=== PATIENT | female | born 1985 | race African-American/Black ===

== ENCOUNTER 2018-03-01 15:16 | Emergency (ER) | payer OTHER ==
--- NOTE | 2018-03-01 16:26 | ED ---
Female Urogenital HPI - General Chief complaint: Urogenital Stated complaint: Female Time Seen by Provider: 03/01/18 16:05 Source: patient Mode of arrival: ambulatory Limitations: no limitations - History of Present Illness Initial comments: Patient is a 32-year-old female presenting for vaginal irritation. The patient states that since Friday, she has been having itching and excoriations in the vaginal area. This is started after she changed lotions and soaps and she then started having symptoms. She adamantly denies any vaginal discharge or bleeding and states that she is in a monogamous relationship although she cannot completely exclude STDs. She denies any abdominal pain, nausea/vomiting/ diarrhea or urinary symptoms. - Related Data Home Medications Medication Instructions Recorded Confirmed Fluticasone Nasal [place] [Flonase 1 spray EA NOSTRIL DAILY PRN 03/01/18 03/01/18 Nasal [place]] Hydrochlorothiazide 12.5 mg PO DAILY 03/01/18 03/01/18 metFORMIN HCL [Glucophage] 500 mg PO BID 03/01/18 03/01/18 sitaGLIPtin [Januvia] 100 mg PO DAILY 03/01/18 03/01/18 Previous Rx's Medication Instructions Recorded Clotrimazole [Clotrimazole 1% Top 1 applic TOPICAL DAILY 7 Days #1 03/01/18 Soln] tube Allergies Allergy/AdvReac Type Severity Reaction Status Date / Time No Known Allergies Allergy Verified 03/01/18 16:56 Review of Systems ROS Statement: Those systems with pertinent positive or pertinent negative responses have been documented in the HPI. Constitutional: Negative for chills, fatigue and fever. HENT: Negative for congestion. Respiratory: Negative for chest tightness, shortness of breath and wheezing. Negative for cough Cardiovascular: Negative for chest pain and palpitations. Gastrointestinal: Negative for abdominal pain. Negative for abdominal distention , diarrhea, nausea and vomiting. Genitourinary: Negative for dysuria. Positive for vaginal itching. Negative for vaginal discharge bleeding Musculoskeletal: Negative for back pain, neck pain and neck stiffness. Skin: Negative for color change. Neurological: Negative for dizziness, speech difficulty, weakness and light- headedness. Psychiatric/Behavioral: Negative for agitation and confusion. Negative for anxiety ROS Other: All systems not noted in ROS Statement are negative. Past Medical History Past Medical History: Diabetes Mellitus, Hypertension History of Any Multi-Drug Resistant Organisms: None Reported Past Surgical History: Section, Tubal Ligation Past Psychological History: No Psychological Hx Reported Smoking Status: Never smoker Past Alcohol Use History: Occasional Past Drug Use History: None Reported General Exam - General Exam Comments Initial Comments: Constitutional: Pt is oriented to person, place, and time. Pt appears well- developed and well-nourished. No distress. HENT: Head: Normocephalic and atraumatic. Eyes: EOM are normal. Neck: Normal range of motion. Neck supple. Cardiovascular: Normal rate, regular rhythm, S1 normal, S2 normal and normal heart sounds. Exam reveals no gallop and no friction rub. No murmur heard. Pulmonary/Chest: Effort normal and breath sounds normal. No tachypnea and no bradypnea. No respiratory distress. No wheezes or rales noted. Abdominal: Soft. Bowel sounds are normal. Pt exhibits no shifting dullness, no distension, no pulsatile liver, no fluid wave, no abdominal bruit and no ascites. There is no tenderness. There is no rigidity, no rebound, no guarding, no tenderness at McBurney's point and negative Lake's sign. Musculoskeletal: Normal range of motion. Neurological: Pt is alert and oriented to person, place, and time. No cranial nerve deficit. Skin: Skin is warm and dry. No rash noted. Pt is not diaphoretic. No erythema. No pallor. Psychiatric: Pt has a normal mood and affect. Pt behavior is normal. Thought content normal. Limitations: no limitations Course Vital Signs 03/01/18 03/01/18 15:33 18:49 Temperature 98.1 F 97 F L Pulse Rate 90 78 Respiratory 18 16 Rate Blood Pressure 137/76 138/70 O2 Sat by Pulse 94 L 99 Oximetry Medical Decision Making - Medical Decision Making Laboratory studies showed that there was significant hyperglycemia of 515 and therefore laboratory studies to evaluate for DKA were ordered. There was no evidence of decreased bicarbonate and HCO3 was measured at 23. There is also no evidence of ketones in the blood and the osmole was measured at 301. Patient was given a liter of fluids as well as 5 units of insulin and blood sugar dropped to 426. The dangers of dropping the glucose quickly with explained to the patient and she expressed understanding. From a vaginal standpoint, it is suspected that the patient's symptoms are secondary to vaginitis and at the patient's request, patient will be tested for gonorrhea and chlamydia but not treated as there is a low suspicion for infection.Explained all labs and diagnostic test results and that we will discharge the patient home and patient is to follow up with PCP in 1-2 days and return to the ED if symptoms worsen. Pt is agreeable to plan. - Lab Data Result diagrams: 03/01/18 16:56 Lab Results 03/01/18 03/01/18 03/01/18 Range/Units 16:29 16:29 16:32 Sodium (137-145) mmol/L Potassium (3.5-5.1) mmol/L Chloride (98-107) mmol/L Carbon Dioxide (22-30) mmol/L Anion Gap mmol/L BUN (7-17) mg/dL Creatinine (0.52-1.04) mg/dL Est GFR (CKD-EPI)AfAm (>60 ml/min/1.73 sqM) Est GFR (CKD-EPI)NonAf (>60 ml/min/1.73 sqM) Glucose (74-99) mg/dL POC Glucose (mg/dL) 519 H (75-99) mg/dL POC Glu Medical Art Therapist ID Osmolality (280-301) mosm/kg Calcium (8.4-10.2) mg/dL Total Bilirubin (0.2-1.3) mg/dL AST (14-36) U/L ALT (9-52) U/L Alkaline Phosphatase (38-126) U/L Total Protein (6.3-8.2) g/dL Albumin (3.5-5.0) g/dL Urine Color Light Yellow Urine Appearance Clear (Clear) Urine pH 5.5 (5.0-8.0) Ur Specific [place] 1.031 (1.001-1.035) Urine Protein Negative (Negative) Urine Glucose (UA) 4+ H (Negative) Urine Ketones 1+ H (Negative) Urine Blood Negative (Negative) Urine Nitrite Negative (Negative) Urine Bilirubin Negative (Negative) Urine Urobilinogen <2.0 (<2.0) mg/dL Ur Leukocyte Esterase Small H (Negative) Urine RBC 18 H (0-5) /hpf Urine WBC 1 (0-5) /hpf Ur Squamous Epith Cells 2 (0-4) /hpf Urine Mucus Rare H (None) /hpf Urine HCG, Qual Not Detected (Not Detectd) Acetone, Qual (Negative) 03/01/18 03/01/18 03/01/18 Range/Units 16:33 16:56 17:38 Sodium 135 L (137-145) mmol/L Potassium 4.2 (3.5-5.1) mmol/L Chloride 101 (98-107) mmol/L Carbon Dioxide 23 (22-30) mmol/L Anion Gap 11 mmol/L BUN 8 (7-17) mg/dL Creatinine 0.45 L (0.52-1.04) mg/dL Est GFR (CKD-EPI)AfAm >90 (>60 ml/min/1.73 sqM) Est GFR (CKD-EPI)NonAf >90 (>60 ml/min/1.73 sqM) Glucose 538 H* (74-99) mg/dL POC Glucose (mg/dL) 515 H 426 H (75-99) mg/dL POC Glu Medical Art Therapist ID Huan Whiting Osmolality 301 (280-301) mosm/kg Calcium 10.0 (8.4-10.2) mg/dL Total Bilirubin 0.4 (0.2-1.3) mg/dL AST 25 (14-36) U/L ALT 30 (9-52) U/L Alkaline Phosphatase 81 (38-126) U/L Total Protein 7.1 (6.3-8.2) g/dL Albumin 3.9 (3.5-5.0) g/dL Urine Color Urine Appearance (Clear) Urine pH (5.0-8.0) Ur Specific [place] (1.001-1.035) Urine Protein (Negative) Urine Glucose (UA) (Negative) Urine Ketones (Negative) Urine Blood (Negative) Urine Nitrite (Negative) Urine Bilirubin (Negative) Urine Urobilinogen (<2.0) mg/dL Ur Leukocyte Esterase (Negative) Urine RBC (0-5) /hpf Urine WBC (0-5) /hpf Ur Squamous Epith Cells (0-4) /hpf Urine Mucus (None) /hpf Urine HCG, Qual (Not Detectd) Acetone, Qual Negative (Negative) Disposition Clinical Impression: Vaginitis, Hyperglycemia Disposition: HOME SELF-CARE Condition: Good Instructions: Vaginitis (ED) Prescriptions: Clotrimazole [Clotrimazole 1% Top Soln] 1 applic TOPICAL DAILY 7 Days #1 tube Is patient prescribed a controlled substance at d/c from ED?: No Referrals: None,Stated [Primary Care Provider] - 1-2 days Time of Disposition: 18:23
[2018-03-01 16:33] LABS: Glucose,Whole Blood 519 mg/dL (75-99)
[2018-03-01] MEDS ORDERED: SODIUM CHLORIDE 0.9% 1,000 ML IV ONE (16:39)
[2018-03-01] MEDS ORDERED: INSULIN REGULAR 100 UNIT/ML VIAL IV ONE (16:40)
[2018-03-01 16:45] LABS: Glucose,Whole Blood 515 mg/dL (75-99)
[2018-03-01 16:54] LABS: Appearance,Urine Clear (Clear); Bilirubin,Urine Negative (Negative); Blood,Urine Negative (Negative); Color,Urine Light Yellow; Glucose,Urine (UA) 4+ (Negative); Ketones,Urine 1+ (Negative); Leukocyte Esterase,Urine Small (Negative); Mucus,Urine Rare /hpf; Nitrite,Urine Negative (Negative); PH, Urine 5.5 (5.0-8.0); Protein,Urine Negative (Negative); RBC,Urine 18 /hpf (0-5); Specific Gravity,Urine 1.031 (1.001-1.035); Squamous Epithelial Cell,Urine 2 /hpf (0-4); Urobilinogen,Urine <2.0 mg/dL (<2.0); WBC,Urine 1 /hpf (0-5)
[2018-03-01 17:20] LABS: ALT 30 U/L (9-52); AST 25 U/L (14-36); Albumin 3.9 g/dL (3.5-5.0); Alkaline Phosphatase 81 U/L (38-126); Anion Gap 11 mmol/L; Blood Urea Nitrogen 8 mg/dL (7-17); Carbon Dioxide 23 mmol/L (22-30); Chloride 101 mmol/L (98-107); Potassium 4.2 mmol/L (3.5-5.1); Sodium 135 mmol/L (137-145); Total Bilirubin 0.4 mg/dL (0.2-1.3); Total Protein 7.1 g/dL (6.3-8.2)
[2018-03-01 17:27] LABS: Glucose 538 mg/dL (74-99)
[2018-03-01 17:41] LABS: Glucose,Whole Blood 426 mg/dL (75-99)
[2018-03-01 18:50] VITALS: BP 138/70; PULSE 78; RESP 16; TEMP 97
[2018-03-04 16:03] LABS: N. gonorrhoeae,PCR Negative (Neg,Equiv); Neisseria Source Urine
[2018-03-04 16:06] LABS: C. trachomatis,PCR Negative (Neg,Equiv); Chlamydia trachomatis Source Urine
== END 2018-03-01 18:49 | disposition home or self-care (01) ==
LOC: EC 15:16
DX: N76.0 Acute vaginitis (principal); E11.65 Type 2 diabetes mellitus with hyperglycemia; I10 Essential (primary) hypertension; Z79.84 Long term (current) use of oral hypoglycemic drugs; Z79.899 Other long term (current) drug therapy; Z98.51 Tubal ligation status
CPT/HCPCS: 36415; 80053; 81001; 81025; 82009; 83930; 87491; 87591; 96360; 96361; 99283

== ENCOUNTER 2018-03-05 13:12 | Emergency (ER) | payer OTHER ==
[2018-03-05 13:29] VITALS: RESP 18; TEMP 98.2
--- NOTE | 2018-03-05 13:58 | ED ---
General Adult HPI - General Chief complaint: Arrhythmia/Palpitations Stated complaint: sore throat/irreg heart beat Source: patient Mode of arrival: ambulatory Limitations: no limitations - History of Present Illness Initial comments: Dictation was produced using [employer] dictation software. please excuse any grammatical, word or spelling errors. Chief Complaint: 32-year-old female presents with chief complaint of palpitations. History of Present Illness: Patient is a 32-year-old -[place]aj[place] female presents with palpitations. Patient states that she last really hard or walks up the stairs she feels as though her heart is beating fast. She states it lasts for couple minutes and goes away spontaneously. Patient was supposed be worked up by her primary care physician last week however she went to [place] did not go get evaluated. Patient is worried about thyroid disease. She denies any recent weight loss. No family history of thyroid disease. Patient otherwise feels fine. The ROS documented in this emergency department record has been reviewed and confirmed by me. Those systems with pertinent positive or negative responses have been documented in the HPI. All other systems are other negative and/or noncontributory. - Related Data Home Medications Medication Instructions Recorded Confirmed Hydrochlorothiazide 12.5 mg PO DAILY 03/01/18 03/05/18 metFORMIN HCL [Glucophage] 1,000 mg PO AC-SUPPER 03/01/18 03/05/18 Previous Rx's Medication Instructions Recorded Calcium Carbonate [Calcium] 600 mg PO DAILY 10 Days #10 tablet 03/05/18 Magnesium Oxide [Trujillo] 500 mg PO BID 4 Days #10 tablet 03/05/18 Allergies Allergy/AdvReac Type Severity Reaction Status Date / Time No Known Allergies Allergy Verified 03/05/18 14:39 Review of Systems ROS Statement: Those systems with pertinent positive or pertinent negative responses have been documented in the HPI. ROS Other: All systems not noted in ROS Statement are negative. Past Medical History Past Medical History: Diabetes Mellitus, Hypertension History of Any Multi-Drug Resistant Organisms: None Reported Past Surgical History: Section, Tubal Ligation Past Psychological History: No Psychological Hx Reported Smoking Status: Never smoker Past Alcohol Use History: Occasional Past Drug Use History: None Reported General Exam - General Exam Comments Initial Comments: PHYSICAL EXAM: General Impression: Alert and oriented x3, not in acute distress HEENT: Normocephalic atraumatic, extra-ocular movements intact, pupils equal and reactive to light bilaterally, mucous membranes moist. Cardiovascular: Heart regular rate and rhythm, S1&S2 audible, no murmurs, rubs or gallops Chest: Lungs clear to auscultation bilaterally, no rhonchi, no wheeze, no rales Abdomen: Bowel sounds present, abdomen soft, non-tender, non-distended, no organomegaly Musculoskeletal: Pulses present and equal in all extremities, no peripheral edema Motor: Power 5/5 bilaterally, no focal deficits noted Neurological: CN II-XII grossly intact, no focal motor or sensory deficits noted Skin: Intact with no visualized rashes Psych: Normal affect and mood Limitations: no limitations Course Vital Signs 03/05/18 03/05/18 03/05/18 13:25 14:04 14:06 Temperature 98.2 F Pulse Rate 65 72 Pulse Rate [ 62 Load Out Person ] Respiratory 18 18 Rate Blood Pressure 120/81 126/69 O2 Sat by Pulse 98 96 Oximetry Medical Decision Making - Medical Decision Making ED course: 29-year-old -[place] female presents with chief complaint of palpitations. Upon arrival are within normal limits. Patient has history of bilateral tubal ligation. No indication for testing.EKG interpretation: Ventricular rate 62, sinus rhythm with sinus arrhythmia, IN interval 140, QS 12, QTc 501. No IN prolongation, QT is slightly prolonged.CBC obtained which is unremarkable. Metabolic panel shows sodium 134. Patient has mild gap acidosis with a bicarb of 20 and a gap of 11. Glucose is 493. Patient 's TSH is within normal limits. Magnesium level is within normal limits. There is strong possibility that patient's symptoms could be secondary to hypomagnesemia given that this is slightly at the lower end of normal. Patient to be discharged with prescription for magnesium, calcium. She is told to withhold her hydrochlorothiazide at this time given that her blood pressure is fine. Patient still to follow-up with cardiology upon discharge. Patient is satisfied with that plan. She was offered to be admitted to observation. - Lab Data Result diagrams: 03/05/18 14:00 03/05/18 14:00 Lab Results 03/05/18 03/05/18 03/05/18 Range/Units 14:00 14:00 14:00 WBC 8.5 (3.8-10.6) k/uL RBC 4.69 (3.80-5.40) m/uL Hgb 12.8 (11.4-16.0) gm/dL Hct 41.7 (34.0-46.0) % MCV 88.9 (80.0-100.0) fL MCH 27.3 (25.0-35.0) pg MCHC 30.7 L (31.0-37.0) g/dL RDW 14.0 (11.5-15.5) % Plt Count 199 (150-450) k/uL Neutrophils % 70 % Lymphocytes % 23 % Monocytes % 4 % Eosinophils % 2 % Basophils % 0 % Neutrophils # 5.9 (1.3-7.7) k/uL Lymphocytes # 2.0 (1.0-4.8) k/uL Monocytes # 0.3 (0-1.0) k/uL Eosinophils # 0.2 (0-0.7) k/uL Basophils # 0.0 (0-0.2) k/uL Hypochromasia Slight APTT 22.2 (22.0-30.0) sec Sodium 134 L (137-145) mmol/L Potassium 4.2 (3.5-5.1) mmol/L Chloride 103 (98-107) mmol/L Carbon Dioxide 20 L (22-30) mmol/L Anion Gap 11 mmol/L BUN 8 (7-17) mg/dL Creatinine 0.51 L (0.52-1.04) mg/dL Est GFR (CKD-EPI)AfAm >90 (>60 ml/min/1.73 sqM) Est GFR (CKD-EPI)NonAf >90 (>60 ml/min/1.73 sqM) Glucose 493 H (74-99) mg/dL Calcium 9.8 (8.4-10.2) mg/dL Magnesium 1.6 (1.6-2.3) mg/dL Total Bilirubin 0.4 (0.2-1.3) mg/dL AST 25 (14-36) U/L ALT 26 (9-52) U/L Alkaline Phosphatase 68 (38-126) U/L Total Protein 7.1 (6.3-8.2) g/dL Albumin 3.9 (3.5-5.0) g/dL TSH 0.929 (0.465-4.680) mIU/L Disposition Clinical Impression: Hypomagnesemia Disposition: HOME SELF-CARE Condition: Good Instructions: Heart Palpitations (ED) Prescriptions: Calcium Carbonate [Calcium] 600 mg PO DAILY 10 Days #10 tablet Magnesium Oxide [Trujillo] 500 mg PO BID 4 Days #10 tablet Is patient prescribed a controlled substance at d/c from ED?: No Referrals: None,Stated [Primary Care Provider] - 1-2 days Wily Jonas MD [STAFF PHYSICIAN] - 1-2 days Time of Disposition: 15:25
[2018-03-05 14:19] LABS: Basophils % (A) 0 %; Eosinophils # (A) 0.2 k/uL (0-0.7); Eosinophils % (A) 2 %; HCT 41.7 % (34.0-46.0); HGB 12.8 gm/dL (11.4-16.0); Hypochromasia Slight; Lymphocytes % (A) 23 %; MCH 27.3 pg (25.0-35.0); MCHC 30.7 g/dL (31.0-37.0); MCV 88.9 fL (80.0-100.0); Mean Platelet Volume 9.6; Monocytes # (A) 0.3 k/uL (0-1.0); Monocytes % (A) 4 %; Neutrophils # (A) 5.9 k/uL (1.3-7.7); Neutrophils % (A) 70 %; Platelet Count 199 k/uL (150-450); RBC 4.69 m/uL (3.80-5.40); WBC 8.5 k/uL (3.8-10.6)
--- NOTE | 2018-03-05 14:28 | XR ---
EXAMINATION TYPE: XR chest 2V DATE OF EXAM: 03/05/2018 COMPARISON: None INDICATION: Dysrhythmia, hypertension, right-sided neck pain TECHNIQUE: Frontal and lateral views of the chest are obtained. FINDINGS: The heart size is normal. The pulmonary vasculature is normal. The lungs are clear. EKG leads overlie the chest. IMPRESSION: 1. No acute pulmonary process.
[2018-03-05 14:30] LABS: ALT 26 U/L (9-52); AST 25 U/L (14-36); Albumin 3.9 g/dL (3.5-5.0); Alkaline Phosphatase 68 U/L (38-126); Anion Gap 11 mmol/L; Blood Urea Nitrogen 8 mg/dL (7-17); Calcium 9.8 mg/dL (8.4-10.2); Carbon Dioxide 20 mmol/L (22-30); Chloride 103 mmol/L (98-107); Glucose 493 mg/dL (74-99); Magnesium 1.6 mg/dL (1.6-2.3); Potassium 4.2 mmol/L (3.5-5.1); Sodium 134 mmol/L (137-145); Total Bilirubin 0.4 mg/dL (0.2-1.3); Total Protein 7.1 g/dL (6.3-8.2)
[2018-03-05] MEDS ORDERED: INSULIN REGULAR 100 UNIT/ML VIAL SQ ONE (15:06)
[2018-03-05 15:24] LABS: Glucose,Whole Blood 383 mg/dL (75-99)
[2018-03-05 15:41] VITALS: BP 117/73; PULSE 68
== END 2018-03-05 15:30 | disposition home or self-care (01) ==
LOC: EC 13:12
DX: E83.42 Hypomagnesemia (principal); E87.2 Acidosis; E11.9 Type 2 diabetes mellitus without complications; I10 Essential (primary) hypertension; Z79.899 Other long term (current) drug therapy; Z79.84 Long term (current) use of oral hypoglycemic drugs; Z98.51 Tubal ligation status
CPT/HCPCS: 36415; 71046; 80053; 83735; 84443; 85025; 85730; 93005; 99285

== ENCOUNTER 2020-09-10 12:41 | Inpatient (IN) | payer OTHER ==
[2020-09-10] MEDS ORDERED: SODIUM CHLORIDE 0.9% 1,000 ML IV STA (13:07)
[2020-09-10] MEDS ORDERED: IBUPROFEN 600 MG TAB PO STA (13:08)
[2020-09-10] MEDS ORDERED: ACETAMINOPHEN TAB 500 MG TAB PO STA (13:08)
--- NOTE | 2020-09-10 13:34 | ED ---
General Adult HPI - General Chief complaint: Shortness of Breath Stated complaint: COVID Time Seen by Provider: 09/10/20 12:45 Source: patient, RN notes reviewed, old records reviewed Mode of arrival: EMS Limitations: no limitations - History of Present Illness Initial comments: This is a 35-year-old female presents to the emergency department stating that she has diagnosed with COVID on . Patient states symptoms began on Friday. Patient comes in today because she's lightheaded and having more difficulty breathing. Patient states she's had some chest tightness but there is no pain. Patient denies any palpitations. Patient denies abdominal pain patient denies any vomiting but states she has been nauseated. Patient states she has had some diarrhea. Patient also states she's had some auscultation smile last couple of days. Patient did not take any Tylenol or Motrin for the fever today. - Related Data Home Medications Medication Instructions Recorded Confirmed Hydrochlorothiazide 12.5 mg PO DAILY 03/01/18 03/05/18 [hydroCHLOROthiazide] metFORMIN HCL [Glucophage] 1,000 mg PO AC-SUPPER 03/01/18 03/05/18 Previous Rx's Medication Instructions Recorded Calcium Carbonate [Calcium] 600 mg PO DAILY 10 Days #10 tablet 03/05/18 Magnesium Oxide [Trujillo] 500 mg PO BID 4 Days #10 tablet 03/05/18 Allergies Allergy/AdvReac Type Severity Reaction Status Date / Time No Known Allergies Allergy Verified 09/10/20 12:49 Review of Systems ROS Statement: Those systems with pertinent positive or pertinent negative responses have been documented in the HPI. ROS Other: All systems not noted in ROS Statement are negative. Past Medical History Past Medical History: Diabetes Mellitus History of Any Multi-Drug Resistant Organisms: None Reported Past Surgical History: Section, Tubal Ligation Past Psychological History: No Psychological Hx Reported Smoking Status: Never smoker Past Alcohol Use History: Occasional Past Drug Use History: None Reported General Exam - General Exam Comments Initial Comments: GENERAL: Patient is well-developed and well-nourished. Patient is nontoxic and well- hydrated and is in mild distress. ENT: Neck is soft and supple. No significant lymphadenopathy is noted. Oropharynx is clear. Moist mucous membranes. Neck has full range of motion without el iciting any pain. EYES: The sclera were anicteric and conjunctiva were pink and moist. Extraocular movements were intact and pupils were equal round and reactive to light. Eyelids were unremarkable. PULMONARY: Unlabored respirations. Good breath sounds bilaterally. No audible rales rhonchi or wheezing was noted. CARDIOVASCULAR: Patient is tachycardic and has a regular rate ABDOMEN: Soft and nontender with normal bowel sounds. SKIN: Skin is clear with no lesions or rashes and otherwise unremarkable. NEUROLOGIC: Patient is alert and oriented x3. Cranial nerves II through XII are grossly intact. Motor and sensory are also intact. Normal speech, volume and content. Symmetrical smile. MUSCULOSKELETAL: Normal extremities with adequate strength and full range of motion. No lower extremity swelling or edema. No calf tenderness. LYMPHATICS: No significant lymphadenopathy is noted PSYCHIATRIC: Normal psychiatric evaluation. Limitations: no limitations Course Vital Signs 09/10/20 09/10/20 09/10/20 12:43 13:02 14:09 Temperature 101.5 F H 100.7 F H Pulse Rate 129 H 123 H Respiratory 24 24 22 Rate Blood Pressure 132/106 130/100 O2 Sat by Pulse 98 94 L Oximetry 09/10/20 14:48 Temperature Pulse Rate 125 H Respiratory 22 Rate Blood Pressure 153/96 O2 Sat by Pulse Oximetry Medical Decision Making - Medical Decision Making EKG shows sinus tachycardia at 134 bpm MO interval 244 QRS is 88 QT interval 02 QTC is 450. Patient's EKG shows no ST segment elevation or depression. Chest x-ray shows diffuse infiltrates consistent with cold. Patient's pH is 7.1 acetone was positive sugar is elevated patient is in DKA. I started the patient on an insulin drip and gave the patient 2 L of fluid she was feeling much better else stated the patient on steroids secondary to the COVID. - Lab Data Result diagrams: 09/10/20 13:20 09/10/20 13:17 Lab Results 09/10/20 09/10/20 09/10/20 Range/Units 13:17 13:17 13:17 WBC (3.8-10.6) k/uL RBC (3.80-5.40) m/uL Hgb (11.4-16.0) gm/dL Hct (34.0-46.0) % MCV (80.0-100.0) fL MCH (25.0-35.0) pg MCHC (31.0-37.0) g/dL RDW (11.5-15.5) % Plt Count (150-450) k/uL MPV Neutrophils % % Lymphocytes % % Monocytes % % Eosinophils % % Basophils % % Neutrophils # (1.3-7.7) k/uL Lymphocytes # (1.0-4.8) k/uL Monocytes # (0-1.0) k/uL Eosinophils # (0-0.7) k/uL Basophils # (0-0.2) k/uL PT 10.0 (9.0-12.0) sec INR 0.9 (<1.2) APTT 24.3 (22.0-30.0) sec D-Dimer 1.84 H (<0.60) mg/L FEU Sample Site ABG pH (7.35-7.45) ABG pCO2 (35-45) mmHg ABG pO2 (83-108) mmHg ABG HCO3 (21-25) mmol/L ABG Total CO2 (19-24) mmol/L ABG O2 Saturation (94-97) % ABG Base Excess mmol/L Felix Test FiO2 % Sodium 135 L (137-145) mmol/L Potassium 5.4 H (3.5-5.1) mmol/L Chloride 103 (98-107) mmol/L Carbon Dioxide <5 L* (22-30) mmol/L Anion Gap mmol/L BUN 8 (7-17) mg/dL Creatinine 0.73 (0.52-1.04) mg/dL Est GFR (CKD-EPI)AfAm >90 (>60 ml/min/1.73 sqM) Est GFR (CKD-EPI)NonAf >90 (>60 ml/min/1.73 sqM) Glucose 424 H (74-99) mg/dL Plasma Lactic Acid Shawn 1.6 (0.7-2.0) mmol/L Calcium 9.4 (8.4-10.2) mg/dL Total Bilirubin 0.4 (0.2-1.3) mg/dL AST 66 H (14-36) U/L ALT 42 H (4-34) U/L Alkaline Phosphatase 83 (38-126) U/L Troponin I (0.000-0.034) ng/mL Total Protein 8.0 (6.3-8.2) g/dL Albumin 4.2 (3.5-5.0) g/dL Acetone, Qual (Negative) Coronavirus (PCR) (Not Detectd) 09/10/20 09/10/20 09/10/20 Range/Units 13:17 13:20 13:20 WBC 8.3 (3.8-10.6) k/uL RBC 5.60 H (3.80-5.40) m/uL Hgb 15.8 (11.4-16.0) gm/dL Hct 48.6 H (34.0-46.0) % MCV 86.8 (80.0-100.0) fL MCH 28.1 (25.0-35.0) pg MCHC 32.4 (31.0-37.0) g/dL RDW 13.4 (11.5-15.5) % Plt Count 193 (150-450) k/uL MPV 10.2 Neutrophils % 81 % Lymphocytes % 13 % Monocytes % 4 % Eosinophils % 0 % Basophils % 1 % Neutrophils # 6.7 (1.3-7.7) k/uL Lymphocytes # 1.1 (1.0-4.8) k/uL Monocytes # 0.3 (0-1.0) k/uL Eosinophils # 0.0 (0-0.7) k/uL Basophils # 0.1 (0-0.2) k/uL PT (9.0-12.0) sec INR (<1.2) APTT (22.0-30.0) sec D-Dimer (<0.60) mg/L FEU Sample Site ABG pH (7.35-7.45) ABG pCO2 (35-45) mmHg ABG pO2 (83-108) mmHg ABG HCO3 (21-25) mmol/L ABG Total CO2 (19-24) mmol/L ABG O2 Saturation (94-97) % ABG Base Excess mmol/L Felix Test FiO2 % Sodium (137-145) mmol/L Potassium (3.5-5.1) mmol/L Chloride (98-107) mmol/L Carbon Dioxide (22-30) mmol/L Anion Gap mmol/L BUN (7-17) mg/dL Creatinine (0.52-1.04) mg/dL Est GFR (CKD-EPI)AfAm (>60 ml/min/1.73 sqM) Est GFR (CKD-EPI)NonAf (>60 ml/min/1.73 sqM) Glucose (74-99) mg/dL Plasma Lactic Acid Shawn (0.7-2.0) mmol/L Calcium (8.4-10.2) mg/dL Total Bilirubin (0.2-1.3) mg/dL AST (14-36) U/L ALT (4-34) U/L Alkaline Phosphatase (38-126) U/L Troponin I <0.012 (0.000-0.034) ng/mL Total Protein (6.3-8.2) g/dL Albumin (3.5-5.0) g/dL Acetone, Qual (Negative) Coronavirus (PCR) Detected A (Not Detectd) 09/10/20 09/10/20 Range/Units 14:23 14:33 WBC (3.8-10.6) k/uL RBC (3.80-5.40) m/uL Hgb (11.4-16.0) gm/dL Hct (34.0-46.0) % MCV (80.0-100.0) fL MCH (25.0-35.0) pg MCHC (31.0-37.0) g/dL RDW (11.5-15.5) % Plt Count (150-450) k/uL MPV Neutrophils % % Lymphocytes % % Monocytes % % Eosinophils % % Basophils % % Neutrophils # (1.3-7.7) k/uL Lymphocytes # (1.0-4.8) k/uL Monocytes # (0-1.0) k/uL Eosinophils # (0-0.7) k/uL Basophils # (0-0.2) k/uL PT (9.0-12.0) sec INR (<1.2) APTT (22.0-30.0) sec D-Dimer (<0.60) mg/L FEU Sample Site L radial ABG pH 7.14 L* (7.35-7.45) ABG pCO2 20 L (35-45) mmHg ABG pO2 59 L* (83-108) mmHg ABG HCO3 7 L* (21-25) mmol/L ABG Total CO2 8 L (19-24) mmol/L ABG O2 Saturation 85.6 L (94-97) % ABG Base Excess -22.3 mmol/L Felix Test Yes FiO2 21 % Sodium (137-145) mmol/L Potassium (3.5-5.1) mmol/L Chloride (98-107) mmol/L Carbon Dioxide (22-30) mmol/L Anion Gap mmol/L BUN (7-17) mg/dL Creatinine (0.52-1.04) mg/dL Est GFR (CKD-EPI)AfAm (>60 ml/min/1.73 sqM) Est GFR (CKD-EPI)NonAf (>60 ml/min/1.73 sqM) Glucose (74-99) mg/dL Plasma Lactic Acid Shawn (0.7-2.0) mmol/L Calcium (8.4-10.2) mg/dL Total Bilirubin (0.2-1.3) mg/dL AST (14-36) U/L ALT (4-34) U/L Alkaline Phosphatase (38-126) U/L Troponin I (0.000-0.034) ng/mL Total Protein (6.3-8.2) g/dL Albumin (3.5-5.0) g/dL Acetone, Qual Positive (Negative) Coronavirus (PCR) (Not Detectd) Critical Care Time Critical Care Time: Yes Total Critical Care Time: 35 Disposition Clinical Impression: Pneumonia due to COVID-19 virus, DKA (diabetic ketoacidoses) Disposition: ADMITTED IP TO THIS HOSP Referrals: Rayo Arroyo MD [Primary Care Provider] - 1-2 days Time of Disposition: 15:09
[2020-09-10 13:57] LABS: Basophils # (A) 0.1 k/uL (0-0.2); Basophils % (A) 1 %; Eosinophils % (A) 0 %; HCT 48.6 % (34.0-46.0); HGB 15.8 gm/dL (11.4-16.0); Lymphocytes # (A) 1.1 k/uL (1.0-4.8); Lymphocytes % (A) 13 %; MCH 28.1 pg (25.0-35.0); MCHC 32.4 g/dL (31.0-37.0); MCV 86.8 fL (80.0-100.0); Mean Platelet Volume 10.2; Monocytes # (A) 0.3 k/uL (0-1.0); Monocytes % (A) 4 %; Neutrophils # (A) 6.7 k/uL (1.3-7.7); Neutrophils % (A) 81 %; Platelet Count 193 k/uL (150-450); RDW 13.4 % (11.5-15.5); WBC 8.3 k/uL (3.8-10.6)
--- NOTE | 2020-09-10 14:05 | XR ---
EXAMINATION TYPE: XR chest 1V portable DATE OF EXAM: 09/10/2020 COMPARISON: 03/05/2018 HISTORY: Dysrhythmia TECHNIQUE: Single frontal view of the chest is obtained. FINDINGS: There are scattered multifocal consolidative opacities in both lungs right reason left whi ch were not present on the prior study in 2018. Heart size is normal and the pulmonary vasculature is not congested. There is no definite pleural effusion or pneumothorax. The osseous structures are int act. IMPRESSION: Bilateral lung opacities consistent with acute cardiopulmonary disease. IMPRESSION: No acute process.
[2020-09-10 14:10] LABS: ALT 42 U/L (4-34); AST 66 U/L (14-36); African American GFR (CKD) >90 (>60 ml/min/1.73 sqM); Albumin 4.2 g/dL (3.5-5.0); Alkaline Phosphatase 83 U/L (38-126); Blood Urea Nitrogen 8 mg/dL (7-17); Calcium 9.4 mg/dL (8.4-10.2); Chloride 103 mmol/L (98-107); Glucose 424 mg/dL (74-99); Non-African American GFR(CKD) >90 (>60 ml/min/1.73 sqM); Potassium 5.4 mmol/L (3.5-5.1); Sodium 135 mmol/L (137-145); Total Bilirubin 0.4 mg/dL (0.2-1.3)
[2020-09-10 14:16] LABS: Carbon Dioxide <5 mmol/L (22-30)
[2020-09-10 14:19] LABS: INR 0.9 (<1.2); Partial Thromboplastin Time 24.3 sec (22.0-30.0)
[2020-09-10] MEDS ORDERED: INSULIN REGULAR BOLUS (FROM DRIP BAG) IV ONE (14:20)
[2020-09-10] MEDS ORDERED: INSULIN REGULAR 100 UNIT in SODIUM CHLORIDE 0.9% 100 ML IV SCH (14:30)
[2020-09-10 14:37] LABS: ABG Base Excess -22.3 mmol/L; ABG Oxygen Saturation 85.6 % (94-97); ABG PCO2 20 mmHg (35-45); ABG TCO2 8 mmol/L (19-24); Allen Test Performed? Yes
[2020-09-10] MEDS ORDERED: SODIUM CHLORIDE 0.9% 1,000 ML IV ONE ×3 (14:44→16:13)
[2020-09-10 14:46] LABS: ABG HCO3 7 mmol/L (21-25); ABG PH 7.14 (7.35-7.45); ABG PO2 59 mmHg (83-108)
[2020-09-10 15:21] LABS: Glucose,Whole Blood 384 mg/dL (75-99)
[2020-09-10] MEDS ORDERED: DEXAMETHASONE SOD PHOSPHATE 10 MG/ML 1 ML VIAL IV STA (15:30)
[2020-09-10 16:04] LABS: Glucose,Whole Blood 365 mg/dL (75-99)
[2020-09-10] MEDS ORDERED: ONDANSETRON 4 MG/2 ML VIAL IVP PRN (16:25)
[2020-09-10] MEDS: INSULIN REGULAR 100 UNIT in SODIUM CHLORIDE 0.9% 100 ML IV SCH ×2 (17:03→23:37)
[2020-09-10] MEDS: CHOLECALCIFEROL 25 MCG (1000 IU) TABLET PO SCH (17:04)
[2020-09-10 17:06] LABS: Glucose,Whole Blood 309 mg/dL (75-99)
[2020-09-10 18:03] LABS: Glucose,Whole Blood 268 mg/dL (75-99)
[2020-09-10 18:12] LABS: Glucose 307 mg/dL (74-99); Potassium 4.8 mmol/L (3.5-5.1)
[2020-09-10 18:13] LABS: African American GFR (CKD) >90 (>60 ml/min/1.73 sqM); Blood Urea Nitrogen 7 mg/dL (7-17); Calcium 8.5 mg/dL (8.4-10.2); Carbon Dioxide 10 mmol/L (22-30); Non-African American GFR(CKD) >90 (>60 ml/min/1.73 sqM); Phosphorus 2.8 mg/dL (2.5-4.5); Sodium 137 mmol/L (137-145)
[2020-09-10 18:48] LABS: Anion Gap 17 mmol/L; Chloride 110 mmol/L (98-107)
[2020-09-10 19:05] LABS: Glucose,Whole Blood 235 mg/dL (75-99)
[2020-09-10 20:00] LABS: Glucose,Whole Blood 214 mg/dL (75-99)
[2020-09-10] MEDS: guaiFENesin 600 MG TABLET.ER PO SCH (20:41)
[2020-09-10 21:07] LABS: Glucose,Whole Blood 172 mg/dL (75-99)
[2020-09-10] MEDS: SYMBICORT 160-4.5 MCG INHALER INHALATION SCH (21:09)
[2020-09-10] MEDS: ALBUTEROL HFA INHALER INHALATION SCH (21:09)
[2020-09-10 21:32] LABS: African American GFR (CKD) >90 (>60 ml/min/1.73 sqM); Anion Gap 14 mmol/L; Blood Urea Nitrogen 8 mg/dL (7-17); Carbon Dioxide 13 mmol/L (22-30); Chloride 109 mmol/L (98-107); Glucose 191 mg/dL (74-99); Non-African American GFR(CKD) >90 (>60 ml/min/1.73 sqM); Phosphorus 1.8 mg/dL (2.5-4.5); Potassium 4.4 mmol/L (3.5-5.1); Sodium 136 mmol/L (137-145)
[2020-09-10] MEDS: SODIUM CHLORIDE 0.9% 1,000 ML IV SCH ×2 (21:42→21:48)
[2020-09-10 21:59] LABS: Glucose,Whole Blood 149 mg/dL (75-99)
[2020-09-10 23:09] LABS: Glucose,Whole Blood 159 mg/dL (75-99)
[2020-09-10] MEDS: ACETAMINOPHEN TAB 325 MG TAB PO PRN (23:45)
[2020-09-11 00:04] LABS: Glucose,Whole Blood 167 mg/dL (75-99)
[2020-09-11 00:08] LABS: African American GFR (CKD) >90 (>60 ml/min/1.73 sqM); Anion Gap 13 mmol/L; Blood Urea Nitrogen 9 mg/dL (7-17); Carbon Dioxide 14 mmol/L (22-30); Chloride 110 mmol/L (98-107); Glucose 172 mg/dL (74-99); Non-African American GFR(CKD) >90 (>60 ml/min/1.73 sqM); Phosphorus 1.6 mg/dL (2.5-4.5); Potassium 4.6 mmol/L (3.5-5.1); Sodium 137 mmol/L (137-145)
[2020-09-11 01:05] LABS: Glucose,Whole Blood 220 mg/dL (75-99)
[2020-09-11 02:07] LABS: Glucose,Whole Blood 193 mg/dL (75-99)
[2020-09-11 03:14] LABS: Glucose,Whole Blood 197 mg/dL (75-99)
[2020-09-11 04:13] LABS: Glucose,Whole Blood 219 mg/dL (75-99)
[2020-09-11 04:21] LABS: African American GFR (CKD) >90 (>60 ml/min/1.73 sqM); Anion Gap 12 mmol/L; Blood Urea Nitrogen 10 mg/dL (7-17); Carbon Dioxide 12 mmol/L (22-30); Chloride 109 mmol/L (98-107); Glucose 228 mg/dL (74-99); Non-African American GFR(CKD) >90 (>60 ml/min/1.73 sqM); Phosphorus 1.8 mg/dL (2.5-4.5); Potassium 4.6 mmol/L (3.5-5.1); Sodium 133 mmol/L (137-145)
[2020-09-11] MEDS: SODIUM CHLORIDE 0.9% 1,000 ML IV SCH ×3 (04:25→18:07)
[2020-09-11 05:08] LABS: Glucose,Whole Blood 199 mg/dL (75-99)
[2020-09-11 06:12] LABS: Glucose,Whole Blood 194 mg/dL (75-99)
[2020-09-11] MEDS: ACETAMINOPHEN TAB 325 MG TAB PO PRN (06:14)
[2020-09-11 07:43] LABS: Glucose,Whole Blood 227 mg/dL (75-99)
[2020-09-11] MEDS: ALBUTEROL HFA INHALER INHALATION SCH ×4 (08:06→18:57)
[2020-09-11] MEDS: SYMBICORT 160-4.5 MCG INHALER INHALATION SCH ×2 (08:06→18:57)
[2020-09-11 08:46] LABS: African American GFR (CKD) >90 (>60 ml/min/1.73 sqM); Blood Urea Nitrogen 10 mg/dL (7-17); Chloride 110 mmol/L (98-107); Glucose 210 mg/dL (74-99); Non-African American GFR(CKD) >90 (>60 ml/min/1.73 sqM); Sodium 134 mmol/L (137-145)
[2020-09-11 08:48] LABS: Glucose,Whole Blood 196 mg/dL (75-99)
[2020-09-11] MEDS ORDERED: DEXAMETHASONE SOD PHOSPHATE 10 MG/ML 1 ML VIAL IV SCH ×2 (09:00→12:00)
[2020-09-11] MEDS ORDERED: ENOXAPARIN 40 MG/0.4 ML SYRINGE SQ SCH (09:00)
[2020-09-11 09:02] LABS: Anion Gap 10 mmol/L; Carbon Dioxide 14 mmol/L (22-30); Potassium 4.4 mmol/L (3.5-5.1)
[2020-09-11] MEDS: guaiFENesin 600 MG TABLET.ER PO SCH ×2 (09:24→23:11)
[2020-09-11] MEDS: CHOLECALCIFEROL 25 MCG (1000 IU) TABLET PO SCH (09:24)
[2020-09-11] MEDS: ZINC SULFATE 220 MG CAP PO SCH (09:24)
[2020-09-11] MEDS ORDERED: IBUPROFEN 600 MG TAB PO PRN (09:51)
[2020-09-11 10:01] LABS: Glucose,Whole Blood 188 mg/dL (75-99)
[2020-09-11] MEDS ORDERED: LINAGLIPTIN 5 MG TABLET PO SCH (10:30)
[2020-09-11] MEDS ORDERED: metFORMIN 500 MG TAB PO SCH (10:30)
[2020-09-11] MEDS ORDERED: REMDESIVIR 200 MG in SODIUM CHLORIDE 0.9% 250 ML IVPB ONE (11:00)
[2020-09-11] MEDS ORDERED: MORPHINE SULFATE 2 MG/ML SYRINGE IVP STA (11:47)
--- NOTE | 2020-09-11 12:05 | P.EN ---
I responded to a rapid response called by nursing staff secondary to hypoxia. Upon arrival to the room, nursing staff informed me that patient O2 sat duration was in the 70s and 80s on 100% nonrebreather. Patient was awake and alert. She appeared agitated and dyspneic. She reports feeling very short of breath. Heart rate was 140s and blood pressure 190/120 I reviewed her charts quickly and noticed that patient was admitted to the hospital with COVID-19 and DKA with severe metabolic acidosis. She was taken off of the DKA protocol this morning. I asked the respiratory therapist up with the patient on a BiPAP with pressure of 16/8 and FiO2 of 100% and patient was given 2 mg IV morphine one-time dose. Her O2 sats improved quickly on BiPAP and was satting 100%. We decreased FiO2 to 80% and order the blood gas with lactic acid. I also ordered a repeat chest x-ray. Chest x-ray from yesterday reviewed and was clear. Patient was still tachypneic with respiratory rate in the 40s. Patient was given one-time dose of IV Decadron 10 mg yesterday. I ordered IV Decadron 6 mg daily starting today Patient was noted to have an elevated d-dimer. I strongly suggest obtaining CT angiogram of the chest to rule out possible PE given significant hypoxia and tachycardia with no significant infiltrate on chest x-ray. Nursing staff to discuss with admitting physician Patient condition was stabilized. Nursing staff we'll admit admitting physician for further orders.
[2020-09-11 12:09] LABS: ABG Base Excess -19.6 mmol/L; ABG Oxygen Saturation 91.1 % (94-97); ABG PCO2 28 mmHg (35-45); ABG PO2 70 mmHg (83-108); ABG TCO2 10 mmol/L (19-24); Allen Test Performed? Yes
[2020-09-11 12:14] LABS: ABG HCO3 9 mmol/L (21-25); ABG PH 7.14 (7.35-7.45)
[2020-09-11] MEDS ORDERED: Phosphorus Replacement Protoco 1 EACH MISC MISCELLANE PRN (12:25)
[2020-09-11] MEDS ORDERED: ALPRAZolam 0.5 MG TAB PO PRN (12:25)
--- NOTE | 2020-09-11 12:31 | XR ---
EXAMINATION TYPE: XR chest 1V portable DATE OF EXAM: 09/11/2020 COMPARISON: 09/10/2020 HISTORY: Worsening shortness of breath TECHNIQUE: Single frontal view of the chest is obtained. FINDINGS: Patchy airspace infiltrates throughout both lung ann compatible with Covid 19 pneumonia. The cardiac silhouette size is within normal limits. The osseous structures are intact. IMPRESSION: 1. Stable bilateral pneumonia.
[2020-09-11 12:34] LABS: Glucose,Whole Blood 353 mg/dL (75-99)
[2020-09-11] MEDS ORDERED: SODIUM BICARB 8.4% 50 ML SYR (1 MEQ/ML) IV STA ×2 (12:38→17:17)
[2020-09-11] MEDS: LORazepam 2 MG/ML INJ IV PRN ×2 (12:56→14:06)
[2020-09-11] MEDS ORDERED: DEXTROSE 5% IN WATER 1,000 ML with SODIUM BICARB (1 MEQ/ML) 100 ML IV SCH (13:15)
[2020-09-11 13:19] LABS: ABG Base Excess -13.2 mmol/L; ABG HCO3 14 mmol/L (21-25); ABG Oxygen Saturation 93.9 % (94-97); ABG PCO2 32 mmHg (35-45); ABG PH 7.25 (7.35-7.45); ABG PO2 72 mmHg (83-108); ABG TCO2 15 mmol/L (19-24); Allen Test Performed? Yes
[2020-09-11 13:42] LABS: ALT 23 U/L (4-34); AST 66 U/L (14-36); African American GFR (CKD) >90 (>60 ml/min/1.73 sqM); Albumin 2.6 g/dL (3.5-5.0); Alkaline Phosphatase 75 U/L (38-126); Anion Gap 15 mmol/L; Blood Urea Nitrogen 10 mg/dL (7-17); C Reactive Protein 8.7 mg/dL (<1.0); Calcium 7.9 mg/dL (8.4-10.2); Chloride 111 mmol/L (98-107); Glucose 378 mg/dL (74-99); Non-African American GFR(CKD) >90 (>60 ml/min/1.73 sqM); Potassium 5.1 mmol/L (3.5-5.1); Sodium 133 mmol/L (137-145); Total Bilirubin 0.3 mg/dL (0.2-1.3); Total Protein 5.7 g/dL (6.3-8.2)
[2020-09-11 13:48] LABS: LDH 2048 U/L (313-618)
[2020-09-11 13:48] LABS: Glucose,Whole Blood 357 mg/dL (75-99)
[2020-09-11 13:54] LABS: Carbon Dioxide 7 mmol/L (22-30)
[2020-09-11] MEDS: DEXTROSE 5% IN WATER 1,000 ML with SODIUM BICARB (1 MEQ/ML) 150 ML IV SCH ×2 (14:00→22:27)
[2020-09-11] MEDS ORDERED: TOCILIZUMAB 800 MG in SODIUM CHLORIDE 0.9% 60 ML IV ONE (15:00)
[2020-09-11] MEDS ORDERED: propofoL 100 ML IV ONE (15:29)
[2020-09-11] MEDS ORDERED: DEXMEDETOMIDINE/0.9% NACL(PMX) 400 MCG in EMPTY BAG 1 BAG IV SCH (15:30)
[2020-09-11] MEDS ORDERED: MORPHINE SULFATE 4 MG/ML SYRINGE IVP PRN (15:36)
--- NOTE | 2020-09-11 15:44 | P.HPIM ---
History of Present Illness H&P Date: 09/11/20 35 years old female patient of Dr. Chou with past medical history of type 2 diabetes comes in with acute shortness of breath associated with high light sugars. Patient on admission was found to have a fever of 101.5 pulse rate 125 respiratory rate 20. Blood pressure 132/106. On chest x-ray obtained in the ER suggestive of bilateral infiltrates concerning for call with pneumonia. COVID PCR was positive. On admissions patient had an ABG with a pH of 7.14 pCO2 of 20, pO2 of 59, bicarb of 7. Patient's blood sugar on admission was 424 on assessment today patient's blood work patient had a sodium 135 potassium 5.4 chloride 123 bicarb less than 5 and creatinine 0.73. D-dimer was elevated on admission patient 9 28 patient given 1 L of IV fluids followed by normal saline running at 200 mL/h. Patient was positive for acetone on admission. She will anion gap closed and was switched to D5NS. Insulin drip was continued during the night and was switched to patient's home medication this morning. One dose of remdesiver was ordered. Apparently around noon, A- team was called on the patient secondary to hypoxia patient's oxygen saturation dropped to the 70s and 80s on 100% nonrebreather. Patient was switched to BiPAP on 18/12 and is doing better o FiO2 of 80%. ABG was obtained and ph was 7. 14 pCO2 of 28 bicarb of 7 pO2 of 17. Patient noted to have uncompensated metabolic acidosis with compensated respiratory alkalosis. Stat dose of 1 amp bicarb was given and followed by sodium bicarbonate drip. Insulin drip restarted. Patient's initiated on dexamethasone 6 mg IV twice a day. Potassium phosphate ordered as phosphorus is low. Patient's repeat blood gases suggest a pH of 7.25, CO2 32 pO2 of 72 bicarb 14. I will not normal saline at 100 mL/h as patient's anion gap has increased. Patient given 1 dose of 2 mg of morphine with improvement in respiratory rate. One dose of Ativan 0.5 mg was given. Xanax 0.25 twice a day along with Ativan 0.5 IV every 6 hours ordered for the patient. Vitals were evaluated patient pulse 129 [id number]. She was moved to the ICU. Precedex drip was initiated. Lopressor was initiated at 25 twice a day. Metoprolol tartrate 5 mg IV every 6 hours. Systolic blood pressure more than 160. Started chest x-ray was obtained and suggest stable bilateral consolidation suggestive of COVID-19 pneumonia. Review of Systems Constitutional: Questionable fever, lethargic, increased anxiety Eyes: denies decreased vision, denies diplopia, denies discharge, denies pain Ears: deny: decreased hearing Ears, nose, mouth and throat: Denies dental pain, Denies headache, Denies nasal discharge, Denies nose pain Cardiovascular: Denies chest pain, Denies decreased exercise tolerance, Denies edema, Denies high blood pressure, Denies irregular heart beat, Denies palpitations, Denies paroxysmal nocturnal dyspnea, Denies rapid heart beat, Denies shortness of breath Respiratory: Endorses shortness of breath, denies cough, Denies cough with sputum, Denies dyspnea, Denies home oxygen, Denies wheezing Gastrointestinal: Denies abdominal pain, Denies change in bowel habits, Denies coffee ground emesis, Denies early satiety, Denies excessive gas, Denies heartburn, Denies hematemesis, Denies hematochezia, Denies loss of appetite, Denies nausea, Denies vomiting Genitourinary: Denies dysuria, Denies flank pain, Denies kidney stones, Denies menorrhagia, Denies urgency, Denies urinary frequency Musculoskeletal: Denies gait dysfunction, Denies limitation of motion, Denies morning stiffness, Denies muscle cramps Integumentary: Denies rash, Denies wounds, Denies brittle nails, Denies change i n hair/nails, Denies darkening of skin Neurological: Denies balance difficulties, Denies change in speech, Denies double vision, Denies gait dysfunction, Denies loss of vision, Denies motor disturbance, Denies numbness, Denies paralysis, Denies paresthesias, Denies seizures Psychiatric: Endorses anxiety, Denies depression Endocrine: Denies excessive sweating, Denies excessive thirst, Denies high blood sugars, Denies palpitations Hematologic/Lymphatic: Denies easy bruising, Denies lymphadenopathy Past Medical History Past Medical History: Diabetes Mellitus History of Any Multi-Drug Resistant Organisms: None Reported Past Surgical History: Section, Tubal Ligation Past Psychological History: No Psychological Hx Reported Smoking Status: Never smoker Past Alcohol Use History: Occasional Past Drug Use History: None Reported Medications and Allergies Home Medications Medication Instructions Recorded Confirmed Type metFORMIN HCL 1,000 mg PO BID 09/10/20 09/10/20 History sitaGLIPtin PHOSPHATE [Januvia] 100 mg PO DAILY 09/10/20 09/10/20 History Allergies Allergy/AdvReac Type Severity Reaction Status Date / Time No Known Allergies Allergy Verified 09/10/20 15:23 Physical Exam Vitals: Vital Signs Temp Pulse Pulse Resp BP BP Pulse Ox 09/11/20 09:20 98 F 129 H 22 134/59 98 09/11/20 06:10 21 94 L 09/11/20 06:00 100.3 F H 129 H 22 167/83 90 L 09/10/20 23:20 98 F 126 H 19 121/59 92 L 09/10/20 20:40 98.4 F 127 H 20 127/64 94 L 09/10/20 16:00 98 F 104 H 26 H 136/84 92 L 09/10/20 15:29 98.9 F 115 H 22 118/86 94 L 09/10/20 14:48 125 H 22 153/96 09/10/20 14:09 100.7 F H 123 H 22 130/100 94 L 09/10/20 13:02 24 09/10/20 12:43 101.5 F H 129 H 24 132/106 98 Intake and Output 09/10/20 09/11/20 09/11/20 22:59 06:59 14:59 Intake Total 535.238 8.896 49.299 Balance 535.238 8.896 49.299 Intake: Intake, IV Titration 55.238 8.896 49.299 Amount Insulin Regular 100 unit 55.238 8.896 49.299 In Sodium Chloride 0.9% 100 ml @ 0.1 UNITS/KG/HR 10.125 mls/hr IV .[id number] [facility] Rx#:[id number] Oral 480 Other: Voiding Method Toilet Toilet Weight 100.244 kg - Constitutional General appearance: uncooperative, severe distress on BiPAP, obese - EENT Eyes: anicteric sclerae, PERRLA, normal appearance ENT: hearing grossly normal - Neck Neck: no lymphadenopathy, normal ROM, no other, no rigidity, no stridor, no thyromegaly - Respiratory Respiratory: bilateral: Decreased air entry with crackles bilaterally posteriorly - Cardiovascular Rhythm: Tachycardic Heart sounds: normal: S1, S2 Abnormal Heart Sounds: no systolic murmur, no diastolic murmur, no rub, no S3 Gallop, no S4 Gallop, no click, no other - Gastrointestinal General gastrointestinal: normal bowel sounds, soft nontender - Integumentary Integumentary: no rash - Neurologic Neurologic: CNII-XII intact - Musculoskeletal Musculoskeletal: gait not assessed, strength equal bilaterally - Psychiatric Psychiatric: A&O x's 3, and anxious Results CBC & Chem 7: 09/12/20 04:15 09/12/20 04:15 Labs: Abnormal Lab Results - Last 24 Hours (Table) 09/10/20 09/10/20 09/10/20 Range/Units 13:17 13:17 13:20 RBC 5.60 H (3.80-5.40) m/uL Hct 48.6 H (34.0-46.0) % D-Dimer 1.84 H (<0.60) mg/L FEU ABG pH (7.35-7.45) ABG pCO2 (35-45) mmHg ABG pO2 (83-108) mmHg ABG HCO3 (21-25) mmol/L ABG Total CO2 (19-24) mmol/L ABG O2 Saturation (94-97) % Sodium 135 L (137-145) mmol/L Potassium 5.4 H (3.5-5.1) mmol/L Chloride (98-107) mmol/L Carbon Dioxide <5 L* (22-30) mmol/L Glucose 424 H (74-99) mg/dL POC Glucose (mg/dL) (75-99) mg/dL Phosphorus (2.5-4.5) mg/dL AST 66 H (14-36) U/L ALT 42 H (4-34) U/L Coronavirus (PCR) (Not Detectd) 09/10/20 09/10/20 09/10/20 Range/Units 13:20 14:33 15:01 RBC (3.80-5.40) m/uL Hct (34.0-46.0) % D-Dimer (<0.60) mg/L FEU ABG pH 7.14 L* (7.35-7.45) ABG pCO2 20 L (35-45) mmHg ABG pO2 59 L* (83-108) mmHg ABG HCO3 7 L* (21-25) mmol/L ABG Total CO2 8 L (19-24) mmol/L ABG O2 Saturation 85.6 L (94-97) % Sodium (137-145) mmol/L Potassium (3.5-5.1) mmol/L Chloride (98-107) mmol/L Carbon Dioxide (22-30) mmol/L Glucose (74-99) mg/dL POC Glucose (mg/dL) 384 H (75-99) mg/dL Phosphorus (2.5-4.5) mg/dL AST (14-36) U/L ALT (4-34) U/L Coronavirus (PCR) Detected A (Not Detectd) 09/10/20 09/10/20 09/10/20 Range/Units 16:00 17:04 17:34 RBC (3.80-5.40) m/uL Hct (34.0-46.0) % D-Dimer (<0.60) mg/L FEU ABG pH (7.35-7.45) ABG pCO2 (35-45) mmHg ABG pO2 (83-108) mmHg ABG HCO3 (21-25) mmol/L ABG Total CO2 (19-24) mmol/L ABG O2 Saturation (94-97) % Sodium (137-145) mmol/L Potassium (3.5-5.1) mmol/L Chloride 110 H (98-107) mmol/L Carbon Dioxide 10 L (22-30) mmol/L Glucose 307 H (74-99) mg/dL POC Glucose (mg/dL) 365 H 309 H (75-99) mg/dL Phosphorus (2.5-4.5) mg/dL AST (14-36) U/L ALT (4-34) U/L Coronavirus (PCR) (Not Detectd) 09/10/20 09/10/20 09/10/20 Range/Units 18:02 19:01 19:57 RBC (3.80-5.40) m/uL Hct (34.0-46.0) % D-Dimer (<0.60) mg/L FEU ABG pH (7.35-7.45) ABG pCO2 (35-45) mmHg ABG pO2 (83-108) mmHg ABG HCO3 (21-25) mmol/L ABG Total CO2 (19-24) mmol/L ABG O2 Saturation (94-97) % Sodium (137-145) mmol/L Potassium (3.5-5.1) mmol/L Chloride (98-107) mmol/L Carbon Dioxide (22-30) mmol/L Glucose (74-99) mg/dL POC Glucose (mg/dL) 268 H 235 H 214 H (75-99) mg/dL Phosphorus (2.5-4.5) mg/dL AST (14-36) U/L ALT (4-34) U/L Coronavirus (PCR) (Not Detectd) 09/10/20 09/10/20 09/10/20 Range/Units 21:01 21:04 21:55 RBC (3.80-5.40) m/uL Hct (34.0-46.0) % D-Dimer (<0.60) mg/L FEU ABG pH (7.35-7.45) ABG pCO2 (35-45) mmHg ABG pO2 (83-108) mmHg ABG HCO3 (21-25) mmol/L ABG Total CO2 (19-24) mmol/L ABG O2 Saturation (94-97) % Sodium 136 L (137-145) mmol/L Potassium (3.5-5.1) mmol/L Chloride 109 H (98-107) mmol/L Carbon Dioxide 13 L (22-30) mmol/L Glucose 191 H (74-99) mg/dL POC Glucose (mg/dL) 172 H 149 H (75-99) mg/dL Phosphorus 1.8 L (2.5-4.5) mg/dL AST (14-36) U/L ALT (4-34) U/L Coronavirus (PCR) (Not Detectd) 09/10/20 09/10/20 09/11/20 Range/Units 23:06 23:41 00:01 RBC (3.80-5.40) m/uL Hct (34.0-46.0) % D-Dimer (<0.60) mg/L FEU ABG pH (7.35-7.45) ABG pCO2 (35-45) mmHg ABG pO2 (83-108) mmHg ABG HCO3 (21-25) mmol/L ABG Total CO2 (19-24) mmol/L ABG O2 Saturation (94-97) % Sodium (137-145) mmol/L Potassium (3.5-5.1) mmol/L Chloride 110 H (98-107) mmol/L Carbon Dioxide 14 L (22-30) mmol/L Glucose 172 H (74-99) mg/dL POC Glucose (mg/dL) 159 H 167 H (75-99) mg/dL Phosphorus 1.6 L (2.5-4.5) mg/dL AST (14-36) U/L ALT (4-34) U/L Coronavirus (PCR) (Not Detectd) 09/11/20 09/11/20 09/11/20 Range/Units 01:02 02:06 03:08 RBC (3.80-5.40) m/uL Hct (34.0-46.0) % D-Dimer (<0.60) mg/L FEU ABG pH (7.35-7.45) ABG pCO2 (35-45) mmHg ABG pO2 (83-108) mmHg ABG HCO3 (21-25) mmol/L ABG Total CO2 (19-24) mmol/L ABG O2 Saturation (94-97) % Sodium (137-145) mmol/L Potassium (3.5-5.1) mmol/L Chloride (98-107) mmol/L Carbon Dioxide (22-30) mmol/L Glucose (74-99) mg/dL POC Glucose (mg/dL) 220 H 193 H 197 H (75-99) mg/dL Phosphorus (2.5-4.5) mg/dL AST (14-36) U/L ALT (4-34) U/L Coronavirus (PCR) (Not Detectd) 09/11/20 09/11/20 09/11/20 Range/Units 03:53 04:09 05:03 RBC (3.80-5.40) m/uL Hct (34.0-46.0) % D-Dimer (<0.60) mg/L FEU ABG pH (7.35-7.45) ABG pCO2 (35-45) mmHg ABG pO2 (83-108) mmHg ABG HCO3 (21-25) mmol/L ABG Total CO2 (19-24) mmol/L ABG O2 Saturation (94-97) % Sodium 133 L (137-145) mmol/L Potassium (3.5-5.1) mmol/L Chloride 109 H (98-107) mmol/L Carbon Dioxide 12 L (22-30) mmol/L Glucose 228 H (74-99) mg/dL POC Glucose (mg/dL) 219 H 199 H (75-99) mg/dL Phosphorus 1.8 L (2.5-4.5) mg/dL AST (14-36) U/L ALT (4-34) U/L Coronavirus (PCR) (Not Detectd) 09/11/20 09/11/20 09/11/20 Range/Units 06:08 07:22 07:56 RBC (3.80-5.40) m/uL Hct (34.0-46.0) % D-Dimer (<0.60) mg/L FEU ABG pH (7.35-7.45) ABG pCO2 (35-45) mmHg ABG pO2 (83-108) mmHg ABG HCO3 (21-25) mmol/L ABG Total CO2 (19-24) mmol/L ABG O2 Saturation (94-97) % Sodium (137-145) mmol/L Potassium (3.5-5.1) mmol/L Chloride (98-107) mmol/L Carbon Dioxide (22-30) mmol/L Glucose (74-99) mg/dL POC Glucose (mg/dL) 194 H 227 H (75-99) mg/dL Phosphorus 1.5 L (2.5-4.5) mg/dL AST (14-36) U/L ALT (4-34) U/L Coronavirus (PCR) (Not Detectd) 09/11/20 09/11/20 Range/Units 07:56 08:27 RBC (3.80-5.40) m/uL Hct (34.0-46.0) % D-Dimer (<0.60) mg/L FEU ABG pH (7.35-7.45) ABG pCO2 (35-45) mmHg ABG pO2 (83-108) mmHg ABG HCO3 (21-25) mmol/L ABG Total CO2 (19-24) mmol/L ABG O2 Saturation (94-97) % Sodium 134 L (137-145) mmol/L Potassium (3.5-5.1) mmol/L Chloride 110 H (98-107) mmol/L Carbon Dioxide 14 L (22-30) mmol/L Glucose 210 H (74-99) mg/dL POC Glucose (mg/dL) 196 H (75-99) mg/dL Phosphorus (2.5-4.5) mg/dL AST (14-36) U/L ALT (4-34) U/L Coronavirus (PCR) (Not Detectd) Thrombosis Risk Factor Assmnt - DVT/VTE Prophylaxis DVT/VTE Prophylaxis: Pharmacologic Prophylaxis ordered - Choose All That Apply Any of the Below Risk Factors Present?: No Assessment and Plan Plan: #1 acute diabetes ketoacidosis secondary to COVID pneumonia. Status post 1 L IV bolus. Anion gap improved initially. Currently back in acute diabetic ketoacidosis. Continue insulin drip hold metformin and Januvia. Continue monitoring electrolytes. Normal saline to be continued at 100 mL/h with b icarbonate drip per pulmonary. ABGs improved after placing patient on BiPAP. #2 acute hypoxic respiratory failure secondary to COVID pneumonia. Dexamethasone 6 mg IV twice a day continue vitamin C, vitamin D and zinc. Pro- air inhaler every 6 hours. Pulmicort twice daily. Status post one dose of MS air. Pulmonary consulted patient is a candidate for Tocilizumab. CTA ordered to rule out PE #3 acute metabolic acidosis with respiratory alkalosis secondary to DKA. Continue normal saline at 100 mL per hour in addition to D5W with bicarb to help with anion gap. Repeat ABG as needed #4 sepsis secondary to COVID 19 pneumonia pro-calcitonin ordered. Chest x-ray suggestive of COVID-19 pneumonia. #5 type 2 uncontrolled diabetes A1c of 13.6 on metformin and Januvia as outpatient. Metformin and Januvia on hold continue insulin drip for now #6 anxiety status post Ativan with minimal improvement currently on Precedex drip #7 hypophosphatemia status post phosphate replacement #8 hyperkalemia secondary to DKA. Continue to watch for hyponatremia #9 sinus tachycardia secondary to volume deficiency. Continue normal saline at 100 mL per hour. #10 hypertension metoprolol initiated with the twice a day. #9 DVT prophylaxis Lovenox 40 subcu daily #10 GI prophylaxis pantoprazole 40 daily #11 CODE STATUS full code
[2020-09-11] MEDS ORDERED: CISATRACURIUM 2 MG/ML 5 ML VIAL IV ONE ×2 (15:52→15:55)
[2020-09-11] MEDS ORDERED: SODIUM CHLORIDE 0.9% 1,000 ML IV ONE ×2 (15:56→19:28)
[2020-09-11] MEDS: POTASSIUM PHOSPHATE 10 MMOL in SODIUM CHLORIDE 0.9% 250 ML IV SCH ×3 (16:00→20:20)
--- NOTE | 2020-09-11 16:25 | XR ---
EXAMINATION TYPE: XR chest 1V portable DATE OF EXAM: 09/11/2020 COMPARISON: Prior chest x-ray 09/11/2020 at earlier time HISTORY: Intubation TECHNIQUE: Single frontal view of the chest is obtained. FINDINGS: Endotracheal tube, NG tube have been placed in the interval and are overlying appropriate position, distal tip the NG tube not included on exam. Bilateral confluent airspace disease is presen t, there are differences in technique, there may have been some progression. Cardiac mediastinal silh ouette appears prominently although patient is rotated. There are overlying artifacts. No evident pne umothorax. IMPRESSION: No evident complication status post intubation.
[2020-09-11 16:32] LABS: Glucose,Whole Blood 380 mg/dL (75-99)
[2020-09-11 16:59] LABS: Glucose,Whole Blood 384 mg/dL (75-99)
[2020-09-11 17:00] LABS: ABG Base Excess -18.8 mmol/L; ABG HCO3 12 mmol/L (21-25); ABG Oxygen Saturation 83.3 % (94-97); ABG PCO2 42 mmHg (35-45); ABG TCO2 13 mmol/L (19-24); Allen Test Performed? Yes
[2020-09-11] MEDS: INSULIN REGULAR 100 UNIT in SODIUM CHLORIDE 0.9% 100 ML IV SCH ×2 (17:00→20:24)
[2020-09-11 17:01] LABS: ABG PH 7.05 (7.35-7.45); ABG PO2 59 mmHg (83-108)
[2020-09-11] MEDS ORDERED: Magnesium Replacement Protocol 1 EACH MISC MISCELLANE PRN (17:15)
[2020-09-11] MEDS ORDERED: Potassium Replacement Protocol 1 EACH MISC MISCELLANE PRN (17:15)
--- NOTE | 2020-09-11 17:20 | P.CNPUL ---
History of Present Illness Consult date: 09/11/20 Requesting physician: Alma Echevarria Reason for consult: hypoxemia, pneumonia Chief complaint: Shortness of breath History of present illness: This is a 55-year-old -[place] female with history of type 2 diabetes, admitted today through the emergency room with a few days' history of increased shortness of breath, cough, fever, chest x-ray in the ER showed bilateral infiltrates consistent with COVID-19 pneumonia in the patient had positive PCR for COVID-19 infection. Patient had significantly abnormal labs on admission, she had an extremely low bicarb, extremely low pH, and marginal oxygenation at best. Patient was admitted to the regular medical floor, and I happened to be rounding on that same floor were and I was notified about this patient having worsening respiratory distress. Evaluated the patient, clearly the patient has DKA and she clearly has acute hypoxic respiratory failure secondary to COVID-19 pneumonia. As soon as I laid eyes on the patient, recommended immediate transfer to the ICU. Patient was placed on BiPAP however she did not tolerate BiPAP well, and when I went back to evaluate the patient in the ICU, she was basically deteriorating, and she was using her accessory muscles, patient was in severe respiratory distress. Hence I recommended immediate intubation and placement on mechanical ventilation. Chest x-ray continued to show bilateral infiltrates consistent with worsening COVID-19 pneumonia ABG showed a pO2 of 59 pCO2 of 42 pH of 7.05 and this was on the 100% FiO2 20 of PEEP tidal volume of 375 rate of 36. Patient will be given more bicarb and she is already on a bicarb drip. She is receiving insulin and she is also receiving IV fluids in the form of 0.9 normal saline. Sugars were 384. Inflammatory markers were added to be extremely high, LDH 2048, and C-reactive protein of 8.7. D-dimer was borderline elevated at 1.84. Review of Systems Constitutional: Fevers, weakness. Eyes: Negative. Ears: Negative. Ears, negative. Cardiovascular: Negative. Respiratory: As noted in HPI. Gastrointestinal: Negative. Genitourinary: Negative. Musculoskeletal: Negative. Integumentary: Negative Neurological: Negative Psychiatric: Negative Endocrine: Negative Hematologic/Lymphatic: Negative Past Medical History Past Medical History: Diabetes Mellitus History of Any Multi-Drug Resistant Organisms: None Reported Past Surgical History: Section, Tubal Ligation Past Psychological History: No Psychological Hx Reported Smoking Status: Never smoker Past Alcohol Use History: Occasional Past Drug Use History: None Reported Medications and Allergies Home Medications Medication Instructions Recorded Confirmed Type metFORMIN HCL 1,000 mg PO BID 09/10/20 09/10/20 History sitaGLIPtin PHOSPHATE [Januvia] 100 mg PO DAILY 09/10/20 09/10/20 History Allergies Allergy/AdvReac Type Severity Reaction Status Date / Time No Known Allergies Allergy Verified 09/10/20 15:23 Physical Exam Vitals: Vital Signs Temp Pulse Resp BP Pulse Ox 09/11/20 11:10 100.3 F H 141 H 44 H 187/92 68 L 09/11/20 09:20 98 F 129 H 20 134/59 98 09/11/20 06:10 21 94 L 09/11/20 06:00 100.3 F H 129 H 22 167/83 90 L 09/10/20 23:20 98 F 126 H 19 121/59 92 L 09/10/20 20:40 98.4 F 127 H 20 127/64 94 L Intake and Output 09/11/20 09/11/20 09/11/20 06:59 14:59 22:59 Intake Total 8.896 49.299 Output Total 800 Balance 8.896 -750.701 Intake: Intake, IV Titration 8.896 49.299 Amount Insulin Regular 100 unit 8.896 49.299 In Sodium Chloride 0.9% 100 ml @ 0.1 UNITS/KG/HR 10.125 mls/hr IV .[id number] [facility] Rx#:[id number] Output: Urine 800 Other: Voiding Method Toilet Toilet Weight 100.244 kg Physical Exam: Revealed a 55-year-old female in moderate respiratory distress, immediately transferred to the ICU upon my initial evaluation on the regular medical floor. Head: Atraumatic normocephalic. HEENT:[Neck is supple.] [No neck masses.] [No thyromegaly.] [No JVD.] Chest: Patient seems to be using her accessory muscles, she has crackles and rhonchi bilaterally. Cardiac Exam: Tachycardic. [Normal S1 and S2, no S3 gallop, no murmur.] Abdomen: Obese [Soft, nontender, no megaly, no rebound, no guarding, normal bowel sounds.] Extremities: [No clubbing, no edema, no cyanosis.] Neurological Exam: Anxious, alert oriented 3 focal deficits. Psychiatric: Anxious mood, blunt affect, normal mental status examination. Skin: No rashes. Results - Laboratory Findings CBC and BMP: 09/10/20 13:20 09/11/20 12:56 ABG ABG pH 7.05 (7.35-7.45) L* 09/11/20 16:55 ABG pCO2 42 mmHg (35-45) 09/11/20 16:55 ABG pO2 59 mmHg (83-108) L* 09/11/20 16:55 ABG O2 Saturation 83.3 % (94-97) L 09/11/20 16:55 PT/INR, D-dimer PT 10.0 sec (9.0-12.0) 09/10/20 13:17 INR 0.9 (<1.2) 09/10/20 13:17 D-Dimer 1.84 mg/L FEU (<0.60) H 09/10/20 13:17 Abnormal lab findings: Abnormal Labs 09/10/20 09/10/20 09/10/20 13:17 13:17 13:20 RBC 5.60 H Hct 48.6 H D-Dimer 1.84 H ABG pH ABG pCO2 ABG pO2 ABG HCO3 ABG Total CO2 ABG O2 Saturation Sodium 135 L Potassium 5.4 H Chloride Carbon Dioxide <5 L* Glucose 424 H POC Glucose (mg/dL) Hemoglobin A1c Calcium Phosphorus AST 66 H ALT 42 H Lactate Dehydrogenase C-Reactive Protein Total Protein Albumin Coronavirus (PCR) 09/10/20 09/10/20 09/10/20 13:20 14:33 15:01 RBC Hct D-Dimer ABG pH 7.14 L* ABG pCO2 20 L ABG pO2 59 L* ABG HCO3 7 L* ABG Total CO2 8 L ABG O2 Saturation 85.6 L Sodium Potassium Chloride Carbon Dioxide Glucose POC Glucose (mg/dL) 384 H Hemoglobin A1c Calcium Phosphorus AST ALT Lactate Dehydrogenase C-Reactive Protein Total Protein Albumin Coronavirus (PCR) Detected A 09/10/20 09/10/20 09/10/20 16:00 17:04 17:34 RBC Hct D-Dimer ABG pH ABG pCO2 ABG pO2 ABG HCO3 ABG Total CO2 ABG O2 Saturation Sodium Potassium Chloride 110 H Carbon Dioxide 10 L Glucose 307 H POC Glucose (mg/dL) 365 H 309 H Hemoglobin A1c Calcium Phosphorus AST ALT Lactate Dehydrogenase C-Reactive Protein Total Protein Albumin Coronavirus (PCR) 09/10/20 09/10/20 09/10/20 18:02 19:01 19:57 RBC Hct D-Dimer ABG pH ABG pCO2 ABG pO2 ABG HCO3 ABG Total CO2 ABG O2 Saturation Sodium Potassium Chloride Carbon Dioxide Glucose POC Glucose (mg/dL) 268 H 235 H 214 H Hemoglobin A1c Calcium Phosphorus AST ALT Lactate Dehydrogenase C-Reactive Protein Total Protein Albumin Coronavirus (PCR) 09/10/20 09/10/20 09/10/20 21:01 21:04 21:55 RBC Hct D-Dimer ABG pH ABG pCO2 ABG pO2 ABG HCO3 ABG Total CO2 ABG O2 Saturation Sodium 136 L Potassium Chloride 109 H Carbon Dioxide 13 L Glucose 191 H POC Glucose (mg/dL) 172 H 149 H Hemoglobin A1c Calcium Phosphorus 1.8 L AST ALT Lactate Dehydrogenase C-Reactive Protein Total Protein Albumin Coronavirus (PCR) 09/10/20 09/10/20 09/11/20 23:06 23:41 00:01 RBC Hct D-Dimer ABG pH ABG pCO2 ABG pO2 ABG HCO3 ABG Total CO2 ABG O2 Saturation Sodium Potassium Chloride 110 H Carbon Dioxide 14 L Glucose 172 H POC Glucose (mg/dL) 159 H 167 H Hemoglobin A1c Calcium Phosphorus 1.6 L AST ALT Lactate Dehydrogenase C-Reactive Protein Total Protein Albumin Coronavirus (PCR) 09/11/20 09/11/20 09/11/20 01:02 02:06 03:08 RBC Hct D-Dimer ABG pH ABG pCO2 ABG pO2 ABG HCO3 ABG Total CO2 ABG O2 Saturation Sodium Potassium Chloride Carbon Dioxide Glucose POC Glucose (mg/dL) 220 H 193 H 197 H Hemoglobin A1c Calcium Phosphorus AST ALT Lactate Dehydrogenase C-Reactive Protein Total Protein Albumin Coronavirus (PCR) 09/11/20 09/11/20 09/11/20 03:53 03:53 04:09 RBC Hct D-Dimer ABG pH ABG pCO2 ABG pO2 ABG HCO3 ABG Total CO2 ABG O2 Saturation Sodium 133 L Potassium Chloride 109 H Carbon Dioxide 12 L Glucose 228 H POC Glucose (mg/dL) 219 H Hemoglobin A1c 13.6 H Calcium Phosphorus 1.8 L AST ALT Lactate Dehydrogenase C-Reactive Protein Total Protein Albumin Coronavirus (PCR) 09/11/20 09/11/20 09/11/20 05:03 06:08 07:22 RBC Hct D-Dimer ABG pH ABG pCO2 ABG pO2 ABG HCO3 ABG Total CO2 ABG O2 Saturation Sodium Potassium Chloride Carbon Dioxide Glucose POC Glucose (mg/dL) 199 H 194 H 227 H Hemoglobin A1c Calcium Phosphorus AST ALT Lactate Dehydrogenase C-Reactive Protein Total Protein Albumin Coronavirus (PCR) 09/11/20 09/11/20 09/11/20 07:56 07:56 08:27 RBC Hct D-Dimer ABG pH ABG pCO2 ABG pO2 ABG HCO3 ABG Total CO2 ABG O2 Saturation Sodium 134 L Potassium Chloride 110 H Carbon Dioxide 14 L Glucose 210 H POC Glucose (mg/dL) 196 H Hemoglobin A1c Calcium Phosphorus 1.5 L AST ALT Lactate Dehydrogenase C-Reactive Protein Total Protein Albumin Coronavirus (PCR) 09/11/20 09/11/20 09/11/20 09:40 11:58 12:14 RBC Hct D-Dimer ABG pH 7.14 L* ABG pCO2 28 L ABG pO2 70 L ABG HCO3 9 L* ABG Total CO2 10 L ABG O2 Saturation 91.1 L Sodium Potassium Chloride Carbon Dioxide Glucose POC Glucose (mg/dL) 188 H 353 H Hemoglobin A1c Calcium Phosphorus AST ALT Lactate Dehydrogenase C-Reactive Protein Total Protein Albumin Coronavirus (PCR) 09/11/20 09/11/20 09/11/20 12:56 13:10 13:45 RBC Hct D-Dimer ABG pH 7.25 L ABG pCO2 32 L ABG pO2 72 L ABG HCO3 14 L ABG Total CO2 15 L ABG O2 Saturation 93.9 L Sodium 133 L Potassium Chloride 111 H Carbon Dioxide 7 L* Glucose 378 H POC Glucose (mg/dL) 357 H Hemoglobin A1c Calcium 7.9 L Phosphorus AST 66 H ALT Lactate Dehydrogenase 2048 H C-Reactive Protein 8.7 H Total Protein 5.7 L Albumin 2.6 L Coronavirus (PCR) 09/11/20 09/11/20 09/11/20 16:31 16:55 16:58 RBC Hct D-Dimer ABG pH 7.05 L* ABG pCO2 ABG pO2 59 L* ABG HCO3 12 L ABG Total CO2 13 L ABG O2 Saturation 83.3 L Sodium Potassium Chloride Carbon Dioxide Glucose POC Glucose (mg/dL) 380 H 384 H Hemoglobin A1c Calcium Phosphorus AST ALT Lactate Dehydrogenase C-Reactive Protein Total Protein Albumin Coronavirus (PCR) - Diagnostic Findings Chest x-ray: image reviewed (As noted in HPI.) Assessment and Plan Assessment: Impression: Acute diabetic ketoacidosis Acute hypoxic respiratory failure secondary to COVID-19 pneumonia Sepsis secondary to COVID-19 pneumonia Type 2 diabetes poorly controlled. Hemoglobin A1c of 13.6. Sinus tachycardia mostly secondary to volume depletion Elevated inflammatory markers secondary to acute COVID-19 pneumonia History of hypertension. Generalized anxiety disorder. Recommendation: Continue ventilatory support, patient is maximized on FiO2 and maximized on PEEP Continue toci, stop REM Continue Decadron. Continue Lovenox, no need for CT angiogram of the chest, patient is not stable enough for CT angiogram of the chest. Continue treatment for the DKA as per protocol. Sodium bicarb drip to be given since the patient is extremely acidotic continue IV fluids in the form of 0.9 normal saline, patient was given fluid boluses. Continue insulin as per protocol. Overall prognosis is extremely guarded. We'll continue to follow. Critical care time is over one hour, not including the time spent on procedures Time with Patient: Greater than 30
[2020-09-11 17:29] LABS: Magnesium 1.5 mg/dL (1.6-2.3)
[2020-09-11] MEDS: METOPROLOL TARTRATE 25 MG TAB PO SCH ×2 (17:54→23:11)
[2020-09-11 18:07] LABS: Glucose,Whole Blood 355 mg/dL (75-99)
[2020-09-11] MEDS: CISATRACURIUM 200 MG in SODIUM CHLORIDE 0.9% 180 ML IV SCH (18:08)
[2020-09-11] MEDS: D5-0.45% NACL WITH KCL 20MEQ/L 1,000 ML IV SCH (18:45)
[2020-09-11 19:37] LABS: ABG Base Excess -11.2 mmol/L; ABG HCO3 17 mmol/L (21-25); ABG PCO2 40 mmHg (35-45); ABG PH 7.22 (7.35-7.45); ABG TCO2 18 mmol/L (19-24); Allen Test Performed? Yes
[2020-09-11 19:38] LABS: ABG PO2 47 mmHg (83-108)
[2020-09-11 19:56] LABS: Glucose,Whole Blood 320 mg/dL (75-99)
[2020-09-11] MEDS: MAGNESIUM SULFATE-D5W PMX 1 GM in DEXTROSE/WATER 1 100ML.BAG IVPB SCH ×2 (20:24→22:27)
[2020-09-11 20:57] LABS: Glucose,Whole Blood 324 mg/dL (75-99)
[2020-09-11] MEDS ORDERED: PANTOPRAZOLE 40 MG/10 ML VIAL IVP SCH (21:00)
[2020-09-11] MEDS ORDERED: ARTIFICIAL TEARS-HYPROMELLOSE DROPS 15 ML BTL BOTH EYES PRN (21:30)
--- NOTE | 2020-09-11 21:52 | OP ---
OPERATIVE REPORT OPERATIVE REPORT: Placement of right femoral triple-lumen catheter. PREOPERATIVE DIAGNOSIS: Acute hypoxic respiratory failure and COVID-19 pneumonia as well as diabetic ketoacidosis. POSTOPERATIVE DIAGNOSIS: Acute hypoxic respiratory failure and COVID-19 pneumonia as well as diabetic ketoacidosis. ANESTHESIA USED: 2 mL of 1% lidocaine. PROCEDURE DESCRIPTION: The patient was placed in supine position. The right groin was prepared in a sterile fashion and drapes were applied. The area was locally anesthetized. Then the right femoral vein was easily cannulated, and a guidewire was placed. The area around the guidewire was dilated. Then a triple-lumen catheter was inserted over the guidewire, and the guidewire was removed. Good blood flow was noted in the 3 different ports of the triple-lumen catheter. Line was secured using 3.0 silk sutures. Procedure was well tolerated with no complications. MMODL / IJN: [id number] /
--- NOTE | 2020-09-11 22:00 | OP ---
OPERATIVE REPORT OPERATIVE REPORT: Placement of a right radial arterial line. PREOPERATIVE DIAGNOSIS: Acute hypoxic respiratory failure secondary to covid-19 pneumonia. POSTOPERATIVE DIAGNOSIS: Acute hypoxic respiratory failure secondary to covid-19 pneumonia. ANESTHESIA USED: None deployed. PROCEDURE DESCRIPTION: The right wrist was prepared in a sterile fashion. Drapes were applied. The right radial artery was palpated, cannulated, and a guidewire was placed. A Cook's catheter was inserted over the guidewire, and the guidewire was removed. Good blood flow, good waveform noted. Line was secured using 3.0 silk sutures. MMODL / IJN: [id number] /
[2020-09-11 22:07] LABS: Glucose,Whole Blood 310 mg/dL (75-99)
[2020-09-11] MEDS: ASCORBIC ACID 500 MG TAB PO SCH (23:11)
[2020-09-11] MEDS: CHLORHEXIDINE GLUCONATE 15 ML CUP MUCOUS MEM SCH (23:19)
[2020-09-11] MEDS: DEXAMETHASONE SOD PHOSPHATE 10 MG/ML 1 ML VIAL IV SCH (23:20)
[2020-09-11 23:31] LABS: Glucose,Whole Blood 310 mg/dL (75-99)
[2020-09-12 01:01] LABS: Glucose,Whole Blood 261 mg/dL (75-99)
[2020-09-12 02:51] LABS: Glucose,Whole Blood 188 mg/dL (75-99)
[2020-09-12] MEDS: SODIUM CHLORIDE 0.9% 1,000 ML IV SCH ×3 (03:00→23:58)
[2020-09-12 03:37] LABS: Ferritin 1398.9 ng/mL (10.0-291.0)
[2020-09-12] MEDS: INSULIN REGULAR 100 UNIT in SODIUM CHLORIDE 0.9% 100 ML IV SCH ×3 (04:15→18:10)
[2020-09-12 04:23] LABS: Glucose,Whole Blood 159 mg/dL (75-99)
[2020-09-12 04:46] LABS: HCT 41.6 % (34.0-46.0); HGB 14.4 gm/dL (11.4-16.0); MCH 28.5 pg (25.0-35.0); MCHC 34.6 g/dL (31.0-37.0); MCV 82.2 fL (80.0-100.0); Mean Platelet Volume 9.3; Platelet Count 194 k/uL (150-450); RBC 5.06 m/uL (3.80-5.40); RDW 13.4 % (11.5-15.5); WBC 10.3 k/uL (3.8-10.6)
[2020-09-12 05:05] LABS: Glucose,Whole Blood 165 mg/dL (75-99)
[2020-09-12 05:59] LABS: ABG Base Excess -3.8 mmol/L; ABG HCO3 22 mmol/L (21-25); ABG Oxygen Saturation 92.5 % (94-97); ABG PCO2 40 mmHg (35-45); ABG PH 7.35 (7.35-7.45); ABG PO2 62 mmHg (83-108); ABG TCO2 23 mmol/L (19-24); Allen Test Performed? Yes
[2020-09-12 06:06] LABS: Glucose,Whole Blood 137 mg/dL (75-99)
[2020-09-12 06:07] LABS: Calcium 6.6 mg/dL (8.4-10.2); Potassium 3.7 mmol/L (3.5-5.1)
[2020-09-12 06:23] LABS: C Reactive Protein 18.2 mg/dL (<1.0)
[2020-09-12] MEDS ORDERED: FUROSEMIDE 10 MG/ML 4 ML VIAL IV STA (06:41)
[2020-09-12] MEDS ORDERED: POTASSIUM PHOSPHATE 10 MMOL in SODIUM CHLORIDE 0.9% 100 ML IV ONE (07:00)
[2020-09-12 07:22] LABS: Glucose,Whole Blood 149 mg/dL (75-99)
[2020-09-12] MEDS: ALBUTEROL HFA INHALER INHALATION SCH ×4 (07:40→20:47)
[2020-09-12] MEDS: SYMBICORT 160-4.5 MCG INHALER INHALATION SCH ×2 (07:40→21:07)
[2020-09-12 07:59] LABS: Glucose,Whole Blood 142 mg/dL (75-99)
[2020-09-12] MEDS: PANTOPRAZOLE 40 MG/10 ML VIAL IVP SCH (08:25)
[2020-09-12] MEDS: DEXAMETHASONE SOD PHOSPHATE 10 MG/ML 1 ML VIAL IV SCH ×2 (08:26→20:40)
[2020-09-12] MEDS: CHLORHEXIDINE GLUCONATE 15 ML CUP MUCOUS MEM SCH ×2 (08:26→20:39)
[2020-09-12] MEDS ORDERED: ENOXAPARIN 40 MG/0.4 ML SYRINGE SQ SCH (09:00)
[2020-09-12 09:04] LABS: Glucose,Whole Blood 200 mg/dL (75-99)
[2020-09-12] MEDS ORDERED: SODIUM CHLORIDE 0.9% 2,000 ML IV ONE ×2 (09:35→13:30)
[2020-09-12 10:11] LABS: Glucose,Whole Blood 239 mg/dL (75-99)
[2020-09-12] MEDS: ENOXAPARIN 60 MG/0.6 ML SYRINGE SQ SCH ×2 (10:33→20:42)
[2020-09-12] MEDS: NOREPINEPHRINE 8 MG in SODIUM CHLORIDE 0.9% 250 ML IV SCH ×2 (10:33→23:36)
[2020-09-12 10:52] LABS: Glucose,Whole Blood 212 mg/dL (75-99)
[2020-09-12 10:54] LABS: ABG Base Excess -3.9 mmol/L; ABG HCO3 21 mmol/L (21-25); ABG Oxygen Saturation 96.2 % (94-97); ABG PCO2 36 mmHg (35-45); ABG PH 7.38 (7.35-7.45); ABG PO2 74 mmHg (83-108); ABG TCO2 22 mmol/L (19-24); Allen Test Performed? Yes
--- NOTE | 2020-09-12 12:02 | P.PN ---
Subjective Progress Note Date: 09/12/20 Principal diagnosis: DKA, COVID-19 pneumonia This is a 55-year-old -[place] female with history of type 2 diabetes, admitted today through the emergency room with a few days' history of increased shortness of breath, cough, fever, chest x-ray in the ER showed bilateral i nfiltrates consistent with COVID-19 pneumonia in the patient had positive PCR for COVID-19 infection. Patient had significantly abnormal labs on admission, she had an extremely low bicarb, extremely low pH, and marginal oxygenation at best. Patient was admitted to the regular medical floor, and I happened to be rounding on that same floor were and I was notified about this patient having worsening respiratory distress. Evaluated the patient, clearly the patient has DKA and she clearly has acute hypoxic respiratory failure secondary to COVID-19 pneumonia. As soon as I laid eyes on the patient, recommended immediate transfer to the ICU. Patient was placed on BiPAP however she did not tolerate BiPAP well, and when I went back to evaluate the patient in the ICU, she was basically deteriorating, and she was using her accessory muscles, patient was in severe respiratory distress. Hence I recommended immediate intubation and placement on mechanical ventilation. Chest x-ray continued to show bilateral infiltrates consistent with worsening COVID-19 pneumonia ABG showed a pO2 of 59 pCO2 of 42 pH of 7.05 and this was on the 100% FiO2 20 of PEEP tidal volume of 375 rate of 36. Patient will be given more bicarb and she is already on a bicarb drip. She is receiving insulin and she is also receiving IV fluids in the form of 0.9 normal saline. Sugars were 384. Inflammatory markers were added to be extremely high, LDH 2048, and C-reactive protein of 8.7. D-dimer was borderline elevated at 1.84. On 09/12/2020 patient seen in follow-up in the intensive care unit, yesterday she was emergently transferred to the intensive care and intubated and placed on mechanical ventilator. She remains intubated, sedated on mechanical ventilator, currently on assist control mode of ventilation with a rate 36, tidal vital 375, FiO2 100% and PEEP of 20. This might blood gas reveals pO2 of 62, pCO2 40, pH of 7.35 this was done on FiO2 of 80%, her peak airway pressure is 35, in her plateau pressure is around 32. she is sedated on Diprivan and 60 mics per kilo per minute, 0.9 normal saline at 100 ML per hour, insulin drip is at 4 units per hour, and she has 5% dextrose with 3 units of bicarbonate at 100 ML per hour. Today's labs have been reviewed, showing white blood cell count 10.3, hemoglobin of 14.4, d-dimer has increased to 14.31, and her Lovenox was adjusted and increased to 50 mg twice daily, sodium is 137, potassium is 3.7, chloride is 112, CO2 is up to 21, BUN of 16 creatinine is 1.57, LDH is 2618, CRP is 18.2. Pro-Calcitonin level came back elevated at 3.53, suggesting possibility of bacterial infection She received a liter bolus yesterday after intubation. We w ill give the patient additional fluid boluses today. Sputum culture has been sent and is pending, blood cultures have been sent. Patient has been placed in prone position at 8:00 last night, and her oxygenation seems to be improved and she satting 97% on 100% FiO2 and subsequently FiO2 was dropped down to 80%, and PEEP is down to 18. She remains in prone positioning, tolerating it well, she is having low-grade fevers, she is in sinus mechanism with tachycardic on the monitor, not requiring any vasopressor support right now, will start tube feedings today when the patient is placed back over in the supine position Objective - Vital Signs Vital signs: Vital Signs Temp 100.4 F H 09/12/20 08:00 Pulse 112 H 09/12/20 10:00 Resp 36 H 09/12/20 10:00 BP 144/72 09/11/20 16:30 Pulse Ox 95 09/12/20 10:00 Intake & Output 09/11/20 09/12/20 09/12/20 18:59 06:59 18:59 Intake Total 3712.367 3167.001 1817.067 Output Total 1500 785 40 Balance 2212.367 2382.001 1777.067 Weight 100.244 kg 101.8 kg 101.8 kg Intake: IV 3650 2800 700 Dextrose 5% in Water 1, 750 1250 300 000 ml @ 100 mls/hr IV . [id number] [place] with Sodium Bicarb (1 Meq/ml) 150 ml Rx#:[id number] Magnesium Sulfate-D5w Pmx 100 1 gm In Dextrose/Water 1 100ml.bag @ 100 mls/hr IVPB Q1H [facility] Rx#: [id number] Potassium Phosphate 10 500 250 mmol In Sodium Chloride 0 .9% 250 ml @ 125 mls/hr IV Q2H [facility] Rx#:[id number] Sodium Chloride 0.9% 1, 300 1200 400 000 ml @ 100 mls/hr IV . Q10H [facility] Rx#:[id number] Sodium Chloride 0.9% 1, 2000 000 ml @ 999 mls/hr IV . Q1H1M [facility] Rx#:[id number] Tocilizumab 800 mg In 100 Sodium Chloride 0.9% 60 ml @ 100 mls/hr IV ONCE [facility] Rx#:[id number] Intake, IV Titration 62.367 979.970 3290.067 Amount Cisatracurium 200 mg In 10.627 Sodium Chloride 0.9% 180 ml @ 1 MCG/KG/MIN 6.015 mls/hr IV .Q24H [facility] Rx#: [id number] Insulin Regular 100 unit 49.299 In Sodium Chloride 0.9% 100 ml @ 0.1 UNITS/KG/HR 10.125 mls/hr IV .Q9H59M [facility] Rx#:[id number] Insulin Regular 100 unit 12.667 156.775 17.067 In Sodium Chloride 0.9% 100 ml @ 0.1 UNITS/KG/HR 10.125 mls/hr IV .Q9H59M [facility] Rx#:[id number] Sodium Chloride 0.9% 2, 1000 000 ml @ 999 mls/hr IV . Q2H1M [facility] Rx#:[id number] propofoL 1,000 mg In 0.401 199.599 100 Empty Bag 1 bag @ Titrate IV .Q0M [facility] Rx#: [id number] Output: Gastric Drainage 600 Urine 1500 185 40 Other: Voiding Method Indwelling Catheter Indwelling Catheter ABP, PAP, CO, CI - Last Documented Arterial Blood Pressure 123/63 - Exam GENERAL EXAM: Sedated, intubated, -[place]ron[place] female, in prone position, on assist control mode of ventilation with FiO2 her percent and PEEP of 20, with a pulse ox of 97% comfortable in no apparent distress. HEAD: Normocephalic/atraumatic. EYES: Normal reaction of pupils, equal size. Conjunctiva pink, sclera white. NOSE: Clear with pink turbinates. THROAT: No erythema or exudates. NECK: No masses, no JVD, no thyroid enlargement, no adenopathy. CHEST: No chest wall deformity. Symmetrical expansion. LUNGS: Equal air entry with bilateral crackles CVS: Regular rate and rhythm, normal S1 and S2, no gallops, no murmurs, no rubs ABDOMEN: Soft, nontender. No hepatosplenomegaly, normal bowel sounds, no guarding or rigidity. EXTREMITIES: No clubbing, no edema, no cyanosis, 2+ pulses and upper and lower extremities. MUSCULOSKELETAL: Muscle strength and tone normal. SPINE: No scoliosis or deformity SKIN: No rashes CENTRAL NERVOUS SYSTEM: Sedated, intubated. No focal deficits, tone is normal in all 4 extremities. - Labs CBC & Chem 7: 09/12/20 04:15 09/12/20 04:15 Labs: Abnormal Lab Results - Last 24 Hours (Table) 09/11/20 09/11/20 09/11/20 Range/Units 03:53 11:58 12:14 D-Dimer (<0.60) mg/L FEU ABG pH 7.14 L* (7.35-7.45) ABG pCO2 28 L (35-45) mmHg ABG pO2 70 L (83-108) mmHg ABG HCO3 9 L* (21-25) mmol/L ABG Total CO2 10 L (19-24) mmol/L ABG O2 Saturation 91.1 L (94-97) % Sodium (137-145) mmol/L Chloride (98-107) mmol/L Carbon Dioxide (22-30) mmol/L Creatinine (0.52-1.04) mg/dL Glucose (74-99) mg/dL POC Glucose (mg/dL) 353 H (75-99) mg/dL Hemoglobin A1c 13.6 H (4.0-6.0) % Calcium (8.4-10.2) mg/dL Phosphorus (2.5-4.5) mg/dL Magnesium (1.6-2.3) mg/dL Ferritin (10.0-291.0) ng/mL AST (14-36) U/L Lactate Dehydrogenase (313-618) U/L C-Reactive Protein (<1.0) mg/dL Total Protein (6.3-8.2) g/dL Albumin (3.5-5.0) g/dL Procalcitonin (0.02-0.09) ng/mL 09/11/20 09/11/20 09/11/20 Range/Units 12:56 12:56 12:56 D-Dimer (<0.60) mg/L FEU ABG pH (7.35-7.45) ABG pCO2 (35-45) mmHg ABG pO2 (83-108) mmHg ABG HCO3 (21-25) mmol/L ABG Total CO2 (19-24) mmol/L ABG O2 Saturation (94-97) % Sodium 133 L (137-145) mmol/L Chloride 111 H (98-107) mmol/L Carbon Dioxide 7 L* (22-30) mmol/L Creatinine (0.52-1.04) mg/dL Glucose 378 H (74-99) mg/dL POC Glucose (mg/dL) (75-99) mg/dL Hemoglobin A1c (4.0-6.0) % Calcium 7.9 L (8.4-10.2) mg/dL Phosphorus (2.5-4.5) mg/dL Magnesium (1.6-2.3) mg/dL Ferritin 1035.5 H (10.0-291.0) ng/mL AST 66 H (14-36) U/L Lactate Dehydrogenase 2048 H (313-618) U/L C-Reactive Protein 8.7 H (<1.0) mg/dL Total Protein 5.7 L (6.3-8.2) g/dL Albumin 2.6 L (3.5-5.0) g/dL Procalcitonin 0.51 H (0.02-0.09) ng/mL 09/11/20 09/11/20 09/11/20 Range/Units 13:10 13:45 16:31 D-Dimer (<0.60) mg/L FEU ABG pH 7.25 L (7.35-7.45) ABG pCO2 32 L (35-45) mmHg ABG pO2 72 L (83-108) mmHg ABG HCO3 14 L (21-25) mmol/L ABG Total CO2 15 L (19-24) mmol/L ABG O2 Saturation 93.9 L (94-97) % Sodium (137-145) mmol/L Chloride (98-107) mmol/L Carbon Dioxide (22-30) mmol/L Creatinine (0.52-1.04) mg/dL Glucose (74-99) mg/dL POC Glucose (mg/dL) 357 H 380 H (75-99) mg/dL Hemoglobin A1c (4.0-6.0) % Calcium (8.4-10.2) mg/dL Phosphorus (2.5-4.5) mg/dL Magnesium (1.6-2.3) mg/dL Ferritin (10.0-291.0) ng/mL AST (14-36) U/L Lactate Dehydrogenase (313-618) U/L C-Reactive Protein (<1.0) mg/dL Total Protein (6.3-8.2) g/dL Albumin (3.5-5.0) g/dL Procalcitonin (0.02-0.09) ng/mL 09/11/20 09/11/20 09/11/20 Range/Units 16:51 16:51 16:55 D-Dimer (<0.60) mg/L FEU ABG pH 7.05 L* (7.35-7.45) ABG pCO2 (35-45) mmHg ABG pO2 59 L* (83-108) mmHg ABG HCO3 12 L (21-25) mmol/L ABG Total CO2 13 L (19-24) mmol/L ABG O2 Saturation 83.3 L (94-97) % Sodium (137-145) mmol/L Chloride (98-107) mmol/L Carbon Dioxide (22-30) mmol/L Creatinine (0.52-1.04) mg/dL Glucose (74-99) mg/dL POC Glucose (mg/dL) (75-99) mg/dL Hemoglobin A1c (4.0-6.0) % Calcium (8.4-10.2) mg/dL Phosphorus (2.5-4.5) mg/dL Magnesium 1.5 L (1.6-2.3) mg/dL Ferritin 1398.9 H (10.0-291.0) ng/mL AST (14-36) U/L Lactate Dehydrogenase (313-618) U/L C-Reactive Protein (<1.0) mg/dL Total Protein (6.3-8.2) g/dL Albumin (3.5-5.0) g/dL Procalcitonin 3.53 H (0.02-0.09) ng/mL 09/11/20 09/11/20 09/11/20 Range/Units 16:58 18:05 19:34 D-Dimer (<0.60) mg/L FEU ABG pH 7.22 L (7.35-7.45) ABG pCO2 (35-45) mmHg ABG pO2 47 L* (83-108) mmHg ABG HCO3 17 L (21-25) mmol/L ABG Total CO2 18 L (19-24) mmol/L ABG O2 Saturation 81.0 L (94-97) % Sodium (137-145) mmol/L Chloride (98-107) mmol/L Carbon Dioxide (22-30) mmol/L Creatinine (0.52-1.04) mg/dL Glucose (74-99) mg/dL POC Glucose (mg/dL) 384 H 355 H (75-99) mg/dL Hemoglobin A1c (4.0-6.0) % Calcium (8.4-10.2) mg/dL Phosphorus (2.5-4.5) mg/dL Magnesium (1.6-2.3) mg/dL Ferritin (10.0-291.0) ng/mL AST (14-36) U/L Lactate Dehydrogenase (313-618) U/L C-Reactive Protein (<1.0) mg/dL Total Protein (6.3-8.2) g/dL Albumin (3.5-5.0) g/dL Procalcitonin (0.02-0.09) ng/mL 09/11/20 09/11/20 09/11/20 Range/Units 19:55 20:56 22:06 D-Dimer (<0.60) mg/L FEU ABG pH (7.35-7.45) ABG pCO2 (35-45) mmHg ABG pO2 (83-108) mmHg ABG HCO3 (21-25) mmol/L ABG Total CO2 (19-24) mmol/L ABG O2 Saturation (94-97) % Sodium (137-145) mmol/L Chloride (98-107) mmol/L Carbon Dioxide (22-30) mmol/L Creatinine (0.52-1.04) mg/dL Glucose (74-99) mg/dL POC Glucose (mg/dL) 320 H 324 H 310 H (75-99) mg/dL Hemoglobin A1c (4.0-6.0) % Calcium (8.4-10.2) mg/dL Phosphorus (2.5-4.5) mg/dL Magnesium (1.6-2.3) mg/dL Ferritin (10.0-291.0) ng/mL AST (14-36) U/L Lactate Dehydrogenase (313-618) U/L C-Reactive Protein (<1.0) mg/dL Total Protein (6.3-8.2) g/dL Albumin (3.5-5.0) g/dL Procalcitonin (0.02-0.09) ng/mL 09/11/20 09/12/20 09/12/20 Range/Units 23:29 00:00 00:00 D-Dimer (<0.60) mg/L FEU ABG pH (7.35-7.45) ABG pCO2 (35-45) mmHg ABG pO2 (83-108) mmHg ABG HCO3 (21-25) mmol/L ABG Total CO2 (19-24) mmol/L ABG O2 Saturation (94-97) % Sodium (137-145) mmol/L Chloride (98-107) mmol/L Carbon Dioxide (22-30) mmol/L Creatinine 1.09 H (0.52-1.04) mg/dL Glucose (74-99) mg/dL POC Glucose (mg/dL) 310 H (75-99) mg/dL Hemoglobin A1c (4.0-6.0) % Calcium (8.4-10.2) mg/dL Phosphorus 2.4 L (2.5-4.5) mg/dL Magnesium (1.6-2.3) mg/dL Ferritin (10.0-291.0) ng/mL AST (14-36) U/L Lactate Dehydrogenase (313-618) U/L C-Reactive Protein (<1.0) mg/dL Total Protein (6.3-8.2) g/dL Albumin (3.5-5.0) g/dL Procalcitonin (0.02-0.09) ng/mL 09/12/20 09/12/20 09/12/20 Range/Units 01:00 02:49 04:15 D-Dimer 14.31 H (<0.60) mg/L FEU ABG pH (7.35-7.45) ABG pCO2 (35-45) mmHg ABG pO2 (83-108) mmHg ABG HCO3 (21-25) mmol/L ABG Total CO2 (19-24) mmol/L ABG O2 Saturation (94-97) % Sodium (137-145) mmol/L Chloride (98-107) mmol/L Carbon Dioxide (22-30) mmol/L Creatinine (0.52-1.04) mg/dL Glucose (74-99) mg/dL POC Glucose (mg/dL) 261 H 188 H (75-99) mg/dL Hemoglobin A1c (4.0-6.0) % Calcium (8.4-10.2) mg/dL Phosphorus (2.5-4.5) mg/dL Magnesium (1.6-2.3) mg/dL Ferritin (10.0-291.0) ng/mL AST (14-36) U/L Lactate Dehydrogenase (313-618) U/L C-Reactive Protein (<1.0) mg/dL Total Protein (6.3-8.2) g/dL Albumin (3.5-5.0) g/dL Procalcitonin (0.02-0.09) ng/mL 09/12/20 09/12/20 09/12/20 Range/Units 04:15 04:21 05:02 D-Dimer (<0.60) mg/L FEU ABG pH (7.35-7.45) ABG pCO2 (35-45) mmHg ABG pO2 (83-108) mmHg ABG HCO3 (21-25) mmol/L ABG Total CO2 (19-24) mmol/L ABG O2 Saturation (94-97) % Sodium (137-145) mmol/L Chloride 112 H (98-107) mmol/L Carbon Dioxide 21 L (22-30) mmol/L Creatinine 1.57 H (0.52-1.04) mg/dL Glucose 188 H (74-99) mg/dL POC Glucose (mg/dL) 159 H 165 H (75-99) mg/dL Hemoglobin A1c (4.0-6.0) % Calcium 6.6 L (8.4-10.2) mg/dL Phosphorus (2.5-4.5) mg/dL Magnesium (1.6-2.3) mg/dL Ferritin (10.0-291.0) ng/mL AST (14-36) U/L Lactate Dehydrogenase 2618 H (313-618) U/L C-Reactive Protein 18.2 H (<1.0) mg/dL Total Protein (6.3-8.2) g/dL Albumin (3.5-5.0) g/dL Procalcitonin (0.02-0.09) ng/mL 09/12/20 09/12/20 09/12/20 Range/Units 05:57 06:05 07:21 D-Dimer (<0.60) mg/L FEU ABG pH (7.35-7.45) ABG pCO2 (35-45) mmHg ABG pO2 62 L (83-108) mmHg ABG HCO3 (21-25) mmol/L ABG Total CO2 (19-24) mmol/L ABG O2 Saturation 92.5 L (94-97) % Sodium (137-145) mmol/L Chloride (98-107) mmol/L Carbon Dioxide (22-30) mmol/L Creatinine (0.52-1.04) mg/dL Glucose (74-99) mg/dL POC Glucose (mg/dL) 137 H 149 H (75-99) mg/dL Hemoglobin A1c (4.0-6.0) % Calcium (8.4-10.2) mg/dL Phosphorus (2.5-4.5) mg/dL Magnesium (1.6-2.3) mg/dL Ferritin (10.0-291.0) ng/mL AST (14-36) U/L Lactate Dehydrogenase (313-618) U/L C-Reactive Protein (<1.0) mg/dL Total Protein (6.3-8.2) g/dL Albumin (3.5-5.0) g/dL Procalcitonin (0.02-0.09) ng/mL 09/12/20 09/12/20 09/12/20 Range/Units 07:56 09:02 10:09 D-Dimer (<0.60) mg/L FEU ABG pH (7.35-7.45) ABG pCO2 (35-45) mmHg ABG pO2 (83-108) mmHg ABG HCO3 (21-25) mmol/L ABG Total CO2 (19-24) mmol/L ABG O2 Saturation (94-97) % Sodium (137-145) mmol/L Chloride (98-107) mmol/L Carbon Dioxide (22-30) mmol/L Creatinine (0.52-1.04) mg/dL Glucose (74-99) mg/dL POC Glucose (mg/dL) 142 H 200 H 239 H (75-99) mg/dL Hemoglobin A1c (4.0-6.0) % Calcium (8.4-10.2) mg/dL Phosphorus (2.5-4.5) mg/dL Magnesium (1.6-2.3) mg/dL Ferritin (10.0-291.0) ng/mL AST (14-36) U/L Lactate Dehydrogenase (313-618) U/L C-Reactive Protein (<1.0) mg/dL Total Protein (6.3-8.2) g/dL Albumin (3.5-5.0) g/dL Procalcitonin (0.02-0.09) ng/mL 09/12/20 09/12/20 Range/Units 10:47 10:50 D-Dimer (<0.60) mg/L FEU ABG pH (7.35-7.45) ABG pCO2 (35-45) mmHg ABG pO2 74 L (83-108) mmHg ABG HCO3 (21-25) mmol/L ABG Total CO2 (19-24) mmol/L ABG O2 Saturation (94-97) % Sodium (137-145) mmol/L Chloride (98-107) mmol/L Carbon Dioxide (22-30) mmol/L Creatinine (0.52-1.04) mg/dL Glucose (74-99) mg/dL POC Glucose (mg/dL) 212 H (75-99) mg/dL Hemoglobin A1c (4.0-6.0) % Calcium (8.4-10.2) mg/dL Phosphorus (2.5-4.5) mg/dL Magnesium (1.6-2.3) mg/dL Ferritin (10.0-291.0) ng/mL AST (14-36) U/L Lactate Dehydrogenase (313-618) U/L C-Reactive Protein (<1.0) mg/dL Total Protein (6.3-8.2) g/dL Albumin (3.5-5.0) g/dL Procalcitonin (0.02-0.09) ng/mL Microbiology - Last 24 Hours (Table) 09/11/20 Unknown Gram Stain - Preliminary Sputum Sputum Culture - Preliminary Assessment and Plan Plan: Assessment: #1. Acute hypoxic respiratory failure secondary to COVID-19 pneumonia, transferred to the intensive care unit on 09/11/2020 and intubated and placed on mechanical ventilator on 09/11/2020. Patient received 1 dose of Remdesivir on 09/11/2020, however he says of quick progression of her hypoxic respiratory failure she received Tocilizumab 800 mg on 09/11/2020 #2. Acute diabetic ketoacidosis #3. Acute anion-gap metabolic acidosis related to acute DKA, improving #4. Increased d-dimer, related to COVID-19 pneumonia, currently on Lovenox 50 mg twice daily #5. Possible sepsis with increased pro-calcitonin suggesting presence of bacterial infection, cultures have been sent, patient has been started on Zosyn for empiric antibiotics coverage #6. Diabetes mellitus type 2 #7. Morbid obesity with BMI 45.3 kg/m #8. Nonsmoker Plan: Continue current dose Decadron We'll give the patient additional 2 L in fluid boluses We'll give the patient 1 dose of IV Lasix Continue sedation continue assist control mode of ventilation, Continue proning the patient with a target of 16 hours daily, so far she is tolerating quite well, and oxygenation seems to be improving in prone position, dropped FiO2 down to 80% and PEEP down to 18 Lovenox has been increased to 50 mg twice daily Obtain lower extremity Dopplers to rule out possibility of DVT Anticipate starting tube feedings today Continue insulin infusion Discontinue bicarbonate effusion Continue maintenance IV fluids at 100 ML per hour Pro-calcitonin level has increased to 3.53 Blood cultures have been sent, sputum culture has been sent, send UA and culture Add Zosyn for empiric antibiotic coverage We'll continue to closely follow in the intensive care unit Overall prognosis is guarded I performed a history & physical examination of the patient and discussed their management with my nurse practitioner, Renetta Moreira. I reviewed the nurse practitioner's note and agree with the documented findings and plan of care. Lung sounds are positive for diminished breath sounds. The findings and the impression was discussed with the patient. I attest to the documentation by the nurse practitioner. Time with Patient: Greater than 30
[2020-09-12 12:03] LABS: Glucose,Whole Blood 198 mg/dL (75-99)
[2020-09-12 12:17] LABS: Ferritin 1220.3 ng/mL (10.0-291.0)
[2020-09-12] MEDS: PIPERACILLIN-TAZOBACTAM 3.375 GM in SODIUM CHLORIDE 0.9% 100 ML IVPB SCH ×2 (12:32→20:41)
[2020-09-12] MEDS: ASCORBIC ACID 500 MG TAB PO SCH ×2 (12:47→20:40)
[2020-09-12] MEDS: ZINC SULFATE 220 MG CAP PO SCH (12:47)
[2020-09-12] MEDS: CHOLECALCIFEROL 25 MCG (1000 IU) TABLET PO SCH (12:47)
[2020-09-12 13:14] LABS: Glucose,Whole Blood 188 mg/dL (75-99)
--- NOTE | 2020-09-12 13:41 | XR ---
EXAMINATION TYPE: XR chest 1V portable DATE OF EXAM: 09/12/2020 COMPARISON: 09/11/2020 INDICATION: Difficulty breathing TECHNIQUE: Single frontal view of the chest is obtained. FINDINGS: The heart size is mildly prominent. The pulmonary vasculature is prominent. Diffuse patchy infiltrates are present bilaterally. Findings are improved especially to the left uppe r lobe. Correlate for ARDS and atypical pneumonia. Endotracheal tube tip is above the ida. Nasogastric tube transverses the thorax. IMPRESSION: 1. Improving patchy bilateral lung infiltrates. 2. Lines and catheters discussed above
[2020-09-12] MEDS: METOPROLOL TARTRATE 25 MG TAB PO SCH ×2 (13:49→20:39)
[2020-09-12 14:02] LABS: Glucose,Whole Blood 203 mg/dL (75-99)
--- NOTE | 2020-09-12 14:22 | US ---
EXAMINATION TYPE: US venous doppler duplex LE DATE OF EXAM: 09/12/2020 1:59 PM COMPARISON: NONE CLINICAL HISTORY: rule out DVt. Covid SIDE PERFORMED: Bilateral TECHNIQUE: The lower extremity deep venous system is examined utilizing real time linear array sonog mia with graded compression, doppler sonography and color-flow sonography. VESSELS IMAGED: Common Femoral Vein Deep Femoral Vein Greater Saphenous Vein * Femoral Vein Popliteal Vein Small Saphenous Vein * Proximal Calf Veins (* superficial vessels) ICU, vented pt, morbidly obese pt Right Leg: Only right MID and DISTAL FV visualized and appeared negative for DVT, right CFV, GSV, Pr ox FV, and Deep FV not visualized due to IV site in groin and unable to visualize popliteal veins due to large pt body habitus Left Leg: Negative for DVT IMPRESSION: 1. Left lower extremity ultrasound negative for deep venous thrombosis. 2. Right lower extremity ultrasound extremely limited. Deep venous thrombosis identified within the s mall sections visualized.
[2020-09-12 15:28] LABS: Glucose,Whole Blood 191 mg/dL (75-99)
--- NOTE | 2020-09-12 16:00 | P.PN ---
Subjective Progress Note Date: 09/12/20 35 years old female patient of Dr. Chou with past medical history of type 2 diabetes comes in with acute shortness of breath associated with high light sugars. Patient on admission was found to have a fever of 101.5 pulse rate 125 respiratory rate 20. Blood pressure 132/106. On chest x-ray obtained in the ER suggestive of bilateral infiltrates concerning for call with pneumonia. COVID PCR was positive. On admissions patient had an ABG with a pH of 7.14 pCO2 of 20, pO2 of 59, bicarb of 7. Patient's blood sugar on admission was 424 on assessment today patient's blood work patient had a sodium 135 potassium 5.4 chloride 123 bicarb less than 5 and creatinine 0.73. D-dimer was elevated on admission patient 9 28 patient given 1 L of IV fluids followed by normal saline running at 200 mL/h. Patient was positive for acetone on admission. She will anion gap closed and was switched to D5NS. Insulin drip was continued during the night and was switched to patient's home medication t his morning. One dose of remdesiver was ordered. Apparently around noon, A- team was called on the patient secondary to hypoxia patient's oxygen saturation dropped to the 70s and 80s on 100% nonrebreather. Patient was switched to BiPAP on 18/12 and is doing better o FiO2 of 80%. ABG was obtained and ph was 7. 14 pCO2 of 28 bicarb of 7 pO2 of 17. Patient noted to have uncompensated metabolic acidosis with compensated respiratory alkalosis. Stat dose of 1 amp bicarb was given and followed by sodium bicarbonate drip. Insulin drip restarted. Patient's initiated on dexamethasone 6 mg IV twice a day. Potassium phosphate ordered as phosphorus is low. Patient's repeat blood gases suggest a pH of 7.25, CO2 32 pO2 of 72 bicarb 14. I will not normal saline at 100 mL/h as patient's anion gap has increased. Patient given 1 dose of 2 mg of morphine with improvement in respiratory rate. One dose of Ativan 0.5 mg was given. Xanax 0.25 twice a day along with Ativan 0.5 IV every 6 hours ordered for the patient. Vitals were evaluated patient pulse 129 [id number]. She was moved to the ICU. Precedex drip was initiated. Lopressor was initiated at 25 twice a day. Metoprolol tartrate 5 mg IV every 6 hours. Systolic blood pressure more than 160. Started chest x-ray was obtained and suggest stable bilateral consolidation suggestive of COVID-19 pneumonia. 09/12 patient is seen in the ICU is currently mechanically ventilated and sedated on vent settings of respiratory rate 36, tidal volume 375 FiO2 80% PEEP of 18.. Vital signs reviewed patient had a temp of 100.4 pulse 150 respiratory rate 36 oxygen saturation 95% on 80% on fio2 .'s labs are reviewed which patient had a d-dimer 1.84 that is increased to 14.3. Arterial Blood gas suggest ph 7.35, CO2 40, po2 62, . Her BMP suggest a sodium 135 potassium 3.7 chloride 112 bicarb 21 creatinine 1.57 for calcitonin is 3.5 CRP is increased from 8.78.2 LDH is increased to 2614. Patient remains on Pneumovax, propofol drip. Lovenox increased to 50 subcu twice a day. Patient received 2 L of IV fluids. Continue IV fluids at 100 mL/h. Bicarb drip discontinued patient initiated on Zosyn 3.375 every 8 hours. Continue insulin drip at 4 units per hour. Patient is currently in prone positioning ROS could not be obtained as patient is intubated Objective - Vital Signs Vital signs: Vital Signs Temp 99.3 F 09/12/20 12:00 Pulse 113 H 09/12/20 15:00 Resp 36 H 09/12/20 15:00 BP 144/72 09/11/20 16:30 Pulse Ox 94 L 09/12/20 15:00 Intake & Output 09/11/20 09/12/20 09/12/20 18:59 06:59 18:59 Intake Total 3712.367 3167.001 5445.835 Output Total 1500 785 65 Balance 2212.367 2382.001 5380.835 Weight 100.244 kg 101.8 kg 101.8 kg Intake: IV 3650 2800 2200 Dextrose 5% in Water 1, 750 1250 300 000 ml @ 100 mls/hr IV . [id number] [facility] with Sodium Bicarb (1 Meq/ml) 150 ml Rx#:[id number] Magnesium Sulfate-D5w Pmx 100 1 gm In Dextrose/Water 1 100ml.bag @ 100 mls/hr IVPB Q1H [facility] Rx#: [id number] Potassium Phosphate 10 500 250 mmol In Sodium Chloride 0 .9% 250 ml @ 125 mls/hr IV Q2H [facility] Rx#:[id number] Sodium Chloride 0.9% 1, 300 1200 900 000 ml @ 100 mls/hr IV . Q10H [facility] Rx#:[id number] Sodium Chloride 0.9% 1, 2000 1000 000 ml @ 999 mls/hr IV . Q1H1M [facility] Rx#:[id number] Tocilizumab 800 mg In 100 Sodium Chloride 0.9% 60 ml @ 100 mls/hr IV ONCE ONE Rx#:[id number] Intake, IV Titration 62.367 636.189 7930.835 Amount Cisatracurium 200 mg In 10.627 Sodium Chloride 0.9% 180 ml @ 1 MCG/KG/MIN 6.015 mls/hr IV .Q24H [facility] Rx#: [id number] Insulin Regular 100 unit 49.299 In Sodium Chloride 0.9% 100 ml @ 0.1 UNITS/KG/HR 10.125 mls/hr IV .Q9H59M [facility] Rx#:[id number] Insulin Regular 100 unit 12.667 156.775 17.067 In Sodium Chloride 0.9% 100 ml @ 0.1 UNITS/KG/HR 10.125 mls/hr IV .Q9H59M [facility] Rx#:[id number] Insulin Regular 100 unit 28.768 In Sodium Chloride 0.9% 100 ml @ Per Protocol IV .Q0M [facility] Rx#:[id number] Sodium Chloride 0.9% 2, 2000 000 ml @ 999 mls/hr IV . Q2H1M [facility] Rx#:[id number] Sodium Chloride 0.9% 2, 1000 000 ml @ 999 mls/hr IV . Q2H1M [facility] Rx#:[id number] propofoL 1,000 mg In 0.401 199.599 200 Empty Bag 1 bag @ Titrate IV .Q0M [facility] Rx#: [id number] Output: Gastric Drainage 600 Urine 1500 185 65 Other: Voiding Method Indwelling Catheter Indwelling Catheter Indwelling Catheter ABP, PAP, CO, CI - Last Documented Arterial Blood Pressure 107/68 - Exam Physical exam restricted due to COVID 19 - Constitutional General appearance: cooperative, intubated and sedated, in prone positioning obese - Neck Neck: normal ROM - Respiratory Respiratory: bilateral decreased air entry. Minimal chest retractions noted - Cardiovascular Rhythm sinus tachycardia Heart sounds: normal: S1, S2 - Gastrointestinal General gastrointestinal: Nondistended - Integumentary Integumentary: no rash - Neurologic Neurologic: No gross motor deficit - Musculoskeletal Musculoskeletal: Sedated - Psychiatric Psychiatric: Sedated - Labs CBC & Chem 7: 09/12/20 04:15 09/12/20 04:15 Labs: Abnormal Lab Results - Last 24 Hours (Table) 09/11/20 09/11/20 09/11/20 Range/Units 12:56 12:56 16:31 D-Dimer (<0.60) mg/L FEU ABG pH (7.35-7.45) ABG pO2 (83-108) mmHg ABG HCO3 (21-25) mmol/L ABG Total CO2 (19-24) mmol/L ABG O2 Saturation (94-97) % Chloride (98-107) mmol/L Carbon Dioxide (22-30) mmol/L Creatinine (0.52-1.04) mg/dL Glucose (74-99) mg/dL POC Glucose (mg/dL) 380 H (75-99) mg/dL Calcium (8.4-10.2) mg/dL Phosphorus (2.5-4.5) mg/dL Magnesium (1.6-2.3) mg/dL Ferritin 1035.5 H (10.0-291.0) ng/mL Lactate Dehydrogenase (313-618) U/L C-Reactive Protein (<1.0) mg/dL Procalcitonin 0.51 H (0.02-0.09) ng/mL 09/11/20 09/11/20 09/11/20 Range/Units 16:51 16:51 16:55 D-Dimer (<0.60) mg/L FEU ABG pH 7.05 L* (7.35-7.45) ABG pO2 59 L* (83-108) mmHg ABG HCO3 12 L (21-25) mmol/L ABG Total CO2 13 L (19-24) mmol/L ABG O2 Saturation 83.3 L (94-97) % Chloride (98-107) mmol/L Carbon Dioxide (22-30) mmol/L Creatinine (0.52-1.04) mg/dL Glucose (74-99) mg/dL POC Glucose (mg/dL) (75-99) mg/dL Calcium (8.4-10.2) mg/dL Phosphorus (2.5-4.5) mg/dL Magnesium 1.5 L (1.6-2.3) mg/dL Ferritin 1398.9 H (10.0-291.0) ng/mL Lactate Dehydrogenase (313-618) U/L C-Reactive Protein (<1.0) mg/dL Procalcitonin 3.53 H (0.02-0.09) ng/mL 09/11/20 09/11/20 09/11/20 Range/Units 16:58 18:05 19:34 D-Dimer (<0.60) mg/L FEU ABG pH 7.22 L (7.35-7.45) ABG pO2 47 L* (83-108) mmHg ABG HCO3 17 L (21-25) mmol/L ABG Total CO2 18 L (19-24) mmol/L ABG O2 Saturation 81.0 L (94-97) % Chloride (98-107) mmol/L Carbon Dioxide (22-30) mmol/L Creatinine (0.52-1.04) mg/dL Glucose (74-99) mg/dL POC Glucose (mg/dL) 384 H 355 H (75-99) mg/dL Calcium (8.4-10.2) mg/dL Phosphorus (2.5-4.5) mg/dL Magnesium (1.6-2.3) mg/dL Ferritin (10.0-291.0) ng/mL Lactate Dehydrogenase (313-618) U/L C-Reactive Protein (<1.0) mg/dL Procalcitonin (0.02-0.09) ng/mL 09/11/20 09/11/20 09/11/20 Range/Units 19:55 20:56 22:06 D-Dimer (<0.60) mg/L FEU ABG pH (7.35-7.45) ABG pO2 (83-108) mmHg ABG HCO3 (21-25) mmol/L ABG Total CO2 (19-24) mmol/L ABG O2 Saturation (94-97) % Chloride (98-107) mmol/L Carbon Dioxide (22-30) mmol/L Creatinine (0.52-1.04) mg/dL Glucose (74-99) mg/dL POC Glucose (mg/dL) 320 H 324 H 310 H (75-99) mg/dL Calcium (8.4-10.2) mg/dL Phosphorus (2.5-4.5) mg/dL Magnesium (1.6-2.3) mg/dL Ferritin (10.0-291.0) ng/mL Lactate Dehydrogenase (313-618) U/L C-Reactive Protein (<1.0) mg/dL Procalcitonin (0.02-0.09) ng/mL 09/11/20 09/12/20 09/12/20 Range/Units 23:29 00:00 00:00 D-Dimer (<0.60) mg/L FEU ABG pH (7.35-7.45) ABG pO2 (83-108) mmHg ABG HCO3 (21-25) mmol/L ABG Total CO2 (19-24) mmol/L ABG O2 Saturation (94-97) % Chloride (98-107) mmol/L Carbon Dioxide (22-30) mmol/L Creatinine 1.09 H (0.52-1.04) mg/dL Glucose (74-99) mg/dL POC Glucose (mg/dL) 310 H (75-99) mg/dL Calcium (8.4-10.2) mg/dL Phosphorus 2.4 L (2.5-4.5) mg/dL Magnesium (1.6-2.3) mg/dL Ferritin (10.0-291.0) ng/mL Lactate Dehydrogenase (313-618) U/L C-Reactive Protein (<1.0) mg/dL Procalcitonin (0.02-0.09) ng/mL 09/12/20 09/12/20 09/12/20 Range/Units 01:00 02:49 04:15 D-Dimer 14.31 H (<0.60) mg/L FEU ABG pH (7.35-7.45) ABG pO2 (83-108) mmHg ABG HCO3 (21-25) mmol/L ABG Total CO2 (19-24) mmol/L ABG O2 Saturation (94-97) % Chloride (98-107) mmol/L Carbon Dioxide (22-30) mmol/L Creatinine (0.52-1.04) mg/dL Glucose (74-99) mg/dL POC Glucose (mg/dL) 261 H 188 H (75-99) mg/dL Calcium (8.4-10.2) mg/dL Phosphorus (2.5-4.5) mg/dL Magnesium (1.6-2.3) mg/dL Ferritin (10.0-291.0) ng/mL Lactate Dehydrogenase (313-618) U/L C-Reactive Protein (<1.0) mg/dL Procalcitonin (0.02-0.09) ng/mL 09/12/20 09/12/20 09/12/20 Range/Units 04:15 04:21 05:02 D-Dimer (<0.60) mg/L FEU ABG pH (7.35-7.45) ABG pO2 (83-108) mmHg ABG HCO3 (21-25) mmol/L ABG Total CO2 (19-24) mmol/L ABG O2 Saturation (94-97) % Chloride 112 H (98-107) mmol/L Carbon Dioxide 21 L (22-30) mmol/L Creatinine 1.57 H (0.52-1.04) mg/dL Glucose 188 H (74-99) mg/dL POC Glucose (mg/dL) 159 H 165 H (75-99) mg/dL Calcium 6.6 L (8.4-10.2) mg/dL Phosphorus (2.5-4.5) mg/dL Magnesium (1.6-2.3) mg/dL Ferritin 1220.3 H (10.0-291.0) ng/mL Lactate Dehydrogenase 2618 H (313-618) U/L C-Reactive Protein 18.2 H (<1.0) mg/dL Procalcitonin (0.02-0.09) ng/mL 09/12/20 09/12/20 09/12/20 Range/Units 05:57 06:05 07:21 D-Dimer (<0.60) mg/L FEU ABG pH (7.35-7.45) ABG pO2 62 L (83-108) mmHg ABG HCO3 (21-25) mmol/L ABG Total CO2 (19-24) mmol/L ABG O2 Saturation 92.5 L (94-97) % Chloride (98-107) mmol/L Carbon Dioxide (22-30) mmol/L Creatinine (0.52-1.04) mg/dL Glucose (74-99) mg/dL POC Glucose (mg/dL) 137 H 149 H (75-99) mg/dL Calcium (8.4-10.2) mg/dL Phosphorus (2.5-4.5) mg/dL Magnesium (1.6-2.3) mg/dL Ferritin (10.0-291.0) ng/mL Lactate Dehydrogenase (313-618) U/L C-Reactive Protein (<1.0) mg/dL Procalcitonin (0.02-0.09) ng/mL 09/12/20 09/12/20 09/12/20 Range/Units 07:56 09:02 10:09 D-Dimer (<0.60) mg/L FEU ABG pH (7.35-7.45) ABG pO2 (83-108) mmHg ABG HCO3 (21-25) mmol/L ABG Total CO2 (19-24) mmol/L ABG O2 Saturation (94-97) % Chloride (98-107) mmol/L Carbon Dioxide (22-30) mmol/L Creatinine (0.52-1.04) mg/dL Glucose (74-99) mg/dL POC Glucose (mg/dL) 142 H 200 H 239 H (75-99) mg/dL Calcium (8.4-10.2) mg/dL Phosphorus (2.5-4.5) mg/dL Magnesium (1.6-2.3) mg/dL Ferritin (10.0-291.0) ng/mL Lactate Dehydrogenase (313-618) U/L C-Reactive Protein (<1.0) mg/dL Procalcitonin (0.02-0.09) ng/mL 09/12/20 09/12/20 09/12/20 Range/Units 10:47 10:50 12:02 D-Dimer (<0.60) mg/L FEU ABG pH (7.35-7.45) ABG pO2 74 L (83-108) mmHg ABG HCO3 (21-25) mmol/L ABG Total CO2 (19-24) mmol/L ABG O2 Saturation (94-97) % Chloride (98-107) mmol/L Carbon Dioxide (22-30) mmol/L Creatinine (0.52-1.04) mg/dL Glucose (74-99) mg/dL POC Glucose (mg/dL) 212 H 198 H (75-99) mg/dL Calcium (8.4-10.2) mg/dL Phosphorus (2.5-4.5) mg/dL Magnesium (1.6-2.3) mg/dL Ferritin (10.0-291.0) ng/mL Lactate Dehydrogenase (313-618) U/L C-Reactive Protein (<1.0) mg/dL Procalcitonin (0.02-0.09) ng/mL 09/12/20 09/12/20 09/12/20 Range/Units 13:13 14:00 15:26 D-Dimer (<0.60) mg/L FEU ABG pH (7.35-7.45) ABG pO2 (83-108) mmHg ABG HCO3 (21-25) mmol/L ABG Total CO2 (19-24) mmol/L ABG O2 Saturation (94-97) % Chloride (98-107) mmol/L Carbon Dioxide (22-30) mmol/L Creatinine (0.52-1.04) mg/dL Glucose (74-99) mg/dL POC Glucose (mg/dL) 188 H 203 H 191 H (75-99) mg/dL Calcium (8.4-10.2) mg/dL Phosphorus (2.5-4.5) mg/dL Magnesium (1.6-2.3) mg/dL Ferritin (10.0-291.0) ng/mL Lactate Dehydrogenase (313-618) U/L C-Reactive Protein (<1.0) mg/dL Procalcitonin (0.02-0.09) ng/mL Microbiology - Last 24 Hours (Table) 09/11/20 Unknown Gram Stain - Preliminary Sputum Sputum Culture - Preliminary Assessment and Plan Plan: #1 acute diabetes ketoacidosis secondary to COVID pneumonia. Status post 3 L IV bolus. Anion gap closed . Continue insulin drip hold metformin and Januvia. Continue monitoring electrolytes. Normal saline to be continued at 100 mL/h with bicarbonate drip per pulmonary. ABGs improved after placing patient on ventilator #2 acute hypoxic respiratory failure secondary to COVID pneumonia with possible bacterial pneumonia. Intubated on 09/11 Dexamethasone 6 mg IV twice a day continue vitamin C, vitamin D and zinc. Pro-air inhaler every 6 hours. Pulmicort twice daily. Status post Remdesivir and 1 dose of Tocilizumab. Zosyn 3.375 every 8 #3 acute metabolic acidosis with respiratory alkalosis secondary to DKA. Continue normal saline at 100 mL per hour in addition to D5W with bicarb to help with anion gap. Repeat ABG as needed #4 sepsis secondary to COVID 19 pneumonia pro-calcitonin high cannot exclude bacterial pneumonia. Chest x-ray suggestive of COVID-19 pneumonia. #5 type 2 uncontrolled diabetes A1c of 13.6 on metformin and Januvia as outpati ent. Metformin and Januvia on hold continue insulin drip for now #6 anxiety status post Ativan with minimal improvement currently on Precedex drip #7 hypophosphatemia status post phosphate replacement #8 hyperkalemia secondary to DKA. Continue to watch for hypokalemia. will add potassium to patient normal saline #9 sinus tachycardia secondary to volume deficiency. Continue normal saline at 100 mL per hour. #10 hypertension metoprolol initiated with the twice a day. #9 DVT prophylaxis Lovenox 40 subcu daily #10 GI prophylaxis pantoprazole 40 daily #11 CODE STATUS full code
[2020-09-12] MEDS ORDERED: FUROSEMIDE 10 MG/ML 10 ML VIAL IV STA (16:05)
[2020-09-12 16:18] LABS: Glucose,Whole Blood 175 mg/dL (75-99)
[2020-09-12 17:30] LABS: Glucose,Whole Blood 174 mg/dL (75-99)
[2020-09-12] MEDS ORDERED: POTASSIUM BICARBONATE/CIT AC 20 MEQ TABLET.EFF PO ONE (17:46)
[2020-09-12] MEDS: CISATRACURIUM 200 MG in SODIUM CHLORIDE 0.9% 180 ML IV SCH (18:49)
[2020-09-12 18:55] LABS: Glucose,Whole Blood 192 mg/dL (75-99)
[2020-09-12 21:11] LABS: Glucose,Whole Blood 170 mg/dL (75-99)
[2020-09-12 23:18] LABS: Glucose,Whole Blood 134 mg/dL (75-99)
[2020-09-13 03:37] LABS: Glucose,Whole Blood 268 mg/dL (75-99)
[2020-09-13] MEDS: PIPERACILLIN-TAZOBACTAM 3.375 GM in SODIUM CHLORIDE 0.9% 100 ML IVPB SCH (03:47)
[2020-09-13 04:59] LABS: Basophils % (A) 0 %; Eosinophils % (A) 0 %; HCT 38.6 % (34.0-46.0); HGB 13.2 gm/dL (11.4-16.0); Lymphocytes # (A) 1.2 k/uL (1.0-4.8); Lymphocytes % (A) 11 %; MCHC 34.1 g/dL (31.0-37.0); MCV 85.2 fL (80.0-100.0); Mean Platelet Volume 9.3; Monocytes # (A) 0.5 k/uL (0-1.0); Monocytes % (A) 5 %; Neutrophils # (A) 9.1 k/uL (1.3-7.7); Neutrophils % (A) 82 %; Platelet Count 203 k/uL (150-450); RBC 4.53 m/uL (3.80-5.40); RDW 13.9 % (11.5-15.5); WBC 11.1 k/uL (3.8-10.6)
[2020-09-13 04:59] LABS: Glucose,Whole Blood 256 mg/dL (75-99)
[2020-09-13 05:12] LABS: ABG Base Excess -13.3 mmol/L; ABG HCO3 15 mmol/L (21-25); ABG Oxygen Saturation 95.3 % (94-97); ABG PCO2 39 mmHg (35-45); ABG PO2 82 mmHg (83-108); ABG TCO2 16 mmol/L (19-24); Allen Test Performed? Yes
[2020-09-13 05:14] LABS: ABG PH 7.19 (7.35-7.45)
[2020-09-13 05:33] LABS: Albumin 1.9 g/dL (3.5-5.0); Phosphorus 3.7 mg/dL (2.5-4.5); Total Bilirubin 0.3 mg/dL (0.2-1.3); Total Protein 4.2 g/dL (6.3-8.2)
[2020-09-13] MEDS ORDERED: SODIUM BICARB 8.4% 50 ML SYR (1 MEQ/ML) IV STA ×2 (06:18→06:35)
[2020-09-13 06:26] LABS: Glucose,Whole Blood 242 mg/dL (75-99)
[2020-09-13] MEDS: DEXTROSE 5% IN WATER 1,000 ML with SODIUM BICARB (1 MEQ/ML) 150 ML IV SCH ×2 (06:45→18:01)
[2020-09-13] MEDS ORDERED: CALCIUM GLUCONATE 1 GM in SODIUM CHLORIDE 0.9% 100 ML IVPB ONE (06:45)
[2020-09-13] MEDS: SYMBICORT 160-4.5 MCG INHALER INHALATION SCH ×2 (07:19→20:16)
[2020-09-13] MEDS: ALBUTEROL HFA INHALER INHALATION SCH ×4 (07:19→20:16)
[2020-09-13 07:48] LABS: Glucose,Whole Blood 255 mg/dL (75-99)
[2020-09-13 08:48] LABS: Glucose,Whole Blood 166 mg/dL (75-99)
[2020-09-13] MEDS: INSULIN REGULAR 100 UNIT in SODIUM CHLORIDE 0.9% 100 ML IV SCH ×2 (08:51→17:09)
[2020-09-13] MEDS: DEXAMETHASONE SOD PHOSPHATE 10 MG/ML 1 ML VIAL IV SCH ×2 (08:54→20:00)
[2020-09-13] MEDS: ENOXAPARIN 60 MG/0.6 ML SYRINGE SQ SCH (08:54)
[2020-09-13] MEDS: CHLORHEXIDINE GLUCONATE 15 ML CUP MUCOUS MEM SCH ×2 (08:55→20:00)
[2020-09-13] MEDS: ASCORBIC ACID 500 MG TAB PO SCH ×2 (08:55→20:00)
[2020-09-13] MEDS: PANTOPRAZOLE 40 MG/10 ML VIAL IVP SCH (08:55)
[2020-09-13] MEDS: CHOLECALCIFEROL 25 MCG (1000 IU) TABLET PO SCH (08:55)
[2020-09-13] MEDS: ZINC SULFATE 220 MG CAP PO SCH (08:55)
[2020-09-13] MEDS: METOPROLOL TARTRATE 25 MG TAB PO SCH ×2 (08:55→20:00)
[2020-09-13] MEDS ORDERED: SODIUM CHLORIDE 0.9% 1,000 ML IV ONE ×2 (09:42→10:06)
[2020-09-13 09:55] LABS: Glucose,Whole Blood 150 mg/dL (75-99)
[2020-09-13] MEDS ORDERED: FUROSEMIDE 10 MG/ML 10 ML VIAL IV STA (10:06)
[2020-09-13] MEDS: fentaNYL (PF). 1,000 MCG in SODIUM CHLORIDE 0.9% 80 ML IV SCH (10:15)
[2020-09-13 10:43] LABS: Glucose,Whole Blood 155 mg/dL (75-99)
--- NOTE | 2020-09-13 10:54 | P.NPCON ---
History of Present Illness - Reason for Consult acute renal failure - History of Present Illness Reason for consult: Acute kidney injury History of present illness: Patient is a 35-year-old female seen in consultation for acute kidney injury. Patient was diagnosed with coronavirus prior to admission. Patient came to the hospital with shortness of breath and weakness. She is currently being treated for DKA. She is on insulin drip. Currently intubated. Not on vasopressors. Urine output is low. She is maintained on bicarb drip running at 75 mL an hour. Bicarb level 13 this morning. Patient's baseline creatinine is near 1 and is up to 3.4 today. Patient was on metformin outpatient which is currently held. She is scheduled receive 1 L bolus of normal saline today. Vital signs are stable. HEENT: Intubated. Prone position. LUNGS: Breath sounds decreased. HEART: Rate and Rhythm are regular. ABDOMEN: Soft, obese. EXTREMITITES: Trace edema. Past Medical History Past Medical History: Diabetes Mellitus History of Any Multi-Drug Resistant Organisms: None Reported Past Surgical History: Section, Tubal Ligation Past Psychological History: No Psychological Hx Reported Smoking Status: Never smoker Past Alcohol Use History: Occasional Past Drug Use History: None Reported Medications and Allergies Home Medications Medication Instructions Recorded Confirmed Type metFORMIN HCL 1,000 mg PO BID 09/10/20 09/10/20 History sitaGLIPtin PHOSPHATE [Januvia] 100 mg PO DAILY 09/10/20 09/10/20 History Allergies Allergy/AdvReac Type Severity Reaction Status Date / Time No Known Allergies Allergy Verified 09/10/20 15:23 Physical Exam Vitals: Vital Signs Temp Pulse Resp BP Pulse Ox 09/13/20 09:00 112 H 36 H 140/73 96 09/13/20 08:00 98.4 F 114 H 36 H 140/73 96 09/13/20 07:00 121 H 36 H 140/73 92 L 09/13/20 06:00 120 H 36 H 94 L 09/13/20 05:00 98.5 F 109 H 36 H 95 09/13/20 04:00 101 H 35 H 97 09/13/20 03:00 105 H 36 H 98 09/13/20 02:00 102 H 35 H 96 09/13/20 01:00 98 36 H 95 09/13/20 00:00 98.6 F 96 36 H 98 09/12/20 23:00 104 H 36 H 95 09/12/20 22:00 101 H 36 H 94 L 09/12/20 21:00 116 H 36 H 93 L 09/12/20 20:00 98.5 F 105 H 36 H 93 L 09/12/20 19:00 116 H 36 H 93 L 09/12/20 18:00 106 H 36 H 94 L 09/12/20 17:00 117 H 36 H 140/73 93 L 09/12/20 16:00 100.0 F H 100 36 H 91 L 09/12/20 15:00 113 H 36 H 94 L 09/12/20 14:30 111 H 36 H 93 L 09/12/20 14:00 112 H 36 H 87 L 09/12/20 13:30 118 H 36 H 84 L 09/12/20 13:00 122 H 36 H 78 L 09/12/20 12:30 112 H 36 H 91 L 09/12/20 12:00 99.3 F 104 H 36 H 92 L 09/12/20 11:00 106 H 36 H 93 L Intake and Output 09/12/20 09/13/20 09/13/20 22:59 06:59 14:59 Intake Total 2197.906 1034.882 602.941 Output Total 25 60 10 Balance 2172.906 974.882 592.941 Intake: IV 1800 700 9 Pressure Bag 9 Sodium Chloride 0.9% 1, 800 700 0 000 ml @ 100 mls/hr IV . Q10H [facility] Rx#:[id number] Sodium Chloride 0.9% 1, 1000 000 ml @ 999 mls/hr IV . Q1H1M [facility] Rx#:[id number] Intake, IV Titration 397.906 334.882 533.941 Amount Calcium Gluconate 1 gm In 100 Sodium Chloride 0.9% 100 ml @ 100 mls/hr IVPB ONCE [facility] Rx#:[id number] Cisatracurium 200 mg In 59.047 79.298 Sodium Chloride 0.9% 180 ml @ 1 MCG/KG/MIN 6.015 mls/hr IV .Q24H [facility] Rx#: [id number] Dextrose 5% in Water 1, 225 000 ml @ 75 mls/hr IV . [id number] [facility] with Sodium Bicarb (1 Meq/ml) 150 ml Rx#:[id number] Insulin Regular 100 unit 50.904 56.089 29.643 In Sodium Chloride 0.9% 100 ml @ Per Protocol IV .Q0M [facility] Rx#:[id number] propofoL 1,000 mg In 287.955 278.793 100 Empty Bag 1 bag @ Titrate IV .Q0M [facility] Rx#: [id number] Other 60 Output: Urine 25 60 10 Other: Voiding Method Indwelling Catheter Indwelling Catheter Indwelling Catheter ABP, PAP, CO, CI - Last 8 Hours Arterial Blood Pressure 164/80 Arterial Blood Pressure 133/69 Arterial Blood Pressure 165/82 Arterial Blood Pressure 157/81 Arterial Blood Pressure 159/72 Arterial Blood Pressure 141/63 Arterial Blood Pressure 151/70 Results - Lab Results Most recent lab results ABG pH 7.19 (7.35-7.45) L* 09/13/20 05:07 ABG pCO2 39 mmHg (35-45) 09/13/20 05:07 ABG pO2 82 mmHg (83-108) L 09/13/20 05:07 ABG HCO3 15 mmol/L (21-25) L 09/13/20 05:07 ABG O2 Saturation 95.3 % (94-97) 09/13/20 05:07 Calcium 6.0 mg/dL (8.4-10.2) L* 09/13/20 04:10 Phosphorus 3.7 mg/dL (2.5-4.5) 09/13/20 04:10 Magnesium 2.1 mg/dL (1.6-2.3) 09/12/20 04:15 09/13/20 04:10 09/13/20 04:10 Assessment and Plan Plan: Assessment: 1. Acute kidney injury secondary to ATN secondary to COVID-19 and DKA. Baseline creatinine is near 1 and is up to 3.4 today. Oliguric. 2. DKA maintained on insulin drip and IV fluids. 3. Acute hypoxic respiratory failure secondary to COVID-19 pneumonia. Intubated. 4. Metabolic acidosis secondary to acute kidney injury and DKA maintained on bicarb drip. 5. Hypocalcemia secondary to acute kidney injury. Corrected calcium 7.6. Replaced. Plan: Increase rate of bicarb drip to 100 mL an hour. Lasix 80 mg IV once today. Also receiving another liter normal saline bolus today. Repeat BMP this evening. Avoid nephrotoxins. Continue to assess daily for need for renal replacement therapy. Thank you for the consultation. I will continue to follow the patient with you during her hospital stay.
[2020-09-13 11:48] LABS: Glucose,Whole Blood 158 mg/dL (75-99)
[2020-09-13 13:02] LABS: Glucose,Whole Blood 162 mg/dL (75-99)
--- NOTE | 2020-09-13 13:09 | US ---
EXAMINATION TYPE: US kidneys/renal and bladder DATE OF EXAM: 09/13/2020 COMPARISON: NONE CLINICAL HISTORY: ilya. Intubated covid ICU pt, morbidly obese EXAM MEASUREMENTS: Right Kidney: 12.0 x 5.3 x 6.2 cm Left Kidney: 12.7 x 5.7 x 7.1cm very limited images due to obesity Right Kidney: No hydronephrosis or masses seen Left Kidney: No hydronephrosis or masses seen Bladder: not seen, patient has cameron Liver appears prominent. IMPRESSION: 1. Unremarkable ultrasound bilateral kidneys 2. Exam limited due to patient body habitus
--- NOTE | 2020-09-13 13:19 | XR ---
EXAMINATION TYPE: XR chest 1V portable DATE OF EXAM: 09/13/2020 COMPARISON: 09/12/2020 INDICATION: Tube placement TECHNIQUE: Single frontal view of the chest is obtained. Patient is rotated to the right. FINDINGS: The heart size is upper limits of normal. The pulmonary vasculature is normal. Diffuse increased lung markings are present bilaterally. Findings could be compatible with atypical p neumonia. Endotracheal tube tip is above the ida. Nasogastric tube transverses the thorax. IMPRESSION: 1. Bilateral lung infiltrates appear stable. 2. Lines and catheters discussed above
--- NOTE | 2020-09-13 13:33 | P.PN ---
Subjective Progress Note Date: 09/13/20 Principal diagnosis: DKA, COVID-19 pneumonia This is a 55-year-old -[place] female with history of type 2 diabetes, admitted today through the emergency room with a few days' history of increased shortness of breath, cough, fever, chest x-ray in the ER showed bilateral i nfiltrates consistent with COVID-19 pneumonia in the patient had positive PCR for COVID-19 infection. Patient had significantly abnormal labs on admission, she had an extremely low bicarb, extremely low pH, and marginal oxygenation at best. Patient was admitted to the regular medical floor, and I happened to be rounding on that same floor were and I was notified about this patient having worsening respiratory distress. Evaluated the patient, clearly the patient has DKA and she clearly has acute hypoxic respiratory failure secondary to COVID-19 pneumonia. As soon as I laid eyes on the patient, recommended immediate transfer to the ICU. Patient was placed on BiPAP however she did not tolerate BiPAP well, and when I went back to evaluate the patient in the ICU, she was basically deteriorating, and she was using her accessory muscles, patient was in severe respiratory distress. Hence I recommended immediate intubation and placement on mechanical ventilation. Chest x-ray continued to show bilateral infiltrates consistent with worsening COVID-19 pneumonia ABG showed a pO2 of 59 pCO2 of 42 pH of 7.05 and this was on the 100% FiO2 20 of PEEP tidal volume of 375 rate of 36. Patient will be given more bicarb and she is already on a bicarb drip. She is receiving insulin and she is also receiving IV fluids in the form of 0.9 normal saline. Sugars were 384. Inflammatory markers were added to be extremely high, LDH 2048, and C-reactive protein of 8.7. D-dimer was borderline elevated at 1.84. On 09/12/2020 patient seen in follow-up in the intensive care unit, yesterday she was emergently transferred to the intensive care and intubated and placed on mechanical ventilator. She remains intubated, sedated on mechanical ventilator, currently on assist control mode of ventilation with a rate 36, tidal vital 375, FiO2 100% and PEEP of 20. This might blood gas reveals pO2 of 62, pCO2 40, pH of 7.35 this was done on FiO2 of 80%, her peak airway pressure is 35, in her plateau pressure is around 32. she is sedated on Diprivan and 60 mics per kilo per minute, 0.9 normal saline at 100 ML per hour, insulin drip is at 4 units per hour, and she has 5% dextrose with 3 units of bicarbonate at 100 ML per hour. Today's labs have been reviewed, showing white blood cell count 10.3, hemoglobin of 14.4, d-dimer has increased to 14.31, and her Lovenox was adjusted and increased to 50 mg twice daily, sodium is 137, potassium is 3.7, chloride is 112, CO2 is up to 21, BUN of 16 creatinine is 1.57, LDH is 2618, CRP is 18.2. Pro-Calcitonin level came back elevated at 3.53, suggesting possibility of bacterial infection She received a liter bolus yesterday after intubation. We w ill give the patient additional fluid boluses today. Sputum culture has been sent and is pending, blood cultures have been sent. Patient has been placed in prone position at 8:00 last night, and her oxygenation seems to be improved and she satting 97% on 100% FiO2 and subsequently FiO2 was dropped down to 80%, and PEEP is down to 18. She remains in prone positioning, tolerating it well, she is having low-grade fevers, she is in sinus mechanism with tachycardic on the monitor, not requiring any vasopressor support right now, will start tube feedings today when the patient is placed back over in the supine position On 09/13/2020 patient seen in follow-up in intensive care unit, she remains proned, and at the time of our evaluation patient has already been prone for close to 16 hours and is about to be turned back on her spine. She tolerates prone position quite well, she remains intubated, paralyzed and sedated on mechanical ventilator, current vent settings are assist-control mode of ventilation with a rate of 36, tidal volume 375, FiO2 of 70% and PEEP of 18, this point his blood gases show pO2 of 82, pCO2 of 39, and pH of 7.19. She's currently on D5 W with 3 A of bicarbonate at 75 per hour, Diprivan is a 60 mics per kilo per minute, index is at 2 mics per kilo per minute, and insulin drip is at 6 units per hour, patient has not started tube feedings yet. She is in sinus mechanism, hemodynamically stable, not requiring any vasopressor support. Today's chest x-ray has been reviewed showing bilateral lung infiltrates that appear to be stable. Today's labs have been reviewed showing white blood cell count of 11.1, hemoglobin 13.2, d-dimer is pending, yesterday his d-dimer was 14.3, patient's Lovenox dose was increased to 50 mg every 24 hours. Her renal function continued to worsen, and her creatinine is up to 3.4 on today's labs, BUN is 24, were bicarb concentration is only 13 on today's labs, sodium is 137, potassium is 4.0. AST is up to 77, ALT and alk phos are within normal limits, yesterday set him inflammatory markers with showing up trending LDH at 2618, and CRP of 18.2. Her pro-calcitonin level was increased yesterday at 3.53 and we added empiric antibiotics in the form of Zosyn. Sputum culture has been sent and has shown no growth. Overnight patient remained oliguric, yesterday we gave her additional fluids, however did not improve her renal function and her kidney function continued to get worse. Nephrology consultation has been requested, she has only been producing urine in the order of 5-10 ML per hour, renal ultrasound has been obtained showing no evidence of hydronephrosis bilaterally. Objective - Vital Signs Vital signs: Vital Signs Temp 98.3 F 09/13/20 12:00 Pulse 91 09/13/20 13:00 Resp 36 H 09/13/20 13:00 BP 90/39 09/13/20 13:00 Pulse Ox 81 L 09/13/20 13:00 Intake & Output 09/12/20 09/13/20 09/13/20 18:59 06:59 18:59 Intake Total 6029.513 1244.866 0539.941 Output Total 65 85 25 Balance 5964.513 0086.938 3010.941 Weight 101.8 kg Intake: IV 2500 1100 21 Dextrose 5% in Water 1, 300 000 ml @ 100 mls/hr IV . [id number] [facility] with Sodium Bicarb (1 Meq/ml) 150 ml Rx#:[id number] Pressure Bag 21 Sodium Chloride 0.9% 1, 1200 1100 0 000 ml @ 100 mls/hr IV . Q10H [facility] Rx#:[id number] Sodium Chloride 0.9% 1, 1000 000 ml @ 999 mls/hr IV . Q1H1M [facility] Rx#:[id number] Intake, IV Titration 3529.513 109.573 0855.941 Amount Calcium Gluconate 1 gm In 100 Sodium Chloride 0.9% 100 ml @ 100 mls/hr IVPB ONCE ONE Rx#:[id number] Cisatracurium 200 mg In 77.846 79.298 Sodium Chloride 0.9% 180 ml @ 1 MCG/KG/MIN 6.015 mls/hr IV .Q24H [facility] Rx#: [id number] Dextrose 5% in Water 1, 600 000 ml @ 100 mls/hr IV . [id number] [facility] with Sodium Bicarb (1 Meq/ml) 150 ml Rx#:[id number] Insulin Regular 100 unit 17.067 In Sodium Chloride 0.9% 100 ml @ 0.1 UNITS/KG/HR 10.125 mls/hr IV .[id number] [facility] Rx#:[id number] Insulin Regular 100 unit 46.645 78.511 29.643 In Sodium Chloride 0.9% 100 ml @ Per Protocol IV .Q0M [facility] Rx#:[id number] Sodium Chloride 0.9% 1, 1000 000 ml @ 999 mls/hr IV . Q1H1M [facility] Rx#:[id number] Sodium Chloride 0.9% 2, 2000 000 ml @ 999 mls/hr IV . Q2H1M [facility] Rx#:[id number] Sodium Chloride 0.9% 2, 1000 000 ml @ 999 mls/hr IV . Q2H1M [facility] Rx#:[id number] propofoL 1,000 mg In 387.955 378.793 200 Empty Bag 1 bag @ Titrate IV .Q0M [facility] Rx#: [id number] Tube Feeding 81 Other 90 Output: Urine 65 85 25 Other: Voiding Method Indwelling Catheter Indwelling Catheter Indwelling Catheter ABP, PAP, CO, CI - Last Documented Arterial Blood Pressure 92/59 - Exam GENERAL EXAM: Sedated, intubated, -[place] female, in prone position, on assist control mode of ventilation with FiO2 70 percent and PEEP of 18, with a pulse ox of 97% comfortable in no apparent distress. HEAD: Normocephalic/atraumatic. EYES: Normal reaction of pupils, equal size. Conjunctiva pink, sclera white. NOSE: Clear with pink turbinates. THROAT: No erythema or exudates. NECK: No masses, no JVD, no thyroid enlargement, no adenopathy. CHEST: No chest wall deformity. Symmetrical expansion. LUNGS: Equal air entry with bilateral crackles CVS: Regular rate and rhythm, normal S1 and S2, no gallops, no murmurs, no rubs ABDOMEN: Soft, nontender. No hepatosplenomegaly, normal bowel sounds, no guarding or rigidity. EXTREMITIES: No clubbing, no edema, no cyanosis, 2+ pulses and upper and lower extremities. MUSCULOSKELETAL: Muscle strength and tone normal. SPINE: No scoliosis or deformity SKIN: No rashes CENTRAL NERVOUS SYSTEM: Sedated, intubated. No focal deficits, tone is normal in all 4 extremities. - Labs CBC & Chem 7: 09/13/20 04:10 09/13/20 04:10 Labs: Abnormal Lab Results - Last 24 Hours (Table) 09/12/20 09/12/20 09/12/20 Range/Units 14:00 15:26 16:16 WBC (3.8-10.6) k/uL Neutrophils # (1.3-7.7) k/uL ABG pH (7.35-7.45) ABG pO2 (83-108) mmHg ABG HCO3 (21-25) mmol/L ABG Total CO2 (19-24) mmol/L Chloride (98-107) mmol/L Carbon Dioxide (22-30) mmol/L BUN (7-17) mg/dL Creatinine (0.52-1.04) mg/dL Glucose (74-99) mg/dL POC Glucose (mg/dL) 203 H 191 H 175 H (75-99) mg/dL Calcium (8.4-10.2) mg/dL AST (14-36) U/L Total Protein (6.3-8.2) g/dL Albumin (3.5-5.0) g/dL 09/12/20 09/12/20 09/12/20 Range/Units 17:28 18:54 21:10 WBC (3.8-10.6) k/uL Neutrophils # (1.3-7.7) k/uL ABG pH (7.35-7.45) ABG pO2 (83-108) mmHg ABG HCO3 (21-25) mmol/L ABG Total CO2 (19-24) mmol/L Chloride (98-107) mmol/L Carbon Dioxide (22-30) mmol/L BUN (7-17) mg/dL Creatinine (0.52-1.04) mg/dL Glucose (74-99) mg/dL POC Glucose (mg/dL) 174 H 192 H 170 H (75-99) mg/dL Calcium (8.4-10.2) mg/dL AST (14-36) U/L Total Protein (6.3-8.2) g/dL Albumin (3.5-5.0) g/dL 09/12/20 09/13/20 09/13/20 Range/Units 23:16 03:35 04:10 WBC 11.1 H (3.8-10.6) k/uL Neutrophils # 9.1 H (1.3-7.7) k/uL ABG pH (7.35-7.45) ABG pO2 (83-108) mmHg ABG HCO3 (21-25) mmol/L ABG Total CO2 (19-24) mmol/L Chloride (98-107) mmol/L Carbon Dioxide (22-30) mmol/L BUN (7-17) mg/dL Creatinine (0.52-1.04) mg/dL Glucose (74-99) mg/dL POC Glucose (mg/dL) 134 H 268 H (75-99) mg/dL Calcium (8.4-10.2) mg/dL AST (14-36) U/L Total Protein (6.3-8.2) g/dL Albumin (3.5-5.0) g/dL 09/13/20 09/13/20 09/13/20 Range/Units 04:10 04:56 05:07 WBC (3.8-10.6) k/uL Neutrophils # (1.3-7.7) k/uL ABG pH 7.19 L* (7.35-7.45) ABG pO2 82 L (83-108) mmHg ABG HCO3 15 L (21-25) mmol/L ABG Total CO2 16 L (19-24) mmol/L Chloride 112 H (98-107) mmol/L Carbon Dioxide 13 L (22-30) mmol/L BUN 24 H (7-17) mg/dL Creatinine 3.40 H (0.52-1.04) mg/dL Glucose 304 H (74-99) mg/dL POC Glucose (mg/dL) 256 H (75-99) mg/dL Calcium 6.0 L* (8.4-10.2) mg/dL AST 77 H (14-36) U/L Total Protein 4.2 L (6.3-8.2) g/dL Albumin 1.9 L (3.5-5.0) g/dL 09/13/20 09/13/20 09/13/20 Range/Units 06:25 07:47 08:46 WBC (3.8-10.6) k/uL Neutrophils # (1.3-7.7) k/uL ABG pH (7.35-7.45) ABG pO2 (83-108) mmHg ABG HCO3 (21-25) mmol/L ABG Total CO2 (19-24) mmol/L Chloride (98-107) mmol/L Carbon Dioxide (22-30) mmol/L BUN (7-17) mg/dL Creatinine (0.52-1.04) mg/dL Glucose (74-99) mg/dL POC Glucose (mg/dL) 242 H 255 H 166 H (75-99) mg/dL Calcium (8.4-10.2) mg/dL AST (14-36) U/L Total Protein (6.3-8.2) g/dL Albumin (3.5-5.0) g/dL 09/13/20 09/13/20 09/13/20 Range/Units 09:53 10:41 11:47 WBC (3.8-10.6) k/uL Neutrophils # (1.3-7.7) k/uL ABG pH (7.35-7.45) ABG pO2 (83-108) mmHg ABG HCO3 (21-25) mmol/L ABG Total CO2 (19-24) mmol/L Chloride (98-107) mmol/L Carbon Dioxide (22-30) mmol/L BUN (7-17) mg/dL Creatinine (0.52-1.04) mg/dL Glucose (74-99) mg/dL POC Glucose (mg/dL) 150 H 155 H 158 H (75-99) mg/dL Calcium (8.4-10.2) mg/dL AST (14-36) U/L Total Protein (6.3-8.2) g/dL Albumin (3.5-5.0) g/dL 09/13/20 Range/Units 13:01 WBC (3.8-10.6) k/uL Neutrophils # (1.3-7.7) k/uL ABG pH (7.35-7.45) ABG pO2 (83-108) mmHg ABG HCO3 (21-25) mmol/L ABG Total CO2 (19-24) mmol/L Chloride (98-107) mmol/L Carbon Dioxide (22-30) mmol/L BUN (7-17) mg/dL Creatinine (0.52-1.04) mg/dL Glucose (74-99) mg/dL POC Glucose (mg/dL) 162 H (75-99) mg/dL Calcium (8.4-10.2) mg/dL AST (14-36) U/L Total Protein (6.3-8.2) g/dL Albumin (3.5-5.0) g/dL Microbiology - Last 24 Hours (Table) 09/11/20 Unknown Gram Stain - Final Sputum Sputum Culture - Final Assessment and Plan Plan: Assessment: #1. Acute hypoxic respiratory failure secondary to COVID-19 pneumonia, transferred to the intensive care unit on 09/11/2020 and intubated and placed on mechanical ventilator on 09/11/2020. Patient received 1 dose of Remdesivir on 09/11/2020, however he says of quick progression of her hypoxic respiratory failure she received Tocilizumab 800 mg on 09/11/2020 On 09/13/2020 patient remains atraumatic, sedated and paralyzed, currently with FiO2 of 70% and PEEP of 18, patient is being proned for 16 hours per day, tolerates well, oxygenation has improved with brawny position, and FiO2 was brought down from the 100% and PEEP was brought down from 20 #2. Acute kidney injury related to ATN, nephrology has been consulted, ultrasound of the kidneys showed no evidence of hydronephrosis #3. Acute diabetic ketoacidosis #4. Acute metabolic acidosis related to acute DKA, and acute kidney injury. Maintained on bicarbonate infusion #5. Increased d-dimer, related to COVID-19 pneumonia, currently on Lovenox 50 mg twice daily #6. Possible sepsis with increased pro-calcitonin suggesting presence of bacterial infection, cultures have been sent, patient has been started on Zosyn for empiric antibiotics coverage #7. Diabetes mellitus type 2 #8. Morbid obesity with BMI 45.3 kg/m #9. Nonsmoker Plan: Continue weaning FiO2 to maintain O2 saturations at or above 90% Currently FiO2 is at 70% and PEEP is 18 Continue bicarbonate infusion and the rate has been increased per nephrology Renal ultrasound has been reviewed and showed no evidence of hydronephrosis Patient remains oliguric and there has been worsening of her renal function Hemodynamically she is stable, not requiring any vasopressor support Continue current antibiotics Urinalysis with culture, follow-up pro-calcitonin And fentanyl infusion for pain control while on paralytic We will continue to prone patient for 16+ hours on a daily basis She tolerates prone positioning very well, and she seems to oxygenate better in prone position Start tube feedings today RD recommendations Continue current dose Lovenox will obtain follow-up d-dimer Follow-up basic labs and chest x-ray Monitor blood sugars Prognosis is guarded I performed a history & physical examination of the patient and discussed their management with my nurse practitioner, Renetta Moreira. I reviewed the nurse practitioner's note and agree with the documented findings and plan of care. Lung sounds are positive for diminished breath sounds. The findings and the impression was discussed with the patient. I attest to the documentation by the nurse practitioner. Time with Patient: Greater than 30
--- NOTE | 2020-09-13 14:00 | P.PN ---
Subjective 35 years old female patient of Dr. Chou with past medical history of type 2 diabetes comes in with acute shortness of breath associated with high light sugars. Patient on admission was found to have a fever of 101.5 pulse rate 125 respiratory rate 20. Blood pressure 132/106. On chest x-ray obtained in the ER suggestive of bilateral infiltrates concerning for call with pneumonia. COVID PCR was positive. On admissions patient had an ABG with a pH of 7.14 pCO2 of 20, pO2 of 59, bicarb of 7. Patient's blood sugar on admission was 424 on assessment today patient's blood work patient had a sodium 135 potassium 5.4 chloride 123 bicarb less than 5 and creatinine 0.73. D-dimer was elevated on admission patient 9 28 patient given 1 L of IV fluids followed by normal saline running at 200 mL/h. Patient was positive for acetone on admission. She will anion gap closed and was switched to D5NS. Insulin drip was continued during the night and was switched to patient's home medication this morning. One dose of remdesiver was ordered. Apparently around noon, A- team was called on the patient secondary to hypoxia patient's oxygen saturation dropped to the 70s and 80s on 100% nonrebreather. Patient was switched to BiPAP on 18/12 and is doing better o FiO2 of 80%. ABG was obtained and ph was 7. 14 pCO2 of 28 bicarb of 7 pO2 of 17. Patient noted to have uncompensated metabolic acidosis with compensated respiratory alkalosis. Stat dose of 1 amp bicarb was given and followed by sodium bicarbonate drip. Insulin drip restarted. Patient's initiated on dexamethasone 6 mg IV twice a day. Potassium phosphate ordered as phosphorus is low. Patient's repeat blood gases suggest a pH of 7.25, CO2 32 pO2 of 72 bicarb 14. I will not normal saline at 100 mL/h as patient's anion gap has increased. Patient given 1 dose of 2 mg of morphine with improvement in respiratory rate. One dose of Ativan 0.5 mg was given. Xanax 0.25 twice a day along with Ativan 0.5 IV every 6 hours ordered for the patient. Vitals were evaluated patient pulse 129 [id number]. She was moved to the ICU. Precedex drip was initiated. Lopressor was initiated at 25 twice a day. Metoprolol tartrate 5 mg IV every 6 hours. Systolic blood pressure more than 160. Started chest x-ray was obtained and suggest stable bilateral consolidation suggestive of COVID-19 pneumonia. 09/12 patient is seen in the ICU is currently mechanically ventilated and sedated on vent settings of respiratory rate 36, tidal volume 375 FiO2 80% PEEP of 18.. Vital signs reviewed patient had a temp of 100.4 pulse 150 respiratory rate 36 oxygen saturation 95% on 80% on fio2 .'s labs are reviewed which patient had a d-dimer 1.84 that is increased to 14.3. Arterial Blood gas suggest ph 7.35, CO2 40, po2 62, . Her BMP suggest a sodium 135 potassium 3.7 chloride 112 bicarb 21 creatinine 1.57 for calcitonin is 3.5 CRP is increased from 8.78.2 LDH is increased to 2614. Patient remains on Pneumovax, propofol drip. Lovenox increased to 50 subcu twice a day. Patient received 2 L of IV fluids. Continue IV fluids at 100 mL/h. Bicarb drip discontinued patient initiated on Zosyn 3.375 every 8 hours. Continue insulin drip at 4 units per hour. Patient is currently in prone positioning 09/13: Patient evaluated in the ICU remains on Ventilation continues to be sedated, in prone position. Vent settings are respiratory rate 36, tidal vital 375, FiO2 70% PEEP of 18. ABG shows pO2 of 82, P CO2 of 39, pH is 7.19. Latest labs show WBC 11.1, hemoglobin 13.2, d-dimer still pending, but yesterday was up to 14.3. Creatinine up to 3.4, BUN 24 sodium 137, potassium 4.0. Patient's urine output has been low, nephrology on consult. Bicarb drip increased to 100 miles an hour, receiving another liter of normal saline, she did have a ultrasound that showed unremarkable bilateral kidneys. Repeat chest x-ray showed bilateral lung infiltrates that are stable. Anion gap has closed, will start Lantus 10 units at at bedtime Novolog every 6 hours. Objective - Vital Signs Vital signs: Vital Signs Temp 98.3 F 09/13/20 12:00 Pulse 91 09/13/20 13:00 Resp 36 H 09/13/20 13:00 BP 90/39 09/13/20 13:00 Pulse Ox 81 L 09/13/20 13:00 Intake & Output 09/12/20 09/13/20 09/13/20 18:59 06:59 18:59 Intake Total 6029.513 9823.417 2379.941 Output Total 65 85 25 Balance 5964.513 5656.842 7014.941 Weight 101.8 kg Intake: IV 2500 1100 21 Dextrose 5% in Water 1, 300 000 ml @ 100 mls/hr IV . [id number] [facility] with Sodium Bicarb (1 Meq/ml) 150 ml Rx#:[id number] Pressure Bag 21 Sodium Chloride 0.9% 1, 1200 1100 0 000 ml @ 100 mls/hr IV . Q10H [facility] Rx#:[id number] Sodium Chloride 0.9% 1, 1000 000 ml @ 999 mls/hr IV . Q1H1M ONE Rx#:[id number] Intake, IV Titration 3529.513 671.406 5673.941 Amount Calcium Gluconate 1 gm In 100 Sodium Chloride 0.9% 100 ml @ 100 mls/hr IVPB ONCE ONE Rx#:[id number] Cisatracurium 200 mg In 77.846 79.298 Sodium Chloride 0.9% 180 ml @ 1 MCG/KG/MIN 6.015 mls/hr IV .Q24H [facility] Rx#: [id number] Dextrose 5% in Water 1, 600 000 ml @ 100 mls/hr IV . [id number] [facility] with Sodium Bicarb (1 Meq/ml) 150 ml Rx#:[id number] Insulin Regular 100 unit 17.067 In Sodium Chloride 0.9% 100 ml @ 0.1 UNITS/KG/HR 10.125 mls/hr IV .Q9H59M [facility] Rx#:[id number] Insulin Regular 100 unit 46.645 78.511 29.643 In Sodium Chloride 0.9% 100 ml @ Per Protocol IV .Q0M [facility] Rx#:[id number] Sodium Chloride 0.9% 1, 1000 000 ml @ 999 mls/hr IV . Q1H1M [facility] Rx#:[id number] Sodium Chloride 0.9% 2, 2000 000 ml @ 999 mls/hr IV . Q2H1M ONE Rx#:[id number] Sodium Chloride 0.9% 2, 1000 000 ml @ 999 mls/hr IV . Q2H1M ONE Rx#:[id number] propofoL 1,000 mg In 387.955 378.793 200 Empty Bag 1 bag @ Titrate IV .Q0M [facility] Rx#: [id number] Tube Feeding 81 Other 90 Output: Urine 65 85 25 Other: Voiding Method Indwelling Catheter Indwelling Catheter Indwelling Catheter ABP, PAP, CO, CI - Last Documented Arterial Blood Pressure 92/59 - Exam - Constitutional General appearance: intubated and sedated, in prone positioning obese - Neck Neck: normal ROM - Respiratory Respiratory: bilateral decreased air entry, Minimal chest retractions noted - Cardiovascular Rhythm sinus tachycardia Heart sounds: normal: S1, S2 - Gastrointestinal General gastrointestinal: Nondistended - Integumentary Integumentary: no rash - Neurologic Neurologic: No gross motor deficit - Musculoskeletal Musculoskeletal: Sedated - Psychiatric Psychiatric: Sedated - Labs CBC & Chem 7: 09/13/20 04:10 09/13/20 04:10 Labs: Abnormal Lab Results - Last 24 Hours (Table) 09/12/20 09/12/20 09/12/20 Range/Units 14:00 15:26 16:16 WBC (3.8-10.6) k/uL Neutrophils # (1.3-7.7) k/uL ABG pH (7.35-7.45) ABG pO2 (83-108) mmHg ABG HCO3 (21-25) mmol/L ABG Total CO2 (19-24) mmol/L Chloride (98-107) mmol/L Carbon Dioxide (22-30) mmol/L BUN (7-17) mg/dL Creatinine (0.52-1.04) mg/dL Glucose (74-99) mg/dL POC Glucose (mg/dL) 203 H 191 H 175 H (75-99) mg/dL Calcium (8.4-10.2) mg/dL AST (14-36) U/L Total Protein (6.3-8.2) g/dL Albumin (3.5-5.0) g/dL 09/12/20 09/12/20 09/12/20 Range/Units 17:28 18:54 21:10 WBC (3.8-10.6) k/uL Neutrophils # (1.3-7.7) k/uL ABG pH (7.35-7.45) ABG pO2 (83-108) mmHg ABG HCO3 (21-25) mmol/L ABG Total CO2 (19-24) mmol/L Chloride (98-107) mmol/L Carbon Dioxide (22-30) mmol/L BUN (7-17) mg/dL Creatinine (0.52-1.04) mg/dL Glucose (74-99) mg/dL POC Glucose (mg/dL) 174 H 192 H 170 H (75-99) mg/dL Calcium (8.4-10.2) mg/dL AST (14-36) U/L Total Protein (6.3-8.2) g/dL Albumin (3.5-5.0) g/dL 09/12/20 09/13/20 09/13/20 Range/Units 23:16 03:35 04:10 WBC 11.1 H (3.8-10.6) k/uL Neutrophils # 9.1 H (1.3-7.7) k/uL ABG pH (7.35-7.45) ABG pO2 (83-108) mmHg ABG HCO3 (21-25) mmol/L ABG Total CO2 (19-24) mmol/L Chloride (98-107) mmol/L Carbon Dioxide (22-30) mmol/L BUN (7-17) mg/dL Creatinine (0.52-1.04) mg/dL Glucose (74-99) mg/dL POC Glucose (mg/dL) 134 H 268 H (75-99) mg/dL Calcium (8.4-10.2) mg/dL AST (14-36) U/L Total Protein (6.3-8.2) g/dL Albumin (3.5-5.0) g/dL 09/13/20 09/13/20 09/13/20 Range/Units 04:10 04:56 05:07 WBC (3.8-10.6) k/uL Neutrophils # (1.3-7.7) k/uL ABG pH 7.19 L* (7.35-7.45) ABG pO2 82 L (83-108) mmHg ABG HCO3 15 L (21-25) mmol/L ABG Total CO2 16 L (19-24) mmol/L Chloride 112 H (98-107) mmol/L Carbon Dioxide 13 L (22-30) mmol/L BUN 24 H (7-17) mg/dL Creatinine 3.40 H (0.52-1.04) mg/dL Glucose 304 H (74-99) mg/dL POC Glucose (mg/dL) 256 H (75-99) mg/dL Calcium 6.0 L* (8.4-10.2) mg/dL AST 77 H (14-36) U/L Total Protein 4.2 L (6.3-8.2) g/dL Albumin 1.9 L (3.5-5.0) g/dL 09/13/20 09/13/20 09/13/20 Range/Units 06:25 07:47 08:46 WBC (3.8-10.6) k/uL Neutrophils # (1.3-7.7) k/uL ABG pH (7.35-7.45) ABG pO2 (83-108) mmHg ABG HCO3 (21-25) mmol/L ABG Total CO2 (19-24) mmol/L Chloride (98-107) mmol/L Carbon Dioxide (22-30) mmol/L BUN (7-17) mg/dL Creatinine (0.52-1.04) mg/dL Glucose (74-99) mg/dL POC Glucose (mg/dL) 242 H 255 H 166 H (75-99) mg/dL Calcium (8.4-10.2) mg/dL AST (14-36) U/L Total Protein (6.3-8.2) g/dL Albumin (3.5-5.0) g/dL 09/13/20 09/13/20 09/13/20 Range/Units 09:53 10:41 11:47 WBC (3.8-10.6) k/uL Neutrophils # (1.3-7.7) k/uL ABG pH (7.35-7.45) ABG pO2 (83-108) mmHg ABG HCO3 (21-25) mmol/L ABG Total CO2 (19-24) mmol/L Chloride (98-107) mmol/L Carbon Dioxide (22-30) mmol/L BUN (7-17) mg/dL Creatinine (0.52-1.04) mg/dL Glucose (74-99) mg/dL POC Glucose (mg/dL) 150 H 155 H 158 H (75-99) mg/dL Calcium (8.4-10.2) mg/dL AST (14-36) U/L Total Protein (6.3-8.2) g/dL Albumin (3.5-5.0) g/dL 09/13/20 Range/Units 13:01 WBC (3.8-10.6) k/uL Neutrophils # (1.3-7.7) k/uL ABG pH (7.35-7.45) ABG pO2 (83-108) mmHg ABG HCO3 (21-25) mmol/L ABG Total CO2 (19-24) mmol/L Chloride (98-107) mmol/L Carbon Dioxide (22-30) mmol/L BUN (7-17) mg/dL Creatinine (0.52-1.04) mg/dL Glucose (74-99) mg/dL POC Glucose (mg/dL) 162 H (75-99) mg/dL Calcium (8.4-10.2) mg/dL AST (14-36) U/L Total Protein (6.3-8.2) g/dL Albumin (3.5-5.0) g/dL Microbiology - Last 24 Hours (Table) 09/12/20 11:11 Blood Culture - Preliminary Blood No Growth after 24 hours 09/12/20 11:11 Blood Culture - Preliminary Blood No Growth after 24 hours 09/11/20 Unknown Gram Stain - Final Sputum Sputum Culture - Final Assessment and Plan Plan: #1 acute diabetes ketoacidosis secondary to COVID pneumonia. Status post 3 L IV bolus. Anion gap closed. Continue to hold metformin and Januvia, will wean off the insulin drip and switch to subcu NovoLog and Levemir. Continue monitoring electrolytes. Normal saline to be continued at 100 mL/h with bicarbonate drip per pulmonary. #2 acute hypoxic respiratory failure secondary to COVID pneumonia with possible bacterial pneumonia. Intubated on 09/11 Dexamethasone 6 mg IV twice a day continue vitamin C, vitamin D and zinc. Pro-air inhaler every 6 hours. Pulmicort twice daily. Status post Remdesivir and 1 dose of Tocilizumab. Zosyn 3.375 every 8 #3 acute metabolic acidosis with respiratory alkalosis secondary to DKA. Continue normal saline at 100 mL per hour in addition to D5W with bicarb to help with anion gap. Repeat ABG as needed #4 sepsis secondary to COVID 19 pneumonia pro-calcitonin high cannot exclude bacterial pneumonia. Chest x-ray suggestive of COVID-19 pneumonia. #5 type 2 uncontrolled diabetes A1c of 13.6 on metformin and Januvia as outpatient. Metformin and Januvia on hold continue insulin drip for now #6 anxiety status post Ativan with minimal improvement currently on Precedex drip #7 hypophosphatemia status post phosphate replacement #8 hyperkalemia secondary to DKA. Continue to watch for hypokalemia. will add potassium to patient normal saline #9 sinus tachycardia secondary to volume deficiency. Continue normal saline at 100 mL per hour. #10 hypertension metoprolol initiated with the twice a day. #9 DVT prophylaxis Lovenox 40 subcu daily #10 GI prophylaxis pantoprazole 40 daily #11 CODE STATUS full code The above impression and plan of care have been discussed and directed by signing physician. Montse Salgado nurse practitioner acting as scribe for signing physician.
[2020-09-13 15:42] LABS: Appearance,Urine Cloudy (Clear); Bacteria,Urine Occasional /hpf; Bilirubin,Urine Negative (Negative); Blood,Urine Moderate (Negative); Color,Urine Light Yellow; Glucose,Urine (UA) 2+ (Negative); Ketones,Urine Trace (Negative); Leukocyte Esterase,Urine Small (Negative); Nitrite,Urine Negative (Negative); PH, Urine 6.5 (5.0-8.0); Protein,Urine 3+ (Negative); RBC,Urine 16 /hpf (0-5); Specific Gravity,Urine 1.014 (1.001-1.035); Squamous Epithelial Cell,Urine 2 /hpf (0-4); Urobilinogen,Urine <2.0 mg/dL (<2.0); WBC,Urine 43 /hpf (0-5)
[2020-09-13] MEDS ORDERED: PIPERACILLIN-TAZOBACTAM 3.375 GM in SODIUM CHLORIDE 0.9% 100 ML IVPB SCH (16:00)
[2020-09-13] MEDS ORDERED: INSULIN ASPART (NovoLOG) 100 UNIT/ML VIAL SQ SCH (16:00)
[2020-09-13 16:20] LABS: Glucose,Whole Blood 285 mg/dL (75-99)
[2020-09-13] MEDS: CISATRACURIUM 200 MG in SODIUM CHLORIDE 0.9% 180 ML IV SCH (16:36)
[2020-09-13 17:08] LABS: Glucose,Whole Blood 359 mg/dL (75-99)
[2020-09-13 17:41] LABS: Potassium 3.5 mmol/L (3.5-5.1)
[2020-09-13 17:54] LABS: Glucose,Whole Blood 307 mg/dL (75-99)
[2020-09-13] MEDS ORDERED: CALCIUM GLUCONATE 2 GM in SODIUM CHLORIDE 0.9% 100 ML IVPB ONE (17:54)
[2020-09-13] MEDS ORDERED: POTASSIUM BICARBONATE/CIT AC 20 MEQ TABLET.EFF PO ONE (17:55)
[2020-09-13 18:41] LABS: C Reactive Protein 3.7 mg/dL (<1.0)
[2020-09-13 18:48] LABS: Glucose,Whole Blood 359 mg/dL (75-99)
[2020-09-13 19:51] LABS: Glucose,Whole Blood 332 mg/dL (75-99)
[2020-09-13] MEDS: CEFEPIME 1 GM in SODIUM CHLORIDE 0.9% 50 ML IVPB SCH (20:00)
[2020-09-13] MEDS: NOREPINEPHRINE 8 MG in SODIUM CHLORIDE 0.9% 250 ML IV SCH (20:01)
[2020-09-13] MEDS: guaiFENesin 600 MG TABLET.ER PO SCH (20:58)
[2020-09-13] MEDS ORDERED: INSULIN DETEMIR (LEVEMIR) 100 UNIT/ML SYR SQ SCH (21:00)
[2020-09-13 22:20] LABS: Glucose,Whole Blood 287 mg/dL (75-99)
[2020-09-14 00:15] LABS: Glucose,Whole Blood 257 mg/dL (75-99)
[2020-09-14 01:47] LABS: Glucose,Whole Blood 265 mg/dL (75-99)
[2020-09-14] MEDS: INSULIN REGULAR 100 UNIT in SODIUM CHLORIDE 0.9% 100 ML IV SCH ×3 (03:05→23:25)
[2020-09-14] MEDS: fentaNYL (PF). 1,000 MCG in SODIUM CHLORIDE 0.9% 80 ML IV SCH ×2 (03:19→23:26)
[2020-09-14 03:59] LABS: Ferritin 918.4 ng/mL (10.0-291.0)
[2020-09-14 04:10] LABS: Glucose,Whole Blood 209 mg/dL (75-99)
[2020-09-14 05:30] LABS: ABG Base Excess -3.6 mmol/L; ABG HCO3 23 mmol/L (21-25); ABG Oxygen Saturation 91.8 % (94-97); ABG PCO2 43 mmHg (35-45); ABG PH 7.32 (7.35-7.45); ABG PO2 60 mmHg (83-108); ABG TCO2 24 mmol/L (19-24); Allen Test Performed? Yes
[2020-09-14 05:39] LABS: Basophils # (A) 0.1 k/uL (0-0.2); Basophils % (A) 1 %; Eosinophils % (A) 0 %; HCT 34.4 % (34.0-46.0); HGB 11.3 gm/dL (11.4-16.0); Lymphocytes # (A) 1.1 k/uL (1.0-4.8); Lymphocytes % (A) 11 %; MCH 27.2 pg (25.0-35.0); MCHC 32.7 g/dL (31.0-37.0); Monocytes # (A) 0.7 k/uL (0-1.0); Monocytes % (A) 7 %; Neutrophils % (A) 78 %; Platelet Count 221 k/uL (150-450); Poikilocytosis Slight; RBC 4.14 m/uL (3.80-5.40); RDW 14.2 % (11.5-15.5); WBC 10.2 k/uL (3.8-10.6)
[2020-09-14 05:55] LABS: Glucose,Whole Blood 205 mg/dL (75-99)
[2020-09-14 06:25] LABS: C Reactive Protein 2.7 mg/dL (<1.0); Calcium 6.7 mg/dL (8.4-10.2); Phosphorus 3.8 mg/dL (2.5-4.5); Potassium 3.5 mmol/L (3.5-5.1)
[2020-09-14] MEDS: SYMBICORT 160-4.5 MCG INHALER INHALATION SCH ×2 (07:29→21:37)
[2020-09-14] MEDS: ALBUTEROL HFA INHALER INHALATION SCH ×4 (07:29→21:37)
[2020-09-14 07:51] LABS: Glucose,Whole Blood 170 mg/dL (75-99)
[2020-09-14] MEDS: CISATRACURIUM 200 MG in SODIUM CHLORIDE 0.9% 180 ML IV SCH ×2 (08:08→23:38)
[2020-09-14] MEDS: METOPROLOL TARTRATE 25 MG TAB PO SCH ×2 (08:41→20:24)
[2020-09-14] MEDS: CHOLECALCIFEROL 25 MCG (1000 IU) TABLET PO SCH (08:41)
[2020-09-14] MEDS: ASCORBIC ACID 500 MG TAB PO SCH ×2 (08:41→20:24)
[2020-09-14] MEDS: DEXAMETHASONE SOD PHOSPHATE 10 MG/ML 1 ML VIAL IV SCH ×2 (08:41→20:24)
[2020-09-14] MEDS: ENOXAPARIN 60 MG/0.6 ML SYRINGE SQ SCH (08:42)
[2020-09-14] MEDS: CHLORHEXIDINE GLUCONATE 15 ML CUP MUCOUS MEM SCH ×2 (08:42→20:25)
[2020-09-14] MEDS: PANTOPRAZOLE 40 MG/10 ML VIAL IVP SCH (08:42)
[2020-09-14] MEDS: ZINC SULFATE 220 MG CAP PO SCH (08:43)
[2020-09-14] MEDS: CEFEPIME 1 GM in SODIUM CHLORIDE 0.9% 50 ML IVPB SCH ×2 (09:00→20:25)
[2020-09-14 09:10] LABS: Glucose,Whole Blood 155 mg/dL (75-99)
[2020-09-14 10:35] LABS: Glucose,Whole Blood 212 mg/dL (75-99)
[2020-09-14] MEDS: SODIUM CHLORIDE 0.9% 1,000 ML IV SCH (10:43)
--- NOTE | 2020-09-14 10:46 | P.PN ---
Subjective Patient is seen in follow-up for acute kidney injury. Renal function worsening. Oliguric. Intubated. Currently in prone position. Not on vasopressors. Maintained on bicarb drip. Vital signs are stable. General: The patient appeared well nourished and normally developed. HEENT: Intubated. In prone position. LUNGS: Breath sounds decreased. HEART: Rate and Rhythm are regular on monitor. EXTREMITITES: Trace edema. Objective - Vital Signs Vital signs: Vital Signs Temp 98.2 F 09/14/20 08:00 Pulse 83 09/14/20 08:00 Resp 36 H 09/14/20 08:00 BP 90/39 09/14/20 08:00 Pulse Ox 92 L 09/14/20 08:00 Intake & Output 09/13/20 09/14/20 09/14/20 18:59 06:59 18:59 Intake Total 3013.513 2641.921 572.734 Output Total 30 310 25 Balance 2983.513 2331.921 547.734 Intake: IV 36 36 6 Pressure Bag 36 36 6 Sodium Chloride 0.9% 1, 0 000 ml @ 100 mls/hr IV . Q10H [facility] Rx#:[id number] Intake, IV Titration 2641.513 2161.921 482.734 Amount Calcium Gluconate 1 gm In 100 Sodium Chloride 0.9% 100 ml @ 100 mls/hr IVPB ONCE ONE Rx#:[id number] Calcium Gluconate 2 gm In 100 Sodium Chloride 0.9% 100 ml @ 100 mls/hr IVPB ONCE ONE Rx#:[id number] Cisatracurium 200 mg In 182.747 186.85 Sodium Chloride 0.9% 180 ml @ 1 MCG/KG/MIN 6.015 mls/hr IV .Q24H [facility] Rx#: [id number] Dextrose 5% in Water 1, 1000 1650 150 000 ml @ 100 mls/hr IV . Q35M10M [facility] with Sodium Bicarb (1 Meq/ml) 150 ml Rx#:[id number] Insulin Regular 100 unit 29.643 In Sodium Chloride 0.9% 100 ml @ Per Protocol IV .Q0M [facility] Rx#:[id number] Insulin Regular 100 unit 34.559 80.446 46.629 In Sodium Chloride 0.9% 100 ml @ Per Protocol IV .Q0M [facility] Rx#:[id number] Sodium Chloride 0.9% 1, 1000 000 ml @ 999 mls/hr IV . Q1H1M ONE Rx#:[id number] fentaNYL (PF). 1,000 mcg 19.13 48.61 In Sodium Chloride 0.9% 80 ml @ Per Protocol IV . Q0M [facility] Rx#:[id number] propofoL 1,000 mg In 275.434 282.865 99.255 Empty Bag 1 bag @ Titrate IV .Q0M [facility] Rx#: [id number] Tube Feeding 216 324 54 Other 120 120 30 Output: Urine 30 10 25 Other 300 Other: Voiding Method Indwelling Catheter Indwelling Catheter Indwelling Catheter ABP, PAP, CO, CI - Last Documented Arterial Blood Pressure 124/65 - Labs CBC & Chem 7: 09/14/20 05:20 09/14/20 05:20 Labs: Abnormal Lab Results - Last 24 Hours (Table) 09/13/20 09/13/20 09/13/20 Range/Units 10:41 11:47 13:01 Hgb (11.4-16.0) gm/dL Neutrophils # (1.3-7.7) k/uL D-Dimer (<0.60) mg/L FEU ABG pH (7.35-7.45) ABG pO2 (83-108) mmHg ABG O2 Saturation (94-97) % Chloride (98-107) mmol/L Carbon Dioxide (22-30) mmol/L BUN (7-17) mg/dL Creatinine (0.52-1.04) mg/dL Glucose (74-99) mg/dL POC Glucose (mg/dL) 155 H 158 H 162 H (75-99) mg/dL Calcium (8.4-10.2) mg/dL Ferritin (10.0-291.0) ng/mL Lactate Dehydrogenase (313-618) U/L C-Reactive Protein (<1.0) mg/dL Procalcitonin (0.02-0.09) ng/mL Urine Appearance (Clear) Urine Protein (Negative) Urine Glucose (UA) (Negative) Urine Ketones (Negative) Urine Blood (Negative) Ur Leukocyte Esterase (Negative) Urine RBC (0-5) /hpf Urine WBC (0-5) /hpf Urine Bacteria (None) /hpf 09/13/20 09/13/20 09/13/20 Range/Units 15:34 16:19 17:00 Hgb (11.4-16.0) gm/dL Neutrophils # (1.3-7.7) k/uL D-Dimer (<0.60) mg/L FEU ABG pH (7.35-7.45) ABG pO2 (83-108) mmHg ABG O2 Saturation (94-97) % Chloride (98-107) mmol/L Carbon Dioxide (22-30) mmol/L BUN (7-17) mg/dL Creatinine (0.52-1.04) mg/dL Glucose (74-99) mg/dL POC Glucose (mg/dL) 285 H (75-99) mg/dL Calcium (8.4-10.2) mg/dL Ferritin 918.4 H (10.0-291.0) ng/mL Lactate Dehydrogenase (313-618) U/L C-Reactive Protein 3.7 H (<1.0) mg/dL Procalcitonin (0.02-0.09) ng/mL Urine Appearance Cloudy H (Clear) Urine Protein 3+ H (Negative) Urine Glucose (UA) 2+ H (Negative) Urine Ketones Trace H (Negative) Urine Blood Moderate H (Negative) Ur Leukocyte Esterase Small H (Negative) Urine RBC 16 H (0-5) /hpf Urine WBC 43 H (0-5) /hpf Urine Bacteria Occasional H (None) /hpf 09/13/20 09/13/20 09/13/20 Range/Units 17:00 17:00 17:07 Hgb (11.4-16.0) gm/dL Neutrophils # (1.3-7.7) k/uL D-Dimer (<0.60) mg/L FEU ABG pH (7.35-7.45) ABG pO2 (83-108) mmHg ABG O2 Saturation (94-97) % Chloride 110 H (98-107) mmol/L Carbon Dioxide 18 L (22-30) mmol/L BUN 30 H (7-17) mg/dL Creatinine 3.93 H (0.52-1.04) mg/dL Glucose 372 H (74-99) mg/dL POC Glucose (mg/dL) 359 H (75-99) mg/dL Calcium 6.0 L* (8.4-10.2) mg/dL Ferritin (10.0-291.0) ng/mL Lactate Dehydrogenase (313-618) U/L C-Reactive Protein (<1.0) mg/dL Procalcitonin 23.51 H (0.02-0.09) ng/mL Urine Appearance (Clear) Urine Protein (Negative) Urine Glucose (UA) (Negative) Urine Ketones (Negative) Urine Blood (Negative) Ur Leukocyte Esterase (Negative) Urine RBC (0-5) /hpf Urine WBC (0-5) /hpf Urine Bacteria (None) /hpf 09/13/20 09/13/20 09/13/20 Range/Units 17:53 18:47 19:50 Hgb (11.4-16.0) gm/dL Neutrophils # (1.3-7.7) k/uL D-Dimer (<0.60) mg/L FEU ABG pH (7.35-7.45) ABG pO2 (83-108) mmHg ABG O2 Saturation (94-97) % Chloride (98-107) mmol/L Carbon Dioxide (22-30) mmol/L BUN (7-17) mg/dL Creatinine (0.52-1.04) mg/dL Glucose (74-99) mg/dL POC Glucose (mg/dL) 307 H 359 H 332 H (75-99) mg/dL Calcium (8.4-10.2) mg/dL Ferritin (10.0-291.0) ng/mL Lactate Dehydrogenase (313-618) U/L C-Reactive Protein (<1.0) mg/dL Procalcitonin (0.02-0.09) ng/mL Urine Appearance (Clear) Urine Protein (Negative) Urine Glucose (UA) (Negative) Urine Ketones (Negative) Urine Blood (Negative) Ur Leukocyte Esterase (Negative) Urine RBC (0-5) /hpf Urine WBC (0-5) /hpf Urine Bacteria (None) /hpf 09/13/20 09/14/20 09/14/20 Range/Units 22:19 00:13 01:45 Hgb (11.4-16.0) gm/dL Neutrophils # (1.3-7.7) k/uL D-Dimer (<0.60) mg/L FEU ABG pH (7.35-7.45) ABG pO2 (83-108) mmHg ABG O2 Saturation (94-97) % Chloride (98-107) mmol/L Carbon Dioxide (22-30) mmol/L BUN (7-17) mg/dL Creatinine (0.52-1.04) mg/dL Glucose (74-99) mg/dL POC Glucose (mg/dL) 287 H 257 H 265 H (75-99) mg/dL Calcium (8.4-10.2) mg/dL Ferritin (10.0-291.0) ng/mL Lactate Dehydrogenase (313-618) U/L C-Reactive Protein (<1.0) mg/dL Procalcitonin (0.02-0.09) ng/mL Urine Appearance (Clear) Urine Protein (Negative) Urine Glucose (UA) (Negative) Urine Ketones (Negative) Urine Blood (Negative) Ur Leukocyte Esterase (Negative) Urine RBC (0-5) /hpf Urine WBC (0-5) /hpf Urine Bacteria (None) /hpf 09/14/20 09/14/20 09/14/20 Range/Units 04:08 05:20 05:20 Hgb (11.4-16.0) gm/dL Neutrophils # (1.3-7.7) k/uL D-Dimer 7.36 H (<0.60) mg/L FEU ABG pH (7.35-7.45) ABG pO2 (83-108) mmHg ABG O2 Saturation (94-97) % Chloride (98-107) mmol/L Carbon Dioxide (22-30) mmol/L BUN 33 H (7-17) mg/dL Creatinine 4.87 H (0.52-1.04) mg/dL Glucose 214 H (74-99) mg/dL POC Glucose (mg/dL) 209 H (75-99) mg/dL Calcium 6.7 L (8.4-10.2) mg/dL Ferritin (10.0-291.0) ng/mL Lactate Dehydrogenase 2191 H (313-618) U/L C-Reactive Protein 2.7 H (<1.0) mg/dL Procalcitonin (0.02-0.09) ng/mL Urine Appearance (Clear) Urine Protein (Negative) Urine Glucose (UA) (Negative) Urine Ketones (Negative) Urine Blood (Negative) Ur Leukocyte Esterase (Negative) Urine RBC (0-5) /hpf Urine WBC (0-5) /hpf Urine Bacteria (None) /hpf 09/14/20 09/14/20 09/14/20 Range/Units 05:20 05:25 05:53 Hgb 11.3 L (11.4-16.0) gm/dL Neutrophils # 8.0 H (1.3-7.7) k/uL D-Dimer (<0.60) mg/L FEU ABG pH 7.32 L (7.35-7.45) ABG pO2 60 L (83-108) mmHg ABG O2 Saturation 91.8 L (94-97) % Chloride (98-107) mmol/L Carbon Dioxide (22-30) mmol/L BUN (7-17) mg/dL Creatinine (0.52-1.04) mg/dL Glucose (74-99) mg/dL POC Glucose (mg/dL) 205 H (75-99) mg/dL Calcium (8.4-10.2) mg/dL Ferritin (10.0-291.0) ng/mL Lactate Dehydrogenase (313-618) U/L C-Reactive Protein (<1.0) mg/dL Procalcitonin (0.02-0.09) ng/mL Urine Appearance (Clear) Urine Protein (Negative) Urine Glucose (UA) (Negative) Urine Ketones (Negative) Urine Blood (Negative) Ur Leukocyte Esterase (Negative) Urine RBC (0-5) /hpf Urine WBC (0-5) /hpf Urine Bacteria (None) /hpf 09/14/20 09/14/20 09/14/20 Range/Units 07:50 08:59 10:34 Hgb (11.4-16.0) gm/dL Neutrophils # (1.3-7.7) k/uL D-Dimer (<0.60) mg/L FEU ABG pH (7.35-7.45) ABG pO2 (83-108) mmHg ABG O2 Saturation (94-97) % Chloride (98-107) mmol/L Carbon Dioxide (22-30) mmol/L BUN (7-17) mg/dL Creatinine (0.52-1.04) mg/dL Glucose (74-99) mg/dL POC Glucose (mg/dL) 170 H 155 H 212 H (75-99) mg/dL Calcium (8.4-10.2) mg/dL Ferritin (10.0-291.0) ng/mL Lactate Dehydrogenase (313-618) U/L C-Reactive Protein (<1.0) mg/dL Procalcitonin (0.02-0.09) ng/mL Urine Appearance (Clear) Urine Protein (Negative) Urine Glucose (UA) (Negative) Urine Ketones (Negative) Urine Blood (Negative) Ur Leukocyte Esterase (Negative) Urine RBC (0-5) /hpf Urine WBC (0-5) /hpf Urine Bacteria (None) /hpf Microbiology - Last 24 Hours (Table) 09/13/20 15:34 Urine Culture - Preliminary Urine,Voided 09/12/20 11:11 Blood Culture - Preliminary Blood No Growth after 24 hours 09/12/20 11:11 Blood Culture - Preliminary Blood No Growth after 24 hours 09/11/20 Unknown Gram Stain - Final Sputum Sputum Culture - Final Assessment and Plan Plan: Assessment: 1. Acute kidney injury secondary to ATN secondary to COVID-19 and DKA. Baseline creatinine is near 1 and is up to 4.87 today. Oliguric. No hydronephrosis noted on kidney ultrasound. 2. DKA maintained on insulin drip and IV fluids. 3. Acute hypoxic respiratory failure secondary to COVID-19 pneumonia. Intubated. 4. Metabolic acidosis secondary to acute kidney injury and DKA maintained on bicarb drip. Improved. 5. Hypocalcemia secondary to acute kidney injury. Status post replacement. Better. Plan: Stop bicarb drip. Start normal saline at 50 mL an hour. Maintain tube feeds. Add oral bicarb. Status post IV Lasix september 13 with no response in urine output. Avoid nephrotoxins. Because worsened renal function and oliguria, initiate renal replacement therapy. Consult vascular surgery for dialysis catheter placement. Plan for first treatment of hemodialysis today and second treatment tomorrow.
[2020-09-14] MEDS: DEXTROSE 5% IN WATER 1,000 ML with SODIUM BICARB (1 MEQ/ML) 150 ML IV SCH (11:34)
[2020-09-14] MEDS: SODIUM BICARBONATE TAB 650 MG TAB PO SCH ×3 (11:41→23:41)
[2020-09-14 11:52] LABS: Glucose,Whole Blood 225 mg/dL (75-99)
[2020-09-14 12:07] LABS: Glucose,Whole Blood 194 mg/dL (75-99)
--- NOTE | 2020-09-14 12:39 | P.PN ---
Subjective Progress Note Date: 09/14/20 Principal diagnosis: DKA, COVID-19 pneumonia This is a 55-year-old -Cong[place] female with history of type 2 diabetes, admitted today through the emergency room with a few days' history of increased shortness of breath, cough, fever, chest x-ray in the ER showed bilateral i nfiltrates consistent with COVID-19 pneumonia in the patient had positive PCR for COVID-19 infection. Patient had significantly abnormal labs on admission, she had an extremely low bicarb, extremely low pH, and marginal oxygenation at best. Patient was admitted to the regular medical floor, and I happened to be rounding on that same floor were and I was notified about this patient having worsening respiratory distress. Evaluated the patient, clearly the patient has DKA and she clearly has acute hypoxic respiratory failure secondary to COVID-19 pneumonia. As soon as I laid eyes on the patient, recommended immediate transfer to the ICU. Patient was placed on BiPAP however she did not tolerate BiPAP well, and when I went back to evaluate the patient in the ICU, she was basically deteriorating, and she was using her accessory muscles, patient was in severe respiratory distress. Hence I recommended immediate intubation and placement on mechanical ventilation. Chest x-ray continued to show bilateral infiltrates consistent with worsening COVID-19 pneumonia ABG showed a pO2 of 59 pCO2 of 42 pH of 7.05 and this was on the 100% FiO2 20 of PEEP tidal volume of 375 rate of 36. Patient will be given more bicarb and she is already on a bicarb drip. She is receiving insulin and she is also receiving IV fluids in the form of 0.9 normal saline. Sugars were 384. Inflammatory markers were added to be extremely high, LDH 2048, and C-reactive protein of 8.7. D-dimer was borderline elevated at 1.84. On 09/12/2020 patient seen in follow-up in the intensive care unit, yesterday she was emergently transferred to the intensive care and intubated and placed on mechanical ventilator. She remains intubated, sedated on mechanical ventilator, currently on assist control mode of ventilation with a rate 36, tidal vital 375, FiO2 100% and PEEP of 20. This might blood gas reveals pO2 of 62, pCO2 40, pH of 7.35 this was done on FiO2 of 80%, her peak airway pressure is 35, in her plateau pressure is around 32. she is sedated on Diprivan and 60 mics per kilo per minute, 0.9 normal saline at 100 ML per hour, insulin drip is at 4 units per hour, and she has 5% dextrose with 3 units of bicarbonate at 100 ML per hour. Today's labs have been reviewed, showing white blood cell count 10.3, hemoglobin of 14.4, d-dimer has increased to 14.31, and her Lovenox was adjusted and increased to 50 mg twice daily, sodium is 137, potassium is 3.7, chloride is 112, CO2 is up to 21, BUN of 16 creatinine is 1.57, LDH is 2618, CRP is 18.2. Pro-Calcitonin level came back elevated at 3.53, suggesting possibility of bacterial infection She received a liter bolus yesterday after intubation. We w ill give the patient additional fluid boluses today. Sputum culture has been sent and is pending, blood cultures have been sent. Patient has been placed in prone position at 8:00 last night, and her oxygenation seems to be improved and she satting 97% on 100% FiO2 and subsequently FiO2 was dropped down to 80%, and PEEP is down to 18. She remains in prone positioning, tolerating it well, she is having low-grade fevers, she is in sinus mechanism with tachycardic on the monitor, not requiring any vasopressor support right now, will start tube feedings today when the patient is placed back over in the supine position On 09/13/2020 patient seen in follow-up in intensive care unit, she remains proned, and at the time of our evaluation patient has already been prone for close to 16 hours and is about to be turned back on her spine. She tolerates prone position quite well, she remains intubated, paralyzed and sedated on mechanical ventilator, current vent settings are assist-control mode of ventilation with a rate of 36, tidal volume 375, FiO2 of 70% and PEEP of 18, this point his blood gases show pO2 of 82, pCO2 of 39, and pH of 7.19. She's currently on D5 W with 3 A of bicarbonate at 75 per hour, Diprivan is a 60 mics per kilo per minute, index is at 2 mics per kilo per minute, and insulin drip is at 6 units per hour, patient has not started tube feedings yet. She is in sinus mechanism, hemodynamically stable, not requiring any vasopressor support. Today's chest x-ray has been reviewed showing bilateral lung infiltrates that appear to be stable. Today's labs have been reviewed showing white blood cell count of 11.1, hemoglobin 13.2, d-dimer is pending, yesterday his d-dimer was 14.3, patient's Lovenox dose was increased to 50 mg every 24 hours. Her renal function continued to worsen, and her creatinine is up to 3.4 on today's labs, BUN is 24, were bicarb concentration is only 13 on today's labs, sodium is 137, potassium is 4.0. AST is up to 77, ALT and alk phos are within normal limits, yesterday set him inflammatory markers with showing up trending LDH at 2618, and CRP of 18.2. Her pro-calcitonin level was increased yesterday at 3.53 and we added empiric antibiotics in the form of Zosyn. Sputum culture has been sent and has shown no growth. Overnight patient remained oliguric, yesterday we gave her additional fluids, however did not improve her renal function and her kidney function continued to get worse. Nephrology consultation has been requested, she has only been producing urine in the order of 5-10 ML per hour, renal ultrasound has been obtained showing no evidence of hydronephrosis bilaterally. On 09/14/2020 patient seen in follow-up in intensive care unit, she remains intubated, sedated and paralyzed, currently on assist control mode of ventilation with a rate of 36, tidal vital 375, FiO2 of 60% and PEEP of 18. This morning's blood gas was reviewed showing pO2 of 60, pCO2 of 43, and pH of 7.32. This was done on FiO2 of 70%, her peak airway pressure is 40, plateau pressures 26. She is currently on D5 with 3 A of bicarbonate at 100 ML per hour, insulin drip is at 7 units per hour, fentanyl drip is a 0.5 mics per kilo per hour, Diprivan and is at 50 mics per kilo per minute, and index is at 2 mics per kilo per minute. She is tolerating tube feedings of vital high-protein at 27 with a goal 27 standard water flushes. Today's chest x-ray has not been completed yet, because the patient has been in prone position for last 16 hours. Patient tolerates prone in quite well, and her oxygenation improves when she is in prone position. However when she is turned over in the supine position to complete chest x-rays and ADL's, patient's O2 sat drops down to low 80s and her FiO2 requirement increases at that time. Today's labs have been reviewed, and there has been further worsening of her renal function, and patient has made almost no urine overnight. Her BUN is 33, and creatinine is 4.87, nephrology is following, her renal ultrasound showed no evidence of hydronephrosis. Her urinalysis showed possibility of urinary tract infection, and patient has been started on cefepime. Urine culture is pending at this time, blood and sputum cultures have been negative. No fevers overnight, she's not requiring any vasopressor support. Objective - Vital Signs Vital signs: Vital Signs Temp 98.2 F 09/14/20 08:00 Pulse 80 09/14/20 11:00 Resp 36 H 09/14/20 11:00 BP 90/39 09/14/20 07:00 Pulse Ox 91 L 09/14/20 11:00 Intake & Output 09/13/20 09/14/20 09/14/20 18:59 06:59 18:59 Intake Total 3013.513 2641.921 946.400 Output Total 30 310 25 Balance 2983.513 2331.921 921.400 Weight 116.3 kg Intake: IV 36 36 15 Pressure Bag 36 36 15 Sodium Chloride 0.9% 1, 0 000 ml @ 100 mls/hr IV . Q10H [facility] Rx#:[id number] Intake, IV Titration 2641.513 2161.921 766.400 Amount Calcium Gluconate 1 gm In 100 Sodium Chloride 0.9% 100 ml @ 100 mls/hr IVPB ONCE ONE Rx#:[id number] Calcium Gluconate 2 gm In 100 Sodium Chloride 0.9% 100 ml @ 100 mls/hr IVPB ONCE ONE Rx#:[id number] Cefepime 1 gm In Sodium 50 Chloride 0.9% 50 ml @ 12. 5 mls/hr IVPB Q12HR [facility] Rx#:[id number] Cisatracurium 200 mg In 182.747 186.85 Sodium Chloride 0.9% 180 ml @ 1 MCG/KG/MIN 6.015 mls/hr IV .Q24H [facility] Rx#: [id number] Dextrose 5% in Water 1, 1000 1650 250 000 ml @ 100 mls/hr IV . [id number] [facility] with Sodium Bicarb (1 Meq/ml) 150 ml Rx#:[id number] Insulin Regular 100 unit 29.643 In Sodium Chloride 0.9% 100 ml @ Per Protocol IV .Q0M [facility] Rx#:[id number] Insulin Regular 100 unit 34.559 80.446 80.295 In Sodium Chloride 0.9% 100 ml @ Per Protocol IV .Q0M [facility] Rx#:[id number] Sodium Chloride 0.9% 1, 100 000 ml @ 50 mls/hr IV . Q20H [facility] Rx#:[id number] Sodium Chloride 0.9% 1, 1000 000 ml @ 999 mls/hr IV . Q1H1M [facility] Rx#:[id number] fentaNYL (PF). 1,000 mcg 19.13 48.61 In Sodium Chloride 0.9% 80 ml @ Per Protocol IV . Q0M [facility] Rx#:[id number] propofoL 1,000 mg In 275.434 282.865 99.255 Empty Bag 1 bag @ Titrate IV .Q0M [facility] Rx#: [id number] Tube Feeding 216 324 135 Other 120 120 30 Output: Urine 30 10 25 Other 300 Other: Voiding Method Indwelling Catheter Indwelling Catheter Indwelling Catheter ABP, PAP, CO, CI - Last Documented Arterial Blood Pressure 128/66 - Exam GENERAL EXAM: Sedated, intubated, -Cong[place]ese female, in prone position, on assist control mode of ventilation with FiO2 70 percent and PEEP of 18, with a pulse ox of 97% comfortable in no apparent distress. HEAD: Normocephalic/atraumatic. EYES: Normal reaction of pupils, equal size. Conjunctiva pink, sclera white. NOSE: Clear with pink turbinates. THROAT: No erythema or exudates. NECK: No masses, no JVD, no thyroid enlargement, no adenopathy. CHEST: No chest wall deformity. Symmetrical expansion. LUNGS: Equal air entry with bilateral crackles CVS: Regular rate and rhythm, normal S1 and S2, no gallops, no murmurs, no rubs ABDOMEN: Soft, nontender. No hepatosplenomegaly, normal bowel sounds, no guarding or rigidity. EXTREMITIES: No clubbing, no edema, no cyanosis, 2+ pulses and upper and lower extremities. MUSCULOSKELETAL: Muscle strength and tone normal. SPINE: No scoliosis or deformity SKIN: No rashes CENTRAL NERVOUS SYSTEM: Sedated, intubated. No focal deficits, tone is normal in all 4 extremities. - Labs CBC & Chem 7: 09/14/20 05:20 09/14/20 05:20 Labs: Abnormal Lab Results - Last 24 Hours (Table) 09/13/20 09/13/20 09/13/20 Range/Units 13:01 15:34 16:19 Hgb (11.4-16.0) gm/dL Neutrophils # (1.3-7.7) k/uL D-Dimer (<0.60) mg/L FEU ABG pH (7.35-7.45) ABG pO2 (83-108) mmHg ABG O2 Saturation (94-97) % Chloride (98-107) mmol/L Carbon Dioxide (22-30) mmol/L BUN (7-17) mg/dL Creatinine (0.52-1.04) mg/dL Glucose (74-99) mg/dL POC Glucose (mg/dL) 162 H 285 H (75-99) mg/dL Calcium (8.4-10.2) mg/dL Ferritin (10.0-291.0) ng/mL Lactate Dehydrogenase (313-618) U/L C-Reactive Protein (<1.0) mg/dL Procalcitonin (0.02-0.09) ng/mL Urine Appearance Cloudy H (Clear) Urine Protein 3+ H (Negative) Urine Glucose (UA) 2+ H (Negative) Urine Ketones Trace H (Negative) Urine Blood Moderate H (Negative) Ur Leukocyte Esterase Small H (Negative) Urine RBC 16 H (0-5) /hpf Urine WBC 43 H (0-5) /hpf Urine Bacteria Occasional H (None) /hpf 09/13/20 09/13/20 09/13/20 Range/Units 17:00 17:00 17:00 Hgb (11.4-16.0) gm/dL Neutrophils # (1.3-7.7) k/uL D-Dimer (<0.60) mg/L FEU ABG pH (7.35-7.45) ABG pO2 (83-108) mmHg ABG O2 Saturation (94-97) % Chloride 110 H (98-107) mmol/L Carbon Dioxide 18 L (22-30) mmol/L BUN 30 H (7-17) mg/dL Creatinine 3.93 H (0.52-1.04) mg/dL Glucose 372 H (74-99) mg/dL POC Glucose (mg/dL) (75-99) mg/dL Calcium 6.0 L* (8.4-10.2) mg/dL Ferritin 918.4 H (10.0-291.0) ng/mL Lactate Dehydrogenase (313-618) U/L C-Reactive Protein 3.7 H (<1.0) mg/dL Procalcitonin 23.51 H (0.02-0.09) ng/mL Urine Appearance (Clear) Urine Protein (Negative) Urine Glucose (UA) (Negative) Urine Ketones (Negative) Urine Blood (Negative) Ur Leukocyte Esterase (Negative) Urine RBC (0-5) /hpf Urine WBC (0-5) /hpf Urine Bacteria (None) /hpf 09/13/20 09/13/20 09/13/20 Range/Units 17:07 17:53 18:47 Hgb (11.4-16.0) gm/dL Neutrophils # (1.3-7.7) k/uL D-Dimer (<0.60) mg/L FEU ABG pH (7.35-7.45) ABG pO2 (83-108) mmHg ABG O2 Saturation (94-97) % Chloride (98-107) mmol/L Carbon Dioxide (22-30) mmol/L BUN (7-17) mg/dL Creatinine (0.52-1.04) mg/dL Glucose (74-99) mg/dL POC Glucose (mg/dL) 359 H 307 H 359 H (75-99) mg/dL Calcium (8.4-10.2) mg/dL Ferritin (10.0-291.0) ng/mL Lactate Dehydrogenase (313-618) U/L C-Reactive Protein (<1.0) mg/dL Procalcitonin (0.02-0.09) ng/mL Urine Appearance (Clear) Urine Protein (Negative) Urine Glucose (UA) (Negative) Urine Ketones (Negative) Urine Blood (Negative) Ur Leukocyte Esterase (Negative) Urine RBC (0-5) /hpf Urine WBC (0-5) /hpf Urine Bacteria (None) /hpf 09/13/20 09/13/20 09/14/20 Range/Units 19:50 22:19 00:13 Hgb (11.4-16.0) gm/dL Neutrophils # (1.3-7.7) k/uL D-Dimer (<0.60) mg/L FEU ABG pH (7.35-7.45) ABG pO2 (83-108) mmHg ABG O2 Saturation (94-97) % Chloride (98-107) mmol/L Carbon Dioxide (22-30) mmol/L BUN (7-17) mg/dL Creatinine (0.52-1.04) mg/dL Glucose (74-99) mg/dL POC Glucose (mg/dL) 332 H 287 H 257 H (75-99) mg/dL Calcium (8.4-10.2) mg/dL Ferritin (10.0-291.0) ng/mL Lactate Dehydrogenase (313-618) U/L C-Reactive Protein (<1.0) mg/dL Procalcitonin (0.02-0.09) ng/mL Urine Appearance (Clear) Urine Protein (Negative) Urine Glucose (UA) (Negative) Urine Ketones (Negative) Urine Blood (Negative) Ur Leukocyte Esterase (Negative) Urine RBC (0-5) /hpf Urine WBC (0-5) /hpf Urine Bacteria (None) /hpf 09/14/20 09/14/20 09/14/20 Range/Units 01:45 04:08 05:20 Hgb (11.4-16.0) gm/dL Neutrophils # (1.3-7.7) k/uL D-Dimer (<0.60) mg/L FEU ABG pH (7.35-7.45) ABG pO2 (83-108) mmHg ABG O2 Saturation (94-97) % Chloride (98-107) mmol/L Carbon Dioxide (22-30) mmol/L BUN 33 H (7-17) mg/dL Creatinine 4.87 H (0.52-1.04) mg/dL Glucose 214 H (74-99) mg/dL POC Glucose (mg/dL) 265 H 209 H (75-99) mg/dL Calcium 6.7 L (8.4-10.2) mg/dL Ferritin (10.0-291.0) ng/mL Lactate Dehydrogenase 2191 H (313-618) U/L C-Reactive Protein 2.7 H (<1.0) mg/dL Procalcitonin (0.02-0.09) ng/mL Urine Appearance (Clear) Urine Protein (Negative) Urine Glucose (UA) (Negative) Urine Ketones (Negative) Urine Blood (Negative) Ur Leukocyte Esterase (Negative) Urine RBC (0-5) /hpf Urine WBC (0-5) /hpf Urine Bacteria (None) /hpf 09/14/20 09/14/20 09/14/20 Range/Units 05:20 05:20 05:25 Hgb 11.3 L (11.4-16.0) gm/dL Neutrophils # 8.0 H (1.3-7.7) k/uL D-Dimer 7.36 H (<0.60) mg/L FEU ABG pH 7.32 L (7.35-7.45) ABG pO2 60 L (83-108) mmHg ABG O2 Saturation 91.8 L (94-97) % Chloride (98-107) mmol/L Carbon Dioxide (22-30) mmol/L BUN (7-17) mg/dL Creatinine (0.52-1.04) mg/dL Glucose (74-99) mg/dL POC Glucose (mg/dL) (75-99) mg/dL Calcium (8.4-10.2) mg/dL Ferritin (10.0-291.0) ng/mL Lactate Dehydrogenase (313-618) U/L C-Reactive Protein (<1.0) mg/dL Procalcitonin (0.02-0.09) ng/mL Urine Appearance (Clear) Urine Protein (Negative) Urine Glucose (UA) (Negative) Urine Ketones (Negative) Urine Blood (Negative) Ur Leukocyte Esterase (Negative) Urine RBC (0-5) /hpf Urine WBC (0-5) /hpf Urine Bacteria (None) /hpf 09/14/20 09/14/20 09/14/20 Range/Units 05:53 07:50 08:59 Hgb (11.4-16.0) gm/dL Neutrophils # (1.3-7.7) k/uL D-Dimer (<0.60) mg/L FEU ABG pH (7.35-7.45) ABG pO2 (83-108) mmHg ABG O2 Saturation (94-97) % Chloride (98-107) mmol/L Carbon Dioxide (22-30) mmol/L BUN (7-17) mg/dL Creatinine (0.52-1.04) mg/dL Glucose (74-99) mg/dL POC Glucose (mg/dL) 205 H 170 H 155 H (75-99) mg/dL Calcium (8.4-10.2) mg/dL Ferritin (10.0-291.0) ng/mL Lactate Dehydrogenase (313-618) U/L C-Reactive Protein (<1.0) mg/dL Procalcitonin (0.02-0.09) ng/mL Urine Appearance (Clear) Urine Protein (Negative) Urine Glucose (UA) (Negative) Urine Ketones (Negative) Urine Blood (Negative) Ur Leukocyte Esterase (Negative) Urine RBC (0-5) /hpf Urine WBC (0-5) /hpf Urine Bacteria (None) /hpf 09/14/20 09/14/20 09/14/20 Range/Units 10:34 11:51 12:06 Hgb (11.4-16.0) gm/dL Neutrophils # (1.3-7.7) k/uL D-Dimer (<0.60) mg/L FEU ABG pH (7.35-7.45) ABG pO2 (83-108) mmHg ABG O2 Saturation (94-97) % Chloride (98-107) mmol/L Carbon Dioxide (22-30) mmol/L BUN (7-17) mg/dL Creatinine (0.52-1.04) mg/dL Glucose (74-99) mg/dL POC Glucose (mg/dL) 212 H 225 H 194 H (75-99) mg/dL Calcium (8.4-10.2) mg/dL Ferritin (10.0-291.0) ng/mL Lactate Dehydrogenase (313-618) U/L C-Reactive Protein (<1.0) mg/dL Procalcitonin (0.02-0.09) ng/mL Urine Appearance (Clear) Urine Protein (Negative) Urine Glucose (UA) (Negative) Urine Ketones (Negative) Urine Blood (Negative) Ur Leukocyte Esterase (Negative) Urine RBC (0-5) /hpf Urine WBC (0-5) /hpf Urine Bacteria (None) /hpf Microbiology - Last 24 Hours (Table) 09/13/20 15:34 Urine Culture - Preliminary Urine,Voided 09/12/20 11:11 Blood Culture - Preliminary Blood No Growth after 24 hours 09/12/20 11:11 Blood Culture - Preliminary Blood No Growth after 24 hours 09/11/20 Unknown Gram Stain - Final Sputum Sputum Culture - Final Assessment and Plan Plan: Assessment: #1. Acute hypoxic respiratory failure secondary to COVID-19 pneumonia, transferred to the intensive care unit on 09/11/2020 and intubated and placed on mechanical ventilator on 09/11/2020. Patient received 1 dose of Remdesivir on 09/11/2020, however he says of quick progression of her hypoxic respiratory failure she received Tocilizumab 800 mg on 09/11/2020 On 09/13/2020 patient remains atraumatic, sedated and paralyzed, currently with FiO2 of 70% and PEEP of 18, patient is being proned for 16 hours per day, tolerates well, oxygenation has improved with brawny position, and FiO2 was brought down from the 100% and PEEP was brought down from 20 #2. Acute kidney injury related to ATN, nephrology has been consulted, ultrasound of the kidneys showed no evidence of hydronephrosis #3. Acute diabetic ketoacidosis #4. Acute metabolic acidosis related to acute DKA, and acute kidney injury. Maintained on bicarbonate infusion #5. Increased d-dimer, related to COVID-19 pneumonia, currently on Lovenox 50 mg twice daily #6. Possible sepsis with increased pro-calcitonin suggesting presence of bacterial infection, cultures have been sent, patient has been started on Zosyn for empiric antibiotics coverage #7. Diabetes mellitus type 2 #8. Morbid obesity with BMI 45.3 kg/m #9. Nonsmoker Plan: Today's chest x-ray will be completed today when the patient was placed in supine position Blood gas reviewed, we'll continue prone positioning the patient, she seems to oxygenate better in prone position, from 16-20 hours on a daily basis Continue current dose Decadron Continue current dose Lovenox Continue nutritional support Hemodynamically patient is stable not requiring any vasopressor support We'll continue current antibiotics for possibility of urinary tract infection Cultures have been sent and are pending at this time We'll continue sedation and pharmacological paralysis, Not ready for paralytic holiday Patient had further worsening of her renal function Continue bicarbonate infusion Nephrology recs Continue to closely follow in the intensive care unit Prognosis is guarded I performed a history & physical examination of the patient and discussed their management with my nurse practitioner, Renetta Moreira. I reviewed the nurse practitioner's note and agree with the documented findings and plan of care. Lung sounds are positive for diminished breath sounds. The findings and the impression was discussed with the patient. I attest to the documentation by the nurse practitioner. Time with Patient: Greater than 30
[2020-09-14 13:20] LABS: Glucose,Whole Blood 222 mg/dL (75-99)
--- NOTE | 2020-09-14 13:24 | P.GSCN ---
History of Present Illness Consult date: 09/14/20 Reason for Consult: To kidney injury, need for hemodialysis catheter Requesting physician: Franck Ortiz History of present illness: This is a 35-year-old -[place] female who was admitted to the ICU with COVID-19 pneumonia with acute respiratory hypoxia. She has a past medical history of 2 diabetes mellitus and obesity. She was intubated on Friday, she has had to be in a prone position to maintain her oxygenation. She has had worsening kidney function over the last couple of days, and I'll occur. Nep hrology has been following closely and requesting vascular surgery to place a temporary hemodialysis catheter for renal replacement therapy. Review of Systems ROS unobtainable: due to endotracheal tube Past Medical History Past Medical History: Diabetes Mellitus History of Any Multi-Drug Resistant Organisms: None Reported Past Surgical History: Section, Tubal Ligation Past Psychological History: No Psychological Hx Reported Smoking Status: Never smoker Past Alcohol Use History: Occasional Past Drug Use History: None Reported Medications and Allergies Home Medications Medication Instructions Recorded Confirmed Type metFORMIN HCL 1,000 mg PO BID 09/10/20 09/10/20 History sitaGLIPtin PHOSPHATE [Januvia] 100 mg PO DAILY 09/10/20 09/10/20 History Allergies Allergy/AdvReac Type Severity Reaction Status Date / Time No Known Allergies Allergy Verified 09/10/20 15:23 Surgical - Exam Vital Signs Temp Pulse Resp BP Pulse Ox 101.5 F H 129 H 24 132/106 98 09/10/20 12:43 09/10/20 12:43 09/10/20 12:43 09/10/20 12:43 09/10/20 12:43 General appearance: Sedated, intubated. In prone position. HET: Head is normocephalic and atraumatic. . Neck: Supple without lymphadenopathy. Trachea midline. Heart: S1 S2. Regular rate and rhythm. Lungs: Normal expansion with mechanical ventilation. Abdomen: Soft, nontender, nondistended. Extremities: Normal skin color and turgor. Neurological: Sedated, on mechanical ventilation. Results - Labs 09/14/20 05:20 09/14/20 05:20 Abnormal Lab Results - Last 24 Hours (Table) 09/13/20 09/13/20 09/13/20 Range/Units 15:34 16:19 17:00 Hgb (11.4-16.0) gm/dL Neutrophils # (1.3-7.7) k/uL D-Dimer (<0.60) mg/L FEU ABG pH (7.35-7.45) ABG pO2 (83-108) mmHg ABG O2 Saturation (94-97) % Chloride (98-107) mmol/L Carbon Dioxide (22-30) mmol/L BUN (7-17) mg/dL Creatinine (0.52-1.04) mg/dL Glucose (74-99) mg/dL POC Glucose (mg/dL) 285 H (75-99) mg/dL Calcium (8.4-10.2) mg/dL Ferritin 918.4 H (10.0-291.0) ng/mL Lactate Dehydrogenase (313-618) U/L C-Reactive Protein 3.7 H (<1.0) mg/dL Procalcitonin (0.02-0.09) ng/mL Urine Appearance Cloudy H (Clear) Urine Protein 3+ H (Negative) Urine Glucose (UA) 2+ H (Negative) Urine Ketones Trace H (Negative) Urine Blood Moderate H (Negative) Ur Leukocyte Esterase Small H (Negative) Urine RBC 16 H (0-5) /hpf Urine WBC 43 H (0-5) /hpf Urine Bacteria Occasional H (None) /hpf 09/13/20 09/13/20 09/13/20 Range/Units 17:00 17:00 17:07 Hgb (11.4-16.0) gm/dL Neutrophils # (1.3-7.7) k/uL D-Dimer (<0.60) mg/L FEU ABG pH (7.35-7.45) ABG pO2 (83-108) mmHg ABG O2 Saturation (94-97) % Chloride 110 H (98-107) mmol/L Carbon Dioxide 18 L (22-30) mmol/L BUN 30 H (7-17) mg/dL Creatinine 3.93 H (0.52-1.04) mg/dL Glucose 372 H (74-99) mg/dL POC Glucose (mg/dL) 359 H (75-99) mg/dL Calcium 6.0 L* (8.4-10.2) mg/dL Ferritin (10.0-291.0) ng/mL Lactate Dehydrogenase (313-618) U/L C-Reactive Protein (<1.0) mg/dL Procalcitonin 23.51 H (0.02-0.09) ng/mL Urine Appearance (Clear) Urine Protein (Negative) Urine Glucose (UA) (Negative) Urine Ketones (Negative) Urine Blood (Negative) Ur Leukocyte Esterase (Negative) Urine RBC (0-5) /hpf Urine WBC (0-5) /hpf Urine Bacteria (None) /hpf 09/13/20 09/13/20 09/13/20 Range/Units 17:53 18:47 19:50 Hgb (11.4-16.0) gm/dL Neutrophils # (1.3-7.7) k/uL D-Dimer (<0.60) mg/L FEU ABG pH (7.35-7.45) ABG pO2 (83-108) mmHg ABG O2 Saturation (94-97) % Chloride (98-107) mmol/L Carbon Dioxide (22-30) mmol/L BUN (7-17) mg/dL Creatinine (0.52-1.04) mg/dL Glucose (74-99) mg/dL POC Glucose (mg/dL) 307 H 359 H 332 H (75-99) mg/dL Calcium (8.4-10.2) mg/dL Ferritin (10.0-291.0) ng/mL Lactate Dehydrogenase (313-618) U/L C-Reactive Protein (<1.0) mg/dL Procalcitonin (0.02-0.09) ng/mL Urine Appearance (Clear) Urine Protein (Negative) Urine Glucose (UA) (Negative) Urine Ketones (Negative) Urine Blood (Negative) Ur Leukocyte Esterase (Negative) Urine RBC (0-5) /hpf Urine WBC (0-5) /hpf Urine Bacteria (None) /hpf 09/13/20 09/14/20 09/14/20 Range/Units 22:19 00:13 01:45 Hgb (11.4-16.0) gm/dL Neutrophils # (1.3-7.7) k/uL D-Dimer (<0.60) mg/L FEU ABG pH (7.35-7.45) ABG pO2 (83-108) mmHg ABG O2 Saturation (94-97) % Chloride (98-107) mmol/L Carbon Dioxide (22-30) mmol/L BUN (7-17) mg/dL Creatinine (0.52-1.04) mg/dL Glucose (74-99) mg/dL POC Glucose (mg/dL) 287 H 257 H 265 H (75-99) mg/dL Calcium (8.4-10.2) mg/dL Ferritin (10.0-291.0) ng/mL Lactate Dehydrogenase (313-618) U/L C-Reactive Protein (<1.0) mg/dL Procalcitonin (0.02-0.09) ng/mL Urine Appearance (Clear) Urine Protein (Negative) Urine Glucose (UA) (Negative) Urine Ketones (Negative) Urine Blood (Negative) Ur Leukocyte Esterase (Negative) Urine RBC (0-5) /hpf Urine WBC (0-5) /hpf Urine Bacteria (None) /hpf 09/14/20 09/14/20 09/14/20 Range/Units 04:08 05:20 05:20 Hgb (11.4-16.0) gm/dL Neutrophils # (1.3-7.7) k/uL D-Dimer 7.36 H (<0.60) mg/L FEU ABG pH (7.35-7.45) ABG pO2 (83-108) mmHg ABG O2 Saturation (94-97) % Chloride (98-107) mmol/L Carbon Dioxide (22-30) mmol/L BUN 33 H (7-17) mg/dL Creatinine 4.87 H (0.52-1.04) mg/dL Glucose 214 H (74-99) mg/dL POC Glucose (mg/dL) 209 H (75-99) mg/dL Calcium 6.7 L (8.4-10.2) mg/dL Ferritin (10.0-291.0) ng/mL Lactate Dehydrogenase 2191 H (313-618) U/L C-Reactive Protein 2.7 H (<1.0) mg/dL Procalcitonin (0.02-0.09) ng/mL Urine Appearance (Clear) Urine Protein (Negative) Urine Glucose (UA) (Negative) Urine Ketones (Negative) Urine Blood (Negative) Ur Leukocyte Esterase (Negative) Urine RBC (0-5) /hpf Urine WBC (0-5) /hpf Urine Bacteria (None) /hpf 09/14/20 09/14/20 09/14/20 Range/Units 05:20 05:25 05:53 Hgb 11.3 L (11.4-16.0) gm/dL Neutrophils # 8.0 H (1.3-7.7) k/uL D-Dimer (<0.60) mg/L FEU ABG pH 7.32 L (7.35-7.45) ABG pO2 60 L (83-108) mmHg ABG O2 Saturation 91.8 L (94-97) % Chloride (98-107) mmol/L Carbon Dioxide (22-30) mmol/L BUN (7-17) mg/dL Creatinine (0.52-1.04) mg/dL Glucose (74-99) mg/dL POC Glucose (mg/dL) 205 H (75-99) mg/dL Calcium (8.4-10.2) mg/dL Ferritin (10.0-291.0) ng/mL Lactate Dehydrogenase (313-618) U/L C-Reactive Protein (<1.0) mg/dL Procalcitonin (0.02-0.09) ng/mL Urine Appearance (Clear) Urine Protein (Negative) Urine Glucose (UA) (Negative) Urine Ketones (Negative) Urine Blood (Negative) Ur Leukocyte Esterase (Negative) Urine RBC (0-5) /hpf Urine WBC (0-5) /hpf Urine Bacteria (None) /hpf 09/14/20 09/14/20 09/14/20 Range/Units 07:50 08:59 10:34 Hgb (11.4-16.0) gm/dL Neutrophils # (1.3-7.7) k/uL D-Dimer (<0.60) mg/L FEU ABG pH (7.35-7.45) ABG pO2 (83-108) mmHg ABG O2 Saturation (94-97) % Chloride (98-107) mmol/L Carbon Dioxide (22-30) mmol/L BUN (7-17) mg/dL Creatinine (0.52-1.04) mg/dL Glucose (74-99) mg/dL POC Glucose (mg/dL) 170 H 155 H 212 H (75-99) mg/dL Calcium (8.4-10.2) mg/dL Ferritin (10.0-291.0) ng/mL Lactate Dehydrogenase (313-618) U/L C-Reactive Protein (<1.0) mg/dL Procalcitonin (0.02-0.09) ng/mL Urine Appearance (Clear) Urine Protein (Negative) Urine Glucose (UA) (Negative) Urine Ketones (Negative) Urine Blood (Negative) Ur Leukocyte Esterase (Negative) Urine RBC (0-5) /hpf Urine WBC (0-5) /hpf Urine Bacteria (None) /hpf 09/14/20 09/14/20 Range/Units 11:51 12:06 Hgb (11.4-16.0) gm/dL Neutrophils # (1.3-7.7) k/uL D-Dimer (<0.60) mg/L FEU ABG pH (7.35-7.45) ABG pO2 (83-108) mmHg ABG O2 Saturation (94-97) % Chloride (98-107) mmol/L Carbon Dioxide (22-30) mmol/L BUN (7-17) mg/dL Creatinine (0.52-1.04) mg/dL Glucose (74-99) mg/dL POC Glucose (mg/dL) 225 H 194 H (75-99) mg/dL Calcium (8.4-10.2) mg/dL Ferritin (10.0-291.0) ng/mL Lactate Dehydrogenase (313-618) U/L C-Reactive Protein (<1.0) mg/dL Procalcitonin (0.02-0.09) ng/mL Urine Appearance (Clear) Urine Protein (Negative) Urine Glucose (UA) (Negative) Urine Ketones (Negative) Urine Blood (Negative) Ur Leukocyte Esterase (Negative) Urine RBC (0-5) /hpf Urine WBC (0-5) /hpf Urine Bacteria (None) /hpf Microbiology - Last 24 Hours (Table) 09/13/20 15:34 Urine Culture - Preliminary Urine,Voided 09/12/20 11:11 Blood Culture - Preliminary Blood No Growth after 24 hours 09/12/20 11:11 Blood Culture - Preliminary Blood No Growth after 24 hours 09/11/20 Unknown Gram Stain - Final Sputum Sputum Culture - Final Diabetes panel 09/13/20 09/14/20 Range/Units 17:00 05:20 Sodium 137 137 (137-145) mmol/L Potassium 3.5 3.5 (3.5-5.1) mmol/L Chloride 110 H 106 (98-107) mmol/L Carbon Dioxide 18 L 22 (22-30) mmol/L BUN 30 H 33 H (7-17) mg/dL Creatinine 3.93 H 4.87 H (0.52-1.04) mg/dL Glucose 372 H 214 H (74-99) mg/dL Calcium 6.0 L* 6.7 L (8.4-10.2) mg/dL Calcium panel 09/13/20 09/14/20 Range/Units 17:00 05:20 Calcium 6.0 L* 6.7 L (8.4-10.2) mg/dL Phosphorus 3.8 (2.5-4.5) mg/dL Pituitary panel 09/13/20 09/14/20 Range/Units 17:00 05:20 Sodium 137 137 (137-145) mmol/L Potassium 3.5 3.5 (3.5-5.1) mmol/L Chloride 110 H 106 (98-107) mmol/L Carbon Dioxide 18 L 22 (22-30) mmol/L BUN 30 H 33 H (7-17) mg/dL Creatinine 3.93 H 4.87 H (0.52-1.04) mg/dL Glucose 372 H 214 H (74-99) mg/dL Calcium 6.0 L* 6.7 L (8.4-10.2) mg/dL Adrenal panel 09/13/20 09/14/20 Range/Units 17:00 05:20 Sodium 137 137 (137-145) mmol/L Potassium 3.5 3.5 (3.5-5.1) mmol/L Chloride 110 H 106 (98-107) mmol/L Carbon Dioxide 18 L 22 (22-30) mmol/L BUN 30 H 33 H (7-17) mg/dL Creatinine 3.93 H 4.87 H (0.52-1.04) mg/dL Glucose 372 H 214 H (74-99) mg/dL Calcium 6.0 L* 6.7 L (8.4-10.2) mg/dL Assessment and Plan Assessment: 1. Acute kidney injury 2. COVID-19 pneumonitis 3. Acute respiratory hypoxia on mechanical ventilation 4. Diabetes mellitus Plan: 1. Plan for temporary hemodialysis catheter at bedside, please obtain consent and ultrasound 2. Proceed with hemodialysis as ordered per nephrology 3. Continue ICU medical management Thank you for this consultation The impression and plan of care has been dictated as directed. Dr. Albarran I performed a history and examination of this patient, discussed the same with the dictator. I agree with the dictator's note ,documented as a scribe. Any additional findings or plans will be noted.
--- NOTE | 2020-09-14 14:19 | P.PN ---
Subjective 35 years old female patient of Dr. Chou with past medical history of type 2 diabetes comes in with acute shortness of breath associated with high light sugars. Patient on admission was found to have a fever of 101.5 pulse rate 125 respiratory rate 20. Blood pressure 132/106. On chest x-ray obtained in the ER suggestive of bilateral infiltrates concerning for call with pneumonia. COVID PCR was positive. On admissions patient had an ABG with a pH of 7.14 pCO2 of 20, pO2 of 59, bicarb of 7. Patient's blood sugar on admission was 424 on assessment today patient's blood work patient had a sodium 135 potassium 5.4 chloride 123 bicarb less than 5 and creatinine 0.73. D-dimer was elevated on admission patient 9 28 patient given 1 L of IV fluids followed by normal saline running at 200 mL/h. Patient was positive for acetone on admission. She will anion gap closed and was switched to D5NS. Insulin drip was continued during the night and was switched to patient's home medication this morning. One dose of remdesiver was ordered. Apparently around noon, A- team was called on the patient secondary to hypoxia patient's oxygen saturation dropped to the 70s and 80s on 100% nonrebreather. Patient was switched to BiPAP on 18/12 and is doing better o FiO2 of 80%. ABG was obtained and ph was 7. 14 pCO2 of 28 bicarb of 7 pO2 of 17. Patient noted to have uncompensated metabolic acidosis with compensated respiratory alkalosis. Stat dose of 1 amp bicarb was given and followed by sodium bicarbonate drip. Insulin drip restarted. Patient's initiated on dexamethasone 6 mg IV twice a day. Potassium phosphate ordered as phosphorus is low. Patient's repeat blood gases suggest a pH of 7.25, CO2 32 pO2 of 72 bicarb 14. I will not normal saline at 100 mL/h as patient's anion gap has increased. Patient given 1 dose of 2 mg of morphine with improvement in respiratory rate. One dose of Ativan 0.5 mg was given. Xanax 0.25 twice a day along with Ativan 0.5 IV every 6 hours ordered for the patient. Vitals were evaluated patient pulse 129 [id number]. She was moved to the ICU. Precedex drip was initiated. Lopressor was initiated at 25 twice a day. Metoprolol tartrate 5 mg IV every 6 hours. Systolic blood pressure more than 160. Started chest x-ray was obtained and suggest stable bilateral consolidation suggestive of COVID-19 pneumonia. 09/12 patient is seen in the ICU is currently mechanically ventilated and sedated on vent settings of respiratory rate 36, tidal volume 375 FiO2 80% PEEP of 18.. Vital signs reviewed patient had a temp of 100.4 pulse 150 respiratory rate 36 oxygen saturation 95% on 80% on fio2 .'s labs are reviewed which patient had a d-dimer 1.84 that is increased to 14.3. Arterial Blood gas suggest ph 7.35, CO2 40, po2 62, . Her BMP suggest a sodium 135 potassium 3.7 chloride 112 bicarb 21 creatinine 1.57 for calcitonin is 3.5 CRP is increased from 8.78.2 LDH is increased to 2614. Patient remains on Pneumovax, propofol drip. Lovenox increased to 50 subcu twice a day. Patient received 2 L of IV fluids. Continue IV fluids at 100 mL/h. Bicarb drip discontinued patient initiated on Zosyn 3.375 every 8 hours. Continue insulin drip at 4 units per hour. Patient is currently in prone positioning 09/13: Patient evaluated in the ICU remains on Ventilation continues to be sedated, in prone position. Vent settings are respiratory rate 36, tidal vital 375, FiO2 70% PEEP of 18. ABG shows pO2 of 82, PCO2 of 39, pH is 7.19. Latest labs show WBC 11.1, hemoglobin 13.2, d-dimer still pending, but yesterday was up to 14.3. Creatinine up to 3.4, BUN 24 sodium 137, potassium 4.0. Patient's urine output has been low, nephrology on consult. Bicarb drip increased to 100 miles an hour, receiving another liter of normal saline, she did have a ultrasound that showed unremarkable bilateral kidneys. Repeat chest x-ray showed bilateral lung infiltrates that are stable. Anion gap has closed, will start Lantus 10 units at at bedtime Novolog every 6 hours. 09/14: Patient is seen in the ICU, still currently mechanically ventilated and sedated. She continues in the prone position. Her oxygen quickly drops if she is not in prone. Patient's kidney function has worsened. Laboratory values show creatinine of 4.87, BUN 33, LDH 2191, C-reactive protein 2.7. ABG shows pH 7.32, pO2 of 60, pCO2 43. Patient is making almost no urine overnight. Nephrology is following patient continues on cefepime for urinary tract infection, culture is still pending. Vascular has been consulted for placement of temporary hemodialysis catheter for plans for dialysis. Objective - Vital Signs Vital signs: Vital Signs Temp 98.2 F 09/14/20 08:00 Pulse 80 09/14/20 11:00 Resp 36 H 09/14/20 11:00 BP 90/39 09/14/20 07:00 Pulse Ox 91 L 09/14/20 11:00 Intake & Output 09/13/20 09/14/20 09/14/20 18:59 06:59 18:59 Intake Total 3013.513 2641.921 1053.100 Output Total 30 310 25 Balance 2983.513 2331.921 1028.100 Weight 116.3 kg Intake: IV 36 36 15 Pressure Bag 36 36 15 Sodium Chloride 0.9% 1, 0 000 ml @ 100 mls/hr IV . Q10H [facility] Rx#:[id number] Intake, IV Titration 2641.513 2161.921 873.100 Amount Calcium Gluconate 1 gm In 100 Sodium Chloride 0.9% 100 ml @ 100 mls/hr IVPB ONCE ONE Rx#:[id number] Calcium Gluconate 2 gm In 100 Sodium Chloride 0.9% 100 ml @ 100 mls/hr IVPB ONCE ONE Rx#:[id number] Cefepime 1 gm In Sodium 50 Chloride 0.9% 50 ml @ 12. 5 mls/hr IVPB Q12HR [facility] Rx#:[id number] Cisatracurium 200 mg In 182.747 186.85 Sodium Chloride 0.9% 180 ml @ 1 MCG/KG/MIN 6.015 mls/hr IV .Q24H [facility] Rx#: [id number] Dextrose 5% in Water 1, 1000 1650 250 000 ml @ 100 mls/hr IV . [id number] [facility] with Sodium Bicarb (1 Meq/ml) 150 ml Rx#:[id number] Insulin Regular 100 unit 29.643 In Sodium Chloride 0.9% 100 ml @ Per Protocol IV .Q0M [facility] Rx#:[id number] Insulin Regular 100 unit 34.559 80.446 86.995 In Sodium Chloride 0.9% 100 ml @ Per Protocol IV .Q0M [facility] Rx#:[id number] Sodium Chloride 0.9% 1, 100 000 ml @ 50 mls/hr IV . Q20H [facility] Rx#:[id number] Sodium Chloride 0.9% 1, 1000 000 ml @ 999 mls/hr IV . Q1H1M [facility] Rx#:[id number] fentaNYL (PF). 1,000 mcg 19.13 48.61 In Sodium Chloride 0.9% 80 ml @ Per Protocol IV . Q0M [facility] Rx#:[id number] propofoL 1,000 mg In 275.434 282.865 199.255 Empty Bag 1 bag @ Titrate IV .Q0M [facility] Rx#: [id number] Tube Feeding 216 324 135 Other 120 120 30 Output: Urine 30 10 25 Other 300 Other: Voiding Method Indwelling Catheter Indwelling Catheter Indwelling Catheter ABP, PAP, CO, CI - Last Documented Arterial Blood Pressure 128/66 - Exam - Constitutional General appearance: intubated and sedated, in prone position, obese - Neck Neck: normal ROM - Respiratory Respiratory: bilateral decreased air entry, Minimal chest retractions noted - Cardiovascular Rhythm sinus tachycardia Heart sounds: normal: S1, S2 - Gastrointestinal General gastrointestinal: Nondistended - Integumentary Integumentary: no rash - Neurologic Neurologic: No gross motor deficit - Musculoskeletal Musculoskeletal: Sedated - Psychiatric Psychiatric: Sedated - Labs CBC & Chem 7: 09/14/20 05:20 09/14/20 05:20 Labs: Abnormal Lab Results - Last 24 Hours (Table) 09/13/20 09/13/20 09/13/20 Range/Units 15:34 16:19 17:00 Hgb (11.4-16.0) gm/dL Neutrophils # (1.3-7.7) k/uL D-Dimer (<0.60) mg/L FEU ABG pH (7.35-7.45) ABG pO2 (83-108) mmHg ABG O2 Saturation (94-97) % Chloride (98-107) mmol/L Carbon Dioxide (22-30) mmol/L BUN (7-17) mg/dL Creatinine (0.52-1.04) mg/dL Glucose (74-99) mg/dL POC Glucose (mg/dL) 285 H (75-99) mg/dL Calcium (8.4-10.2) mg/dL Ferritin 918.4 H (10.0-291.0) ng/mL Lactate Dehydrogenase (313-618) U/L C-Reactive Protein 3.7 H (<1.0) mg/dL Procalcitonin (0.02-0.09) ng/mL Urine Appearance Cloudy H (Clear) Urine Protein 3+ H (Negative) Urine Glucose (UA) 2+ H (Negative) Urine Ketones Trace H (Negative) Urine Blood Moderate H (Negative) Ur Leukocyte Esterase Small H (Negative) Urine RBC 16 H (0-5) /hpf Urine WBC 43 H (0-5) /hpf Urine Bacteria Occasional H (None) /hpf 09/13/20 09/13/20 09/13/20 Range/Units 17:00 17:00 17:07 Hgb (11.4-16.0) gm/dL Neutrophils # (1.3-7.7) k/uL D-Dimer (<0.60) mg/L FEU ABG pH (7.35-7.45) ABG pO2 (83-108) mmHg ABG O2 Saturation (94-97) % Chloride 110 H (98-107) mmol/L Carbon Dioxide 18 L (22-30) mmol/L BUN 30 H (7-17) mg/dL Creatinine 3.93 H (0.52-1.04) mg/dL Glucose 372 H (74-99) mg/dL POC Glucose (mg/dL) 359 H (75-99) mg/dL Calcium 6.0 L* (8.4-10.2) mg/dL Ferritin (10.0-291.0) ng/mL Lactate Dehydrogenase (313-618) U/L C-Reactive Protein (<1.0) mg/dL Procalcitonin 23.51 H (0.02-0.09) ng/mL Urine Appearance (Clear) Urine Protein (Negative) Urine Glucose (UA) (Negative) Urine Ketones (Negative) Urine Blood (Negative) Ur Leukocyte Esterase (Negative) Urine RBC (0-5) /hpf Urine WBC (0-5) /hpf Urine Bacteria (None) /hpf 09/13/20 09/13/20 09/13/20 Range/Units 17:53 18:47 19:50 Hgb (11.4-16.0) gm/dL Neutrophils # (1.3-7.7) k/uL D-Dimer (<0.60) mg/L FEU ABG pH (7.35-7.45) ABG pO2 (83-108) mmHg ABG O2 Saturation (94-97) % Chloride (98-107) mmol/L Carbon Dioxide (22-30) mmol/L BUN (7-17) mg/dL Creatinine (0.52-1.04) mg/dL Glucose (74-99) mg/dL POC Glucose (mg/dL) 307 H 359 H 332 H (75-99) mg/dL Calcium (8.4-10.2) mg/dL Ferritin (10.0-291.0) ng/mL Lactate Dehydrogenase (313-618) U/L C-Reactive Protein (<1.0) mg/dL Procalcitonin (0.02-0.09) ng/mL Urine Appearance (Clear) Urine Protein (Negative) Urine Glucose (UA) (Negative) Urine Ketones (Negative) Urine Blood (Negative) Ur Leukocyte Esterase (Negative) Urine RBC (0-5) /hpf Urine WBC (0-5) /hpf Urine Bacteria (None) /hpf 09/13/20 09/14/20 09/14/20 Range/Units 22:19 00:13 01:45 Hgb (11.4-16.0) gm/dL Neutrophils # (1.3-7.7) k/uL D-Dimer (<0.60) mg/L FEU ABG pH (7.35-7.45) ABG pO2 (83-108) mmHg ABG O2 Saturation (94-97) % Chloride (98-107) mmol/L Carbon Dioxide (22-30) mmol/L BUN (7-17) mg/dL Creatinine (0.52-1.04) mg/dL Glucose (74-99) mg/dL POC Glucose (mg/dL) 287 H 257 H 265 H (75-99) mg/dL Calcium (8.4-10.2) mg/dL Ferritin (10.0-291.0) ng/mL Lactate Dehydrogenase (313-618) U/L C-Reactive Protein (<1.0) mg/dL Procalcitonin (0.02-0.09) ng/mL Urine Appearance (Clear) Urine Protein (Negative) Urine Glucose (UA) (Negative) Urine Ketones (Negative) Urine Blood (Negative) Ur Leukocyte Esterase (Negative) Urine RBC (0-5) /hpf Urine WBC (0-5) /hpf Urine Bacteria (None) /hpf 09/14/20 09/14/20 09/14/20 Range/Units 04:08 05:20 05:20 Hgb (11.4-16.0) gm/dL Neutrophils # (1.3-7.7) k/uL D-Dimer 7.36 H (<0.60) mg/L FEU ABG pH (7.35-7.45) ABG pO2 (83-108) mmHg ABG O2 Saturation (94-97) % Chloride (98-107) mmol/L Carbon Dioxide (22-30) mmol/L BUN 33 H (7-17) mg/dL Creatinine 4.87 H (0.52-1.04) mg/dL Glucose 214 H (74-99) mg/dL POC Glucose (mg/dL) 209 H (75-99) mg/dL Calcium 6.7 L (8.4-10.2) mg/dL Ferritin (10.0-291.0) ng/mL Lactate Dehydrogenase 2191 H (313-618) U/L C-Reactive Protein 2.7 H (<1.0) mg/dL Procalcitonin (0.02-0.09) ng/mL Urine Appearance (Clear) Urine Protein (Negative) Urine Glucose (UA) (Negative) Urine Ketones (Negative) Urine Blood (Negative) Ur Leukocyte Esterase (Negative) Urine RBC (0-5) /hpf Urine WBC (0-5) /hpf Urine Bacteria (None) /hpf 09/14/20 09/14/20 09/14/20 Range/Units 05:20 05:25 05:53 Hgb 11.3 L (11.4-16.0) gm/dL Neutrophils # 8.0 H (1.3-7.7) k/uL D-Dimer (<0.60) mg/L FEU ABG pH 7.32 L (7.35-7.45) ABG pO2 60 L (83-108) mmHg ABG O2 Saturation 91.8 L (94-97) % Chloride (98-107) mmol/L Carbon Dioxide (22-30) mmol/L BUN (7-17) mg/dL Creatinine (0.52-1.04) mg/dL Glucose (74-99) mg/dL POC Glucose (mg/dL) 205 H (75-99) mg/dL Calcium (8.4-10.2) mg/dL Ferritin (10.0-291.0) ng/mL Lactate Dehydrogenase (313-618) U/L C-Reactive Protein (<1.0) mg/dL Procalcitonin (0.02-0.09) ng/mL Urine Appearance (Clear) Urine Protein (Negative) Urine Glucose (UA) (Negative) Urine Ketones (Negative) Urine Blood (Negative) Ur Leukocyte Esterase (Negative) Urine RBC (0-5) /hpf Urine WBC (0-5) /hpf Urine Bacteria (None) /hpf 09/14/20 09/14/20 09/14/20 Range/Units 07:50 08:59 10:34 Hgb (11.4-16.0) gm/dL Neutrophils # (1.3-7.7) k/uL D-Dimer (<0.60) mg/L FEU ABG pH (7.35-7.45) ABG pO2 (83-108) mmHg ABG O2 Saturation (94-97) % Chloride (98-107) mmol/L Carbon Dioxide (22-30) mmol/L BUN (7-17) mg/dL Creatinine (0.52-1.04) mg/dL Glucose (74-99) mg/dL POC Glucose (mg/dL) 170 H 155 H 212 H (75-99) mg/dL Calcium (8.4-10.2) mg/dL Ferritin (10.0-291.0) ng/mL Lactate Dehydrogenase (313-618) U/L C-Reactive Protein (<1.0) mg/dL Procalcitonin (0.02-0.09) ng/mL Urine Appearance (Clear) Urine Protein (Negative) Urine Glucose (UA) (Negative) Urine Ketones (Negative) Urine Blood (Negative) Ur Leukocyte Esterase (Negative) Urine RBC (0-5) /hpf Urine WBC (0-5) /hpf Urine Bacteria (None) /hpf 09/14/20 09/14/20 09/14/20 Range/Units 11:51 12:06 13:19 Hgb (11.4-16.0) gm/dL Neutrophils # (1.3-7.7) k/uL D-Dimer (<0.60) mg/L FEU ABG pH (7.35-7.45) ABG pO2 (83-108) mmHg ABG O2 Saturation (94-97) % Chloride (98-107) mmol/L Carbon Dioxide (22-30) mmol/L BUN (7-17) mg/dL Creatinine (0.52-1.04) mg/dL Glucose (74-99) mg/dL POC Glucose (mg/dL) 225 H 194 H 222 H (75-99) mg/dL Calcium (8.4-10.2) mg/dL Ferritin (10.0-291.0) ng/mL Lactate Dehydrogenase (313-618) U/L C-Reactive Protein (<1.0) mg/dL Procalcitonin (0.02-0.09) ng/mL Urine Appearance (Clear) Urine Protein (Negative) Urine Glucose (UA) (Negative) Urine Ketones (Negative) Urine Blood (Negative) Ur Leukocyte Esterase (Negative) Urine RBC (0-5) /hpf Urine WBC (0-5) /hpf Urine Bacteria (None) /hpf Microbiology - Last 24 Hours (Table) 09/12/20 11:11 Blood Culture - Preliminary Blood No Growth after 48 hours 09/12/20 11:11 Blood Culture - Preliminary Blood No Growth after 48 hours 09/13/20 15:34 Urine Culture - Preliminary Urine,Voided 09/11/20 Unknown Gram Stain - Final Sputum Sputum Culture - Final Assessment and Plan Plan: #1 acute diabetes ketoacidosis secondary to COVID pneumonia. Status post 3 L IV bolus. Anion gap closed. Continue to hold metformin and Januvia, will wean off the insulin drip and switch to subcu NovoLog and Levemir. Continue monitoring e lectrolytes. Normal saline to be continued at 100 mL/h with bicarbonate drip per pulmonary. #2 acute hypoxic respiratory failure secondary to COVID pneumonia with possible bacterial pneumonia. Intubated on 09/11 Dexamethasone 6 mg IV twice a day continue vitamin C, vitamin D and zinc. Pro-air inhaler every 6 hours. Pulmicort twice daily. Status post Remdesivir and 1 dose of Tocilizumab. #3 acute metabolic acidosis with respiratory alkalosis secondary to DKA. Continue normal saline at 100 mL per hour in addition to D5W with bicarb to help with anion gap. Repeat ABG as needed #4 sepsis secondary to COVID 19 pneumonia pro-calcitonin high cannot exclude bacterial pneumonia. Chest x-ray suggestive of COVID-19 pneumonia. #5 type 2 uncontrolled diabetes A1c of 13.6 on metformin and Januvia as outpatient. Metformin and Januvia on hold continue insulin drip for now #6 anxiety status post Ativan with minimal improvement currently on Precedex drip #7 hypophosphatemia status post phosphate replacement #8 hyperkalemia secondary to DKA. Continue to watch for hypokalemia. will add potassium to patient normal saline #9 sinus tachycardia secondary to volume deficiency. Continue normal saline at 100 mL per hour. #10 hypertension metoprolol initiated with the twice a day. #9 DVT prophylaxis Lovenox 40 subcu daily #10 GI prophylaxis pantoprazole 40 daily #11 CODE STATUS full code The above impression and plan of care have been discussed and directed by signing physician. Montse Salgado nurse practitioner acting as scribe for signing physician.
[2020-09-14 14:20] LABS: Glucose,Whole Blood 274 mg/dL (75-99)
[2020-09-14 15:09] LABS: Glucose,Whole Blood 216 mg/dL (75-99)
[2020-09-14 15:45] LABS: Glucose,Whole Blood 222 mg/dL (75-99)
--- NOTE | 2020-09-14 16:39 | P.OP ---
Date of Procedure: 09/14/20 Preoperative Diagnosis: Acute renal failure requiring dialysis. Postoperative Diagnosis: Same. Procedure(s) Performed: #1: Ultrasound CANNULATION RIGHT INTERNAL JUGULAR VEIN. #2: Placement of a non-tunneled hemodialysis catheter via the right internal jugular vein Anesthesia: none Heating Element Builder #1: Bruno Albarran Estimated Blood Loss (ml): 3 Pathology: none sent Condition: stable Indications for Procedure: Patient is a 36-year-old female who is being treated for related respiratory failure who is now in renal failure and requires hemodialysis. Patient is offered non-tunneled hemodialysis catheter for urgent dialysis purposes. Description of Procedure: Patient was placed Keron in her bed. The head of bed was placed in approximately 10-15 of elevation. The right lateral neck was sterilely prepped and draped in usual manner. Utilizing ultrasound the internal jugular vein was identified. This was found to be normally patent, compressible and free of visible thrombus. A multipurpose needle was utilized to cannulate the vein under ultrasound guidance. Once cannulated Softip guidewire is advanced into the vein. The needle was withdrawn. Small skin neck at the site of wire insertion site was made area vessel dilators advanced and withdrawn from over the guidewire. A non-tunneled hemodialysis cath was advanced over the guidewire. Guidewire was withdrawn and the catheter advanced to its hub. Both ports demonstrated easy aspiration of blood and were then flushed with heparinized saline solution absent were applied. Catheter was secured to skin with silk suture and appropriate dressings were applied. Chest x-ray was obtained which demonstrated catheter to be in good anatomic position without evidence of pneumothorax.
--- NOTE | 2020-09-14 16:43 | XR ---
EXAMINATION TYPE: XR chest 1V portable DATE OF EXAM: 09/14/2020 COMPARISON: Comparison is made to chest x-ray from 09/13/2020. HISTORY: Vented patient. Shortness of breath. TECHNIQUE: Single frontal view of the chest is obtained. FINDINGS: Endotracheal tube and nasogastric tube are in stable position. Interval placement of a tem porary dialysis catheter on the right side with the tip in the SVC atrial junction. There is no pneumothorax. Multifocal airspace opacities are noted. IMPRESSION: Multifocal airspace opacities are increased. No pneumothorax.
[2020-09-14 17:49] LABS: Glucose,Whole Blood 210 mg/dL (75-99)
[2020-09-14 19:01] LABS: Glucose,Whole Blood 266 mg/dL (75-99)
[2020-09-14] MEDS: NOREPINEPHRINE 8 MG in SODIUM CHLORIDE 0.9% 250 ML IV SCH (20:24)
[2020-09-14 20:44] LABS: Glucose,Whole Blood 143 mg/dL (75-99)
[2020-09-14 22:35] LABS: Glucose,Whole Blood 148 mg/dL (75-99)
[2020-09-14 23:54] LABS: Glucose,Whole Blood 146 mg/dL (75-99)
[2020-09-15 02:04] LABS: Glucose,Whole Blood 137 mg/dL (75-99)
[2020-09-15 04:15] LABS: Glucose,Whole Blood 108 mg/dL (75-99)
[2020-09-15 05:13] LABS: Glucose,Whole Blood 132 mg/dL (75-99)
[2020-09-15 05:43] LABS: ABG Base Excess -1.2 mmol/L; ABG HCO3 25 mmol/L (21-25); ABG PCO2 45 mmHg (35-45); ABG PH 7.35 (7.35-7.45); ABG TCO2 26 mmol/L (19-24); Allen Test Performed? Yes
[2020-09-15 05:46] LABS: ABG PO2 58 mmHg (83-108)
[2020-09-15 05:47] LABS: Calcium 6.9 mg/dL (8.4-10.2); Potassium 3.6 mmol/L (3.5-5.1)
[2020-09-15 06:10] LABS: Basophils # (A) 0.1 k/uL (0-0.2); Basophils % (A) 1 %; Eosinophils % (A) 0 %; HCT 34.5 % (34.0-46.0); HGB 11.3 gm/dL (11.4-16.0); Lymphocytes # (A) 1.3 k/uL (1.0-4.8); Lymphocytes % (A) 13 %; MCH 27.2 pg (25.0-35.0); MCHC 32.7 g/dL (31.0-37.0); MCV 83.4 fL (80.0-100.0); Mean Platelet Volume 8.9; Monocytes # (A) 0.6 k/uL (0-1.0); Monocytes % (A) 7 %; Neutrophils # (A) 7.5 k/uL (1.3-7.7); Neutrophils % (A) 76 %; Platelet Count 223 k/uL (150-450); Poikilocytosis Slight; RBC 4.13 m/uL (3.80-5.40); RDW 14.4 % (11.5-15.5); WBC 9.9 k/uL (3.8-10.6)
[2020-09-15 06:37] LABS: Glucose,Whole Blood 130 mg/dL (75-99)
--- NOTE | 2020-09-15 07:43 | XR ---
EXAMINATION TYPE: XR chest 1V portable DATE OF EXAM: 09/15/2020 COMPARISON: 09/14/2020. HISTORY: Vented patient. TECHNIQUE: Single frontal view of the chest is obtained. FINDINGS: Endotracheal tube, nasogastric tube, and right-sided central line remains stable position. Bilateral airspace opacities are again noted. No significant pleural effusion. No pneumothorax. IMPRESSION: ARDS. No significant change.
[2020-09-15] MEDS: SODIUM CHLORIDE 0.9% 1,000 ML IV SCH (07:58)
[2020-09-15] MEDS: ALBUTEROL HFA INHALER INHALATION SCH ×4 (07:59→22:45)
[2020-09-15] MEDS: SYMBICORT 160-4.5 MCG INHALER INHALATION SCH ×2 (08:03→22:46)
[2020-09-15] MEDS: ASCORBIC ACID 500 MG TAB PO SCH ×2 (08:17→21:45)
[2020-09-15] MEDS: DEXAMETHASONE SOD PHOSPHATE 10 MG/ML 1 ML VIAL IV SCH ×2 (08:17→21:44)
[2020-09-15] MEDS: CHLORHEXIDINE GLUCONATE 15 ML CUP MUCOUS MEM SCH ×2 (08:17→21:44)
[2020-09-15] MEDS: PANTOPRAZOLE 40 MG/10 ML VIAL IVP SCH (08:17)
[2020-09-15] MEDS: SODIUM BICARBONATE TAB 650 MG TAB PO SCH ×3 (08:17→21:45)
[2020-09-15] MEDS: ZINC SULFATE 220 MG CAP PO SCH (08:17)
[2020-09-15] MEDS: CHOLECALCIFEROL 25 MCG (1000 IU) TABLET PO SCH (08:17)
[2020-09-15] MEDS: METOPROLOL TARTRATE 25 MG TAB PO SCH ×2 (08:17→21:44)
[2020-09-15] MEDS: ENOXAPARIN 60 MG/0.6 ML SYRINGE SQ SCH (08:20)
[2020-09-15] MEDS: CEFEPIME 1 GM in SODIUM CHLORIDE 0.9% 50 ML IVPB SCH ×2 (08:20→21:45)
[2020-09-15 09:10] LABS: Glucose,Whole Blood 111 mg/dL (75-99)
--- NOTE | 2020-09-15 09:12 | P.PN ---
Subjective Progress Note Date: 09/15/20 Principal diagnosis: Acute kidney injury, hemodialysis placement Patient is seen lying in the ICU. She remained sedated and on mechanical ventilation. Yesterday she underwent a ultrasound guided right internal jugular vein non-tunneled hemodialysis catheter placement. She is currently undergoing hemodialysis treatment without any difficulty. Hemodialysis nurse states that it is running good. Objective - Vital Signs Vital signs: Vital Signs Temp 98.3 F 09/15/20 04:00 Pulse 79 09/15/20 07:00 Resp 36 H 09/15/20 07:00 BP 90/39 09/15/20 07:00 Pulse Ox 94 L 09/15/20 07:00 Intake & Output 09/14/20 09/15/20 09/15/20 18:59 06:59 18:59 Intake Total 2307.501 1299.633 Output Total 55 0 Balance 2252.501 1299.633 Weight 116.3 kg 117.5 kg Intake: IV 36 39 Pressure Bag 36 39 Intake, IV Titration 1857.501 852.633 Amount Cefepime 1 gm In Sodium 50 Chloride 0.9% 50 ml @ 12. 5 mls/hr IVPB Q12HR [facility] Rx#:[id number] Cisatracurium 200 mg In 186.85 186.45 Sodium Chloride 0.9% 180 ml @ 1 MCG/KG/MIN 6.015 mls/hr IV .Q24H [facility] Rx#: [id number] Dextrose 5% in Water 1, 250 000 ml @ 100 mls/hr IV . [id number] [facility] with Sodium Bicarb (1 Meq/ml) 150 ml Rx#:[id number] Insulin Regular 100 unit 113.828 116.183 In Sodium Chloride 0.9% 100 ml @ Per Protocol IV .Q0M [facility] Rx#:[id number] Sodium Chloride 0.9% 1, 905 150 000 ml @ 50 mls/hr IV . Q20H [facility] Rx#:[id number] fentaNYL (PF). 1,000 mcg 100 In Sodium Chloride 0.9% 80 ml @ Per Protocol IV . Q0M [facility] Rx#:[id number] propofoL 1,000 mg In 351.823 300 Empty Bag 1 bag @ Titrate IV .Q0M [facility] Rx#: [id number] Tube Feeding 324 378 Other 90 30 Output: Urine 55 0 Hemodialysis 0 Other: Voiding Method Indwelling Catheter Indwelling Catheter ABP, PAP, CO, CI - Last Documented Arterial Blood Pressure 100/63 - Exam General appearance: The patient is sedated on mechanical ventilation. HET: Head is normocephalic and atraumatic. Neck: Supple without lymphadenopathy. Trachea midline. Hemodialysis catheter clean, dry, and intact. Neurological: Patient is sedated on mechanical ventilation. - Labs CBC & Chem 7: 09/15/20 05:15 09/15/20 05:15 Labs: Abnormal Lab Results - Last 24 Hours (Table) 09/14/20 09/14/20 09/14/20 Range/Units 08:59 10:34 11:51 Hgb (11.4-16.0) gm/dL ABG pO2 (83-108) mmHg ABG Total CO2 (19-24) mmol/L ABG O2 Saturation (94-97) % Sodium (137-145) mmol/L BUN (7-17) mg/dL Creatinine (0.52-1.04) mg/dL Glucose (74-99) mg/dL POC Glucose (mg/dL) 155 H 212 H 225 H (75-99) mg/dL Calcium (8.4-10.2) mg/dL 09/14/20 09/14/20 09/14/20 Range/Units 12:06 13:19 14:19 Hgb (11.4-16.0) gm/dL ABG pO2 (83-108) mmHg ABG Total CO2 (19-24) mmol/L ABG O2 Saturation (94-97) % Sodium (137-145) mmol/L BUN (7-17) mg/dL Creatinine (0.52-1.04) mg/dL Glucose (74-99) mg/dL POC Glucose (mg/dL) 194 H 222 H 274 H (75-99) mg/dL Calcium (8.4-10.2) mg/dL 09/14/20 09/14/20 09/14/20 Range/Units 15:07 15:43 17:48 Hgb (11.4-16.0) gm/dL ABG pO2 (83-108) mmHg ABG Total CO2 (19-24) mmol/L ABG O2 Saturation (94-97) % Sodium (137-145) mmol/L BUN (7-17) mg/dL Creatinine (0.52-1.04) mg/dL Glucose (74-99) mg/dL POC Glucose (mg/dL) 216 H 222 H 210 H (75-99) mg/dL Calcium (8.4-10.2) mg/dL 09/14/20 09/14/20 09/14/20 Range/Units 18:59 20:42 22:33 Hgb (11.4-16.0) gm/dL ABG pO2 (83-108) mmHg ABG Total CO2 (19-24) mmol/L ABG O2 Saturation (94-97) % Sodium (137-145) mmol/L BUN (7-17) mg/dL Creatinine (0.52-1.04) mg/dL Glucose (74-99) mg/dL POC Glucose (mg/dL) 266 H 143 H 148 H (75-99) mg/dL Calcium (8.4-10.2) mg/dL 09/14/20 09/15/20 09/15/20 Range/Units 23:52 02:02 04:13 Hgb (11.4-16.0) gm/dL ABG pO2 (83-108) mmHg ABG Total CO2 (19-24) mmol/L ABG O2 Saturation (94-97) % Sodium (137-145) mmol/L BUN (7-17) mg/dL Creatinine (0.52-1.04) mg/dL Glucose (74-99) mg/dL POC Glucose (mg/dL) 146 H 137 H 108 H (75-99) mg/dL Calcium (8.4-10.2) mg/dL 09/15/20 09/15/20 09/15/20 Range/Units 05:12 05:15 05:15 Hgb 11.3 L (11.4-16.0) gm/dL ABG pO2 (83-108) mmHg ABG Total CO2 (19-24) mmol/L ABG O2 Saturation (94-97) % Sodium 134 L (137-145) mmol/L BUN 34 H (7-17) mg/dL Creatinine 4.78 H (0.52-1.04) mg/dL Glucose 132 H (74-99) mg/dL POC Glucose (mg/dL) 132 H (75-99) mg/dL Calcium 6.9 L (8.4-10.2) mg/dL 09/15/20 09/15/20 Range/Units 05:37 06:36 Hgb (11.4-16.0) gm/dL ABG pO2 58 L* (83-108) mmHg ABG Total CO2 26 H (19-24) mmol/L ABG O2 Saturation 90.0 L (94-97) % Sodium (137-145) mmol/L BUN (7-17) mg/dL Creatinine (0.52-1.04) mg/dL Glucose (74-99) mg/dL POC Glucose (mg/dL) 130 H (75-99) mg/dL Calcium (8.4-10.2) mg/dL Microbiology - Last 24 Hours (Table) 09/13/20 15:34 Urine Culture - Final Urine,Voided 09/12/20 11:11 Blood Culture - Preliminary Blood No Growth after 48 hours 09/12/20 11:11 Blood Culture - Preliminary Blood No Growth after 48 hours Assessment and Plan Assessment: 1. Acute kidney injury status post non-tunneled right internal jugular vein hemodialysis catheter 2. COVID-19 pneumonitis 3. Acute respiratory hypoxia on mechanical ventilation 4. Diabetes mellitus Plan: 1. Patient is status post right internal jugular vein non-tunneled hemodialysis catheter 2. Proceed with hemodialysis as ordered per nephrology 3. Continue ICU medical management Thank you for this consultation, we will sign off at this time The impression and plan of care has been dictated as directed. Dr. Albarran I performed a history and examination of this patient, discussed the same with the dictator. I agree with the dictator's note ,documented as a scribe. Any additional findings or plans will be noted.
--- NOTE | 2020-09-15 10:54 | P.PN ---
Subjective Patient is seen in follow-up for acute kidney injury. Started on hemodialysis September 14. Oliguric. Intubated. Not on vasopressors. Tolerating dialysis well. Vital signs are stable. General: The patient appeared well nourished and normally developed. HEENT: Intubated. LUNGS: Breath sounds decreased. HEART: Rate and Rhythm. Abdomen: Soft, no distention. EXTREMITITES: Trace edema. Objective - Vital Signs Vital signs: Vital Signs Temp 97.5 F L 09/15/20 10:34 Pulse 77 09/15/20 10:34 Resp 36 H 09/15/20 10:34 BP 120/60 09/15/20 10:34 Pulse Ox 95 09/15/20 10:00 Intake & Output 09/14/20 09/15/20 09/15/20 18:59 06:59 18:59 Intake Total 2307.501 1299.633 341.245 Output Total 55 0 523 Balance 2252.501 1299.633 -181.755 Weight 116.3 kg 117.5 kg Intake: IV 36 39 159 Pressure Bag 36 39 9 Sodium Chloride 0.9% 1, 150 000 ml @ 50 mls/hr IV . Q20H [facility] Rx#:[id number] Intake, IV Titration 1857.501 852.633 11.245 Amount Cefepime 1 gm In Sodium 50 Chloride 0.9% 50 ml @ 12. 5 mls/hr IVPB Q12HR [facility] Rx#:[id number] Cisatracurium 200 mg In 186.85 186.45 Sodium Chloride 0.9% 180 ml @ 1 MCG/KG/MIN 6.015 mls/hr IV .Q24H [facility] Rx#: [id number] Dextrose 5% in Water 1, 250 000 ml @ 100 mls/hr IV . [id number] [facility] with Sodium Bicarb (1 Meq/ml) 150 ml Rx#:[id number] Insulin Regular 100 unit 113.828 116.183 11.245 In Sodium Chloride 0.9% 100 ml @ Per Protocol IV .Q0M [facility] Rx#:[id number] Sodium Chloride 0.9% 1, 905 150 000 ml @ 50 mls/hr IV . Q20H [facility] Rx#:[id number] fentaNYL (PF). 1,000 mcg 100 In Sodium Chloride 0.9% 80 ml @ Per Protocol IV . Q0M [facility] Rx#:[id number] propofoL 1,000 mg In 351.823 300 Empty Bag 1 bag @ Titrate IV .Q0M [facility] Rx#: [id number] Tube Feeding 324 378 81 Other 90 30 90 Output: Urine 55 0 23 Hemodialysis 0 500 Other: Voiding Method Indwelling Catheter Indwelling Catheter Indwelling Catheter ABP, PAP, CO, CI - Last Documented Arterial Blood Pressure 110/60 - Labs CBC & Chem 7: 09/15/20 05:15 09/15/20 05:15 Labs: Abnormal Lab Results - Last 24 Hours (Table) 09/14/20 09/14/20 09/14/20 Range/Units 11:51 12:06 13:19 Hgb (11.4-16.0) gm/dL ABG pO2 (83-108) mmHg ABG Total CO2 (19-24) mmol/L ABG O2 Saturation (94-97) % Sodium (137-145) mmol/L BUN (7-17) mg/dL Creatinine (0.52-1.04) mg/dL Glucose (74-99) mg/dL POC Glucose (mg/dL) 225 H 194 H 222 H (75-99) mg/dL Calcium (8.4-10.2) mg/dL 09/14/20 09/14/20 09/14/20 Range/Units 14:19 15:07 15:43 Hgb (11.4-16.0) gm/dL ABG pO2 (83-108) mmHg ABG Total CO2 (19-24) mmol/L ABG O2 Saturation (94-97) % Sodium (137-145) mmol/L BUN (7-17) mg/dL Creatinine (0.52-1.04) mg/dL Glucose (74-99) mg/dL POC Glucose (mg/dL) 274 H 216 H 222 H (75-99) mg/dL Calcium (8.4-10.2) mg/dL 09/14/20 09/14/20 09/14/20 Range/Units 17:48 18:59 20:42 Hgb (11.4-16.0) gm/dL ABG pO2 (83-108) mmHg ABG Total CO2 (19-24) mmol/L ABG O2 Saturation (94-97) % Sodium (137-145) mmol/L BUN (7-17) mg/dL Creatinine (0.52-1.04) mg/dL Glucose (74-99) mg/dL POC Glucose (mg/dL) 210 H 266 H 143 H (75-99) mg/dL Calcium (8.4-10.2) mg/dL 09/14/20 09/14/20 09/15/20 Range/Units 22:33 23:52 02:02 Hgb (11.4-16.0) gm/dL ABG pO2 (83-108) mmHg ABG Total CO2 (19-24) mmol/L ABG O2 Saturation (94-97) % Sodium (137-145) mmol/L BUN (7-17) mg/dL Creatinine (0.52-1.04) mg/dL Glucose (74-99) mg/dL POC Glucose (mg/dL) 148 H 146 H 137 H (75-99) mg/dL Calcium (8.4-10.2) mg/dL 09/15/20 09/15/20 09/15/20 Range/Units 04:13 05:12 05:15 Hgb 11.3 L (11.4-16.0) gm/dL ABG pO2 (83-108) mmHg ABG Total CO2 (19-24) mmol/L ABG O2 Saturation (94-97) % Sodium (137-145) mmol/L BUN (7-17) mg/dL Creatinine (0.52-1.04) mg/dL Glucose (74-99) mg/dL POC Glucose (mg/dL) 108 H 132 H (75-99) mg/dL Calcium (8.4-10.2) mg/dL 09/15/20 09/15/20 09/15/20 Range/Units 05:15 05:37 06:36 Hgb (11.4-16.0) gm/dL ABG pO2 58 L* (83-108) mmHg ABG Total CO2 26 H (19-24) mmol/L ABG O2 Saturation 90.0 L (94-97) % Sodium 134 L (137-145) mmol/L BUN 34 H (7-17) mg/dL Creatinine 4.78 H (0.52-1.04) mg/dL Glucose 132 H (74-99) mg/dL POC Glucose (mg/dL) 130 H (75-99) mg/dL Calcium 6.9 L (8.4-10.2) mg/dL 09/15/20 Range/Units 09:09 Hgb (11.4-16.0) gm/dL ABG pO2 (83-108) mmHg ABG Total CO2 (19-24) mmol/L ABG O2 Saturation (94-97) % Sodium (137-145) mmol/L BUN (7-17) mg/dL Creatinine (0.52-1.04) mg/dL Glucose (74-99) mg/dL POC Glucose (mg/dL) 111 H (75-99) mg/dL Calcium (8.4-10.2) mg/dL Microbiology - Last 24 Hours (Table) 09/13/20 15:34 Urine Culture - Final Urine,Voided 09/12/20 11:11 Blood Culture - Preliminary Blood No Growth after 48 hours 09/12/20 11:11 Blood Culture - Preliminary Blood No Growth after 48 hours Assessment and Plan Plan: Assessment: 1. Acute kidney injury secondary to ATN secondary to COVID-19 and DKA. Baseline creatinine is near 1 and peaked at 4.87 on September 14. Started on hemodialysis on September 14. Oliguric. No hydronephrosis noted on kidney ultras ound. 2. DKA s/p insulin drip and IV fluids. 3. Acute hypoxic respiratory failure secondary to COVID-19 pneumonia. Intubated. 4. Metabolic acidosis secondary to acute kidney injury and DKA s/p bicarb drip. Improved. Now on oral bicarbonate. 5. Hypocalcemia secondary to acute kidney injury. Status post replacement. Better. Plan: Currently seen while undergoing hemodialysis. Another treatment tomorrow. Maintain tube feeds. Status post IV Lasix september 13 with no response in urine output. Avoid nephrotoxins. Continue to monitor renal function and urine output. Monitor for renal recovery. Phos normal.
[2020-09-15 11:44] LABS: Glucose,Whole Blood 245 mg/dL (75-99)
[2020-09-15 13:11] LABS: Hepatitis B Surface AB- Quant >1000.0 mIU/mL; Hepatitis B Surface Antibody Reactive (Non-Reactive); Hepatitis B Surface Antigen Non-Reactive (Non-Reactive)
[2020-09-15 13:23] LABS: Glucose,Whole Blood 198 mg/dL (75-99)
--- NOTE | 2020-09-15 13:26 | P.PN ---
Subjective Progress Note Date: 09/15/20 Principal diagnosis: DKA, COVID-19 pneumonia This is a 55-year-old -[place] female with history of type 2 diabetes, admitted today through the emergency room with a few days' history of increased shortness of breath, cough, fever, chest x-ray in the ER showed bilateral i nfiltrates consistent with COVID-19 pneumonia in the patient had positive PCR for COVID-19 infection. Patient had significantly abnormal labs on admission, she had an extremely low bicarb, extremely low pH, and marginal oxygenation at best. Patient was admitted to the regular medical floor, and I happened to be rounding on that same floor were and I was notified about this patient having worsening respiratory distress. Evaluated the patient, clearly the patient has DKA and she clearly has acute hypoxic respiratory failure secondary to COVID-19 pneumonia. As soon as I laid eyes on the patient, recommended immediate transfer to the ICU. Patient was placed on BiPAP however she did not tolerate BiPAP well, and when I went back to evaluate the patient in the ICU, she was basically deteriorating, and she was using her accessory muscles, patient was in severe respiratory distress. Hence I recommended immediate intubation and placement on mechanical ventilation. Chest x-ray continued to show bilateral infiltrates consistent with worsening COVID-19 pneumonia ABG showed a pO2 of 59 pCO2 of 42 pH of 7.05 and this was on the 100% FiO2 20 of PEEP tidal volume of 375 rate of 36. Patient will be given more bicarb and she is already on a bicarb drip. She is receiving insulin and she is also receiving IV fluids in the form of 0.9 normal saline. Sugars were 384. Inflammatory markers were added to be extremely high, LDH 2048, and C-reactive protein of 8.7. D-dimer was borderline elevated at 1.84. On 09/12/2020 patient seen in follow-up in the intensive care unit, yesterday she was emergently transferred to the intensive care and intubated and placed on mechanical ventilator. She remains intubated, sedated on mechanical ventilator, currently on assist control mode of ventilation with a rate 36, tidal vital 375, FiO2 100% and PEEP of 20. This might blood gas reveals pO2 of 62, pCO2 40, pH of 7.35 this was done on FiO2 of 80%, her peak airway pressure is 35, in her plateau pressure is around 32. she is sedated on Diprivan and 60 mics per kilo per minute, 0.9 normal saline at 100 ML per hour, insulin drip is at 4 units per hour, and she has 5% dextrose with 3 units of bicarbonate at 100 ML per hour. Today's labs have been reviewed, showing white blood cell count 10.3, hemoglobin of 14.4, d-dimer has increased to 14.31, and her Lovenox was adjusted and increased to 50 mg twice daily, sodium is 137, potassium is 3.7, chloride is 112, CO2 is up to 21, BUN of 16 creatinine is 1.57, LDH is 2618, CRP is 18.2. Pro-Calcitonin level came back elevated at 3.53, suggesting possibility of bacterial infection She received a liter bolus yesterday after intubation. We w ill give the patient additional fluid boluses today. Sputum culture has been sent and is pending, blood cultures have been sent. Patient has been placed in prone position at 8:00 last night, and her oxygenation seems to be improved and she satting 97% on 100% FiO2 and subsequently FiO2 was dropped down to 80%, and PEEP is down to 18. She remains in prone positioning, tolerating it well, she is having low-grade fevers, she is in sinus mechanism with tachycardic on the monitor, not requiring any vasopressor support right now, will start tube feedings today when the patient is placed back over in the supine position On 09/13/2020 patient seen in follow-up in intensive care unit, she remains proned, and at the time of our evaluation patient has already been prone for close to 16 hours and is about to be turned back on her spine. She tolerates prone position quite well, she remains intubated, paralyzed and sedated on mechanical ventilator, current vent settings are assist-control mode of ventilation with a rate of 36, tidal volume 375, FiO2 of 70% and PEEP of 18, this point his blood gases show pO2 of 82, pCO2 of 39, and pH of 7.19. She's currently on D5 W with 3 A of bicarbonate at 75 per hour, Diprivan is a 60 mics per kilo per minute, index is at 2 mics per kilo per minute, and insulin drip is at 6 units per hour, patient has not started tube feedings yet. She is in sinus mechanism, hemodynamically stable, not requiring any vasopressor support. Today's chest x-ray has been reviewed showing bilateral lung infiltrates that appear to be stable. Today's labs have been reviewed showing white blood cell count of 11.1, hemoglobin 13.2, d-dimer is pending, yesterday his d-dimer was 14.3, patient's Lovenox dose was increased to 50 mg every 24 hours. Her renal function continued to worsen, and her creatinine is up to 3.4 on today's labs, BUN is 24, were bicarb concentration is only 13 on today's labs, sodium is 137, potassium is 4.0. AST is up to 77, ALT and alk phos are within normal limits, yesterday set him inflammatory markers with showing up trending LDH at 2618, and CRP of 18.2. Her pro-calcitonin level was increased yesterday at 3.53 and we added empiric antibiotics in the form of Zosyn. Sputum culture has been sent and has shown no growth. Overnight patient remained oliguric, yesterday we gave her additional fluids, however did not improve her renal function and her kidney function continued to get worse. Nephrology consultation has been requested, she has only been producing urine in the order of 5-10 ML per hour, renal ultrasound has been obtained showing no evidence of hydronephrosis bilaterally. On 09/14/2020 patient seen in follow-up in intensive care unit, she remains intubated, sedated and paralyzed, currently on assist control mode of ventilation with a rate of 36, tidal vital 375, FiO2 of 60% and PEEP of 18. This morning's blood gas was reviewed showing pO2 of 60, pCO2 of 43, and pH of 7.32. This was done on FiO2 of 70%, her peak airway pressure is 40, plateau pressures 26. She is currently on D5 with 3 A of bicarbonate at 100 ML per hour, insulin drip is at 7 units per hour, fentanyl drip is a 0.5 mics per kilo per hour, Diprivan and is at 50 mics per kilo per minute, and index is at 2 mics per kilo per minute. She is tolerating tube feedings of vital high-protein at 27 with a goal 27 standard water flushes. Today's chest x-ray has not been completed yet, because the patient has been in prone position for last 16 hours. Patient tolerates prone in quite well, and her oxygenation improves when she is in prone position. However when she is turned over in the supine position to complete chest x-rays and ADL's, patient's O2 sat drops down to low 80s and her FiO2 requirement increases at that time. Today's labs have been reviewed, and there has been further worsening of her renal function, and patient has made almost no urine overnight. Her BUN is 33, and creatinine is 4.87, nephrology is following, her renal ultrasound showed no evidence of hydronephrosis. Her urinalysis showed possibility of urinary tract infection, and patient has been started on cefepime. Urine culture is pending at this time, blood and sputum cultures have been negative. No fevers overnight, she's not requiring any vasopressor support. On 09/15/2020 patient seen in follow-up in intensive care unit, she remains intubated, sedated and paralyzed on assist-control mode of ventilation with a rate of 36, tidal vital 375, FiO2 100% and PEEP of 18, this morning's blood gas reviewed showing pO2 of 58, pCO2 of 45, and pH is 7.35, this was done on FiO2 of 100%. Her peak airway pressures 44, plateau pressures 38, she is on 0.9 normal saline at 50 ML per hour, Diprivan is a 40 mics per kilo per minute, Nimbex drip is a 2 mics per kilo per minute, and fentanyl drip at 0.5 mics per kilo per hour, she is tolerating tube feedings with vital high-protein is 27 with a goal of 27 standard water flushes. She is in sinus mechanism with a rate of 73, she is hemodynamically stable and not requiring any vasopressors. Today's chest x- ray shows ARDS, bilateral airspace opacities, no significant pleural effusion and no pneumothorax. Today's labs have been reviewed, white blood cell count is 9.9, hemoglobin is 11.3, sodium is 134, respiratory electrolytes were within normal limits, and there has been further worsening of her renal function with BUN of 34, creatinine is 4.78, her urine output has remained very poor. Last night she had her first hemodialysis session and no fluid was removed, this morning she is having another hemodialysis treatments and the goal is to remove half a liter of fluid. Her sputum, blood and urine cultures remained negative thus far, patient's pro-calcitonin level came back significantly elevated at 23.5 suggesting evidence of bacterial infection. Patient remains on cefepime for antibiotic coverage, she also remains on Decadron milligrams twice daily, and Lovenox is 50 mg every 24 hours. Objective - Vital Signs Vital signs: Vital Signs Temp 97.5 F L 09/15/20 10:34 Pulse 77 09/15/20 10:34 Resp 36 H 09/15/20 10:34 BP 120/60 09/15/20 10:34 Pulse Ox 95 09/15/20 10:00 Intake & Output 09/14/20 09/15/20 09/15/20 18:59 06:59 18:59 Intake Total 2307.501 1299.633 341.245 Output Total 55 0 523 Balance 2252.501 1299.633 -181.755 Weight 116.3 kg 117.5 kg 117.5 kg Intake: IV 36 39 159 Pressure Bag 36 39 9 Sodium Chloride 0.9% 1, 150 000 ml @ 50 mls/hr IV . Q20H [facility] Rx#:[id number] Intake, IV Titration 1857.501 852.633 11.245 Amount Cefepime 1 gm In Sodium 50 Chloride 0.9% 50 ml @ 12. 5 mls/hr IVPB Q12HR [facility] Rx#:[id number] Cisatracurium 200 mg In 186.85 186.45 Sodium Chloride 0.9% 180 ml @ 1 MCG/KG/MIN 6.015 mls/hr IV .Q24H [facility] Rx#: [id number] Dextrose 5% in Water 1, 250 000 ml @ 100 mls/hr IV . [id number] [facility] with Sodium Bicarb (1 Meq/ml) 150 ml Rx#:[id number] Insulin Regular 100 unit 113.828 116.183 11.245 In Sodium Chloride 0.9% 100 ml @ Per Protocol IV .Q0M [facility] Rx#:[id number] Sodium Chloride 0.9% 1, 905 150 000 ml @ 50 mls/hr IV . Q20H [facility] Rx#:[id number] fentaNYL (PF). 1,000 mcg 100 In Sodium Chloride 0.9% 80 ml @ Per Protocol IV . Q0M [facility] Rx#:[id number] propofoL 1,000 mg In 351.823 300 Empty Bag 1 bag @ Titrate IV .Q0M [facility] Rx#: [id number] Tube Feeding 324 378 81 Other 90 30 90 Output: Urine 55 0 23 Hemodialysis 0 500 Other: Voiding Method Indwelling Catheter Indwelling Catheter Indwelling Catheter ABP, PAP, CO, CI - Last Documented Arterial Blood Pressure 110/60 - Exam GENERAL EXAM: Sedated, intubated, -[place] female, in prone position, on assist control mode of ventilation with FiO2 100 percent and PEEP of 18, with a pulse ox of 95% comfortable in no apparent distress. HEAD: Normocephalic/atraumatic. EYES: Normal reaction of pupils, equal size. Conjunctiva pink, sclera white. NOSE: Clear with pink turbinates. THROAT: No erythema or exudates. NECK: No masses, no JVD, no thyroid enlargement, no adenopathy. CHEST: No chest wall deformity. Symmetrical expansion. LUNGS: Equal air entry with bilateral crackles CVS: Regular rate and rhythm, normal S1 and S2, no gallops, no murmurs, no rubs ABDOMEN: Soft, nontender. No hepatosplenomegaly, normal bowel sounds, no guarding or rigidity. EXTREMITIES: No clubbing, no edema, no cyanosis, 2+ pulses and upper and lower extremities. MUSCULOSKELETAL: Muscle strength and tone normal. SPINE: No scoliosis or deformity SKIN: No rashes CENTRAL NERVOUS SYSTEM: Sedated, intubated. No focal deficits, tone is normal in all 4 extremities. - Labs CBC & Chem 7: 09/15/20 05:15 09/15/20 05:15 Labs: Abnormal Lab Results - Last 24 Hours (Table) 09/14/20 09/14/20 09/14/20 Range/Units 05:20 13:19 14:19 Hgb (11.4-16.0) gm/dL ABG pO2 (83-108) mmHg ABG Total CO2 (19-24) mmol/L ABG O2 Saturation (94-97) % Sodium (137-145) mmol/L BUN (7-17) mg/dL Creatinine (0.52-1.04) mg/dL Glucose (74-99) mg/dL POC Glucose (mg/dL) 222 H 274 H (75-99) mg/dL Calcium (8.4-10.2) mg/dL Hep Bs Antibody Reactive A (Non-Reactive) 09/14/20 09/14/20 09/14/20 Range/Units 15:07 15:43 17:48 Hgb (11.4-16.0) gm/dL ABG pO2 (83-108) mmHg ABG Total CO2 (19-24) mmol/L ABG O2 Saturation (94-97) % Sodium (137-145) mmol/L BUN (7-17) mg/dL Creatinine (0.52-1.04) mg/dL Glucose (74-99) mg/dL POC Glucose (mg/dL) 216 H 222 H 210 H (75-99) mg/dL Calcium (8.4-10.2) mg/dL Hep Bs Antibody (Non-Reactive) 09/14/20 09/14/20 09/14/20 Range/Units 18:59 20:42 22:33 Hgb (11.4-16.0) gm/dL ABG pO2 (83-108) mmHg ABG Total CO2 (19-24) mmol/L ABG O2 Saturation (94-97) % Sodium (137-145) mmol/L BUN (7-17) mg/dL Creatinine (0.52-1.04) mg/dL Glucose (74-99) mg/dL POC Glucose (mg/dL) 266 H 143 H 148 H (75-99) mg/dL Calcium (8.4-10.2) mg/dL Hep Bs Antibody (Non-Reactive) 09/14/20 09/15/20 09/15/20 Range/Units 23:52 02:02 04:13 Hgb (11.4-16.0) gm/dL ABG pO2 (83-108) mmHg ABG Total CO2 (19-24) mmol/L ABG O2 Saturation (94-97) % Sodium (137-145) mmol/L BUN (7-17) mg/dL Creatinine (0.52-1.04) mg/dL Glucose (74-99) mg/dL POC Glucose (mg/dL) 146 H 137 H 108 H (75-99) mg/dL Calcium (8.4-10.2) mg/dL Hep Bs Antibody (Non-Reactive) 09/15/20 09/15/20 09/15/20 Range/Units 05:12 05:15 05:15 Hgb 11.3 L (11.4-16.0) gm/dL ABG pO2 (83-108) mmHg ABG Total CO2 (19-24) mmol/L ABG O2 Saturation (94-97) % Sodium 134 L (137-145) mmol/L BUN 34 H (7-17) mg/dL Creatinine 4.78 H (0.52-1.04) mg/dL Glucose 132 H (74-99) mg/dL POC Glucose (mg/dL) 132 H (75-99) mg/dL Calcium 6.9 L (8.4-10.2) mg/dL Hep Bs Antibody (Non-Reactive) 09/15/20 09/15/20 09/15/20 Range/Units 05:37 06:36 09:09 Hgb (11.4-16.0) gm/dL ABG pO2 58 L* (83-108) mmHg ABG Total CO2 26 H (19-24) mmol/L ABG O2 Saturation 90.0 L (94-97) % Sodium (137-145) mmol/L BUN (7-17) mg/dL Creatinine (0.52-1.04) mg/dL Glucose (74-99) mg/dL POC Glucose (mg/dL) 130 H 111 H (75-99) mg/dL Calcium (8.4-10.2) mg/dL Hep Bs Antibody (Non-Reactive) 09/15/20 Range/Units 11:43 Hgb (11.4-16.0) gm/dL ABG pO2 (83-108) mmHg ABG Total CO2 (19-24) mmol/L ABG O2 Saturation (94-97) % Sodium (137-145) mmol/L BUN (7-17) mg/dL Creatinine (0.52-1.04) mg/dL Glucose (74-99) mg/dL POC Glucose (mg/dL) 245 H (75-99) mg/dL Calcium (8.4-10.2) mg/dL Hep Bs Antibody (Non-Reactive) Microbiology - Last 24 Hours (Table) 09/13/20 15:34 Urine Culture - Final Urine,Voided 09/12/20 11:11 Blood Culture - Preliminary Blood No Growth after 48 hours 09/12/20 11:11 Blood Culture - Preliminary Blood No Growth after 48 hours Assessment and Plan Plan: Assessment: #1. Acute hypoxic respiratory failure secondary to COVID-19 pneumonia, transferred to the intensive care unit on 09/11/2020 and intubated and placed on mechanical ventilator on 09/11/2020. Patient received 1 dose of Remdesivir on 09/11/2020, however he says of quick progression of her hypoxic respiratory failure she received Tocilizumab 800 mg on 09/11/2020 On 09/13/2020 patient remains atraumatic, sedated and paralyzed, currently with FiO2 of 70% and PEEP of 18, patient is being proned for 16 hours per day, tolerates well, oxygenation has improved with brawny position, and FiO2 was brought down from the 100% and PEEP was brought down from 20 #2. Acute kidney injury related to ATN, nephrology has been consulted, ultrasound of the kidneys showed no evidence of hydronephrosis. Patient was initiated on hemodialysis on 09/14/2020 #3. Acute diabetic ketoacidosis, resolved #4. Acute metabolic acidosis related to acute DKA, and acute kidney injury. Maintained on bicarbonate infusion #5. Increased d-dimer, related to COVID-19 pneumonia, currently on Lovenox 50 mg twice daily #6. Possible sepsis with increased pro-calcitonin suggesting presence of bacterial infection, cultures have been sent, patient has been started on Zosyn for empiric antibiotics coverage #7. Diabetes mellitus type 2 #8. Morbid obesity with BMI 45.3 kg/m #9. Nonsmoker Plan: Patient has been started on hemodialysis, and she had her first treatment last night and is having another one today She will be placed back in the prone position after completion of hemodialysis Today's chest x-ray and labs have been reviewed We will continue current dose steroids, and Lovenox Continue antibiotics, cultures are negative for pro-calcitonin significantly elevated at 23.5 No sedation holiday No paralytic holiday Continue current vent settings We'll attempt to wean FiO2 back down once patient is a prone position and oxygenating better Nutritional support Follow-up blood gas, follow-up labs and chest x-ray in the morning Continue to closely follow in the intensive care unit Prognosis is guarded I performed a history & physical examination of the patient and discussed their management with my nurse practitioner, Renetta Moreira. I reviewed the nurse practitioner's note and agree with the documented findings and plan of care. Lung sounds are positive for diminished breath sounds. The findings and the impression was discussed with the patient. I attest to the documentation by the nurse practitioner. Time with Patient: Greater than 30
[2020-09-15] MEDS: CISATRACURIUM 200 MG in SODIUM CHLORIDE 0.9% 180 ML IV SCH (13:55)
[2020-09-15] MEDS: fentaNYL (PF). 1,000 MCG in SODIUM CHLORIDE 0.9% 80 ML IV SCH (13:57)
--- NOTE | 2020-09-15 14:06 | P.PN ---
Subjective 35 years old female patient of Dr. Chou with past medical history of type 2 diabetes comes in with acute shortness of breath associated with high light sugars. Patient on admission was found to have a fever of 101.5 pulse rate 125 respiratory rate 20. Blood pressure 132/106. On chest x-ray obtained in the ER suggestive of bilateral infiltrates concerning for call with pneumonia. COVID PCR was positive. On admissions patient had an ABG with a pH of 7.14 pCO2 of 20, pO2 of 59, bicarb of 7. Patient's blood sugar on admission was 424 on assessment today patient's blood work patient had a sodium 135 potassium 5.4 chloride 123 bicarb less than 5 and creatinine 0.73. D-dimer was elevated on admission patient 9 28 patient given 1 L of IV fluids followed by normal saline running at 200 mL/h. Patient was positive for acetone on admission. She will anion gap closed and was switched to D5NS. Insulin drip was continued during the night and was switched to patient's home medication this morning. One dose of remdesiver was ordered. Apparently around noon, A- team was called on the patient secondary to hypoxia patient's oxygen saturation dropped to the 70s and 80s on 100% nonrebreather. Patient was switched to BiPAP on 18/12 and is doing better o FiO2 of 80%. ABG was obtained and ph was 7. 14 pCO2 of 28 bicarb of 7 pO2 of 17. Patient noted to have uncompensated metabolic acidosis with compensated respiratory alkalosis. Stat dose of 1 amp bicarb was given and followed by sodium bicarbonate drip. Insulin drip restarted. Patient's initiated on dexamethasone 6 mg IV twice a day. Potassium phosphate ordered as phosphorus is low. Patient's repeat blood gases suggest a pH of 7.25, CO2 32 pO2 of 72 bicarb 14. I will not normal saline at 100 mL/h as patient's anion gap has increased. Patient given 1 dose of 2 mg of morphine with improvement in respiratory rate. One dose of Ativan 0.5 mg was given. Xanax 0.25 twice a day along with Ativan 0.5 IV every 6 hours ordered for the patient. Vitals were evaluated patient pulse 129 [id number]. She was moved to the ICU. Precedex drip was initiated. Lopressor was initiated at 25 twice a day. Metoprolol tartrate 5 mg IV every 6 hours. Systolic blood pressure more than 160. Started chest x-ray was obtained and suggest stable bilateral consolidation suggestive of COVID-19 pneumonia. 09/12 patient is seen in the ICU is currently mechanically ventilated and sedated on vent settings of respiratory rate 36, tidal volume 375 FiO2 80% PEEP of 18.. Vital signs reviewed patient had a temp of 100.4 pulse 150 respiratory rate 36 oxygen saturation 95% on 80% on fio2 .'s labs are reviewed which patient had a d-dimer 1.84 that is increased to 14.3. Arterial Blood gas suggest ph 7.35, CO2 40, po2 62, . Her BMP suggest a sodium 135 potassium 3.7 chloride 112 bicarb 21 creatinine 1.57 for calcitonin is 3.5 CRP is increased from 8.78.2 LDH is increased to 2614. Patient remains on Pneumovax, propofol drip. Lovenox increased to 50 subcu twice a day. Patient received 2 L of IV fluids. Continue IV fluids at 100 mL/h. Bicarb drip discontinued patient initiated on Zosyn 3.375 every 8 hours. Continue insulin drip at 4 units per hour. Patient is currently in prone positioning 09/13: Patient evaluated in the ICU remains on Ventilation continues to be sedated, in prone position. Vent settings are respiratory rate 36, tidal vital 375, FiO2 70% PEEP of 18. ABG shows pO2 of 82, PCO2 of 39, pH is 7.19. Latest labs show WBC 11.1, hemoglobin 13.2, d-dimer still pending, but yesterday was up to 14.3. Creatinine up to 3.4, BUN 24 sodium 137, potassium 4.0. Patient's urine output has been low, nephrology on consult. Bicarb drip increased to 100 miles an hour, receiving another liter of normal saline, she did have a ultrasound that showed unremarkable bilateral kidneys. Repeat chest x-ray showed bilateral lung infiltrates that are stable. Anion gap has closed, will start Lantus 10 units at at bedtime Novolog every 6 hours. 09/14: Patient is seen in the ICU, still currently mechanically ventilated and sedated. She continues in the prone position. Her oxygen quickly drops if she is not in prone. Patient's kidney function has worsened. Laboratory values show creatinine of 4.87, BUN 33, LDH 2191, C-reactive protein 2.7. ABG shows pH 7.32, pO2 of 60, pCO2 43. Patient is making almost no urine overnight. Nephrology is following patient continues on cefepime for urinary tract infection, culture is still pending. Vascular has been consulted for placement of temporary hemodialysis catheter for plans for dialysis. 09/15: Patient evaluated in the ICU, continues to be mechanically ventilated and sedated on assist control ventilation rate of 36, tidal volume 375, FiO2 100% and PEEP of 18. ABG today shows pO2 58, pCO2 of 45, and pH 7.35. She continues on tube feedings. Yesterday patient underwent ultrasound-guided right internal jugular non-tunneled hemodialysis catheter placement. Patient underwent hemodialysis treatment last night and plans have another hemodialysis treatment today. She continues to make almost no urine. She continues on cefepime for antibiotic coverage, and continues on Decadron and Lovenox. Objective - Vital Signs Vital signs: Vital Signs Temp 97.5 F L 09/15/20 10:34 Pulse 77 09/15/20 10:34 Resp 36 H 09/15/20 10:34 BP 120/60 09/15/20 10:34 Pulse Ox 95 09/15/20 10:00 Intake & Output 09/14/20 09/15/20 09/15/20 18:59 06:59 18:59 Intake Total 2307.501 1299.633 341.245 Output Total 55 0 523 Balance 2252.501 1299.633 -181.755 Weight 116.3 kg 117.5 kg 117.5 kg Intake: IV 36 39 159 Pressure Bag 36 39 9 Sodium Chloride 0.9% 1, 150 000 ml @ 50 mls/hr IV . Q20H [facility] Rx#:[id number] Intake, IV Titration 1857.501 852.633 11.245 Amount Cefepime 1 gm In Sodium 50 Chloride 0.9% 50 ml @ 12. 5 mls/hr IVPB Q12HR [facility] Rx#:[id number] Cisatracurium 200 mg In 186.85 186.45 Sodium Chloride 0.9% 180 ml @ 1 MCG/KG/MIN 6.015 mls/hr IV .Q24H [facility] Rx#: [id number] Dextrose 5% in Water 1, 250 000 ml @ 100 mls/hr IV . [id number] [facility] with Sodium Bicarb (1 Meq/ml) 150 ml Rx#:[id number] Insulin Regular 100 unit 113.828 116.183 11.245 In Sodium Chloride 0.9% 100 ml @ Per Protocol IV .Q0M [facility] Rx#:[id number] Sodium Chloride 0.9% 1, 905 150 000 ml @ 50 mls/hr IV . Q20H [facility] Rx#:[id number] fentaNYL (PF). 1,000 mcg 100 In Sodium Chloride 0.9% 80 ml @ Per Protocol IV . Q0M [facility] Rx#:[id number] propofoL 1,000 mg In 351.823 300 Empty Bag 1 bag @ Titrate IV .Q0M [facility] Rx#: [id number] Tube Feeding 324 378 81 Other 90 30 90 Output: Urine 55 0 23 Hemodialysis 0 500 Other: Voiding Method Indwelling Catheter Indwelling Catheter Indwelling Catheter ABP, PAP, CO, CI - Last Documented Arterial Blood Pressure 110/60 - Exam - Constitutional General appearance: intubated and sedated, obese - Neck Neck: normal ROM - Respiratory Respiratory: bilateral decreased air entry, Minimal chest retractions noted - Cardiovascular Rhythm sinus tachycardia Heart sounds: normal: S1, S2 - Gastrointestinal General gastrointestinal: Nondistended - Integumentary Integumentary: no rash - Neurologic Neurologic: No gross motor deficit - Musculoskeletal Musculoskeletal: Sedated - Psychiatric Psychiatric: Sedated - Labs CBC & Chem 7: 09/15/20 05:15 09/15/20 05:15 Labs: Abnormal Lab Results - Last 24 Hours (Table) 09/14/20 09/14/20 09/14/20 Range/Units 05:20 14:19 15:07 Hgb (11.4-16.0) gm/dL ABG pO2 (83-108) mmHg ABG Total CO2 (19-24) mmol/L ABG O2 Saturation (94-97) % Sodium (137-145) mmol/L BUN (7-17) mg/dL Creatinine (0.52-1.04) mg/dL Glucose (74-99) mg/dL POC Glucose (mg/dL) 274 H 216 H (75-99) mg/dL Calcium (8.4-10.2) mg/dL Hep Bs Antibody Reactive A (Non-Reactive) 09/14/20 09/14/20 09/14/20 Range/Units 15:43 17:48 18:59 Hgb (11.4-16.0) gm/dL ABG pO2 (83-108) mmHg ABG Total CO2 (19-24) mmol/L ABG O2 Saturation (94-97) % Sodium (137-145) mmol/L BUN (7-17) mg/dL Creatinine (0.52-1.04) mg/dL Glucose (74-99) mg/dL POC Glucose (mg/dL) 222 H 210 H 266 H (75-99) mg/dL Calcium (8.4-10.2) mg/dL Hep Bs Antibody (Non-Reactive) 09/14/20 09/14/20 09/14/20 Range/Units 20:42 22:33 23:52 Hgb (11.4-16.0) gm/dL ABG pO2 (83-108) mmHg ABG Total CO2 (19-24) mmol/L ABG O2 Saturation (94-97) % Sodium (137-145) mmol/L BUN (7-17) mg/dL Creatinine (0.52-1.04) mg/dL Glucose (74-99) mg/dL POC Glucose (mg/dL) 143 H 148 H 146 H (75-99) mg/dL Calcium (8.4-10.2) mg/dL Hep Bs Antibody (Non-Reactive) 09/15/20 09/15/20 09/15/20 Range/Units 02:02 04:13 05:12 Hgb (11.4-16.0) gm/dL ABG pO2 (83-108) mmHg ABG Total CO2 (19-24) mmol/L ABG O2 Saturation (94-97) % Sodium (137-145) mmol/L BUN (7-17) mg/dL Creatinine (0.52-1.04) mg/dL Glucose (74-99) mg/dL POC Glucose (mg/dL) 137 H 108 H 132 H (75-99) mg/dL Calcium (8.4-10.2) mg/dL Hep Bs Antibody (Non-Reactive) 09/15/20 09/15/20 09/15/20 Range/Units 05:15 05:15 05:37 Hgb 11.3 L (11.4-16.0) gm/dL ABG pO2 58 L* (83-108) mmHg ABG Total CO2 26 H (19-24) mmol/L ABG O2 Saturation 90.0 L (94-97) % Sodium 134 L (137-145) mmol/L BUN 34 H (7-17) mg/dL Creatinine 4.78 H (0.52-1.04) mg/dL Glucose 132 H (74-99) mg/dL POC Glucose (mg/dL) (75-99) mg/dL Calcium 6.9 L (8.4-10.2) mg/dL Hep Bs Antibody (Non-Reactive) 09/15/20 09/15/20 09/15/20 Range/Units 06:36 09:09 11:43 Hgb (11.4-16.0) gm/dL ABG pO2 (83-108) mmHg ABG Total CO2 (19-24) mmol/L ABG O2 Saturation (94-97) % Sodium (137-145) mmol/L BUN (7-17) mg/dL Creatinine (0.52-1.04) mg/dL Glucose (74-99) mg/dL POC Glucose (mg/dL) 130 H 111 H 245 H (75-99) mg/dL Calcium (8.4-10.2) mg/dL Hep Bs Antibody (Non-Reactive) 09/15/20 Range/Units 13:22 Hgb (11.4-16.0) gm/dL ABG pO2 (83-108) mmHg ABG Total CO2 (19-24) mmol/L ABG O2 Saturation (94-97) % Sodium (137-145) mmol/L BUN (7-17) mg/dL Creatinine (0.52-1.04) mg/dL Glucose (74-99) mg/dL POC Glucose (mg/dL) 198 H (75-99) mg/dL Calcium (8.4-10.2) mg/dL Hep Bs Antibody (Non-Reactive) Microbiology - Last 24 Hours (Table) 09/13/20 15:34 Urine Culture - Final Urine,Voided 09/12/20 11:11 Blood Culture - Preliminary Blood No Growth after 48 hours 09/12/20 11:11 Blood Culture - Preliminary Blood No Growth after 48 hours Assessment and Plan Plan: #1 acute diabetes ketoacidosis secondary to COVID pneumonia. Status post 3 L IV bolus. Anion gap closed. Continue to hold metformin and Januvia, will wean off the insulin drip and switch to subcu NovoLog and Levemir. Continue monitoring electrolytes. Normal saline to be continued at 100 mL/h with bicarbonate drip per pulmonary. #2 acute hypoxic respiratory failure secondary to COVID pneumonia with possible bacterial pneumonia. Intubated on 09/11 Dexamethasone 6 mg IV twice a day continue vitamin C, vitamin D and zinc. Pro-air inhaler every 6 hours. Pulmicort twice daily. Status post Remdesivir and 1 dose of Tocilizumab. #3 acute metabolic acidosis with respiratory alkalosis secondary to DKA. Continue normal saline at 100 mL per hour in addition to D5W with bicarb to help with anion gap. Repeat ABG as needed #4 sepsis secondary to COVID 19 pneumonia pro-calcitonin high cannot exclude bacterial pneumonia. Chest x-ray suggestive of COVID-19 pneumonia. #5 type 2 uncontrolled diabetes A1c of 13.6 on metformin and Januvia as outpa tient. Metformin and Januvia on hold continue subcu NovoLog and Levemir #6 anxiety status post Ativan with minimal improvement currently on Precedex drip #7 hypophosphatemia status post phosphate replacement #8 hyperkalemia secondary to DKA. Continue to watch for hypokalemia. will add potassium to patient normal saline #9 sinus tachycardia secondary to volume deficiency. Continue normal saline at 100 mL per hour. #10 hypertension metoprolol initiated with the twice a day. #11 acute kidney injury secondary to ATN secondary to COVID-19 and DKA. patient patient was started on hemodialysis #9 DVT prophylaxis Lovenox 40 subcu daily #10 GI prophylaxis pantoprazole 40 daily #11 CODE STATUS full code The above impression and plan of care have been discussed and directed by signing physician. Montse Salgado nurse practitioner acting as scribe for signing physician.
[2020-09-15 15:28] LABS: Glucose,Whole Blood 144 mg/dL (75-99)
[2020-09-15] MEDS: INSULIN REGULAR 100 UNIT in SODIUM CHLORIDE 0.9% 100 ML IV SCH (15:55)
[2020-09-15 17:35] LABS: Glucose,Whole Blood 184 mg/dL (75-99)
[2020-09-15] MEDS: NOREPINEPHRINE 8 MG in SODIUM CHLORIDE 0.9% 250 ML IV SCH (18:00)
[2020-09-15 19:07] LABS: Glucose,Whole Blood 153 mg/dL (75-99)
[2020-09-15 21:33] LABS: Glucose,Whole Blood 175 mg/dL (75-99)
[2020-09-16 01:01] LABS: Glucose,Whole Blood 221 mg/dL (75-99)
[2020-09-16 02:20] LABS: Glucose,Whole Blood 205 mg/dL (75-99)
[2020-09-16] MEDS: SODIUM CHLORIDE 0.9% 1,000 ML IV SCH (04:29)
[2020-09-16 04:39] LABS: Glucose,Whole Blood 184 mg/dL (75-99)
[2020-09-16 05:10] LABS: ABG Base Excess -1.2 mmol/L; ABG HCO3 25 mmol/L (21-25); ABG Oxygen Saturation 89.6 % (94-97); ABG PCO2 49 mmHg (35-45); ABG PH 7.32 (7.35-7.45); ABG PO2 61 mmHg (83-108); ABG TCO2 26 mmol/L (19-24); Allen Test Performed? Yes
[2020-09-16] MEDS: fentaNYL (PF). 1,000 MCG in SODIUM CHLORIDE 0.9% 80 ML IV SCH ×2 (05:20→22:05)
[2020-09-16 06:03] LABS: Glucose,Whole Blood 170 mg/dL (75-99)
[2020-09-16] MEDS: CISATRACURIUM 200 MG in SODIUM CHLORIDE 0.9% 180 ML IV SCH ×3 (06:03→23:08)
[2020-09-16 06:35] LABS: Basophils # (A) 0.1 k/uL (0-0.2); Basophils % (A) 1 %; Eosinophils # (A) 0.1 k/uL (0-0.7); Eosinophils % (A) 0 %; Lymphocytes # (A) 1.3 k/uL (1.0-4.8); Lymphocytes % (A) 12 %; MCH 27.1 pg (25.0-35.0); MCHC 32.5 g/dL (31.0-37.0); MCV 83.7 fL (80.0-100.0); Mean Platelet Volume 9.1; Monocytes # (A) 0.5 k/uL (0-1.0); Monocytes % (A) 4 %; Neutrophils # (A) 8.9 k/uL (1.3-7.7); Neutrophils % (A) 80 %; Platelet Count 230 k/uL (150-450); Poikilocytosis Slight; RBC 4.07 m/uL (3.80-5.40); RDW 14.7 % (11.5-15.5); WBC 11.2 k/uL (3.8-10.6)
[2020-09-16 06:37] LABS: Calcium 7.2 mg/dL (8.4-10.2); Potassium 3.4 mmol/L (3.5-5.1)
--- NOTE | 2020-09-16 07:17 | XR ---
EXAMINATION TYPE: XR chest 1V portable DATE OF EXAM: 09/16/2020 COMPARISON: 09/15/2020 HISTORY: Shortness of breath TECHNIQUE: Single frontal view of the chest is obtained. FINDINGS: ET tube and NG tube noted with right-sided dialysis catheter stable. No pneumothorax. Bila teral pleural effusions and diffuse bilateral stable. IMPRESSION: Correlate for ARDS, pulmonary edema, or diffuse pneumonia. Findings stable.
[2020-09-16] MEDS: SYMBICORT 160-4.5 MCG INHALER INHALATION SCH ×2 (07:36→21:45)
[2020-09-16] MEDS: ALBUTEROL HFA INHALER INHALATION SCH ×4 (07:36→21:44)
[2020-09-16 08:09] LABS: Glucose,Whole Blood 152 mg/dL (75-99)
[2020-09-16] MEDS: DEXAMETHASONE SOD PHOSPHATE 10 MG/ML 1 ML VIAL IV SCH ×2 (08:27→20:53)
[2020-09-16] MEDS: ENOXAPARIN 60 MG/0.6 ML SYRINGE SQ SCH (08:28)
[2020-09-16] MEDS: CHLORHEXIDINE GLUCONATE 15 ML CUP MUCOUS MEM SCH ×2 (08:28→20:53)
[2020-09-16] MEDS: PANTOPRAZOLE 40 MG/10 ML VIAL IVP SCH (08:28)
[2020-09-16 09:59] LABS: Glucose,Whole Blood 146 mg/dL (75-99)
[2020-09-16] MEDS: SODIUM CHLORIDE 0.9% 500 ML 500 ML IV SCH (10:09)
--- NOTE | 2020-09-16 10:22 | P.PN ---
Subjective 35 years old female patient of Dr. Chou with past medical history of type 2 diabetes comes in with acute shortness of breath associated with high light sugars. Patient on admission was found to have a fever of 101.5 pulse rate 125 respiratory rate 20. Blood pressure 132/106. On chest x-ray obtained in the ER suggestive of bilateral infiltrates concerning for call with pneumonia. COVID PCR was positive. On admissions patient had an ABG with a pH of 7.14 pCO2 of 20, pO2 of 59, bicarb of 7. Patient's blood sugar on admission was 424 on assessment today patient's blood work patient had a sodium 135 potassium 5.4 chloride 123 bicarb less than 5 and creatinine 0.73. D-dimer was elevated on admission patient 9 28 patient given 1 L of IV fluids followed by normal saline running at 200 mL/h. Patient was positive for acetone on admission. She will anion gap closed and was switched to D5NS. Insulin drip was continued during the night and was switched to patient's home medication this morning. One dose of remdesiver was ordered. Apparently around noon, A- team was called on the patient secondary to hypoxia patient's oxygen saturation dropped to the 70s and 80s on 100% nonrebreather. Patient was switched to BiPAP on 18/12 and is doing better o FiO2 of 80%. ABG was obtained and ph was 7. 14 pCO2 of 28 bicarb of 7 pO2 of 17. Patient noted to have uncompensated metabolic acidosis with compensated respiratory alkalosis. Stat dose of 1 amp bicarb was given and followed by sodium bicarbonate drip. Insulin drip restarted. Patient's initiated on dexamethasone 6 mg IV twice a day. Potassium phosphate ordered as phosphorus is low. Patient's repeat blood gases suggest a pH of 7.25, CO2 32 pO2 of 72 bicarb 14. I will not normal saline at 100 mL/h as patient's anion gap has increased. Patient given 1 dose of 2 mg of morphine with improvement in respiratory rate. One dose of Ativan 0.5 mg was given. Xanax 0.25 twice a day along with Ativan 0.5 IV every 6 hours ordered for the patient. Vitals were evaluated patient pulse 129 [id number]. She was moved to the ICU. Precedex drip was initiated. Lopressor was initiated at 25 twice a day. Metoprolol tartrate 5 mg IV every 6 hours. Systolic blood pressure more than 160. Started chest x-ray was obtained and suggest stable bilateral consolidation suggestive of COVID-19 pneumonia. 09/12 patient is seen in the ICU is currently mechanically ventilated and sedated on vent settings of respiratory rate 36, tidal volume 375 FiO2 80% PEEP of 18.. Vital signs reviewed patient had a temp of 100.4 pulse 150 respiratory rate 36 oxygen saturation 95% on 80% on fio2 .'s labs are reviewed which patient had a d-dimer 1.84 that is increased to 14.3. Arterial Blood gas suggest ph 7.35, CO2 40, po2 62, . Her BMP suggest a sodium 135 potassium 3.7 chloride 112 bicarb 21 creatinine 1.57 for calcitonin is 3.5 CRP is increased from 8.78.2 LDH is increased to 2614. Patient remains on Pneumovax, propofol drip. Lovenox increased to 50 subcu twice a day. Patient received 2 L of IV fluids. Continue IV fluids at 100 mL/h. Bicarb drip discontinued patient initiated on Zosyn 3.375 every 8 hours. Continue insulin drip at 4 units per hour. Patient is currently in prone positioning 09/13: Patient evaluated in the ICU remains on Ventilation continues to be sedated, in prone position. Vent settings are respiratory rate 36, tidal vital 375, FiO2 70% PEEP of 18. ABG shows pO2 of 82, PCO2 of 39, pH is 7.19. Latest labs show WBC 11.1, hemoglobin 13.2, d-dimer still pending, but yesterday was up to 14.3. Creatinine up to 3.4, BUN 24 sodium 137, potassium 4.0. Patient's urine output has been low, nephrology on consult. Bicarb drip increased to 100 miles an hour, receiving another liter of normal saline, she did have a ultrasound that showed unremarkable bilateral kidneys. Repeat chest x-ray showed bilateral lung infiltrates that are stable. Anion gap has closed, will start Lantus 10 units at at bedtime Novolog every 6 hours. 09/14: Patient is seen in the ICU, still currently mechanically ventilated and sedated. She continues in the prone position. Her oxygen quickly drops if she is not in prone. Patient's kidney function has worsened. Laboratory values show creatinine of 4.87, BUN 33, LDH 2191, C-reactive protein 2.7. ABG shows pH 7.32, pO2 of 60, pCO2 43. Patient is making almost no urine overnight. Nephrology is following patient continues on cefepime for urinary tract infection, culture is still pending. Vascular has been consulted for placement of temporary hemodialysis catheter for plans for dialysis. 09/15: Patient evaluated in the ICU, continues to be mechanically ventilated and sedated on assist control ventilation rate of 36, tidal volume 375, FiO2 100% and PEEP of 18. ABG today shows pO2 58, pCO2 of 45, and pH 7.35. She continues on tube feedings. Yesterday patient underwent ultrasound-guided right internal jugular non-tunneled hemodialysis catheter placement. Patient underwent hemodialysis treatment last night and plans have another hemodialysis treatment today. She continues to make almost no urine. She continues on cefepime for antibiotic coverage, and continues on Decadron and Lovenox. 09/16: Patient seen on follow-up remains in the ICU mechanically ventilated and sedated. She continues on assist control rate of 36, tidal volume 375, FiO2 100% and PEEP of 20. PEEP had to be increased due to patient had to be in supine position for dialysis, will go back to prone position once dialysis is complete. ABG shows pH 7.32, pCO2 49, PaO2 61. Laboratory values showed WBC 11.2 , hemoglobin 11, sodium 134, creatinine 4.44, BUN 38. Urine culture shows no growth, blood cultures show no growth to date. Repeat chest x-ray shows bilateral pleural effusions, correlate for ARDS, pulmonary edema, diffuse pneumonia, findings are stable from last exam. Patient does not require any pressors, blood pressure 133/57, heart rate 78. Objective - Vital Signs Vital signs: Vital Signs Temp 98.4 F 09/16/20 04:00 Pulse 78 09/16/20 06:00 Resp 36 H 09/16/20 06:00 BP 90/39 09/16/20 04:00 Pulse Ox 89 L 09/16/20 06:00 Intake & Output 09/15/20 09/16/20 09/16/20 18:59 06:59 18:59 Intake Total 3870.228 6963.007 Output Total 533 0 Balance 0071.632 1892.007 Weight 117.5 kg 121.9 kg Intake: IV 583 689 Pressure Bag 33 39 Sodium Chloride 0.9% 1, 550 650 000 ml @ 50 mls/hr IV . Q20H [facility] Rx#:[id number] Intake, IV Titration 508.459 680.007 Amount Cisatracurium 200 mg In 171.814 196.875 Sodium Chloride 0.9% 180 ml @ 1 MCG/KG/MIN 6.015 mls/hr IV .Q24H [facility] Rx#: [id number] Insulin Regular 100 unit 62.755 67.131 In Sodium Chloride 0.9% 100 ml @ Per Protocol IV .Q0M [facility] Rx#:[id number] fentaNYL (PF). 1,000 mcg 73.89 78.301 In Sodium Chloride 0.9% 80 ml @ Per Protocol IV . Q0M [facility] Rx#:[id number] propofoL 1,000 mg In 200 337.700 Empty Bag 1 bag @ Titrate IV .Q0M [facility] Rx#: [id number] Tube Feeding 333 468 Other 150 Output: Urine 33 0 Hemodialysis 500 Other: Voiding Method Indwelling Catheter Indwelling Catheter ABP, PAP, CO, CI - Last Documented Arterial Blood Pressure 133/57 - Exam - Constitutional General appearance: intubated and sedated, obese, in prone position - Neck Neck: normal ROM - Respiratory Respiratory: bilateral decreased air entry, diffuse rhonchi - Cardiovascular Rhythm sinus tachycardia Heart sounds: normal: S1, S2 - Gastrointestinal General gastrointestinal: Nondistended - Integumentary Integumentary: no rash - Neurologic Neurologic: No gross motor deficit - Musculoskeletal Musculoskeletal: Sedated - Psychiatric Psychiatric: Sedated - Labs CBC & Chem 7: 09/16/20 05:30 09/16/20 05:30 Labs: Abnormal Lab Results - Last 24 Hours (Table) 09/14/20 09/15/20 09/15/20 Range/Units 05:20 09:09 11:43 WBC (3.8-10.6) k/uL Hgb (11.4-16.0) gm/dL Neutrophils # (1.3-7.7) k/uL ABG pH (7.35-7.45) ABG pCO2 (35-45) mmHg ABG pO2 (83-108) mmHg ABG Total CO2 (19-24) mmol/L ABG O2 Saturation (94-97) % Sodium (137-145) mmol/L Potassium (3.5-5.1) mmol/L BUN (7-17) mg/dL Creatinine (0.52-1.04) mg/dL Glucose (74-99) mg/dL POC Glucose (mg/dL) 111 H 245 H (75-99) mg/dL Calcium (8.4-10.2) mg/dL Hep Bs Antibody Reactive A (Non-Reactive) 09/15/20 09/15/20 09/15/20 Range/Units 13:22 15:26 17:34 WBC (3.8-10.6) k/uL Hgb (11.4-16.0) gm/dL Neutrophils # (1.3-7.7) k/uL ABG pH (7.35-7.45) ABG pCO2 (35-45) mmHg ABG pO2 (83-108) mmHg ABG Total CO2 (19-24) mmol/L ABG O2 Saturation (94-97) % Sodium (137-145) mmol/L Potassium (3.5-5.1) mmol/L BUN (7-17) mg/dL Creatinine (0.52-1.04) mg/dL Glucose (74-99) mg/dL POC Glucose (mg/dL) 198 H 144 H 184 H (75-99) mg/dL Calcium (8.4-10.2) mg/dL Hep Bs Antibody (Non-Reactive) 09/15/20 09/15/20 09/16/20 Range/Units 19:06 21:31 01:00 WBC (3.8-10.6) k/uL Hgb (11.4-16.0) gm/dL Neutrophils # (1.3-7.7) k/uL ABG pH (7.35-7.45) ABG pCO2 (35-45) mmHg ABG pO2 (83-108) mmHg ABG Total CO2 (19-24) mmol/L ABG O2 Saturation (94-97) % Sodium (137-145) mmol/L Potassium (3.5-5.1) mmol/L BUN (7-17) mg/dL Creatinine (0.52-1.04) mg/dL Glucose (74-99) mg/dL POC Glucose (mg/dL) 153 H 175 H 221 H (75-99) mg/dL Calcium (8.4-10.2) mg/dL Hep Bs Antibody (Non-Reactive) 09/16/20 09/16/20 09/16/20 Range/Units 02:19 04:38 05:00 WBC (3.8-10.6) k/uL Hgb (11.4-16.0) gm/dL Neutrophils # (1.3-7.7) k/uL ABG pH 7.32 L (7.35-7.45) ABG pCO2 49 H (35-45) mmHg ABG pO2 61 L (83-108) mmHg ABG Total CO2 26 H (19-24) mmol/L ABG O2 Saturation 89.6 L (94-97) % Sodium (137-145) mmol/L Potassium (3.5-5.1) mmol/L BUN (7-17) mg/dL Creatinine (0.52-1.04) mg/dL Glucose (74-99) mg/dL POC Glucose (mg/dL) 205 H 184 H (75-99) mg/dL Calcium (8.4-10.2) mg/dL Hep Bs Antibody (Non-Reactive) 09/16/20 09/16/20 09/16/20 Range/Units 05:30 05:30 06:02 WBC 11.2 H (3.8-10.6) k/uL Hgb 11.0 L (11.4-16.0) gm/dL Neutrophils # 8.9 H (1.3-7.7) k/uL ABG pH (7.35-7.45) ABG pCO2 (35-45) mmHg ABG pO2 (83-108) mmHg ABG Total CO2 (19-24) mmol/L ABG O2 Saturation (94-97) % Sodium 134 L (137-145) mmol/L Potassium 3.4 L (3.5-5.1) mmol/L BUN 38 H (7-17) mg/dL Creatinine 4.44 H (0.52-1.04) mg/dL Glucose 164 H (74-99) mg/dL POC Glucose (mg/dL) 170 H (75-99) mg/dL Calcium 7.2 L (8.4-10.2) mg/dL Hep Bs Antibody (Non-Reactive) Microbiology - Last 24 Hours (Table) 09/12/20 11:11 Blood Culture - Preliminary Blood No Growth after 72 hours 09/12/20 11:11 Blood Culture - Preliminary Blood No Growth after 72 hours Assessment and Plan Plan: #1 acute diabetes ketoacidosis secondary to COVID pneumonia. Status post 3 L IV bolus. Anion gap closed. Continue to hold metformin and Januvia, will wean off the insulin drip and switch to subcu NovoLog and Levemir. Continue monitoring electrolytes. Normal saline to be continued at 100 mL/h with bicarbonate drip per pulmonary. #2 acute hypoxic respiratory failure secondary to COVID pneumonia with possible bacterial pneumonia. Intubated on 09/11 Dexamethasone 6 mg IV twice a day continue vitamin C, vitamin D and zinc. Pro-air inhaler every 6 hours. Pulmicort twice daily. Status post Remdesivir and 1 dose of Tocilizumab. Inter mittent prone positioning #3 acute metabolic acidosis with respiratory alkalosis secondary to DKA. Continue normal saline at 50mL per hour. Repeat ABGs as needed #4 sepsis secondary to COVID 19 pneumonia pro-calcitonin high cannot exclude bacterial pneumonia. Chest x-ray suggestive of COVID-19 pneumonia. #5 type 2 uncontrolled diabetes A1c of 13.6 on metformin and Januvia as outpatient. Metformin and Januvia on hold continue subcu NovoLog and Levemir #6 anxiety status post Ativan with minimal improvement currently on Precedex drip #7 hypophosphatemia status post phosphate replacement #8 hyperkalemia secondary to DKA. Continue to watch for hypokalemia. will add potassium to patient normal saline #9 sinus tachycardia secondary to volume deficiency. Continue normal saline at 100 mL per hour. #10 hypertension metoprolol initiated with the twice a day. #11 acute kidney injury secondary to ATN secondary to COVID-19 and DKA. patient patient was started on hemodialysis #9 DVT prophylaxis Lovenox 40 subcu daily #10 GI prophylaxis pantoprazole 40 daily #11 CODE STATUS full code The above impression and plan of care have been discussed and directed by signing physician. Montse Salgado nurse practitioner acting as scribe for signing physician.
[2020-09-16] MEDS: METOPROLOL TARTRATE 25 MG TAB PO SCH ×2 (11:18→20:53)
[2020-09-16] MEDS: CEFEPIME 1 GM in SODIUM CHLORIDE 0.9% 50 ML IVPB SCH ×2 (11:19→20:54)
[2020-09-16] MEDS: CHOLECALCIFEROL 25 MCG (1000 IU) TABLET PO SCH (11:19)
[2020-09-16] MEDS: ZINC SULFATE 220 MG CAP PO SCH (11:20)
[2020-09-16] MEDS: SODIUM BICARBONATE TAB 650 MG TAB PO SCH ×3 (11:20→22:04)
[2020-09-16] MEDS: ASCORBIC ACID 500 MG TAB PO SCH ×2 (11:27→20:53)
[2020-09-16] MEDS: INSULIN REGULAR 100 UNIT in SODIUM CHLORIDE 0.9% 100 ML IV SCH (11:37)
--- NOTE | 2020-09-16 12:24 | P.PN ---
Subjective Progress Note Date: 09/16/20 Principal diagnosis: Acute hypoxemic respiratory failure secondary COVID-19 pneumonia, DKA This is a 55-year-old -[place] female with history of type 2 diabetes, admitted today through the emergency room with a few days' history of increased shortness of breath, cough, fever, chest x-ray in the ER showed bilateral infiltrates consistent with COVID-19 pneumonia in the patient had positive PCR for COVID-19 infection. Patient had significantly abnormal labs on admission, she had an extremely low bicarb, extremely low pH, and marginal oxygenation at best. Patient was admitted to the regular medical floor, and I happened to be rounding on that same floor were and I was notified about this patient having worsening respiratory distress. Evaluated the patient, clearly the patient has DKA and she clearly has acute hypoxic respiratory failure secondary to COVID-19 pneumonia. As soon as I laid eyes on the patient, recommended immediate transfer to the ICU. Patient was placed on BiPAP however she did not tolerate BiPAP well, and when I went back to evaluate the patient in the ICU, she was basically deteriorating, and she was using her accessory muscles, patient was in severe respiratory distress. Hence I recommended immediate intubation and placement on mechanical ventilation. Chest x-ray continued to show bilateral infiltrates consistent with worsening COVID-19 pneumonia ABG showed a pO2 of 59 pCO2 of 42 pH of 7.05 and this was on the 100% FiO2 20 of PEEP tidal volume of 375 rate of 36. Patient will be given more bicarb and she is already on a bica rb drip. She is receiving insulin and she is also receiving IV fluids in the form of 0.9 normal saline. Sugars were 384. Inflammatory markers were added to be extremely high, LDH 2048, and C-reactive protein of 8.7. D-dimer was borderline elevated at 1.84. On 09/12/2020 patient seen in follow-up in the intensive care unit, yesterday she was emergently transferred to the intensive care and intubated and placed on mechanical ventilator. She remains intubated, sedated on mechanical ventilator, currently on assist control mode of ventilation with a rate 36, tidal vital 375, FiO2 100% and PEEP of 20. This might blood gas reveals pO2 of 62, pCO2 40, pH of 7.35 this was done on FiO2 of 80%, her peak airway pressure is 35, in her plateau pressure is around 32. she is sedated on Diprivan and 60 mics per kilo per minute, 0.9 normal saline at 100 ML per hour, insulin drip is at 4 units per hour, and she has 5% dextrose with 3 units of bicarbonate at 100 ML per hour. Today's labs have been reviewed, showing white blood cell count 10.3, hemoglobin of 14.4, d-dimer has increased to 14.31, and her Lovenox was adjusted and increased to 50 mg twice daily, sodium is 137, potassium is 3.7, chloride is 112, CO2 is up to 21, BUN of 16 creatinine is 1.57, LDH is 2618, CRP is 18.2. Pro-Calcitonin level came back elevated at 3.53, suggesting possibility of bacterial infection She received a liter bolus yesterday after intubation. We will give the patient additional fluid boluses today. Sputum culture has been sent and is pending, blood cultures have been sent. Patient has been placed in prone position at 8:00 last night, and her oxygenation seems to be improved and she satting 97% on 100% FiO2 and subsequently FiO2 was dropped down to 80%, and PEEP is down to 18. She remains in prone positioning, tolerating it well, she is having low-grade fevers, she is in sinus mechanism with tachycardic on the monitor, not requiring any vasopressor support right now, will start tube feedi ngs today when the patient is placed back over in the supine position On 09/13/2020 patient seen in follow-up in intensive care unit, she remains proned, and at the time of our evaluation patient has already been prone for close to 16 hours and is about to be turned back on her spine. She tolerates prone position quite well, she remains intubated, paralyzed and sedated on mechanical ventilator, current vent settings are assist-control mode of ventilation with a rate of 36, tidal volume 375, FiO2 of 70% and PEEP of 18, this point his blood gases show pO2 of 82, pCO2 of 39, and pH of 7.19. She's currently on D5 W with 3 A of bicarbonate at 75 per hour, Diprivan is a 60 mics per kilo per minute, index is at 2 mics per kilo per minute, and insulin drip is at 6 units per hour, patient has not started tube feedings yet. She is in sinus mechanism, hemodynamically stable, not requiring any vasopressor support. Today's chest x-ray has been reviewed showing bilateral lung infiltrates that a ppear to be stable. Today's labs have been reviewed showing white blood cell count of 11.1, hemoglobin 13.2, d-dimer is pending, yesterday his d-dimer was 14.3, patient's Lovenox dose was increased to 50 mg every 24 hours. Her renal function continued to worsen, and her creatinine is up to 3.4 on today's labs, BUN is 24, were bicarb concentration is only 13 on today's labs, sodium is 137, potassium is 4.0. AST is up to 77, ALT and alk phos are within normal limits, yesterday set him inflammatory markers with showing up trending LDH at 2618, and CRP of 18.2. Her pro-calcitonin level was increased yesterday at 3.53 and we added empiric antibiotics in the form of Zosyn. Sputum culture has been sent and has shown no growth. Overnight patient remained oliguric, yesterday we gave her additional fluids, however did not improve her renal function and her kidney function continued to get worse. Nephrology consultation has been requested, she has only been producing urine in the order of 5-10 ML per hour, renal ultrasound has been obtained showing no evidence of hydronephrosis bilaterally. On 09/14/2020 patient seen in follow-up in intensive care unit, she remains intubated, sedated and paralyzed, currently on assist control mode of ventilation with a rate of 36, tidal vital 375, FiO2 of 60% and PEEP of 18. This morning's blood gas was reviewed showing pO2 of 60, pCO2 of 43, and pH of 7.32. This was done on FiO2 of 70%, her peak airway pressure is 40, plateau pressures 26. She is currently on D5 with 3 A of bicarbonate at 100 ML per hour, insulin drip is at 7 units per hour, fentanyl drip is a 0.5 mics per kilo per hour, Diprivan and is at 50 mics per kilo per minute, and index is at 2 mics per kilo per minute. She is tolerating tube feedings of vital high-protein at 27 with a goal 27 standard water flushes. Today's chest x-ray has not been completed yet, because the patient has been in prone position for last 16 hours. Patient tolerates prone in quite well, and her oxygenation improves when she is in prone position. However when she is turned over in the supine position to complete chest x-rays and ADL's, patient's O2 sat drops down to low 80s and her FiO2 requirement increases at that time. Today's labs have been reviewed, and there has been further worsening of her renal function, and patient has made almost no urine overnight. Her BUN is 33, and creatinine is 4.87, nephrology is following, her renal ultrasound showed no evidence of hydronephrosis. Her urinalysis showed possibility of urinary tract infection, and patient has been started on cefepime. Urine culture is pending at this time, blood and sputum cultures have been negative. No fevers overnight, she's not requiring any vasopressor support. On 09/15/2020 patient seen in follow-up in intensive care unit, she remains intubated, sedated and paralyzed on assist-control mode of ventilation with a rate of 36, tidal vital 375, FiO2 100% and PEEP of 18, this morning's blood gas reviewed showing pO2 of 58, pCO2 of 45, and pH is 7.35, this was done on FiO2 of 100%. Her peak airway pressures 44, plateau pressures 38, she is on 0.9 normal saline at 50 ML per hour, Diprivan is a 40 mics per kilo per minute, Nimbex drip is a 2 mics per kilo per minute, and fentanyl drip at 0.5 mics per kilo per hour, she is tolerating tube feedings with vital high-protein is 27 with a goal of 27 standard water flushes. She is in sinus mechanism with a rate of 73, she is hemodynamically stable and not requiring any vasopressors. Today's chest x- ray shows ARDS, bilateral airspace opacities, no significant pleural effusion and no pneumothorax. Today's labs have been reviewed, white blood cell count is 9.9, hemoglobin is 11.3, sodium is 134, respiratory electrolytes were within normal limits, and there has been further worsening of her renal function with BUN of 34, creatinine is 4.78, her urine output has remained very poor. Last night she had her first hemodialysis session and no fluid was removed, this morning she is having another hemodialysis treatments and the goal is to remove half a liter of fluid. Her sputum, blood and urine cultures remained negative thus far, patient's pro-calcitonin level came back significantly elevated at 23.5 suggesting evidence of bacterial infection. Patient remains on cefepime for antibiotic coverage, she also remains on Decadron milligrams twice daily, and Lovenox is 50 mg every 24 hours. The patient is seen today 09/16/2020 in follow-up in the intensive care unit. She remains intubated on the mechanical ventilator. Current settings assist- control at a rate of 36, tidal volume 3 or 75, FiO2 100% and a PEEP of 18. Morning blood gases reveal a pO2 of 61, pCO2 49, pH 7.32. Peak pressures of 48, plateau pressure 43. Chest x-ray continues to show evidence of ARDS, pulmonary edema, diffuse pneumonia. She was not proned last night. The plan is to receive hemodialysis again today. Ultrasound of the chest did not reveal any si gnificant fluid for thoracentesis. Sedated on propofol at 50 mcg/kg/m, fentanyl at 0.5 mcg/kg per hour, Nimbex at 3 mcg/kg/m. Insulin drip at 4 units per hour. She is being nourished with vital HPI at 36 ML's per hour. 0.9 normal saline at 60 ML's per hour. Blood, sputum and urine cultures reveal no growth. White count 11.2. Hemoglobin 11.0. Sodium 134. Potassium 3.4. Creatinine 4.44. G lucose 164. She remains in sinus rhythm. She is continued on Symbicort, albuterol. Antibiotics in the form of cefepime. Remains on Decadron, Lovenox, vitamin supplements. Objective - Vital Signs Vital signs: Vital Signs Temp 98.0 F 09/16/20 11:51 Pulse 89 09/16/20 11:51 Resp 36 H 09/16/20 11:51 BP 121/65 09/16/20 11:51 Pulse Ox 89 L 09/16/20 11:00 Intake & Output 09/15/20 09/16/20 09/16/20 18:59 06:59 18:59 Intake Total 3078.375 6488.007 476.369 Output Total 533 0 1215 Balance 9187.866 3002.007 -738.631 Weight 117.5 kg 121.9 kg Intake: IV 583 689 92 Pressure Bag 33 39 12 Sodium Chloride 0.9% 1, 550 650 80 000 ml @ 50 mls/hr IV . Q20H [facility] Rx#:[id number] Intake, IV Titration 508.459 680.007 174.369 Amount Cisatracurium 200 mg In 171.814 196.875 Sodium Chloride 0.9% 180 ml @ 1 MCG/KG/MIN 6.015 mls/hr IV .Q24H [facility] Rx#: [id number] Insulin Regular 100 unit 62.755 67.131 24.611 In Sodium Chloride 0.9% 100 ml @ Per Protocol IV .Q0M [facility] Rx#:[id number] fentaNYL (PF). 1,000 mcg 73.89 78.301 In Sodium Chloride 0.9% 80 ml @ Per Protocol IV . Q0M [facility] Rx#:[id number] propofoL 1,000 mg In 200 337.700 149.758 Empty Bag 1 bag @ Titrate IV .Q0M [facility] Rx#: [id number] Tube Feeding 333 468 180 Other 150 30 Output: Urine 33 0 15 Hemodialysis 500 1200 Other: Voiding Method Indwelling Catheter Indwelling Catheter Indwelling Catheter ABP, PAP, CO, CI - Last Documented Arterial Blood Pressure 110/51 - Exam GENERAL EXAM: Intubated, sedated, paralyzed 35-year-old female patient, on assist control mode of ventilation with FiO2 100 percent and PEEP of 18, with a pulse ox of 89% comfortable in no apparent distress. HEAD: Normocephalic/atraumatic. EYES: Normal reaction of pupils, equal size. Conjunctiva pink, sclera white. NOSE: Clear with pink turbinates. THROAT: No erythema or exudates. NECK: No masses, no JVD, no thyroid enlargement, no adenopathy. CHEST: No chest wall deformity. Symmetrical expansion. LUNGS: Equal air entry with bilateral crackles CVS: Regular rate and rhythm, normal S1 and S2, no gallops, no murmurs, no rubs ABDOMEN: Soft, nontender. No hepatosplenomegaly, normal bowel sounds, no guarding or rigidity. EXTREMITIES: No clubbing, no edema, no cyanosis, 2+ pulses and upper and lower extremities. MUSCULOSKELETAL: Muscle strength and tone normal. SPINE: No scoliosis or deformity SKIN: No rashes CENTRAL NERVOUS SYSTEM: Sedated, intubated. No focal deficits, tone is normal in all 4 extremities. - Labs CBC & Chem 7: 09/16/20 05:30 09/16/20 05:30 Labs: Abnormal Lab Results - Last 24 Hours (Table) 09/14/20 09/15/20 09/15/20 Range/Units 05:20 13:22 15:26 WBC (3.8-10.6) k/uL Hgb (11.4-16.0) gm/dL Neutrophils # (1.3-7.7) k/uL ABG pH (7.35-7.45) ABG pCO2 (35-45) mmHg ABG pO2 (83-108) mmHg ABG Total CO2 (19-24) mmol/L ABG O2 Saturation (94-97) % Sodium (137-145) mmol/L Potassium (3.5-5.1) mmol/L BUN (7-17) mg/dL Creatinine (0.52-1.04) mg/dL Glucose (74-99) mg/dL POC Glucose (mg/dL) 198 H 144 H (75-99) mg/dL Calcium (8.4-10.2) mg/dL Hep Bs Antibody Reactive A (Non-Reactive) 09/15/20 09/15/20 09/15/20 Range/Units 17:34 19:06 21:31 WBC (3.8-10.6) k/uL Hgb (11.4-16.0) gm/dL Neutrophils # (1.3-7.7) k/uL ABG pH (7.35-7.45) ABG pCO2 (35-45) mmHg ABG pO2 (83-108) mmHg ABG Total CO2 (19-24) mmol/L ABG O2 Saturation (94-97) % Sodium (137-145) mmol/L Potassium (3.5-5.1) mmol/L BUN (7-17) mg/dL Creatinine (0.52-1.04) mg/dL Glucose (74-99) mg/dL POC Glucose (mg/dL) 184 H 153 H 175 H (75-99) mg/dL Calcium (8.4-10.2) mg/dL Hep Bs Antibody (Non-Reactive) 09/16/20 09/16/20 09/16/20 Range/Units 01:00 02:19 04:38 WBC (3.8-10.6) k/uL Hgb (11.4-16.0) gm/dL Neutrophils # (1.3-7.7) k/uL ABG pH (7.35-7.45) ABG pCO2 (35-45) mmHg ABG pO2 (83-108) mmHg ABG Total CO2 (19-24) mmol/L ABG O2 Saturation (94-97) % Sodium (137-145) mmol/L Potassium (3.5-5.1) mmol/L BUN (7-17) mg/dL Creatinine (0.52-1.04) mg/dL Glucose (74-99) mg/dL POC Glucose (mg/dL) 221 H 205 H 184 H (75-99) mg/dL Calcium (8.4-10.2) mg/dL Hep Bs Antibody (Non-Reactive) 09/16/20 09/16/20 09/16/20 Range/Units 05:00 05:30 05:30 WBC 11.2 H (3.8-10.6) k/uL Hgb 11.0 L (11.4-16.0) gm/dL Neutrophils # 8.9 H (1.3-7.7) k/uL ABG pH 7.32 L (7.35-7.45) ABG pCO2 49 H (35-45) mmHg ABG pO2 61 L (83-108) mmHg ABG Total CO2 26 H (19-24) mmol/L ABG O2 Saturation 89.6 L (94-97) % Sodium 134 L (137-145) mmol/L Potassium 3.4 L (3.5-5.1) mmol/L BUN 38 H (7-17) mg/dL Creatinine 4.44 H (0.52-1.04) mg/dL Glucose 164 H (74-99) mg/dL POC Glucose (mg/dL) (75-99) mg/dL Calcium 7.2 L (8.4-10.2) mg/dL Hep Bs Antibody (Non-Reactive) 09/16/20 09/16/20 09/16/20 Range/Units 06:02 08:07 09:57 WBC (3.8-10.6) k/uL Hgb (11.4-16.0) gm/dL Neutrophils # (1.3-7.7) k/uL ABG pH (7.35-7.45) ABG pCO2 (35-45) mmHg ABG pO2 (83-108) mmHg ABG Total CO2 (19-24) mmol/L ABG O2 Saturation (94-97) % Sodium (137-145) mmol/L Potassium (3.5-5.1) mmol/L BUN (7-17) mg/dL Creatinine (0.52-1.04) mg/dL Glucose (74-99) mg/dL POC Glucose (mg/dL) 170 H 152 H 146 H (75-99) mg/dL Calcium (8.4-10.2) mg/dL Hep Bs Antibody (Non-Reactive) Microbiology - Last 24 Hours (Table) 09/12/20 11:11 Blood Culture - Preliminary Blood No Growth after 72 hours 09/12/20 11:11 Blood Culture - Preliminary Blood No Growth after 72 hours Assessment and Plan Assessment: 1 Acute hypoxic respiratory failure secondary to COVID-19 pneumonia, transferred to the intensive care unit on 09/11/2020 and intubated and placed on mechanical ventilator on 09/11/2020. Patient received 1 dose of Remdesivir on 09/11/2020, however based on her quick progression of her hypoxic respiratory failure she received Tocilizumab 800 mg on 09/11/2020 2 Acute kidney injury related to ATN, nephrology has been consulted, ultrasound of the kidneys showed no evidence of hydronephrosis. Patient was initiated on hemodialysis on 09/14/2020 3 Acute diabetic ketoacidosis, resolved 4 Acute metabolic acidosis related to acute DKA, and acute kidney injury. Maintained on bicarbonate infusion 5 Increased d-dimer, related to COVID-19 pneumonia, currently on Lovenox 50 mg twice daily 6 Possible sepsis with increased pro-calcitonin suggesting presence of bacterial infection, cultures have been sent, patient has been started on Zosyn for empiric antibiotics coverage 7 Diabetes mellitus type 2 8 Morbid obesity with BMI 45.3 kg/m 9 Nonsmoker Plan: The patient was seen and evaluated by Dr. Dykes Chest x-ray, ABGs and labs reviewed Increase the PEEP to 20 We will continue the current treatment plan Advanced the endotracheal tube 2 cm Receiving hemodialysis again today Prone following dialysis Prognosis is quite guarded We will continue to follow and make further recommendations based on her clinical status Critical care time 38 minutes I, the cosigning physician, performed a history & physical examination of the patient. Lungs sounds with crackles in the bilateral bases. Maintaining O2 saturations in the 80s low 90s on 100% FiO2 and a PEEP of 20 per the mechanical ventilator. I discussed the assessment and plan of care with my nurse practiti otilio, Kyara Concepcion. I attest to the above note as dictated by her.
[2020-09-16 12:52] LABS: Glucose,Whole Blood 135 mg/dL (75-99)
[2020-09-16 14:10] LABS: Glucose,Whole Blood 222 mg/dL (75-99)
--- NOTE | 2020-09-16 14:22 | PN ---
PROGRESS NOTE Patient is seen for followup for acute kidney injury, currently with dialysis dependent renal failure. The patient is currently being dialyzed. She remains on the vent. She was in prone position, currently in supine. The blood pressure this morning was 120/60, heart rate 90 per minute. She is afebrile. Case is discussed with nursing staff, dialysis staff. Blood pressure is around 100-95 mmHg systolic. We are trying a goal UF of about 1-1/2 L. Urine output is 0-10. The patient remains with the edema in the lower extremities. LAB: Show sodium 134, potassium 3.4, chloride 103, CO2 is 26, BUN 38, creatinine 4.4, calcium 7.2. ASSESSMENT: 1. Acute kidney injury, acute tubular necrosis, currently dialysis dependent and oliguric, seen on dialysis. 2. Acute hypoxic respiratory failure secondary to COVID pneumonia, currently on the vent. 3. Diabetic ketoacidosis status post insulin drip. 4. Volume overload. 5. Metabolic acidosis associated with renal failure, status post bicarb drip, currently improved. 6. Hypocalcemia, currently improved. PLAN: Increase goal UF to about 1.5 L as tolerated. Repeat labs in a.m. Continue antibiotics. Continue steroids. MMODL / IJN: [id number] /
[2020-09-16 15:13] LABS: Glucose,Whole Blood 189 mg/dL (75-99)
[2020-09-16] MEDS: NOREPINEPHRINE 8 MG in SODIUM CHLORIDE 0.9% 250 ML IV SCH (15:59)
[2020-09-16 16:05] LABS: Glucose,Whole Blood 200 mg/dL (75-99)
[2020-09-16 18:08] LABS: Glucose,Whole Blood 184 mg/dL (75-99)
[2020-09-16 19:55] LABS: Glucose,Whole Blood 132 mg/dL (75-99)
[2020-09-16 21:05] LABS: Glucose,Whole Blood 143 mg/dL (75-99)
[2020-09-16 23:08] LABS: Glucose,Whole Blood 159 mg/dL (75-99)
[2020-09-17 01:04] LABS: Glucose,Whole Blood 155 mg/dL (75-99)
[2020-09-17] MEDS: INSULIN REGULAR 100 UNIT in SODIUM CHLORIDE 0.9% 100 ML IV SCH (02:30)
[2020-09-17 03:23] LABS: Glucose,Whole Blood 147 mg/dL (75-99)
[2020-09-17 04:39] LABS: Basophils # (A) 0.1 k/uL (0-0.2); Basophils % (A) 1 %; Eosinophils # (A) 0.1 k/uL (0-0.7); Eosinophils % (A) 1 %; HCT 30.7 % (34.0-46.0); HGB 10.4 gm/dL (11.4-16.0); Lymphocytes # (A) 1.3 k/uL (1.0-4.8); Lymphocytes % (A) 13 %; MCH 28.2 pg (25.0-35.0); MCV 82.8 fL (80.0-100.0); Mean Platelet Volume 9.1; Monocytes # (A) 0.3 k/uL (0-1.0); Monocytes % (A) 3 %; Neutrophils # (A) 8.3 k/uL (1.3-7.7); Neutrophils % (A) 81 %; Platelet Count 190 k/uL (150-450); Poikilocytosis Slight; RDW 14.1 % (11.5-15.5); WBC 10.3 k/uL (3.8-10.6)
[2020-09-17 04:52] LABS: C Reactive Protein 1.3 mg/dL (<1.0); Calcium 7.7 mg/dL (8.4-10.2); Potassium 3.1 mmol/L (3.5-5.1)
[2020-09-17 05:13] LABS: Glucose,Whole Blood 122 mg/dL (75-99)
[2020-09-17 06:18] LABS: ABG Base Excess -1.7 mmol/L; ABG HCO3 24 mmol/L (21-25); ABG PCO2 40 mmHg (35-45); ABG PH 7.37 (7.35-7.45); ABG PO2 102 mmHg (83-108); ABG TCO2 25 mmol/L (19-24); Allen Test Performed? Yes
[2020-09-17 06:56] LABS: Glucose,Whole Blood 139 mg/dL (75-99)
[2020-09-17 07:41] LABS: Glucose,Whole Blood 164 mg/dL (75-99)
[2020-09-17] MEDS: ALBUTEROL HFA INHALER INHALATION SCH ×4 (07:57→21:37)
[2020-09-17] MEDS: SYMBICORT 160-4.5 MCG INHALER INHALATION SCH ×2 (07:58→21:37)
[2020-09-17] MEDS: ZINC SULFATE 220 MG CAP PO SCH (09:16)
[2020-09-17] MEDS: METOPROLOL TARTRATE 25 MG TAB PO SCH ×2 (09:16→21:05)
[2020-09-17] MEDS: ASCORBIC ACID 500 MG TAB PO SCH ×2 (09:16→21:05)
[2020-09-17] MEDS: DEXAMETHASONE SOD PHOSPHATE 10 MG/ML 1 ML VIAL IV SCH ×2 (09:17→21:04)
[2020-09-17] MEDS: CHLORHEXIDINE GLUCONATE 15 ML CUP MUCOUS MEM SCH ×2 (09:17→21:04)
[2020-09-17] MEDS: CHOLECALCIFEROL 25 MCG (1000 IU) TABLET PO SCH (09:17)
[2020-09-17] MEDS: ENOXAPARIN 60 MG/0.6 ML SYRINGE SQ SCH (09:18)
[2020-09-17] MEDS: PANTOPRAZOLE 40 MG/10 ML VIAL IVP SCH (09:18)
[2020-09-17] MEDS: SODIUM CHLORIDE 0.9% 500 ML 500 ML IV SCH (09:18)
[2020-09-17] MEDS: SODIUM BICARBONATE TAB 650 MG TAB PO SCH ×3 (09:18→22:48)
[2020-09-17] MEDS: CISATRACURIUM 200 MG in SODIUM CHLORIDE 0.9% 180 ML IV SCH ×2 (09:19→17:59)
--- NOTE | 2020-09-17 09:59 | P.PN ---
Subjective 35 years old female patient of Dr. Chou with past medical history of type 2 diabetes comes in with acute shortness of breath associated with high light sugars. Patient on admission was found to have a fever of 101.5 pulse rate 125 respiratory rate 20. Blood pressure 132/106. On chest x-ray obtained in the ER suggestive of bilateral infiltrates concerning for call with pneumonia. COVID PCR was positive. On admissions patient had an ABG with a pH of 7.14 pCO2 of 20, pO2 of 59, bicarb of 7. Patient's blood sugar on admission was 424 on assessment today patient's blood work patient had a sodium 135 potassium 5.4 chloride 123 bicarb less than 5 and creatinine 0.73. D-dimer was elevated on admission patient 9 28 patient given 1 L of IV fluids followed by normal saline running at 200 mL/h. Patient was positive for acetone on admission. She will anion gap closed and was switched to D5NS. Insulin drip was continued during the night and was switched to patient's home medication this morning. One dose of remdesiver was ordered. Apparently around noon, A- team was called on the patient secondary to hypoxia patient's oxygen saturation dropped to the 70s and 80s on 100% nonrebreather. Patient was switched to BiPAP on 18/12 and is doing better o FiO2 of 80%. ABG was obtained and ph was 7. 14 pCO2 of 28 bicarb of 7 pO2 of 17. Patient noted to have uncompensated metabolic acidosis with compensated respiratory alkalosis. Stat dose of 1 amp bicarb was given and followed by sodium bicarbonate drip. Insulin drip restarted. Patient's initiated on dexamethasone 6 mg IV twice a day. Potassium phosphate ordered as phosphorus is low. Patient's repeat blood gases suggest a pH of 7.25, CO2 32 pO2 of 72 bicarb 14. I will not normal saline at 100 mL/h as patient's anion gap has increased. Patient given 1 dose of 2 mg of morphine with improvement in respiratory rate. One dose of Ativan 0.5 mg was given. Xanax 0.25 twice a day along with Ativan 0.5 IV every 6 hours ordered for the patient. Vitals were evaluated patient pulse 129 [id number]. She was moved to the ICU. Precedex drip was initiated. Lopressor was initiated at 25 twice a day. Metoprolol tartrate 5 mg IV every 6 hours. Systolic blood pressure more than 160. Started chest x-ray was obtained and suggest stable bilateral consolidation suggestive of COVID-19 pneumonia. 09/12 patient is seen in the ICU is currently mechanically ventilated and sedated on vent settings of respiratory rate 36, tidal volume 375 FiO2 80% PEEP of 18.. Vital signs reviewed patient had a temp of 100.4 pulse 150 respiratory rate 36 oxygen saturation 95% on 80% on fio2 .'s labs are reviewed which patient had a d-dimer 1.84 that is increased to 14.3. Arterial Blood gas suggest ph 7.35, CO2 40, po2 62, . Her BMP suggest a sodium 135 potassium 3.7 chloride 112 bicarb 21 creatinine 1.57 for calcitonin is 3.5 CRP is increased from 8.78.2 LDH is increased to 2614. Patient remains on Pneumovax, propofol drip. Lovenox increased to 50 subcu twice a day. Patient received 2 L of IV fluids. Continue IV fluids at 100 mL/h. Bicarb drip discontinued patient initiated on Zosyn 3.375 every 8 hours. Continue insulin drip at 4 units per hour. Patient is currently in prone positioning 09/13: Patient evaluated in the ICU remains on Ventilation continues to be sedated, in prone position. Vent settings are respiratory rate 36, tidal vital 375, FiO2 70% PEEP of 18. ABG shows pO2 of 82, PCO2 of 39, pH is 7.19. Latest labs show WBC 11.1, hemoglobin 13.2, d-dimer still pending, but yesterday was up to 14.3. Creatinine up to 3.4, BUN 24 sodium 137, potassium 4.0. Patient's urine output has been low, nephrology on consult. Bicarb drip increased to 100 miles an hour, receiving another liter of normal saline, she did have a ultrasound that showed unremarkable bilateral kidneys. Repeat chest x-ray showed bilateral lung infiltrates that are stable. Anion gap has closed, will start Lantus 10 units at at bedtime Novolog every 6 hours. 09/14: Patient is seen in the ICU, still currently mechanically ventilated and sedated. She continues in the prone position. Her oxygen quickly drops if she is not in prone. Patient's kidney function has worsened. Laboratory values show creatinine of 4.87, BUN 33, LDH 2191, C-reactive protein 2.7. ABG shows pH 7.32, pO2 of 60, pCO2 43. Patient is making almost no urine overnight. Nephrology is following patient continues on cefepime for urinary tract infection, culture is still pending. Vascular has been consulted for placement of temporary hemodialysis catheter for plans for dialysis. 09/15: Patient evaluated in the ICU, continues to be mechanically ventilated and sedated on assist control ventilation rate of 36, tidal volume 375, FiO2 100% and PEEP of 18. ABG today shows pO2 58, pCO2 of 45, and pH 7.35. She continues on tube feedings. Yesterday patient underwent ultrasound-guided right internal jugular non-tunneled hemodialysis catheter placement. Patient underwent hemodialysis treatment last night and plans have another hemodialysis treatment today. She continues to make almost no urine. She continues on cefepime for antibiotic coverage, and continues on Decadron and Lovenox. 09/16: Patient seen on follow-up remains in the ICU mechanically ventilated and sedated. She continues on assist control rate of 36, tidal volume 375, FiO2 100% and PEEP of 20. PEEP had to be increased due to patient had to be in supine position for dialysis, will go back to prone position once dialysis is complete. ABG shows pH 7.32, pCO2 49, PaO2 61. Laboratory values showed WBC 11.2 , hemoglobin 11, sodium 134, creatinine 4.44, BUN 38. Urine culture shows no growth, blood cultures show no growth to date. Repeat chest x-ray shows bilateral pleural effusions, correlate for ARDS, pulmonary edema, diffuse pneumonia, findings are stable from last exam. Patient does not require any pressors, blood pressure 133/57, heart rate 78. 09/17: Patient was evaluated in the ICU today for follow-up. She continues to be intubated and on mechanical ventilation. Current vent settings are tidal volume 375, FiO2 100% and PEEP of 20. ABG shows pH 7.37, pCO2 40, pO2 102. She continues with intermittent prone positioning. Patient continues to have almost no urine output, maintained on dialysis. Patient received dialysis yesterday without complication. Laboratory values revealed WBC 10.3, hemoglobin 10.4, sodium 132, potassium 3.1, BUN 33, creatinine 4.29, LDH 1913, C-reactive protein 1.3. Urine and sputum cultures are negative, blood cultures show no growth to date. Consult placed to dietary to start TPN Objective - Vital Signs Vital signs: Vital Signs Temp 98.3 F 09/17/20 04:00 Pulse 68 09/17/20 07:00 Resp 36 H 09/17/20 07:00 BP 90/39 09/16/20 20:00 Pulse Ox 97 09/17/20 07:00 Intake & Output 09/16/20 09/17/20 09/17/20 18:59 06:59 18:59 Intake Total 1007.442 858.956 23 Output Total 1270 20 Balance -262.558 838.956 23 Weight 121.8 kg Intake: IV 123 256 23 Pressure Bag 33 36 3 Sodium Chloride 0.9% 1, 90 220 20 000 ml @ 50 mls/hr IV . Q20H [facility] Rx#:[id number] Intake, IV Titration 674.442 602.956 Amount Cisatracurium 200 mg In 146.457 157.584 Sodium Chloride 0.9% 180 ml @ 1 MCG/KG/MIN 6.015 mls/hr IV .Q24H [facility] Rx#: [id number] Insulin Regular 100 unit 58.227 40.114 In Sodium Chloride 0.9% 100 ml @ Per Protocol IV .Q0M [facility] Rx#:[id number] Sodium Chloride 0.9% 500 120 20 ml 500 ml @ 20 mls/hr IV .Q24H [facility] Rx#:[id number] fentaNYL (PF). 1,000 mcg 85.258 In Sodium Chloride 0.9% 80 ml @ Per Protocol IV . Q0M [facility] Rx#:[id number] propofoL 1,000 mg In 349.758 300 Empty Bag 1 bag @ Titrate IV .Q0M [facility] Rx#: [id number] Tube Feeding 180 0 Other 30 Output: Urine 70 20 Hemodialysis 1200 Other: Voiding Method Indwelling Catheter Indwelling Catheter ABP, PAP, CO, CI - Last Documented Arterial Blood Pressure 143/63 - Exam - Constitutional General appearance: intubated and sedated, obese, in prone position - Neck Neck: normal ROM - Respiratory Respiratory: bilateral decreased air entry, bilateral crackles - Cardiovascular Rhythm sinus tachycardia Heart sounds: normal: S1, S2 no murmurs, no rubs, no gallops - Gastrointestinal General gastrointestinal: Abdomen not assessed due to patient in prone position - Integumentary Integumentary: no rash - Neurologic Neurologic: No gross motor deficit - Musculoskeletal Musculoskeletal: Sedated - Psychiatric Psychiatric: Sedated - Labs CBC & Chem 7: 09/17/20 04:01 09/17/20 04:01 Labs: Abnormal Lab Results - Last 24 Hours (Table) 09/16/20 09/16/20 09/16/20 Range/Units 08:07 09:57 12:51 RBC (3.80-5.40) m/uL Hgb (11.4-16.0) gm/dL Hct (34.0-46.0) % Neutrophils # (1.3-7.7) k/uL D-Dimer (<0.60) mg/L FEU ABG Total CO2 (19-24) mmol/L ABG O2 Saturation (94-97) % Sodium (137-145) mmol/L Potassium (3.5-5.1) mmol/L BUN (7-17) mg/dL Creatinine (0.52-1.04) mg/dL Glucose (74-99) mg/dL POC Glucose (mg/dL) 152 H 146 H 135 H (75-99) mg/dL Calcium (8.4-10.2) mg/dL Lactate Dehydrogenase (313-618) U/L C-Reactive Protein (<1.0) mg/dL 09/16/20 09/16/20 09/16/20 Range/Units 14:08 15:12 16:03 RBC (3.80-5.40) m/uL Hgb (11.4-16.0) gm/dL Hct (34.0-46.0) % Neutrophils # (1.3-7.7) k/uL D-Dimer (<0.60) mg/L FEU ABG Total CO2 (19-24) mmol/L ABG O2 Saturation (94-97) % Sodium (137-145) mmol/L Potassium (3.5-5.1) mmol/L BUN (7-17) mg/dL Creatinine (0.52-1.04) mg/dL Glucose (74-99) mg/dL POC Glucose (mg/dL) 222 H 189 H 200 H (75-99) mg/dL Calcium (8.4-10.2) mg/dL Lactate Dehydrogenase (313-618) U/L C-Reactive Protein (<1.0) mg/dL 09/16/20 09/16/20 09/16/20 Range/Units 18:07 19:53 21:04 RBC (3.80-5.40) m/uL Hgb (11.4-16.0) gm/dL Hct (34.0-46.0) % Neutrophils # (1.3-7.7) k/uL D-Dimer (<0.60) mg/L FEU ABG Total CO2 (19-24) mmol/L ABG O2 Saturation (94-97) % Sodium (137-145) mmol/L Potassium (3.5-5.1) mmol/L BUN (7-17) mg/dL Creatinine (0.52-1.04) mg/dL Glucose (74-99) mg/dL POC Glucose (mg/dL) 184 H 132 H 143 H (75-99) mg/dL Calcium (8.4-10.2) mg/dL Lactate Dehydrogenase (313-618) U/L C-Reactive Protein (<1.0) mg/dL 09/16/20 09/17/20 09/17/20 Range/Units 23:06 01:03 03:21 RBC (3.80-5.40) m/uL Hgb (11.4-16.0) gm/dL Hct (34.0-46.0) % Neutrophils # (1.3-7.7) k/uL D-Dimer (<0.60) mg/L FEU ABG Total CO2 (19-24) mmol/L ABG O2 Saturation (94-97) % Sodium (137-145) mmol/L Potassium (3.5-5.1) mmol/L BUN (7-17) mg/dL Creatinine (0.52-1.04) mg/dL Glucose (74-99) mg/dL POC Glucose (mg/dL) 159 H 155 H 147 H (75-99) mg/dL Calcium (8.4-10.2) mg/dL Lactate Dehydrogenase (313-618) U/L C-Reactive Protein (<1.0) mg/dL 09/17/20 09/17/20 09/17/20 Range/Units 04:01 04:01 04:01 RBC 3.70 L (3.80-5.40) m/uL Hgb 10.4 L (11.4-16.0) gm/dL Hct 30.7 L (34.0-46.0) % Neutrophils # 8.3 H (1.3-7.7) k/uL D-Dimer 6.83 H (<0.60) mg/L FEU ABG Total CO2 (19-24) mmol/L ABG O2 Saturation (94-97) % Sodium 132 L (137-145) mmol/L Potassium 3.1 L (3.5-5.1) mmol/L BUN 33 H (7-17) mg/dL Creatinine 4.29 H (0.52-1.04) mg/dL Glucose 135 H (74-99) mg/dL POC Glucose (mg/dL) (75-99) mg/dL Calcium 7.7 L (8.4-10.2) mg/dL Lactate Dehydrogenase 1913 H (313-618) U/L C-Reactive Protein 1.3 H (<1.0) mg/dL 09/17/20 09/17/20 09/17/20 Range/Units 05:11 06:15 06:54 RBC (3.80-5.40) m/uL Hgb (11.4-16.0) gm/dL Hct (34.0-46.0) % Neutrophils # (1.3-7.7) k/uL D-Dimer (<0.60) mg/L FEU ABG Total CO2 25 H (19-24) mmol/L ABG O2 Saturation 98.0 H (94-97) % Sodium (137-145) mmol/L Potassium (3.5-5.1) mmol/L BUN (7-17) mg/dL Creatinine (0.52-1.04) mg/dL Glucose (74-99) mg/dL POC Glucose (mg/dL) 122 H 139 H (75-99) mg/dL Calcium (8.4-10.2) mg/dL Lactate Dehydrogenase (313-618) U/L C-Reactive Protein (<1.0) mg/dL 09/17/20 Range/Units 07:39 RBC (3.80-5.40) m/uL Hgb (11.4-16.0) gm/dL Hct (34.0-46.0) % Neutrophils # (1.3-7.7) k/uL D-Dimer (<0.60) mg/L FEU ABG Total CO2 (19-24) mmol/L ABG O2 Saturation (94-97) % Sodium (137-145) mmol/L Potassium (3.5-5.1) mmol/L BUN (7-17) mg/dL Creatinine (0.52-1.04) mg/dL Glucose (74-99) mg/dL POC Glucose (mg/dL) 164 H (75-99) mg/dL Calcium (8.4-10.2) mg/dL Lactate Dehydrogenase (313-618) U/L C-Reactive Protein (<1.0) mg/dL Microbiology - Last 24 Hours (Table) 09/12/20 11:11 Blood Culture - Preliminary Blood No Growth after 96 hours 09/12/20 11:11 Blood Culture - Preliminary Blood No Growth after 96 hours Assessment and Plan Plan: #1 acute diabetes ketoacidosis secondary to COVID pneumonia. Status post 3 L IV bolus. Anion gap closed. Continue to hold metformin and Januvia, no NovoLog and Lovenox 50 units daily. Continue monitoring electrolytes. Normal saline to be continued at 20 mL/h #2 acute hypoxic respiratory failure secondary to COVID pneumonia with possible bacterial pneumonia. Intubated on 09/11 Dexamethasone 6 mg IV twice a day continue vitamin C, vitamin D and zinc. Pro-air inhaler every 6 hours. Pulmicort twice daily. Status post Remdesivir and 1 dose of Tocilizumab. Intermittent prone positioning #3 acute metabolic acidosis with respiratory alkalosis secondary to DKA. Continue normal saline at 50mL per hour. Repeat ABGs as needed #4 sepsis secondary to COVID 19 pneumonia pro-calcitonin high cannot exclude bacterial pneumonia. Chest x-ray suggestive of COVID-19 pneumonia. #5 type 2 uncontrolled diabetes A1c of 13.6 on metformin and Januvia as ou tpatient. Metformin and Januvia on hold continue subcu NovoLog and Levemir #6 anxiety status post Ativan with minimal improvement currently on Precedex drip #7 hypophosphatemia status post phosphate replacement #8 hyperkalemia secondary to DKA. Continue to watch for hypokalemia. will add potassium to patient normal saline #9 sinus tachycardia secondary to volume deficiency. Continue normal saline at 100 mL per hour. #10 hypertension metoprolol initiated with the twice a day. #11 acute kidney injury secondary to ATN secondary to COVID-19 and DKA. patient patient was started on hemodialysis #9 DVT prophylaxis Lovenox 40 subcu daily #10 GI prophylaxis pantoprazole 40 daily #11 CODE STATUS full code The above impression and plan of care have been discussed and directed by signing physician. Montse Salgado nurse practitioner acting as scribe for signing physician.
[2020-09-17 10:03] LABS: Glucose,Whole Blood 129 mg/dL (75-99)
--- NOTE | 2020-09-17 10:37 | PN ---
PROGRESS NOTE Patient is seen for followup for acute kidney injury, currently hemodialysis dependent. She was dialyzed yesterday we were able to get about 1.2 L of ultrafiltration. The patient is currently in prone position secondary to significant hypoxia. We were not able to prone her while she was on dialysis yesterday. No significant urine output. FiO2 is currently down to 80%. PEEP has been 18-20. PHYSICAL EXAMINATION: On examination today, blood pressure 135/61, heart rate 67 per minute. Patient is not examined. Discussed with nursing staff. She remains significantly edematous with no significant urine output. LABS: Reviewed. Sodium 132, potassium 3.1, chloride 101, BUN 33, creatinine 4.29, hemoglobin 10.4 g/dL. ASSESSMENT: 1. Acute kidney injury, acute tubular necrosis, currently oliguric and dialysis dependent. The patient tolerated dialysis fairly well yesterday. We will plan on an another treatment tomorrow. However, if there are plans for keeping her supine today, we can try for a short treatment today as well. Otherwise, we will plan for tomorrow. 2. Hypokalemia currently being replaced. 3. Acute hypoxic respiratory failure secondary to COVID pneumonia/ARDS, maintained on the vent, significant hypoxia and requiring proning. 4. Metabolic acidosis associated with renal failure, status post bicarb drip. 5. Hypocalcemia, improved, maintained on supplementation, maintained on vitamin D as well. PLAN: Hemodialysis in a.m. However, if there are plans on keeping the patient supine today we can dialyze her today as well. MMODL / IJN: [id number] /
[2020-09-17 11:41] LABS: Glucose,Whole Blood 95 mg/dL (75-99)
[2020-09-17 13:39] LABS: Glucose,Whole Blood 157 mg/dL (75-99)
--- NOTE | 2020-09-17 14:56 | P.PN ---
Subjective Progress Note Date: 09/17/20 Principal diagnosis: Acute hypoxic respiratory failure secondary to COVID-19 pneumonia and ARDS secondary to COVID-19 pneumonia This is a 55-year-old -Serbian female with history of type 2 diabetes, admitted today through the emergency room with a few days' history of increased shortness of breath, cough, fever, chest x-ray in the ER showed bilateral infiltrates consistent with COVID-19 pneumonia in the patient had positive PCR for COVID-19 infection. Patient had significantly abnormal labs on admission, she had an extremely low bicarb, extremely low pH, and marginal oxygenation at best. Patient was admitted to the regular medical floor, and I happened to be rounding on that same floor were and I was notified about this patient having worsening respiratory distress. Evaluated the patient, clearly the patient has DKA and she clearly has acute hypoxic respiratory failure secondary to COVID-19 pneumonia. As soon as I laid eyes on the patient, recommended immediate transfer to the ICU. Patient was placed on BiPAP however she did not tolerate BiPAP well, and when I went back to evaluate the patient in the ICU, she was basically deteriorating, and she was using her accessory muscles, patient was in severe respiratory distress. Hence I recommended immediate intubation and placement on mechanical ventilation. Chest x-ray continued to show bilateral in filtrates consistent with worsening COVID-19 pneumonia ABG showed a pO2 of 59 pCO2 of 42 pH of 7.05 and this was on the 100% FiO2 20 of PEEP tidal volume of 375 rate of 36. Patient will be given more bicarb and she is already on a bicarb drip. She is receiving insulin and she is also receiving IV fluids in the form of 0.9 normal saline. Sugars were 384. Inflammatory markers were added to be extremely high, LDH 8, and C-reactive protein of 8.7. D-dimer was borderline elevated at 1.84. On 09/12/2020 patient seen in follow-up in the intensive care unit, yesterday she was emergently transferred to the intensive care and intubated and placed on mechanical ventilator. She remains intubated, sedated on mechanical ventilator, currently on assist control mode of ventilation with a rate 36, tidal vital 375, FiO2 100% and PEEP of 20. This might blood gas reveals pO2 of 62, pCO2 40, pH of 7.35 this was done on FiO2 of 80%, her peak airway pressure is 35, in her plateau pressure is around 32. she is sedated on Diprivan and 60 mics per kilo per minute, 0.9 normal saline at 100 ML per hour, insulin drip is at 4 units per hour, and she has 5% dextrose with 3 units of bicarbonate at 100 ML per hour. Today's labs have been reviewed, showing white blood cell count 10.3, hemoglobin of 14.4, d-dimer has increased to 14.31, and her Lovenox was adjusted and increased to 50 mg twice daily, sodium is 137, potassium is 3.7, chloride is 112, CO2 is up to 21, BUN of 16 creatinine is 1.57, LDH is 2618, CRP is 18.2. Pro-Calcitonin level came back elevated at 3.53, suggesting possibility of bacterial infection She received a liter bolus yesterday after intubation. We will give the patient additional fluid boluses today. Sputum culture has been sent and is pending, blood cultures have been sent. Patient has been placed in prone position at 8:00 last night, and her oxygenation seems to be improved and she satting 97% on 100% FiO2 and subsequently FiO2 was dropped down to 80%, and PEEP is down to 18. She remains in prone positioning, tolerating it well, she is having low-grade fevers, she is in sinus mechanism with tachycardic on the monitor, not requiring any vasopressor support right now, will start tube feedings today when the patient is placed back over in the supine position On 09/13/2020 patient seen in follow-up in intensive care unit, she remains proned, and at the time of our evaluation patient has already been prone for close to 16 hours and is about to be turned back on her spine. She tolerates prone position quite well, she remains intubated, paralyzed and sedated on mechanical ventilator, current vent settings are assist-control mode of ventilation with a rate of 36, tidal volume 375, FiO2 of 70% and PEEP of 18, this point his blood gases show pO2 of 82, pCO2 of 39, and pH of 7.19. She's currently on D5 W with 3 A of bicarbonate at 75 per hour, Diprivan is a 60 mics per kilo per minute, index is at 2 mics per kilo per minute, and insulin drip is at 6 units per hour, patient has not started tube feedings yet. She is in sinus mechanism, hemodynamically stable, not requiring any vasopressor support. Today's chest x-ray has been reviewed showing bilateral lung infiltrates that appear to be stable. Today's labs have been reviewed showing white blood cell count of 11.1, hemoglobin 13.2, d-dimer is pending, yesterday his d-dimer was 14.3, patient's Lovenox dose was increased to 50 mg every 24 hours. Her renal function continued to worsen, and her creatinine is up to 3.4 on today's labs, BUN is 24, were bicarb concentration is only 13 on today's labs, sodium is 137, potassium is 4.0. AST is up to 77, ALT and alk phos are within normal limits, yesterday set him inflammatory markers with showing up trending LDH at 2618, and CRP of 18.2. Her pro-calcitonin level was increased yesterday at 3.53 and we added empiric antibiotics in the form of Zosyn. Sputum culture has been sent and has shown no growth. Overnight patient remained oliguric, yesterday we gave her additional fluids, however did not improve her renal function and her kidney function continued to get worse. Nephrology consultation has been requested, she has only been producing urine in the order of 5-10 ML per hour, renal ultrasound has been obtained showing no evidence of hydronephrosis bilaterally. On 09/14/2020 patient seen in follow-up in intensive care unit, she remains intubated, sedated and paralyzed, currently on assist control mode of ventilation with a rate of 36, tidal vital 375, FiO2 of 60% and PEEP of 18. This morning's blood gas was reviewed showing pO2 of 60, pCO2 of 43, and pH of 7.32. This was done on FiO2 of 70%, her peak airway pressure is 40, plateau pressures 26. She is currently on D5 with 3 A of bicarbonate at 100 ML per hour , insulin drip is at 7 units per hour, fentanyl drip is a 0.5 mics per kilo per hour, Diprivan and is at 50 mics per kilo per minute, and index is at 2 mics per kilo per minute. She is tolerating tube feedings of vital high-protein at 27 with a goal 27 standard water flushes. Today's chest x-ray has not been completed yet, because the patient has been in prone position for last 16 hours. Patient tolerates prone in quite well, and her oxygenation improves when she is in prone position. However when she is turned over in the supine position to complete chest x-rays and ADL's, patient's O2 sat drops down to low 80s and her FiO2 requirement increases at that time. Today's labs have been reviewed, and there has been further worsening of her renal function, and patient has made almost no urine overnight. Her BUN is 33, and creatinine is 4.87, nephrology is following, her renal ultrasound showed no evidence of hydronephrosis. Her urinalysis showed possibility of urinary tract infection, and patient has been started on cefepime. Urine culture is pending at this time, blood and sputum cultures have been negative. No fevers overnight, she's not requiring any vasopressor support. On 09/15/2020 patient seen in follow-up in intensive care unit, she remains intubated, sedated and paralyzed on assist-control mode of ventilation with a rate of 36, tidal vital 375, FiO2 100% and PEEP of 18, this morning's blood gas reviewed showing pO2 of 58, pCO2 of 45, and pH is 7.35, this was done on FiO2 of 100%. Her peak airway pressures 44, plateau pressures 38, she is on 0.9 normal saline at 50 ML per hour, Diprivan is a 40 mics per kilo per minute, Nimbex drip is a 2 mics per kilo per minute, and fentanyl drip at 0.5 mics per kilo per hour, she is tolerating tube feedings with vital high-protein is 27 with a goal of 27 standard water flushes. She is in sinus mechanism with a rate of 73, she is hemodynamically stable and not requiring any vasopressors. Today's chest x- ray shows ARDS, bilateral airspace opacities, no significant pleural effusion and no pneumothorax. Today's labs have been reviewed, white blood cell count is 9.9, hemoglobin is 11.3, sodium is 134, respiratory electrolytes were within normal limits, and there has been further worsening of her renal function with BUN of 34, creatinine is 4.78, her urine output has remained very poor. Last night she had her first hemodialysis session and no fluid was removed, this morning she is having another hemodialysis treatments and the goal is to remove half a liter of fluid. Her sputum, blood and urine cultures remained negative thus far, patient's pro-calcitonin level came back significantly elevated at 23.5 suggesting evidence of bacterial infection. Patient remains on cefepime for antibiotic coverage, she also remains on Decadron milligrams twice daily, and Lovenox is 50 mg every 24 hours. The patient is seen today 09/16/2020 in follow-up in the intensive care unit. She remains intubated on the mechanical ventilator. Current settings assist- control at a rate of 36, tidal volume 3 or 75, FiO2 100% and a PEEP of 18. Morning blood gases reveal a pO2 of 61, pCO2 49, pH 7.32. Peak pressures of 48, plateau pressure 43. Chest x-ray continues to show evidence of ARDS, pulmonary edema, diffuse pneumonia. She was not proned last night. The plan is to receive hemodialysis again today. Ultrasound of the chest did not reveal any significant fluid for thoracentesis. Sedated on propofol at 50 mcg/kg/m, fentanyl at 0.5 mcg/kg per hour, Nimbex at 3 mcg/kg/m. Insulin drip at 4 units per hour. She is being nourished with vital HPI at 36 ML's per hour. 0.9 normal saline at 60 ML's per hour. Blood, sputum and urine cultures reveal no growth. White count 11.2. Hemoglobin 11.0. Sodium 134. Potassium 3.4. Creatinine 4.44. Glucose 164. She remains in sinus rhythm. She is continued on Symbicort, albuterol. Antibiotics in the form of cefepime. Remains on Decadron, Lovenox, vitamin supplements. Reevaluated today on 09/17/2020, remains in the ICU, intubated and mechanically ventilated. Patient is on assist control rate of 36 tidal volume 350 FiO2 80% and will cut it down to 70% PEEP is at 20. ABG showed a pO2 of 102 pCO2 of 40 pH of 7.37 and this was on a 90% FiO2 now her FiO2 is down to 70%. Patient remains on hemodialysis, and she is receiving hemodialysis daily. She is on Nimbex at 30 mcg/kg/m, he is also on fentanyl at 0.5 mg/kg/h insulin at 6 units per hour propofol at 50 mcg/kg/m patient has been in prone position almost at least 16 hours per day. Remains on enteral feeding and would've may consider TPN in addition to her enteral feeding if not meeting her total caloric requirements. Patient remains on cefepime. Decadron and Lovenox. Chest x-ray continues to show significant bilateral interstitial infiltrates. WBC count is 10.3 hemoglobin is 10.4, basic metabolic profile showed low potassium of 3.1 being addressed by nephrology BUN is 33 creatinine 4.29. LDH is coming down a bit 1912 C-reactive protein is coming down to 1.3. Objective - Vital Signs Vital signs: Vital Signs Temp 98.9 F 09/17/20 12:00 Pulse 70 09/17/20 13:00 Resp 36 H 09/17/20 13:00 BP 90/39 09/16/20 20:00 Pulse Ox 90 L 09/17/20 13:00 Intake & Output 09/16/20 09/17/20 09/17/20 18:59 06:59 18:59 Intake Total 1007.442 858.956 612.267 Output Total 1270 20 15 Balance -262.558 838.956 597.267 Weight 121.8 kg Intake: IV 123 256 81 Pressure Bag 33 36 21 Sodium Chloride 0.9% 1, 90 220 60 000 ml @ 50 mls/hr IV . Q20H [facility] Rx#:[id number] Intake, IV Titration 674.442 602.956 521.267 Amount Cisatracurium 200 mg In 146.457 157.584 183.748 Sodium Chloride 0.9% 180 ml @ 1 MCG/KG/MIN 6.015 mls/hr IV .Q24H [facility] Rx#: [id number] Insulin Regular 100 unit 58.227 40.114 42.437 In Sodium Chloride 0.9% 100 ml @ Per Protocol IV .Q0M [facility] Rx#:[id number] Sodium Chloride 0.9% 500 120 20 100 ml 500 ml @ 20 mls/hr IV .Q24H [facility] Rx#:[id number] fentaNYL (PF). 1,000 mcg 85.258 In Sodium Chloride 0.9% 80 ml @ Per Protocol IV . Q0M [facility] Rx#:[id number] propofoL 1,000 mg In 349.758 300 195.082 Empty Bag 1 bag @ Titrate IV .Q0M [facility] Rx#: [id number] Tube Feeding 180 0 10 Other 30 Output: Urine 70 20 15 Hemodialysis 1200 Other: Voiding Method Indwelling Catheter Indwelling Catheter Indwelling Catheter ABP, PAP, CO, CI - Last Documented Arterial Blood Pressure 123/67 - Exam GENERAL EXAM: Revealed a 55-year-old female, obese, intubated, mechanically ventilated, in prone position, sedated and paralyzed. HEAD: Normocephalic/atraumatic. EENT: PERRLA, EOMI, nonicteric, no neck masses, no JVD, endotracheal tube and orogastric tubes are intact. CHEST: No chest wall deformity. Symmetrical expansion. LUNGS: Crackles bilaterally persist. No rhonchi and no wheezes. CVS: Distant S1 and S2, no S3 gallop, no murmur. ABDOMEN: Obese soft nontender no megaly no rebound no guarding. EXTREMITIES: No clubbing, no edema, no cyanosis, 2+ pulses and upper and lower extremities. Psychiatric: Could not assess. SKIN: No rashes CENTRAL NERVOUS SYSTEM: Sedated, intubated. Could not assess patient is sedated and paralyzed - Labs CBC & Chem 7: 09/17/20 04:01 09/17/20 04:01 Labs: Abnormal Lab Results - Last 24 Hours (Table) 09/16/20 09/16/20 09/16/20 Range/Units 15:12 16:03 18:07 RBC (3.80-5.40) m/uL Hgb (11.4-16.0) gm/dL Hct (34.0-46.0) % Neutrophils # (1.3-7.7) k/uL D-Dimer (<0.60) mg/L FEU ABG Total CO2 (19-24) mmol/L ABG O2 Saturation (94-97) % Sodium (137-145) mmol/L Potassium (3.5-5.1) mmol/L BUN (7-17) mg/dL Creatinine (0.52-1.04) mg/dL Glucose (74-99) mg/dL POC Glucose (mg/dL) 189 H 200 H 184 H (75-99) mg/dL Calcium (8.4-10.2) mg/dL Lactate Dehydrogenase (313-618) U/L C-Reactive Protein (<1.0) mg/dL 09/16/20 09/16/20 09/16/20 Range/Units 19:53 21:04 23:06 RBC (3.80-5.40) m/uL Hgb (11.4-16.0) gm/dL Hct (34.0-46.0) % Neutrophils # (1.3-7.7) k/uL D-Dimer (<0.60) mg/L FEU ABG Total CO2 (19-24) mmol/L ABG O2 Saturation (94-97) % Sodium (137-145) mmol/L Potassium (3.5-5.1) mmol/L BUN (7-17) mg/dL Creatinine (0.52-1.04) mg/dL Glucose (74-99) mg/dL POC Glucose (mg/dL) 132 H 143 H 159 H (75-99) mg/dL Calcium (8.4-10.2) mg/dL Lactate Dehydrogenase (313-618) U/L C-Reactive Protein (<1.0) mg/dL 09/17/20 09/17/20 09/17/20 Range/Units 01:03 03:21 04:01 RBC (3.80-5.40) m/uL Hgb (11.4-16.0) gm/dL Hct (34.0-46.0) % Neutrophils # (1.3-7.7) k/uL D-Dimer 6.83 H (<0.60) mg/L FEU ABG Total CO2 (19-24) mmol/L ABG O2 Saturation (94-97) % Sodium (137-145) mmol/L Potassium (3.5-5.1) mmol/L BUN (7-17) mg/dL Creatinine (0.52-1.04) mg/dL Glucose (74-99) mg/dL POC Glucose (mg/dL) 155 H 147 H (75-99) mg/dL Calcium (8.4-10.2) mg/dL Lactate Dehydrogenase (313-618) U/L C-Reactive Protein (<1.0) mg/dL 09/17/20 09/17/20 09/17/20 Range/Units 04:01 04:01 05:11 RBC 3.70 L (3.80-5.40) m/uL Hgb 10.4 L (11.4-16.0) gm/dL Hct 30.7 L (34.0-46.0) % Neutrophils # 8.3 H (1.3-7.7) k/uL D-Dimer (<0.60) mg/L FEU ABG Total CO2 (19-24) mmol/L ABG O2 Saturation (94-97) % Sodium 132 L (137-145) mmol/L Potassium 3.1 L (3.5-5.1) mmol/L BUN 33 H (7-17) mg/dL Creatinine 4.29 H (0.52-1.04) mg/dL Glucose 135 H (74-99) mg/dL POC Glucose (mg/dL) 122 H (75-99) mg/dL Calcium 7.7 L (8.4-10.2) mg/dL Lactate Dehydrogenase 1913 H (313-618) U/L C-Reactive Protein 1.3 H (<1.0) mg/dL 09/17/20 09/17/20 09/17/20 Range/Units 06:15 06:54 07:39 RBC (3.80-5.40) m/uL Hgb (11.4-16.0) gm/dL Hct (34.0-46.0) % Neutrophils # (1.3-7.7) k/uL D-Dimer (<0.60) mg/L FEU ABG Total CO2 25 H (19-24) mmol/L ABG O2 Saturation 98.0 H (94-97) % Sodium (137-145) mmol/L Potassium (3.5-5.1) mmol/L BUN (7-17) mg/dL Creatinine (0.52-1.04) mg/dL Glucose (74-99) mg/dL POC Glucose (mg/dL) 139 H 164 H (75-99) mg/dL Calcium (8.4-10.2) mg/dL Lactate Dehydrogenase (313-618) U/L C-Reactive Protein (<1.0) mg/dL 09/17/20 09/17/20 Range/Units 10:01 13:37 RBC (3.80-5.40) m/uL Hgb (11.4-16.0) gm/dL Hct (34.0-46.0) % Neutrophils # (1.3-7.7) k/uL D-Dimer (<0.60) mg/L FEU ABG Total CO2 (19-24) mmol/L ABG O2 Saturation (94-97) % Sodium (137-145) mmol/L Potassium (3.5-5.1) mmol/L BUN (7-17) mg/dL Creatinine (0.52-1.04) mg/dL Glucose (74-99) mg/dL POC Glucose (mg/dL) 129 H 157 H (75-99) mg/dL Calcium (8.4-10.2) mg/dL Lactate Dehydrogenase (313-618) U/L C-Reactive Protein (<1.0) mg/dL Microbiology - Last 24 Hours (Table) 09/12/20 11:11 Blood Culture - Preliminary Blood No Growth after 120 hours 09/12/20 11:11 Blood Culture - Preliminary Blood No Growth after 120 hours Assessment and Plan Assessment: Impression: Acute hypoxic respiratory failure secondary to COVID-19 pneumonia and ARDS secondary to COVID-19 pneumonia Acute kidney injury with complete shutdown of urine output/anuria, requiring hemodialysis. Acute diabetic ketoacidosis and COVID-19 pneumonia on her initial presentation. Sepsis secondary to COVID-19 pneumonia Type 2 diabetes poorly controlled. Hemoglobin A1c of 13.6. Sinus tachycardia mostly secondary to volume depletion, and hypovolemia. Elevated inflammatory markers secondary to acute COVID-19 pneumonia History of hypertension. Generalized anxiety disorder. Morbid obesity BMI of 54.2. Increase d-dimer related to COVID-19 pneumonia Recommendation: Continue ventilatory support, presently on PEEP of 20 FiO2 is down to 70%. Continue nutritional support, patient is now on vital hp may consider adding TPN if does not meet requirements. Continue Lovenox. Continue Decadron. Continue hemodialysis daily Continue intermittent prone positions Continue insulin and close monitoring of her sugars. Continue COVID-19 cocktail. Overall prognosis is extremely poor We'll continue to follow. Critical care time is over 30 minutes Time with Patient: Greater than 30
[2020-09-17] MEDS: fentaNYL (PF). 1,000 MCG in SODIUM CHLORIDE 0.9% 80 ML IV SCH (15:20)
[2020-09-17 15:48] LABS: Glucose,Whole Blood 155 mg/dL (75-99)
[2020-09-17] MEDS: NOREPINEPHRINE 8 MG in SODIUM CHLORIDE 0.9% 250 ML IV SCH (16:59)
[2020-09-17 17:24] LABS: Glucose,Whole Blood 137 mg/dL (75-99)
--- NOTE | 2020-09-17 18:38 | XR ---
EXAMINATION TYPE: XR chest 1V portable DATE OF EXAM: 09/17/2020 COMPARISON: 09/16/2020 HISTORY: Check tube placement TECHNIQUE: Single view FINDINGS: Endotracheal tube is 2.5 cm from the ida. There is right jugular catheter with tip in th e superior vena cava. There is nasogastric tube in the stomach. There is pulmonary interstitial and a irspace edema. There are chest leads. IMPRESSION: There is pulmonary edema which is the same or slightly improved compared to yesterday.
[2020-09-17 19:48] LABS: Glucose,Whole Blood 138 mg/dL (75-99)
[2020-09-17] MEDS: CEFEPIME 1 GM in SODIUM CHLORIDE 0.9% 50 ML IVPB SCH (21:07)
[2020-09-17 22:23] LABS: Glucose,Whole Blood 111 mg/dL (75-99)
[2020-09-17 22:46] LABS: Glucose,Whole Blood 198 mg/dL (75-99)
[2020-09-17 23:57] LABS: Glucose,Whole Blood 185 mg/dL (75-99)
[2020-09-18 00:04] LABS: Glucose,Whole Blood 186 mg/dL (75-99)
[2020-09-18 02:02] LABS: Glucose,Whole Blood 148 mg/dL (75-99)
[2020-09-18 04:09] LABS: Glucose,Whole Blood 134 mg/dL (75-99)
[2020-09-18] MEDS: fentaNYL (PF). 1,000 MCG in SODIUM CHLORIDE 0.9% 80 ML IV SCH ×2 (04:23→15:57)
[2020-09-18] MEDS: CISATRACURIUM 200 MG in SODIUM CHLORIDE 0.9% 180 ML IV SCH ×2 (04:24→13:31)
[2020-09-18 04:34] LABS: Basophils # (A) 0.1 k/uL (0-0.2); Basophils % (A) 1 %; Eosinophils # (A) 0.1 k/uL (0-0.7); Eosinophils % (A) 1 %; HCT 30.4 % (34.0-46.0); HGB 9.8 gm/dL (11.4-16.0); Lymphocytes # (A) 1.3 k/uL (1.0-4.8); Lymphocytes % (A) 11 %; MCH 27.1 pg (25.0-35.0); MCHC 32.2 g/dL (31.0-37.0); MCV 84.1 fL (80.0-100.0); Mean Platelet Volume 9.7; Monocytes # (A) 0.5 k/uL (0-1.0); Monocytes % (A) 4 %; Neutrophils # (A) 10.4 k/uL (1.3-7.7); Neutrophils % (A) 82 %; Platelet Count 212 k/uL (150-450); Poikilocytosis Slight; RBC 3.61 m/uL (3.80-5.40); RDW 14.6 % (11.5-15.5); WBC 12.6 k/uL (3.8-10.6)
[2020-09-18 04:46] LABS: Potassium 3.2 mmol/L (3.5-5.1)
[2020-09-18 04:47] LABS: Calcium 8.1 mg/dL (8.4-10.2)
[2020-09-18 05:50] LABS: ABG Base Excess -4.6 mmol/L; ABG HCO3 21 mmol/L (21-25); ABG Oxygen Saturation 93.7 % (94-97); ABG PCO2 38 mmHg (35-45); ABG PH 7.35 (7.35-7.45); ABG PO2 72 mmHg (83-108); ABG TCO2 22 mmol/L (19-24); Allen Test Performed? Yes
[2020-09-18 05:51] LABS: Glucose,Whole Blood 173 mg/dL (75-99)
[2020-09-18] MEDS: INSULIN REGULAR 100 UNIT in SODIUM CHLORIDE 0.9% 100 ML IV SCH (06:07)
[2020-09-18] MEDS: ALBUTEROL HFA INHALER INHALATION SCH ×4 (08:01→20:46)
[2020-09-18] MEDS: SYMBICORT 160-4.5 MCG INHALER INHALATION SCH ×2 (08:01→20:46)
[2020-09-18 08:14] LABS: Glucose,Whole Blood 145 mg/dL (75-99)
[2020-09-18] MEDS: ZINC SULFATE 220 MG CAP PO SCH (09:21)
[2020-09-18] MEDS: CHLORHEXIDINE GLUCONATE 15 ML CUP MUCOUS MEM SCH ×2 (09:21→20:53)
[2020-09-18] MEDS: DEXAMETHASONE SOD PHOSPHATE 10 MG/ML 1 ML VIAL IV SCH ×2 (09:21→20:53)
[2020-09-18] MEDS: METOPROLOL TARTRATE 25 MG TAB PO SCH ×2 (09:21→20:53)
[2020-09-18] MEDS: SODIUM BICARBONATE TAB 650 MG TAB PO SCH ×3 (09:21→20:53)
[2020-09-18] MEDS: ASCORBIC ACID 500 MG TAB PO SCH ×2 (09:21→20:53)
[2020-09-18] MEDS: CHOLECALCIFEROL 25 MCG (1000 IU) TABLET PO SCH (09:21)
[2020-09-18] MEDS: ENOXAPARIN 60 MG/0.6 ML SYRINGE SQ SCH (09:21)
[2020-09-18] MEDS: PANTOPRAZOLE 40 MG/10 ML VIAL IVP SCH (09:22)
--- NOTE | 2020-09-18 10:21 | PN ---
PROGRESS NOTE Patient is seen for followup for acute kidney injury. She is currently hemodialysis dependent. Patient was dialyzed yesterday. We had about 2 L of ultrafiltration. Her FiO2 is down to about 60%. She is again prone today however her catheter can be accessed and we plan to dialyze her again today with goal UF 2-3 L as tolerated. PHYSICAL EXAMINATION: On examination today, blood pressure 154/71, heart rate 65 per minute. She is afebrile. Patient is in prone position. She is not examined. She continues to have significant edema. She is maintained on tube feeds. LABS: Labs are reviewed. Sodium 133, potassium 3.2, chloride 102, BUN 35, creatinine 4.1, hemoglobin 9.8 g/dL. ASSESSMENT: 1. Acute kidney injury, acute tubular necrosis, currently oliguric and dialysis dependent, receiving dialysis on a daily basis, mainly for ultrafiltration. 2. Acute hypoxic respiratory failure secondary to pneumonia/ARDS with some improvement in FiO2 requiring pruning as well. 3. Metabolic acidosis associated with renal failure, status post bicarb drip and currently improved. 4. COVID pneumonia. 5. Hypokalemia, will replace with dialysis. PLAN: Hemodialysis today. Goal UF 2-3 L as tolerated. Replace potassium with dialysis. We will plan for another treatment tomorrow if the patient tolerates it well. MMODL / IJN: [id number] /
--- NOTE | 2020-09-18 11:10 | P.PN ---
Subjective Progress Note Date: 09/18/20 Principal diagnosis: DKA, COVID-19 pneumonia This is a 55-year-old -[place]iss female with history of type 2 diabetes, admitted today through the emergency room with a few days' history of increased shortness of breath, cough, fever, chest x-ray in the ER showed bilateral i nfiltrates consistent with COVID-19 pneumonia in the patient had positive PCR for COVID-19 infection. Patient had significantly abnormal labs on admission, she had an extremely low bicarb, extremely low pH, and marginal oxygenation at best. Patient was admitted to the regular medical floor, and I happened to be rounding on that same floor were and I was notified about this patient having worsening respiratory distress. Evaluated the patient, clearly the patient has DKA and she clearly has acute hypoxic respiratory failure secondary to COVID-19 pneumonia. As soon as I laid eyes on the patient, recommended immediate transfer to the ICU. Patient was placed on BiPAP however she did not tolerate BiPAP well, and when I went back to evaluate the patient in the ICU, she was basically deteriorating, and she was using her accessory muscles, patient was in severe respiratory distress. Hence I recommended immediate intubation and placement on mechanical ventilation. Chest x-ray continued to show bilateral infiltrates consistent with worsening COVID-19 pneumonia ABG showed a pO2 of 59 pCO2 of 42 pH of 7.05 and this was on the 100% FiO2 20 of PEEP tidal volume of 375 rate of 36. Patient will be given more bicarb and she is already on a bicarb drip. She is receiving insulin and she is also receiving IV fluids in the form of 0.9 normal saline. Sugars were 384. Inflammatory markers were added to be extremely high, LDH 2048, and C-reactive protein of 8.7. D-dimer was borderline elevated at 1.84. On 09/12/2020 patient seen in follow-up in the intensive care unit, yesterday she was emergently transferred to the intensive care and intubated and placed on mechanical ventilator. She remains intubated, sedated on mechanical ventilator, currently on assist control mode of ventilation with a rate 36, tidal vital 375, FiO2 100% and PEEP of 20. This might blood gas reveals pO2 of 62, pCO2 40, pH of 7.35 this was done on FiO2 of 80%, her peak airway pressure is 35, in her plateau pressure is around 32. she is sedated on Diprivan and 60 mics per kilo per minute, 0.9 normal saline at 100 ML per hour, insulin drip is at 4 units per hour, and she has 5% dextrose with 3 units of bicarbonate at 100 ML per hour. Today's labs have been reviewed, showing white blood cell count 10.3, hemoglobin of 14.4, d-dimer has increased to 14.31, and her Lovenox was adjusted and increased to 50 mg twice daily, sodium is 137, potassium is 3.7, chloride is 112, CO2 is up to 21, BUN of 16 creatinine is 1.57, LDH is 2618, CRP is 18.2. Pro-Calcitonin level came back elevated at 3.53, suggesting possibility of bacterial infection She received a liter bolus yesterday after intubation. We w ill give the patient additional fluid boluses today. Sputum culture has been sent and is pending, blood cultures have been sent. Patient has been placed in prone position at 8:00 last night, and her oxygenation seems to be improved and she satting 97% on 100% FiO2 and subsequently FiO2 was dropped down to 80%, and PEEP is down to 18. She remains in prone positioning, tolerating it well, she is having low-grade fevers, she is in sinus mechanism with tachycardic on the monitor, not requiring any vasopressor support right now, will start tube feedings today when the patient is placed back over in the supine position On 09/13/2020 patient seen in follow-up in intensive care unit, she remains proned, and at the time of our evaluation patient has already been prone for close to 16 hours and is about to be turned back on her spine. She tolerates prone position quite well, she remains intubated, paralyzed and sedated on mechanical ventilator, current vent settings are assist-control mode of ventilation with a rate of 36, tidal volume 375, FiO2 of 70% and PEEP of 18, this point his blood gases show pO2 of 82, pCO2 of 39, and pH of 7.19. She's currently on D5 W with 3 A of bicarbonate at 75 per hour, Diprivan is a 60 mics per kilo per minute, index is at 2 mics per kilo per minute, and insulin drip is at 6 units per hour, patient has not started tube feedings yet. She is in sinus mechanism, hemodynamically stable, not requiring any vasopressor support. Today's chest x-ray has been reviewed showing bilateral lung infiltrates that appear to be stable. Today's labs have been reviewed showing white blood cell count of 11.1, hemoglobin 13.2, d-dimer is pending, yesterday his d-dimer was 14.3, patient's Lovenox dose was increased to 50 mg every 24 hours. Her renal function continued to worsen, and her creatinine is up to 3.4 on today's labs, BUN is 24, were bicarb concentration is only 13 on today's labs, sodium is 137, potassium is 4.0. AST is up to 77, ALT and alk phos are within normal limits, yesterday set him inflammatory markers with showing up trending LDH at 2618, and CRP of 18.2. Her pro-calcitonin level was increased yesterday at 3.53 and we added empiric antibiotics in the form of Zosyn. Sputum culture has been sent and has shown no growth. Overnight patient remained oliguric, yesterday we gave her additional fluids, however did not improve her renal function and her kidney function continued to get worse. Nephrology consultation has been requested, she has only been producing urine in the order of 5-10 ML per hour, renal ultrasound has been obtained showing no evidence of hydronephrosis bilaterally. On 09/14/2020 patient seen in follow-up in intensive care unit, she remains intubated, sedated and paralyzed, currently on assist control mode of ventilation with a rate of 36, tidal vital 375, FiO2 of 60% and PEEP of 18. This morning's blood gas was reviewed showing pO2 of 60, pCO2 of 43, and pH of 7.32. This was done on FiO2 of 70%, her peak airway pressure is 40, plateau pressures 26. She is currently on D5 with 3 A of bicarbonate at 100 ML per hour, insulin drip is at 7 units per hour, fentanyl drip is a 0.5 mics per kilo per hour, Diprivan and is at 50 mics per kilo per minute, and index is at 2 mics per kilo per minute. She is tolerating tube feedings of vital high-protein at 27 with a goal 27 standard water flushes. Today's chest x-ray has not been completed yet, because the patient has been in prone position for last 16 hours. Patient tolerates prone in quite well, and her oxygenation improves when she is in prone position. However when she is turned over in the supine position to complete chest x-rays and ADL's, patient's O2 sat drops down to low 80s and her FiO2 requirement increases at that time. Today's labs have been reviewed, and there has been further worsening of her renal function, and patient has made almost no urine overnight. Her BUN is 33, and creatinine is 4.87, nephrology is following, her renal ultrasound showed no evidence of hydronephrosis. Her urinalysis showed possibility of urinary tract infection, and patient has been started on cefepime. Urine culture is pending at this time, blood and sputum cultures have been negative. No fevers overnight, she's not requiring any vasopressor support. On 09/15/2020 patient seen in follow-up in intensive care unit, she remains intubated, sedated and paralyzed on assist-control mode of ventilation with a rate of 36, tidal vital 375, FiO2 100% and PEEP of 18, this morning's blood gas reviewed showing pO2 of 58, pCO2 of 45, and pH is 7.35, this was done on FiO2 of 100%. Her peak airway pressures 44, plateau pressures 38, she is on 0.9 normal saline at 50 ML per hour, Diprivan is a 40 mics per kilo per minute, Nimbex drip is a 2 mics per kilo per minute, and fentanyl drip at 0.5 mics per kilo per hour, she is tolerating tube feedings with vital high-protein is 27 with a goal of 27 standard water flushes. She is in sinus mechanism with a rate of 73, she is hemodynamically stable and not requiring any vasopressors. Today's chest x- ray shows ARDS, bilateral airspace opacities, no significant pleural effusion and no pneumothorax. Today's labs have been reviewed, white blood cell count is 9.9, hemoglobin is 11.3, sodium is 134, respiratory electrolytes were within normal limits, and there has been further worsening of her renal function with BUN of 34, creatinine is 4.78, her urine output has remained very poor. Last night she had her first hemodialysis session and no fluid was removed, this morning she is having another hemodialysis treatments and the goal is to remove half a liter of fluid. Her sputum, blood and urine cultures remained negative thus far, patient's pro-calcitonin level came back significantly elevated at 23.5 suggesting evidence of bacterial infection. Patient remains on cefepime for antibiotic coverage, she also remains on Decadron milligrams twice daily, and Lovenox is 50 mg every 24 hours. On 09/18/2020 patient seen in follow-up in the intensive care unit. She remains intubated, sedated and paralyzed on mechanical ventilator on assist control mode with a rate of 36, tidal volume 375, FiO2 of 60% and PEEP of 20, this might blood gas shows pO2 of 72, pCO2 38, and pH is 7.35, today's chest x-ray still showing bilateral airspace disease possibly slightly improved compared yester day's chest x-ray. Patient is currently on multiple drips including 0.9 normal saline at 20 no per hour, Nimbex is at 3 mics per kilo per minute, Diprivan is at 50 mics per kilo per minute, fentanyl drip is at 1 phli per kilo per hour, insulin drip is at 4 units per hour, she is on tube feedings with vital high- protein at a rate of 10 with a goal of 36 and standard water flushes. Patient has been getting hemodialysis treatments, her last treatment was on 09/16/2020 with removal of 1.2 L of fluid. Today's labs have been reviewed, showing white blood cell count of 12.6, hemoglobin of 9.8, last d-dimer from yesterday was 6.83, and patient remains on Lovenox and 50 mg daily, sodium was 133, potassium is 3.2, chloride is 102, CO2 is 21, BUN of 35, creatinine is 4.12. Her last set of inflammatory markers was from yesterday showing improvement although LDH was still elevated at 1913, and CRP was 1.3. She remains on IV Decadron 6 mg twice daily, she is also on cefepime for empiric antibiotic coverage, and so far all her cultures including sputum blood and urine are negative. Patient has been tolerating prone positioning well, and she has been prone up to 16-20 hours on a daily basis. Objective - Vital Signs Vital signs: Vital Signs Temp 97.5 F L 09/18/20 08:00 Pulse 52 L 09/18/20 10:00 Resp 36 H 09/18/20 10:00 BP 129/68 09/17/20 21:28 Pulse Ox 87 L 09/18/20 10:00 Intake & Output 09/17/20 09/18/20 09/18/20 18:59 06:59 18:59 Intake Total 1285.590 972.982 242 Output Total 25 35 Balance 1260.590 937.982 242 Weight 120.6 kg Intake: IV 96 36 12 Pressure Bag 36 36 12 Sodium Chloride 0.9% 1, 60 000 ml @ 50 mls/hr IV . Q20H [facility] Rx#:[id number] Intake, IV Titration 1079.590 726.982 100 Amount Cisatracurium 200 mg In 340.129 202.807 Sodium Chloride 0.9% 180 ml @ 1 MCG/KG/MIN 6.015 mls/hr IV .Q24H [facility] Rx#: [id number] Insulin Regular 100 unit 59.136 31.294 In Sodium Chloride 0.9% 100 ml @ Per Protocol IV .Q0M [facility] Rx#:[id number] Sodium Chloride 0.9% 500 200 20 ml 500 ml @ 20 mls/hr IV .Q24H [facility] Rx#:[id number] fentaNYL (PF). 1,000 mcg 87.803 77.877 In Sodium Chloride 0.9% 80 ml @ Per Protocol IV . Q0M [facility] Rx#:[id number] propofoL 1,000 mg In 392.522 395.004 100 Empty Bag 1 bag @ Titrate IV .Q0M [facility] Rx#: [id number] Tube Feeding 80 120 40 Other 30 90 90 Output: Urine 25 35 Other: Voiding Method Indwelling Catheter Indwelling Catheter ABP, PAP, CO, CI - Last Documented Arterial Blood Pressure 156/72 - Exam GENERAL EXAM: Sedated, intubated, -[place]iss female, in prone position, on assist control mode of ventilation with FiO2 60 percent and PEEP of 20, with a pulse ox of 95% comfortable in no apparent distress. HEAD: Normocephalic/atraumatic. EYES: Normal reaction of pupils, equal size. Conjunctiva pink, sclera white. NOSE: Clear with pink turbinates. THROAT: No erythema or exudates. NECK: No masses, no JVD, no thyroid enlargement, no adenopathy. CHEST: No chest wall deformity. Symmetrical expansion. LUNGS: Equal air entry with bilateral crackles CVS: Regular rate and rhythm, normal S1 and S2, no gallops, no murmurs, no rubs ABDOMEN: Soft, nontender. No hepatosplenomegaly, normal bowel sounds, no guarding or rigidity. EXTREMITIES: No clubbing, no edema, no cyanosis, 2+ pulses and upper and lower extremities. MUSCULOSKELETAL: Muscle strength and tone normal. SPINE: No scoliosis or deformity SKIN: No rashes CENTRAL NERVOUS SYSTEM: Sedated, intubated. No focal deficits, tone is normal in all 4 extremities. - Labs CBC & Chem 7: 09/18/20 04:09 09/18/20 04:09 Labs: Abnormal Lab Results - Last 24 Hours (Table) 09/17/20 09/17/20 09/17/20 Range/Units 13:37 15:46 17:23 WBC (3.8-10.6) k/uL RBC (3.80-5.40) m/uL Hgb (11.4-16.0) gm/dL Hct (34.0-46.0) % Neutrophils # (1.3-7.7) k/uL ABG pO2 (83-108) mmHg ABG O2 Saturation (94-97) % Sodium (137-145) mmol/L Potassium (3.5-5.1) mmol/L Carbon Dioxide (22-30) mmol/L BUN (7-17) mg/dL Creatinine (0.52-1.04) mg/dL Glucose (74-99) mg/dL POC Glucose (mg/dL) 157 H 155 H 137 H (75-99) mg/dL Calcium (8.4-10.2) mg/dL 09/17/20 09/17/20 09/17/20 Range/Units 19:47 22:21 22:45 WBC (3.8-10.6) k/uL RBC (3.80-5.40) m/uL Hgb (11.4-16.0) gm/dL Hct (34.0-46.0) % Neutrophils # (1.3-7.7) k/uL ABG pO2 (83-108) mmHg ABG O2 Saturation (94-97) % Sodium (137-145) mmol/L Potassium (3.5-5.1) mmol/L Carbon Dioxide (22-30) mmol/L BUN (7-17) mg/dL Creatinine (0.52-1.04) mg/dL Glucose (74-99) mg/dL POC Glucose (mg/dL) 138 H 111 H 198 H (75-99) mg/dL Calcium (8.4-10.2) mg/dL 09/17/20 09/18/20 09/18/20 Range/Units 23:55 00:02 02:01 WBC (3.8-10.6) k/uL RBC (3.80-5.40) m/uL Hgb (11.4-16.0) gm/dL Hct (34.0-46.0) % Neutrophils # (1.3-7.7) k/uL ABG pO2 (83-108) mmHg ABG O2 Saturation (94-97) % Sodium (137-145) mmol/L Potassium (3.5-5.1) mmol/L Carbon Dioxide (22-30) mmol/L BUN (7-17) mg/dL Creatinine (0.52-1.04) mg/dL Glucose (74-99) mg/dL POC Glucose (mg/dL) 185 H 186 H 148 H (75-99) mg/dL Calcium (8.4-10.2) mg/dL 09/18/20 09/18/20 09/18/20 Range/Units 04:07 04:09 04:09 WBC 12.6 H (3.8-10.6) k/uL RBC 3.61 L (3.80-5.40) m/uL Hgb 9.8 L (11.4-16.0) gm/dL Hct 30.4 L (34.0-46.0) % Neutrophils # 10.4 H (1.3-7.7) k/uL ABG pO2 (83-108) mmHg ABG O2 Saturation (94-97) % Sodium 133 L (137-145) mmol/L Potassium 3.2 L (3.5-5.1) mmol/L Carbon Dioxide 21 L (22-30) mmol/L BUN 35 H (7-17) mg/dL Creatinine 4.12 H (0.52-1.04) mg/dL Glucose 126 H (74-99) mg/dL POC Glucose (mg/dL) 134 H (75-99) mg/dL Calcium 8.1 L (8.4-10.2) mg/dL 09/18/20 09/18/20 09/18/20 Range/Units 05:45 05:49 08:13 WBC (3.8-10.6) k/uL RBC (3.80-5.40) m/uL Hgb (11.4-16.0) gm/dL Hct (34.0-46.0) % Neutrophils # (1.3-7.7) k/uL ABG pO2 72 L (83-108) mmHg ABG O2 Saturation 93.7 L (94-97) % Sodium (137-145) mmol/L Potassium (3.5-5.1) mmol/L Carbon Dioxide (22-30) mmol/L BUN (7-17) mg/dL Creatinine (0.52-1.04) mg/dL Glucose (74-99) mg/dL POC Glucose (mg/dL) 173 H 145 H (75-99) mg/dL Calcium (8.4-10.2) mg/dL Microbiology - Last 24 Hours (Table) 09/12/20 11:11 Blood Culture - Preliminary Blood No Growth after 120 hours 09/12/20 11:11 Blood Culture - Preliminary Blood No Growth after 120 hours Assessment and Plan Plan: Assessment: #1. Acute hypoxic respiratory failure secondary to COVID-19 pneumonia, transferred to the intensive care unit on 09/11/2020 and intubated and placed on mechanical ventilator on 09/11/2020. Patient received 1 dose of Remdesivir on 09/11/2020, however he says of quick progression of her hypoxic respiratory failure she received Tocilizumab 800 mg on 09/11/2020 On 09/13/2020 patient remains intubated, sedated and paralyzed, currently with FiO2 of 70% and PEEP of 18, patient is being proned for 16 hours per day, tolerates well, oxygenation has improved with prone position On 09/18/2020 patient is intubated, sedated and paralyzed, currently on FiO2 of 60% and PEEP of 20. #2. Acute kidney injury related to ATN, nephrology has been consulted, ultrasound of the kidneys showed no evidence of hydronephrosis. Patient was initiated on hemodialysis on 09/14/2020 #3. Acute diabetic ketoacidosis, resolved #4. Acute metabolic acidosis related to acute DKA, and acute kidney injury. Maintained on bicarbonate infusion #5. Increased d-dimer, related to COVID-19 pneumonia, currently on Lovenox 50 mg twice daily #6. Possible sepsis with increased pro-calcitonin suggesting presence of bacterial infection, cultures have been sent, patient has been started on Zosyn for empiric antibiotics coverage #7. Diabetes mellitus type 2 #8. Morbid obesity with BMI 45.3 kg/m #9. Nonsmoker Plan: Today's chest x-ray in labs and blood gases have been reviewed Continue with current vent settings, we will attempt to further wean down FiO2 to maintain O2 saturations between 89-90% Not ready for paralytic or sedation holiday Continue prone positioning We'll target 16-20 hours on a daily basis Hemodialysis treatments per nephrology Increase tube feedings up to goal Continue current dose Lovenox Continue current dose steroids Cultures remain negative thus far, no clear evidence of infection We'll likely discontinue antibiotics in the next 24-48 hours if there is no clear evidence of infection Continue glucose control Overall prognosis is guarded We'll consult general surgery for tracheostomy and PEG tube placement I performed a history & physical examination of the patient and discussed their management with my nurse practitioner, Renetta Moreira. I reviewed the nurse practitioner's note and agree with the documented findings and plan of care. Lung sounds are positive for diminished breath sounds. The findings and the i mpression was discussed with the patient. I attest to the documentation by the nurse practitioner. Time with Patient: Greater than 30
[2020-09-18 11:27] LABS: Glucose,Whole Blood 119 mg/dL (75-99)
[2020-09-18] MEDS: SODIUM CHLORIDE 0.9% 500 ML 500 ML IV SCH (11:44)
[2020-09-18 14:12] LABS: Glucose,Whole Blood 125 mg/dL (75-99)
[2020-09-18] MEDS ORDERED: VECURONIUM 10 MG VIAL IV ONE (14:20)
[2020-09-18] MEDS ORDERED: PROPOFOL 10 MG/ML 20 ML VIAL IV ONE (14:20)
--- NOTE | 2020-09-18 15:41 | P.GSCN ---
History of Present Illness Consult date: 09/18/20 History of present illness: CHIEF COMPLAINT: COVID-19 pneumonia HISTORY OF PRESENT ILLNESS: This is a 35-year-old male with diabetes mellitus. Patient presents to the hospital with fever and tachycardia and shortness of breath. He is found to have COVID-19 pneumonia. Patient was intubated and placed on mechanical ventilation on 09/11/2020. Patient is also on dialysis treatments for acute kidney injury. Due to patient being on prolonged mechanical ventilation surgical service has been consulted for tracheostomy and PEG tube placement. PAST MEDICAL HISTORY: See list. PAST SURGICAL HISTORY: See list. MEDICATIONS: See list. ALLERGIES: See list. SOCIAL HISTORY: No illicit drug use. REVIEW OF SYSTEMS: Unable to obtain. Patient intubated and sedated PHYSICAL EXAM: VITAL SIGNS: Reviewed GENERAL: Well-developed in no acute distress. HEENT: No sclera icterus. Extraocular movements grossly intact. Moist buccal mucosa. Head is atraumatic, normocephalic. No nasal drainage. ABDOMEN: Soft. Nontender. Nondistended NEUROLOGIC: Intubated and sedated LABORATORY DATA: WBC 12.6 hemoglobin 9.8 platelets 212 sodium 132 potassium 3.2 creatinine 4.12 Albumin 1.9 IMAGING: ASSESSMENT: 1. Acute hypoxic respiratory failure with prolonged mechanical ventilation due to COVID-19 pneumonia 2. Severe protein calorie malnutrition PLAN: -Patient scheduled for tracheostomy and PEG tube placement today with Dr. Zhang Physician Emergency Department Rn note has been reviewed by physician. Signing provider agrees with the documented findings, assessment, and plan of care. Past Medical History Past Medical History: Diabetes Mellitus History of Any Multi-Drug Resistant Organisms: None Reported Past Surgical History: Section, Tubal Ligation Past Psychological History: No Psychological Hx Reported Smoking Status: Never smoker Past Alcohol Use History: Occasional Past Drug Use History: None Reported Medications and Allergies Home Medications Medication Instructions Recorded Confirmed Type metFORMIN HCL 1,000 mg PO BID 09/10/20 09/10/20 History sitaGLIPtin PHOSPHATE [Januvia] 100 mg PO DAILY 09/10/20 09/10/20 History Allergies Allergy/AdvReac Type Severity Reaction Status Date / Time No Known Allergies Allergy Verified 09/10/20 15:23 Surgical - Exam Vital Signs Temp Pulse Resp BP Pulse Ox 101.5 F H 129 H 24 132/106 98 09/10/20 12:43 09/10/20 12:43 09/10/20 12:43 09/10/20 12:43 09/10/20 12:43 Results - Labs 09/18/20 04:09 09/18/20 04:09 Abnormal Lab Results - Last 24 Hours (Table) 09/17/20 09/17/20 09/17/20 Range/Units 15:46 17:23 19:47 WBC (3.8-10.6) k/uL RBC (3.80-5.40) m/uL Hgb (11.4-16.0) gm/dL Hct (34.0-46.0) % Neutrophils # (1.3-7.7) k/uL ABG pO2 (83-108) mmHg ABG O2 Saturation (94-97) % Sodium (137-145) mmol/L Potassium (3.5-5.1) mmol/L Carbon Dioxide (22-30) mmol/L BUN (7-17) mg/dL Creatinine (0.52-1.04) mg/dL Glucose (74-99) mg/dL POC Glucose (mg/dL) 155 H 137 H 138 H (75-99) mg/dL Calcium (8.4-10.2) mg/dL 09/17/20 09/17/20 09/17/20 Range/Units 22:21 22:45 23:55 WBC (3.8-10.6) k/uL RBC (3.80-5.40) m/uL Hgb (11.4-16.0) gm/dL Hct (34.0-46.0) % Neutrophils # (1.3-7.7) k/uL ABG pO2 (83-108) mmHg ABG O2 Saturation (94-97) % Sodium (137-145) mmol/L Potassium (3.5-5.1) mmol/L Carbon Dioxide (22-30) mmol/L BUN (7-17) mg/dL Creatinine (0.52-1.04) mg/dL Glucose (74-99) mg/dL POC Glucose (mg/dL) 111 H 198 H 185 H (75-99) mg/dL Calcium (8.4-10.2) mg/dL 09/18/20 09/18/20 09/18/20 Range/Units 00:02 02:01 04:07 WBC (3.8-10.6) k/uL RBC (3.80-5.40) m/uL Hgb (11.4-16.0) gm/dL Hct (34.0-46.0) % Neutrophils # (1.3-7.7) k/uL ABG pO2 (83-108) mmHg ABG O2 Saturation (94-97) % Sodium (137-145) mmol/L Potassium (3.5-5.1) mmol/L Carbon Dioxide (22-30) mmol/L BUN (7-17) mg/dL Creatinine (0.52-1.04) mg/dL Glucose (74-99) mg/dL POC Glucose (mg/dL) 186 H 148 H 134 H (75-99) mg/dL Calcium (8.4-10.2) mg/dL 09/18/20 09/18/20 09/18/20 Range/Units 04:09 04:09 05:45 WBC 12.6 H (3.8-10.6) k/uL RBC 3.61 L (3.80-5.40) m/uL Hgb 9.8 L (11.4-16.0) gm/dL Hct 30.4 L (34.0-46.0) % Neutrophils # 10.4 H (1.3-7.7) k/uL ABG pO2 72 L (83-108) mmHg ABG O2 Saturation 93.7 L (94-97) % Sodium 133 L (137-145) mmol/L Potassium 3.2 L (3.5-5.1) mmol/L Carbon Dioxide 21 L (22-30) mmol/L BUN 35 H (7-17) mg/dL Creatinine 4.12 H (0.52-1.04) mg/dL Glucose 126 H (74-99) mg/dL POC Glucose (mg/dL) (75-99) mg/dL Calcium 8.1 L (8.4-10.2) mg/dL 09/18/20 09/18/20 09/18/20 Range/Units 05:49 08:13 11:26 WBC (3.8-10.6) k/uL RBC (3.80-5.40) m/uL Hgb (11.4-16.0) gm/dL Hct (34.0-46.0) % Neutrophils # (1.3-7.7) k/uL ABG pO2 (83-108) mmHg ABG O2 Saturation (94-97) % Sodium (137-145) mmol/L Potassium (3.5-5.1) mmol/L Carbon Dioxide (22-30) mmol/L BUN (7-17) mg/dL Creatinine (0.52-1.04) mg/dL Glucose (74-99) mg/dL POC Glucose (mg/dL) 173 H 145 H 119 H (75-99) mg/dL Calcium (8.4-10.2) mg/dL 09/18/20 Range/Units 14:10 WBC (3.8-10.6) k/uL RBC (3.80-5.40) m/uL Hgb (11.4-16.0) gm/dL Hct (34.0-46.0) % Neutrophils # (1.3-7.7) k/uL ABG pO2 (83-108) mmHg ABG O2 Saturation (94-97) % Sodium (137-145) mmol/L Potassium (3.5-5.1) mmol/L Carbon Dioxide (22-30) mmol/L BUN (7-17) mg/dL Creatinine (0.52-1.04) mg/dL Glucose (74-99) mg/dL POC Glucose (mg/dL) 125 H (75-99) mg/dL Calcium (8.4-10.2) mg/dL Microbiology - Last 24 Hours (Table) 09/12/20 11:11 Blood Culture - Final Blood No Growth after 144 hours 09/12/20 11:11 Blood Culture - Final Blood No Growth after 144 hours Diabetes panel 09/18/20 Range/Units 04:09 Sodium 133 L (137-145) mmol/L Potassium 3.2 L (3.5-5.1) mmol/L Chloride 102 (98-107) mmol/L Carbon Dioxide 21 L (22-30) mmol/L BUN 35 H (7-17) mg/dL Creatinine 4.12 H (0.52-1.04) mg/dL Glucose 126 H (74-99) mg/dL Calcium 8.1 L (8.4-10.2) mg/dL Calcium panel 09/18/20 Range/Units 04:09 Calcium 8.1 L (8.4-10.2) mg/dL Pituitary panel 09/18/20 Range/Units 04:09 Sodium 133 L (137-145) mmol/L Potassium 3.2 L (3.5-5.1) mmol/L Chloride 102 (98-107) mmol/L Carbon Dioxide 21 L (22-30) mmol/L BUN 35 H (7-17) mg/dL Creatinine 4.12 H (0.52-1.04) mg/dL Glucose 126 H (74-99) mg/dL Calcium 8.1 L (8.4-10.2) mg/dL Adrenal panel 09/18/20 Range/Units 04:09 Sodium 133 L (137-145) mmol/L Potassium 3.2 L (3.5-5.1) mmol/L Chloride 102 (98-107) mmol/L Carbon Dioxide 21 L (22-30) mmol/L BUN 35 H (7-17) mg/dL Creatinine 4.12 H (0.52-1.04) mg/dL Glucose 126 H (74-99) mg/dL Calcium 8.1 L (8.4-10.2) mg/dL
--- NOTE | 2020-09-18 15:45 | P.OP ---
Date of Procedure: 09/18/20 Preoperative Diagnosis: Respiratory failure Malnutrition Postoperative Diagnosis: Respiratory failure Malnutrition Procedure(s) Performed: Tracheostomy PEG Anesthesia: JUAN ALBERTO Surgeon: Collins Zhang Estimated Blood Loss (ml): 5 Pathology: none sent Condition: stable Disposition: PACU Description of Procedure: The patient's placed on the bed in the supine position. The patient received general anesthesia. The neck was prepped and draped in usual sterile fashion. A standard transverse skin incision was made approximately 2 cm above the sternal notch. Using electrocautery the subcutaneous tissues were divided. The platysma was divided. A Wheatlander retractor was placed in the wound. Next the strap muscles were divided in the midline. Another weatlander retractor was placed the wound. The pretracheal fat was then divided with left cautery. The trachea was exposed. At this point the [employer] advance the and the tracheal tube into the right mainstem bronchus. The balloon was inflated. A tracheotomy was then performed between the second and third tracheal rings. The perivascular tissues a gracilis the trachea. The endotracheal tube was brought back under direct vision. And then the #8 Portex tracheostomy tube was placed into the trachea. End-tidal CO2 was confirmed. The patient had been connected to the ventilator. The patient was ventilated satisfactory. The skin incision site was then closed with 3-0 nylon after the retractors were withdrawn. An umbilical tie was used to secure the tracheostomy tube. Next the gastroscope placed oropharynx passed in the esophagus and stomach. There is no evidence of any outlet obstruction. Stomach was insufflated with air. The light reflux seen the anterior abdominal wall. The abdomen was prepped and draped usual fashion. The skin was incised. And the needles placed and stomach under direct visualization. The needle was snared. And the wires placed through the needle and the wire was snared and brought the oropharynx. The PEG tube was placed over top the wire brought down to the stomach. The PEG tube was secured. At the 3 cm lauren. The one-piece bolster was used. Patient tolerated procedure well.
--- NOTE | 2020-09-18 16:33 | XR ---
EXAMINATION TYPE: XR chest 1V DATE OF EXAM: 09/18/2020 CLINICAL HISTORY: Difficulty breathing progress study. TECHNIQUE: Single AP portable semi-upright view of the chest is obtained. COMPARISON: Chest x-ray from one day earlier and older studies. FINDINGS: New tracheostomy tube. Interval removal of endotracheal and orogastric tubes. Stable right internal jugular large bore catheter. Bilateral multifocal and confluent opacities redemonstrated. Cardiac silhouette size stable and withi n normal limits. Osseous structures are intact. IMPRESSION: New Tracheostomy tube. Other findings stable. Bilateral multifocal and confluent opacitie s consistent with covid-19 infection.
[2020-09-18 18:17] LABS: Glucose,Whole Blood 213 mg/dL (75-99)
[2020-09-18 20:04] LABS: Glucose,Whole Blood 160 mg/dL (75-99)
[2020-09-18] MEDS: CEFEPIME 1 GM in SODIUM CHLORIDE 0.9% 50 ML IVPB SCH (20:56)
[2020-09-18 21:09] LABS: Glucose,Whole Blood 135 mg/dL (75-99)
[2020-09-18] MEDS: NOREPINEPHRINE 8 MG in SODIUM CHLORIDE 0.9% 250 ML IV SCH (21:16)
[2020-09-18 22:14] LABS: Glucose,Whole Blood 140 mg/dL (75-99)
[2020-09-19 00:24] LABS: Glucose,Whole Blood 174 mg/dL (75-99)
[2020-09-19] MEDS: fentaNYL (PF). 1,000 MCG in SODIUM CHLORIDE 0.9% 80 ML IV SCH (00:35)
[2020-09-19 02:30] LABS: Glucose,Whole Blood 182 mg/dL (75-99)
[2020-09-19] MEDS: CISATRACURIUM 200 MG in SODIUM CHLORIDE 0.9% 180 ML IV SCH (03:51)
[2020-09-19 04:17] LABS: Glucose,Whole Blood 198 mg/dL (75-99)
[2020-09-19 05:27] LABS: Allen Test Performed? Yes
[2020-09-19 05:28] LABS: ABG Base Excess -6.7 mmol/L; ABG HCO3 19 mmol/L (21-25); ABG PCO2 37 mmHg (35-45); ABG PH 7.33 (7.35-7.45); ABG PO2 85 mmHg (83-108); ABG TCO2 21 mmol/L (19-24)
[2020-09-19 05:47] LABS: HCT 28.1 % (34.0-46.0); HGB 9.6 gm/dL (11.4-16.0); MCH 28.4 pg (25.0-35.0); MCHC 34.1 g/dL (31.0-37.0); MCV 83.4 fL (80.0-100.0); Mean Platelet Volume 9.7; Platelet Count 200 k/uL (150-450); Poikilocytosis Slight; RBC 3.36 m/uL (3.80-5.40); RDW 14.4 % (11.5-15.5); WBC 14.3 k/uL (3.8-10.6)
[2020-09-19 05:48] LABS: C Reactive Protein 1.1 mg/dL (<1.0); Calcium 8.5 mg/dL (8.4-10.2); Potassium 3.5 mmol/L (3.5-5.1)
--- NOTE | 2020-09-19 06:07 | XR ---
EXAMINATION TYPE: XR chest 1V portable DATE OF EXAM: 09/19/2020 CLINICAL HISTORY: Difficulty breathing and covid progress study. TECHNIQUE: Single AP portable semiupright view of the chest is obtained. COMPARISON: Chest x-ray from one day earlier and older studies. FINDINGS: New tracheostomy tube. Stable right internal jugular large bore catheter. Bilateral multifocal and confluent opacities redemonstrated. Cardiac silhouette size stable more prom inent on current study, upper limits of normal. Osseous structures are intact. IMPRESSION: Bilateral multifocal and confluent opacities consistent with covid-19 infection redemonst rated. Some improved aeration periphery of left lung but worsening opacities throughout right lung no taj from one day earlier.
[2020-09-19 06:11] LABS: Glucose,Whole Blood 183 mg/dL (75-99)
--- NOTE | 2020-09-19 07:37 | P.PN ---
Subjective Progress Note Date: 09/18/20 HISTORY OF PRESENT ILLNESS 35-year-old female patient of Dr. Arroyo with past medical history of type 2 diabetes comes in with acute shortness of breath associated with high light s ugars. Patient on admission was found to have a fever of 101.5 pulse rate 125 respiratory rate 20. Blood pressure 132/106. On chest x-ray obtained in the ER suggestive of bilateral infiltrates concerning for call with pneumonia. COVID PCR was positive. On admissions patient had an ABG with a pH of 7.14 pCO2 of 20, pO2 of 59, bicarb of 7. Patient's blood sugar on admission was 424 on assessment today patient's blood work patient had a sodium 135 potassium 5.4 chloride 123 bicarb less than 5 and creatinine 0.73. D-dimer was elevated on admission patient 9 28 patient given 1 L of IV fluids followed by normal saline running at 200 mL/h. Patient was positive for acetone on admission. She will anion gap closed and was switched to D5NS. Insulin drip was continued during the night and was switched to patient's home medication this morning. One dose of remdesiver was ordered. Apparently around noon, A- team was called on the patient secondary to hypoxia patient's oxygen saturation dropped to the 70s and 80s on 100% nonrebreather. Patient was switched to BiPAP on 18/12 and is doing better o FiO2 of 80%. ABG was obtained and ph was 7. 14 pCO2 of 28 bicarb of 7 pO2 of 17. Patient noted to have uncompensated metabolic acidosis with compensated respiratory alkalosis. Stat dose of 1 amp bicarb was given and followed by sodium bicarbonate drip. Insulin drip restarted. Patient's initiated on dexamethasone 6 mg IV twice a day. Potassium phosphate ordered as phosphorus is low. Patient's repeat blood gases suggest a pH of 7.25, CO2 32 pO2 of 72 bicarb 14. I will not normal saline at 100 mL/h as patient's anion gap has increased. Patient given 1 dose of 2 mg of morphine with improvement in respiratory rate. One dose of Ativan 0.5 mg was given. Xanax 0.25 twice a day along with Ativan 0.5 IV every 6 hours ordered for the patient. Vitals were evaluated patient pulse 129 [id number]. She was moved to the ICU. Precedex drip was initiated. Lopressor was initiated at 25 twice a day. Metoprolol tartrate 5 mg IV every 6 hours. Systolic blood pressure more than 160. Started chest x-ray was obtained and suggest stable bilateral consolidation suggestive of COVID-19 pneumonia. 09/12 patient is seen in the ICU is currently mechanically ventilated and sedated on vent settings of respiratory rate 36, tidal volume 375 FiO2 80% PEEP of 18.. Vital signs reviewed patient had a temp of 100.4 pulse 150 respiratory rate 36 oxygen saturation 95% on 80% on fio2 .'s labs are reviewed which patient had a d-dimer 1.84 that is increased to 14.3. Arterial Blood gas suggest ph 7.35, CO2 40, po2 62, . Her BMP suggest a sodium 135 potassium 3.7 chloride 112 bicarb 21 creatinine 1.57 for calcitonin is 3.5 CRP is increased from 8.78.2 LDH is increased to 2614. Patient remains on Pneumovax, propofol drip. Lovenox increased to 50 subcu twice a day. Patient received 2 L of IV fluids. Continue IV fluids at 100 mL/h. Bicarb drip discontinued patient initiated on Zosyn 3.375 every 8 hours. Continue insulin drip at 4 units per hour. Patient is currently in prone positioning 09/13: Patient evaluated in the ICU remains on Ventilation continues to be sedated, in prone position. Vent settings are respiratory rate 36, tidal vital 375, FiO2 70% PEEP of 18. ABG shows pO2 of 82, PCO2 of 39, pH is 7.19. Latest labs show WBC 11.1, hemoglobin 13.2, d-dimer still pending, but yesterday was up to 14.3. Creatinine up to 3.4, BUN 24 sodium 137, potassium 4.0. Patient's urine output has been low, nephrology on consult. Bicarb drip increased to 100 miles an hour, receiving another liter of normal saline, she did have a ultrasound that showed unremarkable bilateral kidneys. Repeat chest x-ray showed bilateral lung infiltrates that are stable. Anion gap has closed, will start Lantus 10 units at at bedtime Novolog every 6 hours. 09/14: Patient is seen in the ICU, still currently mechanically ventilated and sedated. She continues in the prone position. Her oxygen quickly drops if she is not in prone. Patient's kidney function has worsened. Laboratory values show creatinine of 4.87, BUN 33, LDH 2191, C-reactive protein 2.7. ABG shows pH 7.32, pO2 of 60, pCO2 43. Patient is making almost no urine overnight. Nephrology is following patient continues on cefepime for urinary tract infection, culture is still pending. Vascular has been consulted for placement of temporary hemodialysis catheter for plans for dialysis. 09/15: Patient evaluated in the ICU, continues to be mechanically ventilated and sedated on assist control ventilation rate of 36, tidal volume 375, FiO2 100% and PEEP of 18. ABG today shows pO2 58, pCO2 of 45, and pH 7.35. She continues on tube feedings. Yesterday patient underwent ultrasound-guided right internal jugular non-tunneled hemodialysis catheter placement. Patient underwent hemodialysis treatment last night and plans have another hemodialysis treatment today. She continues to make almost no urine. She continues on cefepime for antibiotic coverage, and continues on Decadron and Lovenox. 09/16: Patient seen on follow-up remains in the ICU mechanically ventilated and sedated. She continues on assist control rate of 36, tidal volume 375, FiO2 100% and PEEP of 20. PEEP had to be increased due to patient had to be in supine position for dialysis, will go back to prone position once dialysis is complete. ABG shows pH 7.32, pCO2 49, PaO2 61. Laboratory values showed WBC 11.2, hemoglobin 11, sodium 134, creatinine 4.44, BUN 38. Urine culture shows no growth, blood cultures show no growth to date. Repeat chest x-ray shows bilateral pleural effusions, correlate for ARDS, pulmonary edema, diffuse pneumonia, findings are stable from last exam. Patient does not require any pressors, blood pressure 133/57, heart rate 78. 5/16: Patient was evaluated in the ICU today for follow-up. She continues to be intubated and on mechanical ventilation. Current vent settings are tidal volume 375, FiO2 100% and PEEP of 20. ABG shows pH 7.37, pCO2 40, pO2 102. She continues with intermittent prone positioning. Patient continues to have almost no urine output, maintained on dialysis. Patient received dialysis yesterday without complication. Laboratory values revealed WBC 10.3, hemoglobin 10.4, sodium 132, potassium 3.1, BUN 33, creatinine 4.29, LDH 1913, C-reactive protein 1.3. Urine and sputum cultures are negative, blood cultures show no growth to date. Consult placed to dietary to start TPN[ ] 09/18: She remains in the intensive care unit intubated and on mechanical ventilation with tidal volume 375, FiO2 60 and PEEP of 20. Patient is being prone to daily at approximately 16 hours per day. Pulmonary medicine has added in Dr. Zhang to do PEG tube and trach today. Patient is not on vasopressors. Repeat blood work reveals WBC 12.6, hemoglobin 9.8, platelet count 212. Sodium 133, potassium 3.2, chloride 102, CO2 21, BUN 35 and creatinine 4.12. Blood sugar 126. Patient underwent hemodialysis yesterday with removal of 2 L and is scheduled again today with goal of 2-3 L and is scheduled again tomorrow. REVIEW OF SYSTEMS Unable to obtain due to intubation. PHYSICAL EXAMINATION Gen: This is is a 35-year-old black female, patient is intubated and on mechanical ventilation, patient is currently in prone position. She appears to be comfortable. Full physical exam was deferred to regional account manager due to Covid 19 and intubation. ASSESSMENT AND PLAN 1. Acute hypoxic respiratory failure secondary to Covid 19 pneumonia and possible bacterial pneumonia. Patient was intubated on September 11. She is status post 1 dose of Remdesivir and 1 dose of Tocilizumab. Continue pronating, Ventolin inhaler 4 times daily, Symbicort twice daily, cefepime 1 g IV piggyback every 24 hours, Demadex 6 kg IV twice daily, Lovenox 50 mg subcu daily, supplements. Patient is scheduled for PEG tube and trach insertion today. 2. Acute diabetic ketoacidosis secondary to Covid 19 pneumonia. Patient was status post 3 L of IV fluid. Anion gap closed. Continue.Patient is currently on insulin drip. 3. Metabolic encephalopathy secondary to Covid 19 and DKA. 4. Sepsis secondary to Covid 19 pneumonia. Continue as in #1. 5. Acute metabolic acidosis secondary t acute DKA, Covid 19 and acute kidney injury. 6. Diabetes mellitus type 2 uncontrolled with A1c 13.6. 7. Hypophosphatemia status post replacement. 8. Hyperkalemia secondary to DKA, resolved. 9. Sinus tachycardia secondary to sepsis, volume deficiency.Continue Lopressor 25 mg twice daily. 10. Acute kidney injury secondary to ATN secondary to Covid 19 and DKA. Patient has been started on hemodialysis. 11. Hypertension. 12. Morbid obesity with BMI of 53. 13. DVT prophylaxis. Lovenox. 14. GI prophylaxis. Protonix 40 mg IV push daily. CODE STATUS: Full code Prognosis guarded. Impression and plan of care have been directed as dictated by the signing physician. Kimberly Boswell nurse practitioner acting as scribe for signing physician. Objective - Vital Signs Vital signs: Vital Signs Temp 97.8 F 09/18/20 04:00 Pulse 65 09/18/20 07:00 Resp 36 H 09/18/20 07:00 BP 129/68 09/17/20 21:28 Pulse Ox 96 09/18/20 07:00 Intake & Output 09/17/20 09/18/20 09/18/20 18:59 06:59 18:59 Intake Total 1285.590 972.982 113 Output Total 25 35 Balance 1260.590 937.982 113 Weight 120.6 kg Intake: IV 96 36 3 Pressure Bag 36 36 3 Sodium Chloride 0.9% 1, 60 000 ml @ 50 mls/hr IV . Q20H [facility] Rx#:[id number] Intake, IV Titration 1079.590 726.982 100 Amount Cisatracurium 200 mg In 340.129 202.807 Sodium Chloride 0.9% 180 ml @ 1 MCG/KG/MIN 6.015 mls/hr IV .Q24H [facility] Rx#: [id number] Insulin Regular 100 unit 59.136 31.294 In Sodium Chloride 0.9% 100 ml @ Per Protocol IV .Q0M [facility] Rx#:[id number] Sodium Chloride 0.9% 500 200 20 ml 500 ml @ 20 mls/hr IV .Q24H [facility] Rx#:[id number] fentaNYL (PF). 1,000 mcg 87.803 77.877 In Sodium Chloride 0.9% 80 ml @ Per Protocol IV . Q0M [facility] Rx#:[id number] propofoL 1,000 mg In 392.522 395.004 100 Empty Bag 1 bag @ Titrate IV .Q0M [facility] Rx#: [id number] Tube Feeding 80 120 10 Other 30 90 Output: Urine 25 35 Other: Voiding Method Indwelling Catheter Indwelling Catheter ABP, PAP, CO, CI - Last Documented Arterial Blood Pressure 154/71 - Labs CBC & Chem 7: 09/19/20 05:15 09/19/20 05:15 Labs: Abnormal Lab Results - Last 24 Hours (Table) 09/17/20 09/17/20 09/17/20 Range/Units 13:37 15:46 17:23 WBC (3.8-10.6) k/uL RBC (3.80-5.40) m/uL Hgb (11.4-16.0) gm/dL Hct (34.0-46.0) % Neutrophils # (1.3-7.7) k/uL ABG pO2 (83-108) mmHg ABG O2 Saturation (94-97) % Sodium (137-145) mmol/L Potassium (3.5-5.1) mmol/L Carbon Dioxide (22-30) mmol/L BUN (7-17) mg/dL Creatinine (0.52-1.04) mg/dL Glucose (74-99) mg/dL POC Glucose (mg/dL) 157 H 155 H 137 H (75-99) mg/dL Calcium (8.4-10.2) mg/dL 09/17/20 09/17/20 09/17/20 Range/Units 19:47 22:21 22:45 WBC (3.8-10.6) k/uL RBC (3.80-5.40) m/uL Hgb (11.4-16.0) gm/dL Hct (34.0-46.0) % Neutrophils # (1.3-7.7) k/uL ABG pO2 (83-108) mmHg ABG O2 Saturation (94-97) % Sodium (137-145) mmol/L Potassium (3.5-5.1) mmol/L Carbon Dioxide (22-30) mmol/L BUN (7-17) mg/dL Creatinine (0.52-1.04) mg/dL Glucose (74-99) mg/dL POC Glucose (mg/dL) 138 H 111 H 198 H (75-99) mg/dL Calcium (8.4-10.2) mg/dL 09/17/20 09/18/20 09/18/20 Range/Units 23:55 00:02 02:01 WBC (3.8-10.6) k/uL RBC (3.80-5.40) m/uL Hgb (11.4-16.0) gm/dL Hct (34.0-46.0) % Neutrophils # (1.3-7.7) k/uL ABG pO2 (83-108) mmHg ABG O2 Saturation (94-97) % Sodium (137-145) mmol/L Potassium (3.5-5.1) mmol/L Carbon Dioxide (22-30) mmol/L BUN (7-17) mg/dL Creatinine (0.52-1.04) mg/dL Glucose (74-99) mg/dL POC Glucose (mg/dL) 185 H 186 H 148 H (75-99) mg/dL Calcium (8.4-10.2) mg/dL 09/18/20 09/18/20 09/18/20 Range/Units 04:07 04:09 04:09 WBC 12.6 H (3.8-10.6) k/uL RBC 3.61 L (3.80-5.40) m/uL Hgb 9.8 L (11.4-16.0) gm/dL Hct 30.4 L (34.0-46.0) % Neutrophils # 10.4 H (1.3-7.7) k/uL ABG pO2 (83-108) mmHg ABG O2 Saturation (94-97) % Sodium 133 L (137-145) mmol/L Potassium 3.2 L (3.5-5.1) mmol/L Carbon Dioxide 21 L (22-30) mmol/L BUN 35 H (7-17) mg/dL Creatinine 4.12 H (0.52-1.04) mg/dL Glucose 126 H (74-99) mg/dL POC Glucose (mg/dL) 134 H (75-99) mg/dL Calcium 8.1 L (8.4-10.2) mg/dL 09/18/20 09/18/20 09/18/20 Range/Units 05:45 05:49 08:13 WBC (3.8-10.6) k/uL RBC (3.80-5.40) m/uL Hgb (11.4-16.0) gm/dL Hct (34.0-46.0) % Neutrophils # (1.3-7.7) k/uL ABG pO2 72 L (83-108) mmHg ABG O2 Saturation 93.7 L (94-97) % Sodium (137-145) mmol/L Potassium (3.5-5.1) mmol/L Carbon Dioxide (22-30) mmol/L BUN (7-17) mg/dL Creatinine (0.52-1.04) mg/dL Glucose (74-99) mg/dL POC Glucose (mg/dL) 173 H 145 H (75-99) mg/dL Calcium (8.4-10.2) mg/dL Microbiology - Last 24 Hours (Table) 09/12/20 11:11 Blood Culture - Preliminary Blood No Growth after 120 hours 09/12/20 11:11 Blood Culture - Preliminary Blood No Growth after 120 hours
[2020-09-19] MEDS: ALBUTEROL HFA INHALER INHALATION SCH ×4 (08:19→19:18)
[2020-09-19] MEDS: SYMBICORT 160-4.5 MCG INHALER INHALATION SCH ×2 (08:20→19:19)
[2020-09-19] MEDS: ZINC SULFATE 220 MG CAP PO SCH (08:56)
[2020-09-19] MEDS: CHOLECALCIFEROL 25 MCG (1000 IU) TABLET PO SCH (08:56)
[2020-09-19] MEDS: SODIUM BICARBONATE TAB 650 MG TAB PO SCH ×3 (08:57→20:18)
[2020-09-19] MEDS: ASCORBIC ACID 500 MG TAB PO SCH ×2 (08:57→20:18)
[2020-09-19] MEDS: PANTOPRAZOLE 40 MG/10 ML VIAL IVP SCH (08:57)
[2020-09-19] MEDS: METOPROLOL TARTRATE 25 MG TAB PO SCH ×2 (08:57→20:18)
[2020-09-19] MEDS: ENOXAPARIN 60 MG/0.6 ML SYRINGE SQ SCH (08:57)
[2020-09-19] MEDS: DEXAMETHASONE SOD PHOSPHATE 10 MG/ML 1 ML VIAL IV SCH ×2 (08:57→20:18)
[2020-09-19] MEDS: CHLORHEXIDINE GLUCONATE 15 ML CUP MUCOUS MEM SCH ×2 (08:57→20:18)
--- NOTE | 2020-09-19 09:59 | P.PN ---
Subjective Progress Note Date: 09/19/20 Principal diagnosis: DKA, COVID-19 pneumonia This is a 55-year-old -[place] female with history of type 2 diabetes, admitted today through the emergency room with a few days' history of increased shortness of breath, cough, fever, chest x-ray in the ER showed bilateral i nfiltrates consistent with COVID-19 pneumonia in the patient had positive PCR for COVID-19 infection. Patient had significantly abnormal labs on admission, she had an extremely low bicarb, extremely low pH, and marginal oxygenation at best. Patient was admitted to the regular medical floor, and I happened to be rounding on that same floor were and I was notified about this patient having worsening respiratory distress. Evaluated the patient, clearly the patient has DKA and she clearly has acute hypoxic respiratory failure secondary to COVID-19 pneumonia. As soon as I laid eyes on the patient, recommended immediate transfer to the ICU. Patient was placed on BiPAP however she did not tolerate BiPAP well, and when I went back to evaluate the patient in the ICU, she was basically deteriorating, and she was using her accessory muscles, patient was in severe respiratory distress. Hence I recommended immediate intubation and placement on mechanical ventilation. Chest x-ray continued to show bilateral infiltrates consistent with worsening COVID-19 pneumonia ABG showed a pO2 of 59 pCO2 of 42 pH of 7.05 and this was on the 100% FiO2 20 of PEEP tidal volume of 375 rate of 36. Patient will be given more bicarb and she is already on a bicarb drip. She is receiving insulin and she is also receiving IV fluids in the form of 0.9 normal saline. Sugars were 384. Inflammatory markers were added to be extremely high, LDH 2048, and C-reactive protein of 8.7. D-dimer was borderline elevated at 1.84. On 09/12/2020 patient seen in follow-up in the intensive care unit, yesterday she was emergently transferred to the intensive care and intubated and placed on mechanical ventilator. She remains intubated, sedated on mechanical ventilator, currently on assist control mode of ventilation with a rate 36, tidal vital 375, FiO2 100% and PEEP of 20. This might blood gas reveals pO2 of 62, pCO2 40, pH of 7.35 this was done on FiO2 of 80%, her peak airway pressure is 35, in her plateau pressure is around 32. she is sedated on Diprivan and 60 mics per kilo per minute, 0.9 normal saline at 100 ML per hour, insulin drip is at 4 units per hour, and she has 5% dextrose with 3 units of bicarbonate at 100 ML per hour. Today's labs have been reviewed, showing white blood cell count 10.3, hemoglobin of 14.4, d-dimer has increased to 14.31, and her Lovenox was adjusted and increased to 50 mg twice daily, sodium is 137, potassium is 3.7, chloride is 112, CO2 is up to 21, BUN of 16 creatinine is 1.57, LDH is 2618, CRP is 18.2. Pro-Calcitonin level came back elevated at 3.53, suggesting possibility of bacterial infection She received a liter bolus yesterday after intubation. We w ill give the patient additional fluid boluses today. Sputum culture has been sent and is pending, blood cultures have been sent. Patient has been placed in prone position at 8:00 last night, and her oxygenation seems to be improved and she satting 97% on 100% FiO2 and subsequently FiO2 was dropped down to 80%, and PEEP is down to 18. She remains in prone positioning, tolerating it well, she is having low-grade fevers, she is in sinus mechanism with tachycardic on the monitor, not requiring any vasopressor support right now, will start tube feedings today when the patient is placed back over in the supine position On 09/13/2020 patient seen in follow-up in intensive care unit, she remains proned, and at the time of our evaluation patient has already been prone for close to 16 hours and is about to be turned back on her spine. She tolerates prone position quite well, she remains intubated, paralyzed and sedated on mechanical ventilator, current vent settings are assist-control mode of ventilation with a rate of 36, tidal volume 375, FiO2 of 70% and PEEP of 18, this point his blood gases show pO2 of 82, pCO2 of 39, and pH of 7.19. She's currently on D5 W with 3 A of bicarbonate at 75 per hour, Diprivan is a 60 mics per kilo per minute, index is at 2 mics per kilo per minute, and insulin drip is at 6 units per hour, patient has not started tube feedings yet. She is in sinus mechanism, hemodynamically stable, not requiring any vasopressor support. Today's chest x-ray has been reviewed showing bilateral lung infiltrates that appear to be stable. Today's labs have been reviewed showing white blood cell count of 11.1, hemoglobin 13.2, d-dimer is pending, yesterday his d-dimer was 14.3, patient's Lovenox dose was increased to 50 mg every 24 hours. Her renal function continued to worsen, and her creatinine is up to 3.4 on today's labs, BUN is 24, were bicarb concentration is only 13 on today's labs, sodium is 137, potassium is 4.0. AST is up to 77, ALT and alk phos are within normal limits, yesterday set him inflammatory markers with showing up trending LDH at 2618, and CRP of 18.2. Her pro-calcitonin level was increased yesterday at 3.53 and we added empiric antibiotics in the form of Zosyn. Sputum culture has been sent and has shown no growth. Overnight patient remained oliguric, yesterday we gave her additional fluids, however did not improve her renal function and her kidney function continued to get worse. Nephrology consultation has been requested, she has only been producing urine in the order of 5-10 ML per hour, renal ultrasound has been obtained showing no evidence of hydronephrosis bilaterally. On 09/14/2020 patient seen in follow-up in intensive care unit, she remains intubated, sedated and paralyzed, currently on assist control mode of ventilation with a rate of 36, tidal vital 375, FiO2 of 60% and PEEP of 18. This morning's blood gas was reviewed showing pO2 of 60, pCO2 of 43, and pH of 7.32. This was done on FiO2 of 70%, her peak airway pressure is 40, plateau pressures 26. She is currently on D5 with 3 A of bicarbonate at 100 ML per hour, insulin drip is at 7 units per hour, fentanyl drip is a 0.5 mics per kilo per hour, Diprivan and is at 50 mics per kilo per minute, and index is at 2 mics per kilo per minute. She is tolerating tube feedings of vital high-protein at 27 with a goal 27 standard water flushes. Today's chest x-ray has not been completed yet, because the patient has been in prone position for last 16 hours. Patient tolerates prone in quite well, and her oxygenation improves when she is in prone position. However when she is turned over in the supine position to complete chest x-rays and ADL's, patient's O2 sat drops down to low 80s and her FiO2 requirement increases at that time. Today's labs have been reviewed, and there has been further worsening of her renal function, and patient has made almost no urine overnight. Her BUN is 33, and creatinine is 4.87, nephrology is following, her renal ultrasound showed no evidence of hydronephrosis. Her urinalysis showed possibility of urinary tract infection, and patient has been started on cefepime. Urine culture is pending at this time, blood and sputum cultures have been negative. No fevers overnight, she's not requiring any vasopressor support. On 09/15/2020 patient seen in follow-up in intensive care unit, she remains intubated, sedated and paralyzed on assist-control mode of ventilation with a rate of 36, tidal vital 375, FiO2 100% and PEEP of 18, this morning's blood gas reviewed showing pO2 of 58, pCO2 of 45, and pH is 7.35, this was done on FiO2 of 100%. Her peak airway pressures 44, plateau pressures 38, she is on 0.9 normal saline at 50 ML per hour, Diprivan is a 40 mics per kilo per minute, Nimbex drip is a 2 mics per kilo per minute, and fentanyl drip at 0.5 mics per kilo per hour, she is tolerating tube feedings with vital high-protein is 27 with a goal of 27 standard water flushes. She is in sinus mechanism with a rate of 73, she is hemodynamically stable and not requiring any vasopressors. Today's chest x- ray shows ARDS, bilateral airspace opacities, no significant pleural effusion and no pneumothorax. Today's labs have been reviewed, white blood cell count is 9.9, hemoglobin is 11.3, sodium is 134, respiratory electrolytes were within normal limits, and there has been further worsening of her renal function with BUN of 34, creatinine is 4.78, her urine output has remained very poor. Last night she had her first hemodialysis session and no fluid was removed, this morning she is having another hemodialysis treatments and the goal is to remove half a liter of fluid. Her sputum, blood and urine cultures remained negative thus far, patient's pro-calcitonin level came back significantly elevated at 23.5 suggesting evidence of bacterial infection. Patient remains on cefepime for antibiotic coverage, she also remains on Decadron milligrams twice daily, and Lovenox is 50 mg every 24 hours. On 09/18/2020 patient seen in follow-up in the intensive care unit. She remains intubated, sedated and paralyzed on mechanical ventilator on assist control mode with a rate of 36, tidal volume 375, FiO2 of 60% and PEEP of 20, this might blood gas shows pO2 of 72, pCO2 38, and pH is 7.35, today's chest x-ray still showing bilateral airspace disease possibly slightly improved compared yester day's chest x-ray. Patient is currently on multiple drips including 0.9 normal saline at 20 no per hour, Nimbex is at 3 mics per kilo per minute, Diprivan is at 50 mics per kilo per minute, fentanyl drip is at 1 phil per kilo per hour, insulin drip is at 4 units per hour, she is on tube feedings with vital high- protein at a rate of 10 with a goal of 36 and standard water flushes. Patient has been getting hemodialysis treatments, her last treatment was on 09/16/2020 with removal of 1.2 L of fluid. Today's labs have been reviewed, showing white blood cell count of 12.6, hemoglobin of 9.8, last d-dimer from yesterday was 6.83, and patient remains on Lovenox and 50 mg daily, sodium was 133, potassium is 3.2, chloride is 102, CO2 is 21, BUN of 35, creatinine is 4.12. Her last set of inflammatory markers was from yesterday showing improvement although LDH was still elevated at 1913, and CRP was 1.3. She remains on IV Decadron 6 mg twice daily, she is also on cefepime for empiric antibiotic coverage, and so far all her cultures including sputum blood and urine are negative. Patient has been tolerating prone positioning well, and she has been prone up to 16-20 hours on a daily basis. On 09/19/2020 patient seen in follow-up in intensive care unit, she remains sedated, paralyzed and trached to the ventilator currently on assist control mode of ventilation with a rate of 36, tidal volume is 375, FiO2 of 60% and PEEP of 20. This morning's blood gases show pO2 of 85, pCO2 37, and pH of 7.33, and this was done and FiO2 of 60%. She is status post tracheostomy and PEG tube placement yesterday on 09/18/2020, she is currently in supine position, and that she is having hemodialysis treatment. Yesterday 2-1/2 L of fluid was removed with hemodialysis, the goal to remove another 2 L of fluid with today's hemodialysis treatments, today's chest x-ray shows bilateral multifocal and c onfluent opacities consistent with COVID-19 infection, and some improved aeration at the periphery of the left lung but worsening opacities throughout the right lung compared to one day earlier. Patient is currently on 0.9 normal seen at 20 ML per hour, Nimbex is at 1.5 mics per kilo per minute, Diprivan is a 50 mics per kilo per minute, we will send is currently off, fentanyl drip is at 1 phil per kilo per hour, and insulin is at 5 units per hour, tube feedings are on hold and are expected to be restarted later on today. His labs have been reviewed showing white blood cell count of 14.3, hemoglobin of 9.6, d-dimer is relatively stable at 6.48, sodium is 130, potassium is 3.5, CO2 of 18, and renal profile shows some improvement with BUN of 34, and creatinine is 3.81. Her inflammatory markers are improving, LDH today is 1686, and CRP is 1.1. Her blood sputum and urine cultures have shown no growth to date. Patient continues on cefepime, current dose Lovenox is 15 mg once daily adjusted for her renal function, and she continues on Decadron 6 mg twice daily. Objective - Vital Signs Vital signs: Vital Signs Temp 98.1 F 09/19/20 08:00 Pulse 59 L 09/19/20 09:00 Resp 36 H 09/19/20 09:00 BP 123/69 09/18/20 13:40 Pulse Ox 96 09/19/20 09:00 Intake & Output 09/18/20 09/19/20 09/19/20 18:59 06:59 18:59 Intake Total 861.896 987.834 199.342 Output Total 2510 30 0 Balance -1648.104 957.834 199.342 Weight 120.6 kg 119.9 kg Intake: IV 56 276 69 0.9 20 240 60 Pressure Bag 36 36 9 Intake, IV Titration 675.896 711.834 85.342 Amount Cisatracurium 200 mg In 162.396 192.671 Sodium Chloride 0.9% 180 ml @ 1 MCG/KG/MIN 6.015 mls/hr IV .Q24H [facility] Rx#: [id number] Insulin Regular 100 unit 22.759 31.276 In Sodium Chloride 0.9% 100 ml @ Per Protocol IV .Q0M [facility] Rx#:[id number] fentaNYL (PF). 1,000 mcg 100 87.887 85.342 In Sodium Chloride 0.9% 80 ml @ Per Protocol IV . Q0M [facility] Rx#:[id number] propofoL 1,000 mg In 390.741 400 Empty Bag 1 bag @ Titrate IV .Q0M [facility] Rx#: [id number] Tube Feeding 40 Other 90 45 Output: Urine 30 0 Hemodialysis 2500 Estimated Blood Loss 10 Other: Voiding Method Indwelling Catheter Indwelling Catheter ABP, PAP, CO, CI - Last Documented Arterial Blood Pressure 125/67 - Exam GENERAL EXAM: Sedated, -[place]ese female, trached to the ventilator on assist control mode of ventilation with FiO2 60 percent and PEEP of 20, with a pulse ox of 95% comfortable in no apparent distress. HEAD: Normocephalic/atraumatic. EYES: Normal reaction of pupils, equal size. Conjunctiva pink, sclera white. NOSE: Clear with pink turbinates. THROAT: No erythema or exudates. NECK: No masses, no JVD, no thyroid enlargement, no adenopathy. CHEST: No chest wall deformity. Symmetrical expansion. LUNGS: Equal air entry with bilateral crackles CVS: Regular rate and rhythm, normal S1 and S2, no gallops, no murmurs, no rubs ABDOMEN: Soft, nontender. No hepatosplenomegaly, normal bowel sounds, no guarding or rigidity. EXTREMITIES: No clubbing, no edema, no cyanosis, 2+ pulses and upper and lower extremities. MUSCULOSKELETAL: Muscle strength and tone normal. SPINE: No scoliosis or deformity SKIN: No rashes CENTRAL NERVOUS SYSTEM: Sedated, trached to the mechanical ventilator No focal deficits, tone is normal in all 4 extremities. - Labs CBC & Chem 7: 09/19/20 05:15 09/19/20 05:15 Labs: Abnormal Lab Results - Last 24 Hours (Table) 09/18/20 09/18/20 09/18/20 Range/Units 11:26 14:10 18:15 WBC (3.8-10.6) k/uL RBC (3.80-5.40) m/uL Hgb (11.4-16.0) gm/dL Hct (34.0-46.0) % D-Dimer (<0.60) mg/L FEU ABG pH (7.35-7.45) ABG HCO3 (21-25) mmol/L Sodium (137-145) mmol/L Carbon Dioxide (22-30) mmol/L BUN (7-17) mg/dL Creatinine (0.52-1.04) mg/dL Glucose (74-99) mg/dL POC Glucose (mg/dL) 119 H 125 H 213 H (75-99) mg/dL Lactate Dehydrogenase (313-618) U/L C-Reactive Protein (<1.0) mg/dL 09/18/20 09/18/20 09/18/20 Range/Units 20:02 21:07 22:13 WBC (3.8-10.6) k/uL RBC (3.80-5.40) m/uL Hgb (11.4-16.0) gm/dL Hct (34.0-46.0) % D-Dimer (<0.60) mg/L FEU ABG pH (7.35-7.45) ABG HCO3 (21-25) mmol/L Sodium (137-145) mmol/L Carbon Dioxide (22-30) mmol/L BUN (7-17) mg/dL Creatinine (0.52-1.04) mg/dL Glucose (74-99) mg/dL POC Glucose (mg/dL) 160 H 135 H 140 H (75-99) mg/dL Lactate Dehydrogenase (313-618) U/L C-Reactive Protein (<1.0) mg/dL 09/19/20 09/19/20 09/19/20 Range/Units 00:23 02:29 04:15 WBC (3.8-10.6) k/uL RBC (3.80-5.40) m/uL Hgb (11.4-16.0) gm/dL Hct (34.0-46.0) % D-Dimer (<0.60) mg/L FEU ABG pH (7.35-7.45) ABG HCO3 (21-25) mmol/L Sodium (137-145) mmol/L Carbon Dioxide (22-30) mmol/L BUN (7-17) mg/dL Creatinine (0.52-1.04) mg/dL Glucose (74-99) mg/dL POC Glucose (mg/dL) 174 H 182 H 198 H (75-99) mg/dL Lactate Dehydrogenase (313-618) U/L C-Reactive Protein (<1.0) mg/dL 09/19/20 09/19/20 09/19/20 Range/Units 05:15 05:15 05:15 WBC 14.3 H (3.8-10.6) k/uL RBC 3.36 L (3.80-5.40) m/uL Hgb 9.6 L (11.4-16.0) gm/dL Hct 28.1 L (34.0-46.0) % D-Dimer 6.48 H (<0.60) mg/L FEU ABG pH (7.35-7.45) ABG HCO3 (21-25) mmol/L Sodium 130 L (137-145) mmol/L Carbon Dioxide 18 L (22-30) mmol/L BUN 34 H (7-17) mg/dL Creatinine 3.81 H (0.52-1.04) mg/dL Glucose 177 H (74-99) mg/dL POC Glucose (mg/dL) (75-99) mg/dL Lactate Dehydrogenase 1686 H (313-618) U/L C-Reactive Protein 1.1 H (<1.0) mg/dL 09/19/20 09/19/20 Range/Units 05:16 06:10 WBC (3.8-10.6) k/uL RBC (3.80-5.40) m/uL Hgb (11.4-16.0) gm/dL Hct (34.0-46.0) % D-Dimer (<0.60) mg/L FEU ABG pH 7.33 L (7.35-7.45) ABG HCO3 19 L (21-25) mmol/L Sodium (137-145) mmol/L Carbon Dioxide (22-30) mmol/L BUN (7-17) mg/dL Creatinine (0.52-1.04) mg/dL Glucose (74-99) mg/dL POC Glucose (mg/dL) 183 H (75-99) mg/dL Lactate Dehydrogenase (313-618) U/L C-Reactive Protein (<1.0) mg/dL Microbiology - Last 24 Hours (Table) 09/12/20 11:11 Blood Culture - Final Blood No Growth after 144 hours 09/12/20 11:11 Blood Culture - Final Blood No Growth after 144 hours Assessment and Plan Plan: Assessment: #1. Acute hypoxic respiratory failure secondary to COVID-19 pneumonia, transferred to the intensive care unit on 09/11/2020 and intubated and placed on mechanical ventilator on 09/11/2020. Patient received 1 dose of Remdesivir on 09/11/2020, however he says of quick progression of her hypoxic respiratory failure she received Tocilizumab 800 mg on 09/11/2020 On 09/13/2020 patient remains intubated, sedated and paralyzed, currently with FiO2 of 70% and PEEP of 18, patient is being proned for 16 hours per day, tolerates well, oxygenation has improved with prone position On 09/18/2020 patient is intubated, sedated and paralyzed, currently on FiO2 of 60% and PEEP of 20. On 09/19/2020 patient is status post tracheostomy and PEG tube placement on 09/18/2020, remains trached to the ventilator with FiO2 of 60% and PEEP of 20 #2. Acute kidney injury related to ATN, nephrology has been consulted, ultrasound of the kidneys showed no evidence of hydronephrosis. Patient was initiated on hemodialysis on 09/14/2020 #3. Acute diabetic ketoacidosis, resolved #4. Acute metabolic acidosis related to acute DKA, and acute kidney injury. Maintained on bicarbonate infusion #5. Increased d-dimer, related to COVID-19 pneumonia, currently on Lovenox 50 mg twice daily #6. Possible sepsis with increased pro-calcitonin suggesting presence of bacterial infection, cultures have been sent, patient has been started on Zosyn for empiric antibiotics coverage #7. Diabetes mellitus type 2 #8. Morbid obesity with BMI 45.3 kg/m #9. Nonsmoker Plan: Today's chest x-ray in labs and blood gases have been reviewed Continue with current vent settings, cut back FiO2 to 50% Proceed with paralytic holiday Hemodialysis again today with the goal of removal 1-2 L of fluid Renal profile is improving Anticipate restarting tube feedings later on today Cultures are negative thus far We'll discontinue cefepime Continue current dose Lovenox Continue Decadron Continue glucose control We'll continue to closely follow in the intensive care unit Prognosis is guarded I performed a history & physical examination of the patient and discussed their management with my nurse practitioner, Renetta Moreira. I reviewed the nurse practitioner's note and agree with the documented findings and plan of care. Lung sounds are positive for diminished breath sounds. The findings and the impression was discussed with the patient. I attest to the documentation by the nurse practitioner. Time with Patient: Greater than 30
[2020-09-19 10:25] LABS: Glucose,Whole Blood 100 mg/dL (75-99)
--- NOTE | 2020-09-19 11:18 | PN ---
PROGRESS NOTE The patient is seen for followup for acute kidney injury. She currently remains on the vent. Patient's oxygenation has improved. She is currently being dialyzed on a daily basis. She is currently supine and FiO2 is down to 50% now. Case is discussed with nursing staff. PHYSICAL EXAMINATION: Blood pressure is reviewed, 125/67, heart rate 59 per minute. Her edema seems to be improving. Patient is tolerating tube feeds. LABS: Labs are reviewed. Sodium 130, potassium 3.5, chloride 101, CO2 is 18, BUN 34, creatinine 3.8, hemoglobin 9.6 g/dL. ASSESSMENT: 1. Acute kidney injury, acute tubular necrosis, currently hemodialysis dependent. 2. COVID pneumonia. 3. Acute hypoxic respiratory failure secondary to COVID pneumonia, oxygenation is improving. Patient is maintained on steroids. 4. Metabolic acidosis, currently improving. We will adjust the bicarb bath on dialysis for tomorrow. 5. Hypervolemic hyponatremia. Expect improvement with ongoing dialysis. Will adjust the sodium bath on the machine as well. 6. Hypokalemia, status post replacement. PLAN: Dialysis tomorrow, goal UF 2 to 2.5 L. Replace potassium. Will increase bicarb on dialysis tomorrow. MMODL / IJN: [id number] /
[2020-09-19 11:33] LABS: Glucose,Whole Blood 109 mg/dL (75-99)
--- NOTE | 2020-09-19 12:58 | P.PN ---
Subjective Progress Note Date: 09/19/20 Principal diagnosis: Acute kidney injury, hemodialysis placement The patient was seen in the ICU is a follow-up to a temporary hemodialysis catheter placement on 09/14/2020. Remains sedated, paralyzed and treat to the ventilator. Patient underwent PEG tube and tracheostomy placement yesterday. She still remains oliguric and will need placement for a tunneled hemodialysis catheter. She has had dialysis on a daily basis. Objective - Vital Signs Vital signs: Vital Signs Temp 98.1 F 09/19/20 08:00 Pulse 63 09/19/20 11:00 Resp 36 H 09/19/20 11:00 BP 123/69 09/18/20 13:40 Pulse Ox 92 L 09/19/20 11:00 Intake & Output 09/18/20 09/19/20 09/19/20 18:59 06:59 18:59 Intake Total 861.896 987.834 445.644 Output Total 2510 30 0 Balance -1648.104 957.834 445.644 Weight 120.6 kg 119.9 kg Intake: IV 56 276 115 0.9 20 240 100 Pressure Bag 36 36 15 Intake, IV Titration 675.896 711.834 275.644 Amount Cisatracurium 200 mg In 162.396 192.671 59.244 Sodium Chloride 0.9% 180 ml @ 1 MCG/KG/MIN 6.015 mls/hr IV .Q24H [facility] Rx#: [id number] Insulin Regular 100 unit 22.759 31.276 31.058 In Sodium Chloride 0.9% 100 ml @ Per Protocol IV .Q0M [facility] Rx#:[id number] fentaNYL (PF). 1,000 mcg 100 87.887 85.342 In Sodium Chloride 0.9% 80 ml @ Per Protocol IV . Q0M [facility] Rx#:[id number] propofoL 1,000 mg In 390.741 400 100 Empty Bag 1 bag @ Titrate IV .Q0M [facility] Rx#: [id number] Tube Feeding 40 10 Other 90 45 Output: Urine 30 0 Hemodialysis 2500 Estimated Blood Loss 10 Other: Voiding Method Indwelling Catheter Indwelling Catheter Indwelling Catheter ABP, PAP, CO, CI - Last Documented Arterial Blood Pressure 119/53 - Exam General appearance: The patient is sedated on mechanical ventilation. HET: Head is normocephalic and atraumatic. Neck: Supple without lymphadenopathy. Trachea midline. Hemodialysis catheter clean, dry, and intact. Neurological: Patient is sedated on mechanical ventilation. - Labs CBC & Chem 7: 09/19/20 05:15 09/19/20 05:15 Labs: Abnormal Lab Results - Last 24 Hours (Table) 09/18/20 09/18/20 09/18/20 Range/Units 14:10 18:15 20:02 WBC (3.8-10.6) k/uL RBC (3.80-5.40) m/uL Hgb (11.4-16.0) gm/dL Hct (34.0-46.0) % D-Dimer (<0.60) mg/L FEU ABG pH (7.35-7.45) ABG HCO3 (21-25) mmol/L Sodium (137-145) mmol/L Carbon Dioxide (22-30) mmol/L BUN (7-17) mg/dL Creatinine (0.52-1.04) mg/dL Glucose (74-99) mg/dL POC Glucose (mg/dL) 125 H 213 H 160 H (75-99) mg/dL Lactate Dehydrogenase (313-618) U/L C-Reactive Protein (<1.0) mg/dL 09/18/20 09/18/20 09/19/20 Range/Units 21:07 22:13 00:23 WBC (3.8-10.6) k/uL RBC (3.80-5.40) m/uL Hgb (11.4-16.0) gm/dL Hct (34.0-46.0) % D-Dimer (<0.60) mg/L FEU ABG pH (7.35-7.45) ABG HCO3 (21-25) mmol/L Sodium (137-145) mmol/L Carbon Dioxide (22-30) mmol/L BUN (7-17) mg/dL Creatinine (0.52-1.04) mg/dL Glucose (74-99) mg/dL POC Glucose (mg/dL) 135 H 140 H 174 H (75-99) mg/dL Lactate Dehydrogenase (313-618) U/L C-Reactive Protein (<1.0) mg/dL 09/19/20 09/19/20 09/19/20 Range/Units 02:29 04:15 05:15 WBC 14.3 H (3.8-10.6) k/uL RBC 3.36 L (3.80-5.40) m/uL Hgb 9.6 L (11.4-16.0) gm/dL Hct 28.1 L (34.0-46.0) % D-Dimer (<0.60) mg/L FEU ABG pH (7.35-7.45) ABG HCO3 (21-25) mmol/L Sodium (137-145) mmol/L Carbon Dioxide (22-30) mmol/L BUN (7-17) mg/dL Creatinine (0.52-1.04) mg/dL Glucose (74-99) mg/dL POC Glucose (mg/dL) 182 H 198 H (75-99) mg/dL Lactate Dehydrogenase (313-618) U/L C-Reactive Protein (<1.0) mg/dL 09/19/20 09/19/20 09/19/20 Range/Units 05:15 05:15 05:16 WBC (3.8-10.6) k/uL RBC (3.80-5.40) m/uL Hgb (11.4-16.0) gm/dL Hct (34.0-46.0) % D-Dimer 6.48 H (<0.60) mg/L FEU ABG pH 7.33 L (7.35-7.45) ABG HCO3 19 L (21-25) mmol/L Sodium 130 L (137-145) mmol/L Carbon Dioxide 18 L (22-30) mmol/L BUN 34 H (7-17) mg/dL Creatinine 3.81 H (0.52-1.04) mg/dL Glucose 177 H (74-99) mg/dL POC Glucose (mg/dL) (75-99) mg/dL Lactate Dehydrogenase 1686 H (313-618) U/L C-Reactive Protein 1.1 H (<1.0) mg/dL 09/19/20 09/19/20 09/19/20 Range/Units 06:10 10:23 11:32 WBC (3.8-10.6) k/uL RBC (3.80-5.40) m/uL Hgb (11.4-16.0) gm/dL Hct (34.0-46.0) % D-Dimer (<0.60) mg/L FEU ABG pH (7.35-7.45) ABG HCO3 (21-25) mmol/L Sodium (137-145) mmol/L Carbon Dioxide (22-30) mmol/L BUN (7-17) mg/dL Creatinine (0.52-1.04) mg/dL Glucose (74-99) mg/dL POC Glucose (mg/dL) 183 H 100 H 109 H (75-99) mg/dL Lactate Dehydrogenase (313-618) U/L C-Reactive Protein (<1.0) mg/dL Microbiology - Last 24 Hours (Table) 09/12/20 11:11 Blood Culture - Final Blood No Growth after 144 hours 09/12/20 11:11 Blood Culture - Final Blood No Growth after 144 hours Assessment and Plan Assessment: 1. Acute kidney injury status post non-tunneled right internal jugular vein hemodialysis catheter 2. COVID-19 pneumonitis 3. Acute respiratory hypoxia on mechanical ventilation 4. Diabetes mellitus Plan: Patient will be scheduled for this upcoming with Dr. Medina for a tunneled dialysis catheter placement Nothing by mouth after midnight Friday Hold any anticoagulation 24 hours prior to procedure Continue ICU medical management The impression and plan of care has been dictated as directed. I performed a history and examination of this patient, discussed the same with the dictator. I agree with the dictator's note ,documented as a scribe. Any additional findings or plans will be noted.
--- NOTE | 2020-09-19 13:47 | P.PN ---
Subjective Progress Note Date: 09/19/20 CHIEF COMPLAINT: COVID-19 pneumonia HISTORY OF PRESENT ILLNESS: Patient is in the ICU for COVID-19 pneumonia and respiratory failure. She is status post tracheostomy and PEG tube placement with Dr. hollis. Tube feedings will be started today. Afebrile WBC 14.3. Patient scheduled for permacath placement tomorrow. Lovenox will be on hold. Patient seen and examined with Dr. hollis PHYSICAL EXAM: VITAL SIGNS: Reviewed. GENERAL: Well-developed in no acute distress. HEENT: No sclera icterus. Extraocular movements grossly intact. Moist buccal mucosa. Head is atraumatic, normocephalic. Tracheostomy site with bleeding around trach ABDOMEN: Soft. Nondistended. Nontender. PEG tube site clean dry and intact NEUROLOGIC: Intubated ASSESSMENT: 1. Acute hypoxic respiratory failure with prolonged mechanical ventilation due to COVID-19 pneumonia status post tracheostomy placement 2. Severe protein calorie malnutrition status post PEG tube placement PLAN: -Consult dietitian to start PEG tube feedings -Continue supportive care -Continue ICU management Physician Stock Plan Administrator note has been reviewed by physician. Signing provider agrees with the documented findings, assessment, and plan of care. Objective - Vital Signs Vital signs: Vital Signs Temp 97.4 F L 09/19/20 12:26 Pulse 66 09/19/20 13:00 Resp 36 H 09/19/20 13:00 BP 120/58 09/19/20 12:26 Pulse Ox 95 09/19/20 13:00 Intake & Output 09/18/20 09/19/20 09/19/20 18:59 06:59 18:59 Intake Total 861.896 987.834 501.644 Output Total 2510 30 2500 Balance -1648.104 957.834 -1998.356 Weight 120.6 kg 119.9 kg Intake: IV 56 276 161 0.9 20 240 140 Pressure Bag 36 36 21 Intake, IV Titration 675.896 711.834 275.644 Amount Cisatracurium 200 mg In 162.396 192.671 59.244 Sodium Chloride 0.9% 180 ml @ 1 MCG/KG/MIN 6.015 mls/hr IV .Q24H [facility] Rx#: [id number] Insulin Regular 100 unit 22.759 31.276 31.058 In Sodium Chloride 0.9% 100 ml @ Per Protocol IV .Q0M [facility] Rx#:[id number] fentaNYL (PF). 1,000 mcg 100 87.887 85.342 In Sodium Chloride 0.9% 80 ml @ Per Protocol IV . Q0M [facility] Rx#:[id number] propofoL 1,000 mg In 390.741 400 100 Empty Bag 1 bag @ Titrate IV .Q0M [facility] Rx#: [id number] Tube Feeding 40 20 Other 90 45 Output: Urine 30 0 Hemodialysis 2500 2500 Estimated Blood Loss 10 Other: Voiding Method Indwelling Catheter Indwelling Catheter Indwelling Catheter ABP, PAP, CO, CI - Last Documented Arterial Blood Pressure 119/50 - Labs CBC & Chem 7: 09/19/20 05:15 09/19/20 05:15 Labs: Abnormal Lab Results - Last 24 Hours (Table) 09/18/20 09/18/20 09/18/20 Range/Units 14:10 18:15 20:02 WBC (3.8-10.6) k/uL RBC (3.80-5.40) m/uL Hgb (11.4-16.0) gm/dL Hct (34.0-46.0) % D-Dimer (<0.60) mg/L FEU ABG pH (7.35-7.45) ABG HCO3 (21-25) mmol/L Sodium (137-145) mmol/L Carbon Dioxide (22-30) mmol/L BUN (7-17) mg/dL Creatinine (0.52-1.04) mg/dL Glucose (74-99) mg/dL POC Glucose (mg/dL) 125 H 213 H 160 H (75-99) mg/dL Lactate Dehydrogenase (313-618) U/L C-Reactive Protein (<1.0) mg/dL 09/18/20 09/18/20 09/19/20 Range/Units 21:07 22:13 00:23 WBC (3.8-10.6) k/uL RBC (3.80-5.40) m/uL Hgb (11.4-16.0) gm/dL Hct (34.0-46.0) % D-Dimer (<0.60) mg/L FEU ABG pH (7.35-7.45) ABG HCO3 (21-25) mmol/L Sodium (137-145) mmol/L Carbon Dioxide (22-30) mmol/L BUN (7-17) mg/dL Creatinine (0.52-1.04) mg/dL Glucose (74-99) mg/dL POC Glucose (mg/dL) 135 H 140 H 174 H (75-99) mg/dL Lactate Dehydrogenase (313-618) U/L C-Reactive Protein (<1.0) mg/dL 09/19/20 09/19/20 09/19/20 Range/Units 02:29 04:15 05:15 WBC 14.3 H (3.8-10.6) k/uL RBC 3.36 L (3.80-5.40) m/uL Hgb 9.6 L (11.4-16.0) gm/dL Hct 28.1 L (34.0-46.0) % D-Dimer (<0.60) mg/L FEU ABG pH (7.35-7.45) ABG HCO3 (21-25) mmol/L Sodium (137-145) mmol/L Carbon Dioxide (22-30) mmol/L BUN (7-17) mg/dL Creatinine (0.52-1.04) mg/dL Glucose (74-99) mg/dL POC Glucose (mg/dL) 182 H 198 H (75-99) mg/dL Lactate Dehydrogenase (313-618) U/L C-Reactive Protein (<1.0) mg/dL 09/19/20 09/19/20 09/19/20 Range/Units 05:15 05:15 05:16 WBC (3.8-10.6) k/uL RBC (3.80-5.40) m/uL Hgb (11.4-16.0) gm/dL Hct (34.0-46.0) % D-Dimer 6.48 H (<0.60) mg/L FEU ABG pH 7.33 L (7.35-7.45) ABG HCO3 19 L (21-25) mmol/L Sodium 130 L (137-145) mmol/L Carbon Dioxide 18 L (22-30) mmol/L BUN 34 H (7-17) mg/dL Creatinine 3.81 H (0.52-1.04) mg/dL Glucose 177 H (74-99) mg/dL POC Glucose (mg/dL) (75-99) mg/dL Lactate Dehydrogenase 1686 H (313-618) U/L C-Reactive Protein 1.1 H (<1.0) mg/dL 09/19/20 09/19/20 09/19/20 Range/Units 06:10 10:23 11:32 WBC (3.8-10.6) k/uL RBC (3.80-5.40) m/uL Hgb (11.4-16.0) gm/dL Hct (34.0-46.0) % D-Dimer (<0.60) mg/L FEU ABG pH (7.35-7.45) ABG HCO3 (21-25) mmol/L Sodium (137-145) mmol/L Carbon Dioxide (22-30) mmol/L BUN (7-17) mg/dL Creatinine (0.52-1.04) mg/dL Glucose (74-99) mg/dL POC Glucose (mg/dL) 183 H 100 H 109 H (75-99) mg/dL Lactate Dehydrogenase (313-618) U/L C-Reactive Protein (<1.0) mg/dL Microbiology - Last 24 Hours (Table) 09/12/20 11:11 Blood Culture - Final Blood No Growth after 144 hours 09/12/20 11:11 Blood Culture - Final Blood No Growth after 144 hours
--- NOTE | 2020-09-19 14:06 | P.PN ---
Subjective Progress Note Date: 09/19/20 HISTORY OF PRESENT ILLNESS 35-year-old female patient of Dr. Arroyo with past medical history of type 2 diabetes comes in with acute shortness of breath associated with high light s ugars. Patient on admission was found to have a fever of 101.5 pulse rate 125 respiratory rate 20. Blood pressure 132/106. On chest x-ray obtained in the ER suggestive of bilateral infiltrates concerning for call with pneumonia. COVID PCR was positive. On admissions patient had an ABG with a pH of 7.14 pCO2 of 20, pO2 of 59, bicarb of 7. Patient's blood sugar on admission was 424 on assessment today patient's blood work patient had a sodium 135 potassium 5.4 chloride 123 bicarb less than 5 and creatinine 0.73. D-dimer was elevated on admission patient 9 28 patient given 1 L of IV fluids followed by normal saline running at 200 mL/h. Patient was positive for acetone on admission. She will anion gap closed and was switched to D5NS. Insulin drip was continued during the night and was switched to patient's home medication this morning. One dose of remdesiver was ordered. Apparently around noon, A- team was called on the patient secondary to hypoxia patient's oxygen saturation dropped to the 70s and 80s on 100% nonrebreather. Patient was switched to BiPAP on 18/12 and is doing better o FiO2 of 80%. ABG was obtained and ph was 7. 14 pCO2 of 28 bicarb of 7 pO2 of 17. Patient noted to have uncompensated metabolic acidosis with compensated respiratory alkalosis. Stat dose of 1 amp bicarb was given and followed by sodium bicarbonate drip. Insulin drip restarted. Patient's initiated on dexamethasone 6 mg IV twice a day. Potassium phosphate ordered as phosphorus is low. Patient's repeat blood gases suggest a pH of 7.25, CO2 32 pO2 of 72 bicarb 14. I will not normal saline at 100 mL/h as patient's anion gap has increased. Patient given 1 dose of 2 mg of morphine with improvement in respiratory rate. One dose of Ativan 0.5 mg was given. Xanax 0.25 twice a day along with Ativan 0.5 IV every 6 hours ordered for the patient. Vitals were evaluated patient pulse 129 [id number]. She was moved to the ICU. Precedex drip was initiated. Lopressor was initiated at 25 twice a day. Metoprolol tartrate 5 mg IV every 6 hours. Systolic blood pressure more than 160. Started chest x-ray was obtained and suggest stable bilateral consolidation suggestive of COVID-19 pneumonia. 09/12 patient is seen in the ICU is currently mechanically ventilated and sedated on vent settings of respiratory rate 36, tidal volume 375 FiO2 80% PEEP of 18.. Vital signs reviewed patient had a temp of 100.4 pulse 150 respiratory rate 36 oxygen saturation 95% on 80% on fio2 .'s labs are reviewed which patient had a d-dimer 1.84 that is increased to 14.3. Arterial Blood gas suggest ph 7.35, CO2 40, po2 62, . Her BMP suggest a sodium 135 potassium 3.7 chloride 112 bicarb 21 creatinine 1.57 for calcitonin is 3.5 CRP is increased from 8.78.2 LDH is increased to 2614. Patient remains on Pneumovax, propofol drip. Lovenox increased to 50 subcu twice a day. Patient received 2 L of IV fluids. Continue IV fluids at 100 mL/h. Bicarb drip discontinued patient initiated on Zosyn 3.375 every 8 hours. Continue insulin drip at 4 units per hour. Patient is currently in prone positioning 09/13: Patient evaluated in the ICU remains on Ventilation continues to be sedated, in prone position. Vent settings are respiratory rate 36, tidal vital 375, FiO2 70% PEEP of 18. ABG shows pO2 of 82, PCO2 of 39, pH is 7.19. Latest labs show WBC 11.1, hemoglobin 13.2, d-dimer still pending, but yesterday was up to 14.3. Creatinine up to 3.4, BUN 24 sodium 137, potassium 4.0. Patient's urine output has been low, nephrology on consult. Bicarb drip increased to 100 miles an hour, receiving another liter of normal saline, she did have a ultrasound that showed unremarkable bilateral kidneys. Repeat chest x-ray showed bilateral lung infiltrates that are stable. Anion gap has closed, will start Lantus 10 units at at bedtime Novolog every 6 hours. 09/14: Patient is seen in the ICU, still currently mechanically ventilated and sedated. She continues in the prone position. Her oxygen quickly drops if she is not in prone. Patient's kidney function has worsened. Laboratory values show creatinine of 4.87, BUN 33, LDH 2191, C-reactive protein 2.7. ABG shows pH 7.32, pO2 of 60, pCO2 43. Patient is making almost no urine overnight. Nephrology is following patient continues on cefepime for urinary tract infection, culture is still pending. Vascular has been consulted for placement of temporary hemodialysis catheter for plans for dialysis. 09/15: Patient evaluated in the ICU, continues to be mechanically ventilated and sedated on assist control ventilation rate of 36, tidal volume 375, FiO2 100% and PEEP of 18. ABG today shows pO2 58, pCO2 of 45, and pH 7.35. She continues on tube feedings. Yesterday patient underwent ultrasound-guided right internal jugular non-tunneled hemodialysis catheter placement. Patient underwent hemodialysis treatment last night and plans have another hemodialysis treatment today. She continues to make almost no urine. She continues on cefepime for antibiotic coverage, and continues on Decadron and Lovenox. 09/16: Patient seen on follow-up remains in the ICU mechanically ventilated and sedated. She continues on assist control rate of 36, tidal volume 375, FiO2 100% and PEEP of 20. PEEP had to be increased due to patient had to be in supine position for dialysis, will go back to prone position once dialysis is complete. ABG shows pH 7.32, pCO2 49, PaO2 61. Laboratory values showed WBC 11.2, hemoglobin 11, sodium 134, creatinine 4.44, BUN 38. Urine culture shows no growth, blood cultures show no growth to date. Repeat chest x-ray shows bilateral pleural effusions, correlate for ARDS, pulmonary edema, diffuse pneumonia, findings are stable from last exam. Patient does not require any pressors, blood pressure 133/57, heart rate 78. 5/16: Patient was evaluated in the ICU today for follow-up. She continues to be intubated and on mechanical ventilation. Current vent settings are tidal volume 375, FiO2 100% and PEEP of 20. ABG shows pH 7.37, pCO2 40, pO2 102. She continues with intermittent prone positioning. Patient continues to have almost no urine output, maintained on dialysis. Patient received dialysis yesterday without complication. Laboratory values revealed WBC 10.3, hemoglobin 10.4, sodium 132, potassium 3.1, BUN 33, creatinine 4.29, LDH 1913, C-reactive protein 1.3. Urine and sputum cultures are negative, blood cultures show no growth to date. Consult placed to dietary to start TPN[ ] 09/18: She remains in the intensive care unit intubated and on mechanical ventilation with tidal volume 375, FiO2 60 and PEEP of 20. Patient is being prone to daily at approximately 16 hours per day. Pulmonary medicine has added in Dr. Zhang to do PEG tube and trach today. Patient is not on vasopressors. Repeat blood work reveals WBC 12.6, hemoglobin 9.8, platelet count 212. Sodium 133, potassium 3.2, chloride 102, CO2 21, BUN 35 and creatinine 4.12. Blood sugar 126. Patient underwent hemodialysis yesterday with removal of 2 L and is scheduled again today with goal of 2-3 L and is scheduled again tomorrow. 09/19: She is scheduled for hemodialysis today and is off fentanyl temporarily. Patient is status post trach and PEG tube yesterday. And she remains on mechanical ventilation. Pulse ox 93-95%. She has been afebrile, heart rate 64, respiratory rate 36, blood pressure 115/50. Fentanyl is off to improve blood pressure for hemodialysis which is scheduled for today. Contacted vascular surgery about permanent hemodialysis catheter. Repeat blood work reveals WBC 14.3, hemoglobin 9.6, platelet count 200. D-dimer 6.48. LDH 1686. C-reactive protein 1.1. BUN 34 creatinine 3.81. Sodium 130, potassium 3.5, chloride 101, CO2 18. Blood sugars running between 101 198. Plan is to wean off Pneumovax today. Patient remains on insulin drip. Repeat chest x-ray reveals bilateral multifocal confluent opacities consistent with COVID-19. Some improved aeratio n periphery of the left lung and worsening opacities throughout the right lung. REVIEW OF SYSTEMS Unable to obtain due to intubation. PHYSICAL EXAMINATION Gen: This is is a 35-year-old black female, patient is intubated and on mechanical ventilation, patient is currently in prone position. She appears to be comfortable. Full physical exam was deferred to card seller due to Covid 19 and intubation. ASSESSMENT AND PLAN 1. Acute hypoxic respiratory failure secondary to Covid 19 pneumonia and possible bacterial pneumonia. Patient was intubated on September 11. She is status post 1 dose of Remdesivir and 1 dose of Tocilizumab. Continue pronating, Ventolin inhaler 4 times daily, Symbicort twice daily, cefepime 1 g IV piggyback every 24 hours, Demadex 6 kg IV twice daily, Lovenox 50 mg subcu daily, supplements. Status post PEG tube and trach. 2. Acute diabetic ketoacidosis secondary to Covid 19 pneumonia. Patient was status post 3 L of IV fluid. Anion gap closed. Continue.Patient is currently on insulin drip. 3. Metabolic encephalopathy secondary to Covid 19 and DKA. 4. Sepsis secondary to Covid 19 pneumonia. Continue as in #1. 5. Acute metabolic acidosis secondary to acute DKA, Covid 19 and acute kidney injury. 6. Diabetes mellitus type 2 uncontrolled with A1c 13.6. 7. Hypophosphatemia status post replacement. 8. Hyperkalemia secondary to DKA, resolved. 9. Sinus tachycardia secondary to sepsis, volume deficiency.Continue Lopressor 25 mg twice daily. 10. Acute kidney injury secondary to ATN secondary to Covid 19 and DKA. Patient continued on hemodialysis. 11. Hypertension. 12. Morbid obesity with BMI of 53. 13. DVT prophylaxis. Lovenox. 14. GI prophylaxis. Protonix 40 mg IV push daily. CODE STATUS: Full code Prognosis guarded. Impression and plan of care have been directed as dictated by the signing physician. Kimberly Boswell nurse practitioner acting as scribe for signing physician. Objective - Vital Signs Vital signs: Vital Signs Temp 98.1 F 09/19/20 08:00 Pulse 59 L 09/19/20 09:00 Resp 36 H 09/19/20 09:00 BP 123/69 09/18/20 13:40 Pulse Ox 96 09/19/20 09:00 Intake & Output 09/18/20 09/19/20 09/19/20 18:59 06:59 18:59 Intake Total 861.896 987.834 199.342 Output Total 2510 30 0 Balance -1648.104 957.834 199.342 Weight 120.6 kg 119.9 kg Intake: IV 56 276 69 0.9 20 240 60 Pressure Bag 36 36 9 Intake, IV Titration 675.896 711.834 85.342 Amount Cisatracurium 200 mg In 162.396 192.671 Sodium Chloride 0.9% 180 ml @ 1 MCG/KG/MIN 6.015 mls/hr IV .Q24H [facility] Rx#: [id number] Insulin Regular 100 unit 22.759 31.276 In Sodium Chloride 0.9% 100 ml @ Per Protocol IV .Q0M [facility] Rx#:[id number] fentaNYL (PF). 1,000 mcg 100 87.887 85.342 In Sodium Chloride 0.9% 80 ml @ Per Protocol IV . Q0M [facility] Rx#:[id number] propofoL 1,000 mg In 390.741 400 Empty Bag 1 bag @ Titrate IV .Q0M [facility] Rx#: [id number] Tube Feeding 40 Other 90 45 Output: Urine 30 0 Hemodialysis 2500 Estimated Blood Loss 10 Other: Voiding Method Indwelling Catheter Indwelling Catheter ABP, PAP, CO, CI - Last Documented Arterial Blood Pressure 125/67 - Labs CBC & Chem 7: 09/19/20 05:15 09/19/20 05:15 Labs: Abnormal Lab Results - Last 24 Hours (Table) 09/18/20 09/18/20 09/18/20 Range/Units 11:26 14:10 18:15 WBC (3.8-10.6) k/uL RBC (3.80-5.40) m/uL Hgb (11.4-16.0) gm/dL Hct (34.0-46.0) % D-Dimer (<0.60) mg/L FEU ABG pH (7.35-7.45) ABG HCO3 (21-25) mmol/L Sodium (137-145) mmol/L Carbon Dioxide (22-30) mmol/L BUN (7-17) mg/dL Creatinine (0.52-1.04) mg/dL Glucose (74-99) mg/dL POC Glucose (mg/dL) 119 H 125 H 213 H (75-99) mg/dL Lactate Dehydrogenase (313-618) U/L C-Reactive Protein (<1.0) mg/dL 09/18/20 09/18/20 09/18/20 Range/Units 20:02 21:07 22:13 WBC (3.8-10.6) k/uL RBC (3.80-5.40) m/uL Hgb (11.4-16.0) gm/dL Hct (34.0-46.0) % D-Dimer (<0.60) mg/L FEU ABG pH (7.35-7.45) ABG HCO3 (21-25) mmol/L Sodium (137-145) mmol/L Carbon Dioxide (22-30) mmol/L BUN (7-17) mg/dL Creatinine (0.52-1.04) mg/dL Glucose (74-99) mg/dL POC Glucose (mg/dL) 160 H 135 H 140 H (75-99) mg/dL Lactate Dehydrogenase (313-618) U/L C-Reactive Protein (<1.0) mg/dL 09/19/20 09/19/20 09/19/20 Range/Units 00:23 02:29 04:15 WBC (3.8-10.6) k/uL RBC (3.80-5.40) m/uL Hgb (11.4-16.0) gm/dL Hct (34.0-46.0) % D-Dimer (<0.60) mg/L FEU ABG pH (7.35-7.45) ABG HCO3 (21-25) mmol/L Sodium (137-145) mmol/L Carbon Dioxide (22-30) mmol/L BUN (7-17) mg/dL Creatinine (0.52-1.04) mg/dL Glucose (74-99) mg/dL POC Glucose (mg/dL) 174 H 182 H 198 H (75-99) mg/dL Lactate Dehydrogenase (313-618) U/L C-Reactive Protein (<1.0) mg/dL 09/19/20 09/19/20 09/19/20 Range/Units 05:15 05:15 05:15 WBC 14.3 H (3.8-10.6) k/uL RBC 3.36 L (3.80-5.40) m/uL Hgb 9.6 L (11.4-16.0) gm/dL Hct 28.1 L (34.0-46.0) % D-Dimer 6.48 H (<0.60) mg/L FEU ABG pH (7.35-7.45) ABG HCO3 (21-25) mmol/L Sodium 130 L (137-145) mmol/L Carbon Dioxide 18 L (22-30) mmol/L BUN 34 H (7-17) mg/dL Creatinine 3.81 H (0.52-1.04) mg/dL Glucose 177 H (74-99) mg/dL POC Glucose (mg/dL) (75-99) mg/dL Lactate Dehydrogenase 1686 H (313-618) U/L C-Reactive Protein 1.1 H (<1.0) mg/dL 09/19/20 09/19/20 Range/Units 05:16 06:10 WBC (3.8-10.6) k/uL RBC (3.80-5.40) m/uL Hgb (11.4-16.0) gm/dL Hct (34.0-46.0) % D-Dimer (<0.60) mg/L FEU ABG pH 7.33 L (7.35-7.45) ABG HCO3 19 L (21-25) mmol/L Sodium (137-145) mmol/L Carbon Dioxide (22-30) mmol/L BUN (7-17) mg/dL Creatinine (0.52-1.04) mg/dL Glucose (74-99) mg/dL POC Glucose (mg/dL) 183 H (75-99) mg/dL Lactate Dehydrogenase (313-618) U/L C-Reactive Protein (<1.0) mg/dL Microbiology - Last 24 Hours (Table) 09/12/20 11:11 Blood Culture - Final Blood No Growth after 144 hours 09/12/20 11:11 Blood Culture - Final Blood No Growth after 144 hours
[2020-09-19 14:17] LABS: Glucose,Whole Blood 177 mg/dL (75-99)
[2020-09-19] MEDS: SODIUM CHLORIDE 0.9% 500 ML 500 ML IV SCH (14:19)
[2020-09-19 17:37] LABS: Glucose,Whole Blood 129 mg/dL (75-99)
[2020-09-19] MEDS: NOREPINEPHRINE 8 MG in SODIUM CHLORIDE 0.9% 250 ML IV SCH (18:57)
[2020-09-19 20:36] LABS: Glucose,Whole Blood 216 mg/dL (75-99)
[2020-09-19] MEDS: INSULIN REGULAR 100 UNIT in SODIUM CHLORIDE 0.9% 100 ML IV SCH (20:36)
[2020-09-19 21:59] LABS: Glucose,Whole Blood 225 mg/dL (75-99)
[2020-09-19 23:23] LABS: Glucose,Whole Blood 215 mg/dL (75-99)
[2020-09-20] MEDS: fentaNYL (PF). 1,000 MCG in SODIUM CHLORIDE 0.9% 80 ML IV SCH ×3 (01:40→19:32)
[2020-09-20 03:32] LABS: Glucose,Whole Blood 134 mg/dL (75-99)
[2020-09-20 05:06] LABS: Glucose,Whole Blood 148 mg/dL (75-99)
[2020-09-20 05:09] LABS: ABG Base Excess -4.2 mmol/L; ABG HCO3 21 mmol/L (21-25); ABG Oxygen Saturation 94.3 % (94-97); ABG PCO2 37 mmHg (35-45); ABG PH 7.37 (7.35-7.45); ABG PO2 74 mmHg (83-108); ABG TCO2 22 mmol/L (19-24); Allen Test Performed? Yes
[2020-09-20 05:39] LABS: HCT 27.3 % (34.0-46.0); HGB 9.1 gm/dL (11.4-16.0); MCH 27.8 pg (25.0-35.0); MCHC 33.1 g/dL (31.0-37.0); MCV 83.9 fL (80.0-100.0); Mean Platelet Volume 10.1; Platelet Count 216 k/uL (150-450); Poikilocytosis Slight; RBC 3.26 m/uL (3.80-5.40); RDW 14.9 % (11.5-15.5); WBC 14.5 k/uL (3.8-10.6)
[2020-09-20 05:53] LABS: C Reactive Protein 1.7 mg/dL (<1.0); Calcium 8.6 mg/dL (8.4-10.2); Potassium 3.1 mmol/L (3.5-5.1)
[2020-09-20 06:23] LABS: Glucose,Whole Blood 120 mg/dL (75-99)
[2020-09-20] MEDS: SYMBICORT 160-4.5 MCG INHALER INHALATION SCH ×2 (07:29→22:35)
[2020-09-20] MEDS: ALBUTEROL HFA INHALER INHALATION SCH ×4 (07:29→22:34)
[2020-09-20] MEDS: SODIUM BICARBONATE TAB 650 MG TAB PO SCH ×3 (08:00→22:09)
[2020-09-20] MEDS: CHLORHEXIDINE GLUCONATE 15 ML CUP MUCOUS MEM SCH ×2 (08:00→20:43)
[2020-09-20] MEDS: PANTOPRAZOLE 40 MG/10 ML VIAL IVP SCH (08:00)
[2020-09-20] MEDS: DEXAMETHASONE SOD PHOSPHATE 10 MG/ML 1 ML VIAL IV SCH ×2 (08:00→20:42)
[2020-09-20] MEDS: ZINC SULFATE 220 MG CAP PO SCH (08:00)
[2020-09-20] MEDS: ASCORBIC ACID 500 MG TAB PO SCH ×2 (08:00→20:43)
[2020-09-20] MEDS: METOPROLOL TARTRATE 25 MG TAB PO SCH ×2 (08:00→20:44)
[2020-09-20] MEDS: CHOLECALCIFEROL 25 MCG (1000 IU) TABLET PO SCH (08:00)
[2020-09-20] MEDS: ENOXAPARIN 60 MG/0.6 ML SYRINGE SQ SCH (08:00)
--- NOTE | 2020-09-20 08:17 | XR ---
EXAMINATION TYPE: XR chest 1V portable DATE OF EXAM: 09/20/2020 Comparison: 09/19/2020 Clinical History: 35-year-old female tube placement Findings: Tracheostomy cannula. Right IJ CVC catheter at the caval atrial junction. Heart upper limits of nadia l in size. Diffuse interstitial and airspace opacities. Blunted right costophrenic angle could reflec t underlying small pleural effusion. Impression: Stable diffuse bilateral interstitial and airspace disease. Possible small right effusion.
[2020-09-20] MEDS ORDERED: IV FLUID CONTINUATION 1,000 ML IV ONE (08:30)
[2020-09-20] MEDS ORDERED: LIDOCAINE 1% INJ 10MG/ML (20 ML MDV) SQ ONE (09:18)
[2020-09-20] MEDS ORDERED: HEPARIN SODIUM 1,000 UN/ML (10ML VL) IV ONE (09:30)
--- NOTE | 2020-09-20 09:47 | P.PN ---
Subjective Progress Note Date: 09/20/20 Principal diagnosis: Acute hypoxemic respiratory failure secondary COVID-19 pneumonia, DKA This is a 55-year-old -Citizen Of [place] female with history of type 2 diabetes, admitted today through the emergency room with a few days' history of increased shortness of breath, cough, fever, chest x-ray in the ER showed bilateral infiltrates consistent with COVID-19 pneumonia in the patient had positive PCR for COVID-19 infection. Patient had significantly abnormal labs on admission, she had an extremely low bicarb, extremely low pH, and marginal oxygenation at best. Patient was admitted to the regular medical floor, and I happened to be rounding on that same floor were and I was notified about this patient having worsening respiratory distress. Evaluated the patient, clearly the patient has DKA and she clearly has acute hypoxic respiratory failure secondary to COVID-19 pneumonia. As soon as I laid eyes on the patient, recommended immediate transfer to the ICU. Patient was placed on BiPAP however she did not tolerate BiPAP well, and when I went back to evaluate the patient in the ICU, she was basically deteriorating, and she was using her accessory muscles, patient was in severe respiratory distress. Hence I recommended immediate intubation and placement on mechanical ventilation. Chest x-ray continued to show bilateral infiltrates consistent with worsening COVID-19 pneumonia ABG showed a pO2 of 59 pCO2 of 42 pH of 7.05 and this was on the 100% FiO2 20 of PEEP tidal volume of 375 rate of 36. Patient will be given more bicarb and she is already on a bica rb drip. She is receiving insulin and she is also receiving IV fluids in the form of 0.9 normal saline. Sugars were 384. Inflammatory markers were added to be extremely high, LDH 2048, and C-reactive protein of 8.7. D-dimer was borderline elevated at 1.84. On 09/12/2020 patient seen in follow-up in the intensive care unit, yesterday she was emergently transferred to the intensive care and intubated and placed on mechanical ventilator. She remains intubated, sedated on mechanical ventilator, currently on assist control mode of ventilation with a rate 36, tidal vital 375, FiO2 100% and PEEP of 20. This might blood gas reveals pO2 of 62, pCO2 40, pH of 7.35 this was done on FiO2 of 80%, her peak airway pressure is 35, in her plateau pressure is around 32. she is sedated on Diprivan and 60 mics per kilo per minute, 0.9 normal saline at 100 ML per hour, insulin drip is at 4 units per hour, and she has 5% dextrose with 3 units of bicarbonate at 100 ML per hour. Today's labs have been reviewed, showing white blood cell count 10.3, hemoglobin of 14.4, d-dimer has increased to 14.31, and her Lovenox was adjusted and increased to 50 mg twice daily, sodium is 137, potassium is 3.7, chloride is 112, CO2 is up to 21, BUN of 16 creatinine is 1.57, LDH is 2618, CRP is 18.2. Pro-Calcitonin level came back elevated at 3.53, suggesting possibility of bacterial infection She received a liter bolus yesterday after intubation. We will give the patient additional fluid boluses today. Sputum culture has been sent and is pending, blood cultures have been sent. Patient has been placed in prone position at 8:00 last night, and her oxygenation seems to be improved and she satting 97% on 100% FiO2 and subsequently FiO2 was dropped down to 80%, and PEEP is down to 18. She remains in prone positioning, tolerating it well, she is having low-grade fevers, she is in sinus mechanism with tachycardic on the monitor, not requiring any vasopressor support right now, will start tube feedi ngs today when the patient is placed back over in the supine position On 09/13/2020 patient seen in follow-up in intensive care unit, she remains proned, and at the time of our evaluation patient has already been prone for close to 16 hours and is about to be turned back on her spine. She tolerates prone position quite well, she remains intubated, paralyzed and sedated on mechanical ventilator, current vent settings are assist-control mode of ventilation with a rate of 36, tidal volume 375, FiO2 of 70% and PEEP of 18, this point his blood gases show pO2 of 82, pCO2 of 39, and pH of 7.19. She's currently on D5 W with 3 A of bicarbonate at 75 per hour, Diprivan is a 60 mics per kilo per minute, index is at 2 mics per kilo per minute, and insulin drip is at 6 units per hour, patient has not started tube feedings yet. She is in sinus mechanism, hemodynamically stable, not requiring any vasopressor support. Today's chest x-ray has been reviewed showing bilateral lung infiltrates that a ppear to be stable. Today's labs have been reviewed showing white blood cell count of 11.1, hemoglobin 13.2, d-dimer is pending, yesterday his d-dimer was 14.3, patient's Lovenox dose was increased to 50 mg every 24 hours. Her renal function continued to worsen, and her creatinine is up to 3.4 on today's labs, BUN is 24, were bicarb concentration is only 13 on today's labs, sodium is 137, potassium is 4.0. AST is up to 77, ALT and alk phos are within normal limits, yesterday set him inflammatory markers with showing up trending LDH at 2618, and CRP of 18.2. Her pro-calcitonin level was increased yesterday at 3.53 and we added empiric antibiotics in the form of Zosyn. Sputum culture has been sent and has shown no growth. Overnight patient remained oliguric, yesterday we gave her additional fluids, however did not improve her renal function and her kidney function continued to get worse. Nephrology consultation has been requested, she has only been producing urine in the order of 5-10 ML per hour, renal ultrasound has been obtained showing no evidence of hydronephrosis bilaterally. On 09/14/2020 patient seen in follow-up in intensive care unit, she remains intubated, sedated and paralyzed, currently on assist control mode of ventilation with a rate of 36, tidal vital 375, FiO2 of 60% and PEEP of 18. This morning's blood gas was reviewed showing pO2 of 60, pCO2 of 43, and pH of 7.32. This was done on FiO2 of 70%, her peak airway pressure is 40, plateau pressures 26. She is currently on D5 with 3 A of bicarbonate at 100 ML per hour, insulin drip is at 7 units per hour, fentanyl drip is a 0.5 mics per kilo per hour, Diprivan and is at 50 mics per kilo per minute, and index is at 2 mics per kilo per minute. She is tolerating tube feedings of vital high-protein at 27 with a goal 27 standard water flushes. Today's chest x-ray has not been completed yet, because the patient has been in prone position for last 16 hours. Patient tolerates prone in quite well, and her oxygenation improves when she is in prone position. However when she is turned over in the supine position to complete chest x-rays and ADL's, patient's O2 sat drops down to low 80s and her FiO2 requirement increases at that time. Today's labs have been reviewed, and there has been further worsening of her renal function, and patient has made almost no urine overnight. Her BUN is 33, and creatinine is 4.87, nephrology is following, her renal ultrasound showed no evidence of hydronephrosis. Her urinalysis showed possibility of urinary tract infection, and patient has been started on cefepime. Urine culture is pending at this time, blood and sputum cultures have been negative. No fevers overnight, she's not requiring any vasopressor support. On 09/15/2020 patient seen in follow-up in intensive care unit, she remains intubated, sedated and paralyzed on assist-control mode of ventilation with a rate of 36, tidal vital 375, FiO2 100% and PEEP of 18, this morning's blood gas reviewed showing pO2 of 58, pCO2 of 45, and pH is 7.35, this was done on FiO2 of 100%. Her peak airway pressures 44, plateau pressures 38, she is on 0.9 normal saline at 50 ML per hour, Diprivan is a 40 mics per kilo per minute, Nimbex drip is a 2 mics per kilo per minute, and fentanyl drip at 0.5 mics per kilo per hour, she is tolerating tube feedings with vital high-protein is 27 with a goal of 27 standard water flushes. She is in sinus mechanism with a rate of 73, she is hemodynamically stable and not requiring any vasopressors. Today's chest x- ray shows ARDS, bilateral airspace opacities, no significant pleural effusion and no pneumothorax. Today's labs have been reviewed, white blood cell count is 9.9, hemoglobin is 11.3, sodium is 134, respiratory electrolytes were within normal limits, and there has been further worsening of her renal function with BUN of 34, creatinine is 4.78, her urine output has remained very poor. Last night she had her first hemodialysis session and no fluid was removed, this morning she is having another hemodialysis treatments and the goal is to remove half a liter of fluid. Her sputum, blood and urine cultures remained negative thus far, patient's pro-calcitonin level came back significantly elevated at 23.5 suggesting evidence of bacterial infection. Patient remains on cefepime for antibiotic coverage, she also remains on Decadron milligrams twice daily, and Lovenox is 50 mg every 24 hours. The patient is seen today 09/16/2020 in follow-up in the intensive care unit. She remains intubated on the mechanical ventilator. Current settings assist- control at a rate of 36, tidal volume 3 or 75, FiO2 100% and a PEEP of 18. Morning blood gases reveal a pO2 of 61, pCO2 49, pH 7.32. Peak pressures of 48, plateau pressure 43. Chest x-ray continues to show evidence of ARDS, pulmonary edema, diffuse pneumonia. She was not proned last night. The plan is to receive hemodialysis again today. Ultrasound of the chest did not reveal any si gnificant fluid for thoracentesis. Sedated on propofol at 50 mcg/kg/m, fentanyl at 0.5 mcg/kg per hour, Nimbex at 3 mcg/kg/m. Insulin drip at 4 units per hour. She is being nourished with vital HPI at 36 ML's per hour. 0.9 normal saline at 60 ML's per hour. Blood, sputum and urine cultures reveal no growth. White count 11.2. Hemoglobin 11.0. Sodium 134. Potassium 3.4. Creatinine 4.44. G lucose 164. She remains in sinus rhythm. She is continued on Symbicort, albuterol. Antibiotics in the form of cefepime. Remains on Decadron, Lovenox, vitamin supplements. On 09/18/2020 patient seen in follow-up in the intensive care unit. She remains intubated, sedated and paralyzed on mechanical ventilator on assist control mode with a rate of 36, tidal volume 375, FiO2 of 60% and PEEP of 20, this might blood gas shows pO2 of 72, pCO2 38, and pH is 7.35, today's chest x-ray still showing bilateral airspace disease possibly slightly improved compared yesterday's chest x-ray. Patient is currently on multiple drips including 0.9 normal saline at 20 no per hour, Nimbex is at 3 mics per kilo per minute, Diprivan is at 50 mics per kilo per minute, fentanyl drip is at 1 phil per kilo per hour, insulin drip is at 4 units per hour, she is on tube feedings with vital high-protein at a rate of 10 with a goal of 36 and standard water flushes. Patient has been getting hemodialysis treatments, her last treatment was on 09/16/2020 with removal of 1.2 L of fluid. Today's labs have been reviewed, showing white blood cell count of 12.6, hemoglobin of 9.8, last d-dimer from yesterday was 6.83, and patient remains on Lovenox and 50 mg daily, sodium was 133, potassium is 3.2, chloride is 102, CO2 is 21, BUN of 35, creatinine is 4.12. Her last set of inflammatory markers was from yesterday showing improvement although LDH was still elevated at 1913, and CRP was 1.3. She remains on IV Decadron 6 mg twice daily, she is also on cefepime for empiric antibiotic coverage, and so far all her cultures including sputum blood and urine are negative. Patient has been tolerating prone positioning well, and she has been prone up to 16-20 hours on a daily basis. On 09/19/2020 patient seen in follow-up in intensive care unit, she remains sedated, paralyzed and trached to the ventilator currently on assist control mode of ventilation with a rate of 36, tidal volume is 375, FiO2 of 60% and PEEP of 20. This morning's blood gases show pO2 of 85, pCO2 37, and pH of 7.33, and this was done and FiO2 of 60%. She is status post tracheostomy and PEG tube placement yesterday on 09/18/2020, she is currently in supine position, and that she is having hemodialysis treatment. Yesterday 2-1/2 L of fluid was removed with hemodialysis, the goal to remove another 2 L of fluid with today's hemodial ysis treatments, today's chest x-ray shows bilateral multifocal and confluent opacities consistent with COVID-19 infection, and some improved aeration at the periphery of the left lung but worsening opacities throughout the right lung compared to one day earlier. Patient is currently on 0.9 normal seen at 20 ML per hour, Nimbex is at 1.5 mics per kilo per minute, Diprivan is a 50 mics per kilo per minute, we will send is currently off, fentanyl drip is at 1 phil per kilo per hour, and insulin is at 5 units per hour, tube feedings are on hold and are expected to be restarted later on today. His labs have been reviewed showing white blood cell count of 14.3, hemoglobin of 9.6, d-dimer is relatively stable at 6.48, sodium is 130, potassium is 3.5, CO2 of 18, and renal profile shows some improvement with BUN of 34, and creatinine is 3.81. Her inflammatory markers are improving, LDH today is 1686, and CRP is 1.1. Her blood sputum and urine cultures have shown no growth to date. Patient continues on cefepime, current dose Lovenox is 15 mg once daily adjusted for her renal function, and she continues on Decadron 6 mg twice daily. The patient is seen today on 09/20/2020 in follow-up in the intensive care unit. She remains on the mechanical ventilator. Current settings assist-control 36, tidal 5 375, FiO2 50% and a PEEP of 20. Arterial blood gases revealed a PaO2 of 74, pCO2 37, pH 7.37. She remains on fentanyl at 1 mcg/kg per hour. Propofol at 50 g per kilogram per minute. Nimbex is off since yesterday. Insulin drip currently on hold. She normally is receiving vital HPI at 10 MLS per hour with a goal of 27. She is status post tracheostomy and PEG tube placements on 09/18/2020. The plan is for permacath placement today. Chest x-ray continues to show stable diffuse bilateral interstitial and airspace disease with a small right effusion. Blood urine and sputum cultures had revealed no growth. White count 14.5. Hemoglobin 9.1. D-dimer 6.13. Sodium 133. Potassium 3.1. Creatinine 4.27. Glucose 128. LDH 1717. C-reactive protein 1.7. She remains on Decadron, Lovenox, vitamin supplements. Continued on bronchodilators. Objective - Vital Signs Vital signs: Vital Signs Temp 98.7 F 09/20/20 08:56 Pulse 53 L 09/20/20 07:00 Resp 36 H 09/20/20 08:56 BP 121/70 09/20/20 08:56 Pulse Ox 91 L 09/20/20 07:00 Intake & Output 09/19/20 09/20/20 09/20/20 18:59 06:59 18:59 Intake Total 920.002 770.280 43 Output Total 2500 20 2500 Balance -1579.998 750.280 -2457 Weight 117.2 kg Intake: IV 276 276 43 0.9 240 240 20 Pressure Bag 36 36 3 Intake, IV Titration 499.002 404.280 Amount Cisatracurium 200 mg In 82.602 Sodium Chloride 0.9% 180 ml @ 1 MCG/KG/MIN 6.015 mls/hr IV .Q24H [facility] Rx#: [id number] Insulin Regular 100 unit 31.058 89.622 In Sodium Chloride 0.9% 100 ml @ Per Protocol IV .Q0M [facility] Rx#:[id number] fentaNYL (PF). 1,000 mcg 85.342 14.658 In Sodium Chloride 0.9% 80 ml @ Per Protocol IV . Q0M [facility] Rx#:[id number] propofoL 1,000 mg In 300 300 Empty Bag 1 bag @ Titrate IV .Q0M [facility] Rx#: [id number] Tube Feeding 70 90 0 Other 75 Output: Urine 0 20 0 Hemodialysis 2500 2500 Other: Voiding Method Indwelling Catheter Indwelling Catheter ABP, PAP, CO, CI - Last Documented Arterial Blood Pressure 111/51 - Exam GENERAL EXAM: Sedated, 35-year-old female patient, on assist control mode of ventilation with FiO2 50 percent and PEEP of 20, with a pulse ox of 91% comfortable in no apparent distress. HEAD: Normocephalic/atraumatic. EYES: Normal reaction of pupils, equal size. Conjunctiva pink, sclera white. NOSE: Clear with pink turbinates. THROAT: No erythema or exudates. NECK: Tracheostomy tube secured in place. No masses, no JVD, no thyroid enlargement, no adenopathy. CHEST: No chest wall deformity. Symmetrical expansion. LUNGS: Equal air entry with bilateral crackles CVS: Regular rate and rhythm, normal S1 and S2, no gallops, no murmurs, no rubs ABDOMEN: PEG tube exit site clean and dry. No hepatosplenomegaly, normal bowel sounds, no guarding or rigidity. EXTREMITIES: No clubbing, no edema, no cyanosis, 2+ pulses and upper and lower extremities. MUSCULOSKELETAL: Muscle strength and tone normal. SPINE: No scoliosis or deformity SKIN: No rashes CENTRAL NERVOUS SYSTEM: Sedated. No focal deficits, tone is normal in all 4 e xtremities. - Labs CBC & Chem 7: 09/20/20 05:05 09/20/20 05:05 Labs: Abnormal Lab Results - Last 24 Hours (Table) 09/19/20 09/19/20 09/19/20 Range/Units 10:23 11:32 14:15 WBC (3.8-10.6) k/uL RBC (3.80-5.40) m/uL Hgb (11.4-16.0) gm/dL Hct (34.0-46.0) % D-Dimer (<0.60) mg/L FEU ABG pO2 (83-108) mmHg Sodium (137-145) mmol/L Potassium (3.5-5.1) mmol/L Carbon Dioxide (22-30) mmol/L BUN (7-17) mg/dL Creatinine (0.52-1.04) mg/dL Glucose (74-99) mg/dL POC Glucose (mg/dL) 100 H 109 H 177 H (75-99) mg/dL Lactate Dehydrogenase (313-618) U/L C-Reactive Protein (<1.0) mg/dL 09/19/20 09/19/20 09/19/20 Range/Units 17:36 20:35 21:57 WBC (3.8-10.6) k/uL RBC (3.80-5.40) m/uL Hgb (11.4-16.0) gm/dL Hct (34.0-46.0) % D-Dimer (<0.60) mg/L FEU ABG pO2 (83-108) mmHg Sodium (137-145) mmol/L Potassium (3.5-5.1) mmol/L Carbon Dioxide (22-30) mmol/L BUN (7-17) mg/dL Creatinine (0.52-1.04) mg/dL Glucose (74-99) mg/dL POC Glucose (mg/dL) 129 H 216 H 225 H (75-99) mg/dL Lactate Dehydrogenase (313-618) U/L C-Reactive Protein (<1.0) mg/dL 09/19/20 09/20/20 09/20/20 Range/Units 23:21 03:31 05:05 WBC (3.8-10.6) k/uL RBC (3.80-5.40) m/uL Hgb (11.4-16.0) gm/dL Hct (34.0-46.0) % D-Dimer (<0.60) mg/L FEU ABG pO2 (83-108) mmHg Sodium (137-145) mmol/L Potassium (3.5-5.1) mmol/L Carbon Dioxide (22-30) mmol/L BUN (7-17) mg/dL Creatinine (0.52-1.04) mg/dL Glucose (74-99) mg/dL POC Glucose (mg/dL) 215 H 134 H 148 H (75-99) mg/dL Lactate Dehydrogenase (313-618) U/L C-Reactive Protein (<1.0) mg/dL 09/20/20 09/20/20 09/20/20 Range/Units 05:05 05:05 05:05 WBC 14.5 H (3.8-10.6) k/uL RBC 3.26 L (3.80-5.40) m/uL Hgb 9.1 L (11.4-16.0) gm/dL Hct 27.3 L (34.0-46.0) % D-Dimer 6.13 H (<0.60) mg/L FEU ABG pO2 (83-108) mmHg Sodium 133 L (137-145) mmol/L Potassium 3.1 L (3.5-5.1) mmol/L Carbon Dioxide 18 L (22-30) mmol/L BUN 35 H (7-17) mg/dL Creatinine 4.27 H (0.52-1.04) mg/dL Glucose 128 H (74-99) mg/dL POC Glucose (mg/dL) (75-99) mg/dL Lactate Dehydrogenase 1717 H (313-618) U/L C-Reactive Protein 1.7 H (<1.0) mg/dL 09/20/20 09/20/20 Range/Units 05:08 06:22 WBC (3.8-10.6) k/uL RBC (3.80-5.40) m/uL Hgb (11.4-16.0) gm/dL Hct (34.0-46.0) % D-Dimer (<0.60) mg/L FEU ABG pO2 74 L (83-108) mmHg Sodium (137-145) mmol/L Potassium (3.5-5.1) mmol/L Carbon Dioxide (22-30) mmol/L BUN (7-17) mg/dL Creatinine (0.52-1.04) mg/dL Glucose (74-99) mg/dL POC Glucose (mg/dL) 120 H (75-99) mg/dL Lactate Dehydrogenase (313-618) U/L C-Reactive Protein (<1.0) mg/dL Assessment and Plan Assessment: 1 Acute hypoxic respiratory failure secondary to COVID-19 pneumonia, transferred to the intensive care unit on 09/11/2020 and intubated and placed on mechanical ventilator on 09/11/2020. Patient received 1 dose of Remdesivir on 09/11/2020, however based on her quick progression of her hypoxic respiratory failure she received Tocilizumab 800 mg on 09/11/2020. Tracheostomy and PEG tube placed on 09/18/2020. 2 Acute kidney injury related to ATN, nephrology has been consulted, ultrasound of the kidneys showed no evidence of hydronephrosis. Patient was initiated on hemodialysis on 09/14/2020 3 Acute diabetic ketoacidosis, resolved 4 Acute metabolic acidosis related to acute DKA, and acute kidney injury. Maintained on bicarbonate infusion 5 Increased d-dimer, related to COVID-19 pneumonia, currently on Lovenox 50 mg twice daily 6 Possible sepsis with increased pro-calcitonin suggesting presence of bacterial infection, cultures have been sent, patient has been started on Zosyn for empiric antibiotics coverage 7 Diabetes mellitus type 2 8 Morbid obesity with BMI 45.3 kg/m 9 Nonsmoker Plan: The patient was seen and evaluated by Dr. Issa Chest x-ray, ABGs and labs reviewed We will continue the current treatment plan Permacath being placed today Receiving hemodialysis Continue tube feedings as tolerated Prognosis is quite guarded Repeat chest x-ray, ABGs and labs in the a.m. We will continue to follow and make further recommendations based on her clinical status Critical care time 35 minutes I, the cosigning physician, performed a history & physical examination of the patient. Lungs sounds with crackles in the bilateral bases. Maintaining O2 saturations in the 80s low 90s on 50% FiO2 and a PEEP of 18 per the mechanical ventilator. I discussed the assessment and plan of care with my nurse practitioner, Kyara Concepcion. I attest to the above note as dictated by her.
--- NOTE | 2020-09-20 09:48 | P.OP ---
Date of Procedure: 09/20/20 Preoperative Diagnosis: Acute renal failure requiring long-term hemodialysis. Postoperative Diagnosis: Same Procedure(s) Performed: Wire exchange of a non-tunneled 28 tunneled hemodialysis catheter via the right internal jugular vein approach with fluoroscopic guidance. Anesthesia: GETA (Patient maintained on ventilator via a previously placed tracheostomy.) Religious Education Coordinator #1: Bruno Albarran Estimated Blood Loss (ml): 5 Pathology: none sent Condition: stable Disposition: ICU Indications for Procedure: Chronic renal failure requiring long-term hemodialysis. Description of Procedure: A shunt was brought to the special procedure suite. She had previously undergone placement of a non-tunneled hemodialysis catheter via the right internal jugular vein approach. She also had previously undergone a tracheostomy. The tracheostomy was secured with nylon suture and the circumferentially placed umbilical tape that was holding the trach in place was transected. Care was taken to avoid dislodgment of the tracheostomy. The patient's right lateral neck supraclavicular and anterior chest wall areas were sterilely prepped and draped in usual manner. 1% Xylocaine was utilized for local anesthesia at the neck wound. A guidewire was advanced through the temporary catheter and the catheter removed. Vessel dilator was advanced over the guidewire to obtain hemostasis. Additional Xylocaine was utilized for local anesthesia of the tissues just lateral to and 1 fingerbreadth inferior to the angle of the clavicle as well as the tissues leading to the neck incision. A skin incision was made just below the angle of the clavicle and the hemodialysis catheter was tunneled between the 2 incisions. The cuff was maintained in the subcutaneous position. The dilator was removed from the guidewire and the sheath and dilator for the dialysis catheter was advanced over the guidewire. The dilator and guidewire withdrawn and the catheter was advanced down through the sheath and the sheath was then peeled away. Fluoroscopy demonstrated the catheter to be in good position without evidence of kinking of the catheter tubing catheter was secured to the skin with nylon suture in the neck wound was closed with Vicryl suture. Proper dressings were applied after demonstrating easy/unrestricted blood flow through each limb of the catheter. Each limb of the catheter was then locked with heparinized saline. Patient tolerated procedure well. She was returned to the intensive care unit in satisfactory and stable condition. Total fluoroscopy time 6 seconds.
[2020-09-20] MEDS ORDERED: ceFAZolin 1,000 MG VIAL (IM USE) IM STA (09:50)
[2020-09-20 10:10] LABS: Glucose,Whole Blood 124 mg/dL (75-99)
[2020-09-20] MEDS: SODIUM CHLORIDE 0.9% 500 ML 500 ML IV SCH (11:06)
[2020-09-20 12:22] LABS: Glucose,Whole Blood 143 mg/dL (75-99)
--- NOTE | 2020-09-20 13:14 | P.PN ---
Subjective Progress Note Date: 09/20/20 CHIEF COMPLAINT: COVID-19 pneumonia HISTORY OF PRESENT ILLNESS: Patient is in the ICU for COVID-19 pneumonia and respiratory failure. She is status post tracheostomy and PEG tube placement with Dr. hollis. Patient is tolerating tube feedings. She is currently on 10 mL per hour of tube feedings. This Patient had hemodialysis today. She remains on fentany and propofol. She is status post permacath placement. Afebrile WBC 14.5 Patient seen and examined with Dr. hollis PHYSICAL EXAM: VITAL SIGNS: Reviewed. GENERAL: Well-developed in no acute distress. HEENT: No sclera icterus. Extraocular movements grossly intact. Moist buccal mucosa. Head is atraumatic, normocephalic. Tracheostomy site with bleeding around trach ABDOMEN: Soft. Nondistended. Nontender. PEG tube site clean dry and intact NEUROLOGIC: Sedated ASSESSMENT: 1. Acute hypoxic respiratory failure with prolonged mechanical ventilation due to COVID-19 pneumonia status post tracheostomy placement 2. Severe protein calorie malnutrition status post PEG tube placement PLAN: -Continue titrating tube feedings per dietitian recommendations -Continue supportive care -Continue ICU management Physician Tavern Keeper note has been reviewed by physician. Signing provider agrees with the documented findings, assessment, and plan of care. Objective - Vital Signs Vital signs: Vital Signs Temp 98.4 F 09/20/20 10:00 Pulse 63 09/20/20 11:00 Resp 38 H 09/20/20 11:00 BP 121/70 09/20/20 08:56 Pulse Ox 99 09/20/20 11:00 Intake & Output 09/19/20 09/20/20 09/20/20 18:59 06:59 18:59 Intake Total 920.002 770.280 298.718 Output Total 2500 20 2500 Balance -1579.998 750.280 -2201.282 Weight 117.2 kg Intake: IV 276 276 69 0.9 Normal Saline @ KVO 240 240 40 Pressure Bag 36 36 9 Intake, IV Titration 499.002 404.280 187.718 Amount Cisatracurium 200 mg In 82.602 Sodium Chloride 0.9% 180 ml @ 1 MCG/KG/MIN 6.015 mls/hr IV .Q[facility]H [facility] Rx#: [id number] Insulin Regular 100 unit 31.058 89.622 In Sodium Chloride 0.9% 100 ml @ Per Protocol IV .Q0M [facility] Rx#:[id number] fentaNYL (PF). 1,000 mcg 85.342 14.658 87.718 In Sodium Chloride 0.9% 80 ml @ Per Protocol IV . Q0M [facility] Rx#:[id number] propofoL 1,000 mg In 300 300 100 Empty Bag 1 bag @ Titrate IV .Q0M [facility] Rx#: [id number] Tube Feeding 70 90 42 Other 75 0 Output: Urine 0 20 0 Hemodialysis 2500 2500 Other: Voiding Method Indwelling Catheter Indwelling Catheter ABP, PAP, CO, CI - Last Documented Arterial Blood Pressure 165/65 - Labs CBC & Chem 7: 09/20/20 05:05 09/20/20 05:05 Labs: Abnormal Lab Results - Last 24 Hours (Table) 09/19/20 09/19/20 09/19/20 Range/Units 14:15 17:36 20:35 WBC (3.8-10.6) k/uL RBC (3.80-5.40) m/uL Hgb (11.4-16.0) gm/dL Hct (34.0-46.0) % D-Dimer (<0.60) mg/L FEU ABG pO2 (83-108) mmHg Sodium (137-145) mmol/L Potassium (3.5-5.1) mmol/L Carbon Dioxide (22-30) mmol/L BUN (7-17) mg/dL Creatinine (0.52-1.04) mg/dL Glucose (74-99) mg/dL POC Glucose (mg/dL) 177 H 129 H 216 H (75-99) mg/dL Lactate Dehydrogenase (313-618) U/L C-Reactive Protein (<1.0) mg/dL 09/19/20 09/19/20 09/20/20 Range/Units 21:57 23:21 03:31 WBC (3.8-10.6) k/uL RBC (3.80-5.40) m/uL Hgb (11.4-16.0) gm/dL Hct (34.0-46.0) % D-Dimer (<0.60) mg/L FEU ABG pO2 (83-108) mmHg Sodium (137-145) mmol/L Potassium (3.5-5.1) mmol/L Carbon Dioxide (22-30) mmol/L BUN (7-17) mg/dL Creatinine (0.52-1.04) mg/dL Glucose (74-99) mg/dL POC Glucose (mg/dL) 225 H 215 H 134 H (75-99) mg/dL Lactate Dehydrogenase (313-618) U/L C-Reactive Protein (<1.0) mg/dL 09/20/20 09/20/20 09/20/20 Range/Units 05:05 05:05 05:05 WBC 14.5 H (3.8-10.6) k/uL RBC 3.26 L (3.80-5.40) m/uL Hgb 9.1 L (11.4-16.0) gm/dL Hct 27.3 L (34.0-46.0) % D-Dimer 6.13 H (<0.60) mg/L FEU ABG pO2 (83-108) mmHg Sodium (137-145) mmol/L Potassium (3.5-5.1) mmol/L Carbon Dioxide (22-30) mmol/L BUN (7-17) mg/dL Creatinine (0.52-1.04) mg/dL Glucose (74-99) mg/dL POC Glucose (mg/dL) 148 H (75-99) mg/dL Lactate Dehydrogenase (313-618) U/L C-Reactive Protein (<1.0) mg/dL 09/20/20 09/20/20 09/20/20 Range/Units 05:05 05:08 06:22 WBC (3.8-10.6) k/uL RBC (3.80-5.40) m/uL Hgb (11.4-16.0) gm/dL Hct (34.0-46.0) % D-Dimer (<0.60) mg/L FEU ABG pO2 74 L (83-108) mmHg Sodium 133 L (137-145) mmol/L Potassium 3.1 L (3.5-5.1) mmol/L Carbon Dioxide 18 L (22-30) mmol/L BUN 35 H (7-17) mg/dL Creatinine 4.27 H (0.52-1.04) mg/dL Glucose 128 H (74-99) mg/dL POC Glucose (mg/dL) 120 H (75-99) mg/dL Lactate Dehydrogenase 1717 H (313-618) U/L C-Reactive Protein 1.7 H (<1.0) mg/dL 09/20/20 09/20/20 Range/Units 10:08 12:20 WBC (3.8-10.6) k/uL RBC (3.80-5.40) m/uL Hgb (11.4-16.0) gm/dL Hct (34.0-46.0) % D-Dimer (<0.60) mg/L FEU ABG pO2 (83-108) mmHg Sodium (137-145) mmol/L Potassium (3.5-5.1) mmol/L Carbon Dioxide (22-30) mmol/L BUN (7-17) mg/dL Creatinine (0.52-1.04) mg/dL Glucose (74-99) mg/dL POC Glucose (mg/dL) 124 H 143 H (75-99) mg/dL Lactate Dehydrogenase (313-618) U/L C-Reactive Protein (<1.0) mg/dL
--- NOTE | 2020-09-20 13:42 | P.PN ---
Subjective Progress Note Date: 09/20/20 HISTORY OF PRESENT ILLNESS 35-year-old female patient of Dr. Arroyo with past medical history of type 2 diabetes comes in with acute shortness of breath associated with high light s ugars. Patient on admission was found to have a fever of 101.5 pulse rate 125 respiratory rate 20. Blood pressure 132/106. On chest x-ray obtained in the ER suggestive of bilateral infiltrates concerning for call with pneumonia. COVID PCR was positive. On admissions patient had an ABG with a pH of 7.14 pCO2 of 20, pO2 of 59, bicarb of 7. Patient's blood sugar on admission was 424 on assessment today patient's blood work patient had a sodium 135 potassium 5.4 chloride 123 bicarb less than 5 and creatinine 0.73. D-dimer was elevated on admission patient 9 28 patient given 1 L of IV fluids followed by normal saline running at 200 mL/h. Patient was positive for acetone on admission. She will anion gap closed and was switched to D5NS. Insulin drip was continued during the night and was switched to patient's home medication this morning. One dose of remdesiver was ordered. Apparently around noon, A- team was called on the patient secondary to hypoxia patient's oxygen saturation dropped to the 70s and 80s on 100% nonrebreather. Patient was switched to BiPAP on 18/12 and is doing better o FiO2 of 80%. ABG was obtained and ph was 7. 14 pCO2 of 28 bicarb of 7 pO2 of 17. Patient noted to have uncompensated metabolic acidosis with compensated respiratory alkalosis. Stat dose of 1 amp bicarb was given and followed by sodium bicarbonate drip. Insulin drip restarted. Patient's initiated on dexamethasone 6 mg IV twice a day. Potassium phosphate ordered as phosphorus is low. Patient's repeat blood gases suggest a pH of 7.25, CO2 32 pO2 of 72 bicarb 14. I will not normal saline at 100 mL/h as patient's anion gap has increased. Patient given 1 dose of 2 mg of morphine with improvement in respiratory rate. One dose of Ativan 0.5 mg was given. Xanax 0.25 twice a day along with Ativan 0.5 IV every 6 hours ordered for the patient. Vitals were evaluated patient pulse 129 [id number]. She was moved to the ICU. Precedex drip was initiated. Lopressor was initiated at 25 twice a day. Metoprolol tartrate 5 mg IV every 6 hours. Systolic blood pressure more than 160. Started chest x-ray was obtained and suggest stable bilateral consolidation suggestive of COVID-19 pneumonia. 09/12 patient is seen in the ICU is currently mechanically ventilated and sedated on vent settings of respiratory rate 36, tidal volume 375 FiO2 80% PEEP of 18.. Vital signs reviewed patient had a temp of 100.4 pulse 150 respiratory rate 36 oxygen saturation 95% on 80% on fio2 .'s labs are reviewed which patient had a d-dimer 1.84 that is increased to 14.3. Arterial Blood gas suggest ph 7.35, CO2 40, po2 62, . Her BMP suggest a sodium 135 potassium 3.7 chloride 112 bicarb 21 creatinine 1.57 for calcitonin is 3.5 CRP is increased from 8.78.2 LDH is increased to 2614. Patient remains on Pneumovax, propofol drip. Lovenox increased to 50 subcu twice a day. Patient received 2 L of IV fluids. Continue IV fluids at 100 mL/h. Bicarb drip discontinued patient initiated on Zosyn 3.375 every 8 hours. Continue insulin drip at 4 units per hour. Patient is currently in prone positioning 09/13: Patient evaluated in the ICU remains on Ventilation continues to be sedated, in prone position. Vent settings are respiratory rate 36, tidal vital 375, FiO2 70% PEEP of 18. ABG shows pO2 of 82, PCO2 of 39, pH is 7.19. Latest labs show WBC 11.1, hemoglobin 13.2, d-dimer still pending, but yesterday was up to 14.3. Creatinine up to 3.4, BUN 24 sodium 137, potassium 4.0. Patient's urine output has been low, nephrology on consult. Bicarb drip increased to 100 miles an hour, receiving another liter of normal saline, she did have a ultrasound that showed unremarkable bilateral kidneys. Repeat chest x-ray showed bilateral lung infiltrates that are stable. Anion gap has closed, will start Lantus 10 units at at bedtime Novolog every 6 hours. 09/14: Patient is seen in the ICU, still currently mechanically ventilated and sedated. She continues in the prone position. Her oxygen quickly drops if she is not in prone. Patient's kidney function has worsened. Laboratory values show creatinine of 4.87, BUN 33, LDH 2191, C-reactive protein 2.7. ABG shows pH 7.32, pO2 of 60, pCO2 43. Patient is making almost no urine overnight. Nephrology is following patient continues on cefepime for urinary tract infection, culture is still pending. Vascular has been consulted for placement of temporary hemodialysis catheter for plans for dialysis. 09/15: Patient evaluated in the ICU, continues to be mechanically ventilated and sedated on assist control ventilation rate of 36, tidal volume 375, FiO2 100% and PEEP of 18. ABG today shows pO2 58, pCO2 of 45, and pH 7.35. She continues on tube feedings. Yesterday patient underwent ultrasound-guided right internal jugular non-tunneled hemodialysis catheter placement. Patient underwent hemodialysis treatment last night and plans have another hemodialysis treatment today. She continues to make almost no urine. She continues on cefepime for antibiotic coverage, and continues on Decadron and Lovenox. 09/16: Patient seen on follow-up remains in the ICU mechanically ventilated and sedated. She continues on assist control rate of 36, tidal volume 375, FiO2 100% and PEEP of 20. PEEP had to be increased due to patient had to be in supine position for dialysis, will go back to prone position once dialysis is complete. ABG shows pH 7.32, pCO2 49, PaO2 61. Laboratory values showed WBC 11.2, hemoglobin 11, sodium 134, creatinine 4.44, BUN 38. Urine culture shows no growth, blood cultures show no growth to date. Repeat chest x-ray shows bilateral pleural effusions, correlate for ARDS, pulmonary edema, diffuse pneumonia, findings are stable from last exam. Patient does not require any pressors, blood pressure 133/57, heart rate 78. 5/16: Patient was evaluated in the ICU today for follow-up. She continues to be intubated and on mechanical ventilation. Current vent settings are tidal volume 375, FiO2 100% and PEEP of 20. ABG shows pH 7.37, pCO2 40, pO2 102. She continues with intermittent prone positioning. Patient continues to have almost no urine output, maintained on dialysis. Patient received dialysis yesterday without complication. Laboratory values revealed WBC 10.3, hemoglobin 10.4, sodium 132, potassium 3.1, BUN 33, creatinine 4.29, LDH 1913, C-reactive protein 1.3. Urine and sputum cultures are negative, blood cultures show no growth to date. Consult placed to dietary to start TPN[ ] 09/18: She remains in the intensive care unit intubated and on mechanical ventilation with tidal volume 375, FiO2 60 and PEEP of 20. Patient is being prone to daily at approximately 16 hours per day. Pulmonary medicine has added in Dr. Zhang to do PEG tube and trach today. Patient is not on vasopressors. Repeat blood work reveals WBC 12.6, hemoglobin 9.8, platelet count 212. Sodium 133, potassium 3.2, chloride 102, CO2 21, BUN 35 and creatinine 4.12. Blood sugar 126. Patient underwent hemodialysis yesterday with removal of 2 L and is scheduled again today with goal of 2-3 L and is scheduled again tomorrow. 09/19: She is scheduled for hemodialysis today and is off fentanyl temporarily. Patient is status post trach and PEG tube yesterday. And she remains on mechanical ventilation. Pulse ox 93-95%. She has been afebrile, heart rate 64, respiratory rate 36, blood pressure 115/50. Fentanyl is off to improve blood pressure for hemodialysis which is scheduled for today. Contacted vascular surgery about permanent hemodialysis catheter. Repeat blood work reveals WBC 14.3, hemoglobin 9.6, platelet count 200. D-dimer 6.48. LDH 1686. C-reactive protein 1.1. BUN 34 creatinine 3.81. Sodium 130, potassium 3.5, chloride 101, CO2 18. Blood sugars running between 101 198. Plan is to wean off Pneumovax today. Patient remains on insulin drip. Repeat chest x-ray reveals bilateral multifocal confluent opacities consistent with COVID-19. Some improved aeratio n periphery of the left lung and worsening opacities throughout the right lung. 09/20: She remains in the intensive care unit on mechanical ventilation. She has been afebrile, heart rate 65, respiratory rate 37, blood pressure 121/70, pulse ox 91-99%. Repeat blood work reveals WBC 14.5, hemoglobin 9.1, platelet count 216. D-dimer 6.13. Sodium 133, potassium 3.1, chloride 102, CO2 18, BUN 35 and creatinine 4.27. Blood sugars running between 128 and 143. LDH 1717. C- reactive protein 1.7. Patient remains on insulin drip which will be transitioned to NovoLog scale every 6 hours. Patient is scheduled for permanent hemodialysis catheter placement today with vascular surgery. Repeat chest x-ray reveals stable diffuse bilateral interstitial and airspace disease. Possible small right effusion. His work is following for [facility]. Do not anticipate discharge until next week. REVIEW OF SYSTEMS Unable to obtain due to intubation. PHYSICAL EXAMINATION Gen: This is is a 35-year-old black female, patient is intubated and on mechanical ventilation, patient is currently in prone position. She appears to be comfortable. Full physical exam was deferred to supervisor webbing due to Covid 19 and intubation. ASSESSMENT AND PLAN 1. Acute hypoxic respiratory failure secondary to Covid 19 pneumonia and possible bacterial pneumonia. Patient was intubated on September 11. She is status post 1 dose of Remdesivir and 1 dose of Tocilizumab. Continue Ventolin inhaler 4 times daily, Symbicort twice daily, Neurontin 6 mg IV twice daily, Lovenox 50 mg subcu daily, supplements. Status post PEG tube and trach. 2. Acute diabetic ketoacidosis secondary to Covid 19 pneumonia. Patient was status post 3 L of IV fluid. Anion gap closed. Continue.Patient is currently on insulin drip. 3. Metabolic encephalopathy secondary to Covid 19 and DKA. 4. Sepsis secondary to Covid 19 pneumonia. Continue as in #1. 5. Acute metabolic acidosis secondary to acute DKA, Covid 19 and acute kidney injury. 6. Diabetes mellitus type 2 uncontrolled with A1c 13.6. Patient be taken off insulin drip and started on NovoLog scale every 6 hours. 7. Hypophosphatemia status post replacement. 8. Hyperkalemia secondary to DKA, resolved. 9. Sinus tachycardia secondary to sepsis, volume deficiency.Continue Lopressor 25 mg twice daily. 10. Acute kidney injury secondary to ATN secondary to Covid 19 and DKA. Patient continued on hemodialysis. Permanent dialysis catheter to be placed today with vascular surgeon. 11. Hypertension. 12. Morbid obesity with BMI of 53. 13. DVT prophylaxis. Lovenox. 14. GI prophylaxis. Protonix 40 mg IV push daily. CODE STATUS: Full code Prognosis guarded. Impression and plan of care have been directed as dictated by the signing physician. Kimberly Boswell nurse practitioner acting as scribe for signing physician. Objective - Vital Signs Vital signs: Vital Signs Temp 98.4 F 09/20/20 10:00 Pulse 63 05/19/21 11:00 Resp 38 H 09/20/20 11:00 BP 121/70 09/20/20 08:56 Pulse Ox 99 09/20/20 11:00 Intake & Output 09/19/20 09/20/20 09/20/20 18:59 06:59 18:59 Intake Total 920.002 770.280 298.718 Output Total 2500 20 2500 Balance -1579.998 750.280 -2201.282 Weight 117.2 kg Intake: IV 276 276 69 0.9 Normal Saline @ KVO 240 240 40 Pressure Bag 36 36 9 Intake, IV Titration 499.002 404.280 187.718 Amount Cisatracurium 200 mg In 82.602 Sodium Chloride 0.9% 180 ml @ 1 MCG/KG/MIN 6.015 mls/hr IV .Q24H [facility] Rx#: [id number] Insulin Regular 100 unit 31.058 89.622 In Sodium Chloride 0.9% 100 ml @ Per Protocol IV .Q0M [facility] Rx#:[id number] fentaNYL (PF). 1,000 mcg 85.342 14.658 87.718 In Sodium Chloride 0.9% 80 ml @ Per Protocol IV . Q0M [facility] Rx#:[id number] propofoL 1,000 mg In 300 300 100 Empty Bag 1 bag @ Titrate IV .Q0M [facility] Rx#: [id number] Tube Feeding 70 90 42 Other 75 0 Output: Urine 0 20 0 Hemodialysis 2500 2500 Other: Voiding Method Indwelling Catheter Indwelling Catheter ABP, PAP, CO, CI - Last Documented Arterial Blood Pressure 165/65 - Labs CBC & Chem 7: 09/20/20 05:05 09/20/20 05:05 Labs: Abnormal Lab Results - Last 24 Hours (Table) 09/19/20 09/19/20 09/19/20 Range/Units 14:15 17:36 20:35 WBC (3.8-10.6) k/uL RBC (3.80-5.40) m/uL Hgb (11.4-16.0) gm/dL Hct (34.0-46.0) % D-Dimer (<0.60) mg/L FEU ABG pO2 (83-108) mmHg Sodium (137-145) mmol/L Potassium (3.5-5.1) mmol/L Carbon Dioxide (22-30) mmol/L BUN (7-17) mg/dL Creatinine (0.52-1.04) mg/dL Glucose (74-99) mg/dL POC Glucose (mg/dL) 177 H 129 H 216 H (75-99) mg/dL Lactate Dehydrogenase (313-618) U/L C-Reactive Protein (<1.0) mg/dL 09/19/20 09/19/20 09/20/20 Range/Units 21:57 23:21 03:31 WBC (3.8-10.6) k/uL RBC (3.80-5.40) m/uL Hgb (11.4-16.0) gm/dL Hct (34.0-46.0) % D-Dimer (<0.60) mg/L FEU ABG pO2 (83-108) mmHg Sodium (137-145) mmol/L Potassium (3.5-5.1) mmol/L Carbon Dioxide (22-30) mmol/L BUN (7-17) mg/dL Creatinine (0.52-1.04) mg/dL Glucose (74-99) mg/dL POC Glucose (mg/dL) 225 H 215 H 134 H (75-99) mg/dL Lactate Dehydrogenase (313-618) U/L C-Reactive Protein (<1.0) mg/dL 09/20/20 09/20/20 09/20/20 Range/Units 05:05 05:05 05:05 WBC 14.5 H (3.8-10.6) k/uL RBC 3.26 L (3.80-5.40) m/uL Hgb 9.1 L (11.4-16.0) gm/dL Hct 27.3 L (34.0-46.0) % D-Dimer 6.13 H (<0.60) mg/L FEU ABG pO2 (83-108) mmHg Sodium (137-145) mmol/L Potassium (3.5-5.1) mmol/L Carbon Dioxide (22-30) mmol/L BUN (7-17) mg/dL Creatinine (0.52-1.04) mg/dL Glucose (74-99) mg/dL POC Glucose (mg/dL) 148 H (75-99) mg/dL Lactate Dehydrogenase (313-618) U/L C-Reactive Protein (<1.0) mg/dL 09/20/20 09/20/20 09/20/20 Range/Units 05:05 05:08 06:22 WBC (3.8-10.6) k/uL RBC (3.80-5.40) m/uL Hgb (11.4-16.0) gm/dL Hct (34.0-46.0) % D-Dimer (<0.60) mg/L FEU ABG pO2 74 L (83-108) mmHg Sodium 133 L (137-145) mmol/L Potassium 3.1 L (3.5-5.1) mmol/L Carbon Dioxide 18 L (22-30) mmol/L BUN 35 H (7-17) mg/dL Creatinine 4.27 H (0.52-1.04) mg/dL Glucose 128 H (74-99) mg/dL POC Glucose (mg/dL) 120 H (75-99) mg/dL Lactate Dehydrogenase 1717 H (313-618) U/L C-Reactive Protein 1.7 H (<1.0) mg/dL 09/20/20 09/20/20 Range/Units 10:08 12:20 WBC (3.8-10.6) k/uL RBC (3.80-5.40) m/uL Hgb (11.4-16.0) gm/dL Hct (34.0-46.0) % D-Dimer (<0.60) mg/L FEU ABG pO2 (83-108) mmHg Sodium (137-145) mmol/L Potassium (3.5-5.1) mmol/L Carbon Dioxide (22-30) mmol/L BUN (7-17) mg/dL Creatinine (0.52-1.04) mg/dL Glucose (74-99) mg/dL POC Glucose (mg/dL) 124 H 143 H (75-99) mg/dL Lactate Dehydrogenase (313-618) U/L C-Reactive Protein (<1.0) mg/dL
--- NOTE | 2020-09-20 15:30 | IR ---
Fluoroscopy HISTORY: Intravenous catheter placement for renal failure 0.1 minutes fluoroscopy time supplied to the referring clinician. 31 intraoperative C-arm images doc ument the procedure. See dictated report from vascular surgery.
[2020-09-20 18:26] LABS: Glucose,Whole Blood 246 mg/dL (75-99)
[2020-09-20] MEDS: INSULIN ASPART (NovoLOG) 100 UNIT/ML VIAL SQ SCH (18:27)
[2020-09-20] MEDS: NOREPINEPHRINE 8 MG in SODIUM CHLORIDE 0.9% 250 ML IV SCH (18:27)
[2020-09-21 00:26] LABS: Glucose,Whole Blood 269 mg/dL (75-99)
[2020-09-21] MEDS: INSULIN ASPART (NovoLOG) 100 UNIT/ML VIAL SQ SCH ×4 (00:28→18:00)
[2020-09-21] MEDS: fentaNYL (PF). 1,000 MCG in SODIUM CHLORIDE 0.9% 80 ML IV SCH ×2 (04:47→11:28)
[2020-09-21 05:12] LABS: Basophils # (A) 0.1 k/uL (0-0.2); Basophils % (A) 1 %; Eosinophils # (A) 0.1 k/uL (0-0.7); Eosinophils % (A) 1 %; HCT 25.7 % (34.0-46.0); HGB 8.7 gm/dL (11.4-16.0); Lymphocytes % (A) 7 %; MCH 28.6 pg (25.0-35.0); MCHC 33.8 g/dL (31.0-37.0); MCV 84.8 fL (80.0-100.0); Mean Platelet Volume 10.4; Monocytes # (A) 0.5 k/uL (0-1.0); Monocytes % (A) 4 %; Neutrophils # (A) 11.5 k/uL (1.3-7.7); Neutrophils % (A) 86 %; Platelet Count 192 k/uL (150-450); Poikilocytosis Slight; RBC 3.03 m/uL (3.80-5.40); RDW 14.9 % (11.5-15.5); WBC 13.3 k/uL (3.8-10.6)
[2020-09-21 05:29] LABS: Albumin 2.2 g/dL (3.5-5.0); Calcium 9.7 mg/dL (8.4-10.2); Potassium 3.6 mmol/L (3.5-5.1); Total Bilirubin 0.2 mg/dL (0.2-1.3); Total Protein 4.6 g/dL (6.3-8.2)
[2020-09-21 05:39] LABS: Glucose,Whole Blood 282 mg/dL (75-99)
[2020-09-21 05:59] LABS: ABG Base Excess -6.1 mmol/L; ABG HCO3 19 mmol/L (21-25); ABG Oxygen Saturation 96.5 % (94-97); ABG PCO2 35 mmHg (35-45); ABG PH 7.36 (7.35-7.45); ABG PO2 86 mmHg (83-108); ABG TCO2 20 mmol/L (19-24); Allen Test Performed? Yes
--- NOTE | 2020-09-21 07:49 | XR ---
EXAMINATION TYPE: XR chest 1V portable DATE OF EXAM: 09/21/2020 COMPARISON: 09/20/2020 HISTORY: SOB, Follow Up FINDINGS: Indwelling tubes and catheters are unchanged. Diffuse bilateral airspace infiltrates persist unchanged. Small effusions noted. Stable appearance of the cardio-mediastinal structures at this time. Pleural effusion unchanged. IMPRESSION: 1. Stable portable chest. Clinical correlation and follow up until resolution is recommended.
[2020-09-21] MEDS: ALBUTEROL HFA INHALER INHALATION SCH ×4 (08:08→20:10)
[2020-09-21] MEDS: ZINC SULFATE 220 MG CAP PO SCH (08:24)
[2020-09-21] MEDS: SODIUM BICARBONATE TAB 650 MG TAB PO SCH ×3 (08:24→20:21)
[2020-09-21] MEDS: PANTOPRAZOLE 40 MG/10 ML VIAL IVP SCH (08:24)
[2020-09-21] MEDS: CHLORHEXIDINE GLUCONATE 15 ML CUP MUCOUS MEM SCH ×2 (08:24→20:21)
[2020-09-21] MEDS: DEXAMETHASONE SOD PHOSPHATE 10 MG/ML 1 ML VIAL IV SCH ×2 (08:25→20:21)
[2020-09-21] MEDS: CHOLECALCIFEROL 25 MCG (1000 IU) TABLET PO SCH (08:25)
[2020-09-21] MEDS: METOPROLOL TARTRATE 25 MG TAB PO SCH ×2 (08:26→20:21)
[2020-09-21] MEDS: ASCORBIC ACID 500 MG TAB PO SCH ×2 (08:26→20:21)
[2020-09-21] MEDS: ENOXAPARIN 60 MG/0.6 ML SYRINGE SQ SCH (08:26)
[2020-09-21] MEDS: SYMBICORT 160-4.5 MCG INHALER INHALATION SCH ×2 (08:47→20:52)
--- NOTE | 2020-09-21 10:00 | P.PN ---
Subjective Progress Note Date: 09/21/20 Principal diagnosis: Acute hypoxemic respiratory failure secondary COVID-19 pneumonia, DKA This is a 55-year-old -[place] female with history of type 2 diabetes, admitted today through the emergency room with a few days' history of increased shortness of breath, cough, fever, chest x-ray in the ER showed bilateral infiltrates consistent with COVID-19 pneumonia in the patient had positive PCR for COVID-19 infection. Patient had significantly abnormal labs on admission, she had an extremely low bicarb, extremely low pH, and marginal oxygenation at best. Patient was admitted to the regular medical floor, and I happened to be rounding on that same floor were and I was notified about this patient having worsening respiratory distress. Evaluated the patient, clearly the patient has DKA and she clearly has acute hypoxic respiratory failure secondary to COVID-19 pneumonia. As soon as I laid eyes on the patient, recommended immediate transfer to the ICU. Patient was placed on BiPAP however she did not tolerate BiPAP well, and when I went back to evaluate the patient in the ICU, she was basically deteriorating, and she was using her accessory muscles, patient was in severe respiratory distress. Hence I recommended immediate intubation and placement on mechanical ventilation. Chest x-ray continued to show bilateral infiltrates consistent with worsening COVID-19 pneumonia ABG showed a pO2 of 59 pCO2 of 42 pH of 7.05 and this was on the 100% FiO2 20 of PEEP tidal volume of 375 rate of 36. Patient will be given more bicarb and she is already on a bica rb drip. She is receiving insulin and she is also receiving IV fluids in the form of 0.9 normal saline. Sugars were 384. Inflammatory markers were added to be extremely high, LDH 2048, and C-reactive protein of 8.7. D-dimer was borderline elevated at 1.84. On 09/12/2020 patient seen in follow-up in the intensive care unit, yesterday she was emergently transferred to the intensive care and intubated and placed on mechanical ventilator. She remains intubated, sedated on mechanical ventilator, currently on assist control mode of ventilation with a rate 36, tidal vital 375, FiO2 100% and PEEP of 20. This might blood gas reveals pO2 of 62, pCO2 40, pH of 7.35 this was done on FiO2 of 80%, her peak airway pressure is 35, in her plateau pressure is around 32. she is sedated on Diprivan and 60 mics per kilo per minute, 0.9 normal saline at 100 ML per hour, insulin drip is at 4 units per hour, and she has 5% dextrose with 3 units of bicarbonate at 100 ML per hour. Today's labs have been reviewed, showing white blood cell count 10.3, hemoglobin of 14.4, d-dimer has increased to 14.31, and her Lovenox was adjusted and increased to 50 mg twice daily, sodium is 137, potassium is 3.7, chloride is 112, CO2 is up to 21, BUN of 16 creatinine is 1.57, LDH is 2618, CRP is 18.2. Pro-Calcitonin level came back elevated at 3.53, suggesting possibility of bacterial infection She received a liter bolus yesterday after intubation. We will give the patient additional fluid boluses today. Sputum culture has been sent and is pending, blood cultures have been sent. Patient has been placed in prone position at 8:00 last night, and her oxygenation seems to be improved and she satting 97% on 100% FiO2 and subsequently FiO2 was dropped down to 80%, and PEEP is down to 18. She remains in prone positioning, tolerating it well, she is having low-grade fevers, she is in sinus mechanism with tachycardic on the monitor, not requiring any vasopressor support right now, will start tube feedi ngs today when the patient is placed back over in the supine position On 09/13/2020 patient seen in follow-up in intensive care unit, she remains proned, and at the time of our evaluation patient has already been prone for close to 16 hours and is about to be turned back on her spine. She tolerates prone position quite well, she remains intubated, paralyzed and sedated on mechanical ventilator, current vent settings are assist-control mode of ventilation with a rate of 36, tidal volume 375, FiO2 of 70% and PEEP of 18, this point his blood gases show pO2 of 82, pCO2 of 39, and pH of 7.19. She's currently on D5 W with 3 A of bicarbonate at 75 per hour, Diprivan is a 60 mics per kilo per minute, index is at 2 mics per kilo per minute, and insulin drip is at 6 units per hour, patient has not started tube feedings yet. She is in sinus mechanism, hemodynamically stable, not requiring any vasopressor support. Today's chest x-ray has been reviewed showing bilateral lung infiltrates that a ppear to be stable. Today's labs have been reviewed showing white blood cell count of 11.1, hemoglobin 13.2, d-dimer is pending, yesterday his d-dimer was 14.3, patient's Lovenox dose was increased to 50 mg every 24 hours. Her renal function continued to worsen, and her creatinine is up to 3.4 on today's labs, BUN is 24, were bicarb concentration is only 13 on today's labs, sodium is 137, potassium is 4.0. AST is up to 77, ALT and alk phos are within normal limits, yesterday set him inflammatory markers with showing up trending LDH at 2618, and CRP of 18.2. Her pro-calcitonin level was increased yesterday at 3.53 and we added empiric antibiotics in the form of Zosyn. Sputum culture has been sent and has shown no growth. Overnight patient remained oliguric, yesterday we gave her additional fluids, however did not improve her renal function and her kidney function continued to get worse. Nephrology consultation has been requested, she has only been producing urine in the order of 5-10 ML per hour, renal ultrasound has been obtained showing no evidence of hydronephrosis bilaterally. On 09/14/2020 patient seen in follow-up in intensive care unit, she remains intubated, sedated and paralyzed, currently on assist control mode of ventilation with a rate of 36, tidal vital 375, FiO2 of 60% and PEEP of 18. This morning's blood gas was reviewed showing pO2 of 60, pCO2 of 43, and pH of 7.32. This was done on FiO2 of 70%, her peak airway pressure is 40, plateau pressures 26. She is currently on D5 with 3 A of bicarbonate at 100 ML per hour, insulin drip is at 7 units per hour, fentanyl drip is a 0.5 mics per kilo per hour, Diprivan and is at 50 mics per kilo per minute, and index is at 2 mics per kilo per minute. She is tolerating tube feedings of vital high-protein at 27 with a goal 27 standard water flushes. Today's chest x-ray has not been completed yet, because the patient has been in prone position for last 16 hours. Patient tolerates prone in quite well, and her oxygenation improves when she is in prone position. However when she is turned over in the supine position to complete chest x-rays and ADL's, patient's O2 sat drops down to low 80s and her FiO2 requirement increases at that time. Today's labs have been reviewed, and there has been further worsening of her renal function, and patient has made almost no urine overnight. Her BUN is 33, and creatinine is 4.87, nephrology is following, her renal ultrasound showed no evidence of hydronephrosis. Her urinalysis showed possibility of urinary tract infection, and patient has been started on cefepime. Urine culture is pending at this time, blood and sputum cultures have been negative. No fevers overnight, she's not requiring any vasopressor support. On 09/15/2020 patient seen in follow-up in intensive care unit, she remains intubated, sedated and paralyzed on assist-control mode of ventilation with a rate of 36, tidal vital 375, FiO2 100% and PEEP of 18, this morning's blood gas reviewed showing pO2 of 58, pCO2 of 45, and pH is 7.35, this was done on FiO2 of 100%. Her peak airway pressures 44, plateau pressures 38, she is on 0.9 normal saline at 50 ML per hour, Diprivan is a 40 mics per kilo per minute, Nimbex drip is a 2 mics per kilo per minute, and fentanyl drip at 0.5 mics per kilo per hour, she is tolerating tube feedings with vital high-protein is 27 with a goal of 27 standard water flushes. She is in sinus mechanism with a rate of 73, she is hemodynamically stable and not requiring any vasopressors. Today's chest x- ray shows ARDS, bilateral airspace opacities, no significant pleural effusion and no pneumothorax. Today's labs have been reviewed, white blood cell count is 9.9, hemoglobin is 11.3, sodium is 134, respiratory electrolytes were within normal limits, and there has been further worsening of her renal function with BUN of 34, creatinine is 4.78, her urine output has remained very poor. Last night she had her first hemodialysis session and no fluid was removed, this morning she is having another hemodialysis treatments and the goal is to remove half a liter of fluid. Her sputum, blood and urine cultures remained negative thus far, patient's pro-calcitonin level came back significantly elevated at 23.5 suggesting evidence of bacterial infection. Patient remains on cefepime for antibiotic coverage, she also remains on Decadron milligrams twice daily, and Lovenox is 50 mg every 24 hours. The patient is seen today 09/16/2020 in follow-up in the intensive care unit. She remains intubated on the mechanical ventilator. Current settings assist- control at a rate of 36, tidal volume 3 or 75, FiO2 100% and a PEEP of 18. Morning blood gases reveal a pO2 of 61, pCO2 49, pH 7.32. Peak pressures of 48, plateau pressure 43. Chest x-ray continues to show evidence of ARDS, pulmonary edema, diffuse pneumonia. She was not proned last night. The plan is to receive hemodialysis again today. Ultrasound of the chest did not reveal any si gnificant fluid for thoracentesis. Sedated on propofol at 50 mcg/kg/m, fentanyl at 0.5 mcg/kg per hour, Nimbex at 3 mcg/kg/m. Insulin drip at 4 units per hour. She is being nourished with vital HPI at 36 ML's per hour. 0.9 normal saline at 60 ML's per hour. Blood, sputum and urine cultures reveal no growth. White count 11.2. Hemoglobin 11.0. Sodium 134. Potassium 3.4. Creatinine 4.44. G lucose 164. She remains in sinus rhythm. She is continued on Symbicort, albuterol. Antibiotics in the form of cefepime. Remains on Decadron, Lovenox, vitamin supplements. On 09/18/2020 patient seen in follow-up in the intensive care unit. She remains intubated, sedated and paralyzed on mechanical ventilator on assist control mode with a rate of 36, tidal volume 375, FiO2 of 60% and PEEP of 20, this might blood gas shows pO2 of 72, pCO2 38, and pH is 7.35, today's chest x-ray still showing bilateral airspace disease possibly slightly improved compared yesterday's chest x-ray. Patient is currently on multiple drips including 0.9 normal saline at 20 no per hour, Nimbex is at 3 mics per kilo per minute, Diprivan is at 50 mics per kilo per minute, fentanyl drip is at 1 phil per kilo per hour, insulin drip is at 4 units per hour, she is on tube feedings with vital high-protein at a rate of 10 with a goal of 36 and standard water flushes. Patient has been getting hemodialysis treatments, her last treatment was on 09/16/2020 with removal of 1.2 L of fluid. Today's labs have been reviewed, showing white blood cell count of 12.6, hemoglobin of 9.8, last d-dimer from yesterday was 6.83, and patient remains on Lovenox and 50 mg daily, sodium was 133, potassium is 3.2, chloride is 102, CO2 is 21, BUN of 35, creatinine is 4.12. Her last set of inflammatory markers was from yesterday showing improvement although LDH was still elevated at 1913, and CRP was 1.3. She remains on IV Decadron 6 mg twice daily, she is also on cefepime for empiric antibiotic coverage, and so far all her cultures including sputum blood and urine are negative. Patient has been tolerating prone positioning well, and she has been prone up to 16-20 hours on a daily basis. On 09/19/2020 patient seen in follow-up in intensive care unit, she remains sedated, paralyzed and trached to the ventilator currently on assist control mode of ventilation with a rate of 36, tidal volume is 375, FiO2 of 60% and PEEP of 20. This morning's blood gases show pO2 of 85, pCO2 37, and pH of 7.33, and this was done and FiO2 of 60%. She is status post tracheostomy and PEG tube placement yesterday on 09/18/2020, she is currently in supine position, and that she is having hemodialysis treatment. Yesterday 2-1/2 L of fluid was removed with hemodialysis, the goal to remove another 2 L of fluid with today's hemodial ysis treatments, today's chest x-ray shows bilateral multifocal and confluent opacities consistent with COVID-19 infection, and some improved aeration at the periphery of the left lung but worsening opacities throughout the right lung compared to one day earlier. Patient is currently on 0.9 normal seen at 20 ML per hour, Nimbex is at 1.5 mics per kilo per minute, Diprivan is a 50 mics per kilo per minute, we will send is currently off, fentanyl drip is at 1 phil per kilo per hour, and insulin is at 5 units per hour, tube feedings are on hold and are expected to be restarted later on today. His labs have been reviewed showing white blood cell count of 14.3, hemoglobin of 9.6, d-dimer is relatively stable at 6.48, sodium is 130, potassium is 3.5, CO2 of 18, and renal profile shows some improvement with BUN of 34, and creatinine is 3.81. Her inflammatory markers are improving, LDH today is 1686, and CRP is 1.1. Her blood sputum and urine cultures have shown no growth to date. Patient continues on cefepime, current dose Lovenox is 15 mg once daily adjusted for her renal function, and she continues on Decadron 6 mg twice daily. The patient is seen today on 09/20/2020 in follow-up in the intensive care unit. She remains on the mechanical ventilator. Current settings assist-control 36, tidal 5 375, FiO2 50% and a PEEP of 20. Arterial blood gases revealed a PaO2 of 74, pCO2 37, pH 7.37. She remains on fentanyl at 1 mcg/kg per hour. Propofol at 50 g per kilogram per minute. Nimbex is off since yesterday. Insulin drip currently on hold. She normally is receiving vital HPI at 10 MLS per hour with a goal of 27. She is status post tracheostomy and PEG tube placements on 09/18/2020. The plan is for permacath placement today. Chest x-ray continues to show stable diffuse bilateral interstitial and airspace disease with a small right effusion. Blood urine and sputum cultures had revealed no growth. White count 14.5. Hemoglobin 9.1. D-dimer 6.13. Sodium 133. Potassium 3.1. Creatinine 4.27. Glucose 128. LDH 1717. C-reactive protein 1.7. She remains on Decadron, Lovenox, vitamin supplements. Continued on bronchodilators. The patient is seen today 09/21/2020 in follow-up in the intensive care unit. She remains on the mechanical ventilator. Assist-control rate of 36, tidal ventricle 75, FiO2 50% and a PEEP of 20. Morning blood gases reveal a pO2 of 86, pCO2 35, pH 7.36. She remains sedated on propofol at 40 mcg/kg/m. Fentanyl drip at 1 mg/kg per hour. 0.9 normal saline at 20 ML's per hour. She is being nourished with vital HPI 21 ML's per hour which is goal. White count 13.3. Hemoglobin 8.7. Sodium 137. Potassium 3.6. BUN 34. Creatinine 4.21. Glucose 283. She did receive a permacath to the right internal jugular vein yesterday. Continues with hemodialysis. 2.5 L removed yesterday. Chest x-ray continues to revealed diffuse bilateral airspace disease. Unchanged compared to previous. She remains on albuterol, Symbicort, Decadron. Lovenox for DVT prophylaxis. Objective - Vital Signs Vital signs: Vital Signs Temp 98 F 09/21/20 08:00 Pulse 68 09/21/20 08:00 Resp 18 09/21/20 08:00 BP 100/64 09/21/20 08:00 Pulse Ox 96 09/21/20 08:00 Intake & Output 09/20/20 09/21/20 09/21/20 18:59 06:59 18:59 Intake Total 828.758 956.330 23 Output Total 2505 0 Balance -1676.242 956.330 23 Weight 117.2 kg 121 kg Intake: IV 210 256 23 0.9 Normal Saline @ KVO 160 220 20 Pressure Bag 30 36 3 Intake, IV Titration 369.758 388.330 Amount fentaNYL (PF). 1,000 mcg 87.718 188.330 In Sodium Chloride 0.9% 80 ml @ Per Protocol IV . Q0M [facility] Rx#:[id number] propofoL 1,000 mg In 282.04 200 Empty Bag 1 bag @ Titrate IV .Q0M [facility] Rx#: [id number] Tube Feeding 189 252 Other 60 60 Output: Urine 5 0 Hemodialysis 2500 Other: Voiding Method Indwelling Catheter Indwelling Catheter Indwelling Catheter ABP, PAP, CO, CI - Last Documented Arterial Blood Pressure 127/63 - Exam GENERAL EXAM: Sedated, 35-year-old female patient, on assist control mode of ventilation with FiO2 50 percent and PEEP of 20, with a pulse ox of 96% comfortable in no apparent distress. HEAD: Normocephalic/atraumatic. EYES: Normal reaction of pupils, equal size. Conjunctiva pink, sclera white. NOSE: Clear with pink turbinates. THROAT: No erythema or exudates. NECK: Right internal jugular hemodialysis catheter placed. Tracheostomy tube secured in place. No masses, no JVD, no thyroid enlargement, no adenopathy. CHEST: No chest wall deformity. Symmetrical expansion. LUNGS: Equal air entry with bilateral crackles CVS: Regular rate and rhythm, normal S1 and S2, no gallops, no murmurs, no rubs ABDOMEN: PEG tube exit site clean and dry. No hepatosplenomegaly, normal bowel sounds, no guarding or rigidity. EXTREMITIES: No clubbing, no edema, no cyanosis, 2+ pulses and upper and lower extremities. MUSCULOSKELETAL: Muscle strength and tone normal. SPINE: No scoliosis or deformity SKIN: No rashes CENTRAL NERVOUS SYSTEM: Sedated. No focal deficits, tone is normal in all 4 extremities. - Labs CBC & Chem 7: 09/21/20 04:55 09/21/20 04:55 Labs: Abnormal Lab Results - Last 24 Hours (Table) 09/20/20 09/20/20 09/20/20 Range/Units 10:08 12:20 18:24 WBC (3.8-10.6) k/uL RBC (3.80-5.40) m/uL Hgb (11.4-16.0) gm/dL Hct (34.0-46.0) % Neutrophils # (1.3-7.7) k/uL ABG HCO3 (21-25) mmol/L Carbon Dioxide (22-30) mmol/L BUN (7-17) mg/dL Creatinine (0.52-1.04) mg/dL Glucose (74-99) mg/dL POC Glucose (mg/dL) 124 H 143 H 246 H (75-99) mg/dL Total Protein (6.3-8.2) g/dL Albumin (3.5-5.0) g/dL 09/21/20 09/21/20 09/21/20 Range/Units 00:25 04:55 04:55 WBC 13.3 H (3.8-10.6) k/uL RBC 3.03 L (3.80-5.40) m/uL Hgb 8.7 L (11.4-16.0) gm/dL Hct 25.7 L (34.0-46.0) % Neutrophils # 11.5 H (1.3-7.7) k/uL ABG HCO3 (21-25) mmol/L Carbon Dioxide 18 L (22-30) mmol/L BUN 34 H (7-17) mg/dL Creatinine 4.21 H (0.52-1.04) mg/dL Glucose 283 H (74-99) mg/dL POC Glucose (mg/dL) 269 H (75-99) mg/dL Total Protein 4.6 L (6.3-8.2) g/dL Albumin 2.2 L (3.5-5.0) g/dL 09/21/20 09/21/20 Range/Units 05:24 05:37 WBC (3.8-10.6) k/uL RBC (3.80-5.40) m/uL Hgb (11.4-16.0) gm/dL Hct (34.0-46.0) % Neutrophils # (1.3-7.7) k/uL ABG HCO3 19 L (21-25) mmol/L Carbon Dioxide (22-30) mmol/L BUN (7-17) mg/dL Creatinine (0.52-1.04) mg/dL Glucose (74-99) mg/dL POC Glucose (mg/dL) 282 H (75-99) mg/dL Total Protein (6.3-8.2) g/dL Albumin (3.5-5.0) g/dL Assessment and Plan Assessment: 1 Acute hypoxic respiratory failure secondary to COVID-19 pneumonia, trans ferred to the intensive care unit on 09/11/2020 and intubated and placed on mechanical ventilator on 09/11/2020. Patient received 1 dose of Remdesivir on 09/11/2020, however based on her quick progression of her hypoxic respiratory failure she received Tocilizumab 800 mg on 09/11/2020. Tracheostomy and PEG tube placed on 09/18/2020. 2 Acute kidney injury related to ATN, nephrology has been consulted, ultrasound of the kidneys showed no evidence of hydronephrosis. Patient was initiated on hemodialysis on 09/14/2020. Permacath placed 09/20/2020. 3 Acute diabetic ketoacidosis, resolved 4 Acute metabolic acidosis related to acute DKA, and acute kidney injury. Maintained on bicarbonate infusion 5 Increased d-dimer, related to COVID-19 pneumonia, currently on Lovenox 50 mg twice daily 6 Possible sepsis with increased pro-calcitonin suggesting presence of bacterial infection, cultures have been sent, patient has been started on Zosyn for empiric antibiotics coverage 7 Diabetes mellitus type 2 8 Morbid obesity with BMI 45.3 kg/m 9 Nonsmoker Plan: The patient was seen and evaluated by Dr. Issa Chest x-ray, ABGs and labs reviewed Decreased PEEP to 15 We will continue the current treatment plan Continue tube feedings as tolerated Continue hemodialysis We will continue to follow and make further recommendations based on her clinical status Critical care time 37 minutes I, the cosigning physician, performed a history & physical examination of the patient. Lungs sounds with crackles in the bilateral bases. Maintaining O2 saturations in the 80s low 90s on 50% FiO2 and a PEEP of 15 per the mechanical ventilator. I discussed the assessment and plan of care with my nurse practitioner, Kyara Concepcion. I attest to the above note as dictated by her.
--- NOTE | 2020-09-21 11:26 | P.PN ---
Subjective Progress Note Date: 09/21/20 Principal diagnosis: Acute kidney injury, hemodialysis placement Veronica was seen in the ICU. She is status post wire exchange for tunneled dialysis catheter. She had hemodialysis yesterday without any difficulty, and is currently undergoing hemodialysis. Objective - Vital Signs Vital signs: Vital Signs Temp 98 F 09/21/20 08:00 Pulse 68 09/21/20 08:00 Resp 18 09/21/20 08:00 BP 100/64 09/21/20 08:00 Pulse Ox 96 09/21/20 08:00 Intake & Output 09/20/20 09/21/20 09/21/20 18:59 06:59 18:59 Intake Total 828.758 956.330 23 Output Total 2505 0 Balance -1676.242 956.330 23 Weight 117.2 kg 121 kg Intake: IV 210 256 23 0.9 Normal Saline @ KVO 160 220 20 Pressure Bag 30 36 3 Intake, IV Titration 369.758 388.330 Amount fentaNYL (PF). 1,000 mcg 87.718 188.330 In Sodium Chloride 0.9% 80 ml @ Per Protocol IV . Q0M [facility] Rx#:[id number] propofoL 1,000 mg In 282.04 200 Empty Bag 1 bag @ Titrate IV .Q0M [facility] Rx#: [id number] Tube Feeding 189 252 Other 60 60 Output: Urine 5 0 Hemodialysis 2500 Other: Voiding Method Indwelling Catheter Indwelling Catheter Indwelling Catheter ABP, PAP, CO, CI - Last Documented Arterial Blood Pressure 127/63 - Exam General appearance: The patient is sedated on mechanical ventilation. HET: Head is normocephalic and atraumatic. Neck: Supple without lymphadenopathy. Trachea midline. Hemodialysis catheter clean, dry, and intact. Neurological: Patient is sedated on mechanical ventilation. - Labs CBC & Chem 7: 09/21/20 04:55 09/21/20 04:55 Labs: Abnormal Lab Results - Last 24 Hours (Table) 09/20/20 09/20/20 09/20/20 Range/Units 10:08 12:20 18:24 WBC (3.8-10.6) k/uL RBC (3.80-5.40) m/uL Hgb (11.4-16.0) gm/dL Hct (34.0-46.0) % Neutrophils # (1.3-7.7) k/uL ABG HCO3 (21-25) mmol/L Carbon Dioxide (22-30) mmol/L BUN (7-17) mg/dL Creatinine (0.52-1.04) mg/dL Glucose (74-99) mg/dL POC Glucose (mg/dL) 124 H 143 H 246 H (75-99) mg/dL Total Protein (6.3-8.2) g/dL Albumin (3.5-5.0) g/dL 09/21/20 09/21/20 09/21/20 Range/Units 00:25 04:55 04:55 WBC 13.3 H (3.8-10.6) k/uL RBC 3.03 L (3.80-5.40) m/uL Hgb 8.7 L (11.4-16.0) gm/dL Hct 25.7 L (34.0-46.0) % Neutrophils # 11.5 H (1.3-7.7) k/uL ABG HCO3 (21-25) mmol/L Carbon Dioxide 18 L (22-30) mmol/L BUN 34 H (7-17) mg/dL Creatinine 4.21 H (0.52-1.04) mg/dL Glucose 283 H (74-99) mg/dL POC Glucose (mg/dL) 269 H (75-99) mg/dL Total Protein 4.6 L (6.3-8.2) g/dL Albumin 2.2 L (3.5-5.0) g/dL 09/21/20 09/21/20 Range/Units 05:24 05:37 WBC (3.8-10.6) k/uL RBC (3.80-5.40) m/uL Hgb (11.4-16.0) gm/dL Hct (34.0-46.0) % Neutrophils # (1.3-7.7) k/uL ABG HCO3 19 L (21-25) mmol/L Carbon Dioxide (22-30) mmol/L BUN (7-17) mg/dL Creatinine (0.52-1.04) mg/dL Glucose (74-99) mg/dL POC Glucose (mg/dL) 282 H (75-99) mg/dL Total Protein (6.3-8.2) g/dL Albumin (3.5-5.0) g/dL Assessment and Plan Assessment: 1. Acute kidney injury status post tunneled right internal jugular vein hemodialysis catheter 2. COVID-19 pneumonitis 3. Acute respiratory hypoxia on mechanical ventilation 4. Diabetes mellitus Plan: Patient status post a wire exchange for right IJ tunneled catheter Continue ICU medical management Thank you for this consultation, we will sign off at this time The impression and plan of care has been dictated as directed. Dr Albarran I performed a history and examination of this patient, discussed the same with the dictator. I agree with the dictator's note ,documented as a scribe. Any additional findings or plans will be noted.
--- NOTE | 2020-09-21 11:45 | P.PN ---
Subjective Progress Note Date: 09/21/20 HISTORY OF PRESENT ILLNESS 35-year-old female patient of Dr. Arroyo with past medical history of type 2 diabetes comes in with acute shortness of breath associated with high light s ugars. Patient on admission was found to have a fever of 101.5 pulse rate 125 respiratory rate 20. Blood pressure 132/106. On chest x-ray obtained in the ER suggestive of bilateral infiltrates concerning for call with pneumonia. COVID PCR was positive. On admissions patient had an ABG with a pH of 7.14 pCO2 of 20, pO2 of 59, bicarb of 7. Patient's blood sugar on admission was 424 on assessment today patient's blood work patient had a sodium 135 potassium 5.4 chloride 123 bicarb less than 5 and creatinine 0.73. D-dimer was elevated on admission patient 9 28 patient given 1 L of IV fluids followed by normal saline running at 200 mL/h. Patient was positive for acetone on admission. She will anion gap closed and was switched to D5NS. Insulin drip was continued during the night and was switched to patient's home medication this morning. One dose of remdesiver was ordered. Apparently around noon, A- team was called on the patient secondary to hypoxia patient's oxygen saturation dropped to the 70s and 80s on 100% nonrebreather. Patient was switched to BiPAP on 18/12 and is doing better o FiO2 of 80%. ABG was obtained and ph was 7. 14 pCO2 of 28 bicarb of 7 pO2 of 17. Patient noted to have uncompensated metabolic acidosis with compensated respiratory alkalosis. Stat dose of 1 amp bicarb was given and followed by sodium bicarbonate drip. Insulin drip restarted. Patient's initiated on dexamethasone 6 mg IV twice a day. Potassium phosphate ordered as phosphorus is low. Patient's repeat blood gases suggest a pH of 7.25, CO2 32 pO2 of 72 bicarb 14. I will not normal saline at 100 mL/h as patient's anion gap has increased. Patient given 1 dose of 2 mg of morphine with improvement in respiratory rate. One dose of Ativan 0.5 mg was given. Xanax 0.25 twice a day along with Ativan 0.5 IV every 6 hours ordered for the patient. Vitals were evaluated patient pulse 129 [id number]. She was moved to the ICU. Precedex drip was initiated. Lopressor was initiated at 25 twice a day. Metoprolol tartrate 5 mg IV every 6 hours. Systolic blood pressure more than 160. Started chest x-ray was obtained and suggest stable bilateral consolidation suggestive of COVID-19 pneumonia. 09/12 patient is seen in the ICU is currently mechanically ventilated and sedated on vent settings of respiratory rate 36, tidal volume 375 FiO2 80% PEEP of 18.. Vital signs reviewed patient had a temp of 100.4 pulse 150 respiratory rate 36 oxygen saturation 95% on 80% on fio2 .'s labs are reviewed which patient had a d-dimer 1.84 that is increased to 14.3. Arterial Blood gas suggest ph 7.35, CO2 40, po2 62, . Her BMP suggest a sodium 135 potassium 3.7 chloride 112 bicarb 21 creatinine 1.57 for calcitonin is 3.5 CRP is increased from 8.78.2 LDH is increased to 2614. Patient remains on Pneumovax, propofol drip. Lovenox increased to 50 subcu twice a day. Patient received 2 L of IV fluids. Continue IV fluids at 100 mL/h. Bicarb drip discontinued patient initiated on Zosyn 3.375 every 8 hours. Continue insulin drip at 4 units per hour. Patient is currently in prone positioning 09/13: Patient evaluated in the ICU remains on Ventilation continues to be sedated, in prone position. Vent settings are respiratory rate 36, tidal vital 375, FiO2 70% PEEP of 18. ABG shows pO2 of 82, PCO2 of 39, pH is 7.19. Latest labs show WBC 11.1, hemoglobin 13.2, d-dimer still pending, but yesterday was up to 14.3. Creatinine up to 3.4, BUN 24 sodium 137, potassium 4.0. Patient's urine output has been low, nephrology on consult. Bicarb drip increased to 100 miles an hour, receiving another liter of normal saline, she did have a ultrasound that showed unremarkable bilateral kidneys. Repeat chest x-ray showed bilateral lung infiltrates that are stable. Anion gap has closed, will start Lantus 10 units at at bedtime Novolog every 6 hours. 09/14: Patient is seen in the ICU, still currently mechanically ventilated and sedated. She continues in the prone position. Her oxygen quickly drops if she is not in prone. Patient's kidney function has worsened. Laboratory values show creatinine of 4.87, BUN 33, LDH 2191, C-reactive protein 2.7. ABG shows pH 7.32, pO2 of 60, pCO2 43. Patient is making almost no urine overnight. Nephrology is following patient continues on cefepime for urinary tract infection, culture is still pending. Vascular has been consulted for placement of temporary hemodialysis catheter for plans for dialysis. 09/15: Patient evaluated in the ICU, continues to be mechanically ventilated and sedated on assist control ventilation rate of 36, tidal volume 375, FiO2 100% and PEEP of 18. ABG today shows pO2 58, pCO2 of 45, and pH 7.35. She continues on tube feedings. Yesterday patient underwent ultrasound-guided right internal jugular non-tunneled hemodialysis catheter placement. Patient underwent hemodialysis treatment last night and plans have another hemodialysis treatment today. She continues to make almost no urine. She continues on cefepime for antibiotic coverage, and continues on Decadron and Lovenox. 09/16: Patient seen on follow-up remains in the ICU mechanically ventilated and sedated. She continues on assist control rate of 36, tidal volume 375, FiO2 100% and PEEP of 20. PEEP had to be increased due to patient had to be in supine position for dialysis, will go back to prone position once dialysis is complete. ABG shows pH 7.32, pCO2 49, PaO2 61. Laboratory values showed WBC 11.2, hemoglobin 11, sodium 134, creatinine 4.44, BUN 38. Urine culture shows no growth, blood cultures show no growth to date. Repeat chest x-ray shows bilateral pleural effusions, correlate for ARDS, pulmonary edema, diffuse pneumonia, findings are stable from last exam. Patient does not require any pressors, blood pressure 133/57, heart rate 78. 5/16: Patient was evaluated in the ICU today for follow-up. She continues to be intubated and on mechanical ventilation. Current vent settings are tidal volume 375, FiO2 100% and PEEP of 20. ABG shows pH 7.37, pCO2 40, pO2 102. She continues with intermittent prone positioning. Patient continues to have almost no urine output, maintained on dialysis. Patient received dialysis yesterday without complication. Laboratory values revealed WBC 10.3, hemoglobin 10.4, sodium 132, potassium 3.1, BUN 33, creatinine 4.29, LDH 1913, C-reactive protein 1.3. Urine and sputum cultures are negative, blood cultures show no growth to date. Consult placed to dietary to start TPN[ ] 09/18: She remains in the intensive care unit intubated and on mechanical ventilation with tidal volume 375, FiO2 60 and PEEP of 20. Patient is being prone to daily at approximately 16 hours per day. Pulmonary medicine has added in Dr. Zhang to do PEG tube and trach today. Patient is not on vasopressors. Repeat blood work reveals WBC 12.6, hemoglobin 9.8, platelet count 212. Sodium 133, potassium 3.2, chloride 102, CO2 21, BUN 35 and creatinine 4.12. Blood sugar 126. Patient underwent hemodialysis yesterday with removal of 2 L and is scheduled again today with goal of 2-3 L and is scheduled again tomorrow. 09/19: She is scheduled for hemodialysis today and is off fentanyl temporarily. Patient is status post trach and PEG tube yesterday. And she remains on mechanical ventilation. Pulse ox 93-95%. She has been afebrile, heart rate 64, respiratory rate 36, blood pressure 115/50. Fentanyl is off to improve blood pressure for hemodialysis which is scheduled for today. Contacted vascular surgery about permanent hemodialysis catheter. Repeat blood work reveals WBC 14.3, hemoglobin 9.6, platelet count 200. D-dimer 6.48. LDH 1686. C-reactive protein 1.1. BUN 34 creatinine 3.81. Sodium 130, potassium 3.5, chloride 101, CO2 18. Blood sugars running between 101 198. Plan is to wean off Pneumovax today. Patient remains on insulin drip. Repeat chest x-ray reveals bilateral multifocal confluent opacities consistent with COVID-19. Some improved aeratio n periphery of the left lung and worsening opacities throughout the right lung. 09/20: She remains in the intensive care unit on mechanical ventilation. She has been afebrile, heart rate 65, respiratory rate 37, blood pressure 121/70, pulse ox 91-99%. Repeat blood work reveals WBC 14.5, hemoglobin 9.1, platelet count 216. D-dimer 6.13. Sodium 133, potassium 3.1, chloride 102, CO2 18, BUN 35 and creatinine 4.27. Blood sugars running between 128 and 143. LDH 1717. C- reactive protein 1.7. Patient remains on insulin drip which will be transitioned to NovoLog scale every 6 hours. Patient is scheduled for permanent hemodialysis catheter placement today with vascular surgery. Repeat chest x-ray reveals stable diffuse bilateral interstitial and airspace disease. Possible small right effusion. His work is following for transfer to [facility] care facility. Do not anticipate discharge until next week. 09/21: Patient is undergoing hemodialysis. She remains on mechanical ventilation with tidal volume 375, FiO2 down to 45 and PEEP was decreased to 15. Patient is continued on propofol, fentanyl drips. She is on tube feedings at goal. Patient was taken off insulin drip yesterday and on scale only but blood sugars are running in the 200s, Levemir scheduled at bedtime will be added. Other blood work reveals WBC 13.3, hemoglobin 8.7, platelet count 192. Sodium 137, potassium 3.6, chloride 107, CO2 18, BUN 34 and creatinine 4.21. Repeat chest x-ray is stable. REVIEW OF SYSTEMS Unable to obtain due to intubation. PHYSICAL EXAMINATION Gen: This is is a 35-year-old black female, patient is intubated and on mechanical ventilation, appears to be comfortable, undergoing dialysis. Full physical exam was deferred to dramatic coach due to Covid 19 and intubation. ASSESSMENT AND PLAN 1. Acute hypoxic respiratory failure secondary to Covid 19 pneumonia and possible bacterial pneumonia. Patient was intubated on September 11. She is status post 1 dose of Remdesivir and 1 dose of Tocilizumab. Continue Ventolin inhaler 4 times daily, Symbicort twice daily, Decadron 6 mg IV twice daily, Lovenox 50 mg subcu daily, supplements. Status post PEG tube and trach. 2. Acute diabetic ketoacidosis secondary to Covid 19 pneumonia. Insulin drip discontinued and patient placed on NovoLog scale along with Levemir 12 units at bedtime. 3. Metabolic encephalopathy secondary to Covid 19 and DKA. 4. Sepsis secondary to Covid 19 pneumonia. Continue as in #1. 5. Acute metabolic acidosis secondary to acute DKA, Covid 19 and acute kidney injury. 6. Diabetes mellitus type 2 uncontrolled with A1c 13.6. Start Levemir 12 units at bedtime and continue NovoLog scale every 6 hours. 7. Hypophosphatemia status post replacement. 8. Hyperkalemia secondary to DKA, resolved. 9. Sinus tachycardia secondary to sepsis, volume deficiency.Continue Lopressor 25 mg twice daily. 10. Acute kidney injury secondary to ATN secondary to Covid 19 and DKA. Patient continued on hemodialysis. Permanent dialysis catheter to be placed today with vascular surgeon. 11. Hypertension. 12. Morbid obesity with BMI of 53. 13. DVT prophylaxis. Lovenox. 14. GI prophylaxis. Protonix 40 mg IV push daily. CODE STATUS: Full code Prognosis guarded. Impression and plan of care have been directed as dictated by the signing physician. Kimberly Boswell nurse practitioner acting as scribe for signing physician. Objective - Vital Signs Vital signs: Vital Signs Temp 98 F 09/21/20 08:00 Pulse 68 09/21/20 08:00 Resp 18 09/21/20 08:00 BP 100/64 09/21/20 08:00 Pulse Ox 96 09/21/20 08:00 Intake & Output 09/20/20 09/21/20 09/21/20 18:59 06:59 18:59 Intake Total 828.758 956.330 23 Output Total 2505 0 Balance -1676.242 956.330 23 Weight 117.2 kg 121 kg Intake: IV 210 256 23 0.9 Normal Saline @ KVO 160 220 20 Pressure Bag 30 36 3 Intake, IV Titration 369.758 388.330 Amount fentaNYL (PF). 1,000 mcg 87.718 188.330 In Sodium Chloride 0.9% 80 ml @ Per Protocol IV . Q0M [facility] Rx#:[id number] propofoL 1,000 mg In 282.04 200 Empty Bag 1 bag @ Titrate IV .Q0M [facility] Rx#: [id number] Tube Feeding 189 252 Other 60 60 Output: Urine 5 0 Hemodialysis 2500 Other: Voiding Method Indwelling Catheter Indwelling Catheter Indwelling Catheter ABP, PAP, CO, CI - Last Documented Arterial Blood Pressure 127/63 - Labs CBC & Chem 7: 09/21/20 04:55 09/21/20 04:55 Labs: Abnormal Lab Results - Last 24 Hours (Table) 09/20/20 09/20/20 09/20/20 Range/Units 10:08 12:20 18:24 WBC (3.8-10.6) k/uL RBC (3.80-5.40) m/uL Hgb (11.4-16.0) gm/dL Hct (34.0-46.0) % Neutrophils # (1.3-7.7) k/uL ABG HCO3 (21-25) mmol/L Carbon Dioxide (22-30) mmol/L BUN (7-17) mg/dL Creatinine (0.52-1.04) mg/dL Glucose (74-99) mg/dL POC Glucose (mg/dL) 124 H 143 H 246 H (75-99) mg/dL Total Protein (6.3-8.2) g/dL Albumin (3.5-5.0) g/dL 09/21/20 09/21/20 09/21/20 Range/Units 00:25 04:55 04:55 WBC 13.3 H (3.8-10.6) k/uL RBC 3.03 L (3.80-5.40) m/uL Hgb 8.7 L (11.4-16.0) gm/dL Hct 25.7 L (34.0-46.0) % Neutrophils # 11.5 H (1.3-7.7) k/uL ABG HCO3 (21-25) mmol/L Carbon Dioxide 18 L (22-30) mmol/L BUN 34 H (7-17) mg/dL Creatinine 4.21 H (0.52-1.04) mg/dL Glucose 283 H (74-99) mg/dL POC Glucose (mg/dL) 269 H (75-99) mg/dL Total Protein 4.6 L (6.3-8.2) g/dL Albumin 2.2 L (3.5-5.0) g/dL 09/21/20 09/21/20 Range/Units 05:24 05:37 WBC (3.8-10.6) k/uL RBC (3.80-5.40) m/uL Hgb (11.4-16.0) gm/dL Hct (34.0-46.0) % Neutrophils # (1.3-7.7) k/uL ABG HCO3 19 L (21-25) mmol/L Carbon Dioxide (22-30) mmol/L BUN (7-17) mg/dL Creatinine (0.52-1.04) mg/dL Glucose (74-99) mg/dL POC Glucose (mg/dL) 282 H (75-99) mg/dL Total Protein (6.3-8.2) g/dL Albumin (3.5-5.0) g/dL
[2020-09-21 11:57] LABS: Glucose,Whole Blood 189 mg/dL (75-99)
--- NOTE | 2020-09-21 13:11 | PN ---
PROGRESS NOTE The patient is seen for followup for acute kidney injury currently dialysis dependent. She remains oliguric with urine output only 0-5 mL an hour. The patient was dialyzed yesterday. We had about 2.5 L. We will plan for dialysis again today. She is currently seen on dialysis. She is supine. Her FiO2 is down to 50% and PEEP has been decreased as well. Blood pressure is 100/64, heart rate 59 per minute. Patient is tolerating tube feeds. Case is discussed with nursing staff. She is not examined. LABS: Labs show sodium 137, potassium 3.6, chloride 107, CO2 is 18, BUN 34, creatinine 4.2. ASSESSMENT: 1. Acute kidney injury, oliguric renal failure, currently maintained on dialysis almost on a daily basis mostly for UF. 2. Metabolic acidosis maintained on sodium bicarb and being dialyzed. I will adjust the sodium bicarb bath on dialysis. 3. COVID pneumonia, currently on the vent. 4. Acute hypoxic respiratory failure, status post trach and PEG. 5. Volume overload, currently slowly improving. PLAN: Next dialysis will be on 09/23. I will hold off on dialysis tomorrow. Continue to monitor electrolytes and continue with the sodium bicarb for now. MMODL / IJN: [id number] /
--- NOTE | 2020-09-21 14:48 | P.PN ---
Subjective Progress Note Date: 09/21/20 CHIEF COMPLAINT: COVID-19 pneumonia HISTORY OF PRESENT ILLNESS: Patient is in the ICU for COVID-19 pneumonia and respiratory failure. She is status post tracheostomy and PEG tube placement with Dr. hollis. Patient is tolerating tube feedings. Patient remains intubated and sedated. She is status post permacath placement yesterday. And she is receiving hemodialysis. Afebrile. WBC 13.3 no bleeding reported around tracheostomy site Patient seen and examined with Dr. hollis PHYSICAL EXAM: VITAL SIGNS: Reviewed. GENERAL: Well-developed in no acute distress. HEENT: No sclera icterus. Extraocular movements grossly intact. Moist buccal mucosa. Head is atraumatic, normocephalic. Tracheostomy site clean dry and intact ABDOMEN: Soft. Nondistended. Nontender. PEG tube site clean dry and intact NEUROLOGIC: Sedated ASSESSMENT: 1. Acute hypoxic respiratory failure with prolonged mechanical ventilation due to COVID-19 pneumonia status post tracheostomy placement 2. Severe protein calorie malnutrition status post PEG tube placement PLAN: -Continue titrating tube feedings per dietitian recommendations -Continue supportive care -Continue ICU management Physician Sap Bpc Architect note has been reviewed by physician. Signing provider agrees with the documented findings, assessment, and plan of care. Objective - Vital Signs Vital signs: Vital Signs Temp 98.3 F 09/21/20 13:21 Pulse 54 L 09/21/20 12:00 Resp 20 09/21/20 13:21 BP 124/58 09/21/20 13:21 Pulse Ox 97 09/21/20 12:00 Intake & Output 09/20/20 09/21/20 09/21/20 18:59 06:59 18:59 Intake Total 508.533 2351.330 798.226 Output Total 2505 0 1415 Balance -8692.266 0787.330 -616.774 Weight 117.2 kg 121 kg Intake: IV 210 256 138 0.9 Normal Saline @ KVO 160 220 120 Pressure Bag 30 36 18 Intake, IV Titration 369.758 488.330 95.226 Amount fentaNYL (PF). 1,000 mcg 87.718 188.330 68.036 In Sodium Chloride 0.9% 80 ml @ Per Protocol IV . Q0M [facility] Rx#:[id number] propofoL 1,000 mg In 282.04 300 27.19 Empty Bag 1 bag @ Titrate IV .Q0M [facility] Rx#: [id number] Tube Feeding 189 252 105 Hemodialysis 400 Other 60 60 60 Output: Urine 5 0 15 Hemodialysis 2500 1400 Other: Voiding Method Indwelling Catheter Indwelling Catheter Indwelling Catheter ABP, PAP, CO, CI - Last Documented Arterial Blood Pressure 119/57 - Labs CBC & Chem 7: 09/21/20 04:55 09/21/20 04:55 Labs: Abnormal Lab Results - Last 24 Hours (Table) 09/20/20 09/21/20 09/21/20 Range/Units 18:24 00:25 04:55 WBC 13.3 H (3.8-10.6) k/uL RBC 3.03 L (3.80-5.40) m/uL Hgb 8.7 L (11.4-16.0) gm/dL Hct 25.7 L (34.0-46.0) % Neutrophils # 11.5 H (1.3-7.7) k/uL ABG HCO3 (21-25) mmol/L Carbon Dioxide (22-30) mmol/L BUN (7-17) mg/dL Creatinine (0.52-1.04) mg/dL Glucose (74-99) mg/dL POC Glucose (mg/dL) 246 H 269 H (75-99) mg/dL Total Protein (6.3-8.2) g/dL Albumin (3.5-5.0) g/dL 09/21/20 09/21/20 09/21/20 Range/Units 04:55 05:24 05:37 WBC (3.8-10.6) k/uL RBC (3.80-5.40) m/uL Hgb (11.4-16.0) gm/dL Hct (34.0-46.0) % Neutrophils # (1.3-7.7) k/uL ABG HCO3 19 L (21-25) mmol/L Carbon Dioxide 18 L (22-30) mmol/L BUN 34 H (7-17) mg/dL Creatinine 4.21 H (0.52-1.04) mg/dL Glucose 283 H (74-99) mg/dL POC Glucose (mg/dL) 282 H (75-99) mg/dL Total Protein 4.6 L (6.3-8.2) g/dL Albumin 2.2 L (3.5-5.0) g/dL 09/21/20 Range/Units 11:56 WBC (3.8-10.6) k/uL RBC (3.80-5.40) m/uL Hgb (11.4-16.0) gm/dL Hct (34.0-46.0) % Neutrophils # (1.3-7.7) k/uL ABG HCO3 (21-25) mmol/L Carbon Dioxide (22-30) mmol/L BUN (7-17) mg/dL Creatinine (0.52-1.04) mg/dL Glucose (74-99) mg/dL POC Glucose (mg/dL) 189 H (75-99) mg/dL Total Protein (6.3-8.2) g/dL Albumin (3.5-5.0) g/dL
[2020-09-21] MEDS: SODIUM CHLORIDE 0.9% 500 ML 500 ML IV SCH (17:47)
[2020-09-21 17:56] LABS: Glucose,Whole Blood 254 mg/dL (75-99)
[2020-09-21] MEDS: NOREPINEPHRINE 8 MG in SODIUM CHLORIDE 0.9% 250 ML IV SCH (19:55)
[2020-09-21 20:07] LABS: Glucose,Whole Blood 255 mg/dL (75-99)
[2020-09-21] MEDS: POTASSIUM BICARBONATE/CIT AC 20 MEQ TABLET.EFF NG-TUBE SCH ×2 (20:49→21:28)
[2020-09-21] MEDS ORDERED: INSULIN DETEMIR (LEVEMIR) 100 UNIT/ML SYR SQ SCH (21:00)
[2020-09-22] LABS: Glucose,Whole Blood 234 mg/dL (75-99)
[2020-09-22 04:17] LABS: Albumin 2.5 g/dL (3.5-5.0); Potassium 3.7 mmol/L (3.5-5.1); Total Bilirubin 0.3 mg/dL (0.2-1.3)
[2020-09-22 04:21] LABS: Basophils # (A) 0.1 k/uL (0-0.2); Basophils % (A) 1 %; Eosinophils # (A) 0.2 k/uL (0-0.7); Eosinophils % (A) 1 %; HCT 27.4 % (34.0-46.0); HGB 8.9 gm/dL (11.4-16.0); Lymphocytes # (A) 1.4 k/uL (1.0-4.8); Lymphocytes % (A) 9 %; MCH 27.4 pg (25.0-35.0); MCHC 32.6 g/dL (31.0-37.0); Mean Platelet Volume 10.9; Monocytes # (A) 0.7 k/uL (0-1.0); Monocytes % (A) 5 %; Neutrophils # (A) 13.9 k/uL (1.3-7.7); Neutrophils % (A) 84 %; Platelet Count 213 k/uL (150-450); Poikilocytosis Slight; RBC 3.26 m/uL (3.80-5.40); RDW 15.3 % (11.5-15.5); WBC 16.5 k/uL (3.8-10.6)
[2020-09-22 04:47] LABS: ABG Base Excess -3.2 mmol/L; ABG HCO3 21 mmol/L (21-25); ABG Oxygen Saturation 96.5 % (94-97); ABG PCO2 33 mmHg (35-45); ABG PH 7.42 (7.35-7.45); ABG PO2 81 mmHg (83-108); ABG TCO2 22 mmol/L (19-24)
[2020-09-22] MEDS ORDERED: POTASSIUM BICARBONATE/CIT AC 20 MEQ TABLET.EFF NG-TUBE SCH (05:00)
[2020-09-22 05:16] LABS: Allen Test Performed? no
[2020-09-22 06:13] LABS: Glucose,Whole Blood 324 mg/dL (75-99)
[2020-09-22] MEDS: INSULIN ASPART (NovoLOG) 100 UNIT/ML VIAL SQ SCH ×5 (06:14→23:45)
--- NOTE | 2020-09-22 07:47 | XR ---
EXAMINATION TYPE: XR chest 1V portable DATE OF EXAM: 09/22/2020 COMPARISON: 09/21/2020 HISTORY: SOB, Follow Up FINDINGS: Indwelling tubes and catheters are unchanged. Diffuse bilateral airspace infiltrates persist unchanged. Stable appearance of the cardio-mediastinal structures at this time. Pleural effusion unchanged. IMPRESSION: 1. Diffuse bilateral airspace infiltrates persist unchanged. Clinical correlation and follow up unt il resolution is recommended.
[2020-09-22] MEDS: SYMBICORT 160-4.5 MCG INHALER INHALATION SCH ×2 (08:11→19:44)
[2020-09-22] MEDS: ALBUTEROL HFA INHALER INHALATION SCH ×4 (08:11→19:44)
[2020-09-22] MEDS: ENOXAPARIN 60 MG/0.6 ML SYRINGE SQ SCH (08:51)
[2020-09-22] MEDS: CHLORHEXIDINE GLUCONATE 15 ML CUP MUCOUS MEM SCH ×2 (08:52→20:07)
[2020-09-22] MEDS: PANTOPRAZOLE 40 MG/10 ML VIAL IVP SCH (08:52)
[2020-09-22] MEDS: CHOLECALCIFEROL 25 MCG (1000 IU) TABLET PO SCH (08:52)
[2020-09-22] MEDS: DEXAMETHASONE SOD PHOSPHATE 10 MG/ML 1 ML VIAL IV SCH (08:53)
[2020-09-22] MEDS: ASCORBIC ACID 500 MG TAB PO SCH ×2 (08:53→20:07)
[2020-09-22] MEDS: SODIUM BICARBONATE TAB 650 MG TAB PO SCH ×3 (08:53→20:07)
[2020-09-22] MEDS: METOPROLOL TARTRATE 25 MG TAB PO SCH ×2 (08:53→20:07)
[2020-09-22] MEDS: ZINC SULFATE 220 MG CAP PO SCH (08:53)
--- NOTE | 2020-09-22 10:09 | P.PN ---
Subjective Progress Note Date: 09/22/20 Principal diagnosis: Acute hypoxemic respiratory failure secondary COVID-19 pneumonia, DKA This is a 55-year-old -[place] female with history of type 2 diabetes, admitted today through the emergency room with a few days' history of increased shortness of breath, cough, fever, chest x-ray in the ER showed bilateral infiltrates consistent with COVID-19 pneumonia in the patient had positive PCR for COVID-19 infection. Patient had significantly abnormal labs on admission, she had an extremely low bicarb, extremely low pH, and marginal oxygenation at best. Patient was admitted to the regular medical floor, and I happened to be rounding on that same floor were and I was notified about this patient having worsening respiratory distress. Evaluated the patient, clearly the patient has DKA and she clearly has acute hypoxic respiratory failure secondary to COVID-19 pneumonia. As soon as I laid eyes on the patient, recommended immediate transfer to the ICU. Patient was placed on BiPAP however she did not tolerate BiPAP well, and when I went back to evaluate the patient in the ICU, she was basically deteriorating, and she was using her accessory muscles, patient was in severe respiratory distress. Hence I recommended immediate intubation and placement on mechanical ventilation. Chest x-ray continued to show bilateral infiltrates consistent with worsening COVID-19 pneumonia ABG showed a pO2 of 59 pCO2 of 42 pH of 7.05 and this was on the 100% FiO2 20 of PEEP tidal volume of 375 rate of 36. Patient will be given more bicarb and she is already on a bica rb drip. She is receiving insulin and she is also receiving IV fluids in the form of 0.9 normal saline. Sugars were 384. Inflammatory markers were added to be extremely high, LDH 2048, and C-reactive protein of 8.7. D-dimer was borderline elevated at 1.84. On 09/12/2020 patient seen in follow-up in the intensive care unit, yesterday she was emergently transferred to the intensive care and intubated and placed on mechanical ventilator. She remains intubated, sedated on mechanical ventilator, currently on assist control mode of ventilation with a rate 36, tidal vital 375, FiO2 100% and PEEP of 20. This might blood gas reveals pO2 of 62, pCO2 40, pH of 7.35 this was done on FiO2 of 80%, her peak airway pressure is 35, in her plateau pressure is around 32. she is sedated on Diprivan and 60 mics per kilo per minute, 0.9 normal saline at 100 ML per hour, insulin drip is at 4 units per hour, and she has 5% dextrose with 3 units of bicarbonate at 100 ML per hour. Today's labs have been reviewed, showing white blood cell count 10.3, hemoglobin of 14.4, d-dimer has increased to 14.31, and her Lovenox was adjusted and increased to 50 mg twice daily, sodium is 137, potassium is 3.7, chloride is 112, CO2 is up to 21, BUN of 16 creatinine is 1.57, LDH is 2618, CRP is 18.2. Pro-Calcitonin level came back elevated at 3.53, suggesting possibility of bacterial infection She received a liter bolus yesterday after intubation. We will give the patient additional fluid boluses today. Sputum culture has been sent and is pending, blood cultures have been sent. Patient has been placed in prone position at 8:00 last night, and her oxygenation seems to be improved and she satting 97% on 100% FiO2 and subsequently FiO2 was dropped down to 80%, and PEEP is down to 18. She remains in prone positioning, tolerating it well, she is having low-grade fevers, she is in sinus mechanism with tachycardic on the monitor, not requiring any vasopressor support right now, will start tube feedi ngs today when the patient is placed back over in the supine position On 09/13/2020 patient seen in follow-up in intensive care unit, she remains proned, and at the time of our evaluation patient has already been prone for close to 16 hours and is about to be turned back on her spine. She tolerates prone position quite well, she remains intubated, paralyzed and sedated on mechanical ventilator, current vent settings are assist-control mode of ventilation with a rate of 36, tidal volume 375, FiO2 of 70% and PEEP of 18, this point his blood gases show pO2 of 82, pCO2 of 39, and pH of 7.19. She's currently on D5 W with 3 A of bicarbonate at 75 per hour, Diprivan is a 60 mics per kilo per minute, index is at 2 mics per kilo per minute, and insulin drip is at 6 units per hour, patient has not started tube feedings yet. She is in sinus mechanism, hemodynamically stable, not requiring any vasopressor support. Today's chest x-ray has been reviewed showing bilateral lung infiltrates that a ppear to be stable. Today's labs have been reviewed showing white blood cell count of 11.1, hemoglobin 13.2, d-dimer is pending, yesterday his d-dimer was 14.3, patient's Lovenox dose was increased to 50 mg every 24 hours. Her renal function continued to worsen, and her creatinine is up to 3.4 on today's labs, BUN is 24, were bicarb concentration is only 13 on today's labs, sodium is 137, potassium is 4.0. AST is up to 77, ALT and alk phos are within normal limits, yesterday set him inflammatory markers with showing up trending LDH at 2618, and CRP of 18.2. Her pro-calcitonin level was increased yesterday at 3.53 and we added empiric antibiotics in the form of Zosyn. Sputum culture has been sent and has shown no growth. Overnight patient remained oliguric, yesterday we gave her additional fluids, however did not improve her renal function and her kidney function continued to get worse. Nephrology consultation has been requested, she has only been producing urine in the order of 5-10 ML per hour, renal ultrasound has been obtained showing no evidence of hydronephrosis bilaterally. On 09/14/2020 patient seen in follow-up in intensive care unit, she remains intubated, sedated and paralyzed, currently on assist control mode of ventilation with a rate of 36, tidal vital 375, FiO2 of 60% and PEEP of 18. This morning's blood gas was reviewed showing pO2 of 60, pCO2 of 43, and pH of 7.32. This was done on FiO2 of 70%, her peak airway pressure is 40, plateau pressures 26. She is currently on D5 with 3 A of bicarbonate at 100 ML per hour, insulin drip is at 7 units per hour, fentanyl drip is a 0.5 mics per kilo per hour, Diprivan and is at 50 mics per kilo per minute, and index is at 2 mics per kilo per minute. She is tolerating tube feedings of vital high-protein at 27 with a goal 27 standard water flushes. Today's chest x-ray has not been completed yet, because the patient has been in prone position for last 16 hours. Patient tolerates prone in quite well, and her oxygenation improves when she is in prone position. However when she is turned over in the supine position to complete chest x-rays and ADL's, patient's O2 sat drops down to low 80s and her FiO2 requirement increases at that time. Today's labs have been reviewed, and there has been further worsening of her renal function, and patient has made almost no urine overnight. Her BUN is 33, and creatinine is 4.87, nephrology is following, her renal ultrasound showed no evidence of hydronephrosis. Her urinalysis showed possibility of urinary tract infection, and patient has been started on cefepime. Urine culture is pending at this time, blood and sputum cultures have been negative. No fevers overnight, she's not requiring any vasopressor support. On 09/15/2020 patient seen in follow-up in intensive care unit, she remains intubated, sedated and paralyzed on assist-control mode of ventilation with a rate of 36, tidal vital 375, FiO2 100% and PEEP of 18, this morning's blood gas reviewed showing pO2 of 58, pCO2 of 45, and pH is 7.35, this was done on FiO2 of 100%. Her peak airway pressures 44, plateau pressures 38, she is on 0.9 normal saline at 50 ML per hour, Diprivan is a 40 mics per kilo per minute, Nimbex drip is a 2 mics per kilo per minute, and fentanyl drip at 0.5 mics per kilo per hour, she is tolerating tube feedings with vital high-protein is 27 with a goal of 27 standard water flushes. She is in sinus mechanism with a rate of 73, she is hemodynamically stable and not requiring any vasopressors. Today's chest x- ray shows ARDS, bilateral airspace opacities, no significant pleural effusion and no pneumothorax. Today's labs have been reviewed, white blood cell count is 9.9, hemoglobin is 11.3, sodium is 134, respiratory electrolytes were within normal limits, and there has been further worsening of her renal function with BUN of 34, creatinine is 4.78, her urine output has remained very poor. Last night she had her first hemodialysis session and no fluid was removed, this morning she is having another hemodialysis treatments and the goal is to remove half a liter of fluid. Her sputum, blood and urine cultures remained negative thus far, patient's pro-calcitonin level came back significantly elevated at 23.5 suggesting evidence of bacterial infection. Patient remains on cefepime for antibiotic coverage, she also remains on Decadron milligrams twice daily, and Lovenox is 50 mg every 24 hours. The patient is seen today 09/16/2020 in follow-up in the intensive care unit. She remains intubated on the mechanical ventilator. Current settings assist- control at a rate of 36, tidal volume 3 or 75, FiO2 100% and a PEEP of 18. Morning blood gases reveal a pO2 of 61, pCO2 49, pH 7.32. Peak pressures of 48, plateau pressure 43. Chest x-ray continues to show evidence of ARDS, pulmonary edema, diffuse pneumonia. She was not proned last night. The plan is to receive hemodialysis again today. Ultrasound of the chest did not reveal any si gnificant fluid for thoracentesis. Sedated on propofol at 50 mcg/kg/m, fentanyl at 0.5 mcg/kg per hour, Nimbex at 3 mcg/kg/m. Insulin drip at 4 units per hour. She is being nourished with vital HPI at 36 ML's per hour. 0.9 normal saline at 60 ML's per hour. Blood, sputum and urine cultures reveal no growth. White count 11.2. Hemoglobin 11.0. Sodium 134. Potassium 3.4. Creatinine 4.44. G lucose 164. She remains in sinus rhythm. She is continued on Symbicort, albuterol. Antibiotics in the form of cefepime. Remains on Decadron, Lovenox, vitamin supplements. On 09/18/2020 patient seen in follow-up in the intensive care unit. She remains intubated, sedated and paralyzed on mechanical ventilator on assist control mode with a rate of 36, tidal volume 375, FiO2 of 60% and PEEP of 20, this might blood gas shows pO2 of 72, pCO2 38, and pH is 7.35, today's chest x-ray still showing bilateral airspace disease possibly slightly improved compared yesterday's chest x-ray. Patient is currently on multiple drips including 0.9 normal saline at 20 no per hour, Nimbex is at 3 mics per kilo per minute, Diprivan is at 50 mics per kilo per minute, fentanyl drip is at 1 phil per kilo per hour, insulin drip is at 4 units per hour, she is on tube feedings with vital high-protein at a rate of 10 with a goal of 36 and standard water flushes. Patient has been getting hemodialysis treatments, her last treatment was on 09/16/2020 with removal of 1.2 L of fluid. Today's labs have been reviewed, showing white blood cell count of 12.6, hemoglobin of 9.8, last d-dimer from yesterday was 6.83, and patient remains on Lovenox and 50 mg daily, sodium was 133, potassium is 3.2, chloride is 102, CO2 is 21, BUN of 35, creatinine is 4.12. Her last set of inflammatory markers was from yesterday showing improvement although LDH was still elevated at 1913, and CRP was 1.3. She remains on IV Decadron 6 mg twice daily, she is also on cefepime for empiric antibiotic coverage, and so far all her cultures including sputum blood and urine are negative. Patient has been tolerating prone positioning well, and she has been prone up to 16-20 hours on a daily basis. On 09/19/2020 patient seen in follow-up in intensive care unit, she remains sedated, paralyzed and trached to the ventilator currently on assist control mode of ventilation with a rate of 36, tidal volume is 375, FiO2 of 60% and PEEP of 20. This morning's blood gases show pO2 of 85, pCO2 37, and pH of 7.33, and this was done and FiO2 of 60%. She is status post tracheostomy and PEG tube placement yesterday on 09/18/2020, she is currently in supine position, and that she is having hemodialysis treatment. Yesterday 2-1/2 L of fluid was removed with hemodialysis, the goal to remove another 2 L of fluid with today's hemodial ysis treatments, today's chest x-ray shows bilateral multifocal and confluent opacities consistent with COVID-19 infection, and some improved aeration at the periphery of the left lung but worsening opacities throughout the right lung compared to one day earlier. Patient is currently on 0.9 normal seen at 20 ML per hour, Nimbex is at 1.5 mics per kilo per minute, Diprivan is a 50 mics per kilo per minute, we will send is currently off, fentanyl drip is at 1 pihl per kilo per hour, and insulin is at 5 units per hour, tube feedings are on hold and are expected to be restarted later on today. His labs have been reviewed showing white blood cell count of 14.3, hemoglobin of 9.6, d-dimer is relatively stable at 6.48, sodium is 130, potassium is 3.5, CO2 of 18, and renal profile shows some improvement with BUN of 34, and creatinine is 3.81. Her inflammatory markers are improving, LDH today is 1686, and CRP is 1.1. Her blood sputum and urine cultures have shown no growth to date. Patient continues on cefepime, current dose Lovenox is 15 mg once daily adjusted for her renal function, and she continues on Decadron 6 mg twice daily. The patient is seen today on 09/20/2020 in follow-up in the intensive care unit. She remains on the mechanical ventilator. Current settings assist-control 36, tidal 5 375, FiO2 50% and a PEEP of 20. Arterial blood gases revealed a PaO2 of 74, pCO2 37, pH 7.37. She remains on fentanyl at 1 mcg/kg per hour. Propofol at 50 g per kilogram per minute. Nimbex is off since yesterday. Insulin drip currently on hold. She normally is receiving vital HPI at 10 MLS per hour with a goal of 27. She is status post tracheostomy and PEG tube placements on 09/18/2020. The plan is for permacath placement today. Chest x-ray continues to show stable diffuse bilateral interstitial and airspace disease with a small right effusion. Blood urine and sputum cultures had revealed no growth. White count 14.5. Hemoglobin 9.1. D-dimer 6.13. Sodium 133. Potassium 3.1. Creatinine 4.27. Glucose 128. LDH 1717. C-reactive protein 1.7. She remains on Decadron, Lovenox, vitamin supplements. Continued on bronchodilators. The patient is seen today 09/21/2020 in follow-up in the intensive care unit. She remains on the mechanical ventilator. Assist-control rate of 36, tidal ventricle 75, FiO2 50% and a PEEP of 20. Morning blood gases reveal a pO2 of 86, pCO2 35, pH 7.36. She remains sedated on propofol at 40 mcg/kg/m. Fentanyl drip at 1 mg/kg per hour. 0.9 normal saline at 20 ML's per hour. She is being nourished with vital HPI 21 ML's per hour which is goal. White count 13.3. Hemoglobin 8.7. Sodium 137. Potassium 3.6. BUN 34. Creatinine 4.21. Glucose 283. She did receive a permacath to the right internal jugular vein yesterday. Continues with hemodialysis. 2.5 L removed yesterday. Chest x-ray continues to revealed diffuse bilateral airspace disease. Unchanged compared to previous. She remains on albuterol, Symbicort, Decadron. Lovenox for DVT prophylaxis. The patient is seen today 09/22/2020 in follow-up in the intensive care unit. She remains on the mechanical ventilator. Current settings are assist-control mode at a rate of 36, tidal volume 375, FiO2 50% and a PEEP of 15. Morning blood gases reveal pO2 81, pCO2 33, pH 7.42. She remains sedated on propofol at 20 mcg/kg/m. Fentanyl at 0.5 mcg/kg per hour. 0.9 normal saline at 20 ML's per hour. She is being nourished with vital HP 21 mL per hour which is goal. Chest x-ray reveals diffuse bilateral airspace disease. Unchanged compared to previous. White count 16.5. Hemoglobin 8.9. Platelets 213. Sodium 134. Potassium 3.7. BUN 34. Creatinine 3.89. Glucose 286. No plans for dialysis today. She is continued on Decadron, Lovenox, vitamin supplements. Objective - Vital Signs Vital signs: Vital Signs Temp 98.4 F 09/22/20 04:00 Pulse 59 L 09/22/20 07:00 Resp 36 H 09/22/20 07:00 BP 100/64 09/21/20 23:00 Pulse Ox 99 09/22/20 07:00 Intake & Output 09/21/20 09/22/20 09/22/20 18:59 06:59 18:59 Intake Total 1251.036 899.992 Output Total 1415 5 Balance -163.964 894.992 Weight 119.975 kg Intake: IV 299 276 0.9 Normal Saline @ KVO 260 240 Pressure Bag 39 36 Intake, IV Titration 168.036 290.992 Amount fentaNYL (PF). 1,000 mcg 68.036 100.000 In Sodium Chloride 0.9% 80 ml @ Per Protocol IV . Q0M [facility] Rx#:[id number] propofoL 1,000 mg In 100.00 190.992 Empty Bag 1 bag @ Titrate IV .Q0M [facility] Rx#: [id number] Tube Feeding 294 273 Hemodialysis 400 Other 90 60 Output: Urine 15 5 Hemodialysis 1400 Other: Voiding Method Indwelling Catheter Indwelling Catheter ABP, PAP, CO, CI - Last Documented Arterial Blood Pressure 153/69 - Exam GENERAL EXAM: Sedated, 35-year-old female patient, on assist control mode of ventilation with FiO2 50 percent and PEEP of 15, with a pulse ox of 99% co mfortable in no apparent distress. HEAD: Normocephalic/atraumatic. EYES: Normal reaction of pupils, equal size. Conjunctiva pink, sclera white. NOSE: Clear with pink turbinates. THROAT: No erythema or exudates. NECK: Right internal jugular hemodialysis catheter placed. Tracheostomy tube secured in place. No masses, no JVD, no thyroid enlargement, no adenopathy. CHEST: No chest wall deformity. Symmetrical expansion. LUNGS: Equal air entry with bilateral crackles CVS: Regular rate and rhythm, normal S1 and S2, no gallops, no murmurs, no rubs ABDOMEN: PEG tube exit site clean and dry. No hepatosplenomegaly, normal bowel sounds, no guarding or rigidity. EXTREMITIES: No clubbing, no edema, no cyanosis, 2+ pulses and upper and lower extremities. MUSCULOSKELETAL: Muscle strength and tone normal. SPINE: No scoliosis or deformity SKIN: No rashes CENTRAL NERVOUS SYSTEM: Sedated. No focal deficits, tone is normal in all 4 extremities. - Labs CBC & Chem 7: 09/22/20 03:15 09/22/20 03:15 Labs: Abnormal Lab Results - Last 24 Hours (Table) 09/21/20 09/21/20 09/21/20 Range/Units 11:56 17:55 19:56 WBC (3.8-10.6) k/uL RBC (3.80-5.40) m/uL Hgb (11.4-16.0) gm/dL Hct (34.0-46.0) % Neutrophils # (1.3-7.7) k/uL ABG pCO2 (35-45) mmHg ABG pO2 (83-108) mmHg Sodium (137-145) mmol/L Potassium 3.0 L (3.5-5.1) mmol/L Carbon Dioxide (22-30) mmol/L BUN (7-17) mg/dL Creatinine (0.52-1.04) mg/dL Glucose (74-99) mg/dL POC Glucose (mg/dL) 189 H 254 H (75-99) mg/dL Total Protein (6.3-8.2) g/dL Albumin (3.5-5.0) g/dL 09/21/20 09/21/20 09/22/20 Range/Units 20:05 23:58 03:15 WBC 16.5 H (3.8-10.6) k/uL RBC 3.26 L (3.80-5.40) m/uL Hgb 8.9 L (11.4-16.0) gm/dL Hct 27.4 L (34.0-46.0) % Neutrophils # 13.9 H (1.3-7.7) k/uL ABG pCO2 (35-45) mmHg ABG pO2 (83-108) mmHg Sodium (137-145) mmol/L Potassium (3.5-5.1) mmol/L Carbon Dioxide (22-30) mmol/L BUN (7-17) mg/dL Creatinine (0.52-1.04) mg/dL Glucose (74-99) mg/dL POC Glucose (mg/dL) 255 H 234 H (75-99) mg/dL Total Protein (6.3-8.2) g/dL Albumin (3.5-5.0) g/dL 09/22/20 09/22/20 09/22/20 Range/Units 03:15 04:45 06:12 WBC (3.8-10.6) k/uL RBC (3.80-5.40) m/uL Hgb (11.4-16.0) gm/dL Hct (34.0-46.0) % Neutrophils # (1.3-7.7) k/uL ABG pCO2 33 L (35-45) mmHg ABG pO2 81 L (83-108) mmHg Sodium 134 L (137-145) mmol/L Potassium (3.5-5.1) mmol/L Carbon Dioxide 21 L (22-30) mmol/L BUN 34 H (7-17) mg/dL Creatinine 3.89 H (0.52-1.04) mg/dL Glucose 286 H (74-99) mg/dL POC Glucose (mg/dL) 324 H (75-99) mg/dL Total Protein 5.0 L (6.3-8.2) g/dL Albumin 2.5 L (3.5-5.0) g/dL Assessment and Plan Assessment: 1 Acute hypoxic respiratory failure secondary to COVID-19 pneumonia, transferred to the intensive care unit on 09/11/2020 and intubated and placed on mechanical ventilator on 09/11/2020. Patient received 1 dose of Remdesivir on 09/11/2020, however based on her quick progression of her hypoxic respiratory failure she received Tocilizumab 800 mg on 09/11/2020. Tracheostomy and PEG tube placed on 09/18/2020. 2 Acute kidney injury related to ATN, nephrology has been consulted, ultrasound of the kidneys showed no evidence of hydronephrosis. Patient was initiated on hemodialysis on 09/14/2020. Permacath placed 09/20/2020. 3 Acute diabetic ketoacidosis, resolved 4 Acute metabolic acidosis related to acute DKA, and acute kidney injury. Maintained on bicarbonate infusion 5 Increased d-dimer, related to COVID-19 pneumonia, currently on Lovenox 50 mg daily 6 Possible sepsis with increased pro-calcitonin suggesting presence of bacterial infection, cultures have been sent and all negative 7 Diabetes mellitus type 2 8 Morbid obesity with BMI 45.3 kg/m 9 Nonsmoker Plan: The patient was seen and evaluated by Dr. Issa Chest x-ray, ABGs and labs reviewed Her saturations are improving Decreased PEEP to 10 Currently on Lovenox 50 mg daily, check d-dimer Decrease Decadron to daily Continue tube feedings as tolerated Continue hemodialysis per nephrology, no HD today Continue daily interruption of sedation We will continue to follow and make further recommendations based on her clinical status Critical care time 35 minutes I, the cosigning physician, performed a history & physical examination of the patient. Lungs sounds with crackles in the bilateral bases. Maintaining O2 saturations in the 90s on 50% FiO2 and a PEEP of 10 per the mechanical ventilator. I discussed the assessment and plan of care with my nurse practitioner, Kyara Concepcion. I attest to the above note as dictated by her.
--- NOTE | 2020-09-22 11:08 | PN ---
PROGRESS NOTE Patient is seen for followup for acute kidney injury, currently dialysis dependent. She has oliguric renal failure with no significant urine output. The patient had severe volume overload and was maintained on a daily dialysis. She started dialysis on 09/14/2020. We are going to hold off on dialysis today and plan for a treatment again tomorrow. Her FiO2 has improved and it is down to 50% now. PEEP is also being decreased. Patient is status post trach and PEG. She has not required any more pronation. PHYSICAL EXAMINATION: On examination, vital signs are reviewed. Blood pressure 153/69, heart rate 59 per minute. She is afebrile. Case is discussed with nursing staff. Patient is not examined. Her edema is improving. She is tolerating tube feeds. Patient remains sedated. LABS: Labs show sodium 134, potassium 3.7, chloride 103, BUN 34, creatinine 3.89, hemoglobin 8.9 g/dL. ASSESSMENT: 1. Acute kidney injury oliguric renal failure secondary to acute tubular necrosis from sepsis and COVID pneumonia, currently dialysis dependent. Patient was being dialyzed daily mostly for volume overload and poor oxygenation. Her volume status has improved. We will hold off on dialysis today and plan for a treatment again tomorrow. 2. Volume overload currently improved, UF of about 11 L over the past 6 days. 3. COVID pneumonia. 4. Acute hypoxic respiratory failure secondary to COVID pneumonia currently status post trach and PEG. 5. Hypokalemia, status post replacement. PLAN: Hemodialysis in a.m. [facility]MBLAINE / PEPITO: [id number] /
--- NOTE | 2020-09-22 11:38 | P.PN ---
Subjective Progress Note Date: 09/22/20 HISTORY OF PRESENT ILLNESS 35-year-old female patient of Dr. Arroyo with past medical history of type 2 diabetes comes in with acute shortness of breath associated with high light s ugars. Patient on admission was found to have a fever of 101.5 pulse rate 125 respiratory rate 20. Blood pressure 132/106. On chest x-ray obtained in the ER suggestive of bilateral infiltrates concerning for call with pneumonia. COVID PCR was positive. On admissions patient had an ABG with a pH of 7.14 pCO2 of 20, pO2 of 59, bicarb of 7. Patient's blood sugar on admission was 424 on assessment today patient's blood work patient had a sodium 135 potassium 5.4 chloride 123 bicarb less than 5 and creatinine 0.73. D-dimer was elevated on admission patient 9 28 patient given 1 L of IV fluids followed by normal saline running at 200 mL/h. Patient was positive for acetone on admission. She will anion gap closed and was switched to D5NS. Insulin drip was continued during the night and was switched to patient's home medication this morning. One dose of remdesiver was ordered. Apparently around noon, A- team was called on the patient secondary to hypoxia patient's oxygen saturation dropped to the 70s and 80s on 100% nonrebreather. Patient was switched to BiPAP on 18/12 and is doing better o FiO2 of 80%. ABG was obtained and ph was 7. 14 pCO2 of 28 bicarb of 7 pO2 of 17. Patient noted to have uncompensated metabolic acidosis with compensated respiratory alkalosis. Stat dose of 1 amp bicarb was given and followed by sodium bicarbonate drip. Insulin drip restarted. Patient's initiated on dexamethasone 6 mg IV twice a day. Potassium phosphate ordered as phosphorus is low. Patient's repeat blood gases suggest a pH of 7.25, CO2 32 pO2 of 72 bicarb 14. I will not normal saline at 100 mL/h as patient's anion gap has increased. Patient given 1 dose of 2 mg of morphine with improvement in respiratory rate. One dose of Ativan 0.5 mg was given. Xanax 0.25 twice a day along with Ativan 0.5 IV every 6 hours ordered for the patient. Vitals were evaluated patient pulse 129 [id number]. She was moved to the ICU. Precedex drip was initiated. Lopressor was initiated at 25 twice a day. Metoprolol tartrate 5 mg IV every 6 hours. Systolic blood pressure more than 160. Started chest x-ray was obtained and suggest stable bilateral consolidation suggestive of COVID-19 pneumonia. 09/12 patient is seen in the ICU is currently mechanically ventilated and sedated on vent settings of respiratory rate 36, tidal volume 375 FiO2 80% PEEP of 18.. Vital signs reviewed patient had a temp of 100.4 pulse 150 respiratory rate 36 oxygen saturation 95% on 80% on fio2 .'s labs are reviewed which patient had a d-dimer 1.84 that is increased to 14.3. Arterial Blood gas suggest ph 7.35, CO2 40, po2 62, . Her BMP suggest a sodium 135 potassium 3.7 chloride 112 bicarb 21 creatinine 1.57 for calcitonin is 3.5 CRP is increased from 8.78.2 LDH is increased to 2614. Patient remains on Pneumovax, propofol drip. Lovenox increased to 50 subcu twice a day. Patient received 2 L of IV fluids. Continue IV fluids at 100 mL/h. Bicarb drip discontinued patient initiated on Zosyn 3.375 every 8 hours. Continue insulin drip at 4 units per hour. Patient is currently in prone positioning 09/13: Patient evaluated in the ICU remains on Ventilation continues to be sedated, in prone position. Vent settings are respiratory rate 36, tidal vital 375, FiO2 70% PEEP of 18. ABG shows pO2 of 82, PCO2 of 39, pH is 7.19. Latest labs show WBC 11.1, hemoglobin 13.2, d-dimer still pending, but yesterday was up to 14.3. Creatinine up to 3.4, BUN 24 sodium 137, potassium 4.0. Patient's urine output has been low, nephrology on consult. Bicarb drip increased to 100 miles an hour, receiving another liter of normal saline, she did have a ultrasound that showed unremarkable bilateral kidneys. Repeat chest x-ray showed bilateral lung infiltrates that are stable. Anion gap has closed, will start Lantus 10 units at at bedtime Novolog every 6 hours. 09/14: Patient is seen in the ICU, still currently mechanically ventilated and sedated. She continues in the prone position. Her oxygen quickly drops if she is not in prone. Patient's kidney function has worsened. Laboratory values show creatinine of 4.87, BUN 33, LDH 2191, C-reactive protein 2.7. ABG shows pH 7.32, pO2 of 60, pCO2 43. Patient is making almost no urine overnight. Nephrology is following patient continues on cefepime for urinary tract infection, culture is still pending. Vascular has been consulted for placement of temporary hemodialysis catheter for plans for dialysis. 09/15: Patient evaluated in the ICU, continues to be mechanically ventilated and sedated on assist control ventilation rate of 36, tidal volume 375, FiO2 100% and PEEP of 18. ABG today shows pO2 58, pCO2 of 45, and pH 7.35. She continues on tube feedings. Yesterday patient underwent ultrasound-guided right internal jugular non-tunneled hemodialysis catheter placement. Patient underwent hemodialysis treatment last night and plans have another hemodialysis treatment today. She continues to make almost no urine. She continues on cefepime for antibiotic coverage, and continues on Decadron and Lovenox. 09/16: Patient seen on follow-up remains in the ICU mechanically ventilated and sedated. She continues on assist control rate of 36, tidal volume 375, FiO2 100% and PEEP of 20. PEEP had to be increased due to patient had to be in supine position for dialysis, will go back to prone position once dialysis is complete. ABG shows pH 7.32, pCO2 49, PaO2 61. Laboratory values showed WBC 11.2, hemoglobin 11, sodium 134, creatinine 4.44, BUN 38. Urine culture shows no growth, blood cultures show no growth to date. Repeat chest x-ray shows bilateral pleural effusions, correlate for ARDS, pulmonary edema, diffuse pneumonia, findings are stable from last exam. Patient does not require any pressors, blood pressure 133/57, heart rate 78. 5/16: Patient was evaluated in the ICU today for follow-up. She continues to be intubated and on mechanical ventilation. Current vent settings are tidal volume 375, FiO2 100% and PEEP of 20. ABG shows pH 7.37, pCO2 40, pO2 102. She continues with intermittent prone positioning. Patient continues to have almost no urine output, maintained on dialysis. Patient received dialysis yesterday without complication. Laboratory values revealed WBC 10.3, hemoglobin 10.4, sodium 132, potassium 3.1, BUN 33, creatinine 4.29, LDH 1913, C-reactive protein 1.3. Urine and sputum cultures are negative, blood cultures show no growth to date. Consult placed to dietary to start TPN[ ] 09/18: She remains in the intensive care unit intubated and on mechanical ventilation with tidal volume 375, FiO2 60 and PEEP of 20. Patient is being prone to daily at approximately 16 hours per day. Pulmonary medicine has added in Dr. Zhang to do PEG tube and trach today. Patient is not on vasopressors. Repeat blood work reveals WBC 12.6, hemoglobin 9.8, platelet count 212. Sodium 133, potassium 3.2, chloride 102, CO2 21, BUN 35 and creatinine 4.12. Blood sugar 126. Patient underwent hemodialysis yesterday with removal of 2 L and is scheduled again today with goal of 2-3 L and is scheduled again tomorrow. 09/19: She is scheduled for hemodialysis today and is off fentanyl temporarily. Patient is status post trach and PEG tube yesterday. And she remains on mechanical ventilation. Pulse ox 93-95%. She has been afebrile, heart rate 64, respiratory rate 36, blood pressure 115/50. Fentanyl is off to improve blood pressure for hemodialysis which is scheduled for today. Contacted vascular surgery about permanent hemodialysis catheter. Repeat blood work reveals WBC 14.3, hemoglobin 9.6, platelet count 200. D-dimer 6.48. LDH 1686. C-reactive protein 1.1. BUN 34 creatinine 3.81. Sodium 130, potassium 3.5, chloride 101, CO2 18. Blood sugars running between 101 198. Plan is to wean off Pneumovax today. Patient remains on insulin drip. Repeat chest x-ray reveals bilateral multifocal confluent opacities consistent with COVID-19. Some improved aeratio n periphery of the left lung and worsening opacities throughout the right lung. 09/20: She remains in the intensive care unit on mechanical ventilation. She has been afebrile, heart rate 65, respiratory rate 37, blood pressure 121/70, pulse ox 91-99%. Repeat blood work reveals WBC 14.5, hemoglobin 9.1, platelet count 216. D-dimer 6.13. Sodium 133, potassium 3.1, chloride 102, CO2 18, BUN 35 and creatinine 4.27. Blood sugars running between 128 and 143. LDH 1717. C- reactive protein 1.7. Patient remains on insulin drip which will be transitioned to NovoLog scale every 6 hours. Patient is scheduled for permanent hemodialysis catheter placement today with vascular surgery. Repeat chest x-ray reveals stable diffuse bilateral interstitial and airspace disease. Possible small right effusion. His work is following for transfer to alf care facility. Do not anticipate discharge until next week. 09/21: Patient is undergoing hemodialysis. She remains on mechanical ventilation with tidal volume 375, FiO2 down to 45 and PEEP was decreased to 15. Patient is continued on propofol, fentanyl drips. She is on tube feedings at goal. Patient was taken off insulin drip yesterday and on scale only but blood sugars are running in the 200s, Levemir scheduled at bedtime will be added. Other blood work reveals WBC 13.3, hemoglobin 8.7, platelet count 192. Sodium 137, potassium 3.6, chloride 107, CO2 18, BUN 34 and creatinine 4.21. Repeat chest x-ray is stable. 09/22: She remains in the intensive care on mechanical ventilation with tidal volume 375, FiO2 of 50 and PEEP of 10. Pulse ox is running 96%. She is afebrile, heart rate in the 50s, respiratory rate 36, blood pressure 100/64. Repeat blood work reveals WBC 16.5, hemoglobin 8.9, platelet count 213. Sodium 134, potassium 3.7, chloride 103, CO2 21, BUN 34 and creatinine 3.89. Blood sugars running in the 200s to 324. Levemir increased to 16 units at bedtime and continue NovoLog scale every 6 hours. Patient is on tube feedings at goal. She has a Haley catheter in with a scant amount of dark/brown urine. Fecal management system is in place. Repeat chest x-ray reveals diffuse bilateral airspace infiltrates persist unchanged. Patient is scheduled for hemodialysis tomorrow morning on Friday. REVIEW OF SYSTEMS Unable to obtain due to intubation. PHYSICAL EXAMINATION Gen: This is is a 35-year-old black female, patient is intubated and on mechanical ventilation, appears to be comfortable, undergoing dialysis. Full physical exam was deferred to marketing trainee due to Covid 19 and intubation. ASSESSMENT AND PLAN 1. Acute hypoxic respiratory failure secondary to Covid 19 pneumonia and possible bacterial pneumonia. Patient was intubated on September 11. She is status post 1 dose of Remdesivir and 1 dose of Tocilizumab. Continue Ventolin inhaler 4 times daily, Symbicort twice daily, Decadron 6 mg IV twice daily, Lovenox 50 mg subcu daily, supplements. Status post PEG tube and trach. 2. Acute diabetic ketoacidosis secondary to Covid 19 pneumonia. Continue Levemir increased to 16 units at bedtime, continue NovoLog scale every 6 hours. 3. Metabolic encephalopathy secondary to Covid 19 and DKA. 4. Sepsis secondary to Covid 19 pneumonia. Continue as in #1. 5. Acute metabolic acidosis secondary to acute DKA, Covid 19 and acute kidney injury. 6. Diabetes mellitus type 2 uncontrolled with A1c 13.6. Continue Levemir and NovoLog scale every 6 hours. 7. Hypophosphatemia status post replacement. 8. Hyperkalemia secondary to DKA, resolved. 9. Sinus tachycardia secondary to sepsis, volume deficiency.Continue Lopressor 25 mg twice daily. 10. Acute kidney injury secondary to ATN secondary to Covid 19 and DKA. Patient continued on hemodialysis. Permanent dialysis catheter to be placed. 11. Hypertension. 12. Morbid obesity with BMI of 53. 13. DVT prophylaxis. Lovenox. 14. GI prophylaxis. Protonix 40 mg IV push daily. CODE STATUS: Full code Prognosis guarded. Impression and plan of care have been directed as dictated by the signing physician. Kimberly Boswell nurse practitioner acting as scribe for signing physician. Objective - Vital Signs Vital signs: Vital Signs Temp 98.4 F 09/22/20 04:00 Pulse 59 L 09/22/20 07:00 Resp 36 H 09/22/20 07:00 BP 100/64 09/21/20 23:00 Pulse Ox 99 09/22/20 07:00 Intake & Output 09/21/20 09/22/20 09/22/20 18:59 06:59 18:59 Intake Total 1251.036 899.992 Output Total 1415 5 Balance -163.964 894.992 Weight 119.975 kg Intake: IV 299 276 0.9 Normal Saline @ KVO 260 240 Pressure Bag 39 36 Intake, IV Titration 168.036 290.992 Amount fentaNYL (PF). 1,000 mcg 68.036 100.000 In Sodium Chloride 0.9% 80 ml @ Per Protocol IV . Q0M [facility] Rx#:[id number] propofoL 1,000 mg In 100.00 190.992 Empty Bag 1 bag @ Titrate IV .Q0M [facility] Rx#: [id number] Tube Feeding 294 273 Hemodialysis 400 Other 90 60 Output: Urine 15 5 Hemodialysis 1400 Other: Voiding Method Indwelling Catheter Indwelling Catheter ABP, PAP, CO, CI - Last Documented Arterial Blood Pressure 153/69 - Labs CBC & Chem 7: 09/22/20 03:15 09/22/20 03:15 Labs: Abnormal Lab Results - Last 24 Hours (Table) 09/21/20 09/21/20 09/21/20 Range/Units 11:56 17:55 19:56 WBC (3.8-10.6) k/uL RBC (3.80-5.40) m/uL Hgb (11.4-16.0) gm/dL Hct (34.0-46.0) % Neutrophils # (1.3-7.7) k/uL ABG pCO2 (35-45) mmHg ABG pO2 (83-108) mmHg Sodium (137-145) mmol/L Potassium 3.0 L (3.5-5.1) mmol/L Carbon Dioxide (22-30) mmol/L BUN (7-17) mg/dL Creatinine (0.52-1.04) mg/dL Glucose (74-99) mg/dL POC Glucose (mg/dL) 189 H 254 H (75-99) mg/dL Total Protein (6.3-8.2) g/dL Albumin (3.5-5.0) g/dL 09/21/20 09/21/20 09/22/20 Range/Units 20:05 23:58 03:15 WBC 16.5 H (3.8-10.6) k/uL RBC 3.26 L (3.80-5.40) m/uL Hgb 8.9 L (11.4-16.0) gm/dL Hct 27.4 L (34.0-46.0) % Neutrophils # 13.9 H (1.3-7.7) k/uL ABG pCO2 (35-45) mmHg ABG pO2 (83-108) mmHg Sodium (137-145) mmol/L Potassium (3.5-5.1) mmol/L Carbon Dioxide (22-30) mmol/L BUN (7-17) mg/dL Creatinine (0.52-1.04) mg/dL Glucose (74-99) mg/dL POC Glucose (mg/dL) 255 H 234 H (75-99) mg/dL Total Protein (6.3-8.2) g/dL Albumin (3.5-5.0) g/dL 09/22/20 09/22/20 09/22/20 Range/Units 03:15 04:45 06:12 WBC (3.8-10.6) k/uL RBC (3.80-5.40) m/uL Hgb (11.4-16.0) gm/dL Hct (34.0-46.0) % Neutrophils # (1.3-7.7) k/uL ABG pCO2 33 L (35-45) mmHg ABG pO2 81 L (83-108) mmHg Sodium 134 L (137-145) mmol/L Potassium (3.5-5.1) mmol/L Carbon Dioxide 21 L (22-30) mmol/L BUN 34 H (7-17) mg/dL Creatinine 3.89 H (0.52-1.04) mg/dL Glucose 286 H (74-99) mg/dL POC Glucose (mg/dL) 324 H (75-99) mg/dL Total Protein 5.0 L (6.3-8.2) g/dL Albumin 2.5 L (3.5-5.0) g/dL
--- NOTE | 2020-09-22 11:40 | P.PN ---
Subjective Progress Note Date: 09/22/20 CHIEF COMPLAINT: COVID-19 pneumonia HISTORY OF PRESENT ILLNESS: Patient is in the ICU for COVID-19 pneumonia and respiratory failure. She is status post tracheostomy and PEG tube placement with Dr. hollis. Patient is tolerating tube feedings. Patient remains on mechanical ventilation. She had hemodialysis yesterday. No plans for hemodialysis today. Afebrile. WBC 16.5 hemoglobin 8.9 Patient seen and examined with Dr. hollis PHYSICAL EXAM: VITAL SIGNS: Reviewed. GENERAL: Well-developed in no acute distress. HEENT: No sclera icterus. Extraocular movements grossly intact. Moist buccal m ucosa. Head is atraumatic, normocephalic. Tracheostomy site clean dry and intact. No evidence of bleeding ABDOMEN: Soft. Nondistended. Nontender. PEG tube site clean dry and intact NEUROLOGIC: Sedated ASSESSMENT: 1. Acute hypoxic respiratory failure with prolonged mechanical ventilation due to COVID-19 pneumonia status post tracheostomy placement 2. Severe protein calorie malnutrition status post PEG tube placement PLAN: -Continue titrating tube feedings per dietitian recommendations -Continue supportive care -Continue ICU management Physician Scada Engineer note has been reviewed by physician. Signing provider agrees with the documented findings, assessment, and plan of care. Objective - Vital Signs Vital signs: Vital Signs Temp 98.6 F 09/22/20 08:00 Pulse 56 L 09/22/20 11:00 Resp 36 H 09/22/20 11:00 BP 100/64 09/22/20 11:00 Pulse Ox 92 L 09/22/20 11:00 Intake & Output 09/21/20 09/22/20 09/22/20 18:59 06:59 18:59 Intake Total 1251.036 899.992 206 Output Total 1415 5 0 Balance -163.964 894.992 206 Weight 119.975 kg 119.975 kg Intake: IV 299 276 92 0.9 Normal Saline @ KVO 260 240 80 Pressure Bag 39 36 12 Intake, IV Titration 168.036 290.992 Amount fentaNYL (PF). 1,000 mcg 68.036 100.000 In Sodium Chloride 0.9% 80 ml @ Per Protocol IV . Q0M [facility] Rx#:[id number] propofoL 1,000 mg In 100.00 190.992 Empty Bag 1 bag @ Titrate IV .Q0M [facility] Rx#: [id number] Tube Feeding 294 273 84 Hemodialysis 400 Other 90 60 30 Output: Urine 15 5 0 Hemodialysis 1400 Other: Voiding Method Indwelling Catheter Indwelling Catheter Indwelling Catheter ABP, PAP, CO, CI - Last Documented Arterial Blood Pressure 135/62 - Labs CBC & Chem 7: 09/22/20 03:15 09/22/20 03:15 Labs: Abnormal Lab Results - Last 24 Hours (Table) 09/21/20 09/21/20 09/21/20 Range/Units 11:56 17:55 19:56 WBC (3.8-10.6) k/uL RBC (3.80-5.40) m/uL Hgb (11.4-16.0) gm/dL Hct (34.0-46.0) % Neutrophils # (1.3-7.7) k/uL ABG pCO2 (35-45) mmHg ABG pO2 (83-108) mmHg Sodium (137-145) mmol/L Potassium 3.0 L (3.5-5.1) mmol/L Carbon Dioxide (22-30) mmol/L BUN (7-17) mg/dL Creatinine (0.52-1.04) mg/dL Glucose (74-99) mg/dL POC Glucose (mg/dL) 189 H 254 H (75-99) mg/dL Total Protein (6.3-8.2) g/dL Albumin (3.5-5.0) g/dL 09/21/20 09/21/20 09/22/20 Range/Units 20:05 23:58 03:15 WBC 16.5 H (3.8-10.6) k/uL RBC 3.26 L (3.80-5.40) m/uL Hgb 8.9 L (11.4-16.0) gm/dL Hct 27.4 L (34.0-46.0) % Neutrophils # 13.9 H (1.3-7.7) k/uL ABG pCO2 (35-45) mmHg ABG pO2 (83-108) mmHg Sodium (137-145) mmol/L Potassium (3.5-5.1) mmol/L Carbon Dioxide (22-30) mmol/L BUN (7-17) mg/dL Creatinine (0.52-1.04) mg/dL Glucose (74-99) mg/dL POC Glucose (mg/dL) 255 H 234 H (75-99) mg/dL Total Protein (6.3-8.2) g/dL Albumin (3.5-5.0) g/dL 09/22/20 09/22/20 09/22/20 Range/Units 03:15 04:45 06:12 WBC (3.8-10.6) k/uL RBC (3.80-5.40) m/uL Hgb (11.4-16.0) gm/dL Hct (34.0-46.0) % Neutrophils # (1.3-7.7) k/uL ABG pCO2 33 L (35-45) mmHg ABG pO2 81 L (83-108) mmHg Sodium 134 L (137-145) mmol/L Potassium (3.5-5.1) mmol/L Carbon Dioxide 21 L (22-30) mmol/L BUN 34 H (7-17) mg/dL Creatinine 3.89 H (0.52-1.04) mg/dL Glucose 286 H (74-99) mg/dL POC Glucose (mg/dL) 324 H (75-99) mg/dL Total Protein 5.0 L (6.3-8.2) g/dL Albumin 2.5 L (3.5-5.0) g/dL
[2020-09-22 11:49] LABS: Glucose,Whole Blood 232 mg/dL (75-99)
[2020-09-22] MEDS: CISATRACURIUM 200 MG in SODIUM CHLORIDE 0.9% 180 ML IV SCH (12:54)
[2020-09-22 17:09] LABS: Glucose,Whole Blood 328 mg/dL (75-99)
[2020-09-22] MEDS: SODIUM CHLORIDE 0.9% 500 ML 500 ML IV SCH (17:09)
[2020-09-22] MEDS: fentaNYL (PF). 1,000 MCG in SODIUM CHLORIDE 0.9% 80 ML IV SCH ×3 (19:59)
[2020-09-22] MEDS: NOREPINEPHRINE 8 MG in SODIUM CHLORIDE 0.9% 250 ML IV SCH (20:04)
[2020-09-22 20:17] LABS: Glucose,Whole Blood 214 mg/dL (75-99)
[2020-09-22] MEDS: INSULIN DETEMIR (LEVEMIR) 100 UNIT/ML SYR SQ SCH (20:32)
[2020-09-22 23:42] LABS: Glucose,Whole Blood 220 mg/dL (75-99)
[2020-09-23 05:25] LABS: Glucose,Whole Blood 194 mg/dL (75-99)
[2020-09-23 05:26] LABS: ABG Base Excess -1.3 mmol/L; ABG HCO3 23 mmol/L (21-25); ABG Oxygen Saturation 86.8 % (94-97); ABG PCO2 36 mmHg (35-45); ABG PH 7.42 (7.35-7.45); ABG TCO2 24 mmol/L (19-24)
[2020-09-23] MEDS: INSULIN ASPART (NovoLOG) 100 UNIT/ML VIAL SQ SCH ×4 (05:32→23:37)
[2020-09-23 05:33] LABS: HCT 26.2 % (34.0-46.0); HGB 9.1 gm/dL (11.4-16.0); MCHC 34.7 g/dL (31.0-37.0); MCV 83.5 fL (80.0-100.0); Mean Platelet Volume 9.9; Platelet Count 194 k/uL (150-450); Poikilocytosis Slight; RBC 3.14 m/uL (3.80-5.40); RDW 15.5 % (11.5-15.5); WBC 13.6 k/uL (3.8-10.6)
[2020-09-23 05:40] LABS: ABG PO2 53 mmHg (83-108); Allen Test Performed? no
[2020-09-23 05:54] LABS: C Reactive Protein 1.1 mg/dL (<1.0); Calcium 8.9 mg/dL (8.4-10.2)
--- NOTE | 2020-09-23 05:59 | XR ---
EXAMINATION TYPE: XR chest 1V portable DATE OF EXAM: 09/23/2020 CLINICAL HISTORY: Difficulty breathing and covid pneumonia progress study. TECHNIQUE: Single AP portable semiupright view of the chest is obtained. COMPARISON: Chest x-ray from one day earlier and older studies. FINDINGS: Stable tracheostomy tube. Stable right internal jugular large bore catheter. Bilateral multifocal and confluent opacities redemonstrated. Cardiac silhouette size stable and mildl y enlarged. Osseous structures are intact. IMPRESSION: Bilateral multifocal and confluent opacities consistent with covid-19 infection redemonst rated. No significant change from one day earlier.
[2020-09-23] MEDS ORDERED: POTASSIUM CHLORIDE 10 MEQ in WATER FOR INJECTION 1 100ML.BAG IVPB ONE (06:00)
[2020-09-23] MEDS: SYMBICORT 160-4.5 MCG INHALER INHALATION SCH ×2 (08:39→19:26)
[2020-09-23] MEDS: ALBUTEROL HFA INHALER INHALATION SCH ×4 (08:39→19:26)
[2020-09-23] MEDS: SODIUM BICARBONATE TAB 650 MG TAB PO SCH ×3 (09:02→22:03)
[2020-09-23] MEDS: CHLORHEXIDINE GLUCONATE 15 ML CUP MUCOUS MEM SCH ×2 (09:02→21:59)
[2020-09-23] MEDS: ZINC SULFATE 220 MG CAP PO SCH (09:02)
[2020-09-23] MEDS: CHOLECALCIFEROL 25 MCG (1000 IU) TABLET PO SCH (09:02)
[2020-09-23] MEDS: ASCORBIC ACID 500 MG TAB PO SCH ×2 (09:02→21:59)
[2020-09-23] MEDS: METOPROLOL TARTRATE 25 MG TAB PO SCH ×2 (09:02→21:59)
[2020-09-23] MEDS: ENOXAPARIN 60 MG/0.6 ML SYRINGE SQ SCH ×2 (09:03→21:59)
[2020-09-23] MEDS: PANTOPRAZOLE 40 MG/10 ML VIAL IVP SCH (09:03)
[2020-09-23] MEDS: DEXAMETHASONE SOD PHOSPHATE 10 MG/ML 1 ML VIAL IV SCH (09:03)
--- NOTE | 2020-09-23 10:04 | P.PN ---
Subjective Progress Note Date: 09/23/20 Principal diagnosis: Acute hypoxemic respiratory failure secondary COVID-19 pneumonia, DKA This is a 55-year-old -[place] female with history of type 2 diabetes, admitted today through the emergency room with a few days' history of increased shortness of breath, cough, fever, chest x-ray in the ER showed bilateral infiltrates consistent with COVID-19 pneumonia in the patient had positive PCR for COVID-19 infection. Patient had significantly abnormal labs on admission, she had an extremely low bicarb, extremely low pH, and marginal oxygenation at best. Patient was admitted to the regular medical floor, and I happened to be rounding on that same floor were and I was notified about this patient having worsening respiratory distress. Evaluated the patient, clearly the patient has DKA and she clearly has acute hypoxic respiratory failure secondary to COVID-19 pneumonia. As soon as I laid eyes on the patient, recommended immediate transfer to the ICU. Patient was placed on BiPAP however she did not tolerate BiPAP well, and when I went back to evaluate the patient in the ICU, she was basically deteriorating, and she was using her accessory muscles, patient was in severe respiratory distress. Hence I recommended immediate intubation and placement on mechanical ventilation. Chest x-ray continued to show bilateral infiltrates consistent with worsening COVID-19 pneumonia ABG showed a pO2 of 59 pCO2 of 42 pH of 7.05 and this was on the 100% FiO2 20 of PEEP tidal volume of 375 rate of 36. Patient will be given more bicarb and she is already on a bica rb drip. She is receiving insulin and she is also receiving IV fluids in the form of 0.9 normal saline. Sugars were 384. Inflammatory markers were added to be extremely high, LDH 2048, and C-reactive protein of 8.7. D-dimer was borderline elevated at 1.84. On 09/12/2020 patient seen in follow-up in the intensive care unit, yesterday she was emergently transferred to the intensive care and intubated and placed on mechanical ventilator. She remains intubated, sedated on mechanical ventilator, currently on assist control mode of ventilation with a rate 36, tidal vital 375, FiO2 100% and PEEP of 20. This might blood gas reveals pO2 of 62, pCO2 40, pH of 7.35 this was done on FiO2 of 80%, her peak airway pressure is 35, in her plateau pressure is around 32. she is sedated on Diprivan and 60 mics per kilo per minute, 0.9 normal saline at 100 ML per hour, insulin drip is at 4 units per hour, and she has 5% dextrose with 3 units of bicarbonate at 100 ML per hour. Today's labs have been reviewed, showing white blood cell count 10.3, hemoglobin of 14.4, d-dimer has increased to 14.31, and her Lovenox was adjusted and increased to 50 mg twice daily, sodium is 137, potassium is 3.7, chloride is 112, CO2 is up to 21, BUN of 16 creatinine is 1.57, LDH is 2618, CRP is 18.2. Pro-Calcitonin level came back elevated at 3.53, suggesting possibility of bacterial infection She received a liter bolus yesterday after intubation. We will give the patient additional fluid boluses today. Sputum culture has been sent and is pending, blood cultures have been sent. Patient has been placed in prone position at 8:00 last night, and her oxygenation seems to be improved and she satting 97% on 100% FiO2 and subsequently FiO2 was dropped down to 80%, and PEEP is down to 18. She remains in prone positioning, tolerating it well, she is having low-grade fevers, she is in sinus mechanism with tachycardic on the monitor, not requiring any vasopressor support right now, will start tube feedi ngs today when the patient is placed back over in the supine position On 09/13/2020 patient seen in follow-up in intensive care unit, she remains proned, and at the time of our evaluation patient has already been prone for close to 16 hours and is about to be turned back on her spine. She tolerates prone position quite well, she remains intubated, paralyzed and sedated on mechanical ventilator, current vent settings are assist-control mode of ventilation with a rate of 36, tidal volume 375, FiO2 of 70% and PEEP of 18, this point his blood gases show pO2 of 82, pCO2 of 39, and pH of 7.19. She's currently on D5 W with 3 A of bicarbonate at 75 per hour, Diprivan is a 60 mics per kilo per minute, index is at 2 mics per kilo per minute, and insulin drip is at 6 units per hour, patient has not started tube feedings yet. She is in sinus mechanism, hemodynamically stable, not requiring any vasopressor support. Today's chest x-ray has been reviewed showing bilateral lung infiltrates that a ppear to be stable. Today's labs have been reviewed showing white blood cell count of 11.1, hemoglobin 13.2, d-dimer is pending, yesterday his d-dimer was 14.3, patient's Lovenox dose was increased to 50 mg every 24 hours. Her renal function continued to worsen, and her creatinine is up to 3.4 on today's labs, BUN is 24, were bicarb concentration is only 13 on today's labs, sodium is 137, potassium is 4.0. AST is up to 77, ALT and alk phos are within normal limits, yesterday set him inflammatory markers with showing up trending LDH at 2618, and CRP of 18.2. Her pro-calcitonin level was increased yesterday at 3.53 and we added empiric antibiotics in the form of Zosyn. Sputum culture has been sent and has shown no growth. Overnight patient remained oliguric, yesterday we gave her additional fluids, however did not improve her renal function and her kidney function continued to get worse. Nephrology consultation has been requested, she has only been producing urine in the order of 5-10 ML per hour, renal ultrasound has been obtained showing no evidence of hydronephrosis bilaterally. On 09/14/2020 patient seen in follow-up in intensive care unit, she remains intubated, sedated and paralyzed, currently on assist control mode of ventilation with a rate of 36, tidal vital 375, FiO2 of 60% and PEEP of 18. This morning's blood gas was reviewed showing pO2 of 60, pCO2 of 43, and pH of 7.32. This was done on FiO2 of 70%, her peak airway pressure is 40, plateau pressures 26. She is currently on D5 with 3 A of bicarbonate at 100 ML per hour, insulin drip is at 7 units per hour, fentanyl drip is a 0.5 mics per kilo per hour, Diprivan and is at 50 mics per kilo per minute, and index is at 2 mics per kilo per minute. She is tolerating tube feedings of vital high-protein at 27 with a goal 27 standard water flushes. Today's chest x-ray has not been completed yet, because the patient has been in prone position for last 16 hours. Patient tolerates prone in quite well, and her oxygenation improves when she is in prone position. However when she is turned over in the supine position to complete chest x-rays and ADL's, patient's O2 sat drops down to low 80s and her FiO2 requirement increases at that time. Today's labs have been reviewed, and there has been further worsening of her renal function, and patient has made almost no urine overnight. Her BUN is 33, and creatinine is 4.87, nephrology is following, her renal ultrasound showed no evidence of hydronephrosis. Her urinalysis showed possibility of urinary tract infection, and patient has been started on cefepime. Urine culture is pending at this time, blood and sputum cultures have been negative. No fevers overnight, she's not requiring any vasopressor support. On 09/15/2020 patient seen in follow-up in intensive care unit, she remains intubated, sedated and paralyzed on assist-control mode of ventilation with a rate of 36, tidal vital 375, FiO2 100% and PEEP of 18, this morning's blood gas reviewed showing pO2 of 58, pCO2 of 45, and pH is 7.35, this was done on FiO2 of 100%. Her peak airway pressures 44, plateau pressures 38, she is on 0.9 normal saline at 50 ML per hour, Diprivan is a 40 mics per kilo per minute, Nimbex drip is a 2 mics per kilo per minute, and fentanyl drip at 0.5 mics per kilo per hour, she is tolerating tube feedings with vital high-protein is 27 with a goal of 27 standard water flushes. She is in sinus mechanism with a rate of 73, she is hemodynamically stable and not requiring any vasopressors. Today's chest x- ray shows ARDS, bilateral airspace opacities, no significant pleural effusion and no pneumothorax. Today's labs have been reviewed, white blood cell count is 9.9, hemoglobin is 11.3, sodium is 134, respiratory electrolytes were within normal limits, and there has been further worsening of her renal function with BUN of 34, creatinine is 4.78, her urine output has remained very poor. Last night she had her first hemodialysis session and no fluid was removed, this morning she is having another hemodialysis treatments and the goal is to remove half a liter of fluid. Her sputum, blood and urine cultures remained negative thus far, patient's pro-calcitonin level came back significantly elevated at 23.5 suggesting evidence of bacterial infection. Patient remains on cefepime for antibiotic coverage, she also remains on Decadron milligrams twice daily, and Lovenox is 50 mg every 24 hours. The patient is seen today 09/16/2020 in follow-up in the intensive care unit. She remains intubated on the mechanical ventilator. Current settings assist- control at a rate of 36, tidal volume 3 or 75, FiO2 100% and a PEEP of 18. Morning blood gases reveal a pO2 of 61, pCO2 49, pH 7.32. Peak pressures of 48, plateau pressure 43. Chest x-ray continues to show evidence of ARDS, pulmonary edema, diffuse pneumonia. She was not proned last night. The plan is to receive hemodialysis again today. Ultrasound of the chest did not reveal any si gnificant fluid for thoracentesis. Sedated on propofol at 50 mcg/kg/m, fentanyl at 0.5 mcg/kg per hour, Nimbex at 3 mcg/kg/m. Insulin drip at 4 units per hour. She is being nourished with vital HPI at 36 ML's per hour. 0.9 normal saline at 60 ML's per hour. Blood, sputum and urine cultures reveal no growth. White count 11.2. Hemoglobin 11.0. Sodium 134. Potassium 3.4. Creatinine 4.44. G lucose 164. She remains in sinus rhythm. She is continued on Symbicort, albuterol. Antibiotics in the form of cefepime. Remains on Decadron, Lovenox, vitamin supplements. On 09/18/2020 patient seen in follow-up in the intensive care unit. She remains intubated, sedated and paralyzed on mechanical ventilator on assist control mode with a rate of 36, tidal volume 375, FiO2 of 60% and PEEP of 20, this might blood gas shows pO2 of 72, pCO2 38, and pH is 7.35, today's chest x-ray still showing bilateral airspace disease possibly slightly improved compared yesterday's chest x-ray. Patient is currently on multiple drips including 0.9 normal saline at 20 no per hour, Nimbex is at 3 mics per kilo per minute, Diprivan is at 50 mics per kilo per minute, fentanyl drip is at 1 phil per kilo per hour, insulin drip is at 4 units per hour, she is on tube feedings with vital high-protein at a rate of 10 with a goal of 36 and standard water flushes. Patient has been getting hemodialysis treatments, her last treatment was on 09/16/2020 with removal of 1.2 L of fluid. Today's labs have been reviewed, showing white blood cell count of 12.6, hemoglobin of 9.8, last d-dimer from yesterday was 6.83, and patient remains on Lovenox and 50 mg daily, sodium was 133, potassium is 3.2, chloride is 102, CO2 is 21, BUN of 35, creatinine is 4.12. Her last set of inflammatory markers was from yesterday showing improvement although LDH was still elevated at 1913, and CRP was 1.3. She remains on IV Decadron 6 mg twice daily, she is also on cefepime for empiric antibiotic coverage, and so far all her cultures including sputum blood and urine are negative. Patient has been tolerating prone positioning well, and she has been prone up to 16-20 hours on a daily basis. On 09/19/2020 patient seen in follow-up in intensive care unit, she remains sedated, paralyzed and trached to the ventilator currently on assist control mode of ventilation with a rate of 36, tidal volume is 375, FiO2 of 60% and PEEP of 20. This morning's blood gases show pO2 of 85, pCO2 37, and pH of 7.33, and this was done and FiO2 of 60%. She is status post tracheostomy and PEG tube placement yesterday on 09/18/2020, she is currently in supine position, and that she is having hemodialysis treatment. Yesterday 2-1/2 L of fluid was removed with hemodialysis, the goal to remove another 2 L of fluid with today's hemodial ysis treatments, today's chest x-ray shows bilateral multifocal and confluent opacities consistent with COVID-19 infection, and some improved aeration at the periphery of the left lung but worsening opacities throughout the right lung compared to one day earlier. Patient is currently on 0.9 normal seen at 20 ML per hour, Nimbex is at 1.5 mics per kilo per minute, Diprivan is a 50 mics per kilo per minute, we will send is currently off, fentanyl drip is at 1 phil per kilo per hour, and insulin is at 5 units per hour, tube feedings are on hold and are expected to be restarted later on today. His labs have been reviewed showing white blood cell count of 14.3, hemoglobin of 9.6, d-dimer is relatively stable at 6.48, sodium is 130, potassium is 3.5, CO2 of 18, and renal profile shows some improvement with BUN of 34, and creatinine is 3.81. Her inflammatory markers are improving, LDH today is 1686, and CRP is 1.1. Her blood sputum and urine cultures have shown no growth to date. Patient continues on cefepime, current dose Lovenox is 15 mg once daily adjusted for her renal function, and she continues on Decadron 6 mg twice daily. The patient is seen today on 09/20/2020 in follow-up in the intensive care unit. She remains on the mechanical ventilator. Current settings assist-control 36, tidal 5 375, FiO2 50% and a PEEP of 20. Arterial blood gases revealed a PaO2 of 74, pCO2 37, pH 7.37. She remains on fentanyl at 1 mcg/kg per hour. Propofol at 50 g per kilogram per minute. Nimbex is off since yesterday. Insulin drip currently on hold. She normally is receiving vital HPI at 10 MLS per hour with a goal of 27. She is status post tracheostomy and PEG tube placements on 09/18/2020. The plan is for permacath placement today. Chest x-ray continues to show stable diffuse bilateral interstitial and airspace disease with a small right effusion. Blood urine and sputum cultures had revealed no growth. White count 14.5. Hemoglobin 9.1. D-dimer 6.13. Sodium 133. Potassium 3.1. Creatinine 4.27. Glucose 128. LDH 1717. C-reactive protein 1.7. She remains on Decadron, Lovenox, vitamin supplements. Continued on bronchodilators. The patient is seen today 09/21/2020 in follow-up in the intensive care unit. She remains on the mechanical ventilator. Assist-control rate of 36, tidal ventricle 75, FiO2 50% and a PEEP of 20. Morning blood gases reveal a pO2 of 86, pCO2 35, pH 7.36. She remains sedated on propofol at 40 mcg/kg/m. Fentanyl drip at 1 mg/kg per hour. 0.9 normal saline at 20 ML's per hour. She is being nourished with vital HPI 21 ML's per hour which is goal. White count 13.3. Hemoglobin 8.7. Sodium 137. Potassium 3.6. BUN 34. Creatinine 4.21. Glucose 283. She did receive a permacath to the right internal jugular vein yesterday. Continues with hemodialysis. 2.5 L removed yesterday. Chest x-ray continues to revealed diffuse bilateral airspace disease. Unchanged compared to previous. She remains on albuterol, Symbicort, Decadron. Lovenox for DVT prophylaxis. The patient is seen today 09/22/2020 in follow-up in the intensive care unit. She remains on the mechanical ventilator. Current settings are assist-control mode at a rate of 36, tidal volume 375, FiO2 50% and a PEEP of 15. Morning blood gases reveal pO2 81, pCO2 33, pH 7.42. She remains sedated on propofol at 20 mcg/kg/m. Fentanyl at 0.5 mcg/kg per hour. 0.9 normal saline at 20 ML's per hour. She is being nourished with vital HP 21 mL per hour which is goal. Chest x-ray reveals diffuse bilateral airspace disease. Unchanged compared to previous. White count 16.5. Hemoglobin 8.9. Platelets 213. Sodium 134. Potassium 3.7. BUN 34. Creatinine 3.89. Glucose 286. No plans for dialysis today. She is continued on Decadron, Lovenox, vitamin supplements. The patient is seen today 09/23/2020 in follow-up in the intensive care unit. She remains on the mechanical ventilatorin assist control mode. Rate of 36. Tidal volume 375. FiO2 50%. PEEP of 10. Morning blood gases reveal a P O2 of 53, pCO2 36, pH 7.42. Sedated with propofol at 30 mcg/kg/m. On fentanyl at 0.5 mcg/kg per hour. 0.9 normal saline at KVO. Being nourished with vital HP at 45 ML's per hour which is goal. Chest x-ray continues to show bilateral multifocal confluent opacities consistent with COVID-19 infection. Currently receiving hemodialysis. Blood, sputum, urine cultures had revealed no growth. White count 13.6. Hemoglobin 9.1. D-dimer 9.91. Sodium 136. Potassium 3.0. Bicarb 21. BUN 49. Creatinine 5.31. Glucose 182. LDH 1785. C-reactive protein 1.1., Remains on Decadron, Lovenox, vitamin supplements. On Symbicort and albuterol. Objective - Vital Signs Vital signs: Vital Signs Temp 98.2 F 09/23/20 08:00 Pulse 58 L 09/23/20 09:00 Resp 36 H 09/23/20 09:00 BP 100/64 09/22/20 18:00 Pulse Ox 86 L 09/23/20 09:00 Intake & Output 09/22/20 09/23/20 09/23/20 18:59 06:59 18:59 Intake Total 622 1061 294 Output Total 10 25 0 Balance 612 1036 294 Weight 119.975 kg 121 kg Intake: IV 253 276 69 0.9 Normal Saline @ KVO 220 240 60 Pressure Bag 33 36 9 Intake, IV Titration 200 Amount fentaNYL (PF). 1,000 mcg 100 In Sodium Chloride 0.9% 80 ml @ Per Protocol IV . Q0M [facility] Rx#:[id number] propofoL 1,000 mg In 100 Empty Bag 1 bag @ Titrate IV .Q0M [facility] Rx#: [id number] Tube Feeding 279 495 135 Other 90 90 90 Output: Urine 10 25 0 Other: Voiding Method Indwelling Catheter Indwelling Catheter Indwelling Catheter ABP, PAP, CO, CI - Last Documented Arterial Blood Pressure 132/55 - Exam GENERAL EXAM: Sedated, 35-year-old female patient, on assist control mode of ventilation with FiO2 50 percent and PEEP of 10, with a pulse ox of 89% comfortable in no apparent distress. HEAD: Normocephalic/atraumatic. EYES: Normal reaction of pupils, equal size. Conjunctiva pink, sclera white. NOSE: Clear with pink turbinates. THROAT: No erythema or exudates. NECK: Right internal jugular hemodialysis catheter placed. Tracheostomy tube secured in place. No masses, no JVD, no thyroid enlargement, no adenopathy. CHEST: No chest wall deformity. Symmetrical expansion. LUNGS: Equal air entry with bilateral crackles CVS: Regular rate and rhythm, normal S1 and S2, no gallops, no murmurs, no rubs ABDOMEN: PEG tube exit site clean and dry. No hepatosplenomegaly, normal bowel sounds, no guarding or rigidity. EXTREMITIES: No clubbing, no edema, no cyanosis, 2+ pulses and upper and lower extremities. MUSCULOSKELETAL: Muscle strength and tone normal. SPINE: No scoliosis or deformity SKIN: No rashes CENTRAL NERVOUS SYSTEM: Sedated. No focal deficits, tone is normal in all 4 extremities. - Labs CBC & Chem 7: 09/23/20 05:05 09/23/20 05:05 Labs: Abnormal Lab Results - Last 24 Hours (Table) 09/22/20 09/22/20 09/22/20 Range/Units 11:48 17:07 20:15 WBC (3.8-10.6) k/uL RBC (3.80-5.40) m/uL Hgb (11.4-16.0) gm/dL Hct (34.0-46.0) % D-Dimer (<0.60) mg/L FEU ABG pO2 (83-108) mmHg ABG O2 Saturation (94-97) % Sodium (137-145) mmol/L Potassium (3.5-5.1) mmol/L Carbon Dioxide (22-30) mmol/L BUN (7-17) mg/dL Creatinine (0.52-1.04) mg/dL Glucose (74-99) mg/dL POC Glucose (mg/dL) 232 H 328 H 214 H (75-99) mg/dL Lactate Dehydrogenase (313-618) U/L C-Reactive Protein (<1.0) mg/dL 09/22/20 09/23/20 09/23/20 Range/Units 23:40 05:05 05:05 WBC 13.6 H (3.8-10.6) k/uL RBC 3.14 L (3.80-5.40) m/uL Hgb 9.1 L (11.4-16.0) gm/dL Hct 26.2 L (34.0-46.0) % D-Dimer 9.91 H (<0.60) mg/L FEU ABG pO2 (83-108) mmHg ABG O2 Saturation (94-97) % Sodium (137-145) mmol/L Potassium (3.5-5.1) mmol/L Carbon Dioxide (22-30) mmol/L BUN (7-17) mg/dL Creatinine (0.52-1.04) mg/dL Glucose (74-99) mg/dL POC Glucose (mg/dL) 220 H (75-99) mg/dL Lactate Dehydrogenase (313-618) U/L C-Reactive Protein (<1.0) mg/dL 09/23/20 09/23/20 09/23/20 Range/Units 05:05 05:23 05:23 WBC (3.8-10.6) k/uL RBC (3.80-5.40) m/uL Hgb (11.4-16.0) gm/dL Hct (34.0-46.0) % D-Dimer (<0.60) mg/L FEU ABG pO2 53 L* (83-108) mmHg ABG O2 Saturation 86.8 L (94-97) % Sodium 136 L (137-145) mmol/L Potassium 3.0 L (3.5-5.1) mmol/L Carbon Dioxide 21 L (22-30) mmol/L BUN 49 H (7-17) mg/dL Creatinine 5.31 H (0.52-1.04) mg/dL Glucose 182 H (74-99) mg/dL POC Glucose (mg/dL) 194 H (75-99) mg/dL Lactate Dehydrogenase 1785 H (313-618) U/L C-Reactive Protein 1.1 H (<1.0) mg/dL Assessment and Plan Assessment: 1 Acute hypoxic respiratory failure secondary to COVID-19 pneumonia, transferred to the intensive care unit on 09/11/2020 and intubated and placed on mechanical ventilator on 09/11/2020. Patient received 1 dose of Remdesivir on 09/11/2020, however based on her quick progression of her hypoxic respiratory failure she received Tocilizumab 800 mg on 09/11/2020. Tracheostomy and PEG tube placed on 09/18/2020. 2 Acute kidney injury related to ATN, nephrology has been consulted, ultrasound of the kidneys showed no evidence of hydronephrosis. Patient was initiated on hemodialysis on 09/14/2020. Permacath placed 09/20/2020. 3 Acute diabetic ketoacidosis, resolved 4 Acute metabolic acidosis related to acute DKA, and acute kidney injury. Recovered with bicarbonate infusion 5 Increased d-dimer, related to COVID-19 pneumonia, currently on Lovenox 50 mg daily 6 Possible sepsis with increased pro-calcitonin suggesting presence of bacterial infection, cultures have been sent and all negative 7 Diabetes mellitus type 2 8 Morbid obesity with BMI 45.3 kg/m 9 Nonsmoker Plan: The patient was seen and evaluated by Dr. Issa Chest x-ray, ABGs and labs reviewed Receiving hemodialysis today If no improvement in saturations will increase the PEEP to 14 Increase Lovenox 60 mg every 12 hours Continue tube feedings as tolerated Continue daily interruption of sedation Continue current treatment plan We will continue to follow and make further recommendations based on her cli nical status Critical care time 38 minutes I, the cosigning physician, performed a history & physical examination of the patient. Lungs sounds with crackles in the bilateral bases. Maintaining O2 saturations in the 90s on 50% FiO2 and a PEEP of 10 per the mechanical ventilator. I discussed the assessment and plan of care with my nurse practitioner, Kyara Concepcion. I attest to the above note as dictated by her.
--- NOTE | 2020-09-23 10:23 | P.PN ---
Subjective Progress Note Date: 09/23/20 HISTORY OF PRESENT ILLNESS 35-year-old female patient of Dr. Arroyo with past medical history of type 2 diabetes comes in with acute shortness of breath associated with high light s ugars. Patient on admission was found to have a fever of 101.5 pulse rate 125 respiratory rate 20. Blood pressure 132/106. On chest x-ray obtained in the ER suggestive of bilateral infiltrates concerning for call with pneumonia. COVID PCR was positive. On admissions patient had an ABG with a pH of 7.14 pCO2 of 20, pO2 of 59, bicarb of 7. Patient's blood sugar on admission was 424 on assessment today patient's blood work patient had a sodium 135 potassium 5.4 chloride 123 bicarb less than 5 and creatinine 0.73. D-dimer was elevated on admission patient 9 28 patient given 1 L of IV fluids followed by normal saline running at 200 mL/h. Patient was positive for acetone on admission. She will anion gap closed and was switched to D5NS. Insulin drip was continued during the night and was switched to patient's home medication this morning. One dose of remdesiver was ordered. Apparently around noon, A- team was called on the patient secondary to hypoxia patient's oxygen saturation dropped to the 70s and 80s on 100% nonrebreather. Patient was switched to BiPAP on 18/12 and is doing better o FiO2 of 80%. ABG was obtained and ph was 7. 14 pCO2 of 28 bicarb of 7 pO2 of 17. Patient noted to have uncompensated metabolic acidosis with compensated respiratory alkalosis. Stat dose of 1 amp bicarb was given and followed by sodium bicarbonate drip. Insulin drip restarted. Patient's initiated on dexamethasone 6 mg IV twice a day. Potassium phosphate ordered as phosphorus is low. Patient's repeat blood gases suggest a pH of 7.25, CO2 32 pO2 of 72 bicarb 14. I will not normal saline at 100 mL/h as patient's anion gap has increased. Patient given 1 dose of 2 mg of morphine with improvement in respiratory rate. One dose of Ativan 0.5 mg was given. Xanax 0.25 twice a day along with Ativan 0.5 IV every 6 hours ordered for the patient. Vitals were evaluated patient pulse 129 [id number]. She was moved to the ICU. Precedex drip was initiated. Lopressor was initiated at 25 twice a day. Metoprolol tartrate 5 mg IV every 6 hours. Systolic blood pressure more than 160. Started chest x-ray was obtained and suggest stable bilateral consolidation suggestive of COVID-19 pneumonia. 09/12 patient is seen in the ICU is currently mechanically ventilated and sedated on vent settings of respiratory rate 36, tidal volume 375 FiO2 80% PEEP of 18.. Vital signs reviewed patient had a temp of 100.4 pulse 150 respiratory rate 36 oxygen saturation 95% on 80% on fio2 .'s labs are reviewed which patient had a d-dimer 1.84 that is increased to 14.3. Arterial Blood gas suggest ph 7.35, CO2 40, po2 62, . Her BMP suggest a sodium 135 potassium 3.7 chloride 112 bicarb 21 creatinine 1.57 for calcitonin is 3.5 CRP is increased from 8.78.2 LDH is increased to 2614. Patient remains on Pneumovax, propofol drip. Lovenox increased to 50 subcu twice a day. Patient received 2 L of IV fluids. Continue IV fluids at 100 mL/h. Bicarb drip discontinued patient initiated on Zosyn 3.375 every 8 hours. Continue insulin drip at 4 units per hour. Patient is currently in prone positioning 09/13: Patient evaluated in the ICU remains on Ventilation continues to be sedated, in prone position. Vent settings are respiratory rate 36, tidal vital 375, FiO2 70% PEEP of 18. ABG shows pO2 of 82, PCO2 of 39, pH is 7.19. Latest labs show WBC 11.1, hemoglobin 13.2, d-dimer still pending, but yesterday was up to 14.3. Creatinine up to 3.4, BUN 24 sodium 137, potassium 4.0. Patient's urine output has been low, nephrology on consult. Bicarb drip increased to 100 miles an hour, receiving another liter of normal saline, she did have a ultrasound that showed unremarkable bilateral kidneys. Repeat chest x-ray showed bilateral lung infiltrates that are stable. Anion gap has closed, will start Lantus 10 units at at bedtime Novolog every 6 hours. 09/14: Patient is seen in the ICU, still currently mechanically ventilated and sedated. She continues in the prone position. Her oxygen quickly drops if she is not in prone. Patient's kidney function has worsened. Laboratory values show creatinine of 4.87, BUN 33, LDH 2191, C-reactive protein 2.7. ABG shows pH 7.32, pO2 of 60, pCO2 43. Patient is making almost no urine overnight. Nephrology is following patient continues on cefepime for urinary tract infection, culture is still pending. Vascular has been consulted for placement of temporary hemodialysis catheter for plans for dialysis. 09/15: Patient evaluated in the ICU, continues to be mechanically ventilated and sedated on assist control ventilation rate of 36, tidal volume 375, FiO2 100% and PEEP of 18. ABG today shows pO2 58, pCO2 of 45, and pH 7.35. She continues on tube feedings. Yesterday patient underwent ultrasound-guided right internal jugular non-tunneled hemodialysis catheter placement. Patient underwent hemodialysis treatment last night and plans have another hemodialysis treatment today. She continues to make almost no urine. She continues on cefepime for antibiotic coverage, and continues on Decadron and Lovenox. 09/16: Patient seen on follow-up remains in the ICU mechanically ventilated and sedated. She continues on assist control rate of 36, tidal volume 375, FiO2 100% and PEEP of 20. PEEP had to be increased due to patient had to be in supine position for dialysis, will go back to prone position once dialysis is complete. ABG shows pH 7.32, pCO2 49, PaO2 61. Laboratory values showed WBC 11.2, hemoglobin 11, sodium 134, creatinine 4.44, BUN 38. Urine culture shows no growth, blood cultures show no growth to date. Repeat chest x-ray shows bilateral pleural effusions, correlate for ARDS, pulmonary edema, diffuse pneumonia, findings are stable from last exam. Patient does not require any pressors, blood pressure 133/57, heart rate 78. 5/16: Patient was evaluated in the ICU today for follow-up. She continues to be intubated and on mechanical ventilation. Current vent settings are tidal volume 375, FiO2 100% and PEEP of 20. ABG shows pH 7.37, pCO2 40, pO2 102. She continues with intermittent prone positioning. Patient continues to have almost no urine output, maintained on dialysis. Patient received dialysis yesterday without complication. Laboratory values revealed WBC 10.3, hemoglobin 10.4, sodium 132, potassium 3.1, BUN 33, creatinine 4.29, LDH 1913, C-reactive protein 1.3. Urine and sputum cultures are negative, blood cultures show no growth to date. Consult placed to dietary to start TPN[ ] 09/18: She remains in the intensive care unit intubated and on mechanical ventilation with tidal volume 375, FiO2 60 and PEEP of 20. Patient is being prone to daily at approximately 16 hours per day. Pulmonary medicine has added in Dr. Zhang to do PEG tube and trach today. Patient is not on vasopressors. Repeat blood work reveals WBC 12.6, hemoglobin 9.8, platelet count 212. Sodium 133, potassium 3.2, chloride 102, CO2 21, BUN 35 and creatinine 4.12. Blood sugar 126. Patient underwent hemodialysis yesterday with removal of 2 L and is scheduled again today with goal of 2-3 L and is scheduled again tomorrow. 09/19: She is scheduled for hemodialysis today and is off fentanyl temporarily. Patient is status post trach and PEG tube yesterday. And she remains on mechanical ventilation. Pulse ox 93-95%. She has been afebrile, heart rate 64, respiratory rate 36, blood pressure 115/50. Fentanyl is off to improve blood pressure for hemodialysis which is scheduled for today. Contacted vascular surgery about permanent hemodialysis catheter. Repeat blood work reveals WBC 14.3, hemoglobin 9.6, platelet count 200. D-dimer 6.48. LDH 1686. C-reactive protein 1.1. BUN 34 creatinine 3.81. Sodium 130, potassium 3.5, chloride 101, CO2 18. Blood sugars running between 101 198. Plan is to wean off Pneumovax today. Patient remains on insulin drip. Repeat chest x-ray reveals bilateral multifocal confluent opacities consistent with COVID-19. Some improved aeratio n periphery of the left lung and worsening opacities throughout the right lung. 09/20: She remains in the intensive care unit on mechanical ventilation. She has been afebrile, heart rate 65, respiratory rate 37, blood pressure 121/70, pulse ox 91-99%. Repeat blood work reveals WBC 14.5, hemoglobin 9.1, platelet count 216. D-dimer 6.13. Sodium 133, potassium 3.1, chloride 102, CO2 18, BUN 35 and creatinine 4.27. Blood sugars running between 128 and 143. LDH 1717. C- reactive protein 1.7. Patient remains on insulin drip which will be transitioned to NovoLog scale every 6 hours. Patient is scheduled for permanent hemodialysis catheter placement today with vascular surgery. Repeat chest x-ray reveals stable diffuse bilateral interstitial and airspace disease. Possible small right effusion. His work is following for transfer to skilled nursing care facility. Do not anticipate discharge until next week. 09/21: Patient is undergoing hemodialysis. She remains on mechanical ventilation with tidal volume 375, FiO2 down to 45 and PEEP was decreased to 15. Patient is continued on propofol, fentanyl drips. She is on tube feedings at goal. Patient was taken off insulin drip yesterday and on scale only but blood sugars are running in the 200s, Levemir scheduled at bedtime will be added. Other blood work reveals WBC 13.3, hemoglobin 8.7, platelet count 192. Sodium 137, potassium 3.6, chloride 107, CO2 18, BUN 34 and creatinine 4.21. Repeat chest x-ray is stable. 09/22: She remains in the intensive care on mechanical ventilation with tidal volume 375, FiO2 of 50 and PEEP of 10. Pulse ox is running 96%. She is afebrile, heart rate in the 50s, respiratory rate 36, blood pressure 100/64. Repeat blood work reveals WBC 16.5, hemoglobin 8.9, platelet count 213. Sodium 134, potassium 3.7, chloride 103, CO2 21, BUN 34 and creatinine 3.89. Blood sugars running in the 200s to 324. Levemir increased to 16 units at bedtime and continue NovoLog scale every 6 hours. Patient is on tube feedings at goal. She has a Haley catheter in with a scant amount of dark/brown urine. Fecal management system is in place. Repeat chest x-ray reveals diffuse bilateral airspace infiltrates persist unchanged. Patient is scheduled for hemodialysis tomorrow morning on Friday. 09/23: Patient remains on mechanical ventilation with tidal volume 3.75, FiO2 50 and PEEP of 10. pvc monitor sinus rhythm. She has no urine output. Fecal management system is in place. She is undergoing dialysis at this time with plan for removal of 2-1/2 L. She has been afebrile, heart rate in the 50s, respiratory rate 36, blood pressure 108/76 and pulse ox 89%. WBC 13.6, hemoglobin 9.1, platelet count 194. Sodium 136, potassium 3.0 and was replaced, chloride 106, CO2 21, BUN 49 creatinine 5.31. Blood sugars are running between 182 and this morning 194. Patient was still in the 200s and 300s. Levemir last evening was increased to 16 units. Patient remains on propofol and fentanyl drips. Lovenox was increased to 60 mg twice daily. REVIEW OF SYSTEMS Unable to obtain due to intubation. PHYSICAL EXAMINATION Gen: This is is a 35-year-old black female, patient is intubated and on mechanical ventilation, appears to be comfortable, undergoing dialysis. HEENT: Head is atraumatic, normocephalic. Pupils equal, round. Sclerae is anicte janak. Tracheostomy tube in place. NECK: Supple. No JVD. No lymphadenopathy. No thyromegaly. LUNGS: Scattered bilateral rhonchi. No intercostal retractions. HEART: Regular rate and rhythm. No murmur. ABDOMEN: Soft. Bowel sounds are present. No masses. No tenderness. PEG tube in place, area clean and dry. EXTREMITIES: No pedal edema. No calf tenderness. Dorsalis pedis +2 bilaterally. NEUROLOGICAL: Patient is awake, eyes are open. ASSESSMENT AND PLAN 1. Acute hypoxic respiratory failure secondary to Covid 19 pneumonia and possible bacterial pneumonia. Patient was intubated on September 11. She is status post 1 dose of Remdesivir and 1 dose of Tocilizumab. Continue Ventolin inhaler 4 times daily, Symbicort twice daily, Decadron 6 mg IV twice daily, Lovenox 60 mg subcu twice daily, supplements. Status post PEG tube and trach. 2. Acute diabetic ketoacidosis secondary to Covid 19 pneumonia. Continue Levemir increased to 16 units at bedtime, continue NovoLog scale every 6 hours. 3. Metabolic encephalopathy secondary to Covid 19 and DKA. 4. Sepsis secondary to Covid 19 pneumonia. Continue as in #1. 5. Acute metabolic acidosis secondary to acute DKA, Covid 19 and acute kidney injury. 6. Diabetes mellitus type 2 uncontrolled with A1c 13.6. Continue Levemir and NovoLog scale every 6 hours. 7. Hypophosphatemia status post replacement. 8. Hyperkalemia secondary to DKA, resolved. 9. Sinus tachycardia secondary to sepsis, volume deficiency.Continue Lopressor 25 mg twice daily. 10. Acute kidney injury secondary to ATN secondary to Covid 19 and DKA. Patient continued on hemodialysis. Permanent dialysis catheter placed. 11. Hypertension. 12. Morbid obesity with BMI of 53. 13. DVT prophylaxis. Lovenox. 14. GI prophylaxis. Protonix 40 mg IV push daily. CODE STATUS: Full code Prognosis guarded. Impression and plan of care have been directed as dictated by the signing physician. Kimberly Boswell nurse practitioner acting as scribe for signing physician. Objective - Vital Signs Vital signs: Vital Signs Temp 98 F 09/23/20 00:00 Pulse 62 09/23/20 07:00 Resp 39 H 09/23/20 07:00 BP 100/64 09/22/20 18:00 Pulse Ox 90 L 09/23/20 07:00 Intake & Output 09/22/20 09/23/20 09/23/20 18:59 06:59 18:59 Intake Total 622 1061 68 Output Total 10 25 0 Balance 612 1036 68 Weight 119.975 kg 121 kg Intake: IV 253 276 23 0.9 Normal Saline @ KVO 220 240 20 Pressure Bag 33 36 3 Intake, IV Titration 200 Amount fentaNYL (PF). 1,000 mcg 100 In Sodium Chloride 0.9% 80 ml @ Per Protocol IV . Q0M [facility] Rx#:[id number] propofoL 1,000 mg In 100 Empty Bag 1 bag @ Titrate IV .Q0M [facility] Rx#: [id number] Tube Feeding 279 495 45 Other 90 90 Output: Urine 10 25 0 Other: Voiding Method Indwelling Catheter Indwelling Catheter ABP, PAP, CO, CI - Last Documented Arterial Blood Pressure 132/71 - Labs CBC & Chem 7: 09/23/20 05:05 09/23/20 05:05 Labs: Abnormal Lab Results - Last 24 Hours (Table) 09/22/20 09/22/20 09/22/20 Range/Units 11:48 17:07 20:15 WBC (3.8-10.6) k/uL RBC (3.80-5.40) m/uL Hgb (11.4-16.0) gm/dL Hct (34.0-46.0) % D-Dimer (<0.60) mg/L FEU ABG pO2 (83-108) mmHg ABG O2 Saturation (94-97) % Sodium (137-145) mmol/L Potassium (3.5-5.1) mmol/L Carbon Dioxide (22-30) mmol/L BUN (7-17) mg/dL Creatinine (0.52-1.04) mg/dL Glucose (74-99) mg/dL POC Glucose (mg/dL) 232 H 328 H 214 H (75-99) mg/dL Lactate Dehydrogenase (313-618) U/L C-Reactive Protein (<1.0) mg/dL 09/22/20 09/23/20 09/23/20 Range/Units 23:40 05:05 05:05 WBC 13.6 H (3.8-10.6) k/uL RBC 3.14 L (3.80-5.40) m/uL Hgb 9.1 L (11.4-16.0) gm/dL Hct 26.2 L (34.0-46.0) % D-Dimer 9.91 H (<0.60) mg/L FEU ABG pO2 (83-108) mmHg ABG O2 Saturation (94-97) % Sodium (137-145) mmol/L Potassium (3.5-5.1) mmol/L Carbon Dioxide (22-30) mmol/L BUN (7-17) mg/dL Creatinine (0.52-1.04) mg/dL Glucose (74-99) mg/dL POC Glucose (mg/dL) 220 H (75-99) mg/dL Lactate Dehydrogenase (313-618) U/L C-Reactive Protein (<1.0) mg/dL 09/23/20 09/23/20 09/23/20 Range/Units 05:05 05:23 05:23 WBC (3.8-10.6) k/uL RBC (3.80-5.40) m/uL Hgb (11.4-16.0) gm/dL Hct (34.0-46.0) % D-Dimer (<0.60) mg/L FEU ABG pO2 53 L* (83-108) mmHg ABG O2 Saturation 86.8 L (94-97) % Sodium 136 L (137-145) mmol/L Potassium 3.0 L (3.5-5.1) mmol/L Carbon Dioxide 21 L (22-30) mmol/L BUN 49 H (7-17) mg/dL Creatinine 5.31 H (0.52-1.04) mg/dL Glucose 182 H (74-99) mg/dL POC Glucose (mg/dL) 194 H (75-99) mg/dL Lactate Dehydrogenase 1785 H (313-618) U/L C-Reactive Protein 1.1 H (<1.0) mg/dL
[2020-09-23] MEDS: SODIUM CHLORIDE 0.9% 500 ML 500 ML IV SCH (11:21)
[2020-09-23] MEDS: fentaNYL (PF). 1,000 MCG in SODIUM CHLORIDE 0.9% 80 ML IV SCH ×2 (12:00→21:21)
[2020-09-23 12:03] LABS: Glucose,Whole Blood 184 mg/dL (75-99)
--- NOTE | 2020-09-23 13:44 | P.PN ---
Subjective Progress Note Date: 09/23/20 Principal diagnosis: This is a 35-year-old female seen in consultation with acute kidney injury hemodialysis dependent. She was dialyzed this morning. She is in respiratory failure secondary to Coumadin 19 pneumonia and is at 40% FiO2. Blood pressure is somewhat low currently in the 80s. Documented blood pressures although are in the 120s to 150. 24-hour intake is documented at 1683 output is 35 mL. This morning earlier before dialysis her pH was 7.42 pCO2 36 and pO2 was 53 on 50% FiO2 She is known with diabetes Objective - Vital Signs Vital signs: Vital Signs Temp 98.4 F 09/23/20 12:00 Pulse 68 09/23/20 12:00 Resp 34 H 09/23/20 12:00 BP 154/67 09/23/20 11:29 Pulse Ox 87 L 09/23/20 12:00 Intake & Output 09/22/20 09/23/20 09/23/20 18:59 06:59 18:59 Intake Total 622 1061 715.972 Output Total 10 25 2500 Balance 612 1036 -1784.028 Weight 119.975 kg 121 kg Intake: IV 253 276 138 0.9 Normal Saline @ KVO 220 240 120 Pressure Bag 33 36 18 Intake, IV Titration 200 187.972 Amount fentaNYL (PF). 1,000 mcg 100 87.972 In Sodium Chloride 0.9% 80 ml @ Per Protocol IV . Q0M [facility] Rx#:[id number] propofoL 1,000 mg In 100 100 Empty Bag 1 bag @ Titrate IV .Q0M [facility] Rx#: [id number] Tube Feeding 279 495 270 Other 90 90 120 Output: Urine 10 25 0 Hemodialysis 2500 Other: Voiding Method Indwelling Catheter Indwelling Catheter Indwelling Catheter ABP, PAP, CO, CI - Last Documented Arterial Blood Pressure 131/55 On examination she is a sedated obtunded HEENT exam difficult to examine. No facial asymmetry noted Lungs are clear to auscultation fair air entry bilaterally Heart sounds are unremarkable for any murmur rub gallop Abdomen soft Extreme exam was mild edema Neurologically obtunded - Labs CBC & Chem 7: 09/23/20 05:05 09/23/20 05:05 Labs: Abnormal Lab Results - Last 24 Hours (Table) 09/22/20 09/22/20 09/22/20 Range/Units 17:07 20:15 23:40 WBC (3.8-10.6) k/uL RBC (3.80-5.40) m/uL Hgb (11.4-16.0) gm/dL Hct (34.0-46.0) % D-Dimer (<0.60) mg/L FEU ABG pO2 (83-108) mmHg ABG O2 Saturation (94-97) % Sodium (137-145) mmol/L Potassium (3.5-5.1) mmol/L Carbon Dioxide (22-30) mmol/L BUN (7-17) mg/dL Creatinine (0.52-1.04) mg/dL Glucose (74-99) mg/dL POC Glucose (mg/dL) 328 H 214 H 220 H (75-99) mg/dL Lactate Dehydrogenase (313-618) U/L C-Reactive Protein (<1.0) mg/dL 09/23/20 09/23/20 09/23/20 Range/Units 05:05 05:05 05:05 WBC 13.6 H (3.8-10.6) k/uL RBC 3.14 L (3.80-5.40) m/uL Hgb 9.1 L (11.4-16.0) gm/dL Hct 26.2 L (34.0-46.0) % D-Dimer 9.91 H (<0.60) mg/L FEU ABG pO2 (83-108) mmHg ABG O2 Saturation (94-97) % Sodium 136 L (137-145) mmol/L Potassium 3.0 L (3.5-5.1) mmol/L Carbon Dioxide 21 L (22-30) mmol/L BUN 49 H (7-17) mg/dL Creatinine 5.31 H (0.52-1.04) mg/dL Glucose 182 H (74-99) mg/dL POC Glucose (mg/dL) (75-99) mg/dL Lactate Dehydrogenase 1785 H (313-618) U/L C-Reactive Protein 1.1 H (<1.0) mg/dL 09/23/20 09/23/20 09/23/20 Range/Units 05:23 05:23 12:02 WBC (3.8-10.6) k/uL RBC (3.80-5.40) m/uL Hgb (11.4-16.0) gm/dL Hct (34.0-46.0) % D-Dimer (<0.60) mg/L FEU ABG pO2 53 L* (83-108) mmHg ABG O2 Saturation 86.8 L (94-97) % Sodium (137-145) mmol/L Potassium (3.5-5.1) mmol/L Carbon Dioxide (22-30) mmol/L BUN (7-17) mg/dL Creatinine (0.52-1.04) mg/dL Glucose (74-99) mg/dL POC Glucose (mg/dL) 194 H 184 H (75-99) mg/dL Lactate Dehydrogenase (313-618) U/L C-Reactive Protein (<1.0) mg/dL Assessment and Plan Assessment: Impression 1. Acute kidney injury secondary to COVID-19 pneumonia, currently hemodialysis dependent and anuric, dialyzed this morning 2. Ventilator-dependent respiratory failure on 50% FiO2 3. Diabetes mellitus and obesity 4. Anemia hemoglobin is 9.1 5. Significant hypoxia this morning predialysis, pCO2 was 36 pO2 is 53 with a pH of 7.42 on blood gases 6. Mild hypokalemia secondary to low intake 7. Hypotension probably postdialysis worse Recommendation. 1. Support blood pressure with levo fed if necessary. 2. Redo blood gases 3. Hold metoprolol for blood pressure Lower than 110 systolic
[2020-09-23 16:16] LABS: ABG Base Excess -4.6 mmol/L; ABG HCO3 21 mmol/L (21-25); ABG Oxygen Saturation 82.6 % (94-97); ABG PCO2 37 mmHg (35-45); ABG PH 7.36 (7.35-7.45); ABG TCO2 22 mmol/L (19-24)
[2020-09-23 16:17] LABS: ABG PO2 51 mmHg (83-108)
[2020-09-23] MEDS: CISATRACURIUM 200 MG in SODIUM CHLORIDE 0.9% 180 ML IV SCH (17:00)
[2020-09-23] MEDS: INSULIN DETEMIR (LEVEMIR) 100 UNIT/ML SYR SQ SCH (21:59)
[2020-09-23] MEDS: NOREPINEPHRINE 8 MG in SODIUM CHLORIDE 0.9% 250 ML IV SCH (22:03)
[2020-09-23 23:16] LABS: Glucose,Whole Blood 296 mg/dL (75-99)
[2020-09-24] MEDS: fentaNYL (PF). 1,000 MCG in SODIUM CHLORIDE 0.9% 80 ML IV SCH ×6 (03:44→22:47)
[2020-09-24 04:41] LABS: ABG Base Excess -4.8 mmol/L; ABG HCO3 21 mmol/L (21-25); ABG Oxygen Saturation 79.6 % (94-97); ABG PCO2 43 mmHg (35-45); ABG PH 7.31 (7.35-7.45); ABG TCO2 23 mmol/L (19-24)
[2020-09-24 05:01] LABS: Basophils % (A) 0 %; Eosinophils # (A) 0.2 k/uL (0-0.7); Eosinophils % (A) 1 %; HCT 28.8 % (34.0-46.0); HGB 9.8 gm/dL (11.4-16.0); Lymphocytes # (A) 1.7 k/uL (1.0-4.8); Lymphocytes % (A) 13 %; MCH 29.1 pg (25.0-35.0); MCV 85.5 fL (80.0-100.0); Mean Platelet Volume 9.7; Monocytes # (A) 0.5 k/uL (0-1.0); Monocytes % (A) 4 %; Neutrophils # (A) 9.9 k/uL (1.3-7.7); Neutrophils % (A) 80 %; Platelet Count 161 k/uL (150-450); Poikilocytosis Slight; RBC 3.37 m/uL (3.80-5.40); RDW 15.9 % (11.5-15.5); WBC 12.5 k/uL (3.8-10.6)
[2020-09-24 05:24] LABS: Albumin 2.5 g/dL (3.5-5.0); C Reactive Protein 2.8 mg/dL (<1.0); Calcium 8.7 mg/dL (8.4-10.2); Potassium 3.4 mmol/L (3.5-5.1); Total Bilirubin 0.2 mg/dL (0.2-1.3)
[2020-09-24 05:33] LABS: ABG PO2 49 mmHg (83-108); Allen Test Performed? no
[2020-09-24 06:19] LABS: Glucose,Whole Blood 328 mg/dL (75-99)
--- NOTE | 2020-09-24 06:23 | XR ---
EXAMINATION TYPE: XR chest 1V portable DATE OF EXAM: 09/24/2020 CLINICAL HISTORY: Difficulty breathing and covid progress study. TECHNIQUE: Single AP portable semiupright view of the chest is obtained. COMPARISON: Chest x-ray from one day earlier and older studies FINDINGS: Stable tracheostomy tube. Stable right internal jugular large bore catheter. Worsening bilateral multifocal and confluent opacities redemonstrated. Cardiac silhouette size stable and mildly enlarged. Osseous structures are intact. IMPRESSION: Bilateral multifocal and confluent opacities consistent with covid-19 infection and/or AR DS is redemonstrated. Interval progression or worsening from one day earlier noted.
[2020-09-24] MEDS: INSULIN ASPART (NovoLOG) 100 UNIT/ML VIAL SQ SCH ×7 (06:30→23:31)
[2020-09-24] MEDS: NOREPINEPHRINE 8 MG in SODIUM CHLORIDE 0.9% 250 ML IV SCH (07:59)
[2020-09-24] MEDS: ALBUTEROL HFA INHALER INHALATION SCH ×4 (08:12→19:20)
[2020-09-24] MEDS: SYMBICORT 160-4.5 MCG INHALER INHALATION SCH ×2 (08:13→19:20)
[2020-09-24] MEDS: CHLORHEXIDINE GLUCONATE 15 ML CUP MUCOUS MEM SCH ×2 (08:21→21:47)
[2020-09-24] MEDS: METOPROLOL TARTRATE 25 MG TAB PO SCH ×2 (08:21→21:48)
[2020-09-24] MEDS: ENOXAPARIN 60 MG/0.6 ML SYRINGE SQ SCH ×2 (08:22→21:45)
[2020-09-24] MEDS: ASCORBIC ACID 500 MG TAB PO SCH ×2 (08:22→21:48)
[2020-09-24] MEDS: DEXAMETHASONE SOD PHOSPHATE 10 MG/ML 1 ML VIAL IV SCH (08:22)
[2020-09-24] MEDS: PANTOPRAZOLE 40 MG/10 ML VIAL IVP SCH (08:22)
[2020-09-24] MEDS: CHOLECALCIFEROL 25 MCG (1000 IU) TABLET PO SCH (08:22)
[2020-09-24] MEDS: SODIUM BICARBONATE TAB 650 MG TAB PO SCH ×3 (08:22→21:48)
[2020-09-24] MEDS: ZINC SULFATE 220 MG CAP PO SCH (08:22)
[2020-09-24] MEDS: SODIUM CHLORIDE 0.9% 500 ML 500 ML IV SCH (11:10)
[2020-09-24 11:41] LABS: Glucose,Whole Blood 409 mg/dL (75-99)
--- NOTE | 2020-09-24 11:54 | P.PN ---
Subjective Progress Note Date: 09/24/20 Principal diagnosis: This is a 35-year-old female seen in consultation with acute kidney injury hemodialysis dependent, etiology is Covid. She was dialyzed last on 09/23/2020 yesterday. Continues to make almost no urine She is in respiratory failure secondary to Covid 19 pneumonia and is at 50% FiO2. Blood pressure is in the 120s to 160s, afebrile heart rate in the 70s to 90 She is known with diabetes Objective - Vital Signs Vital signs: Vital Signs Temp 98.7 F 09/24/20 08:00 Pulse 79 09/24/20 11:00 Resp 29 H 09/24/20 11:00 BP 142/70 09/24/20 11:00 Pulse Ox 94 L 09/24/20 11:00 Intake & Output 09/23/20 09/24/20 09/24/20 18:59 06:59 18:59 Intake Total 3404.235 8852.729 468.957 Output Total 2500 25 6 Balance -9830.651 6997.729 462.957 Weight 121.3 kg Intake: IV 276 276 115 0.9 Normal Saline @ KVO 240 240 100 Pressure Bag 36 36 15 Intake, IV Titration 387.972 513.729 143.957 Amount Norepinephrine 8 mg In 10.830 Sodium Chloride 0.9% 250 ml @ 0.05 MCG/KG/MIN 9. 699 mls/hr IV .Q24H [facility] Rx#:[id number] fentaNYL (PF). 1,000 mcg 87.972 222.374 33.127 In Sodium Chloride 0.9% 80 ml @ Per Protocol IV . Q0M [facility] Rx#:[id number] propofoL 1,000 mg In 300 291.355 100 Empty Bag 1 bag @ Titrate IV .Q0M [facility] Rx#: [id number] Tube Feeding 540 360 180 Other 150 60 30 Output: Urine 0 25 6 Hemodialysis 2500 Other: Voiding Method Indwelling Catheter Indwelling Catheter Indwelling Catheter ABP, PAP, CO, CI - Last Documented Arterial Blood Pressure 129/64 Patient was not examined, seen from the doorway and discussed with the nurse She seems to have difficulty in edema, remains on 50% FiO2. Her eyes are open and she is looking around. Supposedly not responding to She has loose stool and has a rectal tube - Labs CBC & Chem 7: 09/24/20 04:50 09/24/20 04:50 Labs: Abnormal Lab Results - Last 24 Hours (Table) 09/23/20 09/23/20 09/23/20 Range/Units 12:02 16:13 23:13 WBC (3.8-10.6) k/uL RBC (3.80-5.40) m/uL Hgb (11.4-16.0) gm/dL Hct (34.0-46.0) % RDW (11.5-15.5) % Neutrophils # (1.3-7.7) k/uL D-Dimer (<0.60) mg/L FEU ABG pH (7.35-7.45) ABG pO2 51 L* (83-108) mmHg ABG O2 Saturation 82.6 L (94-97) % Sodium (137-145) mmol/L Potassium (3.5-5.1) mmol/L Carbon Dioxide (22-30) mmol/L BUN (7-17) mg/dL Creatinine (0.52-1.04) mg/dL Glucose (74-99) mg/dL POC Glucose (mg/dL) 184 H 296 H (75-99) mg/dL Lactate Dehydrogenase (313-618) U/L C-Reactive Protein (<1.0) mg/dL Total Protein (6.3-8.2) g/dL Albumin (3.5-5.0) g/dL 09/24/20 09/24/20 09/24/20 Range/Units 04:39 04:50 04:50 WBC 12.5 H (3.8-10.6) k/uL RBC 3.37 L (3.80-5.40) m/uL Hgb 9.8 L (11.4-16.0) gm/dL Hct 28.8 L (34.0-46.0) % RDW 15.9 H (11.5-15.5) % Neutrophils # 9.9 H (1.3-7.7) k/uL D-Dimer (<0.60) mg/L FEU ABG pH 7.31 L (7.35-7.45) ABG pO2 49 L* (83-108) mmHg ABG O2 Saturation 79.6 L (94-97) % Sodium 132 L (137-145) mmol/L Potassium 3.4 L (3.5-5.1) mmol/L Carbon Dioxide 20 L (22-30) mmol/L BUN 48 H (7-17) mg/dL Creatinine 4.67 H (0.52-1.04) mg/dL Glucose 296 H (74-99) mg/dL POC Glucose (mg/dL) (75-99) mg/dL Lactate Dehydrogenase 2217 H (313-618) U/L C-Reactive Protein 2.8 H (<1.0) mg/dL Total Protein 5.0 L (6.3-8.2) g/dL Albumin 2.5 L (3.5-5.0) g/dL 09/24/20 09/24/20 09/24/20 Range/Units 04:50 06:17 11:40 WBC (3.8-10.6) k/uL RBC (3.80-5.40) m/uL Hgb (11.4-16.0) gm/dL Hct (34.0-46.0) % RDW (11.5-15.5) % Neutrophils # (1.3-7.7) k/uL D-Dimer 13.32 H (<0.60) mg/L FEU ABG pH (7.35-7.45) ABG pO2 (83-108) mmHg ABG O2 Saturation (94-97) % Sodium (137-145) mmol/L Potassium (3.5-5.1) mmol/L Carbon Dioxide (22-30) mmol/L BUN (7-17) mg/dL Creatinine (0.52-1.04) mg/dL Glucose (74-99) mg/dL POC Glucose (mg/dL) 328 H 409 H (75-99) mg/dL Lactate Dehydrogenase (313-618) U/L C-Reactive Protein (<1.0) mg/dL Total Protein (6.3-8.2) g/dL Albumin (3.5-5.0) g/dL Assessment and Plan Assessment: Impression 1. Acute kidney injury secondary to COVID-19 pneumonia, currently hemodialysis dependent and anuric, dialyzed 09/23/2020, ultrafiltrate 2500 mL 2. Ventilator-dependent respiratory failure on 50% FiO2 3. Diabetes mellitus and obesity 4. Anemia hemoglobin is 9.1 > 10.8 5. Significant hypoxia this morning predialysis, pO2 is 49 on 50% and her PEEP was increased. It is 7.31 and pCO2 is 43 6. Mild hypokalemia dialysis related as well as low intake, potassium is 3.4 7. Edema. Recommendation. 1. Will plan to dialyze her tomorrow and take off about 3 L 2. Redo blood gases 3. Hold metoprolol for blood pressure Lower than 110 systolic
[2020-09-24] MEDS ORDERED: Potassium Replacement Protocol 1 EACH MISC MISCELLANE PRN (11:55)
[2020-09-24] MEDS ORDERED: POTASSIUM BICARBONATE/CIT AC 20 MEQ TABLET.EFF NG-TUBE SCH (12:00)
[2020-09-24 12:06] LABS: ABG Base Excess -7.9 mmol/L; ABG HCO3 19 mmol/L (21-25); ABG Oxygen Saturation 94.9 % (94-97); ABG PCO2 41 mmHg (35-45); ABG PH 7.27 (7.35-7.45); ABG PO2 83 mmHg (83-108); ABG TCO2 20 mmol/L (19-24); Allen Test Performed? Yes
--- NOTE | 2020-09-24 12:23 | P.PN ---
Subjective Progress Note Date: 09/24/20 Principal diagnosis: Acute hypoxemic respiratory failure secondary COVID-19 pneumonia, DKA This is a 55-year-old -[place] female with history of type 2 diabetes, admitted today through the emergency room with a few days' history of increased shortness of breath, cough, fever, chest x-ray in the ER showed bilateral infiltrates consistent with COVID-19 pneumonia in the patient had positive PCR for COVID-19 infection. Patient had significantly abnormal labs on admission, she had an extremely low bicarb, extremely low pH, and marginal oxygenation at best. Patient was admitted to the regular medical floor, and I happened to be rounding on that same floor were and I was notified about this patient having worsening respiratory distress. Evaluated the patient, clearly the patient has DKA and she clearly has acute hypoxic respiratory failure secondary to COVID-19 pneumonia. As soon as I laid eyes on the patient, recommended immediate transfer to the ICU. Patient was placed on BiPAP however she did not tolerate BiPAP well, and when I went back to evaluate the patient in the ICU, she was basically deteriorating, and she was using her accessory muscles, patient was in severe respiratory distress. Hence I recommended immediate intubation and placement on mechanical ventilation. Chest x-ray continued to show bilateral infiltrates consistent with worsening COVID-19 pneumonia ABG showed a pO2 of 59 pCO2 of 42 pH of 7.05 and this was on the 100% FiO2 20 of PEEP tidal volume of 375 rate of 36. Patient will be given more bicarb and she is already on a bica rb drip. She is receiving insulin and she is also receiving IV fluids in the form of 0.9 normal saline. Sugars were 384. Inflammatory markers were added to be extremely high, LDH 2048, and C-reactive protein of 8.7. D-dimer was borderline elevated at 1.84. On 09/12/2020 patient seen in follow-up in the intensive care unit, yesterday she was emergently transferred to the intensive care and intubated and placed on mechanical ventilator. She remains intubated, sedated on mechanical ventilator, currently on assist control mode of ventilation with a rate 36, tidal vital 375, FiO2 100% and PEEP of 20. This might blood gas reveals pO2 of 62, pCO2 40, pH of 7.35 this was done on FiO2 of 80%, her peak airway pressure is 35, in her plateau pressure is around 32. she is sedated on Diprivan and 60 mics per kilo per minute, 0.9 normal saline at 100 ML per hour, insulin drip is at 4 units per hour, and she has 5% dextrose with 3 units of bicarbonate at 100 ML per hour. Today's labs have been reviewed, showing white blood cell count 10.3, hemoglobin of 14.4, d-dimer has increased to 14.31, and her Lovenox was adjusted and increased to 50 mg twice daily, sodium is 137, potassium is 3.7, chloride is 112, CO2 is up to 21, BUN of 16 creatinine is 1.57, LDH is 2618, CRP is 18.2. Pro-Calcitonin level came back elevated at 3.53, suggesting possibility of bacterial infection She received a liter bolus yesterday after intubation. We will give the patient additional fluid boluses today. Sputum culture has been sent and is pending, blood cultures have been sent. Patient has been placed in prone position at 8:00 last night, and her oxygenation seems to be improved and she satting 97% on 100% FiO2 and subsequently FiO2 was dropped down to 80%, and PEEP is down to 18. She remains in prone positioning, tolerating it well, she is having low-grade fevers, she is in sinus mechanism with tachycardic on the monitor, not requiring any vasopressor support right now, will start tube feedi ngs today when the patient is placed back over in the supine position On 09/13/2020 patient seen in follow-up in intensive care unit, she remains proned, and at the time of our evaluation patient has already been prone for close to 16 hours and is about to be turned back on her spine. She tolerates prone position quite well, she remains intubated, paralyzed and sedated on mechanical ventilator, current vent settings are assist-control mode of ventilation with a rate of 36, tidal volume 375, FiO2 of 70% and PEEP of 18, this point his blood gases show pO2 of 82, pCO2 of 39, and pH of 7.19. She's currently on D5 W with 3 A of bicarbonate at 75 per hour, Diprivan is a 60 mics per kilo per minute, index is at 2 mics per kilo per minute, and insulin drip is at 6 units per hour, patient has not started tube feedings yet. She is in sinus mechanism, hemodynamically stable, not requiring any vasopressor support. Today's chest x-ray has been reviewed showing bilateral lung infiltrates that a ppear to be stable. Today's labs have been reviewed showing white blood cell count of 11.1, hemoglobin 13.2, d-dimer is pending, yesterday his d-dimer was 14.3, patient's Lovenox dose was increased to 50 mg every 24 hours. Her renal function continued to worsen, and her creatinine is up to 3.4 on today's labs, BUN is 24, were bicarb concentration is only 13 on today's labs, sodium is 137, potassium is 4.0. AST is up to 77, ALT and alk phos are within normal limits, yesterday set him inflammatory markers with showing up trending LDH at 2618, and CRP of 18.2. Her pro-calcitonin level was increased yesterday at 3.53 and we added empiric antibiotics in the form of Zosyn. Sputum culture has been sent and has shown no growth. Overnight patient remained oliguric, yesterday we gave her additional fluids, however did not improve her renal function and her kidney function continued to get worse. Nephrology consultation has been requested, she has only been producing urine in the order of 5-10 ML per hour, renal ultrasound has been obtained showing no evidence of hydronephrosis bilaterally. On 09/14/2020 patient seen in follow-up in intensive care unit, she remains intubated, sedated and paralyzed, currently on assist control mode of ventilation with a rate of 36, tidal vital 375, FiO2 of 60% and PEEP of 18. This morning's blood gas was reviewed showing pO2 of 60, pCO2 of 43, and pH of 7.32. This was done on FiO2 of 70%, her peak airway pressure is 40, plateau pressures 26. She is currently on D5 with 3 A of bicarbonate at 100 ML per hour, insulin drip is at 7 units per hour, fentanyl drip is a 0.5 mics per kilo per hour, Diprivan and is at 50 mics per kilo per minute, and index is at 2 mics per kilo per minute. She is tolerating tube feedings of vital high-protein at 27 with a goal 27 standard water flushes. Today's chest x-ray has not been completed yet, because the patient has been in prone position for last 16 hours. Patient tolerates prone in quite well, and her oxygenation improves when she is in prone position. However when she is turned over in the supine position to complete chest x-rays and ADL's, patient's O2 sat drops down to low 80s and her FiO2 requirement increases at that time. Today's labs have been reviewed, and there has been further worsening of her renal function, and patient has made almost no urine overnight. Her BUN is 33, and creatinine is 4.87, nephrology is following, her renal ultrasound showed no evidence of hydronephrosis. Her urinalysis showed possibility of urinary tract infection, and patient has been started on cefepime. Urine culture is pending at this time, blood and sputum cultures have been negative. No fevers overnight, she's not requiring any vasopressor support. On 09/15/2020 patient seen in follow-up in intensive care unit, she remains intubated, sedated and paralyzed on assist-control mode of ventilation with a rate of 36, tidal vital 375, FiO2 100% and PEEP of 18, this morning's blood gas reviewed showing pO2 of 58, pCO2 of 45, and pH is 7.35, this was done on FiO2 of 100%. Her peak airway pressures 44, plateau pressures 38, she is on 0.9 normal saline at 50 ML per hour, Diprivan is a 40 mics per kilo per minute, Nimbex drip is a 2 mics per kilo per minute, and fentanyl drip at 0.5 mics per kilo per hour, she is tolerating tube feedings with vital high-protein is 27 with a goal of 27 standard water flushes. She is in sinus mechanism with a rate of 73, she is hemodynamically stable and not requiring any vasopressors. Today's chest x- ray shows ARDS, bilateral airspace opacities, no significant pleural effusion and no pneumothorax. Today's labs have been reviewed, white blood cell count is 9.9, hemoglobin is 11.3, sodium is 134, respiratory electrolytes were within normal limits, and there has been further worsening of her renal function with BUN of 34, creatinine is 4.78, her urine output has remained very poor. Last night she had her first hemodialysis session and no fluid was removed, this morning she is having another hemodialysis treatments and the goal is to remove half a liter of fluid. Her sputum, blood and urine cultures remained negative thus far, patient's pro-calcitonin level came back significantly elevated at 23.5 suggesting evidence of bacterial infection. Patient remains on cefepime for antibiotic coverage, she also remains on Decadron milligrams twice daily, and Lovenox is 50 mg every 24 hours. The patient is seen today 09/16/2020 in follow-up in the intensive care unit. She remains intubated on the mechanical ventilator. Current settings assist- control at a rate of 36, tidal volume 3 or 75, FiO2 100% and a PEEP of 18. Morning blood gases reveal a pO2 of 61, pCO2 49, pH 7.32. Peak pressures of 48, plateau pressure 43. Chest x-ray continues to show evidence of ARDS, pulmonary edema, diffuse pneumonia. She was not proned last night. The plan is to receive hemodialysis again today. Ultrasound of the chest did not reveal any si gnificant fluid for thoracentesis. Sedated on propofol at 50 mcg/kg/m, fentanyl at 0.5 mcg/kg per hour, Nimbex at 3 mcg/kg/m. Insulin drip at 4 units per hour. She is being nourished with vital HPI at 36 ML's per hour. 0.9 normal saline at 60 ML's per hour. Blood, sputum and urine cultures reveal no growth. White count 11.2. Hemoglobin 11.0. Sodium 134. Potassium 3.4. Creatinine 4.44. G lucose 164. She remains in sinus rhythm. She is continued on Symbicort, albuterol. Antibiotics in the form of cefepime. Remains on Decadron, Lovenox, vitamin supplements. On 09/18/2020 patient seen in follow-up in the intensive care unit. She remains intubated, sedated and paralyzed on mechanical ventilator on assist control mode with a rate of 36, tidal volume 375, FiO2 of 60% and PEEP of 20, this might blood gas shows pO2 of 72, pCO2 38, and pH is 7.35, today's chest x-ray still showing bilateral airspace disease possibly slightly improved compared yesterday's chest x-ray. Patient is currently on multiple drips including 0.9 normal saline at 20 no per hour, Nimbex is at 3 mics per kilo per minute, Diprivan is at 50 mics per kilo per minute, fentanyl drip is at 1 phil per kilo per hour, insulin drip is at 4 units per hour, she is on tube feedings with vital high-protein at a rate of 10 with a goal of 36 and standard water flushes. Patient has been getting hemodialysis treatments, her last treatment was on 09/16/2020 with removal of 1.2 L of fluid. Today's labs have been reviewed, showing white blood cell count of 12.6, hemoglobin of 9.8, last d-dimer from yesterday was 6.83, and patient remains on Lovenox and 50 mg daily, sodium was 133, potassium is 3.2, chloride is 102, CO2 is 21, BUN of 35, creatinine is 4.12. Her last set of inflammatory markers was from yesterday showing improvement although LDH was still elevated at 1913, and CRP was 1.3. She remains on IV Decadron 6 mg twice daily, she is also on cefepime for empiric antibiotic coverage, and so far all her cultures including sputum blood and urine are negative. Patient has been tolerating prone positioning well, and she has been prone up to 16-20 hours on a daily basis. On 09/19/2020 patient seen in follow-up in intensive care unit, she remains sedated, paralyzed and trached to the ventilator currently on assist control mode of ventilation with a rate of 36, tidal volume is 375, FiO2 of 60% and PEEP of 20. This morning's blood gases show pO2 of 85, pCO2 37, and pH of 7.33, and this was done and FiO2 of 60%. She is status post tracheostomy and PEG tube placement yesterday on 09/18/2020, she is currently in supine position, and that she is having hemodialysis treatment. Yesterday 2-1/2 L of fluid was removed with hemodialysis, the goal to remove another 2 L of fluid with today's hemodial ysis treatments, today's chest x-ray shows bilateral multifocal and confluent opacities consistent with COVID-19 infection, and some improved aeration at the periphery of the left lung but worsening opacities throughout the right lung compared to one day earlier. Patient is currently on 0.9 normal seen at 20 ML per hour, Nimbex is at 1.5 mics per kilo per minute, Diprivan is a 50 mics per kilo per minute, we will send is currently off, fentanyl drip is at 1 phil per kilo per hour, and insulin is at 5 units per hour, tube feedings are on hold and are expected to be restarted later on today. His labs have been reviewed showing white blood cell count of 14.3, hemoglobin of 9.6, d-dimer is relatively stable at 6.48, sodium is 130, potassium is 3.5, CO2 of 18, and renal profile shows some improvement with BUN of 34, and creatinine is 3.81. Her inflammatory markers are improving, LDH today is 1686, and CRP is 1.1. Her blood sputum and urine cultures have shown no growth to date. Patient continues on cefepime, current dose Lovenox is 15 mg once daily adjusted for her renal function, and she continues on Decadron 6 mg twice daily. The patient is seen today on 09/20/2020 in follow-up in the intensive care unit. She remains on the mechanical ventilator. Current settings assist-control 36, tidal 5 375, FiO2 50% and a PEEP of 20. Arterial blood gases revealed a PaO2 of 74, pCO2 37, pH 7.37. She remains on fentanyl at 1 mcg/kg per hour. Propofol at 50 g per kilogram per minute. Nimbex is off since yesterday. Insulin drip currently on hold. She normally is receiving vital HPI at 10 MLS per hour with a goal of 27. She is status post tracheostomy and PEG tube placements on 09/18/2020. The plan is for permacath placement today. Chest x-ray continues to show stable diffuse bilateral interstitial and airspace disease with a small right effusion. Blood urine and sputum cultures had revealed no growth. White count 14.5. Hemoglobin 9.1. D-dimer 6.13. Sodium 133. Potassium 3.1. Creatinine 4.27. Glucose 128. LDH 1717. C-reactive protein 1.7. She remains on Decadron, Lovenox, vitamin supplements. Continued on bronchodilators. The patient is seen today 09/21/2020 in follow-up in the intensive care unit. She remains on the mechanical ventilator. Assist-control rate of 36, tidal ventricle 75, FiO2 50% and a PEEP of 20. Morning blood gases reveal a pO2 of 86, pCO2 35, pH 7.36. She remains sedated on propofol at 40 mcg/kg/m. Fentanyl drip at 1 mg/kg per hour. 0.9 normal saline at 20 ML's per hour. She is being nourished with vital HPI 21 ML's per hour which is goal. White count 13.3. Hemoglobin 8.7. Sodium 137. Potassium 3.6. BUN 34. Creatinine 4.21. Glucose 283. She did receive a permacath to the right internal jugular vein yesterday. Continues with hemodialysis. 2.5 L removed yesterday. Chest x-ray continues to revealed diffuse bilateral airspace disease. Unchanged compared to previous. She remains on albuterol, Symbicort, Decadron. Lovenox for DVT prophylaxis. The patient is seen today 09/22/2020 in follow-up in the intensive care unit. She remains on the mechanical ventilator. Current settings are assist-control mode at a rate of 36, tidal volume 375, FiO2 50% and a PEEP of 15. Morning blood gases reveal pO2 81, pCO2 33, pH 7.42. She remains sedated on propofol at 20 mcg/kg/m. Fentanyl at 0.5 mcg/kg per hour. 0.9 normal saline at 20 ML's per hour. She is being nourished with vital HP 21 mL per hour which is goal. Chest x-ray reveals diffuse bilateral airspace disease. Unchanged compared to previous. White count 16.5. Hemoglobin 8.9. Platelets 213. Sodium 134. Potassium 3.7. BUN 34. Creatinine 3.89. Glucose 286. No plans for dialysis today. She is continued on Decadron, Lovenox, vitamin supplements. The patient is seen today 09/23/2020 in follow-up in the intensive care unit. She remains on the mechanical ventilatorin assist control mode. Rate of 36. Tidal volume 375. FiO2 50%. PEEP of 10. Morning blood gases reveal a P O2 of 53, pCO2 36, pH 7.42. Sedated with propofol at 30 mcg/kg/m. On fentanyl at 0.5 mcg/kg per hour. 0.9 normal saline at KVO. Being nourished with vital HP at 45 ML's per hour which is goal. Chest x-ray continues to show bilateral multifocal confluent opacities consistent with COVID-19 infection. Currently receiving hemodialysis. Blood, sputum, urine cultures had revealed no growth. White count 13.6. Hemoglobin 9.1. D-dimer 9.91. Sodium 136. Potassium 3.0. Bicarb 21. BUN 49. Creatinine 5.31. Glucose 182. LDH 1785. C-reactive protein 1.1., Remains on Decadron, Lovenox, vitamin supplements. On Symbicort and albuterol. The patient is seen today 09/24/2020 in follow-up in the intensive care unit. She remains on the mechanical ventilator. Current mode assist control at a rate of 36, tidal volume 375, FiO2 50% and her PEEP was bumped back up to 20. She was having issues with hypoxemia. Earlier blood gases revealed a pO2 of 49, pCO2 43 and a pH of 7.31. Her saturations are currently in the low 90s. Her PEEP had previously been down to 14. She remains sedated on propofol 50 mcg/kg/m. Fentanyl at 2.25 mcg/kg per hour. Norepinephrine at 4.8 mcg/m. She's being nourished with vital HP at 45 ML's per hour which is goal. 0.9 normal saline at 20 ML's per hour. Chest x-ray continues to show bilateral multifocal and confluent opacities consistent with COVID-19 infection/ARDS. Interval progression compared to previous day. Blood, sputum, urine cultures revealed no growth. White count 12.5. Hemoglobin 9.8. D-dimer 13.3. Sodium 132. Potassium 3.4. Creatinine 4.67. Glucose 296. LDH 2217. C-reactive protein 2.8. Follow-up blood gases on the PEEP of 20 revealed a P O2 of 83, pCO2 41, pH 7.27 on 50% FiO2. Remains on Symbicort, albuterol, vitamin supplements. Lovenox is at 60 mg subcu every 12 hours. Decadron 6 mg IV daily. She is making very little urine. She had hemodialysis yesterday. The plan is for hemodialysis tomorrow with a goal of 3 L. Objective - Vital Signs Vital signs: Vital Signs Temp 98.7 F 09/24/20 08:00 Pulse 79 09/24/20 11:00 Resp 29 H 09/24/20 11:00 BP 142/70 09/24/20 11:00 Pulse Ox 94 L 09/24/20 11:00 Intake & Output 09/23/20 09/24/20 09/24/20 18:59 06:59 18:59 Intake Total 9186.767 3448.729 468.957 Output Total 2500 25 6 Balance -7737.516 7202.729 462.957 Weight 121.3 kg Intake: IV 276 276 115 0.9 Normal Saline @ KVO 240 240 100 Pressure Bag 36 36 15 Intake, IV Titration 387.972 513.729 143.957 Amount Norepinephrine 8 mg In 10.830 Sodium Chloride 0.9% 250 ml @ 0.05 MCG/KG/MIN 9. 699 mls/hr IV .Q24H [facility] Rx#:[id number] fentaNYL (PF). 1,000 mcg 87.972 222.374 33.127 In Sodium Chloride 0.9% 80 ml @ Per Protocol IV . Q0M [facility] Rx#:[id number] propofoL 1,000 mg In 300 291.355 100 Empty Bag 1 bag @ Titrate IV .Q0M [facility] Rx#: [id number] Tube Feeding 540 360 180 Other 150 60 30 Output: Urine 0 25 6 Hemodialysis 2500 Other: Voiding Method Indwelling Catheter Indwelling Catheter Indwelling Catheter ABP, PAP, CO, CI - Last Documented Arterial Blood Pressure 129/64 - Exam GENERAL EXAM: Sedated, 35-year-old female patient, on assist control mode of ventilation with FiO2 50 percent and PEEP of 20, with a pulse ox of 89% comfortable in no apparent distress. HEAD: Normocephalic/atraumatic. EYES: Normal reaction of pupils, equal size. Conjunctiva pink, sclera white. NOSE: Clear with pink turbinates. THROAT: No erythema or exudates. NECK: Right internal jugular hemodialysis catheter placed. Tracheostomy tube secured in place. No masses, no JVD, no thyroid enlargement, no adenopathy. CHEST: No chest wall deformity. Symmetrical expansion. LUNGS: Equal air entry with bilateral crackles CVS: Regular rate and rhythm, normal S1 and S2, no gallops, no murmurs, no rubs ABDOMEN: PEG tube exit site clean and dry. No hepatosplenomegaly, normal bowel sounds, no guarding or rigidity. EXTREMITIES: No clubbing, no edema, no cyanosis, 2+ pulses and upper and lower extremities. MUSCULOSKELETAL: Muscle strength and tone normal. SPINE: No scoliosis or deformity SKIN: No rashes CENTRAL NERVOUS SYSTEM: Sedated. No focal deficits, tone is normal in all 4 extremities. - Labs CBC & Chem 7: 09/24/20 04:50 09/24/20 04:50 Labs: Abnormal Lab Results - Last 24 Hours (Table) 09/23/20 09/23/20 09/24/20 Range/Units 16:13 23:13 04:39 WBC (3.8-10.6) k/uL RBC (3.80-5.40) m/uL Hgb (11.4-16.0) gm/dL Hct (34.0-46.0) % RDW (11.5-15.5) % Neutrophils # (1.3-7.7) k/uL D-Dimer (<0.60) mg/L FEU ABG pH 7.31 L (7.35-7.45) ABG pO2 51 L* 49 L* (83-108) mmHg ABG O2 Saturation 82.6 L 79.6 L (94-97) % Sodium (137-145) mmol/L Potassium (3.5-5.1) mmol/L Carbon Dioxide (22-30) mmol/L BUN (7-17) mg/dL Creatinine (0.52-1.04) mg/dL Glucose (74-99) mg/dL POC Glucose (mg/dL) 296 H (75-99) mg/dL Lactate Dehydrogenase (313-618) U/L C-Reactive Protein (<1.0) mg/dL Total Protein (6.3-8.2) g/dL Albumin (3.5-5.0) g/dL 09/24/20 09/24/20 09/24/20 Range/Units 04:50 04:50 04:50 WBC 12.5 H (3.8-10.6) k/uL RBC 3.37 L (3.80-5.40) m/uL Hgb 9.8 L (11.4-16.0) gm/dL Hct 28.8 L (34.0-46.0) % RDW 15.9 H (11.5-15.5) % Neutrophils # 9.9 H (1.3-7.7) k/uL D-Dimer 13.32 H (<0.60) mg/L FEU ABG pH (7.35-7.45) ABG pO2 (83-108) mmHg ABG O2 Saturation (94-97) % Sodium 132 L (137-145) mmol/L Potassium 3.4 L (3.5-5.1) mmol/L Carbon Dioxide 20 L (22-30) mmol/L BUN 48 H (7-17) mg/dL Creatinine 4.67 H (0.52-1.04) mg/dL Glucose 296 H (74-99) mg/dL POC Glucose (mg/dL) (75-99) mg/dL Lactate Dehydrogenase 2217 H (313-618) U/L C-Reactive Protein 2.8 H (<1.0) mg/dL Total Protein 5.0 L (6.3-8.2) g/dL Albumin 2.5 L (3.5-5.0) g/dL 09/24/20 09/24/20 Range/Units 06:17 11:40 WBC (3.8-10.6) k/uL RBC (3.80-5.40) m/uL Hgb (11.4-16.0) gm/dL Hct (34.0-46.0) % RDW (11.5-15.5) % Neutrophils # (1.3-7.7) k/uL D-Dimer (<0.60) mg/L FEU ABG pH (7.35-7.45) ABG pO2 (83-108) mmHg ABG O2 Saturation (94-97) % Sodium (137-145) mmol/L Potassium (3.5-5.1) mmol/L Carbon Dioxide (22-30) mmol/L BUN (7-17) mg/dL Creatinine (0.52-1.04) mg/dL Glucose (74-99) mg/dL POC Glucose (mg/dL) 328 H 409 H (75-99) mg/dL Lactate Dehydrogenase (313-618) U/L C-Reactive Protein (<1.0) mg/dL Total Protein (6.3-8.2) g/dL Albumin (3.5-5.0) g/dL Assessment and Plan Assessment: 1 Acute hypoxic respiratory failure secondary to COVID-19 pneumonia, transferred to the intensive care unit on 09/11/2020 and intubated and placed on mechanical ventilator on 09/11/2020. Patient received 1 dose of Remdesivir on 09/11/2020, however based on her quick progression of her hypoxic respiratory failure she received Tocilizumab 800 mg on 09/11/2020. Tracheostomy and PEG tube placed on 09/18/2020. 2 Acute kidney injury related to ATN, nephrology has been consulted, ultrasound of the kidneys showed no evidence of hydronephrosis. Patient was initiated on hemodialysis on 09/14/2020. Permacath placed 09/20/2020. 3 Acute diabetic ketoacidosis, resolved 4 Acute metabolic acidosis related to acute DKA, and acute kidney injury. Recovered with bicarbonate infusion 5 Increased d-dimer, related to COVID-19 pneumonia, currently on Lovenox 50 mg daily 6 Possible sepsis with increased pro-calcitonin suggesting presence of bacterial infection, cultures have been sent and all negative 7 Diabetes mellitus type 2 8 Morbid obesity with BMI 45.3 kg/m 9 Nonsmoker Plan: The patient was seen and evaluated by Dr. Issa Chest x-ray, ABGs and labs reviewed Patient had required going back up on the PEEP to 20 Improved gases and saturations. Continue Lovenox 60 mg every 12 hours Continue tube feedings as tolerated Continue current treatment plan We will continue to follow and make further recommendations based on her clinical status Critical care time 36 minutes I, the cosigning physician, performed a history & physical examination of the patient. Lungs sounds with crackles in the bilateral bases. Maintaining O2 saturations in the 90s on 50% FiO2 and a PEEP of 20 per the mechanical ventilator. I discussed the assessment and plan of care with my nurse practitioner, Kyara Concepcion. I attest to the above note as dictated by her.
--- NOTE | 2020-09-24 13:17 | P.PN ---
Subjective Progress Note Date: 09/24/20 HISTORY OF PRESENT ILLNESS 35-year-old female patient of Dr. Arroyo with past medical history of type 2 diabetes comes in with acute shortness of breath associated with high light s ugars. Patient on admission was found to have a fever of 101.5 pulse rate 125 respiratory rate 20. Blood pressure 132/106. On chest x-ray obtained in the ER suggestive of bilateral infiltrates concerning for call with pneumonia. COVID PCR was positive. On admissions patient had an ABG with a pH of 7.14 pCO2 of 20, pO2 of 59, bicarb of 7. Patient's blood sugar on admission was 424 on assessment today patient's blood work patient had a sodium 135 potassium 5.4 chloride 123 bicarb less than 5 and creatinine 0.73. D-dimer was elevated on admission patient 9 28 patient given 1 L of IV fluids followed by normal saline running at 200 mL/h. Patient was positive for acetone on admission. She will anion gap closed and was switched to D5NS. Insulin drip was continued during the night and was switched to patient's home medication this morning. One dose of remdesiver was ordered. Apparently around noon, A- team was called on the patient secondary to hypoxia patient's oxygen saturation dropped to the 70s and 80s on 100% nonrebreather. Patient was switched to BiPAP on 18/12 and is doing better o FiO2 of 80%. ABG was obtained and ph was 7. 14 pCO2 of 28 bicarb of 7 pO2 of 17. Patient noted to have uncompensated metabolic acidosis with compensated respiratory alkalosis. Stat dose of 1 amp bicarb was given and followed by sodium bicarbonate drip. Insulin drip restarted. Patient's initiated on dexamethasone 6 mg IV twice a day. Potassium phosphate ordered as phosphorus is low. Patient's repeat blood gases suggest a pH of 7.25, CO2 32 pO2 of 72 bicarb 14. I will not normal saline at 100 mL/h as patient's anion gap has increased. Patient given 1 dose of 2 mg of morphine with improvement in respiratory rate. One dose of Ativan 0.5 mg was given. Xanax 0.25 twice a day along with Ativan 0.5 IV every 6 hours ordered for the patient. Vitals were evaluated patient pulse 129 [id number]. She was moved to the ICU. Precedex drip was initiated. Lopressor was initiated at 25 twice a day. Metoprolol tartrate 5 mg IV every 6 hours. Systolic blood pressure more than 160. Started chest x-ray was obtained and suggest stable bilateral consolidation suggestive of COVID-19 pneumonia. 09/12 patient is seen in the ICU is currently mechanically ventilated and sedated on vent settings of respiratory rate 36, tidal volume 375 FiO2 80% PEEP of 18.. Vital signs reviewed patient had a temp of 100.4 pulse 150 respiratory rate 36 oxygen saturation 95% on 80% on fio2 .'s labs are reviewed which patient had a d-dimer 1.84 that is increased to 14.3. Arterial Blood gas suggest ph 7.35, CO2 40, po2 62, . Her BMP suggest a sodium 135 potassium 3.7 chloride 112 bicarb 21 creatinine 1.57 for calcitonin is 3.5 CRP is increased from 8.78.2 LDH is increased to 2614. Patient remains on Pneumovax, propofol drip. Lovenox increased to 50 subcu twice a day. Patient received 2 L of IV fluids. Continue IV fluids at 100 mL/h. Bicarb drip discontinued patient initiated on Zosyn 3.375 every 8 hours. Continue insulin drip at 4 units per hour. Patient is currently in prone positioning 09/13: Patient evaluated in the ICU remains on Ventilation continues to be sedated, in prone position. Vent settings are respiratory rate 36, tidal vital 375, FiO2 70% PEEP of 18. ABG shows pO2 of 82, PCO2 of 39, pH is 7.19. Latest labs show WBC 11.1, hemoglobin 13.2, d-dimer still pending, but yesterday was up to 14.3. Creatinine up to 3.4, BUN 24 sodium 137, potassium 4.0. Patient's urine output has been low, nephrology on consult. Bicarb drip increased to 100 miles an hour, receiving another liter of normal saline, she did have a ultrasound that showed unremarkable bilateral kidneys. Repeat chest x-ray showed bilateral lung infiltrates that are stable. Anion gap has closed, will start Lantus 10 units at at bedtime Novolog every 6 hours. 09/14: Patient is seen in the ICU, still currently mechanically ventilated and sedated. She continues in the prone position. Her oxygen quickly drops if she is not in prone. Patient's kidney function has worsened. Laboratory values show creatinine of 4.87, BUN 33, LDH 2191, C-reactive protein 2.7. ABG shows pH 7.32, pO2 of 60, pCO2 43. Patient is making almost no urine overnight. Nephrology is following patient continues on cefepime for urinary tract infection, culture is still pending. Vascular has been consulted for placement of temporary hemodialysis catheter for plans for dialysis. 09/15: Patient evaluated in the ICU, continues to be mechanically ventilated and sedated on assist control ventilation rate of 36, tidal volume 375, FiO2 100% and PEEP of 18. ABG today shows pO2 58, pCO2 of 45, and pH 7.35. She continues on tube feedings. Yesterday patient underwent ultrasound-guided right internal jugular non-tunneled hemodialysis catheter placement. Patient underwent hemodialysis treatment last night and plans have another hemodialysis treatment today. She continues to make almost no urine. She continues on cefepime for antibiotic coverage, and continues on Decadron and Lovenox. 09/16: Patient seen on follow-up remains in the ICU mechanically ventilated and sedated. She continues on assist control rate of 36, tidal volume 375, FiO2 100% and PEEP of 20. PEEP had to be increased due to patient had to be in supine position for dialysis, will go back to prone position once dialysis is complete. ABG shows pH 7.32, pCO2 49, PaO2 61. Laboratory values showed WBC 11.2, hemoglobin 11, sodium 134, creatinine 4.44, BUN 38. Urine culture shows no growth, blood cultures show no growth to date. Repeat chest x-ray shows bilateral pleural effusions, correlate for ARDS, pulmonary edema, diffuse pneumonia, findings are stable from last exam. Patient does not require any pressors, blood pressure 133/57, heart rate 78. 5/16: Patient was evaluated in the ICU today for follow-up. She continues to be intubated and on mechanical ventilation. Current vent settings are tidal volume 375, FiO2 100% and PEEP of 20. ABG shows pH 7.37, pCO2 40, pO2 102. She continues with intermittent prone positioning. Patient continues to have almost no urine output, maintained on dialysis. Patient received dialysis yesterday without complication. Laboratory values revealed WBC 10.3, hemoglobin 10.4, sodium 132, potassium 3.1, BUN 33, creatinine 4.29, LDH 1913, C-reactive protein 1.3. Urine and sputum cultures are negative, blood cultures show no growth to date. Consult placed to dietary to start TPN[ ] 09/18: She remains in the intensive care unit intubated and on mechanical ventilation with tidal volume 375, FiO2 60 and PEEP of 20. Patient is being prone to daily at approximately 16 hours per day. Pulmonary medicine has added in Dr. Zhang to do PEG tube and trach today. Patient is not on vasopressors. Repeat blood work reveals WBC 12.6, hemoglobin 9.8, platelet count 212. Sodium 133, potassium 3.2, chloride 102, CO2 21, BUN 35 and creatinine 4.12. Blood sugar 126. Patient underwent hemodialysis yesterday with removal of 2 L and is scheduled again today with goal of 2-3 L and is scheduled again tomorrow. 09/19: She is scheduled for hemodialysis today and is off fentanyl temporarily. Patient is status post trach and PEG tube yesterday. And she remains on mechanical ventilation. Pulse ox 93-95%. She has been afebrile, heart rate 64, respiratory rate 36, blood pressure 115/50. Fentanyl is off to improve blood pressure for hemodialysis which is scheduled for today. Contacted vascular surgery about permanent hemodialysis catheter. Repeat blood work reveals WBC 14.3, hemoglobin 9.6, platelet count 200. D-dimer 6.48. LDH 1686. C-reactive protein 1.1. BUN 34 creatinine 3.81. Sodium 130, potassium 3.5, chloride 101, CO2 18. Blood sugars running between 101 198. Plan is to wean off Pneumovax today. Patient remains on insulin drip. Repeat chest x-ray reveals bilateral multifocal confluent opacities consistent with COVID-19. Some improved aeratio n periphery of the left lung and worsening opacities throughout the right lung. 09/20: She remains in the intensive care unit on mechanical ventilation. She has been afebrile, heart rate 65, respiratory rate 37, blood pressure 121/70, pulse ox 91-99%. Repeat blood work reveals WBC 14.5, hemoglobin 9.1, platelet count 216. D-dimer 6.13. Sodium 133, potassium 3.1, chloride 102, CO2 18, BUN 35 and creatinine 4.27. Blood sugars running between 128 and 143. LDH 1717. C- reactive protein 1.7. Patient remains on insulin drip which will be transitioned to NovoLog scale every 6 hours. Patient is scheduled for permanent hemodialysis catheter placement today with vascular surgery. Repeat chest x-ray reveals stable diffuse bilateral interstitial and airspace disease. Possible small right effusion. His work is following [facility] Do not anticipate discharge until next week. 09/21: Patient is undergoing hemodialysis. She remains on mechanical ventilation with tidal volume 375, FiO2 down to 45 and PEEP was decreased to 15. Patient is continued on propofol, fentanyl drips. She is on tube feedings at goal. Patient was taken off insulin drip yesterday and on scale only but blood sugars are running in the 200s, Levemir scheduled at bedtime will be added. Other blood work reveals WBC 13.3, hemoglobin 8.7, platelet count 192. Sodium 137, potassium 3.6, chloride 107, CO2 18, BUN 34 and creatinine 4.21. Repeat chest x-ray is stable. 09/22: She remains in the intensive care on mechanical ventilation with tidal volume 375, FiO2 of 50 and PEEP of 10. Pulse ox is running 96%. She is afebrile, heart rate in the 50s, respiratory rate 36, blood pressure 100/64. Repeat blood work reveals WBC 16.5, hemoglobin 8.9, platelet count 213. Sodium 134, potassium 3.7, chloride 103, CO2 21, BUN 34 and creatinine 3.89. Blood sugars running in the 200s to 324. Levemir increased to 16 units at bedtime and continue NovoLog scale every 6 hours. Patient is on tube feedings at goal. She has a Haley catheter in with a scant amount of dark/brown urine. Fecal management system is in place. Repeat chest x-ray reveals diffuse bilateral airspace infiltrates persist unchanged. Patient is scheduled for hemodialysis tomorrow morning on Friday. 09/23: Patient remains on mechanical ventilation with tidal volume 3.75, FiO2 50 and PEEP of 10. document control assistant sinus rhythm. She has no urine output. Fecal management system is in place. She is undergoing dialysis at this time with plan for removal of 2-1/2 L. She has been afebrile, heart rate in the 50s, respiratory rate 36, blood pressure 108/76 and pulse ox 89%. WBC 13.6, hemoglobin 9.1, platelet count 194. Sodium 136, potassium 3.0 and was replaced, chloride 106, CO2 21, BUN 49 creatinine 5.31. Blood sugars are running between 182 and this morning 194. Patient was still in the 200s and 300s. Levemir last evening was increased to 16 units. Patient remains on propofol and fentanyl drips. Lovenox was increased to 60 mg twice daily. 09/24: PEEP was increased today to 20, tidal volume is at 375 and FiO2 of 50%. Patient has been afebrile. She has been started on levo fed. Repeat chest x- ray reveals bilateral multifocal confluent opacities consistent with Covid 19 or ARDS redemonstrated. Nephrology will plan dialysis for tomorrow for 3 L. Patient remains on propofol fentanyl and Nimbex. WBC 12.5, hemoglobin 9.8, platelet count 161. D-dimer 13.3. Sodium 132, potassium 3.4, chloride 102, CO2 20, BUN 48 and creatinine 4.67. Blood sugars extremely elevated to 96-409. LDH 2217. REVIEW OF SYSTEMS Unable to obtain due to intubation. PHYSICAL EXAMINATION Gen: This is is a 35-year-old black female, patient is intubated and on mechanical ventilation, appears to be comfortable, undergoing dialysis. HEENT: Head is atraumatic, normocephalic. Pupils equal, round. Sclerae is anicteric. Tracheostomy tube in place. NECK: Supple. No JVD. No lymphadenopathy. No thyromegaly. LUNGS: Scattered bilateral rhonchi. No intercostal retractions. HEART: Regular rate and rhythm. No murmur. ABDOMEN: Soft. Bowel sounds are present. No masses. No tenderness. PEG tube in place, area clean and dry. EXTREMITIES: No pedal edema. No calf tenderness. Dorsalis pedis +2 bilaterally. NEUROLOGICAL: Patient is awake, eyes are open. ASSESSMENT AND PLAN 1. Acute hypoxic respiratory failure secondary to Covid 19 pneumonia and possible bacterial pneumonia. Patient was intubated on September 11. She is status post 1 dose of Remdesivir and 1 dose of Tocilizumab. Continue Ventolin inhaler 4 times daily, Symbicort twice daily, Decadron 6 mg IV twice daily, Lovenox 60 mg subcu twice daily, supplements. Status post PEG tube and trach. 2. Acute diabetic ketoacidosis secondary to Covid 19 pneumonia, uncontrolled with hyperglycemia. Levemir increased to 20 units twice daily, scheduled NovoLog 5 units every 6 hours and NovoLog scale. 3. Metabolic encephalopathy secondary to Covid 19 and DKA. 4. Sepsis secondary to Covid 19 pneumonia. Continue as in #1. 5. Acute metabolic acidosis secondary to acute DKA, Covid 19 and acute kidney injury. 6. Diabetes mellitus type 2 uncontrolled with A1c 13.6. Continue Levemir and NovoLog scale every 6 hours. 7. Hypophosphatemia status post replacement. 8. Hyperkalemia secondary to DKA, resolved. 9. Sinus tachycardia secondary to sepsis, volume deficiency.Continue Lopressor 25 mg twice daily. 10. Acute kidney injury secondary to ATN secondary to Covid 19 and DKA. Patient continued on hemodialysis. Permanent dialysis catheter placed. 11. Hypertension. 12. Morbid obesity with BMI of 53. 13. DVT prophylaxis. Lovenox. 14. GI prophylaxis. Protonix 40 mg IV push daily. CODE STATUS: Full code Prognosis guarded. Impression and plan of care have been directed as dictated by the signing physician. Kimberly Boswell nurse practitioner acting as scribe for signing physician. Objective - Vital Signs Vital signs: Vital Signs Temp 98.7 F 09/24/20 08:00 Pulse 78 09/24/20 10:00 Resp 25 H 09/24/20 10:00 BP 94/42 09/24/20 08:00 Pulse Ox 91 L 09/24/20 10:00 Intake & Output 09/23/20 09/24/20 09/24/20 18:59 06:59 18:59 Intake Total 6044.534 8644.729 392.713 Output Total 2500 25 3 Balance -5252.172 6844.729 389.713 Weight 121.3 kg Intake: IV 276 276 92 0.9 Normal Saline @ KVO 240 240 80 Pressure Bag 36 36 12 Intake, IV Titration 387.972 513.729 135.713 Amount Norepinephrine 8 mg In 2.586 Sodium Chloride 0.9% 250 ml @ 0.05 MCG/KG/MIN 9. 699 mls/hr IV .Q24H [facility] Rx#:[id number] fentaNYL (PF). 1,000 mcg 87.972 222.374 33.127 In Sodium Chloride 0.9% 80 ml @ Per Protocol IV . Q0M [facility] Rx#:[id number] propofoL 1,000 mg In 300 291.355 100 Empty Bag 1 bag @ Titrate IV .Q0M [facility] Rx#: [id number] Tube Feeding 540 360 135 Other 150 60 30 Output: Urine 0 25 3 Hemodialysis 2500 Other: Voiding Method Indwelling Catheter Indwelling Catheter Indwelling Catheter ABP, PAP, CO, CI - Last Documented Arterial Blood Pressure 162/78 - Labs CBC & Chem 7: 09/24/20 04:50 09/24/20 04:50 Labs: Abnormal Lab Results - Last 24 Hours (Table) 09/23/20 09/23/20 09/23/20 Range/Units 12:02 16:13 23:13 WBC (3.8-10.6) k/uL RBC (3.80-5.40) m/uL Hgb (11.4-16.0) gm/dL Hct (34.0-46.0) % RDW (11.5-15.5) % Neutrophils # (1.3-7.7) k/uL D-Dimer (<0.60) mg/L FEU ABG pH (7.35-7.45) ABG pO2 51 L* (83-108) mmHg ABG O2 Saturation 82.6 L (94-97) % Sodium (137-145) mmol/L Potassium (3.5-5.1) mmol/L Carbon Dioxide (22-30) mmol/L BUN (7-17) mg/dL Creatinine (0.52-1.04) mg/dL Glucose (74-99) mg/dL POC Glucose (mg/dL) 184 H 296 H (75-99) mg/dL Lactate Dehydrogenase (313-618) U/L C-Reactive Protein (<1.0) mg/dL Total Protein (6.3-8.2) g/dL Albumin (3.5-5.0) g/dL 09/24/20 09/24/20 09/24/20 Range/Units 04:39 04:50 04:50 WBC 12.5 H (3.8-10.6) k/uL RBC 3.37 L (3.80-5.40) m/uL Hgb 9.8 L (11.4-16.0) gm/dL Hct 28.8 L (34.0-46.0) % RDW 15.9 H (11.5-15.5) % Neutrophils # 9.9 H (1.3-7.7) k/uL D-Dimer (<0.60) mg/L FEU ABG pH 7.31 L (7.35-7.45) ABG pO2 49 L* (83-108) mmHg ABG O2 Saturation 79.6 L (94-97) % Sodium 132 L (137-145) mmol/L Potassium 3.4 L (3.5-5.1) mmol/L Carbon Dioxide 20 L (22-30) mmol/L BUN 48 H (7-17) mg/dL Creatinine 4.67 H (0.52-1.04) mg/dL Glucose 296 H (74-99) mg/dL POC Glucose (mg/dL) (75-99) mg/dL Lactate Dehydrogenase 2217 H (313-618) U/L C-Reactive Protein 2.8 H (<1.0) mg/dL Total Protein 5.0 L (6.3-8.2) g/dL Albumin 2.5 L (3.5-5.0) g/dL 09/24/20 09/24/20 Range/Units 04:50 06:17 WBC (3.8-10.6) k/uL RBC (3.80-5.40) m/uL Hgb (11.4-16.0) gm/dL Hct (34.0-46.0) % RDW (11.5-15.5) % Neutrophils # (1.3-7.7) k/uL D-Dimer 13.32 H (<0.60) mg/L FEU ABG pH (7.35-7.45) ABG pO2 (83-108) mmHg ABG O2 Saturation (94-97) % Sodium (137-145) mmol/L Potassium (3.5-5.1) mmol/L Carbon Dioxide (22-30) mmol/L BUN (7-17) mg/dL Creatinine (0.52-1.04) mg/dL Glucose (74-99) mg/dL POC Glucose (mg/dL) 328 H (75-99) mg/dL Lactate Dehydrogenase (313-618) U/L C-Reactive Protein (<1.0) mg/dL Total Protein (6.3-8.2) g/dL Albumin (3.5-5.0) g/dL
[2020-09-24] MEDS: INSULIN DETEMIR (LEVEMIR) 100 UNIT/ML SYR SQ SCH ×2 (14:00→23:31)
[2020-09-24 14:06] LABS: Glucose,Whole Blood 455 mg/dL (75-99)
[2020-09-24] MEDS: CISATRACURIUM 200 MG in SODIUM CHLORIDE 0.9% 180 ML IV SCH (16:41)
[2020-09-24 18:14] LABS: Glucose,Whole Blood 443 mg/dL (75-99)
[2020-09-24 23:23] LABS: Glucose,Whole Blood 326 mg/dL (75-99)
[2020-09-25] MEDS: fentaNYL (PF). 1,000 MCG in SODIUM CHLORIDE 0.9% 80 ML IV SCH ×3 (02:15→09:42)
[2020-09-25 05:00] LABS: ABG Base Excess -5.8 mmol/L; ABG HCO3 20 mmol/L (21-25); ABG Oxygen Saturation 96.8 % (94-97); ABG PCO2 38 mmHg (35-45); ABG PH 7.33 (7.35-7.45); ABG PO2 95 mmHg (83-108); ABG TCO2 21 mmol/L (19-24)
[2020-09-25 05:10] LABS: Basophils % (A) 0 %; Eosinophils # (A) 0.1 k/uL (0-0.7); Eosinophils % (A) 2 %; HCT 25.1 % (34.0-46.0); HGB 8.5 gm/dL (11.4-16.0); Lymphocytes # (A) 1.1 k/uL (1.0-4.8); Lymphocytes % (A) 11 %; MCH 28.7 pg (25.0-35.0); MCHC 33.9 g/dL (31.0-37.0); MCV 84.8 fL (80.0-100.0); Mean Platelet Volume 9.8; Monocytes # (A) 0.4 k/uL (0-1.0); Monocytes % (A) 4 %; Neutrophils # (A) 7.5 k/uL (1.3-7.7); Neutrophils % (A) 81 %; Platelet Count 171 k/uL (150-450); Poikilocytosis Slight; RBC 2.96 m/uL (3.80-5.40); RDW 15.8 % (11.5-15.5); WBC 9.3 k/uL (3.8-10.6)
[2020-09-25 05:24] LABS: Allen Test Performed? no
[2020-09-25 05:25] LABS: Albumin 2.3 g/dL (3.5-5.0); C Reactive Protein 7.6 mg/dL (<1.0); Calcium 8.9 mg/dL (8.4-10.2); Potassium 3.7 mmol/L (3.5-5.1); Total Bilirubin 0.2 mg/dL (0.2-1.3); Total Protein 4.8 g/dL (6.3-8.2)
[2020-09-25 05:35] LABS: Glucose,Whole Blood 290 mg/dL (75-99)
[2020-09-25] MEDS: INSULIN ASPART (NovoLOG) 100 UNIT/ML VIAL SQ SCH ×6 (06:01→19:03)
[2020-09-25] MEDS: INSULIN DETEMIR (LEVEMIR) 100 UNIT/ML SYR SQ SCH ×2 (06:04→22:01)
--- NOTE | 2020-09-25 08:05 | XR ---
EXAMINATION TYPE: XR chest 1V portable DATE OF EXAM: 09/25/2020 CLINICAL HISTORY: Difficulty breathing and covid pneumonia progress study. TECHNIQUE: Single AP portable semiupright view of the chest is obtained. COMPARISON: Chest x-ray from one day earlier and older studies. FINDINGS: Stable tracheostomy tube. Stable right internal jugular large bore dialysis catheter. Persistent bilateral multifocal and confluent opacities redemonstrated. Cardiac silhouette size stabl e and mildly enlarged. Osseous structures are intact. IMPRESSION: Bilateral multifocal and confluent opacities consistent with covid-19 infection and/or AR DS are redemonstrated. Findings fairly stable from one day earlier.
[2020-09-25] MEDS: ALBUTEROL HFA INHALER INHALATION SCH ×4 (09:04→19:55)
[2020-09-25] MEDS: SYMBICORT 160-4.5 MCG INHALER INHALATION SCH ×2 (09:05→19:55)
[2020-09-25] MEDS: DEXAMETHASONE SOD PHOSPHATE 10 MG/ML 1 ML VIAL IV SCH (09:30)
[2020-09-25] MEDS: CHLORHEXIDINE GLUCONATE 15 ML CUP MUCOUS MEM SCH ×2 (09:30→22:00)
[2020-09-25] MEDS: ZINC SULFATE 220 MG CAP PO SCH (09:31)
[2020-09-25] MEDS: SODIUM CHLORIDE 0.9% 500 ML 500 ML IV SCH (09:31)
[2020-09-25] MEDS: METOPROLOL TARTRATE 25 MG TAB PO SCH ×2 (09:31→22:01)
[2020-09-25] MEDS: PANTOPRAZOLE 40 MG/10 ML VIAL IVP SCH (09:31)
[2020-09-25] MEDS: SODIUM BICARBONATE TAB 650 MG TAB PO SCH ×3 (09:31→22:00)
[2020-09-25] MEDS: ASCORBIC ACID 500 MG TAB PO SCH ×2 (09:31→22:00)
[2020-09-25] MEDS: CHOLECALCIFEROL 25 MCG (1000 IU) TABLET PO SCH (09:31)
[2020-09-25] MEDS: ENOXAPARIN 60 MG/0.6 ML SYRINGE SQ SCH (09:32)
--- NOTE | 2020-09-25 10:41 | P.PN ---
Subjective Patient is seen in follow-up for acute kidney injury. Started on hemodialysis September 14. Oliguric. Status post tracheostomy and PEG tube placement this admission. Receiving tube feeding. Vital signs are stable. General: The patient appeared well nourished and normally developed. HEENT: Tracheostomy noted. LUNGS: Breath sounds decreased. HEART: Rate and Rhythm. Abdomen: Soft, no distention. EXTREMITITES: Trace edema. Objective - Vital Signs Vital signs: Vital Signs Temp 97.8 F 09/25/20 04:00 Pulse 61 09/25/20 07:00 Resp 36 H 09/25/20 07:00 BP 106/54 09/25/20 07:00 Pulse Ox 94 L 09/25/20 07:00 Intake & Output 09/24/20 09/25/20 09/25/20 18:59 06:59 18:59 Intake Total 9956.467 8689.446 153.13 Output Total 21 15 0 Balance 6594.913 9805.446 153.13 Weight 121.6 kg Intake: IV 276 276 23 0.9 Normal Saline @ KVO 240 240 20 Pressure Bag 36 36 3 Intake, IV Titration 643.910 692.446 85.13 Amount Norepinephrine 8 mg In 46.747 15.193 Sodium Chloride 0.9% 250 ml @ 0.05 MCG/KG/MIN 9. 699 mls/hr IV .Q24H [facility] Rx#:[id number] fentaNYL (PF). 1,000 mcg 203.388 324.487 85.13 In Sodium Chloride 0.9% 80 ml @ Per Protocol IV . Q0M [facility] Rx#:[id number] propofoL 1,000 mg In 393.775 352.766 Empty Bag 1 bag @ Titrate IV .Q0M [facility] Rx#: [id number] Tube Feeding 495 540 45 Other 90 90 Output: Urine 21 15 0 Other: Voiding Method Indwelling Catheter Indwelling Catheter ABP, PAP, CO, CI - Last Documented Arterial Blood Pressure 121/54 - Labs CBC & Chem 7: 09/25/20 04:50 09/25/20 04:50 Labs: Abnormal Lab Results - Last 24 Hours (Table) 09/24/20 09/24/20 09/24/20 Range/Units 11:40 11:55 14:04 RBC (3.80-5.40) m/uL Hgb (11.4-16.0) gm/dL Hct (34.0-46.0) % RDW (11.5-15.5) % D-Dimer (<0.60) mg/L FEU ABG pH 7.27 L (7.35-7.45) ABG HCO3 19 L (21-25) mmol/L Sodium (137-145) mmol/L Carbon Dioxide (22-30) mmol/L BUN (7-17) mg/dL Creatinine (0.52-1.04) mg/dL Glucose (74-99) mg/dL POC Glucose (mg/dL) 409 H 455 H (75-99) mg/dL C-Reactive Protein (<1.0) mg/dL Total Protein (6.3-8.2) g/dL Albumin (3.5-5.0) g/dL 09/24/20 09/24/20 09/25/20 Range/Units 18:12 23:21 04:50 RBC 2.96 L (3.80-5.40) m/uL Hgb 8.5 L (11.4-16.0) gm/dL Hct 25.1 L (34.0-46.0) % RDW 15.8 H (11.5-15.5) % D-Dimer (<0.60) mg/L FEU ABG pH (7.35-7.45) ABG HCO3 (21-25) mmol/L Sodium (137-145) mmol/L Carbon Dioxide (22-30) mmol/L BUN (7-17) mg/dL Creatinine (0.52-1.04) mg/dL Glucose (74-99) mg/dL POC Glucose (mg/dL) 443 H 326 H (75-99) mg/dL C-Reactive Protein (<1.0) mg/dL Total Protein (6.3-8.2) g/dL Albumin (3.5-5.0) g/dL 09/25/20 09/25/20 09/25/20 Range/Units 04:50 04:50 04:58 RBC (3.80-5.40) m/uL Hgb (11.4-16.0) gm/dL Hct (34.0-46.0) % RDW (11.5-15.5) % D-Dimer 4.57 H (<0.60) mg/L FEU ABG pH 7.33 L (7.35-7.45) ABG HCO3 20 L (21-25) mmol/L Sodium 130 L (137-145) mmol/L Carbon Dioxide 20 L (22-30) mmol/L BUN 61 H (7-17) mg/dL Creatinine 5.65 H (0.52-1.04) mg/dL Glucose 284 H (74-99) mg/dL POC Glucose (mg/dL) (75-99) mg/dL C-Reactive Protein 7.6 H (<1.0) mg/dL Total Protein 4.8 L (6.3-8.2) g/dL Albumin 2.3 L (3.5-5.0) g/dL 09/25/20 Range/Units 05:32 RBC (3.80-5.40) m/uL Hgb (11.4-16.0) gm/dL Hct (34.0-46.0) % RDW (11.5-15.5) % D-Dimer (<0.60) mg/L FEU ABG pH (7.35-7.45) ABG HCO3 (21-25) mmol/L Sodium (137-145) mmol/L Carbon Dioxide (22-30) mmol/L BUN (7-17) mg/dL Creatinine (0.52-1.04) mg/dL Glucose (74-99) mg/dL POC Glucose (mg/dL) 290 H (75-99) mg/dL C-Reactive Protein (<1.0) mg/dL Total Protein (6.3-8.2) g/dL Albumin (3.5-5.0) g/dL Assessment and Plan Plan: Assessment: 1. Acute kidney injury secondary to ATN secondary to COVID-19 and DKA. Basel ine creatinine is near 1. Started on hemodialysis on September 14. Oliguric. No hydronephrosis noted on kidney ultrasound. 2. DKA s/p insulin drip and IV fluids. 3. Acute hypoxic respiratory failure secondary to COVID-19 pneumonia. Status post tracheostomy this admission. 4. Metabolic acidosis secondary to acute kidney injury and DKA s/p bicarb drip. Now on oral bicarbonate. 5. Hyponatremia secondary to acute kidney injury and component of hypertonicity due to hyperglycemia. Plan: Hemodialysis today. Maintain tube feeds. Avoid nephrotoxins. Continue to monitor renal function and urine output. Monitor for renal recovery. Repeat phosphorus level.
--- NOTE | 2020-09-25 11:47 | P.PN ---
Subjective Progress Note Date: 09/25/20 On 09/25/2020, the patient is being seen in follow-up in the intensive care unit. For now, the patient remains in respiratory failure, remains intubated on a mechanical ventilator. She is post, respiratory failure secondary to COVID-19 related to pneumonia with secondary ARDS. The patient remained on assist control mode at the rate of 36 and a tidal volume of 375 and FiO2 of 50% with a PEEP of 20. The peak air pressure was 43. The static pressure was 37. The blood gases from today showed a pH of 7.33 with a pCO2 of 38 and pO2 of 95. Chest x-ray still consistent with diffuse bilateral pulmonary infiltrates with bilateral multifocal and confluent opacities consistent with COVID-19 related pneumonia/ARDS. The patient has been on steroids or along the patient is still on Decadron 6 mg IV every 24 hours. The patient is also on Lovenox 60 mg subcu every 12 hours. She is requiring norepinephrine infusion low-dose of 0.01 mcg/kg per minute. She remains in renal failure. Creatinine today is at 5.65 with a BUN of 61. The net fluid balance is been +38 mL over the past 24 hours. The patient's last hemodialysis session was on 09/23/2020 with a total of 2.5 L of fluids was removed and the patient is scheduled to have another session of hemodialysis today. The patient this morning is sedated with propofol running at 50 mcg/kg per minute. Nevertheless, despite that, she is arousable and she opens her eyes spontaneously. Doesn't follow commands consistently. Her white cell count is at 9.3 with a hemoglobin of 8.5 blood sugars remain elevated and the patient is on Levemir insulin 20 units twice a day and the patient is also started on lower log 5 units every 6 hours [id number] plus a signs good coverage. The patient continues to receive enteral feeds and the patient is currently on vital high protein at the rate of 45 mL an hour. IV fluids with normal saline at the rate of 20 mL an hour. The patient is afebrile. No other significant issues overnight for now. Objective - Vital Signs Vital signs: Vital Signs Temp 97.8 F 09/25/20 04:00 Pulse 61 09/25/20 07:00 Resp 36 H 09/25/20 07:00 BP 106/54 09/25/20 07:00 Pulse Ox 94 L 09/25/20 07:00 Intake & Output 09/24/20 09/25/20 09/25/20 18:59 06:59 18:59 Intake Total 7590.706 1331.446 153.13 Output Total 21 15 0 Balance 5132.450 5259.446 153.13 Weight 121.6 kg Intake: IV 276 276 23 0.9 Normal Saline @ KVO 240 240 20 Pressure Bag 36 36 3 Intake, IV Titration 643.910 692.446 85.13 Amount Norepinephrine 8 mg In 46.747 15.193 Sodium Chloride 0.9% 250 ml @ 0.05 MCG/KG/MIN 9. 699 mls/hr IV .Q24H [facility] Rx#:[id number] fentaNYL (PF). 1,000 mcg 203.388 324.487 85.13 In Sodium Chloride 0.9% 80 ml @ Per Protocol IV . Q0M [facility] Rx#:[id number] propofoL 1,000 mg In 393.775 352.766 Empty Bag 1 bag @ Titrate IV .Q0M [facility] Rx#: [id number] Tube Feeding 495 540 45 Other 90 90 Output: Urine 21 15 0 Other: Voiding Method Indwelling Catheter Indwelling Catheter ABP, PAP, CO, CI - Last Documented Arterial Blood Pressure 121/54 - Exam GENERAL EXAM: Sedated, 35-year-old female patient, on assist control mode of ventilation with FiO2 50 percent and PEEP of 20, with a pulse ox of 89% comfortable in no apparent distress. HEAD: Normocephalic/atraumatic. EYES: Normal reaction of pupils, equal size. Conjunctiva pink, sclera white. NOSE: Clear with pink turbinates. THROAT: No erythema or exudates. NECK: Right internal jugular hemodialysis catheter placed. Tracheostomy tube secured in place. No masses, no JVD, no thyroid enlargement, no adenopathy. CHEST: No chest wall deformity. Symmetrical expansion. LUNGS: Equal air entry with bilateral crackles CVS: Regular rate and rhythm, normal S1 and S2, no gallops, no murmurs, no rubs ABDOMEN: PEG tube exit site clean and dry. No hepatosplenomegaly, normal bowel sounds, no guarding or rigidity. EXTREMITIES: No clubbing, no edema, no cyanosis, 2+ pulses and upper and lower extremities. MUSCULOSKELETAL: Muscle strength and tone normal. SPINE: No scoliosis or deformity SKIN: No rashes CENTRAL NERVOUS SYSTEM: Sedated. No focal deficits, tone is normal in all 4 extremities. - Labs CBC & Chem 7: 09/25/20 04:50 09/25/20 04:50 Labs: Abnormal Lab Results - Last 24 Hours (Table) 09/24/20 09/24/20 09/24/20 Range/Units 11:40 11:55 14:04 RBC (3.80-5.40) m/uL Hgb (11.4-16.0) gm/dL Hct (34.0-46.0) % RDW (11.5-15.5) % D-Dimer (<0.60) mg/L FEU ABG pH 7.27 L (7.35-7.45) ABG HCO3 19 L (21-25) mmol/L Sodium (137-145) mmol/L Carbon Dioxide (22-30) mmol/L BUN (7-17) mg/dL Creatinine (0.52-1.04) mg/dL Glucose (74-99) mg/dL POC Glucose (mg/dL) 409 H 455 H (75-99) mg/dL C-Reactive Protein (<1.0) mg/dL Total Protein (6.3-8.2) g/dL Albumin (3.5-5.0) g/dL 09/24/20 09/24/20 09/25/20 Range/Units 18:12 23:21 04:50 RBC 2.96 L (3.80-5.40) m/uL Hgb 8.5 L (11.4-16.0) gm/dL Hct 25.1 L (34.0-46.0) % RDW 15.8 H (11.5-15.5) % D-Dimer (<0.60) mg/L FEU ABG pH (7.35-7.45) ABG HCO3 (21-25) mmol/L Sodium (137-145) mmol/L Carbon Dioxide (22-30) mmol/L BUN (7-17) mg/dL Creatinine (0.52-1.04) mg/dL Glucose (74-99) mg/dL POC Glucose (mg/dL) 443 H 326 H (75-99) mg/dL C-Reactive Protein (<1.0) mg/dL Total Protein (6.3-8.2) g/dL Albumin (3.5-5.0) g/dL 09/25/20 09/25/20 09/25/20 Range/Units 04:50 04:50 04:58 RBC (3.80-5.40) m/uL Hgb (11.4-16.0) gm/dL Hct (34.0-46.0) % RDW (11.5-15.5) % D-Dimer 4.57 H (<0.60) mg/L FEU ABG pH 7.33 L (7.35-7.45) ABG HCO3 20 L (21-25) mmol/L Sodium 130 L (137-145) mmol/L Carbon Dioxide 20 L (22-30) mmol/L BUN 61 H (7-17) mg/dL Creatinine 5.65 H (0.52-1.04) mg/dL Glucose 284 H (74-99) mg/dL POC Glucose (mg/dL) (75-99) mg/dL C-Reactive Protein 7.6 H (<1.0) mg/dL Total Protein 4.8 L (6.3-8.2) g/dL Albumin 2.3 L (3.5-5.0) g/dL 09/25/20 Range/Units 05:32 RBC (3.80-5.40) m/uL Hgb (11.4-16.0) gm/dL Hct (34.0-46.0) % RDW (11.5-15.5) % D-Dimer (<0.60) mg/L FEU ABG pH (7.35-7.45) ABG HCO3 (21-25) mmol/L Sodium (137-145) mmol/L Carbon Dioxide (22-30) mmol/L BUN (7-17) mg/dL Creatinine (0.52-1.04) mg/dL Glucose (74-99) mg/dL POC Glucose (mg/dL) 290 H (75-99) mg/dL C-Reactive Protein (<1.0) mg/dL Total Protein (6.3-8.2) g/dL Albumin (3.5-5.0) g/dL Assessment and Plan Plan: 1 Acute hypoxic respiratory failure secondary to COVID-19 pneumonia/ARDS, transferred to the intensive care unit on 09/11/2020 and intubated and placed on mechanical ventilator on 09/11/2020. Patient received 1 dose of Remdesivir on 09/11/2020, however based on her quick progression of her hypoxic respiratory failure she received Tocilizumab 800 mg on 09/11/2020. Tracheostomy and PEG tube placed on 09/18/2020. For now, the patient remains intubated on a mechanical ventilator. Patient is currently on a PEEP of 20 with an FiO2 of 50%. Peak airway pressures 43 at a pressure is 40. Patient is awake. She opens her eyes and she will occasionally follows some simple commands. The patient remains sedated with propofol. The patient is opening her eyes spontaneously. Chest x-ray was noted. Blood gases was noted. There has been some improvement in the patient's oxygenation. 2 Acute kidney injury related to ATN, nephrology has been consulted, ultrasound of the kidneys showed no evidence of hydronephrosis. Patient was initiated on hemodialysis on 09/14/2020. Permacath placed 09/20/2020. Her last hemodialysis session was on 09/23/2020 and the patient is going to undergo another session of hemodialysis today with a goal of ultrafiltration of 3 L. 3 Acute diabetic ketoacidosis, resolved sugar is still poorly controlled, the patient is currently on long-acting insulin in the patient's Levemir 20 units twice a day along with NovoLog 5 units 4 times a day. Blood sugars are still somewhat elevated. 4 Acute metabolic acidosis related to acute DKA, and acute kidney injury. Recovered with bicarbonate infusion 5 Increased d-dimer, related to COVID-19 pneumonia, currently on Lovenox 50 mg daily 6 Possible sepsis with increased pro-calcitonin suggesting presence of bacterial infection, cultures have been sent and all negative 7 Diabetes mellitus type 2 8 Morbid obesity with BMI 45.3 kg/m 9 Nonsmoker Plan Dropped the PEEP down to 17 and keep the tidal volume of 375. Will drop the respiratory rate down to 28. Deep FiO2 of 50%. Gradually wean off the sedation. Drop Lovenox dose to 40 mg subcu daily Dialysis today Enteral feeding for nutrition support in the form of vital high protein at the rate of 45 mL an hour Decadron 6 mg IV every 24 hours, Dr. Solis down to 4 mg IV every 24 hours Continue Levemir insulin 20 units twice a day and keep the NovoLog 5 units every 6 hours along with a sliding scale coverage. We'll increase the maintenance Levemir dose if needed depending on her blood sugar control. Condition is critical we'll continue to follow make further recommendations based on her progress. This is a critically care evaluation that was on a more than 30 minutes. Time with Patient: Greater than 30
[2020-09-25 11:55] LABS: Glucose,Whole Blood 262 mg/dL (75-99)
[2020-09-25 12:19] LABS: ABG Base Excess -6.8 mmol/L; ABG HCO3 20 mmol/L (21-25); ABG Oxygen Saturation 94.6 % (94-97); ABG PCO2 42 mmHg (35-45); ABG PH 7.28 (7.35-7.45); ABG PO2 83 mmHg (83-108); ABG TCO2 21 mmol/L (19-24); Allen Test Performed? Yes
--- NOTE | 2020-09-25 12:25 | P.PN ---
Subjective Progress Note Date: 09/25/20 CHIEF COMPLAINT: COVID-19 pneumonia HISTORY OF PRESENT ILLNESS: Patient is in the ICU for COVID-19 pneumonia and respiratory failure. She is status post tracheostomy and PEG tube placement with Dr. hollis. Patient is tolerating tube feedings. Patient remains on mechanical ventilation. She has been on high PEEP. Pulmonary service is trying to titrate PEEP down from 21-17. Also social work is working on discharge placement for patient. She is afebrile. WBC is 9.3. Patient is scheduled for hemodialysis today. Patient seen and examined with Dr. hollis PHYSICAL EXAM: VITAL SIGNS: Reviewed. GENERAL: Well-developed in no acute distress. HEENT: No sclera icterus. Extraocular movements grossly intact. Moist buccal mucosa. Head is atraumatic, normocephalic. Tracheostomy site clean dry and intact. No evidence of bleeding ABDOMEN: Soft. Nondistended. Nontender. PEG tube site clean dry and intact NEUROLOGIC: Sedated ASSESSMENT: 1. Acute hypoxic respiratory failure with prolonged mechanical ventilation due to COVID-19 pneumonia status post tracheostomy placement 2. Severe protein calorie malnutrition status post PEG tube placement PLAN: -Continue tube feedings -Continue supportive care -Continue ICU management Physician Broiler Manager note has been reviewed by physician. Signing provider agrees with the documented findings, assessment, and plan of care. Objective - Vital Signs Vital signs: Vital Signs Temp 98.5 F 09/25/20 08:00 Pulse 63 09/25/20 11:00 Resp 40 H 09/25/20 11:00 BP 103/56 09/25/20 11:00 Pulse Ox 94 L 09/25/20 11:00 Intake & Output 09/24/20 09/25/20 09/25/20 18:59 06:59 18:59 Intake Total 8125.312 8619.446 245.13 Output Total 21 15 0 Balance 6815.857 2331.446 245.13 Weight 121.6 kg 121.6 kg Intake: IV 276 276 115 0.9 Normal Saline @ KVO 240 240 100 Pressure Bag 36 36 15 Intake, IV Titration 643.910 692.446 85.13 Amount Norepinephrine 8 mg In 46.747 15.193 Sodium Chloride 0.9% 250 ml @ 0.05 MCG/KG/MIN 9. 699 mls/hr IV .Q24H [facility] Rx#:[id number] fentaNYL (PF). 1,000 mcg 203.388 324.487 85.13 In Sodium Chloride 0.9% 80 ml @ Per Protocol IV . Q0M [facility] Rx#:[id number] propofoL 1,000 mg In 393.775 352.766 Empty Bag 1 bag @ Titrate IV .Q0M [facility] Rx#: [id number] Tube Feeding 495 540 45 Other 90 90 Output: Urine 21 15 0 Other: Voiding Method Indwelling Catheter Indwelling Catheter Indwelling Catheter ABP, PAP, CO, CI - Last Documented Arterial Blood Pressure 115/55 - Labs CBC & Chem 7: 09/25/20 04:50 09/25/20 04:50 Labs: Abnormal Lab Results - Last 24 Hours (Table) 09/24/20 09/24/20 09/24/20 Range/Units 14:04 18:12 23:21 RBC (3.80-5.40) m/uL Hgb (11.4-16.0) gm/dL Hct (34.0-46.0) % RDW (11.5-15.5) % D-Dimer (<0.60) mg/L FEU ABG pH (7.35-7.45) ABG HCO3 (21-25) mmol/L Sodium (137-145) mmol/L Carbon Dioxide (22-30) mmol/L BUN (7-17) mg/dL Creatinine (0.52-1.04) mg/dL Glucose (74-99) mg/dL POC Glucose (mg/dL) 455 H 443 H 326 H (75-99) mg/dL C-Reactive Protein (<1.0) mg/dL Total Protein (6.3-8.2) g/dL Albumin (3.5-5.0) g/dL 09/25/20 09/25/20 09/25/20 Range/Units 04:50 04:50 04:50 RBC 2.96 L (3.80-5.40) m/uL Hgb 8.5 L (11.4-16.0) gm/dL Hct 25.1 L (34.0-46.0) % RDW 15.8 H (11.5-15.5) % D-Dimer 4.57 H (<0.60) mg/L FEU ABG pH (7.35-7.45) ABG HCO3 (21-25) mmol/L Sodium 130 L (137-145) mmol/L Carbon Dioxide 20 L (22-30) mmol/L BUN 61 H (7-17) mg/dL Creatinine 5.65 H (0.52-1.04) mg/dL Glucose 284 H (74-99) mg/dL POC Glucose (mg/dL) (75-99) mg/dL C-Reactive Protein 7.6 H (<1.0) mg/dL Total Protein 4.8 L (6.3-8.2) g/dL Albumin 2.3 L (3.5-5.0) g/dL 09/25/20 09/25/20 09/25/20 Range/Units 04:58 05:32 11:53 RBC (3.80-5.40) m/uL Hgb (11.4-16.0) gm/dL Hct (34.0-46.0) % RDW (11.5-15.5) % D-Dimer (<0.60) mg/L FEU ABG pH 7.33 L (7.35-7.45) ABG HCO3 20 L (21-25) mmol/L Sodium (137-145) mmol/L Carbon Dioxide (22-30) mmol/L BUN (7-17) mg/dL Creatinine (0.52-1.04) mg/dL Glucose (74-99) mg/dL POC Glucose (mg/dL) 290 H 262 H (75-99) mg/dL C-Reactive Protein (<1.0) mg/dL Total Protein (6.3-8.2) g/dL Albumin (3.5-5.0) g/dL 09/25/20 Range/Units 12:13 RBC (3.80-5.40) m/uL Hgb (11.4-16.0) gm/dL Hct (34.0-46.0) % RDW (11.5-15.5) % D-Dimer (<0.60) mg/L FEU ABG pH 7.28 L (7.35-7.45) ABG HCO3 20 L (21-25) mmol/L Sodium (137-145) mmol/L Carbon Dioxide (22-30) mmol/L BUN (7-17) mg/dL Creatinine (0.52-1.04) mg/dL Glucose (74-99) mg/dL POC Glucose (mg/dL) (75-99) mg/dL C-Reactive Protein (<1.0) mg/dL Total Protein (6.3-8.2) g/dL Albumin (3.5-5.0) g/dL
--- NOTE | 2020-09-25 12:30 | P.PN ---
Subjective Progress Note Date: 09/25/20 HISTORY OF PRESENT ILLNESS 35-year-old female patient of Dr. Arroyo with past medical history of type 2 diabetes comes in with acute shortness of breath associated with high light s ugars. Patient on admission was found to have a fever of 101.5 pulse rate 125 respiratory rate 20. Blood pressure 132/106. On chest x-ray obtained in the ER suggestive of bilateral infiltrates concerning for call with pneumonia. COVID PCR was positive. On admissions patient had an ABG with a pH of 7.14 pCO2 of 20, pO2 of 59, bicarb of 7. Patient's blood sugar on admission was 424 on assessment today patient's blood work patient had a sodium 135 potassium 5.4 chloride 123 bicarb less than 5 and creatinine 0.73. D-dimer was elevated on admission patient 9 28 patient given 1 L of IV fluids followed by normal saline running at 200 mL/h. Patient was positive for acetone on admission. She will anion gap closed and was switched to D5NS. Insulin drip was continued during the night and was switched to patient's home medication this morning. One dose of remdesiver was ordered. Apparently around noon, A- team was called on the patient secondary to hypoxia patient's oxygen saturation dropped to the 70s and 80s on 100% nonrebreather. Patient was switched to BiPAP on 18/12 and is doing better o FiO2 of 80%. ABG was obtained and ph was 7. 14 pCO2 of 28 bicarb of 7 pO2 of 17. Patient noted to have uncompensated metabolic acidosis with compensated respiratory alkalosis. Stat dose of 1 amp bicarb was given and followed by sodium bicarbonate drip. Insulin drip restarted. Patient's initiated on dexamethasone 6 mg IV twice a day. Potassium phosphate ordered as phosphorus is low. Patient's repeat blood gases suggest a pH of 7.25, CO2 32 pO2 of 72 bicarb 14. I will not normal saline at 100 mL/h as patient's anion gap has increased. Patient given 1 dose of 2 mg of morphine with improvement in respiratory rate. One dose of Ativan 0.5 mg was given. Xanax 0.25 twice a day along with Ativan 0.5 IV every 6 hours ordered for the patient. Vitals were evaluated patient pulse 129 [id number]. She was moved to the ICU. Precedex drip was initiated. Lopressor was initiated at 25 twice a day. Metoprolol tartrate 5 mg IV every 6 hours. Systolic blood pressure more than 160. Started chest x-ray was obtained and suggest stable bilateral consolidation suggestive of COVID-19 pneumonia. 09/12 patient is seen in the ICU is currently mechanically ventilated and sedated on vent settings of respiratory rate 36, tidal volume 375 FiO2 80% PEEP of 18.. Vital signs reviewed patient had a temp of 100.4 pulse 150 respiratory rate 36 oxygen saturation 95% on 80% on fio2 .'s labs are reviewed which patient had a d-dimer 1.84 that is increased to 14.3. Arterial Blood gas suggest ph 7.35, CO2 40, po2 62, . Her BMP suggest a sodium 135 potassium 3.7 chloride 112 bicarb 21 creatinine 1.57 for calcitonin is 3.5 CRP is increased from 8.78.2 LDH is increased to 2614. Patient remains on Pneumovax, propofol drip. Lovenox increased to 50 subcu twice a day. Patient received 2 L of IV fluids. Continue IV fluids at 100 mL/h. Bicarb drip discontinued patient initiated on Zosyn 3.375 every 8 hours. Continue insulin drip at 4 units per hour. Patient is currently in prone positioning 09/13: Patient evaluated in the ICU remains on Ventilation continues to be sedated, in prone position. Vent settings are respiratory rate 36, tidal vital 375, FiO2 70% PEEP of 18. ABG shows pO2 of 82, PCO2 of 39, pH is 7.19. Latest labs show WBC 11.1, hemoglobin 13.2, d-dimer still pending, but yesterday was up to 14.3. Creatinine up to 3.4, BUN 24 sodium 137, potassium 4.0. Patient's urine output has been low, nephrology on consult. Bicarb drip increased to 100 miles an hour, receiving another liter of normal saline, she did have a ultrasound that showed unremarkable bilateral kidneys. Repeat chest x-ray showed bilateral lung infiltrates that are stable. Anion gap has closed, will start Lantus 10 units at at bedtime Novolog every 6 hours. 09/14: Patient is seen in the ICU, still currently mechanically ventilated and sedated. She continues in the prone position. Her oxygen quickly drops if she is not in prone. Patient's kidney function has worsened. Laboratory values show creatinine of 4.87, BUN 33, LDH 2191, C-reactive protein 2.7. ABG shows pH 7.32, pO2 of 60, pCO2 43. Patient is making almost no urine overnight. Nephrology is following patient continues on cefepime for urinary tract infection, culture is still pending. Vascular has been consulted for placement of temporary hemodialysis catheter for plans for dialysis. 09/15: Patient evaluated in the ICU, continues to be mechanically ventilated and sedated on assist control ventilation rate of 36, tidal volume 375, FiO2 100% and PEEP of 18. ABG today shows pO2 58, pCO2 of 45, and pH 7.35. She continues on tube feedings. Yesterday patient underwent ultrasound-guided right internal jugular non-tunneled hemodialysis catheter placement. Patient underwent hemodialysis treatment last night and plans have another hemodialysis treatment today. She continues to make almost no urine. She continues on cefepime for antibiotic coverage, and continues on Decadron and Lovenox. 09/16: Patient seen on follow-up remains in the ICU mechanically ventilated and sedated. She continues on assist control rate of 36, tidal volume 375, FiO2 100% and PEEP of 20. PEEP had to be increased due to patient had to be in supine position for dialysis, will go back to prone position once dialysis is complete. ABG shows pH 7.32, pCO2 49, PaO2 61. Laboratory values showed WBC 11.2, hemoglobin 11, sodium 134, creatinine 4.44, BUN 38. Urine culture shows no growth, blood cultures show no growth to date. Repeat chest x-ray shows bilateral pleural effusions, correlate for ARDS, pulmonary edema, diffuse pneumonia, findings are stable from last exam. Patient does not require any pressors, blood pressure 133/57, heart rate 78. 5/16: Patient was evaluated in the ICU today for follow-up. She continues to be intubated and on mechanical ventilation. Current vent settings are tidal volume 375, FiO2 100% and PEEP of 20. ABG shows pH 7.37, pCO2 40, pO2 102. She continues with intermittent prone positioning. Patient continues to have almost no urine output, maintained on dialysis. Patient received dialysis yesterday without complication. Laboratory values revealed WBC 10.3, hemoglobin 10.4, sodium 132, potassium 3.1, BUN 33, creatinine 4.29, LDH 1913, C-reactive protein 1.3. Urine and sputum cultures are negative, blood cultures show no growth to date. Consult placed to dietary to start TPN[ ] 09/18: She remains in the intensive care unit intubated and on mechanical ventilation with tidal volume 375, FiO2 60 and PEEP of 20. Patient is being prone to daily at approximately 16 hours per day. Pulmonary medicine has added in Dr. Zhang to do PEG tube and trach today. Patient is not on vasopressors. Repeat blood work reveals WBC 12.6, hemoglobin 9.8, platelet count 212. Sodium 133, potassium 3.2, chloride 102, CO2 21, BUN 35 and creatinine 4.12. Blood sugar 126. Patient underwent hemodialysis yesterday with removal of 2 L and is scheduled again today with goal of 2-3 L and is scheduled again tomorrow. 09/19: She is scheduled for hemodialysis today and is off fentanyl temporarily. Patient is status post trach and PEG tube yesterday. And she remains on mechanical ventilation. Pulse ox 93-95%. She has been afebrile, heart rate 64, respiratory rate 36, blood pressure 115/50. Fentanyl is off to improve blood pressure for hemodialysis which is scheduled for today. Contacted vascular surgery about permanent hemodialysis catheter. Repeat blood work reveals WBC 14.3, hemoglobin 9.6, platelet count 200. D-dimer 6.48. LDH 1686. C-reactive protein 1.1. BUN 34 creatinine 3.81. Sodium 130, potassium 3.5, chloride 101, CO2 18. Blood sugars running between 101 198. Plan is to wean off Pneumovax today. Patient remains on insulin drip. Repeat chest x-ray reveals bilateral multifocal confluent opacities consistent with COVID-19. Some improved aeratio n periphery of the left lung and worsening opacities throughout the right lung. 09/20: She remains in the intensive care unit on mechanical ventilation. She has been afebrile, heart rate 65, respiratory rate 37, blood pressure 121/70, pulse ox 91-99%. Repeat blood work reveals WBC 14.5, hemoglobin 9.1, platelet count 216. D-dimer 6.13. Sodium 133, potassium 3.1, chloride 102, CO2 18, BUN 35 and creatinine 4.27. Blood sugars running between 128 and 143. LDH 1717. C- reactive protein 1.7. Patient remains on insulin drip which will be transitioned to NovoLog scale every 6 hours. Patient is scheduled for permanent hemodialysis catheter placement today with vascular surgery. Repeat chest x-ray reveals stable diffuse bilateral interstitial and airspace disease. Possible small right effusion. His work is following for transfer to [facility]. Do not anticipate discharge until next week. 09/21: Patient is undergoing hemodialysis. She remains on mechanical ventilation with tidal volume 375, FiO2 down to 45 and PEEP was decreased to 15. Patient is continued on propofol, fentanyl drips. She is on tube feedings at goal. Patient was taken off insulin drip yesterday and on scale only but blood sugars are running in the 200s, Levemir scheduled at bedtime will be added. Other blood work reveals WBC 13.3, hemoglobin 8.7, platelet count 192. Sodium 137, potassium 3.6, chloride 107, CO2 18, BUN 34 and creatinine 4.21. Repeat chest x-ray is stable. 09/22: She remains in the intensive care on mechanical ventilation with tidal volume 375, FiO2 of 50 and PEEP of 10. Pulse ox is running 96%. She is afebrile, heart rate in the 50s, respiratory rate 36, blood pressure 100/64. Repeat blood work reveals WBC 16.5, hemoglobin 8.9, platelet count 213. Sodium 134, potassium 3.7, chloride 103, CO2 21, BUN 34 and creatinine 3.89. Blood sugars running in the 200s to 324. Levemir increased to 16 units at bedtime and continue NovoLog scale every 6 hours. Patient is on tube feedings at goal. She has a Haley catheter in with a scant amount of dark/brown urine. Fecal management system is in place. Repeat chest x-ray reveals diffuse bilateral airspace infiltrates persist unchanged. Patient is scheduled for hemodialysis tomorrow morning on Friday. 09/23: Patient remains on mechanical ventilation with tidal volume 3.75, FiO2 50 and PEEP of 10. threat monitoring analyst sinus rhythm. She has no urine output. Fecal management system is in place. She is undergoing dialysis at this time with plan for removal of 2-1/2 L. She has been afebrile, heart rate in the 50s, respiratory rate 36, blood pressure 108/76 and pulse ox 89%. WBC 13.6, hemoglobin 9.1, platelet count 194. Sodium 136, potassium 3.0 and was replaced, chloride 106, CO2 21, BUN 49 creatinine 5.31. Blood sugars are running between 182 and this morning 194. Patient was still in the 200s and 300s. Levemir last evening was increased to 16 units. Patient remains on propofol and fentanyl drips. Lovenox was increased to 60 mg twice daily. 09/24: PEEP was increased today to 20, tidal volume is at 375 and FiO2 of 50%. Patient has been afebrile. She has been started on levo fed. Repeat chest x- ray reveals bilateral multifocal confluent opacities consistent with Covid 19 or ARDS redemonstrated. Nephrology will plan dialysis for tomorrow for 3 L. Patient remains on propofol fentanyl and Nimbex. WBC 12.5, hemoglobin 9.8, platelet count 161. D-dimer 13.3. Sodium 132, potassium 3.4, chloride 102, CO2 20, BUN 48 and creatinine 4.67. Blood sugars extremely elevated to 96-409. LDH 2217. 09/25: Patient remains in the intensive care unit on mechanical ventilation with tidal volume 375, FiO2 50 and PEEP of 20. Patient is afebrile, heart rate 61, respiratory rate 36, blood pressure 102/56, pulse ox 97%. Repeat blood work reveals WBC 9.3, hemoglobin 8.5 and platelet count 171. Sodium 130, potassium 3.7, chloride 100, CO2 20, BUN 61 creatinine 5.65. Blood sugars have been elev ated up to 455. Levemir increased to 20 units twice daily, NovoLog 5 units every 6 hours and continue NovoLog scale. Patient is scheduled for hemodialysis today. Repeat chest x-ray reveals bilateral multifocal and confluent opacities. Decadron and Lovenox dosing change by pulmonary. Patient is off norepinephrine. REVIEW OF SYSTEMS Unable to obtain due to intubation. PHYSICAL EXAMINATION Gen: This is is a 35-year-old black female, patient is intubated and on mechanical ventilation, appears to be comfortable. HEENT: Head is atraumatic, normocephalic. Pupils equal, round. Sclerae is anicteric. Tracheostomy tube in place. NECK: Supple. No JVD. No lymphadenopathy. No thyromegaly. LUNGS: Scattered bilateral rhonchi. No intercostal retractions. HEART: Regular rate and rhythm. No murmur. ABDOMEN: Soft. Bowel sounds are present. No masses. No tenderness. PEG tube in place, area clean and dry. EXTREMITIES: No pedal edema. No calf tenderness. Dorsalis pedis +2 bilaterally. NEUROLOGICAL: Patient is awake, eyes are open. ASSESSMENT AND PLAN 1. Acute hypoxic respiratory failure secondary to Covid 19 pneumonia and possible bacterial pneumonia. Patient was intubated on September 11. She is status post 1 dose of Remdesivir and 1 dose of Tocilizumab. Continue Ventolin inhaler 4 times daily, Symbicort twice daily, Decadron 4 mg IV daily, Lovenox 40 mg subcu daily, supplements. Status post PEG tube and trach. 2. Acute diabetic ketoacidosis secondary to Covid 19 pneumonia, uncontrolled with hyperglycemia. Levemir increased to 20 units twice daily, scheduled NovoLog 5 units every 6 hours and NovoLog scale. 3. Metabolic encephalopathy secondary to Covid 19 and DKA. 4. Sepsis and septic shock secondary to Covid 19 pneumonia. Continue as in #1. 5. Acute metabolic acidosis secondary to acute DKA, Covid 19 and acute kidney injury. 6. Diabetes mellitus type 2 uncontrolled with A1c 13.6. Continue Levemir increased to 20 units twice daily, NovoLog 5 units every 6 hours, and NovoLog scale every 6 hours. 7. Hypophosphatemia status post replacement. 8. Hyperkalemia secondary to DKA, resolved. 9. Sinus tachycardia secondary to sepsis, volume deficiency.Continue Lopressor 25 mg twice daily. 10. Acute kidney injury secondary to ATN secondary to Covid 19 and DKA. Patient continued on hemodialysis. Permanent dialysis catheter placed. 11. Hypertension. 12. Morbid obesity with BMI of 53. 13. DVT prophylaxis. Lovenox. 14. GI prophylaxis. Protonix 40 mg IV push daily. CODE STATUS: Full code Prognosis guarded. Impression and plan of care have been directed as dictated by the signing physician. Kimberly Boswell nurse practitioner acting as scribe for signing physician. Objective - Vital Signs Vital signs: Vital Signs Temp 97.8 F 09/25/20 04:00 Pulse 61 09/25/20 07:00 Resp 36 H 09/25/20 07:00 BP 106/54 09/25/20 07:00 Pulse Ox 94 L 09/25/20 07:00 Intake & Output 09/24/20 09/25/20 09/25/20 18:59 06:59 18:59 Intake Total 0315.904 9506.446 68 Output Total 21 15 0 Balance 0584.187 8072.446 68 Weight 121.6 kg Intake: IV 276 276 23 0.9 Normal Saline @ KVO 240 240 20 Pressure Bag 36 36 3 Intake, IV Titration 643.910 692.446 Amount Norepinephrine 8 mg In 46.747 15.193 Sodium Chloride 0.9% 250 ml @ 0.05 MCG/KG/MIN 9. 699 mls/hr IV .Q24H [facility] Rx#:[id number] fentaNYL (PF). 1,000 mcg 203.388 324.487 In Sodium Chloride 0.9% 80 ml @ Per Protocol IV . Q0M [facility] Rx#:[id number] propofoL 1,000 mg In 393.775 352.766 Empty Bag 1 bag @ Titrate IV .Q0M [facility] Rx#: [id number] Tube Feeding 495 540 45 Other 90 90 Output: Urine 21 15 0 Other: Voiding Method Indwelling Catheter Indwelling Catheter ABP, PAP, CO, CI - Last Documented Arterial Blood Pressure 121/54 - Labs CBC & Chem 7: 09/25/20 04:50 09/25/20 04:50 Labs: Abnormal Lab Results - Last 24 Hours (Table) 09/24/20 09/24/20 09/24/20 Range/Units 11:40 11:55 14:04 RBC (3.80-5.40) m/uL Hgb (11.4-16.0) gm/dL Hct (34.0-46.0) % RDW (11.5-15.5) % D-Dimer (<0.60) mg/L FEU ABG pH 7.27 L (7.35-7.45) ABG HCO3 19 L (21-25) mmol/L Sodium (137-145) mmol/L Carbon Dioxide (22-30) mmol/L BUN (7-17) mg/dL Creatinine (0.52-1.04) mg/dL Glucose (74-99) mg/dL POC Glucose (mg/dL) 409 H 455 H (75-99) mg/dL C-Reactive Protein (<1.0) mg/dL Total Protein (6.3-8.2) g/dL Albumin (3.5-5.0) g/dL 09/24/20 09/24/20 09/25/20 Range/Units 18:12 23: 04:50 RBC 2.96 L (3.80-5.40) m/uL Hgb 8.5 L (11.4-16.0) gm/dL Hct 25.1 L (34.0-46.0) % RDW 15.8 H (11.5-15.5) % D-Dimer (<0.60) mg/L FEU ABG pH (7.35-7.45) ABG HCO3 (21-25) mmol/L Sodium (137-145) mmol/L Carbon Dioxide (22-30) mmol/L BUN (7-17) mg/dL Creatinine (0.52-1.04) mg/dL Glucose (74-99) mg/dL POC Glucose (mg/dL) 443 H 326 H (75-99) mg/dL C-Reactive Protein (<1.0) mg/dL Total Protein (6.3-8.2) g/dL Albumin (3.5-5.0) g/dL 09/25/20 09/25/20 09/25/20 Range/Units 04:50 04:50 04:58 RBC (3.80-5.40) m/uL Hgb (11.4-16.0) gm/dL Hct (34.0-46.0) % RDW (11.5-15.5) % D-Dimer 4.57 H (<0.60) mg/L FEU ABG pH 7.33 L (7.35-7.45) ABG HCO3 20 L (21-25) mmol/L Sodium 130 L (137-145) mmol/L Carbon Dioxide 20 L (22-30) mmol/L BUN 61 H (7-17) mg/dL Creatinine 5.65 H (0.52-1.04) mg/dL Glucose 284 H (74-99) mg/dL POC Glucose (mg/dL) (75-99) mg/dL C-Reactive Protein 7.6 H (<1.0) mg/dL Total Protein 4.8 L (6.3-8.2) g/dL Albumin 2.3 L (3.5-5.0) g/dL 09/25/20 Range/Units 05:32 RBC (3.80-5.40) m/uL Hgb (11.4-16.0) gm/dL Hct (34.0-46.0) % RDW (11.5-15.5) % D-Dimer (<0.60) mg/L FEU ABG pH (7.35-7.45) ABG HCO3 (21-25) mmol/L Sodium (137-145) mmol/L Carbon Dioxide (22-30) mmol/L BUN (7-17) mg/dL Creatinine (0.52-1.04) mg/dL Glucose (74-99) mg/dL POC Glucose (mg/dL) 290 H (75-99) mg/dL C-Reactive Protein (<1.0) mg/dL Total Protein (6.3-8.2) g/dL Albumin (3.5-5.0) g/dL
[2020-09-25] MEDS ORDERED: LIDOCAINE 1% INJ 10MG/ML (20 ML MDV) SQ ONE (15:11)
--- NOTE | 2020-09-25 15:51 | XR ---
EXAMINATION TYPE: XR chest 1V confirm line [facility] DATE OF EXAM: 09/25/2020 CLINICAL HISTORY: PICC line placement. TECHNIQUE: Single AP portable semiupright view of the chest is obtained. COMPARISON: Chest x-ray from earlier today and older studies FINDINGS: New right-sided PICC line is coiled terminating before SVC. Stable tracheostomy tube. Stable right internal jugular large bore dialysis catheter. Persistent bilateral multifocal and confluent opacities redemonstrated. Cardiac silhouette size stabl e and mildly enlarged. Osseous structures are intact. IMPRESSION: As above.
--- NOTE | 2020-09-25 15:54 | XR ---
EXAMINATION TYPE: XR chest 1V confirm line [facility] DATE OF EXAM: 09/25/2020 CLINICAL HISTORY: PICC line adjustment. TECHNIQUE: Single AP portable semiupright view of the chest is obtained. COMPARISON: Chest x-ray from earlier today. FINDINGS: Persistent coiled right-sided PICC line terminating before SVC. Stable tracheostomy tube. Stable right internal jugular large bore dialysis catheter. Persistent bilateral multifocal and confluent opacities redemonstrated. Cardiac silhouette size stabl e and mildly enlarged. Osseous structures are intact. IMPRESSION: As above.
--- NOTE | 2020-09-25 15:55 | XR ---
EXAMINATION TYPE: XR chest 1V portable DATE OF EXAM: 09/25/2020 CLINICAL HISTORY: PICC line adjustment. TECHNIQUE: Single AP portable semiupright view of the chest is obtained. COMPARISON: Chest x-ray from earlier today and older studies FINDINGS: Right-sided PICC line now terminates in SVC after adjustment. Stable tracheostomy tube. Stable right internal jugular large bore dialysis catheter. Persistent bilateral multifocal and confluent opacities redemonstrated. Cardiac silhouette size stabl e and mildly enlarged. Osseous structures are intact. IMPRESSION: As above.
--- NOTE | 2020-09-25 16:54 | IR ---
EXAMINATION TYPE: IR cvc insert >=5 years DATE OF EXAM: 09/25/2020 COMPARISON: NONE HISTORY: Infection, needs long-term intravenous access for therapy FINDINGS: Maximal barrier technique was utilized. Hand hygiene obtained with soap and water and alco hol-based hand rub. The skin overlying the right basilic vein was localized with ultrasound and noted to be compressible and patent by ultrasound. An ultrasound image was obtained and submitted on ete ent's chart. Sterile technique utilized with the ultrasound machine. The skin overlying was prepped a nd draped and Lidocaine used for local anesthesia. A skin aurora was made with a scalpel. Access was gained to the vein under direct ultrasound guidance with a 21-gauge needle and a 0.018 inch wire was advanced. Access site was dilated with a peel-away sheath and the catheter tailored to length. Cath eter advanced centrally and a post procedure chest x-ray showed the catheter to be looped, catheter w as manipulated and repeat chest x-ray was performed, catheter is again looped, repeat manipulation of the catheter with wire was performed and subsequently a post procedure chest x-ray verified placemen t with tip at the superior vena cava. Catheter was fixed to the skin and a sterile dressing placed. Hemostasis achieved and the catheter was aspirated and flushed with sterile saline. The patient rem ained in stable condition. IMPRESSION: STATUS POST ULTRASOUND GUIDED PICC LINE PLACEMENT, READY FOR USE. THIS PROCEDURE WAS PER FORMED BY THE UNDERSIGNED.
[2020-09-25 17:52] LABS: Glucose,Whole Blood 227 mg/dL (75-99)
[2020-09-25] MEDS: CISATRACURIUM 200 MG in SODIUM CHLORIDE 0.9% 180 ML IV SCH (19:03)
[2020-09-25] MEDS: NOREPINEPHRINE 8 MG in SODIUM CHLORIDE 0.9% 250 ML IV SCH (20:14)
[2020-09-26 01:02] LABS: Glucose,Whole Blood 166 mg/dL (75-99)
[2020-09-26] MEDS: INSULIN ASPART (NovoLOG) 100 UNIT/ML VIAL SQ SCH ×8 (01:05→18:56)
[2020-09-26 05:01] LABS: Anisocytosis Slight; Basophils % (A) 0 %; Eosinophils # (A) 0.2 k/uL (0-0.7); Eosinophils % (A) 2 %; HCT 26.6 % (34.0-46.0); Lymphocytes # (A) 1.3 k/uL (1.0-4.8); Lymphocytes % (A) 15 %; MCH 28.6 pg (25.0-35.0); MCHC 33.9 g/dL (31.0-37.0); MCV 84.2 fL (80.0-100.0); Mean Platelet Volume 9.8; Monocytes # (A) 0.4 k/uL (0-1.0); Monocytes % (A) 5 %; Neutrophils # (A) 6.5 k/uL (1.3-7.7); Neutrophils % (A) 76 %; Platelet Count 169 k/uL (150-450); Poikilocytosis Slight; RBC 3.15 m/uL (3.80-5.40); RDW 16.1 % (11.5-15.5); WBC 8.5 k/uL (3.8-10.6)
[2020-09-26 05:13] LABS: Albumin 2.6 g/dL (3.5-5.0); Calcium 9.4 mg/dL (8.4-10.2); Potassium 3.6 mmol/L (3.5-5.1); Total Bilirubin 0.3 mg/dL (0.2-1.3); Total Protein 5.2 g/dL (6.3-8.2)
[2020-09-26 05:37] LABS: ABG Base Excess -0.9 mmol/L; ABG HCO3 24 mmol/L (21-25); ABG Oxygen Saturation 94.8 % (94-97); ABG PCO2 38 mmHg (35-45); ABG PH 7.41 (7.35-7.45); ABG PO2 73 mmHg (83-108); ABG TCO2 25 mmol/L (19-24); Allen Test Performed? Yes
[2020-09-26 06:11] LABS: Glucose,Whole Blood 153 mg/dL (75-99)
[2020-09-26] MEDS: INSULIN DETEMIR (LEVEMIR) 100 UNIT/ML SYR SQ SCH ×2 (06:59→21:19)
--- NOTE | 2020-09-26 08:07 | XR ---
EXAMINATION TYPE: XR chest 1V portable DATE OF EXAM: 09/26/2020 COMPARISON: 09/25/2020 HISTORY: SOB, Follow Up FINDINGS: Indwelling tubes and catheters are unchanged. Diffuse airspace infiltrates throughout both lung ann appear to progress slightly in the interval. Stable appearance of the cardio-mediastinal structures at this time. Pleural effusion unchanged. IMPRESSION: 1. Diffuse airspace infiltrates throughout both lung ann appear to progress slightly in the inter cal. Clinical correlation and follow up until resolution is recommended.
[2020-09-26] MEDS ORDERED: ENOXAPARIN 40 MG/0.4 ML SYRINGE SQ SCH (09:00)
[2020-09-26] MEDS: ALBUTEROL HFA INHALER INHALATION SCH ×4 (09:00→20:08)
[2020-09-26] MEDS: SYMBICORT 160-4.5 MCG INHALER INHALATION SCH ×2 (09:09→20:08)
[2020-09-26] MEDS: DEXAMETHASONE SOD PHOSPHATE 4 MG/ML 1 ML VIAL IV SCH (09:59)
[2020-09-26] MEDS: ASCORBIC ACID 500 MG TAB PO SCH ×2 (09:59→21:19)
[2020-09-26] MEDS: SODIUM BICARBONATE TAB 650 MG TAB PO SCH ×3 (09:59→21:18)
[2020-09-26] MEDS: PANTOPRAZOLE 40 MG/10 ML VIAL IVP SCH (09:59)
[2020-09-26] MEDS: CHLORHEXIDINE GLUCONATE 15 ML CUP MUCOUS MEM SCH ×2 (09:59→21:34)
[2020-09-26] MEDS: METOPROLOL TARTRATE 25 MG TAB PO SCH ×2 (09:59→21:21)
[2020-09-26] MEDS: CHOLECALCIFEROL 25 MCG (1000 IU) TABLET PO SCH (09:59)
[2020-09-26] MEDS: ZINC SULFATE 220 MG CAP PO SCH (10:00)
[2020-09-26] MEDS: SODIUM CHLORIDE 0.9% 500 ML 500 ML IV SCH (10:00)
--- NOTE | 2020-09-26 10:42 | P.PN ---
Subjective Patient is seen in follow-up for acute kidney injury. Started on hemodialysis September 14. Oliguric. Status post tracheostomy and PEG tube placement this admission. Receiving tube feeding. Patient is awake. FiO2 being weaned. Vital signs are stable. General: The patient appeared well nourished and normally developed. HEENT: Tracheostomy noted. LUNGS: Breath sounds decreased. HEART: Rate and Rhythm. Abdomen: Soft, no distention. EXTREMITITES: Trace edema. Objective - Vital Signs Vital signs: Vital Signs Temp 98.7 F 09/26/20 08:00 Pulse 105 H 09/26/20 10:00 Resp 27 H 09/26/20 10:00 BP 100/43 09/26/20 10:00 Pulse Ox 98 09/26/20 10:00 Intake & Output 09/25/20 09/26/20 09/26/20 18:59 06:59 18:59 Intake Total 506.13 1307 123 Output Total 0 3320 0 Balance 506.13 -2013 123 Weight 121.6 kg 123.2 kg Intake: IV 276 276 92 0.9 Normal Saline @ KVO 240 240 80 Pressure Bag 36 36 12 Intake, IV Titration 185.13 300 Amount fentaNYL (PF). 1,000 mcg 85.13 In Sodium Chloride 0.9% 80 ml @ Per Protocol IV . Q0M [facility] Rx#:[id number] propofoL 1,000 mg In 100 300 Empty Bag 1 bag @ Titrate IV .Q0M [facility] Rx#: [id number] Tube Feeding 45 341 31 Hemodialysis 300 Other 90 Output: Urine 0 20 0 Hemodialysis 3300 Other: Voiding Method Indwelling Catheter Indwelling Catheter Indwelling Catheter ABP, PAP, CO, CI - Last Documented Arterial Blood Pressure 134/103 - Labs CBC & Chem 7: 09/26/20 04:40 09/26/20 04:40 Labs: Abnormal Lab Results - Last 24 Hours (Table) 09/25/20 09/25/20 09/25/20 Range/Units 04:50 11:53 12:13 RBC (3.80-5.40) m/uL Hgb (11.4-16.0) gm/dL Hct (34.0-46.0) % RDW (11.5-15.5) % ABG pH 7.28 L (7.35-7.45) ABG pO2 (83-108) mmHg ABG HCO3 20 L (21-25) mmol/L ABG Total CO2 (19-24) mmol/L Sodium (137-145) mmol/L BUN (7-17) mg/dL Creatinine (0.52-1.04) mg/dL Glucose (74-99) mg/dL POC Glucose (mg/dL) 262 H (75-99) mg/dL Phosphorus 7.1 H (2.5-4.5) mg/dL Total Protein (6.3-8.2) g/dL Albumin (3.5-5.0) g/dL 09/25/20 09/26/20 09/26/20 Range/Units 17:51 01:01 04:40 RBC 3.15 L (3.80-5.40) m/uL Hgb 9.0 L (11.4-16.0) gm/dL Hct 26.6 L (34.0-46.0) % RDW 16.1 H (11.5-15.5) % ABG pH (7.35-7.45) ABG pO2 (83-108) mmHg ABG HCO3 (21-25) mmol/L ABG Total CO2 (19-24) mmol/L Sodium (137-145) mmol/L BUN (7-17) mg/dL Creatinine (0.52-1.04) mg/dL Glucose (74-99) mg/dL POC Glucose (mg/dL) 227 H 166 H (75-99) mg/dL Phosphorus (2.5-4.5) mg/dL Total Protein (6.3-8.2) g/dL Albumin (3.5-5.0) g/dL 09/26/20 09/26/20 09/26/20 Range/Units 04:40 05:32 06:09 RBC (3.80-5.40) m/uL Hgb (11.4-16.0) gm/dL Hct (34.0-46.0) % RDW (11.5-15.5) % ABG pH (7.35-7.45) ABG pO2 73 L (83-108) mmHg ABG HCO3 (21-25) mmol/L ABG Total CO2 25 H (19-24) mmol/L Sodium 134 L (137-145) mmol/L BUN 41 H (7-17) mg/dL Creatinine 4.21 H (0.52-1.04) mg/dL Glucose 151 H (74-99) mg/dL POC Glucose (mg/dL) 153 H (75-99) mg/dL Phosphorus (2.5-4.5) mg/dL Total Protein 5.2 L (6.3-8.2) g/dL Albumin 2.6 L (3.5-5.0) g/dL Assessment and Plan Plan: Assessment: 1. Acute kidney injury secondary to ATN secondary to COVID-19 and DKA. Baseline creatinine is near 1. Started on hemodialysis on September 14. Has p-cath. Oliguric. No hydronephrosis noted on kidney ultrasound. 2. DKA s/p insulin drip and IV fluids. 3. Acute hypoxic respiratory failure secondary to COVID-19 pneumonia. Status post tracheostomy this admission. 4. Metabolic acidosis secondary to acute kidney injury and DKA s/p bicarb drip. Now on oral bicarbonate. 5. Hyponatremia secondary to acute kidney injury and component of hypertonicity due to hyperglycemia. Better. 6. Hyperphosphatemia secondary to acute kidney injury. Plan: Hemodialysis tomorrow. Maintain tube feeds. Avoid nephrotoxins. Continue to monitor renal function and urine output. Monitor for renal recovery. Add Renvela. Wean FiO2.
--- NOTE | 2020-09-26 10:51 | P.PN ---
Subjective Progress Note Date: 09/26/20 On 09/25/2020, the patient is being seen in follow-up in the intensive care unit. For now, the patient remains in respiratory failure, remains intubated on a mechanical ventilator. She is post, respiratory failure secondary to COVID-19 related to pneumonia with secondary ARDS. The patient remained on assist control mode at the rate of 36 and a tidal volume of 375 and FiO2 of 50% with a PEEP of 20. The peak air pressure was 43. The static pressure was 37. The blood gases from today showed a pH of 7.33 with a pCO2 of 38 and pO2 of 95. Chest x-ray still consistent with diffuse bilateral pulmonary infiltrates with bilateral multifocal and confluent opacities consistent with COVID-19 related pneumonia/ARDS. The patient has been on steroids or along the patient is still on Decadron 6 mg IV every 24 hours. The patient is also on Lovenox 60 mg subcu every 12 hours. She is requiring norepinephrine infusion low-dose of 0.01 mcg/kg per minute. She remains in renal failure. Creatinine today is at 5.65 with a BUN of 61. The net fluid balance is been +38 mL over the past 24 hours. The patient's last hemodialysis session was on 09/23/2020 with a total of 2.5 L of fluids was removed and the patient is scheduled to have another session of hemodialysis today. The patient this morning is sedated with propofol running at 50 mcg/kg per minute. Nevertheless, despite that, she is arousable and she opens her eyes spontaneously. Doesn't follow commands consistently. Her white cell count is at 9.3 with a hemoglobin of 8.5 blood sugars remain elevated and the patient is on Levemir insulin 20 units twice a day and the patient is also started on lower log 5 units every 6 hours [id number] plus a signs good coverage. The patient continues to receive enteral feeds and the patient is currently on vital high protein at the rate of 45 mL an hour. IV fluids with normal saline at the rate of 20 mL an hour. The patient is afebrile. No other significant issues overnight for now. 5 2020, ration remains on a mechanical ventilator. There is a case of COVID-19 related pneumonia/ARDS. This morning, the patient has been on assist-control at the rate of 28 with a tidal volume of 375 and FiO2 of 50% and a PEEP of 15. The peak air pressure is 37 and the plateau airway pressure is 31. The blood gas showed a pH of 7.41 with a pCO2 of 38 and pO2 of 73. Chest x-ray is showing the pulmonary infiltrates. The patient has a hemodialysis catheter in her right IJ. The pulmonary infiltrates are essentially the same probably slightly improved compared to yesterday. Note that the patient also has dialysis-dependent renal failure. She is being dialyzed periodically. Her last session of hemodialysis was yesterday where a total of 3.3 L of fluid was removed without any major dif ficulties or hemodynamic instability. The patient otherwise is awake. She is off sedation. She is watching television. She is following simple commands. Her blood work shows a white cell count of 8.5 with a stable hemoglobin of 9. Platelets is at 169. D-dimer was lower at 4.57. Albumin is at 41 with a creatinine of 4.2. No electrolyte abnormalities or disturbances at this point in time. She is receiving enteral feeding for nutritional support via PEG tube. She is receiving his vital high protein at the rate of 31 mL an hour. She is producing adequate stool which is in the form of the diarrhea and the patient has a fecal management system in place. Output is in the order of 200-300 mL on a daily basis. She has been on Lovenox 40 mg subcu on a daily basis. The patient is also on Decadron 4 mg IV every 24 hours. She is on no antibiotics for now. IV fluids are running at 20 mL an hour of normal saline. She is afebrile. She is hemodynamically stable. No other significant events over the past 24 hours. She is been off propofol for the past 3 hours. Objective - Vital Signs Vital signs: Vital Signs Temp 98.7 F 09/26/20 08:00 Pulse 105 H 09/26/20 10:00 Resp 27 H 09/26/20 10:00 BP 100/43 09/26/20 10:00 Pulse Ox 98 09/26/20 10:00 Intake & Output 09/25/20 09/26/20 09/26/20 18:59 06:59 18:59 Intake Total 506.13 1307 123 Output Total 0 3320 0 Balance 506.13 -2013 123 Weight 121.6 kg 123.2 kg Intake: IV 276 276 92 0.9 Normal Saline @ KVO 240 240 80 Pressure Bag 36 36 12 Intake, IV Titration 185.13 300 Amount fentaNYL (PF). 1,000 mcg 85.13 In Sodium Chloride 0.9% 80 ml @ Per Protocol IV . Q0M [facility] Rx#:[id number] propofoL 1,000 mg In 100 300 Empty Bag 1 bag @ Titrate IV .Q0M [facility] Rx#: [id number] Tube Feeding 45 341 31 Hemodialysis 300 Other 90 Output: Urine 0 20 0 Hemodialysis 3300 Other: Voiding Method Indwelling Catheter Indwelling Catheter Indwelling Catheter ABP, PAP, CO, CI - Last Documented Arterial Blood Pressure 134/103 - Exam GENERAL EXAM: Sedated, 35-year-old female patient, on assist control mode of ventilation with FiO2 50 percent and PEEP of 15, with a pulse ox of 89% comfortable in no apparent distress. HEAD: Normocephalic/atraumatic. EYES: Normal reaction of pupils, equal size. Conjunctiva pink, sclera white. NOSE: Clear with pink turbinates. THROAT: No erythema or exudates. NECK: Right internal jugular hemodialysis catheter placed. Tracheostomy tube secured in place. The patient has Bivona #8. No masses, no JVD, no thyroid enlargement, no adenopathy. CHEST: No chest wall deformity. Symmetrical expansion. LUNGS: Equal air entry with bilateral crackles CVS: Regular rate and rhythm, normal S1 and S2, no gallops, no murmurs, no rubs ABDOMEN: PEG tube exit site clean and dry. No hepatosplenomegaly, normal bowel sounds, no guarding or rigidity. EXTREMITIES: No clubbing, no edema, no cyanosis, 2+ pulses and upper and lower extremities. MUSCULOSKELETAL: Muscle strength and tone normal. SPINE: No scoliosis or deformity SKIN: No rashes CENTRAL NERVOUS SYSTEM: off sugar and the patient is following simple commands and moving all 4 extremities. There is obvious motor weakness with motor function of class 3-4 out of 5 in all 4 extremities. Adequate cough. Adequate gag. Pupils are equal and reactive to light. No facial asymmetry. - Labs CBC & Chem 7: 09/26/20 04:40 09/26/20 04:40 Labs: Abnormal Lab Results - Last 24 Hours (Table) 09/25/20 09/25/20 09/25/20 Range/Units 04:50 11:53 12:13 RBC (3.80-5.40) m/uL Hgb (11.4-16.0) gm/dL Hct (34.0-46.0) % RDW (11.5-15.5) % ABG pH 7.28 L (7.35-7.45) ABG pO2 (83-108) mmHg ABG HCO3 20 L (21-25) mmol/L ABG Total CO2 (19-24) mmol/L Sodium (137-145) mmol/L BUN (7-17) mg/dL Creatinine (0.52-1.04) mg/dL Glucose (74-99) mg/dL POC Glucose (mg/dL) 262 H (75-99) mg/dL Phosphorus 7.1 H (2.5-4.5) mg/dL Total Protein (6.3-8.2) g/dL Albumin (3.5-5.0) g/dL 09/25/20 09/26/20 09/26/20 Range/Units 17:51 01:01 04:40 RBC 3.15 L (3.80-5.40) m/uL Hgb 9.0 L (11.4-16.0) gm/dL Hct 26.6 L (34.0-46.0) % RDW 16.1 H (11.5-15.5) % ABG pH (7.35-7.45) ABG pO2 (83-108) mmHg ABG HCO3 (21-25) mmol/L ABG Total CO2 (19-24) mmol/L Sodium (137-145) mmol/L BUN (7-17) mg/dL Creatinine (0.52-1.04) mg/dL Glucose (74-99) mg/dL POC Glucose (mg/dL) 227 H 166 H (75-99) mg/dL Phosphorus (2.5-4.5) mg/dL Total Protein (6.3-8.2) g/dL Albumin (3.5-5.0) g/dL 09/26/20 09/26/20 09/26/20 Range/Units 04:40 05:32 06:09 RBC (3.80-5.40) m/uL Hgb (11.4-16.0) gm/dL Hct (34.0-46.0) % RDW (11.5-15.5) % ABG pH (7.35-7.45) ABG pO2 73 L (83-108) mmHg ABG HCO3 (21-25) mmol/L ABG Total CO2 25 H (19-24) mmol/L Sodium 134 L (137-145) mmol/L BUN 41 H (7-17) mg/dL Creatinine 4.21 H (0.52-1.04) mg/dL Glucose 151 H (74-99) mg/dL POC Glucose (mg/dL) 153 H (75-99) mg/dL Phosphorus (2.5-4.5) mg/dL Total Protein 5.2 L (6.3-8.2) g/dL Albumin 2.6 L (3.5-5.0) g/dL Assessment and Plan Plan: 1 Acute hypoxic respiratory failure secondary to COVID-19 pneumonia/ARDS, transferred to the intensive care unit on 09/11/2020 and intubated and placed on mechanical ventilator on 09/11/2020. Patient received 1 dose of Remdesivir on 09/11/2020, however based on her quick progression of her hypoxic respiratory failure she received Tocilizumab 800 mg on 09/11/2020. Tracheostomy and PEG tube placed on 09/18/2020. The chest x-ray findings are still stable. Nevertheless, patient has improved. I dropped the PEEP down to 12 and I'm willing to drop it down even further today based on adequate oxygenation and oxygen saturation it's been observed on the monitor. She remains on Lovenox and Decadron. She has a #[address] in place[address] 2 Acute kidney injury related to ATN, nephrology has been consulted, ultrasound of the kidneys showed no evidence of hydronephrosis. Patient was initiated on hemodialysis on 09/14/2020. Permacath placed 09/20/2020. Her last hemodialysis session was on 09/25/2020 ultrafiltration of 3.3 L. 3 Acute diabetic ketoacidosis, resolved sugar is still poorly controlled, the patient is currently on long-acting insulin in the patient's Levemir 20 units twice a day along with NovoLog 5 units 4 times a day. Blood sugars are still somewhat elevated. 4 Acute metabolic acidosis related to acute DKA, and acute kidney injury. Recovered with bicarbonate infusion 5 Increased d-dimer, related to COVID-19 pneumonia, currently on Lovenox 50 mg daily 6 Possible sepsis with increased pro-calcitonin suggesting presence of bacterial infection, cultures have been sent and all negative 7 Diabetes mellitus type 2 8 Morbid obesity with BMI 45.3 kg/m 9 Nonsmoker Plan Dropped the PEEP down to 12 and keep the tidal volume of 375. Will drop the respiratory rate down to 28, FiO2 of 40%. Off the sedation and the patient has adequate mentation. Use Dilaudid if needed 1 mg every 4 hours. Drop Lovenox dose to 40 mg subcu daily Dialysis was done yesterday with a total of 3.3 L of ultrafiltration. Follow-up dialysis tomorrow. Enteral feeding for nutrition support in the form of vital high protein at the rate of 45 mL an hour Decadron 4 mg IV every 24 hours Continue Levemir insulin 20 units twice a day and keep the NovoLog 5 units every 6 hours along with a sliding scale coverage. We'll increase the maintenance Levemir dose if needed depending on her blood sugar control. Condition is critical we'll continue to follow make further recommendations based on her progress. This is a critically care evaluation that was on a more than 30 minutes. Time with Patient: Greater than 30
--- NOTE | 2020-09-26 11:00 | P.PN ---
Subjective Progress Note Date: 09/26/20 HISTORY OF PRESENT ILLNESS 35-year-old female patient of Dr. Arroyo with past medical history of type 2 diabetes comes in with acute shortness of breath associated with high light s ugars. Patient on admission was found to have a fever of 101.5 pulse rate 125 respiratory rate 20. Blood pressure 132/106. On chest x-ray obtained in the ER suggestive of bilateral infiltrates concerning for call with pneumonia. COVID PCR was positive. On admissions patient had an ABG with a pH of 7.14 pCO2 of 20, pO2 of 59, bicarb of 7. Patient's blood sugar on admission was 424 on assessment today patient's blood work patient had a sodium 135 potassium 5.4 chloride 123 bicarb less than 5 and creatinine 0.73. D-dimer was elevated on admission patient 9 28 patient given 1 L of IV fluids followed by normal saline running at 200 mL/h. Patient was positive for acetone on admission. She will anion gap closed and was switched to D5NS. Insulin drip was continued during the night and was switched to patient's home medication this morning. One dose of remdesiver was ordered. Apparently around noon, A- team was called on the patient secondary to hypoxia patient's oxygen saturation dropped to the 70s and 80s on 100% nonrebreather. Patient was switched to BiPAP on 18/12 and is doing better o FiO2 of 80%. ABG was obtained and ph was 7. 14 pCO2 of 28 bicarb of 7 pO2 of 17. Patient noted to have uncompensated metabolic acidosis with compensated respiratory alkalosis. Stat dose of 1 amp bicarb was given and followed by sodium bicarbonate drip. Insulin drip restarted. Patient's initiated on dexamethasone 6 mg IV twice a day. Potassium phosphate ordered as phosphorus is low. Patient's repeat blood gases suggest a pH of 7.25, CO2 32 pO2 of 72 bicarb 14. I will not normal saline at 100 mL/h as patient's anion gap has increased. Patient given 1 dose of 2 mg of morphine with improvement in respiratory rate. One dose of Ativan 0.5 mg was given. Xanax 0.25 twice a day along with Ativan 0.5 IV every 6 hours ordered for the patient. Vitals were evaluated patient pulse 129 [id number]. She was moved to the ICU. Precedex drip was initiated. Lopressor was initiated at 25 twice a day. Metoprolol tartrate 5 mg IV every 6 hours. Systolic blood pressure more than 160. Started chest x-ray was obtained and suggest stable bilateral consolidation suggestive of COVID-19 pneumonia. 09/12 patient is seen in the ICU is currently mechanically ventilated and sedated on vent settings of respiratory rate 36, tidal volume 375 FiO2 80% PEEP of 18.. Vital signs reviewed patient had a temp of 100.4 pulse 150 respiratory rate 36 oxygen saturation 95% on 80% on fio2 .'s labs are reviewed which patient had a d-dimer 1.84 that is increased to 14.3. Arterial Blood gas suggest ph 7.35, CO2 40, po2 62, . Her BMP suggest a sodium 135 potassium 3.7 chloride 112 bicarb 21 creatinine 1.57 for calcitonin is 3.5 CRP is increased from 8.78.2 LDH is increased to 2614. Patient remains on Pneumovax, propofol drip. Lovenox increased to 50 subcu twice a day. Patient received 2 L of IV fluids. Continue IV fluids at 100 mL/h. Bicarb drip discontinued patient initiated on Zosyn 3.375 every 8 hours. Continue insulin drip at 4 units per hour. Patient is currently in prone positioning 09/13: Patient evaluated in the ICU remains on Ventilation continues to be sedated, in prone position. Vent settings are respiratory rate 36, tidal vital 375, FiO2 70% PEEP of 18. ABG shows pO2 of 82, PCO2 of 39, pH is 7.19. Latest labs show WBC 11.1, hemoglobin 13.2, d-dimer still pending, but yesterday was up to 14.3. Creatinine up to 3.4, BUN 24 sodium 137, potassium 4.0. Patient's urine output has been low, nephrology on consult. Bicarb drip increased to 100 miles an hour, receiving another liter of normal saline, she did have a ultrasound that showed unremarkable bilateral kidneys. Repeat chest x-ray showed bilateral lung infiltrates that are stable. Anion gap has closed, will start Lantus 10 units at at bedtime Novolog every 6 hours. 09/14: Patient is seen in the ICU, still currently mechanically ventilated and sedated. She continues in the prone position. Her oxygen quickly drops if she is not in prone. Patient's kidney function has worsened. Laboratory values show creatinine of 4.87, BUN 33, LDH 2191, C-reactive protein 2.7. ABG shows pH 7.32, pO2 of 60, pCO2 43. Patient is making almost no urine overnight. Nephrology is following patient continues on cefepime for urinary tract infection, culture is still pending. Vascular has been consulted for placement of temporary hemodialysis catheter for plans for dialysis. 09/15: Patient evaluated in the ICU, continues to be mechanically ventilated and sedated on assist control ventilation rate of 36, tidal volume 375, FiO2 100% and PEEP of 18. ABG today shows pO2 58, pCO2 of 45, and pH 7.35. She continues on tube feedings. Yesterday patient underwent ultrasound-guided right internal jugular non-tunneled hemodialysis catheter placement. Patient underwent hemodialysis treatment last night and plans have another hemodialysis treatment today. She continues to make almost no urine. She continues on cefepime for antibiotic coverage, and continues on Decadron and Lovenox. 09/16: Patient seen on follow-up remains in the ICU mechanically ventilated and sedated. She continues on assist control rate of 36, tidal volume 375, FiO2 100% and PEEP of 20. PEEP had to be increased due to patient had to be in supine position for dialysis, will go back to prone position once dialysis is complete. ABG shows pH 7.32, pCO2 49, PaO2 61. Laboratory values showed WBC 11.2, hemoglobin 11, sodium 134, creatinine 4.44, BUN 38. Urine culture shows no growth, blood cultures show no growth to date. Repeat chest x-ray shows bilateral pleural effusions, correlate for ARDS, pulmonary edema, diffuse pneumonia, findings are stable from last exam. Patient does not require any pressors, blood pressure 133/57, heart rate 78. 5/16: Patient was evaluated in the ICU today for follow-up. She continues to be intubated and on mechanical ventilation. Current vent settings are tidal volume 375, FiO2 100% and PEEP of 20. ABG shows pH 7.37, pCO2 40, pO2 102. She continues with intermittent prone positioning. Patient continues to have almost no urine output, maintained on dialysis. Patient received dialysis yesterday without complication. Laboratory values revealed WBC 10.3, hemoglobin 10.4, sodium 132, potassium 3.1, BUN 33, creatinine 4.29, LDH 1913, C-reactive protein 1.3. Urine and sputum cultures are negative, blood cultures show no growth to date. Consult placed to dietary to start TPN[ ] 09/18: She remains in the intensive care unit intubated and on mechanical ventilation with tidal volume 375, FiO2 60 and PEEP of 20. Patient is being prone to daily at approximately 16 hours per day. Pulmonary medicine has added in Dr. Zhang to do PEG tube and trach today. Patient is not on vasopressors. Repeat blood work reveals WBC 12.6, hemoglobin 9.8, platelet count 212. Sodium 133, potassium 3.2, chloride 102, CO2 21, BUN 35 and creatinine 4.12. Blood sugar 126. Patient underwent hemodialysis yesterday with removal of 2 L and is scheduled again today with goal of 2-3 L and is scheduled again tomorrow. 09/19: She is scheduled for hemodialysis today and is off fentanyl temporarily. Patient is status post trach and PEG tube yesterday. And she remains on mechanical ventilation. Pulse ox 93-95%. She has been afebrile, heart rate 64, respiratory rate 36, blood pressure 115/50. Fentanyl is off to improve blood pressure for hemodialysis which is scheduled for today. Contacted vascular surgery about permanent hemodialysis catheter. Repeat blood work reveals WBC 14.3, hemoglobin 9.6, platelet count 200. D-dimer 6.48. LDH 1686. C-reactive protein 1.1. BUN 34 creatinine 3.81. Sodium 130, potassium 3.5, chloride 101, CO2 18. Blood sugars running between 101 198. Plan is to wean off Pneumovax today. Patient remains on insulin drip. Repeat chest x-ray reveals bilateral multifocal confluent opacities consistent with COVID-19. Some improved aeratio n periphery of the left lung and worsening opacities throughout the right lung. 09/20: She remains in the intensive care unit on mechanical ventilation. She has been afebrile, heart rate 65, respiratory rate 37, blood pressure 121/70, pulse ox 91-99%. Repeat blood work reveals WBC 14.5, hemoglobin 9.1, platelet count 216. D-dimer 6.13. Sodium 133, potassium 3.1, chloride 102, CO2 18, BUN 35 and creatinine 4.27. Blood sugars running between 128 and 143. LDH 1717. C- reactive protein 1.7. Patient remains on insulin drip which will be transitioned to NovoLog scale every 6 hours. Patient is scheduled for permanent hemodialysis catheter placement today with vascular surgery. Repeat chest x-ray reveals stable diffuse bilateral interstitial and airspace disease. Possible small right effusion. His work is following for transfer to snf care facility. Do not anticipate discharge until next week. 09/21: Patient is undergoing hemodialysis. She remains on mechanical ventilation with tidal volume 375, FiO2 down to 45 and PEEP was decreased to 15. Patient is continued on propofol, fentanyl drips. She is on tube feedings at goal. Patient was taken off insulin drip yesterday and on scale only but blood sugars are running in the 200s, Levemir scheduled at bedtime will be added. Other blood work reveals WBC 13.3, hemoglobin 8.7, platelet count 192. Sodium 137, potassium 3.6, chloride 107, CO2 18, BUN 34 and creatinine 4.21. Repeat chest x-ray is stable. 09/22: She remains in the intensive care on mechanical ventilation with tidal volume 375, FiO2 of 50 and PEEP of 10. Pulse ox is running 96%. She is afebrile, heart rate in the 50s, respiratory rate 36, blood pressure 100/64. Repeat blood work reveals WBC 16.5, hemoglobin 8.9, platelet count 213. Sodium 134, potassium 3.7, chloride 103, CO2 21, BUN 34 and creatinine 3.89. Blood sugars running in the 200s to 324. Levemir increased to 16 units at bedtime and continue NovoLog scale every 6 hours. Patient is on tube feedings at goal. She has a Haley catheter in with a scant amount of dark/brown urine. Fecal management system is in place. Repeat chest x-ray reveals diffuse bilateral airspace infiltrates persist unchanged. Patient is scheduled for hemodialysis tomorrow morning on Friday. 09/23: Patient remains on mechanical ventilation with tidal volume 3.75, FiO2 50 and PEEP of 10. shelter monitor sinus rhythm. She has no urine output. Fecal management system is in place. She is undergoing dialysis at this time with plan for removal of 2-1/2 L. She has been afebrile, heart rate in the 50s, respiratory rate 36, blood pressure 108/76 and pulse ox 89%. WBC 13.6, hemoglobin 9.1, platelet count 194. Sodium 136, potassium 3.0 and was replaced, chloride 106, CO2 21, BUN 49 creatinine 5.31. Blood sugars are running between 182 and this morning 194. Patient was still in the 200s and 300s. Levemir last evening was increased to 16 units. Patient remains on propofol and fentanyl drips. Lovenox was increased to 60 mg twice daily. 09/24: PEEP was increased today to 20, tidal volume is at 375 and FiO2 of 50%. Patient has been afebrile. She has been started on levo fed. Repeat chest x- ray reveals bilateral multifocal confluent opacities consistent with Covid 19 or ARDS redemonstrated. Nephrology will plan dialysis for tomorrow for 3 L. Patient remains on propofol fentanyl and Nimbex. WBC 12.5, hemoglobin 9.8, platelet count 161. D-dimer 13.3. Sodium 132, potassium 3.4, chloride 102, CO2 20, BUN 48 and creatinine 4.67. Blood sugars extremely elevated to 96-409. LDH 2217. 09/25: Patient remains in the intensive care unit on mechanical ventilation with tidal volume 375, FiO2 50 and PEEP of 20. Patient is afebrile, heart rate 61, respiratory rate 36, blood pressure 102/56, pulse ox 97%. Repeat blood work reveals WBC 9.3, hemoglobin 8.5 and platelet count 171. Sodium 130, potassium 3.7, chloride 100, CO2 20, BUN 61 creatinine 5.65. Blood sugars have been elev ated up to 455. Levemir increased to 20 units twice daily, NovoLog 5 units every 6 hours and continue NovoLog scale. Patient is scheduled for hemodialysis today. Repeat chest x-ray reveals bilateral multifocal and confluent opacities. Decadron and Lovenox dosing change by pulmonary. Patient is off norepinephrine. 09/26: Patient remains in the intensive care unit on mechanical ventilation with tidal volume 375, FiO2 50 and PEEP of 15. She has been afebrile, heart rate 91, blood pressure 114/68, pulse ox 99%. shelter monitor sinus rhythm. 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 Sodium 134, potassium 3.6, chloride 102, CO2 22, BUN 41 creatinine 4.21. Patient has improved blood sugars this morning running 150s and 160s. Diabetic medications were adjusted yesterday. Patient is awake and alert and interacting. Yesterday, patient had PICC line inserted by interventional radiology. Repeat chest x-ray reveals diffuse airspace infiltrates in both lung ann appear to progress slightly in the interval. REVIEW OF SYSTEMS Unable to obtain due to intubation. PHYSICAL EXAMINATION Gen: This is is a 35-year-old black female, patient is intubated and on mechanical ventilation, appears to be comfortable. HEENT: Head is atraumatic, normocephalic. Pupils equal, round. Sclerae is anicteric. Tracheostomy tube in place. NECK: Supple. No JVD. No lymphadenopathy. No thyromegaly. LUNGS: Scattered bilateral rhonchi. No intercostal retractions. HEART: Regular rate and rhythm. No murmur. ABDOMEN: Soft. Bowel sounds are present. No masses. No tenderness. PEG tube in place, area clean and dry. Fecal management system in place with brown stool. EXTREMITIES: No pedal edema. No calf tenderness. Dorsalis pedis +2 bilaterally. NEUROLOGICAL: Patient is awake, alert and able to follow simple commands, confused. ASSESSMENT AND PLAN 1. Acute hypoxic respiratory failure secondary to Covid 19 pneumonia and possible bacterial pneumonia. Patient was intubated on September 11. She is status post 1 dose of Remdesivir and 1 dose of Tocilizumab. Continue Ventolin inhaler 4 times daily, Symbicort twice daily, Decadron 4 mg IV daily, Lovenox 30 mg subcu daily, supplements. Status post PEG tube and trach. 2. Acute diabetic ketoacidosis secondary to Covid 19 pneumonia, uncontrolled with hyperglycemia. Levemir increased to 20 units twice daily, scheduled NovoLog 5 units every 6 hours and NovoLog scale. 3. Metabolic encephalopathy secondary to Covid 19 and DKA. 4. Sepsis and septic shock secondary to Covid 19 pneumonia. Continue as in #1. 5. Acute metabolic acidosis secondary to acute DKA, Covid 19 and acute kidney injury. 6. Diabetes mellitus type 2 uncontrolled with A1c 13.6. Continue Levemir increased to 20 units twice daily, NovoLog 5 units every 6 hours, and NovoLog scale every 6 hours. 7. Hypophosphatemia status post replacement. 8. Hyperkalemia secondary to DKA, resolved. 9. Sinus tachycardia secondary to sepsis, volume deficiency.Continue Lopressor 25 mg twice daily. 10. Acute kidney injury secondary to ATN secondary to Covid 19 and DKA. Patient continued on hemodialysis. Permanent dialysis catheter placed. 11. Hypertension. 12. Morbid obesity with BMI of 53. 13. DVT prophylaxis. Lovenox. 14. GI prophylaxis. Protonix 40 mg IV push daily. CODE STATUS: Full code Prognosis guarded. Impression and plan of care have been directed as dictated by the signing physician. Kimberly Boswell nurse practitioner acting as scribe for signing physician. Objective - Vital Signs Vital signs: Vital Signs Temp 98.7 F 09/26/20 08:00 Pulse 91 09/26/20 09:00 Resp 33 H 09/26/20 09:00 BP 104/52 09/26/20 09:00 Pulse Ox 100 09/26/20 09:00 Intake & Output 09/25/20 09/26/20 09/26/20 18:59 06:59 18:59 Intake Total 506.13 1307 100 Output Total 0 3320 0 Balance 506.13 -2013 100 Weight 121.6 kg 123.2 kg Intake: IV 276 276 69 0.9 Normal Saline @ KVO 240 240 60 Pressure Bag 36 36 9 Intake, IV Titration 185.13 300 Amount fentaNYL (PF). 1,000 mcg 85.13 In Sodium Chloride 0.9% 80 ml @ Per Protocol IV . Q0M [facility] Rx#:[id number] propofoL 1,000 mg In 100 300 Empty Bag 1 bag @ Titrate IV .Q0M [facility] Rx#: [id number] Tube Feeding 45 341 31 Hemodialysis 300 Other 90 Output: Urine 0 20 0 Hemodialysis 3300 Other: Voiding Method Indwelling Catheter Indwelling Catheter Indwelling Catheter ABP, PAP, CO, CI - Last Documented Arterial Blood Pressure 100/52 - Labs CBC & Chem 7: 09/26/20 04:40 09/26/20 04:40 Labs: Abnormal Lab Results - Last 24 Hours (Table) 09/25/20 09/25/20 09/25/20 Range/Units 04:50 11:53 12:13 RBC (3.80-5.40) m/uL Hgb (11.4-16.0) gm/dL Hct (34.0-46.0) % RDW (11.5-15.5) % ABG pH 7.28 L (7.35-7.45) ABG pO2 (83-108) mmHg ABG HCO3 20 L (21-25) mmol/L ABG Total CO2 (19-24) mmol/L Sodium (137-145) mmol/L BUN (7-17) mg/dL Creatinine (0.52-1.04) mg/dL Glucose (74-99) mg/dL POC Glucose (mg/dL) 262 H (75-99) mg/dL Phosphorus 7.1 H (2.5-4.5) mg/dL Total Protein (6.3-8.2) g/dL Albumin (3.5-5.0) g/dL 09/25/20 09/26/20 09/26/20 Range/Units 17:51 01:01 04:40 RBC 3.15 L (3.80-5.40) m/uL Hgb 9.0 L (11.4-16.0) gm/dL Hct 26.6 L (34.0-46.0) % RDW 16.1 H (11.5-15.5) % ABG pH (7.35-7.45) ABG pO2 (83-108) mmHg ABG HCO3 (21-25) mmol/L ABG Total CO2 (19-24) mmol/L Sodium (137-145) mmol/L BUN (7-17) mg/dL Creatinine (0.52-1.04) mg/dL Glucose (74-99) mg/dL POC Glucose (mg/dL) 227 H 166 H (75-99) mg/dL Phosphorus (2.5-4.5) mg/dL Total Protein (6.3-8.2) g/dL Albumin (3.5-5.0) g/dL 09/26/20 09/26/20 09/26/20 Range/Units 04:40 05:32 06:09 RBC (3.80-5.40) m/uL Hgb (11.4-16.0) gm/dL Hct (34.0-46.0) % RDW (11.5-15.5) % ABG pH (7.35-7.45) ABG pO2 73 L (83-108) mmHg ABG HCO3 (21-25) mmol/L ABG Total CO2 25 H (19-24) mmol/L Sodium 134 L (137-145) mmol/L BUN 41 H (7-17) mg/dL Creatinine 4.21 H (0.52-1.04) mg/dL Glucose 151 H (74-99) mg/dL POC Glucose (mg/dL) 153 H (75-99) mg/dL Phosphorus (2.5-4.5) mg/dL Total Protein 5.2 L (6.3-8.2) g/dL Albumin 2.6 L (3.5-5.0) g/dL
[2020-09-26 11:33] LABS: Glucose,Whole Blood 155 mg/dL (75-99)
--- NOTE | 2020-09-26 11:37 | P.PN ---
Subjective Progress Note Date: 09/26/20 CHIEF COMPLAINT: COVID-19 pneumonia HISTORY OF PRESENT ILLNESS: Patient is in the ICU for COVID-19 pneumonia and respiratory failure. She is status post tracheostomy and PEG tube placement with Dr. hollis. Patient is tolerating tube feedings. Her tube feedings are at goal at 31 mL per hour. She is having stools and his fecal management system in place. Patient remains on mechanical ventilation. Her PEEP has been decreased to 12. Patient is been weaned off sedation. She is currently awake. Also social work is working on discharge placement for patient. She is afebrile. WBC is 9.3. Patient seen and examined with Dr. hollis PHYSICAL EXAM: VITAL SIGNS: Reviewed. GENERAL: Well-developed in no acute distress. HEENT: No sclera icterus. Extraocular movements grossly intact. Moist buccal mucosa. Head is atraumatic, normocephalic. Tracheostomy site clean dry and intact. No evidence of bleeding ABDOMEN: Soft. Nondistended. Nontender. PEG tube site clean dry and intact NEUROLOGIC: Awake and following commands ASSESSMENT: 1. Acute hypoxic respiratory failure with prolonged mechanical ventilation due to COVID-19 pneumonia status post tracheostomy placement 2. Severe protein calorie malnutrition status post PEG tube placement PLAN: -Continue tube feedings -Continue supportive care -Continue ICU management Physician Control Specialist note has been reviewed by physician. Signing provider agrees with the documented findings, assessment, and plan of care. Objective - Vital Signs Vital signs: Vital Signs Temp 98.7 F 09/26/20 08:00 Pulse 96 09/26/20 11:00 Resp 34 H 09/26/20 11:00 BP 118/62 09/26/20 11:00 Pulse Ox 95 09/26/20 11:00 Intake & Output 09/25/20 09/26/20 09/26/20 18:59 06:59 18:59 Intake Total 506.13 1307 146 Output Total 0 3320 0 Balance 506.13 -2012 146 Weight 121.6 kg 123.2 kg Intake: IV 276 276 115 0.9 Normal Saline @ KVO 240 240 100 Pressure Bag 36 36 15 Intake, IV Titration 185.13 300 Amount fentaNYL (PF). 1,000 mcg 85.13 In Sodium Chloride 0.9% 80 ml @ Per Protocol IV . Q0M [facility] Rx#:[id number] propofoL 1,000 mg In 100 300 Empty Bag 1 bag @ Titrate IV .Q0M [facility] Rx#: [id number] Tube Feeding 45 341 31 Hemodialysis 300 Other 90 Output: Urine 0 20 0 Hemodialysis 3300 Other: Voiding Method Indwelling Catheter Indwelling Catheter Indwelling Catheter ABP, PAP, CO, CI - Last Documented Arterial Blood Pressure 156/71 - Labs CBC & Chem 7: 09/26/20 04:40 09/26/20 04:40 Labs: Abnormal Lab Results - Last 24 Hours (Table) 09/25/20 09/25/20 09/25/20 Range/Units 04:50 11:53 12:13 RBC (3.80-5.40) m/uL Hgb (11.4-16.0) gm/dL Hct (34.0-46.0) % RDW (11.5-15.5) % ABG pH 7.28 L (7.35-7.45) ABG pO2 (83-108) mmHg ABG HCO3 20 L (21-25) mmol/L ABG Total CO2 (19-24) mmol/L Sodium (137-145) mmol/L BUN (7-17) mg/dL Creatinine (0.52-1.04) mg/dL Glucose (74-99) mg/dL POC Glucose (mg/dL) 262 H (75-99) mg/dL Phosphorus 7.1 H (2.5-4.5) mg/dL Total Protein (6.3-8.2) g/dL Albumin (3.5-5.0) g/dL 09/25/20 09/26/20 09/26/20 Range/Units 17:51 01:01 04:40 RBC 3.15 L (3.80-5.40) m/uL Hgb 9.0 L (11.4-16.0) gm/dL Hct 26.6 L (34.0-46.0) % RDW 16.1 H (11.5-15.5) % ABG pH (7.35-7.45) ABG pO2 (83-108) mmHg ABG HCO3 (21-25) mmol/L ABG Total CO2 (19-24) mmol/L Sodium (137-145) mmol/L BUN (7-17) mg/dL Creatinine (0.52-1.04) mg/dL Glucose (74-99) mg/dL POC Glucose (mg/dL) 227 H 166 H (75-99) mg/dL Phosphorus (2.5-4.5) mg/dL Total Protein (6.3-8.2) g/dL Albumin (3.5-5.0) g/dL 09/26/20 09/26/20 09/26/20 Range/Units 04:40 05:32 06:09 RBC (3.80-5.40) m/uL Hgb (11.4-16.0) gm/dL Hct (34.0-46.0) % RDW (11.5-15.5) % ABG pH (7.35-7.45) ABG pO2 73 L (83-108) mmHg ABG HCO3 (21-25) mmol/L ABG Total CO2 25 H (19-24) mmol/L Sodium 134 L (137-145) mmol/L BUN 41 H (7-17) mg/dL Creatinine 4.21 H (0.52-1.04) mg/dL Glucose 151 H (74-99) mg/dL POC Glucose (mg/dL) 153 H (75-99) mg/dL Phosphorus (2.5-4.5) mg/dL Total Protein 5.2 L (6.3-8.2) g/dL Albumin 2.6 L (3.5-5.0) g/dL 09/26/20 Range/Units 11:31 RBC (3.80-5.40) m/uL Hgb (11.4-16.0) gm/dL Hct (34.0-46.0) % RDW (11.5-15.5) % ABG pH (7.35-7.45) ABG pO2 (83-108) mmHg ABG HCO3 (21-25) mmol/L ABG Total CO2 (19-24) mmol/L Sodium (137-145) mmol/L BUN (7-17) mg/dL Creatinine (0.52-1.04) mg/dL Glucose (74-99) mg/dL POC Glucose (mg/dL) 155 H (75-99) mg/dL Phosphorus (2.5-4.5) mg/dL Total Protein (6.3-8.2) g/dL Albumin (3.5-5.0) g/dL
[2020-09-26] MEDS: SEVELAMER 800 MG TAB PO SCH ×2 (12:30→18:53)
[2020-09-26] MEDS: HYDROmorphone 1 MG/ML 1 ML SYRINGE IVP PRN ×2 (12:33→21:22)
[2020-09-26 18:58] LABS: Glucose,Whole Blood 148 mg/dL (75-99)
[2020-09-27 00:22] LABS: Glucose,Whole Blood 117 mg/dL (75-99)
[2020-09-27] MEDS: INSULIN ASPART (NovoLOG) 100 UNIT/ML VIAL SQ SCH ×8 (00:29→18:15)
[2020-09-27] MEDS: HYDROmorphone 1 MG/ML 1 ML SYRINGE IVP PRN ×3 (00:38→21:21)
[2020-09-27 05:21] LABS: Glucose,Whole Blood 93 mg/dL (75-99)
[2020-09-27 05:32] LABS: Basophils % (A) 0 %; Eosinophils # (A) 0.1 k/uL (0-0.7); Eosinophils % (A) 2 %; HCT 23.5 % (34.0-46.0); HGB 8.1 gm/dL (11.4-16.0); Lymphocytes # (A) 0.7 k/uL (1.0-4.8); Lymphocytes % (A) 10 %; MCH 28.7 pg (25.0-35.0); MCHC 34.3 g/dL (31.0-37.0); MCV 83.6 fL (80.0-100.0); Monocytes # (A) 0.4 k/uL (0-1.0); Monocytes % (A) 6 %; Neutrophils # (A) 5.7 k/uL (1.3-7.7); Neutrophils % (A) 80 %; Platelet Count 152 k/uL (150-450); Poikilocytosis Slight; RBC 2.81 m/uL (3.80-5.40); RDW 15.7 % (11.5-15.5); WBC 7.1 k/uL (3.8-10.6)
[2020-09-27 05:35] LABS: ABG Base Excess -2.3 mmol/L; ABG HCO3 22 mmol/L (21-25); ABG Oxygen Saturation 94.4 % (94-97); ABG PCO2 35 mmHg (35-45); ABG PH 7.41 (7.35-7.45); ABG PO2 74 mmHg (83-108); ABG TCO2 23 mmol/L (19-24); Allen Test Performed? Yes
[2020-09-27 05:46] LABS: Albumin 2.3 g/dL (3.5-5.0); Calcium 9.1 mg/dL (8.4-10.2); Potassium 3.6 mmol/L (3.5-5.1); Total Bilirubin 0.2 mg/dL (0.2-1.3)
[2020-09-27] MEDS: INSULIN DETEMIR (LEVEMIR) 100 UNIT/ML SYR SQ SCH ×2 (06:43→21:22)
--- NOTE | 2020-09-27 08:04 | XR ---
EXAMINATION TYPE: XR chest 1V portable DATE OF EXAM: 09/27/2020 Comparison: 09/26/2020 Clinical History: 35 year-old female shortness of breath SOB Findings: Tracheostomy cannula is present. Right PICC tip at the lower SVC. Right-sided double-lumen hemodialys is catheter with tips at the cavoatrial junction. Continued cardiomegaly and bilateral patchy and con fluent airspace opacities, slightly improved on the left but slightly worsened on the right. Impression: Continued cardiomegaly and pulmonary edema, overall similar, with some shifting opacities.
[2020-09-27] MEDS ORDERED: ENOXAPARIN 30 MG/0.3 ML SYRINGE SQ SCH (09:00)
[2020-09-27] MEDS: PANTOPRAZOLE 40 MG/10 ML VIAL IVP SCH (09:05)
[2020-09-27] MEDS: METOPROLOL TARTRATE 25 MG TAB PO SCH ×2 (09:05→21:21)
[2020-09-27] MEDS: ZINC SULFATE 220 MG CAP PO SCH (09:05)
[2020-09-27] MEDS: CHOLECALCIFEROL 25 MCG (1000 IU) TABLET PO SCH (09:05)
[2020-09-27] MEDS: SEVELAMER 800 MG TAB PO SCH ×3 (09:05→17:06)
[2020-09-27] MEDS: SODIUM BICARBONATE TAB 650 MG TAB PO SCH ×3 (09:05→21:21)
[2020-09-27] MEDS: ASCORBIC ACID 500 MG TAB PO SCH ×2 (09:05→21:21)
[2020-09-27] MEDS: CHLORHEXIDINE GLUCONATE 15 ML CUP MUCOUS MEM SCH ×2 (09:06→21:24)
[2020-09-27] MEDS: DEXAMETHASONE SOD PHOSPHATE 4 MG/ML 1 ML VIAL IV SCH (09:06)
[2020-09-27] MEDS: SYMBICORT 160-4.5 MCG INHALER INHALATION SCH ×2 (09:22→21:21)
[2020-09-27] MEDS: ALBUTEROL HFA INHALER INHALATION SCH ×4 (09:22→21:21)
[2020-09-27] MEDS: SODIUM CHLORIDE 0.9% 500 ML 500 ML IV SCH (10:52)
--- NOTE | 2020-09-27 11:01 | P.PN ---
Subjective Patient is seen in follow-up for acute kidney injury. Started on hemodialysis September 14. Oliguric. Status post tracheostomy and PEG tube placement this admission. Receiving tube feeding. Patient is awake. FiO2 being weaned. No changes overnight. Vital signs are stable. General: The patient appeared well nourished and normally developed. HEENT: Tracheostomy noted. LUNGS: Breath sounds decreased. HEART: Rate and Rhythm. Abdomen: Soft, no distention. EXTREMITITES: Trace edema. Objective - Vital Signs Vital signs: Vital Signs Temp 98.1 F 09/27/20 08:00 Pulse 60 09/27/20 10:00 Resp 24 09/27/20 10:00 BP 147/75 09/27/20 10:00 Pulse Ox 95 09/27/20 10:00 Intake & Output 09/26/20 09/27/20 09/27/20 18:59 06:59 18:59 Intake Total 307 679 289 Output Total 10 10 1225 Balance 297 669 -936 Weight 120.4 kg Intake: IV 276 276 92 0.9 Normal Saline @ KVO 240 240 80 Pressure Bag 36 36 12 Tube Feeding 31 403 107 Other 90 Output: Urine 10 10 25 Stool 1200 Other: Voiding Method Indwelling Catheter Indwelling Catheter Indwelling Catheter ABP, PAP, CO, CI - Last Documented Arterial Blood Pressure 165/72 - Labs CBC & Chem 7: 09/27/20 05:14 09/27/20 05:14 Labs: Abnormal Lab Results - Last 24 Hours (Table) 09/26/20 09/26/20 09/27/20 Range/Units 11:31 18:56 00:20 RBC (3.80-5.40) m/uL Hgb (11.4-16.0) gm/dL Hct (34.0-46.0) % RDW (11.5-15.5) % Lymphocytes # (1.0-4.8) k/uL ABG pO2 (83-108) mmHg Sodium (137-145) mmol/L Carbon Dioxide (22-30) mmol/L BUN (7-17) mg/dL Creatinine (0.52-1.04) mg/dL POC Glucose (mg/dL) 155 H 148 H 117 H (75-99) mg/dL Total Protein (6.3-8.2) g/dL Albumin (3.5-5.0) g/dL 09/27/20 09/27/20 09/27/20 Range/Units 05:14 05:14 05:30 RBC 2.81 L (3.80-5.40) m/uL Hgb 8.1 L (11.4-16.0) gm/dL Hct 23.5 L (34.0-46.0) % RDW 15.7 H (11.5-15.5) % Lymphocytes # 0.7 L (1.0-4.8) k/uL ABG pO2 74 L (83-108) mmHg Sodium 135 L (137-145) mmol/L Carbon Dioxide 21 L (22-30) mmol/L BUN 53 H (7-17) mg/dL Creatinine 5.88 H (0.52-1.04) mg/dL POC Glucose (mg/dL) (75-99) mg/dL Total Protein 5.0 L (6.3-8.2) g/dL Albumin 2.3 L (3.5-5.0) g/dL Assessment and Plan Plan: Assessment: 1. Acute kidney injury secondary to ATN secondary to COVID-19 and DKA. Baseline creatinine is near 1. Started on hemodialysis on September 14. Has p-cath. Oliguric. No hydronephrosis noted on kidney ultrasound. 2. DKA s/p insulin drip and IV fluids. 3. Acute hypoxic respiratory failure secondary to COVID-19 pneumonia. Status post tracheostomy this admission. 4. Metabolic acidosis secondary to acute kidney injury and DKA s/p bicarb drip. Now on oral bicarbonate. 5. Hyponatremia secondary to acute kidney injury and component of hypertonicity due to hyperglycemia. Better. 6. Hyperphosphatemia secondary to acute kidney injury. Maintained on Renvela. 7. Anemia of chronic illness and kidney disease. Plan: Currently seen was undergoing hemodialysis. Next treatment on Friday. Maintain tube feeds. Avoid nephrotoxins. Continue to monitor renal function and urine output. Monitor for renal recovery. Wean FiO2. Add Aranesp. Check iron studies.
--- NOTE | 2020-09-27 11:08 | P.PN ---
Subjective Progress Note Date: 09/27/20 On 09/25/2020, the patient is being seen in follow-up in the intensive care unit. For now, the patient remains in respiratory failure, remains intubated on a mechanical ventilator. She is post, respiratory failure secondary to COVID-19 related to pneumonia with secondary ARDS. The patient remained on assist control mode at the rate of 36 and a tidal volume of 375 and FiO2 of 50% with a PEEP of 20. The peak air pressure was 43. The static pressure was 37. The blood gases from today showed a pH of 7.33 with a pCO2 of 38 and pO2 of 95. Chest x-ray still consistent with diffuse bilateral pulmonary infiltrates with bilateral multifocal and confluent opacities consistent with COVID-19 related pneumonia/ARDS. The patient has been on steroids or along the patient is still on Decadron 6 mg IV every 24 hours. The patient is also on Lovenox 60 mg subcu every 12 hours. She is requiring norepinephrine infusion low-dose of 0.01 mcg/kg per minute. She remains in renal failure. Creatinine today is at 5.65 with a BUN of 61. The net fluid balance is been +38 mL over the past 24 hours. The patient's last hemodialysis session was on 09/23/2020 with a total of 2.5 L of fluids was removed and the patient is scheduled to have another session of hemodialysis today. The patient this morning is sedated with propofol running at 50 mcg/kg per minute. Nevertheless, despite that, she is arousable and she opens her eyes spontaneously. Doesn't follow commands consistently. Her white cell count is at 9.3 with a hemoglobin of 8.5 blood sugars remain elevated and the patient is on Levemir insulin 20 units twice a day and the patient is also started on lower log 5 units every 6 hours [id number] plus a signs good coverage. The patient continues to receive enteral feeds and the patient is currently on vital high protein at the rate of 45 mL an hour. IV fluids with normal saline at the rate of 20 mL an hour. The patient is afebrile. No other significant issues overnight for now. 5 2020, ration remains on a mechanical ventilator. There is a case of COVID-19 related pneumonia/ARDS. This morning, the patient has been on assist-control at the rate of 28 with a tidal volume of 375 and FiO2 of 50% and a PEEP of 15. The peak air pressure is 37 and the plateau airway pressure is 31. The blood gas showed a pH of 7.41 with a pCO2 of 38 and pO2 of 73. Chest x-ray is showing the pulmonary infiltrates. The patient has a hemodialysis catheter in her right IJ. The pulmonary infiltrates are essentially the same probably slightly improved compared to yesterday. Note that the patient also has dialysis-dependent renal failure. She is being dialyzed periodically. Her last session of hemodialysis was yesterday where a total of 3.3 L of fluid was removed without any major dif ficulties or hemodynamic instability. The patient otherwise is awake. She is off sedation. She is watching television. She is following simple commands. Her blood work shows a white cell count of 8.5 with a stable hemoglobin of 9. Platelets is at 169. D-dimer was lower at 4.57. Albumin is at 41 with a creatinine of 4.2. No electrolyte abnormalities or disturbances at this point in time. She is receiving enteral feeding for nutritional support via PEG tube. She is receiving his vital high protein at the rate of 31 mL an hour. She is producing adequate stool which is in the form of the diarrhea and the patient has a fecal management system in place. Output is in the order of 200-300 mL on a daily basis. She has been on Lovenox 40 mg subcu on a daily basis. The patient is also on Decadron 4 mg IV every 24 hours. She is on no antibiotics for now. IV fluids are running at 20 mL an hour of normal saline. She is afebrile. She is hemodynamically stable. No other significant events over the past 24 hours. She is been off propofol for the past 3 hours. 09/27/2020, the patient is awake off propofol. She is recovering from COVID-19 related pneumonia/ARDS. Responsive and the patient is awake and alert and she is following commands. Her chest x-ray from today is remaining unchanged with diffuse bilateral pulmonary infiltrates. Tracheostomy tube is in a good location. Meanwhile, the patient remains on a mechanical ventilator essentially on the same setting which includes a rate of 28 with a tidal volume of 375 and FiO2 of 40% and PEEP has been drop down to 10 and the blood gas shows a pH of 7.41 with a pCO2 of 35 and pO2 of 74. She is resting comfortably. Respiratory rate currently is at 34 and the patient is obviously less tachypneic compared to yesterday. She is undergoing periodic dialysis. Her last dialysis was on 09/25/2020 and the patient is undergoing dialysis today. The patient remains hemodynamically stable. She is moving all 4 extremities. She has generalized global weakness which is quite expected because of prolonged respiratory failure and prolonged ICU stay. She is receiving enteral feeding for nutritional support and she is on vital high protein at the rate of 45 mL an hour. Urine output is in the order of 5 mL an hour. Her electrolytes show a sodium of 135, potassium of 3.6, BUN is up 53 with a creatinine of 5.8. The patient has a white cell count 7.1 and hemoglobin of 8.1. The patient otherwise is hemodynamically stable. The patient is off sedation. The patient is able to move her extremities and there is no focal neurological deficit at this point in time. She is doing slow an ongoing progress for now. She is still having some loose liquidy diarrhea. Stool for C. diff has been negative. Objective - Vital Signs Vital signs: Vital Signs Temp 98.1 F 09/27/20 08:00 Pulse 60 09/27/20 10:00 Resp 24 09/27/20 10:00 BP 147/75 09/27/20 10:00 Pulse Ox 95 09/27/20 10:00 Intake & Output 09/26/20 09/27/20 09/27/20 18:59 06:59 18:59 Intake Total 307 679 289 Output Total 10 10 1225 Balance 297 669 -936 Weight 120.4 kg Intake: IV 276 276 92 0.9 Normal Saline @ KVO 240 240 80 Pressure Bag 36 36 12 Tube Feeding 31 403 107 Other 90 Output: Urine 10 10 25 Stool 1200 Other: Voiding Method Indwelling Catheter Indwelling Catheter Indwelling Catheter ABP, PAP, CO, CI - Last Documented Arterial Blood Pressure 165/72 - Exam GENERAL EXAM: Sedated, 35-year-old female patient, on assist control mode of ventilation with FiO2 40 percent and PEEP of 10, with a pulse ox of 89% comfortable in no apparent distress. HEAD: Normocephalic/atraumatic. EYES: Normal reaction of pupils, equal size. Conjunctiva pink, sclera white. NOSE: Clear with pink turbinates. THROAT: No erythema or exudates. NECK: Right internal jugular hemodialysis catheter placed. Tracheostomy tube secured in place. The patient has Bivona #8. No masses, no JVD, no thyroid enlargement, no adenopathy. CHEST: No chest wall deformity. Symmetrical expansion. LUNGS: Equal air entry with bilateral crackles CVS: Regular rate and rhythm, normal S1 and S2, no gallops, no murmurs, no rubs ABDOMEN: PEG tube exit site clean and dry. No hepatosplenomegaly, normal bowel sounds, no guarding or rigidity. EXTREMITIES: No clubbing, no edema, no cyanosis, 2+ pulses and upper and lower extremities. MUSCULOSKELETAL: Muscle strength and tone normal. SPINE: No scoliosis or deformity SKIN: No rashes CENTRAL NERVOUS SYSTEM: off sugar and the patient is following simple commands and moving all 4 extremities. There is obvious motor weakness with motor function of class 3-4 out of 5 in all 4 extremities. Adequate cough. Adequate gag. Pupils are equal and reactive to light. No facial asymmetry. - Labs CBC & Chem 7: 09/27/20 05:14 09/27/20 05:14 Labs: Abnormal Lab Results - Last 24 Hours (Table) 09/26/20 09/26/20 09/27/20 Range/Units 11:31 18:56 00:20 RBC (3.80-5.40) m/uL Hgb (11.4-16.0) gm/dL Hct (34.0-46.0) % RDW (11.5-15.5) % Lymphocytes # (1.0-4.8) k/uL ABG pO2 (83-108) mmHg Sodium (137-145) mmol/L Carbon Dioxide (22-30) mmol/L BUN (7-17) mg/dL Creatinine (0.52-1.04) mg/dL POC Glucose (mg/dL) 155 H 148 H 117 H (75-99) mg/dL Total Protein (6.3-8.2) g/dL Albumin (3.5-5.0) g/dL 09/27/20 09/27/20 09/27/20 Range/Units 05:14 05:14 05:30 RBC 2.81 L (3.80-5.40) m/uL Hgb 8.1 L (11.4-16.0) gm/dL Hct 23.5 L (34.0-46.0) % RDW 15.7 H (11.5-15.5) % Lymphocytes # 0.7 L (1.0-4.8) k/uL ABG pO2 74 L (83-108) mmHg Sodium 135 L (137-145) mmol/L Carbon Dioxide 21 L (22-30) mmol/L BUN 53 H (7-17) mg/dL Creatinine 5.88 H (0.52-1.04) mg/dL POC Glucose (mg/dL) (75-99) mg/dL Total Protein 5.0 L (6.3-8.2) g/dL Albumin 2.3 L (3.5-5.0) g/dL Assessment and Plan Plan: 1 Acute hypoxic respiratory failure secondary to COVID-19 pneumonia/ARDS, transferred to the intensive care unit on 09/11/2020 and intubated and placed on mechanical ventilator on 09/11/2020. Patient received 1 dose of Remdesivir on 09/11/2020, however based on her quick progression of her hypoxic respiratory failure she received Tocilizumab 800 mg on 09/11/2020. Tracheostomy and PEG t ube placed on 09/18/2020. The patient is doing is slow but ongoing progress and there is progressive improvement in oxygenation. The PEEP has been weaned down to 10 and FiO2 is down to 40% and the patient is still quite synchronous with the mechanical ventilator off sedation. Chest x-ray findings are still stable and the patient remains on Decadron at a dose of 4 mg IV every 24 hours. 2 Acute kidney injury related to ATN, nephrology has been consulted, ultrasound of the kidneys showed no evidence of hydronephrosis. Patient was initiated on hemodialysis on 09/14/2020. Permacath placed 09/20/2020. Her last hemodialysis session was on 09/25/2020 ultrafiltration of 3.3 L. dialysis at this point in time and she is receiving periodic dialysis. Urine output remains low , 5cc/hr 3 Acute diabetic ketoacidosis, resolved sugar is still poorly controlled, the patient is currently on long-acting insulin in the patient's Levemir 20 units twice a day along with NovoLog 5 units 4 times a day. Blood sugars are still somewhat elevated. 4 Acute metabolic acidosis related to acute DKA, and acute kidney injury. Recovered with bicarbonate infusion 5 Increased d-dimer, related to COVID-19 pneumonia, currently on Lovenox 30 mg daily 6 Possible sepsis with increased pro-calcitonin suggesting presence of bacterial infection, cultures have been sent and all negative 7 Diabetes mellitus type 2 8 Morbid obesity with BMI 45.3 kg/m 9 Nonsmoker Plan Dropped the PEEP down to 8 and keep the tidal volume of 375. FiO2 of 40%. Off sedation, mentally awake and alert Drop Lovenox dose to 30 mg subcu daily Dialysis amd anticipate 3 L of ultrafiltration today Enteral feeding for nutrition support in the form of vital high protein at the rate of 45 mL an hour Decadron 4 mg IV every 24 hours Continue Levemir insulin 20 units twice a day and keep the NovoLog 5 units every 6 hours along with a sliding scale coverage. We'll increase the maintenance Levemir dose if needed depending on her blood sugar control. Stool for C Diff Condition is critical we'll continue to follow make further recommendations based on her progress. This is a critically care evaluation that was on a more than 30 minutes. Time with Patient: Greater than 30
[2020-09-27 12:14] LABS: Glucose,Whole Blood 123 mg/dL (75-99)
--- NOTE | 2020-09-27 12:37 | P.PN ---
Subjective Progress Note Date: 09/27/20 HISTORY OF PRESENT ILLNESS 35-year-old female patient of Dr. Arroyo with past medical history of type 2 diabetes comes in with acute shortness of breath associated with high light s ugars. Patient on admission was found to have a fever of 101.5 pulse rate 125 respiratory rate 20. Blood pressure 132/106. On chest x-ray obtained in the ER suggestive of bilateral infiltrates concerning for call with pneumonia. COVID PCR was positive. On admissions patient had an ABG with a pH of 7.14 pCO2 of 20, pO2 of 59, bicarb of 7. Patient's blood sugar on admission was 424 on assessment today patient's blood work patient had a sodium 135 potassium 5.4 chloride 123 bicarb less than 5 and creatinine 0.73. D-dimer was elevated on admission patient 9 28 patient given 1 L of IV fluids followed by normal saline running at 200 mL/h. Patient was positive for acetone on admission. She will anion gap closed and was switched to D5NS. Insulin drip was continued during the night and was switched to patient's home medication this morning. One dose of remdesiver was ordered. Apparently around noon, A- team was called on the patient secondary to hypoxia patient's oxygen saturation dropped to the 70s and 80s on 100% nonrebreather. Patient was switched to BiPAP on 18/12 and is doing better o FiO2 of 80%. ABG was obtained and ph was 7. 14 pCO2 of 28 bicarb of 7 pO2 of 17. Patient noted to have uncompensated metabolic acidosis with compensated respiratory alkalosis. Stat dose of 1 amp bicarb was given and followed by sodium bicarbonate drip. Insulin drip restarted. Patient's initiated on dexamethasone 6 mg IV twice a day. Potassium phosphate ordered as phosphorus is low. Patient's repeat blood gases suggest a pH of 7.25, CO2 32 pO2 of 72 bicarb 14. I will not normal saline at 100 mL/h as patient's anion gap has increased. Patient given 1 dose of 2 mg of morphine with improvement in respiratory rate. One dose of Ativan 0.5 mg was given. Xanax 0.25 twice a day along with Ativan 0.5 IV every 6 hours ordered for the patient. Vitals were evaluated patient pulse 129 [id number]. She was moved to the ICU. Precedex drip was initiated. Lopressor was initiated at 25 twice a day. Metoprolol tartrate 5 mg IV every 6 hours. Systolic blood pressure more than 160. Started chest x-ray was obtained and suggest stable bilateral consolidation suggestive of COVID-19 pneumonia. 09/12 patient is seen in the ICU is currently mechanically ventilated and sedated on vent settings of respiratory rate 36, tidal volume 375 FiO2 80% PEEP of 18.. Vital signs reviewed patient had a temp of 100.4 pulse 150 respiratory rate 36 oxygen saturation 95% on 80% on fio2 .'s labs are reviewed which patient had a d-dimer 1.84 that is increased to 14.3. Arterial Blood gas suggest ph 7.35, CO2 40, po2 62, . Her BMP suggest a sodium 135 potassium 3.7 chloride 112 bicarb 21 creatinine 1.57 for calcitonin is 3.5 CRP is increased from 8.78.2 LDH is increased to 2614. Patient remains on Pneumovax, propofol drip. Lovenox increased to 50 subcu twice a day. Patient received 2 L of IV fluids. Continue IV fluids at 100 mL/h. Bicarb drip discontinued patient initiated on Zosyn 3.375 every 8 hours. Continue insulin drip at 4 units per hour. Patient is currently in prone positioning 09/13: Patient evaluated in the ICU remains on Ventilation continues to be sedated, in prone position. Vent settings are respiratory rate 36, tidal vital 375, FiO2 70% PEEP of 18. ABG shows pO2 of 82, PCO2 of 39, pH is 7.19. Latest labs show WBC 11.1, hemoglobin 13.2, d-dimer still pending, but yesterday was up to 14.3. Creatinine up to 3.4, BUN 24 sodium 137, potassium 4.0. Patient's urine output has been low, nephrology on consult. Bicarb drip increased to 100 miles an hour, receiving another liter of normal saline, she did have a ultrasound that showed unremarkable bilateral kidneys. Repeat chest x-ray showed bilateral lung infiltrates that are stable. Anion gap has closed, will start Lantus 10 units at at bedtime Novolog every 6 hours. 09/14: Patient is seen in the ICU, still currently mechanically ventilated and sedated. She continues in the prone position. Her oxygen quickly drops if she is not in prone. Patient's kidney function has worsened. Laboratory values show creatinine of 4.87, BUN 33, LDH 2191, C-reactive protein 2.7. ABG shows pH 7.32, pO2 of 60, pCO2 43. Patient is making almost no urine overnight. Nephrology is following patient continues on cefepime for urinary tract infection, culture is still pending. Vascular has been consulted for placement of temporary hemodialysis catheter for plans for dialysis. 09/15: Patient evaluated in the ICU, continues to be mechanically ventilated and sedated on assist control ventilation rate of 36, tidal volume 375, FiO2 100% and PEEP of 18. ABG today shows pO2 58, pCO2 of 45, and pH 7.35. She continues on tube feedings. Yesterday patient underwent ultrasound-guided right internal jugular non-tunneled hemodialysis catheter placement. Patient underwent hemodialysis treatment last night and plans have another hemodialysis treatment today. She continues to make almost no urine. She continues on cefepime for antibiotic coverage, and continues on Decadron and Lovenox. 09/16: Patient seen on follow-up remains in the ICU mechanically ventilated and sedated. She continues on assist control rate of 36, tidal volume 375, FiO2 100% and PEEP of 20. PEEP had to be increased due to patient had to be in supine position for dialysis, will go back to prone position once dialysis is complete. ABG shows pH 7.32, pCO2 49, PaO2 61. Laboratory values showed WBC 11.2, hemoglobin 11, sodium 134, creatinine 4.44, BUN 38. Urine culture shows no growth, blood cultures show no growth to date. Repeat chest x-ray shows bilateral pleural effusions, correlate for ARDS, pulmonary edema, diffuse pneumonia, findings are stable from last exam. Patient does not require any pressors, blood pressure 133/57, heart rate 78. 5/16: Patient was evaluated in the ICU today for follow-up. She continues to be intubated and on mechanical ventilation. Current vent settings are tidal volume 375, FiO2 100% and PEEP of 20. ABG shows pH 7.37, pCO2 40, pO2 102. She continues with intermittent prone positioning. Patient continues to have almost no urine output, maintained on dialysis. Patient received dialysis yesterday without complication. Laboratory values revealed WBC 10.3, hemoglobin 10.4, sodium 132, potassium 3.1, BUN 33, creatinine 4.29, LDH 1913, C-reactive protein 1.3. Urine and sputum cultures are negative, blood cultures show no growth to date. Consult placed to dietary to start TPN[ ] 09/18: She remains in the intensive care unit intubated and on mechanical ventilation with tidal volume 375, FiO2 60 and PEEP of 20. Patient is being prone to daily at approximately 16 hours per day. Pulmonary medicine has added in Dr. Zhang to do PEG tube and trach today. Patient is not on vasopressors. Repeat blood work reveals WBC 12.6, hemoglobin 9.8, platelet count 212. Sodium 133, potassium 3.2, chloride 102, CO2 21, BUN 35 and creatinine 4.12. Blood sugar 126. Patient underwent hemodialysis yesterday with removal of 2 L and is scheduled again today with goal of 2-3 L and is scheduled again tomorrow. 09/19: She is scheduled for hemodialysis today and is off fentanyl temporarily. Patient is status post trach and PEG tube yesterday. And she remains on mechanical ventilation. Pulse ox 93-95%. She has been afebrile, heart rate 64, respiratory rate 36, blood pressure 115/50. Fentanyl is off to improve blood pressure for hemodialysis which is scheduled for today. Contacted vascular surgery about permanent hemodialysis catheter. Repeat blood work reveals WBC 14.3, hemoglobin 9.6, platelet count 200. D-dimer 6.48. LDH 1686. C-reactive protein 1.1. BUN 34 creatinine 3.81. Sodium 130, potassium 3.5, chloride 101, CO2 18. Blood sugars running between 101 198. Plan is to wean off Pneumovax today. Patient remains on insulin drip. Repeat chest x-ray reveals bilateral multifocal confluent opacities consistent with COVID-19. Some improved aeratio n periphery of the left lung and worsening opacities throughout the right lung. 09/20: She remains in the intensive care unit on mechanical ventilation. She has been afebrile, heart rate 65, respiratory rate 37, blood pressure 121/70, pulse ox 91-99%. Repeat blood work reveals WBC 14.5, hemoglobin 9.1, platelet count 216. D-dimer 6.13. Sodium 133, potassium 3.1, chloride 102, CO2 18, BUN 35 and creatinine 4.27. Blood sugars running between 128 and 143. LDH 1717. C- reactive protein 1.7. Patient remains on insulin drip which will be transitioned to NovoLog scale every 6 hours. Patient is scheduled for permanent hemodialysis catheter placement today with vascular surgery. Repeat chest x-ray reveals stable diffuse bilateral interstitial and airspace disease. Possible small right effusion. His work is following for transfer to halfway care facility. Do not anticipate discharge until next week. 09/21: Patient is undergoing hemodialysis. She remains on mechanical ventilation with tidal volume 375, FiO2 down to 45 and PEEP was decreased to 15. Patient is continued on propofol, fentanyl drips. She is on tube feedings at goal. Patient was taken off insulin drip yesterday and on scale only but blood sugars are running in the 200s, Levemir scheduled at bedtime will be added. Other blood work reveals WBC 13.3, hemoglobin 8.7, platelet count 192. Sodium 137, potassium 3.6, chloride 107, CO2 18, BUN 34 and creatinine 4.21. Repeat chest x-ray is stable. 09/22: She remains in the intensive care on mechanical ventilation with tidal volume 375, FiO2 of 50 and PEEP of 10. Pulse ox is running 96%. She is afebrile, heart rate in the 50s, respiratory rate 36, blood pressure 100/64. Repeat blood work reveals WBC 16.5, hemoglobin 8.9, platelet count 213. Sodium 134, potassium 3.7, chloride 103, CO2 21, BUN 34 and creatinine 3.89. Blood sugars running in the 200s to 324. Levemir increased to 16 units at bedtime and continue NovoLog scale every 6 hours. Patient is on tube feedings at goal. She has a Haley catheter in with a scant amount of dark/brown urine. Fecal management system is in place. Repeat chest x-ray reveals diffuse bilateral airspace infiltrates persist unchanged. Patient is scheduled for hemodialysis tomorrow morning on Friday. 09/23: Patient remains on mechanical ventilation with tidal volume 3.75, FiO2 50 and PEEP of 10. hand inspector sinus rhythm. She has no urine output. Fecal management system is in place. She is undergoing dialysis at this time with plan for removal of 2-1/2 L. She has been afebrile, heart rate in the 50s, respiratory rate 36, blood pressure 108/76 and pulse ox 89%. WBC 13.6, hemoglobin 9.1, platelet count 194. Sodium 136, potassium 3.0 and was replaced, chloride 106, CO2 21, BUN 49 creatinine 5.31. Blood sugars are running between 182 and this morning 194. Patient was still in the 200s and 300s. Levemir last evening was increased to 16 units. Patient remains on propofol and fentanyl drips. Lovenox was increased to 60 mg twice daily. 09/24: PEEP was increased today to 20, tidal volume is at 375 and FiO2 of 50%. Patient has been afebrile. She has been started on levo fed. Repeat chest x- ray reveals bilateral multifocal confluent opacities consistent with Covid 19 or ARDS redemonstrated. Nephrology will plan dialysis for tomorrow for 3 L. Patient remains on propofol fentanyl and Nimbex. WBC 12.5, hemoglobin 9.8, platelet count 161. D-dimer 13.3. Sodium 132, potassium 3.4, chloride 102, CO2 20, BUN 48 and creatinine 4.67. Blood sugars extremely elevated to 96-409. LDH 2217. 09/25: Patient remains in the intensive care unit on mechanical ventilation with tidal volume 375, FiO2 50 and PEEP of 20. Patient is afebrile, heart rate 61, respiratory rate 36, blood pressure 102/56, pulse ox 97%. Repeat blood work reveals WBC 9.3, hemoglobin 8.5 and platelet count 171. Sodium 130, potassium 3.7, chloride 100, CO2 20, BUN 61 creatinine 5.65. Blood sugars have been elev ated up to 455. Levemir increased to 20 units twice daily, NovoLog 5 units every 6 hours and continue NovoLog scale. Patient is scheduled for hemodialysis today. Repeat chest x-ray reveals bilateral multifocal and confluent opacities. Decadron and Lovenox dosing change by pulmonary. Patient is off norepinephrine. 09/26: Patient remains in the intensive care unit on mechanical ventilation with tidal volume 375, FiO2 50 and PEEP of 15. She has been afebrile, heart rate 91, blood pressure 114/68, pulse ox 99%. hand inspector sinus rhythm. 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 Sodium 134, potassium 3.6, chloride 102, CO2 22, BUN 41 creatinine 4.21. Patient has improved blood sugars this morning running 150s and 160s. Diabetic medications were adjusted yesterday. Patient is awake and alert and interacting. Yesterday, patient had PICC line inserted by interventional radiology. Repeat chest x-ray reveals diffuse airspace infiltrates in both lung ann appear to progress slightly in the interval. 09/27: Patient remains in intensive care unit on mechanical ventilation with improvement of settings with tidal volume 375, FiO2 decreased to 40 and PEEP decreased to 10. Patient is on hemodialysis every other day and plan to remove 3 L today. Patient is more awake and alert. She is slow to respond but is able to follow simple commands. Blood sugars are running between 84 and 123. Repeat blood work reveals WBC 7.1, hemoglobin 8.1, platelets 152. Sodium 135, potassium 3.6, chloride 103, CO2 21, BUN 53 and creatinine 5.88. Repeat chest x-ray revealed cardiomegaly and pulmonary edema. Patient is on tube feedings:. Patient is not require vasopressors and is off sedation. Fecal management system remains in place for brown liquid stool. C. difficile was negative. REVIEW OF SYSTEMS Unable to obtain due to mechanical ventilation. PHYSICAL EXAMINATION Gen: This is is a 35-year-old black female, patient is intubated and on mechanical ventilation, appears to be comfortable. HEENT: Head is atraumatic, normocephalic. Pupils equal, round. Sclerae is anicteric. Tracheostomy tube in place. NECK: Supple. No JVD. No lymphadenopathy. No thyromegaly. LUNGS: Scattered bilateral rhonchi. No intercostal retractions. HEART: Regular rate and rhythm. No murmur. ABDOMEN: Soft. Bowel sounds are present. No masses. No tenderness. PEG tube in place, area clean and dry. Fecal management system in place with brown stool. EXTREMITIES: No pedal edema. No calf tenderness. Dorsalis pedis +2 bilaterally. NEUROLOGICAL: Patient is awake, alert and able to follow simple commands. ASSESSMENT AND PLAN 1. Acute hypoxic respiratory failure secondary to Covid 19 pneumonia and possible bacterial pneumonia. Patient was intubated on September 11. She is status post 1 dose of Remdesivir and 1 dose of Tocilizumab. Continue Ventolin inhaler 4 times daily, Symbicort twice daily, Decadron 4 mg IV daily, Lovenox 30 mg subcu daily, supplements. Status post PEG tube and trach. 2. Acute diabetic ketoacidosis secondary to Covid 19 pneumonia, uncontrolled with hyperglycemia. Levemir 20 units twice daily, scheduled NovoLog 5 units every 6 hours and NovoLog scale. 3. Metabolic encephalopathy secondary to Covid 19 and DKA. 4. Sepsis and septic shock secondary to Covid 19 pneumonia. Continue as in #1. 5. Acute metabolic acidosis secondary to acute DKA, Covid 19 and acute kidney injury. 6. Diabetes mellitus type 2 uncontrolled with A1c 13.6. Continue as above. 7. Hypophosphatemia status post replacement. 8. Hyperkalemia secondary to DKA, resolved. 9. Sinus tachycardia secondary to sepsis, volume deficiency.Continue Lopressor 25 mg twice daily. 10. Acute kidney injury secondary to ATN secondary to Covid 19 and DKA. Patient continued on hemodialysis. Permanent dialysis catheter placed. 11. Hypertension. 12. Morbid obesity with BMI of 53. 13. DVT prophylaxis. Lovenox. 14. GI prophylaxis. Protonix 40 mg IV push daily. CODE STATUS: Full code Prognosis guarded. Impression and plan of care have been directed as dictated by the signing physician. Kimberly Boswell nurse practitioner acting as scribe for signing physician. Objective - Vital Signs Vital signs: Vital Signs Temp 98.6 F 09/27/20 00:00 Pulse 76 09/27/20 07:00 Resp 24 09/27/20 07:00 BP 127/77 09/27/20 07:00 Pulse Ox 94 L 09/27/20 07:00 Intake & Output 09/26/20 09/27/20 09/27/20 18:59 06:59 18:59 Intake Total 307 679 23 Output Total 10 10 5 Balance 297 669 18 Weight 120.4 kg Intake: IV 276 276 23 0.9 Normal Saline @ KVO 240 240 20 Pressure Bag 36 36 3 Tube Feeding 31 403 Output: Urine 10 10 5 Other: Voiding Method Indwelling Catheter Indwelling Catheter ABP, PAP, CO, CI - Last Documented Arterial Blood Pressure 187/82 - Labs CBC & Chem 7: 09/27/20 05:14 09/27/20 05:14 Labs: Abnormal Lab Results - Last 24 Hours (Table) 09/26/20 09/26/20 09/27/20 Range/Units 11:31 18:56 00:20 RBC (3.80-5.40) m/uL Hgb (11.4-16.0) gm/dL Hct (34.0-46.0) % RDW (11.5-15.5) % Lymphocytes # (1.0-4.8) k/uL ABG pO2 (83-108) mmHg Sodium (137-145) mmol/L Carbon Dioxide (22-30) mmol/L BUN (7-17) mg/dL Creatinine (0.52-1.04) mg/dL POC Glucose (mg/dL) 155 H 148 H 117 H (75-99) mg/dL Total Protein (6.3-8.2) g/dL Albumin (3.5-5.0) g/dL 09/27/20 09/27/20 09/27/20 Range/Units 05:14 05:14 05:30 RBC 2.81 L (3.80-5.40) m/uL Hgb 8.1 L (11.4-16.0) gm/dL Hct 23.5 L (34.0-46.0) % RDW 15.7 H (11.5-15.5) % Lymphocytes # 0.7 L (1.0-4.8) k/uL ABG pO2 74 L (83-108) mmHg Sodium 135 L (137-145) mmol/L Carbon Dioxide 21 L (22-30) mmol/L BUN 53 H (7-17) mg/dL Creatinine 5.88 H (0.52-1.04) mg/dL POC Glucose (mg/dL) (75-99) mg/dL Total Protein 5.0 L (6.3-8.2) g/dL Albumin 2.3 L (3.5-5.0) g/dL
[2020-09-27] MEDS: DARBEPOETIN ALFA 40 MCG/0.4 ML SYRINGE SQ SCH (13:45)
--- NOTE | 2020-09-27 17:23 | P.PN ---
Progress Note - Text Progress Note Date: 09/27/20 Patient is more awake. Her tracheostomy site is clean. Patient desires clean. She'll continue to receive supportive care
[2020-09-27 17:53] LABS: Glucose,Whole Blood 174 mg/dL (75-99)
[2020-09-27 23:30] LABS: Glucose,Whole Blood 187 mg/dL (75-99)
[2020-09-28] MEDS ORDERED: ALPRAZolam 0.25 MG TAB PO PRN (00:15)
[2020-09-28] MEDS: INSULIN ASPART (NovoLOG) 100 UNIT/ML VIAL SQ SCH ×8 (00:32→18:28)
[2020-09-28] MEDS: METOPROLOL TARTRATE 5 MG/5 ML VIAL IVP PRN (01:10)
[2020-09-28] MEDS: HYDROmorphone 1 MG/ML 1 ML SYRINGE IVP PRN ×2 (01:11→06:03)
[2020-09-28] MEDS ORDERED: DEXMEDETOMIDINE/0.9% NACL(PMX) 400 MCG in EMPTY BAG 1 BAG IV SCH (03:00)
[2020-09-28 03:32] LABS: % Iron Saturation 13.85 (12.00-45.00); Ferritin 548.7 ng/mL (10.0-291.0)
[2020-09-28 05:02] LABS: ABG Base Excess -2.1 mmol/L; ABG HCO3 24 mmol/L (21-25); ABG Oxygen Saturation 59.6 % (94-97); ABG PCO2 50 mmHg (35-45); ABG PH 7.29 (7.35-7.45); ABG TCO2 26 mmol/L (19-24)
[2020-09-28 05:04] LABS: ABG PO2 37 mmHg (83-108)
[2020-09-28 05:17] LABS: Basophils % (A) 0 %; Eosinophils # (A) 0.2 k/uL (0-0.7); Eosinophils % (A) 1 %; HCT 30.3 % (34.0-46.0); Hypochromasia Slight; Lymphocytes # (A) 1.1 k/uL (1.0-4.8); Lymphocytes % (A) 6 %; MCH 27.4 pg (25.0-35.0); MCV 85.8 fL (80.0-100.0); Mean Platelet Volume 8.7; Monocytes % (A) 6 %; Neutrophils # (A) 14.1 k/uL (1.3-7.7); Neutrophils % (A) 83 %; Platelet Count 216 k/uL (150-450); Poikilocytosis Slight; RBC 3.53 m/uL (3.80-5.40); RDW 15.5 % (11.5-15.5); WBC 16.9 k/uL (3.8-10.6)
[2020-09-28] MEDS ORDERED: propofoL 100 ML IV ONE (05:17)
[2020-09-28 05:22] LABS: HGB 9.7 gm/dL (11.4-16.0)
[2020-09-28 05:33] LABS: Albumin 2.8 g/dL (3.5-5.0); Potassium 3.8 mmol/L (3.5-5.1); Total Bilirubin 0.3 mg/dL (0.2-1.3); Total Protein 5.7 g/dL (6.3-8.2)
[2020-09-28 05:57] LABS: Glucose,Whole Blood 247 mg/dL (75-99)
[2020-09-28] MEDS: SEVELAMER 800 MG TAB PO SCH ×3 (06:03→17:29)
[2020-09-28] MEDS: INSULIN DETEMIR (LEVEMIR) 100 UNIT/ML SYR SQ SCH ×2 (06:04→21:08)
[2020-09-28] MEDS ORDERED: VANCOMYCIN IV PER PHARMACY 1 EACH MISC MISCELLANE PRN (06:18)
--- NOTE | 2020-09-28 06:25 | XR ---
EXAM: XR Chest, 1 View CLINICAL HISTORY: ITS.REASON XR Reason: SOB TECHNIQUE: Frontal view of the chest. COMPARISON: 09/27/2020 FINDINGS: Tracheostomy tube in place. Unchanged position of tunneled right IJ central venous catheter. Diffuse bilateral patchy opacities, increased in the bilateral apices relative to 09/27/2020. Blunting of the bilateral costophrenic angles which may be due to small pleural effusions. No pneumothorax. IMPRESSION: Slight increase in pulmonary edema compared to 09/27/2020.
[2020-09-28] MEDS: HEPARIN SOD,PORK IN 0.45% NACL 25,000 UNIT in 0.45% NACL 1 250ML.BAG IV SCH ×2 (06:26→17:31)
[2020-09-28] MEDS: CEFEPIME 1 GM in SODIUM CHLORIDE 0.9% 50 ML IVPB SCH (07:40)
[2020-09-28] MEDS: ALBUTEROL HFA INHALER INHALATION SCH ×4 (07:53→19:07)
[2020-09-28] MEDS: SYMBICORT 160-4.5 MCG INHALER INHALATION SCH ×2 (07:53→19:07)
[2020-09-28] MEDS ORDERED: VANCOMYCIN 1,750 MG in SODIUM CHLORIDE 0.9% 500 ML 500 ML IVPB ONE (08:00)
--- NOTE | 2020-09-28 08:48 | US ---
EXAMINATION TYPE: US venous doppler duplex LE BI DATE OF EXAM: 09/28/2020 8:30 AM COMPARISON: NONE CLINICAL HISTORY: possible blood clots. Covid ICU who is sedated on has tracheostomy tube and is mor bidly obese SIDE PERFORMED: Bilateral TECHNIQUE: The lower extremity deep venous system is examined utilizing real time linear array sonog mia with graded compression, doppler sonography and color-flow sonography. VESSELS IMAGED: Common Femoral Vein Deep Femoral Vein Greater Saphenous Vein * Femoral Vein Popliteal Vein Small Saphenous Vein * Proximal Calf Veins (* superficial vessels) Nondiagnostic exam Right Leg: Due to extensive edema on obese patient, ultrasound could not penetrate vessels within bi lateral upper legs, minimal imaging of popiteal veins does show flow Left Leg: Due to extensive edema on obese patient, ultrasound could not penetrate vessels within ashley ateral upper legs, minimal imaging of popiteal veins does show flow IMPRESSION: 1. Nondiagnostic study due to extensive edema and obese patient. Underlying deep venous thrombosis is not excluded in the lower extremity.
[2020-09-28] MEDS ORDERED: CEFEPIME 2 GM in SODIUM CHLORIDE 0.9% 100 ML IVPB SCH (09:00)
[2020-09-28] MEDS: PANTOPRAZOLE 40 MG/10 ML VIAL IVP SCH (09:01)
[2020-09-28] MEDS: SODIUM BICARBONATE TAB 650 MG TAB PO SCH ×3 (09:01→21:07)
[2020-09-28] MEDS: DEXAMETHASONE SOD PHOSPHATE 4 MG/ML 1 ML VIAL IV SCH (09:02)
[2020-09-28] MEDS: CHOLECALCIFEROL 25 MCG (1000 IU) TABLET PO SCH (09:02)
[2020-09-28] MEDS: ASCORBIC ACID 500 MG TAB PO SCH ×2 (09:02→21:07)
[2020-09-28] MEDS: ZINC SULFATE 220 MG CAP PO SCH (09:03)
--- NOTE | 2020-09-28 09:58 | P.PN ---
Subjective Patient is seen in follow-up for acute kidney injury. Started on hemodialysis September 14. Oliguric. Status post tracheostomy and PEG tube placement this admission. Receiving tube feeding. Patient became more hypoxic overnight and is currently on higher amounts of PEEP and 100% FiO2. She is also tachycardic. Vital signs: Tachycardic. On 100% FiO2. General: The patient appeared well nourished and normally developed. HEENT: Tracheostomy noted. LUNGS: Breath sounds decreased. HEART: Tachycardic. Abdomen: Soft, no distention. EXTREMITITES: 1+ edema. Objective - Vital Signs Vital signs: Vital Signs Temp 100.2 F H 09/28/20 04:00 Pulse 140 H 09/28/20 08:00 Resp 39 H 09/28/20 08:00 BP 136/75 09/28/20 08:00 Pulse Ox 90 L 09/28/20 08:00 Intake & Output 09/27/20 09/28/20 09/28/20 18:59 06:59 18:59 Intake Total 911 1042.395 132.8 Output Total 4225 20 Balance -3314 1022.395 132.8 Weight 120.4 kg 120 kg Intake: IV 276 276 23 0.9 Normal Saline @ KVO 240 240 20 Pressure Bag 36 36 3 Intake, IV Titration 13.395 58.8 Amount Dexmedetomidine/0.9% NaCl 13.395 (Pmx) 400 mcg In Empty Bag 1 bag @ Per Protocol IV .Q0M [facility] Rx#:[id number] propofoL 1,000 mg In 58.8 Empty Bag 1 bag @ Per Protocol IV .Q0M [facility] Rx#: [id number] Tube Feeding 485 663 51 Other 150 90 Output: Urine 25 20 Stool 1200 Hemodialysis 3000 Other: Voiding Method Indwelling Catheter Indwelling Catheter ABP, PAP, CO, CI - Last Documented Arterial Blood Pressure 137/76 - Labs CBC & Chem 7: 09/28/20 04:25 09/28/20 04:25 Labs: Abnormal Lab Results - Last 24 Hours (Table) 09/27/20 09/27/20 09/27/20 Range/Units 12:00 12:00 12:13 WBC (3.8-10.6) k/uL RBC (3.80-5.40) m/uL Hgb (11.4-16.0) gm/dL Hct (34.0-46.0) % Neutrophils # (1.3-7.7) k/uL D-Dimer 7.04 H (<0.60) mg/L FEU ABG pH (7.35-7.45) ABG pCO2 (35-45) mmHg ABG pO2 (83-108) mmHg ABG Total CO2 (19-24) mmol/L ABG O2 Saturation (94-97) % Sodium (137-145) mmol/L BUN (7-17) mg/dL Creatinine (0.52-1.04) mg/dL Glucose (74-99) mg/dL POC Glucose (mg/dL) 123 H (75-99) mg/dL Iron 27 L (50-170) ug/dL TIBC 195 L (228-460) ug/dL Ferritin 548.7 H (10.0-291.0) ng/mL AST (14-36) U/L Total Protein (6.3-8.2) g/dL Albumin (3.5-5.0) g/dL 09/27/20 09/27/20 09/28/20 Range/Units 17:52 23:28 04:25 WBC 16.9 H (3.8-10.6) k/uL RBC 3.53 L (3.80-5.40) m/uL Hgb 9.7 L D (11.4-16.0) gm/dL Hct 30.3 L (34.0-46.0) % Neutrophils # 14.1 H (1.3-7.7) k/uL D-Dimer (<0.60) mg/L FEU ABG pH (7.35-7.45) ABG pCO2 (35-45) mmHg ABG pO2 (83-108) mmHg ABG Total CO2 (19-24) mmol/L ABG O2 Saturation (94-97) % Sodium (137-145) mmol/L BUN (7-17) mg/dL Creatinine (0.52-1.04) mg/dL Glucose (74-99) mg/dL POC Glucose (mg/dL) 174 H 187 H (75-99) mg/dL Iron (50-170) ug/dL TIBC (228-460) ug/dL Ferritin (10.0-291.0) ng/mL AST (14-36) U/L Total Protein (6.3-8.2) g/dL Albumin (3.5-5.0) g/dL 09/28/20 09/28/20 09/28/20 Range/Units 04:25 04:56 05:55 WBC (3.8-10.6) k/uL RBC (3.80-5.40) m/uL Hgb (11.4-16.0) gm/dL Hct (34.0-46.0) % Neutrophils # (1.3-7.7) k/uL D-Dimer (<0.60) mg/L FEU ABG pH 7.29 L (7.35-7.45) ABG pCO2 50 H (35-45) mmHg ABG pO2 37 L* (83-108) mmHg ABG Total CO2 26 H (19-24) mmol/L ABG O2 Saturation 59.6 L (94-97) % Sodium 133 L (137-145) mmol/L BUN 43 H (7-17) mg/dL Creatinine 5.36 H (0.52-1.04) mg/dL Glucose 231 H (74-99) mg/dL POC Glucose (mg/dL) 247 H (75-99) mg/dL Iron (50-170) ug/dL TIBC (228-460) ug/dL Ferritin (10.0-291.0) ng/mL AST 40 H (14-36) U/L Total Protein 5.7 L (6.3-8.2) g/dL Albumin 2.8 L (3.5-5.0) g/dL 09/28/20 Range/Units 06:20 WBC (3.8-10.6) k/uL RBC (3.80-5.40) m/uL Hgb (11.4-16.0) gm/dL Hct (34.0-46.0) % Neutrophils # (1.3-7.7) k/uL D-Dimer 8.88 H (<0.60) mg/L FEU ABG pH (7.35-7.45) ABG pCO2 (35-45) mmHg ABG pO2 (83-108) mmHg ABG Total CO2 (19-24) mmol/L ABG O2 Saturation (94-97) % Sodium (137-145) mmol/L BUN (7-17) mg/dL Creatinine (0.52-1.04) mg/dL Glucose (74-99) mg/dL POC Glucose (mg/dL) (75-99) mg/dL Iron (50-170) ug/dL TIBC (228-460) ug/dL Ferritin (10.0-291.0) ng/mL AST (14-36) U/L Total Protein (6.3-8.2) g/dL Albumin (3.5-5.0) g/dL Assessment and Plan Plan: Assessment: 1. Acute kidney injury secondary to ATN secondary to COVID-19 and DKA. Baselin e creatinine is near 1. Started on hemodialysis on September 14. Has p-cath. Oliguric. No hydronephrosis noted on kidney ultrasound. 2. DKA s/p insulin drip and IV fluids. 3. Acute hypoxic respiratory failure secondary to COVID-19 pneumonia. ?PE. Status post tracheostomy this admission. 4. Metabolic acidosis secondary to acute kidney injury and DKA s/p bicarb drip. Now on oral bicarbonate. Improved. 5. Hyponatremia secondary to acute kidney injury and component of hypertonicity due to hyperglycemia. Fairly stable. 6. Hyperphosphatemia secondary to acute kidney injury. Maintained on Renvela. 7. Anemia of chronic illness and kidney disease. Maintained on Aranesp. Iron deficiency noted. 8. Fluid overload. Plan: Currently seen while undergoing hemodialysis. Plan for another treatment tomorrow mostly for ultrafiltration. Maintain tube feeds. Avoid nephrotoxins. Continue to monitor renal function and urine output. Monitor for renal recovery. Wean FiO2. Add IV iron. Follow-up echocardiogram. On IV heparin for possible PE.
--- NOTE | 2020-09-28 10:33 | P.PN ---
Subjective Progress Note Date: 09/28/20 On 09/25/2020, the patient is being seen in follow-up in the intensive care unit. For now, the patient remains in respiratory failure, remains intubated on a mechanical ventilator. She is post, respiratory failure secondary to COVID-19 related to pneumonia with secondary ARDS. The patient remained on assist control mode at the rate of 36 and a tidal volume of 375 and FiO2 of 50% with a PEEP of 20. The peak air pressure was 43. The static pressure was 37. The blood gases from today showed a pH of 7.33 with a pCO2 of 38 and pO2 of 95. Chest x-ray still consistent with diffuse bilateral pulmonary infiltrates with bilateral multifocal and confluent opacities consistent with COVID-19 related pneumonia/ARDS. The patient has been on steroids or along the patient is still on Decadron 6 mg IV every 24 hours. The patient is also on Lovenox 60 mg subcu every 12 hours. She is requiring norepinephrine infusion low-dose of 0.01 mcg/kg per minute. She remains in renal failure. Creatinine today is at 5.65 with a BUN of 61. The net fluid balance is been +38 mL over the past 24 hours. The patient's last hemodialysis session was on 09/23/2020 with a total of 2.5 L of fluids was removed and the patient is scheduled to have another session of hemodialysis today. The patient this morning is sedated with propofol running at 50 mcg/kg per minute. Nevertheless, despite that, she is arousable and she opens her eyes spontaneously. Doesn't follow commands consistently. Her white cell count is at 9.3 with a hemoglobin of 8.5 blood sugars remain elevated and the patient is on Levemir insulin 20 units twice a day and the patient is also started on lower log 5 units every 6 hours [id number] plus a signs good coverage. The patient continues to receive enteral feeds and the patient is currently on vital high protein at the rate of 45 mL an hour. IV fluids with normal saline at the rate of 20 mL an hour. The patient is afebrile. No other significant issues overnight for now. 5 2020, ration remains on a mechanical ventilator. There is a case of COVID-19 related pneumonia/ARDS. This morning, the patient has been on assist-control at the rate of 28 with a tidal volume of 375 and FiO2 of 50% and a PEEP of 15. The peak air pressure is 37 and the plateau airway pressure is 31. The blood gas showed a pH of 7.41 with a pCO2 of 38 and pO2 of 73. Chest x-ray is showing the pulmonary infiltrates. The patient has a hemodialysis catheter in her right IJ. The pulmonary infiltrates are essentially the same probably slightly improved compared to yesterday. Note that the patient also has dialysis-dependent renal failure. She is being dialyzed periodically. Her last session of hemodialysis was yesterday where a total of 3.3 of fluid was removed without any major diffi culties or hemodynamic instability. The patient otherwise is awake. She is off sedation. She is watching television. She is following simple commands. Her blood work shows a white cell count of 8.5 with a stable hemoglobin of 9. Platelets is at 169. D-dimer was lower at 4.57. Albumin is at 41 with a creatinine of 4.2. No electrolyte abnormalities or disturbances at this point in time. She is receiving enteral feeding for nutritional support via PEG tube. She is receiving his vital high protein at the rate of 31 mL an hour. She is producing adequate stool which is in the form of the diarrhea and the patient has a fecal management system in place. Output is in the order of 200-300 mL on a daily basis. She has been on Lovenox 40 mg subcu on a daily basis. The patient is also on Decadron 4 mg IV every 24 hours. She is on no antibiotics for now. IV fluids are running at 20 mL an hour of normal saline. She is afebrile. She is hemodynamically stable. No other significant events over the past 24 hours. She is been off propofol for the past 3 hours. 09/27/2020, the patient is awake off propofol. She is recovering from COVID-19 related pneumonia/ARDS. Responsive and the patient is awake and alert and she is following commands. Her chest x-ray from today is remaining unchanged with diffuse bilateral pulmonary infiltrates. Tracheostomy tube is in a good location. Meanwhile, the patient remains on a mechanical ventilator essentially on the same setting which includes a rate of 28 with a tidal volume of 375 and FiO2 of 40% and PEEP has been drop down to 10 and the blood gas shows a pH of 7.41 with a pCO2 of 35 and pO2 of 74. She is resting comfortably. Respiratory rate currently is at 34 and the patient is obviously less tachypneic compared to yesterday. She is undergoing periodic dialysis. Her last dialysis was on 09/25/2020 and the patient is undergoing dialysis today. The patient remains hemodynamically stable. She is moving all 4 extremities. She has generalized global weakness which is quite expected because of prolonged respiratory failure and prolonged ICU stay. She is receiving enteral feeding for nutritional support and she is on vital high protein at the rate of 45 mL an hour. Urine output is in the order of 5 mL an hour. Her electrolytes show a sodium of 135, potassium of 3.6, BUN is up 53 with a creatinine of 5.8. The patient has a white cell count 7.1 and hemoglobin of 8.1. The patient otherwise is hemodynamically stable. The patient is off sedation. The patient is able to move her extremities and there is no focal neurological deficit at this point in time. She is doing slow an ongoing progress for now. She is still having some loose liquidy diarrhea. Stool for C. diff has been negative. 09/28/2020, the patient has decompensated. As of midnight yesterday, the patient stated that she was not feeling well. She clearly communicated this with the nurses. Subsequently, she became more tachypneic and short of breath while on a mechanical ventilator and she began progressively hypoxic more confused and more restless and agitated. At that point, I initially started on Precedex. I increased the PEEP knowing that the patient was having ongoing hypoxemia while on the mechanical ventilator. Nevertheless, the patient was not responding and she continued to be having worsening and hypoxemia. At that p oint, she was started back comfortable for which is currently running at 75 mcg/kg per minute. She is fully sedated for now. She is back on a mechanical ventilator in the PEEP is currently up to 18 with a tidal volume of 375 and the rate of 28 and FiO2 of 100%. Note that the blood gases earlier prior to this change showed a pH of 7.29 with a pCO2 of 50 and pO2 of 37 and this was done while on a FiO2 of 90% with a PEEP of 6. The chest x-ray showing diffuse bilateral airspace disease system with ARDS. At that point, a workup was initiated regarding her hypoxemia. Doppler of the lower extremity was done and the results were negative. Noted the patient was already on Lovenox. Nevertheless, due to my concern of pulmonary embolism, I put the patient IV heparin. The d-dimer was repeated and the level came back at 8.8 with a slightly higher compared to yesterday. I also give the patient, addition of antibiotics including cefepime and vancomycin. Cultures are still pending. White cell count is up to 16.9. Pneumonia is considered although I'm not absolutely certain about this diagnosis. Meanwhile, the patient was asked to undergo another session of hemodialysis. Currently she is running a dialysis right now with an ultrafiltration of around goal. Echocardiogram was also ord ered. Her current pulse ox 97%. The patient exercises monitoring elevation of PEEP and sedation. The patient will have a follow-up blood gas done post dialysis the necessity ventilator changes will be done. Haley cath is in place. Urine output is minimal in the order of 20 disease over the past 12 hours. Note that her weight has been stable and there is no signs of any major volume change. She remains overloaded in terms of fluid in general. She has a PEG tube. Enterofeeding is still being continued with vital high protein at the rate of 51 mL an hour. Rest of the electrolytes are normal. Serum bicarb is 25. BUN is at 43 with a creatinine of 5.36. LFTs are normal. Objective - Vital Signs Vital signs: Vital Signs Temp 100.2 F H 09/28/20 04:00 Pulse 140 H 09/28/20 08:00 Resp 39 H 09/28/20 08:00 BP 136/75 09/28/20 08:00 Pulse Ox 90 L 09/28/20 08:00 Intake & Output 09/27/20 09/28/20 09/28/20 18:59 06:59 18:59 Intake Total 911 1042.395 132.8 Output Total 4225 20 Balance -3314 1022.395 132.8 Weight 120.4 kg 120 kg Intake: IV 276 276 23 0.9 Normal Saline @ KVO 240 240 20 Pressure Bag 36 36 3 Intake, IV Titration 13.395 58.8 Amount Dexmedetomidine/0.9% NaCl 13.395 (Pmx) 400 mcg In Empty Bag 1 bag @ Per Protocol IV .Q0M [facility] Rx#:[id number] propofoL 1,000 mg In 58.8 Empty Bag 1 bag @ Per Protocol IV .Q0M [facility] Rx#: [id number] Tube Feeding 485 663 51 Other 150 90 Output: Urine 25 20 Stool 1200 Hemodialysis 3000 Other: Voiding Method Indwelling Catheter Indwelling Catheter ABP, PAP, CO, CI - Last Documented Arterial Blood Pressure 137/76 - Exam GENERAL EXAM: Sedated, 35-year-old female patient, on assist control mode of ventilation , sedated, comfortable on propofol. HEAD: Normocephalic/atraumatic. EYES: Normal reaction of pupils, equal size. Conjunctiva pink, sclera white. NOSE: Clear with pink turbinates. THROAT: No erythema or exudates. NECK: Right internal jugular hemodialysis catheter placed. Tracheostomy tube secured in place. The patient has Bivona #8. No masses, no JVD, no thyroid enlargement, no adenopathy. CHEST: No chest wall deformity. Symmetrical expansion. LUNGS: Equal air entry with bilateral crackles CVS: Regular rate and rhythm, normal S1 and S2, no gallops, no murmurs, no rubs ABDOMEN: PEG tube exit site clean and dry. No hepatosplenomegaly, normal bowel sounds, no guarding or rigidity. EXTREMITIES: No clubbing, no edema, no cyanosis, 2+ pulses and upper and lower extremities. MUSCULOSKELETAL: Muscle strength and tone normal. SPINE: No scoliosis or deformity SKIN: No rashes CENTRAL NERVOUS SYSTEM: Patient is sedated with propofol. She grimaces to painful stimulation. She was wide awake prior to her being sedated. Sedation had to be restarted because of ongoing respiratory failure. - Labs CBC & Chem 7: 09/28/20 04:25 09/28/20 04:25 Labs: Abnormal Lab Results - Last 24 Hours (Table) 09/27/20 09/27/20 09/27/20 Range/Units 12:00 12:00 12:13 WBC (3.8-10.6) k/uL RBC (3.80-5.40) m/uL Hgb (11.4-16.0) gm/dL Hct (34.0-46.0) % Neutrophils # (1.3-7.7) k/uL D-Dimer 7.04 H (<0.60) mg/L FEU ABG pH (7.35-7.45) ABG pCO2 (35-45) mmHg ABG pO2 (83-108) mmHg ABG Total CO2 (19-24) mmol/L ABG O2 Saturation (94-97) % Sodium (137-145) mmol/L BUN (7-17) mg/dL Creatinine (0.52-1.04) mg/dL Glucose (74-99) mg/dL POC Glucose (mg/dL) 123 H (75-99) mg/dL Iron 27 L (50-170) ug/dL TIBC 195 L (228-460) ug/dL Ferritin 548.7 H (10.0-291.0) ng/mL AST (14-36) U/L Total Protein (6.3-8.2) g/dL Albumin (3.5-5.0) g/dL 09/27/20 09/27/20 09/28/20 Range/Units 17:52 23:28 04:25 WBC 16.9 H (3.8-10.6) k/uL RBC 3.53 L (3.80-5.40) m/uL Hgb 9.7 L D (11.4-16.0) gm/dL Hct 30.3 L (34.0-46.0) % Neutrophils # 14.1 H (1.3-7.7) k/uL D-Dimer (<0.60) mg/L FEU ABG pH (7.35-7.45) ABG pCO2 (35-45) mmHg ABG pO2 (83-108) mmHg ABG Total CO2 (19-24) mmol/L ABG O2 Saturation (94-97) % Sodium (137-145) mmol/L BUN (7-17) mg/dL Creatinine (0.52-1.04) mg/dL Glucose (74-99) mg/dL POC Glucose (mg/dL) 174 H 187 H (75-99) mg/dL Iron (50-170) ug/dL TIBC (228-460) ug/dL Ferritin (10.0-291.0) ng/mL AST (14-36) U/L Total Protein (6.3-8.2) g/dL Albumin (3.5-5.0) g/dL 09/28/20 09/28/20 09/28/20 Range/Units 04:25 04:56 05:55 WBC (3.8-10.6) k/uL RBC (3.80-5.40) m/uL Hgb (11.4-16.0) gm/dL Hct (34.0-46.0) % Neutrophils # (1.3-7.7) k/uL D-Dimer (<0.60) mg/L FEU ABG pH 7.29 L (7.35-7.45) ABG pCO2 50 H (35-45) mmHg ABG pO2 37 L* (83-108) mmHg ABG Total CO2 26 H (19-24) mmol/L ABG O2 Saturation 59.6 L (94-97) % Sodium 133 L (137-145) mmol/L BUN 43 H (7-17) mg/dL Creatinine 5.36 H (0.52-1.04) mg/dL Glucose 231 H (74-99) mg/dL POC Glucose (mg/dL) 247 H (75-99) mg/dL Iron (50-170) ug/dL TIBC (228-460) ug/dL Ferritin (10.0-291.0) ng/mL AST 40 H (14-36) U/L Total Protein 5.7 L (6.3-8.2) g/dL Albumin 2.8 L (3.5-5.0) g/dL 09/28/20 Range/Units 06:20 WBC (3.8-10.6) k/uL RBC (3.80-5.40) m/uL Hgb (11.4-16.0) gm/dL Hct (34.0-46.0) % Neutrophils # (1.3-7.7) k/uL D-Dimer 8.88 H (<0.60) mg/L FEU ABG pH (7.35-7.45) ABG pCO2 (35-45) mmHg ABG pO2 (83-108) mmHg ABG Total CO2 (19-24) mmol/L ABG O2 Saturation (94-97) % Sodium (137-145) mmol/L BUN (7-17) mg/dL Creatinine (0.52-1.04) mg/dL Glucose (74-99) mg/dL POC Glucose (mg/dL) (75-99) mg/dL Iron (50-170) ug/dL TIBC (228-460) ug/dL Ferritin (10.0-291.0) ng/mL AST (14-36) U/L Total Protein (6.3-8.2) g/dL Albumin (3.5-5.0) g/dL Assessment and Plan Plan: 1 Acute hypoxic respiratory failure secondary to COVID-19 pneumonia/ARDS, transferred to the intensive care unit on 09/11/2020 and intubated and placed on mechanical ventilator on 09/11/2020. Patient received 1 dose of Remdesivir on 09/11/2020, however based on her quick progression of her hypoxic respiratory failure she received Tocilizumab 800 mg on 09/11/2020. Tracheostomy and PEG t ube placed on 09/18/2020. After showing some ongoing improvement and improvement in oxygenation, the patient's PEEP was weaned down as low as 6. Nevertheless, overnight, the patient became acutely hypoxic and her condition decompensated. Currently she is back on sedation and she is on high PEEP at the level of 18 with an FiO2 of 100%. We'll monitor the blood gas. We'll monitor chest x-ray. She is covered with IV heparin for the possibility of pulmonary embolism although this is felt to be less likely. She is covered with accommodation cefepime and vancomycin regarding the possibility of pneumonia although this is felt to be less likely. I believe that the patient derecruted post withdrawal of the PEEP or she did have a component of flash pulmonary edema while PEEP was being weaned off. 2 Acute kidney injury related to ATN, nephrology has been consulted, ultrasound of the kidneys showed no evidence of hydronephrosis. Patient was initiated on hemodialysis on 09/14/2020. Permacath placed 09/20/2020. Patient is undergoing daily dialysis. She is currently still in a positive fluid balance. 3 Acute diabetic ketoacidosis, resolved sugar is still poorly controlled, the patient is currently on long-acting insulin in the patient's Levemir 25 units twice a day along with NovoLog 5 units 4 times a day. Blood sugars are still somewhat elevated. 4 Acute metabolic acidosis related to acute DKA, and acute kidney injury. Recovered with bicarbonate infusion 5 Increased d-dimer, related to COVID-19 pneumonia, currently on Lovenox 30 mg daily 6 Possible sepsis with increased pro-calcitonin suggesting presence of bacterial infection, cultures have been sent and all negative 7 Diabetes mellitus type 2 8 Morbid obesity with BMI 45.3 kg/m 9 Nonsmoker Plan Dropped the PEEP to 18 and keep the tidal volume of 375. FiO2 of 100%. Check blood gases postdialysis Complete dialysis Continue Decadron 4 mg IV every 24 hours Continue IV heparin Continue cefepime and vancomycin Awaiting results of the echocardiogram Doppler of the lower extremities in a negative D-dimer has been noted Continue Levemir insulin 25 units twice a day and keep the NovoLog 5 units every 6 hours along with a sliding scale coverage. We'll increase the maintenance Levemir dose if needed depending on her blood sugar control. Stool for C Diff negative Condition is critical we'll continue to follow make further recommendations based on her progress. This is a critically care evaluation that was on a more than 30 minutes. Time with Patient: Greater than 30
[2020-09-28] MEDS: fentaNYL (PF). 1,000 MCG in SODIUM CHLORIDE 0.9% 80 ML IV SCH ×2 (11:04→15:43)
[2020-09-28 11:39] LABS: Glucose,Whole Blood 200 mg/dL (75-99)
[2020-09-28] MEDS: METOPROLOL TARTRATE 25 MG TAB PO SCH ×2 (12:14→21:07)
[2020-09-28 12:22] LABS: Glucose,Whole Blood 205 mg/dL (75-99)
[2020-09-28 12:33] LABS: ABG Base Excess -3.9 mmol/L; ABG HCO3 23 mmol/L (21-25); ABG Oxygen Saturation 93.3 % (94-97); ABG PCO2 45 mmHg (35-45); ABG PO2 74 mmHg (83-108); ABG TCO2 24 mmol/L (19-24); Allen Test Performed? Yes
--- NOTE | 2020-09-28 12:33 | P.PN ---
Progress Note - Text Progress Note Date: 09/28/20 Patient remained stable. Tracheostomy site is clean. PEG site is clean. She'll receive supportive care
[2020-09-28] MEDS: SODIUM FERRIC GLUCONAT-SUCROSE 125 MG in SODIUM CHLORIDE 0.9% 100 ML IVPB SCH (12:38)
[2020-09-28 13:16] LABS: Prothrombin Time 10.6 sec (9.0-12.0)
[2020-09-28] MEDS: NOREPINEPHRINE 8 MG in SODIUM CHLORIDE 0.9% 250 ML IV SCH (13:32)
--- NOTE | 2020-09-28 13:34 | P.PN ---
Subjective Progress Note Date: 09/28/20 HISTORY OF PRESENT ILLNESS 35-year-old female patient of Dr. Arroyo with past medical history of type 2 diabetes comes in with acute shortness of breath associated with high light s ugars. Patient on admission was found to have a fever of 101.5 pulse rate 125 respiratory rate 20. Blood pressure 132/106. On chest x-ray obtained in the ER suggestive of bilateral infiltrates concerning for call with pneumonia. COVID PCR was positive. On admissions patient had an ABG with a pH of 7.14 pCO2 of 20, pO2 of 59, bicarb of 7. Patient's blood sugar on admission was 424 on assessment today patient's blood work patient had a sodium 135 potassium 5.4 chloride 123 bicarb less than 5 and creatinine 0.73. D-dimer was elevated on admission patient 9 28 patient given 1 L of IV fluids followed by normal saline running at 200 mL/h. Patient was positive for acetone on admission. She will anion gap closed and was switched to D5NS. Insulin drip was continued during the night and was switched to patient's home medication this morning. One dose of remdesiver was ordered. Apparently around noon, A- team was called on the patient secondary to hypoxia patient's oxygen saturation dropped to the 70s and 80s on 100% nonrebreather. Patient was switched to BiPAP on 18/12 and is doing better o FiO2 of 80%. ABG was obtained and ph was 7. 14 pCO2 of 28 bicarb of 7 pO2 of 17. Patient noted to have uncompensated metabolic acidosis with compensated respiratory alkalosis. Stat dose of 1 amp bicarb was given and followed by sodium bicarbonate drip. Insulin drip restarted. Patient's initiated on dexamethasone 6 mg IV twice a day. Potassium phosphate ordered as phosphorus is low. Patient's repeat blood gases suggest a pH of 7.25, CO2 32 pO2 of 72 bicarb 14. I will not normal saline at 100 mL/h as patient's anion gap has increased. Patient given 1 dose of 2 mg of morphine with improvement in respiratory rate. One dose of Ativan 0.5 mg was given. Xanax 0.25 twice a day along with Ativan 0.5 IV every 6 hours ordered for the patient. Vitals were evaluated patient pulse 129 [id number]. She was moved to the ICU. Precedex drip was initiated. Lopressor was initiated at 25 twice a day. Metoprolol tartrate 5 mg IV every 6 hours. Systolic blood pressure more than 160. Started chest x-ray was obtained and suggest stable bilateral consolidation suggestive of COVID-19 pneumonia. 09/12 patient is seen in the ICU is currently mechanically ventilated and sedated on vent settings of respiratory rate 36, tidal volume 375 FiO2 80% PEEP of 18.. Vital signs reviewed patient had a temp of 100.4 pulse 150 respiratory rate 36 oxygen saturation 95% on 80% on fio2 .'s labs are reviewed which patient had a d-dimer 1.84 that is increased to 14.3. Arterial Blood gas suggest ph 7.35, CO2 40, po2 62, . Her BMP suggest a sodium 135 potassium 3.7 chloride 112 bicarb 21 creatinine 1.57 for calcitonin is 3.5 CRP is increased from 8.78.2 LDH is increased to 2614. Patient remains on Pneumovax, propofol drip. Lovenox increased to 50 subcu twice a day. Patient received 2 L of IV fluids. Continue IV fluids at 100 mL/h. Bicarb drip discontinued patient initiated on Zosyn 3.375 every 8 hours. Continue insulin drip at 4 units per hour. Patient is currently in prone positioning 09/13: Patient evaluated in the ICU remains on Ventilation continues to be sedated, in prone position. Vent settings are respiratory rate 36, tidal vital 375, FiO2 70% PEEP of 18. ABG shows pO2 of 82, PCO2 of 39, pH is 7.19. Latest labs show WBC 11.1, hemoglobin 13.2, d-dimer still pending, but yesterday was up to 14.3. Creatinine up to 3.4, BUN 24 sodium 137, potassium 4.0. Patient's urine output has been low, nephrology on consult. Bicarb drip increased to 100 miles an hour, receiving another liter of normal saline, she did have a ultrasound that showed unremarkable bilateral kidneys. Repeat chest x-ray showed bilateral lung infiltrates that are stable. Anion gap has closed, will start Lantus 10 units at at bedtime Novolog every 6 hours. 09/14: Patient is seen in the ICU, still currently mechanically ventilated and sedated. She continues in the prone position. Her oxygen quickly drops if she is not in prone. Patient's kidney function has worsened. Laboratory values show creatinine of 4.87, BUN 33, LDH 2191, C-reactive protein 2.7. ABG shows pH 7.32, pO2 of 60, pCO2 43. Patient is making almost no urine overnight. Nephrology is following patient continues on cefepime for urinary tract infection, culture is still pending. Vascular has been consulted for placement of temporary hemodialysis catheter for plans for dialysis. 09/15: Patient evaluated in the ICU, continues to be mechanically ventilated and sedated on assist control ventilation rate of 36, tidal volume 375, FiO2 100% and PEEP of 18. ABG today shows pO2 58, pCO2 of 45, and pH 7.35. She continues on tube feedings. Yesterday patient underwent ultrasound-guided right internal jugular non-tunneled hemodialysis catheter placement. Patient underwent hemodialysis treatment last night and plans have another hemodialysis treatment today. She continues to make almost no urine. She continues on cefepime for antibiotic coverage, and continues on Decadron and Lovenox. 09/16: Patient seen on follow-up remains in the ICU mechanically ventilated and sedated. She continues on assist control rate of 36, tidal volume 375, FiO2 100% and PEEP of 20. PEEP had to be increased due to patient had to be in supine position for dialysis, will go back to prone position once dialysis is complete. ABG shows pH 7.32, pCO2 49, PaO2 61. Laboratory values showed WBC 11.2, hemoglobin 11, sodium 134, creatinine 4.44, BUN 38. Urine culture shows no growth, blood cultures show no growth to date. Repeat chest x-ray shows bilateral pleural effusions, correlate for ARDS, pulmonary edema, diffuse pneumonia, findings are stable from last exam. Patient does not require any pressors, blood pressure 133/57, heart rate 78. 5/16: Patient was evaluated in the ICU today for follow-up. She continues to be intubated and on mechanical ventilation. Current vent settings are tidal volume 375, FiO2 100% and PEEP of 20. ABG shows pH 7.37, pCO2 40, pO2 102. She continues with intermittent prone positioning. Patient continues to have almost no urine output, maintained on dialysis. Patient received dialysis yesterday without complication. Laboratory values revealed WBC 10.3, hemoglobin 10.4, sodium 132, potassium 3.1, BUN 33, creatinine 4.29, LDH 1913, C-reactive protein 1.3. Urine and sputum cultures are negative, blood cultures show no growth to date. Consult placed to dietary to start TPN[ ] 09/18: She remains in the intensive care unit intubated and on mechanical ventilation with tidal volume 375, FiO2 60 and PEEP of 20. Patient is being prone to daily at approximately 16 hours per day. Pulmonary medicine has added in Dr. Zhang to do PEG tube and trach today. Patient is not on vasopressors. Repeat blood work reveals WBC 12.6, hemoglobin 9.8, platelet count 212. Sodium 133, potassium 3.2, chloride 102, CO2 21, BUN 35 and creatinine 4.12. Blood sugar 126. Patient underwent hemodialysis yesterday with removal of 2 L and is scheduled again today with goal of 2-3 L and is scheduled again tomorrow. 09/19: She is scheduled for hemodialysis today and is off fentanyl temporarily. Patient is status post trach and PEG tube yesterday. And she remains on mechanical ventilation. Pulse ox 93-95%. She has been afebrile, heart rate 64, respiratory rate 36, blood pressure 115/50. Fentanyl is off to improve blood pressure for hemodialysis which is scheduled for today. Contacted vascular surgery about permanent hemodialysis catheter. Repeat blood work reveals WBC 14.3, hemoglobin 9.6, platelet count 200. D-dimer 6.48. LDH 1686. C-reactive protein 1.1. BUN 34 creatinine 3.81. Sodium 130, potassium 3.5, chloride 101, CO2 18. Blood sugars running between 101 198. Plan is to wean off Pneumovax today. Patient remains on insulin drip. Repeat chest x-ray reveals bilateral multifocal confluent opacities consistent with COVID-19. Some improved aeratio n periphery of the left lung and worsening opacities throughout the right lung. 09/20: She remains in the intensive care unit on mechanical ventilation. She has been afebrile, heart rate 65, respiratory rate 37, blood pressure 121/70, pulse ox 91-99%. Repeat blood work reveals WBC 14.5, hemoglobin 9.1, platelet count 216. D-dimer 6.13. Sodium 133, potassium 3.1, chloride 102, CO2 18, BUN 35 and creatinine 4.27. Blood sugars running between 128 and 143. LDH 1717. C- reactive protein 1.7. Patient remains on insulin drip which will be transitioned to NovoLog scale every 6 hours. Patient is scheduled for permanent hemodialysis catheter placement today with vascular surgery. Repeat chest x-ray reveals stable diffuse bilateral interstitial and airspace disease. Possible small right effusion. His work is following [facility] Do not anticipate discharge until next week. 09/21: Patient is undergoing hemodialysis. She remains on mechanical ventilation with tidal volume 375, FiO2 down to 45 and PEEP was decreased to 15. Patient is continued on propofol, fentanyl drips. She is on tube feedings at goal. Patient was taken off insulin drip yesterday and on scale only but blood sugars are running in the 200s, Levemir scheduled at bedtime will be added. Other blood work reveals WBC 13.3, hemoglobin 8.7, platelet count 192. Sodium 137, potassium 3.6, chloride 107, CO2 18, BUN 34 and creatinine 4.21. Repeat chest x-ray is stable. 09/22: She remains in the intensive care on mechanical ventilation with tidal volume 375, FiO2 of 50 and PEEP of 10. Pulse ox is running 96%. She is afebrile, heart rate in the 50s, respiratory rate 36, blood pressure 100/64. Repeat blood work reveals WBC 16.5, hemoglobin 8.9, platelet count 213. Sodium 134, potassium 3.7, chloride 103, CO2 21, BUN 34 and creatinine 3.89. Blood sugars running in the 200s to 324. Levemir increased to 16 units at bedtime and continue NovoLog scale every 6 hours. Patient is on tube feedings at goal. She has a Haley catheter in with a scant amount of dark/brown urine. Fecal management system is in place. Repeat chest x-ray reveals diffuse bilateral airspace infiltrates persist unchanged. Patient is scheduled for hemodialysis tomorrow morning on Friday. 09/23: Patient remains on mechanical ventilation with tidal volume 3.75, FiO2 50 and PEEP of 10. 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 She has no urine output. Fecal management system is in place. She is undergoing dialysis at this time with plan for removal of 2-1/2 L. She has been afebrile, heart rate in the 50s, respiratory rate 36, blood pressure 108/76 and pulse ox 89%. WBC 13.6, hemoglobin 9.1, platelet count 194. Sodium 136, potassium 3.0 and was replaced, chloride 106, CO2 21, BUN 49 creatinine 5.31. Blood sugars are running between 182 and this morning 194. Patient was still in the 200s and 300s. Levemir last evening was increased to 16 units. Patient remains on propofol and fentanyl drips. Lovenox was increased to 60 mg twice daily. 09/24: PEEP was increased today to 20, tidal volume is at 375 and FiO2 of 50%. Patient has been afebrile. She has been started on levo fed. Repeat chest x- ray reveals bilateral multifocal confluent opacities consistent with Covid 19 or ARDS redemonstrated. Nephrology will plan dialysis for tomorrow for 3 L. Patient remains on propofol fentanyl and Nimbex. WBC 12.5, hemoglobin 9.8, platelet count 161. D-dimer 13.3. Sodium 132, potassium 3.4, chloride 102, CO2 20, BUN 48 and creatinine 4.67. Blood sugars extremely elevated to 96-409. LDH 2217. 09/25: Patient remains in the intensive care unit on mechanical ventilation with tidal volume 375, FiO2 50 and PEEP of 20. Patient is afebrile, heart rate 61, respiratory rate 36, blood pressure 102/56, pulse ox 97%. Repeat blood work reveals WBC 9.3, hemoglobin 8.5 and platelet count 171. Sodium 130, potassium 3.7, chloride 100, CO2 20, BUN 61 creatinine 5.65. Blood sugars have been elev ated up to 455. Levemir increased to 20 units twice daily, NovoLog 5 units every 6 hours and continue NovoLog scale. Patient is scheduled for hemodialysis today. Repeat chest x-ray reveals bilateral multifocal and confluent opacities. Decadron and Lovenox dosing change by pulmonary. Patient is off norepinephrine. 09/26: Patient remains in the intensive care unit on mechanical ventilation with tidal volume 375, FiO2 50 and PEEP of 15. She has been afebrile, heart rate 91, blood pressure 114/68, pulse ox 99%. 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 Sodium 134, potassium 3.6, chloride 102, CO2 22, BUN 41 creatinine 4.21. Patient has improved blood sugars this morning running 150s and 160s. Diabetic medications were adjusted yesterday. Patient is awake and alert and interacting. Yesterday, patient had PICC line inserted by interventional radiology. Repeat chest x-ray reveals diffuse airspace infiltrates in both lung ann appear to progress slightly in the interval. 09/27: Patient remains in intensive care unit on mechanical ventilation with improvement of settings with tidal volume 375, FiO2 decreased to 40 and PEEP decreased to 10. Patient is on hemodialysis every other day and plan to remove 3 L today. Patient is more awake and alert. She is slow to respond but is able to follow simple commands. Blood sugars are running between 84 and 123. Repeat blood work reveals WBC 7.1, hemoglobin 8.1, platelets 152. Sodium 135, potassium 3.6, chloride 103, CO2 21, BUN 53 and creatinine 5.88. Repeat chest x-ray revealed cardiomegaly and pulmonary edema. Patient is on tube feedings:. Patient is not require vasopressors and is off sedation. Fecal management system remains in place for brown liquid stool. C. difficile was negative. 09/28: Patient remains on mechanical ventilation with tidal volume 375, FiO2 increased to 80 and PEEP increased to 18. Patient had a rough night was very anxious, no pain. Xanax 0.25 mg 3 times daily was added. There is concern for pulmonary embolism for which patient was started on heparin drip, she is unable to undergo CAT scan. Venous Doppler bilateral lower extremities was nondiagnostic due to extensive edema in obese patient but minimal imaging of the popliteal veins does show flow. Repeat echocardiogram has been ordered. Cefepime has also been ordered at 1 g IV piggyback every 24 hours as well as vancomycin, pharmacy dosing. Patient is back on fentanyl drip, propofol drip and norepinephrine. Blood sugars are elevated and insulin Levemir will be i ncreased to 25 mg twice daily. Ferrlecit infusion has been ordered by nephrology for 4 days. Patient is undergoing hemodialysis today.temperature max 100.2, heart rate 134, respiratory rate 34, blood pressure 120/65, pulse ox 94%. 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 Repeat blood work reveals WBC 16.9, hemoglobin 9.7, platelet count 216. D-dimer 8.81. Sodium 134, potassium 3.8, chloride 99, CO2 25, BUN 43 and creatinine 5.36. Blood sugars in the 200s. AST 40. REVIEW OF SYSTEMS Unable to obtain due to mechanical ventilation. PHYSICAL EXAMINATION Gen: This is is a 35-year-old black female, patient is intubated and on mechanical ventilation, appears to be comfortable. HEENT: Head is atraumatic, normocephalic. Pupils equal, round. Sclerae is anicteric. Tracheostomy tube in place. NECK: Supple. No JVD. No lymphadenopathy. No thyromegaly. LUNGS: Scattered bilateral rhonchi. No intercostal retractions. HEART: Regular rate and rhythm. No murmur. ABDOMEN: Soft. Bowel sounds are present. No masses. No tenderness. PEG tube in place, area clean and dry. Fecal management system in place with brown stool. EXTREMITIES: No pedal edema. No calf tenderness. Dorsalis pedis +2 bilaterally. NEUROLOGICAL: Patient is sedated. ASSESSMENT AND PLAN 1. Acute hypoxic respiratory failure secondary to Covid 19 pneumonia and possible bacterial pneumonia. Patient was intubated on September 11. She is status post 1 dose of Remdesivir and 1 dose of Tocilizumab. Continue Ventolin inhaler 4 times daily, Symbicort twice daily, Decadron 4 mg IV daily, Lovenox 30 mg subcu daily, supplements. Status post PEG tube and trach. Patient started on cefepime and vancomycin 2. Acute diabetic ketoacidosis secondary to Covid 19 pneumonia, uncontrolled with hyperglycemia. Levemir 20 units twice daily, scheduled NovoLog 5 units every 6 hours and NovoLog scale. 3. Metabolic encephalopathy secondary to Covid 19 and DKA. 4. Sepsis and septic shock secondary to Covid 19 pneumonia. Continue as in #1. 5. Acute metabolic acidosis secondary to acute DKA, Covid 19 and acute kidney injury. 6. Diabetes mellitus type 2 uncontrolled with A1c 13.6. Continue as above. 7. Hypophosphatemia status post replacement. 8. Hyperkalemia secondary to DKA, resolved. 9. Sinus tachycardia secondary to sepsis, volume deficiency.Continue Lopressor 25 mg twice daily. 10. Acute kidney injury secondary to ATN secondary to Covid 19 and DKA. Patient continued on hemodialysis. Permanent dialysis catheter placed. 11. Possible acute gram-negative pneumonia versus M RSA pneumonia. Patient has been started on cefepime and vancomycin. 12. Hypertension. 13. Morbid obesity with BMI of 53. 14. DVT prophylaxis. Lovenox. 15. GI prophylaxis. Protonix 40 mg IV push daily. CODE STATUS: Full code Prognosis guarded. DISCHARGE PLAN Assisted Acute Care Impression and plan of care have been directed as dictated by the signing physician. Kimberly Boswell nurse practitioner acting as scribe for signing physician. Objective - Vital Signs Vital signs: Vital Signs Temp 100.2 F H 09/28/20 04:00 Pulse 140 H 09/28/20 08:00 Resp 39 H 09/28/20 08:00 BP 136/75 09/28/20 08:00 Pulse Ox 90 L 09/28/20 08:00 Intake & Output 09/27/20 09/28/20 09/28/20 18:59 06:59 18:59 Intake Total 911 1042.395 132.8 Output Total 4225 20 Balance -3314 1022.395 132.8 Weight 120.4 kg 120 kg Intake: IV 276 276 23 0.9 Normal Saline @ KVO 240 240 20 Pressure Bag 36 36 3 Intake, IV Titration 13.395 58.8 Amount Dexmedetomidine/0.9% NaCl 13.395 (Pmx) 400 mcg In Empty Bag 1 bag @ Per Protocol IV .Q0M [facility] Rx#:[id number] propofoL 1,000 mg In 58.8 Empty Bag 1 bag @ Per Protocol IV .Q0M [facility] Rx#: [id number] Tube Feeding 485 663 51 Other 150 90 Output: Urine 25 20 Stool 1200 Hemodialysis 3000 Other: Voiding Method Indwelling Catheter Indwelling Catheter ABP, PAP, CO, CI - Last Documented Arterial Blood Pressure 137/76 - Labs CBC & Chem 7: 09/28/20 04:25 09/28/20 04:25 Labs: Abnormal Lab Results - Last 24 Hours (Table) 09/27/20 09/27/20 09/27/20 Range/Units 12:00 12:00 12:13 WBC (3.8-10.6) k/uL RBC (3.80-5.40) m/uL Hgb (11.4-16.0) gm/dL Hct (34.0-46.0) % Neutrophils # (1.3-7.7) k/uL D-Dimer 7.04 H (<0.60) mg/L FEU ABG pH (7.35-7.45) ABG pCO2 (35-45) mmHg ABG pO2 (83-108) mmHg ABG Total CO2 (19-24) mmol/L ABG O2 Saturation (94-97) % Sodium (137-145) mmol/L BUN (7-17) mg/dL Creatinine (0.52-1.04) mg/dL Glucose (74-99) mg/dL POC Glucose (mg/dL) 123 H (75-99) mg/dL Iron 27 L (50-170) ug/dL TIBC 195 L (228-460) ug/dL Ferritin 548.7 H (10.0-291.0) ng/mL AST (14-36) U/L Total Protein (6.3-8.2) g/dL Albumin (3.5-5.0) g/dL 09/27/20 09/27/20 09/28/20 Range/Units 17:52 23:28 04:25 WBC 16.9 H (3.8-10.6) k/uL RBC 3.53 L (3.80-5.40) m/uL Hgb 9.7 L D (11.4-16.0) gm/dL Hct 30.3 L (34.0-46.0) % Neutrophils # 14.1 H (1.3-7.7) k/uL D-Dimer (<0.60) mg/L FEU ABG pH (7.35-7.45) ABG pCO2 (35-45) mmHg ABG pO2 (83-108) mmHg ABG Total CO2 (19-24) mmol/L ABG O2 Saturation (94-97) % Sodium (137-145) mmol/L BUN (7-17) mg/dL Creatinine (0.52-1.04) mg/dL Glucose (74-99) mg/dL POC Glucose (mg/dL) 174 H 187 H (75-99) mg/dL Iron (50-170) ug/dL TIBC (228-460) ug/dL Ferritin (10.0-291.0) ng/mL AST (14-36) U/L Total Protein (6.3-8.2) g/dL Albumin (3.5-5.0) g/dL 09/28/20 09/28/20 09/28/20 Range/Units 04:25 04:56 05:55 WBC (3.8-10.6) k/uL RBC (3.80-5.40) m/uL Hgb (11.4-16.0) gm/dL Hct (34.0-46.0) % Neutrophils # (1.3-7.7) k/uL D-Dimer (<0.60) mg/L FEU ABG pH 7.29 L (7.35-7.45) ABG pCO2 50 H (35-45) mmHg ABG pO2 37 L* (83-108) mmHg ABG Total CO2 26 H (19-24) mmol/L ABG O2 Saturation 59.6 L (94-97) % Sodium 133 L (137-145) mmol/L BUN 43 H (7-17) mg/dL Creatinine 5.36 H (0.52-1.04) mg/dL Glucose 231 H (74-99) mg/dL POC Glucose (mg/dL) 247 H (75-99) mg/dL Iron (50-170) ug/dL TIBC (228-460) ug/dL Ferritin (10.0-291.0) ng/mL AST 40 H (14-36) U/L Total Protein 5.7 L (6.3-8.2) g/dL Albumin 2.8 L (3.5-5.0) g/dL 09/28/20 Range/Units 06:20 WBC (3.8-10.6) k/uL RBC (3.80-5.40) m/uL Hgb (11.4-16.0) gm/dL Hct (34.0-46.0) % Neutrophils # (1.3-7.7) k/uL D-Dimer 8.88 H (<0.60) mg/L FEU ABG pH (7.35-7.45) ABG pCO2 (35-45) mmHg ABG pO2 (83-108) mmHg ABG Total CO2 (19-24) mmol/L ABG O2 Saturation (94-97) % Sodium (137-145) mmol/L BUN (7-17) mg/dL Creatinine (0.52-1.04) mg/dL Glucose (74-99) mg/dL POC Glucose (mg/dL) (75-99) mg/dL Iron (50-170) ug/dL TIBC (228-460) ug/dL Ferritin (10.0-291.0) ng/mL AST (14-36) U/L Total Protein (6.3-8.2) g/dL Albumin (3.5-5.0) g/dL
[2020-09-28] MEDS ORDERED: HEPARIN SODIUM 1,000 UN/ML (10ML VL) IV PRN (13:37)
[2020-09-28] MEDS ORDERED: CISATRACURIUM 2 MG/ML 5 ML VIAL IV ONE (13:45)
[2020-09-28 13:52] LABS: Amorphous Sediment,Urine Rare /hpf; Appearance,Urine Turbid (Clear); Bacteria,Urine Rare /hpf; Bilirubin,Urine Negative (Negative); Blood,Urine Moderate (Negative); Budding Yeast,Urine Many /hpf; Color,Urine Yellow; Glucose,Urine (UA) Trace (Negative); Ketones,Urine Negative (Negative); Leukocyte Esterase,Urine Large (Negative); Mucus,Urine Rare /hpf; Nitrite,Urine Negative (Negative); PH, Urine 6.5 (5.0-8.0); Protein,Urine 3+ (Negative); RBC,Urine 83 /hpf (0-5); Specific Gravity,Urine 1.021 (1.001-1.035); Squamous Epithelial Cell,Urine 6 /hpf (0-4); Urobilinogen,Urine <2.0 mg/dL (<2.0); WBC,Urine >182 /hpf (0-5)
[2020-09-28] MEDS: CISATRACURIUM 200 MG in SODIUM CHLORIDE 0.9% 180 ML IV SCH (13:56)
[2020-09-28] MEDS: SODIUM CHLORIDE 0.9% 500 ML 500 ML IV SCH (15:47)
--- NOTE | 2020-09-28 16:00 | ECHOF ---
Referral Reason:evaluate heart function MEASUREMENTS -------- HEIGHT: 149.9 cm WEIGHT: 119.7 kg BP: 196/88 IVSd: 1.8 cm (0.6 - 1.1) LVIDd: 3.4 cm (3.9 - 5.3) LVPWd: 1.9 cm (0.6 - 1.1) EDV(Teich): 48 ml IVSs: 2.0 cm LVIDs: 2.1 cm LVPWs: 2.3 cm %IVS Thck: 12 % ESV(Teich): 15 ml EF(Teich): 68 % %FS: 37 % SV(Teich): 33 ml RVIDd: 3.1 cm (< 3.3) RA Diam: 4.3 cm LALs A4C: 4.6 cm LAAs A4C: 12.6 cm LAESV A-L A4C: 29 ml LAESV MOD A4C: 28 ml Ao Diam: 2.8 cm (2.0 - 3.7) AV Cusp: 1.5 cm (1.5 - 2.6) AV Vmax: 1.32 m/s AV maxP.99 mmHg TR Vmax: 3.04 m/s TR maxP.90 mmHg RAP: 5.00 mmHg RVSP: 41.90 mmHg FINDINGS -------- Resting tachycardia (HR>100bpm). This was a technically adequate study. Pt. on a vent. The left ventricular size is normal. There is severe concentric left ventricular hypertrophy. Ove rall left ventricular systolic function is normal with, an EF between 55 - 60 %. The right ventricle is mildly enlarged. The left atrium is mildly dilated. The right atrial size is normal. Interatrial and interventricular septum intact. There is no evidence of aortic regurgitation. There is no evidence of aortic stenosis. No mitral regurgitation. [id number] tricuspid regurgitation present. There is mild to moderate pulmonary hypertension. The right ventricular systolic pressure, as measured by Doppler, is 41.90mmHg. There is no pulmonic regurgitation present. The aortic root size is normal. IVC Not well visulized. There is no pericardial effusion. CONCLUSIONS -------- 1. The left ventricular size is normal. 2. There is severe concentric left ventricular hypertrophy. 3. Overall left ventricular systolic function is normal with, an EF between 55 - 60 %. 4. The right ventricle is mildly enlarged. 5. The left atrium is mildly dilated. 6. [id number] tricuspid regurgitation present. 7. There is mild to moderate pulmonary hypertension. 8. The right ventricular systolic pressure, as measured by Doppler, is 41.90mmHg. H[employer] PLATE PRESS OPERATOR: Kathryn Mejia RDCS
[2020-09-28] MEDS: ARTIFICIAL TEARS OINTMENT 3.5 GM TUBE BOTH EYES SCH ×2 (16:32→21:07)
[2020-09-28 18:09] LABS: ABG Base Excess -5.8 mmol/L; ABG HCO3 22 mmol/L (21-25); ABG Oxygen Saturation 89.9 % (94-97); ABG PCO2 53 mmHg (35-45); ABG PH 7.22 (7.35-7.45); ABG PO2 67 mmHg (83-108); ABG TCO2 24 mmol/L (19-24); Allen Test Performed? Yes
[2020-09-28] MEDS: fentaNYL (PF) 2,500 MCG in SODIUM CHLORIDE 0.9% 200 ML IV SCH (18:10)
[2020-09-28 18:25] LABS: Glucose,Whole Blood 307 mg/dL (75-99)
[2020-09-28 18:25] LABS: Glucose,Whole Blood 295 mg/dL (75-99)
[2020-09-28 23:47] LABS: Glucose,Whole Blood 207 mg/dL (75-99)
[2020-09-29] MEDS: INSULIN ASPART (NovoLOG) 100 UNIT/ML VIAL SQ SCH ×8 (00:04→18:37)
[2020-09-29] MEDS: ARTIFICIAL TEARS OINTMENT 3.5 GM TUBE BOTH EYES SCH ×6 (00:05→20:44)
[2020-09-29] MEDS: CISATRACURIUM 200 MG in SODIUM CHLORIDE 0.9% 180 ML IV SCH ×2 (02:28→14:28)
[2020-09-29] MEDS: fentaNYL (PF) 2,500 MCG in SODIUM CHLORIDE 0.9% 200 ML IV SCH ×2 (04:15→14:18)
[2020-09-29] MEDS: HEPARIN SOD,PORK IN 0.45% NACL 25,000 UNIT in 0.45% NACL 1 250ML.BAG IV SCH (04:59)
[2020-09-29 05:14] LABS: Basophils % (A) 0 %; Eosinophils # (A) 0.3 k/uL (0-0.7); Eosinophils % (A) 3 %; HCT 25.2 % (34.0-46.0); Hypochromasia Slight; Lymphocytes # (A) 1.1 k/uL (1.0-4.8); Lymphocytes % (A) 10 %; MCH 27.9 pg (25.0-35.0); MCHC 32.5 g/dL (31.0-37.0); MCV 85.9 fL (80.0-100.0); Monocytes # (A) 0.6 k/uL (0-1.0); Monocytes % (A) 5 %; Neutrophils # (A) 8.4 k/uL (1.3-7.7); Neutrophils % (A) 79 %; Platelet Count 189 k/uL (150-450); Poikilocytosis Slight; RBC 2.94 m/uL (3.80-5.40); RDW 15.4 % (11.5-15.5); WBC 10.6 k/uL (3.8-10.6)
[2020-09-29 05:25] LABS: ABG Base Excess -3.3 mmol/L; ABG HCO3 23 mmol/L (21-25); ABG Oxygen Saturation 96.2 % (94-97); ABG PCO2 50 mmHg (35-45); ABG PH 7.28 (7.35-7.45); ABG PO2 86 mmHg (83-108); ABG TCO2 25 mmol/L (19-24); Allen Test Performed? Yes
[2020-09-29 05:28] LABS: Albumin 2.8 g/dL (3.5-5.0); Total Bilirubin 0.2 mg/dL (0.2-1.3); Total Protein 5.9 g/dL (6.3-8.2)
[2020-09-29 06:05] LABS: HGB 8.2 gm/dL (11.4-16.0)
[2020-09-29 06:13] LABS: Glucose,Whole Blood 155 mg/dL (75-99)
[2020-09-29] MEDS: INSULIN DETEMIR (LEVEMIR) 100 UNIT/ML SYR SQ SCH ×2 (06:40→20:39)
[2020-09-29] MEDS: SEVELAMER 800 MG TAB PO SCH ×3 (06:40→17:02)
--- NOTE | 2020-09-29 07:23 | XR ---
EXAMINATION TYPE: XR chest 1V DATE OF EXAM: 09/29/2020 COMPARISON: [id number] HISTORY: SOB, Follow Up FINDINGS: Indwelling tubes and catheters are unchanged. Diffuse airspace infiltrates persist although there is moderate interval improvement. Stable appearance of the cardio-mediastinal structures at this time. IMPRESSION: 1. Diffuse airspace infiltrates persist although there is moderate interval improvement. Clinical co rrelation and follow up until resolution is recommended.
[2020-09-29] MEDS: ALBUTEROL HFA INHALER INHALATION SCH ×4 (07:57→20:24)
[2020-09-29] MEDS: SYMBICORT 160-4.5 MCG INHALER INHALATION SCH ×2 (07:58→20:24)
[2020-09-29] MEDS ORDERED: VANCOMYCIN 1,750 MG in SODIUM CHLORIDE 0.9% 500 ML 500 ML IVPB ONE (08:00)
[2020-09-29] MEDS: CEFEPIME 1 GM in SODIUM CHLORIDE 0.9% 50 ML IVPB SCH (08:09)
[2020-09-29] MEDS: NOREPINEPHRINE 8 MG in SODIUM CHLORIDE 0.9% 250 ML IV SCH (08:09)
[2020-09-29] MEDS: ASCORBIC ACID 500 MG TAB PO SCH ×2 (09:00→20:42)
[2020-09-29] MEDS: SODIUM BICARBONATE TAB 650 MG TAB PO SCH ×3 (09:00→21:54)
[2020-09-29] MEDS: ZINC SULFATE 220 MG CAP PO SCH (09:00)
[2020-09-29] MEDS: METOPROLOL TARTRATE 25 MG TAB PO SCH ×2 (09:00→20:43)
[2020-09-29] MEDS: CHOLECALCIFEROL 25 MCG (1000 IU) TABLET PO SCH (09:00)
[2020-09-29] MEDS: PANTOPRAZOLE 40 MG/10 ML VIAL IVP SCH (09:01)
[2020-09-29] MEDS: DEXAMETHASONE SOD PHOSPHATE 4 MG/ML 1 ML VIAL IV SCH (09:01)
--- NOTE | 2020-09-29 09:42 | P.PN ---
Progress Note - Text Progress Note Date: 09/29/20 The patient. Had some hypoxia last night. Her trach site is clean. There is no evidence of mucous plug. PEG site is clean. Patient will receive supportive care.
--- NOTE | 2020-09-29 09:52 | P.PN ---
Subjective Patient is seen in follow-up for acute kidney injury. Started on hemodialysis September 14. Oliguric. Status post tracheostomy and PEG tube placement this admission. Receiving tube feeding. Currently on 60% FiO2. On low-dose Levophed. Vital signs: Stable. General: The patient appeared well nourished and normally developed. HEENT: Tracheostomy noted. LUNGS: Breath sounds decreased. HEART: Regular rate and rhythm. Abdomen: Soft, no distention. EXTREMITITES: 1+ edema. Objective - Vital Signs Vital signs: Vital Signs Temp 98.3 F 09/29/20 08:00 Pulse 97 09/29/20 09:00 Resp 28 H 09/29/20 09:00 BP 104/58 09/29/20 09:00 Pulse Ox 98 09/29/20 09:00 Intake & Output 09/28/20 09/29/20 09/29/20 18:59 06:59 18:59 Intake Total 2461.884 1593.649 417.077 Output Total 2530 5 5 Balance -68.116 1588.649 412.077 Weight 120 kg 119.5 kg Intake: IV 276 276 69 0.9 Normal Saline @ KVO 240 240 60 Pressure Bag 36 36 9 Intake, IV Titration 0505.292 7002.649 288.077 Amount Cefepime 1 gm In Sodium 50 50 Chloride 0.9% 50 ml @ 12. 5 mls/hr IVPB Q24H [facility] Rx #:[id number] Cisatracurium 200 mg In 13.08 154.32 Sodium Chloride 0.9% 180 ml @ 1 MCG/KG/MIN 7.2 mls /hr IV .Q24H [facility] Rx#: [id number] Heparin Sod,Pork in 0.45% 244.72 250.0 NaCl 25,000 unit In 0.45 % NaCl 1 250ml.bag @ 18 UNITS/KG/HR 21.6 mls/hr IV .[id number] [facility] Rx#: [id number] Norepinephrine 8 mg In 23.994 67.609 128.097 Sodium Chloride 0.9% 250 ml @ 0.05 MCG/KG/MIN 11. 61 mls/hr IV .[id number] [facility] Rx#:[id number] Sodium Ferric Gluconat- 100 Sucrose 125 mg In Sodium Chloride 0.9% 100 ml @ 100 mls/hr IVPB DAILY [facility]LY [facility], [facility]–1983 Rx#:[id number] Vancomycin 1,750 mg In 500 Sodium Chloride 0.9% 500 ml 500 ml @ 167 mls/hr IVPB ONCE ONE Rx#: [id number] fentaNYL (PF) 2,500 mcg 242 In Sodium Chloride 0.9% 200 ml @ Per Protocol IV .Q0M [facility], [facility]–1983 Rx#:[id number] fentaNYL (PF). 1,000 mcg 95.35 In Sodium Chloride 0.9% 80 ml @ Per Protocol IV . Q0M [facility], [facility]–1983 Rx#:[id number] propofoL 1,000 mg In 480.74 383.72 109.98 Empty Bag 1 bag @ Per Protocol IV .Q0M [facility], [facility]–1983 Rx#: [id number] Tube Feeding 488 130 30 Other 190 90 30 Output: Urine 30 5 5 Hemodialysis 2500 Other: Voiding Method Indwelling Catheter Indwelling Catheter Indwelling Catheter ABP, PAP, CO, CI - Last Documented Arterial Blood Pressure 95/54 - Labs CBC & Chem 7: 09/29/20 04:55 09/29/20 04:55 Labs: Abnormal Lab Results - Last 24 Hours (Table) 09/28/20 09/28/20 09/28/20 Range/Units 08:54 11:38 12:20 RBC (3.80-5.40) m/uL Hgb (11.4-16.0) gm/dL Hct (34.0-46.0) % Neutrophils # (1.3-7.7) k/uL APTT (22.0-30.0) sec ABG pH (7.35-7.45) ABG pCO2 (35-45) mmHg ABG pO2 (83-108) mmHg ABG Total CO2 (19-24) mmol/L ABG O2 Saturation (94-97) % Sodium (137-145) mmol/L BUN (7-17) mg/dL Creatinine (0.52-1.04) mg/dL Glucose (74-99) mg/dL POC Glucose (mg/dL) 200 H 205 H (75-99) mg/dL Total Protein (6.3-8.2) g/dL Albumin (3.5-5.0) g/dL Urine Appearance Turbid H (Clear) Urine Protein 3+ H (Negative) Urine Glucose (UA) Trace H (Negative) Urine Blood Moderate H (Negative) Ur Leukocyte Esterase Large H (Negative) Urine RBC 83 H (0-5) /hpf Urine WBC >182 H (0-5) /hpf Urine WBC Clumps Moderate H (None) /hpf Ur Squamous Epith Cells 6 H (0-4) /hpf Amorphous Sediment Rare H (None) /hpf Urine Bacteria Rare H (None) /hpf Urine Mucus Rare H (None) /hpf Urine Yeast (Budding) Many H (None) /hpf 09/28/20 09/28/20 09/28/20 Range/Units 12:20 12:30 18:01 RBC (3.80-5.40) m/uL Hgb (11.4-16.0) gm/dL Hct (34.0-46.0) % Neutrophils # (1.3-7.7) k/uL APTT 41.0 H (22.0-30.0) sec ABG pH 7.30 L 7.22 L (7.35-7.45) ABG pCO2 53 H (35-45) mmHg ABG pO2 74 L 67 L (83-108) mmHg ABG Total CO2 (19-24) mmol/L ABG O2 Saturation 93.3 L 89.9 L (94-97) % Sodium (137-145) mmol/L BUN (7-17) mg/dL Creatinine (0.52-1.04) mg/dL Glucose (74-99) mg/dL POC Glucose (mg/dL) (75-99) mg/dL Total Protein (6.3-8.2) g/dL Albumin (3.5-5.0) g/dL Urine Appearance (Clear) Urine Protein (Negative) Urine Glucose (UA) (Negative) Urine Blood (Negative) Ur Leukocyte Esterase (Negative) Urine RBC (0-5) /hpf Urine WBC (0-5) /hpf Urine WBC Clumps (None) /hpf Ur Squamous Epith Cells (0-4) /hpf Amorphous Sediment (None) /hpf Urine Bacteria (None) /hpf Urine Mucus (None) /hpf Urine Yeast (Budding) (None) /hpf 09/28/20 09/28/20 09/28/20 Range/Units 18:20 18:24 20:00 RBC (3.80-5.40) m/uL Hgb (11.4-16.0) gm/dL Hct (34.0-46.0) % Neutrophils # (1.3-7.7) k/uL APTT 65.9 H (22.0-30.0) sec ABG pH (7.35-7.45) ABG pCO2 (35-45) mmHg ABG pO2 (83-108) mmHg ABG Total CO2 (19-24) mmol/L ABG O2 Saturation (94-97) % Sodium (137-145) mmol/L BUN (7-17) mg/dL Creatinine (0.52-1.04) mg/dL Glucose (74-99) mg/dL POC Glucose (mg/dL) 307 H 295 H (75-99) mg/dL Total Protein (6.3-8.2) g/dL Albumin (3.5-5.0) g/dL Urine Appearance (Clear) Urine Protein (Negative) Urine Glucose (UA) (Negative) Urine Blood (Negative) Ur Leukocyte Esterase (Negative) Urine RBC (0-5) /hpf Urine WBC (0-5) /hpf Urine WBC Clumps (None) /hpf Ur Squamous Epith Cells (0-4) /hpf Amorphous Sediment (None) /hpf Urine Bacteria (None) /hpf Urine Mucus (None) /hpf Urine Yeast (Budding) (None) /hpf 09/28/20 09/29/20 09/29/20 Range/Units 23:45 02:00 04:55 RBC 2.94 L (3.80-5.40) m/uL Hgb 8.2 L D (11.4-16.0) gm/dL Hct 25.2 L (34.0-46.0) % Neutrophils # 8.4 H (1.3-7.7) k/uL APTT 66.8 H (22.0-30.0) sec ABG pH (7.35-7.45) ABG pCO2 (35-45) mmHg ABG pO2 (83-108) mmHg ABG Total CO2 (19-24) mmol/L ABG O2 Saturation (94-97) % Sodium (137-145) mmol/L BUN (7-17) mg/dL Creatinine (0.52-1.04) mg/dL Glucose (74-99) mg/dL POC Glucose (mg/dL) 207 H (75-99) mg/dL Total Protein (6.3-8.2) g/dL Albumin (3.5-5.0) g/dL Urine Appearance (Clear) Urine Protein (Negative) Urine Glucose (UA) (Negative) Urine Blood (Negative) Ur Leukocyte Esterase (Negative) Urine RBC (0-5) /hpf Urine WBC (0-5) /hpf Urine WBC Clumps (None) /hpf Ur Squamous Epith Cells (0-4) /hpf Amorphous Sediment (None) /hpf Urine Bacteria (None) /hpf Urine Mucus (None) /hpf Urine Yeast (Budding) (None) /hpf 09/29/20 09/29/20 09/29/20 Range/Units 04:55 05:20 06:11 RBC (3.80-5.40) m/uL Hgb (11.4-16.0) gm/dL Hct (34.0-46.0) % Neutrophils # (1.3-7.7) k/uL APTT (22.0-30.0) sec ABG pH 7.28 L (7.35-7.45) ABG pCO2 50 H (35-45) mmHg ABG pO2 (83-108) mmHg ABG Total CO2 25 H (19-24) mmol/L ABG O2 Saturation (94-97) % Sodium 133 L (137-145) mmol/L BUN 37 H (7-17) mg/dL Creatinine 4.50 H (0.52-1.04) mg/dL Glucose 143 H (74-99) mg/dL POC Glucose (mg/dL) 155 H (75-99) mg/dL Total Protein 5.9 L (6.3-8.2) g/dL Albumin 2.8 L (3.5-5.0) g/dL Urine Appearance (Clear) Urine Protein (Negative) Urine Glucose (UA) (Negative) Urine Blood (Negative) Ur Leukocyte Esterase (Negative) Urine RBC (0-5) /hpf Urine WBC (0-5) /hpf Urine WBC Clumps (None) /hpf Ur Squamous Epith Cells (0-4) /hpf Amorphous Sediment (None) /hpf Urine Bacteria (None) /hpf Urine Mucus (None) /hpf Urine Yeast (Budding) (None) /hpf 09/29/20 Range/Units 08:20 RBC (3.80-5.40) m/uL Hgb (11.4-16.0) gm/dL Hct (34.0-46.0) % Neutrophils # (1.3-7.7) k/uL APTT 49.5 H (22.0-30.0) sec ABG pH (7.35-7.45) ABG pCO2 (35-45) mmHg ABG pO2 (83-108) mmHg ABG Total CO2 (19-24) mmol/L ABG O2 Saturation (94-97) % Sodium (137-145) mmol/L BUN (7-17) mg/dL Creatinine (0.52-1.04) mg/dL Glucose (74-99) mg/dL POC Glucose (mg/dL) (75-99) mg/dL Total Protein (6.3-8.2) g/dL Albumin (3.5-5.0) g/dL Urine Appearance (Clear) Urine Protein (Negative) Urine Glucose (UA) (Negative) Urine Blood (Negative) Ur Leukocyte Esterase (Negative) Urine RBC (0-5) /hpf Urine WBC (0-5) /hpf Urine WBC Clumps (None) /hpf Ur Squamous Epith Cells (0-4) /hpf Amorphous Sediment (None) /hpf Urine Bacteria (None) /hpf Urine Mucus (None) /hpf Urine Yeast (Budding) (None) /hpf Microbiology - Last 24 Hours (Table) 09/29/20 00:06 Sputum Culture - Preliminary Sputum 09/28/20 08:54 Urine Culture - Preliminary Urine,Voided Assessment and Plan Plan: Assessment: 1. Acute kidney injury secondary to ATN secondary to COVID-19 and DKA. Baseline creatinine is near 1. Started on hemodialysis on September 14. Has p-cath. Oliguric. No hydronephrosis noted on kidney ultrasound. 2. DKA s/p insulin drip and IV fluids. 3. Acute hypoxic respiratory failure secondary to COVID-19 pneumonia. ?PE - on IV heparin. Status post tracheostomy this admission. 4. Metabolic acidosis secondary to acute kidney injury and DKA s/p bicarb drip. Now on oral bicarbonate. Improved. 5. Hyponatremia, hypervolemic. Stable. Blood sugar stable. 6. Hyperphosphatemia secondary to acute kidney injury. Maintained on Renvela. 7. Anemia of chronic illness and kidney disease. Maintained on Aranesp. Iron deficiency noted. 8. Fluid overload. Plan: Currently seen while undergoing hemodialysis. Another treatment tomorrow mostly for ultrafiltration. Maintain tube feeds. Avoid nephrotoxins. Continue to monitor renal function and urine output. Monitor for renal recovery. Wean FiO2 and vasopressors. Maintain IV iron.
--- NOTE | 2020-09-29 11:11 | P.PN ---
Subjective Progress Note Date: 09/29/20 On 09/25/2020, the patient is being seen in follow-up in the intensive care unit. For now, the patient remains in respiratory failure, remains intubated on a mechanical ventilator. She is post, respiratory failure secondary to COVID-19 related to pneumonia with secondary ARDS. The patient remained on assist control mode at the rate of 36 and a tidal volume of 375 and FiO2 of 50% with a PEEP of 20. The peak air pressure was 43. The static pressure was 37. The blood gases from today showed a pH of 7.33 with a pCO2 of 38 and pO2 of 95. Chest x-ray still consistent with diffuse bilateral pulmonary infiltrates with bilateral multifocal and confluent opacities consistent with COVID-19 related pneumonia/ARDS. The patient has been on steroids or along the patient is still on Decadron 6 mg IV every 24 hours. The patient is also on Lovenox 60 mg subcu every 12 hours. She is requiring norepinephrine infusion low-dose of 0.01 mcg/kg per minute. She remains in renal failure. Creatinine today is at 5.65 with a BUN of 61. The net fluid balance is been +38 mL over the past 24 hours. The patient's last hemodialysis session was on 09/23/2020 with a total of 2.5 L of fluids was removed and the patient is scheduled to have another session of hemodialysis today. The patient this morning is sedated with propofol running at 50 mcg/kg per minute. Nevertheless, despite that, she is arousable and she opens her eyes spontaneously. Doesn't follow commands consistently. Her white cell count is at 9.3 with a hemoglobin of 8.5 blood sugars remain elevated and the patient is on Levemir insulin 20 units twice a day and the patient is also started on lower log 5 units every 6 hours [id number] plus a signs good coverage. The patient continues to receive enteral feeds and the patient is currently on vital high protein at the rate of 45 mL an hour. IV fluids with normal saline at the rate of 20 mL an hour. The patient is afebrile. No other significant issues overnight for now. 5 2020, ration remains on a mechanical ventilator. There is a case of COVID-19 related pneumonia/ARDS. This morning, the patient has been on assist-control at the rate of 28 with a tidal volume of 375 and FiO2 of 50% and a PEEP of 15. The peak air pressure is 37 and the plateau airway pressure is 31. The blood gas showed a pH of 7.41 with a pCO2 of 38 and pO2 of 73. Chest x-ray is showing the pulmonary infiltrates. The patient has a hemodialysis catheter in her right IJ. The pulmonary infiltrates are essentially the same probably slightly improved compared to yesterday. Note that the patient also has dialysis-dependent renal failure. She is being dialyzed periodically. Her last session of hemodialysis was yesterday where a total of 3.3 of fluid was removed without any major diffi culties or hemodynamic instability. The patient otherwise is awake. She is off sedation. She is watching television. She is following simple commands. Her blood work shows a white cell count of 8.5 with a stable hemoglobin of 9. Platelets is at 169. D-dimer was lower at 4.57. Albumin is at 41 with a creatinine of 4.2. No electrolyte abnormalities or disturbances at this point in time. She is receiving enteral feeding for nutritional support via PEG tube. She is receiving his vital high protein at the rate of 31 mL an hour. She is producing adequate stool which is in the form of the diarrhea and the patient has a fecal management system in place. Output is in the order of 200-300 mL on a daily basis. She has been on Lovenox 40 mg subcu on a daily basis. The patient is also on Decadron 4 mg IV every 24 hours. She is on no antibiotics for now. IV fluids are running at 20 mL an hour of normal saline. She is afebrile. She is hemodynamically stable. No other significant events over the past 24 hours. She is been off propofol for the past 3 hours. 09/27/2020, the patient is awake off propofol. She is recovering from COVID-19 related pneumonia/ARDS. Responsive and the patient is awake and alert and she is following commands. Her chest x-ray from today is remaining unchanged with diffuse bilateral pulmonary infiltrates. Tracheostomy tube is in a good location. Meanwhile, the patient remains on a mechanical ventilator essentially on the same setting which includes a rate of 28 with a tidal volume of 375 and FiO2 of 40% and PEEP has been drop down to 10 and the blood gas shows a pH of 7.41 with a pCO2 of 35 and pO2 of 74. She is resting comfortably. Respiratory rate currently is at 34 and the patient is obviously less tachypneic compared to yesterday. She is undergoing periodic dialysis. Her last dialysis was on 09/25/2020 and the patient is undergoing dialysis today. The patient remains hemodynamically stable. She is moving all 4 extremities. She has generalized global weakness which is quite expected because of prolonged respiratory failure and prolonged ICU stay. She is receiving enteral feeding for nutritional support and she is on vital high protein at the rate of 45 mL an hour. Urine output is in the order of 5 mL an hour. Her electrolytes show a sodium of 135, potassium of 3.6, BUN is up 53 with a creatinine of 5.8. The patient has a white cell count 7.1 and hemoglobin of 8.1. The patient otherwise is hemodynamically stable. The patient is off sedation. The patient is able to move her extremities and there is no focal neurological deficit at this point in time. She is doing slow an ongoing progress for now. She is still having some loose liquidy diarrhea. Stool for C. diff has been negative. 09/28/2020, the patient has decompensated. As of midnight yesterday, the patient stated that she was not feeling well. She clearly communicated this with the nurses. Subsequently, she became more tachypneic and short of breath while on a mechanical ventilator and she began progressively hypoxic more confused and more restless and agitated. At that point, I initially started on Precedex. I increased the PEEP knowing that the patient was having ongoing hypoxemia while on the mechanical ventilator. Nevertheless, the patient was not responding and she continued to be having worsening and hypoxemia. At that p oint, she was started back comfortable for which is currently running at 75 mcg/kg per minute. She is fully sedated for now. She is back on a mechanical ventilator in the PEEP is currently up to 18 with a tidal volume of 375 and the rate of 28 and FiO2 of 100%. Note that the blood gases earlier prior to this change showed a pH of 7.29 with a pCO2 of 50 and pO2 of 37 and this was done while on a FiO2 of 90% with a PEEP of 6. The chest x-ray showing diffuse bilateral airspace disease system with ARDS. At that point, a workup was initiated regarding her hypoxemia. Doppler of the lower extremity was done and the results were negative. Noted the patient was already on Lovenox. Nevertheless, due to my concern of pulmonary embolism, I put the patient IV heparin. The d-dimer was repeated and the level came back at 8.8 with a slightly higher compared to yesterday. I also give the patient, addition of antibiotics including cefepime and vancomycin. Cultures are still pending. White cell count is up to 16.9. Pneumonia is considered although I'm not absolutely certain about this diagnosis. Meanwhile, the patient was asked to undergo another session of hemodialysis. Currently she is running a dialysis right now with an ultrafiltration of around goal. Echocardiogram was also ord ered. Her current pulse ox 97%. The patient exercises monitoring elevation of PEEP and sedation. The patient will have a follow-up blood gas done post dialysis the necessity ventilator changes will be done. Haley cath is in place. Urine output is minimal in the order of 20 disease over the past 12 hours. Note that her weight has been stable and there is no signs of any major volume change. She remains overloaded in terms of fluid in general. She has a PEG tube. Enterofeeding is still being continued with vital high protein at the rate of 51 mL an hour. Rest of the electrolytes are normal. Serum bicarb is 25. BUN is at 43 with a creatinine of 5.36. LFTs are normal. 09/29/2020, the patient remains sedated and paralyzed. I had to paralyze her yesterday as the patient was quite asynchronous a mechanical ventilator and she was peak pressuring significantly. As such, she is maintained on a combination of propofol which is running at 60 mcg/kg per minute and the patient is also o at 2 mcg/kg per minute and fentanyl at 2 mcg/kg/h. She is quite successful mechanical ventilator. Nevertheless, earlier this morning and overnight the pressures both at peak and static have been quite elevated with a peak airway pressure of 54 anesthetic at a pressure of 49. Based on that, and the morning evaluation, I dropped his tidal volume down to 350 and I also doubt the PEEP down to 15. Prior to that, the patient was on a PEEP of 18 with an FiO2 of 60% and a tidal volume of 375 with a rate of 28 and her blood. This was showing a pH of 7.28 with a pCO2 of 50 and pO2 of 86 to chest x-ray shows improvement in the left lung consolidation. The patient has a tracheostomy tube in place. Note that the patient is undergoing hemodialysis at this point in time with a goal of 3.3 L of ultrafiltration. Hemodynamically she is requiring pressors and she is currently on norepinephrine infusion at 0.09 macrovascular kilogram per minute. We are the process of weaning the pressors down as the patient's blood pressure could handle being weaned off the pressors. Meanwhile, she continues to receive enteral feeding for nutritional support with vital AF, at 10 mL an hour. She is able to tolerate the enteral feeding. In terms of her blood work, her white cell count that 0.6 with a hemoglobin of 8.2. The BUN is a 37 with a creatinine of 4.7 the sodium level is 133. Doppler of the lower extremity was negative and the echocardiogram showed a preserved LV function with an ejection fraction of 55-60%. There was severe concentric LVH. Mild pulmonary hypertension with a PA pressure of 41 mmHg. No valvular abnormalities. No RV dysfunction. Sputum culture has been negative. Urine cultures been negative. Blood culture has been also negative. We have her on IV cefepime and vancomycin as broad-spectrum antibiotic coverage. Objective - Vital Signs Vital signs: Vital Signs Temp 98.3 F 09/29/20 08:00 Pulse 89 09/29/20 10:00 Resp 28 H 09/29/20 10:00 BP 102/57 09/29/20 10:00 Pulse Ox 98 09/29/20 10:00 Intake & Output 09/28/20 09/29/20 09/29/20 18:59 06:59 18:59 Intake Total 2461.884 1593.649 543.107 Output Total 2530 5 5 Balance -68.116 1588.649 538.107 Weight 120 kg 119.5 kg Intake: IV 276 276 92 0.9 Normal Saline @ KVO 240 240 80 Pressure Bag 36 36 12 Intake, IV Titration 2877.995 1157.649 381.107 Amount Cefepime 1 gm In Sodium 50 50 Chloride 0.9% 50 ml @ 12. 5 mls/hr IVPB Q24H [facility] Rx #:[id number] Cisatracurium 200 mg In 13.08 154.32 Sodium Chloride 0.9% 180 ml @ 1 MCG/KG/MIN 7.2 mls /hr IV .Q24H [facility] Rx#: [id number] Heparin Sod,Pork in 0.45% 244.72 250.0 NaCl 25,000 unit In 0.45 % NaCl 1 250ml.bag @ 18 UNITS/KG/HR 21.6 mls/hr IV [id number] Rx#: [id number] Norepinephrine 8 mg In 23.994 67.609 146.247 Sodium Chloride 0.9% 250 ml @ 0.05 MCG/KG/MIN 11. 61 mls/hr IV .[id number] [facility] Rx#:[id number] Sodium Ferric Gluconat- 100 Sucrose 125 mg In Sodium Chloride 0.9% 100 ml @ 100 mls/hr IVPB DAILY [facility] Rx#:[id number] Vancomycin 1,750 mg In 500 Sodium Chloride 0.9% 500 ml 500 ml @ 167 mls/hr IVPB ONCE ONE Rx#: [id number] fentaNYL (PF) 2,500 mcg 242 In Sodium Chloride 0.9% 200 ml @ Per Protocol IV .Q0M [facility] Rx#:[id number] fentaNYL (PF). 1,000 mcg 95.35 In Sodium Chloride 0.9% 80 ml @ Per Protocol IV . Q0M [facility] Rx#:[id number] propofoL 1,000 mg In 480.74 383.72 184.86 Empty Bag 1 bag @ Per Protocol IV .Q0M [facility] Rx#: [id number] Tube Feeding 488 130 40 Other 190 90 30 Output: Urine 30 5 5 Hemodialysis 2500 Other: Voiding Method Indwelling Catheter Indwelling Catheter Indwelling Catheter ABP, PAP, CO, CI - Last Documented Arterial Blood Pressure 89/55 - Exam GENERAL EXAM: Sedated, 35-year-old female patient, on assist control mode of ventilation , sedated, comfortable sedated and paralyzed HEAD: Normocephalic/atraumatic. EYES: Normal reaction of pupils, equal size. Conjunctiva pink, sclera white. NOSE: Clear with pink turbinates. THROAT: No erythema or exudates. NECK: Right internal jugular hemodialysis catheter placed. Tracheostomy tube secured in place. The patient has Bivona #8. No masses, no JVD, no thyroid enlargement, no adenopathy. CHEST: No chest wall deformity. Symmetrical expansion. LUNGS: Equal air entry with bilateral crackles CVS: Regular rate and rhythm, normal S1 and S2, no gallops, no murmurs, no rubs ABDOMEN: PEG tube exit site clean and dry. No hepatosplenomegaly, normal bowel sounds, no guarding or rigidity. EXTREMITIES: No clubbing, no edema, no cyanosis, 2+ pulses and upper and lower extremities. MUSCULOSKELETAL: Muscle strength and tone normal. SPINE: No scoliosis or deformity SKIN: No rashes CENTRAL NERVOUS SYSTEM: Patient is sedated with propofol internal and the patient is also paralyzed with Nimbex. n - Labs CBC & Chem 7: 09/29/20 04:55 09/29/20 04:55 Labs: Abnormal Lab Results - Last 24 Hours (Table) 09/28/20 09/28/20 09/28/20 Range/Units 08:54 11:38 12:20 RBC (3.80-5.40) m/uL Hgb (11.4-16.0) gm/dL Hct (34.0-46.0) % Neutrophils # (1.3-7.7) k/uL APTT (22.0-30.0) sec ABG pH (7.35-7.45) ABG pCO2 (35-45) mmHg ABG pO2 (83-108) mmHg ABG Total CO2 (19-24) mmol/L ABG O2 Saturation (94-97) % Sodium (137-145) mmol/L BUN (7-17) mg/dL Creatinine (0.52-1.04) mg/dL Glucose (74-99) mg/dL POC Glucose (mg/dL) 200 H 205 H (75-99) mg/dL Total Protein (6.3-8.2) g/dL Albumin (3.5-5.0) g/dL Urine Appearance Turbid H (Clear) Urine Protein 3+ H (Negative) Urine Glucose (UA) Trace H (Negative) Urine Blood Moderate H (Negative) Ur Leukocyte Esterase Large H (Negative) Urine RBC 83 H (0-5) /hpf Urine WBC >182 H (0-5) /hpf Urine WBC Clumps Moderate H (None) /hpf Ur Squamous Epith Cells 6 H (0-4) /hpf Amorphous Sediment Rare H (None) /hpf Urine Bacteria Rare H (None) /hpf Urine Mucus Rare H (None) /hpf Urine Yeast (Budding) Many H (None) /hpf 09/28/20 09/28/20 09/28/20 Range/Units 12:20 12:30 18:01 RBC (3.80-5.40) m/uL Hgb (11.4-16.0) gm/dL Hct (34.0-46.0) % Neutrophils # (1.3-7.7) k/uL APTT 41.0 H (22.0-30.0) sec ABG pH 7.30 L 7.22 L (7.35-7.45) ABG pCO2 53 H (35-45) mmHg ABG pO2 74 L 67 L (83-108) mmHg ABG Total CO2 (19-24) mmol/L ABG O2 Saturation 93.3 L 89.9 L (94-97) % Sodium (137-145) mmol/L BUN (7-17) mg/dL Creatinine (0.52-1.04) mg/dL Glucose (74-99) mg/dL POC Glucose (mg/dL) (75-99) mg/dL Total Protein (6.3-8.2) g/dL Albumin (3.5-5.0) g/dL Urine Appearance (Clear) Urine Protein (Negative) Urine Glucose (UA) (Negative) Urine Blood (Negative) Ur Leukocyte Esterase (Negative) Urine RBC (0-5) /hpf Urine WBC (0-5) /hpf Urine WBC Clumps (None) /hpf Ur Squamous Epith Cells (0-4) /hpf Amorphous Sediment (None) /hpf Urine Bacteria (None) /hpf Urine Mucus (None) /hpf Urine Yeast (Budding) (None) /hpf 09/28/20 09/28/20 09/28/20 Range/Units 18:20 18:24 20:00 RBC (3.80-5.40) m/uL Hgb (11.4-16.0) gm/dL Hct (34.0-46.0) % Neutrophils # (1.3-7.7) k/uL APTT 65.9 H (22.0-30.0) sec ABG pH (7.35-7.45) ABG pCO2 (35-45) mmHg ABG pO2 (83-108) mmHg ABG Total CO2 (19-24) mmol/L ABG O2 Saturation (94-97) % Sodium (137-145) mmol/L BUN (7-17) mg/dL Creatinine (0.52-1.04) mg/dL Glucose (74-99) mg/dL POC Glucose (mg/dL) 307 H 295 H (75-99) mg/dL Total Protein (6.3-8.2) g/dL Albumin (3.5-5.0) g/dL Urine Appearance (Clear) Urine Protein (Negative) Urine Glucose (UA) (Negative) Urine Blood (Negative) Ur Leukocyte Esterase (Negative) Urine RBC (0-5) /hpf Urine WBC (0-5) /hpf Urine WBC Clumps (None) /hpf Ur Squamous Epith Cells (0-4) /hpf Amorphous Sediment (None) /hpf Urine Bacteria (None) /hpf Urine Mucus (None) /hpf Urine Yeast (Budding) (None) /hpf 09/28/20 09/29/20 09/29/20 Range/Units 23:45 02:00 04:55 RBC 2.94 L (3.80-5.40) m/uL Hgb 8.2 L D (11.4-16.0) gm/dL Hct 25.2 L (34.0-46.0) % Neutrophils # 8.4 H (1.3-7.7) k/uL APTT 66.8 H (22.0-30.0) sec ABG pH (7.35-7.45) ABG pCO2 (35-45) mmHg ABG pO2 (83-108) mmHg ABG Total CO2 (19-24) mmol/L ABG O2 Saturation (94-97) % Sodium (137-145) mmol/L BUN (7-17) mg/dL Creatinine (0.52-1.04) mg/dL Glucose (74-99) mg/dL POC Glucose (mg/dL) 207 H (75-99) mg/dL Total Protein (6.3-8.2) g/dL Albumin (3.5-5.0) g/dL Urine Appearance (Clear) Urine Protein (Negative) Urine Glucose (UA) (Negative) Urine Blood (Negative) Ur Leukocyte Esterase (Negative) Urine RBC (0-5) /hpf Urine WBC (0-5) /hpf Urine WBC Clumps (None) /hpf Ur Squamous Epith Cells (0-4) /hpf Amorphous Sediment (None) /hpf Urine Bacteria (None) /hpf Urine Mucus (None) /hpf Urine Yeast (Budding) (None) /hpf 05/28/21 05/28/21 05/28/21 Range/Units 04:55 05:20 06:11 RBC (3.80-5.40) m/uL Hgb (11.4-16.0) gm/dL Hct (34.0-46.0) % Neutrophils # (1.3-7.7) k/uL APTT (22.0-30.0) sec ABG pH 7.28 L (7.35-7.45) ABG pCO2 50 H (35-45) mmHg ABG pO2 (83-108) mmHg ABG Total CO2 25 H (19-24) mmol/L ABG O2 Saturation (94-97) % Sodium 133 L (137-145) mmol/L BUN 37 H (7-17) mg/dL Creatinine 4.50 H (0.52-1.04) mg/dL Glucose 143 H (74-99) mg/dL POC Glucose (mg/dL) 155 H (75-99) mg/dL Total Protein 5.9 L (6.3-8.2) g/dL Albumin 2.8 L (3.5-5.0) g/dL Urine Appearance (Clear) Urine Protein (Negative) Urine Glucose (UA) (Negative) Urine Blood (Negative) Ur Leukocyte Esterase (Negative) Urine RBC (0-5) /hpf Urine WBC (0-5) /hpf Urine WBC Clumps (None) /hpf Ur Squamous Epith Cells (0-4) /hpf Amorphous Sediment (None) /hpf Urine Bacteria (None) /hpf Urine Mucus (None) /hpf Urine Yeast (Budding) (None) /hpf 09/29/20 Range/Units 08:20 RBC (3.80-5.40) m/uL Hgb (11.4-16.0) gm/dL Hct (34.0-46.0) % Neutrophils # (1.3-7.7) k/uL APTT 49.5 H (22.0-30.0) sec ABG pH (7.35-7.45) ABG pCO2 (35-45) mmHg ABG pO2 (83-108) mmHg ABG Total CO2 (19-24) mmol/L ABG O2 Saturation (94-97) % Sodium (137-145) mmol/L BUN (7-17) mg/dL Creatinine (0.52-1.04) mg/dL Glucose (74-99) mg/dL POC Glucose (mg/dL) (75-99) mg/dL Total Protein (6.3-8.2) g/dL Albumin (3.5-5.0) g/dL Urine Appearance (Clear) Urine Protein (Negative) Urine Glucose (UA) (Negative) Urine Blood (Negative) Ur Leukocyte Esterase (Negative) Urine RBC (0-5) /hpf Urine WBC (0-5) /hpf Urine WBC Clumps (None) /hpf Ur Squamous Epith Cells (0-4) /hpf Amorphous Sediment (None) /hpf Urine Bacteria (None) /hpf Urine Mucus (None) /hpf Urine Yeast (Budding) (None) /hpf Microbiology - Last 24 Hours (Table) 09/29/20 00:06 Sputum Culture - Preliminary Sputum 09/28/20 08:54 Urine Culture - Preliminary Urine,Voided Assessment and Plan Plan: 1 Acute hypoxic respiratory failure secondary to COVID-19 pneumonia/ARDS, transferred to the intensive care unit on 09/11/2020 and intubated and placed on mechanical ventilator on 09/11/2020. Patient received 1 dose of Remdesivir on 09/11/2020, however based on her quick progression of her hypoxic respiratory failure she received Tocilizumab 800 mg on 09/11/2020. Tracheostomy and PEG tube placed on 09/18/2020. His morning, the patient is sedated and paralyzed. The patient is using a low tidal volume strategy as the patient's peak and static pressures are quite elevated and this is typical of ARDS post Covid. The patient is currently on a tidal volume of 350 with an FiO2 of 60%. Follow-up blood gases will be obtained to monitor the oxygenation and ventilation. Chest x-ray showing some limited improvement in the left lung. Pulmonary embolism is doubtful. Pneumonia is doubtful. Fluid overload is doubtful. The patient is receiving daily dialysis with ultrafiltration. 2 Acute kidney injury related to ATN, nephrology has been consulted, ultrasound of the kidneys showed no evidence of hydronephrosis. Patient was initiated on hemodialysis on 09/14/2020. Permacath placed 09/20/2020. Patient is undergoing daily dialysis. 3 Acute diabetic ketoacidosis, resolved sugar is still poorly controlled, the patient is currently on long-acting insulin in the patient's Levemir 25 units twice a day along with NovoLog 5 units 4 times a day. Blood sugars are still somewhat elevated. 4 Acute metabolic acidosis related to acute DKA, and acute kidney injury. Recovered . 5 Increased d-dimer, related to COVID-19 pneumonia, currently on IV heparin 6 Possible sepsis with increased pro-calcitonin suggesting presence of bacterial infection, cultures have been sent and all negative 7 Diabetes mellitus type 2 8 Morbid obesity with BMI 45.3 kg/m 9 Nonsmoker Plan Dropped the PEEP to 15 and keep the tidal volume of 350. FiO2 of 60%. Check blood gases postdialysis Complete dialysis. There is a goal of 3.3 L of ultrafiltration. Continue Decadron 4 mg IV every 24 hours Stop the patient's heparin and the patient will be started on Lovenox 30 mg subcu on a daily basis Continue cefepime and vancomycin echocardiogram also noted that there are essentially showing some mild pulmonary hypertension. Preserved LV function. Doppler of the lower extremities in a negative D-dimer has been noted Continue Levemir insulin 25 units twice a day and keep the NovoLog 5 units every 6 hours along with a sliding scale coverage. We'll increase the maintenance Levemir dose if needed depending on her blood sugar control. Stool for C Diff negative Into antibiotics for another 24 hours and this will be discontinued and the cultures are essentially negative. Condition is critical we'll continue to follow make further recommendations based on her progress. This is a critically care evaluation that was on a more than 30 minutes. Time with Patient: Greater than 30
[2020-09-29 11:17] LABS: Glucose,Whole Blood 130 mg/dL (75-99)
[2020-09-29 11:41] LABS: ABG Base Excess -1.2 mmol/L; ABG HCO3 25 mmol/L (21-25); ABG Oxygen Saturation 98.7 % (94-97); ABG PCO2 52 mmHg (35-45); ABG PO2 116 mmHg (83-108); ABG TCO2 27 mmol/L (19-24); Allen Test Performed? Yes
[2020-09-29] MEDS: SODIUM FERRIC GLUCONAT-SUCROSE 125 MG in SODIUM CHLORIDE 0.9% 100 ML IVPB SCH (13:16)
[2020-09-29] MEDS: SODIUM CHLORIDE 0.9% 500 ML 500 ML IV SCH (15:57)
[2020-09-29 18:24] LABS: Glucose,Whole Blood 142 mg/dL (75-99)
--- NOTE | 2020-09-29 21:03 | P.PN ---
Subjective Progress Note Date: 09/29/20 HISTORY OF PRESENT ILLNESS 35-year-old female patient of Dr. Arroyo with past medical history of type 2 diabetes comes in with acute shortness of breath associated with high light sugars. Patient on admission was found to have a fever of 101.5 pulse rate 125 respiratory rate 20. Blood pressure 132/106. On chest x-ray obtained in the ER suggestive of bilateral infiltrates concerning for call with pneumonia. COVID PCR was positive. On admissions patient had an ABG with a pH of 7.14 pCO2 of 20, pO2 of 59, bicarb of 7. Patient's blood sugar on admission was 424 on assessment today patient's blood work patient had a sodium 135 potassium 5.4 chloride 123 bicarb less than 5 and creatinine 0.73. D-dimer was elevated on admission patient 9 28 patient given 1 L of IV fluids followed by normal saline running at 200 mL/h. Patient was positive for acetone on admission. She will anion gap closed and was switched to D5NS. Insulin drip was continued during the night and was switched to patient's home medication this morning. One dose of remdesiver was ordered. Apparently around noon, A- team was called on the patient secondary to hypoxia patient's oxygen saturation dropped to the 70s and 80s on 100% nonrebreather. Patient was switched to BiPAP on 18/12 and is doing better o FiO2 of 80%. ABG was obtained and ph was 7. 14 pCO2 of 28 bicarb of 7 pO2 of 17. Patient noted to have uncompensated metabolic acidosis with compensated respiratory alkalosis. Stat dose of 1 amp bicarb was given and followed by sodium bicarbonate drip. Insulin drip restarted. Patient's initiated on dexamethasone 6 mg IV twice a day. Potassium phosphate ordered as phosphorus is low. Patient's repeat blood gases suggest a pH of 7.25, CO2 32 pO2 of 72 bicarb 14. I will not normal saline at 100 mL/h as patient's anion gap has increased. Patient given 1 dose of 2 mg of morphine with improvement in respiratory rate. One dose of Ativan 0.5 mg was given. Xanax 0.25 twice a day along with Ativan 0.5 IV every 6 hours ordered for the patient. Vitals were evaluated patient pulse 129 [id number]. She was moved to the ICU. Precedex drip was initiated. Lopressor was initiated at 25 twice a day. Metoprolol tartrate 5 mg IV every 6 hours. Systolic blood pressure more than 160. Started chest x-ray was obtained and suggest stable bilateral consolidation suggestive of COVID-19 pneumonia. 09/12 patient is seen in the ICU is currently mechanically ventilated and sedated on vent settings of respiratory rate 36, tidal volume 375 FiO2 80% PEEP of 18.. Vital signs reviewed patient had a temp of 100.4 pulse 150 respiratory rate 36 oxygen saturation 95% on 80% on fio2 .'s labs are reviewed which patient had a d-dimer 1.84 that is increased to 14.3. Arterial Blood gas suggest ph 7.35, CO2 40, po2 62, . Her BMP suggest a sodium 135 potassium 3.7 chloride 112 bicarb 21 creatinine 1.57 for calcitonin is 3.5 CRP is increased from 8.78.2 LDH is increased to 2614. Patient remains on Pneumovax, propofol drip. Lovenox increased to 50 subcu twice a day. Patient received 2 L of IV fluids. Continue IV fluids at 100 mL/h. Bicarb drip discontinued patient initiated on Zosyn 3.375 every 8 hours. Continue insulin drip at 4 units per hour. Patient is currently in prone positioning 09/13: Patient evaluated in the ICU remains on Ventilation continues to be sedated, in prone position. Vent settings are respiratory rate 36, tidal vital 375, FiO2 70% PEEP of 18. ABG shows pO2 of 82, PCO2 of 39, pH is 7.19. Latest labs show WBC 11.1, hemoglobin 13.2, d-dimer still pending, but yesterday was up to 14.3. Creatinine up to 3.4, BUN 24 sodium 137, potassium 4.0. Patient's urine output has been low, nephrology on consult. Bicarb drip increased to 100 miles an hour, receiving another liter of normal saline, she did have a ultrasound that showed unremarkable bilateral kidneys. Repeat chest x-ray showed bilateral lung infiltrates that are stable. Anion gap has closed, will start Lantus 10 units at at bedtime Novolog every 6 hours. 09/14: Patient is seen in the ICU, still currently mechanically ventilated and sedated. She continues in the prone position. Her oxygen quickly drops if she is not in prone. Patient's kidney function has worsened. Laboratory values show creatinine of 4.87, BUN 33, LDH 2191, C-reactive protein 2.7. ABG shows pH 7.32, pO2 of 60, pCO2 43. Patient is making almost no urine overnight. Nephrology is following patient continues on cefepime for urinary tract infection, culture is still pending. Vascular has been consulted for placement of temporary hemodialysis catheter for plans for dialysis. 09/15: Patient evaluated in the ICU, continues to be mechanically ventilated and sedated on assist control ventilation rate of 36, tidal volume 375, FiO2 100% and PEEP of 18. ABG today shows pO2 58, pCO2 of 45, and pH 7.35. She continues on tube feedings. Yesterday patient underwent ultrasound-guided right internal jugular non-tunneled hemodialysis catheter placement. Patient underwent hemodialysis treatment last night and plans have another hemodialysis treatment today. She continues to make almost no urine. She continues on cefepime for antibiotic coverage, and continues on Decadron and Lovenox. 09/16: Patient seen on follow-up remains in the ICU mechanically ventilated and sedated. She continues on assist control rate of 36, tidal volume 375, FiO2 100% and PEEP of 20. PEEP had to be increased due to patient had to be in supine position for dialysis, will go back to prone position once dialysis is complete. ABG shows pH 7.32, pCO2 49, PaO2 61. Laboratory values showed WBC 11.2, hemoglobin 11, sodium 134, creatinine 4.44, BUN 38. Urine culture shows no growth, blood cultures show no growth to date. Repeat chest x-ray shows bilateral pleural effusions, correlate for ARDS, pulmonary edema, diffuse pneumonia, findings are stable from last exam. Patient does not require any pressors, blood pressure 133/57, heart rate 78. 5/16: Patient was evaluated in the ICU today for follow-up. She continues to be intubated and on mechanical ventilation. Current vent settings are tidal volume 375, FiO2 100% and PEEP of 20. ABG shows pH 7.37, pCO2 40, pO2 102. She continues with intermittent prone positioning. Patient continues to have almost no urine output, maintained on dialysis. Patient received dialysis yesterday without complication. Laboratory values revealed WBC 10.3, hemoglobin 10.4, sodium 132, potassium 3.1, BUN 33, creatinine 4.29, LDH 1913, C-reactive protein 1.3. Urine and sputum cultures are negative, blood cultures show no growth to date. Consult placed to dietary to start TPN[ ] 09/18: She remains in the intensive care unit intubated and on mechanical ventilation with tidal volume 375, FiO2 60 and PEEP of 20. Patient is being prone to daily at approximately 16 hours per day. Pulmonary medicine has added in Dr. Zhang to do PEG tube and trach today. Patient is not on vasopressors. Repeat blood work reveals WBC 12.6, hemoglobin 9.8, platelet count 212. Sodium 133, potassium 3.2, chloride 102, CO2 21, BUN 35 and creatinine 4.12. Blood sugar 126. Patient underwent hemodialysis yesterday with removal of 2 L and is scheduled again today with goal of 2-3 L and is scheduled again tomorrow. 09/19: She is scheduled for hemodialysis today and is off fentanyl temporarily. Patient is status post trach and PEG tube yesterday. And she remains on mechanical ventilation. Pulse ox 93-95%. She has been afebrile, heart rate 64, respiratory rate 36, blood pressure 115/50. Fentanyl is off to improve blood pressure for hemodialysis which is scheduled for today. Contacted vascular surgery about permanent hemodialysis catheter. Repeat blood work reveals WBC 14.3, hemoglobin 9.6, platelet count 200. D-dimer 6.48. LDH 1686. C-reactive protein 1.1. BUN 34 creatinine 3.81. Sodium 130, potassium 3.5, chloride 101, CO2 18. Blood sugars running between 101 198. Plan is to wean off Pneumovax today. Patient remains on insulin drip. Repeat chest x-ray reveals bilateral multifocal confluent opacities consistent with COVID-19. Some improved aerati on periphery of the left lung and worsening opacities throughout the right lung. 09/20: She remains in the intensive care unit on mechanical ventilation. She has been afebrile, heart rate 65, respiratory rate 37, blood pressure 121/70, pulse ox 91-99%. Repeat blood work reveals WBC 14.5, hemoglobin 9.1, platelet count 216. D-dimer 6.13. Sodium 133, potassium 3.1, chloride 102, CO2 18, BUN 35 and creatinine 4.27. Blood sugars running between 128 and 143. LDH 1717. C- reactive protein 1.7. Patient remains on insulin drip which will be transitioned to NovoLog scale every 6 hours. Patient is scheduled for permanent hemodialysis catheter placement today with vascular surgery. Repeat chest x-ray reveals stable diffuse bilateral interstitial and airspace disease. Possible small right effusion. His work is following for transfer to residential care facility. Do not anticipate discharge until next week. 09/21: Patient is undergoing hemodialysis. She remains on mechanical ventilation with tidal volume 375, FiO2 down to 45 and PEEP was decreased to 15. Patient is continued on propofol, fentanyl drips. She is on tube feedings at goal. Patient was taken off insulin drip yesterday and on scale only but blood sugars are running in the 200s, Levemir scheduled at bedtime will be added. Other blood work reveals WBC 13.3, hemoglobin 8.7, platelet count 192. Sodium 137, potassium 3.6, chloride 107, CO2 18, BUN 34 and creatinine 4.21. Repeat chest x-ray is stable. 09/22: She remains in the intensive care on mechanical ventilation with tidal volume 375, FiO2 of 50 and PEEP of 10. Pulse ox is running 96%. She is afebrile, heart rate in the 50s, respiratory rate 36, blood pressure 100/64. Repeat blood work reveals WBC 16.5, hemoglobin 8.9, platelet count 213. Sodium 134, potassium 3.7, chloride 103, CO2 21, BUN 34 and creatinine 3.89. Blood sugars running in the 200s to 324. Levemir increased to 16 units at bedtime and continue NovoLog scale every 6 hours. Patient is on tube feedings at goal. She has a Haley catheter in with a scant amount of dark/brown urine. Fecal management system is in place. Repeat chest x-ray reveals diffuse bilateral airspace infiltrates persist unchanged. Patient is scheduled for hemodialysis tomorrow morning on Friday. 09/23: Patient remains on mechanical ventilation with tidal volume 3.75, FiO2 50 and PEEP of 10. lunchroom monitor sinus rhythm. She has no urine output. Fecal management system is in place. She is undergoing dialysis at this time with plan for removal of 2-1/2 L. She has been afebrile, heart rate in the 50s, respiratory rate 36, blood pressure 108/76 and pulse ox 89%. WBC 13.6, hemoglobin 9.1, platelet count 194. Sodium 136, potassium 3.0 and was replaced, chloride 106, CO2 21, BUN 49 creatinine 5.31. Blood sugars are running between 182 and this morning 194. Patient was still in the 200s and 300s. Levemir last evening was increased to 16 units. Patient remains on propofol and fentanyl dri ps. Lovenox was increased to 60 mg twice daily. 09/24: PEEP was increased today to 20, tidal volume is at 375 and FiO2 of 50%. Patient has been afebrile. She has been started on levo fed. Repeat chest x- ray reveals bilateral multifocal confluent opacities consistent with Covid 19 or ARDS redemonstrated. Nephrology will plan dialysis for tomorrow for 3 L. Patient remains on propofol fentanyl and Nimbex. WBC 12.5, hemoglobin 9.8, platelet count 161. D-dimer 13.3. Sodium 132, potassium 3.4, chloride 102, CO2 20, BUN 48 and creatinine 4.67. Blood sugars extremely elevated to 96-409. LDH 2217. 09/25: Patient remains in the intensive care unit on mechanical ventilation with tidal volume 375, FiO2 50 and PEEP of 20. Patient is afebrile, heart rate 61, respiratory rate 36, blood pressure 102/56, pulse ox 97%. Repeat blood work reveals WBC 9.3, hemoglobin 8.5 and platelet count 171. Sodium 130, potassium 3.7, chloride 100, CO2 20, BUN 61 creatinine 5.65. Blood sugars have been walt vated up to 455. Levemir increased to 20 units twice daily, NovoLog 5 units every 6 hours and continue NovoLog scale. Patient is scheduled for hemodialysis today. Repeat chest x-ray reveals bilateral multifocal and confluent opacities. Decadron and Lovenox dosing change by pulmonary. Patient is off norepinephrine. 09/26: Patient remains in the intensive care unit on mechanical ventilation with tidal volume 375, FiO2 50 and PEEP of 15. She has been afebrile, heart rate 91, blood pressure 114/68, pulse ox 99%. lunchroom monitor sinus rhythm. 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 Sodium 134, potassium 3.6, chloride 102, CO2 22, BUN 41 creatinine 4.21. Patient has improved blood sugars this morning running 150s and 160s. Diabetic medications were adjusted yesterday. Patient is awake and alert and interacting. Yesterday, patient had PICC line inserted by interventional radiology. Repeat chest x-ray reveals diffuse airspace infiltrates in both lung ann appear to progress slightly in the interval. 09/27: Patient remains in intensive care unit on mechanical ventilation with improvement of settings with tidal volume 375, FiO2 decreased to 40 and PEEP decreased to 10. Patient is on hemodialysis every other day and plan to remove 3 L today. Patient is more awake and alert. She is slow to respond but is able to follow simple commands. Blood sugars are running between 84 and 123. Repeat blood work reveals WBC 7.1, hemoglobin 8.1, platelets 152. Sodium 135, potassium 3.6, chloride 103, CO2 21, BUN 53 and creatinine 5.88. Repeat chest x -ray revealed cardiomegaly and pulmonary edema. Patient is on tube feedings:. Patient is not require vasopressors and is off sedation. Fecal management system remains in place for brown liquid stool. C. difficile was negative. 09/28: Patient remains on mechanical ventilation with tidal volume 375, FiO2 increased to 80 and PEEP increased to 18. Patient had a rough night was very anxious, no pain. Xanax 0.25 mg 3 times daily was added. There is concern for pulmonary embolism for which patient was started on heparin drip, she is unable to undergo CAT scan. Venous Doppler bilateral lower extremities was nondiagnostic due to extensive edema in obese patient but minimal imaging of the popliteal veins does show flow. Repeat echocardiogram has been ordered. Cefepime has also been ordered at 1 g IV piggyback every 24 hours as well as vancomycin, pharmacy dosing. Patient is back on fentanyl drip, propofol drip and norepinephrine. Blood sugars are elevated and insulin Levemir will be increased to 25 mg twice daily. Ferrlecit infusion has been ordered by nephrology for 4 days. Patient is undergoing hemodialysis today.temperature max 100.2, heart rate 134, respiratory rate 34, blood pressure 120/65, pulse ox 94%. lunchroom monitor is sinus tachycardia. Repeat blood work reveals WBC 16.9, hemoglobin 9.7, platelet count 216. D-dimer 8.81. Sodium 134, potassium 3.8, chloride 99, CO2 25, BUN 43 and creatinine 5.36. Blood sugars in the 200s. AST 40. 09/29 Patient had declined more last 48 hours require more sedation, patient is doing hemodialysis, respiratory failure is quite bit worse this time. Patient was inquired the pain is well back on fentanyl drip. Her vent set up with PEEP is limited but higher. No new finding on culture and her chest x-ray continues shows diffuse infiltrate persistent although there is a moderate interval improvement. REVIEW OF SYSTEMS Unable to obtain due to mechanical ventilation. PHYSICAL EXAMINATION Gen: This is is a 35-year-old black female, patient is intubated and on assembler mechanical ordnance al ventilation, appears to be comfortable. HEENT: Head is atraumatic, normocephalic. Pupils equal, round. Sclerae is anicteric. Tracheostomy tube in place. NECK: Supple. No JVD. No lymphadenopathy. No thyromegaly. LUNGS: Scattered bilateral rhonchi. No intercostal retractions. HEART: Regular rate and rhythm. No murmur. ABDOMEN: Soft. Bowel sounds are present. No masses. No tenderness. PEG tube in place, area clean and dry. Fecal management system in place with brown stool. EXTREMITIES: No pedal edema. No calf tenderness. Dorsalis pedis +2 bilaterally. NEUROLOGICAL: Patient is sedated. ASSESSMENT AND PLAN 1. Acute hypoxic respiratory failure secondary to Covid 19 pneumonia and possible bacterial pneumonia. Patient was intubated on September 11. She is status post 1 dose of Remdesivir and 1 dose of Tocilizumab. Continue Ventolin inhaler 4 times daily, Symbicort twice daily, Decadron 4 mg IV daily, Lovenox 30 mg subcu daily, supplements. Status post PEG tube and trach. Patient started on cefepime and vancomycin. still seen infectious disease, and pulmonary, she had declined more in the last 2. Acute kidney injury secondary to ATN secondary to Covid 19 and DKA. Patient continued on hemodialysis. Permanent dialysis catheter placed. patient is doing dialysis almost on daily basis. 3. Metabolic encephalopathy secondary to Covid 19 and DKA.significant declining condition. 4. Sepsis and septic shock secondary to Covid 19 pneumonia. Continue as in #1. 5. Acute metabolic acidosis secondary to acute DKA, Covid 19 and acute kidney injury. 6. Diabetes mellitus type 2 uncontrolled with A1c 13.6. continue intense diabetic management and insulin. 7. electrolyte imbalance: Post correction of hypophosphatemia 8. hypertension: Blood pressure slightly bit low at this point patient remain on metoprolol IV and per PEG tube. 9. Sinus tachycardia secondary to sepsis, volume deficiency.Continue Lopressor 25 mg twice daily. 10. type 2 diabetes on insulin with presentation with diabetic ketoacidosis secondary to COVID-19 altercation, patient remain on Levemir 20 units twice a day along with schedule NovoLog 8 units before meals meals and keep titrating the dose. 11. Possible acute gram-negative pneumonia versus MRSA pneumonia. Patient has been started on cefepime and vancomycin. 12. Morbid obesity with BMI of 53. 13. DVT prophylaxis. Lovenox. 14. GI prophylaxis. Protonix 40 mg IV push daily. CODE STATUS: Full code Prognosis guarded. Objective - Vital Signs Vital signs: Vital Signs Temp 98.6 F 09/29/20 16:00 Pulse 79 09/29/20 19:00 Resp 28 H 09/29/20 19:00 BP 111/55 09/29/20 19:00 Pulse Ox 99 09/29/20 19:00 Intake & Output 09/29/20 09/29/20 09/30/20 06:59 18:59 06:59 Intake Total 4728.213 5784.842 33 Output Total 5 3010 0 Balance 1588.649 -606.158 33 Weight 119.5 kg Intake: IV 276 276 23 0.9 Normal Saline @ KVO 240 240 20 Pressure Bag 36 36 3 Intake, IV Titration 3164.144 8573.842 Amount Cefepime 1 gm In Sodium 50 Chloride 0.9% 50 ml @ 12. 5 mls/hr IVPB Q24H [facility] Rx #:[id number] Cisatracurium 200 mg In 154.32 172.8 Sodium Chloride 0.9% 180 ml @ 1 MCG/KG/MIN 7.2 mls /hr IV .Q24H [facility] Rx#: [id number] Heparin Sod,Pork in 0.45% 250.0 133.239 NaCl 25,000 unit In 0.45 % NaCl 1 250ml.bag @ 18 UNITS/KG/HR 21.6 mls/hr IV .[id number] [facility] Rx#: [id number] Norepinephrine 8 mg In 67.609 226.163 Sodium Chloride 0.9% 250 ml @ 0.05 MCG/KG/MIN 11. 61 mls/hr IV .[id number] [facility] Rx#:[id number] Sodium Ferric Gluconat- 100 Sucrose 125 mg In Sodium Chloride 0.9% 100 ml @ 100 mls/hr IVPB DAILY [facility] Rx#:[id number] Vancomycin 1,750 mg In 500 Sodium Chloride 0.9% 500 ml 500 ml @ 167 mls/hr IVPB ONCE ONE Rx#: [id number] fentaNYL (PF) 2,500 mcg 242 241.2 In Sodium Chloride 0.9% 200 ml @ Per Protocol IV .Q0M [facility] Rx#:[id number] propofoL 1,000 mg In 383.72 464.44 Empty Bag 1 bag @ Per Protocol IV .Q0M [facility] Rx#: [id number] Tube Feeding 130 120 10 Other 90 120 Output: Urine 5 10 0 Hemodialysis 3000 Other: Voiding Method Indwelling Catheter Indwelling Catheter ABP, PAP, CO, CI - Last Documented Arterial Blood Pressure 110/54 - Labs CBC & Chem 7: 09/29/20 04:55 09/29/20 04:55 Labs: Abnormal Lab Results - Last 24 Hours (Table) 09/28/20 09/28/20 09/29/20 Range/Units 20:00 23:45 02:00 RBC (3.80-5.40) m/uL Hgb (11.4-16.0) gm/dL Hct (34.0-46.0) % Neutrophils # (1.3-7.7) k/uL APTT 65.9 H 66.8 H (22.0-30.0) sec D-Dimer (<0.60) mg/L FEU ABG pH (7.35-7.45) ABG pCO2 (35-45) mmHg ABG pO2 (83-108) mmHg ABG Total CO2 (19-24) mmol/L ABG O2 Saturation (94-97) % Sodium (137-145) mmol/L BUN (7-17) mg/dL Creatinine (0.52-1.04) mg/dL Glucose (74-99) mg/dL POC Glucose (mg/dL) 207 H (75-99) mg/dL Total Protein (6.3-8.2) g/dL Albumin (3.5-5.0) g/dL 09/29/20 09/29/20 09/29/20 Range/Units 04:55 04:55 05:20 RBC 2.94 L (3.80-5.40) m/uL Hgb 8.2 L D (11.4-16.0) gm/dL Hct 25.2 L (34.0-46.0) % Neutrophils # 8.4 H (1.3-7.7) k/uL APTT (22.0-30.0) sec D-Dimer (<0.60) mg/L FEU ABG pH 7.28 L (7.35-7.45) ABG pCO2 50 H (35-45) mmHg ABG pO2 (83-108) mmHg ABG Total CO2 25 H (19-24) mmol/L ABG O2 Saturation (94-97) % Sodium 133 L (137-145) mmol/L BUN 37 H (7-17) mg/dL Creatinine 4.50 H (0.52-1.04) mg/dL Glucose 143 H (74-99) mg/dL POC Glucose (mg/dL) (75-99) mg/dL Total Protein 5.9 L (6.3-8.2) g/dL Albumin 2.8 L (3.5-5.0) g/dL 09/29/20 09/29/20 09/29/20 Range/Units 06:11 08:20 11:16 RBC (3.80-5.40) m/uL Hgb (11.4-16.0) gm/dL Hct (34.0-46.0) % Neutrophils # (1.3-7.7) k/uL APTT 49.5 H (22.0-30.0) sec D-Dimer (<0.60) mg/L FEU ABG pH (7.35-7.45) ABG pCO2 (35-45) mmHg ABG pO2 (83-108) mmHg ABG Total CO2 (19-24) mmol/L ABG O2 Saturation (94-97) % Sodium (137-145) mmol/L BUN (7-17) mg/dL Creatinine (0.52-1.04) mg/dL Glucose (74-99) mg/dL POC Glucose (mg/dL) 155 H 130 H (75-99) mg/dL Total Protein (6.3-8.2) g/dL Albumin (3.5-5.0) g/dL 09/29/20 09/29/20 09/29/20 Range/Units 11:35 11:38 18:22 RBC (3.80-5.40) m/uL Hgb (11.4-16.0) gm/dL Hct (34.0-46.0) % Neutrophils # (1.3-7.7) k/uL APTT (22.0-30.0) sec D-Dimer 2.03 H (<0.60) mg/L FEU ABG pH 7.30 L (7.35-7.45) ABG pCO2 52 H (35-45) mmHg ABG pO2 116 H (83-108) mmHg ABG Total CO2 27 H (19-24) mmol/L ABG O2 Saturation 98.7 H (94-97) % Sodium (137-145) mmol/L BUN (7-17) mg/dL Creatinine (0.52-1.04) mg/dL Glucose (74-99) mg/dL POC Glucose (mg/dL) 142 H (75-99) mg/dL Total Protein (6.3-8.2) g/dL Albumin (3.5-5.0) g/dL Microbiology - Last 24 Hours (Table) 09/28/20 08:54 Urine Culture - Preliminary Urine,Voided Yeast species 09/28/20 09:45 Blood Culture - Preliminary Blood No Growth after 24 hours 09/28/20 09:45 Blood Culture - Preliminary Blood No Growth after 24 hours 09/29/20 00:06 Sputum Culture - Preliminary Sputum
[2020-09-30 00:09] LABS: Glucose,Whole Blood 107 mg/dL (75-99)
[2020-09-30] MEDS: INSULIN ASPART (NovoLOG) 100 UNIT/ML VIAL SQ SCH ×10 (00:59→23:35)
[2020-09-30] MEDS: fentaNYL (PF) 2,500 MCG in SODIUM CHLORIDE 0.9% 200 ML IV SCH ×2 (01:54→11:37)
[2020-09-30] MEDS: CISATRACURIUM 200 MG in SODIUM CHLORIDE 0.9% 180 ML IV SCH (03:28)
[2020-09-30] MEDS: ARTIFICIAL TEARS OINTMENT 3.5 GM TUBE BOTH EYES SCH ×7 (03:29→23:34)
[2020-09-30 03:57] LABS: Basophils % (A) 0 %; Eosinophils # (A) 0.3 k/uL (0-0.7); Eosinophils % (A) 5 %; HCT 24.5 % (34.0-46.0); HGB 7.9 gm/dL (11.4-16.0); Hypochromasia Slight; Lymphocytes # (A) 0.8 k/uL (1.0-4.8); Lymphocytes % (A) 11 %; MCH 27.9 pg (25.0-35.0); MCHC 32.3 g/dL (31.0-37.0); MCV 86.2 fL (80.0-100.0); Mean Platelet Volume 8.6; Monocytes # (A) 0.5 k/uL (0-1.0); Monocytes % (A) 6 %; Neutrophils # (A) 5.8 k/uL (1.3-7.7); Neutrophils % (A) 76 %; Platelet Count 174 k/uL (150-450); Poikilocytosis Slight; RBC 2.84 m/uL (3.80-5.40); RDW 15.6 % (11.5-15.5); WBC 7.6 k/uL (3.8-10.6)
[2020-09-30 04:09] LABS: Albumin 2.4 g/dL (3.5-5.0); Calcium 8.9 mg/dL (8.4-10.2); Total Bilirubin 0.1 mg/dL (0.2-1.3); Total Protein 5.1 g/dL (6.3-8.2)
[2020-09-30 04:26] LABS: Vancomycin,Random 30.6 ug/mL
[2020-09-30 05:14] LABS: Potassium 4.4 mmol/L (3.5-5.1)
[2020-09-30 05:16] LABS: ABG HCO3 23 mmol/L (21-25); ABG Oxygen Saturation 87.6 % (94-97); ABG PCO2 49 mmHg (35-45); ABG PH 7.28 (7.35-7.45); ABG PO2 60 mmHg (83-108); ABG TCO2 24 mmol/L (19-24); Allen Test Performed? Yes
[2020-09-30 06:36] LABS: Glucose,Whole Blood 131 mg/dL (75-99)
[2020-09-30] MEDS: INSULIN DETEMIR (LEVEMIR) 100 UNIT/ML SYR SQ SCH ×2 (06:43→21:40)
[2020-09-30] MEDS: SEVELAMER 800 MG TAB PO SCH ×3 (06:43→18:09)
[2020-09-30] MEDS: SYMBICORT 160-4.5 MCG INHALER INHALATION SCH ×2 (07:26→20:47)
[2020-09-30] MEDS: ALBUTEROL HFA INHALER INHALATION SCH ×4 (07:26→20:47)
--- NOTE | 2020-09-30 07:43 | XR ---
EXAMINATION TYPE: XR chest 1V portable DATE OF EXAM: 09/30/2020 COMPARISON: Chest x-ray 09/29/2020 HISTORY: Shortness of breath TECHNIQUE: Single frontal view of the chest is obtained. FINDINGS: Tracheostomy tube, right-sided PICC line, right jugular central venous catheter are stable . No evident pneumothorax. Bilateral airspace disease is present, the hemidiaphragms remain obscured. Heart is stable. IMPRESSION: Correlate for pneumonia, edema, ARDS
--- NOTE | 2020-09-30 09:26 | P.PN ---
Subjective Progress Note Date: 09/30/20 On 09/25/2020, the patient is being seen in follow-up in the intensive care unit. For now, the patient remains in respiratory failure, remains intubated on a mechanical ventilator. She is post, respiratory failure secondary to COVID-19 related to pneumonia with secondary ARDS. The patient remained on assist control mode at the rate of 36 and a tidal volume of 375 and FiO2 of 50% with a PEEP of 20. The peak air pressure was 43. The static pressure was 37. The blood gases from today showed a pH of 7.33 with a pCO2 of 38 and pO2 of 95. Chest x-ray still consistent with diffuse bilateral pulmonary infiltrates with bilateral multifocal and confluent opacities consistent with COVID-19 related pneumonia/ARDS. The patient has been on steroids or along the patient is still on Decadron 6 mg IV every 24 hours. The patient is also on Lovenox 60 mg subcu every 12 hours. She is requiring norepinephrine infusion low-dose of 0.01 mcg/kg per minute. She remains in renal failure. Creatinine today is at 5.65 with a BUN of 61. The net fluid balance is been +38 mL over the past 24 hours. The patient's last hemodialysis session was on 09/23/2020 with a total of 2.5 L of fluids was removed and the patient is scheduled to have another session of hemodialysis today. The patient this morning is sedated with propofol running at 50 mcg/kg per minute. Nevertheless, despite that, she is arousable and she opens her eyes spontaneously. Doesn't follow commands consistently. Her white cell count is at 9.3 with a hemoglobin of 8.5 blood sugars remain elevated and the patient is on Levemir insulin 20 units twice a day and the patient is also started on lower log 5 units every 6 hours [id number] plus a signs good coverage. The patient continues to receive enteral feeds and the patient is currently on vital high protein at the rate of 45 mL an hour. IV fluids with normal saline at the rate of 20 mL an hour. The patient is afebrile. No other significant issues overnight for now. 5 2020, ration remains on a mechanical ventilator. There is a case of COVID-19 related pneumonia/ARDS. This morning, the patient has been on assist-control at the rate of 28 with a tidal volume of 375 and FiO2 of 50% and a PEEP of 15. The peak air pressure is 37 and the plateau airway pressure is 31. The blood gas showed a pH of 7.41 with a pCO2 of 38 and pO2 of 73. Chest x-ray is showing the pulmonary infiltrates. The patient has a hemodialysis catheter in her right IJ. The pulmonary infiltrates are essentially the same probably slightly improved compared to yesterday. Note that the patient also has dialysis-dependent renal failure. She is being dialyzed periodically. Her last session of hemodialysis was yesterday where a total of 3.3 of fluid was removed without any major diffi culties or hemodynamic instability. The patient otherwise is awake. She is off sedation. She is watching television. She is following simple commands. Her blood work shows a white cell count of 8.5 with a stable hemoglobin of 9. Platelets is at 169. D-dimer was lower at 4.57. Albumin is at 41 with a creatinine of 4.2. No electrolyte abnormalities or disturbances at this point in time. She is receiving enteral feeding for nutritional support via PEG tube. She is receiving his vital high protein at the rate of 31 mL an hour. She is producing adequate stool which is in the form of the diarrhea and the patient has a fecal management system in place. Output is in the order of 200-300 mL on a daily basis. She has been on Lovenox 40 mg subcu on a daily basis. The patient is also on Decadron 4 mg IV every 24 hours. She is on no antibiotics for now. IV fluids are running at 20 mL an hour of normal saline. She is afebrile. She is hemodynamically stable. No other significant events over the past 24 hours. She is been off propofol for the past 3 hours. 09/27/2020, the patient is awake off propofol. She is recovering from COVID-19 related pneumonia/ARDS. Responsive and the patient is awake and alert and she is following commands. Her chest x-ray from today is remaining unchanged with diffuse bilateral pulmonary infiltrates. Tracheostomy tube is in a good location. Meanwhile, the patient remains on a mechanical ventilator essentially on the same setting which includes a rate of 28 with a tidal volume of 375 and FiO2 of 40% and PEEP has been drop down to 10 and the blood gas shows a pH of 7.41 with a pCO2 of 35 and pO2 of 74. She is resting comfortably. Respiratory rate currently is at 34 and the patient is obviously less tachypneic compared to yesterday. She is undergoing periodic dialysis. Her last dialysis was on 09/25/2020 and the patient is undergoing dialysis today. The patient remains hemodynamically stable. She is moving all 4 extremities. She has generalized global weakness which is quite expected because of prolonged respiratory failure and prolonged ICU stay. She is receiving enteral feeding for nutritional support and she is on vital high protein at the rate of 45 mL an hour. Urine output is in the order of 5 mL an hour. Her electrolytes show a sodium of 135, potassium of 3.6, BUN is up 53 with a creatinine of 5.8. The patient has a white cell count 7.1 and hemoglobin of 8.1. The patient otherwise is hemodynamically stable. The patient is off sedation. The patient is able to move her extremities and there is no focal neurological deficit at this point in time. She is doing slow an ongoing progress for now. She is still having some loose liquidy diarrhea. Stool for C. diff has been negative. 09/28/2020, the patient has decompensated. As of midnight yesterday, the patient stated that she was not feeling well. She clearly communicated this with the nurses. Subsequently, she became more tachypneic and short of breath while on a mechanical ventilator and she began progressively hypoxic more confused and more restless and agitated. At that point, I initially started on Precedex. I increased the PEEP knowing that the patient was having ongoing hypoxemia while on the mechanical ventilator. Nevertheless, the patient was not responding and she continued to be having worsening and hypoxemia. At that p oint, she was started back comfortable for which is currently running at 75 mcg/kg per minute. She is fully sedated for now. She is back on a mechanical ventilator in the PEEP is currently up to 18 with a tidal volume of 375 and the rate of 28 and FiO2 of 100%. Note that the blood gases earlier prior to this change showed a pH of 7.29 with a pCO2 of 50 and pO2 of 37 and this was done while on a FiO2 of 90% with a PEEP of 6. The chest x-ray showing diffuse bilateral airspace disease system with ARDS. At that point, a workup was initiated regarding her hypoxemia. Doppler of the lower extremity was done and the results were negative. Noted the patient was already on Lovenox. Nevertheless, due to my concern of pulmonary embolism, I put the patient IV heparin. The d-dimer was repeated and the level came back at 8.8 with a slightly higher compared to yesterday. I also give the patient, addition of antibiotics including cefepime and vancomycin. Cultures are still pending. White cell count is up to 16.9. Pneumonia is considered although I'm not absolutely certain about this diagnosis. Meanwhile, the patient was asked to undergo another session of hemodialysis. Currently she is running a dialysis right now with an ultrafiltration of around goal. Echocardiogram was also ord ered. Her current pulse ox 97%. The patient exercises monitoring elevation of PEEP and sedation. The patient will have a follow-up blood gas done post dialysis the necessity ventilator changes will be done. Haley cath is in place. Urine output is minimal in the order of 20 disease over the past 12 hours. Note that her weight has been stable and there is no signs of any major volume change. She remains overloaded in terms of fluid in general. She has a PEG tube. Enterofeeding is still being continued with vital high protein at the rate of 51 mL an hour. Rest of the electrolytes are normal. Serum bicarb is 25. BUN is at 43 with a creatinine of 5.36. LFTs are normal. 09/29/2020, the patient remains sedated and paralyzed. I had to paralyze her yesterday as the patient was quite asynchronous a mechanical ventilator and she was peak pressuring significantly. As such, she is maintained on a combination of propofol which is running at 60 mcg/kg per minute and the patient is also o at 2 mcg/kg per minute and fentanyl at 2 mcg/kg/h. She is quite successful mechanical ventilator. Nevertheless, earlier this morning and overnight the pressures both at peak and static have been quite elevated with a peak airway pressure of 54 anesthetic at a pressure of 49. Based on that, and the morning evaluation, I dropped his tidal volume down to 350 and I also doubt the PEEP down to 15. Prior to that, the patient was on a PEEP of 18 with an FiO2 of 60% and a tidal volume of 375 with a rate of 28 and her blood. This was showing a pH of 7.28 with a pCO2 of 50 and pO2 of 86 to chest x-ray shows improvement in the left lung consolidation. The patient has a tracheostomy tube in place. Note that the patient is undergoing hemodialysis at this point in time with a goal of 3.3 L of ultrafiltration. Hemodynamically she is requiring pressors and she is currently on norepinephrine infusion at 0.09 macrovascular kilogram per minute. We are the process of weaning the pressors down as the patient's blood pressure could handle being weaned off the pressors. Meanwhile, she continues to receive enteral feeding for nutritional support with vital AF, at 10 mL an hour. She is able to tolerate the enteral feeding. In terms of her blood work, her white cell count that 0.6 with a hemoglobin of 8.2. The BUN is a 37 with a creatinine of 4.7 the sodium level is 133. Doppler of the lower extremity was negative and the echocardiogram showed a preserved LV function with an ejection fraction of 55-60%. There was severe concentric LVH. Mild pulmonary hypertension with a PA pressure of 41 mmHg. No valvular abnormalities. No RV dysfunction. Sputum culture has been negative. Urine cultures been negative. Blood culture has been also negative. We have her on IV cefepime and vancomycin as broad-spectrum antibiotic coverage. 99 2020, the patient remains paralyzed and sedated. This morning, she is on a combination of poor before running at 3 mcg/kg per minute and she is also on fentanyl at 2 mcg/kg/h and the patient is also Nimbex at 2 mcg/kg per minute. The patient compatible to yesterday. She remains on a mechanical ventilator. She is an assist-control mode at the rate of 28 with a tidal volume of 350 and FiO2 of 50% with a PEEP of 13. Peak airway pressure is 41, static pressures 37. Chest x-ray showing diffuse breath and pulmonary infiltrates consistent with ARDS. Tracheostomy tube is in place. No evidence of leak around the tracheostomy tube. The blood gases from today shows a pH of 7.28 with a pCO2 of 49. CO2 was 60. Overall hemodynamics is essentially stable with some requirements of norepinephrine infusion and norepinephrine is currently running at 0.02 macrovascular kilogram per minute and this is needed while the patient is undergoing daily dialysis with ultrafiltration. In fact, the patient is in the process of undergoing dialysis this morning with a goal of 3.3 L of ultrafiltration. She has been handling dialysis without any major difficulties. No fever. Her cultures have been negative. She was covered with broad- spectrum antibiotics and I think it's reasonable to these correlate with antibiotics and stop. She has a preserved LV function on the echocardiogram. Cultures of been all negative. She is receiving enteral feeding for nutritional support and she is able to tolerate that without any major difficulties. No other significant events overnight. Cardiac rhythm is sinus. Her labs show a white cell count of 7.6 with a stable hemoglobin of 7.9. Her d-dimer is at 3.6. Rest of the blood work and electrolytes shows a creatinine of 3.75 and a sodium level of 134. Total protein is at 5.1 with albumin of 2.6. Vancomycin random was 30.6. Objective - Vital Signs Vital signs: Vital Signs Temp 99.5 F 09/30/20 04:00 Pulse 89 09/30/20 07:00 Resp 28 H 09/30/20 07:00 BP 104/53 09/30/20 07:00 Pulse Ox 93 L 09/30/20 07:00 Intake & Output 09/29/20 09/30/20 09/30/20 18:59 06:59 18:59 Intake Total 2403.842 1176.072 123 Output Total 3010 17 0 Balance -526.811 3472.072 123 Weight 123.1 kg Intake: IV 276 276 23 0.9 Normal Saline @ KVO 240 240 20 Pressure Bag 36 36 3 Intake, IV Titration 1887.842 760.072 100 Amount Cefepime 1 gm In Sodium 50 Chloride 0.9% 50 ml @ 12. 5 mls/hr IVPB Q24H [facility] Rx #:[id number] Cisatracurium 200 mg In 172.8 187.2 Sodium Chloride 0.9% 180 ml @ 1 MCG/KG/MIN 7.2 mls /hr IV .Q24H [facility] Rx#: [id number] Heparin Sod,Pork in 0.45% 133.239 NaCl 25,000 unit In 0.45 % NaCl 1 250ml.bag @ 18 UNITS/KG/HR 21.6 mls/hr IV .[id number] [facility] Rx#: [id number] Norepinephrine 8 mg In 226.163 22.872 Sodium Chloride 0.9% 250 ml @ 0.05 MCG/KG/MIN 11. 61 mls/hr IV .[id number] [facility] Rx#:[id number] Sodium Ferric Gluconat- 100 Sucrose 125 mg In Sodium Chloride 0.9% 100 ml @ 100 mls/hr IVPB DAILY [facility] Rx#:[id number] Vancomycin 1,750 mg In 500 Sodium Chloride 0.9% 500 ml 500 ml @ 167 mls/hr IVPB ONCE ONE Rx#: [id number] fentaNYL (PF) 2,500 mcg 241.2 250 In Sodium Chloride 0.9% 200 ml @ Per Protocol IV .Q0M [facility] Rx#:[id number] propofoL 1,000 mg In 464.44 300 100 Empty Bag 1 bag @ Per Protocol IV .Q0M [facility] Rx#: [id number] Tube Feeding 120 80 Other 120 60 Output: Urine 10 17 0 Hemodialysis 3000 Other: Voiding Method Indwelling Catheter Indwelling Catheter ABP, PAP, CO, CI - Last Documented Arterial Blood Pressure 107/51 - Exam GENERAL EXAM: Sedated, 35-year-old female patient, on assist control mode of ventilation , sedated, comfortable sedated and paralyzed HEAD: Normocephalic/atraumatic. EYES: Normal reaction of pupils, equal size. Conjunctiva pink, sclera white. NOSE: Clear with pink turbinates. THROAT: No erythema or exudates. NECK: Right internal jugular hemodialysis catheter placed. Tracheostomy tube secured in place. The patient has Bivona #8. No masses, no JVD, no thyroid enlargement, no adenopathy. CHEST: No chest wall deformity. Symmetrical expansion. LUNGS: Equal air entry with bilateral crackles CVS: Regular rate and rhythm, normal S1 and S2, no gallops, no murmurs, no rubs ABDOMEN: PEG tube exit site clean and dry. No hepatosplenomegaly, normal bowel sounds, no guarding or rigidity. EXTREMITIES: No clubbing, no edema, no cyanosis, 2+ pulses and upper and lower extremities. MUSCULOSKELETAL: Muscle strength and tone normal. SPINE: No scoliosis or deformity SKIN: No rashes CENTRAL NERVOUS SYSTEM: Patient is sedated with propofol internal and the patient is also paralyzed with Nimbex. n - Labs CBC & Chem 7: 09/30/20 03:30 09/30/20 03:30 Labs: Abnormal Lab Results - Last 24 Hours (Table) 09/29/20 09/29/20 09/29/20 Range/Units 11:16 11:35 11:38 RBC (3.80-5.40) m/uL Hgb (11.4-16.0) gm/dL Hct (34.0-46.0) % RDW (11.5-15.5) % Lymphocytes # (1.0-4.8) k/uL D-Dimer 2.03 H (<0.60) mg/L FEU ABG pH 7.30 L (7.35-7.45) ABG pCO2 52 H (35-45) mmHg ABG pO2 116 H (83-108) mmHg ABG Total CO2 27 H (19-24) mmol/L ABG O2 Saturation 98.7 H (94-97) % Sodium (137-145) mmol/L BUN (7-17) mg/dL Creatinine (0.52-1.04) mg/dL Glucose (74-99) mg/dL POC Glucose (mg/dL) 130 H (75-99) mg/dL Total Bilirubin (0.2-1.3) mg/dL Total Protein (6.3-8.2) g/dL Albumin (3.5-5.0) g/dL 09/29/20 09/30/20 09/30/20 Range/Units 18:22 00:08 03:30 RBC (3.80-5.40) m/uL Hgb (11.4-16.0) gm/dL Hct (34.0-46.0) % RDW (11.5-15.5) % Lymphocytes # (1.0-4.8) k/uL D-Dimer (<0.60) mg/L FEU ABG pH (7.35-7.45) ABG pCO2 (35-45) mmHg ABG pO2 (83-108) mmHg ABG Total CO2 (19-24) mmol/L ABG O2 Saturation (94-97) % Sodium 134 L (137-145) mmol/L BUN 31 H (7-17) mg/dL Creatinine 3.75 H (0.52-1.04) mg/dL Glucose 107 H (74-99) mg/dL POC Glucose (mg/dL) 142 H 107 H (75-99) mg/dL Total Bilirubin 0.1 L (0.2-1.3) mg/dL Total Protein 5.1 L (6.3-8.2) g/dL Albumin 2.4 L (3.5-5.0) g/dL 09/30/20 09/30/20 09/30/20 Range/Units 03:30 03:30 05:10 RBC 2.84 L (3.80-5.40) m/uL Hgb 7.9 L (11.4-16.0) gm/dL Hct 24.5 L (34.0-46.0) % RDW 15.6 H (11.5-15.5) % Lymphocytes # 0.8 L (1.0-4.8) k/uL D-Dimer 3.60 H (<0.60) mg/L FEU ABG pH 7.28 L (7.35-7.45) ABG pCO2 49 H (35-45) mmHg ABG pO2 60 L (83-108) mmHg ABG Total CO2 (19-24) mmol/L ABG O2 Saturation 87.6 L (94-97) % Sodium (137-145) mmol/L BUN (7-17) mg/dL Creatinine (0.52-1.04) mg/dL Glucose (74-99) mg/dL POC Glucose (mg/dL) (75-99) mg/dL Total Bilirubin (0.2-1.3) mg/dL Total Protein (6.3-8.2) g/dL Albumin (3.5-5.0) g/dL 09/30/20 Range/Units 06:35 RBC (3.80-5.40) m/uL Hgb (11.4-16.0) gm/dL Hct (34.0-46.0) % RDW (11.5-15.5) % Lymphocytes # (1.0-4.8) k/uL D-Dimer (<0.60) mg/L FEU ABG pH (7.35-7.45) ABG pCO2 (35-45) mmHg ABG pO2 (83-108) mmHg ABG Total CO2 (19-24) mmol/L ABG O2 Saturation (94-97) % Sodium (137-145) mmol/L BUN (7-17) mg/dL Creatinine (0.52-1.04) mg/dL Glucose (74-99) mg/dL POC Glucose (mg/dL) 131 H (75-99) mg/dL Total Bilirubin (0.2-1.3) mg/dL Total Protein (6.3-8.2) g/dL Albumin (3.5-5.0) g/dL Microbiology - Last 24 Hours (Table) 09/29/20 00:06 Gram Stain - Preliminary Sputum Sputum Culture - Preliminary 09/28/20 08:54 Urine Culture - Final Urine,Voided Riri albicans 09/28/20 09:45 Blood Culture - Preliminary Blood No Growth after 24 hours 09/28/20 09:45 Blood Culture - Preliminary Blood No Growth after 24 hours Assessment and Plan Plan: 1 Acute hypoxic respiratory failure secondary to COVID-19 pneumonia/ARDS, transferred to the intensive care unit on 09/11/2020 and intubated and placed on mechanical ventilator on 09/11/2020. Patient received 1 dose of Remdesivir on 09/11/2020, however based on her quick progression of her hypoxic respiratory failure she received Tocilizumab 800 mg on 09/11/2020. Tracheostomy and PEG tube placed on 09/18/2020. His morning, the patient is sedated and paralyzed. The patient is using a low tidal volume strategy as the patient's peak and static pressures are quite elevated and this is typical of ARDS post Covid. The patient is currently on a tidal volume of 350 with an FiO2 of 50% PEEP is at 13, peak and static pressures remain elevated. 2 Acute kidney injury related to ATN, nephrology has been consulted, ultrasound of the kidneys showed no evidence of hydronephrosis. Patient was initiated on hemodialysis on 09/14/2020. Permacath placed 09/20/2020. Patient is undergoing daily dialysis. Another session of hemodialysis being done this morning 3 Acute diabetic ketoacidosis, resolved sugar is still poorly controlled, the patient is currently on long-acting insulin in the patient's Levemir 25 units twice a day along with NovoLog 5 units 4 times a day. Blood sugars are still somewhat elevated. 4 Acute metabolic acidosis related to acute DKA, and acute kidney injury. Recovered . 5 Increased d-dimer, related to COVID-19 pneumonia, currently on IV heparin 6 Possible sepsis with increased pro-calcitonin suggesting presence of bacterial infection, cultures have been sent and all negative 7 Diabetes mellitus type 2 8 Morbid obesity with BMI 45.3 kg/m 9 Nonsmoker Plan Dropped the PEEP to 11 and keep the tidal volume of 350. FiO2 of 50%. Check blood gases postdialysis Complete dialysis. There is a goal of 3.3 L of ultrafiltration. Continue Decadron 4 mg IV every 24 hours Lovenox 30 mg subcu on a daily basis Stop cefepime and vancomycin echocardiogram also noted that there are essentially showing some mild pulmonary hypertension. Preserved LV function. Doppler of the lower extremities in a negative D-dimer has been noted Continue Levemir insulin 25 units twice a day and keep the NovoLog 5 units every 6 hours along with a sliding scale coverage. We'll increase the maintenance Levemir dose if needed depending on her blood sugar control. Stool for C Diff negative Condition is critical we'll continue to follow make further recommendations based on her progress. This is a critically care evaluation that was on a more than 30 minutes. Time with Patient: Greater than 30
--- NOTE | 2020-09-30 10:41 | P.PN ---
Progress Note - Text Progress Note Date: 09/30/20 Patient remains on the ventilator. Tolerating tube feeds. No discomfort. Tracheostomy and PEG tube site without evidence of bleeding or infection Continue pulmonary optimization. Continue tube feeds at goal.
[2020-09-30 10:58] LABS: ABG Base Excess -3.4 mmol/L; ABG HCO3 23 mmol/L (21-25); ABG PCO2 48 mmHg (35-45); ABG PO2 61 mmHg (83-108); ABG TCO2 25 mmol/L (19-24)
[2020-09-30] MEDS: SODIUM FERRIC GLUCONAT-SUCROSE 125 MG in SODIUM CHLORIDE 0.9% 100 ML IVPB SCH (10:58)
[2020-09-30] MEDS: ZINC SULFATE 220 MG CAP PO SCH (10:58)
[2020-09-30] MEDS: PANTOPRAZOLE 40 MG/10 ML VIAL IVP SCH (10:58)
[2020-09-30] MEDS: DEXAMETHASONE SOD PHOSPHATE 4 MG/ML 1 ML VIAL IV SCH (10:58)
[2020-09-30 10:59] LABS: Allen Test Performed? no
[2020-09-30] MEDS: METOPROLOL TARTRATE 25 MG TAB PO SCH ×2 (10:59→21:40)
[2020-09-30] MEDS: CHOLECALCIFEROL 25 MCG (1000 IU) TABLET PO SCH (10:59)
[2020-09-30] MEDS: ASCORBIC ACID 500 MG TAB PO SCH ×2 (10:59→21:40)
[2020-09-30] MEDS: SODIUM BICARBONATE TAB 650 MG TAB PO SCH ×3 (10:59→21:40)
[2020-09-30] MEDS: ENOXAPARIN 30 MG/0.3 ML SYRINGE SQ SCH (10:59)
[2020-09-30] MEDS: SODIUM CHLORIDE 0.9% 500 ML 500 ML IV SCH (11:01)
[2020-09-30] MEDS: NOREPINEPHRINE 8 MG in SODIUM CHLORIDE 0.9% 250 ML IV SCH (11:02)
[2020-09-30 12:33] LABS: Glucose,Whole Blood 112 mg/dL (75-99)
--- NOTE | 2020-09-30 13:05 | PN ---
PROGRESS NOTE The patient is seen for followup for acute kidney injury. Patient remains oliguric. She is hemodialysis dependent. She is currently seen on hemodialysis. Goal UF set for about 3 L again today. Case is discussed with nursing staff. The patient's blood pressure is about 112-116 mmHg systolic, heart rate in the 90s. She is afebrile. She remains on the vent. Edema 1+ noted bilaterally, upper and lower extremities. Abdomen is soft, obese, nontender. LAB: Shows sodium 134, potassium 4.4, chloride 103, BUN 31, creatinine 3.75, hemoglobin 7.9 g/dL. ASSESSMENT: 1. Acute kidney injury, acute tubular necrosis, currently dialysis dependent. 2. Volume overload currently improved. 3. COVID pneumonia, maintained on steroids. Remains on the vent. 4. Acute hypoxic respiratory failure secondary to COVID pneumonia. 5. Metabolic acidosis maintained on bicarb, which we can continue for now. PLAN: Hemodialysis today. Goal UF about 3 L, next treatment will be on Friday. MMODL / IJN: [id number] /
--- NOTE | 2020-09-30 14:11 | P.PN ---
Subjective Progress Note Date: 09/30/20 35-year-old female patient of Dr. Arroyo with past medical history of type 2 diabetes comes in with acute shortness of breath associated with high light sugars. Patient on admission was found to have a fever of 101.5 pulse rate 125 respiratory rate 20. Blood pressure 132/106. On chest x-ray obtained in the ER suggestive of bilateral infiltrates concerning for call with pneumonia. COVID PCR was positive. On admissions patient had an ABG with a pH of 7.14 pCO2 of 20, pO2 of 59, bicarb of 7. Patient's blood sugar on admission was 424 on assessment today patient's blood work patient had a sodium 135 potassium 5.4 chloride 123 bicarb less than 5 and creatinine 0.73. D-dimer was elevated on admission patient 9 28 patient given 1 L of IV fluids followed by normal saline running at 200 mL/h. Patient was positive for acetone on admission. She will anion gap closed and was switched to D5NS. Insulin drip was continued during the night and was switched to patient's home medication this morning. One dose of remdesiver was ordered. Apparently around noon, A- team was called on the patient secondary to hypoxia patient's oxygen saturation dropped to the 70s and 80s on 100% nonrebreather. Patient was switched to BiPAP on 18/12 and is doing better o FiO2 of 80%. ABG was obtained and ph was 7. 14 pCO2 of 28 bicarb of 7 pO2 of 17. Patient noted to have uncompensated metabolic acidosis with compensated respiratory alkalosis. Stat dose of 1 amp bicarb was given and followed by sodium bicarbonate drip. Insulin drip restarted. Patient's initiated on dexamethasone 6 mg IV twice a d ay. Potassium phosphate ordered as phosphorus is low. Patient's repeat blood gases suggest a pH of 7.25, CO2 32 pO2 of 72 bicarb 14. I will not normal saline at 100 mL/h as patient's anion gap has increased. Patient given 1 dose of 2 mg of morphine with improvement in respiratory rate. One dose of Ativan 0.5 mg was given. Xanax 0.25 twice a day along with Ativan 0.5 IV every 6 hours ordered for the patient. Vitals were evaluated patient pulse 129 [id number]. She was moved to the ICU. Precedex drip was initiated. Lopressor was initiated at 25 twice a day. Metoprolol tartrate 5 mg IV every 6 hours. Systolic blood pressure more than 160. Started chest x-ray was obtained and suggest stable bilateral consolidation suggestive of COVID-19 pneumonia. 09/12 patient is seen in the ICU is currently mechanically ventilated and sedated on vent settings of respiratory rate 36, tidal volume 375 FiO2 80% PEEP of 18.. Vital signs reviewed patient had a temp of 100.4 pulse 150 respiratory rate 36 oxygen saturation 95% on 80% on fio2 .'s labs are reviewed which patient had a d-dimer 1.84 that is increased to 14.3. Arterial Blood gas suggest ph 7.35, CO2 40, po2 62, . Her BMP suggest a sodium 135 potassium 3.7 chloride 112 bicarb 21 creatinine 1.57 for calcitonin is 3.5 CRP is increased from 8.78.2 LDH is increased to 2614. Patient remains on Pneumovax, propofol drip. Lovenox increased to 50 subcu twice a day. Patient received 2 L of IV fluids. Continue IV fluids at 100 mL/h. Bicarb drip discontinued patient initiated on Zosyn 3.375 every 8 hours. Continue insulin drip at 4 units per hour. Patient is currently in prone positioning 09/13: Patient evaluated in the ICU remains on Ventilation continues to be sedated, in prone position. Vent settings are respiratory rate 36, tidal vital 375, FiO2 70% PEEP of 18. ABG shows pO2 of 82, PCO2 of 39, pH is 7.19. Latest labs show WBC 11.1, hemoglobin 13.2, d-dimer still pending, but yesterday was up to 14.3. Creatinine up to 3.4, BUN 24 sodium 137, potassium 4.0. Patient's urine output has been low, nephrology on consult. Bicarb drip increased to 100 miles an hour, receiving another liter of normal saline, she did have a ultrasound that showed unremarkable bilateral kidneys. Repeat chest x-ray showed bilateral lung infiltrates that are stable. Anion gap has closed, will start Lantus 10 units at at bedtime Novolog every 6 hours. 09/14: Patient is seen in the ICU, still currently mechanically ventilated and sedated. She continues in the prone position. Her oxygen quickly drops if she is not in prone. Patient's kidney function has worsened. Laboratory values show creatinine of 4.87, BUN 33, LDH 2191, C-reactive protein 2.7. ABG shows pH 7.32, pO2 of 60, pCO2 43. Patient is making almost no urine overnight. Nephrology is following patient continues on cefepime for urinary tract infectio n, culture is still pending. Vascular has been consulted for placement of temporary hemodialysis catheter for plans for dialysis. 09/15: Patient evaluated in the ICU, continues to be mechanically ventilated and sedated on assist control ventilation rate of 36, tidal volume 375, FiO2 100% and PEEP of 18. ABG today shows pO2 58, pCO2 of 45, and pH 7.35. She continues on tube feedings. Yesterday patient underwent ultrasound-guided right internal jugular non-tunneled hemodialysis catheter placement. Patient underwent hemodialysis treatment last night and plans have another hemodialysis treatment today. She continues to make almost no urine. She continues on cefepime for antibiotic coverage, and continues on Decadron and Lovenox. 09/16: Patient seen on follow-up remains in the ICU mechanically ventilated and sedated. She continues on assist control rate of 36, tidal volume 375, FiO2 10 0% and PEEP of 20. PEEP had to be increased due to patient had to be in supine position for dialysis, will go back to prone position once dialysis is complete. ABG shows pH 7.32, pCO2 49, PaO2 61. Laboratory values showed WBC 11.2, hemoglobin 11, sodium 134, creatinine 4.44, BUN 38. Urine culture shows no growth, blood cultures show no growth to date. Repeat chest x-ray shows bilateral pleural effusions, correlate for ARDS, pulmonary edema, diffuse pneumonia, findings are stable from last exam. Patient does not require any pressors, blood pressure 133/57, heart rate 78. 5/16: Patient was evaluated in the ICU today for follow-up. She continues to be intubated and on mechanical ventilation. Current vent settings are tidal volume 375, FiO2 100% and PEEP of 20. ABG shows pH 7.37, pCO2 40, pO2 102. She continues with intermittent prone positioning. Patient continues to have almost no urine output, maintained on dialysis. Patient received dialysis yesterday without complication. Laboratory values revealed WBC 10.3, hemoglobin 10.4, sodium 132, potassium 3.1, BUN 33, creatinine 4.29, LDH 1913, C-reactive protein 1.3. Urine and sputum cultures are negative, blood cultures show no growth to date. Consult placed to dietary to start TPN[ ] 09/18: She remains in the intensive care unit intubated and on mechanical ventilation with tidal volume 375, FiO2 60 and PEEP of 20. Patient is being prone to daily at approximately 16 hours per day. Pulmonary medicine has added in Dr. Zhang to do PEG tube and trach today. Patient is not on vasopressors. Repeat blood work reveals WBC 12.6, hemoglobin 9.8, platelet count 212. Sodium 133, potassium 3.2, chloride 102, CO2 21, BUN 35 and creatinine 4.12. Blood sugar 126. Patient underwent hemodialysis yesterday with removal of 2 L and is scheduled again today with goal of 2-3 L and is scheduled again tomorrow. 09/19: She is scheduled for hemodialysis today and is off fentanyl temporarily. Patient is status post trach and PEG tube yesterday. And she remains on mechanical ventilation. Pulse ox 93-95%. She has been afebrile, heart rate 64, respiratory rate 36, blood pressure 115/50. Fentanyl is off to improve blood pressure for hemodialysis which is scheduled for today. Contacted vascular surgery about permanent hemodialysis catheter. Repeat blood work reveals WBC 14.3, hemoglobin 9.6, platelet count 200. D-dimer 6.48. LDH 1686. C-reactive protein 1.1. BUN 34 creatinine 3.81. Sodium 130, potassium 3.5, chloride 101, CO2 18. Blood sugars running between 101 198. Plan is to wean off Pneumovax today. Patient remains on insulin drip. Repeat chest x-ray reveals bilateral multifocal confluent opacities consistent with COVID-19. Some improved aeration periphery of the left lung and worsening opacities throughout the right lung. 09/20: She remains in the intensive care unit on mechanical ventilation. She has been afebrile, heart rate 65, respiratory rate 37, blood pressure 121/70, pulse ox 91-99%. Repeat blood work reveals WBC 14.5, hemoglobin 9.1, platelet count 216. D-dimer 6.13. Sodium 133, potassium 3.1, chloride 102, CO2 18, BUN 35 and creatinine 4.27. Blood sugars running between 128 and 143. LDH 1717. C- reactive protein 1.7. Patient remains on insulin drip which will be transit ioned to NovoLog scale every 6 hours. Patient is scheduled for permanent hemodialysis catheter placement today with vascular surgery. Repeat chest x-ray reveals stable diffuse bilateral interstitial and airspace disease. Possible small right effusion. His work is following for transfer to custodial care facility. Do not anticipate discharge until next week. 09/21: Patient is undergoing hemodialysis. She remains on mechanical ventilation with tidal volume 375, FiO2 down to 45 and PEEP was decreased to 15. Patient is continued on propofol, fentanyl drips. She is on tube feedings at goal. Patient was taken off insulin drip yesterday and on scale only but blood sugars are running in the 200s, Levemir scheduled at bedtime will be added. Other blood work reveals WBC 13.3, hemoglobin 8.7, platelet count 192. Sodium 137, potassium 3.6, chloride 107, CO2 18, BUN 34 and creatinine 4.21. Repeat chest x-ray is stable. 09/22: She remains in the intensive care on mechanical ventilation with tidal volume 375, FiO2 of 50 and PEEP of 10. Pulse ox is running 96%. She is afebrile, heart rate in the 50s, respiratory rate 36, blood pressure 100/64. Repeat blood work reveals WBC 16.5, hemoglobin 8.9, platelet count 213. Sodium 134, potassium 3.7, chloride 103, CO2 21, BUN 34 and creatinine 3.89. Blood sugars running in the 200s to 324. Levemir increased to 16 units at bedtime and continue NovoLog scale every 6 hours. Patient is on tube feedings at goal. She has a Haley catheter in with a scant amount of dark/brown urine. Fecal management system is in place. Repeat chest x-ray reveals diffuse bilateral airspace infiltrates persist unchanged. Patient is scheduled for hemodialysis tomorrow morning on Friday. 09/23: Patient remains on mechanical ventilation with tidal volume 3.75, FiO2 50 and PEEP of 10. 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 She has no urine output. Fecal management system is in place. She is undergoing dialysis at this time with plan for removal of 2-1/2 L. She has been afebrile, heart rate in the 50s, respiratory rate 36, blood pressure 108/76 and pulse ox 89%. WBC 13.6, hemoglobin 9.1, platelet count 194. Sodium 136, potassium 3.0 and was replaced, chloride 106, CO2 21, BUN 49 creatinine 5.31. Blood sugars are running between 182 and this morning 194. Patient was still in the 200s and 300s. Levemir last evening was increased to 16 units. Patient remains on propofol and fentanyl drips. Lovenox was increased to 60 mg twice daily. 09/24: PEEP was increased today to 20, tidal volume is at 375 and FiO2 of 50%. Patient has been afebrile. She has been started on levo fed. Repeat chest x- ray reveals bilateral multifocal confluent opacities consistent with Covid 19 or ARDS redemonstrated. Nephrology will plan dialysis for tomorrow for 3 L. Patient remains on propofol fentanyl and Nimbex. WBC 12.5, hemoglobin 9.8, platelet count 161. D-dimer 13.3. Sodium 132, potassium 3.4, chloride 102, CO2 20, BUN 48 and creatinine 4.67. Blood sugars extremely elevated to 96-409. LDH 2217. 09/25: Patient remains in the intensive care unit on mechanical ventilation with tidal volume 375, FiO2 50 and PEEP of 20. Patient is afebrile, heart rate 61, respiratory rate 36, blood pressure 102/56, pulse ox 97%. Repeat blood work reveals WBC 9.3, hemoglobin 8.5 and platelet count 171. Sodium 130, potassium 3.7, chloride 100, CO2 20, BUN 61 creatinine 5.65. Blood sugars have been elevated up to 455. Levemir increased to 20 units twice daily, NovoLog 5 units every 6 hours and continue NovoLog scale. Patient is scheduled for hemodialysis today. Repeat chest x-ray reveals bilateral multifocal and confluent opacities. Decadron and Lovenox dosing change by pulmonary. Patient is off norepinephrine. 09/26: Patient remains in the intensive care unit on mechanical ventilation with tidal volume 375, FiO2 50 and PEEP of 15. She has been afebrile, heart rate 91, blood pressure 114/68, pulse ox 99%. 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 Sodium 134, potassium 3.6, chloride 102, CO2 22, BUN 41 creatinine 4.21. Patient has improved blood sugars this morning running 150s and 160s. Diabetic medications were adjusted yesterday. Patient is awake and alert and interacting. Yesterday, patient had PICC line inserted by interventional radiology. Repeat chest x-ray reveals diffuse airspace infiltrates in both lung ann appear to progress slightly in the interval. 09/27: Patient remains in intensive care unit on mechanical ventilation with improvement of settings with tidal volume 375, FiO2 decreased to 40 and PEEP decreased to 10. Patient is on hemodialysis every other day and plan to remove 3 L today. Patient is more awake and alert. She is slow to respond but is able to follow simple commands. Blood sugars are running between 84 and 123. Repeat blood work reveals WBC 7.1, hemoglobin 8.1, platelets 152. Sodium 135, potassium 3.6, chloride 103, CO2 21, BUN 53 and creatinine 5.88. Repeat chest x-ray revealed cardiomegaly and pulmonary edema. Patient is on tube feedings:. Patient is not require vasopressors and is off sedation. Fecal management system remains in place for brown liquid stool. C. difficile was negative. 09/28: Patient remains on mechanical ventilation with tidal volume 375, FiO2 increased to 80 and PEEP increased to 18. Patient had a rough night was very anxious, no pain. Xanax 0.25 mg 3 times daily was added. There is concern for pulmonary embolism for which patient was started on heparin drip, she is unable to undergo CAT scan. Venous Doppler bilateral lower extremities was nondiagnostic due to extensive edema in obese patient but minimal imaging of the popliteal veins does show flow. Repeat echocardiogram has been ordered. Cefepime has also been ordered at 1 g IV piggyback every 24 hours as well as vancomycin, pharmacy dosing. Patient is back on fentanyl drip, propofol drip and norepinephrine. Blood sugars are elevated and insulin Levemir will be increased to 25 mg twice daily. Ferrlecit infusion has been ordered by nephrology for 4 days. Patient is undergoing hemodialysis today.temperature max 100.2, heart rate 134, respiratory rate 34, blood pressure 120/65, pulse ox 94%. machine cementer and folder is sinus tachycardia. Repeat blood work reveals WBC 16.9, hemoglobin 9.7, platelet count 216. D-dimer 8.81. Sodium 134, potassium 3.8, chloride 99, CO2 25, BUN 43 and creatinine 5.36. Blood sugars in the 200s. AST 40. 09/29 Patient had declined more last 48 hours require more sedation, patient is doing hemodialysis, respiratory failure is quite bit worse this time. Patient was inquired the pain is well back on fentanyl drip. Her vent set up with PEEP is limited but higher. No new finding on culture and her chest x-ray continues shows diffuse infiltrate persistent although there is a moderate interval improvement. REVIEW OF SYSTEMS Unable to obtain due to mechanical ventilation. Objective - Vital Signs Vital signs: Vital Signs Temp 98.2 F 09/30/20 12:36 Pulse 96 09/30/20 11:15 Resp 28 H 09/30/20 12:36 BP 124/62 09/30/20 12:36 Pulse Ox 94 L 09/30/20 11:15 Intake & Output 09/29/20 09/30/20 09/30/20 18:59 06:59 18:59 Intake Total 2403.842 1176.072 815.364 Output Total 3010 17 3000 Balance -365.821 8221.072 -2184.636 Weight 123.1 kg Intake: IV 276 276 115 0.9 Normal Saline @ KVO 240 240 100 Pressure Bag 36 36 15 Intake, IV Titration 1887.842 760.072 630.364 Amount Cefepime 1 gm In Sodium 50 Chloride 0.9% 50 ml @ 12. 5 mls/hr IVPB Q24H [facility] Rx #:[id number] Cisatracurium 200 mg In 172.8 187.2 108.72 Sodium Chloride 0.9% 180 ml @ 1 MCG/KG/MIN 7.2 mls /hr IV .Q24H [facility] Rx#: [id number] Heparin Sod,Pork in 0.45% 133.239 NaCl 25,000 unit In 0.45 % NaCl 1 250ml.bag @ 18 UNITS/KG/HR 21.6 mls/hr IV .[id number] [facility] Rx#: [id number] Norepinephrine 8 mg In 226.163 22.872 0.244 Sodium Chloride 0.9% 250 ml @ 0.05 MCG/KG/MIN 11. 61 mls/hr IV .[id number] [facility] Rx#:[id number] Sodium Ferric Gluconat- 100 Sucrose 125 mg In Sodium Chloride 0.9% 100 ml @ 100 mls/hr IVPB DAILY [facility] Rx#:[id number] Vancomycin 1,750 mg In 500 Sodium Chloride 0.9% 500 ml 500 ml @ 167 mls/hr IVPB ONCE ONE Rx#: [id number] fentaNYL (PF) 2,500 mcg 241.2 250 233.2 In Sodium Chloride 0.9% 200 ml @ Per Protocol IV .Q0M [facility] Rx#:[id number] propofoL 1,000 mg In 464.44 300 288.2 Empty Bag 1 bag @ Per Protocol IV .Q0M [facility] Rx#: [id number] Tube Feeding 120 80 40 Other 120 60 30 Output: Urine 10 17 0 Hemodialysis 3000 3000 Other: Voiding Method Indwelling Catheter Indwelling Catheter ABP, PAP, CO, CI - Last Documented Arterial Blood Pressure 114/48 - Exam Physical exam restricted due to COVID 19 - Constitutional General appearance: cooperative, tracheostomy in place and sedated,supine - Neck Neck: normal ROM - Respiratory Respiratory: bilateral decreased air entry. Minimal chest retractions noted - Cardiovascular Rhythm sinus tachycardia Heart sounds: normal: S1, S2 - Gastrointestinal General gastrointestinal: Nondistended PEG tube in place and dry fecal management system in place with brown stool - Integumentary Integumentary: no rash no pedal edema no calf tenderness - Neurologic Neurologic: No gross motor deficit - Musculoskeletal Musculoskeletal: Sedated - Psychiatric Psychiatric: Sedated - Labs CBC & Chem 7: 09/30/20 03:30 09/30/20 03:30 Labs: Abnormal Lab Results - Last 24 Hours (Table) 09/29/20 09/30/20 09/30/20 Range/Units 18:22 00:08 03:30 RBC (3.80-5.40) m/uL Hgb (11.4-16.0) gm/dL Hct (34.0-46.0) % RDW (11.5-15.5) % Lymphocytes # (1.0-4.8) k/uL D-Dimer (<0.60) mg/L FEU ABG pH (7.35-7.45) ABG pCO2 (35-45) mmHg ABG pO2 (83-108) mmHg ABG Total CO2 (19-24) mmol/L ABG O2 Saturation (94-97) % Sodium 134 L (137-145) mmol/L BUN 31 H (7-17) mg/dL Creatinine 3.75 H (0.52-1.04) mg/dL Glucose 107 H (74-99) mg/dL POC Glucose (mg/dL) 142 H 107 H (75-99) mg/dL Total Bilirubin 0.1 L (0.2-1.3) mg/dL Total Protein 5.1 L (6.3-8.2) g/dL Albumin 2.4 L (3.5-5.0) g/dL 09/30/20 09/30/20 09/30/20 Range/Units 03:30 03:30 05:10 RBC 2.84 L (3.80-5.40) m/uL Hgb 7.9 L (11.4-16.0) gm/dL Hct 24.5 L (34.0-46.0) % RDW 15.6 H (11.5-15.5) % Lymphocytes # 0.8 L (1.0-4.8) k/uL D-Dimer 3.60 H (<0.60) mg/L FEU ABG pH 7.28 L (7.35-7.45) ABG pCO2 49 H (35-45) mmHg ABG pO2 60 L (83-108) mmHg ABG Total CO2 (19-24) mmol/L ABG O2 Saturation 87.6 L (94-97) % Sodium (137-145) mmol/L BUN (7-17) mg/dL Creatinine (0.52-1.04) mg/dL Glucose (74-99) mg/dL POC Glucose (mg/dL) (75-99) mg/dL Total Bilirubin (0.2-1.3) mg/dL Total Protein (6.3-8.2) g/dL Albumin (3.5-5.0) g/dL 09/30/20 09/30/20 09/30/20 Range/Units 06:35 10:56 12:31 RBC (3.80-5.40) m/uL Hgb (11.4-16.0) gm/dL Hct (34.0-46.0) % RDW (11.5-15.5) % Lymphocytes # (1.0-4.8) k/uL D-Dimer (<0.60) mg/L FEU ABG pH 7.30 L (7.35-7.45) ABG pCO2 48 H (35-45) mmHg ABG pO2 61 L (83-108) mmHg ABG Total CO2 25 H (19-24) mmol/L ABG O2 Saturation 89.0 L (94-97) % Sodium (137-145) mmol/L BUN (7-17) mg/dL Creatinine (0.52-1.04) mg/dL Glucose (74-99) mg/dL POC Glucose (mg/dL) 131 H 112 H (75-99) mg/dL Total Bilirubin (0.2-1.3) mg/dL Total Protein (6.3-8.2) g/dL Albumin (3.5-5.0) g/dL Microbiology - Last 24 Hours (Table) 09/29/20 00:06 Gram Stain - Preliminary Sputum Sputum Culture - Preliminary 09/28/20 09:45 Blood Culture - Preliminary Blood No Growth after 48 hours 09/28/20 09:45 Blood Culture - Preliminary Blood No Growth after 48 hours 09/28/20 08:54 Urine Culture - Final Urine,Voided Riri albicans Assessment and Plan Plan: 1. Acute hypoxic respiratory failure secondary to Covid 19 pneumonia and possible bacterial pneumonia. Patient was intubated on September 11. She is status post 1 dose of Remdesivir and 1 dose of Tocilizumab. Continue Ventolin inhaler 4 times daily, Symbicort twice daily, Decadron 4 mg IV daily, Lovenox 30 mg subcu daily, supplements. Status post PEG tube and trach. Patient started on cefepime and vancomycin. still seen infectious disease, and pulmonary, she had declined more in the last few days. Currently stable 2. Acute kidney injury secondary to ATN secondary to Covid 19 and DKA. Patient continued on hemodialysis. Permanent dialysis catheter placed. patient is doing dialysis almost on daily basis. 3. Metabolic encephalopathy secondary to Covid 19 and DKA.significant declining condition. 4. Sepsis and septic shock secondary to Covid 19 pneumonia. Continue as in #1. 5. Acute metabolic acidosis secondary to acute DKA, Covid 19 and acute kidney injury. 6. Diabetes mellitus type 2 uncontrolled with A1c 13.6. continue intense diabetic management and insulin. 7. electrolyte imbalance: Post correction of hypophosphatemia 8. hypertension: Blood pressure slightly bit low at this point patient remain on metoprolol IV and per PEG tube. 9. Sinus tachycardia secondary to sepsis, volume deficiency.Continue Lopressor 25 mg twice daily. 10. type 2 diabetes on insulin with presentation with diabetic ketoacidosis secondary to COVID-19 altercation, patient remain on Levemir 20 units twice a day along with schedule NovoLog 8 units before meals meals and keep titrating the dose. 11. Possible acute gram-negative pneumonia versus MRSA pneumonia. Patient has been started on cefepime and vancomycin. 12. Morbid obesity with BMI of 53. 13. DVT prophylaxis. Lovenox. 14. GI prophylaxis. Protonix 40 mg IV push daily. CODE STATUS: Full code Prognosis guarded.
[2020-09-30 17:43] LABS: Glucose,Whole Blood 135 mg/dL (75-99)
[2020-09-30 23:27] LABS: Glucose,Whole Blood 102 mg/dL (75-99)
[2020-10-01 05:04] LABS: Glucose,Whole Blood 122 mg/dL (75-99)
[2020-10-01 05:15] LABS: ABG HCO3 21 mmol/L (21-25); ABG Oxygen Saturation 90.8 % (94-97); ABG PCO2 37 mmHg (35-45); ABG PH 7.35 (7.35-7.45); ABG PO2 63 mmHg (83-108); ABG TCO2 22 mmol/L (19-24); Allen Test Performed? Yes
[2020-10-01] MEDS: INSULIN ASPART (NovoLOG) 100 UNIT/ML VIAL SQ SCH ×6 (05:16→18:27)
[2020-10-01 05:32] LABS: Basophils % (A) 0 %; Eosinophils # (A) 0.4 k/uL (0-0.7); Eosinophils % (A) 5 %; HCT 21.9 % (34.0-46.0); HGB 7.3 gm/dL (11.4-16.0); Hypochromasia Slight; Lymphocytes # (A) 0.7 k/uL (1.0-4.8); Lymphocytes % (A) 10 %; MCH 28.5 pg (25.0-35.0); MCHC 33.2 g/dL (31.0-37.0); MCV 85.9 fL (80.0-100.0); Mean Platelet Volume 8.9; Monocytes # (A) 0.4 k/uL (0-1.0); Monocytes % (A) 5 %; Neutrophils # (A) 5.5 k/uL (1.3-7.7); Neutrophils % (A) 78 %; Platelet Count 150 k/uL (150-450); Poikilocytosis Slight; RBC 2.55 m/uL (3.80-5.40); RDW 15.6 % (11.5-15.5); WBC 7.1 k/uL (3.8-10.6)
[2020-10-01] MEDS: ARTIFICIAL TEARS OINTMENT 3.5 GM TUBE BOTH EYES SCH ×5 (05:35→20:18)
[2020-10-01 05:47] LABS: Albumin 2.2 g/dL (3.5-5.0); Calcium 8.8 mg/dL (8.4-10.2); Potassium 3.8 mmol/L (3.5-5.1); Total Bilirubin 0.1 mg/dL (0.2-1.3); Total Protein 4.7 g/dL (6.3-8.2)
[2020-10-01 05:52] LABS: Vancomycin,Random 22.8 ug/mL
[2020-10-01] MEDS: INSULIN DETEMIR (LEVEMIR) 100 UNIT/ML SYR SQ SCH ×2 (07:03→20:54)
[2020-10-01] MEDS: SEVELAMER 800 MG TAB PO SCH ×3 (07:04→16:33)
[2020-10-01] MEDS: ALBUTEROL HFA INHALER INHALATION SCH ×4 (07:33→21:28)
[2020-10-01] MEDS: SYMBICORT 160-4.5 MCG INHALER INHALATION SCH ×2 (07:33→21:29)
[2020-10-01] MEDS: NOREPINEPHRINE 8 MG in SODIUM CHLORIDE 0.9% 250 ML IV SCH ×2 (08:55→20:53)
[2020-10-01] MEDS: SODIUM FERRIC GLUCONAT-SUCROSE 125 MG in SODIUM CHLORIDE 0.9% 100 ML IVPB SCH (08:55)
[2020-10-01] MEDS: ZINC SULFATE 220 MG CAP PO SCH (08:58)
[2020-10-01] MEDS: DEXAMETHASONE SOD PHOSPHATE 4 MG/ML 1 ML VIAL IV SCH (08:58)
[2020-10-01] MEDS: CHOLECALCIFEROL 25 MCG (1000 IU) TABLET PO SCH (08:58)
[2020-10-01] MEDS: PANTOPRAZOLE 40 MG/10 ML VIAL IVP SCH (08:58)
[2020-10-01] MEDS: SODIUM BICARBONATE TAB 650 MG TAB PO SCH ×3 (08:58→20:53)
[2020-10-01] MEDS: ASCORBIC ACID 500 MG TAB PO SCH ×2 (08:58→20:53)
[2020-10-01] MEDS: ENOXAPARIN 30 MG/0.3 ML SYRINGE SQ SCH (08:58)
[2020-10-01] MEDS: SODIUM CHLORIDE 0.9% 500 ML 500 ML IV SCH (08:59)
--- NOTE | 2020-10-01 09:15 | P.PN ---
Subjective Progress Note Date: 10/01/20 On 09/25/2020, the patient is being seen in follow-up in the intensive care unit. For now, the patient remains in respiratory failure, remains intubated on a mechanical ventilator. She is post, respiratory failure secondary to COVID-19 related to pneumonia with secondary ARDS. The patient remained on assist control mode at the rate of 36 and a tidal volume of 375 and FiO2 of 50% with a PEEP of 20. The peak air pressure was 43. The static pressure was 37. The blood gases from today showed a pH of 7.33 with a pCO2 of 38 and pO2 of 95. Chest x-ray still consistent with diffuse bilateral pulmonary infiltrates with bilateral multifocal and confluent opacities consistent with COVID-19 related pneumonia/ARDS. The patient has been on steroids or along the patient is still on Decadron 6 mg IV every 24 hours. The patient is also on Lovenox 60 mg subcu every 12 hours. She is requiring norepinephrine infusion low-dose of 0.01 mcg/kg per minute. She remains in renal failure. Creatinine today is at 5.65 with a BUN of 61. The net fluid balance is been +38 mL over the past 24 hours. The patient's last hemodialysis session was on 09/23/2020 with a total of 2.5 L of fluids was removed and the patient is scheduled to have another session of hemodialysis today. The patient this morning is sedated with propofol running at 50 mcg/kg per minute. Nevertheless, despite that, she is arousable and she opens her eyes spontaneously. Doesn't follow commands consistently. Her white cell count is at 9.3 with a hemoglobin of 8.5 blood sugars remain elevated and the patient is on Levemir insulin 20 units twice a day and the patient is also started on lower log 5 units every 6 hours [id number] plus a signs good coverage. The patient continues to receive enteral feeds and the patient is currently on vital high protein at the rate of 45 mL an hour. IV fluids with normal saline at the rate of 20 mL an hour. The patient is afebrile. No other significant issues overnight for now. 5 2020, ration remains on a mechanical ventilator. There is a case of COVID-19 related pneumonia/ARDS. This morning, the patient has been on assist-control at the rate of 28 with a tidal volume of 375 and FiO2 of 50% and a PEEP of 15. The peak air pressure is 37 and the plateau airway pressure is 31. The blood gas showed a pH of 7.41 with a pCO2 of 38 and pO2 of 73. Chest x-ray is showing the pulmonary infiltrates. The patient has a hemodialysis catheter in her right IJ. The pulmonary infiltrates are essentially the same probably slightly improved compared to yesterday. Note that the patient also has dialysis-dependent renal failure. She is being dialyzed periodically. Her last session of hemodialysis was yesterday where a total of 3.3 of fluid was removed without any major diffi culties or hemodynamic instability. The patient otherwise is awake. She is off sedation. She is watching television. She is following simple commands. Her blood work shows a white cell count of 8.5 with a stable hemoglobin of 9. Platelets is at 169. D-dimer was lower at 4.57. Albumin is at 41 with a creatinine of 4.2. No electrolyte abnormalities or disturbances at this point in time. She is receiving enteral feeding for nutritional support via PEG tube. She is receiving his vital high protein at the rate of 31 mL an hour. She is producing adequate stool which is in the form of the diarrhea and the patient has a fecal management system in place. Output is in the order of 200-300 mL on a daily basis. She has been on Lovenox 40 mg subcu on a daily basis. The patient is also on Decadron 4 mg IV every 24 hours. She is on no antibiotics for now. IV fluids are running at 20 mL an hour of normal saline. She is afebrile. She is hemodynamically stable. No other significant events over the past 24 hours. She is been off propofol for the past 3 hours. 09/27/2020, the patient is awake off propofol. She is recovering from COVID-19 related pneumonia/ARDS. Responsive and the patient is awake and alert and she is following commands. Her chest x-ray from today is remaining unchanged with diffuse bilateral pulmonary infiltrates. Tracheostomy tube is in a good location. Meanwhile, the patient remains on a mechanical ventilator essentially on the same setting which includes a rate of 28 with a tidal volume of 375 and FiO2 of 40% and PEEP has been drop down to 10 and the blood gas shows a pH of 7.41 with a pCO2 of 35 and pO2 of 74. She is resting comfortably. Respiratory rate currently is at 34 and the patient is obviously less tachypneic compared to yesterday. She is undergoing periodic dialysis. Her last dialysis was on 09/25/2020 and the patient is undergoing dialysis today. The patient remains hemodynamically stable. She is moving all 4 extremities. She has generalized global weakness which is quite expected because of prolonged respiratory failure and prolonged ICU stay. She is receiving enteral feeding for nutritional support and she is on vital high protein at the rate of 45 mL an hour. Urine output is in the order of 5 mL an hour. Her electrolytes show a sodium of 135, potassium of 3.6, BUN is up 53 with a creatinine of 5.8. The patient has a white cell count 7.1 and hemoglobin of 8.1. The patient otherwise is hemodynamically stable. The patient is off sedation. The patient is able to move her extremities and there is no focal neurological deficit at this point in time. She is doing slow an ongoing progress for now. She is still having some loose liquidy diarrhea. Stool for C. diff has been negative. 09/28/2020, the patient has decompensated. As of midnight yesterday, the patient stated that she was not feeling well. She clearly communicated this with the nurses. Subsequently, she became more tachypneic and short of breath while on a mechanical ventilator and she began progressively hypoxic more confused and more restless and agitated. At that point, I initially started on Precedex. I increased the PEEP knowing that the patient was having ongoing hypoxemia while on the mechanical ventilator. Nevertheless, the patient was not responding and she continued to be having worsening and hypoxemia. At that p oint, she was started back comfortable for which is currently running at 75 mcg/kg per minute. She is fully sedated for now. She is back on a mechanical ventilator in the PEEP is currently up to 18 with a tidal volume of 375 and the rate of 28 and FiO2 of 100%. Note that the blood gases earlier prior to this change showed a pH of 7.29 with a pCO2 of 50 and pO2 of 37 and this was done while on a FiO2 of 90% with a PEEP of 6. The chest x-ray showing diffuse bilateral airspace disease system with ARDS. At that point, a workup was initiated regarding her hypoxemia. Doppler of the lower extremity was done and the results were negative. Noted the patient was already on Lovenox. Nevertheless, due to my concern of pulmonary embolism, I put the patient IV heparin. The d-dimer was repeated and the level came back at 8.8 with a slightly higher compared to yesterday. I also give the patient, addition of antibiotics including cefepime and vancomycin. Cultures are still pending. White cell count is up to 16.9. Pneumonia is considered although I'm not absolutely certain about this diagnosis. Meanwhile, the patient was asked to undergo another session of hemodialysis. Currently she is running a dialysis right now with an ultrafiltration of around goal. Echocardiogram was also ord ered. Her current pulse ox 97%. The patient exercises monitoring elevation of PEEP and sedation. The patient will have a follow-up blood gas done post dialysis the necessity ventilator changes will be done. Haley cath is in place. Urine output is minimal in the order of 20 disease over the past 12 hours. Note that her weight has been stable and there is no signs of any major volume change. She remains overloaded in terms of fluid in general. She has a PEG tube. Enterofeeding is still being continued with vital high protein at the rate of 51 mL an hour. Rest of the electrolytes are normal. Serum bicarb is 25. BUN is at 43 with a creatinine of 5.36. LFTs are normal. 09/29/2020, the patient remains sedated and paralyzed. I had to paralyze her yesterday as the patient was quite asynchronous a mechanical ventilator and she was peak pressuring significantly. As such, she is maintained on a combination of propofol which is running at 60 mcg/kg per minute and the patient is also o at 2 mcg/kg per minute and fentanyl at 2 mcg/kg/h. She is quite successful mechanical ventilator. Nevertheless, earlier this morning and overnight the pressures both at peak and static have been quite elevated with a peak airway pressure of 54 anesthetic at a pressure of 49. Based on that, and the morning evaluation, I dropped his tidal volume down to 350 and I also doubt the PEEP down to 15. Prior to that, the patient was on a PEEP of 18 with an FiO2 of 60% and a tidal volume of 375 with a rate of 28 and her blood. This was showing a pH of 7.28 with a pCO2 of 50 and pO2 of 86 to chest x-ray shows improvement in the left lung consolidation. The patient has a tracheostomy tube in place. Note that the patient is undergoing hemodialysis at this point in time with a goal of 3.3 L of ultrafiltration. Hemodynamically she is requiring pressors and she is currently on norepinephrine infusion at 0.09 macrovascular kilogram per minute. We are the process of weaning the pressors down as the patient's blood pressure could handle being weaned off the pressors. Meanwhile, she continues to receive enteral feeding for nutritional support with vital AF, at 10 mL an hour. She is able to tolerate the enteral feeding. In terms of her blood work, her white cell count that 0.6 with a hemoglobin of 8.2. The BUN is a 37 with a creatinine of 4.7 the sodium level is 133. Doppler of the lower extremity was negative and the echocardiogram showed a preserved LV function with an ejection fraction of 55-60%. There was severe concentric LVH. Mild pulmonary hypertension with a PA pressure of 41 mmHg. No valvular abnormalities. No RV dysfunction. Sputum culture has been negative. Urine cultures been negative. Blood culture has been also negative. We have her on IV cefepime and vancomycin as broad-spectrum antibiotic coverage. 2020, the patient remains paralyzed and sedated. This morning, she is on a combination of poor before running at 3 mcg/kg per minute and she is also on fentanyl at 2 mcg/kg/h and the patient is also Nimbex at 2 mcg/kg per minute. The patient compatible to yesterday. She remains on a mechanical ventilator. She is an assist-control mode at the rate of 28 with a tidal volume of 350 and FiO2 of 50% with a PEEP of 13. Peak airway pressure is 41, static pressures 37. Chest x-ray showing diffuse breath and pulmonary infiltrates consistent with ARDS. Tracheostomy tube is in place. No evidence of leak around the tracheostomy tube. The blood gases from today shows a pH of 7.28 with a pCO2 of 49. CO2 was 60. Overall hemodynamics is essentially stable with some requirements of norepinephrine infusion and norepinephrine is currently running at 0.02 macrovascular kilogram per minute and this is needed while the patient is undergoing daily dialysis with ultrafiltration. In fact, the patient is in the process of undergoing dialysis this morning with a goal of 3.3 L of ultrafiltration. She has been handling dialysis without any major difficulties. No fever. Her cultures have been negative. She was covered with broad-spectru m antibiotics and I think it's reasonable to these correlate with antibiotics and stop. She has a preserved LV function on the echocardiogram. Cultures of been all negative. She is receiving enteral feeding for nutritional support and she is able to tolerate that without any major difficulties. No other significant events overnight. Cardiac rhythm is sinus. Her labs show a white cell count of 7.6 with a stable hemoglobin of 7.9. Her d-dimer is at 3.6. Rest of the blood work and electrolytes shows a creatinine of 3.75 and a sodium level of 134. Total protein is at 5.1 with albumin of 2.6. Vancomycin random was 30.6. 10/01/2020, seeing the patient for a follow-up. On today's evaluation, when the process of getting this patient a sedation holiday and we are seeing some adequate neurological recovery as the patient open up her eyes and following some simple commands. The patient otherwise is still a mechanical ventilator. She is off paralytics. She is off the fentanyl drip and propofol is currently running at 50 mcg/kg per minute and when the process of weaning it off. She remains on assist control with a rate of 28 and a tidal volume of 350 and FiO2 of 50% with a PEEP of 11. Patient is at 7.35 with a pCO2 of 37 and pO2 of 63. No chest x-ray was done today. She is hemodynamically stable. She is on no pressors. Her last bout of hemodialysis was yesterday. She is showing a creatinine of 3.9 with a BUN of 29. Sodium is at 131. Potassium is at 3.8. Urine output is minimal at this point in time. We noted that as the patient is becoming off sedation, she gets a bit asynchronous with a mechanical ventilator and she starts double stacking. As such, the weaning process will take place slowly. She is receiving enteral feeding for nutritional support. She is tolerating his enteral feeding without any major difficulties. Antibiotics have been discontinued. The patient remains on steroids in the patient is receiving Decadron 4 mg IV every 24 hours. She remains on IV Protonix. IV fluids at KVO. No pressors for now. Objective - Vital Signs Vital signs: Vital Signs Temp 98.9 F 10/01/20 08:00 Pulse 113 H 10/01/20 09:00 Resp 36 H 10/01/20 09:00 BP 93/47 10/01/20 09:00 Pulse Ox 94 L 10/01/20 09:00 Intake & Output 09/30/20 10/01/20 10/01/20 18:59 06:59 18:59 Intake Total 1294.164 869.090 211.16 Output Total 3000 5 0 Balance -1705.836 864.090 211.16 Weight 129.1 kg Intake: IV 299 253 69 0.9 Normal Saline @ KVO 260 220 60 0.9 Normal Saline 39 33 9 Pressure Bag Intake, IV Titration 785.164 456.090 92.16 Amount Cisatracurium 200 mg In 108.72 Sodium Chloride 0.9% 180 ml @ 1 MCG/KG/MIN 7.2 mls /hr IV .Q24H [facility] Rx#: [id number] Norepinephrine 8 mg In 0.244 Sodium Chloride 0.9% 250 ml @ 0.05 MCG/KG/MIN 11. 61 mls/hr IV .[id number] [facility] Rx#:[id number] fentaNYL (PF) 2,500 mcg 290.4 168.970 In Sodium Chloride 0.9% 200 ml @ Per Protocol IV .Q0M [facility] Rx#:[id number] propofoL 1,000 mg In 385.8 287.12 92.16 Empty Bag 1 bag @ Per Protocol IV .Q0M [facility] Rx#: [id number] Tube Feeding 120 100 20 Other 90 60 30 Output: Urine 0 5 0 Hemodialysis 3000 Other: Voiding Method Indwelling Catheter Indwelling Catheter ABP, PAP, CO, CI - Last Documented Arterial Blood Pressure 114/63 - Exam GENERAL EXAM: Sedated, 35-year-old female patient, on assist control mode of ventilation , sedated, off paralyzed HEAD: Normocephalic/atraumatic. EYES: Normal reaction of pupils, equal size. Conjunctiva pink, sclera white. NOSE: Clear with pink turbinates. THROAT: No erythema or exudates. NECK: Right internal jugular hemodialysis catheter placed. Tracheostomy tube secured in place. The patient has Bivona #8. No masses, no JVD, no thyroid enlargement, no adenopathy. CHEST: No chest wall deformity. Symmetrical expansion. LUNGS: Equal air entry with bilateral crackles CVS: Regular rate and rhythm, normal S1 and S2, no gallops, no murmurs, no rubs ABDOMEN: PEG tube exit site clean and dry. No hepatosplenomegaly, normal bowel sounds, no guarding or rigidity. EXTREMITIES: No clubbing, no edema, no cyanosis, 2+ pulses and upper and lower extremities. MUSCULOSKELETAL: Muscle strength and tone normal. SPINE: No scoliosis or deformity SKIN: No rashes CENTRAL NERVOUS SYSTEM: Patient is sedated with propofol , being weaned off sedation - Labs CBC & Chem 7: 10/01/20 05:00 10/01/20 05:00 Labs: Abnormal Lab Results - Last 24 Hours (Table) 09/30/20 09/30/20 09/30/20 Range/Units 10:56 12:31 17:42 RBC (3.80-5.40) m/uL Hgb (11.4-16.0) gm/dL Hct (34.0-46.0) % RDW (11.5-15.5) % Lymphocytes # (1.0-4.8) k/uL ABG pH 7.30 L (7.35-7.45) ABG pCO2 48 H (35-45) mmHg ABG pO2 61 L (83-108) mmHg ABG Total CO2 25 H (19-24) mmol/L ABG O2 Saturation 89.0 L (94-97) % Sodium (137-145) mmol/L Carbon Dioxide (22-30) mmol/L BUN (7-17) mg/dL Creatinine (0.52-1.04) mg/dL Glucose (74-99) mg/dL POC Glucose (mg/dL) 112 H 135 H (75-99) mg/dL Total Bilirubin (0.2-1.3) mg/dL Total Protein (6.3-8.2) g/dL Albumin (3.5-5.0) g/dL 09/30/20 10/01/20 10/01/20 Range/Units 23:25 05:00 05:00 RBC 2.55 L (3.80-5.40) m/uL Hgb 7.3 L (11.4-16.0) gm/dL Hct 21.9 L (34.0-46.0) % RDW 15.6 H (11.5-15.5) % Lymphocytes # 0.7 L (1.0-4.8) k/uL ABG pH (7.35-7.45) ABG pCO2 (35-45) mmHg ABG pO2 (83-108) mmHg ABG Total CO2 (19-24) mmol/L ABG O2 Saturation (94-97) % Sodium 131 L (137-145) mmol/L Carbon Dioxide 19 L (22-30) mmol/L BUN 29 H (7-17) mg/dL Creatinine 3.93 H (0.52-1.04) mg/dL Glucose 106 H (74-99) mg/dL POC Glucose (mg/dL) 102 H (75-99) mg/dL Total Bilirubin 0.1 L (0.2-1.3) mg/dL Total Protein 4.7 L (6.3-8.2) g/dL Albumin 2.2 L (3.5-5.0) g/dL 10/01/20 10/01/20 Range/Units 05:03 05:10 RBC (3.80-5.40) m/uL Hgb (11.4-16.0) gm/dL Hct (34.0-46.0) % RDW (11.5-15.5) % Lymphocytes # (1.0-4.8) k/uL ABG pH (7.35-7.45) ABG pCO2 (35-45) mmHg ABG pO2 63 L (83-108) mmHg ABG Total CO2 (19-24) mmol/L ABG O2 Saturation 90.8 L (94-97) % Sodium (137-145) mmol/L Carbon Dioxide (22-30) mmol/L BUN (7-17) mg/dL Creatinine (0.52-1.04) mg/dL Glucose (74-99) mg/dL POC Glucose (mg/dL) 122 H (75-99) mg/dL Total Bilirubin (0.2-1.3) mg/dL Total Protein (6.3-8.2) g/dL Albumin (3.5-5.0) g/dL Microbiology - Last 24 Hours (Table) 09/29/20 00:06 Gram Stain - Preliminary Sputum Sputum Culture - Preliminary 09/28/20 09:45 Blood Culture - Preliminary Blood No Growth after 48 hours 09/28/20 09:45 Blood Culture - Preliminary Blood No Growth after 48 hours Assessment and Plan Plan: 1 Acute hypoxic respiratory failure secondary to COVID-19 pneumonia/ARDS, transferred to the intensive care unit on 09/11/2020 and intubated and placed on mechanical ventilator on 09/11/2020. Patient received 1 dose of Remdesivir on 09/11/2020, however based on her quick progression of her hypoxic respiratory failure she received Tocilizumab 800 mg on 09/11/2020. Tracheostomy and PEG tube placed on 09/18/2020. Morning, the patient is off paralytics. Propofol is being weaned off. She is off the fentanyl. She is showing signs of neurological recovery and some responsiveness. Chest x-ray has not been done from today. Nevertheless, the vent check was done and the blood gases was noted. Peak and static pressures have improved considerably.. 2 Acute kidney injury related to ATN, nephrology has been consulted, ultrasound of the kidneys showed no evidence of hydronephrosis. Patient was initiated on hemodialysis on 09/14/2020. Permacath placed 09/20/2020. Patient is undergoing daily dialysis. Session of hemodialysis was done yesterday. 3 Acute diabetic ketoacidosis, resolved sugar is still poorly controlled, the patient is currently on long-acting insulin in the patient's Levemir 25 units twice a day along with NovoLog 5 units 4 times a day. Blood sugars are still somewhat elevated. 4 Acute metabolic acidosis related to acute DKA, and acute kidney injury. Recovered . 5 Increased d-dimer, related to COVID-19 pneumonia, currently on 43 prophylaxis dose of 30 mg subcu every 24 hours 6 Possible sepsis with increased pro-calcitonin suggesting presence of bacterial infection, cultures have been sent and all negative 7 Diabetes mellitus type 2 8 Morbid obesity with BMI 45.3 kg/m 9 Nonsmoker Plan Dropped the PEEP to 10 and keep the tidal volume of 350. FiO2 of 50%. Check blood gases at noontime Gradually wean off sedation. I would allow the nursing staff to make her own titration to allow some degree of comfort and synchrony with the mechanical ventilator. The dialysis yesterday. No dialysis for today. Continue Decadron 4 mg IV every 24 hours Lovenox 30 mg subcu every 24 hours Continue enteral feeding for nutritional support D-dimer has been noted Continue Levemir insulin 25 units twice a day and keep the NovoLog 5 units every 6 hours along with a sliding scale coverage. We'll increase the maintenance Levemir dose if needed depending on her blood sugar control. Stool for C Diff negative Condition is critical we'll continue to follow make further recommendations based on her progress. This is a critically care evaluation that was on a more than 30 minutes. Time with Patient: Greater than 30
--- NOTE | 2020-10-01 09:45 | XR ---
EXAMINATION TYPE: XR chest 1V portable DATE OF EXAM: 10/01/2020 COMPARISON: Chest x-ray 09/30/2020 HISTORY: Shortness of breath TECHNIQUE: Single frontal view of the chest is obtained. FINDINGS: Findings are similar to prior exam. Right jugular central venous catheter, right-sided PIC C line, tracheostomy tube are overlying appropriate positions. Bilateral airspace disease is again se en. No evident pneumothorax. Heart is enlarged. Difficult to exclude basilar effusions. IMPRESSION: Findings similar to prior exam, correlate for pneumonia, edema, ARDS
--- NOTE | 2020-10-01 10:20 | P.PN ---
Progress Note - Text Progress Note Date: 10/01/20 Patient doing about the same today. She is tolerating her tube feeds. No issues with the function of the tracheostomy or PEG tube itself. Tracheostomy and PEG tube sites without evidence of bleeding or infection. Continue ventilatory weaning. Continue tube feeds at goal.
[2020-10-01] MEDS: fentaNYL (PF) 2,500 MCG in SODIUM CHLORIDE 0.9% 200 ML IV SCH ×2 (11:07→21:29)
--- NOTE | 2020-10-01 12:04 | P.PN ---
Subjective Progress Note Date: 10/01/20 35-year-old female patient of Dr. Arroyo with past medical history of type 2 diabetes comes in with acute shortness of breath associated with high light sugars. Patient on admission was found to have a fever of 101.5 pulse rate 125 respiratory rate 20. Blood pressure 132/106. On chest x-ray obtained in the ER suggestive of bilateral infiltrates concerning for call with pneumonia. COVID PCR was positive. On admissions patient had an ABG with a pH of 7.14 pCO2 of 20, pO2 of 59, bicarb of 7. Patient's blood sugar on admission was 424 on assessment today patient's blood work patient had a sodium 135 potassium 5.4 chloride 123 bicarb less than 5 and creatinine 0.73. D-dimer was elevated on admission patient 9 28 patient given 1 L of IV fluids followed by normal saline running at 200 mL/h. Patient was positive for acetone on admission. She will anion gap closed and was switched to D5NS. Insulin drip was continued during the night and was switched to patient's home medication this morning. One dose of remdesiver was ordered. Apparently around noon, A- team was called on the patient secondary to hypoxia patient's oxygen saturation dropped to the 70s and 80s on 100% nonrebreather. Patient was switched to BiPAP on 18/12 and is doing better o FiO2 of 80%. ABG was obtained and ph was 7. 14 pCO2 of 28 bicarb of 7 pO2 of 17. Patient noted to have uncompensated metabolic acidosis with compensated respiratory alkalosis. Stat dose of 1 amp bicarb was given and followed by sodium bicarbonate drip. Insulin drip restarted. Patient's initiated on dexamethasone 6 mg IV twice a d ay. Potassium phosphate ordered as phosphorus is low. Patient's repeat blood gases suggest a pH of 7.25, CO2 32 pO2 of 72 bicarb 14. I will not normal saline at 100 mL/h as patient's anion gap has increased. Patient given 1 dose of 2 mg of morphine with improvement in respiratory rate. One dose of Ativan 0.5 mg was given. Xanax 0.25 twice a day along with Ativan 0.5 IV every 6 hours ordered for the patient. Vitals were evaluated patient pulse 129 [id number]. She was moved to the ICU. Precedex drip was initiated. Lopressor was initiated at 25 twice a day. Metoprolol tartrate 5 mg IV every 6 hours. Systolic blood pressure more than 160. Started chest x-ray was obtained and suggest stable bilateral consolidation suggestive of COVID-19 pneumonia. 09/12 patient is seen in the ICU is currently mechanically ventilated and sedated on vent settings of respiratory rate 36, tidal volume 375 FiO2 80% PEEP of 18.. Vital signs reviewed patient had a temp of 100.4 pulse 150 respiratory rate 36 oxygen saturation 95% on 80% on fio2 .'s labs are reviewed which patient had a d-dimer 1.84 that is increased to 14.3. Arterial Blood gas suggest ph 7.35, CO2 40, po2 62, . Her BMP suggest a sodium 135 potassium 3.7 chloride 112 bicarb 21 creatinine 1.57 for calcitonin is 3.5 CRP is increased from 8.78.2 LDH is increased to 2614. Patient remains on Pneumovax, propofol drip. Lovenox increased to 50 subcu twice a day. Patient received 2 L of IV fluids. Continue IV fluids at 100 mL/h. Bicarb drip discontinued patient initiated on Zosyn 3.375 every 8 hours. Continue insulin drip at 4 units per hour. Patient is currently in prone positioning 09/13: Patient evaluated in the ICU remains on Ventilation continues to be sedated, in prone position. Vent settings are respiratory rate 36, tidal vital 375, FiO2 70% PEEP of 18. ABG shows pO2 of 82, PCO2 of 39, pH is 7.19. Latest labs show WBC 11.1, hemoglobin 13.2, d-dimer still pending, but yesterday was up to 14.3. Creatinine up to 3.4, BUN 24 sodium 137, potassium 4.0. Patient's urine output has been low, nephrology on consult. Bicarb drip increased to 100 miles an hour, receiving another liter of normal saline, she did have a ultrasound that showed unremarkable bilateral kidneys. Repeat chest x-ray showed bilateral lung infiltrates that are stable. Anion gap has closed, will start Lantus 10 units at at bedtime Novolog every 6 hours. 09/14: Patient is seen in the ICU, still currently mechanically ventilated and sedated. She continues in the prone position. Her oxygen quickly drops if she is not in prone. Patient's kidney function has worsened. Laboratory values show creatinine of 4.87, BUN 33, LDH 2191, C-reactive protein 2.7. ABG shows pH 7.32, pO2 of 60, pCO2 43. Patient is making almost no urine overnight. Nephrology is following patient continues on cefepime for urinary tract infectio n, culture is still pending. Vascular has been consulted for placement of temporary hemodialysis catheter for plans for dialysis. 09/15: Patient evaluated in the ICU, continues to be mechanically ventilated and sedated on assist control ventilation rate of 36, tidal volume 375, FiO2 100% and PEEP of 18. ABG today shows pO2 58, pCO2 of 45, and pH 7.35. She continues on tube feedings. Yesterday patient underwent ultrasound-guided right internal jugular non-tunneled hemodialysis catheter placement. Patient underwent hemodialysis treatment last night and plans have another hemodialysis treatment today. She continues to make almost no urine. She continues on cefepime for antibiotic coverage, and continues on Decadron and Lovenox. 09/16: Patient seen on follow-up remains in the ICU mechanically ventilated and sedated. She continues on assist control rate of 36, tidal volume 375, FiO2 10 0% and PEEP of 20. PEEP had to be increased due to patient had to be in supine position for dialysis, will go back to prone position once dialysis is complete. ABG shows pH 7.32, pCO2 49, PaO2 61. Laboratory values showed WBC 11.2, hemoglobin 11, sodium 134, creatinine 4.44, BUN 38. Urine culture shows no growth, blood cultures show no growth to date. Repeat chest x-ray shows bilateral pleural effusions, correlate for ARDS, pulmonary edema, diffuse pneumonia, findings are stable from last exam. Patient does not require any pressors, blood pressure 133/57, heart rate 78. 5/16: Patient was evaluated in the ICU today for follow-up. She continues to be intubated and on mechanical ventilation. Current vent settings are tidal volume 375, FiO2 100% and PEEP of 20. ABG shows pH 7.37, pCO2 40, pO2 102. She continues with intermittent prone positioning. Patient continues to have almost no urine output, maintained on dialysis. Patient received dialysis yesterday without complication. Laboratory values revealed WBC 10.3, hemoglobin 10.4, sodium 132, potassium 3.1, BUN 33, creatinine 4.29, LDH 1913, C-reactive protein 1.3. Urine and sputum cultures are negative, blood cultures show no growth to date. Consult placed to dietary to start TPN[ ] 09/18: She remains in the intensive care unit intubated and on mechanical ventilation with tidal volume 375, FiO2 60 and PEEP of 20. Patient is being prone to daily at approximately 16 hours per day. Pulmonary medicine has added in Dr. Zhang to do PEG tube and trach today. Patient is not on vasopressors. Repeat blood work reveals WBC 12.6, hemoglobin 9.8, platelet count 212. Sodium 133, potassium 3.2, chloride 102, CO2 21, BUN 35 and creatinine 4.12. Blood sugar 126. Patient underwent hemodialysis yesterday with removal of 2 L and is scheduled again today with goal of 2-3 L and is scheduled again tomorrow. 09/19: She is scheduled for hemodialysis today and is off fentanyl temporarily. Patient is status post trach and PEG tube yesterday. And she remains on mechanical ventilation. Pulse ox 93-95%. She has been afebrile, heart rate 64, respiratory rate 36, blood pressure 115/50. Fentanyl is off to improve blood pressure for hemodialysis which is scheduled for today. Contacted vascular surgery about permanent hemodialysis catheter. Repeat blood work reveals WBC 14.3, hemoglobin 9.6, platelet count 200. D-dimer 6.48. LDH 1686. C-reactive protein 1.1. BUN 34 creatinine 3.81. Sodium 130, potassium 3.5, chloride 101, CO2 18. Blood sugars running between 101 198. Plan is to wean off Pneumovax today. Patient remains on insulin drip. Repeat chest x-ray reveals bilateral multifocal confluent opacities consistent with COVID-19. Some improved aeration periphery of the left lung and worsening opacities throughout the right lung. 09/20: She remains in the intensive care unit on mechanical ventilation. She has been afebrile, heart rate 65, respiratory rate 37, blood pressure 121/70, pulse ox 91-99%. Repeat blood work reveals WBC 14.5, hemoglobin 9.1, platelet count 216. D-dimer 6.13. Sodium 133, potassium 3.1, chloride 102, CO2 18, BUN 35 and creatinine 4.27. Blood sugars running between 128 and 143. LDH 1717. C- reactive protein 1.7. Patient remains on insulin drip which will be transit ioned to NovoLog scale every 6 hours. Patient is scheduled for permanent hemodialysis catheter placement today with vascular surgery. Repeat chest x-ray reveals stable diffuse bilateral interstitial and airspace disease. Possible small right effusion. His work is following for transfer to residential care facility. Do not anticipate discharge until next week. 09/21: Patient is undergoing hemodialysis. She remains on mechanical ventilation with tidal volume 375, FiO2 down to 45 and PEEP was decreased to 15. Patient is continued on propofol, fentanyl drips. She is on tube feedings at goal. Patient was taken off insulin drip yesterday and on scale only but blood sugars are running in the 200s, Levemir scheduled at bedtime will be added. Other blood work reveals WBC 13.3, hemoglobin 8.7, platelet count 192. Sodium 137, potassium 3.6, chloride 107, CO2 18, BUN 34 and creatinine 4.21. Repeat chest x-ray is stable. 09/22: She remains in the intensive care on mechanical ventilation with tidal volume 375, FiO2 of 50 and PEEP of 10. Pulse ox is running 96%. She is afebrile, heart rate in the 50s, respiratory rate 36, blood pressure 100/64. Repeat blood work reveals WBC 16.5, hemoglobin 8.9, platelet count 213. Sodium 134, potassium 3.7, chloride 103, CO2 21, BUN 34 and creatinine 3.89. Blood sugars running in the 200s to 324. Levemir increased to 16 units at bedtime and continue NovoLog scale every 6 hours. Patient is on tube feedings at goal. She has a Haley catheter in with a scant amount of dark/brown urine. Fecal management system is in place. Repeat chest x-ray reveals diffuse bilateral airspace infiltrates persist unchanged. Patient is scheduled for hemodialysis tomorrow morning on Friday. 09/23: Patient remains on mechanical ventilation with tidal volume 3.75, FiO2 50 and PEEP of 10. outpatient therapist sinus rhythm. She has no urine output. Fecal management system is in place. She is undergoing dialysis at this time with plan for removal of 2-1/2 L. She has been afebrile, heart rate in the 50s, respiratory rate 36, blood pressure 108/76 and pulse ox 89%. WBC 13.6, hemoglobin 9.1, platelet count 194. Sodium 136, potassium 3.0 and was replaced, chloride 106, CO2 21, BUN 49 creatinine 5.31. Blood sugars are running between 182 and this morning 194. Patient was still in the 200s and 300s. Levemir last evening was increased to 16 units. Patient remains on propofol and fentanyl drips. Lovenox was increased to 60 mg twice daily. 09/24: PEEP was increased today to 20, tidal volume is at 375 and FiO2 of 50%. Patient has been afebrile. She has been started on levo fed. Repeat chest x- ray reveals bilateral multifocal confluent opacities consistent with Covid 19 or ARDS redemonstrated. Nephrology will plan dialysis for tomorrow for 3 L. Patient remains on propofol fentanyl and Nimbex. WBC 12.5, hemoglobin 9.8, platelet count 161. D-dimer 13.3. Sodium 132, potassium 3.4, chloride 102, CO2 20, BUN 48 and creatinine 4.67. Blood sugars extremely elevated to 96-409. LDH 2217. 09/25: Patient remains in the intensive care unit on mechanical ventilation with tidal volume 375, FiO2 50 and PEEP of 20. Patient is afebrile, heart rate 61, respiratory rate 36, blood pressure 102/56, pulse ox 97%. Repeat blood work reveals WBC 9.3, hemoglobin 8.5 and platelet count 171. Sodium 130, potassium 3.7, chloride 100, CO2 20, BUN 61 creatinine 5.65. Blood sugars have been elevated up to 455. Levemir increased to 20 units twice daily, NovoLog 5 units every 6 hours and continue NovoLog scale. Patient is scheduled for hemodialysis today. Repeat chest x-ray reveals bilateral multifocal and confluent opacities. Decadron and Lovenox dosing change by pulmonary. Patient is off norepinephrine. 09/26: Patient remains in the intensive care unit on mechanical ventilation with tidal volume 375, FiO2 50 and PEEP of 15. She has been afebrile, heart rate 91, blood pressure 114/68, pulse ox 99%. outpatient therapist sinus rhythm. 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 Sodium 134, potassium 3.6, chloride 102, CO2 22, BUN 41 creatinine 4.21. Patient has improved blood sugars this morning running 150s and 160s. Diabetic medications were adjusted yesterday. Patient is awake and alert and interacting. Yesterday, patient had PICC line inserted by interventional radiology. Repeat chest x-ray reveals diffuse airspace infiltrates in both lung ann appear to progress slightly in the interval. 09/27: Patient remains in intensive care unit on mechanical ventilation with improvement of settings with tidal volume 375, FiO2 decreased to 40 and PEEP decreased to 10. Patient is on hemodialysis every other day and plan to remove 3 L today. Patient is more awake and alert. She is slow to respond but is able to follow simple commands. Blood sugars are running between 84 and 123. Repeat blood work reveals WBC 7.1, hemoglobin 8.1, platelets 152. Sodium 135, potassium 3.6, chloride 103, CO2 21, BUN 53 and creatinine 5.88. Repeat chest x-ray revealed cardiomegaly and pulmonary edema. Patient is on tube feedings:. Patient is not require vasopressors and is off sedation. Fecal management system remains in place for brown liquid stool. C. difficile was negative. 09/28: Patient remains on mechanical ventilation with tidal volume 375, FiO2 increased to 80 and PEEP increased to 18. Patient had a rough night was very anxious, no pain. Xanax 0.25 mg 3 times daily was added. There is concern for pulmonary embolism for which patient was started on heparin drip, she is unable to undergo CAT scan. Venous Doppler bilateral lower extremities was nondiagnostic due to extensive edema in obese patient but minimal imaging of the popliteal veins does show flow. Repeat echocardiogram has been ordered. Cefepime has also been ordered at 1 g IV piggyback every 24 hours as well as vancomycin, pharmacy dosing. Patient is back on fentanyl drip, propofol drip and norepinephrine. Blood sugars are elevated and insulin Levemir will be increased to 25 mg twice daily. Ferrlecit infusion has been ordered by nephrology for 4 days. Patient is undergoing hemodialysis today.temperature max 100.2, heart rate 134, respiratory rate 34, blood pressure 120/65, pulse ox 94%. outpatient therapist is sinus tachycardia. Repeat blood work reveals WBC 16.9, hemoglobin 9.7, platelet count 216. D-dimer 8.81. Sodium 134, potassium 3.8, chloride 99, CO2 25, BUN 43 and creatinine 5.36. Blood sugars in the 200s. AST 40. 09/29 Patient had declined more last 48 hours require more sedation, patient is doing hemodialysis, respiratory failure is quite bit worse this time. Patient was inquired the pain is well back on fentanyl drip. Her vent set up with PEEP is limited but higher. No new finding on culture and her chest x-ray continues shows diffuse infiltrate persistent although there is a moderate interval improvement. patient's was seen and evaluated. PEEP was reduced to 11 as patient is maintaining good saturation at the current vent settings. patient was seen at bedside. She is currently on assist control rate of 28 white tidal volume 350 FiO2 50% and PEEP of 10 which has been reduced by pulmonary as patient name cleaning her oxygen saturation. Arm blood gas was ob tained with a pH of 7.35 pCO2 37 pO2 of 63. She remains hemodynamically stable with no need for pressors. Labs were reviewed patient's BUN is 29 creatinine 3.93 glucose 122 albumin 2.2 sodium 131 chloride 19 hemoglobin is downtrending with a Hb of 7.3 no leukocytosis 7.1. Patient's urine output is minimal at this time. Her rate has increased to 129 and is currently on positive fluid balance even with dialysis. Last dialysis was done yesterday. Continue enteral feeding currently at goal. Antibiotic has been discontinued and continues to remain on DEXA methicillin 4 mg IV daily. REVIEW OF SYSTEMS Unable to obtain due to mechanical ventilation. Objective - Vital Signs Vital signs: Vital Signs Temp 98.9 F 10/01/20 08:00 Pulse 103 H 10/01/20 11:00 Resp 35 H 10/01/20 11:00 BP 112/55 10/01/20 11:00 Pulse Ox 90 L 10/01/20 11:00 Intake & Output 09/30/20 10/01/20 10/01/20 18:59 06:59 18:59 Intake Total 1294.164 869.090 400.990 Output Total 3000 5 0 Balance -1705.836 864.090 400.990 Weight 129.1 kg 129.1 kg Intake: IV 299 253 115 0.9 Normal Saline @ KVO 260 220 100 0.9 Normal Saline 39 33 15 Pressure Bag Intake, IV Titration 785.164 456.090 215.990 Amount Cisatracurium 200 mg In 108.72 Sodium Chloride 0.9% 180 ml @ 1 MCG/KG/MIN 7.2 mls /hr IV .Q24H [facility] Rx#: [id number] Norepinephrine 8 mg In 0.244 Sodium Chloride 0.9% 250 ml @ 0.05 MCG/KG/MIN 11. 61 mls/hr IV .[id number] [facility] Rx#:[id number] fentaNYL (PF) 2,500 mcg 290.4 168.970 23.830 In Sodium Chloride 0.9% 200 ml @ Per Protocol IV .Q0M [facility] Rx#:[id number] propofoL 1,000 mg In 385.8 287.12 192.16 Empty Bag 1 bag @ Per Protocol IV .Q0M [facility] Rx#: [id number] Tube Feeding 120 100 40 Other 90 60 30 Output: Urine 0 5 0 Hemodialysis 3000 Other: Voiding Method Indwelling Catheter Indwelling Catheter Indwelling Catheter ABP, PAP, CO, CI - Last Documented Arterial Blood Pressure 104/53 - Exam Physical exam restricted due to COVID 19 - Constitutional General appearance: cooperative, tracheostomy in place and sedated,supine - Neck Neck: normal ROM - Respiratory Respiratory: bilateral decreased air entry. Minimal chest retractions noted - Cardiovascular Rhythm sinus tachycardia Heart sounds: normal: S1, S2 - Gastrointestinal General gastrointestinal: Nondistended PEG tube in place and dry fecal management system in place with brown stool - Integumentary Integumentary: no rash no pedal edema no calf tenderness - Neurologic Neurologic: No gross motor deficit - Musculoskeletal Musculoskeletal: Sedated - Psychiatric Psychiatric: Sedated - Labs CBC & Chem 7: 10/01/20 05:00 10/01/20 05:00 Labs: Abnormal Lab Results - Last 24 Hours (Table) 09/30/20 09/30/20 09/30/20 Range/Units 12:31 17:42 23:25 RBC (3.80-5.40) m/uL Hgb (11.4-16.0) gm/dL Hct (34.0-46.0) % RDW (11.5-15.5) % Lymphocytes # (1.0-4.8) k/uL ABG pO2 (83-108) mmHg ABG O2 Saturation (94-97) % Sodium (137-145) mmol/L Carbon Dioxide (22-30) mmol/L BUN (7-17) mg/dL Creatinine (0.52-1.04) mg/dL Glucose (74-99) mg/dL POC Glucose (mg/dL) 112 H 135 H 102 H (75-99) mg/dL Total Bilirubin (0.2-1.3) mg/dL Total Protein (6.3-8.2) g/dL Albumin (3.5-5.0) g/dL 10/01/20 10/01/20 10/01/20 Range/Units 05:00 05:00 05:03 RBC 2.55 L (3.80-5.40) m/uL Hgb 7.3 L (11.4-16.0) gm/dL Hct 21.9 L (34.0-46.0) % RDW 15.6 H (11.5-15.5) % Lymphocytes # 0.7 L (1.0-4.8) k/uL ABG pO2 (83-108) mmHg ABG O2 Saturation (94-97) % Sodium 131 L (137-145) mmol/L Carbon Dioxide 19 L (22-30) mmol/L BUN 29 H (7-17) mg/dL Creatinine 3.93 H (0.52-1.04) mg/dL Glucose 106 H (74-99) mg/dL POC Glucose (mg/dL) 122 H (75-99) mg/dL Total Bilirubin 0.1 L (0.2-1.3) mg/dL Total Protein 4.7 L (6.3-8.2) g/dL Albumin 2.2 L (3.5-5.0) g/dL 10/01/20 Range/Units 05:10 RBC (3.80-5.40) m/uL Hgb (11.4-16.0) gm/dL Hct (34.0-46.0) % RDW (11.5-15.5) % Lymphocytes # (1.0-4.8) k/uL ABG pO2 63 L (83-108) mmHg ABG O2 Saturation 90.8 L (94-97) % Sodium (137-145) mmol/L Carbon Dioxide (22-30) mmol/L BUN (7-17) mg/dL Creatinine (0.52-1.04) mg/dL Glucose (74-99) mg/dL POC Glucose (mg/dL) (75-99) mg/dL Total Bilirubin (0.2-1.3) mg/dL Total Protein (6.3-8.2) g/dL Albumin (3.5-5.0) g/dL Microbiology - Last 24 Hours (Table) 09/29/20 00:06 Gram Stain - Final Sputum Sputum Culture - Final 09/28/20 09:45 Blood Culture - Preliminary Blood No Growth after 48 hours 09/28/20 09:45 Blood Culture - Preliminary Blood No Growth after 48 hours Assessment and Plan Plan: 1. Acute hypoxic respiratory failure secondary to Covid 19 pneumonia and possible bacterial pneumonia. Patient was intubated on September 11. She is status post 1 dose of Remdesivir and 1 dose of Tocilizumab. Continue Ventolin inhaler 4 times daily, Symbicort twice daily, Decadron 4 mg IV daily, Lovenox 30 mg subcu daily, supplements. Status post PEG tube and trach. Off antibiotics still seen infectious disease, and pulmonary, patient remained stable. Continue dialysis to help with 1-year-old 2. Acute kidney injury secondary to ATN secondary to Covid 19 and DKA. Patient continued on hemodialysis. Permanent dialysis catheter placed. patient is doing dialysis almost on daily basis. Last dialysis on 04/23 3. Metabolic encephalopathy secondary to Covid 19 and DKA.significant declining condition. Sedation holiday was given and patient was noted to be responding appropriately 4. Sepsis and septic shock secondary to Covid 19 pneumonia. Continue as in #1. 5. Acute metabolic acidosis secondary to acute DKA, Covid 19 and acute kidney injury. 6. Diabetes mellitus type 2 uncontrolled with A1c 13.6. continue intense diabetic management and insulin. 7. electrolyte imbalance: Post correction of hypophosphatemia 8. hypertension: Blood pressure slightly bit low at this point patient remain on metoprolol IV and per PEG tube. 9. Sinus tachycardia secondary to sepsis, volume deficiency.Continue Lopressor 25 mg twice daily. 10. type 2 diabetes on insulin with presentation with diabetic ketoacidosis secondary to COVID-19 altercation, patient remain on Levemir 20 units twice a day along with schedule NovoLog 8 units before meals meals and keep titrating the dose. 11. Possible acute gram-negative pneumonia versus MRSA pneumonia. Patient has been started on cefepime and vancomycin. 12. Morbid obesity with BMI of 53. 13. DVT prophylaxis. Lovenox. 14. GI prophylaxis. Protonix 40 mg IV push daily. CODE STATUS: Full code Prognosis guarded.
[2020-10-01 12:07] LABS: Glucose,Whole Blood 116 mg/dL (75-99)
[2020-10-01 12:13] LABS: ABG Base Excess -6.1 mmol/L; ABG HCO3 20 mmol/L (21-25); ABG Oxygen Saturation 88.2 % (94-97); ABG PCO2 38 mmHg (35-45); ABG PH 7.32 (7.35-7.45); ABG PO2 60 mmHg (83-108); ABG TCO2 21 mmol/L (19-24)
[2020-10-01 12:15] LABS: Allen Test Performed? no
--- NOTE | 2020-10-01 12:32 | PN ---
PROGRESS NOTE The patient is seen for followup for acute kidney injury mostly acute tubular necrosis, currently dialysis dependent. The patient has been receiving more frequent dialysis mostly for volume overload. We have had about 3 L of fluid removed with every treatment. This morning, patient is on the vent. Sedation has been held. PHYSICAL EXAMINATION: Blood pressure 112/52. Heart rate 108 per minute. She is afebrile. Examination shows 1+ edema upper and lower extremities. Abdomen is soft, nontender. The patient did open her high eyes to verbal stimuli. LAB: Reviewed. Sodium 131, potassium 3.8, BUN 29, serum creatinine 3.93, hemoglobin 7.3 g/dL. ASSESSMENT: 1. Acute kidney injury, acute tubular necrosis, currently oliguric and dialysis dependent. We will plan for dialysis tomorrow. 2. Metabolic acidosis, currently improved. 3. Hyperphosphatemia, maintained on Renvela. 4. Acute hypoxic respiratory failure secondary to ARDS. 5. COVID pneumonia. 6. Metabolic acidosis currently improved, maintained on oral sodium bicarb. PLAN: Repeat hemodialysis in a.m. Goal UF 2.5-3 L as tolerated. MMODL / IJN: [id number] /
[2020-10-01 18:18] LABS: Glucose,Whole Blood 175 mg/dL (75-99)
[2020-10-01 23:53] LABS: Glucose,Whole Blood 147 mg/dL (75-99)
[2020-10-02] MEDS: ARTIFICIAL TEARS OINTMENT 3.5 GM TUBE BOTH EYES SCH ×6 (00:05→20:28)
[2020-10-02] MEDS: INSULIN ASPART (NovoLOG) 100 UNIT/ML VIAL SQ SCH ×8 (00:07→18:03)
[2020-10-02 04:50] LABS: ABG Base Excess -8.4 mmol/L; ABG HCO3 18 mmol/L (21-25); ABG Oxygen Saturation 90.3 % (94-97); ABG PCO2 37 mmHg (35-45); ABG PO2 66 mmHg (83-108); ABG TCO2 19 mmol/L (19-24); Allen Test Performed? Yes
[2020-10-02 05:29] LABS: Anisocytosis Slight; Basophils % (A) 0 %; Eosinophils # (A) 0.6 k/uL (0-0.7); Eosinophils % (A) 9 %; HCT 22.6 % (34.0-46.0); HGB 7.2 gm/dL (11.4-16.0); Hypochromasia Moderate; Lymphocytes # (A) 0.7 k/uL (1.0-4.8); Lymphocytes % (A) 10 %; MCH 27.5 pg (25.0-35.0); MCV 85.8 fL (80.0-100.0); Mean Platelet Volume 8.2; Monocytes # (A) 0.3 k/uL (0-1.0); Monocytes % (A) 4 %; Neutrophils # (A) 4.9 k/uL (1.3-7.7); Neutrophils % (A) 74 %; Platelet Count 203 k/uL (150-450); Poikilocytosis Slight; RBC 2.64 m/uL (3.80-5.40); RDW 16.2 % (11.5-15.5); WBC 6.7 k/uL (3.8-10.6)
[2020-10-02 06:01] LABS: Albumin 2.4 g/dL (3.5-5.0); C Reactive Protein 6.7 mg/dL (<1.0); Calcium 9.1 mg/dL (8.4-10.2); Potassium 3.9 mmol/L (3.5-5.1); Total Bilirubin 0.1 mg/dL (0.2-1.3)
[2020-10-02 06:03] LABS: Glucose,Whole Blood 151 mg/dL (75-99)
[2020-10-02] MEDS: SEVELAMER 800 MG TAB PO SCH ×3 (06:21→16:45)
[2020-10-02] MEDS: INSULIN DETEMIR (LEVEMIR) 100 UNIT/ML SYR SQ SCH ×2 (06:22→20:28)
[2020-10-02] MEDS: fentaNYL (PF) 2,500 MCG in SODIUM CHLORIDE 0.9% 200 ML IV SCH ×2 (07:23→18:00)
--- NOTE | 2020-10-02 07:33 | XR ---
EXAMINATION TYPE: XR chest 1V portable DATE OF EXAM: 10/02/2020 COMPARISON: Chest x-ray 10/01/2020 HISTORY: Shortness of breath TECHNIQUE: Single frontal view of the chest is obtained. FINDINGS: Bilateral airspace disease is again noted, there is a right-sided PICC line and central ve nous catheter are stable, tracheostomy tube is overlying appropriate position. There is no evident pn eumothorax or sizable effusion. Cardiac mediastinal silhouette is stable. IMPRESSION: Essentially stable findings, correlate for pneumonia, edema, ARDS
[2020-10-02] MEDS: ALBUTEROL HFA INHALER INHALATION SCH ×4 (07:49→22:41)
[2020-10-02] MEDS: SYMBICORT 160-4.5 MCG INHALER INHALATION SCH ×2 (07:49→22:41)
[2020-10-02] MEDS ORDERED: SODIUM BICARB 8.4% 50 ML SYR (1 MEQ/ML) IV STA (08:45)
--- NOTE | 2020-10-02 08:45 | P.PN ---
Subjective Progress Note Date: 10/02/20 On 09/25/2020, the patient is being seen in follow-up in the intensive care unit. For now, the patient remains in respiratory failure, remains intubated on a mechanical ventilator. She is post, respiratory failure secondary to COVID-19 related to pneumonia with secondary ARDS. The patient remained on assist control mode at the rate of 36 and a tidal volume of 375 and FiO2 of 50% with a PEEP of 20. The peak air pressure was 43. The static pressure was 37. The blood gases from today showed a pH of 7.33 with a pCO2 of 38 and pO2 of 95. Chest x-ray still consistent with diffuse bilateral pulmonary infiltrates with bilateral multifocal and confluent opacities consistent with COVID-19 related pneumonia/ARDS. The patient has been on steroids or along the patient is still on Decadron 6 mg IV every 24 hours. The patient is also on Lovenox 60 mg subcu every 12 hours. She is requiring norepinephrine infusion low-dose of 0.01 mcg/kg per minute. She remains in renal failure. Creatinine today is at 5.65 with a BUN of 61. The net fluid balance is been +38 mL over the past 24 hours. The patient's last hemodialysis session was on 09/23/2020 with a total of 2.5 L of fluids was removed and the patient is scheduled to have another session of hemodialysis today. The patient this morning is sedated with propofol running at 50 mcg/kg per minute. Nevertheless, despite that, she is arousable and she opens her eyes spontaneously. Doesn't follow commands consistently. Her white cell count is at 9.3 with a hemoglobin of 8.5 blood sugars remain elevated and the patient is on Levemir insulin 20 units twice a day and the patient is also started on lower log 5 units every 6 hours [id number] plus a signs good coverage. The patient continues to receive enteral feeds and the patient is currently on vital high protein at the rate of 45 mL an hour. IV fluids with normal saline at the rate of 20 mL an hour. The patient is afebrile. No other significant issues overnight for now. 5 2020, ration remains on a mechanical ventilator. There is a case of COVID-19 related pneumonia/ARDS. This morning, the patient has been on assist-control at the rate of 28 with a tidal volume of 375 and FiO2 of 50% and a PEEP of 15. The peak air pressure is 37 and the plateau airway pressure is 31. The blood gas showed a pH of 7.41 with a pCO2 of 38 and pO2 of 73. Chest x-ray is showing the pulmonary infiltrates. The patient has a hemodialysis catheter in her right IJ. The pulmonary infiltrates are essentially the same probably slightly improved compared to yesterday. Note that the patient also has dialysis-dependent renal failure. She is being dialyzed periodically. Her last session of hemodialysis was yesterday where a total of 3.3 of fluid was removed without any major diffi culties or hemodynamic instability. The patient otherwise is awake. She is off sedation. She is watching television. She is following simple commands. Her blood work shows a white cell count of 8.5 with a stable hemoglobin of 9. Platelets is at 169. D-dimer was lower at 4.57. Albumin is at 41 with a creatinine of 4.2. No electrolyte abnormalities or disturbances at this point in time. She is receiving enteral feeding for nutritional support via PEG tube. She is receiving his vital high protein at the rate of 31 mL an hour. She is producing adequate stool which is in the form of the diarrhea and the patient has a fecal management system in place. Output is in the order of 200-300 mL on a daily basis. She has been on Lovenox 40 mg subcu on a daily basis. The patient is also on Decadron 4 mg IV every 24 hours. She is on no antibiotics for now. IV fluids are running at 20 mL an hour of normal saline. She is afebrile. She is hemodynamically stable. No other significant events over the past 24 hours. She is been off propofol for the past 3 hours. 09/27/2020, the patient is awake off propofol. She is recovering from COVID-19 related pneumonia/ARDS. Responsive and the patient is awake and alert and she is following commands. Her chest x-ray from today is remaining unchanged with diffuse bilateral pulmonary infiltrates. Tracheostomy tube is in a good location. Meanwhile, the patient remains on a mechanical ventilator essentially on the same setting which includes a rate of 28 with a tidal volume of 375 and FiO2 of 40% and PEEP has been drop down to 10 and the blood gas shows a pH of 7.41 with a pCO2 of 35 and pO2 of 74. She is resting comfortably. Respiratory rate currently is at 34 and the patient is obviously less tachypneic compared to yesterday. She is undergoing periodic dialysis. Her last dialysis was on 09/25/2020 and the patient is undergoing dialysis today. The patient remains hemodynamically stable. She is moving all 4 extremities. She has generalized global weakness which is quite expected because of prolonged respiratory failure and prolonged ICU stay. She is receiving enteral feeding for nutritional support and she is on vital high protein at the rate of 45 mL an hour. Urine output is in the order of 5 mL an hour. Her electrolytes show a sodium of 135, potassium of 3.6, BUN is up 53 with a creatinine of 5.8. The patient has a white cell count 7.1 and hemoglobin of 8.1. The patient otherwise is hemodynamically stable. The patient is off sedation. The patient is able to move her extremities and there is no focal neurological deficit at this point in time. She is doing slow an ongoing progress for now. She is still having some loose liquidy diarrhea. Stool for C. diff has been negative. 09/28/2020, the patient has decompensated. As of midnight yesterday, the patient stated that she was not feeling well. She clearly communicated this with the nurses. Subsequently, she became more tachypneic and short of breath while on a mechanical ventilator and she began progressively hypoxic more confused and more restless and agitated. At that point, I initially started on Precedex. I increased the PEEP knowing that the patient was having ongoing hypoxemia while on the mechanical ventilator. Nevertheless, the patient was not responding and she continued to be having worsening and hypoxemia. At that p oint, she was started back comfortable for which is currently running at 75 mcg/kg per minute. She is fully sedated for now. She is back on a mechanical ventilator in the PEEP is currently up to 18 with a tidal volume of 375 and the rate of 28 and FiO2 of 100%. Note that the blood gases earlier prior to this change showed a pH of 7.29 with a pCO2 of 50 and pO2 of 37 and this was done while on a FiO2 of 90% with a PEEP of 6. The chest x-ray showing diffuse bilateral airspace disease system with ARDS. At that point, a workup was initiated regarding her hypoxemia. Doppler of the lower extremity was done and the results were negative. Noted the patient was already on Lovenox. Nevertheless, due to my concern of pulmonary embolism, I put the patient IV heparin. The d-dimer was repeated and the level came back at 8.8 with a slightly higher compared to yesterday. I also give the patient, addition of antibiotics including cefepime and vancomycin. Cultures are still pending. White cell count is up to 16.9. Pneumonia is considered although I'm not absolutely certain about this diagnosis. Meanwhile, the patient was asked to undergo another session of hemodialysis. Currently she is running a dialysis right now with an ultrafiltration of around goal. Echocardiogram was also ord ered. Her current pulse ox 97%. The patient exercises monitoring elevation of PEEP and sedation. The patient will have a follow-up blood gas done post dialysis the necessity ventilator changes will be done. Haley cath is in place. Urine output is minimal in the order of 20 disease over the past 12 hours. Note that her weight has been stable and there is no signs of any major volume change. She remains overloaded in terms of fluid in general. She has a PEG tube. Enterofeeding is still being continued with vital high protein at the rate of 51 mL an hour. Rest of the electrolytes are normal. Serum bicarb is 25. BUN is at 43 with a creatinine of 5.36. LFTs are normal. 09/29/2020, the patient remains sedated and paralyzed. I had to paralyze her yesterday as the patient was quite asynchronous a mechanical ventilator and she was peak pressuring significantly. As such, she is maintained on a combination of propofol which is running at 60 mcg/kg per minute and the patient is also o at 2 mcg/kg per minute and fentanyl at 2 mcg/kg/h. She is quite successful mechanical ventilator. Nevertheless, earlier this morning and overnight the pressures both at peak and static have been quite elevated with a peak airway pressure of 54 anesthetic at a pressure of 49. Based on that, and the morning evaluation, I dropped his tidal volume down to 350 and I also doubt the PEEP down to 15. Prior to that, the patient was on a PEEP of 18 with an FiO2 of 60% and a tidal volume of 375 with a rate of 28 and her blood. This was showing a pH of 7.28 with a pCO2 of 50 and pO2 of 86 to chest x-ray shows improvement in the left lung consolidation. The patient has a tracheostomy tube in place. Note that the patient is undergoing hemodialysis at this point in time with a goal of 3.3 L of ultrafiltration. Hemodynamically she is requiring pressors and she is currently on norepinephrine infusion at 0.09 macrovascular kilogram per minute. We are the process of weaning the pressors down as the patient's blood pressure could handle being weaned off the pressors. Meanwhile, she continues to receive enteral feeding for nutritional support with vital AF, at 10 mL an hour. She is able to tolerate the enteral feeding. In terms of her blood work, her white cell count that 0.6 with a hemoglobin of 8.2. The BUN is a 37 with a creatinine of 4.7 the sodium level is 133. Doppler of the lower extremity was negative and the echocardiogram showed a preserved LV function with an ejection fraction of 55-60%. There was severe concentric LVH. Mild pulmonary hypertension with a PA pressure of 41 mmHg. No valvular abnormalities. No RV dysfunction. Sputum culture has been negative. Urine cultures been negative. Blood culture has been also negative. We have her on IV cefepime and vancomycin as broad-spectrum antibiotic coverage. 2020, the patient remains paralyzed and sedated. This morning, she is on a combination of poor before running at 3 mcg/kg per minute and she is also on fentanyl at 2 mcg/kg/h and the patient is also Nimbex at 2 mcg/kg per minute. The patient compatible to yesterday. She remains on a mechanical ventilator. She is an assist-control mode at the rate of 28 with a tidal volume of 350 and FiO2 of 50% with a PEEP of 13. Peak airway pressure is 41, static pressures 37. Chest x-ray showing diffuse breath and pulmonary infiltrates consistent with ARDS. Tracheostomy tube is in place. No evidence of leak around the tracheostomy tube. The blood gases from today shows a pH of 7.28 with a pCO2 of 49. CO2 was 60. Overall hemodynamics is essentially stable with some requirements of norepinephrine infusion and norepinephrine is currently running at 0.02 macrovascular kilogram per minute and this is needed while the patient is undergoing daily dialysis with ultrafiltration. In fact, the patient is in the process of undergoing dialysis this morning with a goal of 3.3 L of ultrafiltration. She has been handling dialysis without any major difficulties. No fever. Her cultures have been negative. She was covered with broad-spectru m antibiotics and I think it's reasonable to these correlate with antibiotics and stop. She has a preserved LV function on the echocardiogram. Cultures of been all negative. She is receiving enteral feeding for nutritional support and she is able to tolerate that without any major difficulties. No other significant events overnight. Cardiac rhythm is sinus. Her labs show a white cell count of 7.6 with a stable hemoglobin of 7.9. Her d-dimer is at 3.6. Rest of the blood work and electrolytes shows a creatinine of 3.75 and a sodium level of 134. Total protein is at 5.1 with albumin of 2.6. Vancomycin random was 30.6. 10/01/2020, seeing the patient for a follow-up. On today's evaluation, when the process of getting this patient a sedation holiday and we are seeing some adequate neurological recovery as the patient open up her eyes and following some simple commands. The patient otherwise is still a mechanical ventilator. She is off paralytics. She is off the fentanyl drip and propofol is currently running at 50 mcg/kg per minute and when the process of weaning it off. She remains on assist control with a rate of 28 and a tidal volume of 350 and FiO2 of 50% with a PEEP of 11. Patient is at 7.35 with a pCO2 of 37 and pO2 of 63. No chest x-ray was done today. She is hemodynamically stable. She is on no pressors. Her last bout of hemodialysis was yesterday. She is showing a creatinine of 3.9 with a BUN of 29. Sodium is at 131. Potassium is at 3.8. Urine output is minimal at this point in time. We noted that as the patient is becoming off sedation, she gets a bit asynchronous with a mechanical ventilator and she starts double stacking. As such, the weaning process will take place slowly. She is receiving enteral feeding for nutritional support. She is tolerating his enteral feeding without any major difficulties. Antibiotics have been discontinued. The patient remains on steroids in the patient is receiving Decadron 4 mg IV every 24 hours. She remains on IV Protonix. IV fluids at KVO. No pressors for now. 10/02/2020, the patient remains on a mechanical ventilator. The patient was admitted asynchronous and the patient was double stacking on and off throughout the night yesterday. This morning she remains on assist control mode at the rate of 28 with a tidal volume of 350 and FiO2 of 50% with a PEEP of 10. The blood gases from today shows a pH of 7.3 with a pCO2 of 37 and pO2 of 66. Chest x-ray still showing diffuse breath and pulmonary infiltrates consistent with ARDS. The peak airway pressure on the mechanical ventilator is at 26. Note that the patient skipped dialysis yesterday and the patient is currently undergoing hemodialysis. She remains sedated and the patient is currently on propofol running at 70 mcg/kg per minute. Fentanyl is running at 2 mcg/kg/h. She is also requiring the low-fat for hemodynamic support which is running at a low dose of 0.03 units per kilogram per minute. The patient has a tracheostomy tube in place. The patient has a dialysis catheter in place. The patient is currently undergoing dialysis. In terms of her blood work, her white cell count is 6.7 with a hemoglobin of 7.2. D-dimer is at 3.9. Serum bicarbonate 17, BUN is a 38 with a creatinine of 4.8. Her LDH level is at 964. The patient is also on enteral feeding for nutritional support. She is receiving vital AF at the rate of 30 mL an hour. She is afebrile. No significant orotracheal secretions. Urine output is diminished less than 1-2 mL an hour. Objective - Vital Signs Vital signs: Vital Signs Temp 99.4 F 10/02/20 04:00 Pulse 92 10/02/20 07:00 Resp 40 H 10/02/20 07:00 BP 100/62 10/02/20 07:00 Pulse Ox 89 L 10/02/20 07:00 Intake & Output 10/01/20 10/02/20 10/02/20 18:59 06:59 18:59 Intake Total 4698.830 5068.472 303 Output Total 0 7 Balance 9478.799 0451.472 303 Weight 129.1 kg 121.8 kg Intake: IV 276 276 23 0.9 Normal Saline @ KVO 240 240 20 0.9 Normal Saline 36 36 3 Pressure Bag Intake, IV Titration 506.796 793.472 250 Amount Norepinephrine 8 mg In 3.289 47.949 Sodium Chloride 0.9% 250 ml @ 0.05 MCG/KG/MIN 11. 61 mls/hr IV .[id number] [facility] Rx#:[id number] fentaNYL (PF) 2,500 mcg 90.747 183.083 250 In Sodium Chloride 0.9% 200 ml @ Per Protocol IV .Q0M [facility] Rx#:[id number] propofoL 1,000 mg In 412.76 562.44 Empty Bag 1 bag @ Per Protocol IV .Q0M [facility] Rx#: [id number] Tube Feeding 250 390 30 Other 90 90 Output: Urine 0 7 Other: Voiding Method Indwelling Catheter Indwelling Catheter ABP, PAP, CO, CI - Last Documented Arterial Blood Pressure 111/68 - Exam GENERAL EXAM: Sedated, 35-year-old female patient, on assist control mode of ventilation , sedated, HEAD: Normocephalic/atraumatic. EYES: Normal reaction of pupils, equal size. Conjunctiva pink, sclera white. NOSE: Clear with pink turbinates. THROAT: No erythema or exudates. NECK: Right internal jugular hemodialysis catheter placed. Tracheostomy tube secured in place. The patient has Bivona #8. No masses, no JVD, no thyroid enlargement, no adenopathy. CHEST: No chest wall deformity. Symmetrical expansion. LUNGS: Equal air entry with bilateral crackles CVS: Regular rate and rhythm, normal S1 and S2, no gallops, no murmurs, no rubs ABDOMEN: PEG tube exit site clean and dry. No hepatosplenomegaly, normal bowel sounds, no guarding or rigidity. EXTREMITIES: No clubbing, no edema, no cyanosis, 2+ pulses and upper and lower extremities. MUSCULOSKELETAL: Muscle strength and tone normal. SPINE: No scoliosis or deformity SKIN: No rashes CENTRAL NERVOUS SYSTEM: Patient is sedated with propofol , being weaned off sedation - Labs CBC & Chem 7: 10/02/20 05:20 10/02/20 06:00 Labs: Abnormal Lab Results - Last 24 Hours (Table) 10/01/20 10/01/20 10/01/20 Range/Units 12:05 12:11 18:16 RBC (3.80-5.40) m/uL Hgb (11.4-16.0) gm/dL Hct (34.0-46.0) % RDW (11.5-15.5) % Lymphocytes # (1.0-4.8) k/uL D-Dimer (<0.60) mg/L FEU ABG pH 7.32 L (7.35-7.45) ABG pO2 60 L (83-108) mmHg ABG HCO3 20 L (21-25) mmol/L ABG O2 Saturation 88.2 L (94-97) % Sodium (137-145) mmol/L Carbon Dioxide (22-30) mmol/L BUN (7-17) mg/dL Creatinine (0.52-1.04) mg/dL Glucose (74-99) mg/dL POC Glucose (mg/dL) 116 H 175 H (75-99) mg/dL Total Bilirubin (0.2-1.3) mg/dL Lactate Dehydrogenase (313-618) U/L C-Reactive Protein (<1.0) mg/dL Total Protein (6.3-8.2) g/dL Albumin (3.5-5.0) g/dL 10/01/20 10/02/20 10/02/20 Range/Units 23:52 04:45 05:20 RBC 2.64 L (3.80-5.40) m/uL Hgb 7.2 L (11.4-16.0) gm/dL Hct 22.6 L (34.0-46.0) % RDW 16.2 H (11.5-15.5) % Lymphocytes # 0.7 L (1.0-4.8) k/uL D-Dimer (<0.60) mg/L FEU ABG pH 7.30 L (7.35-7.45) ABG pO2 66 L (83-108) mmHg ABG HCO3 18 L (21-25) mmol/L ABG O2 Saturation 90.3 L (94-97) % Sodium (137-145) mmol/L Carbon Dioxide (22-30) mmol/L BUN (7-17) mg/dL Creatinine (0.52-1.04) mg/dL Glucose (74-99) mg/dL POC Glucose (mg/dL) 147 H (75-99) mg/dL Total Bilirubin (0.2-1.3) mg/dL Lactate Dehydrogenase (313-618) U/L C-Reactive Protein (<1.0) mg/dL Total Protein (6.3-8.2) g/dL Albumin (3.5-5.0) g/dL 10/02/20 10/02/20 10/02/20 Range/Units 05:45 06:00 06:01 RBC (3.80-5.40) m/uL Hgb (11.4-16.0) gm/dL Hct (34.0-46.0) % RDW (11.5-15.5) % Lymphocytes # (1.0-4.8) k/uL D-Dimer 3.92 H (<0.60) mg/L FEU ABG pH (7.35-7.45) ABG pO2 (83-108) mmHg ABG HCO3 (21-25) mmol/L ABG O2 Saturation (94-97) % Sodium 130 L (137-145) mmol/L Carbon Dioxide 17 L (22-30) mmol/L BUN 38 H (7-17) mg/dL Creatinine 4.83 H (0.52-1.04) mg/dL Glucose 146 H (74-99) mg/dL POC Glucose (mg/dL) 151 H (75-99) mg/dL Total Bilirubin 0.1 L (0.2-1.3) mg/dL Lactate Dehydrogenase 964 H (313-618) U/L C-Reactive Protein 6.7 H (<1.0) mg/dL Total Protein 5.0 L (6.3-8.2) g/dL Albumin 2.4 L (3.5-5.0) g/dL Microbiology - Last 24 Hours (Table) 09/28/20 09:45 Blood Culture - Preliminary Blood No Growth after 72 hours 09/28/20 09:45 Blood Culture - Preliminary Blood No Growth after 72 hours 09/29/20 00:06 Gram Stain - Final Sputum Sputum Culture - Final Assessment and Plan Plan: 1 Acute hypoxic respiratory failure secondary to COVID-19 pneumonia/ARDS, transferred to the intensive care unit on 09/11/2020 and intubated and placed on mechanical ventilator on 09/11/2020. Patient received 1 dose of Remdesivir on 09/11/2020, however based on her quick progression of her hypoxic respiratory failure she received Tocilizumab 800 mg on 09/11/2020. Tracheostomy and PEG tube placed on 09/18/2020. The patient this morning is still double stacking on her breasts. I made some adjustments and I switched her to a VC plus mode with seems to be much more comfortable. The patient is still having some underlying metabolic acidosis and the bicarb deficit has to be replaced. Chest x-ray was noted. Blood gases was noted. The patient is off paralytics. The patient is still on a combination of propofol and fentanyl which would be gradu ally weaned off during the day. The chest x-ray findings are essentially unchanged. Consistent with ARDS post Covid. 2 Acute kidney injury related to ATN, nephrology has been consulted, ultrasound of the kidneys showed no evidence of hydronephrosis. Patient was initiated on hemodialysis on 09/14/2020. Permacath placed 09/20/2020. Patient is undergoing daily dialysis. 3 Acute diabetic ketoacidosis, resolved sugar is still poorly controlled, the patient is currently on long-acting insulin in the patient's Levemir 25 units twice a day along with NovoLog 5 units 4 times a day. Blood sugars are still somewhat elevated. 4 Acute metabolic acidosis related to acute DKA, and acute kidney injury. Recovered . 5 Increased d-dimer, related to COVID-19 pneumonia, currently on lovenox prophylaxis dose of 30 mg subcu every 24 hours 6 hypertension 7 Diabetes mellitus type 2 8 Morbid obesity with BMI 45.3 kg/m 9 Nonsmoker Plan Dropped the PEEP to 10 and increase the tidal volume to 400 and change the patient a VC plus mode at the same rate You have a total of 100 mEq of sodium bicarbonate in the form of an IV push right now Check blood gases at noontime Gradually wean off sedation. Complete dialysis today Continue Decadron 4 mg IV every 24 hours Lovenox 30 mg subcu every 24 hours Continue enteral feeding for nutritional support D-dimer has been noted Continue Levemir insulin 25 units twice a day and keep the NovoLog 5 units every 6 hours along with a sliding scale coverage. We'll increase the maintenance Levemir dose if needed depending on her blood sugar control. Stool for C Diff negative Remove the Haley catheter as the patient is not producing any urine output at this point Condition is critical we'll continue to follow make further recommendations based on her progress. This is a critically care evaluation that was on a more than 30 minutes. Time with Patient: Greater than 30
[2020-10-02] MEDS: CHOLECALCIFEROL 25 MCG (1000 IU) TABLET PO SCH (08:51)
[2020-10-02] MEDS: ASCORBIC ACID 500 MG TAB PO SCH ×2 (08:51→20:28)
[2020-10-02] MEDS: ZINC SULFATE 220 MG CAP PO SCH (08:52)
[2020-10-02] MEDS: SODIUM BICARBONATE TAB 650 MG TAB PO SCH ×3 (08:52→20:28)
[2020-10-02] MEDS: PANTOPRAZOLE 40 MG/10 ML VIAL IVP SCH (08:52)
[2020-10-02] MEDS: ENOXAPARIN 30 MG/0.3 ML SYRINGE SQ SCH (08:52)
[2020-10-02] MEDS: DEXAMETHASONE SOD PHOSPHATE 4 MG/ML 1 ML VIAL IV SCH (08:52)
[2020-10-02] MEDS: SODIUM CHLORIDE 0.9% 500 ML 500 ML IV SCH (08:54)
--- NOTE | 2020-10-02 09:40 | P.PN ---
Progress Note - Text Progress Note Date: 10/02/20 Patient remains on the ventilator.Skin changes overnight. Tolerating tube feeds at 30 mL per hour. Low-grade temp 99.4. White blood cell count normal at 6.7. Tracheostomy and PEG tube site without evidence of bleeding or infection. Continue tube feeds echo. Continue ventilatory support.
[2020-10-02 11:36] LABS: Glucose,Whole Blood 160 mg/dL (75-99)
--- NOTE | 2020-10-02 12:46 | PN ---
PROGRESS NOTE Patient is seen for followup for acute kidney injury, currently dialysis dependent. She is currently seen on hemodialysis, tolerating her treatment well. Her goal UF is set for about 3 L. Systolic blood pressure about 130 mmHg. Patient remains on the vent. She has edema about 2+ upper and lower extremities. Abdomen is soft, nontender. The patient is tolerating tube feeds. LAB: Show sodium 130, potassium 3.9, chloride 101, CO2 17, BUN 38, serum creatinine 4.83. ASSESSMENT: 1. Acute kidney injury, acute tubular necrosis, oliguric, currently hemodialysis dependent. We will try to maintain her on a Friday, Friday, Friday schedule for dialysis unless she needs more frequent treatments for volume overload. 2. Metabolic acidosis, improved with dialysis and oral sodium bicarb. We will adjust the bicarb bath again for next treatment. Continue with oral sodium bicarb for now. 3. Hyperphosphatemia, maintained on Renvela. 4. Anemia, multifactorial, currently maintained on Aranesp. 5. COVID pneumonia with adult respiratory distress syndrome, maintained on steroids. The patient remains on the vent. PLAN: Repeat labs in a.m. Next dialysis on October 04, 2020. MMODL / IJN: [id number] /
[2020-10-02 13:14] LABS: ABG Base Excess 0.2 mmol/L; ABG HCO3 25 mmol/L (21-25); ABG Oxygen Saturation 89.2 % (94-97); ABG PCO2 41 mmHg (35-45); ABG TCO2 26 mmol/L (19-24)
[2020-10-02 13:18] LABS: ABG PO2 58 mmHg (83-108)
--- NOTE | 2020-10-02 13:44 | P.PN ---
Subjective Progress Note Date: 10/02/20 35-year-old female patient of Dr. Arroyo with past medical history of type 2 diabetes comes in with acute shortness of breath associated with high light sugars. Patient on admission was found to have a fever of 101.5 pulse rate 125 respiratory rate 20. Blood pressure 132/106. On chest x-ray obtained in the ER suggestive of bilateral infiltrates concerning for call with pneumonia. COVID PCR was positive. On admissions patient had an ABG with a pH of 7.14 pCO2 of 20, pO2 of 59, bicarb of 7. Patient's blood sugar on admission was 424 on assessment today patient's blood work patient had a sodium 135 potassium 5.4 chloride 123 bicarb less than 5 and creatinine 0.73. D-dimer was elevated on admission patient 9 28 patient given 1 L of IV fluids followed by normal saline running at 200 mL/h. Patient was positive for acetone on admission. She will anion gap closed and was switched to D5NS. Insulin drip was continued during the night and was switched to patient's home medication this morning. One dose of remdesiver was ordered. Apparently around noon, A- team was called on the patient secondary to hypoxia patient's oxygen saturation dropped to the 70s and 80s on 100% nonrebreather. Patient was switched to BiPAP on 18/12 and is doing better o FiO2 of 80%. ABG was obtained and ph was 7. 14 pCO2 of 28 bicarb of 7 pO2 of 17. Patient noted to have uncompensated metabolic acidosis with compensated respiratory alkalosis. Stat dose of 1 amp bicarb was given and followed by sodium bicarbonate drip. Insulin drip restarted. Patient's initiated on dexamethasone 6 mg IV twice a d ay. Potassium phosphate ordered as phosphorus is low. Patient's repeat blood gases suggest a pH of 7.25, CO2 32 pO2 of 72 bicarb 14. I will not normal saline at 100 mL/h as patient's anion gap has increased. Patient given 1 dose of 2 mg of morphine with improvement in respiratory rate. One dose of Ativan 0.5 mg was given. Xanax 0.25 twice a day along with Ativan 0.5 IV every 6 hours ordered for the patient. Vitals were evaluated patient pulse 129 [id number]. She was moved to the ICU. Precedex drip was initiated. Lopressor was initiated at 25 twice a day. Metoprolol tartrate 5 mg IV every 6 hours. Systolic blood pressure more than 160. Started chest x-ray was obtained and suggest stable bilateral consolidation suggestive of COVID-19 pneumonia. 09/12 patient is seen in the ICU is currently mechanically ventilated and sedated on vent settings of respiratory rate 36, tidal volume 375 FiO2 80% PEEP of 18.. Vital signs reviewed patient had a temp of 100.4 pulse 150 respiratory rate 36 oxygen saturation 95% on 80% on fio2 .'s labs are reviewed which patient had a d-dimer 1.84 that is increased to 14.3. Arterial Blood gas suggest ph 7.35, CO2 40, po2 62, . Her BMP suggest a sodium 135 potassium 3.7 chloride 112 bicarb 21 creatinine 1.57 for calcitonin is 3.5 CRP is increased from 8.78.2 LDH is increased to 2614. Patient remains on Pneumovax, propofol drip. Lovenox increased to 50 subcu twice a day. Patient received 2 L of IV fluids. Continue IV fluids at 100 mL/h. Bicarb drip discontinued patient initiated on Zosyn 3.375 every 8 hours. Continue insulin drip at 4 units per hour. Patient is currently in prone positioning 09/13: Patient evaluated in the ICU remains on Ventilation continues to be sedated, in prone position. Vent settings are respiratory rate 36, tidal vital 375, FiO2 70% PEEP of 18. ABG shows pO2 of 82, PCO2 of 39, pH is 7.19. Latest labs show WBC 11.1, hemoglobin 13.2, d-dimer still pending, but yesterday was up to 14.3. Creatinine up to 3.4, BUN 24 sodium 137, potassium 4.0. Patient's urine output has been low, nephrology on consult. Bicarb drip increased to 100 miles an hour, receiving another liter of normal saline, she did have a ultrasound that showed unremarkable bilateral kidneys. Repeat chest x-ray showed bilateral lung infiltrates that are stable. Anion gap has closed, will start Lantus 10 units at at bedtime Novolog every 6 hours. 09/14: Patient is seen in the ICU, still currently mechanically ventilated and sedated. She continues in the prone position. Her oxygen quickly drops if she is not in prone. Patient's kidney function has worsened. Laboratory values show creatinine of 4.87, BUN 33, LDH 2191, C-reactive protein 2.7. ABG shows pH 7.32, pO2 of 60, pCO2 43. Patient is making almost no urine overnight. Nephrology is following patient continues on cefepime for urinary tract infectio n, culture is still pending. Vascular has been consulted for placement of temporary hemodialysis catheter for plans for dialysis. 09/15: Patient evaluated in the ICU, continues to be mechanically ventilated and sedated on assist control ventilation rate of 36, tidal volume 375, FiO2 100% and PEEP of 18. ABG today shows pO2 58, pCO2 of 45, and pH 7.35. She continues on tube feedings. Yesterday patient underwent ultrasound-guided right internal jugular non-tunneled hemodialysis catheter placement. Patient underwent hemodialysis treatment last night and plans have another hemodialysis treatment today. She continues to make almost no urine. She continues on cefepime for antibiotic coverage, and continues on Decadron and Lovenox. 09/16: Patient seen on follow-up remains in the ICU mechanically ventilated and sedated. She continues on assist control rate of 36, tidal volume 375, FiO2 10 0% and PEEP of 20. PEEP had to be increased due to patient had to be in supine position for dialysis, will go back to prone position once dialysis is complete. ABG shows pH 7.32, pCO2 49, PaO2 61. Laboratory values showed WBC 11.2, hemoglobin 11, sodium 134, creatinine 4.44, BUN 38. Urine culture shows no growth, blood cultures show no growth to date. Repeat chest x-ray shows bilateral pleural effusions, correlate for ARDS, pulmonary edema, diffuse pneumonia, findings are stable from last exam. Patient does not require any pressors, blood pressure 133/57, heart rate 78. 5/16: Patient was evaluated in the ICU today for follow-up. She continues to be intubated and on mechanical ventilation. Current vent settings are tidal volume 375, FiO2 100% and PEEP of 20. ABG shows pH 7.37, pCO2 40, pO2 102. She continues with intermittent prone positioning. Patient continues to have almost no urine output, maintained on dialysis. Patient received dialysis yesterday without complication. Laboratory values revealed WBC 10.3, hemoglobin 10.4, sodium 132, potassium 3.1, BUN 33, creatinine 4.29, LDH 1913, C-reactive protein 1.3. Urine and sputum cultures are negative, blood cultures show no growth to date. Consult placed to dietary to start TPN[ ] 09/18: She remains in the intensive care unit intubated and on mechanical ventilation with tidal volume 375, FiO2 60 and PEEP of 20. Patient is being prone to daily at approximately 16 hours per day. Pulmonary medicine has added in Dr. Zhang to do PEG tube and trach today. Patient is not on vasopressors. Repeat blood work reveals WBC 12.6, hemoglobin 9.8, platelet count 212. Sodium 133, potassium 3.2, chloride 102, CO2 21, BUN 35 and creatinine 4.12. Blood sugar 126. Patient underwent hemodialysis yesterday with removal of 2 L and is scheduled again today with goal of 2-3 L and is scheduled again tomorrow. 09/19: She is scheduled for hemodialysis today and is off fentanyl temporarily. Patient is status post trach and PEG tube yesterday. And she remains on mechanical ventilation. Pulse ox 93-95%. She has been afebrile, heart rate 64, respiratory rate 36, blood pressure 115/50. Fentanyl is off to improve blood pressure for hemodialysis which is scheduled for today. Contacted vascular surgery about permanent hemodialysis catheter. Repeat blood work reveals WBC 14.3, hemoglobin 9.6, platelet count 200. D-dimer 6.48. LDH 1686. C-reactive protein 1.1. BUN 34 creatinine 3.81. Sodium 130, potassium 3.5, chloride 101, CO2 18. Blood sugars running between 101 198. Plan is to wean off Pneumovax today. Patient remains on insulin drip. Repeat chest x-ray reveals bilateral multifocal confluent opacities consistent with COVID-19. Some improved aeration periphery of the left lung and worsening opacities throughout the right lung. 09/20: She remains in the intensive care unit on mechanical ventilation. She has been afebrile, heart rate 65, respiratory rate 37, blood pressure 121/70, pulse ox 91-99%. Repeat blood work reveals WBC 14.5, hemoglobin 9.1, platelet count 216. D-dimer 6.13. Sodium 133, potassium 3.1, chloride 102, CO2 18, BUN 35 and creatinine 4.27. Blood sugars running between 128 and 143. LDH 1717. C- reactive protein 1.7. Patient remains on insulin drip which will be transit ioned to NovoLog scale every 6 hours. Patient is scheduled for permanent hemodialysis catheter placement today with vascular surgery. Repeat chest x-ray reveals stable diffuse bilateral interstitial and airspace disease. Possible small right effusion. His work is following [facility] Do not anticipate discharge until next week. 09/21: Patient is undergoing hemodialysis. She remains on mechanical ventilation with tidal volume 375, FiO2 down to 45 and PEEP was decreased to 15. Patient is continued on propofol, fentanyl drips. She is on tube feedings at goal. Patient was taken off insulin drip yesterday and on scale only but blood sugars are running in the 200s, Levemir scheduled at bedtime will be added. Other blood work reveals WBC 13.3, hemoglobin 8.7, platelet count 192. Sodium 137, potassium 3.6, chloride 107, CO2 18, BUN 34 and creatinine 4.21. Repeat chest x-ray is stable. 09/22: She remains in the intensive care on mechanical ventilation with tidal volume 375, FiO2 of 50 and PEEP of 10. Pulse ox is running 96%. She is afebrile, heart rate in the 50s, respiratory rate 36, blood pressure 100/64. Repeat blood work reveals WBC 16.5, hemoglobin 8.9, platelet count 213. Sodium 134, potassium 3.7, chloride 103, CO2 21, BUN 34 and creatinine 3.89. Blood sugars running in the 200s to 324. Levemir increased to 16 units at bedtime and continue NovoLog scale every 6 hours. Patient is on tube feedings at goal. She has a Hlaey catheter in with a scant amount of dark/brown urine. Fecal management system is in place. Repeat chest x-ray reveals diffuse bilateral airspace infiltrates persist unchanged. Patient is scheduled for hemodialysis tomorrow morning on Friday. 09/23: Patient remains on mechanical ventilation with tidal volume 3.75, FiO2 50 and PEEP of 10. library monitor sinus rhythm. She has no urine output. Fecal management system is in place. She is undergoing dialysis at this time with plan for removal of 2-1/2 L. She has been afebrile, heart rate in the 50s, respiratory rate 36, blood pressure 108/76 and pulse ox 89%. WBC 13.6, hemoglobin 9.1, platelet count 194. Sodium 136, potassium 3.0 and was replaced, chloride 106, CO2 21, BUN 49 creatinine 5.31. Blood sugars are running between 182 and this morning 194. Patient was still in the 200s and 300s. Levemir last evening was increased to 16 units. Patient remains on propofol and fentanyl drips. Lovenox was increased to 60 mg twice daily. 09/24: PEEP was increased today to 20, tidal volume is at 375 and FiO2 of 50%. Patient has been afebrile. She has been started on levo fed. Repeat chest x- ray reveals bilateral multifocal confluent opacities consistent with Covid 19 or ARDS redemonstrated. Nephrology will plan dialysis for tomorrow for 3 L. Patient remains on propofol fentanyl and Nimbex. WBC 12.5, hemoglobin 9.8, platelet count 161. D-dimer 13.3. Sodium 132, potassium 3.4, chloride 102, CO2 20, BUN 48 and creatinine 4.67. Blood sugars extremely elevated to 96-409. LDH 2217. 09/25: Patient remains in the intensive care unit on mechanical ventilation with tidal volume 375, FiO2 50 and PEEP of 20. Patient is afebrile, heart rate 61, respiratory rate 36, blood pressure 102/56, pulse ox 97%. Repeat blood work reveals WBC 9.3, hemoglobin 8.5 and platelet count 171. Sodium 130, potassium 3.7, chloride 100, CO2 20, BUN 61 creatinine 5.65. Blood sugars have been elevated up to 455. Levemir increased to 20 units twice daily, NovoLog 5 units every 6 hours and continue NovoLog scale. Patient is scheduled for hemodialysis today. Repeat chest x-ray reveals bilateral multifocal and confluent opacities. Decadron and Lovenox dosing change by pulmonary. Patient is off norepinephrine. 09/26: Patient remains in the intensive care unit on mechanical ventilation with tidal volume 375, FiO2 50 and PEEP of 15. She has been afebrile, heart rate 91, blood pressure 114/68, pulse ox 99%. library monitor sinus rhythm. 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 Sodium 134, potassium 3.6, chloride 102, CO2 22, BUN 41 creatinine 4.21. Patient has improved blood sugars this morning running 150s and 160s. Diabetic medications were adjusted yesterday. Patient is awake and alert and interacting. Yesterday, patient had PICC line inserted by interventional radiology. Repeat chest x-ray reveals diffuse airspace infiltrates in both lung ann appear to progress slightly in the interval. 09/27: Patient remains in intensive care unit on mechanical ventilation with improvement of settings with tidal volume 375, FiO2 decreased to 40 and PEEP decreased to 10. Patient is on hemodialysis every other day and plan to remove 3 L today. Patient is more awake and alert. She is slow to respond but is able to follow simple commands. Blood sugars are running between 84 and 123. Repeat blood work reveals WBC 7.1, hemoglobin 8.1, platelets 152. Sodium 135, potassium 3.6, chloride 103, CO2 21, BUN 53 and creatinine 5.88. Repeat chest x-ray revealed cardiomegaly and pulmonary edema. Patient is on tube feedings:. Patient is not require vasopressors and is off sedation. Fecal management system remains in place for brown liquid stool. C. difficile was negative. 09/28: Patient remains on mechanical ventilation with tidal volume 375, FiO2 increased to 80 and PEEP increased to 18. Patient had a rough night was very anxious, no pain. Xanax 0.25 mg 3 times daily was added. There is concern for pulmonary embolism for which patient was started on heparin drip, she is unable to undergo CAT scan. Venous Doppler bilateral lower extremities was nondiagnostic due to extensive edema in obese patient but minimal imaging of the popliteal veins does show flow. Repeat echocardiogram has been ordered. Cefepime has also been ordered at 1 g IV piggyback every 24 hours as well as vancomycin, pharmacy dosing. Patient is back on fentanyl drip, propofol drip and norepinephrine. Blood sugars are elevated and insulin Levemir will be increased to 25 mg twice daily. Ferrlecit infusion has been ordered by nephrology for 4 days. Patient is undergoing hemodialysis today.temperature max 100.2, heart rate 134, respiratory rate 34, blood pressure 120/65, pulse ox 94%. library monitor is sinus tachycardia. Repeat blood work reveals WBC 16.9, hemoglobin 9.7, platelet count 216. D-dimer 8.81. Sodium 134, potassium 3.8, chloride 99, CO2 25, BUN 43 and creatinine 5.36. Blood sugars in the 200s. AST 40. 09/29 Patient had declined more last 48 hours require more sedation, patient is doing hemodialysis, respiratory failure is quite bit worse this time. Patient was inquired the pain is well back on fentanyl drip. Her vent set up with PEEP is limited but higher. No new finding on culture and her chest x-ray continues shows diffuse infiltrate persistent although there is a moderate interval improvement. patient's was seen and evaluated. PEEP was reduced to 11 as patient is maintaining good saturation at the current vent settings. patient was seen at bedside. She is currently on assist control rate of 28 white tidal volume 350 FiO2 50% and PEEP of 10 which has been reduced by pulmonary as patient name cleaning her oxygen saturation. Arm blood gas was ob tained with a pH of 7.35 pCO2 37 pO2 of 63. She remains hemodynamically stable with no need for pressors. Labs were reviewed patient's BUN is 29 creatinine 3.93 glucose 122 albumin 2.2 sodium 131 chloride 19 hemoglobin is downtrending with a Hb of 7.3 no leukocytosis 7.1. Patient's urine output is minimal at this time. Her rate has increased to 129 and is currently on positive fluid balance even with dialysis. Last dialysis was done yesterday. Continue enteral feeding currently at goal. Antibiotic has been discontinued and continues to remain on DEXA methicillin 4 mg IV daily. patient continues to be on trach support with mechanical ventilation. Patient was evaluated by steam shovel operating engineer and was switched to VC control as patient was noted to be double stacking on and off throughout the night. Respiratory rate continue to 28 tidal volume increased to 400 with a PEEP for Dr. Downey. Patient is maintaining oxygen saturation 91% on the current setting. According to the nurse bedside patient saturation drops significantly or she is moved or her sedation is dropped. Patient is currently on propofol drip, fentanyl drip. She did underwent dialysis today and was able to maintain her low pressure without the need of pressors. Labs reviewed today suggest a WBC of 6.7 hemoglobin of 7.0 and d-dimer 3.9 bicarb 17 BUN 38 creatinine 4.8. LDH is 964. Sodium 1:30 likely secondary to volume overload. Urine sodium and urine osmolality ordered. Patient's glucose this morning is 146. Continue to remain on enteral feeding. Urine output is reduced. Fall catheter will be placed today. Continue to remain on dialysis. Unable to obtain due to mechanical ventilation. Objective - Vital Signs Vital signs: Vital Signs Temp 99.0 F 10/02/20 11:53 Pulse 95 10/02/20 11:53 Resp 34 H 10/02/20 11:53 BP 115/61 05/31/21 11:53 Pulse Ox 94 L 10/02/20 11:00 Intake & Output 10/01/20 10/02/20 10/02/20 18:59 06:59 18:59 Intake Total 2865.281 9392.472 775 Output Total 0 7 3500 Balance 8681.888 2729.472 -2725 Weight 129.1 kg 121.8 kg Intake: IV 276 276 115 0.9 Normal Saline @ KVO 240 240 100 0.9 Normal Saline 36 36 15 Pressure Bag Intake, IV Titration 506.796 793.472 450 Amount Norepinephrine 8 mg In 3.289 47.949 Sodium Chloride 0.9% 250 ml @ 0.05 MCG/KG/MIN 11. 61 mls/hr IV .[id number] [facility] Rx#:[id number] fentaNYL (PF) 2,500 mcg 90.747 183.083 250 In Sodium Chloride 0.9% 200 ml @ Per Protocol IV .Q0M [facility] Rx#:[id number] propofoL 1,000 mg In 412.76 562.44 200 Empty Bag 1 bag @ Per Protocol IV .Q0M [facility] Rx#: [id number] Tube Feeding 250 390 180 Other 90 90 30 Output: Urine 0 7 0 Hemodialysis 3500 Other: Voiding Method Indwelling Catheter Indwelling Catheter Indwelling Catheter ABP, PAP, CO, CI - Last Documented Arterial Blood Pressure 112/58 - Exam Physical exam restricted due to COVID 19 - Constitutional General appearance: cooperative, tracheostomy in place and sedated,supine - Neck Neck: normal ROM - Respiratory Respiratory: bilateral decreased air entry. Minimal chest retractions noted - Cardiovascular Rhythm sinus tachycardia Heart sounds: normal: S1, S2 - Gastrointestinal General gastrointestinal: Nondistended PEG tube in place and dry fecal management system in place with brown stool - Integumentary Integumentary: no rash no pedal edema no calf tenderness - Neurologic Neurologic: No gross motor deficit - Musculoskeletal Musculoskeletal: Sedated - Psychiatric Psychiatric: Sedated - Labs CBC & Chem 7: 10/02/20 05:20 10/02/20 06:00 Labs: Abnormal Lab Results - Last 24 Hours (Table) 10/01/20 10/01/20 10/02/20 Range/Units 18:16 23:52 04:45 RBC (3.80-5.40) m/uL Hgb (11.4-16.0) gm/dL Hct (34.0-46.0) % RDW (11.5-15.5) % Lymphocytes # (1.0-4.8) k/uL D-Dimer (<0.60) mg/L FEU ABG pH 7.30 L (7.35-7.45) ABG pO2 66 L (83-108) mmHg ABG HCO3 18 L (21-25) mmol/L ABG Total CO2 (19-24) mmol/L ABG O2 Saturation 90.3 L (94-97) % Sodium (137-145) mmol/L Carbon Dioxide (22-30) mmol/L BUN (7-17) mg/dL Creatinine (0.52-1.04) mg/dL Glucose (74-99) mg/dL POC Glucose (mg/dL) 175 H 147 H (75-99) mg/dL Total Bilirubin (0.2-1.3) mg/dL Lactate Dehydrogenase (313-618) U/L C-Reactive Protein (<1.0) mg/dL Total Protein (6.3-8.2) g/dL Albumin (3.5-5.0) g/dL 10/02/20 10/02/20 10/02/20 Range/Units 05:20 05:45 06:00 RBC 2.64 L (3.80-5.40) m/uL Hgb 7.2 L (11.4-16.0) gm/dL Hct 22.6 L (34.0-46.0) % RDW 16.2 H (11.5-15.5) % Lymphocytes # 0.7 L (1.0-4.8) k/uL D-Dimer 3.92 H (<0.60) mg/L FEU ABG pH (7.35-7.45) ABG pO2 (83-108) mmHg ABG HCO3 (21-25) mmol/L ABG Total CO2 (19-24) mmol/L ABG O2 Saturation (94-97) % Sodium 130 L (137-145) mmol/L Carbon Dioxide 17 L (22-30) mmol/L BUN 38 H (7-17) mg/dL Creatinine 4.83 H (0.52-1.04) mg/dL Glucose 146 H (74-99) mg/dL POC Glucose (mg/dL) (75-99) mg/dL Total Bilirubin 0.1 L (0.2-1.3) mg/dL Lactate Dehydrogenase 964 H (313-618) U/L C-Reactive Protein 6.7 H (<1.0) mg/dL Total Protein 5.0 L (6.3-8.2) g/dL Albumin 2.4 L (3.5-5.0) g/dL 10/02/20 10/02/20 10/02/20 Range/Units 06:01 11:34 13:11 RBC (3.80-5.40) m/uL Hgb (11.4-16.0) gm/dL Hct (34.0-46.0) % RDW (11.5-15.5) % Lymphocytes # (1.0-4.8) k/uL D-Dimer (<0.60) mg/L FEU ABG pH (7.35-7.45) ABG pO2 58 L* (83-108) mmHg ABG HCO3 (21-25) mmol/L ABG Total CO2 26 H (19-24) mmol/L ABG O2 Saturation 89.2 L (94-97) % Sodium (137-145) mmol/L Carbon Dioxide (22-30) mmol/L BUN (7-17) mg/dL Creatinine (0.52-1.04) mg/dL Glucose (74-99) mg/dL POC Glucose (mg/dL) 151 H 160 H (75-99) mg/dL Total Bilirubin (0.2-1.3) mg/dL Lactate Dehydrogenase (313-618) U/L C-Reactive Protein (<1.0) mg/dL Total Protein (6.3-8.2) g/dL Albumin (3.5-5.0) g/dL Microbiology - Last 24 Hours (Table) 09/28/20 09:45 Blood Culture - Preliminary Blood No Growth after 96 hours 09/28/20 09:45 Blood Culture - Preliminary Blood No Growth after 96 hours 09/29/20 00:06 Gram Stain - Final Sputum Sputum Culture - Final Assessment and Plan Plan: 1. Acute hypoxic respiratory failure secondary to Covid 19 pneumonia and possible bacterial pneumonia. Patient was intubated on September 11. She is status post 1 dose of Remdesivir and 1 dose of Tocilizumab. Continue Ventolin inhaler 4 times daily, Symbicort twice daily, Decadron 4 mg IV daily, Lovenox 30 mg subcu daily, supplements. Status post PEG tube and trach. Off antibiotics still seen infectious disease, and pulmonary, patient remained stable. Continue dialysis to help with 1-year-old 2. Acute kidney injury secondary to ATN secondary to Covid 19 and DKA. Patient continued on hemodialysis. Permanent dialysis catheter placed. patient is doing dialysis almost on daily basis. Last dialysis on 04/23 3. Metabolic encephalopathy secondary to Covid 19 and DKA.significant declining condition. Sedation holiday was given and patient was noted to be responding appropriately 4. Sepsis and septic shock secondary to Covid 19 pneumonia. Continue as in #1. 5. Acute metabolic acidosis secondary to acute DKA, Covid 19 and acute kidney injury. 6. Diabetes mellitus type 2 uncontrolled with A1c 13.6. continue intense diabetic management and insulin. 7. electrolyte imbalance: Post correction of hypophosphatemia 8. hypertension: Blood pressure slightly bit low at this point patient remain o n metoprolol IV and per PEG tube. 9. Sinus tachycardia secondary to sepsis, volume deficiency.Continue Lopressor 25 mg twice daily. 10. type 2 diabetes on insulin with presentation with diabetic ketoacidosis secondary to COVID-19 altercation, patient remain on Levemir 20 units twice a day along with schedule NovoLog 8 units before meals meals and keep titrating the dose. 11. Possible acute gram-negative pneumonia versus MRSA pneumonia. Patient has been started on cefepime and vancomycin. 12. Morbid obesity with BMI of 53. 13. DVT prophylaxis. Lovenox. 14. GI prophylaxis. Protonix 40 mg IV push daily. CODE STATUS: Full code Prognosis guarded.
[2020-10-02] MEDS: CISATRACURIUM 200 MG in SODIUM CHLORIDE 0.9% 180 ML IV SCH (14:20)
[2020-10-02 17:48] LABS: Glucose,Whole Blood 138 mg/dL (75-99)
[2020-10-02] MEDS: ACETAMINOPHEN TAB 325 MG TAB PO PRN (20:38)
[2020-10-02 23:55] LABS: Glucose,Whole Blood 154 mg/dL (75-99)
[2020-10-03] MEDS: ARTIFICIAL TEARS OINTMENT 3.5 GM TUBE BOTH EYES SCH ×6 (00:14→20:18)
[2020-10-03] MEDS: INSULIN ASPART (NovoLOG) 100 UNIT/ML VIAL SQ SCH ×9 (00:14→23:58)
[2020-10-03] MEDS: ACETAMINOPHEN TAB 325 MG TAB PO PRN (02:51)
[2020-10-03 04:19] LABS: Basophils % (A) 0 %; Eosinophils # (A) 0.6 k/uL (0-0.7); Eosinophils % (A) 11 %; HGB 7.4 gm/dL (11.4-16.0); Hypochromasia Slight; Lymphocytes # (A) 0.6 k/uL (1.0-4.8); Lymphocytes % (A) 11 %; MCH 28.5 pg (25.0-35.0); MCHC 33.6 g/dL (31.0-37.0); MCV 84.8 fL (80.0-100.0); Monocytes # (A) 0.3 k/uL (0-1.0); Monocytes % (A) 5 %; Neutrophils # (A) 4.3 k/uL (1.3-7.7); Neutrophils % (A) 72 %; Platelet Count 160 k/uL (150-450); Poikilocytosis Slight; RBC 2.59 m/uL (3.80-5.40)
[2020-10-03 04:49] LABS: Albumin 2.4 g/dL (3.5-5.0); Potassium 3.5 mmol/L (3.5-5.1); Total Bilirubin 0.2 mg/dL (0.2-1.3); Total Protein 5.1 g/dL (6.3-8.2)
[2020-10-03 05:00] LABS: C Reactive Protein 13.6 mg/dL (<1.0)
[2020-10-03] MEDS ORDERED: Potassium Replacement Protocol 1 EACH MISC MISCELLANE PRN (05:09)
[2020-10-03] MEDS: POTASSIUM BICARBONATE/CIT AC 20 MEQ TABLET.EFF NG-TUBE SCH ×2 (05:23→06:25)
[2020-10-03] MEDS: NOREPINEPHRINE 8 MG in SODIUM CHLORIDE 0.9% 250 ML IV SCH (05:54)
[2020-10-03 05:57] LABS: ABG Base Excess -0.8 mmol/L; ABG HCO3 24 mmol/L (21-25); ABG Oxygen Saturation 92.8 % (94-97); ABG PCO2 38 mmHg (35-45); ABG PH 7.41 (7.35-7.45); ABG PO2 67 mmHg (83-108); ABG TCO2 25 mmol/L (19-24); Allen Test Performed? Yes
[2020-10-03] MEDS: INSULIN DETEMIR (LEVEMIR) 100 UNIT/ML SYR SQ SCH ×2 (06:26→20:18)
[2020-10-03] MEDS: SEVELAMER 800 MG TAB PO SCH ×3 (06:26→17:07)
[2020-10-03] MEDS: ALBUTEROL HFA INHALER INHALATION SCH ×4 (07:56→21:38)
[2020-10-03] MEDS: SYMBICORT 160-4.5 MCG INHALER INHALATION SCH ×2 (07:56→21:38)
--- NOTE | 2020-10-03 08:01 | XR ---
EXAMINATION TYPE: XR chest 1V portable DATE OF EXAM: 10/03/2020 COMPARISON: 10/02/2020 HISTORY: Shortness of breath TECHNIQUE: Single frontal view of the chest is obtained. FINDINGS: Right-sided PICC line and dialysis catheter noted with a tracheostomy tube. Heart is enlar ged and there is diffuse bilateral infiltrate with pleural effusion. No sizable pneumothorax. IMPRESSION: Stable diffuse bilateral airspace disease correlate for ARDS, pulmonary edema or diffuse pneumonia.
[2020-10-03] MEDS: SODIUM CHLORIDE 0.9% 500 ML 500 ML IV SCH (08:53)
[2020-10-03] MEDS: PANTOPRAZOLE 40 MG/10 ML VIAL IVP SCH (08:54)
[2020-10-03] MEDS: SODIUM BICARBONATE TAB 650 MG TAB PO SCH ×3 (08:54→20:18)
[2020-10-03] MEDS: ENOXAPARIN 30 MG/0.3 ML SYRINGE SQ SCH (08:54)
[2020-10-03] MEDS: DEXAMETHASONE SOD PHOSPHATE 4 MG/ML 1 ML VIAL IV SCH (08:54)
[2020-10-03] MEDS: ASCORBIC ACID 500 MG TAB PO SCH ×2 (08:54→20:18)
[2020-10-03] MEDS: CHOLECALCIFEROL 25 MCG (1000 IU) TABLET PO SCH (08:54)
[2020-10-03] MEDS: ZINC SULFATE 220 MG CAP PO SCH (08:54)
[2020-10-03 11:05] LABS: Ferritin 1514.8 ng/mL (10.0-291.0)
--- NOTE | 2020-10-03 12:05 | P.PN ---
Subjective Progress Note Date: 10/03/20 CHIEF COMPLAINT: COVID-19 pneumonia HISTORY OF PRESENT ILLNESS: Patient is in the ICU for COVID-19 pneumonia and respiratory failure. She is status post tracheostomy and PEG tube placement with Dr. hollis. Patient is tolerating tube feedings. Her to feedings are at goal at 30 mL per hour. She is having stools and his fecal management system in place. Patient remains on mechanical ventilation. Her PEEP is at 10. She was weaned off the Levophed this morning. She did have a fever of 101 last night. Temp this morning is 99.8 WBC 6 Patient seen and examined with Dr. hollis PHYSICAL EXAM: VITAL SIGNS: Reviewed. GENERAL: Well-developed in no acute distress. HEENT: No sclera icterus. Extraocular movements grossly intact. Moist buccal mucosa. Head is atraumatic, normocephalic. Tracheostomy site clean dry and intact. No evidence of bleeding ABDOMEN: Soft. Nondistended. Nontender. PEG tube site clean dry and intact NEUROLOGIC: Awake and following commands ASSESSMENT: 1. Acute hypoxic respiratory failure with prolonged mechanical ventilation due to COVID-19 pneumonia status post tracheostomy placement 2. Severe protein calorie malnutrition status post PEG tube placement PLAN: -Continue tube feedings -Continue supportive care -Continue ICU management Physician Air Valve Repairer note has been reviewed by physician. Signing provider agrees with the documented findings, assessment, and plan of care. Objective - Vital Signs Vital signs: Vital Signs Temp 99.3 F 10/03/20 08:00 Pulse 105 H 10/03/20 10:00 Resp 32 H 10/03/20 10:00 BP 99/48 10/03/20 10:00 Pulse Ox 93 L 10/03/20 10:00 Intake & Output 10/02/20 10/03/20 10/03/20 18:59 06:59 18:59 Intake Total 6989.677 0718.574 545.693 Output Total 3500 1100 Balance -9873.539 7526.574 -554.307 Weight 123.7 kg Intake: IV 279 286 95 0.9 Normal Saline @ KVO 240 220 80 0.9 Normal Saline 39 66 15 Pressure Bag Intake, IV Titration 801.167 566.574 300.693 Amount Norepinephrine 8 mg In 169.854 55.264 Sodium Chloride 0.9% 250 ml @ 0.05 MCG/KG/MIN 11. 61 mls/hr IV .[id number] [facility] Rx#:[id number] fentaNYL (PF) 2,500 mcg 501.167 145.429 In Sodium Chloride 0.9% 200 ml @ Per Protocol IV .Q0M [facility] Rx#:[id number] propofoL 1,000 mg In 300 396.72 100 Empty Bag 1 bag @ Per Protocol IV .Q0M [facility] Rx#: [id number] Tube Feeding 420 360 120 Other 90 90 30 Output: Urine 0 Stool 1100 Hemodialysis 3500 Other: Voiding Method Indwelling Catheter # Voids 0 0 ABP, PAP, CO, CI - Last Documented Arterial Blood Pressure 119/61 - Labs CBC & Chem 7: 10/03/20 03:50 10/03/20 03:50 Labs: Abnormal Lab Results - Last 24 Hours (Table) 10/02/20 10/02/20 10/02/20 Range/Units 06:00 13:11 17:46 RBC (3.80-5.40) m/uL Hgb (11.4-16.0) gm/dL Hct (34.0-46.0) % RDW (11.5-15.5) % Lymphocytes # (1.0-4.8) k/uL D-Dimer (<0.60) mg/L FEU ABG pO2 58 L* (83-108) mmHg ABG Total CO2 26 H (19-24) mmol/L ABG O2 Saturation 89.2 L (94-97) % Sodium (137-145) mmol/L BUN (7-17) mg/dL Creatinine (0.52-1.04) mg/dL Glucose (74-99) mg/dL POC Glucose (mg/dL) 138 H (75-99) mg/dL Ferritin (10.0-291.0) ng/mL Lactate Dehydrogenase (313-618) U/L C-Reactive Protein (<1.0) mg/dL Total Protein (6.3-8.2) g/dL Albumin (3.5-5.0) g/dL Procalcitonin 1.49 H (0.02-0.09) ng/mL 10/02/20 10/03/20 10/03/20 Range/Units 23:54 03:50 03:50 RBC 2.59 L (3.80-5.40) m/uL Hgb 7.4 L (11.4-16.0) gm/dL Hct 22.0 L (34.0-46.0) % RDW 16.0 H (11.5-15.5) % Lymphocytes # 0.6 L (1.0-4.8) k/uL D-Dimer 4.05 H (<0.60) mg/L FEU ABG pO2 (83-108) mmHg ABG Total CO2 (19-24) mmol/L ABG O2 Saturation (94-97) % Sodium (137-145) mmol/L BUN (7-17) mg/dL Creatinine (0.52-1.04) mg/dL Glucose (74-99) mg/dL POC Glucose (mg/dL) 154 H (75-99) mg/dL Ferritin (10.0-291.0) ng/mL Lactate Dehydrogenase (313-618) U/L C-Reactive Protein (<1.0) mg/dL Total Protein (6.3-8.2) g/dL Albumin (3.5-5.0) g/dL Procalcitonin (0.02-0.09) ng/mL 10/03/20 10/03/20 Range/Units 03:50 05:52 RBC (3.80-5.40) m/uL Hgb (11.4-16.0) gm/dL Hct (34.0-46.0) % RDW (11.5-15.5) % Lymphocytes # (1.0-4.8) k/uL D-Dimer (<0.60) mg/L FEU ABG pO2 67 L (83-108) mmHg ABG Total CO2 25 H (19-24) mmol/L ABG O2 Saturation 92.8 L (94-97) % Sodium 133 L (137-145) mmol/L BUN 31 H (7-17) mg/dL Creatinine 3.80 H (0.52-1.04) mg/dL Glucose 100 H (74-99) mg/dL POC Glucose (mg/dL) (75-99) mg/dL Ferritin 1514.8 H (10.0-291.0) ng/mL Lactate Dehydrogenase 1016 H (313-618) U/L C-Reactive Protein 13.6 H (<1.0) mg/dL Total Protein 5.1 L (6.3-8.2) g/dL Albumin 2.4 L (3.5-5.0) g/dL Procalcitonin (0.02-0.09) ng/mL Microbiology - Last 24 Hours (Table) 10/02/20 23:10 Sputum Culture - Preliminary Sputum 09/28/20 09:45 Blood Culture - Preliminary Blood No Growth after 96 hours 09/28/20 09:45 Blood Culture - Preliminary Blood No Growth after 96 hours
[2020-10-03 12:12] LABS: Glucose,Whole Blood 170 mg/dL (75-99)
[2020-10-03] MEDS: CISATRACURIUM 200 MG in SODIUM CHLORIDE 0.9% 180 ML IV SCH (12:17)
--- NOTE | 2020-10-03 12:51 | PN ---
PROGRESS NOTE Patient is seen for followup for acute kidney injury. She currently remains on the vent. The patient was dialyzed yesterday. We had about 3.5 L of fluid removed yesterday. The patient remains on 55% FiO2. She is not examined. Case is discussed with nursing staff. Blood pressure 119/61, heart rate 105 per minute. She is afebrile. The patient remains edematous upper and lower extremities. She is tolerating tube feeds. LABS: Reviewed. Sodium 133, potassium 3.5, chloride 100, BUN 31, creatinine 3.8. ASSESSMENT: 1. Acute kidney injury, acute tubular necrosis, currently oliguric and hemodialysis dependent. We will maintain her on a Friday, Friday, Friday schedule. Plan for dialysis tomorrow. If there is significant change in the vent after dialysis tomorrow, we will plan for consecutive treatments again for ultrafiltration. 2. Metabolic acidosis, improved post dialysis. 3. Volume overload. 4. Covid pneumonia. PLAN: Hemodialysis in a.m. if there is significant improvement in vent settings and oxygenation post dialysis tomorrow, we will plan for another consecutive treatment. In the meantime, we will try to remove about 3-3.5 L tomorrow. MMODL / IJN: [id number] /
--- NOTE | 2020-10-03 13:27 | P.PN ---
Subjective Progress Note Date: 10/03/20 HISTORY OF PRESENT ILLNESS 35-year-old female patient of Dr. Arroyo with past medical history of type 2 diabetes comes in with acute shortness of breath associated with high light s ugars. Patient on admission was found to have a fever of 101.5 pulse rate 125 respiratory rate 20. Blood pressure 132/106. On chest x-ray obtained in the ER suggestive of bilateral infiltrates concerning for call with pneumonia. COVID PCR was positive. On admissions patient had an ABG with a pH of 7.14 pCO2 of 20, pO2 of 59, bicarb of 7. Patient's blood sugar on admission was 424 on assessment today patient's blood work patient had a sodium 135 potassium 5.4 chloride 123 bicarb less than 5 and creatinine 0.73. D-dimer was elevated on admission patient 9 28 patient given 1 L of IV fluids followed by normal saline running at 200 mL/h. Patient was positive for acetone on admission. She will anion gap closed and was switched to D5NS. Insulin drip was continued during the night and was switched to patient's home medication this morning. One dose of remdesiver was ordered. Apparently around noon, A- team was called on the patient secondary to hypoxia patient's oxygen saturation dropped to the 70s and 80s on 100% nonrebreather. Patient was switched to BiPAP on 18/12 and is doing better o FiO2 of 80%. ABG was obtained and ph was 7. 14 pCO2 of 28 bicarb of 7 pO2 of 17. Patient noted to have uncompensated metabolic acidosis with compensated respiratory alkalosis. Stat dose of 1 amp bicarb was given and followed by sodium bicarbonate drip. Insulin drip restarted. Patient's initiated on dexamethasone 6 mg IV twice a day. Potassium phosphate ordered as phosphorus is low. Patient's repeat blood gases suggest a pH of 7.25, CO2 32 pO2 of 72 bicarb 14. I will not normal saline at 100 mL/h as patient's anion gap has increased. Patient given 1 dose of 2 mg of morphine with improvement in respiratory rate. One dose of Ativan 0.5 mg was given. Xanax 0.25 twice a day along with Ativan 0.5 IV every 6 hours ordered for the patient. Vitals were evaluated patient pulse 129 [id number]. She was moved to the ICU. Precedex drip was initiated. Lopressor was initiated at 25 twice a day. Metoprolol tartrate 5 mg IV every 6 hours. Systolic blood pressure more than 160. Started chest x-ray was obtained and suggest stable bilateral consolidation suggestive of COVID-19 pneumonia. 09/12 patient is seen in the ICU is currently mechanically ventilated and sedated on vent settings of respiratory rate 36, tidal volume 375 FiO2 80% PEEP of 18.. Vital signs reviewed patient had a temp of 100.4 pulse 150 respiratory rate 36 oxygen saturation 95% on 80% on fio2 .'s labs are reviewed which patient had a d-dimer 1.84 that is increased to 14.3. Arterial Blood gas suggest ph 7.35, CO2 40, po2 62, . Her BMP suggest a sodium 135 potassium 3.7 chloride 112 bicarb 21 creatinine 1.57 for calcitonin is 3.5 CRP is increased from 8.78.2 LDH is increased to 2614. Patient remains on Pneumovax, propofol drip. Lovenox increased to 50 subcu twice a day. Patient received 2 L of IV fluids. Continue IV fluids at 100 mL/h. Bicarb drip discontinued patient initiated on Zosyn 3.375 every 8 hours. Continue insulin drip at 4 units per hour. Patient is currently in prone positioning 09/13: Patient evaluated in the ICU remains on Ventilation continues to be sedated, in prone position. Vent settings are respiratory rate 36, tidal vital 375, FiO2 70% PEEP of 18. ABG shows pO2 of 82, PCO2 of 39, pH is 7.19. Latest labs show WBC 11.1, hemoglobin 13.2, d-dimer still pending, but yesterday was up to 14.3. Creatinine up to 3.4, BUN 24 sodium 137, potassium 4.0. Patient's urine output has been low, nephrology on consult. Bicarb drip increased to 100 miles an hour, receiving another liter of normal saline, she did have a ultrasound that showed unremarkable bilateral kidneys. Repeat chest x-ray showed bilateral lung infiltrates that are stable. Anion gap has closed, will start Lantus 10 units at at bedtime Novolog every 6 hours. 09/14: Patient is seen in the ICU, still currently mechanically ventilated and sedated. She continues in the prone position. Her oxygen quickly drops if she is not in prone. Patient's kidney function has worsened. Laboratory values show creatinine of 4.87, BUN 33, LDH 2191, C-reactive protein 2.7. ABG shows pH 7.32, pO2 of 60, pCO2 43. Patient is making almost no urine overnight. Nephrology is following patient continues on cefepime for urinary tract infection, culture is still pending. Vascular has been consulted for placement of temporary hemodialysis catheter for plans for dialysis. 09/15: Patient evaluated in the ICU, continues to be mechanically ventilated and sedated on assist control ventilation rate of 36, tidal volume 375, FiO2 100% and PEEP of 18. ABG today shows pO2 58, pCO2 of 45, and pH 7.35. She continues on tube feedings. Yesterday patient underwent ultrasound-guided right internal jugular non-tunneled hemodialysis catheter placement. Patient underwent hemodialysis treatment last night and plans have another hemodialysis treatment today. She continues to make almost no urine. She continues on cefepime for antibiotic coverage, and continues on Decadron and Lovenox. 09/16: Patient seen on follow-up remains in the ICU mechanically ventilated and sedated. She continues on assist control rate of 36, tidal volume 375, FiO2 100% and PEEP of 20. PEEP had to be increased due to patient had to be in supine position for dialysis, will go back to prone position once dialysis is complete. ABG shows pH 7.32, pCO2 49, PaO2 61. Laboratory values showed WBC 11.2, hemoglobin 11, sodium 134, creatinine 4.44, BUN 38. Urine culture shows no growth, blood cultures show no growth to date. Repeat chest x-ray shows bilateral pleural effusions, correlate for ARDS, pulmonary edema, diffuse pneumonia, findings are stable from last exam. Patient does not require any pressors, blood pressure 133/57, heart rate 78. 5/16: Patient was evaluated in the ICU today for follow-up. She continues to be intubated and on mechanical ventilation. Current vent settings are tidal volume 375, FiO2 100% and PEEP of 20. ABG shows pH 7.37, pCO2 40, pO2 102. She continues with intermittent prone positioning. Patient continues to have almost no urine output, maintained on dialysis. Patient received dialysis yesterday without complication. Laboratory values revealed WBC 10.3, hemoglobin 10.4, sodium 132, potassium 3.1, BUN 33, creatinine 4.29, LDH 1913, C-reactive protein 1.3. Urine and sputum cultures are negative, blood cultures show no growth to date. Consult placed to dietary to start TPN[ ] 09/18: She remains in the intensive care unit intubated and on mechanical ventilation with tidal volume 375, FiO2 60 and PEEP of 20. Patient is being prone to daily at approximately 16 hours per day. Pulmonary medicine has added in Dr. Zhang to do PEG tube and trach today. Patient is not on vasopressors. Repeat blood work reveals WBC 12.6, hemoglobin 9.8, platelet count 212. Sodium 133, potassium 3.2, chloride 102, CO2 21, BUN 35 and creatinine 4.12. Blood sugar 126. Patient underwent hemodialysis yesterday with removal of 2 L and is scheduled again today with goal of 2-3 L and is scheduled again tomorrow. 09/19: She is scheduled for hemodialysis today and is off fentanyl temporarily. Patient is status post trach and PEG tube yesterday. And she remains on mechanical ventilation. Pulse ox 93-95%. She has been afebrile, heart rate 64, respiratory rate 36, blood pressure 115/50. Fentanyl is off to improve blood pressure for hemodialysis which is scheduled for today. Contacted vascular surgery about permanent hemodialysis catheter. Repeat blood work reveals WBC 14.3, hemoglobin 9.6, platelet count 200. D-dimer 6.48. LDH 1686. C-reactive protein 1.1. BUN 34 creatinine 3.81. Sodium 130, potassium 3.5, chloride 101, CO2 18. Blood sugars running between 101 198. Plan is to wean off Pneumovax today. Patient remains on insulin drip. Repeat chest x-ray reveals bilateral multifocal confluent opacities consistent with COVID-19. Some improved aeratio n periphery of the left lung and worsening opacities throughout the right lung. 09/20: She remains in the intensive care unit on mechanical ventilation. She has been afebrile, heart rate 65, respiratory rate 37, blood pressure 121/70, pulse ox 91-99%. Repeat blood work reveals WBC 14.5, hemoglobin 9.1, platelet count 216. D-dimer 6.13. Sodium 133, potassium 3.1, chloride 102, CO2 18, BUN 35 and creatinine 4.27. Blood sugars running between 128 and 143. LDH 1717. C- reactive protein 1.7. Patient remains on insulin drip which will be transitioned to NovoLog scale every 6 hours. Patient is scheduled for permanent hemodialysis catheter placement today with vascular surgery. Repeat chest x-ray reveals stable diffuse bilateral interstitial and airspace disease. Possible small right effusion. His work is following for transfer to long-term care facility. Do not anticipate discharge until next week. 09/21: Patient is undergoing hemodialysis. She remains on mechanical ventilation with tidal volume 375, FiO2 down to 45 and PEEP was decreased to 15. Patient is continued on propofol, fentanyl drips. She is on tube feedings at goal. Patient was taken off insulin drip yesterday and on scale only but blood sugars are running in the 200s, Levemir scheduled at bedtime will be added. Other blood work reveals WBC 13.3, hemoglobin 8.7, platelet count 192. Sodium 137, potassium 3.6, chloride 107, CO2 18, BUN 34 and creatinine 4.21. Repeat chest x-ray is stable. 09/22: She remains in the intensive care on mechanical ventilation with tidal volume 375, FiO2 of 50 and PEEP of 10. Pulse ox is running 96%. She is afebrile, heart rate in the 50s, respiratory rate 36, blood pressure 100/64. Repeat blood work reveals WBC 16.5, hemoglobin 8.9, platelet count 213. Sodium 134, potassium 3.7, chloride 103, CO2 21, BUN 34 and creatinine 3.89. Blood sugars running in the 200s to 324. Levemir increased to 16 units at bedtime and continue NovoLog scale every 6 hours. Patient is on tube feedings at goal. She has a Haley catheter in with a scant amount of dark/brown urine. Fecal management system is in place. Repeat chest x-ray reveals diffuse bilateral airspace infiltrates persist unchanged. Patient is scheduled for hemodialysis tomorrow morning on Friday. 09/23: Patient remains on mechanical ventilation with tidal volume 3.75, FiO2 50 and PEEP of 10. ekg monitor tech sinus rhythm. She has no urine output. Fecal management system is in place. She is undergoing dialysis at this time with plan for removal of 2-1/2 L. She has been afebrile, heart rate in the 50s, respiratory rate 36, blood pressure 108/76 and pulse ox 89%. WBC 13.6, hemoglobin 9.1, platelet count 194. Sodium 136, potassium 3.0 and was replaced, chloride 106, CO2 21, BUN 49 creatinine 5.31. Blood sugars are running between 182 and this morning 194. Patient was still in the 200s and 300s. Levemir last evening was increased to 16 units. Patient remains on propofol and fentanyl drips. Lovenox was increased to 60 mg twice daily. 09/24: PEEP was increased today to 20, tidal volume is at 375 and FiO2 of 50%. Patient has been afebrile. She has been started on levo fed. Repeat chest x- ray reveals bilateral multifocal confluent opacities consistent with Covid 19 or ARDS redemonstrated. Nephrology will plan dialysis for tomorrow for 3 L. Patient remains on propofol fentanyl and Nimbex. WBC 12.5, hemoglobin 9.8, platelet count 161. D-dimer 13.3. Sodium 132, potassium 3.4, chloride 102, CO2 20, BUN 48 and creatinine 4.67. Blood sugars extremely elevated to 96-409. LDH 2217. 09/25: Patient remains in the intensive care unit on mechanical ventilation with tidal volume 375, FiO2 50 and PEEP of 20. Patient is afebrile, heart rate 61, respiratory rate 36, blood pressure 102/56, pulse ox 97%. Repeat blood work reveals WBC 9.3, hemoglobin 8.5 and platelet count 171. Sodium 130, potassium 3.7, chloride 100, CO2 20, BUN 61 creatinine 5.65. Blood sugars have been elev ated up to 455. Levemir increased to 20 units twice daily, NovoLog 5 units every 6 hours and continue NovoLog scale. Patient is scheduled for hemodialysis today. Repeat chest x-ray reveals bilateral multifocal and confluent opacities. Decadron and Lovenox dosing change by pulmonary. Patient is off norepinephrine. 09/26: Patient remains in the intensive care unit on mechanical ventilation with tidal volume 375, FiO2 50 and PEEP of 15. She has been afebrile, heart rate 91, blood pressure 114/68, pulse ox 99%. ekg monitor tech sinus rhythm. 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 Sodium 134, potassium 3.6, chloride 102, CO2 22, BUN 41 creatinine 4.21. Patient has improved blood sugars this morning running 150s and 160s. Diabetic medications were adjusted yesterday. Patient is awake and alert and interacting. Yesterday, patient had PICC line inserted by interventional radiology. Repeat chest x-ray reveals diffuse airspace infiltrates in both lung ann appear to progress slightly in the interval. 09/27: Patient remains in intensive care unit on mechanical ventilation with improvement of settings with tidal volume 375, FiO2 decreased to 40 and PEEP decreased to 10. Patient is on hemodialysis every other day and plan to remove 3 L today. Patient is more awake and alert. She is slow to respond but is able to follow simple commands. Blood sugars are running between 84 and 123. Repeat blood work reveals WBC 7.1, hemoglobin 8.1, platelets 152. Sodium 135, potassium 3.6, chloride 103, CO2 21, BUN 53 and creatinine 5.88. Repeat chest x-ray revealed cardiomegaly and pulmonary edema. Patient is on tube feedings:. Patient is not require vasopressors and is off sedation. Fecal management system remains in place for brown liquid stool. C. difficile was negative. 09/28: Patient remains on mechanical ventilation with tidal volume 375, FiO2 increased to 80 and PEEP increased to 18. Patient had a rough night was very anxious, no pain. Xanax 0.25 mg 3 times daily was added. There is concern for pulmonary embolism for which patient was started on heparin drip, she is unable to undergo CAT scan. Venous Doppler bilateral lower extremities was nondiagnostic due to extensive edema in obese patient but minimal imaging of the popliteal veins does show flow. Repeat echocardiogram has been ordered. Cefepime has also been ordered at 1 g IV piggyback every 24 hours as well as vancomycin, pharmacy dosing. Patient is back on fentanyl drip, propofol drip and norepinephrine. Blood sugars are elevated and insulin Levemir will be i ncreased to 25 mg twice daily. Ferrlecit infusion has been ordered by nephrology for 4 days. Patient is undergoing hemodialysis today.temperature max 100.2, heart rate 134, respiratory rate 34, blood pressure 120/65, pulse ox 94%. ekg monitor tech is sinus tachycardia. Repeat blood work reveals WBC 16.9, hemoglobin 9.7, platelet count 216. D-dimer 8.81. Sodium 134, potassium 3.8, chloride 99, CO2 25, BUN 43 and creatinine 5.36. Blood sugars in the 200s. AST 40. 09/29 Patient had declined more last 48 hours require more sedation, patient is doing hemodialysis, respiratory failure is quite bit worse this time. Patient was inquired the pain is well back on fentanyl drip. Her vent set up with PEEP is limited but higher. No new finding on culture and her chest x-ray continues shows diffuse infiltrate persistent although there is a moderate interval improvement. 09/30 patient's was seen and evaluated. PEEP was reduced to 11 as patient is maintaining good saturation at the current vent settings. 10/01 patient was seen at bedside. She is currently on assist control rate of 28 white tidal volume 350 FiO2 50% and PEEP of 10 which has been reduced by pulmonary as patient name cleaning her oxygen saturation. Arm blood gas was obtained with a pH of 7.35 pCO2 37 pO2 of 63. She remains hemodynamically stable with no need for pressors. Labs were reviewed patient's BUN is 29 crea tinine 3.93 glucose 122 albumin 2.2 sodium 131 chloride 19 hemoglobin is downtrending with a Hb of 7.3 no leukocytosis 7.1. Patient's urine output is minimal at this time. Her rate has increased to 129 and is currently on positive fluid balance even with dialysis. Last dialysis was done yesterday. Continue enteral feeding currently at goal. Antibiotic has been discontinued and continues to remain on DEXA methicillin 4 mg IV daily. 10/02 patient continues to be on trach support with mechanical ventilation. Patient was evaluated by looper operator and was switched to VC control as patient was noted to be double stacking on and off throughout the night. Respiratory rate continue to 28 tidal volume increased to 400 with a PEEP for Dr. Downey. Patient is maintaining oxygen saturation 91% on the current setting. According to the nurse bedside patient saturation drops significantly or she is moved or her sedation is dropped. Patient is currently on propofol drip, fentanyl drip. She did underwent dialysis today and was able to maintain her low pressure without the need of pressors. Labs reviewed today suggest a WBC of 6.7 hemoglobin of 7.0 and d-dimer 3.9 bicarb 17 BUN 38 creatinine 4.8. LDH is 964. Sodium 1:30 likely secondary to volume overload. Urine sodium and urine osmolality ordered. Patient's glucose this morning is 146. Continue to remain on enteral feeding. Urine output is reduced. Fall catheter will be placed today. Continue to remain on dialysis. 10/03: Patient remains on mechanical ventilation and is back on propofol and fentanyl drips. Patient is currently on VC control with tidal volume 400, FiO2 55 and PEEP of 12. Patient still is not making any urine and is dialysis dependent with next treatment planned for tomorrow with removal of 3-3-1/2 L. PEG tube feedings are at goal. Fecal management system remains in place. At the time of evaluation, patient is off levophed. Repeat chest x-ray reveals stable diffuse bilateral airspace disease correlate for ARDS, pulmonary edema or diffuse pneumonia. Temperature max last evening was 101. Temperature currently 99, heart rate 106, respiratory rate 32, blood pressure 101/50, pulse ox 86%. Repeat blood work reveals WBC 6, hemoglobin 7.4, platelet count 160. D-dimer 4.05. Sodium 133, potassium 3.5, chloride 100, CO2 23, BUN 31 creatinine 3.8. Blood sugars are running between 100 and 170. Ferritin 1514. Liver function test normal. LDH 1016, C-reactive protein 13.6. Prognosis remains guarded. REVIEW OF SYSTEMS Unable to obtain due to mechanical ventilation. PHYSICAL EXAMINATION Gen: This is is a 35-year-old black female, patient is intubated and on mechanical ventilation, appears to be comfortable. HEENT: Head is atraumatic, normocephalic. NEUROLOGICAL: Patient is sedated. Full physical examination deferred to looper operator due to Covid 19 and intubation. ASSESSMENT AND PLAN 1. Acute hypoxic respiratory failure secondary to Covid 19 pneumonia and possible bacterial pneumonia. Patient was intubated on September 11. She is status post 1 dose of Remdesivir and 1 dose of Tocilizumab. Continue Ventolin inhaler 4 times daily, Symbicort twice daily, Decadron 4 mg IV daily, Lovenox 30 mg subcu daily, supplements. Status post PEG tube and trach. 2. Acute diabetic ketoacidosis secondary to Covid 19 pneumonia, uncontrolled with hyperglycemia. Levemir 25 units twice daily, scheduled NovoLog 5 units every 6 hours and NovoLog scale. 3. Metabolic encephalopathy secondary to Covid 19 and DKA. 4. Sepsis and septic shock secondary to Covid 19 pneumonia. Continue as in #1. 5. Acute metabolic acidosis secondary to acute DKA, Covid 19 and acute kidney injury. 6. Diabetes mellitus type 2 uncontrolled with A1c 13.6. Continue as above. 7. Hypophosphatemia status post replacement. 8. Hyperkalemia secondary to DKA, resolved. 9. Sinus tachycardia secondary to sepsis, volume deficiency.Continue Lopressor 25 mg twice daily. 10. Acute kidney injury secondary to ATN secondary to Covid 19 and DKA. Patient continued on hemodialysis. Permanent dialysis catheter placed. 11. Possible acute gram-negative pneumonia versus MRSA pneumonia. 12. Hypertension. 13. Morbid obesity with BMI of 53. 14. DVT prophylaxis. Lovenox. 15. GI prophylaxis. Protonix 40 mg IV push daily. CODE STATUS: Full code Prognosis guarded. DISCHARGE PLAN Mop Worker Acute Care Impression and plan of care have been directed as dictated by the signing physician. Kimberly Boswell nurse practitioner acting as scribe for signing physician. Objective - Vital Signs Vital signs: Vital Signs Temp 99.3 F 10/03/20 08:00 Pulse 105 H 10/03/20 10:00 Resp 32 H 10/03/20 10:00 BP 99/48 10/03/20 10:00 Pulse Ox 93 L 10/03/20 10:00 Intake & Output 10/02/20 10/03/20 10/03/20 18:59 06:59 18:59 Intake Total 7390.650 9109.574 545.693 Output Total 3500 1100 Balance -8100.968 8314.574 -554.307 Weight 123.7 kg Intake: IV 279 286 95 0.9 Normal Saline @ KVO 240 220 80 0.9 Normal Saline 39 66 15 Pressure Bag Intake, IV Titration 801.167 566.574 300.693 Amount Norepinephrine 8 mg In 169.854 55.264 Sodium Chloride 0.9% 250 ml @ 0.05 MCG/KG/MIN 11. 61 mls/hr IV .[id number] [facility] Rx#:[id number] fentaNYL (PF) 2,500 mcg 501.167 145.429 In Sodium Chloride 0.9% 200 ml @ Per Protocol IV .Q0M [facility] Rx#:[id number] propofoL 1,000 mg In 300 396.72 100 Empty Bag 1 bag @ Per Protocol IV .Q0M [facility] Rx#: [id number] Tube Feeding 420 360 120 Other 90 90 30 Output: Urine 0 Stool 1100 Hemodialysis 3500 Other: Voiding Method Indwelling Catheter # Voids 0 0 ABP, PAP, CO, CI - Last Documented Arterial Blood Pressure 119/61 - Labs CBC & Chem 7: 10/03/20 03:50 10/03/20 03:50 Labs: Abnormal Lab Results - Last 24 Hours (Table) 10/02/20 10/02/20 10/02/20 Range/Units 06:00 11:34 13:11 RBC (3.80-5.40) m/uL Hgb (11.4-16.0) gm/dL Hct (34.0-46.0) % RDW (11.5-15.5) % Lymphocytes # (1.0-4.8) k/uL D-Dimer (<0.60) mg/L FEU ABG pO2 58 L* (83-108) mmHg ABG Total CO2 26 H (19-24) mmol/L ABG O2 Saturation 89.2 L (94-97) % Sodium (137-145) mmol/L BUN (7-17) mg/dL Creatinine (0.52-1.04) mg/dL Glucose (74-99) mg/dL POC Glucose (mg/dL) 160 H (75-99) mg/dL Ferritin (10.0-291.0) ng/mL Lactate Dehydrogenase (313-618) U/L C-Reactive Protein (<1.0) mg/dL Total Protein (6.3-8.2) g/dL Albumin (3.5-5.0) g/dL Procalcitonin 1.49 H (0.02-0.09) ng/mL 10/02/20 10/02/20 10/03/20 Range/Units 17:46 23:54 03:50 RBC 2.59 L (3.80-5.40) m/uL Hgb 7.4 L (11.4-16.0) gm/dL Hct 22.0 L (34.0-46.0) % RDW 16.0 H (11.5-15.5) % Lymphocytes # 0.6 L (1.0-4.8) k/uL D-Dimer (<0.60) mg/L FEU ABG pO2 (83-108) mmHg ABG Total CO2 (19-24) mmol/L ABG O2 Saturation (94-97) % Sodium (137-145) mmol/L BUN (7-17) mg/dL Creatinine (0.52-1.04) mg/dL Glucose (74-99) mg/dL POC Glucose (mg/dL) 138 H 154 H (75-99) mg/dL Ferritin (10.0-291.0) ng/mL Lactate Dehydrogenase (313-618) U/L C-Reactive Protein (<1.0) mg/dL Total Protein (6.3-8.2) g/dL Albumin (3.5-5.0) g/dL Procalcitonin (0.02-0.09) ng/mL 10/03/20 10/03/20 10/03/20 Range/Units 03:50 03:50 05:52 RBC (3.80-5.40) m/uL Hgb (11.4-16.0) gm/dL Hct (34.0-46.0) % RDW (11.5-15.5) % Lymphocytes # (1.0-4.8) k/uL D-Dimer 4.05 H (<0.60) mg/L FEU ABG pO2 67 L (83-108) mmHg ABG Total CO2 25 H (19-24) mmol/L ABG O2 Saturation 92.8 L (94-97) % Sodium 133 L (137-145) mmol/L BUN 31 H (7-17) mg/dL Creatinine 3.80 H (0.52-1.04) mg/dL Glucose 100 H (74-99) mg/dL POC Glucose (mg/dL) (75-99) mg/dL Ferritin 1514.8 H (10.0-291.0) ng/mL Lactate Dehydrogenase 1016 H (313-618) U/L C-Reactive Protein 13.6 H (<1.0) mg/dL Total Protein 5.1 L (6.3-8.2) g/dL Albumin 2.4 L (3.5-5.0) g/dL Procalcitonin (0.02-0.09) ng/mL Microbiology - Last 24 Hours (Table) 10/02/20 23:10 Sputum Culture - Preliminary Sputum 09/28/20 09:45 Blood Culture - Preliminary Blood No Growth after 96 hours 09/28/20 09:45 Blood Culture - Preliminary Blood No Growth after 96 hours
--- NOTE | 2020-10-03 16:22 | P.PN ---
Subjective Progress Note Date: 10/03/20 Principal diagnosis: Acute hypoxic respiratory failure secondary to COVID-19 pneumonia and ARDS secondary to COVID-19 pneumonia This is a 55-year-old -[place] female with history of type 2 diabetes, admitted today through the emergency room with a few days' history of increased shortness of breath, cough, fever, chest x-ray in the ER showed bilateral infiltrates consistent with COVID-19 pneumonia in the patient had positive PCR for COVID-19 infection. Patient had significantly abnormal labs on admission, she had an extremely low bicarb, extremely low pH, and marginal oxygenation at best. Patient was admitted to the regular medical floor, and I happened to be rounding on that same floor were and I was notified about this patient having worsening respiratory distress. Evaluated the patient, clearly the patient has DKA and she clearly has acute hypoxic respiratory failure secondary to COVID-19 pneumonia. As soon as I laid eyes on the patient, recommended immediate transfer to the ICU. Patient was placed on BiPAP however she did not tolerate BiPAP well, and when I went back to evaluate the patient in the ICU, she was basically deteriorating, and she was using her accessory muscles, patient was in severe respiratory distress. Hence I recommended immediate intubation and placement on mechanical ventilation. Chest x-ray continued to show bilateral in filtrates consistent with worsening COVID-19 pneumonia ABG showed a pO2 of 59 pCO2 of 42 pH of 7.05 and this was on the 100% FiO2 20 of PEEP tidal volume of 375 rate of 36. Patient will be given more bicarb and she is already on a bicarb drip. She is receiving insulin and she is also receiving IV fluids in the form of 0.9 normal saline. Sugars were 384. Inflammatory markers were added to be extremely high, LDH 8, and C-reactive protein of 8.7. D-dimer was borderline elevated at 1.84. On 09/12/2020 patient seen in follow-up in the intensive care unit, yesterday she was emergently transferred to the intensive care and intubated and placed on mechanical ventilator. She remains intubated, sedated on mechanical ventilator, currently on assist control mode of ventilation with a rate 36, tidal vital 375, FiO2 100% and PEEP of 20. This might blood gas reveals pO2 of 62, pCO2 40, pH of 7.35 this was done on FiO2 of 80%, her peak airway pressure is 35, in her plateau pressure is around 32. she is sedated on Diprivan and 60 mics per kilo per minute, 0.9 normal saline at 100 ML per hour, insulin drip is at 4 units per hour, and she has 5% dextrose with 3 units of bicarbonate at 100 ML per hour. Today's labs have been reviewed, showing white blood cell count 10.3, hemoglobin of 14.4, d-dimer has increased to 14.31, and her Lovenox was adjusted and increased to 50 mg twice daily, sodium is 137, potassium is 3.7, chloride is 112, CO2 is up to 21, BUN of 16 creatinine is 1.57, LDH is 2618, CRP is 18.2. Pro-Calcitonin level came back elevated at 3.53, suggesting possibility of bacterial infection She received a liter bolus yesterday after intubation. We will give the patient additional fluid boluses today. Sputum culture has been sent and is pending, blood cultures have been sent. Patient has been placed in prone position at 8:00 last night, and her oxygenation seems to be improved and she satting 97% on 100% FiO2 and subsequently FiO2 was dropped down to 80%, and PEEP is down to 18. She remains in prone positioning, tolerating it well, she is having low-grade fevers, she is in sinus mechanism with tachycardic on the monitor, not requiring any vasopressor support right now, will start tube feedings today when the patient is placed back over in the supine position On 09/13/2020 patient seen in follow-up in intensive care unit, she remains proned, and at the time of our evaluation patient has already been prone for close to 16 hours and is about to be turned back on her spine. She tolerates prone position quite well, she remains intubated, paralyzed and sedated on mechanical ventilator, current vent settings are assist-control mode of ventilation with a rate of 36, tidal volume 375, FiO2 of 70% and PEEP of 18, this point his blood gases show pO2 of 82, pCO2 of 39, and pH of 7.19. She's currently on D5 W with 3 A of bicarbonate at 75 per hour, Diprivan is a 60 mics per kilo per minute, index is at 2 mics per kilo per minute, and insulin drip is at 6 units per hour, patient has not started tube feedings yet. She is in sinus mechanism, hemodynamically stable, not requiring any vasopressor support. Today's chest x-ray has been reviewed showing bilateral lung infiltrates that appear to be stable. Today's labs have been reviewed showing white blood cell count of 11.1, hemoglobin 13.2, d-dimer is pending, yesterday his d-dimer was 14.3, patient's Lovenox dose was increased to 50 mg every 24 hours. Her renal function continued to worsen, and her creatinine is up to 3.4 on today's labs, BUN is 24, were bicarb concentration is only 13 on today's labs, sodium is 137, potassium is 4.0. AST is up to 77, ALT and alk phos are within normal limits, yesterday set him inflammatory markers with showing up trending LDH at 2618, and CRP of 18.2. Her pro-calcitonin level was increased yesterday at 3.53 and we added empiric antibiotics in the form of Zosyn. Sputum culture has been sent and has shown no growth. Overnight patient remained oliguric, yesterday we gave her additional fluids, however did not improve her renal function and her kidney function continued to get worse. Nephrology consultation has been requested, she has only been producing urine in the order of 5-10 ML per hour, renal ultrasound has been obtained showing no evidence of hydronephrosis bilaterally. On 09/14/2020 patient seen in follow-up in intensive care unit, she remains intubated, sedated and paralyzed, currently on assist control mode of ventilation with a rate of 36, tidal vital 375, FiO2 of 60% and PEEP of 18. This morning's blood gas was reviewed showing pO2 of 60, pCO2 of 43, and pH of 7.32. This was done on FiO2 of 70%, her peak airway pressure is 40, plateau pressures 26. She is currently on D5 with 3 A of bicarbonate at 100 ML per hour , insulin drip is at 7 units per hour, fentanyl drip is a 0.5 mics per kilo per hour, Diprivan and is at 50 mics per kilo per minute, and index is at 2 mics per kilo per minute. She is tolerating tube feedings of vital high-protein at 27 with a goal 27 standard water flushes. Today's chest x-ray has not been completed yet, because the patient has been in prone position for last 16 hours. Patient tolerates prone in quite well, and her oxygenation improves when she is in prone position. However when she is turned over in the supine position to complete chest x-rays and ADL's, patient's O2 sat drops down to low 80s and her FiO2 requirement increases at that time. Today's labs have been reviewed, and there has been further worsening of her renal function, and patient has made almost no urine overnight. Her BUN is 33, and creatinine is 4.87, nephrology is following, her renal ultrasound showed no evidence of hydronephrosis. Her urinalysis showed possibility of urinary tract infection, and patient has been started on cefepime. Urine culture is pending at this time, blood and sputum cultures have been negative. No fevers overnight, she's not requiring any vasopressor support. On 09/15/2020 patient seen in follow-up in intensive care unit, she remains intubated, sedated and paralyzed on assist-control mode of ventilation with a rate of 36, tidal vital 375, FiO2 100% and PEEP of 18, this morning's blood gas reviewed showing pO2 of 58, pCO2 of 45, and pH is 7.35, this was done on FiO2 of 100%. Her peak airway pressures 44, plateau pressures 38, she is on 0.9 normal saline at 50 ML per hour, Diprivan is a 40 mics per kilo per minute, Nimbex drip is a 2 mics per kilo per minute, and fentanyl drip at 0.5 mics per kilo per hour, she is tolerating tube feedings with vital high-protein is 27 with a goal of 27 standard water flushes. She is in sinus mechanism with a rate of 73, she is hemodynamically stable and not requiring any vasopressors. Today's chest x- ray shows ARDS, bilateral airspace opacities, no significant pleural effusion and no pneumothorax. Today's labs have been reviewed, white blood cell count is 9.9, hemoglobin is 11.3, sodium is 134, respiratory electrolytes were within normal limits, and there has been further worsening of her renal function with BUN of 34, creatinine is 4.78, her urine output has remained very poor. Last night she had her first hemodialysis session and no fluid was removed, this morning she is having another hemodialysis treatments and the goal is to remove half a liter of fluid. Her sputum, blood and urine cultures remained negative thus far, patient's pro-calcitonin level came back significantly elevated at 23.5 suggesting evidence of bacterial infection. Patient remains on cefepime for antibiotic coverage, she also remains on Decadron milligrams twice daily, and Lovenox is 50 mg every 24 hours. The patient is seen today 09/16/2020 in follow-up in the intensive care unit. She remains intubated on the mechanical ventilator. Current settings assist- control at a rate of 36, tidal volume 3 or 75, FiO2 100% and a PEEP of 18. Morning blood gases reveal a pO2 of 61, pCO2 49, pH 7.32. Peak pressures of 48, plateau pressure 43. Chest x-ray continues to show evidence of ARDS, pulmonary edema, diffuse pneumonia. She was not proned last night. The plan is to receive hemodialysis again today. Ultrasound of the chest did not reveal any significant fluid for thoracentesis. Sedated on propofol at 50 mcg/kg/m, fentanyl at 0.5 mcg/kg per hour, Nimbex at 3 mcg/kg/m. Insulin drip at 4 units per hour. She is being nourished with vital HPI at 36 ML's per hour. 0.9 normal saline at 60 ML's per hour. Blood, sputum and urine cultures reveal no growth. White count 11.2. Hemoglobin 11.0. Sodium 134. Potassium 3.4. Creatinine 4.44. Glucose 164. She remains in sinus rhythm. She is continued on Symbicort, albuterol. Antibiotics in the form of cefepime. Remains on Decadron, Lovenox, vitamin supplements. Reevaluated today on 09/17/2020, remains in the ICU, intubated and mechanically ventilated. Patient is on assist control rate of 36 tidal volume 350 FiO2 80% and will cut it down to 70% PEEP is at 20. ABG showed a pO2 of 102 pCO2 of 40 pH of 7.37 and this was on a 90% FiO2 now her FiO2 is down to 70%. Patient remains on hemodialysis, and she is receiving hemodialysis daily. She is on Nimbex at 30 mcg/kg/m, he is also on fentanyl at 0.5 mg/kg/h insulin at 6 units per hour propofol at 50 mcg/kg/m patient has been in prone position almost at least 16 hours per day. Remains on enteral feeding and would've may consider TPN in addition to her enteral feeding if not meeting her total caloric requirements. Patient remains on cefepime. Decadron and Lovenox. Chest x-ray continues to show significant bilateral interstitial infiltrates. WBC count is 10.3 hemoglobin is 10.4, basic metabolic profile showed low potassium of 3.1 being addressed by nephrology BUN is 33 creatinine 4.29. LDH is coming down a bit 1912 C-reactive protein is coming down to 1.3. Patient was reevaluated today on 10/03/2020, remains in the ICU, intubated and mechanically ventilated. She is on assist control rate of 28 tidal volume 400 FiO2 60% PEEP is at 10 I went ahead and increased the PEEP to 12, FiO2 cut down to 55% ABG showed a pO2 of 67 pCO2 of 38 pH of 7.41. Patient remains on propofol at 45 mcg/kg/m, fentanyl at 0.7 mcg/kg/h, she is on enteral feeding using vital AF. She is up to goal. Patient remains on hemodialysis 3 days a week, she had hemodialysis yesterday and 3.5 L were taken off. Patient has multiple lines including dialysis catheter, PICC line, and arterial line. Patient is arousable, however she gets extremely agitated, and starts gagging and desaturating. Hence not ready for any weaning, and I kept her on the ventilator settings as noted earlier. Ration is not making any urine, she is completely dialysis dependent. Fecal management system remains in place. Venkatesh gregorio is not requiring any pressors. Chest x-ray continues to show diffuse bilateral interstitial infiltrates consistent with pneumonia or possibly underlying pulmonary edema/fluid overload from her renal failure. She had a T- max of 101, presently her hemoglobin is 7.4, platelets are 160, d-dimer is 4.05. 31 creatinine 3.8. LDH is 1016 C-reactive protein is 13.6. Overall prognostic picture does not look very promising. Urine cultures and blood cultures and urine cultures have been relatively nondiagnostic Objective - Vital Signs Vital signs: Vital Signs Temp 99 F 10/03/20 12:00 Pulse 93 10/03/20 15:00 Resp 33 H 10/03/20 15:00 BP 98/49 10/03/20 15:00 Pulse Ox 92 L 10/03/20 15:00 Intake & Output 10/02/20 10/03/20 10/03/20 18:59 06:59 18:59 Intake Total 0268.326 8007.574 940.693 Output Total 3500 1100 Balance -0743.889 4360.574 -159.307 Weight 123.7 kg Intake: IV 279 286 210 0.9 Normal Saline @ KVO 240 220 180 0.9 Normal Saline 39 66 30 Pressure Bag Intake, IV Titration 801.167 566.574 400.693 Amount Norepinephrine 8 mg In 169.854 55.264 Sodium Chloride 0.9% 250 ml @ 0.05 MCG/KG/MIN 11. 61 mls/hr IV .[id number] [facility] Rx#:[id number] fentaNYL (PF) 2,500 mcg 501.167 145.429 In Sodium Chloride 0.9% 200 ml @ Per Protocol IV .Q0M [facility] Rx#:[id number] propofoL 1,000 mg In 300 396.72 200 Empty Bag 1 bag @ Per Protocol IV .Q0M [facility] Rx#: [id number] Tube Feeding 420 360 270 Other 90 90 60 Output: Urine 0 Stool 1100 Hemodialysis 3500 Other: Voiding Method Indwelling Catheter # Voids 0 0 ABP, PAP, CO, CI - Last Documented Arterial Blood Pressure 86/40 - Exam GENERAL EXAM: Revealed a 35-year-old female, obese, on mechanical ventilation, sedated, but not paralyzed. Pain is on propofol and on fentanyl. HEAD: Normocephalic/atraumatic. Tracheostomy is intact. EENT: PERRLA, EOMI, nonicteric, no neck masses, no JVD, CHEST: No chest wall deformity. Symmetrical expansion. LUNGS: Crackles bilaterally persist. No rhonchi and no wheezes. CVS: Distant S1 and S2, no S3 gallop, no murmur. ABDOMEN: Obese soft nontender no megaly no rebound no guarding. PEG tube is intact. EXTREMITIES: No clubbing, 2+ bipedal edema, no cyanosis, 2+ pulses and upper and lower extremities. Psychiatric: Could not assess. sedated, arousable, and gets extremely agitated. SKIN: No rashes CENTRAL NERVOUS SYSTEM: Sedated, could not fully assess. - Labs CBC & Chem 7: 10/03/20 03:50 10/03/20 03:50 Labs: Abnormal Lab Results - Last 24 Hours (Table) 10/02/20 10/02/20 10/03/20 Range/Units 17:46 23:54 03:50 RBC 2.59 L (3.80-5.40) m/uL Hgb 7.4 L (11.4-16.0) gm/dL Hct 22.0 L (34.0-46.0) % RDW 16.0 H (11.5-15.5) % Lymphocytes # 0.6 L (1.0-4.8) k/uL D-Dimer (<0.60) mg/L FEU ABG pO2 (83-108) mmHg ABG Total CO2 (19-24) mmol/L ABG O2 Saturation (94-97) % Sodium (137-145) mmol/L BUN (7-17) mg/dL Creatinine (0.52-1.04) mg/dL Glucose (74-99) mg/dL POC Glucose (mg/dL) 138 H 154 H (75-99) mg/dL Ferritin (10.0-291.0) ng/mL Lactate Dehydrogenase (313-618) U/L C-Reactive Protein (<1.0) mg/dL Total Protein (6.3-8.2) g/dL Albumin (3.5-5.0) g/dL 10/03/20 10/03/20 10/03/20 Range/Units 03:50 03:50 05:52 RBC (3.80-5.40) m/uL Hgb (11.4-16.0) gm/dL Hct (34.0-46.0) % RDW (11.5-15.5) % Lymphocytes # (1.0-4.8) k/uL D-Dimer 4.05 H (<0.60) mg/L FEU ABG pO2 67 L (83-108) mmHg ABG Total CO2 25 H (19-24) mmol/L ABG O2 Saturation 92.8 L (94-97) % Sodium 133 L (137-145) mmol/L BUN 31 H (7-17) mg/dL Creatinine 3.80 H (0.52-1.04) mg/dL Glucose 100 H (74-99) mg/dL POC Glucose (mg/dL) (75-99) mg/dL Ferritin 1514.8 H (10.0-291.0) ng/mL Lactate Dehydrogenase 1016 H (313-618) U/L C-Reactive Protein 13.6 H (<1.0) mg/dL Total Protein 5.1 L (6.3-8.2) g/dL Albumin 2.4 L (3.5-5.0) g/dL 10/03/20 Range/Units 12:11 RBC (3.80-5.40) m/uL Hgb (11.4-16.0) gm/dL Hct (34.0-46.0) % RDW (11.5-15.5) % Lymphocytes # (1.0-4.8) k/uL D-Dimer (<0.60) mg/L FEU ABG pO2 (83-108) mmHg ABG Total CO2 (19-24) mmol/L ABG O2 Saturation (94-97) % Sodium (137-145) mmol/L BUN (7-17) mg/dL Creatinine (0.52-1.04) mg/dL Glucose (74-99) mg/dL POC Glucose (mg/dL) 170 H (75-99) mg/dL Ferritin (10.0-291.0) ng/mL Lactate Dehydrogenase (313-618) U/L C-Reactive Protein (<1.0) mg/dL Total Protein (6.3-8.2) g/dL Albumin (3.5-5.0) g/dL Microbiology - Last 24 Hours (Table) 10/02/20 23:10 Gram Stain - Preliminary Sputum Sputum Culture - Preliminary 09/28/20 09:45 Blood Culture - Preliminary Blood No Growth after 120 hours 09/28/20 09:45 Blood Culture - Preliminary Blood No Growth after 120 hours Assessment and Plan Assessment: Impression: Acute hypoxic respiratory failure secondary to COVID-19 pneumonia and ARDS secondary to COVID-19 pneumonia, patient was transferred to the ICU on 09/11, int ubated on 09/11, received REM on 09/11, received T OCI on 09/11, tracheostomy and PEG tube placement on 09/18 remains on mechanical ventilation with volume control plus mode as noted earlier Acute kidney injury with complete shutdown of urine output/anuria, requiring hemodialysis. Remains on hemodialysis 3 times per week Acute diabetic ketoacidosis and COVID-19 pneumonia on her initial presentation. Sepsis secondary to COVID-19 pneumonia Type 2 diabetes poorly controlled. Hemoglobin A1c of 13.6. Elevated inflammatory markers secondary to acute COVID-19 pneumonia History of hypertension. Generalized anxiety disorder. Morbid obesity BMI of 54.2. Status post tracheostomy and PEG tube placement on 09/18. Recommendation: Continue ventilatory support, increase PEEP to 12, decrease FiO2 to 55% and titrate accordingly maintaining O2 saturation above 90%. Continue nutritional support Continue Lovenox. Continue Decadron. Continue hemodialysis every other day. Daily assessment of sedation if possible. Continue insulin and close monitoring of her sugars. Continue COVID-19 cocktail. Continue Lovenox 30 mg subcu daily Continue Decadron 4 mg IV push every 24 hours. Continue insulin and maintain adequate control of her sugars. Overall prognosis is extremely poor Critical care time is over 30 minutes Time with Patient: Greater than 30
[2020-10-03 17:54] LABS: Glucose,Whole Blood 147 mg/dL (75-99)
[2020-10-03] MEDS: fentaNYL (PF) 2,500 MCG in SODIUM CHLORIDE 0.9% 200 ML IV SCH (23:30)
[2020-10-03 23:52] LABS: Glucose,Whole Blood 110 mg/dL (75-99)
[2020-10-04] MEDS: ARTIFICIAL TEARS OINTMENT 3.5 GM TUBE BOTH EYES SCH ×2 (00:37→04:14)
[2020-10-04] MEDS: INSULIN ASPART (NovoLOG) 100 UNIT/ML VIAL SQ SCH ×7 (00:37→18:33)
[2020-10-04] MEDS: ACETAMINOPHEN TAB 325 MG TAB PO PRN (02:36)
[2020-10-04] MEDS: NOREPINEPHRINE 8 MG in SODIUM CHLORIDE 0.9% 250 ML IV SCH (04:13)
[2020-10-04 04:21] LABS: ABG Base Excess -3.1 mmol/L; ABG HCO3 22 mmol/L (21-25); ABG PCO2 38 mmHg (35-45); ABG PH 7.38 (7.35-7.45); ABG TCO2 23 mmol/L (19-24); Allen Test Performed? Yes
[2020-10-04 04:26] LABS: ABG PO2 55 mmHg (83-108)
[2020-10-04 05:02] LABS: Anisocytosis Slight; Basophils % (A) 0 %; Eosinophils # (A) 0.6 k/uL (0-0.7); Eosinophils % (A) 13 %; HCT 21.7 % (34.0-46.0); Hypochromasia Slight; Lymphocytes # (A) 0.5 k/uL (1.0-4.8); Lymphocytes % (A) 11 %; MCH 27.2 pg (25.0-35.0); MCHC 31.6 g/dL (31.0-37.0); Mean Platelet Volume 9.8; Monocytes # (A) 0.2 k/uL (0-1.0); Monocytes % (A) 3 %; Neutrophils # (A) 3.1 k/uL (1.3-7.7); Neutrophils % (A) 69 %; Platelet Count 151 k/uL (150-450); Poikilocytosis Slight; RBC 2.52 m/uL (3.80-5.40); RDW 16.4 % (11.5-15.5); WBC 4.5 k/uL (3.8-10.6)
[2020-10-04 05:06] LABS: HGB 6.8 gm/dL (11.4-16.0)
[2020-10-04 05:12] LABS: Albumin 2.4 g/dL (3.5-5.0); Calcium 9.2 mg/dL (8.4-10.2); Potassium 4.1 mmol/L (3.5-5.1); Total Bilirubin 0.2 mg/dL (0.2-1.3)
[2020-10-04 05:22] LABS: C Reactive Protein 14.4 mg/dL (<1.0)
[2020-10-04] MEDS: INSULIN DETEMIR (LEVEMIR) 100 UNIT/ML SYR SQ SCH ×2 (06:43→21:17)
[2020-10-04] MEDS: SEVELAMER 800 MG TAB PO SCH ×3 (06:43→17:01)
[2020-10-04] MEDS: ALBUTEROL HFA INHALER INHALATION SCH ×4 (07:35→21:24)
[2020-10-04] MEDS: SYMBICORT 160-4.5 MCG INHALER INHALATION SCH ×2 (07:35→21:25)
--- NOTE | 2020-10-04 07:53 | XR ---
EXAMINATION TYPE: XR chest 1V portable DATE OF EXAM: 10/04/2020 COMPARISON: Chest x-ray 10/03/2020 HISTORY: Mechanical ventilation, abnormal chest x-ray TECHNIQUE: Single frontal view of the chest is obtained. FINDINGS: Right jugular central venous catheter, right-sided PICC line are overlying appropriate pos itions. Diffuse bilateral airspace disease persists, tracheostomy tube is overlying appropriate posit ion. No evident pneumothorax or pleural effusion. Cardiac mediastinal silhouette is stable. IMPRESSION: Correlate for pneumonia, edema, ARDS
[2020-10-04] MEDS: ENOXAPARIN 30 MG/0.3 ML SYRINGE SQ SCH (08:33)
[2020-10-04] MEDS: PANTOPRAZOLE 40 MG/10 ML VIAL IVP SCH (08:33)
[2020-10-04] MEDS: CHOLECALCIFEROL 25 MCG (1000 IU) TABLET PO SCH (08:33)
[2020-10-04] MEDS: ASCORBIC ACID 500 MG TAB PO SCH ×2 (08:33→21:16)
[2020-10-04] MEDS: SODIUM BICARBONATE TAB 650 MG TAB PO SCH ×3 (08:33→21:16)
[2020-10-04] MEDS: ZINC SULFATE 220 MG CAP PO SCH (08:33)
[2020-10-04] MEDS: DEXAMETHASONE SOD PHOSPHATE 4 MG/ML 1 ML VIAL IV SCH (08:33)
[2020-10-04] MEDS ORDERED: HEPARIN SODIUM 1,000 UN/ML (10ML VL) ONE (09:00)
[2020-10-04 11:17] LABS: Ferritin 1801.6 ng/mL (10.0-291.0)
[2020-10-04 11:37] LABS: Glucose,Whole Blood 99 mg/dL (75-99)
[2020-10-04] MEDS: DARBEPOETIN ALFA 40 MCG/0.4 ML SYRINGE SQ SCH (11:43)
--- NOTE | 2020-10-04 13:07 | P.PN ---
Subjective Progress Note Date: 10/04/20 CHIEF COMPLAINT: COVID-19 pneumonia HISTORY OF PRESENT ILLNESS: Patient is in the ICU for COVID-19 pneumonia and respiratory failure. She is status post tracheostomy and PEG tube placement with Dr. hollis. Patient is tolerating tube feedings. Her to feedings are at goal at 30 mL per hour. She is having stools and has fecal management system in place. Patient remains on mechanical ventilation. Her PEEP is at 15. Patient is currently getting hemodialysis. She is been having fevers and had a temp of 101 at 3 AM. Her hemoglobin is at 6.8 and she is receiving a unit of blood today. WBC 4.5 platelets 151 Patient seen and examined with Dr. hollis PHYSICAL EXAM: VITAL SIGNS: Reviewed. GENERAL: Well-developed in no acute distress. HEENT: No sclera icterus. Extraocular movements grossly intact. Moist buccal mucosa. Head is atraumatic, normocephalic. Tracheostomy site clean dry and intact. No evidence of bleeding ABDOMEN: Soft. Nondistended. Nontender. PEG tube site clean dry and intact NEUROLOGIC: Awake and following commands ASSESSMENT: 1. Acute hypoxic respiratory failure with prolonged mechanical ventilation due to COVID-19 pneumonia status post tracheostomy placement 2. Severe protein calorie malnutrition status post PEG tube placement PLAN: -Continue tube feedings -Continue supportive care -Continue ICU management Physician Marketing Production Specialist note has been reviewed by physician. Signing provider agrees with the documented findings, assessment, and plan of care. Objective - Vital Signs Vital signs: Vital Signs Temp 100.5 F H 10/04/20 12:57 Pulse 131 H 10/04/20 12:57 Resp 29 H 10/04/20 12:57 BP 129/55 10/04/20 12:57 Pulse Ox 78 L 10/04/20 11:00 Intake & Output 10/03/20 10/04/20 10/04/20 18:59 06:59 18:59 Intake Total 4708.000 4874.621 570.641 Output Total 1100 4000 Balance 442.028 5594.621 -3429.359 Weight 123.7 kg Intake: IV 279 276 115 0.9 Normal Saline @ KVO 240 240 100 0.9 Normal Saline 39 36 15 Pressure Bag Intake, IV Titration 500.693 438.621 215.641 Amount Norepinephrine 8 mg In 55.264 Sodium Chloride 0.9% 250 ml @ 0.05 MCG/KG/MIN 11. 61 mls/hr IV .[id number] [facility] Rx#:[id number] fentaNYL (PF) 2,500 mcg 145.429 138.721 115.041 In Sodium Chloride 0.9% 200 ml @ Per Protocol IV .Q0M [facility] Rx#:[id number] propofoL 1,000 mg In 300 299.9 100.6 Empty Bag 1 bag @ Per Protocol IV .Q0M [facility] Rx#: [id number] Tube Feeding 360 360 150 Blood Product 0 Rc As-1 Unit 0 [id number] Other 90 90 90 Output: Urine 0 Stool 1100 Hemodialysis 4000 Other: Voiding Method Indwelling Catheter # Voids 0 0 0 ABP, PAP, CO, CI - Last Documented Arterial Blood Pressure 170/64 - Labs CBC & Chem 7: 10/04/20 04:10 10/04/20 04:10 Labs: Abnormal Lab Results - Last 24 Hours (Table) 10/03/20 10/03/20 10/04/20 Range/Units 17:53 23:51 04:10 RBC 2.52 L (3.80-5.40) m/uL Hgb 6.8 L* (11.4-16.0) gm/dL Hct 21.7 L (34.0-46.0) % RDW 16.4 H (11.5-15.5) % Lymphocytes # 0.5 L (1.0-4.8) k/uL D-Dimer (<0.60) mg/L FEU ABG pO2 (83-108) mmHg ABG O2 Saturation (94-97) % Sodium (137-145) mmol/L BUN (7-17) mg/dL Creatinine (0.52-1.04) mg/dL POC Glucose (mg/dL) 147 H 110 H (75-99) mg/dL Ferritin (10.0-291.0) ng/mL Lactate Dehydrogenase (313-618) U/L C-Reactive Protein (<1.0) mg/dL Total Protein (6.3-8.2) g/dL Albumin (3.5-5.0) g/dL Crossmatch 10/04/20 10/04/20 10/04/20 Range/Units 04:10 04:10 04:17 RBC (3.80-5.40) m/uL Hgb (11.4-16.0) gm/dL Hct (34.0-46.0) % RDW (11.5-15.5) % Lymphocytes # (1.0-4.8) k/uL D-Dimer 3.28 H (<0.60) mg/L FEU ABG pO2 55 L* (83-108) mmHg ABG O2 Saturation 86.0 L (94-97) % Sodium 132 L (137-145) mmol/L BUN 37 H (7-17) mg/dL Creatinine 4.74 H (0.52-1.04) mg/dL POC Glucose (mg/dL) (75-99) mg/dL Ferritin 1801.6 H (10.0-291.0) ng/mL Lactate Dehydrogenase 859 H (313-618) U/L C-Reactive Protein 14.4 H (<1.0) mg/dL Total Protein 5.0 L (6.3-8.2) g/dL Albumin 2.4 L (3.5-5.0) g/dL Crossmatch 10/04/20 Range/Units 09:20 RBC (3.80-5.40) m/uL Hgb (11.4-16.0) gm/dL Hct (34.0-46.0) % RDW (11.5-15.5) % Lymphocytes # (1.0-4.8) k/uL D-Dimer (<0.60) mg/L FEU ABG pO2 (83-108) mmHg ABG O2 Saturation (94-97) % Sodium (137-145) mmol/L BUN (7-17) mg/dL Creatinine (0.52-1.04) mg/dL POC Glucose (mg/dL) (75-99) mg/dL Ferritin (10.0-291.0) ng/mL Lactate Dehydrogenase (313-618) U/L C-Reactive Protein (<1.0) mg/dL Total Protein (6.3-8.2) g/dL Albumin (3.5-5.0) g/dL Crossmatch See Detail Microbiology - Last 24 Hours (Table) 09/28/20 09:45 Blood Culture - Final Blood No Growth after 144 hours 09/28/20 09:45 Blood Culture - Final Blood No Growth after 144 hours 10/02/20 23:10 Gram Stain - Preliminary Sputum Sputum Culture - Preliminary 10/02/20 22:55 Blood Culture - Preliminary Blood No Growth after 24 hours
[2020-10-04] MEDS: fentaNYL (PF) 2,500 MCG in SODIUM CHLORIDE 0.9% 200 ML IV SCH (13:18)
--- NOTE | 2020-10-04 13:48 | P.PN ---
Subjective Progress Note Date: 10/04/20 Principal diagnosis: Acute hypoxic respiratory failure secondary to COVID-19 pneumonia and ARDS secondary to COVID-19 pneumonia This is a 55-year-old -[place] female with history of type 2 diabetes, admitted today through the emergency room with a few days' history of increased shortness of breath, cough, fever, chest x-ray in the ER showed bilateral infiltrates consistent with COVID-19 pneumonia in the patient had positive PCR for COVID-19 infection. Patient had significantly abnormal labs on admission, she had an extremely low bicarb, extremely low pH, and marginal oxygenation at best. Patient was admitted to the regular medical floor, and I happened to be rounding on that same floor were and I was notified about this patient having worsening respiratory distress. Evaluated the patient, clearly the patient has DKA and she clearly has acute hypoxic respiratory failure secondary to COVID-19 pneumonia. As soon as I laid eyes on the patient, recommended immediate transfer to the ICU. Patient was placed on BiPAP however she did not tolerate BiPAP well, and when I went back to evaluate the patient in the ICU, she was basically deteriorating, and she was using her accessory muscles, patient was in severe respiratory distress. Hence I recommended immediate intubation and placement on mechanical ventilation. Chest x-ray continued to show bilateral in filtrates consistent with worsening COVID-19 pneumonia ABG showed a pO2 of 59 pCO2 of 42 pH of 7.05 and this was on the 100% FiO2 20 of PEEP tidal volume of 375 rate of 36. Patient will be given more bicarb and she is already on a bicarb drip. She is receiving insulin and she is also receiving IV fluids in the form of 0.9 normal saline. Sugars were 384. Inflammatory markers were added to be extremely high, LDH 8, and C-reactive protein of 8.7. D-dimer was borderline elevated at 1.84. On 09/12/2020 patient seen in follow-up in the intensive care unit, yesterday she was emergently transferred to the intensive care and intubated and placed on mechanical ventilator. She remains intubated, sedated on mechanical ventilator, currently on assist control mode of ventilation with a rate 36, tidal vital 375, FiO2 100% and PEEP of 20. This might blood gas reveals pO2 of 62, pCO2 40, pH of 7.35 this was done on FiO2 of 80%, her peak airway pressure is 35, in her plateau pressure is around 32. she is sedated on Diprivan and 60 mics per kilo per minute, 0.9 normal saline at 100 ML per hour, insulin drip is at 4 units per hour, and she has 5% dextrose with 3 units of bicarbonate at 100 ML per hour. Today's labs have been reviewed, showing white blood cell count 10.3, hemoglobin of 14.4, d-dimer has increased to 14.31, and her Lovenox was adjusted and increased to 50 mg twice daily, sodium is 137, potassium is 3.7, chloride is 112, CO2 is up to 21, BUN of 16 creatinine is 1.57, LDH is 2618, CRP is 18.2. Pro-Calcitonin level came back elevated at 3.53, suggesting possibility of bacterial infection She received a liter bolus yesterday after intubation. We will give the patient additional fluid boluses today. Sputum culture has been sent and is pending, blood cultures have been sent. Patient has been placed in prone position at 8:00 last night, and her oxygenation seems to be improved and she satting 97% on 100% FiO2 and subsequently FiO2 was dropped down to 80%, and PEEP is down to 18. She remains in prone positioning, tolerating it well, she is having low-grade fevers, she is in sinus mechanism with tachycardic on the monitor, not requiring any vasopressor support right now, will start tube feedings today when the patient is placed back over in the supine position On 09/13/2020 patient seen in follow-up in intensive care unit, she remains proned, and at the time of our evaluation patient has already been prone for close to 16 hours and is about to be turned back on her spine. She tolerates prone position quite well, she remains intubated, paralyzed and sedated on mechanical ventilator, current vent settings are assist-control mode of ventilation with a rate of 36, tidal volume 375, FiO2 of 70% and PEEP of 18, this point his blood gases show pO2 of 82, pCO2 of 39, and pH of 7.19. She's currently on D5 W with 3 A of bicarbonate at 75 per hour, Diprivan is a 60 mics per kilo per minute, index is at 2 mics per kilo per minute, and insulin drip is at 6 units per hour, patient has not started tube feedings yet. She is in sinus mechanism, hemodynamically stable, not requiring any vasopressor support. Today's chest x-ray has been reviewed showing bilateral lung infiltrates that appear to be stable. Today's labs have been reviewed showing white blood cell count of 11.1, hemoglobin 13.2, d-dimer is pending, yesterday his d-dimer was 14.3, patient's Lovenox dose was increased to 50 mg every 24 hours. Her renal function continued to worsen, and her creatinine is up to 3.4 on today's labs, BUN is 24, were bicarb concentration is only 13 on today's labs, sodium is 137, potassium is 4.0. AST is up to 77, ALT and alk phos are within normal limits, yesterday set him inflammatory markers with showing up trending LDH at 2618, and CRP of 18.2. Her pro-calcitonin level was increased yesterday at 3.53 and we added empiric antibiotics in the form of Zosyn. Sputum culture has been sent and has shown no growth. Overnight patient remained oliguric, yesterday we gave her additional fluids, however did not improve her renal function and her kidney function continued to get worse. Nephrology consultation has been requested, she has only been producing urine in the order of 5-10 ML per hour, renal ultrasound has been obtained showing no evidence of hydronephrosis bilaterally. On 09/14/2020 patient seen in follow-up in intensive care unit, she remains intubated, sedated and paralyzed, currently on assist control mode of ventilation with a rate of 36, tidal vital 375, FiO2 of 60% and PEEP of 18. This morning's blood gas was reviewed showing pO2 of 60, pCO2 of 43, and pH of 7.32. This was done on FiO2 of 70%, her peak airway pressure is 40, plateau pressures 26. She is currently on D5 with 3 A of bicarbonate at 100 ML per hour , insulin drip is at 7 units per hour, fentanyl drip is a 0.5 mics per kilo per hour, Diprivan and is at 50 mics per kilo per minute, and index is at 2 mics per kilo per minute. She is tolerating tube feedings of vital high-protein at 27 with a goal 27 standard water flushes. Today's chest x-ray has not been completed yet, because the patient has been in prone position for last 16 hours. Patient tolerates prone in quite well, and her oxygenation improves when she is in prone position. However when she is turned over in the supine position to complete chest x-rays and ADL's, patient's O2 sat drops down to low 80s and her FiO2 requirement increases at that time. Today's labs have been reviewed, and there has been further worsening of her renal function, and patient has made almost no urine overnight. Her BUN is 33, and creatinine is 4.87, nephrology is following, her renal ultrasound showed no evidence of hydronephrosis. Her urinalysis showed possibility of urinary tract infection, and patient has been started on cefepime. Urine culture is pending at this time, blood and sputum cultures have been negative. No fevers overnight, she's not requiring any vasopressor support. On 09/15/2020 patient seen in follow-up in intensive care unit, she remains intubated, sedated and paralyzed on assist-control mode of ventilation with a rate of 36, tidal vital 375, FiO2 100% and PEEP of 18, this morning's blood gas reviewed showing pO2 of 58, pCO2 of 45, and pH is 7.35, this was done on FiO2 of 100%. Her peak airway pressures 44, plateau pressures 38, she is on 0.9 normal saline at 50 ML per hour, Diprivan is a 40 mics per kilo per minute, Nimbex drip is a 2 mics per kilo per minute, and fentanyl drip at 0.5 mics per kilo per hour, she is tolerating tube feedings with vital high-protein is 27 with a goal of 27 standard water flushes. She is in sinus mechanism with a rate of 73, she is hemodynamically stable and not requiring any vasopressors. Today's chest x- ray shows ARDS, bilateral airspace opacities, no significant pleural effusion and no pneumothorax. Today's labs have been reviewed, white blood cell count is 9.9, hemoglobin is 11.3, sodium is 134, respiratory electrolytes were within normal limits, and there has been further worsening of her renal function with BUN of 34, creatinine is 4.78, her urine output has remained very poor. Last night she had her first hemodialysis session and no fluid was removed, this morning she is having another hemodialysis treatments and the goal is to remove half a liter of fluid. Her sputum, blood and urine cultures remained negative thus far, patient's pro-calcitonin level came back significantly elevated at 23.5 suggesting evidence of bacterial infection. Patient remains on cefepime for antibiotic coverage, she also remains on Decadron milligrams twice daily, and Lovenox is 50 mg every 24 hours. The patient is seen today 09/16/2020 in follow-up in the intensive care unit. She remains intubated on the mechanical ventilator. Current settings assist- control at a rate of 36, tidal volume 3 or 75, FiO2 100% and a PEEP of 18. Morning blood gases reveal a pO2 of 61, pCO2 49, pH 7.32. Peak pressures of 48, plateau pressure 43. Chest x-ray continues to show evidence of ARDS, pulmonary edema, diffuse pneumonia. She was not proned last night. The plan is to receive hemodialysis again today. Ultrasound of the chest did not reveal any significant fluid for thoracentesis. Sedated on propofol at 50 mcg/kg/m, fentanyl at 0.5 mcg/kg per hour, Nimbex at 3 mcg/kg/m. Insulin drip at 4 units per hour. She is being nourished with vital HPI at 36 ML's per hour. 0.9 normal saline at 60 ML's per hour. Blood, sputum and urine cultures reveal no growth. White count 11.2. Hemoglobin 11.0. Sodium 134. Potassium 3.4. Creatinine 4.44. Glucose 164. She remains in sinus rhythm. She is continued on Symbicort, albuterol. Antibiotics in the form of cefepime. Remains on Decadron, Lovenox, vitamin supplements. Reevaluated today on 09/17/2020, remains in the ICU, intubated and mechanically ventilated. Patient is on assist control rate of 36 tidal volume 350 FiO2 80% and will cut it down to 70% PEEP is at 20. ABG showed a pO2 of 102 pCO2 of 40 pH of 7.37 and this was on a 90% FiO2 now her FiO2 is down to 70%. Patient remains on hemodialysis, and she is receiving hemodialysis daily. She is on Nimbex at 30 mcg/kg/m, he is also on fentanyl at 0.5 mg/kg/h insulin at 6 units per hour propofol at 50 mcg/kg/m patient has been in prone position almost at least 16 hours per day. Remains on enteral feeding and would've may consider TPN in addition to her enteral feeding if not meeting her total caloric requirements. Patient remains on cefepime. Decadron and Lovenox. Chest x-ray continues to show significant bilateral interstitial infiltrates. WBC count is 10.3 hemoglobin is 10.4, basic metabolic profile showed low potassium of 3.1 being addressed by nephrology BUN is 33 creatinine 4.29. LDH is coming down a bit 1912 C-reactive protein is coming down to 1.3. Patient was reevaluated today on 10/03/2020, remains in the ICU, intubated and mechanically ventilated. She is on assist control rate of 28 tidal volume 400 FiO2 60% PEEP is at 10 I went ahead and increased the PEEP to 12, FiO2 cut down to 55% ABG showed a pO2 of 67 pCO2 of 38 pH of 7.41. Patient remains on propofol at 45 mcg/kg/m, fentanyl at 0.7 mcg/kg/h, she is on enteral feeding using vital AF. She is up to goal. Patient remains on hemodialysis 3 days a week, she had hemodialysis yesterday and 3.5 L were taken off. Patient has multiple lines including dialysis catheter, PICC line, and arterial line. Patient is arousable, however she gets extremely agitated, and starts gagging and desaturating. Hence not ready for any weaning, and I kept her on the ventilator settings as noted earlier. Ration is not making any urine, she is completely dialysis dependent. Fecal management system remains in place. Venkatesh gregorio is not requiring any pressors. Chest x-ray continues to show diffuse bilateral interstitial infiltrates consistent with pneumonia or possibly underlying pulmonary edema/fluid overload from her renal failure. She had a T- max of 101, presently her hemoglobin is 7.4, platelets are 160, d-dimer is 4.05. 31 creatinine 3.8. LDH is 1016 C-reactive protein is 13.6. Overall prognostic picture does not look very promising. Urine cultures and blood cultures and urine cultures have been relatively nondiagnostic Patient was reevaluated today on 10/04/2020, remains in the ICU, intubated and mechanically ventilated. Patient is undergoing hemodialysis during my evaluation. Last night I had to increase her FiO2 and she is now on 65% FiO2, tidal volume is 400 assist control rate 28, and PEEP is 14. Chest x-ray continues to show bilateral interstitial infiltrates/edema. Hoping that, but will clear after hemodialysis, and hopefully we can cut down her FiO2 back again to 50% if possible. ABG on 60% was marginal with a pO2 of 55 pCO2 of 38 pH of 7.38. Patient remains on propofol at 50 fentanyl 20.5 mcg/kg/m, IV fluid to KVO. Goal today is to remove 4 L of fluid by hemodialysis/ultrafiltration. In spite of being on relatively good dose of propofol and fentanyl, patient is awake, follows simple instructions. Patient has a low-grade temp of 100.3. She had a T-max of 101 yesterday. Hemoglobin is low today, and she will receive 1 units of packed RBCs for hemoglobin of 6.8. Basic metabolic profile is relatively normal. PH is 859 and C-reactive protein is 14.4. Patient remains on the COVID-19 cocktail. Remains on Symbicort, Decadron 4 mg IV push daily, Lovenox 30 mg subcu daily, she is also on insulin as per protocol, and she is on Protonix, sodium bicarb 650 mg by mouth 3 times a day, today, the patient is not requiring any pressors. Objective - Vital Signs Vital signs: Vital Signs Temp 100.5 F H 10/04/20 12:57 Pulse 131 H 10/04/20 12:57 Resp 29 H 10/04/20 12:57 BP 129/55 10/04/20 12:57 Pulse Ox 78 L 10/04/20 11:00 Intake & Output 10/03/20 10/04/20 10/04/20 18:59 06:59 18:59 Intake Total 3860.358 3231.621 764.053 Output Total 1100 4000 Balance 151.129 8200.621 -3235.947 Weight 123.7 kg Intake: IV 279 276 115 0.9 Normal Saline @ KVO 240 240 100 0.9 Normal Saline 39 36 15 Pressure Bag Intake, IV Titration 500.693 438.621 409.053 Amount Norepinephrine 8 mg In 55.264 Sodium Chloride 0.9% 250 ml @ 0.05 MCG/KG/MIN 11. 61 mls/hr IV .[id number] [facility] Rx#:[id number] fentaNYL (PF) 2,500 mcg 145.429 138.721 209.053 In Sodium Chloride 0.9% 200 ml @ Per Protocol IV .Q0M [facility] Rx#:[id number] propofoL 1,000 mg In 300 299.9 200.0 Empty Bag 1 bag @ Per Protocol IV .Q0M [facility] Rx#: [id number] Tube Feeding 360 360 150 Blood Product 0 Rc As-1 Unit 0 [id number] Other 90 90 90 Output: Urine 0 Stool 1100 Hemodialysis 4000 Other: Voiding Method Indwelling Catheter # Voids 0 0 0 ABP, PAP, CO, CI - Last Documented Arterial Blood Pressure 170/64 - Exam GENERAL EXAM: Revealed a 35-year-old female, obese, on mechanical ventilation, slightly agitated in spite of sedation, on propofol and fentanyl, follows instructions, patient is on hemodialysis HEAD: Normocephalic/atraumatic. Tracheostomy is intact. EENT: PERRLA, EOMI, nonicteric, no neck masses, no JVD, CHEST: No chest wall deformity. Symmetrical expansion. LUNGS: Crackles bilaterally persist. No rhonchi and no wheezes. CVS: Distant S1 and S2, no S3 gallop, no murmur. ABDOMEN: Obese soft nontender no megaly no rebound no guarding. PEG tube is intact. EXTREMITIES: No clubbing, 2+ bipedal edema, no cyanosis, 2+ pulses and upper and lower extremities. Psychiatric: Follows simple instructions. Slightly agitated. SKIN: No rashes CENTRAL NERVOUS SYSTEM: Mild agitation noted, follows instructions, and comprehending instructions well - Labs CBC & Chem 7: 10/04/20 04:10 10/04/20 04:10 Labs: Abnormal Lab Results - Last 24 Hours (Table) 10/03/20 10/03/20 10/04/20 Range/Units 17:53 23:51 04:10 RBC 2.52 L (3.80-5.40) m/uL Hgb 6.8 L* (11.4-16.0) gm/dL Hct 21.7 L (34.0-46.0) % RDW 16.4 H (11.5-15.5) % Lymphocytes # 0.5 L (1.0-4.8) k/uL D-Dimer (<0.60) mg/L FEU ABG pO2 (83-108) mmHg ABG O2 Saturation (94-97) % Sodium (137-145) mmol/L BUN (7-17) mg/dL Creatinine (0.52-1.04) mg/dL POC Glucose (mg/dL) 147 H 110 H (75-99) mg/dL Ferritin (10.0-291.0) ng/mL Lactate Dehydrogenase (313-618) U/L C-Reactive Protein (<1.0) mg/dL Total Protein (6.3-8.2) g/dL Albumin (3.5-5.0) g/dL Crossmatch 10/04/20 10/04/20 10/04/20 Range/Units 04:10 04:10 04:17 RBC (3.80-5.40) m/uL Hgb (11.4-16.0) gm/dL Hct (34.0-46.0) % RDW (11.5-15.5) % Lymphocytes # (1.0-4.8) k/uL D-Dimer 3.28 H (<0.60) mg/L FEU ABG pO2 55 L* (83-108) mmHg ABG O2 Saturation 86.0 L (94-97) % Sodium 132 L (137-145) mmol/L BUN 37 H (7-17) mg/dL Creatinine 4.74 H (0.52-1.04) mg/dL POC Glucose (mg/dL) (75-99) mg/dL Ferritin 1801.6 H (10.0-291.0) ng/mL Lactate Dehydrogenase 859 H (313-618) U/L C-Reactive Protein 14.4 H (<1.0) mg/dL Total Protein 5.0 L (6.3-8.2) g/dL Albumin 2.4 L (3.5-5.0) g/dL Crossmatch 10/04/20 Range/Units 09:20 RBC (3.80-5.40) m/uL Hgb (11.4-16.0) gm/dL Hct (34.0-46.0) % RDW (11.5-15.5) % Lymphocytes # (1.0-4.8) k/uL D-Dimer (<0.60) mg/L FEU ABG pO2 (83-108) mmHg ABG O2 Saturation (94-97) % Sodium (137-145) mmol/L BUN (7-17) mg/dL Creatinine (0.52-1.04) mg/dL POC Glucose (mg/dL) (75-99) mg/dL Ferritin (10.0-291.0) ng/mL Lactate Dehydrogenase (313-618) U/L C-Reactive Protein (<1.0) mg/dL Total Protein (6.3-8.2) g/dL Albumin (3.5-5.0) g/dL Crossmatch See Detail Microbiology - Last 24 Hours (Table) 09/28/20 09:45 Blood Culture - Final Blood No Growth after 144 hours 09/28/20 09:45 Blood Culture - Final Blood No Growth after 144 hours 10/02/20 23:10 Gram Stain - Preliminary Sputum Sputum Culture - Preliminary 10/02/20 22:55 Blood Culture - Preliminary Blood No Growth after 24 hours Assessment and Plan Assessment: Impression: Acute hypoxic respiratory failure secondary to COVID-19 pneumonia and ARDS secondary to COVID-19 pneumonia, patient was transferred to the ICU on 09/11, intubated on 09/11, received REM on 09/11, received T OCI on 09/11, tracheostomy and PEG tube placement on 09/18 remains on mechanical ventilation with volume control plus mode as noted earlier Acute kidney injury with complete shutdown of urine output/anuria, requiring hemodialysis. Remains on hemodialysis 3 times per week Acute diabetic ketoacidosis and COVID-19 pneumonia on her initial presentation. Sepsis secondary to COVID-19 pneumonia Type 2 diabetes poorly controlled. Hemoglobin A1c of 13.6. Elevated inflammatory markers secondary to acute COVID-19 pneumonia History of hypertension. Generalized anxiety disorder. Morbid obesity BMI of 54.2. Status post tracheostomy and PEG tube placement on 09/18. Recommendation: Continue ventilatory support, PEEP remains at 14. FiO2 up to 65%. The rate is 28 tidal volume 400, Continue nutritional support Continue Lovenox. Continue Decadron. Continue hemodialysis every other day. Not quite ready for weaning. Continue insulin and close monitoring of her sugars. Continue COVID-19 cocktail. Continue Lovenox 30 mg subcu daily Continue Decadron 4 mg IV push every 24 hours. Continue insulin and maintain adequate control of her sugars. Remains quite ill, slight worsening over the last 24 hours. Critical care time is over 30 minutes Time with Patient: Greater than 30
[2020-10-04] MEDS: SODIUM CHLORIDE 0.9% 500 ML 500 ML IV SCH (14:00)
--- NOTE | 2020-10-04 14:06 | P.PN ---
Subjective Progress Note Date: 10/04/20 HISTORY OF PRESENT ILLNESS 35-year-old female patient of Dr. Arroyo with past medical history of type 2 diabetes comes in with acute shortness of breath associated with high light s ugars. Patient on admission was found to have a fever of 101.5 pulse rate 125 respiratory rate 20. Blood pressure 132/106. On chest x-ray obtained in the ER suggestive of bilateral infiltrates concerning for call with pneumonia. COVID PCR was positive. On admissions patient had an ABG with a pH of 7.14 pCO2 of 20, pO2 of 59, bicarb of 7. Patient's blood sugar on admission was 424 on assessment today patient's blood work patient had a sodium 135 potassium 5.4 chloride 123 bicarb less than 5 and creatinine 0.73. D-dimer was elevated on admission patient 9 28 patient given 1 L of IV fluids followed by normal saline running at 200 mL/h. Patient was positive for acetone on admission. She will anion gap closed and was switched to D5NS. Insulin drip was continued during the night and was switched to patient's home medication this morning. One dose of remdesiver was ordered. Apparently around noon, A- team was called on the patient secondary to hypoxia patient's oxygen saturation dropped to the 70s and 80s on 100% nonrebreather. Patient was switched to BiPAP on 18/12 and is doing better o FiO2 of 80%. ABG was obtained and ph was 7. 14 pCO2 of 28 bicarb of 7 pO2 of 17. Patient noted to have uncompensated metabolic acidosis with compensated respiratory alkalosis. Stat dose of 1 amp bicarb was given and followed by sodium bicarbonate drip. Insulin drip restarted. Patient's initiated on dexamethasone 6 mg IV twice a day. Potassium phosphate ordered as phosphorus is low. Patient's repeat blood gases suggest a pH of 7.25, CO2 32 pO2 of 72 bicarb 14. I will not normal saline at 100 mL/h as patient's anion gap has increased. Patient given 1 dose of 2 mg of morphine with improvement in respiratory rate. One dose of Ativan 0.5 mg was given. Xanax 0.25 twice a day along with Ativan 0.5 IV every 6 hours ordered for the patient. Vitals were evaluated patient pulse 129 [id number]. She was moved to the ICU. Precedex drip was initiated. Lopressor was initiated at 25 twice a day. Metoprolol tartrate 5 mg IV every 6 hours. Systolic blood pressure more than 160. Started chest x-ray was obtained and suggest stable bilateral consolidation suggestive of COVID-19 pneumonia. 09/12 patient is seen in the ICU is currently mechanically ventilated and sedated on vent settings of respiratory rate 36, tidal volume 375 FiO2 80% PEEP of 18.. Vital signs reviewed patient had a temp of 100.4 pulse 150 respiratory rate 36 oxygen saturation 95% on 80% on fio2 .'s labs are reviewed which patient had a d-dimer 1.84 that is increased to 14.3. Arterial Blood gas suggest ph 7.35, CO2 40, po2 62, . Her BMP suggest a sodium 135 potassium 3.7 chloride 112 bicarb 21 creatinine 1.57 for calcitonin is 3.5 CRP is increased from 8.78.2 LDH is increased to 2614. Patient remains on Pneumovax, propofol drip. Lovenox increased to 50 subcu twice a day. Patient received 2 L of IV fluids. Continue IV fluids at 100 mL/h. Bicarb drip discontinued patient initiated on Zosyn 3.375 every 8 hours. Continue insulin drip at 4 units per hour. Patient is currently in prone positioning 09/13: Patient evaluated in the ICU remains on Ventilation continues to be sedated, in prone position. Vent settings are respiratory rate 36, tidal vital 375, FiO2 70% PEEP of 18. ABG shows pO2 of 82, PCO2 of 39, pH is 7.19. Latest labs show WBC 11.1, hemoglobin 13.2, d-dimer still pending, but yesterday was up to 14.3. Creatinine up to 3.4, BUN 24 sodium 137, potassium 4.0. Patient's urine output has been low, nephrology on consult. Bicarb drip increased to 100 miles an hour, receiving another liter of normal saline, she did have a ultrasound that showed unremarkable bilateral kidneys. Repeat chest x-ray showed bilateral lung infiltrates that are stable. Anion gap has closed, will start Lantus 10 units at at bedtime Novolog every 6 hours. 09/14: Patient is seen in the ICU, still currently mechanically ventilated and sedated. She continues in the prone position. Her oxygen quickly drops if she is not in prone. Patient's kidney function has worsened. Laboratory values show creatinine of 4.87, BUN 33, LDH 2191, C-reactive protein 2.7. ABG shows pH 7.32, pO2 of 60, pCO2 43. Patient is making almost no urine overnight. Nephrology is following patient continues on cefepime for urinary tract infection, culture is still pending. Vascular has been consulted for placement of temporary hemodialysis catheter for plans for dialysis. 09/15: Patient evaluated in the ICU, continues to be mechanically ventilated and sedated on assist control ventilation rate of 36, tidal volume 375, FiO2 100% and PEEP of 18. ABG today shows pO2 58, pCO2 of 45, and pH 7.35. She continues on tube feedings. Yesterday patient underwent ultrasound-guided right internal jugular non-tunneled hemodialysis catheter placement. Patient underwent hemodialysis treatment last night and plans have another hemodialysis treatment today. She continues to make almost no urine. She continues on cefepime for antibiotic coverage, and continues on Decadron and Lovenox. 09/16: Patient seen on follow-up remains in the ICU mechanically ventilated and sedated. She continues on assist control rate of 36, tidal volume 375, FiO2 100% and PEEP of 20. PEEP had to be increased due to patient had to be in supine position for dialysis, will go back to prone position once dialysis is complete. ABG shows pH 7.32, pCO2 49, PaO2 61. Laboratory values showed WBC 11.2, hemoglobin 11, sodium 134, creatinine 4.44, BUN 38. Urine culture shows no growth, blood cultures show no growth to date. Repeat chest x-ray shows bilateral pleural effusions, correlate for ARDS, pulmonary edema, diffuse pneumonia, findings are stable from last exam. Patient does not require any pressors, blood pressure 133/57, heart rate 78. 5/16: Patient was evaluated in the ICU today for follow-up. She continues to be intubated and on mechanical ventilation. Current vent settings are tidal volume 375, FiO2 100% and PEEP of 20. ABG shows pH 7.37, pCO2 40, pO2 102. She continues with intermittent prone positioning. Patient continues to have almost no urine output, maintained on dialysis. Patient received dialysis yesterday without complication. Laboratory values revealed WBC 10.3, hemoglobin 10.4, sodium 132, potassium 3.1, BUN 33, creatinine 4.29, LDH 1913, C-reactive protein 1.3. Urine and sputum cultures are negative, blood cultures show no growth to date. Consult placed to dietary to start TPN[ ] 09/18: She remains in the intensive care unit intubated and on mechanical ventilation with tidal volume 375, FiO2 60 and PEEP of 20. Patient is being prone to daily at approximately 16 hours per day. Pulmonary medicine has added in Dr. Zhang to do PEG tube and trach today. Patient is not on vasopressors. Repeat blood work reveals WBC 12.6, hemoglobin 9.8, platelet count 212. Sodium 133, potassium 3.2, chloride 102, CO2 21, BUN 35 and creatinine 4.12. Blood sugar 126. Patient underwent hemodialysis yesterday with removal of 2 L and is scheduled again today with goal of 2-3 L and is scheduled again tomorrow. 09/19: She is scheduled for hemodialysis today and is off fentanyl temporarily. Patient is status post trach and PEG tube yesterday. And she remains on mechanical ventilation. Pulse ox 93-95%. She has been afebrile, heart rate 64, respiratory rate 36, blood pressure 115/50. Fentanyl is off to improve blood pressure for hemodialysis which is scheduled for today. Contacted vascular surgery about permanent hemodialysis catheter. Repeat blood work reveals WBC 14.3, hemoglobin 9.6, platelet count 200. D-dimer 6.48. LDH 1686. C-reactive protein 1.1. BUN 34 creatinine 3.81. Sodium 130, potassium 3.5, chloride 101, CO2 18. Blood sugars running between 101 198. Plan is to wean off Pneumovax today. Patient remains on insulin drip. Repeat chest x-ray reveals bilateral multifocal confluent opacities consistent with COVID-19. Some improved aeratio n periphery of the left lung and worsening opacities throughout the right lung. 09/20: She remains in the intensive care unit on mechanical ventilation. She has been afebrile, heart rate 65, respiratory rate 37, blood pressure 121/70, pulse ox 91-99%. Repeat blood work reveals WBC 14.5, hemoglobin 9.1, platelet count 216. D-dimer 6.13. Sodium 133, potassium 3.1, chloride 102, CO2 18, BUN 35 and creatinine 4.27. Blood sugars running between 128 and 143. LDH 1717. C- reactive protein 1.7. Patient remains on insulin drip which will be transitioned to NovoLog scale every 6 hours. Patient is scheduled for permanent hemodialysis catheter placement today with vascular surgery. Repeat chest x-ray reveals stable diffuse bilateral interstitial and airspace disease. Possible small right effusion. His work is following [facility] Do not anticipate discharge until next week. 09/21: Patient is undergoing hemodialysis. She remains on mechanical ventilation with tidal volume 375, FiO2 down to 45 and PEEP was decreased to 15. Patient is continued on propofol, fentanyl drips. She is on tube feedings at goal. Patient was taken off insulin drip yesterday and on scale only but blood sugars are running in the 200s, Levemir scheduled at bedtime will be added. Other blood work reveals WBC 13.3, hemoglobin 8.7, platelet count 192. Sodium 137, potassium 3.6, chloride 107, CO2 18, BUN 34 and creatinine 4.21. Repeat chest x-ray is stable. 09/22: She remains in the intensive care on mechanical ventilation with tidal volume 375, FiO2 of 50 and PEEP of 10. Pulse ox is running 96%. She is afebrile, heart rate in the 50s, respiratory rate 36, blood pressure 100/64. Repeat blood work reveals WBC 16.5, hemoglobin 8.9, platelet count 213. Sodium 134, potassium 3.7, chloride 103, CO2 21, BUN 34 and creatinine 3.89. Blood sugars running in the 200s to 324. Levemir increased to 16 units at bedtime and continue NovoLog scale every 6 hours. Patient is on tube feedings at goal. She has a Haley catheter in with a scant amount of dark/brown urine. Fecal management system is in place. Repeat chest x-ray reveals diffuse bilateral airspace infiltrates persist unchanged. Patient is scheduled for hemodialysis tomorrow morning on Friday. 09/23: Patient remains on mechanical ventilation with tidal volume 3.75, FiO2 50 and PEEP of 10. 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 She has no urine output. Fecal management system is in place. She is undergoing dialysis at this time with plan for removal of 2-1/2 L. She has been afebrile, heart rate in the 50s, respiratory rate 36, blood pressure 108/76 and pulse ox 89%. WBC 13.6, hemoglobin 9.1, platelet count 194. Sodium 136, potassium 3.0 and was replaced, chloride 106, CO2 21, BUN 49 creatinine 5.31. Blood sugars are running between 182 and this morning 194. Patient was still in the 200s and 300s. Levemir last evening was increased to 16 units. Patient remains on propofol and fentanyl drips. Lovenox was increased to 60 mg twice daily. 09/24: PEEP was increased today to 20, tidal volume is at 375 and FiO2 of 50%. Patient has been afebrile. She has been started on levo fed. Repeat chest x- ray reveals bilateral multifocal confluent opacities consistent with Covid 19 or ARDS redemonstrated. Nephrology will plan dialysis for tomorrow for 3 L. Patient remains on propofol fentanyl and Nimbex. WBC 12.5, hemoglobin 9.8, platelet count 161. D-dimer 13.3. Sodium 132, potassium 3.4, chloride 102, CO2 20, BUN 48 and creatinine 4.67. Blood sugars extremely elevated to 96-409. LDH 2217. 09/25: Patient remains in the intensive care unit on mechanical ventilation with tidal volume 375, FiO2 50 and PEEP of 20. Patient is afebrile, heart rate 61, respiratory rate 36, blood pressure 102/56, pulse ox 97%. Repeat blood work reveals WBC 9.3, hemoglobin 8.5 and platelet count 171. Sodium 130, potassium 3.7, chloride 100, CO2 20, BUN 61 creatinine 5.65. Blood sugars have been elev ated up to 455. Levemir increased to 20 units twice daily, NovoLog 5 units every 6 hours and continue NovoLog scale. Patient is scheduled for hemodialysis today. Repeat chest x-ray reveals bilateral multifocal and confluent opacities. Decadron and Lovenox dosing change by pulmonary. Patient is off norepinephrine. 09/26: Patient remains in the intensive care unit on mechanical ventilation with tidal volume 375, FiO2 50 and PEEP of 15. She has been afebrile, heart rate 91, blood pressure 114/68, pulse ox 99%. 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 Sodium 134, potassium 3.6, chloride 102, CO2 22, BUN 41 creatinine 4.21. Patient has improved blood sugars this morning running 150s and 160s. Diabetic medications were adjusted yesterday. Patient is awake and alert and interacting. Yesterday, patient had PICC line inserted by interventional radiology. Repeat chest x-ray reveals diffuse airspace infiltrates in both lung ann appear to progress slightly in the interval. 09/27: Patient remains in intensive care unit on mechanical ventilation with improvement of settings with tidal volume 375, FiO2 decreased to 40 and PEEP decreased to 10. Patient is on hemodialysis every other day and plan to remove 3 L today. Patient is more awake and alert. She is slow to respond but is able to follow simple commands. Blood sugars are running between 84 and 123. Repeat blood work reveals WBC 7.1, hemoglobin 8.1, platelets 152. Sodium 135, potassium 3.6, chloride 103, CO2 21, BUN 53 and creatinine 5.88. Repeat chest x-ray revealed cardiomegaly and pulmonary edema. Patient is on tube feedings:. Patient is not require vasopressors and is off sedation. Fecal management system remains in place for brown liquid stool. C. difficile was negative. 09/28: Patient remains on mechanical ventilation with tidal volume 375, FiO2 increased to 80 and PEEP increased to 18. Patient had a rough night was very anxious, no pain. Xanax 0.25 mg 3 times daily was added. There is concern for pulmonary embolism for which patient was started on heparin drip, she is unable to undergo CAT scan. Venous Doppler bilateral lower extremities was nondiagnostic due to extensive edema in obese patient but minimal imaging of the popliteal veins does show flow. Repeat echocardiogram has been ordered. Cefepime has also been ordered at 1 g IV piggyback every 24 hours as well as vancomycin, pharmacy dosing. Patient is back on fentanyl drip, propofol drip and norepinephrine. Blood sugars are elevated and insulin Levemir will be i ncreased to 25 mg twice daily. Ferrlecit infusion has been ordered by nephrology for 4 days. Patient is undergoing hemodialysis today.temperature max 100.2, heart rate 134, respiratory rate 34, blood pressure 120/65, pulse ox 94%. 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 Repeat blood work reveals WBC 16.9, hemoglobin 9.7, platelet count 216. D-dimer 8.81. Sodium 134, potassium 3.8, chloride 99, CO2 25, BUN 43 and creatinine 5.36. Blood sugars in the 200s. AST 40. 09/29 Patient had declined more last 48 hours require more sedation, patient is doing hemodialysis, respiratory failure is quite bit worse this time. Patient was inquired the pain is well back on fentanyl drip. Her vent set up with PEEP is limited but higher. No new finding on culture and her chest x-ray continues shows diffuse infiltrate persistent although there is a moderate interval improvement. 09/30 patient's was seen and evaluated. PEEP was reduced to 11 as patient is maintaining good saturation at the current vent settings. 10/01 patient was seen at bedside. She is currently on assist control rate of 28 white tidal volume 350 FiO2 50% and PEEP of 10 which has been reduced by pulmonary as patient name cleaning her oxygen saturation. Arm blood gas was obtained with a pH of 7.35 pCO2 37 pO2 of 63. She remains hemodynamically stable with no need for pressors. Labs were reviewed patient's BUN is 29 crea tinine 3.93 glucose 122 albumin 2.2 sodium 131 chloride 19 hemoglobin is downtrending with a Hb of 7.3 no leukocytosis 7.1. Patient's urine output is minimal at this time. Her rate has increased to 129 and is currently on positive fluid balance even with dialysis. Last dialysis was done yesterday. Continue enteral feeding currently at goal. Antibiotic has been discontinued and continues to remain on DEXA methicillin 4 mg IV daily. 10/02 patient continues to be on trach support with mechanical ventilation. Patient was evaluated by correction officer head and was switched to VC control as patient was noted to be double stacking on and off throughout the night. Respiratory rate continue to 28 tidal volume increased to 400 with a PEEP for Dr. Downey. Patient is maintaining oxygen saturation 91% on the current setting. According to the nurse bedside patient saturation drops significantly or she is moved or her sedation is dropped. Patient is currently on propofol drip, fentanyl drip. She did underwent dialysis today and was able to maintain her low pressure without the need of pressors. Labs reviewed today suggest a WBC of 6.7 hemoglobin of 7.0 and d-dimer 3.9 bicarb 17 BUN 38 creatinine 4.8. LDH is 964. Sodium 1:30 likely secondary to volume overload. Urine sodium and urine osmolality ordered. Patient's glucose this morning is 146. Continue to remain on enteral feeding. Urine output is reduced. Fall catheter will be placed today. Continue to remain on dialysis. 10/03: Patient remains on mechanical ventilation and is back on propofol and fentanyl drips. Patient is currently on VC control with tidal volume 400, FiO2 55 and PEEP of 12. Patient still is not making any urine and is dialysis dependent with next treatment planned for tomorrow with removal of 3-3-1/2 L. PEG tube feedings are at goal. Fecal management system remains in place. At the time of evaluation, patient is off levophed. Repeat chest x-ray reveals stable diffuse bilateral airspace disease correlate for ARDS, pulmonary edema or diffuse pneumonia. Temperature max last evening was 101. Temperature currently 99, heart rate 106, respiratory rate 32, blood pressure 101/50, pulse ox 86%. Repeat blood work reveals WBC 6, hemoglobin 7.4, platelet count 160. D-dimer 4.05. Sodium 133, potassium 3.5, chloride 100, CO2 23, BUN 31 creatinine 3.8. Blood sugars are running between 100 and 170. Ferritin 1514. Liver function test normal. LDH 1016, C-reactive protein 13.6. Prognosis remains guarded. 10/04: Patient remains intubated on mechanical ventilation with tidal volume 400, FiO2 65, PEEP of 14. Patient continues to run fevers and repeat blood culture and urine and urine culture ordered for today. Halye catheter has been removed this patient has no significant urine output at about 20 mL per shift. BladderScan is monitored for greater than 300 and the patient is straight cathed. Hemoglobin is 6.8 and she has been ordered 41 unit of packed RBCs today. She is currently on propofol and fentanyl drips. She is scheduled for hemodialysis today. WBC 4.5, hemoglobin 6.8, platelet count 151. D-dimer 3.28. Sodium 132, potassium 4.1, chloride 100, CO2 22, BUN 37 creatinine 4.74. Blood sugars running between 97 and 110. Ferritin 1801. LDH 859. C-reactive protein 14.4. Chest x-ray reveals correlate for pneumonia, edema, ARDS. Prognosis remains guarded. REVIEW OF SYSTEMS Unable to obtain due to mechanical ventilation. PHYSICAL EXAMINATION Gen: This is is a 35-year-old black female, patient is intubated and on mechanical ventilation, appears to be comfortable. HEENT: Head is atraumatic, normocephalic. NEUROLOGICAL: Patient is sedated. Full physical examination deferred to correction officer head due to Covid 19 and intubation. ASSESSMENT AND PLAN 1. Acute hypoxic respiratory failure secondary to Covid 19 pneumonia and possible bacterial pneumonia. Patient was intubated on September 11. She is status post 1 dose of Remdesivir and 1 dose of Tocilizumab. Continue Ventolin inhaler 4 times daily, Symbicort twice daily, Decadron 4 mg IV daily, Lovenox 30 mg subcu daily, supplements. Status post PEG tube and trach. 2. Acute diabetic ketoacidosis secondary to Covid 19 pneumonia, uncontrolled with hyperglycemia. Levemir 25 units twice daily, scheduled NovoLog 5 units every 6 hours and NovoLog scale. 3. Metabolic encephalopathy secondary to Covid 19 and DKA. 4. Sepsis and septic shock secondary to Covid 19 pneumonia. Continue as in #1. 5. Acute metabolic acidosis secondary to acute DKA, Covid 19 and acute kidney injury. 6. Diabetes mellitus type 2 uncontrolled with A1c 13.6. Continue as above. 7. Hypophosphatemia status post replacement. 8. Hyperkalemia secondary to DKA, resolved. 9. Sinus tachycardia secondary to sepsis, volume deficiency.Continue Lopressor 25 mg twice daily. 10. Acute kidney injury secondary to ATN secondary to Covid 19 and DKA. Patient continued on hemodialysis. Permanent dialysis catheter placed. 11. Possible acute gram-negative pneumonia versus MRSA pneumonia. Completed course of antibiotics. 12. Hypertension. 13. Morbid obesity with BMI of 53. 14. DVT prophylaxis. Lovenox. 15. GI prophylaxis. Protonix 40 mg IV push daily. CODE STATUS: Full code Prognosis guarded. DISCHARGE PLAN Awake Overnight Counselor Acute Care Impression and plan of care have been directed as dictated by the signing physician. Kimberly Boswell nurse practitioner acting as scribe for signing physician. Objective - Vital Signs Vital signs: Vital Signs Temp 97.5 F L 10/04/20 11:06 Pulse 117 H 10/04/20 11:06 Resp 31 H 10/04/20 11:06 BP 142/74 10/04/20 11:06 Pulse Ox 78 L 10/04/20 11:00 Intake & Output 10/03/20 10/04/20 10/04/20 18:59 06:59 18:59 Intake Total 0895.547 9079.621 570.641 Output Total 1100 0 Balance 319.262 0358.621 570.641 Weight 123.7 kg Intake: IV 279 276 115 0.9 Normal Saline @ KVO 240 240 100 0.9 Normal Saline 39 36 15 Pressure Bag Intake, IV Titration 500.693 438.621 215.641 Amount Norepinephrine 8 mg In 55.264 Sodium Chloride 0.9% 250 ml @ 0.05 MCG/KG/MIN 11. 61 mls/hr IV .[id number] [facility] Rx#:[id number] fentaNYL (PF) 2,500 mcg 145.429 138.721 115.041 In Sodium Chloride 0.9% 200 ml @ Per Protocol IV .Q0M [facility] Rx#:[id number] propofoL 1,000 mg In 300 299.9 100.6 Empty Bag 1 bag @ Per Protocol IV .Q0M [facility] Rx#: [id number] Tube Feeding 360 360 150 Blood Product 0 Rc As-1 Unit 0 [id number] Other 90 90 90 Output: Urine 0 Stool 1100 Other: Voiding Method Indwelling Catheter # Voids 0 0 0 ABP, PAP, CO, CI - Last Documented Arterial Blood Pressure 170/64 - Labs CBC & Chem 7: 10/04/20 04:10 10/04/20 04:10 Labs: Abnormal Lab Results - Last 24 Hours (Table) 10/03/20 10/03/20 10/03/20 Range/Units 12:11 17:53 23:51 RBC (3.80-5.40) m/uL Hgb (11.4-16.0) gm/dL Hct (34.0-46.0) % RDW (11.5-15.5) % Lymphocytes # (1.0-4.8) k/uL D-Dimer (<0.60) mg/L FEU ABG pO2 (83-108) mmHg ABG O2 Saturation (94-97) % Sodium (137-145) mmol/L BUN (7-17) mg/dL Creatinine (0.52-1.04) mg/dL POC Glucose (mg/dL) 170 H 147 H 110 H (75-99) mg/dL Ferritin (10.0-291.0) ng/mL Lactate Dehydrogenase (313-618) U/L C-Reactive Protein (<1.0) mg/dL Total Protein (6.3-8.2) g/dL Albumin (3.5-5.0) g/dL Crossmatch 10/04/20 10/04/20 10/04/20 Range/Units 04:10 04:10 04:10 RBC 2.52 L (3.80-5.40) m/uL Hgb 6.8 L* (11.4-16.0) gm/dL Hct 21.7 L (34.0-46.0) % RDW 16.4 H (11.5-15.5) % Lymphocytes # 0.5 L (1.0-4.8) k/uL D-Dimer 3.28 H (<0.60) mg/L FEU ABG pO2 (83-108) mmHg ABG O2 Saturation (94-97) % Sodium 132 L (137-145) mmol/L BUN 37 H (7-17) mg/dL Creatinine 4.74 H (0.52-1.04) mg/dL POC Glucose (mg/dL) (75-99) mg/dL Ferritin 1801.6 H (10.0-291.0) ng/mL Lactate Dehydrogenase 859 H (313-618) U/L C-Reactive Protein 14.4 H (<1.0) mg/dL Total Protein 5.0 L (6.3-8.2) g/dL Albumin 2.4 L (3.5-5.0) g/dL Crossmatch 10/04/20 10/04/20 Range/Units 04:17 09:20 RBC (3.80-5.40) m/uL Hgb (11.4-16.0) gm/dL Hct (34.0-46.0) % RDW (11.5-15.5) % Lymphocytes # (1.0-4.8) k/uL D-Dimer (<0.60) mg/L FEU ABG pO2 55 L* (83-108) mmHg ABG O2 Saturation 86.0 L (94-97) % Sodium (137-145) mmol/L BUN (7-17) mg/dL Creatinine (0.52-1.04) mg/dL POC Glucose (mg/dL) (75-99) mg/dL Ferritin (10.0-291.0) ng/mL Lactate Dehydrogenase (313-618) U/L C-Reactive Protein (<1.0) mg/dL Total Protein (6.3-8.2) g/dL Albumin (3.5-5.0) g/dL Crossmatch See Detail Microbiology - Last 24 Hours (Table) 10/02/20 23:10 Gram Stain - Preliminary Sputum Sputum Culture - Preliminary 10/02/20 22:55 Blood Culture - Preliminary Blood No Growth after 24 hours 09/28/20 09:45 Blood Culture - Preliminary Blood No Growth after 120 hours 09/28/20 09:45 Blood Culture - Preliminary Blood No Growth after 120 hours
--- NOTE | 2020-10-04 15:25 | PN ---
PROGRESS NOTE Patient is seen for followup for acute kidney injury, currently hemodialysis dependent. She is currently seen on hemodialysis, tolerating her treatment well. UF plan for about 3-4 L as tolerated today. There is concern for possible worsening oxygenation and increasing FiO2. The patient has been in positive balance. We will plan for another treatment today to increase ultrafiltration and oxygenation. PHYSICAL EXAMINATION: The patient is not examined. She is seen from the door. Case is discussed with nursing staff. She is tolerating her dialysis well. Blood pressure noted to be 140/57, heart rate 110 per minute. She is afebrile. The patient remains with edema noted in the upper and lower extremities. She is tolerating her tube feeds. LAB: Show hemoglobin 6.8, sodium 132, potassium 4.1, chloride 100, BUN 37, creatinine 4.7. ASSESSMENT: 1. Kidney injury, acute tubular necrosis, currently oliguric and hemodialysis dependent. We will increase the dialysis to daily mostly for ultrafiltration. 2. Volume overload, repeat dialysis in a.m., mostly ultrafiltration only for volume overload. 3. Hypoxic respiratory failure secondary to COVID pneumonia/ARDS. 4. Anemia, no active bleeding noted, being transfused packed RBCs transfusion. PLAN: Continue with Aranesp. Repeat dialysis in a.m. mostly for ultrafiltration. We will try again 3-4 L of ultrafiltration. I will continue to dialyze on a higher sodium bicarb bath so we can eventually discontinue the oral sodium bicarb. MMBLAINE / FREDN: [id number] /
[2020-10-04 15:54] LABS: Appearance,Urine Turbid (Clear); Bilirubin,Urine Negative (Negative); Blood,Urine Small (Negative); Color,Urine Light Red; Glucose,Urine (UA) Trace (Negative); Ketones,Urine Negative (Negative); Leukocyte Esterase,Urine Large (Negative); Mucus,Urine Rare /hpf; Nitrite,Urine Negative (Negative); PH, Urine 7.5 (5.0-8.0); Protein,Urine 3+ (Negative); RBC,Urine 31 /hpf (0-5); Specific Gravity,Urine 1.027 (1.001-1.035); Squamous Epithelial Cell,Urine 7 /hpf (0-4); Urobilinogen,Urine <2.0 mg/dL (<2.0); WBC,Urine >182 /hpf (0-5)
[2020-10-04 17:26] LABS: HCT 22.6 % (34.0-46.0); HGB 7.6 gm/dL (11.4-16.0); Hypochromasia Slight; MCH 28.9 pg (25.0-35.0); MCHC 33.6 g/dL (31.0-37.0); Mean Platelet Volume 9.9; Platelet Count 165 k/uL (150-450); Poikilocytosis Slight; RBC 2.62 m/uL (3.80-5.40); RDW 15.8 % (11.5-15.5); WBC 4.3 k/uL (3.8-10.6)
[2020-10-04 18:06] LABS: Glucose,Whole Blood 145 mg/dL (75-99)
[2020-10-05] MEDS: fentaNYL (PF) 2,500 MCG in SODIUM CHLORIDE 0.9% 200 ML IV SCH ×3 (00:31→18:48)
[2020-10-05] MEDS: ACETAMINOPHEN TAB 325 MG TAB PO PRN ×3 (00:34→13:26)
[2020-10-05] MEDS: NOREPINEPHRINE 8 MG in SODIUM CHLORIDE 0.9% 250 ML IV SCH ×2 (01:24→11:23)
[2020-10-05 01:30] LABS: Glucose,Whole Blood 133 mg/dL (75-99)
[2020-10-05] MEDS: INSULIN ASPART (NovoLOG) 100 UNIT/ML VIAL SQ SCH ×8 (03:16→18:06)
[2020-10-05 04:53] LABS: Anisocytosis Slight; Basophils % (A) 1 %; Eosinophils # (A) 0.7 k/uL (0-0.7); Eosinophils % (A) 12 %; HCT 23.9 % (34.0-46.0); HGB 7.6 gm/dL (11.4-16.0); Hypochromasia Slight; Lymphocytes # (A) 0.8 k/uL (1.0-4.8); Lymphocytes % (A) 15 %; MCH 27.9 pg (25.0-35.0); MCHC 31.8 g/dL (31.0-37.0); MCV 87.7 fL (80.0-100.0); Monocytes # (A) 0.2 k/uL (0-1.0); Monocytes % (A) 4 %; Neutrophils # (A) 3.5 k/uL (1.3-7.7); Neutrophils % (A) 64 %; Platelet Count 190 k/uL (150-450); Poikilocytosis Slight; RBC 2.72 m/uL (3.80-5.40); RDW 16.4 % (11.5-15.5); WBC 5.5 k/uL (3.8-10.6)
[2020-10-05 05:02] LABS: Albumin 2.3 g/dL (3.5-5.0); Calcium 9.2 mg/dL (8.4-10.2); Potassium 4.5 mmol/L (3.5-5.1); Total Bilirubin 0.2 mg/dL (0.2-1.3)
[2020-10-05 05:18] LABS: C Reactive Protein 21.4 mg/dL (<1.0)
[2020-10-05 05:53] LABS: Glucose,Whole Blood 117 mg/dL (75-99)
[2020-10-05] MEDS: INSULIN DETEMIR (LEVEMIR) 100 UNIT/ML SYR SQ SCH ×2 (06:51→21:46)
[2020-10-05] MEDS: SEVELAMER 800 MG TAB PO SCH ×3 (06:51→17:00)
[2020-10-05 07:13] LABS: ABG Base Excess -0.4 mmol/L; ABG HCO3 26 mmol/L (21-25); ABG Oxygen Saturation 84.3 % (94-97); ABG PCO2 50 mmHg (35-45); ABG PH 7.32 (7.35-7.45); ABG TCO2 27 mmol/L (19-24); Allen Test Performed? Yes
[2020-10-05 07:15] LABS: ABG PO2 56 mmHg (83-108)
[2020-10-05] MEDS: SYMBICORT 160-4.5 MCG INHALER INHALATION SCH ×2 (07:16→19:18)
[2020-10-05] MEDS: ALBUTEROL HFA INHALER INHALATION SCH ×4 (07:16→19:17)
--- NOTE | 2020-10-05 08:25 | XR ---
EXAMINATION TYPE: XR chest 1V portable DATE OF EXAM: 10/05/2020 COMPARISON: 10/04/2020 INDICATION: Mechanical ventilation TECHNIQUE: Single frontal view of the chest is obtained. FINDINGS: The heart size is enlarged. The pulmonary vasculature is prominent. Diffuse increased lung markings are present bilaterally. Findings are nonspecific. Pulmonary edema an d atypical pneumonia could be considered. Tracheostomy tube is in the midline. Dialysis catheters on the right. PICC line is present on the rig ht with the tip in the superior vena cava region IMPRESSION: 1. Diffuse increased lung opacity slightly worsened over the interval.
[2020-10-05] MEDS: CHOLECALCIFEROL 25 MCG (1000 IU) TABLET PO SCH (08:39)
[2020-10-05] MEDS: ENOXAPARIN 30 MG/0.3 ML SYRINGE SQ SCH (08:39)
[2020-10-05] MEDS: SODIUM BICARBONATE TAB 650 MG TAB PO SCH ×3 (08:39→21:46)
[2020-10-05] MEDS: ASCORBIC ACID 500 MG TAB PO SCH ×2 (08:40→21:46)
[2020-10-05] MEDS: ZINC SULFATE 220 MG CAP PO SCH (08:40)
[2020-10-05] MEDS: DEXAMETHASONE SOD PHOSPHATE 4 MG/ML 1 ML VIAL IV SCH (08:40)
[2020-10-05] MEDS: PANTOPRAZOLE 40 MG/10 ML VIAL IVP SCH (08:40)
[2020-10-05] MEDS ORDERED: CISATRACURIUM 2 MG/ML 5 ML VIAL IV ONE ×3 (10:20→12:52)
[2020-10-05] MEDS: CISATRACURIUM 200 MG in SODIUM CHLORIDE 0.9% 180 ML IV SCH ×2 (10:31→18:48)
[2020-10-05 11:19] LABS: Ferritin 1770.4 ng/mL (10.0-291.0)
[2020-10-05 12:23] LABS: Glucose,Whole Blood 169 mg/dL (75-99)
--- NOTE | 2020-10-05 13:10 | P.PN ---
Subjective Progress Note Date: 10/05/20 HISTORY OF PRESENT ILLNESS 35-year-old female patient of Dr. Arroyo with past medical history of type 2 diabetes comes in with acute shortness of breath associated with high light s ugars. Patient on admission was found to have a fever of 101.5 pulse rate 125 respiratory rate 20. Blood pressure 132/106. On chest x-ray obtained in the ER suggestive of bilateral infiltrates concerning for call with pneumonia. COVID PCR was positive. On admissions patient had an ABG with a pH of 7.14 pCO2 of 20, pO2 of 59, bicarb of 7. Patient's blood sugar on admission was 424 on assessment today patient's blood work patient had a sodium 135 potassium 5.4 chloride 123 bicarb less than 5 and creatinine 0.73. D-dimer was elevated on admission patient 9 28 patient given 1 L of IV fluids followed by normal saline running at 200 mL/h. Patient was positive for acetone on admission. She will anion gap closed and was switched to D5NS. Insulin drip was continued during the night and was switched to patient's home medication this morning. One dose of remdesiver was ordered. Apparently around noon, A- team was called on the patient secondary to hypoxia patient's oxygen saturation dropped to the 70s and 80s on 100% nonrebreather. Patient was switched to BiPAP on 18/12 and is doing better o FiO2 of 80%. ABG was obtained and ph was 7. 14 pCO2 of 28 bicarb of 7 pO2 of 17. Patient noted to have uncompensated metabolic acidosis with compensated respiratory alkalosis. Stat dose of 1 amp bicarb was given and followed by sodium bicarbonate drip. Insulin drip restarted. Patient's initiated on dexamethasone 6 mg IV twice a day. Potassium phosphate ordered as phosphorus is low. Patient's repeat blood gases suggest a pH of 7.25, CO2 32 pO2 of 72 bicarb 14. I will not normal saline at 100 mL/h as patient's anion gap has increased. Patient given 1 dose of 2 mg of morphine with improvement in respiratory rate. One dose of Ativan 0.5 mg was given. Xanax 0.25 twice a day along with Ativan 0.5 IV every 6 hours ordered for the patient. Vitals were evaluated patient pulse 129 [id number]. She was moved to the ICU. Precedex drip was initiated. Lopressor was initiated at 25 twice a day. Metoprolol tartrate 5 mg IV every 6 hours. Systolic blood pressure more than 160. Started chest x-ray was obtained and suggest stable bilateral consolidation suggestive of COVID-19 pneumonia. 09/12 patient is seen in the ICU is currently mechanically ventilated and sedated on vent settings of respiratory rate 36, tidal volume 375 FiO2 80% PEEP of 18.. Vital signs reviewed patient had a temp of 100.4 pulse 150 respiratory rate 36 oxygen saturation 95% on 80% on fio2 .'s labs are reviewed which patient had a d-dimer 1.84 that is increased to 14.3. Arterial Blood gas suggest ph 7.35, CO2 40, po2 62, . Her BMP suggest a sodium 135 potassium 3.7 chloride 112 bicarb 21 creatinine 1.57 for calcitonin is 3.5 CRP is increased from 8.78.2 LDH is increased to 2614. Patient remains on Pneumovax, propofol drip. Lovenox increased to 50 subcu twice a day. Patient received 2 L of IV fluids. Continue IV fluids at 100 mL/h. Bicarb drip discontinued patient initiated on Zosyn 3.375 every 8 hours. Continue insulin drip at 4 units per hour. Patient is currently in prone positioning 09/13: Patient evaluated in the ICU remains on Ventilation continues to be sedated, in prone position. Vent settings are respiratory rate 36, tidal vital 375, FiO2 70% PEEP of 18. ABG shows pO2 of 82, PCO2 of 39, pH is 7.19. Latest labs show WBC 11.1, hemoglobin 13.2, d-dimer still pending, but yesterday was up to 14.3. Creatinine up to 3.4, BUN 24 sodium 137, potassium 4.0. Patient's urine output has been low, nephrology on consult. Bicarb drip increased to 100 miles an hour, receiving another liter of normal saline, she did have a ultrasound that showed unremarkable bilateral kidneys. Repeat chest x-ray showed bilateral lung infiltrates that are stable. Anion gap has closed, will start Lantus 10 units at at bedtime Novolog every 6 hours. 09/14: Patient is seen in the ICU, still currently mechanically ventilated and sedated. She continues in the prone position. Her oxygen quickly drops if she is not in prone. Patient's kidney function has worsened. Laboratory values show creatinine of 4.87, BUN 33, LDH 2191, C-reactive protein 2.7. ABG shows pH 7.32, pO2 of 60, pCO2 43. Patient is making almost no urine overnight. Nephrology is following patient continues on cefepime for urinary tract infection, culture is still pending. Vascular has been consulted for placement of temporary hemodialysis catheter for plans for dialysis. 09/15: Patient evaluated in the ICU, continues to be mechanically ventilated and sedated on assist control ventilation rate of 36, tidal volume 375, FiO2 100% and PEEP of 18. ABG today shows pO2 58, pCO2 of 45, and pH 7.35. She continues on tube feedings. Yesterday patient underwent ultrasound-guided right internal jugular non-tunneled hemodialysis catheter placement. Patient underwent hemodialysis treatment last night and plans have another hemodialysis treatment today. She continues to make almost no urine. She continues on cefepime for antibiotic coverage, and continues on Decadron and Lovenox. 09/16: Patient seen on follow-up remains in the ICU mechanically ventilated and sedated. She continues on assist control rate of 36, tidal volume 375, FiO2 100% and PEEP of 20. PEEP had to be increased due to patient had to be in supine position for dialysis, will go back to prone position once dialysis is complete. ABG shows pH 7.32, pCO2 49, PaO2 61. Laboratory values showed WBC 11.2, hemoglobin 11, sodium 134, creatinine 4.44, BUN 38. Urine culture shows no growth, blood cultures show no growth to date. Repeat chest x-ray shows bilateral pleural effusions, correlate for ARDS, pulmonary edema, diffuse pneumonia, findings are stable from last exam. Patient does not require any pressors, blood pressure 133/57, heart rate 78. 5/16: Patient was evaluated in the ICU today for follow-up. She continues to be intubated and on mechanical ventilation. Current vent settings are tidal volume 375, FiO2 100% and PEEP of 20. ABG shows pH 7.37, pCO2 40, pO2 102. She continues with intermittent prone positioning. Patient continues to have almost no urine output, maintained on dialysis. Patient received dialysis yesterday without complication. Laboratory values revealed WBC 10.3, hemoglobin 10.4, sodium 132, potassium 3.1, BUN 33, creatinine 4.29, LDH 1913, C-reactive protein 1.3. Urine and sputum cultures are negative, blood cultures show no growth to date. Consult placed to dietary to start TPN[ ] 09/18: She remains in the intensive care unit intubated and on mechanical ventilation with tidal volume 375, FiO2 60 and PEEP of 20. Patient is being prone to daily at approximately 16 hours per day. Pulmonary medicine has added in Dr. Zhang to do PEG tube and trach today. Patient is not on vasopressors. Repeat blood work reveals WBC 12.6, hemoglobin 9.8, platelet count 212. Sodium 133, potassium 3.2, chloride 102, CO2 21, BUN 35 and creatinine 4.12. Blood sugar 126. Patient underwent hemodialysis yesterday with removal of 2 L and is scheduled again today with goal of 2-3 L and is scheduled again tomorrow. 09/19: She is scheduled for hemodialysis today and is off fentanyl temporarily. Patient is status post trach and PEG tube yesterday. And she remains on mechanical ventilation. Pulse ox 93-95%. She has been afebrile, heart rate 64, respiratory rate 36, blood pressure 115/50. Fentanyl is off to improve blood pressure for hemodialysis which is scheduled for today. Contacted vascular surgery about permanent hemodialysis catheter. Repeat blood work reveals WBC 14.3, hemoglobin 9.6, platelet count 200. D-dimer 6.48. LDH 1686. C-reactive protein 1.1. BUN 34 creatinine 3.81. Sodium 130, potassium 3.5, chloride 101, CO2 18. Blood sugars running between 101 198. Plan is to wean off Pneumovax today. Patient remains on insulin drip. Repeat chest x-ray reveals bilateral multifocal confluent opacities consistent with COVID-19. Some improved aeratio n periphery of the left lung and worsening opacities throughout the right lung. 09/20: She remains in the intensive care unit on mechanical ventilation. She has been afebrile, heart rate 65, respiratory rate 37, blood pressure 121/70, pulse ox 91-99%. Repeat blood work reveals WBC 14.5, hemoglobin 9.1, platelet count 216. D-dimer 6.13. Sodium 133, potassium 3.1, chloride 102, CO2 18, BUN 35 and creatinine 4.27. Blood sugars running between 128 and 143. LDH 1717. C- reactive protein 1.7. Patient remains on insulin drip which will be transitioned to NovoLog scale every 6 hours. Patient is scheduled for permanent hemodialysis catheter placement today with vascular surgery. Repeat chest x-ray reveals stable diffuse bilateral interstitial and airspace disease. Possible small right effusion. His work is following for [facility]. Do not anticipate discharge until next week. 09/21: Patient is undergoing hemodialysis. She remains on mechanical ventilation with tidal volume 375, FiO2 down to 45 and PEEP was decreased to 15. Patient is continued on propofol, fentanyl drips. She is on tube feedings at goal. Patient was taken off insulin drip yesterday and on scale only but blood sugars are running in the 200s, Levemir scheduled at bedtime will be added. Other blood work reveals WBC 13.3, hemoglobin 8.7, platelet count 192. Sodium 137, potassium 3.6, chloride 107, CO2 18, BUN 34 and creatinine 4.21. Repeat chest x-ray is stable. 09/22: She remains in the intensive care on mechanical ventilation with tidal volume 375, FiO2 of 50 and PEEP of 10. Pulse ox is running 96%. She is afebrile, heart rate in the 50s, respiratory rate 36, blood pressure 100/64. Repeat blood work reveals WBC 16.5, hemoglobin 8.9, platelet count 213. Sodium 134, potassium 3.7, chloride 103, CO2 21, BUN 34 and creatinine 3.89. Blood sugars running in the 200s to 324. Levemir increased to 16 units at bedtime and continue NovoLog scale every 6 hours. Patient is on tube feedings at goal. She has a Haley catheter in with a scant amount of dark/brown urine. Fecal management system is in place. Repeat chest x-ray reveals diffuse bilateral airspace infiltrates persist unchanged. Patient is scheduled for hemodialysis tomorrow morning on Friday. 09/23: Patient remains on mechanical ventilation with tidal volume 3.75, FiO2 50 and PEEP of 10. monitoring specialist sinus rhythm. She has no urine output. Fecal management system is in place. She is undergoing dialysis at this time with plan for removal of 2-1/2 L. She has been afebrile, heart rate in the 50s, respiratory rate 36, blood pressure 108/76 and pulse ox 89%. WBC 13.6, hemoglobin 9.1, platelet count 194. Sodium 136, potassium 3.0 and was replaced, chloride 106, CO2 21, BUN 49 creatinine 5.31. Blood sugars are running between 182 and this morning 194. Patient was still in the 200s and 300s. Levemir last evening was increased to 16 units. Patient remains on propofol and fentanyl drips. Lovenox was increased to 60 mg twice daily. 09/24: PEEP was increased today to 20, tidal volume is at 375 and FiO2 of 50%. Patient has been afebrile. She has been started on levo fed. Repeat chest x- ray reveals bilateral multifocal confluent opacities consistent with Covid 19 or ARDS redemonstrated. Nephrology will plan dialysis for tomorrow for 3 L. Patient remains on propofol fentanyl and Nimbex. WBC 12.5, hemoglobin 9.8, platelet count 161. D-dimer 13.3. Sodium 132, potassium 3.4, chloride 102, CO2 20, BUN 48 and creatinine 4.67. Blood sugars extremely elevated to 96-409. LDH 2217. 09/25: Patient remains in the intensive care unit on mechanical ventilation with tidal volume 375, FiO2 50 and PEEP of 20. Patient is afebrile, heart rate 61, respiratory rate 36, blood pressure 102/56, pulse ox 97%. Repeat blood work reveals WBC 9.3, hemoglobin 8.5 and platelet count 171. Sodium 130, potassium 3.7, chloride 100, CO2 20, BUN 61 creatinine 5.65. Blood sugars have been elev ated up to 455. Levemir increased to 20 units twice daily, NovoLog 5 units every 6 hours and continue NovoLog scale. Patient is scheduled for hemodialysis today. Repeat chest x-ray reveals bilateral multifocal and confluent opacities. Decadron and Lovenox dosing change by pulmonary. Patient is off norepinephrine. 09/26: Patient remains in the intensive care unit on mechanical ventilation with tidal volume 375, FiO2 50 and PEEP of 15. She has been afebrile, heart rate 91, blood pressure 114/68, pulse ox 99%. monitoring specialist sinus rhythm. 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 Sodium 134, potassium 3.6, chloride 102, CO2 22, BUN 41 creatinine 4.21. Patient has improved blood sugars this morning running 150s and 160s. Diabetic medications were adjusted yesterday. Patient is awake and alert and interacting. Yesterday, patient had PICC line inserted by interventional radiology. Repeat chest x-ray reveals diffuse airspace infiltrates in both lung ann appear to progress slightly in the interval. 09/27: Patient remains in intensive care unit on mechanical ventilation with improvement of settings with tidal volume 375, FiO2 decreased to 40 and PEEP decreased to 10. Patient is on hemodialysis every other day and plan to remove 3 L today. Patient is more awake and alert. She is slow to respond but is able to follow simple commands. Blood sugars are running between 84 and 123. Repeat blood work reveals WBC 7.1, hemoglobin 8.1, platelets 152. Sodium 135, potassium 3.6, chloride 103, CO2 21, BUN 53 and creatinine 5.88. Repeat chest x-ray revealed cardiomegaly and pulmonary edema. Patient is on tube feedings:. Patient is not require vasopressors and is off sedation. Fecal management system remains in place for brown liquid stool. C. difficile was negative. 09/28: Patient remains on mechanical ventilation with tidal volume 375, FiO2 increased to 80 and PEEP increased to 18. Patient had a rough night was very anxious, no pain. Xanax 0.25 mg 3 times daily was added. There is concern for pulmonary embolism for which patient was started on heparin drip, she is unable to undergo CAT scan. Venous Doppler bilateral lower extremities was nondiagnostic due to extensive edema in obese patient but minimal imaging of the popliteal veins does show flow. Repeat echocardiogram has been ordered. Cefepime has also been ordered at 1 g IV piggyback every 24 hours as well as vancomycin, pharmacy dosing. Patient is back on fentanyl drip, propofol drip and norepinephrine. Blood sugars are elevated and insulin Levemir will be i ncreased to 25 mg twice daily. Ferrlecit infusion has been ordered by nephrology for 4 days. Patient is undergoing hemodialysis today.temperature max 100.2, heart rate 134, respiratory rate 34, blood pressure 120/65, pulse ox 94%. monitoring specialist is sinus tachycardia. Repeat blood work reveals WBC 16.9, hemoglobin 9.7, platelet count 216. D-dimer 8.81. Sodium 134, potassium 3.8, chloride 99, CO2 25, BUN 43 and creatinine 5.36. Blood sugars in the 200s. AST 40. 09/29 Patient had declined more last 48 hours require more sedation, patient is doing hemodialysis, respiratory failure is quite bit worse this time. Patient was inquired the pain is well back on fentanyl drip. Her vent set up with PEEP is limited but higher. No new finding on culture and her chest x-ray continues shows diffuse infiltrate persistent although there is a moderate interval improvement. 09/30 patient's was seen and evaluated. PEEP was reduced to 11 as patient is maintaining good saturation at the current vent settings. 10/01 patient was seen at bedside. She is currently on assist control rate of 28 white tidal volume 350 FiO2 50% and PEEP of 10 which has been reduced by pulmonary as patient name cleaning her oxygen saturation. Arm blood gas was obtained with a pH of 7.35 pCO2 37 pO2 of 63. She remains hemodynamically stable with no need for pressors. Labs were reviewed patient's BUN is 29 crea tinine 3.93 glucose 122 albumin 2.2 sodium 131 chloride 19 hemoglobin is downtrending with a Hb of 7.3 no leukocytosis 7.1. Patient's urine output is minimal at this time. Her rate has increased to 129 and is currently on positive fluid balance even with dialysis. Last dialysis was done yesterday. Continue enteral feeding currently at goal. Antibiotic has been discontinued and continues to remain on DEXA methicillin 4 mg IV daily. 10/02 patient continues to be on trach support with mechanical ventilation. Patient was evaluated by electronic imaging system operator and was switched to VC control as patient was noted to be double stacking on and off throughout the night. Respiratory rate continue to 28 tidal volume increased to 400 with a PEEP for Dr. Downey. Patient is maintaining oxygen saturation 91% on the current setting. According to the nurse bedside patient saturation drops significantly or she is moved or her sedation is dropped. Patient is currently on propofol drip, fentanyl drip. She did underwent dialysis today and was able to maintain her low pressure without the need of pressors. Labs reviewed today suggest a WBC of 6.7 hemoglobin of 7.0 and d-dimer 3.9 bicarb 17 BUN 38 creatinine 4.8. LDH is 964. Sodium 1:30 likely secondary to volume overload. Urine sodium and urine osmolality ordered. Patient's glucose this morning is 146. Continue to remain on enteral feeding. Urine output is reduced. Fall catheter will be placed today. Continue to remain on dialysis. 10/03: Patient remains on mechanical ventilation and is back on propofol and fentanyl drips. Patient is currently on VC control with tidal volume 400, FiO2 55 and PEEP of 12. Patient still is not making any urine and is dialysis dependent with next treatment planned for tomorrow with removal of 3-3-1/2 L. PEG tube feedings are at goal. Fecal management system remains in place. At the time of evaluation, patient is off levophed. Repeat chest x-ray reveals stable diffuse bilateral airspace disease correlate for ARDS, pulmonary edema or diffuse pneumonia. Temperature max last evening was 101. Temperature currently 99, heart rate 106, respiratory rate 32, blood pressure 101/50, pulse ox 86%. Repeat blood work reveals WBC 6, hemoglobin 7.4, platelet count 160. D-dimer 4.05. Sodium 133, potassium 3.5, chloride 100, CO2 23, BUN 31 creatinine 3.8. Blood sugars are running between 100 and 170. Ferritin 1514. Liver function test normal. LDH 1016, C-reactive protein 13.6. Prognosis remains guarded. 10/04: Patient remains intubated on mechanical ventilation with tidal volume 400, FiO2 65, PEEP of 14. Patient continues to run fevers and repeat blood culture and urine and urine culture ordered for today. Haley catheter has been removed this patient has no significant urine output at about 20 mL per shift. BladderScan is monitored for greater than 300 and the patient is straight cathed. Hemoglobin is 6.8 and she has been ordered 41 unit of packed RBCs today. She is currently on propofol and fentanyl drips. She is scheduled for hemodialysis today. WBC 4.5, hemoglobin 6.8, platelet count 151. D-dimer 3.28. Sodium 132, potassium 4.1, chloride 100, CO2 22, BUN 37 creatinine 4.74. Blood sugars running between 97 and 110. Ferritin 1801. LDH 859. C-reactive protein 14.4. Chest x-ray reveals correlate for pneumonia, edema, ARDS. Prognosis remains guarded. 10/05: Patient remains in intensive care unit currently on mechanical ventilation with tidal volume 400, FiO2 was increased to 100 and PEEP is at 14. She continues to run fevers which have worsened with temperature max 103.1. She has been tachycardic in the 130s, blood pressure is marginal but not on vasopressors. Pulse ox currently 92%. Repeat blood work reveals WBC 5.5, hemoglobin 7.6, platelet count 190. D-dimer 2.7, ferritin 1770, LDH 932, C- reactive protein 21.4. Blood sugars are running between 100 1669. Electrolytes are normal. BUN 27 and creatinine 3.79. Pancultures were done yesterday including a straight cath for urine culture, sputum culture and blood culture. Arterial line was removed as well as midline. She is currently on propofol, fen tanyl and started on Nimbex today. REVIEW OF SYSTEMS Unable to obtain due to mechanical ventilation. PHYSICAL EXAMINATION Gen: This is is a 35-year-old black female, patient is intubated and on mechanical ventilation, appears to be comfortable. HEENT: Head is atraumatic, normocephalic. NEUROLOGICAL: Patient is sedated. Full physical examination deferred to electronic imaging system operator due to Covid 19 and intubation. ASSESSMENT AND PLAN 1. Acute hypoxic respiratory failure secondary to Covid 19 pneumonia and possible bacterial pneumonia. Patient was intubated on September 11. She is status post 1 dose of Remdesivir and 1 dose of Tocilizumab. Continue Ventolin inhaler 4 times daily, Symbicort twice daily, Decadron 4 mg IV daily, Lovenox 30 mg subcu daily, supplements. Status post PEG tube and trach. 2. Acute diabetic ketoacidosis secondary to Covid 19 pneumonia, uncontrolled with hyperglycemia. Levemir 25 units twice daily, scheduled NovoLog 5 units every 6 hours and NovoLog scale. 3. Metabolic encephalopathy secondary to Covid 19 and DKA. 4. Sepsis and septic shock secondary to Covid 19 pneumonia with multiorgan failure. Continue as in #1. 5. Acute metabolic acidosis secondary to acute DKA, Covid 19 and acute kidney injury. 6. Diabetes mellitus type 2 uncontrolled with A1c 13.6. Continue as above. 7. Hypophosphatemia status post replacement. 8. Hyperkalemia secondary to DKA, resolved. 9. Sinus tachycardia secondary to sepsis, volume deficiency.Continue Lopressor 25 mg twice daily. 10. Acute kidney injury secondary to ATN secondary to Covid 19 and DKA. Patient continued on hemodialysis. Permanent dialysis catheter placed. 11. Possible acute gram-negative pneumonia versus MRSA pneumonia. Completed course of antibiotics. 12. Hypertension. 13. Morbid obesity with BMI of 53. 14. DVT prophylaxis. Lovenox. 15. GI prophylaxis. Protonix 40 mg IV push daily. CODE STATUS: Full code Prognosis guarded. DISCHARGE PLAN [facility] Impression and plan of care have been directed as dictated by the signing physician. Kimberly Boswell nurse practitioner acting as scribe for signing physician. Objective - Vital Signs Vital signs: Vital Signs Temp 101.4 F H 10/05/20 04:00 Pulse 129 H 10/05/20 09:00 Resp 28 H 10/05/20 09:00 BP 110/55 10/05/20 09:00 Pulse Ox 83 L 10/05/20 09:00 Intake & Output 10/04/20 10/05/20 10/05/20 18:59 06:59 18:59 Intake Total 1337.459 8884.92 240 Output Total 4020 0 Balance -2414.947 1323.92 240 Weight 123.7 kg 121.8 kg Intake: IV 276 135 30 0.9 Normal Saline @ KVO 240 120 30 0.9 Normal Saline 36 15 Pressure Bag Intake, IV Titration 509.053 753.92 Amount fentaNYL (PF) 2,500 mcg 209.053 250 In Sodium Chloride 0.9% 200 ml @ Per Protocol IV .Q0M [facility] Rx#:[id number] propofoL 1,000 mg In 300.0 503.92 Empty Bag 1 bag @ Per Protocol IV .Q0M [facility] Rx#: [id number] Tube Feeding 360 330 90 Blood Product 310 Rc As-1 Unit 310 [id number] Other 150 105 120 Output: Urine 20 0 Hemodialysis 4000 Other: # Voids 0 ABP, PAP, CO, CI - Last Documented Arterial Blood Pressure 86/48 - Labs CBC & Chem 7: 10/05/20 04:00 10/05/20 04:00 Labs: Abnormal Lab Results - Last 24 Hours (Table) 10/04/20 10/04/20 10/04/20 Range/Units 04:10 09:20 15:35 RBC (3.80-5.40) m/uL Hgb (11.4-16.0) gm/dL Hct (34.0-46.0) % RDW (11.5-15.5) % Lymphocytes # (1.0-4.8) k/uL D-Dimer (<0.60) mg/L FEU ABG pH (7.35-7.45) ABG pCO2 (35-45) mmHg ABG pO2 (83-108) mmHg ABG HCO3 (21-25) mmol/L ABG Total CO2 (19-24) mmol/L ABG O2 Saturation (94-97) % BUN (7-17) mg/dL Creatinine (0.52-1.04) mg/dL Glucose (74-99) mg/dL POC Glucose (mg/dL) (75-99) mg/dL Ferritin 1801.6 H (10.0-291.0) ng/mL Lactate Dehydrogenase (313-618) U/L C-Reactive Protein (<1.0) mg/dL Total Protein (6.3-8.2) g/dL Albumin (3.5-5.0) g/dL Urine Appearance Turbid H (Clear) Urine Protein 3+ H (Negative) Urine Glucose (UA) Trace H (Negative) Urine Blood Small H (Negative) Ur Leukocyte Esterase Large H (Negative) Urine RBC 31 H (0-5) /hpf Urine WBC >182 H (0-5) /hpf Urine WBC Clumps Many H (None) /hpf Ur Squamous Epith Cells 7 H (0-4) /hpf Urine Mucus Rare H (None) /hpf Crossmatch See Detail 10/04/20 10/04/20 10/05/20 Range/Units 17:10 18:04 01:28 RBC 2.62 L (3.80-5.40) m/uL Hgb 7.6 L (11.4-16.0) gm/dL Hct 22.6 L (34.0-46.0) % RDW 15.8 H (11.5-15.5) % Lymphocytes # (1.0-4.8) k/uL D-Dimer (<0.60) mg/L FEU ABG pH (7.35-7.45) ABG pCO2 (35-45) mmHg ABG pO2 (83-108) mmHg ABG HCO3 (21-25) mmol/L ABG Total CO2 (19-24) mmol/L ABG O2 Saturation (94-97) % BUN (7-17) mg/dL Creatinine (0.52-1.04) mg/dL Glucose (74-99) mg/dL POC Glucose (mg/dL) 145 H 133 H (75-99) mg/dL Ferritin (10.0-291.0) ng/mL Lactate Dehydrogenase (313-618) U/L C-Reactive Protein (<1.0) mg/dL Total Protein (6.3-8.2) g/dL Albumin (3.5-5.0) g/dL Urine Appearance (Clear) Urine Protein (Negative) Urine Glucose (UA) (Negative) Urine Blood (Negative) Ur Leukocyte Esterase (Negative) Urine RBC (0-5) /hpf Urine WBC (0-5) /hpf Urine WBC Clumps (None) /hpf Ur Squamous Epith Cells (0-4) /hpf Urine Mucus (None) /hpf Crossmatch 10/05/20 10/05/20 10/05/20 Range/Units 04:00 04:00 04:00 RBC 2.72 L (3.80-5.40) m/uL Hgb 7.6 L (11.4-16.0) gm/dL Hct 23.9 L (34.0-46.0) % RDW 16.4 H (11.5-15.5) % Lymphocytes # 0.8 L (1.0-4.8) k/uL D-Dimer 2.70 H (<0.60) mg/L FEU ABG pH (7.35-7.45) ABG pCO2 (35-45) mmHg ABG pO2 (83-108) mmHg ABG HCO3 (21-25) mmol/L ABG Total CO2 (19-24) mmol/L ABG O2 Saturation (94-97) % BUN 27 H (7-17) mg/dL Creatinine 3.79 H (0.52-1.04) mg/dL Glucose 116 H (74-99) mg/dL POC Glucose (mg/dL) (75-99) mg/dL Ferritin (10.0-291.0) ng/mL Lactate Dehydrogenase 932 H (313-618) U/L C-Reactive Protein 21.4 H (<1.0) mg/dL Total Protein 5.0 L (6.3-8.2) g/dL Albumin 2.3 L (3.5-5.0) g/dL Urine Appearance (Clear) Urine Protein (Negative) Urine Glucose (UA) (Negative) Urine Blood (Negative) Ur Leukocyte Esterase (Negative) Urine RBC (0-5) /hpf Urine WBC (0-5) /hpf Urine WBC Clumps (None) /hpf Ur Squamous Epith Cells (0-4) /hpf Urine Mucus (None) /hpf Crossmatch 10/05/20 10/05/20 Range/Units 05:51 07:05 RBC (3.80-5.40) m/uL Hgb (11.4-16.0) gm/dL Hct (34.0-46.0) % RDW (11.5-15.5) % Lymphocytes # (1.0-4.8) k/uL D-Dimer (<0.60) mg/L FEU ABG pH 7.32 L (7.35-7.45) ABG pCO2 50 H (35-45) mmHg ABG pO2 56 L* (83-108) mmHg ABG HCO3 26 H (21-25) mmol/L ABG Total CO2 27 H (19-24) mmol/L ABG O2 Saturation 84.3 L (94-97) % BUN (7-17) mg/dL Creatinine (0.52-1.04) mg/dL Glucose (74-99) mg/dL POC Glucose (mg/dL) 117 H (75-99) mg/dL Ferritin (10.0-291.0) ng/mL Lactate Dehydrogenase (313-618) U/L C-Reactive Protein (<1.0) mg/dL Total Protein (6.3-8.2) g/dL Albumin (3.5-5.0) g/dL Urine Appearance (Clear) Urine Protein (Negative) Urine Glucose (UA) (Negative) Urine Blood (Negative) Ur Leukocyte Esterase (Negative) Urine RBC (0-5) /hpf Urine WBC (0-5) /hpf Urine WBC Clumps (None) /hpf Ur Squamous Epith Cells (0-4) /hpf Urine Mucus (None) /hpf Crossmatch Microbiology - Last 24 Hours (Table) 10/04/20 15:35 Urine Culture - Preliminary Urine,Voided 10/02/20 22:55 Blood Culture - Preliminary Blood No Growth after 48 hours 10/04/20 15:35 Gram Stain - Preliminary Sputum Sputum Culture - Preliminary 09/28/20 09:45 Blood Culture - Final Blood No Growth after 144 hours 09/28/20 09:45 Blood Culture - Final Blood No Growth after 144 hours 10/02/20 23:10 Gram Stain - Preliminary Sputum Sputum Culture - Preliminary
--- NOTE | 2020-10-05 13:25 | P.PN ---
Subjective Progress Note Date: 10/05/20 CHIEF COMPLAINT: COVID-19 pneumonia HISTORY OF PRESENT ILLNESS: Patient is in the ICU for COVID-19 pneumonia and respiratory failure. She is status post tracheostomy and PEG tube placement with Dr. hollis. Patient is tolerating tube feedings. Her to feedings are at goal at 30 mL per hour. She is having stools and has fecal management system in place. Patient remains on mechanical ventilation. Her PEEP is at 14. Patient continues to have fevers. Patient's arterial line and midline were removed and sent for cultures. Patient has required be paralyzed again. White count 5.5 hemoglobin 7.6 Patient seen and examined with Dr. hollis PHYSICAL EXAM: VITAL SIGNS: Reviewed. GENERAL: Well-developed in no acute distress. HEENT: No sclera icterus. Extraocular movements grossly intact. Moist buccal mucosa. Head is atraumatic, normocephalic. Tracheostomy site clean dry and intact. No evidence of bleeding ABDOMEN: Soft. Nondistended. Nontender. PEG tube site clean dry and intact NEUROLOGIC: Sedated ASSESSMENT: 1. Acute hypoxic respiratory failure with prolonged mechanical ventilation due to COVID-19 pneumonia status post tracheostomy placement 2. Severe protein calorie malnutrition status post PEG tube placement PLAN: -Continue tube feedings -Continue supportive care -Continue ICU management Physician Casing Cleaner note has been reviewed by physician. Signing provider agrees with the documented findings, assessment, and plan of care. Objective - Vital Signs Vital signs: Vital Signs Temp 101.4 F H 10/05/20 04:00 Pulse 138 H 10/05/20 11:00 Resp 32 H 10/05/20 11:00 BP 105/59 10/05/20 11:00 Pulse Ox 92 L 10/05/20 11:00 Intake & Output 10/04/20 10/05/20 10/05/20 18:59 06:59 18:59 Intake Total 6745.043 9561.92 676.334 Output Total 4020 0 Balance -2414.947 1323.92 676.334 Weight 123.7 kg 121.8 kg Intake: IV 276 135 50 0.9 Normal Saline @ KVO 240 120 50 0.9 Normal Saline 36 15 Pressure Bag Intake, IV Titration 509.053 753.92 356.334 Amount Cisatracurium 200 mg In 6.334 Sodium Chloride 0.9% 180 ml @ 1 MCG/KG/MIN 7.308 mls/hr IV .Q24H [facility] Rx#: [id number] Norepinephrine 8 mg In 0 Sodium Chloride 0.9% 250 ml @ 0.05 MCG/KG/MIN 11. 61 mls/hr IV .[id number] [facility] Rx#:[id number] fentaNYL (PF) 2,500 mcg 209.053 250 250 In Sodium Chloride 0.9% 200 ml @ Per Protocol IV .Q0M [facility] Rx#:[id number] propofoL 1,000 mg In 300.0 503.92 100 Empty Bag 1 bag @ Per Protocol IV .Q0M [facility] Rx#: [id number] Tube Feeding 360 330 150 Blood Product 310 Rc As-1 Unit 310 [id number] Other 150 105 120 Output: Urine 20 0 Hemodialysis 4000 Other: # Voids 0 ABP, PAP, CO, CI - Last Documented Arterial Blood Pressure 86/48 - Labs CBC & Chem 7: 10/05/20 04:00 10/05/20 04:00 Labs: Abnormal Lab Results - Last 24 Hours (Table) 10/04/20 10/04/20 10/04/20 Range/Units 09:20 15:35 17:10 RBC 2.62 L (3.80-5.40) m/uL Hgb 7.6 L (11.4-16.0) gm/dL Hct 22.6 L (34.0-46.0) % RDW 15.8 H (11.5-15.5) % Lymphocytes # (1.0-4.8) k/uL D-Dimer (<0.60) mg/L FEU ABG pH (7.35-7.45) ABG pCO2 (35-45) mmHg ABG pO2 (83-108) mmHg ABG HCO3 (21-25) mmol/L ABG Total CO2 (19-24) mmol/L ABG O2 Saturation (94-97) % BUN (7-17) mg/dL Creatinine (0.52-1.04) mg/dL Glucose (74-99) mg/dL POC Glucose (mg/dL) (75-99) mg/dL Ferritin (10.0-291.0) ng/mL Lactate Dehydrogenase (313-618) U/L C-Reactive Protein (<1.0) mg/dL Total Protein (6.3-8.2) g/dL Albumin (3.5-5.0) g/dL Urine Appearance Turbid H (Clear) Urine Protein 3+ H (Negative) Urine Glucose (UA) Trace H (Negative) Urine Blood Small H (Negative) Ur Leukocyte Esterase Large H (Negative) Urine RBC 31 H (0-5) /hpf Urine WBC >182 H (0-5) /hpf Urine WBC Clumps Many H (None) /hpf Ur Squamous Epith Cells 7 H (0-4) /hpf Urine Mucus Rare H (None) /hpf Crossmatch See Detail 10/04/20 10/05/20 10/05/20 Range/Units 18:04 01:28 04:00 RBC 2.72 L (3.80-5.40) m/uL Hgb 7.6 L (11.4-16.0) gm/dL Hct 23.9 L (34.0-46.0) % RDW 16.4 H (11.5-15.5) % Lymphocytes # 0.8 L (1.0-4.8) k/uL D-Dimer (<0.60) mg/L FEU ABG pH (7.35-7.45) ABG pCO2 (35-45) mmHg ABG pO2 (83-108) mmHg ABG HCO3 (21-25) mmol/L ABG Total CO2 (19-24) mmol/L ABG O2 Saturation (94-97) % BUN (7-17) mg/dL Creatinine (0.52-1.04) mg/dL Glucose (74-99) mg/dL POC Glucose (mg/dL) 145 H 133 H (75-99) mg/dL Ferritin (10.0-291.0) ng/mL Lactate Dehydrogenase (313-618) U/L C-Reactive Protein (<1.0) mg/dL Total Protein (6.3-8.2) g/dL Albumin (3.5-5.0) g/dL Urine Appearance (Clear) Urine Protein (Negative) Urine Glucose (UA) (Negative) Urine Blood (Negative) Ur Leukocyte Esterase (Negative) Urine RBC (0-5) /hpf Urine WBC (0-5) /hpf Urine WBC Clumps (None) /hpf Ur Squamous Epith Cells (0-4) /hpf Urine Mucus (None) /hpf Crossmatch 10/05/20 10/05/20 10/05/20 Range/Units 04:00 04:00 05:51 RBC (3.80-5.40) m/uL Hgb (11.4-16.0) gm/dL Hct (34.0-46.0) % RDW (11.5-15.5) % Lymphocytes # (1.0-4.8) k/uL D-Dimer 2.70 H (<0.60) mg/L FEU ABG pH (7.35-7.45) ABG pCO2 (35-45) mmHg ABG pO2 (83-108) mmHg ABG HCO3 (21-25) mmol/L ABG Total CO2 (19-24) mmol/L ABG O2 Saturation (94-97) % BUN 27 H (7-17) mg/dL Creatinine 3.79 H (0.52-1.04) mg/dL Glucose 116 H (74-99) mg/dL POC Glucose (mg/dL) 117 H (75-99) mg/dL Ferritin 1770.4 H (10.0-291.0) ng/mL Lactate Dehydrogenase 932 H (313-618) U/L C-Reactive Protein 21.4 H (<1.0) mg/dL Total Protein 5.0 L (6.3-8.2) g/dL Albumin 2.3 L (3.5-5.0) g/dL Urine Appearance (Clear) Urine Protein (Negative) Urine Glucose (UA) (Negative) Urine Blood (Negative) Ur Leukocyte Esterase (Negative) Urine RBC (0-5) /hpf Urine WBC (0-5) /hpf Urine WBC Clumps (None) /hpf Ur Squamous Epith Cells (0-4) /hpf Urine Mucus (None) /hpf Crossmatch 10/05/20 10/05/20 Range/Units 07:05 12:22 RBC (3.80-5.40) m/uL Hgb (11.4-16.0) gm/dL Hct (34.0-46.0) % RDW (11.5-15.5) % Lymphocytes # (1.0-4.8) k/uL D-Dimer (<0.60) mg/L FEU ABG pH 7.32 L (7.35-7.45) ABG pCO2 50 H (35-45) mmHg ABG pO2 56 L* (83-108) mmHg ABG HCO3 26 H (21-25) mmol/L ABG Total CO2 27 H (19-24) mmol/L ABG O2 Saturation 84.3 L (94-97) % BUN (7-17) mg/dL Creatinine (0.52-1.04) mg/dL Glucose (74-99) mg/dL POC Glucose (mg/dL) 169 H (75-99) mg/dL Ferritin (10.0-291.0) ng/mL Lactate Dehydrogenase (313-618) U/L C-Reactive Protein (<1.0) mg/dL Total Protein (6.3-8.2) g/dL Albumin (3.5-5.0) g/dL Urine Appearance (Clear) Urine Protein (Negative) Urine Glucose (UA) (Negative) Urine Blood (Negative) Ur Leukocyte Esterase (Negative) Urine RBC (0-5) /hpf Urine WBC (0-5) /hpf Urine WBC Clumps (None) /hpf Ur Squamous Epith Cells (0-4) /hpf Urine Mucus (None) /hpf Crossmatch Microbiology - Last 24 Hours (Table) 10/05/20 04:00 Catheter Tip Culture - Preliminary Catheter Tip 10/02/20 23:10 Gram Stain - Final Sputum Sputum Culture - Final 10/04/20 15:35 Urine Culture - Preliminary Urine,Voided 10/02/20 22:55 Blood Culture - Preliminary Blood No Growth after 48 hours 10/04/20 15:35 Gram Stain - Preliminary Sputum Sputum Culture - Preliminary 09/28/20 09:45 Blood Culture - Final Blood No Growth after 144 hours 09/28/20 09:45 Blood Culture - Final Blood No Growth after 144 hours
[2020-10-05] MEDS: SODIUM CHLORIDE 0.9% 500 ML 500 ML IV SCH (13:28)
[2020-10-05] MEDS: ARTIFICIAL TEARS-HYPROMELLOSE DROPS 15 ML BTL BOTH EYES SCH ×4 (14:08→23:59)
--- NOTE | 2020-10-05 14:32 | P.PN ---
Subjective Progress Note Date: 10/05/20 Principal diagnosis: Acute hypoxic respiratory failure secondary to COVID-19 pneumonia and ARDS secondary to COVID-19 pneumonia This is a 55-year-old -[place] female with history of type 2 diabetes, admitted today through the emergency room with a few days' history of increased shortness of breath, cough, fever, chest x-ray in the ER showed bilateral infiltrates consistent with COVID-19 pneumonia in the patient had positive PCR for COVID-19 infection. Patient had significantly abnormal labs on admission, she had an extremely low bicarb, extremely low pH, and marginal oxygenation at best. Patient was admitted to the regular medical floor, and I happened to be rounding on that same floor were and I was notified about this patient having worsening respiratory distress. Evaluated the patient, clearly the patient has DKA and she clearly has acute hypoxic respiratory failure secondary to COVID-19 pneumonia. As soon as I laid eyes on the patient, recommended immediate transfer to the ICU. Patient was placed on BiPAP however she did not tolerate BiPAP well, and when I went back to evaluate the patient in the ICU, she was basically deteriorating, and she was using her accessory muscles, patient was in severe respiratory distress. Hence I recommended immediate intubation and placement on mechanical ventilation. Chest x-ray continued to show bilateral in filtrates consistent with worsening COVID-19 pneumonia ABG showed a pO2 of 59 pCO2 of 42 pH of 7.05 and this was on the 100% FiO2 20 of PEEP tidal volume of 375 rate of 36. Patient will be given more bicarb and she is already on a bicarb drip. She is receiving insulin and she is also receiving IV fluids in the form of 0.9 normal saline. Sugars were 384. Inflammatory markers were added to be extremely high, LDH 8, and C-reactive protein of 8.7. D-dimer was borderline elevated at 1.84. On 09/12/2020 patient seen in follow-up in the intensive care unit, yesterday she was emergently transferred to the intensive care and intubated and placed on mechanical ventilator. She remains intubated, sedated on mechanical ventilator, currently on assist control mode of ventilation with a rate 36, tidal vital 375, FiO2 100% and PEEP of 20. This might blood gas reveals pO2 of 62, pCO2 40, pH of 7.35 this was done on FiO2 of 80%, her peak airway pressure is 35, in her plateau pressure is around 32. she is sedated on Diprivan and 60 mics per kilo per minute, 0.9 normal saline at 100 ML per hour, insulin drip is at 4 units per hour, and she has 5% dextrose with 3 units of bicarbonate at 100 ML per hour. Today's labs have been reviewed, showing white blood cell count 10.3, hemoglobin of 14.4, d-dimer has increased to 14.31, and her Lovenox was adjusted and increased to 50 mg twice daily, sodium is 137, potassium is 3.7, chloride is 112, CO2 is up to 21, BUN of 16 creatinine is 1.57, LDH is 2618, CRP is 18.2. Pro-Calcitonin level came back elevated at 3.53, suggesting possibility of bacterial infection She received a liter bolus yesterday after intubation. We will give the patient additional fluid boluses today. Sputum culture has been sent and is pending, blood cultures have been sent. Patient has been placed in prone position at 8:00 last night, and her oxygenation seems to be improved and she satting 97% on 100% FiO2 and subsequently FiO2 was dropped down to 80%, and PEEP is down to 18. She remains in prone positioning, tolerating it well, she is having low-grade fevers, she is in sinus mechanism with tachycardic on the monitor, not requiring any vasopressor support right now, will start tube feedings today when the patient is placed back over in the supine position On 09/13/2020 patient seen in follow-up in intensive care unit, she remains proned, and at the time of our evaluation patient has already been prone for close to 16 hours and is about to be turned back on her spine. She tolerates prone position quite well, she remains intubated, paralyzed and sedated on mechanical ventilator, current vent settings are assist-control mode of ventilation with a rate of 36, tidal volume 375, FiO2 of 70% and PEEP of 18, this point his blood gases show pO2 of 82, pCO2 of 39, and pH of 7.19. She's currently on D5 W with 3 A of bicarbonate at 75 per hour, Diprivan is a 60 mics per kilo per minute, index is at 2 mics per kilo per minute, and insulin drip is at 6 units per hour, patient has not started tube feedings yet. She is in sinus mechanism, hemodynamically stable, not requiring any vasopressor support. Today's chest x-ray has been reviewed showing bilateral lung infiltrates that appear to be stable. Today's labs have been reviewed showing white blood cell count of 11.1, hemoglobin 13.2, d-dimer is pending, yesterday his d-dimer was 14.3, patient's Lovenox dose was increased to 50 mg every 24 hours. Her renal function continued to worsen, and her creatinine is up to 3.4 on today's labs, BUN is 24, were bicarb concentration is only 13 on today's labs, sodium is 137, potassium is 4.0. AST is up to 77, ALT and alk phos are within normal limits, yesterday set him inflammatory markers with showing up trending LDH at 2618, and CRP of 18.2. Her pro-calcitonin level was increased yesterday at 3.53 and we added empiric antibiotics in the form of Zosyn. Sputum culture has been sent and has shown no growth. Overnight patient remained oliguric, yesterday we gave her additional fluids, however did not improve her renal function and her kidney function continued to get worse. Nephrology consultation has been requested, she has only been producing urine in the order of 5-10 ML per hour, renal ultrasound has been obtained showing no evidence of hydronephrosis bilaterally. On 09/14/2020 patient seen in follow-up in intensive care unit, she remains intubated, sedated and paralyzed, currently on assist control mode of ventilation with a rate of 36, tidal vital 375, FiO2 of 60% and PEEP of 18. This morning's blood gas was reviewed showing pO2 of 60, pCO2 of 43, and pH of 7.32. This was done on FiO2 of 70%, her peak airway pressure is 40, plateau pressures 26. She is currently on D5 with 3 A of bicarbonate at 100 ML per hour , insulin drip is at 7 units per hour, fentanyl drip is a 0.5 mics per kilo per hour, Diprivan and is at 50 mics per kilo per minute, and index is at 2 mics per kilo per minute. She is tolerating tube feedings of vital high-protein at 27 with a goal 27 standard water flushes. Today's chest x-ray has not been completed yet, because the patient has been in prone position for last 16 hours. Patient tolerates prone in quite well, and her oxygenation improves when she is in prone position. However when she is turned over in the supine position to complete chest x-rays and ADL's, patient's O2 sat drops down to low 80s and her FiO2 requirement increases at that time. Today's labs have been reviewed, and there has been further worsening of her renal function, and patient has made almost no urine overnight. Her BUN is 33, and creatinine is 4.87, nephrology is following, her renal ultrasound showed no evidence of hydronephrosis. Her urinalysis showed possibility of urinary tract infection, and patient has been started on cefepime. Urine culture is pending at this time, blood and sputum cultures have been negative. No fevers overnight, she's not requiring any vasopressor support. On 09/15/2020 patient seen in follow-up in intensive care unit, she remains intubated, sedated and paralyzed on assist-control mode of ventilation with a rate of 36, tidal vital 375, FiO2 100% and PEEP of 18, this morning's blood gas reviewed showing pO2 of 58, pCO2 of 45, and pH is 7.35, this was done on FiO2 of 100%. Her peak airway pressures 44, plateau pressures 38, she is on 0.9 normal saline at 50 ML per hour, Diprivan is a 40 mics per kilo per minute, Nimbex drip is a 2 mics per kilo per minute, and fentanyl drip at 0.5 mics per kilo per hour, she is tolerating tube feedings with vital high-protein is 27 with a goal of 27 standard water flushes. She is in sinus mechanism with a rate of 73, she is hemodynamically stable and not requiring any vasopressors. Today's chest x- ray shows ARDS, bilateral airspace opacities, no significant pleural effusion and no pneumothorax. Today's labs have been reviewed, white blood cell count is 9.9, hemoglobin is 11.3, sodium is 134, respiratory electrolytes were within normal limits, and there has been further worsening of her renal function with BUN of 34, creatinine is 4.78, her urine output has remained very poor. Last night she had her first hemodialysis session and no fluid was removed, this morning she is having another hemodialysis treatments and the goal is to remove half a liter of fluid. Her sputum, blood and urine cultures remained negative thus far, patient's pro-calcitonin level came back significantly elevated at 23.5 suggesting evidence of bacterial infection. Patient remains on cefepime for antibiotic coverage, she also remains on Decadron milligrams twice daily, and Lovenox is 50 mg every 24 hours. The patient is seen today 09/16/2020 in follow-up in the intensive care unit. She remains intubated on the mechanical ventilator. Current settings assist- control at a rate of 36, tidal volume 3 or 75, FiO2 100% and a PEEP of 18. Morning blood gases reveal a pO2 of 61, pCO2 49, pH 7.32. Peak pressures of 48, plateau pressure 43. Chest x-ray continues to show evidence of ARDS, pulmonary edema, diffuse pneumonia. She was not proned last night. The plan is to receive hemodialysis again today. Ultrasound of the chest did not reveal any significant fluid for thoracentesis. Sedated on propofol at 50 mcg/kg/m, fentanyl at 0.5 mcg/kg per hour, Nimbex at 3 mcg/kg/m. Insulin drip at 4 units per hour. She is being nourished with vital HPI at 36 ML's per hour. 0.9 normal saline at 60 ML's per hour. Blood, sputum and urine cultures reveal no growth. White count 11.2. Hemoglobin 11.0. Sodium 134. Potassium 3.4. Creatinine 4.44. Glucose 164. She remains in sinus rhythm. She is continued on Symbicort, albuterol. Antibiotics in the form of cefepime. Remains on Decadron, Lovenox, vitamin supplements. Reevaluated today on 09/17/2020, remains in the ICU, intubated and mechanically ventilated. Patient is on assist control rate of 36 tidal volume 350 FiO2 80% and will cut it down to 70% PEEP is at 20. ABG showed a pO2 of 102 pCO2 of 40 pH of 7.37 and this was on a 90% FiO2 now her FiO2 is down to 70%. Patient remains on hemodialysis, and she is receiving hemodialysis daily. She is on Nimbex at 30 mcg/kg/m, he is also on fentanyl at 0.5 mg/kg/h insulin at 6 units per hour propofol at 50 mcg/kg/m patient has been in prone position almost at least 16 hours per day. Remains on enteral feeding and would've may consider TPN in addition to her enteral feeding if not meeting her total caloric requirements. Patient remains on cefepime. Decadron and Lovenox. Chest x-ray continues to show significant bilateral interstitial infiltrates. WBC count is 10.3 hemoglobin is 10.4, basic metabolic profile showed low potassium of 3.1 being addressed by nephrology BUN is 33 creatinine 4.29. LDH is coming down a bit 1912 C-reactive protein is coming down to 1.3. Patient was reevaluated today on 10/03/2020, remains in the ICU, intubated and mechanically ventilated. She is on assist control rate of 28 tidal volume 400 FiO2 60% PEEP is at 10 I went ahead and increased the PEEP to 12, FiO2 cut down to 55% ABG showed a pO2 of 67 pCO2 of 38 pH of 7.41. Patient remains on propofol at 45 mcg/kg/m, fentanyl at 0.7 mcg/kg/h, she is on enteral feeding using vital AF. She is up to goal. Patient remains on hemodialysis 3 days a week, she had hemodialysis yesterday and 3.5 L were taken off. Patient has multiple lines including dialysis catheter, PICC line, and arterial line. Patient is arousable, however she gets extremely agitated, and starts gagging and desaturating. Hence not ready for any weaning, and I kept her on the ventilator settings as noted earlier. Ration is not making any urine, she is completely dialysis dependent. Fecal management system remains in place. Venkatesh gregorio is not requiring any pressors. Chest x-ray continues to show diffuse bilateral interstitial infiltrates consistent with pneumonia or possibly underlying pulmonary edema/fluid overload from her renal failure. She had a T- max of 101, presently her hemoglobin is 7.4, platelets are 160, d-dimer is 4.05. 31 creatinine 3.8. LDH is 1016 C-reactive protein is 13.6. Overall prognostic picture does not look very promising. Urine cultures and blood cultures and urine cultures have been relatively nondiagnostic Patient was reevaluated today on 10/04/2020, remains in the ICU, intubated and mechanically ventilated. Patient is undergoing hemodialysis during my evaluation. Last night I had to increase her FiO2 and she is now on 65% FiO2, tidal volume is 400 assist control rate 28, and PEEP is 14. Chest x-ray continues to show bilateral interstitial infiltrates/edema. Hoping that, but will clear after hemodialysis, and hopefully we can cut down her FiO2 back again to 50% if possible. ABG on 60% was marginal with a pO2 of 55 pCO2 of 38 pH of 7.38. Patient remains on propofol at 50 fentanyl 20.5 mcg/kg/m, IV fluid to KVO. Goal today is to remove 4 L of fluid by hemodialysis/ultrafiltration. In spite of being on relatively good dose of propofol and fentanyl, patient is awake, follows simple instructions. Patient has a low-grade temp of 100.3. She had a T-max of 101 yesterday. Hemoglobin is low today, and she will receive 1 units of packed RBCs for hemoglobin of 6.8. Basic metabolic profile is relatively normal. PH is 859 and C-reactive protein is 14.4. Patient remains on the COVID-19 cocktail. Remains on Symbicort, Decadron 4 mg IV push daily, Lovenox 30 mg subcu daily, she is also on insulin as per protocol, and she is on Protonix, sodium bicarb 650 mg by mouth 3 times a day, today, the patient is not requiring any pressors. Patient was reevaluated today on 11/01/2020, remains in the ICU, intubated, mechanically ventilated, patient is doing worse today compared to the last few days, her chest x-ray is worsening, her O2 requirement is rising and she is back on the percent FiO2, I have also increased her PEEP to 16, assist control rate was increased to 52, FiO2 is on the percent. ABG earlier today on 70% FiO2 showed a pO2 of 56 pCO2 of 50 pH of 7.32. She was on assist control rate of 28 tidal volume of 400 FiO2 70% and PEEP of 14. Patient had to be placed on a higher dose of propofol which was increased to 70 fentanyl is at 2 mcg/kg/m, patient will be placed on Nimbex as I'm having difficulty oxygenating the patient in spite of high FiO2. She is scheduled to undergo hemodialysis again today, she had 4 L off yesterday. Remains on tube feeds using vital AF at 30 MLS per hour. Patient is tachycardic rate is 129, blood pressure is marginal 86/45, hence may recommend adding norepinephrine. The overall picture clearly showing deterioration in this patient's clinical status, and I have a feeling that this patient will continue to do poorly and she is now maximized on treatment. Again her chest x-ray is showing significant worsening of her infiltrates. Objective - Vital Signs Vital signs: Vital Signs Temp 100.5 F H 10/05/20 14:06 Pulse 122 H 10/05/20 14:06 Resp 20 10/05/20 14:06 BP 109/59 10/05/20 14:06 Pulse Ox 93 L 10/05/20 14:00 Intake & Output 10/04/20 10/05/20 10/05/20 18:59 06:59 18:59 Intake Total 2558.639 4638.92 1187.316 Output Total 4020 0 1200 Balance -2414.947 1323.92 -12.684 Weight 123.7 kg 121.8 kg Intake: IV 276 135 89 0.9 Normal Saline @ KVO 240 120 80 0.9 Normal Saline 36 15 9 Pressure Bag Intake, IV Titration 509.053 753.92 378.316 Amount Cisatracurium 200 mg In 6.334 Sodium Chloride 0.9% 180 ml @ 1 MCG/KG/MIN 7.308 mls/hr IV .Q24H [facility] Rx#: [id number] Norepinephrine 8 mg In 21.982 Sodium Chloride 0.9% 250 ml @ 0.05 MCG/KG/MIN 11. 61 mls/hr IV .[id number] [facility] Rx#:[id number] fentaNYL (PF) 2,500 mcg 209.053 250 250 In Sodium Chloride 0.9% 200 ml @ Per Protocol IV .Q0M [facility] Rx#:[id number] propofoL 1,000 mg In 300.0 503.92 100 Empty Bag 1 bag @ Per Protocol IV .Q0M [facility] Rx#: [id number] Tube Feeding 360 330 240 Blood Product 310 Rc As-1 Unit 310 [id number] Hemodialysis 300 Other 150 105 180 Output: Urine 20 0 Hemodialysis 4000 1200 Other: # Voids 0 ABP, PAP, CO, CI - Last Documented Arterial Blood Pressure 116/61 - Exam GENERAL EXAM: Revealed a 35-year-old female, obese, on mechanical ventilation, awake, slightly agitated on propofol and fentanyl. However went ahead and place the patient on Nimbex. HEAD: Normocephalic/atraumatic. Tracheostomy is intact. Minimal air leak from the cough of the tracheostomy EENT: PERRLA, EOMI, nonicteric, no neck masses, no JVD, CHEST: No chest wall deformity. Symmetrical expansion. LUNGS: Crackles bilaterally persist. No rhonchi and no wheezes. CVS: Distant S1 and S2, no S3 gallop, no murmur. ABDOMEN: Obese soft nontender no megaly no rebound no guarding. PEG tube is intact. EXTREMITIES: No clubbing, 2+ bipedal edema, no cyanosis, 2+ pulses and upper and lower extremities. Psychiatric: Sedated, and I went ahead and started Nimbex on this patient. Could not assess her psychiatric status SKIN: No rashes CENTRAL NERVOUS SYSTEM: Restless and agitated before Nimbex was given. She was already on propofol and fentanyl. - Labs CBC & Chem 7: 10/05/20 04:00 10/05/20 04:00 Labs: Abnormal Lab Results - Last 24 Hours (Table) 10/04/20 10/04/20 10/04/20 Range/Units 09:20 15:35 17:10 RBC 2.62 L (3.80-5.40) m/uL Hgb 7.6 L (11.4-16.0) gm/dL Hct 22.6 L (34.0-46.0) % RDW 15.8 H (11.5-15.5) % Lymphocytes # (1.0-4.8) k/uL D-Dimer (<0.60) mg/L FEU ABG pH (7.35-7.45) ABG pCO2 (35-45) mmHg ABG pO2 (83-108) mmHg ABG HCO3 (21-25) mmol/L ABG Total CO2 (19-24) mmol/L ABG O2 Saturation (94-97) % BUN (7-17) mg/dL Creatinine (0.52-1.04) mg/dL Glucose (74-99) mg/dL POC Glucose (mg/dL) (75-99) mg/dL Ferritin (10.0-291.0) ng/mL Lactate Dehydrogenase (313-618) U/L C-Reactive Protein (<1.0) mg/dL Total Protein (6.3-8.2) g/dL Albumin (3.5-5.0) g/dL Urine Appearance Turbid H (Clear) Urine Protein 3+ H (Negative) Urine Glucose (UA) Trace H (Negative) Urine Blood Small H (Negative) Ur Leukocyte Esterase Large H (Negative) Urine RBC 31 H (0-5) /hpf Urine WBC >182 H (0-5) /hpf Urine WBC Clumps Many H (None) /hpf Ur Squamous Epith Cells 7 H (0-4) /hpf Urine Mucus Rare H (None) /hpf Crossmatch See Detail 10/04/20 10/05/20 10/05/20 Range/Units 18:04 01:28 04:00 RBC 2.72 L (3.80-5.40) m/uL Hgb 7.6 L (11.4-16.0) gm/dL Hct 23.9 L (34.0-46.0) % RDW 16.4 H (11.5-15.5) % Lymphocytes # 0.8 L (1.0-4.8) k/uL D-Dimer (<0.60) mg/L FEU ABG pH (7.35-7.45) ABG pCO2 (35-45) mmHg ABG pO2 (83-108) mmHg ABG HCO3 (21-25) mmol/L ABG Total CO2 (19-24) mmol/L ABG O2 Saturation (94-97) % BUN (7-17) mg/dL Creatinine (0.52-1.04) mg/dL Glucose (74-99) mg/dL POC Glucose (mg/dL) 145 H 133 H (75-99) mg/dL Ferritin (10.0-291.0) ng/mL Lactate Dehydrogenase (313-618) U/L C-Reactive Protein (<1.0) mg/dL Total Protein (6.3-8.2) g/dL Albumin (3.5-5.0) g/dL Urine Appearance (Clear) Urine Protein (Negative) Urine Glucose (UA) (Negative) Urine Blood (Negative) Ur Leukocyte Esterase (Negative) Urine RBC (0-5) /hpf Urine WBC (0-5) /hpf Urine WBC Clumps (None) /hpf Ur Squamous Epith Cells (0-4) /hpf Urine Mucus (None) /hpf Crossmatch 10/05/20 10/05/20 10/05/20 Range/Units 04:00 04:00 05:51 RBC (3.80-5.40) m/uL Hgb (11.4-16.0) gm/dL Hct (34.0-46.0) % RDW (11.5-15.5) % Lymphocytes # (1.0-4.8) k/uL D-Dimer 2.70 H (<0.60) mg/L FEU ABG pH (7.35-7.45) ABG pCO2 (35-45) mmHg ABG pO2 (83-108) mmHg ABG HCO3 (21-25) mmol/L ABG Total CO2 (19-24) mmol/L ABG O2 Saturation (94-97) % BUN 27 H (7-17) mg/dL Creatinine 3.79 H (0.52-1.04) mg/dL Glucose 116 H (74-99) mg/dL POC Glucose (mg/dL) 117 H (75-99) mg/dL Ferritin 1770.4 H (10.0-291.0) ng/mL Lactate Dehydrogenase 932 H (313-618) U/L C-Reactive Protein 21.4 H (<1.0) mg/dL Total Protein 5.0 L (6.3-8.2) g/dL Albumin 2.3 L (3.5-5.0) g/dL Urine Appearance (Clear) Urine Protein (Negative) Urine Glucose (UA) (Negative) Urine Blood (Negative) Ur Leukocyte Esterase (Negative) Urine RBC (0-5) /hpf Urine WBC (0-5) /hpf Urine WBC Clumps (None) /hpf Ur Squamous Epith Cells (0-4) /hpf Urine Mucus (None) /hpf Crossmatch 10/05/20 10/05/20 Range/Units 07:05 12:22 RBC (3.80-5.40) m/uL Hgb (11.4-16.0) gm/dL Hct (34.0-46.0) % RDW (11.5-15.5) % Lymphocytes # (1.0-4.8) k/uL D-Dimer (<0.60) mg/L FEU ABG pH 7.32 L (7.35-7.45) ABG pCO2 50 H (35-45) mmHg ABG pO2 56 L* (83-108) mmHg ABG HCO3 26 H (21-25) mmol/L ABG Total CO2 27 H (19-24) mmol/L ABG O2 Saturation 84.3 L (94-97) % BUN (7-17) mg/dL Creatinine (0.52-1.04) mg/dL Glucose (74-99) mg/dL POC Glucose (mg/dL) 169 H (75-99) mg/dL Ferritin (10.0-291.0) ng/mL Lactate Dehydrogenase (313-618) U/L C-Reactive Protein (<1.0) mg/dL Total Protein (6.3-8.2) g/dL Albumin (3.5-5.0) g/dL Urine Appearance (Clear) Urine Protein (Negative) Urine Glucose (UA) (Negative) Urine Blood (Negative) Ur Leukocyte Esterase (Negative) Urine RBC (0-5) /hpf Urine WBC (0-5) /hpf Urine WBC Clumps (None) /hpf Ur Squamous Epith Cells (0-4) /hpf Urine Mucus (None) /hpf Crossmatch Microbiology - Last 24 Hours (Table) 10/05/20 04:00 Catheter Tip Culture - Preliminary Catheter Tip 10/02/20 23:10 Gram Stain - Final Sputum Sputum Culture - Final 10/04/20 15:35 Urine Culture - Preliminary Urine,Voided 10/02/20 22:55 Blood Culture - Preliminary Blood No Growth after 48 hours 10/04/20 15:35 Gram Stain - Preliminary Sputum Sputum Culture - Preliminary 09/28/20 09:45 Blood Culture - Final Blood No Growth after 144 hours 09/28/20 09:45 Blood Culture - Final Blood No Growth after 144 hours Assessment and Plan Assessment: Impression: Acute hypoxic respiratory failure secondary to COVID-19 pneumonia and ARDS secondary to COVID-19 pneumonia, patient was transferred to the ICU on 09/11, intubated on 09/11, received REM on 09/11, received T OCI on 09/11, tracheostomy and PEG tube placement on 09/18 remains on mechanical ventilation with volume control plus mode as noted earlier Acute kidney injury with complete shutdown of urine output/anuria, requiring hemodialysis. Remains on hemodialysis 3 times per week Acute diabetic ketoacidosis and COVID-19 pneumonia on her initial presentation. Sepsis secondary to COVID-19 pneumonia Type 2 diabetes poorly controlled. Hemoglobin A1c of 13.6. Elevated inflammatory markers secondary to acute COVID-19 pneumonia History of hypertension. Generalized anxiety disorder. Morbid obesity BMI of 54.2. Status post tracheostomy and PEG tube placement on 09/18. Recommendation: Patient is doing much worse today, I believe she is taking a downhill course, and her clinical status seems to be deteriorated. Hence we will Continue ventilatory support, PEEP was increased to 16, and FiO2 increased on the percent. Assist-control rate increased to 32. Continue nutritional support/enteral feeding. Continue Lovenox. Continue Decadron. Continue hemodialysis, discussed with nephrology to be more aggressive with hem odialysis. Definitely no room for any weaning at this point. Continue insulin and close monitoring of her sugars. Continue COVID-19 cocktail. Continue Lovenox 30 mg subcu daily Continue Decadron 4 mg IV push every 24 hours. Continue insulin and maintain adequate control of her sugars. Much worse today compared to the last 24 hours. May consider even placing the patient in prone positions again.. Critical care time is over 30 minutes Time with Patient: Greater than 30
--- NOTE | 2020-10-05 15:13 | PN ---
PROGRESS NOTE Patient is seen for followup for acute kidney injury. She is currently hemodialysis dependent. No significant urine output. This morning patient's blood pressure had dropped. She is being started on Levophed. The patient's FiO2 has also been increased to 100%. She did have a fever. Heart rate is 130-138 per minute. Patient remains with edema upper and lower extremities. She is tolerating tube feeds. LABS: Reviewed. Sodium 137, potassium 4.5, BUN 27, creatinine 3.79. ASSESSMENT: 1. Acute kidney injury, hemodialysis dependent. Patient will be dialyzed again today, mostly for fluid removal to help with the oxygenation. 2. Acute hypoxic respiratory failure secondary to COVID pneumonia initially and now mostly ARDS. 3. Volume overload. 4. Anemia with no active bleeding noted status post packed RBCs transfusion. PLAN: Repeat hemodialysis today and then again in a.m. Today, patient's blood pressure is low. We will try for ultrafiltration at least 1 to 1-1.5 L as tolerated. Overall prognosis is guarded. MMODL / IJN: [id number] /
[2020-10-05 18:03] LABS: Glucose,Whole Blood 164 mg/dL (75-99)
--- NOTE | 2020-10-05 23:33 | PCN ---
PROCEDURE NOTE PROCEDURE PERFORMED: Placement of the left radial arterial line. PREOPERATIVE DIAGNOSIS: Acute hypoxic respiratory failure secondary to Covid 19 pneumonia. POSTOPERATIVE DIAGNOSIS: Acute hypoxic respiratory failure secondary to Covid 19 pneumonia. ANESTHESIA: Used none deployed. PROCEDURE: The patient was placed in the supine position, the left wrist was prepared in a sterile fashion and drapes were applied. The left radial artery was palpated, cannulated, and a guidewire was placed. A Cook catheter was inserted over the guidewire, and the guidewire was removed. Good blood flow and waveform noted, no evidence of any complications, line was secured using 3.0 silk sutures. A sterile dressing was applied. MMODL / IJN: [id number] /
[2020-10-05 23:54] LABS: Glucose,Whole Blood 152 mg/dL (75-99)
[2020-10-06] MEDS: INSULIN ASPART (NovoLOG) 100 UNIT/ML VIAL SQ SCH ×8 (00:04→17:49)
[2020-10-06] MEDS: fentaNYL (PF) 2,500 MCG in SODIUM CHLORIDE 0.9% 200 ML IV SCH ×4 (01:41→23:05)
[2020-10-06] MEDS: CISATRACURIUM 200 MG in SODIUM CHLORIDE 0.9% 180 ML IV SCH ×3 (04:05→18:15)
[2020-10-06 05:06] LABS: Glucose,Whole Blood 135 mg/dL (75-99)
[2020-10-06] MEDS: ARTIFICIAL TEARS-HYPROMELLOSE DROPS 15 ML BTL BOTH EYES SCH ×6 (05:15→23:08)
[2020-10-06] MEDS: NOREPINEPHRINE 8 MG in SODIUM CHLORIDE 0.9% 250 ML IV SCH (05:16)
[2020-10-06 05:33] LABS: Albumin 2.4 g/dL (3.5-5.0); Potassium 4.4 mmol/L (3.5-5.1); Total Bilirubin 0.4 mg/dL (0.2-1.3); Total Protein 5.1 g/dL (6.3-8.2)
[2020-10-06 05:38] LABS: Anisocytosis Slight; Basophils % (A) 1 %; Eosinophils # (A) 0.9 k/uL (0-0.7); Eosinophils % (A) 18 %; HCT 36.9 % (34.0-46.0); Hypochromasia Moderate; Lymphocytes # (A) 0.6 k/uL (1.0-4.8); Lymphocytes % (A) 13 %; MCH 27.6 pg (25.0-35.0); MCHC 30.8 g/dL (31.0-37.0); MCV 89.5 fL (80.0-100.0); Monocytes # (A) 0.2 k/uL (0-1.0); Monocytes % (A) 5 %; Neutrophils # (A) 3.1 k/uL (1.3-7.7); Neutrophils % (A) 62 %; Platelet Count 212 k/uL (150-450); Poikilocytosis Slight; RBC 4.12 m/uL (3.80-5.40); RDW 16.1 % (11.5-15.5); WBC 5.1 k/uL (3.8-10.6)
[2020-10-06 05:48] LABS: HGB 11.4 gm/dL (11.4-16.0)
[2020-10-06 06:09] LABS: ABG Base Excess -2.6 mmol/L; ABG HCO3 24 mmol/L (21-25); ABG Oxygen Saturation 90.7 % (94-97); ABG PCO2 52 mmHg (35-45); ABG PH 7.28 (7.35-7.45); ABG PO2 68 mmHg (83-108); ABG TCO2 26 mmol/L (19-24)
[2020-10-06 06:11] LABS: Allen Test Performed? no
[2020-10-06] MEDS: SEVELAMER 800 MG TAB PO SCH ×3 (06:55→17:07)
[2020-10-06] MEDS: INSULIN DETEMIR (LEVEMIR) 100 UNIT/ML SYR SQ SCH ×2 (06:55→21:03)
[2020-10-06] MEDS: SODIUM CHLORIDE 0.9% 500 ML 500 ML IV SCH (07:00)
[2020-10-06] MEDS: SYMBICORT 160-4.5 MCG INHALER INHALATION SCH ×2 (08:09→20:56)
[2020-10-06] MEDS: ALBUTEROL HFA INHALER INHALATION SCH ×4 (08:09→20:56)
[2020-10-06] MEDS: ENOXAPARIN 30 MG/0.3 ML SYRINGE SQ SCH (09:09)
[2020-10-06] MEDS: ZINC SULFATE 220 MG CAP PO SCH (09:09)
[2020-10-06] MEDS: SODIUM BICARBONATE TAB 650 MG TAB PO SCH ×3 (09:09→21:03)
[2020-10-06] MEDS: PANTOPRAZOLE 40 MG/10 ML VIAL IVP SCH (09:09)
[2020-10-06] MEDS: CHOLECALCIFEROL 25 MCG (1000 IU) TABLET PO SCH (09:09)
[2020-10-06] MEDS: DEXAMETHASONE SOD PHOSPHATE 4 MG/ML 1 ML VIAL IV SCH (09:09)
[2020-10-06] MEDS: ASCORBIC ACID 500 MG TAB PO SCH ×2 (09:10→21:03)
[2020-10-06 12:05] LABS: Glucose,Whole Blood 147 mg/dL (75-99)
--- NOTE | 2020-10-06 12:17 | P.PN ---
Subjective Progress Note Date: 10/06/20 Principal diagnosis: Acute hypoxic respiratory failure secondary to COVID-19 pneumonia and ARDS secondary to COVID-19 pneumonia This is a 55-year-old -[place] female with history of type 2 diabetes, admitted today through the emergency room with a few days' history of increased shortness of breath, cough, fever, chest x-ray in the ER showed bilateral infiltrates consistent with COVID-19 pneumonia in the patient had positive PCR for COVID-19 infection. Patient had significantly abnormal labs on admission, she had an extremely low bicarb, extremely low pH, and marginal oxygenation at best. Patient was admitted to the regular medical floor, and I happened to be rounding on that same floor were and I was notified about this patient having worsening respiratory distress. Evaluated the patient, clearly the patient has DKA and she clearly has acute hypoxic respiratory failure secondary to COVID-19 pneumonia. As soon as I laid eyes on the patient, recommended immediate transfer to the ICU. Patient was placed on BiPAP however she did not tolerate BiPAP well, and when I went back to evaluate the patient in the ICU, she was basically deteriorating, and she was using her accessory muscles, patient was in severe respiratory distress. Hence I recommended immediate intubation and placement on mechanical ventilation. Chest x-ray continued to show bilateral in filtrates consistent with worsening COVID-19 pneumonia ABG showed a pO2 of 59 pCO2 of 42 pH of 7.05 and this was on the 100% FiO2 20 of PEEP tidal volume of 375 rate of 36. Patient will be given more bicarb and she is already on a bicarb drip. She is receiving insulin and she is also receiving IV fluids in the form of 0.9 normal saline. Sugars were 384. Inflammatory markers were added to be extremely high, LDH 8, and C-reactive protein of 8.7. D-dimer was borderline elevated at 1.84. On 09/12/2020 patient seen in follow-up in the intensive care unit, yesterday she was emergently transferred to the intensive care and intubated and placed on mechanical ventilator. She remains intubated, sedated on mechanical ventilator, currently on assist control mode of ventilation with a rate 36, tidal vital 375, FiO2 100% and PEEP of 20. This might blood gas reveals pO2 of 62, pCO2 40, pH of 7.35 this was done on FiO2 of 80%, her peak airway pressure is 35, in her plateau pressure is around 32. she is sedated on Diprivan and 60 mics per kilo per minute, 0.9 normal saline at 100 ML per hour, insulin drip is at 4 units per hour, and she has 5% dextrose with 3 units of bicarbonate at 100 ML per hour. Today's labs have been reviewed, showing white blood cell count 10.3, hemoglobin of 14.4, d-dimer has increased to 14.31, and her Lovenox was adjusted and increased to 50 mg twice daily, sodium is 137, potassium is 3.7, chloride is 112, CO2 is up to 21, BUN of 16 creatinine is 1.57, LDH is 2618, CRP is 18.2. Pro-Calcitonin level came back elevated at 3.53, suggesting possibility of bacterial infection She received a liter bolus yesterday after intubation. We will give the patient additional fluid boluses today. Sputum culture has been sent and is pending, blood cultures have been sent. Patient has been placed in prone position at 8:00 last night, and her oxygenation seems to be improved and she satting 97% on 100% FiO2 and subsequently FiO2 was dropped down to 80%, and PEEP is down to 18. She remains in prone positioning, tolerating it well, she is having low-grade fevers, she is in sinus mechanism with tachycardic on the monitor, not requiring any vasopressor support right now, will start tube feedings today when the patient is placed back over in the supine position On 09/13/2020 patient seen in follow-up in intensive care unit, she remains proned, and at the time of our evaluation patient has already been prone for close to 16 hours and is about to be turned back on her spine. She tolerates prone position quite well, she remains intubated, paralyzed and sedated on mechanical ventilator, current vent settings are assist-control mode of ventilation with a rate of 36, tidal volume 375, FiO2 of 70% and PEEP of 18, this point his blood gases show pO2 of 82, pCO2 of 39, and pH of 7.19. She's currently on D5 W with 3 A of bicarbonate at 75 per hour, Diprivan is a 60 mics per kilo per minute, index is at 2 mics per kilo per minute, and insulin drip is at 6 units per hour, patient has not started tube feedings yet. She is in sinus mechanism, hemodynamically stable, not requiring any vasopressor support. Today's chest x-ray has been reviewed showing bilateral lung infiltrates that appear to be stable. Today's labs have been reviewed showing white blood cell count of 11.1, hemoglobin 13.2, d-dimer is pending, yesterday his d-dimer was 14.3, patient's Lovenox dose was increased to 50 mg every 24 hours. Her renal function continued to worsen, and her creatinine is up to 3.4 on today's labs, BUN is 24, were bicarb concentration is only 13 on today's labs, sodium is 137, potassium is 4.0. AST is up to 77, ALT and alk phos are within normal limits, yesterday set him inflammatory markers with showing up trending LDH at 2618, and CRP of 18.2. Her pro-calcitonin level was increased yesterday at 3.53 and we added empiric antibiotics in the form of Zosyn. Sputum culture has been sent and has shown no growth. Overnight patient remained oliguric, yesterday we gave her additional fluids, however did not improve her renal function and her kidney function continued to get worse. Nephrology consultation has been requested, she has only been producing urine in the order of 5-10 ML per hour, renal ultrasound has been obtained showing no evidence of hydronephrosis bilaterally. On 09/14/2020 patient seen in follow-up in intensive care unit, she remains intubated, sedated and paralyzed, currently on assist control mode of ventilation with a rate of 36, tidal vital 375, FiO2 of 60% and PEEP of 18. This morning's blood gas was reviewed showing pO2 of 60, pCO2 of 43, and pH of 7.32. This was done on FiO2 of 70%, her peak airway pressure is 40, plateau pressures 26. She is currently on D5 with 3 A of bicarbonate at 100 ML per hour , insulin drip is at 7 units per hour, fentanyl drip is a 0.5 mics per kilo per hour, Diprivan and is at 50 mics per kilo per minute, and index is at 2 mics per kilo per minute. She is tolerating tube feedings of vital high-protein at 27 with a goal 27 standard water flushes. Today's chest x-ray has not been completed yet, because the patient has been in prone position for last 16 hours. Patient tolerates prone in quite well, and her oxygenation improves when she is in prone position. However when she is turned over in the supine position to complete chest x-rays and ADL's, patient's O2 sat drops down to low 80s and her FiO2 requirement increases at that time. Today's labs have been reviewed, and there has been further worsening of her renal function, and patient has made almost no urine overnight. Her BUN is 33, and creatinine is 4.87, nephrology is following, her renal ultrasound showed no evidence of hydronephrosis. Her urinalysis showed possibility of urinary tract infection, and patient has been started on cefepime. Urine culture is pending at this time, blood and sputum cultures have been negative. No fevers overnight, she's not requiring any vasopressor support. On 09/15/2020 patient seen in follow-up in intensive care unit, she remains intubated, sedated and paralyzed on assist-control mode of ventilation with a rate of 36, tidal vital 375, FiO2 100% and PEEP of 18, this morning's blood gas reviewed showing pO2 of 58, pCO2 of 45, and pH is 7.35, this was done on FiO2 of 100%. Her peak airway pressures 44, plateau pressures 38, she is on 0.9 normal saline at 50 ML per hour, Diprivan is a 40 mics per kilo per minute, Nimbex drip is a 2 mics per kilo per minute, and fentanyl drip at 0.5 mics per kilo per hour, she is tolerating tube feedings with vital high-protein is 27 with a goal of 27 standard water flushes. She is in sinus mechanism with a rate of 73, she is hemodynamically stable and not requiring any vasopressors. Today's chest x- ray shows ARDS, bilateral airspace opacities, no significant pleural effusion and no pneumothorax. Today's labs have been reviewed, white blood cell count is 9.9, hemoglobin is 11.3, sodium is 134, respiratory electrolytes were within normal limits, and there has been further worsening of her renal function with BUN of 34, creatinine is 4.78, her urine output has remained very poor. Last night she had her first hemodialysis session and no fluid was removed, this morning she is having another hemodialysis treatments and the goal is to remove half a liter of fluid. Her sputum, blood and urine cultures remained negative thus far, patient's pro-calcitonin level came back significantly elevated at 23.5 suggesting evidence of bacterial infection. Patient remains on cefepime for antibiotic coverage, she also remains on Decadron milligrams twice daily, and Lovenox is 50 mg every 24 hours. The patient is seen today 09/16/2020 in follow-up in the intensive care unit. She remains intubated on the mechanical ventilator. Current settings assist- control at a rate of 36, tidal volume 3 or 75, FiO2 100% and a PEEP of 18. Morning blood gases reveal a pO2 of 61, pCO2 49, pH 7.32. Peak pressures of 48, plateau pressure 43. Chest x-ray continues to show evidence of ARDS, pulmonary edema, diffuse pneumonia. She was not proned last night. The plan is to receive hemodialysis again today. Ultrasound of the chest did not reveal any significant fluid for thoracentesis. Sedated on propofol at 50 mcg/kg/m, fentanyl at 0.5 mcg/kg per hour, Nimbex at 3 mcg/kg/m. Insulin drip at 4 units per hour. She is being nourished with vital HPI at 36 ML's per hour. 0.9 normal saline at 60 ML's per hour. Blood, sputum and urine cultures reveal no growth. White count 11.2. Hemoglobin 11.0. Sodium 134. Potassium 3.4. Creatinine 4.44. Glucose 164. She remains in sinus rhythm. She is continued on Symbicort, albuterol. Antibiotics in the form of cefepime. Remains on Decadron, Lovenox, vitamin supplements. Reevaluated today on 09/17/2020, remains in the ICU, intubated and mechanically ventilated. Patient is on assist control rate of 36 tidal volume 350 FiO2 80% and will cut it down to 70% PEEP is at 20. ABG showed a pO2 of 102 pCO2 of 40 pH of 7.37 and this was on a 90% FiO2 now her FiO2 is down to 70%. Patient remains on hemodialysis, and she is receiving hemodialysis daily. She is on Nimbex at 30 mcg/kg/m, he is also on fentanyl at 0.5 mg/kg/h insulin at 6 units per hour propofol at 50 mcg/kg/m patient has been in prone position almost at least 16 hours per day. Remains on enteral feeding and would've may consider TPN in addition to her enteral feeding if not meeting her total caloric requirements. Patient remains on cefepime. Decadron and Lovenox. Chest x-ray continues to show significant bilateral interstitial infiltrates. WBC count is 10.3 hemoglobin is 10.4, basic metabolic profile showed low potassium of 3.1 being addressed by nephrology BUN is 33 creatinine 4.29. LDH is coming down a bit 1912 C-reactive protein is coming down to 1.3. Patient was reevaluated today on 10/03/2020, remains in the ICU, intubated and mechanically ventilated. She is on assist control rate of 28 tidal volume 400 FiO2 60% PEEP is at 10 I went ahead and increased the PEEP to 12, FiO2 cut down to 55% ABG showed a pO2 of 67 pCO2 of 38 pH of 7.41. Patient remains on propofol at 45 mcg/kg/m, fentanyl at 0.7 mcg/kg/h, she is on enteral feeding using vital AF. She is up to goal. Patient remains on hemodialysis 3 days a week, she had hemodialysis yesterday and 3.5 L were taken off. Patient has multiple lines including dialysis catheter, PICC line, and arterial line. Patient is arousable, however she gets extremely agitated, and starts gagging and desaturating. Hence not ready for any weaning, and I kept her on the ventilator settings as noted earlier. Ration is not making any urine, she is completely dialysis dependent. Fecal management system remains in place. Venkatesh gregorio is not requiring any pressors. Chest x-ray continues to show diffuse bilateral interstitial infiltrates consistent with pneumonia or possibly underlying pulmonary edema/fluid overload from her renal failure. She had a T- max of 101, presently her hemoglobin is 7.4, platelets are 160, d-dimer is 4.05. 31 creatinine 3.8. LDH is 1016 C-reactive protein is 13.6. Overall prognostic picture does not look very promising. Urine cultures and blood cultures and urine cultures have been relatively nondiagnostic Patient was reevaluated today on 10/04/2020, remains in the ICU, intubated and mechanically ventilated. Patient is undergoing hemodialysis during my evaluation. Last night I had to increase her FiO2 and she is now on 65% FiO2, tidal volume is 400 assist control rate 28, and PEEP is 14. Chest x-ray continues to show bilateral interstitial infiltrates/edema. Hoping that, but will clear after hemodialysis, and hopefully we can cut down her FiO2 back again to 50% if possible. ABG on 60% was marginal with a pO2 of 55 pCO2 of 38 pH of 7.38. Patient remains on propofol at 50 fentanyl 20.5 mcg/kg/m, IV fluid to KVO. Goal today is to remove 4 L of fluid by hemodialysis/ultrafiltration. In spite of being on relatively good dose of propofol and fentanyl, patient is awake, follows simple instructions. Patient has a low-grade temp of 100.3. She had a T-max of 101 yesterday. Hemoglobin is low today, and she will receive 1 units of packed RBCs for hemoglobin of 6.8. Basic metabolic profile is relatively normal. PH is 859 and C-reactive protein is 14.4. Patient remains on the COVID-19 cocktail. Remains on Symbicort, Decadron 4 mg IV push daily, Lovenox 30 mg subcu daily, she is also on insulin as per protocol, and she is on Protonix, sodium bicarb 650 mg by mouth 3 times a day, today, the patient is not requiring any pressors. Patient was reevaluated today on 10/05/2020, remains in the ICU, intubated, mechanically ventilated, patient is doing worse today compared to the last few days, her chest x-ray is worsening, her O2 requirement is rising and she is back on the percent FiO2, I have also increased her PEEP to 16, assist control rate was increased to 52, FiO2 is on the percent. ABG earlier today on 70% FiO2 showed a pO2 of 56 pCO2 of 50 pH of 7.32. She was on assist control rate of 28 tidal volume of 400 FiO2 70% and PEEP of 14. Patient had to be placed on a higher dose of propofol which was increased to 70 fentanyl is at 2 mcg/kg/m, patient will be placed on Nimbex as I'm having difficulty oxygenating the patient in spite of high FiO2. She is scheduled to undergo hemodialysis again today, she had 4 L off yesterday. Remains on tube feeds using vital AF at 30 MLS per hour. Patient is tachycardic rate is 129, blood pressure is marginal 86/45, hence may recommend adding norepinephrine. The overall picture clearly showing deterioration in this patient's clinical status, and I have a feeling that this patient will continue to do poorly and she is now maximized on treatment. Again her chest x-ray is showing significant worsening of her infiltrates. Patient was reevaluated today on 10/06/2020, remains in the ICU, intubated and mechanically ventilated, and she is presently in prone position since last night for the next few hours until dialysis which is supposed to start sometime in the next couple of hours. Patient remains on assist control mode of mechanical ventilation, it is volume control with volume of 350 rate of 3 to FiO2 65%. 14. Her ABG showed a pO2 of 68 pCO2 of 52 pH of 7.28. Patient remains on propofol at 75 fentanyl at 3 mcg/kg/h she is also on norepinephrine at 0.02 and Nimbex at 3 mcg/kg/m. Patient is scheduled to have hemodialysis today. Chest x-ray continues to show evidence of bilateral interstitial infiltrates. Patient is on enteral feeding in the form of Nepro at 30/30. Patient has been proned now for the last 17 hours. Electrolytes are normal however her BUN is 30 creatinine 2.93. Blood sugar is 147 WBC count is 5.1 hemoglobin is 11.4. Patient remains on the COVID-19 cocktail. Remains on albuterol, Symbicort, Decadron 4 mg IV push daily, Lovenox 30 mg subcu daily. Insulin protocol. Her tonic 40 mg IV push daily. Off antibiotics. Objective - Vital Signs Vital signs: Vital Signs Temp 97.8 F 10/06/20 08:00 Pulse 131 H 10/06/20 11:00 Resp 32 H 10/06/20 11:00 BP 109/59 10/05/20 14:06 Pulse Ox 90 L 10/06/20 11:00 Intake & Output 10/05/20 10/06/20 10/06/20 18:59 06:59 18:59 Intake Total 2034.982 1813.345 565 Output Total 1200 0 Balance 933.954 2361.345 565 Weight 125.3 kg Intake: IV 141 156 65 0.9 Normal Saline @ KVO 120 120 50 0.9 Normal Saline 21 36 15 Pressure Bag Intake, IV Titration 438.166 9943.345 340 Amount Cisatracurium 200 mg In 114.736 198.412 Sodium Chloride 0.9% 180 ml @ 1 MCG/KG/MIN 7.308 mls/hr IV .Q24H [facility] Rx#: [id number] Norepinephrine 8 mg In 98.608 113.933 Sodium Chloride 0.9% 250 ml @ 0.05 MCG/KG/MIN 11. 61 mls/hr IV .[id number] [facility] Rx#:[id number] fentaNYL (PF) 2,500 mcg 480.738 250 250 In Sodium Chloride 0.9% 200 ml @ Per Protocol IV .Q0M [facility] Rx#:[id number] propofoL 1,000 mg In 299.9 600 90 Empty Bag 1 bag @ Per Protocol IV .Q0M [facility] Rx#: [id number] Tube Feeding 360 360 130 Hemodialysis 300 Other 240 135 30 Output: Urine 0 0 Hemodialysis 1200 ABP, PAP, CO, CI - Last Documented Arterial Blood Pressure 102/83 - Exam GENERAL EXAM: Revealed a 35-year-old female, obese, on mechanical ventilation, sedated, paralyzed, in prone position. HEAD: Normocephalic/atraumatic. Tracheostomy is intact. EENT: PERRLA, EOMI, nonicteric, no neck masses, no JVD, CHEST: No chest wall deformity. Symmetrical expansion. LUNGS: Minimal fine Crackles bilaterally persist. No rhonchi and no wheezes. CVS: Distant S1 and S2, no S3 gallop, no murmur. ABDOMEN: Obese soft nontender no megaly no rebound no guarding. PEG tube is intact. EXTREMITIES: No clubbing, 2+ bipedal edema, no cyanosis, 2+ pulses and upper and lower extremities. Psychiatric: Sedated, and paralyzed, could not assess SKIN: No rashes CENTRAL NERVOUS SYSTEM: Sedated and paralyzed, could not assess - Labs CBC & Chem 7: 10/06/20 05:00 10/06/20 05:00 Labs: Abnormal Lab Results - Last 24 Hours (Table) 10/05/20 10/05/20 10/05/20 Range/Units 12:22 18:02 23:53 MCHC (31.0-37.0) g/dL RDW (11.5-15.5) % Lymphocytes # (1.0-4.8) k/uL Eosinophils # (0-0.7) k/uL ABG pH (7.35-7.45) ABG pCO2 (35-45) mmHg ABG pO2 (83-108) mmHg ABG Total CO2 (19-24) mmol/L ABG O2 Saturation (94-97) % BUN (7-17) mg/dL Creatinine (0.52-1.04) mg/dL Glucose (74-99) mg/dL POC Glucose (mg/dL) 169 H 164 H 152 H (75-99) mg/dL Total Protein (6.3-8.2) g/dL Albumin (3.5-5.0) g/dL 10/06/20 10/06/20 10/06/20 Range/Units 05:00 05:00 05:04 MCHC 30.8 L (31.0-37.0) g/dL RDW 16.1 H (11.5-15.5) % Lymphocytes # 0.6 L (1.0-4.8) k/uL Eosinophils # 0.9 H (0-0.7) k/uL ABG pH (7.35-7.45) ABG pCO2 (35-45) mmHg ABG pO2 (83-108) mmHg ABG Total CO2 (19-24) mmol/L ABG O2 Saturation (94-97) % BUN 30 H (7-17) mg/dL Creatinine 2.93 H (0.52-1.04) mg/dL Glucose 113 H (74-99) mg/dL POC Glucose (mg/dL) 135 H (75-99) mg/dL Total Protein 5.1 L (6.3-8.2) g/dL Albumin 2.4 L (3.5-5.0) g/dL 10/06/20 10/06/20 Range/Units 06:05 12:02 MCHC (31.0-37.0) g/dL RDW (11.5-15.5) % Lymphocytes # (1.0-4.8) k/uL Eosinophils # (0-0.7) k/uL ABG pH 7.28 L (7.35-7.45) ABG pCO2 52 H (35-45) mmHg ABG pO2 68 L (83-108) mmHg ABG Total CO2 26 H (19-24) mmol/L ABG O2 Saturation 90.7 L (94-97) % BUN (7-17) mg/dL Creatinine (0.52-1.04) mg/dL Glucose (74-99) mg/dL POC Glucose (mg/dL) 147 H (75-99) mg/dL Total Protein (6.3-8.2) g/dL Albumin (3.5-5.0) g/dL Microbiology - Last 24 Hours (Table) 10/04/20 15:35 Gram Stain - Final Sputum Sputum Culture - Final 10/05/20 04:00 Catheter Tip Culture - Preliminary Catheter Tip 10/04/20 15:35 Urine Culture - Final Urine,Voided 10/02/20 22:55 Blood Culture - Preliminary Blood No Growth after 72 hours 10/04/20 12:30 Blood Culture - Preliminary Blood No Growth after 24 hours 10/02/20 23:10 Gram Stain - Final Sputum Sputum Culture - Final Assessment and Plan Assessment: Impression: Acute hypoxic respiratory failure secondary to COVID-19 pneumonia and ARDS secondary to COVID-19 pneumonia, patient was transferred to the ICU on 09/11, intubated on 09/11, received REM on 09/11, received T OCI on 09/11, tracheostomy and PEG tube placement on 09/18 remains on mechanical ventilation with volume control plus mode as noted earlier Acute kidney injury with complete shutdown of urine output/anuria, requiring hemodialysis. Remains on hemodialysis 3 times per week Acute diabetic ketoacidosis and COVID-19 pneumonia on her initial presentation. Sepsis secondary to COVID-19 pneumonia Type 2 diabetes poorly controlled. Hemoglobin A1c of 13.6. Elevated inflammatory markers secondary to acute COVID-19 pneumonia History of hypertension. Generalized anxiety disorder. Morbid obesity BMI of 54.2. Status post tracheostomy and PEG tube placement on 09/18. Recommendation: Continue ventilatory support and intermittent proning positions. Continue volume control plus mode of mechanical ventilation with tidal volume 350 FiO2 65% PEEP of 14 Continue nutritional support/enteral feeding. Continue Lovenox. Continue Decadron. 4 mg IV push every 24 hours Continue hemodialysis Continue insulin and close monitoring of her sugars. Continue COVID-19 cocktail. Off antibiotics for now. Patient remains quite ill, prognosis remains extremely poor and guarded. Critical care time is over 30 minutes Time with Patient: Greater than 30
--- NOTE | 2020-10-06 12:24 | P.PN ---
Subjective Progress Note Date: 10/06/20 HISTORY OF PRESENT ILLNESS 35-year-old female patient of Dr. Arroyo with past medical history of type 2 diabetes comes in with acute shortness of breath associated with high light s ugars. Patient on admission was found to have a fever of 101.5 pulse rate 125 respiratory rate 20. Blood pressure 132/106. On chest x-ray obtained in the ER suggestive of bilateral infiltrates concerning for call with pneumonia. COVID PCR was positive. On admissions patient had an ABG with a pH of 7.14 pCO2 of 20, pO2 of 59, bicarb of 7. Patient's blood sugar on admission was 424 on assessment today patient's blood work patient had a sodium 135 potassium 5.4 chloride 123 bicarb less than 5 and creatinine 0.73. D-dimer was elevated on admission patient 9 28 patient given 1 L of IV fluids followed by normal saline running at 200 mL/h. Patient was positive for acetone on admission. She will anion gap closed and was switched to D5NS. Insulin drip was continued during the night and was switched to patient's home medication this morning. One dose of remdesiver was ordered. Apparently around noon, A- team was called on the patient secondary to hypoxia patient's oxygen saturation dropped to the 70s and 80s on 100% nonrebreather. Patient was switched to BiPAP on 18/12 and is doing better o FiO2 of 80%. ABG was obtained and ph was 7. 14 pCO2 of 28 bicarb of 7 pO2 of 17. Patient noted to have uncompensated metabolic acidosis with compensated respiratory alkalosis. Stat dose of 1 amp bicarb was given and followed by sodium bicarbonate drip. Insulin drip restarted. Patient's initiated on dexamethasone 6 mg IV twice a day. Potassium phosphate ordered as phosphorus is low. Patient's repeat blood gases suggest a pH of 7.25, CO2 32 pO2 of 72 bicarb 14. I will not normal saline at 100 mL/h as patient's anion gap has increased. Patient given 1 dose of 2 mg of morphine with improvement in respiratory rate. One dose of Ativan 0.5 mg was given. Xanax 0.25 twice a day along with Ativan 0.5 IV every 6 hours ordered for the patient. Vitals were evaluated patient pulse 129 [id number]. She was moved to the ICU. Precedex drip was initiated. Lopressor was initiated at 25 twice a day. Metoprolol tartrate 5 mg IV every 6 hours. Systolic blood pressure more than 160. Started chest x-ray was obtained and suggest stable bilateral consolidation suggestive of COVID-19 pneumonia. 09/12 patient is seen in the ICU is currently mechanically ventilated and sedated on vent settings of respiratory rate 36, tidal volume 375 FiO2 80% PEEP of 18.. Vital signs reviewed patient had a temp of 100.4 pulse 150 respiratory rate 36 oxygen saturation 95% on 80% on fio2 .'s labs are reviewed which patient had a d-dimer 1.84 that is increased to 14.3. Arterial Blood gas suggest ph 7.35, CO2 40, po2 62, . Her BMP suggest a sodium 135 potassium 3.7 chloride 112 bicarb 21 creatinine 1.57 for calcitonin is 3.5 CRP is increased from 8.78.2 LDH is increased to 2614. Patient remains on Pneumovax, propofol drip. Lovenox increased to 50 subcu twice a day. Patient received 2 L of IV fluids. Continue IV fluids at 100 mL/h. Bicarb drip discontinued patient initiated on Zosyn 3.375 every 8 hours. Continue insulin drip at 4 units per hour. Patient is currently in prone positioning 09/13: Patient evaluated in the ICU remains on Ventilation continues to be sedated, in prone position. Vent settings are respiratory rate 36, tidal vital 375, FiO2 70% PEEP of 18. ABG shows pO2 of 82, PCO2 of 39, pH is 7.19. Latest labs show WBC 11.1, hemoglobin 13.2, d-dimer still pending, but yesterday was up to 14.3. Creatinine up to 3.4, BUN 24 sodium 137, potassium 4.0. Patient's urine output has been low, nephrology on consult. Bicarb drip increased to 100 miles an hour, receiving another liter of normal saline, she did have a ultrasound that showed unremarkable bilateral kidneys. Repeat chest x-ray showed bilateral lung infiltrates that are stable. Anion gap has closed, will start Lantus 10 units at at bedtime Novolog every 6 hours. 09/14: Patient is seen in the ICU, still currently mechanically ventilated and sedated. She continues in the prone position. Her oxygen quickly drops if she is not in prone. Patient's kidney function has worsened. Laboratory values show creatinine of 4.87, BUN 33, LDH 2191, C-reactive protein 2.7. ABG shows pH 7.32, pO2 of 60, pCO2 43. Patient is making almost no urine overnight. Nephrology is following patient continues on cefepime for urinary tract infection, culture is still pending. Vascular has been consulted for placement of temporary hemodialysis catheter for plans for dialysis. 09/15: Patient evaluated in the ICU, continues to be mechanically ventilated and sedated on assist control ventilation rate of 36, tidal volume 375, FiO2 100% and PEEP of 18. ABG today shows pO2 58, pCO2 of 45, and pH 7.35. She continues on tube feedings. Yesterday patient underwent ultrasound-guided right internal jugular non-tunneled hemodialysis catheter placement. Patient underwent hemodialysis treatment last night and plans have another hemodialysis treatment today. She continues to make almost no urine. She continues on cefepime for antibiotic coverage, and continues on Decadron and Lovenox. 09/16: Patient seen on follow-up remains in the ICU mechanically ventilated and sedated. She continues on assist control rate of 36, tidal volume 375, FiO2 100% and PEEP of 20. PEEP had to be increased due to patient had to be in supine position for dialysis, will go back to prone position once dialysis is complete. ABG shows pH 7.32, pCO2 49, PaO2 61. Laboratory values showed WBC 11.2, hemoglobin 11, sodium 134, creatinine 4.44, BUN 38. Urine culture shows no growth, blood cultures show no growth to date. Repeat chest x-ray shows bilateral pleural effusions, correlate for ARDS, pulmonary edema, diffuse pneumonia, findings are stable from last exam. Patient does not require any pressors, blood pressure 133/57, heart rate 78. 5/16: Patient was evaluated in the ICU today for follow-up. She continues to be intubated and on mechanical ventilation. Current vent settings are tidal volume 375, FiO2 100% and PEEP of 20. ABG shows pH 7.37, pCO2 40, pO2 102. She continues with intermittent prone positioning. Patient continues to have almost no urine output, maintained on dialysis. Patient received dialysis yesterday without complication. Laboratory values revealed WBC 10.3, hemoglobin 10.4, sodium 132, potassium 3.1, BUN 33, creatinine 4.29, LDH 1913, C-reactive protein 1.3. Urine and sputum cultures are negative, blood cultures show no growth to date. Consult placed to dietary to start TPN[ ] 09/18: She remains in the intensive care unit intubated and on mechanical ventilation with tidal volume 375, FiO2 60 and PEEP of 20. Patient is being prone to daily at approximately 16 hours per day. Pulmonary medicine has added in Dr. Zhang to do PEG tube and trach today. Patient is not on vasopressors. Repeat blood work reveals WBC 12.6, hemoglobin 9.8, platelet count 212. Sodium 133, potassium 3.2, chloride 102, CO2 21, BUN 35 and creatinine 4.12. Blood sugar 126. Patient underwent hemodialysis yesterday with removal of 2 L and is scheduled again today with goal of 2-3 L and is scheduled again tomorrow. 09/19: She is scheduled for hemodialysis today and is off fentanyl temporarily. Patient is status post trach and PEG tube yesterday. And she remains on mechanical ventilation. Pulse ox 93-95%. She has been afebrile, heart rate 64, respiratory rate 36, blood pressure 115/50. Fentanyl is off to improve blood pressure for hemodialysis which is scheduled for today. Contacted vascular surgery about permanent hemodialysis catheter. Repeat blood work reveals WBC 14.3, hemoglobin 9.6, platelet count 200. D-dimer 6.48. LDH 1686. C-reactive protein 1.1. BUN 34 creatinine 3.81. Sodium 130, potassium 3.5, chloride 101, CO2 18. Blood sugars running between 101 198. Plan is to wean off Pneumovax today. Patient remains on insulin drip. Repeat chest x-ray reveals bilateral multifocal confluent opacities consistent with COVID-19. Some improved aeratio n periphery of the left lung and worsening opacities throughout the right lung. 09/20: She remains in the intensive care unit on mechanical ventilation. She has been afebrile, heart rate 65, respiratory rate 37, blood pressure 121/70, pulse ox 91-99%. Repeat blood work reveals WBC 14.5, hemoglobin 9.1, platelet count 216. D-dimer 6.13. Sodium 133, potassium 3.1, chloride 102, CO2 18, BUN 35 and creatinine 4.27. Blood sugars running between 128 and 143. LDH 1717. C- reactive protein 1.7. Patient remains on insulin drip which will be transitioned to NovoLog scale every 6 hours. Patient is scheduled for permanent hemodialysis catheter placement today with vascular surgery. Repeat chest x-ray reveals stable diffuse bilateral interstitial and airspace disease. Possible small right effusion. His work is following for transfer to [facility] facility. Do not anticipate discharge until next week. 09/21: Patient is undergoing hemodialysis. She remains on mechanical ventilation with tidal volume 375, FiO2 down to 45 and PEEP was decreased to 15. Patient is continued on propofol, fentanyl drips. She is on tube feedings at goal. Patient was taken off insulin drip yesterday and on scale only but blood sugars are running in the 200s, Levemir scheduled at bedtime will be added. Other blood work reveals WBC 13.3, hemoglobin 8.7, platelet count 192. Sodium 137, potassium 3.6, chloride 107, CO2 18, BUN 34 and creatinine 4.21. Repeat chest x-ray is stable. 09/22: She remains in the intensive care on mechanical ventilation with tidal volume 375, FiO2 of 50 and PEEP of 10. Pulse ox is running 96%. She is afebrile, heart rate in the 50s, respiratory rate 36, blood pressure 100/64. Repeat blood work reveals WBC 16.5, hemoglobin 8.9, platelet count 213. Sodium 134, potassium 3.7, chloride 103, CO2 21, BUN 34 and creatinine 3.89. Blood sugars running in the 200s to 324. Levemir increased to 16 units at bedtime and continue NovoLog scale every 6 hours. Patient is on tube feedings at goal. She has a Haley catheter in with a scant amount of dark/brown urine. Fecal management system is in place. Repeat chest x-ray reveals diffuse bilateral airspace infiltrates persist unchanged. Patient is scheduled for hemodialysis tomorrow morning on Friday. 09/23: Patient remains on mechanical ventilation with tidal volume 3.75, FiO2 50 and PEEP of 10. monitor tech sinus rhythm. She has no urine output. Fecal management system is in place. She is undergoing dialysis at this time with plan for removal of 2-1/2 L. She has been afebrile, heart rate in the 50s, respiratory rate 36, blood pressure 108/76 and pulse ox 89%. WBC 13.6, hemoglobin 9.1, platelet count 194. Sodium 136, potassium 3.0 and was replaced, chloride 106, CO2 21, BUN 49 creatinine 5.31. Blood sugars are running between 182 and this morning 194. Patient was still in the 200s and 300s. Levemir last evening was increased to 16 units. Patient remains on propofol and fentanyl drips. Lovenox was increased to 60 mg twice daily. 09/24: PEEP was increased today to 20, tidal volume is at 375 and FiO2 of 50%. Patient has been afebrile. She has been started on levo fed. Repeat chest x- ray reveals bilateral multifocal confluent opacities consistent with Covid 19 or ARDS redemonstrated. Nephrology will plan dialysis for tomorrow for 3 L. Patient remains on propofol fentanyl and Nimbex. WBC 12.5, hemoglobin 9.8, platelet count 161. D-dimer 13.3. Sodium 132, potassium 3.4, chloride 102, CO2 20, BUN 48 and creatinine 4.67. Blood sugars extremely elevated to 96-409. LDH 2217. 09/25: Patient remains in the intensive care unit on mechanical ventilation with tidal volume 375, FiO2 50 and PEEP of 20. Patient is afebrile, heart rate 61, respiratory rate 36, blood pressure 102/56, pulse ox 97%. Repeat blood work reveals WBC 9.3, hemoglobin 8.5 and platelet count 171. Sodium 130, potassium 3.7, chloride 100, CO2 20, BUN 61 creatinine 5.65. Blood sugars have been elev ated up to 455. Levemir increased to 20 units twice daily, NovoLog 5 units every 6 hours and continue NovoLog scale. Patient is scheduled for hemodialysis today. Repeat chest x-ray reveals bilateral multifocal and confluent opacities. Decadron and Lovenox dosing change by pulmonary. Patient is off norepinephrine. 09/26: Patient remains in the intensive care unit on mechanical ventilation with tidal volume 375, FiO2 50 and PEEP of 15. She has been afebrile, heart rate 91, blood pressure 114/68, pulse ox 99%. monitor tech sinus rhythm. 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 Sodium 134, potassium 3.6, chloride 102, CO2 22, BUN 41 creatinine 4.21. Patient has improved blood sugars this morning running 150s and 160s. Diabetic medications were adjusted yesterday. Patient is awake and alert and interacting. Yesterday, patient had PICC line inserted by interventional radiology. Repeat chest x-ray reveals diffuse airspace infiltrates in both lung ann appear to progress slightly in the interval. 09/27: Patient remains in intensive care unit on mechanical ventilation with improvement of settings with tidal volume 375, FiO2 decreased to 40 and PEEP decreased to 10. Patient is on hemodialysis every other day and plan to remove 3 L today. Patient is more awake and alert. She is slow to respond but is able to follow simple commands. Blood sugars are running between 84 and 123. Repeat blood work reveals WBC 7.1, hemoglobin 8.1, platelets 152. Sodium 135, potassium 3.6, chloride 103, CO2 21, BUN 53 and creatinine 5.88. Repeat chest x-ray revealed cardiomegaly and pulmonary edema. Patient is on tube feedings:. Patient is not require vasopressors and is off sedation. Fecal management system remains in place for brown liquid stool. C. difficile was negative. 09/28: Patient remains on mechanical ventilation with tidal volume 375, FiO2 increased to 80 and PEEP increased to 18. Patient had a rough night was very anxious, no pain. Xanax 0.25 mg 3 times daily was added. There is concern for pulmonary embolism for which patient was started on heparin drip, she is unable to undergo CAT scan. Venous Doppler bilateral lower extremities was nondiagnostic due to extensive edema in obese patient but minimal imaging of the popliteal veins does show flow. Repeat echocardiogram has been ordered. Cefepime has also been ordered at 1 g IV piggyback every 24 hours as well as vancomycin, pharmacy dosing. Patient is back on fentanyl drip, propofol drip and norepinephrine. Blood sugars are elevated and insulin Levemir will be i ncreased to 25 mg twice daily. Ferrlecit infusion has been ordered by nephrology for 4 days. Patient is undergoing hemodialysis today.temperature max 100.2, heart rate 134, respiratory rate 34, blood pressure 120/65, pulse ox 94%. monitor tech is sinus tachycardia. Repeat blood work reveals WBC 16.9, hemoglobin 9.7, platelet count 216. D-dimer 8.81. Sodium 134, potassium 3.8, chloride 99, CO2 25, BUN 43 and creatinine 5.36. Blood sugars in the 200s. AST 40. 09/29 Patient had declined more last 48 hours require more sedation, patient is doing hemodialysis, respiratory failure is quite bit worse this time. Patient was inquired the pain is well back on fentanyl drip. Her vent set up with PEEP is limited but higher. No new finding on culture and her chest x-ray continues shows diffuse infiltrate persistent although there is a moderate interval improvement. 09/30 patient's was seen and evaluated. PEEP was reduced to 11 as patient is maintaining good saturation at the current vent settings. 10/01 patient was seen at bedside. She is currently on assist control rate of 28 white tidal volume 350 FiO2 50% and PEEP of 10 which has been reduced by pulmonary as patient name cleaning her oxygen saturation. Arm blood gas was obtained with a pH of 7.35 pCO2 37 pO2 of 63. She remains hemodynamically stable with no need for pressors. Labs were reviewed patient's BUN is 29 crea tinine 3.93 glucose 122 albumin 2.2 sodium 131 chloride 19 hemoglobin is downtrending with a Hb of 7.3 no leukocytosis 7.1. Patient's urine output is minimal at this time. Her rate has increased to 129 and is currently on positive fluid balance even with dialysis. Last dialysis was done yesterday. Continue enteral feeding currently at goal. Antibiotic has been discontinued and continues to remain on DEXA methicillin 4 mg IV daily. 10/02 patient continues to be on trach support with mechanical ventilation. Patient was evaluated by vegetable inspector and was switched to VC control as patient was noted to be double stacking on and off throughout the night. Respiratory rate continue to 28 tidal volume increased to 400 with a PEEP for Dr. Downey. Patient is maintaining oxygen saturation 91% on the current setting. According to the nurse bedside patient saturation drops significantly or she is moved or her sedation is dropped. Patient is currently on propofol drip, fentanyl drip. She did underwent dialysis today and was able to maintain her low pressure without the need of pressors. Labs reviewed today suggest a WBC of 6.7 hemoglobin of 7.0 and d-dimer 3.9 bicarb 17 BUN 38 creatinine 4.8. LDH is 964. Sodium 1:30 likely secondary to volume overload. Urine sodium and urine osmolality ordered. Patient's glucose this morning is 146. Continue to remain on enteral feeding. Urine output is reduced. Fall catheter will be placed today. Continue to remain on dialysis. 10/03: Patient remains on mechanical ventilation and is back on propofol and fentanyl drips. Patient is currently on VC control with tidal volume 400, FiO2 55 and PEEP of 12. Patient still is not making any urine and is dialysis dependent with next treatment planned for tomorrow with removal of 3-3-1/2 L. PEG tube feedings are at goal. Fecal management system remains in place. At the time of evaluation, patient is off levophed. Repeat chest x-ray reveals stable diffuse bilateral airspace disease correlate for ARDS, pulmonary edema or diffuse pneumonia. Temperature max last evening was 101. Temperature currently 99, heart rate 106, respiratory rate 32, blood pressure 101/50, pulse ox 86%. Repeat blood work reveals WBC 6, hemoglobin 7.4, platelet count 160. D-dimer 4.05. Sodium 133, potassium 3.5, chloride 100, CO2 23, BUN 31 creatinine 3.8. Blood sugars are running between 100 and 170. Ferritin 1514. Liver function test normal. LDH 1016, C-reactive protein 13.6. Prognosis remains guarded. 10/04: Patient remains intubated on mechanical ventilation with tidal volume 400, FiO2 65, PEEP of 14. Patient continues to run fevers and repeat blood culture and urine and urine culture ordered for today. Haley catheter has been removed this patient has no significant urine output at about 20 mL per shift. BladderScan is monitored for greater than 300 and the patient is straight cathed. Hemoglobin is 6.8 and she has been ordered 41 unit of packed RBCs today. She is currently on propofol and fentanyl drips. She is scheduled for hemodialysis today. WBC 4.5, hemoglobin 6.8, platelet count 151. D-dimer 3.28. Sodium 132, potassium 4.1, chloride 100, CO2 22, BUN 37 creatinine 4.74. Blood sugars running between 97 and 110. Ferritin 1801. LDH 859. C-reactive protein 14.4. Chest x-ray reveals correlate for pneumonia, edema, ARDS. Prognosis remains guarded. 10/05: Patient remains in intensive care unit currently on mechanical ventilation with tidal volume 400, FiO2 was increased to 100 and PEEP is at 14. She continues to run fevers which have worsened with temperature max 103.1. She has been tachycardic in the 130s, blood pressure is marginal but not on vasopressors. Pulse ox currently 92%. Repeat blood work reveals WBC 5.5, hemoglobin 7.6, platelet count 190. D-dimer 2.7, ferritin 1770, LDH 932, C- reactive protein 21.4. Blood sugars are running between 100 1669. Electrolytes are normal. BUN 27 and creatinine 3.79. Pancultures were done yesterday including a straight cath for urine culture, sputum culture and blood culture. Arterial line was removed as well as midline. She is currently on propofol, fen tanyl and started on Nimbex today. 10/06: Patient remains in the intensive care unit. Today patient in prone position and remains on mechanical ventilation with tidal volume 350, FiO2 65 and PEEP of 14. Her last documented fever was yesterday at 2 PM. Heart rate is in the 120s, respiratory rate 32, pulse ox 88-92%. CBC is unremarkable. Electrolytes are normal. BUN 30 creatinine 2.93. Blood sugars are running between 135 and 164. Cultures from October 04: Blood culture no growth, sputum culture finalized, urine culture finalized. Catheter tip culture is in process. Repeat chest x-ray shows bilateral interstitial infiltrates. Patient is on tube feedings of Nepro at goal of 30 ML's per hour. Patient underwent dialysis yesterday and is scheduled for repeat dialysis today. REVIEW OF SYSTEMS Unable to obtain due to mechanical ventilation. PHYSICAL EXAMINATION Gen: This is is a 35-year-old black female, patient is intubated and on mechanical ventilation, appears to be comfortable. Patient is in prone posit ion. HEENT: Head is atraumatic, normocephalic. NEUROLOGICAL: Patient is sedated. Full physical examination deferred to vegetable inspector due to Covid 19 and intubation. ASSESSMENT AND PLAN 1. Acute hypoxic respiratory failure secondary to Covid 19 pneumonia and possible bacterial pneumonia. Patient was intubated on September 11. She is status post 1 dose of Remdesivir and 1 dose of Tocilizumab. Continue Ventolin inhaler 4 times daily, Symbicort twice daily, Decadron 4 mg IV daily, Lovenox 30 mg subcu daily, supplements. Status post PEG tube and trach. 2. Acute diabetic ketoacidosis secondary to Covid 19 pneumonia, uncontrolled with hyperglycemia. Levemir 25 units twice daily, scheduled NovoLog 5 units every 6 hours and NovoLog scale. 3. Metabolic encephalopathy secondary to Covid 19 and DKA. 4. Sepsis and septic shock secondary to Covid 19 pneumonia with multiorgan failure. Continue as in #1. 5. Acute metabolic acidosis secondary to acute DKA, Covid 19 and acute kidney injury. 6. Diabetes mellitus type 2 uncontrolled with A1c 13.6. Continue as above. 7. Hypophosphatemia status post replacement. 8. Hyperkalemia secondary to DKA, resolved. 9. Sinus tachycardia secondary to sepsis, volume deficiency.Continue Lopressor 25 mg twice daily. 10. Acute kidney injury secondary to ATN secondary to Covid 19 and DKA. Patient continued on hemodialysis. Permanent dialysis catheter placed. 11. Possible acute gram-negative pneumonia versus MRSA pneumonia. Completed course of antibiotics. 12. Hypertension. 13. Morbid obesity with BMI of 53. 14. DVT prophylaxis. Lovenox. 15. GI prophylaxis. Protonix 40 mg IV push daily. CODE STATUS: Full code Prognosis poor. DISCHARGE PLAN [facility] Impression and plan of care have been directed as dictated by the signing physician. Kimberly Boswell nurse practitioner acting as scribe for signing physician. Objective - Vital Signs Vital signs: Vital Signs Temp 98.0 F 10/06/20 04:00 Pulse 112 H 10/06/20 07:00 Resp 32 H 10/06/20 07:00 BP 109/59 10/05/20 14:06 Pulse Ox 93 L 10/06/20 07:00 Intake & Output 10/05/20 10/06/20 10/06/20 18:59 06:59 18:59 Intake Total 2034.982 1813.345 383 Output Total 1200 Balance 723.114 6621.345 383 Weight 125.3 kg Intake: IV 141 156 13 0.9 Normal Saline @ KVO 120 120 10 0.9 Normal Saline 21 36 3 Pressure Bag Intake, IV Titration 978.737 5164.345 340 Amount Cisatracurium 200 mg In 114.736 198.412 Sodium Chloride 0.9% 180 ml @ 1 MCG/KG/MIN 7.308 mls/hr IV .Q24H [facility] Rx#: [id number] Norepinephrine 8 mg In 98.608 113.933 Sodium Chloride 0.9% 250 ml @ 0.05 MCG/KG/MIN 11. 61 mls/hr IV .[id number] [facility] Rx#:[id number] fentaNYL (PF) 2,500 mcg 480.738 250 250 In Sodium Chloride 0.9% 200 ml @ Per Protocol IV .Q0M [facility] Rx#:[id number] propofoL 1,000 mg In 299.9 600 90 Empty Bag 1 bag @ Per Protocol IV .Q0M [facility] Rx#: [id number] Tube Feeding 360 360 30 Hemodialysis 300 Other 240 135 Output: Urine 0 Hemodialysis 1200 ABP, PAP, CO, CI - Last Documented Arterial Blood Pressure 112/59 - Labs CBC & Chem 7: 10/06/20 05:00 10/06/20 05:00 Labs: Abnormal Lab Results - Last 24 Hours (Table) 10/05/20 10/05/20 10/05/20 Range/Units 04:00 12:22 18:02 MCHC (31.0-37.0) g/dL RDW (11.5-15.5) % Lymphocytes # (1.0-4.8) k/uL Eosinophils # (0-0.7) k/uL ABG pH (7.35-7.45) ABG pCO2 (35-45) mmHg ABG pO2 (83-108) mmHg ABG Total CO2 (19-24) mmol/L ABG O2 Saturation (94-97) % BUN (7-17) mg/dL Creatinine (0.52-1.04) mg/dL Glucose (74-99) mg/dL POC Glucose (mg/dL) 169 H 164 H (75-99) mg/dL Ferritin 1770.4 H (10.0-291.0) ng/mL Total Protein (6.3-8.2) g/dL Albumin (3.5-5.0) g/dL 10/05/20 10/06/20 10/06/20 Range/Units 23:53 05:00 05:00 MCHC 30.8 L (31.0-37.0) g/dL RDW 16.1 H (11.5-15.5) % Lymphocytes # 0.6 L (1.0-4.8) k/uL Eosinophils # 0.9 H (0-0.7) k/uL ABG pH (7.35-7.45) ABG pCO2 (35-45) mmHg ABG pO2 (83-108) mmHg ABG Total CO2 (19-24) mmol/L ABG O2 Saturation (94-97) % BUN 30 H (7-17) mg/dL Creatinine 2.93 H (0.52-1.04) mg/dL Glucose 113 H (74-99) mg/dL POC Glucose (mg/dL) 152 H (75-99) mg/dL Ferritin (10.0-291.0) ng/mL Total Protein 5.1 L (6.3-8.2) g/dL Albumin 2.4 L (3.5-5.0) g/dL 10/06/20 10/06/20 Range/Units 05:04 06:05 MCHC (31.0-37.0) g/dL RDW (11.5-15.5) % Lymphocytes # (1.0-4.8) k/uL Eosinophils # (0-0.7) k/uL ABG pH 7.28 L (7.35-7.45) ABG pCO2 52 H (35-45) mmHg ABG pO2 68 L (83-108) mmHg ABG Total CO2 26 H (19-24) mmol/L ABG O2 Saturation 90.7 L (94-97) % BUN (7-17) mg/dL Creatinine (0.52-1.04) mg/dL Glucose (74-99) mg/dL POC Glucose (mg/dL) 135 H (75-99) mg/dL Ferritin (10.0-291.0) ng/mL Total Protein (6.3-8.2) g/dL Albumin (3.5-5.0) g/dL Microbiology - Last 24 Hours (Table) 10/04/20 15:35 Gram Stain - Final Sputum Sputum Culture - Final 10/05/20 04:00 Catheter Tip Culture - Preliminary Catheter Tip 10/04/20 15:35 Urine Culture - Final Urine,Voided 10/02/20 22:55 Blood Culture - Preliminary Blood No Growth after 72 hours 10/04/20 12:30 Blood Culture - Preliminary Blood No Growth after 24 hours 10/02/20 23:10 Gram Stain - Final Sputum Sputum Culture - Final
--- NOTE | 2020-10-06 13:14 | P.PN ---
Subjective Progress Note Date: 10/06/20 CHIEF COMPLAINT: COVID-19 pneumonia HISTORY OF PRESENT ILLNESS: Patient is in the ICU for COVID-19 pneumonia and respiratory failure. She is status post tracheostomy and PEG tube placement with Dr. Hollis. Patient is tolerating tube feedings. Her to feedings are at goal at 30 mL per hour. She is having stools and has fecal management system in place. Patient remains on mechanical ventilation. Patient is currently on propofol, fentanyl, norepinephrine and Nimbex. Patient is scheduled for hemo dialysis again today. She is currently off antibiotics. Patient is in prone position. Her last temp was yesterday afternoon at 100.5. Today she is afebrile. WBC is 5.1 hemoglobin 11.4 Patient seen and examined with Dr. hollis PHYSICAL EXAM: VITAL SIGNS: Reviewed. GENERAL: Well-developed in no acute distress. HEENT: No sclera icterus. Extraocular movements grossly intact. Moist buccal mucosa. Head is atraumatic, normocephalic. Tracheostomy site clean dry and intact. No evidence of bleeding ABDOMEN: Soft. Nondistended. Nontender. PEG tube site clean dry and intact NEUROLOGIC: Sedated ASSESSMENT: 1. Acute hypoxic respiratory failure with prolonged mechanical ventilation due to COVID-19 pneumonia status post tracheostomy placement 2. 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 Signing provider agrees with the documented findings, assessment, and plan of care. Objective - Vital Signs Vital signs: Vital Signs Temp 97.8 F 10/06/20 08:00 Pulse 123 H 10/06/20 12:00 Resp 32 H 10/06/20 12:00 BP 109/59 10/05/20 14:06 Pulse Ox 87 L 10/06/20 12:00 Intake & Output 10/05/20 10/06/20 10/06/20 18:59 06:59 18:59 Intake Total 2034.982 1813.345 901.065 Output Total 1200 0 Balance 723.408 8850.345 901.065 Weight 125.3 kg 125.3 kg Intake: IV 141 156 78 0.9 Normal Saline @ KVO 120 120 60 0.9 Normal Saline 21 36 18 Pressure Bag Intake, IV Titration 326.564 5573.345 623.065 Amount Cisatracurium 200 mg In 114.736 198.412 183.065 Sodium Chloride 0.9% 180 ml @ 1 MCG/KG/MIN 7.308 mls/hr IV .Q24H [facility] Rx#: [id number] Norepinephrine 8 mg In 98.608 113.933 Sodium Chloride 0.9% 250 ml @ 0.05 MCG/KG/MIN 11. 61 mls/hr IV .[id number] [facility] Rx#:[id number] fentaNYL (PF) 2,500 mcg 480.738 250 250 In Sodium Chloride 0.9% 200 ml @ Per Protocol IV .Q0M [facility] Rx#:[id number] propofoL 1,000 mg In 299.9 600 190 Empty Bag 1 bag @ Per Protocol IV .Q0M [facility] Rx#: [id number] Tube Feeding 360 360 140 Hemodialysis 300 Other 240 135 60 Output: Urine 0 0 Hemodialysis 1200 ABP, PAP, CO, CI - Last Documented Arterial Blood Pressure 119/82 - Labs CBC & Chem 7: 10/06/20 05:00 10/06/20 05:00 Labs: Abnormal Lab Results - Last 24 Hours (Table) 10/05/20 10/05/20 10/06/20 Range/Units 18:02 23:53 05:00 MCHC 30.8 L (31.0-37.0) g/dL RDW 16.1 H (11.5-15.5) % Lymphocytes # 0.6 L (1.0-4.8) k/uL Eosinophils # 0.9 H (0-0.7) k/uL ABG pH (7.35-7.45) ABG pCO2 (35-45) mmHg ABG pO2 (83-108) mmHg ABG Total CO2 (19-24) mmol/L ABG O2 Saturation (94-97) % BUN (7-17) mg/dL Creatinine (0.52-1.04) mg/dL Glucose (74-99) mg/dL POC Glucose (mg/dL) 164 H 152 H (75-99) mg/dL Total Protein (6.3-8.2) g/dL Albumin (3.5-5.0) g/dL 10/06/20 10/06/20 10/06/20 Range/Units 05:00 05:04 06:05 MCHC (31.0-37.0) g/dL RDW (11.5-15.5) % Lymphocytes # (1.0-4.8) k/uL Eosinophils # (0-0.7) k/uL ABG pH 7.28 L (7.35-7.45) ABG pCO2 52 H (35-45) mmHg ABG pO2 68 L (83-108) mmHg ABG Total CO2 26 H (19-24) mmol/L ABG O2 Saturation 90.7 L (94-97) % BUN 30 H (7-17) mg/dL Creatinine 2.93 H (0.52-1.04) mg/dL Glucose 113 H (74-99) mg/dL POC Glucose (mg/dL) 135 H (75-99) mg/dL Total Protein 5.1 L (6.3-8.2) g/dL Albumin 2.4 L (3.5-5.0) g/dL 10/06/20 Range/Units 12:02 MCHC (31.0-37.0) g/dL RDW (11.5-15.5) % Lymphocytes # (1.0-4.8) k/uL Eosinophils # (0-0.7) k/uL ABG pH (7.35-7.45) ABG pCO2 (35-45) mmHg ABG pO2 (83-108) mmHg ABG Total CO2 (19-24) mmol/L ABG O2 Saturation (94-97) % BUN (7-17) mg/dL Creatinine (0.52-1.04) mg/dL Glucose (74-99) mg/dL POC Glucose (mg/dL) 147 H (75-99) mg/dL Total Protein (6.3-8.2) g/dL Albumin (3.5-5.0) g/dL Microbiology - Last 24 Hours (Table) 10/04/20 15:35 Gram Stain - Final Sputum Sputum Culture - Final 10/05/20 04:00 Catheter Tip Culture - Preliminary Catheter Tip 10/04/20 15:35 Urine Culture - Final Urine,Voided 10/02/20 22:55 Blood Culture - Preliminary Blood No Growth after 72 hours 10/04/20 12:30 Blood Culture - Preliminary Blood No Growth after 24 hours 10/02/20 23:10 Gram Stain - Final Sputum Sputum Culture - Final
--- NOTE | 2020-10-06 13:25 | PN ---
PROGRESS NOTE Patient is seen for followup for acute kidney injury currently hemodialysis dependent. Patient has underlying COVID pneumonia and acute hypoxic respiratory failure. She was extubated and was reintubated for worsening respiratory status and there is concern for ARDS currently. The patient is also volume overloaded and currently receiving daily dialysis treatments. PHYSICAL EXAMINATION: On examination today, patient is currently prone. She is sedated and on the vent. The patient was maintained on Nimbex as well. She remains with edema to bilateral upper and lower extremities. ECONOMICS TEACHER exam cannot be performed. Blood pressure this morning was 119/82, heart rate 120 per minute, she is afebrile. LABS: Reviewed. Sodium 137, potassium 4.4, chloride 102, CO2 is 24, BUN 30, creatinine 2.9. ASSESSMENT: 1. Acute kidney injury, oliguric acute tubular necrosis, currently dialysis dependent with volume overload, receiving daily treatments. We will plan for dialysis again tomorrow and increase UF as tolerated to help with the oxygenation. 2. Acute hypoxic respiratory failure secondary to COVID pneumonia/ARDS. Oxygenating better while prone. We will continue to increase ultrafiltration to help with the oxygenation which seems to have improved after 2 consecutive treatments. 3. Volume overload, slowly improving, improving with daily hemodialysis and ultrafiltration. 4. Morbid obesity. 5. Status post trach and PEG tube placement on September 18. PLAN: Repeat dialysis in a.m. Increase UF as tolerated. MMODL / IJN: [id number] /
--- NOTE | 2020-10-06 16:03 | XR ---
EXAMINATION TYPE: XR chest 1V portable DATE OF EXAM: 10/06/2020 CLINICAL HISTORY: Difficulty breathing and pneumonia progress study. TECHNIQUE: Single AP portable upright view of the chest is obtained. COMPARISON: Chest x-ray from one day earlier and older studies. FINDINGS: Stable tracheostomy tube and right internal jugular dialysis catheter. Bilateral multifocal and confluent opacities redemonstrated. Silhouetting left heart border again see n. Heart size stable and upper limits of normal. Osseous structures are intact. IMPRESSION: Persistent bilateral multifocal and confluent opacities consistent with covid-19 infectio n and/or ARDS period no significant change from one day earlier.
[2020-10-06 17:46] LABS: Glucose,Whole Blood 146 mg/dL (75-99)
[2020-10-06 21:34] LABS: Glucose,Whole Blood 121 mg/dL (75-99)
[2020-10-07 00:05] LABS: Glucose,Whole Blood 114 mg/dL (75-99)
[2020-10-07] MEDS: INSULIN ASPART (NovoLOG) 100 UNIT/ML VIAL SQ SCH ×10 (00:33→23:40)
[2020-10-07] MEDS: CISATRACURIUM 200 MG in SODIUM CHLORIDE 0.9% 180 ML IV SCH ×3 (00:49→21:30)
[2020-10-07] MEDS: ARTIFICIAL TEARS-HYPROMELLOSE DROPS 15 ML BTL BOTH EYES SCH ×6 (03:58→23:40)
[2020-10-07 04:54] LABS: Albumin 2.4 g/dL (3.5-5.0); Calcium 9.2 mg/dL (8.4-10.2); Potassium 4.8 mmol/L (3.5-5.1); Total Bilirubin 0.3 mg/dL (0.2-1.3); Total Protein 5.1 g/dL (6.3-8.2)
[2020-10-07 04:55] LABS: Anisocytosis Slight; Basophils # (A) 0.1 k/uL (0-0.2); Basophils % (A) 1 %; Eosinophils # (A) 1.3 k/uL (0-0.7); Eosinophils % (A) 16 %; HCT 27.7 % (34.0-46.0); Hypochromasia Marked; Lymphocytes # (A) 0.9 k/uL (1.0-4.8); Lymphocytes % (A) 11 %; MCH 26.9 pg (25.0-35.0); MCHC 30.2 g/dL (31.0-37.0); MCV 89.1 fL (80.0-100.0); Mean Platelet Volume 8.5; Monocytes # (A) 0.5 k/uL (0-1.0); Monocytes % (A) 6 %; Neutrophils # (A) 5.1 k/uL (1.3-7.7); Neutrophils % (A) 63 %; Platelet Count 296 k/uL (150-450); Poikilocytosis Slight; RBC 3.11 m/uL (3.80-5.40); RDW 16.2 % (11.5-15.5); WBC 8.1 k/uL (3.8-10.6)
[2020-10-07 04:59] LABS: HGB 8.4 gm/dL (11.4-16.0)
[2020-10-07 05:08] LABS: C Reactive Protein 22.1 mg/dL (<1.0)
[2020-10-07 06:13] LABS: ABG Base Excess -3.8 mmol/L; ABG HCO3 23 mmol/L (21-25); ABG Oxygen Saturation 88.4 % (94-97); ABG PCO2 53 mmHg (35-45); ABG PH 7.25 (7.35-7.45); ABG PO2 63 mmHg (83-108); ABG TCO2 25 mmol/L (19-24); Allen Test Performed? Yes
[2020-10-07] MEDS: fentaNYL (PF) 2,500 MCG in SODIUM CHLORIDE 0.9% 200 ML IV SCH ×2 (06:25→21:52)
[2020-10-07] MEDS: SEVELAMER 800 MG TAB PO SCH ×3 (06:38→17:29)
[2020-10-07 06:40] LABS: Glucose,Whole Blood 100 mg/dL (75-99)
[2020-10-07] MEDS: INSULIN DETEMIR (LEVEMIR) 100 UNIT/ML SYR SQ SCH ×2 (06:43→21:44)
--- NOTE | 2020-10-07 07:23 | XR ---
EXAMINATION TYPE: XR chest 1V portable DATE OF EXAM: 10/07/2020 COMPARISON: 10/06/2020 HISTORY: Covid TECHNIQUE: Single frontal view of the chest is obtained. FINDINGS: There are diffuse airspace opacities bilaterally essentially unchanged compared to the nolvia or study. There is no pneumothorax or large pleural effusion. Heart size is normal. There is a central venous catheter the tip of which is in the SVC/RA junction. There is a tracheostom y tube. IMPRESSION: Acute lung infiltrates with no interval change.
[2020-10-07] MEDS: ALBUTEROL HFA INHALER INHALATION SCH ×4 (08:29→19:16)
[2020-10-07] MEDS: SYMBICORT 160-4.5 MCG INHALER INHALATION SCH ×2 (08:29→19:16)
--- NOTE | 2020-10-07 10:13 | P.PN ---
Progress Note - Text Progress Note Date: 10/07/20 patient still remains in restraints failure. PEG tube site is clean. Tracheostomysite is clean. Respiratory failure, malnutrition will receive supportive care.
--- NOTE | 2020-10-07 10:52 | P.PN ---
Subjective Progress Note Date: 10/07/20 Principal diagnosis: This is a 35-year-old female seen in consultation with acute kidney injury hemodialysis dependent, etiology is Covid. Currently she is on daily dialysis, her lungs x-rays show complete white out with bilateral and infiltrates possible pneumonia and/or CHF. She is tolerating dialysis, currently on a 2.5 L ultrafiltration goal. She is on 100% FiO2 she is off of levo fed She is known with diabetes Objective - Vital Signs Vital signs: Vital Signs Temp 100.5 F H 10/07/20 04:00 Pulse 133 H 10/07/20 07:00 Resp 32 H 10/07/20 07:00 BP 132/72 10/06/20 14:01 Pulse Ox 87 L 10/07/20 08:00 Intake & Output 10/06/20 10/07/20 10/07/20 18:59 06:59 18:59 Intake Total 6348.466 6751.179 236 Output Total 3200 0 0 Balance -5359.799 2206.179 236 Weight 125.3 kg 118.1 kg Intake: IV 137 153 26 0.9 Normal Saline @ KVO 110 120 20 0.9 Normal Saline 27 33 6 Pressure Bag Intake, IV Titration 5964.049 3599.179 200 Amount Cisatracurium 200 mg In 353.098 191.957 200 Sodium Chloride 0.9% 180 ml @ 1 MCG/KG/MIN 7.308 mls/hr IV .Q24H [facility] Rx#: [id number] Norepinephrine 8 mg In 85.876 107.122 Sodium Chloride 0.9% 250 ml @ 0.05 MCG/KG/MIN 11. 61 mls/hr IV .[id number] [facility] Rx#:[id number] fentaNYL (PF) 2,500 mcg 496.036 500 In Sodium Chloride 0.9% 200 ml @ Per Protocol IV .Q0M [facility] Rx#:[id number] propofoL 1,000 mg In 510.5 471.1 Empty Bag 1 bag @ Per Protocol IV .Q0M [facility] Rx#: [id number] Tube Feeding 200 120 10 Other 90 90 Output: Urine 0 0 0 Hemodialysis 3200 Other: Voiding Method Incontinent Incontinent ABP, PAP, CO, CI - Last Documented Arterial Blood Pressure 120/72 Examination she is on the ventilator 100% FiO2. His sedated No facial asymmetry noted Lungs are clear to auscultation fair air entry bilaterally Heart sounds are unremarkable normal sinus rhythm Abdomen is soft Extremity examination reveals 2+ edema - Labs CBC & Chem 7: 10/07/20 04:23 10/07/20 04:23 Labs: Abnormal Lab Results - Last 24 Hours (Table) 10/06/20 10/06/20 10/06/20 Range/Units 12:02 17:45 21:23 RBC (3.80-5.40) m/uL Hgb (11.4-16.0) gm/dL Hct (34.0-46.0) % MCHC (31.0-37.0) g/dL RDW (11.5-15.5) % Lymphocytes # (1.0-4.8) k/uL Eosinophils # (0-0.7) k/uL D-Dimer (<0.60) mg/L FEU ABG pH (7.35-7.45) ABG pCO2 (35-45) mmHg ABG pO2 (83-108) mmHg ABG Total CO2 (19-24) mmol/L ABG O2 Saturation (94-97) % Sodium (137-145) mmol/L BUN (7-17) mg/dL Creatinine (0.52-1.04) mg/dL POC Glucose (mg/dL) 147 H 146 H 121 H (75-99) mg/dL Lactate Dehydrogenase (313-618) U/L C-Reactive Protein (<1.0) mg/dL Total Protein (6.3-8.2) g/dL Albumin (3.5-5.0) g/dL 10/07/20 10/07/20 10/07/20 Range/Units 00:03 04:23 04:23 RBC 3.11 L (3.80-5.40) m/uL Hgb 8.4 L D (11.4-16.0) gm/dL Hct 27.7 L (34.0-46.0) % MCHC 30.2 L (31.0-37.0) g/dL RDW 16.2 H (11.5-15.5) % Lymphocytes # 0.9 L (1.0-4.8) k/uL Eosinophils # 1.3 H (0-0.7) k/uL D-Dimer 3.15 H (<0.60) mg/L FEU ABG pH (7.35-7.45) ABG pCO2 (35-45) mmHg ABG pO2 (83-108) mmHg ABG Total CO2 (19-24) mmol/L ABG O2 Saturation (94-97) % Sodium (137-145) mmol/L BUN (7-17) mg/dL Creatinine (0.52-1.04) mg/dL POC Glucose (mg/dL) 114 H (75-99) mg/dL Lactate Dehydrogenase (313-618) U/L C-Reactive Protein (<1.0) mg/dL Total Protein (6.3-8.2) g/dL Albumin (3.5-5.0) g/dL 10/07/20 10/07/20 10/07/20 Range/Units 04:23 06:09 06:36 RBC (3.80-5.40) m/uL Hgb (11.4-16.0) gm/dL Hct (34.0-46.0) % MCHC (31.0-37.0) g/dL RDW (11.5-15.5) % Lymphocytes # (1.0-4.8) k/uL Eosinophils # (0-0.7) k/uL D-Dimer (<0.60) mg/L FEU ABG pH 7.25 L (7.35-7.45) ABG pCO2 53 H (35-45) mmHg ABG pO2 63 L (83-108) mmHg ABG Total CO2 25 H (19-24) mmol/L ABG O2 Saturation 88.4 L (94-97) % Sodium 135 L (137-145) mmol/L BUN 26 H (7-17) mg/dL Creatinine 2.59 H (0.52-1.04) mg/dL POC Glucose (mg/dL) 100 H (75-99) mg/dL Lactate Dehydrogenase 955 H (313-618) U/L C-Reactive Protein 22.1 H (<1.0) mg/dL Total Protein 5.1 L (6.3-8.2) g/dL Albumin 2.4 L (3.5-5.0) g/dL Microbiology - Last 24 Hours (Table) 10/02/20 22:55 Blood Culture - Preliminary Blood No Growth after 96 hours 10/04/20 12:30 Blood Culture - Preliminary Blood No Growth after 48 hours 10/04/20 15:35 Gram Stain - Final Sputum Sputum Culture - Final 10/05/20 04:00 Catheter Tip Culture - Preliminary Catheter Tip Assessment and Plan Assessment: Impression 1. Acute kidney injury secondary to COVID-19 pneumonia, currently hemodialysis dependent and anuric, getting dialysis daily. Today on dialysis stable 2. Ventilator-dependent respiratory failure on 100% FiO2 3. Diabetes mellitus and obesity 4. Febrile 5. Anemia hemoglobin is 8.4 5. Significant hypoxia this morning predialysis, pO2 is 49 on 50% and her PEEP was increased. It is 7.31 and pCO2 is 43 6. Edema. Recommendation. 1. Will plan to dialyze her daily if possible but we will reassess her tomorrow.
[2020-10-07 11:02] LABS: Ferritin 2544.2 ng/mL (10.0-291.0)
[2020-10-07] MEDS: SODIUM CHLORIDE 0.9% 500 ML 500 ML IV SCH (11:23)
[2020-10-07] MEDS: ENOXAPARIN 30 MG/0.3 ML SYRINGE SQ SCH (11:35)
[2020-10-07] MEDS: CHOLECALCIFEROL 25 MCG (1000 IU) TABLET PO SCH (11:35)
[2020-10-07] MEDS: ASCORBIC ACID 500 MG TAB PO SCH ×2 (11:35→21:30)
[2020-10-07] MEDS: DEXAMETHASONE SOD PHOSPHATE 4 MG/ML 1 ML VIAL IV SCH (11:35)
[2020-10-07] MEDS: SODIUM BICARBONATE TAB 650 MG TAB PO SCH ×3 (11:36→21:30)
[2020-10-07] MEDS: PANTOPRAZOLE 40 MG/10 ML VIAL IVP SCH (11:36)
[2020-10-07] MEDS: ZINC SULFATE 220 MG CAP PO SCH (11:37)
[2020-10-07 11:47] LABS: Glucose,Whole Blood 96 mg/dL (75-99)
--- NOTE | 2020-10-07 12:13 | P.PN ---
Subjective Progress Note Date: 10/07/20 Principal diagnosis: Acute hypoxic respiratory failure secondary to COVID-19 pneumonia and ARDS secondary to COVID-19 pneumonia This is a 55-year-old -[place] female with history of type 2 diabetes, admitted today through the emergency room with a few days' history of increased shortness of breath, cough, fever, chest x-ray in the ER showed bilateral infiltrates consistent with COVID-19 pneumonia in the patient had positive PCR for COVID-19 infection. Patient had significantly abnormal labs on admission, she had an extremely low bicarb, extremely low pH, and marginal oxygenation at best. Patient was admitted to the regular medical floor, and I happened to be rounding on that same floor were and I was notified about this patient having worsening respiratory distress. Evaluated the patient, clearly the patient has DKA and she clearly has acute hypoxic respiratory failure secondary to COVID-19 pneumonia. As soon as I laid eyes on the patient, recommended immediate transfer to the ICU. Patient was placed on BiPAP however she did not tolerate BiPAP well, and when I went back to evaluate the patient in the ICU, she was basically deteriorating, and she was using her accessory muscles, patient was in severe respiratory distress. Hence I recommended immediate intubation and placement on mechanical ventilation. Chest x-ray continued to show bilateral in filtrates consistent with worsening COVID-19 pneumonia ABG showed a pO2 of 59 pCO2 of 42 pH of 7.05 and this was on the 100% FiO2 20 of PEEP tidal volume of 375 rate of 36. Patient will be given more bicarb and she is already on a bicarb drip. She is receiving insulin and she is also receiving IV fluids in the form of 0.9 normal saline. Sugars were 384. Inflammatory markers were added to be extremely high, LDH 8, and C-reactive protein of 8.7. D-dimer was borderline elevated at 1.84. On 09/12/2020 patient seen in follow-up in the intensive care unit, yesterday she was emergently transferred to the intensive care and intubated and placed on mechanical ventilator. She remains intubated, sedated on mechanical ventilator, currently on assist control mode of ventilation with a rate 36, tidal vital 375, FiO2 100% and PEEP of 20. This might blood gas reveals pO2 of 62, pCO2 40, pH of 7.35 this was done on FiO2 of 80%, her peak airway pressure is 35, in her plateau pressure is around 32. she is sedated on Diprivan and 60 mics per kilo per minute, 0.9 normal saline at 100 ML per hour, insulin drip is at 4 units per hour, and she has 5% dextrose with 3 units of bicarbonate at 100 ML per hour. Today's labs have been reviewed, showing white blood cell count 10.3, hemoglobin of 14.4, d-dimer has increased to 14.31, and her Lovenox was adjusted and increased to 50 mg twice daily, sodium is 137, potassium is 3.7, chloride is 112, CO2 is up to 21, BUN of 16 creatinine is 1.57, LDH is 2618, CRP is 18.2. Pro-Calcitonin level came back elevated at 3.53, suggesting possibility of bacterial infection She received a liter bolus yesterday after intubation. We will give the patient additional fluid boluses today. Sputum culture has been sent and is pending, blood cultures have been sent. Patient has been placed in prone position at 8:00 last night, and her oxygenation seems to be improved and she satting 97% on 100% FiO2 and subsequently FiO2 was dropped down to 80%, and PEEP is down to 18. She remains in prone positioning, tolerating it well, she is having low-grade fevers, she is in sinus mechanism with tachycardic on the monitor, not requiring any vasopressor support right now, will start tube feedings today when the patient is placed back over in the supine position On 09/13/2020 patient seen in follow-up in intensive care unit, she remains proned, and at the time of our evaluation patient has already been prone for close to 16 hours and is about to be turned back on her spine. She tolerates prone position quite well, she remains intubated, paralyzed and sedated on mechanical ventilator, current vent settings are assist-control mode of ventilation with a rate of 36, tidal volume 375, FiO2 of 70% and PEEP of 18, this point his blood gases show pO2 of 82, pCO2 of 39, and pH of 7.19. She's currently on D5 W with 3 A of bicarbonate at 75 per hour, Diprivan is a 60 mics per kilo per minute, index is at 2 mics per kilo per minute, and insulin drip is at 6 units per hour, patient has not started tube feedings yet. She is in sinus mechanism, hemodynamically stable, not requiring any vasopressor support. Today's chest x-ray has been reviewed showing bilateral lung infiltrates that appear to be stable. Today's labs have been reviewed showing white blood cell count of 11.1, hemoglobin 13.2, d-dimer is pending, yesterday his d-dimer was 14.3, patient's Lovenox dose was increased to 50 mg every 24 hours. Her renal function continued to worsen, and her creatinine is up to 3.4 on today's labs, BUN is 24, were bicarb concentration is only 13 on today's labs, sodium is 137, potassium is 4.0. AST is up to 77, ALT and alk phos are within normal limits, yesterday set him inflammatory markers with showing up trending LDH at 2618, and CRP of 18.2. Her pro-calcitonin level was increased yesterday at 3.53 and we added empiric antibiotics in the form of Zosyn. Sputum culture has been sent and has shown no growth. Overnight patient remained oliguric, yesterday we gave her additional fluids, however did not improve her renal function and her kidney function continued to get worse. Nephrology consultation has been requested, she has only been producing urine in the order of 5-10 ML per hour, renal ultrasound has been obtained showing no evidence of hydronephrosis bilaterally. On 09/14/2020 patient seen in follow-up in intensive care unit, she remains intubated, sedated and paralyzed, currently on assist control mode of ventilation with a rate of 36, tidal vital 375, FiO2 of 60% and PEEP of 18. This morning's blood gas was reviewed showing pO2 of 60, pCO2 of 43, and pH of 7.32. This was done on FiO2 of 70%, her peak airway pressure is 40, plateau pressures 26. She is currently on D5 with 3 A of bicarbonate at 100 ML per hour , insulin drip is at 7 units per hour, fentanyl drip is a 0.5 mics per kilo per hour, Diprivan and is at 50 mics per kilo per minute, and index is at 2 mics per kilo per minute. She is tolerating tube feedings of vital high-protein at 27 with a goal 27 standard water flushes. Today's chest x-ray has not been completed yet, because the patient has been in prone position for last 16 hours. Patient tolerates prone in quite well, and her oxygenation improves when she is in prone position. However when she is turned over in the supine position to complete chest x-rays and ADL's, patient's O2 sat drops down to low 80s and her FiO2 requirement increases at that time. Today's labs have been reviewed, and there has been further worsening of her renal function, and patient has made almost no urine overnight. Her BUN is 33, and creatinine is 4.87, nephrology is following, her renal ultrasound showed no evidence of hydronephrosis. Her urinalysis showed possibility of urinary tract infection, and patient has been started on cefepime. Urine culture is pending at this time, blood and sputum cultures have been negative. No fevers overnight, she's not requiring any vasopressor support. On 09/15/2020 patient seen in follow-up in intensive care unit, she remains intubated, sedated and paralyzed on assist-control mode of ventilation with a rate of 36, tidal vital 375, FiO2 100% and PEEP of 18, this morning's blood gas reviewed showing pO2 of 58, pCO2 of 45, and pH is 7.35, this was done on FiO2 of 100%. Her peak airway pressures 44, plateau pressures 38, she is on 0.9 normal saline at 50 ML per hour, Diprivan is a 40 mics per kilo per minute, Nimbex drip is a 2 mics per kilo per minute, and fentanyl drip at 0.5 mics per kilo per hour, she is tolerating tube feedings with vital high-protein is 27 with a goal of 27 standard water flushes. She is in sinus mechanism with a rate of 73, she is hemodynamically stable and not requiring any vasopressors. Today's chest x- ray shows ARDS, bilateral airspace opacities, no significant pleural effusion and no pneumothorax. Today's labs have been reviewed, white blood cell count is 9.9, hemoglobin is 11.3, sodium is 134, respiratory electrolytes were within normal limits, and there has been further worsening of her renal function with BUN of 34, creatinine is 4.78, her urine output has remained very poor. Last night she had her first hemodialysis session and no fluid was removed, this morning she is having another hemodialysis treatments and the goal is to remove half a liter of fluid. Her sputum, blood and urine cultures remained negative thus far, patient's pro-calcitonin level came back significantly elevated at 23.5 suggesting evidence of bacterial infection. Patient remains on cefepime for antibiotic coverage, she also remains on Decadron milligrams twice daily, and Lovenox is 50 mg every 24 hours. The patient is seen today 09/16/2020 in follow-up in the intensive care unit. She remains intubated on the mechanical ventilator. Current settings assist- control at a rate of 36, tidal volume 3 or 75, FiO2 100% and a PEEP of 18. Morning blood gases reveal a pO2 of 61, pCO2 49, pH 7.32. Peak pressures of 48, plateau pressure 43. Chest x-ray continues to show evidence of ARDS, pulmonary edema, diffuse pneumonia. She was not proned last night. The plan is to receive hemodialysis again today. Ultrasound of the chest did not reveal any significant fluid for thoracentesis. Sedated on propofol at 50 mcg/kg/m, fentanyl at 0.5 mcg/kg per hour, Nimbex at 3 mcg/kg/m. Insulin drip at 4 units per hour. She is being nourished with vital HPI at 36 ML's per hour. 0.9 normal saline at 60 ML's per hour. Blood, sputum and urine cultures reveal no growth. White count 11.2. Hemoglobin 11.0. Sodium 134. Potassium 3.4. Creatinine 4.44. Glucose 164. She remains in sinus rhythm. She is continued on Symbicort, albuterol. Antibiotics in the form of cefepime. Remains on Decadron, Lovenox, vitamin supplements. Reevaluated today on 09/17/2020, remains in the ICU, intubated and mechanically ventilated. Patient is on assist control rate of 36 tidal volume 350 FiO2 80% and will cut it down to 70% PEEP is at 20. ABG showed a pO2 of 102 pCO2 of 40 pH of 7.37 and this was on a 90% FiO2 now her FiO2 is down to 70%. Patient remains on hemodialysis, and she is receiving hemodialysis daily. She is on Nimbex at 30 mcg/kg/m, he is also on fentanyl at 0.5 mg/kg/h insulin at 6 units per hour propofol at 50 mcg/kg/m patient has been in prone position almost at least 16 hours per day. Remains on enteral feeding and would've may consider TPN in addition to her enteral feeding if not meeting her total caloric requirements. Patient remains on cefepime. Decadron and Lovenox. Chest x-ray continues to show significant bilateral interstitial infiltrates. WBC count is 10.3 hemoglobin is 10.4, basic metabolic profile showed low potassium of 3.1 being addressed by nephrology BUN is 33 creatinine 4.29. LDH is coming down a bit 1912 C-reactive protein is coming down to 1.3. Patient was reevaluated today on 10/03/2020, remains in the ICU, intubated and mechanically ventilated. She is on assist control rate of 28 tidal volume 400 FiO2 60% PEEP is at 10 I went ahead and increased the PEEP to 12, FiO2 cut down to 55% ABG showed a pO2 of 67 pCO2 of 38 pH of 7.41. Patient remains on propofol at 45 mcg/kg/m, fentanyl at 0.7 mcg/kg/h, she is on enteral feeding using vital AF. She is up to goal. Patient remains on hemodialysis 3 days a week, she had hemodialysis yesterday and 3.5 L were taken off. Patient has multiple lines including dialysis catheter, PICC line, and arterial line. Patient is arousable, however she gets extremely agitated, and starts gagging and desaturating. Hence not ready for any weaning, and I kept her on the ventilator settings as noted earlier. Ration is not making any urine, she is completely dialysis dependent. Fecal management system remains in place. Venkatesh gregorio is not requiring any pressors. Chest x-ray continues to show diffuse bilateral interstitial infiltrates consistent with pneumonia or possibly underlying pulmonary edema/fluid overload from her renal failure. She had a T- max of 101, presently her hemoglobin is 7.4, platelets are 160, d-dimer is 4.05. 31 creatinine 3.8. LDH is 1016 C-reactive protein is 13.6. Overall prognostic picture does not look very promising. Urine cultures and blood cultures and urine cultures have been relatively nondiagnostic Patient was reevaluated today on 10/04/2020, remains in the ICU, intubated and mechanically ventilated. Patient is undergoing hemodialysis during my evaluation. Last night I had to increase her FiO2 and she is now on 65% FiO2, tidal volume is 400 assist control rate 28, and PEEP is 14. Chest x-ray continues to show bilateral interstitial infiltrates/edema. Hoping that, but will clear after hemodialysis, and hopefully we can cut down her FiO2 back again to 50% if possible. ABG on 60% was marginal with a pO2 of 55 pCO2 of 38 pH of 7.38. Patient remains on propofol at 50 fentanyl 20.5 mcg/kg/m, IV fluid to KVO. Goal today is to remove 4 L of fluid by hemodialysis/ultrafiltration. In spite of being on relatively good dose of propofol and fentanyl, patient is awake, follows simple instructions. Patient has a low-grade temp of 100.3. She had a T-max of 101 yesterday. Hemoglobin is low today, and she will receive 1 units of packed RBCs for hemoglobin of 6.8. Basic metabolic profile is relatively normal. PH is 859 and C-reactive protein is 14.4. Patient remains on the COVID-19 cocktail. Remains on Symbicort, Decadron 4 mg IV push daily, Lovenox 30 mg subcu daily, she is also on insulin as per protocol, and she is on Protonix, sodium bicarb 650 mg by mouth 3 times a day, today, the patient is not requiring any pressors. Patient was reevaluated today on 10/05/2020, remains in the ICU, intubated, mechanically ventilated, patient is doing worse today compared to the last few days, her chest x-ray is worsening, her O2 requirement is rising and she is back on the percent FiO2, I have also increased her PEEP to 16, assist control rate was increased to 52, FiO2 is on the percent. ABG earlier today on 70% FiO2 showed a pO2 of 56 pCO2 of 50 pH of 7.32. She was on assist control rate of 28 tidal volume of 400 FiO2 70% and PEEP of 14. Patient had to be placed on a higher dose of propofol which was increased to 70 fentanyl is at 2 mcg/kg/m, patient will be placed on Nimbex as I'm having difficulty oxygenating the patient in spite of high FiO2. She is scheduled to undergo hemodialysis again today, she had 4 L off yesterday. Remains on tube feeds using vital AF at 30 MLS per hour. Patient is tachycardic rate is 129, blood pressure is marginal 86/45, hence may recommend adding norepinephrine. The overall picture clearly showing deterioration in this patient's clinical status, and I have a feeling that this patient will continue to do poorly and she is now maximized on treatment. Again her chest x-ray is showing significant worsening of her infiltrates. Patient was reevaluated today on 10/06/2020, remains in the ICU, intubated and mechanically ventilated, and she is presently in prone position since last night for the next few hours until dialysis which is supposed to start sometime in the next couple of hours. Patient remains on assist control mode of mechanical ventilation, it is volume control with volume of 350 rate of 3 to FiO2 65%. 14. Her ABG showed a pO2 of 68 pCO2 of 52 pH of 7.28. Patient remains on propofol at 75 fentanyl at 3 mcg/kg/h she is also on norepinephrine at 0.02 and Nimbex at 3 mcg/kg/m. Patient is scheduled to have hemodialysis today. Chest x-ray continues to show evidence of bilateral interstitial infiltrates. Patient is on enteral feeding in the form of Nepro at 30/30. Patient has been proned now for the last 17 hours. Electrolytes are normal however her BUN is 30 creatinine 2.93. Blood sugar is 147 WBC count is 5.1 hemoglobin is 11.4. Patient remains on the COVID-19 cocktail. Remains on albuterol, Symbicort, Decadron 4 mg IV push daily, Lovenox 30 mg subcu daily. Insulin protocol. Her tonic 40 mg IV push daily. Off antibiotics. Patient was reevaluated today on 10/07/2020, remains in the ICU, intubated and mechanically ventilated, presently receiving hemodialysis. She is on assist control rate of 32, tidal volume of 350, FiO2 is up to on the percent today, and PEEP of 14. Higher PEEP did not seem to help much, hence I kept her on a PEEP of 14. ABG today showed a pO2 of 63 pCO2 53 pH of 7.25. A shunt is on Nimbex at 4 mcg/kg/m, fentanyl 3 mcg/kg/h, norepinephrine at 0.07 mcg/kg/m, propofol at 75 mcg/kg/m. Again the patient is receiving hemodialysis, and I have instructed the nurses today to go back into prone position after she is done with dialysis. Chest x-ray continues to show worsening interstitial infiltrates and ARDS picture. Labs were all reviewed. Her medications were all reviewed today. Basic metabolic profile is normal BUN is 26 creatinine 2.59. LDH is 955 and C- reactive protein is 22.1. Not much of a change in the last few days. Objective - Vital Signs Vital signs: Vital Signs Temp 98.9 F 10/07/20 08:00 Pulse 126 H 10/07/20 11:00 Resp 32 H 10/07/20 11:00 BP 132/72 10/06/20 14:01 Pulse Ox 90 L 10/07/20 11:00 Intake & Output 10/06/20 10/07/20 10/07/20 18:59 06:59 18:59 Intake Total 7274.681 3157.179 275 Output Total 3200 0 0 Balance -5342.687 0758.179 275 Weight 125.3 kg 118.1 kg Intake: IV 137 153 65 0.9 Normal Saline @ KVO 110 120 50 0.9 Normal Saline 27 33 15 Pressure Bag Intake, IV Titration 9342.885 2820.179 200 Amount Cisatracurium 200 mg In 353.098 191.957 200 Sodium Chloride 0.9% 180 ml @ 1 MCG/KG/MIN 7.308 mls/hr IV .Q24H [facility] Rx#: [id number] Norepinephrine 8 mg In 85.876 107.122 Sodium Chloride 0.9% 250 ml @ 0.05 MCG/KG/MIN 11. 61 mls/hr IV .[id number] [facility] Rx#:[id number] fentaNYL (PF) 2,500 mcg 496.036 500 In Sodium Chloride 0.9% 200 ml @ Per Protocol IV .Q0M [facility] Rx#:[id number] propofoL 1,000 mg In 510.5 471.1 Empty Bag 1 bag @ Per Protocol IV .Q0M [facility] Rx#: [id number] Tube Feeding 200 120 10 Other 90 90 Output: Urine 0 0 0 Hemodialysis 3200 Other: Voiding Method Incontinent Incontinent ABP, PAP, CO, CI - Last Documented Arterial Blood Pressure 128/70 - Exam GENERAL EXAM: Revealed a 35-year-old female, obese, on mechanical ventilation, sedated, paralyzed, presently in supine position, receiving hemodialysis. HEAD: Normocephalic/atraumatic. Tracheostomy is intact. EENT: PERRLA, EOMI, nonicteric, no neck masses, no JVD, CHEST: No chest wall deformity. Symmetrical expansion. LUNGS: Continues to have some crackles at the bases.. CVS: Distant S1 and S2, no S3 gallop, no murmur. ABDOMEN: Obese soft nontender no megaly no rebound no guarding. PEG tube is intact. EXTREMITIES: No clubbing, 2+ bipedal edema, no cyanosis, 2+ pulses and upper and lower extremities. Psychiatric: Sedated, and paralyzed, could not assess SKIN: No rashes CENTRAL NERVOUS SYSTEM: Sedated and paralyzed, could not assess - Labs CBC & Chem 7: 10/07/20 04:23 10/07/20 04:23 Labs: Abnormal Lab Results - Last 24 Hours (Table) 10/06/20 10/06/20 10/07/20 Range/Units 17:45 21: 00:03 RBC (3.80-5.40) m/uL Hgb (11.4-16.0) gm/dL Hct (34.0-46.0) % MCHC (31.0-37.0) g/dL RDW (11.5-15.5) % Lymphocytes # (1.0-4.8) k/uL Eosinophils # (0-0.7) k/uL D-Dimer (<0.60) mg/L FEU ABG pH (7.35-7.45) ABG pCO2 (35-45) mmHg ABG pO2 (83-108) mmHg ABG Total CO2 (19-24) mmol/L ABG O2 Saturation (94-97) % Sodium (137-145) mmol/L BUN (7-17) mg/dL Creatinine (0.52-1.04) mg/dL POC Glucose (mg/dL) 146 H 121 H 114 H (75-99) mg/dL Ferritin (10.0-291.0) ng/mL Lactate Dehydrogenase (313-618) U/L C-Reactive Protein (<1.0) mg/dL Total Protein (6.3-8.2) g/dL Albumin (3.5-5.0) g/dL 10/07/20 10/07/20 10/07/20 Range/Units 04:23 04:23 04:23 RBC 3.11 L (3.80-5.40) m/uL Hgb 8.4 L D (11.4-16.0) gm/dL Hct 27.7 L (34.0-46.0) % MCHC 30.2 L (31.0-37.0) g/dL RDW 16.2 H (11.5-15.5) % Lymphocytes # 0.9 L (1.0-4.8) k/uL Eosinophils # 1.3 H (0-0.7) k/uL D-Dimer 3.15 H (<0.60) mg/L FEU ABG pH (7.35-7.45) ABG pCO2 (35-45) mmHg ABG pO2 (83-108) mmHg ABG Total CO2 (19-24) mmol/L ABG O2 Saturation (94-97) % Sodium 135 L (137-145) mmol/L BUN 26 H (7-17) mg/dL Creatinine 2.59 H (0.52-1.04) mg/dL POC Glucose (mg/dL) (75-99) mg/dL Ferritin 2544.2 H (10.0-291.0) ng/mL Lactate Dehydrogenase 955 H (313-618) U/L C-Reactive Protein 22.1 H (<1.0) mg/dL Total Protein 5.1 L (6.3-8.2) g/dL Albumin 2.4 L (3.5-5.0) g/dL 10/07/20 10/07/20 Range/Units 06:09 06:36 RBC (3.80-5.40) m/uL Hgb (11.4-16.0) gm/dL Hct (34.0-46.0) % MCHC (31.0-37.0) g/dL RDW (11.5-15.5) % Lymphocytes # (1.0-4.8) k/uL Eosinophils # (0-0.7) k/uL D-Dimer (<0.60) mg/L FEU ABG pH 7.25 L (7.35-7.45) ABG pCO2 53 H (35-45) mmHg ABG pO2 63 L (83-108) mmHg ABG Total CO2 25 H (19-24) mmol/L ABG O2 Saturation 88.4 L (94-97) % Sodium (137-145) mmol/L BUN (7-17) mg/dL Creatinine (0.52-1.04) mg/dL POC Glucose (mg/dL) 100 H (75-99) mg/dL Ferritin (10.0-291.0) ng/mL Lactate Dehydrogenase (313-618) U/L C-Reactive Protein (<1.0) mg/dL Total Protein (6.3-8.2) g/dL Albumin (3.5-5.0) g/dL Microbiology - Last 24 Hours (Table) 10/02/20 22:55 Blood Culture - Preliminary Blood No Growth after 96 hours 10/04/20 12:30 Blood Culture - Preliminary Blood No Growth after 48 hours 10/04/20 15:35 Gram Stain - Final Sputum Sputum Culture - Final 10/05/20 04:00 Catheter Tip Culture - Preliminary Catheter Tip Assessment and Plan Assessment: Impression: Acute hypoxic respiratory failure secondary to COVID-19 pneumonia and ARDS secondary to COVID-19 pneumonia, patient was transferred to the ICU on 09/11, intubated on 09/11, received REM on 09/11, received T OCI on 09/11, tracheostomy and PEG tube placement on 09/18 remains on mechanical ventilation with volume control plus mode , she is presently on the percent FiO2 and PEEP of 14. Acute kidney injury with complete shutdown of urine output/anuria, requiring hemodialysis. Remains on hemodialysis 3 times per week Acute diabetic ketoacidosis and COVID-19 pneumonia on her initial presentation. Sepsis secondary to COVID-19 pneumonia Type 2 diabetes poorly controlled. Hemoglobin A1c of 13.6. Elevated inflammatory markers secondary to acute COVID-19 pneumonia not much of a change in the last few days in the inflammatory markers. History of hypertension. Generalized anxiety disorder. Morbid obesity BMI of 54.2. Status post tracheostomy and PEG tube placement on 09/18. Recommendation: Continue ventilatory support and intermittent proning positions. Patient will be placed back in prone position today after dialysis. Continue nutritional support/enteral feeding. Continue Lovenox. Continue Decadron. 4 mg IV push every 24 hours Continue hemodialysis Continue insulin Continue COVID-19 cocktail. Patient will remain off antibiotics for now. Patient remains quite ill, prognosis remains extremely poor and guarded. Critical care time is over 30 minutes Time with Patient: Greater than 30
--- NOTE | 2020-10-07 12:24 | P.PN ---
Subjective Progress Note Date: 10/07/20 HISTORY OF PRESENT ILLNESS 35-year-old female patient of Dr. Arroyo with past medical history of type 2 diabetes comes in with acute shortness of breath associated with high light s ugars. Patient on admission was found to have a fever of 101.5 pulse rate 125 respiratory rate 20. Blood pressure 132/106. On chest x-ray obtained in the ER suggestive of bilateral infiltrates concerning for call with pneumonia. COVID PCR was positive. On admissions patient had an ABG with a pH of 7.14 pCO2 of 20, pO2 of 59, bicarb of 7. Patient's blood sugar on admission was 424 on assessment today patient's blood work patient had a sodium 135 potassium 5.4 chloride 123 bicarb less than 5 and creatinine 0.73. D-dimer was elevated on admission patient 9 28 patient given 1 L of IV fluids followed by normal saline running at 200 mL/h. Patient was positive for acetone on admission. She will anion gap closed and was switched to D5NS. Insulin drip was continued during the night and was switched to patient's home medication this morning. One dose of remdesiver was ordered. Apparently around noon, A- team was called on the patient secondary to hypoxia patient's oxygen saturation dropped to the 70s and 80s on 100% nonrebreather. Patient was switched to BiPAP on 18/12 and is doing better o FiO2 of 80%. ABG was obtained and ph was 7. 14 pCO2 of 28 bicarb of 7 pO2 of 17. Patient noted to have uncompensated metabolic acidosis with compensated respiratory alkalosis. Stat dose of 1 amp bicarb was given and followed by sodium bicarbonate drip. Insulin drip restarted. Patient's initiated on dexamethasone 6 mg IV twice a day. Potassium phosphate ordered as phosphorus is low. Patient's repeat blood gases suggest a pH of 7.25, CO2 32 pO2 of 72 bicarb 14. I will not normal saline at 100 mL/h as patient's anion gap has increased. Patient given 1 dose of 2 mg of morphine with improvement in respiratory rate. One dose of Ativan 0.5 mg was given. Xanax 0.25 twice a day along with Ativan 0.5 IV every 6 hours ordered for the patient. Vitals were evaluated patient pulse 129 [id number]. She was moved to the ICU. Precedex drip was initiated. Lopressor was initiated at 25 twice a day. Metoprolol tartrate 5 mg IV every 6 hours. Systolic blood pressure more than 160. Started chest x-ray was obtained and suggest stable bilateral consolidation suggestive of COVID-19 pneumonia. 09/12 patient is seen in the ICU is currently mechanically ventilated and sedated on vent settings of respiratory rate 36, tidal volume 375 FiO2 80% PEEP of 18.. Vital signs reviewed patient had a temp of 100.4 pulse 150 respiratory rate 36 oxygen saturation 95% on 80% on fio2 .'s labs are reviewed which patient had a d-dimer 1.84 that is increased to 14.3. Arterial Blood gas suggest ph 7.35, CO2 40, po2 62, . Her BMP suggest a sodium 135 potassium 3.7 chloride 112 bicarb 21 creatinine 1.57 for calcitonin is 3.5 CRP is increased from 8.78.2 LDH is increased to 2614. Patient remains on Pneumovax, propofol drip. Lovenox increased to 50 subcu twice a day. Patient received 2 L of IV fluids. Continue IV fluids at 100 mL/h. Bicarb drip discontinued patient initiated on Zosyn 3.375 every 8 hours. Continue insulin drip at 4 units per hour. Patient is currently in prone positioning 09/13: Patient evaluated in the ICU remains on Ventilation continues to be sedated, in prone position. Vent settings are respiratory rate 36, tidal vital 375, FiO2 70% PEEP of 18. ABG shows pO2 of 82, PCO2 of 39, pH is 7.19. Latest labs show WBC 11.1, hemoglobin 13.2, d-dimer still pending, but yesterday was up to 14.3. Creatinine up to 3.4, BUN 24 sodium 137, potassium 4.0. Patient's urine output has been low, nephrology on consult. Bicarb drip increased to 100 miles an hour, receiving another liter of normal saline, she did have a ultrasound that showed unremarkable bilateral kidneys. Repeat chest x-ray showed bilateral lung infiltrates that are stable. Anion gap has closed, will start Lantus 10 units at at bedtime Novolog every 6 hours. 09/14: Patient is seen in the ICU, still currently mechanically ventilated and sedated. She continues in the prone position. Her oxygen quickly drops if she is not in prone. Patient's kidney function has worsened. Laboratory values show creatinine of 4.87, BUN 33, LDH 2191, C-reactive protein 2.7. ABG shows pH 7.32, pO2 of 60, pCO2 43. Patient is making almost no urine overnight. Nephrology is following patient continues on cefepime for urinary tract infection, culture is still pending. Vascular has been consulted for placement of temporary hemodialysis catheter for plans for dialysis. 09/15: Patient evaluated in the ICU, continues to be mechanically ventilated and sedated on assist control ventilation rate of 36, tidal volume 375, FiO2 100% and PEEP of 18. ABG today shows pO2 58, pCO2 of 45, and pH 7.35. She continues on tube feedings. Yesterday patient underwent ultrasound-guided right internal jugular non-tunneled hemodialysis catheter placement. Patient underwent hemodialysis treatment last night and plans have another hemodialysis treatment today. She continues to make almost no urine. She continues on cefepime for antibiotic coverage, and continues on Decadron and Lovenox. 09/16: Patient seen on follow-up remains in the ICU mechanically ventilated and sedated. She continues on assist control rate of 36, tidal volume 375, FiO2 100% and PEEP of 20. PEEP had to be increased due to patient had to be in supine position for dialysis, will go back to prone position once dialysis is complete. ABG shows pH 7.32, pCO2 49, PaO2 61. Laboratory values showed WBC 11.2, hemoglobin 11, sodium 134, creatinine 4.44, BUN 38. Urine culture shows no growth, blood cultures show no growth to date. Repeat chest x-ray shows bilateral pleural effusions, correlate for ARDS, pulmonary edema, diffuse pneumonia, findings are stable from last exam. Patient does not require any pressors, blood pressure 133/57, heart rate 78. 5/16: Patient was evaluated in the ICU today for follow-up. She continues to be intubated and on mechanical ventilation. Current vent settings are tidal volume 375, FiO2 100% and PEEP of 20. ABG shows pH 7.37, pCO2 40, pO2 102. She continues with intermittent prone positioning. Patient continues to have almost no urine output, maintained on dialysis. Patient received dialysis yesterday without complication. Laboratory values revealed WBC 10.3, hemoglobin 10.4, sodium 132, potassium 3.1, BUN 33, creatinine 4.29, LDH 1913, C-reactive protein 1.3. Urine and sputum cultures are negative, blood cultures show no growth to date. Consult placed to dietary to start TPN[ ] 09/18: She remains in the intensive care unit intubated and on mechanical ventilation with tidal volume 375, FiO2 60 and PEEP of 20. Patient is being prone to daily at approximately 16 hours per day. Pulmonary medicine has added in Dr. Zhang to do PEG tube and trach today. Patient is not on vasopressors. Repeat blood work reveals WBC 12.6, hemoglobin 9.8, platelet count 212. Sodium 133, potassium 3.2, chloride 102, CO2 21, BUN 35 and creatinine 4.12. Blood sugar 126. Patient underwent hemodialysis yesterday with removal of 2 L and is scheduled again today with goal of 2-3 L and is scheduled again tomorrow. 09/19: She is scheduled for hemodialysis today and is off fentanyl temporarily. Patient is status post trach and PEG tube yesterday. And she remains on mechanical ventilation. Pulse ox 93-95%. She has been afebrile, heart rate 64, respiratory rate 36, blood pressure 115/50. Fentanyl is off to improve blood pressure for hemodialysis which is scheduled for today. Contacted vascular surgery about permanent hemodialysis catheter. Repeat blood work reveals WBC 14.3, hemoglobin 9.6, platelet count 200. D-dimer 6.48. LDH 1686. C-reactive protein 1.1. BUN 34 creatinine 3.81. Sodium 130, potassium 3.5, chloride 101, CO2 18. Blood sugars running between 101 198. Plan is to wean off Pneumovax today. Patient remains on insulin drip. Repeat chest x-ray reveals bilateral multifocal confluent opacities consistent with COVID-19. Some improved aeratio n periphery of the left lung and worsening opacities throughout the right lung. 09/20: She remains in the intensive care unit on mechanical ventilation. She has been afebrile, heart rate 65, respiratory rate 37, blood pressure 121/70, pulse ox 91-99%. Repeat blood work reveals WBC 14.5, hemoglobin 9.1, platelet count 216. D-dimer 6.13. Sodium 133, potassium 3.1, chloride 102, CO2 18, BUN 35 and creatinine 4.27. Blood sugars running between 128 and 143. LDH 1717. C- reactive protein 1.7. Patient remains on insulin drip which will be transitioned to NovoLog scale every 6 hours. Patient is scheduled for permanent hemodialysis catheter placement today with vascular surgery. Repeat chest x-ray reveals stable diffuse bilateral interstitial and airspace disease. Possible small right effusion. His work is following for [facility]. Do not anticipate discharge until next week. 09/21: Patient is undergoing hemodialysis. She remains on mechanical ventilation with tidal volume 375, FiO2 down to 45 and PEEP was decreased to 15. Patient is continued on propofol, fentanyl drips. She is on tube feedings at goal. Patient was taken off insulin drip yesterday and on scale only but blood sugars are running in the 200s, Levemir scheduled at bedtime will be added. Other blood work reveals WBC 13.3, hemoglobin 8.7, platelet count 192. Sodium 137, potassium 3.6, chloride 107, CO2 18, BUN 34 and creatinine 4.21. Repeat chest x-ray is stable. 09/22: She remains in the intensive care on mechanical ventilation with tidal volume 375, FiO2 of 50 and PEEP of 10. Pulse ox is running 96%. She is afebrile, heart rate in the 50s, respiratory rate 36, blood pressure 100/64. Repeat blood work reveals WBC 16.5, hemoglobin 8.9, platelet count 213. Sodium 134, potassium 3.7, chloride 103, CO2 21, BUN 34 and creatinine 3.89. Blood sugars running in the 200s to 324. Levemir increased to 16 units at bedtime and continue NovoLog scale every 6 hours. Patient is on tube feedings at goal. She has a Haley catheter in with a scant amount of dark/brown urine. Fecal management system is in place. Repeat chest x-ray reveals diffuse bilateral airspace infiltrates persist unchanged. Patient is scheduled for hemodialysis tomorrow morning on Friday. 09/23: Patient remains on mechanical ventilation with tidal volume 3.75, FiO2 50 and PEEP of 10. cafeteria monitor sinus rhythm. She has no urine output. Fecal management system is in place. She is undergoing dialysis at this time with plan for removal of 2-1/2 L. She has been afebrile, heart rate in the 50s, respiratory rate 36, blood pressure 108/76 and pulse ox 89%. WBC 13.6, hemoglobin 9.1, platelet count 194. Sodium 136, potassium 3.0 and was replaced, chloride 106, CO2 21, BUN 49 creatinine 5.31. Blood sugars are running between 182 and this morning 194. Patient was still in the 200s and 300s. Levemir last evening was increased to 16 units. Patient remains on propofol and fentanyl drips. Lovenox was increased to 60 mg twice daily. 09/24: PEEP was increased today to 20, tidal volume is at 375 and FiO2 of 50%. Patient has been afebrile. She has been started on levo fed. Repeat chest x- ray reveals bilateral multifocal confluent opacities consistent with Covid 19 or ARDS redemonstrated. Nephrology will plan dialysis for tomorrow for 3 L. Patient remains on propofol fentanyl and Nimbex. WBC 12.5, hemoglobin 9.8, platelet count 161. D-dimer 13.3. Sodium 132, potassium 3.4, chloride 102, CO2 20, BUN 48 and creatinine 4.67. Blood sugars extremely elevated to 96-409. LDH 2217. 09/25: Patient remains in the intensive care unit on mechanical ventilation with tidal volume 375, FiO2 50 and PEEP of 20. Patient is afebrile, heart rate 61, respiratory rate 36, blood pressure 102/56, pulse ox 97%. Repeat blood work reveals WBC 9.3, hemoglobin 8.5 and platelet count 171. Sodium 130, potassium 3.7, chloride 100, CO2 20, BUN 61 creatinine 5.65. Blood sugars have been elev ated up to 455. Levemir increased to 20 units twice daily, NovoLog 5 units every 6 hours and continue NovoLog scale. Patient is scheduled for hemodialysis today. Repeat chest x-ray reveals bilateral multifocal and confluent opacities. Decadron and Lovenox dosing change by pulmonary. Patient is off norepinephrine. 09/26: Patient remains in the intensive care unit on mechanical ventilation with tidal volume 375, FiO2 50 and PEEP of 15. She has been afebrile, heart rate 91, blood pressure 114/68, pulse ox 99%. cafeteria monitor sinus rhythm. 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 Sodium 134, potassium 3.6, chloride 102, CO2 22, BUN 41 creatinine 4.21. Patient has improved blood sugars this morning running 150s and 160s. Diabetic medications were adjusted yesterday. Patient is awake and alert and interacting. Yesterday, patient had PICC line inserted by interventional radiology. Repeat chest x-ray reveals diffuse airspace infiltrates in both lung ann appear to progress slightly in the interval. 09/27: Patient remains in intensive care unit on mechanical ventilation with improvement of settings with tidal volume 375, FiO2 decreased to 40 and PEEP decreased to 10. Patient is on hemodialysis every other day and plan to remove 3 L today. Patient is more awake and alert. She is slow to respond but is able to follow simple commands. Blood sugars are running between 84 and 123. Repeat blood work reveals WBC 7.1, hemoglobin 8.1, platelets 152. Sodium 135, potassium 3.6, chloride 103, CO2 21, BUN 53 and creatinine 5.88. Repeat chest x-ray revealed cardiomegaly and pulmonary edema. Patient is on tube feedings:. Patient is not require vasopressors and is off sedation. Fecal management system remains in place for brown liquid stool. C. difficile was negative. 09/28: Patient remains on mechanical ventilation with tidal volume 375, FiO2 increased to 80 and PEEP increased to 18. Patient had a rough night was very anxious, no pain. Xanax 0.25 mg 3 times daily was added. There is concern for pulmonary embolism for which patient was started on heparin drip, she is unable to undergo CAT scan. Venous Doppler bilateral lower extremities was nondiagnostic due to extensive edema in obese patient but minimal imaging of the popliteal veins does show flow. Repeat echocardiogram has been ordered. Cefepime has also been ordered at 1 g IV piggyback every 24 hours as well as vancomycin, pharmacy dosing. Patient is back on fentanyl drip, propofol drip and norepinephrine. Blood sugars are elevated and insulin Levemir will be i ncreased to 25 mg twice daily. Ferrlecit infusion has been ordered by nephrology for 4 days. Patient is undergoing hemodialysis today.temperature max 100.2, heart rate 134, respiratory rate 34, blood pressure 120/65, pulse ox 94%. cafeteria monitor is sinus tachycardia. Repeat blood work reveals WBC 16.9, hemoglobin 9.7, platelet count 216. D-dimer 8.81. Sodium 134, potassium 3.8, chloride 99, CO2 25, BUN 43 and creatinine 5.36. Blood sugars in the 200s. AST 40. 09/29 Patient had declined more last 48 hours require more sedation, patient is doing hemodialysis, respiratory failure is quite bit worse this time. Patient was inquired the pain is well back on fentanyl drip. Her vent set up with PEEP is limited but higher. No new finding on culture and her chest x-ray continues shows diffuse infiltrate persistent although there is a moderate interval improvement. 09/30 patient's was seen and evaluated. PEEP was reduced to 11 as patient is maintaining good saturation at the current vent settings. 10/01 patient was seen at bedside. She is currently on assist control rate of 28 white tidal volume 350 FiO2 50% and PEEP of 10 which has been reduced by pulmonary as patient name cleaning her oxygen saturation. Arm blood gas was obtained with a pH of 7.35 pCO2 37 pO2 of 63. She remains hemodynamically stable with no need for pressors. Labs were reviewed patient's BUN is 29 crea tinine 3.93 glucose 122 albumin 2.2 sodium 131 chloride 19 hemoglobin is downtrending with a Hb of 7.3 no leukocytosis 7.1. Patient's urine output is minimal at this time. Her rate has increased to 129 and is currently on positive fluid balance even with dialysis. Last dialysis was done yesterday. Continue enteral feeding currently at goal. Antibiotic has been discontinued and continues to remain on DEXA methicillin 4 mg IV daily. 10/02 patient continues to be on trach support with mechanical ventilation. Patient was evaluated by lathe puller and was switched to VC control as patient was noted to be double stacking on and off throughout the night. Respiratory rate continue to 28 tidal volume increased to 400 with a PEEP for Dr. Downey. Patient is maintaining oxygen saturation 91% on the current setting. According to the nurse bedside patient saturation drops significantly or she is moved or her sedation is dropped. Patient is currently on propofol drip, fentanyl drip. She did underwent dialysis today and was able to maintain her low pressure without the need of pressors. Labs reviewed today suggest a WBC of 6.7 hemoglobin of 7.0 and d-dimer 3.9 bicarb 17 BUN 38 creatinine 4.8. LDH is 964. Sodium 1:30 likely secondary to volume overload. Urine sodium and urine osmolality ordered. Patient's glucose this morning is 146. Continue to remain on enteral feeding. Urine output is reduced. Fall catheter will be placed today. Continue to remain on dialysis. 10/03: Patient remains on mechanical ventilation and is back on propofol and fentanyl drips. Patient is currently on VC control with tidal volume 400, FiO2 55 and PEEP of 12. Patient still is not making any urine and is dialysis dependent with next treatment planned for tomorrow with removal of 3-3-1/2 L. PEG tube feedings are at goal. Fecal management system remains in place. At the time of evaluation, patient is off levophed. Repeat chest x-ray reveals stable diffuse bilateral airspace disease correlate for ARDS, pulmonary edema or diffuse pneumonia. Temperature max last evening was 101. Temperature currently 99, heart rate 106, respiratory rate 32, blood pressure 101/50, pulse ox 86%. Repeat blood work reveals WBC 6, hemoglobin 7.4, platelet count 160. D-dimer 4.05. Sodium 133, potassium 3.5, chloride 100, CO2 23, BUN 31 creatinine 3.8. Blood sugars are running between 100 and 170. Ferritin 1514. Liver function test normal. LDH 1016, C-reactive protein 13.6. Prognosis remains guarded. 10/04: Patient remains intubated on mechanical ventilation with tidal volume 400, FiO2 65, PEEP of 14. Patient continues to run fevers and repeat blood culture and urine and urine culture ordered for today. Haley catheter has been removed this patient has no significant urine output at about 20 mL per shift. BladderScan is monitored for greater than 300 and the patient is straight cathed. Hemoglobin is 6.8 and she has been ordered 41 unit of packed RBCs today. She is currently on propofol and fentanyl drips. She is scheduled for hemodialysis today. WBC 4.5, hemoglobin 6.8, platelet count 151. D-dimer 3.28. Sodium 132, potassium 4.1, chloride 100, CO2 22, BUN 37 creatinine 4.74. Blood sugars running between 97 and 110. Ferritin 1801. LDH 859. C-reactive protein 14.4. Chest x-ray reveals correlate for pneumonia, edema, ARDS. Prognosis remains guarded. 10/05: Patient remains in intensive care unit currently on mechanical ventilation with tidal volume 400, FiO2 was increased to 100 and PEEP is at 14. She continues to run fevers which have worsened with temperature max 103.1. She has been tachycardic in the 130s, blood pressure is marginal but not on vasopressors. Pulse ox currently 92%. Repeat blood work reveals WBC 5.5, hemoglobin 7.6, platelet count 190. D-dimer 2.7, ferritin 1770, LDH 932, C- reactive protein 21.4. Blood sugars are running between 100 1669. Electrolytes are normal. BUN 27 and creatinine 3.79. Pancultures were done yesterday including a straight cath for urine culture, sputum culture and blood culture. Arterial line was removed as well as midline. She is currently on propofol, fen tanyl and started on Nimbex today. 10/06: Patient remains in the intensive care unit. Today patient in prone position and remains on mechanical ventilation with tidal volume 350, FiO2 65 and PEEP of 14. Her last documented fever was yesterday at 2 PM. Heart rate is in the 120s, respiratory rate 32, pulse ox 88-92%. CBC is unremarkable. Electrolytes are normal. BUN 30 creatinine 2.93. Blood sugars are running between 135 and 164. Cultures from October 04: Blood culture no growth, sputum culture finalized, urine culture finalized. Catheter tip culture is in process. Repeat chest x-ray shows bilateral interstitial infiltrates. Patient is on tube feedings of Nepro at goal of 30 ML's per hour. Patient underwent dialysis yesterday and is scheduled for repeat dialysis today. 10/07: Patient maintains in the intensive care unit intubated and on mechanical ventilation. She is receiving hemodialysis this morning has been every day. Plan is to remove 2-1/2 L today. Vent settings have changed today with tidal volume 350, FiO2 was increased to 100% and PEEP remains at 14. She has been continued on Nimbex, fentanyl, norepinephrine and propofol. Plan is to prone position patient following dialysis. Repeat chest x-ray reveals worsening interstitial infiltrates. BUN is 26 and creatinine 2.59. LDH 955, C-reactive protein 22.1. Prognosis remains poor. REVIEW OF SYSTEMS Unable to obtain due to mechanical ventilation. PHYSICAL EXAMINATION Gen: This is is a 35-year-old black female, patient is intubated and on mechanical ventilation, appears to be comfortable. Patient is in prone position. HEENT: Head is atraumatic, normocephalic. NEUROLOGICAL: Patient is sedated. Full physical examination deferred to lathe puller due to Covid 19 and intubation. ASSESSMENT AND PLAN 1. Acute hypoxic respiratory failure secondary to Covid 19 pneumonia and possib le bacterial pneumonia. Patient was intubated on September 11. She is status post 1 dose of Remdesivir and 1 dose of Tocilizumab. Continue Ventolin inhaler 4 times daily, Symbicort twice daily, Decadron 4 mg IV daily, Lovenox 30 mg subcu daily, supplements. Status post PEG tube and trach. 2. Acute diabetic ketoacidosis secondary to Covid 19 pneumonia, uncontrolled with hyperglycemia. Levemir 25 units twice daily, scheduled NovoLog 5 units every 6 hours and NovoLog scale. 3. Metabolic encephalopathy secondary to Covid 19 and DKA. 4. Sepsis and septic shock secondary to Covid 19 pneumonia with multiorgan failure. Continue as in #1. 5. Acute metabolic acidosis secondary to acute DKA, Covid 19 and acute kidney injury. 6. Diabetes mellitus type 2 uncontrolled with A1c 13.6. Continue as above. 7. Hypophosphatemia status post replacement. 8. Hyperkalemia secondary to DKA, resolved. 9. Sinus tachycardia secondary to sepsis, volume deficiency.Continue Lopressor 25 mg twice daily. 10. Acute kidney injury secondary to ATN secondary to Covid 19 and DKA. Patient continued on hemodialysis. Permanent dialysis catheter placed. 11. Possible acute gram-negative pneumonia versus MRSA pneumonia. Completed course of antibiotics. 12. Hypertension. 13. Morbid obesity with BMI of 53. 14. DVT prophylaxis. Lovenox. 15. GI prophylaxis. Protonix 40 mg IV push daily. CODE STATUS: Full code Prognosis poor. DISCHARGE PLAN [facility] Acute Care Impression and plan of care have been directed as dictated by the signing physician. Kimberly Boswell nurse practitioner acting as scribe for signing physician. Objective - Vital Signs Vital signs: Vital Signs Temp 100.5 F H 10/07/20 04:00 Pulse 133 H 10/07/20 07:00 Resp 32 H 10/07/20 07:00 BP 132/72 10/06/20 14:01 Pulse Ox 87 L 10/07/20 08:00 Intake & Output 10/06/20 10/07/20 10/07/20 18:59 06:59 18:59 Intake Total 1910.520 8225.179 236 Output Total 3200 0 0 Balance -2211.738 4944.179 236 Weight 125.3 kg 118.1 kg Intake: IV 137 153 26 0.9 Normal Saline @ KVO 110 120 20 0.9 Normal Saline 27 33 6 Pressure Bag Intake, IV Titration 5434.064 1722.179 200 Amount Cisatracurium 200 mg In 353.098 191.957 200 Sodium Chloride 0.9% 180 ml @ 1 MCG/KG/MIN 7.308 mls/hr IV .Q24H [facility] Rx#: [id number] Norepinephrine 8 mg In 85.876 107.122 Sodium Chloride 0.9% 250 ml @ 0.05 MCG/KG/MIN 11. 61 mls/hr IV .[id number] [facility] Rx#:[id number] fentaNYL (PF) 2,500 mcg 496.036 500 In Sodium Chloride 0.9% 200 ml @ Per Protocol IV .Q0M [facility] Rx#:[id number] propofoL 1,000 mg In 510.5 471.1 Empty Bag 1 bag @ Per Protocol IV .Q0M [facility] Rx#: [id number] Tube Feeding 200 120 10 Other 90 90 Output: Urine 0 0 0 Hemodialysis 3200 Other: Voiding Method Incontinent Incontinent ABP, PAP, CO, CI - Last Documented Arterial Blood Pressure 120/72 - Labs CBC & Chem 7: 10/07/20 04:23 10/07/20 04:23 Labs: Abnormal Lab Results - Last 24 Hours (Table) 10/06/20 10/06/20 10/06/20 Range/Units 12:02 17:45 21:23 RBC (3.80-5.40) m/uL Hgb (11.4-16.0) gm/dL Hct (34.0-46.0) % MCHC (31.0-37.0) g/dL RDW (11.5-15.5) % Lymphocytes # (1.0-4.8) k/uL Eosinophils # (0-0.7) k/uL D-Dimer (<0.60) mg/L FEU ABG pH (7.35-7.45) ABG pCO2 (35-45) mmHg ABG pO2 (83-108) mmHg ABG Total CO2 (19-24) mmol/L ABG O2 Saturation (94-97) % Sodium (137-145) mmol/L BUN (7-17) mg/dL Creatinine (0.52-1.04) mg/dL POC Glucose (mg/dL) 147 H 146 H 121 H (75-99) mg/dL Lactate Dehydrogenase (313-618) U/L C-Reactive Protein (<1.0) mg/dL Total Protein (6.3-8.2) g/dL Albumin (3.5-5.0) g/dL 10/07/20 10/07/20 10/07/20 Range/Units 00:03 04:23 04:23 RBC 3.11 L (3.80-5.40) m/uL Hgb 8.4 L D (11.4-16.0) gm/dL Hct 27.7 L (34.0-46.0) % MCHC 30.2 L (31.0-37.0) g/dL RDW 16.2 H (11.5-15.5) % Lymphocytes # 0.9 L (1.0-4.8) k/uL Eosinophils # 1.3 H (0-0.7) k/uL D-Dimer 3.15 H (<0.60) mg/L FEU ABG pH (7.35-7.45) ABG pCO2 (35-45) mmHg ABG pO2 (83-108) mmHg ABG Total CO2 (19-24) mmol/L ABG O2 Saturation (94-97) % Sodium (137-145) mmol/L BUN (7-17) mg/dL Creatinine (0.52-1.04) mg/dL POC Glucose (mg/dL) 114 H (75-99) mg/dL Lactate Dehydrogenase (313-618) U/L C-Reactive Protein (<1.0) mg/dL Total Protein (6.3-8.2) g/dL Albumin (3.5-5.0) g/dL 10/07/20 10/07/20 10/07/20 Range/Units 04:23 06:09 06:36 RBC (3.80-5.40) m/uL Hgb (11.4-16.0) gm/dL Hct (34.0-46.0) % MCHC (31.0-37.0) g/dL RDW (11.5-15.5) % Lymphocytes # (1.0-4.8) k/uL Eosinophils # (0-0.7) k/uL D-Dimer (<0.60) mg/L FEU ABG pH 7.25 L (7.35-7.45) ABG pCO2 53 H (35-45) mmHg ABG pO2 63 L (83-108) mmHg ABG Total CO2 25 H (19-24) mmol/L ABG O2 Saturation 88.4 L (94-97) % Sodium 135 L (137-145) mmol/L BUN 26 H (7-17) mg/dL Creatinine 2.59 H (0.52-1.04) mg/dL POC Glucose (mg/dL) 100 H (75-99) mg/dL Lactate Dehydrogenase 955 H (313-618) U/L C-Reactive Protein 22.1 H (<1.0) mg/dL Total Protein 5.1 L (6.3-8.2) g/dL Albumin 2.4 L (3.5-5.0) g/dL Microbiology - Last 24 Hours (Table) 10/02/20 22:55 Blood Culture - Preliminary Blood No Growth after 96 hours 10/04/20 12:30 Blood Culture - Preliminary Blood No Growth after 48 hours 10/04/20 15:35 Gram Stain - Final Sputum Sputum Culture - Final 10/05/20 04:00 Catheter Tip Culture - Preliminary Catheter Tip
[2020-10-07 17:00] LABS: Glucose,Whole Blood 159 mg/dL (75-99)
[2020-10-07] MEDS: NOREPINEPHRINE 8 MG in SODIUM CHLORIDE 0.9% 250 ML IV SCH (20:40)
[2020-10-07 21:45] LABS: Glucose,Whole Blood 104 mg/dL (75-99)
[2020-10-07 23:38] LABS: Glucose,Whole Blood 139 mg/dL (75-99)
[2020-10-08] MEDS: ARTIFICIAL TEARS-HYPROMELLOSE DROPS 15 ML BTL BOTH EYES SCH ×5 (03:41→23:39)
[2020-10-08] MEDS: CISATRACURIUM 200 MG in SODIUM CHLORIDE 0.9% 180 ML IV SCH ×3 (03:46→18:21)
[2020-10-08 04:47] LABS: Basophils # (A) 0.2 k/uL (0-0.2); Basophils % (A) 2 %; Eosinophils # (A) 1.1 k/uL (0-0.7); Eosinophils % (A) 11 %; HCT 28.7 % (34.0-46.0); HGB 9.1 gm/dL (11.4-16.0); Hypochromasia Marked; Lymphocytes % (A) 10 %; MCH 28.4 pg (25.0-35.0); MCHC 31.6 g/dL (31.0-37.0); MCV 89.6 fL (80.0-100.0); Mean Platelet Volume 8.4; Monocytes # (A) 0.5 k/uL (0-1.0); Monocytes % (A) 5 %; Neutrophils % (A) 71 %; Platelet Count 320 k/uL (150-450); Poikilocytosis Slight; RDW 15.8 % (11.5-15.5); WBC 9.9 k/uL (3.8-10.6)
[2020-10-08 05:01] LABS: Albumin 2.6 g/dL (3.5-5.0); Calcium 9.6 mg/dL (8.4-10.2); Potassium 5.3 mmol/L (3.5-5.1); Total Bilirubin 0.4 mg/dL (0.2-1.3); Total Protein 5.6 g/dL (6.3-8.2)
[2020-10-08 05:28] LABS: C Reactive Protein 19.7 mg/dL (<1.0)
[2020-10-08] MEDS: fentaNYL (PF) 2,500 MCG in SODIUM CHLORIDE 0.9% 200 ML IV SCH ×3 (05:28→18:21)
[2020-10-08 06:08] LABS: ABG Base Excess -8.3 mmol/L; ABG HCO3 21 mmol/L (21-25); ABG Oxygen Saturation 98.9 % (94-97); ABG PCO2 59 mmHg (35-45); ABG PO2 201 mmHg (83-108); ABG TCO2 22 mmol/L (19-24)
[2020-10-08 06:21] LABS: ABG PH 7.15 (7.35-7.45); Allen Test Performed? no
[2020-10-08] MEDS: INSULIN ASPART (NovoLOG) 100 UNIT/ML VIAL SQ SCH ×6 (06:23→16:47)
[2020-10-08 06:25] LABS: Glucose,Whole Blood 102 mg/dL (75-99)
[2020-10-08] MEDS ORDERED: SODIUM BICARB 8.4% 50 ML SYR (1 MEQ/ML) IV STA (06:34)
[2020-10-08] MEDS: INSULIN DETEMIR (LEVEMIR) 100 UNIT/ML SYR SQ SCH ×2 (06:59→21:10)
[2020-10-08] MEDS: SEVELAMER 800 MG TAB PO SCH ×3 (06:59→16:45)
[2020-10-08] MEDS: SODIUM BICARBONATE TAB 650 MG TAB PO SCH ×3 (07:49→21:07)
[2020-10-08] MEDS: ASCORBIC ACID 500 MG TAB PO SCH ×2 (07:49→21:07)
[2020-10-08] MEDS: DEXAMETHASONE SOD PHOSPHATE 4 MG/ML 1 ML VIAL IV SCH (07:49)
[2020-10-08] MEDS: CHOLECALCIFEROL 25 MCG (1000 IU) TABLET PO SCH (07:49)
[2020-10-08] MEDS: ZINC SULFATE 220 MG CAP PO SCH (07:49)
[2020-10-08] MEDS: ENOXAPARIN 30 MG/0.3 ML SYRINGE SQ SCH (07:49)
[2020-10-08] MEDS: PANTOPRAZOLE 40 MG/10 ML VIAL IVP SCH (07:50)
--- NOTE | 2020-10-08 07:52 | P.PN ---
Subjective Progress Note Date: 10/08/20 Principal diagnosis: This is a 35-year-old female seen in consultation with acute kidney injury, hemodialysis dependent, etiology is Covid. Remains on 100% FiO2 and currently on norepinephrine. Her blood gases show pH of 7.15 pCO2 59 and pO2 of 201. Vent settings are to be changed Currently she is on daily dialysis, her lungs x-rays show complete white out with bilateral and infiltrates possible pneumonia and/or CHF. She is tolerating dialysis, currently on a ultrafiltration of 2.5 L yesterday without any drop in blood pressure. She is on a very small dose of levo fed currently. Her risk factors for Covid 19 was diabetes and obesity Objective - Vital Signs Vital signs: Vital Signs Temp 97.4 F L 10/08/20 04:00 Pulse 123 H 10/08/20 07:00 Resp 32 H 10/08/20 07:00 BP 86/53 10/07/20 20:00 Pulse Ox 99 10/08/20 07:00 Intake & Output 10/07/20 10/08/20 10/08/20 18:59 06:59 18:59 Intake Total 116.604 1542.267 16.56 Output Total 2500 Balance -2251.201 8088.267 16.56 Intake: IV 156 280 13 0.9 Normal Saline @ KVO 120 244 10 0.9 Normal Saline 36 36 3 Pressure Bag Intake, IV Titration 277.855 4930.267 3.56 Amount Cisatracurium 200 mg In 400 183.187 Sodium Chloride 0.9% 180 ml @ 1 MCG/KG/MIN 7.308 mls/hr IV .Q24H [facility] Rx#: [id number] Norepinephrine 8 mg In 65.002 156.58 3.56 Sodium Chloride 0.9% 250 ml @ 0.05 MCG/KG/MIN 11. 61 mls/hr IV .[id number] [facility] Rx#:[id number] fentaNYL (PF) 2,500 mcg 250 250 In Sodium Chloride 0.9% 200 ml @ Per Protocol IV .Q0M [facility] Rx#:[id number] propofoL 1,000 mg In 100 566.5 Empty Bag 1 bag @ Per Protocol IV .Q0M [facility] Rx#: [id number] Tube Feeding 10 Output: Urine 0 Hemodialysis 2500 Other: Voiding Method Incontinent Incontinent ABP, PAP, CO, CI - Last Documented Arterial Blood Pressure 113/68 On examination currently she is on a prone position on 100% FiO2 Lungs are clear to auscultation fairly good air entry bilaterally Heart sounds were unable to be examined On the monitor she is showing normal sinus rhythm Extremity exam was significant edema 2+ - Labs CBC & Chem 7: 10/08/20 04:34 10/08/20 04:34 Labs: Abnormal Lab Results - Last 24 Hours (Table) 10/07/20 10/07/20 10/07/20 Range/Units 04:23 16:58 21:43 RBC (3.80-5.40) m/uL Hgb (11.4-16.0) gm/dL Hct (34.0-46.0) % RDW (11.5-15.5) % Eosinophils # (0-0.7) k/uL ABG pH (7.35-7.45) ABG pCO2 (35-45) mmHg ABG pO2 (83-108) mmHg ABG O2 Saturation (94-97) % Sodium (137-145) mmol/L Potassium (3.5-5.1) mmol/L Carbon Dioxide (22-30) mmol/L BUN (7-17) mg/dL Creatinine (0.52-1.04) mg/dL Glucose (74-99) mg/dL POC Glucose (mg/dL) 159 H 104 H (75-99) mg/dL Ferritin 2544.2 H (10.0-291.0) ng/mL Lactate Dehydrogenase (313-618) U/L C-Reactive Protein (<1.0) mg/dL Total Protein (6.3-8.2) g/dL Albumin (3.5-5.0) g/dL 10/07/20 10/08/20 10/08/20 Range/Units 23:36 04:34 04:34 RBC 3.20 L (3.80-5.40) m/uL Hgb 9.1 L (11.4-16.0) gm/dL Hct 28.7 L (34.0-46.0) % RDW 15.8 H (11.5-15.5) % Eosinophils # 1.1 H (0-0.7) k/uL ABG pH (7.35-7.45) ABG pCO2 (35-45) mmHg ABG pO2 (83-108) mmHg ABG O2 Saturation (94-97) % Sodium 133 L (137-145) mmol/L Potassium 5.3 H (3.5-5.1) mmol/L Carbon Dioxide 20 L (22-30) mmol/L BUN 29 H (7-17) mg/dL Creatinine 2.44 H (0.52-1.04) mg/dL Glucose 114 H (74-99) mg/dL POC Glucose (mg/dL) 139 H (75-99) mg/dL Ferritin (10.0-291.0) ng/mL Lactate Dehydrogenase 1026 H (313-618) U/L C-Reactive Protein 19.7 H (<1.0) mg/dL Total Protein 5.6 L (6.3-8.2) g/dL Albumin 2.6 L (3.5-5.0) g/dL 10/08/20 10/08/20 Range/Units 06:05 06:23 RBC (3.80-5.40) m/uL Hgb (11.4-16.0) gm/dL Hct (34.0-46.0) % RDW (11.5-15.5) % Eosinophils # (0-0.7) k/uL ABG pH 7.15 L* (7.35-7.45) ABG pCO2 59 H (35-45) mmHg ABG pO2 201 H (83-108) mmHg ABG O2 Saturation 98.9 H (94-97) % Sodium (137-145) mmol/L Potassium (3.5-5.1) mmol/L Carbon Dioxide (22-30) mmol/L BUN (7-17) mg/dL Creatinine (0.52-1.04) mg/dL Glucose (74-99) mg/dL POC Glucose (mg/dL) 102 H (75-99) mg/dL Ferritin (10.0-291.0) ng/mL Lactate Dehydrogenase (313-618) U/L C-Reactive Protein (<1.0) mg/dL Total Protein (6.3-8.2) g/dL Albumin (3.5-5.0) g/dL Microbiology - Last 24 Hours (Table) 10/02/20 22:55 Blood Culture - Preliminary Blood No Growth after 120 hours 10/05/20 04:00 Catheter Tip Culture - Final Catheter Tip 10/04/20 12:30 Blood Culture - Preliminary Blood No Growth after 72 hours Assessment and Plan Assessment: Impression 1. Acute kidney injury secondary to COVID-19 pneumonia, currently hemodialysis dependent and anuric, getting dialysis daily. Yesterday she was dialyzed 20 half liters taken off. She remained stable on dialysis 2. Ventilator-dependent respiratory failure on 100% FiO2, FiO2 to be readjusted down as her pO2 is 201 , pH of 7.15 pCO2 59, respiratory acidosis 3. Diabetes mellitus and obesity 4. AFebrile, for the last 24 hours 5. Anemia hemoglobin is 8.4 > 10.1 5. Edema. Recommendation. 1. Will plan to dialyze her daily, will again attempt ultrafiltration of 3 L today for 4 hours
[2020-10-08] MEDS: ALBUTEROL HFA INHALER INHALATION SCH ×4 (07:53→19:18)
[2020-10-08] MEDS: SYMBICORT 160-4.5 MCG INHALER INHALATION SCH ×2 (07:53→19:18)
--- NOTE | 2020-10-08 10:33 | P.PN ---
Progress Note - Text Progress Note Date: 10/08/20 Patient remains clinically unchanged. Tracheostomy site is clean. It is clean. She'll continue receive supportive care.
--- NOTE | 2020-10-08 11:14 | P.PN ---
Subjective Progress Note Date: 10/08/20 HISTORY OF PRESENT ILLNESS 35-year-old female patient of Dr. Arroyo with past medical history of type 2 diabetes comes in with acute shortness of breath associated with high light s ugars. Patient on admission was found to have a fever of 101.5 pulse rate 125 respiratory rate 20. Blood pressure 132/106. On chest x-ray obtained in the ER suggestive of bilateral infiltrates concerning for call with pneumonia. COVID PCR was positive. On admissions patient had an ABG with a pH of 7.14 pCO2 of 20, pO2 of 59, bicarb of 7. Patient's blood sugar on admission was 424 on assessment today patient's blood work patient had a sodium 135 potassium 5.4 chloride 123 bicarb less than 5 and creatinine 0.73. D-dimer was elevated on admission patient 9 28 patient given 1 L of IV fluids followed by normal saline running at 200 mL/h. Patient was positive for acetone on admission. She will anion gap closed and was switched to D5NS. Insulin drip was continued during the night and was switched to patient's home medication this morning. One dose of remdesiver was ordered. Apparently around noon, A- team was called on the patient secondary to hypoxia patient's oxygen saturation dropped to the 70s and 80s on 100% nonrebreather. Patient was switched to BiPAP on 18/12 and is doing better o FiO2 of 80%. ABG was obtained and ph was 7. 14 pCO2 of 28 bicarb of 7 pO2 of 17. Patient noted to have uncompensated metabolic acidosis with compensated respiratory alkalosis. Stat dose of 1 amp bicarb was given and followed by sodium bicarbonate drip. Insulin drip restarted. Patient's initiated on dexamethasone 6 mg IV twice a day. Potassium phosphate ordered as phosphorus is low. Patient's repeat blood gases suggest a pH of 7.25, CO2 32 pO2 of 72 bicarb 14. I will not normal saline at 100 mL/h as patient's anion gap has increased. Patient given 1 dose of 2 mg of morphine with improvement in respiratory rate. One dose of Ativan 0.5 mg was given. Xanax 0.25 twice a day along with Ativan 0.5 IV every 6 hours ordered for the patient. Vitals were evaluated patient pulse 129 [id number]. She was moved to the ICU. Precedex drip was initiated. Lopressor was initiated at 25 twice a day. Metoprolol tartrate 5 mg IV every 6 hours. Systolic blood pressure more than 160. Started chest x-ray was obtained and suggest stable bilateral consolidation suggestive of COVID-19 pneumonia. 09/12 patient is seen in the ICU is currently mechanically ventilated and sedated on vent settings of respiratory rate 36, tidal volume 375 FiO2 80% PEEP of 18.. Vital signs reviewed patient had a temp of 100.4 pulse 150 respiratory rate 36 oxygen saturation 95% on 80% on fio2 .'s labs are reviewed which patient had a d-dimer 1.84 that is increased to 14.3. Arterial Blood gas suggest ph 7.35, CO2 40, po2 62, . Her BMP suggest a sodium 135 potassium 3.7 chloride 112 bicarb 21 creatinine 1.57 for calcitonin is 3.5 CRP is increased from 8.78.2 LDH is increased to 2614. Patient remains on Pneumovax, propofol drip. Lovenox increased to 50 subcu twice a day. Patient received 2 L of IV fluids. Continue IV fluids at 100 mL/h. Bicarb drip discontinued patient initiated on Zosyn 3.375 every 8 hours. Continue insulin drip at 4 units per hour. Patient is currently in prone positioning 09/13: Patient evaluated in the ICU remains on Ventilation continues to be sedated, in prone position. Vent settings are respiratory rate 36, tidal vital 375, FiO2 70% PEEP of 18. ABG shows pO2 of 82, PCO2 of 39, pH is 7.19. Latest labs show WBC 11.1, hemoglobin 13.2, d-dimer still pending, but yesterday was up to 14.3. Creatinine up to 3.4, BUN 24 sodium 137, potassium 4.0. Patient's urine output has been low, nephrology on consult. Bicarb drip increased to 100 miles an hour, receiving another liter of normal saline, she did have a ultrasound that showed unremarkable bilateral kidneys. Repeat chest x-ray showed bilateral lung infiltrates that are stable. Anion gap has closed, will start Lantus 10 units at at bedtime Novolog every 6 hours. 09/14: Patient is seen in the ICU, still currently mechanically ventilated and sedated. She continues in the prone position. Her oxygen quickly drops if she is not in prone. Patient's kidney function has worsened. Laboratory values show creatinine of 4.87, BUN 33, LDH 2191, C-reactive protein 2.7. ABG shows pH 7.32, pO2 of 60, pCO2 43. Patient is making almost no urine overnight. Nephrology is following patient continues on cefepime for urinary tract infection, culture is still pending. Vascular has been consulted for placement of temporary hemodialysis catheter for plans for dialysis. 09/15: Patient evaluated in the ICU, continues to be mechanically ventilated and sedated on assist control ventilation rate of 36, tidal volume 375, FiO2 100% and PEEP of 18. ABG today shows pO2 58, pCO2 of 45, and pH 7.35. She continues on tube feedings. Yesterday patient underwent ultrasound-guided right internal jugular non-tunneled hemodialysis catheter placement. Patient underwent hemodialysis treatment last night and plans have another hemodialysis treatment today. She continues to make almost no urine. She continues on cefepime for antibiotic coverage, and continues on Decadron and Lovenox. 09/16: Patient seen on follow-up remains in the ICU mechanically ventilated and sedated. She continues on assist control rate of 36, tidal volume 375, FiO2 100% and PEEP of 20. PEEP had to be increased due to patient had to be in supine position for dialysis, will go back to prone position once dialysis is complete. ABG shows pH 7.32, pCO2 49, PaO2 61. Laboratory values showed WBC 11.2, hemoglobin 11, sodium 134, creatinine 4.44, BUN 38. Urine culture shows no growth, blood cultures show no growth to date. Repeat chest x-ray shows bilateral pleural effusions, correlate for ARDS, pulmonary edema, diffuse pneumonia, findings are stable from last exam. Patient does not require any pressors, blood pressure 133/57, heart rate 78. 5/16: Patient was evaluated in the ICU today for follow-up. She continues to be intubated and on mechanical ventilation. Current vent settings are tidal volume 375, FiO2 100% and PEEP of 20. ABG shows pH 7.37, pCO2 40, pO2 102. She continues with intermittent prone positioning. Patient continues to have almost no urine output, maintained on dialysis. Patient received dialysis yesterday without complication. Laboratory values revealed WBC 10.3, hemoglobin 10.4, sodium 132, potassium 3.1, BUN 33, creatinine 4.29, LDH 1913, C-reactive protein 1.3. Urine and sputum cultures are negative, blood cultures show no growth to date. Consult placed to dietary to start TPN[ ] 09/18: She remains in the intensive care unit intubated and on mechanical ventilation with tidal volume 375, FiO2 60 and PEEP of 20. Patient is being prone to daily at approximately 16 hours per day. Pulmonary medicine has added in Dr. Zhang to do PEG tube and trach today. Patient is not on vasopressors. Repeat blood work reveals WBC 12.6, hemoglobin 9.8, platelet count 212. Sodium 133, potassium 3.2, chloride 102, CO2 21, BUN 35 and creatinine 4.12. Blood sugar 126. Patient underwent hemodialysis yesterday with removal of 2 L and is scheduled again today with goal of 2-3 L and is scheduled again tomorrow. 09/19: She is scheduled for hemodialysis today and is off fentanyl temporarily. Patient is status post trach and PEG tube yesterday. And she remains on mechanical ventilation. Pulse ox 93-95%. She has been afebrile, heart rate 64, respiratory rate 36, blood pressure 115/50. Fentanyl is off to improve blood pressure for hemodialysis which is scheduled for today. Contacted vascular surgery about permanent hemodialysis catheter. Repeat blood work reveals WBC 14.3, hemoglobin 9.6, platelet count 200. D-dimer 6.48. LDH 1686. C-reactive protein 1.1. BUN 34 creatinine 3.81. Sodium 130, potassium 3.5, chloride 101, CO2 18. Blood sugars running between 101 198. Plan is to wean off Pneumovax today. Patient remains on insulin drip. Repeat chest x-ray reveals bilateral multifocal confluent opacities consistent with COVID-19. Some improved aeratio n periphery of the left lung and worsening opacities throughout the right lung. 09/20: She remains in the intensive care unit on mechanical ventilation. She has been afebrile, heart rate 65, respiratory rate 37, blood pressure 121/70, pulse ox 91-99%. Repeat blood work reveals WBC 14.5, hemoglobin 9.1, platelet count 216. D-dimer 6.13. Sodium 133, potassium 3.1, chloride 102, CO2 18, BUN 35 and creatinine 4.27. Blood sugars running between 128 and 143. LDH 1717. C- reactive protein 1.7. Patient remains on insulin drip which will be transitioned to NovoLog scale every 6 hours. Patient is scheduled for permanent hemodialysis catheter placement today with vascular surgery. Repeat chest x-ray reveals stable diffuse bilateral interstitial and airspace disease. Possible small right effusion. His work is following for transfer to [facility] facility. Do not anticipate discharge until next week. 09/21: Patient is undergoing hemodialysis. She remains on mechanical ventilation with tidal volume 375, FiO2 down to 45 and PEEP was decreased to 15. Patient is continued on propofol, fentanyl drips. She is on tube feedings at goal. Patient was taken off insulin drip yesterday and on scale only but blood sugars are running in the 200s, Levemir scheduled at bedtime will be added. Other blood work reveals WBC 13.3, hemoglobin 8.7, platelet count 192. Sodium 137, potassium 3.6, chloride 107, CO2 18, BUN 34 and creatinine 4.21. Repeat chest x-ray is stable. 09/22: She remains in the intensive care on mechanical ventilation with tidal volume 375, FiO2 of 50 and PEEP of 10. Pulse ox is running 96%. She is afebrile, heart rate in the 50s, respiratory rate 36, blood pressure 100/64. Repeat blood work reveals WBC 16.5, hemoglobin 8.9, platelet count 213. Sodium 134, potassium 3.7, chloride 103, CO2 21, BUN 34 and creatinine 3.89. Blood sugars running in the 200s to 324. Levemir increased to 16 units at bedtime and continue NovoLog scale every 6 hours. Patient is on tube feedings at goal. She has a Haley catheter in with a scant amount of dark/brown urine. Fecal management system is in place. Repeat chest x-ray reveals diffuse bilateral airspace infiltrates persist unchanged. Patient is scheduled for hemodialysis tomorrow morning on Friday. 09/23: Patient remains on mechanical ventilation with tidal volume 3.75, FiO2 50 and PEEP of 10. child monitor sinus rhythm. She has no urine output. Fecal management system is in place. She is undergoing dialysis at this time with plan for removal of 2-1/2 L. She has been afebrile, heart rate in the 50s, respiratory rate 36, blood pressure 108/76 and pulse ox 89%. WBC 13.6, hemoglobin 9.1, platelet count 194. Sodium 136, potassium 3.0 and was replaced, chloride 106, CO2 21, BUN 49 creatinine 5.31. Blood sugars are running between 182 and this morning 194. Patient was still in the 200s and 300s. Levemir last evening was increased to 16 units. Patient remains on propofol and fentanyl drips. Lovenox was increased to 60 mg twice daily. 09/24: PEEP was increased today to 20, tidal volume is at 375 and FiO2 of 50%. Patient has been afebrile. She has been started on levo fed. Repeat chest x- ray reveals bilateral multifocal confluent opacities consistent with Covid 19 or ARDS redemonstrated. Nephrology will plan dialysis for tomorrow for 3 L. Patient remains on propofol fentanyl and Nimbex. WBC 12.5, hemoglobin 9.8, platelet count 161. D-dimer 13.3. Sodium 132, potassium 3.4, chloride 102, CO2 20, BUN 48 and creatinine 4.67. Blood sugars extremely elevated to 96-409. LDH 2217. 09/25: Patient remains in the intensive care unit on mechanical ventilation with tidal volume 375, FiO2 50 and PEEP of 20. Patient is afebrile, heart rate 61, respiratory rate 36, blood pressure 102/56, pulse ox 97%. Repeat blood work reveals WBC 9.3, hemoglobin 8.5 and platelet count 171. Sodium 130, potassium 3.7, chloride 100, CO2 20, BUN 61 creatinine 5.65. Blood sugars have been elev ated up to 455. Levemir increased to 20 units twice daily, NovoLog 5 units every 6 hours and continue NovoLog scale. Patient is scheduled for hemodialysis today. Repeat chest x-ray reveals bilateral multifocal and confluent opacities. Decadron and Lovenox dosing change by pulmonary. Patient is off norepinephrine. 09/26: Patient remains in the intensive care unit on mechanical ventilation with tidal volume 375, FiO2 50 and PEEP of 15. She has been afebrile, heart rate 91, blood pressure 114/68, pulse ox 99%. child monitor sinus rhythm. 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 Sodium 134, potassium 3.6, chloride 102, CO2 22, BUN 41 creatinine 4.21. Patient has improved blood sugars this morning running 150s and 160s. Diabetic medications were adjusted yesterday. Patient is awake and alert and interacting. Yesterday, patient had PICC line inserted by interventional radiology. Repeat chest x-ray reveals diffuse airspace infiltrates in both lung ann appear to progress slightly in the interval. 09/27: Patient remains in intensive care unit on mechanical ventilation with improvement of settings with tidal volume 375, FiO2 decreased to 40 and PEEP decreased to 10. Patient is on hemodialysis every other day and plan to remove 3 L today. Patient is more awake and alert. She is slow to respond but is able to follow simple commands. Blood sugars are running between 84 and 123. Repeat blood work reveals WBC 7.1, hemoglobin 8.1, platelets 152. Sodium 135, potassium 3.6, chloride 103, CO2 21, BUN 53 and creatinine 5.88. Repeat chest x-ray revealed cardiomegaly and pulmonary edema. Patient is on tube feedings:. Patient is not require vasopressors and is off sedation. Fecal management system remains in place for brown liquid stool. C. difficile was negative. 09/28: Patient remains on mechanical ventilation with tidal volume 375, FiO2 increased to 80 and PEEP increased to 18. Patient had a rough night was very anxious, no pain. Xanax 0.25 mg 3 times daily was added. There is concern for pulmonary embolism for which patient was started on heparin drip, she is unable to undergo CAT scan. Venous Doppler bilateral lower extremities was nondiagnostic due to extensive edema in obese patient but minimal imaging of the popliteal veins does show flow. Repeat echocardiogram has been ordered. Cefepime has also been ordered at 1 g IV piggyback every 24 hours as well as vancomycin, pharmacy dosing. Patient is back on fentanyl drip, propofol drip and norepinephrine. Blood sugars are elevated and insulin Levemir will be i ncreased to 25 mg twice daily. Ferrlecit infusion has been ordered by nephrology for 4 days. Patient is undergoing hemodialysis today.temperature max 100.2, heart rate 134, respiratory rate 34, blood pressure 120/65, pulse ox 94%. child monitor is sinus tachycardia. Repeat blood work reveals WBC 16.9, hemoglobin 9.7, platelet count 216. D-dimer 8.81. Sodium 134, potassium 3.8, chloride 99, CO2 25, BUN 43 and creatinine 5.36. Blood sugars in the 200s. AST 40. 09/29 Patient had declined more last 48 hours require more sedation, patient is doing hemodialysis, respiratory failure is quite bit worse this time. Patient was inquired the pain is well back on fentanyl drip. Her vent set up with PEEP is limited but higher. No new finding on culture and her chest x-ray continues shows diffuse infiltrate persistent although there is a moderate interval improvement. 09/30 patient's was seen and evaluated. PEEP was reduced to 11 as patient is maintaining good saturation at the current vent settings. 10/01 patient was seen at bedside. She is currently on assist control rate of 28 white tidal volume 350 FiO2 50% and PEEP of 10 which has been reduced by pulmonary as patient name cleaning her oxygen saturation. Arm blood gas was obtained with a pH of 7.35 pCO2 37 pO2 of 63. She remains hemodynamically stable with no need for pressors. Labs were reviewed patient's BUN is 29 crea tinine 3.93 glucose 122 albumin 2.2 sodium 131 chloride 19 hemoglobin is downtrending with a Hb of 7.3 no leukocytosis 7.1. Patient's urine output is minimal at this time. Her rate has increased to 129 and is currently on positive fluid balance even with dialysis. Last dialysis was done yesterday. Continue enteral feeding currently at goal. Antibiotic has been discontinued and continues to remain on DEXA methicillin 4 mg IV daily. 10/02 patient continues to be on trach support with mechanical ventilation. Patient was evaluated by ios programmer and was switched to VC control as patient was noted to be double stacking on and off throughout the night. Respiratory rate continue to 28 tidal volume increased to 400 with a PEEP for Dr. Downey. Patient is maintaining oxygen saturation 91% on the current setting. According to the nurse bedside patient saturation drops significantly or she is moved or her sedation is dropped. Patient is currently on propofol drip, fentanyl drip. She did underwent dialysis today and was able to maintain her low pressure without the need of pressors. Labs reviewed today suggest a WBC of 6.7 hemoglobin of 7.0 and d-dimer 3.9 bicarb 17 BUN 38 creatinine 4.8. LDH is 964. Sodium 1:30 likely secondary to volume overload. Urine sodium and urine osmolality ordered. Patient's glucose this morning is 146. Continue to remain on enteral feeding. Urine output is reduced. Fall catheter will be placed today. Continue to remain on dialysis. 10/03: Patient remains on mechanical ventilation and is back on propofol and fentanyl drips. Patient is currently on VC control with tidal volume 400, FiO2 55 and PEEP of 12. Patient still is not making any urine and is dialysis dependent with next treatment planned for tomorrow with removal of 3-3-1/2 L. PEG tube feedings are at goal. Fecal management system remains in place. At the time of evaluation, patient is off levophed. Repeat chest x-ray reveals stable diffuse bilateral airspace disease correlate for ARDS, pulmonary edema or diffuse pneumonia. Temperature max last evening was 101. Temperature currently 99, heart rate 106, respiratory rate 32, blood pressure 101/50, pulse ox 86%. Repeat blood work reveals WBC 6, hemoglobin 7.4, platelet count 160. D-dimer 4.05. Sodium 133, potassium 3.5, chloride 100, CO2 23, BUN 31 creatinine 3.8. Blood sugars are running between 100 and 170. Ferritin 1514. Liver function test normal. LDH 1016, C-reactive protein 13.6. Prognosis remains guarded. 10/04: Patient remains intubated on mechanical ventilation with tidal volume 400, FiO2 65, PEEP of 14. Patient continues to run fevers and repeat blood culture and urine and urine culture ordered for today. Haley catheter has been removed this patient has no significant urine output at about 20 mL per shift. BladderScan is monitored for greater than 300 and the patient is straight cathed. Hemoglobin is 6.8 and she has been ordered 41 unit of packed RBCs today. She is currently on propofol and fentanyl drips. She is scheduled for hemodialysis today. WBC 4.5, hemoglobin 6.8, platelet count 151. D-dimer 3.28. Sodium 132, potassium 4.1, chloride 100, CO2 22, BUN 37 creatinine 4.74. Blood sugars running between 97 and 110. Ferritin 1801. LDH 859. C-reactive protein 14.4. Chest x-ray reveals correlate for pneumonia, edema, ARDS. Prognosis remains guarded. 10/05: Patient remains in intensive care unit currently on mechanical ventilation with tidal volume 400, FiO2 was increased to 100 and PEEP is at 14. She continues to run fevers which have worsened with temperature max 103.1. She has been tachycardic in the 130s, blood pressure is marginal but not on vasopressors. Pulse ox currently 92%. Repeat blood work reveals WBC 5.5, hemoglobin 7.6, platelet count 190. D-dimer 2.7, ferritin 1770, LDH 932, C- reactive protein 21.4. Blood sugars are running between 100 1669. Electrolytes are normal. BUN 27 and creatinine 3.79. Pancultures were done yesterday including a straight cath for urine culture, sputum culture and blood culture. Arterial line was removed as well as midline. She is currently on propofol, fen tanyl and started on Nimbex today. 10/06: Patient remains in the intensive care unit. Today patient in prone position and remains on mechanical ventilation with tidal volume 350, FiO2 65 and PEEP of 14. Her last documented fever was yesterday at 2 PM. Heart rate is in the 120s, respiratory rate 32, pulse ox 88-92%. CBC is unremarkable. Electrolytes are normal. BUN 30 creatinine 2.93. Blood sugars are running between 135 and 164. Cultures from October 04: Blood culture no growth, sputum culture finalized, urine culture finalized. Catheter tip culture is in process. Repeat chest x-ray shows bilateral interstitial infiltrates. Patient is on tube feedings of Nepro at goal of 30 ML's per hour. Patient underwent dialysis yesterday and is scheduled for repeat dialysis today. 10/07: Patient maintains in the intensive care unit intubated and on mechanical ventilation. She is receiving hemodialysis this morning has been every day. Plan is to remove 2-1/2 L today. Vent settings have changed today with tidal volume 350, FiO2 was increased to 100% and PEEP remains at 14. She has been continued on Nimbex, fentanyl, norepinephrine and propofol. Plan is to prone position patient following dialysis. Repeat chest x-ray reveals worsening interstitial infiltrates. BUN is 26 and creatinine 2.59. LDH 955, C-reactive protein 22.1. Prognosis remains poor. 10/08: Patient remains in intensive care unit intubated and on mechanical ventilation with tidal volume 350, FiO2 60, PEEP of 14. She is pronating today. She is scheduled for hemodialysis on a daily basis. She has been afebrile, heart rate 112, respiratory rate 36, blood pressure 161/88, pulse ox 93%. Repeat blood work reveals WBC 9.9, hemoglobin 9.1, platelet count 320. Sodium 133, potassium 5.3, chloride 100, CO2 20, BUN 29 creatinine 2.44. Blood sugar running between 102 and 139. LDH 1026, C-reactive protein 19.7. REVIEW OF SYSTEMS Unable to obtain due to mechanical ventilation. PHYSICAL EXAMINATION Gen: This is is a 35-year-old black female, patient is intubated and on mechanical ventilation, appears to be comfortable. Patient is in prone position. HEENT: Head is atraumatic, normocephalic. NEUROLOGICAL: Patient is sedated. Full physical examination deferred to ios programmer due to Covid 19 and intubation. ASSESSMENT AND PLAN 1. Acute hypoxic respiratory failure secondary to Covid 19 pneumonia and possible bacterial pneumonia. Patient was intubated on September 11. She is status post 1 dose of Remdesivir and 1 dose of Tocilizumab. Continue Ventolin inhaler 4 times daily, Symbicort twice daily, Decadron 4 mg IV daily, Lovenox 30 mg subcu daily, supplements. Status post PEG tube and trach. 2. Acute diabetic ketoacidosis secondary to Covid 19 pneumonia, uncontrolled with hyperglycemia. Levemir 25 units twice daily, scheduled NovoLog 5 units every 6 hours and NovoLog scale. 3. Metabolic encephalopathy secondary to Covid 19 and DKA. 4. Sepsis and septic shock secondary to Covid 19 pneumonia with multiorgan failure. Continue as in #1. 5. Acute metabolic acidosis secondary to acute DKA, Covid 19 and acute kidney injury. Sodium bicarb 650 mg 3 times daily. 6. Diabetes mellitus type 2 uncontrolled with A1c 13.6. Continue as above. 7. Hypophosphatemia status post replacement. 8. Hyperkalemia secondary to DKA, resolved. 9. Sinus tachycardia secondary to sepsis, volume deficiency.Continue Lopressor 25 mg twice daily. 10. Acute kidney injury secondary to ATN secondary to Covid 19 and DKA. Patient continued on hemodialysis. Permanent dialysis catheter placed. 11. Possible acute gram-negative pneumonia versus MRSA pneumonia. Completed course of antibiotics. 12. Hypertension. 13. Morbid obesity with BMI of 53. 14. DVT prophylaxis. Lovenox. 15. GI prophylaxis. Protonix 40 mg IV push daily. CODE STATUS: Full code Prognosis poor. DISCHARGE PLAN Certified Anesthesiologist Assistant Acute Care Impression and plan of care have been directed as dictated by the signing physician. Kimberly Boswell nurse practitioner acting as scribe for signing physician. Objective - Vital Signs Vital signs: Vital Signs Temp 97.4 F L 10/08/20 04:00 Pulse 123 H 10/08/20 07:00 Resp 32 H 10/08/20 07:00 BP 86/53 10/07/20 20:00 Pulse Ox 99 10/08/20 07:00 Intake & Output 10/07/20 10/08/20 10/08/20 18:59 06:59 18:59 Intake Total 275.671 5168.267 126.56 Output Total 2500 Balance -5579.298 1323.267 126.56 Intake: IV 156 280 23 0.9 Normal Saline @ KVO 120 244 20 0.9 Normal Saline 36 36 3 Pressure Bag Intake, IV Titration 533.426 8551.267 103.56 Amount Cisatracurium 200 mg In 400 183.187 Sodium Chloride 0.9% 180 ml @ 1 MCG/KG/MIN 7.308 mls/hr IV .Q24H [facility] Rx#: [id number] Norepinephrine 8 mg In 65.002 156.58 3.56 Sodium Chloride 0.9% 250 ml @ 0.05 MCG/KG/MIN 11. 61 mls/hr IV .U12P00H [facility] Rx#:[id number] fentaNYL (PF) 2,500 mcg 250 250 In Sodium Chloride 0.9% 200 ml @ Per Protocol IV .Q0M [facility] Rx#:[id number] propofoL 1,000 mg In 100 566.5 100 Empty Bag 1 bag @ Per Protocol IV .Q0M [facility] Rx#: [id number] Tube Feeding 10 Output: Urine 0 Hemodialysis 2500 Other: Voiding Method Incontinent Incontinent ABP, PAP, CO, CI - Last Documented Arterial Blood Pressure 113/68 - Labs CBC & Chem 7: 10/08/20 04:34 10/08/20 04:34 Labs: Abnormal Lab Results - Last 24 Hours (Table) 10/07/20 10/07/20 10/07/20 Range/Units 04:23 16:58 21:43 RBC (3.80-5.40) m/uL Hgb (11.4-16.0) gm/dL Hct (34.0-46.0) % RDW (11.5-15.5) % Eosinophils # (0-0.7) k/uL ABG pH (7.35-7.45) ABG pCO2 (35-45) mmHg ABG pO2 (83-108) mmHg ABG O2 Saturation (94-97) % Sodium (137-145) mmol/L Potassium (3.5-5.1) mmol/L Carbon Dioxide (22-30) mmol/L BUN (7-17) mg/dL Creatinine (0.52-1.04) mg/dL Glucose (74-99) mg/dL POC Glucose (mg/dL) 159 H 104 H (75-99) mg/dL Ferritin 2544.2 H (10.0-291.0) ng/mL Lactate Dehydrogenase (313-618) U/L C-Reactive Protein (<1.0) mg/dL Total Protein (6.3-8.2) g/dL Albumin (3.5-5.0) g/dL 10/07/20 10/08/20 10/08/20 Range/Units 23:36 04:34 04:34 RBC 3.20 L (3.80-5.40) m/uL Hgb 9.1 L (11.4-16.0) gm/dL Hct 28.7 L (34.0-46.0) % RDW 15.8 H (11.5-15.5) % Eosinophils # 1.1 H (0-0.7) k/uL ABG pH (7.35-7.45) ABG pCO2 (35-45) mmHg ABG pO2 (83-108) mmHg ABG O2 Saturation (94-97) % Sodium 133 L (137-145) mmol/L Potassium 5.3 H (3.5-5.1) mmol/L Carbon Dioxide 20 L (22-30) mmol/L BUN 29 H (7-17) mg/dL Creatinine 2.44 H (0.52-1.04) mg/dL Glucose 114 H (74-99) mg/dL POC Glucose (mg/dL) 139 H (75-99) mg/dL Ferritin (10.0-291.0) ng/mL Lactate Dehydrogenase 1026 H (313-618) U/L C-Reactive Protein 19.7 H (<1.0) mg/dL Total Protein 5.6 L (6.3-8.2) g/dL Albumin 2.6 L (3.5-5.0) g/dL 10/08/20 10/08/20 Range/Units 06:05 06:23 RBC (3.80-5.40) m/uL Hgb (11.4-16.0) gm/dL Hct (34.0-46.0) % RDW (11.5-15.5) % Eosinophils # (0-0.7) k/uL ABG pH 7.15 L* (7.35-7.45) ABG pCO2 59 H (35-45) mmHg ABG pO2 201 H (83-108) mmHg ABG O2 Saturation 98.9 H (94-97) % Sodium (137-145) mmol/L Potassium (3.5-5.1) mmol/L Carbon Dioxide (22-30) mmol/L BUN (7-17) mg/dL Creatinine (0.52-1.04) mg/dL Glucose (74-99) mg/dL POC Glucose (mg/dL) 102 H (75-99) mg/dL Ferritin (10.0-291.0) ng/mL Lactate Dehydrogenase (313-618) U/L C-Reactive Protein (<1.0) mg/dL Total Protein (6.3-8.2) g/dL Albumin (3.5-5.0) g/dL Microbiology - Last 24 Hours (Table) 10/02/20 22:55 Blood Culture - Preliminary Blood No Growth after 120 hours 10/05/20 04:00 Catheter Tip Culture - Final Catheter Tip 10/04/20 12:30 Blood Culture - Preliminary Blood No Growth after 72 hours
[2020-10-08 11:43] LABS: Glucose,Whole Blood 132 mg/dL (75-99)
--- NOTE | 2020-10-08 12:59 | P.PN ---
Subjective Progress Note Date: 10/08/20 Principal diagnosis: Acute hypoxic respiratory failure secondary to COVID-19 pneumonia and ARDS secondary to COVID-19 pneumonia This is a 55-year-old -[place] female with history of type 2 diabetes, admitted today through the emergency room with a few days' history of increased shortness of breath, cough, fever, chest x-ray in the ER showed bilateral infiltrates consistent with COVID-19 pneumonia in the patient had positive PCR for COVID-19 infection. Patient had significantly abnormal labs on admission, she had an extremely low bicarb, extremely low pH, and marginal oxygenation at best. Patient was admitted to the regular medical floor, and I happened to be rounding on that same floor were and I was notified about this patient having worsening respiratory distress. Evaluated the patient, clearly the patient has DKA and she clearly has acute hypoxic respiratory failure secondary to COVID-19 pneumonia. As soon as I laid eyes on the patient, recommended immediate transfer to the ICU. Patient was placed on BiPAP however she did not tolerate BiPAP well, and when I went back to evaluate the patient in the ICU, she was basically deteriorating, and she was using her accessory muscles, patient was in severe respiratory distress. Hence I recommended immediate intubation and placement on mechanical ventilation. Chest x-ray continued to show bilateral in filtrates consistent with worsening COVID-19 pneumonia ABG showed a pO2 of 59 pCO2 of 42 pH of 7.05 and this was on the 100% FiO2 20 of PEEP tidal volume of 375 rate of 36. Patient will be given more bicarb and she is already on a bicarb drip. She is receiving insulin and she is also receiving IV fluids in the form of 0.9 normal saline. Sugars were 384. Inflammatory markers were added to be extremely high, LDH 8, and C-reactive protein of 8.7. D-dimer was borderline elevated at 1.84. On 09/12/2020 patient seen in follow-up in the intensive care unit, yesterday she was emergently transferred to the intensive care and intubated and placed on mechanical ventilator. She remains intubated, sedated on mechanical ventilator, currently on assist control mode of ventilation with a rate 36, tidal vital 375, FiO2 100% and PEEP of 20. This might blood gas reveals pO2 of 62, pCO2 40, pH of 7.35 this was done on FiO2 of 80%, her peak airway pressure is 35, in her plateau pressure is around 32. she is sedated on Diprivan and 60 mics per kilo per minute, 0.9 normal saline at 100 ML per hour, insulin drip is at 4 units per hour, and she has 5% dextrose with 3 units of bicarbonate at 100 ML per hour. Today's labs have been reviewed, showing white blood cell count 10.3, hemoglobin of 14.4, d-dimer has increased to 14.31, and her Lovenox was adjusted and increased to 50 mg twice daily, sodium is 137, potassium is 3.7, chloride is 112, CO2 is up to 21, BUN of 16 creatinine is 1.57, LDH is 2618, CRP is 18.2. Pro-Calcitonin level came back elevated at 3.53, suggesting possibility of bacterial infection She received a liter bolus yesterday after intubation. We will give the patient additional fluid boluses today. Sputum culture has been sent and is pending, blood cultures have been sent. Patient has been placed in prone position at 8:00 last night, and her oxygenation seems to be improved and she satting 97% on 100% FiO2 and subsequently FiO2 was dropped down to 80%, and PEEP is down to 18. She remains in prone positioning, tolerating it well, she is having low-grade fevers, she is in sinus mechanism with tachycardic on the monitor, not requiring any vasopressor support right now, will start tube feedings today when the patient is placed back over in the supine position On 09/13/2020 patient seen in follow-up in intensive care unit, she remains proned, and at the time of our evaluation patient has already been prone for close to 16 hours and is about to be turned back on her spine. She tolerates prone position quite well, she remains intubated, paralyzed and sedated on mechanical ventilator, current vent settings are assist-control mode of ventilation with a rate of 36, tidal volume 375, FiO2 of 70% and PEEP of 18, this point his blood gases show pO2 of 82, pCO2 of 39, and pH of 7.19. She's currently on D5 W with 3 A of bicarbonate at 75 per hour, Diprivan is a 60 mics per kilo per minute, index is at 2 mics per kilo per minute, and insulin drip is at 6 units per hour, patient has not started tube feedings yet. She is in sinus mechanism, hemodynamically stable, not requiring any vasopressor support. Today's chest x-ray has been reviewed showing bilateral lung infiltrates that appear to be stable. Today's labs have been reviewed showing white blood cell count of 11.1, hemoglobin 13.2, d-dimer is pending, yesterday his d-dimer was 14.3, patient's Lovenox dose was increased to 50 mg every 24 hours. Her renal function continued to worsen, and her creatinine is up to 3.4 on today's labs, BUN is 24, were bicarb concentration is only 13 on today's labs, sodium is 137, potassium is 4.0. AST is up to 77, ALT and alk phos are within normal limits, yesterday set him inflammatory markers with showing up trending LDH at 2618, and CRP of 18.2. Her pro-calcitonin level was increased yesterday at 3.53 and we added empiric antibiotics in the form of Zosyn. Sputum culture has been sent and has shown no growth. Overnight patient remained oliguric, yesterday we gave her additional fluids, however did not improve her renal function and her kidney function continued to get worse. Nephrology consultation has been requested, she has only been producing urine in the order of 5-10 ML per hour, renal ultrasound has been obtained showing no evidence of hydronephrosis bilaterally. On 09/14/2020 patient seen in follow-up in intensive care unit, she remains intubated, sedated and paralyzed, currently on assist control mode of ventilation with a rate of 36, tidal vital 375, FiO2 of 60% and PEEP of 18. This morning's blood gas was reviewed showing pO2 of 60, pCO2 of 43, and pH of 7.32. This was done on FiO2 of 70%, her peak airway pressure is 40, plateau pressures 26. She is currently on D5 with 3 A of bicarbonate at 100 ML per hour , insulin drip is at 7 units per hour, fentanyl drip is a 0.5 mics per kilo per hour, Diprivan and is at 50 mics per kilo per minute, and index is at 2 mics per kilo per minute. She is tolerating tube feedings of vital high-protein at 27 with a goal 27 standard water flushes. Today's chest x-ray has not been completed yet, because the patient has been in prone position for last 16 hours. Patient tolerates prone in quite well, and her oxygenation improves when she is in prone position. However when she is turned over in the supine position to complete chest x-rays and ADL's, patient's O2 sat drops down to low 80s and her FiO2 requirement increases at that time. Today's labs have been reviewed, and there has been further worsening of her renal function, and patient has made almost no urine overnight. Her BUN is 33, and creatinine is 4.87, nephrology is following, her renal ultrasound showed no evidence of hydronephrosis. Her urinalysis showed possibility of urinary tract infection, and patient has been started on cefepime. Urine culture is pending at this time, blood and sputum cultures have been negative. No fevers overnight, she's not requiring any vasopressor support. On 09/15/2020 patient seen in follow-up in intensive care unit, she remains intubated, sedated and paralyzed on assist-control mode of ventilation with a rate of 36, tidal vital 375, FiO2 100% and PEEP of 18, this morning's blood gas reviewed showing pO2 of 58, pCO2 of 45, and pH is 7.35, this was done on FiO2 of 100%. Her peak airway pressures 44, plateau pressures 38, she is on 0.9 normal saline at 50 ML per hour, Diprivan is a 40 mics per kilo per minute, Nimbex drip is a 2 mics per kilo per minute, and fentanyl drip at 0.5 mics per kilo per hour, she is tolerating tube feedings with vital high-protein is 27 with a goal of 27 standard water flushes. She is in sinus mechanism with a rate of 73, she is hemodynamically stable and not requiring any vasopressors. Today's chest x- ray shows ARDS, bilateral airspace opacities, no significant pleural effusion and no pneumothorax. Today's labs have been reviewed, white blood cell count is 9.9, hemoglobin is 11.3, sodium is 134, respiratory electrolytes were within normal limits, and there has been further worsening of her renal function with BUN of 34, creatinine is 4.78, her urine output has remained very poor. Last night she had her first hemodialysis session and no fluid was removed, this morning she is having another hemodialysis treatments and the goal is to remove half a liter of fluid. Her sputum, blood and urine cultures remained negative thus far, patient's pro-calcitonin level came back significantly elevated at 23.5 suggesting evidence of bacterial infection. Patient remains on cefepime for antibiotic coverage, she also remains on Decadron milligrams twice daily, and Lovenox is 50 mg every 24 hours. The patient is seen today 09/16/2020 in follow-up in the intensive care unit. She remains intubated on the mechanical ventilator. Current settings assist- control at a rate of 36, tidal volume 3 or 75, FiO2 100% and a PEEP of 18. Morning blood gases reveal a pO2 of 61, pCO2 49, pH 7.32. Peak pressures of 48, plateau pressure 43. Chest x-ray continues to show evidence of ARDS, pulmonary edema, diffuse pneumonia. She was not proned last night. The plan is to receive hemodialysis again today. Ultrasound of the chest did not reveal any significant fluid for thoracentesis. Sedated on propofol at 50 mcg/kg/m, fentanyl at 0.5 mcg/kg per hour, Nimbex at 3 mcg/kg/m. Insulin drip at 4 units per hour. She is being nourished with vital HPI at 36 ML's per hour. 0.9 normal saline at 60 ML's per hour. Blood, sputum and urine cultures reveal no growth. White count 11.2. Hemoglobin 11.0. Sodium 134. Potassium 3.4. Creatinine 4.44. Glucose 164. She remains in sinus rhythm. She is continued on Symbicort, albuterol. Antibiotics in the form of cefepime. Remains on Decadron, Lovenox, vitamin supplements. Reevaluated today on 09/17/2020, remains in the ICU, intubated and mechanically ventilated. Patient is on assist control rate of 36 tidal volume 350 FiO2 80% and will cut it down to 70% PEEP is at 20. ABG showed a pO2 of 102 pCO2 of 40 pH of 7.37 and this was on a 90% FiO2 now her FiO2 is down to 70%. Patient remains on hemodialysis, and she is receiving hemodialysis daily. She is on Nimbex at 30 mcg/kg/m, he is also on fentanyl at 0.5 mg/kg/h insulin at 6 units per hour propofol at 50 mcg/kg/m patient has been in prone position almost at least 16 hours per day. Remains on enteral feeding and would've may consider TPN in addition to her enteral feeding if not meeting her total caloric requirements. Patient remains on cefepime. Decadron and Lovenox. Chest x-ray continues to show significant bilateral interstitial infiltrates. WBC count is 10.3 hemoglobin is 10.4, basic metabolic profile showed low potassium of 3.1 being addressed by nephrology BUN is 33 creatinine 4.29. LDH is coming down a bit 1912 C-reactive protein is coming down to 1.3. Patient was reevaluated today on 10/03/2020, remains in the ICU, intubated and mechanically ventilated. She is on assist control rate of 28 tidal volume 400 FiO2 60% PEEP is at 10 I went ahead and increased the PEEP to 12, FiO2 cut down to 55% ABG showed a pO2 of 67 pCO2 of 38 pH of 7.41. Patient remains on propofol at 45 mcg/kg/m, fentanyl at 0.7 mcg/kg/h, she is on enteral feeding using vital AF. She is up to goal. Patient remains on hemodialysis 3 days a week, she had hemodialysis yesterday and 3.5 L were taken off. Patient has multiple lines including dialysis catheter, PICC line, and arterial line. Patient is arousable, however she gets extremely agitated, and starts gagging and desaturating. Hence not ready for any weaning, and I kept her on the ventilator settings as noted earlier. Ration is not making any urine, she is completely dialysis dependent. Fecal management system remains in place. Venkatesh gregorio is not requiring any pressors. Chest x-ray continues to show diffuse bilateral interstitial infiltrates consistent with pneumonia or possibly underlying pulmonary edema/fluid overload from her renal failure. She had a T- max of 101, presently her hemoglobin is 7.4, platelets are 160, d-dimer is 4.05. 31 creatinine 3.8. LDH is 1016 C-reactive protein is 13.6. Overall prognostic picture does not look very promising. Urine cultures and blood cultures and urine cultures have been relatively nondiagnostic Patient was reevaluated today on 10/04/2020, remains in the ICU, intubated and mechanically ventilated. Patient is undergoing hemodialysis during my evaluation. Last night I had to increase her FiO2 and she is now on 65% FiO2, tidal volume is 400 assist control rate 28, and PEEP is 14. Chest x-ray continues to show bilateral interstitial infiltrates/edema. Hoping that, but will clear after hemodialysis, and hopefully we can cut down her FiO2 back again to 50% if possible. ABG on 60% was marginal with a pO2 of 55 pCO2 of 38 pH of 7.38. Patient remains on propofol at 50 fentanyl 20.5 mcg/kg/m, IV fluid to KVO. Goal today is to remove 4 L of fluid by hemodialysis/ultrafiltration. In spite of being on relatively good dose of propofol and fentanyl, patient is awake, follows simple instructions. Patient has a low-grade temp of 100.3. She had a T-max of 101 yesterday. Hemoglobin is low today, and she will receive 1 units of packed RBCs for hemoglobin of 6.8. Basic metabolic profile is relatively normal. PH is 859 and C-reactive protein is 14.4. Patient remains on the COVID-19 cocktail. Remains on Symbicort, Decadron 4 mg IV push daily, Lovenox 30 mg subcu daily, she is also on insulin as per protocol, and she is on Protonix, sodium bicarb 650 mg by mouth 3 times a day, today, the patient is not requiring any pressors. Patient was reevaluated today on 10/05/2020, remains in the ICU, intubated, mechanically ventilated, patient is doing worse today compared to the last few days, her chest x-ray is worsening, her O2 requirement is rising and she is back on the percent FiO2, I have also increased her PEEP to 16, assist control rate was increased to 52, FiO2 is on the percent. ABG earlier today on 70% FiO2 showed a pO2 of 56 pCO2 of 50 pH of 7.32. She was on assist control rate of 28 tidal volume of 400 FiO2 70% and PEEP of 14. Patient had to be placed on a higher dose of propofol which was increased to 70 fentanyl is at 2 mcg/kg/m, patient will be placed on Nimbex as I'm having difficulty oxygenating the patient in spite of high FiO2. She is scheduled to undergo hemodialysis again today, she had 4 L off yesterday. Remains on tube feeds using vital AF at 30 MLS per hour. Patient is tachycardic rate is 129, blood pressure is marginal 86/45, hence may recommend adding norepinephrine. The overall picture clearly showing deterioration in this patient's clinical status, and I have a feeling that this patient will continue to do poorly and she is now maximized on treatment. Again her chest x-ray is showing significant worsening of her infiltrates. Patient was reevaluated today on 10/06/2020, remains in the ICU, intubated and mechanically ventilated, and she is presently in prone position since last night for the next few hours until dialysis which is supposed to start sometime in the next couple of hours. Patient remains on assist control mode of mechanical ventilation, it is volume control with volume of 350 rate of 3 to FiO2 65%. 14. Her ABG showed a pO2 of 68 pCO2 of 52 pH of 7.28. Patient remains on propofol at 75 fentanyl at 3 mcg/kg/h she is also on norepinephrine at 0.02 and Nimbex at 3 mcg/kg/m. Patient is scheduled to have hemodialysis today. Chest x-ray continues to show evidence of bilateral interstitial infiltrates. Patient is on enteral feeding in the form of Nepro at 30/30. Patient has been proned now for the last 17 hours. Electrolytes are normal however her BUN is 30 creatinine 2.93. Blood sugar is 147 WBC count is 5.1 hemoglobin is 11.4. Patient remains on the COVID-19 cocktail. Remains on albuterol, Symbicort, Decadron 4 mg IV push daily, Lovenox 30 mg subcu daily. Insulin protocol. Her tonic 40 mg IV push daily. Off antibiotics. Patient was reevaluated today on 10/07/2020, remains in the ICU, intubated and mechanically ventilated, presently receiving hemodialysis. She is on assist control rate of 32, tidal volume of 350, FiO2 is up to on the percent today, and PEEP of 14. Higher PEEP did not seem to help much, hence I kept her on a PEEP of 14. ABG today showed a pO2 of 63 pCO2 53 pH of 7.25. A shunt is on Nimbex at 4 mcg/kg/m, fentanyl 3 mcg/kg/h, norepinephrine at 0.07 mcg/kg/m, propofol at 75 mcg/kg/m. Again the patient is receiving hemodialysis, and I have instructed the nurses today to go back into prone position after she is done with dialysis. Chest x-ray continues to show worsening interstitial infiltrates and ARDS picture. Labs were all reviewed. Her medications were all reviewed today. Basic metabolic profile is normal BUN is 26 creatinine 2.59. LDH is 955 and C- reactive protein is 22.1. Not much of a change in the last few days. Patient was reevaluated today on 10/08/2020, remains in the ICU, intubated and mechanically ventilated, patient is presently in prone position her ABG this morning showed significant improvement in her oxygenation, however continues to have a combined metabolic and respiratory acidosis. She is now on assist cont rol of 350 rate of 36 FiO2 down to 60% PEEP at 14. ABG on 100% showed a pO2 of 209 pCO2 of 59 pH of 7.15. Her assist control rate was increased to 36. Kept her on the same tidal volume of 350. 2 A of bicarb were given. Patient is also on bicarb drip. Patient remains on propofol at 75 mcg/kg/m, she is on Nimbex at 4 mcg/kg/m, and norepinephrine at 0.01 mcg/kg/m. Patient is also on fentanyl at 3 mcg/kg per hour. During my evaluation, the patient was in prone position, however should be placed back in supine position once dialysis is ready and the patient will be dialyzed again today. Chest x-ray from yesterday continues to show evidence of interstitial edema and ARDS. No chest x-ray has been done yet today because the patient was in prone position. Patient remains on Decadron, remains on Lovenox, she is off antibiotics for now. CBC showed WBC 9.9 hemoglobin is 9.1. Hematocrit is 28.7. Electrodes are normal. BUN is 29 and creatinine 2.44. Bicarb is 20. LDH is up a bit 1026, C-reactive protein is about the same at 19.7. Objective - Vital Signs Vital signs: Vital Signs Temp 97.4 F L 10/08/20 04:00 Pulse 114 H 10/08/20 11:00 Resp 36 H 10/08/20 11:00 BP 86/53 10/07/20 20:00 Pulse Ox 96 10/08/20 12:00 Intake & Output 10/07/20 10/08/20 10/08/20 18:59 06:59 18:59 Intake Total 823.379 1011.267 615.56 Output Total 2500 Balance -9849.721 5287.267 615.56 Intake: IV 156 280 43 0.9 Normal Saline @ KVO 120 244 40 0.9 Normal Saline 36 36 3 Pressure Bag Intake, IV Titration 272.459 9604.267 553.56 Amount Cisatracurium 200 mg In 400 183.187 Sodium Chloride 0.9% 180 ml @ 1 MCG/KG/MIN 7.308 mls/hr IV .Q24H [facility] Rx#: [id number] Norepinephrine 8 mg In 65.002 156.58 3.56 Sodium Chloride 0.9% 250 ml @ 0.05 MCG/KG/MIN 11. 61 mls/hr IV .[id number] [facility] Rx#:[id number] fentaNYL (PF) 2,500 mcg 250 250 250 In Sodium Chloride 0.9% 200 ml @ Per Protocol IV .Q0M [facility] Rx#:[id number] propofoL 1,000 mg In 100 566.5 300 Empty Bag 1 bag @ Per Protocol IV .Q0M [facility] Rx#: [id number] Tube Feeding 10 10 Lipid 9 0.9 Normal Saline @ KVO 9 Output: Urine 0 Hemodialysis 2500 Other: Voiding Method Incontinent Incontinent ABP, PAP, CO, CI - Last Documented Arterial Blood Pressure 101/65 - Exam GENERAL EXAM: Revealed a 35-year-old female, obese, on mechanical ventilation, sedated, paralyzed, in prone position at present HEAD: Normocephalic/atraumatic. Tracheostomy is intact. EENT: PERRLA, EOMI, nonicteric, no neck masses, no JVD, CHEST: No chest wall deformity. Symmetrical expansion. LUNGS: Bronchial breath sounds bilaterally posteriorly. Could not assess breath sounds in the front. Patient is in prone position. CVS: Distant S1 and S2, no S3 gallop, no murmur. ABDOMEN: Obese soft nontender no megaly no rebound no guarding. PEG tube is intact. EXTREMITIES: No clubbing, 2+ bipedal edema, no cyanosis, 2+ pulses and upper and lower extremities. Psychiatric: Sedated, and paralyzed, could not assess SKIN: No rashes CENTRAL NERVOUS SYSTEM: Sedated and paralyzed, could not assess - Labs CBC & Chem 7: 10/08/20 04:34 10/08/20 04:34 Labs: Abnormal Lab Results - Last 24 Hours (Table) 10/07/20 10/07/20 10/07/20 Range/Units 16:58 21:43 23:36 RBC (3.80-5.40) m/uL Hgb (11.4-16.0) gm/dL Hct (34.0-46.0) % RDW (11.5-15.5) % Eosinophils # (0-0.7) k/uL ABG pH (7.35-7.45) ABG pCO2 (35-45) mmHg ABG pO2 (83-108) mmHg ABG O2 Saturation (94-97) % Sodium (137-145) mmol/L Potassium (3.5-5.1) mmol/L Carbon Dioxide (22-30) mmol/L BUN (7-17) mg/dL Creatinine (0.52-1.04) mg/dL Glucose (74-99) mg/dL POC Glucose (mg/dL) 159 H 104 H 139 H (75-99) mg/dL Lactate Dehydrogenase (313-618) U/L C-Reactive Protein (<1.0) mg/dL Total Protein (6.3-8.2) g/dL Albumin (3.5-5.0) g/dL 10/08/20 10/08/20 10/08/20 Range/Units 04:34 04:34 06:05 RBC 3.20 L (3.80-5.40) m/uL Hgb 9.1 L (11.4-16.0) gm/dL Hct 28.7 L (34.0-46.0) % RDW 15.8 H (11.5-15.5) % Eosinophils # 1.1 H (0-0.7) k/uL ABG pH 7.15 L* (7.35-7.45) ABG pCO2 59 H (35-45) mmHg ABG pO2 201 H (83-108) mmHg ABG O2 Saturation 98.9 H (94-97) % Sodium 133 L (137-145) mmol/L Potassium 5.3 H (3.5-5.1) mmol/L Carbon Dioxide 20 L (22-30) mmol/L BUN 29 H (7-17) mg/dL Creatinine 2.44 H (0.52-1.04) mg/dL Glucose 114 H (74-99) mg/dL POC Glucose (mg/dL) (75-99) mg/dL Lactate Dehydrogenase 1026 H (313-618) U/L C-Reactive Protein 19.7 H (<1.0) mg/dL Total Protein 5.6 L (6.3-8.2) g/dL Albumin 2.6 L (3.5-5.0) g/dL 10/08/20 10/08/20 Range/Units 06:23 11:42 RBC (3.80-5.40) m/uL Hgb (11.4-16.0) gm/dL Hct (34.0-46.0) % RDW (11.5-15.5) % Eosinophils # (0-0.7) k/uL ABG pH (7.35-7.45) ABG pCO2 (35-45) mmHg ABG pO2 (83-108) mmHg ABG O2 Saturation (94-97) % Sodium (137-145) mmol/L Potassium (3.5-5.1) mmol/L Carbon Dioxide (22-30) mmol/L BUN (7-17) mg/dL Creatinine (0.52-1.04) mg/dL Glucose (74-99) mg/dL POC Glucose (mg/dL) 102 H 132 H (75-99) mg/dL Lactate Dehydrogenase (313-618) U/L C-Reactive Protein (<1.0) mg/dL Total Protein (6.3-8.2) g/dL Albumin (3.5-5.0) g/dL Microbiology - Last 24 Hours (Table) 10/02/20 22:55 Blood Culture - Preliminary Blood No Growth after 120 hours 10/05/20 04:00 Catheter Tip Culture - Final Catheter Tip 10/04/20 12:30 Blood Culture - Preliminary Blood No Growth after 72 hours Assessment and Plan Assessment: Impression: Acute hypoxic respiratory failure secondary to COVID-19 pneumonia and ARDS secondary to COVID-19 pneumonia, patient was transferred to the ICU on 09/11, intubated on 09/11, received REM on 09/11, received T OCI on 09/11, tracheostomy and PEG tube placement on 09/18 remains on mechanical ventilation with volume control plus mode , she is presently on the 60 percent FiO2 and PEEP of 14. Assist control rate of 36, patient is on volume control plus with tidal volume of 350 Acute kidney injury with complete shutdown of urine output/anuria, requiring hemodialysis. Remains on hemodialysis 3 times per week Acute diabetic ketoacidosis and COVID-19 pneumonia on her initial presentation. Sepsis secondary to COVID-19 pneumonia Type 2 diabetes poorly controlled. Hemoglobin A1c of 13.6. Elevated inflammatory markers secondary to acute COVID-19 pneumonia not much of a change in the last few days in the inflammatory markers. History of hypertension. Generalized anxiety disorder. Morbid obesity BMI of 54.2. Status post tracheostomy and PEG tube placement on 09/18. Recommendation: Continue ventilatory support and intermittent proning positions. Titrate FiO2 maintaining O2 saturation hopefully above 90% if possible. Continue nutritional support/enteral feeding. Continue Lovenox. Continue Decadron. 4 mg IV push every 24 hours Continue hemodialysis Continue insulin Continue COVID-19 cocktail. Continue to follow the patient with multiple consultants on the case. Remains critically ill. prognosis remains extremely poor and guarded. Critical care time is over 30 minutes Time with Patient: Greater than 30
[2020-10-08 13:42] LABS: Ferritin 2681.8 ng/mL (10.0-291.0)
[2020-10-08 16:46] LABS: Glucose,Whole Blood 129 mg/dL (75-99)
[2020-10-08] MEDS: SODIUM CHLORIDE 0.9% 500 ML 500 ML IV SCH (16:49)
[2020-10-08 17:54] LABS: Glucose,Whole Blood 118 mg/dL (75-99)
[2020-10-08] MEDS: NOREPINEPHRINE 8 MG in SODIUM CHLORIDE 0.9% 250 ML IV SCH (18:25)
[2020-10-08 21:11] LABS: Glucose,Whole Blood 107 mg/dL (75-99)
[2020-10-08 23:45] LABS: Glucose,Whole Blood 90 mg/dL (75-99)
[2020-10-09] MEDS: INSULIN ASPART (NovoLOG) 100 UNIT/ML VIAL SQ SCH ×10 (00:02→23:37)
[2020-10-09] MEDS: fentaNYL (PF) 2,500 MCG in SODIUM CHLORIDE 0.9% 200 ML IV SCH ×4 (01:27→23:27)
[2020-10-09] MEDS: CISATRACURIUM 200 MG in SODIUM CHLORIDE 0.9% 180 ML IV SCH ×4 (01:28→23:48)
[2020-10-09] MEDS: ARTIFICIAL TEARS-HYPROMELLOSE DROPS 15 ML BTL BOTH EYES SCH ×6 (03:30→23:28)
[2020-10-09 05:00] LABS: Albumin 2.2 g/dL (3.5-5.0); Calcium 8.9 mg/dL (8.4-10.2); Potassium 4.2 mmol/L (3.5-5.1); Total Bilirubin 0.2 mg/dL (0.2-1.3); Total Protein 4.9 g/dL (6.3-8.2)
[2020-10-09 05:16] LABS: Anisocytosis Slight; Basophils # (A) 0.1 k/uL (0-0.2); Basophils % (A) 2 %; Eosinophils # (A) 0.6 k/uL (0-0.7); Eosinophils % (A) 11 %; HCT 28.8 % (34.0-46.0); HGB 9.2 gm/dL (11.4-16.0); Hypochromasia Marked; Lymphocytes # (A) 0.7 k/uL (1.0-4.8); Lymphocytes % (A) 13 %; MCH 28.5 pg (25.0-35.0); MCHC 31.9 g/dL (31.0-37.0); MCV 89.3 fL (80.0-100.0); Mean Platelet Volume 9.2; Monocytes # (A) 0.4 k/uL (0-1.0); Monocytes % (A) 7 %; Neutrophils # (A) 3.5 k/uL (1.3-7.7); Neutrophils % (A) 65 %; Platelet Count 217 k/uL (150-450); Poikilocytosis Slight; RBC 3.22 m/uL (3.80-5.40); WBC 5.4 k/uL (3.8-10.6)
[2020-10-09 05:36] LABS: C Reactive Protein 13.9 mg/dL (<1.0)
[2020-10-09 06:06] LABS: ABG Base Excess -7.2 mmol/L; ABG HCO3 20 mmol/L (21-25); ABG Oxygen Saturation 91.1 % (94-97); ABG PCO2 47 mmHg (35-45); ABG PH 7.24 (7.35-7.45); ABG PO2 72 mmHg (83-108); ABG TCO2 22 mmol/L (19-24)
[2020-10-09 06:16] LABS: Allen Test Performed? no
[2020-10-09 06:44] LABS: Glucose,Whole Blood 104 mg/dL (75-99)
[2020-10-09] MEDS: SEVELAMER 800 MG TAB PO SCH ×3 (06:45→18:56)
[2020-10-09] MEDS: INSULIN DETEMIR (LEVEMIR) 100 UNIT/ML SYR SQ SCH ×2 (06:45→20:24)
--- NOTE | 2020-10-09 06:59 | XR ---
EXAMINATION TYPE: XR chest 1V portable DATE OF EXAM: 10/09/2020 CLINICAL HISTORY: Difficulty breathing and covid progress study. TECHNIQUE: Single AP portable semiupright view of the chest is obtained. COMPARISON: Chest x-ray from 2 days earlier and older studies FINDINGS: Stable tracheostomy tube and right internal jugular large bore dialysis catheter. Bilateral multifocal and confluent opacities redemonstrated. Silhouetting both diaphragms again seen. Heart size stable and upper limits of normal. Osseous structures are intact. IMPRESSION: Persistent bilateral multifocal and confluent opacities consistent with covid-19 infectio n and/or ARDS. No significant change from most recent x-ray.
[2020-10-09] MEDS: ALBUTEROL HFA INHALER INHALATION SCH ×4 (08:15→19:19)
[2020-10-09] MEDS: SYMBICORT 160-4.5 MCG INHALER INHALATION SCH ×2 (08:15→19:19)
[2020-10-09] MEDS: PANTOPRAZOLE 40 MG/10 ML VIAL IVP SCH (08:35)
[2020-10-09] MEDS: DEXAMETHASONE SOD PHOSPHATE 4 MG/ML 1 ML VIAL IV SCH (08:36)
[2020-10-09] MEDS: ZINC SULFATE 220 MG CAP PO SCH (08:36)
[2020-10-09] MEDS: CHOLECALCIFEROL 25 MCG (1000 IU) TABLET PO SCH (08:36)
[2020-10-09] MEDS: ENOXAPARIN 30 MG/0.3 ML SYRINGE SQ SCH (08:36)
[2020-10-09] MEDS: ASCORBIC ACID 500 MG TAB PO SCH ×2 (08:36→20:23)
[2020-10-09] MEDS: SODIUM BICARBONATE TAB 650 MG TAB PO SCH ×3 (08:36→20:23)
--- NOTE | 2020-10-09 09:20 | P.PN ---
Subjective Progress Note Date: 10/09/20 Principal diagnosis: Acute respiratory failure secondary to Covid 19 pneumonia. Patient was reevaluated today on 10/05/2020, remains in the ICU, intubated, mechanically ventilated, patient is doing worse today compared to the last few days, her chest x-ray is worsening, her O2 requirement is rising and she is back on the percent FiO2, I have also increased her PEEP to 16, assist control rate was increased to 52, FiO2 is on the percent. ABG earlier today on 70% FiO2 showed a pO2 of 56 pCO2 of 50 pH of 7.32. She was on assist control rate of 28 tidal volume of 400 FiO2 70% and PEEP of 14. Patient had to be placed on a higher dose of propofol which was increased to 70 fentanyl is at 2 mcg/kg/m, patient will be placed on Nimbex as I'm having difficulty oxygenating the pat ient in spite of high FiO2. She is scheduled to undergo hemodialysis again today, she had 4 L off yesterday. Remains on tube feeds using vital AF at 30 MLS per hour. Patient is tachycardic rate is 129, blood pressure is marginal 86/45, hence may recommend adding norepinephrine. The overall picture clearly showing deterioration in this patient's clinical status, and I have a feeling that this patient will continue to do poorly and she is now maximized on treatment. Again her chest x-ray is showing significant worsening of her infiltrates. Patient was reevaluated today on 10/06/2020, remains in the ICU, intubated and mechanically ventilated, and she is presently in prone position since last night for the next few hours until dialysis which is supposed to start sometime in the next couple of hours. Patient remains on assist control mode of mechanical ventilation, it is volume control with volume of 350 rate of 3 to FiO2 65%. 14. Her ABG showed a pO2 of 68 pCO2 of 52 pH of 7.28. Patient remains on propofol at 75 fentanyl at 3 mcg/kg/h she is also on norepinephrine at 0.02 and Nimbex at 3 mcg/kg/m. Patient is scheduled to have hemodialysis today. Chest x-ray continues to show evidence of bilateral interstitial infiltrates. Patient is on enteral feeding in the form of Nepro at 30/30. Patient has been proned now for the last 17 hours. Electrolytes are normal however her BUN is 30 creatinine 2.93. Blood sugar is 147 WBC count is 5.1 hemoglobin is 11.4. Patient remains on the COVID-19 cocktail. Remains on albuterol, Symbicort, Decadron 4 mg IV push daily, Lovenox 30 mg subcu daily. Insulin protocol. Her tonic 40 mg IV push daily. Off antibiotics. Patient was reevaluated today on 10/07/2020, remains in the ICU, intubated and mechanically ventilated, presently receiving hemodialysis. She is on assist control rate of 32, tidal volume of 350, FiO2 is up to on the percent today, and PEEP of 14. Higher PEEP did not seem to help much, hence I kept her on a PEEP of 14. ABG today showed a pO2 of 63 pCO2 53 pH of 7.25. A shunt is on Nimbex at 4 mcg/kg/m, fentanyl 3 mcg/kg/h, norepinephrine at 0.07 mcg/kg/m, propofol at 75 mcg/kg/m. Again the patient is receiving hemodialysis, and I have instructed the nurses today to go back into prone position after she is done with dialysis. Chest x-ray continues to show worsening interstitial infiltrates and ARDS pic ture. Labs were all reviewed. Her medications were all reviewed today. Basic metabolic profile is normal BUN is 26 creatinine 2.59. LDH is 955 and C- reactive protein is 22.1. Not much of a change in the last few days. Patient was reevaluated today on 10/08/2020, remains in the ICU, intubated and mechanically ventilated, patient is presently in prone position her ABG this morning showed significant improvement in her oxygenation, however continues to have a combined metabolic and respiratory acidosis. She is now on assist control of 350 rate of 36 FiO2 down to 60% PEEP at 14. ABG on 100% showed a pO2 of 209 pCO2 of 59 pH of 7.15. Her assist control rate was increased to 36. Kept her on the same tidal volume of 350. 2 A of bicarb were given. Patient is also on bicarb drip. Patient remains on propofol at 75 mcg/kg/m, she is on Nimbex at 4 mcg/kg/m, and norepinephrine at 0.01 mcg/kg/m. Patient is also on fentanyl at 3 mcg/kg per hour. During my evaluation, the patient was in prone position, however should be placed back in supine position once dialysis is ready and the patient will be dialyzed again today. Chest x-ray from yesterday continues to show evidence of interstitial edema and ARDS. No chest x-ray has been done yet today because the patient was in prone position. Patient remains on Decadron, remains on Lovenox, she is off antibiotics for now. CBC showed WBC 9.9 hemoglobin is 9.1. Hematocrit is 28.7. Electrodes are normal. BUN is 29 and creatinine 2.44. Bicarb is 20. LDH is up a bit 1026, C-reactive protein is about the same at 19.7. Progress note dated 10/09/2020. This is a 35-year-old black female with history of acute COVID 19 infection, with acute hypoxemic respiratory failure. She was admitted way back on September 10. Because of failure to wean from mechanical ventilation, she underwent tracheostomy and PEG tube placement on September 18. Currently remains on the ventilator. She is on the VC + (PRVC) modality, with a targeted tidal volume 350 and inspiratory time of 0.9 seconds. Her rate is set at 36. FiO2 70%, and PEEP of 14. On those settings, her arterial blood gases show a PaO2 of 72, pCO2 47, and pH 7.23. Currently, the patient's getting daily hemodialysis. Her drips including propofol at 75 mcg/kg/m, Nimbex at 3.5 mcg/kg/m, with [id number] monitoring, fentanyl at 3 g kilogram per hour, norepinephrine at 7 mcg/m, saline at 20 mL an hour, and vital 1.2 at 10 mL an hour, which is goal. White count 5.4, hemoglobin 9.2, hematocrit 28.8, and platelet count 217,000. Sodium 137, potassium 4.2, chlorides 108, CO2 19, anion gap 10, BUN 22, and creatinine 1.64. The patient's chest x-ray is consistent with bilateral infilt rates, and is essentially unchanged, and consistent with a diagnosis of coronavirus pneumonia. Objective - Vital Signs Vital signs: Vital Signs Temp 98.0 F 10/09/20 04:00 Pulse 118 H 10/09/20 07:00 Resp 36 H 10/09/20 07:00 BP 99/56 10/09/20 07:00 Pulse Ox 93 L 10/09/20 07:00 Intake & Output 10/08/20 10/09/20 10/09/20 18:59 06:59 18:59 Intake Total 5277.934 9079.333 348.658 Balance 3988.614 2334.333 348.658 Weight 115.2 kg Intake: IV 103 166 0.9 Normal Saline @ KVO 100 130 0.9 Normal Saline 3 36 Pressure Bag Intake, IV Titration 0085.933 8205.333 348.658 Amount Cisatracurium 200 mg In 392.261 284.951 98.658 Sodium Chloride 0.9% 180 ml @ 1 MCG/KG/MIN 7.308 mls/hr IV .Q24H [facility] Rx#: [id number] Norepinephrine 8 mg In 3.56 57.082 Sodium Chloride 0.9% 250 ml @ 0.05 MCG/KG/MIN 11. 61 mls/hr IV .[id number] [facility] Rx#:[id number] fentaNYL (PF) 2,500 mcg 457.06 250 250 In Sodium Chloride 0.9% 200 ml @ Per Protocol IV .Q0M [facility] Rx#:[id number] propofoL 1,000 mg In 495.4 567.3 Empty Bag 1 bag @ Per Protocol IV .Q0M [facility] Rx#: [id number] Tube Feeding 70 120 Other 90 Other: Voiding Method Incontinent ABP, PAP, CO, CI - Last Documented Arterial Blood Pressure 92/78 - Exam No acute distress, sedated and paralyzed, with a midline tracheostomy tube. HEENT examination is grossly unremarkable. Neck supple. Full range of motion. No adenopathy thyromegaly or neck vein distention. Midline tracheostomy tube noted. Cardiovascular examination reveals regular rhythm rate. S1-S2 normal. No S3 or S4. No discernible murmur noted. Heart sounds are distant. Heart rate 118 beats per minute. Lungs reveal diffuse coarse rhonchi and bilateral crackles. No wheezes. Breath sounds equal bilaterally but diminished throughout. Abdomen soft bowel sounds are heard. No masses or tenderness. PEG tube noted. Extremities are intact. No cyanosis clubbing or edema. Skin is without rash or lesion. Neurologic examination cannot be adequately assessed as the patient's currently sedated and paralyzed. - Labs CBC & Chem 7: 10/09/20 04:28 10/09/20 04:28 Labs: Abnormal Lab Results - Last 24 Hours (Table) 10/08/20 10/08/20 10/08/20 Range/Units 04:34 11:42 16:43 RBC (3.80-5.40) m/uL Hgb (11.4-16.0) gm/dL Hct (34.0-46.0) % RDW (11.5-15.5) % Lymphocytes # (1.0-4.8) k/uL D-Dimer (<0.60) mg/L FEU ABG pH (7.35-7.45) ABG pCO2 (35-45) mmHg ABG pO2 (83-108) mmHg ABG HCO3 (21-25) mmol/L ABG O2 Saturation (94-97) % Chloride (98-107) mmol/L Carbon Dioxide (22-30) mmol/L BUN (7-17) mg/dL Creatinine (0.52-1.04) mg/dL POC Glucose (mg/dL) 132 H 129 H (75-99) mg/dL Ferritin 2681.8 H (10.0-291.0) ng/mL Lactate Dehydrogenase (313-618) U/L C-Reactive Protein (<1.0) mg/dL Total Protein (6.3-8.2) g/dL Albumin (3.5-5.0) g/dL 10/08/20 10/08/20 10/09/20 Range/Units 17:52 21:09 04:28 RBC 3.22 L (3.80-5.40) m/uL Hgb 9.2 L (11.4-16.0) gm/dL Hct 28.8 L (34.0-46.0) % RDW 16.0 H (11.5-15.5) % Lymphocytes # 0.7 L (1.0-4.8) k/uL D-Dimer (<0.60) mg/L FEU ABG pH (7.35-7.45) ABG pCO2 (35-45) mmHg ABG pO2 (83-108) mmHg ABG HCO3 (21-25) mmol/L ABG O2 Saturation (94-97) % Chloride (98-107) mmol/L Carbon Dioxide (22-30) mmol/L BUN (7-17) mg/dL Creatinine (0.52-1.04) mg/dL POC Glucose (mg/dL) 118 H 107 H (75-99) mg/dL Ferritin (10.0-291.0) ng/mL Lactate Dehydrogenase (313-618) U/L C-Reactive Protein (<1.0) mg/dL Total Protein (6.3-8.2) g/dL Albumin (3.5-5.0) g/dL 10/09/20 10/09/20 10/09/20 Range/Units 04:28 04:28 06:04 RBC (3.80-5.40) m/uL Hgb (11.4-16.0) gm/dL Hct (34.0-46.0) % RDW (11.5-15.5) % Lymphocytes # (1.0-4.8) k/uL D-Dimer 2.67 H (<0.60) mg/L FEU ABG pH 7.24 L (7.35-7.45) ABG pCO2 47 H (35-45) mmHg ABG pO2 72 L (83-108) mmHg ABG HCO3 20 L (21-25) mmol/L ABG O2 Saturation 91.1 L (94-97) % Chloride 108 H (98-107) mmol/L Carbon Dioxide 19 L (22-30) mmol/L BUN 22 H (7-17) mg/dL Creatinine 1.64 H (0.52-1.04) mg/dL POC Glucose (mg/dL) (75-99) mg/dL Ferritin (10.0-291.0) ng/mL Lactate Dehydrogenase 794 H (313-618) U/L C-Reactive Protein 13.9 H (<1.0) mg/dL Total Protein 4.9 L (6.3-8.2) g/dL Albumin 2.2 L (3.5-5.0) g/dL 10/09/20 Range/Units 06:42 RBC (3.80-5.40) m/uL Hgb (11.4-16.0) gm/dL Hct (34.0-46.0) % RDW (11.5-15.5) % Lymphocytes # (1.0-4.8) k/uL D-Dimer (<0.60) mg/L FEU ABG pH (7.35-7.45) ABG pCO2 (35-45) mmHg ABG pO2 (83-108) mmHg ABG HCO3 (21-25) mmol/L ABG O2 Saturation (94-97) % Chloride (98-107) mmol/L Carbon Dioxide (22-30) mmol/L BUN (7-17) mg/dL Creatinine (0.52-1.04) mg/dL POC Glucose (mg/dL) 104 H (75-99) mg/dL Ferritin (10.0-291.0) ng/mL Lactate Dehydrogenase (313-618) U/L C-Reactive Protein (<1.0) mg/dL Total Protein (6.3-8.2) g/dL Albumin (3.5-5.0) g/dL Microbiology - Last 24 Hours (Table) 10/02/20 22:55 Blood Culture - Final Blood No Growth after 144 hours 10/04/20 12:30 Blood Culture - Preliminary Blood No Growth after 96 hours Assessment and Plan Assessment: Acute hypoxemic respiratory failure, secondary to COVID 19 pneumonia, with ARDS, with admission to hospital on September 10, transferred to ICU on the , intubation on September 11, and tracheostomy and PEG tube placement on September 18. Acute respiratory distress syndrome. Acute kidney injury, currently on hemodialysis. Acute diabetic ketoacidosis, resolved. Sepsis, secondary to COVID 19 pneumonia. Poorly controlled type 2 diabetes. Elevated inflammatory markers secondary to coronavirus infection. History of essential hypertension. Generalized anxiety disorder. Morbid obesity. Plan: Plan dated 10/09/2020. The patient remains on the pressure regulated volume control mode of ventilat ion. The patient is being nourished at goal. The patient remains on propofol, Nimbex, and fentanyl. In addition, the patient remains on norepinephrine. Labs, x-rays, and medications are all reviewed. Prognosis is very poor. We will continue to follow. Additional recommendations and suggestions are forthcoming. The patient remains on daily hemodialysis. Time with Patient: Greater than 30
[2020-10-09 10:39] LABS: Ferritin 2568.4 ng/mL (10.0-291.0)
[2020-10-09 11:56] LABS: Glucose,Whole Blood 102 mg/dL (75-99)
--- NOTE | 2020-10-09 12:54 | P.PN ---
Subjective Progress Note Date: 10/09/20 HISTORY OF PRESENT ILLNESS 35-year-old female patient of Dr. Arroyo with past medical history of type 2 diabetes comes in with acute shortness of breath associated with high light s ugars. Patient on admission was found to have a fever of 101.5 pulse rate 125 respiratory rate 20. Blood pressure 132/106. On chest x-ray obtained in the ER suggestive of bilateral infiltrates concerning for call with pneumonia. COVID PCR was positive. On admissions patient had an ABG with a pH of 7.14 pCO2 of 20, pO2 of 59, bicarb of 7. Patient's blood sugar on admission was 424 on assessment today patient's blood work patient had a sodium 135 potassium 5.4 chloride 123 bicarb less than 5 and creatinine 0.73. D-dimer was elevated on admission patient 9 28 patient given 1 L of IV fluids followed by normal saline running at 200 mL/h. Patient was positive for acetone on admission. She will anion gap closed and was switched to D5NS. Insulin drip was continued during the night and was switched to patient's home medication this morning. One dose of remdesiver was ordered. Apparently around noon, A- team was called on the patient secondary to hypoxia patient's oxygen saturation dropped to the 70s and 80s on 100% nonrebreather. Patient was switched to BiPAP on 18/12 and is doing better o FiO2 of 80%. ABG was obtained and ph was 7. 14 pCO2 of 28 bicarb of 7 pO2 of 17. Patient noted to have uncompensated metabolic acidosis with compensated respiratory alkalosis. Stat dose of 1 amp bicarb was given and followed by sodium bicarbonate drip. Insulin drip restarted. Patient's initiated on dexamethasone 6 mg IV twice a day. Potassium phosphate ordered as phosphorus is low. Patient's repeat blood gases suggest a pH of 7.25, CO2 32 pO2 of 72 bicarb 14. I will not normal saline at 100 mL/h as patient's anion gap has increased. Patient given 1 dose of 2 mg of morphine with improvement in respiratory rate. One dose of Ativan 0.5 mg was given. Xanax 0.25 twice a day along with Ativan 0.5 IV every 6 hours ordered for the patient. Vitals were evaluated patient pulse 129 [id number]. She was moved to the ICU. Precedex drip was initiated. Lopressor was initiated at 25 twice a day. Metoprolol tartrate 5 mg IV every 6 hours. Systolic blood pressure more than 160. Started chest x-ray was obtained and suggest stable bilateral consolidation suggestive of COVID-19 pneumonia. 09/12 patient is seen in the ICU is currently mechanically ventilated and sedated on vent settings of respiratory rate 36, tidal volume 375 FiO2 80% PEEP of 18.. Vital signs reviewed patient had a temp of 100.4 pulse 150 respiratory rate 36 oxygen saturation 95% on 80% on fio2 .'s labs are reviewed which patient had a d-dimer 1.84 that is increased to 14.3. Arterial Blood gas suggest ph 7.35, CO2 40, po2 62, . Her BMP suggest a sodium 135 potassium 3.7 chloride 112 bicarb 21 creatinine 1.57 for calcitonin is 3.5 CRP is increased from 8.78.2 LDH is increased to 2614. Patient remains on Pneumovax, propofol drip. Lovenox increased to 50 subcu twice a day. Patient received 2 L of IV fluids. Continue IV fluids at 100 mL/h. Bicarb drip discontinued patient initiated on Zosyn 3.375 every 8 hours. Continue insulin drip at 4 units per hour. Patient is currently in prone positioning 09/13: Patient evaluated in the ICU remains on Ventilation continues to be sedated, in prone position. Vent settings are respiratory rate 36, tidal vital 375, FiO2 70% PEEP of 18. ABG shows pO2 of 82, PCO2 of 39, pH is 7.19. Latest labs show WBC 11.1, hemoglobin 13.2, d-dimer still pending, but yesterday was up to 14.3. Creatinine up to 3.4, BUN 24 sodium 137, potassium 4.0. Patient's urine output has been low, nephrology on consult. Bicarb drip increased to 100 miles an hour, receiving another liter of normal saline, she did have a ultrasound that showed unremarkable bilateral kidneys. Repeat chest x-ray showed bilateral lung infiltrates that are stable. Anion gap has closed, will start Lantus 10 units at at bedtime Novolog every 6 hours. 09/14: Patient is seen in the ICU, still currently mechanically ventilated and sedated. She continues in the prone position. Her oxygen quickly drops if she is not in prone. Patient's kidney function has worsened. Laboratory values show creatinine of 4.87, BUN 33, LDH 2191, C-reactive protein 2.7. ABG shows pH 7.32, pO2 of 60, pCO2 43. Patient is making almost no urine overnight. Nephrology is following patient continues on cefepime for urinary tract infection, culture is still pending. Vascular has been consulted for placement of temporary hemodialysis catheter for plans for dialysis. 09/15: Patient evaluated in the ICU, continues to be mechanically ventilated and sedated on assist control ventilation rate of 36, tidal volume 375, FiO2 100% and PEEP of 18. ABG today shows pO2 58, pCO2 of 45, and pH 7.35. She continues on tube feedings. Yesterday patient underwent ultrasound-guided right internal jugular non-tunneled hemodialysis catheter placement. Patient underwent hemodialysis treatment last night and plans have another hemodialysis treatment today. She continues to make almost no urine. She continues on cefepime for antibiotic coverage, and continues on Decadron and Lovenox. 09/16: Patient seen on follow-up remains in the ICU mechanically ventilated and sedated. She continues on assist control rate of 36, tidal volume 375, FiO2 100% and PEEP of 20. PEEP had to be increased due to patient had to be in supine position for dialysis, will go back to prone position once dialysis is complete. ABG shows pH 7.32, pCO2 49, PaO2 61. Laboratory values showed WBC 11.2, hemoglobin 11, sodium 134, creatinine 4.44, BUN 38. Urine culture shows no growth, blood cultures show no growth to date. Repeat chest x-ray shows bilateral pleural effusions, correlate for ARDS, pulmonary edema, diffuse pneumonia, findings are stable from last exam. Patient does not require any pressors, blood pressure 133/57, heart rate 78. 5/16: Patient was evaluated in the ICU today for follow-up. She continues to be intubated and on mechanical ventilation. Current vent settings are tidal volume 375, FiO2 100% and PEEP of 20. ABG shows pH 7.37, pCO2 40, pO2 102. She continues with intermittent prone positioning. Patient continues to have almost no urine output, maintained on dialysis. Patient received dialysis yesterday without complication. Laboratory values revealed WBC 10.3, hemoglobin 10.4, sodium 132, potassium 3.1, BUN 33, creatinine 4.29, LDH 1913, C-reactive protein 1.3. Urine and sputum cultures are negative, blood cultures show no growth to date. Consult placed to dietary to start TPN[ ] 09/18: She remains in the intensive care unit intubated and on mechanical ventilation with tidal volume 375, FiO2 60 and PEEP of 20. Patient is being prone to daily at approximately 16 hours per day. Pulmonary medicine has added in Dr. Zhang to do PEG tube and trach today. Patient is not on vasopressors. Repeat blood work reveals WBC 12.6, hemoglobin 9.8, platelet count 212. Sodium 133, potassium 3.2, chloride 102, CO2 21, BUN 35 and creatinine 4.12. Blood sugar 126. Patient underwent hemodialysis yesterday with removal of 2 L and is scheduled again today with goal of 2-3 L and is scheduled again tomorrow. 09/19: She is scheduled for hemodialysis today and is off fentanyl temporarily. Patient is status post trach and PEG tube yesterday. And she remains on mechanical ventilation. Pulse ox 93-95%. She has been afebrile, heart rate 64, respiratory rate 36, blood pressure 115/50. Fentanyl is off to improve blood pressure for hemodialysis which is scheduled for today. Contacted vascular surgery about permanent hemodialysis catheter. Repeat blood work reveals WBC 14.3, hemoglobin 9.6, platelet count 200. D-dimer 6.48. LDH 1686. C-reactive protein 1.1. BUN 34 creatinine 3.81. Sodium 130, potassium 3.5, chloride 101, CO2 18. Blood sugars running between 101 198. Plan is to wean off Pneumovax today. Patient remains on insulin drip. Repeat chest x-ray reveals bilateral multifocal confluent opacities consistent with COVID-19. Some improved aeratio n periphery of the left lung and worsening opacities throughout the right lung. 09/20: She remains in the intensive care unit on mechanical ventilation. She has been afebrile, heart rate 65, respiratory rate 37, blood pressure 121/70, pulse ox 91-99%. Repeat blood work reveals WBC 14.5, hemoglobin 9.1, platelet count 216. D-dimer 6.13. Sodium 133, potassium 3.1, chloride 102, CO2 18, BUN 35 and creatinine 4.27. Blood sugars running between 128 and 143. LDH 1717. C- reactive protein 1.7. Patient remains on insulin drip which will be transitioned to NovoLog scale every 6 hours. Patient is scheduled for permanent hemodialysis catheter placement today with vascular surgery. Repeat chest x-ray reveals stable diffuse bilateral interstitial and airspace disease. Possible small right effusion. His work is following for transfer to [facility]. Do not anticipate discharge until next week. 09/21: Patient is undergoing hemodialysis. She remains on mechanical ventilation with tidal volume 375, FiO2 down to 45 and PEEP was decreased to 15. Patient is continued on propofol, fentanyl drips. She is on tube feedings at goal. Patient was taken off insulin drip yesterday and on scale only but blood sugars are running in the 200s, Levemir scheduled at bedtime will be added. Other blood work reveals WBC 13.3, hemoglobin 8.7, platelet count 192. Sodium 137, potassium 3.6, chloride 107, CO2 18, BUN 34 and creatinine 4.21. Repeat chest x-ray is stable. 09/22: She remains in the intensive care on mechanical ventilation with tidal volume 375, FiO2 of 50 and PEEP of 10. Pulse ox is running 96%. She is afebrile, heart rate in the 50s, respiratory rate 36, blood pressure 100/64. Repeat blood work reveals WBC 16.5, hemoglobin 8.9, platelet count 213. Sodium 134, potassium 3.7, chloride 103, CO2 21, BUN 34 and creatinine 3.89. Blood sugars running in the 200s to 324. Levemir increased to 16 units at bedtime and continue NovoLog scale every 6 hours. Patient is on tube feedings at goal. She has a Haley catheter in with a scant amount of dark/brown urine. Fecal management system is in place. Repeat chest x-ray reveals diffuse bilateral airspace infiltrates persist unchanged. Patient is scheduled for hemodialysis tomorrow morning on Friday. 09/23: Patient remains on mechanical ventilation with tidal volume 3.75, FiO2 50 and PEEP of 10. bus monitor sinus rhythm. She has no urine output. Fecal management system is in place. She is undergoing dialysis at this time with plan for removal of 2-1/2 L. She has been afebrile, heart rate in the 50s, respiratory rate 36, blood pressure 108/76 and pulse ox 89%. WBC 13.6, hemoglobin 9.1, platelet count 194. Sodium 136, potassium 3.0 and was replaced, chloride 106, CO2 21, BUN 49 creatinine 5.31. Blood sugars are running between 182 and this morning 194. Patient was still in the 200s and 300s. Levemir last evening was increased to 16 units. Patient remains on propofol and fentanyl drips. Lovenox was increased to 60 mg twice daily. 09/24: PEEP was increased today to 20, tidal volume is at 375 and FiO2 of 50%. Patient has been afebrile. She has been started on levo fed. Repeat chest x- ray reveals bilateral multifocal confluent opacities consistent with Covid 19 or ARDS redemonstrated. Nephrology will plan dialysis for tomorrow for 3 L. Patient remains on propofol fentanyl and Nimbex. WBC 12.5, hemoglobin 9.8, platelet count 161. D-dimer 13.3. Sodium 132, potassium 3.4, chloride 102, CO2 20, BUN 48 and creatinine 4.67. Blood sugars extremely elevated to 96-409. LDH 2217. 09/25: Patient remains in the intensive care unit on mechanical ventilation with tidal volume 375, FiO2 50 and PEEP of 20. Patient is afebrile, heart rate 61, respiratory rate 36, blood pressure 102/56, pulse ox 97%. Repeat blood work reveals WBC 9.3, hemoglobin 8.5 and platelet count 171. Sodium 130, potassium 3.7, chloride 100, CO2 20, BUN 61 creatinine 5.65. Blood sugars have been elev ated up to 455. Levemir increased to 20 units twice daily, NovoLog 5 units every 6 hours and continue NovoLog scale. Patient is scheduled for hemodialysis today. Repeat chest x-ray reveals bilateral multifocal and confluent opacities. Decadron and Lovenox dosing change by pulmonary. Patient is off norepinephrine. 09/26: Patient remains in the intensive care unit on mechanical ventilation with tidal volume 375, FiO2 50 and PEEP of 15. She has been afebrile, heart rate 91, blood pressure 114/68, pulse ox 99%. bus monitor sinus rhythm. 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 Sodium 134, potassium 3.6, chloride 102, CO2 22, BUN 41 creatinine 4.21. Patient has improved blood sugars this morning running 150s and 160s. Diabetic medications were adjusted yesterday. Patient is awake and alert and interacting. Yesterday, patient had PICC line inserted by interventional radiology. Repeat chest x-ray reveals diffuse airspace infiltrates in both lung ann appear to progress slightly in the interval. 09/27: Patient remains in intensive care unit on mechanical ventilation with improvement of settings with tidal volume 375, FiO2 decreased to 40 and PEEP decreased to 10. Patient is on hemodialysis every other day and plan to remove 3 L today. Patient is more awake and alert. She is slow to respond but is able to follow simple commands. Blood sugars are running between 84 and 123. Repeat blood work reveals WBC 7.1, hemoglobin 8.1, platelets 152. Sodium 135, potassium 3.6, chloride 103, CO2 21, BUN 53 and creatinine 5.88. Repeat chest x-ray revealed cardiomegaly and pulmonary edema. Patient is on tube feedings:. Patient is not require vasopressors and is off sedation. Fecal management system remains in place for brown liquid stool. C. difficile was negative. 09/28: Patient remains on mechanical ventilation with tidal volume 375, FiO2 increased to 80 and PEEP increased to 18. Patient had a rough night was very anxious, no pain. Xanax 0.25 mg 3 times daily was added. There is concern for pulmonary embolism for which patient was started on heparin drip, she is unable to undergo CAT scan. Venous Doppler bilateral lower extremities was nondiagnostic due to extensive edema in obese patient but minimal imaging of the popliteal veins does show flow. Repeat echocardiogram has been ordered. Cefepime has also been ordered at 1 g IV piggyback every 24 hours as well as vancomycin, pharmacy dosing. Patient is back on fentanyl drip, propofol drip and norepinephrine. Blood sugars are elevated and insulin Levemir will be i ncreased to 25 mg twice daily. Ferrlecit infusion has been ordered by nephrology for 4 days. Patient is undergoing hemodialysis today.temperature max 100.2, heart rate 134, respiratory rate 34, blood pressure 120/65, pulse ox 94%. bus monitor is sinus tachycardia. Repeat blood work reveals WBC 16.9, hemoglobin 9.7, platelet count 216. D-dimer 8.81. Sodium 134, potassium 3.8, chloride 99, CO2 25, BUN 43 and creatinine 5.36. Blood sugars in the 200s. AST 40. 09/29 Patient had declined more last 48 hours require more sedation, patient is doing hemodialysis, respiratory failure is quite bit worse this time. Patient was inquired the pain is well back on fentanyl drip. Her vent set up with PEEP is limited but higher. No new finding on culture and her chest x-ray continues shows diffuse infiltrate persistent although there is a moderate interval improvement. 09/30 patient's was seen and evaluated. PEEP was reduced to 11 as patient is maintaining good saturation at the current vent settings. 10/01 patient was seen at bedside. She is currently on assist control rate of 28 white tidal volume 350 FiO2 50% and PEEP of 10 which has been reduced by pulmonary as patient name cleaning her oxygen saturation. Arm blood gas was obtained with a pH of 7.35 pCO2 37 pO2 of 63. She remains hemodynamically stable with no need for pressors. Labs were reviewed patient's BUN is 29 crea tinine 3.93 glucose 122 albumin 2.2 sodium 131 chloride 19 hemoglobin is downtrending with a Hb of 7.3 no leukocytosis 7.1. Patient's urine output is minimal at this time. Her rate has increased to 129 and is currently on positive fluid balance even with dialysis. Last dialysis was done yesterday. Continue enteral feeding currently at goal. Antibiotic has been discontinued and continues to remain on DEXA methicillin 4 mg IV daily. 10/02 patient continues to be on trach support with mechanical ventilation. Patient was evaluated by crucible packer and was switched to VC control as patient was noted to be double stacking on and off throughout the night. Respiratory rate continue to 28 tidal volume increased to 400 with a PEEP for Dr. Downey. Patient is maintaining oxygen saturation 91% on the current setting. According to the nurse bedside patient saturation drops significantly or she is moved or her sedation is dropped. Patient is currently on propofol drip, fentanyl drip. She did underwent dialysis today and was able to maintain her low pressure without the need of pressors. Labs reviewed today suggest a WBC of 6.7 hemoglobin of 7.0 and d-dimer 3.9 bicarb 17 BUN 38 creatinine 4.8. LDH is 964. Sodium 1:30 likely secondary to volume overload. Urine sodium and urine osmolality ordered. Patient's glucose this morning is 146. Continue to remain on enteral feeding. Urine output is reduced. Fall catheter will be placed today. Continue to remain on dialysis. 10/03: Patient remains on mechanical ventilation and is back on propofol and fentanyl drips. Patient is currently on VC control with tidal volume 400, FiO2 55 and PEEP of 12. Patient still is not making any urine and is dialysis dependent with next treatment planned for tomorrow with removal of 3-3-1/2 L. PEG tube feedings are at goal. Fecal management system remains in place. At the time of evaluation, patient is off levophed. Repeat chest x-ray reveals stable diffuse bilateral airspace disease correlate for ARDS, pulmonary edema or diffuse pneumonia. Temperature max last evening was 101. Temperature currently 99, heart rate 106, respiratory rate 32, blood pressure 101/50, pulse ox 86%. Repeat blood work reveals WBC 6, hemoglobin 7.4, platelet count 160. D-dimer 4.05. Sodium 133, potassium 3.5, chloride 100, CO2 23, BUN 31 creatinine 3.8. Blood sugars are running between 100 and 170. Ferritin 1514. Liver function test normal. LDH 1016, C-reactive protein 13.6. Prognosis remains guarded. 10/04: Patient remains intubated on mechanical ventilation with tidal volume 400, FiO2 65, PEEP of 14. Patient continues to run fevers and repeat blood culture and urine and urine culture ordered for today. Haley catheter has been removed this patient has no significant urine output at about 20 mL per shift. BladderScan is monitored for greater than 300 and the patient is straight cathed. Hemoglobin is 6.8 and she has been ordered 41 unit of packed RBCs today. She is currently on propofol and fentanyl drips. She is scheduled for hemodialysis today. WBC 4.5, hemoglobin 6.8, platelet count 151. D-dimer 3.28. Sodium 132, potassium 4.1, chloride 100, CO2 22, BUN 37 creatinine 4.74. Blood sugars running between 97 and 110. Ferritin 1801. LDH 859. C-reactive protein 14.4. Chest x-ray reveals correlate for pneumonia, edema, ARDS. Prognosis remains guarded. 10/05: Patient remains in intensive care unit currently on mechanical ventilation with tidal volume 400, FiO2 was increased to 100 and PEEP is at 14. She continues to run fevers which have worsened with temperature max 103.1. She has been tachycardic in the 130s, blood pressure is marginal but not on vasopressors. Pulse ox currently 92%. Repeat blood work reveals WBC 5.5, hemoglobin 7.6, platelet count 190. D-dimer 2.7, ferritin 1770, LDH 932, C- reactive protein 21.4. Blood sugars are running between 100 1669. Electrolytes are normal. BUN 27 and creatinine 3.79. Pancultures were done yesterday including a straight cath for urine culture, sputum culture and blood culture. Arterial line was removed as well as midline. She is currently on propofol, fen tanyl and started on Nimbex today. 10/06: Patient remains in the intensive care unit. Today patient in prone position and remains on mechanical ventilation with tidal volume 350, FiO2 65 and PEEP of 14. Her last documented fever was yesterday at 2 PM. Heart rate is in the 120s, respiratory rate 32, pulse ox 88-92%. CBC is unremarkable. Electrolytes are normal. BUN 30 creatinine 2.93. Blood sugars are running between 135 and 164. Cultures from October 04: Blood culture no growth, sputum culture finalized, urine culture finalized. Catheter tip culture is in process. Repeat chest x-ray shows bilateral interstitial infiltrates. Patient is on tube feedings of Nepro at goal of 30 ML's per hour. Patient underwent dialysis yesterday and is scheduled for repeat dialysis today. 10/07: Patient maintains in the intensive care unit intubated and on mechanical ventilation. She is receiving hemodialysis this morning has been every day. Plan is to remove 2-1/2 L today. Vent settings have changed today with tidal volume 350, FiO2 was increased to 100% and PEEP remains at 14. She has been continued on Nimbex, fentanyl, norepinephrine and propofol. Plan is to prone position patient following dialysis. Repeat chest x-ray reveals worsening interstitial infiltrates. BUN is 26 and creatinine 2.59. LDH 955, C-reactive protein 22.1. Prognosis remains poor. 10/08: Patient remains in intensive care unit intubated and on mechanical ventilation with tidal volume 350, FiO2 60, PEEP of 14. She is pronating today. She is scheduled for hemodialysis on a daily basis. She has been afebrile, heart rate 112, respiratory rate 36, blood pressure 161/88, pulse ox 93%. Repeat blood work reveals WBC 9.9, hemoglobin 9.1, platelet count 320. Sodium 133, potassium 5.3, chloride 100, CO2 20, BUN 29 creatinine 2.44. Blood sugar running between 102 and 139. LDH 1026, C-reactive protein 19.7. 10/09: Patient is undergoing dialysis this morning. She continues to be intubated and on mechanical ventilation with tidal volume 350, 270 and PEEP of 14. Patient is also on propofol, Nimbex, norepinephrine and fentanyl drips. Repeat chest x-ray reveals persistent bilateral multifocal and confluent opacities consistent with Covid 19. She is afebrile, heart rate 116, respiratory rate 36, blood pressure 120/65, pulse ox 91%. Repeat blood work reveals WBC 5.4, hemoglobin 9.2, platelet count 216. D-dimer 2.67, ferritin 2568, LDH 794, C- reactive protein 13.9. Blood sugars have been running 90-104. Creatinine 1.64. She is on daily dialysis treatment. REVIEW OF SYSTEMS Unable to obtain due to mechanical ventilation. PHYSICAL EXAMINATION Gen: This is is a 35-year-old black female, patient is intubated and on mechanical ventilation, appears to be comfortable. Patient is in prone position. HEENT: Head is atraumatic, normocephalic. NEUROLOGICAL: Patient is sedated. Full physical examination deferred to crucible packer due to Covid 19 and intubation. ASSESSMENT AND PLAN 1. Acute hypoxic respiratory failure secondary to Covid 19 pneumonia and possible bacterial pneumonia. Patient was intubated on September 11. She is status post 1 dose of Remdesivir and 1 dose of Tocilizumab. Continue Ventolin inhaler 4 times daily, Symbicort twice daily, Decadron 4 mg IV daily, Lovenox 30 mg subcu daily, supplements. Status post PEG tube and trach. 2. Acute diabetic ketoacidosis secondary to Covid 19 pneumonia, uncontrolled with hyperglycemia. Levemir 25 units twice daily, scheduled NovoLog 5 units every 6 hours and NovoLog scale. 3. Metabolic encephalopathy secondary to Covid 19 and DKA. 4. Sepsis and septic shock secondary to Covid 19 pneumonia with multiorgan failure. Continue as in #1. 5. Acute metabolic acidosis secondary to acute DKA, Covid 19 and acute kidney injury. Sodium bicarb 650 mg 3 times daily. 6. Diabetes mellitus type 2 uncontrolled with A1c 13.6. Continue as above. 7. Hypophosphatemia status post replacement. 8. Hyperkalemia secondary to DKA, resolved. 9. Sinus tachycardia secondary to sepsis, volume deficiency.Continue Lopressor 25 mg twice daily. 10. Acute kidney injury secondary to ATN secondary to Covid 19 and DKA. Patient continued on hemodialysis. Permanent dialysis catheter placed. 11. Possible acute gram-negative pneumonia versus MRSA pneumonia. Completed course of antibiotics. 12. Hypertension. 13. Morbid obesity with BMI of 53. 14. DVT prophylaxis. Lovenox. 15. GI prophylaxis. Protonix 40 mg IV push daily. CODE STATUS: Full code Prognosis poor. DISCHARGE PLAN Paralegal Supervisor Acute Care Impression and plan of care have been directed as dictated by the signing physician. Kimberly Boswell nurse practitioner acting as scribe for signing physician. Objective - Vital Signs Vital signs: Vital Signs Temp 99.6 F 10/09/20 08:00 Pulse 118 H 10/09/20 11:00 Resp 36 H 10/09/20 11:00 BP 109/65 10/09/20 11:00 Pulse Ox 91 L 10/09/20 11:00 Intake & Output 10/08/20 10/09/20 10/09/20 18:59 06:59 18:59 Intake Total 8178.692 5298.333 520.658 Output Total 0 Balance 2364.651 0283.333 520.658 Weight 115.2 kg 115.2 kg Intake: IV 103 166 92 0.9 Normal Saline @ KVO 100 130 80 0.9 Normal Saline 3 36 12 Pressure Bag Intake, IV Titration 9908.082 6066.333 348.658 Amount Cisatracurium 200 mg In 392.261 284.951 98.658 Sodium Chloride 0.9% 180 ml @ 1 MCG/KG/MIN 7.308 mls/hr IV .Q24H [facility] Rx#: [id number] Norepinephrine 8 mg In 3.56 57.082 Sodium Chloride 0.9% 250 ml @ 0.05 MCG/KG/MIN 11. 61 mls/hr IV .[id number] [facility] Rx#:[id number] fentaNYL (PF) 2,500 mcg 457.06 250 250 In Sodium Chloride 0.9% 200 ml @ Per Protocol IV .Q0M [facility] Rx#:[id number] propofoL 1,000 mg In 495.4 567.3 Empty Bag 1 bag @ Per Protocol IV .Q0M [facility] Rx#: [id number] Tube Feeding 70 120 50 Other 90 30 Output: Urine 0 Other: Voiding Method Incontinent ABP, PAP, CO, CI - Last Documented Arterial Blood Pressure 130/67 - Labs CBC & Chem 7: 10/09/20 04:28 10/09/20 04:28 Labs: Abnormal Lab Results - Last 24 Hours (Table) 10/08/20 10/08/20 10/08/20 Range/Units 04:34 16:43 17:52 RBC (3.80-5.40) m/uL Hgb (11.4-16.0) gm/dL Hct (34.0-46.0) % RDW (11.5-15.5) % Lymphocytes # (1.0-4.8) k/uL D-Dimer (<0.60) mg/L FEU ABG pH (7.35-7.45) ABG pCO2 (35-45) mmHg ABG pO2 (83-108) mmHg ABG HCO3 (21-25) mmol/L ABG O2 Saturation (94-97) % Chloride (98-107) mmol/L Carbon Dioxide (22-30) mmol/L BUN (7-17) mg/dL Creatinine (0.52-1.04) mg/dL POC Glucose (mg/dL) 129 H 118 H (75-99) mg/dL Ferritin 2681.8 H (10.0-291.0) ng/mL Lactate Dehydrogenase (313-618) U/L C-Reactive Protein (<1.0) mg/dL Total Protein (6.3-8.2) g/dL Albumin (3.5-5.0) g/dL 10/08/20 10/09/20 10/09/20 Range/Units 21:09 04:28 04:28 RBC 3.22 L (3.80-5.40) m/uL Hgb 9.2 L (11.4-16.0) gm/dL Hct 28.8 L (34.0-46.0) % RDW 16.0 H (11.5-15.5) % Lymphocytes # 0.7 L (1.0-4.8) k/uL D-Dimer 2.67 H (<0.60) mg/L FEU ABG pH (7.35-7.45) ABG pCO2 (35-45) mmHg ABG pO2 (83-108) mmHg ABG HCO3 (21-25) mmol/L ABG O2 Saturation (94-97) % Chloride (98-107) mmol/L Carbon Dioxide (22-30) mmol/L BUN (7-17) mg/dL Creatinine (0.52-1.04) mg/dL POC Glucose (mg/dL) 107 H (75-99) mg/dL Ferritin (10.0-291.0) ng/mL Lactate Dehydrogenase (313-618) U/L C-Reactive Protein (<1.0) mg/dL Total Protein (6.3-8.2) g/dL Albumin (3.5-5.0) g/dL 10/09/20 10/09/20 10/09/20 Range/Units 04:28 06:04 06:42 RBC (3.80-5.40) m/uL Hgb (11.4-16.0) gm/dL Hct (34.0-46.0) % RDW (11.5-15.5) % Lymphocytes # (1.0-4.8) k/uL D-Dimer (<0.60) mg/L FEU ABG pH 7.24 L (7.35-7.45) ABG pCO2 47 H (35-45) mmHg ABG pO2 72 L (83-108) mmHg ABG HCO3 20 L (21-25) mmol/L ABG O2 Saturation 91.1 L (94-97) % Chloride 108 H (98-107) mmol/L Carbon Dioxide 19 L (22-30) mmol/L BUN 22 H (7-17) mg/dL Creatinine 1.64 H (0.52-1.04) mg/dL POC Glucose (mg/dL) 104 H (75-99) mg/dL Ferritin 2568.4 H (10.0-291.0) ng/mL Lactate Dehydrogenase 794 H (313-618) U/L C-Reactive Protein 13.9 H (<1.0) mg/dL Total Protein 4.9 L (6.3-8.2) g/dL Albumin 2.2 L (3.5-5.0) g/dL 10/09/20 Range/Units 11:54 RBC (3.80-5.40) m/uL Hgb (11.4-16.0) gm/dL Hct (34.0-46.0) % RDW (11.5-15.5) % Lymphocytes # (1.0-4.8) k/uL D-Dimer (<0.60) mg/L FEU ABG pH (7.35-7.45) ABG pCO2 (35-45) mmHg ABG pO2 (83-108) mmHg ABG HCO3 (21-25) mmol/L ABG O2 Saturation (94-97) % Chloride (98-107) mmol/L Carbon Dioxide (22-30) mmol/L BUN (7-17) mg/dL Creatinine (0.52-1.04) mg/dL POC Glucose (mg/dL) 102 H (75-99) mg/dL Ferritin (10.0-291.0) ng/mL Lactate Dehydrogenase (313-618) U/L C-Reactive Protein (<1.0) mg/dL Total Protein (6.3-8.2) g/dL Albumin (3.5-5.0) g/dL Microbiology - Last 24 Hours (Table) 10/02/20 22:55 Blood Culture - Final Blood No Growth after 144 hours 10/04/20 12:30 Blood Culture - Preliminary Blood No Growth after 96 hours
--- NOTE | 2020-10-09 13:01 | P.PN ---
Subjective Progress Note Date: 10/09/20 CHIEF COMPLAINT: COVID-19 pneumonia HISTORY OF PRESENT ILLNESS: Patient is in the ICU for COVID-19 pneumonia and respiratory failure. She is status post tracheostomy and PEG tube placement with Dr. Hollis. Patient is tolerating tube feedings. Her to feedings are at goal at 30 mL per hour. Patient remains on mechanical ventilation. Patient is currently on propofol, fentanyl, norepinephrine and Nimbex. Patient receiving hemodialysis today. Afebrile. WBC 5.4 hemoglobin 9.2 platelets 217 Patient seen and examined with Dr. hollis PHYSICAL EXAM: VITAL SIGNS: Reviewed. GENERAL: Well-developed in no acute distress. HEENT: No sclera icterus. Extraocular movements grossly intact. Moist buccal mucosa. Head is atraumatic, normocephalic. Tracheostomy site clean dry and intact. No evidence of bleeding ABDOMEN: Soft. Nondistended. Nontender. PEG tube site clean dry and intact NEUROLOGIC: Sedated ASSESSMENT: 1. Acute hypoxic respiratory failure with prolonged mechanical ventilation due to COVID-19 pneumonia status post tracheostomy placement 2. Severe protein calorie malnutrition status post PEG tube placement PLAN: -Continue tube feedings -Continue supportive care -Continue ICU management Physician Cook Specialty note has been reviewed by physician. Signing provider agrees with the documented findings, assessment, and plan of care. Objective - Vital Signs Vital signs: Vital Signs Temp 99.6 F 10/09/20 08:00 Pulse 118 H 10/09/20 11:00 Resp 36 H 10/09/20 11:00 BP 109/65 10/09/20 11:00 Pulse Ox 91 L 10/09/20 11:00 Intake & Output 10/08/20 10/09/20 10/09/20 18:59 06:59 18:59 Intake Total 3142.992 1241.333 520.658 Output Total 0 Balance 1200.188 2715.333 520.658 Weight 115.2 kg 115.2 kg Intake: IV 103 166 92 0.9 Normal Saline @ KVO 100 130 80 0.9 Normal Saline 3 36 12 Pressure Bag Intake, IV Titration 6814.871 4867.333 348.658 Amount Cisatracurium 200 mg In 392.261 284.951 98.658 Sodium Chloride 0.9% 180 ml @ 1 MCG/KG/MIN 7.308 mls/hr IV .Q24H [facility] Rx#: [id number] Norepinephrine 8 mg In 3.56 57.082 Sodium Chloride 0.9% 250 ml @ 0.05 MCG/KG/MIN 11. 61 mls/hr IV .[id number] [facility] Rx#:[id number] fentaNYL (PF) 2,500 mcg 457.06 250 250 In Sodium Chloride 0.9% 200 ml @ Per Protocol IV .Q0M [facility] Rx#:[id number] propofoL 1,000 mg In 495.4 567.3 Empty Bag 1 bag @ Per Protocol IV .Q0M [facility] Rx#: [id number] Tube Feeding 70 120 50 Other 90 30 Output: Urine 0 Other: Voiding Method Incontinent ABP, PAP, CO, CI - Last Documented Arterial Blood Pressure 130/67 - Labs CBC & Chem 7: 10/09/20 04:28 10/09/20 04:28 Labs: Abnormal Lab Results - Last 24 Hours (Table) 10/08/20 10/08/20 10/08/20 Range/Units 04:34 16:43 17:52 RBC (3.80-5.40) m/uL Hgb (11.4-16.0) gm/dL Hct (34.0-46.0) % RDW (11.5-15.5) % Lymphocytes # (1.0-4.8) k/uL D-Dimer (<0.60) mg/L FEU ABG pH (7.35-7.45) ABG pCO2 (35-45) mmHg ABG pO2 (83-108) mmHg ABG HCO3 (21-25) mmol/L ABG O2 Saturation (94-97) % Chloride (98-107) mmol/L Carbon Dioxide (22-30) mmol/L BUN (7-17) mg/dL Creatinine (0.52-1.04) mg/dL POC Glucose (mg/dL) 129 H 118 H (75-99) mg/dL Ferritin 2681.8 H (10.0-291.0) ng/mL Lactate Dehydrogenase (313-618) U/L C-Reactive Protein (<1.0) mg/dL Total Protein (6.3-8.2) g/dL Albumin (3.5-5.0) g/dL 10/08/20 10/09/20 10/09/20 Range/Units 21:09 04:28 04:28 RBC 3.22 L (3.80-5.40) m/uL Hgb 9.2 L (11.4-16.0) gm/dL Hct 28.8 L (34.0-46.0) % RDW 16.0 H (11.5-15.5) % Lymphocytes # 0.7 L (1.0-4.8) k/uL D-Dimer 2.67 H (<0.60) mg/L FEU ABG pH (7.35-7.45) ABG pCO2 (35-45) mmHg ABG pO2 (83-108) mmHg ABG HCO3 (21-25) mmol/L ABG O2 Saturation (94-97) % Chloride (98-107) mmol/L Carbon Dioxide (22-30) mmol/L BUN (7-17) mg/dL Creatinine (0.52-1.04) mg/dL POC Glucose (mg/dL) 107 H (75-99) mg/dL Ferritin (10.0-291.0) ng/mL Lactate Dehydrogenase (313-618) U/L C-Reactive Protein (<1.0) mg/dL Total Protein (6.3-8.2) g/dL Albumin (3.5-5.0) g/dL 10/09/20 10/09/20 10/09/20 Range/Units 04:28 06:04 06:42 RBC (3.80-5.40) m/uL Hgb (11.4-16.0) gm/dL Hct (34.0-46.0) % RDW (11.5-15.5) % Lymphocytes # (1.0-4.8) k/uL D-Dimer (<0.60) mg/L FEU ABG pH 7.24 L (7.35-7.45) ABG pCO2 47 H (35-45) mmHg ABG pO2 72 L (83-108) mmHg ABG HCO3 20 L (21-25) mmol/L ABG O2 Saturation 91.1 L (94-97) % Chloride 108 H (98-107) mmol/L Carbon Dioxide 19 L (22-30) mmol/L BUN 22 H (7-17) mg/dL Creatinine 1.64 H (0.52-1.04) mg/dL POC Glucose (mg/dL) 104 H (75-99) mg/dL Ferritin 2568.4 H (10.0-291.0) ng/mL Lactate Dehydrogenase 794 H (313-618) U/L C-Reactive Protein 13.9 H (<1.0) mg/dL Total Protein 4.9 L (6.3-8.2) g/dL Albumin 2.2 L (3.5-5.0) g/dL 10/09/20 Range/Units 11:54 RBC (3.80-5.40) m/uL Hgb (11.4-16.0) gm/dL Hct (34.0-46.0) % RDW (11.5-15.5) % Lymphocytes # (1.0-4.8) k/uL D-Dimer (<0.60) mg/L FEU ABG pH (7.35-7.45) ABG pCO2 (35-45) mmHg ABG pO2 (83-108) mmHg ABG HCO3 (21-25) mmol/L ABG O2 Saturation (94-97) % Chloride (98-107) mmol/L Carbon Dioxide (22-30) mmol/L BUN (7-17) mg/dL Creatinine (0.52-1.04) mg/dL POC Glucose (mg/dL) 102 H (75-99) mg/dL Ferritin (10.0-291.0) ng/mL Lactate Dehydrogenase (313-618) U/L C-Reactive Protein (<1.0) mg/dL Total Protein (6.3-8.2) g/dL Albumin (3.5-5.0) g/dL Microbiology - Last 24 Hours (Table) 10/02/20 22:55 Blood Culture - Final Blood No Growth after 144 hours 10/04/20 12:30 Blood Culture - Preliminary Blood No Growth after 96 hours
[2020-10-09] MEDS: SODIUM CHLORIDE 0.9% 500 ML 500 ML IV SCH (13:48)
--- NOTE | 2020-10-09 14:33 | PN ---
PROGRESS NOTE Patient is seen for followup for acute kidney injury. Currently hemodialysis dependent. Patient is currently being dialyzed daily, mostly for volume overload. She remains on the vent requiring high PEEP at 14 and FiO2 currently at 70%. We have been able to get 3-3.5 L almost on a daily basis. PHYSICAL EXAMINATION: On examination today, patient is currently on the vent. She is sedated. Case is discussed with nursing staff and dialysis nurse. Blood pressure is 133/83, heart rate 117 per minute, she is afebrile. Tolerating tube feeds. Edema seems to have improved but patient remains with at least 1+ edema upper and lower extremities bilaterally. LABS: Show sodium 137, potassium 4.2, chloride 108, CO2 is 19, BUN 22, creatinine 1.64. Hemoglobin 9.2 g/dL. ASSESSMENT: 1. Acute kidney injury, currently hemodialysis dependent. The patient is oliguric. She is also volume overloaded. We will plan for dialysis again tomorrow. 2. Metabolic acidosis. We will dialyze her on a higher bicarb bath. 3. Covid pneumonia. 4. Acute hypoxic respiratory failure secondary to ARDS/pneumonia. PLAN: Repeat dialysis in a.m. MMODL / IJN: [id number] /
[2020-10-09 17:42] LABS: Glucose,Whole Blood 104 mg/dL (75-99)
[2020-10-09] MEDS: NOREPINEPHRINE 8 MG in SODIUM CHLORIDE 0.9% 250 ML IV SCH ×2 (17:46→22:46)
[2020-10-09 20:15] LABS: Glucose,Whole Blood 102 mg/dL (75-99)
[2020-10-09 23:36] LABS: Glucose,Whole Blood 98 mg/dL (75-99)
[2020-10-10] MEDS: ARTIFICIAL TEARS-HYPROMELLOSE DROPS 15 ML BTL BOTH EYES SCH ×5 (04:23→20:28)
[2020-10-10 05:04] LABS: Potassium 3.9 mmol/L (3.5-5.1)
[2020-10-10 05:13] LABS: Anisocytosis Slight; HCT 23.1 % (34.0-46.0); Hypochromasia Moderate; MCH 28.5 pg (25.0-35.0); MCHC 32.4 g/dL (31.0-37.0); MCV 88.1 fL (80.0-100.0); Mean Platelet Volume 8.3; Platelet Count 267 k/uL (150-450); Poikilocytosis Slight; RBC 2.63 m/uL (3.80-5.40); RDW 16.2 % (11.5-15.5); WBC 7.8 k/uL (3.8-10.6)
[2020-10-10 05:19] LABS: ABG Base Excess -5.2 mmol/L; ABG HCO3 21 mmol/L (21-25); ABG Oxygen Saturation 94.2 % (94-97); ABG PCO2 45 mmHg (35-45); ABG PH 7.29 (7.35-7.45); ABG PO2 79 mmHg (83-108); ABG TCO2 23 mmol/L (19-24); Allen Test Performed? Yes
[2020-10-10] MEDS: fentaNYL (PF) 2,500 MCG in SODIUM CHLORIDE 0.9% 200 ML IV SCH ×3 (05:35→23:17)
[2020-10-10] MEDS: INSULIN ASPART (NovoLOG) 100 UNIT/ML VIAL SQ SCH ×7 (05:39→18:09)
[2020-10-10 05:40] LABS: Glucose,Whole Blood 102 mg/dL (75-99)
[2020-10-10] MEDS: CISATRACURIUM 200 MG in SODIUM CHLORIDE 0.9% 180 ML IV SCH ×4 (05:40→23:18)
[2020-10-10 05:42] LABS: HGB 7.5 gm/dL (11.4-16.0)
--- NOTE | 2020-10-10 06:51 | P.PN ---
Subjective Progress Note Date: 10/10/20 Principal diagnosis: Acute respiratory failure secondary to Covid 19 pneumonia. Patient was reevaluated today on 10/05/2020, remains in the ICU, intubated, mechanically ventilated, patient is doing worse today compared to the last few days, her chest x-ray is worsening, her O2 requirement is rising and she is back on the percent FiO2, I have also increased her PEEP to 16, assist control rate was increased to 52, FiO2 is on the percent. ABG earlier today on 70% FiO2 showed a pO2 of 56 pCO2 of 50 pH of 7.32. She was on assist control rate of 28 tidal volume of 400 FiO2 70% and PEEP of 14. Patient had to be placed on a higher dose of propofol which was increased to 70 fentanyl is at 2 mcg/kg/m, patient will be placed on Nimbex as I'm having difficulty oxygenating the pat ient in spite of high FiO2. She is scheduled to undergo hemodialysis again today, she had 4 L off yesterday. Remains on tube feeds using vital AF at 30 MLS per hour. Patient is tachycardic rate is 129, blood pressure is marginal 86/45, hence may recommend adding norepinephrine. The overall picture clearly showing deterioration in this patient's clinical status, and I have a feeling that this patient will continue to do poorly and she is now maximized on treatment. Again her chest x-ray is showing significant worsening of her infiltrates. Patient was reevaluated today on 10/06/2020, remains in the ICU, intubated and mechanically ventilated, and she is presently in prone position since last night for the next few hours until dialysis which is supposed to start sometime in the next couple of hours. Patient remains on assist control mode of mechanical ventilation, it is volume control with volume of 350 rate of 3 to FiO2 65%. 14. Her ABG showed a pO2 of 68 pCO2 of 52 pH of 7.28. Patient remains on propofol at 75 fentanyl at 3 mcg/kg/h she is also on norepinephrine at 0.02 and Nimbex at 3 mcg/kg/m. Patient is scheduled to have hemodialysis today. Chest x-ray continues to show evidence of bilateral interstitial infiltrates. Patient is on enteral feeding in the form of Nepro at 30/30. Patient has been proned now for the last 17 hours. Electrolytes are normal however her BUN is 30 creatinine 2.93. Blood sugar is 147 WBC count is 5.1 hemoglobin is 11.4. Patient remains on the COVID-19 cocktail. Remains on albuterol, Symbicort, Decadron 4 mg IV push daily, Lovenox 30 mg subcu daily. Insulin protocol. Her tonic 40 mg IV push daily. Off antibiotics. Patient was reevaluated today on 10/07/2020, remains in the ICU, intubated and mechanically ventilated, presently receiving hemodialysis. She is on assist control rate of 32, tidal volume of 350, FiO2 is up to on the percent today, and PEEP of 14. Higher PEEP did not seem to help much, hence I kept her on a PEEP of 14. ABG today showed a pO2 of 63 pCO2 53 pH of 7.25. A shunt is on Nimbex at 4 mcg/kg/m, fentanyl 3 mcg/kg/h, norepinephrine at 0.07 mcg/kg/m, propofol at 75 mcg/kg/m. Again the patient is receiving hemodialysis, and I have instructed the nurses today to go back into prone position after she is done with dialysis. Chest x-ray continues to show worsening interstitial infiltrates and ARDS pic ture. Labs were all reviewed. Her medications were all reviewed today. Basic metabolic profile is normal BUN is 26 creatinine 2.59. LDH is 955 and C- reactive protein is 22.1. Not much of a change in the last few days. Patient was reevaluated today on 10/08/2020, remains in the ICU, intubated and mechanically ventilated, patient is presently in prone position her ABG this morning showed significant improvement in her oxygenation, however continues to have a combined metabolic and respiratory acidosis. She is now on assist control of 350 rate of 36 FiO2 down to 60% PEEP at 14. ABG on 100% showed a pO2 of 209 pCO2 of 59 pH of 7.15. Her assist control rate was increased to 36. Kept her on the same tidal volume of 350. 2 A of bicarb were given. Patient is also on bicarb drip. Patient remains on propofol at 75 mcg/kg/m, she is on Nimbex at 4 mcg/kg/m, and norepinephrine at 0.01 mcg/kg/m. Patient is also on fentanyl at 3 mcg/kg per hour. During my evaluation, the patient was in prone position, however should be placed back in supine position once dialysis is ready and the patient will be dialyzed again today. Chest x-ray from yesterday continues to show evidence of interstitial edema and ARDS. No chest x-ray has been done yet today because the patient was in prone position. Patient remains on Decadron, remains on Lovenox, she is off antibiotics for now. CBC showed WBC 9.9 hemoglobin is 9.1. Hematocrit is 28.7. Electrodes are normal. BUN is 29 and creatinine 2.44. Bicarb is 20. LDH is up a bit 1026, C-reactive protein is about the same at 19.7. Progress note dated 10/09/2020. This is a 35-year-old black female with history of acute COVID 19 infection, with acute hypoxemic respiratory failure. She was admitted way back on September 10. Because of failure to wean from mechanical ventilation, she underwent tracheostomy and PEG tube placement on September 18. Currently remains on the ventilator. She is on the VC + (PRVC) modality, with a targeted tidal volume 350 and inspiratory time of 0.9 seconds. Her rate is set at 36. FiO2 70%, and PEEP of 14. On those settings, her arterial blood gases show a PaO2 of 72, pCO2 47, and pH 7.23. Currently, the patient's getting daily hemodialysis. Her drips including propofol at 75 mcg/kg/m, Nimbex at 3.5 mcg/kg/m, with [id number] monitoring, fentanyl at 3 g kilogram per hour, norepinephrine at 7 mcg/m, saline at 20 mL an hour, and vital 1.2 at 10 mL an hour, which is goal. White count 5.4, hemoglobin 9.2, hematocrit 28.8, and platelet count 217,000. Sodium 137, potassium 4.2, chlorides 108, CO2 19, anion gap 10, BUN 22, and creatinine 1.64. The patient's chest x-ray is consistent with bilateral infilt rates, and is essentially unchanged, and consistent with a diagnosis of coronavirus pneumonia. Progress note dated 10/10/2020. 35-year-old black female, with a history of COVID 19 infection and acute hypoxemic respiratory failure. She was admitted way back on September 10. Because of failure to wean from mechanical ventilation, she underwent tracheostomy and PEG tube placement on September 18. She remains on the mechanical ventilator. She is on the pressure regulated volume control modality. Her targeted tidal volume is 350 mL, and her inspiratory time 0.9 seconds. The patient's on 70% FiO2, PEEP o f 14, with a rate of 36. The patient is receiving Nimbex at 4.5 mcg/kg/m, propofol at 65 mcg/kg/m, norepinephrine at 3.5 mcg/m, fentanyl at 2.5 mcg/kg/h, and vital AF 1.2 at 10 mL an hour which is goal. The patient's blood gases from this morning show a PaO2 of 79, 5, and a pH is 7.29. Today's chest x-ray is currently still pending. Overnight, there've been no major changes in her condition. White count 7.8, hemoglobin 7.5, hematocrit 23.1, and platelet count 267,000. Sodium 139, potassium 3.9, chlorides 109, CO2 20, anion gap 10, BUN 20, with creatinine 1.29. Objective - Vital Signs Vital signs: Vital Signs Temp 98.9 F 10/10/20 04:00 Pulse 112 H 10/10/20 06:00 Resp 36 H 10/10/20 06:00 BP 108/59 10/10/20 06:00 Pulse Ox 94 L 10/10/20 06:00 Intake & Output 10/09/20 10/09/20 10/10/20 06:59 18:59 06:59 Intake Total 2704.040 7209.874 1561.999 Output Total 3000 0 Balance 1535.333 -6832.575 3682.999 Weight 115.2 kg 115.2 kg 118 kg Intake: IV 166 276 230 0.9 Normal Saline @ KVO 130 240 200 0.9 Normal Saline 36 36 30 Pressure Bag Intake, IV Titration 0528.542 3803.874 1141.999 Amount Cisatracurium 200 mg In 284.951 298.658 343.841 Sodium Chloride 0.9% 180 ml @ 1 MCG/KG/MIN 7.308 mls/hr IV .Q24H [facility] Rx#: [id number] Norepinephrine 8 mg In 57.082 43.216 27.438 Sodium Chloride 0.9% 250 ml @ 0.05 MCG/KG/MIN 11. 61 mls/hr IV .[id number] [facility] Rx#:[id number] fentaNYL (PF) 2,500 mcg 250 500.000 402.24 In Sodium Chloride 0.9% 200 ml @ Per Protocol IV .Q0M [facility] Rx#:[id number] propofoL 1,000 mg In 567.3 300 368.48 Empty Bag 1 bag @ Per Protocol IV .Q0M [facility] Rx#: [id number] Tube Feeding 120 140 100 Other 90 30 90 Output: Urine 0 0 Hemodialysis 3000 Other: Voiding Method Incontinent Incontinent ABP, PAP, CO, CI - Last Documented Arterial Blood Pressure 116/59 - Exam No acute distress, sedated and paralyzed, with a midline tracheostomy tube. HEENT examination is grossly unremarkable. Neck supple. Full range of motion. No adenopathy thyromegaly or neck vein distention. Midline tracheostomy tube noted. Cardiovascular examination reveals regular rhythm rate. S1-S2 normal. No S3 or S4. No discernible murmur noted. Heart sounds are distant. Heart rate 112 beats per minute. Lungs reveal diffuse coarse rhonchi and bilateral crackles. No wheezes. Breath sounds equal bilaterally but diminished throughout. Abdomen soft bowel sounds are heard. No masses or tenderness. PEG tube noted. Extremities are intact. No cyanosis clubbing or edema. Skin is without rash or lesion. Neurologic examination cannot be adequately assessed as the patient's currently sedated and paralyzed. - Labs CBC & Chem 7: 10/10/20 04:29 10/10/20 04:29 Labs: Abnormal Lab Results - Last 24 Hours (Table) 10/09/20 10/09/20 10/09/20 Range/Units 04:28 11:54 17:41 RBC (3.80-5.40) m/uL Hgb (11.4-16.0) gm/dL Hct (34.0-46.0) % RDW (11.5-15.5) % ABG pH (7.35-7.45) ABG pO2 (83-108) mmHg Chloride (98-107) mmol/L Carbon Dioxide (22-30) mmol/L BUN (7-17) mg/dL Creatinine (0.52-1.04) mg/dL POC Glucose (mg/dL) 102 H 104 H (75-99) mg/dL Ferritin 2568.4 H (10.0-291.0) ng/mL 10/09/20 10/10/2021 Range/Units 20:14 04:29 04:29 RBC 2.63 L (3.80-5.40) m/uL Hgb 7.5 L D (11.4-16.0) gm/dL Hct 23.1 L (34.0-46.0) % RDW 16.2 H (11.5-15.5) % ABG pH (7.35-7.45) ABG pO2 (83-108) mmHg Chloride 109 H (98-107) mmol/L Carbon Dioxide 20 L (22-30) mmol/L BUN 20 H (7-17) mg/dL Creatinine 1.29 H (0.52-1.04) mg/dL POC Glucose (mg/dL) 102 H (75-99) mg/dL Ferritin (10.0-291.0) ng/mL 10/10/20 10/10/20 Range/Units 05:15 05:38 RBC (3.80-5.40) m/uL Hgb (11.4-16.0) gm/dL Hct (34.0-46.0) % RDW (11.5-15.5) % ABG pH 7.29 L (7.35-7.45) ABG pO2 79 L (83-108) mmHg Chloride (98-107) mmol/L Carbon Dioxide (22-30) mmol/L BUN (7-17) mg/dL Creatinine (0.52-1.04) mg/dL POC Glucose (mg/dL) 102 H (75-99) mg/dL Ferritin (10.0-291.0) ng/mL Microbiology - Last 24 Hours (Table) 10/04/20 12:30 Blood Culture - Preliminary Blood No Growth after 120 hours Assessment and Plan Assessment: Acute hypoxemic respiratory failure, secondary to COVID 19 pneumonia, with ARDS, with admission to hospital on September 10, transferred to ICU on the , intubation on September 11, and tracheostomy and PEG tube placement on September 18. Acute respiratory distress syndrome (ARDS). Acute kidney injury, currently on hemodialysis. Acute diabetic ketoacidosis, resolved. Sepsis, secondary to COVID 19 pneumonia. Poorly controlled type 2 diabetes. Elevated inflammatory markers secondary to coronavirus infection. History of essential hypertension. Generalized anxiety disorder. Morbid obesity. Plan: Plan dated 10/09/2020. The patient remains on the pressure regulated volume control mode of ventilation. The patient is being nourished at goal. The patient remains on propofol, Nimbex, and fentanyl. In addition, the patient remains on norep inephrine. Labs, x-rays, and medications are all reviewed. Prognosis is very poor. We will continue to follow. Additional recommendations and suggestions are forthcoming. The patient remains on daily hemodialysis. Plan dated 10/10/2020. The patient remains about the same. She remains on the ventilator. The patient is status post tracheostomy and PEG tube placement. She remains sedated with propofol and fentanyl. She is also chemically paralyzed with Nimbex. She remains on norepinephrine at 8.5 mcg/m for low blood pressure. Cultures are all negative. She remains on periodic hemodialysis. Additional recommendations and suggestions are forthcoming. Diagnosis is guarded. We will continue to follow make recommendations where appropriate. Time with Patient: Greater than 30
[2020-10-10] MEDS: SYMBICORT 160-4.5 MCG INHALER INHALATION SCH ×2 (07:35→20:20)
[2020-10-10] MEDS: ALBUTEROL HFA INHALER INHALATION SCH ×4 (07:35→20:20)
[2020-10-10 08:24] LABS: Glucose,Whole Blood 78 mg/dL (75-99)
[2020-10-10] MEDS: INSULIN DETEMIR (LEVEMIR) 100 UNIT/ML SYR SQ SCH ×2 (08:27→20:26)
[2020-10-10] MEDS: DEXAMETHASONE SOD PHOSPHATE 4 MG/ML 1 ML VIAL IV SCH (08:29)
[2020-10-10] MEDS: ASCORBIC ACID 500 MG TAB PO SCH ×2 (08:30→20:26)
[2020-10-10] MEDS: CHOLECALCIFEROL 25 MCG (1000 IU) TABLET PO SCH (08:30)
[2020-10-10] MEDS: SODIUM BICARBONATE TAB 650 MG TAB PO SCH ×3 (08:30→20:26)
[2020-10-10] MEDS: ENOXAPARIN 30 MG/0.3 ML SYRINGE SQ SCH (08:30)
[2020-10-10] MEDS: ZINC SULFATE 220 MG CAP PO SCH (08:30)
[2020-10-10] MEDS: PANTOPRAZOLE 40 MG/10 ML VIAL IVP SCH (08:31)
[2020-10-10] MEDS: SEVELAMER 800 MG TAB PO SCH ×3 (08:31→16:50)
--- NOTE | 2020-10-10 09:00 | XR ---
EXAMINATION TYPE: XR chest 1V portable DATE OF EXAM: 10/10/2020 Comparison: 10/09/2020 Clinical History: 35-year-old female vent Findings: Tracheostomy cannula. Right-sided double-lumen hemodialysis catheter with tips at the lower SVC. Mode rate cardiomegaly. Diffuse interstitial and airspace opacity persists. Aeration is minimally improved . Trace effusions. Right PICC tip at the mid SVC level. Impression: Moderate cardiomegaly and continued pulmonary edema. There has been slight interval improvement.
--- NOTE | 2020-10-10 10:07 | P.PN ---
Subjective Patient is seen in follow-up for acute kidney injury. Has been undergoing daily dialysis. Tolerating dialysis well. Vasopressors currently held. Oliguric. Status post tracheostomy and PEG tube placement this admission. Receiving tube feeding. Currently on 70% FiO2. Vital signs: Stable. General: The patient appeared well nourished and normally developed. HEENT: Tracheostomy noted. LUNGS: Breath sounds decreased. HEART: Regular rate and rhythm. Abdomen: Soft, no distention. EXTREMITITES: 1+ edema. Objective - Vital Signs Vital signs: Vital Signs Temp 98.3 F 10/10/20 08:00 Pulse 114 H 10/10/20 08:00 Resp 36 H 10/10/20 08:00 BP 126/89 10/10/20 08:00 Pulse Ox 94 L 10/10/20 08:00 Intake & Output 10/09/20 10/10/20 10/10/20 18:59 06:59 18:59 Intake Total 3815.614 2467.999 76 Output Total 3000 0 Balance -9833.702 2656.999 76 Weight 115.2 kg 118 kg Intake: IV 276 253 46 0.9 Normal Saline @ KVO 240 220 40 0.9 Normal Saline 36 33 6 Pressure Bag Intake, IV Titration 3700.472 3512.999 Amount Cisatracurium 200 mg In 298.658 343.841 Sodium Chloride 0.9% 180 ml @ 1 MCG/KG/MIN 7.308 mls/hr IV .Q24H [facility] Rx#: [id number] Norepinephrine 8 mg In 43.216 27.438 Sodium Chloride 0.9% 250 ml @ 0.05 MCG/KG/MIN 11. 61 mls/hr IV .[id number] [facility] Rx#:[id number] fentaNYL (PF) 2,500 mcg 500.000 402.24 In Sodium Chloride 0.9% 200 ml @ Per Protocol IV .Q0M [facility] Rx#:[id number] propofoL 1,000 mg In 300 368.48 Empty Bag 1 bag @ Per Protocol IV .Q0M [facility] Rx#: [id number] Tube Feeding 140 110 30 Other 30 90 Output: Urine 0 0 Hemodialysis 3000 Other: Voiding Method Incontinent Incontinent Incontinent ABP, PAP, CO, CI - Last Documented Arterial Blood Pressure 121/61 - Labs CBC & Chem 7: 10/10/20 04:29 10/10/20 04:29 Labs: Abnormal Lab Results - Last 24 Hours (Table) 10/09/20 10/09/20 10/09/20 Range/Units 04:28 11:54 17:41 RBC (3.80-5.40) m/uL Hgb (11.4-16.0) gm/dL Hct (34.0-46.0) % RDW (11.5-15.5) % ABG pH (7.35-7.45) ABG pO2 (83-108) mmHg Chloride (98-107) mmol/L Carbon Dioxide (22-30) mmol/L BUN (7-17) mg/dL Creatinine (0.52-1.04) mg/dL POC Glucose (mg/dL) 102 H 104 H (75-99) mg/dL Ferritin 2568.4 H (10.0-291.0) ng/mL 10/09/20 10/10/20 10/10/20 Range/Units 20:14 04:29 04:29 RBC 2.63 L (3.80-5.40) m/uL Hgb 7.5 L D (11.4-16.0) gm/dL Hct 23.1 L (34.0-46.0) % RDW 16.2 H (11.5-15.5) % ABG pH (7.35-7.45) ABG pO2 (83-108) mmHg Chloride 109 H (98-107) mmol/L Carbon Dioxide 20 L (22-30) mmol/L BUN 20 H (7-17) mg/dL Creatinine 1.29 H (0.52-1.04) mg/dL POC Glucose (mg/dL) 102 H (75-99) mg/dL Ferritin (10.0-291.0) ng/mL 10/10/20 10/10/20 Range/Units 05:15 05:38 RBC (3.80-5.40) m/uL Hgb (11.4-16.0) gm/dL Hct (34.0-46.0) % RDW (11.5-15.5) % ABG pH 7.29 L (7.35-7.45) ABG pO2 79 L (83-108) mmHg Chloride (98-107) mmol/L Carbon Dioxide (22-30) mmol/L BUN (7-17) mg/dL Creatinine (0.52-1.04) mg/dL POC Glucose (mg/dL) 102 H (75-99) mg/dL Ferritin (10.0-291.0) ng/mL Microbiology - Last 24 Hours (Table) 10/04/20 12:30 Blood Culture - Preliminary Blood No Growth after 120 hours Assessment and Plan Plan: Assessment: 1. Acute kidney injury secondary to ATN secondary to COVID-19 and DKA. Baseline creatinine is near 1. Started on hemodialysis on September 14. Has p-cath. Oliguric. No hydronephrosis noted on kidney ultrasound. 2. DKA s/p insulin drip and IV fluids. 3. Acute hypoxic respiratory failure secondary to COVID-19 pneumonia. Status post tracheostomy this admission. 4. Metabolic acidosis secondary to acute kidney injury and DKA s/p bicarb drip. Maintained on oral bicarbonate. 5. Hyponatremia, hypervolemic. Stable. Blood sugar stable. 6. Hyperphosphatemia secondary to acute kidney injury. Maintained on Renvela. 7. Anemia of chronic illness and kidney disease. Maintained on Aranesp. Iron deficiency noted - s/p iv iron. 8. Fluid overload. Plan: Currently seen while undergoing hemodialysis. Another treatment tomorrow mostly for ultrafiltration. Maintain tube feeds. Avoid nephrotoxins. Continue to monitor renal function and urine output. Monitor for renal recovery. Wean FiO2.
[2020-10-10] MEDS: SODIUM CHLORIDE 0.9% 500 ML 500 ML IV SCH (10:57)
[2020-10-10 11:18] LABS: Glucose,Whole Blood 88 mg/dL (75-99)
--- NOTE | 2020-10-10 11:49 | P.PN ---
Subjective Progress Note Date: 10/10/20 HISTORY OF PRESENT ILLNESS 35-year-old female patient of Dr. Arroyo with past medical history of type 2 diabetes comes in with acute shortness of breath associated with high light s ugars. Patient on admission was found to have a fever of 101.5 pulse rate 125 respiratory rate 20. Blood pressure 132/106. On chest x-ray obtained in the ER suggestive of bilateral infiltrates concerning for call with pneumonia. COVID PCR was positive. On admissions patient had an ABG with a pH of 7.14 pCO2 of 20, pO2 of 59, bicarb of 7. Patient's blood sugar on admission was 424 on assessment today patient's blood work patient had a sodium 135 potassium 5.4 chloride 123 bicarb less than 5 and creatinine 0.73. D-dimer was elevated on admission patient 9 28 patient given 1 L of IV fluids followed by normal saline running at 200 mL/h. Patient was positive for acetone on admission. She will anion gap closed and was switched to D5NS. Insulin drip was continued during the night and was switched to patient's home medication this morning. One dose of remdesiver was ordered. Apparently around noon, A- team was called on the patient secondary to hypoxia patient's oxygen saturation dropped to the 70s and 80s on 100% nonrebreather. Patient was switched to BiPAP on 18/12 and is doing better o FiO2 of 80%. ABG was obtained and ph was 7. 14 pCO2 of 28 bicarb of 7 pO2 of 17. Patient noted to have uncompensated metabolic acidosis with compensated respiratory alkalosis. Stat dose of 1 amp bicarb was given and followed by sodium bicarbonate drip. Insulin drip restarted. Patient's initiated on dexamethasone 6 mg IV twice a day. Potassium phosphate ordered as phosphorus is low. Patient's repeat blood gases suggest a pH of 7.25, CO2 32 pO2 of 72 bicarb 14. I will not normal saline at 100 mL/h as patient's anion gap has increased. Patient given 1 dose of 2 mg of morphine with improvement in respiratory rate. One dose of Ativan 0.5 mg was given. Xanax 0.25 twice a day along with Ativan 0.5 IV every 6 hours ordered for the patient. Vitals were evaluated patient pulse 129 [id number]. She was moved to the ICU. Precedex drip was initiated. Lopressor was initiated at 25 twice a day. Metoprolol tartrate 5 mg IV every 6 hours. Systolic blood pressure more than 160. Started chest x-ray was obtained and suggest stable bilateral consolidation suggestive of COVID-19 pneumonia. 09/12 patient is seen in the ICU is currently mechanically ventilated and sedated on vent settings of respiratory rate 36, tidal volume 375 FiO2 80% PEEP of 18.. Vital signs reviewed patient had a temp of 100.4 pulse 150 respiratory rate 36 oxygen saturation 95% on 80% on fio2 .'s labs are reviewed which patient had a d-dimer 1.84 that is increased to 14.3. Arterial Blood gas suggest ph 7.35, CO2 40, po2 62, . Her BMP suggest a sodium 135 potassium 3.7 chloride 112 bicarb 21 creatinine 1.57 for calcitonin is 3.5 CRP is increased from 8.78.2 LDH is increased to 2614. Patient remains on Pneumovax, propofol drip. Lovenox increased to 50 subcu twice a day. Patient received 2 L of IV fluids. Continue IV fluids at 100 mL/h. Bicarb drip discontinued patient initiated on Zosyn 3.375 every 8 hours. Continue insulin drip at 4 units per hour. Patient is currently in prone positioning 09/13: Patient evaluated in the ICU remains on Ventilation continues to be sedated, in prone position. Vent settings are respiratory rate 36, tidal vital 375, FiO2 70% PEEP of 18. ABG shows pO2 of 82, PCO2 of 39, pH is 7.19. Latest labs show WBC 11.1, hemoglobin 13.2, d-dimer still pending, but yesterday was up to 14.3. Creatinine up to 3.4, BUN 24 sodium 137, potassium 4.0. Patient's urine output has been low, nephrology on consult. Bicarb drip increased to 100 miles an hour, receiving another liter of normal saline, she did have a ultrasound that showed unremarkable bilateral kidneys. Repeat chest x-ray showed bilateral lung infiltrates that are stable. Anion gap has closed, will start Lantus 10 units at at bedtime Novolog every 6 hours. 09/14: Patient is seen in the ICU, still currently mechanically ventilated and sedated. She continues in the prone position. Her oxygen quickly drops if she is not in prone. Patient's kidney function has worsened. Laboratory values show creatinine of 4.87, BUN 33, LDH 2191, C-reactive protein 2.7. ABG shows pH 7.32, pO2 of 60, pCO2 43. Patient is making almost no urine overnight. Nephrology is following patient continues on cefepime for urinary tract infection, culture is still pending. Vascular has been consulted for placement of temporary hemodialysis catheter for plans for dialysis. 09/15: Patient evaluated in the ICU, continues to be mechanically ventilated and sedated on assist control ventilation rate of 36, tidal volume 375, FiO2 100% and PEEP of 18. ABG today shows pO2 58, pCO2 of 45, and pH 7.35. She continues on tube feedings. Yesterday patient underwent ultrasound-guided right internal jugular non-tunneled hemodialysis catheter placement. Patient underwent hemodialysis treatment last night and plans have another hemodialysis treatment today. She continues to make almost no urine. She continues on cefepime for antibiotic coverage, and continues on Decadron and Lovenox. 09/16: Patient seen on follow-up remains in the ICU mechanically ventilated and sedated. She continues on assist control rate of 36, tidal volume 375, FiO2 100% and PEEP of 20. PEEP had to be increased due to patient had to be in supine position for dialysis, will go back to prone position once dialysis is complete. ABG shows pH 7.32, pCO2 49, PaO2 61. Laboratory values showed WBC 11.2, hemoglobin 11, sodium 134, creatinine 4.44, BUN 38. Urine culture shows no growth, blood cultures show no growth to date. Repeat chest x-ray shows bilateral pleural effusions, correlate for ARDS, pulmonary edema, diffuse pneumonia, findings are stable from last exam. Patient does not require any pressors, blood pressure 133/57, heart rate 78. 5/16: Patient was evaluated in the ICU today for follow-up. She continues to be intubated and on mechanical ventilation. Current vent settings are tidal volume 375, FiO2 100% and PEEP of 20. ABG shows pH 7.37, pCO2 40, pO2 102. She continues with intermittent prone positioning. Patient continues to have almost no urine output, maintained on dialysis. Patient received dialysis yesterday without complication. Laboratory values revealed WBC 10.3, hemoglobin 10.4, sodium 132, potassium 3.1, BUN 33, creatinine 4.29, LDH 1913, C-reactive protein 1.3. Urine and sputum cultures are negative, blood cultures show no growth to date. Consult placed to dietary to start TPN[ ] 09/18: She remains in the intensive care unit intubated and on mechanical ventilation with tidal volume 375, FiO2 60 and PEEP of 20. Patient is being prone to daily at approximately 16 hours per day. Pulmonary medicine has added in Dr. Zhang to do PEG tube and trach today. Patient is not on vasopressors. Repeat blood work reveals WBC 12.6, hemoglobin 9.8, platelet count 212. Sodium 133, potassium 3.2, chloride 102, CO2 21, BUN 35 and creatinine 4.12. Blood sugar 126. Patient underwent hemodialysis yesterday with removal of 2 L and is scheduled again today with goal of 2-3 L and is scheduled again tomorrow. 09/19: She is scheduled for hemodialysis today and is off fentanyl temporarily. Patient is status post trach and PEG tube yesterday. And she remains on mechanical ventilation. Pulse ox 93-95%. She has been afebrile, heart rate 64, respiratory rate 36, blood pressure 115/50. Fentanyl is off to improve blood pressure for hemodialysis which is scheduled for today. Contacted vascular surgery about permanent hemodialysis catheter. Repeat blood work reveals WBC 14.3, hemoglobin 9.6, platelet count 200. D-dimer 6.48. LDH 1686. C-reactive protein 1.1. BUN 34 creatinine 3.81. Sodium 130, potassium 3.5, chloride 101, CO2 18. Blood sugars running between 101 198. Plan is to wean off Pneumovax today. Patient remains on insulin drip. Repeat chest x-ray reveals bilateral multifocal confluent opacities consistent with COVID-19. Some improved aeratio n periphery of the left lung and worsening opacities throughout the right lung. 09/20: She remains in the intensive care unit on mechanical ventilation. She has been afebrile, heart rate 65, respiratory rate 37, blood pressure 121/70, pulse ox 91-99%. Repeat blood work reveals WBC 14.5, hemoglobin 9.1, platelet count 216. D-dimer 6.13. Sodium 133, potassium 3.1, chloride 102, CO2 18, BUN 35 and creatinine 4.27. Blood sugars running between 128 and 143. LDH 1717. C- reactive protein 1.7. Patient remains on insulin drip which will be transitioned to NovoLog scale every 6 hours. Patient is scheduled for permanent hemodialysis catheter placement today with vascular surgery. Repeat chest x-ray reveals stable diffuse bilateral interstitial and airspace disease. Possible small right effusion. His work is following for transfer to [facility] care [facility]. Do not anticipate discharge until next week. 09/21: Patient is undergoing hemodialysis. She remains on mechanical ventilation with tidal volume 375, FiO2 down to 45 and PEEP was decreased to 15. Patient is continued on propofol, fentanyl drips. She is on tube feedings at goal. Patient was taken off insulin drip yesterday and on scale only but blood sugars are running in the 200s, Levemir scheduled at bedtime will be added. Other blood work reveals WBC 13.3, hemoglobin 8.7, platelet count 192. Sodium 137, potassium 3.6, chloride 107, CO2 18, BUN 34 and creatinine 4.21. Repeat chest x-ray is stable. 09/22: She remains in the intensive care on mechanical ventilation with tidal volume 375, FiO2 of 50 and PEEP of 10. Pulse ox is running 96%. She is afebrile, heart rate in the 50s, respiratory rate 36, blood pressure 100/64. Repeat blood work reveals WBC 16.5, hemoglobin 8.9, platelet count 213. Sodium 134, potassium 3.7, chloride 103, CO2 21, BUN 34 and creatinine 3.89. Blood sugars running in the 200s to 324. Levemir increased to 16 units at bedtime and continue NovoLog scale every 6 hours. Patient is on tube feedings at goal. She has a Haley catheter in with a scant amount of dark/brown urine. Fecal management system is in place. Repeat chest x-ray reveals diffuse bilateral airspace infiltrates persist unchanged. Patient is scheduled for hemodialysis tomorrow morning on Friday. 09/23: Patient remains on mechanical ventilation with tidal volume 3.75, FiO2 50 and PEEP of 10. tactical intelligence officer sinus rhythm. She has no urine output. Fecal management system is in place. She is undergoing dialysis at this time with plan for removal of 2-1/2 L. She has been afebrile, heart rate in the 50s, respiratory rate 36, blood pressure 108/76 and pulse ox 89%. WBC 13.6, hemoglobin 9.1, platelet count 194. Sodium 136, potassium 3.0 and was replaced, chloride 106, CO2 21, BUN 49 creatinine 5.31. Blood sugars are running between 182 and this morning 194. Patient was still in the 200s and 300s. Levemir last evening was increased to 16 units. Patient remains on propofol and fentanyl drips. Lovenox was increased to 60 mg twice daily. 09/24: PEEP was increased today to 20, tidal volume is at 375 and FiO2 of 50%. Patient has been afebrile. She has been started on levo fed. Repeat chest x- ray reveals bilateral multifocal confluent opacities consistent with Covid 19 or ARDS redemonstrated. Nephrology will plan dialysis for tomorrow for 3 L. Patient remains on propofol fentanyl and Nimbex. WBC 12.5, hemoglobin 9.8, platelet count 161. D-dimer 13.3. Sodium 132, potassium 3.4, chloride 102, CO2 20, BUN 48 and creatinine 4.67. Blood sugars extremely elevated to 96-409. LDH 2217. 09/25: Patient remains in the intensive care unit on mechanical ventilation with tidal volume 375, FiO2 50 and PEEP of 20. Patient is afebrile, heart rate 61, respiratory rate 36, blood pressure 102/56, pulse ox 97%. Repeat blood work reveals WBC 9.3, hemoglobin 8.5 and platelet count 171. Sodium 130, potassium 3.7, chloride 100, CO2 20, BUN 61 creatinine 5.65. Blood sugars have been elev ated up to 455. Levemir increased to 20 units twice daily, NovoLog 5 units every 6 hours and continue NovoLog scale. Patient is scheduled for hemodialysis today. Repeat chest x-ray reveals bilateral multifocal and confluent opacities. Decadron and Lovenox dosing change by pulmonary. Patient is off norepinephrine. 09/26: Patient remains in the intensive care unit on mechanical ventilation with tidal volume 375, FiO2 50 and PEEP of 15. She has been afebrile, heart rate 91, blood pressure 114/68, pulse ox 99%. tactical intelligence officer sinus rhythm. 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 Sodium 134, potassium 3.6, chloride 102, CO2 22, BUN 41 creatinine 4.21. Patient has improved blood sugars this morning running 150s and 160s. Diabetic medications were adjusted yesterday. Patient is awake and alert and interacting. Yesterday, patient had PICC line inserted by interventional radiology. Repeat chest x-ray reveals diffuse airspace infiltrates in both lung ann appear to progress slightly in the interval. 09/27: Patient remains in intensive care unit on mechanical ventilation with improvement of settings with tidal volume 375, FiO2 decreased to 40 and PEEP decreased to 10. Patient is on hemodialysis every other day and plan to remove 3 L today. Patient is more awake and alert. She is slow to respond but is able to follow simple commands. Blood sugars are running between 84 and 123. Repeat blood work reveals WBC 7.1, hemoglobin 8.1, platelets 152. Sodium 135, potassium 3.6, chloride 103, CO2 21, BUN 53 and creatinine 5.88. Repeat chest x-ray revealed cardiomegaly and pulmonary edema. Patient is on tube feedings:. Patient is not require vasopressors and is off sedation. Fecal management system remains in place for brown liquid stool. C. difficile was negative. 09/28: Patient remains on mechanical ventilation with tidal volume 375, FiO2 increased to 80 and PEEP increased to 18. Patient had a rough night was very anxious, no pain. Xanax 0.25 mg 3 times daily was added. There is concern for pulmonary embolism for which patient was started on heparin drip, she is unable to undergo CAT scan. Venous Doppler bilateral lower extremities was nondiagnostic due to extensive edema in obese patient but minimal imaging of the popliteal veins does show flow. Repeat echocardiogram has been ordered. Cefepime has also been ordered at 1 g IV piggyback every 24 hours as well as vancomycin, pharmacy dosing. Patient is back on fentanyl drip, propofol drip and norepinephrine. Blood sugars are elevated and insulin Levemir will be i ncreased to 25 mg twice daily. Ferrlecit infusion has been ordered by nephrology for 4 days. Patient is undergoing hemodialysis today.temperature max 100.2, heart rate 134, respiratory rate 34, blood pressure 120/65, pulse ox 94%. tactical intelligence officer is sinus tachycardia. Repeat blood work reveals WBC 16.9, hemoglobin 9.7, platelet count 216. D-dimer 8.81. Sodium 134, potassium 3.8, chloride 99, CO2 25, BUN 43 and creatinine 5.36. Blood sugars in the 200s. AST 40. 09/29 Patient had declined more last 48 hours require more sedation, patient is doing hemodialysis, respiratory failure is quite bit worse this time. Patient was inquired the pain is well back on fentanyl drip. Her vent set up with PEEP is limited but higher. No new finding on culture and her chest x-ray continues shows diffuse infiltrate persistent although there is a moderate interval improvement. 09/30 patient's was seen and evaluated. PEEP was reduced to 11 as patient is maintaining good saturation at the current vent settings. 10/01 patient was seen at bedside. She is currently on assist control rate of 28 white tidal volume 350 FiO2 50% and PEEP of 10 which has been reduced by pulmonary as patient name cleaning her oxygen saturation. Arm blood gas was obtained with a pH of 7.35 pCO2 37 pO2 of 63. She remains hemodynamically stable with no need for pressors. Labs were reviewed patient's BUN is 29 crea tinine 3.93 glucose 122 albumin 2.2 sodium 131 chloride 19 hemoglobin is downtrending with a Hb of 7.3 no leukocytosis 7.1. Patient's urine output is minimal at this time. Her rate has increased to 129 and is currently on positive fluid balance even with dialysis. Last dialysis was done yesterday. Continue enteral feeding currently at goal. Antibiotic has been discontinued and continues to remain on DEXA methicillin 4 mg IV daily. 10/02 patient continues to be on trach support with mechanical ventilation. Patient was evaluated by beef cattle farm manager and was switched to VC control as patient was noted to be double stacking on and off throughout the night. Respiratory rate continue to 28 tidal volume increased to 400 with a PEEP for Dr. Downey. Patient is maintaining oxygen saturation 91% on the current setting. According to the nurse bedside patient saturation drops significantly or she is moved or her sedation is dropped. Patient is currently on propofol drip, fentanyl drip. She did underwent dialysis today and was able to maintain her low pressure without the need of pressors. Labs reviewed today suggest a WBC of 6.7 hemoglobin of 7.0 and d-dimer 3.9 bicarb 17 BUN 38 creatinine 4.8. LDH is 964. Sodium 1:30 likely secondary to volume overload. Urine sodium and urine osmolality ordered. Patient's glucose this morning is 146. Continue to remain on enteral feeding. Urine output is reduced. Fall catheter will be placed today. Continue to remain on dialysis. 10/03: Patient remains on mechanical ventilation and is back on propofol and fentanyl drips. Patient is currently on VC control with tidal volume 400, FiO2 55 and PEEP of 12. Patient still is not making any urine and is dialysis dependent with next treatment planned for tomorrow with removal of 3-3-1/2 L. PEG tube feedings are at goal. Fecal management system remains in place. At the time of evaluation, patient is off levophed. Repeat chest x-ray reveals stable diffuse bilateral airspace disease correlate for ARDS, pulmonary edema or diffuse pneumonia. Temperature max last evening was 101. Temperature currently 99, heart rate 106, respiratory rate 32, blood pressure 101/50, pulse ox 86%. Repeat blood work reveals WBC 6, hemoglobin 7.4, platelet count 160. D-dimer 4.05. Sodium 133, potassium 3.5, chloride 100, CO2 23, BUN 31 creatinine 3.8. Blood sugars are running between 100 and 170. Ferritin 1514. Liver function test normal. LDH 1016, C-reactive protein 13.6. Prognosis remains guarded. 10/04: Patient remains intubated on mechanical ventilation with tidal volume 400, FiO2 65, PEEP of 14. Patient continues to run fevers and repeat blood culture and urine and urine culture ordered for today. Haley catheter has been removed this patient has no significant urine output at about 20 mL per shift. BladderScan is monitored for greater than 300 and the patient is straight cathed. Hemoglobin is 6.8 and she has been ordered 41 unit of packed RBCs today. She is currently on propofol and fentanyl drips. She is scheduled for hemodialysis today. WBC 4.5, hemoglobin 6.8, platelet count 151. D-dimer 3.28. Sodium 132, potassium 4.1, chloride 100, CO2 22, BUN 37 creatinine 4.74. Blood sugars running between 97 and 110. Ferritin 1801. LDH 859. C-reactive protein 14.4. Chest x-ray reveals correlate for pneumonia, edema, ARDS. Prognosis remains guarded. 10/05: Patient remains in intensive care unit currently on mechanical ventilation with tidal volume 400, FiO2 was increased to 100 and PEEP is at 14. She continues to run fevers which have worsened with temperature max 103.1. She has been tachycardic in the 130s, blood pressure is marginal but not on vasopressors. Pulse ox currently 92%. Repeat blood work reveals WBC 5.5, hemoglobin 7.6, platelet count 190. D-dimer 2.7, ferritin 1770, LDH 932, C- reactive protein 21.4. Blood sugars are running between 100 1669. Electrolytes are normal. BUN 27 and creatinine 3.79. Pancultures were done yesterday including a straight cath for urine culture, sputum culture and blood culture. Arterial line was removed as well as midline. She is currently on propofol, fen tanyl and started on Nimbex today. 10/06: Patient remains in the intensive care unit. Today patient in prone position and remains on mechanical ventilation with tidal volume 350, FiO2 65 and PEEP of 14. Her last documented fever was yesterday at 2 PM. Heart rate is in the 120s, respiratory rate 32, pulse ox 88-92%. CBC is unremarkable. Electrolytes are normal. BUN 30 creatinine 2.93. Blood sugars are running between 135 and 164. Cultures from October 04: Blood culture no growth, sputum culture finalized, urine culture finalized. Catheter tip culture is in process. Repeat chest x-ray shows bilateral interstitial infiltrates. Patient is on tube feedings of Nepro at goal of 30 ML's per hour. Patient underwent dialysis yesterday and is scheduled for repeat dialysis today. 10/07: Patient maintains in the intensive care unit intubated and on mechanical ventilation. She is receiving hemodialysis this morning has been every day. Plan is to remove 2-1/2 L today. Vent settings have changed today with tidal volume 350, FiO2 was increased to 100% and PEEP remains at 14. She has been continued on Nimbex, fentanyl, norepinephrine and propofol. Plan is to prone position patient following dialysis. Repeat chest x-ray reveals worsening interstitial infiltrates. BUN is 26 and creatinine 2.59. LDH 955, C-reactive protein 22.1. Prognosis remains poor. 10/08: Patient remains in intensive care unit intubated and on mechanical ventilation with tidal volume 350, FiO2 60, PEEP of 14. She is pronating today. She is scheduled for hemodialysis on a daily basis. She has been afebrile, heart rate 112, respiratory rate 36, blood pressure 161/88, pulse ox 93%. Repeat blood work reveals WBC 9.9, hemoglobin 9.1, platelet count 320. Sodium 133, potassium 5.3, chloride 100, CO2 20, BUN 29 creatinine 2.44. Blood sugar running between 102 and 139. LDH 1026, C-reactive protein 19.7. 10/09: Patient is undergoing dialysis this morning. She continues to be intubated and on mechanical ventilation with tidal volume 350, 270 and PEEP of 14. Patient is also on propofol, Nimbex, norepinephrine and fentanyl drips. Repeat chest x-ray reveals persistent bilateral multifocal and confluent opacities consistent with Covid 19. She is afebrile, heart rate 116, respiratory rate 36, blood pressure 120/65, pulse ox 91%. Repeat blood work reveals WBC 5.4, hemoglobin 9.2, platelet count 216. D-dimer 2.67, ferritin 2568, LDH 794, C- reactive protein 13.9. Blood sugars have been running 90-104. Creatinine 1.64. She is on daily dialysis treatment. 10/10: She remains in the intensive care unit. She is now out of isolation as a repeat Covid test came back negative. She remains on mechanical ventilation with tidal volume 350, FiO2 70 and PEEP of 14. Patient is also on Nimbex, propofol, norepinephrine, fentanyl drips. She is on PEG tube feedings at goal and tolerating well. Repeat blood work reveals WBC 7.8, hemoglobin 7.5, platelet count 267. Sodium 139, potassium 3.9, chloride 109, CO2 20, BUN 20 creatinine 1.29. Blood sugars are running between 76 and 102. Scheduled Aiyana Log decreased to 3 units. Repeat chest x-ray reveals moderate cardiomegaly and continued pulmonary edema. Slight interval improvement. Patient is continued on daily hemodialysis. REVIEW OF SYSTEMS Unable to obtain due to mechanical ventilation. PHYSICAL EXAMINATION Gen: This is is a 35-year-old black female, patient is intubated and on mechani ingris ventilation, appears to be comfortable. Patient is in prone position. HEENT: Head is atraumatic, normocephalic. Pupils equal, round. Sclerae is anicteric. Tracheostomy midline. NECK: Supple. No JVD. No lymphadenopathy. No thyromegaly. LUNGS: Clear to auscultation. No wheezes or rhonchi. No intercostal retractions. HEART: Regular rate and rhythm. No murmur. ABDOMEN: Soft. Bowel sounds are present. No masses. No tenderness. Haley catheter and fecal management system in place. EXTREMITIES: 1+ bilateral pedal edema. No calf tenderness. NEUROLOGICAL: Patient is sedated. ASSESSMENT AND PLAN 1. Acute hypoxic respiratory failure secondary to Covid 19 pneumonia and possible bacterial pneumonia. Patient was intubated on September 11. She is status post 1 dose of Remdesivir and 1 dose of Tocilizumab. Continue Ventolin inhaler 4 times daily, Symbicort twice daily, Decadron 4 mg IV daily, Lovenox 30 mg subcu daily, supplements. Status post PEG tube and trach. Isolation precautions at been removed. 2. Acute diabetic ketoacidosis secondary to Covid 19 pneumonia, uncontrolled with hyperglycemia. Levemir 25 units twice daily, scheduled NovoLog decreased at 3 units every 6 hours and NovoLog scale. 3. Metabolic encephalopathy secondary to Covid 19 and DKA. 4. Sepsis and septic shock secondary to Covid 19 pneumonia with multiorgan failure. Continue as in #1. 5. Acute metabolic acidosis secondary to acute DKA, Covid 19 and acute kidney injury. Sodium bicarb 650 mg 3 times daily. 6. Diabetes mellitus type 2 uncontrolled with A1c 13.6. Continue as above. 7. Hypophosphatemia status post replacement. 8. Hyperkalemia secondary to DKA, resolved. 9. Sinus tachycardia secondary to sepsis, volume deficiency.Continue Lopressor 25 mg twice daily. 10. Acute kidney injury secondary to ATN secondary to Covid 19 and DKA. Patient continued on hemodialysis. Permanent dialysis catheter placed. 11. Possible acute gram-negative pneumonia versus MRSA pneumonia. Completed course of antibiotics. 12. Hypertension. 13. Morbid obesity with BMI of 53. 14. DVT prophylaxis. Lovenox. 15. GI prophylaxis. Protonix 40 mg IV push daily. CODE STATUS: Full code Prognosis poor. DISCHARGE PLAN Nursing Home Acute Care Impression and plan of care have been directed as dictated by the signing physician. Kimberly Boswell nurse practitioner acting as scribe for signing physician. Objective - Vital Signs Vital signs: Vital Signs Temp 98.9 F 10/10/20 04:00 Pulse 112 H 10/10/20 06:00 Resp 36 H 10/10/20 06:00 BP 108/59 10/10/20 06:00 Pulse Ox 94 L 10/10/20 06:00 Intake & Output 10/09/20 10/09/20 10/10/20 06:59 18:59 06:59 Intake Total 9931.935 0515.874 1561.999 Output Total 3000 0 Balance 1535.333 -9050.606 2120.999 Weight 115.2 kg 115.2 kg 118 kg Intake: IV 166 276 230 0.9 Normal Saline @ KVO 130 240 200 0.9 Normal Saline 36 36 30 Pressure Bag Intake, IV Titration 1925.353 7621.874 1141.999 Amount Cisatracurium 200 mg In 284.951 298.658 343.841 Sodium Chloride 0.9% 180 ml @ 1 MCG/KG/MIN 7.308 mls/hr IV .Q24H [facility] Rx#: [id number] Norepinephrine 8 mg In 57.082 43.216 27.438 Sodium Chloride 0.9% 250 ml @ 0.05 MCG/KG/MIN 11. 61 mls/hr IV .[id number] [facility] Rx#:[id number] fentaNYL (PF) 2,500 mcg 250 500.000 402.24 In Sodium Chloride 0.9% 200 ml @ Per Protocol IV .Q0M [facility] Rx#:[id number] propofoL 1,000 mg In 567.3 300 368.48 Empty Bag 1 bag @ Per Protocol IV .Q0M [facility] Rx#: [id number] Tube Feeding 120 140 100 Other 90 30 90 Output: Urine 0 0 Hemodialysis 3000 Other: Voiding Method Incontinent Incontinent ABP, PAP, CO, CI - Last Documented Arterial Blood Pressure 116/59 - Labs CBC & Chem 7: 10/10/20 04:29 10/10/20 04:29 Labs: Abnormal Lab Results - Last 24 Hours (Table) 10/09/20 10/09/20 10/09/20 Range/Units 04:28 11:54 17:41 RBC (3.80-5.40) m/uL Hgb (11.4-16.0) gm/dL Hct (34.0-46.0) % RDW (11.5-15.5) % ABG pH (7.35-7.45) ABG pO2 (83-108) mmHg Chloride (98-107) mmol/L Carbon Dioxide (22-30) mmol/L BUN (7-17) mg/dL Creatinine (0.52-1.04) mg/dL POC Glucose (mg/dL) 102 H 104 H (75-99) mg/dL Ferritin 2568.4 H (10.0-291.0) ng/mL 10/09/20 10/10/20 10/10/20 Range/Units 20:14 04:29 04:29 RBC 2.63 L (3.80-5.40) m/uL Hgb 7.5 L D (11.4-16.0) gm/dL Hct 23.1 L (34.0-46.0) % RDW 16.2 H (11.5-15.5) % ABG pH (7.35-7.45) ABG pO2 (83-108) mmHg Chloride 109 H (98-107) mmol/L Carbon Dioxide 20 L (22-30) mmol/L BUN 20 H (7-17) mg/dL Creatinine 1.29 H (0.52-1.04) mg/dL POC Glucose (mg/dL) 102 H (75-99) mg/dL Ferritin (10.0-291.0) ng/mL 10/10/20 10/10/20 Range/Units 05:15 05:38 RBC (3.80-5.40) m/uL Hgb (11.4-16.0) gm/dL Hct (34.0-46.0) % RDW (11.5-15.5) % ABG pH 7.29 L (7.35-7.45) ABG pO2 79 L (83-108) mmHg Chloride (98-107) mmol/L Carbon Dioxide (22-30) mmol/L BUN (7-17) mg/dL Creatinine (0.52-1.04) mg/dL POC Glucose (mg/dL) 102 H (75-99) mg/dL Ferritin (10.0-291.0) ng/mL Microbiology - Last 24 Hours (Table) 10/04/20 12:30 Blood Culture - Preliminary Blood No Growth after 120 hours
[2020-10-10 11:56] LABS: Glucose,Whole Blood 125 mg/dL (75-99)
--- NOTE | 2020-10-10 15:43 | P.PN ---
Subjective Progress Note Date: 10/10/20 CHIEF COMPLAINT: COVID-19 pneumonia HISTORY OF PRESENT ILLNESS: Patient is in the ICU for COVID-19 pneumonia and respiratory failure. She is status post tracheostomy and PEG tube placement with Dr. Hollis. Patient is tolerating tube feedings. Her to feedings are at goal at 30 mL per hour. Patient remains on mechanical ventilation. Patient's repeat Covid tests came back negative. Patient getting hemodialysis again today. Afebrile WBC 7.8 hgb 7.5 Patient seen and examined with Dr. hollis PHYSICAL EXAM: VITAL SIGNS: Reviewed. GENERAL: Well-developed in no acute distress. HEENT: No sclera icterus. Extraocular movements grossly intact. Moist buccal mucosa. Head is atraumatic, normocephalic. Tracheostomy site clean dry and intact. No evidence of bleeding ABDOMEN: Soft. Nondistended. Nontender. PEG tube site clean dry and intact NEUROLOGIC: Sedated ASSESSMENT: 1. Acute hypoxic respiratory failure with prolonged mechanical ventilation due to COVID-19 pneumonia status post tracheostomy placement 2. Severe protein calorie malnutrition status post PEG tube placement PLAN: -Continue tube feedings -Continue supportive care -Continue ICU management Physician Timber Poisoner note has been reviewed by physician. Signing provider agrees with the documented findings, assessment, and plan of care. Objective - Vital Signs Vital signs: Vital Signs Temp 98.4 F 10/10/20 12:00 Pulse 103 H 10/10/20 15:00 Resp 36 H 10/10/20 15:00 BP 95/60 10/10/20 15:00 Pulse Ox 97 10/10/20 15:00 Intake & Output 10/09/20 10/10/20 10/10/20 18:59 06:59 18:59 Intake Total 2694.612 3309.999 971.334 Output Total 3000 0 4000 Balance -6733.822 0149.999 -3028.666 Weight 115.2 kg 118 kg Intake: IV 276 253 207 0.9 Normal Saline @ KVO 240 220 180 0.9 Normal Saline 36 33 27 Pressure Bag Intake, IV Titration 4831.380 9597.999 634.334 Amount Cisatracurium 200 mg In 298.658 343.841 192.383 Sodium Chloride 0.9% 180 ml @ 1 MCG/KG/MIN 7.308 mls/hr IV .Q24H [facility] Rx#: [id number] Norepinephrine 8 mg In 43.216 27.438 91.951 Sodium Chloride 0.9% 250 ml @ 0.05 MCG/KG/MIN 11. 61 mls/hr IV .[id number] [facility] Rx#:[id number] fentaNYL (PF) 2,500 mcg 500.000 402.24 250 In Sodium Chloride 0.9% 200 ml @ Per Protocol IV .Q0M [facility] Rx#:[id number] propofoL 1,000 mg In 300 468.48 100 Empty Bag 1 bag @ Per Protocol IV .Q0M [facility] Rx#: [id number] Tube Feeding 140 110 100 Other 30 90 30 Output: Urine 0 0 Hemodialysis 3000 4000 Other: Voiding Method Incontinent Incontinent Incontinent ABP, PAP, CO, CI - Last Documented Arterial Blood Pressure 131/69 - Labs CBC & Chem 7: 10/10/20 04:29 10/10/20 04:29 Labs: Abnormal Lab Results - Last 24 Hours (Table) 10/09/20 10/09/20 10/10/20 Range/Units 17:41 20:14 04:29 RBC 2.63 L (3.80-5.40) m/uL Hgb 7.5 L D (11.4-16.0) gm/dL Hct 23.1 L (34.0-46.0) % RDW 16.2 H (11.5-15.5) % ABG pH (7.35-7.45) ABG pO2 (83-108) mmHg Chloride (98-107) mmol/L Carbon Dioxide (22-30) mmol/L BUN (7-17) mg/dL Creatinine (0.52-1.04) mg/dL POC Glucose (mg/dL) 104 H 102 H (75-99) mg/dL 10/10/20 10/10/20 10/10/20 Range/Units 04:29 05:15 05:38 RBC (3.80-5.40) m/uL Hgb (11.4-16.0) gm/dL Hct (34.0-46.0) % RDW (11.5-15.5) % ABG pH 7.29 L (7.35-7.45) ABG pO2 79 L (83-108) mmHg Chloride 109 H (98-107) mmol/L Carbon Dioxide 20 L (22-30) mmol/L BUN 20 H (7-17) mg/dL Creatinine 1.29 H (0.52-1.04) mg/dL POC Glucose (mg/dL) 102 H (75-99) mg/dL 10/10/20 Range/Units 11:55 RBC (3.80-5.40) m/uL Hgb (11.4-16.0) gm/dL Hct (34.0-46.0) % RDW (11.5-15.5) % ABG pH (7.35-7.45) ABG pO2 (83-108) mmHg Chloride (98-107) mmol/L Carbon Dioxide (22-30) mmol/L BUN (7-17) mg/dL Creatinine (0.52-1.04) mg/dL POC Glucose (mg/dL) 125 H (75-99) mg/dL Microbiology - Last 24 Hours (Table) 10/04/20 12:30 Blood Culture - Final Blood No Growth after 144 hours
[2020-10-10 18:10] LABS: Glucose,Whole Blood 100 mg/dL (75-99)
[2020-10-10 23:34] LABS: Glucose,Whole Blood 133 mg/dL (75-99)
[2020-10-11] MEDS: INSULIN ASPART (NovoLOG) 100 UNIT/ML VIAL SQ SCH ×8 (00:10→17:37)
[2020-10-11] MEDS: ARTIFICIAL TEARS-HYPROMELLOSE DROPS 15 ML BTL BOTH EYES SCH ×6 (00:41→21:08)
[2020-10-11 04:02] LABS: Anisocytosis Slight; HCT 26.4 % (34.0-46.0); HGB 8.1 gm/dL (11.4-16.0); Hypochromasia Marked; MCH 27.5 pg (25.0-35.0); MCHC 30.6 g/dL (31.0-37.0); MCV 89.9 fL (80.0-100.0); Mean Platelet Volume 8.9; Platelet Count 276 k/uL (150-450); Poikilocytosis Slight; RBC 2.94 m/uL (3.80-5.40); RDW 16.5 % (11.5-15.5); WBC 9.3 k/uL (3.8-10.6)
[2020-10-11 04:12] LABS: Albumin 2.4 g/dL (3.5-5.0); Calcium 9.1 mg/dL (8.4-10.2); Potassium 4.3 mmol/L (3.5-5.1); Total Bilirubin 0.3 mg/dL (0.2-1.3); Total Protein 5.1 g/dL (6.3-8.2)
[2020-10-11 05:28] LABS: ABG Base Excess -5.4 mmol/L; ABG HCO3 22 mmol/L (21-25); ABG Oxygen Saturation 92.7 % (94-97); ABG PCO2 47 mmHg (35-45); ABG PH 7.27 (7.35-7.45); ABG PO2 74 mmHg (83-108); ABG TCO2 23 mmol/L (19-24); Allen Test Performed? Yes
[2020-10-11 05:53] LABS: Band Neutrophils % 20 %; Eosinophils # (M) 0.65 k/uL (0-0.7); Lymphocytes # (M) 1.21 k/uL (1.0-4.8); Metamyelocytes # (M) 0.28 k/uL (0); Metamyelocytes % 3 %; Monocytes # (M) 0.56 k/uL (0-1.0); Myelocytes # (M) 0.09 k/uL (0); Myelocytes % 1 %; Neutrophils % (M) 53 %; Nucleated Red Blood Cells 0 /100 WBC (0-0); Polychromasia Present; Total Cells Counted 200
[2020-10-11 05:57] LABS: Large Platelets Present
[2020-10-11 06:04] LABS: Glucose,Whole Blood 142 mg/dL (75-99)
[2020-10-11] MEDS: ALBUTEROL HFA INHALER INHALATION SCH ×4 (07:26→21:22)
[2020-10-11] MEDS: SYMBICORT 160-4.5 MCG INHALER INHALATION SCH ×2 (07:26→21:22)
[2020-10-11] MEDS: fentaNYL (PF) 2,500 MCG in SODIUM CHLORIDE 0.9% 200 ML IV SCH ×3 (07:54→21:55)
[2020-10-11] MEDS: INSULIN DETEMIR (LEVEMIR) 100 UNIT/ML SYR SQ SCH ×2 (08:08→21:09)
[2020-10-11] MEDS: SEVELAMER 800 MG TAB PO SCH ×3 (08:13→16:59)
[2020-10-11] MEDS: PANTOPRAZOLE 40 MG/10 ML VIAL IVP SCH (09:02)
[2020-10-11] MEDS: SODIUM BICARBONATE TAB 650 MG TAB PO SCH ×3 (09:02→21:08)
[2020-10-11] MEDS: ENOXAPARIN 40 MG/0.4 ML SYRINGE SQ SCH (09:02)
[2020-10-11] MEDS: CHOLECALCIFEROL 25 MCG (1000 IU) TABLET PO SCH (09:02)
[2020-10-11] MEDS: DEXAMETHASONE SOD PHOSPHATE 4 MG/ML 1 ML VIAL IV SCH (09:03)
[2020-10-11] MEDS: ASCORBIC ACID 500 MG TAB PO SCH ×2 (09:03→21:08)
[2020-10-11] MEDS: ZINC SULFATE 220 MG CAP PO SCH (09:03)
--- NOTE | 2020-10-11 09:28 | P.PN ---
Subjective Progress Note Date: 10/11/20 Principal diagnosis: Acute respiratory failure secondary to Covid 19 pneumonia. Patient was reevaluated today on 10/05/2020, remains in the ICU, intubated, mechanically ventilated, patient is doing worse today compared to the last few days, her chest x-ray is worsening, her O2 requirement is rising and she is back on the percent FiO2, I have also increased her PEEP to 16, assist control rate was increased to 52, FiO2 is on the percent. ABG earlier today on 70% FiO2 showed a pO2 of 56 pCO2 of 50 pH of 7.32. She was on assist control rate of 28 tidal volume of 400 FiO2 70% and PEEP of 14. Patient had to be placed on a higher dose of propofol which was increased to 70 fentanyl is at 2 mcg/kg/m, patient will be placed on Nimbex as I'm having difficulty oxygenating the pat ient in spite of high FiO2. She is scheduled to undergo hemodialysis again today, she had 4 L off yesterday. Remains on tube feeds using vital AF at 30 MLS per hour. Patient is tachycardic rate is 129, blood pressure is marginal 86/45, hence may recommend adding norepinephrine. The overall picture clearly showing deterioration in this patient's clinical status, and I have a feeling that this patient will continue to do poorly and she is now maximized on treatment. Again her chest x-ray is showing significant worsening of her infiltrates. Patient was reevaluated today on 10/06/2020, remains in the ICU, intubated and mechanically ventilated, and she is presently in prone position since last night for the next few hours until dialysis which is supposed to start sometime in the next couple of hours. Patient remains on assist control mode of mechanical ventilation, it is volume control with volume of 350 rate of 3 to FiO2 65%. 14. Her ABG showed a pO2 of 68 pCO2 of 52 pH of 7.28. Patient remains on propofol at 75 fentanyl at 3 mcg/kg/h she is also on norepinephrine at 0.02 and Nimbex at 3 mcg/kg/m. Patient is scheduled to have hemodialysis today. Chest x-ray continues to show evidence of bilateral interstitial infiltrates. Patient is on enteral feeding in the form of Nepro at 30/30. Patient has been proned now for the last 17 hours. Electrolytes are normal however her BUN is 30 creatinine 2.93. Blood sugar is 147 WBC count is 5.1 hemoglobin is 11.4. Patient remains on the COVID-19 cocktail. Remains on albuterol, Symbicort, Decadron 4 mg IV push daily, Lovenox 30 mg subcu daily. Insulin protocol. Her tonic 40 mg IV push daily. Off antibiotics. Patient was reevaluated today on 10/07/2020, remains in the ICU, intubated and mechanically ventilated, presently receiving hemodialysis. She is on assist control rate of 32, tidal volume of 350, FiO2 is up to on the percent today, and PEEP of 14. Higher PEEP did not seem to help much, hence I kept her on a PEEP of 14. ABG today showed a pO2 of 63 pCO2 53 pH of 7.25. A shunt is on Nimbex at 4 mcg/kg/m, fentanyl 3 mcg/kg/h, norepinephrine at 0.07 mcg/kg/m, propofol at 75 mcg/kg/m. Again the patient is receiving hemodialysis, and I have instructed the nurses today to go back into prone position after she is done with dialysis. Chest x-ray continues to show worsening interstitial infiltrates and ARDS pic ture. Labs were all reviewed. Her medications were all reviewed today. Basic metabolic profile is normal BUN is 26 creatinine 2.59. LDH is 955 and C- reactive protein is 22.1. Not much of a change in the last few days. Patient was reevaluated today on 10/08/2020, remains in the ICU, intubated and mechanically ventilated, patient is presently in prone position her ABG this morning showed significant improvement in her oxygenation, however continues to have a combined metabolic and respiratory acidosis. She is now on assist control of 350 rate of 36 FiO2 down to 60% PEEP at 14. ABG on 100% showed a pO2 of 209 pCO2 of 59 pH of 7.15. Her assist control rate was increased to 36. Kept her on the same tidal volume of 350. 2 A of bicarb were given. Patient is also on bicarb drip. Patient remains on propofol at 75 mcg/kg/m, she is on Nimbex at 4 mcg/kg/m, and norepinephrine at 0.01 mcg/kg/m. Patient is also on fentanyl at 3 mcg/kg per hour. During my evaluation, the patient was in prone position, however should be placed back in supine position once dialysis is ready and the patient will be dialyzed again today. Chest x-ray from yesterday continues to show evidence of interstitial edema and ARDS. No chest x-ray has been done yet today because the patient was in prone position. Patient remains on Decadron, remains on Lovenox, she is off antibiotics for now. CBC showed WBC 9.9 hemoglobin is 9.1. Hematocrit is 28.7. Electrodes are normal. BUN is 29 and creatinine 2.44. Bicarb is 20. LDH is up a bit 1026, C-reactive protein is about the same at 19.7. Progress note dated 10/09/2020. This is a 35-year-old black female with history of acute COVID 19 infection, with acute hypoxemic respiratory failure. She was admitted way back on September 10. Because of failure to wean from mechanical ventilation, she underwent tracheostomy and PEG tube placement on September 18. Currently remains on the ventilator. She is on the VC + (PRVC) modality, with a targeted tidal volume 350 and inspiratory time of 0.9 seconds. Her rate is set at 36. FiO2 70%, and PEEP of 14. On those settings, her arterial blood gases show a PaO2 of 72, pCO2 47, and pH 7.23. Currently, the patient's getting daily hemodialysis. Her drips including propofol at 75 mcg/kg/m, Nimbex at 3.5 mcg/kg/m, with [id number] monitoring, fentanyl at 3 g kilogram per hour, norepinephrine at 7 mcg/m, saline at 20 mL an hour, and vital 1.2 at 10 mL an hour, which is goal. White count 5.4, hemoglobin 9.2, hematocrit 28.8, and platelet count 217,000. Sodium 137, potassium 4.2, chlorides 108, CO2 19, anion gap 10, BUN 22, and creatinine 1.64. The patient's chest x-ray is consistent with bilateral infilt rates, and is essentially unchanged, and consistent with a diagnosis of coronavirus pneumonia. Progress note dated 10/10/2020. 35-year-old black female, with a history of COVID 19 infection and acute hypoxemic respiratory failure. She was admitted way back on September 10. Because of failure to wean from mechanical ventilation, she underwent tracheostomy and PEG tube placement on September 18. She remains on the mechanical ventilator. She is on the pressure regulated volume control modality. Her targeted tidal volume is 350 mL, and her inspiratory time 0.9 seconds. The patient's on 70% FiO2, PEEP o f 14, with a rate of 36. The patient is receiving Nimbex at 4.5 mcg/kg/m, propofol at 65 mcg/kg/m, norepinephrine at 3.5 mcg/m, fentanyl at 2.5 mcg/kg/h, and vital AF 1.2 at 10 mL an hour which is goal. The patient's blood gases from this morning show a PaO2 of 79, 5, and a pH is 7.29. Today's chest x-ray is currently still pending. Overnight, there've been no major changes in her condition. White count 7.8, hemoglobin 7.5, hematocrit 23.1, and platelet count 267,000. Sodium 139, potassium 3.9, chlorides 109, CO2 20, anion gap 10, BUN 20, with creatinine 1.29. Progress note dated 10/11/2020. 35-year-old black female with a history of COVID 19 infection and acute hypoxemic respiratory failure. She was admitted back on September 10. Because of failure to wean from mechanical ventilation, she underwent tracheostomy and PEG tube placement on September 18. She remains on the mechanical ventilator to this day. Currently, she is on pressure regulated [place] control, with a targeted tidal volume of 350, inspiratory time of 0.9 seconds, FiO2 70%, PEEP of 14, and a rate of 36. Her blood gases show a PaO2 of 74, pCO2 46, pH 7.28. In an attempt to reduce the FiO2, I was going to go up on the PEEP, but I was reminded that the patient has a issue with high airway pressures, potentially causing airway and alveolar trauma. For that reason, I will switch her to volume assist control modality, with a tidal volume at 325, rate 32, FiO2 70%, and PEEP of 14. This will cause permissive hypercapnic ventilation. I'm okay with this, and I will except a pH of 7.15 or higher. He blood gas will be done in one hour. The patient has daily hemodialysis. We will attempt to prone the patient for 16 hours today. She apparently does well with that modality. Currently, she is on saline at KVO, propofol at 65 mcg/kg/m, fentanyl at 2.5 mcg/kg/h, Nimbex at 3.5 mcg/kg/m, and norepinephrine has been weaned off. She is getting vital AF, at 10 mL an hour, which is goal. Over the last 3 days, since I've been seeing her, there is not been much in the way of progress. White count 9.3, hemoglobin 8.1, hematocrit 26.4, platelet count 276,000. Sodium 136, potassium 4.3, chlorides 103, CO2 20, anion gap 13, BUN and creatinine were 20 and 1.14. Chest x-ray today shows improvement of volume status. Objective - Vital Signs Vital signs: Vital Signs Temp 98.8 F 10/11/20 04:00 Pulse 116 H 10/11/20 07:00 Resp 36 H 10/11/20 07:00 BP 105/73 10/11/20 07:00 Pulse Ox 95 10/11/20 07:00 Intake & Output 10/10/20 10/11/20 10/11/20 18:59 06:59 18:59 Intake Total 0102.955 9868.141 448.16 Output Total 4000 Balance -2550.256 1375.141 448.16 Weight 114.4 kg Intake: IV 276 299 0.9 Normal Saline @ KVO 240 260 0.9 Normal Saline 36 39 Pressure Bag Intake, IV Titration 953.744 856.141 448.16 Amount Cisatracurium 200 mg In 379.285 200 200 Sodium Chloride 0.9% 180 ml @ 1 MCG/KG/MIN 7.308 mls/hr IV .Q24H [facility] Rx#: [id number] Norepinephrine 8 mg In 124.459 33.901 Sodium Chloride 0.9% 250 ml @ 0.05 MCG/KG/MIN 11. 61 mls/hr IV .[id number] [facility] Rx#:[id number] fentaNYL (PF) 2,500 mcg 250 222.24 248.16 In Sodium Chloride 0.9% 200 ml @ Per Protocol IV .Q0M [facility] Rx#:[id number] propofoL 1,000 mg In 200 400 Empty Bag 1 bag @ Per Protocol IV .Q0M [facility] Rx#: [id number] Tube Feeding 130 130 Other 90 90 Output: Hemodialysis 4000 Other: Voiding Method Incontinent Incontinent ABP, PAP, CO, CI - Last Documented Arterial Blood Pressure 120/63 - Exam No acute distress, sedated and paralyzed, with a midline tracheostomy tube. HEENT examination is grossly unremarkable. Neck supple. Full range of motion. No adenopathy thyromegaly or neck vein distention. Midline tracheostomy tube noted. Cardiovascular examination reveals regular rhythm rate. S1-S2 normal. No S3 or S4. No discernible murmur noted. Heart sounds are distant. Heart rate 116 beats per minute. Lungs reveal diffuse coarse rhonchi and bilateral crackles. No wheezes. Breath sounds equal bilaterally but diminished throughout. Abdomen soft bowel sounds are heard. No masses or tenderness. PEG tube noted. Extremities are intact. No cyanosis clubbing or edema. Skin is without rash or lesion. Neurologic examination cannot be adequately assessed as the patient's currently sedated and paralyzed. - Labs CBC & Chem 7: 10/11/20 03:30 10/11/20 03:30 Labs: Abnormal Lab Results - Last 24 Hours (Table) 10/10/20 10/10/20 10/10/20 Range/Units 11:55 18:08 23:32 RBC (3.80-5.40) m/uL Hgb (11.4-16.0) gm/dL Hct (34.0-46.0) % MCHC (31.0-37.0) g/dL RDW (11.5-15.5) % Metamyelocytes # (Man) (0) k/uL Myelocytes # (Manual) (0) k/uL ABG pH (7.35-7.45) ABG pCO2 (35-45) mmHg ABG pO2 (83-108) mmHg ABG O2 Saturation (94-97) % Sodium (137-145) mmol/L Carbon Dioxide (22-30) mmol/L BUN (7-17) mg/dL Creatinine (0.52-1.04) mg/dL Glucose (74-99) mg/dL POC Glucose (mg/dL) 125 H 100 H 133 H (75-99) mg/dL Total Protein (6.3-8.2) g/dL Albumin (3.5-5.0) g/dL 10/11/20 10/11/20 10/11/20 Range/Units 03:30 03:30 05:19 RBC 2.94 L (3.80-5.40) m/uL Hgb 8.1 L (11.4-16.0) gm/dL Hct 26.4 L (34.0-46.0) % MCHC 30.6 L (31.0-37.0) g/dL RDW 16.5 H (11.5-15.5) % Metamyelocytes # (Man) 0.28 H (0) k/uL Myelocytes # (Manual) 0.09 H (0) k/uL ABG pH 7.27 L (7.35-7.45) ABG pCO2 47 H (35-45) mmHg ABG pO2 74 L (83-108) mmHg ABG O2 Saturation 92.7 L (94-97) % Sodium 136 L (137-145) mmol/L Carbon Dioxide 20 L (22-30) mmol/L BUN 20 H (7-17) mg/dL Creatinine 1.14 H (0.52-1.04) mg/dL Glucose 134 H (74-99) mg/dL POC Glucose (mg/dL) (75-99) mg/dL Total Protein 5.1 L (6.3-8.2) g/dL Albumin 2.4 L (3.5-5.0) g/dL 10/11/20 Range/Units 06:03 RBC (3.80-5.40) m/uL Hgb (11.4-16.0) gm/dL Hct (34.0-46.0) % MCHC (31.0-37.0) g/dL RDW (11.5-15.5) % Metamyelocytes # (Man) (0) k/uL Myelocytes # (Manual) (0) k/uL ABG pH (7.35-7.45) ABG pCO2 (35-45) mmHg ABG pO2 (83-108) mmHg ABG O2 Saturation (94-97) % Sodium (137-145) mmol/L Carbon Dioxide (22-30) mmol/L BUN (7-17) mg/dL Creatinine (0.52-1.04) mg/dL Glucose (74-99) mg/dL POC Glucose (mg/dL) 142 H (75-99) mg/dL Total Protein (6.3-8.2) g/dL Albumin (3.5-5.0) g/dL Microbiology - Last 24 Hours (Table) 10/04/20 12:30 Blood Culture - Final Blood No Growth after 144 hours Assessment and Plan Assessment: Acute hypoxemic respiratory failure, secondary to COVID 19 pneumonia, with ARDS, with admission to hospital on September 10, transferred to ICU on the , intubation on September 11, and tracheostomy and PEG tube placement on September 18. Acute respiratory distress syndrome (ARDS). Acute kidney injury, currently on hemodialysis. Acute diabetic ketoacidosis, resolved. Sepsis, secondary to COVID 19 pneumonia. Poorly controlled type 2 diabetes. Elevated inflammatory markers secondary to coronavirus infection. History of essential hypertension. Generalized anxiety disorder. Morbid obesity. Plan: Plan dated 10/09/2020. The patient remains on the pressure regulated volume control mode of ventilation. The patient is being nourished at goal. The patient remains on propofol, Nimbex, and fentanyl. In addition, the patient remains on norepinephrine. Labs, x-rays, and medications are all reviewed. Prognosis is very poor. We will continue to follow. Additional recommendations and suggestions are forthcoming. The patient remains on daily hemodialysis. Plan dated 10/10/2020. The patient remains about the same. She remains on the ventilator. The patient is status post tracheostomy and PEG tube placement. She remains sedated with propofol and fentanyl. She is also chemically paralyzed with Nimbex. She remains on norepinephrine at 8.5 mcg/m for low blood pressure. Cultures are all negative. She remains on periodic hemodialysis. Additional recommendations and suggestions are forthcoming. Diagnosis is guarded. We will continue to follow make recommendations where appropriate. Plan dated 10/11/2020. The patient remains on mechanical ventilator. We will attempt to prone the patient today for 16 hours, to improve oxygenation. In addition, the patient is switched from pressure regulated volume control modality to volume assist control. Settings include tidal volume at 325, rate 32, FiO2 70%, PEEP of 14. A repeat blood gas to be done in an hour. Additional recommendations and suggestions are forthcoming. The patient is currently undergoing daily hemodialysis. Prognosis remains very poor. We will continue to follow make recommendations where appropriate. Time with Patient: Greater than 30
--- NOTE | 2020-10-11 09:59 | XR ---
EXAMINATION TYPE: XR chest 1V portable DATE OF EXAM: 10/11/2020 COMPARISON: 10/10/2020 INDICATION: Pneumonia TECHNIQUE: Single frontal view of the chest is obtained. FINDINGS: The heart size is enlarged. The pulmonary vasculature is indistinct. Diffuse opacities through the bilateral lung ann. This may have slight improvement or may be techn ical in nature. Double-lumen catheters on the right with the tips in the superior vena cava region. Right-sided PICC line has its tip in the superior vena cava region. Tracheostomy tube is in the midline. IMPRESSION: 1. Cardiomegaly with diffuse increased lung markings can be compatible with pulmonary edema. 2. Lines and catheters discussed above
--- NOTE | 2020-10-11 10:16 | P.PN ---
Subjective Patient is seen in follow-up for acute kidney injury. Completed dialysis this morning with 4 L at filtration. Off vasopressors. Oliguric. Status post tracheostomy and PEG tube placement this admission. Receiving tube feeding. Currently on 70% FiO2. No changes overnight. Vital signs: Stable. General: The patient appeared well nourished and normally developed. HEENT: Tracheostomy noted. LUNGS: Breath sounds decreased. HEART: Regular rate and rhythm. Abdomen: Soft, no distention. EXTREMITITES: 1+ edema. Objective - Vital Signs Vital signs: Vital Signs Temp 97.8 F 10/11/20 09:41 Pulse 116 H 10/11/20 10:00 Resp 32 H 10/11/20 10:00 BP 98/73 10/11/20 10:00 Pulse Ox 96 10/11/20 10:00 Intake & Output 10/10/20 10/11/20 10/11/20 18:59 06:59 18:59 Intake Total 9294.238 5766.141 877.16 Output Total 4000 4300 Balance -2550.256 1375.141 -3422.84 Weight 114.4 kg Intake: IV 276 299 69 0.9 Normal Saline @ KVO 240 260 60 0.9 Normal Saline 36 39 9 Pressure Bag Intake, IV Titration 953.744 856.141 448.16 Amount Cisatracurium 200 mg In 379.285 200 200 Sodium Chloride 0.9% 180 ml @ 1 MCG/KG/MIN 7.308 mls/hr IV .Q24H [facility] Rx#: [id number] Norepinephrine 8 mg In 124.459 33.901 Sodium Chloride 0.9% 250 ml @ 0.05 MCG/KG/MIN 11. 61 mls/hr IV .[id number] [facility] Rx#:[id number] fentaNYL (PF) 2,500 mcg 250 222.24 248.16 In Sodium Chloride 0.9% 200 ml @ Per Protocol IV .Q0M [facility] Rx#:[id number] propofoL 1,000 mg In 200 400 Empty Bag 1 bag @ Per Protocol IV .Q0M [facility] Rx#: [id number] Tube Feeding 130 130 30 Hemodialysis 300 Other 90 90 30 Output: Hemodialysis 4000 4300 Other: Voiding Method Incontinent Incontinent ABP, PAP, CO, CI - Last Documented Arterial Blood Pressure 113/60 - Labs CBC & Chem 7: 10/11/20 03:30 10/11/20 03:30 Labs: Abnormal Lab Results - Last 24 Hours (Table) 10/10/20 10/10/20 10/10/20 Range/Units 11:55 18:08 23:32 RBC (3.80-5.40) m/uL Hgb (11.4-16.0) gm/dL Hct (34.0-46.0) % MCHC (31.0-37.0) g/dL RDW (11.5-15.5) % Metamyelocytes # (Man) (0) k/uL Myelocytes # (Manual) (0) k/uL ABG pH (7.35-7.45) ABG pCO2 (35-45) mmHg ABG pO2 (83-108) mmHg ABG O2 Saturation (94-97) % Sodium (137-145) mmol/L Carbon Dioxide (22-30) mmol/L BUN (7-17) mg/dL Creatinine (0.52-1.04) mg/dL Glucose (74-99) mg/dL POC Glucose (mg/dL) 125 H 100 H 133 H (75-99) mg/dL Total Protein (6.3-8.2) g/dL Albumin (3.5-5.0) g/dL 10/11/20 10/11/20 10/11/20 Range/Units 03:30 03:30 05:19 RBC 2.94 L (3.80-5.40) m/uL Hgb 8.1 L (11.4-16.0) gm/dL Hct 26.4 L (34.0-46.0) % MCHC 30.6 L (31.0-37.0) g/dL RDW 16.5 H (11.5-15.5) % Metamyelocytes # (Man) 0.28 H (0) k/uL Myelocytes # (Manual) 0.09 H (0) k/uL ABG pH 7.27 L (7.35-7.45) ABG pCO2 47 H (35-45) mmHg ABG pO2 74 L (83-108) mmHg ABG O2 Saturation 92.7 L (94-97) % Sodium 136 L (137-145) mmol/L Carbon Dioxide 20 L (22-30) mmol/L BUN 20 H (7-17) mg/dL Creatinine 1.14 H (0.52-1.04) mg/dL Glucose 134 H (74-99) mg/dL POC Glucose (mg/dL) (75-99) mg/dL Total Protein 5.1 L (6.3-8.2) g/dL Albumin 2.4 L (3.5-5.0) g/dL 10/11/20 Range/Units 06:03 RBC (3.80-5.40) m/uL Hgb (11.4-16.0) gm/dL Hct (34.0-46.0) % MCHC (31.0-37.0) g/dL RDW (11.5-15.5) % Metamyelocytes # (Man) (0) k/uL Myelocytes # (Manual) (0) k/uL ABG pH (7.35-7.45) ABG pCO2 (35-45) mmHg ABG pO2 (83-108) mmHg ABG O2 Saturation (94-97) % Sodium (137-145) mmol/L Carbon Dioxide (22-30) mmol/L BUN (7-17) mg/dL Creatinine (0.52-1.04) mg/dL Glucose (74-99) mg/dL POC Glucose (mg/dL) 142 H (75-99) mg/dL Total Protein (6.3-8.2) g/dL Albumin (3.5-5.0) g/dL Microbiology - Last 24 Hours (Table) 10/04/20 12:30 Blood Culture - Final Blood No Growth after 144 hours Assessment and Plan Plan: Assessment: 1. Acute kidney injury secondary to ATN secondary to COVID-19 and DKA. Baseline creatinine is near 1. Started on hemodialysis on September 14. Has p-cath. Oliguric. No hydronephrosis noted on kidney ultrasound. 2. DKA s/p insulin drip and IV fluids. 3. Acute hypoxic respiratory failure secondary to COVID-19 pneumonia. Status post tracheostomy this admission. 4. Metabolic acidosis secondary to acute kidney injury and DKA s/p bicarb drip. Maintained on oral bicarbonate. 5. Hyponatremia, hypervolemic. Stable. Blood sugar stable. 6. Hyperphosphatemia secondary to acute kidney injury. Maintained on Renvela. 7. Anemia of chronic illness and kidney disease. Maintained on Aranesp. Iron deficiency noted - s/p iv iron. 8. Fluid overload. Plan: Continue with daily dialysis mostly for ultrafiltration. Maintain tube feeds. Avoid nephrotoxins. Continue to monitor renal function and urine output. Monitor for renal recovery. Wean FiO2.
[2020-10-11 11:35] LABS: Glucose,Whole Blood 202 mg/dL (75-99)
[2020-10-11] MEDS: SODIUM CHLORIDE 0.9% 500 ML 500 ML IV SCH (11:45)
[2020-10-11] MEDS: CISATRACURIUM 200 MG in SODIUM CHLORIDE 0.9% 180 ML IV SCH ×3 (11:45→21:13)
[2020-10-11] MEDS: DARBEPOETIN ALFA 40 MCG/0.4 ML SYRINGE SQ SCH (12:51)
--- NOTE | 2020-10-11 13:00 | P.PN ---
Subjective Progress Note Date: 10/11/20 HISTORY OF PRESENT ILLNESS 35-year-old female patient of Dr. Arroyo with past medical history of type 2 diabetes comes in with acute shortness of breath associated with high light s ugars. Patient on admission was found to have a fever of 101.5 pulse rate 125 respiratory rate 20. Blood pressure 132/106. On chest x-ray obtained in the ER suggestive of bilateral infiltrates concerning for call with pneumonia. COVID PCR was positive. On admissions patient had an ABG with a pH of 7.14 pCO2 of 20, pO2 of 59, bicarb of 7. Patient's blood sugar on admission was 424 on assessment today patient's blood work patient had a sodium 135 potassium 5.4 chloride 123 bicarb less than 5 and creatinine 0.73. D-dimer was elevated on admission patient 9 28 patient given 1 L of IV fluids followed by normal saline running at 200 mL/h. Patient was positive for acetone on admission. She will anion gap closed and was switched to D5NS. Insulin drip was continued during the night and was switched to patient's home medication this morning. One dose of remdesiver was ordered. Apparently around noon, A- team was called on the patient secondary to hypoxia patient's oxygen saturation dropped to the 70s and 80s on 100% nonrebreather. Patient was switched to BiPAP on 18/12 and is doing better o FiO2 of 80%. ABG was obtained and ph was 7. 14 pCO2 of 28 bicarb of 7 pO2 of 17. Patient noted to have uncompensated metabolic acidosis with compensated respiratory alkalosis. Stat dose of 1 amp bicarb was given and followed by sodium bicarbonate drip. Insulin drip restarted. Patient's initiated on dexamethasone 6 mg IV twice a day. Potassium phosphate ordered as phosphorus is low. Patient's repeat blood gases suggest a pH of 7.25, CO2 32 pO2 of 72 bicarb 14. I will not normal saline at 100 mL/h as patient's anion gap has increased. Patient given 1 dose of 2 mg of morphine with improvement in respiratory rate. One dose of Ativan 0.5 mg was given. Xanax 0.25 twice a day along with Ativan 0.5 IV every 6 hours ordered for the patient. Vitals were evaluated patient pulse 129 [id number]. She was moved to the ICU. Precedex drip was initiated. Lopressor was initiated at 25 twice a day. Metoprolol tartrate 5 mg IV every 6 hours. Systolic blood pressure more than 160. Started chest x-ray was obtained and suggest stable bilateral consolidation suggestive of COVID-19 pneumonia. 09/12 patient is seen in the ICU is currently mechanically ventilated and sedated on vent settings of respiratory rate 36, tidal volume 375 FiO2 80% PEEP of 18.. Vital signs reviewed patient had a temp of 100.4 pulse 150 respiratory rate 36 oxygen saturation 95% on 80% on fio2 .'s labs are reviewed which patient had a d-dimer 1.84 that is increased to 14.3. Arterial Blood gas suggest ph 7.35, CO2 40, po2 62, . Her BMP suggest a sodium 135 potassium 3.7 chloride 112 bicarb 21 creatinine 1.57 for calcitonin is 3.5 CRP is increased from 8.78.2 LDH is increased to 2614. Patient remains on Pneumovax, propofol drip. Lovenox increased to 50 subcu twice a day. Patient received 2 L of IV fluids. Continue IV fluids at 100 mL/h. Bicarb drip discontinued patient initiated on Zosyn 3.375 every 8 hours. Continue insulin drip at 4 units per hour. Patient is currently in prone positioning 09/13: Patient evaluated in the ICU remains on Ventilation continues to be sedated, in prone position. Vent settings are respiratory rate 36, tidal vital 375, FiO2 70% PEEP of 18. ABG shows pO2 of 82, PCO2 of 39, pH is 7.19. Latest labs show WBC 11.1, hemoglobin 13.2, d-dimer still pending, but yesterday was up to 14.3. Creatinine up to 3.4, BUN 24 sodium 137, potassium 4.0. Patient's urine output has been low, nephrology on consult. Bicarb drip increased to 100 miles an hour, receiving another liter of normal saline, she did have a ultrasound that showed unremarkable bilateral kidneys. Repeat chest x-ray showed bilateral lung infiltrates that are stable. Anion gap has closed, will start Lantus 10 units at at bedtime Novolog every 6 hours. 09/14: Patient is seen in the ICU, still currently mechanically ventilated and sedated. She continues in the prone position. Her oxygen quickly drops if she is not in prone. Patient's kidney function has worsened. Laboratory values show creatinine of 4.87, BUN 33, LDH 2191, C-reactive protein 2.7. ABG shows pH 7.32, pO2 of 60, pCO2 43. Patient is making almost no urine overnight. Nephrology is following patient continues on cefepime for urinary tract infection, culture is still pending. Vascular has been consulted for placement of temporary hemodialysis catheter for plans for dialysis. 09/15: Patient evaluated in the ICU, continues to be mechanically ventilated and sedated on assist control ventilation rate of 36, tidal volume 375, FiO2 100% and PEEP of 18. ABG today shows pO2 58, pCO2 of 45, and pH 7.35. She continues on tube feedings. Yesterday patient underwent ultrasound-guided right internal jugular non-tunneled hemodialysis catheter placement. Patient underwent hemodialysis treatment last night and plans have another hemodialysis treatment today. She continues to make almost no urine. She continues on cefepime for antibiotic coverage, and continues on Decadron and Lovenox. 09/16: Patient seen on follow-up remains in the ICU mechanically ventilated and sedated. She continues on assist control rate of 36, tidal volume 375, FiO2 100% and PEEP of 20. PEEP had to be increased due to patient had to be in supine position for dialysis, will go back to prone position once dialysis is complete. ABG shows pH 7.32, pCO2 49, PaO2 61. Laboratory values showed WBC 11.2, hemoglobin 11, sodium 134, creatinine 4.44, BUN 38. Urine culture shows no growth, blood cultures show no growth to date. Repeat chest x-ray shows bilateral pleural effusions, correlate for ARDS, pulmonary edema, diffuse pneumonia, findings are stable from last exam. Patient does not require any pressors, blood pressure 133/57, heart rate 78. 5/16: Patient was evaluated in the ICU today for follow-up. She continues to be intubated and on mechanical ventilation. Current vent settings are tidal volume 375, FiO2 100% and PEEP of 20. ABG shows pH 7.37, pCO2 40, pO2 102. She continues with intermittent prone positioning. Patient continues to have almost no urine output, maintained on dialysis. Patient received dialysis yesterday without complication. Laboratory values revealed WBC 10.3, hemoglobin 10.4, sodium 132, potassium 3.1, BUN 33, creatinine 4.29, LDH 1913, C-reactive protein 1.3. Urine and sputum cultures are negative, blood cultures show no growth to date. Consult placed to dietary to start TPN[ ] 09/18: She remains in the intensive care unit intubated and on mechanical ventilation with tidal volume 375, FiO2 60 and PEEP of 20. Patient is being prone to daily at approximately 16 hours per day. Pulmonary medicine has added in Dr. Zhang to do PEG tube and trach today. Patient is not on vasopressors. Repeat blood work reveals WBC 12.6, hemoglobin 9.8, platelet count 212. Sodium 133, potassium 3.2, chloride 102, CO2 21, BUN 35 and creatinine 4.12. Blood sugar 126. Patient underwent hemodialysis yesterday with removal of 2 L and is scheduled again today with goal of 2-3 L and is scheduled again tomorrow. 09/19: She is scheduled for hemodialysis today and is off fentanyl temporarily. Patient is status post trach and PEG tube yesterday. And she remains on mechanical ventilation. Pulse ox 93-95%. She has been afebrile, heart rate 64, respiratory rate 36, blood pressure 115/50. Fentanyl is off to improve blood pressure for hemodialysis which is scheduled for today. Contacted vascular surgery about permanent hemodialysis catheter. Repeat blood work reveals WBC 14.3, hemoglobin 9.6, platelet count 200. D-dimer 6.48. LDH 1686. C-reactive protein 1.1. BUN 34 creatinine 3.81. Sodium 130, potassium 3.5, chloride 101, CO2 18. Blood sugars running between 101 198. Plan is to wean off Pneumovax today. Patient remains on insulin drip. Repeat chest x-ray reveals bilateral multifocal confluent opacities consistent with COVID-19. Some improved aeratio n periphery of the left lung and worsening opacities throughout the right lung. 09/20: She remains in the intensive care unit on mechanical ventilation. She has been afebrile, heart rate 65, respiratory rate 37, blood pressure 121/70, pulse ox 91-99%. Repeat blood work reveals WBC 14.5, hemoglobin 9.1, platelet count 216. D-dimer 6.13. Sodium 133, potassium 3.1, chloride 102, CO2 18, BUN 35 and creatinine 4.27. Blood sugars running between 128 and 143. LDH 1717. C- reactive protein 1.7. Patient remains on insulin drip which will be transitioned to NovoLog scale every 6 hours. Patient is scheduled for permanent hemodialysis catheter placement today with vascular surgery. Repeat chest x-ray reveals stable diffuse bilateral interstitial and airspace disease. Possible small right effusion. His work is following for transfer to intermediate care facility. Do not anticipate discharge until next week. 09/21: Patient is undergoing hemodialysis. She remains on mechanical ventilation with tidal volume 375, FiO2 down to 45 and PEEP was decreased to 15. Patient is continued on propofol, fentanyl drips. She is on tube feedings at goal. Patient was taken off insulin drip yesterday and on scale only but blood sugars are running in the 200s, Levemir scheduled at bedtime will be added. Other blood work reveals WBC 13.3, hemoglobin 8.7, platelet count 192. Sodium 137, potassium 3.6, chloride 107, CO2 18, BUN 34 and creatinine 4.21. Repeat chest x-ray is stable. 09/22: She remains in the intensive care on mechanical ventilation with tidal volume 375, FiO2 of 50 and PEEP of 10. Pulse ox is running 96%. She is afebrile, heart rate in the 50s, respiratory rate 36, blood pressure 100/64. Repeat blood work reveals WBC 16.5, hemoglobin 8.9, platelet count 213. Sodium 134, potassium 3.7, chloride 103, CO2 21, BUN 34 and creatinine 3.89. Blood sugars running in the 200s to 324. Levemir increased to 16 units at bedtime and continue NovoLog scale every 6 hours. Patient is on tube feedings at goal. She has a Haley catheter in with a scant amount of dark/brown urine. Fecal management system is in place. Repeat chest x-ray reveals diffuse bilateral airspace infiltrates persist unchanged. Patient is scheduled for hemodialysis tomorrow morning on Friday. 09/23: Patient remains on mechanical ventilation with tidal volume 3.75, FiO2 50 and PEEP of 10. electronic device monitor sinus rhythm. She has no urine output. Fecal management system is in place. She is undergoing dialysis at this time with plan for removal of 2-1/2 L. She has been afebrile, heart rate in the 50s, respiratory rate 36, blood pressure 108/76 and pulse ox 89%. WBC 13.6, hemoglobin 9.1, platelet count 194. Sodium 136, potassium 3.0 and was replaced, chloride 106, CO2 21, BUN 49 creatinine 5.31. Blood sugars are running between 182 and this morning 194. Patient was still in the 200s and 300s. Levemir last evening was increased to 16 units. Patient remains on propofol and fentanyl drips. Lovenox was increased to 60 mg twice daily. 09/24: PEEP was increased today to 20, tidal volume is at 375 and FiO2 of 50%. Patient has been afebrile. She has been started on levo fed. Repeat chest x- ray reveals bilateral multifocal confluent opacities consistent with Covid 19 or ARDS redemonstrated. Nephrology will plan dialysis for tomorrow for 3 L. Patient remains on propofol fentanyl and Nimbex. WBC 12.5, hemoglobin 9.8, platelet count 161. D-dimer 13.3. Sodium 132, potassium 3.4, chloride 102, CO2 20, BUN 48 and creatinine 4.67. Blood sugars extremely elevated to 96-409. LDH 2217. 09/25: Patient remains in the intensive care unit on mechanical ventilation with tidal volume 375, FiO2 50 and PEEP of 20. Patient is afebrile, heart rate 61, respiratory rate 36, blood pressure 102/56, pulse ox 97%. Repeat blood work reveals WBC 9.3, hemoglobin 8.5 and platelet count 171. Sodium 130, potassium 3.7, chloride 100, CO2 20, BUN 61 creatinine 5.65. Blood sugars have been elev ated up to 455. Levemir increased to 20 units twice daily, NovoLog 5 units every 6 hours and continue NovoLog scale. Patient is scheduled for hemodialysis today. Repeat chest x-ray reveals bilateral multifocal and confluent opacities. Decadron and Lovenox dosing change by pulmonary. Patient is off norepinephrine. 09/26: Patient remains in the intensive care unit on mechanical ventilation with tidal volume 375, FiO2 50 and PEEP of 15. She has been afebrile, heart rate 91, blood pressure 114/68, pulse ox 99%. electronic device monitor sinus rhythm. 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 Sodium 134, potassium 3.6, chloride 102, CO2 22, BUN 41 creatinine 4.21. Patient has improved blood sugars this morning running 150s and 160s. Diabetic medications were adjusted yesterday. Patient is awake and alert and interacting. Yesterday, patient had PICC line inserted by interventional radiology. Repeat chest x-ray reveals diffuse airspace infiltrates in both lung ann appear to progress slightly in the interval. 09/27: Patient remains in intensive care unit on mechanical ventilation with improvement of settings with tidal volume 375, FiO2 decreased to 40 and PEEP decreased to 10. Patient is on hemodialysis every other day and plan to remove 3 L today. Patient is more awake and alert. She is slow to respond but is able to follow simple commands. Blood sugars are running between 84 and 123. Repeat blood work reveals WBC 7.1, hemoglobin 8.1, platelets 152. Sodium 135, potassium 3.6, chloride 103, CO2 21, BUN 53 and creatinine 5.88. Repeat chest x-ray revealed cardiomegaly and pulmonary edema. Patient is on tube feedings:. Patient is not require vasopressors and is off sedation. Fecal management system remains in place for brown liquid stool. C. difficile was negative. 09/28: Patient remains on mechanical ventilation with tidal volume 375, FiO2 increased to 80 and PEEP increased to 18. Patient had a rough night was very anxious, no pain. Xanax 0.25 mg 3 times daily was added. There is concern for pulmonary embolism for which patient was started on heparin drip, she is unable to undergo CAT scan. Venous Doppler bilateral lower extremities was nondiagnostic due to extensive edema in obese patient but minimal imaging of the popliteal veins does show flow. Repeat echocardiogram has been ordered. Cefepime has also been ordered at 1 g IV piggyback every 24 hours as well as vancomycin, pharmacy dosing. Patient is back on fentanyl drip, propofol drip and norepinephrine. Blood sugars are elevated and insulin Levemir will be i ncreased to 25 mg twice daily. Ferrlecit infusion has been ordered by nephrology for 4 days. Patient is undergoing hemodialysis today.temperature max 100.2, heart rate 134, respiratory rate 34, blood pressure 120/65, pulse ox 94%. electronic device monitor is sinus tachycardia. Repeat blood work reveals WBC 16.9, hemoglobin 9.7, platelet count 216. D-dimer 8.81. Sodium 134, potassium 3.8, chloride 99, CO2 25, BUN 43 and creatinine 5.36. Blood sugars in the 200s. AST 40. 09/29 Patient had declined more last 48 hours require more sedation, patient is doing hemodialysis, respiratory failure is quite bit worse this time. Patient was inquired the pain is well back on fentanyl drip. Her vent set up with PEEP is limited but higher. No new finding on culture and her chest x-ray continues shows diffuse infiltrate persistent although there is a moderate interval improvement. 09/30 patient's was seen and evaluated. PEEP was reduced to 11 as patient is maintaining good saturation at the current vent settings. 10/01 patient was seen at bedside. She is currently on assist control rate of 28 white tidal volume 350 FiO2 50% and PEEP of 10 which has been reduced by pulmonary as patient name cleaning her oxygen saturation. Arm blood gas was obtained with a pH of 7.35 pCO2 37 pO2 of 63. She remains hemodynamically stable with no need for pressors. Labs were reviewed patient's BUN is 29 crea tinine 3.93 glucose 122 albumin 2.2 sodium 131 chloride 19 hemoglobin is downtrending with a Hb of 7.3 no leukocytosis 7.1. Patient's urine output is minimal at this time. Her rate has increased to 129 and is currently on positive fluid balance even with dialysis. Last dialysis was done yesterday. Continue enteral feeding currently at goal. Antibiotic has been discontinued and continues to remain on DEXA methicillin 4 mg IV daily. 10/02 patient continues to be on trach support with mechanical ventilation. Patient was evaluated by concrete bucket loader and was switched to VC control as patient was noted to be double stacking on and off throughout the night. Respiratory rate continue to 28 tidal volume increased to 400 with a PEEP for Dr. Downey. Patient is maintaining oxygen saturation 91% on the current setting. According to the nurse bedside patient saturation drops significantly or she is moved or her sedation is dropped. Patient is currently on propofol drip, fentanyl drip. She did underwent dialysis today and was able to maintain her low pressure without the need of pressors. Labs reviewed today suggest a WBC of 6.7 hemoglobin of 7.0 and d-dimer 3.9 bicarb 17 BUN 38 creatinine 4.8. LDH is 964. Sodium 1:30 likely secondary to volume overload. Urine sodium and urine osmolality ordered. Patient's glucose this morning is 146. Continue to remain on enteral feeding. Urine output is reduced. Fall catheter will be placed today. Continue to remain on dialysis. 10/03: Patient remains on mechanical ventilation and is back on propofol and fentanyl drips. Patient is currently on VC control with tidal volume 400, FiO2 55 and PEEP of 12. Patient still is not making any urine and is dialysis dependent with next treatment planned for tomorrow with removal of 3-3-1/2 L. PEG tube feedings are at goal. Fecal management system remains in place. At the time of evaluation, patient is off levophed. Repeat chest x-ray reveals stable diffuse bilateral airspace disease correlate for ARDS, pulmonary edema or diffuse pneumonia. Temperature max last evening was 101. Temperature currently 99, heart rate 106, respiratory rate 32, blood pressure 101/50, pulse ox 86%. Repeat blood work reveals WBC 6, hemoglobin 7.4, platelet count 160. D-dimer 4.05. Sodium 133, potassium 3.5, chloride 100, CO2 23, BUN 31 creatinine 3.8. Blood sugars are running between 100 and 170. Ferritin 1514. Liver function test normal. LDH 1016, C-reactive protein 13.6. Prognosis remains guarded. 10/04: Patient remains intubated on mechanical ventilation with tidal volume 400, FiO2 65, PEEP of 14. Patient continues to run fevers and repeat blood culture and urine and urine culture ordered for today. Haley catheter has been removed this patient has no significant urine output at about 20 mL per shift. BladderScan is monitored for greater than 300 and the patient is straight cathed. Hemoglobin is 6.8 and she has been ordered 41 unit of packed RBCs today. She is currently on propofol and fentanyl drips. She is scheduled for hemodialysis today. WBC 4.5, hemoglobin 6.8, platelet count 151. D-dimer 3.28. Sodium 132, potassium 4.1, chloride 100, CO2 22, BUN 37 creatinine 4.74. Blood sugars running between 97 and 110. Ferritin 1801. LDH 859. C-reactive protein 14.4. Chest x-ray reveals correlate for pneumonia, edema, ARDS. Prognosis remains guarded. 10/05: Patient remains in intensive care unit currently on mechanical ventilation with tidal volume 400, FiO2 was increased to 100 and PEEP is at 14. She continues to run fevers which have worsened with temperature max 103.1. She has been tachycardic in the 130s, blood pressure is marginal but not on vasopressors. Pulse ox currently 92%. Repeat blood work reveals WBC 5.5, hemoglobin 7.6, platelet count 190. D-dimer 2.7, ferritin 1770, LDH 932, C- reactive protein 21.4. Blood sugars are running between 100 1669. Electrolytes are normal. BUN 27 and creatinine 3.79. Pancultures were done yesterday including a straight cath for urine culture, sputum culture and blood culture. Arterial line was removed as well as midline. She is currently on propofol, fen tanyl and started on Nimbex today. 10/06: Patient remains in the intensive care unit. Today patient in prone position and remains on mechanical ventilation with tidal volume 350, FiO2 65 and PEEP of 14. Her last documented fever was yesterday at 2 PM. Heart rate is in the 120s, respiratory rate 32, pulse ox 88-92%. CBC is unremarkable. Electrolytes are normal. BUN 30 creatinine 2.93. Blood sugars are running between 135 and 164. Cultures from October 04: Blood culture no growth, sputum culture finalized, urine culture finalized. Catheter tip culture is in process. Repeat chest x-ray shows bilateral interstitial infiltrates. Patient is on tube feedings of Nepro at goal of 30 ML's per hour. Patient underwent dialysis yesterday and is scheduled for repeat dialysis today. 10/07: Patient maintains in the intensive care unit intubated and on mechanical ventilation. She is receiving hemodialysis this morning has been every day. Plan is to remove 2-1/2 L today. Vent settings have changed today with tidal volume 350, FiO2 was increased to 100% and PEEP remains at 14. She has been continued on Nimbex, fentanyl, norepinephrine and propofol. Plan is to prone position patient following dialysis. Repeat chest x-ray reveals worsening interstitial infiltrates. BUN is 26 and creatinine 2.59. LDH 955, C-reactive protein 22.1. Prognosis remains poor. 10/08: Patient remains in intensive care unit intubated and on mechanical ventilation with tidal volume 350, FiO2 60, PEEP of 14. She is pronating today. She is scheduled for hemodialysis on a daily basis. She has been afebrile, heart rate 112, respiratory rate 36, blood pressure 161/88, pulse ox 93%. Repeat blood work reveals WBC 9.9, hemoglobin 9.1, platelet count 320. Sodium 133, potassium 5.3, chloride 100, CO2 20, BUN 29 creatinine 2.44. Blood sugar running between 102 and 139. LDH 1026, C-reactive protein 19.7. 10/09: Patient is undergoing dialysis this morning. She continues to be intubated and on mechanical ventilation with tidal volume 350, 270 and PEEP of 14. Patient is also on propofol, Nimbex, norepinephrine and fentanyl drips. Repeat chest x-ray reveals persistent bilateral multifocal and confluent opacities consistent with Covid 19. She is afebrile, heart rate 116, respiratory rate 36, blood pressure 120/65, pulse ox 91%. Repeat blood work reveals WBC 5.4, hemoglobin 9.2, platelet count 216. D-dimer 2.67, ferritin 2568, LDH 794, C- reactive protein 13.9. Blood sugars have been running 90-104. Creatinine 1.64. She is on daily dialysis treatment. 10/10: She remains in the intensive care unit. She is now out of isolation as a repeat Covid test came back negative. She remains on mechanical ventilation with tidal volume 350, FiO2 70 and PEEP of 14. Patient is also on Nimbex, propofol, norepinephrine, fentanyl drips. She is on PEG tube feedings at goal and tolerating well. Repeat blood work reveals WBC 7.8, hemoglobin 7.5, platelet count 267. Sodium 139, potassium 3.9, chloride 109, CO2 20, BUN 20 creatinine 1.29. Blood sugars are running between 76 and 102. Scheduled Aiyana Log decreased to 3 units. Repeat chest x-ray reveals moderate cardiomegaly and continued pulmonary edema. Slight interval improvement. Patient is continued on daily hemodialysis. 10/11: Patient remains in intensive care unit on mechanical ventilation with tidal volume 325, FiO2 70, PEEP 14. She is currently being prone. She underwent hemodialysis this morning with removal of 4 L of fluid with plan to continue daily treatment. She is currently on Nimbex, fentanyl and propofol. No vasopressor at this time. Fecal management system remains in place. She is on tube feedings currently at hold due to prone positioning. Patient has been afebrile, heart rate 116, respiratory rate 36, blood pressure 100/58, pulse ox 93-96%. Repeat blood work reveals WBC 9.3, hemoglobin 8.1, platelet count 276. Sodium 136, potassium 4.3, chloride 103, CO2 20, BUN 20 creatinine 1.14. Blood sugars running between 133 and 202. REVIEW OF SYSTEMS Unable to obtain due to mechanical ventilation. PHYSICAL EXAMINATION Gen: This is is a 35-year-old black female, patient is intubated and on mechanical ventilation, appears to be comfortable. Patient is in prone position. HEENT: Head is atraumatic, normocephalic. Pupils equal, round. Sclerae is anicteric. Tracheostomy midline. NECK: Supple. No JVD. No lymphadenopathy. No thyromegaly. LUNGS: Coarse bilateral rhonchi. No intercostal retractions. HEART: Regular rate and rhythm. No murmur. ABDOMEN: Soft. Bowel sounds are present. No masses. No tenderness. Fecal management system in place. EXTREMITIES: Trace bilateral pedal edema. No calf tenderness. NEUROLOGICAL: Patient is sedated. ASSESSMENT AND PLAN 1. Acute hypoxic respiratory failure secondary to Covid 19 pneumonia and possible bacterial pneumonia. Patient was intubated on September 11. She is status post 1 dose of Remdesivir and 1 dose of Tocilizumab. Continue Ventolin inhaler 4 times daily, Symbicort twice daily, Decadron 4 mg IV daily, Lovenox 30 mg subcu daily, supplements. Status post PEG tube and trach. Isolation precautions at been removed. 2. Acute diabetic ketoacidosis secondary to Covid 19 pneumonia, uncontrolled with hyperglycemia. Levemir 25 units twice daily, scheduled NovoLog decreased at 3 units every 6 hours and NovoLog scale. 3. Metabolic encephalopathy secondary to Covid 19 and DKA. 4. Sepsis and septic shock secondary to Covid 19 pneumonia with multiorgan failure. Continue as in #1. 5. Acute metabolic acidosis secondary to acute DKA, Covid 19 and acute kidney injury. Sodium bicarb 650 mg 3 times daily. 6. Diabetes mellitus type 2 uncontrolled with A1c 13.6. Continue as above. 7. Hypophosphatemia status post replacement. 8. Hyperkalemia secondary to DKA, resolved. 9. Sinus tachycardia secondary to sepsis, volume deficiency.Continue Lopressor 25 mg twice daily. 10. Acute kidney injury secondary to ATN secondary to Covid 19 and DKA. Continue daily hemodialysis. Permanent dialysis catheter placed. 11. Possible acute gram-negative pneumonia versus MRSA pneumonia. Completed course of antibiotics. 12. Hypertension. 13. Morbid obesity with BMI of 53. 14. DVT prophylaxis. Lovenox. 15. GI prophylaxis. Protonix 40 mg IV push daily. CODE STATUS: Full code Prognosis poor. DISCHARGE PLAN Safety Inspector Acute Care Impression and plan of care have been directed as dictated by the signing physician. Kimberly Boswell nurse practitioner acting as scribe for signing physician. Objective - Vital Signs Vital signs: Vital Signs Temp 97.8 F 10/11/20 09:41 Pulse 116 H 10/11/20 10:00 Resp 32 H 10/11/20 10:00 BP 98/73 10/11/20 10:00 Pulse Ox 96 10/11/20 10:00 Intake & Output 10/10/20 10/11/20 10/11/20 18:59 06:59 18:59 Intake Total 4796.102 1027.141 877.16 Output Total 4000 4300 Balance -2550.256 1375.141 -3422.84 Weight 114.4 kg Intake: IV 276 299 69 0.9 Normal Saline @ KVO 240 260 60 0.9 Normal Saline 36 39 9 Pressure Bag Intake, IV Titration 953.744 856.141 448.16 Amount Cisatracurium 200 mg In 379.285 200 200 Sodium Chloride 0.9% 180 ml @ 1 MCG/KG/MIN 7.308 mls/hr IV .Q24H [facility] Rx#: [id number] Norepinephrine 8 mg In 124.459 33.901 Sodium Chloride 0.9% 250 ml @ 0.05 MCG/KG/MIN 11. 61 mls/hr IV .[id number] [facility] Rx#:[id number] fentaNYL (PF) 2,500 mcg 250 222.24 248.16 In Sodium Chloride 0.9% 200 ml @ Per Protocol IV .Q0M [facility] Rx#:[id number] propofoL 1,000 mg In 200 400 Empty Bag 1 bag @ Per Protocol IV .Q0M [facility] Rx#: [id number] Tube Feeding 130 130 30 Hemodialysis 300 Other 90 90 30 Output: Hemodialysis 4000 4300 Other: Voiding Method Incontinent Incontinent ABP, PAP, CO, CI - Last Documented Arterial Blood Pressure 113/60 - Labs CBC & Chem 7: 10/11/20 03:30 10/11/20 03:30 Labs: Abnormal Lab Results - Last 24 Hours (Table) 10/10/20 10/10/20 10/10/20 Range/Units 11:55 18:08 23:32 RBC (3.80-5.40) m/uL Hgb (11.4-16.0) gm/dL Hct (34.0-46.0) % MCHC (31.0-37.0) g/dL RDW (11.5-15.5) % Metamyelocytes # (Man) (0) k/uL Myelocytes # (Manual) (0) k/uL ABG pH (7.35-7.45) ABG pCO2 (35-45) mmHg ABG pO2 (83-108) mmHg ABG O2 Saturation (94-97) % Sodium (137-145) mmol/L Carbon Dioxide (22-30) mmol/L BUN (7-17) mg/dL Creatinine (0.52-1.04) mg/dL Glucose (74-99) mg/dL POC Glucose (mg/dL) 125 H 100 H 133 H (75-99) mg/dL Total Protein (6.3-8.2) g/dL Albumin (3.5-5.0) g/dL 10/11/20 10/11/20 10/11/20 Range/Units 03:30 03:30 05:19 RBC 2.94 L (3.80-5.40) m/uL Hgb 8.1 L (11.4-16.0) gm/dL Hct 26.4 L (34.0-46.0) % MCHC 30.6 L (31.0-37.0) g/dL RDW 16.5 H (11.5-15.5) % Metamyelocytes # (Man) 0.28 H (0) k/uL Myelocytes # (Manual) 0.09 H (0) k/uL ABG pH 7.27 L (7.35-7.45) ABG pCO2 47 H (35-45) mmHg ABG pO2 74 L (83-108) mmHg ABG O2 Saturation 92.7 L (94-97) % Sodium 136 L (137-145) mmol/L Carbon Dioxide 20 L (22-30) mmol/L BUN 20 H (7-17) mg/dL Creatinine 1.14 H (0.52-1.04) mg/dL Glucose 134 H (74-99) mg/dL POC Glucose (mg/dL) (75-99) mg/dL Total Protein 5.1 L (6.3-8.2) g/dL Albumin 2.4 L (3.5-5.0) g/dL 10/11/20 10/11/20 Range/Units 06:03 11:33 RBC (3.80-5.40) m/uL Hgb (11.4-16.0) gm/dL Hct (34.0-46.0) % MCHC (31.0-37.0) g/dL RDW (11.5-15.5) % Metamyelocytes # (Man) (0) k/uL Myelocytes # (Manual) (0) k/uL ABG pH (7.35-7.45) ABG pCO2 (35-45) mmHg ABG pO2 (83-108) mmHg ABG O2 Saturation (94-97) % Sodium (137-145) mmol/L Carbon Dioxide (22-30) mmol/L BUN (7-17) mg/dL Creatinine (0.52-1.04) mg/dL Glucose (74-99) mg/dL POC Glucose (mg/dL) 142 H 202 H (75-99) mg/dL Total Protein (6.3-8.2) g/dL Albumin (3.5-5.0) g/dL Microbiology - Last 24 Hours (Table) 10/04/20 12:30 Blood Culture - Final Blood No Growth after 144 hours
[2020-10-11 13:25] LABS: ABG Base Excess -4.9 mmol/L; ABG HCO3 24 mmol/L (21-25); ABG Oxygen Saturation 87.9 % (94-97); ABG PCO2 66 mmHg (35-45); ABG PO2 69 mmHg (83-108); ABG TCO2 26 mmol/L (19-24)
[2020-10-11 13:34] LABS: ABG PH 7.16 (7.35-7.45); Allen Test Performed? No
--- NOTE | 2020-10-11 14:25 | P.PN ---
Subjective Progress Note Date: 10/11/20 CHIEF COMPLAINT: COVID-19 pneumonia HISTORY OF PRESENT ILLNESS: Patient is in the ICU for COVID-19 pneumonia and respiratory failure. She is status post tracheostomy and PEG tube placement with Dr. Hollis. Patient is tolerating tube feedings. Her to feedings are at goal at 30 mL per hour. Patient remains on mechanical ventilation. Patient's repeat Covid tests came back negative. Patient getting hemodialysis again today. They're planning to place patient in prone position today. Afebrile WBC 9.3 Patient seen and examined with Dr. hollis PHYSICAL EXAM: VITAL SIGNS: Reviewed. GENERAL: Well-developed in no acute distress. HEENT: No sclera icterus. Extraocular movements grossly intact. Moist buccal mucosa. Head is atraumatic, normocephalic. Tracheostomy site clean dry and intact. No evidence of bleeding ABDOMEN: Soft. Nondistended. Nontender. PEG tube site clean dry and intact NEUROLOGIC: Sedated ASSESSMENT: 1. Acute hypoxic respiratory failure with prolonged mechanical ventilation due to COVID-19 pneumonia status post tracheostomy placement 2. Severe protein calorie malnutrition status post PEG tube placement PLAN: -Continue tube feedings -Continue supportive care -Continue ICU management Physician Processing Manager note has been reviewed by physician. Signing provider agrees with the documented findings, assessment, and plan of care. Objective - Vital Signs Vital signs: Vital Signs Temp 98.2 F 10/11/20 12:00 Pulse 113 H 10/11/20 13:00 Resp 32 H 10/11/20 13:00 BP 108/68 10/11/20 13:00 Pulse Ox 87 L 10/11/20 13:00 Intake & Output 10/10/20 10/11/20 10/11/20 18:59 06:59 18:59 Intake Total 8512.279 7420.141 1066.16 Output Total 4000 4300 Balance -2550.256 1375.141 -3233.84 Weight 114.4 kg 114.4 kg Intake: IV 276 299 138 0.9 Normal Saline @ KVO 240 260 120 0.9 Normal Saline 36 39 18 Pressure Bag Intake, IV Titration 953.744 856.141 548.16 Amount Cisatracurium 200 mg In 379.285 200 200 Sodium Chloride 0.9% 180 ml @ 1 MCG/KG/MIN 7.308 mls/hr IV .Q24H [facility] Rx#: [id number] Norepinephrine 8 mg In 124.459 33.901 Sodium Chloride 0.9% 250 ml @ 0.05 MCG/KG/MIN 11. 61 mls/hr IV .[id number] [facility] Rx#:[id number] fentaNYL (PF) 2,500 mcg 250 222.24 248.16 In Sodium Chloride 0.9% 200 ml @ Per Protocol IV .Q0M [facility] Rx#:[id number] propofoL 1,000 mg In 200 400 100 Empty Bag 1 bag @ Per Protocol IV .Q0M [facility] Rx#: [id number] Tube Feeding 130 130 50 Hemodialysis 300 Other 90 90 30 Output: Hemodialysis 4000 4300 Other: Voiding Method Incontinent Incontinent ABP, PAP, CO, CI - Last Documented Arterial Blood Pressure 109/68 - Labs CBC & Chem 7: 10/11/20 03:30 10/11/20 03:30 Labs: Abnormal Lab Results - Last 24 Hours (Table) 10/10/20 10/10/20 10/11/20 Range/Units 18:08 23:32 03:30 RBC 2.94 L (3.80-5.40) m/uL Hgb 8.1 L (11.4-16.0) gm/dL Hct 26.4 L (34.0-46.0) % MCHC 30.6 L (31.0-37.0) g/dL RDW 16.5 H (11.5-15.5) % Metamyelocytes # (Man) 0.28 H (0) k/uL Myelocytes # (Manual) 0.09 H (0) k/uL ABG pH (7.35-7.45) ABG pCO2 (35-45) mmHg ABG pO2 (83-108) mmHg ABG Total CO2 (19-24) mmol/L ABG O2 Saturation (94-97) % Sodium (137-145) mmol/L Carbon Dioxide (22-30) mmol/L BUN (7-17) mg/dL Creatinine (0.52-1.04) mg/dL Glucose (74-99) mg/dL POC Glucose (mg/dL) 100 H 133 H (75-99) mg/dL Total Protein (6.3-8.2) g/dL Albumin (3.5-5.0) g/dL 10/11/20 10/11/20 10/11/20 Range/Units 03:30 05:19 06:03 RBC (3.80-5.40) m/uL Hgb (11.4-16.0) gm/dL Hct (34.0-46.0) % MCHC (31.0-37.0) g/dL RDW (11.5-15.5) % Metamyelocytes # (Man) (0) k/uL Myelocytes # (Manual) (0) k/uL ABG pH 7.27 L (7.35-7.45) ABG pCO2 47 H (35-45) mmHg ABG pO2 74 L (83-108) mmHg ABG Total CO2 (19-24) mmol/L ABG O2 Saturation 92.7 L (94-97) % Sodium 136 L (137-145) mmol/L Carbon Dioxide 20 L (22-30) mmol/L BUN 20 H (7-17) mg/dL Creatinine 1.14 H (0.52-1.04) mg/dL Glucose 134 H (74-99) mg/dL POC Glucose (mg/dL) 142 H (75-99) mg/dL Total Protein 5.1 L (6.3-8.2) g/dL Albumin 2.4 L (3.5-5.0) g/dL 10/11/20 10/11/20 Range/Units 11:33 13:22 RBC (3.80-5.40) m/uL Hgb (11.4-16.0) gm/dL Hct (34.0-46.0) % MCHC (31.0-37.0) g/dL RDW (11.5-15.5) % Metamyelocytes # (Man) (0) k/uL Myelocytes # (Manual) (0) k/uL ABG pH 7.16 L* (7.35-7.45) ABG pCO2 66 H (35-45) mmHg ABG pO2 69 L (83-108) mmHg ABG Total CO2 26 H (19-24) mmol/L ABG O2 Saturation 87.9 L (94-97) % Sodium (137-145) mmol/L Carbon Dioxide (22-30) mmol/L BUN (7-17) mg/dL Creatinine (0.52-1.04) mg/dL Glucose (74-99) mg/dL POC Glucose (mg/dL) 202 H (75-99) mg/dL Total Protein (6.3-8.2) g/dL Albumin (3.5-5.0) g/dL Microbiology - Last 24 Hours (Table) 10/04/20 12:30 Blood Culture - Final Blood No Growth after 144 hours
[2020-10-11] MEDS ORDERED: CISATRACURIUM 2 MG/ML 5 ML VIAL IV ONE (14:54)
[2020-10-11 17:31] LABS: Glucose,Whole Blood 165 mg/dL (75-99)
[2020-10-11] MEDS: NOREPINEPHRINE 8 MG in SODIUM CHLORIDE 0.9% 250 ML IV SCH (17:54)
[2020-10-11 20:52] LABS: Glucose,Whole Blood 127 mg/dL (75-99)
[2020-10-12 00:26] LABS: Glucose,Whole Blood 124 mg/dL (75-99)
[2020-10-12] MEDS: CISATRACURIUM 200 MG in SODIUM CHLORIDE 0.9% 180 ML IV SCH ×4 (00:57→20:46)
[2020-10-12] MEDS: INSULIN ASPART (NovoLOG) 100 UNIT/ML VIAL SQ SCH ×8 (00:58→17:54)
[2020-10-12] MEDS: fentaNYL (PF) 2,500 MCG in SODIUM CHLORIDE 0.9% 200 ML IV SCH ×4 (02:53→19:23)
[2020-10-12 04:04] LABS: Anisocytosis Slight; HCT 25.9 % (34.0-46.0); HGB 8.1 gm/dL (11.4-16.0); Hypochromasia Marked; MCH 28.5 pg (25.0-35.0); MCHC 31.5 g/dL (31.0-37.0); MCV 90.5 fL (80.0-100.0); Mean Platelet Volume 8.7; Platelet Count 273 k/uL (150-450); Poikilocytosis Slight; RBC 2.86 m/uL (3.80-5.40); RDW 16.6 % (11.5-15.5); WBC 10.4 k/uL (3.8-10.6)
[2020-10-12 04:28] LABS: ALT 13 U/L (4-34); AST 18 U/L (14-36); African American GFR (CKD) >90 (>60 ml/min/1.73 sqM); Albumin 2.4 g/dL (3.5-5.0); Alkaline Phosphatase 113 U/L (38-126); Anion Gap 14 mmol/L; Blood Urea Nitrogen 21 mg/dL (7-17); Calcium 9.3 mg/dL (8.4-10.2); Carbon Dioxide 19 mmol/L (22-30); Chloride 100 mmol/L (98-107); Glucose 121 mg/dL (74-99); Non-African American GFR(CKD) 81 (>60 ml/min/1.73 sqM); Potassium 4.7 mmol/L (3.5-5.1); Sodium 133 mmol/L (137-145); Total Bilirubin 0.3 mg/dL (0.2-1.3); Total Protein 5.3 g/dL (6.3-8.2)
[2020-10-12 04:36] LABS: Band Neutrophils % 21 %; Eosinophils # (M) 0.52 k/uL (0-0.7); Lymphocytes # (M) 0.73 k/uL (1.0-4.8); Metamyelocytes # (M) 1.46 k/uL (0); Metamyelocytes % 14 %; Monocytes # (M) 0.62 k/uL (0-1.0); Myelocytes # (M) 0.52 k/uL (0); Myelocytes % 5 %; Neutrophils % (M) 43 %; Nucleated Red Blood Cells 0 /100 WBC (0-0); Total Cells Counted 200
[2020-10-12 04:37] LABS: Anisocytosis (M) Present; Poikilocytosis (M) Present
[2020-10-12 04:52] LABS: ABG Base Excess -6.3 mmol/L; ABG HCO3 22 mmol/L (21-25); ABG Oxygen Saturation 80.7 % (94-97); ABG PCO2 60 mmHg (35-45); ABG TCO2 24 mmol/L (19-24); Allen Test Performed? Yes
[2020-10-12 04:56] LABS: ABG PH 7.17 (7.35-7.45)
[2020-10-12 04:57] LABS: ABG PO2 54 mmHg (83-108)
[2020-10-12 06:36] LABS: Glucose,Whole Blood 143 mg/dL (75-99)
[2020-10-12] MEDS: ARTIFICIAL TEARS-HYPROMELLOSE DROPS 15 ML BTL BOTH EYES SCH ×5 (06:46→21:00)
[2020-10-12] MEDS: ALBUTEROL HFA INHALER INHALATION SCH ×4 (07:23→20:32)
[2020-10-12] MEDS: SYMBICORT 160-4.5 MCG INHALER INHALATION SCH ×2 (07:23→20:33)
--- NOTE | 2020-10-12 07:47 | XR ---
EXAMINATION TYPE: XR chest 1V portable DATE OF EXAM: 10/12/2020 CLINICAL HISTORY: Difficulty breathing and pneumonia progress study. TECHNIQUE: Single AP portable supine view of the chest is obtained. COMPARISON: Chest x-ray from one day earlier and older studies FINDINGS: Stable tracheostomy tube and right internal jugular large bore dialysis catheter. Bilateral multifocal and confluent opacities redemonstrated. Increasing confluent appearance noted. H eart size stable and mildly enlarged. Osseous structures are intact. IMPRESSION: Persistent bilateral multifocal and confluent opacities consistent with covid-19 infectio n and/or ARDS. Continued slight interval progression felt present.
--- NOTE | 2020-10-12 08:47 | P.PN ---
Subjective Progress Note Date: 10/12/20 Principal diagnosis: Acute respiratory failure secondary to Covid 19 pneumonia. Patient was reevaluated today on 10/05/2020, remains in the ICU, intubated, mechanically ventilated, patient is doing worse today compared to the last few days, her chest x-ray is worsening, her O2 requirement is rising and she is back on the percent FiO2, I have also increased her PEEP to 16, assist control rate was increased to 52, FiO2 is on the percent. ABG earlier today on 70% FiO2 showed a pO2 of 56 pCO2 of 50 pH of 7.32. She was on assist control rate of 28 tidal volume of 400 FiO2 70% and PEEP of 14. Patient had to be placed on a higher dose of propofol which was increased to 70 fentanyl is at 2 mcg/kg/m, patient will be placed on Nimbex as I'm having difficulty oxygenating the pat ient in spite of high FiO2. She is scheduled to undergo hemodialysis again today, she had 4 L off yesterday. Remains on tube feeds using vital AF at 30 MLS per hour. Patient is tachycardic rate is 129, blood pressure is marginal 86/45, hence may recommend adding norepinephrine. The overall picture clearly showing deterioration in this patient's clinical status, and I have a feeling that this patient will continue to do poorly and she is now maximized on treatment. Again her chest x-ray is showing significant worsening of her infiltrates. Patient was reevaluated today on 10/06/2020, remains in the ICU, intubated and mechanically ventilated, and she is presently in prone position since last night for the next few hours until dialysis which is supposed to start sometime in the next couple of hours. Patient remains on assist control mode of mechanical ventilation, it is volume control with volume of 350 rate of 3 to FiO2 65%. 14. Her ABG showed a pO2 of 68 pCO2 of 52 pH of 7.28. Patient remains on propofol at 75 fentanyl at 3 mcg/kg/h she is also on norepinephrine at 0.02 and Nimbex at 3 mcg/kg/m. Patient is scheduled to have hemodialysis today. Chest x-ray continues to show evidence of bilateral interstitial infiltrates. Patient is on enteral feeding in the form of Nepro at 30/30. Patient has been proned now for the last 17 hours. Electrolytes are normal however her BUN is 30 creatinine 2.93. Blood sugar is 147 WBC count is 5.1 hemoglobin is 11.4. Patient remains on the COVID-19 cocktail. Remains on albuterol, Symbicort, Decadron 4 mg IV push daily, Lovenox 30 mg subcu daily. Insulin protocol. Her tonic 40 mg IV push daily. Off antibiotics. Patient was reevaluated today on 10/07/2020, remains in the ICU, intubated and mechanically ventilated, presently receiving hemodialysis. She is on assist control rate of 32, tidal volume of 350, FiO2 is up to on the percent today, and PEEP of 14. Higher PEEP did not seem to help much, hence I kept her on a PEEP of 14. ABG today showed a pO2 of 63 pCO2 53 pH of 7.25. A shunt is on Nimbex at 4 mcg/kg/m, fentanyl 3 mcg/kg/h, norepinephrine at 0.07 mcg/kg/m, propofol at 75 mcg/kg/m. Again the patient is receiving hemodialysis, and I have instructed the nurses today to go back into prone position after she is done with dialysis. Chest x-ray continues to show worsening interstitial infiltrates and ARDS pic ture. Labs were all reviewed. Her medications were all reviewed today. Basic metabolic profile is normal BUN is 26 creatinine 2.59. LDH is 955 and C- reactive protein is 22.1. Not much of a change in the last few days. Patient was reevaluated today on 10/08/2020, remains in the ICU, intubated and mechanically ventilated, patient is presently in prone position her ABG this morning showed significant improvement in her oxygenation, however continues to have a combined metabolic and respiratory acidosis. She is now on assist control of 350 rate of 36 FiO2 down to 60% PEEP at 14. ABG on 100% showed a pO2 of 209 pCO2 of 59 pH of 7.15. Her assist control rate was increased to 36. Kept her on the same tidal volume of 350. 2 A of bicarb were given. Patient is also on bicarb drip. Patient remains on propofol at 75 mcg/kg/m, she is on Nimbex at 4 mcg/kg/m, and norepinephrine at 0.01 mcg/kg/m. Patient is also on fentanyl at 3 mcg/kg per hour. During my evaluation, the patient was in prone position, however should be placed back in supine position once dialysis is ready and the patient will be dialyzed again today. Chest x-ray from yesterday continues to show evidence of interstitial edema and ARDS. No chest x-ray has been done yet today because the patient was in prone position. Patient remains on Decadron, remains on Lovenox, she is off antibiotics for now. CBC showed WBC 9.9 hemoglobin is 9.1. Hematocrit is 28.7. Electrodes are normal. BUN is 29 and creatinine 2.44. Bicarb is 20. LDH is up a bit 1026, C-reactive protein is about the same at 19.7. Progress note dated 10/09/2020. This is a 35-year-old black female with history of acute COVID 19 infection, with acute hypoxemic respiratory failure. She was admitted way back on September 10. Because of failure to wean from mechanical ventilation, she underwent tracheostomy and PEG tube placement on September 18. Currently remains on the ventilator. She is on the VC + (PRVC) modality, with a targeted tidal volume 350 and inspiratory time of 0.9 seconds. Her rate is set at 36. FiO2 70%, and PEEP of 14. On those settings, her arterial blood gases show a PaO2 of 72, pCO2 47, and pH 7.23. Currently, the patient's getting daily hemodialysis. Her drips including propofol at 75 mcg/kg/m, Nimbex at 3.5 mcg/kg/m, with [id number] monitoring, fentanyl at 3 g kilogram per hour, norepinephrine at 7 mcg/m, saline at 20 mL an hour, and vital 1.2 at 10 mL an hour, which is goal. White count 5.4, hemoglobin 9.2, hematocrit 28.8, and platelet count 217,000. Sodium 137, potassium 4.2, chlorides 108, CO2 19, anion gap 10, BUN 22, and creatinine 1.64. The patient's chest x-ray is consistent with bilateral infilt rates, and is essentially unchanged, and consistent with a diagnosis of coronavirus pneumonia. Progress note dated 10/10/2020. 35-year-old black female, with a history of COVID 19 infection and acute hypoxemic respiratory failure. She was admitted way back on September 10. Because of failure to wean from mechanical ventilation, she underwent tracheostomy and PEG tube placement on September 18. She remains on the mechanical ventilator. She is on the pressure regulated volume control modality. Her targeted tidal volume is 350 mL, and her inspiratory time 0.9 seconds. The patient's on 70% FiO2, PEEP o f 14, with a rate of 36. The patient is receiving Nimbex at 4.5 mcg/kg/m, propofol at 65 mcg/kg/m, norepinephrine at 3.5 mcg/m, fentanyl at 2.5 mcg/kg/h, and vital AF 1.2 at 10 mL an hour which is goal. The patient's blood gases from this morning show a PaO2 of 79, 5, and a pH is 7.29. Today's chest x-ray is currently still pending. Overnight, there've been no major changes in her condition. White count 7.8, hemoglobin 7.5, hematocrit 23.1, and platelet count 267,000. Sodium 139, potassium 3.9, chlorides 109, CO2 20, anion gap 10, BUN 20, with creatinine 1.29. Progress note dated 10/11/2020. 35-year-old black female with a history of COVID 19 infection and acute hypoxemic respiratory failure. She was admitted back on September 10. Because of failure to wean from mechanical ventilation, she underwent tracheostomy and PEG tube placement on September 18. She remains on the mechanical ventilator to this day. Currently, she is on pressure regulated [place] control, with a targeted tidal volume of 350, inspiratory time of 0.9 seconds, FiO2 70%, PEEP of 14, and a rate of 36. Her blood gases show a PaO2 of 74, pCO2 46, pH 7.28. In an attempt to reduce the FiO2, I was going to go up on the PEEP, but I was reminded that the patient has a issue with high airway pressures, potentially causing airway and alveolar trauma. For that reason, I will switch her to volume assist control modality, with a tidal volume at 325, rate 32, FiO2 70%, and PEEP of 14. This will cause permissive hypercapnic ventilation. I'm okay with this, and I will except a pH of 7.15 or higher. He blood gas will be done in one hour. The patient has daily hemodialysis. We will attempt to prone the patient for 16 hours today. She apparently does well with that modality. Currently, she is on saline at KVO, propofol at 65 mcg/kg/m, fentanyl at 2.5 mcg/kg/h, Nimbex at 3.5 mcg/kg/m, and norepinephrine has been weaned off. She is getting vital AF, at 10 mL an hour, which is goal. Over the last 3 days, since I've been seeing her, there is not been much in the way of progress. White count 9.3, hemoglobin 8.1, hematocrit 26.4, platelet count 276,000. Sodium 136, potassium 4.3, chlorides 103, CO2 20, anion gap 13, BUN and creatinine were 20 and 1.14. Chest x-ray today shows improvement of volume status. Progress note dated 10/12/2020. 35-year-old black female again seen in the intensive care unit, room 265. She has a history of coronavirus pneumonia with acute hypoxemic respiratory failure. She was admitted way back on September 10. She ended up with a tracheostomy and PEG tube placement on September 18 for failure to wean from mechanical ventilation. She remains on the ventilator. She is on volume assist control mode rate of 32, tidal volume 325, FiO2 70%, PEEP of 14. Arterial blood gases show pO2 of 54, pCO2 60, pH is 7.17. She's getting hemodialysis today. Peak airway pressures about 21 cm water. He is getting propofol at 75 mcg/kg/m, fentanyl at 3.5 mcg/kg/h, Nimbex at 7 mcg/kg/m, and saline at KVO. Her tube feeds include vital AF at 10 mL an hour, which is goal. She currently tested negative for coronavirus. She is getting hemodialysis today. Chest x-rays essentially unchanged. White count 10.4, he will May 0.1, hematocrit 25.9, platelet count 273,000. Sodium 133, potassium 4.7, chlorides 100, CO2 19, anion gap 14, BUN and creatinine were 21 and 0.91. This electrolyte profile consistent with an anion gap metabolic acidosis. Saturations currently are 95%. Medications are reviewed. Objective - Vital Signs Vital signs: Vital Signs Temp 98.7 F 10/12/20 04:00 Pulse 124 H 10/12/20 07:00 Resp 32 H 10/12/20 07:00 BP 108/75 10/12/20 07:00 Pulse Ox 96 10/12/20 07:00 Intake & Output 10/11/20 10/12/20 10/12/20 18:59 06:59 18:59 Intake Total 4026.511 1784.421 327.561 Output Total 4300 Balance -2330.799 2020.421 327.561 Weight 114.4 kg 117.1 kg Intake: IV 253 299 0.9 Normal Saline @ KVO 220 260 0.9 Normal Saline 33 39 Pressure Bag Intake, IV Titration 4326.574 7074.421 327.561 Amount Cisatracurium 200 mg In 379.717 563.391 Sodium Chloride 0.9% 180 ml @ 1 MCG/KG/MIN 7.308 mls/hr IV .Q24H [facility] Rx#: [id number] fentaNYL (PF) 2,500 mcg 497.644 430.430 227.561 In Sodium Chloride 0.9% 200 ml @ Per Protocol IV .Q0M [facility] Rx#:[id number] propofoL 1,000 mg In 368.84 547.6 100 Empty Bag 1 bag @ Per Protocol IV .Q0M [facility] Rx#: [id number] Oral 20 Tube Feeding 60 120 Blood Product 30 Hemodialysis 300 Other 60 60 Output: Urine 0 Hemodialysis 4300 Other: Voiding Method Incontinent ABP, PAP, CO, CI - Last Documented Arterial Blood Pressure 117/64 - Exam No acute distress, sedated and paralyzed, with a midline tracheostomy tube. HEENT examination is grossly unremarkable. Neck supple. Full range of motion. No adenopathy thyromegaly or neck vein distention. Midline tracheostomy tube noted. Cardiovascular examination reveals regular rhythm rate. S1-S2 normal. No S3 or S4. No discernible murmur noted. Heart sounds are distant. Heart rate 124 beats per minute. Lungs reveal diffuse coarse rhonchi and bilateral crackles. No wheezes. Breath sounds equal bilaterally but diminished throughout. Abdomen soft bowel sounds are heard. No masses or tenderness. PEG tube noted. Extremities are intact. No cyanosis clubbing or edema. Skin is without rash or lesion. Neurologic examination cannot be adequately assessed as the patient's currently sedated and paralyzed. - Labs CBC & Chem 7: 10/12/20 03:30 10/12/20 03:45 Labs: Abnormal Lab Results - Last 24 Hours (Table) 10/11/20 10/11/20 10/11/20 Range/Units 11:33 13:22 17:30 RBC (3.80-5.40) m/uL Hgb (11.4-16.0) gm/dL Hct (34.0-46.0) % RDW (11.5-15.5) % Lymphocytes # (Manual) (1.0-4.8) k/uL Metamyelocytes # (Man) (0) k/uL Myelocytes # (Manual) (0) k/uL ABG pH 7.16 L* (7.35-7.45) ABG pCO2 66 H (35-45) mmHg ABG pO2 69 L (83-108) mmHg ABG Total CO2 26 H (19-24) mmol/L ABG O2 Saturation 87.9 L (94-97) % Sodium (137-145) mmol/L Carbon Dioxide (22-30) mmol/L BUN (7-17) mg/dL Glucose (74-99) mg/dL POC Glucose (mg/dL) 202 H 165 H (75-99) mg/dL Total Protein (6.3-8.2) g/dL Albumin (3.5-5.0) g/dL 10/11/20 10/12/20 10/12/20 Range/Units 20:50 00:25 03:30 RBC 2.86 L (3.80-5.40) m/uL Hgb 8.1 L (11.4-16.0) gm/dL Hct 25.9 L (34.0-46.0) % RDW 16.6 H (11.5-15.5) % Lymphocytes # (Manual) 0.73 L (1.0-4.8) k/uL Metamyelocytes # (Man) 1.46 H (0) k/uL Myelocytes # (Manual) 0.52 H (0) k/uL ABG pH (7.35-7.45) ABG pCO2 (35-45) mmHg ABG pO2 (83-108) mmHg ABG Total CO2 (19-24) mmol/L ABG O2 Saturation (94-97) % Sodium (137-145) mmol/L Carbon Dioxide (22-30) mmol/L BUN (7-17) mg/dL Glucose (74-99) mg/dL POC Glucose (mg/dL) 127 H 124 H (75-99) mg/dL Total Protein (6.3-8.2) g/dL Albumin (3.5-5.0) g/dL 10/12/20 10/12/20 10/12/20 Range/Units 03:45 04:46 06:33 RBC (3.80-5.40) m/uL Hgb (11.4-16.0) gm/dL Hct (34.0-46.0) % RDW (11.5-15.5) % Lymphocytes # (Manual) (1.0-4.8) k/uL Metamyelocytes # (Man) (0) k/uL Myelocytes # (Manual) (0) k/uL ABG pH 7.17 L* (7.35-7.45) ABG pCO2 60 H (35-45) mmHg ABG pO2 54 L* (83-108) mmHg ABG Total CO2 (19-24) mmol/L ABG O2 Saturation 80.7 L (94-97) % Sodium 133 L (137-145) mmol/L Carbon Dioxide 19 L (22-30) mmol/L BUN 21 H (7-17) mg/dL Glucose 121 H (74-99) mg/dL POC Glucose (mg/dL) 143 H (75-99) mg/dL Total Protein 5.3 L (6.3-8.2) g/dL Albumin 2.4 L (3.5-5.0) g/dL Assessment and Plan Assessment: Acute hypoxemic respiratory failure, secondary to COVID 19 pneumonia, with ARDS, with admission to hospital on September 10, transferred to ICU on the , intubation on September 11, and tracheostomy and PEG tube placement on September 18. Acute respiratory distress syndrome (ARDS). Acute kidney injury, currently on hemodialysis. Acute diabetic ketoacidosis, resolved. Sepsis, secondary to COVID 19 pneumonia. Anion gap metabolic acidosis. Poorly controlled type 2 diabetes. Elevated inflammatory markers secondary to coronavirus infection. History of essential hypertension. Generalized anxiety disorder. Morbid obesity. Plan: Plan dated 10/09/2020. The patient remains on the pressure regulated volume control mode of ventilation. The patient is being nourished at goal. The patient remains on propofol, Nimbex, and fentanyl. In addition, the patient remains on no repinephrine. Labs, x-rays, and medications are all reviewed. Prognosis is very poor. We will continue to follow. Additional recommendations and suggestions are forthcoming. The patient remains on daily hemodialysis. Plan dated 10/10/2020. The patient remains about the same. She remains on the ventilator. The patient is status post tracheostomy and PEG tube placement. She remains sedated with propofol and fentanyl. She is also chemically paralyzed with Nimbex. She remains on norepinephrine at 8.5 mcg/m for low blood pressure. Cultures are all negative. She remains on periodic hemodialysis. Additional recommendations and suggestions are forthcoming. Diagnosis is guarded. We will continue to follow make recommendations where appropriate. Plan dated 10/11/2020. The patient remains on mechanical ventilator. We will attempt to prone the patient today for 16 hours, to improve oxygenation. In addition, the patient is switched from pressure regulated volume control modality to volume assist control. Settings include tidal volume at 325, rate 32, FiO2 70%, PEEP of 14. A repeat blood gas to be done in an hour. Additional recommendations and suggestions are forthcoming. The patient is currently undergoing daily hemodialysis. Prognosis remains very poor. We will continue to follow make recommendations where appropriate. Plan dated 10/12/2020. The patient remains on mechanical ventilator. We'll see for can wean down the Nimbex. This seems like a high-dose to me. He should be doing [id number] monitoring. The patient is receiving hemodialysis today. Saturations are 95 and 96%. Peak airway pressures 41 cm water. Additional recommendations and suggestions are forthcoming. Prognosis is very guarded. She is getting nutrition at goal. The patient does better in terms of her saturations, when she is in the prone position. Today we will place her in the prone position again. Time with Patient: Greater than 30
[2020-10-12] MEDS: INSULIN DETEMIR (LEVEMIR) 100 UNIT/ML SYR SQ SCH ×2 (09:00→22:42)
[2020-10-12] MEDS: SEVELAMER 800 MG TAB PO SCH ×3 (09:02→15:11)
[2020-10-12] MEDS: ASCORBIC ACID 500 MG TAB PO SCH ×2 (09:06→22:47)
[2020-10-12] MEDS: ZINC SULFATE 220 MG CAP PO SCH (09:06)
[2020-10-12] MEDS: CHOLECALCIFEROL 25 MCG (1000 IU) TABLET PO SCH (09:06)
[2020-10-12] MEDS: SODIUM BICARBONATE TAB 650 MG TAB PO SCH ×3 (09:06→22:47)
[2020-10-12] MEDS: DEXAMETHASONE SOD PHOSPHATE 4 MG/ML 1 ML VIAL IV SCH (09:06)
[2020-10-12] MEDS: ENOXAPARIN 40 MG/0.4 ML SYRINGE SQ SCH (09:07)
[2020-10-12] MEDS: PANTOPRAZOLE 40 MG/10 ML VIAL IVP SCH (09:10)
--- NOTE | 2020-10-12 10:04 | P.PN ---
Subjective Patient is seen in follow-up for acute kidney injury. Tolerating dialysis well. Off vasopressors. Oliguric. Status post tracheostomy and PEG tube placement this admission. Receiving tube feeding. Currently on 70% FiO2. No changes overnight. Vital signs: Stable. General: The patient appeared well nourished and normally developed. HEENT: Tracheostomy noted. LUNGS: Breath sounds decreased. HEART: Regular rate and rhythm. Abdomen: Soft, no distention. EXTREMITITES: 1+ edema. Objective - Vital Signs Vital signs: Vital Signs Temp 98.2 F 10/12/20 08:00 Pulse 124 H 10/12/20 09:00 Resp 32 H 10/12/20 09:00 BP 108/75 10/12/20 07:00 Pulse Ox 94 L 10/12/20 09:00 Intake & Output 10/11/20 10/12/20 10/12/20 18:59 06:59 18:59 Intake Total 4118.961 6927.421 574.837 Output Total 4300 Balance -2330.799 2020.421 574.837 Weight 114.4 kg 117.1 kg Intake: IV 253 299 46 0.9 Normal Saline @ KVO 220 260 40 0.9 Normal Saline 33 39 6 Pressure Bag Intake, IV Titration 2894.390 7777.421 478.837 Amount Cisatracurium 200 mg In 379.717 563.391 151.276 Sodium Chloride 0.9% 180 ml @ 1 MCG/KG/MIN 7.308 mls/hr IV .Q24H [facility] Rx#: [id number] fentaNYL (PF) 2,500 mcg 497.644 430.430 227.561 In Sodium Chloride 0.9% 200 ml @ Per Protocol IV .Q0M [facility] Rx#:[id number] propofoL 1,000 mg In 368.84 547.6 100 Empty Bag 1 bag @ Per Protocol IV .Q0M [facility] Rx#: [id number] Oral 20 Tube Feeding 60 120 20 Blood Product 30 Hemodialysis 300 Other 60 60 30 Output: Urine 0 Hemodialysis 4300 Other: Voiding Method Incontinent ABP, PAP, CO, CI - Last Documented Arterial Blood Pressure 126/71 - Labs CBC & Chem 7: 10/12/20 03:30 10/12/20 03:45 Labs: Abnormal Lab Results - Last 24 Hours (Table) 10/11/20 10/11/2010/11/21 Range/Units 11:33 13:22 17:30 RBC (3.80-5.40) m/uL Hgb (11.4-16.0) gm/dL Hct (34.0-46.0) % RDW (11.5-15.5) % Lymphocytes # (Manual) (1.0-4.8) k/uL Metamyelocytes # (Man) (0) k/uL Myelocytes # (Manual) (0) k/uL ABG pH 7.16 L* (7.35-7.45) ABG pCO2 66 H (35-45) mmHg ABG pO2 69 L (83-108) mmHg ABG Total CO2 26 H (19-24) mmol/L ABG O2 Saturation 87.9 L (94-97) % Sodium (137-145) mmol/L Carbon Dioxide (22-30) mmol/L BUN (7-17) mg/dL Glucose (74-99) mg/dL POC Glucose (mg/dL) 202 H 165 H (75-99) mg/dL Total Protein (6.3-8.2) g/dL Albumin (3.5-5.0) g/dL 10/11/20 10/12/20 10/12/20 Range/Units 20:50 00:25 03:30 RBC 2.86 L (3.80-5.40) m/uL Hgb 8.1 L (11.4-16.0) gm/dL Hct 25.9 L (34.0-46.0) % RDW 16.6 H (11.5-15.5) % Lymphocytes # (Manual) 0.73 L (1.0-4.8) k/uL Metamyelocytes # (Man) 1.46 H (0) k/uL Myelocytes # (Manual) 0.52 H (0) k/uL ABG pH (7.35-7.45) ABG pCO2 (35-45) mmHg ABG pO2 (83-108) mmHg ABG Total CO2 (19-24) mmol/L ABG O2 Saturation (94-97) % Sodium (137-145) mmol/L Carbon Dioxide (22-30) mmol/L BUN (7-17) mg/dL Glucose (74-99) mg/dL POC Glucose (mg/dL) 127 H 124 H (75-99) mg/dL Total Protein (6.3-8.2) g/dL Albumin (3.5-5.0) g/dL 10/12/20 10/12/20 10/12/20 Range/Units 03:45 04:46 06:33 RBC (3.80-5.40) m/uL Hgb (11.4-16.0) gm/dL Hct (34.0-46.0) % RDW (11.5-15.5) % Lymphocytes # (Manual) (1.0-4.8) k/uL Metamyelocytes # (Man) (0) k/uL Myelocytes # (Manual) (0) k/uL ABG pH 7.17 L* (7.35-7.45) ABG pCO2 60 H (35-45) mmHg ABG pO2 54 L* (83-108) mmHg ABG Total CO2 (19-24) mmol/L ABG O2 Saturation 80.7 L (94-97) % Sodium 133 L (137-145) mmol/L Carbon Dioxide 19 L (22-30) mmol/L BUN 21 H (7-17) mg/dL Glucose 121 H (74-99) mg/dL POC Glucose (mg/dL) 143 H (75-99) mg/dL Total Protein 5.3 L (6.3-8.2) g/dL Albumin 2.4 L (3.5-5.0) g/dL Assessment and Plan Plan: Assessment: 1. Acute kidney injury secondary to ATN secondary to COVID-19 and DKA. Baseline creatinine is near 1. Started on hemodialysis on September 14. Has p-cath. Oliguric. No hydronephrosis noted on kidney ultrasound. 2. DKA s/p insulin drip and IV fluids. 3. Acute hypoxic respiratory failure secondary to COVID-19 pneumonia. Status post tracheostomy this admission. 4. Metabolic acidosis secondary to acute kidney injury and DKA s/p bicarb drip. Maintained on oral bicarbonate. Expect further improvement postdialysis. 5. Hyponatremia, hypervolemic. Stable. Blood sugar stable. 6. Hyperphosphatemia secondary to acute kidney injury. Maintained on Renvela. 7. Anemia of chronic illness and kidney disease. Maintained on Aranesp. Iron deficiency noted - s/p iv iron. 8. Fluid overload. Plan: Continue with daily dialysis mostly for ultrafiltration. Maintain tube feeds. Avoid nephrotoxins. Continue to monitor renal function and urine output. Monitor for renal recovery. Wean FiO2. Recheck phosphorus level.
--- NOTE | 2020-10-12 11:16 | P.PN ---
Subjective Progress Note Date: 10/12/20 CHIEF COMPLAINT: COVID-19 pneumonia HISTORY OF PRESENT ILLNESS: Patient is in the ICU for COVID-19 pneumonia and respiratory failure. She is status post tracheostomy and PEG tube placement with Dr. Hollis. Patient is tolerating tube feedings. Her to feedings are at goal at 30 mL per hour. Patient remains on mechanical ventilation. Patient has been getting daily hemodialysis treatments. She was placed in prone position yesterday. She is can be placed in prone's position again today. Afebrile WBC 10.4 Patient seen and examined with Dr. hollis PHYSICAL EXAM: VITAL SIGNS: Reviewed. GENERAL: Well-developed in no acute distress. HEENT: No sclera icterus. Extraocular movements grossly intact. Moist buccal mucosa. Head is atraumatic, normocephalic. Tracheostomy site clean dry and int act. No evidence of bleeding ABDOMEN: Soft. Nondistended. Nontender. PEG tube site clean dry and intact NEUROLOGIC: Sedated ASSESSMENT: 1. Acute hypoxic respiratory failure with prolonged mechanical ventilation due to COVID-19 pneumonia status post tracheostomy placement 2. Severe protein calorie malnutrition status post PEG tube placement PLAN: -Continue tube feedings -Continue supportive care -Continue ICU management Physician Role Player note has been reviewed by physician. Signing provider agrees with the documented findings, assessment, and plan of care. Objective - Vital Signs Vital signs: Vital Signs Temp 97.2 F L 10/12/20 10:55 Pulse 122 H 10/12/20 10:55 Resp 32 H 10/12/20 10:55 BP 102/65 10/12/20 10:55 Pulse Ox 94 L 10/12/20 09:00 Intake & Output 10/11/20 10/12/20 10/12/20 18:59 06:59 18:59 Intake Total 0998.127 4131.421 663.037 Output Total 4300 4000 Balance -2330.799 2019.421 -3336.963 Weight 114.4 kg 117.1 kg Intake: IV 253 299 46 0.9 Normal Saline @ KVO 220 260 40 0.9 Normal Saline 33 39 6 Pressure Bag Intake, IV Titration 0573.596 3018.421 567.037 Amount Cisatracurium 200 mg In 379.717 563.391 151.276 Sodium Chloride 0.9% 180 ml @ 1 MCG/KG/MIN 7.308 mls/hr IV .Q24H [facility] Rx#: [id number] fentaNYL (PF) 2,500 mcg 497.644 430.430 227.561 In Sodium Chloride 0.9% 200 ml @ Per Protocol IV .Q0M [facility] Rx#:[id number] propofoL 1,000 mg In 368.84 547.6 188.2 Empty Bag 1 bag @ Per Protocol IV .Q0M [facility] Rx#: [id number] Oral 20 Tube Feeding 60 120 20 Blood Product 30 Hemodialysis 300 Other 60 60 30 Output: Urine 0 Hemodialysis 4300 4000 Other: Voiding Method Incontinent ABP, PAP, CO, CI - Last Documented Arterial Blood Pressure 126/71 - Labs CBC & Chem 7: 10/12/20 03:30 10/12/20 03:45 Labs: Abnormal Lab Results - Last 24 Hours (Table) 10/11/20 10/11/20 10/11/20 Range/Units 11:33 13:22 17:30 RBC (3.80-5.40) m/uL Hgb (11.4-16.0) gm/dL Hct (34.0-46.0) % RDW (11.5-15.5) % Lymphocytes # (Manual) (1.0-4.8) k/uL Metamyelocytes # (Man) (0) k/uL Myelocytes # (Manual) (0) k/uL ABG pH 7.16 L* (7.35-7.45) ABG pCO2 66 H (35-45) mmHg ABG pO2 69 L (83-108) mmHg ABG Total CO2 26 H (19-24) mmol/L ABG O2 Saturation 87.9 L (94-97) % Sodium (137-145) mmol/L Carbon Dioxide (22-30) mmol/L BUN (7-17) mg/dL Glucose (74-99) mg/dL POC Glucose (mg/dL) 202 H 165 H (75-99) mg/dL Total Protein (6.3-8.2) g/dL Albumin (3.5-5.0) g/dL 10/11/20 10/12/20 10/12/20 Range/Units 20:50 00:25 03:30 RBC 2.86 L (3.80-5.40) m/uL Hgb 8.1 L (11.4-16.0) gm/dL Hct 25.9 L (34.0-46.0) % RDW 16.6 H (11.5-15.5) % Lymphocytes # (Manual) 0.73 L (1.0-4.8) k/uL Metamyelocytes # (Man) 1.46 H (0) k/uL Myelocytes # (Manual) 0.52 H (0) k/uL ABG pH (7.35-7.45) ABG pCO2 (35-45) mmHg ABG pO2 (83-108) mmHg ABG Total CO2 (19-24) mmol/L ABG O2 Saturation (94-97) % Sodium (137-145) mmol/L Carbon Dioxide (22-30) mmol/L BUN (7-17) mg/dL Glucose (74-99) mg/dL POC Glucose (mg/dL) 127 H 124 H (75-99) mg/dL Total Protein (6.3-8.2) g/dL Albumin (3.5-5.0) g/dL 10/12/20 10/12/20 10/12/20 Range/Units 03:45 04:46 06:33 RBC (3.80-5.40) m/uL Hgb (11.4-16.0) gm/dL Hct (34.0-46.0) % RDW (11.5-15.5) % Lymphocytes # (Manual) (1.0-4.8) k/uL Metamyelocytes # (Man) (0) k/uL Myelocytes # (Manual) (0) k/uL ABG pH 7.17 L* (7.35-7.45) ABG pCO2 60 H (35-45) mmHg ABG pO2 54 L* (83-108) mmHg ABG Total CO2 (19-24) mmol/L ABG O2 Saturation 80.7 L (94-97) % Sodium 133 L (137-145) mmol/L Carbon Dioxide 19 L (22-30) mmol/L BUN 21 H (7-17) mg/dL Glucose 121 H (74-99) mg/dL POC Glucose (mg/dL) 143 H (75-99) mg/dL Total Protein 5.3 L (6.3-8.2) g/dL Albumin 2.4 L (3.5-5.0) g/dL
--- NOTE | 2020-10-12 11:35 | P.PN ---
Subjective Progress Note Date: 10/12/20 HISTORY OF PRESENT ILLNESS 35-year-old female patient of Dr. Arroyo with past medical history of type 2 diabetes comes in with acute shortness of breath associated with high light s ugars. Patient on admission was found to have a fever of 101.5 pulse rate 125 respiratory rate 20. Blood pressure 132/106. On chest x-ray obtained in the ER suggestive of bilateral infiltrates concerning for call with pneumonia. COVID PCR was positive. On admissions patient had an ABG with a pH of 7.14 pCO2 of 20, pO2 of 59, bicarb of 7. Patient's blood sugar on admission was 424 on assessment today patient's blood work patient had a sodium 135 potassium 5.4 chloride 123 bicarb less than 5 and creatinine 0.73. D-dimer was elevated on admission patient 9 28 patient given 1 L of IV fluids followed by normal saline running at 200 mL/h. Patient was positive for acetone on admission. She will anion gap closed and was switched to D5NS. Insulin drip was continued during the night and was switched to patient's home medication this morning. One dose of remdesiver was ordered. Apparently around noon, A- team was called on the patient secondary to hypoxia patient's oxygen saturation dropped to the 70s and 80s on 100% nonrebreather. Patient was switched to BiPAP on 18/12 and is doing better o FiO2 of 80%. ABG was obtained and ph was 7. 14 pCO2 of 28 bicarb of 7 pO2 of 17. Patient noted to have uncompensated metabolic acidosis with compensated respiratory alkalosis. Stat dose of 1 amp bicarb was given and followed by sodium bicarbonate drip. Insulin drip restarted. Patient's initiated on dexamethasone 6 mg IV twice a day. Potassium phosphate ordered as phosphorus is low. Patient's repeat blood gases suggest a pH of 7.25, CO2 32 pO2 of 72 bicarb 14. I will not normal saline at 100 mL/h as patient's anion gap has increased. Patient given 1 dose of 2 mg of morphine with improvement in respiratory rate. One dose of Ativan 0.5 mg was given. Xanax 0.25 twice a day along with Ativan 0.5 IV every 6 hours ordered for the patient. Vitals were evaluated patient pulse 129 [id number]. She was moved to the ICU. Precedex drip was initiated. Lopressor was initiated at 25 twice a day. Metoprolol tartrate 5 mg IV every 6 hours. Systolic blood pressure more than 160. Started chest x-ray was obtained and suggest stable bilateral consolidation suggestive of COVID-19 pneumonia. 09/12 patient is seen in the ICU is currently mechanically ventilated and sedated on vent settings of respiratory rate 36, tidal volume 375 FiO2 80% PEEP of 18.. Vital signs reviewed patient had a temp of 100.4 pulse 150 respiratory rate 36 oxygen saturation 95% on 80% on fio2 .'s labs are reviewed which patient had a d-dimer 1.84 that is increased to 14.3. Arterial Blood gas suggest ph 7.35, CO2 40, po2 62, . Her BMP suggest a sodium 135 potassium 3.7 chloride 112 bicarb 21 creatinine 1.57 for calcitonin is 3.5 CRP is increased from 8.78.2 LDH is increased to 2614. Patient remains on Pneumovax, propofol drip. Lovenox increased to 50 subcu twice a day. Patient received 2 L of IV fluids. Continue IV fluids at 100 mL/h. Bicarb drip discontinued patient initiated on Zosyn 3.375 every 8 hours. Continue insulin drip at 4 units per hour. Patient is currently in prone positioning 09/13: Patient evaluated in the ICU remains on Ventilation continues to be sedated, in prone position. Vent settings are respiratory rate 36, tidal vital 375, FiO2 70% PEEP of 18. ABG shows pO2 of 82, PCO2 of 39, pH is 7.19. Latest labs show WBC 11.1, hemoglobin 13.2, d-dimer still pending, but yesterday was up to 14.3. Creatinine up to 3.4, BUN 24 sodium 137, potassium 4.0. Patient's urine output has been low, nephrology on consult. Bicarb drip increased to 100 miles an hour, receiving another liter of normal saline, she did have a ultrasound that showed unremarkable bilateral kidneys. Repeat chest x-ray showed bilateral lung infiltrates that are stable. Anion gap has closed, will start Lantus 10 units at at bedtime Novolog every 6 hours. 09/14: Patient is seen in the ICU, still currently mechanically ventilated and sedated. She continues in the prone position. Her oxygen quickly drops if she is not in prone. Patient's kidney function has worsened. Laboratory values show creatinine of 4.87, BUN 33, LDH 2191, C-reactive protein 2.7. ABG shows pH 7.32, pO2 of 60, pCO2 43. Patient is making almost no urine overnight. Nephrology is following patient continues on cefepime for urinary tract infection, culture is still pending. Vascular has been consulted for placement of temporary hemodialysis catheter for plans for dialysis. 09/15: Patient evaluated in the ICU, continues to be mechanically ventilated and sedated on assist control ventilation rate of 36, tidal volume 375, FiO2 100% and PEEP of 18. ABG today shows pO2 58, pCO2 of 45, and pH 7.35. She continues on tube feedings. Yesterday patient underwent ultrasound-guided right internal jugular non-tunneled hemodialysis catheter placement. Patient underwent hemodialysis treatment last night and plans have another hemodialysis treatment today. She continues to make almost no urine. She continues on cefepime for antibiotic coverage, and continues on Decadron and Lovenox. 09/16: Patient seen on follow-up remains in the ICU mechanically ventilated and sedated. She continues on assist control rate of 36, tidal volume 375, FiO2 100% and PEEP of 20. PEEP had to be increased due to patient had to be in supine position for dialysis, will go back to prone position once dialysis is complete. ABG shows pH 7.32, pCO2 49, PaO2 61. Laboratory values showed WBC 11.2, hemoglobin 11, sodium 134, creatinine 4.44, BUN 38. Urine culture shows no growth, blood cultures show no growth to date. Repeat chest x-ray shows bilateral pleural effusions, correlate for ARDS, pulmonary edema, diffuse pneumonia, findings are stable from last exam. Patient does not require any pressors, blood pressure 133/57, heart rate 78. 5/16: Patient was evaluated in the ICU today for follow-up. She continues to be intubated and on mechanical ventilation. Current vent settings are tidal volume 375, FiO2 100% and PEEP of 20. ABG shows pH 7.37, pCO2 40, pO2 102. She continues with intermittent prone positioning. Patient continues to have almost no urine output, maintained on dialysis. Patient received dialysis yesterday without complication. Laboratory values revealed WBC 10.3, hemoglobin 10.4, sodium 132, potassium 3.1, BUN 33, creatinine 4.29, LDH 1913, C-reactive protein 1.3. Urine and sputum cultures are negative, blood cultures show no growth to date. Consult placed to dietary to start TPN[ ] 09/18: She remains in the intensive care unit intubated and on mechanical ventilation with tidal volume 375, FiO2 60 and PEEP of 20. Patient is being prone to daily at approximately 16 hours per day. Pulmonary medicine has added in Dr. Zhang to do PEG tube and trach today. Patient is not on vasopressors. Repeat blood work reveals WBC 12.6, hemoglobin 9.8, platelet count 212. Sodium 133, potassium 3.2, chloride 102, CO2 21, BUN 35 and creatinine 4.12. Blood sugar 126. Patient underwent hemodialysis yesterday with removal of 2 L and is scheduled again today with goal of 2-3 L and is scheduled again tomorrow. 09/19: She is scheduled for hemodialysis today and is off fentanyl temporarily. Patient is status post trach and PEG tube yesterday. And she remains on mechanical ventilation. Pulse ox 93-95%. She has been afebrile, heart rate 64, respiratory rate 36, blood pressure 115/50. Fentanyl is off to improve blood pressure for hemodialysis which is scheduled for today. Contacted vascular surgery about permanent hemodialysis catheter. Repeat blood work reveals WBC 14.3, hemoglobin 9.6, platelet count 200. D-dimer 6.48. LDH 1686. C-reactive protein 1.1. BUN 34 creatinine 3.81. Sodium 130, potassium 3.5, chloride 101, CO2 18. Blood sugars running between 101 198. Plan is to wean off Pneumovax today. Patient remains on insulin drip. Repeat chest x-ray reveals bilateral multifocal confluent opacities consistent with COVID-19. Some improved aeratio n periphery of the left lung and worsening opacities throughout the right lung. 09/20: She remains in the intensive care unit on mechanical ventilation. She has been afebrile, heart rate 65, respiratory rate 37, blood pressure 121/70, pulse ox 91-99%. Repeat blood work reveals WBC 14.5, hemoglobin 9.1, platelet count 216. D-dimer 6.13. Sodium 133, potassium 3.1, chloride 102, CO2 18, BUN 35 and creatinine 4.27. Blood sugars running between 128 and 143. LDH 1717. C- reactive protein 1.7. Patient remains on insulin drip which will be transitioned to NovoLog scale every 6 hours. Patient is scheduled for permanent hemodialysis catheter placement today with vascular surgery. Repeat chest x-ray reveals stable diffuse bilateral interstitial and airspace disease. Possible small right effusion. His work is following for [facility]. Do not anticipate discharge until next week. 09/21: Patient is undergoing hemodialysis. She remains on mechanical ventilation with tidal volume 375, FiO2 down to 45 and PEEP was decreased to 15. Patient is continued on propofol, fentanyl drips. She is on tube feedings at goal. Patient was taken off insulin drip yesterday and on scale only but blood sugars are running in the 200s, Levemir scheduled at bedtime will be added. Other blood work reveals WBC 13.3, hemoglobin 8.7, platelet count 192. Sodium 137, potassium 3.6, chloride 107, CO2 18, BUN 34 and creatinine 4.21. Repeat chest x-ray is stable. 09/22: She remains in the intensive care on mechanical ventilation with tidal volume 375, FiO2 of 50 and PEEP of 10. Pulse ox is running 96%. She is afebrile, heart rate in the 50s, respiratory rate 36, blood pressure 100/64. Repeat blood work reveals WBC 16.5, hemoglobin 8.9, platelet count 213. Sodium 134, potassium 3.7, chloride 103, CO2 21, BUN 34 and creatinine 3.89. Blood sugars running in the 200s to 324. Levemir increased to 16 units at bedtime and continue NovoLog scale every 6 hours. Patient is on tube feedings at goal. She has a Haley catheter in with a scant amount of dark/brown urine. Fecal management system is in place. Repeat chest x-ray reveals diffuse bilateral airspace infiltrates persist unchanged. Patient is scheduled for hemodialysis tomorrow morning on Friday. 09/23: Patient remains on mechanical ventilation with tidal volume 3.75, FiO2 50 and PEEP of 10. library monitor sinus rhythm. She has no urine output. Fecal management system is in place. She is undergoing dialysis at this time with plan for removal of 2-1/2 L. She has been afebrile, heart rate in the 50s, respiratory rate 36, blood pressure 108/76 and pulse ox 89%. WBC 13.6, hemoglobin 9.1, platelet count 194. Sodium 136, potassium 3.0 and was replaced, chloride 106, CO2 21, BUN 49 creatinine 5.31. Blood sugars are running between 182 and this morning 194. Patient was still in the 200s and 300s. Levemir last evening was increased to 16 units. Patient remains on propofol and fentanyl drips. Lovenox was increased to 60 mg twice daily. 09/24: PEEP was increased today to 20, tidal volume is at 375 and FiO2 of 50%. Patient has been afebrile. She has been started on levo fed. Repeat chest x- ray reveals bilateral multifocal confluent opacities consistent with Covid 19 or ARDS redemonstrated. Nephrology will plan dialysis for tomorrow for 3 L. Patient remains on propofol fentanyl and Nimbex. WBC 12.5, hemoglobin 9.8, platelet count 161. D-dimer 13.3. Sodium 132, potassium 3.4, chloride 102, CO2 20, BUN 48 and creatinine 4.67. Blood sugars extremely elevated to 96-409. LDH 2217. 09/25: Patient remains in the intensive care unit on mechanical ventilation with tidal volume 375, FiO2 50 and PEEP of 20. Patient is afebrile, heart rate 61, respiratory rate 36, blood pressure 102/56, pulse ox 97%. Repeat blood work reveals WBC 9.3, hemoglobin 8.5 and platelet count 171. Sodium 130, potassium 3.7, chloride 100, CO2 20, BUN 61 creatinine 5.65. Blood sugars have been elev ated up to 455. Levemir increased to 20 units twice daily, NovoLog 5 units every 6 hours and continue NovoLog scale. Patient is scheduled for hemodialysis today. Repeat chest x-ray reveals bilateral multifocal and confluent opacities. Decadron and Lovenox dosing change by pulmonary. Patient is off norepinephrine. 09/26: Patient remains in the intensive care unit on mechanical ventilation with tidal volume 375, FiO2 50 and PEEP of 15. She has been afebrile, heart rate 91, blood pressure 114/68, pulse ox 99%. library monitor sinus rhythm. 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 Sodium 134, potassium 3.6, chloride 102, CO2 22, BUN 41 creatinine 4.21. Patient has improved blood sugars this morning running 150s and 160s. Diabetic medications were adjusted yesterday. Patient is awake and alert and interacting. Yesterday, patient had PICC line inserted by interventional radiology. Repeat chest x-ray reveals diffuse airspace infiltrates in both lung ann appear to progress slightly in the interval. 09/27: Patient remains in intensive care unit on mechanical ventilation with improvement of settings with tidal volume 375, FiO2 decreased to 40 and PEEP decreased to 10. Patient is on hemodialysis every other day and plan to remove 3 L today. Patient is more awake and alert. She is slow to respond but is able to follow simple commands. Blood sugars are running between 84 and 123. Repeat blood work reveals WBC 7.1, hemoglobin 8.1, platelets 152. Sodium 135, potassium 3.6, chloride 103, CO2 21, BUN 53 and creatinine 5.88. Repeat chest x-ray revealed cardiomegaly and pulmonary edema. Patient is on tube feedings:. Patient is not require vasopressors and is off sedation. Fecal management system remains in place for brown liquid stool. C. difficile was negative. 09/28: Patient remains on mechanical ventilation with tidal volume 375, FiO2 increased to 80 and PEEP increased to 18. Patient had a rough night was very anxious, no pain. Xanax 0.25 mg 3 times daily was added. There is concern for pulmonary embolism for which patient was started on heparin drip, she is unable to undergo CAT scan. Venous Doppler bilateral lower extremities was nondiagnostic due to extensive edema in obese patient but minimal imaging of the popliteal veins does show flow. Repeat echocardiogram has been ordered. Cefepime has also been ordered at 1 g IV piggyback every 24 hours as well as vancomycin, pharmacy dosing. Patient is back on fentanyl drip, propofol drip and norepinephrine. Blood sugars are elevated and insulin Levemir will be i ncreased to 25 mg twice daily. Ferrlecit infusion has been ordered by nephrology for 4 days. Patient is undergoing hemodialysis today.temperature max 100.2, heart rate 134, respiratory rate 34, blood pressure 120/65, pulse ox 94%. library monitor is sinus tachycardia. Repeat blood work reveals WBC 16.9, hemoglobin 9.7, platelet count 216. D-dimer 8.81. Sodium 134, potassium 3.8, chloride 99, CO2 25, BUN 43 and creatinine 5.36. Blood sugars in the 200s. AST 40. 09/29 Patient had declined more last 48 hours require more sedation, patient is doing hemodialysis, respiratory failure is quite bit worse this time. Patient was inquired the pain is well back on fentanyl drip. Her vent set up with PEEP is limited but higher. No new finding on culture and her chest x-ray continues shows diffuse infiltrate persistent although there is a moderate interval improvement. 09/30 patient's was seen and evaluated. PEEP was reduced to 11 as patient is maintaining good saturation at the current vent settings. 10/01 patient was seen at bedside. She is currently on assist control rate of 28 white tidal volume 350 FiO2 50% and PEEP of 10 which has been reduced by pulmonary as patient name cleaning her oxygen saturation. Arm blood gas was obtained with a pH of 7.35 pCO2 37 pO2 of 63. She remains hemodynamically stable with no need for pressors. Labs were reviewed patient's BUN is 29 crea tinine 3.93 glucose 122 albumin 2.2 sodium 131 chloride 19 hemoglobin is downtrending with a Hb of 7.3 no leukocytosis 7.1. Patient's urine output is minimal at this time. Her rate has increased to 129 and is currently on positive fluid balance even with dialysis. Last dialysis was done yesterday. Continue enteral feeding currently at goal. Antibiotic has been discontinued and continues to remain on DEXA methicillin 4 mg IV daily. 10/02 patient continues to be on trach support with mechanical ventilation. Patient was evaluated by emergency worker and was switched to VC control as patient was noted to be double stacking on and off throughout the night. Respiratory rate continue to 28 tidal volume increased to 400 with a PEEP for Dr. Downey. Patient is maintaining oxygen saturation 91% on the current setting. According to the nurse bedside patient saturation drops significantly or she is moved or her sedation is dropped. Patient is currently on propofol drip, fentanyl drip. She did underwent dialysis today and was able to maintain her low pressure without the need of pressors. Labs reviewed today suggest a WBC of 6.7 hemoglobin of 7.0 and d-dimer 3.9 bicarb 17 BUN 38 creatinine 4.8. LDH is 964. Sodium 1:30 likely secondary to volume overload. Urine sodium and urine osmolality ordered. Patient's glucose this morning is 146. Continue to remain on enteral feeding. Urine output is reduced. Fall catheter will be placed today. Continue to remain on dialysis. 10/03: Patient remains on mechanical ventilation and is back on propofol and fentanyl drips. Patient is currently on VC control with tidal volume 400, FiO2 55 and PEEP of 12. Patient still is not making any urine and is dialysis dependent with next treatment planned for tomorrow with removal of 3-3-1/2 L. PEG tube feedings are at goal. Fecal management system remains in place. At the time of evaluation, patient is off levophed. Repeat chest x-ray reveals stable diffuse bilateral airspace disease correlate for ARDS, pulmonary edema or diffuse pneumonia. Temperature max last evening was 101. Temperature currently 99, heart rate 106, respiratory rate 32, blood pressure 101/50, pulse ox 86%. Repeat blood work reveals WBC 6, hemoglobin 7.4, platelet count 160. D-dimer 4.05. Sodium 133, potassium 3.5, chloride 100, CO2 23, BUN 31 creatinine 3.8. Blood sugars are running between 100 and 170. Ferritin 1514. Liver function test normal. LDH 1016, C-reactive protein 13.6. Prognosis remains guarded. 10/04: Patient remains intubated on mechanical ventilation with tidal volume 400, FiO2 65, PEEP of 14. Patient continues to run fevers and repeat blood culture and urine and urine culture ordered for today. Haley catheter has been removed this patient has no significant urine output at about 20 mL per shift. BladderScan is monitored for greater than 300 and the patient is straight cathed. Hemoglobin is 6.8 and she has been ordered 41 unit of packed RBCs today. She is currently on propofol and fentanyl drips. She is scheduled for hemodialysis today. WBC 4.5, hemoglobin 6.8, platelet count 151. D-dimer 3.28. Sodium 132, potassium 4.1, chloride 100, CO2 22, BUN 37 creatinine 4.74. Blood sugars running between 97 and 110. Ferritin 1801. LDH 859. C-reactive protein 14.4. Chest x-ray reveals correlate for pneumonia, edema, ARDS. Prognosis remains guarded. 10/05: Patient remains in intensive care unit currently on mechanical ventilation with tidal volume 400, FiO2 was increased to 100 and PEEP is at 14. She continues to run fevers which have worsened with temperature max 103.1. She has been tachycardic in the 130s, blood pressure is marginal but not on vasopressors. Pulse ox currently 92%. Repeat blood work reveals WBC 5.5, hemoglobin 7.6, platelet count 190. D-dimer 2.7, ferritin 1770, LDH 932, C- reactive protein 21.4. Blood sugars are running between 100 1669. Electrolytes are normal. BUN 27 and creatinine 3.79. Pancultures were done yesterday including a straight cath for urine culture, sputum culture and blood culture. Arterial line was removed as well as midline. She is currently on propofol, fen tanyl and started on Nimbex today. 10/06: Patient remains in the intensive care unit. Today patient in prone position and remains on mechanical ventilation with tidal volume 350, FiO2 65 and PEEP of 14. Her last documented fever was yesterday at 2 PM. Heart rate is in the 120s, respiratory rate 32, pulse ox 88-92%. CBC is unremarkable. Electrolytes are normal. BUN 30 creatinine 2.93. Blood sugars are running between 135 and 164. Cultures from October 04: Blood culture no growth, sputum culture finalized, urine culture finalized. Catheter tip culture is in process. Repeat chest x-ray shows bilateral interstitial infiltrates. Patient is on tube feedings of Nepro at goal of 30 ML's per hour. Patient underwent dialysis yesterday and is scheduled for repeat dialysis today. 10/07: Patient maintains in the intensive care unit intubated and on mechanical ventilation. She is receiving hemodialysis this morning has been every day. Plan is to remove 2-1/2 L today. Vent settings have changed today with tidal volume 350, FiO2 was increased to 100% and PEEP remains at 14. She has been continued on Nimbex, fentanyl, norepinephrine and propofol. Plan is to prone position patient following dialysis. Repeat chest x-ray reveals worsening interstitial infiltrates. BUN is 26 and creatinine 2.59. LDH 955, C-reactive protein 22.1. Prognosis remains poor. 10/08: Patient remains in intensive care unit intubated and on mechanical ventilation with tidal volume 350, FiO2 60, PEEP of 14. She is pronating today. She is scheduled for hemodialysis on a daily basis. She has been afebrile, heart rate 112, respiratory rate 36, blood pressure 161/88, pulse ox 93%. Repeat blood work reveals WBC 9.9, hemoglobin 9.1, platelet count 320. Sodium 133, potassium 5.3, chloride 100, CO2 20, BUN 29 creatinine 2.44. Blood sugar running between 102 and 139. LDH 1026, C-reactive protein 19.7. 10/09: Patient is undergoing dialysis this morning. She continues to be intubated and on mechanical ventilation with tidal volume 350, 270 and PEEP of 14. Patient is also on propofol, Nimbex, norepinephrine and fentanyl drips. Repeat chest x-ray reveals persistent bilateral multifocal and confluent opacities consistent with Covid 19. She is afebrile, heart rate 116, respiratory rate 36, blood pressure 120/65, pulse ox 91%. Repeat blood work reveals WBC 5.4, hemoglobin 9.2, platelet count 216. D-dimer 2.67, ferritin 2568, LDH 794, C- reactive protein 13.9. Blood sugars have been running 90-104. Creatinine 1.64. She is on daily dialysis treatment. 10/10: She remains in the intensive care unit. She is now out of isolation as a repeat Covid test came back negative. She remains on mechanical ventilation with tidal volume 350, FiO2 70 and PEEP of 14. Patient is also on Nimbex, propofol, norepinephrine, fentanyl drips. She is on PEG tube feedings at goal and tolerating well. Repeat blood work reveals WBC 7.8, hemoglobin 7.5, platelet count 267. Sodium 139, potassium 3.9, chloride 109, CO2 20, BUN 20 creatinine 1.29. Blood sugars are running between 76 and 102. Scheduled Aiyana Log decreased to 3 units. Repeat chest x-ray reveals moderate cardiomegaly and continued pulmonary edema. Slight interval improvement. Patient is continued on daily hemodialysis. 10/11: Patient remains in intensive care unit on mechanical ventilation with tidal volume 325, FiO2 70, PEEP 14. She is currently being prone. She underwent hemodialysis this morning with removal of 4 L of fluid with plan to continue daily treatment. She is currently on Nimbex, fentanyl and propofol. No vasopressor at this time. Fecal management system remains in place. She is on tube feedings currently at hold due to prone positioning. Patient has been afebrile, heart rate 116, respiratory rate 36, blood pressure 100/58, pulse ox 93-96%. Repeat blood work reveals WBC 9.3, hemoglobin 8.1, platelet count 276. Sodium 136, potassium 4.3, chloride 103, CO2 20, BUN 20 creatinine 1.14. Blood sugars running between 133 and 202. 10/12: Patient remains in the intensive care unit. She is undergoing hemodialy sis this morning. She's been afebrile, heart rate in the 120s, respiratory rate 32, blood pressure 102/65. She is not on vasopressors. She is continued on Nimbex, fentanyl and propofol. Vent settings are currently tidal volume 325, FiO2 70, PEEP 14. Total platelet count 273. Sodium 133, potassium 4.7, chloride 100, CO2 19, BUN 21 creatinine 0.91. Blood sugars running between 121 and 143. REVIEW OF SYSTEMS Unable to obtain due to mechanical ventilation. PHYSICAL EXAMINATION Gen: This is is a 35-year-old black female, patient is intubated and on mechanical ventilation, appears to be comfortable. HEENT: Head is atraumatic, normocephalic. Pupils equal, round. Sclerae is anicteric. Tracheostomy midline. NECK: Supple. No JVD. No lymphadenopathy. No thyromegaly. LUNGS: Coarse bilateral rhonchi. No intercostal retractions. HEART: Regular rate and rhythm. No murmur. ABDOMEN: Soft. Bowel sounds are present. No masses. No tenderness. Fecal management system in place. EXTREMITIES: Trace bilateral pedal edema. No calf tenderness. NEUROLOGICAL: Patient is sedated. ASSESSMENT AND PLAN 1. Acute hypoxic respiratory failure secondary to Covid 19 pneumonia and possible bacterial pneumonia. Patient was intubated on September 11. She is status post 1 dose of Remdesivir and 1 dose of Tocilizumab. Continue Ventolin inhaler 4 times daily, Symbicort twice daily, Decadron 4 mg IV daily, Lovenox 30 mg subcu daily, supplements. Status post PEG tube and trach. Isolation precautions at been removed. Patient is being proned daily. 2. Acute diabetic ketoacidosis secondary to Covid 19 pneumonia, uncontrolled with hyperglycemia. Levemir 25 units twice daily, scheduled NovoLog 3 units every 6 hours and NovoLog scale. 3. Metabolic encephalopathy secondary to Covid 19 and DKA. 4. Sepsis and septic shock secondary to Covid 19 pneumonia with multiorgan failure. Continue as in #1. 5. Acute metabolic acidosis secondary to acute DKA, Covid 19 and acute kidney injury. Sodium bicarb 650 mg 3 times daily. 6. Diabetes mellitus type 2 uncontrolled with A1c 13.6. Continue as above. 7. Hypophosphatemia status post replacement. 8. Hyperkalemia secondary to DKA, resolved. 9. Sinus tachycardia secondary to sepsis, volume deficiency. 10. Acute kidney injury secondary to ATN secondary to Covid 19 and DKA. Continue daily hemodialysis. Permanent dialysis catheter placed. 11. Possible acute gram-negative pneumonia versus MRSA pneumonia. Completed course of antibiotics. 12. Hypertension. 13. Morbid obesity with BMI of 53. 14. DVT prophylaxis. Lovenox. 15. GI prophylaxis. Protonix 40 mg IV push daily. CODE STATUS: Full code Prognosis poor. DISCHARGE PLAN [facility] Care Impression and plan of care have been directed as dictated by the signing physician. Kimberly Boswell nurse practitioner acting as scribe for signing physician. Objective - Vital Signs Vital signs: Vital Signs Temp 98.2 F 10/12/20 08:00 Pulse 124 H 10/12/20 09:00 Resp 32 H 10/12/20 09:00 BP 108/75 10/12/20 07:00 Pulse Ox 94 L 10/12/20 09:00 Intake & Output 10/11/20 10/12/20 10/12/20 18:59 06:59 18:59 Intake Total 6828.171 3477.421 663.037 Output Total 4300 Balance -2330.799 2020.421 663.037 Weight 114.4 kg 117.1 kg Intake: IV 253 299 46 0.9 Normal Saline @ KVO 220 260 40 0.9 Normal Saline 33 39 6 Pressure Bag Intake, IV Titration 5681.348 6201.421 567.037 Amount Cisatracurium 200 mg In 379.717 563.391 151.276 Sodium Chloride 0.9% 180 ml @ 1 MCG/KG/MIN 7.308 mls/hr IV .Q24H [facility] Rx#: [id number] fentaNYL (PF) 2,500 mcg 497.644 430.430 227.561 In Sodium Chloride 0.9% 200 ml @ Per Protocol IV .Q0M [facility] Rx#:[id number] propofoL 1,000 mg In 368.84 547.6 188.2 Empty Bag 1 bag @ Per Protocol IV .Q0M [facility] Rx#: [id number] Oral 20 Tube Feeding 60 120 20 Blood Product 30 Hemodialysis 300 Other 60 60 30 Output: Urine 0 Hemodialysis 4300 Other: Voiding Method Incontinent ABP, PAP, CO, CI - Last Documented Arterial Blood Pressure 126/71 - Labs CBC & Chem 7: 10/12/20 03:30 10/12/20 03:45 Labs: Abnormal Lab Results - Last 24 Hours (Table) 10/11/20 10/11/20 10/11/20 Range/Units 11:33 13:22 17:30 RBC (3.80-5.40) m/uL Hgb (11.4-16.0) gm/dL Hct (34.0-46.0) % RDW (11.5-15.5) % Lymphocytes # (Manual) (1.0-4.8) k/uL Metamyelocytes # (Man) (0) k/uL Myelocytes # (Manual) (0) k/uL ABG pH 7.16 L* (7.35-7.45) ABG pCO2 66 H (35-45) mmHg ABG pO2 69 L (83-108) mmHg ABG Total CO2 26 H (19-24) mmol/L ABG O2 Saturation 87.9 L (94-97) % Sodium (137-145) mmol/L Carbon Dioxide (22-30) mmol/L BUN (7-17) mg/dL Glucose (74-99) mg/dL POC Glucose (mg/dL) 202 H 165 H (75-99) mg/dL Total Protein (6.3-8.2) g/dL Albumin (3.5-5.0) g/dL 10/11/20 10/12/20 10/12/20 Range/Units 20:50 00:25 03:30 RBC 2.86 L (3.80-5.40) m/uL Hgb 8.1 L (11.4-16.0) gm/dL Hct 25.9 L (34.0-46.0) % RDW 16.6 H (11.5-15.5) % Lymphocytes # (Manual) 0.73 L (1.0-4.8) k/uL Metamyelocytes # (Man) 1.46 H (0) k/uL Myelocytes # (Manual) 0.52 H (0) k/uL ABG pH (7.35-7.45) ABG pCO2 (35-45) mmHg ABG pO2 (83-108) mmHg ABG Total CO2 (19-24) mmol/L ABG O2 Saturation (94-97) % Sodium (137-145) mmol/L Carbon Dioxide (22-30) mmol/L BUN (7-17) mg/dL Glucose (74-99) mg/dL POC Glucose (mg/dL) 127 H 124 H (75-99) mg/dL Total Protein (6.3-8.2) g/dL Albumin (3.5-5.0) g/dL 10/12/20 10/12/20 10/12/20 Range/Units 03:45 04:46 06:33 RBC (3.80-5.40) m/uL Hgb (11.4-16.0) gm/dL Hct (34.0-46.0) % RDW (11.5-15.5) % Lymphocytes # (Manual) (1.0-4.8) k/uL Metamyelocytes # (Man) (0) k/uL Myelocytes # (Manual) (0) k/uL ABG pH 7.17 L* (7.35-7.45) ABG pCO2 60 H (35-45) mmHg ABG pO2 54 L* (83-108) mmHg ABG Total CO2 (19-24) mmol/L ABG O2 Saturation 80.7 L (94-97) % Sodium 133 L (137-145) mmol/L Carbon Dioxide 19 L (22-30) mmol/L BUN 21 H (7-17) mg/dL Glucose 121 H (74-99) mg/dL POC Glucose (mg/dL) 143 H (75-99) mg/dL Total Protein 5.3 L (6.3-8.2) g/dL Albumin 2.4 L (3.5-5.0) g/dL
[2020-10-12] MEDS: NOREPINEPHRINE 8 MG in SODIUM CHLORIDE 0.9% 250 ML IV SCH (11:44)
[2020-10-12] MEDS: SODIUM CHLORIDE 0.9% 500 ML 500 ML IV SCH (11:44)
[2020-10-12 12:02] LABS: Glucose,Whole Blood 131 mg/dL (75-99)
[2020-10-12 17:52] LABS: Glucose,Whole Blood 115 mg/dL (75-99)
--- NOTE | 2020-10-12 21:08 | CONS ---
CONSULTATION CHIEF COMPLAINT: Called by the nurse to see her left cornea which showed like a dull reflex with a white patch over the cornea. The patient is in ICU, intubated and unconscious. Eye examination: Lids were normal. Cornea, right eye is normal. Left eye shows a superficial punctate keratitis with no ulceration and 2+ conjunctival edema. Pupils were equal and sluggish reaction. Retina deferred. Intra-ocular pressure was 17 mm right eye and 14 mmHg left eye. No iritis or vitreitis noticed. ASSESSMENT: 1. Left punctate keratitis left eye. 2. Left subconjunctival edema. PLAN: This is exposure keratitis or small abrasion during movement of the patient. Advised to apply a tape over the lids to leave the eye shut for 2-3 days. Advised to use Artificial Tears 4 times a day for the left eye and once or twice for the right eye. Thank you for this consultation. MMODL / IJN: [id number] /
[2020-10-12 22:42] LABS: Glucose,Whole Blood 97 mg/dL (75-99)
[2020-10-13 00:43] LABS: Glucose,Whole Blood 92 mg/dL (75-99)
[2020-10-13] MEDS: INSULIN ASPART (NovoLOG) 100 UNIT/ML VIAL SQ SCH ×8 (00:47→19:34)
[2020-10-13] MEDS: ARTIFICIAL TEARS-HYPROMELLOSE DROPS 15 ML BTL BOTH EYES SCH ×6 (00:48→21:06)
[2020-10-13] MEDS: CISATRACURIUM 200 MG in SODIUM CHLORIDE 0.9% 180 ML IV SCH ×4 (01:04→20:12)
[2020-10-13] MEDS: fentaNYL (PF) 2,500 MCG in SODIUM CHLORIDE 0.9% 200 ML IV SCH ×2 (04:05→16:15)
[2020-10-13 04:24] LABS: Anisocytosis Slight; HCT 26.4 % (34.0-46.0); HGB 8.3 gm/dL (11.4-16.0); Hypochromasia Marked; MCH 27.8 pg (25.0-35.0); MCHC 31.3 g/dL (31.0-37.0); Mean Platelet Volume 8.5; Platelet Count 285 k/uL (150-450); Poikilocytosis Slight; RBC 2.97 m/uL (3.80-5.40); RDW 16.8 % (11.5-15.5)
[2020-10-13 04:43] LABS: ALT 12 U/L (4-34); AST 18 U/L (14-36); African American GFR (CKD) >90 (>60 ml/min/1.73 sqM); Albumin 2.4 g/dL (3.5-5.0); Alkaline Phosphatase 110 U/L (38-126); Anion Gap 12 mmol/L; Blood Urea Nitrogen 21 mg/dL (7-17); Calcium 9.3 mg/dL (8.4-10.2); Carbon Dioxide 23 mmol/L (22-30); Chloride 99 mmol/L (98-107); Glucose 80 mg/dL (74-99); Non-African American GFR(CKD) >90 (>60 ml/min/1.73 sqM); Sodium 134 mmol/L (137-145); Total Bilirubin 0.3 mg/dL (0.2-1.3); Total Protein 5.2 g/dL (6.3-8.2)
[2020-10-13 05:37] LABS: ABG Base Excess -1.6 mmol/L; ABG HCO3 25 mmol/L (21-25); ABG Oxygen Saturation 91.6 % (94-97); ABG PCO2 56 mmHg (35-45); ABG PH 7.26 (7.35-7.45); ABG PO2 70 mmHg (83-108); ABG TCO2 27 mmol/L (19-24); Allen Test Performed? Yes
[2020-10-13 05:44] LABS: Band Neutrophils % 21 %; Lymphocytes # (M) 1.14 k/uL (1.0-4.8); Metamyelocytes # (M) 0.14 k/uL (0); Metamyelocytes % 1 %; Monocytes # (M) 0.57 k/uL (0-1.0); Myelocytes # (M) 0.14 k/uL (0); Myelocytes % 1 %; Neutrophils % (M) 62 %; Nucleated Red Blood Cells 1 /100 WBC (0-0); Total Cells Counted 200
[2020-10-13 05:45] LABS: Eosinophils # (M) 0.85 k/uL (0-0.7); WBC 14.2 k/uL (3.8-10.6)
[2020-10-13 05:47] LABS: Polychromasia Present
[2020-10-13 05:55] LABS: Toxic Vacuolation Present
[2020-10-13 06:30] LABS: Glucose,Whole Blood 89 mg/dL (75-99)
--- NOTE | 2020-10-13 06:32 | P.PN ---
Subjective Progress Note Date: 10/13/20 Principal diagnosis: Acute respiratory failure secondary to Covid 19 pneumonia. Patient was reevaluated today on 10/05/2020, remains in the ICU, intubated, mechanically ventilated, patient is doing worse today compared to the last few days, her chest x-ray is worsening, her O2 requirement is rising and she is back on the percent FiO2, I have also increased her PEEP to 16, assist control rate was increased to 52, FiO2 is on the percent. ABG earlier today on 70% FiO2 showed a pO2 of 56 pCO2 of 50 pH of 7.32. She was on assist control rate of 28 tidal volume of 400 FiO2 70% and PEEP of 14. Patient had to be placed on a higher dose of propofol which was increased to 70 fentanyl is at 2 mcg/kg/m, patient will be placed on Nimbex as I'm having difficulty oxygenating the pat ient in spite of high FiO2. She is scheduled to undergo hemodialysis again today, she had 4 L off yesterday. Remains on tube feeds using vital AF at 30 MLS per hour. Patient is tachycardic rate is 129, blood pressure is marginal 86/45, hence may recommend adding norepinephrine. The overall picture clearly showing deterioration in this patient's clinical status, and I have a feeling that this patient will continue to do poorly and she is now maximized on treatment. Again her chest x-ray is showing significant worsening of her infiltrates. Patient was reevaluated today on 10/06/2020, remains in the ICU, intubated and mechanically ventilated, and she is presently in prone position since last night for the next few hours until dialysis which is supposed to start sometime in the next couple of hours. Patient remains on assist control mode of mechanical ventilation, it is volume control with volume of 350 rate of 3 to FiO2 65%. 14. Her ABG showed a pO2 of 68 pCO2 of 52 pH of 7.28. Patient remains on propofol at 75 fentanyl at 3 mcg/kg/h she is also on norepinephrine at 0.02 and Nimbex at 3 mcg/kg/m. Patient is scheduled to have hemodialysis today. Chest x-ray continues to show evidence of bilateral interstitial infiltrates. Patient is on enteral feeding in the form of Nepro at 30/30. Patient has been proned now for the last 17 hours. Electrolytes are normal however her BUN is 30 creatinine 2.93. Blood sugar is 147 WBC count is 5.1 hemoglobin is 11.4. Patient remains on the COVID-19 cocktail. Remains on albuterol, Symbicort, Decadron 4 mg IV push daily, Lovenox 30 mg subcu daily. Insulin protocol. Her tonic 40 mg IV push daily. Off antibiotics. Patient was reevaluated today on 10/07/2020, remains in the ICU, intubated and mechanically ventilated, presently receiving hemodialysis. She is on assist control rate of 32, tidal volume of 350, FiO2 is up to on the percent today, and PEEP of 14. Higher PEEP did not seem to help much, hence I kept her on a PEEP of 14. ABG today showed a pO2 of 63 pCO2 53 pH of 7.25. A shunt is on Nimbex at 4 mcg/kg/m, fentanyl 3 mcg/kg/h, norepinephrine at 0.07 mcg/kg/m, propofol at 75 mcg/kg/m. Again the patient is receiving hemodialysis, and I have instructed the nurses today to go back into prone position after she is done with dialysis. Chest x-ray continues to show worsening interstitial infiltrates and ARDS pic ture. Labs were all reviewed. Her medications were all reviewed today. Basic metabolic profile is normal BUN is 26 creatinine 2.59. LDH is 955 and C- reactive protein is 22.1. Not much of a change in the last few days. Patient was reevaluated today on 10/08/2020, remains in the ICU, intubated and mechanically ventilated, patient is presently in prone position her ABG this morning showed significant improvement in her oxygenation, however continues to have a combined metabolic and respiratory acidosis. She is now on assist control of 350 rate of 36 FiO2 down to 60% PEEP at 14. ABG on 100% showed a pO2 of 209 pCO2 of 59 pH of 7.15. Her assist control rate was increased to 36. Kept her on the same tidal volume of 350. 2 A of bicarb were given. Patient is also on bicarb drip. Patient remains on propofol at 75 mcg/kg/m, she is on Nimbex at 4 mcg/kg/m, and norepinephrine at 0.01 mcg/kg/m. Patient is also on fentanyl at 3 mcg/kg per hour. During my evaluation, the patient was in prone position, however should be placed back in supine position once dialysis is ready and the patient will be dialyzed again today. Chest x-ray from yesterday continues to show evidence of interstitial edema and ARDS. No chest x-ray has been done yet today because the patient was in prone position. Patient remains on Decadron, remains on Lovenox, she is off antibiotics for now. CBC showed WBC 9.9 hemoglobin is 9.1. Hematocrit is 28.7. Electrodes are normal. BUN is 29 and creatinine 2.44. Bicarb is 20. LDH is up a bit 1026, C-reactive protein is about the same at 19.7. Progress note dated 10/09/2020. This is a 35-year-old black female with history of acute COVID 19 infection, with acute hypoxemic respiratory failure. She was admitted way back on September 10. Because of failure to wean from mechanical ventilation, she underwent tracheostomy and PEG tube placement on September 18. Currently remains on the ventilator. She is on the VC + (PRVC) modality, with a targeted tidal volume 350 and inspiratory time of 0.9 seconds. Her rate is set at 36. FiO2 70%, and PEEP of 14. On those settings, her arterial blood gases show a PaO2 of 72, pCO2 47, and pH 7.23. Currently, the patient's getting daily hemodialysis. Her drips including propofol at 75 mcg/kg/m, Nimbex at 3.5 mcg/kg/m, with [id number] monitoring, fentanyl at 3 g kilogram per hour, norepinephrine at 7 mcg/m, saline at 20 mL an hour, and vital 1.2 at 10 mL an hour, which is goal. White count 5.4, hemoglobin 9.2, hematocrit 28.8, and platelet count 217,000. Sodium 137, potassium 4.2, chlorides 108, CO2 19, anion gap 10, BUN 22, and creatinine 1.64. The patient's chest x-ray is consistent with bilateral infilt rates, and is essentially unchanged, and consistent with a diagnosis of coronavirus pneumonia. Progress note dated 10/10/2020. 35-year-old black female, with a history of COVID 19 infection and acute hypoxemic respiratory failure. She was admitted way back on September 10. Because of failure to wean from mechanical ventilation, she underwent tracheostomy and PEG tube placement on September 18. She remains on the mechanical ventilator. She is on the pressure regulated volume control modality. Her targeted tidal volume is 350 mL, and her inspiratory time 0.9 seconds. The patient's on 70% FiO2, PEEP o f 14, with a rate of 36. The patient is receiving Nimbex at 4.5 mcg/kg/m, propofol at 65 mcg/kg/m, norepinephrine at 3.5 mcg/m, fentanyl at 2.5 mcg/kg/h, and vital AF 1.2 at 10 mL an hour which is goal. The patient's blood gases from this morning show a PaO2 of 79, 5, and a pH is 7.29. Today's chest x-ray is currently still pending. Overnight, there've been no major changes in her condition. White count 7.8, hemoglobin 7.5, hematocrit 23.1, and platelet count 267,000. Sodium 139, potassium 3.9, chlorides 109, CO2 20, anion gap 10, BUN 20, with creatinine 1.29. Progress note dated 10/11/2020. 35-year-old black female with a history of COVID 19 infection and acute hypoxemic respiratory failure. She was admitted back on September 10. Because of failure to wean from mechanical ventilation, she underwent tracheostomy and PEG tube placement on September 18. She remains on the mechanical ventilator to this day. Currently, she is on pressure regulated [place] control, with a targeted tidal volume of 350, inspiratory time of 0.9 seconds, FiO2 70%, PEEP of 14, and a rate of 36. Her blood gases show a PaO2 of 74, pCO2 46, pH 7.28. In an attempt to reduce the FiO2, I was going to go up on the PEEP, but I was reminded that the patient has a issue with high airway pressures, potentially causing airway and alveolar trauma. For that reason, I will switch her to volume assist control modality, with a tidal volume at 325, rate 32, FiO2 70%, and PEEP of 14. This will cause permissive hypercapnic ventilation. I'm okay with this, and I will except a pH of 7.15 or higher. He blood gas will be done in one hour. The patient has daily hemodialysis. We will attempt to prone the patient for 16 hours today. She apparently does well with that modality. Currently, she is on saline at KVO, propofol at 65 mcg/kg/m, fentanyl at 2.5 mcg/kg/h, Nimbex at 3.5 mcg/kg/m, and norepinephrine has been weaned off. She is getting vital AF, at 10 mL an hour, which is goal. Over the last 3 days, since I've been seeing her, there is not been much in the way of progress. White count 9.3, hemoglobin 8.1, hematocrit 26.4, platelet count 276,000. Sodium 136, potassium 4.3, chlorides 103, CO2 20, anion gap 13, BUN and creatinine were 20 and 1.14. Chest x-ray today shows improvement of volume status. Progress note dated 10/12/2020. 35-year-old black female again seen in the intensive care unit, room 265. She has a history of coronavirus pneumonia with acute hypoxemic respiratory failure. She was admitted way back on September 10. She ended up with a tracheostomy and PEG tube placement on September 18 for failure to wean from mechanical ventilation. She remains on the ventilator. She is on volume assist control mode rate of 32, tidal volume 325, FiO2 70%, PEEP of 14. Arterial blood gases show pO2 of 54, pCO2 60, pH is 7.17. She's getting hemodialysis today. Peak airway pressures about 21 cm water. He is getting propofol at 75 mcg/kg/m, fentanyl at 3.5 mcg/kg/h, Nimbex at 7 mcg/kg/m, and saline at KVO. Her tube feeds include vital AF at 10 mL an hour, which is goal. She currently tested negative for coronavirus. She is getting hemodialysis today. Chest x-rays essentially unchanged. White count 10.4, he will May 0.1, hematocrit 25.9, platelet count 273,000. Sodium 133, potassium 4.7, chlorides 100, CO2 19, anion gap 14, BUN and creatinine were 21 and 0.91. This electrolyte profile consistent with an anion gap metabolic acidosis. Saturations currently are 95%. Medications are reviewed. Progress note dated 10/13/2020. 35-year-old black female, seen again in the ICU, room 265. She has a history of coronavirus pneumonia with acute hypoxemic respiratory failure. She was admitted to this hospital on the . She ended up with a tracheostomy and PEG tube being placed on September 18 for failure to wean from mechanical ventilation. She remains on mechanical ventilator. Currently, she is on the volume assist control mode, rate 32, tidal volume 325, FiO2 70%, PEEP of 14. Arterial blood gases show pO2 70, pCO2 of 56, and a pH is 7.26. The patient is currently also on Nimbex at 2.5 mcg/kg/m with train of 4 monitoring, propofol at 50 mcg/kg/m, and fentanyl at 2 mcg/kg/h. The patient's also getting vital AF and 10 mL an hour, which is goal. The patient's airway pressures today are a bit better. Her peak airway pressures are in the low 40s. While she was being prone yesterday, there was a significant cuff leak. Hence, she had be placed in the supine position. White count 14.2, hemoglobin 8.3, hematocrit 26.4, and platelet count 285,000. Sodium 134, potassium 4, chlorides 99, CO2 23, anion gap 12, BUN 21, and creatinine 0.70. Microbiology is all negative. Chest x-ray continues to show diffuse bilateral infiltrates. Objective - Vital Signs Vital signs: Vital Signs Temp 97.9 F 10/13/20 00:00 Pulse 124 H 10/13/20 03:00 Resp 32 H 10/13/20 03:00 BP 111/65 10/13/20 03:00 Pulse Ox 95 10/13/20 03:00 Intake & Output 10/12/20 10/12/20 10/13/20 06:59 18:59 06:59 Intake Total 2020.421 1014.841 4762.127 Output Total 4000 Balance 2020.421 -2297.852 1580.127 Weight 117.1 kg 115.8 kg Intake: IV 299 280 184 0.9 Normal Saline @ KVO 260 240 160 0.9 Normal Saline 39 40 24 Pressure Bag Intake, IV Titration 6024.129 6656.148 1256.127 Amount Cisatracurium 200 mg In 563.391 211.693 345.429 Sodium Chloride 0.9% 180 ml @ 1 MCG/KG/MIN 7.308 mls/hr IV .Q24H [facility] Rx#: [id number] fentaNYL (PF) 2,500 mcg 430.430 469.135 418.038 In Sodium Chloride 0.9% 200 ml @ Per Protocol IV .Q0M [facility] Rx#:[id number] propofoL 1,000 mg In 547.6 571.32 492.66 Empty Bag 1 bag @ Per Protocol IV .Q0M [facility] Rx#: [id number] Tube Feeding 120 100 80 Other 60 70 60 Output: Urine 0 Hemodialysis 4000 Other: Voiding Method Incontinent Incontinent Incontinent ABP, PAP, CO, CI - Last Documented Arterial Blood Pressure 91/48 - Exam No acute distress, sedated and paralyzed, with a midline tracheostomy tube. HEENT examination is grossly unremarkable. Neck supple. Full range of motion. No adenopathy thyromegaly or neck vein distention. Midline tracheostomy tube noted. Cardiovascular examination reveals regular rhythm rate. S1-S2 normal. No S3 or S4. No discernible murmur noted. Heart sounds are distant. Heart rate 115 beats per minute. Lungs reveal diffuse coarse rhonchi and bilateral crackles. No wheezes. Breath sounds equal bilaterally but diminished throughout. Abdomen soft bowel sounds are heard. No masses or tenderness. PEG tube noted. Extremities are intact. No cyanosis clubbing or edema. Skin is without rash or lesion. Neurologic examination cannot be adequately assessed as the patient's currently sedated and paralyzed. - Labs CBC & Chem 7: 10/13/20 04:10 10/13/20 04:10 Labs: Abnormal Lab Results - Last 24 Hours (Table) 10/12/20 10/12/20 10/12/20 Range/Units 03:45 06:33 12:00 WBC (3.8-10.6) k/uL RBC (3.80-5.40) m/uL Hgb (11.4-16.0) gm/dL Hct (34.0-46.0) % RDW (11.5-15.5) % Neutrophils # (Manual) (1.3-7.7) k/uL Eosinophils # (Manual) (0-0.7) k/uL Metamyelocytes # (Man) (0) k/uL Myelocytes # (Manual) (0) k/uL Nucleated RBCs (0-0) /100 WBC ABG pH (7.35-7.45) ABG pCO2 (35-45) mmHg ABG pO2 (83-108) mmHg ABG Total CO2 (19-24) mmol/L ABG O2 Saturation (94-97) % Sodium (137-145) mmol/L BUN (7-17) mg/dL POC Glucose (mg/dL) 143 H 131 H (75-99) mg/dL Phosphorus 8.0 H (2.5-4.5) mg/dL Total Protein (6.3-8.2) g/dL Albumin (3.5-5.0) g/dL 10/12/20 10/13/20 10/13/20 Range/Units 17:51 04:10 04:10 WBC 14.2 H (3.8-10.6) k/uL RBC 2.97 L (3.80-5.40) m/uL Hgb 8.3 L (11.4-16.0) gm/dL Hct 26.4 L (34.0-46.0) % RDW 16.8 H (11.5-15.5) % Neutrophils # (Manual) 11.70 H (1.3-7.7) k/uL Eosinophils # (Manual) 0.85 H (0-0.7) k/uL Metamyelocytes # (Man) 0.14 H (0) k/uL Myelocytes # (Manual) 0.14 H (0) k/uL Nucleated RBCs 1 H (0-0) /100 WBC ABG pH (7.35-7.45) ABG pCO2 (35-45) mmHg ABG pO2 (83-108) mmHg ABG Total CO2 (19-24) mmol/L ABG O2 Saturation (94-97) % Sodium 134 L (137-145) mmol/L BUN 21 H (7-17) mg/dL POC Glucose (mg/dL) 115 H (75-99) mg/dL Phosphorus (2.5-4.5) mg/dL Total Protein 5.2 L (6.3-8.2) g/dL Albumin 2.4 L (3.5-5.0) g/dL 10/13/20 Range/Units 05:31 WBC (3.8-10.6) k/uL RBC (3.80-5.40) m/uL Hgb (11.4-16.0) gm/dL Hct (34.0-46.0) % RDW (11.5-15.5) % Neutrophils # (Manual) (1.3-7.7) k/uL Eosinophils # (Manual) (0-0.7) k/uL Metamyelocytes # (Man) (0) k/uL Myelocytes # (Manual) (0) k/uL Nucleated RBCs (0-0) /100 WBC ABG pH 7.26 L (7.35-7.45) ABG pCO2 56 H (35-45) mmHg ABG pO2 70 L (83-108) mmHg ABG Total CO2 27 H (19-24) mmol/L ABG O2 Saturation 91.6 L (94-97) % Sodium (137-145) mmol/L BUN (7-17) mg/dL POC Glucose (mg/dL) (75-99) mg/dL Phosphorus (2.5-4.5) mg/dL Total Protein (6.3-8.2) g/dL Albumin (3.5-5.0) g/dL Assessment and Plan Assessment: Acute hypoxemic respiratory failure, secondary to COVID 19 pneumonia, with ARDS, with admission to hospital on September 10, transferred to ICU on the , intubation on September 11, and tracheostomy and PEG tube placement on September 18. Acute respiratory distress syndrome (ARDS). Acute kidney injury, currently on hemodialysis. Acute diabetic ketoacidosis, resolved. Sepsis, secondary to COVID 19 pneumonia. Anion gap metabolic acidosis. Poorly controlled type 2 diabetes. Elevated inflammatory markers secondary to coronavirus infection. History of essential hypertension. Generalized anxiety disorder. Morbid obesity. Plan: Plan dated 10/09/2020. The patient remains on the pressure regulated volume control mode of ventilation. The patient is being nourished at goal. The patient remains on propofol, Nimbex, and fentanyl. In addition, the patient remains on norepinephrine. Labs, x-rays, and medications are all reviewed. Prognosis is very poor. We will continue to follow. Additional recommendations and suggestions are forthcoming. The patient remains on daily hemodialysis. Plan dated 10/10/2020. The patient remains about the same. She remains on the ventilator. The patient is status post tracheostomy and PEG tube placement. She remains sedated with propofol and fentanyl. She is also chemically paralyzed with Nimbex. She remains on norepinephrine at 8.5 mcg/m for low blood pressure. Cultures are all negative. She remains on periodic hemodialysis. Additional recommendations and suggestions are forthcoming. Diagnosis is guarded. We will continue to follow make recommendations where appropriate. Plan dated 10/11/2020. The patient remains on mechanical ventilator. We will attempt to prone the patient today for 16 hours, to improve oxygenation. In addition, the patient is switched from pressure regulated volume control modality to volume assist control. Settings include tidal volume at 325, rate 32, FiO2 70%, PEEP of 14. A repeat blood gas to be done in an hour. Additional recommendations and suggestions are forthcoming. The patient is currently undergoing daily hemodialysis. Prognosis remains very poor. We will continue to follow make recommendations where appropriate. Plan dated 10/12/2020. The patient remains on mechanical ventilator. We'll see for can wean down the Nimbex. This seems like a high-dose to me. He should be doing [id number] monitoring. The patient is receiving hemodialysis today. Saturations are 95 and 96%. Peak airway pressures 41 cm water. Additional recommendations and suggestions are forthcoming. Prognosis is very guarded. She is getting nutrition at goal. The patient does better in terms of her saturations, when she is in the prone position. Today we will place her in the prone position again. Plan dated 10/13/2020. The patient remains on mechanical ventilator. She did not do well yesterday w ith prone because of the tracheostomy cuff leak. Her airway pressures are a bit lower today. She remains on Nimbex, propofol, and fentanyl. She is getting nutrition at goal. Today's blood gases are reasonable. She's currently getting daily hemodialysis. We will continue to follow. Additional recommendations and suggestions are forthcoming. We'll attempt to get the paralysis off. No additi onal recommendations are made at this time. Time with Patient: Greater than 30
[2020-10-13] MEDS: INSULIN DETEMIR (LEVEMIR) 100 UNIT/ML SYR SQ SCH ×2 (07:45→21:19)
--- NOTE | 2020-10-13 07:49 | XR ---
EXAMINATION TYPE: XR chest 1V portable DATE OF EXAM: 10/13/2020 COMPARISON: 10/12/2020 INDICATION: Respiratory failure TECHNIQUE: Single frontal view of the chest is obtained. FINDINGS: The heart size is normal. The pulmonary vasculature is indistinct. Diffuse increased lung markings are present bilaterally. This is worsening over the interval. Tracheostomy tube is in the midline. Catheter is present on the right with the tips in the distal sup erior vena cava region. PICC line enters on the right with the tip in the superior vena cava region IMPRESSION: 1. Worsening bilateral lung infiltrates. Correlate for pulmonary edema and pneumonia. 2. Lines and catheters discussed above.
[2020-10-13] MEDS: SYMBICORT 160-4.5 MCG INHALER INHALATION SCH ×2 (08:02→20:16)
[2020-10-13] MEDS: ALBUTEROL HFA INHALER INHALATION SCH ×4 (08:02→20:16)
[2020-10-13] MEDS: SODIUM BICARBONATE TAB 650 MG TAB PO SCH ×3 (08:38→21:11)
[2020-10-13] MEDS: PANTOPRAZOLE 40 MG/10 ML VIAL IVP SCH (08:38)
[2020-10-13] MEDS: DEXAMETHASONE SOD PHOSPHATE 4 MG/ML 1 ML VIAL IV SCH (08:39)
[2020-10-13] MEDS: CHOLECALCIFEROL 25 MCG (1000 IU) TABLET PO SCH (08:39)
[2020-10-13] MEDS: ENOXAPARIN 40 MG/0.4 ML SYRINGE SQ SCH (08:39)
[2020-10-13] MEDS: ZINC SULFATE 220 MG CAP PO SCH (08:39)
[2020-10-13] MEDS: SEVELAMER 800 MG TAB PO SCH ×3 (08:39→16:43)
[2020-10-13] MEDS: ASCORBIC ACID 500 MG TAB PO SCH ×2 (08:39→21:11)
--- NOTE | 2020-10-13 10:19 | P.PN ---
Subjective Patient is seen in follow-up for acute kidney injury. Off vasopressors but blood pressure has been on the lower side this morning. Oliguric. Status post tracheostomy and PEG tube placement this admission. Receiving tube feeding. Currently on 70% FiO2. No changes overnight. Vital signs: Stable. General: The patient appeared well nourished and normally developed. HEENT: Tracheostomy noted. LUNGS: Breath sounds decreased. HEART: Regular rate and rhythm. Abdomen: Soft, no distention. EXTREMITITES: 1+ edema. Objective - Vital Signs Vital signs: Vital Signs Temp 98.6 F 10/13/20 08:00 Pulse 125 H 10/13/20 10:00 Resp 32 H 10/13/20 10:00 BP 83/56 10/13/20 09:00 Pulse Ox 95 10/13/20 10:00 Intake & Output 10/12/20 10/13/20 10/13/20 18:59 06:59 18:59 Intake Total 7481.617 1860.127 288.28 Output Total 4000 Balance -2297.852 1916.127 288.28 Weight 115.8 kg 115.8 kg Intake: IV 280 260 69 0.9 Normal Saline @ KVO 240 220 60 0.9 Normal Saline 40 40 9 Pressure Bag Intake, IV Titration 6018.999 9937.127 189.28 Amount Cisatracurium 200 mg In 211.693 545.429 Sodium Chloride 0.9% 180 ml @ 1 MCG/KG/MIN 7.308 mls/hr IV .Q24H [facility] Rx#: [id number] fentaNYL (PF) 2,500 mcg 469.135 418.038 In Sodium Chloride 0.9% 200 ml @ Per Protocol IV .Q0M [facility] Rx#:[id number] propofoL 1,000 mg In 571.32 492.66 189.28 Empty Bag 1 bag @ Per Protocol IV .Q0M [facility] Rx#: [id number] Tube Feeding 100 110 30 Other 70 90 Output: Urine 0 Hemodialysis 4000 Other: Voiding Method Incontinent Incontinent ABP, PAP, CO, CI - Last Documented Arterial Blood Pressure 123/65 - Labs CBC & Chem 7: 10/13/20 04:10 10/13/20 04:10 Labs: Abnormal Lab Results - Last 24 Hours (Table) 10/12/20 10/12/20 10/12/20 Range/Units 03:45 12:00 17:51 WBC (3.8-10.6) k/uL RBC (3.80-5.40) m/uL Hgb (11.4-16.0) gm/dL Hct (34.0-46.0) % RDW (11.5-15.5) % Neutrophils # (Manual) (1.3-7.7) k/uL Eosinophils # (Manual) (0-0.7) k/uL Metamyelocytes # (Man) (0) k/uL Myelocytes # (Manual) (0) k/uL Nucleated RBCs (0-0) /100 WBC ABG pH (7.35-7.45) ABG pCO2 (35-45) mmHg ABG pO2 (83-108) mmHg ABG Total CO2 (19-24) mmol/L ABG O2 Saturation (94-97) % Sodium (137-145) mmol/L BUN (7-17) mg/dL POC Glucose (mg/dL) 131 H 115 H (75-99) mg/dL Phosphorus 8.0 H (2.5-4.5) mg/dL Total Protein (6.3-8.2) g/dL Albumin (3.5-5.0) g/dL 10/13/20 10/13/20 10/13/20 Range/Units 04:10 04:10 05:31 WBC 14.2 H (3.8-10.6) k/uL RBC 2.97 L (3.80-5.40) m/uL Hgb 8.3 L (11.4-16.0) gm/dL Hct 26.4 L (34.0-46.0) % RDW 16.8 H (11.5-15.5) % Neutrophils # (Manual) 11.70 H (1.3-7.7) k/uL Eosinophils # (Manual) 0.85 H (0-0.7) k/uL Metamyelocytes # (Man) 0.14 H (0) k/uL Myelocytes # (Manual) 0.14 H (0) k/uL Nucleated RBCs 1 H (0-0) /100 WBC ABG pH 7.26 L (7.35-7.45) ABG pCO2 56 H (35-45) mmHg ABG pO2 70 L (83-108) mmHg ABG Total CO2 27 H (19-24) mmol/L ABG O2 Saturation 91.6 L (94-97) % Sodium 134 L (137-145) mmol/L BUN 21 H (7-17) mg/dL POC Glucose (mg/dL) (75-99) mg/dL Phosphorus (2.5-4.5) mg/dL Total Protein 5.2 L (6.3-8.2) g/dL Albumin 2.4 L (3.5-5.0) g/dL Assessment and Plan Plan: Assessment: 1. Acute kidney injury secondary to ATN secondary to COVID-19 and DKA. Baseline creatinine is near 1. Started on hemodialysis on September 14. Has p-cath. Oliguric. No hydronephrosis noted on kidney ultrasound. 2. DKA s/p insulin drip and IV fluids. 3. Acute hypoxic respiratory failure secondary to COVID-19 pneumonia. Status post tracheostomy this admission. 4. Metabolic acidosis secondary to acute kidney injury and DKA s/p bicarb drip. Maintained on oral bicarbonate. Expect further improvement postdialysis. 5. Hyponatremia, hypervolemic. Stable. Blood sugar stable. 6. Hyperphosphatemia secondary to acute kidney injury. Maintained on Renvela. 7. Anemia of chronic illness and kidney disease. Maintained on Aranesp. Iron deficiency noted - s/p iv iron. 8. Fluid overload. Improving but daily ultrafiltration. Plan: Continue with daily dialysis mostly for ultrafiltration. Maintain tube feeds. Avoid nephrotoxins. Continue to monitor renal function and urine output. Monitor for renal recovery. Wean FiO2. Increase dose of Renvela.
[2020-10-13] MEDS: SODIUM CHLORIDE 0.9% 500 ML 500 ML IV SCH (11:35)
[2020-10-13] MEDS: NOREPINEPHRINE 8 MG in SODIUM CHLORIDE 0.9% 250 ML IV SCH ×2 (11:35→22:17)
[2020-10-13 11:40] LABS: Glucose,Whole Blood 85 mg/dL (75-99)
--- NOTE | 2020-10-13 11:48 | P.PN ---
Subjective Progress Note Date: 10/13/20 CHIEF COMPLAINT: COVID-19 pneumonia HISTORY OF PRESENT ILLNESS: Patient is in the ICU for COVID-19 pneumonia and respiratory failure. She is status post tracheostomy and PEG tube placement with Dr. Hollis. Patient is tolerating tube feedings. Her to feedings are at goal at 30 mL per hour. Patient remains on mechanical ventilation. Patient has been getting daily hemodialysis treatments. Patient did not tolerate prone position yesterday due to cuff leak. Check x-ray worsening bilateral infiltr ates. Afebrile. Tachycardic. WBC 14.2 hemoglobin 8.3 Patient seen and examined with Dr. hollis PHYSICAL EXAM: VITAL SIGNS: Reviewed. GENERAL: Well-developed in no acute distress. HEENT: No sclera icterus. Extraocular movements grossly intact. Moist buccal mucosa. Head is atraumatic, normocephalic. Tracheostomy site clean dry and intact. ABDOMEN: Soft. Nondistended. Nontender. PEG tube site clean dry and intact NEUROLOGIC: Sedated ASSESSMENT: 1. Acute hypoxic respiratory failure with prolonged mechanical ventilation due to COVID-19 pneumonia status post tracheostomy placement 2. Severe protein calorie malnutrition status post PEG tube placement PLAN: -Monitor tracheostomy cuff leak -Continue tube feedings -Continue supportive care -Continue ICU management Physician Restaurant Inspector note has been reviewed by physician. Signing provider agrees with the documented findings, assessment, and plan of care. Objective - Vital Signs Vital signs: Vital Signs Temp 98.6 F 10/13/20 08:00 Pulse 122 H 10/13/20 11:00 Resp 34 H 10/13/20 11:00 BP 83/56 10/13/20 09:00 Pulse Ox 95 10/13/20 11:00 Intake & Output 10/12/20 10/13/20 10/13/20 18:59 06:59 18:59 Intake Total 7535.013 1418.127 377.438 Output Total 4000 Balance -2297.852 1916.127 377.438 Weight 115.8 kg 115.8 kg Intake: IV 280 260 69 0.9 Normal Saline @ KVO 240 220 60 0.9 Normal Saline 40 40 9 Pressure Bag Intake, IV Titration 3918.819 9612.127 278.438 Amount Cisatracurium 200 mg In 211.693 545.429 89.158 Sodium Chloride 0.9% 180 ml @ 1 MCG/KG/MIN 7.308 mls/hr IV .Q24H [facility] Rx#: [id number] fentaNYL (PF) 2,500 mcg 469.135 418.038 In Sodium Chloride 0.9% 200 ml @ Per Protocol IV .Q0M [facility] Rx#:[id number] propofoL 1,000 mg In 571.32 492.66 189.28 Empty Bag 1 bag @ Per Protocol IV .Q0M [facility] Rx#: [id number] Tube Feeding 100 110 30 Other 70 90 Output: Urine 0 Hemodialysis 4000 Other: Voiding Method Incontinent Incontinent ABP, PAP, CO, CI - Last Documented Arterial Blood Pressure 116/60 - Labs CBC & Chem 7: 10/13/20 04:10 10/13/20 04:10 Labs: Abnormal Lab Results - Last 24 Hours (Table) 10/12/20 10/12/20 10/13/20 Range/Units 12:00 17:51 04:10 WBC 14.2 H (3.8-10.6) k/uL RBC 2.97 L (3.80-5.40) m/uL Hgb 8.3 L (11.4-16.0) gm/dL Hct 26.4 L (34.0-46.0) % RDW 16.8 H (11.5-15.5) % Neutrophils # (Manual) 11.70 H (1.3-7.7) k/uL Eosinophils # (Manual) 0.85 H (0-0.7) k/uL Metamyelocytes # (Man) 0.14 H (0) k/uL Myelocytes # (Manual) 0.14 H (0) k/uL Nucleated RBCs 1 H (0-0) /100 WBC ABG pH (7.35-7.45) ABG pCO2 (35-45) mmHg ABG pO2 (83-108) mmHg ABG Total CO2 (19-24) mmol/L ABG O2 Saturation (94-97) % Sodium (137-145) mmol/L BUN (7-17) mg/dL POC Glucose (mg/dL) 131 H 115 H (75-99) mg/dL Total Protein (6.3-8.2) g/dL Albumin (3.5-5.0) g/dL 06/11/21 06/11/21 Range/Units 04:10 05:31 WBC (3.8-10.6) k/uL RBC (3.80-5.40) m/uL Hgb (11.4-16.0) gm/dL Hct (34.0-46.0) % RDW (11.5-15.5) % Neutrophils # (Manual) (1.3-7.7) k/uL Eosinophils # (Manual) (0-0.7) k/uL Metamyelocytes # (Man) (0) k/uL Myelocytes # (Manual) (0) k/uL Nucleated RBCs (0-0) /100 WBC ABG pH 7.26 L (7.35-7.45) ABG pCO2 56 H (35-45) mmHg ABG pO2 70 L (83-108) mmHg ABG Total CO2 27 H (19-24) mmol/L ABG O2 Saturation 91.6 L (94-97) % Sodium 134 L (137-145) mmol/L BUN 21 H (7-17) mg/dL POC Glucose (mg/dL) (75-99) mg/dL Total Protein 5.2 L (6.3-8.2) g/dL Albumin 2.4 L (3.5-5.0) g/dL
--- NOTE | 2020-10-13 13:39 | P.PN ---
Subjective Progress Note Date: 10/13/20 HISTORY OF PRESENT ILLNESS 35-year-old female patient of Dr. Arroyo with past medical history of type 2 diabetes comes in with acute shortness of breath associated with high light sugars. Patient on admission was found to have a fever of 101.5 pulse rate 125 respiratory rate 20. Blood pressure 132/106. On chest x-ray obtained in the ER suggestive of bilateral infiltrates concerning for call with pneumonia. COVID PCR was positive. On admissions patient had an ABG with a pH of 7.14 pCO2 of 20, pO2 of 59, bicarb of 7. Patient's blood sugar on admission was 424 on assessment today patient's blood work patient had a sodium 135 potassium 5.4 chloride 123 bicarb less than 5 and creatinine 0.73. D-dimer was elevated on admission patient 9 28 patient given 1 L of IV fluids followed by normal saline running at 200 mL/h. Patient was positive for acetone on admission. She will anion gap closed and was switched to D5NS. Insulin drip was continued during the night and was switched to patient's home medication this morning. One dose of remdesiver was ordered. Apparently around noon, A- team was called on the patient secondary to hypoxia patient's oxygen saturation dropped to the 70s and 80s on 100% nonrebreather. Patient was switched to BiPAP on 18/12 and is doing better o FiO2 of 80%. ABG was obtained and ph was 7. 14 pCO2 of 28 bicarb of 7 pO2 of 17. Patient noted to have uncompensated metabolic acidosis with compensated respiratory alkalosis. Stat dose of 1 amp bicarb was given and followed by sodium bicarbonate drip. Insulin drip restarted. Patient's initiated on dexamethasone 6 mg IV twice a day. Potassium phosphate ordered as phosphorus is low. Patient's repeat blood gases suggest a pH of 7.25, CO2 32 pO2 of 72 bicarb 14. I will not normal saline at 100 mL/h as patient's anion gap has increased. Patient given 1 dose of 2 mg of morphine with improvement in respiratory rate. One dose of Ativan 0.5 mg was given. Xanax 0.25 twice a day along with Ativan 0.5 IV every 6 hours ordered for the patient. Vitals were evaluated patient pulse 129 [id number]. She was moved to the ICU. Precedex drip was initiated. Lopressor was initiated at 25 twice a day. Metoprolol tartrate 5 mg IV every 6 hours. Systolic blood pressure more than 160. Started chest x-ray was obtained and suggest stable bilateral consolidation suggestive of COVID-19 pneumonia. 09/12 patient is seen in the ICU is currently mechanically ventilated and sedated on vent settings of respiratory rate 36, tidal volume 375 FiO2 80% PEEP of 18.. Vital signs reviewed patient had a temp of 100.4 pulse 150 respiratory rate 36 oxygen saturation 95% on 80% on fio2 .'s labs are reviewed which patient had a d-dimer 1.84 that is increased to 14.3. Arterial Blood gas suggest ph 7.35, CO2 40, po2 62, . Her BMP suggest a sodium 135 potassium 3.7 chloride 112 bicarb 21 creatinine 1.57 for calcitonin is 3.5 CRP is increased from 8.78.2 LDH is increased to 2614. Patient remains on Pneumovax, propofol drip. Lovenox increased to 50 subcu twice a day. Patient received 2 L of IV fluids. Continue IV fluids at 100 mL/h. Bicarb drip discontinued patient initiated on Zosyn 3.375 every 8 hours. Continue insulin drip at 4 units per hour. Patient is currently in prone positioning 09/13: Patient evaluated in the ICU remains on Ventilation continues to be sedated, in prone position. Vent settings are respiratory rate 36, tidal vital 375, FiO2 70% PEEP of 18. ABG shows pO2 of 82, PCO2 of 39, pH is 7.19. Latest labs show WBC 11.1, hemoglobin 13.2, d-dimer still pending, but yesterday was up to 14.3. Creatinine up to 3.4, BUN 24 sodium 137, potassium 4.0. Patient's urine output has been low, nephrology on consult. Bicarb drip increased to 100 miles an hour, receiving another liter of normal saline, she did have a ultrasound that showed unremarkable bilateral kidneys. Repeat chest x-ray showed bilateral lung infiltrates that are stable. Anion gap has closed, will start Lantus 10 units at at bedtime Novolog every 6 hours. 09/14: Patient is seen in the ICU, still currently mechanically ventilated and sedated. She continues in the prone position. Her oxygen quickly drops if she is not in prone. Patient's kidney function has worsened. Laboratory values show creatinine of 4.87, BUN 33, LDH 2191, C-reactive protein 2.7. ABG shows pH 7.32, pO2 of 60, pCO2 43. Patient is making almost no urine overnight. Nephrology is following patient continues on cefepime for urinary tract infection, culture is still pending. Vascular has been consulted for placement of temporary hemodialysis catheter for plans for dialysis. 09/15: Patient evaluated in the ICU, continues to be mechanically ventilated and sedated on assist control ventilation rate of 36, tidal volume 375, FiO2 100% and PEEP of 18. ABG today shows pO2 58, pCO2 of 45, and pH 7.35. She continues on tube feedings. Yesterday patient underwent ultrasound-guided right internal jugular non-tunneled hemodialysis catheter placement. Patient underwent hemodialysis treatment last night and plans have another hemodialysis treatment today. She continues to make almost no urine. She continues on cefepime for antibiotic coverage, and continues on Decadron and Lovenox. 09/16: Patient seen on follow-up remains in the ICU mechanically ventilated and sedated. She continues on assist control rate of 36, tidal volume 375, FiO2 100% and PEEP of 20. PEEP had to be increased due to patient had to be in supine position for dialysis, will go back to prone position once dialysis is complete. ABG shows pH 7.32, pCO2 49, PaO2 61. Laboratory values showed WBC 11.2, hemoglobin 11, sodium 134, creatinine 4.44, BUN 38. Urine culture shows no growth, blood cultures show no growth to date. Repeat chest x-ray shows bilateral pleural effusions, correlate for ARDS, pulmonary edema, diffuse pneumonia, findings are stable from last exam. Patient does not require any pressors, blood pressure 133/57, heart rate 78. 5/16: Patient was evaluated in the ICU today for follow-up. She continues to be intubated and on mechanical ventilation. Current vent settings are tidal volume 375, FiO2 100% and PEEP of 20. ABG shows pH 7.37, pCO2 40, pO2 102. She continues with intermittent prone positioning. Patient continues to have almost no urine output, maintained on dialysis. Patient received dialysis yesterday without complication. Laboratory values revealed WBC 10.3, hemoglobin 10.4, sodium 132, potassium 3.1, BUN 33, creatinine 4.29, LDH 1913, C-reactive protein 1.3. Urine and sputum cultures are negative, blood cultures show no growth to date. Consult placed to dietary to start TPN[ ] 09/18: She remains in the intensive care unit intubated and on mechanical ventilation with tidal volume 375, FiO2 60 and PEEP of 20. Patient is being prone to daily at approximately 16 hours per day. Pulmonary medicine has added in Dr. Zhang to do PEG tube and trach today. Patient is not on vasopressors. Repeat blood work reveals WBC 12.6, hemoglobin 9.8, platelet count 212. Sodium 133, potassium 3.2, chloride 102, CO2 21, BUN 35 and creatinine 4.12. Blood sugar 126. Patient underwent hemodialysis yesterday with removal of 2 L and is scheduled again today with goal of 2-3 L and is scheduled again tomorrow. 09/19: She is scheduled for hemodialysis today and is off fentanyl temporarily. Patient is status post trach and PEG tube yesterday. And she remains on mechanical ventilation. Pulse ox 93-95%. She has been afebrile, heart rate 64, respiratory rate 36, blood pressure 115/50. Fentanyl is off to improve blood pressure for hemodialysis which is scheduled for today. Contacted vascular surgery about permanent hemodialysis catheter. Repeat blood work reveals WBC 14.3, hemoglobin 9.6, platelet count 200. D-dimer 6.48. LDH 1686. C-reactive protein 1.1. BUN 34 creatinine 3.81. Sodium 130, potassium 3.5, chloride 101, CO2 18. Blood sugars running between 101 198. Plan is to wean off Pneumovax today. Patient remains on insulin drip. Repeat chest x-ray reveals bilateral multifocal confluent opacities consistent with COVID-19. Some improved aerati on periphery of the left lung and worsening opacities throughout the right lung. 09/20: She remains in the intensive care unit on mechanical ventilation. She has been afebrile, heart rate 65, respiratory rate 37, blood pressure 121/70, pulse ox 91-99%. Repeat blood work reveals WBC 14.5, hemoglobin 9.1, platelet count 216. D-dimer 6.13. Sodium 133, potassium 3.1, chloride 102, CO2 18, BUN 35 and creatinine 4.27. Blood sugars running between 128 and 143. LDH 1717. C- reactive protein 1.7. Patient remains on insulin drip which will be transitioned to NovoLog scale every 6 hours. Patient is scheduled for permanent hemodialysis catheter placement today with vascular surgery. Repeat chest x-ray reveals stable diffuse bilateral interstitial and airspace disease. Possible small right effusion. His work is following for [facility]. Do not anticipate discharge until next week. 09/21: Patient is undergoing hemodialysis. She remains on mechanical ventilation with tidal volume 375, FiO2 down to 45 and PEEP was decreased to 15. Patient is continued on propofol, fentanyl drips. She is on tube feedings at goal. Patient was taken off insulin drip yesterday and on scale only but blood sugars are running in the 200s, Levemir scheduled at bedtime will be added. Other blood work reveals WBC 13.3, hemoglobin 8.7, platelet count 192. Sodium 137, potassium 3.6, chloride 107, CO2 18, BUN 34 and creatinine 4.21. Repeat chest x-ray is stable. 09/22: She remains in the intensive care on mechanical ventilation with tidal volume 375, FiO2 of 50 and PEEP of 10. Pulse ox is running 96%. She is afebrile, heart rate in the 50s, respiratory rate 36, blood pressure 100/64. Repeat blood work reveals WBC 16.5, hemoglobin 8.9, platelet count 213. Sodium 134, potassium 3.7, chloride 103, CO2 21, BUN 34 and creatinine 3.89. Blood sugars running in the 200s to 324. Levemir increased to 16 units at bedtime and continue NovoLog scale every 6 hours. Patient is on tube feedings at goal. She has a Haley catheter in with a scant amount of dark/brown urine. Fecal management system is in place. Repeat chest x-ray reveals diffuse bilateral airspace infiltrates persist unchanged. Patient is scheduled for hemodialysis tomorrow morning on Friday. 09/23: Patient remains on mechanical ventilation with tidal volume 3.75, FiO2 50 and PEEP of 10. ekg monitor tech sinus rhythm. She has no urine output. Fecal management system is in place. She is undergoing dialysis at this time with plan for removal of 2-1/2 L. She has been afebrile, heart rate in the 50s, respiratory rate 36, blood pressure 108/76 and pulse ox 89%. WBC 13.6, hemoglobin 9.1, platelet count 194. Sodium 136, potassium 3.0 and was replaced, chloride 106, CO2 21, BUN 49 creatinine 5.31. Blood sugars are running between 182 and this morning 194. Patient was still in the 200s and 300s. Levemir last evening was increased to 16 units. Patient remains on propofol and fentanyl dri ps. Lovenox was increased to 60 mg twice daily. 09/24: PEEP was increased today to 20, tidal volume is at 375 and FiO2 of 50%. Patient has been afebrile. She has been started on levo fed. Repeat chest x- ray reveals bilateral multifocal confluent opacities consistent with Covid 19 or ARDS redemonstrated. Nephrology will plan dialysis for tomorrow for 3 L. Patient remains on propofol fentanyl and Nimbex. WBC 12.5, hemoglobin 9.8, platelet count 161. D-dimer 13.3. Sodium 132, potassium 3.4, chloride 102, CO2 20, BUN 48 and creatinine 4.67. Blood sugars extremely elevated to 96-409. LDH 2217. 09/25: Patient remains in the intensive care unit on mechanical ventilation with tidal volume 375, FiO2 50 and PEEP of 20. Patient is afebrile, heart rate 61, respiratory rate 36, blood pressure 102/56, pulse ox 97%. Repeat blood work reveals WBC 9.3, hemoglobin 8.5 and platelet count 171. Sodium 130, potassium 3.7, chloride 100, CO2 20, BUN 61 creatinine 5.65. Blood sugars have been walt vated up to 455. Levemir increased to 20 units twice daily, NovoLog 5 units every 6 hours and continue NovoLog scale. Patient is scheduled for hemodialysis today. Repeat chest x-ray reveals bilateral multifocal and confluent opacities. Decadron and Lovenox dosing change by pulmonary. Patient is off norepinephrine. 09/26: Patient remains in the intensive care unit on mechanical ventilation with tidal volume 375, FiO2 50 and PEEP of 15. She has been afebrile, heart rate 91, blood pressure 114/68, pulse ox 99%. ekg monitor tech sinus rhythm. 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 Sodium 134, potassium 3.6, chloride 102, CO2 22, BUN 41 creatinine 4.21. Patient has improved blood sugars this morning running 150s and 160s. Diabetic medications were adjusted yesterday. Patient is awake and alert and interacting. Yesterday, patient had PICC line inserted by interventional radiology. Repeat chest x-ray reveals diffuse airspace infiltrates in both lung ann appear to progress slightly in the interval. 09/27: Patient remains in intensive care unit on mechanical ventilation with improvement of settings with tidal volume 375, FiO2 decreased to 40 and PEEP decreased to 10. Patient is on hemodialysis every other day and plan to remove 3 L today. Patient is more awake and alert. She is slow to respond but is able to follow simple commands. Blood sugars are running between 84 and 123. Repeat blood work reveals WBC 7.1, hemoglobin 8.1, platelets 152. Sodium 135, potassium 3.6, chloride 103, CO2 21, BUN 53 and creatinine 5.88. Repeat chest x -ray revealed cardiomegaly and pulmonary edema. Patient is on tube feedings:. Patient is not require vasopressors and is off sedation. Fecal management system remains in place for brown liquid stool. C. difficile was negative. 09/28: Patient remains on mechanical ventilation with tidal volume 375, FiO2 increased to 80 and PEEP increased to 18. Patient had a rough night was very anxious, no pain. Xanax 0.25 mg 3 times daily was added. There is concern for pulmonary embolism for which patient was started on heparin drip, she is unable to undergo CAT scan. Venous Doppler bilateral lower extremities was nondiagnostic due to extensive edema in obese patient but minimal imaging of the popliteal veins does show flow. Repeat echocardiogram has been ordered. Cefepime has also been ordered at 1 g IV piggyback every 24 hours as well as vancomycin, pharmacy dosing. Patient is back on fentanyl drip, propofol drip and norepinephrine. Blood sugars are elevated and insulin Levemir will be increased to 25 mg twice daily. Ferrlecit infusion has been ordered by nephrology for 4 days. Patient is undergoing hemodialysis today.temperature max 100.2, heart rate 134, respiratory rate 34, blood pressure 120/65, pulse ox 94%. ekg monitor tech is sinus tachycardia. Repeat blood work reveals WBC 16.9, hemoglobin 9.7, platelet count 216. D-dimer 8.81. Sodium 134, potassium 3.8, chloride 99, CO2 25, BUN 43 and creatinine 5.36. Blood sugars in the 200s. AST 40. 09/29 Patient had declined more last 48 hours require more sedation, patient is doing hemodialysis, respiratory failure is quite bit worse this time. Patient was inquired the pain is well back on fentanyl drip. Her vent set up with PEEP is limited but higher. No new finding on culture and her chest x-ray continues shows diffuse infiltrate persistent although there is a moderate interval improvement. 09/30 patient's was seen and evaluated. PEEP was reduced to 11 as patient is maintaining good saturation at the current vent settings. 10/01 patient was seen at bedside. She is currently on assist control rate of 28 white tidal volume 350 FiO2 50% and PEEP of 10 which has been reduced by pulmonary as patient name cleaning her oxygen saturation. Arm blood gas was obtained with a pH of 7.35 pCO2 37 pO2 of 63. She remains hemodynamically stable with no need for pressors. Labs were reviewed patient's BUN is 29 cre atinine 3.93 glucose 122 albumin 2.2 sodium 131 chloride 19 hemoglobin is downtrending with a Hb of 7.3 no leukocytosis 7.1. Patient's urine output is minimal at this time. Her rate has increased to 129 and is currently on positive fluid balance even with dialysis. Last dialysis was done yesterday. Continue enteral feeding currently at goal. Antibiotic has been discontinued and continues to remain on DEXA methicillin 4 mg IV daily. 10/02 patient continues to be on trach support with mechanical ventilation. Patient was evaluated by icing mixer and was switched to VC control as patient was noted to be double stacking on and off throughout the night. Respiratory rate continue to 28 tidal volume increased to 400 with a PEEP for Dr. Downey. Patient is maintaining oxygen saturation 91% on the current setting. According to the nurse bedside patient saturation drops significantly or she is moved or her sedation is dropped. Patient is currently on propofol drip, fentanyl drip. She did underwent dialysis today and was able to maintain her low pressure without the need of pressors. Labs reviewed today suggest a WBC of 6.7 hemoglobin of 7.0 and d-dimer 3.9 bicarb 17 BUN 38 creatinine 4.8. LDH is 964. Sodium 1:30 likely secondary to volume overload. Urine sodium and urine osmolality ordered. Patient's glucose this morning is 146. Continue to remain on enteral feeding. Urine output is reduced. Fall catheter will be placed today. Continue to remain on dialysis. 10/03: Patient remains on mechanical ventilation and is back on propofol and fentanyl drips. Patient is currently on VC control with tidal volume 400, FiO2 55 and PEEP of 12. Patient still is not making any urine and is dialysis dependent with next treatment planned for tomorrow with removal of 3-3-1/2 L. PEG tube feedings are at goal. Fecal management system remains in place. At the time of evaluation, patient is off levophed. Repeat chest x-ray reveals stable diffuse bilateral airspace disease correlate for ARDS, pulmonary edema or diffuse pneumonia. Temperature max last evening was 101. Temperature currently 99, heart rate 106, respiratory rate 32, blood pressure 101/50, pulse ox 86%. Repeat blood work reveals WBC 6, hemoglobin 7.4, platelet count 160. D-dimer 4.05. Sodium 133, potassium 3.5, chloride 100, CO2 23, BUN 31 creatinine 3.8. Blood sugars are running between 100 and 170. Ferritin 1514. Liver function test normal. LDH 1016, C-reactive protein 13.6. Prognosis remains guarded. 10/04: Patient remains intubated on mechanical ventilation with tidal volume 400, FiO2 65, PEEP of 14. Patient continues to run fevers and repeat blood culture and urine and urine culture ordered for today. Haley catheter has been removed this patient has no significant urine output at about 20 mL per shift. BladderScan is monitored for greater than 300 and the patient is straight cathed. Hemoglobin is 6.8 and she has been ordered 41 unit of packed RBCs today. She is currently on propofol and fentanyl drips. She is scheduled for hemodialysis today. WBC 4.5, hemoglobin 6.8, platelet count 151. D-dimer 3.28. Sodium 132, potassium 4.1, chloride 100, CO2 22, BUN 37 creatinine 4.74. Blood sugars running between 97 and 110. Ferritin 1801. LDH 859. C-reactive protein 14.4. Chest x-ray reveals correlate for pneumonia, edema, ARDS. Prognosis remains guarded. 10/05: Patient remains in intensive care unit currently on mechanical ventilation with tidal volume 400, FiO2 was increased to 100 and PEEP is at 14. She continues to run fevers which have worsened with temperature max 103.1. She has been tachycardic in the 130s, blood pressure is marginal but not on vasopressors. Pulse ox currently 92%. Repeat blood work reveals WBC 5.5, hemoglobin 7.6, platelet count 190. D-dimer 2.7, ferritin 1770, LDH 932, C- reactive protein 21.4. Blood sugars are running between 100 1669. Electrolytes are normal. BUN 27 and creatinine 3.79. Pancultures were done yesterday including a straight cath for urine culture, sputum culture and blood culture. Arterial line was removed as well as midline. She is currently on propofol, fe ntanyl and started on Nimbex today. 10/06: Patient remains in the intensive care unit. Today patient in prone position and remains on mechanical ventilation with tidal volume 350, FiO2 65 and PEEP of 14. Her last documented fever was yesterday at 2 PM. Heart rate is in the 120s, respiratory rate 32, pulse ox 88-92%. CBC is unremarkable. Electrolytes are normal. BUN 30 creatinine 2.93. Blood sugars are running between 135 and 164. Cultures from October 04: Blood culture no growth, sputum culture finalized, urine culture finalized. Catheter tip culture is in process. Repeat chest x-ray shows bilateral interstitial infiltrates. Patient is on tube feedings of Nepro at goal of 30 ML's per hour. Patient underwent dialysis yesterday and is scheduled for repeat dialysis today. 10/07: Patient maintains in the intensive care unit intubated and on mechanical ventilation. She is receiving hemodialysis this morning has been every day. Plan is to remove 2-1/2 L today. Vent settings have changed today with tidal volume 350, FiO2 was increased to 100% and PEEP remains at 14. She has been continued on Nimbex, fentanyl, norepinephrine and propofol. Plan is to prone position patient following dialysis. Repeat chest x-ray reveals worsening interstitial infiltrates. BUN is 26 and creatinine 2.59. LDH 955, C-reactive protein 22.1. Prognosis remains poor. 10/08: Patient remains in intensive care unit intubated and on mechanical ventilation with tidal volume 350, FiO2 60, PEEP of 14. She is pronating today. She is scheduled for hemodialysis on a daily basis. She has been afebrile, heart rate 112, respiratory rate 36, blood pressure 161/88, pulse ox 93%. Repeat blood work reveals WBC 9.9, hemoglobin 9.1, platelet count 320. Sodium 133, potassium 5.3, chloride 100, CO2 20, BUN 29 creatinine 2.44. Blood sugar running between 102 and 139. LDH 1026, C-reactive protein 19.7. 10/09: Patient is undergoing dialysis this morning. She continues to be intubated and on mechanical ventilation with tidal volume 350, 270 and PEEP of 14. Patient is also on propofol, Nimbex, norepinephrine and fentanyl drips. Repeat chest x-ray reveals persistent bilateral multifocal and confluent opacities consistent with Covid 19. She is afebrile, heart rate 116, respiratory rate 36, blood pressure 120/65, pulse ox 91%. Repeat blood work reveals WBC 5.4, hemoglobin 9.2, platelet count 216. D-dimer 2.67, ferritin 2568, LDH 794, C- reactive protein 13.9. Blood sugars have been running 90-104. Creatinine 1.64. She is on daily dialysis treatment. 10/10: She remains in the intensive care unit. She is now out of isolation as a repeat Covid test came back negative. She remains on mechanical ventilation with tidal volume 350, FiO2 70 and PEEP of 14. Patient is also on Nimbex, propofol, norepinephrine, fentanyl drips. She is on PEG tube feedings at goal and tolerating well. Repeat blood work reveals WBC 7.8, hemoglobin 7.5, platelet count 267. Sodium 139, potassium 3.9, chloride 109, CO2 20, BUN 20 creatinine 1.29. Blood sugars are running between 76 and 102. Scheduled Nov oLog decreased to 3 units. Repeat chest x-ray reveals moderate cardiomegaly and continued pulmonary edema. Slight interval improvement. Patient is continued on daily hemodialysis. 10/11: Patient remains in intensive care unit on mechanical ventilation with tidal volume 325, FiO2 70, PEEP 14. She is currently being prone. She underwent hemodialysis this morning with removal of 4 L of fluid with plan to continue daily treatment. She is currently on Nimbex, fentanyl and propofol. No vasopressor at this time. Fecal management system remains in place. She is on tube feedings currently at hold due to prone positioning. Patient has been afebrile, heart rate 116, respiratory rate 36, blood pressure 100/58, pulse ox 93-96%. Repeat blood work reveals WBC 9.3, hemoglobin 8.1, platelet count 276. Sodium 136, potassium 4.3, chloride 103, CO2 20, BUN 20 creatinine 1.14. Blood sugars running between 133 and 202. 10/12: Patient remains in the intensive care unit. She is undergoing hemodial ysis this morning. She's been afebrile, heart rate in the 120s, respiratory rate 32, blood pressure 102/65. She is not on vasopressors. She is continued on Nimbex, fentanyl and propofol. Vent settings are currently tidal volume 325, FiO2 70, PEEP 14. Total platelet count 273. Sodium 133, potassium 4.7, chloride 100, CO2 19, BUN 21 creatinine 0.91. Blood sugars running between 121 and 143. 10/13: Patient remain in the ICU she is on hemodialysis daily, she is still on the vent with a PEEP of 14 and FiO2 of 70. Her oxygenation is marginal pulse rate still high. Patient had scratched cornea was seen in ophthalmology decided to keep doing eyedrops along with eye patch at this point. Prognosis still very bad this point. REVIEW OF SYSTEMS Unable to obtain due to mechanical ventilation. PHYSICAL EXAMINATION Gen: This is is a 35-year-old black female, patient is intubated and on mechanical ventilation, appears to be comfortable. HEENT: Head is atraumatic, normocephalic. Pupils equal, round. Sclerae is anicteric. Tracheostomy midline. NECK: Supple. No JVD. No lymphadenopathy. No thyromegaly. LUNGS: Coarse bilateral rhonchi. No intercostal retractions. HEART: Regular rate and rhythm. No murmur. ABDOMEN: Soft. Bowel sounds are present. No masses. No tenderness. Fecal management system in place. EXTREMITIES: Trace bilateral pedal edema. No calf tenderness. NEUROLOGICAL: Patient is sedated. ASSESSMENT AND PLAN 1. Acute hypoxic respiratory failure secondary to Covid 19 pneumonia and possible bacterial pneumonia. Patient remain in ICU intubated on trach and FiO2 of 70% PEEP of 14, prognosis still bad currently, chest x-ray still not. Patient still on a chronic hypoxic respiratory failure. 2. Sepsis and septic shock secondary to Covid 19 pneumonia with multiorgan failure. Continue as in #1. Doing slightly better currently. 3. Metabolic encephalopathy secondary to Covid 19 and DKA. 4. Acute kidney injury secondary to ATN with end-stage renal disease: On hemodialysis almost daily trying to remove more fluid. 5. acute gram-negative pneumonia versus MRSA pneumonia. Completed course of antibiotics. 6. Post trach and PEG tube: Patient will require long-term management if she survives this event so far. 7. Hypophosphatemia status post replacement. 8. Type 2 diabetes: Insulin patient had DKA on admission with A1c of 13.6 has been slightly better this point. 9. Sinus tachycardia secondary to sepsis, volume deficiency. 10. Acute kidney injury secondary to ATN secondary to Covid 19 and DKA. Continue daily hemodialysis. Permanent dialysis catheter placed. 11. Acute anemia: Iron deficiency and chronic disease, remain on iron along with iron infusion and still on Procrit. 12. Hypertension. Still metoprolol IV the patient is more hypotensive and was on vasopressors for on and off. 13. Morbid obesity with BMI of 53. 14. DVT prophylaxis. Lovenox. 15. GI prophylaxis. Protonix 40 mg IV push daily. CODE STATUS: Full code Prognosis poor. Objective - Vital Signs Vital signs: Vital Signs Temp 98.2 F 10/13/20 12:00 Pulse 123 H 10/13/20 13:00 Resp 35 H 10/13/20 13:00 BP 106/75 10/13/20 12:00 Pulse Ox 97 10/13/20 13:00 Intake & Output 10/12/20 10/13/20 10/13/20 18:59 06:59 18:59 Intake Total 3559.848 6197.127 516.438 Output Total 4000 Balance -2297.852 1916.127 516.438 Weight 115.8 kg 115.8 kg Intake: IV 280 260 138 0.9 Normal Saline @ KVO 240 220 120 0.9 Normal Saline 40 40 18 Pressure Bag Intake, IV Titration 1564.003 7534.127 278.438 Amount Cisatracurium 200 mg In 211.693 545.429 89.158 Sodium Chloride 0.9% 180 ml @ 1 MCG/KG/MIN 7.308 mls/hr IV .Q24H [facility] Rx#: [id number] fentaNYL (PF) 2,500 mcg 469.135 418.038 In Sodium Chloride 0.9% 200 ml @ Per Protocol IV .Q0M [facility] Rx#:[id number] propofoL 1,000 mg In 571.32 492.66 189.28 Empty Bag 1 bag @ Per Protocol IV .Q0M [facility] Rx#: [id number] Tube Feeding 100 110 70 Other 70 90 30 Output: Urine 0 Hemodialysis 4000 Other: Voiding Method Incontinent Incontinent ABP, PAP, CO, CI - Last Documented Arterial Blood Pressure 106/62 - Labs CBC & Chem 7: 10/13/20 04:10 10/13/20 04:10 Labs: Abnormal Lab Results - Last 24 Hours (Table) 10/12/20 10/13/20 10/13/20 Range/Units 17:51 04:10 04:10 WBC 14.2 H (3.8-10.6) k/uL RBC 2.97 L (3.80-5.40) m/uL Hgb 8.3 L (11.4-16.0) gm/dL Hct 26.4 L (34.0-46.0) % RDW 16.8 H (11.5-15.5) % Neutrophils # (Manual) 11.70 H (1.3-7.7) k/uL Eosinophils # (Manual) 0.85 H (0-0.7) k/uL Metamyelocytes # (Man) 0.14 H (0) k/uL Myelocytes # (Manual) 0.14 H (0) k/uL Nucleated RBCs 1 H (0-0) /100 WBC ABG pH (7.35-7.45) ABG pCO2 (35-45) mmHg ABG pO2 (83-108) mmHg ABG Total CO2 (19-24) mmol/L ABG O2 Saturation (94-97) % Sodium 134 L (137-145) mmol/L BUN 21 H (7-17) mg/dL POC Glucose (mg/dL) 115 H (75-99) mg/dL Total Protein 5.2 L (6.3-8.2) g/dL Albumin 2.4 L (3.5-5.0) g/dL 10/13/20 Range/Units 05:31 WBC (3.8-10.6) k/uL RBC (3.80-5.40) m/uL Hgb (11.4-16.0) gm/dL Hct (34.0-46.0) % RDW (11.5-15.5) % Neutrophils # (Manual) (1.3-7.7) k/uL Eosinophils # (Manual) (0-0.7) k/uL Metamyelocytes # (Man) (0) k/uL Myelocytes # (Manual) (0) k/uL Nucleated RBCs (0-0) /100 WBC ABG pH 7.26 L (7.35-7.45) ABG pCO2 56 H (35-45) mmHg ABG pO2 70 L (83-108) mmHg ABG Total CO2 27 H (19-24) mmol/L ABG O2 Saturation 91.6 L (94-97) % Sodium (137-145) mmol/L BUN (7-17) mg/dL POC Glucose (mg/dL) (75-99) mg/dL Total Protein (6.3-8.2) g/dL Albumin (3.5-5.0) g/dL
[2020-10-13 19:21] LABS: Glucose,Whole Blood 70 mg/dL (75-99)
[2020-10-13] MEDS ORDERED: DEXTROSE 50% SYRINGE 50 ML IVP ONE (21:19)
[2020-10-13 21:20] LABS: Glucose,Whole Blood 67 mg/dL (75-99)
[2020-10-13 22:26] LABS: Glucose,Whole Blood 89 mg/dL (75-99)
[2020-10-14] MEDS: CISATRACURIUM 200 MG in SODIUM CHLORIDE 0.9% 180 ML IV SCH ×7 (00:18→22:37)
[2020-10-14] MEDS: ARTIFICIAL TEARS-HYPROMELLOSE DROPS 15 ML BTL BOTH EYES SCH ×7 (00:19→23:59)
[2020-10-14] MEDS: INSULIN ASPART (NovoLOG) 100 UNIT/ML VIAL SQ SCH ×7 (00:19→23:58)
[2020-10-14 00:27] LABS: Glucose,Whole Blood 89 mg/dL (75-99)
[2020-10-14] MEDS: fentaNYL (PF) 2,500 MCG in SODIUM CHLORIDE 0.9% 200 ML IV SCH ×4 (01:43→21:48)
--- NOTE | 2020-10-14 04:45 | P.PN ---
Subjective Progress Note Date: 10/14/20 Principal diagnosis: Acute respiratory failure secondary to Covid 19 pneumonia. Patient was reevaluated today on 10/05/2020, remains in the ICU, intubated, mechanically ventilated, patient is doing worse today compared to the last few days, her chest x-ray is worsening, her O2 requirement is rising and she is back on the percent FiO2, I have also increased her PEEP to 16, assist control rate was increased to 52, FiO2 is on the percent. ABG earlier today on 70% FiO2 showed a pO2 of 56 pCO2 of 50 pH of 7.32. She was on assist control rate of 28 tidal volume of 400 FiO2 70% and PEEP of 14. Patient had to be placed on a higher dose of propofol which was increased to 70 fentanyl is at 2 mcg/kg/m, patient will be placed on Nimbex as I'm having difficulty oxygenating the pat ient in spite of high FiO2. She is scheduled to undergo hemodialysis again today, she had 4 L off yesterday. Remains on tube feeds using vital AF at 30 MLS per hour. Patient is tachycardic rate is 129, blood pressure is marginal 86/45, hence may recommend adding norepinephrine. The overall picture clearly showing deterioration in this patient's clinical status, and I have a feeling that this patient will continue to do poorly and she is now maximized on treatment. Again her chest x-ray is showing significant worsening of her infiltrates. Patient was reevaluated today on 10/06/2020, remains in the ICU, intubated and mechanically ventilated, and she is presently in prone position since last night for the next few hours until dialysis which is supposed to start sometime in the next couple of hours. Patient remains on assist control mode of mechanical ventilation, it is volume control with volume of 350 rate of 3 to FiO2 65%. 14. Her ABG showed a pO2 of 68 pCO2 of 52 pH of 7.28. Patient remains on propofol at 75 fentanyl at 3 mcg/kg/h she is also on norepinephrine at 0.02 and Nimbex at 3 mcg/kg/m. Patient is scheduled to have hemodialysis today. Chest x-ray continues to show evidence of bilateral interstitial infiltrates. Patient is on enteral feeding in the form of Nepro at 30/30. Patient has been proned now for the last 17 hours. Electrolytes are normal however her BUN is 30 creatinine 2.93. Blood sugar is 147 WBC count is 5.1 hemoglobin is 11.4. Patient remains on the COVID-19 cocktail. Remains on albuterol, Symbicort, Decadron 4 mg IV push daily, Lovenox 30 mg subcu daily. Insulin protocol. Her tonic 40 mg IV push daily. Off antibiotics. Patient was reevaluated today on 10/07/2020, remains in the ICU, intubated and mechanically ventilated, presently receiving hemodialysis. She is on assist control rate of 32, tidal volume of 350, FiO2 is up to on the percent today, and PEEP of 14. Higher PEEP did not seem to help much, hence I kept her on a PEEP of 14. ABG today showed a pO2 of 63 pCO2 53 pH of 7.25. A shunt is on Nimbex at 4 mcg/kg/m, fentanyl 3 mcg/kg/h, norepinephrine at 0.07 mcg/kg/m, propofol at 75 mcg/kg/m. Again the patient is receiving hemodialysis, and I have instructed the nurses today to go back into prone position after she is done with dialysis. Chest x-ray continues to show worsening interstitial infiltrates and ARDS pic ture. Labs were all reviewed. Her medications were all reviewed today. Basic metabolic profile is normal BUN is 26 creatinine 2.59. LDH is 955 and C- reactive protein is 22.1. Not much of a change in the last few days. Patient was reevaluated today on 10/08/2020, remains in the ICU, intubated and mechanically ventilated, patient is presently in prone position her ABG this morning showed significant improvement in her oxygenation, however continues to have a combined metabolic and respiratory acidosis. She is now on assist control of 350 rate of 36 FiO2 down to 60% PEEP at 14. ABG on 100% showed a pO2 of 209 pCO2 of 59 pH of 7.15. Her assist control rate was increased to 36. Kept her on the same tidal volume of 350. 2 A of bicarb were given. Patient is also on bicarb drip. Patient remains on propofol at 75 mcg/kg/m, she is on Nimbex at 4 mcg/kg/m, and norepinephrine at 0.01 mcg/kg/m. Patient is also on fentanyl at 3 mcg/kg per hour. During my evaluation, the patient was in prone position, however should be placed back in supine position once dialysis is ready and the patient will be dialyzed again today. Chest x-ray from yesterday continues to show evidence of interstitial edema and ARDS. No chest x-ray has been done yet today because the patient was in prone position. Patient remains on Decadron, remains on Lovenox, she is off antibiotics for now. CBC showed WBC 9.9 hemoglobin is 9.1. Hematocrit is 28.7. Electrodes are normal. BUN is 29 and creatinine 2.44. Bicarb is 20. LDH is up a bit 1026, C-reactive protein is about the same at 19.7. Progress note dated 10/09/2020. This is a 35-year-old black female with history of acute COVID 19 infection, with acute hypoxemic respiratory failure. She was admitted way back on September 10. Because of failure to wean from mechanical ventilation, she underwent tracheostomy and PEG tube placement on September 18. Currently remains on the ventilator. She is on the VC + (PRVC) modality, with a targeted tidal volume 350 and inspiratory time of 0.9 seconds. Her rate is set at 36. FiO2 70%, and PEEP of 14. On those settings, her arterial blood gases show a PaO2 of 72, pCO2 47, and pH 7.23. Currently, the patient's getting daily hemodialysis. Her drips including propofol at 75 mcg/kg/m, Nimbex at 3.5 mcg/kg/m, with [id number] monitoring, fentanyl at 3 g kilogram per hour, norepinephrine at 7 mcg/m, saline at 20 mL an hour, and vital 1.2 at 10 mL an hour, which is goal. White count 5.4, hemoglobin 9.2, hematocrit 28.8, and platelet count 217,000. Sodium 137, potassium 4.2, chlorides 108, CO2 19, anion gap 10, BUN 22, and creatinine 1.64. The patient's chest x-ray is consistent with bilateral infilt rates, and is essentially unchanged, and consistent with a diagnosis of coronavirus pneumonia. Progress note dated 10/10/2020. 35-year-old black female, with a history of COVID 19 infection and acute hypoxemic respiratory failure. She was admitted way back on September 10. Because of failure to wean from mechanical ventilation, she underwent tracheostomy and PEG tube placement on September 18. She remains on the mechanical ventilator. She is on the pressure regulated volume control modality. Her targeted tidal volume is 350 mL, and her inspiratory time 0.9 seconds. The patient's on 70% FiO2, PEEP o f 14, with a rate of 36. The patient is receiving Nimbex at 4.5 mcg/kg/m, propofol at 65 mcg/kg/m, norepinephrine at 3.5 mcg/m, fentanyl at 2.5 mcg/kg/h, and vital AF 1.2 at 10 mL an hour which is goal. The patient's blood gases from this morning show a PaO2 of 79, 5, and a pH is 7.29. Today's chest x-ray is currently still pending. Overnight, there've been no major changes in her condition. White count 7.8, hemoglobin 7.5, hematocrit 23.1, and platelet count 267,000. Sodium 139, potassium 3.9, chlorides 109, CO2 20, anion gap 10, BUN 20, with creatinine 1.29. Progress note dated 10/11/2020. 35-year-old black female with a history of COVID 19 infection and acute hypoxemic respiratory failure. She was admitted back on September 10. Because of failure to wean from mechanical ventilation, she underwent tracheostomy and PEG tube placement on September 18. She remains on the mechanical ventilator to this day. Currently, she is on pressure regulated [place] control, with a targeted tidal volume of 350, inspiratory time of 0.9 seconds, FiO2 70%, PEEP of 14, and a rate of 36. Her blood gases show a PaO2 of 74, pCO2 46, pH 7.28. In an attempt to reduce the FiO2, I was going to go up on the PEEP, but I was reminded that the patient has a issue with high airway pressures, potentially causing airway and alveolar trauma. For that reason, I will switch her to volume assist control modality, with a tidal volume at 325, rate 32, FiO2 70%, and PEEP of 14. This will cause permissive hypercapnic ventilation. I'm okay with this, and I will except a pH of 7.15 or higher. He blood gas will be done in one hour. The patient has daily hemodialysis. We will attempt to prone the patient for 16 hours today. She apparently does well with that modality. Currently, she is on saline at KVO, propofol at 65 mcg/kg/m, fentanyl at 2.5 mcg/kg/h, Nimbex at 3.5 mcg/kg/m, and norepinephrine has been weaned off. She is getting vital AF, at 10 mL an hour, which is goal. Over the last 3 days, since I've been seeing her, there is not been much in the way of progress. White count 9.3, hemoglobin 8.1, hematocrit 26.4, platelet count 276,000. Sodium 136, potassium 4.3, chlorides 103, CO2 20, anion gap 13, BUN and creatinine were 20 and 1.14. Chest x-ray today shows improvement of volume status. Progress note dated 10/12/2020. 35-year-old black female again seen in the intensive care unit, room 265. She has a history of coronavirus pneumonia with acute hypoxemic respiratory failure. She was admitted way back on September 10. She ended up with a tracheostomy and PEG tube placement on September 18 for failure to wean from mechanical ventilation. She remains on the ventilator. She is on volume assist control mode rate of 32, tidal volume 325, FiO2 70%, PEEP of 14. Arterial blood gases show pO2 of 54, pCO2 60, pH is 7.17. She's getting hemodialysis today. Peak airway pressures about 21 cm water. He is getting propofol at 75 mcg/kg/m, fentanyl at 3.5 mcg/kg/h, Nimbex at 7 mcg/kg/m, and saline at KVO. Her tube feeds include vital AF at 10 mL an hour, which is goal. She currently tested negative for coronavirus. She is getting hemodialysis today. Chest x-rays essentially unchanged. White count 10.4, he will May 0.1, hematocrit 25.9, platelet count 273,000. Sodium 133, potassium 4.7, chlorides 100, CO2 19, anion gap 14, BUN and creatinine were 21 and 0.91. This electrolyte profile consistent with an anion gap metabolic acidosis. Saturations currently are 95%. Medications are reviewed. Progress note dated 10/13/2020. 35-year-old black female, seen again in the ICU, room 265. She has a history of coronavirus pneumonia with acute hypoxemic respiratory failure. She was admitted to this hospital on the . She ended up with a tracheostomy and PEG tube being placed on September 18 for failure to wean from mechanical ventilation. She remains on mechanical ventilator. Currently, she is on the volume assist control mode, rate 32, tidal volume 325, FiO2 70%, PEEP of 14. Arterial blood gases show pO2 70, pCO2 of 56, and a pH is 7.26. The patient is currently also on Nimbex at 2.5 mcg/kg/m with train of 4 monitoring, propofol at 50 mcg/kg/m, and fentanyl at 2 mcg/kg/h. The patient's also getting vital AF and 10 mL an hour, which is goal. The patient's airway pressures today are a bit better. Her peak airway pressures are in the low 40s. While she was being prone yesterday, there was a significant cuff leak. Hence, she had be placed in the supine position. White count 14.2, hemoglobin 8.3, hematocrit 26.4, and platelet count 285,000. Sodium 134, potassium 4, chlorides 99, CO2 23, anion gap 12, BUN 21, and creatinine 0.70. Microbiology is all negative. Chest x-ray continues to show diffuse bilateral infiltrates. Progress note dated 10/14/2020. 35-year-old black female seen again in room 265. She has a history of coronavirus pneumonia with acute hypoxemic respiratory failure. She was admitted to the hospital on September 10. She ended up with a tracheostomy and PEG tube being placed on September 18 for failure to wean from mechanical ventilation. Roslyn oconnor remains on the ventilator. Currently, she is on volume assist control mode, rate 32, tidal volume 325, FiO2 70%, and PEEP of 14. She's receiving propofol 60 mcg/kg/m, fentanyl at 3 mcg/kg/h, and Nimbex at 7 mcg/kg/m. The patient is also receiving saline at 20 mL an hour. She's been on and off of norepinephrine area and currently is on hold. She is also receiving vital AF at 10 mL an hour which is goal. Laboratory data from today is not yet available. From October 13, white count 14.2, hemoglobin 8.3, and platelet count was normal. Also, blood gases from yesterday show pO2 70, pCO2 of 56, and pH is 7.26. Electrolytes are essentially within normal range. Chest x-ray from yesterday continues to show bilateral infiltrates, without much change. Objective - Vital Signs Vital signs: Vital Signs Temp 98.2 F 10/14/20 04:00 Pulse 112 H 06/12/21 04:30 Resp 32 H 10/14/20 04:30 BP 130/70 10/14/20 02:45 Pulse Ox 91 L 10/14/20 04:30 Intake & Output 10/13/20 10/13/20 10/14/20 06:59 18:59 06:59 Intake Total 9566.983 3658.186 1731.501 Output Total 4000 0 Balance 1916.127 -2753.814 1731.501 Weight 115.8 kg 115.8 kg Intake: IV 260 253 230 0.9 Normal Saline @ KVO 220 220 183 0.9 Normal Saline 40 33 47 Pressure Bag Intake, IV Titration 1456.127 619.386 1470.501 Amount Cisatracurium 200 mg In 545.429 193.906 541.284 Sodium Chloride 0.9% 180 ml @ 1 MCG/KG/MIN 7.308 mls/hr IV .Q24H [facility] Rx#: [id number] Norepinephrine 8 mg In 56.057 Sodium Chloride 0.9% 250 ml @ 0.05 MCG/KG/MIN 11. 204 mls/hr IV .Q23H2M [facility] Rx#:[id number] fentaNYL (PF) 2,500 mcg 418.038 250 250 In Sodium Chloride 0.9% 200 ml @ Per Protocol IV .Q0M [facility] Rx#:[id number] propofoL 1,000 mg In 492.66 389.28 464.16 Empty Bag 1 bag @ Per Protocol IV .Q0M [facility] Rx#: [id number] Tube Feeding 110 100 100 Other 90 60 90 Output: Urine 0 Hemodialysis 4000 Other: Voiding Method Incontinent Incontinent ABP, PAP, CO, CI - Last Documented Arterial Blood Pressure 121/84 - Exam No acute distress, sedated and paralyzed, with a midline tracheostomy tube. HEENT examination is grossly unremarkable. Neck supple. Full range of motion. No adenopathy thyromegaly or neck vein distention. Midline tracheostomy tube noted. Cardiovascular examination reveals regular rhythm rate. S1-S2 normal. No S3 or S4. No discernible murmur noted. Heart sounds are distant. Heart rate 112 beats per minute. Lungs reveal diffuse coarse rhonchi and bilateral crackles. No wheezes. Breath sounds equal bilaterally but diminished throughout. Saturations ranged from 91- 96%. Abdomen soft bowel sounds are heard. No masses or tenderness. PEG tube noted. Extremities are intact. No cyanosis clubbing or edema. Skin is without rash or lesion. Neurologic examination cannot be adequately assessed as the patient's currently sedated and paralyzed. - Labs CBC & Chem 7: 10/13/20 04:10 10/13/20 04:10 Labs: Abnormal Lab Results - Last 24 Hours (Table) 10/13/20 10/13/20 10/13/20 Range/Units 04:10 04:10 05:31 WBC 14.2 H (3.8-10.6) k/uL RBC 2.97 L (3.80-5.40) m/uL Hgb 8.3 L (11.4-16.0) gm/dL Hct 26.4 L (34.0-46.0) % RDW 16.8 H (11.5-15.5) % Neutrophils # (Manual) 11.70 H (1.3-7.7) k/uL Eosinophils # (Manual) 0.85 H (0-0.7) k/uL Metamyelocytes # (Man) 0.14 H (0) k/uL Myelocytes # (Manual) 0.14 H (0) k/uL Nucleated RBCs 1 H (0-0) /100 WBC ABG pH 7.26 L (7.35-7.45) ABG pCO2 56 H (35-45) mmHg ABG pO2 70 L (83-108) mmHg ABG Total CO2 27 H (19-24) mmol/L ABG O2 Saturation 91.6 L (94-97) % Sodium 134 L (137-145) mmol/L BUN 21 H (7-17) mg/dL POC Glucose (mg/dL) (75-99) mg/dL Total Protein 5.2 L (6.3-8.2) g/dL Albumin 2.4 L (3.5-5.0) g/dL 10/13/20 10/13/20 Range/Units 19:20 21:18 WBC (3.8-10.6) k/uL RBC (3.80-5.40) m/uL Hgb (11.4-16.0) gm/dL Hct (34.0-46.0) % RDW (11.5-15.5) % Neutrophils # (Manual) (1.3-7.7) k/uL Eosinophils # (Manual) (0-0.7) k/uL Metamyelocytes # (Man) (0) k/uL Myelocytes # (Manual) (0) k/uL Nucleated RBCs (0-0) /100 WBC ABG pH (7.35-7.45) ABG pCO2 (35-45) mmHg ABG pO2 (83-108) mmHg ABG Total CO2 (19-24) mmol/L ABG O2 Saturation (94-97) % Sodium (137-145) mmol/L BUN (7-17) mg/dL POC Glucose (mg/dL) 70 L 67 L (75-99) mg/dL Total Protein (6.3-8.2) g/dL Albumin (3.5-5.0) g/dL Assessment and Plan Assessment: Acute hypoxemic respiratory failure, secondary to COVID 19 pneumonia, with ARDS, with admission to hospital on September 10, transferred to ICU on the , intubation on September 11, and tracheostomy and PEG tube placement on September 18. Acute respiratory distress syndrome (ARDS). Acute kidney injury, currently on hemodialysis. Acute diabetic ketoacidosis, resolved. Sepsis, secondary to COVID 19 pneumonia. Anion gap metabolic acidosis. Poorly controlled type 2 diabetes. Elevated inflammatory markers secondary to coronavirus infection. History of essential hypertension. Generalized anxiety disorder. Morbid obesity. Plan: Plan dated 10/09/2020. The patient remains on the pressure regulated volume control mode of ventilati on. The patient is being nourished at goal. The patient remains on propofol, Nimbex, and fentanyl. In addition, the patient remains on norepinephrine. Labs, x-rays, and medications are all reviewed. Prognosis is very poor. We will continue to follow. Additional recommendations and suggestions are forthcoming. The patient remains on daily hemodialysis. Plan dated 10/10/2020. The patient remains about the same. She remains on the ventilator. The patient is status post tracheostomy and PEG tube placement. She remains sedated with propofol and fentanyl. She is also chemically paralyzed with Nimbex. She remains on norepinephrine at 8.5 mcg/m for low blood pressure. Cultures are all negative. She remains on periodic hemodialysis. Additional recommendations and suggestions are forthcoming. Diagnosis is guarded. We will continue to follow make recommendations where appropriate. Plan dated 10/11/2020. The patient remains on mechanical ventilator. We will attempt to prone the patient today for 16 hours, to improve oxygenation. In addition, the patient is switched from pressure regulated volume control modality to volume assist control. Settings include tidal volume at 325, rate 32, FiO2 70%, PEEP of 14. A repeat blood gas to be done in an hour. Additional recommendations and suggestions are forthcoming. The patient is currently undergoing daily hemodialysis. Prognosis remains very poor. We will continue to follow make recommendations where appropriate. Plan dated 10/12/2020. The patient remains on mechanical ventilator. We'll see for can wean down the Nimbex. This seems like a high-dose to me. He should be doing [id number] monitoring. The patient is receiving hemodialysis today. Saturations are 95 and 96%. Peak airway pressures 41 cm water. Additional recommendations and suggestions are forthcoming. Prognosis is very guarded. She is getting nutrition at goal. The patient does better in terms of her saturations, when she is in the prone position. Today we will place her in the prone position again. Plan dated 10/13/2020. The patient remains on mechanical ventilator. She did not do well yesterday with prone because of the tracheostomy cuff leak. Her airway pressures are a bit lower today. She remains on Nimbex, propofol, and fentanyl. She is getting nutrition at goal. Today's blood gases are reasonable. She's currently getting daily hemodialysis. We will continue to follow. Additional recommendations and suggestions are forthcoming. We'll attempt to get the paralysis off. No additional recommendations are made at this time. Plan dated 10/14/2020. The patient remains on mechanical ventilator. Essentially, she's been stable on propofol, fentanyl, and Nimbex. She remains on vital AF at goal. She's been on and off norepinephrine through the night. Labs and x-rays from today are still pending. Vent settings has not changed. We will continue to follow make recommendations where appropriate. Overall prognosis remains very guarded. Time with Patient: Greater than 30
[2020-10-14 04:54] LABS: African American GFR (CKD) >90 (>60 ml/min/1.73 sqM); Anion Gap 9 mmol/L; Blood Urea Nitrogen 19 mg/dL (7-17); Calcium 9.3 mg/dL (8.4-10.2); Carbon Dioxide 26 mmol/L (22-30); Chloride 103 mmol/L (98-107); Glucose 68 mg/dL (74-99); Non-African American GFR(CKD) 81 (>60 ml/min/1.73 sqM); Potassium 3.4 mmol/L (3.5-5.1); Sodium 138 mmol/L (137-145)
[2020-10-14 04:57] LABS: Anisocytosis Slight; HCT 26.2 % (34.0-46.0); HGB 7.8 gm/dL (11.4-16.0); Hypochromasia Marked; MCH 26.7 pg (25.0-35.0); MCHC 29.8 g/dL (31.0-37.0); MCV 89.4 fL (80.0-100.0); Mean Platelet Volume 8.5; Platelet Count 278 k/uL (150-450); Poikilocytosis Moderate; RBC 2.93 m/uL (3.80-5.40); RDW 17.2 % (11.5-15.5); WBC 12.4 k/uL (3.8-10.6)
[2020-10-14 05:03] LABS: ABG Base Excess -0.2 mmol/L; ABG HCO3 27 mmol/L (21-25); ABG Oxygen Saturation 89.5 % (94-97); ABG PCO2 57 mmHg (35-45); ABG PH 7.28 (7.35-7.45); ABG PO2 65 mmHg (83-108); ABG TCO2 28 mmol/L (19-24); Allen Test Performed? Yes
[2020-10-14] MEDS ORDERED: DEXTROSE 50% SYRINGE 50 ML IVP ONE (05:07)
[2020-10-14 05:14] LABS: Band Neutrophils % 29 %; Lymphocytes # (M) 0.87 k/uL (1.0-4.8); Metamyelocytes # (M) 0.62 k/uL (0); Metamyelocytes % 5 %; Monocytes # (M) 0.25 k/uL (0-1.0); Neutrophils % (M) 54 %; Nucleated Red Blood Cells 0 /100 WBC (0-0); Total Cells Counted 200
[2020-10-14 05:15] LABS: Anisocytosis (M) Present; Poikilocytosis (M) Present
[2020-10-14 05:16] LABS: Toxic Granulation Present; Toxic Vacuolation Present
[2020-10-14 05:42] LABS: Phosphorus 5.2 mg/dL (2.5-4.5)
[2020-10-14] MEDS ORDERED: POTASSIUM BICARBONATE/CIT AC 20 MEQ TABLET.EFF PO ONE (07:01)
[2020-10-14] MEDS: INSULIN DETEMIR (LEVEMIR) 100 UNIT/ML SYR SQ SCH (07:08)
[2020-10-14 07:12] LABS: Glucose,Whole Blood 110 mg/dL (75-99)
[2020-10-14] MEDS: SYMBICORT 160-4.5 MCG INHALER INHALATION SCH ×2 (07:33→19:27)
[2020-10-14] MEDS: ALBUTEROL HFA INHALER INHALATION SCH ×4 (07:33→19:27)
[2020-10-14] MEDS: SEVELAMER 800 MG TAB PO SCH ×3 (07:43→18:25)
[2020-10-14] MEDS: SODIUM BICARBONATE TAB 650 MG TAB PO SCH ×3 (07:47→21:50)
[2020-10-14] MEDS: CHOLECALCIFEROL 25 MCG (1000 IU) TABLET PO SCH (07:50)
[2020-10-14] MEDS: ASCORBIC ACID 500 MG TAB PO SCH ×2 (07:50→20:37)
[2020-10-14] MEDS: ZINC SULFATE 220 MG CAP PO SCH (07:56)
[2020-10-14] MEDS ORDERED: DEXTROSE 10% IN WATER 500 ML in EMPTY BAG 1 BAG IV SCH (08:00)
[2020-10-14 08:14] LABS: Glucose,Whole Blood 103 mg/dL (75-99)
--- NOTE | 2020-10-14 08:26 | P.PN ---
Subjective Patient is seen in follow-up for acute kidney injury. Was on Levophed overnight but currently off. Oliguric. Status post tracheostomy and PEG tube placement this admission. Receiving tube feeding. Currently on 70% FiO2. Blood sugars were low last night. Vital signs: Stable. General: The patient appeared well nourished and normally developed. HEENT: Tracheostomy noted. LUNGS: Breath sounds decreased. HEART: Regular rate and rhythm. Abdomen: Soft, no distention. EXTREMITITES: 1+ edema. Objective - Vital Signs Vital signs: Vital Signs Temp 97.8 F 10/14/20 08:00 Pulse 116 H 10/14/20 08:00 Resp 32 H 10/14/20 08:00 BP 141/71 10/14/20 08:00 Pulse Ox 90 L 10/14/20 08:00 Intake & Output 10/13/20 10/14/20 10/14/20 18:59 06:59 18:59 Intake Total 2844.829 4839.501 562.418 Output Total 4000 10 0 Balance -2753.814 1787.501 562.418 Weight 115.8 kg 116.5 kg Intake: IV 253 276 51 0.9 Normal Saline @ KVO 220 223 20 0.9 Normal Saline 33 53 6 Pressure Bag Dextrose 10% in Water 500 25 ml In Empty Bag 1 bag @ 25 mls/hr IV .Q20H [facility] Rx #:[id number] Intake, IV Titration 346.434 4418.501 431.418 Amount Cisatracurium 200 mg In 193.906 541.284 197.803 Sodium Chloride 0.9% 180 ml @ 1 MCG/KG/MIN 7.308 mls/hr IV .Q24H [facility] Rx#: [id number] Norepinephrine 8 mg In 56.057 Sodium Chloride 0.9% 250 ml @ 0.05 MCG/KG/MIN 11. 204 mls/hr IV .Q23H2M [facility] Rx#:[id number] fentaNYL (PF) 2,500 mcg 250 250 233.615 In Sodium Chloride 0.9% 200 ml @ Per Protocol IV .Q0M [facility] Rx#:[id number] propofoL 1,000 mg In 389.28 464.16 Empty Bag 1 bag @ Per Protocol IV .Q0M [facility] Rx#: [id number] Tube Feeding 100 120 20 Other 60 90 60 Output: Urine 0 0 Post Void Residual 10 Hemodialysis 4000 Other: Voiding Method Incontinent ABP, PAP, CO, CI - Last Documented Arterial Blood Pressure 115/82 - Labs CBC & Chem 7: 10/14/20 04:23 10/14/20 04:23 Labs: Abnormal Lab Results - Last 24 Hours (Table) 10/13/20 10/13/20 10/14/20 Range/Units 19:20 21:18 04:23 WBC 12.4 H (3.8-10.6) k/uL RBC 2.93 L (3.80-5.40) m/uL Hgb 7.8 L (11.4-16.0) gm/dL Hct 26.2 L (34.0-46.0) % MCHC 29.8 L (31.0-37.0) g/dL RDW 17.2 H (11.5-15.5) % Neutrophils # (Manual) 10.20 H (1.3-7.7) k/uL Lymphocytes # (Manual) 0.87 L (1.0-4.8) k/uL Metamyelocytes # (Man) 0.62 H (0) k/uL ABG pH (7.35-7.45) ABG pCO2 (35-45) mmHg ABG pO2 (83-108) mmHg ABG HCO3 (21-25) mmol/L ABG Total CO2 (19-24) mmol/L ABG O2 Saturation (94-97) % Potassium (3.5-5.1) mmol/L BUN (7-17) mg/dL Glucose (74-99) mg/dL POC Glucose (mg/dL) 70 L 67 L (75-99) mg/dL Phosphorus (2.5-4.5) mg/dL 10/14/20 10/14/20 10/14/20 Range/Units 04:23 04:23 04:58 WBC (3.8-10.6) k/uL RBC (3.80-5.40) m/uL Hgb (11.4-16.0) gm/dL Hct (34.0-46.0) % MCHC (31.0-37.0) g/dL RDW (11.5-15.5) % Neutrophils # (Manual) (1.3-7.7) k/uL Lymphocytes # (Manual) (1.0-4.8) k/uL Metamyelocytes # (Man) (0) k/uL ABG pH 7.28 L (7.35-7.45) ABG pCO2 57 H (35-45) mmHg ABG pO2 65 L (83-108) mmHg ABG HCO3 27 H (21-25) mmol/L ABG Total CO2 28 H (19-24) mmol/L ABG O2 Saturation 89.5 L (94-97) % Potassium 3.4 L (3.5-5.1) mmol/L BUN 19 H (7-17) mg/dL Glucose 68 L (74-99) mg/dL POC Glucose (mg/dL) (75-99) mg/dL Phosphorus 5.2 H (2.5-4.5) mg/dL 10/14/20 10/14/20 Range/Units 07:10 08:13 WBC (3.8-10.6) k/uL RBC (3.80-5.40) m/uL Hgb (11.4-16.0) gm/dL Hct (34.0-46.0) % MCHC (31.0-37.0) g/dL RDW (11.5-15.5) % Neutrophils # (Manual) (1.3-7.7) k/uL Lymphocytes # (Manual) (1.0-4.8) k/uL Metamyelocytes # (Man) (0) k/uL ABG pH (7.35-7.45) ABG pCO2 (35-45) mmHg ABG pO2 (83-108) mmHg ABG HCO3 (21-25) mmol/L ABG Total CO2 (19-24) mmol/L ABG O2 Saturation (94-97) % Potassium (3.5-5.1) mmol/L BUN (7-17) mg/dL Glucose (74-99) mg/dL POC Glucose (mg/dL) 110 H 103 H (75-99) mg/dL Phosphorus (2.5-4.5) mg/dL Assessment and Plan Plan: Assessment: 1. Acute kidney injury secondary to ATN secondary to COVID-19 and DKA. Baseline creatinine is near 1. Started on hemodialysis on September 14. Has p-cath. Oliguric. No hydronephrosis noted on kidney ultrasound. 2. DKA s/p insulin drip and IV fluids. 3. Acute hypoxic respiratory failure secondary to COVID-19 pneumonia. Status post tracheostomy this admission. 4. Metabolic acidosis secondary to acute kidney injury and DKA s/p bicarb drip. Maintained on oral bicarbonate. Expect further improvement postdialysis. 5. Hyponatremia, hypervolemic. Stable. Blood sugar stable. 6. Hyperphosphatemia secondary to acute kidney injury. Maintained on Renvela. 7. Anemia of chronic illness and kidney disease. Maintained on Aranesp. Iron deficiency noted - s/p iv iron. 8. Fluid overload. Improving with daily ultrafiltration. Plan: Continue with daily dialysis mostly for ultrafiltration. Maintain tube feeds. Now on D10 drip due to hypoglycemia. Potassium was replaced. Avoid nephrotoxins. Continue to monitor renal function and urine output. Monitor for renal recovery. Wean FiO2.
--- NOTE | 2020-10-14 08:28 | XR ---
EXAMINATION TYPE: XR chest 1V DATE OF EXAM: 10/14/2020 COMPARISON: 10/13/2020 HISTORY: 35-year-old female with pneumonia TECHNIQUE: Single frontal view of the chest is obtained. FINDINGS: Tracheostomy cannula. Right-sided double-lumen hemodialysis catheter with tips in the upper right atr ium. Right PICC tip at the mid SVC. Heart margins are obscured by adjacent pleural parenchymal opacit y. Diffuse bilateral airspace opacity persists. IMPRESSION: Continued severe diffuse bilateral airspace disease.
[2020-10-14] MEDS: DEXAMETHASONE SOD PHOSPHATE 4 MG/ML 1 ML VIAL IV SCH (08:42)
[2020-10-14] MEDS: PANTOPRAZOLE 40 MG/10 ML VIAL IVP SCH (08:43)
[2020-10-14] MEDS: ENOXAPARIN 40 MG/0.4 ML SYRINGE SQ SCH (08:43)
--- NOTE | 2020-10-14 09:48 | P.PN ---
Subjective Progress Note Date: 10/14/20 HISTORY OF PRESENT ILLNESS 35-year-old female patient of Dr. Arroyo with past medical history of type 2 diabetes comes in with acute shortness of breath associated with high light s ugars. Patient on admission was found to have a fever of 101.5 pulse rate 125 respiratory rate 20. Blood pressure 132/106. On chest x-ray obtained in the ER suggestive of bilateral infiltrates concerning for call with pneumonia. COVID PCR was positive. On admissions patient had an ABG with a pH of 7.14 pCO2 of 20, pO2 of 59, bicarb of 7. Patient's blood sugar on admission was 424 on assessment today patient's blood work patient had a sodium 135 potassium 5.4 chloride 123 bicarb less than 5 and creatinine 0.73. D-dimer was elevated on admission patient 9 28 patient given 1 L of IV fluids followed by normal saline running at 200 mL/h. Patient was positive for acetone on admission. She will anion gap closed and was switched to D5NS. Insulin drip was continued during the night and was switched to patient's home medication this morning. One dose of remdesiver was ordered. Apparently around noon, A- team was called on the patient secondary to hypoxia patient's oxygen saturation dropped to the 70s and 80s on 100% nonrebreather. Patient was switched to BiPAP on 18/12 and is doing better o FiO2 of 80%. ABG was obtained and ph was 7. 14 pCO2 of 28 bicarb of 7 pO2 of 17. Patient noted to have uncompensated metabolic acidosis with compensated respiratory alkalosis. Stat dose of 1 amp bicarb was given and followed by sodium bicarbonate drip. Insulin drip restarted. Patient's initiated on dexamethasone 6 mg IV twice a day. Potassium phosphate ordered as phosphorus is low. Patient's repeat blood gases suggest a pH of 7.25, CO2 32 pO2 of 72 bicarb 14. I will not normal saline at 100 mL/h as patient's anion gap has increased. Patient given 1 dose of 2 mg of morphine with improvement in respiratory rate. One dose of Ativan 0.5 mg was given. Xanax 0.25 twice a day along with Ativan 0.5 IV every 6 hours ordered for the patient. Vitals were evaluated patient pulse 129 [id number]. She was moved to the ICU. Precedex drip was initiated. Lopressor was initiated at 25 twice a day. Metoprolol tartrate 5 mg IV every 6 hours. Systolic blood pressure more than 160. Started chest x-ray was obtained and suggest stable bilateral consolidation suggestive of COVID-19 pneumonia. 09/12 patient is seen in the ICU is currently mechanically ventilated and sedated on vent settings of respiratory rate 36, tidal volume 375 FiO2 80% PEEP of 18.. Vital signs reviewed patient had a temp of 100.4 pulse 150 respiratory rate 36 oxygen saturation 95% on 80% on fio2 .'s labs are reviewed which patient had a d-dimer 1.84 that is increased to 14.3. Arterial Blood gas suggest ph 7.35, CO2 40, po2 62, . Her BMP suggest a sodium 135 potassium 3.7 chloride 112 bicarb 21 creatinine 1.57 for calcitonin is 3.5 CRP is increased from 8.78.2 LDH is increased to 2614. Patient remains on Pneumovax, propofol drip. Lovenox increased to 50 subcu twice a day. Patient received 2 L of IV fluids. Continue IV fluids at 100 mL/h. Bicarb drip discontinued patient initiated on Zosyn 3.375 every 8 hours. Continue insulin drip at 4 units per hour. Patient is currently in prone positioning 09/13: Patient evaluated in the ICU remains on Ventilation continues to be sedated, in prone position. Vent settings are respiratory rate 36, tidal vital 375, FiO2 70% PEEP of 18. ABG shows pO2 of 82, PCO2 of 39, pH is 7.19. Latest labs show WBC 11.1, hemoglobin 13.2, d-dimer still pending, but yesterday was up to 14.3. Creatinine up to 3.4, BUN 24 sodium 137, potassium 4.0. Patient's urine output has been low, nephrology on consult. Bicarb drip increased to 100 miles an hour, receiving another liter of normal saline, she did have a ultrasound that showed unremarkable bilateral kidneys. Repeat chest x-ray showed bilateral lung infiltrates that are stable. Anion gap has closed, will start Lantus 10 units at at bedtime Novolog every 6 hours. 09/14: Patient is seen in the ICU, still currently mechanically ventilated and sedated. She continues in the prone position. Her oxygen quickly drops if she is not in prone. Patient's kidney function has worsened. Laboratory values show creatinine of 4.87, BUN 33, LDH 2191, C-reactive protein 2.7. ABG shows pH 7.32, pO2 of 60, pCO2 43. Patient is making almost no urine overnight. Nephrology is following patient continues on cefepime for urinary tract infection, culture is still pending. Vascular has been consulted for placement of temporary hemodialysis catheter for plans for dialysis. 09/15: Patient evaluated in the ICU, continues to be mechanically ventilated and sedated on assist control ventilation rate of 36, tidal volume 375, FiO2 100% and PEEP of 18. ABG today shows pO2 58, pCO2 of 45, and pH 7.35. She continues on tube feedings. Yesterday patient underwent ultrasound-guided right internal jugular non-tunneled hemodialysis catheter placement. Patient underwent hemodialysis treatment last night and plans have another hemodialysis treatment today. She continues to make almost no urine. She continues on cefepime for antibiotic coverage, and continues on Decadron and Lovenox. 09/16: Patient seen on follow-up remains in the ICU mechanically ventilated and sedated. She continues on assist control rate of 36, tidal volume 375, FiO2 100% and PEEP of 20. PEEP had to be increased due to patient had to be in supine position for dialysis, will go back to prone position once dialysis is complete. ABG shows pH 7.32, pCO2 49, PaO2 61. Laboratory values showed WBC 11.2, hemoglobin 11, sodium 134, creatinine 4.44, BUN 38. Urine culture shows no growth, blood cultures show no growth to date. Repeat chest x-ray shows bilateral pleural effusions, correlate for ARDS, pulmonary edema, diffuse pneumonia, findings are stable from last exam. Patient does not require any pressors, blood pressure 133/57, heart rate 78. 5/16: Patient was evaluated in the ICU today for follow-up. She continues to be intubated and on mechanical ventilation. Current vent settings are tidal volume 375, FiO2 100% and PEEP of 20. ABG shows pH 7.37, pCO2 40, pO2 102. She continues with intermittent prone positioning. Patient continues to have almost no urine output, maintained on dialysis. Patient received dialysis yesterday without complication. Laboratory values revealed WBC 10.3, hemoglobin 10.4, sodium 132, potassium 3.1, BUN 33, creatinine 4.29, LDH 1913, C-reactive protein 1.3. Urine and sputum cultures are negative, blood cultures show no growth to date. Consult placed to dietary to start TPN[ ] 09/18: She remains in the intensive care unit intubated and on mechanical ventilation with tidal volume 375, FiO2 60 and PEEP of 20. Patient is being prone to daily at approximately 16 hours per day. Pulmonary medicine has added in Dr. Zhang to do PEG tube and trach today. Patient is not on vasopressors. Repeat blood work reveals WBC 12.6, hemoglobin 9.8, platelet count 212. Sodium 133, potassium 3.2, chloride 102, CO2 21, BUN 35 and creatinine 4.12. Blood sugar 126. Patient underwent hemodialysis yesterday with removal of 2 L and is scheduled again today with goal of 2-3 L and is scheduled again tomorrow. 09/19: She is scheduled for hemodialysis today and is off fentanyl temporarily. Patient is status post trach and PEG tube yesterday. And she remains on mechanical ventilation. Pulse ox 93-95%. She has been afebrile, heart rate 64, respiratory rate 36, blood pressure 115/50. Fentanyl is off to improve blood pressure for hemodialysis which is scheduled for today. Contacted vascular surgery about permanent hemodialysis catheter. Repeat blood work reveals WBC 14.3, hemoglobin 9.6, platelet count 200. D-dimer 6.48. LDH 1686. C-reactive protein 1.1. BUN 34 creatinine 3.81. Sodium 130, potassium 3.5, chloride 101, CO2 18. Blood sugars running between 101 198. Plan is to wean off Pneumovax today. Patient remains on insulin drip. Repeat chest x-ray reveals bilateral multifocal confluent opacities consistent with COVID-19. Some improved aeratio n periphery of the left lung and worsening opacities throughout the right lung. 09/20: She remains in the intensive care unit on mechanical ventilation. She has been afebrile, heart rate 65, respiratory rate 37, blood pressure 121/70, pulse ox 91-99%. Repeat blood work reveals WBC 14.5, hemoglobin 9.1, platelet count 216. D-dimer 6.13. Sodium 133, potassium 3.1, chloride 102, CO2 18, BUN 35 and creatinine 4.27. Blood sugars running between 128 and 143. LDH 1717. C- reactive protein 1.7. Patient remains on insulin drip which will be transitioned to NovoLog scale every 6 hours. Patient is scheduled for permanent hemodialysis catheter placement today with vascular surgery. Repeat chest x-ray reveals stable diffuse bilateral interstitial and airspace disease. Possible small right effusion. His work is following for transfer to half-way care facility. Do not anticipate discharge until next week. 09/21: Patient is undergoing hemodialysis. She remains on mechanical ventilation with tidal volume 375, FiO2 down to 45 and PEEP was decreased to 15. Patient is continued on propofol, fentanyl drips. She is on tube feedings at goal. Patient was taken off insulin drip yesterday and on scale only but blood sugars are running in the 200s, Levemir scheduled at bedtime will be added. Other blood work reveals WBC 13.3, hemoglobin 8.7, platelet count 192. Sodium 137, potassium 3.6, chloride 107, CO2 18, BUN 34 and creatinine 4.21. Repeat chest x-ray is stable. 09/22: She remains in the intensive care on mechanical ventilation with tidal volume 375, FiO2 of 50 and PEEP of 10. Pulse ox is running 96%. She is afebrile, heart rate in the 50s, respiratory rate 36, blood pressure 100/64. Repeat blood work reveals WBC 16.5, hemoglobin 8.9, platelet count 213. Sodium 134, potassium 3.7, chloride 103, CO2 21, BUN 34 and creatinine 3.89. Blood sugars running in the 200s to 324. Levemir increased to 16 units at bedtime and continue NovoLog scale every 6 hours. Patient is on tube feedings at goal. She has a Haley catheter in with a scant amount of dark/brown urine. Fecal management system is in place. Repeat chest x-ray reveals diffuse bilateral airspace infiltrates persist unchanged. Patient is scheduled for hemodialysis tomorrow morning on Friday. 09/23: Patient remains on mechanical ventilation with tidal volume 3.75, FiO2 50 and PEEP of 10. residential monitor sinus rhythm. She has no urine output. Fecal management system is in place. She is undergoing dialysis at this time with plan for removal of 2-1/2 L. She has been afebrile, heart rate in the 50s, respiratory rate 36, blood pressure 108/76 and pulse ox 89%. WBC 13.6, hemoglobin 9.1, platelet count 194. Sodium 136, potassium 3.0 and was replaced, chloride 106, CO2 21, BUN 49 creatinine 5.31. Blood sugars are running between 182 and this morning 194. Patient was still in the 200s and 300s. Levemir last evening was increased to 16 units. Patient remains on propofol and fentanyl drips. Lovenox was increased to 60 mg twice daily. 09/24: PEEP was increased today to 20, tidal volume is at 375 and FiO2 of 50%. Patient has been afebrile. She has been started on levo fed. Repeat chest x- ray reveals bilateral multifocal confluent opacities consistent with Covid 19 or ARDS redemonstrated. Nephrology will plan dialysis for tomorrow for 3 L. Patient remains on propofol fentanyl and Nimbex. WBC 12.5, hemoglobin 9.8, platelet count 161. D-dimer 13.3. Sodium 132, potassium 3.4, chloride 102, CO2 20, BUN 48 and creatinine 4.67. Blood sugars extremely elevated to 96-409. LDH 2217. 09/25: Patient remains in the intensive care unit on mechanical ventilation with tidal volume 375, FiO2 50 and PEEP of 20. Patient is afebrile, heart rate 61, respiratory rate 36, blood pressure 102/56, pulse ox 97%. Repeat blood work reveals WBC 9.3, hemoglobin 8.5 and platelet count 171. Sodium 130, potassium 3.7, chloride 100, CO2 20, BUN 61 creatinine 5.65. Blood sugars have been elev ated up to 455. Levemir increased to 20 units twice daily, NovoLog 5 units every 6 hours and continue NovoLog scale. Patient is scheduled for hemodialysis today. Repeat chest x-ray reveals bilateral multifocal and confluent opacities. Decadron and Lovenox dosing change by pulmonary. Patient is off norepinephrine. 09/26: Patient remains in the intensive care unit on mechanical ventilation with tidal volume 375, FiO2 50 and PEEP of 15. She has been afebrile, heart rate 91, blood pressure 114/68, pulse ox 99%. residential monitor sinus rhythm. 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 Sodium 134, potassium 3.6, chloride 102, CO2 22, BUN 41 creatinine 4.21. Patient has improved blood sugars this morning running 150s and 160s. Diabetic medications were adjusted yesterday. Patient is awake and alert and interacting. Yesterday, patient had PICC line inserted by interventional radiology. Repeat chest x-ray reveals diffuse airspace infiltrates in both lung ann appear to progress slightly in the interval. 09/27: Patient remains in intensive care unit on mechanical ventilation with improvement of settings with tidal volume 375, FiO2 decreased to 40 and PEEP decreased to 10. Patient is on hemodialysis every other day and plan to remove 3 L today. Patient is more awake and alert. She is slow to respond but is able to follow simple commands. Blood sugars are running between 84 and 123. Repeat blood work reveals WBC 7.1, hemoglobin 8.1, platelets 152. Sodium 135, potassium 3.6, chloride 103, CO2 21, BUN 53 and creatinine 5.88. Repeat chest x-ray revealed cardiomegaly and pulmonary edema. Patient is on tube feedings:. Patient is not require vasopressors and is off sedation. Fecal management system remains in place for brown liquid stool. C. difficile was negative. 09/28: Patient remains on mechanical ventilation with tidal volume 375, FiO2 increased to 80 and PEEP increased to 18. Patient had a rough night was very anxious, no pain. Xanax 0.25 mg 3 times daily was added. There is concern for pulmonary embolism for which patient was started on heparin drip, she is unable to undergo CAT scan. Venous Doppler bilateral lower extremities was nondiagnostic due to extensive edema in obese patient but minimal imaging of the popliteal veins does show flow. Repeat echocardiogram has been ordered. Cefepime has also been ordered at 1 g IV piggyback every 24 hours as well as vancomycin, pharmacy dosing. Patient is back on fentanyl drip, propofol drip and norepinephrine. Blood sugars are elevated and insulin Levemir will be i ncreased to 25 mg twice daily. Ferrlecit infusion has been ordered by nephrology for 4 days. Patient is undergoing hemodialysis today.temperature max 100.2, heart rate 134, respiratory rate 34, blood pressure 120/65, pulse ox 94%. residential monitor is sinus tachycardia. Repeat blood work reveals WBC 16.9, hemoglobin 9.7, platelet count 216. D-dimer 8.81. Sodium 134, potassium 3.8, chloride 99, CO2 25, BUN 43 and creatinine 5.36. Blood sugars in the 200s. AST 40. 09/29 Patient had declined more last 48 hours require more sedation, patient is doing hemodialysis, respiratory failure is quite bit worse this time. Patient was inquired the pain is well back on fentanyl drip. Her vent set up with PEEP is limited but higher. No new finding on culture and her chest x-ray continues shows diffuse infiltrate persistent although there is a moderate interval improvement. 09/30 patient's was seen and evaluated. PEEP was reduced to 11 as patient is maintaining good saturation at the current vent settings. 10/01 patient was seen at bedside. She is currently on assist control rate of 28 white tidal volume 350 FiO2 50% and PEEP of 10 which has been reduced by pulmonary as patient name cleaning her oxygen saturation. Arm blood gas was obtained with a pH of 7.35 pCO2 37 pO2 of 63. She remains hemodynamically stable with no need for pressors. Labs were reviewed patient's BUN is 29 crea tinine 3.93 glucose 122 albumin 2.2 sodium 131 chloride 19 hemoglobin is downtrending with a Hb of 7.3 no leukocytosis 7.1. Patient's urine output is minimal at this time. Her rate has increased to 129 and is currently on positive fluid balance even with dialysis. Last dialysis was done yesterday. Continue enteral feeding currently at goal. Antibiotic has been discontinued and continues to remain on DEXA methicillin 4 mg IV daily. 10/02 patient continues to be on trach support with mechanical ventilation. Patient was evaluated by agile scrum master and was switched to VC control as patient was noted to be double stacking on and off throughout the night. Respiratory rate continue to 28 tidal volume increased to 400 with a PEEP for Dr. Downey. Patient is maintaining oxygen saturation 91% on the current setting. According to the nurse bedside patient saturation drops significantly or she is moved or her sedation is dropped. Patient is currently on propofol drip, fentanyl drip. She did underwent dialysis today and was able to maintain her low pressure without the need of pressors. Labs reviewed today suggest a WBC of 6.7 hemoglobin of 7.0 and d-dimer 3.9 bicarb 17 BUN 38 creatinine 4.8. LDH is 964. Sodium 1:30 likely secondary to volume overload. Urine sodium and urine osmolality ordered. Patient's glucose this morning is 146. Continue to remain on enteral feeding. Urine output is reduced. Fall catheter will be placed today. Continue to remain on dialysis. 10/03: Patient remains on mechanical ventilation and is back on propofol and fentanyl drips. Patient is currently on VC control with tidal volume 400, FiO2 55 and PEEP of 12. Patient still is not making any urine and is dialysis dependent with next treatment planned for tomorrow with removal of 3-3-1/2 L. PEG tube feedings are at goal. Fecal management system remains in place. At the time of evaluation, patient is off levophed. Repeat chest x-ray reveals stable diffuse bilateral airspace disease correlate for ARDS, pulmonary edema or diffuse pneumonia. Temperature max last evening was 101. Temperature currently 99, heart rate 106, respiratory rate 32, blood pressure 101/50, pulse ox 86%. Repeat blood work reveals WBC 6, hemoglobin 7.4, platelet count 160. D-dimer 4.05. Sodium 133, potassium 3.5, chloride 100, CO2 23, BUN 31 creatinine 3.8. Blood sugars are running between 100 and 170. Ferritin 1514. Liver function test normal. LDH 1016, C-reactive protein 13.6. Prognosis remains guarded. 10/04: Patient remains intubated on mechanical ventilation with tidal volume 400, FiO2 65, PEEP of 14. Patient continues to run fevers and repeat blood culture and urine and urine culture ordered for today. Haley catheter has been removed this patient has no significant urine output at about 20 mL per shift. BladderScan is monitored for greater than 300 and the patient is straight cathed. Hemoglobin is 6.8 and she has been ordered 41 unit of packed RBCs today. She is currently on propofol and fentanyl drips. She is scheduled for hemodialysis today. WBC 4.5, hemoglobin 6.8, platelet count 151. D-dimer 3.28. Sodium 132, potassium 4.1, chloride 100, CO2 22, BUN 37 creatinine 4.74. Blood sugars running between 97 and 110. Ferritin 1801. LDH 859. C-reactive protein 14.4. Chest x-ray reveals correlate for pneumonia, edema, ARDS. Prognosis remains guarded. 10/05: Patient remains in intensive care unit currently on mechanical ventilation with tidal volume 400, FiO2 was increased to 100 and PEEP is at 14. She continues to run fevers which have worsened with temperature max 103.1. She has been tachycardic in the 130s, blood pressure is marginal but not on vasopressors. Pulse ox currently 92%. Repeat blood work reveals WBC 5.5, hemoglobin 7.6, platelet count 190. D-dimer 2.7, ferritin 1770, LDH 932, C- reactive protein 21.4. Blood sugars are running between 100 1669. Electrolytes are normal. BUN 27 and creatinine 3.79. Pancultures were done yesterday including a straight cath for urine culture, sputum culture and blood culture. Arterial line was removed as well as midline. She is currently on propofol, fen tanyl and started on Nimbex today. 10/06: Patient remains in the intensive care unit. Today patient in prone position and remains on mechanical ventilation with tidal volume 350, FiO2 65 and PEEP of 14. Her last documented fever was yesterday at 2 PM. Heart rate is in the 120s, respiratory rate 32, pulse ox 88-92%. CBC is unremarkable. Electrolytes are normal. BUN 30 creatinine 2.93. Blood sugars are running between 135 and 164. Cultures from October 04: Blood culture no growth, sputum culture finalized, urine culture finalized. Catheter tip culture is in process. Repeat chest x-ray shows bilateral interstitial infiltrates. Patient is on tube feedings of Nepro at goal of 30 ML's per hour. Patient underwent dialysis yesterday and is scheduled for repeat dialysis today. 10/07: Patient maintains in the intensive care unit intubated and on mechanical ventilation. She is receiving hemodialysis this morning has been every day. Plan is to remove 2-1/2 L today. Vent settings have changed today with tidal volume 350, FiO2 was increased to 100% and PEEP remains at 14. She has been continued on Nimbex, fentanyl, norepinephrine and propofol. Plan is to prone position patient following dialysis. Repeat chest x-ray reveals worsening interstitial infiltrates. BUN is 26 and creatinine 2.59. LDH 955, C-reactive protein 22.1. Prognosis remains poor. 10/08: Patient remains in intensive care unit intubated and on mechanical ventilation with tidal volume 350, FiO2 60, PEEP of 14. She is pronating today. She is scheduled for hemodialysis on a daily basis. She has been afebrile, heart rate 112, respiratory rate 36, blood pressure 161/88, pulse ox 93%. Repeat blood work reveals WBC 9.9, hemoglobin 9.1, platelet count 320. Sodium 133, potassium 5.3, chloride 100, CO2 20, BUN 29 creatinine 2.44. Blood sugar running between 102 and 139. LDH 1026, C-reactive protein 19.7. 10/09: Patient is undergoing dialysis this morning. She continues to be intubated and on mechanical ventilation with tidal volume 350, 270 and PEEP of 14. Patient is also on propofol, Nimbex, norepinephrine and fentanyl drips. Repeat chest x-ray reveals persistent bilateral multifocal and confluent opacities consistent with Covid 19. She is afebrile, heart rate 116, respiratory rate 36, blood pressure 120/65, pulse ox 91%. Repeat blood work reveals WBC 5.4, hemoglobin 9.2, platelet count 216. D-dimer 2.67, ferritin 2568, LDH 794, C- reactive protein 13.9. Blood sugars have been running 90-104. Creatinine 1.64. She is on daily dialysis treatment. 10/10: She remains in the intensive care unit. She is now out of isolation as a repeat Covid test came back negative. She remains on mechanical ventilation with tidal volume 350, FiO2 70 and PEEP of 14. Patient is also on Nimbex, propofol, norepinephrine, fentanyl drips. She is on PEG tube feedings at goal and tolerating well. Repeat blood work reveals WBC 7.8, hemoglobin 7.5, platelet count 267. Sodium 139, potassium 3.9, chloride 109, CO2 20, BUN 20 creatinine 1.29. Blood sugars are running between 76 and 102. Scheduled Aiyana Log decreased to 3 units. Repeat chest x-ray reveals moderate cardiomegaly and continued pulmonary edema. Slight interval improvement. Patient is continued on daily hemodialysis. 10/11: Patient remains in intensive care unit on mechanical ventilation with tidal volume 325, FiO2 70, PEEP 14. She is currently being prone. She underwent hemodialysis this morning with removal of 4 L of fluid with plan to continue daily treatment. She is currently on Nimbex, fentanyl and propofol. No vasopressor at this time. Fecal management system remains in place. She is on tube feedings currently at hold due to prone positioning. Patient has been afebrile, heart rate 116, respiratory rate 36, blood pressure 100/58, pulse ox 93-96%. Repeat blood work reveals WBC 9.3, hemoglobin 8.1, platelet count 276. Sodium 136, potassium 4.3, chloride 103, CO2 20, BUN 20 creatinine 1.14. Blood sugars running between 133 and 202. 10/12: Patient remains in the intensive care unit. She is undergoing hemodialy sis this morning. She's been afebrile, heart rate in the 120s, respiratory rate 32, blood pressure 102/65. She is not on vasopressors. She is continued on Nimbex, fentanyl and propofol. Vent settings are currently tidal volume 325, FiO2 70, PEEP 14. Total platelet count 273. Sodium 133, potassium 4.7, chloride 100, CO2 19, BUN 21 creatinine 0.91. Blood sugars running between 121 and 143. 10/13: Patient remain in the ICU she is on hemodialysis daily, she is still on the vent with a PEEP of 14 and FiO2 of 70. Her oxygenation is marginal pulse rate still high. Patient had scratched cornea was seen in ophthalmology decided to keep doing eyedrops along with eye patch at this point. Prognosis still very bad this point. 10/14: She remains on mechanical ventilation with tidal volume 325, FiO2 70% and PEEP of 14. She did require label fed last evening for about 6 hours. She did not tolerate pronating yesterday. She is undergoing dialysis this morning with plan for removal of 4 L. Blood sugars have been low and IV fluids changed to D10 until blood sugars have recovered. Levemir and scheduled NovoLog discontinued. Patient is on tube feedings at goal there's been no change in th is. REVIEW OF SYSTEMS Unable to obtain due to mechanical ventilation. PHYSICAL EXAMINATION Gen: This is is a 35-year-old black female, patient is intubated and on mechanical ventilation, appears to be comfortable. HEENT: Head is atraumatic, normocephalic. Pupils equal, round. Sclerae is anicteric. Tracheostomy midline. NECK: Supple. No JVD. No lymphadenopathy. No thyromegaly. LUNGS: Coarse bilateral rhonchi. No intercostal retractions. HEART: Regular rate and rhythm. No murmur. ABDOMEN: Soft. Bowel sounds are present. No masses. No tenderness. Fecal management system in place. EXTREMITIES: Trace bilateral pedal edema. No calf tenderness. NEUROLOGICAL: Patient is sedated. ASSESSMENT AND PLAN 1. Acute hypoxic respiratory failure secondary to Covid 19 pneumonia and possible bacterial pneumonia. Patient was intubated on September 11. She is status post 1 dose of Remdesivir and 1 dose of Tocilizumab. Continue Ventolin inhaler 4 times daily, Symbicort twice daily, Decadron 4 mg IV daily, Lovenox 30 mg s ubcu daily, supplements. Status post PEG tube and trach. Isolation precautions at been removed. Prone positioning held. 2. Acute diabetic ketoacidosis secondary to Covid 19 pneumonia, uncontrolled with hyperglycemia. Levemir and scheduled NovoLog discontinued due to hypoglycemia, continue NovoLog scale. Once blood sugars recover, D10 IV fluids to be discontinued. 3. Metabolic encephalopathy secondary to Covid 19 and DKA. 4. Sepsis and septic shock secondary to Covid 19 pneumonia with multiorgan failure. Continue as in #1. 5. Acute metabolic acidosis secondary to acute DKA, Covid 19 and acute kidney injury. Sodium bicarb 650 mg 3 times daily. 6. Diabetes mellitus type 2 uncontrolled with A1c 13.6. Continue as above. 7. Hypophosphatemia status post replacement. 8. Hyperkalemia secondary to DKA, resolved. 9. Sinus tachycardia secondary to sepsis, volume deficiency. 10. Acute kidney injury secondary to ATN secondary to Covid 19 and DKA. Continue daily hemodialysis. Permanent dialysis catheter placed. 11. Possible acute gram-negative pneumonia versus MRSA pneumonia. Completed course of antibiotics. 12. Hypertension. 13. Morbid obesity with BMI of 53. 14. DVT prophylaxis. Lovenox. 15. GI prophylaxis. Protonix 40 mg IV push daily. CODE STATUS: Full code Prognosis poor. DISCHARGE PLAN [employer] Acute Care Impression and plan of care have been directed as dictated by the signing physician. Kimberly Boswell nurse practitioner acting as scribe for signing physician. Objective - Vital Signs Vital signs: Vital Signs Temp 97.8 F 10/14/20 08:00 Pulse 108 H 10/14/20 09:00 Resp 32 H 10/14/20 09:00 BP 134/92 10/14/20 09:00 Pulse Ox 92 L 10/14/20 09:00 Intake & Output 10/13/20 10/14/20 10/14/20 18:59 06:59 18:59 Intake Total 7413.855 5975.501 600.418 Output Total 4000 10 0 Balance -2753.814 1887.501 600.418 Weight 115.8 kg 116.5 kg Intake: IV 253 276 79 0.9 Normal Saline @ KVO 220 223 20 0.9 Normal Saline 33 53 9 Pressure Bag Dextrose 10% in Water 500 50 ml In Empty Bag 1 bag @ 25 mls/hr IV .Q20H [facility] Rx #:[id number] Intake, IV Titration 551.687 5946.501 431.418 Amount Cisatracurium 200 mg In 193.906 541.284 197.803 Sodium Chloride 0.9% 180 ml @ 1 MCG/KG/MIN 7.308 mls/hr IV .Q24H [facility] Rx#: [id number] Norepinephrine 8 mg In 56.057 Sodium Chloride 0.9% 250 ml @ 0.05 MCG/KG/MIN 11. 204 mls/hr IV .Q23H2M [facility] Rx#:[id number] fentaNYL (PF) 2,500 mcg 250 250 233.615 In Sodium Chloride 0.9% 200 ml @ Per Protocol IV .Q0M [facility] Rx#:[id number] propofoL 1,000 mg In 389.28 564.16 Empty Bag 1 bag @ Per Protocol IV .Q0M [facility] Rx#: [id number] Tube Feeding 100 120 30 Other 60 90 60 Output: Urine 0 0 Post Void Residual 10 Hemodialysis 4000 Other: Voiding Method Incontinent ABP, PAP, CO, CI - Last Documented Arterial Blood Pressure 123/85 - Labs CBC & Chem 7: 10/14/20 04:23 10/14/20 04:23 Labs: Abnormal Lab Results - Last 24 Hours (Table) 10/13/20 10/13/20 10/14/20 Range/Units 19:20 21:18 04:23 WBC 12.4 H (3.8-10.6) k/uL RBC 2.93 L (3.80-5.40) m/uL Hgb 7.8 L (11.4-16.0) gm/dL Hct 26.2 L (34.0-46.0) % MCHC 29.8 L (31.0-37.0) g/dL RDW 17.2 H (11.5-15.5) % Neutrophils # (Manual) 10.20 H (1.3-7.7) k/uL Lymphocytes # (Manual) 0.87 L (1.0-4.8) k/uL Metamyelocytes # (Man) 0.62 H (0) k/uL ABG pH (7.35-7.45) ABG pCO2 (35-45) mmHg ABG pO2 (83-108) mmHg ABG HCO3 (21-25) mmol/L ABG Total CO2 (19-24) mmol/L ABG O2 Saturation (94-97) % Potassium (3.5-5.1) mmol/L BUN (7-17) mg/dL Glucose (74-99) mg/dL POC Glucose (mg/dL) 70 L 67 L (75-99) mg/dL Phosphorus (2.5-4.5) mg/dL 10/14/20 10/14/20 10/14/20 Range/Units 04:23 04:23 04:58 WBC (3.8-10.6) k/uL RBC (3.80-5.40) m/uL Hgb (11.4-16.0) gm/dL Hct (34.0-46.0) % MCHC (31.0-37.0) g/dL RDW (11.5-15.5) % Neutrophils # (Manual) (1.3-7.7) k/uL Lymphocytes # (Manual) (1.0-4.8) k/uL Metamyelocytes # (Man) (0) k/uL ABG pH 7.28 L (7.35-7.45) ABG pCO2 57 H (35-45) mmHg ABG pO2 65 L (83-108) mmHg ABG HCO3 27 H (21-25) mmol/L ABG Total CO2 28 H (19-24) mmol/L ABG O2 Saturation 89.5 L (94-97) % Potassium 3.4 L (3.5-5.1) mmol/L BUN 19 H (7-17) mg/dL Glucose 68 L (74-99) mg/dL POC Glucose (mg/dL) (75-99) mg/dL Phosphorus 5.2 H (2.5-4.5) mg/dL 10/14/20 10/14/20 Range/Units 07:10 08:13 WBC (3.8-10.6) k/uL RBC (3.80-5.40) m/uL Hgb (11.4-16.0) gm/dL Hct (34.0-46.0) % MCHC (31.0-37.0) g/dL RDW (11.5-15.5) % Neutrophils # (Manual) (1.3-7.7) k/uL Lymphocytes # (Manual) (1.0-4.8) k/uL Metamyelocytes # (Man) (0) k/uL ABG pH (7.35-7.45) ABG pCO2 (35-45) mmHg ABG pO2 (83-108) mmHg ABG HCO3 (21-25) mmol/L ABG Total CO2 (19-24) mmol/L ABG O2 Saturation (94-97) % Potassium (3.5-5.1) mmol/L BUN (7-17) mg/dL Glucose (74-99) mg/dL POC Glucose (mg/dL) 110 H 103 H (75-99) mg/dL Phosphorus (2.5-4.5) mg/dL
[2020-10-14 11:26] LABS: Glucose,Whole Blood 130 mg/dL (75-99)
[2020-10-14] MEDS: SODIUM CHLORIDE 0.9% 500 ML 500 ML IV SCH (11:41)
[2020-10-14 14:30] LABS: Glucose,Whole Blood 142 mg/dL (75-99)
[2020-10-14] MEDS ORDERED: CISATRACURIUM 2 MG/ML 5 ML VIAL IV ONE ×2 (16:25→16:26)
[2020-10-14 18:22] LABS: Glucose,Whole Blood 152 mg/dL (75-99)
[2020-10-14 18:28] LABS: Glucose,Whole Blood 143 mg/dL (75-99)
--- NOTE | 2020-10-14 19:52 | XR ---
EXAMINATION TYPE: XR chest 1V portable DATE OF EXAM: 10/14/2020 COMPARISON: Today HISTORY: Hypoxemia TECHNIQUE: FINDINGS: Heart is enlarged. There is pulmonary interstitial and airspace edema. There is tracheostom y tube. There is right central venous catheter with tip in the superior cava. There are chest leads. There is a second right central venous catheter with tip in the superior vena cava. IMPRESSION: Pulmonary edema is slightly improved compared to exam this morning.
[2020-10-14 23:58] LABS: Glucose,Whole Blood 203 mg/dL (75-99)
[2020-10-15] MEDS: CISATRACURIUM 200 MG in SODIUM CHLORIDE 0.9% 180 ML IV SCH ×3 (01:56→08:42)
[2020-10-15] MEDS: fentaNYL (PF) 2,500 MCG in SODIUM CHLORIDE 0.9% 200 ML IV SCH ×3 (03:41→20:31)
[2020-10-15 03:59] LABS: Anisocytosis Slight; HCT 26.4 % (34.0-46.0); HGB 8.5 gm/dL (11.4-16.0); Hypochromasia Marked; MCV 90.6 fL (80.0-100.0); Mean Platelet Volume 8.8; Platelet Count 367 k/uL (150-450); Poikilocytosis Moderate; RBC 2.92 m/uL (3.80-5.40); RDW 17.1 % (11.5-15.5); WBC 33.9 k/uL (3.8-10.6)
[2020-10-15 04:08] LABS: Calcium 9.3 mg/dL (8.4-10.2); Magnesium 1.9 mg/dL (1.6-2.3); Phosphorus 6.9 mg/dL (2.5-4.5)
[2020-10-15 04:12] LABS: Potassium 4.5 mmol/L (3.5-5.1)
[2020-10-15] MEDS: ARTIFICIAL TEARS-HYPROMELLOSE DROPS 15 ML BTL BOTH EYES SCH ×5 (04:23→21:52)
[2020-10-15 05:12] LABS: ABG Base Excess -7.4 mmol/L; ABG HCO3 21 mmol/L (21-25); ABG Oxygen Saturation 92.3 % (94-97); ABG PCO2 61 mmHg (35-45); ABG PO2 80 mmHg (83-108); ABG TCO2 23 mmol/L (19-24); Allen Test Performed? Yes
[2020-10-15 05:14] LABS: ABG PH 7.15 (7.35-7.45)
[2020-10-15 05:21] LABS: Band Neutrophils % 34 %; Eosinophils # (M) 0.68 k/uL (0-0.7); Metamyelocytes # (M) 0.34 k/uL (0); Metamyelocytes % 1 %; Monocytes # (M) 0.68 k/uL (0-1.0); Myelocytes # (M) 0.34 k/uL (0); Myelocytes % 1 %; Neutrophils % (M) 57 %; Nucleated Red Blood Cells 0 /100 WBC (0-0); Polychromasia Present; Total Cells Counted 200
[2020-10-15 05:23] LABS: Tear Drop Cells Present
[2020-10-15 05:25] LABS: Large Platelets Present
[2020-10-15 05:26] LABS: Toxic Vacuolation Present
[2020-10-15] MEDS: INSULIN ASPART (NovoLOG) 100 UNIT/ML VIAL SQ SCH ×3 (06:44→17:58)
[2020-10-15] MEDS: NOREPINEPHRINE 8 MG in SODIUM CHLORIDE 0.9% 250 ML IV SCH (07:17)
[2020-10-15] MEDS: ALBUTEROL HFA INHALER INHALATION SCH ×4 (07:28→20:23)
[2020-10-15] MEDS: SYMBICORT 160-4.5 MCG INHALER INHALATION SCH ×2 (07:28→20:43)
--- NOTE | 2020-10-15 08:35 | XR ---
EXAMINATION TYPE: XR chest 1V DATE OF EXAM: 10/15/2020 COMPARISON: 10/14/2020 HISTORY: 35-year-old female pneumonia TECHNIQUE: Single frontal view of the chest is obtained. FINDINGS: Tracheostomy cannula. Right-sided double-lumen hemodialysis catheter with tips at the lower SVC. Righ t PICC tip mid SVC. Diffuse bilateral interstitial and patchy and confluent airspace opacities persis t without significant change. Heart borderline in size. IMPRESSION: Continued diffuse bilateral airspace disease.
[2020-10-15] MEDS: CHOLECALCIFEROL 25 MCG (1000 IU) TABLET PO SCH (08:40)
[2020-10-15] MEDS: DEXAMETHASONE SOD PHOSPHATE 4 MG/ML 1 ML VIAL IV SCH (08:40)
[2020-10-15] MEDS: SEVELAMER 800 MG TAB PO SCH ×3 (08:40→17:58)
[2020-10-15] MEDS: ASCORBIC ACID 500 MG TAB PO SCH ×2 (08:40→21:48)
[2020-10-15] MEDS: PANTOPRAZOLE 40 MG/10 ML VIAL IVP SCH (08:40)
[2020-10-15] MEDS: SODIUM BICARBONATE TAB 650 MG TAB PO SCH ×3 (08:40→21:48)
[2020-10-15] MEDS: ENOXAPARIN 40 MG/0.4 ML SYRINGE SQ SCH (08:40)
[2020-10-15] MEDS: ZINC SULFATE 220 MG CAP PO SCH (08:40)
[2020-10-15] MEDS: SODIUM CHLORIDE 0.9% 500 ML 500 ML IV SCH (08:41)
--- NOTE | 2020-10-15 08:45 | P.PN ---
Subjective Patient is seen in follow-up for acute kidney injury. Back on Levophed. Oliguric. Status post tracheostomy and PEG tube placement this admission. Receiving tube feeding. Currently on 70% FiO2. Vital signs: Stable. General: The patient appeared well nourished and normally developed. HEENT: Tracheostomy noted. LUNGS: Breath sounds decreased. HEART: Regular rate and rhythm. Abdomen: Soft, no distention. EXTREMITITES: 1+ edema. Objective - Vital Signs Vital signs: Vital Signs Temp 99.2 F 10/15/20 08:00 Pulse 133 H 10/15/20 08:00 Resp 33 H 10/15/20 08:00 BP 112/72 10/15/20 08:00 Pulse Ox 94 L 10/15/20 08:00 Intake & Output 10/14/20 10/15/20 10/15/20 18:59 06:59 18:59 Intake Total 2153.447 1846.197 530.761 Output Total 4000 0 0 Balance -4969.345 3807.197 530.761 Weight 116.2 kg Intake: IV 256 156 26 0.9 Normal Saline @ KVO 20 0.9 Normal Saline 36 36 6 Pressure Bag Dextrose 10% in Water 500 150 ml In Empty Bag 1 bag @ 25 mls/hr IV .Q20H [facility] Rx #:[id number] Sodium Chloride 0.9% 500 50 120 20 ml 500 ml @ 10 mls/hr IV .Q24H [facility] Rx#:[id number] Intake, IV Titration 5978.611 3082.197 454.761 Amount Cisatracurium 200 mg In 770.028 572.948 200 Sodium Chloride 0.9% 180 ml @ 1 MCG/KG/MIN 7.308 mls/hr IV .Q24H [facility] Rx#: [id number] Norepinephrine 8 mg In 35.179 154.761 Sodium Chloride 0.9% 250 ml @ 0.05 MCG/KG/MIN 11. 204 mls/hr IV .Q23H2M [facility] Rx#:[id number] fentaNYL (PF) 2,500 mcg 478.939 433.270 In Sodium Chloride 0.9% 200 ml @ Per Protocol IV .Q0M [facility] Rx#:[id number] propofoL 1,000 mg In 378.48 468.80 100 Empty Bag 1 bag @ Per Protocol IV .Q0M [facility] Rx#: [id number] Tube Feeding 120 120 20 Other 150 60 30 Output: Urine 0 0 0 Hemodialysis 4000 ABP, PAP, CO, CI - Last Documented Arterial Blood Pressure 97/57 - Labs CBC & Chem 7: 10/15/20 03:50 10/15/20 03:50 Labs: Abnormal Lab Results - Last 24 Hours (Table) 10/14/20 10/14/20 10/14/20 Range/Units 11:24 14:29 18:20 WBC (3.8-10.6) k/uL RBC (3.80-5.40) m/uL Hgb (11.4-16.0) gm/dL Hct (34.0-46.0) % RDW (11.5-15.5) % Neutrophils # (Manual) (1.3-7.7) k/uL Metamyelocytes # (Man) (0) k/uL Myelocytes # (Manual) (0) k/uL ABG pH (7.35-7.45) ABG pCO2 (35-45) mmHg ABG pO2 (83-108) mmHg ABG O2 Saturation (94-97) % Sodium (137-145) mmol/L Carbon Dioxide (22-30) mmol/L BUN (7-17) mg/dL Glucose (74-99) mg/dL POC Glucose (mg/dL) 130 H 142 H 152 H (75-99) mg/dL Phosphorus (2.5-4.5) mg/dL 10/14/20 10/14/20 10/15/20 Range/Units 18:26 23:56 03:50 WBC (3.8-10.6) k/uL RBC (3.80-5.40) m/uL Hgb (11.4-16.0) gm/dL Hct (34.0-46.0) % RDW (11.5-15.5) % Neutrophils # (Manual) (1.3-7.7) k/uL Metamyelocytes # (Man) (0) k/uL Myelocytes # (Manual) (0) k/uL ABG pH (7.35-7.45) ABG pCO2 (35-45) mmHg ABG pO2 (83-108) mmHg ABG O2 Saturation (94-97) % Sodium 135 L (137-145) mmol/L Carbon Dioxide 21 L (22-30) mmol/L BUN 19 H (7-17) mg/dL Glucose 182 H (74-99) mg/dL POC Glucose (mg/dL) 143 H 203 H (75-99) mg/dL Phosphorus 6.9 H (2.5-4.5) mg/dL 10/15/20 10/15/20 Range/Units 03:50 05:09 WBC 33.9 H (3.8-10.6) k/uL RBC 2.92 L (3.80-5.40) m/uL Hgb 8.5 L (11.4-16.0) gm/dL Hct 26.4 L (34.0-46.0) % RDW 17.1 H (11.5-15.5) % Neutrophils # (Manual) 30.80 H (1.3-7.7) k/uL Metamyelocytes # (Man) 0.34 H (0) k/uL Myelocytes # (Manual) 0.34 H (0) k/uL ABG pH 7.15 L* (7.35-7.45) ABG pCO2 61 H (35-45) mmHg ABG pO2 80 L (83-108) mmHg ABG O2 Saturation 92.3 L (94-97) % Sodium (137-145) mmol/L Carbon Dioxide (22-30) mmol/L BUN (7-17) mg/dL Glucose (74-99) mg/dL POC Glucose (mg/dL) (75-99) mg/dL Phosphorus (2.5-4.5) mg/dL Assessment and Plan Plan: Assessment: 1. Acute kidney injury secondary to ATN secondary to COVID-19 and DKA. Baseline creatinine is near 1. Started on hemodialysis on September 14. Has p-cath. Oliguric. No hydronephrosis noted on kidney ultrasound. 2. DKA s/p insulin drip and IV fluids. 3. Acute hypoxic respiratory failure secondary to COVID-19 pneumonia. Status post tracheostomy this admission. 4. Metabolic acidosis secondary to acute kidney injury and DKA s/p bicarb drip. Maintained on oral bicarbonate. Expect further improvement postdialysis. 5. Hyponatremia, hypervolemic. Stable. Blood sugar stable. 6. Hyperphosphatemia secondary to acute kidney injury. Maintained on Renvela. 7. Anemia of chronic illness and kidney disease. Maintained on Aranesp. Iron deficiency noted - s/p iv iron. 8. Fluid overload. Improving with daily ultrafiltration. Plan: Hemodialysis tomorrow. Maintain tube feeds. Avoid nephrotoxins. Continue to monitor renal function and urine output. Monitor for renal recovery. Wean FiO2.
[2020-10-15] MEDS: ROCURONIUM 400 MG in SODIUM CHLORIDE 0.9% 100 ML IV SCH (09:50)
--- NOTE | 2020-10-15 10:44 | P.PN ---
Subjective Progress Note Date: 10/15/20 HISTORY OF PRESENT ILLNESS 35-year-old female patient of Dr. Arroyo with past medical history of type 2 diabetes comes in with acute shortness of breath associated with high light s ugars. Patient on admission was found to have a fever of 101.5 pulse rate 125 respiratory rate 20. Blood pressure 132/106. On chest x-ray obtained in the ER suggestive of bilateral infiltrates concerning for call with pneumonia. COVID PCR was positive. On admissions patient had an ABG with a pH of 7.14 pCO2 of 20, pO2 of 59, bicarb of 7. Patient's blood sugar on admission was 424 on assessment today patient's blood work patient had a sodium 135 potassium 5.4 chloride 123 bicarb less than 5 and creatinine 0.73. D-dimer was elevated on admission patient 9 28 patient given 1 L of IV fluids followed by normal saline running at 200 mL/h. Patient was positive for acetone on admission. She will anion gap closed and was switched to D5NS. Insulin drip was continued during the night and was switched to patient's home medication this morning. One dose of remdesiver was ordered. Apparently around noon, A- team was called on the patient secondary to hypoxia patient's oxygen saturation dropped to the 70s and 80s on 100% nonrebreather. Patient was switched to BiPAP on 18/12 and is doing better o FiO2 of 80%. ABG was obtained and ph was 7. 14 pCO2 of 28 bicarb of 7 pO2 of 17. Patient noted to have uncompensated metabolic acidosis with compensated respiratory alkalosis. Stat dose of 1 amp bicarb was given and followed by sodium bicarbonate drip. Insulin drip restarted. Patient's initiated on dexamethasone 6 mg IV twice a day. Potassium phosphate ordered as phosphorus is low. Patient's repeat blood gases suggest a pH of 7.25, CO2 32 pO2 of 72 bicarb 14. I will not normal saline at 100 mL/h as patient's anion gap has increased. Patient given 1 dose of 2 mg of morphine with improvement in respiratory rate. One dose of Ativan 0.5 mg was given. Xanax 0.25 twice a day along with Ativan 0.5 IV every 6 hours ordered for the patient. Vitals were evaluated patient pulse 129 [id number]. She was moved to the ICU. Precedex drip was initiated. Lopressor was initiated at 25 twice a day. Metoprolol tartrate 5 mg IV every 6 hours. Systolic blood pressure more than 160. Started chest x-ray was obtained and suggest stable bilateral consolidation suggestive of COVID-19 pneumonia. 09/12 patient is seen in the ICU is currently mechanically ventilated and sedated on vent settings of respiratory rate 36, tidal volume 375 FiO2 80% PEEP of 18.. Vital signs reviewed patient had a temp of 100.4 pulse 150 respiratory rate 36 oxygen saturation 95% on 80% on fio2 .'s labs are reviewed which patient had a d-dimer 1.84 that is increased to 14.3. Arterial Blood gas suggest ph 7.35, CO2 40, po2 62, . Her BMP suggest a sodium 135 potassium 3.7 chloride 112 bicarb 21 creatinine 1.57 for calcitonin is 3.5 CRP is increased from 8.78.2 LDH is increased to 2614. Patient remains on Pneumovax, propofol drip. Lovenox increased to 50 subcu twice a day. Patient received 2 L of IV fluids. Continue IV fluids at 100 mL/h. Bicarb drip discontinued patient initiated on Zosyn 3.375 every 8 hours. Continue insulin drip at 4 units per hour. Patient is currently in prone positioning 09/13: Patient evaluated in the ICU remains on Ventilation continues to be sedated, in prone position. Vent settings are respiratory rate 36, tidal vital 375, FiO2 70% PEEP of 18. ABG shows pO2 of 82, PCO2 of 39, pH is 7.19. Latest labs show WBC 11.1, hemoglobin 13.2, d-dimer still pending, but yesterday was up to 14.3. Creatinine up to 3.4, BUN 24 sodium 137, potassium 4.0. Patient's urine output has been low, nephrology on consult. Bicarb drip increased to 100 miles an hour, receiving another liter of normal saline, she did have a ultrasound that showed unremarkable bilateral kidneys. Repeat chest x-ray showed bilateral lung infiltrates that are stable. Anion gap has closed, will start Lantus 10 units at at bedtime Novolog every 6 hours. 09/14: Patient is seen in the ICU, still currently mechanically ventilated and sedated. She continues in the prone position. Her oxygen quickly drops if she is not in prone. Patient's kidney function has worsened. Laboratory values show creatinine of 4.87, BUN 33, LDH 2191, C-reactive protein 2.7. ABG shows pH 7.32, pO2 of 60, pCO2 43. Patient is making almost no urine overnight. Nephrology is following patient continues on cefepime for urinary tract infection, culture is still pending. Vascular has been consulted for placement of temporary hemodialysis catheter for plans for dialysis. 09/15: Patient evaluated in the ICU, continues to be mechanically ventilated and sedated on assist control ventilation rate of 36, tidal volume 375, FiO2 100% and PEEP of 18. ABG today shows pO2 58, pCO2 of 45, and pH 7.35. She continues on tube feedings. Yesterday patient underwent ultrasound-guided right internal jugular non-tunneled hemodialysis catheter placement. Patient underwent hemodialysis treatment last night and plans have another hemodialysis treatment today. She continues to make almost no urine. She continues on cefepime for antibiotic coverage, and continues on Decadron and Lovenox. 09/16: Patient seen on follow-up remains in the ICU mechanically ventilated and sedated. She continues on assist control rate of 36, tidal volume 375, FiO2 100% and PEEP of 20. PEEP had to be increased due to patient had to be in supine position for dialysis, will go back to prone position once dialysis is complete. ABG shows pH 7.32, pCO2 49, PaO2 61. Laboratory values showed WBC 11.2, hemoglobin 11, sodium 134, creatinine 4.44, BUN 38. Urine culture shows no growth, blood cultures show no growth to date. Repeat chest x-ray shows bilateral pleural effusions, correlate for ARDS, pulmonary edema, diffuse pneumonia, findings are stable from last exam. Patient does not require any pressors, blood pressure 133/57, heart rate 78. 5/16: Patient was evaluated in the ICU today for follow-up. She continues to be intubated and on mechanical ventilation. Current vent settings are tidal volume 375, FiO2 100% and PEEP of 20. ABG shows pH 7.37, pCO2 40, pO2 102. She continues with intermittent prone positioning. Patient continues to have almost no urine output, maintained on dialysis. Patient received dialysis yesterday without complication. Laboratory values revealed WBC 10.3, hemoglobin 10.4, sodium 132, potassium 3.1, BUN 33, creatinine 4.29, LDH 1913, C-reactive protein 1.3. Urine and sputum cultures are negative, blood cultures show no growth to date. Consult placed to dietary to start TPN[ ] 09/18: She remains in the intensive care unit intubated and on mechanical ventilation with tidal volume 375, FiO2 60 and PEEP of 20. Patient is being prone to daily at approximately 16 hours per day. Pulmonary medicine has added in Dr. Zhang to do PEG tube and trach today. Patient is not on vasopressors. Repeat blood work reveals WBC 12.6, hemoglobin 9.8, platelet count 212. Sodium 133, potassium 3.2, chloride 102, CO2 21, BUN 35 and creatinine 4.12. Blood sugar 126. Patient underwent hemodialysis yesterday with removal of 2 L and is scheduled again today with goal of 2-3 L and is scheduled again tomorrow. 09/19: She is scheduled for hemodialysis today and is off fentanyl temporarily. Patient is status post trach and PEG tube yesterday. And she remains on mechanical ventilation. Pulse ox 93-95%. She has been afebrile, heart rate 64, respiratory rate 36, blood pressure 115/50. Fentanyl is off to improve blood pressure for hemodialysis which is scheduled for today. Contacted vascular surgery about permanent hemodialysis catheter. Repeat blood work reveals WBC 14.3, hemoglobin 9.6, platelet count 200. D-dimer 6.48. LDH 1686. C-reactive protein 1.1. BUN 34 creatinine 3.81. Sodium 130, potassium 3.5, chloride 101, CO2 18. Blood sugars running between 101 198. Plan is to wean off Pneumovax today. Patient remains on insulin drip. Repeat chest x-ray reveals bilateral multifocal confluent opacities consistent with COVID-19. Some improved aeratio n periphery of the left lung and worsening opacities throughout the right lung. 09/20: She remains in the intensive care unit on mechanical ventilation. She has been afebrile, heart rate 65, respiratory rate 37, blood pressure 121/70, pulse ox 91-99%. Repeat blood work reveals WBC 14.5, hemoglobin 9.1, platelet count 216. D-dimer 6.13. Sodium 133, potassium 3.1, chloride 102, CO2 18, BUN 35 and creatinine 4.27. Blood sugars running between 128 and 143. LDH 1717. C- reactive protein 1.7. Patient remains on insulin drip which will be transitioned to NovoLog scale every 6 hours. Patient is scheduled for permanent hemodialysis catheter placement today with vascular surgery. Repeat chest x-ray reveals stable diffuse bilateral interstitial and airspace disease. Possible small right effusion. His work is following for transfer to [facility]. Do not anticipate discharge until next week. 09/21: Patient is undergoing hemodialysis. She remains on mechanical ventilation with tidal volume 375, FiO2 down to 45 and PEEP was decreased to 15. Patient is continued on propofol, fentanyl drips. She is on tube feedings at goal. Patient was taken off insulin drip yesterday and on scale only but blood sugars are running in the 200s, Levemir scheduled at bedtime will be added. Other blood work reveals WBC 13.3, hemoglobin 8.7, platelet count 192. Sodium 137, potassium 3.6, chloride 107, CO2 18, BUN 34 and creatinine 4.21. Repeat chest x-ray is stable. 09/22: She remains in the intensive care on mechanical ventilation with tidal volume 375, FiO2 of 50 and PEEP of 10. Pulse ox is running 96%. She is afebrile, heart rate in the 50s, respiratory rate 36, blood pressure 100/64. Repeat blood work reveals WBC 16.5, hemoglobin 8.9, platelet count 213. Sodium 134, potassium 3.7, chloride 103, CO2 21, BUN 34 and creatinine 3.89. Blood sugars running in the 200s to 324. Levemir increased to 16 units at bedtime and continue NovoLog scale every 6 hours. Patient is on tube feedings at goal. She has a Haley catheter in with a scant amount of dark/brown urine. Fecal management system is in place. Repeat chest x-ray reveals diffuse bilateral airspace infiltrates persist unchanged. Patient is scheduled for hemodialysis tomorrow morning on Friday. 09/23: Patient remains on mechanical ventilation with tidal volume 3.75, FiO2 50 and PEEP of 10. night monitor sinus rhythm. She has no urine output. Fecal management system is in place. She is undergoing dialysis at this time with plan for removal of 2-1/2 L. She has been afebrile, heart rate in the 50s, respiratory rate 36, blood pressure 108/76 and pulse ox 89%. WBC 13.6, hemoglobin 9.1, platelet count 194. Sodium 136, potassium 3.0 and was replaced, chloride 106, CO2 21, BUN 49 creatinine 5.31. Blood sugars are running between 182 and this morning 194. Patient was still in the 200s and 300s. Levemir last evening was increased to 16 units. Patient remains on propofol and fentanyl drips. Lovenox was increased to 60 mg twice daily. 09/24: PEEP was increased today to 20, tidal volume is at 375 and FiO2 of 50%. Patient has been afebrile. She has been started on levo fed. Repeat chest x- ray reveals bilateral multifocal confluent opacities consistent with Covid 19 or ARDS redemonstrated. Nephrology will plan dialysis for tomorrow for 3 L. Patient remains on propofol fentanyl and Nimbex. WBC 12.5, hemoglobin 9.8, platelet count 161. D-dimer 13.3. Sodium 132, potassium 3.4, chloride 102, CO2 20, BUN 48 and creatinine 4.67. Blood sugars extremely elevated to 96-409. LDH 2217. 09/25: Patient remains in the intensive care unit on mechanical ventilation with tidal volume 375, FiO2 50 and PEEP of 20. Patient is afebrile, heart rate 61, respiratory rate 36, blood pressure 102/56, pulse ox 97%. Repeat blood work reveals WBC 9.3, hemoglobin 8.5 and platelet count 171. Sodium 130, potassium 3.7, chloride 100, CO2 20, BUN 61 creatinine 5.65. Blood sugars have been elev ated up to 455. Levemir increased to 20 units twice daily, NovoLog 5 units every 6 hours and continue NovoLog scale. Patient is scheduled for hemodialysis today. Repeat chest x-ray reveals bilateral multifocal and confluent opacities. Decadron and Lovenox dosing change by pulmonary. Patient is off norepinephrine. 09/26: Patient remains in the intensive care unit on mechanical ventilation with tidal volume 375, FiO2 50 and PEEP of 15. She has been afebrile, heart rate 91, blood pressure 114/68, pulse ox 99%. night monitor sinus rhythm. 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 Sodium 134, potassium 3.6, chloride 102, CO2 22, BUN 41 creatinine 4.21. Patient has improved blood sugars this morning running 150s and 160s. Diabetic medications were adjusted yesterday. Patient is awake and alert and interacting. Yesterday, patient had PICC line inserted by interventional radiology. Repeat chest x-ray reveals diffuse airspace infiltrates in both lung ann appear to progress slightly in the interval. 09/27: Patient remains in intensive care unit on mechanical ventilation with improvement of settings with tidal volume 375, FiO2 decreased to 40 and PEEP decreased to 10. Patient is on hemodialysis every other day and plan to remove 3 L today. Patient is more awake and alert. She is slow to respond but is able to follow simple commands. Blood sugars are running between 84 and 123. Repeat blood work reveals WBC 7.1, hemoglobin 8.1, platelets 152. Sodium 135, potassium 3.6, chloride 103, CO2 21, BUN 53 and creatinine 5.88. Repeat chest x-ray revealed cardiomegaly and pulmonary edema. Patient is on tube feedings:. Patient is not require vasopressors and is off sedation. Fecal management system remains in place for brown liquid stool. C. difficile was negative. 09/28: Patient remains on mechanical ventilation with tidal volume 375, FiO2 increased to 80 and PEEP increased to 18. Patient had a rough night was very anxious, no pain. Xanax 0.25 mg 3 times daily was added. There is concern for pulmonary embolism for which patient was started on heparin drip, she is unable to undergo CAT scan. Venous Doppler bilateral lower extremities was nondiagnostic due to extensive edema in obese patient but minimal imaging of the popliteal veins does show flow. Repeat echocardiogram has been ordered. Cefepime has also been ordered at 1 g IV piggyback every 24 hours as well as vancomycin, pharmacy dosing. Patient is back on fentanyl drip, propofol drip and norepinephrine. Blood sugars are elevated and insulin Levemir will be i ncreased to 25 mg twice daily. Ferrlecit infusion has been ordered by nephrology for 4 days. Patient is undergoing hemodialysis today.temperature max 100.2, heart rate 134, respiratory rate 34, blood pressure 120/65, pulse ox 94%. night monitor is sinus tachycardia. Repeat blood work reveals WBC 16.9, hemoglobin 9.7, platelet count 216. D-dimer 8.81. Sodium 134, potassium 3.8, chloride 99, CO2 25, BUN 43 and creatinine 5.36. Blood sugars in the 200s. AST 40. 09/29 Patient had declined more last 48 hours require more sedation, patient is doing hemodialysis, respiratory failure is quite bit worse this time. Patient was inquired the pain is well back on fentanyl drip. Her vent set up with PEEP is limited but higher. No new finding on culture and her chest x-ray continues shows diffuse infiltrate persistent although there is a moderate interval improvement. 09/30 patient's was seen and evaluated. PEEP was reduced to 11 as patient is maintaining good saturation at the current vent settings. 10/01 patient was seen at bedside. She is currently on assist control rate of 28 white tidal volume 350 FiO2 50% and PEEP of 10 which has been reduced by pulmonary as patient name cleaning her oxygen saturation. Arm blood gas was obtained with a pH of 7.35 pCO2 37 pO2 of 63. She remains hemodynamically stable with no need for pressors. Labs were reviewed patient's BUN is 29 crea tinine 3.93 glucose 122 albumin 2.2 sodium 131 chloride 19 hemoglobin is downtrending with a Hb of 7.3 no leukocytosis 7.1. Patient's urine output is minimal at this time. Her rate has increased to 129 and is currently on positive fluid balance even with dialysis. Last dialysis was done yesterday. Continue enteral feeding currently at goal. Antibiotic has been discontinued and continues to remain on DEXA methicillin 4 mg IV daily. 10/02 patient continues to be on trach support with mechanical ventilation. Patient was evaluated by senior front end engineer and was switched to VC control as patient was noted to be double stacking on and off throughout the night. Respiratory rate continue to 28 tidal volume increased to 400 with a PEEP for Dr. Downey. Patient is maintaining oxygen saturation 91% on the current setting. According to the nurse bedside patient saturation drops significantly or she is moved or her sedation is dropped. Patient is currently on propofol drip, fentanyl drip. She did underwent dialysis today and was able to maintain her low pressure without the need of pressors. Labs reviewed today suggest a WBC of 6.7 hemoglobin of 7.0 and d-dimer 3.9 bicarb 17 BUN 38 creatinine 4.8. LDH is 964. Sodium 1:30 likely secondary to volume overload. Urine sodium and urine osmolality ordered. Patient's glucose this morning is 146. Continue to remain on enteral feeding. Urine output is reduced. Fall catheter will be placed today. Continue to remain on dialysis. 10/03: Patient remains on mechanical ventilation and is back on propofol and fentanyl drips. Patient is currently on VC control with tidal volume 400, FiO2 55 and PEEP of 12. Patient still is not making any urine and is dialysis dependent with next treatment planned for tomorrow with removal of 3-3-1/2 L. PEG tube feedings are at goal. Fecal management system remains in place. At the time of evaluation, patient is off levophed. Repeat chest x-ray reveals stable diffuse bilateral airspace disease correlate for ARDS, pulmonary edema or diffuse pneumonia. Temperature max last evening was 101. Temperature currently 99, heart rate 106, respiratory rate 32, blood pressure 101/50, pulse ox 86%. Repeat blood work reveals WBC 6, hemoglobin 7.4, platelet count 160. D-dimer 4.05. Sodium 133, potassium 3.5, chloride 100, CO2 23, BUN 31 creatinine 3.8. Blood sugars are running between 100 and 170. Ferritin 1514. Liver function test normal. LDH 1016, C-reactive protein 13.6. Prognosis remains guarded. 10/04: Patient remains intubated on mechanical ventilation with tidal volume 400, FiO2 65, PEEP of 14. Patient continues to run fevers and repeat blood culture and urine and urine culture ordered for today. Haley catheter has been removed this patient has no significant urine output at about 20 mL per shift. BladderScan is monitored for greater than 300 and the patient is straight cathed. Hemoglobin is 6.8 and she has been ordered 41 unit of packed RBCs today. She is currently on propofol and fentanyl drips. She is scheduled for hemodialysis today. WBC 4.5, hemoglobin 6.8, platelet count 151. D-dimer 3.28. Sodium 132, potassium 4.1, chloride 100, CO2 22, BUN 37 creatinine 4.74. Blood sugars running between 97 and 110. Ferritin 1801. LDH 859. C-reactive protein 14.4. Chest x-ray reveals correlate for pneumonia, edema, ARDS. Prognosis remains guarded. 10/05: Patient remains in intensive care unit currently on mechanical ventilation with tidal volume 400, FiO2 was increased to 100 and PEEP is at 14. She continues to run fevers which have worsened with temperature max 103.1. She has been tachycardic in the 130s, blood pressure is marginal but not on vasopressors. Pulse ox currently 92%. Repeat blood work reveals WBC 5.5, hemoglobin 7.6, platelet count 190. D-dimer 2.7, ferritin 1770, LDH 932, C- reactive protein 21.4. Blood sugars are running between 100 1669. Electrolytes are normal. BUN 27 and creatinine 3.79. Pancultures were done yesterday including a straight cath for urine culture, sputum culture and blood culture. Arterial line was removed as well as midline. She is currently on propofol, fen tanyl and started on Nimbex today. 10/06: Patient remains in the intensive care unit. Today patient in prone position and remains on mechanical ventilation with tidal volume 350, FiO2 65 and PEEP of 14. Her last documented fever was yesterday at 2 PM. Heart rate is in the 120s, respiratory rate 32, pulse ox 88-92%. CBC is unremarkable. Electrolytes are normal. BUN 30 creatinine 2.93. Blood sugars are running between 135 and 164. Cultures from October 04: Blood culture no growth, sputum culture finalized, urine culture finalized. Catheter tip culture is in process. Repeat chest x-ray shows bilateral interstitial infiltrates. Patient is on tube feedings of Nepro at goal of 30 ML's per hour. Patient underwent dialysis yesterday and is scheduled for repeat dialysis today. 10/07: Patient maintains in the intensive care unit intubated and on mechanical ventilation. She is receiving hemodialysis this morning has been every day. Plan is to remove 2-1/2 L today. Vent settings have changed today with tidal volume 350, FiO2 was increased to 100% and PEEP remains at 14. She has been continued on Nimbex, fentanyl, norepinephrine and propofol. Plan is to prone position patient following dialysis. Repeat chest x-ray reveals worsening interstitial infiltrates. BUN is 26 and creatinine 2.59. LDH 955, C-reactive protein 22.1. Prognosis remains poor. 10/08: Patient remains in intensive care unit intubated and on mechanical ventilation with tidal volume 350, FiO2 60, PEEP of 14. She is pronating today. She is scheduled for hemodialysis on a daily basis. She has been afebrile, heart rate 112, respiratory rate 36, blood pressure 161/88, pulse ox 93%. Repeat blood work reveals WBC 9.9, hemoglobin 9.1, platelet count 320. Sodium 133, potassium 5.3, chloride 100, CO2 20, BUN 29 creatinine 2.44. Blood sugar running between 102 and 139. LDH 1026, C-reactive protein 19.7. 10/09: Patient is undergoing dialysis this morning. She continues to be intubated and on mechanical ventilation with tidal volume 350, 270 and PEEP of 14. Patient is also on propofol, Nimbex, norepinephrine and fentanyl drips. Repeat chest x-ray reveals persistent bilateral multifocal and confluent opacities consistent with Covid 19. She is afebrile, heart rate 116, respiratory rate 36, blood pressure 120/65, pulse ox 91%. Repeat blood work reveals WBC 5.4, hemoglobin 9.2, platelet count 216. D-dimer 2.67, ferritin 2568, LDH 794, C- reactive protein 13.9. Blood sugars have been running 90-104. Creatinine 1.64. She is on daily dialysis treatment. 10/10: She remains in the intensive care unit. She is now out of isolation as a repeat Covid test came back negative. She remains on mechanical ventilation with tidal volume 350, FiO2 70 and PEEP of 14. Patient is also on Nimbex, propofol, norepinephrine, fentanyl drips. She is on PEG tube feedings at goal and tolerating well. Repeat blood work reveals WBC 7.8, hemoglobin 7.5, platelet count 267. Sodium 139, potassium 3.9, chloride 109, CO2 20, BUN 20 creatinine 1.29. Blood sugars are running between 76 and 102. Scheduled Aiyana Log decreased to 3 units. Repeat chest x-ray reveals moderate cardiomegaly and continued pulmonary edema. Slight interval improvement. Patient is continued on daily hemodialysis. 10/11: Patient remains in intensive care unit on mechanical ventilation with tidal volume 325, FiO2 70, PEEP 14. She is currently being prone. She underwent hemodialysis this morning with removal of 4 L of fluid with plan to continue daily treatment. She is currently on Nimbex, fentanyl and propofol. No vasopressor at this time. Fecal management system remains in place. She is on tube feedings currently at hold due to prone positioning. Patient has been afebrile, heart rate 116, respiratory rate 36, blood pressure 100/58, pulse ox 93-96%. Repeat blood work reveals WBC 9.3, hemoglobin 8.1, platelet count 276. Sodium 136, potassium 4.3, chloride 103, CO2 20, BUN 20 creatinine 1.14. Blood sugars running between 133 and 202. 10/12: Patient remains in the intensive care unit. She is undergoing hemodialy sis this morning. She's been afebrile, heart rate in the 120s, respiratory rate 32, blood pressure 102/65. She is not on vasopressors. She is continued on Nimbex, fentanyl and propofol. Vent settings are currently tidal volume 325, FiO2 70, PEEP 14. Total platelet count 273. Sodium 133, potassium 4.7, chloride 100, CO2 19, BUN 21 creatinine 0.91. Blood sugars running between 121 and 143. 10/13: Patient remain in the ICU she is on hemodialysis daily, she is still on the vent with a PEEP of 14 and FiO2 of 70. Her oxygenation is marginal pulse rate still high. Patient had scratched cornea was seen in ophthalmology decided to keep doing eyedrops along with eye patch at this point. Prognosis still very bad this point. 10/14: She remains on mechanical ventilation with tidal volume 325, FiO2 70% and PEEP of 14. She did require label fed last evening for about 6 hours. She did not tolerate pronating yesterday. She is undergoing dialysis this morning with plan for removal of 4 L. Blood sugars have been low and IV fluids changed to D10 until blood sugars have recovered. Levemir and scheduled NovoLog discontinued. Patient is on tube feedings at goal there's been no change in th is. 10/15 patient remains on mechanical ventilation in the intensive care unit. FiO2 still at 70%, PEEP of 18. Blood sugars have improved since medications were adjusted. White blood cells 33.9, hemoglobin 8.5, sodium 135, BUN 19, creatinine 0.96. Patient to receive dialysis again today. Patient did run a low-grade fever throughout the night and pro calcitonin level is ordered. Chest x-ray showed continued diffuse bilateral airspace disease. Patient remains on tube feedings at goal. REVIEW OF SYSTEMS Unable to obtain due to mechanical ventilation. PHYSICAL EXAMINATION Gen: This is is a 35-year-old black female, patient is intubated and on mechanical ventilation, appears to be comfortable. HEENT: Head is atraumatic, normocephalic. Pupils equal, round. Sclerae is anicteric. Tracheostomy midline. NECK: Supple. No JVD. No lymphadenopathy. No thyromegaly. LUNGS: Coarse bilateral rhonchi/ scattered crackles No intercostal retractions. HEART: Regular rate and rhythm. No murmur. ABDOMEN: Soft. Bowel sounds are present. No masses. No tenderness. Fecal management system in place. EXTREMITIES: Trace bilateral pedal edema. No calf tenderness. NEUROLOGICAL: Patient is sedated. ASSESSMENT AND PLAN 1. Acute hypoxic respiratory failure secondary to Covid 19 pneumonia and possible bacterial pneumonia. Patient was intubated on September 11. She is status post 1 dose of Remdesivir and 1 dose of Tocilizumab. Continue Ventolin inhaler 4 times daily, Symbicort twice daily, Decadron 4 mg IV daily, Lovenox 30 mg subcu daily, supplements. Status post PEG tube and trach. Isolation precautions at been removed. Prone positioning held. 2. Acute diabetic ketoacidosis secondary to Covid 19 pneumonia, uncontrolled with hyperglycemia. Levemir and scheduled NovoLog discontinued due to hypoglycemia, continue NovoLog scale. Once blood sugars recover, D10 IV fluids to be discontinued. 3. Metabolic encephalopathy secondary to Covid 19 and DKA. 4. Sepsis and septic shock secondary to Covid 19 pneumonia with multiorgan failure. Continue as in #1. 5. Acute metabolic acidosis secondary to acute DKA, Covid 19 and acute kidney injury. Sodium bicarb 650 mg 3 times daily. 6. Diabetes mellitus type 2 uncontrolled with A1c 13.6. Continue as above. 7. Hypophosphatemia status post replacement. 8. Hyperkalemia secondary to DKA, resolved. 9. Sinus tachycardia secondary to sepsis, volume deficiency. 10. Acute kidney injury secondary to ATN secondary to Covid 19 and DKA. Continue daily hemodialysis. Permanent dialysis catheter placed. 11. Possible acute gram-negative pneumonia versus MRSA pneumonia. Completed course of antibiotics. 12. Hypertension. 13. Morbid obesity with BMI of 53. 14. DVT prophylaxis. Lovenox. 15. GI prophylaxis. Protonix 40 mg IV push daily. CODE STATUS: Full code Prognosis poor. DISCHARGE PLAN [facility] Acute Care Impression and plan of care have been directed as dictated by the signing physician. [facility] nurse practitioner acting as scribe for signing physician. Objective - Vital Signs Vital signs: Vital Signs Temp 98.9 F 10/15/20 04:00 Pulse 135 H 10/15/20 07:00 Resp 32 H 10/15/20 07:00 BP 121/73 10/15/20 07:00 Pulse Ox 94 L 10/15/20 07:00 Intake & Output 10/14/20 10/15/20 10/15/20 18:59 06:59 18:59 Intake Total 2153.447 1846.197 156.549 Output Total 4000 0 0 Balance -1110.430 4346.197 156.549 Weight 116.2 kg Intake: IV 256 156 13 0.9 Normal Saline @ KVO 20 0.9 Normal Saline 36 36 3 Pressure Bag Dextrose 10% in Water 500 150 ml In Empty Bag 1 bag @ 25 mls/hr IV .Q20H [facility] Rx #:[id number] Sodium Chloride 0.9% 500 50 120 10 ml 500 ml @ 10 mls/hr IV .Q24H [facility] Rx#:[id number] Intake, IV Titration 3724.768 5199.197 133.549 Amount Cisatracurium 200 mg In 770.028 572.948 Sodium Chloride 0.9% 180 ml @ 1 MCG/KG/MIN 7.308 mls/hr IV .Q24H [facility] Rx#: [id number] Norepinephrine 8 mg In 35.179 133.549 Sodium Chloride 0.9% 250 ml @ 0.05 MCG/KG/MIN 11. 204 mls/hr IV .Q23H2M [facility] Rx#:[id number] fentaNYL (PF) 2,500 mcg 478.939 433.270 In Sodium Chloride 0.9% 200 ml @ Per Protocol IV .Q0M [facility] Rx#:[id number] propofoL 1,000 mg In 378.48 468.80 Empty Bag 1 bag @ Per Protocol IV .Q0M [facility] Rx#: [id number] Tube Feeding 120 120 10 Other 150 60 Output: Urine 0 0 0 Hemodialysis 4000 ABP, PAP, CO, CI - Last Documented Arterial Blood Pressure 97/57 - Labs CBC & Chem 7: 10/15/20 03:50 10/15/20 03:50 Labs: Abnormal Lab Results - Last 24 Hours (Table) 10/14/20 10/14/20 10/14/20 Range/Units 08:13 11:24 14:29 WBC (3.8-10.6) k/uL RBC (3.80-5.40) m/uL Hgb (11.4-16.0) gm/dL Hct (34.0-46.0) % RDW (11.5-15.5) % Neutrophils # (Manual) (1.3-7.7) k/uL Metamyelocytes # (Man) (0) k/uL Myelocytes # (Manual) (0) k/uL ABG pH (7.35-7.45) ABG pCO2 (35-45) mmHg ABG pO2 (83-108) mmHg ABG O2 Saturation (94-97) % Sodium (137-145) mmol/L Carbon Dioxide (22-30) mmol/L BUN (7-17) mg/dL Glucose (74-99) mg/dL POC Glucose (mg/dL) 103 H 130 H 142 H (75-99) mg/dL Phosphorus (2.5-4.5) mg/dL 10/14/20 10/14/20 10/14/20 Range/Units 18:20 18:26 23:56 WBC (3.8-10.6) k/uL RBC (3.80-5.40) m/uL Hgb (11.4-16.0) gm/dL Hct (34.0-46.0) % RDW (11.5-15.5) % Neutrophils # (Manual) (1.3-7.7) k/uL Metamyelocytes # (Man) (0) k/uL Myelocytes # (Manual) (0) k/uL ABG pH (7.35-7.45) ABG pCO2 (35-45) mmHg ABG pO2 (83-108) mmHg ABG O2 Saturation (94-97) % Sodium (137-145) mmol/L Carbon Dioxide (22-30) mmol/L BUN (7-17) mg/dL Glucose (74-99) mg/dL POC Glucose (mg/dL) 152 H 143 H 203 H (75-99) mg/dL Phosphorus (2.5-4.5) mg/dL 10/15/20 10/15/20 10/15/20 Range/Units 03:50 03:50 05:09 WBC 33.9 H (3.8-10.6) k/uL RBC 2.92 L (3.80-5.40) m/uL Hgb 8.5 L (11.4-16.0) gm/dL Hct 26.4 L (34.0-46.0) % RDW 17.1 H (11.5-15.5) % Neutrophils # (Manual) 30.80 H (1.3-7.7) k/uL Metamyelocytes # (Man) 0.34 H (0) k/uL Myelocytes # (Manual) 0.34 H (0) k/uL ABG pH 7.15 L* (7.35-7.45) ABG pCO2 61 H (35-45) mmHg ABG pO2 80 L (83-108) mmHg ABG O2 Saturation 92.3 L (94-97) % Sodium 135 L (137-145) mmol/L Carbon Dioxide 21 L (22-30) mmol/L BUN 19 H (7-17) mg/dL Glucose 182 H (74-99) mg/dL POC Glucose (mg/dL) (75-99) mg/dL Phosphorus 6.9 H (2.5-4.5) mg/dL
--- NOTE | 2020-10-15 11:55 | P.PN ---
Subjective Progress Note Date: 10/15/20 Principal diagnosis: Acute respiratory failure secondary to Covid 19 pneumonia. Patient was reevaluated today on 10/05/2020, remains in the ICU, intubated, mechanically ventilated, patient is doing worse today compared to the last few days, her chest x-ray is worsening, her O2 requirement is rising and she is back on the percent FiO2, I have also increased her PEEP to 16, assist control rate was increased to 52, FiO2 is on the percent. ABG earlier today on 70% FiO2 showed a pO2 of 56 pCO2 of 50 pH of 7.32. She was on assist control rate of 28 tidal volume of 400 FiO2 70% and PEEP of 14. Patient had to be placed on a higher dose of propofol which was increased to 70 fentanyl is at 2 mcg/kg/m, patient will be placed on Nimbex as I'm having difficulty oxygenating the pat ient in spite of high FiO2. She is scheduled to undergo hemodialysis again today, she had 4 L off yesterday. Remains on tube feeds using vital AF at 30 MLS per hour. Patient is tachycardic rate is 129, blood pressure is marginal 86/45, hence may recommend adding norepinephrine. The overall picture clearly showing deterioration in this patient's clinical status, and I have a feeling that this patient will continue to do poorly and she is now maximized on treatment. Again her chest x-ray is showing significant worsening of her infiltrates. Patient was reevaluated today on 10/06/2020, remains in the ICU, intubated and mechanically ventilated, and she is presently in prone position since last night for the next few hours until dialysis which is supposed to start sometime in the next couple of hours. Patient remains on assist control mode of mechanical ventilation, it is volume control with volume of 350 rate of 3 to FiO2 65%. 14. Her ABG showed a pO2 of 68 pCO2 of 52 pH of 7.28. Patient remains on propofol at 75 fentanyl at 3 mcg/kg/h she is also on norepinephrine at 0.02 and Nimbex at 3 mcg/kg/m. Patient is scheduled to have hemodialysis today. Chest x-ray continues to show evidence of bilateral interstitial infiltrates. Patient is on enteral feeding in the form of Nepro at 30/30. Patient has been proned now for the last 17 hours. Electrolytes are normal however her BUN is 30 creatinine 2.93. Blood sugar is 147 WBC count is 5.1 hemoglobin is 11.4. Patient remains on the COVID-19 cocktail. Remains on albuterol, Symbicort, Decadron 4 mg IV push daily, Lovenox 30 mg subcu daily. Insulin protocol. Her tonic 40 mg IV push daily. Off antibiotics. Patient was reevaluated today on 10/07/2020, remains in the ICU, intubated and mechanically ventilated, presently receiving hemodialysis. She is on assist control rate of 32, tidal volume of 350, FiO2 is up to on the percent today, and PEEP of 14. Higher PEEP did not seem to help much, hence I kept her on a PEEP of 14. ABG today showed a pO2 of 63 pCO2 53 pH of 7.25. A shunt is on Nimbex at 4 mcg/kg/m, fentanyl 3 mcg/kg/h, norepinephrine at 0.07 mcg/kg/m, propofol at 75 mcg/kg/m. Again the patient is receiving hemodialysis, and I have instructed the nurses today to go back into prone position after she is done with dialysis. Chest x-ray continues to show worsening interstitial infiltrates and ARDS pic ture. Labs were all reviewed. Her medications were all reviewed today. Basic metabolic profile is normal BUN is 26 creatinine 2.59. LDH is 955 and C- reactive protein is 22.1. Not much of a change in the last few days. Patient was reevaluated today on 10/08/2020, remains in the ICU, intubated and mechanically ventilated, patient is presently in prone position her ABG this morning showed significant improvement in her oxygenation, however continues to have a combined metabolic and respiratory acidosis. She is now on assist control of 350 rate of 36 FiO2 down to 60% PEEP at 14. ABG on 100% showed a pO2 of 209 pCO2 of 59 pH of 7.15. Her assist control rate was increased to 36. Kept her on the same tidal volume of 350. 2 A of bicarb were given. Patient is also on bicarb drip. Patient remains on propofol at 75 mcg/kg/m, she is on Nimbex at 4 mcg/kg/m, and norepinephrine at 0.01 mcg/kg/m. Patient is also on fentanyl at 3 mcg/kg per hour. During my evaluation, the patient was in prone position, however should be placed back in supine position once dialysis is ready and the patient will be dialyzed again today. Chest x-ray from yesterday continues to show evidence of interstitial edema and ARDS. No chest x-ray has been done yet today because the patient was in prone position. Patient remains on Decadron, remains on Lovenox, she is off antibiotics for now. CBC showed WBC 9.9 hemoglobin is 9.1. Hematocrit is 28.7. Electrodes are normal. BUN is 29 and creatinine 2.44. Bicarb is 20. LDH is up a bit 1026, C-reactive protein is about the same at 19.7. Progress note dated 10/09/2020. This is a 35-year-old black female with history of acute COVID 19 infection, with acute hypoxemic respiratory failure. She was admitted way back on September 10. Because of failure to wean from mechanical ventilation, she underwent tracheostomy and PEG tube placement on September 18. Currently remains on the ventilator. She is on the VC + (PRVC) modality, with a targeted tidal volume 350 and inspiratory time of 0.9 seconds. Her rate is set at 36. FiO2 70%, and PEEP of 14. On those settings, her arterial blood gases show a PaO2 of 72, pCO2 47, and pH 7.23. Currently, the patient's getting daily hemodialysis. Her drips including propofol at 75 mcg/kg/m, Nimbex at 3.5 mcg/kg/m, with [id number] monitoring, fentanyl at 3 g kilogram per hour, norepinephrine at 7 mcg/m, saline at 20 mL an hour, and vital 1.2 at 10 mL an hour, which is goal. White count 5.4, hemoglobin 9.2, hematocrit 28.8, and platelet count 217,000. Sodium 137, potassium 4.2, chlorides 108, CO2 19, anion gap 10, BUN 22, and creatinine 1.64. The patient's chest x-ray is consistent with bilateral infilt rates, and is essentially unchanged, and consistent with a diagnosis of coronavirus pneumonia. Progress note dated 10/10/2020. 35-year-old black female, with a history of COVID 19 infection and acute hypoxemic respiratory failure. She was admitted way back on September 10. Because of failure to wean from mechanical ventilation, she underwent tracheostomy and PEG tube placement on September 18. She remains on the mechanical ventilator. She is on the pressure regulated volume control modality. Her targeted tidal volume is 350 mL, and her inspiratory time 0.9 seconds. The patient's on 70% FiO2, PEEP o f 14, with a rate of 36. The patient is receiving Nimbex at 4.5 mcg/kg/m, propofol at 65 mcg/kg/m, norepinephrine at 3.5 mcg/m, fentanyl at 2.5 mcg/kg/h, and vital AF 1.2 at 10 mL an hour which is goal. The patient's blood gases from this morning show a PaO2 of 79, 5, and a pH is 7.29. Today's chest x-ray is currently still pending. Overnight, there've been no major changes in her condition. White count 7.8, hemoglobin 7.5, hematocrit 23.1, and platelet count 267,000. Sodium 139, potassium 3.9, chlorides 109, CO2 20, anion gap 10, BUN 20, with creatinine 1.29. Progress note dated 10/11/2020. 35-year-old black female with a history of COVID 19 infection and acute hypoxemic respiratory failure. She was admitted back on September 10. Because of failure to wean from mechanical ventilation, she underwent tracheostomy and PEG tube placement on September 18. She remains on the mechanical ventilator to this day. Currently, she is on pressure regulated [place] control, with a targeted tidal volume of 350, inspiratory time of 0.9 seconds, FiO2 70%, PEEP of 14, and a rate of 36. Her blood gases show a PaO2 of 74, pCO2 46, pH 7.28. In an attempt to reduce the FiO2, I was going to go up on the PEEP, but I was reminded that the patient has a issue with high airway pressures, potentially causing airway and alveolar trauma. For that reason, I will switch her to volume assist control modality, with a tidal volume at 325, rate 32, FiO2 70%, and PEEP of 14. This will cause permissive hypercapnic ventilation. I'm okay with this, and I will except a pH of 7.15 or higher. He blood gas will be done in one hour. The patient has daily hemodialysis. We will attempt to prone the patient for 16 hours today. She apparently does well with that modality. Currently, she is on saline at KVO, propofol at 65 mcg/kg/m, fentanyl at 2.5 mcg/kg/h, Nimbex at 3.5 mcg/kg/m, and norepinephrine has been weaned off. She is getting vital AF, at 10 mL an hour, which is goal. Over the last 3 days, since I've been seeing her, there is not been much in the way of progress. White count 9.3, hemoglobin 8.1, hematocrit 26.4, platelet count 276,000. Sodium 136, potassium 4.3, chlorides 103, CO2 20, anion gap 13, BUN and creatinine were 20 and 1.14. Chest x-ray today shows improvement of volume status. Progress note dated 10/12/2020. 35-year-old black female again seen in the intensive care unit, room 265. She has a history of coronavirus pneumonia with acute hypoxemic respiratory failure. She was admitted way back on September 10. She ended up with a tracheostomy and PEG tube placement on September 18 for failure to wean from mechanical ventilation. She remains on the ventilator. She is on volume assist control mode rate of 32, tidal volume 325, FiO2 70%, PEEP of 14. Arterial blood gases show pO2 of 54, pCO2 60, pH is 7.17. She's getting hemodialysis today. Peak airway pressures about 21 cm water. He is getting propofol at 75 mcg/kg/m, fentanyl at 3.5 mcg/kg/h, Nimbex at 7 mcg/kg/m, and saline at KVO. Her tube feeds include vital AF at 10 mL an hour, which is goal. She currently tested negative for coronavirus. She is getting hemodialysis today. Chest x-rays essentially unchanged. White count 10.4, he will May 0.1, hematocrit 25.9, platelet count 273,000. Sodium 133, potassium 4.7, chlorides 100, CO2 19, anion gap 14, BUN and creatinine were 21 and 0.91. This electrolyte profile consistent with an anion gap metabolic acidosis. Saturations currently are 95%. Medications are reviewed. Progress note dated 10/13/2020. 35-year-old black female, seen again in the ICU, room 265. She has a history of coronavirus pneumonia with acute hypoxemic respiratory failure. She was admitted to this hospital on the . She ended up with a tracheostomy and PEG tube being placed on September 18 for failure to wean from mechanical ventilation. She remains on mechanical ventilator. Currently, she is on the volume assist control mode, rate 32, tidal volume 325, FiO2 70%, PEEP of 14. Arterial blood gases show pO2 70, pCO2 of 56, and a pH is 7.26. The patient is currently also on Nimbex at 2.5 mcg/kg/m with train of 4 monitoring, propofol at 50 mcg/kg/m, and fentanyl at 2 mcg/kg/h. The patient's also getting vital AF and 10 mL an hour, which is goal. The patient's airway pressures today are a bit better. Her peak airway pressures are in the low 40s. While she was being prone yesterday, there was a significant cuff leak. Hence, she had be placed in the supine position. White count 14.2, hemoglobin 8.3, hematocrit 26.4, and platelet count 285,000. Sodium 134, potassium 4, chlorides 99, CO2 23, anion gap 12, BUN 21, and creatinine 0.70. Microbiology is all negative. Chest x-ray continues to show diffuse bilateral infiltrates. Progress note dated 10/14/2020. 35-year-old black female seen again in room 265. She has a history of coronavirus pneumonia with acute hypoxemic respiratory failure. She was admitted to the hospital on September 10. She ended up with a tracheostomy and PEG tube being placed on September 18 for failure to wean from mechanical ventilation. Roslyn oconnor remains on the ventilator. Currently, she is on volume assist control mode, rate 32, tidal volume 325, FiO2 70%, and PEEP of 14. She's receiving propofol 60 mcg/kg/m, fentanyl at 3 mcg/kg/h, and Nimbex at 7 mcg/kg/m. The patient is also receiving saline at 20 mL an hour. She's been on and off of norepinephrine area and currently is on hold. She is also receiving vital AF at 10 mL an hour which is goal. Laboratory data from today is not yet available. From October 13, white count 14.2, hemoglobin 8.3, and platelet count was normal. Also, blood gases from yesterday show pO2 70, pCO2 of 56, and pH is 7.26. Electrolytes are essentially within normal range. Chest x-ray from yesterday continues to show bilateral infiltrates, without much change. Progress note dated 10/15/2020. 35-year-old black female, again seen in room 265. She has a history of coronavirus pneumonia, with acute hypoxemic respiratory failure. She was admitted to the hospital back on September 10. She ended up with a tracheostomy and PEG tube being placed on September 18 for failure to wean from mechanical ventilation. She's been in the hospital now for 35 days. Currently remains on the ventilator. She's on the volume assist control mode, rate 32, tidal volume 325, FiO2 70%, EPAP of 18. Blood gases show pO2 of 80, pCO2 61, pH is 7.15. The patient will have hemodialysis today. Yesterday, hemodialysis was done, and 4 L was removed. The patient is currently on propofol at 70 mcg/kg/m, fentanyl at 3 mcg/kg/h, Nimbex at 8 mcg/kg/m, no epinephrine at 6 mg/m, 0.9 at 10 mL an hour, and vital AF at 10 mL an hour which is goal. Unfortunately, she is twitching 4 out of 4 on the Nimbex at the current dose, and we will switch her to rocuronium at 5 mcg/kg/m. We'll titrate accordingly, and monitor the patient with [id number] testing. Current laboratory data includes a white count of 33.9, hemoglobin 8.5, hematocrit 26.4, and platelet count 367,000. Sodium 135, potassium 4.5, chlorides 100, CO2 21, anion gap 14, BUN 19, creatinine 0.96. Microbiologic data is all negative. Objective - Vital Signs Vital signs: Vital Signs Temp 99.2 F 10/15/20 08:00 Pulse 129 H 10/15/20 11:00 Resp 27 H 10/15/20 11:00 BP 103/63 10/15/20 11:00 Pulse Ox 96 10/15/20 11:00 Intake & Output 10/14/20 10/15/20 10/15/20 18:59 06:59 18:59 Intake Total 2153.447 1846.197 599.761 Output Total 4000 0 0 Balance -4793.079 2893.197 599.761 Weight 116.2 kg Intake: IV 256 156 65 0.9 Normal Saline @ KVO 20 0.9 Normal Saline 36 36 15 Pressure Bag Dextrose 10% in Water 500 150 ml In Empty Bag 1 bag @ 25 mls/hr IV .Q20H [facility] Rx #:[id number] Sodium Chloride 0.9% 500 50 120 50 ml 500 ml @ 10 mls/hr IV .Q24H [facility] Rx#:[id number] Intake, IV Titration 8150.719 9112.197 454.761 Amount Cisatracurium 200 mg In 770.028 572.948 200 Sodium Chloride 0.9% 180 ml @ 1 MCG/KG/MIN 7.308 mls/hr IV .Q24H [facility] Rx#: [id number] Norepinephrine 8 mg In 35.179 154.761 Sodium Chloride 0.9% 250 ml @ 0.05 MCG/KG/MIN 11. 204 mls/hr IV .Q23H2M [facility] Rx#:[id number] fentaNYL (PF) 2,500 mcg 478.939 433.270 In Sodium Chloride 0.9% 200 ml @ Per Protocol IV .Q0M [facility] Rx#:[id number] propofoL 1,000 mg In 378.48 468.80 100 Empty Bag 1 bag @ Per Protocol IV .Q0M [facility] Rx#: [id number] Tube Feeding 120 120 50 Other 150 60 30 Output: Urine 0 0 0 Hemodialysis 4000 ABP, PAP, CO, CI - Last Documented Arterial Blood Pressure 97/57 - Exam No acute distress, sedated and paralyzed, with a midline tracheostomy tube. HEENT examination is grossly unremarkable. Neck supple. Full range of motion. No adenopathy thyromegaly or neck vein distention. Midline tracheostomy tube noted. Cardiovascular examination reveals regular rhythm rate. S1-S2 normal. No S3 or S4. No discernible murmur noted. Heart sounds are distant. Heart rate 129 beats per minute. Lungs reveal diffuse coarse rhonchi and bilateral crackles. No wheezes. Breath sounds equal bilaterally but diminished throughout. Saturations ranged from 94- 96%. Abdomen soft bowel sounds are heard. No masses or tenderness. PEG tube noted. Extremities are intact. No cyanosis clubbing or edema. Skin is without rash or lesion. Neurologic examination cannot be adequately assessed as the patient's currently sedated and paralyzed. - Labs CBC & Chem 7: 10/15/20 03:50 10/15/20 03:50 Labs: Abnormal Lab Results - Last 24 Hours (Table) 10/14/20 10/14/20 10/14/20 Range/Units 14:29 18:20 18:26 WBC (3.8-10.6) k/uL RBC (3.80-5.40) m/uL Hgb (11.4-16.0) gm/dL Hct (34.0-46.0) % RDW (11.5-15.5) % Neutrophils # (Manual) (1.3-7.7) k/uL Metamyelocytes # (Man) (0) k/uL Myelocytes # (Manual) (0) k/uL ABG pH (7.35-7.45) ABG pCO2 (35-45) mmHg ABG pO2 (83-108) mmHg ABG O2 Saturation (94-97) % Sodium (137-145) mmol/L Carbon Dioxide (22-30) mmol/L BUN (7-17) mg/dL Glucose (74-99) mg/dL POC Glucose (mg/dL) 142 H 152 H 143 H (75-99) mg/dL Phosphorus (2.5-4.5) mg/dL 10/14/20 10/15/20 10/15/20 Range/Units 23:56 03:50 03:50 WBC 33.9 H (3.8-10.6) k/uL RBC 2.92 L (3.80-5.40) m/uL Hgb 8.5 L (11.4-16.0) gm/dL Hct 26.4 L (34.0-46.0) % RDW 17.1 H (11.5-15.5) % Neutrophils # (Manual) 30.80 H (1.3-7.7) k/uL Metamyelocytes # (Man) 0.34 H (0) k/uL Myelocytes # (Manual) 0.34 H (0) k/uL ABG pH (7.35-7.45) ABG pCO2 (35-45) mmHg ABG pO2 (83-108) mmHg ABG O2 Saturation (94-97) % Sodium 135 L (137-145) mmol/L Carbon Dioxide 21 L (22-30) mmol/L BUN 19 H (7-17) mg/dL Glucose 182 H (74-99) mg/dL POC Glucose (mg/dL) 203 H (75-99) mg/dL Phosphorus 6.9 H (2.5-4.5) mg/dL 10/15/20 Range/Units 05:09 WBC (3.8-10.6) k/uL RBC (3.80-5.40) m/uL Hgb (11.4-16.0) gm/dL Hct (34.0-46.0) % RDW (11.5-15.5) % Neutrophils # (Manual) (1.3-7.7) k/uL Metamyelocytes # (Man) (0) k/uL Myelocytes # (Manual) (0) k/uL ABG pH 7.15 L* (7.35-7.45) ABG pCO2 61 H (35-45) mmHg ABG pO2 80 L (83-108) mmHg ABG O2 Saturation 92.3 L (94-97) % Sodium (137-145) mmol/L Carbon Dioxide (22-30) mmol/L BUN (7-17) mg/dL Glucose (74-99) mg/dL POC Glucose (mg/dL) (75-99) mg/dL Phosphorus (2.5-4.5) mg/dL Assessment and Plan Assessment: Acute hypoxemic respiratory failure, secondary to COVID 19 pneumonia, with ARDS, with admission to hospital on September 10, transferred to ICU on the , intubation on September 11, and tracheostomy and PEG tube placement on September 18. Acute respiratory distress syndrome (ARDS). Acute kidney injury, currently on hemodialysis. Acute diabetic ketoacidosis, resolved. Sepsis, secondary to COVID 19 pneumonia. Anion gap metabolic acidosis. Poorly controlled type 2 diabetes. Elevated inflammatory markers secondary to coronavirus infection. History of essential hypertension. Generalized anxiety disorder. Morbid obesity. Plan: Plan dated 10/09/2020. The patient remains on the pressure regulated volume control mode of ventilation. The patient is being nourished at goal. The patient remains on propofol, Nimbex, and fentanyl. In addition, the patient remains on norepinephrine. Labs, x-rays, and medications are all reviewed. Prognosis is very poor. We will continue to follow. Additional recommendations and suggestions are forthcoming. The patient remains on daily hemodialysis. Plan dated 10/10/2020. The patient remains about the same. She remains on the ventilator. The patient is status post tracheostomy and PEG tube placement. She remains sedated with propofol and fentanyl. She is also chemically paralyzed with Nimbex. She remains on norepinephrine at 8.5 mcg/m for low blood pressure. Cultures are all negative. She remains on periodic hemodialysis. Additional recommendations and suggestions are forthcoming. Diagnosis is guarded. We will continue to follow make recommendations where appropriate. Plan dated 10/11/2020. The patient remains on mechanical ventilator. We will attempt to prone the patient today for 16 hours, to improve oxygenation. In addition, the patient is switched from pressure regulated volume control modality to volume assist control. Settings include tidal volume at 325, rate 32, FiO2 70%, PEEP of 14. A repeat blood gas to be done in an hour. Additional recommendations and suggestions are forthcoming. The patient is currently undergoing daily hemodialysis. Prognosis remains very poor. We will continue to follow make recommendations where appropriate. Plan dated 10/12/2020. The patient remains on mechanical ventilator. We'll see for can wean down the Nimbex. This seems like a high-dose to me. He should be doing [id number] monitoring. The patient is receiving hemodialysis today. Saturations are 95 and 96%. Peak airway pressures 41 cm water. Additional recommendations and suggestions are forthcoming. Prognosis is very guarded. She is getting nutrition at goal. The patient does better in terms of her saturations, when she is in the prone position. Today we will place her in the prone position again. Plan dated 10/13/2020. The patient remains on mechanical ventilator. She did not do well yesterday with prone because of the tracheostomy cuff leak. Her airway pressures are a bit lower today. She remains on Nimbex, propofol, and fentanyl. She is getting nutrition at goal. Today's blood gases are reasonable. She's currently getting daily hemodialysis. We will continue to follow. Additional recommendations and suggestions are forthcoming. We'll attempt to get the paralysis off. No additional recommendations are made at this time. Plan dated 10/14/2020. The patient remains on mechanical ventilator. Essentially, she's been stable on propofol, fentanyl, and Nimbex. She remains on vital AF at goal. She's been on and off norepinephrine through the night. Labs and x-rays from today are still pending. Vent settings has not changed. We will continue to follow make recommendations where appropriate. Overall prognosis remains very guarded. Plan dated 10/15/2020. The patient remains on the ventilator. She remains on propofol, fentanyl, and Nimbex. She's also on norepinephrine at 6 mg/m. We don't seem to be adequately paralyzing this patient. We will switch to a different paralytic. She did have hemodialysis yesterday. 4 L was removed. She'll have hemodialysis today. Once we have her properly paralyzed, the patient will have a repeat blood gas. I may end up increasing her rate up to 36. Overall prognosis remains very poor. Time with Patient: Greater than 30
[2020-10-15 12:21] LABS: Glucose,Whole Blood 215 mg/dL (75-99)
[2020-10-15 14:04] LABS: ABG Base Excess -8.5 mmol/L; ABG HCO3 20 mmol/L (21-25); ABG Oxygen Saturation 95.8 % (94-97); ABG PCO2 60 mmHg (35-45); ABG PO2 98 mmHg (83-108); ABG TCO2 22 mmol/L (19-24)
[2020-10-15 14:13] LABS: ABG PH 7.14 (7.35-7.45); Allen Test Performed? no
[2020-10-15 17:29] LABS: Glucose,Whole Blood 199 mg/dL (75-99)
[2020-10-16 00:01] LABS: Glucose,Whole Blood 147 mg/dL (75-99)
[2020-10-16] MEDS: INSULIN ASPART (NovoLOG) 100 UNIT/ML VIAL SQ SCH ×4 (00:02→17:02)
[2020-10-16] MEDS: ARTIFICIAL TEARS-HYPROMELLOSE DROPS 15 ML BTL BOTH EYES SCH ×3 (00:03→08:41)
[2020-10-16] MEDS: ROCURONIUM 400 MG in SODIUM CHLORIDE 0.9% 100 ML IV SCH ×3 (03:03→20:36)
[2020-10-16] MEDS: fentaNYL (PF) 2,500 MCG in SODIUM CHLORIDE 0.9% 200 ML IV SCH ×3 (03:12→18:44)
[2020-10-16 05:11] LABS: ABG Base Excess -7.8 mmol/L; ABG HCO3 20 mmol/L (21-25); ABG Oxygen Saturation 97.1 % (94-97); ABG PCO2 51 mmHg (35-45); ABG PH 7.21 (7.35-7.45); ABG PO2 109 mmHg (83-108); ABG TCO2 22 mmol/L (19-24); Allen Test Performed? Yes
[2020-10-16 05:59] LABS: Anisocytosis Slight; HCT 22.8 % (34.0-46.0); HGB 7.5 gm/dL (11.4-16.0); Hypochromasia Marked; MCH 29.3 pg (25.0-35.0); MCHC 32.8 g/dL (31.0-37.0); MCV 89.3 fL (80.0-100.0); Mean Platelet Volume 8.9; Platelet Count 291 k/uL (150-450); Poikilocytosis Moderate; RBC 2.55 m/uL (3.80-5.40); RDW 17.1 % (11.5-15.5); WBC 18.9 k/uL (3.8-10.6)
[2020-10-16 06:20] LABS: Calcium 9.8 mg/dL (8.4-10.2); Potassium 4.2 mmol/L (3.5-5.1)
[2020-10-16 06:28] LABS: Band Neutrophils % 26 %; Eosinophils # (M) 0.57 k/uL (0-0.7); Lymphocytes # (M) 0.38 k/uL (1.0-4.8); Metamyelocytes # (M) 1.13 k/uL (0); Metamyelocytes % 6 %; Monocytes # (M) 1.51 k/uL (0-1.0); Neutrophils % (M) 55 %; Nucleated Red Blood Cells 0 /100 WBC (0-0); Total Cells Counted 200
[2020-10-16 06:29] LABS: Anisocytosis (M) Present; Poikilocytosis (M) Present; Toxic Granulation Present
[2020-10-16 06:40] LABS: Glucose,Whole Blood 158 mg/dL (75-99)
[2020-10-16] MEDS: SYMBICORT 160-4.5 MCG INHALER INHALATION SCH (07:17)
[2020-10-16] MEDS: ALBUTEROL HFA INHALER INHALATION SCH ×4 (07:17→19:21)
--- NOTE | 2020-10-16 07:25 | XR ---
EXAMINATION TYPE: XR chest 1V DATE OF EXAM: 10/16/2020 CLINICAL HISTORY: Difficulty breathing and pneumonia progress study. TECHNIQUE: Single AP portable semiupright view of the chest is obtained. COMPARISON: Chest x-ray from one day earlier and older studies. FINDINGS: Stable tracheostomy tube and right internal jugular large bore dialysis catheter. Bilateral multifocal and confluent opacities redemonstrated. Heart size stable and mildly enlarged. O sseous structures are intact. IMPRESSION: Persistent bilateral multifocal and confluent opacities consistent with covid-19 infectio n and/or ARDS. No significant change from most recent x-ray.
[2020-10-16] MEDS: ZINC SULFATE 220 MG CAP PO SCH (08:33)
[2020-10-16] MEDS: DEXAMETHASONE SOD PHOSPHATE 4 MG/ML 1 ML VIAL IV SCH (08:33)
[2020-10-16] MEDS: CHOLECALCIFEROL 25 MCG (1000 IU) TABLET PO SCH (08:34)
[2020-10-16] MEDS: SODIUM BICARBONATE TAB 650 MG TAB PO SCH ×3 (08:34→20:30)
[2020-10-16] MEDS: ENOXAPARIN 40 MG/0.4 ML SYRINGE SQ SCH (08:34)
[2020-10-16] MEDS: PANTOPRAZOLE 40 MG/10 ML VIAL IVP SCH (08:34)
[2020-10-16] MEDS: ASCORBIC ACID 500 MG TAB PO SCH ×2 (08:34→20:30)
[2020-10-16] MEDS: SEVELAMER 800 MG TAB PO SCH ×3 (08:34→17:02)
--- NOTE | 2020-10-16 09:04 | P.PN ---
Subjective 10/16/2020, the patient is being seen for a follow-up. This is a unfortunate case of 35-year-old female patient with COVID-19 related pneumonia and ARDS. The patient has been in ARDS for more than 3 weeks for now and the patient remains on a mechanical ventilator. This morning, the patient is sedated with propofol running at 70 mcg/kg per minute and the patient is also on fentanyl at 3 mg/kg/h and the patient is paralyzed with rocuronium at 7 mcg/kg per minute. The patient remains on a mechanical ventilator. Her [id number] is 2 out of 4. She is an assist-control mode with a tidal volume of 325 with a rate of 36 and FiO2 of 70% with a PEEP of 18. Her chest x-ray still showing diffuse bilateral pulmonary infiltrates consistent with ARDS. The patient is a tracheostomy tube in place which is a #7 home Bivona. Peak airway pressures 47. The plateau airway pressures 42. The blood gases from today shows a pH of 7.21 with a pCO2 of 51 and pO2 of 109. On this, the FiO2 will be kept at 70%. I'm going to drop the PEEP down to 16 and the Doppler tidal volume down to 300 and repeat a blood gas. Meanwhile, hemodynamically, the patient is on a low dose of norepinephrine infusion. The patient is producing urine output. The patient is receiving almost daily dialysis. The last session of dialysis was at 2020 and the patient had total of 4 L of fluid removed. Overall, she seems to be still having signs of fluid overload. She remains quite edematous and she has edema in all 4 extremities. Note that due to her ARDS, the patient was receiving on and off for morning and ultimately this procedure was stopped as the patient sustained an injury to her eye, corneal injury and the patient is currently in a supine body position. Note that chronic has become more difficult as the patient had a chicken from the tube in place. In terms of her ARDS, the patient is on Decadron 4 mg on a daily basis. The patient has received excessive amount of steroids during the course of his hospitalization and the steroids were gradually weaned off the Decadron 4 mg on a daily basis. She is also on Lovenox for DVT prophylaxis dose of 40 mg on a daily basis. She is receiving IV fluids at [facility]. Enteral feeding for nutritional support is in the form of vital high protein at the rate of 10 mL an hour. Currently she has a arterial line in the left radial artery and she also has history of PICC line in her right upper extremity. The patient also has a dialysis port in her right IJ. She is currently not receiving any antibiotics , she is afebrile. All of the cultures during this current hospitalization has been negative. Objective - Vital Signs Vital signs: Vital Signs Temp 98.7 F 10/16/20 04:00 Pulse 131 H 10/16/20 07:00 Resp 26 H 10/16/20 07:00 BP 141/81 10/16/20 07:00 Pulse Ox 97 10/16/20 07:00 Intake & Output 10/15/20 10/16/20 10/16/20 18:59 06:59 18:59 Intake Total 4687.747 3786.985 100 Output Total 0 Balance 7571.505 7517.985 100 Weight 118.3 kg Intake: IV 156 289 0.9 Normal Saline 36 243 Pressure Bag Sodium Chloride 0.9% 500 120 46 ml 500 ml @ 10 mls/hr IV .Q24H [facility] Rx#:[id number] Intake, IV Titration 962.300 877.985 100 Amount Cisatracurium 200 mg In 217.539 Sodium Chloride 0.9% 180 ml @ 1 MCG/KG/MIN 7.308 mls/hr IV .Q24H [facility] Rx#: [id number] Norepinephrine 8 mg In 154.761 Sodium Chloride 0.9% 250 ml @ 0.05 MCG/KG/MIN 11. 204 mls/hr IV .Q23H2M [facility] Rx#:[id number] Rocuronium 400 mg In 140.000 Sodium Chloride 0.9% 100 ml @ 5 MCG/KG/MIN 12.201 mls/hr IV .[id number] [facility] Rx #:[id number] fentaNYL (PF) 2,500 mcg 250 484.785 In Sodium Chloride 0.9% 200 ml @ Per Protocol IV .Q0M [facility] Rx#:[id number] propofoL 1,000 mg In 200 393.20 100 Empty Bag 1 bag @ Per Protocol IV .Q0M [facility] Rx#: [id number] Tube Feeding 120 130 Other 60 90 Output: Urine 0 Other: Voiding Method Incontinent ABP, PAP, CO, CI - Last Documented Arterial Blood Pressure 87/54 - Exam GENERAL EXAM: Sedated, 35-year-old female patient, on assist control mode of ventilation , sedated, paralyzed HEAD: Normocephalic/atraumatic. EYES: Normal reaction of pupils, equal size. Conjunctiva pink, sclera white. NOSE: Clear with pink turbinates. THROAT: No erythema or exudates. NECK: Right internal jugular hemodialysis catheter placed. Tracheostomy tube secured in place. The patient has Bivona #8. No masses, no JVD, no thyroid enlargement, no adenopathy. CHEST: No chest wall deformity. Symmetrical expansion. LUNGS: Equal air entry with bilateral crackles CVS: Regular rate and rhythm, normal S1 and S2, no gallops, no murmurs, no rubs ABDOMEN: PEG tube exit site clean and dry. No hepatosplenomegaly, normal bowel sounds, no guarding or rigidity. EXTREMITIES: No clubbing, no edema, no cyanosis, 2+ pulses and upper and lower extremities. MUSCULOSKELETAL: Muscle strength and tone normal. SPINE: No scoliosis or deformity SKIN: No rashes CENTRAL NERVOUS SYSTEM: Patient is sedated with propofol , fentanyl and the patient is also paralyzed - Labs CBC & Chem 7: 10/16/20 05:32 10/16/20 05:32 Labs: Abnormal Lab Results - Last 24 Hours (Table) 10/15/20 10/15/20 10/15/20 Range/Units 12:17 12:20 14:00 WBC (3.8-10.6) k/uL RBC (3.80-5.40) m/uL Hgb (11.4-16.0) gm/dL Hct (34.0-46.0) % RDW (11.5-15.5) % Neutrophils # (Manual) (1.3-7.7) k/uL Lymphocytes # (Manual) (1.0-4.8) k/uL Monocytes # (Manual) (0-1.0) k/uL Metamyelocytes # (Man) (0) k/uL ABG pH 7.14 L* (7.35-7.45) ABG pCO2 60 H (35-45) mmHg ABG pO2 (83-108) mmHg ABG HCO3 20 L (21-25) mmol/L ABG O2 Saturation (94-97) % Sodium (137-145) mmol/L Carbon Dioxide (22-30) mmol/L BUN (7-17) mg/dL Creatinine (0.52-1.04) mg/dL Glucose (74-99) mg/dL POC Glucose (mg/dL) 215 H (75-99) mg/dL Procalcitonin 3.32 H (0.02-0.09) ng/mL 10/15/20 10/15/20 10/16/20 Range/Units 17:27 23:59 05:07 WBC (3.8-10.6) k/uL RBC (3.80-5.40) m/uL Hgb (11.4-16.0) gm/dL Hct (34.0-46.0) % RDW (11.5-15.5) % Neutrophils # (Manual) (1.3-7.7) k/uL Lymphocytes # (Manual) (1.0-4.8) k/uL Monocytes # (Manual) (0-1.0) k/uL Metamyelocytes # (Man) (0) k/uL ABG pH 7.21 L (7.35-7.45) ABG pCO2 51 H (35-45) mmHg ABG pO2 109 H (83-108) mmHg ABG HCO3 20 L (21-25) mmol/L ABG O2 Saturation 97.1 H (94-97) % Sodium (137-145) mmol/L Carbon Dioxide (22-30) mmol/L BUN (7-17) mg/dL Creatinine (0.52-1.04) mg/dL Glucose (74-99) mg/dL POC Glucose (mg/dL) 199 H 147 H (75-99) mg/dL Procalcitonin (0.02-0.09) ng/mL 10/16/20 10/16/20 10/16/20 Range/Units 05:32 05:32 06:28 WBC 18.9 H (3.8-10.6) k/uL RBC 2.55 L (3.80-5.40) m/uL Hgb 7.5 L (11.4-16.0) gm/dL Hct 22.8 L (34.0-46.0) % RDW 17.1 H (11.5-15.5) % Neutrophils # (Manual) 15.30 H (1.3-7.7) k/uL Lymphocytes # (Manual) 0.38 L (1.0-4.8) k/uL Monocytes # (Manual) 1.51 H (0-1.0) k/uL Metamyelocytes # (Man) 1.13 H (0) k/uL ABG pH (7.35-7.45) ABG pCO2 (35-45) mmHg ABG pO2 (83-108) mmHg ABG HCO3 (21-25) mmol/L ABG O2 Saturation (94-97) % Sodium 135 L (137-145) mmol/L Carbon Dioxide 19 L (22-30) mmol/L BUN 25 H (7-17) mg/dL Creatinine 1.36 H (0.52-1.04) mg/dL Glucose 143 H (74-99) mg/dL POC Glucose (mg/dL) 158 H (75-99) mg/dL Procalcitonin (0.02-0.09) ng/mL Assessment and Plan Plan: 1 Acute hypoxic respiratory failure secondary to COVID-19 pneumonia/ARDS, transferred to the intensive care unit on 09/11/2020 and intubated and placed on mechanical ventilator on 09/11/2020. Patient received 1 dose of Remdesivir on 09/11/2020, however based on her quick progression of her hypoxic respiratory failure she received Tocilizumab 800 mg on 09/11/2020. Tracheostomy and PEG tube placed on 09/18/2020. Patient remains in ARDS with diffuse but the port infiltrates. We are still allowing permissive hypercapnia, low tidal volume ventilation. Will drop the PEEP further and a tidal volume further to lower her peak and static lower pressures. Chest x-ray remains unchanged. The patient remains sedated and she is on a combination of propofol and fentanyl. The patient remains on Decadron 4 mg IV every a. 2 Acute kidney injury related to ATN, nephrology has been consulted, ultrasound of the kidneys showed no evidence of hydronephrosis. Patient was initiated on hemodialysis on 09/14/2020. Permacath placed 09/20/2020. Patient is undergoing daily dialysis. Hemodialysis was on 10/14/2020. 3 diabetes mellitus, insulin-dependent and the patient is currently on insulin sliding scale coverage with NovoLog 4 obesity with a BMI of 52.7 5 lovenox prophylaxis dose of 30 mg subcu every 24 hours 6 hypotension, borderline, with minimal amount of pressors requiring for hemodynamic support 7 Corneal injury, punctate keratitis, left eye 8 Anemia of chronic disease, post 1 unit rbc on 10/04/2020 9 Generalized anxiety disorder. Plan Dropped the PEEP to 15 and increase the tidal volume to 300 paralytic holiday today TG level today HD today Check blood gases at noontime Continue Decadron 4 mg IV every 24 hours Lovenox 30 mg subcu every 24 hours Continue enteral feeding for nutritional support,vital HP Condition is critical. This is a critically care evaluation that was on a more than 30 minutes.
[2020-10-16] MEDS: SODIUM CHLORIDE 0.9% 500 ML 500 ML IV SCH (10:07)
[2020-10-16] MEDS: NOREPINEPHRINE 8 MG in SODIUM CHLORIDE 0.9% 250 ML IV SCH (10:18)
--- NOTE | 2020-10-16 11:13 | P.PN ---
Subjective Progress Note Date: 10/16/20 HISTORY OF PRESENT ILLNESS 35-year-old female patient of Dr. Arroyo with past medical history of type 2 diabetes comes in with acute shortness of breath associated with high light s ugars. Patient on admission was found to have a fever of 101.5 pulse rate 125 respiratory rate 20. Blood pressure 132/106. On chest x-ray obtained in the ER suggestive of bilateral infiltrates concerning for call with pneumonia. COVID PCR was positive. On admissions patient had an ABG with a pH of 7.14 pCO2 of 20, pO2 of 59, bicarb of 7. Patient's blood sugar on admission was 424 on assessment today patient's blood work patient had a sodium 135 potassium 5.4 chloride 123 bicarb less than 5 and creatinine 0.73. D-dimer was elevated on admission patient 9 28 patient given 1 L of IV fluids followed by normal saline running at 200 mL/h. Patient was positive for acetone on admission. She will anion gap closed and was switched to D5NS. Insulin drip was continued during the night and was switched to patient's home medication this morning. One dose of remdesiver was ordered. Apparently around noon, A- team was called on the patient secondary to hypoxia patient's oxygen saturation dropped to the 70s and 80s on 100% nonrebreather. Patient was switched to BiPAP on 18/12 and is doing better o FiO2 of 80%. ABG was obtained and ph was 7. 14 pCO2 of 28 bicarb of 7 pO2 of 17. Patient noted to have uncompensated metabolic acidosis with compensated respiratory alkalosis. Stat dose of 1 amp bicarb was given and followed by sodium bicarbonate drip. Insulin drip restarted. Patient's initiated on dexamethasone 6 mg IV twice a day. Potassium phosphate ordered as phosphorus is low. Patient's repeat blood gases suggest a pH of 7.25, CO2 32 pO2 of 72 bicarb 14. I will not normal saline at 100 mL/h as patient's anion gap has increased. Patient given 1 dose of 2 mg of morphine with improvement in respiratory rate. One dose of Ativan 0.5 mg was given. Xanax 0.25 twice a day along with Ativan 0.5 IV every 6 hours ordered for the patient. Vitals were evaluated patient pulse 129 [id number]. She was moved to the ICU. Precedex drip was initiated. Lopressor was initiated at 25 twice a day. Metoprolol tartrate 5 mg IV every 6 hours. Systolic blood pressure more than 160. Started chest x-ray was obtained and suggest stable bilateral consolidation suggestive of COVID-19 pneumonia. 09/12 patient is seen in the ICU is currently mechanically ventilated and sedated on vent settings of respiratory rate 36, tidal volume 375 FiO2 80% PEEP of 18.. Vital signs reviewed patient had a temp of 100.4 pulse 150 respiratory rate 36 oxygen saturation 95% on 80% on fio2 .'s labs are reviewed which patient had a d-dimer 1.84 that is increased to 14.3. Arterial Blood gas suggest ph 7.35, CO2 40, po2 62, . Her BMP suggest a sodium 135 potassium 3.7 chloride 112 bicarb 21 creatinine 1.57 for calcitonin is 3.5 CRP is increased from 8.78.2 LDH is increased to 2614. Patient remains on Pneumovax, propofol drip. Lovenox increased to 50 subcu twice a day. Patient received 2 L of IV fluids. Continue IV fluids at 100 mL/h. Bicarb drip discontinued patient initiated on Zosyn 3.375 every 8 hours. Continue insulin drip at 4 units per hour. Patient is currently in prone positioning 09/13: Patient evaluated in the ICU remains on Ventilation continues to be sedated, in prone position. Vent settings are respiratory rate 36, tidal vital 375, FiO2 70% PEEP of 18. ABG shows pO2 of 82, PCO2 of 39, pH is 7.19. Latest labs show WBC 11.1, hemoglobin 13.2, d-dimer still pending, but yesterday was up to 14.3. Creatinine up to 3.4, BUN 24 sodium 137, potassium 4.0. Patient's urine output has been low, nephrology on consult. Bicarb drip increased to 100 miles an hour, receiving another liter of normal saline, she did have a ultrasound that showed unremarkable bilateral kidneys. Repeat chest x-ray showed bilateral lung infiltrates that are stable. Anion gap has closed, will start Lantus 10 units at at bedtime Novolog every 6 hours. 09/14: Patient is seen in the ICU, still currently mechanically ventilated and sedated. She continues in the prone position. Her oxygen quickly drops if she is not in prone. Patient's kidney function has worsened. Laboratory values show creatinine of 4.87, BUN 33, LDH 2191, C-reactive protein 2.7. ABG shows pH 7.32, pO2 of 60, pCO2 43. Patient is making almost no urine overnight. Nephrology is following patient continues on cefepime for urinary tract infection, culture is still pending. Vascular has been consulted for placement of temporary hemodialysis catheter for plans for dialysis. 09/15: Patient evaluated in the ICU, continues to be mechanically ventilated and sedated on assist control ventilation rate of 36, tidal volume 375, FiO2 100% and PEEP of 18. ABG today shows pO2 58, pCO2 of 45, and pH 7.35. She continues on tube feedings. Yesterday patient underwent ultrasound-guided right internal jugular non-tunneled hemodialysis catheter placement. Patient underwent hemodialysis treatment last night and plans have another hemodialysis treatment today. She continues to make almost no urine. She continues on cefepime for antibiotic coverage, and continues on Decadron and Lovenox. 09/16: Patient seen on follow-up remains in the ICU mechanically ventilated and sedated. She continues on assist control rate of 36, tidal volume 375, FiO2 100% and PEEP of 20. PEEP had to be increased due to patient had to be in supine position for dialysis, will go back to prone position once dialysis is complete. ABG shows pH 7.32, pCO2 49, PaO2 61. Laboratory values showed WBC 11.2, hemoglobin 11, sodium 134, creatinine 4.44, BUN 38. Urine culture shows no growth, blood cultures show no growth to date. Repeat chest x-ray shows bilateral pleural effusions, correlate for ARDS, pulmonary edema, diffuse pneumonia, findings are stable from last exam. Patient does not require any pressors, blood pressure 133/57, heart rate 78. 5/16: Patient was evaluated in the ICU today for follow-up. She continues to be intubated and on mechanical ventilation. Current vent settings are tidal volume 375, FiO2 100% and PEEP of 20. ABG shows pH 7.37, pCO2 40, pO2 102. She continues with intermittent prone positioning. Patient continues to have almost no urine output, maintained on dialysis. Patient received dialysis yesterday without complication. Laboratory values revealed WBC 10.3, hemoglobin 10.4, sodium 132, potassium 3.1, BUN 33, creatinine 4.29, LDH 1913, C-reactive protein 1.3. Urine and sputum cultures are negative, blood cultures show no growth to date. Consult placed to dietary to start TPN[ ] 09/18: She remains in the intensive care unit intubated and on mechanical ventilation with tidal volume 375, FiO2 60 and PEEP of 20. Patient is being prone to daily at approximately 16 hours per day. Pulmonary medicine has added in Dr. Zhang to do PEG tube and trach today. Patient is not on vasopressors. Repeat blood work reveals WBC 12.6, hemoglobin 9.8, platelet count 212. Sodium 133, potassium 3.2, chloride 102, CO2 21, BUN 35 and creatinine 4.12. Blood sugar 126. Patient underwent hemodialysis yesterday with removal of 2 L and is scheduled again today with goal of 2-3 L and is scheduled again tomorrow. 09/19: She is scheduled for hemodialysis today and is off fentanyl temporarily. Patient is status post trach and PEG tube yesterday. And she remains on mechanical ventilation. Pulse ox 93-95%. She has been afebrile, heart rate 64, respiratory rate 36, blood pressure 115/50. Fentanyl is off to improve blood pressure for hemodialysis which is scheduled for today. Contacted vascular surgery about permanent hemodialysis catheter. Repeat blood work reveals WBC 14.3, hemoglobin 9.6, platelet count 200. D-dimer 6.48. LDH 1686. C-reactive protein 1.1. BUN 34 creatinine 3.81. Sodium 130, potassium 3.5, chloride 101, CO2 18. Blood sugars running between 101 198. Plan is to wean off Pneumovax today. Patient remains on insulin drip. Repeat chest x-ray reveals bilateral multifocal confluent opacities consistent with COVID-19. Some improved aeratio n periphery of the left lung and worsening opacities throughout the right lung. 09/20: She remains in the intensive care unit on mechanical ventilation. She has been afebrile, heart rate 65, respiratory rate 37, blood pressure 121/70, pulse ox 91-99%. Repeat blood work reveals WBC 14.5, hemoglobin 9.1, platelet count 216. D-dimer 6.13. Sodium 133, potassium 3.1, chloride 102, CO2 18, BUN 35 and creatinine 4.27. Blood sugars running between 128 and 143. LDH 1717. C- reactive protein 1.7. Patient remains on insulin drip which will be transitioned to NovoLog scale every 6 hours. Patient is scheduled for permanent hemodialysis catheter placement today with vascular surgery. Repeat chest x-ray reveals stable diffuse bilateral interstitial and airspace disease. Possible small right effusion. His work is following for transfer to intermediate care facility. Do not anticipate discharge until next week. 09/21: Patient is undergoing hemodialysis. She remains on mechanical ventilation with tidal volume 375, FiO2 down to 45 and PEEP was decreased to 15. Patient is continued on propofol, fentanyl drips. She is on tube feedings at goal. Patient was taken off insulin drip yesterday and on scale only but blood sugars are running in the 200s, Levemir scheduled at bedtime will be added. Other blood work reveals WBC 13.3, hemoglobin 8.7, platelet count 192. Sodium 137, potassium 3.6, chloride 107, CO2 18, BUN 34 and creatinine 4.21. Repeat chest x-ray is stable. 09/22: She remains in the intensive care on mechanical ventilation with tidal volume 375, FiO2 of 50 and PEEP of 10. Pulse ox is running 96%. She is afebrile, heart rate in the 50s, respiratory rate 36, blood pressure 100/64. Repeat blood work reveals WBC 16.5, hemoglobin 8.9, platelet count 213. Sodium 134, potassium 3.7, chloride 103, CO2 21, BUN 34 and creatinine 3.89. Blood sugars running in the 200s to 324. Levemir increased to 16 units at bedtime and continue NovoLog scale every 6 hours. Patient is on tube feedings at goal. She has a Haley catheter in with a scant amount of dark/brown urine. Fecal management system is in place. Repeat chest x-ray reveals diffuse bilateral airspace infiltrates persist unchanged. Patient is scheduled for hemodialysis tomorrow morning on Friday. 09/23: Patient remains on mechanical ventilation with tidal volume 3.75, FiO2 50 and PEEP of 10. monitoring specialist sinus rhythm. She has no urine output. Fecal management system is in place. She is undergoing dialysis at this time with plan for removal of 2-1/2 L. She has been afebrile, heart rate in the 50s, respiratory rate 36, blood pressure 108/76 and pulse ox 89%. WBC 13.6, hemoglobin 9.1, platelet count 194. Sodium 136, potassium 3.0 and was replaced, chloride 106, CO2 21, BUN 49 creatinine 5.31. Blood sugars are running between 182 and this morning 194. Patient was still in the 200s and 300s. Levemir last evening was increased to 16 units. Patient remains on propofol and fentanyl drips. Lovenox was increased to 60 mg twice daily. 09/24: PEEP was increased today to 20, tidal volume is at 375 and FiO2 of 50%. Patient has been afebrile. She has been started on levo fed. Repeat chest x- ray reveals bilateral multifocal confluent opacities consistent with Covid 19 or ARDS redemonstrated. Nephrology will plan dialysis for tomorrow for 3 L. Patient remains on propofol fentanyl and Nimbex. WBC 12.5, hemoglobin 9.8, platelet count 161. D-dimer 13.3. Sodium 132, potassium 3.4, chloride 102, CO2 20, BUN 48 and creatinine 4.67. Blood sugars extremely elevated to 96-409. LDH 2217. 09/25: Patient remains in the intensive care unit on mechanical ventilation with tidal volume 375, FiO2 50 and PEEP of 20. Patient is afebrile, heart rate 61, respiratory rate 36, blood pressure 102/56, pulse ox 97%. Repeat blood work reveals WBC 9.3, hemoglobin 8.5 and platelet count 171. Sodium 130, potassium 3.7, chloride 100, CO2 20, BUN 61 creatinine 5.65. Blood sugars have been elev ated up to 455. Levemir increased to 20 units twice daily, NovoLog 5 units every 6 hours and continue NovoLog scale. Patient is scheduled for hemodialysis today. Repeat chest x-ray reveals bilateral multifocal and confluent opacities. Decadron and Lovenox dosing change by pulmonary. Patient is off norepinephrine. 09/26: Patient remains in the intensive care unit on mechanical ventilation with tidal volume 375, FiO2 50 and PEEP of 15. She has been afebrile, heart rate 91, blood pressure 114/68, pulse ox 99%. monitoring specialist sinus rhythm. 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 Sodium 134, potassium 3.6, chloride 102, CO2 22, BUN 41 creatinine 4.21. Patient has improved blood sugars this morning running 150s and 160s. Diabetic medications were adjusted yesterday. Patient is awake and alert and interacting. Yesterday, patient had PICC line inserted by interventional radiology. Repeat chest x-ray reveals diffuse airspace infiltrates in both lung ann appear to progress slightly in the interval. 09/27: Patient remains in intensive care unit on mechanical ventilation with improvement of settings with tidal volume 375, FiO2 decreased to 40 and PEEP decreased to 10. Patient is on hemodialysis every other day and plan to remove 3 L today. Patient is more awake and alert. She is slow to respond but is able to follow simple commands. Blood sugars are running between 84 and 123. Repeat blood work reveals WBC 7.1, hemoglobin 8.1, platelets 152. Sodium 135, potassium 3.6, chloride 103, CO2 21, BUN 53 and creatinine 5.88. Repeat chest x-ray revealed cardiomegaly and pulmonary edema. Patient is on tube feedings:. Patient is not require vasopressors and is off sedation. Fecal management system remains in place for brown liquid stool. C. difficile was negative. 09/28: Patient remains on mechanical ventilation with tidal volume 375, FiO2 increased to 80 and PEEP increased to 18. Patient had a rough night was very anxious, no pain. Xanax 0.25 mg 3 times daily was added. There is concern for pulmonary embolism for which patient was started on heparin drip, she is unable to undergo CAT scan. Venous Doppler bilateral lower extremities was nondiagnostic due to extensive edema in obese patient but minimal imaging of the popliteal veins does show flow. Repeat echocardiogram has been ordered. Cefepime has also been ordered at 1 g IV piggyback every 24 hours as well as vancomycin, pharmacy dosing. Patient is back on fentanyl drip, propofol drip and norepinephrine. Blood sugars are elevated and insulin Levemir will be i ncreased to 25 mg twice daily. Ferrlecit infusion has been ordered by nephrology for 4 days. Patient is undergoing hemodialysis today.temperature max 100.2, heart rate 134, respiratory rate 34, blood pressure 120/65, pulse ox 94%. monitoring specialist is sinus tachycardia. Repeat blood work reveals WBC 16.9, hemoglobin 9.7, platelet count 216. D-dimer 8.81. Sodium 134, potassium 3.8, chloride 99, CO2 25, BUN 43 and creatinine 5.36. Blood sugars in the 200s. AST 40. 09/29 Patient had declined more last 48 hours require more sedation, patient is doing hemodialysis, respiratory failure is quite bit worse this time. Patient was inquired the pain is well back on fentanyl drip. Her vent set up with PEEP is limited but higher. No new finding on culture and her chest x-ray continues shows diffuse infiltrate persistent although there is a moderate interval improvement. 09/30 patient's was seen and evaluated. PEEP was reduced to 11 as patient is maintaining good saturation at the current vent settings. 10/01 patient was seen at bedside. She is currently on assist control rate of 28 white tidal volume 350 FiO2 50% and PEEP of 10 which has been reduced by pulmonary as patient name cleaning her oxygen saturation. Arm blood gas was obtained with a pH of 7.35 pCO2 37 pO2 of 63. She remains hemodynamically stable with no need for pressors. Labs were reviewed patient's BUN is 29 crea tinine 3.93 glucose 122 albumin 2.2 sodium 131 chloride 19 hemoglobin is downtrending with a Hb of 7.3 no leukocytosis 7.1. Patient's urine output is minimal at this time. Her rate has increased to 129 and is currently on positive fluid balance even with dialysis. Last dialysis was done yesterday. Continue enteral feeding currently at goal. Antibiotic has been discontinued and continues to remain on DEXA methicillin 4 mg IV daily. 10/02 patient continues to be on trach support with mechanical ventilation. Patient was evaluated by chief operator lock tender and was switched to VC control as patient was noted to be double stacking on and off throughout the night. Respiratory rate continue to 28 tidal volume increased to 400 with a PEEP for Dr. Downey. Patient is maintaining oxygen saturation 91% on the current setting. According to the nurse bedside patient saturation drops significantly or she is moved or her sedation is dropped. Patient is currently on propofol drip, fentanyl drip. She did underwent dialysis today and was able to maintain her low pressure without the need of pressors. Labs reviewed today suggest a WBC of 6.7 hemoglobin of 7.0 and d-dimer 3.9 bicarb 17 BUN 38 creatinine 4.8. LDH is 964. Sodium 1:30 likely secondary to volume overload. Urine sodium and urine osmolality ordered. Patient's glucose this morning is 146. Continue to remain on enteral feeding. Urine output is reduced. Fall catheter will be placed today. Continue to remain on dialysis. 10/03: Patient remains on mechanical ventilation and is back on propofol and fentanyl drips. Patient is currently on VC control with tidal volume 400, FiO2 55 and PEEP of 12. Patient still is not making any urine and is dialysis dependent with next treatment planned for tomorrow with removal of 3-3-1/2 L. PEG tube feedings are at goal. Fecal management system remains in place. At the time of evaluation, patient is off levophed. Repeat chest x-ray reveals stable diffuse bilateral airspace disease correlate for ARDS, pulmonary edema or diffuse pneumonia. Temperature max last evening was 101. Temperature currently 99, heart rate 106, respiratory rate 32, blood pressure 101/50, pulse ox 86%. Repeat blood work reveals WBC 6, hemoglobin 7.4, platelet count 160. D-dimer 4.05. Sodium 133, potassium 3.5, chloride 100, CO2 23, BUN 31 creatinine 3.8. Blood sugars are running between 100 and 170. Ferritin 1514. Liver function test normal. LDH 1016, C-reactive protein 13.6. Prognosis remains guarded. 10/04: Patient remains intubated on mechanical ventilation with tidal volume 400, FiO2 65, PEEP of 14. Patient continues to run fevers and repeat blood culture and urine and urine culture ordered for today. Haley catheter has been removed this patient has no significant urine output at about 20 mL per shift. BladderScan is monitored for greater than 300 and the patient is straight cathed. Hemoglobin is 6.8 and she has been ordered 41 unit of packed RBCs today. She is currently on propofol and fentanyl drips. She is scheduled for hemodialysis today. WBC 4.5, hemoglobin 6.8, platelet count 151. D-dimer 3.28. Sodium 132, potassium 4.1, chloride 100, CO2 22, BUN 37 creatinine 4.74. Blood sugars running between 97 and 110. Ferritin 1801. LDH 859. C-reactive protein 14.4. Chest x-ray reveals correlate for pneumonia, edema, ARDS. Prognosis remains guarded. 10/05: Patient remains in intensive care unit currently on mechanical ventilation with tidal volume 400, FiO2 was increased to 100 and PEEP is at 14. She continues to run fevers which have worsened with temperature max 103.1. She has been tachycardic in the 130s, blood pressure is marginal but not on vasopressors. Pulse ox currently 92%. Repeat blood work reveals WBC 5.5, hemoglobin 7.6, platelet count 190. D-dimer 2.7, ferritin 1770, LDH 932, C- reactive protein 21.4. Blood sugars are running between 100 1669. Electrolytes are normal. BUN 27 and creatinine 3.79. Pancultures were done yesterday including a straight cath for urine culture, sputum culture and blood culture. Arterial line was removed as well as midline. She is currently on propofol, fen tanyl and started on Nimbex today. 10/06: Patient remains in the intensive care unit. Today patient in prone position and remains on mechanical ventilation with tidal volume 350, FiO2 65 and PEEP of 14. Her last documented fever was yesterday at 2 PM. Heart rate is in the 120s, respiratory rate 32, pulse ox 88-92%. CBC is unremarkable. Electrolytes are normal. BUN 30 creatinine 2.93. Blood sugars are running between 135 and 164. Cultures from October 04: Blood culture no growth, sputum culture finalized, urine culture finalized. Catheter tip culture is in process. Repeat chest x-ray shows bilateral interstitial infiltrates. Patient is on tube feedings of Nepro at goal of 30 ML's per hour. Patient underwent dialysis yesterday and is scheduled for repeat dialysis today. 10/07: Patient maintains in the intensive care unit intubated and on mechanical ventilation. She is receiving hemodialysis this morning has been every day. Plan is to remove 2-1/2 L today. Vent settings have changed today with tidal volume 350, FiO2 was increased to 100% and PEEP remains at 14. She has been continued on Nimbex, fentanyl, norepinephrine and propofol. Plan is to prone position patient following dialysis. Repeat chest x-ray reveals worsening interstitial infiltrates. BUN is 26 and creatinine 2.59. LDH 955, C-reactive protein 22.1. Prognosis remains poor. 10/08: Patient remains in intensive care unit intubated and on mechanical ventilation with tidal volume 350, FiO2 60, PEEP of 14. She is pronating today. She is scheduled for hemodialysis on a daily basis. She has been afebrile, heart rate 112, respiratory rate 36, blood pressure 161/88, pulse ox 93%. Repeat blood work reveals WBC 9.9, hemoglobin 9.1, platelet count 320. Sodium 133, potassium 5.3, chloride 100, CO2 20, BUN 29 creatinine 2.44. Blood sugar running between 102 and 139. LDH 1026, C-reactive protein 19.7. 10/09: Patient is undergoing dialysis this morning. She continues to be intubated and on mechanical ventilation with tidal volume 350, 270 and PEEP of 14. Patient is also on propofol, Nimbex, norepinephrine and fentanyl drips. Repeat chest x-ray reveals persistent bilateral multifocal and confluent opacities consistent with Covid 19. She is afebrile, heart rate 116, respiratory rate 36, blood pressure 120/65, pulse ox 91%. Repeat blood work reveals WBC 5.4, hemoglobin 9.2, platelet count 216. D-dimer 2.67, ferritin 2568, LDH 794, C- reactive protein 13.9. Blood sugars have been running 90-104. Creatinine 1.64. She is on daily dialysis treatment. 10/10: She remains in the intensive care unit. She is now out of isolation as a repeat Covid test came back negative. She remains on mechanical ventilation with tidal volume 350, FiO2 70 and PEEP of 14. Patient is also on Nimbex, propofol, norepinephrine, fentanyl drips. She is on PEG tube feedings at goal and tolerating well. Repeat blood work reveals WBC 7.8, hemoglobin 7.5, platelet count 267. Sodium 139, potassium 3.9, chloride 109, CO2 20, BUN 20 creatinine 1.29. Blood sugars are running between 76 and 102. Scheduled Aiyana Log decreased to 3 units. Repeat chest x-ray reveals moderate cardiomegaly and continued pulmonary edema. Slight interval improvement. Patient is continued on daily hemodialysis. 10/11: Patient remains in intensive care unit on mechanical ventilation with tidal volume 325, FiO2 70, PEEP 14. She is currently being prone. She underwent hemodialysis this morning with removal of 4 L of fluid with plan to continue daily treatment. She is currently on Nimbex, fentanyl and propofol. No vasopressor at this time. Fecal management system remains in place. She is on tube feedings currently at hold due to prone positioning. Patient has been afebrile, heart rate 116, respiratory rate 36, blood pressure 100/58, pulse ox 93-96%. Repeat blood work reveals WBC 9.3, hemoglobin 8.1, platelet count 276. Sodium 136, potassium 4.3, chloride 103, CO2 20, BUN 20 creatinine 1.14. Blood sugars running between 133 and 202. 10/12: Patient remains in the intensive care unit. She is undergoing hemodialy sis this morning. She's been afebrile, heart rate in the 120s, respiratory rate 32, blood pressure 102/65. She is not on vasopressors. She is continued on Nimbex, fentanyl and propofol. Vent settings are currently tidal volume 325, FiO2 70, PEEP 14. Total platelet count 273. Sodium 133, potassium 4.7, chloride 100, CO2 19, BUN 21 creatinine 0.91. Blood sugars running between 121 and 143. 10/13: Patient remain in the ICU she is on hemodialysis daily, she is still on the vent with a PEEP of 14 and FiO2 of 70. Her oxygenation is marginal pulse rate still high. Patient had scratched cornea was seen in ophthalmology decided to keep doing eyedrops along with eye patch at this point. Prognosis still very bad this point. 10/14: She remains on mechanical ventilation with tidal volume 325, FiO2 70% and PEEP of 14. She did require label fed last evening for about 6 hours. She did not tolerate pronating yesterday. She is undergoing dialysis this morning with plan for removal of 4 L. Blood sugars have been low and IV fluids changed to D10 until blood sugars have recovered. Levemir and scheduled NovoLog discontinued. Patient is on tube feedings at goal there's been no change in th is. 10/15 patient remains on mechanical ventilation in the intensive care unit. FiO2 still at 70%, PEEP of 18. Blood sugars have improved since medications were adjusted. White blood cells 33.9, hemoglobin 8.5, sodium 135, BUN 19, creatinine 0.96. Patient to receive dialysis again today. Patient did run a low-grade fever throughout the night and pro calcitonin level is ordered. Chest x-ray showed continued diffuse bilateral airspace disease. Patient remains on tube feedings at goal. 10/16: Patient remains on mechanical ventilation with tidal volume 300, FiO2 70, PEEP of 15. Fecal management system is out. She is currently on low dose of norepinephrine. She is also on fentanyl drip, propofol drip, rocuronium drip. Heart rate is running in the 130s, sinus rhythm, blood pressure 121/63, pulse ox 95%. Patient is been afebrile. Repeat blood work reveals WBC 18.9, hemoglobin 7.5, platelet count 291. Sodium 135, potassium 4.2, chloride 101, CO2 19, BUN 25 and creatinine 1.36. Blood sugars are running between 143 and 199. Patient is on scale insulin only. Repeat chest x-ray reveals persistent bilateral multifocal and completed opacities consistent with Covid 19. REVIEW OF SYSTEMS Unable to obtain due to mechanical ventilation. PHYSICAL EXAMINATION Gen: This is is a 35-year-old black female, patient is intubated and on mechanical ventilation, appears to be comfortable. HEENT: Head is atraumatic, normocephalic. Pupils equal, round. Sclerae is anicteric. Tracheostomy midline. NECK: Supple. No JVD. No lymphadenopathy. No thyromegaly. LUNGS: Coarse bilateral rhonchi. No intercostal retractions. HEART: Regular rate and rhythm. No murmur. ABDOMEN: Soft. Bowel sounds are present. No masses. No tenderness. Fecal management system in place. EXTREMITIES: Trace bilateral pedal edema. No calf tenderness. NEUROLOGICAL: Patient is sedated. ASSESSMENT AND PLAN 1. Acute hypoxic respiratory failure secondary to Covid 19 pneumonia and possible bacterial pneumonia. Patient was intubated on September 11. She is status post 1 dose of Remdesivir and 1 dose of Tocilizumab. Continue Ventolin inhaler 4 times daily, Symbicort twice daily, Decadron 4 mg IV daily, Lovenox 40 mg subcu daily, supplements. Status post PEG tube and trach. Isolation precautions at been removed. Prone positioning held. 2. Acute diabetic ketoacidosis secondary to Covid 19 pneumonia, uncontrolled with hyperglycemia. Levemir and scheduled NovoLog discontinued due to hypoglycemia, continue NovoLog scale. Once blood sugars recover, D10 IV fluids to be discontinued. 3. Metabolic encephalopathy secondary to Covid 19 and DKA. 4. Sepsis and septic shock secondary to Covid 19 pneumonia with multiorgan fa ilure. Continue as in #1. 5. Acute metabolic acidosis secondary to acute DKA, Covid 19 and acute kidney injury. Sodium bicarb 650 mg 3 times daily, Renvela 1600 mg 3 times daily.. 6. Diabetes mellitus type 2 uncontrolled with A1c 13.6. Continue as above. 7. Hypophosphatemia status post replacement. 8. Hyperkalemia secondary to DKA, resolved. 9. Sinus tachycardia secondary to sepsis, volume deficiency. 10. Acute kidney injury secondary to ATN secondary to Covid 19 and DKA. Contin ue daily hemodialysis. Permanent dialysis catheter placed. 11. Possible acute gram-negative pneumonia versus MRSA pneumonia. Completed course of antibiotics. 12. Hypertension. 13. Morbid obesity with BMI of 53. 14. DVT prophylaxis. Lovenox. 15. GI prophylaxis. Protonix 40 mg IV push daily. CODE STATUS: Full code Prognosis poor. 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 Kimberly Boswell nurse practitioner acting as scribe for signing physician. Objective - Vital Signs Vital signs: Vital Signs Temp 98.7 F 10/16/20 04:00 Pulse 133 H 10/16/20 10:00 Resp 19 10/16/20 10:00 BP 121/63 10/16/20 10:00 Pulse Ox 95 10/16/20 10:00 Intake & Output 10/15/20 10/16/20 10/16/20 18:59 06:59 18:59 Intake Total 3138.938 3165.985 816.208 Output Total 0 Balance 7213.534 1588.985 816.208 Weight 118.3 kg 118.3 kg Intake: IV 156 289 39 0.9 Normal Saline 36 243 9 Pressure Bag Sodium Chloride 0.9% 500 120 46 30 ml 500 ml @ 10 mls/hr IV .Q24H [facility] Rx#:[id number] Intake, IV Titration 962.300 877.985 777.208 Amount Cisatracurium 200 mg In 217.539 Sodium Chloride 0.9% 180 ml @ 1 MCG/KG/MIN 7.308 mls/hr IV .Q24H [facility] Rx#: [id number] Norepinephrine 8 mg In 154.761 236.900 Sodium Chloride 0.9% 250 ml @ 0.05 MCG/KG/MIN 11. 204 mls/hr IV .Q23H2M [facility] Rx#:[id number] Rocuronium 400 mg In 140.000 112.817 Sodium Chloride 0.9% 100 ml @ 5 MCG/KG/MIN 12.201 mls/hr IV .[id number] [facility] Rx #:[id number] fentaNYL (PF) 2,500 mcg 250 484.785 241.811 In Sodium Chloride 0.9% 200 ml @ Per Protocol IV .Q0M [facility] Rx#:[id number] propofoL 1,000 mg In 200 393.20 185.68 Empty Bag 1 bag @ Per Protocol IV .Q0M [facility] Rx#: [id number] Tube Feeding 120 130 Other 60 90 Output: Urine 0 Other: Voiding Method Incontinent Incontinent ABP, PAP, CO, CI - Last Documented Arterial Blood Pressure 87/63 - Labs CBC & Chem 7: 10/16/20 05:32 10/16/20 05:32 Labs: Abnormal Lab Results - Last 24 Hours (Table) 10/15/20 10/15/20 10/15/20 Range/Units 12:17 12:20 14:00 WBC (3.8-10.6) k/uL RBC (3.80-5.40) m/uL Hgb (11.4-16.0) gm/dL Hct (34.0-46.0) % RDW (11.5-15.5) % Neutrophils # (Manual) (1.3-7.7) k/uL Lymphocytes # (Manual) (1.0-4.8) k/uL Monocytes # (Manual) (0-1.0) k/uL Metamyelocytes # (Man) (0) k/uL ABG pH 7.14 L* (7.35-7.45) ABG pCO2 60 H (35-45) mmHg ABG pO2 (83-108) mmHg ABG HCO3 20 L (21-25) mmol/L ABG O2 Saturation (94-97) % Sodium (137-145) mmol/L Carbon Dioxide (22-30) mmol/L BUN (7-17) mg/dL Creatinine (0.52-1.04) mg/dL Glucose (74-99) mg/dL POC Glucose (mg/dL) 215 H (75-99) mg/dL Procalcitonin 3.32 H (0.02-0.09) ng/mL 10/15/20 10/15/20 10/16/20 Range/Units 17:27 23:59 05:07 WBC (3.8-10.6) k/uL RBC (3.80-5.40) m/uL Hgb (11.4-16.0) gm/dL Hct (34.0-46.0) % RDW (11.5-15.5) % Neutrophils # (Manual) (1.3-7.7) k/uL Lymphocytes # (Manual) (1.0-4.8) k/uL Monocytes # (Manual) (0-1.0) k/uL Metamyelocytes # (Man) (0) k/uL ABG pH 7.21 L (7.35-7.45) ABG pCO2 51 H (35-45) mmHg ABG pO2 109 H (83-108) mmHg ABG HCO3 20 L (21-25) mmol/L ABG O2 Saturation 97.1 H (94-97) % Sodium (137-145) mmol/L Carbon Dioxide (22-30) mmol/L BUN (7-17) mg/dL Creatinine (0.52-1.04) mg/dL Glucose (74-99) mg/dL POC Glucose (mg/dL) 199 H 147 H (75-99) mg/dL Procalcitonin (0.02-0.09) ng/mL 10/16/20 10/16/20 10/16/20 Range/Units 05:32 05:32 06:28 WBC 18.9 H (3.8-10.6) k/uL RBC 2.55 L (3.80-5.40) m/uL Hgb 7.5 L (11.4-16.0) gm/dL Hct 22.8 L (34.0-46.0) % RDW 17.1 H (11.5-15.5) % Neutrophils # (Manual) 15.30 H (1.3-7.7) k/uL Lymphocytes # (Manual) 0.38 L (1.0-4.8) k/uL Monocytes # (Manual) 1.51 H (0-1.0) k/uL Metamyelocytes # (Man) 1.13 H (0) k/uL ABG pH (7.35-7.45) ABG pCO2 (35-45) mmHg ABG pO2 (83-108) mmHg ABG HCO3 (21-25) mmol/L ABG O2 Saturation (94-97) % Sodium 135 L (137-145) mmol/L Carbon Dioxide 19 L (22-30) mmol/L BUN 25 H (7-17) mg/dL Creatinine 1.36 H (0.52-1.04) mg/dL Glucose 143 H (74-99) mg/dL POC Glucose (mg/dL) 158 H (75-99) mg/dL Procalcitonin (0.02-0.09) ng/mL
[2020-10-16 11:35] LABS: Glucose,Whole Blood 189 mg/dL (75-99)
[2020-10-16] MEDS ORDERED: HEPARIN SODIUM 1,000 UN/ML (10ML VL) ONE (12:00)
[2020-10-16 12:11] LABS: ABG Base Excess -7.3 mmol/L; ABG HCO3 21 mmol/L (21-25); ABG Oxygen Saturation 94.2 % (94-97); ABG PCO2 59 mmHg (35-45); ABG PO2 88 mmHg (83-108); ABG TCO2 23 mmol/L (19-24)
[2020-10-16 12:12] LABS: ABG PH 7.17 (7.35-7.45)
--- NOTE | 2020-10-16 12:51 | P.PN ---
Subjective Progress Note Date: 10/16/20 CHIEF COMPLAINT: COVID-19 pneumonia HISTORY OF PRESENT ILLNESS: Patient is in the ICU for COVID-19 pneumonia and respiratory failure. She is status post tracheostomy and PEG tube placement with Dr. Hollis. Patient is tolerating tube feedings. Her to feedings are at goal at 30 mL per hour. Patient remains on mechanical ventilation. She is on low dose of norepinephrine. Her fecal management system is out. Otherwise there is no new significant changes. Patient did have a temp of 100.6 last nig ht. White count did decrease from 33.9-18.9 Patient seen and examined with Dr. hollis PHYSICAL EXAM: VITAL SIGNS: Reviewed. GENERAL: Well-developed in no acute distress. HEENT: No sclera icterus. Extraocular movements grossly intact. Moist buccal mucosa. Head is atraumatic, normocephalic. Tracheostomy site clean dry and intact. ABDOMEN: Soft. Nondistended. Nontender. PEG tube site clean dry and intact NEUROLOGIC: Sedated ASSESSMENT: 1. Acute hypoxic respiratory failure with prolonged mechanical ventilation due to COVID-19 pneumonia status post tracheostomy placement 2. Severe protein calorie malnutrition status post PEG tube placement PLAN: -Continue tube feedings -Continue supportive care -Continue ICU management Physician Facility Coordinator note has been reviewed by physician. Signing provider agrees with the documented findings, assessment, and plan of care. Objective - Vital Signs Vital signs: Vital Signs Temp 98.7 F 10/16/20 04:00 Pulse 131 H 10/16/20 11:15 Resp 36 H 10/16/20 11:15 BP 130/69 10/16/20 11:15 Pulse Ox 96 10/16/20 11:15 Intake & Output 10/15/20 10/16/20 10/16/20 18:59 06:59 18:59 Intake Total 9594.273 9212.985 853.061 Output Total 0 Balance 6101.023 6466.985 853.061 Weight 118.3 kg 118.3 kg Intake: IV 156 289 65 0.9 Normal Saline 36 243 15 Pressure Bag Sodium Chloride 0.9% 500 120 46 50 ml 500 ml @ 10 mls/hr IV .Q24H [facility] Rx#:[id number] Intake, IV Titration 962.300 877.985 788.061 Amount Cisatracurium 200 mg In 217.539 Sodium Chloride 0.9% 180 ml @ 1 MCG/KG/MIN 7.308 mls/hr IV .Q24H [facility] Rx#: [id number] Norepinephrine 8 mg In 154.761 241.978 Sodium Chloride 0.9% 250 ml @ 0.05 MCG/KG/MIN 11. 204 mls/hr IV .Q23H2M [facility] Rx#:[id number] Rocuronium 400 mg In 140.000 118.592 Sodium Chloride 0.9% 100 ml @ 5 MCG/KG/MIN 12.201 mls/hr IV .[id number] [facility] Rx #:[id number] fentaNYL (PF) 2,500 mcg 250 484.785 241.811 In Sodium Chloride 0.9% 200 ml @ Per Protocol IV .Q0M [facility] Rx#:[id number] propofoL 1,000 mg In 200 393.20 185.68 Empty Bag 1 bag @ Per Protocol IV .Q0M [facility] Rx#: [id number] Tube Feeding 120 130 Other 60 90 Output: Urine 0 Other: Voiding Method Incontinent Incontinent ABP, PAP, CO, CI - Last Documented Arterial Blood Pressure 97/55 - Labs CBC & Chem 7: 10/16/20 05:32 10/16/20 05:32 Labs: Abnormal Lab Results - Last 24 Hours (Table) 10/15/20 10/15/20 10/15/20 Range/Units 12:17 14:00 17:27 WBC (3.8-10.6) k/uL RBC (3.80-5.40) m/uL Hgb (11.4-16.0) gm/dL Hct (34.0-46.0) % RDW (11.5-15.5) % Neutrophils # (Manual) (1.3-7.7) k/uL Lymphocytes # (Manual) (1.0-4.8) k/uL Monocytes # (Manual) (0-1.0) k/uL Metamyelocytes # (Man) (0) k/uL ABG pH 7.14 L* (7.35-7.45) ABG pCO2 60 H (35-45) mmHg ABG pO2 (83-108) mmHg ABG HCO3 20 L (21-25) mmol/L ABG O2 Saturation (94-97) % Sodium (137-145) mmol/L Carbon Dioxide (22-30) mmol/L BUN (7-17) mg/dL Creatinine (0.52-1.04) mg/dL Glucose (74-99) mg/dL POC Glucose (mg/dL) 199 H (75-99) mg/dL Procalcitonin 3.32 H (0.02-0.09) ng/mL 10/15/20 10/16/20 10/16/20 Range/Units 23:59 05:07 05:32 WBC 18.9 H (3.8-10.6) k/uL RBC 2.55 L (3.80-5.40) m/uL Hgb 7.5 L (11.4-16.0) gm/dL Hct 22.8 L (34.0-46.0) % RDW 17.1 H (11.5-15.5) % Neutrophils # (Manual) 15.30 H (1.3-7.7) k/uL Lymphocytes # (Manual) 0.38 L (1.0-4.8) k/uL Monocytes # (Manual) 1.51 H (0-1.0) k/uL Metamyelocytes # (Man) 1.13 H (0) k/uL ABG pH 7.21 L (7.35-7.45) ABG pCO2 51 H (35-45) mmHg ABG pO2 109 H (83-108) mmHg ABG HCO3 20 L (21-25) mmol/L ABG O2 Saturation 97.1 H (94-97) % Sodium (137-145) mmol/L Carbon Dioxide (22-30) mmol/L BUN (7-17) mg/dL Creatinine (0.52-1.04) mg/dL Glucose (74-99) mg/dL POC Glucose (mg/dL) 147 H (75-99) mg/dL Procalcitonin (0.02-0.09) ng/mL 10/16/20 10/16/20 10/16/20 Range/Units 05:32 06:28 11:33 WBC (3.8-10.6) k/uL RBC (3.80-5.40) m/uL Hgb (11.4-16.0) gm/dL Hct (34.0-46.0) % RDW (11.5-15.5) % Neutrophils # (Manual) (1.3-7.7) k/uL Lymphocytes # (Manual) (1.0-4.8) k/uL Monocytes # (Manual) (0-1.0) k/uL Metamyelocytes # (Man) (0) k/uL ABG pH (7.35-7.45) ABG pCO2 (35-45) mmHg ABG pO2 (83-108) mmHg ABG HCO3 (21-25) mmol/L ABG O2 Saturation (94-97) % Sodium 135 L (137-145) mmol/L Carbon Dioxide 19 L (22-30) mmol/L BUN 25 H (7-17) mg/dL Creatinine 1.36 H (0.52-1.04) mg/dL Glucose 143 H (74-99) mg/dL POC Glucose (mg/dL) 158 H 189 H (75-99) mg/dL Procalcitonin (0.02-0.09) ng/mL 10/16/20 Range/Units 12:09 WBC (3.8-10.6) k/uL RBC (3.80-5.40) m/uL Hgb (11.4-16.0) gm/dL Hct (34.0-46.0) % RDW (11.5-15.5) % Neutrophils # (Manual) (1.3-7.7) k/uL Lymphocytes # (Manual) (1.0-4.8) k/uL Monocytes # (Manual) (0-1.0) k/uL Metamyelocytes # (Man) (0) k/uL ABG pH 7.17 L* (7.35-7.45) ABG pCO2 59 H (35-45) mmHg ABG pO2 (83-108) mmHg ABG HCO3 (21-25) mmol/L ABG O2 Saturation (94-97) % Sodium (137-145) mmol/L Carbon Dioxide (22-30) mmol/L BUN (7-17) mg/dL Creatinine (0.52-1.04) mg/dL Glucose (74-99) mg/dL POC Glucose (mg/dL) (75-99) mg/dL Procalcitonin (0.02-0.09) ng/mL
--- NOTE | 2020-10-16 15:36 | PN ---
PROGRESS NOTE The patient is seen for followup for acute kidney injury. The patient remains on the vent. She has been having daily dialysis mostly for volume overload. The patient however, was not dialyzed yesterday. We have been able to get 4-4.3 L every treatment. EXAMINATION: On examination today, patient is sedated. She is on the vent FiO2 at 70%. Blood pressure 124/65, heart rate 120 per minute. Patient is afebrile. Examination shows edema, upper and lower extremities. Abdomen is soft, nontender. The patient is currently sedated. LAB: Show hemoglobin 7.5, sodium 135, potassium 4.2, BUN 25, creatinine 1.36. ASSESSMENT: 1. Kidney injury, oliguric renal failure, currently dialysis dependent with no urine output, being dialyzed almost on a daily basis with goal UF 4-4.3 L. The patient tends to tolerate it fairly well. We will plan for a treatment again today. 2. Volume overload slowly improving. 3. Acute hypoxic respiratory failure secondary to ARDS/pneumonia. 4. COVID pneumonia. 5. Hypervolemic hyponatremia. 6. Anemia of chronic disease maintained on Aranesp. PLAN: Repeat hemodialysis today. MMODL / IJN: [id number] /
[2020-10-16 17:03] LABS: Glucose,Whole Blood 179 mg/dL (75-99)
[2020-10-17 00:11] LABS: Glucose,Whole Blood 158 mg/dL (75-99)
[2020-10-17] MEDS: INSULIN ASPART (NovoLOG) 100 UNIT/ML VIAL SQ SCH ×4 (00:12→17:27)
[2020-10-17] MEDS: fentaNYL (PF) 2,500 MCG in SODIUM CHLORIDE 0.9% 200 ML IV SCH ×3 (03:22→15:32)
[2020-10-17 05:13] LABS: Glucose,Whole Blood 161 mg/dL (75-99)
[2020-10-17 05:18] LABS: ABG Base Excess -6.3 mmol/L; ABG HCO3 22 mmol/L (21-25); ABG Oxygen Saturation 95.9 % (94-97); ABG PCO2 55 mmHg (35-45); ABG PO2 95 mmHg (83-108); ABG TCO2 23 mmol/L (19-24); Allen Test Performed? Yes
[2020-10-17 05:36] LABS: Anisocytosis Slight; HCT 22.9 % (34.0-46.0); HGB 7.3 gm/dL (11.4-16.0); Hypochromasia Marked; MCH 28.3 pg (25.0-35.0); MCHC 31.7 g/dL (31.0-37.0); MCV 89.1 fL (80.0-100.0); Mean Platelet Volume 8.9; Platelet Count 310 k/uL (150-450); Poikilocytosis Moderate; RBC 2.58 m/uL (3.80-5.40); RDW 17.1 % (11.5-15.5)
[2020-10-17 05:57] LABS: Calcium 10.3 mg/dL (8.4-10.2); Potassium 4.1 mmol/L (3.5-5.1)
[2020-10-17] MEDS: SEVELAMER 800 MG TAB PO SCH ×3 (06:39→17:15)
[2020-10-17] MEDS: ALBUTEROL HFA INHALER INHALATION SCH ×4 (07:21→21:39)
--- NOTE | 2020-10-17 08:28 | XR ---
EXAMINATION TYPE: XR chest 1V portable DATE OF EXAM: 10/17/2020 COMPARISON: Chest x-ray 10/16/2020 HISTORY: Post Covid pneumonia TECHNIQUE: Single frontal view of the chest is obtained. FINDINGS: Right central venous catheter is stable. Tracheostomy tube is in place. There is a right-s ided PICC line with the distal tip over the superior vena cava. No evident pneumothorax. Difficult to exclude effusions. The heart is enlarged. Bilateral airspace disease is again seen. Patient is rotat ed. IMPRESSION: Correlate for volume overload, congestive heart failure, pneumonia, ARDS.
[2020-10-17] MEDS ORDERED: HEPARIN SODIUM 1,000 UN/ML (10ML VL) ONE (09:00)
--- NOTE | 2020-10-17 10:05 | P.PN ---
Subjective Progress Note Date: 10/17/20 10/17/2020, I'm seeing the patient for a follow-up in the intensive care unit for respiratory failure post COVID-19 related ARDS. This morning the patient's seems to be more interactive. She opens her eyes spontaneously. Note that I think it off the paralytic agent yesterday. She was also given a sedation holiday where she was given time off sedation throughout the day yesterday and overnight she had to be restarted back on a low-dose propofol which is currently running at 30 mcg/kg per minute and fentanyl is running at 3 mcg/kg/h. Nevertheless, with this degree of sedation, she is able to open up her eyes and look around. She is not following any commands. As stated earlier, the patient has significant amount of volume overload and she is undergoing daily hemodialysis. In terms of her breathing, I was able to wean down the PEEP down to 15 and FiO2 was down to 60% and this is based on yesterday's blood gases. Her morning ventilator settings include an assist-control mode at the rate of 36 with a tidal volume of 300 and FiO2 of 60% with a PEEP of 15. Blood gases showed a pH of 7.2 with a pCO2 of 55 and a pO2 of 95. Based on that, I made some further adjustments. Current peak airway pressures around 39. Benicar pressure cannot be accurately measured as the patient is not paralyzed at this point in time. Chest x-ray remains unchanged. She is having some loose colored respiratory secretions around her Bivona tracheostomy tube. This needs to be cultured. Note that her cultures of been negative throughout this current hospitalization and the patient is not taking any antibiotics for now. She remains on Decadron 4 mg on a daily basis. She remains on Lovenox 40 mg subcu for DVT prophylaxis. She is receiving enteral feeding for nutritional support in the form of vital high protein at the rate of 10 mL an hour. She is producing adequate amount stooling. We also noted the triglyceride level was above 1000. We are going to stop the propofol replace it with Precedex. Jhony for now. She is hemodynamically stable. She is on no pressors. She does not p roduce urine output. She has a right subclavian permacath Objective - Vital Signs Vital signs: Vital Signs Temp 98.1 F 10/17/20 08:00 Pulse 107 H 10/17/20 09:00 Resp 26 H 10/17/20 09:00 BP 129/71 10/17/20 09:00 Pulse Ox 95 10/17/20 09:00 Intake & Output 10/16/20 10/17/20 10/17/20 18:59 06:59 18:59 Intake Total 1387.025 792.08 119 Output Total 4000 Balance -2612.975 792.08 119 Weight 118.3 kg 114.2 kg Intake: IV 143 266 69 0.9 Normal Saline 33 36 9 Pressure Bag Sodium Chloride 0.9% 500 110 230 60 ml 500 ml @ 10 mls/hr IV .Q24H [facility] Rx#:[id number] Intake, IV Titration 1244.025 326.08 Amount Norepinephrine 8 mg In 245.302 Sodium Chloride 0.9% 250 ml @ 0.05 MCG/KG/MIN 11. 204 mls/hr IV .Q23H2M [facility] Rx#:[id number] Rocuronium 400 mg In 118.592 Sodium Chloride 0.9% 100 ml @ 5 MCG/KG/MIN 12.201 mls/hr IV .[id number] [facility] Rx #:[id number] fentaNYL (PF) 2,500 mcg 491.811 250 In Sodium Chloride 0.9% 200 ml @ Per Protocol IV .Q0M [facility] Rx#:[id number] propofoL 1,000 mg In 388.32 76.08 Empty Bag 1 bag @ Per Protocol IV .Q0M [facility] Rx#: [id number] Tube Feeding 110 20 Other 90 30 Output: Hemodialysis 4000 Other: Voiding Method Incontinent Incontinent Incontinent # Voids 0 0 ABP, PAP, CO, CI - Last Documented Arterial Blood Pressure 50/45 - Exam GENERAL EXAM: Sedated, 35-year-old female patient, on assist control mode of ventilation , sedated, paralyzed HEAD: Normocephalic/atraumatic. EYES: Normal reaction of pupils, equal size. Conjunctiva pink, sclera white. NOSE: Clear with pink turbinates. THROAT: No erythema or exudates. NECK: Right internal jugular hemodialysis catheter placed. Tracheostomy tube secured in place. The patient has Bivona #8. No masses, no JVD, no thyroid enlargement, no adenopathy. CHEST: No chest wall deformity. Symmetrical expansion. LUNGS: Equal air entry with bilateral crackles CVS: Regular rate and rhythm, normal S1 and S2, no gallops, no murmurs, no rubs ABDOMEN: PEG tube exit site clean and dry. No hepatosplenomegaly, normal bowel sounds, no guarding or rigidity. EXTREMITIES: No clubbing, no edema, no cyanosis, 2+ pulses and upper and lower extremities. MUSCULOSKELETAL: Muscle strength and tone normal. SPINE: No scoliosis or deformity SKIN: No rashes CENTRAL NERVOUS SYSTEM: Patient is sedated with propofol , fentanyl and the patient is also paralyzed - Labs CBC & Chem 7: 10/17/20 05:00 10/17/20 05:00 Labs: Abnormal Lab Results - Last 24 Hours (Table) 10/16/20 10/16/20 10/16/20 Range/Units 11:33 12:09 13:00 WBC (3.8-10.6) k/uL RBC (3.80-5.40) m/uL Hgb (11.4-16.0) gm/dL Hct (34.0-46.0) % RDW (11.5-15.5) % ABG pH 7.17 L* (7.35-7.45) ABG pCO2 59 H (35-45) mmHg Sodium (137-145) mmol/L Carbon Dioxide (22-30) mmol/L BUN (7-17) mg/dL Creatinine (0.52-1.04) mg/dL Glucose (74-99) mg/dL POC Glucose (mg/dL) 189 H (75-99) mg/dL Calcium (8.4-10.2) mg/dL Triglycerides >1100.0 H (0.0-149.0) mg/dL 10/16/20 10/17/20 10/17/20 Range/Units 17:02 00:10 05:00 WBC 24.0 H (3.8-10.6) k/uL RBC 2.58 L (3.80-5.40) m/uL Hgb 7.3 L (11.4-16.0) gm/dL Hct 22.9 L (34.0-46.0) % RDW 17.1 H (11.5-15.5) % ABG pH (7.35-7.45) ABG pCO2 (35-45) mmHg Sodium (137-145) mmol/L Carbon Dioxide (22-30) mmol/L BUN (7-17) mg/dL Creatinine (0.52-1.04) mg/dL Glucose (74-99) mg/dL POC Glucose (mg/dL) 179 H 158 H (75-99) mg/dL Calcium (8.4-10.2) mg/dL Triglycerides (0.0-149.0) mg/dL 10/17/20 10/17/20 10/17/20 Range/Units 05:00 05:01 05:14 WBC (3.8-10.6) k/uL RBC (3.80-5.40) m/uL Hgb (11.4-16.0) gm/dL Hct (34.0-46.0) % RDW (11.5-15.5) % ABG pH 7.20 L (7.35-7.45) ABG pCO2 55 H (35-45) mmHg Sodium 136 L (137-145) mmol/L Carbon Dioxide 19 L (22-30) mmol/L BUN 24 H (7-17) mg/dL Creatinine 1.43 H (0.52-1.04) mg/dL Glucose 139 H (74-99) mg/dL POC Glucose (mg/dL) 161 H (75-99) mg/dL Calcium 10.3 H (8.4-10.2) mg/dL Triglycerides (0.0-149.0) mg/dL Assessment and Plan Plan: 1 Acute hypoxic respiratory failure secondary to COVID-19 pneumonia/ARDS, transferred to the intensive care unit on 09/11/2020 and intubated and placed on mechanical ventilator on 09/11/2020. Patient received 1 dose of Remdesivir on 09/11/2020, however based on her quick progression of her hypoxic respiratory failure she received Tocilizumab 800 mg on 09/11/2020. Tracheostomy and PEG tube placed on 09/18/2020. Patient remains in ARDS with diffuse t infiltrates. We are still allowing permissive hypercapnia, low tidal volume ventilation. The some improvement in the patient's oxygenation since yesterday. Her pressures are lower. Blood gases shows some interval improvement in [place]. 2 Acute kidney injury related to ATN, nephrology has been consulted, ultrasound of the kidneys showed no evidence of hydronephrosis. Patient was initiated on hemodialysis on 09/14/2020. Permacath placed 09/20/2020. Patient is undergoing daily dialysis. 3 diabetes mellitus, insulin-dependent and the patient is currently on insulin sliding scale coverage with NovoLog 4 obesity with a BMI of 52.7 5 lovenox prophylaxis dose of 30 mg subcu every 24 hours 6 hypotension, recovered and the patient is currently on no pressors 7 Corneal injury, punctate keratitis, left eye 8 Anemia of chronic disease, post 1 unit rbc on 10/04/2020 9 Generalized anxiety disorder. 10 hypertriglyceridemia Plan Dropped the PEEP to 14 and increase the tidal volume to 300 FiO2 down to 50% Discontinue the propofol and replace it with Precedex. If needed, the fentanyl dose can be increased. We'll avoid paralytics at any cost. HD today of ultrafiltration is on 4 L Check blood gases at noontime Continue Decadron 4 mg IV every 24 hours Lovenox 30 mg subcu every 24 hours Continue enteral feeding for nutritional support,vital HP Condition is critical. This is a critically care evaluation that was on a more than 30 minutes.
[2020-10-17] MEDS: CHOLECALCIFEROL 25 MCG (1000 IU) TABLET PO SCH (10:16)
[2020-10-17] MEDS: PANTOPRAZOLE 40 MG/10 ML VIAL IVP SCH (10:16)
[2020-10-17] MEDS: ASCORBIC ACID 500 MG TAB PO SCH ×2 (10:16→21:40)
[2020-10-17] MEDS: DEXAMETHASONE SOD PHOSPHATE 4 MG/ML 1 ML VIAL IV SCH (10:16)
[2020-10-17] MEDS: SODIUM BICARBONATE TAB 650 MG TAB PO SCH ×3 (10:17→21:39)
[2020-10-17] MEDS: DEXMEDETOMIDINE/0.9% NACL(PMX) 400 MCG in EMPTY BAG 1 BAG IV SCH ×4 (10:32→23:44)
[2020-10-17] MEDS ORDERED: QUEtiapine 100 MG TAB PO STA (11:17)
[2020-10-17] MEDS: NOREPINEPHRINE 8 MG in SODIUM CHLORIDE 0.9% 250 ML IV SCH ×2 (11:21→14:50)
[2020-10-17] MEDS: SODIUM CHLORIDE 0.9% 500 ML 500 ML IV SCH (11:35)
--- NOTE | 2020-10-17 11:41 | P.PN ---
Subjective Progress Note Date: 10/17/20 HISTORY OF PRESENT ILLNESS 35-year-old female patient of Dr. Arroyo with past medical history of type 2 diabetes comes in with acute shortness of breath associated with high light s ugars. Patient on admission was found to have a fever of 101.5 pulse rate 125 respiratory rate 20. Blood pressure 132/106. On chest x-ray obtained in the ER suggestive of bilateral infiltrates concerning for call with pneumonia. COVID PCR was positive. On admissions patient had an ABG with a pH of 7.14 pCO2 of 20, pO2 of 59, bicarb of 7. Patient's blood sugar on admission was 424 on assessment today patient's blood work patient had a sodium 135 potassium 5.4 chloride 123 bicarb less than 5 and creatinine 0.73. D-dimer was elevated on admission patient 9 28 patient given 1 L of IV fluids followed by normal saline running at 200 mL/h. Patient was positive for acetone on admission. She will anion gap closed and was switched to D5NS. Insulin drip was continued during the night and was switched to patient's home medication this morning. One dose of remdesiver was ordered. Apparently around noon, A- team was called on the patient secondary to hypoxia patient's oxygen saturation dropped to the 70s and 80s on 100% nonrebreather. Patient was switched to BiPAP on 18/12 and is doing better o FiO2 of 80%. ABG was obtained and ph was 7. 14 pCO2 of 28 bicarb of 7 pO2 of 17. Patient noted to have uncompensated metabolic acidosis with compensated respiratory alkalosis. Stat dose of 1 amp bicarb was given and followed by sodium bicarbonate drip. Insulin drip restarted. Patient's initiated on dexamethasone 6 mg IV twice a day. Potassium phosphate ordered as phosphorus is low. Patient's repeat blood gases suggest a pH of 7.25, CO2 32 pO2 of 72 bicarb 14. I will not normal saline at 100 mL/h as patient's anion gap has increased. Patient given 1 dose of 2 mg of morphine with improvement in respiratory rate. One dose of Ativan 0.5 mg was given. Xanax 0.25 twice a day along with Ativan 0.5 IV every 6 hours ordered for the patient. Vitals were evaluated patient pulse 129 [id number]. She was moved to the ICU. Precedex drip was initiated. Lopressor was initiated at 25 twice a day. Metoprolol tartrate 5 mg IV every 6 hours. Systolic blood pressure more than 160. Started chest x-ray was obtained and suggest stable bilateral consolidation suggestive of COVID-19 pneumonia. 09/12 patient is seen in the ICU is currently mechanically ventilated and sedated on vent settings of respiratory rate 36, tidal volume 375 FiO2 80% PEEP of 18.. Vital signs reviewed patient had a temp of 100.4 pulse 150 respiratory rate 36 oxygen saturation 95% on 80% on fio2 .'s labs are reviewed which patient had a d-dimer 1.84 that is increased to 14.3. Arterial Blood gas suggest ph 7.35, CO2 40, po2 62, . Her BMP suggest a sodium 135 potassium 3.7 chloride 112 bicarb 21 creatinine 1.57 for calcitonin is 3.5 CRP is increased from 8.78.2 LDH is increased to 2614. Patient remains on Pneumovax, propofol drip. Lovenox increased to 50 subcu twice a day. Patient received 2 L of IV fluids. Continue IV fluids at 100 mL/h. Bicarb drip discontinued patient initiated on Zosyn 3.375 every 8 hours. Continue insulin drip at 4 units per hour. Patient is currently in prone positioning 09/13: Patient evaluated in the ICU remains on Ventilation continues to be sedated, in prone position. Vent settings are respiratory rate 36, tidal vital 375, FiO2 70% PEEP of 18. ABG shows pO2 of 82, PCO2 of 39, pH is 7.19. Latest labs show WBC 11.1, hemoglobin 13.2, d-dimer still pending, but yesterday was up to 14.3. Creatinine up to 3.4, BUN 24 sodium 137, potassium 4.0. Patient's urine output has been low, nephrology on consult. Bicarb drip increased to 100 miles an hour, receiving another liter of normal saline, she did have a ultrasound that showed unremarkable bilateral kidneys. Repeat chest x-ray showed bilateral lung infiltrates that are stable. Anion gap has closed, will start Lantus 10 units at at bedtime Novolog every 6 hours. 09/14: Patient is seen in the ICU, still currently mechanically ventilated and sedated. She continues in the prone position. Her oxygen quickly drops if she is not in prone. Patient's kidney function has worsened. Laboratory values show creatinine of 4.87, BUN 33, LDH 2191, C-reactive protein 2.7. ABG shows pH 7.32, pO2 of 60, pCO2 43. Patient is making almost no urine overnight. Nephrology is following patient continues on cefepime for urinary tract infection, culture is still pending. Vascular has been consulted for placement of temporary hemodialysis catheter for plans for dialysis. 09/15: Patient evaluated in the ICU, continues to be mechanically ventilated and sedated on assist control ventilation rate of 36, tidal volume 375, FiO2 100% and PEEP of 18. ABG today shows pO2 58, pCO2 of 45, and pH 7.35. She continues on tube feedings. Yesterday patient underwent ultrasound-guided right internal jugular non-tunneled hemodialysis catheter placement. Patient underwent hemodialysis treatment last night and plans have another hemodialysis treatment today. She continues to make almost no urine. She continues on cefepime for antibiotic coverage, and continues on Decadron and Lovenox. 09/16: Patient seen on follow-up remains in the ICU mechanically ventilated and sedated. She continues on assist control rate of 36, tidal volume 375, FiO2 100% and PEEP of 20. PEEP had to be increased due to patient had to be in supine position for dialysis, will go back to prone position once dialysis is complete. ABG shows pH 7.32, pCO2 49, PaO2 61. Laboratory values showed WBC 11.2, hemoglobin 11, sodium 134, creatinine 4.44, BUN 38. Urine culture shows no growth, blood cultures show no growth to date. Repeat chest x-ray shows bilateral pleural effusions, correlate for ARDS, pulmonary edema, diffuse pneumonia, findings are stable from last exam. Patient does not require any pressors, blood pressure 133/57, heart rate 78. 5/16: Patient was evaluated in the ICU today for follow-up. She continues to be intubated and on mechanical ventilation. Current vent settings are tidal volume 375, FiO2 100% and PEEP of 20. ABG shows pH 7.37, pCO2 40, pO2 102. She continues with intermittent prone positioning. Patient continues to have almost no urine output, maintained on dialysis. Patient received dialysis yesterday without complication. Laboratory values revealed WBC 10.3, hemoglobin 10.4, sodium 132, potassium 3.1, BUN 33, creatinine 4.29, LDH 1913, C-reactive protein 1.3. Urine and sputum cultures are negative, blood cultures show no growth to date. Consult placed to dietary to start TPN[ ] 09/18: She remains in the intensive care unit intubated and on mechanical ventilation with tidal volume 375, FiO2 60 and PEEP of 20. Patient is being prone to daily at approximately 16 hours per day. Pulmonary medicine has added in Dr. Zhang to do PEG tube and trach today. Patient is not on vasopressors. Repeat blood work reveals WBC 12.6, hemoglobin 9.8, platelet count 212. Sodium 133, potassium 3.2, chloride 102, CO2 21, BUN 35 and creatinine 4.12. Blood sugar 126. Patient underwent hemodialysis yesterday with removal of 2 L and is scheduled again today with goal of 2-3 L and is scheduled again tomorrow. 09/19: She is scheduled for hemodialysis today and is off fentanyl temporarily. Patient is status post trach and PEG tube yesterday. And she remains on mechanical ventilation. Pulse ox 93-95%. She has been afebrile, heart rate 64, respiratory rate 36, blood pressure 115/50. Fentanyl is off to improve blood pressure for hemodialysis which is scheduled for today. Contacted vascular surgery about permanent hemodialysis catheter. Repeat blood work reveals WBC 14.3, hemoglobin 9.6, platelet count 200. D-dimer 6.48. LDH 1686. C-reactive protein 1.1. BUN 34 creatinine 3.81. Sodium 130, potassium 3.5, chloride 101, CO2 18. Blood sugars running between 101 198. Plan is to wean off Pneumovax today. Patient remains on insulin drip. Repeat chest x-ray reveals bilateral multifocal confluent opacities consistent with COVID-19. Some improved aeratio n periphery of the left lung and worsening opacities throughout the right lung. 09/20: She remains in the intensive care unit on mechanical ventilation. She has been afebrile, heart rate 65, respiratory rate 37, blood pressure 121/70, pulse ox 91-99%. Repeat blood work reveals WBC 14.5, hemoglobin 9.1, platelet count 216. D-dimer 6.13. Sodium 133, potassium 3.1, chloride 102, CO2 18, BUN 35 and creatinine 4.27. Blood sugars running between 128 and 143. LDH 1717. C- reactive protein 1.7. Patient remains on insulin drip which will be transitioned to NovoLog scale every 6 hours. Patient is scheduled for permanent hemodialysis catheter placement today with vascular surgery. Repeat chest x-ray reveals stable diffuse bilateral interstitial and airspace disease. Possible small right effusion. His work is following for transfer to senior living care facility. Do not anticipate discharge until next week. 09/21: Patient is undergoing hemodialysis. She remains on mechanical ventilation with tidal volume 375, FiO2 down to 45 and PEEP was decreased to 15. Patient is continued on propofol, fentanyl drips. She is on tube feedings at goal. Patient was taken off insulin drip yesterday and on scale only but blood sugars are running in the 200s, Levemir scheduled at bedtime will be added. Other blood work reveals WBC 13.3, hemoglobin 8.7, platelet count 192. Sodium 137, potassium 3.6, chloride 107, CO2 18, BUN 34 and creatinine 4.21. Repeat chest x-ray is stable. 09/22: She remains in the intensive care on mechanical ventilation with tidal volume 375, FiO2 of 50 and PEEP of 10. Pulse ox is running 96%. She is afebrile, heart rate in the 50s, respiratory rate 36, blood pressure 100/64. Repeat blood work reveals WBC 16.5, hemoglobin 8.9, platelet count 213. Sodium 134, potassium 3.7, chloride 103, CO2 21, BUN 34 and creatinine 3.89. Blood sugars running in the 200s to 324. Levemir increased to 16 units at bedtime and continue NovoLog scale every 6 hours. Patient is on tube feedings at goal. She has a Haley catheter in with a scant amount of dark/brown urine. Fecal management system is in place. Repeat chest x-ray reveals diffuse bilateral airspace infiltrates persist unchanged. Patient is scheduled for hemodialysis tomorrow morning on Friday. 09/23: Patient remains on mechanical ventilation with tidal volume 3.75, FiO2 50 and PEEP of 10. monitor and storage bin tender sinus rhythm. She has no urine output. Fecal management system is in place. She is undergoing dialysis at this time with plan for removal of 2-1/2 L. She has been afebrile, heart rate in the 50s, respiratory rate 36, blood pressure 108/76 and pulse ox 89%. WBC 13.6, hemoglobin 9.1, platelet count 194. Sodium 136, potassium 3.0 and was replaced, chloride 106, CO2 21, BUN 49 creatinine 5.31. Blood sugars are running between 182 and this morning 194. Patient was still in the 200s and 300s. Levemir last evening was increased to 16 units. Patient remains on propofol and fentanyl drips. Lovenox was increased to 60 mg twice daily. 09/24: PEEP was increased today to 20, tidal volume is at 375 and FiO2 of 50%. Patient has been afebrile. She has been started on levo fed. Repeat chest x- ray reveals bilateral multifocal confluent opacities consistent with Covid 19 or ARDS redemonstrated. Nephrology will plan dialysis for tomorrow for 3 L. Patient remains on propofol fentanyl and Nimbex. WBC 12.5, hemoglobin 9.8, platelet count 161. D-dimer 13.3. Sodium 132, potassium 3.4, chloride 102, CO2 20, BUN 48 and creatinine 4.67. Blood sugars extremely elevated to 96-409. LDH 2217. 09/25: Patient remains in the intensive care unit on mechanical ventilation with tidal volume 375, FiO2 50 and PEEP of 20. Patient is afebrile, heart rate 61, respiratory rate 36, blood pressure 102/56, pulse ox 97%. Repeat blood work reveals WBC 9.3, hemoglobin 8.5 and platelet count 171. Sodium 130, potassium 3.7, chloride 100, CO2 20, BUN 61 creatinine 5.65. Blood sugars have been elev ated up to 455. Levemir increased to 20 units twice daily, NovoLog 5 units every 6 hours and continue NovoLog scale. Patient is scheduled for hemodialysis today. Repeat chest x-ray reveals bilateral multifocal and confluent opacities. Decadron and Lovenox dosing change by pulmonary. Patient is off norepinephrine. 09/26: Patient remains in the intensive care unit on mechanical ventilation with tidal volume 375, FiO2 50 and PEEP of 15. She has been afebrile, heart rate 91, blood pressure 114/68, pulse ox 99%. monitor and storage bin tender sinus rhythm. 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 Sodium 134, potassium 3.6, chloride 102, CO2 22, BUN 41 creatinine 4.21. Patient has improved blood sugars this morning running 150s and 160s. Diabetic medications were adjusted yesterday. Patient is awake and alert and interacting. Yesterday, patient had PICC line inserted by interventional radiology. Repeat chest x-ray reveals diffuse airspace infiltrates in both lung ann appear to progress slightly in the interval. 09/27: Patient remains in intensive care unit on mechanical ventilation with improvement of settings with tidal volume 375, FiO2 decreased to 40 and PEEP decreased to 10. Patient is on hemodialysis every other day and plan to remove 3 L today. Patient is more awake and alert. She is slow to respond but is able to follow simple commands. Blood sugars are running between 84 and 123. Repeat blood work reveals WBC 7.1, hemoglobin 8.1, platelets 152. Sodium 135, potassium 3.6, chloride 103, CO2 21, BUN 53 and creatinine 5.88. Repeat chest x-ray revealed cardiomegaly and pulmonary edema. Patient is on tube feedings:. Patient is not require vasopressors and is off sedation. Fecal management system remains in place for brown liquid stool. C. difficile was negative. 09/28: Patient remains on mechanical ventilation with tidal volume 375, FiO2 increased to 80 and PEEP increased to 18. Patient had a rough night was very anxious, no pain. Xanax 0.25 mg 3 times daily was added. There is concern for pulmonary embolism for which patient was started on heparin drip, she is unable to undergo CAT scan. Venous Doppler bilateral lower extremities was nondiagnostic due to extensive edema in obese patient but minimal imaging of the popliteal veins does show flow. Repeat echocardiogram has been ordered. Cefepime has also been ordered at 1 g IV piggyback every 24 hours as well as vancomycin, pharmacy dosing. Patient is back on fentanyl drip, propofol drip and norepinephrine. Blood sugars are elevated and insulin Levemir will be i ncreased to 25 mg twice daily. Ferrlecit infusion has been ordered by nephrology for 4 days. Patient is undergoing hemodialysis today.temperature max 100.2, heart rate 134, respiratory rate 34, blood pressure 120/65, pulse ox 94%. monitor and storage bin tender is sinus tachycardia. Repeat blood work reveals WBC 16.9, hemoglobin 9.7, platelet count 216. D-dimer 8.81. Sodium 134, potassium 3.8, chloride 99, CO2 25, BUN 43 and creatinine 5.36. Blood sugars in the 200s. AST 40. 09/29 Patient had declined more last 48 hours require more sedation, patient is doing hemodialysis, respiratory failure is quite bit worse this time. Patient was inquired the pain is well back on fentanyl drip. Her vent set up with PEEP is limited but higher. No new finding on culture and her chest x-ray continues shows diffuse infiltrate persistent although there is a moderate interval improvement. 09/30 patient's was seen and evaluated. PEEP was reduced to 11 as patient is maintaining good saturation at the current vent settings. 10/01 patient was seen at bedside. She is currently on assist control rate of 28 white tidal volume 350 FiO2 50% and PEEP of 10 which has been reduced by pulmonary as patient name cleaning her oxygen saturation. Arm blood gas was obtained with a pH of 7.35 pCO2 37 pO2 of 63. She remains hemodynamically stable with no need for pressors. Labs were reviewed patient's BUN is 29 crea tinine 3.93 glucose 122 albumin 2.2 sodium 131 chloride 19 hemoglobin is downtrending with a Hb of 7.3 no leukocytosis 7.1. Patient's urine output is minimal at this time. Her rate has increased to 129 and is currently on positive fluid balance even with dialysis. Last dialysis was done yesterday. Continue enteral feeding currently at goal. Antibiotic has been discontinued and continues to remain on DEXA methicillin 4 mg IV daily. 10/02 patient continues to be on trach support with mechanical ventilation. Patient was evaluated by athletic equipment custodian and was switched to VC control as patient was noted to be double stacking on and off throughout the night. Respiratory rate continue to 28 tidal volume increased to 400 with a PEEP for Dr. Downey. Patient is maintaining oxygen saturation 91% on the current setting. According to the nurse bedside patient saturation drops significantly or she is moved or her sedation is dropped. Patient is currently on propofol drip, fentanyl drip. She did underwent dialysis today and was able to maintain her low pressure without the need of pressors. Labs reviewed today suggest a WBC of 6.7 hemoglobin of 7.0 and d-dimer 3.9 bicarb 17 BUN 38 creatinine 4.8. LDH is 964. Sodium 1:30 likely secondary to volume overload. Urine sodium and urine osmolality ordered. Patient's glucose this morning is 146. Continue to remain on enteral feeding. Urine output is reduced. Fall catheter will be placed today. Continue to remain on dialysis. 10/03: Patient remains on mechanical ventilation and is back on propofol and fentanyl drips. Patient is currently on VC control with tidal volume 400, FiO2 55 and PEEP of 12. Patient still is not making any urine and is dialysis dependent with next treatment planned for tomorrow with removal of 3-3-1/2 L. PEG tube feedings are at goal. Fecal management system remains in place. At the time of evaluation, patient is off levophed. Repeat chest x-ray reveals stable diffuse bilateral airspace disease correlate for ARDS, pulmonary edema or diffuse pneumonia. Temperature max last evening was 101. Temperature currently 99, heart rate 106, respiratory rate 32, blood pressure 101/50, pulse ox 86%. Repeat blood work reveals WBC 6, hemoglobin 7.4, platelet count 160. D-dimer 4.05. Sodium 133, potassium 3.5, chloride 100, CO2 23, BUN 31 creatinine 3.8. Blood sugars are running between 100 and 170. Ferritin 1514. Liver function test normal. LDH 1016, C-reactive protein 13.6. Prognosis remains guarded. 10/04: Patient remains intubated on mechanical ventilation with tidal volume 400, FiO2 65, PEEP of 14. Patient continues to run fevers and repeat blood culture and urine and urine culture ordered for today. Haley catheter has been removed this patient has no significant urine output at about 20 mL per shift. BladderScan is monitored for greater than 300 and the patient is straight cathed. Hemoglobin is 6.8 and she has been ordered 41 unit of packed RBCs today. She is currently on propofol and fentanyl drips. She is scheduled for hemodialysis today. WBC 4.5, hemoglobin 6.8, platelet count 151. D-dimer 3.28. Sodium 132, potassium 4.1, chloride 100, CO2 22, BUN 37 creatinine 4.74. Blood sugars running between 97 and 110. Ferritin 1801. LDH 859. C-reactive protein 14.4. Chest x-ray reveals correlate for pneumonia, edema, ARDS. Prognosis remains guarded. 10/05: Patient remains in intensive care unit currently on mechanical ventilation with tidal volume 400, FiO2 was increased to 100 and PEEP is at 14. She continues to run fevers which have worsened with temperature max 103.1. She has been tachycardic in the 130s, blood pressure is marginal but not on vasopressors. Pulse ox currently 92%. Repeat blood work reveals WBC 5.5, hemoglobin 7.6, platelet count 190. D-dimer 2.7, ferritin 1770, LDH 932, C- reactive protein 21.4. Blood sugars are running between 100 1669. Electrolytes are normal. BUN 27 and creatinine 3.79. Pancultures were done yesterday including a straight cath for urine culture, sputum culture and blood culture. Arterial line was removed as well as midline. She is currently on propofol, fen tanyl and started on Nimbex today. 10/06: Patient remains in the intensive care unit. Today patient in prone position and remains on mechanical ventilation with tidal volume 350, FiO2 65 and PEEP of 14. Her last documented fever was yesterday at 2 PM. Heart rate is in the 120s, respiratory rate 32, pulse ox 88-92%. CBC is unremarkable. Electrolytes are normal. BUN 30 creatinine 2.93. Blood sugars are running between 135 and 164. Cultures from October 04: Blood culture no growth, sputum culture finalized, urine culture finalized. Catheter tip culture is in process. Repeat chest x-ray shows bilateral interstitial infiltrates. Patient is on tube feedings of Nepro at goal of 30 ML's per hour. Patient underwent dialysis yesterday and is scheduled for repeat dialysis today. 10/07: Patient maintains in the intensive care unit intubated and on mechanical ventilation. She is receiving hemodialysis this morning has been every day. Plan is to remove 2-1/2 L today. Vent settings have changed today with tidal volume 350, FiO2 was increased to 100% and PEEP remains at 14. She has been continued on Nimbex, fentanyl, norepinephrine and propofol. Plan is to prone position patient following dialysis. Repeat chest x-ray reveals worsening interstitial infiltrates. BUN is 26 and creatinine 2.59. LDH 955, C-reactive protein 22.1. Prognosis remains poor. 10/08: Patient remains in intensive care unit intubated and on mechanical ventilation with tidal volume 350, FiO2 60, PEEP of 14. She is pronating today. She is scheduled for hemodialysis on a daily basis. She has been afebrile, heart rate 112, respiratory rate 36, blood pressure 161/88, pulse ox 93%. Repeat blood work reveals WBC 9.9, hemoglobin 9.1, platelet count 320. Sodium 133, potassium 5.3, chloride 100, CO2 20, BUN 29 creatinine 2.44. Blood sugar running between 102 and 139. LDH 1026, C-reactive protein 19.7. 10/09: Patient is undergoing dialysis this morning. She continues to be intubated and on mechanical ventilation with tidal volume 350, 270 and PEEP of 14. Patient is also on propofol, Nimbex, norepinephrine and fentanyl drips. Repeat chest x-ray reveals persistent bilateral multifocal and confluent opacities consistent with Covid 19. She is afebrile, heart rate 116, respiratory rate 36, blood pressure 120/65, pulse ox 91%. Repeat blood work reveals WBC 5.4, hemoglobin 9.2, platelet count 216. D-dimer 2.67, ferritin 2568, LDH 794, C- reactive protein 13.9. Blood sugars have been running 90-104. Creatinine 1.64. She is on daily dialysis treatment. 10/10: She remains in the intensive care unit. She is now out of isolation as a repeat Covid test came back negative. She remains on mechanical ventilation with tidal volume 350, FiO2 70 and PEEP of 14. Patient is also on Nimbex, propofol, norepinephrine, fentanyl drips. She is on PEG tube feedings at goal and tolerating well. Repeat blood work reveals WBC 7.8, hemoglobin 7.5, platelet count 267. Sodium 139, potassium 3.9, chloride 109, CO2 20, BUN 20 creatinine 1.29. Blood sugars are running between 76 and 102. Scheduled Aiyana Log decreased to 3 units. Repeat chest x-ray reveals moderate cardiomegaly and continued pulmonary edema. Slight interval improvement. Patient is continued on daily hemodialysis. 10/11: Patient remains in intensive care unit on mechanical ventilation with tidal volume 325, FiO2 70, PEEP 14. She is currently being prone. She underwent hemodialysis this morning with removal of 4 L of fluid with plan to continue daily treatment. She is currently on Nimbex, fentanyl and propofol. No vasopressor at this time. Fecal management system remains in place. She is on tube feedings currently at hold due to prone positioning. Patient has been afebrile, heart rate 116, respiratory rate 36, blood pressure 100/58, pulse ox 93-96%. Repeat blood work reveals WBC 9.3, hemoglobin 8.1, platelet count 276. Sodium 136, potassium 4.3, chloride 103, CO2 20, BUN 20 creatinine 1.14. Blood sugars running between 133 and 202. 10/12: Patient remains in the intensive care unit. She is undergoing hemodialy sis this morning. She's been afebrile, heart rate in the 120s, respiratory rate 32, blood pressure 102/65. She is not on vasopressors. She is continued on Nimbex, fentanyl and propofol. Vent settings are currently tidal volume 325, FiO2 70, PEEP 14. Total platelet count 273. Sodium 133, potassium 4.7, chloride 100, CO2 19, BUN 21 creatinine 0.91. Blood sugars running between 121 and 143. 10/13: Patient remain in the ICU she is on hemodialysis daily, she is still on the vent with a PEEP of 14 and FiO2 of 70. Her oxygenation is marginal pulse rate still high. Patient had scratched cornea was seen in ophthalmology decided to keep doing eyedrops along with eye patch at this point. Prognosis still very bad this point. 10/14: She remains on mechanical ventilation with tidal volume 325, FiO2 70% and PEEP of 14. She did require label fed last evening for about 6 hours. She did not tolerate pronating yesterday. She is undergoing dialysis this morning with plan for removal of 4 L. Blood sugars have been low and IV fluids changed to D10 until blood sugars have recovered. Levemir and scheduled NovoLog discontinued. Patient is on tube feedings at goal there's been no change in th is. 10/15 patient remains on mechanical ventilation in the intensive care unit. FiO2 still at 70%, PEEP of 18. Blood sugars have improved since medications were adjusted. White blood cells 33.9, hemoglobin 8.5, sodium 135, BUN 19, creatinine 0.96. Patient to receive dialysis again today. Patient did run a low-grade fever throughout the night and pro calcitonin level is ordered. Chest x-ray showed continued diffuse bilateral airspace disease. Patient remains on tube feedings at goal. 10/16: Patient remains on mechanical ventilation with tidal volume 300, FiO2 70, PEEP of 15. Fecal management system is out. She is currently on low dose of norepinephrine. She is also on fentanyl drip, propofol drip, rocuronium drip. Heart rate is running in the 130s, sinus rhythm, blood pressure 121/63, pulse ox 95%. Patient is been afebrile. Repeat blood work reveals WBC 18.9, hemoglobin 7.5, platelet count 291. Sodium 135, potassium 4.2, chloride 101, CO2 19, BUN 25 and creatinine 1.36. Blood sugars are running between 143 and 199. Patient is on scale insulin only. Repeat chest x-ray reveals persistent bilateral multifocal and completed opacities consistent with Covid 19. 10/17: Patient remains on mechanical ventilation with tidal volume 300, FiO2 50, PEEP of 14. She is currently receiving hemodialysis. The patient is having yellow-colored drainage from the trach site. This is going to be culture today. Repeat blood work reveals WBC of 24, hemoglobin 7.3 and platelet count 310. Sodium 136, potassium 4.1, chloride 101, CO2 19, BUN 24 creatinine 1.43. Blood sugar 139. Capillary blood glucose running 147 and 189. Repeat chest x-ray is unchanged. Patient had increased respiratory rate 40s and 50s with oxygen saturation of 87 and now was increased and Seroquel added this morning. Prognosis remains guarded. REVIEW OF SYSTEMS Unable to obtain due to mechanical ventilation. PHYSICAL EXAMINATION Gen: This is is a 35-year-old black female, patient is intubated and on mechanical ventilation, appears to be comfortable. HD in place. HEENT: Head is atraumatic, normocephalic. Pupils equal, round. Sclerae is anicte janak. Tracheostomy midline. NECK: Supple. No JVD. No lymphadenopathy. No thyromegaly. LUNGS: Coarse bilateral rhonchi. No intercostal retractions. HEART: Regular rate and rhythm. No murmur. ABDOMEN: Soft. Bowel sounds are present. No masses. No tenderness. Fecal management system in place. EXTREMITIES: Trace bilateral pedal edema. No calf tenderness. NEUROLOGICAL: Patient is sedated. ASSESSMENT AND PLAN 1. Acute hypoxic respiratory failure secondary to Covid 19 pneumonia and possible bacterial pneumonia. Patient was intubated on September 11. She is status post 1 dose of Remdesivir and 1 dose of Tocilizumab. Continue Ventolin inhaler 4 times daily, Symbicort twice daily, Decadron 4 mg IV daily, Lovenox 30 mg subcu daily, supplements. Status post PEG tube and trach. Isolation precautions removed. Prone positioning held due to intolerance. 2. Acute diabetic ketoacidosis secondary to Covid 19 pneumonia, uncontrolled with hyperglycemia. Levemir and scheduled NovoLog discontinued due to hypoglycemia, continue NovoLog scale. 3. Metabolic encephalopathy secondary to Covid 19 and DKA. 4. Sepsis and septic shock secondary to Covid 19 pneumonia with multiorgan failure. Continue as in #1. Trach drainage culture to be obtained. 5. Acute metabolic acidosis secondary to acute DKA, Covid 19 and acute kidney injury. Sodium bicarb 650 mg 3 times daily, Renvela 1600 mg 3 times daily.. 6. Diabetes mellitus type 2 uncontrolled with A1c 13.6. Continue as above. 7. Hypophosphatemia status post replacement. 8. Hyperkalemia secondary to DKA, resolved. 9. Sinus tachycardia secondary to sepsis, volume deficiency. 10. Acute kidney injury secondary to ATN secondary to Covid 19 and DKA. Continue daily hemodialysis. Permanent dialysis catheter placed. 11. Possible acute gram-negative pneumonia versus MRSA pneumonia. Completed course of antibiotics. 12. Hypertension. 13. Morbid obesity with BMI of 53. 14. DVT prophylaxis. Lovenox. 15. GI prophylaxis. Protonix 40 mg IV push daily. CODE STATUS: Full code Prognosis poor. DISCHARGE PLAN Vendor Relationship Manager Acute Care Impression and plan of care have been directed as dictated by the signing physician. Kimberly Boswell nurse practitioner acting as scribe for signing physician. Objective - Vital Signs Vital signs: Vital Signs Temp 98.1 F 10/17/20 08:00 Pulse 75 10/17/20 11:00 Resp 49 H 10/17/20 11:00 BP 129/71 10/17/20 09:00 Pulse Ox 86 L 10/17/20 11:00 Intake & Output 10/16/20 10/17/20 10/17/20 18:59 06:59 18:59 Intake Total 1387.025 792.08 509.655 Output Total 4000 Balance -2612.975 792.08 509.655 Weight 118.3 kg 114.2 kg Intake: IV 143 266 115 0.9 Normal Saline 33 36 15 Pressure Bag Sodium Chloride 0.9% 500 110 230 100 ml 500 ml @ 10 mls/hr IV .Q24H [facility] Rx#:[id number] Intake, IV Titration 1244.025 326.08 264.655 Amount Dexmedetomidine/0.9% NaCl 14.655 (Pmx) 400 mcg In Empty Bag 1 bag @ Titrate IV . Q0M [facility] Rx#:[id number] Norepinephrine 8 mg In 245.302 Sodium Chloride 0.9% 250 ml @ 0.05 MCG/KG/MIN 11. 204 mls/hr IV .Q23H2M [facility] Rx#:[id number] Rocuronium 400 mg In 118.592 Sodium Chloride 0.9% 100 ml @ 5 MCG/KG/MIN 12.201 mls/hr IV .[id number] [facility] Rx #:[id number] fentaNYL (PF) 2,500 mcg 491.811 250 250 In Sodium Chloride 0.9% 200 ml @ Per Protocol IV .Q0M [facility] Rx#:[id number] propofoL 1,000 mg In 388.32 76.08 Empty Bag 1 bag @ Per Protocol IV .Q0M [facility] Rx#: [id number] Tube Feeding 110 40 Other 90 90 Output: Hemodialysis 4000 Other: Voiding Method Incontinent Incontinent Incontinent # Voids 0 0 ABP, PAP, CO, CI - Last Documented Arterial Blood Pressure 100/58 - Labs CBC & Chem 7: 10/17/20 05:00 10/17/20 05:00 Labs: Abnormal Lab Results - Last 24 Hours (Table) 10/16/20 10/16/20 10/16/20 Range/Units 11:33 12:09 13:00 WBC (3.8-10.6) k/uL RBC (3.80-5.40) m/uL Hgb (11.4-16.0) gm/dL Hct (34.0-46.0) % RDW (11.5-15.5) % ABG pH 7.17 L* (7.35-7.45) ABG pCO2 59 H (35-45) mmHg Sodium (137-145) mmol/L Carbon Dioxide (22-30) mmol/L BUN (7-17) mg/dL Creatinine (0.52-1.04) mg/dL Glucose (74-99) mg/dL POC Glucose (mg/dL) 189 H (75-99) mg/dL Calcium (8.4-10.2) mg/dL Triglycerides >1100.0 H (0.0-149.0) mg/dL 10/16/20 10/17/20 10/17/20 Range/Units 17:02 00:10 05:00 WBC 24.0 H (3.8-10.6) k/uL RBC 2.58 L (3.80-5.40) m/uL Hgb 7.3 L (11.4-16.0) gm/dL Hct 22.9 L (34.0-46.0) % RDW 17.1 H (11.5-15.5) % ABG pH (7.35-7.45) ABG pCO2 (35-45) mmHg Sodium (137-145) mmol/L Carbon Dioxide (22-30) mmol/L BUN (7-17) mg/dL Creatinine (0.52-1.04) mg/dL Glucose (74-99) mg/dL POC Glucose (mg/dL) 179 H 158 H (75-99) mg/dL Calcium (8.4-10.2) mg/dL Triglycerides (0.0-149.0) mg/dL 10/17/20 10/17/20 10/17/20 Range/Units 05:00 05:01 05:14 WBC (3.8-10.6) k/uL RBC (3.80-5.40) m/uL Hgb (11.4-16.0) gm/dL Hct (34.0-46.0) % RDW (11.5-15.5) % ABG pH 7.20 L (7.35-7.45) ABG pCO2 55 H (35-45) mmHg Sodium 136 L (137-145) mmol/L Carbon Dioxide 19 L (22-30) mmol/L BUN 24 H (7-17) mg/dL Creatinine 1.43 H (0.52-1.04) mg/dL Glucose 139 H (74-99) mg/dL POC Glucose (mg/dL) 161 H (75-99) mg/dL Calcium 10.3 H (8.4-10.2) mg/dL Triglycerides (0.0-149.0) mg/dL
[2020-10-17 11:43] LABS: Glucose,Whole Blood 138 mg/dL (75-99)
[2020-10-17 12:05] LABS: ABG Base Excess -2.3 mmol/L; ABG HCO3 24 mmol/L (21-25); ABG Oxygen Saturation 83.4 % (94-97); ABG PCO2 51 mmHg (35-45); ABG PH 7.29 (7.35-7.45); ABG TCO2 26 mmol/L (19-24)
[2020-10-17 12:06] LABS: ABG PO2 53 mmHg (83-108)
--- NOTE | 2020-10-17 12:43 | P.PN ---
Subjective Progress Note Date: 10/17/20 CHIEF COMPLAINT: COVID-19 pneumonia HISTORY OF PRESENT ILLNESS: Patient is in the ICU for COVID-19 pneumonia and respiratory failure. She is status post tracheostomy and PEG tube placement with Dr. Hollis. Patient is tolerating tube feedings. Her to feedings are at goal at 30 mL per hour. Patient remains on mechanical ventilation. She is getting hemodialysis today. She is requiring some sedation and is able to open her eyes. She did have a bowel movement. She is having some drainage around the tracheostomy site. The drainage was cultured. Afebrile. WBC 24 Patient seen and examined with Dr. hollis PHYSICAL EXAM: VITAL SIGNS: Reviewed. GENERAL: Well-developed in no acute distress. HEENT: No sclera icterus. Extraocular movements grossly intact. Moist buccal mucosa. Head is atraumatic, normocephalic. Tracheostomy site with yellowish drainage ABDOMEN: Soft. Nondistended. Nontender. PEG tube site clean dry and intact NEUROLOGIC: Sedated ASSESSMENT: 1. Acute hypoxic respiratory failure with prolonged mechanical ventilation due to COVID-19 pneumonia status post tracheostomy placement 2. Severe protein calorie malnutrition status post PEG tube placement PLAN: -Continue tube feedings -Continue supportive care -Continue ICU management -Continue trach care Physician [employer] note has been reviewed by physician. Signing provider agrees with the documented findings, assessment, and plan of care. Objective - Vital Signs Vital signs: Vital Signs Temp 98.0 F 10/17/20 11:48 Pulse 74 10/17/20 12:00 Resp 35 H 10/17/20 12:00 BP 126/69 10/17/20 12:00 Pulse Ox 87 L 10/17/20 12:00 Intake & Output 10/16/20 10/17/20 10/17/20 18:59 06:59 18:59 Intake Total 1387.025 792.08 617.332 Output Total 4000 4000 Balance -2612.975 792.08 -3382.668 Weight 118.3 kg 114.2 kg Intake: IV 143 266 138 0.9 Normal Saline 33 36 18 Pressure Bag Sodium Chloride 0.9% 500 110 230 120 ml 500 ml @ 10 mls/hr IV .Q24H [facility] Rx#:[id number] Intake, IV Titration 1244.025 326.08 309.332 Amount Dexmedetomidine/0.9% NaCl 44.109 (Pmx) 400 mcg In Empty Bag 1 bag @ Titrate IV . Q0M [facility] Rx#:[id number] Norepinephrine 8 mg In 245.302 Sodium Chloride 0.9% 250 ml @ 0.05 MCG/KG/MIN 11. 204 mls/hr IV .Q23H2M [facility] Rx#:[id number] Rocuronium 400 mg In 118.592 Sodium Chloride 0.9% 100 ml @ 5 MCG/KG/MIN 12.201 mls/hr IV .[id number] [facility] Rx #:[id number] fentaNYL (PF) 2,500 mcg 491.811 250 265.223 In Sodium Chloride 0.9% 200 ml @ Per Protocol IV .Q0M [facility] Rx#:[id number] propofoL 1,000 mg In 388.32 76.08 Empty Bag 1 bag @ Per Protocol IV .Q0M [facility] Rx#: [id number] Tube Feeding 110 50 Other 90 120 Output: Hemodialysis 4000 4000 Other: Voiding Method Incontinent Incontinent Incontinent # Voids 0 0 ABP, PAP, CO, CI - Last Documented Arterial Blood Pressure 45/43 - Labs CBC & Chem 7: 10/17/20 05:00 10/17/20 05:00 Labs: Abnormal Lab Results - Last 24 Hours (Table) 10/16/20 10/16/20 10/17/20 Range/Units 13:00 17:02 00:10 WBC (3.8-10.6) k/uL RBC (3.80-5.40) m/uL Hgb (11.4-16.0) gm/dL Hct (34.0-46.0) % RDW (11.5-15.5) % ABG pH (7.35-7.45) ABG pCO2 (35-45) mmHg ABG pO2 (83-108) mmHg ABG Total CO2 (19-24) mmol/L ABG O2 Saturation (94-97) % Sodium (137-145) mmol/L Carbon Dioxide (22-30) mmol/L BUN (7-17) mg/dL Creatinine (0.52-1.04) mg/dL Glucose (74-99) mg/dL POC Glucose (mg/dL) 179 H 158 H (75-99) mg/dL Calcium (8.4-10.2) mg/dL Triglycerides >1100.0 H (0.0-149.0) mg/dL 10/17/20 10/17/20 10/17/20 Range/Units 05:00 05:00 05:01 WBC 24.0 H (3.8-10.6) k/uL RBC 2.58 L (3.80-5.40) m/uL Hgb 7.3 L (11.4-16.0) gm/dL Hct 22.9 L (34.0-46.0) % RDW 17.1 H (11.5-15.5) % ABG pH (7.35-7.45) ABG pCO2 (35-45) mmHg ABG pO2 (83-108) mmHg ABG Total CO2 (19-24) mmol/L ABG O2 Saturation (94-97) % Sodium 136 L (137-145) mmol/L Carbon Dioxide 19 L (22-30) mmol/L BUN 24 H (7-17) mg/dL Creatinine 1.43 H (0.52-1.04) mg/dL Glucose 139 H (74-99) mg/dL POC Glucose (mg/dL) 161 H (75-99) mg/dL Calcium 10.3 H (8.4-10.2) mg/dL Triglycerides (0.0-149.0) mg/dL 10/17/20 10/17/20 10/17/20 Range/Units 05:14 11:41 12:03 WBC (3.8-10.6) k/uL RBC (3.80-5.40) m/uL Hgb (11.4-16.0) gm/dL Hct (34.0-46.0) % RDW (11.5-15.5) % ABG pH 7.20 L 7.29 L (7.35-7.45) ABG pCO2 55 H 51 H (35-45) mmHg ABG pO2 53 L* (83-108) mmHg ABG Total CO2 26 H (19-24) mmol/L ABG O2 Saturation 83.4 L (94-97) % Sodium (137-145) mmol/L Carbon Dioxide (22-30) mmol/L BUN (7-17) mg/dL Creatinine (0.52-1.04) mg/dL Glucose (74-99) mg/dL POC Glucose (mg/dL) 138 H (75-99) mg/dL Calcium (8.4-10.2) mg/dL Triglycerides (0.0-149.0) mg/dL
--- NOTE | 2020-10-17 13:32 | PN ---
PROGRESS NOTE Patient is seen for followup for acute kidney injury. The patient is hemodialysis dependent. She is being dialyzed on a daily basis with UF of about 4-4.3 L almost every day. This morning she is seen on dialysis tolerating her treatment fairly well. Blood pressure is staying about 120-130 mmHg systolic. On examination today, the patient is sedated. She is on the vent. FiO2 at 60%. Sedation is being decreased. The patient continues to have no significant urine output. EXAMINATION: Edema is noted 2+ bilaterally upper and lower extremities. The patient is not following commands. Abdomen is soft, obese, nontender. LABS: Reviewed. Sodium 136, potassium 4.1, chloride 101, CO2 is 19, BUN 24, creatinine 1.43, calcium 10.3, hemoglobin 7.3 g/dL. ASSESSMENT: 1. Acute kidney injury, acute tubular necrosis, currently oliguric and hemodialysis dependent. We will continue daily treatments mostly for volume overload. 2. Acute hypoxic respiratory failure. Patient remains on the vent, status post trach and PEG. 3. Hyperphosphatemia, maintained on Renvela. 4. Metabolic acidosis, currently on oral sodium bicarb and being dialyzed as well. 5. Mild hypercalcemia noted on labs today. We will recheck tomorrow and we will dialyze her on a low calcium bath. Check PTH levels. 6. COVID pneumonia. 7. Volume overload currently improving. PLAN: Repeat dialysis in a.m. Adjust calcium bath tomorrow based on her calcium level. Check intact PTH level if calcium is elevated again tomorrow. MMODL / IJN: [id number] /
[2020-10-17] MEDS ORDERED: NOREPINEPHRIN 4 MG-0.9% NS PMX 4 MG/250 ML ML IV ONE (14:40)
[2020-10-17] MEDS: ROCURONIUM 400 MG in SODIUM CHLORIDE 0.9% 100 ML IV SCH (15:28)
[2020-10-17 16:00] LABS: ABG HCO3 23 mmol/L (21-25); ABG Oxygen Saturation 95.4 % (94-97); ABG PCO2 52 mmHg (35-45); ABG PH 7.26 (7.35-7.45); ABG PO2 89 mmHg (83-108); ABG TCO2 25 mmol/L (19-24); Allen Test Performed? Yes
[2020-10-17 16:55] LABS: Glucose,Whole Blood 213 mg/dL (75-99)
[2020-10-17 17:26] LABS: Glucose,Whole Blood 179 mg/dL (75-99)
[2020-10-17] MEDS: QUEtiapine 100 MG TAB PO SCH (21:40)
[2020-10-18 00:45] LABS: Glucose,Whole Blood 199 mg/dL (75-99)
[2020-10-18] MEDS: INSULIN ASPART (NovoLOG) 100 UNIT/ML VIAL SQ SCH ×4 (00:51→18:32)
[2020-10-18] MEDS: fentaNYL (PF) 2,500 MCG in SODIUM CHLORIDE 0.9% 200 ML IV SCH ×2 (03:57→14:46)
[2020-10-18 04:14] LABS: ABG Base Excess -5.4 mmol/L; ABG HCO3 22 mmol/L (21-25); ABG Oxygen Saturation 95.9 % (94-97); ABG PCO2 50 mmHg (35-45); ABG PH 7.25 (7.35-7.45); ABG PO2 94 mmHg (83-108); ABG TCO2 23 mmol/L (19-24)
[2020-10-18 04:15] LABS: Allen Test Performed? no
[2020-10-18 05:39] LABS: Glucose,Whole Blood 199 mg/dL (75-99)
[2020-10-18] MEDS: DEXMEDETOMIDINE/0.9% NACL(PMX) 400 MCG in EMPTY BAG 1 BAG IV SCH ×4 (05:40→20:47)
[2020-10-18] MEDS: SEVELAMER 800 MG TAB PO SCH ×3 (06:36→16:56)
--- NOTE | 2020-10-18 06:39 | XR ---
EXAMINATION TYPE: XR chest 1V portable DATE OF EXAM: 10/18/2020 CLINICAL HISTORY: Difficulty breathing progress study. TECHNIQUE: Single AP portable semiupright view of the chest is obtained. COMPARISON: Chest x-ray from one day earlier and older studies. FINDINGS: Stable tracheostomy tube and right internal jugular large bore dialysis catheter. Stable r ight-sided PICC line. Bilateral fairly confluent opacities redemonstrated. Heart size stable and mildly enlarged. Osseous s tructures are intact. IMPRESSION: Persistent bilateral confluent opacities consistent with covid-19 infection and/or ARDS. No significant change from one day earlier.
[2020-10-18 06:58] LABS: Anisocytosis Slight; HCT 23.3 % (34.0-46.0); HGB 7.2 gm/dL (11.4-16.0); Hypochromasia Marked; MCV 90.2 fL (80.0-100.0); Mean Platelet Volume 8.9; Platelet Count 350 k/uL (150-450); Poikilocytosis Moderate; RBC 2.58 m/uL (3.80-5.40); RDW 17.3 % (11.5-15.5)
[2020-10-18 07:15] LABS: Calcium 10.3 mg/dL (8.4-10.2); Potassium 4.2 mmol/L (3.5-5.1)
[2020-10-18] MEDS: ALBUTEROL HFA INHALER INHALATION SCH ×4 (07:42→20:20)
[2020-10-18] MEDS: ENOXAPARIN 30 MG/0.3 ML SYRINGE SQ SCH (08:01)
[2020-10-18] MEDS: ASCORBIC ACID 500 MG TAB PO SCH ×2 (08:01→21:27)
[2020-10-18] MEDS: DEXAMETHASONE SOD PHOSPHATE 4 MG/ML 1 ML VIAL IV SCH (08:02)
[2020-10-18] MEDS: CHOLECALCIFEROL 25 MCG (1000 IU) TABLET PO SCH (08:02)
[2020-10-18] MEDS: SODIUM BICARBONATE TAB 650 MG TAB PO SCH ×3 (08:02→21:27)
[2020-10-18] MEDS: PANTOPRAZOLE 40 MG/10 ML VIAL IVP SCH (08:02)
--- NOTE | 2020-10-18 09:33 | P.PN ---
Subjective Progress Note Date: 10/18/20 10/18/2020 patient is being seen for a follow-up. Remains in intensive care unit on a mechanical ventilator post COVID-19 related ARDS and respiratory failure. For now, we'll managed to get the patient off paralytics. We managed also to switch her to a combination of Precedex and fentanyl. Propofol was discontinued as the patient has developed very high levels of triglycerides. Currently, Precedex is running at 0.6 mics of respiratory event per minute and fentanyl is running at 2 mcg/kg/h. She opens up her eyes. She follows some verbal cues. Nevertheless, she does not follow any commands. She is not moving her arms to demand. She is quite successful mechanical ventilator. This mo rning, she is on a VAC plus mode with a rate of 32 and tidal volume of 300 and FiO2 of 70% with a PEEP of 14. The peak pressure was around 30 she'll. Blood gases from today showed a pH of 7.5 with a pCO2 of 50 and pO2 of 94. Chest x- ray was still showing diffuse bilateral pulmonary infiltrates consistent with post COVID-19 related ARDS. She is having some respiratory secretions around the tracheostomy tube. There is a concern for infection. Her white cell count is up to 30. Based on that, cultures will be sent and the patient will be started on empiric antibiotic coverage with IV cefepime. She is currently undergoing hemodialysis. The plan is to do daily hemodialysis. Last session was done yesterday and the patient ultrafiltration of around 4 L. The same will be done today. She continues to be edematous in all 4 extremities pH is tolerating her enteral feeding for nutritional support. She remains on Decadron at a dose of 4 mg on a daily basis patient is on Lovenox 30 mg subcu for DVT prophylaxis. She is receiving enteral feeding for nutritional support in the form of vital high protein at the rate of 10 mL an hour and this is to be modified nontender the patient is currently off propofol. This will be discussed further with dietary. Otherwise, she is doing better. I am excited to see her opening up her eyes and looking around. Her mental status is not completely recovered yet. Note that the patient was following commands approximately 3 weeks ago prior to her full-blown decompensation. Objective - Vital Signs Vital signs: Vital Signs Temp 99.4 F 06/16/21 08:00 Pulse 120 H 10/18/20 08:00 Resp 32 H 10/18/20 08:00 BP 124/66 10/18/20 08:00 Pulse Ox 95 10/18/20 08:00 Intake & Output 10/17/20 10/18/20 10/18/20 18:59 06:59 18:59 Intake Total 1208.302 905.109 100.506 Output Total 4000 Balance -2791.698 905.109 100.506 Weight 115.1 kg Intake: IV 276 276 13 0.9 Normal Saline 36 36 3 Pressure Bag Sodium Chloride 0.9% 500 240 240 10 ml 500 ml @ 10 mls/hr IV .Q24H [facility] Rx#:[id number] Intake, IV Titration 792.302 419.109 87.506 Amount Dexmedetomidine/0.9% NaCl 196.852 184.012 (Pmx) 400 mcg In Empty Bag 1 bag @ Titrate IV . Q0M [facility] Rx#:[id number] Norepinephrine 8 mg In 7.625 72.922 87.506 Sodium Chloride 0.9% 250 ml @ 0.05 MCG/KG/MIN 11. 049 mls/hr IV .[id number] [facility] Rx#:[id number] fentaNYL (PF) 2,500 mcg 587.825 162.175 In Sodium Chloride 0.9% 200 ml @ Per Protocol IV .Q0M [facility] Rx#:[id number] Tube Feeding 80 120 Other 60 90 Output: Hemodialysis 4000 Other: Voiding Method Incontinent Incontinent # Voids 0 0 # Bowel Movements 1 ABP, PAP, CO, CI - Last Documented Arterial Blood Pressure 102/65 - Exam GENERAL EXAM: Sedated, 35-year-old female patient, on assist control mode of ventilation , sedated HEAD: Normocephalic/atraumatic. EYES: Normal reaction of pupils, equal size. Conjunctiva pink, sclera white. NOSE: Clear with pink turbinates. THROAT: No erythema or exudates. NECK: Right internal jugular hemodialysis catheter placed. Tracheostomy tube secured in place. The patient has Bivona #8. No masses, no JVD, no thyroid en largement, no adenopathy. CHEST: No chest wall deformity. Symmetrical expansion. LUNGS: Equal air entry with bilateral crackles CVS: Regular rate and rhythm, normal S1 and S2, no gallops, no murmurs, no rubs ABDOMEN: PEG tube exit site clean and dry. No hepatosplenomegaly, normal bowel sounds, no guarding or rigidity. EXTREMITIES: No clubbing, no edema, no cyanosis, 2+ pulses and upper and lower extremities. MUSCULOSKELETAL: Muscle strength and tone normal. SPINE: No scoliosis or deformity SKIN: No rashes CENTRAL NERVOUS SYSTEM: Patient is sedated with precedex , fentanyl - Labs CBC & Chem 7: 10/18/20 05:35 10/18/20 05:35 Labs: Abnormal Lab Results - Last 24 Hours (Table) 10/17/20 10/17/20 10/17/20 Range/Units 05:00 11:41 12:03 WBC (3.8-10.6) k/uL RBC (3.80-5.40) m/uL Hgb (11.4-16.0) gm/dL Hct (34.0-46.0) % RDW (11.5-15.5) % ABG pH 7.29 L (7.35-7.45) ABG pCO2 51 H (35-45) mmHg ABG pO2 53 L* (83-108) mmHg ABG Total CO2 26 H (19-24) mmol/L ABG O2 Saturation 83.4 L (94-97) % Carbon Dioxide (22-30) mmol/L BUN (7-17) mg/dL Creatinine (0.52-1.04) mg/dL Glucose (74-99) mg/dL POC Glucose (mg/dL) 138 H (75-99) mg/dL Calcium (8.4-10.2) mg/dL Phosphorus 7.0 H (2.5-4.5) mg/dL 10/17/20 10/17/20 10/17/20 Range/Units 15:57 16:54 17:25 WBC (3.8-10.6) k/uL RBC (3.80-5.40) m/uL Hgb (11.4-16.0) gm/dL Hct (34.0-46.0) % RDW (11.5-15.5) % ABG pH 7.26 L (7.35-7.45) ABG pCO2 52 H (35-45) mmHg ABG pO2 (83-108) mmHg ABG Total CO2 25 H (19-24) mmol/L ABG O2 Saturation (94-97) % Carbon Dioxide (22-30) mmol/L BUN (7-17) mg/dL Creatinine (0.52-1.04) mg/dL Glucose (74-99) mg/dL POC Glucose (mg/dL) 213 H 179 H (75-99) mg/dL Calcium (8.4-10.2) mg/dL Phosphorus (2.5-4.5) mg/dL 10/18/20 10/18/20 10/18/20 Range/Units 00:43 04:08 05:35 WBC 30.6 H (3.8-10.6) k/uL RBC 2.58 L (3.80-5.40) m/uL Hgb 7.2 L (11.4-16.0) gm/dL Hct 23.3 L (34.0-46.0) % RDW 17.3 H (11.5-15.5) % ABG pH 7.25 L (7.35-7.45) ABG pCO2 50 H (35-45) mmHg ABG pO2 (83-108) mmHg ABG Total CO2 (19-24) mmol/L ABG O2 Saturation (94-97) % Carbon Dioxide (22-30) mmol/L BUN (7-17) mg/dL Creatinine (0.52-1.04) mg/dL Glucose (74-99) mg/dL POC Glucose (mg/dL) 199 H (75-99) mg/dL Calcium (8.4-10.2) mg/dL Phosphorus (2.5-4.5) mg/dL 10/18/20 10/18/20 Range/Units 05:35 05:38 WBC (3.8-10.6) k/uL RBC (3.80-5.40) m/uL Hgb (11.4-16.0) gm/dL Hct (34.0-46.0) % RDW (11.5-15.5) % ABG pH (7.35-7.45) ABG pCO2 (35-45) mmHg ABG pO2 (83-108) mmHg ABG Total CO2 (19-24) mmol/L ABG O2 Saturation (94-97) % Carbon Dioxide 20 L (22-30) mmol/L BUN 23 H (7-17) mg/dL Creatinine 1.79 H (0.52-1.04) mg/dL Glucose 169 H (74-99) mg/dL POC Glucose (mg/dL) 199 H (75-99) mg/dL Calcium 10.3 H (8.4-10.2) mg/dL Phosphorus (2.5-4.5) mg/dL Microbiology - Last 24 Hours (Table) 10/17/20 10:55 Gram Stain - Preliminary Trachea Wound Culture - Preliminary 10/17/20 10:55 Anaerobic Culture - Preliminary Trachea Assessment and Plan Plan: 1 Acute hypoxic respiratory failure secondary to COVID-19 pneumonia/ARDS, tra nsferred to the intensive care unit on 09/11/2020 and intubated and placed on mechanical ventilator on 09/11/2020. Patient received 1 dose of Remdesivir on 09/11/2020, however based on her quick progression of her hypoxic respiratory failure she received Tocilizumab 800 mg on 09/11/2020. Tracheostomy and PEG tube placed on 09/18/2020. Patient remains in ARDS with diffuse infiltrates. We are still allowing permissive hypercapnia, low tidal volume ventilation. He is showing improvement in oxygenation. Chest x-ray findings are stable. There is concern of some ongoing infection as the patient has developed some mild leukocytosis and at the same time she is having some purulent material around the tracheostomy stoma. Cultures were sent. Appropriate antibiotics will be given initially and had a chalazion targeted based on the results of the cultures. 2 Acute kidney injury related to ATN, nephrology has been consulted, ultrasound of the kidneys showed no evidence of hydronephrosis. Patient was initiated on hemodialysis on 09/14/2020. Permacath placed 09/20/2020. Patient is u ndergoing daily dialysis. Her last bout of dialysis was yesterday and the patient is having significant amount of fluid taken off on a daily basis and she continues to have significant amount of third spacing and edema in all 4 extremities. 3 diabetes mellitus, insulin-dependent and the patient is currently on insulin sliding scale coverage with NovoLog 4 obesity with a BMI of 52.7 5 lovenox prophylaxis dose of 30 mg subcu every 24 hours 6 hypotension, recovered and the patient is currently on no pressors 7 Corneal injury, punctate keratitis, left eye 8 Anemia of chronic disease, post 1 unit rbc on 10/04/2020 9 Generalized anxiety disorder. 10 hypertriglyceridemia, currently off propofol and will utilizing a combination of Precedex and fentanyl. Plan Into the monitor the mental status. We'll gradually wean off the sedation as long as the patient remains quite synchronous with the mechanical ventilator and she does have no significant oxygen desaturation. Dropped the PEEP to 12 and increase the tidal volume to 300 FiO2 down to 60% Continue Precedex and fentanyl for sedation. Gradually wean off the fentanyl Check sputum Gram stain and culture Monitor white cell count Cover the patient with IV cefepime HD today of ultrafiltration is on 4 L Check blood gases at noontime Continue Decadron 4 mg IV every 24 hours, will drop the dose down to 2 mg as of tomorrow. Lovenox 30 mg subcu every 24 hours Continue enteral feeding for nutritional support,vital HP Condition is critical. This is a critically care evaluation that was on a more than 30 minutes. Time with Patient: Greater than 30
[2020-10-18 09:34] LABS: Band Neutrophils % 2 %; Lymphocytes # (M) 3.03 k/uL (1.0-4.8); Metamyelocytes # (M) 0.91 k/uL (0); Metamyelocytes % 3 %; Monocytes # (M) 3.94 k/uL (0-1.0); Myelocytes # (M) 0.61 k/uL (0); Myelocytes % 2 %; Neutrophils % (M) 72 %; Nucleated Red Blood Cells 1 /100 WBC (0-0); Total Cells Counted 200; WBC 30.3 k/uL (3.8-10.6)
[2020-10-18 09:35] LABS: Polychromasia Present; Toxic Granulation Present; Toxic Vacuolation Present
[2020-10-18 11:06] LABS: Glucose,Whole Blood 156 mg/dL (75-99)
[2020-10-18] MEDS: INSULIN DETEMIR (LEVEMIR) 100 UNIT/ML SYR SQ SCH (11:07)
[2020-10-18] MEDS: SODIUM CHLORIDE 0.9% 500 ML 500 ML IV SCH (11:10)
[2020-10-18] MEDS: DARBEPOETIN ALFA 40 MCG/0.4 ML SYRINGE SQ SCH (11:15)
--- NOTE | 2020-10-18 11:22 | P.PN ---
Subjective Progress Note Date: 10/18/20 CHIEF COMPLAINT: COVID-19 pneumonia HISTORY OF PRESENT ILLNESS: Patient is in the ICU for COVID-19 pneumonia and respiratory failure. She is status post tracheostomy and PEG tube placement with Dr. Hollis. Patient is tolerating tube feedings. Her to feedings are at goal at 30 mL per hour. Patient remains on mechanical ventilation. She is getting hemodialysis currently. They have discontinued the propofol. Patient is currently on fentanyl and Precedex. She is able to open her eyes and follow a few simple commands per nursing staff. She is having bowel movements. She still having minimal drainage from tracheostomy site. Cultures pending. Afebrile. WBC 30.6 Patient seen and examined with Dr. hollis PHYSICAL EXAM: VITAL SIGNS: Reviewed. GENERAL: Well-developed in no acute distress. HEENT: No sclera icterus. Extraocular movements grossly intact. Moist buccal mucosa. Head is atraumatic, normocephalic. Tracheostomy site with yellowish drainage ABDOMEN: Soft. Nondistended. Nontender. PEG tube site clean dry and intact NEUROLOGIC: Sedated ASSESSMENT: 1. Acute hypoxic respiratory failure with prolonged mechanical ventilation due to COVID-19 pneumonia status post tracheostomy placement 2. Severe protein calorie malnutrition status post PEG tube placement PLAN: -Continue tube feedings -Continue supportive care -Continue ICU management -Continue trach care Physician Boiler Or Engine Operator note has been reviewed by physician. Signing provider agrees with the documented findings, assessment, and plan of care. Objective - Vital Signs Vital signs: Vital Signs Temp 99.4 F 10/18/20 08:00 Pulse 101 H 10/18/20 11:00 Resp 30 H 10/18/20 11:00 BP 115/65 10/18/20 11:00 Pulse Ox 99 10/18/20 11:00 Intake & Output 10/17/20 10/18/20 10/18/20 18:59 06:59 18:59 Intake Total 1208.302 905.109 126.506 Output Total 4000 Balance -2791.698 905.109 126.506 Weight 115.1 kg 115.1 kg Intake: IV 276 276 39 0.9 Normal Saline 36 36 9 Pressure Bag Sodium Chloride 0.9% 500 240 240 30 ml 500 ml @ 10 mls/hr IV .Q24H [facility] Rx#:[id number] Intake, IV Titration 792.302 419.109 87.506 Amount Dexmedetomidine/0.9% NaCl 196.852 184.012 (Pmx) 400 mcg In Empty Bag 1 bag @ Titrate IV . Q0M [facility] Rx#:[id number] Norepinephrine 8 mg In 7.625 72.922 87.506 Sodium Chloride 0.9% 250 ml @ 0.05 MCG/KG/MIN 11. 049 mls/hr IV .[id number] [facility] Rx#:[id number] fentaNYL (PF) 2,500 mcg 587.825 162.175 In Sodium Chloride 0.9% 200 ml @ Per Protocol IV .Q0M [facility] Rx#:[id number] Tube Feeding 80 120 Other 60 90 Output: Hemodialysis 4000 Other: Voiding Method Incontinent Incontinent # Voids 0 0 # Bowel Movements 1 ABP, PAP, CO, CI - Last Documented Arterial Blood Pressure 98/53 - Labs CBC & Chem 7: 10/18/20 05:35 10/18/20 05:35 Labs: Abnormal Lab Results - Last 24 Hours (Table) 10/17/20 10/17/20 10/17/20 Range/Units 05:00 11:41 12:03 WBC (3.8-10.6) k/uL RBC (3.80-5.40) m/uL Hgb (11.4-16.0) gm/dL Hct (34.0-46.0) % RDW (11.5-15.5) % Neutrophils # (Manual) (1.3-7.7) k/uL Monocytes # (Manual) (0-1.0) k/uL Metamyelocytes # (Man) (0) k/uL Myelocytes # (Manual) (0) k/uL Nucleated RBCs (0-0) /100 WBC ABG pH 7.29 L (7.35-7.45) ABG pCO2 51 H (35-45) mmHg ABG pO2 53 L* (83-108) mmHg ABG Total CO2 26 H (19-24) mmol/L ABG O2 Saturation 83.4 L (94-97) % Carbon Dioxide (22-30) mmol/L BUN (7-17) mg/dL Creatinine (0.52-1.04) mg/dL Glucose (74-99) mg/dL POC Glucose (mg/dL) 138 H (75-99) mg/dL Calcium (8.4-10.2) mg/dL Phosphorus 7.0 H (2.5-4.5) mg/dL 10/17/20 10/17/20 10/17/20 Range/Units 15:57 16:54 17:25 WBC (3.8-10.6) k/uL RBC (3.80-5.40) m/uL Hgb (11.4-16.0) gm/dL Hct (34.0-46.0) % RDW (11.5-15.5) % Neutrophils # (Manual) (1.3-7.7) k/uL Monocytes # (Manual) (0-1.0) k/uL Metamyelocytes # (Man) (0) k/uL Myelocytes # (Manual) (0) k/uL Nucleated RBCs (0-0) /100 WBC ABG pH 7.26 L (7.35-7.45) ABG pCO2 52 H (35-45) mmHg ABG pO2 (83-108) mmHg ABG Total CO2 25 H (19-24) mmol/L ABG O2 Saturation (94-97) % Carbon Dioxide (22-30) mmol/L BUN (7-17) mg/dL Creatinine (0.52-1.04) mg/dL Glucose (74-99) mg/dL POC Glucose (mg/dL) 213 H 179 H (75-99) mg/dL Calcium (8.4-10.2) mg/dL Phosphorus (2.5-4.5) mg/dL 10/18/20 10/18/20 10/18/20 Range/Units 00:43 04:08 05:35 WBC 30.3 H (3.8-10.6) k/uL RBC 2.58 L (3.80-5.40) m/uL Hgb 7.2 L (11.4-16.0) gm/dL Hct 23.3 L (34.0-46.0) % RDW 17.3 H (11.5-15.5) % Neutrophils # (Manual) 22.40 H (1.3-7.7) k/uL Monocytes # (Manual) 3.94 H (0-1.0) k/uL Metamyelocytes # (Man) 0.91 H (0) k/uL Myelocytes # (Manual) 0.61 H (0) k/uL Nucleated RBCs 1 H (0-0) /100 WBC ABG pH 7.25 L (7.35-7.45) ABG pCO2 50 H (35-45) mmHg ABG pO2 (83-108) mmHg ABG Total CO2 (19-24) mmol/L ABG O2 Saturation (94-97) % Carbon Dioxide (22-30) mmol/L BUN (7-17) mg/dL Creatinine (0.52-1.04) mg/dL Glucose (74-99) mg/dL POC Glucose (mg/dL) 199 H (75-99) mg/dL Calcium (8.4-10.2) mg/dL Phosphorus (2.5-4.5) mg/dL 10/18/20 10/18/20 10/18/20 Range/Units 05:35 05:38 11:03 WBC (3.8-10.6) k/uL RBC (3.80-5.40) m/uL Hgb (11.4-16.0) gm/dL Hct (34.0-46.0) % RDW (11.5-15.5) % Neutrophils # (Manual) (1.3-7.7) k/uL Monocytes # (Manual) (0-1.0) k/uL Metamyelocytes # (Man) (0) k/uL Myelocytes # (Manual) (0) k/uL Nucleated RBCs (0-0) /100 WBC ABG pH (7.35-7.45) ABG pCO2 (35-45) mmHg ABG pO2 (83-108) mmHg ABG Total CO2 (19-24) mmol/L ABG O2 Saturation (94-97) % Carbon Dioxide 20 L (22-30) mmol/L BUN 23 H (7-17) mg/dL Creatinine 1.79 H (0.52-1.04) mg/dL Glucose 169 H (74-99) mg/dL POC Glucose (mg/dL) 199 H 156 H (75-99) mg/dL Calcium 10.3 H (8.4-10.2) mg/dL Phosphorus (2.5-4.5) mg/dL Microbiology - Last 24 Hours (Table) 10/17/20 10:55 Gram Stain - Preliminary Trachea Wound Culture - Preliminary 10/17/20 10:55 Anaerobic Culture - Preliminary Trachea
[2020-10-18 11:53] LABS: Glucose,Whole Blood 164 mg/dL (75-99)
[2020-10-18 12:40] LABS: ABG Base Excess -3.5 mmol/L; ABG HCO3 23 mmol/L (21-25); ABG Oxygen Saturation 97.6 % (94-97); ABG PCO2 51 mmHg (35-45); ABG PH 7.27 (7.35-7.45); ABG PO2 111 mmHg (83-108); ABG TCO2 25 mmol/L (19-24)
[2020-10-18 12:42] LABS: Allen Test Performed? no
--- NOTE | 2020-10-18 12:50 | P.PN ---
Subjective Progress Note Date: 10/18/20 HISTORY OF PRESENT ILLNESS 35-year-old female patient of Dr. Arroyo with past medical history of type 2 diabetes comes in with acute shortness of breath associated with high light s ugars. Patient on admission was found to have a fever of 101.5 pulse rate 125 respiratory rate 20. Blood pressure 132/106. On chest x-ray obtained in the ER suggestive of bilateral infiltrates concerning for call with pneumonia. COVID PCR was positive. On admissions patient had an ABG with a pH of 7.14 pCO2 of 20, pO2 of 59, bicarb of 7. Patient's blood sugar on admission was 424 on assessment today patient's blood work patient had a sodium 135 potassium 5.4 chloride 123 bicarb less than 5 and creatinine 0.73. D-dimer was elevated on admission patient 9 28 patient given 1 L of IV fluids followed by normal saline running at 200 mL/h. Patient was positive for acetone on admission. She will anion gap closed and was switched to D5NS. Insulin drip was continued during the night and was switched to patient's home medication this morning. One dose of remdesiver was ordered. Apparently around noon, A- team was called on the patient secondary to hypoxia patient's oxygen saturation dropped to the 70s and 80s on 100% nonrebreather. Patient was switched to BiPAP on 18/12 and is doing better o FiO2 of 80%. ABG was obtained and ph was 7. 14 pCO2 of 28 bicarb of 7 pO2 of 17. Patient noted to have uncompensated metabolic acidosis with compensated respiratory alkalosis. Stat dose of 1 amp bicarb was given and followed by sodium bicarbonate drip. Insulin drip restarted. Patient's initiated on dexamethasone 6 mg IV twice a day. Potassium phosphate ordered as phosphorus is low. Patient's repeat blood gases suggest a pH of 7.25, CO2 32 pO2 of 72 bicarb 14. I will not normal saline at 100 mL/h as patient's anion gap has increased. Patient given 1 dose of 2 mg of morphine with improvement in respiratory rate. One dose of Ativan 0.5 mg was given. Xanax 0.25 twice a day along with Ativan 0.5 IV every 6 hours ordered for the patient. Vitals were evaluated patient pulse 129 [id number]. She was moved to the ICU. Precedex drip was initiated. Lopressor was initiated at 25 twice a day. Metoprolol tartrate 5 mg IV every 6 hours. Systolic blood pressure more than 160. Started chest x-ray was obtained and suggest stable bilateral consolidation suggestive of COVID-19 pneumonia. 09/12 patient is seen in the ICU is currently mechanically ventilated and sedated on vent settings of respiratory rate 36, tidal volume 375 FiO2 80% PEEP of 18.. Vital signs reviewed patient had a temp of 100.4 pulse 150 respiratory rate 36 oxygen saturation 95% on 80% on fio2 .'s labs are reviewed which patient had a d-dimer 1.84 that is increased to 14.3. Arterial Blood gas suggest ph 7.35, CO2 40, po2 62, . Her BMP suggest a sodium 135 potassium 3.7 chloride 112 bicarb 21 creatinine 1.57 for calcitonin is 3.5 CRP is increased from 8.78.2 LDH is increased to 2614. Patient remains on Pneumovax, propofol drip. Lovenox increased to 50 subcu twice a day. Patient received 2 L of IV fluids. Continue IV fluids at 100 mL/h. Bicarb drip discontinued patient initiated on Zosyn 3.375 every 8 hours. Continue insulin drip at 4 units per hour. Patient is currently in prone positioning 09/13: Patient evaluated in the ICU remains on Ventilation continues to be sedated, in prone position. Vent settings are respiratory rate 36, tidal vital 375, FiO2 70% PEEP of 18. ABG shows pO2 of 82, PCO2 of 39, pH is 7.19. Latest labs show WBC 11.1, hemoglobin 13.2, d-dimer still pending, but yesterday was up to 14.3. Creatinine up to 3.4, BUN 24 sodium 137, potassium 4.0. Patient's urine output has been low, nephrology on consult. Bicarb drip increased to 100 miles an hour, receiving another liter of normal saline, she did have a ultrasound that showed unremarkable bilateral kidneys. Repeat chest x-ray showed bilateral lung infiltrates that are stable. Anion gap has closed, will start Lantus 10 units at at bedtime Novolog every 6 hours. 09/14: Patient is seen in the ICU, still currently mechanically ventilated and sedated. She continues in the prone position. Her oxygen quickly drops if she is not in prone. Patient's kidney function has worsened. Laboratory values show creatinine of 4.87, BUN 33, LDH 2191, C-reactive protein 2.7. ABG shows pH 7.32, pO2 of 60, pCO2 43. Patient is making almost no urine overnight. Nephrology is following patient continues on cefepime for urinary tract infection, culture is still pending. Vascular has been consulted for placement of temporary hemodialysis catheter for plans for dialysis. 09/15: Patient evaluated in the ICU, continues to be mechanically ventilated and sedated on assist control ventilation rate of 36, tidal volume 375, FiO2 100% and PEEP of 18. ABG today shows pO2 58, pCO2 of 45, and pH 7.35. She continues on tube feedings. Yesterday patient underwent ultrasound-guided right internal jugular non-tunneled hemodialysis catheter placement. Patient underwent hemodialysis treatment last night and plans have another hemodialysis treatment today. She continues to make almost no urine. She continues on cefepime for antibiotic coverage, and continues on Decadron and Lovenox. 09/16: Patient seen on follow-up remains in the ICU mechanically ventilated and sedated. She continues on assist control rate of 36, tidal volume 375, FiO2 100% and PEEP of 20. PEEP had to be increased due to patient had to be in supine position for dialysis, will go back to prone position once dialysis is complete. ABG shows pH 7.32, pCO2 49, PaO2 61. Laboratory values showed WBC 11.2, hemoglobin 11, sodium 134, creatinine 4.44, BUN 38. Urine culture shows no growth, blood cultures show no growth to date. Repeat chest x-ray shows bilateral pleural effusions, correlate for ARDS, pulmonary edema, diffuse pneumonia, findings are stable from last exam. Patient does not require any pressors, blood pressure 133/57, heart rate 78. 5/16: Patient was evaluated in the ICU today for follow-up. She continues to be intubated and on mechanical ventilation. Current vent settings are tidal volume 375, FiO2 100% and PEEP of 20. ABG shows pH 7.37, pCO2 40, pO2 102. She continues with intermittent prone positioning. Patient continues to have almost no urine output, maintained on dialysis. Patient received dialysis yesterday without complication. Laboratory values revealed WBC 10.3, hemoglobin 10.4, sodium 132, potassium 3.1, BUN 33, creatinine 4.29, LDH 1913, C-reactive protein 1.3. Urine and sputum cultures are negative, blood cultures show no growth to date. Consult placed to dietary to start TPN[ ] 09/18: She remains in the intensive care unit intubated and on mechanical ventilation with tidal volume 375, FiO2 60 and PEEP of 20. Patient is being prone to daily at approximately 16 hours per day. Pulmonary medicine has added in Dr. Zhang to do PEG tube and trach today. Patient is not on vasopressors. Repeat blood work reveals WBC 12.6, hemoglobin 9.8, platelet count 212. Sodium 133, potassium 3.2, chloride 102, CO2 21, BUN 35 and creatinine 4.12. Blood sugar 126. Patient underwent hemodialysis yesterday with removal of 2 L and is scheduled again today with goal of 2-3 L and is scheduled again tomorrow. 09/19: She is scheduled for hemodialysis today and is off fentanyl temporarily. Patient is status post trach and PEG tube yesterday. And she remains on mechanical ventilation. Pulse ox 93-95%. She has been afebrile, heart rate 64, respiratory rate 36, blood pressure 115/50. Fentanyl is off to improve blood pressure for hemodialysis which is scheduled for today. Contacted vascular surgery about permanent hemodialysis catheter. Repeat blood work reveals WBC 14.3, hemoglobin 9.6, platelet count 200. D-dimer 6.48. LDH 1686. C-reactive protein 1.1. BUN 34 creatinine 3.81. Sodium 130, potassium 3.5, chloride 101, CO2 18. Blood sugars running between 101 198. Plan is to wean off Pneumovax today. Patient remains on insulin drip. Repeat chest x-ray reveals bilateral multifocal confluent opacities consistent with COVID-19. Some improved aeratio n periphery of the left lung and worsening opacities throughout the right lung. 09/20: She remains in the intensive care unit on mechanical ventilation. She has been afebrile, heart rate 65, respiratory rate 37, blood pressure 121/70, pulse ox 91-99%. Repeat blood work reveals WBC 14.5, hemoglobin 9.1, platelet count 216. D-dimer 6.13. Sodium 133, potassium 3.1, chloride 102, CO2 18, BUN 35 and creatinine 4.27. Blood sugars running between 128 and 143. LDH 1717. C- reactive protein 1.7. Patient remains on insulin drip which will be transitioned to NovoLog scale every 6 hours. Patient is scheduled for permanent hemodialysis catheter placement today with vascular surgery. Repeat chest x-ray reveals stable diffuse bilateral interstitial and airspace disease. Possible small right effusion. His work is following for transfer to [facility] care [facility]. Do not anticipate discharge until next week. 09/21: Patient is undergoing hemodialysis. She remains on mechanical ventilation with tidal volume 375, FiO2 down to 45 and PEEP was decreased to 15. Patient is continued on propofol, fentanyl drips. She is on tube feedings at goal. Patient was taken off insulin drip yesterday and on scale only but blood sugars are running in the 200s, Levemir scheduled at bedtime will be added. Other blood work reveals WBC 13.3, hemoglobin 8.7, platelet count 192. Sodium 137, potassium 3.6, chloride 107, CO2 18, BUN 34 and creatinine 4.21. Repeat chest x-ray is stable. 09/22: She remains in the intensive care on mechanical ventilation with tidal volume 375, FiO2 of 50 and PEEP of 10. Pulse ox is running 96%. She is afebrile, heart rate in the 50s, respiratory rate 36, blood pressure 100/64. Repeat blood work reveals WBC 16.5, hemoglobin 8.9, platelet count 213. Sodium 134, potassium 3.7, chloride 103, CO2 21, BUN 34 and creatinine 3.89. Blood sugars running in the 200s to 324. Levemir increased to 16 units at bedtime and continue NovoLog scale every 6 hours. Patient is on tube feedings at goal. She has a Haley catheter in with a scant amount of dark/brown urine. Fecal management system is in place. Repeat chest x-ray reveals diffuse bilateral airspace infiltrates persist unchanged. Patient is scheduled for hemodialysis tomorrow morning on Friday. 09/23: Patient remains on mechanical ventilation with tidal volume 3.75, FiO2 50 and PEEP of 10. athletic monitor sinus rhythm. She has no urine output. Fecal management system is in place. She is undergoing dialysis at this time with plan for removal of 2-1/2 L. She has been afebrile, heart rate in the 50s, respiratory rate 36, blood pressure 108/76 and pulse ox 89%. WBC 13.6, hemoglobin 9.1, platelet count 194. Sodium 136, potassium 3.0 and was replaced, chloride 106, CO2 21, BUN 49 creatinine 5.31. Blood sugars are running between 182 and this morning 194. Patient was still in the 200s and 300s. Levemir last evening was increased to 16 units. Patient remains on propofol and fentanyl drips. Lovenox was increased to 60 mg twice daily. 09/24: PEEP was increased today to 20, tidal volume is at 375 and FiO2 of 50%. Patient has been afebrile. She has been started on levo fed. Repeat chest x- ray reveals bilateral multifocal confluent opacities consistent with Covid 19 or ARDS redemonstrated. Nephrology will plan dialysis for tomorrow for 3 L. Patient remains on propofol fentanyl and Nimbex. WBC 12.5, hemoglobin 9.8, platelet count 161. D-dimer 13.3. Sodium 132, potassium 3.4, chloride 102, CO2 20, BUN 48 and creatinine 4.67. Blood sugars extremely elevated to 96-409. LDH 2217. 09/25: Patient remains in the intensive care unit on mechanical ventilation with tidal volume 375, FiO2 50 and PEEP of 20. Patient is afebrile, heart rate 61, respiratory rate 36, blood pressure 102/56, pulse ox 97%. Repeat blood work reveals WBC 9.3, hemoglobin 8.5 and platelet count 171. Sodium 130, potassium 3.7, chloride 100, CO2 20, BUN 61 creatinine 5.65. Blood sugars have been elev ated up to 455. Levemir increased to 20 units twice daily, NovoLog 5 units every 6 hours and continue NovoLog scale. Patient is scheduled for hemodialysis today. Repeat chest x-ray reveals bilateral multifocal and confluent opacities. Decadron and Lovenox dosing change by pulmonary. Patient is off norepinephrine. 09/26: Patient remains in the intensive care unit on mechanical ventilation with tidal volume 375, FiO2 50 and PEEP of 15. She has been afebrile, heart rate 91, blood pressure 114/68, pulse ox 99%. athletic monitor sinus rhythm. 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 Sodium 134, potassium 3.6, chloride 102, CO2 22, BUN 41 creatinine 4.21. Patient has improved blood sugars this morning running 150s and 160s. Diabetic medications were adjusted yesterday. Patient is awake and alert and interacting. Yesterday, patient had PICC line inserted by interventional radiology. Repeat chest x-ray reveals diffuse airspace infiltrates in both lung ann appear to progress slightly in the interval. 09/27: Patient remains in intensive care unit on mechanical ventilation with improvement of settings with tidal volume 375, FiO2 decreased to 40 and PEEP decreased to 10. Patient is on hemodialysis every other day and plan to remove 3 L today. Patient is more awake and alert. She is slow to respond but is able to follow simple commands. Blood sugars are running between 84 and 123. Repeat blood work reveals WBC 7.1, hemoglobin 8.1, platelets 152. Sodium 135, potassium 3.6, chloride 103, CO2 21, BUN 53 and creatinine 5.88. Repeat chest x-ray revealed cardiomegaly and pulmonary edema. Patient is on tube feedings:. Patient is not require vasopressors and is off sedation. Fecal management system remains in place for brown liquid stool. C. difficile was negative. 09/28: Patient remains on mechanical ventilation with tidal volume 375, FiO2 increased to 80 and PEEP increased to 18. Patient had a rough night was very anxious, no pain. Xanax 0.25 mg 3 times daily was added. There is concern for pulmonary embolism for which patient was started on heparin drip, she is unable to undergo CAT scan. Venous Doppler bilateral lower extremities was nondiagnostic due to extensive edema in obese patient but minimal imaging of the popliteal veins does show flow. Repeat echocardiogram has been ordered. Cefepime has also been ordered at 1 g IV piggyback every 24 hours as well as vancomycin, pharmacy dosing. Patient is back on fentanyl drip, propofol drip and norepinephrine. Blood sugars are elevated and insulin Levemir will be i ncreased to 25 mg twice daily. Ferrlecit infusion has been ordered by nephrology for 4 days. Patient is undergoing hemodialysis today.temperature max 100.2, heart rate 134, respiratory rate 34, blood pressure 120/65, pulse ox 94%. athletic monitor is sinus tachycardia. Repeat blood work reveals WBC 16.9, hemoglobin 9.7, platelet count 216. D-dimer 8.81. Sodium 134, potassium 3.8, chloride 99, CO2 25, BUN 43 and creatinine 5.36. Blood sugars in the 200s. AST 40. 09/29 Patient had declined more last 48 hours require more sedation, patient is doing hemodialysis, respiratory failure is quite bit worse this time. Patient was inquired the pain is well back on fentanyl drip. Her vent set up with PEEP is limited but higher. No new finding on culture and her chest x-ray continues shows diffuse infiltrate persistent although there is a moderate interval improvement. 09/30 patient's was seen and evaluated. PEEP was reduced to 11 as patient is maintaining good saturation at the current vent settings. 10/01 patient was seen at bedside. She is currently on assist control rate of 28 white tidal volume 350 FiO2 50% and PEEP of 10 which has been reduced by pulmonary as patient name cleaning her oxygen saturation. Arm blood gas was obtained with a pH of 7.35 pCO2 37 pO2 of 63. She remains hemodynamically stable with no need for pressors. Labs were reviewed patient's BUN is 29 crea tinine 3.93 glucose 122 albumin 2.2 sodium 131 chloride 19 hemoglobin is downtrending with a Hb of 7.3 no leukocytosis 7.1. Patient's urine output is minimal at this time. Her rate has increased to 129 and is currently on positive fluid balance even with dialysis. Last dialysis was done yesterday. Continue enteral feeding currently at goal. Antibiotic has been discontinued and continues to remain on DEXA methicillin 4 mg IV daily. 10/02 patient continues to be on trach support with mechanical ventilation. Patient was evaluated by founder and chief technical officer and was switched to VC control as patient was noted to be double stacking on and off throughout the night. Respiratory rate continue to 28 tidal volume increased to 400 with a PEEP for Dr. Downey. Patient is maintaining oxygen saturation 91% on the current setting. According to the nurse bedside patient saturation drops significantly or she is moved or her sedation is dropped. Patient is currently on propofol drip, fentanyl drip. She did underwent dialysis today and was able to maintain her low pressure without the need of pressors. Labs reviewed today suggest a WBC of 6.7 hemoglobin of 7.0 and d-dimer 3.9 bicarb 17 BUN 38 creatinine 4.8. LDH is 964. Sodium 1:30 likely secondary to volume overload. Urine sodium and urine osmolality ordered. Patient's glucose this morning is 146. Continue to remain on enteral feeding. Urine output is reduced. Fall catheter will be placed today. Continue to remain on dialysis. 10/03: Patient remains on mechanical ventilation and is back on propofol and fentanyl drips. Patient is currently on VC control with tidal volume 400, FiO2 55 and PEEP of 12. Patient still is not making any urine and is dialysis dependent with next treatment planned for tomorrow with removal of 3-3-1/2 L. PEG tube feedings are at goal. Fecal management system remains in place. At the time of evaluation, patient is off levophed. Repeat chest x-ray reveals stable diffuse bilateral airspace disease correlate for ARDS, pulmonary edema or diffuse pneumonia. Temperature max last evening was 101. Temperature currently 99, heart rate 106, respiratory rate 32, blood pressure 101/50, pulse ox 86%. Repeat blood work reveals WBC 6, hemoglobin 7.4, platelet count 160. D-dimer 4.05. Sodium 133, potassium 3.5, chloride 100, CO2 23, BUN 31 creatinine 3.8. Blood sugars are running between 100 and 170. Ferritin 1514. Liver function test normal. LDH 1016, C-reactive protein 13.6. Prognosis remains guarded. 10/04: Patient remains intubated on mechanical ventilation with tidal volume 400, FiO2 65, PEEP of 14. Patient continues to run fevers and repeat blood culture and urine and urine culture ordered for today. Haley catheter has been removed this patient has no significant urine output at about 20 mL per shift. BladderScan is monitored for greater than 300 and the patient is straight cathed. Hemoglobin is 6.8 and she has been ordered 41 unit of packed RBCs today. She is currently on propofol and fentanyl drips. She is scheduled for hemodialysis today. WBC 4.5, hemoglobin 6.8, platelet count 151. D-dimer 3.28. Sodium 132, potassium 4.1, chloride 100, CO2 22, BUN 37 creatinine 4.74. Blood sugars running between 97 and 110. Ferritin 1801. LDH 859. C-reactive protein 14.4. Chest x-ray reveals correlate for pneumonia, edema, ARDS. Prognosis remains guarded. 10/05: Patient remains in intensive care unit currently on mechanical ventilation with tidal volume 400, FiO2 was increased to 100 and PEEP is at 14. She continues to run fevers which have worsened with temperature max 103.1. She has been tachycardic in the 130s, blood pressure is marginal but not on vasopressors. Pulse ox currently 92%. Repeat blood work reveals WBC 5.5, hemoglobin 7.6, platelet count 190. D-dimer 2.7, ferritin 1770, LDH 932, C- reactive protein 21.4. Blood sugars are running between 100 1669. Electrolytes are normal. BUN 27 and creatinine 3.79. Pancultures were done yesterday including a straight cath for urine culture, sputum culture and blood culture. Arterial line was removed as well as midline. She is currently on propofol, fen tanyl and started on Nimbex today. 10/06: Patient remains in the intensive care unit. Today patient in prone position and remains on mechanical ventilation with tidal volume 350, FiO2 65 and PEEP of 14. Her last documented fever was yesterday at 2 PM. Heart rate is in the 120s, respiratory rate 32, pulse ox 88-92%. CBC is unremarkable. Electrolytes are normal. BUN 30 creatinine 2.93. Blood sugars are running between 135 and 164. Cultures from October 04: Blood culture no growth, sputum culture finalized, urine culture finalized. Catheter tip culture is in process. Repeat chest x-ray shows bilateral interstitial infiltrates. Patient is on tube feedings of Nepro at goal of 30 ML's per hour. Patient underwent dialysis yesterday and is scheduled for repeat dialysis today. 10/07: Patient maintains in the intensive care unit intubated and on mechanical ventilation. She is receiving hemodialysis this morning has been every day. Plan is to remove 2-1/2 L today. Vent settings have changed today with tidal volume 350, FiO2 was increased to 100% and PEEP remains at 14. She has been continued on Nimbex, fentanyl, norepinephrine and propofol. Plan is to prone position patient following dialysis. Repeat chest x-ray reveals worsening interstitial infiltrates. BUN is 26 and creatinine 2.59. LDH 955, C-reactive protein 22.1. Prognosis remains poor. 10/08: Patient remains in intensive care unit intubated and on mechanical ventilation with tidal volume 350, FiO2 60, PEEP of 14. She is pronating today. She is scheduled for hemodialysis on a daily basis. She has been afebrile, heart rate 112, respiratory rate 36, blood pressure 161/88, pulse ox 93%. Repeat blood work reveals WBC 9.9, hemoglobin 9.1, platelet count 320. Sodium 133, potassium 5.3, chloride 100, CO2 20, BUN 29 creatinine 2.44. Blood sugar running between 102 and 139. LDH 1026, C-reactive protein 19.7. 10/09: Patient is undergoing dialysis this morning. She continues to be intubated and on mechanical ventilation with tidal volume 350, 270 and PEEP of 14. Patient is also on propofol, Nimbex, norepinephrine and fentanyl drips. Repeat chest x-ray reveals persistent bilateral multifocal and confluent opacities consistent with Covid 19. She is afebrile, heart rate 116, respiratory rate 36, blood pressure 120/65, pulse ox 91%. Repeat blood work reveals WBC 5.4, hemoglobin 9.2, platelet count 216. D-dimer 2.67, ferritin 2568, LDH 794, C- reactive protein 13.9. Blood sugars have been running 90-104. Creatinine 1.64. She is on daily dialysis treatment. 10/10: She remains in the intensive care unit. She is now out of isolation as a repeat Covid test came back negative. She remains on mechanical ventilation with tidal volume 350, FiO2 70 and PEEP of 14. Patient is also on Nimbex, propofol, norepinephrine, fentanyl drips. She is on PEG tube feedings at goal and tolerating well. Repeat blood work reveals WBC 7.8, hemoglobin 7.5, platelet count 267. Sodium 139, potassium 3.9, chloride 109, CO2 20, BUN 20 creatinine 1.29. Blood sugars are running between 76 and 102. Scheduled Aiyana Log decreased to 3 units. Repeat chest x-ray reveals moderate cardiomegaly and continued pulmonary edema. Slight interval improvement. Patient is continued on daily hemodialysis. 10/11: Patient remains in intensive care unit on mechanical ventilation with tidal volume 325, FiO2 70, PEEP 14. She is currently being prone. She underwent hemodialysis this morning with removal of 4 L of fluid with plan to continue daily treatment. She is currently on Nimbex, fentanyl and propofol. No vasopressor at this time. Fecal management system remains in place. She is on tube feedings currently at hold due to prone positioning. Patient has been afebrile, heart rate 116, respiratory rate 36, blood pressure 100/58, pulse ox 93-96%. Repeat blood work reveals WBC 9.3, hemoglobin 8.1, platelet count 276. Sodium 136, potassium 4.3, chloride 103, CO2 20, BUN 20 creatinine 1.14. Blood sugars running between 133 and 202. 10/12: Patient remains in the intensive care unit. She is undergoing hemodialy sis this morning. She's been afebrile, heart rate in the 120s, respiratory rate 32, blood pressure 102/65. She is not on vasopressors. She is continued on Nimbex, fentanyl and propofol. Vent settings are currently tidal volume 325, FiO2 70, PEEP 14. Total platelet count 273. Sodium 133, potassium 4.7, chloride 100, CO2 19, BUN 21 creatinine 0.91. Blood sugars running between 121 and 143. 10/13: Patient remain in the ICU she is on hemodialysis daily, she is still on the vent with a PEEP of 14 and FiO2 of 70. Her oxygenation is marginal pulse rate still high. Patient had scratched cornea was seen in ophthalmology decided to keep doing eyedrops along with eye patch at this point. Prognosis still very bad this point. 10/14: She remains on mechanical ventilation with tidal volume 325, FiO2 70% and PEEP of 14. She did require label fed last evening for about 6 hours. She did not tolerate pronating yesterday. She is undergoing dialysis this morning with plan for removal of 4 L. Blood sugars have been low and IV fluids changed to D10 until blood sugars have recovered. Levemir and scheduled NovoLog discontinued. Patient is on tube feedings at goal there's been no change in th is. 10/15 patient remains on mechanical ventilation in the intensive care unit. FiO2 still at 70%, PEEP of 18. Blood sugars have improved since medications were adjusted. White blood cells 33.9, hemoglobin 8.5, sodium 135, BUN 19, creatinine 0.96. Patient to receive dialysis again today. Patient did run a low-grade fever throughout the night and pro calcitonin level is ordered. Chest x-ray showed continued diffuse bilateral airspace disease. Patient remains on tube feedings at goal. 10/16: Patient remains on mechanical ventilation with tidal volume 300, FiO2 70, PEEP of 15. Fecal management system is out. She is currently on low dose of norepinephrine. She is also on fentanyl drip, propofol drip, rocuronium drip. Heart rate is running in the 130s, sinus rhythm, blood pressure 121/63, pulse ox 95%. Patient is been afebrile. Repeat blood work reveals WBC 18.9, hemoglobin 7.5, platelet count 291. Sodium 135, potassium 4.2, chloride 101, CO2 19, BUN 25 and creatinine 1.36. Blood sugars are running between 143 and 199. Patient is on scale insulin only. Repeat chest x-ray reveals persistent bilateral multifocal and completed opacities consistent with Covid 19. 10/17: Patient remains on mechanical ventilation with tidal volume 300, FiO2 50, PEEP of 14. She is currently receiving hemodialysis. The patient is having yellow-colored drainage from the trach site. This is going to be culture today. Repeat blood work reveals WBC of 24, hemoglobin 7.3 and platelet count 310. Sodium 136, potassium 4.1, chloride 101, CO2 19, BUN 24 creatinine 1.43. Blood sugar 139. Capillary blood glucose running 147 and 189. Repeat chest x-ray is unchanged. Patient had increased respiratory rate 40s and 50s with oxygen saturation of 87 and now was increased and Seroquel added this morning. Prognosis remains guarded. 10/18: Patient remains on mechanical ventilation with tidal volume 300, FiO2 60, PEEP has been decreased to 12. Patient will need a PEEP of 8 in order to tra nsfer to long-term care. She is currently on fentanyl drip and Precedex drip. Patient is tracking when her name is stated. She seems to be slightly improved today. Patient has been afebrile, heart rate 106, respiratory rate 32, blood pressure 110/61, pulse ox 98%. Repeat blood work reveals WBC 30.3, hemoglobin 7.2, platelet count 350. Sodium 139, potassium 4.2, chloride 103, CO2 20, BUN 23 creatinine 1.79. Blood sugars are increasing running up 299. Patient will be placed on Levemir. Secretions from tracheotomy sent for culture and in process. She is currently undergoing hemodialysis. REVIEW OF SYSTEMS Unable to obtain due to mechanical ventilation. PHYSICAL EXAMINATION Gen: This is is a 35-year-old black female, patient is intubated and on mechanical ventilation, appears to be comfortable. Patient is undergoing hemodialysis. HEENT: Head is atraumatic, normocephalic. Pupils equal, round. Sclerae is anicteric. Tracheostomy midline. NECK: Supple. No JVD. No lymphadenopathy. No thyromegaly. LUNGS: Coarse bilateral rhonchi. No intercostal retractions. HEART: Regular rate and rhythm. No murmur. ABDOMEN: Soft. Bowel sounds are present. No masses. No tenderness. EXTREMITIES: Trace bilateral pedal edema. No calf tenderness. NEUROLOGICAL: Patient is sedated. ASSESSMENT AND PLAN 1. Acute hypoxic respiratory failure secondary to Covid 19 pneumonia and possible bacterial pneumonia. Patient was intubated on September 11. She is status post 1 dose of Remdesivir and 1 dose of Tocilizumab. Continue Ventolin inhaler 4 times daily, Symbicort twice daily, Decadron 4 mg IV daily, Lovenox 30 mg subcu daily, supplements. Status post PEG tube and trach. Isolation precautions removed. Prone positioning held due to intolerance. 2. Acute diabetic ketoacidosis secondary to Covid 19 pneumonia, uncontrolled with hyperglycemia. Levemir 60 units daily resumed and continue NovoLog scale. 3. Metabolic encephalopathy secondary to Covid 19 and DKA. 4. Sepsis and septic shock secondary to Covid 19 pneumonia with multiorgan failure. Continue as in #1. Trach drainage culture to be obtained. 5. Acute metabolic acidosis secondary to acute DKA, Covid 19 and acute kidney injury. Sodium bicarb 650 mg 3 times daily, Renvela 1600 mg 3 times daily.. 6. Diabetes mellitus type 2 uncontrolled with A1c 13.6. Continue as above. 7. Hypophosphatemia status post replacement. 8. Hyperkalemia secondary to DKA, resolved. 9. Sinus tachycardia secondary to sepsis, volume deficiency. 10. Acute kidney injury secondary to ATN secondary to Covid 19 and DKA. Continue daily hemodialysis. Permanent dialysis catheter placed. 11. Possible acute gram-negative pneumonia versus MRSA pneumonia. Completed course of antibiotics. 12. Hypertension. 13. Morbid obesity with BMI of 53. 14. DVT prophylaxis. Lovenox. 15. GI prophylaxis. Protonix 40 mg IV push daily. CODE STATUS: Full code Prognosis poor. DISCHARGE PLAN [facility] Impression and plan of care have been directed as dictated by the signing physician. Kimberly Boswell nurse practitioner acting as scribe for signing physician. Objective - Vital Signs Vital signs: Vital Signs Temp 99.4 F 10/18/20 08:00 Pulse 120 H 10/18/20 08:00 Resp 32 H 10/18/20 08:00 BP 124/66 10/18/20 08:00 Pulse Ox 95 10/18/20 08:00 Intake & Output 10/17/20 10/18/20 10/18/20 18:59 06:59 18:59 Intake Total 1208.302 905.109 100.506 Output Total 4000 Balance -2791.698 905.109 100.506 Weight 115.1 kg 115.1 kg Intake: IV 276 276 13 0.9 Normal Saline 36 36 3 Pressure Bag Sodium Chloride 0.9% 500 240 240 10 ml 500 ml @ 10 mls/hr IV .Q24H [facility] Rx#:[id number] Intake, IV Titration 792.302 419.109 87.506 Amount Dexmedetomidine/0.9% NaCl 196.852 184.012 (Pmx) 400 mcg In Empty Bag 1 bag @ Titrate IV . Q0M [facility] Rx#:[id number] Norepinephrine 8 mg In 7.625 72.922 87.506 Sodium Chloride 0.9% 250 ml @ 0.05 MCG/KG/MIN 11. 049 mls/hr IV .[id number] [facility] Rx#:[id number] fentaNYL (PF) 2,500 mcg 587.825 162.175 In Sodium Chloride 0.9% 200 ml @ Per Protocol IV .Q0M [facility] Rx#:[id number] Tube Feeding 80 120 Other 60 90 Output: Hemodialysis 4000 Other: Voiding Method Incontinent Incontinent # Voids 0 0 # Bowel Movements 1 ABP, PAP, CO, CI - Last Documented Arterial Blood Pressure 102/65 - Labs CBC & Chem 7: 10/18/20 05:35 10/18/20 05:35 Labs: Abnormal Lab Results - Last 24 Hours (Table) 10/17/20 10/17/20 10/17/20 Range/Units 05:00 11:41 12:03 WBC (3.8-10.6) k/uL RBC (3.80-5.40) m/uL Hgb (11.4-16.0) gm/dL Hct (34.0-46.0) % RDW (11.5-15.5) % Neutrophils # (Manual) (1.3-7.7) k/uL Monocytes # (Manual) (0-1.0) k/uL Metamyelocytes # (Man) (0) k/uL Myelocytes # (Manual) (0) k/uL Nucleated RBCs (0-0) /100 WBC ABG pH 7.29 L (7.35-7.45) ABG pCO2 51 H (35-45) mmHg ABG pO2 53 L* (83-108) mmHg ABG Total CO2 26 H (19-24) mmol/L ABG O2 Saturation 83.4 L (94-97) % Carbon Dioxide (22-30) mmol/L BUN (7-17) mg/dL Creatinine (0.52-1.04) mg/dL Glucose (74-99) mg/dL POC Glucose (mg/dL) 138 H (75-99) mg/dL Calcium (8.4-10.2) mg/dL Phosphorus 7.0 H (2.5-4.5) mg/dL 10/17/20 10/17/20 10/17/20 Range/Units 15:57 16:54 17:25 WBC (3.8-10.6) k/uL RBC (3.80-5.40) m/uL Hgb (11.4-16.0) gm/dL Hct (34.0-46.0) % RDW (11.5-15.5) % Neutrophils # (Manual) (1.3-7.7) k/uL Monocytes # (Manual) (0-1.0) k/uL Metamyelocytes # (Man) (0) k/uL Myelocytes # (Manual) (0) k/uL Nucleated RBCs (0-0) /100 WBC ABG pH 7.26 L (7.35-7.45) ABG pCO2 52 H (35-45) mmHg ABG pO2 (83-108) mmHg ABG Total CO2 25 H (19-24) mmol/L ABG O2 Saturation (94-97) % Carbon Dioxide (22-30) mmol/L BUN (7-17) mg/dL Creatinine (0.52-1.04) mg/dL Glucose (74-99) mg/dL POC Glucose (mg/dL) 213 H 179 H (75-99) mg/dL Calcium (8.4-10.2) mg/dL Phosphorus (2.5-4.5) mg/dL 10/18/20 10/18/20 10/18/20 Range/Units 00:43 04:08 05:35 WBC 30.3 H (3.8-10.6) k/uL RBC 2.58 L (3.80-5.40) m/uL Hgb 7.2 L (11.4-16.0) gm/dL Hct 23.3 L (34.0-46.0) % RDW 17.3 H (11.5-15.5) % Neutrophils # (Manual) 22.40 H (1.3-7.7) k/uL Monocytes # (Manual) 3.94 H (0-1.0) k/uL Metamyelocytes # (Man) 0.91 H (0) k/uL Myelocytes # (Manual) 0.61 H (0) k/uL Nucleated RBCs 1 H (0-0) /100 WBC ABG pH 7.25 L (7.35-7.45) ABG pCO2 50 H (35-45) mmHg ABG pO2 (83-108) mmHg ABG Total CO2 (19-24) mmol/L ABG O2 Saturation (94-97) % Carbon Dioxide (22-30) mmol/L BUN (7-17) mg/dL Creatinine (0.52-1.04) mg/dL Glucose (74-99) mg/dL POC Glucose (mg/dL) 199 H (75-99) mg/dL Calcium (8.4-10.2) mg/dL Phosphorus (2.5-4.5) mg/dL 10/18/20 10/18/20 Range/Units 05:35 05:38 WBC (3.8-10.6) k/uL RBC (3.80-5.40) m/uL Hgb (11.4-16.0) gm/dL Hct (34.0-46.0) % RDW (11.5-15.5) % Neutrophils # (Manual) (1.3-7.7) k/uL Monocytes # (Manual) (0-1.0) k/uL Metamyelocytes # (Man) (0) k/uL Myelocytes # (Manual) (0) k/uL Nucleated RBCs (0-0) /100 WBC ABG pH (7.35-7.45) ABG pCO2 (35-45) mmHg ABG pO2 (83-108) mmHg ABG Total CO2 (19-24) mmol/L ABG O2 Saturation (94-97) % Carbon Dioxide 20 L (22-30) mmol/L BUN 23 H (7-17) mg/dL Creatinine 1.79 H (0.52-1.04) mg/dL Glucose 169 H (74-99) mg/dL POC Glucose (mg/dL) 199 H (75-99) mg/dL Calcium 10.3 H (8.4-10.2) mg/dL Phosphorus (2.5-4.5) mg/dL Microbiology - Last 24 Hours (Table) 10/17/20 10:55 Gram Stain - Preliminary Trachea Wound Culture - Preliminary 10/17/20 10:55 Anaerobic Culture - Preliminary Trachea
--- NOTE | 2020-10-18 12:59 | PN ---
PROGRESS NOTE Patient is seen for followup for acute kidney injury currently dialysis dependent with volume overload, receiving daily dialysis with UF of about 4 L almost on a daily basis. The patient is currently awake. She remains on the vent. She seems to be following commands. The patient continues to be severely oliguric with no significant urine output. PHYSICAL EXAMINATION: On examination today, blood pressure was 110/61, heart rate 106 per minute. She is afebrile. Examination of lower extremities shows edema 1+ bilaterally, upper and lower extremities. Abdomen is soft, nontender. The patient is awake. She is tolerating tube feeds. She remains on the vent. She is status post trach and PEG. LABS: Reviewed. Hemoglobin 7.2, sodium of 139, potassium 4.2, chloride 103, CO2 is 20, BUN 26, creatinine 1.79, calcium remains 10.3. ASSESSMENT: 1. Acute kidney injury oliguric acute tubular necrosis, dialysis dependent, receiving daily treatments with UF about 4 L almost on a daily basis. We will continue to dialyze the patient daily. Her volume status has significantly improved. Oxygenation is also improved. 2. Acute hypoxic respiratory failure secondary to pneumonia. 3. COVID pneumonia. 4. Metabolic acidosis associated with renal failure. 5. Mild hypercalcemia. Calcium level remains at 10.3. We will dialyze on the low calcium bath and check vitamin D levels and PTH levels and Angel level. MMODL / IJN: [id number] /
[2020-10-18] MEDS: CEFEPIME 1 GM in SODIUM CHLORIDE 0.9% 50 ML IVPB SCH (14:47)
[2020-10-18 17:49] LABS: Glucose,Whole Blood 216 mg/dL (75-99)
[2020-10-18] MEDS: NOREPINEPHRINE 8 MG in SODIUM CHLORIDE 0.9% 250 ML IV SCH (19:50)
[2020-10-18] MEDS: QUEtiapine 100 MG TAB PO SCH (21:28)
[2020-10-18] MEDS ORDERED: QUEtiapine 100 MG TAB PO STA (22:04)
[2020-10-19 00:32] LABS: Glucose,Whole Blood 210 mg/dL (75-99)
[2020-10-19] MEDS: INSULIN ASPART (NovoLOG) 100 UNIT/ML VIAL SQ SCH ×4 (00:46→18:51)
[2020-10-19] MEDS: DEXMEDETOMIDINE/0.9% NACL(PMX) 400 MCG in EMPTY BAG 1 BAG IV SCH ×3 (01:45→19:15)
[2020-10-19] MEDS: fentaNYL (PF) 2,500 MCG in SODIUM CHLORIDE 0.9% 200 ML IV SCH ×2 (01:59→09:11)
[2020-10-19 04:22] LABS: ABG HCO3 23 mmol/L (21-25); ABG Oxygen Saturation 95.3 % (94-97); ABG PCO2 45 mmHg (35-45); ABG PH 7.32 (7.35-7.45); ABG PO2 82 mmHg (83-108); ABG TCO2 25 mmol/L (19-24); Allen Test Performed? Yes
[2020-10-19 04:39] LABS: Anisocytosis Slight; HCT 22.3 % (34.0-46.0); HGB 7.2 gm/dL (11.4-16.0); Hypochromasia Marked; MCH 29.1 pg (25.0-35.0); MCHC 32.3 g/dL (31.0-37.0); MCV 90.1 fL (80.0-100.0); Mean Platelet Volume 8.7; Platelet Count 279 k/uL (150-450); Poikilocytosis Moderate; RBC 2.47 m/uL (3.80-5.40); RDW 17.5 % (11.5-15.5); WBC 19.9 k/uL (3.8-10.6)
[2020-10-19] MEDS: NOREPINEPHRINE 8 MG in SODIUM CHLORIDE 0.9% 250 ML IV SCH (04:42)
[2020-10-19 04:46] LABS: Calcium 9.8 mg/dL (8.4-10.2); Potassium 3.5 mmol/L (3.5-5.1)
[2020-10-19] MEDS: ACETAMINOPHEN TAB 325 MG TAB PO PRN (04:48)
[2020-10-19] MEDS: POTASSIUM BICARBONATE/CIT AC 20 MEQ TABLET.EFF NG-TUBE SCH ×2 (05:25→06:07)
[2020-10-19 05:41] LABS: Anisocytosis (M) Present; Band Neutrophils % 8 %; Hypochromasia (M) Present; Lymphocytes # (M) 2.19 k/uL (1.0-4.8); Metamyelocytes % 2 %; Monocytes # (M) 1.19 k/uL (0-1.0); Neutrophils % (M) 71 %; Nucleated Red Blood Cells 0 /100 WBC (0-0); Total Cells Counted 100
[2020-10-19 05:59] LABS: Glucose,Whole Blood 227 mg/dL (75-99)
[2020-10-19] MEDS: INSULIN DETEMIR (LEVEMIR) 100 UNIT/ML SYR SQ SCH (06:06)
[2020-10-19] MEDS: SEVELAMER 800 MG TAB PO SCH ×3 (06:30→18:52)
--- NOTE | 2020-10-19 07:17 | XR ---
EXAMINATION TYPE: XR chest 1V portable DATE OF EXAM: 10/19/2020 COMPARISON: 10/18/2020 HISTORY: Assess lungs TECHNIQUE: Single frontal view of the chest is obtained. FINDINGS: Tracheostomy tube and right dialysis catheter are in unchanged positions. Extensive bilateral airspace disease is again seen with minimal improvement in the right lung base as the right hemidiaphragm is now partially visible. Cardiac enlargement is unchanged. IMPRESSION: Extensive bilateral airspace disease is again seen with minimal improvement in the right lung base as the right hemidiaphragm is now partially visible.
[2020-10-19] MEDS: ALBUTEROL HFA INHALER INHALATION SCH ×4 (07:41→20:28)
[2020-10-19] MEDS: SODIUM BICARBONATE TAB 650 MG TAB PO SCH ×3 (09:12→20:29)
[2020-10-19] MEDS: DEXAMETHASONE SOD PHOSPHATE 4 MG/ML 1 ML VIAL IV SCH (09:12)
[2020-10-19] MEDS: PANTOPRAZOLE 40 MG/10 ML VIAL IVP SCH (09:12)
[2020-10-19] MEDS: CHLORHEXIDINE GLUCONATE 15 ML CUP MUCOUS MEM SCH ×2 (09:13→20:29)
[2020-10-19] MEDS: CHOLECALCIFEROL 25 MCG (1000 IU) TABLET PO SCH (09:13)
[2020-10-19] MEDS: ASCORBIC ACID 500 MG TAB PO SCH ×2 (09:13→20:29)
[2020-10-19] MEDS: ENOXAPARIN 30 MG/0.3 ML SYRINGE SQ SCH (09:13)
--- NOTE | 2020-10-19 09:42 | P.PN ---
Subjective Progress Note Date: 10/19/20 10/19/2020, I'm seeing the patient for a follow-up. He remains ventilator dependent with ARDS post COVID-19 infection. This morning, we have managed to keep the patient on a combination of Precedex at 0.7 mcg/kg/h and fentanyl at micrograms per kilogram per hour. The patient seems to be quite interested a mechanical ventilator. She is on a VAC plus mode. Her current rate is a 32 with a total volume of 300-60% with a PEEP of 12. Blood gases showing a pH of 7.32 with a pCO2 of 45 and pO2 of 82. Her current respiratory rate is around 36. Her peak airway pressure is 32. She was having some secretions around the tracheostomy tube stoma and based on some fever and purulent mucus and leukocyt osis, with a subsequent to this patient IV cefepime. She is currently receiving IV cefepime 12 hours and the cultures positive for gram-negative bacillus. She is still having a low-grade fever. The white cell count is up to 19.9. Chest x-ray remains unchanged with diffuse bilateral pulmonary infiltrates consistent with COVID-19 related pneumonia/ARDS. Note that the patient is currently off pr opofol. Adjustments were made on enteral feeding and currently she is on vital high AF running at 50 mL an hour which is goal and the patient is able to tolerate that without any major difficulties. The patient is undergoing daily dialysis and despite that she continues to have significant amount of third spacing. For instance, the dialysis was done yesterday with a total of 4 L fluids being ultrafiltrate. Neurologically, she opens her eyes, looks around, does not follow any commands, not sure if she is sleeping. She grimaces to painful stimulation. At times she gets quite restless and agitated. In terms of her COVID-19 and steroid treatment, I been gradually weaning off the steroids and the patient's will be dropped down to 2 mg patient remains on anticoagulation with Lovenox 30 mg subcu every 24 hours. Objective - Vital Signs Vital signs: Vital Signs Temp 101.7 F H 10/19/20 04:00 Pulse 134 H 10/19/20 08:00 Resp 24 10/19/20 08:00 BP 115/63 10/19/20 08:00 Pulse Ox 93 L 10/19/20 08:00 Intake & Output 10/18/20 10/19/20 10/19/20 18:59 06:59 18:59 Intake Total 017.485 1792.530 296.079 Output Total 4000 Balance -3407.220 1197.530 296.079 Weight 115.1 kg 112.4 kg Intake: IV 156 253 36 0.9 Normal Saline 36 33 6 Pressure Bag Sodium Chloride 0.9% 500 120 220 30 ml 500 ml @ 10 mls/hr IV .Q24H [facility] Rx#:[id number] Intake, IV Titration 436.780 559.530 170.079 Amount Dexmedetomidine/0.9% NaCl 99.274 166.182 (Pmx) 400 mcg In Empty Bag 1 bag @ Titrate IV . Q0M [facility] Rx#:[id number] Norepinephrine 8 mg In 87.506 63.427 Sodium Chloride 0.9% 250 ml @ 0.05 MCG/KG/MIN 11. 049 mls/hr IV .[id number] [facility] Rx#:[id number] fentaNYL (PF) 2,500 mcg 250 329.921 170.079 In Sodium Chloride 0.9% 200 ml @ Per Protocol IV .Q0M [facility] Rx#:[id number] Tube Feeding 250 60 Other 135 30 Output: Hemodialysis 4000 Other: Voiding Method Incontinent # Bowel Movements 1 ABP, PAP, CO, CI - Last Documented Arterial Blood Pressure 136/76 - Exam GENERAL EXAM: Sedated, 35-year-old female patient, on assist control mode of ventilation , sedated with a combination of Precedex and fentanyl. Opens up her eyes. Synchronous with the mechanical ventilator. No agitation. Does not follow any commands. HEAD: Normocephalic/atraumatic. EYES: Normal reaction of pupils, equal size. Conjunctiva pink, sclera white. NOSE: Clear with pink turbinates. THROAT: No erythema or exudates. NECK: Right internal jugular hemodialysis catheter placed. Tracheostomy tube secured in place. The patient has Bivona #8. No masses, no JVD, no thyroid enlargement, no adenopathy. CHEST: No chest wall deformity. Symmetrical expansion. LUNGS: Equal air entry with bilateral crackles CVS: Regular rate and rhythm, normal S1 and S2, no gallops, no murmurs, no rubs ABDOMEN: PEG tube exit site clean and dry. No hepatosplenomegaly, normal bowel sounds, no guarding or rigidity. EXTREMITIES: No clubbing, no edema, no cyanosis, 2+ pulses and upper and lower extremities. MUSCULOSKELETAL: Muscle strength and tone normal. SPINE: No scoliosis or deformity SKIN: No rashes CENTRAL NERVOUS SYSTEM: Patient is sedated with precedex , fentanyl - Labs CBC & Chem 7: 10/19/20 04:15 10/19/20 04:15 Labs: Abnormal Lab Results - Last 24 Hours (Table) 10/18/20 10/18/20 10/18/20 Range/Units 05:35 05:35 11:03 WBC 30.3 H (3.8-10.6) k/uL RBC (3.80-5.40) m/uL Hgb (11.4-16.0) gm/dL Hct (34.0-46.0) % RDW (11.5-15.5) % Neutrophils # (Manual) 22.40 H (1.3-7.7) k/uL Monocytes # (Manual) 3.94 H (0-1.0) k/uL Metamyelocytes # (Man) 0.91 H (0) k/uL Myelocytes # (Manual) 0.61 H (0) k/uL Nucleated RBCs 1 H (0-0) /100 WBC ABG pH (7.35-7.45) ABG pCO2 (35-45) mmHg ABG pO2 (83-108) mmHg ABG Total CO2 (19-24) mmol/L ABG O2 Saturation (94-97) % Chloride (98-107) mmol/L Carbon Dioxide (22-30) mmol/L BUN (7-17) mg/dL Creatinine (0.52-1.04) mg/dL Glucose (74-99) mg/dL POC Glucose (mg/dL) 156 H (75-99) mg/dL Procalcitonin 3.30 H (0.02-0.09) ng/mL 10/18/20 10/18/20 10/18/20 Range/Units 11:53 12:38 17:48 WBC (3.8-10.6) k/uL RBC (3.80-5.40) m/uL Hgb (11.4-16.0) gm/dL Hct (34.0-46.0) % RDW (11.5-15.5) % Neutrophils # (Manual) (1.3-7.7) k/uL Monocytes # (Manual) (0-1.0) k/uL Metamyelocytes # (Man) (0) k/uL Myelocytes # (Manual) (0) k/uL Nucleated RBCs (0-0) /100 WBC ABG pH 7.27 L (7.35-7.45) ABG pCO2 51 H (35-45) mmHg ABG pO2 111 H (83-108) mmHg ABG Total CO2 25 H (19-24) mmol/L ABG O2 Saturation 97.6 H (94-97) % Chloride (98-107) mmol/L Carbon Dioxide (22-30) mmol/L BUN (7-17) mg/dL Creatinine (0.52-1.04) mg/dL Glucose (74-99) mg/dL POC Glucose (mg/dL) 164 H 216 H (75-99) mg/dL Procalcitonin (0.02-0.09) ng/mL 10/19/20 10/19/20 10/19/20 Range/Units 00:30 04:15 04:15 WBC 19.9 H (3.8-10.6) k/uL RBC 2.47 L (3.80-5.40) m/uL Hgb 7.2 L (11.4-16.0) gm/dL Hct 22.3 L (34.0-46.0) % RDW 17.5 H (11.5-15.5) % Neutrophils # (Manual) 15.70 H (1.3-7.7) k/uL Monocytes # (Manual) 1.19 H (0-1.0) k/uL Metamyelocytes # (Man) 0.40 H (0) k/uL Myelocytes # (Manual) (0) k/uL Nucleated RBCs (0-0) /100 WBC ABG pH (7.35-7.45) ABG pCO2 (35-45) mmHg ABG pO2 (83-108) mmHg ABG Total CO2 (19-24) mmol/L ABG O2 Saturation (94-97) % Chloride 111 H (98-107) mmol/L Carbon Dioxide 19 L (22-30) mmol/L BUN 23 H (7-17) mg/dL Creatinine 1.38 H (0.52-1.04) mg/dL Glucose 180 H (74-99) mg/dL POC Glucose (mg/dL) 210 H (75-99) mg/dL Procalcitonin (0.02-0.09) ng/mL 10/19/20 10/19/20 Range/Units 04:17 05:59 WBC (3.8-10.6) k/uL RBC (3.80-5.40) m/uL Hgb (11.4-16.0) gm/dL Hct (34.0-46.0) % RDW (11.5-15.5) % Neutrophils # (Manual) (1.3-7.7) k/uL Monocytes # (Manual) (0-1.0) k/uL Metamyelocytes # (Man) (0) k/uL Myelocytes # (Manual) (0) k/uL Nucleated RBCs (0-0) /100 WBC ABG pH 7.32 L (7.35-7.45) ABG pCO2 (35-45) mmHg ABG pO2 82 L (83-108) mmHg ABG Total CO2 25 H (19-24) mmol/L ABG O2 Saturation (94-97) % Chloride (98-107) mmol/L Carbon Dioxide (22-30) mmol/L BUN (7-17) mg/dL Creatinine (0.52-1.04) mg/dL Glucose (74-99) mg/dL POC Glucose (mg/dL) 227 H (75-99) mg/dL Procalcitonin (0.02-0.09) ng/mL Microbiology - Last 24 Hours (Table) 10/17/20 10:55 Gram Stain - Preliminary Trachea Wound Culture - Preliminary Gram Neg Bacilli Assessment and Plan Plan: 1 Acute hypoxic respiratory failure secondary to COVID-19 pneumonia/ARDS, transferred to the intensive care unit on 09/11/2020 and intubated and placed on mechanical ventilator on 09/11/2020. Patient received 1 dose of Remdesivir on 09/11/2020, however based on her quick progression of her hypoxic respiratory failure she received Tocilizumab 800 mg on 09/11/2020. Tracheostomy and PEG tube placed on 09/18/2020. Patient remains in ARDS with diffuse infiltrates. We are still allowing permissive hypercapnia, low tidal volume ventilation. He is showing improvement in oxygenation. Chest x-ray findings are stable. There is concern of some ongoing infection as the patient has developed some mild leukocytosis and at the same time she is having some purulent material around the tracheostomy stoma. Cultures are showing gram-negative bacillus. The patient started on IV cefepime. White cell count is improving. Still having low-grade fever. 2 Acute kidney injury related to ATN, nephrology has been consulted, ultrasound of the kidneys showed no evidence of hydronephrosis. Patient was initiated on hemodialysis on 09/14/2020. Permacath placed 09/20/2020. Patient is undergoing daily dialysis. 3 diabetes mellitus, insulin-dependent and the patient is currently on insulin sliding scale coverage with NovoLog 4 obesity with a BMI is down to 50 5 lovenox prophylaxis dose of 30 mg subcu every 24 hours 6 hypotension, recovered and the patient is currently on no pressors 7 Corneal injury, punctate keratitis, left eye 8 Anemia of chronic disease, post 1 unit rbc on 10/04/2020 9 Generalized anxiety disorder. 10 hypertriglyceridemia, currently off propofol and will utilizing a combination of Precedex and fentanyl. 11 leukocytosis, improving 12 gram-negative bacillus in the respiratory secretions around the tracheostomy tube. Currently on IV cefepime. 13 encephalopathy/delerium , currently on Seroquel. Fentanyl and Precedex will be gradually weaned off. Plan monitor the mental status. Seroquel and continue with the Precedex and gradually wean off the fentanyl for now. No ventilator changes for now Keep the ventilator at a PEEP to 12 and increase the tidal volume to 300 FiO2 down to 60% Continue Precedex and fentanyl for sedation. Gradually wean off the fentanyl sputum Gram stain and culture and gram-negative bacillus and the patient is currently on IV cefepime Monitor white cell count HD today of ultrafiltration is on 4 L Check blood gases at noontime Continue Decadron 2 mg daily Lovenox 30 mg subcu every 24 hours Continue enteral feeding for nutritional support,vital HP adjustments were done on the dosing of enteral feeding and nutritional support Condition is critical. This is a critically care evaluation that was on a more than 30 minutes. Time with Patient: Greater than 30
[2020-10-19] MEDS: QUEtiapine 100 MG TAB PO SCH ×2 (09:58→20:43)
[2020-10-19] MEDS: SODIUM CHLORIDE 0.9% 500 ML 500 ML IV SCH (09:58)
--- NOTE | 2020-10-19 11:18 | P.PN ---
Subjective Progress Note Date: 10/19/20 CHIEF COMPLAINT: COVID-19 pneumonia HISTORY OF PRESENT ILLNESS: Patient is in the ICU for COVID-19 pneumonia and respiratory failure. She is status post tracheostomy and PEG tube placement with Dr. Hollis. Patient is tolerating tube feedings. Dietitian has adjusted the patient's tube feedings to 50 mL per hour since patient is off of the propofol. Patient remains on mechanical ventilation. She is getting hemodialysis currently. Tracheostomy culture growing gram-negative bacilli. She was started on antibiotics yesterday. She did have a temp of 101.7 this morning. She remains tachycardic. WBC has decreased from 30.3-19.9 Patient seen and examined with Dr. hollis PHYSICAL EXAM: VITAL SIGNS: Reviewed. GENERAL: Well-developed in no acute distress. HEENT: No sclera icterus. Extraocular movements grossly intact. Moist buccal mucosa. Head is atraumatic, normocephalic. Tracheostomy site with yellowish drainage ABDOMEN: Soft. Nondistended. Nontender. PEG tube site clean dry and intact NEUROLOGIC: Awake and opens eyes ASSESSMENT: 1. Acute hypoxic respiratory failure with prolonged mechanical ventilation due to COVID-19 pneumonia status post tracheostomy placement 2. Severe protein calorie malnutrition status post PEG tube placement PLAN: -Continue tube feedings -Continue supportive care -Continue ICU management -Continue trach care Physician [employer]/Fireman note has been reviewed by physician. Signing provider agrees with the documented findings, assessment, and plan of care. Objective - Vital Signs Vital signs: Vital Signs Temp 101.7 F H 10/19/20 04:00 Pulse 105 H 10/19/20 11:00 Resp 45 H 10/19/20 11:00 BP 111/67 10/19/20 11:00 Pulse Ox 93 L 10/19/20 11:00 Intake & Output 10/18/20 10/19/20 10/19/20 18:59 06:59 18:59 Intake Total 208.845 9624.530 448.751 Output Total 4000 Balance -3407.220 1197.530 448.751 Weight 115.1 kg 112.4 kg Intake: IV 156 253 62 0.9 Normal Saline 36 33 12 Pressure Bag Sodium Chloride 0.9% 500 120 220 50 ml 500 ml @ 10 mls/hr IV .Q24H [facility] Rx#:[id number] Intake, IV Titration 436.780 559.530 236.751 Amount Dexmedetomidine/0.9% NaCl 99.274 166.182 (Pmx) 400 mcg In Empty Bag 1 bag @ Titrate IV . Q0M [facility] Rx#:[id number] Norepinephrine 8 mg In 87.506 63.427 Sodium Chloride 0.9% 250 ml @ 0.05 MCG/KG/MIN 11. 049 mls/hr IV .[id number] [facility] Rx#:[id number] Norepinephrine 8 mg In 40.129 Sodium Chloride 0.9% 250 ml @ 0.05 MCG/KG/MIN 11. 136 mls/hr IV .[id number] [facility] Rx#:[id number] fentaNYL (PF) 2,500 mcg 250 329.921 196.622 In Sodium Chloride 0.9% 200 ml @ Per Protocol IV .Q0M [facility] Rx#:[id number] Tube Feeding 250 120 Other 135 30 Output: Hemodialysis 4000 Other: Voiding Method Incontinent # Bowel Movements 1 ABP, PAP, CO, CI - Last Documented Arterial Blood Pressure 136/76 - Labs CBC & Chem 7: 10/19/20 04:15 10/19/20 04:15 Labs: Abnormal Lab Results - Last 24 Hours (Table) 10/18/20 10/18/20 10/18/20 Range/Units 05:35 11:53 12:38 WBC (3.8-10.6) k/uL RBC (3.80-5.40) m/uL Hgb (11.4-16.0) gm/dL Hct (34.0-46.0) % RDW (11.5-15.5) % Neutrophils # (Manual) (1.3-7.7) k/uL Monocytes # (Manual) (0-1.0) k/uL Metamyelocytes # (Man) (0) k/uL ABG pH 7.27 L (7.35-7.45) ABG pCO2 51 H (35-45) mmHg ABG pO2 111 H (83-108) mmHg ABG Total CO2 25 H (19-24) mmol/L ABG O2 Saturation 97.6 H (94-97) % Chloride (98-107) mmol/L Carbon Dioxide (22-30) mmol/L BUN (7-17) mg/dL Creatinine (0.52-1.04) mg/dL Glucose (74-99) mg/dL POC Glucose (mg/dL) 164 H (75-99) mg/dL Procalcitonin 3.30 H (0.02-0.09) ng/mL 10/18/20 10/19/20 10/19/20 Range/Units 17:48 00:30 04:15 WBC 19.9 H (3.8-10.6) k/uL RBC 2.47 L (3.80-5.40) m/uL Hgb 7.2 L (11.4-16.0) gm/dL Hct 22.3 L (34.0-46.0) % RDW 17.5 H (11.5-15.5) % Neutrophils # (Manual) 15.70 H (1.3-7.7) k/uL Monocytes # (Manual) 1.19 H (0-1.0) k/uL Metamyelocytes # (Man) 0.40 H (0) k/uL ABG pH (7.35-7.45) ABG pCO2 (35-45) mmHg ABG pO2 (83-108) mmHg ABG Total CO2 (19-24) mmol/L ABG O2 Saturation (94-97) % Chloride (98-107) mmol/L Carbon Dioxide (22-30) mmol/L BUN (7-17) mg/dL Creatinine (0.52-1.04) mg/dL Glucose (74-99) mg/dL POC Glucose (mg/dL) 216 H 210 H (75-99) mg/dL Procalcitonin (0.02-0.09) ng/mL 10/19/20 10/19/20 10/19/20 Range/Units 04:15 04:17 05:59 WBC (3.8-10.6) k/uL RBC (3.80-5.40) m/uL Hgb (11.4-16.0) gm/dL Hct (34.0-46.0) % RDW (11.5-15.5) % Neutrophils # (Manual) (1.3-7.7) k/uL Monocytes # (Manual) (0-1.0) k/uL Metamyelocytes # (Man) (0) k/uL ABG pH 7.32 L (7.35-7.45) ABG pCO2 (35-45) mmHg ABG pO2 82 L (83-108) mmHg ABG Total CO2 25 H (19-24) mmol/L ABG O2 Saturation (94-97) % Chloride 111 H (98-107) mmol/L Carbon Dioxide 19 L (22-30) mmol/L BUN 23 H (7-17) mg/dL Creatinine 1.38 H (0.52-1.04) mg/dL Glucose 180 H (74-99) mg/dL POC Glucose (mg/dL) 227 H (75-99) mg/dL Procalcitonin (0.02-0.09) ng/mL Microbiology - Last 24 Hours (Table) 10/17/20 10:55 Gram Stain - Preliminary Trachea Wound Culture - Preliminary Gram Neg Bacilli
[2020-10-19 11:19] LABS: Glucose,Whole Blood 206 mg/dL (75-99)
--- NOTE | 2020-10-19 13:17 | PN ---
PROGRESS NOTE The patient is seen for followup for acute kidney injury. She currently remains on the vent. Patient is seen on hemodialysis, tolerating her treatment well. We are going for another 4 L of ultrafiltration today. PHYSICAL EXAMINATION: Blood pressure was 113/67, heart rate 112 per minute. Patient is awake, but does not follow commands consistently. Examination lower extremities shows edema 2+ bilaterally. Abdomen is soft, distended, nontender. The patient does not follow commands. LABS: Reviewed. Hemoglobin 7.2, sodium of 142, potassium 3.5, calcium is 9.8. ASSESSMENT: 1. Acute kidney injury, dialysis dependent, currently oliguric, ATN, being dialyzed daily, mostly for volume overload. 2. Acute hypoxic respiratory failure secondary to COVID pneumonia/ARDS. 3. Volume overload, currently improving. 4. Gram-negative bacillus in respiratory secretions around the tracheostomy tube, maintained on cefepime. PLAN: Continue daily dialysis treatments mostly for volume overload. MMODL / IJN: [id number] /
[2020-10-19] MEDS: CEFEPIME 1 GM in SODIUM CHLORIDE 0.9% 50 ML IVPB SCH (14:48)
--- NOTE | 2020-10-19 15:10 | P.PN ---
Subjective HISTORY OF PRESENT ILLNESS 35-year-old female patient of Dr. Arroyo with past medical history of type 2 diabetes comes in with acute shortness of breath associated with high light sugars. Patient on admission was found to have a fever of 101.5 pulse rate 125 respiratory rate 20. Blood pressure 132/106. On chest x-ray obtained in the ER suggestive of bilateral infiltrates concerning for call with pneumonia. COVID PCR was positive. On admissions patient had an ABG with a pH of 7.14 pCO2 of 20, pO2 of 59, bicarb of 7. Patient's blood sugar on admission was 424 on assessment today patient's blood work patient had a sodium 135 potassium 5.4 chloride 123 bicarb less than 5 and creatinine 0.73. D-dimer was elevated on admission patient 9 28 patient given 1 L of IV fluids followed by normal saline running at 200 mL/h. Patient was positive for acetone on admission. She will anion gap closed and was switched to D5NS. Insulin drip was continued during the night and was switched to patient's home medication this morning. One dose of remdesiver was ordered. Apparently around noon, A- team was called on the patient secondary to hypoxia patient's oxygen saturation dropped to the 70s and 80s on 100% nonrebreather. Patient was switched to BiPAP on 18/12 and is doing better o FiO2 of 80%. ABG was obtained and ph was 7. 14 pCO2 of 28 bicarb of 7 pO2 of 17. Patient noted to have uncompensated metabolic acidosis with compensated respiratory alkalosis. Stat dose of 1 amp bicarb was given and followed by sodium bicarbonate drip. Insulin drip restarted. Patient's initiated on dexamethasone 6 mg IV twice a day. Potassium phosphate ordered as phosphorus is low. Patient's repeat blood gases suggest a pH of 7.25, CO2 32 pO2 of 72 bicarb 14. I will not normal saline at 100 mL/h as patient's anion gap has increased. Patient given 1 dose of 2 mg of morphine with improvement in respiratory rate. One dose of Ativan 0.5 mg was given. Xanax 0.25 twice a day along with Ativan 0.5 IV every 6 hours ordered for the patient. Vitals were evaluated patient pulse 129 [id number]. She was moved to the ICU. Precedex drip was initiated. Lopressor was initiated at 25 twice a day. Metoprolol tartrate 5 mg IV every 6 hours. Systolic blood pressure more than 160. Started chest x-ray was obtained and suggest stable bilateral consolidation suggestive of COVID-19 pneumonia. 09/12 patient is seen in the ICU is currently mechanically ventilated and sedated on vent settings of respiratory rate 36, tidal volume 375 FiO2 80% PEEP of 18.. Vital signs reviewed patient had a temp of 100.4 pulse 150 respiratory rate 36 oxygen saturation 95% on 80% on fio2 .'s labs are reviewed which patient had a d-dimer 1.84 that is increased to 14.3. Arterial Blood gas suggest ph 7.35, CO2 40, po2 62, . Her BMP suggest a sodium 135 potassium 3.7 chloride 112 bicarb 21 creatinine 1.57 for calcitonin is 3.5 CRP is increased from 8.78.2 LDH is increased to 2614. Patient remains on Pneumovax, propofol drip. Lovenox increased to 50 subcu twice a day. Patient received 2 L of IV fluids. Continue IV fluids at 100 mL/h. Bicarb drip discontinued patient initiated on Zosyn 3.375 every 8 hours. Continue insulin drip at 4 units per hour. Patient is currently in prone positioning 09/13: Patient evaluated in the ICU remains on Ventilation continues to be sedated, in prone position. Vent settings are respiratory rate 36, tidal vital 375, FiO2 70% PEEP of 18. ABG shows pO2 of 82, PCO2 of 39, pH is 7.19. Latest labs show WBC 11.1, hemoglobin 13.2, d-dimer still pending, but yesterday was up to 14.3. Creatinine up to 3.4, BUN 24 sodium 137, potassium 4.0. Patient's urine output has been low, nephrology on consult. Bicarb drip increased to 100 miles an hour, receiving another liter of normal saline, she did have a ultrasound that showed unremarkable bilateral kidneys. Repeat chest x-ray showed bilateral lung infiltrates that are stable. Anion gap has closed, will start Lantus 10 units at at bedtime Novolog every 6 hours. 09/14: Patient is seen in the ICU, still currently mechanically ventilated and sedated. She continues in the prone position. Her oxygen quickly drops if she is not in prone. Patient's kidney function has worsened. Laboratory values show creatinine of 4.87, BUN 33, LDH 2191, C-reactive protein 2.7. ABG shows pH 7.32, pO2 of 60, pCO2 43. Patient is making almost no urine overnight. Nephrology is following patient continues on cefepime for urinary tract infection, culture is still pending. Vascular has been consulted for placement of temporary hemodialysis catheter for plans for dialysis. 09/15: Patient evaluated in the ICU, continues to be mechanically ventilated and sedated on assist control ventilation rate of 36, tidal volume 375, FiO2 100% and PEEP of 18. ABG today shows pO2 58, pCO2 of 45, and pH 7.35. She continues on tube feedings. Yesterday patient underwent ultrasound-guided right internal jugular non-tunneled hemodialysis catheter placement. Patient underwent hemodialysis treatment last night and plans have another hemodialysis treatment today. She continues to make almost no urine. She continues on cefepime for antibiotic coverage, and continues on Decadron and Lovenox. 09/16: Patient seen on follow-up remains in the ICU mechanically ventilated and sedated. She continues on assist control rate of 36, tidal volume 375, FiO2 100% and PEEP of 20. PEEP had to be increased due to patient had to be in supine position for dialysis, will go back to prone position once dialysis is complete. ABG shows pH 7.32, pCO2 49, PaO2 61. Laboratory values showed WBC 11.2, hemoglobin 11, sodium 134, creatinine 4.44, BUN 38. Urine culture shows no growth, blood cultures show no growth to date. Repeat chest x-ray shows bilateral pleural effusions, correlate for ARDS, pulmonary edema, diffuse pneumonia, findings are stable from last exam. Patient does not require any pressors, blood pressure 133/57, heart rate 78. /16: Patient was evaluated in the ICU today for follow-up. She continues to be intubated and on mechanical ventilation. Current vent settings are tidal volume 375, FiO2 100% and PEEP of 20. ABG shows pH 7.37, pCO2 40, pO2 102. She continues with intermittent prone positioning. Patient continues to have almost no urine output, maintained on dialysis. Patient received dialysis yesterday without complication. Laboratory values revealed WBC 10.3, hemoglobin 10.4, sodium 132, potassium 3.1, BUN 33, creatinine 4.29, LDH 1913, C-reactive protein 1.3. Urine and sputum cultures are negative, blood cultures show no growth to date. Consult placed to dietary to start TPN[ ] 09/18: She remains in the intensive care unit intubated and on mechanical ventilation with tidal volume 375, FiO2 60 and PEEP of 20. Patient is being prone to daily at approximately 16 hours per day. Pulmonary medicine has added in Dr. Zhang to do PEG tube and trach today. Patient is not on vasopressors. Repeat blood work reveals WBC 12.6, hemoglobin 9.8, platelet count 212. Sodium 133, potassium 3.2, chloride 102, CO2 21, BUN 35 and creatinine 4.12. Blood sugar 126. Patient underwent hemodialysis yesterday with removal of 2 L and is scheduled again today with goal of 2-3 L and is scheduled again tomorrow. 09/19: She is scheduled for hemodialysis today and is off fentanyl temporarily. Patient is status post trach and PEG tube yesterday. And she remains on mechanical ventilation. Pulse ox 93-95%. She has been afebrile, heart rate 64, respiratory rate 36, blood pressure 115/50. Fentanyl is off to improve blood pressure for hemodialysis which is scheduled for today. Contacted vascular surgery about permanent hemodialysis catheter. Repeat blood work reveals WBC 14.3, hemoglobin 9.6, platelet count 200. D-dimer 6.48. LDH 1686. C-reactive protein 1.1. BUN 34 creatinine 3.81. Sodium 130, potassium 3.5, chloride 101, CO2 18. Blood sugars running between 101 198. Plan is to wean off Pneumovax today. Patient remains on insulin drip. Repeat chest x-ray reveals bilateral multifocal confluent opacities consistent with COVID-19. Some improved aeration periphery of the left lung and worsening opacities throughout the right lung. 09/20: She remains in the intensive care unit on mechanical ventilation. She has been afebrile, heart rate 65, respiratory rate 37, blood pressure 121/70, pulse ox 91-99%. Repeat blood work reveals WBC 14.5, hemoglobin 9.1, platelet count 216. D-dimer 6.13. Sodium 133, potassium 3.1, chloride 102, CO2 18, BUN 35 and creatinine 4.27. Blood sugars running between 128 and 143. LDH 1717. C- reactive protein 1.7. Patient remains on insulin drip which will be transitioned to NovoLog scale every 6 hours. Patient is scheduled for permanent hemodialysis catheter placement today with vascular surgery. Repeat chest x-ray reveals stable diffuse bilateral interstitial and airspace disease. Possible small right effusion. His work is following for transfer to [facility]. Do not anticipate discharge until next week. 09/21: Patient is undergoing hemodialysis. She remains on mechanical ventilation with tidal volume 375, FiO2 down to 45 and PEEP was decreased to 15. Patient is continued on propofol, fentanyl drips. She is on tube feedings at goal. Patient was taken off insulin drip yesterday and on scale only but blood sugars are running in the 200s, Levemir scheduled at bedtime will be added. Other blood work reveals WBC 13.3, hemoglobin 8.7, platelet count 192. Sodium 137, potassium 3.6, chloride 107, CO2 18, BUN 34 and creatinine 4.21. Repeat chest x-ray is stable. 09/22: She remains in the intensive care on mechanical ventilation with tidal volume 375, FiO2 of 50 and PEEP of 10. Pulse ox is running 96%. She is afebr ile, heart rate in the 50s, respiratory rate 36, blood pressure 100/64. Repeat blood work reveals WBC 16.5, hemoglobin 8.9, platelet count 213. Sodium 134, potassium 3.7, chloride 103, CO2 21, BUN 34 and creatinine 3.89. Blood sugars running in the 200s to 324. Levemir increased to 16 units at bedtime and continue NovoLog scale every 6 hours. Patient is on tube feedings at goal. She has a Haley catheter in with a scant amount of dark/brown urine. Fecal management system is in place. Repeat chest x-ray reveals diffuse bilateral airspace infiltrates persist unchanged. Patient is scheduled for hemodialysis tomorrow morning on Friday. 09/23: Patient remains on mechanical ventilation with tidal volume 3.75, FiO2 50 and PEEP of 10. campus monitor sinus rhythm. She has no urine output. Fecal management system is in place. She is undergoing dialysis at this time with plan for removal of 2-1/2 L. She has been afebrile, heart rate in the 50s, respiratory rate 36, blood pressure 108/76 and pulse ox 89%. WBC 13.6, hemoglobin 9.1, platelet count 194. Sodium 136, potassium 3.0 and was replaced, chloride 106, CO2 21, BUN 49 creatinine 5.31. Blood sugars are running between 182 and this morning 194. Patient was still in the 200s and 300s. Levemir last evening was increased to 16 units. Patient remains on propofol and fentanyl drips. Lovenox was increased to 60 mg twice daily. 09/24: PEEP was increased today to 20, tidal volume is at 375 and FiO2 of 50%. Patient has been afebrile. She has been started on levo fed. Repeat chest x- ray reveals bilateral multifocal confluent opacities consistent with Covid 19 or ARDS redemonstrated. Nephrology will plan dialysis for tomorrow for 3 L. Patient remains on propofol fentanyl and Nimbex. WBC 12.5, hemoglobin 9.8, plat elet count 161. D-dimer 13.3. Sodium 132, potassium 3.4, chloride 102, CO2 20, BUN 48 and creatinine 4.67. Blood sugars extremely elevated to 96-409. LDH 2217. 09/25: Patient remains in the intensive care unit on mechanical ventilation with tidal volume 375, FiO2 50 and PEEP of 20. Patient is afebrile, heart rate 61, respiratory rate 36, blood pressure 102/56, pulse ox 97%. Repeat blood work reveals WBC 9.3, hemoglobin 8.5 and platelet count 171. Sodium 130, potassium 3.7, chloride 100, CO2 20, BUN 61 creatinine 5.65. Blood sugars have been elevated up to 455. Levemir increased to 20 units twice daily, NovoLog 5 units every 6 hours and continue NovoLog scale. Patient is scheduled for hemodialysis today. Repeat chest x-ray reveals bilateral multifocal and confluent opacities. Decadron and Lovenox dosing change by pulmonary. Patient is off norepinephrine. 09/26: Patient remains in the intensive care unit on mechanical ventilation with tidal volume 375, FiO2 50 and PEEP of 15. She has been afebrile, heart rate 91, blood pressure 114/68, pulse ox 99%. campus monitor sinus rhythm. 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 Sodium 134, potassium 3.6, chloride 102, CO2 22, BUN 41 creatinine 4.21. Patient has improved blood sugars this morning running 150s and 160s. Diabetic medications were adjusted yesterday. Patient is awake and alert and interacting. Yesterday, patient had PICC line inserted by interventional radiology. Repeat chest x-ray reveals diffuse airspace infiltrates in both lung ann appear to progress slightly in the interval. 09/27: Patient remains in intensive care unit on mechanical ventilation with improvement of settings with tidal volume 375, FiO2 decreased to 40 and PEEP decreased to 10. Patient is on hemodialysis every other day and plan to remove 3 L today. Patient is more awake and alert. She is slow to respond but is able to follow simple commands. Blood sugars are running between 84 and 123. Repeat blood work reveals WBC 7.1, hemoglobin 8.1, platelets 152. Sodium 135, potassium 3.6, chloride 103, CO2 21, BUN 53 and creatinine 5.88. Repeat chest x-ray revealed cardiomegaly and pulmonary edema. Patient is on tube feedings:. Patient is not require vasopressors and is off sedation. Fecal management system remains in place for brown liquid stool. C. difficile was negative. 09/28: Patient remains on mechanical ventilation with tidal volume 375, FiO2 increased to 80 and PEEP increased to 18. Patient had a rough night was very anxious, no pain. Xanax 0.25 mg 3 times daily was added. There is concern for pulmonary embolism for which patient was started on heparin drip, she is unable to undergo CAT scan. Venous Doppler bilateral lower extremities was nondiagnostic due to extensive edema in obese patient but minimal imaging of the popliteal veins does show flow. Repeat echocardiogram has been ordered. Cefepime has also been ordered at 1 g IV piggyback every 24 hours as well as vancomycin, pharmacy dosing. Patient is back on fentanyl drip, propofol drip and norepinephrine. Blood sugars are elevated and insulin Levemir will be increased to 25 mg twice daily. Ferrlecit infusion has been ordered by nephrology for 4 days. Patient is undergoing hemodialysis today.temperature max 100.2, heart rate 134, respiratory rate 34, blood pressure 120/65, pulse ox 94%. campus monitor is sinus tachycardia. Repeat blood work reveals WBC 16.9, hemoglobin 9.7, platelet count 216. D-dimer 8.81. Sodium 134, potassium 3.8, chloride 99, CO2 25, BUN 43 and creatinine 5.36. Blood sugars in the 200s. AST 40. 09/29 Patient had declined more last 48 hours require more sedation, patient is doing hemodialysis, respiratory failure is quite bit worse this time. Patient was inquired the pain is well back on fentanyl drip. Her vent set up with PEEP is limited but higher. No new finding on culture and her chest x-ray continues shows diffuse infiltrate persistent although there is a moderate interval improvement. 09/30 patient's was seen and evaluated. PEEP was reduced to 11 as patient is maintaining good saturation at the current vent settings. 10/01 patient was seen at bedside. She is currently on assist control rate of 28 white tidal volume 350 FiO2 50% and PEEP of 10 which has been reduced by pulmonary as patient name cleaning her oxygen saturation. Arm blood gas was obtained with a pH of 7.35 pCO2 37 pO2 of 63. She remains hemodynamically stable with no need for pressors. Labs were reviewed patient's BUN is 29 creatinine 3.93 glucose 122 albumin 2.2 sodium 131 chloride 19 hemoglobin is downtrending with a Hb of 7.3 no leukocytosis 7.1. Patient's urine output is minimal at this time. Her rate has increased to 129 and is currently on positive fluid balance even with dialysis. Last dialysis was done yesterday. Continue enteral feeding currently at goal. Antibiotic has been discontinued and continues to remain on DEXA methicillin 4 mg IV daily. 10/02 patient continues to be on trach support with mechanical ventilation. Patient was evaluated by building services supervisor and was switched to VC control as patient was noted to be double stacking on and off throughout the night. Respiratory rate continue to 28 tidal volume increased to 400 with a PEEP for Dr. Downey. Patient is maintaining oxygen saturation 91% on the current setting. According to the nurse bedside patient saturation drops significantly or she is moved or her sedation is dropped. Patient is currently on propofol drip, fentanyl drip. She did underwent dialysis today and was able to maintain her low pressure without the need of pressors. Labs reviewed today suggest a WBC of 6.7 hemo globin of 7.0 and d-dimer 3.9 bicarb 17 BUN 38 creatinine 4.8. LDH is 964. Sodium 1:30 likely secondary to volume overload. Urine sodium and urine osmolality ordered. Patient's glucose this morning is 146. Continue to remain on enteral feeding. Urine output is reduced. Fall catheter will be placed today. Continue to remain on dialysis. 10/03: Patient remains on mechanical ventilation and is back on propofol and fentanyl drips. Patient is currently on VC control with tidal volume 400, FiO2 55 and PEEP of 12. Patient still is not making any urine and is dialysis dependent with next treatment planned for tomorrow with removal of 3-3-1/2 L. PEG tube feedings are at goal. Fecal management system remains in place. At the time of evaluation, patient is off levophed. Repeat chest x-ray reveals stable diffuse bilateral airspace disease correlate for ARDS, pulmonary edema or diffuse pneumonia. Temperature max last evening was 101. Temperature currently 99, heart rate 106, respiratory rate 32, blood pressure 101/50, pulse ox 86%. Repeat blood work reveals WBC 6, hemoglobin 7.4, platelet count 160. D-dimer 4.05. Sodium 133, potassium 3.5, chloride 100, CO2 23, BUN 31 creatinine 3.8. Blood sugars are running between 100 and 170. Ferritin 1514. Liver function test normal. LDH 1016, C-reactive protein 13.6. Prognosis remains guarded. 2: Patient remains intubated on mechanical ventilation with tidal volume 400, FiO2 65, PEEP of 14. Patient continues to run fevers and repeat blood culture and urine and urine culture ordered for today. Haley catheter has been removed this patient has no significant urine output at about 20 mL per shift. BladderScan is monitored for greater than 300 and the patient is straight cathed. Hemoglobin is 6.8 and she has been ordered 41 unit of packed RBCs today. She is currently on propofol and fentanyl drips. She is scheduled for hemodialysis today. WBC 4.5, hemoglobin 6.8, platelet count 151. D-dimer 3.28. Sodium 132, potassium 4.1, chloride 100, CO2 22, BUN 37 creatinine 4.74. Blood sugars running between 97 and 110. Ferritin 1801. LDH 859. C-reactive protein 14.4. Chest x-ray reveals correlate for pneumonia, edema, ARDS. Prognosis remains guarded. 10/05: Patient remains in intensive care unit currently on mechanical ventilation with tidal volume 400, FiO2 was increased to 100 and PEEP is at 14. She continues to run fevers which have worsened with temperature max 103.1. She has been tachycardic in the 130s, blood pressure is marginal but not on vasopre ssors. Pulse ox currently 92%. Repeat blood work reveals WBC 5.5, hemoglobin 7.6, platelet count 190. D-dimer 2.7, ferritin 1770, LDH 932, C-reactive protein 21.4. Blood sugars are running between 100 1669. Electrolytes are normal. BUN 27 and creatinine 3.79. Pancultures were done yesterday including a straight cath for urine culture, sputum culture and blood culture. Arterial line was removed as well as midline. She is currently on propofol, fentanyl and started on Nimbex today. 10/06: Patient remains in the intensive care unit. Today patient in prone positio n and remains on mechanical ventilation with tidal volume 350, FiO2 65 and PEEP of 14. Her last documented fever was yesterday at 2 PM. Heart rate is in the 120s, respiratory rate 32, pulse ox 88-92%. CBC is unremarkable. Electrolytes are normal. BUN 30 creatinine 2.93. Blood sugars are running between 135 and 164. Cultures from October 04: Blood culture no growth, sputum culture finalized, urine culture finalized. Catheter tip culture is in process. Repeat chest x- ray shows bilateral interstitial infiltrates. Patient is on tube feedings of Nepro at goal of 30 ML's per hour. Patient underwent dialysis yesterday and is scheduled for repeat dialysis today. 10/07: Patient maintains in the intensive care unit intubated and on mechanical ventilation. She is receiving hemodialysis this morning has been every day. Plan is to remove 2-1/2 L today. Vent settings have changed today with tidal volume 350, FiO2 was increased to 100% and PEEP remains at 14. She has been continued on Nimbex, fentanyl, norepinephrine and propofol. Plan is to prone position patient following dialysis. Repeat chest x-ray reveals worsening interstitial infiltrates. BUN is 26 and creatinine 2.59. LDH 955, C-reactive protein 22.1. Prognosis remains poor. 10/08: Patient remains in intensive care unit intubated and on mechanical ventilation with tidal volume 350, FiO2 60, PEEP of 14. She is pronating today. She is scheduled for hemodialysis on a daily basis. She has been afebrile, heart rate 112, respiratory rate 36, blood pressure 161/88, pulse ox 93%. Repeat blood work reveals WBC 9.9, hemoglobin 9.1, platelet count 320. Sodium 133, potassium 5.3, chloride 100, CO2 20, BUN 29 creatinine 2.44. Blood sugar running between 102 and 139. LDH 1026, C-reactive protein 19.7. 10/09: Patient is undergoing dialysis this morning. She continues to be intubated and on mechanical ventilation with tidal volume 350, 270 and PEEP of 14. Patient is also on propofol, Nimbex, norepinephrine and fentanyl drips. Repeat chest x-ray reveals persistent bilateral multifocal and confluent opacities consistent with Covid 19. She is afebrile, heart rate 116, respiratory rate 36, blood pressure 120/65, pulse ox 91%. Repeat blood work reveals WBC 5.4, hemoglobin 9.2, platelet count 216. D-dimer 2.67, ferritin 2568, LDH 794, C- reactive protein 13.9. Blood sugars have been running 90-104. Creatinine 1.64. She is on daily dialysis treatment. 10/10: She remains in the intensive care unit. She is now out of isolation as a repeat Covid test came back negative. She remains on mechanical ventilation with tidal volume 350, FiO2 70 and PEEP of 14. Patient is also on Nimbex, propofol, norepinephrine, fentanyl drips. She is on PEG tube feedings at goal and tolerating well. Repeat blood work reveals WBC 7.8, hemoglobin 7.5, platelet count 267. Sodium 139, potassium 3.9, chloride 109, CO2 20, BUN 20 creatinine 1.29. Blood sugars are running between 76 and 102. Scheduled NovoLog decreased to 3 units. Repeat chest x-ray reveals moderate cardiomegaly and continued pulmonary edema. Slight interval improvement. Patient is continued on daily hemodialysis. 10/11: Patient remains in intensive care unit on mechanical ventilation with tidal volume 325, FiO2 70, PEEP 14. She is currently being prone. She underwent he modialysis this morning with removal of 4 L of fluid with plan to continue daily treatment. She is currently on Nimbex, fentanyl and propofol. No vasopressor at this time. Fecal management system remains in place. She is on tube feedings currently at hold due to prone positioning. Patient has been afebrile, heart rate 116, respiratory rate 36, blood pressure 100/58, pulse ox 93-96%. Repeat blood work reveals WBC 9.3, hemoglobin 8.1, platelet count 276. Sodium 136, potassium 4.3, chloride 103, CO2 20, BUN 20 creatinine 1.14. Blood sugars running between 133 and 202. 10/12: Patient remains in the intensive care unit. She is undergoing hemodialysis this morning. She's been afebrile, heart rate in the 120s, respiratory rate 32, blood pressure 102/65. She is not on vasopressors. She is continued on Nimbex, fentanyl and propofol. Vent settings are currently tidal volume 325, FiO2 70, PEEP 14. Total platelet count 273. Sodium 133, potassium 4.7, chloride 100, CO2 19, BUN 21 creatinine 0.91. Blood sugars running between 121 and 143. 10/13: Patient remain in the ICU she is on hemodialysis daily, she is still on the vent with a PEEP of 14 and FiO2 of 70. Her oxygenation is marginal pulse rate still high. Patient had scratched cornea was seen in ophthalmology decided to keep doing eyedrops along with eye patch at this point. Prognosis still very bad this point. 10/14: She remains on mechanical ventilation with tidal volume 325, FiO2 70% and PEEP of 14. She did require label fed last evening for about 6 hours. She did not tolerate pronating yesterday. She is undergoing dialysis this morning with plan for removal of 4 L. Blood sugars have been low and IV fluids changed to D10 until blood sugars have recovered. Levemir and scheduled NovoLog discontinued. Patient is on tube feedings at goal there's been no change in this. 10/15 patient remains on mechanical ventilation in the intensive care unit. FiO2 still at 70%, PEEP of 18. Blood sugars have improved since medications were adjusted. White blood cells 33.9, hemoglobin 8.5, sodium 135, BUN 19, creatin ine 0.96. Patient to receive dialysis again today. Patient did run a low-grade fever throughout the night and pro calcitonin level is ordered. Chest x-ray showed continued diffuse bilateral airspace disease. Patient remains on tube feedings at goal. 10/16: Patient remains on mechanical ventilation with tidal volume 300, FiO2 70, PEEP of 15. Fecal management system is out. She is currently on low dose of norepinephrine. She is also on fentanyl drip, propofol drip, rocuronium drip. Heart rate is running in the 130s, sinus rhythm, blood pressure 121/63, pulse ox 95%. Patient is been afebrile. Repeat blood work reveals WBC 18.9, hemoglobin 7.5, platelet count 291. Sodium 135, potassium 4.2, chloride 101, CO2 19, BUN 25 and creatinine 1.36. Blood sugars are running between 143 and 199. Patient is on scale insulin only. Repeat chest x-ray reveals persistent bilateral multifocal and completed opacities consistent with Covid 19. 10/17: Patient remains on mechanical ventilation with tidal volume 300, FiO2 50, PEEP of 14. She is currently receiving hemodialysis. The patient is having yellow-colored drainage from the trach site. This is going to be culture today. Repeat blood work reveals WBC of 24, hemoglobin 7.3 and platelet count 310. Sodium 136, potassium 4.1, chloride 101, CO2 19, BUN 24 creatinine 1.43. Blood sugar 139. Capillary blood glucose running 147 and 189. Repeat chest x-ray is unchanged. Patient had increased respiratory rate 40s and 50s with oxygen saturation of 87 and now was increased and Seroquel added this morning. Prognosis remains guarded. 10/18: Patient remains on mechanical ventilation with tidal volume 300, FiO2 60, PEEP has been decreased to 12. Patient will need a PEEP of 8 in order to transfer to long-term care. She is currently on fentanyl drip and Precedex drip. Patient is tracking when her name is stated. She seems to be slightly improved today. Patient has been afebrile, heart rate 106, respiratory rate 32, blood pressure 110/61, pulse ox 98%. Repeat blood work reveals WBC 30.3, hemoglobin 7.2, platelet count 350. Sodium 139, potassium 4.2, chloride 103, CO2 20, BUN 23 creatinine 1.79. Blood sugars are increasing running up 299. Patient will be placed on Levemir. Secretions from tracheotomy sent for culture and in process. She is currently undergoing hemodialysis. 10/18, patient still is in the vent with tracheostomy, PEEP of 12, left radial arterial line line was performed today. Patient has Acinetobacter growing on sputum cultures, still with leukocytosis however it's improving, IV cefepime was started today, hemodialysis performed today, and repeat again in the morning per Dr. Evans's recommendation, 1-1.5 L ultrafiltration creatinine 1.38, wbc count 19.9 hemoglobin 7.2 has hyperglycemia now without hypoglycemia, increase Levemir to 8 units REVIEW OF SYSTEMS Unable to obtain due to mechanical ventilation. Objective - Vital Signs Vital signs: Vital Signs Temp 99.4 F 10/19/20 12:34 Pulse 121 H 10/19/20 12:34 Resp 41 H 10/19/20 12:34 BP 114/68 10/19/20 12:34 Pulse Ox 94 L 10/19/20 12:00 Intake & Output 10/18/20 10/19/20 10/19/20 18:59 06:59 18:59 Intake Total 771.239 6176.530 634.862 Output Total 4000 4000 Balance -3407.220 1197.530 -3365.138 Weight 115.1 kg 112.4 kg Intake: IV 156 253 88 0.9 Normal Saline 36 33 18 Pressure Bag Sodium Chloride 0.9% 500 120 220 70 ml 500 ml @ 10 mls/hr IV .Q24H [facility] Rx#:[id number] Intake, IV Titration 436.780 559.530 296.862 Amount Dexmedetomidine/0.9% NaCl 99.274 166.182 (Pmx) 400 mcg In Empty Bag 1 bag @ Titrate IV . Q0M [facility] Rx#:[id number] Norepinephrine 8 mg In 87.506 63.427 Sodium Chloride 0.9% 250 ml @ 0.05 MCG/KG/MIN 11. 049 mls/hr IV .[id number] [facility] Rx#:[id number] Norepinephrine 8 mg In 40.129 Sodium Chloride 0.9% 250 ml @ 0.05 MCG/KG/MIN 11. 136 mls/hr IV .[id number] [facility] Rx#:[id number] fentaNYL (PF) 2,500 mcg 250 329.921 256.733 In Sodium Chloride 0.9% 200 ml @ Per Protocol IV .Q0M [facility] Rx#:[id number] Tube Feeding 250 190 Other 135 60 Output: Hemodialysis 4000 4000 Other: Voiding Method Incontinent # Bowel Movements 1 ABP, PAP, CO, CI - Last Documented Arterial Blood Pressure 136/76 - Constitutional Constitutional Comment(s): awake. not conversing not in distress General appearance: Present: no acute distress - EENT Eyes: Present: anicteric sclerae, EOMI, PERRLA - Neck Neck: Present: normal ROM - Respiratory Respiratory: bilateral: diminished, rhonchi - Cardiovascular Rhythm: regular Heart sounds: normal: S1, S2 Abnormal Heart Sounds: Absent: systolic murmur, diastolic murmur, rub, S3 Gallop, S4 Gallop, click, other - Gastrointestinal General gastrointestinal: Present: normal bowel sounds, soft - Integumentary Integumentary: Present: decreased turgor, normal - Labs CBC & Chem 7: 10/19/20 04:15 10/19/20 04:15 Labs: Abnormal Lab Results - Last 24 Hours (Table) 10/18/20 10/18/2021 Range/Units 05:35 17:48 00:30 WBC (3.8-10.6) k/uL RBC (3.80-5.40) m/uL Hgb (11.4-16.0) gm/dL Hct (34.0-46.0) % RDW (11.5-15.5) % Neutrophils # (Manual) (1.3-7.7) k/uL Monocytes # (Manual) (0-1.0) k/uL Metamyelocytes # (Man) (0) k/uL ABG pH (7.35-7.45) ABG pO2 (83-108) mmHg ABG Total CO2 (19-24) mmol/L Chloride (98-107) mmol/L Carbon Dioxide (22-30) mmol/L BUN (7-17) mg/dL Creatinine (0.52-1.04) mg/dL Glucose (74-99) mg/dL POC Glucose (mg/dL) 216 H 210 H (75-99) mg/dL Procalcitonin 3.30 H (0.02-0.09) ng/mL 10/19/20 10/19/20 10/19/20 Range/Units 04:15 04:15 04:17 WBC 19.9 H (3.8-10.6) k/uL RBC 2.47 L (3.80-5.40) m/uL Hgb 7.2 L (11.4-16.0) gm/dL Hct 22.3 L (34.0-46.0) % RDW 17.5 H (11.5-15.5) % Neutrophils # (Manual) 15.70 H (1.3-7.7) k/uL Monocytes # (Manual) 1.19 H (0-1.0) k/uL Metamyelocytes # (Man) 0.40 H (0) k/uL ABG pH 7.32 L (7.35-7.45) ABG pO2 82 L (83-108) mmHg ABG Total CO2 25 H (19-24) mmol/L Chloride 111 H (98-107) mmol/L Carbon Dioxide 19 L (22-30) mmol/L BUN 23 H (7-17) mg/dL Creatinine 1.38 H (0.52-1.04) mg/dL Glucose 180 H (74-99) mg/dL POC Glucose (mg/dL) (75-99) mg/dL Procalcitonin (0.02-0.09) ng/mL 10/19/20 10/19/20 Range/Units 05:59 11:17 WBC (3.8-10.6) k/uL RBC (3.80-5.40) m/uL Hgb (11.4-16.0) gm/dL Hct (34.0-46.0) % RDW (11.5-15.5) % Neutrophils # (Manual) (1.3-7.7) k/uL Monocytes # (Manual) (0-1.0) k/uL Metamyelocytes # (Man) (0) k/uL ABG pH (7.35-7.45) ABG pO2 (83-108) mmHg ABG Total CO2 (19-24) mmol/L Chloride (98-107) mmol/L Carbon Dioxide (22-30) mmol/L BUN (7-17) mg/dL Creatinine (0.52-1.04) mg/dL Glucose (74-99) mg/dL POC Glucose (mg/dL) 227 H 206 H (75-99) mg/dL Procalcitonin (0.02-0.09) ng/mL Microbiology - Last 24 Hours (Table) 10/17/20 10:55 Gram Stain - Final Trachea Wound Culture - Final Acinetobacter ivonne/haemol Assessment and Plan Plan: ASSESSMENT AND PLAN 1. Acute hypoxic respiratory failure secondary to Covid 19 pneumonia and possible bacterial pneumonia. Patient was intubated on September 11. She is status post dose of Remdesivir and 1 dose of Tocilizumab. Continue Ventolin inhaler 4 times daily, Symbicort twice daily, Decadron 2 mg IV daily, Lovenox 30 mg subcu daily, supplements. Status post PEG tube and trach 09/18/20. Isolation precautions removed. Prone positioning held due to intolerance. 2. Acute diabetic ketoacidosis secondary to Covid 19 pneumonia, uncontrolled with hyperglycemia. Levemir 6 units daily resumed and continue NovoLog scale. 3. Metabolic encephalopathy secondary to Covid 19 and DKA. 4. Sepsis and septic shock secondary to Covid 19 pneumonia with multiorgan failure. Continue as in #1. Trach drainage culture to be obtained. 5. Acute metabolic acidosis secondary to acute DKA, Covid 19 and acute kidney injury. Sodium bicarb 650 mg 3 times daily, Renvela 1600 mg 3 times daily.. 6. Diabetes mellitus type 2 uncontrolled with A1c 13.6. Continue as above. Increase to 8 units Lantus, with scale 7. Hypophosphatemia status post replacement. On Renvela 8. Hyperkalemia secondary to DKA, resolved. 9. Sinus tachycardia secondary to sepsis, volume deficiency. 10. Acute kidney injury secondary to ATN secondary to Covid 19 and DKA. C ontinue daily hemodialysis. Permanent dialysis catheter placed. 11. Possible acute gram-negative pneumonia versus MRSA pneumonia. Completed course of antibiotics. 12. Hypertension. 13. Morbid obesity with BMI of 53. 14. DVT prophylaxis. Lovenox. 15. GI prophylaxis. Protonix 40 mg IV push daily. 16. Iron deficiency anemia, on iron and aspirin 40 g every 7 days CODE STATUS: Full code Prognosis poor. DISCHARGE PLAN [facility] probably select specialty Impression and plan of care have been directed as dictated by the signing physician. Kimberly Boswell nurse practitioner acting as scribe for signing physician.
[2020-10-19 18:09] LABS: Glucose,Whole Blood 283 mg/dL (75-99)
[2020-10-19] MEDS ORDERED: ACETAMINOPHEN IV (For NPO) 1,000 MG in EMPTY BAG 1 BAG IVPB ONE (18:53)
[2020-10-20 00:03] LABS: Glucose,Whole Blood 363 mg/dL (75-99)
[2020-10-20] MEDS: INSULIN ASPART (NovoLOG) 100 UNIT/ML VIAL SQ SCH ×5 (00:11→17:34)
[2020-10-20] MEDS: fentaNYL (PF) 2,500 MCG in SODIUM CHLORIDE 0.9% 200 ML IV SCH (01:04)
[2020-10-20] MEDS: DEXMEDETOMIDINE/0.9% NACL(PMX) 400 MCG in EMPTY BAG 1 BAG IV SCH ×5 (01:20→21:10)
[2020-10-20 02:40] LABS: Potassium 4.3 mmol/L (3.5-5.1)
[2020-10-20 02:41] LABS: Anisocytosis Slight; HCT 20.3 % (34.0-46.0); Hypochromasia Marked; MCH 28.2 pg (25.0-35.0); MCHC 31.3 g/dL (31.0-37.0); MCV 90.1 fL (80.0-100.0); Mean Platelet Volume 8.9; Platelet Count 275 k/uL (150-450); Poikilocytosis Moderate; RBC 2.25 m/uL (3.80-5.40); RDW 17.9 % (11.5-15.5); WBC 22.2 k/uL (3.8-10.6)
[2020-10-20 02:45] LABS: HGB 6.3 gm/dL (11.4-16.0)
[2020-10-20 04:26] LABS: Band Neutrophils % 6 %; Lymphocytes # (M) 0.89 k/uL (1.0-4.8); Metamyelocytes # (M) 1.55 k/uL (0); Metamyelocytes % 7 %; Monocytes # (M) 1.78 k/uL (0-1.0); Myelocytes % 9 %; Neutrophils % (M) 66 %; Nucleated Red Blood Cells 0 /100 WBC (0-0); Polychromasia Present; Total Cells Counted 200
[2020-10-20] MEDS: NOREPINEPHRINE 8 MG in SODIUM CHLORIDE 0.9% 250 ML IV SCH (04:26)
[2020-10-20 04:27] LABS: Basophilic Stippling Present
[2020-10-20] MEDS: ACETAMINOPHEN TAB 325 MG TAB PO PRN (04:28)
[2020-10-20 06:25] LABS: Glucose,Whole Blood 366 mg/dL (75-99)
[2020-10-20 06:31] LABS: ABG Base Excess -0.7 mmol/L; ABG HCO3 25 mmol/L (21-25); ABG Oxygen Saturation 96.4 % (94-97); ABG PCO2 49 mmHg (35-45); ABG PH 7.32 (7.35-7.45); ABG PO2 92 mmHg (83-108); ABG TCO2 27 mmol/L (19-24); Allen Test Performed? Yes
[2020-10-20] MEDS: SEVELAMER 800 MG TAB PO SCH ×3 (06:49→16:50)
[2020-10-20] MEDS: SODIUM CHLORIDE 0.9% 500 ML 500 ML IV SCH (07:00)
[2020-10-20] MEDS ORDERED: INSULIN DETEMIR (LEVEMIR) 100 UNIT/ML SYR SQ SCH (07:00)
[2020-10-20] MEDS: ALBUTEROL HFA INHALER INHALATION SCH ×4 (07:30→19:17)
--- NOTE | 2020-10-20 08:48 | XR ---
EXAMINATION TYPE: XR chest 1V portable DATE OF EXAM: 10/20/2020 COMPARISON: 10/19/2020 INDICATION: Assess lungs TECHNIQUE: Single frontal view of the chest is obtained. FINDINGS: The heart size is mildly prominent. The pulmonary vasculature is prominent. Diffuse infiltrate is present throughout the bilateral lung ann. PICC line enters on the right wit h the tip in the proximal superior vena cava. Double-lumen catheter is on the right with the tips in the distal superior vena cava. Tracheostomy tube is in the midline. IMPRESSION: 1. Findings can be compatible with volume overload and congestive heart failure. Clinical correlation and follow-up is recommended. 2. Lines and catheters discussed above.
[2020-10-20] MEDS: CHLORHEXIDINE GLUCONATE 15 ML CUP MUCOUS MEM SCH ×2 (09:07→20:28)
[2020-10-20] MEDS: PANTOPRAZOLE 40 MG/10 ML VIAL IVP SCH (09:07)
[2020-10-20] MEDS: DEXAMETHASONE SOD PHOSPHATE 4 MG/ML 1 ML VIAL IV SCH (09:07)
[2020-10-20] MEDS: CHOLECALCIFEROL 25 MCG (1000 IU) TABLET PO SCH (09:07)
[2020-10-20] MEDS: ASCORBIC ACID 500 MG TAB PO SCH ×2 (09:07→20:28)
[2020-10-20] MEDS: ENOXAPARIN 30 MG/0.3 ML SYRINGE SQ SCH (09:07)
[2020-10-20] MEDS: SODIUM BICARBONATE TAB 650 MG TAB PO SCH ×3 (09:08→21:12)
[2020-10-20] MEDS: QUEtiapine 100 MG TAB PO SCH ×2 (09:08→21:12)
--- NOTE | 2020-10-20 10:59 | P.PN ---
Subjective Progress Note Date: 10/20/20 CHIEF COMPLAINT: COVID-19 pneumonia HISTORY OF PRESENT ILLNESS: Patient is in the ICU for COVID-19 pneumonia and respiratory failure. She is status post tracheostomy and PEG tube placement with Dr. Hollis. Patient is tolerating tube feedings. Dietitian has adjusted the patient's tube feedings to 50 mL per hour since patient is off of the propofol. Patient remains on mechanical ventilation. She is getting hemodialysis morning. Patient has drainage from tracheostomy site. She is currently on antibiotics. She did have a temp this morning of 101.3. White count trending up at 22.2 hemoglobin is 6.3 she's receiving a unit of blood Patient seen and examined with Dr. hollis PHYSICAL EXAM: VITAL SIGNS: Reviewed. GENERAL: Well-developed in no acute distress. HEENT: No sclera icterus. Extraocular movements grossly intact. Moist buccal mucosa. Head is atraumatic, normocephalic. Tracheostomy site with yellowish drainage ABDOMEN: Soft. Nondistended. Nontender. PEG tube site clean dry and intact NEUROLOGIC: Awake and opens eyes ASSESSMENT: 1. Acute hypoxic respiratory failure with prolonged mechanical ventilation due to COVID-19 pneumonia status post tracheostomy placement 2. Severe protein calorie malnutrition status post PEG tube placement PLAN: -Continue tube feedings -Continue supportive care -Continue ICU management -Continue trach care Physician Call Center Consultant note has been reviewed by physician. Signing provider agrees with the documented findings, assessment, and plan of care. Objective - Vital Signs Vital signs: Vital Signs Temp 99.1 F 10/20/20 09:02 Pulse 111 H 10/20/20 10:00 Resp 17 10/20/20 10:00 BP 95/60 10/20/20 10:00 Pulse Ox 97 10/20/20 10:00 Intake & Output 10/19/20 10/20/20 10/20/20 18:59 06:59 18:59 Intake Total 6216.028 3542.525 794.4 Output Total 4000 0 Balance -2917.138 1533.525 794.4 Weight 111.7 kg Intake: IV 166 320 50 0.9 Normal Saline 36 Pressure Bag ACETAMINOPHEN IV (For NPO 100 ) 1,000 mg In Empty Bag 1 bag @ 400 mls/hr IVPB ONCE ONE Rx#:[id number] Sodium Chloride 0.9% 500 130 220 50 ml 500 ml @ 10 mls/hr IV .Q24H [facility] Rx#:[id number] Intake, IV Titration 396.862 397.525 95.4 Amount Dexmedetomidine/0.9% NaCl 100 191.466 95.4 (Pmx) 400 mcg In Empty Bag 1 bag @ Titrate IV . Q0M [facility] Rx#:[id number] Norepinephrine 8 mg In 40.129 56.756 0 Sodium Chloride 0.9% 250 ml @ 0.05 MCG/KG/MIN 11. 136 mls/hr IV .[id number] [facility] Rx#:[id number] fentaNYL (PF) 2,500 mcg 256.733 149.303 In Sodium Chloride 0.9% 200 ml @ Per Protocol IV .Q0M [facility] Rx#:[id number] Tube Feeding 430 656 224 Blood Product 0 310 Rc As-1 Unit 0 310 [id number] Other 90 160 115 Output: Urine 0 Hemodialysis 4000 Other: # Voids 0 # Bowel Movements 1 1 ABP, PAP, CO, CI - Last Documented Arterial Blood Pressure 136/76 - Labs CBC & Chem 7: 10/20/20 02:07 10/20/20 02:07 Labs: Abnormal Lab Results - Last 24 Hours (Table) 10/19/20 10/19/20 10/20/20 Range/Units 11:17 18:07 00:01 WBC (3.8-10.6) k/uL RBC (3.80-5.40) m/uL Hgb (11.4-16.0) gm/dL Hct (34.0-46.0) % RDW (11.5-15.5) % Neutrophils # (Manual) (1.3-7.7) k/uL Lymphocytes # (Manual) (1.0-4.8) k/uL Monocytes # (Manual) (0-1.0) k/uL Metamyelocytes # (Man) (0) k/uL Myelocytes # (Manual) (0) k/uL ABG pH (7.35-7.45) ABG pCO2 (35-45) mmHg ABG Total CO2 (19-24) mmol/L BUN (7-17) mg/dL Creatinine (0.52-1.04) mg/dL Glucose (74-99) mg/dL POC Glucose (mg/dL) 206 H 283 H 363 H (75-99) mg/dL Crossmatch 10/20/20 10/20/20 10/20/20 Range/Units 02:07 02:07 04:14 WBC 22.2 H (3.8-10.6) k/uL RBC 2.25 L (3.80-5.40) m/uL Hgb 6.3 L* (11.4-16.0) gm/dL Hct 20.3 L (34.0-46.0) % RDW 17.9 H (11.5-15.5) % Neutrophils # (Manual) 15.90 H (1.3-7.7) k/uL Lymphocytes # (Manual) 0.89 L (1.0-4.8) k/uL Monocytes # (Manual) 1.78 H (0-1.0) k/uL Metamyelocytes # (Man) 1.55 H (0) k/uL Myelocytes # (Manual) 2.00 H (0) k/uL ABG pH (7.35-7.45) ABG pCO2 (35-45) mmHg ABG Total CO2 (19-24) mmol/L BUN 37 H (7-17) mg/dL Creatinine 1.88 H (0.52-1.04) mg/dL Glucose 331 H (74-99) mg/dL POC Glucose (mg/dL) (75-99) mg/dL Crossmatch See Detail 10/20/20 10/20/20 Range/Units 06:24 06:25 WBC (3.8-10.6) k/uL RBC (3.80-5.40) m/uL Hgb (11.4-16.0) gm/dL Hct (34.0-46.0) % RDW (11.5-15.5) % Neutrophils # (Manual) (1.3-7.7) k/uL Lymphocytes # (Manual) (1.0-4.8) k/uL Monocytes # (Manual) (0-1.0) k/uL Metamyelocytes # (Man) (0) k/uL Myelocytes # (Manual) (0) k/uL ABG pH 7.32 L (7.35-7.45) ABG pCO2 49 H (35-45) mmHg ABG Total CO2 27 H (19-24) mmol/L BUN (7-17) mg/dL Creatinine (0.52-1.04) mg/dL Glucose (74-99) mg/dL POC Glucose (mg/dL) 366 H (75-99) mg/dL Crossmatch Microbiology - Last 24 Hours (Table) 10/17/20 10:55 Gram Stain - Final Trachea Wound Culture - Final Acinetobacter ivonne/haemol
--- NOTE | 2020-10-20 11:01 | P.PN ---
Subjective Progress Note Date: 10/20/20 Principal diagnosis: DKA, COVID-19 pneumonia This is a 55-year-old -[place] female with history of type 2 diabetes, admitted today through the emergency room with a few days' history of increased shortness of breath, cough, fever, chest x-ray in the ER showed bilateral i nfiltrates consistent with COVID-19 pneumonia in the patient had positive PCR for COVID-19 infection. Patient had significantly abnormal labs on admission, she had an extremely low bicarb, extremely low pH, and marginal oxygenation at best. Patient was admitted to the regular medical floor, and I happened to be rounding on that same floor were and I was notified about this patient having worsening respiratory distress. Evaluated the patient, clearly the patient has DKA and she clearly has acute hypoxic respiratory failure secondary to COVID-19 pneumonia. As soon as I laid eyes on the patient, recommended immediate transfer to the ICU. Patient was placed on BiPAP however she did not tolerate BiPAP well, and when I went back to evaluate the patient in the ICU, she was basically deteriorating, and she was using her accessory muscles, patient was in severe respiratory distress. Hence I recommended immediate intubation and placement on mechanical ventilation. Chest x-ray continued to show bilateral infiltrates consistent with worsening COVID-19 pneumonia ABG showed a pO2 of 59 pCO2 of 42 pH of 7.05 and this was on the 100% FiO2 20 of PEEP tidal volume of 375 rate of 36. Patient will be given more bicarb and she is already on a bicarb drip. She is receiving insulin and she is also receiving IV fluids in the form of 0.9 normal saline. Sugars were 384. Inflammatory markers were added to be extremely high, LDH 2048, and C-reactive protein of 8.7. D-dimer was borderline elevated at 1.84. On 09/12/2020 patient seen in follow-up in the intensive care unit, yesterday she was emergently transferred to the intensive care and intubated and placed on mechanical ventilator. She remains intubated, sedated on mechanical ventilator, currently on assist control mode of ventilation with a rate 36, tidal vital 375, FiO2 100% and PEEP of 20. This might blood gas reveals pO2 of 62, pCO2 40, pH of 7.35 this was done on FiO2 of 80%, her peak airway pressure is 35, in her plateau pressure is around 32. she is sedated on Diprivan and 60 mics per kilo per minute, 0.9 normal saline at 100 ML per hour, insulin drip is at 4 units per hour, and she has 5% dextrose with 3 units of bicarbonate at 100 ML per hour. Today's labs have been reviewed, showing white blood cell count 10.3, hemoglobin of 14.4, d-dimer has increased to 14.31, and her Lovenox was adjusted and increased to 50 mg twice daily, sodium is 137, potassium is 3.7, chloride is 112, CO2 is up to 21, BUN of 16 creatinine is 1.57, LDH is 2618, CRP is 18.2. Pro-Calcitonin level came back elevated at 3.53, suggesting possibility of bacterial infection She received a liter bolus yesterday after intubation. We w ill give the patient additional fluid boluses today. Sputum culture has been sent and is pending, blood cultures have been sent. Patient has been placed in prone position at 8:00 last night, and her oxygenation seems to be improved and she satting 97% on 100% FiO2 and subsequently FiO2 was dropped down to 80%, and PEEP is down to 18. She remains in prone positioning, tolerating it well, she is having low-grade fevers, she is in sinus mechanism with tachycardic on the monitor, not requiring any vasopressor support right now, will start tube feedings today when the patient is placed back over in the supine position On 09/13/2020 patient seen in follow-up in intensive care unit, she remains proned, and at the time of our evaluation patient has already been prone for close to 16 hours and is about to be turned back on her spine. She tolerates prone position quite well, she remains intubated, paralyzed and sedated on mechanical ventilator, current vent settings are assist-control mode of ventilation with a rate of 36, tidal volume 375, FiO2 of 70% and PEEP of 18, this point his blood gases show pO2 of 82, pCO2 of 39, and pH of 7.19. She's currently on D5 W with 3 A of bicarbonate at 75 per hour, Diprivan is a 60 mics per kilo per minute, index is at 2 mics per kilo per minute, and insulin drip is at 6 units per hour, patient has not started tube feedings yet. She is in sinus mechanism, hemodynamically stable, not requiring any vasopressor support. Today's chest x-ray has been reviewed showing bilateral lung infiltrates that appear to be stable. Today's labs have been reviewed showing white blood cell count of 11.1, hemoglobin 13.2, d-dimer is pending, yesterday his d-dimer was 14.3, patient's Lovenox dose was increased to 50 mg every 24 hours. Her renal function continued to worsen, and her creatinine is up to 3.4 on today's labs, BUN is 24, were bicarb concentration is only 13 on today's labs, sodium is 137, potassium is 4.0. AST is up to 77, ALT and alk phos are within normal limits, yesterday set him inflammatory markers with showing up trending LDH at 2618, and CRP of 18.2. Her pro-calcitonin level was increased yesterday at 3.53 and we added empiric antibiotics in the form of Zosyn. Sputum culture has been sent and has shown no growth. Overnight patient remained oliguric, yesterday we gave her additional fluids, however did not improve her renal function and her kidney function continued to get worse. Nephrology consultation has been requested, she has only been producing urine in the order of 5-10 ML per hour, renal ultrasound has been obtained showing no evidence of hydronephrosis bilaterally. On 09/14/2020 patient seen in follow-up in intensive care unit, she remains intubated, sedated and paralyzed, currently on assist control mode of ventilation with a rate of 36, tidal vital 375, FiO2 of 60% and PEEP of 18. This morning's blood gas was reviewed showing pO2 of 60, pCO2 of 43, and pH of 7.32. This was done on FiO2 of 70%, her peak airway pressure is 40, plateau pressures 26. She is currently on D5 with 3 A of bicarbonate at 100 ML per hour, insulin drip is at 7 units per hour, fentanyl drip is a 0.5 mics per kilo per hour, Diprivan and is at 50 mics per kilo per minute, and index is at 2 mics per kilo per minute. She is tolerating tube feedings of vital high-protein at 27 with a goal 27 standard water flushes. Today's chest x-ray has not been completed yet, because the patient has been in prone position for last 16 hours. Patient tolerates prone in quite well, and her oxygenation improves when she is in prone position. However when she is turned over in the supine position to complete chest x-rays and ADL's, patient's O2 sat drops down to low 80s and her FiO2 requirement increases at that time. Today's labs have been reviewed, and there has been further worsening of her renal function, and patient has made almost no urine overnight. Her BUN is 33, and creatinine is 4.87, nephrology is following, her renal ultrasound showed no evidence of hydronephrosis. Her urinalysis showed possibility of urinary tract infection, and patient has been started on cefepime. Urine culture is pending at this time, blood and sputum cultures have been negative. No fevers overnight, she's not requiring any vasopressor support. On 09/15/2020 patient seen in follow-up in intensive care unit, she remains intubated, sedated and paralyzed on assist-control mode of ventilation with a rate of 36, tidal vital 375, FiO2 100% and PEEP of 18, this morning's blood gas reviewed showing pO2 of 58, pCO2 of 45, and pH is 7.35, this was done on FiO2 of 100%. Her peak airway pressures 44, plateau pressures 38, she is on 0.9 normal saline at 50 ML per hour, Diprivan is a 40 mics per kilo per minute, Nimbex drip is a 2 mics per kilo per minute, and fentanyl drip at 0.5 mics per kilo per hour, she is tolerating tube feedings with vital high-protein is 27 with a goal of 27 standard water flushes. She is in sinus mechanism with a rate of 73, she is hemodynamically stable and not requiring any vasopressors. Today's chest x- ray shows ARDS, bilateral airspace opacities, no significant pleural effusion and no pneumothorax. Today's labs have been reviewed, white blood cell count is 9.9, hemoglobin is 11.3, sodium is 134, respiratory electrolytes were within normal limits, and there has been further worsening of her renal function with BUN of 34, creatinine is 4.78, her urine output has remained very poor. Last night she had her first hemodialysis session and no fluid was removed, this morning she is having another hemodialysis treatments and the goal is to remove half a liter of fluid. Her sputum, blood and urine cultures remained negative thus far, patient's pro-calcitonin level came back significantly elevated at 23.5 suggesting evidence of bacterial infection. Patient remains on cefepime for antibiotic coverage, she also remains on Decadron milligrams twice daily, and Lovenox is 50 mg every 24 hours. On 09/18/2020 patient seen in follow-up in the intensive care unit. She remains intubated, sedated and paralyzed on mechanical ventilator on assist control mode with a rate of 36, tidal volume 375, FiO2 of 60% and PEEP of 20, this might blood gas shows pO2 of 72, pCO2 38, and pH is 7.35, today's chest x-ray still showing bilateral airspace disease possibly slightly improved compared yester day's chest x-ray. Patient is currently on multiple drips including 0.9 normal saline at 20 no per hour, Nimbex is at 3 mics per kilo per minute, Diprivan is at 50 mics per kilo per minute, fentanyl drip is at 1 phil per kilo per hour, insulin drip is at 4 units per hour, she is on tube feedings with vital high- protein at a rate of 10 with a goal of 36 and standard water flushes. Patient has been getting hemodialysis treatments, her last treatment was on 09/16/2020 with removal of 1.2 L of fluid. Today's labs have been reviewed, showing white blood cell count of 12.6, hemoglobin of 9.8, last d-dimer from yesterday was 6.83, and patient remains on Lovenox and 50 mg daily, sodium was 133, potassium is 3.2, chloride is 102, CO2 is 21, BUN of 35, creatinine is 4.12. Her last set of inflammatory markers was from yesterday showing improvement although LDH was still elevated at 1913, and CRP was 1.3. She remains on IV Decadron 6 mg twice daily, she is also on cefepime for empiric antibiotic coverage, and so far all her cultures including sputum blood and urine are negative. Patient has been tolerating prone positioning well, and she has been prone up to 16-20 hours on a daily basis. On 09/19/2020 patient seen in follow-up in intensive care unit, she remains sedated, paralyzed and trached to the ventilator currently on assist control mode of ventilation with a rate of 36, tidal volume is 375, FiO2 of 60% and PEEP of 20. This morning's blood gases show pO2 of 85, pCO2 37, and pH of 7.33, and this was done and FiO2 of 60%. She is status post tracheostomy and PEG tube placement yesterday on 09/18/2020, she is currently in supine position, and that she is having hemodialysis treatment. Yesterday 2-1/2 L of fluid was removed with hemodialysis, the goal to remove another 2 L of fluid with today's hemodialysis treatments, today's chest x-ray shows bilateral multifocal and c onfluent opacities consistent with COVID-19 infection, and some improved aeration at the periphery of the left lung but worsening opacities throughout the right lung compared to one day earlier. Patient is currently on 0.9 normal seen at 20 ML per hour, Nimbex is at 1.5 mics per kilo per minute, Diprivan is a 50 mics per kilo per minute, we will send is currently off, fentanyl drip is at 1 phil per kilo per hour, and insulin is at 5 units per hour, tube feedings are on hold and are expected to be restarted later on today. His labs have been reviewed showing white blood cell count of 14.3, hemoglobin of 9.6, d-dimer is relatively stable at 6.48, sodium is 130, potassium is 3.5, CO2 of 18, and renal profile shows some improvement with BUN of 34, and creatinine is 3.81. Her inflammatory markers are improving, LDH today is 1686, and CRP is 1.1. Her blood sputum and urine cultures have shown no growth to date. Patient continues on cefepime, current dose Lovenox is 15 mg once daily adjusted for her renal function, and she continues on Decadron 6 mg twice daily. 10/18/2020 patient is being seen for a follow-up. Remains in intensive care unit on a mechanical ventilator post COVID-19 related ARDS and respiratory failure. For now, we'll managed to get the patient off paralytics. We managed also to switch her to a combination of Precedex and fentanyl. Propofol was discontinued as the patient has developed very high levels of triglycerides. Currently, Precedex is running at 0.6 mics of respiratory event per minute and fentanyl is running at 2 mcg/kg/h. She opens up her eyes. She follows some verbal cues. Nevertheless, she does not follow any commands. She is not moving her arms to demand. She is quite successful mechanical ventilator. This morning, she is on a VAC plus mode with a rate of 32 and tidal volume of 300 and FiO2 of 70% with a PEEP of 14. The peak pressure was around 30 she'll. Blood gases from today showed a pH of 7.5 with a pCO2 of 50 and pO2 of 94. Chest x- ray was still showing diffuse bilateral pulmonary infiltrates consistent with post COVID-19 related ARDS. She is having some respiratory secretions around the tracheostomy tube. There is a concern for infection. Her white cell count is up to 30. Based on that, cultures will be sent and the patient will be started on empiric antibiotic coverage with IV cefepime. She is currently u ndergoing hemodialysis. The plan is to do daily hemodialysis. Last session was done yesterday and the patient ultrafiltration of around 4 L. The same will be done today. She continues to be edematous in all 4 extremities pH is tolerating her enteral feeding for nutritional support. She remains on Decadron at a dose of 4 mg on a daily basis patient is on Lovenox 30 mg subcu for DVT prophylaxis. She is receiving enteral feeding for nutritional support in the form of vital high protein at the rate of 10 mL an hour and this is to be modified nontender the patient is currently off propofol. This will be discussed further with dietary. Otherwise, she is doing better. I am excited to see her opening up her eyes and looking around. Her mental status is not completely recovered yet. Note that the patient was following commands approximately 3 weeks ago prior to her full-blown decompensation. 10/19/2020, I'm seeing the patient for a follow-up. He remains ventilator dependent with ARDS post COVID-19 infection. This morning, we have managed to keep the patient on a combination of Precedex at 0.7 mcg/kg/h and fentanyl at micrograms per kilogram per hour. The patient seems to be quite interested a mechanical ventilator. She is on a VAC plus mode. Her current rate is a 32 with a total volume of 300-60% with a PEEP of 12. Blood gases showing a pH of 7.32 with a pCO2 of 45 and pO2 of 82. Her current respiratory rate is around 36. Her peak airway pressure is 32. She was having some secretions around the tracheostomy tube stoma and based on some fever and purulent mucus and leukocytosis, with a subsequent to this patient IV cefepime. She is currently receiving IV cefepime 12 hours and the cultures positive for gram-negative bacillus. She is still having a low-grade fever. The white cell count is up to 19.9. Chest x-ray remains unchanged with diffuse bilateral pulmonary infiltrates consistent with COVID-19 related pneumonia/ARDS. Note that the patient is currently off propofol. Adjustments were made on enteral feeding and currently she is on vital high AF running at 50 mL an hour which is goal and the patient is able to tolerate that without any major difficulties. The patient is undergoing daily dialysis and despite that she continues to have significant amount of third spacing. For instance, the dialysis was done yesterday with a total of 4 L fluids being ultrafiltrate. Neurologically, she opens her eyes, looks around, does not follow any commands, not sure if she is sleeping. She grimaces to painful stimulation. At times she gets quite restless and agitated. In terms of her COVID-19 and steroid treatment, I been gradually weaning off th e steroids and the patient's will be dropped down to 2 mg patient remains on anticoagulation with Lovenox 30 mg subcu every 24 hours. On 10/20/2020 patient seen in follow-up in the intensive care unit, she is awake, withdraws from pain, purposeful, however not following commands right now, she is still on sedation in the form of Precedex 0.7 mics per kilo per hour, and fentanyl infusion is at 1 phil per kilo per hour, 0.9 normal saline is at 10 ML per hour, and she is requiring small amount of vasopressor support in the form of norepinephrine at 2.2 mics per minute. Patient's trached to the ventilator, currently on VC plus mode of ventilation with a rate of 32, tidal volume was 300, FiO2 of 60% and PEEP of 12. Blood gas shows pO2 of 92, pCO2 49, and pH is 7.32 and this was done on the above mentioned vent settings. His chest x-ray shows evidence of pulmonary vasculature, and findings are compatible with fluid volume overload and congestive heart failure, patient is having a hemodialysis treatment today with a goal of removing 4 L of fluid. Patient has been dialyzed on a daily basis with removal of an average of 4 L of fluid on a daily basis. Does not produce any urine. Haley catheter had been removed several days ago, today's labs have been reviewed, white blood cell count has trended up slightly, and is currently at 22.2, hemoglobin is 6.3 and patient received 1 unit of packed red blood cells, no evidence of any bleeding, platelet count is 275, lites are within normal limits, BUN is 37, and creatinine is 1.8. Her pro-calcitonin level from a couple days ago was elevated at 3.3. Had a recent cultures done including blood and sputum and urine left radial arterial line tip culture and drainage from around the tracheostomy insertion site. Tracheostomy insertion site drainage was positive for Acinetobacter baumanni, patient's currently on cefepime which the organism is sensitive to. She did have fevers last night, afebrile this morning, T-max in the last 24 hours was 102.8F. And is tolerating tube feedings, she is receiving viral a half at 56 ML per hour which is goal, with standard water flushes of 30 mL every 4 hours. Weak, she is looking around the room, but not following any commands, severe generalized weakness, she has mild edema involving her upper and lower arms. Objective - Vital Signs Vital signs: Vital Signs Temp 99.1 F 10/20/20 09:02 Pulse 111 H 10/20/20 10:00 Resp 17 10/20/20 10:00 BP 95/60 10/20/20 10:00 Pulse Ox 97 10/20/20 10:00 Intake & Output 10/19/20 10/20/20 10/20/20 18:59 06:59 18:59 Intake Total 0241.247 7422.525 699 Output Total 4000 0 Balance -2917.138 1533.525 699 Weight 111.7 kg Intake: IV 166 320 50 0.9 Normal Saline 36 Pressure Bag ACETAMINOPHEN IV (For NPO 100 ) 1,000 mg In Empty Bag 1 bag @ 400 mls/hr IVPB ONCE ONE Rx#:[id number] Sodium Chloride 0.9% 500 130 220 50 ml 500 ml @ 10 mls/hr IV .Q24H [facility] Rx#:[id number] Intake, IV Titration 396.862 397.525 0 Amount Dexmedetomidine/0.9% NaCl 100 191.466 (Pmx) 400 mcg In Empty Bag 1 bag @ Titrate IV . Q0M [facility] Rx#:[id number] Norepinephrine 8 mg In 40.129 56.756 0 Sodium Chloride 0.9% 250 ml @ 0.05 MCG/KG/MIN 11. 136 mls/hr IV .[id number] [facility] Rx#:[id number] fentaNYL (PF) 2,500 mcg 256.733 149.303 In Sodium Chloride 0.9% 200 ml @ Per Protocol IV .Q0M [facility] Rx#:[id number] Tube Feeding 430 656 224 Blood Product 0 310 Rc As-1 Unit 0 310 [id number] Other 90 160 115 Output: Urine 0 Hemodialysis 4000 Other: # Voids 0 # Bowel Movements 1 1 ABP, PAP, CO, CI - Last Documented Arterial Blood Pressure 136/76 - Exam GENERAL EXAM: Awake, but not following any commands, looking around the room, 35-year-old -[place] female, trached to the ventilator on VC plus mode of ventilation with FiO2 60 percent and PEEP of 12, with a pulse ox of 95% comfortable in no apparent distress. He is on Precedex 0.7 mics per kilo per hour, and fentanyl infusion is at 1 phil per kilo per hour HEAD: Normocephalic/atraumatic. EYES: Normal reaction of pupils, equal size. Conjunctiva pink, sclera white. NOSE: Clear with pink turbinates. THROAT: No erythema or exudates. NECK: No masses, no JVD, no thyroid enlargement, no adenopathy. Midline tracheostomy in place, clean dry and intact, patient is connected to the ventilator CHEST: No chest wall deformity. Symmetrical expansion. Patient has right upper chest permacath hemodialysis catheter in place LUNGS: Equal air entry with bilateral crackles CVS: Regular rate and rhythm, normal S1 and S2, no gallops, no murmurs, no rubs ABDOMEN: Soft, nontender. No hepatosplenomegaly, normal bowel sounds, no guarding or rigidity. Peg tube in place, and is receiving tube feedings in the form of vital AF 56 ML per hour EXTREMITIES: No clubbing, mild generalized edema, and edema involving upper and lower extremities noted no cyanosis, 2+ pulses and upper and lower extremities. MUSCULOSKELETAL: Muscle strength and tone normal. SPINE: No scoliosis or deformity SKIN: No rashes CENTRAL NERVOUS SYSTEM: awake but drowsy, tracks with eyes, trached to the mechanical ventilator No focal deficits, tone is normal in all 4 extremities. - Labs CBC & Chem 7: 10/20/20 02:07 10/20/20 02:07 Labs: Abnormal Lab Results - Last 24 Hours (Table) 10/19/20 10/19/20 10/20/20 Range/Units 11:17 18:07 00:01 WBC (3.8-10.6) k/uL RBC (3.80-5.40) m/uL Hgb (11.4-16.0) gm/dL Hct (34.0-46.0) % RDW (11.5-15.5) % Neutrophils # (Manual) (1.3-7.7) k/uL Lymphocytes # (Manual) (1.0-4.8) k/uL Monocytes # (Manual) (0-1.0) k/uL Metamyelocytes # (Man) (0) k/uL Myelocytes # (Manual) (0) k/uL ABG pH (7.35-7.45) ABG pCO2 (35-45) mmHg ABG Total CO2 (19-24) mmol/L BUN (7-17) mg/dL Creatinine (0.52-1.04) mg/dL Glucose (74-99) mg/dL POC Glucose (mg/dL) 206 H 283 H 363 H (75-99) mg/dL Crossmatch 10/20/20 10/20/20 10/20/20 Range/Units 02:07 02:07 04:14 WBC 22.2 H (3.8-10.6) k/uL RBC 2.25 L (3.80-5.40) m/uL Hgb 6.3 L* (11.4-16.0) gm/dL Hct 20.3 L (34.0-46.0) % RDW 17.9 H (11.5-15.5) % Neutrophils # (Manual) 15.90 H (1.3-7.7) k/uL Lymphocytes # (Manual) 0.89 L (1.0-4.8) k/uL Monocytes # (Manual) 1.78 H (0-1.0) k/uL Metamyelocytes # (Man) 1.55 H (0) k/uL Myelocytes # (Manual) 2.00 H (0) k/uL ABG pH (7.35-7.45) ABG pCO2 (35-45) mmHg ABG Total CO2 (19-24) mmol/L BUN 37 H (7-17) mg/dL Creatinine 1.88 H (0.52-1.04) mg/dL Glucose 331 H (74-99) mg/dL POC Glucose (mg/dL) (75-99) mg/dL Crossmatch See Detail 10/20/20 10/20/20 Range/Units 06:24 06:25 WBC (3.8-10.6) k/uL RBC (3.80-5.40) m/uL Hgb (11.4-16.0) gm/dL Hct (34.0-46.0) % RDW (11.5-15.5) % Neutrophils # (Manual) (1.3-7.7) k/uL Lymphocytes # (Manual) (1.0-4.8) k/uL Monocytes # (Manual) (0-1.0) k/uL Metamyelocytes # (Man) (0) k/uL Myelocytes # (Manual) (0) k/uL ABG pH 7.32 L (7.35-7.45) ABG pCO2 49 H (35-45) mmHg ABG Total CO2 27 H (19-24) mmol/L BUN (7-17) mg/dL Creatinine (0.52-1.04) mg/dL Glucose (74-99) mg/dL POC Glucose (mg/dL) 366 H (75-99) mg/dL Crossmatch Microbiology - Last 24 Hours (Table) 10/17/20 10:55 Gram Stain - Final Trachea Wound Culture - Final Acinetobacter ivonne/haemol Assessment and Plan Plan: Assessment: #1. Acute hypoxic respiratory failure secondary to COVID-19 pneumonia/ARDS, transferred to the intensive care unit on 09/11/2020 and intubated and placed on mechanical ventilator on 09/11/2020. Patient received 1 dose of Remdesivir on 09/11/2020, however based on her quick progression of her hypoxic respiratory failure she received Tocilizumab 800 mg on 09/11/2020. Tracheostomy and PEG tube placed on 09/18/2020. Patient remains in ARDS with diffuse infiltrates. We are still allowing permissive hypercapnia, low tidal volume ventilation. He is showing improvement in oxygenation. Chest x-ray findings are stable. There is concern of some ongoing infection as the patient has developed some mild leukocytosis and at the same time she is having some purulent material around the tracheostomy stoma. Cultures are showing gram-negative bacillus. The patient started on IV cefepime. White cell count is improving. Still having l ow-grade fever. #2. Acute kidney injury related to ATN, nephrology has been consulted, ultrasound of the kidneys showed no evidence of hydronephrosis. Patient was initiated on hemodialysis on 09/14/2020. Permacath placed 09/20/2020. Patient is undergoing daily dialysis. #3. diabetes mellitus, insulin-dependent and the patient is currently on insulin sliding scale coverage with NovoLog #4. obesity with a BMI is down to 50 #5. lovenox prophylaxis dose of 30 mg subcu every 24 hours #6. hypotension, recovered and the patient is currently on no pressors #7. Corneal injury, punctate keratitis, left eye #8. Anemia of chronic disease, post 1 unit rbc on 10/04/2020 and 1 unit today on 10/20/2020 for a hemoglobin of 6.3 #9. Generalized anxiety disorder. #10. hypertriglyceridemia, currently off propofol and will utilizing a combination of Precedex and fentanyl. #11. leukocytosis, improving #12. Acinetobacter baumannii infection of the trach site. Currently on IV cefepime, and sensitivity screen showed the organism is sensitive to Cefepime #13. encephalopathy/delirium , currently on Seroquel. Fentanyl and Precedex will be gradually weaned off. Plan: Today's chest x-ray in labs and blood gases have been reviewed Continue with current vent settings, cut back FiO2 to 50% PEEP down to 10, accept O2 saturations of 88% and above Attempt to cut back sedation Discontinue fentanyl infusion Dilaudid 0.5 mg every 3 hours PRN pain Precedex for now will continue Hemodialysis today, 1 unit if blood transfused Continue cefepime Continue Lovenox and Decadron 2 mg daily Continue glucose control Continue tube feeds Physical therapy evaluation and treatment on a daily basis We'll continue to closely follow in the intensive care unit I performed a history & physical examination of the patient and discussed their management with my nurse practitioner, Renetta Moreira. I reviewed the nurse practitioner's note and agree with the documented findings and plan of care. Lung sounds are positive for diminished breath sounds. The findings and the impression was discussed with the patient. I attest to the documentation by the nurse practitioner. Time with Patient: Greater than 30
[2020-10-20 11:35] LABS: Glucose,Whole Blood 246 mg/dL (75-99)
--- NOTE | 2020-10-20 11:44 | PN ---
PROGRESS NOTE Patient is seen for followup for acute kidney injury, currently with oliguric renal failure and hemodialysis dependent, being dialyzed on a daily basis for volume overload. PHYSICAL EXAMINATION: On examination today, blood pressure was 116/79, heart rate 111 per minute. Patient is afebrile. Examination of the lower extremities shows edema 2+ bilaterally upper and lower extremities. Abdomen is soft, obese, nontender. The patient remains sedated and on the vent. LAB: Show hemoglobin 6.3 g/dL, sodium 138, potassium 4.3, serum creatinine 1.8. ASSESSMENT: 1. Acute kidney injury, hemodialysis dependent, with no significant urine output. Being dialyzed daily mostly for volume overload. 2. Volume overload. The patient has been tolerating 4 L of ultrafiltration on a daily basis. 3. Acute hypoxic respiratory failure secondary to COVID pneumonia/ARDS. 4. Anemia. No obvious bleeding noted at this time. Patient is receiving packed RBCs transfusion. She is maintained on Aranesp, which we can continue. 5. Metabolic acidosis maintained on oral sodium bicarb, currently stable with daily dialysis. 6. Mild hypercalcemia with calcium staying 10-10.3, currently being dialyzed on a low calcium bath. PLAN: Repeat hemodialysis in a.m. UF of about 4 L again. Following that, next treatment will be on Friday10/23/2020. MMODL / IJN: [id number] /
[2020-10-20] MEDS: HYDROmorphone 0.5 MG/0.5 ML SYRINGE IVP PRN (14:23)
[2020-10-20] MEDS ORDERED: INSULIN DETEMIR (LEVEMIR) 100 UNIT/ML SYR SQ STA (14:45)
[2020-10-20] MEDS ORDERED: INSULIN ASPART (NovoLOG) 100 UNIT/ML VIAL SQ SCH (15:00)
[2020-10-20] MEDS: CEFEPIME 1 GM in SODIUM CHLORIDE 0.9% 50 ML IVPB SCH (15:02)
--- NOTE | 2020-10-20 15:33 | P.PN ---
Subjective Progress Note Date: 10/20/20 HISTORY OF PRESENT ILLNESS 35-year-old female patient of Dr. Arroyo with past medical history of type 2 diabetes comes in with acute shortness of breath associated with high light sugars. Patient on admission was found to have a fever of 101.5 pulse rate 125 respiratory rate 20. Blood pressure 132/106. On chest x-ray obtained in the ER suggestive of bilateral infiltrates concerning for call with pneumonia. COVID PCR was positive. On admissions patient had an ABG with a pH of 7.14 pCO2 of 20, pO2 of 59, bicarb of 7. Patient's blood sugar on admission was 424 on assessment today patient's blood work patient had a sodium 135 potassium 5.4 chloride 123 bicarb less than 5 and creatinine 0.73. D-dimer was elevated on admission patient 9 28 patient given 1 L of IV fluids followed by normal saline running at 200 mL/h. Patient was positive for acetone on admission. She will anion gap closed and was switched to D5NS. Insulin drip was continued during the night and was switched to patient's home medication this morning. One dose of remdesiver was ordered. Apparently around noon, A- team was called on the patient secondary to hypoxia patient's oxygen saturation dropped to the 70s and 80s on 100% nonrebreather. Patient was switched to BiPAP on 18/12 and is doing better o FiO2 of 80%. ABG was obtained and ph was 7. 14 pCO2 of 28 bicarb of 7 pO2 of 17. Patient noted to have uncompensated metabolic acidosis with compensated respiratory alkalosis. Stat dose of 1 amp bicarb was given and followed by sodium bicarbonate drip. Insulin drip restarted. Patient's initiated on dexamethasone 6 mg IV twice a day. Potassium phosphate ordered as phosphorus is low. Patient's repeat blood gases suggest a pH of 7.25, CO2 32 pO2 of 72 bicarb 14. I will not normal saline at 100 mL/h as patient's anion gap has increased. Patient given 1 dose of 2 mg of morphine with improvement in respiratory rate. One dose of Ativan 0.5 mg was given. Xanax 0.25 twice a day along with Ativan 0.5 IV every 6 hours ordered for the patient. Vitals were evaluated patient pulse 129 [id number]. She was moved to the ICU. Precedex drip was initiated. Lopressor was initiated at 25 twice a day. Metoprolol tartrate 5 mg IV every 6 hours. Systolic blood pressure more than 160. Started chest x-ray was obtained and suggest stable bilateral consolidation suggestive of COVID-19 pneumonia. 09/12 patient is seen in the ICU is currently mechanically ventilated and sedated on vent settings of respiratory rate 36, tidal volume 375 FiO2 80% PEEP of 18.. Vital signs reviewed patient had a temp of 100.4 pulse 150 respiratory rate 36 oxygen saturation 95% on 80% on fio2 .'s labs are reviewed which patient had a d-dimer 1.84 that is increased to 14.3. Arterial Blood gas suggest ph 7.35, CO2 40, po2 62, . Her BMP suggest a sodium 135 potassium 3.7 chloride 112 bicarb 21 creatinine 1.57 for calcitonin is 3.5 CRP is increased from 8.78.2 LDH is increased to 2614. Patient remains on Pneumovax, propofol drip. Lovenox increased to 50 subcu twice a day. Patient received 2 L of IV fluids. Continue IV fluids at 100 mL/h. Bicarb drip discontinued patient initiated on Zosyn 3.375 every 8 hours. Continue insulin drip at 4 units per hour. Patient is currently in prone positioning 09/13: Patient evaluated in the ICU remains on Ventilation continues to be sedated, in prone position. Vent settings are respiratory rate 36, tidal vital 375, FiO2 70% PEEP of 18. ABG shows pO2 of 82, PCO2 of 39, pH is 7.19. Latest labs show WBC 11.1, hemoglobin 13.2, d-dimer still pending, but yesterday was up to 14.3. Creatinine up to 3.4, BUN 24 sodium 137, potassium 4.0. Patient's urine output has been low, nephrology on consult. Bicarb drip increased to 100 miles an hour, receiving another liter of normal saline, she did have a ultrasound that showed unremarkable bilateral kidneys. Repeat chest x-ray showed bilateral lung infiltrates that are stable. Anion gap has closed, will start Lantus 10 units at at bedtime Novolog every 6 hours. 09/14: Patient is seen in the ICU, still currently mechanically ventilated and sedated. She continues in the prone position. Her oxygen quickly drops if she is not in prone. Patient's kidney function has worsened. Laboratory values show creatinine of 4.87, BUN 33, LDH 2191, C-reactive protein 2.7. ABG shows pH 7.32, pO2 of 60, pCO2 43. Patient is making almost no urine overnight. Nephrology is following patient continues on cefepime for urinary tract infection, culture is still pending. Vascular has been consulted for placement of temporary hemodialysis catheter for plans for dialysis. 09/15: Patient evaluated in the ICU, continues to be mechanically ventilated and sedated on assist control ventilation rate of 36, tidal volume 375, FiO2 100% and PEEP of 18. ABG today shows pO2 58, pCO2 of 45, and pH 7.35. She continues on tube feedings. Yesterday patient underwent ultrasound-guided right internal jugular non-tunneled hemodialysis catheter placement. Patient underwent hemodialysis treatment last night and plans have another hemodialysis treatment today. She continues to make almost no urine. She continues on cefepime for antibiotic coverage, and continues on Decadron and Lovenox. 09/16: Patient seen on follow-up remains in the ICU mechanically ventilated and sedated. She continues on assist control rate of 36, tidal volume 375, FiO2 100% and PEEP of 20. PEEP had to be increased due to patient had to be in supine position for dialysis, will go back to prone position once dialysis is complete. ABG shows pH 7.32, pCO2 49, PaO2 61. Laboratory values showed WBC 11.2, hemoglobin 11, sodium 134, creatinine 4.44, BUN 38. Urine culture shows no growth, blood cultures show no growth to date. Repeat chest x-ray shows bilateral pleural effusions, correlate for ARDS, pulmonary edema, diffuse pneumonia, findings are stable from last exam. Patient does not require any pressors, blood pressure 133/57, heart rate 78. 5/16: Patient was evaluated in the ICU today for follow-up. She continues to be intubated and on mechanical ventilation. Current vent settings are tidal volume 375, FiO2 100% and PEEP of 20. ABG shows pH 7.37, pCO2 40, pO2 102. She continues with intermittent prone positioning. Patient continues to have almost no urine output, maintained on dialysis. Patient received dialysis yesterday without complication. Laboratory values revealed WBC 10.3, hemoglobin 10.4, sodium 132, potassium 3.1, BUN 33, creatinine 4.29, LDH 1913, C-reactive protein 1.3. Urine and sputum cultures are negative, blood cultures show no growth to date. Consult placed to dietary to start TPN[ ] 09/18: She remains in the intensive care unit intubated and on mechanical ventilation with tidal volume 375, FiO2 60 and PEEP of 20. Patient is being prone to daily at approximately 16 hours per day. Pulmonary medicine has added in Dr. Zhang to do PEG tube and trach today. Patient is not on vasopressors. Repeat blood work reveals WBC 12.6, hemoglobin 9.8, platelet count 212. Sodium 133, potassium 3.2, chloride 102, CO2 21, BUN 35 and creatinine 4.12. Blood sugar 126. Patient underwent hemodialysis yesterday with removal of 2 L and is scheduled again today with goal of 2-3 L and is scheduled again tomorrow. 09/19: She is scheduled for hemodialysis today and is off fentanyl temporarily. Patient is status post trach and PEG tube yesterday. And she remains on mechanical ventilation. Pulse ox 93-95%. She has been afebrile, heart rate 64, respiratory rate 36, blood pressure 115/50. Fentanyl is off to improve blood pressure for hemodialysis which is scheduled for today. Contacted vascular surgery about permanent hemodialysis catheter. Repeat blood work reveals WBC 14.3, hemoglobin 9.6, platelet count 200. D-dimer 6.48. LDH 1686. C-reactive protein 1.1. BUN 34 creatinine 3.81. Sodium 130, potassium 3.5, chloride 101, CO2 18. Blood sugars running between 101 198. Plan is to wean off Pneumovax today. Patient remains on insulin drip. Repeat chest x-ray reveals bilateral multifocal confluent opacities consistent with COVID-19. Some improved aerati on periphery of the left lung and worsening opacities throughout the right lung. 09/20: She remains in the intensive care unit on mechanical ventilation. She has been afebrile, heart rate 65, respiratory rate 37, blood pressure 121/70, pulse ox 91-99%. Repeat blood work reveals WBC 14.5, hemoglobin 9.1, platelet count 216. D-dimer 6.13. Sodium 133, potassium 3.1, chloride 102, CO2 18, BUN 35 and creatinine 4.27. Blood sugars running between 128 and 143. LDH 1717. C- reactive protein 1.7. Patient remains on insulin drip which will be transitioned to NovoLog scale every 6 hours. Patient is scheduled for permanent hemodialysis catheter placement today with vascular surgery. Repeat chest x-ray reveals stable diffuse bilateral interstitial and airspace disease. Possible small right effusion. His work is following for transfer to [facility] facility. Do not anticipate discharge until next week. 09/21: Patient is undergoing hemodialysis. She remains on mechanical ventilation with tidal volume 375, FiO2 down to 45 and PEEP was decreased to 15. Patient is continued on propofol, fentanyl drips. She is on tube feedings at goal. Patient was taken off insulin drip yesterday and on scale only but blood sugars are running in the 200s, Levemir scheduled at bedtime will be added. Other blood work reveals WBC 13.3, hemoglobin 8.7, platelet count 192. Sodium 137, potassium 3.6, chloride 107, CO2 18, BUN 34 and creatinine 4.21. Repeat chest x-ray is stable. 09/22: She remains in the intensive care on mechanical ventilation with tidal volume 375, FiO2 of 50 and PEEP of 10. Pulse ox is running 96%. She is afebrile, heart rate in the 50s, respiratory rate 36, blood pressure 100/64. Repeat blood work reveals WBC 16.5, hemoglobin 8.9, platelet count 213. Sodium 134, potassium 3.7, chloride 103, CO2 21, BUN 34 and creatinine 3.89. Blood sugars running in the 200s to 324. Levemir increased to 16 units at bedtime and continue NovoLog scale every 6 hours. Patient is on tube feedings at goal. She has a Haley catheter in with a scant amount of dark/brown urine. Fecal management system is in place. Repeat chest x-ray reveals diffuse bilateral airspace infiltrates persist unchanged. Patient is scheduled for hemodialysis tomorrow morning on Friday. 09/23: Patient remains on mechanical ventilation with tidal volume 3.75, FiO2 50 and PEEP of 10. teletypesetter monitor sinus rhythm. She has no urine output. Fecal management system is in place. She is undergoing dialysis at this time with plan for removal of 2-1/2 L. She has been afebrile, heart rate in the 50s, respiratory rate 36, blood pressure 108/76 and pulse ox 89%. WBC 13.6, hemoglobin 9.1, platelet count 194. Sodium 136, potassium 3.0 and was replaced, chloride 106, CO2 21, BUN 49 creatinine 5.31. Blood sugars are running between 182 and this morning 194. Patient was still in the 200s and 300s. Levemir last evening was increased to 16 units. Patient remains on propofol and fentanyl dri ps. Lovenox was increased to 60 mg twice daily. 09/24: PEEP was increased today to 20, tidal volume is at 375 and FiO2 of 50%. Patient has been afebrile. She has been started on levo fed. Repeat chest x- ray reveals bilateral multifocal confluent opacities consistent with Covid 19 or ARDS redemonstrated. Nephrology will plan dialysis for tomorrow for 3 L. Patient remains on propofol fentanyl and Nimbex. WBC 12.5, hemoglobin 9.8, platelet count 161. D-dimer 13.3. Sodium 132, potassium 3.4, chloride 102, CO2 20, BUN 48 and creatinine 4.67. Blood sugars extremely elevated to 96-409. LDH 2217. 09/25: Patient remains in the intensive care unit on mechanical ventilation with tidal volume 375, FiO2 50 and PEEP of 20. Patient is afebrile, heart rate 61, respiratory rate 36, blood pressure 102/56, pulse ox 97%. Repeat blood work reveals WBC 9.3, hemoglobin 8.5 and platelet count 171. Sodium 130, potassium 3.7, chloride 100, CO2 20, BUN 61 creatinine 5.65. Blood sugars have been walt vated up to 455. Levemir increased to 20 units twice daily, NovoLog 5 units every 6 hours and continue NovoLog scale. Patient is scheduled for hemodialysis today. Repeat chest x-ray reveals bilateral multifocal and confluent opacities. Decadron and Lovenox dosing change by pulmonary. Patient is off norepinephrine. 09/26: Patient remains in the intensive care unit on mechanical ventilation with tidal volume 375, FiO2 50 and PEEP of 15. She has been afebrile, heart rate 91, blood pressure 114/68, pulse ox 99%. teletypesetter monitor sinus rhythm. 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 Sodium 134, potassium 3.6, chloride 102, CO2 22, BUN 41 creatinine 4.21. Patient has improved blood sugars this morning running 150s and 160s. Diabetic medications were adjusted yesterday. Patient is awake and alert and interacting. Yesterday, patient had PICC line inserted by interventional radiology. Repeat chest x-ray reveals diffuse airspace infiltrates in both lung ann appear to progress slightly in the interval. 09/27: Patient remains in intensive care unit on mechanical ventilation with improvement of settings with tidal volume 375, FiO2 decreased to 40 and PEEP decreased to 10. Patient is on hemodialysis every other day and plan to remove 3 L today. Patient is more awake and alert. She is slow to respond but is able to follow simple commands. Blood sugars are running between 84 and 123. Repeat blood work reveals WBC 7.1, hemoglobin 8.1, platelets 152. Sodium 135, potassium 3.6, chloride 103, CO2 21, BUN 53 and creatinine 5.88. Repeat chest x -ray revealed cardiomegaly and pulmonary edema. Patient is on tube feedings:. Patient is not require vasopressors and is off sedation. Fecal management system remains in place for brown liquid stool. C. difficile was negative. 09/28: Patient remains on mechanical ventilation with tidal volume 375, FiO2 increased to 80 and PEEP increased to 18. Patient had a rough night was very anxious, no pain. Xanax 0.25 mg 3 times daily was added. There is concern for pulmonary embolism for which patient was started on heparin drip, she is unable to undergo CAT scan. Venous Doppler bilateral lower extremities was nondiagnostic due to extensive edema in obese patient but minimal imaging of the popliteal veins does show flow. Repeat echocardiogram has been ordered. Cefepime has also been ordered at 1 g IV piggyback every 24 hours as well as vancomycin, pharmacy dosing. Patient is back on fentanyl drip, propofol drip and norepinephrine. Blood sugars are elevated and insulin Levemir will be increased to 25 mg twice daily. Ferrlecit infusion has been ordered by nephrology for 4 days. Patient is undergoing hemodialysis today.temperature max 100.2, heart rate 134, respiratory rate 34, blood pressure 120/65, pulse ox 94%. teletypesetter monitor is sinus tachycardia. Repeat blood work reveals WBC 16.9, hemoglobin 9.7, platelet count 216. D-dimer 8.81. Sodium 134, potassium 3.8, chloride 99, CO2 25, BUN 43 and creatinine 5.36. Blood sugars in the 200s. AST 40. 09/29 Patient had declined more last 48 hours require more sedation, patient is doing hemodialysis, respiratory failure is quite bit worse this time. Patient was inquired the pain is well back on fentanyl drip. Her vent set up with PEEP is limited but higher. No new finding on culture and her chest x-ray continues shows diffuse infiltrate persistent although there is a moderate interval improvement. 09/30 patient's was seen and evaluated. PEEP was reduced to 11 as patient is maintaining good saturation at the current vent settings. 10/01 patient was seen at bedside. She is currently on assist control rate of 28 white tidal volume 350 FiO2 50% and PEEP of 10 which has been reduced by pulmonary as patient name cleaning her oxygen saturation. Arm blood gas was obtained with a pH of 7.35 pCO2 37 pO2 of 63. She remains hemodynamically stable with no need for pressors. Labs were reviewed patient's BUN is 29 cre atinine 3.93 glucose 122 albumin 2.2 sodium 131 chloride 19 hemoglobin is downtrending with a Hb of 7.3 no leukocytosis 7.1. Patient's urine output is minimal at this time. Her rate has increased to 129 and is currently on positive fluid balance even with dialysis. Last dialysis was done yesterday. Continue enteral feeding currently at goal. Antibiotic has been discontinued and continues to remain on DEXA methicillin 4 mg IV daily. 10/02 patient continues to be on trach support with mechanical ventilation. Patient was evaluated by construction safety consultant and was switched to VC control as patient was noted to be double stacking on and off throughout the night. Respiratory rate continue to 28 tidal volume increased to 400 with a PEEP for Dr. Downey. Patient is maintaining oxygen saturation 91% on the current setting. According to the nurse bedside patient saturation drops significantly or she is moved or her sedation is dropped. Patient is currently on propofol drip, fentanyl drip. She did underwent dialysis today and was able to maintain her low pressure without the need of pressors. Labs reviewed today suggest a WBC of 6.7 hemoglobin of 7.0 and d-dimer 3.9 bicarb 17 BUN 38 creatinine 4.8. LDH is 964. Sodium 1:30 likely secondary to volume overload. Urine sodium and urine osmolality ordered. Patient's glucose this morning is 146. Continue to remain on enteral feeding. Urine output is reduced. Fall catheter will be placed today. Continue to remain on dialysis. 10/03: Patient remains on mechanical ventilation and is back on propofol and fentanyl drips. Patient is currently on VC control with tidal volume 400, FiO2 55 and PEEP of 12. Patient still is not making any urine and is dialysis dependent with next treatment planned for tomorrow with removal of 3-3-1/2 L. PEG tube feedings are at goal. Fecal management system remains in place. At the time of evaluation, patient is off levophed. Repeat chest x-ray reveals stable diffuse bilateral airspace disease correlate for ARDS, pulmonary edema or diffuse pneumonia. Temperature max last evening was 101. Temperature currently 99, heart rate 106, respiratory rate 32, blood pressure 101/50, pulse ox 86%. Repeat blood work reveals WBC 6, hemoglobin 7.4, platelet count 160. D-dimer 4.05. Sodium 133, potassium 3.5, chloride 100, CO2 23, BUN 31 creatinine 3.8. Blood sugars are running between 100 and 170. Ferritin 1514. Liver function test normal. LDH 1016, C-reactive protein 13.6. Prognosis remains guarded. 10/04: Patient remains intubated on mechanical ventilation with tidal volume 400, FiO2 65, PEEP of 14. Patient continues to run fevers and repeat blood culture and urine and urine culture ordered for today. Haley catheter has been removed this patient has no significant urine output at about 20 mL per shift. BladderScan is monitored for greater than 300 and the patient is straight cathed. Hemoglobin is 6.8 and she has been ordered 41 unit of packed RBCs today. She is currently on propofol and fentanyl drips. She is scheduled for hemodialysis today. WBC 4.5, hemoglobin 6.8, platelet count 151. D-dimer 3.28. Sodium 132, potassium 4.1, chloride 100, CO2 22, BUN 37 creatinine 4.74. Blood sugars running between 97 and 110. Ferritin 1801. LDH 859. C-reactive protein 14.4. Chest x-ray reveals correlate for pneumonia, edema, ARDS. Prognosis remains guarded. 10/05: Patient remains in intensive care unit currently on mechanical ventilation with tidal volume 400, FiO2 was increased to 100 and PEEP is at 14. She continues to run fevers which have worsened with temperature max 103.1. She has been tachycardic in the 130s, blood pressure is marginal but not on vasopressors. Pulse ox currently 92%. Repeat blood work reveals WBC 5.5, hemoglobin 7.6, platelet count 190. D-dimer 2.7, ferritin 1770, LDH 932, C- reactive protein 21.4. Blood sugars are running between 100 1669. Electrolytes are normal. BUN 27 and creatinine 3.79. Pancultures were done yesterday including a straight cath for urine culture, sputum culture and blood culture. Arterial line was removed as well as midline. She is currently on propofol, fe ntanyl and started on Nimbex today. 10/06: Patient remains in the intensive care unit. Today patient in prone position and remains on mechanical ventilation with tidal volume 350, FiO2 65 and PEEP of 14. Her last documented fever was yesterday at 2 PM. Heart rate is in the 120s, respiratory rate 32, pulse ox 88-92%. CBC is unremarkable. Electrolytes are normal. BUN 30 creatinine 2.93. Blood sugars are running between 135 and 164. Cultures from October 04: Blood culture no growth, sputum culture finalized, urine culture finalized. Catheter tip culture is in process. Repeat chest x-ray shows bilateral interstitial infiltrates. Patient is on tube feedings of Nepro at goal of 30 ML's per hour. Patient underwent dialysis yesterday and is scheduled for repeat dialysis today. 10/07: Patient maintains in the intensive care unit intubated and on mechanical ventilation. She is receiving hemodialysis this morning has been every day. Plan is to remove 2-1/2 L today. Vent settings have changed today with tidal volume 350, FiO2 was increased to 100% and PEEP remains at 14. She has been continued on Nimbex, fentanyl, norepinephrine and propofol. Plan is to prone position patient following dialysis. Repeat chest x-ray reveals worsening interstitial infiltrates. BUN is 26 and creatinine 2.59. LDH 955, C-reactive protein 22.1. Prognosis remains poor. 10/08: Patient remains in intensive care unit intubated and on mechanical ventilation with tidal volume 350, FiO2 60, PEEP of 14. She is pronating today. She is scheduled for hemodialysis on a daily basis. She has been afebrile, heart rate 112, respiratory rate 36, blood pressure 161/88, pulse ox 93%. Repeat blood work reveals WBC 9.9, hemoglobin 9.1, platelet count 320. Sodium 133, potassium 5.3, chloride 100, CO2 20, BUN 29 creatinine 2.44. Blood sugar running between 102 and 139. LDH 1026, C-reactive protein 19.7. 10/09: Patient is undergoing dialysis this morning. She continues to be intubated and on mechanical ventilation with tidal volume 350, 270 and PEEP of 14. Patient is also on propofol, Nimbex, norepinephrine and fentanyl drips. Repeat chest x-ray reveals persistent bilateral multifocal and confluent opacities consistent with Covid 19. She is afebrile, heart rate 116, respiratory rate 36, blood pressure 120/65, pulse ox 91%. Repeat blood work reveals WBC 5.4, hemoglobin 9.2, platelet count 216. D-dimer 2.67, ferritin 2568, LDH 794, C- reactive protein 13.9. Blood sugars have been running 90-104. Creatinine 1.64. She is on daily dialysis treatment. 10/10: She remains in the intensive care unit. She is now out of isolation as a repeat Covid test came back negative. She remains on mechanical ventilation with tidal volume 350, FiO2 70 and PEEP of 14. Patient is also on Nimbex, propofol, norepinephrine, fentanyl drips. She is on PEG tube feedings at goal and tolerating well. Repeat blood work reveals WBC 7.8, hemoglobin 7.5, platelet count 267. Sodium 139, potassium 3.9, chloride 109, CO2 20, BUN 20 creatinine 1.29. Blood sugars are running between 76 and 102. Scheduled Nov oLog decreased to 3 units. Repeat chest x-ray reveals moderate cardiomegaly and continued pulmonary edema. Slight interval improvement. Patient is continued on daily hemodialysis. 10/11: Patient remains in intensive care unit on mechanical ventilation with tidal volume 325, FiO2 70, PEEP 14. She is currently being prone. She underwent hemodialysis this morning with removal of 4 L of fluid with plan to continue daily treatment. She is currently on Nimbex, fentanyl and propofol. No vasopressor at this time. Fecal management system remains in place. She is on tube feedings currently at hold due to prone positioning. Patient has been afebrile, heart rate 116, respiratory rate 36, blood pressure 100/58, pulse ox 93-96%. Repeat blood work reveals WBC 9.3, hemoglobin 8.1, platelet count 276. Sodium 136, potassium 4.3, chloride 103, CO2 20, BUN 20 creatinine 1.14. Blood sugars running between 133 and 202. 10/12: Patient remains in the intensive care unit. She is undergoing hemodial ysis this morning. She's been afebrile, heart rate in the 120s, respiratory rate 32, blood pressure 102/65. She is not on vasopressors. She is continued on Nimbex, fentanyl and propofol. Vent settings are currently tidal volume 325, FiO2 70, PEEP 14. Total platelet count 273. Sodium 133, potassium 4.7, chloride 100, CO2 19, BUN 21 creatinine 0.91. Blood sugars running between 121 and 143. 10/13: Patient remain in the ICU she is on hemodialysis daily, she is still on the vent with a PEEP of 14 and FiO2 of 70. Her oxygenation is marginal pulse rate still high. Patient had scratched cornea was seen in ophthalmology decided to keep doing eyedrops along with eye patch at this point. Prognosis still very bad this point. 10/14: She remains on mechanical ventilation with tidal volume 325, FiO2 70% and PEEP of 14. She did require label fed last evening for about 6 hours. She did not tolerate pronating yesterday. She is undergoing dialysis this morning with plan for removal of 4 L. Blood sugars have been low and IV fluids changed to D10 until blood sugars have recovered. Levemir and scheduled NovoLog discontinued. Patient is on tube feedings at goal there's been no change in t his. 10/15 patient remains on mechanical ventilation in the intensive care unit. FiO2 still at 70%, PEEP of 18. Blood sugars have improved since medications were adjusted. White blood cells 33.9, hemoglobin 8.5, sodium 135, BUN 19, creatinine 0.96. Patient to receive dialysis again today. Patient did run a low-grade fever throughout the night and pro calcitonin level is ordered. Chest x-ray showed continued diffuse bilateral airspace disease. Patient remains on tube feedings at goal. 10/16: Patient remains on mechanical ventilation with tidal volume 300, FiO2 70, PEEP of 15. Fecal management system is out. She is currently on low dose of norepinephrine. She is also on fentanyl drip, propofol drip, rocuronium drip. Heart rate is running in the 130s, sinus rhythm, blood pressure 121/63, pulse ox 95%. Patient is been afebrile. Repeat blood work reveals WBC 18.9, hemoglobin 7.5, platelet count 291. Sodium 135, potassium 4.2, chloride 101, CO2 19, BUN 25 and creatinine 1.36. Blood sugars are running between 143 and 199. Patient is on scale insulin only. Repeat chest x-ray reveals persistent bilateral multifocal and completed opacities consistent with Covid 19. 10/17: Patient remains on mechanical ventilation with tidal volume 300, FiO2 50, PEEP of 14. She is currently receiving hemodialysis. The patient is having yellow-colored drainage from the trach site. This is going to be culture today. Repeat blood work reveals WBC of 24, hemoglobin 7.3 and platelet count 310. Sodium 136, potassium 4.1, chloride 101, CO2 19, BUN 24 creatinine 1.43. Blood sugar 139. Capillary blood glucose running 147 and 189. Repeat chest x-ray is unchanged. Patient had increased respiratory rate 40s and 50s with oxygen saturation of 87 and now was increased and Seroquel added this morning. Prognosis remains guarded. 10/18: Patient remains on mechanical ventilation with tidal volume 300, FiO2 60, PEEP has been decreased to 12. Patient will need a PEEP of 8 in order to tr ansfer to long-term care. She is currently on fentanyl drip and Precedex drip. Patient is tracking when her name is stated. She seems to be slightly improved today. Patient has been afebrile, heart rate 106, respiratory rate 32, blood pressure 110/61, pulse ox 98%. Repeat blood work reveals WBC 30.3, hemoglobin 7.2, platelet count 350. Sodium 139, potassium 4.2, chloride 103, CO2 20, BUN 23 creatinine 1.79. Blood sugars are increasing running up 299. Patient will be placed on Levemir. Secretions from tracheotomy sent for culture and in process. She is currently undergoing hemodialysis. 10/19, patient still is in the vent with tracheostomy, PEEP of 12, left radial arterial line line was performed today. Patient has Acinetobacter growing on sputum cultures, still with leukocytosis however it's improving, IV cefepime was started today, hemodialysis performed today, and repeat again in the morning per Dr. Evans's recommendation, 1-1.5 L ultrafiltration creatinine 1.38, wbc count 19.9 hemoglobin 7.2 has hyperglycemia now without hypoglycemia, increase Levemir to 8 units 10/20 patient remains in ICU, still with ventilatory support, PEEP of 11, no fevers, blood sugars remains to be elevated, however his blood sugars are elevated with the maximize titration of enteral nutrition, vital AF 1.2 ingris per mL, approximately 1600 ingris per day, receiving at least 1400 mL per day, with increasing Levemir to 16 units, and NovoLog coverage at 4 units every 6 hours, while on tube feedings. Still on IV Decadron 2 mg daily, creatinine at 1.88, dialysis scheduled for Friday, and plan for dialysis holiday on Friday. REVIEW OF SYSTEMS Unable to obtain due to mechanical ventilation. Objective - Vital Signs Vital signs: Vital Signs Temp 98.6 F 10/20/20 12:00 Pulse 104 H 10/20/20 13:00 Resp 40 H 10/20/20 13:00 BP 134/78 10/20/20 13:00 Pulse Ox 94 L 10/20/20 13:00 Intake & Output 10/19/20 10/20/20 10/20/20 18:59 06:59 18:59 Intake Total 9802.462 2536.525 1200.653 Output Total 4000 4000 Balance -2917.138 1533.525 -2799.347 Weight 111.7 kg 111.7 kg Intake: IV 166 320 80 0.9 Normal Saline 36 Pressure Bag ACETAMINOPHEN IV (For NPO 100 ) 1,000 mg In Empty Bag 1 bag @ 400 mls/hr IVPB ONCE ONE Rx#:[id number] Sodium Chloride 0.9% 500 130 220 80 ml 500 ml @ 10 mls/hr IV .Q24H [facility] Rx#:[id number] Intake, IV Titration 396.862 397.525 233.653 Amount Dexmedetomidine/0.9% NaCl 100 191.466 95.4 (Pmx) 400 mcg In Empty Bag 1 bag @ Titrate IV . Q0M [facility] Rx#:[id number] Norepinephrine 8 mg In 40.129 56.756 17.445 Sodium Chloride 0.9% 250 ml @ 0.05 MCG/KG/MIN 11. 136 mls/hr IV .[id number] [facility] Rx#:[id number] fentaNYL (PF) 2,500 mcg 256.733 149.303 120.808 In Sodium Chloride 0.9% 200 ml @ Per Protocol IV .Q0M [facility] Rx#:[id number] Tube Feeding 430 656 392 Blood Product 0 310 Rc As-1 Unit 0 310 [id number] Other 90 160 185 Output: Urine 0 Hemodialysis 4000 4000 Other: # Voids 0 # Bowel Movements 1 1 ABP, PAP, CO, CI - Last Documented Arterial Blood Pressure 136/76 - EENT Eyes: Present: PERRLA - Respiratory Respiratory: bilateral: CTA, rhonchi, negative: prolonged expiration, prolonged inspiration - Cardiovascular Heart sounds: normal: S1, S2 Abnormal Heart Sounds: Present: systolic murmur. Absent: diastolic murmur, rub, S3 Gallop, S4 Gallop, click, other - Gastrointestinal General gastrointestinal: Present: normal bowel sounds, soft - Labs CBC & Chem 7: 10/20/20 02:07 10/20/20 02:07 Labs: Abnormal Lab Results - Last 24 Hours (Table) 10/19/20 10/20/20 10/20/20 Range/Units 18:07 00:01 02:07 WBC 22.2 H (3.8-10.6) k/uL RBC 2.25 L (3.80-5.40) m/uL Hgb 6.3 L* (11.4-16.0) gm/dL Hct 20.3 L (34.0-46.0) % RDW 17.9 H (11.5-15.5) % Neutrophils # (Manual) 15.90 H (1.3-7.7) k/uL Lymphocytes # (Manual) 0.89 L (1.0-4.8) k/uL Monocytes # (Manual) 1.78 H (0-1.0) k/uL Metamyelocytes # (Man) 1.55 H (0) k/uL Myelocytes # (Manual) 2.00 H (0) k/uL ABG pH (7.35-7.45) ABG pCO2 (35-45) mmHg ABG Total CO2 (19-24) mmol/L BUN (7-17) mg/dL Creatinine (0.52-1.04) mg/dL Glucose (74-99) mg/dL POC Glucose (mg/dL) 283 H 363 H (75-99) mg/dL Crossmatch 10/20/20 10/20/20 10/20/20 Range/Units 02:07 04:14 06:24 WBC (3.8-10.6) k/uL RBC (3.80-5.40) m/uL Hgb (11.4-16.0) gm/dL Hct (34.0-46.0) % RDW (11.5-15.5) % Neutrophils # (Manual) (1.3-7.7) k/uL Lymphocytes # (Manual) (1.0-4.8) k/uL Monocytes # (Manual) (0-1.0) k/uL Metamyelocytes # (Man) (0) k/uL Myelocytes # (Manual) (0) k/uL ABG pH (7.35-7.45) ABG pCO2 (35-45) mmHg ABG Total CO2 (19-24) mmol/L BUN 37 H (7-17) mg/dL Creatinine 1.88 H (0.52-1.04) mg/dL Glucose 331 H (74-99) mg/dL POC Glucose (mg/dL) 366 H (75-99) mg/dL Crossmatch See Detail 10/20/20 10/20/20 Range/Units 06:25 11:33 WBC (3.8-10.6) k/uL RBC (3.80-5.40) m/uL Hgb (11.4-16.0) gm/dL Hct (34.0-46.0) % RDW (11.5-15.5) % Neutrophils # (Manual) (1.3-7.7) k/uL Lymphocytes # (Manual) (1.0-4.8) k/uL Monocytes # (Manual) (0-1.0) k/uL Metamyelocytes # (Man) (0) k/uL Myelocytes # (Manual) (0) k/uL ABG pH 7.32 L (7.35-7.45) ABG pCO2 49 H (35-45) mmHg ABG Total CO2 27 H (19-24) mmol/L BUN (7-17) mg/dL Creatinine (0.52-1.04) mg/dL Glucose (74-99) mg/dL POC Glucose (mg/dL) 246 H (75-99) mg/dL Crossmatch Microbiology - Last 24 Hours (Table) 10/17/20 10:55 Gram Stain - Final Trachea Wound Culture - Final Acinetobacter ivonne/haemol Assessment and Plan Plan: ASSESSMENT AND PLAN 1. Acute hypoxic respiratory failure secondary to Covid 19 pneumonia and possible bacterial pneumonia. Patient was intubated on September 11. She is status post dose of Remdesivir and 1 dose of Tocilizumab. Continue Ventolin inhaler 4 times daily, Symbicort twice daily, Decadron 2 mg IV daily, Lovenox 30 mg subcu daily, supplements. Status post PEG tube and trach 09/18/20. Isolation prec autions removed. Prone positioning held due to intolerance. 2. Acute diabetic ketoacidosis secondary to Covid 19 pneumonia, uncontrolled with hyperglycemia. Levemir 6 units daily resumed and continue NovoLog scale. 3. Metabolic encephalopathy secondary to Covid 19 and DKA. 4. Sepsis and septic shock secondary to Covid 19 pneumonia with multiorgan failure. Continue as in #1. Trach drainage culture to be obtained. 5. Acute metabolic acidosis secondary to acute DKA, Covid 19 and acute kidney injury. Sodium bicarb 650 mg 3 times daily, Renvela 1600 mg 3 times daily.. 6. Diabetes mellitus type 2 uncontrolled with A1c 13.6. Continue as above. Increase to 16 units Levemir, with scale, 4 units NovoLog every 6 hours enteral feeds, vital AF, 1.2 ingris per mL, calculated at 1600 ingris per day 7. Hypophosphatemia status post replacement. On Renvela 8. Hyperkalemia secondary to DKA, resolved. 9. Sinus tachycardia secondary to sepsis, volume deficiency. 10. Acute kidney injury secondary to ATN secondary to Covid 19 and DKA currently on the soria for catheter has been discontinued Continue daily hemodialysis. Permanent dialysis catheter placed. 11. Acinetobacter baumanihaemolytica pneumonia versus MRSA pneumonia. Completed course of antibiotics. 12. Hypertension. 13. Morbid obesity with BMI of 53. 1600 ingris per day with enteral feedings, vital AF 1.2 14. DVT prophylaxis. Lovenox. 15. GI prophylaxis. Protonix 40 mg IV push daily. 16. Iron deficiency anemia, on iron and aspirin 40 g every 7 days CODE STATUS: Full code Prognosis poor. DISCHARGE PLAN [facility] probably select specialty Impression and plan of care have been directed as dictated by the signing physician. Kimberly Boswell nurse practitioner acting as scribe for signing physician.
[2020-10-20 17:33] LABS: Glucose,Whole Blood 331 mg/dL (75-99)
[2020-10-20 23:59] LABS: Glucose,Whole Blood 379 mg/dL (75-99)
[2020-10-21] MEDS: INSULIN ASPART (NovoLOG) 100 UNIT/ML VIAL SQ SCH ×8 (00:22→17:31)
[2020-10-21] MEDS: HYDROmorphone 0.5 MG/0.5 ML SYRINGE IVP PRN ×2 (00:59→12:58)
[2020-10-21] MEDS: DEXMEDETOMIDINE/0.9% NACL(PMX) 400 MCG in EMPTY BAG 1 BAG IV SCH ×5 (02:20→22:46)
[2020-10-21 05:29] LABS: Anisocytosis Slight; HCT 23.8 % (34.0-46.0); HGB 7.1 gm/dL (11.4-16.0); Hypochromasia Marked; MCH 27.2 pg (25.0-35.0); MCHC 29.9 g/dL (31.0-37.0); MCV 90.7 fL (80.0-100.0); Mean Platelet Volume 9.5; Platelet Count 222 k/uL (150-450); Poikilocytosis Moderate; RBC 2.62 m/uL (3.80-5.40); RDW 17.7 % (11.5-15.5)
[2020-10-21 05:34] LABS: Albumin 2.4 g/dL (3.5-5.0); Calcium 9.4 mg/dL (8.4-10.2); Potassium 3.9 mmol/L (3.5-5.1); Total Bilirubin 0.6 mg/dL (0.2-1.3)
[2020-10-21 05:39] LABS: ABG Base Excess 5.3 mmol/L; ABG HCO3 30 mmol/L (21-25); ABG Oxygen Saturation 84.6 % (94-97); ABG PCO2 49 mmHg (35-45); ABG TCO2 32 mmol/L (19-24); Allen Test Performed? Yes
[2020-10-21 05:40] LABS: ABG PO2 51 mmHg (83-108)
[2020-10-21 05:57] LABS: Glucose,Whole Blood 398 mg/dL (75-99)
[2020-10-21 06:18] LABS: Band Neutrophils % 2 %; Metamyelocytes # (M) 0.75 k/uL (0); Metamyelocytes % 5 %; Monocytes # (M) 1.35 k/uL (0-1.0); Myelocytes # (M) 0.45 k/uL (0); Myelocytes % 3 %; Neutrophils % (M) 77 %; Nucleated Red Blood Cells 0 /100 WBC (0-0); Total Cells Counted 200
[2020-10-21 06:19] LABS: Polychromasia Present
[2020-10-21 06:22] LABS: Basophilic Stippling Present
--- NOTE | 2020-10-21 06:34 | XR ---
EXAMINATION TYPE: XR chest 1V portable DATE OF EXAM: 10/21/2020 CLINICAL HISTORY: Difficulty breathing progress study. TECHNIQUE: Single AP portable semiupright view of the chest is obtained. COMPARISON: Chest x-ray from one day earlier and older studies FINDINGS: Stable tracheostomy tube and right internal jugular large bore dialysis catheter. Stable r ight-sided PICC line. Bilateral fairly confluent opacities redemonstrated. Heart size stable and mildly enlarged. Osseous s tructures are intact. IMPRESSION: Persistent bilateral confluent opacities consistent with edema and/or infiltrates. Consid er ARDS. No significant change from one day earlier.
[2020-10-21] MEDS: NOREPINEPHRINE 8 MG in SODIUM CHLORIDE 0.9% 250 ML IV SCH (06:38)
[2020-10-21] MEDS: SEVELAMER 800 MG TAB PO SCH ×3 (06:42→17:31)
[2020-10-21] MEDS ORDERED: INSULIN DETEMIR (LEVEMIR) 100 UNIT/ML SYR SQ SCH (07:00)
[2020-10-21] MEDS: ALBUTEROL HFA INHALER INHALATION SCH ×4 (07:40→18:59)
--- NOTE | 2020-10-21 08:44 | P.PN ---
Subjective Patient is seen in follow-up for acute kidney injury. Oliguric. Status post tracheostomy and PEG tube placement this admission. Receiving tube feeding. Currently on 60% FiO2. Receiving daily hemodialysis. Vital signs: Stable. General: The patient appeared well nourished and normally developed. HEENT: Tracheostomy noted. LUNGS: Breath sounds decreased. HEART: Regular rate and rhythm. Abdomen: Soft, no distention. EXTREMITITES: 1+ edema. Objective - Vital Signs Vital signs: Vital Signs Temp 98.5 F 10/21/20 04:00 Pulse 116 H 10/21/20 07:30 Resp 33 H 10/21/20 07:30 BP 124/73 10/21/20 07:30 Pulse Ox 90 L 10/21/20 07:30 Intake & Output 10/20/20 10/21/20 10/21/20 18:59 06:59 18:59 Intake Total 4533.957 5993.821 76 Output Total 4000 0 0 Balance -2359.347 1181.821 76 Weight 111.7 kg 106.7 kg Intake: IV 160 240 20 Sodium Chloride 0.9% 500 160 240 20 ml 500 ml @ 10 mls/hr IV .Q24H [facility] Rx#:[id number] Intake, IV Titration 233.653 179.821 Amount Dexmedetomidine/0.9% NaCl 95.4 (Pmx) 400 mcg In Empty Bag 1 bag @ Titrate IV . Q0M [facility] Rx#:[id number] Dexmedetomidine/0.9% NaCl 179.821 (Pmx) 400 mcg In Empty Bag 1 bag @ Titrate IV . Q0M [facility] Rx#:[id number] Norepinephrine 8 mg In 17.445 Sodium Chloride 0.9% 250 ml @ 0.05 MCG/KG/MIN 11. 136 mls/hr IV .[id number] [facility] Rx#:[id number] fentaNYL (PF) 2,500 mcg 120.808 In Sodium Chloride 0.9% 200 ml @ Per Protocol IV .Q0M [facility] Rx#:[id number] Tube Feeding 672 672 56 Blood Product 310 Rc As-1 Unit 310 [id number] Other 265 90 Output: Urine 0 0 0 Hemodialysis 4000 Other: # Voids 0 # Bowel Movements 1 ABP, PAP, CO, CI - Last Documented Arterial Blood Pressure 136/76 - Labs CBC & Chem 7: 10/21/20 04:47 10/21/20 04:47 Labs: Abnormal Lab Results - Last 24 Hours (Table) 10/20/20 10/20/20 10/20/20 Range/Units 04:14 11:33 17:31 WBC (3.8-10.6) k/uL RBC (3.80-5.40) m/uL Hgb (11.4-16.0) gm/dL Hct (34.0-46.0) % MCHC (31.0-37.0) g/dL RDW (11.5-15.5) % Neutrophils # (Manual) (1.3-7.7) k/uL Lymphocytes # (Manual) (1.0-4.8) k/uL Monocytes # (Manual) (0-1.0) k/uL Metamyelocytes # (Man) (0) k/uL Myelocytes # (Manual) (0) k/uL ABG pCO2 (35-45) mmHg ABG pO2 (83-108) mmHg ABG HCO3 (21-25) mmol/L ABG Total CO2 (19-24) mmol/L ABG O2 Saturation (94-97) % BUN (7-17) mg/dL Creatinine (0.52-1.04) mg/dL Glucose (74-99) mg/dL POC Glucose (mg/dL) 246 H 331 H (75-99) mg/dL Total Protein (6.3-8.2) g/dL Albumin (3.5-5.0) g/dL Crossmatch See Detail 10/20/20 10/21/20 10/21/20 Range/Units 23:58 04:47 04:47 WBC 15.0 H (3.8-10.6) k/uL RBC 2.62 L (3.80-5.40) m/uL Hgb 7.1 L (11.4-16.0) gm/dL Hct 23.8 L (34.0-46.0) % MCHC 29.9 L (31.0-37.0) g/dL RDW 17.7 H (11.5-15.5) % Neutrophils # (Manual) 11.80 H (1.3-7.7) k/uL Lymphocytes # (Manual) 0.60 L (1.0-4.8) k/uL Monocytes # (Manual) 1.35 H (0-1.0) k/uL Metamyelocytes # (Man) 0.75 H (0) k/uL Myelocytes # (Manual) 0.45 H (0) k/uL ABG pCO2 (35-45) mmHg ABG pO2 (83-108) mmHg ABG HCO3 (21-25) mmol/L ABG Total CO2 (19-24) mmol/L ABG O2 Saturation (94-97) % BUN 45 H (7-17) mg/dL Creatinine 1.96 H (0.52-1.04) mg/dL Glucose 360 H (74-99) mg/dL POC Glucose (mg/dL) 379 H (75-99) mg/dL Total Protein 5.0 L (6.3-8.2) g/dL Albumin 2.4 L (3.5-5.0) g/dL Crossmatch 10/21/20 10/21/20 Range/Units 05:34 05:45 WBC (3.8-10.6) k/uL RBC (3.80-5.40) m/uL Hgb (11.4-16.0) gm/dL Hct (34.0-46.0) % MCHC (31.0-37.0) g/dL RDW (11.5-15.5) % Neutrophils # (Manual) (1.3-7.7) k/uL Lymphocytes # (Manual) (1.0-4.8) k/uL Monocytes # (Manual) (0-1.0) k/uL Metamyelocytes # (Man) (0) k/uL Myelocytes # (Manual) (0) k/uL ABG pCO2 49 H (35-45) mmHg ABG pO2 51 L* (83-108) mmHg ABG HCO3 30 H (21-25) mmol/L ABG Total CO2 32 H (19-24) mmol/L ABG O2 Saturation 84.6 L (94-97) % BUN (7-17) mg/dL Creatinine (0.52-1.04) mg/dL Glucose (74-99) mg/dL POC Glucose (mg/dL) 398 H (75-99) mg/dL Total Protein (6.3-8.2) g/dL Albumin (3.5-5.0) g/dL Crossmatch Microbiology - Last 24 Hours (Table) 10/17/20 10:55 Anaerobic Culture - Final Trachea Anaerobic Gm Negative Bacilli Assessment and Plan Plan: Assessment: 1. Acute kidney injury secondary to ATN secondary to COVID-19 and DKA. Baseline creatinine is near 1. Started on hemodialysis on September 14. Has p-cath. Oliguric. No hydronephrosis noted on kidney ultrasound. 2. DKA s/p insulin drip and IV fluids. 3. Acute hypoxic respiratory failure secondary to COVID-19 pneumonia. Status p ost tracheostomy this admission. 4. Metabolic acidosis secondary to acute kidney injury and DKA s/p bicarb drip. Maintained on oral bicarbonate. 5. Hyponatremia, hypervolemic. Stable. Blood sugar stable. 6. Hyperphosphatemia secondary to acute kidney injury. Maintained on Renvela. 7. Anemia of chronic illness and kidney disease. Maintained on Aranesp. Iron deficiency noted - s/p iv iron. 8. Fluid overload. Improving with daily ultrafiltration. Plan: Hemodialysis today. Maintain tube feeds. Avoid nephrotoxins. Continue to monitor renal function and urine output. Monitor for renal recovery. Wean FiO2. Stop oral bicarbonate
--- NOTE | 2020-10-21 09:54 | P.PN ---
Subjective Progress Note Date: 10/21/20 10/20/2020, the patient is finally awake and responsive and communicating. She can respond. She can smile. She can blink her eyes and look around and tract things and trying to smile. Overall, she seems to be gradually recovering. She has been taken off the fentanyl drip. She is only on Precedex drip running at 0.7 micrograms per kilogram per hour. At time, she gets worked up and restless and tachypneic and tachycardic. Yet if left unstimulated, she will settle down. She remains on a mechanical ventilator. The current PEEP is down to 10 with FiO2 of 50% this morning and a tidal volume of 300 and a rate of 32. Morning blood gases showed a pO2 of 50 with a pCO2 of 49 and pH of 7.4 and based on that I brought up the FiO2 down to 60% and the current saturations around 93%. Her chest x-ray still showing diffuse bilateral pulmonary infiltrates, unchanged. Nevertheless, the rest or secretions around the tracheostomy stoma is improved considerably. The cultures were positive for Acinetobacter patient is currently on IV cefepime. White second is improving is currentlythe white cell count is down to 15. She is tolerating her enteral feeding for nutritional support. The patient is currently on vital AF running at the rate of 56 mL an hour without any major difficulties. She is undergoing daily hemodialysis. Despite daily dialysis, she continues to have some degree of fluid retention overload although improving. Edema in the upper extremities improved. She is extremely weak. Physical therapy is involved in the case and essentially doing passive range of motion. She is afebrile. No major electronic disturbances. No other complaints otherwise for now. She is post prolonged respiratory failure due to COVID-19 related ARDS/pneumonia.the blood sugars are slightly elevated. I'm making recommendations to discontinue the Decadron and increased the Levemir dose for a tighter blood sugar control. Objective - Vital Signs Vital signs: Vital Signs Temp 98.7 F 10/21/20 08:00 Pulse 117 H 10/21/20 09:30 Resp 34 H 10/21/20 09:00 BP 137/89 10/21/20 09:30 Pulse Ox 94 L 10/21/20 09:30 Intake & Output 10/20/20 10/21/20 10/21/20 18:59 06:59 18:59 Intake Total 2746.369 5246.821 176 Output Total 4000 0 0 Balance -2359.347 1181.821 176 Weight 111.7 kg 106.7 kg Intake: IV 160 240 20 Sodium Chloride 0.9% 500 160 240 20 ml 500 ml @ 10 mls/hr IV .Q24H [facility] Rx#:[id number] Intake, IV Titration 233.653 179.821 100 Amount Dexmedetomidine/0.9% NaCl 95.4 (Pmx) 400 mcg In Empty Bag 1 bag @ Titrate IV . Q0M [facility] Rx#:[id number] Dexmedetomidine/0.9% NaCl 179.821 100 (Pmx) 400 mcg In Empty Bag 1 bag @ Titrate IV . Q0M [facility] Rx#:[id number] Norepinephrine 8 mg In 17.445 Sodium Chloride 0.9% 250 ml @ 0.05 MCG/KG/MIN 11. 136 mls/hr IV .[id number] [facility] Rx#:[id number] fentaNYL (PF) 2,500 mcg 120.808 In Sodium Chloride 0.9% 200 ml @ Per Protocol IV .Q0M [facility] Rx#:[id number] Tube Feeding 672 672 56 Blood Product 310 Rc As-1 Unit 310 [id number] Other 265 90 Output: Urine 0 0 0 Hemodialysis 4000 Other: # Voids 0 # Bowel Movements 1 ABP, PAP, CO, CI - Last Documented Arterial Blood Pressure 136/76 - Exam GENERAL EXAM: Sedated, 35-year-old female patient, on assist control mode of ventilation , sedated with a combination of Precedex Opens up her eyes. Synchronous with the mechanical ventilator. No agitation. Does not follow any commands. HEAD: Normocephalic/atraumatic. EYES: Normal reaction of pupils, equal size. Conjunctiva pink, sclera white. NOSE: Clear with pink turbinates. THROAT: No erythema or exudates. NECK: Right internal jugular hemodialysis catheter placed. Tracheostomy tube secured in place. The patient has Bivona #8. No masses, no JVD, no thyroid enlargement, no adenopathy. CHEST: No chest wall deformity. Symmetrical expansion. LUNGS: Equal air entry with bilateral crackles CVS: Regular rate and rhythm, normal S1 and S2, no gallops, no murmurs, no rubs ABDOMEN: PEG tube exit site clean and dry. No hepatosplenomegaly, normal bowel sounds, no guarding or rigidity. EXTREMITIES: No clubbing, no edema, no cyanosis, 2+ pulses and upper and lower extremities. MUSCULOSKELETAL: Muscle strength and tone normal. SPINE: No scoliosis or deformity SKIN: No rashes CENTRAL NERVOUS SYSTEM: Patient is sedated with precedex - Labs CBC & Chem 7: 10/21/20 04:47 10/21/20 04:47 Labs: Abnormal Lab Results - Last 24 Hours (Table) 10/20/20 10/20/20 10/20/20 Range/Units 11:33 17:31 23:58 WBC (3.8-10.6) k/uL RBC (3.80-5.40) m/uL Hgb (11.4-16.0) gm/dL Hct (34.0-46.0) % MCHC (31.0-37.0) g/dL RDW (11.5-15.5) % Neutrophils # (Manual) (1.3-7.7) k/uL Lymphocytes # (Manual) (1.0-4.8) k/uL Monocytes # (Manual) (0-1.0) k/uL Metamyelocytes # (Man) (0) k/uL Myelocytes # (Manual) (0) k/uL ABG pCO2 (35-45) mmHg ABG pO2 (83-108) mmHg ABG HCO3 (21-25) mmol/L ABG Total CO2 (19-24) mmol/L ABG O2 Saturation (94-97) % BUN (7-17) mg/dL Creatinine (0.52-1.04) mg/dL Glucose (74-99) mg/dL POC Glucose (mg/dL) 246 H 331 H 379 H (75-99) mg/dL Total Protein (6.3-8.2) g/dL Albumin (3.5-5.0) g/dL 10/21/20 10/21/20 10/21/20 Range/Units 04:47 04:47 05:34 WBC 15.0 H (3.8-10.6) k/uL RBC 2.62 L (3.80-5.40) m/uL Hgb 7.1 L (11.4-16.0) gm/dL Hct 23.8 L (34.0-46.0) % MCHC 29.9 L (31.0-37.0) g/dL RDW 17.7 H (11.5-15.5) % Neutrophils # (Manual) 11.80 H (1.3-7.7) k/uL Lymphocytes # (Manual) 0.60 L (1.0-4.8) k/uL Monocytes # (Manual) 1.35 H (0-1.0) k/uL Metamyelocytes # (Man) 0.75 H (0) k/uL Myelocytes # (Manual) 0.45 H (0) k/uL ABG pCO2 49 H (35-45) mmHg ABG pO2 51 L* (83-108) mmHg ABG HCO3 30 H (21-25) mmol/L ABG Total CO2 32 H (19-24) mmol/L ABG O2 Saturation 84.6 L (94-97) % BUN 45 H (7-17) mg/dL Creatinine 1.96 H (0.52-1.04) mg/dL Glucose 360 H (74-99) mg/dL POC Glucose (mg/dL) (75-99) mg/dL Total Protein 5.0 L (6.3-8.2) g/dL Albumin 2.4 L (3.5-5.0) g/dL 10/21/20 Range/Units 05:45 WBC (3.8-10.6) k/uL RBC (3.80-5.40) m/uL Hgb (11.4-16.0) gm/dL Hct (34.0-46.0) % MCHC (31.0-37.0) g/dL RDW (11.5-15.5) % Neutrophils # (Manual) (1.3-7.7) k/uL Lymphocytes # (Manual) (1.0-4.8) k/uL Monocytes # (Manual) (0-1.0) k/uL Metamyelocytes # (Man) (0) k/uL Myelocytes # (Manual) (0) k/uL ABG pCO2 (35-45) mmHg ABG pO2 (83-108) mmHg ABG HCO3 (21-25) mmol/L ABG Total CO2 (19-24) mmol/L ABG O2 Saturation (94-97) % BUN (7-17) mg/dL Creatinine (0.52-1.04) mg/dL Glucose (74-99) mg/dL POC Glucose (mg/dL) 398 H (75-99) mg/dL Total Protein (6.3-8.2) g/dL Albumin (3.5-5.0) g/dL Microbiology - Last 24 Hours (Table) 10/17/20 10:55 Anaerobic Culture - Final Trachea Anaerobic Gm Negative Bacilli Assessment and Plan Plan: 1 Acute hypoxic respiratory failure secondary to COVID-19 pneumonia/ARDS, transferred to the intensive care unit on 09/11/2020 and intubated and placed on mechanical ventilator on 09/11/2020. Patient received 1 dose of Remdesivir on 09/11/2020, however based on her quick progression of her hypoxic respiratory failure she received Tocilizumab 800 mg on 09/11/2020. Tracheostomy and PEG tube placed on 09/18/2020. Patient remains in ARDS with diffuse infiltrates. We are still allowing permissive hypercapnia, low tidal volume ventilation. He is showing improvement in oxygenation. Chest x-ray findings are stable. patient is currently on a PEEP of 10 with an FiO2 of 60%. She is still on a low tidal volume of 300. Blood gases was noted. Chest x-ray was noted. Respiratory secretions are less and the patient was cultured to have acid Enterobacter currently on IV cefepime. 2 Acute kidney injury related to ATN, nephrology has been consulted, ultrasound of the kidneys showed no evidence of hydronephrosis. Patient was initiated on hemodialysis on 09/14/2020. Permacath placed 09/20/2020. Patient is undergoing daily dialysis. 3 diabetes mellitus, insulin-dependent and the patient is currently on insulin sliding scale coverage with NovoLog, along with Levemir insulin 4 obesity with a BMI is down to 50 5 lovenox prophylaxis dose of 30 mg subcu every 24 hours 6 hypotension, recovered and the patient is currently on no pressors 7 Corneal injury, punctate keratitis, left eye 8 Anemia of chronic disease, post 1 unit rbc on 10/04/2020 9 Generalized anxiety disorder. 10 hypertriglyceridemia, currently off propofol and will utilizing a combination of Precedex and fentanyl. 11 leukocytosis, improving 12 Acinetobacter s in the respiratory secretions around the tracheostomy tube. Currently on IV cefepime.tach on is improving and the rest or secretions improved considerably. 13 encephalopathy/delerium , currently on Seroquel. the patient was taken off the fentanyl and the patient is only on Precedex for now. 14 sinus tachycardia Plan Cardizem 60 mg by mouth every 8 hours Increase the Levemir insulin up to 30 units a day along with signs the coverage Discontinue Decadron Wean Precedex gradually Continue Seroquel 100 mg by mouth twice a day No other ventilator changes for now Continue IV cefepime regarding the Acinetobacter infection. A total of 7-10 day course Enteral feeding for nutritional support Dialysis today Monitor neurologic functions Physical therapy for passive range of motion Lovenox 30 mg subcu every 24 hours Continue enteral feeding for nutritional support,vital HP adjustments were done on the dosing of enteral feeding and nutritional support Condition is critical. This is a critically care evaluation that was on a more than 30 minutes. Time with Patient: Greater than 30
[2020-10-21] MEDS ORDERED: INSULIN DETEMIR (LEVEMIR) 100 UNIT/ML SYR SQ ONE (10:30)
[2020-10-21 10:35] LABS: Glucose,Whole Blood 256 mg/dL (75-99)
[2020-10-21] MEDS: CHOLECALCIFEROL 25 MCG (1000 IU) TABLET PO SCH (10:37)
[2020-10-21] MEDS: ENOXAPARIN 30 MG/0.3 ML SYRINGE SQ SCH (10:37)
[2020-10-21] MEDS: ASCORBIC ACID 500 MG TAB PO SCH ×2 (10:37→21:08)
[2020-10-21] MEDS: CHLORHEXIDINE GLUCONATE 15 ML CUP MUCOUS MEM SCH ×2 (10:37→21:09)
[2020-10-21] MEDS: QUEtiapine 100 MG TAB PO SCH ×2 (10:38→21:08)
[2020-10-21] MEDS: SODIUM CHLORIDE 0.9% 500 ML 500 ML IV SCH (10:38)
[2020-10-21] MEDS: DILTIAZEM ORAL 30 MG TAB PO SCH ×2 (10:39→21:08)
[2020-10-21 11:46] LABS: Glucose,Whole Blood 260 mg/dL (75-99)
[2020-10-21] MEDS: PANTOPRAZOLE 40 MG/10 ML VIAL IVP SCH (12:41)
[2020-10-21] MEDS: CEFEPIME 1 GM in SODIUM CHLORIDE 0.9% 50 ML IVPB SCH (14:17)
--- NOTE | 2020-10-21 14:42 | P.PN ---
Subjective Progress Note Date: 10/21/20 CHIEF COMPLAINT: Ventral dependent respiratory failure HISTORY OF PRESENT ILLNESS: The patient is a 35-year-old female with coronavirus pneumonia, ventilator dependent respiratory failure and tracheostomy and gastrostomy tube placement. She is on tube feeds. She is on hemodialysis. She is intensive care unit. She had a bowel movement. Her tube feeds are at goal. ROS: Recent fevers of 102.8F 10/19/2020. Temperature maximum 101.3F yesterday. No new chest pain. Morbidly obese, BMI 47.5 PHYSICAL EXAM: VITAL SIGNS: Reviewed CONSTITUTIONAL: Well developed and in no acute distress. EYES: Conjuctivae without sclera icterus. Extraocular movements grossly intact. HEAD, EARS, NOSE, THROAT: Moist buccal mucosa. Head is atraumatic, normocephalic. NECK: Tracheostomy intact RESPIRATORY: Non-labored respirations and equal bilateral excursions. CARDIOVASCULAR: Palpable 2+ radial pulses. Tachycardic ABDOMEN: Gastrostomy tube intact and assessed with nurse MUSCULOSKELETAL: No gross deformity of the lower extremities noted. No clubbing. No cyanosis. SKIN: Good skin turgor. Well perfused. NEUROLOGIC: Cranial nerves II through XII grossly intact. No focal or lateralizing signs. PSYCH: CLINICAL LABS: White blood cell improved from 22,000 15,000 with leukocytosis. Hemoglobin 6.3-7.1 for anemia following blood transfusion ASSESSMENT: 1. Coronavirus pneumonia 2. Ventilatory-dependent respiratory failure 3. Status post tracheostomy for prolonged intubation 4. Status post gastrostomy for inadequate protein malnutrition 5. Morbid obesity due to excess calories, BMI 47.5 6. Anemia status post blood transfusion 7. Sepsis PLAN: 1. Continue antibiotics for sepsis 2. Gastrostomy feeding tube per dietitian nutritional goals Objective - Vital Signs Vital signs: Vital Signs Temp 98.7 F 10/21/20 08:00 Pulse 116 H 10/21/20 11:00 Resp 34 H 10/21/20 11:00 BP 124/74 10/21/20 11:00 Pulse Ox 96 10/21/20 11:00 Intake & Output 10/20/20 10/21/20 10/21/20 18:59 06:59 18:59 Intake Total 3095.562 9575.821 510 Output Total 4000 0 0 Balance -2359.347 1181.821 510 Weight 111.7 kg 106.7 kg Intake: IV 160 240 100 Sodium Chloride 0.9% 500 160 240 100 ml 500 ml @ 10 mls/hr IV .Q24H [facility] Rx#:[id number] Intake, IV Titration 233.653 179.821 100 Amount Dexmedetomidine/0.9% NaCl 95.4 (Pmx) 400 mcg In Empty Bag 1 bag @ Titrate IV . Q0M [facility] Rx#:[id number] Dexmedetomidine/0.9% NaCl 179.821 100 (Pmx) 400 mcg In Empty Bag 1 bag @ Titrate IV . Q0M [facility] Rx#:[id number] Norepinephrine 8 mg In 17.445 Sodium Chloride 0.9% 250 ml @ 0.05 MCG/KG/MIN 11. 136 mls/hr IV .[id number] [facility] Rx#:[id number] fentaNYL (PF) 2,500 mcg 120.808 In Sodium Chloride 0.9% 200 ml @ Per Protocol IV .Q0M [facility] Rx#:[id number] Tube Feeding 672 672 280 Blood Product 310 Rc As-1 Unit 310 [id number] Other 265 90 30 Output: Urine 0 0 0 Hemodialysis 4000 Other: # Voids 0 # Bowel Movements 1 ABP, PAP, CO, CI - Last Documented Arterial Blood Pressure 136/76 - Labs CBC & Chem 7: 10/21/20 04:47 10/21/20 04:47 Labs: Abnormal Lab Results - Last 24 Hours (Table) 10/20/20 10/20/20 10/20/20 Range/Units 11:33 17:31 23:58 WBC (3.8-10.6) k/uL RBC (3.80-5.40) m/uL Hgb (11.4-16.0) gm/dL Hct (34.0-46.0) % MCHC (31.0-37.0) g/dL RDW (11.5-15.5) % Neutrophils # (Manual) (1.3-7.7) k/uL Lymphocytes # (Manual) (1.0-4.8) k/uL Monocytes # (Manual) (0-1.0) k/uL Metamyelocytes # (Man) (0) k/uL Myelocytes # (Manual) (0) k/uL ABG pCO2 (35-45) mmHg ABG pO2 (83-108) mmHg ABG HCO3 (21-25) mmol/L ABG Total CO2 (19-24) mmol/L ABG O2 Saturation (94-97) % BUN (7-17) mg/dL Creatinine (0.52-1.04) mg/dL Glucose (74-99) mg/dL POC Glucose (mg/dL) 246 H 331 H 379 H (75-99) mg/dL Total Protein (6.3-8.2) g/dL Albumin (3.5-5.0) g/dL 10/21/20 10/21/20 10/21/20 Range/Units 04:47 04:47 05:34 WBC 15.0 H (3.8-10.6) k/uL RBC 2.62 L (3.80-5.40) m/uL Hgb 7.1 L (11.4-16.0) gm/dL Hct 23.8 L (34.0-46.0) % MCHC 29.9 L (31.0-37.0) g/dL RDW 17.7 H (11.5-15.5) % Neutrophils # (Manual) 11.80 H (1.3-7.7) k/uL Lymphocytes # (Manual) 0.60 L (1.0-4.8) k/uL Monocytes # (Manual) 1.35 H (0-1.0) k/uL Metamyelocytes # (Man) 0.75 H (0) k/uL Myelocytes # (Manual) 0.45 H (0) k/uL ABG pCO2 49 H (35-45) mmHg ABG pO2 51 L* (83-108) mmHg ABG HCO3 30 H (21-25) mmol/L ABG Total CO2 32 H (19-24) mmol/L ABG O2 Saturation 84.6 L (94-97) % BUN 45 H (7-17) mg/dL Creatinine 1.96 H (0.52-1.04) mg/dL Glucose 360 H (74-99) mg/dL POC Glucose (mg/dL) (75-99) mg/dL Total Protein 5.0 L (6.3-8.2) g/dL Albumin 2.4 L (3.5-5.0) g/dL 10/21/20 10/21/20 Range/Units 05:45 10:33 WBC (3.8-10.6) k/uL RBC (3.80-5.40) m/uL Hgb (11.4-16.0) gm/dL Hct (34.0-46.0) % MCHC (31.0-37.0) g/dL RDW (11.5-15.5) % Neutrophils # (Manual) (1.3-7.7) k/uL Lymphocytes # (Manual) (1.0-4.8) k/uL Monocytes # (Manual) (0-1.0) k/uL Metamyelocytes # (Man) (0) k/uL Myelocytes # (Manual) (0) k/uL ABG pCO2 (35-45) mmHg ABG pO2 (83-108) mmHg ABG HCO3 (21-25) mmol/L ABG Total CO2 (19-24) mmol/L ABG O2 Saturation (94-97) % BUN (7-17) mg/dL Creatinine (0.52-1.04) mg/dL Glucose (74-99) mg/dL POC Glucose (mg/dL) 398 H 256 H (75-99) mg/dL Total Protein (6.3-8.2) g/dL Albumin (3.5-5.0) g/dL Microbiology - Last 24 Hours (Table) 10/17/20 10:55 Anaerobic Culture - Final Trachea Anaerobic Gm Negative Bacilli Assessment and Plan (1) Respiratory failure requiring intubation Current Visit: Yes Status: Acute Code(s): J96.90 - RESPIRATORY FAILURE, UNSP, UNSP W HYPOXIA OR HYPERCAPNIA SNOMED Code(s): 495897163 (2) Morbid obesity due to excess calories Current Visit: Yes Status: Acute Code(s): E66.01 - MORBID (SEVERE) OBESITY DUE TO EXCESS CALORIES SNOMED Code(s): 060442441 (3) BMI 45.0-49.9, adult Current Visit: Yes Status: Acute Code(s): Z68.42 - BODY MASS INDEX [BMI] 45.0-49.9, ADULT SNOMED Code(s): 332209308 (4) Sepsis Current Visit: Yes Status: Acute Code(s): A41.9 - SEPSIS, UNSPECIFIED ORGANISM SNOMED Code(s): 27046120 (5) Anemia Current Visit: Yes Status: Acute Code(s): D64.9 - ANEMIA, UNSPECIFIED SNOMED Code(s): 166311636 (6) Pneumonia due to COVID-19 virus Current Visit: Yes Status: Acute Code(s): U07.1 - COVID-19; J12.82 - Pneumonia due to coronavirus disease 2018 SNOMED Code(s): 025413448296303407 (7) Inadequate dietary intake of protein Current Visit: Yes Status: Acute Code(s): E63.9 - NUTRITIONAL DEFICIENCY, UNSPECIFIED SNOMED Code(s): 956003225
--- NOTE | 2020-10-21 15:12 | P.PN ---
Subjective Progress Note Date: 10/21/20 HISTORY OF PRESENT ILLNESS 35-year-old female patient of Dr. Arroyo with past medical history of type 2 diabetes comes in with acute shortness of breath associated with high light sugars. Patient on admission was found to have a fever of 101.5 pulse rate 125 respiratory rate 20. Blood pressure 132/106. On chest x-ray obtained in the ER suggestive of bilateral infiltrates concerning for call with pneumonia. COVID PCR was positive. On admissions patient had an ABG with a pH of 7.14 pCO2 of 20, pO2 of 59, bicarb of 7. Patient's blood sugar on admission was 424 on assessment today patient's blood work patient had a sodium 135 potassium 5.4 chloride 123 bicarb less than 5 and creatinine 0.73. D-dimer was elevated on admission patient 9 28 patient given 1 L of IV fluids followed by normal saline running at 200 mL/h. Patient was positive for acetone on admission. She will anion gap closed and was switched to D5NS. Insulin drip was continued during the night and was switched to patient's home medication this morning. One dose of remdesiver was ordered. Apparently around noon, A- team was called on the patient secondary to hypoxia patient's oxygen saturation dropped to the 70s and 80s on 100% nonrebreather. Patient was switched to BiPAP on 18/12 and is doing better o FiO2 of 80%. ABG was obtained and ph was 7. 14 pCO2 of 28 bicarb of 7 pO2 of 17. Patient noted to have uncompensated metabolic acidosis with compensated respiratory alkalosis. Stat dose of 1 amp bicarb was given and followed by sodium bicarbonate drip. Insulin drip restarted. Patient's initiated on dexamethasone 6 mg IV twice a day. Potassium phosphate ordered as phosphorus is low. Patient's repeat blood gases suggest a pH of 7.25, CO2 32 pO2 of 72 bicarb 14. I will not normal saline at 100 mL/h as patient's anion gap has increased. Patient given 1 dose of 2 mg of morphine with improvement in respiratory rate. One dose of Ativan 0.5 mg was given. Xanax 0.25 twice a day along with Ativan 0.5 IV every 6 hours ordered for the patient. Vitals were evaluated patient pulse 129 [id number]. She was moved to the ICU. Precedex drip was initiated. Lopressor was initiated at 25 twice a day. Metoprolol tartrate 5 mg IV every 6 hours. Systolic blood pressure more than 160. Started chest x-ray was obtained and suggest stable bilateral consolidation suggestive of COVID-19 pneumonia. 09/12 patient is seen in the ICU is currently mechanically ventilated and sedated on vent settings of respiratory rate 36, tidal volume 375 FiO2 80% PEEP of 18.. Vital signs reviewed patient had a temp of 100.4 pulse 150 respiratory rate 36 oxygen saturation 95% on 80% on fio2 .'s labs are reviewed which patient had a d-dimer 1.84 that is increased to 14.3. Arterial Blood gas suggest ph 7.35, CO2 40, po2 62, . Her BMP suggest a sodium 135 potassium 3.7 chloride 112 bicarb 21 creatinine 1.57 for calcitonin is 3.5 CRP is increased from 8.78.2 LDH is increased to 2614. Patient remains on Pneumovax, propofol drip. Lovenox increased to 50 subcu twice a day. Patient received 2 L of IV fluids. Continue IV fluids at 100 mL/h. Bicarb drip discontinued patient initiated on Zosyn 3.375 every 8 hours. Continue insulin drip at 4 units per hour. Patient is currently in prone positioning 09/13: Patient evaluated in the ICU remains on Ventilation continues to be sedated, in prone position. Vent settings are respiratory rate 36, tidal vital 375, FiO2 70% PEEP of 18. ABG shows pO2 of 82, PCO2 of 39, pH is 7.19. Latest labs show WBC 11.1, hemoglobin 13.2, d-dimer still pending, but yesterday was up to 14.3. Creatinine up to 3.4, BUN 24 sodium 137, potassium 4.0. Patient's urine output has been low, nephrology on consult. Bicarb drip increased to 100 miles an hour, receiving another liter of normal saline, she did have a ultrasound that showed unremarkable bilateral kidneys. Repeat chest x-ray showed bilateral lung infiltrates that are stable. Anion gap has closed, will start Lantus 10 units at at bedtime Novolog every 6 hours. 09/14: Patient is seen in the ICU, still currently mechanically ventilated and sedated. She continues in the prone position. Her oxygen quickly drops if she is not in prone. Patient's kidney function has worsened. Laboratory values show creatinine of 4.87, BUN 33, LDH 2191, C-reactive protein 2.7. ABG shows pH 7.32, pO2 of 60, pCO2 43. Patient is making almost no urine overnight. Nephrology is following patient continues on cefepime for urinary tract infection, culture is still pending. Vascular has been consulted for placement of temporary hemodialysis catheter for plans for dialysis. 09/15: Patient evaluated in the ICU, continues to be mechanically ventilated and sedated on assist control ventilation rate of 36, tidal volume 375, FiO2 100% and PEEP of 18. ABG today shows pO2 58, pCO2 of 45, and pH 7.35. She continues on tube feedings. Yesterday patient underwent ultrasound-guided right internal jugular non-tunneled hemodialysis catheter placement. Patient underwent hemodialysis treatment last night and plans have another hemodialysis treatment today. She continues to make almost no urine. She continues on cefepime for antibiotic coverage, and continues on Decadron and Lovenox. 09/16: Patient seen on follow-up remains in the ICU mechanically ventilated and sedated. She continues on assist control rate of 36, tidal volume 375, FiO2 100% and PEEP of 20. PEEP had to be increased due to patient had to be in supine position for dialysis, will go back to prone position once dialysis is complete. ABG shows pH 7.32, pCO2 49, PaO2 61. Laboratory values showed WBC 11.2, hemoglobin 11, sodium 134, creatinine 4.44, BUN 38. Urine culture shows no growth, blood cultures show no growth to date. Repeat chest x-ray shows bilateral pleural effusions, correlate for ARDS, pulmonary edema, diffuse pneumonia, findings are stable from last exam. Patient does not require any pressors, blood pressure 133/57, heart rate 78. 5/16: Patient was evaluated in the ICU today for follow-up. She continues to be intubated and on mechanical ventilation. Current vent settings are tidal volume 375, FiO2 100% and PEEP of 20. ABG shows pH 7.37, pCO2 40, pO2 102. She continues with intermittent prone positioning. Patient continues to have almost no urine output, maintained on dialysis. Patient received dialysis yesterday without complication. Laboratory values revealed WBC 10.3, hemoglobin 10.4, sodium 132, potassium 3.1, BUN 33, creatinine 4.29, LDH 1913, C-reactive protein 1.3. Urine and sputum cultures are negative, blood cultures show no growth to date. Consult placed to dietary to start TPN[ ] 09/18: She remains in the intensive care unit intubated and on mechanical ventilation with tidal volume 375, FiO2 60 and PEEP of 20. Patient is being prone to daily at approximately 16 hours per day. Pulmonary medicine has added in Dr. Zhang to do PEG tube and trach today. Patient is not on vasopressors. Repeat blood work reveals WBC 12.6, hemoglobin 9.8, platelet count 212. Sodium 133, potassium 3.2, chloride 102, CO2 21, BUN 35 and creatinine 4.12. Blood sugar 126. Patient underwent hemodialysis yesterday with removal of 2 L and is scheduled again today with goal of 2-3 L and is scheduled again tomorrow. 09/19: She is scheduled for hemodialysis today and is off fentanyl temporarily. Patient is status post trach and PEG tube yesterday. And she remains on mechanical ventilation. Pulse ox 93-95%. She has been afebrile, heart rate 64, respiratory rate 36, blood pressure 115/50. Fentanyl is off to improve blood pressure for hemodialysis which is scheduled for today. Contacted vascular surgery about permanent hemodialysis catheter. Repeat blood work reveals WBC 14.3, hemoglobin 9.6, platelet count 200. D-dimer 6.48. LDH 1686. C-reactive protein 1.1. BUN 34 creatinine 3.81. Sodium 130, potassium 3.5, chloride 101, CO2 18. Blood sugars running between 101 198. Plan is to wean off Pneumovax today. Patient remains on insulin drip. Repeat chest x-ray reveals bilateral multifocal confluent opacities consistent with COVID-19. Some improved aerati on periphery of the left lung and worsening opacities throughout the right lung. 09/20: She remains in the intensive care unit on mechanical ventilation. She has been afebrile, heart rate 65, respiratory rate 37, blood pressure 121/70, pulse ox 91-99%. Repeat blood work reveals WBC 14.5, hemoglobin 9.1, platelet count 216. D-dimer 6.13. Sodium 133, potassium 3.1, chloride 102, CO2 18, BUN 35 and creatinine 4.27. Blood sugars running between 128 and 143. LDH 1717. C- reactive protein 1.7. Patient remains on insulin drip which will be transitioned to NovoLog scale every 6 hours. Patient is scheduled for permanent hemodialysis catheter placement today with vascular surgery. Repeat chest x-ray reveals stable diffuse bilateral interstitial and airspace disease. Possible small right effusion. His work is following [facility] Do not anticipate discharge until next week. 09/21: Patient is undergoing hemodialysis. She remains on mechanical ventilation with tidal volume 375, FiO2 down to 45 and PEEP was decreased to 15. Patient is continued on propofol, fentanyl drips. She is on tube feedings at goal. Patient was taken off insulin drip yesterday and on scale only but blood sugars are running in the 200s, Levemir scheduled at bedtime will be added. Other blood work reveals WBC 13.3, hemoglobin 8.7, platelet count 192. Sodium 137, potassium 3.6, chloride 107, CO2 18, BUN 34 and creatinine 4.21. Repeat chest x-ray is stable. 09/22: She remains in the intensive care on mechanical ventilation with tidal volume 375, FiO2 of 50 and PEEP of 10. Pulse ox is running 96%. She is afebrile, heart rate in the 50s, respiratory rate 36, blood pressure 100/64. Repeat blood work reveals WBC 16.5, hemoglobin 8.9, platelet count 213. Sodium 134, potassium 3.7, chloride 103, CO2 21, BUN 34 and creatinine 3.89. Blood sugars running in the 200s to 324. Levemir increased to 16 units at bedtime and continue NovoLog scale every 6 hours. Patient is on tube feedings at goal. She has a Haley catheter in with a scant amount of dark/brown urine. Fecal management system is in place. Repeat chest x-ray reveals diffuse bilateral airspace infiltrates persist unchanged. Patient is scheduled for hemodialysis tomorrow morning on Friday. 09/23: Patient remains on mechanical ventilation with tidal volume 3.75, FiO2 50 and PEEP of 10. school bus monitor sinus rhythm. She has no urine output. Fecal management system is in place. She is undergoing dialysis at this time with plan for removal of 2-1/2 L. She has been afebrile, heart rate in the 50s, respiratory rate 36, blood pressure 108/76 and pulse ox 89%. WBC 13.6, hemoglobin 9.1, platelet count 194. Sodium 136, potassium 3.0 and was replaced, chloride 106, CO2 21, BUN 49 creatinine 5.31. Blood sugars are running between 182 and this morning 194. Patient was still in the 200s and 300s. Levemir last evening was increased to 16 units. Patient remains on propofol and fentanyl dri ps. Lovenox was increased to 60 mg twice daily. 09/24: PEEP was increased today to 20, tidal volume is at 375 and FiO2 of 50%. Patient has been afebrile. She has been started on levo fed. Repeat chest x- ray reveals bilateral multifocal confluent opacities consistent with Covid 19 or ARDS redemonstrated. Nephrology will plan dialysis for tomorrow for 3 L. Patient remains on propofol fentanyl and Nimbex. WBC 12.5, hemoglobin 9.8, platelet count 161. D-dimer 13.3. Sodium 132, potassium 3.4, chloride 102, CO2 20, BUN 48 and creatinine 4.67. Blood sugars extremely elevated to 96-409. LDH 2217. 09/25: Patient remains in the intensive care unit on mechanical ventilation with tidal volume 375, FiO2 50 and PEEP of 20. Patient is afebrile, heart rate 61, respiratory rate 36, blood pressure 102/56, pulse ox 97%. Repeat blood work reveals WBC 9.3, hemoglobin 8.5 and platelet count 171. Sodium 130, potassium 3.7, chloride 100, CO2 20, BUN 61 creatinine 5.65. Blood sugars have been walt vated up to 455. Levemir increased to 20 units twice daily, NovoLog 5 units every 6 hours and continue NovoLog scale. Patient is scheduled for hemodialysis today. Repeat chest x-ray reveals bilateral multifocal and confluent opacities. Decadron and Lovenox dosing change by pulmonary. Patient is off norepinephrine. 09/26: Patient remains in the intensive care unit on mechanical ventilation with tidal volume 375, FiO2 50 and PEEP of 15. She has been afebrile, heart rate 91, blood pressure 114/68, pulse ox 99%. school bus monitor sinus rhythm. 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 Sodium 134, potassium 3.6, chloride 102, CO2 22, BUN 41 creatinine 4.21. Patient has improved blood sugars this morning running 150s and 160s. Diabetic medications were adjusted yesterday. Patient is awake and alert and interacting. Yesterday, patient had PICC line inserted by interventional radiology. Repeat chest x-ray reveals diffuse airspace infiltrates in both lung ann appear to progress slightly in the interval. 09/27: Patient remains in intensive care unit on mechanical ventilation with improvement of settings with tidal volume 375, FiO2 decreased to 40 and PEEP decreased to 10. Patient is on hemodialysis every other day and plan to remove 3 L today. Patient is more awake and alert. She is slow to respond but is able to follow simple commands. Blood sugars are running between 84 and 123. Repeat blood work reveals WBC 7.1, hemoglobin 8.1, platelets 152. Sodium 135, potassium 3.6, chloride 103, CO2 21, BUN 53 and creatinine 5.88. Repeat chest x -ray revealed cardiomegaly and pulmonary edema. Patient is on tube feedings:. Patient is not require vasopressors and is off sedation. Fecal management system remains in place for brown liquid stool. C. difficile was negative. 09/28: Patient remains on mechanical ventilation with tidal volume 375, FiO2 increased to 80 and PEEP increased to 18. Patient had a rough night was very anxious, no pain. Xanax 0.25 mg 3 times daily was added. There is concern for pulmonary embolism for which patient was started on heparin drip, she is unable to undergo CAT scan. Venous Doppler bilateral lower extremities was nondiagnostic due to extensive edema in obese patient but minimal imaging of the popliteal veins does show flow. Repeat echocardiogram has been ordered. Cefepime has also been ordered at 1 g IV piggyback every 24 hours as well as vancomycin, pharmacy dosing. Patient is back on fentanyl drip, propofol drip and norepinephrine. Blood sugars are elevated and insulin Levemir will be increased to 25 mg twice daily. Ferrlecit infusion has been ordered by nephrology for 4 days. Patient is undergoing hemodialysis today.temperature max 100.2, heart rate 134, respiratory rate 34, blood pressure 120/65, pulse ox 94%. school bus monitor is sinus tachycardia. Repeat blood work reveals WBC 16.9, hemoglobin 9.7, platelet count 216. D-dimer 8.81. Sodium 134, potassium 3.8, chloride 99, CO2 25, BUN 43 and creatinine 5.36. Blood sugars in the 200s. AST 40. 09/29 Patient had declined more last 48 hours require more sedation, patient is doing hemodialysis, respiratory failure is quite bit worse this time. Patient was inquired the pain is well back on fentanyl drip. Her vent set up with PEEP is limited but higher. No new finding on culture and her chest x-ray continues shows diffuse infiltrate persistent although there is a moderate interval improvement. 09/30 patient's was seen and evaluated. PEEP was reduced to 11 as patient is maintaining good saturation at the current vent settings. 10/01 patient was seen at bedside. She is currently on assist control rate of 28 white tidal volume 350 FiO2 50% and PEEP of 10 which has been reduced by pulmonary as patient name cleaning her oxygen saturation. Arm blood gas was obtained with a pH of 7.35 pCO2 37 pO2 of 63. She remains hemodynamically stable with no need for pressors. Labs were reviewed patient's BUN is 29 cre atinine 3.93 glucose 122 albumin 2.2 sodium 131 chloride 19 hemoglobin is downtrending with a Hb of 7.3 no leukocytosis 7.1. Patient's urine output is minimal at this time. Her rate has increased to 129 and is currently on positive fluid balance even with dialysis. Last dialysis was done yesterday. Continue enteral feeding currently at goal. Antibiotic has been discontinued and continues to remain on DEXA methicillin 4 mg IV daily. 10/02 patient continues to be on trach support with mechanical ventilation. Patient was evaluated by general office clerk and was switched to VC control as patient was noted to be double stacking on and off throughout the night. Respiratory rate continue to 28 tidal volume increased to 400 with a PEEP for Dr. Downey. Patient is maintaining oxygen saturation 91% on the current setting. According to the nurse bedside patient saturation drops significantly or she is moved or her sedation is dropped. Patient is currently on propofol drip, fentanyl drip. She did underwent dialysis today and was able to maintain her low pressure without the need of pressors. Labs reviewed today suggest a WBC of 6.7 hemoglobin of 7.0 and d-dimer 3.9 bicarb 17 BUN 38 creatinine 4.8. LDH is 964. Sodium 1:30 likely secondary to volume overload. Urine sodium and urine osmolality ordered. Patient's glucose this morning is 146. Continue to remain on enteral feeding. Urine output is reduced. Fall catheter will be placed today. Continue to remain on dialysis. 10/03: Patient remains on mechanical ventilation and is back on propofol and fentanyl drips. Patient is currently on VC control with tidal volume 400, FiO2 55 and PEEP of 12. Patient still is not making any urine and is dialysis dependent with next treatment planned for tomorrow with removal of 3-3-1/2 L. PEG tube feedings are at goal. Fecal management system remains in place. At the time of evaluation, patient is off levophed. Repeat chest x-ray reveals stable diffuse bilateral airspace disease correlate for ARDS, pulmonary edema or diffuse pneumonia. Temperature max last evening was 101. Temperature currently 99, heart rate 106, respiratory rate 32, blood pressure 101/50, pulse ox 86%. Repeat blood work reveals WBC 6, hemoglobin 7.4, platelet count 160. D-dimer 4.05. Sodium 133, potassium 3.5, chloride 100, CO2 23, BUN 31 creatinine 3.8. Blood sugars are running between 100 and 170. Ferritin 1514. Liver function test normal. LDH 1016, C-reactive protein 13.6. Prognosis remains guarded. 10/04: Patient remains intubated on mechanical ventilation with tidal volume 400, FiO2 65, PEEP of 14. Patient continues to run fevers and repeat blood culture and urine and urine culture ordered for today. Haley catheter has been removed this patient has no significant urine output at about 20 mL per shift. BladderScan is monitored for greater than 300 and the patient is straight cathed. Hemoglobin is 6.8 and she has been ordered 41 unit of packed RBCs today. She is currently on propofol and fentanyl drips. She is scheduled for hemodialysis today. WBC 4.5, hemoglobin 6.8, platelet count 151. D-dimer 3.28. Sodium 132, potassium 4.1, chloride 100, CO2 22, BUN 37 creatinine 4.74. Blood sugars running between 97 and 110. Ferritin 1801. LDH 859. C-reactive protein 14.4. Chest x-ray reveals correlate for pneumonia, edema, ARDS. Prognosis remains guarded. 10/05: Patient remains in intensive care unit currently on mechanical ventilation with tidal volume 400, FiO2 was increased to 100 and PEEP is at 14. She continues to run fevers which have worsened with temperature max 103.1. She has been tachycardic in the 130s, blood pressure is marginal but not on vasopressors. Pulse ox currently 92%. Repeat blood work reveals WBC 5.5, hemoglobin 7.6, platelet count 190. D-dimer 2.7, ferritin 1770, LDH 932, C- reactive protein 21.4. Blood sugars are running between 100 1669. Electrolytes are normal. BUN 27 and creatinine 3.79. Pancultures were done yesterday including a straight cath for urine culture, sputum culture and blood culture. Arterial line was removed as well as midline. She is currently on propofol, fe ntanyl and started on Nimbex today. 10/06: Patient remains in the intensive care unit. Today patient in prone position and remains on mechanical ventilation with tidal volume 350, FiO2 65 and PEEP of 14. Her last documented fever was yesterday at 2 PM. Heart rate is in the 120s, respiratory rate 32, pulse ox 88-92%. CBC is unremarkable. Electrolytes are normal. BUN 30 creatinine 2.93. Blood sugars are running between 135 and 164. Cultures from October 04: Blood culture no growth, sputum culture finalized, urine culture finalized. Catheter tip culture is in process. Repeat chest x-ray shows bilateral interstitial infiltrates. Patient is on tube feedings of Nepro at goal of 30 ML's per hour. Patient underwent dialysis yesterday and is scheduled for repeat dialysis today. 10/07: Patient maintains in the intensive care unit intubated and on mechanical ventilation. She is receiving hemodialysis this morning has been every day. Plan is to remove 2-1/2 L today. Vent settings have changed today with tidal volume 350, FiO2 was increased to 100% and PEEP remains at 14. She has been continued on Nimbex, fentanyl, norepinephrine and propofol. Plan is to prone position patient following dialysis. Repeat chest x-ray reveals worsening interstitial infiltrates. BUN is 26 and creatinine 2.59. LDH 955, C-reactive protein 22.1. Prognosis remains poor. 10/08: Patient remains in intensive care unit intubated and on mechanical ventilation with tidal volume 350, FiO2 60, PEEP of 14. She is pronating today. She is scheduled for hemodialysis on a daily basis. She has been afebrile, heart rate 112, respiratory rate 36, blood pressure 161/88, pulse ox 93%. Repeat blood work reveals WBC 9.9, hemoglobin 9.1, platelet count 320. Sodium 133, potassium 5.3, chloride 100, CO2 20, BUN 29 creatinine 2.44. Blood sugar running between 102 and 139. LDH 1026, C-reactive protein 19.7. 10/09: Patient is undergoing dialysis this morning. She continues to be intubated and on mechanical ventilation with tidal volume 350, 270 and PEEP of 14. Patient is also on propofol, Nimbex, norepinephrine and fentanyl drips. Repeat chest x-ray reveals persistent bilateral multifocal and confluent opacities consistent with Covid 19. She is afebrile, heart rate 116, respiratory rate 36, blood pressure 120/65, pulse ox 91%. Repeat blood work reveals WBC 5.4, hemoglobin 9.2, platelet count 216. D-dimer 2.67, ferritin 2568, LDH 794, C- reactive protein 13.9. Blood sugars have been running 90-104. Creatinine 1.64. She is on daily dialysis treatment. 10/10: She remains in the intensive care unit. She is now out of isolation as a repeat Covid test came back negative. She remains on mechanical ventilation with tidal volume 350, FiO2 70 and PEEP of 14. Patient is also on Nimbex, propofol, norepinephrine, fentanyl drips. She is on PEG tube feedings at goal and tolerating well. Repeat blood work reveals WBC 7.8, hemoglobin 7.5, platelet count 267. Sodium 139, potassium 3.9, chloride 109, CO2 20, BUN 20 creatinine 1.29. Blood sugars are running between 76 and 102. Scheduled Nov oLog decreased to 3 units. Repeat chest x-ray reveals moderate cardiomegaly and continued pulmonary edema. Slight interval improvement. Patient is continued on daily hemodialysis. 10/11: Patient remains in intensive care unit on mechanical ventilation with tidal volume 325, FiO2 70, PEEP 14. She is currently being prone. She underwent hemodialysis this morning with removal of 4 L of fluid with plan to continue daily treatment. She is currently on Nimbex, fentanyl and propofol. No vasopressor at this time. Fecal management system remains in place. She is on tube feedings currently at hold due to prone positioning. Patient has been afebrile, heart rate 116, respiratory rate 36, blood pressure 100/58, pulse ox 93-96%. Repeat blood work reveals WBC 9.3, hemoglobin 8.1, platelet count 276. Sodium 136, potassium 4.3, chloride 103, CO2 20, BUN 20 creatinine 1.14. Blood sugars running between 133 and 202. 10/12: Patient remains in the intensive care unit. She is undergoing hemodial ysis this morning. She's been afebrile, heart rate in the 120s, respiratory rate 32, blood pressure 102/65. She is not on vasopressors. She is continued on Nimbex, fentanyl and propofol. Vent settings are currently tidal volume 325, FiO2 70, PEEP 14. Total platelet count 273. Sodium 133, potassium 4.7, chloride 100, CO2 19, BUN 21 creatinine 0.91. Blood sugars running between 121 and 143. 10/13: Patient remain in the ICU she is on hemodialysis daily, she is still on the vent with a PEEP of 14 and FiO2 of 70. Her oxygenation is marginal pulse rate still high. Patient had scratched cornea was seen in ophthalmology decided to keep doing eyedrops along with eye patch at this point. Prognosis still very bad this point. 10/14: She remains on mechanical ventilation with tidal volume 325, FiO2 70% and PEEP of 14. She did require label fed last evening for about 6 hours. She did not tolerate pronating yesterday. She is undergoing dialysis this morning with plan for removal of 4 L. Blood sugars have been low and IV fluids changed to D10 until blood sugars have recovered. Levemir and scheduled NovoLog discontinued. Patient is on tube feedings at goal there's been no change in t his. 10/15 patient remains on mechanical ventilation in the intensive care unit. FiO2 still at 70%, PEEP of 18. Blood sugars have improved since medications were adjusted. White blood cells 33.9, hemoglobin 8.5, sodium 135, BUN 19, creatinine 0.96. Patient to receive dialysis again today. Patient did run a low-grade fever throughout the night and pro calcitonin level is ordered. Chest x-ray showed continued diffuse bilateral airspace disease. Patient remains on tube feedings at goal. 10/16: Patient remains on mechanical ventilation with tidal volume 300, FiO2 70, PEEP of 15. Fecal management system is out. She is currently on low dose of norepinephrine. She is also on fentanyl drip, propofol drip, rocuronium drip. Heart rate is running in the 130s, sinus rhythm, blood pressure 121/63, pulse ox 95%. Patient is been afebrile. Repeat blood work reveals WBC 18.9, hemoglobin 7.5, platelet count 291. Sodium 135, potassium 4.2, chloride 101, CO2 19, BUN 25 and creatinine 1.36. Blood sugars are running between 143 and 199. Patient is on scale insulin only. Repeat chest x-ray reveals persistent bilateral multifocal and completed opacities consistent with Covid 19. 10/17: Patient remains on mechanical ventilation with tidal volume 300, FiO2 50, PEEP of 14. She is currently receiving hemodialysis. The patient is having yellow-colored drainage from the trach site. This is going to be culture today. Repeat blood work reveals WBC of 24, hemoglobin 7.3 and platelet count 310. Sodium 136, potassium 4.1, chloride 101, CO2 19, BUN 24 creatinine 1.43. Blood sugar 139. Capillary blood glucose running 147 and 189. Repeat chest x-ray is unchanged. Patient had increased respiratory rate 40s and 50s with oxygen saturation of 87 and now was increased and Seroquel added this morning. Prognosis remains guarded. 10/18: Patient remains on mechanical ventilation with tidal volume 300, FiO2 60, PEEP has been decreased to 12. Patient will need a PEEP of 8 in order to tr ansfer to long-term care. She is currently on fentanyl drip and Precedex drip. Patient is tracking when her name is stated. She seems to be slightly improved today. Patient has been afebrile, heart rate 106, respiratory rate 32, blood pressure 110/61, pulse ox 98%. Repeat blood work reveals WBC 30.3, hemoglobin 7.2, platelet count 350. Sodium 139, potassium 4.2, chloride 103, CO2 20, BUN 23 creatinine 1.79. Blood sugars are increasing running up 299. Patient will be placed on Levemir. Secretions from tracheotomy sent for culture and in process. She is currently undergoing hemodialysis. 10/19, patient still is in the vent with tracheostomy, PEEP of 12, left radial arterial line line was performed today. Patient has Acinetobacter growing on sputum cultures, still with leukocytosis however it's improving, IV cefepime was started today, hemodialysis performed today, and repeat again in the morning per Dr. Evans's recommendation, 1-1.5 L ultrafiltration creatinine 1.38, wbc count 19.9 hemoglobin 7.2 has hyperglycemia now without hypoglycemia, increase Levemir to 8 units 10/20 patient remains in ICU, still with ventilatory support, PEEP of 11, no fevers, blood sugars remains to be elevated, however his blood sugars are elevated with the maximize titration of enteral nutrition, vital AF 1.2 ingris per mL, approximately 1600 ingris per day, receiving at least 1400 mL per day, with increasing Levemir to 16 units, and NovoLog coverage at 4 units every 6 hours, while on tube feedings. Still on IV Decadron 2 mg daily, creatinine at 1.88, dialysis scheduled for Friday, and plan for dialysis holiday on Friday. 10/21: Patient's alert awake, still with no focalization sounds, she is symmetric, she is now following commands, still on ventilatory support, PEEP of 8.5, pulse ox 96% with mechanical ventilation, heart rate 1:15, blood pressure 94 systolic to 117 systolic tablets count is trending downwards, with the current level of 15, blood sugars need to be readjusted as she is now on full dose enteral feeding, blood sugar is trending between 260-398, Levemir increased to 30 units, keep on the NovoLog coverage at 4 units every 6 hours, dexamethasone is discontinued, patient is tachycardic, has a when necessary order of Lopressor 5 mg IV every 6 hours when necessary multiple specialists following IV cefepime, for Acinetobacter pneumonia, REVIEW OF SYSTEMS Unable to obtain due to mechanical ventilation. Objective - Vital Signs Vital signs: Vital Signs Temp 98.8 F 10/21/20 13:42 Pulse 115 H 10/21/20 14:00 Resp 33 H 10/21/20 14:00 BP 93/38 10/21/20 14:00 Pulse Ox 97 10/21/20 14:00 Intake & Output 10/20/20 10/21/20 10/21/20 18:59 06:59 18:59 Intake Total 8357.846 9468.821 906.074 Output Total 4000 0 4000 Balance -2359.347 1181.821 -3093.926 Weight 111.7 kg 106.7 kg Intake: IV 160 240 210 Cefepime 1 gm In Sodium 50 Chloride 0.9% 50 ml @ 12. 5 mls/hr IVPB Q24H [facility] Rx #:[id number] Sodium Chloride 0.9% 500 160 240 160 ml 500 ml @ 10 mls/hr IV .Q24H [facility] Rx#:[id number] Intake, IV Titration 233.653 179.821 188.074 Amount Dexmedetomidine/0.9% NaCl 95.4 (Pmx) 400 mcg In Empty Bag 1 bag @ Titrate IV . Q0M [facility] Rx#:[id number] Dexmedetomidine/0.9% NaCl 179.821 188.074 (Pmx) 400 mcg In Empty Bag 1 bag @ Titrate IV . Q0M [facility] Rx#:[id number] Norepinephrine 8 mg In 17.445 Sodium Chloride 0.9% 250 ml @ 0.05 MCG/KG/MIN 11. 136 mls/hr IV .[id number] [facility] Rx#:[id number] fentaNYL (PF) 2,500 mcg 120.808 In Sodium Chloride 0.9% 200 ml @ Per Protocol IV .Q0M [facility] Rx#:[id number] Tube Feeding 672 672 448 Blood Product 310 Rc As-1 Unit 310 [id number] Other 265 90 60 Output: Urine 0 0 0 Hemodialysis 4000 4000 Other: # Voids 0 # Bowel Movements 1 1 ABP, PAP, CO, CI - Last Documented Arterial Blood Pressure 136/76 - Constitutional General appearance: Present: cooperative - EENT Eyes: Present: PERRLA ENT: Present: NA/AT - Cardiovascular Rhythm: regular Heart sounds: normal: S1, S2 - Gastrointestinal General gastrointestinal: Present: normal bowel sounds, soft - Labs CBC & Chem 7: 10/21/20 04:47 10/21/20 04:47 Labs: Abnormal Lab Results - Last 24 Hours (Table) 10/20/20 10/20/20 10/21/20 Range/Units 17:31 23:58 04:47 WBC 15.0 H (3.8-10.6) k/uL RBC 2.62 L (3.80-5.40) m/uL Hgb 7.1 L (11.4-16.0) gm/dL Hct 23.8 L (34.0-46.0) % MCHC 29.9 L (31.0-37.0) g/dL RDW 17.7 H (11.5-15.5) % Neutrophils # (Manual) 11.80 H (1.3-7.7) k/uL Lymphocytes # (Manual) 0.60 L (1.0-4.8) k/uL Monocytes # (Manual) 1.35 H (0-1.0) k/uL Metamyelocytes # (Man) 0.75 H (0) k/uL Myelocytes # (Manual) 0.45 H (0) k/uL ABG pCO2 (35-45) mmHg ABG pO2 (83-108) mmHg ABG HCO3 (21-25) mmol/L ABG Total CO2 (19-24) mmol/L ABG O2 Saturation (94-97) % BUN (7-17) mg/dL Creatinine (0.52-1.04) mg/dL Glucose (74-99) mg/dL POC Glucose (mg/dL) 331 H 379 H (75-99) mg/dL Total Protein (6.3-8.2) g/dL Albumin (3.5-5.0) g/dL 10/21/20 10/21/20 10/21/20 Range/Units 04:47 05:34 05:45 WBC (3.8-10.6) k/uL RBC (3.80-5.40) m/uL Hgb (11.4-16.0) gm/dL Hct (34.0-46.0) % MCHC (31.0-37.0) g/dL RDW (11.5-15.5) % Neutrophils # (Manual) (1.3-7.7) k/uL Lymphocytes # (Manual) (1.0-4.8) k/uL Monocytes # (Manual) (0-1.0) k/uL Metamyelocytes # (Man) (0) k/uL Myelocytes # (Manual) (0) k/uL ABG pCO2 49 H (35-45) mmHg ABG pO2 51 L* (83-108) mmHg ABG HCO3 30 H (21-25) mmol/L ABG Total CO2 32 H (19-24) mmol/L ABG O2 Saturation 84.6 L (94-97) % BUN 45 H (7-17) mg/dL Creatinine 1.96 H (0.52-1.04) mg/dL Glucose 360 H (74-99) mg/dL POC Glucose (mg/dL) 398 H (75-99) mg/dL Total Protein 5.0 L (6.3-8.2) g/dL Albumin 2.4 L (3.5-5.0) g/dL 10/21/20 10/21/20 Range/Units 10:33 11:44 WBC (3.8-10.6) k/uL RBC (3.80-5.40) m/uL Hgb (11.4-16.0) gm/dL Hct (34.0-46.0) % MCHC (31.0-37.0) g/dL RDW (11.5-15.5) % Neutrophils # (Manual) (1.3-7.7) k/uL Lymphocytes # (Manual) (1.0-4.8) k/uL Monocytes # (Manual) (0-1.0) k/uL Metamyelocytes # (Man) (0) k/uL Myelocytes # (Manual) (0) k/uL ABG pCO2 (35-45) mmHg ABG pO2 (83-108) mmHg ABG HCO3 (21-25) mmol/L ABG Total CO2 (19-24) mmol/L ABG O2 Saturation (94-97) % BUN (7-17) mg/dL Creatinine (0.52-1.04) mg/dL Glucose (74-99) mg/dL POC Glucose (mg/dL) 256 H 260 H (75-99) mg/dL Total Protein (6.3-8.2) g/dL Albumin (3.5-5.0) g/dL Microbiology - Last 24 Hours (Table) 10/17/20 10:55 Anaerobic Culture - Final Trachea Anaerobic Gm Negative Bacilli Assessment and Plan Plan: ASSESSMENT AND PLAN 1. Acute hypoxic respiratory failure secondary to Covid 19 pneumonia and possible bacterial pneumonia. Patient was intubated on September 11. She is status post dose of Remdesivir and 1 dose of Tocilizumab. Continue Ventolin inhaler 4 times daily, Symbicort twice daily, Decadron 2 mg IV daily, Lovenox 30 mg subcu daily, supplements. Status post PEG tube and trach 09/18/20. Isolation precautions removed. Prone positioning held due to intolerance. 2. Acute diabetic ketoacidosis secondary to Covid 19 pneumonia, uncontrolled with hyperglycemia and DKA Resolved, blood sugar titration monitoring 3. Metabolic encephalopathy secondary to Covid 19 and DKA. 4. Sepsis and septic shock secondary to Covid 19 pneumonia with multiorgan failure. Continue as in #1. Trach drainage culture to be obtained. 5. Acute metabolic acidosis secondary to acute DKA, Covid 19 and acute kidney injury. Sodium bicarb 650 mg 3 times daily, Renvela 1600 mg 3 times daily.. 6. Diabetes mellitus type 2 uncontrolled with A1c 13.6. Continue as above. Increase to 1 30 units Levemir, with scale, 4 units NovoLog every 6 hours enteral feeds, vital AF, 1.2 ingris per mL, calculated at 1600 ingris per day 7. Hypophosphatemia status post replacement. On Renvela 8. Hyperkalemia secondary to DKA, resolved. 9. Sinus tachycardia secondary to sepsis, volume deficiency. 10. Acute kidney injury secondary to ATN secondary to Covid 19 and DKA currently on the soria for catheter has been discontinued Continue daily hemodialysis. Permanent dialysis catheter placed. 11. Acinetobacter baumanihaemolytica pneumonia versus MRSA pneumonia. Completed course of antibiotics. 12. Hypertension. 13. Morbid obesity with BMI of 53. 1600 ingris per day with enteral feedings, vital AF 1.2 14. DVT prophylaxis. Lovenox. 15. GI prophylaxis. Protonix 40 mg IV push daily. 16. Iron deficiency anemia, on iron and aaranesp 40 g every 7 days CODE STATUS: Full code Prognosis poor. DISCHARGE PLAN Shelter Acute Care probably select specialty Impression and plan of care have been directed as dictated by the signing physician. Kimberly Boswell nurse practitioner acting as scribe for signing physician.
[2020-10-21 17:28] LABS: Glucose,Whole Blood 288 mg/dL (75-99)
[2020-10-21 23:28] LABS: Glucose,Whole Blood 280 mg/dL (75-99)
[2020-10-22] MEDS: INSULIN ASPART (NovoLOG) 100 UNIT/ML VIAL SQ SCH ×10 (00:33→23:19)
[2020-10-22] MEDS: NOREPINEPHRINE 8 MG in SODIUM CHLORIDE 0.9% 250 ML IV SCH (02:24)
[2020-10-22] MEDS: DEXMEDETOMIDINE/0.9% NACL(PMX) 400 MCG in EMPTY BAG 1 BAG IV SCH ×3 (04:20→13:45)
[2020-10-22 04:49] LABS: ABG Base Excess 3.2 mmol/L; ABG HCO3 28 mmol/L (21-25); ABG Oxygen Saturation 92.9 % (94-97); ABG PCO2 48 mmHg (35-45); ABG PH 7.38 (7.35-7.45); ABG PO2 65 mmHg (83-108); ABG TCO2 30 mmol/L (19-24); Allen Test Performed? Yes
[2020-10-22] MEDS: HYDROmorphone 0.5 MG/0.5 ML SYRINGE IVP PRN ×3 (05:41→23:32)
[2020-10-22 06:17] LABS: Albumin 2.4 g/dL (3.5-5.0); Calcium 9.4 mg/dL (8.4-10.2); Potassium 4.3 mmol/L (3.5-5.1); Total Bilirubin 0.6 mg/dL (0.2-1.3); Total Protein 5.1 g/dL (6.3-8.2)
[2020-10-22 06:27] LABS: Anisocytosis Slight; HCT 22.1 % (34.0-46.0); HGB 7.2 gm/dL (11.4-16.0); Hypochromasia Marked; MCH 29.1 pg (25.0-35.0); MCHC 32.5 g/dL (31.0-37.0); MCV 89.7 fL (80.0-100.0); Mean Platelet Volume 9.8; Platelet Count 177 k/uL (150-450); Poikilocytosis Moderate; RBC 2.46 m/uL (3.80-5.40); RDW 17.7 % (11.5-15.5)
[2020-10-22 06:28] LABS: Glucose,Whole Blood 352 mg/dL (75-99)
--- NOTE | 2020-10-22 06:31 | XR ---
EXAMINATION TYPE: XR chest 1V portable DATE OF EXAM: 10/22/2020 CLINICAL HISTORY: Difficulty breathing progress study. TECHNIQUE: Single AP portable semiupright view of the chest is obtained. COMPARISON: Chest x-ray from one day earlier and older studies FINDINGS: Stable tracheostomy tube and right internal jugular large bore dialysis catheter. Stable r ight-sided PICC line. Bilateral fairly confluent opacities redemonstrated greatest in the lower lungs. Heart size stable an d mildly enlarged. Osseous structures are intact. IMPRESSION: Persistent bilateral confluent opacities consistent with edema and/or infiltrates. Possib le ARDS. No significant change from one day earlier.
[2020-10-22] MEDS: SEVELAMER 800 MG TAB PO SCH ×3 (06:48→16:49)
[2020-10-22 06:53] LABS: Eosinophils # (M) 0.67 k/uL (0-0.7); Lymphocytes # (M) 1.46 k/uL (1.0-4.8); Metamyelocytes # (M) 0.27 k/uL (0); Metamyelocytes % 2 %; Monocytes # (M) 0.53 k/uL (0-1.0); Myelocytes # (M) 0.27 k/uL (0); Myelocytes % 2 %; Neutrophils # (M) 10.37 k/uL (1.3-7.7); Neutrophils % (M) 78 %; Nucleated Red Blood Cells 2 /100 WBC (0-0); Total Cells Counted 200; WBC 13.3 k/uL (3.8-10.6)
[2020-10-22 06:55] LABS: Polychromasia Present
[2020-10-22 06:57] LABS: Basophilic Stippling Present
[2020-10-22] MEDS ORDERED: INSULIN DETEMIR (LEVEMIR) 100 UNIT/ML SYR SQ SCH (07:00)
[2020-10-22] MEDS: ALBUTEROL HFA INHALER INHALATION SCH ×4 (07:28→20:25)
[2020-10-22] MEDS: ASCORBIC ACID 500 MG TAB PO SCH ×2 (08:37→21:39)
[2020-10-22] MEDS: DILTIAZEM ORAL 30 MG TAB PO SCH (08:37)
[2020-10-22] MEDS: CHLORHEXIDINE GLUCONATE 15 ML CUP MUCOUS MEM SCH ×2 (08:37→21:39)
[2020-10-22] MEDS: ENOXAPARIN 30 MG/0.3 ML SYRINGE SQ SCH (08:37)
[2020-10-22] MEDS: CHOLECALCIFEROL 25 MCG (1000 IU) TABLET PO SCH (08:37)
[2020-10-22] MEDS: PANTOPRAZOLE 40 MG/10 ML VIAL IVP SCH (08:37)
[2020-10-22] MEDS: QUEtiapine 100 MG TAB PO SCH ×2 (08:38→21:39)
--- NOTE | 2020-10-22 08:42 | P.PN ---
Subjective Patient is seen in follow-up for acute kidney injury. Oliguric. Status post tracheostomy and PEG tube placement this admission. Receiving tube feeding. Currently on 60% FiO2. Receiving daily hemodialysis. Vital signs: Stable. General: The patient appeared well nourished and normally developed. HEENT: Tracheostomy noted. LUNGS: Breath sounds decreased. HEART: Regular rate and rhythm. Abdomen: Soft, no distention. EXTREMITITES: 1+ edema. Objective - Vital Signs Vital signs: Vital Signs Temp 99.6 F 10/22/20 08:00 Pulse 117 H 10/22/20 08:00 Resp 38 H 10/22/20 08:00 BP 107/63 10/22/20 08:00 Pulse Ox 97 10/22/20 08:00 Intake & Output 10/21/20 10/22/20 10/22/20 18:59 06:59 18:59 Intake Total 4775.448 6260.564 223.269 Output Total 4000 0 1100 Balance -2759.926 1162.564 -876.731 Weight 107.3 kg Intake: IV 290 240 40 Cefepime 1 gm In Sodium 50 Chloride 0.9% 50 ml @ 12. 5 mls/hr IVPB Q24H [facility] Rx #:[id number] Sodium Chloride 0.9% 500 240 240 40 ml 500 ml @ 10 mls/hr IV .Q24H [facility] Rx#:[id number] Intake, IV Titration 188.074 190.564 71.269 Amount Dexmedetomidine/0.9% NaCl 188.074 (Pmx) 400 mcg In Empty Bag 1 bag @ Titrate IV . Q0M [facility] Rx#:[id number] Dexmedetomidine/0.9% NaCl 190.564 71.269 (Pmx) 400 mcg In Empty Bag 1 bag @ Titrate IV . Q0M [facility] Rx#:[id number] Tube Feeding 672 672 112 Other 90 60 Output: Urine 0 0 0 Stool 1100 Hemodialysis 4000 Other: # Bowel Movements 1 ABP, PAP, CO, CI - Last Documented Arterial Blood Pressure 136/76 - Labs CBC & Chem 7: 10/22/20 05:25 10/22/20 05:25 Labs: Abnormal Lab Results - Last 24 Hours (Table) 10/21/20 10/21/20 10/21/20 Range/Units 10:33 11:44 17:26 WBC (3.8-10.6) k/uL RBC (3.80-5.40) m/uL Hgb (11.4-16.0) gm/dL Hct (34.0-46.0) % RDW (11.5-15.5) % Neutrophils # (Manual) (1.3-7.7) k/uL Metamyelocytes # (Man) (0) k/uL Myelocytes # (Manual) (0) k/uL Nucleated RBCs (0-0) /100 WBC ABG pCO2 (35-45) mmHg ABG pO2 (83-108) mmHg ABG HCO3 (21-25) mmol/L ABG Total CO2 (19-24) mmol/L ABG O2 Saturation (94-97) % BUN (7-17) mg/dL Creatinine (0.52-1.04) mg/dL Glucose (74-99) mg/dL POC Glucose (mg/dL) 256 H 260 H 288 H (75-99) mg/dL AST (14-36) U/L Total Protein (6.3-8.2) g/dL Albumin (3.5-5.0) g/dL 10/21/20 10/22/20 10/22/20 Range/Units 23:26 04:48 05:25 WBC 13.3 H (3.8-10.6) k/uL RBC 2.46 L (3.80-5.40) m/uL Hgb 7.2 L (11.4-16.0) gm/dL Hct 22.1 L (34.0-46.0) % RDW 17.7 H (11.5-15.5) % Neutrophils # (Manual) 10.37 H (1.3-7.7) k/uL Metamyelocytes # (Man) 0.27 H (0) k/uL Myelocytes # (Manual) 0.27 H (0) k/uL Nucleated RBCs 2 H (0-0) /100 WBC ABG pCO2 48 H (35-45) mmHg ABG pO2 65 L (83-108) mmHg ABG HCO3 28 H (21-25) mmol/L ABG Total CO2 30 H (19-24) mmol/L ABG O2 Saturation 92.9 L (94-97) % BUN (7-17) mg/dL Creatinine (0.52-1.04) mg/dL Glucose (74-99) mg/dL POC Glucose (mg/dL) 280 H (75-99) mg/dL AST (14-36) U/L Total Protein (6.3-8.2) g/dL Albumin (3.5-5.0) g/dL 10/22/20 10/22/20 Range/Units 05:25 06:27 WBC (3.8-10.6) k/uL RBC (3.80-5.40) m/uL Hgb (11.4-16.0) gm/dL Hct (34.0-46.0) % RDW (11.5-15.5) % Neutrophils # (Manual) (1.3-7.7) k/uL Metamyelocytes # (Man) (0) k/uL Myelocytes # (Manual) (0) k/uL Nucleated RBCs (0-0) /100 WBC ABG pCO2 (35-45) mmHg ABG pO2 (83-108) mmHg ABG HCO3 (21-25) mmol/L ABG Total CO2 (19-24) mmol/L ABG O2 Saturation (94-97) % BUN 42 H (7-17) mg/dL Creatinine 2.01 H (0.52-1.04) mg/dL Glucose 294 H (74-99) mg/dL POC Glucose (mg/dL) 352 H (75-99) mg/dL AST 45 H (14-36) U/L Total Protein 5.1 L (6.3-8.2) g/dL Albumin 2.4 L (3.5-5.0) g/dL Assessment and Plan Plan: Assessment: 1. Acute kidney injury secondary to ATN secondary to COVID-19 and DKA. Baseline creatinine is near 1. Started on hemodialysis on September 14. Has p-cath. Oliguric. No hydronephrosis noted on kidney ultrasound. 2. DKA s/p insulin drip and IV fluids. 3. Acute hypoxic respiratory failure secondary to COVID-19 pneumonia. Status post tracheostomy this admission. 4. Metabolic acidosis secondary to acute kidney injury and DKA s/p bicarb drip. Improved postdialysis. 5. Hyponatremia, hypervolemic. Stable. Blood sugar stable. 6. Hyperphosphatemia secondary to acute kidney injury. Maintained on Renvela. 7. Anemia of chronic illness and kidney disease. Maintained on Aranesp. Iron deficiency noted - s/p iv iron. 8. Fluid overload. Improving with daily ultrafiltration. Plan: Hemodialysis tomorrow. Maintain tube feeds. Avoid nephrotoxins. Continue to monitor renal function and urine output. Monitor for renal recovery. Wean FiO2.
--- NOTE | 2020-10-22 09:27 | P.PN ---
Subjective Progress Note Date: 10/22/20 10/22/2020, I'm seeing the patient for a follow-up. This morning, she is on a Precedex drip at 0.6 micrograms per kilogram per hour.she is awake. She communicates well. She is barely able to move her fingers and toes pH is unable to raise them against gravity. She has profound weakness. Also, the patient is still on mechanical ventilator. She assist-control mode rate of 32 with a tidal volume of 300 and FiO2 of 60% with a PEEP of 10. Blood gases from today showed a pH of 7.38 with a pCO2 of 48 and pO2 of 65. The chest x-ray from today shows no significant interval change in the patient that she is back to Diffuse bilateral pulmonary infiltrates unchanged from yesterday's evaluation. There is some cardiomegaly. No significant orotracheal secretions. On examination she has some scattered rhonchi. Her previous sputum culture was positive for Acinetobacter and the patient is currently on IV cefepime. Her white cell count has dropped in the morning white cell count today is at 13.3. Nevertheless, overnight, the patient had spikes of temperature with a T-max of 11.3. Repeat cultures will be done accordingly. The patient is currently off steroids. The patient's is slightly tachycardic and we have started on oral Cardizem for rate control. She is in sinus tachycardia. She is also slightly tachypneic. She is uncertain 400 mg by mouth twice a day. No other significant events overnight. He is tolerating her enteral feeding for nutritional support. Her last bout of dialysis was yesterday. Her volume status is improved considerably.She is post prolonged respiratory failure due to COVID-19 related ARDS/pneumonia.the blood sugars are slightly elevated. he is currently off Decadron and increased the Levemir dose for a tighter blood sugar control.I made an adjustment and increase her Levemir insulin up to 30 units once a day along with a slight scale coverage . Objective - Vital Signs Vital signs: Vital Signs Temp 99.6 F 10/22/20 08:00 Pulse 117 H 10/22/20 08:00 Resp 38 H 10/22/20 08:00 BP 107/63 10/22/20 08:00 Pulse Ox 97 10/22/20 08:00 Intake & Output 10/21/20 10/22/2010/22/21 18:59 06:59 18:59 Intake Total 5786.894 4354.564 223.269 Output Total 4000 0 1100 Balance -2759.926 1162.564 -876.731 Weight 107.3 kg Intake: IV 290 240 40 Cefepime 1 gm In Sodium 50 Chloride 0.9% 50 ml @ 12. 5 mls/hr IVPB Q24H [facility] Rx #:[id number] Sodium Chloride 0.9% 500 240 240 40 ml 500 ml @ 10 mls/hr IV .Q24H [facility] Rx#:[id number] Intake, IV Titration 188.074 190.564 71.269 Amount Dexmedetomidine/0.9% NaCl 188.074 (Pmx) 400 mcg In Empty Bag 1 bag @ Titrate IV . Q0M [facility] Rx#:[id number] Dexmedetomidine/0.9% NaCl 190.564 71.269 (Pmx) 400 mcg In Empty Bag 1 bag @ Titrate IV . Q0M [facility] Rx#:[id number] Tube Feeding 672 672 112 Other 90 60 Output: Urine 0 0 0 Stool 1100 Hemodialysis 4000 Other: # Bowel Movements 1 ABP, PAP, CO, CI - Last Documented Arterial Blood Pressure 136/76 - Exam GENERAL EXAM: Sedated, 35-year-old female patient, on assist control mode of ventilation , sedated with a combination of Precedex Opens up her eyes. Synchronous with the mechanical ventilator. No agitation. Does not follow any commands. HEAD: Normocephalic/atraumatic. EYES: Normal reaction of pupils, equal size. Conjunctiva pink, sclera white. NOSE: Clear with pink turbinates. THROAT: No erythema or exudates. NECK: Right internal jugular hemodialysis catheter placed. Tracheostomy tube secured in place. The patient has Bivona #8. No masses, no JVD, no thyroid enlargement, no adenopathy. CHEST: No chest wall deformity. Symmetrical expansion. LUNGS: Equal air entry with bilateral crackles CVS: Regular rate and rhythm, normal S1 and S2, no gallops, no murmurs, no rubs ABDOMEN: PEG tube exit site clean and dry. No hepatosplenomegaly, normal bowel sounds, no guarding or rigidity. EXTREMITIES: No clubbing, no edema, no cyanosis, 2+ pulses and upper and lower extremities. MUSCULOSKELETAL: Muscle strength and tone normal. SPINE: No scoliosis or deformity SKIN: No rashes CENTRAL NERVOUS SYSTEM: Patient is sedated with precedex - Labs CBC & Chem 7: 10/22/20 05:25 10/22/20 05:25 Labs: Abnormal Lab Results - Last 24 Hours (Table) 10/21/20 10/21/20 10/21/20 Range/Units 10:33 11:44 17:26 WBC (3.8-10.6) k/uL RBC (3.80-5.40) m/uL Hgb (11.4-16.0) gm/dL Hct (34.0-46.0) % RDW (11.5-15.5) % Neutrophils # (Manual) (1.3-7.7) k/uL Metamyelocytes # (Man) (0) k/uL Myelocytes # (Manual) (0) k/uL Nucleated RBCs (0-0) /100 WBC ABG pCO2 (35-45) mmHg ABG pO2 (83-108) mmHg ABG HCO3 (21-25) mmol/L ABG Total CO2 (19-24) mmol/L ABG O2 Saturation (94-97) % BUN (7-17) mg/dL Creatinine (0.52-1.04) mg/dL Glucose (74-99) mg/dL POC Glucose (mg/dL) 256 H 260 H 288 H (75-99) mg/dL AST (14-36) U/L Total Protein (6.3-8.2) g/dL Albumin (3.5-5.0) g/dL 10/21/20 10/22/20 10/22/20 Range/Units 23:26 04:48 05:25 WBC 13.3 H (3.8-10.6) k/uL RBC 2.46 L (3.80-5.40) m/uL Hgb 7.2 L (11.4-16.0) gm/dL Hct 22.1 L (34.0-46.0) % RDW 17.7 H (11.5-15.5) % Neutrophils # (Manual) 10.37 H (1.3-7.7) k/uL Metamyelocytes # (Man) 0.27 H (0) k/uL Myelocytes # (Manual) 0.27 H (0) k/uL Nucleated RBCs 2 H (0-0) /100 WBC ABG pCO2 48 H (35-45) mmHg ABG pO2 65 L (83-108) mmHg ABG HCO3 28 H (21-25) mmol/L ABG Total CO2 30 H (19-24) mmol/L ABG O2 Saturation 92.9 L (94-97) % BUN (7-17) mg/dL Creatinine (0.52-1.04) mg/dL Glucose (74-99) mg/dL POC Glucose (mg/dL) 280 H (75-99) mg/dL AST (14-36) U/L Total Protein (6.3-8.2) g/dL Albumin (3.5-5.0) g/dL 10/22/20 10/22/20 Range/Units 05:25 06:27 WBC (3.8-10.6) k/uL RBC (3.80-5.40) m/uL Hgb (11.4-16.0) gm/dL Hct (34.0-46.0) % RDW (11.5-15.5) % Neutrophils # (Manual) (1.3-7.7) k/uL Metamyelocytes # (Man) (0) k/uL Myelocytes # (Manual) (0) k/uL Nucleated RBCs (0-0) /100 WBC ABG pCO2 (35-45) mmHg ABG pO2 (83-108) mmHg ABG HCO3 (21-25) mmol/L ABG Total CO2 (19-24) mmol/L ABG O2 Saturation (94-97) % BUN 42 H (7-17) mg/dL Creatinine 2.01 H (0.52-1.04) mg/dL Glucose 294 H (74-99) mg/dL POC Glucose (mg/dL) 352 H (75-99) mg/dL AST 45 H (14-36) U/L Total Protein 5.1 L (6.3-8.2) g/dL Albumin 2.4 L (3.5-5.0) g/dL Assessment and Plan Plan: 1 Acute hypoxic respiratory failure secondary to COVID-19 pneumonia/ARDS, transferred to the intensive care unit on 09/11/2020 and intubated and placed on mechanical ventilator on 09/11/2020. Patient received 1 dose of Remdesivir on 09/11/2020, however based on her quick progression of her hypoxic respiratory failure she received Tocilizumab 800 mg on 09/11/2020. Tracheostomy and PEG tube placed on 09/18/2020. Patient remains in ARDS with diffuse infiltrates. We are still allowing permissive hypercapnia, low tidal volume ventilation. He is showing improvement in oxygenation. Chest x-ray findings are stable. patient is currently on a PEEP of 10 with an FiO2 of 60%. She is still on a low tidal volume of 300. Blood gases was noted. Chest x-ray was noted. Respiratory secretions are less and the patient was cultured to have Acinetobacter currently on IV cefepime.for now, no change in her overall respiratory status. PO2 from the morning blood gases 65. Other recommend keeping the same ventilator setting for now. Not ready for any further weaning 2 Acute kidney injury related to ATN, nephrology has been consulted, ultrasound of the kidneys showed no evidence of hydronephrosis. Patient was initiated on hemodialysis on 09/14/2020. Permacath placed 09/20/2020. Patient is undergoing daily dialysis. the last bout of hemodialysis was yesterday without a total of 4 L of fluid was taken off. 3 diabetes mellitus, insulin-dependent and the patient is currently on insulin sliding scale coverage with NovoLog, along with Levemir insulin 4 obesity with a BMI is down to 50 5 lovenox prophylaxis dose of 30 mg subcu every 24 hours 6 hypotension, recovered and the patient is currently on no pressors 7 Corneal injury, punctate keratitis, left eye 8 Anemia of chronic disease, post 1 unit rbc on 10/04/2020 9 Generalized anxiety disorder. 10 hypertriglyceridemia, currently off propofol and will utilizing a combination of Precedex and fentanyl. 11 leukocytosis, improving 12 Acinetobacter s in the respiratory secretions around the tracheostomy tube. Currently on IV cefepime.tach on is improving and the rest or secretions improved considerably. 13 encephalopathy/delerium , currently on Seroquel. the patient was taken off the fentanyl and the patient is only on Precedex for now. 14 sinus tachycardia, currently on oral Cardizem 15 episodic fever, still on an investigation Plan increase Cardizem 60 mg by mouth every 8 hours Increase the Levemir insulin up to 40 units a day along with signs the coverage Discontinue Decadron Wean Precedex gradually Continue Seroquel 100 mg by mouth twice a day No other ventilator changes for now Continue IV cefepime regarding the Acinetobacter infection. A total of 7-10 day course Repeat another set of blood culture and sputum culture in view of her underlying fever Enteral feeding for nutritional support Dialysis today Monitor neurologic functions Physical therapy for passive range of motion Lovenox 30 mg subcu every 24 hours Continue enteral feeding for nutritional support,vital HP adjustments were done on the dosing of enteral feeding and nutritional support Condition is critical. This is a critically care evaluation that was on a more than 30 minutes. Time with Patient: Greater than 30
[2020-10-22] MEDS ORDERED: DILTIAZEM ORAL 30 MG TAB PO ONE (09:30)
[2020-10-22] MEDS ORDERED: DILTIAZEM ORAL 60 MG TAB PO SCH (09:30)
[2020-10-22] MEDS: SODIUM CHLORIDE 0.9% 500 ML 500 ML IV SCH (09:50)
[2020-10-22 11:37] LABS: Glucose,Whole Blood 308 mg/dL (75-99)
[2020-10-22] MEDS: CEFEPIME 1 GM in SODIUM CHLORIDE 0.9% 50 ML IVPB SCH (13:50)
[2020-10-22] MEDS ORDERED: DEXMEDETOMIDINE/0.9% NACL(PMX) 400 MCG in EMPTY BAG 1 BAG IV SCH (14:00)
--- NOTE | 2020-10-22 15:07 | P.PN ---
Subjective Progress Note Date: 10/22/20 CHIEF COMPLAINT: Ventral dependent respiratory failure HISTORY OF PRESENT ILLNESS: The patient is a 35-year-old female with coronavirus pneumonia, ventilator dependent respiratory failure and tracheostomy and gastrostomy tube placement. Her blood sugars has been elevated. She continues to have temperatures although temperature curve has improved. She is on insulin. ROS: Temperature maximum 99.8 No new chest pain. Morbidly obese, BMI 47.5 PHYSICAL EXAM: VITAL SIGNS: Reviewed CONSTITUTIONAL: Well developed and in no acute distress. EYES: Conjuctivae without sclera icterus. Extraocular movements grossly intact. HEAD, EARS, NOSE, THROAT: Moist buccal mucosa. Head is atraumatic, normo cephalic. NECK: Tracheostomy intact RESPIRATORY: Non-labored respirations and equal bilateral excursions. CARDIOVASCULAR: Palpable 2+ radial pulses. Tachycardic ABDOMEN: Gastrostomy tube intact MUSCULOSKELETAL: No gross deformity of the lower extremities noted. No clubbing. No cyanosis. SKIN: Good skin turgor. Well perfused. NEUROLOGIC: Cranial nerves II through XII grossly intact. No focal or lateralizing signs. PSYCH: CLINICAL LABS: White blood cell improved 15,000 and 13,000. Creatinine stable 2.01 ASSESSMENT: 1. Coronavirus pneumonia 2. Ventilatory-dependent respiratory failure 3. Status post tracheostomy for prolonged intubation 4. Status post gastrostomy for inadequate protein malnutrition 5. Morbid obesity due to excess calories, BMI 47.5 6. Anemia status post blood transfusion 7. Sepsis 8. Acute renal failure and hemodialysis 9. Poorly controlled diabetes, hyperglycemia PLAN: 1. May need adjustment of tube feeds for low carbohydrates to monitor blood sugars 2. Continue IV antibiotics Objective - Vital Signs Vital signs: Vital Signs Temp 99.4 F 10/22/20 12:00 Pulse 128 H 10/22/20 13:00 Resp 33 H 10/22/20 13:00 BP 134/81 10/22/20 13:00 Pulse Ox 96 10/22/20 13:00 Intake & Output 10/21/20 10/22/20 10/22/20 18:59 06:59 18:59 Intake Total 7842.512 1318.564 663.269 Output Total 4000 0 0 Balance -2659.926 1162.564 663.269 Weight 107.3 kg Intake: IV 290 240 140 Cefepime 1 gm In Sodium 50 Chloride 0.9% 50 ml @ 12. 5 mls/hr IVPB Q24H [facility] Rx #:[id number] Sodium Chloride 0.9% 500 240 240 140 ml 500 ml @ 10 mls/hr IV .Q24H [facility] Rx#:[id number] Intake, IV Titration 288.074 190.564 71.269 Amount Dexmedetomidine/0.9% NaCl 288.074 (Pmx) 400 mcg In Empty Bag 1 bag @ Titrate IV . Q0M [facility] Rx#:[id number] Dexmedetomidine/0.9% NaCl 190.564 71.269 (Pmx) 400 mcg In Empty Bag 1 bag @ Titrate IV . Q0M [facility] Rx#:[id number] Tube Feeding 672 672 392 Other 90 60 60 Output: Urine 0 0 0 Hemodialysis 4000 Other: # Bowel Movements 1 ABP, PAP, CO, CI - Last Documented Arterial Blood Pressure 136/76 - Labs CBC & Chem 7: 10/22/20 05:25 10/22/20 05:25 Labs: Abnormal Lab Results - Last 24 Hours (Table) 10/21/20 10/21/20 10/22/20 Range/Units 17:26 23:26 04:48 WBC (3.8-10.6) k/uL RBC (3.80-5.40) m/uL Hgb (11.4-16.0) gm/dL Hct (34.0-46.0) % RDW (11.5-15.5) % Neutrophils # (Manual) (1.3-7.7) k/uL Metamyelocytes # (Man) (0) k/uL Myelocytes # (Manual) (0) k/uL Nucleated RBCs (0-0) /100 WBC ABG pCO2 48 H (35-45) mmHg ABG pO2 65 L (83-108) mmHg ABG HCO3 28 H (21-25) mmol/L ABG Total CO2 30 H (19-24) mmol/L ABG O2 Saturation 92.9 L (94-97) % BUN (7-17) mg/dL Creatinine (0.52-1.04) mg/dL Glucose (74-99) mg/dL POC Glucose (mg/dL) 288 H 280 H (75-99) mg/dL AST (14-36) U/L Total Protein (6.3-8.2) g/dL Albumin (3.5-5.0) g/dL 10/22/20 10/22/20 10/22/20 Range/Units 05:25 05:25 06:27 WBC 13.3 H (3.8-10.6) k/uL RBC 2.46 L (3.80-5.40) m/uL Hgb 7.2 L (11.4-16.0) gm/dL Hct 22.1 L (34.0-46.0) % RDW 17.7 H (11.5-15.5) % Neutrophils # (Manual) 10.37 H (1.3-7.7) k/uL Metamyelocytes # (Man) 0.27 H (0) k/uL Myelocytes # (Manual) 0.27 H (0) k/uL Nucleated RBCs 2 H (0-0) /100 WBC ABG pCO2 (35-45) mmHg ABG pO2 (83-108) mmHg ABG HCO3 (21-25) mmol/L ABG Total CO2 (19-24) mmol/L ABG O2 Saturation (94-97) % BUN 42 H (7-17) mg/dL Creatinine 2.01 H (0.52-1.04) mg/dL Glucose 294 H (74-99) mg/dL POC Glucose (mg/dL) 352 H (75-99) mg/dL AST 45 H (14-36) U/L Total Protein 5.1 L (6.3-8.2) g/dL Albumin 2.4 L (3.5-5.0) g/dL 10/22/20 Range/Units 11:35 WBC (3.8-10.6) k/uL RBC (3.80-5.40) m/uL Hgb (11.4-16.0) gm/dL Hct (34.0-46.0) % RDW (11.5-15.5) % Neutrophils # (Manual) (1.3-7.7) k/uL Metamyelocytes # (Man) (0) k/uL Myelocytes # (Manual) (0) k/uL Nucleated RBCs (0-0) /100 WBC ABG pCO2 (35-45) mmHg ABG pO2 (83-108) mmHg ABG HCO3 (21-25) mmol/L ABG Total CO2 (19-24) mmol/L ABG O2 Saturation (94-97) % BUN (7-17) mg/dL Creatinine (0.52-1.04) mg/dL Glucose (74-99) mg/dL POC Glucose (mg/dL) 308 H (75-99) mg/dL AST (14-36) U/L Total Protein (6.3-8.2) g/dL Albumin (3.5-5.0) g/dL Assessment and Plan (1) Respiratory failure requiring intubation Current Visit: Yes Status: Acute Code(s): J96.90 - RESPIRATORY FAILURE, UNSP, UNSP W HYPOXIA OR HYPERCAPNIA SNOMED Code(s): 052786482 (2) Morbid obesity due to excess calories Current Visit: Yes Status: Acute Code(s): E66.01 - MORBID (SEVERE) OBESITY DUE TO EXCESS CALORIES SNOMED Code(s): 908216338 (3) BMI 45.0-49.9, adult Current Visit: Yes Status: Acute Code(s): Z68.42 - BODY MASS INDEX [BMI] 45.0-49.9, ADULT SNOMED Code(s): 239970916 (4) Sepsis Current Visit: Yes Status: Acute Code(s): A41.9 - SEPSIS, UNSPECIFIED ORGANISM SNOMED Code(s): 01789181 (5) Anemia Current Visit: Yes Status: Acute Code(s): D64.9 - ANEMIA, UNSPECIFIED SNOMED Code(s): 145718314 (6) Pneumonia due to COVID-19 virus Current Visit: Yes Status: Acute Code(s): U07.1 - COVID-19; J12.82 - Pneumonia due to coronavirus disease 2019 SNOMED Code(s): 606625946474225666 (7) Inadequate dietary intake of protein Current Visit: Yes Status: Acute Code(s): E63.9 - NUTRITIONAL DEFICIENCY, UNSPECIFIED SNOMED Code(s): 125274262 (8) Acute renal failure Current Visit: Yes Status: Acute Code(s): N17.9 - ACUTE KIDNEY FAILURE, UNS PECIFIED SNOMED Code(s): 67412974 (9) Hyperglycemia Current Visit: Yes Status: Acute Code(s): R73.9 - HYPERGLYCEMIA, UNSPECIFIED SNOMED Code(s): 65156826
--- NOTE | 2020-10-22 15:38 | P.PN ---
Subjective Progress Note Date: 10/22/20 HISTORY OF PRESENT ILLNESS 35-year-old female patient of Dr. Arroyo with past medical history of type 2 diabetes comes in with acute shortness of breath associated with high light sugars. Patient on admission was found to have a fever of 101.5 pulse rate 125 respiratory rate 20. Blood pressure 132/106. On chest x-ray obtained in the ER suggestive of bilateral infiltrates concerning for call with pneumonia. COVID PCR was positive. On admissions patient had an ABG with a pH of 7.14 pCO2 of 20, pO2 of 59, bicarb of 7. Patient's blood sugar on admission was 424 on assessment today patient's blood work patient had a sodium 135 potassium 5.4 chloride 123 bicarb less than 5 and creatinine 0.73. D-dimer was elevated on admission patient 9 28 patient given 1 L of IV fluids followed by normal saline running at 200 mL/h. Patient was positive for acetone on admission. She will anion gap closed and was switched to D5NS. Insulin drip was continued during the night and was switched to patient's home medication this morning. One dose of remdesiver was ordered. Apparently around noon, A- team was called on the patient secondary to hypoxia patient's oxygen saturation dropped to the 70s and 80s on 100% nonrebreather. Patient was switched to BiPAP on 18/12 and is doing better o FiO2 of 80%. ABG was obtained and ph was 7. 14 pCO2 of 28 bicarb of 7 pO2 of 17. Patient noted to have uncompensated metabolic acidosis with compensated respiratory alkalosis. Stat dose of 1 amp bicarb was given and followed by sodium bicarbonate drip. Insulin drip restarted. Patient's initiated on dexamethasone 6 mg IV twice a day. Potassium phosphate ordered as phosphorus is low. Patient's repeat blood gases suggest a pH of 7.25, CO2 32 pO2 of 72 bicarb 14. I will not normal saline at 100 mL/h as patient's anion gap has increased. Patient given 1 dose of 2 mg of morphine with improvement in respiratory rate. One dose of Ativan 0.5 mg was given. Xanax 0.25 twice a day along with Ativan 0.5 IV every 6 hours ordered for the patient. Vitals were evaluated patient pulse 129 [id number]. She was moved to the ICU. Precedex drip was initiated. Lopressor was initiated at 25 twice a day. Metoprolol tartrate 5 mg IV every 6 hours. Systolic blood pressure more than 160. Started chest x-ray was obtained and suggest stable bilateral consolidation suggestive of COVID-19 pneumonia. 09/12 patient is seen in the ICU is currently mechanically ventilated and sedated on vent settings of respiratory rate 36, tidal volume 375 FiO2 80% PEEP of 18.. Vital signs reviewed patient had a temp of 100.4 pulse 150 respiratory rate 36 oxygen saturation 95% on 80% on fio2 .'s labs are reviewed which patient had a d-dimer 1.84 that is increased to 14.3. Arterial Blood gas suggest ph 7.35, CO2 40, po2 62, . Her BMP suggest a sodium 135 potassium 3.7 chloride 112 bicarb 21 creatinine 1.57 for calcitonin is 3.5 CRP is increased from 8.78.2 LDH is increased to 2614. Patient remains on Pneumovax, propofol drip. Lovenox increased to 50 subcu twice a day. Patient received 2 L of IV fluids. Continue IV fluids at 100 mL/h. Bicarb drip discontinued patient initiated on Zosyn 3.375 every 8 hours. Continue insulin drip at 4 units per hour. Patient is currently in prone positioning 09/13: Patient evaluated in the ICU remains on Ventilation continues to be sedated, in prone position. Vent settings are respiratory rate 36, tidal vital 375, FiO2 70% PEEP of 18. ABG shows pO2 of 82, PCO2 of 39, pH is 7.19. Latest labs show WBC 11.1, hemoglobin 13.2, d-dimer still pending, but yesterday was up to 14.3. Creatinine up to 3.4, BUN 24 sodium 137, potassium 4.0. Patient's urine output has been low, nephrology on consult. Bicarb drip increased to 100 miles an hour, receiving another liter of normal saline, she did have a ultrasound that showed unremarkable bilateral kidneys. Repeat chest x-ray showed bilateral lung infiltrates that are stable. Anion gap has closed, will start Lantus 10 units at at bedtime Novolog every 6 hours. 09/14: Patient is seen in the ICU, still currently mechanically ventilated and sedated. She continues in the prone position. Her oxygen quickly drops if she is not in prone. Patient's kidney function has worsened. Laboratory values show creatinine of 4.87, BUN 33, LDH 2191, C-reactive protein 2.7. ABG shows pH 7.32, pO2 of 60, pCO2 43. Patient is making almost no urine overnight. Nephrology is following patient continues on cefepime for urinary tract infection, culture is still pending. Vascular has been consulted for placement of temporary hemodialysis catheter for plans for dialysis. 09/15: Patient evaluated in the ICU, continues to be mechanically ventilated and sedated on assist control ventilation rate of 36, tidal volume 375, FiO2 100% and PEEP of 18. ABG today shows pO2 58, pCO2 of 45, and pH 7.35. She continues on tube feedings. Yesterday patient underwent ultrasound-guided right internal jugular non-tunneled hemodialysis catheter placement. Patient underwent hemodialysis treatment last night and plans have another hemodialysis treatment today. She continues to make almost no urine. She continues on cefepime for antibiotic coverage, and continues on Decadron and Lovenox. 09/16: Patient seen on follow-up remains in the ICU mechanically ventilated and sedated. She continues on assist control rate of 36, tidal volume 375, FiO2 100% and PEEP of 20. PEEP had to be increased due to patient had to be in supine position for dialysis, will go back to prone position once dialysis is complete. ABG shows pH 7.32, pCO2 49, PaO2 61. Laboratory values showed WBC 11.2, hemoglobin 11, sodium 134, creatinine 4.44, BUN 38. Urine culture shows no growth, blood cultures show no growth to date. Repeat chest x-ray shows bilateral pleural effusions, correlate for ARDS, pulmonary edema, diffuse pneumonia, findings are stable from last exam. Patient does not require any pressors, blood pressure 133/57, heart rate 78. 5/16: Patient was evaluated in the ICU today for follow-up. She continues to be intubated and on mechanical ventilation. Current vent settings are tidal volume 375, FiO2 100% and PEEP of 20. ABG shows pH 7.37, pCO2 40, pO2 102. She continues with intermittent prone positioning. Patient continues to have almost no urine output, maintained on dialysis. Patient received dialysis yesterday without complication. Laboratory values revealed WBC 10.3, hemoglobin 10.4, sodium 132, potassium 3.1, BUN 33, creatinine 4.29, LDH 1913, C-reactive protein 1.3. Urine and sputum cultures are negative, blood cultures show no growth to date. Consult placed to dietary to start TPN[ ] 09/18: She remains in the intensive care unit intubated and on mechanical ventilation with tidal volume 375, FiO2 60 and PEEP of 20. Patient is being prone to daily at approximately 16 hours per day. Pulmonary medicine has added in Dr. Zhang to do PEG tube and trach today. Patient is not on vasopressors. Repeat blood work reveals WBC 12.6, hemoglobin 9.8, platelet count 212. Sodium 133, potassium 3.2, chloride 102, CO2 21, BUN 35 and creatinine 4.12. Blood sugar 126. Patient underwent hemodialysis yesterday with removal of 2 L and is scheduled again today with goal of 2-3 L and is scheduled again tomorrow. 09/19: She is scheduled for hemodialysis today and is off fentanyl temporarily. Patient is status post trach and PEG tube yesterday. And she remains on mechanical ventilation. Pulse ox 93-95%. She has been afebrile, heart rate 64, respiratory rate 36, blood pressure 115/50. Fentanyl is off to improve blood pressure for hemodialysis which is scheduled for today. Contacted vascular surgery about permanent hemodialysis catheter. Repeat blood work reveals WBC 14.3, hemoglobin 9.6, platelet count 200. D-dimer 6.48. LDH 1686. C-reactive protein 1.1. BUN 34 creatinine 3.81. Sodium 130, potassium 3.5, chloride 101, CO2 18. Blood sugars running between 101 198. Plan is to wean off Pneumovax today. Patient remains on insulin drip. Repeat chest x-ray reveals bilateral multifocal confluent opacities consistent with COVID-19. Some improved aerati on periphery of the left lung and worsening opacities throughout the right lung. 09/20: She remains in the intensive care unit on mechanical ventilation. She has been afebrile, heart rate 65, respiratory rate 37, blood pressure 121/70, pulse ox 91-99%. Repeat blood work reveals WBC 14.5, hemoglobin 9.1, platelet count 216. D-dimer 6.13. Sodium 133, potassium 3.1, chloride 102, CO2 18, BUN 35 and creatinine 4.27. Blood sugars running between 128 and 143. LDH 1717. C- reactive protein 1.7. Patient remains on insulin drip which will be transitioned to NovoLog scale every 6 hours. Patient is scheduled for permanent hemodialysis catheter placement today with vascular surgery. Repeat chest x-ray reveals stable diffuse bilateral interstitial and airspace disease. Possible small right effusion. His work is following for transfer to [facility] facility. Do not anticipate discharge until next week. 09/21: Patient is undergoing hemodialysis. She remains on mechanical ventilation with tidal volume 375, FiO2 down to 45 and PEEP was decreased to 15. Patient is continued on propofol, fentanyl drips. She is on tube feedings at goal. Patient was taken off insulin drip yesterday and on scale only but blood sugars are running in the 200s, Levemir scheduled at bedtime will be added. Other blood work reveals WBC 13.3, hemoglobin 8.7, platelet count 192. Sodium 137, potassium 3.6, chloride 107, CO2 18, BUN 34 and creatinine 4.21. Repeat chest x-ray is stable. 09/22: She remains in the intensive care on mechanical ventilation with tidal volume 375, FiO2 of 50 and PEEP of 10. Pulse ox is running 96%. She is afebrile, heart rate in the 50s, respiratory rate 36, blood pressure 100/64. Repeat blood work reveals WBC 16.5, hemoglobin 8.9, platelet count 213. Sodium 134, potassium 3.7, chloride 103, CO2 21, BUN 34 and creatinine 3.89. Blood sugars running in the 200s to 324. Levemir increased to 16 units at bedtime and continue NovoLog scale every 6 hours. Patient is on tube feedings at goal. She has a Haley catheter in with a scant amount of dark/brown urine. Fecal management system is in place. Repeat chest x-ray reveals diffuse bilateral airspace infiltrates persist unchanged. Patient is scheduled for hemodialysis tomorrow morning on Friday. 09/23: Patient remains on mechanical ventilation with tidal volume 3.75, FiO2 50 and PEEP of 10. monitor car operator sinus rhythm. She has no urine output. Fecal management system is in place. She is undergoing dialysis at this time with plan for removal of 2-1/2 L. She has been afebrile, heart rate in the 50s, respiratory rate 36, blood pressure 108/76 and pulse ox 89%. WBC 13.6, hemoglobin 9.1, platelet count 194. Sodium 136, potassium 3.0 and was replaced, chloride 106, CO2 21, BUN 49 creatinine 5.31. Blood sugars are running between 182 and this morning 194. Patient was still in the 200s and 300s. Levemir last evening was increased to 16 units. Patient remains on propofol and fentanyl dri ps. Lovenox was increased to 60 mg twice daily. 09/24: PEEP was increased today to 20, tidal volume is at 375 and FiO2 of 50%. Patient has been afebrile. She has been started on levo fed. Repeat chest x- ray reveals bilateral multifocal confluent opacities consistent with Covid 19 or ARDS redemonstrated. Nephrology will plan dialysis for tomorrow for 3 L. Patient remains on propofol fentanyl and Nimbex. WBC 12.5, hemoglobin 9.8, platelet count 161. D-dimer 13.3. Sodium 132, potassium 3.4, chloride 102, CO2 20, BUN 48 and creatinine 4.67. Blood sugars extremely elevated to 96-409. LDH 2217. 09/25: Patient remains in the intensive care unit on mechanical ventilation with tidal volume 375, FiO2 50 and PEEP of 20. Patient is afebrile, heart rate 61, respiratory rate 36, blood pressure 102/56, pulse ox 97%. Repeat blood work reveals WBC 9.3, hemoglobin 8.5 and platelet count 171. Sodium 130, potassium 3.7, chloride 100, CO2 20, BUN 61 creatinine 5.65. Blood sugars have been walt vated up to 455. Levemir increased to 20 units twice daily, NovoLog 5 units every 6 hours and continue NovoLog scale. Patient is scheduled for hemodialysis today. Repeat chest x-ray reveals bilateral multifocal and confluent opacities. Decadron and Lovenox dosing change by pulmonary. Patient is off norepinephrine. 09/26: Patient remains in the intensive care unit on mechanical ventilation with tidal volume 375, FiO2 50 and PEEP of 15. She has been afebrile, heart rate 91, blood pressure 114/68, pulse ox 99%. monitor car operator sinus rhythm. 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 Sodium 134, potassium 3.6, chloride 102, CO2 22, BUN 41 creatinine 4.21. Patient has improved blood sugars this morning running 150s and 160s. Diabetic medications were adjusted yesterday. Patient is awake and alert and interacting. Yesterday, patient had PICC line inserted by interventional radiology. Repeat chest x-ray reveals diffuse airspace infiltrates in both lung ann appear to progress slightly in the interval. 09/27: Patient remains in intensive care unit on mechanical ventilation with improvement of settings with tidal volume 375, FiO2 decreased to 40 and PEEP decreased to 10. Patient is on hemodialysis every other day and plan to remove 3 L today. Patient is more awake and alert. She is slow to respond but is able to follow simple commands. Blood sugars are running between 84 and 123. Repeat blood work reveals WBC 7.1, hemoglobin 8.1, platelets 152. Sodium 135, potassium 3.6, chloride 103, CO2 21, BUN 53 and creatinine 5.88. Repeat chest x -ray revealed cardiomegaly and pulmonary edema. Patient is on tube feedings:. Patient is not require vasopressors and is off sedation. Fecal management system remains in place for brown liquid stool. C. difficile was negative. 09/28: Patient remains on mechanical ventilation with tidal volume 375, FiO2 increased to 80 and PEEP increased to 18. Patient had a rough night was very anxious, no pain. Xanax 0.25 mg 3 times daily was added. There is concern for pulmonary embolism for which patient was started on heparin drip, she is unable to undergo CAT scan. Venous Doppler bilateral lower extremities was nondiagnostic due to extensive edema in obese patient but minimal imaging of the popliteal veins does show flow. Repeat echocardiogram has been ordered. Cefepime has also been ordered at 1 g IV piggyback every 24 hours as well as vancomycin, pharmacy dosing. Patient is back on fentanyl drip, propofol drip and norepinephrine. Blood sugars are elevated and insulin Levemir will be increased to 25 mg twice daily. Ferrlecit infusion has been ordered by nephrology for 4 days. Patient is undergoing hemodialysis today.temperature max 100.2, heart rate 134, respiratory rate 34, blood pressure 120/65, pulse ox 94%. monitor car operator is sinus tachycardia. Repeat blood work reveals WBC 16.9, hemoglobin 9.7, platelet count 216. D-dimer 8.81. Sodium 134, potassium 3.8, chloride 99, CO2 25, BUN 43 and creatinine 5.36. Blood sugars in the 200s. AST 40. 09/29 Patient had declined more last 48 hours require more sedation, patient is doing hemodialysis, respiratory failure is quite bit worse this time. Patient was inquired the pain is well back on fentanyl drip. Her vent set up with PEEP is limited but higher. No new finding on culture and her chest x-ray continues shows diffuse infiltrate persistent although there is a moderate interval improvement. 09/30 patient's was seen and evaluated. PEEP was reduced to 11 as patient is maintaining good saturation at the current vent settings. 10/01 patient was seen at bedside. She is currently on assist control rate of 28 white tidal volume 350 FiO2 50% and PEEP of 10 which has been reduced by pulmonary as patient name cleaning her oxygen saturation. Arm blood gas was obtained with a pH of 7.35 pCO2 37 pO2 of 63. She remains hemodynamically stable with no need for pressors. Labs were reviewed patient's BUN is 29 cre atinine 3.93 glucose 122 albumin 2.2 sodium 131 chloride 19 hemoglobin is downtrending with a Hb of 7.3 no leukocytosis 7.1. Patient's urine output is minimal at this time. Her rate has increased to 129 and is currently on positive fluid balance even with dialysis. Last dialysis was done yesterday. Continue enteral feeding currently at goal. Antibiotic has been discontinued and continues to remain on DEXA methicillin 4 mg IV daily. 10/02 patient continues to be on trach support with mechanical ventilation. Patient was evaluated by microstrategy architect and was switched to VC control as patient was noted to be double stacking on and off throughout the night. Respiratory rate continue to 28 tidal volume increased to 400 with a PEEP for Dr. Downey. Patient is maintaining oxygen saturation 91% on the current setting. According to the nurse bedside patient saturation drops significantly or she is moved or her sedation is dropped. Patient is currently on propofol drip, fentanyl drip. She did underwent dialysis today and was able to maintain her low pressure without the need of pressors. Labs reviewed today suggest a WBC of 6.7 hemoglobin of 7.0 and d-dimer 3.9 bicarb 17 BUN 38 creatinine 4.8. LDH is 964. Sodium 1:30 likely secondary to volume overload. Urine sodium and urine osmolality ordered. Patient's glucose this morning is 146. Continue to remain on enteral feeding. Urine output is reduced. Fall catheter will be placed today. Continue to remain on dialysis. 10/03: Patient remains on mechanical ventilation and is back on propofol and fentanyl drips. Patient is currently on VC control with tidal volume 400, FiO2 55 and PEEP of 12. Patient still is not making any urine and is dialysis dependent with next treatment planned for tomorrow with removal of 3-3-1/2 L. PEG tube feedings are at goal. Fecal management system remains in place. At the time of evaluation, patient is off levophed. Repeat chest x-ray reveals stable diffuse bilateral airspace disease correlate for ARDS, pulmonary edema or diffuse pneumonia. Temperature max last evening was 101. Temperature currently 99, heart rate 106, respiratory rate 32, blood pressure 101/50, pulse ox 86%. Repeat blood work reveals WBC 6, hemoglobin 7.4, platelet count 160. D-dimer 4.05. Sodium 133, potassium 3.5, chloride 100, CO2 23, BUN 31 creatinine 3.8. Blood sugars are running between 100 and 170. Ferritin 1514. Liver function test normal. LDH 1016, C-reactive protein 13.6. Prognosis remains guarded. 10/04: Patient remains intubated on mechanical ventilation with tidal volume 400, FiO2 65, PEEP of 14. Patient continues to run fevers and repeat blood culture and urine and urine culture ordered for today. Haley catheter has been removed this patient has no significant urine output at about 20 mL per shift. BladderScan is monitored for greater than 300 and the patient is straight cathed. Hemoglobin is 6.8 and she has been ordered 41 unit of packed RBCs today. She is currently on propofol and fentanyl drips. She is scheduled for hemodialysis today. WBC 4.5, hemoglobin 6.8, platelet count 151. D-dimer 3.28. Sodium 132, potassium 4.1, chloride 100, CO2 22, BUN 37 creatinine 4.74. Blood sugars running between 97 and 110. Ferritin 1801. LDH 859. C-reactive protein 14.4. Chest x-ray reveals correlate for pneumonia, edema, ARDS. Prognosis remains guarded. 10/05: Patient remains in intensive care unit currently on mechanical ventilation with tidal volume 400, FiO2 was increased to 100 and PEEP is at 14. She continues to run fevers which have worsened with temperature max 103.1. She has been tachycardic in the 130s, blood pressure is marginal but not on vasopressors. Pulse ox currently 92%. Repeat blood work reveals WBC 5.5, hemoglobin 7.6, platelet count 190. D-dimer 2.7, ferritin 1770, LDH 932, C- reactive protein 21.4. Blood sugars are running between 100 1669. Electrolytes are normal. BUN 27 and creatinine 3.79. Pancultures were done yesterday including a straight cath for urine culture, sputum culture and blood culture. Arterial line was removed as well as midline. She is currently on propofol, fe ntanyl and started on Nimbex today. 10/06: Patient remains in the intensive care unit. Today patient in prone position and remains on mechanical ventilation with tidal volume 350, FiO2 65 and PEEP of 14. Her last documented fever was yesterday at 2 PM. Heart rate is in the 120s, respiratory rate 32, pulse ox 88-92%. CBC is unremarkable. Electrolytes are normal. BUN 30 creatinine 2.93. Blood sugars are running between 135 and 164. Cultures from October 04: Blood culture no growth, sputum culture finalized, urine culture finalized. Catheter tip culture is in process. Repeat chest x-ray shows bilateral interstitial infiltrates. Patient is on tube feedings of Nepro at goal of 30 ML's per hour. Patient underwent dialysis yesterday and is scheduled for repeat dialysis today. 10/07: Patient maintains in the intensive care unit intubated and on mechanical ventilation. She is receiving hemodialysis this morning has been every day. Plan is to remove 2-1/2 L today. Vent settings have changed today with tidal volume 350, FiO2 was increased to 100% and PEEP remains at 14. She has been continued on Nimbex, fentanyl, norepinephrine and propofol. Plan is to prone position patient following dialysis. Repeat chest x-ray reveals worsening interstitial infiltrates. BUN is 26 and creatinine 2.59. LDH 955, C-reactive protein 22.1. Prognosis remains poor. 10/08: Patient remains in intensive care unit intubated and on mechanical ventilation with tidal volume 350, FiO2 60, PEEP of 14. She is pronating today. She is scheduled for hemodialysis on a daily basis. She has been afebrile, heart rate 112, respiratory rate 36, blood pressure 161/88, pulse ox 93%. Repeat blood work reveals WBC 9.9, hemoglobin 9.1, platelet count 320. Sodium 133, potassium 5.3, chloride 100, CO2 20, BUN 29 creatinine 2.44. Blood sugar running between 102 and 139. LDH 1026, C-reactive protein 19.7. 10/09: Patient is undergoing dialysis this morning. She continues to be intubated and on mechanical ventilation with tidal volume 350, 270 and PEEP of 14. Patient is also on propofol, Nimbex, norepinephrine and fentanyl drips. Repeat chest x-ray reveals persistent bilateral multifocal and confluent opacities consistent with Covid 19. She is afebrile, heart rate 116, respiratory rate 36, blood pressure 120/65, pulse ox 91%. Repeat blood work reveals WBC 5.4, hemoglobin 9.2, platelet count 216. D-dimer 2.67, ferritin 2568, LDH 794, C- reactive protein 13.9. Blood sugars have been running 90-104. Creatinine 1.64. She is on daily dialysis treatment. 10/10: She remains in the intensive care unit. She is now out of isolation as a repeat Covid test came back negative. She remains on mechanical ventilation with tidal volume 350, FiO2 70 and PEEP of 14. Patient is also on Nimbex, propofol, norepinephrine, fentanyl drips. She is on PEG tube feedings at goal and tolerating well. Repeat blood work reveals WBC 7.8, hemoglobin 7.5, platelet count 267. Sodium 139, potassium 3.9, chloride 109, CO2 20, BUN 20 creatinine 1.29. Blood sugars are running between 76 and 102. Scheduled Nov oLog decreased to 3 units. Repeat chest x-ray reveals moderate cardiomegaly and continued pulmonary edema. Slight interval improvement. Patient is continued on daily hemodialysis. 10/11: Patient remains in intensive care unit on mechanical ventilation with tidal volume 325, FiO2 70, PEEP 14. She is currently being prone. She underwent hemodialysis this morning with removal of 4 L of fluid with plan to continue daily treatment. She is currently on Nimbex, fentanyl and propofol. No vasopressor at this time. Fecal management system remains in place. She is on tube feedings currently at hold due to prone positioning. Patient has been afebrile, heart rate 116, respiratory rate 36, blood pressure 100/58, pulse ox 93-96%. Repeat blood work reveals WBC 9.3, hemoglobin 8.1, platelet count 276. Sodium 136, potassium 4.3, chloride 103, CO2 20, BUN 20 creatinine 1.14. Blood sugars running between 133 and 202. 10/12: Patient remains in the intensive care unit. She is undergoing hemodial ysis this morning. She's been afebrile, heart rate in the 120s, respiratory rate 32, blood pressure 102/65. She is not on vasopressors. She is continued on Nimbex, fentanyl and propofol. Vent settings are currently tidal volume 325, FiO2 70, PEEP 14. Total platelet count 273. Sodium 133, potassium 4.7, chloride 100, CO2 19, BUN 21 creatinine 0.91. Blood sugars running between 121 and 143. 10/13: Patient remain in the ICU she is on hemodialysis daily, she is still on the vent with a PEEP of 14 and FiO2 of 70. Her oxygenation is marginal pulse rate still high. Patient had scratched cornea was seen in ophthalmology decided to keep doing eyedrops along with eye patch at this point. Prognosis still very bad this point. 10/14: She remains on mechanical ventilation with tidal volume 325, FiO2 70% and PEEP of 14. She did require label fed last evening for about 6 hours. She did not tolerate pronating yesterday. She is undergoing dialysis this morning with plan for removal of 4 L. Blood sugars have been low and IV fluids changed to D10 until blood sugars have recovered. Levemir and scheduled NovoLog discontinued. Patient is on tube feedings at goal there's been no change in t his. 10/15 patient remains on mechanical ventilation in the intensive care unit. FiO2 still at 70%, PEEP of 18. Blood sugars have improved since medications were adjusted. White blood cells 33.9, hemoglobin 8.5, sodium 135, BUN 19, creatinine 0.96. Patient to receive dialysis again today. Patient did run a low-grade fever throughout the night and pro calcitonin level is ordered. Chest x-ray showed continued diffuse bilateral airspace disease. Patient remains on tube feedings at goal. 10/16: Patient remains on mechanical ventilation with tidal volume 300, FiO2 70, PEEP of 15. Fecal management system is out. She is currently on low dose of norepinephrine. She is also on fentanyl drip, propofol drip, rocuronium drip. Heart rate is running in the 130s, sinus rhythm, blood pressure 121/63, pulse ox 95%. Patient is been afebrile. Repeat blood work reveals WBC 18.9, hemoglobin 7.5, platelet count 291. Sodium 135, potassium 4.2, chloride 101, CO2 19, BUN 25 and creatinine 1.36. Blood sugars are running between 143 and 199. Patient is on scale insulin only. Repeat chest x-ray reveals persistent bilateral multifocal and completed opacities consistent with Covid 19. 10/17: Patient remains on mechanical ventilation with tidal volume 300, FiO2 50, PEEP of 14. She is currently receiving hemodialysis. The patient is having yellow-colored drainage from the trach site. This is going to be culture today. Repeat blood work reveals WBC of 24, hemoglobin 7.3 and platelet count 310. Sodium 136, potassium 4.1, chloride 101, CO2 19, BUN 24 creatinine 1.43. Blood sugar 139. Capillary blood glucose running 147 and 189. Repeat chest x-ray is unchanged. Patient had increased respiratory rate 40s and 50s with oxygen saturation of 87 and now was increased and Seroquel added this morning. Prognosis remains guarded. 10/18: Patient remains on mechanical ventilation with tidal volume 300, FiO2 60, PEEP has been decreased to 12. Patient will need a PEEP of 8 in order to tr ansfer to long-term care. She is currently on fentanyl drip and Precedex drip. Patient is tracking when her name is stated. She seems to be slightly improved today. Patient has been afebrile, heart rate 106, respiratory rate 32, blood pressure 110/61, pulse ox 98%. Repeat blood work reveals WBC 30.3, hemoglobin 7.2, platelet count 350. Sodium 139, potassium 4.2, chloride 103, CO2 20, BUN 23 creatinine 1.79. Blood sugars are increasing running up 299. Patient will be placed on Levemir. Secretions from tracheotomy sent for culture and in process. She is currently undergoing hemodialysis. 10/19, patient still is in the vent with tracheostomy, PEEP of 12, left radial arterial line line was performed today. Patient has Acinetobacter growing on sputum cultures, still with leukocytosis however it's improving, IV cefepime was started today, hemodialysis performed today, and repeat again in the morning per Dr. Evans's recommendation, 1-1.5 L ultrafiltration creatinine 1.38, wbc count 19.9 hemoglobin 7.2 has hyperglycemia now without hypoglycemia, increase Levemir to 8 units 10/20 patient remains in ICU, still with ventilatory support, PEEP of 11, no fevers, blood sugars remains to be elevated, however his blood sugars are elevated with the maximize titration of enteral nutrition, vital AF 1.2 ingris per mL, approximately 1600 ingris per day, receiving at least 1400 mL per day, with increasing Levemir to 16 units, and NovoLog coverage at 4 units every 6 hours, while on tube feedings. Still on IV Decadron 2 mg daily, creatinine at 1.88, dialysis scheduled for Friday, and plan for dialysis holiday on Friday. 10/21: Patient's alert awake, still with no focalization sounds, she is symmetric, she is now following commands, still on ventilatory support, PEEP of 8.5, pulse ox 96% with mechanical ventilation, heart rate 1:15, blood pressure 94 systolic to 117 systolic tablets count is trending downwards, with the current level of 15, blood sugars need to be readjusted as she is now on full dose enteral feeding, blood sugar is trending between 260-398, Levemir increased to 30 units, keep on the NovoLog coverage at 4 units every 6 hours, dexamethasone is discontinued, patient is tachycardic, has a when necessary order of Lopressor 5 mg IV every 6 hours when necessary multiple specialists following IV cefepime, for Acinetobacter pneumonia, 10/22: Patient remains in ICU, alert awake, still following commands, ventilatory support, PEEP between 8-9, blood sugars are still elevated, 300-350, microstrategy architect has increased the Levemir to 30 units,today, she will need between 50-60 units of Levemir estimated, with the current enteral feeds we will increase NovoLog to 7 units pre-meal, will need adjustment of Levemir down the line. Plan for long- term trach still specialty care management, once cleared by pulmonary REVIEW OF SYSTEMS Unable to obtain due to mechanical ventilation. Objective - Vital Signs Vital signs: Vital Signs Temp 99.4 F 10/22/20 12:00 Pulse 124 H 10/22/20 15:00 Resp 34 H 10/22/20 15:00 BP 143/89 10/22/20 15:00 Pulse Ox 97 10/22/20 15:00 Intake & Output 10/21/20 10/22/20 10/22/20 18:59 06:59 18:59 Intake Total 4785.591 1163.564 865.269 Output Total 4000 0 0 Balance -2659.926 1162.564 865.269 Weight 107.3 kg Intake: IV 290 240 230 Cefepime 1 gm In Sodium 50 50 Chloride 0.9% 50 ml @ 12. 5 mls/hr IVPB Q24H [facility] Rx #:[id number] Sodium Chloride 0.9% 500 240 240 180 ml 500 ml @ 10 mls/hr IV .Q24H [facility] Rx#:[id number] Intake, IV Titration 288.074 190.564 71.269 Amount Dexmedetomidine/0.9% NaCl 288.074 (Pmx) 400 mcg In Empty Bag 1 bag @ Titrate IV . Q0M [facility] Rx#:[id number] Dexmedetomidine/0.9% NaCl 190.564 71.269 (Pmx) 400 mcg In Empty Bag 1 bag @ Titrate IV . Q0M [facility] Rx#:[id number] Tube Feeding [phone] Other 90 60 60 Output: Urine 0 0 0 Hemodialysis 4000 Other: # Bowel Movements 1 ABP, PAP, CO, CI - Last Documented Arterial Blood Pressure 136/76 - Constitutional General appearance: Present: no acute distress - EENT ENT: Present: hearing grossly normal - Neck Neck: Present: normal ROM - Respiratory Respiratory: bilateral: rhonchi - Gastrointestinal General gastrointestinal: Present: normal bowel sounds - Integumentary Integumentary: Present: normal - Musculoskeletal Musculoskeletal: Present: generalized weakness - Labs CBC & Chem 7: 10/22/20 05:25 10/22/20 05:25 Labs: Abnormal Lab Results - Last 24 Hours (Table) 10/21/20 10/21/20 10/22/20 Range/Units 17:26 23:26 04:48 WBC (3.8-10.6) k/uL RBC (3.80-5.40) m/uL Hgb (11.4-16.0) gm/dL Hct (34.0-46.0) % RDW (11.5-15.5) % Neutrophils # (Manual) (1.3-7.7) k/uL Metamyelocytes # (Man) (0) k/uL Myelocytes # (Manual) (0) k/uL Nucleated RBCs (0-0) /100 WBC ABG pCO2 48 H (35-45) mmHg ABG pO2 65 L (83-108) mmHg ABG HCO3 28 H (21-25) mmol/L ABG Total CO2 30 H (19-24) mmol/L ABG O2 Saturation 92.9 L (94-97) % BUN (7-17) mg/dL Creatinine (0.52-1.04) mg/dL Glucose (74-99) mg/dL POC Glucose (mg/dL) 288 H 280 H (75-99) mg/dL AST (14-36) U/L Total Protein (6.3-8.2) g/dL Albumin (3.5-5.0) g/dL 10/22/20 10/22/20 10/22/20 Range/Units 05:25 05:25 06:27 WBC 13.3 H (3.8-10.6) k/uL RBC 2.46 L (3.80-5.40) m/uL Hgb 7.2 L (11.4-16.0) gm/dL Hct 22.1 L (34.0-46.0) % RDW 17.7 H (11.5-15.5) % Neutrophils # (Manual) 10.37 H (1.3-7.7) k/uL Metamyelocytes # (Man) 0.27 H (0) k/uL Myelocytes # (Manual) 0.27 H (0) k/uL Nucleated RBCs 2 H (0-0) /100 WBC ABG pCO2 (35-45) mmHg ABG pO2 (83-108) mmHg ABG HCO3 (21-25) mmol/L ABG Total CO2 (19-24) mmol/L ABG O2 Saturation (94-97) % BUN 42 H (7-17) mg/dL Creatinine 2.01 H (0.52-1.04) mg/dL Glucose 294 H (74-99) mg/dL POC Glucose (mg/dL) 352 H (75-99) mg/dL AST 45 H (14-36) U/L Total Protein 5.1 L (6.3-8.2) g/dL Albumin 2.4 L (3.5-5.0) g/dL 10/22/20 Range/Units 11:35 WBC (3.8-10.6) k/uL RBC (3.80-5.40) m/uL Hgb (11.4-16.0) gm/dL Hct (34.0-46.0) % RDW (11.5-15.5) % Neutrophils # (Manual) (1.3-7.7) k/uL Metamyelocytes # (Man) (0) k/uL Myelocytes # (Manual) (0) k/uL Nucleated RBCs (0-0) /100 WBC ABG pCO2 (35-45) mmHg ABG pO2 (83-108) mmHg ABG HCO3 (21-25) mmol/L ABG Total CO2 (19-24) mmol/L ABG O2 Saturation (94-97) % BUN (7-17) mg/dL Creatinine (0.52-1.04) mg/dL Glucose (74-99) mg/dL POC Glucose (mg/dL) 308 H (75-99) mg/dL AST (14-36) U/L Total Protein (6.3-8.2) g/dL Albumin (3.5-5.0) g/dL Assessment and Plan Plan: ASSESSMENT AND PLAN 1. Acute hypoxic respiratory failure secondary to Covid 19 pneumonia and poss ible bacterial pneumonia. Patient was intubated on September 11. She is status post dose of Remdesivir and 1 dose of Tocilizumab. Continue Ventolin inhaler 4 times daily, Symbicort twice daily, Decadron completed and discontinued, Lovenox 30 mg subcu daily, supplements. Status post PEG tube and trach 09/18/20. Isolation precautions removed. 2. Acute diabetic ketoacidosis secondary to Covid 19 pneumonia, uncontrolled with hyperglycemia and DKA Resolved, blood sugar titration monitoring 3. Metabolic encephalopathy secondary to Covid 19 and DKA. 4. Sepsis and septic shock secondary to Covid 19 pneumonia with multiorgan failure. Continue as in #1. Trach drainage culture to be obtained. 5. Acute metabolic acidosis secondary to acute DKA, Covid 19 and acute kidney injury. Sodium bicarb 650 mg 3 times daily, Renvela 1600 mg 3 times daily.. 6. Diabetes mellitus type 2 uncontrolled with A1c 13.6. Continue as above. Increase to 1 30 units Levemir, she will need approximately 50-60 units or more off Levemir, consider adding Actos with scale, increases 7 units NovoLog every 6 hours enteral feeds, vital AF, 1.2 ingris per mL, calculated at 1600 ingris per day 7. Hypophosphatemia status post replacement. On Renvela 8. Hyperkalemia secondary to DKA, resolved. 9. Sinus tachycardia secondary to sepsis, volume deficiency. 10. Acute kidney injury secondary to ATN secondary to Covid 19 and DKA currently on the soria for catheter has been discontinued Continue daily hemodi alysis. Permanent dialysis catheter placed. 11. Acinetobacter baumanihaemolytica pneumonia versus MRSA pneumonia. Completed course of antibiotics. 12. Hypertension. 13. Morbid obesity with BMI of 53. 1600 ingris per day with enteral feedings, vital AF 1.2 14. DVT prophylaxis. Lovenox. 15. GI prophylaxis. Protonix 40 mg IV push daily. 16. Iron deficiency anemia, on iron and aaranesp 40 g every 7 days CODE STATUS: Full code Prognosis poor. DISCHARGE PLAN [facility] Acute Care probably select specialty Impression and plan of care have been directed as dictated by the signing physician. Kimberly Boswell nurse practitioner acting as scribe for signing physi luanne.
[2020-10-22] MEDS: DILTIAZEM ORAL 60 MG TAB PO SCH ×2 (16:49→21:39)
[2020-10-22 17:58] LABS: Glucose,Whole Blood 283 mg/dL (75-99)
[2020-10-22 23:27] LABS: Glucose,Whole Blood 259 mg/dL (75-99)
[2020-10-23 04:24] LABS: Anisocytosis Slight; Basophils # (A) 0.2 k/uL (0-0.2); Basophils % (A) 1 %; Eosinophils # (A) 0.3 k/uL (0-0.7); Eosinophils % (A) 2 %; HCT 23.2 % (34.0-46.0); HGB 7.2 gm/dL (11.4-16.0); Hypochromasia Marked; Lymphocytes # (A) 0.9 k/uL (1.0-4.8); Lymphocytes % (A) 5 %; MCH 28.1 pg (25.0-35.0); MCHC 30.9 g/dL (31.0-37.0); MCV 91.2 fL (80.0-100.0); Monocytes # (A) 0.6 k/uL (0-1.0); Monocytes % (A) 4 %; Neutrophils # (A) 13.8 k/uL (1.3-7.7); Neutrophils % (A) 86 %; Platelet Count 208 k/uL (150-450); Poikilocytosis Slight; RBC 2.54 m/uL (3.80-5.40); RDW 17.9 % (11.5-15.5)
[2020-10-23 04:35] LABS: Albumin 2.4 g/dL (3.5-5.0); Calcium 9.5 mg/dL (8.4-10.2); Potassium 5.1 mmol/L (3.5-5.1); Total Bilirubin 0.4 mg/dL (0.2-1.3)
[2020-10-23 05:03] LABS: ABG Base Excess -0.2 mmol/L; ABG HCO3 26 mmol/L (21-25); ABG Oxygen Saturation 89.5 % (94-97); ABG PCO2 50 mmHg (35-45); ABG PH 7.32 (7.35-7.45); ABG PO2 60 mmHg (83-108); ABG TCO2 27 mmol/L (19-24); Allen Test Performed? Yes
[2020-10-23 06:20] LABS: Glucose,Whole Blood 321 mg/dL (75-99)
[2020-10-23] MEDS: NOREPINEPHRINE 8 MG in SODIUM CHLORIDE 0.9% 250 ML IV SCH (06:57)
[2020-10-23] MEDS: SODIUM CHLORIDE 0.9% 500 ML 500 ML IV SCH (07:00)
[2020-10-23] MEDS ORDERED: INSULIN DETEMIR (LEVEMIR) 100 UNIT/ML SYR SQ SCH ×2 (07:00)
[2020-10-23] MEDS: SEVELAMER 800 MG TAB PO SCH ×3 (07:01→16:55)
[2020-10-23] MEDS: INSULIN ASPART (NovoLOG) 100 UNIT/ML VIAL SQ SCH ×6 (07:02→17:36)
[2020-10-23] MEDS: ALBUTEROL HFA INHALER INHALATION SCH ×4 (07:31→20:06)
[2020-10-23] MEDS: CHLORHEXIDINE GLUCONATE 15 ML CUP MUCOUS MEM SCH ×2 (08:22→21:26)
[2020-10-23] MEDS: ASCORBIC ACID 500 MG TAB PO SCH ×2 (08:22→21:26)
[2020-10-23] MEDS: CHOLECALCIFEROL 25 MCG (1000 IU) TABLET PO SCH (08:23)
[2020-10-23] MEDS: DILTIAZEM ORAL 60 MG TAB PO SCH ×3 (08:23→21:27)
[2020-10-23] MEDS: QUEtiapine 100 MG TAB PO SCH ×2 (08:23→21:27)
[2020-10-23] MEDS: ENOXAPARIN 30 MG/0.3 ML SYRINGE SQ SCH (08:23)
[2020-10-23] MEDS: PANTOPRAZOLE 40 MG/10 ML VIAL IVP SCH (08:23)
--- NOTE | 2020-10-23 08:24 | XR ---
EXAMINATION TYPE: XR chest 1V portable DATE OF EXAM: 10/23/2020 Comparison: 10/22/2020 Clinical History: 35-year-old female SOB Findings: Tracheostomy cannula. Right PICC tip at the upper to mid SVC level. Right-sided double-lumen hemodial ysis catheter at the lower SVC level. Heart remains enlarged. Bilateral airspace disease persists. Po ssible trace left effusion. Impression: Cardiomegaly and persistent bilateral pulmonary edema.
--- NOTE | 2020-10-23 08:49 | P.PN ---
Subjective Patient is seen in follow-up for acute kidney injury. Oliguric. Status post tracheostomy and PEG tube placement this admission. Receiving tube feeding. Currently on 60% FiO2. Receiving daily hemodialysis. No changes overnight. Vital signs: Stable. General: The patient appeared well nourished and normally developed. HEENT: Tracheostomy noted. LUNGS: Breath sounds decreased. HEART: Regular rate and rhythm. Abdomen: Soft, no distention. EXTREMITITES: 1+ edema. Objective - Vital Signs Vital signs: Vital Signs Temp 99.7 F H 10/23/20 08:00 Pulse 130 H 10/23/20 08:00 Resp 36 H 10/23/20 08:00 BP 161/100 10/23/20 08:00 Pulse Ox 89 L 10/23/20 08:00 Intake & Output 10/22/20 10/23/20 10/23/20 18:59 06:59 18:59 Intake Total 1155.324 762 152 Output Total 0 0 Balance 1155.324 762 152 Weight 108 kg Intake: IV 290 30 10 Cefepime 1 gm In Sodium 50 Chloride 0.9% 50 ml @ 12. 5 mls/hr IVPB Q24H [facility] Rx #:[id number] Sodium Chloride 0.9% 500 240 30 10 ml 500 ml @ 10 mls/hr IV .Q24H [facility] Rx#:[id number] Intake, IV Titration 103.324 Amount Dexmedetomidine/0.9% NaCl 32.055 (Pmx) 400 mcg In Empty Bag 1 bag @ Titrate IV . Q0M [facility] Rx#:[id number] Dexmedetomidine/0.9% NaCl 71.269 (Pmx) 400 mcg In Empty Bag 1 bag @ Titrate IV . Q0M [facility] Rx#:[id number] Tube Feeding 672 672 112 Other 90 60 30 Output: Urine 0 0 Other: Voiding Method Incontinent ABP, PAP, CO, CI - Last Documented Arterial Blood Pressure 136/76 - Labs CBC & Chem 7: 10/23/20 04:00 10/23/20 04:00 Labs: Abnormal Lab Results - Last 24 Hours (Table) 10/22/20 10/22/20 10/22/20 Range/Units 11:35 17:57 23:14 WBC (3.8-10.6) k/uL RBC (3.80-5.40) m/uL Hgb (11.4-16.0) gm/dL Hct (34.0-46.0) % MCHC (31.0-37.0) g/dL RDW (11.5-15.5) % Neutrophils # (1.3-7.7) k/uL Lymphocytes # (1.0-4.8) k/uL ABG pH (7.35-7.45) ABG pCO2 (35-45) mmHg ABG pO2 (83-108) mmHg ABG HCO3 (21-25) mmol/L ABG Total CO2 (19-24) mmol/L ABG O2 Saturation (94-97) % BUN (7-17) mg/dL Creatinine (0.52-1.04) mg/dL Glucose (74-99) mg/dL POC Glucose (mg/dL) 308 H 283 H 259 H (75-99) mg/dL Total Protein (6.3-8.2) g/dL Albumin (3.5-5.0) g/dL 10/23/20 10/23/20 10/23/20 Range/Units 04:00 04:00 04:58 WBC 16.0 H (3.8-10.6) k/uL RBC 2.54 L (3.80-5.40) m/uL Hgb 7.2 L (11.4-16.0) gm/dL Hct 23.2 L (34.0-46.0) % MCHC 30.9 L (31.0-37.0) g/dL RDW 17.9 H (11.5-15.5) % Neutrophils # 13.8 H (1.3-7.7) k/uL Lymphocytes # 0.9 L (1.0-4.8) k/uL ABG pH 7.32 L (7.35-7.45) ABG pCO2 50 H (35-45) mmHg ABG pO2 60 L (83-108) mmHg ABG HCO3 26 H (21-25) mmol/L ABG Total CO2 27 H (19-24) mmol/L ABG O2 Saturation 89.5 L (94-97) % BUN 62 H (7-17) mg/dL Creatinine 2.43 H (0.52-1.04) mg/dL Glucose 275 H (74-99) mg/dL POC Glucose (mg/dL) (75-99) mg/dL Total Protein 5.0 L (6.3-8.2) g/dL Albumin 2.4 L (3.5-5.0) g/dL 10/23/20 Range/Units 06:19 WBC (3.8-10.6) k/uL RBC (3.80-5.40) m/uL Hgb (11.4-16.0) gm/dL Hct (34.0-46.0) % MCHC (31.0-37.0) g/dL RDW (11.5-15.5) % Neutrophils # (1.3-7.7) k/uL Lymphocytes # (1.0-4.8) k/uL ABG pH (7.35-7.45) ABG pCO2 (35-45) mmHg ABG pO2 (83-108) mmHg ABG HCO3 (21-25) mmol/L ABG Total CO2 (19-24) mmol/L ABG O2 Saturation (94-97) % BUN (7-17) mg/dL Creatinine (0.52-1.04) mg/dL Glucose (74-99) mg/dL POC Glucose (mg/dL) 321 H (75-99) mg/dL Total Protein (6.3-8.2) g/dL Albumin (3.5-5.0) g/dL Assessment and Plan Plan: Assessment: 1. Acute kidney injury secondary to ATN secondary to COVID-19 and DKA. Baseline creatinine is near 1. Started on hemodialysis on September 14. Has p-cath. Oliguric. No hydronephrosis noted on kidney ultrasound. 2. DKA s/p insulin drip and IV fluids. 3. Acute hypoxic respiratory failure secondary to COVID-19 pneumonia. Status post tracheostomy this admission. 4. Metabolic acidosis secondary to acute kidney injury and DKA s/p bicarb drip. Improved postdialysis. 5. Hyponatremia, hypervolemic. Stable. Blood sugars on higher side. 6. Hyperphosphatemia secondary to acute kidney injury. Maintained on Renvela. 7. Anemia of chronic illness and kidney disease. Maintained on Aranesp. Iron deficiency noted - s/p iv iron. 8. Fluid overload. Improving with daily ultrafiltration. Plan: Hemodialysis today. Maintain tube feeds. Avoid nephrotoxins. Continue to monitor renal function and urine output. Monitor for renal recovery. Wean FiO2. Monitor hemoglobin. Transfuse as needed.
[2020-10-23] MEDS: HYDROmorphone 0.5 MG/0.5 ML SYRINGE IVP PRN ×2 (08:55→17:24)
[2020-10-23 11:26] LABS: Glucose,Whole Blood 327 mg/dL (75-99)
[2020-10-23] MEDS ORDERED: INSULIN DETEMIR (LEVEMIR) 100 UNIT/ML SYR SQ ONE (12:30)
[2020-10-23] MEDS ORDERED: INSULIN ASPART (NovoLOG) 100 UNIT/ML VIAL SQ SCH (12:30)
[2020-10-23] MEDS ORDERED: INSULIN ASPART (NovoLOG) 100 UNIT/ML VIAL SQ ONE (12:30)
--- NOTE | 2020-10-23 13:40 | P.PN ---
Subjective Progress Note Date: 10/23/20 Principal diagnosis: Acute hypoxic respiratory failure secondary to COVID-19 pneumonia and ARDS secondary to COVID-19 pneumonia 10/22/2020, I'm seeing the patient for a follow-up. This morning, she is on a Precedex drip at 0.6 micrograms per kilogram per hour.she is awake. She communicates well. She is barely able to move her fingers and toes pH is unable to raise them against gravity. She has profound weakness. Also, the patient is still on mechanical ventilator. She assist-control mode rate of 32 with a tidal volume of 300 and FiO2 of 60% with a PEEP of 10. Blood gases from today showed a pH of 7.38 with a pCO2 of 48 and pO2 of 65. The chest x-ray from today shows no significant interval change in the patient that she is back to Diffuse bilateral pulmonary infiltrates unchanged from yesterday's evaluation. There is some cardiomegaly. No significant orotracheal secretions. On examination she has some scattered rhonchi. Her previous sputum culture was positive for Acinetobacter and the patient is currently on IV cefepime. Her white cell count has dropped in the morning white cell count today is at 13.3. Nevertheless, overnight, the patient had spikes of temperature with a T-max of 11.3. Repeat cultures will be done accordingly. The patient is currently off steroids. The patient's is slightly tachycardic and we have started on oral Cardizem for rate control. She is in sinus tachycardia. She is also slightly tachypneic. She is uncertain 400 mg by mouth twice a day. No other significant events overnight. He is tolerating her enteral feeding for nutritional support. Her last bout of dialysis was yesterday. Her volume status is improved considerably.She is post prolonged respiratory failure due to COVID-19 related ARDS/pneumonia.the blood sugars are slightly elevated. he is currently off Decadron and increased the Levemir dose for a tighter blood sugar control.I made an adjustment and increase her Levemir insulin up to 30 units once a day along with a slight scale coverage. Patient was reevaluated today on 10/23/2020, patient remains in ICU remains intubated and mechanically ventilated. Patient is on volume control plus rate of 300,And I increased the volume up to 350. She is on rate of 32FiO2 was increased to 65% PEEP remains at 10 EGD this morning showed a pO2 of 60 pCO2 of 50 pH of 7.32. Patient is off all narcotics and paralytics, she is however on Precedex at 0.4 mcg/kg/m. She is still receiving tube feeding via PEG tube. She is on vital AF at 56 mL/hour. Patient did not receive hemodialysis yesterday, however she is scheduled to have hemodialysis today. Remains tachycardic, but hemodynamically stable not requiring pressors at this point. Patient is on Cardizem to control her sinus tachycardia. Chest x-ray continues to show evidence of bilateral interstitial infiltrates secondary to ARDS and s uspect some component of fluid overload secondary to renal failure. No dialysis was done yesterday. Her peak airway pressure is 30 . WBC count is 16 hemoglobin is 7.2 platelets are 2086 metabolic profile is normal except BUN of 62 creatinine 2.43. Blood sugar is 327 remains on cefepime at 1 g every 24 hours. Patient is also on Lovenox at 30 mg subcu daily. She is also on Seroquel at 100 twice a day. Protonix 40 mg IV push daily. Objective - Vital Signs Vital signs: Vital Signs Temp 99.7 F H 10/23/20 08:00 Pulse 123 H 10/23/20 13:00 Resp 33 H 10/23/20 13:00 BP 136/90 10/23/20 13:00 Pulse Ox 96 10/23/20 13:00 Intake & Output 10/22/20 10/23/20 10/23/20 18:59 06:59 18:59 Intake Total 1155.324 762 669.935 Output Total 0 0 0 Balance 1155.324 762 669.935 Weight 108 kg 108 kg Intake: IV 290 30 60 Cefepime 1 gm In Sodium 50 Chloride 0.9% 50 ml @ 12. 5 mls/hr IVPB Q24H [facility] Rx #:[id number] Sodium Chloride 0.9% 500 240 30 60 ml 500 ml @ 10 mls/hr IV .Q24H [facility] Rx#:[id number] Intake, IV Titration 103.324 37.935 Amount Dexmedetomidine/0.9% NaCl 32.055 (Pmx) 400 mcg In Empty Bag 1 bag @ Titrate IV . Q0M [facility] Rx#:[id number] Dexmedetomidine/0.9% NaCl 71.269 (Pmx) 400 mcg In Empty Bag 1 bag @ Titrate IV . Q0M [facility] Rx#:[id number] Dexmedetomidine/0.9% NaCl 37.935 (Pmx) 400 mcg In Empty Bag 1 bag @ Titrate IV . Q0M [facility] Rx#:[id number] Tube Feeding [phone] Other 90 60 180 Output: Urine 0 0 0 Other: Voiding Method Incontinent ABP, PAP, CO, CI - Last Documented Arterial Blood Pressure 136/76 - Exam GENERAL EXAM: Revealed a 35-year-old female, obese, on mechanical ventilation, on Precedex, awake, follows very simple instructions but she is extremely weak/profoundly weak. HEAD: Normocephalic/atraumatic. Tracheostomy is intact. EENT: PERRLA, EOMI, nonicteric, no neck masses, no JVD, CHEST: No chest wall deformity. Symmetrical expansion. LUNGS: Bronchial breath sounds bilaterally posteriorly. Clear anteriorly. CVS: Distant S1 and S2, no S3 gallop, no murmur. ABDOMEN: Obese soft nontender no megaly no rebound no guarding. PEG tube is intact. EXTREMITIES: No clubbing, 1+ bipedal edema, no cyanosis, 2+ pulses and upper and lower extremities. Psychiatric: Arousable, follows simple instructions. But profoundly weak. SKIN: No rashes CENTRAL NERVOUS SYSTEM: Follows simple instructions but profoundly weak. - Labs CBC & Chem 7: 10/23/20 04:00 10/23/20 04:00 Labs: Abnormal Lab Results - Last 24 Hours (Table) 10/22/20 10/22/20 10/23/20 Range/Units 17:57 23:14 04:00 WBC 16.0 H (3.8-10.6) k/uL RBC 2.54 L (3.80-5.40) m/uL Hgb 7.2 L (11.4-16.0) gm/dL Hct 23.2 L (34.0-46.0) % MCHC 30.9 L (31.0-37.0) g/dL RDW 17.9 H (11.5-15.5) % Neutrophils # 13.8 H (1.3-7.7) k/uL Lymphocytes # 0.9 L (1.0-4.8) k/uL ABG pH (7.35-7.45) ABG pCO2 (35-45) mmHg ABG pO2 (83-108) mmHg ABG HCO3 (21-25) mmol/L ABG Total CO2 (19-24) mmol/L ABG O2 Saturation (94-97) % BUN (7-17) mg/dL Creatinine (0.52-1.04) mg/dL Glucose (74-99) mg/dL POC Glucose (mg/dL) 283 H 259 H (75-99) mg/dL Total Protein (6.3-8.2) g/dL Albumin (3.5-5.0) g/dL 10/23/20 10/23/20 10/23/20 Range/Units 04:00 04:58 06:19 WBC (3.8-10.6) k/uL RBC (3.80-5.40) m/uL Hgb (11.4-16.0) gm/dL Hct (34.0-46.0) % MCHC (31.0-37.0) g/dL RDW (11.5-15.5) % Neutrophils # (1.3-7.7) k/uL Lymphocytes # (1.0-4.8) k/uL ABG pH 7.32 L (7.35-7.45) ABG pCO2 50 H (35-45) mmHg ABG pO2 60 L (83-108) mmHg ABG HCO3 26 H (21-25) mmol/L ABG Total CO2 27 H (19-24) mmol/L ABG O2 Saturation 89.5 L (94-97) % BUN 62 H (7-17) mg/dL Creatinine 2.43 H (0.52-1.04) mg/dL Glucose 275 H (74-99) mg/dL POC Glucose (mg/dL) 321 H (75-99) mg/dL Total Protein 5.0 L (6.3-8.2) g/dL Albumin 2.4 L (3.5-5.0) g/dL 10/23/20 Range/Units 11:24 WBC (3.8-10.6) k/uL RBC (3.80-5.40) m/uL Hgb (11.4-16.0) gm/dL Hct (34.0-46.0) % MCHC (31.0-37.0) g/dL RDW (11.5-15.5) % Neutrophils # (1.3-7.7) k/uL Lymphocytes # (1.0-4.8) k/uL ABG pH (7.35-7.45) ABG pCO2 (35-45) mmHg ABG pO2 (83-108) mmHg ABG HCO3 (21-25) mmol/L ABG Total CO2 (19-24) mmol/L ABG O2 Saturation (94-97) % BUN (7-17) mg/dL Creatinine (0.52-1.04) mg/dL Glucose (74-99) mg/dL POC Glucose (mg/dL) 327 H (75-99) mg/dL Total Protein (6.3-8.2) g/dL Albumin (3.5-5.0) g/dL Microbiology - Last 24 Hours (Table) 10/22/20 20:55 Gram Stain - Preliminary Sputum Sputum Culture - Preliminary 10/22/20 09:36 Blood Culture - Preliminary Blood No Growth after 24 hours Assessment and Plan Assessment: Impression: Acute hypoxic respiratory failure secondary to COVID-19 pneumonia and ARDS secondary to COVID-19 pneumonia, patient was transferred to the ICU on 09/11, intubated on 09/11, received REM on 09/11, received T OCI on 09/11, tracheostomy and PEG tube placement on 09/18 remains on mechanical ventilation with volume control plus mode , she is presently on the 65 percent FiO2 and PEEP of 10 Assist control rate of 32, patient is on volume control plus with tidal volume of 350 Acute kidney injury with complete shutdown of urine output/anuria, requiring hemodialysis. Remains on hemodialysis Acute diabetic ketoacidosis and COVID-19 pneumonia on her initial presentation. Sepsis secondary to COVID-19 pneumonia Type 2 diabetes poorly controlled. Hemoglobin A1c of 13.6. Elevated inflammatory markers secondary to acute COVID-19 pneumonia not much of a change in the last few days in the inflammatory markers. History of hypertension. Generalized anxiety disorder. Morbid obesity BMI of 54.2. Status post tracheostomy and PEG tube placement on 09/18. Corneal injury, punctate keratitis left eye. Acinetobacter in sputum, patient remains on cefepime. Critical illness polyneuropathy and myopathy Episodic fever, presently under control. Recommendation: Continue ventilatory support. Continue physical therapy. Continue insulin and adjust dose accordingly. Patient is off Decadron. Continue Precedex. And weaned gradually. Continue Seroquel. Continue cefepime for Acinetobacter infection. Continue dialysis as per nephrology on the case. Today I increased her FiO2 to 65% because her O2 saturations was marginal. And adjusted her tidal volume up to 350. Continue Lovenox 30 mg subcu daily Continue nutritional support. Continue GI and DVT prophylaxis. Prognosis remains guarded and the patient is critical. Critical care time is over 30 minutes Time with Patient: Greater than 30
--- NOTE | 2020-10-23 13:51 | P.PN ---
Subjective Progress Note Date: 10/23/20 CHIEF COMPLAINT: COVID-19 pneumonia HISTORY OF PRESENT ILLNESS: Patient is in the ICU for COVID-19 pneumonia and respiratory failure. She is status post tracheostomy and PEG tube placement with Dr. Hollis. Patient is tolerating tube feedings. Patient's to feedings are at 56 mL per hour. Patient remains on mechanical ventilation. She is off the sedation. She has been getting daily hemodialysis. There were concerns yesterday about a possible tracheostomy week through the night. It appears to have resolved this morning. Afebrile. Tachycardic. WBC 16 Per nursing staff patient is responding to simple commands Patient seen and examined with Dr. hollis PHYSICAL EXAM: VITAL SIGNS: Reviewed. GENERAL: Well-developed in no acute distress. HEENT: No sclera icterus. Extraocular movements grossly intact. Moist buccal mucosa. Head is atraumatic, normocephalic. No drainage from a tracheostomy at this time ABDOMEN: Soft. Nondistended. Nontender. PEG tube site clean dry and intact NEUROLOGIC: Awake and opens eyes ASSESSMENT: 1. Acute hypoxic respiratory failure with prolonged mechanical ventilation due to COVID-19 pneumonia status post tracheostomy placement 2. Severe protein calorie malnutrition status post PEG tube placement PLAN: -Continue tube feedings -Continue supportive care -Continue ICU management -Continue trach care and monitor for tracheostomy week [employer] note has been reviewed by physician. Signing provider agrees with the documented findings, assessment, and plan of care. Objective - Vital Signs Vital signs: Vital Signs Temp 99.7 F H 10/23/20 08:00 Pulse 123 H 10/23/20 13:00 Resp 33 H 10/23/20 13:00 BP 136/90 10/23/20 13:00 Pulse Ox 96 10/23/20 13:00 Intake & Output 10/22/20 10/23/20 10/23/20 18:59 06:59 18:59 Intake Total 1155.324 762 669.935 Output Total 0 0 0 Balance 1155.324 762 669.935 Weight 108 kg 108 kg Intake: IV 290 30 60 Cefepime 1 gm In Sodium 50 Chloride 0.9% 50 ml @ 12. 5 mls/hr IVPB Q24H [facility] Rx #:[id number] Sodium Chloride 0.9% 500 240 30 60 ml 500 ml @ 10 mls/hr IV .Q24H [facility] Rx#:[id number] Intake, IV Titration 103.324 37.935 Amount Dexmedetomidine/0.9% NaCl 32.055 (Pmx) 400 mcg In Empty Bag 1 bag @ Titrate IV . Q0M [facility] Rx#:[id number] Dexmedetomidine/0.9% NaCl 71.269 (Pmx) 400 mcg In Empty Bag 1 bag @ Titrate IV . Q0M [facility] Rx#:[id number] Dexmedetomidine/0.9% NaCl 37.935 (Pmx) 400 mcg In Empty Bag 1 bag @ Titrate IV . Q0M [facility] Rx#:[id number] Tube Feeding [phone] Other 90 60 180 Output: Urine 0 0 0 Other: Voiding Method Incontinent ABP, PAP, CO, CI - Last Documented Arterial Blood Pressure 136/76 - Labs CBC & Chem 7: 10/23/20 04:00 10/23/20 04:00 Labs: Abnormal Lab Results - Last 24 Hours (Table) 10/22/20 10/22/20 10/23/20 Range/Units 17:57 23:14 04:00 WBC 16.0 H (3.8-10.6) k/uL RBC 2.54 L (3.80-5.40) m/uL Hgb 7.2 L (11.4-16.0) gm/dL Hct 23.2 L (34.0-46.0) % MCHC 30.9 L (31.0-37.0) g/dL RDW 17.9 H (11.5-15.5) % Neutrophils # 13.8 H (1.3-7.7) k/uL Lymphocytes # 0.9 L (1.0-4.8) k/uL ABG pH (7.35-7.45) ABG pCO2 (35-45) mmHg ABG pO2 (83-108) mmHg ABG HCO3 (21-25) mmol/L ABG Total CO2 (19-24) mmol/L ABG O2 Saturation (94-97) % BUN (7-17) mg/dL Creatinine (0.52-1.04) mg/dL Glucose (74-99) mg/dL POC Glucose (mg/dL) 283 H 259 H (75-99) mg/dL Total Protein (6.3-8.2) g/dL Albumin (3.5-5.0) g/dL 10/23/20 10/23/20 10/23/20 Range/Units 04:00 04:58 06:19 WBC (3.8-10.6) k/uL RBC (3.80-5.40) m/uL Hgb (11.4-16.0) gm/dL Hct (34.0-46.0) % MCHC (31.0-37.0) g/dL RDW (11.5-15.5) % Neutrophils # (1.3-7.7) k/uL Lymphocytes # (1.0-4.8) k/uL ABG pH 7.32 L (7.35-7.45) ABG pCO2 50 H (35-45) mmHg ABG pO2 60 L (83-108) mmHg ABG HCO3 26 H (21-25) mmol/L ABG Total CO2 27 H (19-24) mmol/L ABG O2 Saturation 89.5 L (94-97) % BUN 62 H (7-17) mg/dL Creatinine 2.43 H (0.52-1.04) mg/dL Glucose 275 H (74-99) mg/dL POC Glucose (mg/dL) 321 H (75-99) mg/dL Total Protein 5.0 L (6.3-8.2) g/dL Albumin 2.4 L (3.5-5.0) g/dL 10/23/20 Range/Units 11:24 WBC (3.8-10.6) k/uL RBC (3.80-5.40) m/uL Hgb (11.4-16.0) gm/dL Hct (34.0-46.0) % MCHC (31.0-37.0) g/dL RDW (11.5-15.5) % Neutrophils # (1.3-7.7) k/uL Lymphocytes # (1.0-4.8) k/uL ABG pH (7.35-7.45) ABG pCO2 (35-45) mmHg ABG pO2 (83-108) mmHg ABG HCO3 (21-25) mmol/L ABG Total CO2 (19-24) mmol/L ABG O2 Saturation (94-97) % BUN (7-17) mg/dL Creatinine (0.52-1.04) mg/dL Glucose (74-99) mg/dL POC Glucose (mg/dL) 327 H (75-99) mg/dL Total Protein (6.3-8.2) g/dL Albumin (3.5-5.0) g/dL Microbiology - Last 24 Hours (Table) 10/22/20 20:55 Gram Stain - Preliminary Sputum Sputum Culture - Preliminary 10/22/20 09:36 Blood Culture - Preliminary Blood No Growth after 24 hours
[2020-10-23] MEDS: CEFEPIME 1 GM in SODIUM CHLORIDE 0.9% 50 ML IVPB SCH (14:59)
[2020-10-23] MEDS ORDERED: DEXMEDETOMIDINE/0.9% NACL(PMX) 400 MCG in EMPTY BAG 1 BAG IV SCH (15:30)
[2020-10-23 17:28] LABS: Glucose,Whole Blood 278 mg/dL (75-99)
[2020-10-24 00:02] LABS: Glucose,Whole Blood 242 mg/dL (75-99)
[2020-10-24] MEDS: INSULIN ASPART (NovoLOG) 100 UNIT/ML VIAL SQ SCH ×9 (00:03→23:41)
[2020-10-24] MEDS: HYDROmorphone 0.5 MG/0.5 ML SYRINGE IVP PRN ×2 (02:45→17:04)
[2020-10-24 03:36] LABS: Anisocytosis Slight; Basophils # (A) 0.1 k/uL (0-0.2); Basophils % (A) 1 %; Eosinophils # (A) 0.2 k/uL (0-0.7); Eosinophils % (A) 2 %; HGB 7.6 gm/dL (11.4-16.0); Hypochromasia Marked; Lymphocytes # (A) 0.9 k/uL (1.0-4.8); Lymphocytes % (A) 9 %; MCH 28.3 pg (25.0-35.0); MCHC 30.4 g/dL (31.0-37.0); MCV 93.2 fL (80.0-100.0); Mean Platelet Volume 9.9; Monocytes # (A) 0.6 k/uL (0-1.0); Monocytes % (A) 5 %; Neutrophils % (A) 82 %; Platelet Count 185 k/uL (150-450); Poikilocytosis Slight; RBC 2.69 m/uL (3.80-5.40); RDW 17.9 % (11.5-15.5)
[2020-10-24 03:48] LABS: Calcium 9.1 mg/dL (8.4-10.2); Magnesium 2.2 mg/dL (1.6-2.3); Phosphorus 2.9 mg/dL (2.5-4.5)
[2020-10-24 05:54] LABS: Glucose,Whole Blood 260 mg/dL (75-99)
[2020-10-24 06:08] LABS: ABG Base Excess 2.1 mmol/L; ABG HCO3 28 mmol/L (21-25); ABG Oxygen Saturation 91.6 % (94-97); ABG PCO2 54 mmHg (35-45); ABG PH 7.33 (7.35-7.45); ABG PO2 66 mmHg (83-108); ABG TCO2 30 mmol/L (19-24); Allen Test Performed? Yes
[2020-10-24] MEDS: NOREPINEPHRINE 8 MG in SODIUM CHLORIDE 0.9% 250 ML IV SCH ×2 (06:18→23:07)
[2020-10-24] MEDS: SEVELAMER 800 MG TAB PO SCH ×3 (06:36→16:47)
[2020-10-24] MEDS ORDERED: INSULIN DETEMIR (LEVEMIR) 100 UNIT/ML SYR SQ SCH (07:00)
[2020-10-24] MEDS: SODIUM CHLORIDE 0.9% 500 ML 500 ML IV SCH (07:00)
--- NOTE | 2020-10-24 07:28 | P.PN ---
Subjective Progress Note Date: 10/23/20 HISTORY OF PRESENT ILLNESS 35-year-old female patient of Dr. Arroyo with past medical history of type 2 diabetes comes in with acute shortness of breath associated with high light s ugars. Patient on admission was found to have a fever of 101.5 pulse rate 125 respiratory rate 20. Blood pressure 132/106. On chest x-ray obtained in the ER suggestive of bilateral infiltrates concerning for call with pneumonia. COVID PCR was positive. On admissions patient had an ABG with a pH of 7.14 pCO2 of 20, pO2 of 59, bicarb of 7. Patient's blood sugar on admission was 424 on assessment today patient's blood work patient had a sodium 135 potassium 5.4 chloride 123 bicarb less than 5 and creatinine 0.73. D-dimer was elevated on admission patient 9 28 patient given 1 L of IV fluids followed by normal saline running at 200 mL/h. Patient was positive for acetone on admission. She will anion gap closed and was switched to D5NS. Insulin drip was continued during the night and was switched to patient's home medication this morning. One dose of remdesiver was ordered. Apparently around noon, A- team was called on the patient secondary to hypoxia patient's oxygen saturation dropped to the 70s and 80s on 100% nonrebreather. Patient was switched to BiPAP on 18/12 and is doing better o FiO2 of 80%. ABG was obtained and ph was 7. 14 pCO2 of 28 bicarb of 7 pO2 of 17. Patient noted to have uncompensated metabolic acidosis with compensated respiratory alkalosis. Stat dose of 1 amp bicarb was given and followed by sodium bicarbonate drip. Insulin drip restarted. Patient's initiated on dexamethasone 6 mg IV twice a day. Potassium phosphate ordered as phosphorus is low. Patient's repeat blood gases suggest a pH of 7.25, CO2 32 pO2 of 72 bicarb 14. I will not normal saline at 100 mL/h as patient's anion gap has increased. Patient given 1 dose of 2 mg of morphine with improvement in respiratory rate. One dose of Ativan 0.5 mg was given. Xanax 0.25 twice a day along with Ativan 0.5 IV every 6 hours ordered for the patient. Vitals were evaluated patient pulse 129 [id number]. She was moved to the ICU. Precedex drip was initiated. Lopressor was initiated at 25 twice a day. Metoprolol tartrate 5 mg IV every 6 hours. Systolic blood pressure more than 160. Started chest x-ray was obtained and suggest stable bilateral consolidation suggestive of COVID-19 pneumonia. 09/12 patient is seen in the ICU is currently mechanically ventilated and sedated on vent settings of respiratory rate 36, tidal volume 375 FiO2 80% PEEP of 18.. Vital signs reviewed patient had a temp of 100.4 pulse 150 respiratory rate 36 oxygen saturation 95% on 80% on fio2 .'s labs are reviewed which patient had a d-dimer 1.84 that is increased to 14.3. Arterial Blood gas suggest ph 7.35, CO2 40, po2 62, . Her BMP suggest a sodium 135 potassium 3.7 chloride 112 bicarb 21 creatinine 1.57 for calcitonin is 3.5 CRP is increased from 8.78.2 LDH is increased to 2614. Patient remains on Pneumovax, propofol drip. Lovenox increased to 50 subcu twice a day. Patient received 2 L of IV fluids. Continue IV fluids at 100 mL/h. Bicarb drip discontinued patient initiated on Zosyn 3.375 every 8 hours. Continue insulin drip at 4 units per hour. Patient is currently in prone positioning 09/13: Patient evaluated in the ICU remains on Ventilation continues to be sedated, in prone position. Vent settings are respiratory rate 36, tidal vital 375, FiO2 70% PEEP of 18. ABG shows pO2 of 82, PCO2 of 39, pH is 7.19. Latest labs show WBC 11.1, hemoglobin 13.2, d-dimer still pending, but yesterday was up to 14.3. Creatinine up to 3.4, BUN 24 sodium 137, potassium 4.0. Patient's urine output has been low, nephrology on consult. Bicarb drip increased to 100 miles an hour, receiving another liter of normal saline, she did have a ultrasound that showed unremarkable bilateral kidneys. Repeat chest x-ray showed bilateral lung infiltrates that are stable. Anion gap has closed, will start Lantus 10 units at at bedtime Novolog every 6 hours. 09/14: Patient is seen in the ICU, still currently mechanically ventilated and sedated. She continues in the prone position. Her oxygen quickly drops if she is not in prone. Patient's kidney function has worsened. Laboratory values show creatinine of 4.87, BUN 33, LDH 2191, C-reactive protein 2.7. ABG shows pH 7.32, pO2 of 60, pCO2 43. Patient is making almost no urine overnight. Nephrology is following patient continues on cefepime for urinary tract infection, culture is still pending. Vascular has been consulted for placement of temporary hemodialysis catheter for plans for dialysis. 09/15: Patient evaluated in the ICU, continues to be mechanically ventilated and sedated on assist control ventilation rate of 36, tidal volume 375, FiO2 100% and PEEP of 18. ABG today shows pO2 58, pCO2 of 45, and pH 7.35. She continues on tube feedings. Yesterday patient underwent ultrasound-guided right internal jugular non-tunneled hemodialysis catheter placement. Patient underwent hemodialysis treatment last night and plans have another hemodialysis treatment today. She continues to make almost no urine. She continues on cefepime for antibiotic coverage, and continues on Decadron and Lovenox. 09/16: Patient seen on follow-up remains in the ICU mechanically ventilated and sedated. She continues on assist control rate of 36, tidal volume 375, FiO2 100% and PEEP of 20. PEEP had to be increased due to patient had to be in supine position for dialysis, will go back to prone position once dialysis is complete. ABG shows pH 7.32, pCO2 49, PaO2 61. Laboratory values showed WBC 11.2, hemoglobin 11, sodium 134, creatinine 4.44, BUN 38. Urine culture shows no growth, blood cultures show no growth to date. Repeat chest x-ray shows bilateral pleural effusions, correlate for ARDS, pulmonary edema, diffuse pneumonia, findings are stable from last exam. Patient does not require any pressors, blood pressure 133/57, heart rate 78. 5/16: Patient was evaluated in the ICU today for follow-up. She continues to be intubated and on mechanical ventilation. Current vent settings are tidal volume 375, FiO2 100% and PEEP of 20. ABG shows pH 7.37, pCO2 40, pO2 102. She continues with intermittent prone positioning. Patient continues to have almost no urine output, maintained on dialysis. Patient received dialysis yesterday without complication. Laboratory values revealed WBC 10.3, hemoglobin 10.4, sodium 132, potassium 3.1, BUN 33, creatinine 4.29, LDH 1913, C-reactive protein 1.3. Urine and sputum cultures are negative, blood cultures show no growth to date. Consult placed to dietary to start TPN[ ] 09/18: She remains in the intensive care unit intubated and on mechanical ventilation with tidal volume 375, FiO2 60 and PEEP of 20. Patient is being prone to daily at approximately 16 hours per day. Pulmonary medicine has added in Dr. Zhang to do PEG tube and trach today. Patient is not on vasopressors. Repeat blood work reveals WBC 12.6, hemoglobin 9.8, platelet count 212. Sodium 133, potassium 3.2, chloride 102, CO2 21, BUN 35 and creatinine 4.12. Blood sugar 126. Patient underwent hemodialysis yesterday with removal of 2 L and is scheduled again today with goal of 2-3 L and is scheduled again tomorrow. 09/19: She is scheduled for hemodialysis today and is off fentanyl temporarily. Patient is status post trach and PEG tube yesterday. And she remains on mechanical ventilation. Pulse ox 93-95%. She has been afebrile, heart rate 64, respiratory rate 36, blood pressure 115/50. Fentanyl is off to improve blood pressure for hemodialysis which is scheduled for today. Contacted vascular surgery about permanent hemodialysis catheter. Repeat blood work reveals WBC 14.3, hemoglobin 9.6, platelet count 200. D-dimer 6.48. LDH 1686. C-reactive protein 1.1. BUN 34 creatinine 3.81. Sodium 130, potassium 3.5, chloride 101, CO2 18. Blood sugars running between 101 198. Plan is to wean off Pneumovax today. Patient remains on insulin drip. Repeat chest x-ray reveals bilateral multifocal confluent opacities consistent with COVID-19. Some improved aeratio n periphery of the left lung and worsening opacities throughout the right lung. 09/20: She remains in the intensive care unit on mechanical ventilation. She has been afebrile, heart rate 65, respiratory rate 37, blood pressure 121/70, pulse ox 91-99%. Repeat blood work reveals WBC 14.5, hemoglobin 9.1, platelet count 216. D-dimer 6.13. Sodium 133, potassium 3.1, chloride 102, CO2 18, BUN 35 and creatinine 4.27. Blood sugars running between 128 and 143. LDH 1717. C- reactive protein 1.7. Patient remains on insulin drip which will be transitioned to NovoLog scale every 6 hours. Patient is scheduled for permanent hemodialysis catheter placement today with vascular surgery. Repeat chest x-ray reveals stable diffuse bilateral interstitial and airspace disease. Possible small right effusion. His work is following for [facility]. Do not anticipate discharge until next week. 09/21: Patient is undergoing hemodialysis. She remains on mechanical ventilation with tidal volume 375, FiO2 down to 45 and PEEP was decreased to 15. Patient is continued on propofol, fentanyl drips. She is on tube feedings at goal. Patient was taken off insulin drip yesterday and on scale only but blood sugars are running in the 200s, Levemir scheduled at bedtime will be added. Other blood work reveals WBC 13.3, hemoglobin 8.7, platelet count 192. Sodium 137, potassium 3.6, chloride 107, CO2 18, BUN 34 and creatinine 4.21. Repeat chest x-ray is stable. 09/22: She remains in the intensive care on mechanical ventilation with tidal volume 375, FiO2 of 50 and PEEP of 10. Pulse ox is running 96%. She is afebrile, heart rate in the 50s, respiratory rate 36, blood pressure 100/64. Repeat blood work reveals WBC 16.5, hemoglobin 8.9, platelet count 213. Sodium 134, potassium 3.7, chloride 103, CO2 21, BUN 34 and creatinine 3.89. Blood sugars running in the 200s to 324. Levemir increased to 16 units at bedtime and continue NovoLog scale every 6 hours. Patient is on tube feedings at goal. She has a Haley catheter in with a scant amount of dark/brown urine. Fecal management system is in place. Repeat chest x-ray reveals diffuse bilateral airspace infiltrates persist unchanged. Patient is scheduled for hemodialysis tomorrow morning on Friday. 09/23: Patient remains on mechanical ventilation with tidal volume 3.75, FiO2 50 and PEEP of 10. hall monitor sinus rhythm. She has no urine output. Fecal management system is in place. She is undergoing dialysis at this time with plan for removal of 2-1/2 L. She has been afebrile, heart rate in the 50s, respiratory rate 36, blood pressure 108/76 and pulse ox 89%. WBC 13.6, hemoglobin 9.1, platelet count 194. Sodium 136, potassium 3.0 and was replaced, chloride 106, CO2 21, BUN 49 creatinine 5.31. Blood sugars are running between 182 and this morning 194. Patient was still in the 200s and 300s. Levemir last evening was increased to 16 units. Patient remains on propofol and fentanyl drips. Lovenox was increased to 60 mg twice daily. 09/24: PEEP was increased today to 20, tidal volume is at 375 and FiO2 of 50%. Patient has been afebrile. She has been started on levo fed. Repeat chest x- ray reveals bilateral multifocal confluent opacities consistent with Covid 19 or ARDS redemonstrated. Nephrology will plan dialysis for tomorrow for 3 L. Patient remains on propofol fentanyl and Nimbex. WBC 12.5, hemoglobin 9.8, platelet count 161. D-dimer 13.3. Sodium 132, potassium 3.4, chloride 102, CO2 20, BUN 48 and creatinine 4.67. Blood sugars extremely elevated to 96-409. LDH 2217. 09/25: Patient remains in the intensive care unit on mechanical ventilation with tidal volume 375, FiO2 50 and PEEP of 20. Patient is afebrile, heart rate 61, respiratory rate 36, blood pressure 102/56, pulse ox 97%. Repeat blood work reveals WBC 9.3, hemoglobin 8.5 and platelet count 171. Sodium 130, potassium 3.7, chloride 100, CO2 20, BUN 61 creatinine 5.65. Blood sugars have been elev ated up to 455. Levemir increased to 20 units twice daily, NovoLog 5 units every 6 hours and continue NovoLog scale. Patient is scheduled for hemodialysis today. Repeat chest x-ray reveals bilateral multifocal and confluent opacities. Decadron and Lovenox dosing change by pulmonary. Patient is off norepinephrine. 09/26: Patient remains in the intensive care unit on mechanical ventilation with tidal volume 375, FiO2 50 and PEEP of 15. She has been afebrile, heart rate 91, blood pressure 114/68, pulse ox 99%. hall monitor sinus rhythm. 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 Sodium 134, potassium 3.6, chloride 102, CO2 22, BUN 41 creatinine 4.21. Patient has improved blood sugars this morning running 150s and 160s. Diabetic medications were adjusted yesterday. Patient is awake and alert and interacting. Yesterday, patient had PICC line inserted by interventional radiology. Repeat chest x-ray reveals diffuse airspace infiltrates in both lung ann appear to progress slightly in the interval. 09/27: Patient remains in intensive care unit on mechanical ventilation with improvement of settings with tidal volume 375, FiO2 decreased to 40 and PEEP decreased to 10. Patient is on hemodialysis every other day and plan to remove 3 L today. Patient is more awake and alert. She is slow to respond but is able to follow simple commands. Blood sugars are running between 84 and 123. Repeat blood work reveals WBC 7.1, hemoglobin 8.1, platelets 152. Sodium 135, potassium 3.6, chloride 103, CO2 21, BUN 53 and creatinine 5.88. Repeat chest x-ray revealed cardiomegaly and pulmonary edema. Patient is on tube feedings:. Patient is not require vasopressors and is off sedation. Fecal management system remains in place for brown liquid stool. C. difficile was negative. 09/28: Patient remains on mechanical ventilation with tidal volume 375, FiO2 increased to 80 and PEEP increased to 18. Patient had a rough night was very anxious, no pain. Xanax 0.25 mg 3 times daily was added. There is concern for pulmonary embolism for which patient was started on heparin drip, she is unable to undergo CAT scan. Venous Doppler bilateral lower extremities was nondiagnostic due to extensive edema in obese patient but minimal imaging of the popliteal veins does show flow. Repeat echocardiogram has been ordered. Cefepime has also been ordered at 1 g IV piggyback every 24 hours as well as vancomycin, pharmacy dosing. Patient is back on fentanyl drip, propofol drip and norepinephrine. Blood sugars are elevated and insulin Levemir will be i ncreased to 25 mg twice daily. Ferrlecit infusion has been ordered by nephrology for 4 days. Patient is undergoing hemodialysis today.temperature max 100.2, heart rate 134, respiratory rate 34, blood pressure 120/65, pulse ox 94%. hall monitor is sinus tachycardia. Repeat blood work reveals WBC 16.9, hemoglobin 9.7, platelet count 216. D-dimer 8.81. Sodium 134, potassium 3.8, chloride 99, CO2 25, BUN 43 and creatinine 5.36. Blood sugars in the 200s. AST 40. 09/29 Patient had declined more last 48 hours require more sedation, patient is doing hemodialysis, respiratory failure is quite bit worse this time. Patient was inquired the pain is well back on fentanyl drip. Her vent set up with PEEP is limited but higher. No new finding on culture and her chest x-ray continues shows diffuse infiltrate persistent although there is a moderate interval improvement. 09/30 patient's was seen and evaluated. PEEP was reduced to 11 as patient is maintaining good saturation at the current vent settings. 10/01 patient was seen at bedside. She is currently on assist control rate of 28 white tidal volume 350 FiO2 50% and PEEP of 10 which has been reduced by pulmonary as patient name cleaning her oxygen saturation. Arm blood gas was obtained with a pH of 7.35 pCO2 37 pO2 of 63. She remains hemodynamically stable with no need for pressors. Labs were reviewed patient's BUN is 29 crea tinine 3.93 glucose 122 albumin 2.2 sodium 131 chloride 19 hemoglobin is downtrending with a Hb of 7.3 no leukocytosis 7.1. Patient's urine output is minimal at this time. Her rate has increased to 129 and is currently on positive fluid balance even with dialysis. Last dialysis was done yesterday. Continue enteral feeding currently at goal. Antibiotic has been discontinued and continues to remain on DEXA methicillin 4 mg IV daily. 10/02 patient continues to be on trach support with mechanical ventilation. Patient was evaluated by box shook patcher and was switched to VC control as patient was noted to be double stacking on and off throughout the night. Respiratory rate continue to 28 tidal volume increased to 400 with a PEEP for Dr. Downey. Patient is maintaining oxygen saturation 91% on the current setting. According to the nurse bedside patient saturation drops significantly or she is moved or her sedation is dropped. Patient is currently on propofol drip, fentanyl drip. She did underwent dialysis today and was able to maintain her low pressure without the need of pressors. Labs reviewed today suggest a WBC of 6.7 hemoglobin of 7.0 and d-dimer 3.9 bicarb 17 BUN 38 creatinine 4.8. LDH is 964. Sodium 1:30 likely secondary to volume overload. Urine sodium and urine osmolality ordered. Patient's glucose this morning is 146. Continue to remain on enteral feeding. Urine output is reduced. Fall catheter will be placed today. Continue to remain on dialysis. 10/03: Patient remains on mechanical ventilation and is back on propofol and fentanyl drips. Patient is currently on VC control with tidal volume 400, FiO2 55 and PEEP of 12. Patient still is not making any urine and is dialysis dependent with next treatment planned for tomorrow with removal of 3-3-1/2 L. PEG tube feedings are at goal. Fecal management system remains in place. At the time of evaluation, patient is off levophed. Repeat chest x-ray reveals stable diffuse bilateral airspace disease correlate for ARDS, pulmonary edema or diffuse pneumonia. Temperature max last evening was 101. Temperature currently 99, heart rate 106, respiratory rate 32, blood pressure 101/50, pulse ox 86%. Repeat blood work reveals WBC 6, hemoglobin 7.4, platelet count 160. D-dimer 4.05. Sodium 133, potassium 3.5, chloride 100, CO2 23, BUN 31 creatinine 3.8. Blood sugars are running between 100 and 170. Ferritin 1514. Liver function test normal. LDH 1016, C-reactive protein 13.6. Prognosis remains guarded. 10/04: Patient remains intubated on mechanical ventilation with tidal volume 400, FiO2 65, PEEP of 14. Patient continues to run fevers and repeat blood culture and urine and urine culture ordered for today. Haley catheter has been removed this patient has no significant urine output at about 20 mL per shift. BladderScan is monitored for greater than 300 and the patient is straight cathed. Hemoglobin is 6.8 and she has been ordered 41 unit of packed RBCs today. She is currently on propofol and fentanyl drips. She is scheduled for hemodialysis today. WBC 4.5, hemoglobin 6.8, platelet count 151. D-dimer 3.28. Sodium 132, potassium 4.1, chloride 100, CO2 22, BUN 37 creatinine 4.74. Blood sugars running between 97 and 110. Ferritin 1801. LDH 859. C-reactive protein 14.4. Chest x-ray reveals correlate for pneumonia, edema, ARDS. Prognosis remains guarded. 10/05: Patient remains in intensive care unit currently on mechanical ventilation with tidal volume 400, FiO2 was increased to 100 and PEEP is at 14. She continues to run fevers which have worsened with temperature max 103.1. She has been tachycardic in the 130s, blood pressure is marginal but not on vasopressors. Pulse ox currently 92%. Repeat blood work reveals WBC 5.5, hemoglobin 7.6, platelet count 190. D-dimer 2.7, ferritin 1770, LDH 932, C- reactive protein 21.4. Blood sugars are running between 100 1669. Electrolytes are normal. BUN 27 and creatinine 3.79. Pancultures were done yesterday including a straight cath for urine culture, sputum culture and blood culture. Arterial line was removed as well as midline. She is currently on propofol, fen tanyl and started on Nimbex today. 10/06: Patient remains in the intensive care unit. Today patient in prone position and remains on mechanical ventilation with tidal volume 350, FiO2 65 and PEEP of 14. Her last documented fever was yesterday at 2 PM. Heart rate is in the 120s, respiratory rate 32, pulse ox 88-92%. CBC is unremarkable. Electrolytes are normal. BUN 30 creatinine 2.93. Blood sugars are running between 135 and 164. Cultures from October 04: Blood culture no growth, sputum culture finalized, urine culture finalized. Catheter tip culture is in process. Repeat chest x-ray shows bilateral interstitial infiltrates. Patient is on tube feedings of Nepro at goal of 30 ML's per hour. Patient underwent dialysis yesterday and is scheduled for repeat dialysis today. 10/07: Patient maintains in the intensive care unit intubated and on mechanical ventilation. She is receiving hemodialysis this morning has been every day. Plan is to remove 2-1/2 L today. Vent settings have changed today with tidal volume 350, FiO2 was increased to 100% and PEEP remains at 14. She has been continued on Nimbex, fentanyl, norepinephrine and propofol. Plan is to prone position patient following dialysis. Repeat chest x-ray reveals worsening interstitial infiltrates. BUN is 26 and creatinine 2.59. LDH 955, C-reactive protein 22.1. Prognosis remains poor. 10/08: Patient remains in intensive care unit intubated and on mechanical ventilation with tidal volume 350, FiO2 60, PEEP of 14. She is pronating today. She is scheduled for hemodialysis on a daily basis. She has been afebrile, heart rate 112, respiratory rate 36, blood pressure 161/88, pulse ox 93%. Repeat blood work reveals WBC 9.9, hemoglobin 9.1, platelet count 320. Sodium 133, potassium 5.3, chloride 100, CO2 20, BUN 29 creatinine 2.44. Blood sugar running between 102 and 139. LDH 1026, C-reactive protein 19.7. 10/09: Patient is undergoing dialysis this morning. She continues to be intubated and on mechanical ventilation with tidal volume 350, 270 and PEEP of 14. Patient is also on propofol, Nimbex, norepinephrine and fentanyl drips. Repeat chest x-ray reveals persistent bilateral multifocal and confluent opacities consistent with Covid 19. She is afebrile, heart rate 116, respiratory rate 36, blood pressure 120/65, pulse ox 91%. Repeat blood work reveals WBC 5.4, hemoglobin 9.2, platelet count 216. D-dimer 2.67, ferritin 2568, LDH 794, C- reactive protein 13.9. Blood sugars have been running 90-104. Creatinine 1.64. She is on daily dialysis treatment. 10/10: She remains in the intensive care unit. She is now out of isolation as a repeat Covid test came back negative. She remains on mechanical ventilation with tidal volume 350, FiO2 70 and PEEP of 14. Patient is also on Nimbex, propofol, norepinephrine, fentanyl drips. She is on PEG tube feedings at goal and tolerating well. Repeat blood work reveals WBC 7.8, hemoglobin 7.5, platelet count 267. Sodium 139, potassium 3.9, chloride 109, CO2 20, BUN 20 creatinine 1.29. Blood sugars are running between 76 and 102. Scheduled Aiyana Log decreased to 3 units. Repeat chest x-ray reveals moderate cardiomegaly and continued pulmonary edema. Slight interval improvement. Patient is continued on daily hemodialysis. 10/11: Patient remains in intensive care unit on mechanical ventilation with tidal volume 325, FiO2 70, PEEP 14. She is currently being prone. She underwent hemodialysis this morning with removal of 4 L of fluid with plan to continue daily treatment. She is currently on Nimbex, fentanyl and propofol. No vasopressor at this time. Fecal management system remains in place. She is on tube feedings currently at hold due to prone positioning. Patient has been afebrile, heart rate 116, respiratory rate 36, blood pressure 100/58, pulse ox 93-96%. Repeat blood work reveals WBC 9.3, hemoglobin 8.1, platelet count 276. Sodium 136, potassium 4.3, chloride 103, CO2 20, BUN 20 creatinine 1.14. Blood sugars running between 133 and 202. 10/12: Patient remains in the intensive care unit. She is undergoing hemodialy sis this morning. She's been afebrile, heart rate in the 120s, respiratory rate 32, blood pressure 102/65. She is not on vasopressors. She is continued on Nimbex, fentanyl and propofol. Vent settings are currently tidal volume 325, FiO2 70, PEEP 14. Total platelet count 273. Sodium 133, potassium 4.7, chloride 100, CO2 19, BUN 21 creatinine 0.91. Blood sugars running between 121 and 143. 10/13: Patient remain in the ICU she is on hemodialysis daily, she is still on the vent with a PEEP of 14 and FiO2 of 70. Her oxygenation is marginal pulse rate still high. Patient had scratched cornea was seen in ophthalmology decided to keep doing eyedrops along with eye patch at this point. Prognosis still very bad this point. 10/14: She remains on mechanical ventilation with tidal volume 325, FiO2 70% and PEEP of 14. She did require label fed last evening for about 6 hours. She did not tolerate pronating yesterday. She is undergoing dialysis this morning with plan for removal of 4 L. Blood sugars have been low and IV fluids changed to D10 until blood sugars have recovered. Levemir and scheduled NovoLog discontinued. Patient is on tube feedings at goal there's been no change in th is. 10/15 patient remains on mechanical ventilation in the intensive care unit. FiO2 still at 70%, PEEP of 18. Blood sugars have improved since medications were adjusted. White blood cells 33.9, hemoglobin 8.5, sodium 135, BUN 19, creatinine 0.96. Patient to receive dialysis again today. Patient did run a low-grade fever throughout the night and pro calcitonin level is ordered. Chest x-ray showed continued diffuse bilateral airspace disease. Patient remains on tube feedings at goal. 10/16: Patient remains on mechanical ventilation with tidal volume 300, FiO2 70, PEEP of 15. Fecal management system is out. She is currently on low dose of norepinephrine. She is also on fentanyl drip, propofol drip, rocuronium drip. Heart rate is running in the 130s, sinus rhythm, blood pressure 121/63, pulse ox 95%. Patient is been afebrile. Repeat blood work reveals WBC 18.9, hemoglobin 7.5, platelet count 291. Sodium 135, potassium 4.2, chloride 101, CO2 19, BUN 25 and creatinine 1.36. Blood sugars are running between 143 and 199. Patient is on scale insulin only. Repeat chest x-ray reveals persistent bilateral multifocal and completed opacities consistent with Covid 19. 10/17: Patient remains on mechanical ventilation with tidal volume 300, FiO2 50, PEEP of 14. She is currently receiving hemodialysis. The patient is having yellow-colored drainage from the trach site. This is going to be culture today. Repeat blood work reveals WBC of 24, hemoglobin 7.3 and platelet count 310. Sodium 136, potassium 4.1, chloride 101, CO2 19, BUN 24 creatinine 1.43. Blood sugar 139. Capillary blood glucose running 147 and 189. Repeat chest x-ray is unchanged. Patient had increased respiratory rate 40s and 50s with oxygen saturation of 87 and now was increased and Seroquel added this morning. Prognosis remains guarded. 10/18: Patient remains on mechanical ventilation with tidal volume 300, FiO2 60, PEEP has been decreased to 12. Patient will need a PEEP of 8 in order to tra nsfer to long-term care. She is currently on fentanyl drip and Precedex drip. Patient is tracking when her name is stated. She seems to be slightly improved today. Patient has been afebrile, heart rate 106, respiratory rate 32, blood pressure 110/61, pulse ox 98%. Repeat blood work reveals WBC 30.3, hemoglobin 7.2, platelet count 350. Sodium 139, potassium 4.2, chloride 103, CO2 20, BUN 23 creatinine 1.79. Blood sugars are increasing running up 299. Patient will be placed on Levemir. Secretions from tracheotomy sent for culture and in process. She is currently undergoing hemodialysis. 10/23: Patient remains in the intensive care unit on mechanical ventilation with tidal volume 300, FiO2 65 and PEEP of 10. hall monitor has been in a sinus rhythm. Patient does open her eyes and appears to be tracking. Blood sugars have been elevated. Levemir will be increased to 40 units daily and scheduled NovoLog increased to 12 units and continue NovoLog every 6 hours per scale. Patient is receiving hemodialysis today. She is not currently on vasopressors. Patient is on Precedex drip only. Antibiotics in the form of cefepime were started on October 18. Patient has been afebrile, heart rate 126, respiratory rate 36, blood pressure 163/105. Pulse ox 91%. Repeat blood work reveals WBC 16.0, hemoglobin 7.2, platelet count 208. Electrolytes are within normal limits. BUN 62 and creatinine 2.43. Blood sugars running between 259-321. Most recent blood culture from [facility] 20 is no growth at 24 hours. Repeat chest x-ray reveals cardiomegaly and persistent bilateral pulmonary edema. REVIEW OF SYSTEMS Unable to obtain due to mechanical ventilation. PHYSICAL EXAMINATION Gen: This is is a 35-year-old black female, patient is on mechanical ventilation, appears to be comfortable. HEENT: Head is atraumatic, normocephalic. Pupils equal, round. Sclerae is anicteric. Patient is blinking eyes. Tracheostomy midline. NECK: Supple. No JVD. No lymphadenopathy. No thyromegaly. LUNGS: Lung sounds are diminished at the bases but otherwise clear to auscultation. No intercostal retractions. HEART: Regular rate and rhythm. No murmur. hall monitor sinus tachycardia. ABDOMEN: Soft. Bowel sounds are present. No masses. No tenderness. EXTREMITIES: Trace bilateral pedal edema. No calf tenderness. NEUROLOGICAL: Patient is able to follow simple commands, significant weakness. ASSESSMENT AND PLAN 1. Acute hypoxic respiratory failure secondary to Covid 19 pneumonia and possible bacterial pneumonia. Patient was intubated on September 11. She is status post 1 dose of Remdesivir and 1 dose of Tocilizumab. Continue Ventolin inhaler 4 times daily, Lovenox 30 mg subcu daily, supplements. Status post PEG tube and trach. Continue cefepime. 2. Acute diabetic ketoacidosis secondary to Covid 19 pneumonia, uncontrolled with hyperglycemia. Levemir increased to 40 units and scheduled NovoLog inc reased to 12 units every 6 hours and continue NovoLog scale every 6 hours. 3. Metabolic encephalopathy secondary to Covid 19 and DKA. 4. Sepsis and septic shock secondary to Covid 19 pneumonia with multiorgan failure. Continue as in #1. Trach drainage cultured. 5. Acute metabolic acidosis secondary to acute DKA, Covid 19 and acute kidney injury. Renvela 1600 mg 3 times daily.. 6. Diabetes mellitus type 2 uncontrolled with A1c 13.6. Continue as above. 7. Hypophosphatemia status post replacement. 8. Hyperkalemia secondary to DKA, resolved. 9. Sinus tachycardia secondary to sepsis, volume deficiency. 10. Acute kidney injury secondary to ATN secondary to Covid 19 and DKA. Continue daily hemodialysis. Permanent dialysis catheter placed. 11. Possible acute gram-negative pneumonia versus MRSA pneumonia. Completed course of antibiotics. 12. Hypertension. 13. Morbid obesity with BMI of 53. 14. DVT prophylaxis. Lovenox. 15. GI prophylaxis. Protonix 40 mg IV push daily. CODE STATUS: Full code Prognosis poor. 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 Kimberly Boswell nurse practitioner acting as scribe for signing physician. Objective - Vital Signs Vital signs: Vital Signs Temp 99.7 F H 10/23/20 08:00 Pulse 130 H 10/23/20 10:00 Resp 32 H 10/23/20 10:00 BP 102/70 10/23/20 10:00 Pulse Ox 92 L 10/23/20 10:00 Intake & Output 10/22/20 10/23/20 10/23/20 18:59 06:59 18:59 Intake Total 1155.324 762 411.935 Output Total 0 0 0 Balance 1155.324 762 411.935 Weight 108 kg Intake: IV 290 30 30 Cefepime 1 gm In Sodium 50 Chloride 0.9% 50 ml @ 12. 5 mls/hr IVPB Q24H [facility] Rx #:[id number] Sodium Chloride 0.9% 500 240 30 30 ml 500 ml @ 10 mls/hr IV .Q24H [facility] Rx#:[id number] Intake, IV Titration 103.324 37.935 Amount Dexmedetomidine/0.9% NaCl 32.055 (Pmx) 400 mcg In Empty Bag 1 bag @ Titrate IV . Q0M [facility] Rx#:[id number] Dexmedetomidine/0.9% NaCl 71.269 (Pmx) 400 mcg In Empty Bag 1 bag @ Titrate IV . Q0M [facility] Rx#:[id number] Dexmedetomidine/0.9% NaCl 37.935 (Pmx) 400 mcg In Empty Bag 1 bag @ Titrate IV . Q0M [facility] Rx#:[id number] Tube Feeding 672 672 224 Other 90 60 120 Output: Urine 0 0 0 Other: Voiding Method Incontinent ABP, PAP, CO, CI - Last Documented Arterial Blood Pressure 136/76 - Labs CBC & Chem 7: 10/24/20 03:00 10/24/20 03:00 Labs: Abnormal Lab Results - Last 24 Hours (Table) 10/22/20 10/22/20 10/22/20 Range/Units 11:35 17:57 23:14 WBC (3.8-10.6) k/uL RBC (3.80-5.40) m/uL Hgb (11.4-16.0) gm/dL Hct (34.0-46.0) % MCHC (31.0-37.0) g/dL RDW (11.5-15.5) % Neutrophils # (1.3-7.7) k/uL Lymphocytes # (1.0-4.8) k/uL ABG pH (7.35-7.45) ABG pCO2 (35-45) mmHg ABG pO2 (83-108) mmHg ABG HCO3 (21-25) mmol/L ABG Total CO2 (19-24) mmol/L ABG O2 Saturation (94-97) % BUN (7-17) mg/dL Creatinine (0.52-1.04) mg/dL Glucose (74-99) mg/dL POC Glucose (mg/dL) 308 H 283 H 259 H (75-99) mg/dL Total Protein (6.3-8.2) g/dL Albumin (3.5-5.0) g/dL 10/23/20 10/23/20 10/23/20 Range/Units 04:00 04:00 04:58 WBC 16.0 H (3.8-10.6) k/uL RBC 2.54 L (3.80-5.40) m/uL Hgb 7.2 L (11.4-16.0) gm/dL Hct 23.2 L (34.0-46.0) % MCHC 30.9 L (31.0-37.0) g/dL RDW 17.9 H (11.5-15.5) % Neutrophils # 13.8 H (1.3-7.7) k/uL Lymphocytes # 0.9 L (1.0-4.8) k/uL ABG pH 7.32 L (7.35-7.45) ABG pCO2 50 H (35-45) mmHg ABG pO2 60 L (83-108) mmHg ABG HCO3 26 H (21-25) mmol/L ABG Total CO2 27 H (19-24) mmol/L ABG O2 Saturation 89.5 L (94-97) % BUN 62 H (7-17) mg/dL Creatinine 2.43 H (0.52-1.04) mg/dL Glucose 275 H (74-99) mg/dL POC Glucose (mg/dL) (75-99) mg/dL Total Protein 5.0 L (6.3-8.2) g/dL Albumin 2.4 L (3.5-5.0) g/dL 10/23/20 Range/Units 06:19 WBC (3.8-10.6) k/uL RBC (3.80-5.40) m/uL Hgb (11.4-16.0) gm/dL Hct (34.0-46.0) % MCHC (31.0-37.0) g/dL RDW (11.5-15.5) % Neutrophils # (1.3-7.7) k/uL Lymphocytes # (1.0-4.8) k/uL ABG pH (7.35-7.45) ABG pCO2 (35-45) mmHg ABG pO2 (83-108) mmHg ABG HCO3 (21-25) mmol/L ABG Total CO2 (19-24) mmol/L ABG O2 Saturation (94-97) % BUN (7-17) mg/dL Creatinine (0.52-1.04) mg/dL Glucose (74-99) mg/dL POC Glucose (mg/dL) 321 H (75-99) mg/dL Total Protein (6.3-8.2) g/dL Albumin (3.5-5.0) g/dL
[2020-10-24] MEDS: ALBUTEROL HFA INHALER INHALATION SCH ×4 (08:35→21:27)
[2020-10-24] MEDS: PANTOPRAZOLE 40 MG/10 ML VIAL IVP SCH (08:47)
[2020-10-24] MEDS: DILTIAZEM ORAL 60 MG TAB PO SCH ×3 (08:47→20:40)
[2020-10-24] MEDS: CHOLECALCIFEROL 25 MCG (1000 IU) TABLET PO SCH (08:47)
[2020-10-24] MEDS: ENOXAPARIN 30 MG/0.3 ML SYRINGE SQ SCH (08:47)
[2020-10-24] MEDS: CHLORHEXIDINE GLUCONATE 15 ML CUP MUCOUS MEM SCH ×2 (08:47→20:41)
[2020-10-24] MEDS: QUEtiapine 100 MG TAB PO SCH ×2 (08:47→20:40)
[2020-10-24] MEDS: ASCORBIC ACID 500 MG TAB PO SCH ×2 (08:47→20:40)
--- NOTE | 2020-10-24 09:36 | P.PN ---
Subjective Patient is seen in follow-up for acute kidney injury. Oliguric. Status post tracheostomy and PEG tube placement this admission. Receiving tube feeding. Currently on 60% FiO2. Tolerating dialysis well. She is awake. Vital signs: Stable. General: The patient appeared well nourished and normally developed. HEENT: Tracheostomy noted. LUNGS: Breath sounds decreased. HEART: Regular rate and rhythm. Abdomen: Soft, no distention. EXTREMITITES: 1+ edema. Objective - Vital Signs Vital signs: Vital Signs Temp 100.1 F H 10/24/20 08:00 Pulse 126 H 10/24/20 09:00 Resp 33 H 10/24/20 09:00 BP 145/87 10/24/20 09:00 Pulse Ox 97 10/24/20 09:00 Intake & Output 10/23/20 10/24/20 10/24/20 18:59 06:59 18:59 Intake Total 1213.530 979.680 333.32 Output Total 4000 0 1100 Balance -2786.470 979.680 -766.68 Weight 108 kg 104.9 kg Intake: IV 210 120 30 Cefepime 1 gm In Sodium 100 Chloride 0.9% 50 ml @ 12. 5 mls/hr IVPB Q24H [facility] Rx #:[id number] Sodium Chloride 0.9% 500 110 120 30 ml 500 ml @ 10 mls/hr IV .Q24H [facility] Rx#:[id number] Intake, IV Titration 91.530 97.680 2.32 Amount Dexmedetomidine/0.9% NaCl 91.530 (Pmx) 400 mcg In Empty Bag 1 bag @ Titrate IV . Q0M [facility] Rx#:[id number] Dexmedetomidine/0.9% NaCl 97.680 2.32 (Pmx) 400 mcg In Empty Bag 1 bag @ Titrate IV . Q0M [facility] Rx#:[id number] Tube Feeding 672 672 171 Other 240 90 130 Output: Urine 0 0 0 Stool 1100 Hemodialysis 4000 Other: Voiding Method Incontinent Incontinent Incontinent ABP, PAP, CO, CI - Last Documented Arterial Blood Pressure 136/76 - Labs CBC & Chem 7: 10/24/20 03:00 10/24/20 03:00 Labs: Abnormal Lab Results - Last 24 Hours (Table) 10/23/20 10/23/20 10/23/20 Range/Units 11:24 17:27 23:57 WBC (3.8-10.6) k/uL RBC (3.80-5.40) m/uL Hgb (11.4-16.0) gm/dL Hct (34.0-46.0) % MCHC (31.0-37.0) g/dL RDW (11.5-15.5) % Neutrophils # (1.3-7.7) k/uL Lymphocytes # (1.0-4.8) k/uL ABG pH (7.35-7.45) ABG pCO2 (35-45) mmHg ABG pO2 (83-108) mmHg ABG HCO3 (21-25) mmol/L ABG Total CO2 (19-24) mmol/L ABG O2 Saturation (94-97) % Sodium (137-145) mmol/L BUN (7-17) mg/dL Creatinine (0.52-1.04) mg/dL Glucose (74-99) mg/dL POC Glucose (mg/dL) 327 H 278 H 242 H (75-99) mg/dL 10/24/20 10/24/20 10/24/20 Range/Units 03:00 03:00 05:53 WBC 11.0 H (3.8-10.6) k/uL RBC 2.69 L (3.80-5.40) m/uL Hgb 7.6 L (11.4-16.0) gm/dL Hct 25.0 L (34.0-46.0) % MCHC 30.4 L (31.0-37.0) g/dL RDW 17.9 H (11.5-15.5) % Neutrophils # 9.0 H (1.3-7.7) k/uL Lymphocytes # 0.9 L (1.0-4.8) k/uL ABG pH (7.35-7.45) ABG pCO2 (35-45) mmHg ABG pO2 (83-108) mmHg ABG HCO3 (21-25) mmol/L ABG Total CO2 (19-24) mmol/L ABG O2 Saturation (94-97) % Sodium 136 L (137-145) mmol/L BUN 54 H (7-17) mg/dL Creatinine 2.01 H (0.52-1.04) mg/dL Glucose 242 H (74-99) mg/dL POC Glucose (mg/dL) 260 H (75-99) mg/dL 10/24/20 Range/Units 06:05 WBC (3.8-10.6) k/uL RBC (3.80-5.40) m/uL Hgb (11.4-16.0) gm/dL Hct (34.0-46.0) % MCHC (31.0-37.0) g/dL RDW (11.5-15.5) % Neutrophils # (1.3-7.7) k/uL Lymphocytes # (1.0-4.8) k/uL ABG pH 7.33 L (7.35-7.45) ABG pCO2 54 H (35-45) mmHg ABG pO2 66 L (83-108) mmHg ABG HCO3 28 H (21-25) mmol/L ABG Total CO2 30 H (19-24) mmol/L ABG O2 Saturation 91.6 L (94-97) % Sodium (137-145) mmol/L BUN (7-17) mg/dL Creatinine (0.52-1.04) mg/dL Glucose (74-99) mg/dL POC Glucose (mg/dL) (75-99) mg/dL Microbiology - Last 24 Hours (Table) 10/22/20 20:55 Gram Stain - Preliminary Sputum Sputum Culture - Preliminary 10/22/20 09:36 Blood Culture - Preliminary Blood No Growth after 24 hours Assessment and Plan Plan: Assessment: 1. Acute kidney injury secondary to ATN secondary to COVID-19 and DKA. Baseline creatinine is near 1. Started on hemodialysis on September 14. Has p-cath. Oliguric. No hydronephrosis noted on kidney ultrasound. 2. DKA s/p insulin drip and IV fluids. 3. Acute hypoxic respiratory failure secondary to COVID-19 pneumonia. Status post tracheostomy this admission. 4. Metabolic acidosis secondary to acute kidney injury and DKA s/p bicarb drip. Improved postdialysis. 5. Hyponatremia, hypervolemic. Stable. 6. Hyperphosphatemia secondary to acute kidney injury. Maintained on Renvela. 7. Anemia of chronic illness and kidney disease. Maintained on Aranesp. Iron deficiency noted - s/p iv iron. 8. Fluid overload. Improving with daily ultrafiltration. Plan: Currently seen while undergoing hemodialysis. Continue with daily dialysis mostly for ultrafiltration. Maintain tube feeds. Avoid nephrotoxins. Continue to monitor renal function and urine output. Monitor for renal recovery. Wean FiO2.
[2020-10-24] MEDS ORDERED: INSULIN ASPART (NovoLOG) 100 UNIT/ML VIAL SQ SCH (11:04)
--- NOTE | 2020-10-24 11:15 | P.PN ---
Subjective Progress Note Date: 10/24/20 CHIEF COMPLAINT: COVID-19 pneumonia HISTORY OF PRESENT ILLNESS: Patient is in the ICU for COVID-19 pneumonia and respiratory failure. She is status post tracheostomy and PEG tube placement with Dr. Hollis. Patient is tolerating tube feedings. Patient's to feedings are at 56 mL per hour. Patient remains on mechanical ventilation. She is off the sedation. She has been getting daily hemodialysis. Patient is awake and responding to simple commands. Apparently patient did have a tracheostomy leak when nursing staff changed positioning of patient in her bed. At this time there is no leak. Afebrile. Tachycardic. WBC 11 Patient seen and examined with Dr. hollis PHYSICAL EXAM: VITAL SIGNS: Reviewed. GENERAL: Well-developed in no acute distress. HEENT: No sclera icterus. Extraocular movements grossly intact. Moist buccal mucosa. Head is atraumatic, normocephalic. No drainage from a tracheostomy at this time ABDOMEN: Soft. Nondistended. Nontender. PEG tube site clean dry and intact NEUROLOGIC: Awake and opens eyes ASSESSMENT: 1. Acute hypoxic respiratory failure with prolonged mechanical ventilation due to COVID-19 pneumonia status post tracheostomy placement 2. Severe protein calorie malnutrition status post PEG tube placement PLAN: -Continue tube feedings -Continue supportive care -Continue ICU management -Continue trach care and monitor for tracheostomy leak Physician Sports Teacher note has been reviewed by physician. Signing provider agrees with the documented findings, assessment, and plan of care. Objective - Vital Signs Vital signs: Vital Signs Temp 100.1 F H 10/24/20 08:00 Pulse 126 H 10/24/20 09:00 Resp 33 H 10/24/20 09:00 BP 145/87 10/24/20 09:00 Pulse Ox 97 10/24/20 09:00 Intake & Output 10/23/20 10/24/20 10/24/20 18:59 06:59 18:59 Intake Total 1213.530 979.680 333.32 Output Total 4000 0 1100 Balance -2786.470 979.680 -766.68 Weight 108 kg 104.9 kg Intake: IV 210 120 30 Cefepime 1 gm In Sodium 100 Chloride 0.9% 50 ml @ 12. 5 mls/hr IVPB Q24H [facility] Rx #:[id number] Sodium Chloride 0.9% 500 110 120 30 ml 500 ml @ 10 mls/hr IV .Q24H [facility] Rx#:[id number] Intake, IV Titration 91.530 97.680 2.32 Amount Dexmedetomidine/0.9% NaCl 91.530 (Pmx) 400 mcg In Empty Bag 1 bag @ Titrate IV . Q0M [facility] Rx#:[id number] Dexmedetomidine/0.9% NaCl 97.680 2.32 (Pmx) 400 mcg In Empty Bag 1 bag @ Titrate IV . Q0M [facility] Rx#:[id number] Tube Feeding 672 672 171 Other 240 90 130 Output: Urine 0 0 0 Stool 1100 Hemodialysis 4000 Other: Voiding Method Incontinent Incontinent Incontinent ABP, PAP, CO, CI - Last Documented Arterial Blood Pressure 136/76 - Labs CBC & Chem 7: 10/24/20 03:00 10/24/20 03:00 Labs: Abnormal Lab Results - Last 24 Hours (Table) 10/23/20 10/23/20 10/23/20 Range/Units 11:24 17:27 23:57 WBC (3.8-10.6) k/uL RBC (3.80-5.40) m/uL Hgb (11.4-16.0) gm/dL Hct (34.0-46.0) % MCHC (31.0-37.0) g/dL RDW (11.5-15.5) % Neutrophils # (1.3-7.7) k/uL Lymphocytes # (1.0-4.8) k/uL ABG pH (7.35-7.45) ABG pCO2 (35-45) mmHg ABG pO2 (83-108) mmHg ABG HCO3 (21-25) mmol/L ABG Total CO2 (19-24) mmol/L ABG O2 Saturation (94-97) % Sodium (137-145) mmol/L BUN (7-17) mg/dL Creatinine (0.52-1.04) mg/dL Glucose (74-99) mg/dL POC Glucose (mg/dL) 327 H 278 H 242 H (75-99) mg/dL 10/24/20 10/24/20 10/24/20 Range/Units 03:00 03:00 05:53 WBC 11.0 H (3.8-10.6) k/uL RBC 2.69 L (3.80-5.40) m/uL Hgb 7.6 L (11.4-16.0) gm/dL Hct 25.0 L (34.0-46.0) % MCHC 30.4 L (31.0-37.0) g/dL RDW 17.9 H (11.5-15.5) % Neutrophils # 9.0 H (1.3-7.7) k/uL Lymphocytes # 0.9 L (1.0-4.8) k/uL ABG pH (7.35-7.45) ABG pCO2 (35-45) mmHg ABG pO2 (83-108) mmHg ABG HCO3 (21-25) mmol/L ABG Total CO2 (19-24) mmol/L ABG O2 Saturation (94-97) % Sodium 136 L (137-145) mmol/L BUN 54 H (7-17) mg/dL Creatinine 2.01 H (0.52-1.04) mg/dL Glucose 242 H (74-99) mg/dL POC Glucose (mg/dL) 260 H (75-99) mg/dL 10/24/20 Range/Units 06:05 WBC (3.8-10.6) k/uL RBC (3.80-5.40) m/uL Hgb (11.4-16.0) gm/dL Hct (34.0-46.0) % MCHC (31.0-37.0) g/dL RDW (11.5-15.5) % Neutrophils # (1.3-7.7) k/uL Lymphocytes # (1.0-4.8) k/uL ABG pH 7.33 L (7.35-7.45) ABG pCO2 54 H (35-45) mmHg ABG pO2 66 L (83-108) mmHg ABG HCO3 28 H (21-25) mmol/L ABG Total CO2 30 H (19-24) mmol/L ABG O2 Saturation 91.6 L (94-97) % Sodium (137-145) mmol/L BUN (7-17) mg/dL Creatinine (0.52-1.04) mg/dL Glucose (74-99) mg/dL POC Glucose (mg/dL) (75-99) mg/dL Microbiology - Last 24 Hours (Table) 06/20/21 20:55 Gram Stain - Preliminary Sputum Sputum Culture - Preliminary Gram Neg Bacilli 10/22/20 09:36 Blood Culture - Preliminary Blood No Growth after 24 hours
[2020-10-24 11:39] LABS: Glucose,Whole Blood 182 mg/dL (75-99)
--- NOTE | 2020-10-24 13:13 | P.PN ---
Subjective Progress Note Date: 10/24/20 Principal diagnosis: Acute hypoxic respiratory failure secondary to COVID-19 pneumonia and ARDS secondary to COVID-19 pneumonia 10/22/2020, I'm seeing the patient for a follow-up. This morning, she is on a Precedex drip at 0.6 micrograms per kilogram per hour.she is awake. She communicates well. She is barely able to move her fingers and toes pH is unable to raise them against gravity. She has profound weakness. Also, the patient is still on mechanical ventilator. She assist-control mode rate of 32 with a tidal volume of 300 and FiO2 of 60% with a PEEP of 10. Blood gases from today showed a pH of 7.38 with a pCO2 of 48 and pO2 of 65. The chest x-ray from today shows no significant interval change in the patient that she is back to Diffuse bilateral pulmonary infiltrates unchanged from yesterday's evaluation. There is some cardiomegaly. No significant orotracheal secretions. On examination she has some scattered rhonchi. Her previous sputum culture was positive for Acinetobacter and the patient is currently on IV cefepime. Her white cell count has dropped in the morning white cell count today is at 13.3. Nevertheless, overnight, the patient had spikes of temperature with a T-max of 11.3. Repeat cultures will be done accordingly. The patient is currently off steroids. The patient's is slightly tachycardic and we have started on oral Cardizem for rate control. She is in sinus tachycardia. She is also slightly tachypneic. She is uncertain 400 mg by mouth twice a day. No other significant events overnight. He is tolerating her enteral feeding for nutritional support. Her last bout of dialysis was yesterday. Her volume status is improved considerably.She is post prolonged respiratory failure due to COVID-19 related ARDS/pneumonia.the blood sugars are slightly elevated. he is currently off Decadron and increased the Levemir dose for a tighter blood sugar control.I made an adjustment and increase her Levemir insulin up to 30 units once a day along with a slight scale coverage. Patient was reevaluated today on 10/23/2020, patient remains in ICU remains intubated and mechanically ventilated. Patient is on volume control plus rate of 300,And I increased the volume up to 350. She is on rate of 32FiO2 was increased to 65% PEEP remains at 10 EGD this morning showed a pO2 of 60 pCO2 of 50 pH of 7.32. Patient is off all narcotics and paralytics, she is however on Precedex at 0.4 mcg/kg/m. She is still receiving tube feeding via PEG tube. She is on vital AF at 56 mL/hour. Patient did not receive hemodialysis yesterday, however she is scheduled to have hemodialysis today. Remains tachycardic, but hemodynamically stable not requiring pressors at this point. Patient is on Cardizem to control her sinus tachycardia. Chest x-ray continues to show evidence of bilateral interstitial infiltrates secondary to ARDS and s uspect some component of fluid overload secondary to renal failure. No dialysis was done yesterday. Her peak airway pressure is 30 . WBC count is 16 hemoglobin is 7.2 platelets are 2086 metabolic profile is normal except BUN of 62 creatinine 2.43. Blood sugar is 327 remains on cefepime at 1 g every 24 hours. Patient is also on Lovenox at 30 mg subcu daily. She is also on Seroquel at 100 twice a day. Protonix 40 mg IV push daily. Patient was reevaluated today on 10/24/2020, remains in the ICU, intubated and mechanically ventilated. Patient is on assist control rate of 3 to tidal volume of 350 and I increased that up to 375 patient had a bit of a cough leak. She is on 60% FiO2 and PEEP is at 10 and I cut it down to 8. Last ABG this morning on 60% showed a pO2 of 66 pCO2 of 54 pH of 7.33. Patient remains on hemodialysis, yesterday she had 4 L off. Last night she had an episode of nonsustained ventricular tachycardia without any symptoms. She had a relatively normal labs. Patient remains on tube feeding using vital AF, at goal 56 mL per hour. On the ventilator, patient seems to be a bit tachypneic, her peak airway pressure is 30 5O pressure is 24. Chest x-ray continues to show bilateral interstitial infiltrates. CBC today is relatively normal hemoglobin is 7.6. Basic metabolic profile is normal. BUN is 54 creatinine 2.01 Objective - Vital Signs Vital signs: Vital Signs Temp 98.6 F 10/24/20 12:23 Pulse 133 H 10/24/20 12:23 Resp 35 H 10/24/20 12:23 BP 130/70 10/24/20 12:23 Pulse Ox 95 10/24/20 12:00 Intake & Output 10/23/20 10/24/20 10/24/20 18:59 06:59 18:59 Intake Total 1213.530 979.680 558.32 Output Total 4000 0 4000 Balance -2786.470 979.680 -3441.68 Weight 108 kg 104.9 kg Intake: IV 210 120 60 Cefepime 1 gm In Sodium 100 Chloride 0.9% 50 ml @ 12. 5 mls/hr IVPB Q24H [facility] Rx #:[id number] Sodium Chloride 0.9% 500 110 120 60 ml 500 ml @ 10 mls/hr IV .Q24H [facility] Rx#:[id number] Intake, IV Titration 91.530 97.680 2.32 Amount Dexmedetomidine/0.9% NaCl 91.530 (Pmx) 400 mcg In Empty Bag 1 bag @ Titrate IV . Q0M [facility] Rx#:[id number] Dexmedetomidine/0.9% NaCl 97.680 2.32 (Pmx) 400 mcg In Empty Bag 1 bag @ Titrate IV . Q0M [facility] Rx#:[id number] Tube Feeding [phone] Other 240 90 160 Output: Urine 0 0 0 Hemodialysis 4000 4000 Other: Voiding Method Incontinent Incontinent Incontinent ABP, PAP, CO, CI - Last Documented Arterial Blood Pressure 136/76 - Exam GENERAL EXAM: Revealed a 35-year-old female, obese, on mechanical ventilation, off Precedex, awake, follows very simple instructions remained generally profoundly weak HEAD: Normocephalic/atraumatic. Tracheostomy is intact. Minimal cuff leak is noted. EENT: PERRLA, EOMI, nonicteric, no neck masses, no JVD, CHEST: No chest wall deformity. Symmetrical expansion. LUNGS: Fine crackles at the bases no rhonchi and no wheezes. CVS: normal S1 and S2, no S3 gallop, no murmur. ABDOMEN: Obese soft nontender no megaly no rebound no guarding. PEG tube is intact. EXTREMITIES: No clubbing, 1+ bipedal edema, no cyanosis, 2+ pulses and upper and lower extremities. Psychiatric: Arousable, slightly anxious. follows simple instructions. But profoundly weak. SKIN: No rashes CENTRAL NERVOUS SYSTEM: No gross focal neurologic deficit except the patient is profoundly weak and this is clearly secondary to her underlying critical illness polyneuropathy and myopathy - Labs CBC & Chem 7: 10/24/20 03:00 10/24/20 03:00 Labs: Abnormal Lab Results - Last 24 Hours (Table) 10/23/20 10/23/20 10/24/20 Range/Units 17:27 23:57 03:00 WBC 11.0 H (3.8-10.6) k/uL RBC 2.69 L (3.80-5.40) m/uL Hgb 7.6 L (11.4-16.0) gm/dL Hct 25.0 L (34.0-46.0) % MCHC 30.4 L (31.0-37.0) g/dL RDW 17.9 H (11.5-15.5) % Neutrophils # 9.0 H (1.3-7.7) k/uL Lymphocytes # 0.9 L (1.0-4.8) k/uL ABG pH (7.35-7.45) ABG pCO2 (35-45) mmHg ABG pO2 (83-108) mmHg ABG HCO3 (21-25) mmol/L ABG Total CO2 (19-24) mmol/L ABG O2 Saturation (94-97) % Sodium (137-145) mmol/L BUN (7-17) mg/dL Creatinine (0.52-1.04) mg/dL Glucose (74-99) mg/dL POC Glucose (mg/dL) 278 H 242 H (75-99) mg/dL 10/24/20 10/24/20 10/24/20 Range/Units 03:00 05:53 06:05 WBC (3.8-10.6) k/uL RBC (3.80-5.40) m/uL Hgb (11.4-16.0) gm/dL Hct (34.0-46.0) % MCHC (31.0-37.0) g/dL RDW (11.5-15.5) % Neutrophils # (1.3-7.7) k/uL Lymphocytes # (1.0-4.8) k/uL ABG pH 7.33 L (7.35-7.45) ABG pCO2 54 H (35-45) mmHg ABG pO2 66 L (83-108) mmHg ABG HCO3 28 H (21-25) mmol/L ABG Total CO2 30 H (19-24) mmol/L ABG O2 Saturation 91.6 L (94-97) % Sodium 136 L (137-145) mmol/L BUN 54 H (7-17) mg/dL Creatinine 2.01 H (0.52-1.04) mg/dL Glucose 242 H (74-99) mg/dL POC Glucose (mg/dL) 260 H (75-99) mg/dL 10/24/20 Range/Units 11:37 WBC (3.8-10.6) k/uL RBC (3.80-5.40) m/uL Hgb (11.4-16.0) gm/dL Hct (34.0-46.0) % MCHC (31.0-37.0) g/dL RDW (11.5-15.5) % Neutrophils # (1.3-7.7) k/uL Lymphocytes # (1.0-4.8) k/uL ABG pH (7.35-7.45) ABG pCO2 (35-45) mmHg ABG pO2 (83-108) mmHg ABG HCO3 (21-25) mmol/L ABG Total CO2 (19-24) mmol/L ABG O2 Saturation (94-97) % Sodium (137-145) mmol/L BUN (7-17) mg/dL Creatinine (0.52-1.04) mg/dL Glucose (74-99) mg/dL POC Glucose (mg/dL) 182 H (75-99) mg/dL Microbiology - Last 24 Hours (Table) 10/22/20 09:36 Blood Culture - Preliminary Blood No Growth after 48 hours 10/22/20 20:55 Gram Stain - Preliminary Sputum Sputum Culture - Preliminary Gram Neg Bacilli Assessment and Plan Assessment: Impression: Acute hypoxic respiratory failure secondary to COVID-19 pneumonia and ARDS secondary to COVID-19 pneumonia, patient was transferred to the ICU on 09/11, intubated on 09/11, received REM on 09/11, received T OCI on 09/11, tracheostomy and PEG tube placement on 09/18 remains on mechanical ventilation with volume control plus mode , she is presently on the 65 percent FiO2 and PEEP of 10 Assist control rate of 32, patient is on volume control plus with tidal volume of 350 Acute kidney injury with complete shutdown of urine output/anuria, requiring hemodialysis. Remains on hemodialysis Acute diabetic ketoacidosis and COVID-19 pneumonia on her initial presentation. Sepsis secondary to COVID-19 pneumonia Type 2 diabetes poorly controlled. Hemoglobin A1c of 13.6. Elevated inflammatory markers secondary to acute COVID-19 pneumonia not much of a change in the last few days in the inflammatory markers. History of hypertension. Generalized anxiety disorder. Morbid obesity BMI of 54.2. Status post tracheostomy and PEG tube placement on 09/18. Corneal injury, punctate keratitis left eye. Acinetobacter in sputum, patient remains on cefepime. Critical illness polyneuropathy and myopathy Episodic fever, presently under control. Nonsustained ventricular tachycardia. Recommendation: Continue ventilatory support. Decreased FiO2 to 60% and PEEP down to 8 increased volume to 375. Continue physical therapy. Continue insulin and adjust dose accordingly. Continue to hold Precedex. Continue Seroquel. Continue cefepime for Acinetobacter infection. Continue dialysis as per nephrology on the case. Continue Lovenox 30 mg subcu daily Continue nutritional support. Enteral feeding via PEG tube. Continue GI and DVT prophylaxis. Prognosis remains guarded and the patient is critical. Patient is not quite ready to be transferred to long-term acute care, but as we cut down her FiO2 and her PEEP which is now at 8, and FiO2 remains above 50%, we will address eventual transfer to LTAC. Critical care time is over 30 minutes Time with Patient: Greater than 30
[2020-10-24] MEDS: CEFEPIME 1 GM in SODIUM CHLORIDE 0.9% 50 ML IVPB SCH (13:38)
--- NOTE | 2020-10-24 15:24 | P.PN ---
Subjective Progress Note Date: 10/24/20 HISTORY OF PRESENT ILLNESS 35-year-old female patient of Dr. Arroyo with past medical history of type 2 diabetes comes in with acute shortness of breath associated with high light s ugars. Patient on admission was found to have a fever of 101.5 pulse rate 125 respiratory rate 20. Blood pressure 132/106. On chest x-ray obtained in the ER suggestive of bilateral infiltrates concerning for call with pneumonia. COVID PCR was positive. On admissions patient had an ABG with a pH of 7.14 pCO2 of 20, pO2 of 59, bicarb of 7. Patient's blood sugar on admission was 424 on assessment today patient's blood work patient had a sodium 135 potassium 5.4 chloride 123 bicarb less than 5 and creatinine 0.73. D-dimer was elevated on admission patient 9 28 patient given 1 L of IV fluids followed by normal saline running at 200 mL/h. Patient was positive for acetone on admission. She will anion gap closed and was switched to D5NS. Insulin drip was continued during the night and was switched to patient's home medication this morning. One dose of remdesiver was ordered. Apparently around noon, A- team was called on the patient secondary to hypoxia patient's oxygen saturation dropped to the 70s and 80s on 100% nonrebreather. Patient was switched to BiPAP on 18/12 and is doing better o FiO2 of 80%. ABG was obtained and ph was 7. 14 pCO2 of 28 bicarb of 7 pO2 of 17. Patient noted to have uncompensated metabolic acidosis with compensated respiratory alkalosis. Stat dose of 1 amp bicarb was given and followed by sodium bicarbonate drip. Insulin drip restarted. Patient's initiated on dexamethasone 6 mg IV twice a day. Potassium phosphate ordered as phosphorus is low. Patient's repeat blood gases suggest a pH of 7.25, CO2 32 pO2 of 72 bicarb 14. I will not normal saline at 100 mL/h as patient's anion gap has increased. Patient given 1 dose of 2 mg of morphine with improvement in respiratory rate. One dose of Ativan 0.5 mg was given. Xanax 0.25 twice a day along with Ativan 0.5 IV every 6 hours ordered for the patient. Vitals were evaluated patient pulse 129 [id number]. She was moved to the ICU. Precedex drip was initiated. Lopressor was initiated at 25 twice a day. Metoprolol tartrate 5 mg IV every 6 hours. Systolic blood pressure more than 160. Started chest x-ray was obtained and suggest stable bilateral consolidation suggestive of COVID-19 pneumonia. 09/12 patient is seen in the ICU is currently mechanically ventilated and sedated on vent settings of respiratory rate 36, tidal volume 375 FiO2 80% PEEP of 18.. Vital signs reviewed patient had a temp of 100.4 pulse 150 respiratory rate 36 oxygen saturation 95% on 80% on fio2 .'s labs are reviewed which patient had a d-dimer 1.84 that is increased to 14.3. Arterial Blood gas suggest ph 7.35, CO2 40, po2 62, . Her BMP suggest a sodium 135 potassium 3.7 chloride 112 bicarb 21 creatinine 1.57 for calcitonin is 3.5 CRP is increased from 8.78.2 LDH is increased to 2614. Patient remains on Pneumovax, propofol drip. Lovenox increased to 50 subcu twice a day. Patient received 2 L of IV fluids. Continue IV fluids at 100 mL/h. Bicarb drip discontinued patient initiated on Zosyn 3.375 every 8 hours. Continue insulin drip at 4 units per hour. Patient is currently in prone positioning 09/13: Patient evaluated in the ICU remains on Ventilation continues to be sedated, in prone position. Vent settings are respiratory rate 36, tidal vital 375, FiO2 70% PEEP of 18. ABG shows pO2 of 82, PCO2 of 39, pH is 7.19. Latest labs show WBC 11.1, hemoglobin 13.2, d-dimer still pending, but yesterday was up to 14.3. Creatinine up to 3.4, BUN 24 sodium 137, potassium 4.0. Patient's urine output has been low, nephrology on consult. Bicarb drip increased to 100 miles an hour, receiving another liter of normal saline, she did have a ultrasound that showed unremarkable bilateral kidneys. Repeat chest x-ray showed bilateral lung infiltrates that are stable. Anion gap has closed, will start Lantus 10 units at at bedtime Novolog every 6 hours. 09/14: Patient is seen in the ICU, still currently mechanically ventilated and sedated. She continues in the prone position. Her oxygen quickly drops if she is not in prone. Patient's kidney function has worsened. Laboratory values show creatinine of 4.87, BUN 33, LDH 2191, C-reactive protein 2.7. ABG shows pH 7.32, pO2 of 60, pCO2 43. Patient is making almost no urine overnight. Nephrology is following patient continues on cefepime for urinary tract infection, culture is still pending. Vascular has been consulted for placement of temporary hemodialysis catheter for plans for dialysis. 09/15: Patient evaluated in the ICU, continues to be mechanically ventilated and sedated on assist control ventilation rate of 36, tidal volume 375, FiO2 100% and PEEP of 18. ABG today shows pO2 58, pCO2 of 45, and pH 7.35. She continues on tube feedings. Yesterday patient underwent ultrasound-guided right internal jugular non-tunneled hemodialysis catheter placement. Patient underwent hemodialysis treatment last night and plans have another hemodialysis treatment today. She continues to make almost no urine. She continues on cefepime for antibiotic coverage, and continues on Decadron and Lovenox. 09/16: Patient seen on follow-up remains in the ICU mechanically ventilated and sedated. She continues on assist control rate of 36, tidal volume 375, FiO2 100% and PEEP of 20. PEEP had to be increased due to patient had to be in supine position for dialysis, will go back to prone position once dialysis is complete. ABG shows pH 7.32, pCO2 49, PaO2 61. Laboratory values showed WBC 11.2, hemoglobin 11, sodium 134, creatinine 4.44, BUN 38. Urine culture shows no growth, blood cultures show no growth to date. Repeat chest x-ray shows bilateral pleural effusions, correlate for ARDS, pulmonary edema, diffuse pneumonia, findings are stable from last exam. Patient does not require any pressors, blood pressure 133/57, heart rate 78. 5/16: Patient was evaluated in the ICU today for follow-up. She continues to be intubated and on mechanical ventilation. Current vent settings are tidal volume 375, FiO2 100% and PEEP of 20. ABG shows pH 7.37, pCO2 40, pO2 102. She continues with intermittent prone positioning. Patient continues to have almost no urine output, maintained on dialysis. Patient received dialysis yesterday without complication. Laboratory values revealed WBC 10.3, hemoglobin 10.4, sodium 132, potassium 3.1, BUN 33, creatinine 4.29, LDH 1913, C-reactive protein 1.3. Urine and sputum cultures are negative, blood cultures show no growth to date. Consult placed to dietary to start TPN[ ] 09/18: She remains in the intensive care unit intubated and on mechanical ventilation with tidal volume 375, FiO2 60 and PEEP of 20. Patient is being prone to daily at approximately 16 hours per day. Pulmonary medicine has added in Dr. Zhang to do PEG tube and trach today. Patient is not on vasopressors. Repeat blood work reveals WBC 12.6, hemoglobin 9.8, platelet count 212. Sodium 133, potassium 3.2, chloride 102, CO2 21, BUN 35 and creatinine 4.12. Blood sugar 126. Patient underwent hemodialysis yesterday with removal of 2 L and is scheduled again today with goal of 2-3 L and is scheduled again tomorrow. 09/19: She is scheduled for hemodialysis today and is off fentanyl temporarily. Patient is status post trach and PEG tube yesterday. And she remains on mechanical ventilation. Pulse ox 93-95%. She has been afebrile, heart rate 64, respiratory rate 36, blood pressure 115/50. Fentanyl is off to improve blood pressure for hemodialysis which is scheduled for today. Contacted vascular surgery about permanent hemodialysis catheter. Repeat blood work reveals WBC 14.3, hemoglobin 9.6, platelet count 200. D-dimer 6.48. LDH 1686. C-reactive protein 1.1. BUN 34 creatinine 3.81. Sodium 130, potassium 3.5, chloride 101, CO2 18. Blood sugars running between 101 198. Plan is to wean off Pneumovax today. Patient remains on insulin drip. Repeat chest x-ray reveals bilateral multifocal confluent opacities consistent with COVID-19. Some improved aeratio n periphery of the left lung and worsening opacities throughout the right lung. 09/20: She remains in the intensive care unit on mechanical ventilation. She has been afebrile, heart rate 65, respiratory rate 37, blood pressure 121/70, pulse ox 91-99%. Repeat blood work reveals WBC 14.5, hemoglobin 9.1, platelet count 216. D-dimer 6.13. Sodium 133, potassium 3.1, chloride 102, CO2 18, BUN 35 and creatinine 4.27. Blood sugars running between 128 and 143. LDH 1717. C- reactive protein 1.7. Patient remains on insulin drip which will be transitioned to NovoLog scale every 6 hours. Patient is scheduled for permanent hemodialysis catheter placement today with vascular surgery. Repeat chest x-ray reveals stable diffuse bilateral interstitial and airspace disease. Possible small right effusion. His work is following for transfer to [facility] facility. Do not anticipate discharge until next week. 09/21: Patient is undergoing hemodialysis. She remains on mechanical ventilation with tidal volume 375, FiO2 down to 45 and PEEP was decreased to 15. Patient is continued on propofol, fentanyl drips. She is on tube feedings at goal. Patient was taken off insulin drip yesterday and on scale only but blood sugars are running in the 200s, Levemir scheduled at bedtime will be added. Other blood work reveals WBC 13.3, hemoglobin 8.7, platelet count 192. Sodium 137, potassium 3.6, chloride 107, CO2 18, BUN 34 and creatinine 4.21. Repeat chest x-ray is stable. 09/22: She remains in the intensive care on mechanical ventilation with tidal volume 375, FiO2 of 50 and PEEP of 10. Pulse ox is running 96%. She is afebrile, heart rate in the 50s, respiratory rate 36, blood pressure 100/64. Repeat blood work reveals WBC 16.5, hemoglobin 8.9, platelet count 213. Sodium 134, potassium 3.7, chloride 103, CO2 21, BUN 34 and creatinine 3.89. Blood sugars running in the 200s to 324. Levemir increased to 16 units at bedtime and continue NovoLog scale every 6 hours. Patient is on tube feedings at goal. She has a Haley catheter in with a scant amount of dark/brown urine. Fecal management system is in place. Repeat chest x-ray reveals diffuse bilateral airspace infiltrates persist unchanged. Patient is scheduled for hemodialysis tomorrow morning on Friday. 09/23: Patient remains on mechanical ventilation with tidal volume 3.75, FiO2 50 and PEEP of 10. auto overhauler sinus rhythm. She has no urine output. Fecal management system is in place. She is undergoing dialysis at this time with plan for removal of 2-1/2 L. She has been afebrile, heart rate in the 50s, respiratory rate 36, blood pressure 108/76 and pulse ox 89%. WBC 13.6, hemoglobin 9.1, platelet count 194. Sodium 136, potassium 3.0 and was replaced, chloride 106, CO2 21, BUN 49 creatinine 5.31. Blood sugars are running between 182 and this morning 194. Patient was still in the 200s and 300s. Levemir last evening was increased to 16 units. Patient remains on propofol and fentanyl drips. Lovenox was increased to 60 mg twice daily. 09/24: PEEP was increased today to 20, tidal volume is at 375 and FiO2 of 50%. Patient has been afebrile. She has been started on levo fed. Repeat chest x- ray reveals bilateral multifocal confluent opacities consistent with Covid 19 or ARDS redemonstrated. Nephrology will plan dialysis for tomorrow for 3 L. Patient remains on propofol fentanyl and Nimbex. WBC 12.5, hemoglobin 9.8, platelet count 161. D-dimer 13.3. Sodium 132, potassium 3.4, chloride 102, CO2 20, BUN 48 and creatinine 4.67. Blood sugars extremely elevated to 96-409. LDH 2217. 09/25: Patient remains in the intensive care unit on mechanical ventilation with tidal volume 375, FiO2 50 and PEEP of 20. Patient is afebrile, heart rate 61, respiratory rate 36, blood pressure 102/56, pulse ox 97%. Repeat blood work reveals WBC 9.3, hemoglobin 8.5 and platelet count 171. Sodium 130, potassium 3.7, chloride 100, CO2 20, BUN 61 creatinine 5.65. Blood sugars have been elev ated up to 455. Levemir increased to 20 units twice daily, NovoLog 5 units every 6 hours and continue NovoLog scale. Patient is scheduled for hemodialysis today. Repeat chest x-ray reveals bilateral multifocal and confluent opacities. Decadron and Lovenox dosing change by pulmonary. Patient is off norepinephrine. 09/26: Patient remains in the intensive care unit on mechanical ventilation with tidal volume 375, FiO2 50 and PEEP of 15. She has been afebrile, heart rate 91, blood pressure 114/68, pulse ox 99%. auto overhauler sinus rhythm. 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 Sodium 134, potassium 3.6, chloride 102, CO2 22, BUN 41 creatinine 4.21. Patient has improved blood sugars this morning running 150s and 160s. Diabetic medications were adjusted yesterday. Patient is awake and alert and interacting. Yesterday, patient had PICC line inserted by interventional radiology. Repeat chest x-ray reveals diffuse airspace infiltrates in both lung ann appear to progress slightly in the interval. 09/27: Patient remains in intensive care unit on mechanical ventilation with improvement of settings with tidal volume 375, FiO2 decreased to 40 and PEEP decreased to 10. Patient is on hemodialysis every other day and plan to remove 3 L today. Patient is more awake and alert. She is slow to respond but is able to follow simple commands. Blood sugars are running between 84 and 123. Repeat blood work reveals WBC 7.1, hemoglobin 8.1, platelets 152. Sodium 135, potassium 3.6, chloride 103, CO2 21, BUN 53 and creatinine 5.88. Repeat chest x-ray revealed cardiomegaly and pulmonary edema. Patient is on tube feedings:. Patient is not require vasopressors and is off sedation. Fecal management system remains in place for brown liquid stool. C. difficile was negative. 09/28: Patient remains on mechanical ventilation with tidal volume 375, FiO2 increased to 80 and PEEP increased to 18. Patient had a rough night was very anxious, no pain. Xanax 0.25 mg 3 times daily was added. There is concern for pulmonary embolism for which patient was started on heparin drip, she is unable to undergo CAT scan. Venous Doppler bilateral lower extremities was nondiagnostic due to extensive edema in obese patient but minimal imaging of the popliteal veins does show flow. Repeat echocardiogram has been ordered. Cefepime has also been ordered at 1 g IV piggyback every 24 hours as well as vancomycin, pharmacy dosing. Patient is back on fentanyl drip, propofol drip and norepinephrine. Blood sugars are elevated and insulin Levemir will be i ncreased to 25 mg twice daily. Ferrlecit infusion has been ordered by nephrology for 4 days. Patient is undergoing hemodialysis today.temperature max 100.2, heart rate 134, respiratory rate 34, blood pressure 120/65, pulse ox 94%. auto overhauler is sinus tachycardia. Repeat blood work reveals WBC 16.9, hemoglobin 9.7, platelet count 216. D-dimer 8.81. Sodium 134, potassium 3.8, chloride 99, CO2 25, BUN 43 and creatinine 5.36. Blood sugars in the 200s. AST 40. 09/29 Patient had declined more last 48 hours require more sedation, patient is doing hemodialysis, respiratory failure is quite bit worse this time. Patient was inquired the pain is well back on fentanyl drip. Her vent set up with PEEP is limited but higher. No new finding on culture and her chest x-ray continues shows diffuse infiltrate persistent although there is a moderate interval improvement. 09/30 patient's was seen and evaluated. PEEP was reduced to 11 as patient is maintaining good saturation at the current vent settings. 10/01 patient was seen at bedside. She is currently on assist control rate of 28 white tidal volume 350 FiO2 50% and PEEP of 10 which has been reduced by pulmonary as patient name cleaning her oxygen saturation. Arm blood gas was obtained with a pH of 7.35 pCO2 37 pO2 of 63. She remains hemodynamically stable with no need for pressors. Labs were reviewed patient's BUN is 29 crea tinine 3.93 glucose 122 albumin 2.2 sodium 131 chloride 19 hemoglobin is downtrending with a Hb of 7.3 no leukocytosis 7.1. Patient's urine output is minimal at this time. Her rate has increased to 129 and is currently on positive fluid balance even with dialysis. Last dialysis was done yesterday. Continue enteral feeding currently at goal. Antibiotic has been discontinued and continues to remain on DEXA methicillin 4 mg IV daily. 10/02 patient continues to be on trach support with mechanical ventilation. Patient was evaluated by trade recruiter and was switched to VC control as patient was noted to be double stacking on and off throughout the night. Respiratory rate continue to 28 tidal volume increased to 400 with a PEEP for Dr. Downey. Patient is maintaining oxygen saturation 91% on the current setting. According to the nurse bedside patient saturation drops significantly or she is moved or her sedation is dropped. Patient is currently on propofol drip, fentanyl drip. She did underwent dialysis today and was able to maintain her low pressure without the need of pressors. Labs reviewed today suggest a WBC of 6.7 hemoglobin of 7.0 and d-dimer 3.9 bicarb 17 BUN 38 creatinine 4.8. LDH is 964. Sodium 1:30 likely secondary to volume overload. Urine sodium and urine osmolality ordered. Patient's glucose this morning is 146. Continue to remain on enteral feeding. Urine output is reduced. Fall catheter will be placed today. Continue to remain on dialysis. 10/03: Patient remains on mechanical ventilation and is back on propofol and fentanyl drips. Patient is currently on VC control with tidal volume 400, FiO2 55 and PEEP of 12. Patient still is not making any urine and is dialysis dependent with next treatment planned for tomorrow with removal of 3-3-1/2 L. PEG tube feedings are at goal. Fecal management system remains in place. At the time of evaluation, patient is off levophed. Repeat chest x-ray reveals stable diffuse bilateral airspace disease correlate for ARDS, pulmonary edema or diffuse pneumonia. Temperature max last evening was 101. Temperature currently 99, heart rate 106, respiratory rate 32, blood pressure 101/50, pulse ox 86%. Repeat blood work reveals WBC 6, hemoglobin 7.4, platelet count 160. D-dimer 4.05. Sodium 133, potassium 3.5, chloride 100, CO2 23, BUN 31 creatinine 3.8. Blood sugars are running between 100 and 170. Ferritin 1514. Liver function test normal. LDH 1016, C-reactive protein 13.6. Prognosis remains guarded. 10/04: Patient remains intubated on mechanical ventilation with tidal volume 400, FiO2 65, PEEP of 14. Patient continues to run fevers and repeat blood culture and urine and urine culture ordered for today. Haley catheter has been removed this patient has no significant urine output at about 20 mL per shift. BladderScan is monitored for greater than 300 and the patient is straight cathed. Hemoglobin is 6.8 and she has been ordered 41 unit of packed RBCs today. She is currently on propofol and fentanyl drips. She is scheduled for hemodialysis today. WBC 4.5, hemoglobin 6.8, platelet count 151. D-dimer 3.28. Sodium 132, potassium 4.1, chloride 100, CO2 22, BUN 37 creatinine 4.74. Blood sugars running between 97 and 110. Ferritin 1801. LDH 859. C-reactive protein 14.4. Chest x-ray reveals correlate for pneumonia, edema, ARDS. Prognosis remains guarded. 10/05: Patient remains in intensive care unit currently on mechanical ventilation with tidal volume 400, FiO2 was increased to 100 and PEEP is at 14. She continues to run fevers which have worsened with temperature max 103.1. She has been tachycardic in the 130s, blood pressure is marginal but not on vasopressors. Pulse ox currently 92%. Repeat blood work reveals WBC 5.5, hemoglobin 7.6, platelet count 190. D-dimer 2.7, ferritin 1770, LDH 932, C- reactive protein 21.4. Blood sugars are running between 100 1669. Electrolytes are normal. BUN 27 and creatinine 3.79. Pancultures were done yesterday including a straight cath for urine culture, sputum culture and blood culture. Arterial line was removed as well as midline. She is currently on propofol, fen tanyl and started on Nimbex today. 10/06: Patient remains in the intensive care unit. Today patient in prone position and remains on mechanical ventilation with tidal volume 350, FiO2 65 and PEEP of 14. Her last documented fever was yesterday at 2 PM. Heart rate is in the 120s, respiratory rate 32, pulse ox 88-92%. CBC is unremarkable. Electrolytes are normal. BUN 30 creatinine 2.93. Blood sugars are running between 135 and 164. Cultures from October 04: Blood culture no growth, sputum culture finalized, urine culture finalized. Catheter tip culture is in process. Repeat chest x-ray shows bilateral interstitial infiltrates. Patient is on tube feedings of Nepro at goal of 30 ML's per hour. Patient underwent dialysis yesterday and is scheduled for repeat dialysis today. 10/07: Patient maintains in the intensive care unit intubated and on mechanical ventilation. She is receiving hemodialysis this morning has been every day. Plan is to remove 2-1/2 L today. Vent settings have changed today with tidal volume 350, FiO2 was increased to 100% and PEEP remains at 14. She has been continued on Nimbex, fentanyl, norepinephrine and propofol. Plan is to prone position patient following dialysis. Repeat chest x-ray reveals worsening interstitial infiltrates. BUN is 26 and creatinine 2.59. LDH 955, C-reactive protein 22.1. Prognosis remains poor. 10/08: Patient remains in intensive care unit intubated and on mechanical ventilation with tidal volume 350, FiO2 60, PEEP of 14. She is pronating today. She is scheduled for hemodialysis on a daily basis. She has been afebrile, heart rate 112, respiratory rate 36, blood pressure 161/88, pulse ox 93%. Repeat blood work reveals WBC 9.9, hemoglobin 9.1, platelet count 320. Sodium 133, potassium 5.3, chloride 100, CO2 20, BUN 29 creatinine 2.44. Blood sugar running between 102 and 139. LDH 1026, C-reactive protein 19.7. 10/09: Patient is undergoing dialysis this morning. She continues to be intubated and on mechanical ventilation with tidal volume 350, 270 and PEEP of 14. Patient is also on propofol, Nimbex, norepinephrine and fentanyl drips. Repeat chest x-ray reveals persistent bilateral multifocal and confluent opacities consistent with Covid 19. She is afebrile, heart rate 116, respiratory rate 36, blood pressure 120/65, pulse ox 91%. Repeat blood work reveals WBC 5.4, hemoglobin 9.2, platelet count 216. D-dimer 2.67, ferritin 2568, LDH 794, C- reactive protein 13.9. Blood sugars have been running 90-104. Creatinine 1.64. She is on daily dialysis treatment. 10/10: She remains in the intensive care unit. She is now out of isolation as a repeat Covid test came back negative. She remains on mechanical ventilation with tidal volume 350, FiO2 70 and PEEP of 14. Patient is also on Nimbex, propofol, norepinephrine, fentanyl drips. She is on PEG tube feedings at goal and tolerating well. Repeat blood work reveals WBC 7.8, hemoglobin 7.5, platelet count 267. Sodium 139, potassium 3.9, chloride 109, CO2 20, BUN 20 creatinine 1.29. Blood sugars are running between 76 and 102. Scheduled Aiyana Log decreased to 3 units. Repeat chest x-ray reveals moderate cardiomegaly and continued pulmonary edema. Slight interval improvement. Patient is continued on daily hemodialysis. 10/11: Patient remains in intensive care unit on mechanical ventilation with tidal volume 325, FiO2 70, PEEP 14. She is currently being prone. She underwent hemodialysis this morning with removal of 4 L of fluid with plan to continue daily treatment. She is currently on Nimbex, fentanyl and propofol. No vasopressor at this time. Fecal management system remains in place. She is on tube feedings currently at hold due to prone positioning. Patient has been afebrile, heart rate 116, respiratory rate 36, blood pressure 100/58, pulse ox 93-96%. Repeat blood work reveals WBC 9.3, hemoglobin 8.1, platelet count 276. Sodium 136, potassium 4.3, chloride 103, CO2 20, BUN 20 creatinine 1.14. Blood sugars running between 133 and 202. 10/12: Patient remains in the intensive care unit. She is undergoing hemodialy sis this morning. She's been afebrile, heart rate in the 120s, respiratory rate 32, blood pressure 102/65. She is not on vasopressors. She is continued on Nimbex, fentanyl and propofol. Vent settings are currently tidal volume 325, FiO2 70, PEEP 14. Total platelet count 273. Sodium 133, potassium 4.7, chloride 100, CO2 19, BUN 21 creatinine 0.91. Blood sugars running between 121 and 143. 10/13: Patient remain in the ICU she is on hemodialysis daily, she is still on the vent with a PEEP of 14 and FiO2 of 70. Her oxygenation is marginal pulse rate still high. Patient had scratched cornea was seen in ophthalmology decided to keep doing eyedrops along with eye patch at this point. Prognosis still very bad this point. 10/14: She remains on mechanical ventilation with tidal volume 325, FiO2 70% and PEEP of 14. She did require label fed last evening for about 6 hours. She did not tolerate pronating yesterday. She is undergoing dialysis this morning with plan for removal of 4 L. Blood sugars have been low and IV fluids changed to D10 until blood sugars have recovered. Levemir and scheduled NovoLog discontinued. Patient is on tube feedings at goal there's been no change in th is. 10/15 patient remains on mechanical ventilation in the intensive care unit. FiO2 still at 70%, PEEP of 18. Blood sugars have improved since medications were adjusted. White blood cells 33.9, hemoglobin 8.5, sodium 135, BUN 19, creatinine 0.96. Patient to receive dialysis again today. Patient did run a low-grade fever throughout the night and pro calcitonin level is ordered. Chest x-ray showed continued diffuse bilateral airspace disease. Patient remains on tube feedings at goal. 10/16: Patient remains on mechanical ventilation with tidal volume 300, FiO2 70, PEEP of 15. Fecal management system is out. She is currently on low dose of norepinephrine. She is also on fentanyl drip, propofol drip, rocuronium drip. Heart rate is running in the 130s, sinus rhythm, blood pressure 121/63, pulse ox 95%. Patient is been afebrile. Repeat blood work reveals WBC 18.9, hemoglobin 7.5, platelet count 291. Sodium 135, potassium 4.2, chloride 101, CO2 19, BUN 25 and creatinine 1.36. Blood sugars are running between 143 and 199. Patient is on scale insulin only. Repeat chest x-ray reveals persistent bilateral multifocal and completed opacities consistent with Covid 19. 10/17: Patient remains on mechanical ventilation with tidal volume 300, FiO2 50, PEEP of 14. She is currently receiving hemodialysis. The patient is having yellow-colored drainage from the trach site. This is going to be culture today. Repeat blood work reveals WBC of 24, hemoglobin 7.3 and platelet count 310. Sodium 136, potassium 4.1, chloride 101, CO2 19, BUN 24 creatinine 1.43. Blood sugar 139. Capillary blood glucose running 147 and 189. Repeat chest x-ray is unchanged. Patient had increased respiratory rate 40s and 50s with oxygen saturation of 87 and now was increased and Seroquel added this morning. Prognosis remains guarded. 10/18: Patient remains on mechanical ventilation with tidal volume 300, FiO2 60, PEEP has been decreased to 12. Patient will need a PEEP of 8 in order to tra nsfer to long-term care. She is currently on fentanyl drip and Precedex drip. Patient is tracking when her name is stated. She seems to be slightly improved today. Patient has been afebrile, heart rate 106, respiratory rate 32, blood pressure 110/61, pulse ox 98%. Repeat blood work reveals WBC 30.3, hemoglobin 7.2, platelet count 350. Sodium 139, potassium 4.2, chloride 103, CO2 20, BUN 23 creatinine 1.79. Blood sugars are increasing running up 299. Patient will be placed on Levemir. Secretions from tracheotomy sent for culture and in process. She is currently undergoing hemodialysis. 10/23: Patient remains in the intensive care unit on mechanical ventilation with tidal volume 300, FiO2 65 and PEEP of 10. auto overhauler has been in a sinus rhythm. Patient does open her eyes and appears to be tracking. Blood sugars have been elevated. Levemir will be increased to 40 units daily and scheduled NovoLog increased to 12 units and continue NovoLog every 6 hours per scale. Patient is receiving hemodialysis today. She is not currently on vasopressors. Patient is on Precedex drip only. Antibiotics in the form of cefepime were started on October 18. Patient has been afebrile, heart rate 126, respiratory rate 36, blood pressure 163/105. Pulse ox 91%. Repeat blood work reveals WBC 16.0, hemoglobin 7.2, platelet count 208. Electrolytes are within normal limits. BUN 62 and creatinine 2.43. Blood sugars running between 259-321. Most recent blood culture from [facility] is no growth at 24 hours. Repeat chest x-ray reveals cardiomegaly and persistent bilateral pulmonary edema. 10/24: Patient is awake, eyes are open and tracking, she is able to follow simple commands. Severe generalized weakness noted. Precedex gtt has been discontinued. Patient is receiving hemodialysis. Her blood sugars have remained elevated for which Levemir increased to 25 units twice daily along with 15 units of NovoLog every 6 hours along with scale. Tidal volume 330, FiO2 60, PEEP of 8. annual campaign manager and social worker delinquency prevention following closely. Anticipate possible discharge by the end of next week to long-term care facility. REVIEW OF SYSTEMS Unable to obtain due to mechanical ventilation. PHYSICAL EXAMINATION Gen: This is is a 35-year-old black female, patient is on mechanical ventilation, appears to be comfortable. HEENT: Head is atraumatic, normocephalic. Pupils equal, round. Sclerae is anicteric. Eyes are open and tracking. Tracheostomy midline. NECK: Supple. No JVD. No lymphadenopathy. No thyromegaly. LUNGS: Lung sounds are diminished at the bases but otherwise clear to auscultation. No intercostal retractions. HEART: Regular rate and rhythm. No murmur. auto overhauler sinus tachycardia. ABDOMEN: Soft. Bowel sounds are present. No masses. No tenderness. EXTREMITIES: Trace bilateral pedal edema. No calf tenderness. NEUROLOGICAL: Patient is able to follow simple commands, significant weakness. ASSESSMENT AND PLAN 1. Acute hypoxic respiratory failure secondary to Covid 19 pneumonia and possible bacterial pneumonia. Patient was intubated on September 11. She is status post 1 dose of Remdesivir and 1 dose of Tocilizumab. Continue Ventolin inhaler 4 times daily, Lovenox 30 mg subcu daily, supplements. Status post PEG tube and trach. Continue cefepime. 2. Acute diabetic ketoacidosis secondary to Covid 19 pneumonia, uncontrolled with hyperglycemia. Levemir increased to 40 units and scheduled NovoLog increased to 12 units every 6 hours and continue NovoLog scale every 6 hours. 3. Metabolic encephalopathy secondary to Covid 19 and DKA. 4. Sepsis and septic shock secondary to Covid 19 pneumonia with multiorgan failure. Continue as in #1. Trach drainage cultured. 5. Acute metabolic acidosis secondary to acute DKA, Covid 19 and acute kidney injury. Renvela 1600 mg 3 times daily.. 6. Diabetes mellitus type 2 uncontrolled with A1c 13.6. Continue as above. 7. Hypophosphatemia status post replacement. 8. Hyperkalemia secondary to DKA, resolved. 9. Sinus tachycardia secondary to sepsis, volume deficiency. 10. Acute kidney injury secondary to ATN secondary to Covid 19 and DKA. Continue daily hemodialysis. Permanent dialysis catheter placed. 11. Possible acute gram-negative pneumonia versus MRSA pneumonia. Completed course of antibiotics. 12. Hypertension. 13. Morbid obesity with BMI of 53. 14. DVT prophylaxis. Lovenox. 15. GI prophylaxis. Protonix 40 mg IV push daily. CODE STATUS: Full code Prognosis guarded. DISCHARGE PLAN Care Home Acute Care Impression and plan of care have been directed as dictated by the signing physician. Kimberly Boswell nurse practitioner acting as scribe for signing alexandra barrosian. Objective - Vital Signs Vital signs: Vital Signs Temp 100.1 F H 10/24/20 08:00 Pulse 126 H 10/24/20 09:00 Resp 33 H 10/24/20 09:00 BP 145/87 10/24/20 09:00 Pulse Ox 97 10/24/20 09:00 Intake & Output 10/23/20 10/24/20 10/24/20 18:59 06:59 18:59 Intake Total 1213.530 979.680 333.32 Output Total 4000 0 1100 Balance -2786.470 979.680 -766.68 Weight 108 kg 104.9 kg Intake: IV 210 120 30 Cefepime 1 gm In Sodium 100 Chloride 0.9% 50 ml @ 12. 5 mls/hr IVPB Q24H [facility] Rx #:[id number] Sodium Chloride 0.9% 500 110 120 30 ml 500 ml @ 10 mls/hr IV .Q24H [facility] Rx#:[id number] Intake, IV Titration 91.530 97.680 2.32 Amount Dexmedetomidine/0.9% NaCl 91.530 (Pmx) 400 mcg In Empty Bag 1 bag @ Titrate IV . Q0M [facility] Rx#:[id number] Dexmedetomidine/0.9% NaCl 97.680 2.32 (Pmx) 400 mcg In Empty Bag 1 bag @ Titrate IV . Q0M [facility] Rx#:[id number] Tube Feeding 672 672 171 Other 240 90 130 Output: Urine 0 0 0 Stool 1100 Hemodialysis 4000 Other: Voiding Method Incontinent Incontinent Incontinent ABP, PAP, CO, CI - Last Documented Arterial Blood Pressure 136/76 - Labs CBC & Chem 7: 10/24/20 03:00 10/24/20 03:00 Labs: Abnormal Lab Results - Last 24 Hours (Table) 10/23/20 10/23/20 10/23/20 Range/Units 11:24 17:27 23:57 WBC (3.8-10.6) k/uL RBC (3.80-5.40) m/uL Hgb (11.4-16.0) gm/dL Hct (34.0-46.0) % MCHC (31.0-37.0) g/dL RDW (11.5-15.5) % Neutrophils # (1.3-7.7) k/uL Lymphocytes # (1.0-4.8) k/uL ABG pH (7.35-7.45) ABG pCO2 (35-45) mmHg ABG pO2 (83-108) mmHg ABG HCO3 (21-25) mmol/L ABG Total CO2 (19-24) mmol/L ABG O2 Saturation (94-97) % Sodium (137-145) mmol/L BUN (7-17) mg/dL Creatinine (0.52-1.04) mg/dL Glucose (74-99) mg/dL POC Glucose (mg/dL) 327 H 278 H 242 H (75-99) mg/dL 10/24/20 10/24/20 10/24/20 Range/Units 03:00 03:00 05:53 WBC 11.0 H (3.8-10.6) k/uL RBC 2.69 L (3.80-5.40) m/uL Hgb 7.6 L (11.4-16.0) gm/dL Hct 25.0 L (34.0-46.0) % MCHC 30.4 L (31.0-37.0) g/dL RDW 17.9 H (11.5-15.5) % Neutrophils # 9.0 H (1.3-7.7) k/uL Lymphocytes # 0.9 L (1.0-4.8) k/uL ABG pH (7.35-7.45) ABG pCO2 (35-45) mmHg ABG pO2 (83-108) mmHg ABG HCO3 (21-25) mmol/L ABG Total CO2 (19-24) mmol/L ABG O2 Saturation (94-97) % Sodium 136 L (137-145) mmol/L BUN 54 H (7-17) mg/dL Creatinine 2.01 H (0.52-1.04) mg/dL Glucose 242 H (74-99) mg/dL POC Glucose (mg/dL) 260 H (75-99) mg/dL 10/24/20 Range/Units 06:05 WBC (3.8-10.6) k/uL RBC (3.80-5.40) m/uL Hgb (11.4-16.0) gm/dL Hct (34.0-46.0) % MCHC (31.0-37.0) g/dL RDW (11.5-15.5) % Neutrophils # (1.3-7.7) k/uL Lymphocytes # (1.0-4.8) k/uL ABG pH 7.33 L (7.35-7.45) ABG pCO2 54 H (35-45) mmHg ABG pO2 66 L (83-108) mmHg ABG HCO3 28 H (21-25) mmol/L ABG Total CO2 30 H (19-24) mmol/L ABG O2 Saturation 91.6 L (94-97) % Sodium (137-145) mmol/L BUN (7-17) mg/dL Creatinine (0.52-1.04) mg/dL Glucose (74-99) mg/dL POC Glucose (mg/dL) (75-99) mg/dL Microbiology - Last 24 Hours (Table) 10/22/20 20:55 Gram Stain - Preliminary Sputum Sputum Culture - Preliminary Gram Neg Bacilli 10/22/20 09:36 Blood Culture - Preliminary Blood No Growth after 24 hours
[2020-10-24 17:47] LABS: Glucose,Whole Blood 191 mg/dL (75-99)
[2020-10-24] MEDS: INSULIN DETEMIR (LEVEMIR) 100 UNIT/ML SYR SQ SCH (20:40)
[2020-10-24 23:37] LABS: Glucose,Whole Blood 172 mg/dL (75-99)
[2020-10-25] MEDS: HYDROmorphone 0.5 MG/0.5 ML SYRINGE IVP PRN ×3 (00:28→21:07)
[2020-10-25 04:16] LABS: Albumin 2.4 g/dL (3.5-5.0); Potassium 4.1 mmol/L (3.5-5.1); Total Bilirubin 0.2 mg/dL (0.2-1.3); Total Protein 4.9 g/dL (6.3-8.2)
[2020-10-25 04:46] LABS: Anisocytosis Slight; Basophils % (A) 0 %; Eosinophils # (A) 0.3 k/uL (0-0.7); Eosinophils % (A) 3 %; HCT 20.9 % (34.0-46.0); Hypochromasia Marked; Lymphocytes # (A) 1.2 k/uL (1.0-4.8); Lymphocytes % (A) 10 %; MCH 27.3 pg (25.0-35.0); MCHC 30.2 g/dL (31.0-37.0); MCV 90.4 fL (80.0-100.0); Mean Platelet Volume 9.8; Monocytes # (A) 0.6 k/uL (0-1.0); Monocytes % (A) 5 %; Neutrophils # (A) 9.9 k/uL (1.3-7.7); Neutrophils % (A) 81 %; Platelet Count 196 k/uL (150-450); Poikilocytosis Slight; RBC 2.31 m/uL (3.80-5.40); RDW 17.8 % (11.5-15.5); WBC 12.2 k/uL (3.8-10.6)
[2020-10-25 05:11] LABS: HGB 6.3 gm/dL (11.4-16.0)
[2020-10-25] MEDS: INSULIN ASPART (NovoLOG) 100 UNIT/ML VIAL SQ SCH ×8 (06:14→23:53)
[2020-10-25] MEDS: SEVELAMER 800 MG TAB PO SCH ×4 (06:31→23:53)
--- NOTE | 2020-10-25 08:05 | XR ---
EXAMINATION TYPE: XR chest 1V portable DATE OF EXAM: 10/25/2020 COMPARISON: 10/23/2020 INDICATION: Assess lungs TECHNIQUE: Single frontal view of the chest is obtained. Patient is rotated to the right FINDINGS: Tracheostomy tube is in the midline. Double-lumen catheters on the right with tips in superior vena c parish region. Right PICC line has its tip within the superior vena cava region The heart size is prominent. The pulmonary vasculature is prominent. Diffuse markings are present. There is some silhouetting of the left diaphragm. Findings can be alfonso tible with congestive heart failure. IMPRESSION: 1. Findings which can be compatible with congestive failure. 2. Findings appear stable from comparison. 3. Lines and catheters discussed above
[2020-10-25] MEDS: ALBUTEROL HFA INHALER INHALATION SCH ×4 (08:11→21:20)
[2020-10-25] MEDS: DILTIAZEM ORAL 60 MG TAB PO SCH ×3 (08:37→20:49)
[2020-10-25] MEDS: ENOXAPARIN 30 MG/0.3 ML SYRINGE SQ SCH (08:37)
[2020-10-25] MEDS: INSULIN DETEMIR (LEVEMIR) 100 UNIT/ML SYR SQ SCH ×2 (08:37→20:49)
[2020-10-25] MEDS: CHLORHEXIDINE GLUCONATE 15 ML CUP MUCOUS MEM SCH ×2 (08:37→20:49)
[2020-10-25] MEDS: CHOLECALCIFEROL 25 MCG (1000 IU) TABLET PO SCH (08:37)
[2020-10-25] MEDS: ASCORBIC ACID 500 MG TAB PO SCH ×2 (08:37→20:49)
[2020-10-25] MEDS: PANTOPRAZOLE 40 MG/10 ML VIAL IVP SCH (08:38)
[2020-10-25] MEDS: QUEtiapine 100 MG TAB PO SCH ×2 (08:38→20:49)
--- NOTE | 2020-10-25 08:40 | P.PN ---
Subjective Patient is seen in follow-up for acute kidney injury. Oliguric. Status post tracheostomy and PEG tube placement this admission. Receiving tube feeding. Currently on 60% FiO2. Hemoglobin 6.3 today. No active bleeding. Vital signs: Stable. General: The patient appeared well nourished and normally developed. HEENT: Tracheostomy noted. LUNGS: Breath sounds decreased. HEART: Regular rate and rhythm. Abdomen: Soft, no distention. EXTREMITITES: 1+ edema. Objective - Vital Signs Vital signs: Vital Signs Temp 99.4 F 10/25/20 04:00 Pulse 128 H 10/25/20 07:00 Resp 31 H 10/25/20 07:00 BP 147/85 10/25/20 07:00 Pulse Ox 96 10/25/20 07:00 Intake & Output 10/24/20 10/25/20 10/25/20 18:59 06:59 18:59 Intake Total 1134.32 882 66 Output Total 4000 Balance -2865.68 882 66 Weight 100.4 kg Intake: IV 170 120 10 Cefepime 1 gm In Sodium 50 Chloride 0.9% 50 ml @ 12. 5 mls/hr IVPB Q24H [facility] Rx #:[id number] Sodium Chloride 0.9% 500 120 120 10 ml 500 ml @ 10 mls/hr IV .Q24H [facility] Rx#:[id number] Intake, IV Titration 2.32 Amount Dexmedetomidine/0.9% NaCl 2.32 (Pmx) 400 mcg In Empty Bag 1 bag @ Titrate IV . Q0M [facility] Rx#:[id number] Tube Feeding 672 672 56 Other 290 90 Output: Urine 0 Hemodialysis 4000 Other: Voiding Method Incontinent Incontinent ABP, PAP, CO, CI - Last Documented Arterial Blood Pressure 136/76 - Labs CBC & Chem 7: 10/25/20 04:25 10/25/20 03:45 Labs: Abnormal Lab Results - Last 24 Hours (Table) 10/24/20 10/24/20 10/24/20 Range/Units 11:37 17:45 23:33 WBC (3.8-10.6) k/uL RBC (3.80-5.40) m/uL Hgb (11.4-16.0) gm/dL Hct (34.0-46.0) % MCHC (31.0-37.0) g/dL RDW (11.5-15.5) % Neutrophils # (1.3-7.7) k/uL Sodium (137-145) mmol/L BUN (7-17) mg/dL Creatinine (0.52-1.04) mg/dL Glucose (74-99) mg/dL POC Glucose (mg/dL) 182 H 191 H 172 H (75-99) mg/dL Total Protein (6.3-8.2) g/dL Albumin (3.5-5.0) g/dL 10/25/20 10/25/20 Range/Units 03:45 04:25 WBC 12.2 H (3.8-10.6) k/uL RBC 2.31 L (3.80-5.40) m/uL Hgb 6.3 L* (11.4-16.0) gm/dL Hct 20.9 L (34.0-46.0) % MCHC 30.2 L (31.0-37.0) g/dL RDW 17.8 H (11.5-15.5) % Neutrophils # 9.9 H (1.3-7.7) k/uL Sodium 135 L (137-145) mmol/L BUN 48 H (7-17) mg/dL Creatinine 1.99 H (0.52-1.04) mg/dL Glucose 120 H (74-99) mg/dL POC Glucose (mg/dL) (75-99) mg/dL Total Protein 4.9 L (6.3-8.2) g/dL Albumin 2.4 L (3.5-5.0) g/dL Microbiology - Last 24 Hours (Table) 10/22/20 09:36 Blood Culture - Preliminary Blood No Growth after 48 hours 10/22/20 20:55 Gram Stain - Preliminary Sputum Sputum Culture - Preliminary Gram Neg Bacilli Assessment and Plan Plan: Assessment: 1. Acute kidney injury secondary to ATN secondary to COVID-19 and DKA. Baseline creatinine is near 1. Started on hemodialysis on September 14. Has p-cath. Oliguric. No hydronephrosis noted on kidney ultrasound. 2. DKA s/p insulin drip and IV fluids. 3. Acute hypoxic respiratory failure secondary to COVID-19 pneumonia. Status post tracheostomy this admission. 4. Metabolic acidosis secondary to acute kidney injury and DKA s/p bicarb drip. Improved postdialysis. 5. Hyponatremia, hypervolemic. Stable. 6. Hyperphosphatemia secondary to acute kidney injury. Maintained on Renvela. 7. Anemia of chronic illness and kidney disease. Maintained on Aranesp. Iron deficiency noted - s/p iv iron. Hemoglobin 6.3 today. 8. Fluid overload. Improving with daily ultrafiltration. Plan: Continue with daily dialysis. Blood transfusion with dialysis today. Maintain tube feeds. Avoid nephrotoxins. Continue to monitor renal function and urine output. Monitor for renal recovery. Wean FiO2.
[2020-10-25] MEDS: SODIUM CHLORIDE 0.9% 500 ML 500 ML IV SCH (10:59)
[2020-10-25] MEDS: DARBEPOETIN ALFA 40 MCG/0.4 ML SYRINGE SQ SCH (11:05)
[2020-10-25] MEDS: NYSTATIN 100,000 UNIT/ML SUSP 500,000 UNIT/5 ML CUP PO SCH ×3 (11:05→23:52)
[2020-10-25 11:19] LABS: Glucose,Whole Blood 243 mg/dL (75-99)
--- NOTE | 2020-10-25 12:37 | P.PN ---
Subjective Progress Note Date: 10/25/20 Principal diagnosis: Acute hypoxic respiratory failure secondary to COVID-19 pneumonia and ARDS secondary to COVID-19 pneumonia 10/22/2020, I'm seeing the patient for a follow-up. This morning, she is on a Precedex drip at 0.6 micrograms per kilogram per hour.she is awake. She communicates well. She is barely able to move her fingers and toes pH is unable to raise them against gravity. She has profound weakness. Also, the patient is still on mechanical ventilator. She assist-control mode rate of 32 with a tidal volume of 300 and FiO2 of 60% with a PEEP of 10. Blood gases from today showed a pH of 7.38 with a pCO2 of 48 and pO2 of 65. The chest x-ray from today shows no significant interval change in the patient that she is back to Diffuse bilateral pulmonary infiltrates unchanged from yesterday's evaluation. There is some cardiomegaly. No significant orotracheal secretions. On examination she has some scattered rhonchi. Her previous sputum culture was positive for Acinetobacter and the patient is currently on IV cefepime. Her white cell count has dropped in the morning white cell count today is at 13.3. Nevertheless, overnight, the patient had spikes of temperature with a T-max of 11.3. Repeat cultures will be done accordingly. The patient is currently off steroids. The patient's is slightly tachycardic and we have started on oral Cardizem for rate control. She is in sinus tachycardia. She is also slightly tachypneic. She is uncertain 400 mg by mouth twice a day. No other significant events overnight. He is tolerating her enteral feeding for nutritional support. Her last bout of dialysis was yesterday. Her volume status is improved considerably.She is post prolonged respiratory failure due to COVID-19 related ARDS/pneumonia.the blood sugars are slightly elevated. he is currently off Decadron and increased the Levemir dose for a tighter blood sugar control.I made an adjustment and increase her Levemir insulin up to 30 units once a day along with a slight scale coverage. Patient was reevaluated today on 10/23/2020, patient remains in ICU remains intubated and mechanically ventilated. Patient is on volume control plus rate of 300,And I increased the volume up to 350. She is on rate of 32FiO2 was increased to 65% PEEP remains at 10 EGD this morning showed a pO2 of 60 pCO2 of 50 pH of 7.32. Patient is off all narcotics and paralytics, she is however on Precedex at 0.4 mcg/kg/m. She is still receiving tube feeding via PEG tube. She is on vital AF at 56 mL/hour. Patient did not receive hemodialysis yesterday, however she is scheduled to have hemodialysis today. Remains tachycardic, but hemodynamically stable not requiring pressors at this point. Patient is on Cardizem to control her sinus tachycardia. Chest x-ray continues to show evidence of bilateral interstitial infiltrates secondary to ARDS and s uspect some component of fluid overload secondary to renal failure. No dialysis was done yesterday. Her peak airway pressure is 30 . WBC count is 16 hemoglobin is 7.2 platelets are 2086 metabolic profile is normal except BUN of 62 creatinine 2.43. Blood sugar is 327 remains on cefepime at 1 g every 24 hours. Patient is also on Lovenox at 30 mg subcu daily. She is also on Seroquel at 100 twice a day. Protonix 40 mg IV push daily. Patient was reevaluated today on 10/24/2020, remains in the ICU, intubated and mechanically ventilated. Patient is on assist control rate of 3 to tidal volume of 350 and I increased that up to 375 patient had a bit of a cough leak. She is on 60% FiO2 and PEEP is at 10 and I cut it down to 8. Last ABG this morning on 60% showed a pO2 of 66 pCO2 of 54 pH of 7.33. Patient remains on hemodialysis, yesterday she had 4 L off. Last night she had an episode of nonsustained ventricular tachycardia without any symptoms. She had a relatively normal labs. Patient remains on tube feeding using vital AF, at goal 56 mL per hour. On the ventilator, patient seems to be a bit tachypneic, her peak airway pressure is 30 5O pressure is 24. Chest x-ray continues to show bilateral interstitial infiltrates. CBC today is relatively normal hemoglobin is 7.6. Basic metabolic profile is normal. BUN is 54 creatinine 2.01 Reevaluated today on 10/25/2020, remains intubated and mechanically ventilated. Patient is now on assist control rate of 32. FiO2 of 55% but I increased it up to 60%. PEEP is at 8 and remains at 8. The volume is 375. No ABG done today, patient is about to receive hemodialysis today. She had 4 L of fluids removed by hemodialysis yesterday. Patient is to receive 1 unit of packed RBCs today for a hemoglobin of 6.3. This will be given during her hemodialysis today. Chest x-ray is showing worsening bilateral interstitial edema and possibly underlying ARDS. Patient remains on enteral feeding using vital AF at 56 mL per hour. Patient remained generally weak, and obviously she has severe critical illness polyneuropathy and polymyopathy. All labs were reviewed today. Again she has WBC of 12.2 hemoglobin 6.3 electrolytes are normal BUN is 48 creatinine is 1.99. Sputum from 10/30 showing gram-negative bacilli, previously she had a Citrobacter, and she remains on cefepime. Objective - Vital Signs Vital signs: Vital Signs Temp 99.4 F 10/25/20 08:00 Pulse 126 H 10/25/20 10:00 Resp 31 H 10/25/20 10:00 BP 157/79 10/25/20 10:00 Pulse Ox 91 L 10/25/20 10:00 Intake & Output 10/24/20 10/25/20 10/25/20 18:59 06:59 18:59 Intake Total 1134.32 882 394 Output Total 4000 Balance -2865.68 882 394 Weight 100.4 kg Intake: IV 170 120 40 Cefepime 1 gm In Sodium 50 Chloride 0.9% 50 ml @ 12. 5 mls/hr IVPB Q24H [facility] Rx #:[id number] Sodium Chloride 0.9% 500 120 120 40 ml 500 ml @ 10 mls/hr IV .Q24H [facility] Rx#:[id number] Intake, IV Titration 2.32 Amount Dexmedetomidine/0.9% NaCl 2.32 (Pmx) 400 mcg In Empty Bag 1 bag @ Titrate IV . Q0M [facility] Rx#:[id number] Tube Feeding 672 672 224 Other 290 90 130 Output: Urine 0 Hemodialysis 4000 Other: Voiding Method Incontinent Incontinent ABP, PAP, CO, CI - Last Documented Arterial Blood Pressure 136/76 - Exam GENERAL EXAM: Revealed a 35-year-old female, obese, on mechanical ventilation, profoundly weak, awake, follows simple instructions HEAD: Normocephalic/atraumatic. Tracheostomy is intact. Minimal cuff leak is noted. EENT: PERRLA, EOMI, nonicteric, no neck masses, no JVD, CHEST: No chest wall deformity. Symmetrical expansion. LUNGS: Fine crackles at the bases no rhonchi and no wheezes. CVS: normal S1 and S2, no S3 gallop, no murmur. ABDOMEN: Obese soft nontender no megaly no rebound no guarding. PEG tube is intact. EXTREMITIES: No clubbing, 1+ bipedal edema, no cyanosis, 2+ pulses and upper and lower extremities. Psychiatric: Arousable, slightly anxious. follows simple instructions. Remains extremely weak SKIN: No rashes CENTRAL NERVOUS SYSTEM: Extreme and profound weakness noted bilaterally. This is related to critical illness polyneuropathy. Patient is otherwise alert, follows simple instructions - Labs CBC & Chem 7: 10/25/20 04:25 10/25/20 03:45 Labs: Abnormal Lab Results - Last 24 Hours (Table) 10/24/20 10/24/20 10/25/20 Range/Units 17:45 23:33 03:45 WBC (3.8-10.6) k/uL RBC (3.80-5.40) m/uL Hgb (11.4-16.0) gm/dL Hct (34.0-46.0) % MCHC (31.0-37.0) g/dL RDW (11.5-15.5) % Neutrophils # (1.3-7.7) k/uL Sodium 135 L (137-145) mmol/L BUN 48 H (7-17) mg/dL Creatinine 1.99 H (0.52-1.04) mg/dL Glucose 120 H (74-99) mg/dL POC Glucose (mg/dL) 191 H 172 H (75-99) mg/dL Total Protein 4.9 L (6.3-8.2) g/dL Albumin 2.4 L (3.5-5.0) g/dL Crossmatch 10/25/20 10/25/20 10/25/20 Range/Units 04:25 10:53 10:58 WBC 12.2 H (3.8-10.6) k/uL RBC 2.31 L (3.80-5.40) m/uL Hgb 6.3 L* (11.4-16.0) gm/dL Hct 20.9 L (34.0-46.0) % MCHC 30.2 L (31.0-37.0) g/dL RDW 17.8 H (11.5-15.5) % Neutrophils # 9.9 H (1.3-7.7) k/uL Sodium (137-145) mmol/L BUN (7-17) mg/dL Creatinine (0.52-1.04) mg/dL Glucose (74-99) mg/dL POC Glucose (mg/dL) 243 H (75-99) mg/dL Total Protein (6.3-8.2) g/dL Albumin (3.5-5.0) g/dL Crossmatch See Detail Microbiology - Last 24 Hours (Table) 10/22/20 09:36 Blood Culture - Preliminary Blood No Growth after 72 hours 10/22/20 20:55 Gram Stain - Preliminary Sputum Sputum Culture - Preliminary Gram Neg Bacilli Assessment and Plan Assessment: Impression: Acute hypoxic respiratory failure secondary to COVID-19 pneumonia and ARDS secondary to COVID-19 pneumonia, patient was transferred to the ICU on 09/11, intubated on 09/11, received REM on 09/11, received T OCI on 09/11, tracheostomy and PEG tube placement on 09/18 remains on mechanical ventilation with volume control plus mode , she is presently on the 55 percent FiO2 and PEEP of 8 Assist control rate of 32, patient is on volume control plus with tidal volume of 375, FiO2 increased to 60% Acute kidney injury with complete shutdown of urine output/anuria, requiring hemodialysis. Remains on hemodialysis Acute diabetic ketoacidosis and COVID-19 pneumonia on her initial presentation. Sepsis secondary to COVID-19 pneumonia Type 2 diabetes poorly controlled. Hemoglobin A1c of 13.6. Elevated inflammatory markers secondary to acute COVID-19 pneumonia History of hypertension. Generalized anxiety disorder. Morbid obesity BMI of 54.2. Status post tracheostomy and PEG tube placement on 09/18. Corneal injury, punctate keratitis left eye. Acinetobacter in sputum, patient remains on cefepime. Critical illness polyneuropathy and myopathy Episodic fever, presently under control. Nonsustained ventricular tachycardia. Recommendation: Continue ventilatory support. FiO2 to 60% and PEEP down to 8 increased volume to 375. rate 32 Continue physical therapy. Continue insulin and adjust dose accordingly. Continue Seroquel. Continue cefepime for Acinetobacter infection. Further sputum cultures are pending so far showing gram-negative bacilli. Continue dialysis as per nephrology on the case. Continue Lovenox 30 mg subcu daily Continue nutritional support. Enteral feeding via PEG tube. Continue GI and DVT prophylaxis. Transfusions with 1 unit of packed RBCs today. Prognosis remains guarded and the patient is critical. Patient is not quite ready to be transferred to long-term acute care, Critical care time is over 30 minutes Time with Patient: Greater than 30
--- NOTE | 2020-10-25 13:26 | P.PN ---
<Paloma Chester - Last Filed: 10/25/20 13:25> Subjective Progress Note Date: 10/25/20 CHIEF COMPLAINT: COVID-19 pneumonia HISTORY OF PRESENT ILLNESS: Patient is in the ICU for COVID-19 pneumonia and respiratory failure. She is status post tracheostomy and PEG tube placement with Dr. Hollis. Patient is tolerating tube feedings. Patient's to feedings are at 56 mL per hour. Patient remains on mechanical ventilation. She is off the sedation. She has been getting daily hemodialysis. Patient is awake and responding to simple commands. Patient has had no further signs of tracheostomy leak. Afebrile. WBC 12.2 hemoglobin 6.3. Patient is being transfused with 1 unit of blood Patient seen and examined with Dr. hollis PHYSICAL EXAM: VITAL SIGNS: Reviewed. GENERAL: Well-developed in no acute distress. HEENT: No sclera icterus. Extraocular movements grossly intact. Moist buccal mucosa. Head is atraumatic, normocephalic. No drainage from a tracheostomy at this time ABDOMEN: Soft. Nondistended. Nontender. PEG tube site clean dry and intact NEUROLOGIC: Awake and opens eyes ASSESSMENT: 1. Acute hypoxic respiratory failure with prolonged mechanical ventilation due to COVID-19 pneumonia status post tracheostomy placement 2. Severe protein calorie malnutrition status post PEG tube placement PLAN: -Continue tube feedings -Continue supportive care -Continue ICU management -Continue trach care and monitor for tracheostomy leak Physician Fire Engine Operator note has been reviewed by physician. Signing provider agrees with the documented findings, assessment, and plan of care. Objective - Vital Signs Vital signs: Vital Signs Temp 98.0 F 10/25/20 12:00 Pulse 128 H 10/25/20 13:00 Resp 32 H 10/25/20 13:00 BP 152/89 10/25/20 13:00 Pulse Ox 96 10/25/20 13:00 Intake & Output 10/24/20 10/25/20 10/25/20 18:59 06:59 18:59 Intake Total 1134.32 882 592 Output Total 4000 Balance -2865.68 882 592 Weight 100.4 kg 100.4 kg Intake: IV 170 120 40 Cefepime 1 gm In Sodium 50 Chloride 0.9% 50 ml @ 12. 5 mls/hr IVPB Q24H [facility] Rx #:[id number] Sodium Chloride 0.9% 500 120 120 40 ml 500 ml @ 10 mls/hr IV .Q24H [facility] Rx#:[id number] Intake, IV Titration 2.32 Amount Dexmedetomidine/0.9% NaCl 2.32 (Pmx) 400 mcg In Empty Bag 1 bag @ Titrate IV . Q0M [facility] Rx#:[id number] Tube Feeding 672 672 392 Other 290 90 160 Output: Urine 0 Hemodialysis 4000 Other: Voiding Method Incontinent Incontinent ABP, PAP, CO, CI - Last Documented Arterial Blood Pressure 136/76 - Labs CBC & Chem 7: 10/25/20 04:25 10/25/20 03:45 Labs: Abnormal Lab Results - Last 24 Hours (Table) 10/24/20 10/24/20 10/25/20 Range/Units 17:45 23:33 03:45 WBC (3.8-10.6) k/uL RBC (3.80-5.40) m/uL Hgb (11.4-16.0) gm/dL Hct (34.0-46.0) % MCHC (31.0-37.0) g/dL RDW (11.5-15.5) % Neutrophils # (1.3-7.7) k/uL Sodium 135 L (137-145) mmol/L BUN 48 H (7-17) mg/dL Creatinine 1.99 H (0.52-1.04) mg/dL Glucose 120 H (74-99) mg/dL POC Glucose (mg/dL) 191 H 172 H (75-99) mg/dL Total Protein 4.9 L (6.3-8.2) g/dL Albumin 2.4 L (3.5-5.0) g/dL Crossmatch 10/25/20 10/25/20 10/25/20 Range/Units 04:25 10:53 10:58 WBC 12.2 H (3.8-10.6) k/uL RBC 2.31 L (3.80-5.40) m/uL Hgb 6.3 L* (11.4-16.0) gm/dL Hct 20.9 L (34.0-46.0) % MCHC 30.2 L (31.0-37.0) g/dL RDW 17.8 H (11.5-15.5) % Neutrophils # 9.9 H (1.3-7.7) k/uL Sodium (137-145) mmol/L BUN (7-17) mg/dL Creatinine (0.52-1.04) mg/dL Glucose (74-99) mg/dL POC Glucose (mg/dL) 243 H (75-99) mg/dL Total Protein (6.3-8.2) g/dL Albumin (3.5-5.0) g/dL Crossmatch See Detail Microbiology - Last 24 Hours (Table) 10/22/20 09:36 Blood Culture - Preliminary Blood No Growth after 72 hours 10/22/20 20:55 Gram Stain - Preliminary Sputum Sputum Culture - Preliminary Gram Neg Bacilli <Brii Sánchez - Last Filed: 01/12/21 11:28> Subjective CHIEF COMPLAINT: Ventral dependent respiratory failure HISTORY OF PRESENT ILLNESS: The patient is a 35-year-old female with coronavirus pneumonia, ventilator dependent respiratory failure and tracheostomy and gastrostomy tube placement. She is on dialysis. Multiple co-morbidities due to complication from COVID infection. She is pending placement to [facility] care pending stability. She is tolerating tube feeds. ROS: No new chest pain. Morbidly obese, BMI over 45.0. She has intermittent fevers. PHYSICAL EXAM: VITAL SIGNS: Reviewed CONSTITUTIONAL: Well developed and in no acute distress. EYES: Conjuctivae without sclera icterus. Extraocular movements grossly intact. HEAD, EARS, NOSE, THROAT: Moist buccal mucosa. Head is atraumatic, normocephalic. NECK: Tracheostomy intact RESPIRATORY: Non-labored respirations and equal bilateral excursions. CARDIOVASCULAR: Palpable 2+ radial pulses. ABDOMEN: Gastrostomy tube intact MUSCULOSKELETAL: No gross deformity of the lower extremities noted. No clubbing. No cyanosis. SKIN: Good skin turgor. Well perfused. NEUROLOGIC: Cranial nerves II through XII grossly intact. No focal or lateralizing signs. PSYCH: CLINICAL LABS: Reviewed. WBC over 12,000. ASSESSMENT: 1. Coronavirus pneumonia 2. Ventilatory-dependent respiratory failure 3. Status post tracheostomy for prolonged intubation 4. Status post gastrostomy for inadequate protein malnutrition 5. Morbid obesity due to excess calories, BMI 47.5 6. Anemia status post blood transfusion 7. Sepsis 8. Acute renal failure and hemodialysis 9. Poorly controlled diabetes, hyperglycemia PLAN: 1. At this time, patient is still clinically unstable for transfer to [facility] due to sepsis. 2. Continue nutritional support Objective - Vital Signs Vital signs: Vital Signs Temp 97.6 F 11/17/20 02:00 Pulse 105 H 11/17/20 02:00 Resp 20 11/17/20 08:40 BP 137/85 11/17/20 02:00 Pulse Ox 92 L 11/17/20 08:18 ABP, PAP, CO, CI - Last Documented Arterial Blood Pressure 136/76 - Labs CBC & Chem 7: 11/17/20 05:35 11/17/20 05:35 Assessment and Plan (1) Respiratory failure requiring intubation Status: Acute Code(s): J96.90 - RESPIRATORY FAILURE, UNSP, UNSP W HYPOXIA OR HYPERCAPNIA SNOMED Code(s): 351746518 (2) Morbid obesity due to excess calories Status: Acute Code(s): E66.01 - MORBID (SEVERE) OBESITY DUE TO EXCESS CALORIES SNOMED Code(s): 323638159 (3) BMI 45.0-49.9, adult Status: Acute Code(s): Z68.42 - BODY MASS INDEX [BMI] 45.0-49.9, ADULT SNOMED Code(s): 176777932 (4) Sepsis Status: Acute Code(s): A41.9 - SEPSIS, UNSPECIFIED ORGANISM SNOMED Code(s): 79872032 (5) Anemia Status: Acute Code(s): D64.9 - ANEMIA, UNSPECIFIED SNOMED Code(s): 385625608 (6) Pneumonia due to COVID-19 virus Status: Acute Code(s): U07.1 - COVID-19; J12.82 - Pneumonia due to coronavirus disease 2019 SNOMED Code(s): 011231826299193438 (7) Inadequate dietary intake of protein Status: Acute Code(s): E63.9 - NUTRITIONAL DEFICIENCY, UNSPECIFIED SNOMED Code(s): 901716139 (8) Acute renal failure Status: Acute Code(s): N17.9 - ACUTE KIDNEY FAILURE, UNSPECIFIED SNOMED Code(s): 52880282 (9) Hyperglycemia Status: Acute Code(s): R73.9 - HYPERGLYCEMIA, UNSPECIFIED SNOMED Code(s): 82623439
--- NOTE | 2020-10-25 14:59 | P.PN ---
Subjective Progress Note Date: 10/25/20 HISTORY OF PRESENT ILLNESS 35-year-old female patient of Dr. Arroyo with past medical history of type 2 diabetes comes in with acute shortness of breath associated with high light s ugars. Patient on admission was found to have a fever of 101.5 pulse rate 125 respiratory rate 20. Blood pressure 132/106. On chest x-ray obtained in the ER suggestive of bilateral infiltrates concerning for call with pneumonia. COVID PCR was positive. On admissions patient had an ABG with a pH of 7.14 pCO2 of 20, pO2 of 59, bicarb of 7. Patient's blood sugar on admission was 424 on assessment today patient's blood work patient had a sodium 135 potassium 5.4 chloride 123 bicarb less than 5 and creatinine 0.73. D-dimer was elevated on admission patient 9 28 patient given 1 L of IV fluids followed by normal saline running at 200 mL/h. Patient was positive for acetone on admission. She will anion gap closed and was switched to D5NS. Insulin drip was continued during the night and was switched to patient's home medication this morning. One dose of remdesiver was ordered. Apparently around noon, A- team was called on the patient secondary to hypoxia patient's oxygen saturation dropped to the 70s and 80s on 100% nonrebreather. Patient was switched to BiPAP on 18/12 and is doing better o FiO2 of 80%. ABG was obtained and ph was 7. 14 pCO2 of 28 bicarb of 7 pO2 of 17. Patient noted to have uncompensated metabolic acidosis with compensated respiratory alkalosis. Stat dose of 1 amp bicarb was given and followed by sodium bicarbonate drip. Insulin drip restarted. Patient's initiated on dexamethasone 6 mg IV twice a day. Potassium phosphate ordered as phosphorus is low. Patient's repeat blood gases suggest a pH of 7.25, CO2 32 pO2 of 72 bicarb 14. I will not normal saline at 100 mL/h as patient's anion gap has increased. Patient given 1 dose of 2 mg of morphine with improvement in respiratory rate. One dose of Ativan 0.5 mg was given. Xanax 0.25 twice a day along with Ativan 0.5 IV every 6 hours ordered for the patient. Vitals were evaluated patient pulse 129 [id number]. She was moved to the ICU. Precedex drip was initiated. Lopressor was initiated at 25 twice a day. Metoprolol tartrate 5 mg IV every 6 hours. Systolic blood pressure more than 160. Started chest x-ray was obtained and suggest stable bilateral consolidation suggestive of COVID-19 pneumonia. 09/12 patient is seen in the ICU is currently mechanically ventilated and sedated on vent settings of respiratory rate 36, tidal volume 375 FiO2 80% PEEP of 18.. Vital signs reviewed patient had a temp of 100.4 pulse 150 respiratory rate 36 oxygen saturation 95% on 80% on fio2 .'s labs are reviewed which patient had a d-dimer 1.84 that is increased to 14.3. Arterial Blood gas suggest ph 7.35, CO2 40, po2 62, . Her BMP suggest a sodium 135 potassium 3.7 chloride 112 bicarb 21 creatinine 1.57 for calcitonin is 3.5 CRP is increased from 8.78.2 LDH is increased to 2614. Patient remains on Pneumovax, propofol drip. Lovenox increased to 50 subcu twice a day. Patient received 2 L of IV fluids. Continue IV fluids at 100 mL/h. Bicarb drip discontinued patient initiated on Zosyn 3.375 every 8 hours. Continue insulin drip at 4 units per hour. Patient is currently in prone positioning 09/13: Patient evaluated in the ICU remains on Ventilation continues to be sedated, in prone position. Vent settings are respiratory rate 36, tidal vital 375, FiO2 70% PEEP of 18. ABG shows pO2 of 82, PCO2 of 39, pH is 7.19. Latest labs show WBC 11.1, hemoglobin 13.2, d-dimer still pending, but yesterday was up to 14.3. Creatinine up to 3.4, BUN 24 sodium 137, potassium 4.0. Patient's urine output has been low, nephrology on consult. Bicarb drip increased to 100 miles an hour, receiving another liter of normal saline, she did have a ultrasound that showed unremarkable bilateral kidneys. Repeat chest x-ray showed bilateral lung infiltrates that are stable. Anion gap has closed, will start Lantus 10 units at at bedtime Novolog every 6 hours. 09/14: Patient is seen in the ICU, still currently mechanically ventilated and sedated. She continues in the prone position. Her oxygen quickly drops if she is not in prone. Patient's kidney function has worsened. Laboratory values show creatinine of 4.87, BUN 33, LDH 2191, C-reactive protein 2.7. ABG shows pH 7.32, pO2 of 60, pCO2 43. Patient is making almost no urine overnight. Nephrology is following patient continues on cefepime for urinary tract infection, culture is still pending. Vascular has been consulted for placement of temporary hemodialysis catheter for plans for dialysis. 09/15: Patient evaluated in the ICU, continues to be mechanically ventilated and sedated on assist control ventilation rate of 36, tidal volume 375, FiO2 100% and PEEP of 18. ABG today shows pO2 58, pCO2 of 45, and pH 7.35. She continues on tube feedings. Yesterday patient underwent ultrasound-guided right internal jugular non-tunneled hemodialysis catheter placement. Patient underwent hemodialysis treatment last night and plans have another hemodialysis treatment today. She continues to make almost no urine. She continues on cefepime for antibiotic coverage, and continues on Decadron and Lovenox. 09/16: Patient seen on follow-up remains in the ICU mechanically ventilated and sedated. She continues on assist control rate of 36, tidal volume 375, FiO2 100% and PEEP of 20. PEEP had to be increased due to patient had to be in supine position for dialysis, will go back to prone position once dialysis is complete. ABG shows pH 7.32, pCO2 49, PaO2 61. Laboratory values showed WBC 11.2, hemoglobin 11, sodium 134, creatinine 4.44, BUN 38. Urine culture shows no growth, blood cultures show no growth to date. Repeat chest x-ray shows bilateral pleural effusions, correlate for ARDS, pulmonary edema, diffuse pneumonia, findings are stable from last exam. Patient does not require any pressors, blood pressure 133/57, heart rate 78. 5/16: Patient was evaluated in the ICU today for follow-up. She continues to be intubated and on mechanical ventilation. Current vent settings are tidal volume 375, FiO2 100% and PEEP of 20. ABG shows pH 7.37, pCO2 40, pO2 102. She continues with intermittent prone positioning. Patient continues to have almost no urine output, maintained on dialysis. Patient received dialysis yesterday without complication. Laboratory values revealed WBC 10.3, hemoglobin 10.4, sodium 132, potassium 3.1, BUN 33, creatinine 4.29, LDH 1913, C-reactive protein 1.3. Urine and sputum cultures are negative, blood cultures show no growth to date. Consult placed to dietary to start TPN[ ] 09/18: She remains in the intensive care unit intubated and on mechanical ventilation with tidal volume 375, FiO2 60 and PEEP of 20. Patient is being prone to daily at approximately 16 hours per day. Pulmonary medicine has added in Dr. Zhang to do PEG tube and trach today. Patient is not on vasopressors. Repeat blood work reveals WBC 12.6, hemoglobin 9.8, platelet count 212. Sodium 133, potassium 3.2, chloride 102, CO2 21, BUN 35 and creatinine 4.12. Blood sugar 126. Patient underwent hemodialysis yesterday with removal of 2 L and is scheduled again today with goal of 2-3 L and is scheduled again tomorrow. 09/19: She is scheduled for hemodialysis today and is off fentanyl temporarily. Patient is status post trach and PEG tube yesterday. And she remains on mechanical ventilation. Pulse ox 93-95%. She has been afebrile, heart rate 64, respiratory rate 36, blood pressure 115/50. Fentanyl is off to improve blood pressure for hemodialysis which is scheduled for today. Contacted vascular surgery about permanent hemodialysis catheter. Repeat blood work reveals WBC 14.3, hemoglobin 9.6, platelet count 200. D-dimer 6.48. LDH 1686. C-reactive protein 1.1. BUN 34 creatinine 3.81. Sodium 130, potassium 3.5, chloride 101, CO2 18. Blood sugars running between 101 198. Plan is to wean off Pneumovax today. Patient remains on insulin drip. Repeat chest x-ray reveals bilateral multifocal confluent opacities consistent with COVID-19. Some improved aeratio n periphery of the left lung and worsening opacities throughout the right lung. 09/20: She remains in the intensive care unit on mechanical ventilation. She has been afebrile, heart rate 65, respiratory rate 37, blood pressure 121/70, pulse ox 91-99%. Repeat blood work reveals WBC 14.5, hemoglobin 9.1, platelet count 216. D-dimer 6.13. Sodium 133, potassium 3.1, chloride 102, CO2 18, BUN 35 and creatinine 4.27. Blood sugars running between 128 and 143. LDH 1717. C- reactive protein 1.7. Patient remains on insulin drip which will be transitioned to NovoLog scale every 6 hours. Patient is scheduled for permanent hemodialysis catheter placement today with vascular surgery. Repeat chest x-ray reveals stable diffuse bilateral interstitial and airspace disease. Possible small right effusion. His work is following for transfer to care home care facility. Do not anticipate discharge until next week. 09/21: Patient is undergoing hemodialysis. She remains on mechanical ventilation with tidal volume 375, FiO2 down to 45 and PEEP was decreased to 15. Patient is continued on propofol, fentanyl drips. She is on tube feedings at goal. Patient was taken off insulin drip yesterday and on scale only but blood sugars are running in the 200s, Levemir scheduled at bedtime will be added. Other blood work reveals WBC 13.3, hemoglobin 8.7, platelet count 192. Sodium 137, potassium 3.6, chloride 107, CO2 18, BUN 34 and creatinine 4.21. Repeat chest x-ray is stable. 09/22: She remains in the intensive care on mechanical ventilation with tidal volume 375, FiO2 of 50 and PEEP of 10. Pulse ox is running 96%. She is afebrile, heart rate in the 50s, respiratory rate 36, blood pressure 100/64. Repeat blood work reveals WBC 16.5, hemoglobin 8.9, platelet count 213. Sodium 134, potassium 3.7, chloride 103, CO2 21, BUN 34 and creatinine 3.89. Blood sugars running in the 200s to 324. Levemir increased to 16 units at bedtime and continue NovoLog scale every 6 hours. Patient is on tube feedings at goal. She has a Haley catheter in with a scant amount of dark/brown urine. Fecal management system is in place. Repeat chest x-ray reveals diffuse bilateral airspace infiltrates persist unchanged. Patient is scheduled for hemodialysis tomorrow morning on Friday. 09/23: Patient remains on mechanical ventilation with tidal volume 3.75, FiO2 50 and PEEP of 10. 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 She has no urine output. Fecal management system is in place. She is undergoing dialysis at this time with plan for removal of 2-1/2 L. She has been afebrile, heart rate in the 50s, respiratory rate 36, blood pressure 108/76 and pulse ox 89%. WBC 13.6, hemoglobin 9.1, platelet count 194. Sodium 136, potassium 3.0 and was replaced, chloride 106, CO2 21, BUN 49 creatinine 5.31. Blood sugars are running between 182 and this morning 194. Patient was still in the 200s and 300s. Levemir last evening was increased to 16 units. Patient remains on propofol and fentanyl drips. Lovenox was increased to 60 mg twice daily. 09/24: PEEP was increased today to 20, tidal volume is at 375 and FiO2 of 50%. Patient has been afebrile. She has been started on levo fed. Repeat chest x- ray reveals bilateral multifocal confluent opacities consistent with Covid 19 or ARDS redemonstrated. Nephrology will plan dialysis for tomorrow for 3 L. Patient remains on propofol fentanyl and Nimbex. WBC 12.5, hemoglobin 9.8, platelet count 161. D-dimer 13.3. Sodium 132, potassium 3.4, chloride 102, CO2 20, BUN 48 and creatinine 4.67. Blood sugars extremely elevated to 96-409. LDH 2217. 09/25: Patient remains in the intensive care unit on mechanical ventilation with tidal volume 375, FiO2 50 and PEEP of 20. Patient is afebrile, heart rate 61, respiratory rate 36, blood pressure 102/56, pulse ox 97%. Repeat blood work reveals WBC 9.3, hemoglobin 8.5 and platelet count 171. Sodium 130, potassium 3.7, chloride 100, CO2 20, BUN 61 creatinine 5.65. Blood sugars have been elev ated up to 455. Levemir increased to 20 units twice daily, NovoLog 5 units every 6 hours and continue NovoLog scale. Patient is scheduled for hemodialysis today. Repeat chest x-ray reveals bilateral multifocal and confluent opacities. Decadron and Lovenox dosing change by pulmonary. Patient is off norepinephrine. 09/26: Patient remains in the intensive care unit on mechanical ventilation with tidal volume 375, FiO2 50 and PEEP of 15. She has been afebrile, heart rate 91, blood pressure 114/68, pulse ox 99%. 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 Sodium 134, potassium 3.6, chloride 102, CO2 22, BUN 41 creatinine 4.21. Patient has improved blood sugars this morning running 150s and 160s. Diabetic medications were adjusted yesterday. Patient is awake and alert and interacting. Yesterday, patient had PICC line inserted by interventional radiology. Repeat chest x-ray reveals diffuse airspace infiltrates in both lung ann appear to progress slightly in the interval. 09/27: Patient remains in intensive care unit on mechanical ventilation with improvement of settings with tidal volume 375, FiO2 decreased to 40 and PEEP decreased to 10. Patient is on hemodialysis every other day and plan to remove 3 L today. Patient is more awake and alert. She is slow to respond but is able to follow simple commands. Blood sugars are running between 84 and 123. Repeat blood work reveals WBC 7.1, hemoglobin 8.1, platelets 152. Sodium 135, potassium 3.6, chloride 103, CO2 21, BUN 53 and creatinine 5.88. Repeat chest x-ray revealed cardiomegaly and pulmonary edema. Patient is on tube feedings:. Patient is not require vasopressors and is off sedation. Fecal management system remains in place for brown liquid stool. C. difficile was negative. 09/28: Patient remains on mechanical ventilation with tidal volume 375, FiO2 increased to 80 and PEEP increased to 18. Patient had a rough night was very anxious, no pain. Xanax 0.25 mg 3 times daily was added. There is concern for pulmonary embolism for which patient was started on heparin drip, she is unable to undergo CAT scan. Venous Doppler bilateral lower extremities was nondiagnostic due to extensive edema in obese patient but minimal imaging of the popliteal veins does show flow. Repeat echocardiogram has been ordered. Cefepime has also been ordered at 1 g IV piggyback every 24 hours as well as vancomycin, pharmacy dosing. Patient is back on fentanyl drip, propofol drip and norepinephrine. Blood sugars are elevated and insulin Levemir will be i ncreased to 25 mg twice daily. Ferrlecit infusion has been ordered by nephrology for 4 days. Patient is undergoing hemodialysis today.temperature max 100.2, heart rate 134, respiratory rate 34, blood pressure 120/65, pulse ox 94%. 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 Repeat blood work reveals WBC 16.9, hemoglobin 9.7, platelet count 216. D-dimer 8.81. Sodium 134, potassium 3.8, chloride 99, CO2 25, BUN 43 and creatinine 5.36. Blood sugars in the 200s. AST 40. 09/29 Patient had declined more last 48 hours require more sedation, patient is doing hemodialysis, respiratory failure is quite bit worse this time. Patient was inquired the pain is well back on fentanyl drip. Her vent set up with PEEP is limited but higher. No new finding on culture and her chest x-ray continues shows diffuse infiltrate persistent although there is a moderate interval improvement. 09/30 patient's was seen and evaluated. PEEP was reduced to 11 as patient is maintaining good saturation at the current vent settings. 10/01 patient was seen at bedside. She is currently on assist control rate of 28 white tidal volume 350 FiO2 50% and PEEP of 10 which has been reduced by pulmonary as patient name cleaning her oxygen saturation. Arm blood gas was obtained with a pH of 7.35 pCO2 37 pO2 of 63. She remains hemodynamically stable with no need for pressors. Labs were reviewed patient's BUN is 29 crea tinine 3.93 glucose 122 albumin 2.2 sodium 131 chloride 19 hemoglobin is downtrending with a Hb of 7.3 no leukocytosis 7.1. Patient's urine output is minimal at this time. Her rate has increased to 129 and is currently on positive fluid balance even with dialysis. Last dialysis was done yesterday. Continue enteral feeding currently at goal. Antibiotic has been discontinued and continues to remain on DEXA methicillin 4 mg IV daily. 10/02 patient continues to be on trach support with mechanical ventilation. Patient was evaluated by artist's model and was switched to VC control as patient was noted to be double stacking on and off throughout the night. Respiratory rate continue to 28 tidal volume increased to 400 with a PEEP for Dr. Downey. Patient is maintaining oxygen saturation 91% on the current setting. According to the nurse bedside patient saturation drops significantly or she is moved or her sedation is dropped. Patient is currently on propofol drip, fentanyl drip. She did underwent dialysis today and was able to maintain her low pressure without the need of pressors. Labs reviewed today suggest a WBC of 6.7 hemoglobin of 7.0 and d-dimer 3.9 bicarb 17 BUN 38 creatinine 4.8. LDH is 964. Sodium 1:30 likely secondary to volume overload. Urine sodium and urine osmolality ordered. Patient's glucose this morning is 146. Continue to remain on enteral feeding. Urine output is reduced. Fall catheter will be placed today. Continue to remain on dialysis. 10/03: Patient remains on mechanical ventilation and is back on propofol and fentanyl drips. Patient is currently on VC control with tidal volume 400, FiO2 55 and PEEP of 12. Patient still is not making any urine and is dialysis dependent with next treatment planned for tomorrow with removal of 3-3-1/2 L. PEG tube feedings are at goal. Fecal management system remains in place. At the time of evaluation, patient is off levophed. Repeat chest x-ray reveals stable diffuse bilateral airspace disease correlate for ARDS, pulmonary edema or diffuse pneumonia. Temperature max last evening was 101. Temperature currently 99, heart rate 106, respiratory rate 32, blood pressure 101/50, pulse ox 86%. Repeat blood work reveals WBC 6, hemoglobin 7.4, platelet count 160. D-dimer 4.05. Sodium 133, potassium 3.5, chloride 100, CO2 23, BUN 31 creatinine 3.8. Blood sugars are running between 100 and 170. Ferritin 1514. Liver function test normal. LDH 1016, C-reactive protein 13.6. Prognosis remains guarded. 10/04: Patient remains intubated on mechanical ventilation with tidal volume 400, FiO2 65, PEEP of 14. Patient continues to run fevers and repeat blood culture and urine and urine culture ordered for today. Haley catheter has been removed this patient has no significant urine output at about 20 mL per shift. BladderScan is monitored for greater than 300 and the patient is straight cathed. Hemoglobin is 6.8 and she has been ordered 41 unit of packed RBCs today. She is currently on propofol and fentanyl drips. She is scheduled for hemodialysis today. WBC 4.5, hemoglobin 6.8, platelet count 151. D-dimer 3.28. Sodium 132, potassium 4.1, chloride 100, CO2 22, BUN 37 creatinine 4.74. Blood sugars running between 97 and 110. Ferritin 1801. LDH 859. C-reactive protein 14.4. Chest x-ray reveals correlate for pneumonia, edema, ARDS. Prognosis remains guarded. 10/05: Patient remains in intensive care unit currently on mechanical ventilation with tidal volume 400, FiO2 was increased to 100 and PEEP is at 14. She continues to run fevers which have worsened with temperature max 103.1. She has been tachycardic in the 130s, blood pressure is marginal but not on vasopressors. Pulse ox currently 92%. Repeat blood work reveals WBC 5.5, hemoglobin 7.6, platelet count 190. D-dimer 2.7, ferritin 1770, LDH 932, C- reactive protein 21.4. Blood sugars are running between 100 1669. Electrolytes are normal. BUN 27 and creatinine 3.79. Pancultures were done yesterday including a straight cath for urine culture, sputum culture and blood culture. Arterial line was removed as well as midline. She is currently on propofol, fen tanyl and started on Nimbex today. 10/06: Patient remains in the intensive care unit. Today patient in prone position and remains on mechanical ventilation with tidal volume 350, FiO2 65 and PEEP of 14. Her last documented fever was yesterday at 2 PM. Heart rate is in the 120s, respiratory rate 32, pulse ox 88-92%. CBC is unremarkable. Electrolytes are normal. BUN 30 creatinine 2.93. Blood sugars are running between 135 and 164. Cultures from October 04: Blood culture no growth, sputum culture finalized, urine culture finalized. Catheter tip culture is in process. Repeat chest x-ray shows bilateral interstitial infiltrates. Patient is on tube feedings of Nepro at goal of 30 ML's per hour. Patient underwent dialysis yesterday and is scheduled for repeat dialysis today. 10/07: Patient maintains in the intensive care unit intubated and on mechanical ventilation. She is receiving hemodialysis this morning has been every day. Plan is to remove 2-1/2 L today. Vent settings have changed today with tidal volume 350, FiO2 was increased to 100% and PEEP remains at 14. She has been continued on Nimbex, fentanyl, norepinephrine and propofol. Plan is to prone position patient following dialysis. Repeat chest x-ray reveals worsening interstitial infiltrates. BUN is 26 and creatinine 2.59. LDH 955, C-reactive protein 22.1. Prognosis remains poor. 10/08: Patient remains in intensive care unit intubated and on mechanical ventilation with tidal volume 350, FiO2 60, PEEP of 14. She is pronating today. She is scheduled for hemodialysis on a daily basis. She has been afebrile, heart rate 112, respiratory rate 36, blood pressure 161/88, pulse ox 93%. Repeat blood work reveals WBC 9.9, hemoglobin 9.1, platelet count 320. Sodium 133, potassium 5.3, chloride 100, CO2 20, BUN 29 creatinine 2.44. Blood sugar running between 102 and 139. LDH 1026, C-reactive protein 19.7. 10/09: Patient is undergoing dialysis this morning. She continues to be intubated and on mechanical ventilation with tidal volume 350, 270 and PEEP of 14. Patient is also on propofol, Nimbex, norepinephrine and fentanyl drips. Repeat chest x-ray reveals persistent bilateral multifocal and confluent opacities consistent with Covid 19. She is afebrile, heart rate 116, respiratory rate 36, blood pressure 120/65, pulse ox 91%. Repeat blood work reveals WBC 5.4, hemoglobin 9.2, platelet count 216. D-dimer 2.67, ferritin 2568, LDH 794, C- reactive protein 13.9. Blood sugars have been running 90-104. Creatinine 1.64. She is on daily dialysis treatment. 10/10: She remains in the intensive care unit. She is now out of isolation as a repeat Covid test came back negative. She remains on mechanical ventilation with tidal volume 350, FiO2 70 and PEEP of 14. Patient is also on Nimbex, propofol, norepinephrine, fentanyl drips. She is on PEG tube feedings at goal and tolerating well. Repeat blood work reveals WBC 7.8, hemoglobin 7.5, platelet count 267. Sodium 139, potassium 3.9, chloride 109, CO2 20, BUN 20 creatinine 1.29. Blood sugars are running between 76 and 102. Scheduled Aiyana Log decreased to 3 units. Repeat chest x-ray reveals moderate cardiomegaly and continued pulmonary edema. Slight interval improvement. Patient is continued on daily hemodialysis. 10/11: Patient remains in intensive care unit on mechanical ventilation with tidal volume 325, FiO2 70, PEEP 14. She is currently being prone. She underwent hemodialysis this morning with removal of 4 L of fluid with plan to continue daily treatment. She is currently on Nimbex, fentanyl and propofol. No vasopressor at this time. Fecal management system remains in place. She is on tube feedings currently at hold due to prone positioning. Patient has been afebrile, heart rate 116, respiratory rate 36, blood pressure 100/58, pulse ox 93-96%. Repeat blood work reveals WBC 9.3, hemoglobin 8.1, platelet count 276. Sodium 136, potassium 4.3, chloride 103, CO2 20, BUN 20 creatinine 1.14. Blood sugars running between 133 and 202. 10/12: Patient remains in the intensive care unit. She is undergoing hemodialy sis this morning. She's been afebrile, heart rate in the 120s, respiratory rate 32, blood pressure 102/65. She is not on vasopressors. She is continued on Nimbex, fentanyl and propofol. Vent settings are currently tidal volume 325, FiO2 70, PEEP 14. Total platelet count 273. Sodium 133, potassium 4.7, chloride 100, CO2 19, BUN 21 creatinine 0.91. Blood sugars running between 121 and 143. 10/13: Patient remain in the ICU she is on hemodialysis daily, she is still on the vent with a PEEP of 14 and FiO2 of 70. Her oxygenation is marginal pulse rate still high. Patient had scratched cornea was seen in ophthalmology decided to keep doing eyedrops along with eye patch at this point. Prognosis still very bad this point. 10/14: She remains on mechanical ventilation with tidal volume 325, FiO2 70% and PEEP of 14. She did require label fed last evening for about 6 hours. She did not tolerate pronating yesterday. She is undergoing dialysis this morning with plan for removal of 4 L. Blood sugars have been low and IV fluids changed to D10 until blood sugars have recovered. Levemir and scheduled NovoLog discontinued. Patient is on tube feedings at goal there's been no change in th is. 10/15 patient remains on mechanical ventilation in the intensive care unit. FiO2 still at 70%, PEEP of 18. Blood sugars have improved since medications were adjusted. White blood cells 33.9, hemoglobin 8.5, sodium 135, BUN 19, creatinine 0.96. Patient to receive dialysis again today. Patient did run a low-grade fever throughout the night and pro calcitonin level is ordered. Chest x-ray showed continued diffuse bilateral airspace disease. Patient remains on tube feedings at goal. 10/16: Patient remains on mechanical ventilation with tidal volume 300, FiO2 70, PEEP of 15. Fecal management system is out. She is currently on low dose of norepinephrine. She is also on fentanyl drip, propofol drip, rocuronium drip. Heart rate is running in the 130s, sinus rhythm, blood pressure 121/63, pulse ox 95%. Patient is been afebrile. Repeat blood work reveals WBC 18.9, hemoglobin 7.5, platelet count 291. Sodium 135, potassium 4.2, chloride 101, CO2 19, BUN 25 and creatinine 1.36. Blood sugars are running between 143 and 199. Patient is on scale insulin only. Repeat chest x-ray reveals persistent bilateral multifocal and completed opacities consistent with Covid 19. 10/17: Patient remains on mechanical ventilation with tidal volume 300, FiO2 50, PEEP of 14. She is currently receiving hemodialysis. The patient is having yellow-colored drainage from the trach site. This is going to be culture today. Repeat blood work reveals WBC of 24, hemoglobin 7.3 and platelet count 310. Sodium 136, potassium 4.1, chloride 101, CO2 19, BUN 24 creatinine 1.43. Blood sugar 139. Capillary blood glucose running 147 and 189. Repeat chest x-ray is unchanged. Patient had increased respiratory rate 40s and 50s with oxygen saturation of 87 and now was increased and Seroquel added this morning. Prognosis remains guarded. 10/18: Patient remains on mechanical ventilation with tidal volume 300, FiO2 60, PEEP has been decreased to 12. Patient will need a PEEP of 8 in order to tra nsfer to long-term care. She is currently on fentanyl drip and Precedex drip. Patient is tracking when her name is stated. She seems to be slightly improved today. Patient has been afebrile, heart rate 106, respiratory rate 32, blood pressure 110/61, pulse ox 98%. Repeat blood work reveals WBC 30.3, hemoglobin 7.2, platelet count 350. Sodium 139, potassium 4.2, chloride 103, CO2 20, BUN 23 creatinine 1.79. Blood sugars are increasing running up 299. Patient will be placed on Levemir. Secretions from tracheotomy sent for culture and in process. She is currently undergoing hemodialysis. 10/23: Patient remains in the intensive care unit on mechanical ventilation with tidal volume 300, FiO2 65 and PEEP of 10. speech therapy teacher has been in a sinus rhythm. Patient does open her eyes and appears to be tracking. Blood sugars have been elevated. Levemir will be increased to 40 units daily and scheduled NovoLog increased to 12 units and continue NovoLog every 6 hours per scale. Patient is receiving hemodialysis today. She is not currently on vasopressors. Patient is on Precedex drip only. Antibiotics in the form of cefepime were started on October 18. Patient has been afebrile, heart rate 126, respiratory rate 36, blood pressure 163/105. Pulse ox 91%. Repeat blood work reveals WBC 16.0, hemoglobin 7.2, platelet count 208. Electrolytes are within normal limits. BUN 62 and creatinine 2.43. Blood sugars running between 259-321. Most recent blood culture from [facility] 20 is no growth at 24 hours. Repeat chest x-ray reveals cardiomegaly and persistent bilateral pulmonary edema. 10/24: Patient is awake, eyes are open and tracking, she is able to follow simple commands. Severe generalized weakness noted. Precedex gtt has been discontinued. Patient is receiving hemodialysis. Her blood sugars have remained elevated for which Levemir increased to 25 units twice daily along with 15 units of NovoLog every 6 hours along with scale. Tidal volume 330, FiO2 60, PEEP of 8. client portfolio manager and sawmill production worker following closely. Anticipate possible discharge by the end of next week to long-term care facility. 10/25: Patient remains in the intensive care unit on mechanical ventilation. Tidal volume 350, FiO2 60, PEEP 8. She is receiving hemodialysis this morning. Her heart rate remains elevated in the 130s. Pulmonary as started her on Cardizem at 60 mg 3 times daily which has not had any improved effect. We'll start the patient on Lopressor 25 mg twice daily. Patient has been afebrile, heart rate respiratory rate 32, blood pressure 151/91, pulse ox 98%. Patient is been transfuse 1 unit of packed RBCs today. Patient's mental status is improving and patient is able to follow simple commands. WBC 12.2, hemoglobin 6.3, platelet count 196. Sodium 135 otherwise looked lites are normal, BUN 48 creatinine 1.99. Blood sugars are running between 120 and 172. Levemir has been increased to 30 mg twice daily continue 15 units of NovoLog every 6 hours with scale. REVIEW OF SYSTEMS Unable to obtain due to mechanical ventilation. PHYSICAL EXAMINATION Gen: This is is a 35-year-old black female, patient is on mechanical ventilation, appears to be comfortable. HEENT: Head is atraumatic, normocephalic. Pupils equal, round. Sclerae is anicteric. Eyes are open and tracking. Tracheostomy midline. NECK: Supple. No JVD. No lymphadenopathy. No thyromegaly. LUNGS: Lung sounds are diminished at the bases but otherwise clear to auscultation. No intercostal retractions. HEART: Regular rate and rhythm. No murmur. speech therapy teacher sinus tachycardia. ABDOMEN: Soft. Bowel sounds are present. No masses. No tenderness. EXTREMITIES: Trace bilateral pedal edema. No calf tenderness. NEUROLOGICAL: Patient is able to follow simple commands, significant weakness. ASSESSMENT AND PLAN 1. Acute hypoxic respiratory failure secondary to Covid 19 pneumonia and possible bacterial pneumonia. Patient was intubated on September 11. She is status post 1 dose of Remdesivir and 1 dose of Tocilizumab. Continue Ventolin inhaler 4 times daily, Lovenox 30 mg subcu daily, supplements. Status post PEG tube and trach. Continue cefepime. 2. Acute diabetic ketoacidosis secondary to Covid 19 pneumonia, uncontrolled with hyperglycemia. Levemir increased to 30 units twice daily and scheduled NovoLog 15 units every 6 hours and continue NovoLog scale every 6 hours. 3. Metabolic encephalopathy secondary to Covid 19 and DKA. 4. Sepsis and septic shock secondary to Covid 19 pneumonia with multiorgan failure. Continue as in #1. Trach drainage cultured. 5. Acute metabolic acidosis secondary to acute DKA, Covid 19 and acute kidney injury. Renvela 1600 mg 3 times daily.. 6. Diabetes mellitus type 2 uncontrolled with A1c 13.6. Continue as above. 7. Hypophosphatemia status post replacement. 8. Hyperkalemia secondary to DKA, resolved. 9. Sinus tachycardia secondary to sepsis, volume deficiency. Patient is on Cardizem 60 mg 3 times daily, and Lopressor 25 mg twice daily. 10. Acute kidney injury secondary to ATN secondary to Covid 19 and DKA. Continue daily hemodialysis. Permanent dialysis catheter placed. 11. Possible acute gram-negative pneumonia versus MRSA pneumonia. Completed course of antibiotics. 12. Hypertension. 13. Morbid obesity with BMI of 53. 14. DVT prophylaxis. Lovenox. 15. GI prophylaxis. Protonix 40 mg IV push daily. CODE STATUS: Full code Prognosis guarded. DISCHARGE PLAN Copy Holder Acute Care Impression and plan of care have been directed as dictated by the signing physician. Kimberly Boswell nurse practitioner acting as scribe for signing physician. Objective - Vital Signs Vital signs: Vital Signs Temp 99.4 F 10/25/20 08:00 Pulse 126 H 10/25/20 10:00 Resp 31 H 10/25/20 10:00 BP 157/79 10/25/20 10:00 Pulse Ox 91 L 10/25/20 10:00 Intake & Output 10/24/20 10/25/20 10/25/20 18:59 06:59 18:59 Intake Total 1134.32 882 394 Output Total 4000 Balance -2865.68 882 394 Weight 100.4 kg Intake: IV 170 120 40 Cefepime 1 gm In Sodium 50 Chloride 0.9% 50 ml @ 12. 5 mls/hr IVPB Q24H [facility] Rx #:[id number] Sodium Chloride 0.9% 500 120 120 40 ml 500 ml @ 10 mls/hr IV .Q24H [facility] Rx#:[id number] Intake, IV Titration 2.32 Amount Dexmedetomidine/0.9% NaCl 2.32 (Pmx) 400 mcg In Empty Bag 1 bag @ Titrate IV . Q0M [facility] Rx#:[id number] Tube Feeding 672 672 224 Other 290 90 130 Output: Urine 0 Hemodialysis 4000 Other: Voiding Method Incontinent Incontinent ABP, PAP, CO, CI - Last Documented Arterial Blood Pressure 136/76 - Labs CBC & Chem 7: 10/25/20 04:25 10/25/20 03:45 Labs: Abnormal Lab Results - Last 24 Hours (Table) 10/24/20 10/24/20 10/25/20 Range/Units 17:45 23:33 03:45 WBC (3.8-10.6) k/uL RBC (3.80-5.40) m/uL Hgb (11.4-16.0) gm/dL Hct (34.0-46.0) % MCHC (31.0-37.0) g/dL RDW (11.5-15.5) % Neutrophils # (1.3-7.7) k/uL Sodium 135 L (137-145) mmol/L BUN 48 H (7-17) mg/dL Creatinine 1.99 H (0.52-1.04) mg/dL Glucose 120 H (74-99) mg/dL POC Glucose (mg/dL) 191 H 172 H (75-99) mg/dL Total Protein 4.9 L (6.3-8.2) g/dL Albumin 2.4 L (3.5-5.0) g/dL 10/25/20 10/25/20 Range/Units 04:25 10:58 WBC 12.2 H (3.8-10.6) k/uL RBC 2.31 L (3.80-5.40) m/uL Hgb 6.3 L* (11.4-16.0) gm/dL Hct 20.9 L (34.0-46.0) % MCHC 30.2 L (31.0-37.0) g/dL RDW 17.8 H (11.5-15.5) % Neutrophils # 9.9 H (1.3-7.7) k/uL Sodium (137-145) mmol/L BUN (7-17) mg/dL Creatinine (0.52-1.04) mg/dL Glucose (74-99) mg/dL POC Glucose (mg/dL) 243 H (75-99) mg/dL Total Protein (6.3-8.2) g/dL Albumin (3.5-5.0) g/dL Microbiology - Last 24 Hours (Table) 10/22/20 09:36 Blood Culture - Preliminary Blood No Growth after 48 hours 10/22/20 20:55 Gram Stain - Preliminary Sputum Sputum Culture - Preliminary Gram Neg Bacilli
[2020-10-25] MEDS: METOPROLOL TARTRATE 25 MG TAB PO SCH ×2 (16:13→20:48)
[2020-10-25] MEDS: CEFEPIME 1 GM in SODIUM CHLORIDE 0.9% 50 ML IVPB SCH (16:13)
[2020-10-25 17:46] LABS: Glucose,Whole Blood 176 mg/dL (75-99)
[2020-10-25] MEDS: NOREPINEPHRINE 8 MG in SODIUM CHLORIDE 0.9% 250 ML IV SCH (22:25)
[2020-10-25 23:58] LABS: Glucose,Whole Blood 150 mg/dL (75-99)
[2020-10-26] MEDS: HYDROmorphone 0.5 MG/0.5 ML SYRINGE IVP PRN ×4 (00:40→23:38)
[2020-10-26 04:26] LABS: Anisocytosis Slight; Basophils # (A) 0.1 k/uL (0-0.2); Basophils % (A) 1 %; Eosinophils # (A) 0.4 k/uL (0-0.7); Eosinophils % (A) 4 %; HCT 22.9 % (34.0-46.0); HGB 7.3 gm/dL (11.4-16.0); Hypochromasia Moderate; Lymphocytes % (A) 10 %; MCH 28.4 pg (25.0-35.0); MCHC 32.1 g/dL (31.0-37.0); MCV 88.5 fL (80.0-100.0); Mean Platelet Volume 9.7; Monocytes # (A) 0.6 k/uL (0-1.0); Monocytes % (A) 6 %; Neutrophils # (A) 8.2 k/uL (1.3-7.7); Neutrophils % (A) 79 %; Platelet Count 186 k/uL (150-450); Poikilocytosis Moderate; RBC 2.59 m/uL (3.80-5.40); RDW 17.3 % (11.5-15.5); WBC 10.4 k/uL (3.8-10.6)
[2020-10-26 04:39] LABS: Albumin 2.6 g/dL (3.5-5.0); Calcium 9.3 mg/dL (8.4-10.2); Potassium 3.9 mmol/L (3.5-5.1); Total Bilirubin 0.2 mg/dL (0.2-1.3); Total Protein 5.3 g/dL (6.3-8.2)
[2020-10-26] MEDS: METOPROLOL TARTRATE 5 MG/5 ML VIAL IVP PRN (05:18)
[2020-10-26 05:37] LABS: Glucose,Whole Blood 117 mg/dL (75-99)
[2020-10-26] MEDS: NYSTATIN 100,000 UNIT/ML SUSP 500,000 UNIT/5 ML CUP PO SCH ×4 (05:39→23:42)
[2020-10-26] MEDS: SEVELAMER 800 MG TAB PO SCH ×3 (05:39→17:26)
[2020-10-26] MEDS: INSULIN ASPART (NovoLOG) 100 UNIT/ML VIAL SQ SCH ×8 (05:40→23:40)
[2020-10-26 05:55] LABS: ABG HCO3 30 mmol/L (21-25); ABG Oxygen Saturation 91.4 % (94-97); ABG PCO2 46 mmHg (35-45); ABG PH 7.43 (7.35-7.45); ABG TCO2 32 mmol/L (19-24); Allen Test Performed? Yes
[2020-10-26 05:58] LABS: ABG PO2 59 mmHg (83-108)
[2020-10-26] MEDS: ALBUTEROL HFA INHALER INHALATION SCH ×4 (07:28→19:57)
[2020-10-26] MEDS ORDERED: POTASSIUM BICARBONATE/CIT AC 20 MEQ TABLET.EFF PO ONE (07:33)
[2020-10-26] MEDS: CHLORHEXIDINE GLUCONATE 15 ML CUP MUCOUS MEM SCH ×2 (07:59→21:14)
[2020-10-26] MEDS: METOPROLOL TARTRATE 25 MG TAB PO SCH (07:59)
[2020-10-26] MEDS: QUEtiapine 100 MG TAB PO SCH (07:59)
[2020-10-26] MEDS: PANTOPRAZOLE 40 MG/10 ML VIAL IVP SCH (07:59)
[2020-10-26] MEDS: INSULIN DETEMIR (LEVEMIR) 100 UNIT/ML SYR SQ SCH ×2 (08:00→23:39)
[2020-10-26] MEDS: DILTIAZEM ORAL 60 MG TAB PO SCH ×3 (08:00→21:15)
[2020-10-26] MEDS: ASCORBIC ACID 500 MG TAB PO SCH ×2 (08:00→21:14)
[2020-10-26] MEDS: ENOXAPARIN 30 MG/0.3 ML SYRINGE SQ SCH (08:00)
[2020-10-26] MEDS: CHOLECALCIFEROL 25 MCG (1000 IU) TABLET PO SCH (08:00)
--- NOTE | 2020-10-26 08:08 | P.PN ---
Subjective Patient is seen in follow-up for acute kidney injury. Oliguric. Status post tracheostomy and PEG tube placement this admission. Receiving tube feeding. Currently on 50% FiO2. Received a unit of blood yesterday. No active bleeding per the nurse. Vital signs: Stable. General: The patient appeared well nourished and normally developed. HEENT: Tracheostomy noted. LUNGS: Breath sounds decreased. HEART: Regular rate and rhythm. Abdomen: Soft, no distention. EXTREMITITES: 1+ edema. Objective - Vital Signs Vital signs: Vital Signs Temp 99.1 F 10/26/20 04:00 Pulse 122 H 10/26/20 07:00 Resp 30 H 10/26/20 07:00 BP 148/89 10/26/20 07:00 Pulse Ox 92 L 10/26/20 07:00 Intake & Output 10/25/20 10/26/20 10/26/20 18:59 06:59 18:59 Intake Total 1312 762 56 Balance 1312 762 56 Weight 100.4 kg 100.9 kg Intake: IV 140 Cefepime 1 gm In Sodium 100 Chloride 0.9% 50 ml @ 12. 5 mls/hr IVPB Q24H [facility] Rx #:[id number] Sodium Chloride 0.9% 500 40 ml 500 ml @ 10 mls/hr IV .Q24H [facility] Rx#:[id number] Tube Feeding 672 672 56 Blood Product 310 Rc As-1 Unit 310 [id number] Other 190 90 Other: Voiding Method Incontinent Incontinent ABP, PAP, CO, CI - Last Documented Arterial Blood Pressure 136/76 - Labs CBC & Chem 7: 10/26/20 04:05 10/26/20 04:05 Labs: Abnormal Lab Results - Last 24 Hours (Table) 10/25/20 10/25/20 10/25/20 Range/Units 10:53 10:58 17:44 RBC (3.80-5.40) m/uL Hgb (11.4-16.0) gm/dL Hct (34.0-46.0) % RDW (11.5-15.5) % Neutrophils # (1.3-7.7) k/uL ABG pCO2 (35-45) mmHg ABG pO2 (83-108) mmHg ABG HCO3 (21-25) mmol/L ABG Total CO2 (19-24) mmol/L ABG O2 Saturation (94-97) % Sodium (137-145) mmol/L BUN (7-17) mg/dL Creatinine (0.52-1.04) mg/dL POC Glucose (mg/dL) 243 H 176 H (75-99) mg/dL Total Protein (6.3-8.2) g/dL Albumin (3.5-5.0) g/dL Crossmatch See Detail 10/25/20 10/26/20 10/26/20 Range/Units 23:47 04:05 04:05 RBC 2.59 L (3.80-5.40) m/uL Hgb 7.3 L (11.4-16.0) gm/dL Hct 22.9 L (34.0-46.0) % RDW 17.3 H (11.5-15.5) % Neutrophils # 8.2 H (1.3-7.7) k/uL ABG pCO2 (35-45) mmHg ABG pO2 (83-108) mmHg ABG HCO3 (21-25) mmol/L ABG Total CO2 (19-24) mmol/L ABG O2 Saturation (94-97) % Sodium 135 L (137-145) mmol/L BUN 45 H (7-17) mg/dL Creatinine 1.94 H (0.52-1.04) mg/dL POC Glucose (mg/dL) 150 H (75-99) mg/dL Total Protein 5.3 L (6.3-8.2) g/dL Albumin 2.6 L (3.5-5.0) g/dL Crossmatch 10/26/20 10/26/20 Range/Units 05:35 05:50 RBC (3.80-5.40) m/uL Hgb (11.4-16.0) gm/dL Hct (34.0-46.0) % RDW (11.5-15.5) % Neutrophils # (1.3-7.7) k/uL ABG pCO2 46 H (35-45) mmHg ABG pO2 59 L* (83-108) mmHg ABG HCO3 30 H (21-25) mmol/L ABG Total CO2 32 H (19-24) mmol/L ABG O2 Saturation 91.4 L (94-97) % Sodium (137-145) mmol/L BUN (7-17) mg/dL Creatinine (0.52-1.04) mg/dL POC Glucose (mg/dL) 117 H (75-99) mg/dL Total Protein (6.3-8.2) g/dL Albumin (3.5-5.0) g/dL Crossmatch Microbiology - Last 24 Hours (Table) 10/22/20 09:36 Blood Culture - Preliminary Blood No Growth after 72 hours Assessment and Plan Plan: Assessment: 1. Acute kidney injury secondary to ATN secondary to COVID-19 and DKA. Baseline creatinine is near 1. Started on hemodialysis on September 14. Has p-cath. Oliguric. No hydronephrosis noted on kidney ultrasound. 2. DKA s/p insulin drip and IV fluids. 3. Acute hypoxic respiratory failure secondary to COVID-19 pneumonia. Status post tracheostomy this admission. 4. Metabolic acidosis secondary to acute kidney injury and DKA s/p bicarb drip. Improved postdialysis. 5. Hyponatremia, hypervolemic. Stable. 6. Hyperphosphatemia secondary to acute kidney injury. Maintained on Renvela. 7. Anemia of chronic illness and kidney disease. Maintained on Aranesp. Iron deficiency noted - s/p iv iron. Hemoglobin 6.3 today. 8. Fluid overload. Improving with daily ultrafiltration. Plan: Continue with daily dialysis. Maintain tube feeds. Avoid nephrotoxins. Continue to monitor renal function and urine output. Monitor for renal recovery. Wean FiO2.
[2020-10-26] MEDS: ALPRAZolam 0.25 MG TAB PO PRN (08:09)
--- NOTE | 2020-10-26 08:23 | XR ---
EXAMINATION TYPE: XR chest 1V portable DATE OF EXAM: 10/26/2020 Comparison: 10/25/2020 Clinical History: 35-year-old female shortness of breath, assess lungs. Findings: Tracheostomy cannula is present. Right-sided double-lumen hemodialysis catheter with tips in the lowe r SVC. Right PICC tip at the upper to mid SVC. Heart remains mildly enlarged. Diffuse interstitial ch anges and mid and lower lung predominant airspace disease persists. There may be some shifting opacit y with slight worsening at the right base. Impression: Continued bilateral airspace disease, likely pulmonary edema. Some shifting opacities with slight wor sening at the right base.
[2020-10-26] MEDS ORDERED: METOPROLOL TARTRATE 25 MG TAB PO STA (11:35)
[2020-10-26 11:45] LABS: Glucose,Whole Blood 194 mg/dL (75-99)
[2020-10-26] MEDS: ESCITALOPRAM 10 MG TAB PO SCH (11:56)
--- NOTE | 2020-10-26 11:58 | P.PN ---
<Paloma Chester - Last Filed: 10/26/20 16:37> Subjective Progress Note Date: 10/26/20 CHIEF COMPLAINT: COVID-19 pneumonia HISTORY OF PRESENT ILLNESS: Patient is in the ICU for COVID-19 pneumonia and respiratory failure. She is status post tracheostomy and PEG tube placement with Dr. Hollis. Patient is tolerating tube feedings. Patient's to feedings are at 56 mL per hour. Patient remains on mechanical ventilation. She is off the sedation. She has been getting daily hemodialysis. Patient is awake and responding to simple commands. Patient has had no further signs of tracheostomy leak. Patient has significant wound at the tracheostomy site. Afebrile. White count normalized to 10.4 hemoglobin is up from 6.3-7.3 after blood transfusion. Patient seen and examined with Dr. hollis PHYSICAL EXAM: VITAL SIGNS: Reviewed. GENERAL: Well-developed in no acute distress. HEENT: No sclera icterus. Extraocular movements grossly intact. Moist buccal mucosa. Head is atraumatic, normocephalic. Patient has wound located and skin breakdown at tracheostomy site. The wound is measuring 5.5 x 3 cm. ABDOMEN: Soft. Nondistended. Nontender. PEG tube site clean dry and intact NEUROLOGIC: Awake and opens eyes ASSESSMENT: 1. Acute hypoxic respiratory failure with prolonged mechanical ventilation due to COVID-19 pneumonia status post tracheostomy placement 2. Severe protein calorie malnutrition status post PEG tube placement 3. Pressure wound at tracheostomy site PLAN: -Agree with consult to wound care service for tracheostomy wound -Continue tube feedings -Continue supportive care -Continue ICU management -Continue trach care and monitor for tracheostomy leak Physician Ski Production Supervisor note has been reviewed by physician. Signing provider agrees with the documented findings, assessment, and plan of care. Objective - Vital Signs Vital signs: Vital Signs Temp 99.2 F 10/26/20 11:03 Pulse 128 H 10/26/20 11:03 Resp 37 H 10/26/20 11:03 BP 149/79 10/26/20 11:03 Pulse Ox 93 L 10/26/20 11:00 Intake & Output 10/25/20 10/26/20 10/26/20 18:59 06:59 18:59 Intake Total 1312 762 310 Output Total 4000 Balance 1312 762 -3690 Weight 100.4 kg 100.9 kg Intake: IV 140 Cefepime 1 gm In Sodium 100 Chloride 0.9% 50 ml @ 12. 5 mls/hr IVPB Q24H [facility] Rx #:[id number] Sodium Chloride 0.9% 500 40 ml 500 ml @ 10 mls/hr IV .Q24H [facility] Rx#:[id number] Tube Feeding 672 672 280 Blood Product 310 Rc As-1 Unit 310 [id number] Other 190 90 30 Output: Hemodialysis 4000 Other: Voiding Method Incontinent Incontinent ABP, PAP, CO, CI - Last Documented Arterial Blood Pressure 136/76 - Labs CBC & Chem 7: 10/26/20 04:05 10/26/20 04:05 Labs: Abnormal Lab Results - Last 24 Hours (Table) 10/25/20 10/25/20 10/25/20 Range/Units 10:53 17:44 23:47 RBC (3.80-5.40) m/uL Hgb (11.4-16.0) gm/dL Hct (34.0-46.0) % RDW (11.5-15.5) % Neutrophils # (1.3-7.7) k/uL ABG pCO2 (35-45) mmHg ABG pO2 (83-108) mmHg ABG HCO3 (21-25) mmol/L ABG Total CO2 (19-24) mmol/L ABG O2 Saturation (94-97) % Sodium (137-145) mmol/L BUN (7-17) mg/dL Creatinine (0.52-1.04) mg/dL POC Glucose (mg/dL) 176 H 150 H (75-99) mg/dL Creatine Kinase (30-135) U/L Total Protein (6.3-8.2) g/dL Albumin (3.5-5.0) g/dL Crossmatch See Detail 10/26/20 10/26/20 10/26/20 Range/Units 04:05 04:05 04:05 RBC 2.59 L (3.80-5.40) m/uL Hgb 7.3 L (11.4-16.0) gm/dL Hct 22.9 L (34.0-46.0) % RDW 17.3 H (11.5-15.5) % Neutrophils # 8.2 H (1.3-7.7) k/uL ABG pCO2 (35-45) mmHg ABG pO2 (83-108) mmHg ABG HCO3 (21-25) mmol/L ABG Total CO2 (19-24) mmol/L ABG O2 Saturation (94-97) % Sodium 135 L (137-145) mmol/L BUN 45 H (7-17) mg/dL Creatinine 1.94 H (0.52-1.04) mg/dL POC Glucose (mg/dL) (75-99) mg/dL Creatine Kinase 25 L (30-135) U/L Total Protein 5.3 L (6.3-8.2) g/dL Albumin 2.6 L (3.5-5.0) g/dL Crossmatch 10/26/20 10/26/20 10/26/20 Range/Units 05:35 05:50 11:43 RBC (3.80-5.40) m/uL Hgb (11.4-16.0) gm/dL Hct (34.0-46.0) % RDW (11.5-15.5) % Neutrophils # (1.3-7.7) k/uL ABG pCO2 46 H (35-45) mmHg ABG pO2 59 L* (83-108) mmHg ABG HCO3 30 H (21-25) mmol/L ABG Total CO2 32 H (19-24) mmol/L ABG O2 Saturation 91.4 L (94-97) % Sodium (137-145) mmol/L BUN (7-17) mg/dL Creatinine (0.52-1.04) mg/dL POC Glucose (mg/dL) 117 H 194 H (75-99) mg/dL Creatine Kinase (30-135) U/L Total Protein (6.3-8.2) g/dL Albumin (3.5-5.0) g/dL Crossmatch Microbiology - Last 24 Hours (Table) 10/22/20 09:36 Blood Culture - Preliminary Blood No Growth after 96 hours 10/22/20 20:55 Gram Stain - Final Sputum Sputum Culture - Final Acinetobacter ivonne/haemol <Brii Sánchez N - Last Filed: 01/12/21 11:31> Subjective As above. Patient seen and evaluated. CHIEF COMPLAINT: Ventral dependent respiratory failure HISTORY OF PRESENT ILLNESS: The patient is a 35-year-old female with coronavirus pneumonia, ventilator dependent respiratory failure and tracheostomy and gastrostomy tube placement. She is on dialysis due to multiple co-morbidities due to complication from COVID infection. She has new complication with tracheostomy pressure sore. ROS: No new chest pain. Morbidly obese, BMI over 45.0. Mechanical ventilation. PHYSICAL EXAM: VITAL SIGNS: Reviewed CONSTITUTIONAL: Well developed and in no acute distress. EYES: Conjuctivae without sclera icterus. Extraocular movements grossly intact. HEAD, EARS, NOSE, THROAT: Moist buccal mucosa. Head is atraumatic, normocephalic. NECK: Tracheostomy intact with subcutaneous erosion from the tracheostomy, less than 2 cm RESPIRATORY: Non-labored respirations and equal bilateral excursions. CARDIOVASCULAR: Palpable 2+ radial pulses. ABDOMEN: Gastrostomy tube intact MUSCULOSKELETAL: No gross deformity of the lower extremities noted. No clubbing. No cyanosis. SKIN: Good skin turgor. Well perfused. NEUROLOGIC: Cranial nerves II through XII grossly intact. No focal or lateralizing signs. PSYCH: CLINICAL LABS: Reviewed. WBC over 10,000 ASSESSMENT: 1. Coronavirus pneumonia 2. Ventilatory-dependent respiratory failure 3. Status post tracheostomy for prolonged intubation 4. Status post gastrostomy for inadequate protein malnutrition 5. Morbid obesity due to excess calories, BMI 47.5 6. Anemia status post blood transfusion 7. Sepsis 8. Acute renal failure and hemodialysis 9. Poorly controlled diabetes, hyperglycemia 10. Complication from tracheostomy PLAN: 1. She has new pressure ulcer along the tracheostomy site recommend wound care management. 2. Continue with tube feeds for nutritional support 3. Continue IV antibiotics Objective - Vital Signs Vital signs: Vital Signs Temp 97.6 F 11/17/20 02:00 Pulse 105 H 11/17/20 02:00 Resp 20 11/17/20 08:40 BP 137/85 11/17/20 02:00 Pulse Ox 92 L 11/17/20 08:18 ABP, PAP, CO, CI - Last Documented Arterial Blood Pressure 136/76 - Labs CBC & Chem 7: 11/17/20 05:35 11/17/20 05:35 Assessment and Plan (1) Respiratory failure requiring intubation Status: Acute Code(s): J96.90 - RESPIRATORY FAILURE, UNSP, UNSP W HYPOXIA OR HYPERCAPNIA SNOMED Code(s): 719279272 (2) Morbid obesity due to excess calories Status: Acute Code(s): E66.01 - MORBID (SEVERE) OBESITY DUE TO EXCESS CALORIES SNOMED Code(s): 787959585 (3) BMI 45.0-49.9, adult Status: Acute Code(s): Z68.42 - BODY MASS INDEX [BMI] 45.0-49.9, ADULT SNOMED Code(s): 024545023 (4) Sepsis Status: Acute Code(s): A41.9 - SEPSIS, UNSPECIFIED ORGANISM SNOMED Code(s): 89602233 (5) Anemia Status: Acute Code(s): D64.9 - ANEMIA, UNSPECIFIED SNOMED Code(s): 910571175 (6) Pneumonia due to COVID-19 virus Status: Acute Code(s): U07.1 - COVID-19; J12.82 - Pneumonia due to coronavirus disease 2019 SNOMED Code(s): 277472709817403982 (7) Inadequate dietary intake of protein Status: Acute Code(s): E63.9 - NUTRITIONAL DEFICIENCY, UNSPECIFIED SNOMED Code(s): 336973491 (8) Acute renal failure Status: Acute Code(s): N17.9 - ACUTE KIDNEY FAILURE, UNSPECIFIED SNOMED Code(s): 11094514 (9) Hyperglycemia Status: Acute Code(s): R73.9 - HYPERGLYCEMIA, UNSPECIFIED SNOMED Code(s): 61634434 (10) Complication of tracheostomy Status: Acute Code(s): J95.00 - UNSPECIFIED TRACHEOSTOMY COMPLICATION SNOMED Code(s): 90963718
--- NOTE | 2020-10-26 13:18 | P.PN ---
Subjective Progress Note Date: 10/26/20 HISTORY OF PRESENT ILLNESS 35-year-old female patient of Dr. Arroyo with past medical history of type 2 diabetes comes in with acute shortness of breath associated with high light s ugars. Patient on admission was found to have a fever of 101.5 pulse rate 125 respiratory rate 20. Blood pressure 132/106. On chest x-ray obtained in the ER suggestive of bilateral infiltrates concerning for call with pneumonia. COVID PCR was positive. On admissions patient had an ABG with a pH of 7.14 pCO2 of 20, pO2 of 59, bicarb of 7. Patient's blood sugar on admission was 424 on assessment today patient's blood work patient had a sodium 135 potassium 5.4 chloride 123 bicarb less than 5 and creatinine 0.73. D-dimer was elevated on admission patient 9 28 patient given 1 L of IV fluids followed by normal saline running at 200 mL/h. Patient was positive for acetone on admission. She will anion gap closed and was switched to D5NS. Insulin drip was continued during the night and was switched to patient's home medication this morning. One dose of remdesiver was ordered. Apparently around noon, A- team was called on the patient secondary to hypoxia patient's oxygen saturation dropped to the 70s and 80s on 100% nonrebreather. Patient was switched to BiPAP on 18/12 and is doing better o FiO2 of 80%. ABG was obtained and ph was 7. 14 pCO2 of 28 bicarb of 7 pO2 of 17. Patient noted to have uncompensated metabolic acidosis with compensated respiratory alkalosis. Stat dose of 1 amp bicarb was given and followed by sodium bicarbonate drip. Insulin drip restarted. Patient's initiated on dexamethasone 6 mg IV twice a day. Potassium phosphate ordered as phosphorus is low. Patient's repeat blood gases suggest a pH of 7.25, CO2 32 pO2 of 72 bicarb 14. I will not normal saline at 100 mL/h as patient's anion gap has increased. Patient given 1 dose of 2 mg of morphine with improvement in respiratory rate. One dose of Ativan 0.5 mg was given. Xanax 0.25 twice a day along with Ativan 0.5 IV every 6 hours ordered for the patient. Vitals were evaluated patient pulse 129 [id number]. She was moved to the ICU. Precedex drip was initiated. Lopressor was initiated at 25 twice a day. Metoprolol tartrate 5 mg IV every 6 hours. Systolic blood pressure more than 160. Started chest x-ray was obtained and suggest stable bilateral consolidation suggestive of COVID-19 pneumonia. 09/12 patient is seen in the ICU is currently mechanically ventilated and sedated on vent settings of respiratory rate 36, tidal volume 375 FiO2 80% PEEP of 18.. Vital signs reviewed patient had a temp of 100.4 pulse 150 respiratory rate 36 oxygen saturation 95% on 80% on fio2 .'s labs are reviewed which patient had a d-dimer 1.84 that is increased to 14.3. Arterial Blood gas suggest ph 7.35, CO2 40, po2 62, . Her BMP suggest a sodium 135 potassium 3.7 chloride 112 bicarb 21 creatinine 1.57 for calcitonin is 3.5 CRP is increased from 8.78.2 LDH is increased to 2614. Patient remains on Pneumovax, propofol drip. Lovenox increased to 50 subcu twice a day. Patient received 2 L of IV fluids. Continue IV fluids at 100 mL/h. Bicarb drip discontinued patient initiated on Zosyn 3.375 every 8 hours. Continue insulin drip at 4 units per hour. Patient is currently in prone positioning 09/13: Patient evaluated in the ICU remains on Ventilation continues to be sedated, in prone position. Vent settings are respiratory rate 36, tidal vital 375, FiO2 70% PEEP of 18. ABG shows pO2 of 82, PCO2 of 39, pH is 7.19. Latest labs show WBC 11.1, hemoglobin 13.2, d-dimer still pending, but yesterday was up to 14.3. Creatinine up to 3.4, BUN 24 sodium 137, potassium 4.0. Patient's urine output has been low, nephrology on consult. Bicarb drip increased to 100 miles an hour, receiving another liter of normal saline, she did have a ultrasound that showed unremarkable bilateral kidneys. Repeat chest x-ray showed bilateral lung infiltrates that are stable. Anion gap has closed, will start Lantus 10 units at at bedtime Novolog every 6 hours. 09/14: Patient is seen in the ICU, still currently mechanically ventilated and sedated. She continues in the prone position. Her oxygen quickly drops if she is not in prone. Patient's kidney function has worsened. Laboratory values show creatinine of 4.87, BUN 33, LDH 2191, C-reactive protein 2.7. ABG shows pH 7.32, pO2 of 60, pCO2 43. Patient is making almost no urine overnight. Nephrology is following patient continues on cefepime for urinary tract infection, culture is still pending. Vascular has been consulted for placement of temporary hemodialysis catheter for plans for dialysis. 09/15: Patient evaluated in the ICU, continues to be mechanically ventilated and sedated on assist control ventilation rate of 36, tidal volume 375, FiO2 100% and PEEP of 18. ABG today shows pO2 58, pCO2 of 45, and pH 7.35. She continues on tube feedings. Yesterday patient underwent ultrasound-guided right internal jugular non-tunneled hemodialysis catheter placement. Patient underwent hemodialysis treatment last night and plans have another hemodialysis treatment today. She continues to make almost no urine. She continues on cefepime for antibiotic coverage, and continues on Decadron and Lovenox. 09/16: Patient seen on follow-up remains in the ICU mechanically ventilated and sedated. She continues on assist control rate of 36, tidal volume 375, FiO2 100% and PEEP of 20. PEEP had to be increased due to patient had to be in supine position for dialysis, will go back to prone position once dialysis is complete. ABG shows pH 7.32, pCO2 49, PaO2 61. Laboratory values showed WBC 11.2, hemoglobin 11, sodium 134, creatinine 4.44, BUN 38. Urine culture shows no growth, blood cultures show no growth to date. Repeat chest x-ray shows bilateral pleural effusions, correlate for ARDS, pulmonary edema, diffuse pneumonia, findings are stable from last exam. Patient does not require any pressors, blood pressure 133/57, heart rate 78. 5/16: Patient was evaluated in the ICU today for follow-up. She continues to be intubated and on mechanical ventilation. Current vent settings are tidal volume 375, FiO2 100% and PEEP of 20. ABG shows pH 7.37, pCO2 40, pO2 102. She continues with intermittent prone positioning. Patient continues to have almost no urine output, maintained on dialysis. Patient received dialysis yesterday without complication. Laboratory values revealed WBC 10.3, hemoglobin 10.4, sodium 132, potassium 3.1, BUN 33, creatinine 4.29, LDH 1913, C-reactive protein 1.3. Urine and sputum cultures are negative, blood cultures show no growth to date. Consult placed to dietary to start TPN[ ] 09/18: She remains in the intensive care unit intubated and on mechanical ventilation with tidal volume 375, FiO2 60 and PEEP of 20. Patient is being prone to daily at approximately 16 hours per day. Pulmonary medicine has added in Dr. Zhang to do PEG tube and trach today. Patient is not on vasopressors. Repeat blood work reveals WBC 12.6, hemoglobin 9.8, platelet count 212. Sodium 133, potassium 3.2, chloride 102, CO2 21, BUN 35 and creatinine 4.12. Blood sugar 126. Patient underwent hemodialysis yesterday with removal of 2 L and is scheduled again today with goal of 2-3 L and is scheduled again tomorrow. 09/19: She is scheduled for hemodialysis today and is off fentanyl temporarily. Patient is status post trach and PEG tube yesterday. And she remains on mechanical ventilation. Pulse ox 93-95%. She has been afebrile, heart rate 64, respiratory rate 36, blood pressure 115/50. Fentanyl is off to improve blood pressure for hemodialysis which is scheduled for today. Contacted vascular surgery about permanent hemodialysis catheter. Repeat blood work reveals WBC 14.3, hemoglobin 9.6, platelet count 200. D-dimer 6.48. LDH 1686. C-reactive protein 1.1. BUN 34 creatinine 3.81. Sodium 130, potassium 3.5, chloride 101, CO2 18. Blood sugars running between 101 198. Plan is to wean off Pneumovax today. Patient remains on insulin drip. Repeat chest x-ray reveals bilateral multifocal confluent opacities consistent with COVID-19. Some improved aeratio n periphery of the left lung and worsening opacities throughout the right lung. 09/20: She remains in the intensive care unit on mechanical ventilation. She has been afebrile, heart rate 65, respiratory rate 37, blood pressure 121/70, pulse ox 91-99%. Repeat blood work reveals WBC 14.5, hemoglobin 9.1, platelet count 216. D-dimer 6.13. Sodium 133, potassium 3.1, chloride 102, CO2 18, BUN 35 and creatinine 4.27. Blood sugars running between 128 and 143. LDH 1717. C- reactive protein 1.7. Patient remains on insulin drip which will be transitioned to NovoLog scale every 6 hours. Patient is scheduled for permanent hemodialysis catheter placement today with vascular surgery. Repeat chest x-ray reveals stable diffuse bilateral interstitial and airspace disease. Possible small right effusion. His work is following for transfer to [facility] facility. Do not anticipate discharge until next week. 09/21: Patient is undergoing hemodialysis. She remains on mechanical ventilation with tidal volume 375, FiO2 down to 45 and PEEP was decreased to 15. Patient is continued on propofol, fentanyl drips. She is on tube feedings at goal. Patient was taken off insulin drip yesterday and on scale only but blood sugars are running in the 200s, Levemir scheduled at bedtime will be added. Other blood work reveals WBC 13.3, hemoglobin 8.7, platelet count 192. Sodium 137, potassium 3.6, chloride 107, CO2 18, BUN 34 and creatinine 4.21. Repeat chest x-ray is stable. 09/22: She remains in the intensive care on mechanical ventilation with tidal volume 375, FiO2 of 50 and PEEP of 10. Pulse ox is running 96%. She is afebrile, heart rate in the 50s, respiratory rate 36, blood pressure 100/64. Repeat blood work reveals WBC 16.5, hemoglobin 8.9, platelet count 213. Sodium 134, potassium 3.7, chloride 103, CO2 21, BUN 34 and creatinine 3.89. Blood sugars running in the 200s to 324. Levemir increased to 16 units at bedtime and continue NovoLog scale every 6 hours. Patient is on tube feedings at goal. She has a Haley catheter in with a scant amount of dark/brown urine. Fecal management system is in place. Repeat chest x-ray reveals diffuse bilateral airspace infiltrates persist unchanged. Patient is scheduled for hemodialysis tomorrow morning on Friday. 09/23: Patient remains on mechanical ventilation with tidal volume 3.75, FiO2 50 and PEEP of 10. media monitor sinus rhythm. She has no urine output. Fecal management system is in place. She is undergoing dialysis at this time with plan for removal of 2-1/2 L. She has been afebrile, heart rate in the 50s, respiratory rate 36, blood pressure 108/76 and pulse ox 89%. WBC 13.6, hemoglobin 9.1, platelet count 194. Sodium 136, potassium 3.0 and was replaced, chloride 106, CO2 21, BUN 49 creatinine 5.31. Blood sugars are running between 182 and this morning 194. Patient was still in the 200s and 300s. Levemir last evening was increased to 16 units. Patient remains on propofol and fentanyl drips. Lovenox was increased to 60 mg twice daily. 09/24: PEEP was increased today to 20, tidal volume is at 375 and FiO2 of 50%. Patient has been afebrile. She has been started on levo fed. Repeat chest x- ray reveals bilateral multifocal confluent opacities consistent with Covid 19 or ARDS redemonstrated. Nephrology will plan dialysis for tomorrow for 3 L. Patient remains on propofol fentanyl and Nimbex. WBC 12.5, hemoglobin 9.8, platelet count 161. D-dimer 13.3. Sodium 132, potassium 3.4, chloride 102, CO2 20, BUN 48 and creatinine 4.67. Blood sugars extremely elevated to 96-409. LDH 2217. 09/25: Patient remains in the intensive care unit on mechanical ventilation with tidal volume 375, FiO2 50 and PEEP of 20. Patient is afebrile, heart rate 61, respiratory rate 36, blood pressure 102/56, pulse ox 97%. Repeat blood work reveals WBC 9.3, hemoglobin 8.5 and platelet count 171. Sodium 130, potassium 3.7, chloride 100, CO2 20, BUN 61 creatinine 5.65. Blood sugars have been elev ated up to 455. Levemir increased to 20 units twice daily, NovoLog 5 units every 6 hours and continue NovoLog scale. Patient is scheduled for hemodialysis today. Repeat chest x-ray reveals bilateral multifocal and confluent opacities. Decadron and Lovenox dosing change by pulmonary. Patient is off norepinephrine. 09/26: Patient remains in the intensive care unit on mechanical ventilation with tidal volume 375, FiO2 50 and PEEP of 15. She has been afebrile, heart rate 91, blood pressure 114/68, pulse ox 99%. media monitor sinus rhythm. 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 Sodium 134, potassium 3.6, chloride 102, CO2 22, BUN 41 creatinine 4.21. Patient has improved blood sugars this morning running 150s and 160s. Diabetic medications were adjusted yesterday. Patient is awake and alert and interacting. Yesterday, patient had PICC line inserted by interventional radiology. Repeat chest x-ray reveals diffuse airspace infiltrates in both lung ann appear to progress slightly in the interval. 09/27: Patient remains in intensive care unit on mechanical ventilation with improvement of settings with tidal volume 375, FiO2 decreased to 40 and PEEP decreased to 10. Patient is on hemodialysis every other day and plan to remove 3 L today. Patient is more awake and alert. She is slow to respond but is able to follow simple commands. Blood sugars are running between 84 and 123. Repeat blood work reveals WBC 7.1, hemoglobin 8.1, platelets 152. Sodium 135, potassium 3.6, chloride 103, CO2 21, BUN 53 and creatinine 5.88. Repeat chest x-ray revealed cardiomegaly and pulmonary edema. Patient is on tube feedings:. Patient is not require vasopressors and is off sedation. Fecal management system remains in place for brown liquid stool. C. difficile was negative. 09/28: Patient remains on mechanical ventilation with tidal volume 375, FiO2 increased to 80 and PEEP increased to 18. Patient had a rough night was very anxious, no pain. Xanax 0.25 mg 3 times daily was added. There is concern for pulmonary embolism for which patient was started on heparin drip, she is unable to undergo CAT scan. Venous Doppler bilateral lower extremities was nondiagnostic due to extensive edema in obese patient but minimal imaging of the popliteal veins does show flow. Repeat echocardiogram has been ordered. Cefepime has also been ordered at 1 g IV piggyback every 24 hours as well as vancomycin, pharmacy dosing. Patient is back on fentanyl drip, propofol drip and norepinephrine. Blood sugars are elevated and insulin Levemir will be i ncreased to 25 mg twice daily. Ferrlecit infusion has been ordered by nephrology for 4 days. Patient is undergoing hemodialysis today.temperature max 100.2, heart rate 134, respiratory rate 34, blood pressure 120/65, pulse ox 94%. media monitor is sinus tachycardia. Repeat blood work reveals WBC 16.9, hemoglobin 9.7, platelet count 216. D-dimer 8.81. Sodium 134, potassium 3.8, chloride 99, CO2 25, BUN 43 and creatinine 5.36. Blood sugars in the 200s. AST 40. 09/29 Patient had declined more last 48 hours require more sedation, patient is doing hemodialysis, respiratory failure is quite bit worse this time. Patient was inquired the pain is well back on fentanyl drip. Her vent set up with PEEP is limited but higher. No new finding on culture and her chest x-ray continues shows diffuse infiltrate persistent although there is a moderate interval improvement. 09/30 patient's was seen and evaluated. PEEP was reduced to 11 as patient is maintaining good saturation at the current vent settings. 10/01 patient was seen at bedside. She is currently on assist control rate of 28 white tidal volume 350 FiO2 50% and PEEP of 10 which has been reduced by pulmonary as patient name cleaning her oxygen saturation. Arm blood gas was obtained with a pH of 7.35 pCO2 37 pO2 of 63. She remains hemodynamically stable with no need for pressors. Labs were reviewed patient's BUN is 29 crea tinine 3.93 glucose 122 albumin 2.2 sodium 131 chloride 19 hemoglobin is downtrending with a Hb of 7.3 no leukocytosis 7.1. Patient's urine output is minimal at this time. Her rate has increased to 129 and is currently on positive fluid balance even with dialysis. Last dialysis was done yesterday. Continue enteral feeding currently at goal. Antibiotic has been discontinued and continues to remain on DEXA methicillin 4 mg IV daily. 10/02 patient continues to be on trach support with mechanical ventilation. Patient was evaluated by wrecking mechanic and was switched to VC control as patient was noted to be double stacking on and off throughout the night. Respiratory rate continue to 28 tidal volume increased to 400 with a PEEP for Dr. Downey. Patient is maintaining oxygen saturation 91% on the current setting. According to the nurse bedside patient saturation drops significantly or she is moved or her sedation is dropped. Patient is currently on propofol drip, fentanyl drip. She did underwent dialysis today and was able to maintain her low pressure without the need of pressors. Labs reviewed today suggest a WBC of 6.7 hemoglobin of 7.0 and d-dimer 3.9 bicarb 17 BUN 38 creatinine 4.8. LDH is 964. Sodium 1:30 likely secondary to volume overload. Urine sodium and urine osmolality ordered. Patient's glucose this morning is 146. Continue to remain on enteral feeding. Urine output is reduced. Fall catheter will be placed today. Continue to remain on dialysis. 10/03: Patient remains on mechanical ventilation and is back on propofol and fentanyl drips. Patient is currently on VC control with tidal volume 400, FiO2 55 and PEEP of 12. Patient still is not making any urine and is dialysis dependent with next treatment planned for tomorrow with removal of 3-3-1/2 L. PEG tube feedings are at goal. Fecal management system remains in place. At the time of evaluation, patient is off levophed. Repeat chest x-ray reveals stable diffuse bilateral airspace disease correlate for ARDS, pulmonary edema or diffuse pneumonia. Temperature max last evening was 101. Temperature currently 99, heart rate 106, respiratory rate 32, blood pressure 101/50, pulse ox 86%. Repeat blood work reveals WBC 6, hemoglobin 7.4, platelet count 160. D-dimer 4.05. Sodium 133, potassium 3.5, chloride 100, CO2 23, BUN 31 creatinine 3.8. Blood sugars are running between 100 and 170. Ferritin 1514. Liver function test normal. LDH 1016, C-reactive protein 13.6. Prognosis remains guarded. 10/04: Patient remains intubated on mechanical ventilation with tidal volume 400, FiO2 65, PEEP of 14. Patient continues to run fevers and repeat blood culture and urine and urine culture ordered for today. Haley catheter has been removed this patient has no significant urine output at about 20 mL per shift. BladderScan is monitored for greater than 300 and the patient is straight cathed. Hemoglobin is 6.8 and she has been ordered 41 unit of packed RBCs today. She is currently on propofol and fentanyl drips. She is scheduled for hemodialysis today. WBC 4.5, hemoglobin 6.8, platelet count 151. D-dimer 3.28. Sodium 132, potassium 4.1, chloride 100, CO2 22, BUN 37 creatinine 4.74. Blood sugars running between 97 and 110. Ferritin 1801. LDH 859. C-reactive protein 14.4. Chest x-ray reveals correlate for pneumonia, edema, ARDS. Prognosis remains guarded. 10/05: Patient remains in intensive care unit currently on mechanical ventilation with tidal volume 400, FiO2 was increased to 100 and PEEP is at 14. She continues to run fevers which have worsened with temperature max 103.1. She has been tachycardic in the 130s, blood pressure is marginal but not on vasopressors. Pulse ox currently 92%. Repeat blood work reveals WBC 5.5, hemoglobin 7.6, platelet count 190. D-dimer 2.7, ferritin 1770, LDH 932, C- reactive protein 21.4. Blood sugars are running between 100 1669. Electrolytes are normal. BUN 27 and creatinine 3.79. Pancultures were done yesterday including a straight cath for urine culture, sputum culture and blood culture. Arterial line was removed as well as midline. She is currently on propofol, fen tanyl and started on Nimbex today. 10/06: Patient remains in the intensive care unit. Today patient in prone position and remains on mechanical ventilation with tidal volume 350, FiO2 65 and PEEP of 14. Her last documented fever was yesterday at 2 PM. Heart rate is in the 120s, respiratory rate 32, pulse ox 88-92%. CBC is unremarkable. Electrolytes are normal. BUN 30 creatinine 2.93. Blood sugars are running between 135 and 164. Cultures from October 04: Blood culture no growth, sputum culture finalized, urine culture finalized. Catheter tip culture is in process. Repeat chest x-ray shows bilateral interstitial infiltrates. Patient is on tube feedings of Nepro at goal of 30 ML's per hour. Patient underwent dialysis yesterday and is scheduled for repeat dialysis today. 10/07: Patient maintains in the intensive care unit intubated and on mechanical ventilation. She is receiving hemodialysis this morning has been every day. Plan is to remove 2-1/2 L today. Vent settings have changed today with tidal volume 350, FiO2 was increased to 100% and PEEP remains at 14. She has been continued on Nimbex, fentanyl, norepinephrine and propofol. Plan is to prone position patient following dialysis. Repeat chest x-ray reveals worsening interstitial infiltrates. BUN is 26 and creatinine 2.59. LDH 955, C-reactive protein 22.1. Prognosis remains poor. 10/08: Patient remains in intensive care unit intubated and on mechanical ventilation with tidal volume 350, FiO2 60, PEEP of 14. She is pronating today. She is scheduled for hemodialysis on a daily basis. She has been afebrile, heart rate 112, respiratory rate 36, blood pressure 161/88, pulse ox 93%. Repeat blood work reveals WBC 9.9, hemoglobin 9.1, platelet count 320. Sodium 133, potassium 5.3, chloride 100, CO2 20, BUN 29 creatinine 2.44. Blood sugar running between 102 and 139. LDH 1026, C-reactive protein 19.7. 10/09: Patient is undergoing dialysis this morning. She continues to be intubated and on mechanical ventilation with tidal volume 350, 270 and PEEP of 14. Patient is also on propofol, Nimbex, norepinephrine and fentanyl drips. Repeat chest x-ray reveals persistent bilateral multifocal and confluent opacities consistent with Covid 19. She is afebrile, heart rate 116, respiratory rate 36, blood pressure 120/65, pulse ox 91%. Repeat blood work reveals WBC 5.4, hemoglobin 9.2, platelet count 216. D-dimer 2.67, ferritin 2568, LDH 794, C- reactive protein 13.9. Blood sugars have been running 90-104. Creatinine 1.64. She is on daily dialysis treatment. 10/10: She remains in the intensive care unit. She is now out of isolation as a repeat Covid test came back negative. She remains on mechanical ventilation with tidal volume 350, FiO2 70 and PEEP of 14. Patient is also on Nimbex, propofol, norepinephrine, fentanyl drips. She is on PEG tube feedings at goal and tolerating well. Repeat blood work reveals WBC 7.8, hemoglobin 7.5, platelet count 267. Sodium 139, potassium 3.9, chloride 109, CO2 20, BUN 20 creatinine 1.29. Blood sugars are running between 76 and 102. Scheduled Aiyana Log decreased to 3 units. Repeat chest x-ray reveals moderate cardiomegaly and continued pulmonary edema. Slight interval improvement. Patient is continued on daily hemodialysis. 10/11: Patient remains in intensive care unit on mechanical ventilation with tidal volume 325, FiO2 70, PEEP 14. She is currently being prone. She underwent hemodialysis this morning with removal of 4 L of fluid with plan to continue daily treatment. She is currently on Nimbex, fentanyl and propofol. No vasopressor at this time. Fecal management system remains in place. She is on tube feedings currently at hold due to prone positioning. Patient has been afebrile, heart rate 116, respiratory rate 36, blood pressure 100/58, pulse ox 93-96%. Repeat blood work reveals WBC 9.3, hemoglobin 8.1, platelet count 276. Sodium 136, potassium 4.3, chloride 103, CO2 20, BUN 20 creatinine 1.14. Blood sugars running between 133 and 202. 10/12: Patient remains in the intensive care unit. She is undergoing hemodialy sis this morning. She's been afebrile, heart rate in the 120s, respiratory rate 32, blood pressure 102/65. She is not on vasopressors. She is continued on Nimbex, fentanyl and propofol. Vent settings are currently tidal volume 325, FiO2 70, PEEP 14. Total platelet count 273. Sodium 133, potassium 4.7, chloride 100, CO2 19, BUN 21 creatinine 0.91. Blood sugars running between 121 and 143. 10/13: Patient remain in the ICU she is on hemodialysis daily, she is still on the vent with a PEEP of 14 and FiO2 of 70. Her oxygenation is marginal pulse rate still high. Patient had scratched cornea was seen in ophthalmology decided to keep doing eyedrops along with eye patch at this point. Prognosis still very bad this point. 10/14: She remains on mechanical ventilation with tidal volume 325, FiO2 70% and PEEP of 14. She did require label fed last evening for about 6 hours. She did not tolerate pronating yesterday. She is undergoing dialysis this morning with plan for removal of 4 L. Blood sugars have been low and IV fluids changed to D10 until blood sugars have recovered. Levemir and scheduled NovoLog discontinued. Patient is on tube feedings at goal there's been no change in th is. 10/15 patient remains on mechanical ventilation in the intensive care unit. FiO2 still at 70%, PEEP of 18. Blood sugars have improved since medications were adjusted. White blood cells 33.9, hemoglobin 8.5, sodium 135, BUN 19, creatinine 0.96. Patient to receive dialysis again today. Patient did run a low-grade fever throughout the night and pro calcitonin level is ordered. Chest x-ray showed continued diffuse bilateral airspace disease. Patient remains on tube feedings at goal. 10/16: Patient remains on mechanical ventilation with tidal volume 300, FiO2 70, PEEP of 15. Fecal management system is out. She is currently on low dose of norepinephrine. She is also on fentanyl drip, propofol drip, rocuronium drip. Heart rate is running in the 130s, sinus rhythm, blood pressure 121/63, pulse ox 95%. Patient is been afebrile. Repeat blood work reveals WBC 18.9, hemoglobin 7.5, platelet count 291. Sodium 135, potassium 4.2, chloride 101, CO2 19, BUN 25 and creatinine 1.36. Blood sugars are running between 143 and 199. Patient is on scale insulin only. Repeat chest x-ray reveals persistent bilateral multifocal and completed opacities consistent with Covid 19. 10/17: Patient remains on mechanical ventilation with tidal volume 300, FiO2 50, PEEP of 14. She is currently receiving hemodialysis. The patient is having yellow-colored drainage from the trach site. This is going to be culture today. Repeat blood work reveals WBC of 24, hemoglobin 7.3 and platelet count 310. Sodium 136, potassium 4.1, chloride 101, CO2 19, BUN 24 creatinine 1.43. Blood sugar 139. Capillary blood glucose running 147 and 189. Repeat chest x-ray is unchanged. Patient had increased respiratory rate 40s and 50s with oxygen saturation of 87 and now was increased and Seroquel added this morning. Prognosis remains guarded. 10/18: Patient remains on mechanical ventilation with tidal volume 300, FiO2 60, PEEP has been decreased to 12. Patient will need a PEEP of 8 in order to tra nsfer to long-term care. She is currently on fentanyl drip and Precedex drip. Patient is tracking when her name is stated. She seems to be slightly improved today. Patient has been afebrile, heart rate 106, respiratory rate 32, blood pressure 110/61, pulse ox 98%. Repeat blood work reveals WBC 30.3, hemoglobin 7.2, platelet count 350. Sodium 139, potassium 4.2, chloride 103, CO2 20, BUN 23 creatinine 1.79. Blood sugars are increasing running up 299. Patient will be placed on Levemir. Secretions from tracheotomy sent for culture and in process. She is currently undergoing hemodialysis. 10/23: Patient remains in the intensive care unit on mechanical ventilation with tidal volume 300, FiO2 65 and PEEP of 10. media monitor has been in a sinus rhythm. Patient does open her eyes and appears to be tracking. Blood sugars have been elevated. Levemir will be increased to 40 units daily and scheduled NovoLog increased to 12 units and continue NovoLog every 6 hours per scale. Patient is receiving hemodialysis today. She is not currently on vasopressors. Patient is on Precedex drip only. Antibiotics in the form of cefepime were started on October 18. Patient has been afebrile, heart rate 126, respiratory rate 36, blood pressure 163/105. Pulse ox 91%. Repeat blood work reveals WBC 16.0, hemoglobin 7.2, platelet count 208. Electrolytes are within normal limits. BUN 62 and creatinine 2.43. Blood sugars running between 259-321. Most recent blood culture from [facility] is no growth at 24 hours. Repeat chest x-ray reveals cardiomegaly and persistent bilateral pulmonary edema. 10/24: Patient is awake, eyes are open and tracking, she is able to follow simple commands. Severe generalized weakness noted. Precedex gtt has been discontinued. Patient is receiving hemodialysis. Her blood sugars have remained elevated for which Levemir increased to 25 units twice daily along with 15 units of NovoLog every 6 hours along with scale. Tidal volume 330, FiO2 60, PEEP of 8. sem manager and director social following closely. Anticipate possible discharge by the end of next week to long-term care facility. 10/25: Patient remains in the intensive care unit on mechanical ventilation. Tidal volume 350, FiO2 60, PEEP 8. She is receiving hemodialysis this morning. Her heart rate remains elevated in the 130s. Pulmonary as started her on Cardizem at 60 mg 3 times daily which has not had any improved effect. We'll start the patient on Lopressor 25 mg twice daily. Patient has been afebrile, heart rate respiratory rate 32, blood pressure 151/91, pulse ox 98%. Patient is been transfuse 1 unit of packed RBCs today. Patient's mental status is improving and patient is able to follow simple commands. WBC 12.2, hemoglobin 6.3, platelet count 196. Sodium 135 otherwise looked lites are normal, BUN 48 creatinine 1.99. Blood sugars are running between 120 and 172. Levemir has been increased to 30 mg twice daily continue 15 units of NovoLog every 6 hours with scale. 10/26: Patient remains in intensive care unit, on mechanical ventilation with tidal volume 375, FiO2 50, PEEP of 8. Patient's heart rate remains elevated 120s and Lopressor increased to 50 mg twice daily. Patient seems to be quite anxious and depressed. We will decrease Seroquel to 50 mg twice daily and start patient on Lexapro. Patient received her first dose of Xanax this morning but this did not seem to help heart rate either. She has been afebrile, heart rate 128, blood pressure 149/79, pulse ox 93%. Repeat hemoglobin 7.3. Sodium 135, potassium 3.9, chloride 90, CO2 30, BUN 45 and creatinine 1.94. Blood sugar are improved running between 117-194. We will make further adjustments to insulin and to increase long-acting to 35 units twice daily and decrease NovoLog scheduled to 7 units and continue NovoLog scale. There are problems with patient's trach and consequently placed with [facility]. General surgery to reevaluate trach. REVIEW OF SYSTEMS Unable to obtain due to mechanical ventilation. PHYSICAL EXAMINATION Gen: This is is a 35-year-old black female, patient is on mechanical ventilation, appears to be comfortable. HEENT: Head is atraumatic, normocephalic. Pupils equal, round. Sclerae is anicteric. Eyes are open and tracking. Tracheostomy midline. NECK: Supple. No JVD. No lymphadenopathy. No thyromegaly. LUNGS: Lung sounds are diminished at the bases but otherwise clear to auscultation. No intercostal retractions. HEART: Regular rate and rhythm. No murmur. media monitor sinus tachycardia. ABDOMEN: Soft. Bowel sounds are present. No masses. No tenderness. EXTREMITIES: Trace bilateral pedal edema. No calf tenderness. NEUROLOGICAL: Patient is able to follow simple commands, significant weakness. ASSESSMENT AND PLAN 1. Acute hypoxic respiratory failure secondary to Covid 19 pneumonia and possible bacterial pneumonia. Patient was intubated on September 11. She is status post 1 dose of Remdesivir and 1 dose of Tocilizumab. Continue Ventolin inhaler 4 times daily, Lovenox 30 mg subcu daily, supplements. Status post PEG tube and trach. Continue cefepime. 2. Acute diabetic ketoacidosis secondary to Covid 19 pneumonia, uncontrolled with hyperglycemia. Levemir increased to 35 units twice daily and scheduled NovoLog increased to 7 units every 6 hours and continue NovoLog scale every 6 hours. 3. Metabolic encephalopathy secondary to Covid 19 and DKA. 4. Sepsis and septic shock secondary to Covid 19 pneumonia with multiorgan failure. Continue as in #1. Trach drainage cultured. General surgery to reevaluate trach and wound care consult has been added. 5. Acute metabolic acidosis secondary to acute DKA, Covid 19 and acute kidney injury. Renvela 1600 mg 3 times daily. 6. Diabetes mellitus type 2 uncontrolled with A1c 13.6. Continue as above. 7. Hypophosphatemia status post replacement. 8. Hyperkalemia secondary to DKA, resolved. 9. Sinus tachycardia secondary to sepsis, volume deficiency. Patient is on Cardizem 60 mg 3 times daily, and Lopressor increased to 50 mg twice daily. 10. Acute kidney injury secondary to ATN secondary to Covid 19 and DKA. Continue daily hemodialysis. Permanent dialysis catheter placed. 11. Possible acute gram-negative pneumonia versus MRSA pneumonia. Completed course of antibiotics. 12. Hypertension. 13. Morbid obesity with BMI of 53. 14. Situational depression and anxiety. Seroquel decreased to 50 mg twice daily, Lexapro 10 mg daily added and Xanax 0.25 mg twice daily as needed. 15. DVT prophylaxis. Lovenox. 16. GI prophylaxis. Protonix 40 mg IV push daily. CODE STATUS: Full code Prognosis guarded. DISCHARGE PLAN Residential Acute Care Impression and plan of care have been directed as dictated by the signing physician. Kimberly Boswell nurse practitioner acting as scribe for signing physician. Objective - Vital Signs Vital signs: Vital Signs Temp 99.4 F 10/26/20 08:00 Pulse 124 H 10/26/20 09:00 Resp 32 H 10/26/20 09:00 BP 145/81 10/26/20 09:00 Pulse Ox 90 L 10/26/20 09:00 Intake & Output 10/25/20 10/26/20 10/26/20 18:59 06:59 18:59 Intake Total 1312 762 198 Balance 1312 762 198 Weight 100.4 kg 100.9 kg Intake: IV 140 Cefepime 1 gm In Sodium 100 Chloride 0.9% 50 ml @ 12. 5 mls/hr IVPB Q24H [facility] Rx #:[id number] Sodium Chloride 0.9% 500 40 ml 500 ml @ 10 mls/hr IV .Q24H [facility] Rx#:[id number] Tube Feeding 672 672 168 Blood Product 310 Rc As-1 Unit 310 [id number] Other 190 90 30 Other: Voiding Method Incontinent Incontinent ABP, PAP, CO, CI - Last Documented Arterial Blood Pressure 136/76 - Labs CBC & Chem 7: 10/26/20 04:05 10/26/20 04:05 Labs: Abnormal Lab Results - Last 24 Hours (Table) 10/25/20 10/25/20 10/25/20 Range/Units 10:53 10:58 17:44 RBC (3.80-5.40) m/uL Hgb (11.4-16.0) gm/dL Hct (34.0-46.0) % RDW (11.5-15.5) % Neutrophils # (1.3-7.7) k/uL ABG pCO2 (35-45) mmHg ABG pO2 (83-108) mmHg ABG HCO3 (21-25) mmol/L ABG Total CO2 (19-24) mmol/L ABG O2 Saturation (94-97) % Sodium (137-145) mmol/L BUN (7-17) mg/dL Creatinine (0.52-1.04) mg/dL POC Glucose (mg/dL) 243 H 176 H (75-99) mg/dL Total Protein (6.3-8.2) g/dL Albumin (3.5-5.0) g/dL Crossmatch See Detail 10/25/20 10/26/20 10/26/20 Range/Units 23:47 04:05 04:05 RBC 2.59 L (3.80-5.40) m/uL Hgb 7.3 L (11.4-16.0) gm/dL Hct 22.9 L (34.0-46.0) % RDW 17.3 H (11.5-15.5) % Neutrophils # 8.2 H (1.3-7.7) k/uL ABG pCO2 (35-45) mmHg ABG pO2 (83-108) mmHg ABG HCO3 (21-25) mmol/L ABG Total CO2 (19-24) mmol/L ABG O2 Saturation (94-97) % Sodium 135 L (137-145) mmol/L BUN 45 H (7-17) mg/dL Creatinine 1.94 H (0.52-1.04) mg/dL POC Glucose (mg/dL) 150 H (75-99) mg/dL Total Protein 5.3 L (6.3-8.2) g/dL Albumin 2.6 L (3.5-5.0) g/dL Crossmatch 10/26/20 10/26/20 Range/Units 05:35 05:50 RBC (3.80-5.40) m/uL Hgb (11.4-16.0) gm/dL Hct (34.0-46.0) % RDW (11.5-15.5) % Neutrophils # (1.3-7.7) k/uL ABG pCO2 46 H (35-45) mmHg ABG pO2 59 L* (83-108) mmHg ABG HCO3 30 H (21-25) mmol/L ABG Total CO2 32 H (19-24) mmol/L ABG O2 Saturation 91.4 L (94-97) % Sodium (137-145) mmol/L BUN (7-17) mg/dL Creatinine (0.52-1.04) mg/dL POC Glucose (mg/dL) 117 H (75-99) mg/dL Total Protein (6.3-8.2) g/dL Albumin (3.5-5.0) g/dL Crossmatch Microbiology - Last 24 Hours (Table) 10/22/20 20:55 Gram Stain - Final Sputum Sputum Culture - Final Acinetobacter ivonne/haemol 10/22/20 09:36 Blood Culture - Preliminary Blood No Growth after 72 hours
--- NOTE | 2020-10-26 13:22 | P.PN ---
Subjective Progress Note Date: 10/26/20 Principal diagnosis: Acute hypoxic respiratory failure secondary to COVID-19 pneumonia and ARDS secondary to COVID-19 pneumonia 10/22/2020, I'm seeing the patient for a follow-up. This morning, she is on a Precedex drip at 0.6 micrograms per kilogram per hour.she is awake. She communicates well. She is barely able to move her fingers and toes pH is unable to raise them against gravity. She has profound weakness. Also, the patient is still on mechanical ventilator. She assist-control mode rate of 32 with a tidal volume of 300 and FiO2 of 60% with a PEEP of 10. Blood gases from today showed a pH of 7.38 with a pCO2 of 48 and pO2 of 65. The chest x-ray from today shows no significant interval change in the patient that she is back to Diffuse bilateral pulmonary infiltrates unchanged from yesterday's evaluation. There is some cardiomegaly. No significant orotracheal secretions. On examination she has some scattered rhonchi. Her previous sputum culture was positive for Acinetobacter and the patient is currently on IV cefepime. Her white cell count has dropped in the morning white cell count today is at 13.3. Nevertheless, overnight, the patient had spikes of temperature with a T-max of 11.3. Repeat cultures will be done accordingly. The patient is currently off steroids. The patient's is slightly tachycardic and we have started on oral Cardizem for rate control. She is in sinus tachycardia. She is also slightly tachypneic. She is uncertain 400 mg by mouth twice a day. No other significant events overnight. He is tolerating her enteral feeding for nutritional support. Her last bout of dialysis was yesterday. Her volume status is improved considerably.She is post prolonged respiratory failure due to COVID-19 related ARDS/pneumonia.the blood sugars are slightly elevated. he is currently off Decadron and increased the Levemir dose for a tighter blood sugar control.I made an adjustment and increase her Levemir insulin up to 30 units once a day along with a slight scale coverage. Patient was reevaluated today on 10/23/2020, patient remains in ICU remains intubated and mechanically ventilated. Patient is on volume control plus rate of 300,And I increased the volume up to 350. She is on rate of 32FiO2 was increased to 65% PEEP remains at 10 EGD this morning showed a pO2 of 60 pCO2 of 50 pH of 7.32. Patient is off all narcotics and paralytics, she is however on Precedex at 0.4 mcg/kg/m. She is still receiving tube feeding via PEG tube. She is on vital AF at 56 mL/hour. Patient did not receive hemodialysis yesterday, however she is scheduled to have hemodialysis today. Remains tachycardic, but hemodynamically stable not requiring pressors at this point. Patient is on Cardizem to control her sinus tachycardia. Chest x-ray continues to show evidence of bilateral interstitial infiltrates secondary to ARDS and s uspect some component of fluid overload secondary to renal failure. No dialysis was done yesterday. Her peak airway pressure is 30 . WBC count is 16 hemoglobin is 7.2 platelets are 2086 metabolic profile is normal except BUN of 62 creatinine 2.43. Blood sugar is 327 remains on cefepime at 1 g every 24 hours. Patient is also on Lovenox at 30 mg subcu daily. She is also on Seroquel at 100 twice a day. Protonix 40 mg IV push daily. Patient was reevaluated today on 10/24/2020, remains in the ICU, intubated and mechanically ventilated. Patient is on assist control rate of 3 to tidal volume of 350 and I increased that up to 375 patient had a bit of a cough leak. She is on 60% FiO2 and PEEP is at 10 and I cut it down to 8. Last ABG this morning on 60% showed a pO2 of 66 pCO2 of 54 pH of 7.33. Patient remains on hemodialysis, yesterday she had 4 L off. Last night she had an episode of nonsustained ventricular tachycardia without any symptoms. She had a relatively normal labs. Patient remains on tube feeding using vital AF, at goal 56 mL per hour. On the ventilator, patient seems to be a bit tachypneic, her peak airway pressure is 30 5O pressure is 24. Chest x-ray continues to show bilateral interstitial infiltrates. CBC today is relatively normal hemoglobin is 7.6. Basic metabolic profile is normal. BUN is 54 creatinine 2.01 Reevaluated today on 10/25/2020, remains intubated and mechanically ventilated. Patient is now on assist control rate of 32. FiO2 of 55% but I increased it up to 60%. PEEP is at 8 and remains at 8. The volume is 375. No ABG done today, patient is about to receive hemodialysis today. She had 4 L of fluids removed by hemodialysis yesterday. Patient is to receive 1 unit of packed RBCs today for a hemoglobin of 6.3. This will be given during her hemodialysis today. Chest x-ray is showing worsening bilateral interstitial edema and possibly underlying ARDS. Patient remains on enteral feeding using vital AF at 56 mL per hour. Patient remained generally weak, and obviously she has severe critical illness polyneuropathy and polymyopathy. All labs were reviewed today. Again she has WBC of 12.2 hemoglobin 6.3 electrolytes are normal BUN is 48 creatinine is 1.99. Sputum from 10/30 showing gram-negative bacilli, previously she had a Citrobacter, and she remains on cefepime. Patient was reevaluated today on 10/26/2020, patient remains in the ICU, remains intubated and mechanically ventilated. Patient is presently undergoing hemodialysis. She is on assist control rate of 32.tidal volume is 375 FiO2 is 50% and PEEP is 8. ABG showed a pO2 of 60 pCO2 46 pH of 7.43. Chest x-ray continues to show bilateral interstitial infiltrates and ARDS. Possibly interstitial edema. Patient remains on enteral feeding using vital AF at 56 mL per hour. Remains on cefepime. Remains on hemodialysis daily. She is hemodynamically stable not requiring any pressors. Patient has severe critical illness polyneuropathy and myopathy, unable to wean the and her ABG remains marginal. Physical therapy is evaluating the patient. And we are in the process of considering eventually sending the patient to LTAC. Electrolytes are normal BUN is 45 creatinine is 1.94 CBC is relatively normal hemoglobin is 7.3. Objective - Vital Signs Vital signs: Vital Signs Temp 99.2 F 10/26/20 11:03 Pulse 128 H 10/26/20 11:03 Resp 37 H 10/26/20 11:03 BP 149/79 10/26/20 11:03 Pulse Ox 93 L 10/26/20 11:00 Intake & Output 10/25/20 10/26/20 10/26/20 18:59 06:59 18:59 Intake Total 1312 762 310 Output Total 4000 Balance 1312 762 3690 Weight 100.4 kg 100.9 kg Intake: IV 140 Cefepime 1 gm In Sodium 100 Chloride 0.9% 50 ml @ 12. 5 mls/hr IVPB Q24H [facility] Rx #:[id number] Sodium Chloride 0.9% 500 40 ml 500 ml @ 10 mls/hr IV .Q24H [facility] Rx#:[id number] Tube Feeding 672 672 280 Blood Product 310 Rc As-1 Unit 310 [id number] Other 190 90 30 Output: Hemodialysis 4000 Other: Voiding Method Incontinent Incontinent ABP, PAP, CO, CI - Last Documented Arterial Blood Pressure 136/76 - Exam GENERAL EXAM: Revealed a 35-year-old female, obese, on mechanical ventilation, profoundly weak, more awake today, compared to yesterday. and follows simple instructions. HEAD: Normocephalic/atraumatic. Tracheostomy is intact. Minimal cuff leak is noted. Recommended reevaluation of the tracheostomy site by general surgery, s eems to be endurated/gaping EENT: PERRLA, EOMI, nonicteric, no neck masses, no JVD, CHEST: No chest wall deformity. Symmetrical expansion. LUNGS: Crackles and rhonchi bilaterally CVS: normal S1 and S2, no S3 gallop, no murmur. ABDOMEN: Obese soft nontender no megaly no rebound no guarding. PEG tube is intact. EXTREMITIES: No clubbing, 1+ bipedal edema, no cyanosis, 2+ pulses and upper and lower extremities. Psychiatric: Awake, less anxious today, follows all instructions. But she is generally weak SKIN: No rashes CENTRAL NERVOUS SYSTEM: Profound weakness noted bilaterally. Alert, oriented, no gross focal deficit other than profound weakness - Labs CBC & Chem 7: 10/26/20 04:05 10/26/20 04:05 Labs: Abnormal Lab Results - Last 24 Hours (Table) 10/25/20 10/25/20 10/25/20 Range/Units 10:53 17:44 23:47 RBC (3.80-5.40) m/uL Hgb (11.4-16.0) gm/dL Hct (34.0-46.0) % RDW (11.5-15.5) % Neutrophils # (1.3-7.7) k/uL ABG pCO2 (35-45) mmHg ABG pO2 (83-108) mmHg ABG HCO3 (21-25) mmol/L ABG Total CO2 (19-24) mmol/L ABG O2 Saturation (94-97) % Sodium (137-145) mmol/L BUN (7-17) mg/dL Creatinine (0.52-1.04) mg/dL POC Glucose (mg/dL) 176 H 150 H (75-99) mg/dL Creatine Kinase (30-135) U/L Total Protein (6.3-8.2) g/dL Albumin (3.5-5.0) g/dL Crossmatch See Detail 10/26/20 10/26/20 10/26/20 Range/Units 04:05 04:05 04:05 RBC 2.59 L (3.80-5.40) m/uL Hgb 7.3 L (11.4-16.0) gm/dL Hct 22.9 L (34.0-46.0) % RDW 17.3 H (11.5-15.5) % Neutrophils # 8.2 H (1.3-7.7) k/uL ABG pCO2 (35-45) mmHg ABG pO2 (83-108) mmHg ABG HCO3 (21-25) mmol/L ABG Total CO2 (19-24) mmol/L ABG O2 Saturation (94-97) % Sodium 135 L (137-145) mmol/L BUN 45 H (7-17) mg/dL Creatinine 1.94 H (0.52-1.04) mg/dL POC Glucose (mg/dL) (75-99) mg/dL Creatine Kinase 25 L (30-135) U/L Total Protein 5.3 L (6.3-8.2) g/dL Albumin 2.6 L (3.5-5.0) g/dL Crossmatch 10/26/20 10/26/20 10/26/20 Range/Units 05:35 05:50 11:43 RBC (3.80-5.40) m/uL Hgb (11.4-16.0) gm/dL Hct (34.0-46.0) % RDW (11.5-15.5) % Neutrophils # (1.3-7.7) k/uL ABG pCO2 46 H (35-45) mmHg ABG pO2 59 L* (83-108) mmHg ABG HCO3 30 H (21-25) mmol/L ABG Total CO2 32 H (19-24) mmol/L ABG O2 Saturation 91.4 L (94-97) % Sodium (137-145) mmol/L BUN (7-17) mg/dL Creatinine (0.52-1.04) mg/dL POC Glucose (mg/dL) 117 H 194 H (75-99) mg/dL Creatine Kinase (30-135) U/L Total Protein (6.3-8.2) g/dL Albumin (3.5-5.0) g/dL Crossmatch Microbiology - Last 24 Hours (Table) 10/22/20 09:36 Blood Culture - Preliminary Blood No Growth after 96 hours 10/22/20 20:55 Gram Stain - Final Sputum Sputum Culture - Final Acinetobacter ivonne/haemol Assessment and Plan Assessment: Impression: Acute hypoxic respiratory failure secondary to COVID-19 pneumonia and ARDS secondary to COVID-19 pneumonia, patient was transferred to the ICU on 09/11, intubated on 09/11, received REM on 09/11, received T OCI on 09/11, tracheostomy and PEG tube placement on 09/18 remains on mechanical ventilation with volume control plus mode 375, tidal volume, FiO2 50% PEEP of 8 rate of 32 Acute kidney injury with complete shutdown of urine output/anuria, requiring hemodialysis. Remains on hemodialysis Acute diabetic ketoacidosis and COVID-19 pneumonia on her initial presentation. Sepsis secondary to COVID-19 pneumonia Type 2 diabetes poorly controlled. Hemoglobin A1c of 13.6. Elevated inflammatory markers secondary to acute COVID-19 pneumonia History of hypertension. Generalized anxiety disorder. Morbid obesity BMI of 54.2. Status post tracheostomy and PEG tube placement on 09/18. Corneal injury, punctate keratitis left eye. Acinetobacter in sputum, patient remains on cefepime. Critical illness polyneuropathy and myopathy Episodic fever, presently under control. Non sustained ventricular tachycardia. Recommendation: Continue ventilatory support. As noted above. Continue physical therapy. Continue insulin and adjust dose accordingly. Continue Seroquel. Continue cefepime for Acinetobacter infection. Noted again in the sputum cul tures. Continue dialysis as per nephrology on the case. Continue Lovenox 30 mg subcu daily Continue nutritional support. Enteral feeding via PEG tube. Patient is up to goal. Continue GI and DVT prophylaxis. Prognosis remains guarded and the patient is critical. Critical care time is over 30 minutes Not quite ready to transfer to LTAC at this point but that would be considered soon. Time with Patient: Greater than 30
--- NOTE | 2020-10-26 14:10 | P.CONS ---
History of Present Illness - Reason for Consult Consult date: 10/26/20 wound care - History of Present Illness This is 35-year-old patient being seen by the wound care center in ICU for nonhealing ulcerations to the trach site. Patient has multiple open ulcerations to the trach site including one that is communicating to the trach. At this time absorptive silver is in place. Ulcerations show granulation throughout the wound bed with minimal slough. Periwound shows excoriation and maceration. Patient's past medical history is significant for diabetes. Lifelong nonsmoker. Review of systems: Unable to obtain due to trach Physical exam: Physical exam: General Appearance: Alert, cooperative, no distress, appears stated age. Skin: See HPI all other Skin color, texture, tugor normal, no rashes or lesions. Neurologic: Alert oriented x3 Assessment: 1. Nonhealing ulceration to trach site with fat layer exposure 2. Diabetes with skin ulcer Plan: 1. absorptive silver rope to open ulceration. Moistened. Change Friday. Initial recommendation would be triad to help protect the skin and decreased the amount of further breakdown. Thank you kindly for the consulation. DNP note has been reviewed and discussed with Dr. Rosas and the impression and plan of care has been directed as dictated. Past Medical History Past Medical History: Diabetes Mellitus History of Any Multi-Drug Resistant Organisms: None Reported Past Surgical History: Section, Tubal Ligation Past Psychological History: No Psychological Hx Reported Smoking Status: Never smoker Past Alcohol Use History: Occasional Past Drug Use History: None Reported Medications and Allergies Home Medications Medication Instructions Recorded Confirmed Type metFORMIN HCL 1,000 mg PO BID 09/10/20 09/10/20 History sitaGLIPtin PHOSPHATE [Januvia] 100 mg PO DAILY 09/10/20 09/10/20 History Allergies Allergy/AdvReac Type Severity Reaction Status Date / Time No Known Allergies Allergy Verified 09/10/20 15:23 Physical Exam Vitals: Vital Signs Temp Pulse Pulse Resp BP BP Pulse Ox 10/26/20 11:03 99.2 F 128 H 37 H 149/79 10/26/20 11:00 126 H 22 148/83 93 L 10/26/20 10:00 115 H 31 H 158/95 92 L 10/26/20 09:00 124 H 32 H 145/81 90 L 10/26/20 08:00 99.4 F 122 H 30 H 180/104 87 L 10/26/20 07:00 122 H 30 H 148/89 92 L 10/26/20 06:00 118 H 28 H 154/87 92 L 10/26/20 05:00 129 H 34 H 168/81 92 L 10/26/20 04:00 99.1 F 116 H 32 H 160/102 90 L 10/26/20 03:00 116 H 33 H 148/96 95 10/26/20 02:00 117 H 34 H 156/91 90 L 10/26/20 01:00 117 H 31 H 141/82 94 L 10/26/20 00:00 99.1 F 133 H 36 H 121/64 99 10/25/20 23:00 120 H 31 H 130/69 98 10/25/20 22:01 121 H 32 H 161/100 94 L 10/25/20 22:00 116 H 25 H 161/100 94 L 10/25/20 21:00 123 H 32 H 154/90 99 10/25/20 20:00 98.5 F 122 H 32 H 145/80 97 10/25/20 19:00 122 H 33 H 146/93 99 10/25/20 18:00 120 H 33 H 145/83 98 10/25/20 17:00 135 H 32 H 98 10/25/20 16:00 98.9 F 140 H 26 H 148/91 97 10/25/20 15:00 129 H 32 H 159/95 98 10/25/20 14:10 98.9 F 129 H 32 H 151/91 98 10/25/20 14:00 128 H 29 H 151/95 98 Intake and Output 10/25/20 10/26/20 10/26/20 22:59 06:59 14:59 Intake Total 508 508 310 Output Total 4000 Balance 508 508 -9030 Intake: Tube Feeding 448 448 280 Other 60 60 30 Output: Hemodialysis 4000 Other: Voiding Method Incontinent Incontinent Weight 100.9 kg Results CBC & Chem 7: 10/26/20 04:05 10/26/20 04:05 Labs: Abnormal Lab Results - Last 24 Hours (Table) 10/25/20 10/25/20 10/25/20 Range/Units 10:53 17:44 23:47 RBC (3.80-5.40) m/uL Hgb (11.4-16.0) gm/dL Hct (34.0-46.0) % RDW (11.5-15.5) % Neutrophils # (1.3-7.7) k/uL ABG pCO2 (35-45) mmHg ABG pO2 (83-108) mmHg ABG HCO3 (21-25) mmol/L ABG Total CO2 (19-24) mmol/L ABG O2 Saturation (94-97) % Sodium (137-145) mmol/L BUN (7-17) mg/dL Creatinine (0.52-1.04) mg/dL POC Glucose (mg/dL) 176 H 150 H (75-99) mg/dL Creatine Kinase (30-135) U/L Total Protein (6.3-8.2) g/dL Albumin (3.5-5.0) g/dL Crossmatch See Detail 10/26/20 10/26/20 10/26/20 Range/Units 04:05 04:05 04:05 RBC 2.59 L (3.80-5.40) m/uL Hgb 7.3 L (11.4-16.0) gm/dL Hct 22.9 L (34.0-46.0) % RDW 17.3 H (11.5-15.5) % Neutrophils # 8.2 H (1.3-7.7) k/uL ABG pCO2 (35-45) mmHg ABG pO2 (83-108) mmHg ABG HCO3 (21-25) mmol/L ABG Total CO2 (19-24) mmol/L ABG O2 Saturation (94-97) % Sodium 135 L (137-145) mmol/L BUN 45 H (7-17) mg/dL Creatinine 1.94 H (0.52-1.04) mg/dL POC Glucose (mg/dL) (75-99) mg/dL Creatine Kinase 25 L (30-135) U/L Total Protein 5.3 L (6.3-8.2) g/dL Albumin 2.6 L (3.5-5.0) g/dL Crossmatch 10/26/20 10/26/20 10/26/20 Range/Units 05:35 05:50 11:43 RBC (3.80-5.40) m/uL Hgb (11.4-16.0) gm/dL Hct (34.0-46.0) % RDW (11.5-15.5) % Neutrophils # (1.3-7.7) k/uL ABG pCO2 46 H (35-45) mmHg ABG pO2 59 L* (83-108) mmHg ABG HCO3 30 H (21-25) mmol/L ABG Total CO2 32 H (19-24) mmol/L ABG O2 Saturation 91.4 L (94-97) % Sodium (137-145) mmol/L BUN (7-17) mg/dL Creatinine (0.52-1.04) mg/dL POC Glucose (mg/dL) 117 H 194 H (75-99) mg/dL Creatine Kinase (30-135) U/L Total Protein (6.3-8.2) g/dL Albumin (3.5-5.0) g/dL Crossmatch Microbiology - Last 24 Hours (Table) 10/22/20 09:36 Blood Culture - Preliminary Blood No Growth after 96 hours 10/22/20 20:55 Gram Stain - Final Sputum Sputum Culture - Final Acinetobacter ivonne/haemol Assessment and Plan (1) Non-pressure chronic ulcer of skin of other sites with fat layer exposed Current Visit: Yes Status: Acute Code(s): L98.492 - NON-PRS CHRONIC ULCER OF SKIN OF SITES W FAT LAYER EXPOSED SNOMED Code(s): 68215946 (2) Diabetes with skin ulcer Current Visit: Yes Status: Acute Code(s): E11.622 - TYPE 2 DIABETES MELLITUS WITH OTHER SKIN ULCER; L98.499 - NON-PRESSURE CHRONIC ULCER OF SKIN OF SITES W UNSP SEVERITY SNOMED Code(s): 65308630
[2020-10-26] MEDS: HYDROPHILIC CREAM 180 GM TUBE TOPICAL SCH (14:39)
[2020-10-26] MEDS: CEFEPIME 1 GM in SODIUM CHLORIDE 0.9% 50 ML IVPB SCH (14:55)
[2020-10-26] MEDS: NYSTATIN 100,000 UNIT/GM POWD 15 GM TOPICAL SCH ×2 (16:20→21:16)
[2020-10-26 16:58] LABS: Glucose,Whole Blood 167 mg/dL (75-99)
[2020-10-26] MEDS: METOPROLOL TARTRATE 50 MG TAB PO SCH (21:14)
[2020-10-26] MEDS: QUEtiapine 50 MG TAB PO SCH (21:15)
[2020-10-26 21:30] LABS: Glucose,Whole Blood 202 mg/dL (75-99)
[2020-10-26 23:34] LABS: Glucose,Whole Blood 204 mg/dL (75-99)
[2020-10-27] MEDS: SEVELAMER 800 MG TAB PO SCH ×5 (00:12→23:41)
[2020-10-27 05:29] LABS: Anisocytosis Slight; Basophils % (A) 0 %; Eosinophils # (A) 0.4 k/uL (0-0.7); Eosinophils % (A) 3 %; HCT 25.1 % (34.0-46.0); HGB 8.2 gm/dL (11.4-16.0); Hypochromasia Moderate; Lymphocytes # (A) 1.1 k/uL (1.0-4.8); Lymphocytes % (A) 10 %; MCH 28.7 pg (25.0-35.0); MCHC 32.8 g/dL (31.0-37.0); MCV 87.6 fL (80.0-100.0); Mean Platelet Volume 9.5; Monocytes # (A) 0.7 k/uL (0-1.0); Monocytes % (A) 6 %; Neutrophils % (A) 79 %; Platelet Count 218 k/uL (150-450); Poikilocytosis Slight; RBC 2.86 m/uL (3.80-5.40); RDW 16.9 % (11.5-15.5); WBC 11.4 k/uL (3.8-10.6)
[2020-10-27 05:39] LABS: Calcium 9.8 mg/dL (8.4-10.2); Potassium 4.1 mmol/L (3.5-5.1)
[2020-10-27 06:15] LABS: Glucose,Whole Blood 196 mg/dL (75-99)
[2020-10-27] MEDS: NYSTATIN 100,000 UNIT/ML SUSP 500,000 UNIT/5 ML CUP PO SCH ×4 (06:20→23:41)
[2020-10-27] MEDS: HYDROmorphone 0.5 MG/0.5 ML SYRINGE IVP PRN ×4 (06:20→23:41)
[2020-10-27] MEDS: INSULIN DETEMIR (LEVEMIR) 100 UNIT/ML SYR SQ SCH ×2 (06:22→20:06)
[2020-10-27] MEDS: INSULIN ASPART (NovoLOG) 100 UNIT/ML VIAL SQ SCH ×7 (06:22→23:43)
[2020-10-27] MEDS: ALBUTEROL HFA INHALER INHALATION SCH ×4 (07:49→19:32)
--- NOTE | 2020-10-27 08:11 | XR ---
EXAMINATION TYPE: XR chest 1V portable DATE OF EXAM: 10/27/2020 COMPARISON: 10/26/2020 INDICATION: Short of breath TECHNIQUE: Single frontal view of the chest is obtained. FINDINGS: The heart size is moderately prominent. The pulmonary vasculature is prominent. Diffuse increased lung markings are present. This is increasing in the left upper lobe. Double-lumen catheter is on the right with the tips in the superior vena cava. Tracheostomy tube is in the midline IMPRESSION: 1. Cardiomegaly prominent pulmonary vascular markings and increasing infiltrate compatible with conge stive heart failure.
[2020-10-27] MEDS: QUEtiapine 50 MG TAB PO SCH (08:29)
[2020-10-27] MEDS: CHLORHEXIDINE GLUCONATE 15 ML CUP MUCOUS MEM SCH ×2 (08:29→20:07)
[2020-10-27] MEDS: METOPROLOL TARTRATE 50 MG TAB PO SCH ×2 (08:29→20:06)
[2020-10-27] MEDS: CHOLECALCIFEROL 25 MCG (1000 IU) TABLET PO SCH (08:29)
[2020-10-27] MEDS: ASCORBIC ACID 500 MG TAB PO SCH ×2 (08:29→20:06)
[2020-10-27] MEDS: PANTOPRAZOLE 40 MG/10 ML VIAL IVP SCH (08:30)
[2020-10-27] MEDS: ENOXAPARIN 30 MG/0.3 ML SYRINGE SQ SCH (08:30)
[2020-10-27] MEDS: DILTIAZEM ORAL 60 MG TAB PO SCH ×3 (08:30→20:07)
[2020-10-27] MEDS: ESCITALOPRAM 10 MG TAB PO SCH (08:31)
[2020-10-27] MEDS: NYSTATIN 100,000 UNIT/GM POWD 15 GM TOPICAL SCH ×3 (08:31→20:07)
[2020-10-27] MEDS: HYDROPHILIC CREAM 180 GM TUBE TOPICAL SCH (08:32)
--- NOTE | 2020-10-27 09:19 | P.PN ---
Subjective Patient is seen in follow-up for acute kidney injury. Oliguric. Status post tracheostomy and PEG tube placement this admission. Receiving tube feeding. Currently on 50% FiO2. No changes overnight. Vital signs: Stable. General: The patient appeared well nourished and normally developed. HEENT: Tracheostomy noted. LUNGS: Breath sounds decreased. HEART: Regular rate and rhythm. Abdomen: Soft, no distention. EXTREMITITES: 1+ edema. Objective - Vital Signs Vital signs: Vital Signs Temp 99.3 F 10/27/20 08:00 Pulse 120 H 10/27/20 09:00 Resp 25 H 10/27/20 09:00 BP 155/90 10/27/20 09:00 Pulse Ox 91 L 10/27/20 09:00 Intake & Output 10/26/20 10/27/20 10/27/20 18:59 06:59 18:59 Intake Total 862 882 96 Output Total 7300 0 0 Balance -6438 882 96 Weight 98.6 kg Intake: IV 100 120 10 0.9 Normal Saline @ KVO 120 10 Cefepime 1 gm In Sodium 100 Chloride 0.9% 50 ml @ 12. 5 mls/hr IVPB Q24H [facility] Rx #:[id number] Tube Feeding 672 672 56 Other 90 90 30 Output: Urine 0 0 Stool 3300 Hemodialysis 4000 Other: Voiding Method Incontinent Incontinent # Bowel Movements 1 ABP, PAP, CO, CI - Last Documented Arterial Blood Pressure 136/76 - Labs CBC & Chem 7: 10/27/20 05:00 10/27/20 05:00 Labs: Abnormal Lab Results - Last 24 Hours (Table) 10/26/20 10/26/20 10/26/20 Range/Units 04:05 11:43 16:56 WBC (3.8-10.6) k/uL RBC (3.80-5.40) m/uL Hgb (11.4-16.0) gm/dL Hct (34.0-46.0) % RDW (11.5-15.5) % Neutrophils # (1.3-7.7) k/uL Sodium (137-145) mmol/L Chloride (98-107) mmol/L Carbon Dioxide (22-30) mmol/L BUN (7-17) mg/dL Creatinine (0.52-1.04) mg/dL Glucose (74-99) mg/dL POC Glucose (mg/dL) 194 H 167 H (75-99) mg/dL Creatine Kinase 25 L (30-135) U/L 10/26/20 10/26/20 10/27/20 Range/Units 21:29 23:32 05:00 WBC 11.4 H (3.8-10.6) k/uL RBC 2.86 L (3.80-5.40) m/uL Hgb 8.2 L (11.4-16.0) gm/dL Hct 25.1 L (34.0-46.0) % RDW 16.9 H (11.5-15.5) % Neutrophils # 9.0 H (1.3-7.7) k/uL Sodium (137-145) mmol/L Chloride (98-107) mmol/L Carbon Dioxide (22-30) mmol/L BUN (7-17) mg/dL Creatinine (0.52-1.04) mg/dL Glucose (74-99) mg/dL POC Glucose (mg/dL) 202 H 204 H (75-99) mg/dL Creatine Kinase (30-135) U/L 10/27/20 10/27/20 Range/Units 05:00 06:13 WBC (3.8-10.6) k/uL RBC (3.80-5.40) m/uL Hgb (11.4-16.0) gm/dL Hct (34.0-46.0) % RDW (11.5-15.5) % Neutrophils # (1.3-7.7) k/uL Sodium 136 L (137-145) mmol/L Chloride 97 L (98-107) mmol/L Carbon Dioxide 31 H (22-30) mmol/L BUN 47 H (7-17) mg/dL Creatinine 1.97 H (0.52-1.04) mg/dL Glucose 171 H (74-99) mg/dL POC Glucose (mg/dL) 196 H (75-99) mg/dL Creatine Kinase (30-135) U/L Microbiology - Last 24 Hours (Table) 10/22/20 09:36 Blood Culture - Preliminary Blood No Growth after 96 hours 10/22/20 20:55 Gram Stain - Final Sputum Sputum Culture - Final Acinetobacter ivonne/haemol Assessment and Plan Plan: Assessment: 1. Acute kidney injury secondary to ATN secondary to COVID-19 and DKA. Baseline creatinine is near 1. Started on hemodialysis on September 14. Has p-cath. Oliguric. No hydronephrosis noted on kidney ultrasound. 2. DKA s/p insulin drip and IV fluids. 3. Acute hypoxic respiratory failure secondary to COVID-19 pneumonia. Status post tracheostomy this admission. 4. Metabolic acidosis secondary to acute kidney injury and DKA s/p bicarb drip. Improved postdialysis. 5. Hyponatremia, hypervolemic. Stable. 6. Hyperphosphatemia secondary to acute kidney injury. Maintained on Renvela. 7. Anemia of chronic illness and kidney disease. Maintained on Aranesp. Iron deficiency noted - s/p iv iron. Status post blood transfusion this admission. 8. Fluid overload. Improving with daily ultrafiltration. Plan: Continue with daily dialysis. Maintain tube feeds. Avoid nephrotoxins. Continue to monitor renal function and urine output. Monitor for renal recovery. Wean FiO2.
[2020-10-27 11:32] LABS: Glucose,Whole Blood 129 mg/dL (75-99)
--- NOTE | 2020-10-27 12:19 | P.PN ---
Subjective Progress Note Date: 10/27/20 Principal diagnosis: Acute hypoxic respiratory failure secondary to COVID-19 pneumonia and ARDS secondary to COVID-19 pneumonia 10/22/2020, I'm seeing the patient for a follow-up. This morning, she is on a Precedex drip at 0.6 micrograms per kilogram per hour.she is awake. She communicates well. She is barely able to move her fingers and toes pH is unable to raise them against gravity. She has profound weakness. Also, the patient is still on mechanical ventilator. She assist-control mode rate of 32 with a tidal volume of 300 and FiO2 of 60% with a PEEP of 10. Blood gases from today showed a pH of 7.38 with a pCO2 of 48 and pO2 of 65. The chest x-ray from today shows no significant interval change in the patient that she is back to Diffuse bilateral pulmonary infiltrates unchanged from yesterday's evaluation. There is some cardiomegaly. No significant orotracheal secretions. On examination she has some scattered rhonchi. Her previous sputum culture was positive for Acinetobacter and the patient is currently on IV cefepime. Her white cell count has dropped in the morning white cell count today is at 13.3. Nevertheless, overnight, the patient had spikes of temperature with a T-max of 11.3. Repeat cultures will be done accordingly. The patient is currently off steroids. The patient's is slightly tachycardic and we have started on oral Cardizem for rate control. She is in sinus tachycardia. She is also slightly tachypneic. She is uncertain 400 mg by mouth twice a day. No other significant events overnight. He is tolerating her enteral feeding for nutritional support. Her last bout of dialysis was yesterday. Her volume status is improved considerably.She is post prolonged respiratory failure due to COVID-19 related ARDS/pneumonia.the blood sugars are slightly elevated. he is currently off Decadron and increased the Levemir dose for a tighter blood sugar control.I made an adjustment and increase her Levemir insulin up to 30 units once a day along with a slight scale coverage. Patient was reevaluated today on 10/23/2020, patient remains in ICU remains intubated and mechanically ventilated. Patient is on volume control plus rate of 300,And I increased the volume up to 350. She is on rate of 32FiO2 was increased to 65% PEEP remains at 10 EGD this morning showed a pO2 of 60 pCO2 of 50 pH of 7.32. Patient is off all narcotics and paralytics, she is however on Precedex at 0.4 mcg/kg/m. She is still receiving tube feeding via PEG tube. She is on vital AF at 56 mL/hour. Patient did not receive hemodialysis yesterday, however she is scheduled to have hemodialysis today. Remains tachycardic, but hemodynamically stable not requiring pressors at this point. Patient is on Cardizem to control her sinus tachycardia. Chest x-ray continues to show evidence of bilateral interstitial infiltrates secondary to ARDS and s uspect some component of fluid overload secondary to renal failure. No dialysis was done yesterday. Her peak airway pressure is 30 . WBC count is 16 hemoglobin is 7.2 platelets are 2086 metabolic profile is normal except BUN of 62 creatinine 2.43. Blood sugar is 327 remains on cefepime at 1 g every 24 hours. Patient is also on Lovenox at 30 mg subcu daily. She is also on Seroquel at 100 twice a day. Protonix 40 mg IV push daily. Patient was reevaluated today on 10/24/2020, remains in the ICU, intubated and mechanically ventilated. Patient is on assist control rate of 3 to tidal volume of 350 and I increased that up to 375 patient had a bit of a cough leak. She is on 60% FiO2 and PEEP is at 10 and I cut it down to 8. Last ABG this morning on 60% showed a pO2 of 66 pCO2 of 54 pH of 7.33. Patient remains on hemodialysis, yesterday she had 4 L off. Last night she had an episode of nonsustained ventricular tachycardia without any symptoms. She had a relatively normal labs. Patient remains on tube feeding using vital AF, at goal 56 mL per hour. On the ventilator, patient seems to be a bit tachypneic, her peak airway pressure is 30 5O pressure is 24. Chest x-ray continues to show bilateral interstitial infiltrates. CBC today is relatively normal hemoglobin is 7.6. Basic metabolic profile is normal. BUN is 54 creatinine 2.01 Reevaluated today on 10/25/2020, remains intubated and mechanically ventilated. Patient is now on assist control rate of 32. FiO2 of 55% but I increased it up to 60%. PEEP is at 8 and remains at 8. The volume is 375. No ABG done today, patient is about to receive hemodialysis today. She had 4 L of fluids removed by hemodialysis yesterday. Patient is to receive 1 unit of packed RBCs today for a hemoglobin of 6.3. This will be given during her hemodialysis today. Chest x-ray is showing worsening bilateral interstitial edema and possibly underlying ARDS. Patient remains on enteral feeding using vital AF at 56 mL per hour. Patient remained generally weak, and obviously she has severe critical illness polyneuropathy and polymyopathy. All labs were reviewed today. Again she has WBC of 12.2 hemoglobin 6.3 electrolytes are normal BUN is 48 creatinine is 1.99. Sputum from 10/30 showing gram-negative bacilli, previously she had a Citrobacter, and she remains on cefepime. Patient was reevaluated today on 10/26/2020, patient remains in the ICU, remains intubated and mechanically ventilated. Patient is presently undergoing hemodialysis. She is on assist control rate of 32.tidal volume is 375 FiO2 is 50% and PEEP is 8. ABG showed a pO2 of 60 pCO2 46 pH of 7.43. Chest x-ray continues to show bilateral interstitial infiltrates and ARDS. Possibly interstitial edema. Patient remains on enteral feeding using vital AF at 56 mL per hour. Remains on cefepime. Remains on hemodialysis daily. She is hemodynamically stable not requiring any pressors. Patient has severe critical illness polyneuropathy and myopathy, unable to wean the and her ABG remains marginal. Physical therapy is evaluating the patient. And we are in the process of considering eventually sending the patient to LTAC. Electrolytes are normal BUN is 45 creatinine is 1.94 CBC is relatively normal hemoglobin is 7.3. Reevaluated today on 10/27/2020, patient remains in the ICU, remains intubated and mechanically ventilated, patient is being ventilated via tracheostomy. She is on assist control rate of 32. Tidal volume of 375 FiO2 50% and PEEP is at 8. Chest x-ray continues to show evidence of interstitial edema and ARDS. Patient is scheduled to have hemodialysis again today. Patient is awake, generally weak and profoundly weak, follows simple instructions, desaturates easily with minimal coughing or any activity. Chest x-ray is showing improvement but nowhere near clearing. Patient is on enteral feeding, she is receiving vital AF at 56 mL per hour. Yesterday I consulted surgery to evaluate the tracheostomy site, apparently the surgeon who performed the tracheostomy is not available, and I'm recommending ENT evaluation and I'm wondering if the patient would require tracheoplasty. Patient will be given a trial of pressure support of 14 and CPAP today. She will be dialyzed today. She remains on cefepime. And she remains on multiple meds as listed below. Including cardiac meds and antibiotics/cefepime. W see count today is 11.4 hemoglobin is 8.2 electrolytes are normal BUN is 47 creatinine is 1.97 Objective - Vital Signs Vital signs: Vital Signs Temp 98.4 F 10/27/20 12:00 Pulse 97 10/27/20 12:00 Resp 19 10/27/20 12:00 BP 128/85 10/27/20 12:00 Pulse Ox 94 L 10/27/20 12:00 Intake & Output 10/26/20 10/27/20 10/27/20 18:59 06:59 18:59 Intake Total 862 882 450 Output Total 7300 0 0 Balance -6438 882 450 Weight 98.6 kg 98.6 kg Intake: IV 100 120 50 0.9 Normal Saline @ KVO 120 50 Cefepime 1 gm In Sodium 100 Chloride 0.9% 50 ml @ 12. 5 mls/hr [facility]PB [facility] Rx #:[id number] Tube Feeding 672 672 280 Other 90 90 120 Output: Urine 0 0 Stool 3300 Hemodialysis 4000 Other: Voiding Method Incontinent Incontinent # Bowel Movements 1 ABP, PAP, CO, CI - Last Documented Arterial Blood Pressure 136/76 - Exam GENERAL EXAM: Revealed a 35-year-old female, obese, on mechanical ventilation, awake, pleasant, follows simple instructions but generally weak. HEAD: Normocephalic/atraumatic. Tracheostomy is intact. Minimal cuff leak is noted. EENT: PERRLA, EOMI, nonicteric, no neck masses, no JVD, CHEST: No chest wall deformity. Symmetrical expansion. LUNGS: Crackles and rhonchi bilaterally, no change CVS: normal S1 and S2, no S3 gallop, no murmur. ABDOMEN: Obese soft nontender no megaly no rebound no guarding. PEG tube is intact. EXTREMITIES: No clubbing, 1+ bipedal edema, no cyanosis, 2+ pulses and upper and lower extremities. Psychiatric: Awake, anxious mood, blunt affect. Normal mental status examination SKIN: No rashes, however the tracheostomy site seems to be concerning being white, necrotic, and may need ENT evaluation CENTRAL NERVOUS SYSTEM: Profound weakness noted bilaterally. Alert, oriented, no gross focal deficit other than profound weakness - Labs CBC & Chem 7: 10/27/20 05:00 10/27/20 05:00 Labs: Abnormal Lab Results - Last 24 Hours (Table) 10/26/20 10/26/20 10/26/20 Range/Units 16:56 21:29 23:32 WBC (3.8-10.6) k/uL RBC (3.80-5.40) m/uL Hgb (11.4-16.0) gm/dL Hct (34.0-46.0) % RDW (11.5-15.5) % Neutrophils # (1.3-7.7) k/uL Sodium (137-145) mmol/L Chloride (98-107) mmol/L Carbon Dioxide (22-30) mmol/L BUN (7-17) mg/dL Creatinine (0.52-1.04) mg/dL Glucose (74-99) mg/dL POC Glucose (mg/dL) 167 H 202 H 204 H (75-99) mg/dL 10/27/20 10/27/20 10/27/20 Range/Units 05:00 05:00 06:13 WBC 11.4 H (3.8-10.6) k/uL RBC 2.86 L (3.80-5.40) m/uL Hgb 8.2 L (11.4-16.0) gm/dL Hct 25.1 L (34.0-46.0) % RDW 16.9 H (11.5-15.5) % Neutrophils # 9.0 H (1.3-7.7) k/uL Sodium 136 L (137-145) mmol/L Chloride 97 L (98-107) mmol/L Carbon Dioxide 31 H (22-30) mmol/L BUN 47 H (7-17) mg/dL Creatinine 1.97 H (0.52-1.04) mg/dL Glucose 171 H (74-99) mg/dL POC Glucose (mg/dL) 196 H (75-99) mg/dL 10/27/20 Range/Units 11:30 WBC (3.8-10.6) k/uL RBC (3.80-5.40) m/uL Hgb (11.4-16.0) gm/dL Hct (34.0-46.0) % RDW (11.5-15.5) % Neutrophils # (1.3-7.7) k/uL Sodium (137-145) mmol/L Chloride (98-107) mmol/L Carbon Dioxide (22-30) mmol/L BUN (7-17) mg/dL Creatinine (0.52-1.04) mg/dL Glucose (74-99) mg/dL POC Glucose (mg/dL) 129 H (75-99) mg/dL Microbiology - Last 24 Hours (Table) 10/22/20 09:36 Blood Culture - Preliminary Blood No Growth after 120 hours 10/22/20 20:55 Gram Stain - Final Sputum Sputum Culture - Final Acinetobacter ivonne/haemol Assessment and Plan Assessment: Impression: Acute hypoxic respiratory failure secondary to COVID-19 pneumonia and ARDS secondary to COVID-19 pneumonia, patient was transferred to the ICU on 09/11, intubated on 09/11, received REM on 09/11, received T OCI on 09/11, tracheostomy and PEG tube placement on 09/18 remains on mechanical ventilation with volume control plus mode 375, tidal volume, FiO2 50% PEEP of 8 rate of 32 Acute kidney injury with complete shutdown of urine output/anuria, requiring hemodialysis. Remains on hemodialysis Acute diabetic ketoacidosis and COVID-19 pneumonia on her initial presentation. Sepsis secondary to COVID-19 pneumonia Type 2 diabetes poorly controlled. Hemoglobin A1c of 13.6. Elevated inflammatory markers secondary to acute COVID-19 pneumonia History of hypertension. Generalized anxiety disorder. Morbid obesity BMI of 54.2. Status post tracheostomy and PEG tube placement on 09/18. Corneal injury, punctate keratitis left eye. Acinetobacter in sputum, patient remains on cefepime. Critical illness polyneuropathy and myopathy Episodic fever, presently under control. Non sustained ventricular tachycardia. Recommendation: Continue ventilatory support. However will give the patient today a trial of pressure support of 14 and CPAP Continue physical therapy. Continue insulin and adjust dose accordingly. Continue Seroquel. Continue cefepime for Acinetobacter infection. Continue dialysis as per nephrology on the case. Continue Lovenox 30 mg subcu daily Continue enteral feeding/nutrition support. Continue GI and DVT prophylaxis. Prognosis remains guarded and the patient is critical. Critical care time is over 30 minutes Time with Patient: Greater than 30
[2020-10-27] MEDS: ONDANSETRON 4 MG/2 ML VIAL IVP PRN ×2 (13:12→20:35)
[2020-10-27] MEDS: CEFEPIME 1 GM in SODIUM CHLORIDE 0.9% 50 ML IVPB SCH (14:07)
--- NOTE | 2020-10-27 15:02 | P.PN ---
Subjective Progress Note Date: 10/27/20 HISTORY OF PRESENT ILLNESS 35-year-old female patient of Dr. Arroyo with past medical history of type 2 diabetes comes in with acute shortness of breath associated with high light s ugars. Patient on admission was found to have a fever of 101.5 pulse rate 125 respiratory rate 20. Blood pressure 132/106. On chest x-ray obtained in the ER suggestive of bilateral infiltrates concerning for call with pneumonia. COVID PCR was positive. On admissions patient had an ABG with a pH of 7.14 pCO2 of 20, pO2 of 59, bicarb of 7. Patient's blood sugar on admission was 424 on assessment today patient's blood work patient had a sodium 135 potassium 5.4 chloride 123 bicarb less than 5 and creatinine 0.73. D-dimer was elevated on admission patient 9 28 patient given 1 L of IV fluids followed by normal saline running at 200 mL/h. Patient was positive for acetone on admission. She will anion gap closed and was switched to D5NS. Insulin drip was continued during the night and was switched to patient's home medication this morning. One dose of remdesiver was ordered. Apparently around noon, A- team was called on the patient secondary to hypoxia patient's oxygen saturation dropped to the 70s and 80s on 100% nonrebreather. Patient was switched to BiPAP on 18/12 and is doing better o FiO2 of 80%. ABG was obtained and ph was 7. 14 pCO2 of 28 bicarb of 7 pO2 of 17. Patient noted to have uncompensated metabolic acidosis with compensated respiratory alkalosis. Stat dose of 1 amp bicarb was given and followed by sodium bicarbonate drip. Insulin drip restarted. Patient's initiated on dexamethasone 6 mg IV twice a day. Potassium phosphate ordered as phosphorus is low. Patient's repeat blood gases suggest a pH of 7.25, CO2 32 pO2 of 72 bicarb 14. I will not normal saline at 100 mL/h as patient's anion gap has increased. Patient given 1 dose of 2 mg of morphine with improvement in respiratory rate. One dose of Ativan 0.5 mg was given. Xanax 0.25 twice a day along with Ativan 0.5 IV every 6 hours ordered for the patient. Vitals were evaluated patient pulse 129 [id number]. She was moved to the ICU. Precedex drip was initiated. Lopressor was initiated at 25 twice a day. Metoprolol tartrate 5 mg IV every 6 hours. Systolic blood pressure more than 160. Started chest x-ray was obtained and suggest stable bilateral consolidation suggestive of COVID-19 pneumonia. 09/12 patient is seen in the ICU is currently mechanically ventilated and sedated on vent settings of respiratory rate 36, tidal volume 375 FiO2 80% PEEP of 18.. Vital signs reviewed patient had a temp of 100.4 pulse 150 respiratory rate 36 oxygen saturation 95% on 80% on fio2 .'s labs are reviewed which patient had a d-dimer 1.84 that is increased to 14.3. Arterial Blood gas suggest ph 7.35, CO2 40, po2 62, . Her BMP suggest a sodium 135 potassium 3.7 chloride 112 bicarb 21 creatinine 1.57 for calcitonin is 3.5 CRP is increased from 8.78.2 LDH is increased to 2614. Patient remains on Pneumovax, propofol drip. Lovenox increased to 50 subcu twice a day. Patient received 2 L of IV fluids. Continue IV fluids at 100 mL/h. Bicarb drip discontinued patient initiated on Zosyn 3.375 every 8 hours. Continue insulin drip at 4 units per hour. Patient is currently in prone positioning 09/13: Patient evaluated in the ICU remains on Ventilation continues to be sedated, in prone position. Vent settings are respiratory rate 36, tidal vital 375, FiO2 70% PEEP of 18. ABG shows pO2 of 82, PCO2 of 39, pH is 7.19. Latest labs show WBC 11.1, hemoglobin 13.2, d-dimer still pending, but yesterday was up to 14.3. Creatinine up to 3.4, BUN 24 sodium 137, potassium 4.0. Patient's urine output has been low, nephrology on consult. Bicarb drip increased to 100 miles an hour, receiving another liter of normal saline, she did have a ultrasound that showed unremarkable bilateral kidneys. Repeat chest x-ray showed bilateral lung infiltrates that are stable. Anion gap has closed, will start Lantus 10 units at at bedtime Novolog every 6 hours. 09/14: Patient is seen in the ICU, still currently mechanically ventilated and sedated. She continues in the prone position. Her oxygen quickly drops if she is not in prone. Patient's kidney function has worsened. Laboratory values show creatinine of 4.87, BUN 33, LDH 2191, C-reactive protein 2.7. ABG shows pH 7.32, pO2 of 60, pCO2 43. Patient is making almost no urine overnight. Nephrology is following patient continues on cefepime for urinary tract infection, culture is still pending. Vascular has been consulted for placement of temporary hemodialysis catheter for plans for dialysis. 09/15: Patient evaluated in the ICU, continues to be mechanically ventilated and sedated on assist control ventilation rate of 36, tidal volume 375, FiO2 100% and PEEP of 18. ABG today shows pO2 58, pCO2 of 45, and pH 7.35. She continues on tube feedings. Yesterday patient underwent ultrasound-guided right internal jugular non-tunneled hemodialysis catheter placement. Patient underwent hemodialysis treatment last night and plans have another hemodialysis treatment today. She continues to make almost no urine. She continues on cefepime for antibiotic coverage, and continues on Decadron and Lovenox. 09/16: Patient seen on follow-up remains in the ICU mechanically ventilated and sedated. She continues on assist control rate of 36, tidal volume 375, FiO2 100% and PEEP of 20. PEEP had to be increased due to patient had to be in supine position for dialysis, will go back to prone position once dialysis is complete. ABG shows pH 7.32, pCO2 49, PaO2 61. Laboratory values showed WBC 11.2, hemoglobin 11, sodium 134, creatinine 4.44, BUN 38. Urine culture shows no growth, blood cultures show no growth to date. Repeat chest x-ray shows bilateral pleural effusions, correlate for ARDS, pulmonary edema, diffuse pneumonia, findings are stable from last exam. Patient does not require any pressors, blood pressure 133/57, heart rate 78. 5/16: Patient was evaluated in the ICU today for follow-up. She continues to be intubated and on mechanical ventilation. Current vent settings are tidal volume 375, FiO2 100% and PEEP of 20. ABG shows pH 7.37, pCO2 40, pO2 102. She continues with intermittent prone positioning. Patient continues to have almost no urine output, maintained on dialysis. Patient received dialysis yesterday without complication. Laboratory values revealed WBC 10.3, hemoglobin 10.4, sodium 132, potassium 3.1, BUN 33, creatinine 4.29, LDH 1913, C-reactive protein 1.3. Urine and sputum cultures are negative, blood cultures show no growth to date. Consult placed to dietary to start TPN[ ] 09/18: She remains in the intensive care unit intubated and on mechanical ventilation with tidal volume 375, FiO2 60 and PEEP of 20. Patient is being prone to daily at approximately 16 hours per day. Pulmonary medicine has added in Dr. Zhang to do PEG tube and trach today. Patient is not on vasopressors. Repeat blood work reveals WBC 12.6, hemoglobin 9.8, platelet count 212. Sodium 133, potassium 3.2, chloride 102, CO2 21, BUN 35 and creatinine 4.12. Blood sugar 126. Patient underwent hemodialysis yesterday with removal of 2 L and is scheduled again today with goal of 2-3 L and is scheduled again tomorrow. 09/19: She is scheduled for hemodialysis today and is off fentanyl temporarily. Patient is status post trach and PEG tube yesterday. And she remains on mechanical ventilation. Pulse ox 93-95%. She has been afebrile, heart rate 64, respiratory rate 36, blood pressure 115/50. Fentanyl is off to improve blood pressure for hemodialysis which is scheduled for today. Contacted vascular surgery about permanent hemodialysis catheter. Repeat blood work reveals WBC 14.3, hemoglobin 9.6, platelet count 200. D-dimer 6.48. LDH 1686. C-reactive protein 1.1. BUN 34 creatinine 3.81. Sodium 130, potassium 3.5, chloride 101, CO2 18. Blood sugars running between 101 198. Plan is to wean off Pneumovax today. Patient remains on insulin drip. Repeat chest x-ray reveals bilateral multifocal confluent opacities consistent with COVID-19. Some improved aeratio n periphery of the left lung and worsening opacities throughout the right lung. 09/20: She remains in the intensive care unit on mechanical ventilation. She has been afebrile, heart rate 65, respiratory rate 37, blood pressure 121/70, pulse ox 91-99%. Repeat blood work reveals WBC 14.5, hemoglobin 9.1, platelet count 216. D-dimer 6.13. Sodium 133, potassium 3.1, chloride 102, CO2 18, BUN 35 and creatinine 4.27. Blood sugars running between 128 and 143. LDH 1717. C- reactive protein 1.7. Patient remains on insulin drip which will be transitioned to NovoLog scale every 6 hours. Patient is scheduled for permanent hemodialysis catheter placement today with vascular surgery. Repeat chest x-ray reveals stable diffuse bilateral interstitial and airspace disease. Possible small right effusion. His work is following for transfer to nursing home care facility. Do not anticipate discharge until next week. 09/21: Patient is undergoing hemodialysis. She remains on mechanical ventilation with tidal volume 375, FiO2 down to 45 and PEEP was decreased to 15. Patient is continued on propofol, fentanyl drips. She is on tube feedings at goal. Patient was taken off insulin drip yesterday and on scale only but blood sugars are running in the 200s, Levemir scheduled at bedtime will be added. Other blood work reveals WBC 13.3, hemoglobin 8.7, platelet count 192. Sodium 137, potassium 3.6, chloride 107, CO2 18, BUN 34 and creatinine 4.21. Repeat chest x-ray is stable. 09/22: She remains in the intensive care on mechanical ventilation with tidal volume 375, FiO2 of 50 and PEEP of 10. Pulse ox is running 96%. She is afebrile, heart rate in the 50s, respiratory rate 36, blood pressure 100/64. Repeat blood work reveals WBC 16.5, hemoglobin 8.9, platelet count 213. Sodium 134, potassium 3.7, chloride 103, CO2 21, BUN 34 and creatinine 3.89. Blood sugars running in the 200s to 324. Levemir increased to 16 units at bedtime and continue NovoLog scale every 6 hours. Patient is on tube feedings at goal. She has a Haley catheter in with a scant amount of dark/brown urine. Fecal management system is in place. Repeat chest x-ray reveals diffuse bilateral airspace infiltrates persist unchanged. Patient is scheduled for hemodialysis tomorrow morning on Friday. 09/23: Patient remains on mechanical ventilation with tidal volume 3.75, FiO2 50 and PEEP of 10. start up specialist sinus rhythm. She has no urine output. Fecal management system is in place. She is undergoing dialysis at this time with plan for removal of 2-1/2 L. She has been afebrile, heart rate in the 50s, respiratory rate 36, blood pressure 108/76 and pulse ox 89%. WBC 13.6, hemoglobin 9.1, platelet count 194. Sodium 136, potassium 3.0 and was replaced, chloride 106, CO2 21, BUN 49 creatinine 5.31. Blood sugars are running between 182 and this morning 194. Patient was still in the 200s and 300s. Levemir last evening was increased to 16 units. Patient remains on propofol and fentanyl drips. Lovenox was increased to 60 mg twice daily. 09/24: PEEP was increased today to 20, tidal volume is at 375 and FiO2 of 50%. Patient has been afebrile. She has been started on levo fed. Repeat chest x- ray reveals bilateral multifocal confluent opacities consistent with Covid 19 or ARDS redemonstrated. Nephrology will plan dialysis for tomorrow for 3 L. Patient remains on propofol fentanyl and Nimbex. WBC 12.5, hemoglobin 9.8, platelet count 161. D-dimer 13.3. Sodium 132, potassium 3.4, chloride 102, CO2 20, BUN 48 and creatinine 4.67. Blood sugars extremely elevated to 96-409. LDH 2217. 09/25: Patient remains in the intensive care unit on mechanical ventilation with tidal volume 375, FiO2 50 and PEEP of 20. Patient is afebrile, heart rate 61, respiratory rate 36, blood pressure 102/56, pulse ox 97%. Repeat blood work reveals WBC 9.3, hemoglobin 8.5 and platelet count 171. Sodium 130, potassium 3.7, chloride 100, CO2 20, BUN 61 creatinine 5.65. Blood sugars have been elev ated up to 455. Levemir increased to 20 units twice daily, NovoLog 5 units every 6 hours and continue NovoLog scale. Patient is scheduled for hemodialysis today. Repeat chest x-ray reveals bilateral multifocal and confluent opacities. Decadron and Lovenox dosing change by pulmonary. Patient is off norepinephrine. 09/26: Patient remains in the intensive care unit on mechanical ventilation with tidal volume 375, FiO2 50 and PEEP of 15. She has been afebrile, heart rate 91, blood pressure 114/68, pulse ox 99%. start up specialist sinus rhythm. 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 Sodium 134, potassium 3.6, chloride 102, CO2 22, BUN 41 creatinine 4.21. Patient has improved blood sugars this morning running 150s and 160s. Diabetic medications were adjusted yesterday. Patient is awake and alert and interacting. Yesterday, patient had PICC line inserted by interventional radiology. Repeat chest x-ray reveals diffuse airspace infiltrates in both lung ann appear to progress slightly in the interval. 09/27: Patient remains in intensive care unit on mechanical ventilation with improvement of settings with tidal volume 375, FiO2 decreased to 40 and PEEP decreased to 10. Patient is on hemodialysis every other day and plan to remove 3 L today. Patient is more awake and alert. She is slow to respond but is able to follow simple commands. Blood sugars are running between 84 and 123. Repeat blood work reveals WBC 7.1, hemoglobin 8.1, platelets 152. Sodium 135, potassium 3.6, chloride 103, CO2 21, BUN 53 and creatinine 5.88. Repeat chest x-ray revealed cardiomegaly and pulmonary edema. Patient is on tube feedings:. Patient is not require vasopressors and is off sedation. Fecal management system remains in place for brown liquid stool. C. difficile was negative. 09/28: Patient remains on mechanical ventilation with tidal volume 375, FiO2 increased to 80 and PEEP increased to 18. Patient had a rough night was very anxious, no pain. Xanax 0.25 mg 3 times daily was added. There is concern for pulmonary embolism for which patient was started on heparin drip, she is unable to undergo CAT scan. Venous Doppler bilateral lower extremities was nondiagnostic due to extensive edema in obese patient but minimal imaging of the popliteal veins does show flow. Repeat echocardiogram has been ordered. Cefepime has also been ordered at 1 g IV piggyback every 24 hours as well as vancomycin, pharmacy dosing. Patient is back on fentanyl drip, propofol drip and norepinephrine. Blood sugars are elevated and insulin Levemir will be i ncreased to 25 mg twice daily. Ferrlecit infusion has been ordered by nephrology for 4 days. Patient is undergoing hemodialysis today.temperature max 100.2, heart rate 134, respiratory rate 34, blood pressure 120/65, pulse ox 94%. start up specialist is sinus tachycardia. Repeat blood work reveals WBC 16.9, hemoglobin 9.7, platelet count 216. D-dimer 8.81. Sodium 134, potassium 3.8, chloride 99, CO2 25, BUN 43 and creatinine 5.36. Blood sugars in the 200s. AST 40. 09/29 Patient had declined more last 48 hours require more sedation, patient is doing hemodialysis, respiratory failure is quite bit worse this time. Patient was inquired the pain is well back on fentanyl drip. Her vent set up with PEEP is limited but higher. No new finding on culture and her chest x-ray continues shows diffuse infiltrate persistent although there is a moderate interval improvement. 09/30 patient's was seen and evaluated. PEEP was reduced to 11 as patient is maintaining good saturation at the current vent settings. 10/01 patient was seen at bedside. She is currently on assist control rate of 28 white tidal volume 350 FiO2 50% and PEEP of 10 which has been reduced by pulmonary as patient name cleaning her oxygen saturation. Arm blood gas was obtained with a pH of 7.35 pCO2 37 pO2 of 63. She remains hemodynamically stable with no need for pressors. Labs were reviewed patient's BUN is 29 crea tinine 3.93 glucose 122 albumin 2.2 sodium 131 chloride 19 hemoglobin is downtrending with a Hb of 7.3 no leukocytosis 7.1. Patient's urine output is minimal at this time. Her rate has increased to 129 and is currently on positive fluid balance even with dialysis. Last dialysis was done yesterday. Continue enteral feeding currently at goal. Antibiotic has been discontinued and continues to remain on DEXA methicillin 4 mg IV daily. 10/02 patient continues to be on trach support with mechanical ventilation. Patient was evaluated by clinical product manager and was switched to VC control as patient was noted to be double stacking on and off throughout the night. Respiratory rate continue to 28 tidal volume increased to 400 with a PEEP for Dr. Downey. Patient is maintaining oxygen saturation 91% on the current setting. According to the nurse bedside patient saturation drops significantly or she is moved or her sedation is dropped. Patient is currently on propofol drip, fentanyl drip. She did underwent dialysis today and was able to maintain her low pressure without the need of pressors. Labs reviewed today suggest a WBC of 6.7 hemoglobin of 7.0 and d-dimer 3.9 bicarb 17 BUN 38 creatinine 4.8. LDH is 964. Sodium 1:30 likely secondary to volume overload. Urine sodium and urine osmolality ordered. Patient's glucose this morning is 146. Continue to remain on enteral feeding. Urine output is reduced. Fall catheter will be placed today. Continue to remain on dialysis. 10/03: Patient remains on mechanical ventilation and is back on propofol and fentanyl drips. Patient is currently on VC control with tidal volume 400, FiO2 55 and PEEP of 12. Patient still is not making any urine and is dialysis dependent with next treatment planned for tomorrow with removal of 3-3-1/2 L. PEG tube feedings are at goal. Fecal management system remains in place. At the time of evaluation, patient is off levophed. Repeat chest x-ray reveals stable diffuse bilateral airspace disease correlate for ARDS, pulmonary edema or diffuse pneumonia. Temperature max last evening was 101. Temperature currently 99, heart rate 106, respiratory rate 32, blood pressure 101/50, pulse ox 86%. Repeat blood work reveals WBC 6, hemoglobin 7.4, platelet count 160. D-dimer 4.05. Sodium 133, potassium 3.5, chloride 100, CO2 23, BUN 31 creatinine 3.8. Blood sugars are running between 100 and 170. Ferritin 1514. Liver function test normal. LDH 1016, C-reactive protein 13.6. Prognosis remains guarded. 10/04: Patient remains intubated on mechanical ventilation with tidal volume 400, FiO2 65, PEEP of 14. Patient continues to run fevers and repeat blood culture and urine and urine culture ordered for today. Haley catheter has been removed this patient has no significant urine output at about 20 mL per shift. BladderScan is monitored for greater than 300 and the patient is straight cathed. Hemoglobin is 6.8 and she has been ordered 41 unit of packed RBCs today. She is currently on propofol and fentanyl drips. She is scheduled for hemodialysis today. WBC 4.5, hemoglobin 6.8, platelet count 151. D-dimer 3.28. Sodium 132, potassium 4.1, chloride 100, CO2 22, BUN 37 creatinine 4.74. Blood sugars running between 97 and 110. Ferritin 1801. LDH 859. C-reactive protein 14.4. Chest x-ray reveals correlate for pneumonia, edema, ARDS. Prognosis remains guarded. 10/05: Patient remains in intensive care unit currently on mechanical ventilation with tidal volume 400, FiO2 was increased to 100 and PEEP is at 14. She continues to run fevers which have worsened with temperature max 103.1. She has been tachycardic in the 130s, blood pressure is marginal but not on vasopressors. Pulse ox currently 92%. Repeat blood work reveals WBC 5.5, hemoglobin 7.6, platelet count 190. D-dimer 2.7, ferritin 1770, LDH 932, C- reactive protein 21.4. Blood sugars are running between 100 1669. Electrolytes are normal. BUN 27 and creatinine 3.79. Pancultures were done yesterday including a straight cath for urine culture, sputum culture and blood culture. Arterial line was removed as well as midline. She is currently on propofol, fen tanyl and started on Nimbex today. 10/06: Patient remains in the intensive care unit. Today patient in prone position and remains on mechanical ventilation with tidal volume 350, FiO2 65 and PEEP of 14. Her last documented fever was yesterday at 2 PM. Heart rate is in the 120s, respiratory rate 32, pulse ox 88-92%. CBC is unremarkable. Electrolytes are normal. BUN 30 creatinine 2.93. Blood sugars are running between 135 and 164. Cultures from October 04: Blood culture no growth, sputum culture finalized, urine culture finalized. Catheter tip culture is in process. Repeat chest x-ray shows bilateral interstitial infiltrates. Patient is on tube feedings of Nepro at goal of 30 ML's per hour. Patient underwent dialysis yesterday and is scheduled for repeat dialysis today. 10/07: Patient maintains in the intensive care unit intubated and on mechanical ventilation. She is receiving hemodialysis this morning has been every day. Plan is to remove 2-1/2 L today. Vent settings have changed today with tidal volume 350, FiO2 was increased to 100% and PEEP remains at 14. She has been continued on Nimbex, fentanyl, norepinephrine and propofol. Plan is to prone position patient following dialysis. Repeat chest x-ray reveals worsening interstitial infiltrates. BUN is 26 and creatinine 2.59. LDH 955, C-reactive protein 22.1. Prognosis remains poor. 10/08: Patient remains in intensive care unit intubated and on mechanical ventilation with tidal volume 350, FiO2 60, PEEP of 14. She is pronating today. She is scheduled for hemodialysis on a daily basis. She has been afebrile, heart rate 112, respiratory rate 36, blood pressure 161/88, pulse ox 93%. Repeat blood work reveals WBC 9.9, hemoglobin 9.1, platelet count 320. Sodium 133, potassium 5.3, chloride 100, CO2 20, BUN 29 creatinine 2.44. Blood sugar running between 102 and 139. LDH 1026, C-reactive protein 19.7. 10/09: Patient is undergoing dialysis this morning. She continues to be intubated and on mechanical ventilation with tidal volume 350, 270 and PEEP of 14. Patient is also on propofol, Nimbex, norepinephrine and fentanyl drips. Repeat chest x-ray reveals persistent bilateral multifocal and confluent opacities consistent with Covid 19. She is afebrile, heart rate 116, respiratory rate 36, blood pressure 120/65, pulse ox 91%. Repeat blood work reveals WBC 5.4, hemoglobin 9.2, platelet count 216. D-dimer 2.67, ferritin 2568, LDH 794, C- reactive protein 13.9. Blood sugars have been running 90-104. Creatinine 1.64. She is on daily dialysis treatment. 10/10: She remains in the intensive care unit. She is now out of isolation as a repeat Covid test came back negative. She remains on mechanical ventilation with tidal volume 350, FiO2 70 and PEEP of 14. Patient is also on Nimbex, propofol, norepinephrine, fentanyl drips. She is on PEG tube feedings at goal and tolerating well. Repeat blood work reveals WBC 7.8, hemoglobin 7.5, platelet count 267. Sodium 139, potassium 3.9, chloride 109, CO2 20, BUN 20 creatinine 1.29. Blood sugars are running between 76 and 102. Scheduled Aiyana Log decreased to 3 units. Repeat chest x-ray reveals moderate cardiomegaly and continued pulmonary edema. Slight interval improvement. Patient is continued on daily hemodialysis. 10/11: Patient remains in intensive care unit on mechanical ventilation with tidal volume 325, FiO2 70, PEEP 14. She is currently being prone. She underwent hemodialysis this morning with removal of 4 L of fluid with plan to continue daily treatment. She is currently on Nimbex, fentanyl and propofol. No vasopressor at this time. Fecal management system remains in place. She is on tube feedings currently at hold due to prone positioning. Patient has been afebrile, heart rate 116, respiratory rate 36, blood pressure 100/58, pulse ox 93-96%. Repeat blood work reveals WBC 9.3, hemoglobin 8.1, platelet count 276. Sodium 136, potassium 4.3, chloride 103, CO2 20, BUN 20 creatinine 1.14. Blood sugars running between 133 and 202. 10/12: Patient remains in the intensive care unit. She is undergoing hemodialy sis this morning. She's been afebrile, heart rate in the 120s, respiratory rate 32, blood pressure 102/65. She is not on vasopressors. She is continued on Nimbex, fentanyl and propofol. Vent settings are currently tidal volume 325, FiO2 70, PEEP 14. Total platelet count 273. Sodium 133, potassium 4.7, chloride 100, CO2 19, BUN 21 creatinine 0.91. Blood sugars running between 121 and 143. 10/13: Patient remain in the ICU she is on hemodialysis daily, she is still on the vent with a PEEP of 14 and FiO2 of 70. Her oxygenation is marginal pulse rate still high. Patient had scratched cornea was seen in ophthalmology decided to keep doing eyedrops along with eye patch at this point. Prognosis still very bad this point. 10/14: She remains on mechanical ventilation with tidal volume 325, FiO2 70% and PEEP of 14. She did require label fed last evening for about 6 hours. She did not tolerate pronating yesterday. She is undergoing dialysis this morning with plan for removal of 4 L. Blood sugars have been low and IV fluids changed to D10 until blood sugars have recovered. Levemir and scheduled NovoLog discontinued. Patient is on tube feedings at goal there's been no change in th is. 10/15 patient remains on mechanical ventilation in the intensive care unit. FiO2 still at 70%, PEEP of 18. Blood sugars have improved since medications were adjusted. White blood cells 33.9, hemoglobin 8.5, sodium 135, BUN 19, creatinine 0.96. Patient to receive dialysis again today. Patient did run a low-grade fever throughout the night and pro calcitonin level is ordered. Chest x-ray showed continued diffuse bilateral airspace disease. Patient remains on tube feedings at goal. 10/16: Patient remains on mechanical ventilation with tidal volume 300, FiO2 70, PEEP of 15. Fecal management system is out. She is currently on low dose of norepinephrine. She is also on fentanyl drip, propofol drip, rocuronium drip. Heart rate is running in the 130s, sinus rhythm, blood pressure 121/63, pulse ox 95%. Patient is been afebrile. Repeat blood work reveals WBC 18.9, hemoglobin 7.5, platelet count 291. Sodium 135, potassium 4.2, chloride 101, CO2 19, BUN 25 and creatinine 1.36. Blood sugars are running between 143 and 199. Patient is on scale insulin only. Repeat chest x-ray reveals persistent bilateral multifocal and completed opacities consistent with Covid 19. 10/17: Patient remains on mechanical ventilation with tidal volume 300, FiO2 50, PEEP of 14. She is currently receiving hemodialysis. The patient is having yellow-colored drainage from the trach site. This is going to be culture today. Repeat blood work reveals WBC of 24, hemoglobin 7.3 and platelet count 310. Sodium 136, potassium 4.1, chloride 101, CO2 19, BUN 24 creatinine 1.43. Blood sugar 139. Capillary blood glucose running 147 and 189. Repeat chest x-ray is unchanged. Patient had increased respiratory rate 40s and 50s with oxygen saturation of 87 and now was increased and Seroquel added this morning. Prognosis remains guarded. 10/18: Patient remains on mechanical ventilation with tidal volume 300, FiO2 60, PEEP has been decreased to 12. Patient will need a PEEP of 8 in order to tra nsfer to long-term care. She is currently on fentanyl drip and Precedex drip. Patient is tracking when her name is stated. She seems to be slightly improved today. Patient has been afebrile, heart rate 106, respiratory rate 32, blood pressure 110/61, pulse ox 98%. Repeat blood work reveals WBC 30.3, hemoglobin 7.2, platelet count 350. Sodium 139, potassium 4.2, chloride 103, CO2 20, BUN 23 creatinine 1.79. Blood sugars are increasing running up 299. Patient will be placed on Levemir. Secretions from tracheotomy sent for culture and in process. She is currently undergoing hemodialysis. 10/23: Patient remains in the intensive care unit on mechanical ventilation with tidal volume 300, FiO2 65 and PEEP of 10. start up specialist has been in a sinus rhythm. Patient does open her eyes and appears to be tracking. Blood sugars have been elevated. Levemir will be increased to 40 units daily and scheduled NovoLog increased to 12 units and continue NovoLog every 6 hours per scale. Patient is receiving hemodialysis today. She is not currently on vasopressors. Patient is on Precedex drip only. Antibiotics in the form of cefepime were started on October 18. Patient has been afebrile, heart rate 126, respiratory rate 36, blood pressure 163/105. Pulse ox 91%. Repeat blood work reveals WBC 16.0, hemoglobin 7.2, platelet count 208. Electrolytes are within normal limits. BUN 62 and creatinine 2.43. Blood sugars running between 259-321. Most recent blood culture from [facility] 20 is no growth at 24 hours. Repeat chest x-ray reveals cardiomegaly and persistent bilateral pulmonary edema. 10/24: Patient is awake, eyes are open and tracking, she is able to follow simple commands. Severe generalized weakness noted. Precedex gtt has been discontinued. Patient is receiving hemodialysis. Her blood sugars have remained elevated for which Levemir increased to 25 units twice daily along with 15 units of NovoLog every 6 hours along with scale. Tidal volume 330, FiO2 60, PEEP of 8. clinical application manager and social secretary following closely. Anticipate possible discharge by the end of next week to long-term care facility. 10/25: Patient remains in the intensive care unit on mechanical ventilation. Tidal volume 350, FiO2 60, PEEP 8. She is receiving hemodialysis this morning. Her heart rate remains elevated in the 130s. Pulmonary as started her on Cardizem at 60 mg 3 times daily which has not had any improved effect. We'll start the patient on Lopressor 25 mg twice daily. Patient has been afebrile, heart rate respiratory rate 32, blood pressure 151/91, pulse ox 98%. Patient is been transfuse 1 unit of packed RBCs today. Patient's mental status is improving and patient is able to follow simple commands. WBC 12.2, hemoglobin 6.3, platelet count 196. Sodium 135 otherwise looked lites are normal, BUN 48 creatinine 1.99. Blood sugars are running between 120 and 172. Levemir has been increased to 30 mg twice daily continue 15 units of NovoLog every 6 hours with scale. 10/26: Patient remains in intensive care unit, on mechanical ventilation with tidal volume 375, FiO2 50, PEEP of 8. Patient's heart rate remains elevated 120s and Lopressor increased to 50 mg twice daily. Patient seems to be quite anxious and depressed. We will decrease Seroquel to 50 mg twice daily and start patient on Lexapro. Patient received her first dose of Xanax this morning but this did not seem to help heart rate either. She has been afebrile, heart rate 128, blood pressure 149/79, pulse ox 93%. Repeat hemoglobin 7.3. Sodium 135, potassium 3.9, chloride 90, CO2 30, BUN 45 and creatinine 1.94. Blood sugar are improved running between 117-194. We will make further adjustments to insulin and to increase long-acting to 35 units twice daily and decrease NovoLog scheduled to 7 units and continue NovoLog scale. There are problems with patient's trach and consequently placed with [facility]. General surgery to reevaluate trach. 10/27: Patient is complaining of nausea today. Concerned that this is related to Lexapro. We will further decrease Seroquel to 50 mg at bedtime. Patient is being bladder scanned and last bladder scan wasn't 125 mL. She does not have Haley catheter. No fecal management system. She is having a bowel movement about 3 per day. Plan is for CPAP trial today. She is currently on mechanical ventilation with tidal volume 375, FiO2 50 and PEEP of 8. She has been afebrile, heart rate 105 which is much improved from the last few days. Blood pressure 145/88, pulse ox 94%. There is a new consult in place for Dr. Clemente regarding exchanging the trach and possible debridement at site. WBC 11.4, hemoglobin 8.2, blood count 218. Sodium 136, potassium 4.1, chloride 97, CO2 31, BUN 47 creatinine 1.97. Blood sugars running between 129 and 204. We have changed long acting insulin to 35 units twice daily and continue NovoLog 7 units every 6 hours and scale every 6 hours. Nephrology may be decreasing frequency of dialysis treatments. Anticipate probable discharge to long-term care next week. trach and possible debridement at the site.REVIEW OF SYSTEMS Unable to obtain due to mechanical ventilation. PHYSICAL EXAMINATION Gen: This is is a 35-year-old black female, patient is on mechanical ventilation, appears to be comfortable. HEENT: Head is atraumatic, normocephalic. Pupils equal, round. Sclerae is anicteric. Eyes are open and tracking. Tracheostomy midline with surrounding erythema . NECK: Supple. No JVD. No lymphadenopathy. No thyromegaly. LUNGS: Lung sounds are diminished at the bases but otherwise clear to auscultation. No intercostal retractions. HEART: Regular rate and rhythm. No murmur. start up specialist sinus tachycardia. ABDOMEN: Soft. Bowel sounds are present. No masses. No tenderness. EXTREMITIES: Trace bilateral pedal edema. No calf tenderness. NEUROLOGICAL: Patient is awake and able to follow simple commands, significant weakness. ASSESSMENT AND PLAN 1. Acute hypoxic respiratory failure secondary to Covid 19 pneumonia and possible bacterial pneumonia. Patient was intubated on September 11. She is status post 1 dose of Remdesivir and 1 dose of Tocilizumab. Continue Ventolin inhaler 4 times daily, Lovenox 30 mg subcu daily, supplements. Status post PEG tube and trach. Continue cefepime. 2. Acute diabetic ketoacidosis secondary to Covid 19 pneumonia, uncontrolled with hyperglycemia. Levemir increased to 35 units twice daily and scheduled NovoLog increased to 7 units every 6 hours and continue NovoLog scale every 6 hours. 3. Metabolic encephalopathy secondary to Covid 19 and DKA. 4. Sepsis and septic shock secondary to Covid 19 pneumonia with multiorgan failure. Continue as in #1. Trach drainage cultured. General surgery to reevaluate trach and wound care consult has been added. 5. Acute metabolic acidosis secondary to acute DKA, Covid 19 and acute kidney injury. Renvela 1600 mg 3 times daily. 6. Diabetes mellitus type 2 uncontrolled with A1c 13.6. Continue as above. 7. Hypophosphatemia status post replacement. 8. Hyperkalemia secondary to DKA, resolved. 9. Sinus tachycardia secondary to sepsis, volume deficiency. Patient is on Cardizem 60 mg 3 times daily, and Lopressor increased to 50 mg twice daily. 10. Acute kidney injury secondary to ATN secondary to Covid 19 and DKA. Continue daily hemodialysis. Permanent dialysis catheter placed. 11. Possible acute gram-negative pneumonia versus MRSA pneumonia. Completed course of antibiotics. 12. Hypertension. 13. Morbid obesity with BMI of 53. 14. Situational depression and anxiety. Seroquel decreased to 50 mgat bedtime, continue Lexapro 10 mg daily and Xanax 0.25 mg twice daily as needed. 15. DVT prophylaxis. Lovenox. 16. GI prophylaxis. Protonix 40 mg IV push daily. CODE STATUS: Full code Prognosis guarded. 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 Kimberly Boswell nurse practitioner acting as scribe for signing physician. Objective - Vital Signs Vital signs: Vital Signs Temp 99.3 F 10/27/20 08:00 Pulse 120 H 10/27/20 09:00 Resp 25 H 10/27/20 09:00 BP 155/90 10/27/20 09:00 Pulse Ox 91 L 10/27/20 09:00 Intake & Output 10/26/20 10/27/2021 18:59 06:59 18:59 Intake Total 862 882 96 Output Total 7300 0 0 Balance -6438 882 96 Weight 98.6 kg Intake: IV 100 120 10 0.9 Normal Saline @ KVO 120 10 Cefepime 1 gm In Sodium 100 Chloride 0.9% 50 ml @ 12. 5 mls/hr IVPB Q24H [facility] Rx #:[id number] Tube Feeding [phone] 56 Other 90 90 30 Output: Urine 0 0 Stool 3300 Hemodialysis 4000 Other: Voiding Method Incontinent Incontinent # Bowel Movements 1 ABP, PAP, CO, CI - Last Documented Arterial Blood Pressure 136/76 - Labs CBC & Chem 7: 10/27/20 05:00 10/27/20 05:00 Labs: Abnormal Lab Results - Last 24 Hours (Table) 10/26/20 10/26/20 10/26/20 Range/Units 04:05 11:43 16:56 WBC (3.8-10.6) k/uL RBC (3.80-5.40) m/uL Hgb (11.4-16.0) gm/dL Hct (34.0-46.0) % RDW (11.5-15.5) % Neutrophils # (1.3-7.7) k/uL Sodium (137-145) mmol/L Chloride (98-107) mmol/L Carbon Dioxide (22-30) mmol/L BUN (7-17) mg/dL Creatinine (0.52-1.04) mg/dL Glucose (74-99) mg/dL POC Glucose (mg/dL) 194 H 167 H (75-99) mg/dL Creatine Kinase 25 L (30-135) U/L 10/26/20 10/26/20 10/27/20 Range/Units 21:29 23:32 05:00 WBC 11.4 H (3.8-10.6) k/uL RBC 2.86 L (3.80-5.40) m/uL Hgb 8.2 L (11.4-16.0) gm/dL Hct 25.1 L (34.0-46.0) % RDW 16.9 H (11.5-15.5) % Neutrophils # 9.0 H (1.3-7.7) k/uL Sodium (137-145) mmol/L Chloride (98-107) mmol/L Carbon Dioxide (22-30) mmol/L BUN (7-17) mg/dL Creatinine (0.52-1.04) mg/dL Glucose (74-99) mg/dL POC Glucose (mg/dL) 202 H 204 H (75-99) mg/dL Creatine Kinase (30-135) U/L 10/27/20 10/27/20 Range/Units 05:00 06:13 WBC (3.8-10.6) k/uL RBC (3.80-5.40) m/uL Hgb (11.4-16.0) gm/dL Hct (34.0-46.0) % RDW (11.5-15.5) % Neutrophils # (1.3-7.7) k/uL Sodium 136 L (137-145) mmol/L Chloride 97 L (98-107) mmol/L Carbon Dioxide 31 H (22-30) mmol/L BUN 47 H (7-17) mg/dL Creatinine 1.97 H (0.52-1.04) mg/dL Glucose 171 H (74-99) mg/dL POC Glucose (mg/dL) 196 H (75-99) mg/dL Creatine Kinase (30-135) U/L Microbiology - Last 24 Hours (Table) 10/22/20 09:36 Blood Culture - Preliminary Blood No Growth after 96 hours 10/22/20 20:55 Gram Stain - Final Sputum Sputum Culture - Final Acinetobacter ivonne/haemol
[2020-10-27 17:43] LABS: Glucose,Whole Blood 237 mg/dL (75-99)
--- NOTE | 2020-10-27 19:15 | P.PN ---
Subjective Progress Note Date: 10/27/20 As above. Patient seen and evaluated. CHIEF COMPLAINT: Ventral dependent respiratory failure HISTORY OF PRESENT ILLNESS: The patient is a 35-year-old female with coronavirus pneumonia, ventilator dependent respiratory failure and tracheostomy and gastrostomy tube placement. She is on daily dialysis. She is now on CPAP for the first time. She has multiple co-morbidities due to complications from COVID infection. ROS: No new chest pain. Morbidly obese, BMI over 45.0. Mechanical ventilation now on CPAP. PHYSICAL EXAM: VITAL SIGNS: Reviewed CONSTITUTIONAL: Well developed and in no acute distress. EYES: Conjuctivae without sclera icterus. Extraocular movements grossly intact. HEAD, EARS, NOSE, THROAT: Moist buccal mucosa. Head is atraumatic, normocephalic. NECK: Tracheostomy intact with subcutaneous erosion from the tracheostomy, less than 2 cm with seropurulent drainage RESPIRATORY: Non-labored respirations and equal bilateral excursions. CARDIOVASCULAR: Palpable 2+ radial pulses. ABDOMEN: Gastrostomy tube intact MUSCULOSKELETAL: No gross deformity of the lower extremities noted. No clubbing. No cyanosis. SKIN: Good skin turgor. Well perfused. NEUROLOGIC: Cranial nerves II through XII grossly intact. No focal or lateralizing signs. PSYCH: CLINICAL LABS: Reviewed. WBC over 10,000 ASSESSMENT: 1. Coronavirus pneumonia 2. Ventilatory-dependent respiratory failure 3. Status post tracheostomy for prolonged intubation 4. Status post gastrostomy for inadequate protein malnutrition 5. Morbid obesity due to excess calories, BMI 47.5 6. Anemia status post blood transfusion 7. Sepsis 8. Acute renal failure and hemodialysis 9. Poorly controlled diabetes, hyperglycemia 10. Complication from tracheostomy PLAN: 1. Recommend pressure relief dressing along tracheostomy site. 2. Continue with tube feeds for nutritional support 3. Continue IV antibiotics Objective - Vital Signs Vital signs: Vital Signs Temp 99.5 F 10/27/20 16:00 Pulse 123 H 10/27/20 19:00 Resp 18 10/27/20 19:00 BP 149/77 10/27/20 19:00 Pulse Ox 96 10/27/20 19:00 Intake & Output 10/27/20 10/27/20 10/28/20 06:59 18:59 06:59 Intake Total 882 1212 Output Total 0 4000 Balance 882 -2788 Weight 98.6 kg 98.6 kg Intake: IV 120 120 0.9 Normal Saline @ KVO 120 120 Tube Feeding 672 672 Other 90 420 Output: Urine 0 0 Hemodialysis 4000 Other: # Bowel Movements 1 ABP, PAP, CO, CI - Last Documented Arterial Blood Pressure 136/76 - Labs CBC & Chem 7: 11/17/20 05:35 11/17/20 05:35 Labs: Abnormal Lab Results - Last 24 Hours (Table) 10/26/20 10/26/20 10/27/20 Range/Units 21:29 23:32 05:00 WBC 11.4 H (3.8-10.6) k/uL RBC 2.86 L (3.80-5.40) m/uL Hgb 8.2 L (11.4-16.0) gm/dL Hct 25.1 L (34.0-46.0) % RDW 16.9 H (11.5-15.5) % Neutrophils # 9.0 H (1.3-7.7) k/uL Sodium (137-145) mmol/L Chloride (98-107) mmol/L Carbon Dioxide (22-30) mmol/L BUN (7-17) mg/dL Creatinine (0.52-1.04) mg/dL Glucose (74-99) mg/dL POC Glucose (mg/dL) 202 H 204 H (75-99) mg/dL 10/27/20 10/27/20 10/27/20 Range/Units 05:00 06:13 11:30 WBC (3.8-10.6) k/uL RBC (3.80-5.40) m/uL Hgb (11.4-16.0) gm/dL Hct (34.0-46.0) % RDW (11.5-15.5) % Neutrophils # (1.3-7.7) k/uL Sodium 136 L (137-145) mmol/L Chloride 97 L (98-107) mmol/L Carbon Dioxide 31 H (22-30) mmol/L BUN 47 H (7-17) mg/dL Creatinine 1.97 H (0.52-1.04) mg/dL Glucose 171 H (74-99) mg/dL POC Glucose (mg/dL) 196 H 129 H (75-99) mg/dL 10/27/20 Range/Units 17:42 WBC (3.8-10.6) k/uL RBC (3.80-5.40) m/uL Hgb (11.4-16.0) gm/dL Hct (34.0-46.0) % RDW (11.5-15.5) % Neutrophils # (1.3-7.7) k/uL Sodium (137-145) mmol/L Chloride (98-107) mmol/L Carbon Dioxide (22-30) mmol/L BUN (7-17) mg/dL Creatinine (0.52-1.04) mg/dL Glucose (74-99) mg/dL POC Glucose (mg/dL) 237 H (75-99) mg/dL Microbiology - Last 24 Hours (Table) 10/22/20 09:36 Blood Culture - Preliminary Blood No Growth after 120 hours Assessment and Plan (1) Respiratory failure requiring intubation Status: Acute Code(s): J96.90 - RESPIRATORY FAILURE, UNSP, UNSP W HYPOXIA OR HYPERCAPNIA SNOMED Code(s): 136085144 (2) Morbid obesity due to excess calories Status: Acute Code(s): E66.01 - MORBID (SEVERE) OBESITY DUE TO EXCESS CALORIES SNOMED Code(s): 891241802 (3) BMI 45.0-49.9, adult Status: Acute Code(s): Z68.42 - BODY MASS INDEX [BMI] 45.0-49.9, ADULT SNOMED Code(s): 561861912 (4) Sepsis Status: Acute Code(s): A41.9 - SEPSIS, UNSPECIFIED ORGANISM SNOMED Code(s): 93650092 (5) Anemia Status: Acute Code(s): D64.9 - ANEMIA, UNSPECIFIED SNOMED Code(s): 775455867 (6) Pneumonia due to COVID-19 virus Status: Acute Code(s): U07.1 - COVID-19; J12.82 - Pneumonia due to coronavirus disease 2019 SNOMED Code(s): 689694390785218475 (7) Inadequate dietary intake of protein Status: Acute Code(s): E63.9 - NUTRITIONAL DEFICIENCY, UNSPECIFIED SNOMED Code(s): 340675686 (8) Acute renal failure Status: Acute Code(s): N17.9 - ACUTE KIDNEY FAILURE, UNSPECIFIED SNOMED Code(s): 36376441 (9) Hyperglycemia Status: Acute Code(s): R73.9 - HYPERGLYCEMIA, UNSPECIFIED SNOMED Code(s): 84527744
[2020-10-27 19:53] LABS: Glucose,Whole Blood 231 mg/dL (75-99)
[2020-10-27 23:38] LABS: Glucose,Whole Blood 228 mg/dL (75-99)
[2020-10-28] MEDS: INSULIN ASPART (NovoLOG) 100 UNIT/ML VIAL SQ SCH ×7 (00:18→18:02)
[2020-10-28 06:01] LABS: Glucose,Whole Blood 190 mg/dL (75-99)
[2020-10-28] MEDS: NYSTATIN 100,000 UNIT/ML SUSP 500,000 UNIT/5 ML CUP PO SCH ×3 (06:05→18:03)
[2020-10-28] MEDS: SEVELAMER 800 MG TAB PO SCH ×3 (06:05→18:03)
[2020-10-28] MEDS: INSULIN DETEMIR (LEVEMIR) 100 UNIT/ML SYR SQ SCH ×2 (06:05→21:05)
[2020-10-28 06:17] LABS: Calcium 9.9 mg/dL (8.4-10.2); Potassium 4.6 mmol/L (3.5-5.1)
[2020-10-28] MEDS: HYDROmorphone 0.5 MG/0.5 ML SYRINGE IVP PRN ×4 (06:31→21:30)
[2020-10-28 06:58] LABS: Anisocytosis Slight; Basophils % (A) 0 %; Eosinophils # (A) 0.4 k/uL (0-0.7); Eosinophils % (A) 4 %; HCT 26.2 % (34.0-46.0); Hypochromasia Marked; Lymphocytes # (A) 1.2 k/uL (1.0-4.8); Lymphocytes % (A) 11 %; MCHC 30.5 g/dL (31.0-37.0); MCV 91.6 fL (80.0-100.0); Mean Platelet Volume 9.6; Monocytes # (A) 0.7 k/uL (0-1.0); Monocytes % (A) 7 %; Neutrophils # (A) 7.9 k/uL (1.3-7.7); Neutrophils % (A) 75 %; Platelet Count 241 k/uL (150-450); Poikilocytosis Slight; RBC 2.86 m/uL (3.80-5.40); RDW 16.9 % (11.5-15.5); WBC 10.5 k/uL (3.8-10.6)
[2020-10-28] MEDS: ALBUTEROL HFA INHALER INHALATION SCH ×4 (08:08→20:20)
[2020-10-28] MEDS ORDERED: QUEtiapine 50 MG TAB PO SCH (09:00)
[2020-10-28] MEDS: CHOLECALCIFEROL 25 MCG (1000 IU) TABLET PO SCH (10:55)
[2020-10-28] MEDS: CHLORHEXIDINE GLUCONATE 15 ML CUP MUCOUS MEM SCH ×2 (10:55→21:31)
[2020-10-28] MEDS: METOPROLOL TARTRATE 50 MG TAB PO SCH ×2 (10:55→21:31)
[2020-10-28] MEDS: ENOXAPARIN 30 MG/0.3 ML SYRINGE SQ SCH (10:55)
[2020-10-28] MEDS: ASCORBIC ACID 500 MG TAB PO SCH ×2 (10:55→21:31)
[2020-10-28] MEDS: PANTOPRAZOLE 40 MG/10 ML VIAL IVP SCH (10:56)
[2020-10-28] MEDS: ESCITALOPRAM 10 MG TAB PO SCH (10:56)
[2020-10-28] MEDS: HYDROPHILIC CREAM 180 GM TUBE TOPICAL SCH (10:57)
[2020-10-28] MEDS: DILTIAZEM ORAL 60 MG TAB PO SCH ×3 (10:57→21:39)
--- NOTE | 2020-10-28 11:16 | P.PN ---
Subjective Progress Note Date: 10/28/20 35-year-old female patient of Dr. Arroyo with past medical history of type 2 diabetes comes in with acute shortness of breath associated with high light sugars. Patient on admission was found to have a fever of 101.5 pulse rate 125 respiratory rate 20. Blood pressure 132/106. On chest x-ray obtained in the ER suggestive of bilateral infiltrates concerning for call with pneumonia. COVID PCR was positive. On admissions patient had an ABG with a pH of 7.14 pCO2 of 20, pO2 of 59, bicarb of 7. Patient's blood sugar on admission was 424 on assessment today patient's blood work patient had a sodium 135 potassium 5.4 chloride 123 bicarb less than 5 and creatinine 0.73. D-dimer was elevated on admission patient 9 28 patient given 1 L of IV fluids followed by normal saline running at 200 mL/h. Patient was positive for acetone on admission. She will anion gap closed and was switched to D5NS. Insulin drip was continued during the night and was switched to patient's home medication this morning. One dose of remdesiver was ordered. Apparently around noon, A- team was called on the patient secondary to hypoxia patient's oxygen saturation dropped to the 70s and 80s on 100% nonrebreather. Patient was switched to BiPAP on 18/12 and is doing better o FiO2 of 80%. ABG was obtained and ph was 7. 14 pCO2 of 28 bicarb of 7 pO2 of 17. Patient noted to have uncompensated metabolic acidosis with compensated respiratory alkalosis. Stat dose of 1 amp bicarb was given and followed by sodium bicarbonate drip. Insulin drip restarted. Patient's initiated on dexamethasone 6 mg IV twice a da y. Potassium phosphate ordered as phosphorus is low. Patient's repeat blood gases suggest a pH of 7.25, CO2 32 pO2 of 72 bicarb 14. I will not normal saline at 100 mL/h as patient's anion gap has increased. Patient given 1 dose of 2 mg of morphine with improvement in respiratory rate. One dose of Ativan 0.5 mg was given. Xanax 0.25 twice a day along with Ativan 0.5 IV every 6 hours ordered for the patient. Vitals were evaluated patient pulse 129 [id number]. She was moved to the ICU. Precedex drip was initiated. Lopressor was initiated at 25 twice a day. Metoprolol tartrate 5 mg IV every 6 hours. Systolic blood pressure more than 160. Started chest x-ray was obtained and suggest stable bilateral consolidation suggestive of COVID-19 pneumonia. 09/12 patient is seen in the ICU is currently mechanically ventilated and sedated on vent settings of respiratory rate 36, tidal volume 375 FiO2 80% PEEP of 18.. Vital signs reviewed patient had a temp of 100.4 pulse 150 respiratory rate 36 oxygen saturation 95% on 80% on fio2 .'s labs are reviewed which patient had a d-dimer 1.84 that is increased to 14.3. Arterial Blood gas suggest ph 7.35, CO2 40, po2 62, . Her BMP suggest a sodium 135 potassium 3.7 chloride 112 bicarb 21 creatinine 1.57 for calcitonin is 3.5 CRP is increased from 8.78.2 LDH is increased to 2614. Patient remains on Pneumovax, propofol drip. Lovenox increased to 50 subcu twice a day. Patient received 2 L of IV fluids. Continue IV fluids at 100 mL/h. Bicarb drip discontinued patient initiated on Zosyn 3.375 every 8 hours. Continue insulin drip at 4 units per hour. Patient is currently in prone positioning 09/13: Patient evaluated in the ICU remains on Ventilation continues to be sedated, in prone position. Vent settings are respiratory rate 36, tidal vital 375, FiO2 70% PEEP of 18. ABG shows pO2 of 82, PCO2 of 39, pH is 7.19. Latest labs show WBC 11.1, hemoglobin 13.2, d-dimer still pending, but yesterday was up to 14.3. Creatinine up to 3.4, BUN 24 sodium 137, potassium 4.0. Patient's urine output has been low, nephrology on consult. Bicarb drip increased to 100 miles an hour, receiving another liter of normal saline, she did have a ultrasound that showed unremarkable bilateral kidneys. Repeat chest x-ray showed bilateral lung infiltrates that are stable. Anion gap has closed, will start Lantus 10 units at at bedtime Novolog every 6 hours. 09/14: Patient is seen in the ICU, still currently mechanically ventilated and sedated. She continues in the prone position. Her oxygen quickly drops if she is not in prone. Patient's kidney function has worsened. Laboratory values show creatinine of 4.87, BUN 33, LDH 2191, C-reactive protein 2.7. ABG shows pH 7.32, pO2 of 60, pCO2 43. Patient is making almost no urine overnight. Nephrology is following patient continues on cefepime for urinary tract infection, culture is still pending. Vascular has been consulted for placement of temporary hemodialysis catheter for plans for dialysis. 09/15: Patient evaluated in the ICU, continues to be mechanically ventilated and sedated on assist control ventilation rate of 36, tidal volume 375, FiO2 100% and PEEP of 18. ABG today shows pO2 58, pCO2 of 45, and pH 7.35. She continues on tube feedings. Yesterday patient underwent ultrasound-guided right internal jugular non-tunneled hemodialysis catheter placement. Patient underwent hemodialysis treatment last night and plans have another hemodialysis treatment today. She continues to make almost no urine. She continues on cefepime for antibiotic coverage, and continues on Decadron and Lovenox. 09/16: Patient seen on follow-up remains in the ICU mechanically ventilated and sedated. She continues on assist control rate of 36, tidal volume 375, FiO2 100 % and PEEP of 20. PEEP had to be increased due to patient had to be in supine position for dialysis, will go back to prone position once dialysis is complete. ABG shows pH 7.32, pCO2 49, PaO2 61. Laboratory values showed WBC 11.2, hemoglobin 11, sodium 134, creatinine 4.44, BUN 38. Urine culture shows no growth, blood cultures show no growth to date. Repeat chest x-ray shows bilateral pleural effusions, correlate for ARDS, pulmonary edema, diffuse pneumonia, findings are stable from last exam. Patient does not require any pressors, blood pressure 133/57, heart rate 78. 5/16: Patient was evaluated in the ICU today for follow-up. She continues to be intubated and on mechanical ventilation. Current vent settings are tidal volume 375, FiO2 100% and PEEP of 20. ABG shows pH 7.37, pCO2 40, pO2 102. She continues with intermittent prone positioning. Patient continues to have almost no urine output, maintained on dialysis. Patient received dialysis yesterday without complication. Laboratory values revealed WBC 10.3, hemoglobin 10.4, sodium 132, potassium 3.1, BUN 33, creatinine 4.29, LDH 1913, C-reactive protein 1.3. Urine and sputum cultures are negative, blood cultures show no growth to date. Consult placed to dietary to start TPN[ ] 09/18: She remains in the intensive care unit intubated and on mechanical ventilation with tidal volume 375, FiO2 60 and PEEP of 20. Patient is being prone to daily at approximately 16 hours per day. Pulmonary medicine has added in Dr. Zhang to do PEG tube and trach today. Patient is not on vasopressors. Repeat blood work reveals WBC 12.6, hemoglobin 9.8, platelet count 212. Sodium 133, potassium 3.2, chloride 102, CO2 21, BUN 35 and creatinine 4.12. Blood sugar 126. Patient underwent hemodialysis yesterday with removal of 2 L and is scheduled again today with goal of 2-3 L and is scheduled again tomorrow. 09/19: She is scheduled for hemodialysis today and is off fentanyl temporarily. Patient is status post trach and PEG tube yesterday. And she remains on mechanical ventilation. Pulse ox 93-95%. She has been afebrile, heart rate 64, respiratory rate 36, blood pressure 115/50. Fentanyl is off to improve blood pressure for hemodialysis which is scheduled for today. Contacted vascular surgery about permanent hemodialysis catheter. Repeat blood work reveals WBC 14.3, hemoglobin 9.6, platelet count 200. D-dimer 6.48. LDH 1686. C-reactive protein 1.1. BUN 34 creatinine 3.81. Sodium 130, potassium 3.5, chloride 101, CO2 18. Blood sugars running between 101 198. Plan is to wean off Pneumovax today. Patient remains on insulin drip. Repeat chest x-ray reveals bilateral multifocal confluent opacities consistent with COVID-19. Some improved aeration periphery of the left lung and worsening opacities throughout the right lung. 09/20: She remains in the intensive care unit on mechanical ventilation. She has been afebrile, heart rate 65, respiratory rate 37, blood pressure 121/70, pulse ox 91-99%. Repeat blood work reveals WBC 14.5, hemoglobin 9.1, platelet count 216. D-dimer 6.13. Sodium 133, potassium 3.1, chloride 102, CO2 18, BUN 35 and creatinine 4.27. Blood sugars running between 128 and 143. LDH 1717. C- reactive protein 1.7. Patient remains on insulin drip which will be transiti oned to NovoLog scale every 6 hours. Patient is scheduled for permanent hemodialysis catheter placement today with vascular surgery. Repeat chest x-ray reveals stable diffuse bilateral interstitial and airspace disease. Possible small right effusion. His work is following for transfer to termite technician care facility. Do not anticipate discharge until next week. 09/21: Patient is undergoing hemodialysis. She remains on mechanical ventilation with tidal volume 375, FiO2 down to 45 and PEEP was decreased to 15. Patient is continued on propofol, fentanyl drips. She is on tube feedings at goal. Patient was taken off insulin drip yesterday and on scale only but blood sugars are running in the 200s, Levemir scheduled at bedtime will be added. Other blood work reveals WBC 13.3, hemoglobin 8.7, platelet count 192. Sodium 137, potassium 3.6, chloride 107, CO2 18, BUN 34 and creatinine 4.21. Repeat chest x-ray is stable. 09/22: She remains in the intensive care on mechanical ventilation with tidal volume 375, FiO2 of 50 and PEEP of 10. Pulse ox is running 96%. She is afebrile, heart rate in the 50s, respiratory rate 36, blood pressure 100/64. Repeat blood work reveals WBC 16.5, hemoglobin 8.9, platelet count 213. Sodium 134, potassium 3.7, chloride 103, CO2 21, BUN 34 and creatinine 3.89. Blood sugars running in the 200s to 324. Levemir increased to 16 units at bedtime and continue NovoLog scale every 6 hours. Patient is on tube feedings at goal. She has a Haley catheter in with a scant amount of dark/brown urine. Fecal management system is in place. Repeat chest x-ray reveals diffuse bilateral airspace infiltrates persist unchanged. Patient is scheduled for hemodialysis tomorrow morning on Friday. 09/23: Patient remains on mechanical ventilation with tidal volume 3.75, FiO2 50 and PEEP of 10. monitor car operator sinus rhythm. She has no urine output. Fecal management system is in place. She is undergoing dialysis at this time with plan for removal of 2-1/2 L. She has been afebrile, heart rate in the 50s, respiratory rate 36, blood pressure 108/76 and pulse ox 89%. WBC 13.6, hemoglobin 9.1, platelet count 194. Sodium 136, potassium 3.0 and was replaced, chloride 106, CO2 21, BUN 49 creatinine 5.31. Blood sugars are running between 182 and this morning 194. Patient was still in the 200s and 300s. Levemir last evening was increased to 16 units. Patient remains on propofol and fentanyl drips. Lovenox was increased to 60 mg twice daily. 09/24: PEEP was increased today to 20, tidal volume is at 375 and FiO2 of 50%. Patient has been afebrile. She has been started on levo fed. Repeat chest x- ray reveals bilateral multifocal confluent opacities consistent with Covid 19 or ARDS redemonstrated. Nephrology will plan dialysis for tomorrow for 3 L. Patient remains on propofol fentanyl and Nimbex. WBC 12.5, hemoglobin 9.8, platelet count 161. D-dimer 13.3. Sodium 132, potassium 3.4, chloride 102, CO2 20, BUN 48 and creatinine 4.67. Blood sugars extremely elevated to 96-409. LDH 2217. 09/25: Patient remains in the intensive care unit on mechanical ventilation with tidal volume 375, FiO2 50 and PEEP of 20. Patient is afebrile, heart rate 61, respiratory rate 36, blood pressure 102/56, pulse ox 97%. Repeat blood work reveals WBC 9.3, hemoglobin 8.5 and platelet count 171. Sodium 130, potassium 3.7, chloride 100, CO2 20, BUN 61 creatinine 5.65. Blood sugars have been elevated up to 455. Levemir increased to 20 units twice daily, NovoLog 5 units every 6 hours and continue NovoLog scale. Patient is scheduled for hemodialysis today. Repeat chest x-ray reveals bilateral multifocal and confluent opacities. Decadron and Lovenox dosing change by pulmonary. Patient is off norepinephrine. 09/26: Patient remains in the intensive care unit on mechanical ventilation with tidal volume 375, FiO2 50 and PEEP of 15. She has been afebrile, heart rate 91, blood pressure 114/68, pulse ox 99%. monitor car operator sinus rhythm. 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 Sodium 134, potassium 3.6, chloride 102, CO2 22, BUN 41 creatinine 4.21. Patient has improved blood sugars this morning running 150s and 160s. Diabetic medications were adjusted yesterday. Patient is awake and alert and interacting. Yesterday, patient had PICC line inserted by interventional radiology. Repeat chest x-ray reveals diffuse airspace infiltrates in both lung ann appear to progress slightly in the interval. 09/27: Patient remains in intensive care unit on mechanical ventilation with improvement of settings with tidal volume 375, FiO2 decreased to 40 and PEEP decreased to 10. Patient is on hemodialysis every other day and plan to remove 3 L today. Patient is more awake and alert. She is slow to respond but is able to follow simple commands. Blood sugars are running between 84 and 123. Repeat blood work reveals WBC 7.1, hemoglobin 8.1, platelets 152. Sodium 135, potassium 3.6, chloride 103, CO2 21, BUN 53 and creatinine 5.88. Repeat chest x-ray revealed cardiomegaly and pulmonary edema. Patient is on tube feedings:. Patient is not require vasopressors and is off sedation. Fecal management system remains in place for brown liquid stool. C. difficile was negative. 09/28: Patient remains on mechanical ventilation with tidal volume 375, FiO2 increased to 80 and PEEP increased to 18. Patient had a rough night was very anxious, no pain. Xanax 0.25 mg 3 times daily was added. There is concern for pulmonary embolism for which patient was started on heparin drip, she is unable to undergo CAT scan. Venous Doppler bilateral lower extremities was nondiagnostic due to extensive edema in obese patient but minimal imaging of the popliteal veins does show flow. Repeat echocardiogram has been ordered. Cefepime has also been ordered at 1 g IV piggyback every 24 hours as well as vancomycin, pharmacy dosing. Patient is back on fentanyl drip, propofol drip and norepinephrine. Blood sugars are elevated and insulin Levemir will be increased to 25 mg twice daily. Ferrlecit infusion has been ordered by nephrology for 4 days. Patient is undergoing hemodialysis today.temperature max 100.2, heart rate 134, respiratory rate 34, blood pressure 120/65, pulse ox 94%. monitor car operator is sinus tachycardia. Repeat blood work reveals WBC 16.9, hemoglobin 9.7, platelet count 216. D-dimer 8.81. Sodium 134, potassium 3.8, chloride 99, CO2 25, BUN 43 and creatinine 5.36. Blood sugars in the 200s. AST 40. 09/29 Patient had declined more last 48 hours require more sedation, patient is doing hemodialysis, respiratory failure is quite bit worse this time. Patient was inquired the pain is well back on fentanyl drip. Her vent set up with PEEP is limited but higher. No new finding on culture and her chest x-ray continues shows diffuse infiltrate persistent although there is a moderate interval improvement. 09/30 patient's was seen and evaluated. PEEP was reduced to 11 as patient is maintaining good saturation at the current vent settings. 10/01 patient was seen at bedside. She is currently on assist control rate of 28 white tidal volume 350 FiO2 50% and PEEP of 10 which has been reduced by pulmonary as patient name cleaning her oxygen saturation. Arm blood gas was obtained with a pH of 7.35 pCO2 37 pO2 of 63. She remains hemodynamically stable with no need for pressors. Labs were reviewed patient's BUN is 29 creatinine 3.93 glucose 122 albumin 2.2 sodium 131 chloride 19 hemoglobin is downtrending with a Hb of 7.3 no leukocytosis 7.1. Patient's urine output is mi nimal at this time. Her rate has increased to 129 and is currently on positive fluid balance even with dialysis. Last dialysis was done yesterday. Continue enteral feeding currently at goal. Antibiotic has been discontinued and continues to remain on DEXA methicillin 4 mg IV daily. 10/02 patient continues to be on trach support with mechanical ventilation. Patient was evaluated by wheat farmer and was switched to VC control as patient was noted to be double stacking on and off throughout the night. Respiratory rate continue to 28 tidal volume increased to 400 with a PEEP for Dr. Downey. Dariana woodward is maintaining oxygen saturation 91% on the current setting. According to the nurse bedside patient saturation drops significantly or she is moved or her sedation is dropped. Patient is currently on propofol drip, fentanyl drip. She did underwent dialysis today and was able to maintain her low pressure without the need of pressors. Labs reviewed today suggest a WBC of 6.7 hemoglobin of 7. 0 and d-dimer 3.9 bicarb 17 BUN 38 creatinine 4.8. LDH is 964. Sodium 1:30 likely secondary to volume overload. Urine sodium and urine osmolality ordered. Patient's glucose this morning is 146. Continue to remain on enteral feeding. Urine output is reduced. Fall catheter will be placed today. Continue to remain on dialysis. 10/03: Patient remains on mechanical ventilation and is back on propofol and fentanyl drips. Patient is currently on VC control with tidal volume 400, FiO2 55 and PEEP of 12. Patient still is not making any urine and is dialysis dependent with next treatment planned for tomorrow with removal of 3-3-1/2 L. PEG tube feedings are at goal. Fecal management system remains in place. At the time of evaluation, patient is off levophed. Repeat chest x-ray reveals st able diffuse bilateral airspace disease correlate for ARDS, pulmonary edema or diffuse pneumonia. Temperature max last evening was 101. Temperature currently 99, heart rate 106, respiratory rate 32, blood pressure 101/50, pulse ox 86%. Repeat blood work reveals WBC 6, hemoglobin 7.4, platelet count 160. D-dimer 4.05. Sodium 133, potassium 3.5, chloride 100, CO2 23, BUN 31 creatinine 3.8. Blood sugars are running between 100 and 170. Ferritin 1514. Liver function test normal. LDH 1016, C-reactive protein 13.6. Prognosis remains guarded. 10/04: Patient remains intubated on mechanical ventilation with tidal volume 400, FiO2 65, PEEP of 14. Patient continues to run fevers and repeat blood culture and urine and urine culture ordered for today. Haley catheter has been removed this patient has no significant urine output at about 20 mL per shift. BladderScan is monitored for greater than 300 and the patient is straight cathed. Hemoglobin is 6.8 and she has been ordered 41 unit of packed RBCs today. She is currently on propofol and fentanyl drips. She is scheduled for hemodialysis today. WBC 4.5, hemoglobin 6.8, platelet count 151. D-dimer 3.28. Sodium 132, potassium 4.1, chloride 100, CO2 22, BUN 37 creatinine 4.74. Blood sugars running between 97 and 110. Ferritin 1801. LDH 859. C-reactive protein 14.4. Chest x-ray reveals correlate for pneumonia, edema, ARDS. Prognosis remains guarded. 10/05: Patient remains in intensive care unit currently on mechanical ventilation with tidal volume 400, FiO2 was increased to 100 and PEEP is at 14. She continues to run fevers which have worsened with temperature max 103.1. She has been tachycardic in the 130s, blood pressure is marginal but not on vasopressors. Pulse ox currently 92%. Repeat blood work reveals WBC 5.5, hemoglobin 7.6, platelet count 190. D-dimer 2.7, ferritin 1770, LDH 932, C- reactive protein 21.4. Blood sugars are running between 100 1669. Electrolytes are normal. BUN 27 and creatinine 3.79. Pancultures were done yesterday including a straight cath for urine culture, sputum culture and blood culture. Arterial line was removed as well as midline. She is currently on propofol, fentanyl and started on Nimbex today. 10/06: Patient remains in the intensive care unit. Today patient in prone position and remains on mechanical ventilation with tidal volume 350, FiO2 65 and PEEP of 14. Her last documented fever was yesterday at 2 PM. Heart rate is in the 120s, respiratory rate 32, pulse ox 88-92%. CBC is unremarkable. Electrolytes are normal. BUN 30 creatinine 2.93. Blood sugars are running between 135 and 164. Cultures from October 04: Blood culture no growth, sputum culture finalized, urine culture finalized. Catheter tip culture is in process. Repeat chest x-ray shows bilateral interstitial infiltrates. Patient is on tube feedings of Nepro at goal of 30 ML's per hour. Patient underwent dialysis yesterday and is scheduled for repeat dialysis today. 10/07: Patient maintains in the intensive care unit intubated and on mechanical ventilation. She is receiving hemodialysis this morning has been every day. Plan is to remove 2-1/2 L today. Vent settings have changed today with tidal volume 350, FiO2 was increased to 100% and PEEP remains at 14. She has been continued on Nimbex, fentanyl, norepinephrine and propofol. Plan is to prone position patient following dialysis. Repeat chest x-ray reveals worsening interstitial infiltrates. BUN is 26 and creatinine 2.59. LDH 955, C-reactive protein 22.1. Prognosis remains poor. 10/08: Patient remains in intensive care unit intubated and on mechanical ventilation with tidal volume 350, FiO2 60, PEEP of 14. She is pronating today. She is scheduled for hemodialysis on a daily basis. She has been afebrile, heart rate 112, respiratory rate 36, blood pressure 161/88, pulse ox 93%. Rep eat blood work reveals WBC 9.9, hemoglobin 9.1, platelet count 320. Sodium 133, potassium 5.3, chloride 100, CO2 20, BUN 29 creatinine 2.44. Blood sugar running between 102 and 139. LDH 1026, C-reactive protein 19.7. 10/09: Patient is undergoing dialysis this morning. She continues to be intubated and on mechanical ventilation with tidal volume 350, 270 and PEEP of 14. Patient is also on propofol, Nimbex, norepinephrine and fentanyl drips. Repeat chest x-ray reveals persistent bilateral multifocal and confluent opacities consistent with Covid 19. She is afebrile, heart rate 116, respiratory rate 36, blood pressure 120/65, pulse ox 91%. Repeat blood work reveals WBC 5.4, hemoglobin 9.2, platelet count 216. D-dimer 2.67, ferritin 2568, LDH 794, C- reactive protein 13.9. Blood sugars have been running 90-104. Creatinine 1.64. She is on daily dialysis treatment. 10/10: She remains in the intensive care unit. She is now out of isolation as a repeat Covid test came back negative. She remains on mechanical ventilation with tidal volume 350, FiO2 70 and PEEP of 14. Patient is also on Nimbex, propofol, norepinephrine, fentanyl drips. She is on PEG tube feedings at goal and tolerating well. Repeat blood work reveals WBC 7.8, hemoglobin 7.5, platelet count 267. Sodium 139, potassium 3.9, chloride 109, CO2 20, BUN 20 creatinine 1.29. Blood sugars are running between 76 and 102. Scheduled NovoLog decreased to 3 units. Repeat chest x-ray reveals moderate cardiomegaly and continued pulmonary edema. Slight interval improvement. Patient is jing nued on daily hemodialysis. 10/11: Patient remains in intensive care unit on mechanical ventilation with tidal volume 325, FiO2 70, PEEP 14. She is currently being prone. She underwent hemodialysis this morning with removal of 4 L of fluid with plan to continue daily treatment. She is currently on Nimbex, fentanyl and propofol. No vasopressor at this time. Fecal management system remains in place. She is on tube feedings currently at hold due to prone positioning. Patient has been afebrile, heart rate 116, respiratory rate 36, blood pressure 100/58, pulse ox 93-96%. Repeat blood work reveals WBC 9.3, hemoglobin 8.1, platelet count 276. Sodium 136, potassium 4.3, chloride 103, CO2 20, BUN 20 creatinine 1.14. Blood sugars running between 133 and 202. 10/12: Patient remains in the intensive care unit. She is undergoing hemodialysis this morning. She's been afebrile, heart rate in the 120s, respiratory rate 32, blood pressure 102/65. She is not on vasopressors. She is continued on Nimbex, fentanyl and propofol. Vent settings are currently tidal volume 325, FiO2 70, PEEP 14. Total platelet count 273. Sodium 133, potassium 4.7, chloride 100, CO2 19, BUN 21 creatinine 0.91. Blood sugars running between 121 and 143. 10/13: Patient remain in the ICU she is on hemodialysis daily, she is still on the vent with a PEEP of 14 and FiO2 of 70. Her oxygenation is marginal pulse rate still high. Patient had scratched cornea was seen in ophthalmology decided to keep doing eyedrops along with eye patch at this point. Prognosis still very bad this point. 10/14: She remains on mechanical ventilation with tidal volume 325, FiO2 70% and PEEP of 14. She did require label fed last evening for about 6 hours. She did not tolerate pronating yesterday. She is undergoing dialysis this morning with plan for removal of 4 L. Blood sugars have been low and IV fluids changed to D1 0 until blood sugars have recovered. Levemir and scheduled NovoLog discontinued. Patient is on tube feedings at goal there's been no change in this. 10/15 patient remains on mechanical ventilation in the intensive care unit. FiO2 still at 70%, PEEP of 18. Blood sugars have improved since medications were adjusted. White blood cells 33.9, hemoglobin 8.5, sodium 135, BUN 19, creatinine 0.96. Patient to receive dialysis again today. Patient did run a low-grade fever throughout the night and pro calcitonin level is ordered. Chest x-ray showed continued diffuse bilateral airspace disease. Patient remains on tube feedings at goal. 10/16: Patient remains on mechanical ventilation with tidal volume 300, FiO2 70, PEEP of 15. Fecal management system is out. She is currently on low dose of norepinephrine. She is also on fentanyl drip, propofol drip, rocuronium drip. Heart rate is running in the 130s, sinus rhythm, blood pressure 121/63, pulse ox 95%. Patient is been afebrile. Repeat blood work reveals WBC 18.9, hemoglobin 7.5, platelet count 291. Sodium 135, potassium 4.2, chloride 101, CO2 19, BUN 25 and creatinine 1.36. Blood sugars are running between 143 and 199. Patient is on scale insulin only. Repeat chest x-ray reveals persistent bilateral multifocal and completed opacities consistent with Covid 19. 10/17: Patient remains on mechanical ventilation with tidal volume 300, FiO2 50, PEEP of 14. She is currently receiving hemodialysis. The patient is having yellow-colored drainage from the trach site. This is going to be culture today. Repeat blood work reveals WBC of 24, hemoglobin 7.3 and platelet count 310. Sodium 136, potassium 4.1, chloride 101, CO2 19, BUN 24 creatinine 1.43. Blood sugar 139. Capillary blood glucose running 147 and 189. Repeat chest x-ray is unchanged. Patient had increased respiratory rate 40s and 50s with oxygen saturation of 87 and now was increased and Seroquel added this morning. Prognosis remains guarded. 10/18: Patient remains on mechanical ventilation with tidal volume 300, FiO2 60, PEEP has been decreased to 12. Patient will need a PEEP of 8 in order to transfer to long-term care. She is currently on fentanyl drip and Precedex drip. Patient is tracking when her name is stated. She seems to be slightly im proved today. Patient has been afebrile, heart rate 106, respiratory rate 32, blood pressure 110/61, pulse ox 98%. Repeat blood work reveals WBC 30.3, hemoglobin 7.2, platelet count 350. Sodium 139, potassium 4.2, chloride 103, CO2 20, BUN 23 creatinine 1.79. Blood sugars are increasing running up 299. Patient will be placed on Levemir. Secretions from tracheotomy sent for culture and in process. She is currently undergoing hemodialysis. 10/23: Patient remains in the intensive care unit on mechanical ventilation with tidal volume 300, FiO2 65 and PEEP of 10. monitor car operator has been in a sinus rhythm. Patient does open her eyes and appears to be tracking. Blood sugars have been elevated. Levemir will be increased to 40 units daily and scheduled NovoLog increased to 12 units and continue NovoLog every 6 hours per scale. Patient is receiving hemodialysis today. She is not currently on vasopressors. Patient is on Precedex drip only. Antibiotics in the form of cefepime were started on October 18. Patient has been afebrile, heart rate 126, respiratory rate 36, blood pressure 163/105. Pulse ox 91%. Repeat blood work reveals WBC 16.0, hemoglobin 7.2, platelet count 208. Electrolytes are within normal limits. BUN 62 and creatinine 2.43. Blood sugars running between 259-321. Most recent blood culture from October 22 is no growth at 24 hours. Repeat chest x-ray reveals cardiomegaly and persistent bilateral pulmonary edema. 10/24: Patient is awake, eyes are open and tracking, she is able to follow simple commands. Severe generalized weakness noted. Precedex gtt has been discontinued. Patient is receiving hemodialysis. Her blood sugars have remained elevated for which Levemir increased to 25 units twice daily along with 15 units of NovoLog every 6 hours along with scale. Tidal volume 330, FiO2 60, PEEP of 8. transitions manager rn and clinical social work aide following closely. Anticipate possible discharge by the end of next week to long-term care facility. 10/25: Patient remains in the intensive care unit on mechanical ventilation. Tidal volume 350, FiO2 60, PEEP 8. She is receiving hemodialysis this morning. Her heart rate remains elevated in the 130s. Pulmonary as started her on Cardizem at 60 mg 3 times daily which has not had any improved effect. We'll start the patient on Lopressor 25 mg twice daily. Patient has been afebrile, heart rate respiratory rate 32, blood pressure 151/91, pulse ox 98%. Patient is been transfuse 1 unit of packed RBCs today. Patient's mental status is improving and patient is able to follow simple commands. WBC 12.2, hemoglobin 6.3, platelet count 196. Sodium 135 otherwise looked lites are normal, BUN 48 creatinine 1.99. Blood sugars are running between 120 and 172. Levemir has been increased to 30 mg twice daily continue 15 units of NovoLog every 6 hours with scale. 10/26: Patient remains in intensive care unit, on mechanical ventilation with tidal volume 375, FiO2 50, PEEP of 8. Patient's heart rate remains elevated 120s and Lopressor increased to 50 mg twice daily. Patient seems to be quite anxious and depressed. We will decrease Seroquel to 50 mg twice daily and start patient on Lexapro. Patient received her first dose of Xanax this morning but this did not seem to help heart rate either. She has been afebrile, heart rate 128, blood pressure 149/79, pulse ox 93%. Repeat hemoglobin 7.3. Sodium 135, potassium 3.9, chloride 90, CO2 30, BUN 45 and creatinine 1.94. Blood sugar are improved running between 117-194. We will make further adjustments to insulin and to increase long-acting to 35 units twice daily and decrease NovoLog scheduled to 7 units and continue NovoLog scale. There are problems with patient's trach and consequently placed with [facility]ound [facility]. General surgery to reevaluate trach. 10/27: Patient is complaining of nausea today. Concerned that this is related to Lexapro. We will further decrease Seroquel to 50 mg at bedtime. Patient is being bladder scanned and last bladder scan wasn't 125 mL. She does not have Haley catheter. No fecal management system. She is having a bowel movement about 3 per day. Plan is for CPAP trial today. She is currently on mechanical ventilation with tidal volume 375, FiO2 50 and PEEP of 8. She has been afebrile, heart rate 105 which is much improved from the last few days. Blood pressure 145/88, pulse ox 94%. There is a new consult in place for Dr. Clemente regarding exchanging the trach and possible debridement at site. WBC 11.4, hemoglobin 8.2, blood count 218. Sodium 136, potassium 4.1, chloride 97, CO2 31, BUN 47 creatinine 1.97. Blood sugars running between 129 and 204. We have changed long acting insulin to 35 units twice daily and continue NovoLog 7 units every 6 hours and scale every 6 hours. Nephrology may be decreasing frequency of dialysis treatments. Anticipate probable discharge to long-term care next week. 10/28: Patient was complaining of nausea today which has resolved. CPAP trial will continue today. She is currently on mechanical ventilation with a tidal volume 375, FiO2 of 50, PEEP of 8. She is afebrile, heart rate 108 which continues to show improvement. Blood pressure 133/87, pulse ox 99%. Patient is able to follow commands. And answers appropriately with nodding her head. WBC 10.5, hemoglobin 8.0, potassium 4.6, BUN 46, creatinine 1.96. Patient is currently receiving hemodialysis. trach and possible debridement at the site.REVIEW OF SYSTEMS Unable to obtain due to mechanical ventilation. PHYSICAL EXAMINATION Gen: This is is a 35-year-old black female, patient is on mechanical ventilation, appears to be comfortable. HEENT: Head is atraumatic, normocephalic. Pupils equal, round. Sclerae is anicteric. Eyes are open and tracking. Tracheostomy midline with surrounding erythema . NECK: Supple. No JVD. No lymphadenopathy. No thyromegaly. LUNGS: Lung sounds are diminished at the bases but otherwise clear to auscultation. No intercostal retractions. HEART: Regular rate and rhythm. No murmur. monitor car operator sinus tachycardia. ABDOMEN: Soft. Bowel sounds are present. No masses. No tenderness. EXTREMITIES: Trace bilateral pedal edema. No calf tenderness. NEUROLOGICAL: Patient is awake and able to follow simple commands, significant weakness. ASSESSMENT AND PLAN 1. Acute hypoxic respiratory failure secondary to Covid 19 pneumonia and possible bacterial pneumonia. Patient was intubated on September 11. She is status post 1 dose of Remdesivir and 1 dose of Tocilizumab. Continue Ventolin inhaler 4 times daily, Lovenox 30 mg subcu daily, supplements. Status post PEG tube and trach. Continue cefepime. 2. Acute diabetic ketoacidosis secondary to Covid 19 pneumonia, uncontrolled with hyperglycemia. Levemir increased to 35 units twice daily and scheduled NovoLog increased to 7 units every 6 hours and continue NovoLog scale every 6 hours. 3. Metabolic encephalopathy secondary to Covid 19 and DKA. 4. Sepsis and septic shock secondary to Covid 19 pneumonia with multiorgan failure. Continue as in #1. Trach drainage cultured. General surgery to ree valuate trach and wound care consult has been added. 5. Acute metabolic acidosis secondary to acute DKA, Covid 19 and acute kidney injury. Renvela 1600 mg 3 times daily. 6. Diabetes mellitus type 2 uncontrolled with A1c 13.6. Continue as above. 7. Hypophosphatemia status post replacement. 8. Hyperkalemia secondary to DKA, resolved. 9. Sinus tachycardia secondary to sepsis, volume deficiency. Patient is on Cardizem 60 mg 3 times daily, and Lopressor increased to 50 mg twice daily. 10. Acute kidney injury secondary to ATN secondary to Covid 19 and DKA. Continue daily hemodialysis. Permanent dialysis catheter placed. 11. Possible acute gram-negative pneumonia versus MRSA pneumonia. Completed course of antibiotics. 12. Hypertension. 13. Morbid obesity with BMI of 53. 14. Situational depression and anxiety. Seroquel decreased to 50 mgat bedtime, continue Lexapro 10 mg daily and Xanax 0.25 mg twice daily as needed. 15. DVT prophylaxis. Lovenox. 16. GI prophylaxis. Protonix 40 mg IV push daily. 17. Stage II pressure ulcer to trach site. Currently utilizing absorptive silver dressing. CODE STATUS: Full code Prognosis guarded. DISCHARGE PLAN Sales Financial Analyst Acute Care next week Impression and plan of care have been directed as dictated by the signing physician. Rika Edouard nurse practitioner acting as scribe for signing physician. Objective - Vital Signs Vital signs: Vital Signs Temp 98.3 F 10/28/20 08:00 Pulse 108 H 10/28/20 10:00 Resp 29 H 10/28/20 10:00 BP 133/87 10/28/20 10:00 Pulse Ox 99 10/28/20 10:00 Intake & Output 10/27/20 10/28/20 10/28/20 18:59 06:59 18:59 Intake Total 1212 816 294 Output Total 4000 0 0 Balance -2788 816 294 Weight 98.6 kg 94.8 kg Intake: IV 120 110 40 0.9 Normal Saline @ KVO 120 110 40 Tube Feeding 672 616 224 Other 420 90 30 Output: Urine 0 0 0 Hemodialysis 4000 Other: # Bowel Movements 1 ABP, PAP, CO, CI - Last Documented Arterial Blood Pressure 136/76 - Labs CBC & Chem 7: 10/28/20 05:42 10/28/20 05:42 Labs: Abnormal Lab Results - Last 24 Hours (Table) 10/27/20 10/27/20 10/27/20 Range/Units 11:30 17:42 19:51 RBC (3.80-5.40) m/uL Hgb (11.4-16.0) gm/dL Hct (34.0-46.0) % MCHC (31.0-37.0) g/dL RDW (11.5-15.5) % Neutrophils # (1.3-7.7) k/uL Sodium (137-145) mmol/L BUN (7-17) mg/dL Creatinine (0.52-1.04) mg/dL Glucose (74-99) mg/dL POC Glucose (mg/dL) 129 H 237 H 231 H (75-99) mg/dL 10/27/20 10/28/20 10/28/20 Range/Units 23:37 05:42 05:42 RBC 2.86 L (3.80-5.40) m/uL Hgb 8.0 L (11.4-16.0) gm/dL Hct 26.2 L (34.0-46.0) % MCHC 30.5 L (31.0-37.0) g/dL RDW 16.9 H (11.5-15.5) % Neutrophils # 7.9 H (1.3-7.7) k/uL Sodium 134 L (137-145) mmol/L BUN 46 H (7-17) mg/dL Creatinine 1.96 H (0.52-1.04) mg/dL Glucose 173 H (74-99) mg/dL POC Glucose (mg/dL) 228 H (75-99) mg/dL 10/28/20 Range/Units 06:00 RBC (3.80-5.40) m/uL Hgb (11.4-16.0) gm/dL Hct (34.0-46.0) % MCHC (31.0-37.0) g/dL RDW (11.5-15.5) % Neutrophils # (1.3-7.7) k/uL Sodium (137-145) mmol/L BUN (7-17) mg/dL Creatinine (0.52-1.04) mg/dL Glucose (74-99) mg/dL POC Glucose (mg/dL) 190 H (75-99) mg/dL Microbiology - Last 24 Hours (Table) 10/22/20 09:36 Blood Culture - Preliminary Blood No Growth after 120 hours Assessment and Plan (1) Non-pressure chronic ulcer of skin of other sites with fat layer exposed Current Visit: Yes Status: Acute Code(s): L98.492 - NON-PRS CHRONIC ULCER OF SKIN OF SITES W FAT LAYER EXPOSED SNOMED Code(s): 72661093 (2) Diabetes with skin ulcer Current Visit: Yes Status: Acute Code(s): E11.622 - TYPE 2 DIABETES MELLITUS WITH OTHER SKIN ULCER; L98.499 - NON-PRESSURE CHRONIC ULCER OF SKIN OF SITES W UNSP SEVERITY SNOMED Code(s): 09784548
[2020-10-28] MEDS: NYSTATIN 100,000 UNIT/GM POWD 15 GM TOPICAL SCH ×3 (11:26→21:39)
[2020-10-28 12:27] LABS: Glucose,Whole Blood 230 mg/dL (75-99)
[2020-10-28] MEDS: ALPRAZolam 0.25 MG TAB PO PRN ×2 (12:29→17:32)
--- NOTE | 2020-10-28 13:08 | P.PN ---
Subjective Progress Note Date: 10/28/20 Principal diagnosis: Acute hypoxic respiratory failure secondary to COVID-19 pneumonia and ARDS secondary to COVID-19 pneumonia 10/22/2020, I'm seeing the patient for a follow-up. This morning, she is on a Precedex drip at 0.6 micrograms per kilogram per hour.she is awake. She communicates well. She is barely able to move her fingers and toes pH is unable to raise them against gravity. She has profound weakness. Also, the patient is still on mechanical ventilator. She assist-control mode rate of 32 with a tidal volume of 300 and FiO2 of 60% with a PEEP of 10. Blood gases from today showed a pH of 7.38 with a pCO2 of 48 and pO2 of 65. The chest x-ray from today shows no significant interval change in the patient that she is back to Diffuse bilateral pulmonary infiltrates unchanged from yesterday's evaluation. There is some cardiomegaly. No significant orotracheal secretions. On examination she has some scattered rhonchi. Her previous sputum culture was positive for Acinetobacter and the patient is currently on IV cefepime. Her white cell count has dropped in the morning white cell count today is at 13.3. Nevertheless, overnight, the patient had spikes of temperature with a T-max of 11.3. Repeat cultures will be done accordingly. The patient is currently off steroids. The patient's is slightly tachycardic and we have started on oral Cardizem for rate control. She is in sinus tachycardia. She is also slightly tachypneic. She is uncertain 400 mg by mouth twice a day. No other significant events overnight. He is tolerating her enteral feeding for nutritional support. Her last bout of dialysis was yesterday. Her volume status is improved considerably.She is post prolonged respiratory failure due to COVID-19 related ARDS/pneumonia.the blood sugars are slightly elevated. he is currently off Decadron and increased the Levemir dose for a tighter blood sugar control.I made an adjustment and increase her Levemir insulin up to 30 units once a day along with a slight scale coverage. Patient was reevaluated today on 10/23/2020, patient remains in ICU remains intubated and mechanically ventilated. Patient is on volume control plus rate of 300,And I increased the volume up to 350. She is on rate of 32FiO2 was increased to 65% PEEP remains at 10 EGD this morning showed a pO2 of 60 pCO2 of 50 pH of 7.32. Patient is off all narcotics and paralytics, she is however on Precedex at 0.4 mcg/kg/m. She is still receiving tube feeding via PEG tube. She is on vital AF at 56 mL/hour. Patient did not receive hemodialysis yesterday, however she is scheduled to have hemodialysis today. Remains tachycardic, but hemodynamically stable not requiring pressors at this point. Patient is on Cardizem to control her sinus tachycardia. Chest x-ray continues to show evidence of bilateral interstitial infiltrates secondary to ARDS and s uspect some component of fluid overload secondary to renal failure. No dialysis was done yesterday. Her peak airway pressure is 30 . WBC count is 16 hemoglobin is 7.2 platelets are 2086 metabolic profile is normal except BUN of 62 creatinine 2.43. Blood sugar is 327 remains on cefepime at 1 g every 24 hours. Patient is also on Lovenox at 30 mg subcu daily. She is also on Seroquel at 100 twice a day. Protonix 40 mg IV push daily. Patient was reevaluated today on 10/24/2020, remains in the ICU, intubated and mechanically ventilated. Patient is on assist control rate of 3 to tidal volume of 350 and I increased that up to 375 patient had a bit of a cough leak. She is on 60% FiO2 and PEEP is at 10 and I cut it down to 8. Last ABG this morning on 60% showed a pO2 of 66 pCO2 of 54 pH of 7.33. Patient remains on hemodialysis, yesterday she had 4 L off. Last night she had an episode of nonsustained ventricular tachycardia without any symptoms. She had a relatively normal labs. Patient remains on tube feeding using vital AF, at goal 56 mL per hour. On the ventilator, patient seems to be a bit tachypneic, her peak airway pressure is 30 5O pressure is 24. Chest x-ray continues to show bilateral interstitial infiltrates. CBC today is relatively normal hemoglobin is 7.6. Basic metabolic profile is normal. BUN is 54 creatinine 2.01 Reevaluated today on 10/25/2020, remains intubated and mechanically ventilated. Patient is now on assist control rate of 32. FiO2 of 55% but I increased it up to 60%. PEEP is at 8 and remains at 8. The volume is 375. No ABG done today, patient is about to receive hemodialysis today. She had 4 L of fluids removed by hemodialysis yesterday. Patient is to receive 1 unit of packed RBCs today for a hemoglobin of 6.3. This will be given during her hemodialysis today. Chest x-ray is showing worsening bilateral interstitial edema and possibly underlying ARDS. Patient remains on enteral feeding using vital AF at 56 mL per hour. Patient remained generally weak, and obviously she has severe critical illness polyneuropathy and polymyopathy. All labs were reviewed today. Again she has WBC of 12.2 hemoglobin 6.3 electrolytes are normal BUN is 48 creatinine is 1.99. Sputum from 10/30 showing gram-negative bacilli, previously she had a Citrobacter, and she remains on cefepime. Patient was reevaluated today on 10/26/2020, patient remains in the ICU, remains intubated and mechanically ventilated. Patient is presently undergoing hemodialysis. She is on assist control rate of 32.tidal volume is 375 FiO2 is 50% and PEEP is 8. ABG showed a pO2 of 60 pCO2 46 pH of 7.43. Chest x-ray continues to show bilateral interstitial infiltrates and ARDS. Possibly interstitial edema. Patient remains on enteral feeding using vital AF at 56 mL per hour. Remains on cefepime. Remains on hemodialysis daily. She is hemodynamically stable not requiring any pressors. Patient has severe critical illness polyneuropathy and myopathy, unable to wean the and her ABG remains marginal. Physical therapy is evaluating the patient. And we are in the process of considering eventually sending the patient to LTAC. Electrolytes are normal BUN is 45 creatinine is 1.94 CBC is relatively normal hemoglobin is 7.3. Reevaluated today on 10/27/2020, patient remains in the ICU, remains intubated and mechanically ventilated, patient is being ventilated via tracheostomy. She is on assist control rate of 32. Tidal volume of 375 FiO2 50% and PEEP is at 8. Chest x-ray continues to show evidence of interstitial edema and ARDS. Patient is scheduled to have hemodialysis again today. Patient is awake, generally weak and profoundly weak, follows simple instructions, desaturates easily with minimal coughing or any activity. Chest x-ray is showing improvement but nowhere near clearing. Patient is on enteral feeding, she is receiving vital AF at 56 mL per hour. Yesterday I consulted surgery to evaluate the tracheostomy site, apparently the surgeon who performed the tracheostomy is not available, and I'm recommending ENT evaluation and I'm wondering if the patient would require tracheoplasty. Patient will be given a trial of pressure support of 14 and CPAP today. She will be dialyzed today. She remains on cefepime. And she remains on multiple meds as listed below. Including cardiac meds and antibiotics/cefepime. W see count today is 11.4 hemoglobin is 8.2 electrolytes are normal BUN is 47 creatinine is 1.97 Reevaluated today on 10/28/2020, patient remains in the ICU, intubated and mechanically ventilated. Patient tolerated yesterday . And a half hours of weaning with pressure support and CPAP. Patient was placed on pressure support of 15 and CPAP of 5. And we'll plan to the same thing possibly today with pressure support and CPAP possibly as a pressure support of 12. Patient is presently receiving dialysis again. Her O2 saturation is in the 100% range on 50% and she is on PEEP of 8 today I cut her down to 45% and I cut down the PEEP down to 6. Overall the patient is demonstrating significant improvement. Her assist control rate now is 3 to tidal volume is volume control +375 FiO2 is down to 45% PEEP is down to 6. Patient is awake, appropriate, significantly improved since the last few days. CBC is relatively normal hemoglobin is 8 electrolytes are normal BUN is 46 creatinine 1.96 Objective - Vital Signs Vital signs: Vital Signs Temp 98.4 F 10/28/20 12:00 Pulse 101 H 10/28/20 12:00 Resp 32 H 10/28/20 12:00 BP 115/70 10/28/20 12:00 Pulse Ox 97 10/28/20 12:00 Intake & Output 10/27/20 10/28/20 10/28/20 18:59 06:59 18:59 Intake Total 1212 816 456 Output Total 4000 0 0 Balance -2788 816 456 Weight 98.6 kg 94.8 kg 94.8 kg Intake: IV 120 110 60 0.9 Normal Saline @ KVO 120 110 60 Tube Feeding 672 616 336 Other 420 90 60 Output: Urine 0 0 0 Hemodialysis 4000 Other: # Bowel Movements 1 ABP, PAP, CO, CI - Last Documented Arterial Blood Pressure 136/76 - Exam GENERAL EXAM: Revealed a 35-year-old female, on mechanical ventilation, pleasant, asymptomatic HEAD: Normocephalic/atraumatic. Tracheostomy is intact. Ongoing cough leak is noted. Dressing on the tracheostomy seems to be clean. EENT: PERRLA, EOMI, nonicteric, no neck masses, no JVD, CHEST: No chest wall deformity. Symmetrical expansion. LUNGS: Diminished breath sounds at the bases no rhonchi or wheezes CVS: normal S1 and S2, no S3 gallop, no murmur. ABDOMEN: Obese soft nontender no megaly no rebound no guarding. PEG tube is intact. EXTREMITIES: No clubbing, 1+ bipedal edema, no cyanosis, 2+ pulses and upper and lower extremities. Psychiatric: Normal mood, affect, normal mental status examination SKIN: No rashes, tracheostomy site is covered with sterile dressing. CENTRAL NERVOUS SYSTEM: Profound weakness noted bilaterally. Alert, oriented, no gross focal deficit other than profound weakness - Labs CBC & Chem 7: 10/28/20 05:42 10/28/20 05:42 Labs: Abnormal Lab Results - Last 24 Hours (Table) 10/27/20 10/27/20 10/27/20 Range/Units 17:42 19:51 23:37 RBC (3.80-5.40) m/uL Hgb (11.4-16.0) gm/dL Hct (34.0-46.0) % MCHC (31.0-37.0) g/dL RDW (11.5-15.5) % Neutrophils # (1.3-7.7) k/uL Sodium (137-145) mmol/L BUN (7-17) mg/dL Creatinine (0.52-1.04) mg/dL Glucose (74-99) mg/dL POC Glucose (mg/dL) 237 H 231 H 228 H (75-99) mg/dL 10/28/20 10/28/20 10/28/20 Range/Units 05:42 05:42 06:00 RBC 2.86 L (3.80-5.40) m/uL Hgb 8.0 L (11.4-16.0) gm/dL Hct 26.2 L (34.0-46.0) % MCHC 30.5 L (31.0-37.0) g/dL RDW 16.9 H (11.5-15.5) % Neutrophils # 7.9 H (1.3-7.7) k/uL Sodium 134 L (137-145) mmol/L BUN 46 H (7-17) mg/dL Creatinine 1.96 H (0.52-1.04) mg/dL Glucose 173 H (74-99) mg/dL POC Glucose (mg/dL) 190 H (75-99) mg/dL 10/28/20 Range/Units 12:25 RBC (3.80-5.40) m/uL Hgb (11.4-16.0) gm/dL Hct (34.0-46.0) % MCHC (31.0-37.0) g/dL RDW (11.5-15.5) % Neutrophils # (1.3-7.7) k/uL Sodium (137-145) mmol/L BUN (7-17) mg/dL Creatinine (0.52-1.04) mg/dL Glucose (74-99) mg/dL POC Glucose (mg/dL) 230 H (75-99) mg/dL Microbiology - Last 24 Hours (Table) 10/22/20 09:36 Blood Culture - Final Blood No Growth after 144 hours Assessment and Plan Assessment: Impression: Acute hypoxic respiratory failure secondary to COVID-19 pneumonia and ARDS secondary to COVID-19 pneumonia, patient was transferred to the ICU on 09/11, intubated on 09/11, received REM on 09/11, received T OCI on 09/11, tracheostomy and PEG tube placement on 09/18 remains on mechanical ventilation with volume control plus mode 375, tidal volume, FiO2 50% PEEP of 8 rate of 32 Acute kidney injury with complete shutdown of urine output/anuria, requiring hemodialysis. Remains on hemodialysis Acute diabetic ketoacidosis and COVID-19 pneumonia on her initial presentation. Sepsis secondary to COVID-19 pneumonia Type 2 diabetes poorly controlled. Hemoglobin A1c of 13.6. Elevated inflammatory markers secondary to acute COVID-19 pneumonia History of hypertension. Generalized anxiety disorder. Morbid obesity BMI of 54.2. Status post tracheostomy and PEG tube placement on 09/18. Corneal injury, punctate keratitis left eye. Acinetobacter in sputum, patient remains on cefepime. Critical illness polyneuropathy and myopathy Episodic fever, presently under control. Non sustained ventricular tachycardia. Recommendation: Continue ventilatory support. We'll try pressure support of 12 and CPAP today again, as a form of weaning. Continue physical therapy. Continue insulin and adjust dose accordingly. Continue Seroquel. Daily at bedtime. Continue cefepime for Acinetobacter infection. Continue dialysis as per nephrology on the case. Continue Lovenox 30 mg subcu daily Continue enteral feeding/nutrition support. Continue GI and DVT prophylaxis. Discharge planning to LTAC is in progress. In the meantime we'll continue daily trials of weaning with pressure support and CPAP, and hopefully tomorrow we co uld try the patient on trach collar. Time with Patient: Less than 30
--- NOTE | 2020-10-28 13:52 | PN ---
PROGRESS NOTE Patient is seen for followup for acute kidney injury, currently dialysis dependent, oliguric and maintained on daily dialysis. They have been getting about 4-4.3 L of ultrafiltration. The patient is currently doing very well. She is awake. She is seen on dialysis tolerating her treatment well. PHYSICAL EXAMINATION: Blood pressure this morning was 133/87, heart rate of 100 per minute, patient is afebrile. Examination of the heart S1, S2. Examination of lungs, bilateral breath sounds are heard. Examination of lower extremities shows much improved edema. [employer] exam shows patient is following commands. She is awake. LAB: Show hemoglobin 8.0, sodium 134, potassium 4.6, BUN 46 serum creatinine 1.96. ASSESSMENT: 1. Acute kidney Injury currently oliguric and dialysis dependent, receiving almost daily treatments with UF of about 4-4.2 L. 2. Volume overload, significantly improved. 3. Acute hypoxic respiratory failure currently on the vent, doing much better. 4. Pneumonia with sputum culture growing Acinetobacter currently, maintained on antibiotics. 5. COVID pneumonia/ARDS, seems to have improved. 6. Anemia, no active bleeding noted, maintained on Aranesp. PLAN: Next treatment will be on Friday10/30/2020. MMODL / IJN: [id number] /
[2020-10-28] MEDS: CEFEPIME 1 GM in SODIUM CHLORIDE 0.9% 50 ML IVPB SCH (14:11)
[2020-10-28 18:00] LABS: Glucose,Whole Blood 141 mg/dL (75-99)
[2020-10-28 21:01] LABS: Glucose,Whole Blood 159 mg/dL (75-99)
[2020-10-28] MEDS: QUEtiapine 50 MG TAB PO SCH (21:38)
[2020-10-29 00:08] LABS: Glucose,Whole Blood 180 mg/dL (75-99)
[2020-10-29] MEDS: SEVELAMER 800 MG TAB PO SCH ×4 (00:12→18:06)
[2020-10-29] MEDS: INSULIN ASPART (NovoLOG) 100 UNIT/ML VIAL SQ SCH ×8 (00:12→18:06)
[2020-10-29] MEDS: NYSTATIN 100,000 UNIT/ML SUSP 500,000 UNIT/5 ML CUP PO SCH ×4 (00:13→18:06)
[2020-10-29] MEDS: HYDROmorphone 0.5 MG/0.5 ML SYRINGE IVP PRN ×3 (03:13→19:41)
[2020-10-29 04:00] LABS: HCT 22.4 % (34.0-46.0); HGB 7.3 gm/dL (11.4-16.0); MCH 28.5 pg (25.0-35.0); MCHC 32.5 g/dL (31.0-37.0); MCV 87.6 fL (80.0-100.0); Platelet Count 242 k/uL (150-450); RBC 2.56 m/uL (3.80-5.40); RDW 16.7 % (11.5-15.5); WBC 9.9 k/uL (3.8-10.6)
[2020-10-29 04:01] LABS: Anisocytosis Slight; Basophils # (A) 0.1 k/uL (0-0.2); Basophils % (A) 1 %; Eosinophils # (A) 0.5 k/uL (0-0.7); Eosinophils % (A) 5 %; Hypochromasia Moderate; Lymphocytes # (A) 1.1 k/uL (1.0-4.8); Lymphocytes % (A) 11 %; Mean Platelet Volume 9.3; Monocytes # (A) 0.7 k/uL (0-1.0); Monocytes % (A) 7 %; Neutrophils # (A) 7.4 k/uL (1.3-7.7); Neutrophils % (A) 75 %; Poikilocytosis Slight
[2020-10-29 04:08] LABS: Calcium 9.8 mg/dL (8.4-10.2); Potassium 4.5 mmol/L (3.5-5.1)
[2020-10-29 06:17] LABS: Glucose,Whole Blood 172 mg/dL (75-99)
[2020-10-29] MEDS: INSULIN DETEMIR (LEVEMIR) 100 UNIT/ML SYR SQ SCH ×2 (06:24→20:58)
[2020-10-29] MEDS: ALBUTEROL HFA INHALER INHALATION SCH ×4 (08:22→21:51)
[2020-10-29] MEDS: METOPROLOL TARTRATE 50 MG TAB PO SCH ×2 (09:17→20:56)
[2020-10-29] MEDS: CHOLECALCIFEROL 25 MCG (1000 IU) TABLET PO SCH (09:17)
[2020-10-29] MEDS: DILTIAZEM ORAL 60 MG TAB PO SCH ×3 (09:17→22:41)
[2020-10-29] MEDS: ENOXAPARIN 30 MG/0.3 ML SYRINGE SQ SCH (09:17)
[2020-10-29] MEDS: CHLORHEXIDINE GLUCONATE 15 ML CUP MUCOUS MEM SCH ×2 (09:17→20:56)
[2020-10-29] MEDS: ASCORBIC ACID 500 MG TAB PO SCH ×2 (09:17→20:56)
[2020-10-29] MEDS: PANTOPRAZOLE 40 MG/10 ML VIAL IVP SCH (09:17)
[2020-10-29] MEDS: ESCITALOPRAM 10 MG TAB PO SCH (09:17)
[2020-10-29] MEDS: HYDROPHILIC CREAM 180 GM TUBE TOPICAL SCH (09:18)
[2020-10-29] MEDS: NYSTATIN 100,000 UNIT/GM POWD 15 GM TOPICAL SCH ×3 (09:18→22:41)
[2020-10-29] MEDS: ALPRAZolam 0.25 MG TAB PO PRN (10:02)
--- NOTE | 2020-10-29 10:22 | P.PN ---
Subjective Progress Note Date: 10/29/20 35-year-old female patient of Dr. Arroyo with past medical history of type 2 diabetes comes in with acute shortness of breath associated with high light sugars. Patient on admission was found to have a fever of 101.5 pulse rate 125 respiratory rate 20. Blood pressure 132/106. On chest x-ray obtained in the ER suggestive of bilateral infiltrates concerning for call with pneumonia. COVID PCR was positive. On admissions patient had an ABG with a pH of 7.14 pCO2 of 20, pO2 of 59, bicarb of 7. Patient's blood sugar on admission was 424 on assessment today patient's blood work patient had a sodium 135 potassium 5.4 chloride 123 bicarb less than 5 and creatinine 0.73. D-dimer was elevated on admission patient 9 28 patient given 1 L of IV fluids followed by normal saline running at 200 mL/h. Patient was positive for acetone on admission. She will anion gap closed and was switched to D5NS. Insulin drip was continued during the night and was switched to patient's home medication this morning. One dose of remdesiver was ordered. Apparently around noon, A- team was called on the patient secondary to hypoxia patient's oxygen saturation dropped to the 70s and 80s on 100% nonrebreather. Patient was switched to BiPAP on 18/12 and is doing better o FiO2 of 80%. ABG was obtained and ph was 7. 14 pCO2 of 28 bicarb of 7 pO2 of 17. Patient noted to have uncompensated metabolic acidosis with compensated respiratory alkalosis. Stat dose of 1 amp bicarb was given and followed by sodium bicarbonate drip. Insulin drip restarted. Patient's initiated on dexamethasone 6 mg IV twice a da y. Potassium phosphate ordered as phosphorus is low. Patient's repeat blood gases suggest a pH of 7.25, CO2 32 pO2 of 72 bicarb 14. I will not normal saline at 100 mL/h as patient's anion gap has increased. Patient given 1 dose of 2 mg of morphine with improvement in respiratory rate. One dose of Ativan 0.5 mg was given. Xanax 0.25 twice a day along with Ativan 0.5 IV every 6 hours ordered for the patient. Vitals were evaluated patient pulse 129 [id number]. She was moved to the ICU. Precedex drip was initiated. Lopressor was initiated at 25 twice a day. Metoprolol tartrate 5 mg IV every 6 hours. Systolic blood pressure more than 160. Started chest x-ray was obtained and suggest stable bilateral consolidation suggestive of COVID-19 pneumonia. 09/12 patient is seen in the ICU is currently mechanically ventilated and sedated on vent settings of respiratory rate 36, tidal volume 375 FiO2 80% PEEP of 18.. Vital signs reviewed patient had a temp of 100.4 pulse 150 respiratory rate 36 oxygen saturation 95% on 80% on fio2 .'s labs are reviewed which patient had a d-dimer 1.84 that is increased to 14.3. Arterial Blood gas suggest ph 7.35, CO2 40, po2 62, . Her BMP suggest a sodium 135 potassium 3.7 chloride 112 bicarb 21 creatinine 1.57 for calcitonin is 3.5 CRP is increased from 8.78.2 LDH is increased to 2614. Patient remains on Pneumovax, propofol drip. Lovenox increased to 50 subcu twice a day. Patient received 2 L of IV fluids. Continue IV fluids at 100 mL/h. Bicarb drip discontinued patient initiated on Zosyn 3.375 every 8 hours. Continue insulin drip at 4 units per hour. Patient is currently in prone positioning 09/13: Patient evaluated in the ICU remains on Ventilation continues to be sedated, in prone position. Vent settings are respiratory rate 36, tidal vital 375, FiO2 70% PEEP of 18. ABG shows pO2 of 82, PCO2 of 39, pH is 7.19. Latest labs show WBC 11.1, hemoglobin 13.2, d-dimer still pending, but yesterday was up to 14.3. Creatinine up to 3.4, BUN 24 sodium 137, potassium 4.0. Patient's urine output has been low, nephrology on consult. Bicarb drip increased to 100 miles an hour, receiving another liter of normal saline, she did have a ultrasound that showed unremarkable bilateral kidneys. Repeat chest x-ray showed bilateral lung infiltrates that are stable. Anion gap has closed, will start Lantus 10 units at at bedtime Novolog every 6 hours. 09/14: Patient is seen in the ICU, still currently mechanically ventilated and sedated. She continues in the prone position. Her oxygen quickly drops if she is not in prone. Patient's kidney function has worsened. Laboratory values show creatinine of 4.87, BUN 33, LDH 2191, C-reactive protein 2.7. ABG shows pH 7.32, pO2 of 60, pCO2 43. Patient is making almost no urine overnight. Nephrology is following patient continues on cefepime for urinary tract infection, culture is still pending. Vascular has been consulted for placement of temporary hemodialysis catheter for plans for dialysis. 09/15: Patient evaluated in the ICU, continues to be mechanically ventilated and sedated on assist control ventilation rate of 36, tidal volume 375, FiO2 100% and PEEP of 18. ABG today shows pO2 58, pCO2 of 45, and pH 7.35. She continues on tube feedings. Yesterday patient underwent ultrasound-guided right internal jugular non-tunneled hemodialysis catheter placement. Patient underwent hemodialysis treatment last night and plans have another hemodialysis treatment today. She continues to make almost no urine. She continues on cefepime for antibiotic coverage, and continues on Decadron and Lovenox. 09/16: Patient seen on follow-up remains in the ICU mechanically ventilated and sedated. She continues on assist control rate of 36, tidal volume 375, FiO2 100 % and PEEP of 20. PEEP had to be increased due to patient had to be in supine position for dialysis, will go back to prone position once dialysis is complete. ABG shows pH 7.32, pCO2 49, PaO2 61. Laboratory values showed WBC 11.2, hemoglobin 11, sodium 134, creatinine 4.44, BUN 38. Urine culture shows no growth, blood cultures show no growth to date. Repeat chest x-ray shows bilateral pleural effusions, correlate for ARDS, pulmonary edema, diffuse pneumonia, findings are stable from last exam. Patient does not require any pressors, blood pressure 133/57, heart rate 78. 5/16: Patient was evaluated in the ICU today for follow-up. She continues to be intubated and on mechanical ventilation. Current vent settings are tidal volume 375, FiO2 100% and PEEP of 20. ABG shows pH 7.37, pCO2 40, pO2 102. She continues with intermittent prone positioning. Patient continues to have almost no urine output, maintained on dialysis. Patient received dialysis yesterday without complication. Laboratory values revealed WBC 10.3, hemoglobin 10.4, sodium 132, potassium 3.1, BUN 33, creatinine 4.29, LDH 1913, C-reactive protein 1.3. Urine and sputum cultures are negative, blood cultures show no growth to date. Consult placed to dietary to start TPN[ ] 09/18: She remains in the intensive care unit intubated and on mechanical ventilation with tidal volume 375, FiO2 60 and PEEP of 20. Patient is being prone to daily at approximately 16 hours per day. Pulmonary medicine has added in Dr. Zhang to do PEG tube and trach today. Patient is not on vasopressors. Repeat blood work reveals WBC 12.6, hemoglobin 9.8, platelet count 212. Sodium 133, potassium 3.2, chloride 102, CO2 21, BUN 35 and creatinine 4.12. Blood sugar 126. Patient underwent hemodialysis yesterday with removal of 2 L and is scheduled again today with goal of 2-3 L and is scheduled again tomorrow. 09/19: She is scheduled for hemodialysis today and is off fentanyl temporarily. Patient is status post trach and PEG tube yesterday. And she remains on mechanical ventilation. Pulse ox 93-95%. She has been afebrile, heart rate 64, respiratory rate 36, blood pressure 115/50. Fentanyl is off to improve blood pressure for hemodialysis which is scheduled for today. Contacted vascular surgery about permanent hemodialysis catheter. Repeat blood work reveals WBC 14.3, hemoglobin 9.6, platelet count 200. D-dimer 6.48. LDH 1686. C-reactive protein 1.1. BUN 34 creatinine 3.81. Sodium 130, potassium 3.5, chloride 101, CO2 18. Blood sugars running between 101 198. Plan is to wean off Pneumovax today. Patient remains on insulin drip. Repeat chest x-ray reveals bilateral multifocal confluent opacities consistent with COVID-19. Some improved aeration periphery of the left lung and worsening opacities throughout the right lung. 09/20: She remains in the intensive care unit on mechanical ventilation. She has been afebrile, heart rate 65, respiratory rate 37, blood pressure 121/70, pulse ox 91-99%. Repeat blood work reveals WBC 14.5, hemoglobin 9.1, platelet count 216. D-dimer 6.13. Sodium 133, potassium 3.1, chloride 102, CO2 18, BUN 35 and creatinine 4.27. Blood sugars running between 128 and 143. LDH 1717. C- reactive protein 1.7. Patient remains on insulin drip which will be transiti oned to NovoLog scale every 6 hours. Patient is scheduled for permanent hemodialysis catheter placement today with vascular surgery. Repeat chest x-ray reveals stable diffuse bilateral interstitial and airspace disease. Possible small right effusion. His work is following for transfer to [facility]. Do not anticipate discharge until next week. 09/21: Patient is undergoing hemodialysis. She remains on mechanical ventilation with tidal volume 375, FiO2 down to 45 and PEEP was decreased to 15. Patient is continued on propofol, fentanyl drips. She is on tube feedings at goal. Patient was taken off insulin drip yesterday and on scale only but blood sugars are running in the 200s, Levemir scheduled at bedtime will be added. Other blood work reveals WBC 13.3, hemoglobin 8.7, platelet count 192. Sodium 137, potassium 3.6, chloride 107, CO2 18, BUN 34 and creatinine 4.21. Repeat chest x-ray is stable. 09/22: She remains in the intensive care on mechanical ventilation with tidal volume 375, FiO2 of 50 and PEEP of 10. Pulse ox is running 96%. She is afebrile, heart rate in the 50s, respiratory rate 36, blood pressure 100/64. Repeat blood work reveals WBC 16.5, hemoglobin 8.9, platelet count 213. Sodium 134, potassium 3.7, chloride 103, CO2 21, BUN 34 and creatinine 3.89. Blood sugars running in the 200s to 324. Levemir increased to 16 units at bedtime and continue NovoLog scale every 6 hours. Patient is on tube feedings at goal. She has a Haley catheter in with a scant amount of dark/brown urine. Fecal management system is in place. Repeat chest x-ray reveals diffuse bilateral airspace infiltrates persist unchanged. Patient is scheduled for hemodialysis tomorrow morning on Friday. 09/23: Patient remains on mechanical ventilation with tidal volume 3.75, FiO2 50 and PEEP of 10. teletypesetter monitor sinus rhythm. She has no urine output. Fecal management system is in place. She is undergoing dialysis at this time with plan for removal of 2-1/2 L. She has been afebrile, heart rate in the 50s, respiratory rate 36, blood pressure 108/76 and pulse ox 89%. WBC 13.6, hemoglobin 9.1, platelet count 194. Sodium 136, potassium 3.0 and was replaced, chloride 106, CO2 21, BUN 49 creatinine 5.31. Blood sugars are running between 182 and this morning 194. Patient was still in the 200s and 300s. Levemir last evening was increased to 16 units. Patient remains on propofol and fentanyl drips. Lovenox was increased to 60 mg twice daily. 09/24: PEEP was increased today to 20, tidal volume is at 375 and FiO2 of 50%. Patient has been afebrile. She has been started on levo fed. Repeat chest x- ray reveals bilateral multifocal confluent opacities consistent with Covid 19 or ARDS redemonstrated. Nephrology will plan dialysis for tomorrow for 3 L. Patient remains on propofol fentanyl and Nimbex. WBC 12.5, hemoglobin 9.8, platelet count 161. D-dimer 13.3. Sodium 132, potassium 3.4, chloride 102, CO2 20, BUN 48 and creatinine 4.67. Blood sugars extremely elevated to 96-409. LDH 2217. 09/25: Patient remains in the intensive care unit on mechanical ventilation with tidal volume 375, FiO2 50 and PEEP of 20. Patient is afebrile, heart rate 61, respiratory rate 36, blood pressure 102/56, pulse ox 97%. Repeat blood work reveals WBC 9.3, hemoglobin 8.5 and platelet count 171. Sodium 130, potassium 3.7, chloride 100, CO2 20, BUN 61 creatinine 5.65. Blood sugars have been elevated up to 455. Levemir increased to 20 units twice daily, NovoLog 5 units every 6 hours and continue NovoLog scale. Patient is scheduled for hemodialysis today. Repeat chest x-ray reveals bilateral multifocal and confluent opacities. Decadron and Lovenox dosing change by pulmonary. Patient is off norepinephrine. 09/26: Patient remains in the intensive care unit on mechanical ventilation with tidal volume 375, FiO2 50 and PEEP of 15. She has been afebrile, heart rate 91, blood pressure 114/68, pulse ox 99%. teletypesetter monitor sinus rhythm. 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 Sodium 134, potassium 3.6, chloride 102, CO2 22, BUN 41 creatinine 4.21. Patient has improved blood sugars this morning running 150s and 160s. Diabetic medications were adjusted yesterday. Patient is awake and alert and interacting. Yesterday, patient had PICC line inserted by interventional radiology. Repeat chest x-ray reveals diffuse airspace infiltrates in both lung ann appear to progress slightly in the interval. 09/27: Patient remains in intensive care unit on mechanical ventilation with improvement of settings with tidal volume 375, FiO2 decreased to 40 and PEEP decreased to 10. Patient is on hemodialysis every other day and plan to remove 3 L today. Patient is more awake and alert. She is slow to respond but is able to follow simple commands. Blood sugars are running between 84 and 123. Repeat blood work reveals WBC 7.1, hemoglobin 8.1, platelets 152. Sodium 135, potassium 3.6, chloride 103, CO2 21, BUN 53 and creatinine 5.88. Repeat chest x-ray revealed cardiomegaly and pulmonary edema. Patient is on tube feedings:. Patient is not require vasopressors and is off sedation. Fecal management system remains in place for brown liquid stool. C. difficile was negative. 09/28: Patient remains on mechanical ventilation with tidal volume 375, FiO2 increased to 80 and PEEP increased to 18. Patient had a rough night was very anxious, no pain. Xanax 0.25 mg 3 times daily was added. There is concern for pulmonary embolism for which patient was started on heparin drip, she is unable to undergo CAT scan. Venous Doppler bilateral lower extremities was nondiagnostic due to extensive edema in obese patient but minimal imaging of the popliteal veins does show flow. Repeat echocardiogram has been ordered. Cefepime has also been ordered at 1 g IV piggyback every 24 hours as well as vancomycin, pharmacy dosing. Patient is back on fentanyl drip, propofol drip and norepinephrine. Blood sugars are elevated and insulin Levemir will be increased to 25 mg twice daily. Ferrlecit infusion has been ordered by nephrology for 4 days. Patient is undergoing hemodialysis today.temperature max 100.2, heart rate 134, respiratory rate 34, blood pressure 120/65, pulse ox 94%. teletypesetter monitor is sinus tachycardia. Repeat blood work reveals WBC 16.9, hemoglobin 9.7, platelet count 216. D-dimer 8.81. Sodium 134, potassium 3.8, chloride 99, CO2 25, BUN 43 and creatinine 5.36. Blood sugars in the 200s. AST 40. 09/29 Patient had declined more last 48 hours require more sedation, patient is doing hemodialysis, respiratory failure is quite bit worse this time. Patient was inquired the pain is well back on fentanyl drip. Her vent set up with PEEP is limited but higher. No new finding on culture and her chest x-ray continues shows diffuse infiltrate persistent although there is a moderate interval improvement. 09/30 patient's was seen and evaluated. PEEP was reduced to 11 as patient is maintaining good saturation at the current vent settings. 10/01 patient was seen at bedside. She is currently on assist control rate of 28 white tidal volume 350 FiO2 50% and PEEP of 10 which has been reduced by pulmonary as patient name cleaning her oxygen saturation. Arm blood gas was obtained with a pH of 7.35 pCO2 37 pO2 of 63. She remains hemodynamically stable with no need for pressors. Labs were reviewed patient's BUN is 29 creatinine 3.93 glucose 122 albumin 2.2 sodium 131 chloride 19 hemoglobin is downtrending with a Hb of 7.3 no leukocytosis 7.1. Patient's urine output is mi nimal at this time. Her rate has increased to 129 and is currently on positive fluid balance even with dialysis. Last dialysis was done yesterday. Continue enteral feeding currently at goal. Antibiotic has been discontinued and continues to remain on DEXA methicillin 4 mg IV daily. 10/02 patient continues to be on trach support with mechanical ventilation. Patient was evaluated by testing and regulating technician and was switched to VC control as patient was noted to be double stacking on and off throughout the night. Respiratory rate continue to 28 tidal volume increased to 400 with a PEEP for Dr. Downey. Dariana woodward is maintaining oxygen saturation 91% on the current setting. According to the nurse bedside patient saturation drops significantly or she is moved or her sedation is dropped. Patient is currently on propofol drip, fentanyl drip. She did underwent dialysis today and was able to maintain her low pressure without the need of pressors. Labs reviewed today suggest a WBC of 6.7 hemoglobin of 7. 0 and d-dimer 3.9 bicarb 17 BUN 38 creatinine 4.8. LDH is 964. Sodium 1:30 likely secondary to volume overload. Urine sodium and urine osmolality ordered. Patient's glucose this morning is 146. Continue to remain on enteral feeding. Urine output is reduced. Fall catheter will be placed today. Continue to remain on dialysis. 10/03: Patient remains on mechanical ventilation and is back on propofol and fentanyl drips. Patient is currently on VC control with tidal volume 400, FiO2 55 and PEEP of 12. Patient still is not making any urine and is dialysis dependent with next treatment planned for tomorrow with removal of 3-3-1/2 L. PEG tube feedings are at goal. Fecal management system remains in place. At the time of evaluation, patient is off levophed. Repeat chest x-ray reveals st able diffuse bilateral airspace disease correlate for ARDS, pulmonary edema or diffuse pneumonia. Temperature max last evening was 101. Temperature currently 99, heart rate 106, respiratory rate 32, blood pressure 101/50, pulse ox 86%. Repeat blood work reveals WBC 6, hemoglobin 7.4, platelet count 160. D-dimer 4.05. Sodium 133, potassium 3.5, chloride 100, CO2 23, BUN 31 creatinine 3.8. Blood sugars are running between 100 and 170. Ferritin 1514. Liver function test normal. LDH 1016, C-reactive protein 13.6. Prognosis remains guarded. 10/04: Patient remains intubated on mechanical ventilation with tidal volume 400, FiO2 65, PEEP of 14. Patient continues to run fevers and repeat blood culture and urine and urine culture ordered for today. Haley catheter has been removed this patient has no significant urine output at about 20 mL per shift. BladderScan is monitored for greater than 300 and the patient is straight cathed. Hemoglobin is 6.8 and she has been ordered 41 unit of packed RBCs today. She is currently on propofol and fentanyl drips. She is scheduled for hemodialysis today. WBC 4.5, hemoglobin 6.8, platelet count 151. D-dimer 3.28. Sodium 132, potassium 4.1, chloride 100, CO2 22, BUN 37 creatinine 4.74. Blood sugars running between 97 and 110. Ferritin 1801. LDH 859. C-reactive protein 14.4. Chest x-ray reveals correlate for pneumonia, edema, ARDS. Prognosis remains guarded. 10/05: Patient remains in intensive care unit currently on mechanical ventilation with tidal volume 400, FiO2 was increased to 100 and PEEP is at 14. She continues to run fevers which have worsened with temperature max 103.1. She has been tachycardic in the 130s, blood pressure is marginal but not on vasopressors. Pulse ox currently 92%. Repeat blood work reveals WBC 5.5, hemoglobin 7.6, platelet count 190. D-dimer 2.7, ferritin 1770, LDH 932, C- reactive protein 21.4. Blood sugars are running between 100 1669. Electrolytes are normal. BUN 27 and creatinine 3.79. Pancultures were done yesterday including a straight cath for urine culture, sputum culture and blood culture. Arterial line was removed as well as midline. She is currently on propofol, fentanyl and started on Nimbex today. 10/06: Patient remains in the intensive care unit. Today patient in prone position and remains on mechanical ventilation with tidal volume 350, FiO2 65 and PEEP of 14. Her last documented fever was yesterday at 2 PM. Heart rate is in the 120s, respiratory rate 32, pulse ox 88-92%. CBC is unremarkable. Electrolytes are normal. BUN 30 creatinine 2.93. Blood sugars are running between 135 and 164. Cultures from October 04: Blood culture no growth, sputum culture finalized, urine culture finalized. Catheter tip culture is in process. Repeat chest x-ray shows bilateral interstitial infiltrates. Patient is on tube feedings of Nepro at goal of 30 ML's per hour. Patient underwent dialysis yesterday and is scheduled for repeat dialysis today. 10/07: Patient maintains in the intensive care unit intubated and on mechanical ventilation. She is receiving hemodialysis this morning has been every day. Plan is to remove 2-1/2 L today. Vent settings have changed today with tidal volume 350, FiO2 was increased to 100% and PEEP remains at 14. She has been continued on Nimbex, fentanyl, norepinephrine and propofol. Plan is to prone position patient following dialysis. Repeat chest x-ray reveals worsening interstitial infiltrates. BUN is 26 and creatinine 2.59. LDH 955, C-reactive protein 22.1. Prognosis remains poor. 10/08: Patient remains in intensive care unit intubated and on mechanical ventilation with tidal volume 350, FiO2 60, PEEP of 14. She is pronating today. She is scheduled for hemodialysis on a daily basis. She has been afebrile, heart rate 112, respiratory rate 36, blood pressure 161/88, pulse ox 93%. Rep eat blood work reveals WBC 9.9, hemoglobin 9.1, platelet count 320. Sodium 133, potassium 5.3, chloride 100, CO2 20, BUN 29 creatinine 2.44. Blood sugar running between 102 and 139. LDH 1026, C-reactive protein 19.7. 10/09: Patient is undergoing dialysis this morning. She continues to be intubated and on mechanical ventilation with tidal volume 350, 270 and PEEP of 14. Patient is also on propofol, Nimbex, norepinephrine and fentanyl drips. Repeat chest x-ray reveals persistent bilateral multifocal and confluent opacities consistent with Covid 19. She is afebrile, heart rate 116, respiratory rate 36, blood pressure 120/65, pulse ox 91%. Repeat blood work reveals WBC 5.4, hemoglobin 9.2, platelet count 216. D-dimer 2.67, ferritin 2568, LDH 794, C- reactive protein 13.9. Blood sugars have been running 90-104. Creatinine 1.64. She is on daily dialysis treatment. 10/10: She remains in the intensive care unit. She is now out of isolation as a repeat Covid test came back negative. She remains on mechanical ventilation with tidal volume 350, FiO2 70 and PEEP of 14. Patient is also on Nimbex, propofol, norepinephrine, fentanyl drips. She is on PEG tube feedings at goal and tolerating well. Repeat blood work reveals WBC 7.8, hemoglobin 7.5, platelet count 267. Sodium 139, potassium 3.9, chloride 109, CO2 20, BUN 20 creatinine 1.29. Blood sugars are running between 76 and 102. Scheduled NovoLog decreased to 3 units. Repeat chest x-ray reveals moderate cardiomegaly and continued pulmonary edema. Slight interval improvement. Patient is jing nued on daily hemodialysis. 10/11: Patient remains in intensive care unit on mechanical ventilation with tidal volume 325, FiO2 70, PEEP 14. She is currently being prone. She underwent hemodialysis this morning with removal of 4 L of fluid with plan to continue daily treatment. She is currently on Nimbex, fentanyl and propofol. No vasopressor at this time. Fecal management system remains in place. She is on tube feedings currently at hold due to prone positioning. Patient has been afebrile, heart rate 116, respiratory rate 36, blood pressure 100/58, pulse ox 93-96%. Repeat blood work reveals WBC 9.3, hemoglobin 8.1, platelet count 276. Sodium 136, potassium 4.3, chloride 103, CO2 20, BUN 20 creatinine 1.14. Blood sugars running between 133 and 202. 10/12: Patient remains in the intensive care unit. She is undergoing hemodialysis this morning. She's been afebrile, heart rate in the 120s, respiratory rate 32, blood pressure 102/65. She is not on vasopressors. She is continued on Nimbex, fentanyl and propofol. Vent settings are currently tidal volume 325, FiO2 70, PEEP 14. Total platelet count 273. Sodium 133, potassium 4.7, chloride 100, CO2 19, BUN 21 creatinine 0.91. Blood sugars running between 121 and 143. 10/13: Patient remain in the ICU she is on hemodialysis daily, she is still on the vent with a PEEP of 14 and FiO2 of 70. Her oxygenation is marginal pulse rate still high. Patient had scratched cornea was seen in ophthalmology decided to keep doing eyedrops along with eye patch at this point. Prognosis still very bad this point. 10/14: She remains on mechanical ventilation with tidal volume 325, FiO2 70% and PEEP of 14. She did require label fed last evening for about 6 hours. She did not tolerate pronating yesterday. She is undergoing dialysis this morning with plan for removal of 4 L. Blood sugars have been low and IV fluids changed to D1 0 until blood sugars have recovered. Levemir and scheduled NovoLog discontinued. Patient is on tube feedings at goal there's been no change in this. 10/15 patient remains on mechanical ventilation in the intensive care unit. FiO2 still at 70%, PEEP of 18. Blood sugars have improved since medications were adjusted. White blood cells 33.9, hemoglobin 8.5, sodium 135, BUN 19, creatinine 0.96. Patient to receive dialysis again today. Patient did run a low-grade fever throughout the night and pro calcitonin level is ordered. Chest x-ray showed continued diffuse bilateral airspace disease. Patient remains on tube feedings at goal. 10/16: Patient remains on mechanical ventilation with tidal volume 300, FiO2 70, PEEP of 15. Fecal management system is out. She is currently on low dose of norepinephrine. She is also on fentanyl drip, propofol drip, rocuronium drip. Heart rate is running in the 130s, sinus rhythm, blood pressure 121/63, pulse ox 95%. Patient is been afebrile. Repeat blood work reveals WBC 18.9, hemoglobin 7.5, platelet count 291. Sodium 135, potassium 4.2, chloride 101, CO2 19, BUN 25 and creatinine 1.36. Blood sugars are running between 143 and 199. Patient is on scale insulin only. Repeat chest x-ray reveals persistent bilateral multifocal and completed opacities consistent with Covid 19. 10/17: Patient remains on mechanical ventilation with tidal volume 300, FiO2 50, PEEP of 14. She is currently receiving hemodialysis. The patient is having yellow-colored drainage from the trach site. This is going to be culture today. Repeat blood work reveals WBC of 24, hemoglobin 7.3 and platelet count 310. Sodium 136, potassium 4.1, chloride 101, CO2 19, BUN 24 creatinine 1.43. Blood sugar 139. Capillary blood glucose running 147 and 189. Repeat chest x-ray is unchanged. Patient had increased respiratory rate 40s and 50s with oxygen saturation of 87 and now was increased and Seroquel added this morning. Prognosis remains guarded. 10/18: Patient remains on mechanical ventilation with tidal volume 300, FiO2 60, PEEP has been decreased to 12. Patient will need a PEEP of 8 in order to transfer to long-term care. She is currently on fentanyl drip and Precedex drip. Patient is tracking when her name is stated. She seems to be slightly im proved today. Patient has been afebrile, heart rate 106, respiratory rate 32, blood pressure 110/61, pulse ox 98%. Repeat blood work reveals WBC 30.3, hemoglobin 7.2, platelet count 350. Sodium 139, potassium 4.2, chloride 103, CO2 20, BUN 23 creatinine 1.79. Blood sugars are increasing running up 299. Patient will be placed on Levemir. Secretions from tracheotomy sent for culture and in process. She is currently undergoing hemodialysis. 10/23: Patient remains in the intensive care unit on mechanical ventilation with tidal volume 300, FiO2 65 and PEEP of 10. teletypesetter monitor has been in a sinus rhythm. Patient does open her eyes and appears to be tracking. Blood sugars have been elevated. Levemir will be increased to 40 units daily and scheduled NovoLog increased to 12 units and continue NovoLog every 6 hours per scale. Patient is receiving hemodialysis today. She is not currently on vasopressors. Patient is on Precedex drip only. Antibiotics in the form of cefepime were started on October 18. Patient has been afebrile, heart rate 126, respiratory rate 36, blood pressure 163/105. Pulse ox 91%. Repeat blood work reveals WBC 16.0, hemoglobin 7.2, platelet count 208. Electrolytes are within normal limits. BUN 62 and creatinine 2.43. Blood sugars running between 259-321. Most recent blood culture from October 22 is no growth at 24 hours. Repeat chest x-ray reveals cardiomegaly and persistent bilateral pulmonary edema. 10/24: Patient is awake, eyes are open and tracking, she is able to follow simple commands. Severe generalized weakness noted. Precedex gtt has been discontinued. Patient is receiving hemodialysis. Her blood sugars have remained elevated for which Levemir increased to 25 units twice daily along with 15 units of NovoLog every 6 hours along with scale. Tidal volume 330, FiO2 60, PEEP of 8. manager spring and case management social worker following closely. Anticipate possible discharge by the end of next week to long-term care facility. 10/25: Patient remains in the intensive care unit on mechanical ventilation. Tidal volume 350, FiO2 60, PEEP 8. She is receiving hemodialysis this morning. Her heart rate remains elevated in the 130s. Pulmonary as started her on Cardizem at 60 mg 3 times daily which has not had any improved effect. We'll start the patient on Lopressor 25 mg twice daily. Patient has been afebrile, heart rate respiratory rate 32, blood pressure 151/91, pulse ox 98%. Patient is been transfuse 1 unit of packed RBCs today. Patient's mental status is improving and patient is able to follow simple commands. WBC 12.2, hemoglobin 6.3, platelet count 196. Sodium 135 otherwise looked lites are normal, BUN 48 creatinine 1.99. Blood sugars are running between 120 and 172. Levemir has been increased to 30 mg twice daily continue 15 units of NovoLog every 6 hours with scale. 10/26: Patient remains in intensive care unit, on mechanical ventilation with tidal volume 375, FiO2 50, PEEP of 8. Patient's heart rate remains elevated 120s and Lopressor increased to 50 mg twice daily. Patient seems to be quite anxious and depressed. We will decrease Seroquel to 50 mg twice daily and start patient on Lexapro. Patient received her first dose of Xanax this morning but this did not seem to help heart rate either. She has been afebrile, heart rate 128, blood pressure 149/79, pulse ox 93%. Repeat hemoglobin 7.3. Sodium 135, potassium 3.9, chloride 90, CO2 30, BUN 45 and creatinine 1.94. Blood sugar are improved running between 117-194. We will make further adjustments to insulin and to increase long-acting to 35 units twice daily and decrease NovoLog scheduled to 7 units and continue NovoLog scale. There are problems with patient's trach and consequently placed with [facility]ound [facility]. General surgery to reevaluate trach. 10/27: Patient is complaining of nausea today. Concerned that this is related to Lexapro. We will further decrease Seroquel to 50 mg at bedtime. Patient is being bladder scanned and last bladder scan wasn't 125 mL. She does not have Haley catheter. No fecal management system. She is having a bowel movement about 3 per day. Plan is for CPAP trial today. She is currently on mechanical ventilation with tidal volume 375, FiO2 50 and PEEP of 8. She has been afebrile, heart rate 105 which is much improved from the last few days. Blood pressure 145/88, pulse ox 94%. There is a new consult in place for Dr. Clemente regarding exchanging the trach and possible debridement at site. WBC 11.4, hemoglobin 8.2, blood count 218. Sodium 136, potassium 4.1, chloride 97, CO2 31, BUN 47 creatinine 1.97. Blood sugars running between 129 and 204. We have changed long acting insulin to 35 units twice daily and continue NovoLog 7 units every 6 hours and scale every 6 hours. Nephrology may be decreasing frequency of dialysis treatments. Anticipate probable discharge to long-term care next week. 10/28: Patient was complaining of nausea today which has resolved. CPAP trial will continue today. She is currently on mechanical ventilation with a tidal volume 375, FiO2 of 50, PEEP of 8. She is afebrile, heart rate 108 which continues to show improvement. Blood pressure 133/87, pulse ox 99%. Patient is able to follow commands. And answers appropriately with nodding her head. WBC 10.5, hemoglobin 8.0, potassium 4.6, BUN 46, creatinine 1.96. Patient is currently receiving hemodialysis. 10/29: Patient was found sitting up in bed. Able to answer some questions appropriately. Utilizing kim. Able to follow commands. Bryan over elevated blood sugars. Levemir 35 units twice a day will continue at this with a 7 unit coverage. Patient remains afebrile. Heart rate 102, respirations 29, blood pressure 124/74, pulse ox 97% on mechanical ventilation. Mechanical ventilation settings with a tidal volume 375, FiO2 of 50 and a PEEP of 8. Family has been into see patient. Hemodialysis will be held today. trach and possible debridement at the site.REVIEW OF SYSTEMS Unable to obtain due to mechanical ventilation. PHYSICAL EXAMINATION Gen: This is is a 35-year-old black female, patient is on mechanical vent ilation, appears to be comfortable. HEENT: Head is atraumatic, normocephalic. Pupils equal, round. Sclerae is anicteric. Eyes are open and tracking. Tracheostomy midline with surrounding erythema . NECK: Supple. No JVD. No lymphadenopathy. No thyromegaly. LUNGS: Lung sounds are diminished at the bases but otherwise clear to auscultation. No intercostal retractions. HEART: Regular rate and rhythm. No murmur. teletypesetter monitor sinus tachycardia. ABDOMEN: Soft. Bowel sounds are present. No masses. No tenderness. EXTREMITIES: Trace bilateral pedal edema. No calf tenderness. NEUROLOGICAL: Patient is awake and able to follow simple commands, significant weakness. ASSESSMENT AND PLAN 1. Acute hypoxic respiratory failure secondary to Covid 19 pneumonia and pos sible bacterial pneumonia. Patient was intubated on September 11. She is status post 1 dose of Remdesivir and 1 dose of Tocilizumab. Continue Ventolin inhaler 4 times daily, Lovenox 30 mg subcu daily, supplements. Status post PEG tube and trach. Continue cefepime. 2. Acute diabetic ketoacidosis secondary to Covid 19 pneumonia, uncontrolled with hyperglycemia. Levemir increased to 35 units twice daily and scheduled NovoLog increased to 7 units every 6 hours and continue NovoLog scale every 6 h ours. 3. Metabolic encephalopathy secondary to Covid 19 and DKA. 4. Sepsis and septic shock secondary to Covid 19 pneumonia with multiorgan failure. Continue as in #1. Trach drainage cultured. General surgery to reevaluate trach and wound care consult has been added. 5. Acute metabolic acidosis secondary to acute DKA, Covid 19 and acute kidney injury. Renvela 1600 mg 3 times daily. 6. Diabetes mellitus type 2 uncontrolled with A1c 13.6. Continue as above. 7. Hypophosphatemia status post replacement. 8. Hyperkalemia secondary to DKA, resolved. 9. Sinus tachycardia secondary to sepsis, volume deficiency. Patient is on Cardizem 60 mg 3 times daily, and Lopressor increased to 50 mg twice daily. 10. Acute kidney injury secondary to ATN secondary to Covid 19 and DKA. C ontinue daily hemodialysis. Permanent dialysis catheter placed. 11. Possible acute gram-negative pneumonia versus MRSA pneumonia. Completed course of antibiotics. 12. Hypertension. 13. Morbid obesity with BMI of 53. 14. Situational depression and anxiety. Seroquel decreased to 50 mgat bedtime, continue Lexapro 10 mg daily and Xanax 0.25 mg twice daily as needed. 15. DVT prophylaxis. Lovenox. 16. GI prophylaxis. Protonix 40 mg IV push daily. 17. Stage II pressure ulcer to trach site. Currently utilizing absorptive silver dressing. CODE STATUS: Full code Prognosis guarded. DISCHARGE PLAN Dividend Deposit Voucher Clerk Acute Care next week Impression and plan of care have been directed as dictated by the signing physician. Rika Edouard nurse practitioner acting as scribe for signing physician. Objective - Vital Signs Vital signs: Vital Signs Temp 98.2 F 10/29/20 08:00 Pulse 102 H 10/29/20 10:00 Resp 29 H 10/29/20 10:00 BP 124/74 10/29/20 10:00 Pulse Ox 97 10/29/20 10:00 Intake & Output 10/28/20 10/29/20 10/29/20 18:59 06:59 18:59 Intake Total 872 818 198 Output Total 4000 0 0 Balance -3128 818 198 Weight 94.8 kg 91.2 kg Intake: IV 170 130 30 0.9 Normal Saline @ KVO 120 130 30 Cefepime 1 gm In Sodium 50 Chloride 0.9% 50 ml @ 12. 5 mls/hr IVPB Q24H [facility] Rx #:[id number] Tube Feeding 612 598 138 Other 90 90 30 Output: Urine 0 0 0 Hemodialysis 4000 ABP, PAP, CO, CI - Last Documented Arterial Blood Pressure 136/76 - Labs CBC & Chem 7: 10/29/20 03:16 10/29/20 03:16 Labs: Abnormal Lab Results - Last 24 Hours (Table) 10/28/20 10/28/20 10/28/20 Range/Units 12:25 17:58 21:00 RBC (3.80-5.40) m/uL Hgb (11.4-16.0) gm/dL Hct (34.0-46.0) % RDW (11.5-15.5) % Sodium (137-145) mmol/L BUN (7-17) mg/dL Creatinine (0.52-1.04) mg/dL Glucose (74-99) mg/dL POC Glucose (mg/dL) 230 H 141 H 159 H (75-99) mg/dL 10/29/20 10/29/20 10/29/20 Range/Units 00:06 03:16 03:16 RBC 2.56 L (3.80-5.40) m/uL Hgb 7.3 L (11.4-16.0) gm/dL Hct 22.4 L (34.0-46.0) % RDW 16.7 H (11.5-15.5) % Sodium 134 L (137-145) mmol/L BUN 46 H (7-17) mg/dL Creatinine 2.01 H (0.52-1.04) mg/dL Glucose 158 H (74-99) mg/dL POC Glucose (mg/dL) 180 H (75-99) mg/dL 10/29/20 Range/Units 06:16 RBC (3.80-5.40) m/uL Hgb (11.4-16.0) gm/dL Hct (34.0-46.0) % RDW (11.5-15.5) % Sodium (137-145) mmol/L BUN (7-17) mg/dL Creatinine (0.52-1.04) mg/dL Glucose (74-99) mg/dL POC Glucose (mg/dL) 172 H (75-99) mg/dL Microbiology - Last 24 Hours (Table) 10/22/20 09:36 Blood Culture - Final Blood No Growth after 144 hours Assessment and Plan (1) Non-pressure chronic ulcer of skin of other sites with fat layer exposed Current Visit: Yes Status: Acute Code(s): L98.492 - NON-PRS CHRONIC ULCER OF SKIN OF SITES W FAT LAYER EXPOSED SNOMED Code(s): 10888564 (2) Diabetes with skin ulcer Current Visit: Yes Status: Acute Code(s): E11.622 - TYPE 2 DIABETES MELLITUS WITH OTHER SKIN ULCER; L98.499 - NON-PRESSURE CHRONIC ULCER OF SKIN OF SITES W UNSP SEVERITY SNOMED Code(s): 57891998
--- NOTE | 2020-10-29 10:53 | XR ---
EXAMINATION TYPE: XR chest 1V portable DATE OF EXAM: 10/29/2020 COMPARISON: 10/27/2020 HISTORY: Shortness of breath TECHNIQUE: Single frontal view of the chest is obtained. FINDINGS: There is evidence of cardiomegaly. Tracheostomy tube is in place. Large bore central venous line righ t IJ. Scattered infiltrates are seen throughout both lung ann without significant interval change. The osseous structures are intact. IMPRESSION: 1. No significant interval change appreciated.
[2020-10-29 11:39] LABS: Glucose,Whole Blood 159 mg/dL (75-99)
--- NOTE | 2020-10-29 13:06 | PN ---
PROGRESS NOTE Patient is seen for followup for acute kidney injury, currently hemodialysis dependent. Overall, patient is improved. This morning, she is awake. She follows commands. Mentation has been fairly normal. No significant urine output. Patient will be dialyzed tomorrow. PHYSICAL EXAMINATION: Blood pressure 117/76, heart rate 112 per minute. She is afebrile. Examination of the heart S1, S2. Examination of the lungs, bilateral breath sounds are heard. Abdomen: Soft, obese. Examination of lower extremities shows much improved edema. OCCUPATIONAL PSYCHOLOGIST exam grossly intact. The patient has a tracheostomy. LAB: Show sodium 134, potassium 4.5, serum creatinine 2.01. Hemoglobin 7.3 g/dL. ASSESSMENT: 1. Acute kidney injury, acute tubular necrosis, currently oliguric, hemodialysis dependent. Will maintain patient on dialysis. We will plan for a treatment tomorrow. 2. Volume overload significantly improved. 3. Acute hypoxic respiratory failure, currently remains on the vent. FiO2 45%. 4. Anemia. No active bleeding noted. Maintained on Aranesp. 5. Pneumonia initially Covid pneumonia followed by bacterial pneumonia and ARDS, currently improving. PLAN: Hemodialysis tomorrow. Goal UF about 4 L as tolerated. MMODL / IJN: [id number] /
--- NOTE | 2020-10-29 13:21 | P.PN ---
Subjective Progress Note Date: 10/29/20 CHIEF COMPLAINT: Ventral dependent respiratory failure HISTORY OF PRESENT ILLNESS: The patient is a 35-year-old female with coronavirus pneumonia, ventilator dependent respiratory failure and tracheostomy and gastrostomy tube placement. She has multiple co-morbidities due to complications from COVID infection. Her sepsis has improved as WBC now normal. She had trial of CPAP. ROS: No new chest pain. Morbidly obese, BMI over 45.0. Mechanical ventilation now on CPAP. PHYSICAL EXAM: VITAL SIGNS: Reviewed CONSTITUTIONAL: Well developed and in no acute distress. EYES: Conjuctivae without sclera icterus. Extraocular movements grossly intact. HEAD, EARS, NOSE, THROAT: Moist buccal mucosa. Head is atraumatic, normocephalic. NECK: Tracheostomy intact with subcutaneous erosion from the tracheostomy, less than 2 cm with seropurulent drainage RESPIRATORY: Non-labored respirations and equal bilateral excursions. CARDIOVASCULAR: Palpable 2+ radial pulses. ABDOMEN: Gastrostomy tube intact MUSCULOSKELETAL: No gross deformity of the lower extremities noted. No clubbing. No cyanosis. SKIN: Good skin turgor. Well perfused. NEUROLOGIC: Cranial nerves II through XII grossly intact. No focal or lateralizing signs. PSYCH: CLINICAL LABS: Reviewed. WBC over 10,000 ASSESSMENT: 1. Coronavirus pneumonia 2. Ventilatory-dependent respiratory failure 3. Status post tracheostomy for prolonged intubation 4. Status post gastrostomy for inadequate protein malnutrition 5. Morbid obesity due to excess calories, BMI 47.5 6. Anemia status post blood transfusion 7. Sepsis 8. Acute renal failure and hemodialysis 9. Poorly controlled diabetes, hyperglycemia 10. Complication from tracheostomy PLAN: 1. Continuind dialysis. 2. Continue IV antibiotics. 3. Pending transfer to [facility] pending medical stability Objective - Vital Signs Vital signs: Vital Signs Temp 98.1 F 10/29/20 12:00 Pulse 99 10/29/20 12:00 Resp 25 H 10/29/20 12:00 BP 140/83 10/29/20 12:00 Pulse Ox 96 10/29/20 12:00 Intake & Output 10/28/20 10/29/20 10/29/20 18:59 06:59 18:59 Intake Total 872 818 340 Output Total 4000 0 0 Balance -3128 818 340 Weight 94.8 kg 91.2 kg Intake: IV 170 130 50 0.9 Normal Saline @ KVO 120 130 50 Cefepime 1 gm In Sodium 50 Chloride 0.9% 50 ml @ 12. 5 mls/hr IVPB Q24H [facility] Rx #:[id number] Tube Feeding 612 598 230 Other 90 90 60 Output: Urine 0 0 0 Hemodialysis 4000 ABP, PAP, CO, CI - Last Documented Arterial Blood Pressure 136/76 - Labs CBC & Chem 7: 11/17/20 05:35 11/17/20 05:35 Labs: Abnormal Lab Results - Last 24 Hours (Table) 10/28/20 10/28/20 10/29/20 Range/Units 17:58 21:00 00:06 RBC (3.80-5.40) m/uL Hgb (11.4-16.0) gm/dL Hct (34.0-46.0) % RDW (11.5-15.5) % Sodium (137-145) mmol/L BUN (7-17) mg/dL Creatinine (0.52-1.04) mg/dL Glucose (74-99) mg/dL POC Glucose (mg/dL) 141 H 159 H 180 H (75-99) mg/dL 10/29/20 10/29/20 10/29/20 Range/Units 03:16 03:16 06:16 RBC 2.56 L (3.80-5.40) m/uL Hgb 7.3 L (11.4-16.0) gm/dL Hct 22.4 L (34.0-46.0) % RDW 16.7 H (11.5-15.5) % Sodium 134 L (137-145) mmol/L BUN 46 H (7-17) mg/dL Creatinine 2.01 H (0.52-1.04) mg/dL Glucose 158 H (74-99) mg/dL POC Glucose (mg/dL) 172 H (75-99) mg/dL 10/29/20 Range/Units 11:37 RBC (3.80-5.40) m/uL Hgb (11.4-16.0) gm/dL Hct (34.0-46.0) % RDW (11.5-15.5) % Sodium (137-145) mmol/L BUN (7-17) mg/dL Creatinine (0.52-1.04) mg/dL Glucose (74-99) mg/dL POC Glucose (mg/dL) 159 H (75-99) mg/dL Microbiology - Last 24 Hours (Table) 10/22/20 09:36 Blood Culture - Final Blood No Growth after 144 hours Assessment and Plan (1) Respiratory failure requiring intubation Status: Acute Code(s): J96.90 - RESPIRATORY FAILURE, UNSP, UNSP W HYPOXIA OR HYPERCAPNIA SNOMED Code(s): 787260668 (2) Morbid obesity due to excess calories Status: Acute Code(s): E66.01 - MORBID (SEVERE) OBESITY DUE TO EXCESS CALORIES SNOMED Code(s): 817699636 (3) BMI 45.0-49.9, adult Status: Acute Code(s): Z68.42 - BODY MASS INDEX [BMI] 45.0-49.9, ADULT SNOMED Code(s): 077755471 (4) Sepsis Status: Acute Code(s): A41.9 - SEPSIS, UNSPECIFIED ORGANISM SNOMED Code(s): 52336134 (5) Anemia Status: Acute Code(s): D64.9 - ANEMIA, UNSPECIFIED SNOMED Code(s): 896204571 (6) Pneumonia due to COVID-19 virus Status: Acute Code(s): U07.1 - COVID-19; J12.82 - Pneumonia due to coronavirus disease 2019 SNOMED Code(s): 168007004234430590 (7) Inadequate dietary intake of protein Status: Acute Code(s): E63.9 - NUTRITIONAL DEFICIENCY, UNSPECIFIED SNOMED Code(s): 475929399 (8) Acute renal failure Status: Acute Code(s): N17.9 - ACUTE KIDNEY FAILURE, UNSPECIFIED SNOMED Code(s): 79757816 (9) Hyperglycemia Status: Acute Code(s): R73.9 - HYPERGLYCEMIA, UNSPECIFIED SNOMED Code(s): 36399907
--- NOTE | 2020-10-29 13:36 | P.PN ---
Subjective Progress Note Date: 10/29/20 Principal diagnosis: Acute hypoxic respiratory failure secondary to COVID-19 pneumonia and ARDS secondary to COVID-19 pneumonia 10/22/2020, I'm seeing the patient for a follow-up. This morning, she is on a Precedex drip at 0.6 micrograms per kilogram per hour.she is awake. She communicates well. She is barely able to move her fingers and toes pH is unable to raise them against gravity. She has profound weakness. Also, the patient is still on mechanical ventilator. She assist-control mode rate of 32 with a tidal volume of 300 and FiO2 of 60% with a PEEP of 10. Blood gases from today showed a pH of 7.38 with a pCO2 of 48 and pO2 of 65. The chest x-ray from today shows no significant interval change in the patient that she is back to Diffuse bilateral pulmonary infiltrates unchanged from yesterday's evaluation. There is some cardiomegaly. No significant orotracheal secretions. On examination she has some scattered rhonchi. Her previous sputum culture was positive for Acinetobacter and the patient is currently on IV cefepime. Her white cell count has dropped in the morning white cell count today is at 13.3. Nevertheless, overnight, the patient had spikes of temperature with a T-max of 11.3. Repeat cultures will be done accordingly. The patient is currently off steroids. The patient's is slightly tachycardic and we have started on oral Cardizem for rate control. She is in sinus tachycardia. She is also slightly tachypneic. She is uncertain 400 mg by mouth twice a day. No other significant events overnight. He is tolerating her enteral feeding for nutritional support. Her last bout of dialysis was yesterday. Her volume status is improved considerably.She is post prolonged respiratory failure due to COVID-19 related ARDS/pneumonia.the blood sugars are slightly elevated. he is currently off Decadron and increased the Levemir dose for a tighter blood sugar control.I made an adjustment and increase her Levemir insulin up to 30 units once a day along with a slight scale coverage. Patient was reevaluated today on 10/23/2020, patient remains in ICU remains intubated and mechanically ventilated. Patient is on volume control plus rate of 300,And I increased the volume up to 350. She is on rate of 32FiO2 was increased to 65% PEEP remains at 10 EGD this morning showed a pO2 of 60 pCO2 of 50 pH of 7.32. Patient is off all narcotics and paralytics, she is however on Precedex at 0.4 mcg/kg/m. She is still receiving tube feeding via PEG tube. She is on vital AF at 56 mL/hour. Patient did not receive hemodialysis yesterday, however she is scheduled to have hemodialysis today. Remains tachycardic, but hemodynamically stable not requiring pressors at this point. Patient is on Cardizem to control her sinus tachycardia. Chest x-ray continues to show evidence of bilateral interstitial infiltrates secondary to ARDS and s uspect some component of fluid overload secondary to renal failure. No dialysis was done yesterday. Her peak airway pressure is 30 . WBC count is 16 hemoglobin is 7.2 platelets are 2086 metabolic profile is normal except BUN of 62 creatinine 2.43. Blood sugar is 327 remains on cefepime at 1 g every 24 hours. Patient is also on Lovenox at 30 mg subcu daily. She is also on Seroquel at 100 twice a day. Protonix 40 mg IV push daily. Patient was reevaluated today on 10/24/2020, remains in the ICU, intubated and mechanically ventilated. Patient is on assist control rate of 3 to tidal volume of 350 and I increased that up to 375 patient had a bit of a cough leak. She is on 60% FiO2 and PEEP is at 10 and I cut it down to 8. Last ABG this morning on 60% showed a pO2 of 66 pCO2 of 54 pH of 7.33. Patient remains on hemodialysis, yesterday she had 4 L off. Last night she had an episode of nonsustained ventricular tachycardia without any symptoms. She had a relatively normal labs. Patient remains on tube feeding using vital AF, at goal 56 mL per hour. On the ventilator, patient seems to be a bit tachypneic, her peak airway pressure is 30 5O pressure is 24. Chest x-ray continues to show bilateral interstitial infiltrates. CBC today is relatively normal hemoglobin is 7.6. Basic metabolic profile is normal. BUN is 54 creatinine 2.01 Reevaluated today on 10/25/2020, remains intubated and mechanically ventilated. Patient is now on assist control rate of 32. FiO2 of 55% but I increased it up to 60%. PEEP is at 8 and remains at 8. The volume is 375. No ABG done today, patient is about to receive hemodialysis today. She had 4 L of fluids removed by hemodialysis yesterday. Patient is to receive 1 unit of packed RBCs today for a hemoglobin of 6.3. This will be given during her hemodialysis today. Chest x-ray is showing worsening bilateral interstitial edema and possibly underlying ARDS. Patient remains on enteral feeding using vital AF at 56 mL per hour. Patient remained generally weak, and obviously she has severe critical illness polyneuropathy and polymyopathy. All labs were reviewed today. Again she has WBC of 12.2 hemoglobin 6.3 electrolytes are normal BUN is 48 creatinine is 1.99. Sputum from 10/30 showing gram-negative bacilli, previously she had a Citrobacter, and she remains on cefepime. Patient was reevaluated today on 10/26/2020, patient remains in the ICU, remains intubated and mechanically ventilated. Patient is presently undergoing hemodialysis. She is on assist control rate of 32.tidal volume is 375 FiO2 is 50% and PEEP is 8. ABG showed a pO2 of 60 pCO2 46 pH of 7.43. Chest x-ray continues to show bilateral interstitial infiltrates and ARDS. Possibly interstitial edema. Patient remains on enteral feeding using vital AF at 56 mL per hour. Remains on cefepime. Remains on hemodialysis daily. She is hemodynamically stable not requiring any pressors. Patient has severe critical illness polyneuropathy and myopathy, unable to wean the and her ABG remains marginal. Physical therapy is evaluating the patient. And we are in the process of considering eventually sending the patient to LTAC. Electrolytes are normal BUN is 45 creatinine is 1.94 CBC is relatively normal hemoglobin is 7.3. Reevaluated today on 10/27/2020, patient remains in the ICU, remains intubated and mechanically ventilated, patient is being ventilated via tracheostomy. She is on assist control rate of 32. Tidal volume of 375 FiO2 50% and PEEP is at 8. Chest x-ray continues to show evidence of interstitial edema and ARDS. Patient is scheduled to have hemodialysis again today. Patient is awake, generally weak and profoundly weak, follows simple instructions, desaturates easily with minimal coughing or any activity. Chest x-ray is showing improvement but nowhere near clearing. Patient is on enteral feeding, she is receiving vital AF at 56 mL per hour. Yesterday I consulted surgery to evaluate the tracheostomy site, apparently the surgeon who performed the tracheostomy is not available, and I'm recommending ENT evaluation and I'm wondering if the patient would require tracheoplasty. Patient will be given a trial of pressure support of 14 and CPAP today. She will be dialyzed today. She remains on cefepime. And she remains on multiple meds as listed below. Including cardiac meds and antibiotics/cefepime. W see count today is 11.4 hemoglobin is 8.2 electrolytes are normal BUN is 47 creatinine is 1.97 Reevaluated today on 10/28/2020, patient remains in the ICU, intubated and mechanically ventilated. Patient tolerated yesterday . And a half hours of weaning with pressure support and CPAP. Patient was placed on pressure support of 15 and CPAP of 5. And we'll plan to the same thing possibly today with pressure support and CPAP possibly as a pressure support of 12. Patient is presently receiving dialysis again. Her O2 saturation is in the 100% range on 50% and she is on PEEP of 8 today I cut her down to 45% and I cut down the PEEP down to 6. Overall the patient is demonstrating significant improvement. Her assist control rate now is 3 to tidal volume is volume control +375 FiO2 is down to 45% PEEP is down to 6. Patient is awake, appropriate, significantly improved since the last few days. CBC is relatively normal hemoglobin is 8 electrolytes are normal BUN is 46 creatinine 1.96 Reevaluated today on 10/29/2020, remains in the ICU, no hemodialysis is planned on this patient today. Patient tolerated only 45 minutes of CPAP yesterday with a pressure support of 12. Today I plan to give her another trial with a pressure support of 15, patient is feeling better overall, she has some vague chest discomfort. But does not seem to be in any distress. She is on mechanical ventilation with volume control plus of 375. Rate 32. FiO2 is down to 45% and PEEP is down to 6. Patient remains on enteral feeding. Labs were reviewed WBC count is 9.9 hemoglobin is 7.3 Are normal BUN is 46 creatinine 2.01 Objective - Vital Signs Vital signs: Vital Signs Temp 98.1 F 10/29/20 12:00 Pulse 99 10/29/20 12:00 Resp 25 H 10/29/20 12:00 BP 140/83 10/29/20 12:00 Pulse Ox 96 10/29/20 12:00 Intake & Output 10/28/20 10/29/20 10/29/20 18:59 06:59 18:59 Intake Total 872 818 340 Output Total 4000 0 0 Balance -3128 818 340 Weight 94.8 kg 91.2 kg Intake: IV 170 130 50 0.9 Normal Saline @ KVO 120 130 50 Cefepime 1 gm In Sodium 50 Chloride 0.9% 50 ml @ 12. 5 mls/hr IVPB Q24H [facility] Rx #:[id number] Tube Feeding 612 598 230 Other 90 90 60 Output: Urine 0 0 0 Hemodialysis 4000 ABP, PAP, CO, CI - Last Documented Arterial Blood Pressure 136/76 - Exam GENERAL EXAM: Revealed a 35-year-old female, on mechanical ventilation, pleasant, asymptomatic HEAD: Normocephalic/atraumatic. Tracheostomy is intact. Dressing is clean EENT: PERRLA, EOMI, nonicteric, no neck masses, no JVD, CHEST: No chest wall deformity. Symmetrical expansion. LUNGS: Diminished breath sounds at the bases no rhonchi or wheezes CVS: normal S1 and S2, no S3 gallop, no murmur. ABDOMEN: Obese soft nontender no megaly no rebound no guarding. PEG tube is intact. EXTREMITIES: no clubbing edema or cyanosis. Good pulses bilaterally Psychiatric: Normal mood, affect, normal mental status examination SKIN: No rashes, tracheostomy site is covered with sterile dressing. CENTRAL NERVOUS SYSTEM: Profound weakness noted bilaterally. Alert, oriented, no gross focal deficit other than profound weakness - Labs CBC & Chem 7: 10/29/20 03:16 10/29/20 03:16 Labs: Abnormal Lab Results - Last 24 Hours (Table) 10/28/20 10/28/20 10/29/20 Range/Units 17:58 21:00 00:06 RBC (3.80-5.40) m/uL Hgb (11.4-16.0) gm/dL Hct (34.0-46.0) % RDW (11.5-15.5) % Sodium (137-145) mmol/L BUN (7-17) mg/dL Creatinine (0.52-1.04) mg/dL Glucose (74-99) mg/dL POC Glucose (mg/dL) 141 H 159 H 180 H (75-99) mg/dL 10/29/20 10/29/20 10/29/20 Range/Units 03:16 03:16 06:16 RBC 2.56 L (3.80-5.40) m/uL Hgb 7.3 L (11.4-16.0) gm/dL Hct 22.4 L (34.0-46.0) % RDW 16.7 H (11.5-15.5) % Sodium 134 L (137-145) mmol/L BUN 46 H (7-17) mg/dL Creatinine 2.01 H (0.52-1.04) mg/dL Glucose 158 H (74-99) mg/dL POC Glucose (mg/dL) 172 H (75-99) mg/dL 10/29/20 Range/Units 11:37 RBC (3.80-5.40) m/uL Hgb (11.4-16.0) gm/dL Hct (34.0-46.0) % RDW (11.5-15.5) % Sodium (137-145) mmol/L BUN (7-17) mg/dL Creatinine (0.52-1.04) mg/dL Glucose (74-99) mg/dL POC Glucose (mg/dL) 159 H (75-99) mg/dL Microbiology - Last 24 Hours (Table) 10/22/20 09:36 Blood Culture - Final Blood No Growth after 144 hours Assessment and Plan Assessment: Impression: Acute hypoxic respiratory failure secondary to COVID-19 pneumonia and ARDS secondary to COVID-19 pneumonia, patient was transferred to the ICU on 09/11, intubated on 09/11, received REM on 09/11, received T OCI on 09/11, tracheostomy and PEG tube placement on 09/18 remains on mechanical ventilation with volume control plus mode 375, tidal volume, FiO2 50% PEEP of 8 rate of 32. Patient tolerated few hours of weaning the day before yesterday, and she tolerated 45 minutes of weaning yesterday on pressure support and CPAP. Plan to give the patient more weaning trials today. And will use pressure support of 14 and CPAP. Acute kidney injury with complete shutdown of urine output/anuria, requiring hemodialysis. Remains on hemodialysis , resume dialysis tomorrow on Friday. Acute diabetic ketoacidosis and COVID-19 pneumonia on her initial presentation. Sepsis secondary to COVID-19 pneumonia Type 2 diabetes poorly controlled. History of hypertension. Generalized anxiety disorder. Morbid obesity BMI of 54.2. Status post tracheostomy and PEG tube placement on 09/18. Corneal injury, punctate keratitis left eye. Acinetobacter in sputum, patient remains on cefepime. Critical illness polyneuropathy and myopathy Non sustained ventricular tachycardia. Recommendation: Continue ventilatory support. Chest x-ray has shown significant and dramatic improvement today compared to the last 50 days. Continue daily trials of weaning with a pressure support and CPAP. We will use pressure support of 15 and CPAP. Continue physical therapy. Continue insulin and adjust dose accordingly. Continue Seroquel. Continue cefepime for Acinetobacter infection. Resume dialysis tomorrow. Continue physical therapy.. Continue Lovenox 30 mg subcu daily Continue enteral feeding/nutrition support. Continue GI and DVT prophylaxis. Discharge planning to LTAC is in progress. Time with Patient: Less than 30
[2020-10-29] MEDS: ONDANSETRON 4 MG/2 ML VIAL IVP PRN (14:03)
[2020-10-29] MEDS: CEFEPIME 1 GM in SODIUM CHLORIDE 0.9% 50 ML IVPB SCH (14:04)
[2020-10-29 18:02] LABS: Glucose,Whole Blood 157 mg/dL (75-99)
[2020-10-29] MEDS: QUEtiapine 50 MG TAB PO SCH (22:41)
[2020-10-29 23:50] LABS: Glucose,Whole Blood 150 mg/dL (75-99)
[2020-10-30] MEDS: INSULIN ASPART (NovoLOG) 100 UNIT/ML VIAL SQ SCH ×10 (00:04→23:34)
[2020-10-30] MEDS: SEVELAMER 800 MG TAB PO SCH ×5 (00:05→23:32)
[2020-10-30] MEDS: NYSTATIN 100,000 UNIT/ML SUSP 500,000 UNIT/5 ML CUP PO SCH ×5 (00:52→23:33)
[2020-10-30] MEDS: HYDROmorphone 0.5 MG/0.5 ML SYRINGE IVP PRN ×3 (02:22→21:41)
[2020-10-30 04:09] LABS: Anisocytosis Slight; Basophils % (A) 0 %; Eosinophils # (A) 0.5 k/uL (0-0.7); Eosinophils % (A) 5 %; HCT 21.9 % (34.0-46.0); HGB 7.2 gm/dL (11.4-16.0); Hypochromasia Moderate; Lymphocytes % (A) 11 %; MCH 28.8 pg (25.0-35.0); MCHC 32.6 g/dL (31.0-37.0); MCV 88.4 fL (80.0-100.0); Mean Platelet Volume 9.2; Monocytes # (A) 0.7 k/uL (0-1.0); Monocytes % (A) 8 %; Neutrophils # (A) 6.6 k/uL (1.3-7.7); Neutrophils % (A) 74 %; Platelet Count 258 k/uL (150-450); Poikilocytosis Slight; RBC 2.48 m/uL (3.80-5.40); RDW 16.9 % (11.5-15.5); WBC 8.9 k/uL (3.8-10.6)
[2020-10-30 04:27] LABS: Calcium 10.1 mg/dL (8.4-10.2); Total Bilirubin 0.2 mg/dL (0.2-1.3); Total Protein 5.7 g/dL (6.3-8.2)
[2020-10-30 06:09] LABS: Glucose,Whole Blood 184 mg/dL (75-99)
[2020-10-30] MEDS: INSULIN DETEMIR (LEVEMIR) 100 UNIT/ML SYR SQ SCH ×2 (06:39→21:17)
[2020-10-30] MEDS: PANTOPRAZOLE 40 MG/10 ML VIAL IVP SCH ×2 (08:53→21:16)
[2020-10-30] MEDS: ONDANSETRON 4 MG/2 ML VIAL IVP PRN (08:54)
[2020-10-30] MEDS: ENOXAPARIN 30 MG/0.3 ML SYRINGE SQ SCH (08:54)
[2020-10-30] MEDS: CHLORHEXIDINE GLUCONATE 15 ML CUP MUCOUS MEM SCH ×2 (08:54→21:17)
[2020-10-30] MEDS: ASCORBIC ACID 500 MG TAB PO SCH ×2 (09:02→21:17)
[2020-10-30] MEDS: ESCITALOPRAM 10 MG TAB PO SCH (09:02)
[2020-10-30] MEDS: CHOLECALCIFEROL 25 MCG (1000 IU) TABLET PO SCH (09:02)
[2020-10-30] MEDS: DILTIAZEM ORAL 60 MG TAB PO SCH ×3 (09:02→21:18)
[2020-10-30] MEDS: HYDROPHILIC CREAM 180 GM TUBE TOPICAL SCH (09:03)
[2020-10-30] MEDS: METOPROLOL TARTRATE 50 MG TAB PO SCH ×2 (09:03→21:18)
[2020-10-30] MEDS: NYSTATIN 100,000 UNIT/GM POWD 15 GM TOPICAL SCH ×3 (09:04→21:18)
[2020-10-30] MEDS: ALBUTEROL HFA INHALER INHALATION SCH ×4 (10:04→21:16)
--- NOTE | 2020-10-30 10:18 | P.PN ---
Subjective Progress Note Date: 10/30/20 Principal diagnosis: Acute respiratory failure secondary to Covid 19 pneumonia. Patient was reevaluated today on 10/05/2020, remains in the ICU, intubated, mechanically ventilated, patient is doing worse today compared to the last few days, her chest x-ray is worsening, her O2 requirement is rising and she is back on the percent FiO2, I have also increased her PEEP to 16, assist control rate was increased to 52, FiO2 is on the percent. ABG earlier today on 70% FiO2 showed a pO2 of 56 pCO2 of 50 pH of 7.32. She was on assist control rate of 28 tidal volume of 400 FiO2 70% and PEEP of 14. Patient had to be placed on a higher dose of propofol which was increased to 70 fentanyl is at 2 mcg/kg/m, patient will be placed on Nimbex as I'm having difficulty oxygenating the pat ient in spite of high FiO2. She is scheduled to undergo hemodialysis again today, she had 4 L off yesterday. Remains on tube feeds using vital AF at 30 MLS per hour. Patient is tachycardic rate is 129, blood pressure is marginal 86/45, hence may recommend adding norepinephrine. The overall picture clearly showing deterioration in this patient's clinical status, and I have a feeling that this patient will continue to do poorly and she is now maximized on treatment. Again her chest x-ray is showing significant worsening of her infiltrates. Patient was reevaluated today on 10/06/2020, remains in the ICU, intubated and mechanically ventilated, and she is presently in prone position since last night for the next few hours until dialysis which is supposed to start sometime in the next couple of hours. Patient remains on assist control mode of mechanical ventilation, it is volume control with volume of 350 rate of 3 to FiO2 65%. 14. Her ABG showed a pO2 of 68 pCO2 of 52 pH of 7.28. Patient remains on propofol at 75 fentanyl at 3 mcg/kg/h she is also on norepinephrine at 0.02 and Nimbex at 3 mcg/kg/m. Patient is scheduled to have hemodialysis today. Chest x-ray continues to show evidence of bilateral interstitial infiltrates. Patient is on enteral feeding in the form of Nepro at 30/30. Patient has been proned now for the last 17 hours. Electrolytes are normal however her BUN is 30 creatinine 2.93. Blood sugar is 147 WBC count is 5.1 hemoglobin is 11.4. Patient remains on the COVID-19 cocktail. Remains on albuterol, Symbicort, Decadron 4 mg IV push daily, Lovenox 30 mg subcu daily. Insulin protocol. Her tonic 40 mg IV push daily. Off antibiotics. Patient was reevaluated today on 10/07/2020, remains in the ICU, intubated and mechanically ventilated, presently receiving hemodialysis. She is on assist control rate of 32, tidal volume of 350, FiO2 is up to on the percent today, and PEEP of 14. Higher PEEP did not seem to help much, hence I kept her on a PEEP of 14. ABG today showed a pO2 of 63 pCO2 53 pH of 7.25. A shunt is on Nimbex at 4 mcg/kg/m, fentanyl 3 mcg/kg/h, norepinephrine at 0.07 mcg/kg/m, propofol at 75 mcg/kg/m. Again the patient is receiving hemodialysis, and I have instructed the nurses today to go back into prone position after she is done with dialysis. Chest x-ray continues to show worsening interstitial infiltrates and ARDS pic ture. Labs were all reviewed. Her medications were all reviewed today. Basic metabolic profile is normal BUN is 26 creatinine 2.59. LDH is 955 and C- reactive protein is 22.1. Not much of a change in the last few days. Patient was reevaluated today on 10/08/2020, remains in the ICU, intubated and mechanically ventilated, patient is presently in prone position her ABG this morning showed significant improvement in her oxygenation, however continues to have a combined metabolic and respiratory acidosis. She is now on assist control of 350 rate of 36 FiO2 down to 60% PEEP at 14. ABG on 100% showed a pO2 of 209 pCO2 of 59 pH of 7.15. Her assist control rate was increased to 36. Kept her on the same tidal volume of 350. 2 A of bicarb were given. Patient is also on bicarb drip. Patient remains on propofol at 75 mcg/kg/m, she is on Nimbex at 4 mcg/kg/m, and norepinephrine at 0.01 mcg/kg/m. Patient is also on fentanyl at 3 mcg/kg per hour. During my evaluation, the patient was in prone position, however should be placed back in supine position once dialysis is ready and the patient will be dialyzed again today. Chest x-ray from yesterday continues to show evidence of interstitial edema and ARDS. No chest x-ray has been done yet today because the patient was in prone position. Patient remains on Decadron, remains on Lovenox, she is off antibiotics for now. CBC showed WBC 9.9 hemoglobin is 9.1. Hematocrit is 28.7. Electrodes are normal. BUN is 29 and creatinine 2.44. Bicarb is 20. LDH is up a bit 1026, C-reactive protein is about the same at 19.7. Progress note dated 10/09/2020. This is a 35-year-old black female with history of acute COVID 19 infection, with acute hypoxemic respiratory failure. She was admitted way back on September 10. Because of failure to wean from mechanical ventilation, she underwent tracheostomy and PEG tube placement on September 18. Currently remains on the ventilator. She is on the VC + (PRVC) modality, with a targeted tidal volume 350 and inspiratory time of 0.9 seconds. Her rate is set at 36. FiO2 70%, and PEEP of 14. On those settings, her arterial blood gases show a PaO2 of 72, pCO2 47, and pH 7.23. Currently, the patient's getting daily hemodialysis. Her drips including propofol at 75 mcg/kg/m, Nimbex at 3.5 mcg/kg/m, with [id number] monitoring, fentanyl at 3 g kilogram per hour, norepinephrine at 7 mcg/m, saline at 20 mL an hour, and vital 1.2 at 10 mL an hour, which is goal. White count 5.4, hemoglobin 9.2, hematocrit 28.8, and platelet count 217,000. Sodium 137, potassium 4.2, chlorides 108, CO2 19, anion gap 10, BUN 22, and creatinine 1.64. The patient's chest x-ray is consistent with bilateral infilt rates, and is essentially unchanged, and consistent with a diagnosis of coronavirus pneumonia. Progress note dated 10/10/2020. 35-year-old black female, with a history of COVID 19 infection and acute hypoxemic respiratory failure. She was admitted way back on September 10. Because of failure to wean from mechanical ventilation, she underwent tracheostomy and PEG tube placement on September 18. She remains on the mechanical ventilator. She is on the pressure regulated volume control modality. Her targeted tidal volume is 350 mL, and her inspiratory time 0.9 seconds. The patient's on 70% FiO2, PEEP o f 14, with a rate of 36. The patient is receiving Nimbex at 4.5 mcg/kg/m, propofol at 65 mcg/kg/m, norepinephrine at 3.5 mcg/m, fentanyl at 2.5 mcg/kg/h, and vital AF 1.2 at 10 mL an hour which is goal. The patient's blood gases from this morning show a PaO2 of 79, 5, and a pH is 7.29. Today's chest x-ray is currently still pending. Overnight, there've been no major changes in her condition. White count 7.8, hemoglobin 7.5, hematocrit 23.1, and platelet count 267,000. Sodium 139, potassium 3.9, chlorides 109, CO2 20, anion gap 10, BUN 20, with creatinine 1.29. Progress note dated 10/11/2020. 35-year-old black female with a history of COVID 19 infection and acute hypoxemic respiratory failure. She was admitted back on September 10. Because of failure to wean from mechanical ventilation, she underwent tracheostomy and PEG tube placement on September 18. She remains on the mechanical ventilator to this day. Currently, she is on pressure regulated [place] control, with a targeted tidal volume of 350, inspiratory time of 0.9 seconds, FiO2 70%, PEEP of 14, and a rate of 36. Her blood gases show a PaO2 of 74, pCO2 46, pH 7.28. In an attempt to reduce the FiO2, I was going to go up on the PEEP, but I was reminded that the patient has a issue with high airway pressures, potentially causing airway and alveolar trauma. For that reason, I will switch her to volume assist control modality, with a tidal volume at 325, rate 32, FiO2 70%, and PEEP of 14. This will cause permissive hypercapnic ventilation. I'm okay with this, and I will except a pH of 7.15 or higher. He blood gas will be done in one hour. The patient has daily hemodialysis. We will attempt to prone the patient for 16 hours today. She apparently does well with that modality. Currently, she is on saline at KVO, propofol at 65 mcg/kg/m, fentanyl at 2.5 mcg/kg/h, Nimbex at 3.5 mcg/kg/m, and norepinephrine has been weaned off. She is getting vital AF, at 10 mL an hour, which is goal. Over the last 3 days, since I've been seeing her, there is not been much in the way of progress. White count 9.3, hemoglobin 8.1, hematocrit 26.4, platelet count 276,000. Sodium 136, potassium 4.3, chlorides 103, CO2 20, anion gap 13, BUN and creatinine were 20 and 1.14. Chest x-ray today shows improvement of volume status. Progress note dated 10/12/2020. 35-year-old black female again seen in the intensive care unit, room 265. She has a history of coronavirus pneumonia with acute hypoxemic respiratory failure. She was admitted way back on September 10. She ended up with a tracheostomy and PEG tube placement on September 18 for failure to wean from mechanical ventilation. She remains on the ventilator. She is on volume assist control mode rate of 32, tidal volume 325, FiO2 70%, PEEP of 14. Arterial blood gases show pO2 of 54, pCO2 60, pH is 7.17. She's getting hemodialysis today. Peak airway pressures about 21 cm water. He is getting propofol at 75 mcg/kg/m, fentanyl at 3.5 mcg/kg/h, Nimbex at 7 mcg/kg/m, and saline at KVO. Her tube feeds include vital AF at 10 mL an hour, which is goal. She currently tested negative for coronavirus. She is getting hemodialysis today. Chest x-rays essentially unchanged. White count 10.4, he will May 0.1, hematocrit 25.9, platelet count 273,000. Sodium 133, potassium 4.7, chlorides 100, CO2 19, anion gap 14, BUN and creatinine were 21 and 0.91. This electrolyte profile consistent with an anion gap metabolic acidosis. Saturations currently are 95%. Medications are reviewed. Progress note dated 10/13/2020. 35-year-old black female, seen again in the ICU, room 265. She has a history of coronavirus pneumonia with acute hypoxemic respiratory failure. She was admitted to this hospital on the . She ended up with a tracheostomy and PEG tube being placed on September 18 for failure to wean from mechanical ventilation. She remains on mechanical ventilator. Currently, she is on the volume assist control mode, rate 32, tidal volume 325, FiO2 70%, PEEP of 14. Arterial blood gases show pO2 70, pCO2 of 56, and a pH is 7.26. The patient is currently also on Nimbex at 2.5 mcg/kg/m with train of 4 monitoring, propofol at 50 mcg/kg/m, and fentanyl at 2 mcg/kg/h. The patient's also getting vital AF and 10 mL an hour, which is goal. The patient's airway pressures today are a bit better. Her peak airway pressures are in the low 40s. While she was being prone yesterday, there was a significant cuff leak. Hence, she had be placed in the supine position. White count 14.2, hemoglobin 8.3, hematocrit 26.4, and platelet count 285,000. Sodium 134, potassium 4, chlorides 99, CO2 23, anion gap 12, BUN 21, and creatinine 0.70. Microbiology is all negative. Chest x-ray continues to show diffuse bilateral infiltrates. Progress note dated 10/14/2020. 35-year-old black female seen again in room 265. She has a history of coronavirus pneumonia with acute hypoxemic respiratory failure. She was admitted to the hospital on September 10. She ended up with a tracheostomy and PEG tube being placed on September 18 for failure to wean from mechanical ventilation. Roslyn oconnor remains on the ventilator. Currently, she is on volume assist control mode, rate 32, tidal volume 325, FiO2 70%, and PEEP of 14. She's receiving propofol 60 mcg/kg/m, fentanyl at 3 mcg/kg/h, and Nimbex at 7 mcg/kg/m. The patient is also receiving saline at 20 mL an hour. She's been on and off of norepinephrine area and currently is on hold. She is also receiving vital AF at 10 mL an hour which is goal. Laboratory data from today is not yet available. From October 13, white count 14.2, hemoglobin 8.3, and platelet count was normal. Also, blood gases from yesterday show pO2 70, pCO2 of 56, and pH is 7.26. Electrolytes are essentially within normal range. Chest x-ray from yesterday continues to show bilateral infiltrates, without much change. Progress note dated 10/15/2020. 35-year-old black female, again seen in room 265. She has a history of coronavirus pneumonia, with acute hypoxemic respiratory failure. She was admitted to the hospital back on September 10. She ended up with a tracheostomy and PEG tube being placed on September 18 for failure to wean from mechanical ventilation. She's been in the hospital now for 35 days. Currently remains on the ventilator. She's on the volume assist control mode, rate 32, tidal volume 325, FiO2 70%, EPAP of 18. Blood gases show pO2 of 80, pCO2 61, pH is 7.15. The patient will have hemodialysis today. Yesterday, hemodialysis was done, and 4 L was removed. The patient is currently on propofol at 70 mcg/kg/m, fentanyl at 3 mcg/kg/h, Nimbex at 8 mcg/kg/m, no epinephrine at 6 mg/m, 0.9 at 10 mL an hour, and vital AF at 10 mL an hour which is goal. Unfortunately, she is twitching 4 out of 4 on the Nimbex at the current dose, and we will switch her to rocuronium at 5 mcg/kg/m. We'll titrate accordingly, and monitor the patient with [id number] testing. Current laboratory data includes a white count of 33.9, hemoglobin 8.5, hematocrit 26.4, and platelet count 367,000. Sodium 135, potassium 4.5, chlorides 100, CO2 21, anion gap 14, BUN 19, creatinine 0.96. Microbiologic data is all negative. Progress note dated 10/30/2020. 35-year-old black female, who is now been in the hospital for 50 days. The patient was admitted back on September 10. The patient underwent tracheostomy and PEG tube placement on September 18, for chronic respiratory failure, failure to wean from mechanical ventilation, secondary to severe coronavirus pneumonia and hypoxemia. She remains on mechanical ventilator. She is on the VC plus mode, with a targ eted tidal volume of 375, and inspiratory time of 0.9 seconds. The rate of 32, FiO2 45%, and PEEP of 6. Blood gases were not done today. She remains on saline at 10 mL an hour, and vital AF at 46 mL an hour, which is goal. We will attempt to place her on some pressure support and CPAP. We'll use settings of 15/5. She did very well with that last week. Currently, she remains on cefepime. A white count 8.9, hemoglobin 7.2, hematocrit 21.9, and a normal platelet count. Sodium 133, potassium 5, chlorides 97, CO2 23, anion gap is 13, BUN 69, and creatinine 2.67. One of the discharge issues, as the patient is currently still on daily hemodialysis. No chest x-ray today. Objective - Vital Signs Vital signs: Vital Signs Temp 98.4 F 10/30/20 08:00 Pulse 109 H 10/30/20 08:00 Resp 32 H 10/30/20 08:00 BP 109/64 10/30/20 08:00 Pulse Ox 97 10/30/20 08:00 Intake & Output 10/29/20 10/30/20 10/30/20 18:59 06:59 18:59 Intake Total 706 762 142 Output Total 0 0 0 Balance 706 762 142 Weight 92.6 kg Intake: IV 110 120 20 0.9 Normal Saline @ KVO 110 120 20 Tube Feeding 506 552 92 Other 90 90 30 Output: Urine 0 0 0 Other: Voiding Method Incontinent ABP, PAP, CO, CI - Last Documented Arterial Blood Pressure 136/76 - Exam No acute distress, currently not sedated and not paralyzed, with a midline tracheostomy tube in place. HEENT examination is grossly unremarkable. Neck supple. Full range of motion. No adenopathy thyromegaly or neck vein distention. Midline tracheostomy tube noted. Cardiovascular examination reveals regular rhythm rate. S1-S2 normal. No S3 or S4. No discernible murmur noted. Heart sounds are distant. Heart rate 109 beats per minute. Lungs reveal diffuse coarse rhonchi and bilateral crackles. No wheezes. Breath sounds equal bilaterally but diminished throughout. Saturations ranged from 94- 98%. Abdomen soft bowel sounds are heard. No masses or tenderness. PEG tube noted. Extremities are intact. No cyanosis clubbing or edema. Skin is without rash or lesion. Neurologic examination is stable. The patient has significant extremity weakness. - Labs CBC & Chem 7: 10/30/20 03:34 10/30/20 03:34 Labs: Abnormal Lab Results - Last 24 Hours (Table) 10/29/20 10/29/20 10/29/20 Range/Units 11:37 18:00 23:48 RBC (3.80-5.40) m/uL Hgb (11.4-16.0) gm/dL Hct (34.0-46.0) % RDW (11.5-15.5) % Sodium (137-145) mmol/L Chloride (98-107) mmol/L BUN (7-17) mg/dL Creatinine (0.52-1.04) mg/dL Glucose (74-99) mg/dL POC Glucose (mg/dL) 159 H 157 H 150 H (75-99) mg/dL AST (14-36) U/L Total Protein (6.3-8.2) g/dL Albumin (3.5-5.0) g/dL 10/30/20 10/30/20 10/30/20 Range/Units 03:34 03:34 06:07 RBC 2.48 L (3.80-5.40) m/uL Hgb 7.2 L (11.4-16.0) gm/dL Hct 21.9 L (34.0-46.0) % RDW 16.9 H (11.5-15.5) % Sodium 133 L (137-145) mmol/L Chloride 97 L (98-107) mmol/L BUN 69 H (7-17) mg/dL Creatinine 2.67 H (0.52-1.04) mg/dL Glucose 149 H (74-99) mg/dL POC Glucose (mg/dL) 184 H (75-99) mg/dL AST 39 H (14-36) U/L Total Protein 5.7 L (6.3-8.2) g/dL Albumin 3.0 L (3.5-5.0) g/dL Assessment and Plan Assessment: Acute hypoxemic respiratory failure, secondary to COVID 19 pneumonia, with ARDS, with admission to hospital on September 10, transferred to ICU on the , intubation on September 11, and tracheostomy and PEG tube placement on September 18. Acute respiratory distress syndrome (ARDS). Acute kidney injury, currently on hemodialysis. Failure to wean from mechanical ventilator, likely secondary to critical illness polyneuropathy/myopathy. Acute diabetic ketoacidosis, resolved. Sepsis, secondary to COVID 19 pneumonia. Acinetobacter tracheobronchitis as bronchopneumonia, currently on cefepime. Nonsustained ventricular tachycardia. Anion gap metabolic acidosis. Poorly controlled type 2 diabetes. Elevated inflammatory markers secondary to coronavirus infection. History of essential hypertension. Generalized anxiety disorder. Morbid obesity. Plan: Plan dated 10/09/2020. The patient remains on the pressure regulated volume control mode of ventilation. The patient is being nourished at goal. The patient remains on p ropofol, Nimbex, and fentanyl. In addition, the patient remains on norepinephrine. Labs, x-rays, and medications are all reviewed. Prognosis is very poor. We will continue to follow. Additional recommendations and suggestions are forthcoming. The patient remains on daily hemodialysis. Plan dated 10/10/2020. The patient remains about the same. She remains on the ventilator. The patient is status post tracheostomy and PEG tube placement. She remains sedated with propofol and fentanyl. She is also chemically paralyzed with Nimbex. She remains on norepinephrine at 8.5 mcg/m for low blood pressure. Cultures are all negative. She remains on periodic hemodialysis. Additional recommendations and suggestions are forthcoming. Diagnosis is guarded. We will continue to follow make recommendations where appropriate. Plan dated 10/11/2020. The patient remains on mechanical ventilator. We will attempt to prone the patient today for 16 hours, to improve oxygenation. In addition, the patient is switched from pressure regulated volume control modality to volume assist control. Settings include tidal volume at 325, rate 32, FiO2 70%, PEEP of 14. A repeat blood gas to be done in an hour. Additional recommendations and suggestions are forthcoming. The patient is currently undergoing daily hemodialysis. Prognosis remains very poor. We will continue to follow make recommendations where appropriate. Plan dated 10/12/2020. The patient remains on mechanical ventilator. We'll see for can wean down the Nimbex. This seems like a high-dose to me. He should be doing [id number] monitoring. The patient is receiving hemodialysis today. Saturations are 95 and 96%. Peak airway pressures 41 cm water. Additional recommendations and suggestions are forthcoming. Prognosis is very guarded. She is getting nutrition at goal. The patient does better in terms of her saturations, when she is in the prone position. Today we will place her in the prone position again. Plan dated 10/13/2020. The patient remains on mechanical ventilator. She did not do well yesterday with prone because of the tracheostomy cuff leak. Her airway pressures are a bit lower today. She remains on Nimbex, propofol, and fentanyl. She is getting nutrition at goal. Today's blood gases are reasonable. She's currently getting daily hemodialysis. We will continue to follow. Additional recommendations and suggestions are forthcoming. We'll attempt to get the paralysis off. No yang tional recommendations are made at this time. Plan dated 10/14/2020. The patient remains on mechanical ventilator. Essentially, she's been stable on propofol, fentanyl, and Nimbex. She remains on vital AF at goal. She's been on and off norepinephrine through the night. Labs and x-rays from today are still pending. Vent settings has not changed. We will continue to follow make recommendations where appropriate. Overall prognosis remains very guarded. Plan dated 10/15/2020. The patient remains on the ventilator. She remains on propofol, fentanyl, and Nimbex. She's also on norepinephrine at 6 mg/m. We don't seem to be adequately paralyzing this patient. We will switch to a different paralytic. She did have hemodialysis yesterday. 4 L was removed. She'll have hemodialysis today. Once we have her properly paralyzed, the patient will have a repeat blood gas. I may end up increasing her rate up to 36. Overall prognosis remains very poor. Plan dated 10/30/2020. The patient will begin be placed on pressure support of 15 and CPAP of 5. She apparently did well with the settings late last week. The patient is being nourished at goal. A gases were not done. She remains on cefepime for the Acinetobacter. Overall prognosis remains very poor. The patient has profound weakness, and failure to wean from mechanical ventilation, secondary to critical illness polyneuropathy/myopathy. We are attempting to place the patient. Daily hemodialysis is hampering our efforts. Time with Patient: Greater than 30
[2020-10-30 11:07] LABS: Glucose,Whole Blood 148 mg/dL (75-99)
--- NOTE | 2020-10-30 12:00 | P.PN ---
Subjective Progress Note Date: 10/30/20 HISTORY OF PRESENT ILLNESS 35-year-old female patient of Dr. Arroyo with past medical history of type 2 diabetes comes in with acute shortness of breath associated with high light s ugars. Patient on admission was found to have a fever of 101.5 pulse rate 125 respiratory rate 20. Blood pressure 132/106. On chest x-ray obtained in the ER suggestive of bilateral infiltrates concerning for call with pneumonia. COVID PCR was positive. On admissions patient had an ABG with a pH of 7.14 pCO2 of 20, pO2 of 59, bicarb of 7. Patient's blood sugar on admission was 424 on assessment today patient's blood work patient had a sodium 135 potassium 5.4 chloride 123 bicarb less than 5 and creatinine 0.73. D-dimer was elevated on admission patient 9 28 patient given 1 L of IV fluids followed by normal saline running at 200 mL/h. Patient was positive for acetone on admission. She will anion gap closed and was switched to D5NS. Insulin drip was continued during the night and was switched to patient's home medication this morning. One dose of remdesiver was ordered. Apparently around noon, A- team was called on the patient secondary to hypoxia patient's oxygen saturation dropped to the 70s and 80s on 100% nonrebreather. Patient was switched to BiPAP on 18/12 and is doing better o FiO2 of 80%. ABG was obtained and ph was 7. 14 pCO2 of 28 bicarb of 7 pO2 of 17. Patient noted to have uncompensated metabolic acidosis with compensated respiratory alkalosis. Stat dose of 1 amp bicarb was given and followed by sodium bicarbonate drip. Insulin drip restarted. Patient's initiated on dexamethasone 6 mg IV twice a day. Potassium phosphate ordered as phosphorus is low. Patient's repeat blood gases suggest a pH of 7.25, CO2 32 pO2 of 72 bicarb 14. I will not normal saline at 100 mL/h as patient's anion gap has increased. Patient given 1 dose of 2 mg of morphine with improvement in respiratory rate. One dose of Ativan 0.5 mg was given. Xanax 0.25 twice a day along with Ativan 0.5 IV every 6 hours ordered for the patient. Vitals were evaluated patient pulse 129 [id number]. She was moved to the ICU. Precedex drip was initiated. Lopressor was initiated at 25 twice a day. Metoprolol tartrate 5 mg IV every 6 hours. Systolic blood pressure more than 160. Started chest x-ray was obtained and suggest stable bilateral consolidation suggestive of COVID-19 pneumonia. 09/12 patient is seen in the ICU is currently mechanically ventilated and sedated on vent settings of respiratory rate 36, tidal volume 375 FiO2 80% PEEP of 18.. Vital signs reviewed patient had a temp of 100.4 pulse 150 respiratory rate 36 oxygen saturation 95% on 80% on fio2 .'s labs are reviewed which patient had a d-dimer 1.84 that is increased to 14.3. Arterial Blood gas suggest ph 7.35, CO2 40, po2 62, . Her BMP suggest a sodium 135 potassium 3.7 chloride 112 bicarb 21 creatinine 1.57 for calcitonin is 3.5 CRP is increased from 8.78.2 LDH is increased to 2614. Patient remains on Pneumovax, propofol drip. Lovenox increased to 50 subcu twice a day. Patient received 2 L of IV fluids. Continue IV fluids at 100 mL/h. Bicarb drip discontinued patient initiated on Zosyn 3.375 every 8 hours. Continue insulin drip at 4 units per hour. Patient is currently in prone positioning 09/13: Patient evaluated in the ICU remains on Ventilation continues to be sedated, in prone position. Vent settings are respiratory rate 36, tidal vital 375, FiO2 70% PEEP of 18. ABG shows pO2 of 82, PCO2 of 39, pH is 7.19. Latest labs show WBC 11.1, hemoglobin 13.2, d-dimer still pending, but yesterday was up to 14.3. Creatinine up to 3.4, BUN 24 sodium 137, potassium 4.0. Patient's urine output has been low, nephrology on consult. Bicarb drip increased to 100 miles an hour, receiving another liter of normal saline, she did have a ultrasound that showed unremarkable bilateral kidneys. Repeat chest x-ray showed bilateral lung infiltrates that are stable. Anion gap has closed, will start Lantus 10 units at at bedtime Novolog every 6 hours. 09/14: Patient is seen in the ICU, still currently mechanically ventilated and sedated. She continues in the prone position. Her oxygen quickly drops if she is not in prone. Patient's kidney function has worsened. Laboratory values show creatinine of 4.87, BUN 33, LDH 2191, C-reactive protein 2.7. ABG shows pH 7.32, pO2 of 60, pCO2 43. Patient is making almost no urine overnight. Nephrology is following patient continues on cefepime for urinary tract infection, culture is still pending. Vascular has been consulted for placement of temporary hemodialysis catheter for plans for dialysis. 09/15: Patient evaluated in the ICU, continues to be mechanically ventilated and sedated on assist control ventilation rate of 36, tidal volume 375, FiO2 100% and PEEP of 18. ABG today shows pO2 58, pCO2 of 45, and pH 7.35. She continues on tube feedings. Yesterday patient underwent ultrasound-guided right internal jugular non-tunneled hemodialysis catheter placement. Patient underwent hemodialysis treatment last night and plans have another hemodialysis treatment today. She continues to make almost no urine. She continues on cefepime for antibiotic coverage, and continues on Decadron and Lovenox. 09/16: Patient seen on follow-up remains in the ICU mechanically ventilated and sedated. She continues on assist control rate of 36, tidal volume 375, FiO2 100% and PEEP of 20. PEEP had to be increased due to patient had to be in supine position for dialysis, will go back to prone position once dialysis is complete. ABG shows pH 7.32, pCO2 49, PaO2 61. Laboratory values showed WBC 11.2, hemoglobin 11, sodium 134, creatinine 4.44, BUN 38. Urine culture shows no growth, blood cultures show no growth to date. Repeat chest x-ray shows bilateral pleural effusions, correlate for ARDS, pulmonary edema, diffuse pneumonia, findings are stable from last exam. Patient does not require any pressors, blood pressure 133/57, heart rate 78. 5/16: Patient was evaluated in the ICU today for follow-up. She continues to be intubated and on mechanical ventilation. Current vent settings are tidal volume 375, FiO2 100% and PEEP of 20. ABG shows pH 7.37, pCO2 40, pO2 102. She continues with intermittent prone positioning. Patient continues to have almost no urine output, maintained on dialysis. Patient received dialysis yesterday without complication. Laboratory values revealed WBC 10.3, hemoglobin 10.4, sodium 132, potassium 3.1, BUN 33, creatinine 4.29, LDH 1913, C-reactive protein 1.3. Urine and sputum cultures are negative, blood cultures show no growth to date. Consult placed to dietary to start TPN[ ] 09/18: She remains in the intensive care unit intubated and on mechanical ventilation with tidal volume 375, FiO2 60 and PEEP of 20. Patient is being prone to daily at approximately 16 hours per day. Pulmonary medicine has added in Dr. Zhang to do PEG tube and trach today. Patient is not on vasopressors. Repeat blood work reveals WBC 12.6, hemoglobin 9.8, platelet count 212. Sodium 133, potassium 3.2, chloride 102, CO2 21, BUN 35 and creatinine 4.12. Blood sugar 126. Patient underwent hemodialysis yesterday with removal of 2 L and is scheduled again today with goal of 2-3 L and is scheduled again tomorrow. 09/19: She is scheduled for hemodialysis today and is off fentanyl temporarily. Patient is status post trach and PEG tube yesterday. And she remains on mechanical ventilation. Pulse ox 93-95%. She has been afebrile, heart rate 64, respiratory rate 36, blood pressure 115/50. Fentanyl is off to improve blood pressure for hemodialysis which is scheduled for today. Contacted vascular surgery about permanent hemodialysis catheter. Repeat blood work reveals WBC 14.3, hemoglobin 9.6, platelet count 200. D-dimer 6.48. LDH 1686. C-reactive protein 1.1. BUN 34 creatinine 3.81. Sodium 130, potassium 3.5, chloride 101, CO2 18. Blood sugars running between 101 198. Plan is to wean off Pneumovax today. Patient remains on insulin drip. Repeat chest x-ray reveals bilateral multifocal confluent opacities consistent with COVID-19. Some improved aeratio n periphery of the left lung and worsening opacities throughout the right lung. 09/20: She remains in the intensive care unit on mechanical ventilation. She has been afebrile, heart rate 65, respiratory rate 37, blood pressure 121/70, pulse ox 91-99%. Repeat blood work reveals WBC 14.5, hemoglobin 9.1, platelet count 216. D-dimer 6.13. Sodium 133, potassium 3.1, chloride 102, CO2 18, BUN 35 and creatinine 4.27. Blood sugars running between 128 and 143. LDH 1717. C- reactive protein 1.7. Patient remains on insulin drip which will be transitioned to NovoLog scale every 6 hours. Patient is scheduled for permanent hemodialysis catheter placement today with vascular surgery. Repeat chest x-ray reveals stable diffuse bilateral interstitial and airspace disease. Possible small right effusion. His work is following [facility] Do not anticipate discharge until next week. 09/21: Patient is undergoing hemodialysis. She remains on mechanical ventilation with tidal volume 375, FiO2 down to 45 and PEEP was decreased to 15. Patient is continued on propofol, fentanyl drips. She is on tube feedings at goal. Patient was taken off insulin drip yesterday and on scale only but blood sugars are running in the 200s, Levemir scheduled at bedtime will be added. Other blood work reveals WBC 13.3, hemoglobin 8.7, platelet count 192. Sodium 137, potassium 3.6, chloride 107, CO2 18, BUN 34 and creatinine 4.21. Repeat chest x-ray is stable. 09/22: She remains in the intensive care on mechanical ventilation with tidal volume 375, FiO2 of 50 and PEEP of 10. Pulse ox is running 96%. She is afebrile, heart rate in the 50s, respiratory rate 36, blood pressure 100/64. Repeat blood work reveals WBC 16.5, hemoglobin 8.9, platelet count 213. Sodium 134, potassium 3.7, chloride 103, CO2 21, BUN 34 and creatinine 3.89. Blood sugars running in the 200s to 324. Levemir increased to 16 units at bedtime and continue NovoLog scale every 6 hours. Patient is on tube feedings at goal. She has a Haley catheter in with a scant amount of dark/brown urine. Fecal management system is in place. Repeat chest x-ray reveals diffuse bilateral airspace infiltrates persist unchanged. Patient is scheduled for hemodialysis tomorrow morning on Friday. 09/23: Patient remains on mechanical ventilation with tidal volume 3.75, FiO2 50 and PEEP of 10. pvc monitor sinus rhythm. She has no urine output. Fecal management system is in place. She is undergoing dialysis at this time with plan for removal of 2-1/2 L. She has been afebrile, heart rate in the 50s, respiratory rate 36, blood pressure 108/76 and pulse ox 89%. WBC 13.6, hemoglobin 9.1, platelet count 194. Sodium 136, potassium 3.0 and was replaced, chloride 106, CO2 21, BUN 49 creatinine 5.31. Blood sugars are running between 182 and this morning 194. Patient was still in the 200s and 300s. Levemir last evening was increased to 16 units. Patient remains on propofol and fentanyl drips. Lovenox was increased to 60 mg twice daily. 09/24: PEEP was increased today to 20, tidal volume is at 375 and FiO2 of 50%. Patient has been afebrile. She has been started on levo fed. Repeat chest x- ray reveals bilateral multifocal confluent opacities consistent with Covid 19 or ARDS redemonstrated. Nephrology will plan dialysis for tomorrow for 3 L. Patient remains on propofol fentanyl and Nimbex. WBC 12.5, hemoglobin 9.8, platelet count 161. D-dimer 13.3. Sodium 132, potassium 3.4, chloride 102, CO2 20, BUN 48 and creatinine 4.67. Blood sugars extremely elevated to 96-409. LDH 2217. 09/25: Patient remains in the intensive care unit on mechanical ventilation with tidal volume 375, FiO2 50 and PEEP of 20. Patient is afebrile, heart rate 61, respiratory rate 36, blood pressure 102/56, pulse ox 97%. Repeat blood work reveals WBC 9.3, hemoglobin 8.5 and platelet count 171. Sodium 130, potassium 3.7, chloride 100, CO2 20, BUN 61 creatinine 5.65. Blood sugars have been elev ated up to 455. Levemir increased to 20 units twice daily, NovoLog 5 units every 6 hours and continue NovoLog scale. Patient is scheduled for hemodialysis today. Repeat chest x-ray reveals bilateral multifocal and confluent opacities. Decadron and Lovenox dosing change by pulmonary. Patient is off norepinephrine. 09/26: Patient remains in the intensive care unit on mechanical ventilation with tidal volume 375, FiO2 50 and PEEP of 15. She has been afebrile, heart rate 91, blood pressure 114/68, pulse ox 99%. pvc monitor sinus rhythm. 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 Sodium 134, potassium 3.6, chloride 102, CO2 22, BUN 41 creatinine 4.21. Patient has improved blood sugars this morning running 150s and 160s. Diabetic medications were adjusted yesterday. Patient is awake and alert and interacting. Yesterday, patient had PICC line inserted by interventional radiology. Repeat chest x-ray reveals diffuse airspace infiltrates in both lung ann appear to progress slightly in the interval. 09/27: Patient remains in intensive care unit on mechanical ventilation with improvement of settings with tidal volume 375, FiO2 decreased to 40 and PEEP decreased to 10. Patient is on hemodialysis every other day and plan to remove 3 L today. Patient is more awake and alert. She is slow to respond but is able to follow simple commands. Blood sugars are running between 84 and 123. Repeat blood work reveals WBC 7.1, hemoglobin 8.1, platelets 152. Sodium 135, potassium 3.6, chloride 103, CO2 21, BUN 53 and creatinine 5.88. Repeat chest x-ray revealed cardiomegaly and pulmonary edema. Patient is on tube feedings:. Patient is not require vasopressors and is off sedation. Fecal management system remains in place for brown liquid stool. C. difficile was negative. 09/28: Patient remains on mechanical ventilation with tidal volume 375, FiO2 increased to 80 and PEEP increased to 18. Patient had a rough night was very anxious, no pain. Xanax 0.25 mg 3 times daily was added. There is concern for pulmonary embolism for which patient was started on heparin drip, she is unable to undergo CAT scan. Venous Doppler bilateral lower extremities was nondiagnostic due to extensive edema in obese patient but minimal imaging of the popliteal veins does show flow. Repeat echocardiogram has been ordered. Cefepime has also been ordered at 1 g IV piggyback every 24 hours as well as vancomycin, pharmacy dosing. Patient is back on fentanyl drip, propofol drip and norepinephrine. Blood sugars are elevated and insulin Levemir will be i ncreased to 25 mg twice daily. Ferrlecit infusion has been ordered by nephrology for 4 days. Patient is undergoing hemodialysis today.temperature max 100.2, heart rate 134, respiratory rate 34, blood pressure 120/65, pulse ox 94%. pvc monitor is sinus tachycardia. Repeat blood work reveals WBC 16.9, hemoglobin 9.7, platelet count 216. D-dimer 8.81. Sodium 134, potassium 3.8, chloride 99, CO2 25, BUN 43 and creatinine 5.36. Blood sugars in the 200s. AST 40. 09/29 Patient had declined more last 48 hours require more sedation, patient is doing hemodialysis, respiratory failure is quite bit worse this time. Patient was inquired the pain is well back on fentanyl drip. Her vent set up with PEEP is limited but higher. No new finding on culture and her chest x-ray continues shows diffuse infiltrate persistent although there is a moderate interval improvement. 09/30 patient's was seen and evaluated. PEEP was reduced to 11 as patient is maintaining good saturation at the current vent settings. 10/01 patient was seen at bedside. She is currently on assist control rate of 28 white tidal volume 350 FiO2 50% and PEEP of 10 which has been reduced by pulmonary as patient name cleaning her oxygen saturation. Arm blood gas was obtained with a pH of 7.35 pCO2 37 pO2 of 63. She remains hemodynamically stable with no need for pressors. Labs were reviewed patient's BUN is 29 crea tinine 3.93 glucose 122 albumin 2.2 sodium 131 chloride 19 hemoglobin is downtrending with a Hb of 7.3 no leukocytosis 7.1. Patient's urine output is minimal at this time. Her rate has increased to 129 and is currently on positive fluid balance even with dialysis. Last dialysis was done yesterday. Continue enteral feeding currently at goal. Antibiotic has been discontinued and continues to remain on DEXA methicillin 4 mg IV daily. 10/02 patient continues to be on trach support with mechanical ventilation. Patient was evaluated by family consumer scientist and was switched to VC control as patient was noted to be double stacking on and off throughout the night. Respiratory rate continue to 28 tidal volume increased to 400 with a PEEP for Dr. Downey. Patient is maintaining oxygen saturation 91% on the current setting. According to the nurse bedside patient saturation drops significantly or she is moved or her sedation is dropped. Patient is currently on propofol drip, fentanyl drip. She did underwent dialysis today and was able to maintain her low pressure without the need of pressors. Labs reviewed today suggest a WBC of 6.7 hemoglobin of 7.0 and d-dimer 3.9 bicarb 17 BUN 38 creatinine 4.8. LDH is 964. Sodium 1:30 likely secondary to volume overload. Urine sodium and urine osmolality ordered. Patient's glucose this morning is 146. Continue to remain on enteral feeding. Urine output is reduced. Fall catheter will be placed today. Continue to remain on dialysis. 10/03: Patient remains on mechanical ventilation and is back on propofol and fentanyl drips. Patient is currently on VC control with tidal volume 400, FiO2 55 and PEEP of 12. Patient still is not making any urine and is dialysis dependent with next treatment planned for tomorrow with removal of 3-3-1/2 L. PEG tube feedings are at goal. Fecal management system remains in place. At the time of evaluation, patient is off levophed. Repeat chest x-ray reveals stable diffuse bilateral airspace disease correlate for ARDS, pulmonary edema or diffuse pneumonia. Temperature max last evening was 101. Temperature currently 99, heart rate 106, respiratory rate 32, blood pressure 101/50, pulse ox 86%. Repeat blood work reveals WBC 6, hemoglobin 7.4, platelet count 160. D-dimer 4.05. Sodium 133, potassium 3.5, chloride 100, CO2 23, BUN 31 creatinine 3.8. Blood sugars are running between 100 and 170. Ferritin 1514. Liver function test normal. LDH 1016, C-reactive protein 13.6. Prognosis remains guarded. 10/04: Patient remains intubated on mechanical ventilation with tidal volume 400, FiO2 65, PEEP of 14. Patient continues to run fevers and repeat blood culture and urine and urine culture ordered for today. Haley catheter has been removed this patient has no significant urine output at about 20 mL per shift. BladderScan is monitored for greater than 300 and the patient is straight cathed. Hemoglobin is 6.8 and she has been ordered 41 unit of packed RBCs today. She is currently on propofol and fentanyl drips. She is scheduled for hemodialysis today. WBC 4.5, hemoglobin 6.8, platelet count 151. D-dimer 3.28. Sodium 132, potassium 4.1, chloride 100, CO2 22, BUN 37 creatinine 4.74. Blood sugars running between 97 and 110. Ferritin 1801. LDH 859. C-reactive protein 14.4. Chest x-ray reveals correlate for pneumonia, edema, ARDS. Prognosis remains guarded. 10/05: Patient remains in intensive care unit currently on mechanical ventilation with tidal volume 400, FiO2 was increased to 100 and PEEP is at 14. She continues to run fevers which have worsened with temperature max 103.1. She has been tachycardic in the 130s, blood pressure is marginal but not on vasopressors. Pulse ox currently 92%. Repeat blood work reveals WBC 5.5, hemoglobin 7.6, platelet count 190. D-dimer 2.7, ferritin 1770, LDH 932, C- reactive protein 21.4. Blood sugars are running between 100 1669. Electrolytes are normal. BUN 27 and creatinine 3.79. Pancultures were done yesterday including a straight cath for urine culture, sputum culture and blood culture. Arterial line was removed as well as midline. She is currently on propofol, fen tanyl and started on Nimbex today. 10/06: Patient remains in the intensive care unit. Today patient in prone position and remains on mechanical ventilation with tidal volume 350, FiO2 65 and PEEP of 14. Her last documented fever was yesterday at 2 PM. Heart rate is in the 120s, respiratory rate 32, pulse ox 88-92%. CBC is unremarkable. Electrolytes are normal. BUN 30 creatinine 2.93. Blood sugars are running between 135 and 164. Cultures from October 04: Blood culture no growth, sputum culture finalized, urine culture finalized. Catheter tip culture is in process. Repeat chest x-ray shows bilateral interstitial infiltrates. Patient is on tube feedings of Nepro at goal of 30 ML's per hour. Patient underwent dialysis yesterday and is scheduled for repeat dialysis today. 10/07: Patient maintains in the intensive care unit intubated and on mechanical ventilation. She is receiving hemodialysis this morning has been every day. Plan is to remove 2-1/2 L today. Vent settings have changed today with tidal volume 350, FiO2 was increased to 100% and PEEP remains at 14. She has been continued on Nimbex, fentanyl, norepinephrine and propofol. Plan is to prone position patient following dialysis. Repeat chest x-ray reveals worsening interstitial infiltrates. BUN is 26 and creatinine 2.59. LDH 955, C-reactive protein 22.1. Prognosis remains poor. 10/08: Patient remains in intensive care unit intubated and on mechanical ventilation with tidal volume 350, FiO2 60, PEEP of 14. She is pronating today. She is scheduled for hemodialysis on a daily basis. She has been afebrile, heart rate 112, respiratory rate 36, blood pressure 161/88, pulse ox 93%. Repeat blood work reveals WBC 9.9, hemoglobin 9.1, platelet count 320. Sodium 133, potassium 5.3, chloride 100, CO2 20, BUN 29 creatinine 2.44. Blood sugar running between 102 and 139. LDH 1026, C-reactive protein 19.7. 10/09: Patient is undergoing dialysis this morning. She continues to be intubated and on mechanical ventilation with tidal volume 350, 270 and PEEP of 14. Patient is also on propofol, Nimbex, norepinephrine and fentanyl drips. Repeat chest x-ray reveals persistent bilateral multifocal and confluent opacities consistent with Covid 19. She is afebrile, heart rate 116, respiratory rate 36, blood pressure 120/65, pulse ox 91%. Repeat blood work reveals WBC 5.4, hemoglobin 9.2, platelet count 216. D-dimer 2.67, ferritin 2568, LDH 794, C- reactive protein 13.9. Blood sugars have been running 90-104. Creatinine 1.64. She is on daily dialysis treatment. 10/10: She remains in the intensive care unit. She is now out of isolation as a repeat Covid test came back negative. She remains on mechanical ventilation with tidal volume 350, FiO2 70 and PEEP of 14. Patient is also on Nimbex, propofol, norepinephrine, fentanyl drips. She is on PEG tube feedings at goal and tolerating well. Repeat blood work reveals WBC 7.8, hemoglobin 7.5, platelet count 267. Sodium 139, potassium 3.9, chloride 109, CO2 20, BUN 20 creatinine 1.29. Blood sugars are running between 76 and 102. Scheduled Aiyana Log decreased to 3 units. Repeat chest x-ray reveals moderate cardiomegaly and continued pulmonary edema. Slight interval improvement. Patient is continued on daily hemodialysis. 10/11: Patient remains in intensive care unit on mechanical ventilation with tidal volume 325, FiO2 70, PEEP 14. She is currently being prone. She underwent hemodialysis this morning with removal of 4 L of fluid with plan to continue daily treatment. She is currently on Nimbex, fentanyl and propofol. No vasopressor at this time. Fecal management system remains in place. She is on tube feedings currently at hold due to prone positioning. Patient has been afebrile, heart rate 116, respiratory rate 36, blood pressure 100/58, pulse ox 93-96%. Repeat blood work reveals WBC 9.3, hemoglobin 8.1, platelet count 276. Sodium 136, potassium 4.3, chloride 103, CO2 20, BUN 20 creatinine 1.14. Blood sugars running between 133 and 202. 10/12: Patient remains in the intensive care unit. She is undergoing hemodialy sis this morning. She's been afebrile, heart rate in the 120s, respiratory rate 32, blood pressure 102/65. She is not on vasopressors. She is continued on Nimbex, fentanyl and propofol. Vent settings are currently tidal volume 325, FiO2 70, PEEP 14. Total platelet count 273. Sodium 133, potassium 4.7, chloride 100, CO2 19, BUN 21 creatinine 0.91. Blood sugars running between 121 and 143. 10/13: Patient remain in the ICU she is on hemodialysis daily, she is still on the vent with a PEEP of 14 and FiO2 of 70. Her oxygenation is marginal pulse rate still high. Patient had scratched cornea was seen in ophthalmology decided to keep doing eyedrops along with eye patch at this point. Prognosis still very bad this point. 10/14: She remains on mechanical ventilation with tidal volume 325, FiO2 70% and PEEP of 14. She did require label fed last evening for about 6 hours. She did not tolerate pronating yesterday. She is undergoing dialysis this morning with plan for removal of 4 L. Blood sugars have been low and IV fluids changed to D10 until blood sugars have recovered. Levemir and scheduled NovoLog discontinued. Patient is on tube feedings at goal there's been no change in th is. 10/15 patient remains on mechanical ventilation in the intensive care unit. FiO2 still at 70%, PEEP of 18. Blood sugars have improved since medications were adjusted. White blood cells 33.9, hemoglobin 8.5, sodium 135, BUN 19, creatinine 0.96. Patient to receive dialysis again today. Patient did run a low-grade fever throughout the night and pro calcitonin level is ordered. Chest x-ray showed continued diffuse bilateral airspace disease. Patient remains on tube feedings at goal. 10/16: Patient remains on mechanical ventilation with tidal volume 300, FiO2 70, PEEP of 15. Fecal management system is out. She is currently on low dose of norepinephrine. She is also on fentanyl drip, propofol drip, rocuronium drip. Heart rate is running in the 130s, sinus rhythm, blood pressure 121/63, pulse ox 95%. Patient is been afebrile. Repeat blood work reveals WBC 18.9, hemoglobin 7.5, platelet count 291. Sodium 135, potassium 4.2, chloride 101, CO2 19, BUN 25 and creatinine 1.36. Blood sugars are running between 143 and 199. Patient is on scale insulin only. Repeat chest x-ray reveals persistent bilateral multifocal and completed opacities consistent with Covid 19. 10/17: Patient remains on mechanical ventilation with tidal volume 300, FiO2 50, PEEP of 14. She is currently receiving hemodialysis. The patient is having yellow-colored drainage from the trach site. This is going to be culture today. Repeat blood work reveals WBC of 24, hemoglobin 7.3 and platelet count 310. Sodium 136, potassium 4.1, chloride 101, CO2 19, BUN 24 creatinine 1.43. Blood sugar 139. Capillary blood glucose running 147 and 189. Repeat chest x-ray is unchanged. Patient had increased respiratory rate 40s and 50s with oxygen saturation of 87 and now was increased and Seroquel added this morning. Prognosis remains guarded. 10/18: Patient remains on mechanical ventilation with tidal volume 300, FiO2 60, PEEP has been decreased to 12. Patient will need a PEEP of 8 in order to tra nsfer to long-term care. She is currently on fentanyl drip and Precedex drip. Patient is tracking when her name is stated. She seems to be slightly improved today. Patient has been afebrile, heart rate 106, respiratory rate 32, blood pressure 110/61, pulse ox 98%. Repeat blood work reveals WBC 30.3, hemoglobin 7.2, platelet count 350. Sodium 139, potassium 4.2, chloride 103, CO2 20, BUN 23 creatinine 1.79. Blood sugars are increasing running up 299. Patient will be placed on Levemir. Secretions from tracheotomy sent for culture and in process. She is currently undergoing hemodialysis. 10/23: Patient remains in the intensive care unit on mechanical ventilation with tidal volume 300, FiO2 65 and PEEP of 10. pvc monitor has been in a sinus rhythm. Patient does open her eyes and appears to be tracking. Blood sugars have been elevated. Levemir will be increased to 40 units daily and scheduled NovoLog increased to 12 units and continue NovoLog every 6 hours per scale. Patient is receiving hemodialysis today. She is not currently on vasopressors. Patient is on Precedex drip only. Antibiotics in the form of cefepime were started on October 18. Patient has been afebrile, heart rate 126, respiratory rate 36, blood pressure 163/105. Pulse ox 91%. Repeat blood work reveals WBC 16.0, hemoglobin 7.2, platelet count 208. Electrolytes are within normal limits. BUN 62 and creatinine 2.43. Blood sugars running between 259-321. Most recent blood culture from [facility] 20 is no growth at 24 hours. Repeat chest x-ray reveals cardiomegaly and persistent bilateral pulmonary edema. 10/24: Patient is awake, eyes are open and tracking, she is able to follow simple commands. Severe generalized weakness noted. Precedex gtt has been discontinued. Patient is receiving hemodialysis. Her blood sugars have remained elevated for which Levemir increased to 25 units twice daily along with 15 units of NovoLog every 6 hours along with scale. Tidal volume 330, FiO2 60, PEEP of 8. relations manager and social media marketing specialist following closely. Anticipate possible discharge by the end of next week to long-term care facility. 10/25: Patient remains in the intensive care unit on mechanical ventilation. Tidal volume 350, FiO2 60, PEEP 8. She is receiving hemodialysis this morning. Her heart rate remains elevated in the 130s. Pulmonary as started her on Cardizem at 60 mg 3 times daily which has not had any improved effect. We'll start the patient on Lopressor 25 mg twice daily. Patient has been afebrile, heart rate respiratory rate 32, blood pressure 151/91, pulse ox 98%. Patient is been transfuse 1 unit of packed RBCs today. Patient's mental status is improving and patient is able to follow simple commands. WBC 12.2, hemoglobin 6.3, platelet count 196. Sodium 135 otherwise looked lites are normal, BUN 48 creatinine 1.99. Blood sugars are running between 120 and 172. Levemir has been increased to 30 mg twice daily continue 15 units of NovoLog every 6 hours with scale. 10/26: Patient remains in intensive care unit, on mechanical ventilation with tidal volume 375, FiO2 50, PEEP of 8. Patient's heart rate remains elevated 120s and Lopressor increased to 50 mg twice daily. Patient seems to be quite anxious and depressed. We will decrease Seroquel to 50 mg twice daily and start patient on Lexapro. Patient received her first dose of Xanax this morning but this did not seem to help heart rate either. She has been afebrile, heart rate 128, blood pressure 149/79, pulse ox 93%. Repeat hemoglobin 7.3. Sodium 135, potassium 3.9, chloride 90, CO2 30, BUN 45 and creatinine 1.94. Blood sugar are improved running between 117-194. We will make further adjustments to insulin and to increase long-acting to 35 units twice daily and decrease NovoLog scheduled to 7 units and continue NovoLog scale. There are problems with patient's trach and consequently placed with [facility]. General surgery to reevaluate trach. 10/27: Patient is complaining of nausea today. Concerned that this is related to Lexapro. We will further decrease Seroquel to 50 mg at bedtime. Patient is being bladder scanned and last bladder scan wasn't 125 mL. She does not have Haley catheter. No fecal management system. She is having a bowel movement about 3 per day. Plan is for CPAP trial today. She is currently on mechanical ventilation with tidal volume 375, FiO2 50 and PEEP of 8. She has been afebrile, heart rate 105 which is much improved from the last few days. Blood pressure 145/88, pulse ox 94%. There is a new consult in place for Dr. Clemente regarding exchanging the trach and possible debridement at site. WBC 11.4, hemoglobin 8.2, blood count 218. Sodium 136, potassium 4.1, chloride 97, CO2 31, BUN 47 creatinine 1.97. Blood sugars running between 129 and 204. We have changed long acting insulin to 35 units twice daily and continue NovoLog 7 units every 6 hours and scale every 6 hours. Nephrology may be decreasing frequency of dialysis treatments. Anticipate probable discharge to long-term care next week. 10/28: Patient was complaining of nausea today which has resolved. CPAP trial will continue today. She is currently on mechanical ventilation with a tidal volume 375, FiO2 of 50, PEEP of 8. She is afebrile, heart rate 108 which continues to show improvement. Blood pressure 133/87, pulse ox 99%. Patient is able to follow commands. And answers appropriately with nodding her head. WBC 10.5, hemoglobin 8.0, potassium 4.6, BUN 46, creatinine 1.96. Patient is currently receiving hemodialysis. 10/29: Patient was found sitting up in bed. Able to answer some questions appropriately. Utilizing kim. Able to follow commands. Ann over elevated blood sugars. Levemir 35 units twice a day will continue at this with a 7 unit coverage. Patient remains afebrile. Heart rate 102, respirations 29, blood pressure 124/74, pulse ox 97% on mechanical ventilation. Mechanical ventilation settings with a tidal volume 375, FiO2 of 50 and a PEEP of 8. Family has been into see patient. Hemodialysis will be held today. 10/30: Patient remains in the ICU on mechanical ventilation. She is not requiring pressure support. She is on CPAP support. She is receiving hemodialysis this morning with plan to start a Friday schedule this week. Blood sugars are stable and running between 140 and 184. She is on tube feedings at goal and having bowel movements every 12 hours. Repeat blood work reveals WBC 8.9, hemoglobin 10.2, platelet count 258. Sodium 133, potassium 5.0, chloride 97, CO2 23, BUN 69 creatinine 2.67. REVIEW OF SYSTEMS Unable to obtain due to mechanical ventilation. PHYSICAL EXAMINATION Gen: This is is a 35-year-old black female, patient is on mechanical ventilation, appears to be comfortable. HEENT: Head is atraumatic, normocephalic. Pupils equal, round. Sclerae is anicteric. Eyes are open and tracking. Tracheostomy midline with surrounding erythema . NECK: Supple. No JVD. No lymphadenopathy. No thyromegaly. LUNGS: Lung sounds are diminished at the bases but otherwise clear to auscultation. No intercostal retractions. HEART: Regular rate and rhythm. No murmur. pvc monitor sinus tachycardia. ABDOMEN: Soft. Bowel sounds are present. No masses. No tenderness. EXTREMITIES: Trace bilateral pedal edema. No calf tenderness. NEUROLOGICAL: Patient is awake and able to follow simple commands, significant weakness. ASSESSMENT AND PLAN 1. Acute hypoxic respiratory failure secondary to Covid 19 pneumonia and possible bacterial pneumonia. Patient was intubated on September 11. She is status post 1 dose of Remdesivir and 1 dose of Tocilizumab. Continue Ventolin inhaler 4 times daily, Lovenox 30 mg subcu daily, supplements. Status post PEG tube and trach. Continue cefepime. 2. Acute diabetic ketoacidosis secondary to Covid 19 pneumonia, uncontrolled with hyperglycemia. Levemir increased to 35 units twice daily and scheduled NovoLog increased to 7 units every 6 hours and continue NovoLog scale every 6 hours. 3. Metabolic encephalopathy secondary to Covid 19 and DKA. 4. Sepsis and septic shock secondary to Covid 19 pneumonia with multiorgan failure. Continue as in #1. Trach drainage cultured. General surgery to reevaluate trach and wound care consult has been added. 5. Acute metabolic acidosis secondary to acute DKA, Covid 19 and acute kidney injury. Renvela 1600 mg 3 times daily. 6. Diabetes mellitus type 2 uncontrolled with A1c 13.6. Continue as above. 7. Hypophosphatemia status post replacement. 8. Hyperkalemia secondary to DKA, resolved. 9. Sinus tachycardia secondary to sepsis, volume deficiency. Patient is on Cardizem 60 mg 3 times daily, and Lopressor increased to 50 mg twice daily. 10. Acute kidney injury secondary to ATN secondary to Covid 19 and DKA. Continue daily hemodialysis. Permanent dialysis catheter placed. 11. Possible acute gram-negative pneumonia versus MRSA pneumonia. Completed course of antibiotics. 12. Hypertension. 13. Morbid obesity with BMI of 53. 14. Situational depression and anxiety. Seroquel decreased to 50 mgat bedtime, continue Lexapro 10 mg daily and Xanax 0.25 mg twice daily as needed. 15. DVT prophylaxis. Lovenox. 16. GI prophylaxis. Protonix 40 mg IV push daily. 17. Stage IV pressure ulcer to trach site. Currently utilizing absorptive silver dressing. 18. Stage II decubitus ulcer to coccyx. 19. Critical illness polyneuropathy and myopathy. Continue physical therapy. CODE STATUS: Full code Prognosis guarded. DISCHARGE PLAN Shelter Acute Care this week Impression and plan of care have been directed as dictated by the signing physician. Kimberly Boswell nurse practitioner acting as scribe for signing physician. Objective - Vital Signs Vital signs: Vital Signs Temp 98.4 F 10/30/20 08:00 Pulse 109 H 10/30/20 08:00 Resp 32 H 10/30/20 08:00 BP 109/64 10/30/20 08:00 Pulse Ox 97 10/30/20 08:00 Intake & Output 10/29/20 10/30/20 10/30/20 18:59 06:59 18:59 Intake Total 706 762 142 Output Total 0 0 0 Balance 706 762 142 Weight 92.6 kg Intake: IV 110 120 20 0.9 Normal Saline @ KVO 110 120 20 Tube Feeding 506 552 92 Other 90 90 30 Output: Urine 0 0 0 Other: Voiding Method Incontinent ABP, PAP, CO, CI - Last Documented Arterial Blood Pressure 136/76 - Labs CBC & Chem 7: 10/30/20 03:34 10/30/20 03:34 Labs: Abnormal Lab Results - Last 24 Hours (Table) 10/29/20 10/29/20 10/29/20 Range/Units 11:37 18:00 23:48 RBC (3.80-5.40) m/uL Hgb (11.4-16.0) gm/dL Hct (34.0-46.0) % RDW (11.5-15.5) % Sodium (137-145) mmol/L Chloride (98-107) mmol/L BUN (7-17) mg/dL Creatinine (0.52-1.04) mg/dL Glucose (74-99) mg/dL POC Glucose (mg/dL) 159 H 157 H 150 H (75-99) mg/dL AST (14-36) U/L Total Protein (6.3-8.2) g/dL Albumin (3.5-5.0) g/dL 10/30/20 10/30/20 10/30/20 Range/Units 03:34 03:34 06:07 RBC 2.48 L (3.80-5.40) m/uL Hgb 7.2 L (11.4-16.0) gm/dL Hct 21.9 L (34.0-46.0) % RDW 16.9 H (11.5-15.5) % Sodium 133 L (137-145) mmol/L Chloride 97 L (98-107) mmol/L BUN 69 H (7-17) mg/dL Creatinine 2.67 H (0.52-1.04) mg/dL Glucose 149 H (74-99) mg/dL POC Glucose (mg/dL) 184 H (75-99) mg/dL AST 39 H (14-36) U/L Total Protein 5.7 L (6.3-8.2) g/dL Albumin 3.0 L (3.5-5.0) g/dL
--- NOTE | 2020-10-30 13:48 | P.PN ---
<Paloma Chester - Last Filed: 10/30/20 13:44> Subjective Progress Note Date: 10/30/20 CHIEF COMPLAINT: COVID-19 pneumonia HISTORY OF PRESENT ILLNESS: Patient is in the ICU for COVID-19 pneumonia and respiratory failure. She is status post tracheostomy and PEG tube placement with Dr. Zhang. Patient is tolerating tube feedings. Patient's to feedings are at 56 mL per hour. Patient remains on mechanical ventilation. She is off the sedation. Patient is awake and responding to simple commands. Patient has had no further signs of tracheostomy leak. Patient has significant wound at the tracheostomy site and is receiving wound care to the area. Per nursing staff patient has been complaining of epigastric pain. No vomiting reported. She is tolerating her tube feeds and having bowel movements. She also has had blood clots that required resection from her trach. Afebrile. WBC 8.9 he will and 7.2, creatinine 2.67 PHYSICAL EXAM: VITAL SIGNS: Reviewed. GENERAL: Well-developed in no acute distress. HEENT: No sclera icterus. Extraocular movements grossly intact. Moist buccal mucosa. Head is atraumatic, normocephalic. Patient has wound located and skin breakdown at tracheostomy site. The wound is measuring 5.5 x 3 cm. ABDOMEN: Soft. Nondistended. Nontender. PEG tube site clean dry and intact NEUROLOGIC: Awake and opens eyes ASSESSMENT: 1. Acute hypoxic respiratory failure with prolonged mechanical ventilation due to COVID-19 pneumonia status post tracheostomy placement 2. Severe protein calorie malnutrition status post PEG tube placement 3. Pressure wound at tracheostomy site PLAN: -Increase Protonix to 40 mg IV twice a day due to epigastric abdominal pain -Continue tube feedings -Continue supportive care -Continue ICU management -Continue trach care and monitor for tracheostomy leak Physician Nurse Substance Abuse note has been reviewed by physician. Signing provider agrees with the documented findings, assessment, and plan of care. Objective - Vital Signs Vital signs: Vital Signs Temp 98.4 F 10/30/20 08:00 Pulse 101 H 10/30/20 13:00 Resp 34 H 10/30/20 13:00 BP 121/83 10/30/20 13:00 Pulse Ox 96 10/30/20 13:00 Intake & Output 10/29/20 10/30/20 10/30/20 18:59 06:59 18:59 Intake Total 706 762 622 Output Total 0 0 0 Balance 706 762 622 Weight 92.6 kg Intake: IV 110 120 70 0.9 Normal Saline @ KVO 110 120 70 Tube Feeding 506 552 322 Other 90 90 230 Output: Urine 0 0 0 Other: Voiding Method Incontinent ABP, PAP, CO, CI - Last Documented Arterial Blood Pressure 136/76 - Labs CBC & Chem 7: 10/30/20 03:34 10/30/20 03:34 Labs: Abnormal Lab Results - Last 24 Hours (Table) 10/29/20 10/29/20 10/30/20 Range/Units 18:00 23:48 03:34 RBC 2.48 L (3.80-5.40) m/uL Hgb 7.2 L (11.4-16.0) gm/dL Hct 21.9 L (34.0-46.0) % RDW 16.9 H (11.5-15.5) % Sodium (137-145) mmol/L Chloride (98-107) mmol/L BUN (7-17) mg/dL Creatinine (0.52-1.04) mg/dL Glucose (74-99) mg/dL POC Glucose (mg/dL) 157 H 150 H (75-99) mg/dL AST (14-36) U/L Total Protein (6.3-8.2) g/dL Albumin (3.5-5.0) g/dL 10/30/20 10/30/20 10/30/20 Range/Units 03:34 06:07 11:06 RBC (3.80-5.40) m/uL Hgb (11.4-16.0) gm/dL Hct (34.0-46.0) % RDW (11.5-15.5) % Sodium 133 L (137-145) mmol/L Chloride 97 L (98-107) mmol/L BUN 69 H (7-17) mg/dL Creatinine 2.67 H (0.52-1.04) mg/dL Glucose 149 H (74-99) mg/dL POC Glucose (mg/dL) 184 H 148 H (75-99) mg/dL AST 39 H (14-36) U/L Total Protein 5.7 L (6.3-8.2) g/dL Albumin 3.0 L (3.5-5.0) g/dL <Brii Sánchez N - Last Filed: 01/12/21 11:38> Subjective CHIEF COMPLAINT: Ventral dependent respiratory failure HISTORY OF PRESENT ILLNESS: The patient is a 35-year-old female with coronavirus pneumonia, ventilator dependent respiratory failure and tracheostomy and gastrostomy tube placement. She has multiple co-morbidities due to complications from COVID infection. She has new discomfort of the epigastrium including recent blood emanating from trach for suspicion of gastritis. ROS: No new chest pain. Morbidly obese, BMI over 45.0. Mechanical ventilation now on CPAP. Undergoing dialysis. PHYSICAL EXAM: VITAL SIGNS: Reviewed CONSTITUTIONAL: Well developed and in no acute distress. EYES: Conjuctivae without sclera icterus. Extraocular movements grossly intact. HEAD, EARS, NOSE, THROAT: Moist buccal mucosa. Head is atraumatic, normocephalic. NECK: Tracheostomy intact with subcutaneous erosion less than 2 cm RESPIRATORY: Non-labored respirations and equal bilateral excursions. CARDIOVASCULAR: Palpable 2+ radial pulses. ABDOMEN: Gastrostomy tube intact MUSCULOSKELETAL: No gross deformity of the lower extremities noted. No clubbing. No cyanosis. SKIN: Good skin turgor. Well perfused. NEUROLOGIC: Cranial nerves II through XII grossly intact. No focal or lateralizing signs. PSYCH: Following simple commands. CLINICAL LABS: Reviewed. WBC less than 10,000. ASSESSMENT: 1. Coronavirus pneumonia 2. Ventilatory-dependent respiratory failure 3. Status post tracheostomy for prolonged intubation 4. Status post gastrostomy for inadequate protein malnutrition 5. Morbid obesity due to excess calories, BMI 47.5 6. Anemia status post blood transfusion 7. Sepsis 8. Acute renal failure and hemodialysis 9. Poorly controlled diabetes, hyperglycemia 10. Complication from tracheostomy 11. Gastritis PLAN: 1. She has new bleeding with epigastric discomfort for suspicion of gastritis. Recommend proton pump inhibitor for treatment. 2. Awaiting medical stability for transfer to [facility]. Objective - Vital Signs Vital signs: Vital Signs Temp 97.6 F 11/17/20 02:00 Pulse 105 H 11/17/20 02:00 Resp 20 11/17/20 08:40 BP 137/85 11/17/20 02:00 Pulse Ox 92 L 11/17/20 08:18 ABP, PAP, CO, CI - Last Documented Arterial Blood Pressure 136/76 - Labs CBC & Chem 7: 11/17/20 05:35 11/17/20 05:35 Assessment and Plan (1) Respiratory failure requiring intubation Status: Acute Code(s): J96.90 - RESPIRATORY FAILURE, UNSP, UNSP W HYPOXIA OR HYPERCAPNIA SNOMED Code(s): 258364373 (2) Morbid obesity due to excess calories Status: Acute Code(s): E66.01 - MORBID (SEVERE) OBESITY DUE TO EXCESS CALORIES SNOMED Code(s): 008729192 (3) BMI 45.0-49.9, adult Status: Acute Code(s): Z68.42 - BODY MASS INDEX [BMI] 45.0-49.9, ADULT SNOMED Code(s): 838239140 (4) Sepsis Status: Acute Code(s): A41.9 - SEPSIS, UNSPECIFIED ORGANISM SNOMED Code(s): 66317930 (5) Anemia Status: Acute Code(s): D64.9 - ANEMIA, UNSPECIFIED SNOMED Code(s): 121196431 (6) Pneumonia due to COVID-19 virus Status: Acute Code(s): U07.1 - COVID-19; J12.82 - Pneumonia due to coronavirus disease 2019 SNOMED Code(s): 006423920460130806 (7) Inadequate dietary intake of protein Status: Acute Code(s): E63.9 - NUTRITIONAL DEFICIENCY, UNSPECIFIED SNOMED Code(s): 789097218 (8) Acute renal failure Status: Acute Code(s): N17.9 - ACUTE KIDNEY FAILURE, UNSPECIFIED SNOMED Code(s): 06338572 (9) Hyperglycemia Status: Acute Code(s): R73.9 - HYPERGLYCEMIA, UNSPECIFIED SNOMED Code(s): 56006566
[2020-10-30] MEDS: CEFEPIME 1 GM in SODIUM CHLORIDE 0.9% 50 ML IVPB SCH (14:26)
--- NOTE | 2020-10-30 17:05 | PN ---
PROGRESS NOTE Patient is seen for followup for acute kidney injury, currently dialysis dependent. The patient is doing well. Volume status has improved significantly. We will try to decrease her hemodialysis treatments to 3 times a week. PHYSICAL EXAMINATION: On examination today, blood pressure is 107/65, heart rate of 91 per minute. Patient is afebrile. Examination of the heart S1, S2. Examination of the lungs, bilateral breath sounds are heard. Abdomen is soft, nontender. Examination of lower extremities shows no significant edema. SCHOOL BUS DISPATCHER exam shows patient is following commands. She is awake and alert. LAB: Show sodium 133, potassium 5.0, chloride 97, BUN 69, creatinine 2.67, hemoglobin 7.2 g/dL. ASSESSMENT: 1. Acute kidney injury, acute tubular necrosis, currently oliguric and dialysis dependent. We will continue to maintain patient on hemodialysis, however, I will decrease to 3 times a week. 2. Volume overload, significantly improved. 3. Acute hypoxic respiratory failure multifactorial including COVID pneumonia, bacterial pneumonia and ARDS, currently status post trach and PEG. 4. Anemia, multifactorial, currently stable. No active bleeding noted. 5. Metabolic acidosis, now improved. PLAN: Hemodialysis today. We will plan for 3-4 L as tolerated and next treatment will be on 11/01/2020. MMODL / IJN: [id number] /
[2020-10-30 17:38] LABS: Glucose,Whole Blood 162 mg/dL (75-99)
[2020-10-30] MEDS: QUEtiapine 50 MG TAB PO SCH (21:18)
[2020-10-30 23:33] LABS: Glucose,Whole Blood 193 mg/dL (75-99)
[2020-10-31 04:04] LABS: Anisocytosis Slight; Basophils % (A) 0 %; Eosinophils # (A) 0.4 k/uL (0-0.7); Eosinophils % (A) 4 %; HCT 21.6 % (34.0-46.0); Hypochromasia Marked; Lymphocytes # (A) 0.8 k/uL (1.0-4.8); Lymphocytes % (A) 9 %; MCH 28.3 pg (25.0-35.0); MCHC 32.1 g/dL (31.0-37.0); MCV 88.3 fL (80.0-100.0); Mean Platelet Volume 9.2; Monocytes # (A) 0.7 k/uL (0-1.0); Monocytes % (A) 7 %; Neutrophils # (A) 7.3 k/uL (1.3-7.7); Neutrophils % (A) 78 %; Platelet Count 248 k/uL (150-450); Poikilocytosis Slight; RBC 2.45 m/uL (3.80-5.40); WBC 9.3 k/uL (3.8-10.6)
[2020-10-31 04:16] LABS: Calcium 9.6 mg/dL (8.4-10.2); Potassium 4.4 mmol/L (3.5-5.1); Total Bilirubin 0.3 mg/dL (0.2-1.3); Total Protein 5.5 g/dL (6.3-8.2)
[2020-10-31 04:29] LABS: HGB 6.9 gm/dL (11.4-16.0)
[2020-10-31 05:10] LABS: ABG Base Excess 2.8 mmol/L; ABG Glucose Whole Blood 145 mg/dL (75-99); ABG HCO3 28 mmol/L (21-25); ABG Ionized Calcium 5.1 mg/dL (4.5-5.3); ABG Lactic Acid Whole Blood 0.5 mmol/L (0.5-1.6); ABG Oxygen Saturation 95.6 % (94-97); ABG PCO2 47 mmHg (35-45); ABG PH 7.38 (7.35-7.45); ABG PO2 76 mmHg (83-108); ABG Potassium Whole Blood 4.1 mmol/L (3.4-4.5); ABG Sodium Whole Blood 139 mmol/L (135-146); ABG TCO2 30 mmol/L (19-24); Allen Test Performed? Yes
[2020-10-31 05:18] LABS: ABG Hematocrit 21 % (34.0-46.0)
[2020-10-31] MEDS: SEVELAMER 800 MG TAB PO SCH ×4 (06:13→23:40)
[2020-10-31] MEDS: NYSTATIN 100,000 UNIT/ML SUSP 500,000 UNIT/5 ML CUP PO SCH ×4 (06:13→23:40)
[2020-10-31 06:14] LABS: Glucose,Whole Blood 159 mg/dL (75-99)
[2020-10-31] MEDS: INSULIN ASPART (NovoLOG) 100 UNIT/ML VIAL SQ SCH ×8 (06:14→23:39)
[2020-10-31] MEDS: INSULIN DETEMIR (LEVEMIR) 100 UNIT/ML SYR SQ SCH ×2 (06:17→21:07)
--- NOTE | 2020-10-31 07:38 | XR ---
EXAMINATION TYPE: XR chest 1V portable DATE OF EXAM: 10/31/2020 COMPARISON: 10/29/2020 HISTORY: SOB, Follow Up FINDINGS: Indwelling tubes and catheters are unchanged. Scattered airspace infiltrates persist throughout both lung ann. Stable appearance of the cardio-mediastinal structures at this time. Pleural effusion unchanged. IMPRESSION: 1. Stable portable chest. Clinical correlation and follow up until resolution is recommended.
--- NOTE | 2020-10-31 07:40 | P.PN ---
Subjective Progress Note Date: 10/31/20 Principal diagnosis: Acute respiratory failure secondary to Covid 19 pneumonia. Patient was reevaluated today on 10/05/2020, remains in the ICU, intubated, mechanically ventilated, patient is doing worse today compared to the last few days, her chest x-ray is worsening, her O2 requirement is rising and she is back on the percent FiO2, I have also increased her PEEP to 16, assist control rate was increased to 52, FiO2 is on the percent. ABG earlier today on 70% FiO2 showed a pO2 of 56 pCO2 of 50 pH of 7.32. She was on assist control rate of 28 tidal volume of 400 FiO2 70% and PEEP of 14. Patient had to be placed on a higher dose of propofol which was increased to 70 fentanyl is at 2 mcg/kg/m, patient will be placed on Nimbex as I'm having difficulty oxygenating the pat ient in spite of high FiO2. She is scheduled to undergo hemodialysis again today, she had 4 L off yesterday. Remains on tube feeds using vital AF at 30 MLS per hour. Patient is tachycardic rate is 129, blood pressure is marginal 86/45, hence may recommend adding norepinephrine. The overall picture clearly showing deterioration in this patient's clinical status, and I have a feeling that this patient will continue to do poorly and she is now maximized on treatment. Again her chest x-ray is showing significant worsening of her infiltrates. Patient was reevaluated today on 10/06/2020, remains in the ICU, intubated and mechanically ventilated, and she is presently in prone position since last night for the next few hours until dialysis which is supposed to start sometime in the next couple of hours. Patient remains on assist control mode of mechanical ventilation, it is volume control with volume of 350 rate of 3 to FiO2 65%. 14. Her ABG showed a pO2 of 68 pCO2 of 52 pH of 7.28. Patient remains on propofol at 75 fentanyl at 3 mcg/kg/h she is also on norepinephrine at 0.02 and Nimbex at 3 mcg/kg/m. Patient is scheduled to have hemodialysis today. Chest x-ray continues to show evidence of bilateral interstitial infiltrates. Patient is on enteral feeding in the form of Nepro at 30/30. Patient has been proned now for the last 17 hours. Electrolytes are normal however her BUN is 30 creatinine 2.93. Blood sugar is 147 WBC count is 5.1 hemoglobin is 11.4. Patient remains on the COVID-19 cocktail. Remains on albuterol, Symbicort, Decadron 4 mg IV push daily, Lovenox 30 mg subcu daily. Insulin protocol. Her tonic 40 mg IV push daily. Off antibiotics. Patient was reevaluated today on 10/07/2020, remains in the ICU, intubated and mechanically ventilated, presently receiving hemodialysis. She is on assist control rate of 32, tidal volume of 350, FiO2 is up to on the percent today, and PEEP of 14. Higher PEEP did not seem to help much, hence I kept her on a PEEP of 14. ABG today showed a pO2 of 63 pCO2 53 pH of 7.25. A shunt is on Nimbex at 4 mcg/kg/m, fentanyl 3 mcg/kg/h, norepinephrine at 0.07 mcg/kg/m, propofol at 75 mcg/kg/m. Again the patient is receiving hemodialysis, and I have instructed the nurses today to go back into prone position after she is done with dialysis. Chest x-ray continues to show worsening interstitial infiltrates and ARDS pic ture. Labs were all reviewed. Her medications were all reviewed today. Basic metabolic profile is normal BUN is 26 creatinine 2.59. LDH is 955 and C- reactive protein is 22.1. Not much of a change in the last few days. Patient was reevaluated today on 10/08/2020, remains in the ICU, intubated and mechanically ventilated, patient is presently in prone position her ABG this morning showed significant improvement in her oxygenation, however continues to have a combined metabolic and respiratory acidosis. She is now on assist control of 350 rate of 36 FiO2 down to 60% PEEP at 14. ABG on 100% showed a pO2 of 209 pCO2 of 59 pH of 7.15. Her assist control rate was increased to 36. Kept her on the same tidal volume of 350. 2 A of bicarb were given. Patient is also on bicarb drip. Patient remains on propofol at 75 mcg/kg/m, she is on Nimbex at 4 mcg/kg/m, and norepinephrine at 0.01 mcg/kg/m. Patient is also on fentanyl at 3 mcg/kg per hour. During my evaluation, the patient was in prone position, however should be placed back in supine position once dialysis is ready and the patient will be dialyzed again today. Chest x-ray from yesterday continues to show evidence of interstitial edema and ARDS. No chest x-ray has been done yet today because the patient was in prone position. Patient remains on Decadron, remains on Lovenox, she is off antibiotics for now. CBC showed WBC 9.9 hemoglobin is 9.1. Hematocrit is 28.7. Electrodes are normal. BUN is 29 and creatinine 2.44. Bicarb is 20. LDH is up a bit 1026, C-reactive protein is about the same at 19.7. Progress note dated 10/09/2020. This is a 35-year-old black female with history of acute COVID 19 infection, with acute hypoxemic respiratory failure. She was admitted way back on September 10. Because of failure to wean from mechanical ventilation, she underwent tracheostomy and PEG tube placement on September 18. Currently remains on the ventilator. She is on the VC + (PRVC) modality, with a targeted tidal volume 350 and inspiratory time of 0.9 seconds. Her rate is set at 36. FiO2 70%, and PEEP of 14. On those settings, her arterial blood gases show a PaO2 of 72, pCO2 47, and pH 7.23. Currently, the patient's getting daily hemodialysis. Her drips including propofol at 75 mcg/kg/m, Nimbex at 3.5 mcg/kg/m, with [id number] monitoring, fentanyl at 3 g kilogram per hour, norepinephrine at 7 mcg/m, saline at 20 mL an hour, and vital 1.2 at 10 mL an hour, which is goal. White count 5.4, hemoglobin 9.2, hematocrit 28.8, and platelet count 217,000. Sodium 137, potassium 4.2, chlorides 108, CO2 19, anion gap 10, BUN 22, and creatinine 1.64. The patient's chest x-ray is consistent with bilateral infilt rates, and is essentially unchanged, and consistent with a diagnosis of coronavirus pneumonia. Progress note dated 10/10/2020. 35-year-old black female, with a history of COVID 19 infection and acute hypoxemic respiratory failure. She was admitted way back on September 10. Because of failure to wean from mechanical ventilation, she underwent tracheostomy and PEG tube placement on September 18. She remains on the mechanical ventilator. She is on the pressure regulated volume control modality. Her targeted tidal volume is 350 mL, and her inspiratory time 0.9 seconds. The patient's on 70% FiO2, PEEP o f 14, with a rate of 36. The patient is receiving Nimbex at 4.5 mcg/kg/m, propofol at 65 mcg/kg/m, norepinephrine at 3.5 mcg/m, fentanyl at 2.5 mcg/kg/h, and vital AF 1.2 at 10 mL an hour which is goal. The patient's blood gases from this morning show a PaO2 of 79, 5, and a pH is 7.29. Today's chest x-ray is currently still pending. Overnight, there've been no major changes in her condition. White count 7.8, hemoglobin 7.5, hematocrit 23.1, and platelet count 267,000. Sodium 139, potassium 3.9, chlorides 109, CO2 20, anion gap 10, BUN 20, with creatinine 1.29. Progress note dated 10/11/2020. 35-year-old black female with a history of COVID 19 infection and acute hypoxemic respiratory failure. She was admitted back on September 10. Because of failure to wean from mechanical ventilation, she underwent tracheostomy and PEG tube placement on September 18. She remains on the mechanical ventilator to this day. Currently, she is on pressure regulated [place] control, with a targeted tidal volume of 350, inspiratory time of 0.9 seconds, FiO2 70%, PEEP of 14, and a rate of 36. Her blood gases show a PaO2 of 74, pCO2 46, pH 7.28. In an attempt to reduce the FiO2, I was going to go up on the PEEP, but I was reminded that the patient has a issue with high airway pressures, potentially causing airway and alveolar trauma. For that reason, I will switch her to volume assist control modality, with a tidal volume at 325, rate 32, FiO2 70%, and PEEP of 14. This will cause permissive hypercapnic ventilation. I'm okay with this, and I will except a pH of 7.15 or higher. He blood gas will be done in one hour. The patient has daily hemodialysis. We will attempt to prone the patient for 16 hours today. She apparently does well with that modality. Currently, she is on saline at KVO, propofol at 65 mcg/kg/m, fentanyl at 2.5 mcg/kg/h, Nimbex at 3.5 mcg/kg/m, and norepinephrine has been weaned off. She is getting vital AF, at 10 mL an hour, which is goal. Over the last 3 days, since I've been seeing her, there is not been much in the way of progress. White count 9.3, hemoglobin 8.1, hematocrit 26.4, platelet count 276,000. Sodium 136, potassium 4.3, chlorides 103, CO2 20, anion gap 13, BUN and creatinine were 20 and 1.14. Chest x-ray today shows improvement of volume status. Progress note dated 10/12/2020. 35-year-old black female again seen in the intensive care unit, room 265. She has a history of coronavirus pneumonia with acute hypoxemic respiratory failure. She was admitted way back on September 10. She ended up with a tracheostomy and PEG tube placement on September 18 for failure to wean from mechanical ventilation. She remains on the ventilator. She is on volume assist control mode rate of 32, tidal volume 325, FiO2 70%, PEEP of 14. Arterial blood gases show pO2 of 54, pCO2 60, pH is 7.17. She's getting hemodialysis today. Peak airway pressures about 21 cm water. He is getting propofol at 75 mcg/kg/m, fentanyl at 3.5 mcg/kg/h, Nimbex at 7 mcg/kg/m, and saline at KVO. Her tube feeds include vital AF at 10 mL an hour, which is goal. She currently tested negative for coronavirus. She is getting hemodialysis today. Chest x-rays essentially unchanged. White count 10.4, he will May 0.1, hematocrit 25.9, platelet count 273,000. Sodium 133, potassium 4.7, chlorides 100, CO2 19, anion gap 14, BUN and creatinine were 21 and 0.91. This electrolyte profile consistent with an anion gap metabolic acidosis. Saturations currently are 95%. Medications are reviewed. Progress note dated 10/13/2020. 35-year-old black female, seen again in the ICU, room 265. She has a history of coronavirus pneumonia with acute hypoxemic respiratory failure. She was admitted to this hospital on the . She ended up with a tracheostomy and PEG tube being placed on September 18 for failure to wean from mechanical ventilation. She remains on mechanical ventilator. Currently, she is on the volume assist control mode, rate 32, tidal volume 325, FiO2 70%, PEEP of 14. Arterial blood gases show pO2 70, pCO2 of 56, and a pH is 7.26. The patient is currently also on Nimbex at 2.5 mcg/kg/m with train of 4 monitoring, propofol at 50 mcg/kg/m, and fentanyl at 2 mcg/kg/h. The patient's also getting vital AF and 10 mL an hour, which is goal. The patient's airway pressures today are a bit better. Her peak airway pressures are in the low 40s. While she was being prone yesterday, there was a significant cuff leak. Hence, she had be placed in the supine position. White count 14.2, hemoglobin 8.3, hematocrit 26.4, and platelet count 285,000. Sodium 134, potassium 4, chlorides 99, CO2 23, anion gap 12, BUN 21, and creatinine 0.70. Microbiology is all negative. Chest x-ray continues to show diffuse bilateral infiltrates. Progress note dated 10/14/2020. 35-year-old black female seen again in room 265. She has a history of coronavirus pneumonia with acute hypoxemic respiratory failure. She was admitted to the hospital on September 10. She ended up with a tracheostomy and PEG tube being placed on September 18 for failure to wean from mechanical ventilation. Roslyn oconnor remains on the ventilator. Currently, she is on volume assist control mode, rate 32, tidal volume 325, FiO2 70%, and PEEP of 14. She's receiving propofol 60 mcg/kg/m, fentanyl at 3 mcg/kg/h, and Nimbex at 7 mcg/kg/m. The patient is also receiving saline at 20 mL an hour. She's been on and off of norepinephrine area and currently is on hold. She is also receiving vital AF at 10 mL an hour which is goal. Laboratory data from today is not yet available. From October 13, white count 14.2, hemoglobin 8.3, and platelet count was normal. Also, blood gases from yesterday show pO2 70, pCO2 of 56, and pH is 7.26. Electrolytes are essentially within normal range. Chest x-ray from yesterday continues to show bilateral infiltrates, without much change. Progress note dated 10/15/2020. 35-year-old black female, again seen in room 265. She has a history of coronavirus pneumonia, with acute hypoxemic respiratory failure. She was admitted to the hospital back on September 10. She ended up with a tracheostomy and PEG tube being placed on September 18 for failure to wean from mechanical ventilation. She's been in the hospital now for 35 days. Currently remains on the ventilator. She's on the volume assist control mode, rate 32, tidal volume 325, FiO2 70%, EPAP of 18. Blood gases show pO2 of 80, pCO2 61, pH is 7.15. The patient will have hemodialysis today. Yesterday, hemodialysis was done, and 4 L was removed. The patient is currently on propofol at 70 mcg/kg/m, fentanyl at 3 mcg/kg/h, Nimbex at 8 mcg/kg/m, no epinephrine at 6 mg/m, 0.9 at 10 mL an hour, and vital AF at 10 mL an hour which is goal. Unfortunately, she is twitching 4 out of 4 on the Nimbex at the current dose, and we will switch her to rocuronium at 5 mcg/kg/m. We'll titrate accordingly, and monitor the patient with [id number] testing. Current laboratory data includes a white count of 33.9, hemoglobin 8.5, hematocrit 26.4, and platelet count 367,000. Sodium 135, potassium 4.5, chlorides 100, CO2 21, anion gap 14, BUN 19, creatinine 0.96. Microbiologic data is all negative. Progress note dated 10/30/2020. 35-year-old black female, who is now been in the hospital for 50 days. The patient was admitted back on September 10. The patient underwent tracheostomy and PEG tube placement on September 18, for chronic respiratory failure, failure to wean from mechanical ventilation, secondary to severe coronavirus pneumonia and hypoxemia. She remains on mechanical ventilator. She is on the VC plus mode, with a targ eted tidal volume of 375, and inspiratory time of 0.9 seconds. The rate of 32, FiO2 45%, and PEEP of 6. Blood gases were not done today. She remains on saline at 10 mL an hour, and vital AF at 46 mL an hour, which is goal. We will attempt to place her on some pressure support and CPAP. We'll use settings of 15/5. She did very well with that last week. Currently, she remains on cefepime. A white count 8.9, hemoglobin 7.2, hematocrit 21.9, and a normal platelet count. Sodium 133, potassium 5, chlorides 97, CO2 23, anion gap is 13, BUN 69, and creatinine 2.67. One of the discharge issues, as the patient is currently still on daily hemodialysis. No chest x-ray today. Progress note dated 10/31/2020. 35-year-old black female, who is now been in the hospital for 51 days. The patient was admitted back on September 10. She underwent tracheostomy and PEG tube placement on September 18 for chronic respiratory failure with failure to wean from the chemical ventilation, secondary to severe coronavirus pneumonia and hypoxemia. Yesterday, she was on the VC plus mode. Currently, suggested a, she 's been on pressure support of 15, and CPAP of 5. When on VC plus, she has a targeted tidal volume of 375, respiratory rate of 32, inspiratory time of 0.9 seconds, FiO2 45%, and PEEP of 5. Blood gases, done on pressure support, show pO2 of 76, pCO2 47, and pH 7.38. The patient's on saline at 10 mL an hour, and vital AF at 46, which is goal. White count 9.3, hemoglobin 6.9, hematocrit 21.6, platelet count 248,000. Sodium potassium chloride CO2 all normal. Anion gap 7, BUN and creatinine were 38 and 2.04. Today's chest x-ray is stable. Objective - Vital Signs Vital signs: Vital Signs Temp 98.7 F 10/31/20 04:00 Pulse 111 H 10/31/20 07:00 Resp 19 10/31/20 07:00 BP 128/75 10/31/20 07:00 Pulse Ox 98 10/31/20 07:00 Intake & Output 10/30/20 10/31/20 10/31/20 18:59 06:59 18:59 Intake Total 1032 762 56 Output Total 0 0 Balance 1032 762 56 Weight 89.1 kg Intake: IV 170 120 10 0.9 Normal Saline @ KVO 120 120 10 Cefepime 1 gm In Sodium 50 Chloride 0.9% 50 ml @ 12. 5 mls/hr IVPB Q24H [facility] Rx #:[id number] Tube Feeding 552 552 46 Other 310 90 Output: Urine 0 0 ABP, PAP, CO, CI - Last Documented Arterial Blood Pressure 136/76 - Exam No acute distress, currently not sedated and not paralyzed, with a midline tracheostomy tube in place. HEENT examination is grossly unremarkable. Neck supple. Full range of motion. No adenopathy thyromegaly or neck vein distention. Midline tracheostomy tube noted. Cardiovascular examination reveals regular rhythm rate. S1-S2 normal. No S3 or S4. No discernible murmur noted. Heart sounds are distant. Heart rate 111 beats per minute. Lungs reveal diffuse coarse rhonchi and bilateral crackles. No wheezes. Breath sounds equal bilaterally but diminished throughout. Saturations ranged from 94- 98%. Abdomen soft bowel sounds are heard. No masses or tenderness. PEG tube noted. Extremities are intact. No cyanosis clubbing or edema. Skin is without rash or lesion. Neurologic examination is stable. The patient has significant extremity weakness. - Labs CBC & Chem 7: 10/31/20 03:33 10/31/20 03:33 Labs: Abnormal Lab Results - Last 24 Hours (Table) 10/30/20 10/30/20 10/30/20 Range/Units 11:06 17:37 23:30 RBC (3.80-5.40) m/uL Hgb (11.4-16.0) gm/dL Hct (34.0-46.0) % RDW (11.5-15.5) % Lymphocytes # (1.0-4.8) k/uL ABG pCO2 (35-45) mmHg ABG pO2 (83-108) mmHg ABG HCO3 (21-25) mmol/L ABG Total CO2 (19-24) mmol/L ABG Hematocrit (34.0-46.0) % ABG Glucose (75-99) mg/dL Hemoglobin (11.4-16.0) gm/dL BUN (7-17) mg/dL Creatinine (0.52-1.04) mg/dL Glucose (74-99) mg/dL POC Glucose (mg/dL) 148 H 162 H 193 H (75-99) mg/dL AST (14-36) U/L Total Protein (6.3-8.2) g/dL Albumin (3.5-5.0) g/dL Arterial Blood Glucose (75-99) mg/dL Crossmatch 10/31/20 10/31/20 10/31/20 Range/Units 03:33 03:33 04:43 RBC 2.45 L (3.80-5.40) m/uL Hgb 6.9 L* (11.4-16.0) gm/dL Hct 21.6 L (34.0-46.0) % RDW 17.0 H (11.5-15.5) % Lymphocytes # 0.8 L (1.0-4.8) k/uL ABG pCO2 (35-45) mmHg ABG pO2 (83-108) mmHg ABG HCO3 (21-25) mmol/L ABG Total CO2 (19-24) mmol/L ABG Hematocrit (34.0-46.0) % ABG Glucose (75-99) mg/dL Hemoglobin (11.4-16.0) gm/dL BUN 38 H (7-17) mg/dL Creatinine 2.04 H (0.52-1.04) mg/dL Glucose 141 H (74-99) mg/dL POC Glucose (mg/dL) (75-99) mg/dL AST 38 H (14-36) U/L Total Protein 5.5 L (6.3-8.2) g/dL Albumin 3.0 L (3.5-5.0) g/dL Arterial Blood Glucose (75-99) mg/dL Crossmatch See Detail 10/31/20 10/31/20 Range/Units 05:08 06:12 RBC (3.80-5.40) m/uL Hgb (11.4-16.0) gm/dL Hct (34.0-46.0) % RDW (11.5-15.5) % Lymphocytes # (1.0-4.8) k/uL ABG pCO2 47 H (35-45) mmHg ABG pO2 76 L (83-108) mmHg ABG HCO3 28 H (21-25) mmol/L ABG Total CO2 30 H (19-24) mmol/L ABG Hematocrit 21 L (34.0-46.0) % ABG Glucose 145 H (75-99) mg/dL Hemoglobin 6.8 L* (11.4-16.0) gm/dL BUN (7-17) mg/dL Creatinine (0.52-1.04) mg/dL Glucose (74-99) mg/dL POC Glucose (mg/dL) 159 H (75-99) mg/dL AST (14-36) U/L Total Protein (6.3-8.2) g/dL Albumin (3.5-5.0) g/dL Arterial Blood Glucose 145 H (75-99) mg/dL Crossmatch Assessment and Plan Assessment: Acute hypoxemic respiratory failure, secondary to COVID 19 pneumonia, with ARDS, with admission to hospital on September 10, transferred to ICU on the , intubation on September 11, and tracheostomy and PEG tube placement on September 18. Acute respiratory distress syndrome (ARDS). Acute kidney injury, currently on hemodialysis. Failure to wean from mechanical ventilator, likely secondary to critical illness polyneuropathy/myopathy. Acute diabetic ketoacidosis, resolved. Sepsis, secondary to COVID 19 pneumonia. Acinetobacter tracheobronchitis as bronchopneumonia, currently on cefepime. Nonsustained ventricular tachycardia. Anion gap metabolic acidosis. Poorly controlled type 2 diabetes. Elevated inflammatory markers secondary to coronavirus infection. History of essential hypertension. Generalized anxiety disorder. Morbid obesity. Plan: Plan dated 10/09/2020. The patient remains on the pressure regulated volume control mode of ventilation. The patient is being nourished at goal. The patient remains on propofol, Nimbex, and fentanyl. In addition, the patient remains on norepinephrine. Labs, x-rays, and medications are all reviewed. Prognosis is very poor. We will continue to follow. Additional recommendations and suggestions are forthcoming. The patient remains on daily hemodialysis. Plan dated 10/10/2020. The patient remains about the same. She remains on the ventilator. The patient is status post tracheostomy and PEG tube placement. She remains sedated with propofol and fentanyl. She is also chemically paralyzed with Nimbex. She remains on norepinephrine at 8.5 mcg/m for low blood pressure. Cultures are all negative. She remains on periodic hemodialysis. Additional recommendations and suggestions are forthcoming. Diagnosis is guarded. We will continue to follow make recommendations where appropriate. Plan dated 10/11/2020. The patient remains on mechanical ventilator. We will attempt to prone the patient today for 16 hours, to improve oxygenation. In addition, the patient is switched from pressure regulated volume control modality to volume assist control. Settings include tidal volume at 325, rate 32, FiO2 70%, PEEP of 14. A repeat blood gas to be done in an hour. Additional recommendations and suggestions are forthcoming. The patient is currently undergoing daily hemodialysis. Prognosis remains very poor. We will continue to follow make recommendations where appropriate. Plan dated 10/12/2020. The patient remains on mechanical ventilator. We'll see for can wean down the Nimbex. This seems like a high-dose to me. He should be doing [id number] monitoring. The patient is receiving hemodialysis today. Saturations are 95 and 96%. Peak airway pressures 41 cm water. Additional recommendations and suggestions are forthcoming. Prognosis is very guarded. She is getting nutrition at goal. The patient does better in terms of her saturations, when she is in the prone position. Today we will place her in the prone position again. Plan dated 10/13/2020. The patient remains on mechanical ventilator. She did not do well yesterday with prone because of the tracheostomy cuff leak. Her airway pressures are a bit lower today. She remains on Nimbex, propofol, and fentanyl. She is getting nutrition at goal. Today's blood gases are reasonable. She's currently getting daily hemodialysis. We will continue to follow. Additional recommendations and suggestions are forthcoming. We'll attempt to get the paralysis off. No additional recommendations are made at this time. Plan dated 10/14/2020. The patient remains on mechanical ventilator. Essentially, she's been stable on propofol, fentanyl, and Nimbex. She remains on vital AF at goal. She's been on and off norepinephrine through the night. Labs and x-rays from today are still pending. Vent settings has not changed. We will continue to follow make recommendations where appropriate. Overall prognosis remains very guarded. Plan dated 10/15/2020. The patient remains on the ventilator. She remains on propofol, fentanyl, and Nimbex. She's also on norepinephrine at 6 mg/m. We don't seem to be adequately paralyzing this patient. We will switch to a different paralytic. She did have hemodialysis yesterday. 4 L was removed. She'll have hemodialysis today. Once we have her properly paralyzed, the patient will have a repeat blood gas. I may end up increasing her rate up to 36. Overall prognosis remains very poor. Plan dated 10/30/2020. The patient will begin be placed on pressure support of 15 and CPAP of 5. She apparently did well with the settings late last week. The patient is being nourished at goal. A gases were not done. She remains on cefepime for the Acinetobacter. Overall prognosis remains very poor. The patient has profound weakness, and failure to wean from mechanical ventilation, secondary to critical illness polyneuropathy/myopathy. We are attempting to place the patient. Daily hemodialysis is hampering our efforts. Plan dated 10/31/2020. The patient has been on pressure support and CPAP of 15 and 5, since 2:00 yesterday. The patient appears to be doing well, and, it is stable hemodynamically. We are hoping for discharge tomorrow. No additional recommendations are made. She remains on cefepime for Acinetobacter. She has profound weakness, likely secondary to critical illness polyneuropathy/myopathy. Additional recommendations and suggestions are forthcoming. We will continue to follow make recommendations were appropriate. The patient has now been in the hospital for 51 days. Time with Patient: Greater than 30
[2020-10-31] MEDS: ALBUTEROL HFA INHALER INHALATION SCH ×4 (08:38→20:11)
[2020-10-31] MEDS: METOPROLOL TARTRATE 50 MG TAB PO SCH ×2 (08:43→21:06)
[2020-10-31] MEDS: DILTIAZEM ORAL 60 MG TAB PO SCH ×3 (08:43→21:06)
[2020-10-31] MEDS: ENOXAPARIN 30 MG/0.3 ML SYRINGE SQ SCH (08:43)
[2020-10-31] MEDS: PANTOPRAZOLE 40 MG/10 ML VIAL IVP SCH ×2 (08:43→21:06)
[2020-10-31] MEDS: NYSTATIN 100,000 UNIT/GM POWD 15 GM TOPICAL SCH ×3 (08:44→21:07)
[2020-10-31] MEDS: CHLORHEXIDINE GLUCONATE 15 ML CUP MUCOUS MEM SCH ×2 (08:44→21:06)
[2020-10-31] MEDS: ESCITALOPRAM 10 MG TAB PO SCH (08:44)
[2020-10-31] MEDS: CHOLECALCIFEROL 25 MCG (1000 IU) TABLET PO SCH (08:44)
[2020-10-31] MEDS: HYDROPHILIC CREAM 180 GM TUBE TOPICAL SCH (08:44)
[2020-10-31] MEDS: ASCORBIC ACID 500 MG TAB PO SCH ×2 (08:44→21:06)
--- NOTE | 2020-10-31 10:13 | PN ---
PROGRESS NOTE The patient is seen for followup for acute kidney injury, currently hemodialysis dependent. Patient will be now switched to hemodialysis 3 times a week. She tolerated her treatment fairly well yesterday. This morning patient is sleeping, but she is arousable. She has been on CPAP. Blood pressure 112/60, heart rate 110 per minute. She is afebrile. Examination of the heart S1, S2. Examination of the lungs, decreased breath sounds at the bases. Examination of lower extremities shows no significant edema. 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 Left arm appears to be slightly weaker. LABS: Noted. Sodium 137, potassium 4.4, BUN 38, serum creatinine 2.04, hemoglobin 6.9 g/dL. ASSESSMENT: 1. Acute kidney injury, acute tubular necrosis, currently oliguric and hemodialysis dependent. We will arrange for hemodialysis tomorrow. 2. Volume overload significantly improved. 3. Acute hypoxic respiratory failure secondary to bacterial pneumonia as well as Covid pneumonia and ARDS. Currently improving. Status post trach and PEG maintain has been maintained on CPAP trials. 4. Anemia with no active bleeding noted maintained on Aranesp with previous packed RBCs transfusion multiple times during her hospitalization. 5. Metabolic acidosis currently improved. PLAN: Hemodialysis in a.m. MMODL / IJN: [id number] /
[2020-10-31 11:45] LABS: Glucose,Whole Blood 130 mg/dL (75-99)
--- NOTE | 2020-10-31 12:24 | P.PN ---
Subjective Progress Note Date: 10/31/20 HISTORY OF PRESENT ILLNESS 35-year-old female patient of Dr. Arroyo with past medical history of type 2 diabetes comes in with acute shortness of breath associated with high light s ugars. Patient on admission was found to have a fever of 101.5 pulse rate 125 respiratory rate 20. Blood pressure 132/106. On chest x-ray obtained in the ER suggestive of bilateral infiltrates concerning for call with pneumonia. COVID PCR was positive. On admissions patient had an ABG with a pH of 7.14 pCO2 of 20, pO2 of 59, bicarb of 7. Patient's blood sugar on admission was 424 on assessment today patient's blood work patient had a sodium 135 potassium 5.4 chloride 123 bicarb less than 5 and creatinine 0.73. D-dimer was elevated on admission patient 9 28 patient given 1 L of IV fluids followed by normal saline running at 200 mL/h. Patient was positive for acetone on admission. She will anion gap closed and was switched to D5NS. Insulin drip was continued during the night and was switched to patient's home medication this morning. One dose of remdesiver was ordered. Apparently around noon, A- team was called on the patient secondary to hypoxia patient's oxygen saturation dropped to the 70s and 80s on 100% nonrebreather. Patient was switched to BiPAP on 18/12 and is doing better o FiO2 of 80%. ABG was obtained and ph was 7. 14 pCO2 of 28 bicarb of 7 pO2 of 17. Patient noted to have uncompensated metabolic acidosis with compensated respiratory alkalosis. Stat dose of 1 amp bicarb was given and followed by sodium bicarbonate drip. Insulin drip restarted. Patient's initiated on dexamethasone 6 mg IV twice a day. Potassium phosphate ordered as phosphorus is low. Patient's repeat blood gases suggest a pH of 7.25, CO2 32 pO2 of 72 bicarb 14. I will not normal saline at 100 mL/h as patient's anion gap has increased. Patient given 1 dose of 2 mg of morphine with improvement in respiratory rate. One dose of Ativan 0.5 mg was given. Xanax 0.25 twice a day along with Ativan 0.5 IV every 6 hours ordered for the patient. Vitals were evaluated patient pulse 129 [id number]. She was moved to the ICU. Precedex drip was initiated. Lopressor was initiated at 25 twice a day. Metoprolol tartrate 5 mg IV every 6 hours. Systolic blood pressure more than 160. Started chest x-ray was obtained and suggest stable bilateral consolidation suggestive of COVID-19 pneumonia. 09/12 patient is seen in the ICU is currently mechanically ventilated and sedated on vent settings of respiratory rate 36, tidal volume 375 FiO2 80% PEEP of 18.. Vital signs reviewed patient had a temp of 100.4 pulse 150 respiratory rate 36 oxygen saturation 95% on 80% on fio2 .'s labs are reviewed which patient had a d-dimer 1.84 that is increased to 14.3. Arterial Blood gas suggest ph 7.35, CO2 40, po2 62, . Her BMP suggest a sodium 135 potassium 3.7 chloride 112 bicarb 21 creatinine 1.57 for calcitonin is 3.5 CRP is increased from 8.78.2 LDH is increased to 2614. Patient remains on Pneumovax, propofol drip. Lovenox increased to 50 subcu twice a day. Patient received 2 L of IV fluids. Continue IV fluids at 100 mL/h. Bicarb drip discontinued patient initiated on Zosyn 3.375 every 8 hours. Continue insulin drip at 4 units per hour. Patient is currently in prone positioning 09/13: Patient evaluated in the ICU remains on Ventilation continues to be sedated, in prone position. Vent settings are respiratory rate 36, tidal vital 375, FiO2 70% PEEP of 18. ABG shows pO2 of 82, PCO2 of 39, pH is 7.19. Latest labs show WBC 11.1, hemoglobin 13.2, d-dimer still pending, but yesterday was up to 14.3. Creatinine up to 3.4, BUN 24 sodium 137, potassium 4.0. Patient's urine output has been low, nephrology on consult. Bicarb drip increased to 100 miles an hour, receiving another liter of normal saline, she did have a ultrasound that showed unremarkable bilateral kidneys. Repeat chest x-ray showed bilateral lung infiltrates that are stable. Anion gap has closed, will start Lantus 10 units at at bedtime Novolog every 6 hours. 09/14: Patient is seen in the ICU, still currently mechanically ventilated and sedated. She continues in the prone position. Her oxygen quickly drops if she is not in prone. Patient's kidney function has worsened. Laboratory values show creatinine of 4.87, BUN 33, LDH 2191, C-reactive protein 2.7. ABG shows pH 7.32, pO2 of 60, pCO2 43. Patient is making almost no urine overnight. Nephrology is following patient continues on cefepime for urinary tract infection, culture is still pending. Vascular has been consulted for placement of temporary hemodialysis catheter for plans for dialysis. 09/15: Patient evaluated in the ICU, continues to be mechanically ventilated and sedated on assist control ventilation rate of 36, tidal volume 375, FiO2 100% and PEEP of 18. ABG today shows pO2 58, pCO2 of 45, and pH 7.35. She continues on tube feedings. Yesterday patient underwent ultrasound-guided right internal jugular non-tunneled hemodialysis catheter placement. Patient underwent hemodialysis treatment last night and plans have another hemodialysis treatment today. She continues to make almost no urine. She continues on cefepime for antibiotic coverage, and continues on Decadron and Lovenox. 09/16: Patient seen on follow-up remains in the ICU mechanically ventilated and sedated. She continues on assist control rate of 36, tidal volume 375, FiO2 100% and PEEP of 20. PEEP had to be increased due to patient had to be in supine position for dialysis, will go back to prone position once dialysis is complete. ABG shows pH 7.32, pCO2 49, PaO2 61. Laboratory values showed WBC 11.2, hemoglobin 11, sodium 134, creatinine 4.44, BUN 38. Urine culture shows no growth, blood cultures show no growth to date. Repeat chest x-ray shows bilateral pleural effusions, correlate for ARDS, pulmonary edema, diffuse pneumonia, findings are stable from last exam. Patient does not require any pressors, blood pressure 133/57, heart rate 78. 5/16: Patient was evaluated in the ICU today for follow-up. She continues to be intubated and on mechanical ventilation. Current vent settings are tidal volume 375, FiO2 100% and PEEP of 20. ABG shows pH 7.37, pCO2 40, pO2 102. She continues with intermittent prone positioning. Patient continues to have almost no urine output, maintained on dialysis. Patient received dialysis yesterday without complication. Laboratory values revealed WBC 10.3, hemoglobin 10.4, sodium 132, potassium 3.1, BUN 33, creatinine 4.29, LDH 1913, C-reactive protein 1.3. Urine and sputum cultures are negative, blood cultures show no growth to date. Consult placed to dietary to start TPN[ ] 09/18: She remains in the intensive care unit intubated and on mechanical ventilation with tidal volume 375, FiO2 60 and PEEP of 20. Patient is being prone to daily at approximately 16 hours per day. Pulmonary medicine has added in Dr. Zhang to do PEG tube and trach today. Patient is not on vasopressors. Repeat blood work reveals WBC 12.6, hemoglobin 9.8, platelet count 212. Sodium 133, potassium 3.2, chloride 102, CO2 21, BUN 35 and creatinine 4.12. Blood sugar 126. Patient underwent hemodialysis yesterday with removal of 2 L and is scheduled again today with goal of 2-3 L and is scheduled again tomorrow. 09/19: She is scheduled for hemodialysis today and is off fentanyl temporarily. Patient is status post trach and PEG tube yesterday. And she remains on mechanical ventilation. Pulse ox 93-95%. She has been afebrile, heart rate 64, respiratory rate 36, blood pressure 115/50. Fentanyl is off to improve blood pressure for hemodialysis which is scheduled for today. Contacted vascular surgery about permanent hemodialysis catheter. Repeat blood work reveals WBC 14.3, hemoglobin 9.6, platelet count 200. D-dimer 6.48. LDH 1686. C-reactive protein 1.1. BUN 34 creatinine 3.81. Sodium 130, potassium 3.5, chloride 101, CO2 18. Blood sugars running between 101 198. Plan is to wean off Pneumovax today. Patient remains on insulin drip. Repeat chest x-ray reveals bilateral multifocal confluent opacities consistent with COVID-19. Some improved aeratio n periphery of the left lung and worsening opacities throughout the right lung. 09/20: She remains in the intensive care unit on mechanical ventilation. She has been afebrile, heart rate 65, respiratory rate 37, blood pressure 121/70, pulse ox 91-99%. Repeat blood work reveals WBC 14.5, hemoglobin 9.1, platelet count 216. D-dimer 6.13. Sodium 133, potassium 3.1, chloride 102, CO2 18, BUN 35 and creatinine 4.27. Blood sugars running between 128 and 143. LDH 1717. C- reactive protein 1.7. Patient remains on insulin drip which will be transitioned to NovoLog scale every 6 hours. Patient is scheduled for permanent hemodialysis catheter placement today with vascular surgery. Repeat chest x-ray reveals stable diffuse bilateral interstitial and airspace disease. Possible small right effusion. His work is following for transfer to alf care facility. Do not anticipate discharge until next week. 09/21: Patient is undergoing hemodialysis. She remains on mechanical ventilation with tidal volume 375, FiO2 down to 45 and PEEP was decreased to 15. Patient is continued on propofol, fentanyl drips. She is on tube feedings at goal. Patient was taken off insulin drip yesterday and on scale only but blood sugars are running in the 200s, Levemir scheduled at bedtime will be added. Other blood work reveals WBC 13.3, hemoglobin 8.7, platelet count 192. Sodium 137, potassium 3.6, chloride 107, CO2 18, BUN 34 and creatinine 4.21. Repeat chest x-ray is stable. 09/22: She remains in the intensive care on mechanical ventilation with tidal volume 375, FiO2 of 50 and PEEP of 10. Pulse ox is running 96%. She is afebrile, heart rate in the 50s, respiratory rate 36, blood pressure 100/64. Repeat blood work reveals WBC 16.5, hemoglobin 8.9, platelet count 213. Sodium 134, potassium 3.7, chloride 103, CO2 21, BUN 34 and creatinine 3.89. Blood sugars running in the 200s to 324. Levemir increased to 16 units at bedtime and continue NovoLog scale every 6 hours. Patient is on tube feedings at goal. She has a Haley catheter in with a scant amount of dark/brown urine. Fecal management system is in place. Repeat chest x-ray reveals diffuse bilateral airspace infiltrates persist unchanged. Patient is scheduled for hemodialysis tomorrow morning on Friday. 09/23: Patient remains on mechanical ventilation with tidal volume 3.75, FiO2 50 and PEEP of 10. ekg monitor sinus rhythm. She has no urine output. Fecal management system is in place. She is undergoing dialysis at this time with plan for removal of 2-1/2 L. She has been afebrile, heart rate in the 50s, respiratory rate 36, blood pressure 108/76 and pulse ox 89%. WBC 13.6, hemoglobin 9.1, platelet count 194. Sodium 136, potassium 3.0 and was replaced, chloride 106, CO2 21, BUN 49 creatinine 5.31. Blood sugars are running between 182 and this morning 194. Patient was still in the 200s and 300s. Levemir last evening was increased to 16 units. Patient remains on propofol and fentanyl drips. Lovenox was increased to 60 mg twice daily. 09/24: PEEP was increased today to 20, tidal volume is at 375 and FiO2 of 50%. Patient has been afebrile. She has been started on levo fed. Repeat chest x- ray reveals bilateral multifocal confluent opacities consistent with Covid 19 or ARDS redemonstrated. Nephrology will plan dialysis for tomorrow for 3 L. Patient remains on propofol fentanyl and Nimbex. WBC 12.5, hemoglobin 9.8, platelet count 161. D-dimer 13.3. Sodium 132, potassium 3.4, chloride 102, CO2 20, BUN 48 and creatinine 4.67. Blood sugars extremely elevated to 96-409. LDH 2217. 09/25: Patient remains in the intensive care unit on mechanical ventilation with tidal volume 375, FiO2 50 and PEEP of 20. Patient is afebrile, heart rate 61, respiratory rate 36, blood pressure 102/56, pulse ox 97%. Repeat blood work reveals WBC 9.3, hemoglobin 8.5 and platelet count 171. Sodium 130, potassium 3.7, chloride 100, CO2 20, BUN 61 creatinine 5.65. Blood sugars have been elev ated up to 455. Levemir increased to 20 units twice daily, NovoLog 5 units every 6 hours and continue NovoLog scale. Patient is scheduled for hemodialysis today. Repeat chest x-ray reveals bilateral multifocal and confluent opacities. Decadron and Lovenox dosing change by pulmonary. Patient is off norepinephrine. 09/26: Patient remains in the intensive care unit on mechanical ventilation with tidal volume 375, FiO2 50 and PEEP of 15. She has been afebrile, heart rate 91, blood pressure 114/68, pulse ox 99%. ekg monitor sinus rhythm. 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 Sodium 134, potassium 3.6, chloride 102, CO2 22, BUN 41 creatinine 4.21. Patient has improved blood sugars this morning running 150s and 160s. Diabetic medications were adjusted yesterday. Patient is awake and alert and interacting. Yesterday, patient had PICC line inserted by interventional radiology. Repeat chest x-ray reveals diffuse airspace infiltrates in both lung ann appear to progress slightly in the interval. 09/27: Patient remains in intensive care unit on mechanical ventilation with improvement of settings with tidal volume 375, FiO2 decreased to 40 and PEEP decreased to 10. Patient is on hemodialysis every other day and plan to remove 3 L today. Patient is more awake and alert. She is slow to respond but is able to follow simple commands. Blood sugars are running between 84 and 123. Repeat blood work reveals WBC 7.1, hemoglobin 8.1, platelets 152. Sodium 135, potassium 3.6, chloride 103, CO2 21, BUN 53 and creatinine 5.88. Repeat chest x-ray revealed cardiomegaly and pulmonary edema. Patient is on tube feedings:. Patient is not require vasopressors and is off sedation. Fecal management system remains in place for brown liquid stool. C. difficile was negative. 09/28: Patient remains on mechanical ventilation with tidal volume 375, FiO2 increased to 80 and PEEP increased to 18. Patient had a rough night was very anxious, no pain. Xanax 0.25 mg 3 times daily was added. There is concern for pulmonary embolism for which patient was started on heparin drip, she is unable to undergo CAT scan. Venous Doppler bilateral lower extremities was nondiagnostic due to extensive edema in obese patient but minimal imaging of the popliteal veins does show flow. Repeat echocardiogram has been ordered. Cefepime has also been ordered at 1 g IV piggyback every 24 hours as well as vancomycin, pharmacy dosing. Patient is back on fentanyl drip, propofol drip and norepinephrine. Blood sugars are elevated and insulin Levemir will be i ncreased to 25 mg twice daily. Ferrlecit infusion has been ordered by nephrology for 4 days. Patient is undergoing hemodialysis today.temperature max 100.2, heart rate 134, respiratory rate 34, blood pressure 120/65, pulse ox 94%. ekg monitor is sinus tachycardia. Repeat blood work reveals WBC 16.9, hemoglobin 9.7, platelet count 216. D-dimer 8.81. Sodium 134, potassium 3.8, chloride 99, CO2 25, BUN 43 and creatinine 5.36. Blood sugars in the 200s. AST 40. 09/29 Patient had declined more last 48 hours require more sedation, patient is doing hemodialysis, respiratory failure is quite bit worse this time. Patient was inquired the pain is well back on fentanyl drip. Her vent set up with PEEP is limited but higher. No new finding on culture and her chest x-ray continues shows diffuse infiltrate persistent although there is a moderate interval improvement. 09/30 patient's was seen and evaluated. PEEP was reduced to 11 as patient is maintaining good saturation at the current vent settings. 10/01 patient was seen at bedside. She is currently on assist control rate of 28 white tidal volume 350 FiO2 50% and PEEP of 10 which has been reduced by pulmonary as patient name cleaning her oxygen saturation. Arm blood gas was obtained with a pH of 7.35 pCO2 37 pO2 of 63. She remains hemodynamically stable with no need for pressors. Labs were reviewed patient's BUN is 29 crea tinine 3.93 glucose 122 albumin 2.2 sodium 131 chloride 19 hemoglobin is downtrending with a Hb of 7.3 no leukocytosis 7.1. Patient's urine output is minimal at this time. Her rate has increased to 129 and is currently on positive fluid balance even with dialysis. Last dialysis was done yesterday. Continue enteral feeding currently at goal. Antibiotic has been discontinued and continues to remain on DEXA methicillin 4 mg IV daily. 10/02 patient continues to be on trach support with mechanical ventilation. Patient was evaluated by regulatory compliance specialist and was switched to VC control as patient was noted to be double stacking on and off throughout the night. Respiratory rate continue to 28 tidal volume increased to 400 with a PEEP for Dr. Downey. Patient is maintaining oxygen saturation 91% on the current setting. According to the nurse bedside patient saturation drops significantly or she is moved or her sedation is dropped. Patient is currently on propofol drip, fentanyl drip. She did underwent dialysis today and was able to maintain her low pressure without the need of pressors. Labs reviewed today suggest a WBC of 6.7 hemoglobin of 7.0 and d-dimer 3.9 bicarb 17 BUN 38 creatinine 4.8. LDH is 964. Sodium 1:30 likely secondary to volume overload. Urine sodium and urine osmolality ordered. Patient's glucose this morning is 146. Continue to remain on enteral feeding. Urine output is reduced. Fall catheter will be placed today. Continue to remain on dialysis. 10/03: Patient remains on mechanical ventilation and is back on propofol and fentanyl drips. Patient is currently on VC control with tidal volume 400, FiO2 55 and PEEP of 12. Patient still is not making any urine and is dialysis dependent with next treatment planned for tomorrow with removal of 3-3-1/2 L. PEG tube feedings are at goal. Fecal management system remains in place. At the time of evaluation, patient is off levophed. Repeat chest x-ray reveals stable diffuse bilateral airspace disease correlate for ARDS, pulmonary edema or diffuse pneumonia. Temperature max last evening was 101. Temperature currently 99, heart rate 106, respiratory rate 32, blood pressure 101/50, pulse ox 86%. Repeat blood work reveals WBC 6, hemoglobin 7.4, platelet count 160. D-dimer 4.05. Sodium 133, potassium 3.5, chloride 100, CO2 23, BUN 31 creatinine 3.8. Blood sugars are running between 100 and 170. Ferritin 1514. Liver function test normal. LDH 1016, C-reactive protein 13.6. Prognosis remains guarded. 10/04: Patient remains intubated on mechanical ventilation with tidal volume 400, FiO2 65, PEEP of 14. Patient continues to run fevers and repeat blood culture and urine and urine culture ordered for today. Haley catheter has been removed this patient has no significant urine output at about 20 mL per shift. BladderScan is monitored for greater than 300 and the patient is straight cathed. Hemoglobin is 6.8 and she has been ordered 41 unit of packed RBCs today. She is currently on propofol and fentanyl drips. She is scheduled for hemodialysis today. WBC 4.5, hemoglobin 6.8, platelet count 151. D-dimer 3.28. Sodium 132, potassium 4.1, chloride 100, CO2 22, BUN 37 creatinine 4.74. Blood sugars running between 97 and 110. Ferritin 1801. LDH 859. C-reactive protein 14.4. Chest x-ray reveals correlate for pneumonia, edema, ARDS. Prognosis remains guarded. 10/05: Patient remains in intensive care unit currently on mechanical ventilation with tidal volume 400, FiO2 was increased to 100 and PEEP is at 14. She continues to run fevers which have worsened with temperature max 103.1. She has been tachycardic in the 130s, blood pressure is marginal but not on vasopressors. Pulse ox currently 92%. Repeat blood work reveals WBC 5.5, hemoglobin 7.6, platelet count 190. D-dimer 2.7, ferritin 1770, LDH 932, C- reactive protein 21.4. Blood sugars are running between 100 1669. Electrolytes are normal. BUN 27 and creatinine 3.79. Pancultures were done yesterday including a straight cath for urine culture, sputum culture and blood culture. Arterial line was removed as well as midline. She is currently on propofol, fen tanyl and started on Nimbex today. 10/06: Patient remains in the intensive care unit. Today patient in prone position and remains on mechanical ventilation with tidal volume 350, FiO2 65 and PEEP of 14. Her last documented fever was yesterday at 2 PM. Heart rate is in the 120s, respiratory rate 32, pulse ox 88-92%. CBC is unremarkable. Electrolytes are normal. BUN 30 creatinine 2.93. Blood sugars are running between 135 and 164. Cultures from October 04: Blood culture no growth, sputum culture finalized, urine culture finalized. Catheter tip culture is in process. Repeat chest x-ray shows bilateral interstitial infiltrates. Patient is on tube feedings of Nepro at goal of 30 ML's per hour. Patient underwent dialysis yesterday and is scheduled for repeat dialysis today. 10/07: Patient maintains in the intensive care unit intubated and on mechanical ventilation. She is receiving hemodialysis this morning has been every day. Plan is to remove 2-1/2 L today. Vent settings have changed today with tidal volume 350, FiO2 was increased to 100% and PEEP remains at 14. She has been continued on Nimbex, fentanyl, norepinephrine and propofol. Plan is to prone position patient following dialysis. Repeat chest x-ray reveals worsening interstitial infiltrates. BUN is 26 and creatinine 2.59. LDH 955, C-reactive protein 22.1. Prognosis remains poor. 10/08: Patient remains in intensive care unit intubated and on mechanical ventilation with tidal volume 350, FiO2 60, PEEP of 14. She is pronating today. She is scheduled for hemodialysis on a daily basis. She has been afebrile, heart rate 112, respiratory rate 36, blood pressure 161/88, pulse ox 93%. Repeat blood work reveals WBC 9.9, hemoglobin 9.1, platelet count 320. Sodium 133, potassium 5.3, chloride 100, CO2 20, BUN 29 creatinine 2.44. Blood sugar running between 102 and 139. LDH 1026, C-reactive protein 19.7. 10/09: Patient is undergoing dialysis this morning. She continues to be intubated and on mechanical ventilation with tidal volume 350, 270 and PEEP of 14. Patient is also on propofol, Nimbex, norepinephrine and fentanyl drips. Repeat chest x-ray reveals persistent bilateral multifocal and confluent opacities consistent with Covid 19. She is afebrile, heart rate 116, respiratory rate 36, blood pressure 120/65, pulse ox 91%. Repeat blood work reveals WBC 5.4, hemoglobin 9.2, platelet count 216. D-dimer 2.67, ferritin 2568, LDH 794, C- reactive protein 13.9. Blood sugars have been running 90-104. Creatinine 1.64. She is on daily dialysis treatment. 10/10: She remains in the intensive care unit. She is now out of isolation as a repeat Covid test came back negative. She remains on mechanical ventilation with tidal volume 350, FiO2 70 and PEEP of 14. Patient is also on Nimbex, propofol, norepinephrine, fentanyl drips. She is on PEG tube feedings at goal and tolerating well. Repeat blood work reveals WBC 7.8, hemoglobin 7.5, platelet count 267. Sodium 139, potassium 3.9, chloride 109, CO2 20, BUN 20 creatinine 1.29. Blood sugars are running between 76 and 102. Scheduled Aiyana Log decreased to 3 units. Repeat chest x-ray reveals moderate cardiomegaly and continued pulmonary edema. Slight interval improvement. Patient is continued on daily hemodialysis. 10/11: Patient remains in intensive care unit on mechanical ventilation with tidal volume 325, FiO2 70, PEEP 14. She is currently being prone. She underwent hemodialysis this morning with removal of 4 L of fluid with plan to continue daily treatment. She is currently on Nimbex, fentanyl and propofol. No vasopressor at this time. Fecal management system remains in place. She is on tube feedings currently at hold due to prone positioning. Patient has been afebrile, heart rate 116, respiratory rate 36, blood pressure 100/58, pulse ox 93-96%. Repeat blood work reveals WBC 9.3, hemoglobin 8.1, platelet count 276. Sodium 136, potassium 4.3, chloride 103, CO2 20, BUN 20 creatinine 1.14. Blood sugars running between 133 and 202. 10/12: Patient remains in the intensive care unit. She is undergoing hemodialy sis this morning. She's been afebrile, heart rate in the 120s, respiratory rate 32, blood pressure 102/65. She is not on vasopressors. She is continued on Nimbex, fentanyl and propofol. Vent settings are currently tidal volume 325, FiO2 70, PEEP 14. Total platelet count 273. Sodium 133, potassium 4.7, chloride 100, CO2 19, BUN 21 creatinine 0.91. Blood sugars running between 121 and 143. 10/13: Patient remain in the ICU she is on hemodialysis daily, she is still on the vent with a PEEP of 14 and FiO2 of 70. Her oxygenation is marginal pulse rate still high. Patient had scratched cornea was seen in ophthalmology decided to keep doing eyedrops along with eye patch at this point. Prognosis still very bad this point. 10/14: She remains on mechanical ventilation with tidal volume 325, FiO2 70% and PEEP of 14. She did require label fed last evening for about 6 hours. She did not tolerate pronating yesterday. She is undergoing dialysis this morning with plan for removal of 4 L. Blood sugars have been low and IV fluids changed to D10 until blood sugars have recovered. Levemir and scheduled NovoLog discontinued. Patient is on tube feedings at goal there's been no change in th is. 10/15 patient remains on mechanical ventilation in the intensive care unit. FiO2 still at 70%, PEEP of 18. Blood sugars have improved since medications were adjusted. White blood cells 33.9, hemoglobin 8.5, sodium 135, BUN 19, creatinine 0.96. Patient to receive dialysis again today. Patient did run a low-grade fever throughout the night and pro calcitonin level is ordered. Chest x-ray showed continued diffuse bilateral airspace disease. Patient remains on tube feedings at goal. 10/16: Patient remains on mechanical ventilation with tidal volume 300, FiO2 70, PEEP of 15. Fecal management system is out. She is currently on low dose of norepinephrine. She is also on fentanyl drip, propofol drip, rocuronium drip. Heart rate is running in the 130s, sinus rhythm, blood pressure 121/63, pulse ox 95%. Patient is been afebrile. Repeat blood work reveals WBC 18.9, hemoglobin 7.5, platelet count 291. Sodium 135, potassium 4.2, chloride 101, CO2 19, BUN 25 and creatinine 1.36. Blood sugars are running between 143 and 199. Patient is on scale insulin only. Repeat chest x-ray reveals persistent bilateral multifocal and completed opacities consistent with Covid 19. 10/17: Patient remains on mechanical ventilation with tidal volume 300, FiO2 50, PEEP of 14. She is currently receiving hemodialysis. The patient is having yellow-colored drainage from the trach site. This is going to be culture today. Repeat blood work reveals WBC of 24, hemoglobin 7.3 and platelet count 310. Sodium 136, potassium 4.1, chloride 101, CO2 19, BUN 24 creatinine 1.43. Blood sugar 139. Capillary blood glucose running 147 and 189. Repeat chest x-ray is unchanged. Patient had increased respiratory rate 40s and 50s with oxygen saturation of 87 and now was increased and Seroquel added this morning. Prognosis remains guarded. 10/18: Patient remains on mechanical ventilation with tidal volume 300, FiO2 60, PEEP has been decreased to 12. Patient will need a PEEP of 8 in order to tra nsfer to long-term care. She is currently on fentanyl drip and Precedex drip. Patient is tracking when her name is stated. She seems to be slightly improved today. Patient has been afebrile, heart rate 106, respiratory rate 32, blood pressure 110/61, pulse ox 98%. Repeat blood work reveals WBC 30.3, hemoglobin 7.2, platelet count 350. Sodium 139, potassium 4.2, chloride 103, CO2 20, BUN 23 creatinine 1.79. Blood sugars are increasing running up 299. Patient will be placed on Levemir. Secretions from tracheotomy sent for culture and in process. She is currently undergoing hemodialysis. 10/23: Patient remains in the intensive care unit on mechanical ventilation with tidal volume 300, FiO2 65 and PEEP of 10. ekg monitor has been in a sinus rhythm. Patient does open her eyes and appears to be tracking. Blood sugars have been elevated. Levemir will be increased to 40 units daily and scheduled NovoLog increased to 12 units and continue NovoLog every 6 hours per scale. Patient is receiving hemodialysis today. She is not currently on vasopressors. Patient is on Precedex drip only. Antibiotics in the form of cefepime were started on October 18. Patient has been afebrile, heart rate 126, respiratory rate 36, blood pressure 163/105. Pulse ox 91%. Repeat blood work reveals WBC 16.0, hemoglobin 7.2, platelet count 208. Electrolytes are within normal limits. BUN 62 and creatinine 2.43. Blood sugars running between 259-321. Most recent blood culture from [facility] 20 is no growth at 24 hours. Repeat chest x-ray reveals cardiomegaly and persistent bilateral pulmonary edema. 10/24: Patient is awake, eyes are open and tracking, she is able to follow simple commands. Severe generalized weakness noted. Precedex gtt has been discontinued. Patient is receiving hemodialysis. Her blood sugars have remained elevated for which Levemir increased to 25 units twice daily along with 15 units of NovoLog every 6 hours along with scale. Tidal volume 330, FiO2 60, PEEP of 8. manager pmo and social security specialist following closely. Anticipate possible discharge by the end of next week to long-term care facility. 10/25: Patient remains in the intensive care unit on mechanical ventilation. Tidal volume 350, FiO2 60, PEEP 8. She is receiving hemodialysis this morning. Her heart rate remains elevated in the 130s. Pulmonary as started her on Cardizem at 60 mg 3 times daily which has not had any improved effect. We'll start the patient on Lopressor 25 mg twice daily. Patient has been afebrile, heart rate respiratory rate 32, blood pressure 151/91, pulse ox 98%. Patient is been transfuse 1 unit of packed RBCs today. Patient's mental status is improving and patient is able to follow simple commands. WBC 12.2, hemoglobin 6.3, platelet count 196. Sodium 135 otherwise looked lites are normal, BUN 48 creatinine 1.99. Blood sugars are running between 120 and 172. Levemir has been increased to 30 mg twice daily continue 15 units of NovoLog every 6 hours with scale. 10/26: Patient remains in intensive care unit, on mechanical ventilation with tidal volume 375, FiO2 50, PEEP of 8. Patient's heart rate remains elevated 120s and Lopressor increased to 50 mg twice daily. Patient seems to be quite anxious and depressed. We will decrease Seroquel to 50 mg twice daily and start patient on Lexapro. Patient received her first dose of Xanax this morning but this did not seem to help heart rate either. She has been afebrile, heart rate 128, blood pressure 149/79, pulse ox 93%. Repeat hemoglobin 7.3. Sodium 135, potassium 3.9, chloride 90, CO2 30, BUN 45 and creatinine 1.94. Blood sugar are improved running between 117-194. We will make further adjustments to insulin and to increase long-acting to 35 units twice daily and decrease NovoLog scheduled to 7 units and continue NovoLog scale. There are problems with patient's trach and consequently placed with [facility]. General surgery to reevaluate trach. 10/27: Patient is complaining of nausea today. Concerned that this is related to Lexapro. We will further decrease Seroquel to 50 mg at bedtime. Patient is being bladder scanned and last bladder scan wasn't 125 mL. She does not have Haley catheter. No fecal management system. She is having a bowel movement about 3 per day. Plan is for CPAP trial today. She is currently on mechanical ventilation with tidal volume 375, FiO2 50 and PEEP of 8. She has been afebrile, heart rate 105 which is much improved from the last few days. Blood pressure 145/88, pulse ox 94%. There is a new consult in place for Dr. Clemente regarding exchanging the trach and possible debridement at site. WBC 11.4, hemoglobin 8.2, blood count 218. Sodium 136, potassium 4.1, chloride 97, CO2 31, BUN 47 creatinine 1.97. Blood sugars running between 129 and 204. We have changed long acting insulin to 35 units twice daily and continue NovoLog 7 units every 6 hours and scale every 6 hours. Nephrology may be decreasing frequency of dialysis treatments. Anticipate probable discharge to long-term care next week. 10/28: Patient was complaining of nausea today which has resolved. CPAP trial will continue today. She is currently on mechanical ventilation with a tidal volume 375, FiO2 of 50, PEEP of 8. She is afebrile, heart rate 108 which continues to show improvement. Blood pressure 133/87, pulse ox 99%. Patient is able to follow commands. And answers appropriately with nodding her head. WBC 10.5, hemoglobin 8.0, potassium 4.6, BUN 46, creatinine 1.96. Patient is currently receiving hemodialysis. 10/29: Patient was found sitting up in bed. Able to answer some questions appropriately. Utilizing kim. Able to follow commands. Ann over elevated blood sugars. Levemir 35 units twice a day will continue at this with a 7 unit coverage. Patient remains afebrile. Heart rate 102, respirations 29, blood pressure 124/74, pulse ox 97% on mechanical ventilation. Mechanical ventilation settings with a tidal volume 375, FiO2 of 50 and a PEEP of 8. Family has been into see patient. Hemodialysis will be held today. 10/30: Patient remains in the ICU on mechanical ventilation. She is not requiring pressure support. She is on CPAP support. She is receiving hemodialysis this morning with plan to start a Friday schedule this week. Blood sugars are stable and running between 140 and 184. She is on tube feedings at goal and having bowel movements every 12 hours. Repeat blood work reveals WBC 8.9, hemoglobin 10.2, platelet count 258. Sodium 133, potassium 5.0, chloride 97, CO2 23, BUN 69 creatinine 2.67. 10/31: Patient is seen today in intensive care unit. She remains on mechanical ventilation with tidal volume 375, FiO2 45 of PEEP of 5. Patient is found sitting in a chair working with physical therapy. Patient is noted to have left arm weakness without pain and good sensation. She is not receiving dialysis today and will be started on Friday regime. Patient's heart rate is better controlled in the 80s, blood pressure 113/65, pulse ox 99%. Patient is been afebrile. Patient has been on cefepime. Repeat blood work reveals WBC 9.3, hemoglobin 6.9 and patient is transfused 1 unit of packed RBCs today. Platelet count 248. Electrolytes are within normal range, BUN 38 and creatinine 2.04. Her blood glucose running between 130 and 193. AST 38. Social work is working with the daughter regarding discharge planning. REVIEW OF SYSTEMS Constitutional: No fever, no chills, no night sweats. No weight change. Profound weakness, +fatigue no lethargy. Reported daytime sleepiness. EENT: No headache. No loss of vision. No loss of Hearing. No nasal drainage or congestion. No epistaxis. No sore throat. Lungs: No shortness of breath, cough, no sputum production. No wheezing. Cardiovascular: No chest pain, no lower extremity edema. No palpitations. No paroxysmal nocturnal dyspnea. No orthopnea. No lightheadedness or dizziness. No syncopal episodes. Abdominal: No abdominal pain. No nausea, vomiting. No diarrhea. No con stipation. No bloody or tarry stools. loss of appetite- peg tube. Genitourinary: No dysuria, increased frequency, urgency. No urinary retention. Minimal urine production Musculoskeletal: No myalgias. Noted muscle weakness, noted gait dysfunction, no frequent falls. No back pain. No neck pain. Integumentary: Positive wounds, no lesions. No rash or pruritus. No unusual bruising. No change in hair or nails. Neurologic: No aphasia. No facial droop. Noted change in mentation-improved. No head injury. No headache. No paralysis. No paresthesia. Psychiatric: suspected depression. positive anxiety. Endocrine: Noted abnormal blood sugars-stable and monitored. PHYSICAL EXAMINATION Gen: This is is a 35-year-old black female, patient is on mechanical ventilation , and sitting in a recliner working with physical therapy. HEENT: Head is atraumatic, normocephalic. Pupils equal, round. Sclerae is anicteric. Eyes are open and tracking. Tracheostomy midline. NECK: Supple. No JVD. No lymphadenopathy. No thyromegaly. LUNGS: Lung sounds are diminished at the bases but otherwise clear to auscultation. No intercostal retractions. HEART: Regular rate and rhythm. No murmur. ekg monitor sinus tachycardia. ABDOMEN: Soft. Bowel sounds are present. No masses. No tenderness. EXTREMITIES: Trace bilateral pedal edema. No calf tenderness. NEUROLOGICAL: Patient is awake, alert, oriented and able to follow commands, significant weakness. ASSESSMENT AND PLAN 1. Acute hypoxic respiratory failure secondary to Covid 19 pneumonia and possible bacterial pneumonia. Patient was intubated on September 11. She is status post 1 dose of Remdesivir and 1 dose of Tocilizumab. Continue Ventolin inhaler 4 times daily, Lovenox 30 mg subcu daily, supplements. Status post PEG tube and trach. Continue cefepime. 2. Acute diabetic ketoacidosis secondary to Covid 19 pneumonia, uncontrolled with hyperglycemia. Levemir increased to 35 units twice daily and scheduled NovoLog increased to 7 units every 6 hours and continue NovoLog scale every 6 hours. 3. Metabolic encephalopathy secondary to Covid 19 and DKA. 4. Sepsis and septic shock secondary to Covid 19 pneumonia with multiorgan failure. Continue as in #1. Trach drainage cultured. General surgery to reevaluate trach and wound care consult has been added. 5. Acute metabolic acidosis secondary to acute DKA, Covid 19 and acute kidney injury. Renvela 1600 mg 3 times daily. 6. Diabetes mellitus type 2 uncontrolled with A1c 13.6. Continue as above. 7. Hypophosphatemia status post replacement. 8. Hyperkalemia secondary to DKA, resolved. 9. Sinus tachycardia secondary to sepsis, volume deficiency. Patient is on Cardizem 60 mg 3 times daily, and Lopressor increased to 50 mg twice daily. 10. Acute kidney injury secondary to ATN secondary to Covid 19 and DKA. Continue daily hemodialysis. Permanent dialysis catheter placed. 11. Possible acute gram-negative pneumonia versus MRSA pneumonia. Completed course of antibiotics. 12. Hypertension. 13. Morbid obesity with BMI of 53. 14. Situational depression and anxiety. Seroquel decreased to 50 mgat bedtime, continue Lexapro 10 mg daily and Xanax 0.25 mg twice daily as needed. 15. DVT prophylaxis. Lovenox. 16. GI prophylaxis. Protonix 40 mg IV push daily. 17. Stage IV pressure ulcer to trach site. Currently utilizing absorptive silver dressing. 18. Stage II decubitus ulcer to coccyx. 19. Critical illness polyneuropathy and myopathy. Continue physical therapy. 20. Anemia of chronic disease. Transfuse 1 unit of packed RBCs, continue Aranesp 40 g every 7 days. CODE STATUS: Full code Prognosis guarded. DISCHARGE PLAN Billing Supervisor Acute Care tomorrow if arrangements are completed. Impression and plan of care have been directed as dictated by the signing physician. Kimberly Boswell nurse practitioner acting as scribe for signing physician. Objective - Vital Signs Vital signs: Vital Signs Temp 98.5 F 10/31/20 08:00 Pulse 89 10/31/20 11:00 Resp 18 10/31/20 11:00 BP 113/65 10/31/20 11:00 Pulse Ox 99 10/31/20 11:00 Intake & Output 10/30/20 10/31/20 10/31/20 18:59 06:59 18:59 Intake Total 1032 762 400 Output Total 0 0 0 Balance 1032 762 400 Weight 89.1 kg Intake: IV 170 120 50 0.9 Normal Saline @ KVO 120 120 50 Cefepime 1 gm In Sodium 50 Chloride 0.9% 50 ml @ 12. 5 mls/hr IVPB Q24H [facility] Rx #:[id number] Tube Feeding 552 552 230 Other 310 90 120 Output: Urine 0 0 0 ABP, PAP, CO, CI - Last Documented Arterial Blood Pressure 136/76 - Labs CBC & Chem 7: 10/31/20 03:33 10/31/20 03:33 Labs: Abnormal Lab Results - Last 24 Hours (Table) 10/30/20 10/30/20 10/31/20 Range/Units 17:37 23:30 03:33 RBC 2.45 L (3.80-5.40) m/uL Hgb 6.9 L* (11.4-16.0) gm/dL Hct 21.6 L (34.0-46.0) % RDW 17.0 H (11.5-15.5) % Lymphocytes # 0.8 L (1.0-4.8) k/uL ABG pCO2 (35-45) mmHg ABG pO2 (83-108) mmHg ABG HCO3 (21-25) mmol/L ABG Total CO2 (19-24) mmol/L ABG Hematocrit (34.0-46.0) % ABG Glucose (75-99) mg/dL Hemoglobin (11.4-16.0) gm/dL BUN (7-17) mg/dL Creatinine (0.52-1.04) mg/dL Glucose (74-99) mg/dL POC Glucose (mg/dL) 162 H 193 H (75-99) mg/dL AST (14-36) U/L Total Protein (6.3-8.2) g/dL Albumin (3.5-5.0) g/dL Arterial Blood Glucose (75-99) mg/dL Crossmatch 10/31/20 10/31/20 10/31/20 Range/Units 03:33 04:43 05:08 RBC (3.80-5.40) m/uL Hgb (11.4-16.0) gm/dL Hct (34.0-46.0) % RDW (11.5-15.5) % Lymphocytes # (1.0-4.8) k/uL ABG pCO2 47 H (35-45) mmHg ABG pO2 76 L (83-108) mmHg ABG HCO3 28 H (21-25) mmol/L ABG Total CO2 30 H (19-24) mmol/L ABG Hematocrit 21 L (34.0-46.0) % ABG Glucose 145 H (75-99) mg/dL Hemoglobin 6.8 L* (11.4-16.0) gm/dL BUN 38 H (7-17) mg/dL Creatinine 2.04 H (0.52-1.04) mg/dL Glucose 141 H (74-99) mg/dL POC Glucose (mg/dL) (75-99) mg/dL AST 38 H (14-36) U/L Total Protein 5.5 L (6.3-8.2) g/dL Albumin 3.0 L (3.5-5.0) g/dL Arterial Blood Glucose 145 H (75-99) mg/dL Crossmatch See Detail 10/31/20 10/31/20 Range/Units 06:12 11:43 RBC (3.80-5.40) m/uL Hgb (11.4-16.0) gm/dL Hct (34.0-46.0) % RDW (11.5-15.5) % Lymphocytes # (1.0-4.8) k/uL ABG pCO2 (35-45) mmHg ABG pO2 (83-108) mmHg ABG HCO3 (21-25) mmol/L ABG Total CO2 (19-24) mmol/L ABG Hematocrit (34.0-46.0) % ABG Glucose (75-99) mg/dL Hemoglobin (11.4-16.0) gm/dL BUN (7-17) mg/dL Creatinine (0.52-1.04) mg/dL Glucose (74-99) mg/dL POC Glucose (mg/dL) 159 H 130 H (75-99) mg/dL AST (14-36) U/L Total Protein (6.3-8.2) g/dL Albumin (3.5-5.0) g/dL Arterial Blood Glucose (75-99) mg/dL Crossmatch
--- NOTE | 2020-10-31 13:11 | P.PN ---
Subjective Progress Note Date: 10/31/20 CHIEF COMPLAINT: COVID-19 pneumonia HISTORY OF PRESENT ILLNESS: Patient is in the ICU for COVID-19 pneumonia and respiratory failure. She is status post tracheostomy and PEG tube placement with Dr. Zhang. Patient is tolerating tube feedings. Her tube feedings are at goal. Patient remains on mechanical ventilation. She is off the sedation. Patient is awake and responding to simple commands. Patient has had no further signs of tracheostomy leak. Patient has significant wound at the tracheostomy site and is receiving wound care to the area. Patient has no longer been complaining of epigastric pain per nursing staff. Her pro times have been increased yesterday. No vomiting. She is having bowel movements. Afebrile. PHYSICAL EXAM: VITAL SIGNS: Reviewed. GENERAL: Well-developed in no acute distress. HEENT: No sclera icterus. Extraocular movements grossly intact. Moist buccal m ucosa. Head is atraumatic, normocephalic. Patient has wound located and skin breakdown at tracheostomy site. The wound is measuring 5.5 x 3 cm. ABDOMEN: Soft. Nondistended. Nontender. PEG tube site clean dry and intact NEUROLOGIC: Awake and opens eyes ASSESSMENT: 1. Acute hypoxic respiratory failure with prolonged mechanical ventilation due to COVID-19 pneumonia status post tracheostomy placement 2. Severe protein calorie malnutrition status post PEG tube placement 3. Pressure wound at tracheostomy site PLAN: -Continue tube feedings -Continue supportive care -Continue ICU management -Continue trach care and monitor for tracheostomy leak Physician Director Of Culture note has been reviewed by physician. Signing provider agrees with the documented findings, assessment, and plan of care. Objective - Vital Signs Vital signs: Vital Signs Temp 98.5 F 10/31/20 08:00 Pulse 92 10/31/20 12:00 Resp 13 10/31/20 12:00 BP 105/49 10/31/20 12:00 Pulse Ox 99 10/31/20 12:00 Intake & Output 10/30/20 10/31/20 10/31/20 18:59 06:59 18:59 Intake Total 1032 762 456 Output Total 0 0 0 Balance 1032 762 456 Weight 89.1 kg Intake: IV 170 120 60 0.9 Normal Saline @ KVO 120 120 60 Cefepime 1 gm In Sodium 50 Chloride 0.9% 50 ml @ 12. 5 mls/hr IVPB Q24H [facility] Rx #:[id number] Tube Feeding 552 552 276 Other 310 90 120 Output: Urine 0 0 0 ABP, PAP, CO, CI - Last Documented Arterial Blood Pressure 136/76 - Labs CBC & Chem 7: 10/31/20 03:33 10/31/20 03:33 Labs: Abnormal Lab Results - Last 24 Hours (Table) 10/30/20 10/30/20 10/31/20 Range/Units 17:37 23:30 03:33 RBC 2.45 L (3.80-5.40) m/uL Hgb 6.9 L* (11.4-16.0) gm/dL Hct 21.6 L (34.0-46.0) % RDW 17.0 H (11.5-15.5) % Lymphocytes # 0.8 L (1.0-4.8) k/uL ABG pCO2 (35-45) mmHg ABG pO2 (83-108) mmHg ABG HCO3 (21-25) mmol/L ABG Total CO2 (19-24) mmol/L ABG Hematocrit (34.0-46.0) % ABG Glucose (75-99) mg/dL Hemoglobin (11.4-16.0) gm/dL BUN (7-17) mg/dL Creatinine (0.52-1.04) mg/dL Glucose (74-99) mg/dL POC Glucose (mg/dL) 162 H 193 H (75-99) mg/dL AST (14-36) U/L Total Protein (6.3-8.2) g/dL Albumin (3.5-5.0) g/dL Arterial Blood Glucose (75-99) mg/dL Crossmatch 10/31/20 10/31/20 10/31/20 Range/Units 03:33 04:43 05:08 RBC (3.80-5.40) m/uL Hgb (11.4-16.0) gm/dL Hct (34.0-46.0) % RDW (11.5-15.5) % Lymphocytes # (1.0-4.8) k/uL ABG pCO2 47 H (35-45) mmHg ABG pO2 76 L (83-108) mmHg ABG HCO3 28 H (21-25) mmol/L ABG Total CO2 30 H (19-24) mmol/L ABG Hematocrit 21 L (34.0-46.0) % ABG Glucose 145 H (75-99) mg/dL Hemoglobin 6.8 L* (11.4-16.0) gm/dL BUN 38 H (7-17) mg/dL Creatinine 2.04 H (0.52-1.04) mg/dL Glucose 141 H (74-99) mg/dL POC Glucose (mg/dL) (75-99) mg/dL AST 38 H (14-36) U/L Total Protein 5.5 L (6.3-8.2) g/dL Albumin 3.0 L (3.5-5.0) g/dL Arterial Blood Glucose 145 H (75-99) mg/dL Crossmatch See Detail 10/31/20 10/31/20 Range/Units 06:12 11:43 RBC (3.80-5.40) m/uL Hgb (11.4-16.0) gm/dL Hct (34.0-46.0) % RDW (11.5-15.5) % Lymphocytes # (1.0-4.8) k/uL ABG pCO2 (35-45) mmHg ABG pO2 (83-108) mmHg ABG HCO3 (21-25) mmol/L ABG Total CO2 (19-24) mmol/L ABG Hematocrit (34.0-46.0) % ABG Glucose (75-99) mg/dL Hemoglobin (11.4-16.0) gm/dL BUN (7-17) mg/dL Creatinine (0.52-1.04) mg/dL Glucose (74-99) mg/dL POC Glucose (mg/dL) 159 H 130 H (75-99) mg/dL AST (14-36) U/L Total Protein (6.3-8.2) g/dL Albumin (3.5-5.0) g/dL Arterial Blood Glucose (75-99) mg/dL Crossmatch
[2020-10-31] MEDS: CEFEPIME 1 GM in SODIUM CHLORIDE 0.9% 50 ML IVPB SCH (13:46)
[2020-10-31 18:02] LABS: Glucose,Whole Blood 169 mg/dL (75-99)
[2020-10-31] MEDS: QUEtiapine 50 MG TAB PO SCH (21:06)
[2020-10-31] MEDS: HYDROmorphone 0.5 MG/0.5 ML SYRINGE IVP PRN (21:16)
[2020-10-31 23:32] LABS: Glucose,Whole Blood 159 mg/dL (75-99)
[2020-11-01 03:45] LABS: Anisocytosis Slight; Basophils % (A) 0 %; Eosinophils # (A) 0.6 k/uL (0-0.7); Eosinophils % (A) 7 %; HCT 23.6 % (34.0-46.0); HGB 7.5 gm/dL (11.4-16.0); Hypochromasia Moderate; Lymphocytes % (A) 11 %; MCH 28.3 pg (25.0-35.0); MCV 88.5 fL (80.0-100.0); Mean Platelet Volume 8.6; Monocytes # (A) 0.6 k/uL (0-1.0); Monocytes % (A) 7 %; Neutrophils # (A) 6.2 k/uL (1.3-7.7); Neutrophils % (A) 73 %; Platelet Count 278 k/uL (150-450); Poikilocytosis Slight; RBC 2.66 m/uL (3.80-5.40); RDW 16.5 % (11.5-15.5); WBC 8.5 k/uL (3.8-10.6)
[2020-11-01 04:02] LABS: Albumin 3.1 g/dL (3.5-5.0); Calcium 10.3 mg/dL (8.4-10.2); Potassium 4.8 mmol/L (3.5-5.1); Total Bilirubin 0.2 mg/dL (0.2-1.3); Total Protein 5.8 g/dL (6.3-8.2)
[2020-11-01 05:44] LABS: Glucose,Whole Blood 185 mg/dL (75-99)
[2020-11-01] MEDS: INSULIN ASPART (NovoLOG) 100 UNIT/ML VIAL SQ SCH ×6 (05:46→18:26)
[2020-11-01] MEDS: SEVELAMER 800 MG TAB PO SCH ×3 (05:46→18:26)
[2020-11-01] MEDS: NYSTATIN 100,000 UNIT/ML SUSP 500,000 UNIT/5 ML CUP PO SCH ×3 (05:46→18:26)
[2020-11-01] MEDS: INSULIN DETEMIR (LEVEMIR) 100 UNIT/ML SYR SQ SCH ×2 (06:02→21:18)
[2020-11-01] MEDS: HYDROmorphone 0.5 MG/0.5 ML SYRINGE IVP PRN ×3 (06:15→20:17)
[2020-11-01] MEDS: ALBUTEROL HFA INHALER INHALATION SCH ×4 (07:11→20:25)
[2020-11-01] MEDS: ACETAMINOPHEN TAB 325 MG TAB PO PRN (07:46)
[2020-11-01] MEDS: ALPRAZolam 0.25 MG TAB PO PRN (07:46)
--- NOTE | 2020-11-01 09:07 | P.PN ---
Subjective Progress Note Date: 11/01/20 Principal diagnosis: Acute respiratory failure secondary to Covid 19 pneumonia. Patient was reevaluated today on 10/05/2020, remains in the ICU, intubated, mechanically ventilated, patient is doing worse today compared to the last few days, her chest x-ray is worsening, her O2 requirement is rising and she is back on the percent FiO2, I have also increased her PEEP to 16, assist control rate was increased to 52, FiO2 is on the percent. ABG earlier today on 70% FiO2 showed a pO2 of 56 pCO2 of 50 pH of 7.32. She was on assist control rate of 28 tidal volume of 400 FiO2 70% and PEEP of 14. Patient had to be placed on a higher dose of propofol which was increased to 70 fentanyl is at 2 mcg/kg/m, patient will be placed on Nimbex as I'm having difficulty oxygenating the pat ient in spite of high FiO2. She is scheduled to undergo hemodialysis again today, she had 4 L off yesterday. Remains on tube feeds using vital AF at 30 MLS per hour. Patient is tachycardic rate is 129, blood pressure is marginal 86/45, hence may recommend adding norepinephrine. The overall picture clearly showing deterioration in this patient's clinical status, and I have a feeling that this patient will continue to do poorly and she is now maximized on treatment. Again her chest x-ray is showing significant worsening of her infiltrates. Patient was reevaluated today on 10/06/2020, remains in the ICU, intubated and mechanically ventilated, and she is presently in prone position since last night for the next few hours until dialysis which is supposed to start sometime in the next couple of hours. Patient remains on assist control mode of mechanical ventilation, it is volume control with volume of 350 rate of 3 to FiO2 65%. 14. Her ABG showed a pO2 of 68 pCO2 of 52 pH of 7.28. Patient remains on propofol at 75 fentanyl at 3 mcg/kg/h she is also on norepinephrine at 0.02 and Nimbex at 3 mcg/kg/m. Patient is scheduled to have hemodialysis today. Chest x-ray continues to show evidence of bilateral interstitial infiltrates. Patient is on enteral feeding in the form of Nepro at 30/30. Patient has been proned now for the last 17 hours. Electrolytes are normal however her BUN is 30 creatinine 2.93. Blood sugar is 147 WBC count is 5.1 hemoglobin is 11.4. Patient remains on the COVID-19 cocktail. Remains on albuterol, Symbicort, Decadron 4 mg IV push daily, Lovenox 30 mg subcu daily. Insulin protocol. Her tonic 40 mg IV push daily. Off antibiotics. Patient was reevaluated today on 10/07/2020, remains in the ICU, intubated and mechanically ventilated, presently receiving hemodialysis. She is on assist control rate of 32, tidal volume of 350, FiO2 is up to on the percent today, and PEEP of 14. Higher PEEP did not seem to help much, hence I kept her on a PEEP of 14. ABG today showed a pO2 of 63 pCO2 53 pH of 7.25. A shunt is on Nimbex at 4 mcg/kg/m, fentanyl 3 mcg/kg/h, norepinephrine at 0.07 mcg/kg/m, propofol at 75 mcg/kg/m. Again the patient is receiving hemodialysis, and I have instructed the nurses today to go back into prone position after she is done with dialysis. Chest x-ray continues to show worsening interstitial infiltrates and ARDS pic ture. Labs were all reviewed. Her medications were all reviewed today. Basic metabolic profile is normal BUN is 26 creatinine 2.59. LDH is 955 and C- reactive protein is 22.1. Not much of a change in the last few days. Patient was reevaluated today on 10/08/2020, remains in the ICU, intubated and mechanically ventilated, patient is presently in prone position her ABG this morning showed significant improvement in her oxygenation, however continues to have a combined metabolic and respiratory acidosis. She is now on assist control of 350 rate of 36 FiO2 down to 60% PEEP at 14. ABG on 100% showed a pO2 of 209 pCO2 of 59 pH of 7.15. Her assist control rate was increased to 36. Kept her on the same tidal volume of 350. 2 A of bicarb were given. Patient is also on bicarb drip. Patient remains on propofol at 75 mcg/kg/m, she is on Nimbex at 4 mcg/kg/m, and norepinephrine at 0.01 mcg/kg/m. Patient is also on fentanyl at 3 mcg/kg per hour. During my evaluation, the patient was in prone position, however should be placed back in supine position once dialysis is ready and the patient will be dialyzed again today. Chest x-ray from yesterday continues to show evidence of interstitial edema and ARDS. No chest x-ray has been done yet today because the patient was in prone position. Patient remains on Decadron, remains on Lovenox, she is off antibiotics for now. CBC showed WBC 9.9 hemoglobin is 9.1. Hematocrit is 28.7. Electrodes are normal. BUN is 29 and creatinine 2.44. Bicarb is 20. LDH is up a bit 1026, C-reactive protein is about the same at 19.7. Progress note dated 10/09/2020. This is a 35-year-old black female with history of acute COVID 19 infection, with acute hypoxemic respiratory failure. She was admitted way back on September 10. Because of failure to wean from mechanical ventilation, she underwent tracheostomy and PEG tube placement on September 18. Currently remains on the ventilator. She is on the VC + (PRVC) modality, with a targeted tidal volume 350 and inspiratory time of 0.9 seconds. Her rate is set at 36. FiO2 70%, and PEEP of 14. On those settings, her arterial blood gases show a PaO2 of 72, pCO2 47, and pH 7.23. Currently, the patient's getting daily hemodialysis. Her drips including propofol at 75 mcg/kg/m, Nimbex at 3.5 mcg/kg/m, with [id number] monitoring, fentanyl at 3 g kilogram per hour, norepinephrine at 7 mcg/m, saline at 20 mL an hour, and vital 1.2 at 10 mL an hour, which is goal. White count 5.4, hemoglobin 9.2, hematocrit 28.8, and platelet count 217,000. Sodium 137, potassium 4.2, chlorides 108, CO2 19, anion gap 10, BUN 22, and creatinine 1.64. The patient's chest x-ray is consistent with bilateral infilt rates, and is essentially unchanged, and consistent with a diagnosis of coronavirus pneumonia. Progress note dated 10/10/2020. 35-year-old black female, with a history of COVID 19 infection and acute hypoxemic respiratory failure. She was admitted way back on September 10. Because of failure to wean from mechanical ventilation, she underwent tracheostomy and PEG tube placement on September 18. She remains on the mechanical ventilator. She is on the pressure regulated volume control modality. Her targeted tidal volume is 350 mL, and her inspiratory time 0.9 seconds. The patient's on 70% FiO2, PEEP o f 14, with a rate of 36. The patient is receiving Nimbex at 4.5 mcg/kg/m, propofol at 65 mcg/kg/m, norepinephrine at 3.5 mcg/m, fentanyl at 2.5 mcg/kg/h, and vital AF 1.2 at 10 mL an hour which is goal. The patient's blood gases from this morning show a PaO2 of 79, 5, and a pH is 7.29. Today's chest x-ray is currently still pending. Overnight, there've been no major changes in her condition. White count 7.8, hemoglobin 7.5, hematocrit 23.1, and platelet count 267,000. Sodium 139, potassium 3.9, chlorides 109, CO2 20, anion gap 10, BUN 20, with creatinine 1.29. Progress note dated 10/11/2020. 35-year-old black female with a history of COVID 19 infection and acute hypoxemic respiratory failure. She was admitted back on September 10. Because of failure to wean from mechanical ventilation, she underwent tracheostomy and PEG tube placement on September 18. She remains on the mechanical ventilator to this day. Currently, she is on pressure regulated [place] control, with a targeted tidal volume of 350, inspiratory time of 0.9 seconds, FiO2 70%, PEEP of 14, and a rate of 36. Her blood gases show a PaO2 of 74, pCO2 46, pH 7.28. In an attempt to reduce the FiO2, I was going to go up on the PEEP, but I was reminded that the patient has a issue with high airway pressures, potentially causing airway and alveolar trauma. For that reason, I will switch her to volume assist control modality, with a tidal volume at 325, rate 32, FiO2 70%, and PEEP of 14. This will cause permissive hypercapnic ventilation. I'm okay with this, and I will except a pH of 7.15 or higher. He blood gas will be done in one hour. The patient has daily hemodialysis. We will attempt to prone the patient for 16 hours today. She apparently does well with that modality. Currently, she is on saline at KVO, propofol at 65 mcg/kg/m, fentanyl at 2.5 mcg/kg/h, Nimbex at 3.5 mcg/kg/m, and norepinephrine has been weaned off. She is getting vital AF, at 10 mL an hour, which is goal. Over the last 3 days, since I've been seeing her, there is not been much in the way of progress. White count 9.3, hemoglobin 8.1, hematocrit 26.4, platelet count 276,000. Sodium 136, potassium 4.3, chlorides 103, CO2 20, anion gap 13, BUN and creatinine were 20 and 1.14. Chest x-ray today shows improvement of volume status. Progress note dated 10/12/2020. 35-year-old black female again seen in the intensive care unit, room 265. She has a history of coronavirus pneumonia with acute hypoxemic respiratory failure. She was admitted way back on September 10. She ended up with a tracheostomy and PEG tube placement on September 18 for failure to wean from mechanical ventilation. She remains on the ventilator. She is on volume assist control mode rate of 32, tidal volume 325, FiO2 70%, PEEP of 14. Arterial blood gases show pO2 of 54, pCO2 60, pH is 7.17. She's getting hemodialysis today. Peak airway pressures about 21 cm water. He is getting propofol at 75 mcg/kg/m, fentanyl at 3.5 mcg/kg/h, Nimbex at 7 mcg/kg/m, and saline at KVO. Her tube feeds include vital AF at 10 mL an hour, which is goal. She currently tested negative for coronavirus. She is getting hemodialysis today. Chest x-rays essentially unchanged. White count 10.4, he will May 0.1, hematocrit 25.9, platelet count 273,000. Sodium 133, potassium 4.7, chlorides 100, CO2 19, anion gap 14, BUN and creatinine were 21 and 0.91. This electrolyte profile consistent with an anion gap metabolic acidosis. Saturations currently are 95%. Medications are reviewed. Progress note dated 10/13/2020. 35-year-old black female, seen again in the ICU, room 265. She has a history of coronavirus pneumonia with acute hypoxemic respiratory failure. She was admitted to this hospital on the . She ended up with a tracheostomy and PEG tube being placed on September 18 for failure to wean from mechanical ventilation. She remains on mechanical ventilator. Currently, she is on the volume assist control mode, rate 32, tidal volume 325, FiO2 70%, PEEP of 14. Arterial blood gases show pO2 70, pCO2 of 56, and a pH is 7.26. The patient is currently also on Nimbex at 2.5 mcg/kg/m with train of 4 monitoring, propofol at 50 mcg/kg/m, and fentanyl at 2 mcg/kg/h. The patient's also getting vital AF and 10 mL an hour, which is goal. The patient's airway pressures today are a bit better. Her peak airway pressures are in the low 40s. While she was being prone yesterday, there was a significant cuff leak. Hence, she had be placed in the supine position. White count 14.2, hemoglobin 8.3, hematocrit 26.4, and platelet count 285,000. Sodium 134, potassium 4, chlorides 99, CO2 23, anion gap 12, BUN 21, and creatinine 0.70. Microbiology is all negative. Chest x-ray continues to show diffuse bilateral infiltrates. Progress note dated 10/14/2020. 35-year-old black female seen again in room 265. She has a history of coronavirus pneumonia with acute hypoxemic respiratory failure. She was admitted to the hospital on September 10. She ended up with a tracheostomy and PEG tube being placed on September 18 for failure to wean from mechanical ventilation. Roslyn oconnor remains on the ventilator. Currently, she is on volume assist control mode, rate 32, tidal volume 325, FiO2 70%, and PEEP of 14. She's receiving propofol 60 mcg/kg/m, fentanyl at 3 mcg/kg/h, and Nimbex at 7 mcg/kg/m. The patient is also receiving saline at 20 mL an hour. She's been on and off of norepinephrine area and currently is on hold. She is also receiving vital AF at 10 mL an hour which is goal. Laboratory data from today is not yet available. From October 13, white count 14.2, hemoglobin 8.3, and platelet count was normal. Also, blood gases from yesterday show pO2 70, pCO2 of 56, and pH is 7.26. Electrolytes are essentially within normal range. Chest x-ray from yesterday continues to show bilateral infiltrates, without much change. Progress note dated 10/15/2020. 35-year-old black female, again seen in room 265. She has a history of coronavirus pneumonia, with acute hypoxemic respiratory failure. She was admitted to the hospital back on September 10. She ended up with a tracheostomy and PEG tube being placed on September 18 for failure to wean from mechanical ventilation. She's been in the hospital now for 35 days. Currently remains on the ventilator. She's on the volume assist control mode, rate 32, tidal volume 325, FiO2 70%, EPAP of 18. Blood gases show pO2 of 80, pCO2 61, pH is 7.15. The patient will have hemodialysis today. Yesterday, hemodialysis was done, and 4 L was removed. The patient is currently on propofol at 70 mcg/kg/m, fentanyl at 3 mcg/kg/h, Nimbex at 8 mcg/kg/m, no epinephrine at 6 mg/m, 0.9 at 10 mL an hour, and vital AF at 10 mL an hour which is goal. Unfortunately, she is twitching 4 out of 4 on the Nimbex at the current dose, and we will switch her to rocuronium at 5 mcg/kg/m. We'll titrate accordingly, and monitor the patient with [id number] testing. Current laboratory data includes a white count of 33.9, hemoglobin 8.5, hematocrit 26.4, and platelet count 367,000. Sodium 135, potassium 4.5, chlorides 100, CO2 21, anion gap 14, BUN 19, creatinine 0.96. Microbiologic data is all negative. Progress note dated 10/30/2020. 35-year-old black female, who is now been in the hospital for 50 days. The patient was admitted back on September 10. The patient underwent tracheostomy and PEG tube placement on September 18, for chronic respiratory failure, failure to wean from mechanical ventilation, secondary to severe coronavirus pneumonia and hypoxemia. She remains on mechanical ventilator. She is on the VC plus mode, with a targ eted tidal volume of 375, and inspiratory time of 0.9 seconds. The rate of 32, FiO2 45%, and PEEP of 6. Blood gases were not done today. She remains on saline at 10 mL an hour, and vital AF at 46 mL an hour, which is goal. We will attempt to place her on some pressure support and CPAP. We'll use settings of 15/5. She did very well with that last week. Currently, she remains on cefepime. A white count 8.9, hemoglobin 7.2, hematocrit 21.9, and a normal platelet count. Sodium 133, potassium 5, chlorides 97, CO2 23, anion gap is 13, BUN 69, and creatinine 2.67. One of the discharge issues, as the patient is currently still on daily hemodialysis. No chest x-ray today. Progress note dated 10/31/2020. 35-year-old black female, who is now been in the hospital for 51 days. The patient was admitted back on September 10. She underwent tracheostomy and PEG tube placement on September 18 for chronic respiratory failure with failure to wean from the chemical ventilation, secondary to severe coronavirus pneumonia and hypoxemia. Yesterday, she was on the VC plus mode. Currently, suggested a, she 's been on pressure support of 15, and CPAP of 5. When on VC plus, she has a targeted tidal volume of 375, respiratory rate of 32, inspiratory time of 0.9 seconds, FiO2 45%, and PEEP of 5. Blood gases, done on pressure support, show pO2 of 76, pCO2 47, and pH 7.38. The patient's on saline at 10 mL an hour, and vital AF at 46, which is goal. White count 9.3, hemoglobin 6.9, hematocrit 21.6, platelet count 248,000. Sodium potassium chloride CO2 all normal. Anion gap 7, BUN and creatinine were 38 and 2.04. Today's chest x-ray is stable. Progress note dated 11/01/2020. 35-year-old white female, who is been in the hospital for 52 days. She was admitted back on 09/10/2020. She was admitted with a diagnosis of acute hypoxemic respiratory failure secondary to coronavirus pneumonia. She underwent tracheostomy and PEG tube placement on September 18, for failure to wean from mechanical ventilation. Currently, the patient's on pressure support of 15 cm water, and CPAP of 5 cm water. When she is not on these settings, she is on the VC plus modality. No blood gases today. She's getting saline at 10 mL an hour. Getting vital AF at 46 mL now which is goal. She is receiving hemodialysis today. We are hoping, the patient can be transferred to a long-term acute care facility. That still not decided as yet. White count 8.5, hemoglobin 7.5, hematocrit 23.6, and platelet count 278,000. Sodium 136, potassium 4.8, chlorides 100, CO2 27, anion gap 9, BUN 55, creatinine 2.81. Chest x-ray from yesterday shows a stable pattern of diffuse bilateral infiltrates. Objective - Vital Signs Vital signs: Vital Signs Temp 98.2 F 11/01/20 08:00 Pulse 109 H 11/01/20 08:00 Resp 32 H 11/01/20 08:00 BP 132/80 11/01/20 08:00 Pulse Ox 99 11/01/20 08:00 Intake & Output 10/31/20 11/01/20 11/01/20 18:59 06:59 18:59 Intake Total 1032 762 142 Output Total 0 0 0 Balance 1032 762 142 Weight 89.1 kg 87.6 kg Intake: IV 170 120 20 0.9 Normal Saline @ KVO 120 120 20 Cefepime 1 gm In Sodium 50 Chloride 0.9% 50 ml @ 12. 5 mls/hr IVPB Q24H [facility] Rx #:[id number] Intake, IV Titration 50 Amount Cefepime 1 gm In Sodium 50 Chloride 0.9% 50 ml @ 12. 5 mls/hr IVPB Q24H [facility] Rx #:[id number] Tube Feeding 552 552 92 Other 260 90 30 Output: Urine 0 0 0 Other: # Bowel Movements 2 ABP, PAP, CO, CI - Last Documented Arterial Blood Pressure 136/76 - Exam No acute distress, currently not sedated or paralyzed, with a midline tracheostomy tube in place. HEENT examination is grossly unremarkable. Neck supple. Full range of motion. No adenopathy thyromegaly or neck vein distention. Midline tracheostomy tube noted. Cardiovascular examination reveals regular rhythm rate. S1-S2 normal. No S3 or S4. No discernible murmur noted. Heart sounds are distant. Heart rate 105 beats per minute. Lungs reveal diffuse coarse rhonchi and bilateral crackles. No wheezes. Breath sounds equal bilaterally but diminished throughout. Saturations ranged from 96- 99%. Abdomen soft bowel sounds are heard. No masses or tenderness. PEG tube noted. Extremities are intact. No cyanosis clubbing or edema. Skin is without rash or lesion. Neurologic examination is stable. The patient has significant extremity weakness. - Labs CBC & Chem 7: 11/01/20 03:24 11/01/20 03:24 Labs: Abnormal Lab Results - Last 24 Hours (Table) 10/31/20 10/31/20 10/31/20 Range/Units 11:43 18:00 23:31 RBC (3.80-5.40) m/uL Hgb (11.4-16.0) gm/dL Hct (34.0-46.0) % RDW (11.5-15.5) % Sodium (137-145) mmol/L BUN (7-17) mg/dL Creatinine (0.52-1.04) mg/dL Glucose (74-99) mg/dL POC Glucose (mg/dL) 130 H 169 H 159 H (75-99) mg/dL Calcium (8.4-10.2) mg/dL Total Protein (6.3-8.2) g/dL Albumin (3.5-5.0) g/dL 11/01/20 11/01/20 11/01/20 Range/Units 03:24 03:24 05:42 RBC 2.66 L (3.80-5.40) m/uL Hgb 7.5 L (11.4-16.0) gm/dL Hct 23.6 L (34.0-46.0) % RDW 16.5 H (11.5-15.5) % Sodium 136 L (137-145) mmol/L BUN 55 H (7-17) mg/dL Creatinine 2.81 H (0.52-1.04) mg/dL Glucose 162 H (74-99) mg/dL POC Glucose (mg/dL) 185 H (75-99) mg/dL Calcium 10.3 H (8.4-10.2) mg/dL Total Protein 5.8 L (6.3-8.2) g/dL Albumin 3.1 L (3.5-5.0) g/dL Assessment and Plan Assessment: Acute hypoxemic respiratory failure, secondary to COVID 19 pneumonia, with ARDS, with admission to hospital on September 10, transferred to ICU on the , intubation on September 11, and tracheostomy and PEG tube placement on September 18. Acute respiratory distress syndrome (ARDS). Acute kidney injury, currently on hemodialysis. Failure to wean from mechanical ventilator, likely secondary to critical illness polyneuropathy/myopathy. Acute diabetic ketoacidosis, resolved. Sepsis, secondary to COVID 19 pneumonia. Acinetobacter tracheobronchitis as bronchopneumonia, currently on cefepime. Nonsustained ventricular tachycardia. Anion gap metabolic acidosis. Poorly controlled type 2 diabetes. Elevated inflammatory markers secondary to coronavirus infection. History of essential hypertension. Generalized anxiety disorder. Morbid obesity. Plan: Plan dated 10/09/2020. The patient remains on the pressure regulated volume control mode of ventilation. The patient is being nourished at goal. The patient remains on propofol, Nimbex, and fentanyl. In addition, the patient remains on n orepinephrine. Labs, x-rays, and medications are all reviewed. Prognosis is very poor. We will continue to follow. Additional recommendations and suggestions are forthcoming. The patient remains on daily hemodialysis. Plan dated 10/10/2020. The patient remains about the same. She remains on the ventilator. The patient is status post tracheostomy and PEG tube placement. She remains sedated with propofol and fentanyl. She is also chemically paralyzed with Nimbex. She remains on norepinephrine at 8.5 mcg/m for low blood pressure. Cultures are all negative. She remains on periodic hemodialysis. Additional recommendations and suggestions are forthcoming. Diagnosis is guarded. We will continue to follow make recommendations where appropriate. Plan dated 10/11/2020. The patient remains on mechanical ventilator. We will attempt to prone the patient today for 16 hours, to improve oxygenation. In addition, the patient is switched from pressure regulated volume control modality to volume assist control. Settings include tidal volume at 325, rate 32, FiO2 70%, PEEP of 14. A repeat blood gas to be done in an hour. Additional recommendations and suggestions are forthcoming. The patient is currently undergoing daily hemodialysis. Prognosis remains very poor. We will continue to follow make recommendations where appropriate. Plan dated 10/12/2020. The patient remains on mechanical ventilator. We'll see for can wean down the Nimbex. This seems like a high-dose to me. He should be doing [id number] monitoring. The patient is receiving hemodialysis today. Saturations are 95 and 96%. Peak airway pressures 41 cm water. Additional recommendations and suggestions are forthcoming. Prognosis is very guarded. She is getting nutrition at goal. The patient does better in terms of her saturations, when she is in the prone position. Today we will place her in the prone position again. Plan dated 10/13/2020. The patient remains on mechanical ventilator. She did not do well yesterday with prone because of the tracheostomy cuff leak. Her airway pressures are a bit lower today. She remains on Nimbex, propofol, and fentanyl. She is getting nutrition at goal. Today's blood gases are reasonable. She's currently getting daily hemodialysis. We will continue to follow. Additional recommendations and suggestions are forthcoming. We'll attempt to get the paralysis off. No additional recommendations are made at this time. Plan dated 10/14/2020. The patient remains on mechanical ventilator. Essentially, she's been stable on propofol, fentanyl, and Nimbex. She remains on vital AF at goal. She's been on and off norepinephrine through the night. Labs and x-rays from today are still pending. Vent settings has not changed. We will continue to follow make recommendations where appropriate. Overall prognosis remains very guarded. Plan dated 10/15/2020. The patient remains on the ventilator. She remains on propofol, fentanyl, and Nimbex. She's also on norepinephrine at 6 mg/m. We don't seem to be adequately paralyzing this patient. We will switch to a different paralytic. She did have hemodialysis yesterday. 4 L was removed. She'll have hemodialysis today. Once we have her properly paralyzed, the patient will have a repeat blood gas. I may end up increasing her rate up to 36. Overall prognosis remains very poor. Plan dated 10/30/2020. The patient will begin be placed on pressure support of 15 and CPAP of 5. She apparently did well with the settings late last week. The patient is being nourished at goal. A gases were not done. She remains on cefepime for the Acinetobacter. Overall prognosis remains very poor. The patient has profound weakness, and failure to wean from mechanical ventilation, secondary to critical illness polyneuropathy/myopathy. We are attempting to place the patient. Daily hemodialysis is hampering our efforts. Plan dated 10/31/2020. The patient has been on pressure support and CPAP of 15 and 5, since 2:00 yesterday. The patient appears to be doing well, and, it is stable hemodynamically. We are hoping for discharge tomorrow. No additional recommendations are made. She remains on cefepime for Acinetobacter. She has profound weakness, likely secondary to critical illness polyneuropathy/myopathy. Additional recommendations and suggestions are forthcoming. We will continue to follow make recommendations were appropriate. The patient has now been in the hospital for 51 days. Plan dated 11/01/2020. The chest x-ray from yesterday is reviewed. The patient remains on saline at 10 mL an hour, and vital AF at 46 mL an hour, which is goal. No blood gases today. Labs are reviewed. Currently, the patient's on pressure support of 15 cm water, and CPAP of 5 cm water, beginning at 8:00 this morning. Overnight, she was placed back on the ventilator, on the VC plus modality. She is receiving hemodialysis today. We are hoping for a possible discharge to long-term acute care. That has not been decided yet. The patient has been in the hospital for 52 days. We will continue to follow make recommendations where appropriate. Time with Patient: Greater than 30
[2020-11-01 11:21] LABS: Glucose,Whole Blood 114 mg/dL (75-99)
[2020-11-01] MEDS: diphenhydrAMINE 50 MG/ML 1 ML VIAL IVP PRN ×2 (11:22→20:52)
[2020-11-01] MEDS: CHLORHEXIDINE GLUCONATE 15 ML CUP MUCOUS MEM SCH ×2 (11:42→21:19)
[2020-11-01] MEDS: ASCORBIC ACID 500 MG TAB PO SCH ×2 (11:42→21:19)
[2020-11-01] MEDS: CHOLECALCIFEROL 25 MCG (1000 IU) TABLET PO SCH (11:42)
[2020-11-01] MEDS: HYDROPHILIC CREAM 180 GM TUBE TOPICAL SCH (11:43)
[2020-11-01] MEDS: ESCITALOPRAM 10 MG TAB PO SCH (11:43)
[2020-11-01] MEDS: ENOXAPARIN 30 MG/0.3 ML SYRINGE SQ SCH (11:43)
[2020-11-01] MEDS: DILTIAZEM ORAL 60 MG TAB PO SCH ×3 (11:43→21:19)
[2020-11-01] MEDS: METOPROLOL TARTRATE 50 MG TAB PO SCH ×2 (11:43→21:19)
[2020-11-01] MEDS: PANTOPRAZOLE 40 MG/10 ML VIAL IVP SCH ×2 (11:44→21:19)
[2020-11-01] MEDS: NYSTATIN 100,000 UNIT/GM POWD 15 GM TOPICAL SCH ×3 (11:44→20:34)
--- NOTE | 2020-11-01 12:04 | P.PN ---
Subjective Progress Note Date: 11/01/20 HISTORY OF PRESENT ILLNESS 35-year-old female patient of Dr. Arroyo with past medical history of type 2 diabetes comes in with acute shortness of breath associated with high light s ugars. Patient on admission was found to have a fever of 101.5 pulse rate 125 respiratory rate 20. Blood pressure 132/106. On chest x-ray obtained in the ER suggestive of bilateral infiltrates concerning for call with pneumonia. COVID PCR was positive. On admissions patient had an ABG with a pH of 7.14 pCO2 of 20, pO2 of 59, bicarb of 7. Patient's blood sugar on admission was 424 on assessment today patient's blood work patient had a sodium 135 potassium 5.4 chloride 123 bicarb less than 5 and creatinine 0.73. D-dimer was elevated on admission patient 9 28 patient given 1 L of IV fluids followed by normal saline running at 200 mL/h. Patient was positive for acetone on admission. She will anion gap closed and was switched to D5NS. Insulin drip was continued during the night and was switched to patient's home medication this morning. One dose of remdesiver was ordered. Apparently around noon, A- team was called on the patient secondary to hypoxia patient's oxygen saturation dropped to the 70s and 80s on 100% nonrebreather. Patient was switched to BiPAP on 18/12 and is doing better o FiO2 of 80%. ABG was obtained and ph was 7. 14 pCO2 of 28 bicarb of 7 pO2 of 17. Patient noted to have uncompensated metabolic acidosis with compensated respiratory alkalosis. Stat dose of 1 amp bicarb was given and followed by sodium bicarbonate drip. Insulin drip restarted. Patient's initiated on dexamethasone 6 mg IV twice a day. Potassium phosphate ordered as phosphorus is low. Patient's repeat blood gases suggest a pH of 7.25, CO2 32 pO2 of 72 bicarb 14. I will not normal saline at 100 mL/h as patient's anion gap has increased. Patient given 1 dose of 2 mg of morphine with improvement in respiratory rate. One dose of Ativan 0.5 mg was given. Xanax 0.25 twice a day along with Ativan 0.5 IV every 6 hours ordered for the patient. Vitals were evaluated patient pulse 129 [id number]. She was moved to the ICU. Precedex drip was initiated. Lopressor was initiated at 25 twice a day. Metoprolol tartrate 5 mg IV every 6 hours. Systolic blood pressure more than 160. Started chest x-ray was obtained and suggest stable bilateral consolidation suggestive of COVID-19 pneumonia. 09/12 patient is seen in the ICU is currently mechanically ventilated and sedated on vent settings of respiratory rate 36, tidal volume 375 FiO2 80% PEEP of 18.. Vital signs reviewed patient had a temp of 100.4 pulse 150 respiratory rate 36 oxygen saturation 95% on 80% on fio2 .'s labs are reviewed which patient had a d-dimer 1.84 that is increased to 14.3. Arterial Blood gas suggest ph 7.35, CO2 40, po2 62, . Her BMP suggest a sodium 135 potassium 3.7 chloride 112 bicarb 21 creatinine 1.57 for calcitonin is 3.5 CRP is increased from 8.78.2 LDH is increased to 2614. Patient remains on Pneumovax, propofol drip. Lovenox increased to 50 subcu twice a day. Patient received 2 L of IV fluids. Continue IV fluids at 100 mL/h. Bicarb drip discontinued patient initiated on Zosyn 3.375 every 8 hours. Continue insulin drip at 4 units per hour. Patient is currently in prone positioning 09/13: Patient evaluated in the ICU remains on Ventilation continues to be sedated, in prone position. Vent settings are respiratory rate 36, tidal vital 375, FiO2 70% PEEP of 18. ABG shows pO2 of 82, PCO2 of 39, pH is 7.19. Latest labs show WBC 11.1, hemoglobin 13.2, d-dimer still pending, but yesterday was up to 14.3. Creatinine up to 3.4, BUN 24 sodium 137, potassium 4.0. Patient's urine output has been low, nephrology on consult. Bicarb drip increased to 100 miles an hour, receiving another liter of normal saline, she did have a ultrasound that showed unremarkable bilateral kidneys. Repeat chest x-ray showed bilateral lung infiltrates that are stable. Anion gap has closed, will start Lantus 10 units at at bedtime Novolog every 6 hours. 09/14: Patient is seen in the ICU, still currently mechanically ventilated and sedated. She continues in the prone position. Her oxygen quickly drops if she is not in prone. Patient's kidney function has worsened. Laboratory values show creatinine of 4.87, BUN 33, LDH 2191, C-reactive protein 2.7. ABG shows pH 7.32, pO2 of 60, pCO2 43. Patient is making almost no urine overnight. Nephrology is following patient continues on cefepime for urinary tract infection, culture is still pending. Vascular has been consulted for placement of temporary hemodialysis catheter for plans for dialysis. 09/15: Patient evaluated in the ICU, continues to be mechanically ventilated and sedated on assist control ventilation rate of 36, tidal volume 375, FiO2 100% and PEEP of 18. ABG today shows pO2 58, pCO2 of 45, and pH 7.35. She continues on tube feedings. Yesterday patient underwent ultrasound-guided right internal jugular non-tunneled hemodialysis catheter placement. Patient underwent hemodialysis treatment last night and plans have another hemodialysis treatment today. She continues to make almost no urine. She continues on cefepime for antibiotic coverage, and continues on Decadron and Lovenox. 09/16: Patient seen on follow-up remains in the ICU mechanically ventilated and sedated. She continues on assist control rate of 36, tidal volume 375, FiO2 100% and PEEP of 20. PEEP had to be increased due to patient had to be in supine position for dialysis, will go back to prone position once dialysis is complete. ABG shows pH 7.32, pCO2 49, PaO2 61. Laboratory values showed WBC 11.2, hemoglobin 11, sodium 134, creatinine 4.44, BUN 38. Urine culture shows no growth, blood cultures show no growth to date. Repeat chest x-ray shows bilateral pleural effusions, correlate for ARDS, pulmonary edema, diffuse pneumonia, findings are stable from last exam. Patient does not require any pressors, blood pressure 133/57, heart rate 78. 5/16: Patient was evaluated in the ICU today for follow-up. She continues to be intubated and on mechanical ventilation. Current vent settings are tidal volume 375, FiO2 100% and PEEP of 20. ABG shows pH 7.37, pCO2 40, pO2 102. She continues with intermittent prone positioning. Patient continues to have almost no urine output, maintained on dialysis. Patient received dialysis yesterday without complication. Laboratory values revealed WBC 10.3, hemoglobin 10.4, sodium 132, potassium 3.1, BUN 33, creatinine 4.29, LDH 1913, C-reactive protein 1.3. Urine and sputum cultures are negative, blood cultures show no growth to date. Consult placed to dietary to start TPN[ ] 09/18: She remains in the intensive care unit intubated and on mechanical ventilation with tidal volume 375, FiO2 60 and PEEP of 20. Patient is being prone to daily at approximately 16 hours per day. Pulmonary medicine has added in Dr. Zhang to do PEG tube and trach today. Patient is not on vasopressors. Repeat blood work reveals WBC 12.6, hemoglobin 9.8, platelet count 212. Sodium 133, potassium 3.2, chloride 102, CO2 21, BUN 35 and creatinine 4.12. Blood sugar 126. Patient underwent hemodialysis yesterday with removal of 2 L and is scheduled again today with goal of 2-3 L and is scheduled again tomorrow. 09/19: She is scheduled for hemodialysis today and is off fentanyl temporarily. Patient is status post trach and PEG tube yesterday. And she remains on mechanical ventilation. Pulse ox 93-95%. She has been afebrile, heart rate 64, respiratory rate 36, blood pressure 115/50. Fentanyl is off to improve blood pressure for hemodialysis which is scheduled for today. Contacted vascular surgery about permanent hemodialysis catheter. Repeat blood work reveals WBC 14.3, hemoglobin 9.6, platelet count 200. D-dimer 6.48. LDH 1686. C-reactive protein 1.1. BUN 34 creatinine 3.81. Sodium 130, potassium 3.5, chloride 101, CO2 18. Blood sugars running between 101 198. Plan is to wean off Pneumovax today. Patient remains on insulin drip. Repeat chest x-ray reveals bilateral multifocal confluent opacities consistent with COVID-19. Some improved aeratio n periphery of the left lung and worsening opacities throughout the right lung. 09/20: She remains in the intensive care unit on mechanical ventilation. She has been afebrile, heart rate 65, respiratory rate 37, blood pressure 121/70, pulse ox 91-99%. Repeat blood work reveals WBC 14.5, hemoglobin 9.1, platelet count 216. D-dimer 6.13. Sodium 133, potassium 3.1, chloride 102, CO2 18, BUN 35 and creatinine 4.27. Blood sugars running between 128 and 143. LDH 1717. C- reactive protein 1.7. Patient remains on insulin drip which will be transitioned to NovoLog scale every 6 hours. Patient is scheduled for permanent hemodialysis catheter placement today with vascular surgery. Repeat chest x-ray reveals stable diffuse bilateral interstitial and airspace disease. Possible small right effusion. His work is following for transfer [facility]. Do not anticipate discharge until next week. 09/21: Patient is undergoing hemodialysis. She remains on mechanical ventilation with tidal volume 375, FiO2 down to 45 and PEEP was decreased to 15. Patient is continued on propofol, fentanyl drips. She is on tube feedings at goal. Patient was taken off insulin drip yesterday and on scale only but blood sugars are running in the 200s, Levemir scheduled at bedtime will be added. Other blood work reveals WBC 13.3, hemoglobin 8.7, platelet count 192. Sodium 137, potassium 3.6, chloride 107, CO2 18, BUN 34 and creatinine 4.21. Repeat chest x-ray is stable. 09/22: She remains in the intensive care on mechanical ventilation with tidal volume 375, FiO2 of 50 and PEEP of 10. Pulse ox is running 96%. She is afebrile, heart rate in the 50s, respiratory rate 36, blood pressure 100/64. Repeat blood work reveals WBC 16.5, hemoglobin 8.9, platelet count 213. Sodium 134, potassium 3.7, chloride 103, CO2 21, BUN 34 and creatinine 3.89. Blood sugars running in the 200s to 324. Levemir increased to 16 units at bedtime and continue NovoLog scale every 6 hours. Patient is on tube feedings at goal. She has a Haley catheter in with a scant amount of dark/brown urine. Fecal management system is in place. Repeat chest x-ray reveals diffuse bilateral airspace infiltrates persist unchanged. Patient is scheduled for hemodialysis tomorrow morning on Friday. 09/23: Patient remains on mechanical ventilation with tidal volume 3.75, FiO2 50 and PEEP of 10. emergency generator mechanic sinus rhythm. She has no urine output. Fecal management system is in place. She is undergoing dialysis at this time with plan for removal of 2-1/2 L. She has been afebrile, heart rate in the 50s, respiratory rate 36, blood pressure 108/76 and pulse ox 89%. WBC 13.6, hemoglobin 9.1, platelet count 194. Sodium 136, potassium 3.0 and was replaced, chloride 106, CO2 21, BUN 49 creatinine 5.31. Blood sugars are running between 182 and this morning 194. Patient was still in the 200s and 300s. Levemir last evening was increased to 16 units. Patient remains on propofol and fentanyl drips. Lovenox was increased to 60 mg twice daily. 09/24: PEEP was increased today to 20, tidal volume is at 375 and FiO2 of 50%. Patient has been afebrile. She has been started on levo fed. Repeat chest x- ray reveals bilateral multifocal confluent opacities consistent with Covid 19 or ARDS redemonstrated. Nephrology will plan dialysis for tomorrow for 3 L. Patient remains on propofol fentanyl and Nimbex. WBC 12.5, hemoglobin 9.8, platelet count 161. D-dimer 13.3. Sodium 132, potassium 3.4, chloride 102, CO2 20, BUN 48 and creatinine 4.67. Blood sugars extremely elevated to 96-409. LDH 2217. 09/25: Patient remains in the intensive care unit on mechanical ventilation with tidal volume 375, FiO2 50 and PEEP of 20. Patient is afebrile, heart rate 61, respiratory rate 36, blood pressure 102/56, pulse ox 97%. Repeat blood work reveals WBC 9.3, hemoglobin 8.5 and platelet count 171. Sodium 130, potassium 3.7, chloride 100, CO2 20, BUN 61 creatinine 5.65. Blood sugars have been elev ated up to 455. Levemir increased to 20 units twice daily, NovoLog 5 units every 6 hours and continue NovoLog scale. Patient is scheduled for hemodialysis today. Repeat chest x-ray reveals bilateral multifocal and confluent opacities. Decadron and Lovenox dosing change by pulmonary. Patient is off norepinephrine. 09/26: Patient remains in the intensive care unit on mechanical ventilation with tidal volume 375, FiO2 50 and PEEP of 15. She has been afebrile, heart rate 91, blood pressure 114/68, pulse ox 99%. emergency generator mechanic sinus rhythm. 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 Sodium 134, potassium 3.6, chloride 102, CO2 22, BUN 41 creatinine 4.21. Patient has improved blood sugars this morning running 150s and 160s. Diabetic medications were adjusted yesterday. Patient is awake and alert and interacting. Yesterday, patient had PICC line inserted by interventional radiology. Repeat chest x-ray reveals diffuse airspace infiltrates in both lung ann appear to progress slightly in the interval. 09/27: Patient remains in intensive care unit on mechanical ventilation with improvement of settings with tidal volume 375, FiO2 decreased to 40 and PEEP decreased to 10. Patient is on hemodialysis every other day and plan to remove 3 L today. Patient is more awake and alert. She is slow to respond but is able to follow simple commands. Blood sugars are running between 84 and 123. Repeat blood work reveals WBC 7.1, hemoglobin 8.1, platelets 152. Sodium 135, potassium 3.6, chloride 103, CO2 21, BUN 53 and creatinine 5.88. Repeat chest x-ray revealed cardiomegaly and pulmonary edema. Patient is on tube feedings:. Patient is not require vasopressors and is off sedation. Fecal management system remains in place for brown liquid stool. C. difficile was negative. 09/28: Patient remains on mechanical ventilation with tidal volume 375, FiO2 increased to 80 and PEEP increased to 18. Patient had a rough night was very anxious, no pain. Xanax 0.25 mg 3 times daily was added. There is concern for pulmonary embolism for which patient was started on heparin drip, she is unable to undergo CAT scan. Venous Doppler bilateral lower extremities was nondiagnostic due to extensive edema in obese patient but minimal imaging of the popliteal veins does show flow. Repeat echocardiogram has been ordered. Cefepime has also been ordered at 1 g IV piggyback every 24 hours as well as vancomycin, pharmacy dosing. Patient is back on fentanyl drip, propofol drip and norepinephrine. Blood sugars are elevated and insulin Levemir will be i ncreased to 25 mg twice daily. Ferrlecit infusion has been ordered by nephrology for 4 days. Patient is undergoing hemodialysis today.temperature max 100.2, heart rate 134, respiratory rate 34, blood pressure 120/65, pulse ox 94%. emergency generator mechanic is sinus tachycardia. Repeat blood work reveals WBC 16.9, hemoglobin 9.7, platelet count 216. D-dimer 8.81. Sodium 134, potassium 3.8, chloride 99, CO2 25, BUN 43 and creatinine 5.36. Blood sugars in the 200s. AST 40. 09/29 Patient had declined more last 48 hours require more sedation, patient is doing hemodialysis, respiratory failure is quite bit worse this time. Patient was inquired the pain is well back on fentanyl drip. Her vent set up with PEEP is limited but higher. No new finding on culture and her chest x-ray continues shows diffuse infiltrate persistent although there is a moderate interval improvement. 09/30 patient's was seen and evaluated. PEEP was reduced to 11 as patient is maintaining good saturation at the current vent settings. 10/01 patient was seen at bedside. She is currently on assist control rate of 28 white tidal volume 350 FiO2 50% and PEEP of 10 which has been reduced by pulmonary as patient name cleaning her oxygen saturation. Arm blood gas was obtained with a pH of 7.35 pCO2 37 pO2 of 63. She remains hemodynamically stable with no need for pressors. Labs were reviewed patient's BUN is 29 crea tinine 3.93 glucose 122 albumin 2.2 sodium 131 chloride 19 hemoglobin is downtrending with a Hb of 7.3 no leukocytosis 7.1. Patient's urine output is minimal at this time. Her rate has increased to 129 and is currently on positive fluid balance even with dialysis. Last dialysis was done yesterday. Continue enteral feeding currently at goal. Antibiotic has been discontinued and continues to remain on DEXA methicillin 4 mg IV daily. 10/02 patient continues to be on trach support with mechanical ventilation. Patient was evaluated by regional sales engineer and was switched to VC control as patient was noted to be double stacking on and off throughout the night. Respiratory rate continue to 28 tidal volume increased to 400 with a PEEP for Dr. Downey. Patient is maintaining oxygen saturation 91% on the current setting. According to the nurse bedside patient saturation drops significantly or she is moved or her sedation is dropped. Patient is currently on propofol drip, fentanyl drip. She did underwent dialysis today and was able to maintain her low pressure without the need of pressors. Labs reviewed today suggest a WBC of 6.7 hemoglobin of 7.0 and d-dimer 3.9 bicarb 17 BUN 38 creatinine 4.8. LDH is 964. Sodium 1:30 likely secondary to volume overload. Urine sodium and urine osmolality ordered. Patient's glucose this morning is 146. Continue to remain on enteral feeding. Urine output is reduced. Fall catheter will be placed today. Continue to remain on dialysis. 10/03: Patient remains on mechanical ventilation and is back on propofol and fentanyl drips. Patient is currently on VC control with tidal volume 400, FiO2 55 and PEEP of 12. Patient still is not making any urine and is dialysis dependent with next treatment planned for tomorrow with removal of 3-3-1/2 L. PEG tube feedings are at goal. Fecal management system remains in place. At the time of evaluation, patient is off levophed. Repeat chest x-ray reveals stable diffuse bilateral airspace disease correlate for ARDS, pulmonary edema or diffuse pneumonia. Temperature max last evening was 101. Temperature currently 99, heart rate 106, respiratory rate 32, blood pressure 101/50, pulse ox 86%. Repeat blood work reveals WBC 6, hemoglobin 7.4, platelet count 160. D-dimer 4.05. Sodium 133, potassium 3.5, chloride 100, CO2 23, BUN 31 creatinine 3.8. Blood sugars are running between 100 and 170. Ferritin 1514. Liver function test normal. LDH 1016, C-reactive protein 13.6. Prognosis remains guarded. 10/04: Patient remains intubated on mechanical ventilation with tidal volume 400, FiO2 65, PEEP of 14. Patient continues to run fevers and repeat blood culture and urine and urine culture ordered for today. Haley catheter has been removed this patient has no significant urine output at about 20 mL per shift. BladderScan is monitored for greater than 300 and the patient is straight cathed. Hemoglobin is 6.8 and she has been ordered 41 unit of packed RBCs today. She is currently on propofol and fentanyl drips. She is scheduled for hemodialysis today. WBC 4.5, hemoglobin 6.8, platelet count 151. D-dimer 3.28. Sodium 132, potassium 4.1, chloride 100, CO2 22, BUN 37 creatinine 4.74. Blood sugars running between 97 and 110. Ferritin 1801. LDH 859. C-reactive protein 14.4. Chest x-ray reveals correlate for pneumonia, edema, ARDS. Prognosis remains guarded. 10/05: Patient remains in intensive care unit currently on mechanical ventilation with tidal volume 400, FiO2 was increased to 100 and PEEP is at 14. She continues to run fevers which have worsened with temperature max 103.1. She has been tachycardic in the 130s, blood pressure is marginal but not on vasopressors. Pulse ox currently 92%. Repeat blood work reveals WBC 5.5, hemoglobin 7.6, platelet count 190. D-dimer 2.7, ferritin 1770, LDH 932, C- reactive protein 21.4. Blood sugars are running between 100 1669. Electrolytes are normal. BUN 27 and creatinine 3.79. Pancultures were done yesterday including a straight cath for urine culture, sputum culture and blood culture. Arterial line was removed as well as midline. She is currently on propofol, fen tanyl and started on Nimbex today. 10/06: Patient remains in the intensive care unit. Today patient in prone position and remains on mechanical ventilation with tidal volume 350, FiO2 65 and PEEP of 14. Her last documented fever was yesterday at 2 PM. Heart rate is in the 120s, respiratory rate 32, pulse ox 88-92%. CBC is unremarkable. Electrolytes are normal. BUN 30 creatinine 2.93. Blood sugars are running between 135 and 164. Cultures from October 04: Blood culture no growth, sputum culture finalized, urine culture finalized. Catheter tip culture is in process. Repeat chest x-ray shows bilateral interstitial infiltrates. Patient is on tube feedings of Nepro at goal of 30 ML's per hour. Patient underwent dialysis yesterday and is scheduled for repeat dialysis today. 10/07: Patient maintains in the intensive care unit intubated and on mechanical ventilation. She is receiving hemodialysis this morning has been every day. Plan is to remove 2-1/2 L today. Vent settings have changed today with tidal volume 350, FiO2 was increased to 100% and PEEP remains at 14. She has been continued on Nimbex, fentanyl, norepinephrine and propofol. Plan is to prone position patient following dialysis. Repeat chest x-ray reveals worsening interstitial infiltrates. BUN is 26 and creatinine 2.59. LDH 955, C-reactive protein 22.1. Prognosis remains poor. 10/08: Patient remains in intensive care unit intubated and on mechanical ventilation with tidal volume 350, FiO2 60, PEEP of 14. She is pronating today. She is scheduled for hemodialysis on a daily basis. She has been afebrile, heart rate 112, respiratory rate 36, blood pressure 161/88, pulse ox 93%. Repeat blood work reveals WBC 9.9, hemoglobin 9.1, platelet count 320. Sodium 133, potassium 5.3, chloride 100, CO2 20, BUN 29 creatinine 2.44. Blood sugar running between 102 and 139. LDH 1026, C-reactive protein 19.7. 10/09: Patient is undergoing dialysis this morning. She continues to be intubated and on mechanical ventilation with tidal volume 350, 270 and PEEP of 14. Patient is also on propofol, Nimbex, norepinephrine and fentanyl drips. Repeat chest x-ray reveals persistent bilateral multifocal and confluent opacities consistent with Covid 19. She is afebrile, heart rate 116, respiratory rate 36, blood pressure 120/65, pulse ox 91%. Repeat blood work reveals WBC 5.4, hemoglobin 9.2, platelet count 216. D-dimer 2.67, ferritin 2568, LDH 794, C- reactive protein 13.9. Blood sugars have been running 90-104. Creatinine 1.64. She is on daily dialysis treatment. 10/10: She remains in the intensive care unit. She is now out of isolation as a repeat Covid test came back negative. She remains on mechanical ventilation with tidal volume 350, FiO2 70 and PEEP of 14. Patient is also on Nimbex, propofol, norepinephrine, fentanyl drips. She is on PEG tube feedings at goal and tolerating well. Repeat blood work reveals WBC 7.8, hemoglobin 7.5, platelet count 267. Sodium 139, potassium 3.9, chloride 109, CO2 20, BUN 20 creatinine 1.29. Blood sugars are running between 76 and 102. Scheduled Aiyana Log decreased to 3 units. Repeat chest x-ray reveals moderate cardiomegaly and continued pulmonary edema. Slight interval improvement. Patient is continued on daily hemodialysis. 10/11: Patient remains in intensive care unit on mechanical ventilation with tidal volume 325, FiO2 70, PEEP 14. She is currently being prone. She underwent hemodialysis this morning with removal of 4 L of fluid with plan to continue daily treatment. She is currently on Nimbex, fentanyl and propofol. No vasopressor at this time. Fecal management system remains in place. She is on tube feedings currently at hold due to prone positioning. Patient has been afebrile, heart rate 116, respiratory rate 36, blood pressure 100/58, pulse ox 93-96%. Repeat blood work reveals WBC 9.3, hemoglobin 8.1, platelet count 276. Sodium 136, potassium 4.3, chloride 103, CO2 20, BUN 20 creatinine 1.14. Blood sugars running between 133 and 202. 10/12: Patient remains in the intensive care unit. She is undergoing hemodialy sis this morning. She's been afebrile, heart rate in the 120s, respiratory rate 32, blood pressure 102/65. She is not on vasopressors. She is continued on Nimbex, fentanyl and propofol. Vent settings are currently tidal volume 325, FiO2 70, PEEP 14. Total platelet count 273. Sodium 133, potassium 4.7, chloride 100, CO2 19, BUN 21 creatinine 0.91. Blood sugars running between 121 and 143. 10/13: Patient remain in the ICU she is on hemodialysis daily, she is still on the vent with a PEEP of 14 and FiO2 of 70. Her oxygenation is marginal pulse rate still high. Patient had scratched cornea was seen in ophthalmology decided to keep doing eyedrops along with eye patch at this point. Prognosis still very bad this point. 10/14: She remains on mechanical ventilation with tidal volume 325, FiO2 70% and PEEP of 14. She did require label fed last evening for about 6 hours. She did not tolerate pronating yesterday. She is undergoing dialysis this morning with plan for removal of 4 L. Blood sugars have been low and IV fluids changed to D10 until blood sugars have recovered. Levemir and scheduled NovoLog discontinued. Patient is on tube feedings at goal there's been no change in th is. 10/15 patient remains on mechanical ventilation in the intensive care unit. FiO2 still at 70%, PEEP of 18. Blood sugars have improved since medications were adjusted. White blood cells 33.9, hemoglobin 8.5, sodium 135, BUN 19, creatinine 0.96. Patient to receive dialysis again today. Patient did run a low-grade fever throughout the night and pro calcitonin level is ordered. Chest x-ray showed continued diffuse bilateral airspace disease. Patient remains on tube feedings at goal. 10/16: Patient remains on mechanical ventilation with tidal volume 300, FiO2 70, PEEP of 15. Fecal management system is out. She is currently on low dose of norepinephrine. She is also on fentanyl drip, propofol drip, rocuronium drip. Heart rate is running in the 130s, sinus rhythm, blood pressure 121/63, pulse ox 95%. Patient is been afebrile. Repeat blood work reveals WBC 18.9, hemoglobin 7.5, platelet count 291. Sodium 135, potassium 4.2, chloride 101, CO2 19, BUN 25 and creatinine 1.36. Blood sugars are running between 143 and 199. Patient is on scale insulin only. Repeat chest x-ray reveals persistent bilateral multifocal and completed opacities consistent with Covid 19. 10/17: Patient remains on mechanical ventilation with tidal volume 300, FiO2 50, PEEP of 14. She is currently receiving hemodialysis. The patient is having yellow-colored drainage from the trach site. This is going to be culture today. Repeat blood work reveals WBC of 24, hemoglobin 7.3 and platelet count 310. Sodium 136, potassium 4.1, chloride 101, CO2 19, BUN 24 creatinine 1.43. Blood sugar 139. Capillary blood glucose running 147 and 189. Repeat chest x-ray is unchanged. Patient had increased respiratory rate 40s and 50s with oxygen saturation of 87 and now was increased and Seroquel added this morning. Prognosis remains guarded. 10/18: Patient remains on mechanical ventilation with tidal volume 300, FiO2 60, PEEP has been decreased to 12. Patient will need a PEEP of 8 in order to tra nsfer to long-term care. She is currently on fentanyl drip and Precedex drip. Patient is tracking when her name is stated. She seems to be slightly improved today. Patient has been afebrile, heart rate 106, respiratory rate 32, blood pressure 110/61, pulse ox 98%. Repeat blood work reveals WBC 30.3, hemoglobin 7.2, platelet count 350. Sodium 139, potassium 4.2, chloride 103, CO2 20, BUN 23 creatinine 1.79. Blood sugars are increasing running up 299. Patient will be placed on Levemir. Secretions from tracheotomy sent for culture and in process. She is currently undergoing hemodialysis. 10/23: Patient remains in the intensive care unit on mechanical ventilation with tidal volume 300, FiO2 65 and PEEP of 10. emergency generator mechanic has been in a sinus rhythm. Patient does open her eyes and appears to be tracking. Blood sugars have been elevated. Levemir will be increased to 40 units daily and scheduled NovoLog increased to 12 units and continue NovoLog every 6 hours per scale. Patient is receiving hemodialysis today. She is not currently on vasopressors. Patient is on Precedex drip only. Antibiotics in the form of cefepime were started on October 18. Patient has been afebrile, heart rate 126, respiratory rate 36, blood pressure 163/105. Pulse ox 91%. Repeat blood work reveals WBC 16.0, hemoglobin 7.2, platelet count 208. Electrolytes are within normal limits. BUN 62 and creatinine 2.43. Blood sugars running between 259-321. Most recent blood culture from [facility] 20 is no growth at 24 hours. Repeat chest x-ray reveals cardiomegaly and persistent bilateral pulmonary edema. 10/24: Patient is awake, eyes are open and tracking, she is able to follow simple commands. Severe generalized weakness noted. Precedex gtt has been discontinued. Patient is receiving hemodialysis. Her blood sugars have remained elevated for which Levemir increased to 25 units twice daily along with 15 units of NovoLog every 6 hours along with scale. Tidal volume 330, FiO2 60, PEEP of 8. regional ehs manager and addiction social worker following closely. Anticipate possible discharge by the end of next week to long-term care facility. 10/25: Patient remains in the intensive care unit on mechanical ventilation. Tidal volume 350, FiO2 60, PEEP 8. She is receiving hemodialysis this morning. Her heart rate remains elevated in the 130s. Pulmonary as started her on Cardizem at 60 mg 3 times daily which has not had any improved effect. We'll start the patient on Lopressor 25 mg twice daily. Patient has been afebrile, heart rate respiratory rate 32, blood pressure 151/91, pulse ox 98%. Patient is been transfuse 1 unit of packed RBCs today. Patient's mental status is improving and patient is able to follow simple commands. WBC 12.2, hemoglobin 6.3, platelet count 196. Sodium 135 otherwise looked lites are normal, BUN 48 creatinine 1.99. Blood sugars are running between 120 and 172. Levemir has been increased to 30 mg twice daily continue 15 units of NovoLog every 6 hours with scale. 10/26: Patient remains in intensive care unit, on mechanical ventilation with tidal volume 375, FiO2 50, PEEP of 8. Patient's heart rate remains elevated 120s and Lopressor increased to 50 mg twice daily. Patient seems to be quite anxious and depressed. We will decrease Seroquel to 50 mg twice daily and start patient on Lexapro. Patient received her first dose of Xanax this morning but this did not seem to help heart rate either. She has been afebrile, heart rate 128, blood pressure 149/79, pulse ox 93%. Repeat hemoglobin 7.3. Sodium 135, potassium 3.9, chloride 90, CO2 30, BUN 45 and creatinine 1.94. Blood sugar are improved running between 117-194. We will make further adjustments to insulin and to increase long-acting to 35 units twice daily and decrease NovoLog scheduled to 7 units and continue NovoLog scale. There are problems with patient's trach and consequently placed with [facility]. General surgery to reevaluate trach. 10/27: Patient is complaining of nausea today. Concerned that this is related to Lexapro. We will further decrease Seroquel to 50 mg at bedtime. Patient is being bladder scanned and last bladder scan wasn't 125 mL. She does not have Haley catheter. No fecal management system. She is having a bowel movement about 3 per day. Plan is for CPAP trial today. She is currently on mechanical ventilation with tidal volume 375, FiO2 50 and PEEP of 8. She has been afebrile, heart rate 105 which is much improved from the last few days. Blood pressure 145/88, pulse ox 94%. There is a new consult in place for Dr. Clemente regarding exchanging the trach and possible debridement at site. WBC 11.4, hemoglobin 8.2, blood count 218. Sodium 136, potassium 4.1, chloride 97, CO2 31, BUN 47 creatinine 1.97. Blood sugars running between 129 and 204. We have changed long acting insulin to 35 units twice daily and continue NovoLog 7 units every 6 hours and scale every 6 hours. Nephrology may be decreasing frequency of dialysis treatments. Anticipate probable discharge to long-term care next week. 10/28: Patient was complaining of nausea today which has resolved. CPAP trial will continue today. She is currently on mechanical ventilation with a tidal volume 375, FiO2 of 50, PEEP of 8. She is afebrile, heart rate 108 which continues to show improvement. Blood pressure 133/87, pulse ox 99%. Patient is able to follow commands. And answers appropriately with nodding her head. WBC 10.5, hemoglobin 8.0, potassium 4.6, BUN 46, creatinine 1.96. Patient is currently receiving hemodialysis. 10/29: Patient was found sitting up in bed. Able to answer some questions appropriately. Utilizing kim. Able to follow commands. Ann over elevated blood sugars. Levemir 35 units twice a day will continue at this with a 7 unit coverage. Patient remains afebrile. Heart rate 102, respirations 29, blood pressure 124/74, pulse ox 97% on mechanical ventilation. Mechanical ventilation settings with a tidal volume 375, FiO2 of 50 and a PEEP of 8. Family has been into see patient. Hemodialysis will be held today. 10/30: Patient remains in the ICU on mechanical ventilation. She is not requiring pressure support. She is on CPAP support. She is receiving hemodialysis this morning with plan to start a Friday schedule this week. Blood sugars are stable and running between 140 and 184. She is on tube feedings at goal and having bowel movements every 12 hours. Repeat blood work reveals WBC 8.9, hemoglobin 10.2, platelet count 258. Sodium 133, potassium 5.0, chloride 97, CO2 23, BUN 69 creatinine 2.67. 10/31: Patient is seen today in intensive care unit. She remains on mechanical ventilation with tidal volume 375, FiO2 45 of PEEP of 5. Patient is found sitting in a chair working with physical therapy. Patient is noted to have left arm weakness without pain and good sensation. She is not receiving dialysis today and will be started on Friday regime. Patient's heart rate is better controlled in the 80s, blood pressure 113/65, pulse ox 99%. Patient is been afebrile. Patient has been on cefepime. Repeat blood work reveals WBC 9.3, hemoglobin 6.9 and patient is transfused 1 unit of packed RBCs today. Platelet count 248. Electrolytes are within normal range, BUN 38 and creatinine 2.04. Her blood glucose running between 130 and 193. AST 38. Social work is working with the daughter regarding discharge planning. 11/01: A she was undergoing dialysis with plan for 3 L removed today and dialysis is scheduled Friday. She is in bed and appears to be comfortable. She is able to talk and express herself and is cognitively intact. She remains on mechanical ventilation. She has been afebrile, heart rate 107, blood pressure 115/85, pulse ox 99%. Repeat blood work reveals WBC 8.5, hemoglobin 7.5, platelet count 278. Sodium 136, potassium 4.8, chloride 100, CO2 27, BUN 55 creatinine 2.81. Blood sugar running between 114 and 185. Ca lcium 10.3, total bilirubin 0.2, AST 34, ALT 34, alkaline phosphatase 144. Social work is working on discharge planning which will be to [facility], [facility] or [facility]. REVIEW OF SYSTEMS Constitutional: No fever, no chills, no night sweats. No weight change. Profound weakness, +fatigue no lethargy. Reported daytime sleepiness. EENT: No headache. No loss of vision. No loss of Hearing. No nasal drainage or congestion. No epistaxis. No sore throat. Lungs: No shortness of breath, cough, no sputum production. No wheezing. Cardiovascular: No chest pain, no lower extremity edema. No palpitations. No paroxysmal nocturnal dyspnea. No orthopnea. No lightheadedness or dizziness. No syncopal episodes. Abdominal: No abdominal pain. No nausea, vomiting. No diarrhea. No constipation. No bloody or tarry stools. loss of appetite- peg tube. Genitourinary: No dysuria, increased frequency, urgency. No urinary retention. Minimal urine production Musculoskeletal: No myalgias. Noted muscle weakness, noted gait dysfunction, no frequent falls. No back pain. No neck pain. Integumentary: Positive wounds, no lesions. No rash or pruritus. No unusual bruising. No change in hair or nails. Neurologic: No aphasia. No facial droop. Noted change in mentation-improved. No head injury. No headache. No paralysis. No paresthesia. Psychiatric: suspected depression. positive anxiety. Endocrine: Noted abnormal blood sugars-stable and monitored. PHYSICAL EXAMINATION Gen: This is is a 35-year-old black female, patient is on mechanical ventilation, and sitting in ICU bed undergoing HD. HEENT: Head is atraumatic, normocephalic. Pupils equal, round. Sclerae is anicteric. Eyes are open and tracking. Tracheostomy midline. NECK: Supple. No JVD. No lymphadenopathy. No thyromegaly. LUNGS: Lung sounds are clear to auscultation. No intercostal retractions. HEART: Regular rate and rhythm. No murmur. emergency generator mechanic sinus tachycardia. ABDOMEN: Soft. Bowel sounds are present. No masses. No tenderness. EXTREMITIES: Trace bilateral pedal edema. No calf tenderness. NEUROLOGICAL: Patient is awake, alert, oriented and able to follow commands, significant weakness. ASSESSMENT AND PLAN 1. Acute hypoxic respiratory failure secondary to Covid 19 pneumonia and possible bacterial pneumonia. Patient was intubated on September 11. She is status post 1 dose of Remdesivir and 1 dose of Tocilizumab. Continue Ventolin inhaler 4 times daily, Lovenox 30 mg subcu daily, supplements. Status post PEG tube and trach. Continue cefepime. 2. Acute diabetic ketoacidosis secondary to Covid 19 pneumonia, uncontrolled with hyperglycemia. Levemir increased to 35 units twice daily and scheduled NovoLog increased to 7 units every 6 hours and continue NovoLog scale every 6 hours. 3. Metabolic encephalopathy secondary to Covid 19 and DKA. 4. Sepsis and septic shock secondary to Covid 19 pneumonia with multiorgan failure. Continue as in #1. Trach drainage cultured. General surgery on consult. 5. Acute metabolic acidosis secondary to acute DKA, Covid 19 and acute kidney injury. Renvela 1600 mg q6h. 6. Diabetes mellitus type 2 uncontrolled with A1c 13.6. Continue as above. 7. Hypophosphatemia status post replacement. 8. Hyperkalemia secondary to DKA, resolved. 9. Sinus tachycardia secondary to sepsis, volume deficiency. Patient is on Cardizem 60 mg 3 times daily, and Lopressor 50 mg twice daily. 10. Acute kidney injury secondary to ATN secondary to Covid 19 and DKA. Continue daily hemodialysis. Permanent dialysis catheter placed. 11. Possible acute gram-negative pneumonia versus MRSA pneumonia. Completed course of antibiotics. 12. Hypertension. 13. Morbid obesity with BMI of 53. 14. Situational depression and anxiety. Seroquel decreased to 50 mgat bedtime, continue Lexapro 10 mg daily and Xanax 0.25 mg twice daily as needed. 15. DVT prophylaxis. Lovenox. 16. GI prophylaxis. Protonix 40 mg IV push daily. 17. Stage IV pressure ulcer to trach site. Currently utilizing absorptive silver dressing. 18. Stage II decubitus ulcer to coccyx. 19. Critical illness polyneuropathy and myopathy. Continue physical therapy. 20. Anemia of chronic disease. Transfuse 1 unit of packed RBCs, continue Aranesp 40 g every 7 days. CODE STATUS: Full code Prognosis guarded. [facility] are [facility]. Impression and plan of care have been directed as dictated by the signing physic ian. Kimberly Boswell nurse practitioner acting as scribe for signing physician. Objective - Vital Signs Vital signs: Vital Signs Temp 98.2 F 11/01/20 08:00 Pulse 105 H 11/01/20 09:00 Resp 20 11/01/20 09:00 BP 145/91 11/01/20 09:00 Pulse Ox 99 11/01/20 09:00 Intake & Output 10/31/20 11/01/20 11/01/20 18:59 06:59 18:59 Intake Total 1032 762 198 Output Total 0 0 0 Balance 1032 762 198 Weight 89.1 kg 87.6 kg Intake: IV 170 120 30 0.9 Normal Saline @ KVO 120 120 30 Cefepime 1 gm In Sodium 50 Chloride 0.9% 50 ml @ 12. 5 mls/hr IVPB Q24H [facility] Rx #:[id number] Intake, IV Titration 50 Amount Cefepime 1 gm In Sodium 50 Chloride 0.9% 50 ml @ 12. 5 mls/hr IVPB Q24H [facility] Rx #:[id number] Tube Feeding 552 552 138 Other 260 90 30 Output: Urine 0 0 0 Other: # Bowel Movements 2 ABP, PAP, CO, CI - Last Documented Arterial Blood Pressure 136/76 - Labs CBC & Chem 7: 11/01/20 03:24 11/01/20 03:24 Labs: Abnormal Lab Results - Last 24 Hours (Table) 10/31/20 10/31/20 10/31/20 Range/Units 11:43 18:00 23:31 RBC (3.80-5.40) m/uL Hgb (11.4-16.0) gm/dL Hct (34.0-46.0) % RDW (11.5-15.5) % Sodium (137-145) mmol/L BUN (7-17) mg/dL Creatinine (0.52-1.04) mg/dL Glucose (74-99) mg/dL POC Glucose (mg/dL) 130 H 169 H 159 H (75-99) mg/dL Calcium (8.4-10.2) mg/dL Total Protein (6.3-8.2) g/dL Albumin (3.5-5.0) g/dL 11/01/20 11/01/20 11/01/20 Range/Units 03:24 03:24 05:42 RBC 2.66 L (3.80-5.40) m/uL Hgb 7.5 L (11.4-16.0) gm/dL Hct 23.6 L (34.0-46.0) % RDW 16.5 H (11.5-15.5) % Sodium 136 L (137-145) mmol/L BUN 55 H (7-17) mg/dL Creatinine 2.81 H (0.52-1.04) mg/dL Glucose 162 H (74-99) mg/dL POC Glucose (mg/dL) 185 H (75-99) mg/dL Calcium 10.3 H (8.4-10.2) mg/dL Total Protein 5.8 L (6.3-8.2) g/dL Albumin 3.1 L (3.5-5.0) g/dL
[2020-11-01] MEDS: DARBEPOETIN ALFA 40 MCG/0.4 ML SYRINGE SQ SCH (12:19)
--- NOTE | 2020-11-01 13:18 | PN ---
PROGRESS NOTE Patient is seen for followup for acute kidney injury. She remains dialysis dependent with poor urine output. This morning patient is awake. She is comfortable. She is tolerating tube feeds. She has been on BiPAP for about almost 20 hours yesterday, tolerating treatment fairly well. We had about 4 L of ultrafiltration again on Friday and the goal is the same today. PHYSICAL EXAMINATION: On examination today, blood pressure 115/85, heart rate 107 per minute. She is afebrile. Examination shows no significant edema bilaterally. Patient is awake. FILM AND VIDEO EDITOR exam grossly intact. She is following commands. She remains on the vent. LAB: Show sodium 136, potassium 4.8, BUN 55, creatinine 2.8, hemoglobin 7.5 g/dL. ASSESSMENT: 1. Acute kidney injury, acute tubular necrosis, currently dialysis dependent, maintained on a Friday, Friday, Friday schedule, tolerating every other day dialysis fairly well. 2. Volume overload, significantly improved. 3. Acute hypoxic respiratory failure multifactorial including Covid pneumonia, ARDS and bacterial pneumonia currently improving. 4. Status post trach and PEG. 5. Anemia, no active bleeding noted, maintained on Aranesp, status post packed RBCs transfusion. Plan is next treatment will be on Tuesday, November 03, 2020. MMODL / IJN: [id number] /
--- NOTE | 2020-11-01 13:57 | P.PN ---
Subjective Progress Note Date: 11/01/20 CHIEF COMPLAINT: COVID-19 pneumonia HISTORY OF PRESENT ILLNESS: Patient is in the ICU for COVID-19 pneumonia and respiratory failure. She is status post tracheostomy and PEG tube placement with Dr. Zhang. Patient is tolerating tube feedings. Her tube feedings are at goal. A she is on CPAP. Patient has no abdominal pain. She is having bowel movements. She has diffuse pain requiring Tylenol and Dilaudid. Afebrile. WBC is 8.5 they're working on transferring patient to extermination inspector care facility PHYSICAL EXAM: VITAL SIGNS: Reviewed. GENERAL: Well-developed in no acute distress. HEENT: No sclera icterus. Extraocular movements grossly intact. Moist buccal mucosa. Head is atraumatic, normocephalic. Patient has wound located and skin breakdown at tracheostomy site. The wound is measuring 5.5 x 3 cm. ABDOMEN: Soft. Nondistended. Nontender. PEG tube site clean dry and intact NEUROLOGIC: Awake and opens eyes ASSESSMENT: 1. Acute hypoxic respiratory failure with prolonged mechanical ventilation due to COVID-19 pneumonia status post tracheostomy placement 2. Severe protein calorie malnutrition status post PEG tube placement 3. Pressure wound at tracheostomy site PLAN: -Continue tube feedings -Continue supportive care -Continue ICU management -Continue wound care at tracheostomy site Physician Gis Software Engineer note has been reviewed by physician. Signing provider agrees with the documented findings, assessment, and plan of care. Objective - Vital Signs Vital signs: Vital Signs Temp 98.2 F 11/01/20 08:00 Pulse 107 H 11/01/20 11:00 Resp 23 11/01/20 11:00 BP 115/85 11/01/20 11:00 Pulse Ox 99 11/01/20 11:00 Intake & Output 10/31/20 11/01/20 11/01/20 18:59 06:59 18:59 Intake Total 1032 762 310 Output Total 0 0 0 Balance 1032 762 310 Weight 89.1 kg 87.6 kg Intake: IV 170 120 50 0.9 Normal Saline @ KVO 120 120 50 Cefepime 1 gm In Sodium 50 Chloride 0.9% 50 ml @ 12. 5 mls/hr IVPB Q24H [facility] Rx #:[id number] Intake, IV Titration 50 Amount Cefepime 1 gm In Sodium 50 Chloride 0.9% 50 ml @ 12. 5 mls/hr IVPB Q24H [facility] Rx #:[id number] Tube Feeding 552 552 230 Other 260 90 30 Output: Urine 0 0 0 Other: # Bowel Movements 2 ABP, PAP, CO, CI - Last Documented Arterial Blood Pressure 136/76 - Labs CBC & Chem 7: 11/01/20 03:24 11/01/20 03:24 Labs: Abnormal Lab Results - Last 24 Hours (Table) 10/31/20 10/31/20 11/01/20 Range/Units 18:00 23:31 03:24 RBC 2.66 L (3.80-5.40) m/uL Hgb 7.5 L (11.4-16.0) gm/dL Hct 23.6 L (34.0-46.0) % RDW 16.5 H (11.5-15.5) % Sodium (137-145) mmol/L BUN (7-17) mg/dL Creatinine (0.52-1.04) mg/dL Glucose (74-99) mg/dL POC Glucose (mg/dL) 169 H 159 H (75-99) mg/dL Calcium (8.4-10.2) mg/dL Total Protein (6.3-8.2) g/dL Albumin (3.5-5.0) g/dL 11/01/20 11/01/20 11/01/20 Range/Units 03:24 05:42 11:19 RBC (3.80-5.40) m/uL Hgb (11.4-16.0) gm/dL Hct (34.0-46.0) % RDW (11.5-15.5) % Sodium 136 L (137-145) mmol/L BUN 55 H (7-17) mg/dL Creatinine 2.81 H (0.52-1.04) mg/dL Glucose 162 H (74-99) mg/dL POC Glucose (mg/dL) 185 H 114 H (75-99) mg/dL Calcium 10.3 H (8.4-10.2) mg/dL Total Protein 5.8 L (6.3-8.2) g/dL Albumin 3.1 L (3.5-5.0) g/dL
[2020-11-01] MEDS: ONDANSETRON 4 MG/2 ML VIAL IVP PRN (14:29)
[2020-11-01] MEDS: CEFEPIME 1 GM in SODIUM CHLORIDE 0.9% 50 ML IVPB SCH (14:29)
[2020-11-01 17:30] LABS: Glucose,Whole Blood 178 mg/dL (75-99)
[2020-11-01] MEDS: QUEtiapine 50 MG TAB PO SCH (21:19)
[2020-11-02 00:24] LABS: Glucose,Whole Blood 144 mg/dL (75-99)
[2020-11-02] MEDS: NYSTATIN 100,000 UNIT/ML SUSP 500,000 UNIT/5 ML CUP PO SCH ×4 (00:27→18:40)
[2020-11-02] MEDS: INSULIN ASPART (NovoLOG) 100 UNIT/ML VIAL SQ SCH ×8 (00:27→18:39)
[2020-11-02] MEDS: SEVELAMER 800 MG TAB PO SCH ×4 (00:27→18:40)
[2020-11-02] MEDS: HYDROmorphone 0.5 MG/0.5 ML SYRINGE IVP PRN ×5 (00:28→20:02)
[2020-11-02] MEDS: diphenhydrAMINE 50 MG/ML 1 ML VIAL IVP PRN ×2 (02:49→18:40)
[2020-11-02 05:17] LABS: Anisocytosis Slight; Basophils % (A) 0 %; Eosinophils # (A) 0.7 k/uL (0-0.7); Eosinophils % (A) 8 %; HCT 22.2 % (34.0-46.0); HGB 7.2 gm/dL (11.4-16.0); Hypochromasia Moderate; Lymphocytes # (A) 0.8 k/uL (1.0-4.8); Lymphocytes % (A) 10 %; MCH 28.3 pg (25.0-35.0); MCHC 32.4 g/dL (31.0-37.0); MCV 87.3 fL (80.0-100.0); Mean Platelet Volume 8.7; Monocytes # (A) 0.5 k/uL (0-1.0); Monocytes % (A) 6 %; Neutrophils % (A) 73 %; Platelet Count 255 k/uL (150-450); Poikilocytosis Slight; RBC 2.54 m/uL (3.80-5.40); RDW 16.7 % (11.5-15.5); WBC 8.3 k/uL (3.8-10.6)
[2020-11-02 05:46] LABS: Calcium 9.9 mg/dL (8.4-10.2); Potassium 4.5 mmol/L (3.5-5.1)
[2020-11-02 06:17] LABS: Glucose,Whole Blood 158 mg/dL (75-99)
[2020-11-02] MEDS: INSULIN DETEMIR (LEVEMIR) 100 UNIT/ML SYR SQ SCH ×2 (06:23→20:59)
[2020-11-02] MEDS: ALBUTEROL HFA INHALER INHALATION SCH ×4 (08:36→20:32)
[2020-11-02] MEDS: METOPROLOL TARTRATE 50 MG TAB PO SCH ×2 (10:01→20:59)
[2020-11-02] MEDS: ASCORBIC ACID 500 MG TAB PO SCH ×2 (10:02→20:59)
[2020-11-02] MEDS: CHLORHEXIDINE GLUCONATE 15 ML CUP MUCOUS MEM SCH ×2 (10:02→20:58)
[2020-11-02] MEDS: ESCITALOPRAM 10 MG TAB PO SCH (10:02)
[2020-11-02] MEDS: NYSTATIN 100,000 UNIT/GM POWD 15 GM TOPICAL SCH ×3 (10:02→21:00)
[2020-11-02] MEDS: CHOLECALCIFEROL 25 MCG (1000 IU) TABLET PO SCH (10:03)
[2020-11-02] MEDS: DILTIAZEM ORAL 60 MG TAB PO SCH ×3 (10:03→21:00)
[2020-11-02] MEDS: ENOXAPARIN 30 MG/0.3 ML SYRINGE SQ SCH (10:03)
[2020-11-02] MEDS: PANTOPRAZOLE 40 MG/10 ML VIAL IVP SCH ×2 (10:04→20:58)
[2020-11-02] MEDS: HYDROPHILIC CREAM 180 GM TUBE TOPICAL SCH (10:04)
--- NOTE | 2020-11-02 10:36 | P.PN ---
Subjective Progress Note Date: 11/02/20 Principal diagnosis: Acute respiratory failure secondary to Covid 19 pneumonia. Patient was reevaluated today on 10/05/2020, remains in the ICU, intubated, mechanically ventilated, patient is doing worse today compared to the last few days, her chest x-ray is worsening, her O2 requirement is rising and she is back on the percent FiO2, I have also increased her PEEP to 16, assist control rate was increased to 52, FiO2 is on the percent. ABG earlier today on 70% FiO2 showed a pO2 of 56 pCO2 of 50 pH of 7.32. She was on assist control rate of 28 tidal volume of 400 FiO2 70% and PEEP of 14. Patient had to be placed on a higher dose of propofol which was increased to 70 fentanyl is at 2 mcg/kg/m, patient will be placed on Nimbex as I'm having difficulty oxygenating the pat ient in spite of high FiO2. She is scheduled to undergo hemodialysis again today, she had 4 L off yesterday. Remains on tube feeds using vital AF at 30 MLS per hour. Patient is tachycardic rate is 129, blood pressure is marginal 86/45, hence may recommend adding norepinephrine. The overall picture clearly showing deterioration in this patient's clinical status, and I have a feeling that this patient will continue to do poorly and she is now maximized on treatment. Again her chest x-ray is showing significant worsening of her infiltrates. Patient was reevaluated today on 10/06/2020, remains in the ICU, intubated and mechanically ventilated, and she is presently in prone position since last night for the next few hours until dialysis which is supposed to start sometime in the next couple of hours. Patient remains on assist control mode of mechanical ventilation, it is volume control with volume of 350 rate of 3 to FiO2 65%. 14. Her ABG showed a pO2 of 68 pCO2 of 52 pH of 7.28. Patient remains on propofol at 75 fentanyl at 3 mcg/kg/h she is also on norepinephrine at 0.02 and Nimbex at 3 mcg/kg/m. Patient is scheduled to have hemodialysis today. Chest x-ray continues to show evidence of bilateral interstitial infiltrates. Patient is on enteral feeding in the form of Nepro at 30/30. Patient has been proned now for the last 17 hours. Electrolytes are normal however her BUN is 30 creatinine 2.93. Blood sugar is 147 WBC count is 5.1 hemoglobin is 11.4. Patient remains on the COVID-19 cocktail. Remains on albuterol, Symbicort, Decadron 4 mg IV push daily, Lovenox 30 mg subcu daily. Insulin protocol. Her tonic 40 mg IV push daily. Off antibiotics. Patient was reevaluated today on 10/07/2020, remains in the ICU, intubated and mechanically ventilated, presently receiving hemodialysis. She is on assist control rate of 32, tidal volume of 350, FiO2 is up to on the percent today, and PEEP of 14. Higher PEEP did not seem to help much, hence I kept her on a PEEP of 14. ABG today showed a pO2 of 63 pCO2 53 pH of 7.25. A shunt is on Nimbex at 4 mcg/kg/m, fentanyl 3 mcg/kg/h, norepinephrine at 0.07 mcg/kg/m, propofol at 75 mcg/kg/m. Again the patient is receiving hemodialysis, and I have instructed the nurses today to go back into prone position after she is done with dialysis. Chest x-ray continues to show worsening interstitial infiltrates and ARDS pic ture. Labs were all reviewed. Her medications were all reviewed today. Basic metabolic profile is normal BUN is 26 creatinine 2.59. LDH is 955 and C- reactive protein is 22.1. Not much of a change in the last few days. Patient was reevaluated today on 10/08/2020, remains in the ICU, intubated and mechanically ventilated, patient is presently in prone position her ABG this morning showed significant improvement in her oxygenation, however continues to have a combined metabolic and respiratory acidosis. She is now on assist control of 350 rate of 36 FiO2 down to 60% PEEP at 14. ABG on 100% showed a pO2 of 209 pCO2 of 59 pH of 7.15. Her assist control rate was increased to 36. Kept her on the same tidal volume of 350. 2 A of bicarb were given. Patient is also on bicarb drip. Patient remains on propofol at 75 mcg/kg/m, she is on Nimbex at 4 mcg/kg/m, and norepinephrine at 0.01 mcg/kg/m. Patient is also on fentanyl at 3 mcg/kg per hour. During my evaluation, the patient was in prone position, however should be placed back in supine position once dialysis is ready and the patient will be dialyzed again today. Chest x-ray from yesterday continues to show evidence of interstitial edema and ARDS. No chest x-ray has been done yet today because the patient was in prone position. Patient remains on Decadron, remains on Lovenox, she is off antibiotics for now. CBC showed WBC 9.9 hemoglobin is 9.1. Hematocrit is 28.7. Electrodes are normal. BUN is 29 and creatinine 2.44. Bicarb is 20. LDH is up a bit 1026, C-reactive protein is about the same at 19.7. Progress note dated 10/09/2020. This is a 35-year-old black female with history of acute COVID 19 infection, with acute hypoxemic respiratory failure. She was admitted way back on September 10. Because of failure to wean from mechanical ventilation, she underwent tracheostomy and PEG tube placement on September 18. Currently remains on the ventilator. She is on the VC + (PRVC) modality, with a targeted tidal volume 350 and inspiratory time of 0.9 seconds. Her rate is set at 36. FiO2 70%, and PEEP of 14. On those settings, her arterial blood gases show a PaO2 of 72, pCO2 47, and pH 7.23. Currently, the patient's getting daily hemodialysis. Her drips including propofol at 75 mcg/kg/m, Nimbex at 3.5 mcg/kg/m, with [id number] monitoring, fentanyl at 3 g kilogram per hour, norepinephrine at 7 mcg/m, saline at 20 mL an hour, and vital 1.2 at 10 mL an hour, which is goal. White count 5.4, hemoglobin 9.2, hematocrit 28.8, and platelet count 217,000. Sodium 137, potassium 4.2, chlorides 108, CO2 19, anion gap 10, BUN 22, and creatinine 1.64. The patient's chest x-ray is consistent with bilateral infilt rates, and is essentially unchanged, and consistent with a diagnosis of coronavirus pneumonia. Progress note dated 10/10/2020. 35-year-old black female, with a history of COVID 19 infection and acute hypoxemic respiratory failure. She was admitted way back on September 10. Because of failure to wean from mechanical ventilation, she underwent tracheostomy and PEG tube placement on September 18. She remains on the mechanical ventilator. She is on the pressure regulated volume control modality. Her targeted tidal volume is 350 mL, and her inspiratory time 0.9 seconds. The patient's on 70% FiO2, PEEP o f 14, with a rate of 36. The patient is receiving Nimbex at 4.5 mcg/kg/m, propofol at 65 mcg/kg/m, norepinephrine at 3.5 mcg/m, fentanyl at 2.5 mcg/kg/h, and vital AF 1.2 at 10 mL an hour which is goal. The patient's blood gases from this morning show a PaO2 of 79, 5, and a pH is 7.29. Today's chest x-ray is currently still pending. Overnight, there've been no major changes in her condition. White count 7.8, hemoglobin 7.5, hematocrit 23.1, and platelet count 267,000. Sodium 139, potassium 3.9, chlorides 109, CO2 20, anion gap 10, BUN 20, with creatinine 1.29. Progress note dated 10/11/2020. 35-year-old black female with a history of COVID 19 infection and acute hypoxemic respiratory failure. She was admitted back on September 10. Because of failure to wean from mechanical ventilation, she underwent tracheostomy and PEG tube placement on September 18. She remains on the mechanical ventilator to this day. Currently, she is on pressure regulated [place] control, with a targeted tidal volume of 350, inspiratory time of 0.9 seconds, FiO2 70%, PEEP of 14, and a rate of 36. Her blood gases show a PaO2 of 74, pCO2 46, pH 7.28. In an attempt to reduce the FiO2, I was going to go up on the PEEP, but I was reminded that the patient has a issue with high airway pressures, potentially causing airway and alveolar trauma. For that reason, I will switch her to volume assist control modality, with a tidal volume at 325, rate 32, FiO2 70%, and PEEP of 14. This will cause permissive hypercapnic ventilation. I'm okay with this, and I will except a pH of 7.15 or higher. He blood gas will be done in one hour. The patient has daily hemodialysis. We will attempt to prone the patient for 16 hours today. She apparently does well with that modality. Currently, she is on saline at KVO, propofol at 65 mcg/kg/m, fentanyl at 2.5 mcg/kg/h, Nimbex at 3.5 mcg/kg/m, and norepinephrine has been weaned off. She is getting vital AF, at 10 mL an hour, which is goal. Over the last 3 days, since I've been seeing her, there is not been much in the way of progress. White count 9.3, hemoglobin 8.1, hematocrit 26.4, platelet count 276,000. Sodium 136, potassium 4.3, chlorides 103, CO2 20, anion gap 13, BUN and creatinine were 20 and 1.14. Chest x-ray today shows improvement of volume status. Progress note dated 10/12/2020. 35-year-old black female again seen in the intensive care unit, room 265. She has a history of coronavirus pneumonia with acute hypoxemic respiratory failure. She was admitted way back on September 10. She ended up with a tracheostomy and PEG tube placement on September 18 for failure to wean from mechanical ventilation. She remains on the ventilator. She is on volume assist control mode rate of 32, tidal volume 325, FiO2 70%, PEEP of 14. Arterial blood gases show pO2 of 54, pCO2 60, pH is 7.17. She's getting hemodialysis today. Peak airway pressures about 21 cm water. He is getting propofol at 75 mcg/kg/m, fentanyl at 3.5 mcg/kg/h, Nimbex at 7 mcg/kg/m, and saline at KVO. Her tube feeds include vital AF at 10 mL an hour, which is goal. She currently tested negative for coronavirus. She is getting hemodialysis today. Chest x-rays essentially unchanged. White count 10.4, he will May 0.1, hematocrit 25.9, platelet count 273,000. Sodium 133, potassium 4.7, chlorides 100, CO2 19, anion gap 14, BUN and creatinine were 21 and 0.91. This electrolyte profile consistent with an anion gap metabolic acidosis. Saturations currently are 95%. Medications are reviewed. Progress note dated 10/13/2020. 35-year-old black female, seen again in the ICU, room 265. She has a history of coronavirus pneumonia with acute hypoxemic respiratory failure. She was admitted to this hospital on the . She ended up with a tracheostomy and PEG tube being placed on September 18 for failure to wean from mechanical ventilation. She remains on mechanical ventilator. Currently, she is on the volume assist control mode, rate 32, tidal volume 325, FiO2 70%, PEEP of 14. Arterial blood gases show pO2 70, pCO2 of 56, and a pH is 7.26. The patient is currently also on Nimbex at 2.5 mcg/kg/m with train of 4 monitoring, propofol at 50 mcg/kg/m, and fentanyl at 2 mcg/kg/h. The patient's also getting vital AF and 10 mL an hour, which is goal. The patient's airway pressures today are a bit better. Her peak airway pressures are in the low 40s. While she was being prone yesterday, there was a significant cuff leak. Hence, she had be placed in the supine position. White count 14.2, hemoglobin 8.3, hematocrit 26.4, and platelet count 285,000. Sodium 134, potassium 4, chlorides 99, CO2 23, anion gap 12, BUN 21, and creatinine 0.70. Microbiology is all negative. Chest x-ray continues to show diffuse bilateral infiltrates. Progress note dated 10/14/2020. 35-year-old black female seen again in room 265. She has a history of coronavirus pneumonia with acute hypoxemic respiratory failure. She was admitted to the hospital on September 10. She ended up with a tracheostomy and PEG tube being placed on September 18 for failure to wean from mechanical ventilation. Roslyn oconnor remains on the ventilator. Currently, she is on volume assist control mode, rate 32, tidal volume 325, FiO2 70%, and PEEP of 14. She's receiving propofol 60 mcg/kg/m, fentanyl at 3 mcg/kg/h, and Nimbex at 7 mcg/kg/m. The patient is also receiving saline at 20 mL an hour. She's been on and off of norepinephrine area and currently is on hold. She is also receiving vital AF at 10 mL an hour which is goal. Laboratory data from today is not yet available. From October 13, white count 14.2, hemoglobin 8.3, and platelet count was normal. Also, blood gases from yesterday show pO2 70, pCO2 of 56, and pH is 7.26. Electrolytes are essentially within normal range. Chest x-ray from yesterday continues to show bilateral infiltrates, without much change. Progress note dated 10/15/2020. 35-year-old black female, again seen in room 265. She has a history of coronavirus pneumonia, with acute hypoxemic respiratory failure. She was admitted to the hospital back on September 10. She ended up with a tracheostomy and PEG tube being placed on September 18 for failure to wean from mechanical ventilation. She's been in the hospital now for 35 days. Currently remains on the ventilator. She's on the volume assist control mode, rate 32, tidal volume 325, FiO2 70%, EPAP of 18. Blood gases show pO2 of 80, pCO2 61, pH is 7.15. The patient will have hemodialysis today. Yesterday, hemodialysis was done, and 4 L was removed. The patient is currently on propofol at 70 mcg/kg/m, fentanyl at 3 mcg/kg/h, Nimbex at 8 mcg/kg/m, no epinephrine at 6 mg/m, 0.9 at 10 mL an hour, and vital AF at 10 mL an hour which is goal. Unfortunately, she is twitching 4 out of 4 on the Nimbex at the current dose, and we will switch her to rocuronium at 5 mcg/kg/m. We'll titrate accordingly, and monitor the patient with [id number] testing. Current laboratory data includes a white count of 33.9, hemoglobin 8.5, hematocrit 26.4, and platelet count 367,000. Sodium 135, potassium 4.5, chlorides 100, CO2 21, anion gap 14, BUN 19, creatinine 0.96. Microbiologic data is all negative. Progress note dated 10/30/2020. 35-year-old black female, who is now been in the hospital for 50 days. The patient was admitted back on September 10. The patient underwent tracheostomy and PEG tube placement on September 18, for chronic respiratory failure, failure to wean from mechanical ventilation, secondary to severe coronavirus pneumonia and hypoxemia. She remains on mechanical ventilator. She is on the VC plus mode, with a targ eted tidal volume of 375, and inspiratory time of 0.9 seconds. The rate of 32, FiO2 45%, and PEEP of 6. Blood gases were not done today. She remains on saline at 10 mL an hour, and vital AF at 46 mL an hour, which is goal. We will attempt to place her on some pressure support and CPAP. We'll use settings of 15/5. She did very well with that last week. Currently, she remains on cefepime. A white count 8.9, hemoglobin 7.2, hematocrit 21.9, and a normal platelet count. Sodium 133, potassium 5, chlorides 97, CO2 23, anion gap is 13, BUN 69, and creatinine 2.67. One of the discharge issues, as the patient is currently still on daily hemodialysis. No chest x-ray today. Progress note dated 10/31/2020. 35-year-old black female, who is now been in the hospital for 51 days. The patient was admitted back on September 10. She underwent tracheostomy and PEG tube placement on September 18 for chronic respiratory failure with failure to wean from the chemical ventilation, secondary to severe coronavirus pneumonia and hypoxemia. Yesterday, she was on the VC plus mode. Currently, suggested a, she 's been on pressure support of 15, and CPAP of 5. When on VC plus, she has a targeted tidal volume of 375, respiratory rate of 32, inspiratory time of 0.9 seconds, FiO2 45%, and PEEP of 5. Blood gases, done on pressure support, show pO2 of 76, pCO2 47, and pH 7.38. The patient's on saline at 10 mL an hour, and vital AF at 46, which is goal. White count 9.3, hemoglobin 6.9, hematocrit 21.6, platelet count 248,000. Sodium potassium chloride CO2 all normal. Anion gap 7, BUN and creatinine were 38 and 2.04. Today's chest x-ray is stable. Progress note dated 11/01/2020. 35-year-old white female, who is been in the hospital for 52 days. She was admitted back on 09/10/2020. She was admitted with a diagnosis of acute hypoxemic respiratory failure secondary to coronavirus pneumonia. She underwent tracheostomy and PEG tube placement on September 18, for failure to wean from mechanical ventilation. Currently, the patient's on pressure support of 15 cm water, and CPAP of 5 cm water. When she is not on these settings, she is on the VC plus modality. No blood gases today. She's getting saline at 10 mL an hour. Getting vital AF at 46 mL now which is goal. She is receiving hemodialysis today. We are hoping, the patient can be transferred to a long-term acute care facility. That still not decided as yet. White count 8.5, hemoglobin 7.5, hematocrit 23.6, and platelet count 278,000. Sodium 136, potassium 4.8, chlorides 100, CO2 27, anion gap 9, BUN 55, creatinine 2.81. Chest x-ray from yesterday shows a stable pattern of diffuse bilateral infiltrates. Progress note dated 11/02/2020 35-year-old black female with a history of prolonged hospitalization a 53 days for hypoxemic respiratory failure secondary to coronavirus pneumonia. The patient was admitted back on 09/10/2020. For respiratory failure, and failure to wean from mechanical ventilation, she underwent tracheostomy and PEG tube placement on September 18. Currently, the patient's on the VC plus mode. Targeted tidal volume is 375 mL, inspiratory time is 0.9 seconds, rate 32, FiO2 40%, PEEP of 5. No blood gases were done. The patient's on saline at KVO. She received hemodialysis yesterday and 4 L was removed. She is on vital AF at 46 mL an hour, which is goal. The patient is ready for discharge to long-term acute care my opinion. White count 9.3 hemoglobin 7.2, hematocrit 22.2, and platelet count 255,000. Sodium 135, potassium 4.5, chlorides 98, CO2 28, anion gap 9, BUN 42, and creatinine 2.36. Chest x-ray from 2 days ago is reviewed. There has been no significant changes. Objective - Vital Signs Vital signs: Vital Signs Temp 98.2 F 11/02/20 08:00 Pulse 107 H 11/02/20 09:00 Resp 32 H 11/02/20 09:00 BP 127/85 11/02/20 09:00 Pulse Ox 100 11/02/20 09:00 Intake & Output 11/01/20 11/02/20 11/02/20 18:59 06:59 18:59 Intake Total 762 762 198 Output Total 4000 0 0 Balance -3238 762 198 Weight 86.3 kg Intake: IV 120 120 30 0.9 Normal Saline @ KVO 120 120 30 Tube Feeding 552 552 138 Other 90 90 30 Output: Urine 0 0 0 Hemodialysis 4000 Other: Voiding Method External Catheter # Voids 1 ABP, PAP, CO, CI - Last Documented Arterial Blood Pressure 136/76 - Exam No acute distress, currently not sedated or paralyzed, with a midline tracheostomy tube in place. HEENT examination is grossly unremarkable. Neck supple. Full range of motion. No adenopathy thyromegaly or neck vein distention. Midline tracheostomy tube noted. Cardiovascular examination reveals regular rhythm rate. S1-S2 normal. No S3 or S4. No discernible murmur noted. Heart sounds are distant. Heart rate 107 beats per minute. Lungs reveal diffuse coarse rhonchi and bilateral crackles. No wheezes. Breath sounds equal bilaterally but diminished throughout. Saturations ranged from 96- 99%. Abdomen soft bowel sounds are heard. No masses or tenderness. PEG tube noted. Extremities are intact. No cyanosis clubbing or edema. Skin is without rash or lesion. Neurologic examination is stable. The patient has significant extremity weakness. Neurologic examination is unchanged. - Labs CBC & Chem 7: 11/02/20 04:54 11/02/20 04:54 Labs: Abnormal Lab Results - Last 24 Hours (Table) 11/01/20 11/01/20 11/02/20 Range/Units 11:19 17:29 00:21 RBC (3.80-5.40) m/uL Hgb (11.4-16.0) gm/dL Hct (34.0-46.0) % RDW (11.5-15.5) % Lymphocytes # (1.0-4.8) k/uL Sodium (137-145) mmol/L BUN (7-17) mg/dL Creatinine (0.52-1.04) mg/dL Glucose (74-99) mg/dL POC Glucose (mg/dL) 114 H 178 H 144 H (75-99) mg/dL 11/02/20 11/02/20 11/02/20 Range/Units 04:54 04:54 06:15 RBC 2.54 L (3.80-5.40) m/uL Hgb 7.2 L (11.4-16.0) gm/dL Hct 22.2 L (34.0-46.0) % RDW 16.7 H (11.5-15.5) % Lymphocytes # 0.8 L (1.0-4.8) k/uL Sodium 135 L (137-145) mmol/L BUN 42 H (7-17) mg/dL Creatinine 2.36 H (0.52-1.04) mg/dL Glucose 124 H (74-99) mg/dL POC Glucose (mg/dL) 158 H (75-99) mg/dL Assessment and Plan Assessment: Acute hypoxemic respiratory failure, secondary to COVID 19 pneumonia, with ARDS, with admission to hospital on September 10, transferred to ICU on the , intubation on September 11, and tracheostomy and PEG tube placement on September 18. Acute respiratory distress syndrome (ARDS). Acute kidney injury, currently on hemodialysis. Failure to wean from mechanical ventilator, likely secondary to critical illness polyneuropathy/myopathy. Acute diabetic ketoacidosis, resolved. Sepsis, secondary to COVID 19 pneumonia. Acinetobacter tracheobronchitis as bronchopneumonia, currently on cefepime. Nonsustained ventricular tachycardia. Anion gap metabolic acidosis. Poorly controlled type 2 diabetes. Elevated inflammatory markers secondary to coronavirus infection. History of essential hypertension. Generalized anxiety disorder. Morbid obesity. Plan: Plan dated 10/09/2020. The patient remains on the pressure regulated volume control mode of ventilation. The patient is being nourished at goal. The patient remains on propofol, Nimbex, and fentanyl. In addition, the patient remains on norepinephrine. Labs, x-rays, and medications are all reviewed. Prognosis is very poor. We will continue to follow. Additional recommendations and suggestions are forthcoming. The patient remains on daily hemodialysis. Plan dated 10/10/2020. The patient remains about the same. She remains on the ventilator. The patient is status post tracheostomy and PEG tube placement. She remains sedated with propofol and fentanyl. She is also chemically paralyzed with Nimbex. She remains on norepinephrine at 8.5 mcg/m for low blood pressure. Cultures are all negative. She remains on periodic hemodialysis. Additional recommendations and suggestions are forthcoming. Diagnosis is guarded. We will continue to follow make recommendations where appropriate. Plan dated 10/11/2020. The patient remains on mechanical ventilator. We will attempt to prone the patient today for 16 hours, to improve oxygenation. In addition, the patient is switched from pressure regulated volume control modality to volume assist control. Settings include tidal volume at 325, rate 32, FiO2 70%, PEEP of 14. A repeat blood gas to be done in an hour. Additional recommendations and suggestions are forthcoming. The patient is currently undergoing daily hemodialysis. Prognosis remains very poor. We will continue to follow make recommendations where appropriate. Plan dated 10/12/2020. The patient remains on mechanical ventilator. We'll see for can wean down the Nimbex. This seems like a high-dose to me. He should be doing [id number] monitoring. The patient is receiving hemodialysis today. Saturations are 95 and 96%. Peak airway pressures 41 cm water. Additional recommendations and suggestions are forthcoming. Prognosis is very guarded. She is getting nutrition at goal. The patient does better in terms of her saturations, when she is in the prone position. Today we will place her in the prone position again. Plan dated 10/13/2020. The patient remains on mechanical ventilator. She did not do well yesterday wit h prone because of the tracheostomy cuff leak. Her airway pressures are a bit lower today. She remains on Nimbex, propofol, and fentanyl. She is getting nutrition at goal. Today's blood gases are reasonable. She's currently getting daily hemodialysis. We will continue to follow. Additional recommendations and suggestions are forthcoming. We'll attempt to get the paralysis off. No additional recommendations are made at this time. Plan dated 10/14/2020. The patient remains on mechanical ventilator. Essentially, she's been stable on propofol, fentanyl, and Nimbex. She remains on vital AF at goal. She's been on and off norepinephrine through the night. Labs and x-rays from today are still pending. Vent settings has not changed. We will continue to follow make recommendations where appropriate. Overall prognosis remains very guarded. Plan dated 10/15/2020. The patient remains on the ventilator. She remains on propofol, fentanyl, and Nimbex. She's also on norepinephrine at 6 mg/m. We don't seem to be adequately paralyzing this patient. We will switch to a different paralytic. She did have hemodialysis yesterday. 4 L was removed. She'll have hemodialysis today. Once we have her properly paralyzed, the patient will have a repeat blood gas. I may end up increasing her rate up to 36. Overall prognosis remains very poor. Plan dated 10/30/2020. The patient will begin be placed on pressure support of 15 and CPAP of 5. She apparently did well with the settings late last week. The patient is being nourished at goal. A gases were not done. She remains on cefepime for the Acinetobacter. Overall prognosis remains very poor. The patient has profound weakness, and failure to wean from mechanical ventilation, secondary to critical illness polyneuropathy/myopathy. We are attempting to place the patient. Daily hemodialysis is hampering our efforts. Plan dated 10/31/2020. The patient has been on pressure support and CPAP of 15 and 5, since 2:00 yes terday. The patient appears to be doing well, and, it is stable hemodynamically. We are hoping for discharge tomorrow. No additional recommendations are made. She remains on cefepime for Acinetobacter. She has profound weakness, likely secondary to critical illness polyneuropathy/myopathy. Additional recommendations and suggestions are forthcoming. We will continue to follow make recommendations were appropriate. The patient has now been in the hospital for 51 days. Plan dated 11/01/2020. The chest x-ray from yesterday is reviewed. The patient remains on saline at 10 mL an hour, and vital AF at 46 mL an hour, which is goal. No blood gases today. Labs are reviewed. Currently, the patient's on pressure support of 15 cm water, and CPAP of 5 cm water, beginning at 8:00 this morning. Overnight, she was placed back on the ventilator, on the VC plus modality. She is receiving he modialysis today. We are hoping for a possible discharge to long-term acute care. That has not been decided yet. The patient has been in the hospital for 52 days. We will continue to follow make recommendations where appropriate. Plan dated 11/02/2020. Currently, the patient remains on the VC plus mode of ventilation. Yesterday, she was placed on pressure support and CPAP and did well. She is awake and alert. She my opinion she's ready for discharge to long-term acute care. She's being nourished at goal. She's getting saline at KVO. She had hemodialysis yesterday in 4 L was removed. Chest x-ray stable and unchanged. Blood gases not been done recently. Laboratory data is reviewed. Prognosis is guarded. Additional recommendations and suggestions are forthcoming. The patient has been here in the hospital for now 53 days. Time with Patient: Greater than 30
--- NOTE | 2020-11-02 11:26 | PN ---
PROGRESS NOTE The patient is seen for followup for acute kidney injury. This morning it was reported that patient had about 50 mL of urine. She remains hemodialysis dependent and is scheduled for hemodialysis tomorrow. Patient had 4 L of ultrafiltration yesterday and tolerated it fairly well. PHYSICAL EXAMINATION: On examination today, blood pressure 127/85, heart rate 107 per minute, she is afebrile. Abdomen is soft and nontender. Examination of the lower extremities shows no significant edema. Patient is awake and following commands, comfortable. Moves all four extremities. LABS: Show sodium 135, potassium 4.5, BUN 42, creatinine 2.36. ASSESSMENT: 1. Acute kidney injury ATN, currently oliguric and hemodialysis dependent. Some urine output reported for the 1st time today. We will continue to monitor. In the meantime, patient continues to be hemodialysis dependent. We will plan for treatment tomorrow. 2. Volume overload improved. 3. Anemia multifactorial, currently stable. 4. Acute hypoxic respiratory failure secondary to COVID pneumonia, ARDS and secondary bacterial pneumonia. Maintained on antibiotics. PLAN: Hemodialysis in a.m. UF about 4 L as tolerated. MMODL / IJN: [id number] /
[2020-11-02 12:38] LABS: Glucose,Whole Blood 162 mg/dL (75-99)
[2020-11-02] MEDS: CEFEPIME 1 GM in SODIUM CHLORIDE 0.9% 50 ML IVPB SCH (14:23)
--- NOTE | 2020-11-02 14:43 | P.PN ---
Subjective Progress Note Date: 11/02/20 CHIEF COMPLAINT: COVID-19 pneumonia HISTORY OF PRESENT ILLNESS: Patient is in the ICU for COVID-19 pneumonia and respiratory failure. She is status post tracheostomy and PEG tube placement with Dr. Zhang. Patient is tolerating tube feedings. Her tube feedings are at goal. A she is on CPAP. Patient has no abdominal pain. She is having bowel movements. She denies abdominal pain. Afebrile. WBC 8.3 PHYSICAL EXAM: VITAL SIGNS: Reviewed. GENERAL: Well-developed in no acute distress. HEENT: No sclera icterus. Extraocular movements grossly intact. Moist buccal mucosa. Head is atraumatic, normocephalic. Patient has wound located and skin breakdown at tracheostomy site. The wound is measuring 5.5 x 3 cm. ABDOMEN: Soft. Nondistended. Nontender. PEG tube site clean dry and intact NEUROLOGIC: Awake and opens eyes ASSESSMENT: 1. Acute hypoxic respiratory failure with prolonged mechanical ventilation due to COVID-19 pneumonia status post tracheostomy placement 2. Severe protein calorie malnutrition status post PEG tube placement 3. Pressure wound at tracheostomy site PLAN: -Continue tube feedings -Continue supportive care -Continue ICU management -Continue wound care at tracheostomy site Physician Small Order Cutter note has been reviewed by physician. Signing provider agrees with the documented findings, assessment, and plan of care. Objective - Vital Signs Vital signs: Vital Signs Temp 97.9 F 11/02/20 12:00 Pulse 94 11/02/20 14:00 Resp 18 11/02/20 14:00 BP 145/97 11/02/20 14:00 Pulse Ox 99 11/02/20 14:00 Intake & Output 11/01/20 11/02/20 11/02/20 18:59 06:59 18:59 Intake Total 762 762 508 Output Total 4000 0 0 Balance -3238 762 508 Weight 86.3 kg Intake: IV 120 120 80 0.9 Normal Saline @ KVO 120 120 80 Tube Feeding 552 552 368 Other 90 90 60 Output: Urine 0 0 0 Hemodialysis 4000 Other: Voiding Method External Catheter # Voids 1 ABP, PAP, CO, CI - Last Documented Arterial Blood Pressure 136/76 - Labs CBC & Chem 7: 11/02/20 04:54 11/02/20 04:54 Labs: Abnormal Lab Results - Last 24 Hours (Table) 11/01/20 11/02/20 11/02/20 Range/Units 17:29 00:21 04:54 RBC 2.54 L (3.80-5.40) m/uL Hgb 7.2 L (11.4-16.0) gm/dL Hct 22.2 L (34.0-46.0) % RDW 16.7 H (11.5-15.5) % Lymphocytes # 0.8 L (1.0-4.8) k/uL Sodium (137-145) mmol/L BUN (7-17) mg/dL Creatinine (0.52-1.04) mg/dL Glucose (74-99) mg/dL POC Glucose (mg/dL) 178 H 144 H (75-99) mg/dL 11/02/20 11/02/20 11/02/20 Range/Units 04:54 06:15 12:36 RBC (3.80-5.40) m/uL Hgb (11.4-16.0) gm/dL Hct (34.0-46.0) % RDW (11.5-15.5) % Lymphocytes # (1.0-4.8) k/uL Sodium 135 L (137-145) mmol/L BUN 42 H (7-17) mg/dL Creatinine 2.36 H (0.52-1.04) mg/dL Glucose 124 H (74-99) mg/dL POC Glucose (mg/dL) 158 H 162 H (75-99) mg/dL
[2020-11-02] MEDS: ONDANSETRON 4 MG/2 ML VIAL IVP PRN (15:03)
--- NOTE | 2020-11-02 15:33 | P.PN ---
Subjective Progress Note Date: 11/02/20 HISTORY OF PRESENT ILLNESS 35-year-old female patient of Dr. Arroyo with past medical history of type 2 diabetes comes in with acute shortness of breath associated with high light s ugars. Patient on admission was found to have a fever of 101.5 pulse rate 125 respiratory rate 20. Blood pressure 132/106. On chest x-ray obtained in the ER suggestive of bilateral infiltrates concerning for call with pneumonia. COVID PCR was positive. On admissions patient had an ABG with a pH of 7.14 pCO2 of 20, pO2 of 59, bicarb of 7. Patient's blood sugar on admission was 424 on assessment today patient's blood work patient had a sodium 135 potassium 5.4 chloride 123 bicarb less than 5 and creatinine 0.73. D-dimer was elevated on admission patient 9 28 patient given 1 L of IV fluids followed by normal saline running at 200 mL/h. Patient was positive for acetone on admission. She will anion gap closed and was switched to D5NS. Insulin drip was continued during the night and was switched to patient's home medication this morning. One dose of remdesiver was ordered. Apparently around noon, A- team was called on the patient secondary to hypoxia patient's oxygen saturation dropped to the 70s and 80s on 100% nonrebreather. Patient was switched to BiPAP on 18/12 and is doing better o FiO2 of 80%. ABG was obtained and ph was 7. 14 pCO2 of 28 bicarb of 7 pO2 of 17. Patient noted to have uncompensated metabolic acidosis with compensated respiratory alkalosis. Stat dose of 1 amp bicarb was given and followed by sodium bicarbonate drip. Insulin drip restarted. Patient's initiated on dexamethasone 6 mg IV twice a day. Potassium phosphate ordered as phosphorus is low. Patient's repeat blood gases suggest a pH of 7.25, CO2 32 pO2 of 72 bicarb 14. I will not normal saline at 100 mL/h as patient's anion gap has increased. Patient given 1 dose of 2 mg of morphine with improvement in respiratory rate. One dose of Ativan 0.5 mg was given. Xanax 0.25 twice a day along with Ativan 0.5 IV every 6 hours ordered for the patient. Vitals were evaluated patient pulse 129 [id number]. She was moved to the ICU. Precedex drip was initiated. Lopressor was initiated at 25 twice a day. Metoprolol tartrate 5 mg IV every 6 hours. Systolic blood pressure more than 160. Started chest x-ray was obtained and suggest stable bilateral consolidation suggestive of COVID-19 pneumonia. 09/12 patient is seen in the ICU is currently mechanically ventilated and sedated on vent settings of respiratory rate 36, tidal volume 375 FiO2 80% PEEP of 18.. Vital signs reviewed patient had a temp of 100.4 pulse 150 respiratory rate 36 oxygen saturation 95% on 80% on fio2 .'s labs are reviewed which patient had a d-dimer 1.84 that is increased to 14.3. Arterial Blood gas suggest ph 7.35, CO2 40, po2 62, . Her BMP suggest a sodium 135 potassium 3.7 chloride 112 bicarb 21 creatinine 1.57 for calcitonin is 3.5 CRP is increased from 8.78.2 LDH is increased to 2614. Patient remains on Pneumovax, propofol drip. Lovenox increased to 50 subcu twice a day. Patient received 2 L of IV fluids. Continue IV fluids at 100 mL/h. Bicarb drip discontinued patient initiated on Zosyn 3.375 every 8 hours. Continue insulin drip at 4 units per hour. Patient is currently in prone positioning 09/13: Patient evaluated in the ICU remains on Ventilation continues to be sedated, in prone position. Vent settings are respiratory rate 36, tidal vital 375, FiO2 70% PEEP of 18. ABG shows pO2 of 82, PCO2 of 39, pH is 7.19. Latest labs show WBC 11.1, hemoglobin 13.2, d-dimer still pending, but yesterday was up to 14.3. Creatinine up to 3.4, BUN 24 sodium 137, potassium 4.0. Patient's urine output has been low, nephrology on consult. Bicarb drip increased to 100 miles an hour, receiving another liter of normal saline, she did have a ultrasound that showed unremarkable bilateral kidneys. Repeat chest x-ray showed bilateral lung infiltrates that are stable. Anion gap has closed, will start Lantus 10 units at at bedtime Novolog every 6 hours. 09/14: Patient is seen in the ICU, still currently mechanically ventilated and sedated. She continues in the prone position. Her oxygen quickly drops if she is not in prone. Patient's kidney function has worsened. Laboratory values show creatinine of 4.87, BUN 33, LDH 2191, C-reactive protein 2.7. ABG shows pH 7.32, pO2 of 60, pCO2 43. Patient is making almost no urine overnight. Nephrology is following patient continues on cefepime for urinary tract infection, culture is still pending. Vascular has been consulted for placement of temporary hemodialysis catheter for plans for dialysis. 09/15: Patient evaluated in the ICU, continues to be mechanically ventilated and sedated on assist control ventilation rate of 36, tidal volume 375, FiO2 100% and PEEP of 18. ABG today shows pO2 58, pCO2 of 45, and pH 7.35. She continues on tube feedings. Yesterday patient underwent ultrasound-guided right internal jugular non-tunneled hemodialysis catheter placement. Patient underwent hemodialysis treatment last night and plans have another hemodialysis treatment today. She continues to make almost no urine. She continues on cefepime for antibiotic coverage, and continues on Decadron and Lovenox. 09/16: Patient seen on follow-up remains in the ICU mechanically ventilated and sedated. She continues on assist control rate of 36, tidal volume 375, FiO2 100% and PEEP of 20. PEEP had to be increased due to patient had to be in supine position for dialysis, will go back to prone position once dialysis is complete. ABG shows pH 7.32, pCO2 49, PaO2 61. Laboratory values showed WBC 11.2, hemoglobin 11, sodium 134, creatinine 4.44, BUN 38. Urine culture shows no growth, blood cultures show no growth to date. Repeat chest x-ray shows bilateral pleural effusions, correlate for ARDS, pulmonary edema, diffuse pneumonia, findings are stable from last exam. Patient does not require any pressors, blood pressure 133/57, heart rate 78. 5/16: Patient was evaluated in the ICU today for follow-up. She continues to be intubated and on mechanical ventilation. Current vent settings are tidal volume 375, FiO2 100% and PEEP of 20. ABG shows pH 7.37, pCO2 40, pO2 102. She continues with intermittent prone positioning. Patient continues to have almost no urine output, maintained on dialysis. Patient received dialysis yesterday without complication. Laboratory values revealed WBC 10.3, hemoglobin 10.4, sodium 132, potassium 3.1, BUN 33, creatinine 4.29, LDH 1913, C-reactive protein 1.3. Urine and sputum cultures are negative, blood cultures show no growth to date. Consult placed to dietary to start TPN[ ] 09/18: She remains in the intensive care unit intubated and on mechanical ventilation with tidal volume 375, FiO2 60 and PEEP of 20. Patient is being prone to daily at approximately 16 hours per day. Pulmonary medicine has added in Dr. Zhang to do PEG tube and trach today. Patient is not on vasopressors. Repeat blood work reveals WBC 12.6, hemoglobin 9.8, platelet count 212. Sodium 133, potassium 3.2, chloride 102, CO2 21, BUN 35 and creatinine 4.12. Blood sugar 126. Patient underwent hemodialysis yesterday with removal of 2 L and is scheduled again today with goal of 2-3 L and is scheduled again tomorrow. 09/19: She is scheduled for hemodialysis today and is off fentanyl temporarily. Patient is status post trach and PEG tube yesterday. And she remains on mechanical ventilation. Pulse ox 93-95%. She has been afebrile, heart rate 64, respiratory rate 36, blood pressure 115/50. Fentanyl is off to improve blood pressure for hemodialysis which is scheduled for today. Contacted vascular surgery about permanent hemodialysis catheter. Repeat blood work reveals WBC 14.3, hemoglobin 9.6, platelet count 200. D-dimer 6.48. LDH 1686. C-reactive protein 1.1. BUN 34 creatinine 3.81. Sodium 130, potassium 3.5, chloride 101, CO2 18. Blood sugars running between 101 198. Plan is to wean off Pneumovax today. Patient remains on insulin drip. Repeat chest x-ray reveals bilateral multifocal confluent opacities consistent with COVID-19. Some improved aeratio n periphery of the left lung and worsening opacities throughout the right lung. 09/20: She remains in the intensive care unit on mechanical ventilation. She has been afebrile, heart rate 65, respiratory rate 37, blood pressure 121/70, pulse ox 91-99%. Repeat blood work reveals WBC 14.5, hemoglobin 9.1, platelet count 216. D-dimer 6.13. Sodium 133, potassium 3.1, chloride 102, CO2 18, BUN 35 and creatinine 4.27. Blood sugars running between 128 and 143. LDH 1717. C- reactive protein 1.7. Patient remains on insulin drip which will be transitioned to NovoLog scale every 6 hours. Patient is scheduled for permanent hemodialysis catheter placement today with vascular surgery. Repeat chest x-ray reveals stable diffuse bilateral interstitial and airspace disease. Possible small right effusion. His work is following for transfer to long-term care facility. Do not anticipate discharge until next week. 09/21: Patient is undergoing hemodialysis. She remains on mechanical ventilation with tidal volume 375, FiO2 down to 45 and PEEP was decreased to 15. Patient is continued on propofol, fentanyl drips. She is on tube feedings at goal. Patient was taken off insulin drip yesterday and on scale only but blood sugars are running in the 200s, Levemir scheduled at bedtime will be added. Other blood work reveals WBC 13.3, hemoglobin 8.7, platelet count 192. Sodium 137, potassium 3.6, chloride 107, CO2 18, BUN 34 and creatinine 4.21. Repeat chest x-ray is stable. 09/22: She remains in the intensive care on mechanical ventilation with tidal volume 375, FiO2 of 50 and PEEP of 10. Pulse ox is running 96%. She is afebrile, heart rate in the 50s, respiratory rate 36, blood pressure 100/64. Repeat blood work reveals WBC 16.5, hemoglobin 8.9, platelet count 213. Sodium 134, potassium 3.7, chloride 103, CO2 21, BUN 34 and creatinine 3.89. Blood sugars running in the 200s to 324. Levemir increased to 16 units at bedtime and continue NovoLog scale every 6 hours. Patient is on tube feedings at goal. She has a Haley catheter in with a scant amount of dark/brown urine. Fecal management system is in place. Repeat chest x-ray reveals diffuse bilateral airspace infiltrates persist unchanged. Patient is scheduled for hemodialysis tomorrow morning on Friday. 09/23: Patient remains on mechanical ventilation with tidal volume 3.75, FiO2 50 and PEEP of 10. quality assurance monitor final sinus rhythm. She has no urine output. Fecal management system is in place. She is undergoing dialysis at this time with plan for removal of 2-1/2 L. She has been afebrile, heart rate in the 50s, respiratory rate 36, blood pressure 108/76 and pulse ox 89%. WBC 13.6, hemoglobin 9.1, platelet count 194. Sodium 136, potassium 3.0 and was replaced, chloride 106, CO2 21, BUN 49 creatinine 5.31. Blood sugars are running between 182 and this morning 194. Patient was still in the 200s and 300s. Levemir last evening was increased to 16 units. Patient remains on propofol and fentanyl drips. Lovenox was increased to 60 mg twice daily. 09/24: PEEP was increased today to 20, tidal volume is at 375 and FiO2 of 50%. Patient has been afebrile. She has been started on levo fed. Repeat chest x- ray reveals bilateral multifocal confluent opacities consistent with Covid 19 or ARDS redemonstrated. Nephrology will plan dialysis for tomorrow for 3 L. Patient remains on propofol fentanyl and Nimbex. WBC 12.5, hemoglobin 9.8, platelet count 161. D-dimer 13.3. Sodium 132, potassium 3.4, chloride 102, CO2 20, BUN 48 and creatinine 4.67. Blood sugars extremely elevated to 96-409. LDH 2217. 09/25: Patient remains in the intensive care unit on mechanical ventilation with tidal volume 375, FiO2 50 and PEEP of 20. Patient is afebrile, heart rate 61, respiratory rate 36, blood pressure 102/56, pulse ox 97%. Repeat blood work reveals WBC 9.3, hemoglobin 8.5 and platelet count 171. Sodium 130, potassium 3.7, chloride 100, CO2 20, BUN 61 creatinine 5.65. Blood sugars have been elev ated up to 455. Levemir increased to 20 units twice daily, NovoLog 5 units every 6 hours and continue NovoLog scale. Patient is scheduled for hemodialysis today. Repeat chest x-ray reveals bilateral multifocal and confluent opacities. Decadron and Lovenox dosing change by pulmonary. Patient is off norepinephrine. 09/26: Patient remains in the intensive care unit on mechanical ventilation with tidal volume 375, FiO2 50 and PEEP of 15. She has been afebrile, heart rate 91, blood pressure 114/68, pulse ox 99%. quality assurance monitor final sinus rhythm. 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 Sodium 134, potassium 3.6, chloride 102, CO2 22, BUN 41 creatinine 4.21. Patient has improved blood sugars this morning running 150s and 160s. Diabetic medications were adjusted yesterday. Patient is awake and alert and interacting. Yesterday, patient had PICC line inserted by interventional radiology. Repeat chest x-ray reveals diffuse airspace infiltrates in both lung ann appear to progress slightly in the interval. 09/27: Patient remains in intensive care unit on mechanical ventilation with improvement of settings with tidal volume 375, FiO2 decreased to 40 and PEEP decreased to 10. Patient is on hemodialysis every other day and plan to remove 3 L today. Patient is more awake and alert. She is slow to respond but is able to follow simple commands. Blood sugars are running between 84 and 123. Repeat blood work reveals WBC 7.1, hemoglobin 8.1, platelets 152. Sodium 135, potassium 3.6, chloride 103, CO2 21, BUN 53 and creatinine 5.88. Repeat chest x-ray revealed cardiomegaly and pulmonary edema. Patient is on tube feedings:. Patient is not require vasopressors and is off sedation. Fecal management system remains in place for brown liquid stool. C. difficile was negative. 09/28: Patient remains on mechanical ventilation with tidal volume 375, FiO2 increased to 80 and PEEP increased to 18. Patient had a rough night was very anxious, no pain. Xanax 0.25 mg 3 times daily was added. There is concern for pulmonary embolism for which patient was started on heparin drip, she is unable to undergo CAT scan. Venous Doppler bilateral lower extremities was nondiagnostic due to extensive edema in obese patient but minimal imaging of the popliteal veins does show flow. Repeat echocardiogram has been ordered. Cefepime has also been ordered at 1 g IV piggyback every 24 hours as well as vancomycin, pharmacy dosing. Patient is back on fentanyl drip, propofol drip and norepinephrine. Blood sugars are elevated and insulin Levemir will be i ncreased to 25 mg twice daily. Ferrlecit infusion has been ordered by nephrology for 4 days. Patient is undergoing hemodialysis today.temperature max 100.2, heart rate 134, respiratory rate 34, blood pressure 120/65, pulse ox 94%. quality assurance monitor final is sinus tachycardia. Repeat blood work reveals WBC 16.9, hemoglobin 9.7, platelet count 216. D-dimer 8.81. Sodium 134, potassium 3.8, chloride 99, CO2 25, BUN 43 and creatinine 5.36. Blood sugars in the 200s. AST 40. 09/29 Patient had declined more last 48 hours require more sedation, patient is doing hemodialysis, respiratory failure is quite bit worse this time. Patient was inquired the pain is well back on fentanyl drip. Her vent set up with PEEP is limited but higher. No new finding on culture and her chest x-ray continues shows diffuse infiltrate persistent although there is a moderate interval improvement. 09/30 patient's was seen and evaluated. PEEP was reduced to 11 as patient is maintaining good saturation at the current vent settings. 10/01 patient was seen at bedside. She is currently on assist control rate of 28 white tidal volume 350 FiO2 50% and PEEP of 10 which has been reduced by pulmonary as patient name cleaning her oxygen saturation. Arm blood gas was obtained with a pH of 7.35 pCO2 37 pO2 of 63. She remains hemodynamically stable with no need for pressors. Labs were reviewed patient's BUN is 29 crea tinine 3.93 glucose 122 albumin 2.2 sodium 131 chloride 19 hemoglobin is downtrending with a Hb of 7.3 no leukocytosis 7.1. Patient's urine output is minimal at this time. Her rate has increased to 129 and is currently on positive fluid balance even with dialysis. Last dialysis was done yesterday. Continue enteral feeding currently at goal. Antibiotic has been discontinued and continues to remain on DEXA methicillin 4 mg IV daily. 10/02 patient continues to be on trach support with mechanical ventilation. Patient was evaluated by talent analyst and was switched to VC control as patient was noted to be double stacking on and off throughout the night. Respiratory rate continue to 28 tidal volume increased to 400 with a PEEP for Dr. Downey. Patient is maintaining oxygen saturation 91% on the current setting. According to the nurse bedside patient saturation drops significantly or she is moved or her sedation is dropped. Patient is currently on propofol drip, fentanyl drip. She did underwent dialysis today and was able to maintain her low pressure without the need of pressors. Labs reviewed today suggest a WBC of 6.7 hemoglobin of 7.0 and d-dimer 3.9 bicarb 17 BUN 38 creatinine 4.8. LDH is 964. Sodium 1:30 likely secondary to volume overload. Urine sodium and urine osmolality ordered. Patient's glucose this morning is 146. Continue to remain on enteral feeding. Urine output is reduced. Fall catheter will be placed today. Continue to remain on dialysis. 10/03: Patient remains on mechanical ventilation and is back on propofol and fentanyl drips. Patient is currently on VC control with tidal volume 400, FiO2 55 and PEEP of 12. Patient still is not making any urine and is dialysis dependent with next treatment planned for tomorrow with removal of 3-3-1/2 L. PEG tube feedings are at goal. Fecal management system remains in place. At the time of evaluation, patient is off levophed. Repeat chest x-ray reveals stable diffuse bilateral airspace disease correlate for ARDS, pulmonary edema or diffuse pneumonia. Temperature max last evening was 101. Temperature currently 99, heart rate 106, respiratory rate 32, blood pressure 101/50, pulse ox 86%. Repeat blood work reveals WBC 6, hemoglobin 7.4, platelet count 160. D-dimer 4.05. Sodium 133, potassium 3.5, chloride 100, CO2 23, BUN 31 creatinine 3.8. Blood sugars are running between 100 and 170. Ferritin 1514. Liver function test normal. LDH 1016, C-reactive protein 13.6. Prognosis remains guarded. 10/04: Patient remains intubated on mechanical ventilation with tidal volume 400, FiO2 65, PEEP of 14. Patient continues to run fevers and repeat blood culture and urine and urine culture ordered for today. Haley catheter has been removed this patient has no significant urine output at about 20 mL per shift. BladderScan is monitored for greater than 300 and the patient is straight cathed. Hemoglobin is 6.8 and she has been ordered 41 unit of packed RBCs today. She is currently on propofol and fentanyl drips. She is scheduled for hemodialysis today. WBC 4.5, hemoglobin 6.8, platelet count 151. D-dimer 3.28. Sodium 132, potassium 4.1, chloride 100, CO2 22, BUN 37 creatinine 4.74. Blood sugars running between 97 and 110. Ferritin 1801. LDH 859. C-reactive protein 14.4. Chest x-ray reveals correlate for pneumonia, edema, ARDS. Prognosis remains guarded. 10/05: Patient remains in intensive care unit currently on mechanical ventilation with tidal volume 400, FiO2 was increased to 100 and PEEP is at 14. She continues to run fevers which have worsened with temperature max 103.1. She has been tachycardic in the 130s, blood pressure is marginal but not on vasopressors. Pulse ox currently 92%. Repeat blood work reveals WBC 5.5, hemoglobin 7.6, platelet count 190. D-dimer 2.7, ferritin 1770, LDH 932, C- reactive protein 21.4. Blood sugars are running between 100 1669. Electrolytes are normal. BUN 27 and creatinine 3.79. Pancultures were done yesterday including a straight cath for urine culture, sputum culture and blood culture. Arterial line was removed as well as midline. She is currently on propofol, fen tanyl and started on Nimbex today. 10/06: Patient remains in the intensive care unit. Today patient in prone position and remains on mechanical ventilation with tidal volume 350, FiO2 65 and PEEP of 14. Her last documented fever was yesterday at 2 PM. Heart rate is in the 120s, respiratory rate 32, pulse ox 88-92%. CBC is unremarkable. Electrolytes are normal. BUN 30 creatinine 2.93. Blood sugars are running between 135 and 164. Cultures from October 04: Blood culture no growth, sputum culture finalized, urine culture finalized. Catheter tip culture is in process. Repeat chest x-ray shows bilateral interstitial infiltrates. Patient is on tube feedings of Nepro at goal of 30 ML's per hour. Patient underwent dialysis yesterday and is scheduled for repeat dialysis today. 10/07: Patient maintains in the intensive care unit intubated and on mechanical ventilation. She is receiving hemodialysis this morning has been every day. Plan is to remove 2-1/2 L today. Vent settings have changed today with tidal volume 350, FiO2 was increased to 100% and PEEP remains at 14. She has been continued on Nimbex, fentanyl, norepinephrine and propofol. Plan is to prone position patient following dialysis. Repeat chest x-ray reveals worsening interstitial infiltrates. BUN is 26 and creatinine 2.59. LDH 955, C-reactive protein 22.1. Prognosis remains poor. 10/08: Patient remains in intensive care unit intubated and on mechanical ventilation with tidal volume 350, FiO2 60, PEEP of 14. She is pronating today. She is scheduled for hemodialysis on a daily basis. She has been afebrile, heart rate 112, respiratory rate 36, blood pressure 161/88, pulse ox 93%. Repeat blood work reveals WBC 9.9, hemoglobin 9.1, platelet count 320. Sodium 133, potassium 5.3, chloride 100, CO2 20, BUN 29 creatinine 2.44. Blood sugar running between 102 and 139. LDH 1026, C-reactive protein 19.7. 10/09: Patient is undergoing dialysis this morning. She continues to be intubated and on mechanical ventilation with tidal volume 350, 270 and PEEP of 14. Patient is also on propofol, Nimbex, norepinephrine and fentanyl drips. Repeat chest x-ray reveals persistent bilateral multifocal and confluent opacities consistent with Covid 19. She is afebrile, heart rate 116, respiratory rate 36, blood pressure 120/65, pulse ox 91%. Repeat blood work reveals WBC 5.4, hemoglobin 9.2, platelet count 216. D-dimer 2.67, ferritin 2568, LDH 794, C- reactive protein 13.9. Blood sugars have been running 90-104. Creatinine 1.64. She is on daily dialysis treatment. 10/10: She remains in the intensive care unit. She is now out of isolation as a repeat Covid test came back negative. She remains on mechanical ventilation with tidal volume 350, FiO2 70 and PEEP of 14. Patient is also on Nimbex, propofol, norepinephrine, fentanyl drips. She is on PEG tube feedings at goal and tolerating well. Repeat blood work reveals WBC 7.8, hemoglobin 7.5, platelet count 267. Sodium 139, potassium 3.9, chloride 109, CO2 20, BUN 20 creatinine 1.29. Blood sugars are running between 76 and 102. Scheduled Aiyana Log decreased to 3 units. Repeat chest x-ray reveals moderate cardiomegaly and continued pulmonary edema. Slight interval improvement. Patient is continued on daily hemodialysis. 10/11: Patient remains in intensive care unit on mechanical ventilation with tidal volume 325, FiO2 70, PEEP 14. She is currently being prone. She underwent hemodialysis this morning with removal of 4 L of fluid with plan to continue daily treatment. She is currently on Nimbex, fentanyl and propofol. No vasopressor at this time. Fecal management system remains in place. She is on tube feedings currently at hold due to prone positioning. Patient has been afebrile, heart rate 116, respiratory rate 36, blood pressure 100/58, pulse ox 93-96%. Repeat blood work reveals WBC 9.3, hemoglobin 8.1, platelet count 276. Sodium 136, potassium 4.3, chloride 103, CO2 20, BUN 20 creatinine 1.14. Blood sugars running between 133 and 202. 10/12: Patient remains in the intensive care unit. She is undergoing hemodialy sis this morning. She's been afebrile, heart rate in the 120s, respiratory rate 32, blood pressure 102/65. She is not on vasopressors. She is continued on Nimbex, fentanyl and propofol. Vent settings are currently tidal volume 325, FiO2 70, PEEP 14. Total platelet count 273. Sodium 133, potassium 4.7, chloride 100, CO2 19, BUN 21 creatinine 0.91. Blood sugars running between 121 and 143. 10/13: Patient remain in the ICU she is on hemodialysis daily, she is still on the vent with a PEEP of 14 and FiO2 of 70. Her oxygenation is marginal pulse rate still high. Patient had scratched cornea was seen in ophthalmology decided to keep doing eyedrops along with eye patch at this point. Prognosis still very bad this point. 10/14: She remains on mechanical ventilation with tidal volume 325, FiO2 70% and PEEP of 14. She did require label fed last evening for about 6 hours. She did not tolerate pronating yesterday. She is undergoing dialysis this morning with plan for removal of 4 L. Blood sugars have been low and IV fluids changed to D10 until blood sugars have recovered. Levemir and scheduled NovoLog discontinued. Patient is on tube feedings at goal there's been no change in th is. 10/15 patient remains on mechanical ventilation in the intensive care unit. FiO2 still at 70%, PEEP of 18. Blood sugars have improved since medications were adjusted. White blood cells 33.9, hemoglobin 8.5, sodium 135, BUN 19, creatinine 0.96. Patient to receive dialysis again today. Patient did run a low-grade fever throughout the night and pro calcitonin level is ordered. Chest x-ray showed continued diffuse bilateral airspace disease. Patient remains on tube feedings at goal. 10/16: Patient remains on mechanical ventilation with tidal volume 300, FiO2 70, PEEP of 15. Fecal management system is out. She is currently on low dose of norepinephrine. She is also on fentanyl drip, propofol drip, rocuronium drip. Heart rate is running in the 130s, sinus rhythm, blood pressure 121/63, pulse ox 95%. Patient is been afebrile. Repeat blood work reveals WBC 18.9, hemoglobin 7.5, platelet count 291. Sodium 135, potassium 4.2, chloride 101, CO2 19, BUN 25 and creatinine 1.36. Blood sugars are running between 143 and 199. Patient is on scale insulin only. Repeat chest x-ray reveals persistent bilateral multifocal and completed opacities consistent with Covid 19. 10/17: Patient remains on mechanical ventilation with tidal volume 300, FiO2 50, PEEP of 14. She is currently receiving hemodialysis. The patient is having yellow-colored drainage from the trach site. This is going to be culture today. Repeat blood work reveals WBC of 24, hemoglobin 7.3 and platelet count 310. Sodium 136, potassium 4.1, chloride 101, CO2 19, BUN 24 creatinine 1.43. Blood sugar 139. Capillary blood glucose running 147 and 189. Repeat chest x-ray is unchanged. Patient had increased respiratory rate 40s and 50s with oxygen saturation of 87 and now was increased and Seroquel added this morning. Prognosis remains guarded. 10/18: Patient remains on mechanical ventilation with tidal volume 300, FiO2 60, PEEP has been decreased to 12. Patient will need a PEEP of 8 in order to tra nsfer to long-term care. She is currently on fentanyl drip and Precedex drip. Patient is tracking when her name is stated. She seems to be slightly improved today. Patient has been afebrile, heart rate 106, respiratory rate 32, blood pressure 110/61, pulse ox 98%. Repeat blood work reveals WBC 30.3, hemoglobin 7.2, platelet count 350. Sodium 139, potassium 4.2, chloride 103, CO2 20, BUN 23 creatinine 1.79. Blood sugars are increasing running up 299. Patient will be placed on Levemir. Secretions from tracheotomy sent for culture and in process. She is currently undergoing hemodialysis. 10/23: Patient remains in the intensive care unit on mechanical ventilation with tidal volume 300, FiO2 65 and PEEP of 10. quality assurance monitor final has been in a sinus rhythm. Patient does open her eyes and appears to be tracking. Blood sugars have been elevated. Levemir will be increased to 40 units daily and scheduled NovoLog increased to 12 units and continue NovoLog every 6 hours per scale. Patient is receiving hemodialysis today. She is not currently on vasopressors. Patient is on Precedex drip only. Antibiotics in the form of cefepime were started on October 18. Patient has been afebrile, heart rate 126, respiratory rate 36, blood pressure 163/105. Pulse ox 91%. Repeat blood work reveals WBC 16.0, hemoglobin 7.2, platelet count 208. Electrolytes are within normal limits. BUN 62 and creatinine 2.43. Blood sugars running between 259-321. Most recent blood culture from [facility] 20 is no growth at 24 hours. Repeat chest x-ray reveals cardiomegaly and persistent bilateral pulmonary edema. 10/24: Patient is awake, eyes are open and tracking, she is able to follow simple commands. Severe generalized weakness noted. Precedex gtt has been discontinued. Patient is receiving hemodialysis. Her blood sugars have remained elevated for which Levemir increased to 25 units twice daily along with 15 units of NovoLog every 6 hours along with scale. Tidal volume 330, FiO2 60, PEEP of 8. enterprise account manager and high school social studies teacher following closely. Anticipate possible discharge by the end of next week to long-term care facility. 10/25: Patient remains in the intensive care unit on mechanical ventilation. Tidal volume 350, FiO2 60, PEEP 8. She is receiving hemodialysis this morning. Her heart rate remains elevated in the 130s. Pulmonary as started her on Cardizem at 60 mg 3 times daily which has not had any improved effect. We'll start the patient on Lopressor 25 mg twice daily. Patient has been afebrile, heart rate respiratory rate 32, blood pressure 151/91, pulse ox 98%. Patient is been transfuse 1 unit of packed RBCs today. Patient's mental status is improving and patient is able to follow simple commands. WBC 12.2, hemoglobin 6.3, platelet count 196. Sodium 135 otherwise looked lites are normal, BUN 48 creatinine 1.99. Blood sugars are running between 120 and 172. Levemir has been increased to 30 mg twice daily continue 15 units of NovoLog every 6 hours with scale. 10/26: Patient remains in intensive care unit, on mechanical ventilation with tidal volume 375, FiO2 50, PEEP of 8. Patient's heart rate remains elevated 120s and Lopressor increased to 50 mg twice daily. Patient seems to be quite anxious and depressed. We will decrease Seroquel to 50 mg twice daily and start patient on Lexapro. Patient received her first dose of Xanax this morning but this did not seem to help heart rate either. She has been afebrile, heart rate 128, blood pressure 149/79, pulse ox 93%. Repeat hemoglobin 7.3. Sodium 135, potassium 3.9, chloride 90, CO2 30, BUN 45 and creatinine 1.94. Blood sugar are improved running between 117-194. We will make further adjustments to insulin and to increase long-acting to 35 units twice daily and decrease NovoLog scheduled to 7 units and continue NovoLog scale. There are problems with patient's trach and consequently placed with [facility]. General surgery to reevaluate trach. 10/27: Patient is complaining of nausea today. Concerned that this is related to Lexapro. We will further decrease Seroquel to 50 mg at bedtime. Patient is being bladder scanned and last bladder scan wasn't 125 mL. She does not have Haley catheter. No fecal management system. She is having a bowel movement about 3 per day. Plan is for CPAP trial today. She is currently on mechanical ventilation with tidal volume 375, FiO2 50 and PEEP of 8. She has been afebrile, heart rate 105 which is much improved from the last few days. Blood pressure 145/88, pulse ox 94%. There is a new consult in place for Dr. Clemente regarding exchanging the trach and possible debridement at site. WBC 11.4, hemoglobin 8.2, blood count 218. Sodium 136, potassium 4.1, chloride 97, CO2 31, BUN 47 creatinine 1.97. Blood sugars running between 129 and 204. We have changed long acting insulin to 35 units twice daily and continue NovoLog 7 units every 6 hours and scale every 6 hours. Nephrology may be decreasing frequency of dialysis treatments. Anticipate probable discharge to long-term care next week. 10/28: Patient was complaining of nausea today which has resolved. CPAP trial will continue today. She is currently on mechanical ventilation with a tidal volume 375, FiO2 of 50, PEEP of 8. She is afebrile, heart rate 108 which continues to show improvement. Blood pressure 133/87, pulse ox 99%. Patient is able to follow commands. And answers appropriately with nodding her head. WBC 10.5, hemoglobin 8.0, potassium 4.6, BUN 46, creatinine 1.96. Patient is currently receiving hemodialysis. 10/29: Patient was found sitting up in bed. Able to answer some questions appropriately. Utilizing kim. Able to follow commands. Ann over elevated blood sugars. Levemir 35 units twice a day will continue at this with a 7 unit coverage. Patient remains afebrile. Heart rate 102, respirations 29, blood pressure 124/74, pulse ox 97% on mechanical ventilation. Mechanical ventilation settings with a tidal volume 375, FiO2 of 50 and a PEEP of 8. Family has been into see patient. Hemodialysis will be held today. 10/30: Patient remains in the ICU on mechanical ventilation. She is not requiring pressure support. She is on CPAP support. She is receiving hemodialysis this morning with plan to start a Friday schedule this week. Blood sugars are stable and running between 140 and 184. She is on tube feedings at goal and having bowel movements every 12 hours. Repeat blood work reveals WBC 8.9, hemoglobin 10.2, platelet count 258. Sodium 133, potassium 5.0, chloride 97, CO2 23, BUN 69 creatinine 2.67. 10/31: Patient is seen today in intensive care unit. She remains on mechanical ventilation with tidal volume 375, FiO2 45 of PEEP of 5. Patient is found sitting in a chair working with physical therapy. Patient is noted to have left arm weakness without pain and good sensation. She is not receiving dialysis today and will be started on Friday regime. Patient's heart rate is better controlled in the 80s, blood pressure 113/65, pulse ox 99%. Patient is been afebrile. Patient has been on cefepime. Repeat blood work reveals WBC 9.3, hemoglobin 6.9 and patient is transfused 1 unit of packed RBCs today. Platelet count 248. Electrolytes are within normal range, BUN 38 and creatinine 2.04. Her blood glucose running between 130 and 193. AST 38. Social work is working with the daughter regarding discharge planning. 11/01: A she was undergoing dialysis with plan for 3 L removed today and dialysis is scheduled Friday. She is in bed and appears to be comfortable. She is able to talk and express herself and is cognitively intact. She remains on mechanical ventilation. She has been afebrile, heart rate 107, blood pressure 115/85, pulse ox 99%. Repeat blood work reveals WBC 8.5, hemoglobin 7.5, platelet count 278. Sodium 136, potassium 4.8, chloride 100, CO2 27, BUN 55 creatinine 2.81. Blood sugar running between 114 and 185. Ca lcium 10.3, total bilirubin 0.2, AST 34, ALT 34, alkaline phosphatase 144. Social work is working on discharge planning which will be to [facility], [facility] or [facility]. 11/02: Patient remains in the intensive care unit on mechanical ventilation with tidal volume 375, FiO2 40, PEEP of 5. Patient's mental status continues to be improved. She has been afebrile, heart rate 97, blood pressure 144/86, pulse ox 98%. Repeat blood work reveals WBC 8.3, hemoglobin 7.2, platelet count 255. Sodium 135, potassium 4.5, chloride 98, CO2 20, BUN 42 and creatinine 2.36. Blood sugars are running between 124 278. She is scheduled for hemodialysis tomorrow with plan for 4 L to be removed. Social work is working on discharge plan and once patient has been accepted and insurance authorization is obtained if needed, patient will be discharged. REVIEW OF SYSTEMS Constitutional: No fever, no chills, no night sweats. No weight change. Profound weakness, + significant fatigue no lethargy. Reported daytime sleepiness. EENT: No headache. No loss of vision. No loss of Hearing. No nasal drainage or congestion. No epistaxis. No sore throat. Lungs: No shortness of breath, cough, no sputum production. No wheezing. Cardiovascular: No chest pain, no lower extremity edema. No palpitations. No paroxysmal nocturnal dyspnea. No orthopnea. No lightheadedness or dizziness. No syncopal episodes. Abdominal: No abdominal pain. No nausea, vomiting. No diarrhea. No constipation. No bloody or tarry stools. loss of appetite- peg tube. Genitourinary: No dysuria, increased frequency, urgency. No urinary retention. Minimal urine production Musculoskeletal: No myalgias. Noted muscle weakness, noted gait dysfunction, no frequent falls. No back pain. No neck pain. Integumentary: Positive wounds, no lesions. No rash or pruritus. No unusual bruising. No change in hair or nails. Neurologic: No aphasia. No facial droop. Noted change in mentation-improved. No head injury. No headache. No paralysis. No paresthesia. Psychiatric: suspected depression. positive anxiety. Endocrine: Noted abnormal blood sugars-stable and monitored. PHYSICAL EXAMINATION Gen: This is is a 35-year-old black female, patient is on mechanical ventilation, and sitting in ICU bed undergoing HD. HEENT: Head is atraumatic, normocephalic. Pupils equal, round. Sclerae is anicteric. Eyes are open and tracking. Tracheostomy midline. NECK: Supple. No JVD. No lymphadenopathy. No thyromegaly. LUNGS: Lung sounds are clear to auscultation. No intercostal retractions. HEART: Regular rate and rhythm. No murmur. quality assurance monitor final sinus tachycardia. ABDOMEN: Soft. Bowel sounds are present. No masses. No tenderness. EXTREMITIES: Trace bilateral pedal edema. No calf tenderness. NEUROLOGICAL: Patient is awake, alert, oriented and able to follow commands, significant weakness. ASSESSMENT AND PLAN 1. Acute hypoxic respiratory failure secondary to Covid 19 pneumonia and possible bacterial pneumonia. Patient was intubated on September 11. She is status post 1 dose of Remdesivir and 1 dose of Tocilizumab. Continue Ventolin inhaler 4 times daily, Lovenox 30 mg subcu daily, supplements. Status post PEG tube and trach. Continue cefepime. 2. Acute diabetic ketoacidosis secondary to Covid 19 pneumonia, uncontrolled with hyperglycemia. Levemir increased to 35 units twice daily and scheduled NovoLog increased to 7 units every 6 hours and continue NovoLog scale every 6 hours. 3. Metabolic encephalopathy secondary to Covid 19 and DKA. 4. Sepsis and septic shock secondary to Covid 19 pneumonia with multiorgan failure. Continue as in #1. Trach drainage cultured. General surgery on consult. 5. Acute metabolic acidosis secondary to acute DKA, Covid 19 and acute kidney injury. Renvela 1600 mg q6h. 6. Diabetes mellitus type 2 uncontrolled with A1c 13.6. Continue as above. 7. Hypophosphatemia status post replacement. 8. Hyperkalemia secondary to DKA, resolved. 9. Sinus tachycardia secondary to sepsis, volume deficiency. Patient is on Cardizem 60 mg 3 times daily, and Lopressor 50 mg twice daily. 10. Acute kidney injury secondary to ATN secondary to Covid 19 and DKA. Continue hemodialysis on Friday. Permanent dialysis catheter placed. 11. Possible acute gram-negative pneumonia versus MRSA pneumonia. Completed course of antibiotics. 12. Hypertension. 13. Morbid obesity with BMI of 53. 14. Situational depression and anxiety. Seroquel decreased to 50 mgat bedtime, continue Lexapro 10 mg daily and Xanax 0.25 mg twice daily as needed. 15. DVT prophylaxis. Lovenox. 16. GI prophylaxis. Protonix 40 mg IV push daily. 17. Stage IV pressure ulcer to trach site. Currently utilizing absorptive silver dressing. 18. Stage II decubitus ulcer to coccyx. 19. Critical illness polyneuropathy and myopathy. Continue physical therapy. 20. Anemia of chronic disease. Transfuse 1 unit of packed RBCs, continue Ar anesp 40 g every 7 days. CODE STATUS: Full code Prognosis guarded. DISCHARGE PLAN Social work is working to find long-term care facility that will accept the patient on a ventilator. Impression and plan of care have been directed as dictated by the signing physician. Kimberly Boswell nurse practitioner acting as scribe for signing physician. Objective - Vital Signs Vital signs: Vital Signs Temp 98.2 F 11/02/20 08:00 Pulse 108 H 11/02/20 10:00 Resp 32 H 11/02/20 10:00 BP 139/94 11/02/20 10:00 Pulse Ox 98 11/02/20 10:00 Intake & Output 11/01/20 11/02/20 11/02/20 18:59 06:59 18:59 Intake Total 762 762 198 Output Total 4000 0 0 Balance -3238 762 198 Weight 86.3 kg Intake: IV 120 120 30 0.9 Normal Saline @ KVO 120 120 30 Tube Feeding 552 552 138 Other 90 90 30 Output: Urine 0 0 0 Hemodialysis 4000 Other: Voiding Method External Catheter # Voids 1 ABP, PAP, CO, CI - Last Documented Arterial Blood Pressure 136/76 - Labs CBC & Chem 7: 11/02/20 04:54 11/02/20 04:54 Labs: Abnormal Lab Results - Last 24 Hours (Table) 11/01/20 11/01/20 11/02/20 Range/Units 11:19 17:29 00:21 RBC (3.80-5.40) m/uL Hgb (11.4-16.0) gm/dL Hct (34.0-46.0) % RDW (11.5-15.5) % Lymphocytes # (1.0-4.8) k/uL Sodium (137-145) mmol/L BUN (7-17) mg/dL Creatinine (0.52-1.04) mg/dL Glucose (74-99) mg/dL POC Glucose (mg/dL) 114 H 178 H 144 H (75-99) mg/dL 11/02/20 11/02/20 11/02/20 Range/Units 04:54 04:54 06:15 RBC 2.54 L (3.80-5.40) m/uL Hgb 7.2 L (11.4-16.0) gm/dL Hct 22.2 L (34.0-46.0) % RDW 16.7 H (11.5-15.5) % Lymphocytes # 0.8 L (1.0-4.8) k/uL Sodium 135 L (137-145) mmol/L BUN 42 H (7-17) mg/dL Creatinine 2.36 H (0.52-1.04) mg/dL Glucose 124 H (74-99) mg/dL POC Glucose (mg/dL) 158 H (75-99) mg/dL
[2020-11-02 18:29] LABS: Glucose,Whole Blood 143 mg/dL (75-99)
[2020-11-02] MEDS: QUEtiapine 50 MG TAB PO SCH (20:58)
[2020-11-03 00:02] LABS: Glucose,Whole Blood 164 mg/dL (75-99)
[2020-11-03] MEDS: SEVELAMER 800 MG TAB PO SCH ×4 (00:04→18:40)
[2020-11-03] MEDS: NYSTATIN 100,000 UNIT/ML SUSP 500,000 UNIT/5 ML CUP PO SCH ×4 (00:04→18:40)
[2020-11-03] MEDS: INSULIN ASPART (NovoLOG) 100 UNIT/ML VIAL SQ SCH ×8 (00:04→18:41)
[2020-11-03] MEDS: HYDROmorphone 0.5 MG/0.5 ML SYRINGE IVP PRN ×7 (00:19→21:31)
[2020-11-03] MEDS: ACETAMINOPHEN TAB 325 MG TAB PO PRN (00:49)
[2020-11-03] MEDS: diphenhydrAMINE 50 MG/ML 1 ML VIAL IVP PRN ×3 (02:18→22:41)
[2020-11-03 04:58] LABS: Anisocytosis Slight; HCT 22.6 % (34.0-46.0); Hypochromasia Marked; MCHC 30.6 g/dL (31.0-37.0); MCV 88.5 fL (80.0-100.0); Mean Platelet Volume 8.6; Platelet Count 255 k/uL (150-450); Poikilocytosis Slight; RBC 2.56 m/uL (3.80-5.40); RDW 16.3 % (11.5-15.5); WBC 7.5 k/uL (3.8-10.6)
[2020-11-03 05:12] LABS: Calcium 10.1 mg/dL (8.4-10.2); Potassium 5.1 mmol/L (3.5-5.1); Total Bilirubin 0.2 mg/dL (0.2-1.3); Total Protein 5.6 g/dL (6.3-8.2)
[2020-11-03 05:37] LABS: HGB 6.9 gm/dL (11.4-16.0)
[2020-11-03 06:17] LABS: Glucose,Whole Blood 160 mg/dL (75-99)
[2020-11-03] MEDS: INSULIN DETEMIR (LEVEMIR) 100 UNIT/ML SYR SQ SCH ×2 (06:20→21:31)
[2020-11-03] MEDS: CHLORHEXIDINE GLUCONATE 15 ML CUP MUCOUS MEM SCH ×2 (08:53→21:31)
[2020-11-03] MEDS: PANTOPRAZOLE 40 MG/10 ML VIAL IVP SCH ×2 (08:53→21:31)
[2020-11-03] MEDS: DILTIAZEM ORAL 60 MG TAB PO SCH ×3 (08:54→21:31)
[2020-11-03] MEDS: ENOXAPARIN 30 MG/0.3 ML SYRINGE SQ SCH (08:54)
[2020-11-03] MEDS: METOPROLOL TARTRATE 50 MG TAB PO SCH ×2 (08:54→21:31)
[2020-11-03] MEDS: HYDROPHILIC CREAM 180 GM TUBE TOPICAL SCH (08:56)
[2020-11-03] MEDS: NYSTATIN 100,000 UNIT/GM POWD 15 GM TOPICAL SCH ×3 (08:56→21:32)
[2020-11-03] MEDS: ALBUTEROL HFA INHALER INHALATION SCH ×4 (09:15→20:30)
--- NOTE | 2020-11-03 10:48 | P.PN ---
Subjective Progress Note Date: 11/03/20 Principal diagnosis: Acute respiratory failure secondary to Covid 19 pneumonia. Patient was reevaluated today on 10/05/2020, remains in the ICU, intubated, mechanically ventilated, patient is doing worse today compared to the last few days, her chest x-ray is worsening, her O2 requirement is rising and she is back on the percent FiO2, I have also increased her PEEP to 16, assist control rate was increased to 52, FiO2 is on the percent. ABG earlier today on 70% FiO2 showed a pO2 of 56 pCO2 of 50 pH of 7.32. She was on assist control rate of 28 tidal volume of 400 FiO2 70% and PEEP of 14. Patient had to be placed on a higher dose of propofol which was increased to 70 fentanyl is at 2 mcg/kg/m, patient will be placed on Nimbex as I'm having difficulty oxygenating the pat ient in spite of high FiO2. She is scheduled to undergo hemodialysis again today, she had 4 L off yesterday. Remains on tube feeds using vital AF at 30 MLS per hour. Patient is tachycardic rate is 129, blood pressure is marginal 86/45, hence may recommend adding norepinephrine. The overall picture clearly showing deterioration in this patient's clinical status, and I have a feeling that this patient will continue to do poorly and she is now maximized on treatment. Again her chest x-ray is showing significant worsening of her infiltrates. Patient was reevaluated today on 10/06/2020, remains in the ICU, intubated and mechanically ventilated, and she is presently in prone position since last night for the next few hours until dialysis which is supposed to start sometime in the next couple of hours. Patient remains on assist control mode of mechanical ventilation, it is volume control with volume of 350 rate of 3 to FiO2 65%. 14. Her ABG showed a pO2 of 68 pCO2 of 52 pH of 7.28. Patient remains on propofol at 75 fentanyl at 3 mcg/kg/h she is also on norepinephrine at 0.02 and Nimbex at 3 mcg/kg/m. Patient is scheduled to have hemodialysis today. Chest x-ray continues to show evidence of bilateral interstitial infiltrates. Patient is on enteral feeding in the form of Nepro at 30/30. Patient has been proned now for the last 17 hours. Electrolytes are normal however her BUN is 30 creatinine 2.93. Blood sugar is 147 WBC count is 5.1 hemoglobin is 11.4. Patient remains on the COVID-19 cocktail. Remains on albuterol, Symbicort, Decadron 4 mg IV push daily, Lovenox 30 mg subcu daily. Insulin protocol. Her tonic 40 mg IV push daily. Off antibiotics. Patient was reevaluated today on 10/07/2020, remains in the ICU, intubated and mechanically ventilated, presently receiving hemodialysis. She is on assist control rate of 32, tidal volume of 350, FiO2 is up to on the percent today, and PEEP of 14. Higher PEEP did not seem to help much, hence I kept her on a PEEP of 14. ABG today showed a pO2 of 63 pCO2 53 pH of 7.25. A shunt is on Nimbex at 4 mcg/kg/m, fentanyl 3 mcg/kg/h, norepinephrine at 0.07 mcg/kg/m, propofol at 75 mcg/kg/m. Again the patient is receiving hemodialysis, and I have instructed the nurses today to go back into prone position after she is done with dialysis. Chest x-ray continues to show worsening interstitial infiltrates and ARDS pic ture. Labs were all reviewed. Her medications were all reviewed today. Basic metabolic profile is normal BUN is 26 creatinine 2.59. LDH is 955 and C- reactive protein is 22.1. Not much of a change in the last few days. Patient was reevaluated today on 10/08/2020, remains in the ICU, intubated and mechanically ventilated, patient is presently in prone position her ABG this morning showed significant improvement in her oxygenation, however continues to have a combined metabolic and respiratory acidosis. She is now on assist control of 350 rate of 36 FiO2 down to 60% PEEP at 14. ABG on 100% showed a pO2 of 209 pCO2 of 59 pH of 7.15. Her assist control rate was increased to 36. Kept her on the same tidal volume of 350. 2 A of bicarb were given. Patient is also on bicarb drip. Patient remains on propofol at 75 mcg/kg/m, she is on Nimbex at 4 mcg/kg/m, and norepinephrine at 0.01 mcg/kg/m. Patient is also on fentanyl at 3 mcg/kg per hour. During my evaluation, the patient was in prone position, however should be placed back in supine position once dialysis is ready and the patient will be dialyzed again today. Chest x-ray from yesterday continues to show evidence of interstitial edema and ARDS. No chest x-ray has been done yet today because the patient was in prone position. Patient remains on Decadron, remains on Lovenox, she is off antibiotics for now. CBC showed WBC 9.9 hemoglobin is 9.1. Hematocrit is 28.7. Electrodes are normal. BUN is 29 and creatinine 2.44. Bicarb is 20. LDH is up a bit 1026, C-reactive protein is about the same at 19.7. Progress note dated 10/09/2020. This is a 35-year-old black female with history of acute COVID 19 infection, with acute hypoxemic respiratory failure. She was admitted way back on September 10. Because of failure to wean from mechanical ventilation, she underwent tracheostomy and PEG tube placement on September 18. Currently remains on the ventilator. She is on the VC + (PRVC) modality, with a targeted tidal volume 350 and inspiratory time of 0.9 seconds. Her rate is set at 36. FiO2 70%, and PEEP of 14. On those settings, her arterial blood gases show a PaO2 of 72, pCO2 47, and pH 7.23. Currently, the patient's getting daily hemodialysis. Her drips including propofol at 75 mcg/kg/m, Nimbex at 3.5 mcg/kg/m, with [id number] monitoring, fentanyl at 3 g kilogram per hour, norepinephrine at 7 mcg/m, saline at 20 mL an hour, and vital 1.2 at 10 mL an hour, which is goal. White count 5.4, hemoglobin 9.2, hematocrit 28.8, and platelet count 217,000. Sodium 137, potassium 4.2, chlorides 108, CO2 19, anion gap 10, BUN 22, and creatinine 1.64. The patient's chest x-ray is consistent with bilateral infilt rates, and is essentially unchanged, and consistent with a diagnosis of coronavirus pneumonia. Progress note dated 10/10/2020. 35-year-old black female, with a history of COVID 19 infection and acute hypoxemic respiratory failure. She was admitted way back on September 10. Because of failure to wean from mechanical ventilation, she underwent tracheostomy and PEG tube placement on September 18. She remains on the mechanical ventilator. She is on the pressure regulated volume control modality. Her targeted tidal volume is 350 mL, and her inspiratory time 0.9 seconds. The patient's on 70% FiO2, PEEP o f 14, with a rate of 36. The patient is receiving Nimbex at 4.5 mcg/kg/m, propofol at 65 mcg/kg/m, norepinephrine at 3.5 mcg/m, fentanyl at 2.5 mcg/kg/h, and vital AF 1.2 at 10 mL an hour which is goal. The patient's blood gases from this morning show a PaO2 of 79, 5, and a pH is 7.29. Today's chest x-ray is currently still pending. Overnight, there've been no major changes in her condition. White count 7.8, hemoglobin 7.5, hematocrit 23.1, and platelet count 267,000. Sodium 139, potassium 3.9, chlorides 109, CO2 20, anion gap 10, BUN 20, with creatinine 1.29. Progress note dated 10/11/2020. 35-year-old black female with a history of COVID 19 infection and acute hypoxemic respiratory failure. She was admitted back on September 10. Because of failure to wean from mechanical ventilation, she underwent tracheostomy and PEG tube placement on September 18. She remains on the mechanical ventilator to this day. Currently, she is on pressure regulated [place] control, with a targeted tidal volume of 350, inspiratory time of 0.9 seconds, FiO2 70%, PEEP of 14, and a rate of 36. Her blood gases show a PaO2 of 74, pCO2 46, pH 7.28. In an attempt to reduce the FiO2, I was going to go up on the PEEP, but I was reminded that the patient has a issue with high airway pressures, potentially causing airway and alveolar trauma. For that reason, I will switch her to volume assist control modality, with a tidal volume at 325, rate 32, FiO2 70%, and PEEP of 14. This will cause permissive hypercapnic ventilation. I'm okay with this, and I will except a pH of 7.15 or higher. He blood gas will be done in one hour. The patient has daily hemodialysis. We will attempt to prone the patient for 16 hours today. She apparently does well with that modality. Currently, she is on saline at KVO, propofol at 65 mcg/kg/m, fentanyl at 2.5 mcg/kg/h, Nimbex at 3.5 mcg/kg/m, and norepinephrine has been weaned off. She is getting vital AF, at 10 mL an hour, which is goal. Over the last 3 days, since I've been seeing her, there is not been much in the way of progress. White count 9.3, hemoglobin 8.1, hematocrit 26.4, platelet count 276,000. Sodium 136, potassium 4.3, chlorides 103, CO2 20, anion gap 13, BUN and creatinine were 20 and 1.14. Chest x-ray today shows improvement of volume status. Progress note dated 10/12/2020. 35-year-old black female again seen in the intensive care unit, room 265. She has a history of coronavirus pneumonia with acute hypoxemic respiratory failure. She was admitted way back on September 10. She ended up with a tracheostomy and PEG tube placement on September 18 for failure to wean from mechanical ventilation. She remains on the ventilator. She is on volume assist control mode rate of 32, tidal volume 325, FiO2 70%, PEEP of 14. Arterial blood gases show pO2 of 54, pCO2 60, pH is 7.17. She's getting hemodialysis today. Peak airway pressures about 21 cm water. He is getting propofol at 75 mcg/kg/m, fentanyl at 3.5 mcg/kg/h, Nimbex at 7 mcg/kg/m, and saline at KVO. Her tube feeds include vital AF at 10 mL an hour, which is goal. She currently tested negative for coronavirus. She is getting hemodialysis today. Chest x-rays essentially unchanged. White count 10.4, he will May 0.1, hematocrit 25.9, platelet count 273,000. Sodium 133, potassium 4.7, chlorides 100, CO2 19, anion gap 14, BUN and creatinine were 21 and 0.91. This electrolyte profile consistent with an anion gap metabolic acidosis. Saturations currently are 95%. Medications are reviewed. Progress note dated 10/13/2020. 35-year-old black female, seen again in the ICU, room 265. She has a history of coronavirus pneumonia with acute hypoxemic respiratory failure. She was admitted to this hospital on the . She ended up with a tracheostomy and PEG tube being placed on September 18 for failure to wean from mechanical ventilation. She remains on mechanical ventilator. Currently, she is on the volume assist control mode, rate 32, tidal volume 325, FiO2 70%, PEEP of 14. Arterial blood gases show pO2 70, pCO2 of 56, and a pH is 7.26. The patient is currently also on Nimbex at 2.5 mcg/kg/m with train of 4 monitoring, propofol at 50 mcg/kg/m, and fentanyl at 2 mcg/kg/h. The patient's also getting vital AF and 10 mL an hour, which is goal. The patient's airway pressures today are a bit better. Her peak airway pressures are in the low 40s. While she was being prone yesterday, there was a significant cuff leak. Hence, she had be placed in the supine position. White count 14.2, hemoglobin 8.3, hematocrit 26.4, and platelet count 285,000. Sodium 134, potassium 4, chlorides 99, CO2 23, anion gap 12, BUN 21, and creatinine 0.70. Microbiology is all negative. Chest x-ray continues to show diffuse bilateral infiltrates. Progress note dated 10/14/2020. 35-year-old black female seen again in room 265. She has a history of coronavirus pneumonia with acute hypoxemic respiratory failure. She was admitted to the hospital on September 10. She ended up with a tracheostomy and PEG tube being placed on September 18 for failure to wean from mechanical ventilation. Roslyn oconnor remains on the ventilator. Currently, she is on volume assist control mode, rate 32, tidal volume 325, FiO2 70%, and PEEP of 14. She's receiving propofol 60 mcg/kg/m, fentanyl at 3 mcg/kg/h, and Nimbex at 7 mcg/kg/m. The patient is also receiving saline at 20 mL an hour. She's been on and off of norepinephrine area and currently is on hold. She is also receiving vital AF at 10 mL an hour which is goal. Laboratory data from today is not yet available. From October 13, white count 14.2, hemoglobin 8.3, and platelet count was normal. Also, blood gases from yesterday show pO2 70, pCO2 of 56, and pH is 7.26. Electrolytes are essentially within normal range. Chest x-ray from yesterday continues to show bilateral infiltrates, without much change. Progress note dated 10/15/2020. 35-year-old black female, again seen in room 265. She has a history of coronavirus pneumonia, with acute hypoxemic respiratory failure. She was admitted to the hospital back on September 10. She ended up with a tracheostomy and PEG tube being placed on September 18 for failure to wean from mechanical ventilation. She's been in the hospital now for 35 days. Currently remains on the ventilator. She's on the volume assist control mode, rate 32, tidal volume 325, FiO2 70%, EPAP of 18. Blood gases show pO2 of 80, pCO2 61, pH is 7.15. The patient will have hemodialysis today. Yesterday, hemodialysis was done, and 4 L was removed. The patient is currently on propofol at 70 mcg/kg/m, fentanyl at 3 mcg/kg/h, Nimbex at 8 mcg/kg/m, no epinephrine at 6 mg/m, 0.9 at 10 mL an hour, and vital AF at 10 mL an hour which is goal. Unfortunately, she is twitching 4 out of 4 on the Nimbex at the current dose, and we will switch her to rocuronium at 5 mcg/kg/m. We'll titrate accordingly, and monitor the patient with [id number] testing. Current laboratory data includes a white count of 33.9, hemoglobin 8.5, hematocrit 26.4, and platelet count 367,000. Sodium 135, potassium 4.5, chlorides 100, CO2 21, anion gap 14, BUN 19, creatinine 0.96. Microbiologic data is all negative. Progress note dated 10/30/2020. 35-year-old black female, who is now been in the hospital for 50 days. The patient was admitted back on September 10. The patient underwent tracheostomy and PEG tube placement on September 18, for chronic respiratory failure, failure to wean from mechanical ventilation, secondary to severe coronavirus pneumonia and hypoxemia. She remains on mechanical ventilator. She is on the VC plus mode, with a targ eted tidal volume of 375, and inspiratory time of 0.9 seconds. The rate of 32, FiO2 45%, and PEEP of 6. Blood gases were not done today. She remains on saline at 10 mL an hour, and vital AF at 46 mL an hour, which is goal. We will attempt to place her on some pressure support and CPAP. We'll use settings of 15/5. She did very well with that last week. Currently, she remains on cefepime. A white count 8.9, hemoglobin 7.2, hematocrit 21.9, and a normal platelet count. Sodium 133, potassium 5, chlorides 97, CO2 23, anion gap is 13, BUN 69, and creatinine 2.67. One of the discharge issues, as the patient is currently still on daily hemodialysis. No chest x-ray today. Progress note dated 10/31/2020. 35-year-old black female, who is now been in the hospital for 51 days. The patient was admitted back on September 10. She underwent tracheostomy and PEG tube placement on September 18 for chronic respiratory failure with failure to wean from the chemical ventilation, secondary to severe coronavirus pneumonia and hypoxemia. Yesterday, she was on the VC plus mode. Currently, suggested a, she 's been on pressure support of 15, and CPAP of 5. When on VC plus, she has a targeted tidal volume of 375, respiratory rate of 32, inspiratory time of 0.9 seconds, FiO2 45%, and PEEP of 5. Blood gases, done on pressure support, show pO2 of 76, pCO2 47, and pH 7.38. The patient's on saline at 10 mL an hour, and vital AF at 46, which is goal. White count 9.3, hemoglobin 6.9, hematocrit 21.6, platelet count 248,000. Sodium potassium chloride CO2 all normal. Anion gap 7, BUN and creatinine were 38 and 2.04. Today's chest x-ray is stable. Progress note dated 11/01/2020. 35-year-old white female, who is been in the hospital for 52 days. She was admitted back on 09/10/2020. She was admitted with a diagnosis of acute hypoxemic respiratory failure secondary to coronavirus pneumonia. She underwent tracheostomy and PEG tube placement on September 18, for failure to wean from mechanical ventilation. Currently, the patient's on pressure support of 15 cm water, and CPAP of 5 cm water. When she is not on these settings, she is on the VC plus modality. No blood gases today. She's getting saline at 10 mL an hour. Getting vital AF at 46 mL now which is goal. She is receiving hemodialysis today. We are hoping, the patient can be transferred to a long-term acute care facility. That still not decided as yet. White count 8.5, hemoglobin 7.5, hematocrit 23.6, and platelet count 278,000. Sodium 136, potassium 4.8, chlorides 100, CO2 27, anion gap 9, BUN 55, creatinine 2.81. Chest x-ray from yesterday shows a stable pattern of diffuse bilateral infiltrates. Progress note dated 11/02/2020 35-year-old black female with a history of prolonged hospitalization a 53 days for hypoxemic respiratory failure secondary to coronavirus pneumonia. The patient was admitted back on 09/10/2020. For respiratory failure, and failure to wean from mechanical ventilation, she underwent tracheostomy and PEG tube placement on September 18. Currently, the patient's on the VC plus mode. Targeted tidal volume is 375 mL, inspiratory time is 0.9 seconds, rate 32, FiO2 40%, PEEP of 5. No blood gases were done. The patient's on saline at KVO. She received hemodialysis yesterday and 4 L was removed. She is on vital AF at 46 mL an hour, which is goal. The patient is ready for discharge to long-term acute care my opinion. White count 9.3 hemoglobin 7.2, hematocrit 22.2, and platelet count 255,000. Sodium 135, potassium 4.5, chlorides 98, CO2 28, anion gap 9, BUN 42, and creatinine 2.36. Chest x-ray from 2 days ago is reviewed. There has been no significant changes. Progress note dated 11/03/2020. 35 -year-old black female with a history of prolonged hospitalization of 54 days, with respiratory failure and mechanical ventilation for coronavirus pneumonia. The patient was admitted back on 09/10/2020. The patient developed respiratory failure and failure to wean from mechanical ventilation. She underwent tracheostomy and PEG tube placement on September 18. Currently, the patient has been on pressure support of 15 and CPAP of 5 and FiO2 40%, and yesterday. We'll attempt some trach collar today. The patient's getting saline at 10 mL an hour. The patient will have hemodialysis today. We are hoping to get the patient off to a long-term acute care facility. White count 7.5, hemoglobin 6.9, hematocrit 22.6, and platelet count 255,000. Sodium 133, potassium 5.1, chlorides 97, CO2 27, anion gap 9, BUN 59, and creatinine 3.0. Objective - Vital Signs Vital signs: Vital Signs Temp 98.1 F 11/03/20 08:00 Pulse 93 11/03/20 10:00 Resp 18 11/03/20 10:00 BP 142/96 11/03/20 10:00 Pulse Ox 100 11/03/20 10:00 Intake & Output 11/02/20 11/03/20 11/03/20 18:59 06:59 18:59 Intake Total 812 762 254 Output Total 0 0 0 Balance 812 762 254 Weight 87.7 kg Intake: IV 170 120 40 0.9 Normal Saline @ KVO 120 120 40 Cefepime 1 gm In Sodium 50 Chloride 0.9% 50 ml @ 12. 5 mls/hr IVPB Q24H [facility] Rx #:[id number] Tube Feeding 552 552 184 Other 90 90 30 Output: Urine 0 0 0 Other: Voiding Method External Catheter External Catheter # Bowel Movements 1 ABP, PAP, CO, CI - Last Documented Arterial Blood Pressure 136/76 - Exam No acute distress, currently not sedated or paralyzed, with a midline tracheostomy tube in place. HEENT examination is grossly unremarkable. Neck supple. Full range of motion. No adenopathy thyromegaly or neck vein distention. Midline tracheostomy tube noted. Cardiovascular examination reveals regular rhythm rate. S1-S2 normal. No S3 or S4. No discernible murmur noted. Heart sounds are distant. Heart rate 93 beats per minute. Lungs reveal diffuse bilateral rhonchi and few scattered crackles. There are no wheezes. Breath sounds equal bilaterally. Saturations are 100% on pressure support. Abdomen soft bowel sounds are heard. No masses or tenderness. PEG tube noted. Extremities are intact. No cyanosis clubbing or edema. Skin is without rash or lesion. Neurologic examination is stable. The patient has significant extremity weakness. Neurologic examination is unchanged. - Labs CBC & Chem 7: 11/03/20 04:38 11/03/20 04:38 Labs: Abnormal Lab Results - Last 24 Hours (Table) 11/02/20 11/02/20 11/03/20 Range/Units 12:36 18:26 00:01 RBC (3.80-5.40) m/uL Hgb (11.4-16.0) gm/dL Hct (34.0-46.0) % MCHC (31.0-37.0) g/dL RDW (11.5-15.5) % Sodium (137-145) mmol/L Chloride (98-107) mmol/L BUN (7-17) mg/dL Creatinine (0.52-1.04) mg/dL Glucose (74-99) mg/dL POC Glucose (mg/dL) 162 H 143 H 164 H (75-99) mg/dL Total Protein (6.3-8.2) g/dL Albumin (3.5-5.0) g/dL 11/03/20 11/03/20 11/03/20 Range/Units 04:38 04:38 06:15 RBC 2.56 L (3.80-5.40) m/uL Hgb 6.9 L* (11.4-16.0) gm/dL Hct 22.6 L (34.0-46.0) % MCHC 30.6 L (31.0-37.0) g/dL RDW 16.3 H (11.5-15.5) % Sodium 133 L (137-145) mmol/L Chloride 97 L (98-107) mmol/L BUN 59 H (7-17) mg/dL Creatinine 3.00 H (0.52-1.04) mg/dL Glucose 164 H (74-99) mg/dL POC Glucose (mg/dL) 160 H (75-99) mg/dL Total Protein 5.6 L (6.3-8.2) g/dL Albumin 3.0 L (3.5-5.0) g/dL Assessment and Plan Assessment: Acute hypoxemic respiratory failure, secondary to COVID 19 pneumonia, with ARDS, with admission to hospital on September 10, transferred to ICU on the , intubation on September 11, and tracheostomy and PEG tube placement on September 18. Acute respiratory distress syndrome (ARDS). Acute kidney injury, currently on hemodialysis. Failure to wean from mechanical ventilator, likely secondary to critical illness polyneuropathy/myopathy. Acute diabetic ketoacidosis, resolved. Sepsis, secondary to COVID 19 pneumonia. Acinetobacter tracheobronchitis as bronchopneumonia, currently on cefepime. Nonsustained ventricular tachycardia. Anion gap metabolic acidosis. Poorly controlled type 2 diabetes. Elevated inflammatory markers secondary to coronavirus infection. History of essential hypertension. Generalized anxiety disorder. Morbid obesity. Plan: Plan dated 10/09/2020. The patient remains on the pressure regulated volume control mode of ventilation. The patient is being nourished at goal. The patient remains on propofol, Nimbex, and fentanyl. In addition, the patient remains on norepinephrine. Labs, x-rays, and medications are all reviewed. Prognosis is very poor. We will continue to follow. Additional recommendations and suggestions are forthcoming. The patient remains on daily hemodialysis. Plan dated 10/10/2020. The patient remains about the same. She remains on the ventilator. The patient is status post tracheostomy and PEG tube placement. She remains sedated with propofol and fentanyl. She is also chemically paralyzed with Nimbex. She remains on norepinephrine at 8.5 mcg/m for low blood pressure. Cultures are all negative. She remains on periodic hemodialysis. Additional recommendations and suggestions are forthcoming. Diagnosis is guarded. We will continue to follow make recommendations where appropriate. Plan dated 10/11/2020. The patient remains on mechanical ventilator. We will attempt to prone the patient today for 16 hours, to improve oxygenation. In addition, the patient is switched from pressure regulated volume control modality to volume assist control. Settings include tidal volume at 325, rate 32, FiO2 70%, PEEP of 14. A repeat blood gas to be done in an hour. Additional recommendations and suggestions are forthcoming. The patient is currently undergoing daily hemodialysis. Prognosis remains very poor. We will continue to follow make recommendations where appropriate. Plan dated 10/12/2020. The patient remains on mechanical ventilator. We'll see for can wean down the Nimbex. This seems like a high-dose to me. He should be doing [id number] monitoring. The patient is receiving hemodialysis today. Saturations are 95 and 96%. Peak airway pressures 41 cm water. Additional recommendations and suggestions are forthcoming. Prognosis is very guarded. She is getting nutrition at goal. The patient does better in terms of her saturations, when she is in the prone position. Today we will place her in the prone position again. Plan dated 10/13/2020. The patient remains on mechanical ventilator. She did not do well yesterday with prone because of the tracheostomy cuff leak. Her airway pressures are a bit lower today. She remains on Nimbex, propofol, and fentanyl. She is getting nutrition at goal. Today's blood gases are reasonable. She's currently getting daily hemodialysis. We will continue to follow. Additional recommendations and suggestions are forthcoming. We'll attempt to get the paralysis off. No additional recommendations are made at this time. Plan dated 10/14/2020. The patient remains on mechanical ventilator. Essentially, she's been stable on propofol, fentanyl, and Nimbex. She remains on vital AF at goal. She's been on and off norepinephrine through the night. Labs and x-rays from today are still pending. Vent settings has not changed. We will continue to follow make recommendations where appropriate. Overall prognosis remains very guarded. Plan dated 10/15/2020. The patient remains on the ventilator. She remains on propofol, fentanyl, and Nimbex. She's also on norepinephrine at 6 mg/m. We don't seem to be adequately paralyzing this patient. We will switch to a different paralytic. She did have hemodialysis yesterday. 4 L was removed. She'll have hemodialysis today. Once we have her properly paralyzed, the patient will have a repeat blood gas. I may end up increasing her rate up to 36. Overall prognosis remains very poor. Plan dated 10/30/2020. The patient will begin be placed on pressure support of 15 and CPAP of 5. She apparently did well with the settings late last week. The patient is being nourished at goal. A gases were not done. She remains on cefepime for the Acinetobacter. Overall prognosis remains very poor. The patient has profound weakness, and failure to wean from mechanical ventilation, secondary to critical illness polyneuropathy/myopathy. We are attempting to place the patient. Daily hemodialysis is hampering our efforts. Plan dated 10/31/2020. The patient has been on pressure support and CPAP of 15 and 5, since 2:00 yesterday. The patient appears to be doing well, and, it is stable hemodynamically. We are hoping for discharge tomorrow. No additional recommendations are made. She remains on cefepime for Acinetobacter. She has profound weakness, likely secondary to critical illness polyneuropathy/myopathy. Additional recommendations and suggestions are forthcoming. We will continue to follow make recommendations were appropriate. The patient has now been in the hospital for 51 days. Plan dated 11/01/2020. The chest x-ray from yesterday is reviewed. The patient remains on saline at 10 mL an hour, and vital AF at 46 mL an hour, which is goal. No blood gases today. Labs are reviewed. Currently, the patient's on pressure support of 15 cm water, and CPAP of 5 cm water, beginning at 8:00 this morning. Overnight, she was placed back on the ventilator, on the VC plus modality. She is receiving hemodialysis today. We are hoping for a possible discharge to long-term acute care. That has not been decided yet. The patient has been in the hospital for 52 days. We will continue to follow make recommendations where appropriate. Plan dated 11/02/2020. Currently, the patient remains on the VC plus mode of ventilation. Yesterday, she was placed on pressure support and CPAP and did well. She is awake and alert. She my opinion she's ready for discharge to long-term acute care. She's being nourished at goal. She's getting saline at KVO. She had hemodialysis yesterday in 4 L was removed. Chest x-ray stable and unchanged. Blood gases not been done recently. Laboratory data is reviewed. Prognosis is guarded. Additional recommendations and suggestions are forthcoming. The patient has been here in the hospital for now 53 days. Plan dated 11/03/2020. Currently, the patient has been on pressure support of 15 and CPAP of 5 and FiO2 40%, since yesterday. We will attempt some trach collar her trach shield today. The patient is getting saline at 10 mL an hour. Today he is a hemodialysis today. Labs are reviewed. No chest x-ray today. Oxygen exchange is good. Saturations are 100%. Awake and alert. We will continue to follow make recommendations where appropriate. The patient has been in the hospital now for 54 days. Time with Patient: Greater than 30
--- NOTE | 2020-11-03 11:09 | PN ---
PROGRESS NOTE Patient is seen on hemodialysis. She is tolerating her treatment well. She is maintained on a Friday, Friday, Friday schedule. PHYSICAL EXAMINATION: On examination today, blood pressure 149/99, heart rate 104 per minute, she is afebrile. Examination of the heart S1, S2. Examination of the lungs, bilateral breath sounds are heard. Abdomen is soft, nontender. Examination of lower extremities shows no significant edema. LAB: Show sodium 133, potassium 5.1, hemoglobin was 6.9. ASSESSMENT: 1. Acute kidney injury, currently hemodialysis dependent. Patient remains oliguric. She is maintained on a Friday, Friday, Friday schedule and she will continue with outpatient dialysis. 2. Status post acute hypoxic respiratory failure secondary to COVID pneumonia, ARDS and secondary bacterial pneumonia. Currently status post trach and PEG. Patient will be switched over to trach mask today. 3. Anemia requiring multiple packed RBCs transfusion. No active bleeding noted. Maintained on Aranesp. 4. Volume overload, significantly improved. PLAN: Hemodialysis today. Goal UF of about 4 L. MMODL / IJN: [id number] /
[2020-11-03 11:36] LABS: Glucose,Whole Blood 141 mg/dL (75-99)
[2020-11-03 12:09] LABS: Glucose,Whole Blood 117 mg/dL (75-99)
--- NOTE | 2020-11-03 13:07 | P.PN ---
Subjective Progress Note Date: 11/03/20 HISTORY OF PRESENT ILLNESS 35-year-old female patient of Dr. Arroyo with past medical history of type 2 diabetes comes in with acute shortness of breath associated with high light s ugars. Patient on admission was found to have a fever of 101.5 pulse rate 125 respiratory rate 20. Blood pressure 132/106. On chest x-ray obtained in the ER suggestive of bilateral infiltrates concerning for call with pneumonia. COVID PCR was positive. On admissions patient had an ABG with a pH of 7.14 pCO2 of 20, pO2 of 59, bicarb of 7. Patient's blood sugar on admission was 424 on assessment today patient's blood work patient had a sodium 135 potassium 5.4 chloride 123 bicarb less than 5 and creatinine 0.73. D-dimer was elevated on admission patient 9 28 patient given 1 L of IV fluids followed by normal saline running at 200 mL/h. Patient was positive for acetone on admission. She will anion gap closed and was switched to D5NS. Insulin drip was continued during the night and was switched to patient's home medication this morning. One dose of remdesiver was ordered. Apparently around noon, A- team was called on the patient secondary to hypoxia patient's oxygen saturation dropped to the 70s and 80s on 100% nonrebreather. Patient was switched to BiPAP on 18/12 and is doing better o FiO2 of 80%. ABG was obtained and ph was 7. 14 pCO2 of 28 bicarb of 7 pO2 of 17. Patient noted to have uncompensated metabolic acidosis with compensated respiratory alkalosis. Stat dose of 1 amp bicarb was given and followed by sodium bicarbonate drip. Insulin drip restarted. Patient's initiated on dexamethasone 6 mg IV twice a day. Potassium phosphate ordered as phosphorus is low. Patient's repeat blood gases suggest a pH of 7.25, CO2 32 pO2 of 72 bicarb 14. I will not normal saline at 100 mL/h as patient's anion gap has increased. Patient given 1 dose of 2 mg of morphine with improvement in respiratory rate. One dose of Ativan 0.5 mg was given. Xanax 0.25 twice a day along with Ativan 0.5 IV every 6 hours ordered for the patient. Vitals were evaluated patient pulse 129 [id number]. She was moved to the ICU. Precedex drip was initiated. Lopressor was initiated at 25 twice a day. Metoprolol tartrate 5 mg IV every 6 hours. Systolic blood pressure more than 160. Started chest x-ray was obtained and suggest stable bilateral consolidation suggestive of COVID-19 pneumonia. 09/12 patient is seen in the ICU is currently mechanically ventilated and sedated on vent settings of respiratory rate 36, tidal volume 375 FiO2 80% PEEP of 18.. Vital signs reviewed patient had a temp of 100.4 pulse 150 respiratory rate 36 oxygen saturation 95% on 80% on fio2 .'s labs are reviewed which patient had a d-dimer 1.84 that is increased to 14.3. Arterial Blood gas suggest ph 7.35, CO2 40, po2 62, . Her BMP suggest a sodium 135 potassium 3.7 chloride 112 bicarb 21 creatinine 1.57 for calcitonin is 3.5 CRP is increased from 8.78.2 LDH is increased to 2614. Patient remains on Pneumovax, propofol drip. Lovenox increased to 50 subcu twice a day. Patient received 2 L of IV fluids. Continue IV fluids at 100 mL/h. Bicarb drip discontinued patient initiated on Zosyn 3.375 every 8 hours. Continue insulin drip at 4 units per hour. Patient is currently in prone positioning 09/13: Patient evaluated in the ICU remains on Ventilation continues to be sedated, in prone position. Vent settings are respiratory rate 36, tidal vital 375, FiO2 70% PEEP of 18. ABG shows pO2 of 82, PCO2 of 39, pH is 7.19. Latest labs show WBC 11.1, hemoglobin 13.2, d-dimer still pending, but yesterday was up to 14.3. Creatinine up to 3.4, BUN 24 sodium 137, potassium 4.0. Patient's urine output has been low, nephrology on consult. Bicarb drip increased to 100 miles an hour, receiving another liter of normal saline, she did have a ultrasound that showed unremarkable bilateral kidneys. Repeat chest x-ray showed bilateral lung infiltrates that are stable. Anion gap has closed, will start Lantus 10 units at at bedtime Novolog every 6 hours. 09/14: Patient is seen in the ICU, still currently mechanically ventilated and sedated. She continues in the prone position. Her oxygen quickly drops if she is not in prone. Patient's kidney function has worsened. Laboratory values show creatinine of 4.87, BUN 33, LDH 2191, C-reactive protein 2.7. ABG shows pH 7.32, pO2 of 60, pCO2 43. Patient is making almost no urine overnight. Nephrology is following patient continues on cefepime for urinary tract infection, culture is still pending. Vascular has been consulted for placement of temporary hemodialysis catheter for plans for dialysis. 09/15: Patient evaluated in the ICU, continues to be mechanically ventilated and sedated on assist control ventilation rate of 36, tidal volume 375, FiO2 100% and PEEP of 18. ABG today shows pO2 58, pCO2 of 45, and pH 7.35. She continues on tube feedings. Yesterday patient underwent ultrasound-guided right internal jugular non-tunneled hemodialysis catheter placement. Patient underwent hemodialysis treatment last night and plans have another hemodialysis treatment today. She continues to make almost no urine. She continues on cefepime for antibiotic coverage, and continues on Decadron and Lovenox. 09/16: Patient seen on follow-up remains in the ICU mechanically ventilated and sedated. She continues on assist control rate of 36, tidal volume 375, FiO2 100% and PEEP of 20. PEEP had to be increased due to patient had to be in supine position for dialysis, will go back to prone position once dialysis is complete. ABG shows pH 7.32, pCO2 49, PaO2 61. Laboratory values showed WBC 11.2, hemoglobin 11, sodium 134, creatinine 4.44, BUN 38. Urine culture shows no growth, blood cultures show no growth to date. Repeat chest x-ray shows bilateral pleural effusions, correlate for ARDS, pulmonary edema, diffuse pneumonia, findings are stable from last exam. Patient does not require any pressors, blood pressure 133/57, heart rate 78. 5/16: Patient was evaluated in the ICU today for follow-up. She continues to be intubated and on mechanical ventilation. Current vent settings are tidal volume 375, FiO2 100% and PEEP of 20. ABG shows pH 7.37, pCO2 40, pO2 102. She continues with intermittent prone positioning. Patient continues to have almost no urine output, maintained on dialysis. Patient received dialysis yesterday without complication. Laboratory values revealed WBC 10.3, hemoglobin 10.4, sodium 132, potassium 3.1, BUN 33, creatinine 4.29, LDH 1913, C-reactive protein 1.3. Urine and sputum cultures are negative, blood cultures show no growth to date. Consult placed to dietary to start TPN[ ] 09/18: She remains in the intensive care unit intubated and on mechanical ventilation with tidal volume 375, FiO2 60 and PEEP of 20. Patient is being prone to daily at approximately 16 hours per day. Pulmonary medicine has added in Dr. Zhang to do PEG tube and trach today. Patient is not on vasopressors. Repeat blood work reveals WBC 12.6, hemoglobin 9.8, platelet count 212. Sodium 133, potassium 3.2, chloride 102, CO2 21, BUN 35 and creatinine 4.12. Blood sugar 126. Patient underwent hemodialysis yesterday with removal of 2 L and is scheduled again today with goal of 2-3 L and is scheduled again tomorrow. 09/19: She is scheduled for hemodialysis today and is off fentanyl temporarily. Patient is status post trach and PEG tube yesterday. And she remains on mechanical ventilation. Pulse ox 93-95%. She has been afebrile, heart rate 64, respiratory rate 36, blood pressure 115/50. Fentanyl is off to improve blood pressure for hemodialysis which is scheduled for today. Contacted vascular surgery about permanent hemodialysis catheter. Repeat blood work reveals WBC 14.3, hemoglobin 9.6, platelet count 200. D-dimer 6.48. LDH 1686. C-reactive protein 1.1. BUN 34 creatinine 3.81. Sodium 130, potassium 3.5, chloride 101, CO2 18. Blood sugars running between 101 198. Plan is to wean off Pneumovax today. Patient remains on insulin drip. Repeat chest x-ray reveals bilateral multifocal confluent opacities consistent with COVID-19. Some improved aeratio n periphery of the left lung and worsening opacities throughout the right lung. 09/20: She remains in the intensive care unit on mechanical ventilation. She has been afebrile, heart rate 65, respiratory rate 37, blood pressure 121/70, pulse ox 91-99%. Repeat blood work reveals WBC 14.5, hemoglobin 9.1, platelet count 216. D-dimer 6.13. Sodium 133, potassium 3.1, chloride 102, CO2 18, BUN 35 and creatinine 4.27. Blood sugars running between 128 and 143. LDH 1717. C- reactive protein 1.7. Patient remains on insulin drip which will be transitioned to NovoLog scale every 6 hours. Patient is scheduled for permanent hemodialysis catheter placement today with vascular surgery. Repeat chest x-ray reveals stable diffuse bilateral interstitial and airspace disease. Possible small right effusion. His work is following for transfer to [facility]. Do not anticipate discharge until next week. 09/21: Patient is undergoing hemodialysis. She remains on mechanical ventilation with tidal volume 375, FiO2 down to 45 and PEEP was decreased to 15. Patient is continued on propofol, fentanyl drips. She is on tube feedings at goal. Patient was taken off insulin drip yesterday and on scale only but blood sugars are running in the 200s, Levemir scheduled at bedtime will be added. Other blood work reveals WBC 13.3, hemoglobin 8.7, platelet count 192. Sodium 137, potassium 3.6, chloride 107, CO2 18, BUN 34 and creatinine 4.21. Repeat chest x-ray is stable. 09/22: She remains in the intensive care on mechanical ventilation with tidal volume 375, FiO2 of 50 and PEEP of 10. Pulse ox is running 96%. She is afebrile, heart rate in the 50s, respiratory rate 36, blood pressure 100/64. Repeat blood work reveals WBC 16.5, hemoglobin 8.9, platelet count 213. Sodium 134, potassium 3.7, chloride 103, CO2 21, BUN 34 and creatinine 3.89. Blood sugars running in the 200s to 324. Levemir increased to 16 units at bedtime and continue NovoLog scale every 6 hours. Patient is on tube feedings at goal. She has a Haley catheter in with a scant amount of dark/brown urine. Fecal management system is in place. Repeat chest x-ray reveals diffuse bilateral airspace infiltrates persist unchanged. Patient is scheduled for hemodialysis tomorrow morning on Friday. 09/23: Patient remains on mechanical ventilation with tidal volume 3.75, FiO2 50 and PEEP of 10. nuclear monitoring technician sinus rhythm. She has no urine output. Fecal management system is in place. She is undergoing dialysis at this time with plan for removal of 2-1/2 L. She has been afebrile, heart rate in the 50s, respiratory rate 36, blood pressure 108/76 and pulse ox 89%. WBC 13.6, hemoglobin 9.1, platelet count 194. Sodium 136, potassium 3.0 and was replaced, chloride 106, CO2 21, BUN 49 creatinine 5.31. Blood sugars are running between 182 and this morning 194. Patient was still in the 200s and 300s. Levemir last evening was increased to 16 units. Patient remains on propofol and fentanyl drips. Lovenox was increased to 60 mg twice daily. 09/24: PEEP was increased today to 20, tidal volume is at 375 and FiO2 of 50%. Patient has been afebrile. She has been started on levo fed. Repeat chest x- ray reveals bilateral multifocal confluent opacities consistent with Covid 19 or ARDS redemonstrated. Nephrology will plan dialysis for tomorrow for 3 L. Patient remains on propofol fentanyl and Nimbex. WBC 12.5, hemoglobin 9.8, platelet count 161. D-dimer 13.3. Sodium 132, potassium 3.4, chloride 102, CO2 20, BUN 48 and creatinine 4.67. Blood sugars extremely elevated to 96-409. LDH 2217. 09/25: Patient remains in the intensive care unit on mechanical ventilation with tidal volume 375, FiO2 50 and PEEP of 20. Patient is afebrile, heart rate 61, respiratory rate 36, blood pressure 102/56, pulse ox 97%. Repeat blood work reveals WBC 9.3, hemoglobin 8.5 and platelet count 171. Sodium 130, potassium 3.7, chloride 100, CO2 20, BUN 61 creatinine 5.65. Blood sugars have been elev ated up to 455. Levemir increased to 20 units twice daily, NovoLog 5 units every 6 hours and continue NovoLog scale. Patient is scheduled for hemodialysis today. Repeat chest x-ray reveals bilateral multifocal and confluent opacities. Decadron and Lovenox dosing change by pulmonary. Patient is off norepinephrine. 09/26: Patient remains in the intensive care unit on mechanical ventilation with tidal volume 375, FiO2 50 and PEEP of 15. She has been afebrile, heart rate 91, blood pressure 114/68, pulse ox 99%. nuclear monitoring technician sinus rhythm. 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 Sodium 134, potassium 3.6, chloride 102, CO2 22, BUN 41 creatinine 4.21. Patient has improved blood sugars this morning running 150s and 160s. Diabetic medications were adjusted yesterday. Patient is awake and alert and interacting. Yesterday, patient had PICC line inserted by interventional radiology. Repeat chest x-ray reveals diffuse airspace infiltrates in both lung ann appear to progress slightly in the interval. 09/27: Patient remains in intensive care unit on mechanical ventilation with improvement of settings with tidal volume 375, FiO2 decreased to 40 and PEEP decreased to 10. Patient is on hemodialysis every other day and plan to remove 3 L today. Patient is more awake and alert. She is slow to respond but is able to follow simple commands. Blood sugars are running between 84 and 123. Repeat blood work reveals WBC 7.1, hemoglobin 8.1, platelets 152. Sodium 135, potassium 3.6, chloride 103, CO2 21, BUN 53 and creatinine 5.88. Repeat chest x-ray revealed cardiomegaly and pulmonary edema. Patient is on tube feedings:. Patient is not require vasopressors and is off sedation. Fecal management system remains in place for brown liquid stool. C. difficile was negative. 09/28: Patient remains on mechanical ventilation with tidal volume 375, FiO2 increased to 80 and PEEP increased to 18. Patient had a rough night was very anxious, no pain. Xanax 0.25 mg 3 times daily was added. There is concern for pulmonary embolism for which patient was started on heparin drip, she is unable to undergo CAT scan. Venous Doppler bilateral lower extremities was nondiagnostic due to extensive edema in obese patient but minimal imaging of the popliteal veins does show flow. Repeat echocardiogram has been ordered. Cefepime has also been ordered at 1 g IV piggyback every 24 hours as well as vancomycin, pharmacy dosing. Patient is back on fentanyl drip, propofol drip and norepinephrine. Blood sugars are elevated and insulin Levemir will be i ncreased to 25 mg twice daily. Ferrlecit infusion has been ordered by nephrology for 4 days. Patient is undergoing hemodialysis today.temperature max 100.2, heart rate 134, respiratory rate 34, blood pressure 120/65, pulse ox 94%. nuclear monitoring technician is sinus tachycardia. Repeat blood work reveals WBC 16.9, hemoglobin 9.7, platelet count 216. D-dimer 8.81. Sodium 134, potassium 3.8, chloride 99, CO2 25, BUN 43 and creatinine 5.36. Blood sugars in the 200s. AST 40. 09/29 Patient had declined more last 48 hours require more sedation, patient is doing hemodialysis, respiratory failure is quite bit worse this time. Patient was inquired the pain is well back on fentanyl drip. Her vent set up with PEEP is limited but higher. No new finding on culture and her chest x-ray continues shows diffuse infiltrate persistent although there is a moderate interval improvement. 09/30 patient's was seen and evaluated. PEEP was reduced to 11 as patient is maintaining good saturation at the current vent settings. 10/01 patient was seen at bedside. She is currently on assist control rate of 28 white tidal volume 350 FiO2 50% and PEEP of 10 which has been reduced by pulmonary as patient name cleaning her oxygen saturation. Arm blood gas was obtained with a pH of 7.35 pCO2 37 pO2 of 63. She remains hemodynamically stable with no need for pressors. Labs were reviewed patient's BUN is 29 crea tinine 3.93 glucose 122 albumin 2.2 sodium 131 chloride 19 hemoglobin is downtrending with a Hb of 7.3 no leukocytosis 7.1. Patient's urine output is minimal at this time. Her rate has increased to 129 and is currently on positive fluid balance even with dialysis. Last dialysis was done yesterday. Continue enteral feeding currently at goal. Antibiotic has been discontinued and continues to remain on DEXA methicillin 4 mg IV daily. 10/02 patient continues to be on trach support with mechanical ventilation. Patient was evaluated by health officer and was switched to VC control as patient was noted to be double stacking on and off throughout the night. Respiratory rate continue to 28 tidal volume increased to 400 with a PEEP for Dr. Downey. Patient is maintaining oxygen saturation 91% on the current setting. According to the nurse bedside patient saturation drops significantly or she is moved or her sedation is dropped. Patient is currently on propofol drip, fentanyl drip. She did underwent dialysis today and was able to maintain her low pressure without the need of pressors. Labs reviewed today suggest a WBC of 6.7 hemoglobin of 7.0 and d-dimer 3.9 bicarb 17 BUN 38 creatinine 4.8. LDH is 964. Sodium 1:30 likely secondary to volume overload. Urine sodium and urine osmolality ordered. Patient's glucose this morning is 146. Continue to remain on enteral feeding. Urine output is reduced. Fall catheter will be placed today. Continue to remain on dialysis. 10/03: Patient remains on mechanical ventilation and is back on propofol and fentanyl drips. Patient is currently on VC control with tidal volume 400, FiO2 55 and PEEP of 12. Patient still is not making any urine and is dialysis dependent with next treatment planned for tomorrow with removal of 3-3-1/2 L. PEG tube feedings are at goal. Fecal management system remains in place. At the time of evaluation, patient is off levophed. Repeat chest x-ray reveals stable diffuse bilateral airspace disease correlate for ARDS, pulmonary edema or diffuse pneumonia. Temperature max last evening was 101. Temperature currently 99, heart rate 106, respiratory rate 32, blood pressure 101/50, pulse ox 86%. Repeat blood work reveals WBC 6, hemoglobin 7.4, platelet count 160. D-dimer 4.05. Sodium 133, potassium 3.5, chloride 100, CO2 23, BUN 31 creatinine 3.8. Blood sugars are running between 100 and 170. Ferritin 1514. Liver function test normal. LDH 1016, C-reactive protein 13.6. Prognosis remains guarded. 10/04: Patient remains intubated on mechanical ventilation with tidal volume 400, FiO2 65, PEEP of 14. Patient continues to run fevers and repeat blood culture and urine and urine culture ordered for today. Haley catheter has been removed this patient has no significant urine output at about 20 mL per shift. BladderScan is monitored for greater than 300 and the patient is straight cathed. Hemoglobin is 6.8 and she has been ordered 41 unit of packed RBCs today. She is currently on propofol and fentanyl drips. She is scheduled for hemodialysis today. WBC 4.5, hemoglobin 6.8, platelet count 151. D-dimer 3.28. Sodium 132, potassium 4.1, chloride 100, CO2 22, BUN 37 creatinine 4.74. Blood sugars running between 97 and 110. Ferritin 1801. LDH 859. C-reactive protein 14.4. Chest x-ray reveals correlate for pneumonia, edema, ARDS. Prognosis remains guarded. 10/05: Patient remains in intensive care unit currently on mechanical ventilation with tidal volume 400, FiO2 was increased to 100 and PEEP is at 14. She continues to run fevers which have worsened with temperature max 103.1. She has been tachycardic in the 130s, blood pressure is marginal but not on vasopressors. Pulse ox currently 92%. Repeat blood work reveals WBC 5.5, hemoglobin 7.6, platelet count 190. D-dimer 2.7, ferritin 1770, LDH 932, C- reactive protein 21.4. Blood sugars are running between 100 1669. Electrolytes are normal. BUN 27 and creatinine 3.79. Pancultures were done yesterday including a straight cath for urine culture, sputum culture and blood culture. Arterial line was removed as well as midline. She is currently on propofol, fen tanyl and started on Nimbex today. 10/06: Patient remains in the intensive care unit. Today patient in prone position and remains on mechanical ventilation with tidal volume 350, FiO2 65 and PEEP of 14. Her last documented fever was yesterday at 2 PM. Heart rate is in the 120s, respiratory rate 32, pulse ox 88-92%. CBC is unremarkable. Electrolytes are normal. BUN 30 creatinine 2.93. Blood sugars are running between 135 and 164. Cultures from October 04: Blood culture no growth, sputum culture finalized, urine culture finalized. Catheter tip culture is in process. Repeat chest x-ray shows bilateral interstitial infiltrates. Patient is on tube feedings of Nepro at goal of 30 ML's per hour. Patient underwent dialysis yesterday and is scheduled for repeat dialysis today. 10/07: Patient maintains in the intensive care unit intubated and on mechanical ventilation. She is receiving hemodialysis this morning has been every day. Plan is to remove 2-1/2 L today. Vent settings have changed today with tidal volume 350, FiO2 was increased to 100% and PEEP remains at 14. She has been continued on Nimbex, fentanyl, norepinephrine and propofol. Plan is to prone position patient following dialysis. Repeat chest x-ray reveals worsening interstitial infiltrates. BUN is 26 and creatinine 2.59. LDH 955, C-reactive protein 22.1. Prognosis remains poor. 10/08: Patient remains in intensive care unit intubated and on mechanical ventilation with tidal volume 350, FiO2 60, PEEP of 14. She is pronating today. She is scheduled for hemodialysis on a daily basis. She has been afebrile, heart rate 112, respiratory rate 36, blood pressure 161/88, pulse ox 93%. Repeat blood work reveals WBC 9.9, hemoglobin 9.1, platelet count 320. Sodium 133, potassium 5.3, chloride 100, CO2 20, BUN 29 creatinine 2.44. Blood sugar running between 102 and 139. LDH 1026, C-reactive protein 19.7. 10/09: Patient is undergoing dialysis this morning. She continues to be intubated and on mechanical ventilation with tidal volume 350, 270 and PEEP of 14. Patient is also on propofol, Nimbex, norepinephrine and fentanyl drips. Repeat chest x-ray reveals persistent bilateral multifocal and confluent opacities consistent with Covid 19. She is afebrile, heart rate 116, respiratory rate 36, blood pressure 120/65, pulse ox 91%. Repeat blood work reveals WBC 5.4, hemoglobin 9.2, platelet count 216. D-dimer 2.67, ferritin 2568, LDH 794, C- reactive protein 13.9. Blood sugars have been running 90-104. Creatinine 1.64. She is on daily dialysis treatment. 10/10: She remains in the intensive care unit. She is now out of isolation as a repeat Covid test came back negative. She remains on mechanical ventilation with tidal volume 350, FiO2 70 and PEEP of 14. Patient is also on Nimbex, propofol, norepinephrine, fentanyl drips. She is on PEG tube feedings at goal and tolerating well. Repeat blood work reveals WBC 7.8, hemoglobin 7.5, platelet count 267. Sodium 139, potassium 3.9, chloride 109, CO2 20, BUN 20 creatinine 1.29. Blood sugars are running between 76 and 102. Scheduled Aiyana Log decreased to 3 units. Repeat chest x-ray reveals moderate cardiomegaly and continued pulmonary edema. Slight interval improvement. Patient is continued on daily hemodialysis. 10/11: Patient remains in intensive care unit on mechanical ventilation with tidal volume 325, FiO2 70, PEEP 14. She is currently being prone. She underwent hemodialysis this morning with removal of 4 L of fluid with plan to continue daily treatment. She is currently on Nimbex, fentanyl and propofol. No vasopressor at this time. Fecal management system remains in place. She is on tube feedings currently at hold due to prone positioning. Patient has been afebrile, heart rate 116, respiratory rate 36, blood pressure 100/58, pulse ox 93-96%. Repeat blood work reveals WBC 9.3, hemoglobin 8.1, platelet count 276. Sodium 136, potassium 4.3, chloride 103, CO2 20, BUN 20 creatinine 1.14. Blood sugars running between 133 and 202. 10/12: Patient remains in the intensive care unit. She is undergoing hemodialy sis this morning. She's been afebrile, heart rate in the 120s, respiratory rate 32, blood pressure 102/65. She is not on vasopressors. She is continued on Nimbex, fentanyl and propofol. Vent settings are currently tidal volume 325, FiO2 70, PEEP 14. Total platelet count 273. Sodium 133, potassium 4.7, chloride 100, CO2 19, BUN 21 creatinine 0.91. Blood sugars running between 121 and 143. 10/13: Patient remain in the ICU she is on hemodialysis daily, she is still on the vent with a PEEP of 14 and FiO2 of 70. Her oxygenation is marginal pulse rate still high. Patient had scratched cornea was seen in ophthalmology decided to keep doing eyedrops along with eye patch at this point. Prognosis still very bad this point. 10/14: She remains on mechanical ventilation with tidal volume 325, FiO2 70% and PEEP of 14. She did require label fed last evening for about 6 hours. She did not tolerate pronating yesterday. She is undergoing dialysis this morning with plan for removal of 4 L. Blood sugars have been low and IV fluids changed to D10 until blood sugars have recovered. Levemir and scheduled NovoLog discontinued. Patient is on tube feedings at goal there's been no change in th is. 10/15 patient remains on mechanical ventilation in the intensive care unit. FiO2 still at 70%, PEEP of 18. Blood sugars have improved since medications were adjusted. White blood cells 33.9, hemoglobin 8.5, sodium 135, BUN 19, creatinine 0.96. Patient to receive dialysis again today. Patient did run a low-grade fever throughout the night and pro calcitonin level is ordered. Chest x-ray showed continued diffuse bilateral airspace disease. Patient remains on tube feedings at goal. 10/16: Patient remains on mechanical ventilation with tidal volume 300, FiO2 70, PEEP of 15. Fecal management system is out. She is currently on low dose of norepinephrine. She is also on fentanyl drip, propofol drip, rocuronium drip. Heart rate is running in the 130s, sinus rhythm, blood pressure 121/63, pulse ox 95%. Patient is been afebrile. Repeat blood work reveals WBC 18.9, hemoglobin 7.5, platelet count 291. Sodium 135, potassium 4.2, chloride 101, CO2 19, BUN 25 and creatinine 1.36. Blood sugars are running between 143 and 199. Patient is on scale insulin only. Repeat chest x-ray reveals persistent bilateral multifocal and completed opacities consistent with Covid 19. 10/17: Patient remains on mechanical ventilation with tidal volume 300, FiO2 50, PEEP of 14. She is currently receiving hemodialysis. The patient is having yellow-colored drainage from the trach site. This is going to be culture today. Repeat blood work reveals WBC of 24, hemoglobin 7.3 and platelet count 310. Sodium 136, potassium 4.1, chloride 101, CO2 19, BUN 24 creatinine 1.43. Blood sugar 139. Capillary blood glucose running 147 and 189. Repeat chest x-ray is unchanged. Patient had increased respiratory rate 40s and 50s with oxygen saturation of 87 and now was increased and Seroquel added this morning. Prognosis remains guarded. 10/18: Patient remains on mechanical ventilation with tidal volume 300, FiO2 60, PEEP has been decreased to 12. Patient will need a PEEP of 8 in order to tra nsfer to long-term care. She is currently on fentanyl drip and Precedex drip. Patient is tracking when her name is stated. She seems to be slightly improved today. Patient has been afebrile, heart rate 106, respiratory rate 32, blood pressure 110/61, pulse ox 98%. Repeat blood work reveals WBC 30.3, hemoglobin 7.2, platelet count 350. Sodium 139, potassium 4.2, chloride 103, CO2 20, BUN 23 creatinine 1.79. Blood sugars are increasing running up 299. Patient will be placed on Levemir. Secretions from tracheotomy sent for culture and in process. She is currently undergoing hemodialysis. 10/23: Patient remains in the intensive care unit on mechanical ventilation with tidal volume 300, FiO2 65 and PEEP of 10. nuclear monitoring technician has been in a sinus rhythm. Patient does open her eyes and appears to be tracking. Blood sugars have been elevated. Levemir will be increased to 40 units daily and scheduled NovoLog increased to 12 units and continue NovoLog every 6 hours per scale. Patient is receiving hemodialysis today. She is not currently on vasopressors. Patient is on Precedex drip only. Antibiotics in the form of cefepime were started on October 18. Patient has been afebrile, heart rate 126, respiratory rate 36, blood pressure 163/105. Pulse ox 91%. Repeat blood work reveals WBC 16.0, hemoglobin 7.2, platelet count 208. Electrolytes are within normal limits. BUN 62 and creatinine 2.43. Blood sugars running between 259-321. Most recent blood culture from [facility] 20 is no growth at 24 hours. Repeat chest x-ray reveals cardiomegaly and persistent bilateral pulmonary edema. 10/24: Patient is awake, eyes are open and tracking, she is able to follow simple commands. Severe generalized weakness noted. Precedex gtt has been discontinued. Patient is receiving hemodialysis. Her blood sugars have remained elevated for which Levemir increased to 25 units twice daily along with 15 units of NovoLog every 6 hours along with scale. Tidal volume 330, FiO2 60, PEEP of 8. research program manager and social media marketing analyst following closely. Anticipate possible discharge by the end of next week to long-term care facility. 10/25: Patient remains in the intensive care unit on mechanical ventilation. Tidal volume 350, FiO2 60, PEEP 8. She is receiving hemodialysis this morning. Her heart rate remains elevated in the 130s. Pulmonary as started her on Cardizem at 60 mg 3 times daily which has not had any improved effect. We'll start the patient on Lopressor 25 mg twice daily. Patient has been afebrile, heart rate respiratory rate 32, blood pressure 151/91, pulse ox 98%. Patient is been transfuse 1 unit of packed RBCs today. Patient's mental status is improving and patient is able to follow simple commands. WBC 12.2, hemoglobin 6.3, platelet count 196. Sodium 135 otherwise looked lites are normal, BUN 48 creatinine 1.99. Blood sugars are running between 120 and 172. Levemir has been increased to 30 mg twice daily continue 15 units of NovoLog every 6 hours with scale. 10/26: Patient remains in intensive care unit, on mechanical ventilation with tidal volume 375, FiO2 50, PEEP of 8. Patient's heart rate remains elevated 120s and Lopressor increased to 50 mg twice daily. Patient seems to be quite anxious and depressed. We will decrease Seroquel to 50 mg twice daily and start patient on Lexapro. Patient received her first dose of Xanax this morning but this did not seem to help heart rate either. She has been afebrile, heart rate 128, blood pressure 149/79, pulse ox 93%. Repeat hemoglobin 7.3. Sodium 135, potassium 3.9, chloride 90, CO2 30, BUN 45 and creatinine 1.94. Blood sugar are improved running between 117-194. We will make further adjustments to insulin and to increase long-acting to 35 units twice daily and decrease NovoLog scheduled to 7 units and continue NovoLog scale. There are problems with patient's trach and consequently placed with [facility]. General surgery to reevaluate trach. 10/27: Patient is complaining of nausea today. Concerned that this is related to Lexapro. We will further decrease Seroquel to 50 mg at bedtime. Patient is being bladder scanned and last bladder scan wasn't 125 mL. She does not have Haley catheter. No fecal management system. She is having a bowel movement about 3 per day. Plan is for CPAP trial today. She is currently on mechanical ventilation with tidal volume 375, FiO2 50 and PEEP of 8. She has been afebrile, heart rate 105 which is much improved from the last few days. Blood pressure 145/88, pulse ox 94%. There is a new consult in place for Dr. Clemente regarding exchanging the trach and possible debridement at site. WBC 11.4, hemoglobin 8.2, blood count 218. Sodium 136, potassium 4.1, chloride 97, CO2 31, BUN 47 creatinine 1.97. Blood sugars running between 129 and 204. We have changed long acting insulin to 35 units twice daily and continue NovoLog 7 units every 6 hours and scale every 6 hours. Nephrology may be decreasing frequency of dialysis treatments. Anticipate probable discharge to long-term care next week. 10/28: Patient was complaining of nausea today which has resolved. CPAP trial will continue today. She is currently on mechanical ventilation with a tidal volume 375, FiO2 of 50, PEEP of 8. She is afebrile, heart rate 108 which continues to show improvement. Blood pressure 133/87, pulse ox 99%. Patient is able to follow commands. And answers appropriately with nodding her head. WBC 10.5, hemoglobin 8.0, potassium 4.6, BUN 46, creatinine 1.96. Patient is currently receiving hemodialysis. 10/29: Patient was found sitting up in bed. Able to answer some questions appropriately. Utilizing kim. Able to follow commands. Ann over elevated blood sugars. Levemir 35 units twice a day will continue at this with a 7 unit coverage. Patient remains afebrile. Heart rate 102, respirations 29, blood pressure 124/74, pulse ox 97% on mechanical ventilation. Mechanical ventilation settings with a tidal volume 375, FiO2 of 50 and a PEEP of 8. Family has been into see patient. Hemodialysis will be held today. 10/30: Patient remains in the ICU on mechanical ventilation. She is not requiring pressure support. She is on CPAP support. She is receiving hemodialysis this morning with plan to start a Friday schedule this week. Blood sugars are stable and running between 140 and 184. She is on tube feedings at goal and having bowel movements every 12 hours. Repeat blood work reveals WBC 8.9, hemoglobin 10.2, platelet count 258. Sodium 133, potassium 5.0, chloride 97, CO2 23, BUN 69 creatinine 2.67. 10/31: Patient is seen today in intensive care unit. She remains on mechanical ventilation with tidal volume 375, FiO2 45 of PEEP of 5. Patient is found sitting in a chair working with physical therapy. Patient is noted to have left arm weakness without pain and good sensation. She is not receiving dialysis today and will be started on Friday regime. Patient's heart rate is better controlled in the 80s, blood pressure 113/65, pulse ox 99%. Patient is been afebrile. Patient has been on cefepime. Repeat blood work reveals WBC 9.3, hemoglobin 6.9 and patient is transfused 1 unit of packed RBCs today. Platelet count 248. Electrolytes are within normal range, BUN 38 and creatinine 2.04. Her blood glucose running between 130 and 193. AST 38. Social work is working with the daughter regarding discharge planning. 11/01: A she was undergoing dialysis with plan for 3 L removed today and dialysis is scheduled Friday. She is in bed and appears to be comfortable. She is able to talk and express herself and is cognitively intact. She remains on mechanical ventilation. She has been afebrile, heart rate 107, blood pressure 115/85, pulse ox 99%. Repeat blood work reveals WBC 8.5, hemoglobin 7.5, platelet count 278. Sodium 136, potassium 4.8, chloride 100, CO2 27, BUN 55 creatinine 2.81. Blood sugar running between 114 and 185. Ca lcium 10.3, total bilirubin 0.2, AST 34, ALT 34, alkaline phosphatase 144. Social work is working on discharge planning which will be to [facility], [facility] or [facility]. 11/02: Patient remains in the intensive care unit on mechanical ventilation with tidal volume 375, FiO2 40, PEEP of 5. Patient's mental status continues to be improved. She has been afebrile, heart rate 97, blood pressure 144/86, pulse ox 98%. Repeat blood work reveals WBC 8.3, hemoglobin 7.2, platelet count 255. Sodium 135, potassium 4.5, chloride 98, CO2 20, BUN 42 and creatinine 2.36. Blood sugars are running between 124 278. She is scheduled for hemodialysis tomorrow with plan for 4 L to be removed. Social work is working on discharge plan and once patient has been accepted and insurance authorization is obtained if needed, patient will be discharged. 11/03: Patient remains in intensive care unit on mechanical ventilation patient is currently on pressure support of 15, CPAP of 5 and FiO2 of 40%. A trach collar is to be attempted today in order to get the patient discharged to [facility] care facility. Land is for medical [facility] [place] on Friday if patient continues to improve. He has been afebrile, heart rate in the 80s, blood pressure 90/57, pulse ox 100%. Repeat blood work reveals WBC 7.5, hemoglobin 6.9, platelet count 255. Sodium 133, potassium 5.1, chloride 97, CO2 27, BUN 59 creatinine 3. Blood sugars up and running 117 164. REVIEW OF SYSTEMS Constitutional: No fever, no chills, no night sweats. No weight change. Profound weakness, + significant fatigue no lethargy. Reported daytime sleepiness. EENT: No headache. No loss of vision. No loss of Hearing. No nasal drainage or congestion. No epistaxis. No sore throat. Lungs: No shortness of breath, cough, no sputum production. No wheezing. Cardiovascular: No chest pain, no lower extremity edema. No palpitations. No paroxysmal nocturnal dyspnea. No orthopnea. No lightheadedness or dizziness. No syncopal episodes. Abdominal: No abdominal pain. No nausea, vomiting. No diarrhea. No constipation. No bloody or tarry stools. loss of appetite- peg tube. Genitourinary: No dysuria, increased frequency, urgency. No urinary retention. Minimal urine production Musculoskeletal: No myalgias. Noted muscle weakness, noted gait dysfunction, no frequent falls. No back pain. No neck pain. Integumentary: Positive wound-decubitus ulcer, trach wound. No rash or pruritus. No unusual bruising. No change in hair or nails. Neurologic: No aphasia. No facial droop. Noted change in mentation-improved. No head injury. No headache. No paralysis. No paresthesia. Psychiatric: suspected depression. positive anxiety. Endocrine: Noted abnormal blood sugars-stable and monitored. PHYSICAL EXAMINATION Gen: This is is a 35-year-old black female, patient is on mechanical ventilation, and sitting in ICU bed undergoing HD. HEENT: Head is atraumatic, normocephalic. Pupils equal, round. Sclerae is anicteric. Eyes are open and tracking. Tracheostomy midline. NECK: Supple. No JVD. No lymphadenopathy. No thyromegaly. LUNGS: Lung sounds are clear to auscultation. No intercostal retractions. HEART: Regular rate and rhythm. No murmur. nuclear monitoring technician sinus tachycardia. ABDOMEN: Soft. Bowel sounds are present. No masses. No tenderness. EXTREMITIES: Trace bilateral pedal edema. No calf tenderness. NEUROLOGICAL: Patient is awake, alert, oriented and able to follow commands, significant weakness. ASSESSMENT AND PLAN 1. Acute hypoxic respiratory failure secondary to Covid 19 pneumonia and possible bacterial pneumonia. Patient was intubated on September 11. She is status post 1 dose of Remdesivir and 1 dose of Tocilizumab. Continue Ventolin inhaler 4 times daily, Lovenox 30 mg subcu daily, supplements. Status post PEG tube and trach. Continue cefepime for a Citrobacter pneumonia. 2. Acute diabetic ketoacidosis secondary to Covid 19 pneumonia, uncontrolled with hyperglycemia. Levemir 35 units twice daily and scheduled NovoLog increased to 7 units every 6 hours and continue NovoLog scale every 6 hours. 3. Metabolic encephalopathy secondary to Covid 19 and DKA. 4. Sepsis and septic shock secondary to Covid 19 pneumonia with multiorgan failure. Continue as in #1. Trach drainage cultured. General surgery on consult. 5. Acute metabolic acidosis secondary to acute DKA, Covid 19 and acute kidney injury. Renvela 1600 mg q6h. 6. Diabetes mellitus type 2 uncontrolled with A1c 13.6. Continue as above. 7. Hypophosphatemia status post replacement. 8. Hyperkalemia secondary to DKA, resolved. 9. Sinus tachycardia secondary to sepsis, volume deficiency. Patient is on Cardizem 60 mg 3 times daily, and Lopressor 50 mg twice daily. 10. Acute kidney injury secondary to ATN secondary to Covid 19 and DKA. Continue hemodialysis on Friday. 11. Possible acute gram-negative pneumonia versus MRSA pneumonia. Completed course of antibiotics. 12. Hypertension. 13. Morbid obesity with BMI of 53. 14. Situational depression and anxiety. Seroquel decreased to 50 mgat bedtime, continue Lexapro 10 mg daily and Xanax 0.25 mg twice daily as needed. 15. DVT prophylaxis. Lovenox. 16. GI prophylaxis. Protonix 40 mg IV push daily. 17. Stage IV pressure ulcer to trach site. Currently utilizing absorptive silver dressing. 18. Stage II decubitus ulcer to coccyx. 19. Critical illness polyneuropathy and myopathy. Continue physical therapy. 20. Anemia of chronic disease. Transfuse 1 unit of packed RBCs, continue Aranesp 40 g every 7 days. CODE STATUS: Full code Prognosis guarded. DISCHARGE PLAN [facility] on Friday. Impression and plan of care have been directed as dictated by the signing physician. Kimberly Boswell nurse practitioner acting as scribe for signing physician. Objective - Vital Signs Vital signs: Vital Signs Temp 98.1 F 11/03/20 08:00 Pulse 93 11/03/20 10:00 Resp 18 11/03/20 10:00 BP 142/96 11/03/20 10:00 Pulse Ox 100 11/03/20 10:00 Intake & Output 11/02/20 11/03/20 11/03/20 18:59 06:59 18:59 Intake Total 812 762 254 Output Total 0 0 0 Balance 812 762 254 Weight 87.7 kg Intake: IV 170 120 40 0.9 Normal Saline @ KVO 120 120 40 Cefepime 1 gm In Sodium 50 Chloride 0.9% 50 ml @ 12. 5 mls/hr IVPB Q24H COUNTS INCLUDE 234 BEDS AT THE [facility] Rx #:[id number] Tube Feeding 552 552 184 Other 90 90 30 Output: Urine 0 0 0 Other: Voiding Method External Catheter External Catheter # Bowel Movements 1 ABP, PAP, CO, CI - Last Documented Arterial Blood Pressure 136/76 - Labs CBC & Chem 7: 11/03/20 04:38 11/03/20 04:38 Labs: Abnormal Lab Results - Last 24 Hours (Table) 11/02/20 11/02/20 11/03/20 Range/Units 12:36 18:26 00:01 RBC (3.80-5.40) m/uL Hgb (11.4-16.0) gm/dL Hct (34.0-46.0) % MCHC (31.0-37.0) g/dL RDW (11.5-15.5) % Sodium (137-145) mmol/L Chloride (98-107) mmol/L BUN (7-17) mg/dL Creatinine (0.52-1.04) mg/dL Glucose (74-99) mg/dL POC Glucose (mg/dL) 162 H 143 H 164 H (75-99) mg/dL Total Protein (6.3-8.2) g/dL Albumin (3.5-5.0) g/dL 11/03/20 11/03/20 11/03/20 Range/Units 04:38 04:38 06:15 RBC 2.56 L (3.80-5.40) m/uL Hgb 6.9 L* (11.4-16.0) gm/dL Hct 22.6 L (34.0-46.0) % MCHC 30.6 L (31.0-37.0) g/dL RDW 16.3 H (11.5-15.5) % Sodium 133 L (137-145) mmol/L Chloride 97 L (98-107) mmol/L BUN 59 H (7-17) mg/dL Creatinine 3.00 H (0.52-1.04) mg/dL Glucose 164 H (74-99) mg/dL POC Glucose (mg/dL) 160 H (75-99) mg/dL Total Protein 5.6 L (6.3-8.2) g/dL Albumin 3.0 L (3.5-5.0) g/dL
[2020-11-03] MEDS: ESCITALOPRAM 10 MG TAB PO SCH (13:30)
[2020-11-03] MEDS: CHOLECALCIFEROL 25 MCG (1000 IU) TABLET PO SCH (13:30)
[2020-11-03] MEDS: ASCORBIC ACID 500 MG TAB PO SCH ×2 (13:30→21:32)
[2020-11-03 13:32] LABS: Glucose,Whole Blood 144 mg/dL (75-99)
[2020-11-03] MEDS: CEFEPIME 1 GM in SODIUM CHLORIDE 0.9% 50 ML IVPB SCH (13:33)
[2020-11-03 17:58] LABS: Glucose,Whole Blood 139 mg/dL (75-99)
[2020-11-03] MEDS: QUEtiapine 50 MG TAB PO SCH (21:31)
[2020-11-04 00:13] LABS: Glucose,Whole Blood 150 mg/dL (75-99)
[2020-11-04] MEDS: SEVELAMER 800 MG TAB PO SCH ×4 (00:14→17:59)
[2020-11-04] MEDS: INSULIN ASPART (NovoLOG) 100 UNIT/ML VIAL SQ SCH ×8 (00:14→17:59)
[2020-11-04] MEDS: NYSTATIN 100,000 UNIT/ML SUSP 500,000 UNIT/5 ML CUP PO SCH ×4 (00:14→17:59)
[2020-11-04] MEDS: HYDROmorphone 0.5 MG/0.5 ML SYRINGE IVP PRN ×6 (00:26→20:24)
[2020-11-04 04:57] LABS: Anisocytosis Slight; HCT 24.3 % (34.0-46.0); HGB 7.7 gm/dL (11.4-16.0); Hypochromasia Marked; MCHC 31.6 g/dL (31.0-37.0); MCV 88.5 fL (80.0-100.0); Mean Platelet Volume 8.5; Platelet Count 250 k/uL (150-450); Poikilocytosis Slight; RBC 2.75 m/uL (3.80-5.40); RDW 16.9 % (11.5-15.5); WBC 8.5 k/uL (3.8-10.6)
[2020-11-04 05:20] LABS: Calcium 9.8 mg/dL (8.4-10.2); Potassium 4.4 mmol/L (3.5-5.1)
[2020-11-04 06:23] LABS: Glucose,Whole Blood 173 mg/dL (75-99)
[2020-11-04] MEDS: INSULIN DETEMIR (LEVEMIR) 100 UNIT/ML SYR SQ SCH ×2 (06:25→20:24)
[2020-11-04] MEDS: diphenhydrAMINE 50 MG/ML 1 ML VIAL IVP PRN ×2 (06:25→20:24)
[2020-11-04] MEDS: ALBUTEROL HFA INHALER INHALATION SCH ×4 (08:25→21:00)
--- NOTE | 2020-11-04 08:36 | P.PN ---
Subjective Patient is seen in follow-up for acute kidney injury. Oliguric. Status post tracheostomy and PEG tube placement this admission. Receiving tube feeding. Off vent. Awake and alert. Vital signs: Stable. General: The patient appeared well nourished and normally developed. HEENT: Tracheostomy noted. LUNGS: Breath sounds decreased. HEART: Regular rate and rhythm. Abdomen: Soft, no distention. EXTREMITITES: Trace edema. Objective - Vital Signs Vital signs: Vital Signs Temp 98.5 F 11/04/20 04:00 Pulse 108 H 11/04/20 07:00 Resp 11 L 11/04/20 07:00 BP 142/91 11/04/20 07:00 Pulse Ox 98 11/04/20 08:26 Intake & Output 11/03/20 11/04/20 11/04/20 18:59 06:59 18:59 Intake Total 764 652 44 Output Total 3000 0 0 Balance -2236 652 44 Weight 87.7 kg 85.6 kg Intake: IV 170 120 10 0.9 Normal Saline @ KVO 120 120 10 Cefepime 1 gm In Sodium 50 Chloride 0.9% 50 ml @ 12. 5 mls/hr IVPB Q24H [facility] Rx #:[id number] Tube Feeding 504 442 34 Other 90 90 Output: Urine 0 0 0 Hemodialysis 3000 ABP, PAP, CO, CI - Last Documented Arterial Blood Pressure 136/76 - Labs CBC & Chem 7: 11/04/20 04:37 11/04/20 04:37 Labs: Abnormal Lab Results - Last 24 Hours (Table) 11/03/20 11/03/20 11/03/20 Range/Units 11:34 12:07 13:30 RBC (3.80-5.40) m/uL Hgb (11.4-16.0) gm/dL Hct (34.0-46.0) % RDW (11.5-15.5) % Sodium (137-145) mmol/L Chloride (98-107) mmol/L BUN (7-17) mg/dL Creatinine (0.52-1.04) mg/dL Glucose (74-99) mg/dL POC Glucose (mg/dL) 141 H 117 H 144 H (75-99) mg/dL 11/03/20 11/04/20 11/04/20 Range/Units 17:56 00:12 04:37 RBC 2.75 L (3.80-5.40) m/uL Hgb 7.7 L (11.4-16.0) gm/dL Hct 24.3 L (34.0-46.0) % RDW 16.9 H (11.5-15.5) % Sodium (137-145) mmol/L Chloride (98-107) mmol/L BUN (7-17) mg/dL Creatinine (0.52-1.04) mg/dL Glucose (74-99) mg/dL POC Glucose (mg/dL) 139 H 150 H (75-99) mg/dL 11/04/20 11/04/20 Range/Units 04:37 06:21 RBC (3.80-5.40) m/uL Hgb (11.4-16.0) gm/dL Hct (34.0-46.0) % RDW (11.5-15.5) % Sodium 132 L (137-145) mmol/L Chloride 96 L (98-107) mmol/L BUN 41 H (7-17) mg/dL Creatinine 2.34 H (0.52-1.04) mg/dL Glucose 116 H (74-99) mg/dL POC Glucose (mg/dL) 173 H (75-99) mg/dL Assessment and Plan Plan: Assessment: 1. Acute kidney injury secondary to ATN secondary to COVID-19 and DKA. Baseline creatinine is near 1. Started on hemodialysis on September 14. Has p-cath. Oliguric. No hydronephrosis noted on kidney ultrasound. 2. DKA s/p insulin drip and IV fluids. 3. Acute hypoxic respiratory failure secondary to COVID-19 pneumonia. Status post tracheostomy this admission. 4. Metabolic acidosis secondary to acute kidney injury and DKA s/p bicarb drip. Improved postdialysis. 5. Hyponatremia, hypervolemic. Stable. 6. Hyperphosphatemia secondary to acute kidney injury. Maintained on Renvela. 7. Anemia of chronic illness and kidney disease. Maintained on Aranesp. Iron deficiency noted - s/p iv iron. Status post blood transfusion this admission. 8. Fluid overload. Improved with ultrafiltration. Plan: Hemodialysis on Friday. Maintain tube feeds. Avoid nephrotoxins. Continue to monitor renal function and urine output. Monitor for renal recovery.
[2020-11-04] MEDS: ENOXAPARIN 30 MG/0.3 ML SYRINGE SQ SCH (08:40)
[2020-11-04] MEDS: PANTOPRAZOLE 40 MG/10 ML VIAL IVP SCH ×2 (08:40→21:22)
[2020-11-04] MEDS: CHLORHEXIDINE GLUCONATE 15 ML CUP MUCOUS MEM SCH ×2 (08:40→21:23)
[2020-11-04] MEDS: ESCITALOPRAM 10 MG TAB PO SCH (08:41)
[2020-11-04] MEDS: CHOLECALCIFEROL 25 MCG (1000 IU) TABLET PO SCH (08:41)
[2020-11-04] MEDS: ASCORBIC ACID 500 MG TAB PO SCH ×2 (08:41→21:23)
[2020-11-04] MEDS: NYSTATIN 100,000 UNIT/GM POWD 15 GM TOPICAL SCH ×3 (08:42→21:23)
[2020-11-04] MEDS: DILTIAZEM ORAL 60 MG TAB PO SCH ×3 (08:42→21:23)
[2020-11-04] MEDS: HYDROPHILIC CREAM 180 GM TUBE TOPICAL SCH (08:42)
[2020-11-04] MEDS: METOPROLOL TARTRATE 50 MG TAB PO SCH ×2 (08:44→21:23)
--- NOTE | 2020-11-04 10:23 | P.PN ---
Subjective Progress Note Date: 11/04/20 Principal diagnosis: Acute respiratory failure secondary to Covid 19 pneumonia. Patient was reevaluated today on 10/05/2020, remains in the ICU, intubated, mechanically ventilated, patient is doing worse today compared to the last few days, her chest x-ray is worsening, her O2 requirement is rising and she is back on the percent FiO2, I have also increased her PEEP to 16, assist control rate was increased to 52, FiO2 is on the percent. ABG earlier today on 70% FiO2 showed a pO2 of 56 pCO2 of 50 pH of 7.32. She was on assist control rate of 28 tidal volume of 400 FiO2 70% and PEEP of 14. Patient had to be placed on a higher dose of propofol which was increased to 70 fentanyl is at 2 mcg/kg/m, patient will be placed on Nimbex as I'm having difficulty oxygenating the pat ient in spite of high FiO2. She is scheduled to undergo hemodialysis again today, she had 4 L off yesterday. Remains on tube feeds using vital AF at 30 MLS per hour. Patient is tachycardic rate is 129, blood pressure is marginal 86/45, hence may recommend adding norepinephrine. The overall picture clearly showing deterioration in this patient's clinical status, and I have a feeling that this patient will continue to do poorly and she is now maximized on treatment. Again her chest x-ray is showing significant worsening of her infiltrates. Patient was reevaluated today on 10/06/2020, remains in the ICU, intubated and mechanically ventilated, and she is presently in prone position since last night for the next few hours until dialysis which is supposed to start sometime in the next couple of hours. Patient remains on assist control mode of mechanical ventilation, it is volume control with volume of 350 rate of 3 to FiO2 65%. 14. Her ABG showed a pO2 of 68 pCO2 of 52 pH of 7.28. Patient remains on propofol at 75 fentanyl at 3 mcg/kg/h she is also on norepinephrine at 0.02 and Nimbex at 3 mcg/kg/m. Patient is scheduled to have hemodialysis today. Chest x-ray continues to show evidence of bilateral interstitial infiltrates. Patient is on enteral feeding in the form of Nepro at 30/30. Patient has been proned now for the last 17 hours. Electrolytes are normal however her BUN is 30 creatinine 2.93. Blood sugar is 147 WBC count is 5.1 hemoglobin is 11.4. Patient remains on the COVID-19 cocktail. Remains on albuterol, Symbicort, Decadron 4 mg IV push daily, Lovenox 30 mg subcu daily. Insulin protocol. Her tonic 40 mg IV push daily. Off antibiotics. Patient was reevaluated today on 10/07/2020, remains in the ICU, intubated and mechanically ventilated, presently receiving hemodialysis. She is on assist control rate of 32, tidal volume of 350, FiO2 is up to on the percent today, and PEEP of 14. Higher PEEP did not seem to help much, hence I kept her on a PEEP of 14. ABG today showed a pO2 of 63 pCO2 53 pH of 7.25. A shunt is on Nimbex at 4 mcg/kg/m, fentanyl 3 mcg/kg/h, norepinephrine at 0.07 mcg/kg/m, propofol at 75 mcg/kg/m. Again the patient is receiving hemodialysis, and I have instructed the nurses today to go back into prone position after she is done with dialysis. Chest x-ray continues to show worsening interstitial infiltrates and ARDS pic ture. Labs were all reviewed. Her medications were all reviewed today. Basic metabolic profile is normal BUN is 26 creatinine 2.59. LDH is 955 and C- reactive protein is 22.1. Not much of a change in the last few days. Patient was reevaluated today on 10/08/2020, remains in the ICU, intubated and mechanically ventilated, patient is presently in prone position her ABG this morning showed significant improvement in her oxygenation, however continues to have a combined metabolic and respiratory acidosis. She is now on assist control of 350 rate of 36 FiO2 down to 60% PEEP at 14. ABG on 100% showed a pO2 of 209 pCO2 of 59 pH of 7.15. Her assist control rate was increased to 36. Kept her on the same tidal volume of 350. 2 A of bicarb were given. Patient is also on bicarb drip. Patient remains on propofol at 75 mcg/kg/m, she is on Nimbex at 4 mcg/kg/m, and norepinephrine at 0.01 mcg/kg/m. Patient is also on fentanyl at 3 mcg/kg per hour. During my evaluation, the patient was in prone position, however should be placed back in supine position once dialysis is ready and the patient will be dialyzed again today. Chest x-ray from yesterday continues to show evidence of interstitial edema and ARDS. No chest x-ray has been done yet today because the patient was in prone position. Patient remains on Decadron, remains on Lovenox, she is off antibiotics for now. CBC showed WBC 9.9 hemoglobin is 9.1. Hematocrit is 28.7. Electrodes are normal. BUN is 29 and creatinine 2.44. Bicarb is 20. LDH is up a bit 1026, C-reactive protein is about the same at 19.7. Progress note dated 10/09/2020. This is a 35-year-old black female with history of acute COVID 19 infection, with acute hypoxemic respiratory failure. She was admitted way back on September 10. Because of failure to wean from mechanical ventilation, she underwent tracheostomy and PEG tube placement on September 18. Currently remains on the ventilator. She is on the VC + (PRVC) modality, with a targeted tidal volume 350 and inspiratory time of 0.9 seconds. Her rate is set at 36. FiO2 70%, and PEEP of 14. On those settings, her arterial blood gases show a PaO2 of 72, pCO2 47, and pH 7.23. Currently, the patient's getting daily hemodialysis. Her drips including propofol at 75 mcg/kg/m, Nimbex at 3.5 mcg/kg/m, with [id number] monitoring, fentanyl at 3 g kilogram per hour, norepinephrine at 7 mcg/m, saline at 20 mL an hour, and vital 1.2 at 10 mL an hour, which is goal. White count 5.4, hemoglobin 9.2, hematocrit 28.8, and platelet count 217,000. Sodium 137, potassium 4.2, chlorides 108, CO2 19, anion gap 10, BUN 22, and creatinine 1.64. The patient's chest x-ray is consistent with bilateral infilt rates, and is essentially unchanged, and consistent with a diagnosis of coronavirus pneumonia. Progress note dated 10/10/2020. 35-year-old black female, with a history of COVID 19 infection and acute hypoxemic respiratory failure. She was admitted way back on September 10. Because of failure to wean from mechanical ventilation, she underwent tracheostomy and PEG tube placement on September 18. She remains on the mechanical ventilator. She is on the pressure regulated volume control modality. Her targeted tidal volume is 350 mL, and her inspiratory time 0.9 seconds. The patient's on 70% FiO2, PEEP o f 14, with a rate of 36. The patient is receiving Nimbex at 4.5 mcg/kg/m, propofol at 65 mcg/kg/m, norepinephrine at 3.5 mcg/m, fentanyl at 2.5 mcg/kg/h, and vital AF 1.2 at 10 mL an hour which is goal. The patient's blood gases from this morning show a PaO2 of 79, 5, and a pH is 7.29. Today's chest x-ray is currently still pending. Overnight, there've been no major changes in her condition. White count 7.8, hemoglobin 7.5, hematocrit 23.1, and platelet count 267,000. Sodium 139, potassium 3.9, chlorides 109, CO2 20, anion gap 10, BUN 20, with creatinine 1.29. Progress note dated 10/11/2020. 35-year-old black female with a history of COVID 19 infection and acute hypoxemic respiratory failure. She was admitted back on September 10. Because of failure to wean from mechanical ventilation, she underwent tracheostomy and PEG tube placement on September 18. She remains on the mechanical ventilator to this day. Currently, she is on pressure regulated [place] control, with a targeted tidal volume of 350, inspiratory time of 0.9 seconds, FiO2 70%, PEEP of 14, and a rate of 36. Her blood gases show a PaO2 of 74, pCO2 46, pH 7.28. In an attempt to reduce the FiO2, I was going to go up on the PEEP, but I was reminded that the patient has a issue with high airway pressures, potentially causing airway and alveolar trauma. For that reason, I will switch her to volume assist control modality, with a tidal volume at 325, rate 32, FiO2 70%, and PEEP of 14. This will cause permissive hypercapnic ventilation. I'm okay with this, and I will except a pH of 7.15 or higher. He blood gas will be done in one hour. The patient has daily hemodialysis. We will attempt to prone the patient for 16 hours today. She apparently does well with that modality. Currently, she is on saline at KVO, propofol at 65 mcg/kg/m, fentanyl at 2.5 mcg/kg/h, Nimbex at 3.5 mcg/kg/m, and norepinephrine has been weaned off. She is getting vital AF, at 10 mL an hour, which is goal. Over the last 3 days, since I've been seeing her, there is not been much in the way of progress. White count 9.3, hemoglobin 8.1, hematocrit 26.4, platelet count 276,000. Sodium 136, potassium 4.3, chlorides 103, CO2 20, anion gap 13, BUN and creatinine were 20 and 1.14. Chest x-ray today shows improvement of volume status. Progress note dated 10/12/2020. 35-year-old black female again seen in the intensive care unit, room 265. She has a history of coronavirus pneumonia with acute hypoxemic respiratory failure. She was admitted way back on September 10. She ended up with a tracheostomy and PEG tube placement on September 18 for failure to wean from mechanical ventilation. She remains on the ventilator. She is on volume assist control mode rate of 32, tidal volume 325, FiO2 70%, PEEP of 14. Arterial blood gases show pO2 of 54, pCO2 60, pH is 7.17. She's getting hemodialysis today. Peak airway pressures about 21 cm water. He is getting propofol at 75 mcg/kg/m, fentanyl at 3.5 mcg/kg/h, Nimbex at 7 mcg/kg/m, and saline at KVO. Her tube feeds include vital AF at 10 mL an hour, which is goal. She currently tested negative for coronavirus. She is getting hemodialysis today. Chest x-rays essentially unchanged. White count 10.4, he will May 0.1, hematocrit 25.9, platelet count 273,000. Sodium 133, potassium 4.7, chlorides 100, CO2 19, anion gap 14, BUN and creatinine were 21 and 0.91. This electrolyte profile consistent with an anion gap metabolic acidosis. Saturations currently are 95%. Medications are reviewed. Progress note dated 10/13/2020. 35-year-old black female, seen again in the ICU, room 265. She has a history of coronavirus pneumonia with acute hypoxemic respiratory failure. She was admitted to this hospital on the . She ended up with a tracheostomy and PEG tube being placed on September 18 for failure to wean from mechanical ventilation. She remains on mechanical ventilator. Currently, she is on the volume assist control mode, rate 32, tidal volume 325, FiO2 70%, PEEP of 14. Arterial blood gases show pO2 70, pCO2 of 56, and a pH is 7.26. The patient is currently also on Nimbex at 2.5 mcg/kg/m with train of 4 monitoring, propofol at 50 mcg/kg/m, and fentanyl at 2 mcg/kg/h. The patient's also getting vital AF and 10 mL an hour, which is goal. The patient's airway pressures today are a bit better. Her peak airway pressures are in the low 40s. While she was being prone yesterday, there was a significant cuff leak. Hence, she had be placed in the supine position. White count 14.2, hemoglobin 8.3, hematocrit 26.4, and platelet count 285,000. Sodium 134, potassium 4, chlorides 99, CO2 23, anion gap 12, BUN 21, and creatinine 0.70. Microbiology is all negative. Chest x-ray continues to show diffuse bilateral infiltrates. Progress note dated 10/14/2020. 35-year-old black female seen again in room 265. She has a history of coronavirus pneumonia with acute hypoxemic respiratory failure. She was admitted to the hospital on September 10. She ended up with a tracheostomy and PEG tube being placed on September 18 for failure to wean from mechanical ventilation. Roslyn oconnor remains on the ventilator. Currently, she is on volume assist control mode, rate 32, tidal volume 325, FiO2 70%, and PEEP of 14. She's receiving propofol 60 mcg/kg/m, fentanyl at 3 mcg/kg/h, and Nimbex at 7 mcg/kg/m. The patient is also receiving saline at 20 mL an hour. She's been on and off of norepinephrine area and currently is on hold. She is also receiving vital AF at 10 mL an hour which is goal. Laboratory data from today is not yet available. From October 13, white count 14.2, hemoglobin 8.3, and platelet count was normal. Also, blood gases from yesterday show pO2 70, pCO2 of 56, and pH is 7.26. Electrolytes are essentially within normal range. Chest x-ray from yesterday continues to show bilateral infiltrates, without much change. Progress note dated 10/15/2020. 35-year-old black female, again seen in room 265. She has a history of coronavirus pneumonia, with acute hypoxemic respiratory failure. She was admitted to the hospital back on September 10. She ended up with a tracheostomy and PEG tube being placed on September 18 for failure to wean from mechanical ventilation. She's been in the hospital now for 35 days. Currently remains on the ventilator. She's on the volume assist control mode, rate 32, tidal volume 325, FiO2 70%, EPAP of 18. Blood gases show pO2 of 80, pCO2 61, pH is 7.15. The patient will have hemodialysis today. Yesterday, hemodialysis was done, and 4 L was removed. The patient is currently on propofol at 70 mcg/kg/m, fentanyl at 3 mcg/kg/h, Nimbex at 8 mcg/kg/m, no epinephrine at 6 mg/m, 0.9 at 10 mL an hour, and vital AF at 10 mL an hour which is goal. Unfortunately, she is twitching 4 out of 4 on the Nimbex at the current dose, and we will switch her to rocuronium at 5 mcg/kg/m. We'll titrate accordingly, and monitor the patient with [id number] testing. Current laboratory data includes a white count of 33.9, hemoglobin 8.5, hematocrit 26.4, and platelet count 367,000. Sodium 135, potassium 4.5, chlorides 100, CO2 21, anion gap 14, BUN 19, creatinine 0.96. Microbiologic data is all negative. Progress note dated 10/30/2020. 35-year-old black female, who is now been in the hospital for 50 days. The patient was admitted back on September 10. The patient underwent tracheostomy and PEG tube placement on September 18, for chronic respiratory failure, failure to wean from mechanical ventilation, secondary to severe coronavirus pneumonia and hypoxemia. She remains on mechanical ventilator. She is on the VC plus mode, with a targ eted tidal volume of 375, and inspiratory time of 0.9 seconds. The rate of 32, FiO2 45%, and PEEP of 6. Blood gases were not done today. She remains on saline at 10 mL an hour, and vital AF at 46 mL an hour, which is goal. We will attempt to place her on some pressure support and CPAP. We'll use settings of 15/5. She did very well with that last week. Currently, she remains on cefepime. A white count 8.9, hemoglobin 7.2, hematocrit 21.9, and a normal platelet count. Sodium 133, potassium 5, chlorides 97, CO2 23, anion gap is 13, BUN 69, and creatinine 2.67. One of the discharge issues, as the patient is currently still on daily hemodialysis. No chest x-ray today. Progress note dated 10/31/2020. 35-year-old black female, who is now been in the hospital for 51 days. The patient was admitted back on September 10. She underwent tracheostomy and PEG tube placement on September 18 for chronic respiratory failure with failure to wean from the chemical ventilation, secondary to severe coronavirus pneumonia and hypoxemia. Yesterday, she was on the VC plus mode. Currently, suggested a, she 's been on pressure support of 15, and CPAP of 5. When on VC plus, she has a targeted tidal volume of 375, respiratory rate of 32, inspiratory time of 0.9 seconds, FiO2 45%, and PEEP of 5. Blood gases, done on pressure support, show pO2 of 76, pCO2 47, and pH 7.38. The patient's on saline at 10 mL an hour, and vital AF at 46, which is goal. White count 9.3, hemoglobin 6.9, hematocrit 21.6, platelet count 248,000. Sodium potassium chloride CO2 all normal. Anion gap 7, BUN and creatinine were 38 and 2.04. Today's chest x-ray is stable. Progress note dated 11/01/2020. 35-year-old white female, who is been in the hospital for 52 days. She was admitted back on 09/10/2020. She was admitted with a diagnosis of acute hypoxemic respiratory failure secondary to coronavirus pneumonia. She underwent tracheostomy and PEG tube placement on September 18, for failure to wean from mechanical ventilation. Currently, the patient's on pressure support of 15 cm water, and CPAP of 5 cm water. When she is not on these settings, she is on the VC plus modality. No blood gases today. She's getting saline at 10 mL an hour. Getting vital AF at 46 mL now which is goal. She is receiving hemodialysis today. We are hoping, the patient can be transferred to a long-term acute care facility. That still not decided as yet. White count 8.5, hemoglobin 7.5, hematocrit 23.6, and platelet count 278,000. Sodium 136, potassium 4.8, chlorides 100, CO2 27, anion gap 9, BUN 55, creatinine 2.81. Chest x-ray from yesterday shows a stable pattern of diffuse bilateral infiltrates. Progress note dated 11/02/2020 35-year-old black female with a history of prolonged hospitalization a 53 days for hypoxemic respiratory failure secondary to coronavirus pneumonia. The patient was admitted back on 09/10/2020. For respiratory failure, and failure to wean from mechanical ventilation, she underwent tracheostomy and PEG tube placement on September 18. Currently, the patient's on the VC plus mode. Targeted tidal volume is 375 mL, inspiratory time is 0.9 seconds, rate 32, FiO2 40%, PEEP of 5. No blood gases were done. The patient's on saline at KVO. She received hemodialysis yesterday and 4 L was removed. She is on vital AF at 46 mL an hour, which is goal. The patient is ready for discharge to long-term acute care my opinion. White count 9.3 hemoglobin 7.2, hematocrit 22.2, and platelet count 255,000. Sodium 135, potassium 4.5, chlorides 98, CO2 28, anion gap 9, BUN 42, and creatinine 2.36. Chest x-ray from 2 days ago is reviewed. There has been no significant changes. Progress note dated 11/03/2020. 35 -year-old black female with a history of prolonged hospitalization of 54 days, with respiratory failure and mechanical ventilation for coronavirus pneumonia. The patient was admitted back on 09/10/2020. The patient developed respiratory failure and failure to wean from mechanical ventilation. She underwent tracheostomy and PEG tube placement on September 18. Currently, the patient has been on pressure support of 15 and CPAP of 5 and FiO2 40%, and yesterday. We'll attempt some trach collar today. The patient's getting saline at 10 mL an hour. The patient will have hemodialysis today. We are hoping to get the patient off to a long-term acute care facility. White count 7.5, hemoglobin 6.9, hematocrit 22.6, and platelet count 255,000. Sodium 133, potassium 5.1, chlorides 97, CO2 27, anion gap 9, BUN 59, and creatinine 3.0. Progress note dated 11/04/2020. 35-year-old black female with a history of prolonged hospitalization a 54 days, with respiratory failure and mechanical ventilation for coronavirus pneumonia. The patient was admitted back on 09/10/2020. The patient developed respiratory failure and failure to wean from mechanical ventilation. She underwent tra cheostomy and PEG tube placement on September 18. Currently, the patient has been on pressure support of 15 and CPAP of 5, with an FiO2 of 40%. Yesterday, we placed the patient on a trach collar chest trach shield, at 40%. The patient remains on that modality. She seems be doing relatively well. The patient is not receiving any IV fluids. The patient is getting nutrition with Nepro at 34 mL an hour. She is getting hemodialysis, Friday, Friday, and Friday. She looks much more stable. White count 8.5, hemoglobin 7.7, hematocrit 24.3, and platelet count 250,000. Sodium 132, potassium 4.4, chlorides 96, CO2 27, anion gap 9, BUN 41, and creatinine 2.34. Chest x-ray shows bilateral infiltrates, relatively stable at this time. Objective - Vital Signs Vital signs: Vital Signs Temp 98.3 F 11/04/20 08:00 Pulse 108 H 11/04/20 09:00 Resp 18 11/04/20 09:00 BP 168/103 11/04/20 09:00 Pulse Ox 98 11/04/20 09:00 Intake & Output 11/03/20 11/04/20 11/04/20 18:59 06:59 18:59 Intake Total 764 652 242 Output Total 3000 0 0 Balance -2236 652 242 Weight 87.7 kg 85.6 kg Intake: IV 170 120 20 0.9 Normal Saline @ KVO 120 120 20 Cefepime 1 gm In Sodium 50 Chloride 0.9% 50 ml @ 12. 5 mls/hr IVPB Q24H [facility] Rx #:[id number] Tube Feeding 504 442 102 Other 90 90 120 Output: Urine 0 0 0 Hemodialysis 3000 ABP, PAP, CO, CI - Last Documented Arterial Blood Pressure 136/76 - Exam No acute distress, currently not sedated or paralyzed, with a midline tracheostomy tube in place. The patient is currently on trach shield. HEENT examination is grossly unremarkable. Neck supple. Full range of motion. No adenopathy thyromegaly or neck vein distention. Midline tracheostomy tube noted. Cardiovascular examination reveals regular rhythm rate. S1-S2 normal. No S3 or S4. No discernible murmur noted. Heart sounds are distant. Heart rate 93 beats per minute. Lungs reveal diffuse bilateral rhonchi and few scattered crackles. There are no wheezes. Breath sounds equal bilaterally. Saturations are 98% on trach shield. Abdomen soft bowel sounds are heard. No masses or tenderness. PEG tube noted. Extremities are intact. No cyanosis clubbing or edema. Skin is without rash or lesion. Neurologic examination is stable. The patient has significant extremity weakness. Neurologic examination is unchanged. - Labs CBC & Chem 7: 11/04/20 04:37 11/04/20 04:37 Labs: Abnormal Lab Results - Last 24 Hours (Table) 11/03/20 11/03/20 11/03/20 Range/Units 11:34 12:07 13:30 RBC (3.80-5.40) m/uL Hgb (11.4-16.0) gm/dL Hct (34.0-46.0) % RDW (11.5-15.5) % Sodium (137-145) mmol/L Chloride (98-107) mmol/L BUN (7-17) mg/dL Creatinine (0.52-1.04) mg/dL Glucose (74-99) mg/dL POC Glucose (mg/dL) 141 H 117 H 144 H (75-99) mg/dL 11/03/20 11/04/20 11/04/20 Range/Units 17:56 00:12 04:37 RBC 2.75 L (3.80-5.40) m/uL Hgb 7.7 L (11.4-16.0) gm/dL Hct 24.3 L (34.0-46.0) % RDW 16.9 H (11.5-15.5) % Sodium (137-145) mmol/L Chloride (98-107) mmol/L BUN (7-17) mg/dL Creatinine (0.52-1.04) mg/dL Glucose (74-99) mg/dL POC Glucose (mg/dL) 139 H 150 H (75-99) mg/dL 11/04/20 11/04/20 Range/Units 04:37 06:21 RBC (3.80-5.40) m/uL Hgb (11.4-16.0) gm/dL Hct (34.0-46.0) % RDW (11.5-15.5) % Sodium 132 L (137-145) mmol/L Chloride 96 L (98-107) mmol/L BUN 41 H (7-17) mg/dL Creatinine 2.34 H (0.52-1.04) mg/dL Glucose 116 H (74-99) mg/dL POC Glucose (mg/dL) 173 H (75-99) mg/dL Assessment and Plan Assessment: Acute hypoxemic respiratory failure, secondary to COVID 19 pneumonia, with ARDS, with admission to hospital on September 10, transferred to ICU on the , intubation on September 11, and tracheostomy and PEG tube placement on September 18. Acute respiratory distress syndrome (ARDS). Acute kidney injury, currently on hemodialysis. Failure to wean from mechanical ventilator, likely secondary to critical illness polyneuropathy/myopathy. Acute diabetic ketoacidosis, resolved. Sepsis, secondary to COVID 19 pneumonia. Acinetobacter tracheobronchitis as bronchopneumonia, currently on cefepime. Nonsustained ventricular tachycardia. Anion gap metabolic acidosis. Poorly controlled type 2 diabetes. Elevated inflammatory markers secondary to coronavirus infection. History of essential hypertension. Generalized anxiety disorder. Morbid obesity. Plan: Plan dated 10/09/2020. The patient remains on the pressure regulated volume control mode of ventilation. The patient is being nourished at goal. The patient remains on pr opofol, Nimbex, and fentanyl. In addition, the patient remains on norepinephrine. Labs, x-rays, and medications are all reviewed. Prognosis is very poor. We will continue to follow. Additional recommendations and suggestions are forthcoming. The patient remains on daily hemodialysis. Plan dated 10/10/2020. The patient remains about the same. She remains on the ventilator. The patient is status post tracheostomy and PEG tube placement. She remains sedated with propofol and fentanyl. She is also chemically paralyzed with Nimbex. She remains on norepinephrine at 8.5 mcg/m for low blood pressure. Cultures are all negative. She remains on periodic hemodialysis. Additional recommendations and suggestions are forthcoming. Diagnosis is guarded. We will continue to follow make recommendations where appropriate. Plan dated 10/11/2020. The patient remains on mechanical ventilator. We will attempt to prone the patient today for 16 hours, to improve oxygenation. In addition, the patient is switched from pressure regulated volume control modality to volume assist control. Settings include tidal volume at 325, rate 32, FiO2 70%, PEEP of 14. A repeat blood gas to be done in an hour. Additional recommendations and suggestions are forthcoming. The patient is currently undergoing daily hemodialysis. Prognosis remains very poor. We will continue to follow make recommendations where appropriate. Plan dated 10/12/2020. The patient remains on mechanical ventilator. We'll see for can wean down the Nimbex. This seems like a high-dose to me. He should be doing [id number] monitoring. The patient is receiving hemodialysis today. Saturations are 95 and 96%. Peak airway pressures 41 cm water. Additional recommendations and suggestions are forthcoming. Prognosis is very guarded. She is getting nutrition at goal. The patient does better in terms of her saturations, when she is in the prone position. Today we will place her in the prone position again. Plan dated 10/13/2020. The patient remains on mechanical ventilator. She did not do well yesterday with prone because of the tracheostomy cuff leak. Her airway pressures are a bit lower today. She remains on Nimbex, propofol, and fentanyl. She is getting nutrition at goal. Today's blood gases are reasonable. She's currently getting daily hemodialysis. We will continue to follow. Additional recommendations and suggestions are forthcoming. We'll attempt to get the paralysis off. No addit ional recommendations are made at this time. Plan dated 10/14/2020. The patient remains on mechanical ventilator. Essentially, she's been stable on propofol, fentanyl, and Nimbex. She remains on vital AF at goal. She's been on and off norepinephrine through the night. Labs and x-rays from today are still pending. Vent settings has not changed. We will continue to follow make recommendations where appropriate. Overall prognosis remains very guarded. Plan dated 10/15/2020. The patient remains on the ventilator. She remains on propofol, fentanyl, and Nimbex. She's also on norepinephrine at 6 mg/m. We don't seem to be adequately paralyzing this patient. We will switch to a different paralytic. She did have hemodialysis yesterday. 4 L was removed. She'll have hemodialysis today. Once we have her properly paralyzed, the patient will have a repeat blood gas. I may end up increasing her rate up to 36. Overall prognosis remains very poor. Plan dated 10/30/2020. The patient will begin be placed on pressure support of 15 and CPAP of 5. She apparently did well with the settings late last week. The patient is being nourished at goal. A gases were not done. She remains on cefepime for the Acinetobacter. Overall prognosis remains very poor. The patient has profound weakness, and failure to wean from mechanical ventilation, secondary to critical illness polyneuropathy/myopathy. We are attempting to place the patient. Daily hemodialysis is hampering our efforts. Plan dated 10/31/2020. The patient has been on pressure support and CPAP of 15 and 5, since 2:00 yesterday. The patient appears to be doing well, and, it is stable hemodynamically. We are hoping for discharge tomorrow. No additional recommendations are made. She remains on cefepime for Acinetobacter. She has profound weakness, likely secondary to critical illness polyneuropathy/myopathy. Additional recommendations and suggestions are forthcoming. We will continue to follow make recommendations were appropriate. The patient has now been in the hospital for 51 days. Plan dated 11/01/2020. The chest x-ray from yesterday is reviewed. The patient remains on saline at 10 mL an hour, and vital AF at 46 mL an hour, which is goal. No blood gases today. Labs are reviewed. Currently, the patient's on pressure support of 15 cm water, and CPAP of 5 cm water, beginning at 8:00 this morning. Overnight, she was placed back on the ventilator, on the VC plus modality. She is receiving hemodialysis today. We are hoping for a possible discharge to long-term acute care. That has not been decided yet. The patient has been in the hospital for 52 days. We will continue to follow make recommendations where appropriate. Plan dated 11/02/2020. Currently, the patient remains on the VC plus mode of ventilation. Yesterday, she was placed on pressure support and CPAP and did well. She is awake and alert. She my opinion she's ready for discharge to long-term acute care. She's being nourished at goal. She's getting saline at KVO. She had hemodialysis yesterday in 4 L was removed. Chest x-ray stable and unchanged. Blood gases not been done recently. Laboratory data is reviewed. Prognosis is guarded. Additional recommendations and suggestions are forthcoming. The patient has been here in the hospital for now 53 days. Plan dated 11/03/2020. Currently, the patient has been on pressure support of 15 and CPAP of 5 and FiO2 40%, since yesterday. We will attempt some trach collar her trach shield today. The patient is getting saline at 10 mL an hour. Today he is a hemodialysis today. Labs are reviewed. No chest x-ray today. Oxygen exchange is good. Saturations are 100%. Awake and alert. We will continue to follow make recommendations where appropriate. The patient has been in the hospital now for 54 days. Plan dated 11/04/2020. The patient has now been here for 55 days. On a positive note, we've been able to transition her from support and CPAP, to a trach shield at 40%. She is getting hemodialysis, Friday, Friday, and Friday. From my perspective, the patient is stable to transfer to long-term acute care. Her most recent chest x- ray is stable. Labs, when done, have also been stable. She certainly is doing much better today than she has been over the last couple of weeks. Prognosis is still guarded. Additional recommendations and suggestions are forthcoming. We will continue to follow and make recommendations, where appropriate. Time with Patient: Greater than 30
[2020-11-04 12:04] LABS: Glucose,Whole Blood 145 mg/dL (75-99)
[2020-11-04] MEDS ORDERED: AMIODARONE 450 MG in DEXTROSE 5% IN WATER 250 ML IV SCH ×2 (12:15)
--- NOTE | 2020-11-04 12:49 | P.PN ---
Progress Note - Text Progress Note Date: 11/04/20 The patient is awake and breathing on room air. She will have her tracheostomy exchanged for a Shiley fenestrated trach per pulmonology
[2020-11-04] MEDS: CEFEPIME 1 GM in SODIUM CHLORIDE 0.9% 50 ML IVPB SCH (13:51)
--- NOTE | 2020-11-04 13:51 | XR ---
EXAMINATION TYPE: XR chest 1V portable DATE OF EXAM: 11/04/2020 COMPARISON: 10/31/2020 HISTORY: Pneumonia follow-up TECHNIQUE: Single frontal view of the chest is obtained. FINDINGS: Tracheostomy and right jugular CVC stable. New airspace disease in the right lower lobe. Worsening airspace disease in the left lower lobe. Mild pulmonary vascular congestion. A pneumothorax or pleural effusion. Cardiomediastinal silhouette is within normal limits. No acute osseous abnormality. IMPRESSION: 1. New airspace disease in the right lower lobe. 2. Worsening airspace disease in the left lower lobe. 3. Mild pulmonary vascular congestion
--- NOTE | 2020-11-04 13:52 | P.PN ---
Subjective Progress Note Date: 11/04/20 HISTORY OF PRESENT ILLNESS 35-year-old female patient of Dr. Arroyo with past medical history of type 2 diabetes comes in with acute shortness of breath associated with high light sugars. Patient on admission was found to have a fever of 101.5 pulse rate 125 respiratory rate 20. Blood pressure 132/106. On chest x-ray obtained in the ER suggestive of bilateral infiltrates concerning for call with pneumonia. COVID PCR was positive. On admissions patient had an ABG with a pH of 7.14 pCO2 of 20, pO2 of 59, bicarb of 7. Patient's blood sugar on admission was 424 on assessment today patient's blood work patient had a sodium 135 potassium 5.4 chloride 123 bicarb less than 5 and creatinine 0.73. D-dimer was elevated on admission patient 9 28 patient given 1 L of IV fluids followed by normal saline running at 200 mL/h. Patient was positive for acetone on admission. She will anion gap closed and was switched to D5NS. Insulin drip was continued during the night and was switched to patient's home medication this morning. One dose of remdesiver was ordered. Apparently around noon, A- team was called on the patient secondary to hypoxia patient's oxygen saturation dropped to the 70s and 80s on 100% nonrebreather. Patient was switched to BiPAP on 18/12 and is doing better o FiO2 of 80%. ABG was obtained and ph was 7. 14 pCO2 of 28 bicarb of 7 pO2 of 17. Patient noted to have uncompensated metabolic acidosis with compensated respiratory alkalosis. Stat dose of 1 amp bicarb was given and followed by sodium bicarbonate drip. Insulin drip restarted. Patient's initiated on dexamethasone 6 mg IV twice a day. Potassium phosphate ordered as phosphorus is low. Patient's repeat blood gases suggest a pH of 7.25, CO2 32 pO2 of 72 bicarb 14. I will not normal saline at 100 mL/h as patient's anion gap has increased. Patient given 1 dose of 2 mg of morphine with improvement in respiratory rate. One dose of Ativan 0.5 mg was given. Xanax 0.25 twice a day along with Ativan 0.5 IV every 6 hours ordered for the patient. Vitals were evaluated patient pulse 129 [id number]. She was moved to the ICU. Precedex drip was initiated. Lopressor was initiated at 25 twice a day. Metoprolol tartrate 5 mg IV every 6 hours. Systolic blood pressure more than 160. Started chest x-ray was obtained and suggest stable bilateral consolidation suggestive of COVID-19 pneumonia. 09/12 patient is seen in the ICU is currently mechanically ventilated and sedated on vent settings of respiratory rate 36, tidal volume 375 FiO2 80% PEEP of 18.. Vital signs reviewed patient had a temp of 100.4 pulse 150 respiratory rate 36 oxygen saturation 95% on 80% on fio2 .'s labs are reviewed which patient had a d-dimer 1.84 that is increased to 14.3. Arterial Blood gas suggest ph 7.35, CO2 40, po2 62, . Her BMP suggest a sodium 135 potassium 3.7 chloride 112 bicarb 21 creatinine 1.57 for calcitonin is 3.5 CRP is increased from 8.78.2 LDH is increased to 2614. Patient remains on Pneumovax, propofol drip. Lovenox increased to 50 subcu twice a day. Patient received 2 L of IV fluids. Continue IV fluids at 100 mL/h. Bicarb drip discontinued patient initiated on Zosyn 3.375 every 8 hours. Continue insulin drip at 4 units per hour. Patient is currently in prone positioning 09/13: Patient evaluated in the ICU remains on Ventilation continues to be sedated, in prone position. Vent settings are respiratory rate 36, tidal vital 375, FiO2 70% PEEP of 18. ABG shows pO2 of 82, PCO2 of 39, pH is 7.19. Latest labs show WBC 11.1, hemoglobin 13.2, d-dimer still pending, but yesterday was up to 14.3. Creatinine up to 3.4, BUN 24 sodium 137, potassium 4.0. Patient's urine output has been low, nephrology on consult. Bicarb drip increased to 100 miles an hour, receiving another liter of normal saline, she did have a ultrasound that showed unremarkable bilateral kidneys. Repeat chest x-ray showed bilateral lung infiltrates that are stable. Anion gap has closed, will start Lantus 10 units at at bedtime Novolog every 6 hours. 09/14: Patient is seen in the ICU, still currently mechanically ventilated and sedated. She continues in the prone position. Her oxygen quickly drops if she is not in prone. Patient's kidney function has worsened. Laboratory values show creatinine of 4.87, BUN 33, LDH 2191, C-reactive protein 2.7. ABG shows pH 7.32, pO2 of 60, pCO2 43. Patient is making almost no urine overnight. Nephrology is following patient continues on cefepime for urinary tract infection, culture is still pending. Vascular has been consulted for placement of temporary hemodialysis catheter for plans for dialysis. 09/15: Patient evaluated in the ICU, continues to be mechanically ventilated and sedated on assist control ventilation rate of 36, tidal volume 375, FiO2 100% and PEEP of 18. ABG today shows pO2 58, pCO2 of 45, and pH 7.35. She continues on tube feedings. Yesterday patient underwent ultrasound-guided right internal jugular non-tunneled hemodialysis catheter placement. Patient underwent hemodialysis treatment last night and plans have another hemodialysis treatment today. She continues to make almost no urine. She continues on cefepime for antibiotic coverage, and continues on Decadron and Lovenox. 09/16: Patient seen on follow-up remains in the ICU mechanically ventilated and sedated. She continues on assist control rate of 36, tidal volume 375, FiO2 100% and PEEP of 20. PEEP had to be increased due to patient had to be in supine position for dialysis, will go back to prone position once dialysis is complete. ABG shows pH 7.32, pCO2 49, PaO2 61. Laboratory values showed WBC 11.2, hemoglobin 11, sodium 134, creatinine 4.44, BUN 38. Urine culture shows no growth, blood cultures show no growth to date. Repeat chest x-ray shows bilateral pleural effusions, correlate for ARDS, pulmonary edema, diffuse pneumonia, findings are stable from last exam. Patient does not require any pressors, blood pressure 133/57, heart rate 78. 5/16: Patient was evaluated in the ICU today for follow-up. She continues to be intubated and on mechanical ventilation. Current vent settings are tidal volume 375, FiO2 100% and PEEP of 20. ABG shows pH 7.37, pCO2 40, pO2 102. She continues with intermittent prone positioning. Patient continues to have almost no urine output, maintained on dialysis. Patient received dialysis yesterday without complication. Laboratory values revealed WBC 10.3, hemoglobin 10.4, sodium 132, potassium 3.1, BUN 33, creatinine 4.29, LDH 1913, C-reactive protein 1.3. Urine and sputum cultures are negative, blood cultures show no growth to date. Consult placed to dietary to start TPN[ ] 09/18: She remains in the intensive care unit intubated and on mechanical ventilation with tidal volume 375, FiO2 60 and PEEP of 20. Patient is being prone to daily at approximately 16 hours per day. Pulmonary medicine has added in Dr. Zhang to do PEG tube and trach today. Patient is not on vasopressors. Repeat blood work reveals WBC 12.6, hemoglobin 9.8, platelet count 212. Sodium 133, potassium 3.2, chloride 102, CO2 21, BUN 35 and creatinine 4.12. Blood sugar 126. Patient underwent hemodialysis yesterday with removal of 2 L and is scheduled again today with goal of 2-3 L and is scheduled again tomorrow. 09/19: She is scheduled for hemodialysis today and is off fentanyl temporarily. Patient is status post trach and PEG tube yesterday. And she remains on mechanical ventilation. Pulse ox 93-95%. She has been afebrile, heart rate 64, respiratory rate 36, blood pressure 115/50. Fentanyl is off to improve blood pressure for hemodialysis which is scheduled for today. Contacted vascular surgery about permanent hemodialysis catheter. Repeat blood work reveals WBC 14.3, hemoglobin 9.6, platelet count 200. D-dimer 6.48. LDH 1686. C-reactive protein 1.1. BUN 34 creatinine 3.81. Sodium 130, potassium 3.5, chloride 101, CO2 18. Blood sugars running between 101 198. Plan is to wean off Pneumovax today. Patient remains on insulin drip. Repeat chest x-ray reveals bilateral multifocal confluent opacities consistent with COVID-19. Some improved aerati on periphery of the left lung and worsening opacities throughout the right lung. 09/20: She remains in the intensive care unit on mechanical ventilation. She has been afebrile, heart rate 65, respiratory rate 37, blood pressure 121/70, pulse ox 91-99%. Repeat blood work reveals WBC 14.5, hemoglobin 9.1, platelet count 216. D-dimer 6.13. Sodium 133, potassium 3.1, chloride 102, CO2 18, BUN 35 and creatinine 4.27. Blood sugars running between 128 and 143. LDH 1717. C- reactive protein 1.7. Patient remains on insulin drip which will be transitioned to NovoLog scale every 6 hours. Patient is scheduled for permanent hemodialysis catheter placement today with vascular surgery. Repeat chest x-ray reveals stable diffuse bilateral interstitial and airspace disease. Possible small right effusion. His work is following for transfer to [facility] facility. Do not anticipate discharge until next week. 09/21: Patient is undergoing hemodialysis. She remains on mechanical ventilation with tidal volume 375, FiO2 down to 45 and PEEP was decreased to 15. Patient is continued on propofol, fentanyl drips. She is on tube feedings at goal. Patient was taken off insulin drip yesterday and on scale only but blood sugars are running in the 200s, Levemir scheduled at bedtime will be added. Other blood work reveals WBC 13.3, hemoglobin 8.7, platelet count 192. Sodium 137, potassium 3.6, chloride 107, CO2 18, BUN 34 and creatinine 4.21. Repeat chest x-ray is stable. 09/22: She remains in the intensive care on mechanical ventilation with tidal volume 375, FiO2 of 50 and PEEP of 10. Pulse ox is running 96%. She is afebrile, heart rate in the 50s, respiratory rate 36, blood pressure 100/64. Repeat blood work reveals WBC 16.5, hemoglobin 8.9, platelet count 213. Sodium 134, potassium 3.7, chloride 103, CO2 21, BUN 34 and creatinine 3.89. Blood sugars running in the 200s to 324. Levemir increased to 16 units at bedtime and continue NovoLog scale every 6 hours. Patient is on tube feedings at goal. She has a Haley catheter in with a scant amount of dark/brown urine. Fecal management system is in place. Repeat chest x-ray reveals diffuse bilateral airspace infiltrates persist unchanged. Patient is scheduled for hemodialysis tomorrow morning on Friday. 09/23: Patient remains on mechanical ventilation with tidal volume 3.75, FiO2 50 and PEEP of 10. 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 She has no urine output. Fecal management system is in place. She is undergoing dialysis at this time with plan for removal of 2-1/2 L. She has been afebrile, heart rate in the 50s, respiratory rate 36, blood pressure 108/76 and pulse ox 89%. WBC 13.6, hemoglobin 9.1, platelet count 194. Sodium 136, potassium 3.0 and was replaced, chloride 106, CO2 21, BUN 49 creatinine 5.31. Blood sugars are running between 182 and this morning 194. Patient was still in the 200s and 300s. Levemir last evening was increased to 16 units. Patient remains on propofol and fentanyl dri ps. Lovenox was increased to 60 mg twice daily. 09/24: PEEP was increased today to 20, tidal volume is at 375 and FiO2 of 50%. Patient has been afebrile. She has been started on levo fed. Repeat chest x- ray reveals bilateral multifocal confluent opacities consistent with Covid 19 or ARDS redemonstrated. Nephrology will plan dialysis for tomorrow for 3 L. Patient remains on propofol fentanyl and Nimbex. WBC 12.5, hemoglobin 9.8, platelet count 161. D-dimer 13.3. Sodium 132, potassium 3.4, chloride 102, CO2 20, BUN 48 and creatinine 4.67. Blood sugars extremely elevated to 96-409. LDH 2217. 09/25: Patient remains in the intensive care unit on mechanical ventilation with tidal volume 375, FiO2 50 and PEEP of 20. Patient is afebrile, heart rate 61, respiratory rate 36, blood pressure 102/56, pulse ox 97%. Repeat blood work reveals WBC 9.3, hemoglobin 8.5 and platelet count 171. Sodium 130, potassium 3.7, chloride 100, CO2 20, BUN 61 creatinine 5.65. Blood sugars have been walt vated up to 455. Levemir increased to 20 units twice daily, NovoLog 5 units every 6 hours and continue NovoLog scale. Patient is scheduled for hemodialysis today. Repeat chest x-ray reveals bilateral multifocal and confluent opacities. Decadron and Lovenox dosing change by pulmonary. Patient is off norepinephrine. 09/26: Patient remains in the intensive care unit on mechanical ventilation with tidal volume 375, FiO2 50 and PEEP of 15. She has been afebrile, heart rate 91, blood pressure 114/68, pulse ox 99%. 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 Sodium 134, potassium 3.6, chloride 102, CO2 22, BUN 41 creatinine 4.21. Patient has improved blood sugars this morning running 150s and 160s. Diabetic medications were adjusted yesterday. Patient is awake and alert and interacting. Yesterday, patient had PICC line inserted by interventional radiology. Repeat chest x-ray reveals diffuse airspace infiltrates in both lung ann appear to progress slightly in the interval. 09/27: Patient remains in intensive care unit on mechanical ventilation with improvement of settings with tidal volume 375, FiO2 decreased to 40 and PEEP decreased to 10. Patient is on hemodialysis every other day and plan to remove 3 L today. Patient is more awake and alert. She is slow to respond but is able to follow simple commands. Blood sugars are running between 84 and 123. Repeat blood work reveals WBC 7.1, hemoglobin 8.1, platelets 152. Sodium 135, potassium 3.6, chloride 103, CO2 21, BUN 53 and creatinine 5.88. Repeat chest x -ray revealed cardiomegaly and pulmonary edema. Patient is on tube feedings:. Patient is not require vasopressors and is off sedation. Fecal management system remains in place for brown liquid stool. C. difficile was negative. 09/28: Patient remains on mechanical ventilation with tidal volume 375, FiO2 increased to 80 and PEEP increased to 18. Patient had a rough night was very anxious, no pain. Xanax 0.25 mg 3 times daily was added. There is concern for pulmonary embolism for which patient was started on heparin drip, she is unable to undergo CAT scan. Venous Doppler bilateral lower extremities was nondiagnostic due to extensive edema in obese patient but minimal imaging of the popliteal veins does show flow. Repeat echocardiogram has been ordered. Cefepime has also been ordered at 1 g IV piggyback every 24 hours as well as vancomycin, pharmacy dosing. Patient is back on fentanyl drip, propofol drip and norepinephrine. Blood sugars are elevated and insulin Levemir will be increased to 25 mg twice daily. Ferrlecit infusion has been ordered by nephrology for 4 days. Patient is undergoing hemodialysis today.temperature max 100.2, heart rate 134, respiratory rate 34, blood pressure 120/65, pulse ox 94%. reconstructive dentist is sinus tachycardia. Repeat blood work reveals WBC 16.9, hemoglobin 9.7, platelet count 216. D-dimer 8.81. Sodium 134, potassium 3.8, chloride 99, CO2 25, BUN 43 and creatinine 5.36. Blood sugars in the 200s. AST 40. 09/29 Patient had declined more last 48 hours require more sedation, patient is doing hemodialysis, respiratory failure is quite bit worse this time. Patient was inquired the pain is well back on fentanyl drip. Her vent set up with PEEP is limited but higher. No new finding on culture and her chest x-ray continues shows diffuse infiltrate persistent although there is a moderate interval improvement. 09/30 patient's was seen and evaluated. PEEP was reduced to 11 as patient is maintaining good saturation at the current vent settings. 10/01 patient was seen at bedside. She is currently on assist control rate of 28 white tidal volume 350 FiO2 50% and PEEP of 10 which has been reduced by pulmonary as patient name cleaning her oxygen saturation. Arm blood gas was obtained with a pH of 7.35 pCO2 37 pO2 of 63. She remains hemodynamically stable with no need for pressors. Labs were reviewed patient's BUN is 29 cre atinine 3.93 glucose 122 albumin 2.2 sodium 131 chloride 19 hemoglobin is downtrending with a Hb of 7.3 no leukocytosis 7.1. Patient's urine output is minimal at this time. Her rate has increased to 129 and is currently on positive fluid balance even with dialysis. Last dialysis was done yesterday. Continue enteral feeding currently at goal. Antibiotic has been discontinued and continues to remain on DEXA methicillin 4 mg IV daily. 10/02 patient continues to be on trach support with mechanical ventilation. Patient was evaluated by performance test consultant and was switched to VC control as patient was noted to be double stacking on and off throughout the night. Respiratory rate continue to 28 tidal volume increased to 400 with a PEEP for Dr. Downey. Patient is maintaining oxygen saturation 91% on the current setting. According to the nurse bedside patient saturation drops significantly or she is moved or her sedation is dropped. Patient is currently on propofol drip, fentanyl drip. She did underwent dialysis today and was able to maintain her low pressure without the need of pressors. Labs reviewed today suggest a WBC of 6.7 hemoglobin of 7.0 and d-dimer 3.9 bicarb 17 BUN 38 creatinine 4.8. LDH is 964. Sodium 1:30 likely secondary to volume overload. Urine sodium and urine osmolality ordered. Patient's glucose this morning is 146. Continue to remain on enteral feeding. Urine output is reduced. Fall catheter will be placed today. Continue to remain on dialysis. 10/03: Patient remains on mechanical ventilation and is back on propofol and fentanyl drips. Patient is currently on VC control with tidal volume 400, FiO2 55 and PEEP of 12. Patient still is not making any urine and is dialysis dependent with next treatment planned for tomorrow with removal of 3-3-1/2 L. PEG tube feedings are at goal. Fecal management system remains in place. At the time of evaluation, patient is off levophed. Repeat chest x-ray reveals stable diffuse bilateral airspace disease correlate for ARDS, pulmonary edema or diffuse pneumonia. Temperature max last evening was 101. Temperature currently 99, heart rate 106, respiratory rate 32, blood pressure 101/50, pulse ox 86%. Repeat blood work reveals WBC 6, hemoglobin 7.4, platelet count 160. D-dimer 4.05. Sodium 133, potassium 3.5, chloride 100, CO2 23, BUN 31 creatinine 3.8. Blood sugars are running between 100 and 170. Ferritin 1514. Liver function test normal. LDH 1016, C-reactive protein 13.6. Prognosis remains guarded. 10/04: Patient remains intubated on mechanical ventilation with tidal volume 400, FiO2 65, PEEP of 14. Patient continues to run fevers and repeat blood culture and urine and urine culture ordered for today. Haley catheter has been removed this patient has no significant urine output at about 20 mL per shift. BladderScan is monitored for greater than 300 and the patient is straight cathed. Hemoglobin is 6.8 and she has been ordered 41 unit of packed RBCs today. She is currently on propofol and fentanyl drips. She is scheduled for hemodialysis today. WBC 4.5, hemoglobin 6.8, platelet count 151. D-dimer 3.28. Sodium 132, potassium 4.1, chloride 100, CO2 22, BUN 37 creatinine 4.74. Blood sugars running between 97 and 110. Ferritin 1801. LDH 859. C-reactive protein 14.4. Chest x-ray reveals correlate for pneumonia, edema, ARDS. Prognosis remains guarded. 10/05: Patient remains in intensive care unit currently on mechanical ventilation with tidal volume 400, FiO2 was increased to 100 and PEEP is at 14. She continues to run fevers which have worsened with temperature max 103.1. She has been tachycardic in the 130s, blood pressure is marginal but not on vasopressors. Pulse ox currently 92%. Repeat blood work reveals WBC 5.5, hemoglobin 7.6, platelet count 190. D-dimer 2.7, ferritin 1770, LDH 932, C- reactive protein 21.4. Blood sugars are running between 100 1669. Electrolytes are normal. BUN 27 and creatinine 3.79. Pancultures were done yesterday including a straight cath for urine culture, sputum culture and blood culture. Arterial line was removed as well as midline. She is currently on propofol, fe ntanyl and started on Nimbex today. 10/06: Patient remains in the intensive care unit. Today patient in prone position and remains on mechanical ventilation with tidal volume 350, FiO2 65 and PEEP of 14. Her last documented fever was yesterday at 2 PM. Heart rate is in the 120s, respiratory rate 32, pulse ox 88-92%. CBC is unremarkable. Electrolytes are normal. BUN 30 creatinine 2.93. Blood sugars are running between 135 and 164. Cultures from October 04: Blood culture no growth, sputum culture finalized, urine culture finalized. Catheter tip culture is in process. Repeat chest x-ray shows bilateral interstitial infiltrates. Patient is on tube feedings of Nepro at goal of 30 ML's per hour. Patient underwent dialysis yesterday and is scheduled for repeat dialysis today. 10/07: Patient maintains in the intensive care unit intubated and on mechanical ventilation. She is receiving hemodialysis this morning has been every day. Plan is to remove 2-1/2 L today. Vent settings have changed today with tidal volume 350, FiO2 was increased to 100% and PEEP remains at 14. She has been continued on Nimbex, fentanyl, norepinephrine and propofol. Plan is to prone position patient following dialysis. Repeat chest x-ray reveals worsening interstitial infiltrates. BUN is 26 and creatinine 2.59. LDH 955, C-reactive protein 22.1. Prognosis remains poor. 10/08: Patient remains in intensive care unit intubated and on mechanical ventilation with tidal volume 350, FiO2 60, PEEP of 14. She is pronating today. She is scheduled for hemodialysis on a daily basis. She has been afebrile, heart rate 112, respiratory rate 36, blood pressure 161/88, pulse ox 93%. Repeat blood work reveals WBC 9.9, hemoglobin 9.1, platelet count 320. Sodium 133, potassium 5.3, chloride 100, CO2 20, BUN 29 creatinine 2.44. Blood sugar running between 102 and 139. LDH 1026, C-reactive protein 19.7. 10/09: Patient is undergoing dialysis this morning. She continues to be intubated and on mechanical ventilation with tidal volume 350, 270 and PEEP of 14. Patient is also on propofol, Nimbex, norepinephrine and fentanyl drips. Repeat chest x-ray reveals persistent bilateral multifocal and confluent opacities consistent with Covid 19. She is afebrile, heart rate 116, respiratory rate 36, blood pressure 120/65, pulse ox 91%. Repeat blood work reveals WBC 5.4, hemoglobin 9.2, platelet count 216. D-dimer 2.67, ferritin 2568, LDH 794, C- reactive protein 13.9. Blood sugars have been running 90-104. Creatinine 1.64. She is on daily dialysis treatment. 10/10: She remains in the intensive care unit. She is now out of isolation as a repeat Covid test came back negative. She remains on mechanical ventilation with tidal volume 350, FiO2 70 and PEEP of 14. Patient is also on Nimbex, propofol, norepinephrine, fentanyl drips. She is on PEG tube feedings at goal and tolerating well. Repeat blood work reveals WBC 7.8, hemoglobin 7.5, platelet count 267. Sodium 139, potassium 3.9, chloride 109, CO2 20, BUN 20 creatinine 1.29. Blood sugars are running between 76 and 102. Scheduled Nov oLog decreased to 3 units. Repeat chest x-ray reveals moderate cardiomegaly and continued pulmonary edema. Slight interval improvement. Patient is continued on daily hemodialysis. 10/11: Patient remains in intensive care unit on mechanical ventilation with tidal volume 325, FiO2 70, PEEP 14. She is currently being prone. She underwent hemodialysis this morning with removal of 4 L of fluid with plan to continue daily treatment. She is currently on Nimbex, fentanyl and propofol. No vasopressor at this time. Fecal management system remains in place. She is on tube feedings currently at hold due to prone positioning. Patient has been afebrile, heart rate 116, respiratory rate 36, blood pressure 100/58, pulse ox 93-96%. Repeat blood work reveals WBC 9.3, hemoglobin 8.1, platelet count 276. Sodium 136, potassium 4.3, chloride 103, CO2 20, BUN 20 creatinine 1.14. Blood sugars running between 133 and 202. 10/12: Patient remains in the intensive care unit. She is undergoing hemodial ysis this morning. She's been afebrile, heart rate in the 120s, respiratory rate 32, blood pressure 102/65. She is not on vasopressors. She is continued on Nimbex, fentanyl and propofol. Vent settings are currently tidal volume 325, FiO2 70, PEEP 14. Total platelet count 273. Sodium 133, potassium 4.7, chloride 100, CO2 19, BUN 21 creatinine 0.91. Blood sugars running between 121 and 143. 10/13: Patient remain in the ICU she is on hemodialysis daily, she is still on the vent with a PEEP of 14 and FiO2 of 70. Her oxygenation is marginal pulse rate still high. Patient had scratched cornea was seen in ophthalmology decided to keep doing eyedrops along with eye patch at this point. Prognosis still very bad this point. 10/14: She remains on mechanical ventilation with tidal volume 325, FiO2 70% and PEEP of 14. She did require label fed last evening for about 6 hours. She did not tolerate pronating yesterday. She is undergoing dialysis this morning with plan for removal of 4 L. Blood sugars have been low and IV fluids changed to D10 until blood sugars have recovered. Levemir and scheduled NovoLog discontinued. Patient is on tube feedings at goal there's been no change in t his. 10/15 patient remains on mechanical ventilation in the intensive care unit. FiO2 still at 70%, PEEP of 18. Blood sugars have improved since medications were adjusted. White blood cells 33.9, hemoglobin 8.5, sodium 135, BUN 19, creatinine 0.96. Patient to receive dialysis again today. Patient did run a low-grade fever throughout the night and pro calcitonin level is ordered. Chest x-ray showed continued diffuse bilateral airspace disease. Patient remains on tube feedings at goal. 10/16: Patient remains on mechanical ventilation with tidal volume 300, FiO2 70, PEEP of 15. Fecal management system is out. She is currently on low dose of norepinephrine. She is also on fentanyl drip, propofol drip, rocuronium drip. Heart rate is running in the 130s, sinus rhythm, blood pressure 121/63, pulse ox 95%. Patient is been afebrile. Repeat blood work reveals WBC 18.9, hemoglobin 7.5, platelet count 291. Sodium 135, potassium 4.2, chloride 101, CO2 19, BUN 25 and creatinine 1.36. Blood sugars are running between 143 and 199. Patient is on scale insulin only. Repeat chest x-ray reveals persistent bilateral multifocal and completed opacities consistent with Covid 19. 10/17: Patient remains on mechanical ventilation with tidal volume 300, FiO2 50, PEEP of 14. She is currently receiving hemodialysis. The patient is having yellow-colored drainage from the trach site. This is going to be culture today. Repeat blood work reveals WBC of 24, hemoglobin 7.3 and platelet count 310. Sodium 136, potassium 4.1, chloride 101, CO2 19, BUN 24 creatinine 1.43. Blood sugar 139. Capillary blood glucose running 147 and 189. Repeat chest x-ray is unchanged. Patient had increased respiratory rate 40s and 50s with oxygen saturation of 87 and now was increased and Seroquel added this morning. Prognosis remains guarded. 10/18: Patient remains on mechanical ventilation with tidal volume 300, FiO2 60, PEEP has been decreased to 12. Patient will need a PEEP of 8 in order to tr ansfer to long-term care. She is currently on fentanyl drip and Precedex drip. Patient is tracking when her name is stated. She seems to be slightly improved today. Patient has been afebrile, heart rate 106, respiratory rate 32, blood pressure 110/61, pulse ox 98%. Repeat blood work reveals WBC 30.3, hemoglobin 7.2, platelet count 350. Sodium 139, potassium 4.2, chloride 103, CO2 20, BUN 23 creatinine 1.79. Blood sugars are increasing running up 299. Patient will be placed on Levemir. Secretions from tracheotomy sent for culture and in process. She is currently undergoing hemodialysis. 10/23: Patient remains in the intensive care unit on mechanical ventilation with tidal volume 300, FiO2 65 and PEEP of 10. reconstructive dentist has been in a sinus rhythm. Patient does open her eyes and appears to be tracking. Blood sugars have been elevated. Levemir will be increased to 40 units daily and scheduled NovoLog increased to 12 units and continue NovoLog every 6 hours per scale. Dariana woodward is receiving hemodialysis today. She is not currently on vasopressors. Patient is on Precedex drip only. Antibiotics in the form of cefepime were started on October 18. Patient has been afebrile, heart rate 126, respiratory rate 36, blood pressure 163/105. Pulse ox 91%. Repeat blood work reveals WBC 16.0, hemoglobin 7.2, platelet count 208. Electrolytes are within normal limits. BUN 62 and creatinine 2.43. Blood sugars running between 259-321. Most recent blood culture from [facility] 20 is no growth at 24 hours. Repeat chest x-ray reveals cardiomegaly and persistent bilateral pulmonary edema. 10/24: Patient is awake, eyes are open and tracking, she is able to follow simple commands. Severe generalized weakness noted. Precedex gtt has been discontinued. Patient is receiving hemodialysis. Her blood sugars have remained elevated for which Levemir increased to 25 units twice daily along with 15 units of NovoLog every 6 hours along with scale. Tidal volume 330, FiO2 60, PEEP of 8. release manager and nursing home social worker following closely. Anticipate possible discharge by the end of next week to long-term care facility. 10/25: Patient remains in the intensive care unit on mechanical ventilation. Tidal volume 350, FiO2 60, PEEP 8. She is receiving hemodialysis this morning. Her heart rate remains elevated in the 130s. Pulmonary as started her on Cardizem at 60 mg 3 times daily which has not had any improved effect. We'll start the patient on Lopressor 25 mg twice daily. Patient has been afebrile, heart rate respiratory rate 32, blood pressure 151/91, pulse ox 98%. Patient is been transfuse 1 unit of packed RBCs today. Patient's mental status is improving and patient is able to follow simple commands. WBC 12.2, hemoglobin 6.3, platelet count 196. Sodium 135 otherwise looked lites are normal, BUN 48 creatinine 1.99. Blood sugars are running between 120 and 172. Levemir has been increased to 30 mg twice daily continue 15 units of NovoLog every 6 hours with scale. 10/26: Patient remains in intensive care unit, on mechanical ventilation with tidal volume 375, FiO2 50, PEEP of 8. Patient's heart rate remains elevated 120s and Lopressor increased to 50 mg twice daily. Patient seems to be quite anxious and depressed. We will decrease Seroquel to 50 mg twice daily and start patient on Lexapro. Patient received her first dose of Xanax this morning but this did not seem to help heart rate either. She has been afebrile, heart rate 128, blood pressure 149/79, pulse ox 93%. Repeat hemoglobin 7.3. Sodium 135, potassium 3.9, chloride 90, CO2 30, BUN 45 and creatinine 1.94. Blood sugar are improved running between 117-194. We will make further adjustments to insulin and to increase long-acting to 35 units twice daily and decrease NovoLog scheduled to 7 units and continue NovoLog scale. There are problems with patient's trach and consequently placed with [facility]. General surgery to reevaluate trach. 10/27: Patient is complaining of nausea today. Concerned that this is related to Lexapro. We will further decrease Seroquel to 50 mg at bedtime. Patient is being bladder scanned and last bladder scan wasn't 125 mL. She does not have Fo alexander catheter. No fecal management system. She is having a bowel movement about 3 per day. Plan is for CPAP trial today. She is currently on mechanical ventilation with tidal volume 375, FiO2 50 and PEEP of 8. She has been afebrile, heart rate 105 which is much improved from the last few days. Blood pressure 145/88, pulse ox 94%. There is a new consult in place for Dr. Clemente regarding exchanging the trach and possible debridement at site. WBC 11.4, hemoglobin 8.2, blood count 218. Sodium 136, potassium 4.1, chloride 97, CO2 31, BUN 47 creatinine 1.97. Blood sugars running between 129 and 204. We have changed long acting insulin to 35 units twice daily and continue NovoLog 7 units every 6 hours and scale every 6 hours. Nephrology may be decreasing frequency of dialysis treatments. Anticipate probable discharge to long-term care next week. 10/28: Patient was complaining of nausea today which has resolved. CPAP trial will continue today. She is currently on mechanical ventilation with a tidal volume 375, FiO2 of 50, PEEP of 8. She is afebrile, heart rate 108 which continues to show improvement. Blood pressure 133/87, pulse ox 99%. Patient is able to follow commands. And answers appropriately with nodding her head. WBC 10.5, hemoglobin 8.0, potassium 4.6, BUN 46, creatinine 1.96. Patient is currently receiving hemodialysis. 10/29: Patient was found sitting up in bed. Able to answer some questions appropriately. Utilizing kim. Able to follow commands. Howell over elevated blood sugars. Levemir 35 units twice a day will continue at this with a 7 unit coverage. Patient remains afebrile. Heart rate 102, respirations 29, blood pressure 124/74, pulse ox 97% on mechanical ventilation. Mechanical ventilation settings with a tidal volume 375, FiO2 of 50 and a PEEP of 8. Family has been into see patient. Hemodialysis will be held today. 10/30: Patient remains in the ICU on mechanical ventilation. She is not requiring pressure support. She is on CPAP support. She is receiving hemodialysis this morning with plan to start a Friday schedule this week. Blood sugars are stable and running between 140 and 184. She is on tube feedings at goal and having bowel movements every 12 hours. Repeat blood work reveals WBC 8.9, hemoglobin 10.2, platelet count 258. Sodium 133, potassium 5.0, chloride 97, CO2 23, BUN 69 creatinine 2.67. 10/31: Patient is seen today in intensive care unit. She remains on mechanical ventilation with tidal volume 375, FiO2 45 of PEEP of 5. Patient is found sitting in a chair working with physical therapy. Patient is noted to have left arm weakness without pain and good sensation. She is not receiving dialysis today and will be started on Friday regime. Patient's heart rate is better controlled in the 80s, blood pressure 113/65, pulse ox 99%. Patient is been afebrile. Patient has been on cefepime. Repeat blood work reveals WBC 9.3, hemoglobin 6.9 and patient is transfused 1 unit of packed RBCs today. Platelet count 248. Electrolytes are within normal range, BUN 38 and creatinine 2.04. Her blood glucose running between 130 and 193. AST 38. Social work is working with the daughter regarding discharge planning. 11/01: A she was undergoing dialysis with plan for 3 L removed today and dialysis is scheduled Friday. She is in bed and appears to be comfortable. She is able to talk and express herself and is cognitively intact. She remains on mechanical ventilation. She has been afebrile, heart rate 107, blood pressure 115/85, pulse ox 99%. Repeat blood work reveals WBC 8.5, hemoglobin 7.5, platelet count 278. Sodium 136, potassium 4.8, chloride 100, CO2 27, BUN 55 creatinine 2.81. Blood sugar running between 114 and 185. C alcium 10.3, total bilirubin 0.2, AST 34, ALT 34, alkaline phosphatase 144. Social work is working on discharge planning which will be to [facility], [facility] or [facility]. 11/02: Patient remains in the intensive care unit on mechanical ventilation with t idal volume 375, FiO2 40, PEEP of 5. Patient's mental status continues to be improved. She has been afebrile, heart rate 97, blood pressure 144/86, pulse ox 98%. Repeat blood work reveals WBC 8.3, hemoglobin 7.2, platelet count 255. Sodium 135, potassium 4.5, chloride 98, CO2 20, BUN 42 and creatinine 2.36. Blood sugars are running between 124 278. She is scheduled for hemodialysis tomorrow with plan for 4 L to be removed. Social work is working on discharge plan and once patient has been accepted and insurance authorization is obtained if needed, patient will be discharged. 11/03: Patient remains in intensive care unit on mechanical ventilation patient is currently on pressure support of 15, CPAP of 5 and FiO2 of 40%. A trach collar is to be attempted today in order to get the patient discharged to [facility] care facility. Land is for medical Novi Mckinley on Friday if patient continues to improve. He has been afebrile, heart rate in the 80s, blood pressure 90/57, pulse ox 100%. Repeat blood work reveals WBC 7.5, hemoglobin 6.9, platelet count 255. Sodium 133, potassium 5.1, chloride 97, CO2 27, BUN 59 creatinine 3. Blood sugars up and running 117 164. 11/04 patient remains in ICU, this is day number 55, pulmonary is following closely, they have recommended fenestrated trach, for which Dr. warren is going to perform, patient is anticipated to be discharged to long-term care facility, most likely early next week. She is stable, with no new fevers, antibiotics has been completed, blood sugars are stable, hemoglobin 7.7, WBC 8.5, blood sugars running between 145-150, creatinine of 2.34 REVIEW OF SYSTEMS Constitutional: No fever, no chills, no night sweats. No weight change. Profound weakness, + significant fatigue no lethargy. Reported daytime sleepiness. EENT: No headache. No loss of vision. No loss of Hearing. No nasal drainage or congestion. No epistaxis. No sore throat. Lungs: No shortness of breath, cough, no sputum production. No wheezing. Cardiovascular: No chest pain, no lower extremity edema. No palpitations. No paroxysmal nocturnal dyspnea. No orthopnea. No lightheadedness or dizziness. No syncopal episodes. Abdominal: No abdominal pain. No nausea, vomiting. No diarrhea. No constipation. No bloody or tarry stools. loss of appetite- peg tube. Genitourinary: No dysuria, increased frequency, urgency. No urinary retention. Minimal urine production Musculoskeletal: No myalgias. Noted muscle weakness, noted gait dysfunction, no frequent falls. No back pain. No neck pain. Integumentary: Positive wound-decubitus ulcer, trach wound. No rash or pruritus. No unusual bruising. No change in hair or nails. Neurologic: No aphasia. No facial droop. Noted change in mentation-improved. No head injury. No headache. No paralysis. No paresthesia. Psychiatric: suspected depression. positive anxiety. Endocrine: Noted abnormal blood sugars-stable and monitored. Objective - Vital Signs Vital signs: Vital Signs Temp 98.2 F 11/04/20 12:00 Pulse 104 H 11/04/20 13:00 Resp 22 11/04/20 13:00 BP 150/90 11/04/20 13:00 Pulse Ox 96 11/04/20 13:00 Intake & Output 11/03/20 11/04/20 11/04/20 18:59 06:59 18:59 Intake Total 764 652 468 Output Total 3000 0 0 Balance -2236 652 468 Weight 87.7 kg 85.6 kg Intake: IV 170 120 20 0.9 Normal Saline @ KVO 120 120 20 Cefepime 1 gm In Sodium 50 Chloride 0.9% 50 ml @ 12. 5 mls/hr IVPB Q24H [facility] Rx #:[id number] Tube Feeding 504 442 238 Other 90 90 210 Output: Urine 0 0 0 Hemodialysis 3000 ABP, PAP, CO, CI - Last Documented Arterial Blood Pressure 136/76 - Constitutional General appearance: Present: cooperative, no acute distress - EENT Eyes: Present: EOMI, PERRLA ENT: Present: NA/AT - Respiratory Respiratory: bilateral: CTA, negative: dullness, rales, rhonchi - Cardiovascular Rhythm: regular Heart sounds: normal: S1, S2 - Gastrointestinal General gastrointestinal: Present: normal bowel sounds, soft - Integumentary Integumentary: Present: normal - Musculoskeletal Musculoskeletal: Present: generalized weakness - Psychiatric Psychiatric: Present: appropriate affect - Labs CBC & Chem 7: 11/04/20 04:37 11/04/20 04:37 Labs: Abnormal Lab Results - Last 24 Hours (Table) 11/03/20 11/04/20 11/04/20 Range/Units 17:56 00:12 04:37 RBC 2.75 L (3.80-5.40) m/uL Hgb 7.7 L (11.4-16.0) gm/dL Hct 24.3 L (34.0-46.0) % RDW 16.9 H (11.5-15.5) % Sodium (137-145) mmol/L Chloride (98-107) mmol/L BUN (7-17) mg/dL Creatinine (0.52-1.04) mg/dL Glucose (74-99) mg/dL POC Glucose (mg/dL) 139 H 150 H (75-99) mg/dL 11/04/20 11/04/20 11/04/20 Range/Units 04:37 06:21 12:02 RBC (3.80-5.40) m/uL Hgb (11.4-16.0) gm/dL Hct (34.0-46.0) % RDW (11.5-15.5) % Sodium 132 L (137-145) mmol/L Chloride 96 L (98-107) mmol/L BUN 41 H (7-17) mg/dL Creatinine 2.34 H (0.52-1.04) mg/dL Glucose 116 H (74-99) mg/dL POC Glucose (mg/dL) 173 H 145 H (75-99) mg/dL Assessment and Plan Plan: ASSESSMENT AND PLAN 1. Acute hypoxic respiratory failure secondary to Covid 19 pneumonia and possible bacterial pneumonia. Plan for fenestrated trach collar prior to tr ansfer to subacute rehab long-term stay Patient was intubated on September 11. She is status post 1 dose of Remdesivir and 1 dose of Tocilizumab. Continue Ventolin inhaler 4 times daily, Lovenox 30 mg subcu daily, supplements. Status post PEG tube and trach. Completed cefepime for a Citrobacter pneumonia. 2. Acute diabetic ketoacidosis secondary to Covid 19 pneumonia, controlled with hyperglycemia. Levemir 35 units twice daily and scheduled NovoLog increased to 7 units every 6 hours and continue NovoLog scale every 6 hours. 3. Metabolic encephalopathy secondary to Covid 19 and DKA. 4. Sepsis and septic shock secondary to Covid 19 pneumonia with multiorgan failure. Continue as in #1. Trach drainage cultured. General surgery on consult. 5. Acute metabolic acidosis secondary to acute DKA, Covid 19 and acute kidney injury. Renvela 1600 mg q6h. 6. Diabetes mellitus type 2 uncontrolled with A1c 13.6. Continue as above. 7. Hypophosphatemia status post replacement. 8. Hyperkalemia secondary to DKA, resolved. 9. Sinus tachycardia secondary to sepsis, volume deficiency. Patient is on Cardizem 60 mg 3 times daily, and Lopressor 50 mg twice daily. 10. Acute kidney injury secondary to ATN secondary to Covid 19 and DKA. Continue hemodialysis on Friday. 11. Citrobacter gram-negative pneumonia versus MRSA pneumonia. Completed course of antibiotics. 12. Hypertension. 13. Morbid obesity with BMI of 53. 14. Situational depression and anxiety. Seroquel decreased to 50 mg at bedtime, continue Lexapro 10 mg daily and Xanax 0.25 mg twice daily as needed. 15. DVT prophylaxis. Lovenox. 16. GI prophylaxis. Protonix 40 mg IV push daily. 17. Stage IV pressure ulcer to trach site. Currently utilizing absorptive silver dressing. 18. Stage II decubitus ulcer to coccyx. 19. Critical illness polyneuropathy and myopathy. Continue physical therapy. 20. Anemia of chronic disease. Status post Transfusiob of packed RBCs, continue Aranesp 40 g every 7 days. CODE STATUS: Full code Prognosis guarded. DISCHARGE PLAN [facility] on Friday.
[2020-11-04 17:57] LABS: Glucose,Whole Blood 145 mg/dL (75-99)
[2020-11-04] MEDS: QUEtiapine 50 MG TAB PO SCH (21:23)
[2020-11-05] MEDS: INSULIN ASPART (NovoLOG) 100 UNIT/ML VIAL SQ SCH ×10 (00:18→23:51)
[2020-11-05 00:19] LABS: Glucose,Whole Blood 130 mg/dL (75-99)
[2020-11-05] MEDS: NYSTATIN 100,000 UNIT/ML SUSP 500,000 UNIT/5 ML CUP PO SCH ×5 (00:19→23:52)
[2020-11-05] MEDS: SEVELAMER 800 MG TAB PO SCH ×5 (00:19→23:52)
[2020-11-05] MEDS: HYDROmorphone 0.5 MG/0.5 ML SYRINGE IVP PRN ×4 (00:31→10:54)
[2020-11-05] MEDS: diphenhydrAMINE 50 MG/ML 1 ML VIAL IVP PRN ×3 (03:40→23:52)
[2020-11-05 06:18] LABS: Glucose,Whole Blood 121 mg/dL (75-99)
[2020-11-05] MEDS: INSULIN DETEMIR (LEVEMIR) 100 UNIT/ML SYR SQ SCH ×2 (06:37→20:03)
[2020-11-05] MEDS: ALBUTEROL HFA INHALER INHALATION SCH ×4 (08:00→20:43)
[2020-11-05] MEDS: CHLORHEXIDINE GLUCONATE 15 ML CUP MUCOUS MEM SCH ×2 (08:27→20:01)
[2020-11-05] MEDS: DILTIAZEM ORAL 60 MG TAB PO SCH ×3 (08:27→21:56)
[2020-11-05] MEDS: ENOXAPARIN 30 MG/0.3 ML SYRINGE SQ SCH (08:27)
[2020-11-05] MEDS: PANTOPRAZOLE 40 MG/10 ML VIAL IVP SCH ×2 (08:27→20:02)
[2020-11-05] MEDS: METOPROLOL TARTRATE 50 MG TAB PO SCH ×2 (08:27→20:01)
[2020-11-05] MEDS: CHOLECALCIFEROL 25 MCG (1000 IU) TABLET PO SCH (08:27)
[2020-11-05] MEDS: ASCORBIC ACID 500 MG TAB PO SCH ×2 (08:27→20:01)
[2020-11-05] MEDS: ESCITALOPRAM 10 MG TAB PO SCH (08:28)
[2020-11-05] MEDS: HYDROPHILIC CREAM 180 GM TUBE TOPICAL SCH (08:28)
[2020-11-05] MEDS: NYSTATIN 100,000 UNIT/GM POWD 15 GM TOPICAL SCH ×3 (08:28→21:56)
--- NOTE | 2020-11-05 08:40 | P.PN ---
Subjective Patient is seen in follow-up for acute kidney injury. Oliguric. Status post tracheostomy and PEG tube placement this admission. Receiving tube feeding. Off vent. No changes overnight. Vital signs: Stable. General: The patient appeared well nourished and normally developed. HEENT: Tracheostomy noted. LUNGS: Breath sounds decreased. HEART: Regular rate and rhythm. Abdomen: Soft, no distention. EXTREMITITES: Trace edema. Objective - Vital Signs Vital signs: Vital Signs Temp 98.3 F 11/05/20 08:00 Pulse 99 11/05/20 08:00 Resp 15 11/05/20 08:00 BP 172/106 11/05/20 08:00 Pulse Ox 98 11/05/20 08:00 Intake & Output 11/04/20 11/05/20 11/05/20 18:59 06:59 18:59 Intake Total 938 568 68 Output Total 0 0 0 Balance 938 568 68 Weight 86.6 kg Intake: IV 220 50 0.9 Normal Saline @ KVO 20 Cefepime 1 gm In Sodium 200 50 Chloride 0.9% 50 ml @ 12. 5 mls/hr IVPB Q24H [facility] Rx #:[id number] Tube Feeding 408 408 68 Other 310 110 Output: Urine 0 0 0 Other: Voiding Method External Catheter # Voids 1 ABP, PAP, CO, CI - Last Documented Arterial Blood Pressure 136/76 - Labs CBC & Chem 7: 11/04/20 04:37 11/04/20 04:37 Labs: Abnormal Lab Results - Last 24 Hours (Table) 11/04/20 11/04/20 11/05/20 Range/Units 12:02 17:55 00:17 POC Glucose (mg/dL) 145 H 145 H 130 H (75-99) mg/dL 11/05/20 Range/Units 06:17 POC Glucose (mg/dL) 121 H (75-99) mg/dL Assessment and Plan Plan: Assessment: 1. Acute kidney injury secondary to ATN secondary to COVID-19 and DKA. Baseline creatinine is near 1. Started on hemodialysis on September 14. Has p-cath. Oliguric. No hydronephrosis noted on kidney ultrasound. 2. DKA s/p insulin drip and IV fluids. 3. Acute hypoxic respiratory failure secondary to COVID-19 pneumonia. Status post tracheostomy this admission. 4. Metabolic acidosis secondary to acute kidney injury and DKA s/p bicarb drip. Improved postdialysis. 5. Hyponatremia, hypervolemic. Stable. 6. Hyperphosphatemia secondary to acute kidney injury. Maintained on Renvela. 7. Anemia of chronic illness and kidney disease. Maintained on Aranesp. Iron deficiency noted - s/p iv iron. Status post blood transfusion this admission. 8. Fluid overload. Improved with ultrafiltration. Plan: Hemodialysis tomorrow. Maintain tube feeds. Avoid nephrotoxins. Continue to monitor renal function and urine output. Monitor for renal recovery.
--- NOTE | 2020-11-05 10:00 | P.PN ---
Subjective Progress Note Date: 11/05/20 Principal diagnosis: Acute respiratory failure secondary to Covid 19 pneumonia. Patient was reevaluated today on 10/05/2020, remains in the ICU, intubated, mechanically ventilated, patient is doing worse today compared to the last few days, her chest x-ray is worsening, her O2 requirement is rising and she is back on the percent FiO2, I have also increased her PEEP to 16, assist control rate was increased to 52, FiO2 is on the percent. ABG earlier today on 70% FiO2 showed a pO2 of 56 pCO2 of 50 pH of 7.32. She was on assist control rate of 28 tidal volume of 400 FiO2 70% and PEEP of 14. Patient had to be placed on a higher dose of propofol which was increased to 70 fentanyl is at 2 mcg/kg/m, patient will be placed on Nimbex as I'm having difficulty oxygenating the pat ient in spite of high FiO2. She is scheduled to undergo hemodialysis again today, she had 4 L off yesterday. Remains on tube feeds using vital AF at 30 MLS per hour. Patient is tachycardic rate is 129, blood pressure is marginal 86/45, hence may recommend adding norepinephrine. The overall picture clearly showing deterioration in this patient's clinical status, and I have a feeling that this patient will continue to do poorly and she is now maximized on treatment. Again her chest x-ray is showing significant worsening of her infiltrates. Patient was reevaluated today on 10/06/2020, remains in the ICU, intubated and mechanically ventilated, and she is presently in prone position since last night for the next few hours until dialysis which is supposed to start sometime in the next couple of hours. Patient remains on assist control mode of mechanical ventilation, it is volume control with volume of 350 rate of 3 to FiO2 65%. 14. Her ABG showed a pO2 of 68 pCO2 of 52 pH of 7.28. Patient remains on propofol at 75 fentanyl at 3 mcg/kg/h she is also on norepinephrine at 0.02 and Nimbex at 3 mcg/kg/m. Patient is scheduled to have hemodialysis today. Chest x-ray continues to show evidence of bilateral interstitial infiltrates. Patient is on enteral feeding in the form of Nepro at 30/30. Patient has been proned now for the last 17 hours. Electrolytes are normal however her BUN is 30 creatinine 2.93. Blood sugar is 147 WBC count is 5.1 hemoglobin is 11.4. Patient remains on the COVID-19 cocktail. Remains on albuterol, Symbicort, Decadron 4 mg IV push daily, Lovenox 30 mg subcu daily. Insulin protocol. Her tonic 40 mg IV push daily. Off antibiotics. Patient was reevaluated today on 10/07/2020, remains in the ICU, intubated and mechanically ventilated, presently receiving hemodialysis. She is on assist control rate of 32, tidal volume of 350, FiO2 is up to on the percent today, and PEEP of 14. Higher PEEP did not seem to help much, hence I kept her on a PEEP of 14. ABG today showed a pO2 of 63 pCO2 53 pH of 7.25. A shunt is on Nimbex at 4 mcg/kg/m, fentanyl 3 mcg/kg/h, norepinephrine at 0.07 mcg/kg/m, propofol at 75 mcg/kg/m. Again the patient is receiving hemodialysis, and I have instructed the nurses today to go back into prone position after she is done with dialysis. Chest x-ray continues to show worsening interstitial infiltrates and ARDS pic ture. Labs were all reviewed. Her medications were all reviewed today. Basic metabolic profile is normal BUN is 26 creatinine 2.59. LDH is 955 and C- reactive protein is 22.1. Not much of a change in the last few days. Patient was reevaluated today on 10/08/2020, remains in the ICU, intubated and mechanically ventilated, patient is presently in prone position her ABG this morning showed significant improvement in her oxygenation, however continues to have a combined metabolic and respiratory acidosis. She is now on assist control of 350 rate of 36 FiO2 down to 60% PEEP at 14. ABG on 100% showed a pO2 of 209 pCO2 of 59 pH of 7.15. Her assist control rate was increased to 36. Kept her on the same tidal volume of 350. 2 A of bicarb were given. Patient is also on bicarb drip. Patient remains on propofol at 75 mcg/kg/m, she is on Nimbex at 4 mcg/kg/m, and norepinephrine at 0.01 mcg/kg/m. Patient is also on fentanyl at 3 mcg/kg per hour. During my evaluation, the patient was in prone position, however should be placed back in supine position once dialysis is ready and the patient will be dialyzed again today. Chest x-ray from yesterday continues to show evidence of interstitial edema and ARDS. No chest x-ray has been done yet today because the patient was in prone position. Patient remains on Decadron, remains on Lovenox, she is off antibiotics for now. CBC showed WBC 9.9 hemoglobin is 9.1. Hematocrit is 28.7. Electrodes are normal. BUN is 29 and creatinine 2.44. Bicarb is 20. LDH is up a bit 1026, C-reactive protein is about the same at 19.7. Progress note dated 10/09/2020. This is a 35-year-old black female with history of acute COVID 19 infection, with acute hypoxemic respiratory failure. She was admitted way back on September 10. Because of failure to wean from mechanical ventilation, she underwent tracheostomy and PEG tube placement on September 18. Currently remains on the ventilator. She is on the VC + (PRVC) modality, with a targeted tidal volume 350 and inspiratory time of 0.9 seconds. Her rate is set at 36. FiO2 70%, and PEEP of 14. On those settings, her arterial blood gases show a PaO2 of 72, pCO2 47, and pH 7.23. Currently, the patient's getting daily hemodialysis. Her drips including propofol at 75 mcg/kg/m, Nimbex at 3.5 mcg/kg/m, with [id number] monitoring, fentanyl at 3 g kilogram per hour, norepinephrine at 7 mcg/m, saline at 20 mL an hour, and vital 1.2 at 10 mL an hour, which is goal. White count 5.4, hemoglobin 9.2, hematocrit 28.8, and platelet count 217,000. Sodium 137, potassium 4.2, chlorides 108, CO2 19, anion gap 10, BUN 22, and creatinine 1.64. The patient's chest x-ray is consistent with bilateral infilt rates, and is essentially unchanged, and consistent with a diagnosis of coronavirus pneumonia. Progress note dated 10/10/2020. 35-year-old black female, with a history of COVID 19 infection and acute hypoxemic respiratory failure. She was admitted way back on September 10. Because of failure to wean from mechanical ventilation, she underwent tracheostomy and PEG tube placement on September 18. She remains on the mechanical ventilator. She is on the pressure regulated volume control modality. Her targeted tidal volume is 350 mL, and her inspiratory time 0.9 seconds. The patient's on 70% FiO2, PEEP o f 14, with a rate of 36. The patient is receiving Nimbex at 4.5 mcg/kg/m, propofol at 65 mcg/kg/m, norepinephrine at 3.5 mcg/m, fentanyl at 2.5 mcg/kg/h, and vital AF 1.2 at 10 mL an hour which is goal. The patient's blood gases from this morning show a PaO2 of 79, 5, and a pH is 7.29. Today's chest x-ray is currently still pending. Overnight, there've been no major changes in her condition. White count 7.8, hemoglobin 7.5, hematocrit 23.1, and platelet count 267,000. Sodium 139, potassium 3.9, chlorides 109, CO2 20, anion gap 10, BUN 20, with creatinine 1.29. Progress note dated 10/11/2020. 35-year-old black female with a history of COVID 19 infection and acute hypoxemic respiratory failure. She was admitted back on September 10. Because of failure to wean from mechanical ventilation, she underwent tracheostomy and PEG tube placement on September 18. She remains on the mechanical ventilator to this day. Currently, she is on pressure regulated [place] control, with a targeted tidal volume of 350, inspiratory time of 0.9 seconds, FiO2 70%, PEEP of 14, and a rate of 36. Her blood gases show a PaO2 of 74, pCO2 46, pH 7.28. In an attempt to reduce the FiO2, I was going to go up on the PEEP, but I was reminded that the patient has a issue with high airway pressures, potentially causing airway and alveolar trauma. For that reason, I will switch her to volume assist control modality, with a tidal volume at 325, rate 32, FiO2 70%, and PEEP of 14. This will cause permissive hypercapnic ventilation. I'm okay with this, and I will except a pH of 7.15 or higher. He blood gas will be done in one hour. The patient has daily hemodialysis. We will attempt to prone the patient for 16 hours today. She apparently does well with that modality. Currently, she is on saline at KVO, propofol at 65 mcg/kg/m, fentanyl at 2.5 mcg/kg/h, Nimbex at 3.5 mcg/kg/m, and norepinephrine has been weaned off. She is getting vital AF, at 10 mL an hour, which is goal. Over the last 3 days, since I've been seeing her, there is not been much in the way of progress. White count 9.3, hemoglobin 8.1, hematocrit 26.4, platelet count 276,000. Sodium 136, potassium 4.3, chlorides 103, CO2 20, anion gap 13, BUN and creatinine were 20 and 1.14. Chest x-ray today shows improvement of volume status. Progress note dated 10/12/2020. 35-year-old black female again seen in the intensive care unit, room 265. She has a history of coronavirus pneumonia with acute hypoxemic respiratory failure. She was admitted way back on September 10. She ended up with a tracheostomy and PEG tube placement on September 18 for failure to wean from mechanical ventilation. She remains on the ventilator. She is on volume assist control mode rate of 32, tidal volume 325, FiO2 70%, PEEP of 14. Arterial blood gases show pO2 of 54, pCO2 60, pH is 7.17. She's getting hemodialysis today. Peak airway pressures about 21 cm water. He is getting propofol at 75 mcg/kg/m, fentanyl at 3.5 mcg/kg/h, Nimbex at 7 mcg/kg/m, and saline at KVO. Her tube feeds include vital AF at 10 mL an hour, which is goal. She currently tested negative for coronavirus. She is getting hemodialysis today. Chest x-rays essentially unchanged. White count 10.4, he will May 0.1, hematocrit 25.9, platelet count 273,000. Sodium 133, potassium 4.7, chlorides 100, CO2 19, anion gap 14, BUN and creatinine were 21 and 0.91. This electrolyte profile consistent with an anion gap metabolic acidosis. Saturations currently are 95%. Medications are reviewed. Progress note dated 10/13/2020. 35-year-old black female, seen again in the ICU, room 265. She has a history of coronavirus pneumonia with acute hypoxemic respiratory failure. She was admitted to this hospital on the . She ended up with a tracheostomy and PEG tube being placed on September 18 for failure to wean from mechanical ventilation. She remains on mechanical ventilator. Currently, she is on the volume assist control mode, rate 32, tidal volume 325, FiO2 70%, PEEP of 14. Arterial blood gases show pO2 70, pCO2 of 56, and a pH is 7.26. The patient is currently also on Nimbex at 2.5 mcg/kg/m with train of 4 monitoring, propofol at 50 mcg/kg/m, and fentanyl at 2 mcg/kg/h. The patient's also getting vital AF and 10 mL an hour, which is goal. The patient's airway pressures today are a bit better. Her peak airway pressures are in the low 40s. While she was being prone yesterday, there was a significant cuff leak. Hence, she had be placed in the supine position. White count 14.2, hemoglobin 8.3, hematocrit 26.4, and platelet count 285,000. Sodium 134, potassium 4, chlorides 99, CO2 23, anion gap 12, BUN 21, and creatinine 0.70. Microbiology is all negative. Chest x-ray continues to show diffuse bilateral infiltrates. Progress note dated 10/14/2020. 35-year-old black female seen again in room 265. She has a history of coronavirus pneumonia with acute hypoxemic respiratory failure. She was admitted to the hospital on September 10. She ended up with a tracheostomy and PEG tube being placed on September 18 for failure to wean from mechanical ventilation. Roslyn oconnor remains on the ventilator. Currently, she is on volume assist control mode, rate 32, tidal volume 325, FiO2 70%, and PEEP of 14. She's receiving propofol 60 mcg/kg/m, fentanyl at 3 mcg/kg/h, and Nimbex at 7 mcg/kg/m. The patient is also receiving saline at 20 mL an hour. She's been on and off of norepinephrine area and currently is on hold. She is also receiving vital AF at 10 mL an hour which is goal. Laboratory data from today is not yet available. From October 13, white count 14.2, hemoglobin 8.3, and platelet count was normal. Also, blood gases from yesterday show pO2 70, pCO2 of 56, and pH is 7.26. Electrolytes are essentially within normal range. Chest x-ray from yesterday continues to show bilateral infiltrates, without much change. Progress note dated 10/15/2020. 35-year-old black female, again seen in room 265. She has a history of coronavirus pneumonia, with acute hypoxemic respiratory failure. She was admitted to the hospital back on September 10. She ended up with a tracheostomy and PEG tube being placed on September 18 for failure to wean from mechanical ventilation. She's been in the hospital now for 35 days. Currently remains on the ventilator. She's on the volume assist control mode, rate 32, tidal volume 325, FiO2 70%, EPAP of 18. Blood gases show pO2 of 80, pCO2 61, pH is 7.15. The patient will have hemodialysis today. Yesterday, hemodialysis was done, and 4 L was removed. The patient is currently on propofol at 70 mcg/kg/m, fentanyl at 3 mcg/kg/h, Nimbex at 8 mcg/kg/m, no epinephrine at 6 mg/m, 0.9 at 10 mL an hour, and vital AF at 10 mL an hour which is goal. Unfortunately, she is twitching 4 out of 4 on the Nimbex at the current dose, and we will switch her to rocuronium at 5 mcg/kg/m. We'll titrate accordingly, and monitor the patient with [id number] testing. Current laboratory data includes a white count of 33.9, hemoglobin 8.5, hematocrit 26.4, and platelet count 367,000. Sodium 135, potassium 4.5, chlorides 100, CO2 21, anion gap 14, BUN 19, creatinine 0.96. Microbiologic data is all negative. Progress note dated 10/30/2020. 35-year-old black female, who is now been in the hospital for 50 days. The patient was admitted back on September 10. The patient underwent tracheostomy and PEG tube placement on September 18, for chronic respiratory failure, failure to wean from mechanical ventilation, secondary to severe coronavirus pneumonia and hypoxemia. She remains on mechanical ventilator. She is on the VC plus mode, with a targ eted tidal volume of 375, and inspiratory time of 0.9 seconds. The rate of 32, FiO2 45%, and PEEP of 6. Blood gases were not done today. She remains on saline at 10 mL an hour, and vital AF at 46 mL an hour, which is goal. We will attempt to place her on some pressure support and CPAP. We'll use settings of 15/5. She did very well with that last week. Currently, she remains on cefepime. A white count 8.9, hemoglobin 7.2, hematocrit 21.9, and a normal platelet count. Sodium 133, potassium 5, chlorides 97, CO2 23, anion gap is 13, BUN 69, and creatinine 2.67. One of the discharge issues, as the patient is currently still on daily hemodialysis. No chest x-ray today. Progress note dated 10/31/2020. 35-year-old black female, who is now been in the hospital for 51 days. The patient was admitted back on September 10. She underwent tracheostomy and PEG tube placement on September 18 for chronic respiratory failure with failure to wean from the chemical ventilation, secondary to severe coronavirus pneumonia and hypoxemia. Yesterday, she was on the VC plus mode. Currently, suggested a, she 's been on pressure support of 15, and CPAP of 5. When on VC plus, she has a targeted tidal volume of 375, respiratory rate of 32, inspiratory time of 0.9 seconds, FiO2 45%, and PEEP of 5. Blood gases, done on pressure support, show pO2 of 76, pCO2 47, and pH 7.38. The patient's on saline at 10 mL an hour, and vital AF at 46, which is goal. White count 9.3, hemoglobin 6.9, hematocrit 21.6, platelet count 248,000. Sodium potassium chloride CO2 all normal. Anion gap 7, BUN and creatinine were 38 and 2.04. Today's chest x-ray is stable. Progress note dated 11/01/2020. 35-year-old white female, who is been in the hospital for 52 days. She was admitted back on 09/10/2020. She was admitted with a diagnosis of acute hypoxemic respiratory failure secondary to coronavirus pneumonia. She underwent tracheostomy and PEG tube placement on September 18, for failure to wean from mechanical ventilation. Currently, the patient's on pressure support of 15 cm water, and CPAP of 5 cm water. When she is not on these settings, she is on the VC plus modality. No blood gases today. She's getting saline at 10 mL an hour. Getting vital AF at 46 mL now which is goal. She is receiving hemodialysis today. We are hoping, the patient can be transferred to a long-term acute care facility. That still not decided as yet. White count 8.5, hemoglobin 7.5, hematocrit 23.6, and platelet count 278,000. Sodium 136, potassium 4.8, chlorides 100, CO2 27, anion gap 9, BUN 55, creatinine 2.81. Chest x-ray from yesterday shows a stable pattern of diffuse bilateral infiltrates. Progress note dated 11/02/2020 35-year-old black female with a history of prolonged hospitalization a 53 days for hypoxemic respiratory failure secondary to coronavirus pneumonia. The patient was admitted back on 09/10/2020. For respiratory failure, and failure to wean from mechanical ventilation, she underwent tracheostomy and PEG tube placement on September 18. Currently, the patient's on the VC plus mode. Targeted tidal volume is 375 mL, inspiratory time is 0.9 seconds, rate 32, FiO2 40%, PEEP of 5. No blood gases were done. The patient's on saline at KVO. She received hemodialysis yesterday and 4 L was removed. She is on vital AF at 46 mL an hour, which is goal. The patient is ready for discharge to long-term acute care my opinion. White count 9.3 hemoglobin 7.2, hematocrit 22.2, and platelet count 255,000. Sodium 135, potassium 4.5, chlorides 98, CO2 28, anion gap 9, BUN 42, and creatinine 2.36. Chest x-ray from 2 days ago is reviewed. There has been no significant changes. Progress note dated 11/03/2020. 35 -year-old black female with a history of prolonged hospitalization of 54 days, with respiratory failure and mechanical ventilation for coronavirus pneumonia. The patient was admitted back on 09/10/2020. The patient developed respiratory failure and failure to wean from mechanical ventilation. She underwent tracheostomy and PEG tube placement on September 18. Currently, the patient has been on pressure support of 15 and CPAP of 5 and FiO2 40%, and yesterday. We'll attempt some trach collar today. The patient's getting saline at 10 mL an hour. The patient will have hemodialysis today. We are hoping to get the patient off to a long-term acute care facility. White count 7.5, hemoglobin 6.9, hematocrit 22.6, and platelet count 255,000. Sodium 133, potassium 5.1, chlorides 97, CO2 27, anion gap 9, BUN 59, and creatinine 3.0. Progress note dated 11/04/2020. 35-year-old black female with a history of prolonged hospitalization a 54 days, with respiratory failure and mechanical ventilation for coronavirus pneumonia. The patient was admitted back on 09/10/2020. The patient developed respiratory failure and failure to wean from mechanical ventilation. She underwent tra cheostomy and PEG tube placement on September 18. Currently, the patient has been on pressure support of 15 and CPAP of 5, with an FiO2 of 40%. Yesterday, we placed the patient on a trach collar chest trach shield, at 40%. The patient remains on that modality. She seems be doing relatively well. The patient is not receiving any IV fluids. The patient is getting nutrition with Nepro at 34 mL an hour. She is getting hemodialysis, Friday, Friday, and Friday. She looks much more stable. White count 8.5, hemoglobin 7.7, hematocrit 24.3, and platelet count 250,000. Sodium 132, potassium 4.4, chlorides 96, CO2 27, anion gap 9, BUN 41, and creatinine 2.34. Chest x-ray shows bilateral infiltrates, relatively stable at this time. Progress note dated 11/05/2020. 35-year-old black female with history of prolonged hospitalization a 55 days. She was admitted with a diagnosis of coronavirus pneumonia, with hypoxemic respiratory failure. She was admitted on September 10. The patient was unable to be weaned from mechanical ventilation, and had a tracheostomy tube and PEG tube placed on September 08. Today, we changed tracheostomy tube to to a #6 cuffed Shiley tube. Currently, for the last 2 days, the patient has been on 35% trach shield. She's not receiving any IV fluids. She is getting Nepro at 34 mL now which is goal. Clinically she looks very well. No laboratory data today. No hemodial ysis today. Currently, she is on a Friday, Friday, Friday, hemodialysis schedule. We are hoping to get her to long-term acute care on Friday. Objective - Vital Signs Vital signs: Vital Signs Temp 98.3 F 11/05/20 08:00 Pulse 99 11/05/20 09:00 Resp 124 H 11/05/20 09:00 BP 162/102 11/05/20 09:00 Pulse Ox 95 11/05/20 09:00 Intake & Output 11/04/20 11/05/20 11/05/20 18:59 06:59 18:59 Intake Total 938 568 222 Output Total 0 0 0 Balance 938 568 222 Weight 86.6 kg Intake: IV 220 50 0.9 Normal Saline @ KVO 20 Cefepime 1 gm In Sodium 200 50 Chloride 0.9% 50 ml @ 12. 5 mls/hr IVPB Q24H [facility] Rx #:[id number] Tube Feeding 408 408 102 Other 310 110 120 Output: Urine 0 0 0 Other: Voiding Method External Catheter # Voids 1 ABP, PAP, CO, CI - Last Documented Arterial Blood Pressure 136/76 - Exam No acute distress, currently not sedated or paralyzed, with a midline tracheost jose manuel tube in place. The patient is currently on trach shield. HEENT examination is grossly unremarkable. Neck supple. Full range of motion. No adenopathy thyromegaly or neck vein distention. Midline tracheostomy tube noted. Cardiovascular examination reveals regular rhythm rate. S1-S2 normal. No S3 or S4. No discernible murmur noted. Heart sounds are distant. Heart rate 99 beats per minute. Lungs reveal diffuse bilateral rhonchi and few scattered crackles. There are no wheezes. Breath sounds equal bilaterally. Saturations are 98% on trach shield. Abdomen soft bowel sounds are heard. No masses or tenderness. PEG tube noted. Extremities are intact. No cyanosis clubbing or edema. Skin is without rash or lesion. Neurologic examination is stable. The patient has significant extremity weakness. Neurologic examination is unchanged. - Labs CBC & Chem 7: 11/04/20 04:37 11/04/20 04:37 Labs: Abnormal Lab Results - Last 24 Hours (Table) 11/04/20 11/04/20 11/05/20 Range/Units 12:02 17:55 00:17 POC Glucose (mg/dL) 145 H 145 H 130 H (75-99) mg/dL 11/05/20 Range/Units 06:17 POC Glucose (mg/dL) 121 H (75-99) mg/dL Assessment and Plan Assessment: Acute hypoxemic respiratory failure, secondary to COVID 19 pneumonia, with ARDS, with admission to hospital on September 10, transferred to ICU on the , intubation on September 11, and tracheostomy and PEG tube placement on September 18. Acute respiratory distress syndrome (ARDS). Acute kidney injury, currently on hemodialysis. Failure to wean from mechanical ventilator, likely secondary to critical illness polyneuropathy/myopathy. Acute diabetic ketoacidosis, resolved. Sepsis, secondary to COVID 19 pneumonia. Acinetobacter tracheobronchitis as bronchopneumonia, currently on cefepime. Nonsustained ventricular tachycardia. Anion gap metabolic acidosis. Poorly controlled type 2 diabetes. Elevated inflammatory markers secondary to coronavirus infection. History of essential hypertension. Generalized anxiety disorder. Morbid obesity. Plan: Plan dated 10/09/2020. The patient remains on the pressure regulated volume control mode of alicia tilation. The patient is being nourished at goal. The patient remains on propofol, Nimbex, and fentanyl. In addition, the patient remains on norepinephrine. Labs, x-rays, and medications are all reviewed. Prognosis is very poor. We will continue to follow. Additional recommendations and sugge stions are forthcoming. The patient remains on daily hemodialysis. Plan dated 10/10/2020. The patient remains about the same. She remains on the ventilator. The patient is status post tracheostomy and PEG tube placement. She remains sedated with propofol and fentanyl. She is also chemically paralyzed with Nimbex. She remains on norepinephrine at 8.5 mcg/m for low blood pressure. Cultures are all negative. She remains on periodic hemodialysis. Additional recommendations and suggestions are forthcoming. Diagnosis is guarded. We will continue to follow make recommendations where appropriate. Plan dated 10/11/2020. The patient remains on mechanical ventilator. We will attempt to prone the patient today for 16 hours, to improve oxygenation. In addition, the patient is switched from pressure regulated volume control modality to volume assist control. Settings include tidal volume at 325, rate 32, FiO2 70%, PEEP of 14. A repeat blood gas to be done in an hour. Additional recommendations and suggestions are forthcoming. The patient is currently undergoing daily hemodialysis. Prognosis remains very poor. We will continue to follow make recommendations where appropriate. Plan dated 10/12/2020. The patient remains on mechanical ventilator. We'll see for can wean down the Nimbex. This seems like a high-dose to me. He should be doing [id number] monitoring. The patient is receiving hemodialysis today. Saturations are 95 and 96%. Peak airway pressures 41 cm water. Additional recommendations and suggestions are forthcoming. Prognosis is very guarded. She is getting nutrition at goal. The patient does better in terms of her saturations, when she is in the prone position. Today we will place her in the prone position again. Plan dated 10/13/2020. The patient remains on mechanical ventilator. She did not do well yesterday with prone because of the tracheostomy cuff leak. Her airway pressures are a bit lower today. She remains on Nimbex, propofol, and fentanyl. She is getting nutrition at goal. Today's blood gases are reasonable. She's currently getting daily hemodialysis. We will continue to follow. Additional recommendations and suggestions are forthcoming. We'll attempt to get the paralysis off. No additional recommendations are made at this time. Plan dated 10/14/2020. The patient remains on mechanical ventilator. Essentially, she's been stable on propofol, fentanyl, and Nimbex. She remains on vital AF at goal. She's been on and off norepinephrine through the night. Labs and x-rays from today are still pending. Vent settings has not changed. We will continue to follow make recommendations where appropriate. Overall prognosis remains very guarded. Plan dated 10/15/2020. The patient remains on the ventilator. She remains on propofol, fentanyl, and Nimbex. She's also on norepinephrine at 6 mg/m. We don't seem to be adequately paralyzing this patient. We will switch to a different paralytic. She did have hemodialysis yesterday. 4 L was removed. She'll have hemodialysis today. Once we have her properly paralyzed, the patient will have a repeat blood gas. I may end up increasing her rate up to 36. Overall prognosis remains very poor. Plan dated 10/30/2020. The patient will begin be placed on pressure support of 15 and CPAP of 5. She apparently did well with the settings late last week. The patient is being nourished at goal. A gases were not done. She remains on cefepime for the Ac inetobacter. Overall prognosis remains very poor. The patient has profound weakness, and failure to wean from mechanical ventilation, secondary to critical illness polyneuropathy/myopathy. We are attempting to place the patient. Daily hemodialysis is hampering our efforts. Plan dated 10/31/2020. The patient has been on pressure support and CPAP of 15 and 5, since 2:00 yesterday. The patient appears to be doing well, and, it is stable hemodynamically. We are hoping for discharge tomorrow. No additional recommendations are made. She remains on cefepime for Acinetobacter. She has profound weakness, likely secondary to critical illness polyneuropathy/myopathy. Additional recommendations and suggestions are forthcoming. We will continue to follow make recommendations were appropriate. The patient has now been in the hospital for 51 days. Plan dated 11/01/2020. The chest x-ray from yesterday is reviewed. The patient remains on saline at 10 mL an hour, and vital AF at 46 mL an hour, which is goal. No blood gases today. Labs are reviewed. Currently, the patient's on pressure support of 15 cm water, and CPAP of 5 cm water, beginning at 8:00 this morning. Overnight, she was placed back on the ventilator, on the VC plus modality. She is receiving hemodialysis today. We are hoping for a possible discharge to long-term acute care. That has not been decided yet. The patient has been in the hospital for 52 days. We will continue to follow make recommendations where appropriate. Plan dated 11/02/2020. Currently, the patient remains on the VC plus mode of ventilation. Yesterday, she was placed on pressure support and CPAP and did well. She is awake and alert. She my opinion she's ready for discharge to long-term acute care. She's being nourished at goal. She's getting saline at KVO. She had hemodialysis yesterday in 4 L was removed. Chest x-ray stable and unchanged. Blood gases not been done recently. Laboratory data is reviewed. Prognosis is guarded. Additional recommendations and suggestions are forthcoming. The patient has been here in the hospital for now 53 days. Plan dated 11/03/2020. Currently, the patient has been on pressure support of 15 and CPAP of 5 and FiO2 40%, since yesterday. We will attempt some trach collar her trach shield today. The patient is getting saline at 10 mL an hour. Today he is a hemodialysis today. Labs are reviewed. No chest x-ray today. Oxygen exchange is good. Saturations are 100%. Awake and alert. We will continue to follow make recommendations where appropriate. The patient has been in the hospital now for 54 days. Plan dated 11/04/2020. The patient has now been here for 55 days. On a positive note, we've been able to transition her from support and CPAP, to a trach shield at 40%. She is getting hemodialysis, Friday, Friday, and Friday. From my perspective, the patient is stable to transfer to long-term acute care. Her most recent chest x- ray is stable. Labs, when done, have also been stable. She certainly is doing much better today than she has been over the last couple of weeks. Prognosis is still guarded. Additional recommendations and suggestions are forthcoming. We will continue to follow and make recommendations, where appropriate. Plan dated 11/05/2020. Currently, the patient's been here now for 56 days. We did change her tracheostomy tube today to a #6 Shiley cuffed tube. Clinically she looks well. She's been on 35% trach collar now for more than a couple days. She's not receiving any IV fluids. No lab work today. She's getting Nepro at 34 mL now which is goal. She's currently on the Friday, Friday, Friday hemodialysis schedule. Hopeful transfer to long-term acute care next day or 2. Additional recommendations and suggestions are forthcoming. We will continue to follow make recommendations where appropriate. Time with Patient: Greater than 30
[2020-11-05 11:52] LABS: Glucose,Whole Blood 174 mg/dL (75-99)
[2020-11-05] MEDS ORDERED: MINERAL OIL-WHITE PETROLATUM 120 GM JAR TOPICAL PRN (13:46)
[2020-11-05] MEDS: CEFEPIME 1 GM in SODIUM CHLORIDE 0.9% 50 ML IVPB SCH (13:57)
--- NOTE | 2020-11-05 14:19 | P.PN ---
Subjective Progress Note Date: 11/05/20 HISTORY OF PRESENT ILLNESS 35-year-old female patient of Dr. Arroyo with past medical history of type 2 diabetes comes in with acute shortness of breath associated with high light sugars. Patient on admission was found to have a fever of 101.5 pulse rate 125 respiratory rate 20. Blood pressure 132/106. On chest x-ray obtained in the ER suggestive of bilateral infiltrates concerning for call with pneumonia. COVID PCR was positive. On admissions patient had an ABG with a pH of 7.14 pCO2 of 20, pO2 of 59, bicarb of 7. Patient's blood sugar on admission was 424 on assessment today patient's blood work patient had a sodium 135 potassium 5.4 chloride 123 bicarb less than 5 and creatinine 0.73. D-dimer was elevated on admission patient 9 28 patient given 1 L of IV fluids followed by normal saline running at 200 mL/h. Patient was positive for acetone on admission. She will anion gap closed and was switched to D5NS. Insulin drip was continued during the night and was switched to patient's home medication this morning. One dose of remdesiver was ordered. Apparently around noon, A- team was called on the patient secondary to hypoxia patient's oxygen saturation dropped to the 70s and 80s on 100% nonrebreather. Patient was switched to BiPAP on 18/12 and is doing better o FiO2 of 80%. ABG was obtained and ph was 7. 14 pCO2 of 28 bicarb of 7 pO2 of 17. Patient noted to have uncompensated metabolic acidosis with compensated respiratory alkalosis. Stat dose of 1 amp bicarb was given and followed by sodium bicarbonate drip. Insulin drip restarted. Patient's initiated on dexamethasone 6 mg IV twice a day. Potassium phosphate ordered as phosphorus is low. Patient's repeat blood gases suggest a pH of 7.25, CO2 32 pO2 of 72 bicarb 14. I will not normal saline at 100 mL/h as patient's anion gap has increased. Patient given 1 dose of 2 mg of morphine with improvement in respiratory rate. One dose of Ativan 0.5 mg was given. Xanax 0.25 twice a day along with Ativan 0.5 IV every 6 hours ordered for the patient. Vitals were evaluated patient pulse 129 [id number]. She was moved to the ICU. Precedex drip was initiated. Lopressor was initiated at 25 twice a day. Metoprolol tartrate 5 mg IV every 6 hours. Systolic blood pressure more than 160. Started chest x-ray was obtained and suggest stable bilateral consolidation suggestive of COVID-19 pneumonia. 09/12 patient is seen in the ICU is currently mechanically ventilated and sedated on vent settings of respiratory rate 36, tidal volume 375 FiO2 80% PEEP of 18.. Vital signs reviewed patient had a temp of 100.4 pulse 150 respiratory rate 36 oxygen saturation 95% on 80% on fio2 .'s labs are reviewed which patient had a d-dimer 1.84 that is increased to 14.3. Arterial Blood gas suggest ph 7.35, CO2 40, po2 62, . Her BMP suggest a sodium 135 potassium 3.7 chloride 112 bicarb 21 creatinine 1.57 for calcitonin is 3.5 CRP is increased from 8.78.2 LDH is increased to 2614. Patient remains on Pneumovax, propofol drip. Lovenox increased to 50 subcu twice a day. Patient received 2 L of IV fluids. Continue IV fluids at 100 mL/h. Bicarb drip discontinued patient initiated on Zosyn 3.375 every 8 hours. Continue insulin drip at 4 units per hour. Patient is currently in prone positioning 09/13: Patient evaluated in the ICU remains on Ventilation continues to be sedated, in prone position. Vent settings are respiratory rate 36, tidal vital 375, FiO2 70% PEEP of 18. ABG shows pO2 of 82, PCO2 of 39, pH is 7.19. Latest labs show WBC 11.1, hemoglobin 13.2, d-dimer still pending, but yesterday was up to 14.3. Creatinine up to 3.4, BUN 24 sodium 137, potassium 4.0. Patient's urine output has been low, nephrology on consult. Bicarb drip increased to 100 miles an hour, receiving another liter of normal saline, she did have a ultrasound that showed unremarkable bilateral kidneys. Repeat chest x-ray showed bilateral lung infiltrates that are stable. Anion gap has closed, will start Lantus 10 units at at bedtime Novolog every 6 hours. 09/14: Patient is seen in the ICU, still currently mechanically ventilated and sedated. She continues in the prone position. Her oxygen quickly drops if she is not in prone. Patient's kidney function has worsened. Laboratory values show creatinine of 4.87, BUN 33, LDH 2191, C-reactive protein 2.7. ABG shows pH 7.32, pO2 of 60, pCO2 43. Patient is making almost no urine overnight. Nephrology is following patient continues on cefepime for urinary tract infection, culture is still pending. Vascular has been consulted for placement of temporary hemodialysis catheter for plans for dialysis. 09/15: Patient evaluated in the ICU, continues to be mechanically ventilated and sedated on assist control ventilation rate of 36, tidal volume 375, FiO2 100% and PEEP of 18. ABG today shows pO2 58, pCO2 of 45, and pH 7.35. She continues on tube feedings. Yesterday patient underwent ultrasound-guided right internal jugular non-tunneled hemodialysis catheter placement. Patient underwent hemodialysis treatment last night and plans have another hemodialysis treatment today. She continues to make almost no urine. She continues on cefepime for antibiotic coverage, and continues on Decadron and Lovenox. 09/16: Patient seen on follow-up remains in the ICU mechanically ventilated and sedated. She continues on assist control rate of 36, tidal volume 375, FiO2 100% and PEEP of 20. PEEP had to be increased due to patient had to be in supine position for dialysis, will go back to prone position once dialysis is complete. ABG shows pH 7.32, pCO2 49, PaO2 61. Laboratory values showed WBC 11.2, hemoglobin 11, sodium 134, creatinine 4.44, BUN 38. Urine culture shows no growth, blood cultures show no growth to date. Repeat chest x-ray shows bilateral pleural effusions, correlate for ARDS, pulmonary edema, diffuse pneumonia, findings are stable from last exam. Patient does not require any pressors, blood pressure 133/57, heart rate 78. 5/16: Patient was evaluated in the ICU today for follow-up. She continues to be intubated and on mechanical ventilation. Current vent settings are tidal volume 375, FiO2 100% and PEEP of 20. ABG shows pH 7.37, pCO2 40, pO2 102. She continues with intermittent prone positioning. Patient continues to have almost no urine output, maintained on dialysis. Patient received dialysis yesterday without complication. Laboratory values revealed WBC 10.3, hemoglobin 10.4, sodium 132, potassium 3.1, BUN 33, creatinine 4.29, LDH 1913, C-reactive protein 1.3. Urine and sputum cultures are negative, blood cultures show no growth to date. Consult placed to dietary to start TPN[ ] 09/18: She remains in the intensive care unit intubated and on mechanical ventilation with tidal volume 375, FiO2 60 and PEEP of 20. Patient is being prone to daily at approximately 16 hours per day. Pulmonary medicine has added in Dr. Zhang to do PEG tube and trach today. Patient is not on vasopressors. Repeat blood work reveals WBC 12.6, hemoglobin 9.8, platelet count 212. Sodium 133, potassium 3.2, chloride 102, CO2 21, BUN 35 and creatinine 4.12. Blood sugar 126. Patient underwent hemodialysis yesterday with removal of 2 L and is scheduled again today with goal of 2-3 L and is scheduled again tomorrow. 09/19: She is scheduled for hemodialysis today and is off fentanyl temporarily. Patient is status post trach and PEG tube yesterday. And she remains on mechanical ventilation. Pulse ox 93-95%. She has been afebrile, heart rate 64, respiratory rate 36, blood pressure 115/50. Fentanyl is off to improve blood pressure for hemodialysis which is scheduled for today. Contacted vascular surgery about permanent hemodialysis catheter. Repeat blood work reveals WBC 14.3, hemoglobin 9.6, platelet count 200. D-dimer 6.48. LDH 1686. C-reactive protein 1.1. BUN 34 creatinine 3.81. Sodium 130, potassium 3.5, chloride 101, CO2 18. Blood sugars running between 101 198. Plan is to wean off Pneumovax today. Patient remains on insulin drip. Repeat chest x-ray reveals bilateral multifocal confluent opacities consistent with COVID-19. Some improved aerati on periphery of the left lung and worsening opacities throughout the right lung. 09/20: She remains in the intensive care unit on mechanical ventilation. She has been afebrile, heart rate 65, respiratory rate 37, blood pressure 121/70, pulse ox 91-99%. Repeat blood work reveals WBC 14.5, hemoglobin 9.1, platelet count 216. D-dimer 6.13. Sodium 133, potassium 3.1, chloride 102, CO2 18, BUN 35 and creatinine 4.27. Blood sugars running between 128 and 143. LDH 1717. C- reactive protein 1.7. Patient remains on insulin drip which will be transitioned to NovoLog scale every 6 hours. Patient is scheduled for permanent hemodialysis catheter placement today with vascular surgery. Repeat chest x-ray reveals stable diffuse bilateral interstitial and airspace disease. Possible small right effusion. His work is following for transfer to intermediate care facility. Do not anticipate discharge until next week. 09/21: Patient is undergoing hemodialysis. She remains on mechanical ventilation with tidal volume 375, FiO2 down to 45 and PEEP was decreased to 15. Patient is continued on propofol, fentanyl drips. She is on tube feedings at goal. Patient was taken off insulin drip yesterday and on scale only but blood sugars are running in the 200s, Levemir scheduled at bedtime will be added. Other blood work reveals WBC 13.3, hemoglobin 8.7, platelet count 192. Sodium 137, potassium 3.6, chloride 107, CO2 18, BUN 34 and creatinine 4.21. Repeat chest x-ray is stable. 09/22: She remains in the intensive care on mechanical ventilation with tidal volume 375, FiO2 of 50 and PEEP of 10. Pulse ox is running 96%. She is afebrile, heart rate in the 50s, respiratory rate 36, blood pressure 100/64. Repeat blood work reveals WBC 16.5, hemoglobin 8.9, platelet count 213. Sodium 134, potassium 3.7, chloride 103, CO2 21, BUN 34 and creatinine 3.89. Blood sugars running in the 200s to 324. Levemir increased to 16 units at bedtime and continue NovoLog scale every 6 hours. Patient is on tube feedings at goal. She has a Haley catheter in with a scant amount of dark/brown urine. Fecal management system is in place. Repeat chest x-ray reveals diffuse bilateral airspace infiltrates persist unchanged. Patient is scheduled for hemodialysis tomorrow morning on Friday. 09/23: Patient remains on mechanical ventilation with tidal volume 3.75, FiO2 50 and PEEP of 10. library monitor sinus rhythm. She has no urine output. Fecal management system is in place. She is undergoing dialysis at this time with plan for removal of 2-1/2 L. She has been afebrile, heart rate in the 50s, respiratory rate 36, blood pressure 108/76 and pulse ox 89%. WBC 13.6, hemoglobin 9.1, platelet count 194. Sodium 136, potassium 3.0 and was replaced, chloride 106, CO2 21, BUN 49 creatinine 5.31. Blood sugars are running between 182 and this morning 194. Patient was still in the 200s and 300s. Levemir last evening was increased to 16 units. Patient remains on propofol and fentanyl dri ps. Lovenox was increased to 60 mg twice daily. 09/24: PEEP was increased today to 20, tidal volume is at 375 and FiO2 of 50%. Patient has been afebrile. She has been started on levo fed. Repeat chest x- ray reveals bilateral multifocal confluent opacities consistent with Covid 19 or ARDS redemonstrated. Nephrology will plan dialysis for tomorrow for 3 L. Patient remains on propofol fentanyl and Nimbex. WBC 12.5, hemoglobin 9.8, platelet count 161. D-dimer 13.3. Sodium 132, potassium 3.4, chloride 102, CO2 20, BUN 48 and creatinine 4.67. Blood sugars extremely elevated to 96-409. LDH 2217. 09/25: Patient remains in the intensive care unit on mechanical ventilation with tidal volume 375, FiO2 50 and PEEP of 20. Patient is afebrile, heart rate 61, respiratory rate 36, blood pressure 102/56, pulse ox 97%. Repeat blood work reveals WBC 9.3, hemoglobin 8.5 and platelet count 171. Sodium 130, potassium 3.7, chloride 100, CO2 20, BUN 61 creatinine 5.65. Blood sugars have been walt vated up to 455. Levemir increased to 20 units twice daily, NovoLog 5 units every 6 hours and continue NovoLog scale. Patient is scheduled for hemodialysis today. Repeat chest x-ray reveals bilateral multifocal and confluent opacities. Decadron and Lovenox dosing change by pulmonary. Patient is off norepinephrine. 09/26: Patient remains in the intensive care unit on mechanical ventilation with tidal volume 375, FiO2 50 and PEEP of 15. She has been afebrile, heart rate 91, blood pressure 114/68, pulse ox 99%. library monitor sinus rhythm. 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 Sodium 134, potassium 3.6, chloride 102, CO2 22, BUN 41 creatinine 4.21. Patient has improved blood sugars this morning running 150s and 160s. Diabetic medications were adjusted yesterday. Patient is awake and alert and interacting. Yesterday, patient had PICC line inserted by interventional radiology. Repeat chest x-ray reveals diffuse airspace infiltrates in both lung ann appear to progress slightly in the interval. 09/27: Patient remains in intensive care unit on mechanical ventilation with improvement of settings with tidal volume 375, FiO2 decreased to 40 and PEEP decreased to 10. Patient is on hemodialysis every other day and plan to remove 3 L today. Patient is more awake and alert. She is slow to respond but is able to follow simple commands. Blood sugars are running between 84 and 123. Repeat blood work reveals WBC 7.1, hemoglobin 8.1, platelets 152. Sodium 135, potassium 3.6, chloride 103, CO2 21, BUN 53 and creatinine 5.88. Repeat chest x -ray revealed cardiomegaly and pulmonary edema. Patient is on tube feedings:. Patient is not require vasopressors and is off sedation. Fecal management system remains in place for brown liquid stool. C. difficile was negative. 09/28: Patient remains on mechanical ventilation with tidal volume 375, FiO2 increased to 80 and PEEP increased to 18. Patient had a rough night was very anxious, no pain. Xanax 0.25 mg 3 times daily was added. There is concern for pulmonary embolism for which patient was started on heparin drip, she is unable to undergo CAT scan. Venous Doppler bilateral lower extremities was nondiagnostic due to extensive edema in obese patient but minimal imaging of the popliteal veins does show flow. Repeat echocardiogram has been ordered. Cefepime has also been ordered at 1 g IV piggyback every 24 hours as well as vancomycin, pharmacy dosing. Patient is back on fentanyl drip, propofol drip and norepinephrine. Blood sugars are elevated and insulin Levemir will be increased to 25 mg twice daily. Ferrlecit infusion has been ordered by nephrology for 4 days. Patient is undergoing hemodialysis today.temperature max 100.2, heart rate 134, respiratory rate 34, blood pressure 120/65, pulse ox 94%. library monitor is sinus tachycardia. Repeat blood work reveals WBC 16.9, hemoglobin 9.7, platelet count 216. D-dimer 8.81. Sodium 134, potassium 3.8, chloride 99, CO2 25, BUN 43 and creatinine 5.36. Blood sugars in the 200s. AST 40. 09/29 Patient had declined more last 48 hours require more sedation, patient is doing hemodialysis, respiratory failure is quite bit worse this time. Patient was inquired the pain is well back on fentanyl drip. Her vent set up with PEEP is limited but higher. No new finding on culture and her chest x-ray continues shows diffuse infiltrate persistent although there is a moderate interval improvement. 09/30 patient's was seen and evaluated. PEEP was reduced to 11 as patient is maintaining good saturation at the current vent settings. 10/01 patient was seen at bedside. She is currently on assist control rate of 28 white tidal volume 350 FiO2 50% and PEEP of 10 which has been reduced by pulmonary as patient name cleaning her oxygen saturation. Arm blood gas was obtained with a pH of 7.35 pCO2 37 pO2 of 63. She remains hemodynamically stable with no need for pressors. Labs were reviewed patient's BUN is 29 cre atinine 3.93 glucose 122 albumin 2.2 sodium 131 chloride 19 hemoglobin is downtrending with a Hb of 7.3 no leukocytosis 7.1. Patient's urine output is minimal at this time. Her rate has increased to 129 and is currently on positive fluid balance even with dialysis. Last dialysis was done yesterday. Continue enteral feeding currently at goal. Antibiotic has been discontinued and continues to remain on DEXA methicillin 4 mg IV daily. 10/02 patient continues to be on trach support with mechanical ventilation. Patient was evaluated by executive vice president business development and was switched to VC control as patient was noted to be double stacking on and off throughout the night. Respiratory rate continue to 28 tidal volume increased to 400 with a PEEP for Dr. Downey. Patient is maintaining oxygen saturation 91% on the current setting. According to the nurse bedside patient saturation drops significantly or she is moved or her sedation is dropped. Patient is currently on propofol drip, fentanyl drip. She did underwent dialysis today and was able to maintain her low pressure without the need of pressors. Labs reviewed today suggest a WBC of 6.7 hemoglobin of 7.0 and d-dimer 3.9 bicarb 17 BUN 38 creatinine 4.8. LDH is 964. Sodium 1:30 likely secondary to volume overload. Urine sodium and urine osmolality ordered. Patient's glucose this morning is 146. Continue to remain on enteral feeding. Urine output is reduced. Fall catheter will be placed today. Continue to remain on dialysis. 10/03: Patient remains on mechanical ventilation and is back on propofol and fentanyl drips. Patient is currently on VC control with tidal volume 400, FiO2 55 and PEEP of 12. Patient still is not making any urine and is dialysis dependent with next treatment planned for tomorrow with removal of 3-3-1/2 L. PEG tube feedings are at goal. Fecal management system remains in place. At the time of evaluation, patient is off levophed. Repeat chest x-ray reveals stable diffuse bilateral airspace disease correlate for ARDS, pulmonary edema or diffuse pneumonia. Temperature max last evening was 101. Temperature currently 99, heart rate 106, respiratory rate 32, blood pressure 101/50, pulse ox 86%. Repeat blood work reveals WBC 6, hemoglobin 7.4, platelet count 160. D-dimer 4.05. Sodium 133, potassium 3.5, chloride 100, CO2 23, BUN 31 creatinine 3.8. Blood sugars are running between 100 and 170. Ferritin 1514. Liver function test normal. LDH 1016, C-reactive protein 13.6. Prognosis remains guarded. 10/04: Patient remains intubated on mechanical ventilation with tidal volume 400, FiO2 65, PEEP of 14. Patient continues to run fevers and repeat blood culture and urine and urine culture ordered for today. Haley catheter has been removed this patient has no significant urine output at about 20 mL per shift. BladderScan is monitored for greater than 300 and the patient is straight cathed. Hemoglobin is 6.8 and she has been ordered 41 unit of packed RBCs today. She is currently on propofol and fentanyl drips. She is scheduled for hemodialysis today. WBC 4.5, hemoglobin 6.8, platelet count 151. D-dimer 3.28. Sodium 132, potassium 4.1, chloride 100, CO2 22, BUN 37 creatinine 4.74. Blood sugars running between 97 and 110. Ferritin 1801. LDH 859. C-reactive protein 14.4. Chest x-ray reveals correlate for pneumonia, edema, ARDS. Prognosis remains guarded. 10/05: Patient remains in intensive care unit currently on mechanical ventilation with tidal volume 400, FiO2 was increased to 100 and PEEP is at 14. She continues to run fevers which have worsened with temperature max 103.1. She has been tachycardic in the 130s, blood pressure is marginal but not on vasopressors. Pulse ox currently 92%. Repeat blood work reveals WBC 5.5, hemoglobin 7.6, platelet count 190. D-dimer 2.7, ferritin 1770, LDH 932, C- reactive protein 21.4. Blood sugars are running between 100 1669. Electrolytes are normal. BUN 27 and creatinine 3.79. Pancultures were done yesterday including a straight cath for urine culture, sputum culture and blood culture. Arterial line was removed as well as midline. She is currently on propofol, fe ntanyl and started on Nimbex today. 10/06: Patient remains in the intensive care unit. Today patient in prone position and remains on mechanical ventilation with tidal volume 350, FiO2 65 and PEEP of 14. Her last documented fever was yesterday at 2 PM. Heart rate is in the 120s, respiratory rate 32, pulse ox 88-92%. CBC is unremarkable. Electrolytes are normal. BUN 30 creatinine 2.93. Blood sugars are running between 135 and 164. Cultures from October 04: Blood culture no growth, sputum culture finalized, urine culture finalized. Catheter tip culture is in process. Repeat chest x-ray shows bilateral interstitial infiltrates. Patient is on tube feedings of Nepro at goal of 30 ML's per hour. Patient underwent dialysis yesterday and is scheduled for repeat dialysis today. 10/07: Patient maintains in the intensive care unit intubated and on mechanical ventilation. She is receiving hemodialysis this morning has been every day. Plan is to remove 2-1/2 L today. Vent settings have changed today with tidal volume 350, FiO2 was increased to 100% and PEEP remains at 14. She has been continued on Nimbex, fentanyl, norepinephrine and propofol. Plan is to prone position patient following dialysis. Repeat chest x-ray reveals worsening interstitial infiltrates. BUN is 26 and creatinine 2.59. LDH 955, C-reactive protein 22.1. Prognosis remains poor. 10/08: Patient remains in intensive care unit intubated and on mechanical ventilation with tidal volume 350, FiO2 60, PEEP of 14. She is pronating today. She is scheduled for hemodialysis on a daily basis. She has been afebrile, heart rate 112, respiratory rate 36, blood pressure 161/88, pulse ox 93%. Repeat blood work reveals WBC 9.9, hemoglobin 9.1, platelet count 320. Sodium 133, potassium 5.3, chloride 100, CO2 20, BUN 29 creatinine 2.44. Blood sugar running between 102 and 139. LDH 1026, C-reactive protein 19.7. 10/09: Patient is undergoing dialysis this morning. She continues to be intubated and on mechanical ventilation with tidal volume 350, 270 and PEEP of 14. Patient is also on propofol, Nimbex, norepinephrine and fentanyl drips. Repeat chest x-ray reveals persistent bilateral multifocal and confluent opacities consistent with Covid 19. She is afebrile, heart rate 116, respiratory rate 36, blood pressure 120/65, pulse ox 91%. Repeat blood work reveals WBC 5.4, hemoglobin 9.2, platelet count 216. D-dimer 2.67, ferritin 2568, LDH 794, C- reactive protein 13.9. Blood sugars have been running 90-104. Creatinine 1.64. She is on daily dialysis treatment. 10/10: She remains in the intensive care unit. She is now out of isolation as a repeat Covid test came back negative. She remains on mechanical ventilation with tidal volume 350, FiO2 70 and PEEP of 14. Patient is also on Nimbex, propofol, norepinephrine, fentanyl drips. She is on PEG tube feedings at goal and tolerating well. Repeat blood work reveals WBC 7.8, hemoglobin 7.5, platelet count 267. Sodium 139, potassium 3.9, chloride 109, CO2 20, BUN 20 creatinine 1.29. Blood sugars are running between 76 and 102. Scheduled Nov oLog decreased to 3 units. Repeat chest x-ray reveals moderate cardiomegaly and continued pulmonary edema. Slight interval improvement. Patient is continued on daily hemodialysis. 10/11: Patient remains in intensive care unit on mechanical ventilation with tidal volume 325, FiO2 70, PEEP 14. She is currently being prone. She underwent hemodialysis this morning with removal of 4 L of fluid with plan to continue daily treatment. She is currently on Nimbex, fentanyl and propofol. No vasopressor at this time. Fecal management system remains in place. She is on tube feedings currently at hold due to prone positioning. Patient has been afebrile, heart rate 116, respiratory rate 36, blood pressure 100/58, pulse ox 93-96%. Repeat blood work reveals WBC 9.3, hemoglobin 8.1, platelet count 276. Sodium 136, potassium 4.3, chloride 103, CO2 20, BUN 20 creatinine 1.14. Blood sugars running between 133 and 202. 10/12: Patient remains in the intensive care unit. She is undergoing hemodial ysis this morning. She's been afebrile, heart rate in the 120s, respiratory rate 32, blood pressure 102/65. She is not on vasopressors. She is continued on Nimbex, fentanyl and propofol. Vent settings are currently tidal volume 325, FiO2 70, PEEP 14. Total platelet count 273. Sodium 133, potassium 4.7, chloride 100, CO2 19, BUN 21 creatinine 0.91. Blood sugars running between 121 and 143. 10/13: Patient remain in the ICU she is on hemodialysis daily, she is still on the vent with a PEEP of 14 and FiO2 of 70. Her oxygenation is marginal pulse rate still high. Patient had scratched cornea was seen in ophthalmology decided to keep doing eyedrops along with eye patch at this point. Prognosis still very bad this point. 10/14: She remains on mechanical ventilation with tidal volume 325, FiO2 70% and PEEP of 14. She did require label fed last evening for about 6 hours. She did not tolerate pronating yesterday. She is undergoing dialysis this morning with plan for removal of 4 L. Blood sugars have been low and IV fluids changed to D10 until blood sugars have recovered. Levemir and scheduled NovoLog discontinued. Patient is on tube feedings at goal there's been no change in t his. 10/15 patient remains on mechanical ventilation in the intensive care unit. FiO2 still at 70%, PEEP of 18. Blood sugars have improved since medications were adjusted. White blood cells 33.9, hemoglobin 8.5, sodium 135, BUN 19, creatinine 0.96. Patient to receive dialysis again today. Patient did run a low-grade fever throughout the night and pro calcitonin level is ordered. Chest x-ray showed continued diffuse bilateral airspace disease. Patient remains on tube feedings at goal. 10/16: Patient remains on mechanical ventilation with tidal volume 300, FiO2 70, PEEP of 15. Fecal management system is out. She is currently on low dose of norepinephrine. She is also on fentanyl drip, propofol drip, rocuronium drip. Heart rate is running in the 130s, sinus rhythm, blood pressure 121/63, pulse ox 95%. Patient is been afebrile. Repeat blood work reveals WBC 18.9, hemoglobin 7.5, platelet count 291. Sodium 135, potassium 4.2, chloride 101, CO2 19, BUN 25 and creatinine 1.36. Blood sugars are running between 143 and 199. Patient is on scale insulin only. Repeat chest x-ray reveals persistent bilateral multifocal and completed opacities consistent with Covid 19. 10/17: Patient remains on mechanical ventilation with tidal volume 300, FiO2 50, PEEP of 14. She is currently receiving hemodialysis. The patient is having yellow-colored drainage from the trach site. This is going to be culture today. Repeat blood work reveals WBC of 24, hemoglobin 7.3 and platelet count 310. Sodium 136, potassium 4.1, chloride 101, CO2 19, BUN 24 creatinine 1.43. Blood sugar 139. Capillary blood glucose running 147 and 189. Repeat chest x-ray is unchanged. Patient had increased respiratory rate 40s and 50s with oxygen saturation of 87 and now was increased and Seroquel added this morning. Prognosis remains guarded. 10/18: Patient remains on mechanical ventilation with tidal volume 300, FiO2 60, PEEP has been decreased to 12. Patient will need a PEEP of 8 in order to tr ansfer to long-term care. She is currently on fentanyl drip and Precedex drip. Patient is tracking when her name is stated. She seems to be slightly improved today. Patient has been afebrile, heart rate 106, respiratory rate 32, blood pressure 110/61, pulse ox 98%. Repeat blood work reveals WBC 30.3, hemoglobin 7.2, platelet count 350. Sodium 139, potassium 4.2, chloride 103, CO2 20, BUN 23 creatinine 1.79. Blood sugars are increasing running up 299. Patient will be placed on Levemir. Secretions from tracheotomy sent for culture and in process. She is currently undergoing hemodialysis. 10/23: Patient remains in the intensive care unit on mechanical ventilation with tidal volume 300, FiO2 65 and PEEP of 10. library monitor has been in a sinus rhythm. Patient does open her eyes and appears to be tracking. Blood sugars have been elevated. Levemir will be increased to 40 units daily and scheduled NovoLog increased to 12 units and continue NovoLog every 6 hours per scale. Dariana woodward is receiving hemodialysis today. She is not currently on vasopressors. Patient is on Precedex drip only. Antibiotics in the form of cefepime were started on October 18. Patient has been afebrile, heart rate 126, respiratory rate 36, blood pressure 163/105. Pulse ox 91%. Repeat blood work reveals WBC 16.0, hemoglobin 7.2, platelet count 208. Electrolytes are within normal limits. BUN 62 and creatinine 2.43. Blood sugars running between 259-321. Most recent blood culture from [facility] 20 is no growth at 24 hours. Repeat chest x-ray reveals cardiomegaly and persistent bilateral pulmonary edema. 10/24: Patient is awake, eyes are open and tracking, she is able to follow simple commands. Severe generalized weakness noted. Precedex gtt has been discontinued. Patient is receiving hemodialysis. Her blood sugars have remained elevated for which Levemir increased to 25 units twice daily along with 15 units of NovoLog every 6 hours along with scale. Tidal volume 330, FiO2 60, PEEP of 8. clinical trials manager and health and social care teacher following closely. Anticipate possible discharge by the end of next week to long-term care facility. 10/25: Patient remains in the intensive care unit on mechanical ventilation. Tidal volume 350, FiO2 60, PEEP 8. She is receiving hemodialysis this morning. Her heart rate remains elevated in the 130s. Pulmonary as started her on Cardizem at 60 mg 3 times daily which has not had any improved effect. We'll start the patient on Lopressor 25 mg twice daily. Patient has been afebrile, heart rate respiratory rate 32, blood pressure 151/91, pulse ox 98%. Patient is been transfuse 1 unit of packed RBCs today. Patient's mental status is improving and patient is able to follow simple commands. WBC 12.2, hemoglobin 6.3, platelet count 196. Sodium 135 otherwise looked lites are normal, BUN 48 creatinine 1.99. Blood sugars are running between 120 and 172. Levemir has been increased to 30 mg twice daily continue 15 units of NovoLog every 6 hours with scale. 10/26: Patient remains in intensive care unit, on mechanical ventilation with tidal volume 375, FiO2 50, PEEP of 8. Patient's heart rate remains elevated 120s and Lopressor increased to 50 mg twice daily. Patient seems to be quite anxious and depressed. We will decrease Seroquel to 50 mg twice daily and start patient on Lexapro. Patient received her first dose of Xanax this morning but this did not seem to help heart rate either. She has been afebrile, heart rate 128, blood pressure 149/79, pulse ox 93%. Repeat hemoglobin 7.3. Sodium 135, potassium 3.9, chloride 90, CO2 30, BUN 45 and creatinine 1.94. Blood sugar are improved running between 117-194. We will make further adjustments to insulin and to increase long-acting to 35 units twice daily and decrease NovoLog scheduled to 7 units and continue NovoLog scale. There are problems with patient's trach and consequently placed with [facility]. General surgery to reevaluate trach. 10/27: Patient is complaining of nausea today. Concerned that this is related to Lexapro. We will further decrease Seroquel to 50 mg at bedtime. Patient is being bladder scanned and last bladder scan wasn't 125 mL. She does not have Fo alexander catheter. No fecal management system. She is having a bowel movement about 3 per day. Plan is for CPAP trial today. She is currently on mechanical ventilation with tidal volume 375, FiO2 50 and PEEP of 8. She has been afebrile, heart rate 105 which is much improved from the last few days. Blood pressure 145/88, pulse ox 94%. There is a new consult in place for Dr. Clemente regarding exchanging the trach and possible debridement at site. WBC 11.4, hemoglobin 8.2, blood count 218. Sodium 136, potassium 4.1, chloride 97, CO2 31, BUN 47 creatinine 1.97. Blood sugars running between 129 and 204. We have changed long acting insulin to 35 units twice daily and continue NovoLog 7 units every 6 hours and scale every 6 hours. Nephrology may be decreasing frequency of dialysis treatments. Anticipate probable discharge to long-term care next week. 10/28: Patient was complaining of nausea today which has resolved. CPAP trial will continue today. She is currently on mechanical ventilation with a tidal volume 375, FiO2 of 50, PEEP of 8. She is afebrile, heart rate 108 which continues to show improvement. Blood pressure 133/87, pulse ox 99%. Patient is able to follow commands. And answers appropriately with nodding her head. WBC 10.5, hemoglobin 8.0, potassium 4.6, BUN 46, creatinine 1.96. Patient is currently receiving hemodialysis. 10/29: Patient was found sitting up in bed. Able to answer some questions appropriately. Utilizing kim. Able to follow commands. [place] over elevated blood sugars. Levemir 35 units twice a day will continue at this with a 7 unit coverage. Patient remains afebrile. Heart rate 102, respirations 29, blood pressure 124/74, pulse ox 97% on mechanical ventilation. Mechanical ventilation settings with a tidal volume 375, FiO2 of 50 and a PEEP of 8. Family has been into see patient. Hemodialysis will be held today. 10/30: Patient remains in the ICU on mechanical ventilation. She is not requiring pressure support. She is on CPAP support. She is receiving hemodialysis this morning with plan to start a Friday schedule this week. Blood sugars are stable and running between 140 and 184. She is on tube feedings at goal and having bowel movements every 12 hours. Repeat blood work reveals WBC 8.9, hemoglobin 10.2, platelet count 258. Sodium 133, potassium 5.0, chloride 97, CO2 23, BUN 69 creatinine 2.67. 10/31: Patient is seen today in intensive care unit. She remains on mechanical ventilation with tidal volume 375, FiO2 45 of PEEP of 5. Patient is found sitting in a chair working with physical therapy. Patient is noted to have left arm weakness without pain and good sensation. She is not receiving dialysis today and will be started on Friday regime. Patient's heart rate is better controlled in the 80s, blood pressure 113/65, pulse ox 99%. Patient is been afebrile. Patient has been on cefepime. Repeat blood work reveals WBC 9.3, hemoglobin 6.9 and patient is transfused 1 unit of packed RBCs today. Platelet count 248. Electrolytes are within normal range, BUN 38 and creatinine 2.04. Her blood glucose running between 130 and 193. AST 38. Social work is working with the daughter regarding discharge planning. 11/01: A she was undergoing dialysis with plan for 3 L removed today and dialysis is scheduled Friday. She is in bed and appears to be comfortable. She is able to talk and express herself and is cognitively intact. She remains on mechanical ventilation. She has been afebrile, heart rate 107, blood pressure 115/85, pulse ox 99%. Repeat blood work reveals WBC 8.5, hemoglobin 7.5, platelet count 278. Sodium 136, potassium 4.8, chloride 100, CO2 27, BUN 55 creatinine 2.81. Blood sugar running between 114 and 185. C alcium 10.3, total bilirubin 0.2, AST 34, ALT 34, alkaline phosphatase 144. Social work is working on discharge planning which will be to [facility], [facility] or [facility]. 11/02: Patient remains in the intensive care unit on mechanical ventilation with t idal volume 375, FiO2 40, PEEP of 5. Patient's mental status continues to be improved. She has been afebrile, heart rate 97, blood pressure 144/86, pulse ox 98%. Repeat blood work reveals WBC 8.3, hemoglobin 7.2, platelet count 255. Sodium 135, potassium 4.5, chloride 98, CO2 20, BUN 42 and creatinine 2.36. Blood sugars are running between 124 278. She is scheduled for hemodialysis tomorrow with plan for 4 L to be removed. Social work is working on discharge plan and once patient has been accepted and insurance authorization is obtained if needed, patient will be discharged. 11/03: Patient remains in intensive care unit on mechanical ventilation patient is currently on pressure support of 15, CPAP of 5 and FiO2 of 40%. A trach collar is to be attempted today in order to get the patient discharged to intermediate care facility. Land is for medical [place] on Friday if patient continues to improve. He has been afebrile, heart rate in the 80s, blood pressure 90/57, pulse ox 100%. Repeat blood work reveals WBC 7.5, hemoglobin 6.9, platelet count 255. Sodium 133, potassium 5.1, chloride 97, CO2 27, BUN 59 creatinine 3. Blood sugars up and running 117 164. 11/04 patient remains in ICU, this is day number 55, pulmonary is following closely, they have recommended fenestrated trach, for which Dr. warren is going to perform, patient is anticipated to be discharged to long-term care facility, most likely early next week. She is stable, with no new fevers, antibiotics has been completed, blood sugars are stable, hemoglobin 7.7, WBC 8.5, blood sugars running between 145-150, creatinine of 2.34 11/05: Patient remains in ICU, trach collar replaced by Dr. Zhang this a.m., patient's communicating with handwritten communication mentions that she has back pain, on IV Dilaudid still, we'll replace [place] 7.5, also cannot sleep, muscle relaxants started with cyclobenzaprine, where finalizing discharge planning, to subacute rehab long-term care no fever no chills, coughing a lot, with mucus production, suctioning on the trach when necessary by nursing staff, REVIEW OF SYSTEMS Constitutional: No fever, no chills, no night sweats. No weight change. Profound weakness, + significant fatigue no lethargy. Reported daytime sleepiness. EENT: No headache. No loss of vision. No loss of Hearing. No nasal drainage or congestion. No epistaxis. No sore throat. Lungs: No shortness of breath, cough, no sputum production. No wheezing. Cardiovascular: No chest pain, no lower extremity edema. No palpitations. No paroxysmal nocturnal dyspnea. No orthopnea. No lightheadedness or dizziness. No syncopal episodes. Abdominal: No abdominal pain. No nausea, vomiting. No diarrhea. No constipation. No bloody or tarry stools. loss of appetite- peg tube. Genitourinary: No dysuria, increased frequency, urgency. No urinary retention. Minimal urine production Musculoskeletal: No myalgias. Noted muscle weakness, noted gait dysfunction, no frequent falls. No back pain. No neck pain. Integumentary: Positive wound-decubitus ulcer, trach wound. No rash or pruritus. No unusual bruising. No change in hair or nails. Neurologic: No aphasia. No facial droop. Noted change in mentation-improved. No head injury. No headache. No paralysis. No paresthesia. Psychiatric: suspected depression. positive anxiety. Endocrine: Noted abnormal blood sugars-stable and monitored. Objective - Vital Signs Vital signs: Vital Signs Temp 98.5 F 11/05/20 12:00 Pulse 96 11/05/20 13:00 Resp 18 11/05/20 13:00 BP 139/83 11/05/20 13:00 Pulse Ox 95 11/05/20 13:00 Intake & Output 11/04/20 11/05/20 11/05/20 18:59 06:59 18:59 Intake Total 938 568 388 Output Total 0 0 0 Balance 938 568 388 Weight 86.6 kg Intake: IV 220 50 0.9 Normal Saline @ KVO 20 Cefepime 1 gm In Sodium 200 50 Chloride 0.9% 50 ml @ 12. 5 mls/hr IVPB Q24H [facility] Rx #:[id number] Tube Feeding 408 408 238 Other 310 110 150 Output: Urine 0 0 0 Other: Voiding Method External Catheter # Voids 1 ABP, PAP, CO, CI - Last Documented Arterial Blood Pressure 136/76 - Constitutional General appearance: Present: cooperative, no acute distress - EENT Eyes: Present: anicteric sclerae, dentition normal, normal appearance ENT: Present: NA/AT - Respiratory Respiratory: bilateral: CTA, negative: diminished, dullness, prolonged expiration, prolonged inspiration - Cardiovascular Rhythm: regular Heart sounds: normal: S1, S2 Abnormal Heart Sounds: Absent: systolic murmur, diastolic murmur, rub, S3 Gallop, S4 Gallop, click, other - Gastrointestinal General gastrointestinal: Present: normal bowel sounds, soft - Integumentary Integumentary: Present: normal - Neurologic Neurologic: Present: CNII-XII intact - Psychiatric Psychiatric: Present: A&O x's 3 - Labs CBC & Chem 7: 11/04/20 04:37 11/04/20 04:37 Labs: Abnormal Lab Results - Last 24 Hours (Table) 11/04/20 11/05/20 11/05/20 Range/Units 17:55 00:17 06:17 POC Glucose (mg/dL) 145 H 130 H 121 H (75-99) mg/dL 11/05/20 Range/Units 11:50 POC Glucose (mg/dL) 174 H (75-99) mg/dL Assessment and Plan Plan: ASSESSMENT AND PLAN 1. Acute hypoxic respiratory failure secondary to Covid 19 pneumonia and p ossible bacterial pneumonia. Plan for fenestrated trach collar prior to transfer to subacute rehab long-term stay Patient was intubated on September 11. She is status post 1 dose of Remdesivir and 1 dose of Tocilizumab. Continue Ventolin inhaler 4 times daily, Lovenox 30 mg subcu daily, supplements. Status post PEG tube and trach. Completed cefepime for a Citrobacter pneumonia. 2. Acute diabetic ketoacidosis secondary to Covid 19 pneumonia, controlled with hyperglycemia. Levemir 35 units twice daily and scheduled NovoLog increased to 7 units every 6 hours and continue NovoLog scale every 6 hours. 3. Metabolic encephalopathy secondary to Covid 19 and DKA. 4. Sepsis and septic shock secondary to Covid 19 pneumonia with multiorgan failure. Continue as in #1. Trach drainage cultured. General surgery on consult. 5. Acute metabolic acidosis secondary to acute DKA, Covid 19 and acute kidney injury. Renvela 1600 mg q6h. 6. Diabetes mellitus type 2 uncontrolled with A1c 13.6. Continue as above. 7. Hypophosphatemia status post replacement. 8. Hyperkalemia secondary to DKA, resolved. 9. Sinus tachycardia secondary to sepsis, volume deficiency. Patient is on Cardizem 60 mg 3 times daily, and Lopressor 50 mg twice daily. 10. Acute kidney injury secondary to ATN secondary to Covid 19 and DKA. Continue hemodialysis on Friday. 11. Citrobacter gram-negative pneumonia versus MRSA pneumonia. Completed course of antibiotics. 12. Hypertension. 13. Morbid obesity with BMI of 53. 14. Situational depression and anxiety. Seroquel decreased to 50 mg at bedtime, continue Lexapro 10 mg daily and Xanax 0.25 mg twice daily as needed. 15. DVT prophylaxis. Lovenox. 16. GI prophylaxis. Protonix 40 mg IV push daily. 17. Stage IV pressure ulcer to trach site. Currently utilizing absorptive silver dressing. 18. Stage II decubitus ulcer to coccyx. 19. Critical illness polyneuropathy and myopathy. Continue physical therapy. 20. Anemia of chronic disease. Status post Transfusiob of packed RBCs, continue Aranesp 40 g every 7 days. CODE STATUS: Full code Prognosis guarded. DISCHARGE PLAN [facility] on Friday.
[2020-11-05] MEDS: HYDROcodone/APAP 7.5-325MG 1 EACH TAB PO PRN ×2 (17:33→23:52)
[2020-11-05 17:53] LABS: Glucose,Whole Blood 130 mg/dL (75-99)
[2020-11-05] MEDS: QUEtiapine 50 MG TAB PO SCH (20:02)
[2020-11-05] MEDS: CYCLOBENZAPRINE 10 MG TAB PO SCH (20:02)
[2020-11-05 23:48] LABS: Glucose,Whole Blood 132 mg/dL (75-99)
[2020-11-06 06:11] LABS: Glucose,Whole Blood 137 mg/dL (75-99)
[2020-11-06] MEDS: INSULIN ASPART (NovoLOG) 100 UNIT/ML VIAL SQ SCH ×6 (06:11→17:18)
[2020-11-06] MEDS: NYSTATIN 100,000 UNIT/ML SUSP 500,000 UNIT/5 ML CUP PO SCH ×3 (06:12→17:18)
[2020-11-06] MEDS: INSULIN DETEMIR (LEVEMIR) 100 UNIT/ML SYR SQ SCH ×2 (06:13→20:46)
[2020-11-06] MEDS: SEVELAMER 800 MG TAB PO SCH ×3 (06:14→17:16)
[2020-11-06] MEDS: diphenhydrAMINE 50 MG/ML 1 ML VIAL IVP PRN ×2 (07:00→13:07)
[2020-11-06] MEDS: HYDROcodone/APAP 7.5-325MG 1 EACH TAB PO PRN ×3 (07:00→20:45)
[2020-11-06] MEDS: PANTOPRAZOLE 40 MG/10 ML VIAL IVP SCH ×2 (08:16→20:46)
[2020-11-06] MEDS: CHOLECALCIFEROL 25 MCG (1000 IU) TABLET PO SCH (08:16)
[2020-11-06] MEDS: CHLORHEXIDINE GLUCONATE 15 ML CUP MUCOUS MEM SCH ×2 (08:16→20:46)
[2020-11-06] MEDS: ASCORBIC ACID 500 MG TAB PO SCH ×2 (08:17→20:46)
[2020-11-06] MEDS: METOPROLOL TARTRATE 50 MG TAB PO SCH ×2 (08:17→20:46)
[2020-11-06] MEDS: DILTIAZEM ORAL 60 MG TAB PO SCH ×3 (08:17→20:48)
[2020-11-06] MEDS: ENOXAPARIN 30 MG/0.3 ML SYRINGE SQ SCH (08:18)
[2020-11-06] MEDS: ESCITALOPRAM 10 MG TAB PO SCH (08:18)
[2020-11-06] MEDS: NYSTATIN 100,000 UNIT/GM POWD 15 GM TOPICAL SCH ×3 (08:19→20:47)
[2020-11-06] MEDS: HYDROPHILIC CREAM 180 GM TUBE TOPICAL SCH (08:19)
--- NOTE | 2020-11-06 09:05 | P.PN ---
Subjective Patient is seen in follow-up for acute kidney injury. Oliguric. Status post tracheostomy and PEG tube placement this admission. Receiving tube feeding. Off vent. No changes overnight. Vital signs: Stable. General: The patient appeared well nourished and normally developed. HEENT: Tracheostomy noted. LUNGS: Breath sounds decreased. HEART: Regular rate and rhythm. Abdomen: Soft, no distention. EXTREMITITES: Trace edema. Objective - Vital Signs Vital signs: Vital Signs Temp 97.9 F 11/06/20 00:00 Pulse 118 H 11/06/20 07:00 Resp 15 11/06/20 07:00 BP 173/103 11/06/20 07:00 Pulse Ox 96 11/06/20 07:00 Intake & Output 11/05/20 11/06/20 11/06/20 18:59 06:59 18:59 Intake Total 888 548 68 Output Total 0 0 0 Balance 888 548 68 Weight 87.6 kg Intake: IV 250 50 Cefepime 1 gm In Sodium 250 50 Chloride 0.9% 50 ml @ 12. 5 mls/hr IVPB Q24H [facility] Rx #:[id number] Tube Feeding 408 408 68 Other 230 90 Output: Urine 0 0 0 ABP, PAP, CO, CI - Last Documented Arterial Blood Pressure 136/76 - Labs CBC & Chem 7: 11/04/20 04:37 11/04/20 04:37 Labs: Abnormal Lab Results - Last 24 Hours (Table) 11/05/20 11/05/20 11/05/20 Range/Units 11:50 17:51 23:46 POC Glucose (mg/dL) 174 H 130 H 132 H (75-99) mg/dL 11/06/20 Range/Units 06:09 POC Glucose (mg/dL) 137 H (75-99) mg/dL Assessment and Plan Plan: Assessment: 1. Acute kidney injury secondary to ATN secondary to COVID-19 and DKA. Baseline creatinine is near 1. Started on hemodialysis on September 14. Has p-cath. Oliguric. No hydronephrosis noted on kidney ultrasound. 2. DKA s/p insulin drip and IV fluids. 3. Acute hypoxic respiratory failure secondary to COVID-19 pneumonia. Status post tracheostomy this admission. 4. Metabolic acidosis secondary to acute kidney injury and DKA s/p bicarb drip. Improved postdialysis. 5. Hyponatremia, hypervolemic. Stable. 6. Hyperphosphatemia secondary to acute kidney injury. Maintained on Renvela. 7. Anemia of chronic illness and kidney disease. Maintained on Aranesp. Iron deficiency noted - s/p iv iron. Status post blood transfusion this admission. 8. Fluid overload. Improved with ultrafiltration. Plan: Hemodialysis today. Maintain tube feeds. Avoid nephrotoxins. Continue to monitor renal function and urine output. Monitor for renal recovery. Possible discharge to [facility] tomorrow.
[2020-11-06] MEDS: ALBUTEROL HFA INHALER INHALATION SCH ×4 (09:22→20:07)
--- NOTE | 2020-11-06 10:48 | P.PN ---
Subjective Progress Note Date: 11/06/20 Principal diagnosis: Acute respiratory failure secondary to Covid 19 pneumonia. Patient was reevaluated today on 10/05/2020, remains in the ICU, intubated, mechanically ventilated, patient is doing worse today compared to the last few days, her chest x-ray is worsening, her O2 requirement is rising and she is back on the percent FiO2, I have also increased her PEEP to 16, assist control rate was increased to 52, FiO2 is on the percent. ABG earlier today on 70% FiO2 showed a pO2 of 56 pCO2 of 50 pH of 7.32. She was on assist control rate of 28 tidal volume of 400 FiO2 70% and PEEP of 14. Patient had to be placed on a higher dose of propofol which was increased to 70 fentanyl is at 2 mcg/kg/m, patient will be placed on Nimbex as I'm having difficulty oxygenating the pat ient in spite of high FiO2. She is scheduled to undergo hemodialysis again today, she had 4 L off yesterday. Remains on tube feeds using vital AF at 30 MLS per hour. Patient is tachycardic rate is 129, blood pressure is marginal 86/45, hence may recommend adding norepinephrine. The overall picture clearly showing deterioration in this patient's clinical status, and I have a feeling that this patient will continue to do poorly and she is now maximized on treatment. Again her chest x-ray is showing significant worsening of her infiltrates. Patient was reevaluated today on 10/06/2020, remains in the ICU, intubated and mechanically ventilated, and she is presently in prone position since last night for the next few hours until dialysis which is supposed to start sometime in the next couple of hours. Patient remains on assist control mode of mechanical ventilation, it is volume control with volume of 350 rate of 3 to FiO2 65%. 14. Her ABG showed a pO2 of 68 pCO2 of 52 pH of 7.28. Patient remains on propofol at 75 fentanyl at 3 mcg/kg/h she is also on norepinephrine at 0.02 and Nimbex at 3 mcg/kg/m. Patient is scheduled to have hemodialysis today. Chest x-ray continues to show evidence of bilateral interstitial infiltrates. Patient is on enteral feeding in the form of Nepro at 30/30. Patient has been proned now for the last 17 hours. Electrolytes are normal however her BUN is 30 creatinine 2.93. Blood sugar is 147 WBC count is 5.1 hemoglobin is 11.4. Patient remains on the COVID-19 cocktail. Remains on albuterol, Symbicort, Decadron 4 mg IV push daily, Lovenox 30 mg subcu daily. Insulin protocol. Her tonic 40 mg IV push daily. Off antibiotics. Patient was reevaluated today on 10/07/2020, remains in the ICU, intubated and mechanically ventilated, presently receiving hemodialysis. She is on assist control rate of 32, tidal volume of 350, FiO2 is up to on the percent today, and PEEP of 14. Higher PEEP did not seem to help much, hence I kept her on a PEEP of 14. ABG today showed a pO2 of 63 pCO2 53 pH of 7.25. A shunt is on Nimbex at 4 mcg/kg/m, fentanyl 3 mcg/kg/h, norepinephrine at 0.07 mcg/kg/m, propofol at 75 mcg/kg/m. Again the patient is receiving hemodialysis, and I have instructed the nurses today to go back into prone position after she is done with dialysis. Chest x-ray continues to show worsening interstitial infiltrates and ARDS pic ture. Labs were all reviewed. Her medications were all reviewed today. Basic metabolic profile is normal BUN is 26 creatinine 2.59. LDH is 955 and C- reactive protein is 22.1. Not much of a change in the last few days. Patient was reevaluated today on 10/08/2020, remains in the ICU, intubated and mechanically ventilated, patient is presently in prone position her ABG this morning showed significant improvement in her oxygenation, however continues to have a combined metabolic and respiratory acidosis. She is now on assist control of 350 rate of 36 FiO2 down to 60% PEEP at 14. ABG on 100% showed a pO2 of 209 pCO2 of 59 pH of 7.15. Her assist control rate was increased to 36. Kept her on the same tidal volume of 350. 2 A of bicarb were given. Patient is also on bicarb drip. Patient remains on propofol at 75 mcg/kg/m, she is on Nimbex at 4 mcg/kg/m, and norepinephrine at 0.01 mcg/kg/m. Patient is also on fentanyl at 3 mcg/kg per hour. During my evaluation, the patient was in prone position, however should be placed back in supine position once dialysis is ready and the patient will be dialyzed again today. Chest x-ray from yesterday continues to show evidence of interstitial edema and ARDS. No chest x-ray has been done yet today because the patient was in prone position. Patient remains on Decadron, remains on Lovenox, she is off antibiotics for now. CBC showed WBC 9.9 hemoglobin is 9.1. Hematocrit is 28.7. Electrodes are normal. BUN is 29 and creatinine 2.44. Bicarb is 20. LDH is up a bit 1026, C-reactive protein is about the same at 19.7. Progress note dated 10/09/2020. This is a 35-year-old black female with history of acute COVID 19 infection, with acute hypoxemic respiratory failure. She was admitted way back on September 10. Because of failure to wean from mechanical ventilation, she underwent tracheostomy and PEG tube placement on September 18. Currently remains on the ventilator. She is on the VC + (PRVC) modality, with a targeted tidal volume 350 and inspiratory time of 0.9 seconds. Her rate is set at 36. FiO2 70%, and PEEP of 14. On those settings, her arterial blood gases show a PaO2 of 72, pCO2 47, and pH 7.23. Currently, the patient's getting daily hemodialysis. Her drips including propofol at 75 mcg/kg/m, Nimbex at 3.5 mcg/kg/m, with [id number] monitoring, fentanyl at 3 g kilogram per hour, norepinephrine at 7 mcg/m, saline at 20 mL an hour, and vital 1.2 at 10 mL an hour, which is goal. White count 5.4, hemoglobin 9.2, hematocrit 28.8, and platelet count 217,000. Sodium 137, potassium 4.2, chlorides 108, CO2 19, anion gap 10, BUN 22, and creatinine 1.64. The patient's chest x-ray is consistent with bilateral infilt rates, and is essentially unchanged, and consistent with a diagnosis of coronavirus pneumonia. Progress note dated 10/10/2020. 35-year-old black female, with a history of COVID 19 infection and acute hypoxemic respiratory failure. She was admitted way back on September 10. Because of failure to wean from mechanical ventilation, she underwent tracheostomy and PEG tube placement on September 18. She remains on the mechanical ventilator. She is on the pressure regulated volume control modality. Her targeted tidal volume is 350 mL, and her inspiratory time 0.9 seconds. The patient's on 70% FiO2, PEEP o f 14, with a rate of 36. The patient is receiving Nimbex at 4.5 mcg/kg/m, propofol at 65 mcg/kg/m, norepinephrine at 3.5 mcg/m, fentanyl at 2.5 mcg/kg/h, and vital AF 1.2 at 10 mL an hour which is goal. The patient's blood gases from this morning show a PaO2 of 79, 5, and a pH is 7.29. Today's chest x-ray is currently still pending. Overnight, there've been no major changes in her condition. White count 7.8, hemoglobin 7.5, hematocrit 23.1, and platelet count 267,000. Sodium 139, potassium 3.9, chlorides 109, CO2 20, anion gap 10, BUN 20, with creatinine 1.29. Progress note dated 10/11/2020. 35-year-old black female with a history of COVID 19 infection and acute hypoxemic respiratory failure. She was admitted back on September 10. Because of failure to wean from mechanical ventilation, she underwent tracheostomy and PEG tube placement on September 18. She remains on the mechanical ventilator to this day. Currently, she is on pressure regulated [place] control, with a targeted tidal volume of 350, inspiratory time of 0.9 seconds, FiO2 70%, PEEP of 14, and a rate of 36. Her blood gases show a PaO2 of 74, pCO2 46, pH 7.28. In an attempt to reduce the FiO2, I was going to go up on the PEEP, but I was reminded that the patient has a issue with high airway pressures, potentially causing airway and alveolar trauma. For that reason, I will switch her to volume assist control modality, with a tidal volume at 325, rate 32, FiO2 70%, and PEEP of 14. This will cause permissive hypercapnic ventilation. I'm okay with this, and I will except a pH of 7.15 or higher. He blood gas will be done in one hour. The patient has daily hemodialysis. We will attempt to prone the patient for 16 hours today. She apparently does well with that modality. Currently, she is on saline at KVO, propofol at 65 mcg/kg/m, fentanyl at 2.5 mcg/kg/h, Nimbex at 3.5 mcg/kg/m, and norepinephrine has been weaned off. She is getting vital AF, at 10 mL an hour, which is goal. Over the last 3 days, since I've been seeing her, there is not been much in the way of progress. White count 9.3, hemoglobin 8.1, hematocrit 26.4, platelet count 276,000. Sodium 136, potassium 4.3, chlorides 103, CO2 20, anion gap 13, BUN and creatinine were 20 and 1.14. Chest x-ray today shows improvement of volume status. Progress note dated 10/12/2020. 35-year-old black female again seen in the intensive care unit, room 265. She has a history of coronavirus pneumonia with acute hypoxemic respiratory failure. She was admitted way back on September 10. She ended up with a tracheostomy and PEG tube placement on September 18 for failure to wean from mechanical ventilation. She remains on the ventilator. She is on volume assist control mode rate of 32, tidal volume 325, FiO2 70%, PEEP of 14. Arterial blood gases show pO2 of 54, pCO2 60, pH is 7.17. She's getting hemodialysis today. Peak airway pressures about 21 cm water. He is getting propofol at 75 mcg/kg/m, fentanyl at 3.5 mcg/kg/h, Nimbex at 7 mcg/kg/m, and saline at KVO. Her tube feeds include vital AF at 10 mL an hour, which is goal. She currently tested negative for coronavirus. She is getting hemodialysis today. Chest x-rays essentially unchanged. White count 10.4, he will May 0.1, hematocrit 25.9, platelet count 273,000. Sodium 133, potassium 4.7, chlorides 100, CO2 19, anion gap 14, BUN and creatinine were 21 and 0.91. This electrolyte profile consistent with an anion gap metabolic acidosis. Saturations currently are 95%. Medications are reviewed. Progress note dated 10/13/2020. 35-year-old black female, seen again in the ICU, room 265. She has a history of coronavirus pneumonia with acute hypoxemic respiratory failure. She was admitted to this hospital on the . She ended up with a tracheostomy and PEG tube being placed on September 18 for failure to wean from mechanical ventilation. She remains on mechanical ventilator. Currently, she is on the volume assist control mode, rate 32, tidal volume 325, FiO2 70%, PEEP of 14. Arterial blood gases show pO2 70, pCO2 of 56, and a pH is 7.26. The patient is currently also on Nimbex at 2.5 mcg/kg/m with train of 4 monitoring, propofol at 50 mcg/kg/m, and fentanyl at 2 mcg/kg/h. The patient's also getting vital AF and 10 mL an hour, which is goal. The patient's airway pressures today are a bit better. Her peak airway pressures are in the low 40s. While she was being prone yesterday, there was a significant cuff leak. Hence, she had be placed in the supine position. White count 14.2, hemoglobin 8.3, hematocrit 26.4, and platelet count 285,000. Sodium 134, potassium 4, chlorides 99, CO2 23, anion gap 12, BUN 21, and creatinine 0.70. Microbiology is all negative. Chest x-ray continues to show diffuse bilateral infiltrates. Progress note dated 10/14/2020. 35-year-old black female seen again in room 265. She has a history of coronavirus pneumonia with acute hypoxemic respiratory failure. She was admitted to the hospital on September 10. She ended up with a tracheostomy and PEG tube being placed on September 18 for failure to wean from mechanical ventilation. Roslyn oconnor remains on the ventilator. Currently, she is on volume assist control mode, rate 32, tidal volume 325, FiO2 70%, and PEEP of 14. She's receiving propofol 60 mcg/kg/m, fentanyl at 3 mcg/kg/h, and Nimbex at 7 mcg/kg/m. The patient is also receiving saline at 20 mL an hour. She's been on and off of norepinephrine area and currently is on hold. She is also receiving vital AF at 10 mL an hour which is goal. Laboratory data from today is not yet available. From October 13, white count 14.2, hemoglobin 8.3, and platelet count was normal. Also, blood gases from yesterday show pO2 70, pCO2 of 56, and pH is 7.26. Electrolytes are essentially within normal range. Chest x-ray from yesterday continues to show bilateral infiltrates, without much change. Progress note dated 10/15/2020. 35-year-old black female, again seen in room 265. She has a history of coronavirus pneumonia, with acute hypoxemic respiratory failure. She was admitted to the hospital back on September 10. She ended up with a tracheostomy and PEG tube being placed on September 18 for failure to wean from mechanical ventilation. She's been in the hospital now for 35 days. Currently remains on the ventilator. She's on the volume assist control mode, rate 32, tidal volume 325, FiO2 70%, EPAP of 18. Blood gases show pO2 of 80, pCO2 61, pH is 7.15. The patient will have hemodialysis today. Yesterday, hemodialysis was done, and 4 L was removed. The patient is currently on propofol at 70 mcg/kg/m, fentanyl at 3 mcg/kg/h, Nimbex at 8 mcg/kg/m, no epinephrine at 6 mg/m, 0.9 at 10 mL an hour, and vital AF at 10 mL an hour which is goal. Unfortunately, she is twitching 4 out of 4 on the Nimbex at the current dose, and we will switch her to rocuronium at 5 mcg/kg/m. We'll titrate accordingly, and monitor the patient with [id number] testing. Current laboratory data includes a white count of 33.9, hemoglobin 8.5, hematocrit 26.4, and platelet count 367,000. Sodium 135, potassium 4.5, chlorides 100, CO2 21, anion gap 14, BUN 19, creatinine 0.96. Microbiologic data is all negative. Progress note dated 10/30/2020. 35-year-old black female, who is now been in the hospital for 50 days. The patient was admitted back on September 10. The patient underwent tracheostomy and PEG tube placement on September 18, for chronic respiratory failure, failure to wean from mechanical ventilation, secondary to severe coronavirus pneumonia and hypoxemia. She remains on mechanical ventilator. She is on the VC plus mode, with a targ eted tidal volume of 375, and inspiratory time of 0.9 seconds. The rate of 32, FiO2 45%, and PEEP of 6. Blood gases were not done today. She remains on saline at 10 mL an hour, and vital AF at 46 mL an hour, which is goal. We will attempt to place her on some pressure support and CPAP. We'll use settings of 15/5. She did very well with that last week. Currently, she remains on cefepime. A white count 8.9, hemoglobin 7.2, hematocrit 21.9, and a normal platelet count. Sodium 133, potassium 5, chlorides 97, CO2 23, anion gap is 13, BUN 69, and creatinine 2.67. One of the discharge issues, as the patient is currently still on daily hemodialysis. No chest x-ray today. Progress note dated 10/31/2020. 35-year-old black female, who is now been in the hospital for 51 days. The patient was admitted back on September 10. She underwent tracheostomy and PEG tube placement on September 18 for chronic respiratory failure with failure to wean from the chemical ventilation, secondary to severe coronavirus pneumonia and hypoxemia. Yesterday, she was on the VC plus mode. Currently, suggested a, she 's been on pressure support of 15, and CPAP of 5. When on VC plus, she has a targeted tidal volume of 375, respiratory rate of 32, inspiratory time of 0.9 seconds, FiO2 45%, and PEEP of 5. Blood gases, done on pressure support, show pO2 of 76, pCO2 47, and pH 7.38. The patient's on saline at 10 mL an hour, and vital AF at 46, which is goal. White count 9.3, hemoglobin 6.9, hematocrit 21.6, platelet count 248,000. Sodium potassium chloride CO2 all normal. Anion gap 7, BUN and creatinine were 38 and 2.04. Today's chest x-ray is stable. Progress note dated 11/01/2020. 35-year-old white female, who is been in the hospital for 52 days. She was admitted back on 09/10/2020. She was admitted with a diagnosis of acute hypoxemic respiratory failure secondary to coronavirus pneumonia. She underwent tracheostomy and PEG tube placement on September 18, for failure to wean from mechanical ventilation. Currently, the patient's on pressure support of 15 cm water, and CPAP of 5 cm water. When she is not on these settings, she is on the VC plus modality. No blood gases today. She's getting saline at 10 mL an hour. Getting vital AF at 46 mL now which is goal. She is receiving hemodialysis today. We are hoping, the patient can be transferred to a long-term acute care facility. That still not decided as yet. White count 8.5, hemoglobin 7.5, hematocrit 23.6, and platelet count 278,000. Sodium 136, potassium 4.8, chlorides 100, CO2 27, anion gap 9, BUN 55, creatinine 2.81. Chest x-ray from yesterday shows a stable pattern of diffuse bilateral infiltrates. Progress note dated 11/02/2020 35-year-old black female with a history of prolonged hospitalization a 53 days for hypoxemic respiratory failure secondary to coronavirus pneumonia. The patient was admitted back on 09/10/2020. For respiratory failure, and failure to wean from mechanical ventilation, she underwent tracheostomy and PEG tube placement on September 18. Currently, the patient's on the VC plus mode. Targeted tidal volume is 375 mL, inspiratory time is 0.9 seconds, rate 32, FiO2 40%, PEEP of 5. No blood gases were done. The patient's on saline at KVO. She received hemodialysis yesterday and 4 L was removed. She is on vital AF at 46 mL an hour, which is goal. The patient is ready for discharge to long-term acute care my opinion. White count 9.3 hemoglobin 7.2, hematocrit 22.2, and platelet count 255,000. Sodium 135, potassium 4.5, chlorides 98, CO2 28, anion gap 9, BUN 42, and creatinine 2.36. Chest x-ray from 2 days ago is reviewed. There has been no significant changes. Progress note dated 11/03/2020. 35 -year-old black female with a history of prolonged hospitalization of 54 days, with respiratory failure and mechanical ventilation for coronavirus pneumonia. The patient was admitted back on 09/10/2020. The patient developed respiratory failure and failure to wean from mechanical ventilation. She underwent tracheostomy and PEG tube placement on September 18. Currently, the patient has been on pressure support of 15 and CPAP of 5 and FiO2 40%, and yesterday. We'll attempt some trach collar today. The patient's getting saline at 10 mL an hour. The patient will have hemodialysis today. We are hoping to get the patient off to a long-term acute care facility. White count 7.5, hemoglobin 6.9, hematocrit 22.6, and platelet count 255,000. Sodium 133, potassium 5.1, chlorides 97, CO2 27, anion gap 9, BUN 59, and creatinine 3.0. Progress note dated 11/04/2020. 35-year-old black female with a history of prolonged hospitalization a 54 days, with respiratory failure and mechanical ventilation for coronavirus pneumonia. The patient was admitted back on 09/10/2020. The patient developed respiratory failure and failure to wean from mechanical ventilation. She underwent tra cheostomy and PEG tube placement on September 18. Currently, the patient has been on pressure support of 15 and CPAP of 5, with an FiO2 of 40%. Yesterday, we placed the patient on a trach collar chest trach shield, at 40%. The patient remains on that modality. She seems be doing relatively well. The patient is not receiving any IV fluids. The patient is getting nutrition with Nepro at 34 mL an hour. She is getting hemodialysis, Friday, Friday, and Friday. She looks much more stable. White count 8.5, hemoglobin 7.7, hematocrit 24.3, and platelet count 250,000. Sodium 132, potassium 4.4, chlorides 96, CO2 27, anion gap 9, BUN 41, and creatinine 2.34. Chest x-ray shows bilateral infiltrates, relatively stable at this time. Progress note dated 11/05/2020. 35-year-old black female with history of prolonged hospitalization a 55 days. She was admitted with a diagnosis of coronavirus pneumonia, with hypoxemic respiratory failure. She was admitted on September 10. The patient was unable to be weaned from mechanical ventilation, and had a tracheostomy tube and PEG tube placed on September 08. Today, we changed tracheostomy tube to to a #6 cuffed Shiley tube. Currently, for the last 2 days, the patient has been on 35% trach shield. She's not receiving any IV fluids. She is getting Nepro at 34 mL now which is goal. Clinically she looks very well. No laboratory data today. No hemodial ysis today. Currently, she is on a Friday, Friday, Friday, hemodialysis schedule. We are hoping to get her to long-term acute care on Friday. Progress note dated 11/06/2020. 35-year-old black female, with a history of prolonged hospitalization at 56 days. The patient was initially admitted with coronavirus pneumonia and hypoxemic respiratory failure, echo on September 10. Because of failure to wean from mechanical ventilation, the patient had a tracheostomy tube insertion and PEG tube placement, on September 18. Yesterday, we did a tracheostomy tube change, removing the Bivona tube, and putting in a #6 cuffed Shiley tube. Currently, she is on 28% trach collar, no IV fluids, and Nepro at goal, which is 34 mL an hour. Thus far, no laboratory data today. Objective - Vital Signs Vital signs: Vital Signs Temp 99.1 F 11/06/20 08:00 Pulse 92 11/06/20 10:00 Resp 18 11/06/20 10:00 BP 140/92 11/06/20 10:00 Pulse Ox 95 11/06/20 10:00 Intake & Output 11/05/20 11/06/20 11/06/20 18:59 06:59 18:59 Intake Total 888 548 136 Output Total 0 0 0 Balance 888 548 136 Weight 87.6 kg 87.6 kg Intake: IV 250 50 Cefepime 1 gm In Sodium 250 50 Chloride 0.9% 50 ml @ 12. 5 mls/hr IVPB Q24H [facility] Rx #:[id number] Tube Feeding 408 408 136 Other 230 90 Output: Urine 0 0 0 ABP, PAP, CO, CI - Last Documented Arterial Blood Pressure 136/76 - Exam No acute distress, currently not sedated or paralyzed, with a midline tracheostomy tube in place. The patient is currently on trach shield. HEENT examination is grossly unremarkable. Neck supple. Full range of motion. No adenopathy thyromegaly or neck vein dis tention. Midline tracheostomy tube noted. Cardiovascular examination reveals regular rhythm rate. S1-S2 normal. No S3 or S4. No discernible murmur noted. Heart sounds are distant. Heart rate 92 beats per minute. Lungs reveal diffuse bilateral rhonchi and few scattered crackles. There are no wheezes. Breath sounds equal bilaterally. Saturations are 98% on trach shield. Abdomen soft bowel sounds are heard. No masses or tenderness. PEG tube noted. Extremities are intact. No cyanosis clubbing or edema. Skin is without rash or lesion. Neurologic examination is stable. The patient has significant extremity weakness. Neurologic examination is unchanged. - Labs CBC & Chem 7: 11/04/20 04:37 11/04/20 04:37 Labs: Abnormal Lab Results - Last 24 Hours (Table) 11/05/20 11/05/20 11/05/20 Range/Units 11:50 17:51 23:46 POC Glucose (mg/dL) 174 H 130 H 132 H (75-99) mg/dL 11/06/20 Range/Units 06:09 POC Glucose (mg/dL) 137 H (75-99) mg/dL Assessment and Plan Assessment: Acute hypoxemic respiratory failure, secondary to COVID 19 pneumonia, with ARDS, with admission to hospital on September 10, transferred to ICU on the , intubation on September 11, and tracheostomy and PEG tube placement on September 18. Acute respiratory distress syndrome (ARDS). Acute kidney injury, currently on hemodialysis. Failure to wean from mechanical ventilator, likely secondary to critical illness polyneuropathy/myopathy. Acute diabetic ketoacidosis, resolved. Sepsis, secondary to COVID 19 pneumonia. Acinetobacter tracheobronchitis as bronchopneumonia, currently on cefepime. Nonsustained ventricular tachycardia. Anion gap metabolic acidosis. Poorly controlled type 2 diabetes. Elevated inflammatory markers secondary to coronavirus infection. History of essential hypertension. Generalized anxiety disorder. Morbid obesity. Plan: Plan dated 10/09/2020. The patient remains on the pressure regulated volume control mode of ventilation. The patient is being nourished at goal. The patient remains on propofol, Nimbex, and fentanyl. In addition, the patient remains on norepinephrine. Labs, x-rays, and medications are all reviewed. Prognosis is very poor. We will continue to follow. Additional recommendations and suggestions are forthcoming. The patient remains on daily hemodialysis. Plan dated 10/10/2020. The patient remains about the same. She remains on the ventilator. The patient is status post tracheostomy and PEG tube placement. She remains sedated with propofol and fentanyl. She is also chemically paralyzed with Nimbex. She remains on norepinephrine at 8.5 mcg/m for low blood pressure. Cultures are all negative. She remains on periodic hemodialysis. Additional recommendations and suggestions are forthcoming. Diagnosis is guarded. We will continue to follow make recommendations where appropriate. Plan dated 10/11/2020. The patient remains on mechanical ventilator. We will attempt to prone the patient today for 16 hours, to improve oxygenation. In addition, the patient is switched from pressure regulated volume control modality to volume assist control. Settings include tidal volume at 325, rate 32, FiO2 70%, PEEP of 14. A repeat blood gas to be done in an hour. Additional recommendations and suggestions are forthcoming. The patient is currently undergoing daily hemodialysis. Prognosis remains very poor. We will continue to follow make recommendations where appropriate. Plan dated 10/12/2020. The patient remains on mechanical ventilator. We'll see for can wean down the Nimbex. This seems like a high-dose to me. He should be doing [id number] monitoring. The patient is receiving hemodialysis today. Saturations are 95 and 96%. Peak airway pressures 41 cm water. Additional recommendations and suggestions are forthcoming. Prognosis is very guarded. She is getting nutrition at goal. The patient does better in terms of her saturations, when she is in the prone position. Today we will place her in the prone position again. Plan dated 10/13/2020. The patient remains on mechanical ventilator. She did not do well yesterday with prone because of the tracheostomy cuff leak. Her airway pressures are a bit lower today. She remains on Nimbex, propofol, and fentanyl. She is getting nutrition at goal. Today's blood gases are reasonable. She's currently getting daily hemodialysis. We will continue to follow. Additional recommendations and suggestions are forthcoming. We'll attempt to get the paralysis off. No additional recommendations are made at this time. Plan dated 10/14/2020. The patient remains on mechanical ventilator. Essentially, she's been stable on propofol, fentanyl, and Nimbex. She remains on vital AF at goal. She's been on and off norepinephrine through the night. Labs and x-rays from today are still pending. Vent settings has not changed. We will continue to follow make recommendations where appropriate. Overall prognosis remains very guarded. Plan dated 10/15/2020. The patient remains on the ventilator. She remains on propofol, fentanyl, and Nimbex. She's also on norepinephrine at 6 mg/m. We don't seem to be adequately paralyzing this patient. We will switch to a different paralytic. She did have hemodialysis yesterday. 4 L was removed. She'll have hemodialysis today. Once we have her properly paralyzed, the patient will have a repeat blood gas. I may end up increasing her rate up to 36. Overall prognosis remains very poor. Plan dated 10/30/2020. The patient will begin be placed on pressure support of 15 and CPAP of 5. She apparently did well with the settings late last week. The patient is being nourished at goal. A gases were not done. She remains on cefepime for the Acinetobacter. Overall prognosis remains very poor. The patient has profound weakness, and failure to wean from mechanical ventilation, secondary to critical illness polyneuropathy/myopathy. We are attempting to place the patient. Daily hemodialysis is hampering our efforts. Plan dated 10/31/2020. The patient has been on pressure support and CPAP of 15 and 5, since 2:00 yesterday. The patient appears to be doing well, and, it is stable hemodynamically. We are hoping for discharge tomorrow. No additional recommendations are made. She remains on cefepime for Acinetobacter. She has profound weakness, likely secondary to critical illness polyneuropathy/myopathy. Additional recommendations and suggestions are forthcoming. We will continue to follow make recommendations were appropriate. The patient has now been in the hospital for 51 days. Plan dated 11/01/2020. The chest x-ray from yesterday is reviewed. The patient remains on saline at 10 mL an hour, and vital AF at 46 mL an hour, which is goal. No blood gases today. Labs are reviewed. Currently, the patient's on pressure support of 15 cm water, and CPAP of 5 cm water, beginning at 8:00 this morning. Overnight, she was placed back on the ventilator, on the VC plus modality. She is receiving hemodialysis today. We are hoping for a possible discharge to long-term acute care. That has not been decided yet. The patient has been in the hospital for 52 days. We will continue to follow make recommendations where appropriate. Plan dated 11/02/2020. Currently, the patient remains on the VC plus mode of ventilation. Yesterday, she was placed on pressure support and CPAP and did well. She is awake and alert. She my opinion she's ready for discharge to long-term acute care. She's being nourished at goal. She's getting saline at KVO. She had hemodialysis yesterday in 4 L was removed. Chest x-ray stable and unchanged. Blood gases not been done recently. Laboratory data is reviewed. Prognosis is guarded. Additional recommendations and suggestions are forthcoming. The patient has bee n here in the hospital for now 53 days. Plan dated 11/03/2020. Currently, the patient has been on pressure support of 15 and CPAP of 5 and FiO2 40%, since yesterday. We will attempt some trach collar her trach shield today. The patient is getting saline at 10 mL an hour. Today he is a hemodialysis today. Labs are reviewed. No chest x-ray today. Oxygen exchange is good. Saturations are 100%. Awake and alert. We will continue to follow make recommendations where appropriate. The patient has been in the hospital now for 54 days. Plan dated 11/04/2020. The patient has now been here for 55 days. On a positive note, we've been able to transition her from support and CPAP, to a trach shield at 40%. She is getting hemodialysis, Friday, Friday, and Friday. From my perspective, the patient is stable to transfer to long-term acute care. Her most recent chest x- ray is stable. Labs, when done, have also been stable. She certainly is doing much better today than she has been over the last couple of weeks. Prognosis is still guarded. Additional recommendations and suggestions are forthcoming. We will continue to follow and make recommendations, where appropriate. Plan dated 11/05/2020. Currently, the patient's been here now for 56 days. We did change her tracheostomy tube today to a #6 Shiley cuffed tube. Clinically she looks well. She's been on 35% trach collar now for more than a couple days. She's not receiving any IV fluids. No lab work today. She's getting Nepro at 34 mL now which is goal. She's currently on the Friday, Friday, Friday hemodialysis schedule. Hopeful transfer to long-term acute care next day or 2. Additional recommendations and suggestions are forthcoming. We will continue to follow make recommendations where appropriate. Plan dated 11/06/2020. The patient is now been in the hospital for 57 days. The patient is currently on trach collar at 28%. The patient is not receiving any IV fluids. Clinically she looks very stable. Yesterday, we placed a #6 Shiley cuffed tracheostomy tube in. She tolerated that well. She remains on tube feeds. I believe the goal is to get her to the [facility] tomorrow. We will continue to follow. Prognosis is guarded. No additional recommendations are made at this time. Time with Patient: Less than 30
[2020-11-06 11:18] LABS: Glucose,Whole Blood 103 mg/dL (75-99)
[2020-11-06] MEDS: ONDANSETRON 4 MG/2 ML VIAL IVP PRN (12:41)
--- NOTE | 2020-11-06 16:03 | P.PN ---
Subjective Progress Note Date: 11/06/20 HISTORY OF PRESENT ILLNESS 35-year-old female patient of Dr. Arroyo with past medical history of type 2 diabetes comes in with acute shortness of breath associated with high light sugars. Patient on admission was found to have a fever of 101.5 pulse rate 125 respiratory rate 20. Blood pressure 132/106. On chest x-ray obtained in the ER suggestive of bilateral infiltrates concerning for call with pneumonia. COVID PCR was positive. On admissions patient had an ABG with a pH of 7.14 pCO2 of 20, pO2 of 59, bicarb of 7. Patient's blood sugar on admission was 424 on assessment today patient's blood work patient had a sodium 135 potassium 5.4 chloride 123 bicarb less than 5 and creatinine 0.73. D-dimer was elevated on admission patient 9 28 patient given 1 L of IV fluids followed by normal saline running at 200 mL/h. Patient was positive for acetone on admission. She will anion gap closed and was switched to D5NS. Insulin drip was continued during the night and was switched to patient's home medication this morning. One dose of remdesiver was ordered. Apparently around noon, A- team was called on the patient secondary to hypoxia patient's oxygen saturation dropped to the 70s and 80s on 100% nonrebreather. Patient was switched to BiPAP on 18/12 and is doing better o FiO2 of 80%. ABG was obtained and ph was 7. 14 pCO2 of 28 bicarb of 7 pO2 of 17. Patient noted to have uncompensated metabolic acidosis with compensated respiratory alkalosis. Stat dose of 1 amp bicarb was given and followed by sodium bicarbonate drip. Insulin drip restarted. Patient's initiated on dexamethasone 6 mg IV twice a day. Potassium phosphate ordered as phosphorus is low. Patient's repeat blood gases suggest a pH of 7.25, CO2 32 pO2 of 72 bicarb 14. I will not normal saline at 100 mL/h as patient's anion gap has increased. Patient given 1 dose of 2 mg of morphine with improvement in respiratory rate. One dose of Ativan 0.5 mg was given. Xanax 0.25 twice a day along with Ativan 0.5 IV every 6 hours ordered for the patient. Vitals were evaluated patient pulse 129 [id number]. She was moved to the ICU. Precedex drip was initiated. Lopressor was initiated at 25 twice a day. Metoprolol tartrate 5 mg IV every 6 hours. Systolic blood pressure more than 160. Started chest x-ray was obtained and suggest stable bilateral consolidation suggestive of COVID-19 pneumonia. 09/12 patient is seen in the ICU is currently mechanically ventilated and sedated on vent settings of respiratory rate 36, tidal volume 375 FiO2 80% PEEP of 18.. Vital signs reviewed patient had a temp of 100.4 pulse 150 respiratory rate 36 oxygen saturation 95% on 80% on fio2 .'s labs are reviewed which patient had a d-dimer 1.84 that is increased to 14.3. Arterial Blood gas suggest ph 7.35, CO2 40, po2 62, . Her BMP suggest a sodium 135 potassium 3.7 chloride 112 bicarb 21 creatinine 1.57 for calcitonin is 3.5 CRP is increased from 8.78.2 LDH is increased to 2614. Patient remains on Pneumovax, propofol drip. Lovenox increased to 50 subcu twice a day. Patient received 2 L of IV fluids. Continue IV fluids at 100 mL/h. Bicarb drip discontinued patient initiated on Zosyn 3.375 every 8 hours. Continue insulin drip at 4 units per hour. Patient is currently in prone positioning 09/13: Patient evaluated in the ICU remains on Ventilation continues to be sedated, in prone position. Vent settings are respiratory rate 36, tidal vital 375, FiO2 70% PEEP of 18. ABG shows pO2 of 82, PCO2 of 39, pH is 7.19. Latest labs show WBC 11.1, hemoglobin 13.2, d-dimer still pending, but yesterday was up to 14.3. Creatinine up to 3.4, BUN 24 sodium 137, potassium 4.0. Patient's urine output has been low, nephrology on consult. Bicarb drip increased to 100 miles an hour, receiving another liter of normal saline, she did have a ultrasound that showed unremarkable bilateral kidneys. Repeat chest x-ray showed bilateral lung infiltrates that are stable. Anion gap has closed, will start Lantus 10 units at at bedtime Novolog every 6 hours. 09/14: Patient is seen in the ICU, still currently mechanically ventilated and sedated. She continues in the prone position. Her oxygen quickly drops if she is not in prone. Patient's kidney function has worsened. Laboratory values show creatinine of 4.87, BUN 33, LDH 2191, C-reactive protein 2.7. ABG shows pH 7.32, pO2 of 60, pCO2 43. Patient is making almost no urine overnight. Nephrology is following patient continues on cefepime for urinary tract infection, culture is still pending. Vascular has been consulted for placement of temporary hemodialysis catheter for plans for dialysis. 09/15: Patient evaluated in the ICU, continues to be mechanically ventilated and sedated on assist control ventilation rate of 36, tidal volume 375, FiO2 100% and PEEP of 18. ABG today shows pO2 58, pCO2 of 45, and pH 7.35. She continues on tube feedings. Yesterday patient underwent ultrasound-guided right internal jugular non-tunneled hemodialysis catheter placement. Patient underwent hemodialysis treatment last night and plans have another hemodialysis treatment today. She continues to make almost no urine. She continues on cefepime for antibiotic coverage, and continues on Decadron and Lovenox. 09/16: Patient seen on follow-up remains in the ICU mechanically ventilated and sedated. She continues on assist control rate of 36, tidal volume 375, FiO2 100% and PEEP of 20. PEEP had to be increased due to patient had to be in supine position for dialysis, will go back to prone position once dialysis is complete. ABG shows pH 7.32, pCO2 49, PaO2 61. Laboratory values showed WBC 11.2, hemoglobin 11, sodium 134, creatinine 4.44, BUN 38. Urine culture shows no growth, blood cultures show no growth to date. Repeat chest x-ray shows bilateral pleural effusions, correlate for ARDS, pulmonary edema, diffuse pneumonia, findings are stable from last exam. Patient does not require any pressors, blood pressure 133/57, heart rate 78. 5/16: Patient was evaluated in the ICU today for follow-up. She continues to be intubated and on mechanical ventilation. Current vent settings are tidal volume 375, FiO2 100% and PEEP of 20. ABG shows pH 7.37, pCO2 40, pO2 102. She continues with intermittent prone positioning. Patient continues to have almost no urine output, maintained on dialysis. Patient received dialysis yesterday without complication. Laboratory values revealed WBC 10.3, hemoglobin 10.4, sodium 132, potassium 3.1, BUN 33, creatinine 4.29, LDH 1913, C-reactive protein 1.3. Urine and sputum cultures are negative, blood cultures show no growth to date. Consult placed to dietary to start TPN[ ] 09/18: She remains in the intensive care unit intubated and on mechanical ventilation with tidal volume 375, FiO2 60 and PEEP of 20. Patient is being prone to daily at approximately 16 hours per day. Pulmonary medicine has added in Dr. Zhang to do PEG tube and trach today. Patient is not on vasopressors. Repeat blood work reveals WBC 12.6, hemoglobin 9.8, platelet count 212. Sodium 133, potassium 3.2, chloride 102, CO2 21, BUN 35 and creatinine 4.12. Blood sugar 126. Patient underwent hemodialysis yesterday with removal of 2 L and is scheduled again today with goal of 2-3 L and is scheduled again tomorrow. 09/19: She is scheduled for hemodialysis today and is off fentanyl temporarily. Patient is status post trach and PEG tube yesterday. And she remains on mechanical ventilation. Pulse ox 93-95%. She has been afebrile, heart rate 64, respiratory rate 36, blood pressure 115/50. Fentanyl is off to improve blood pressure for hemodialysis which is scheduled for today. Contacted vascular surgery about permanent hemodialysis catheter. Repeat blood work reveals WBC 14.3, hemoglobin 9.6, platelet count 200. D-dimer 6.48. LDH 1686. C-reactive protein 1.1. BUN 34 creatinine 3.81. Sodium 130, potassium 3.5, chloride 101, CO2 18. Blood sugars running between 101 198. Plan is to wean off Pneumovax today. Patient remains on insulin drip. Repeat chest x-ray reveals bilateral multifocal confluent opacities consistent with COVID-19. Some improved aerati on periphery of the left lung and worsening opacities throughout the right lung. 09/20: She remains in the intensive care unit on mechanical ventilation. She has been afebrile, heart rate 65, respiratory rate 37, blood pressure 121/70, pulse ox 91-99%. Repeat blood work reveals WBC 14.5, hemoglobin 9.1, platelet count 216. D-dimer 6.13. Sodium 133, potassium 3.1, chloride 102, CO2 18, BUN 35 and creatinine 4.27. Blood sugars running between 128 and 143. LDH 1717. C- reactive protein 1.7. Patient remains on insulin drip which will be transitioned to NovoLog scale every 6 hours. Patient is scheduled for permanent hemodialysis catheter placement today with vascular surgery. Repeat chest x-ray reveals stable diffuse bilateral interstitial and airspace disease. Possible small right effusion. His work is following for transfer to [facility]. Do not anticipate discharge until next week. 09/21: Patient is undergoing hemodialysis. She remains on mechanical ventilation with tidal volume 375, FiO2 down to 45 and PEEP was decreased to 15. Patient is continued on propofol, fentanyl drips. She is on tube feedings at goal. Patient was taken off insulin drip yesterday and on scale only but blood sugars are running in the 200s, Levemir scheduled at bedtime will be added. Other blood work reveals WBC 13.3, hemoglobin 8.7, platelet count 192. Sodium 137, potassium 3.6, chloride 107, CO2 18, BUN 34 and creatinine 4.21. Repeat chest x-ray is stable. 09/22: She remains in the intensive care on mechanical ventilation with tidal volume 375, FiO2 of 50 and PEEP of 10. Pulse ox is running 96%. She is afebrile, heart rate in the 50s, respiratory rate 36, blood pressure 100/64. Repeat blood work reveals WBC 16.5, hemoglobin 8.9, platelet count 213. Sodium 134, potassium 3.7, chloride 103, CO2 21, BUN 34 and creatinine 3.89. Blood sugars running in the 200s to 324. Levemir increased to 16 units at bedtime and continue NovoLog scale every 6 hours. Patient is on tube feedings at goal. She has a Haley catheter in with a scant amount of dark/brown urine. Fecal management system is in place. Repeat chest x-ray reveals diffuse bilateral airspace infiltrates persist unchanged. Patient is scheduled for hemodialysis tomorrow morning on Friday. 09/23: Patient remains on mechanical ventilation with tidal volume 3.75, FiO2 50 and PEEP of 10. school bus monitor sinus rhythm. She has no urine output. Fecal management system is in place. She is undergoing dialysis at this time with plan for removal of 2-1/2 L. She has been afebrile, heart rate in the 50s, respiratory rate 36, blood pressure 108/76 and pulse ox 89%. WBC 13.6, hemoglobin 9.1, platelet count 194. Sodium 136, potassium 3.0 and was replaced, chloride 106, CO2 21, BUN 49 creatinine 5.31. Blood sugars are running between 182 and this morning 194. Patient was still in the 200s and 300s. Levemir last evening was increased to 16 units. Patient remains on propofol and fentanyl dri ps. Lovenox was increased to 60 mg twice daily. 09/24: PEEP was increased today to 20, tidal volume is at 375 and FiO2 of 50%. Patient has been afebrile. She has been started on levo fed. Repeat chest x- ray reveals bilateral multifocal confluent opacities consistent with Covid 19 or ARDS redemonstrated. Nephrology will plan dialysis for tomorrow for 3 L. Patient remains on propofol fentanyl and Nimbex. WBC 12.5, hemoglobin 9.8, platelet count 161. D-dimer 13.3. Sodium 132, potassium 3.4, chloride 102, CO2 20, BUN 48 and creatinine 4.67. Blood sugars extremely elevated to 96-409. LDH 2217. 09/25: Patient remains in the intensive care unit on mechanical ventilation with tidal volume 375, FiO2 50 and PEEP of 20. Patient is afebrile, heart rate 61, respiratory rate 36, blood pressure 102/56, pulse ox 97%. Repeat blood work reveals WBC 9.3, hemoglobin 8.5 and platelet count 171. Sodium 130, potassium 3.7, chloride 100, CO2 20, BUN 61 creatinine 5.65. Blood sugars have been walt vated up to 455. Levemir increased to 20 units twice daily, NovoLog 5 units every 6 hours and continue NovoLog scale. Patient is scheduled for hemodialysis today. Repeat chest x-ray reveals bilateral multifocal and confluent opacities. Decadron and Lovenox dosing change by pulmonary. Patient is off norepinephrine. 09/26: Patient remains in the intensive care unit on mechanical ventilation with tidal volume 375, FiO2 50 and PEEP of 15. She has been afebrile, heart rate 91, blood pressure 114/68, pulse ox 99%. school bus monitor sinus rhythm. 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 Sodium 134, potassium 3.6, chloride 102, CO2 22, BUN 41 creatinine 4.21. Patient has improved blood sugars this morning running 150s and 160s. Diabetic medications were adjusted yesterday. Patient is awake and alert and interacting. Yesterday, patient had PICC line inserted by interventional radiology. Repeat chest x-ray reveals diffuse airspace infiltrates in both lung ann appear to progress slightly in the interval. 09/27: Patient remains in intensive care unit on mechanical ventilation with improvement of settings with tidal volume 375, FiO2 decreased to 40 and PEEP decreased to 10. Patient is on hemodialysis every other day and plan to remove 3 L today. Patient is more awake and alert. She is slow to respond but is able to follow simple commands. Blood sugars are running between 84 and 123. Repeat blood work reveals WBC 7.1, hemoglobin 8.1, platelets 152. Sodium 135, potassium 3.6, chloride 103, CO2 21, BUN 53 and creatinine 5.88. Repeat chest x -ray revealed cardiomegaly and pulmonary edema. Patient is on tube feedings:. Patient is not require vasopressors and is off sedation. Fecal management system remains in place for brown liquid stool. C. difficile was negative. 09/28: Patient remains on mechanical ventilation with tidal volume 375, FiO2 increased to 80 and PEEP increased to 18. Patient had a rough night was very anxious, no pain. Xanax 0.25 mg 3 times daily was added. There is concern for pulmonary embolism for which patient was started on heparin drip, she is unable to undergo CAT scan. Venous Doppler bilateral lower extremities was nondiagnostic due to extensive edema in obese patient but minimal imaging of the popliteal veins does show flow. Repeat echocardiogram has been ordered. Cefepime has also been ordered at 1 g IV piggyback every 24 hours as well as vancomycin, pharmacy dosing. Patient is back on fentanyl drip, propofol drip and norepinephrine. Blood sugars are elevated and insulin Levemir will be increased to 25 mg twice daily. Ferrlecit infusion has been ordered by nephrology for 4 days. Patient is undergoing hemodialysis today.temperature max 100.2, heart rate 134, respiratory rate 34, blood pressure 120/65, pulse ox 94%. school bus monitor is sinus tachycardia. Repeat blood work reveals WBC 16.9, hemoglobin 9.7, platelet count 216. D-dimer 8.81. Sodium 134, potassium 3.8, chloride 99, CO2 25, BUN 43 and creatinine 5.36. Blood sugars in the 200s. AST 40. 09/29 Patient had declined more last 48 hours require more sedation, patient is doing hemodialysis, respiratory failure is quite bit worse this time. Patient was inquired the pain is well back on fentanyl drip. Her vent set up with PEEP is limited but higher. No new finding on culture and her chest x-ray continues shows diffuse infiltrate persistent although there is a moderate interval improvement. 09/30 patient's was seen and evaluated. PEEP was reduced to 11 as patient is maintaining good saturation at the current vent settings. 10/01 patient was seen at bedside. She is currently on assist control rate of 28 white tidal volume 350 FiO2 50% and PEEP of 10 which has been reduced by pulmonary as patient name cleaning her oxygen saturation. Arm blood gas was obtained with a pH of 7.35 pCO2 37 pO2 of 63. She remains hemodynamically stable with no need for pressors. Labs were reviewed patient's BUN is 29 cre atinine 3.93 glucose 122 albumin 2.2 sodium 131 chloride 19 hemoglobin is downtrending with a Hb of 7.3 no leukocytosis 7.1. Patient's urine output is minimal at this time. Her rate has increased to 129 and is currently on positive fluid balance even with dialysis. Last dialysis was done yesterday. Continue enteral feeding currently at goal. Antibiotic has been discontinued and continues to remain on DEXA methicillin 4 mg IV daily. 10/02 patient continues to be on trach support with mechanical ventilation. Patient was evaluated by trackless trolley driver and was switched to VC control as patient was noted to be double stacking on and off throughout the night. Respiratory rate continue to 28 tidal volume increased to 400 with a PEEP for Dr. Downey. Patient is maintaining oxygen saturation 91% on the current setting. According to the nurse bedside patient saturation drops significantly or she is moved or her sedation is dropped. Patient is currently on propofol drip, fentanyl drip. She did underwent dialysis today and was able to maintain her low pressure without the need of pressors. Labs reviewed today suggest a WBC of 6.7 hemoglobin of 7.0 and d-dimer 3.9 bicarb 17 BUN 38 creatinine 4.8. LDH is 964. Sodium 1:30 likely secondary to volume overload. Urine sodium and urine osmolality ordered. Patient's glucose this morning is 146. Continue to remain on enteral feeding. Urine output is reduced. Fall catheter will be placed today. Continue to remain on dialysis. 10/03: Patient remains on mechanical ventilation and is back on propofol and fentanyl drips. Patient is currently on VC control with tidal volume 400, FiO2 55 and PEEP of 12. Patient still is not making any urine and is dialysis dependent with next treatment planned for tomorrow with removal of 3-3-1/2 L. PEG tube feedings are at goal. Fecal management system remains in place. At the time of evaluation, patient is off levophed. Repeat chest x-ray reveals stable diffuse bilateral airspace disease correlate for ARDS, pulmonary edema or diffuse pneumonia. Temperature max last evening was 101. Temperature currently 99, heart rate 106, respiratory rate 32, blood pressure 101/50, pulse ox 86%. Repeat blood work reveals WBC 6, hemoglobin 7.4, platelet count 160. D-dimer 4.05. Sodium 133, potassium 3.5, chloride 100, CO2 23, BUN 31 creatinine 3.8. Blood sugars are running between 100 and 170. Ferritin 1514. Liver function test normal. LDH 1016, C-reactive protein 13.6. Prognosis remains guarded. 10/04: Patient remains intubated on mechanical ventilation with tidal volume 400, FiO2 65, PEEP of 14. Patient continues to run fevers and repeat blood culture and urine and urine culture ordered for today. Haley catheter has been removed this patient has no significant urine output at about 20 mL per shift. BladderScan is monitored for greater than 300 and the patient is straight cathed. Hemoglobin is 6.8 and she has been ordered 41 unit of packed RBCs today. She is currently on propofol and fentanyl drips. She is scheduled for hemodialysis today. WBC 4.5, hemoglobin 6.8, platelet count 151. D-dimer 3.28. Sodium 132, potassium 4.1, chloride 100, CO2 22, BUN 37 creatinine 4.74. Blood sugars running between 97 and 110. Ferritin 1801. LDH 859. C-reactive protein 14.4. Chest x-ray reveals correlate for pneumonia, edema, ARDS. Prognosis remains guarded. 10/05: Patient remains in intensive care unit currently on mechanical ventilation with tidal volume 400, FiO2 was increased to 100 and PEEP is at 14. She continues to run fevers which have worsened with temperature max 103.1. She has been tachycardic in the 130s, blood pressure is marginal but not on vasopressors. Pulse ox currently 92%. Repeat blood work reveals WBC 5.5, hemoglobin 7.6, platelet count 190. D-dimer 2.7, ferritin 1770, LDH 932, C- reactive protein 21.4. Blood sugars are running between 100 1669. Electrolytes are normal. BUN 27 and creatinine 3.79. Pancultures were done yesterday including a straight cath for urine culture, sputum culture and blood culture. Arterial line was removed as well as midline. She is currently on propofol, fe ntanyl and started on Nimbex today. 10/06: Patient remains in the intensive care unit. Today patient in prone position and remains on mechanical ventilation with tidal volume 350, FiO2 65 and PEEP of 14. Her last documented fever was yesterday at 2 PM. Heart rate is in the 120s, respiratory rate 32, pulse ox 88-92%. CBC is unremarkable. Electrolytes are normal. BUN 30 creatinine 2.93. Blood sugars are running between 135 and 164. Cultures from October 04: Blood culture no growth, sputum culture finalized, urine culture finalized. Catheter tip culture is in process. Repeat chest x-ray shows bilateral interstitial infiltrates. Patient is on tube feedings of Nepro at goal of 30 ML's per hour. Patient underwent dialysis yesterday and is scheduled for repeat dialysis today. 10/07: Patient maintains in the intensive care unit intubated and on mechanical ventilation. She is receiving hemodialysis this morning has been every day. Plan is to remove 2-1/2 L today. Vent settings have changed today with tidal volume 350, FiO2 was increased to 100% and PEEP remains at 14. She has been continued on Nimbex, fentanyl, norepinephrine and propofol. Plan is to prone position patient following dialysis. Repeat chest x-ray reveals worsening interstitial infiltrates. BUN is 26 and creatinine 2.59. LDH 955, C-reactive protein 22.1. Prognosis remains poor. 10/08: Patient remains in intensive care unit intubated and on mechanical ventilation with tidal volume 350, FiO2 60, PEEP of 14. She is pronating today. She is scheduled for hemodialysis on a daily basis. She has been afebrile, heart rate 112, respiratory rate 36, blood pressure 161/88, pulse ox 93%. Repeat blood work reveals WBC 9.9, hemoglobin 9.1, platelet count 320. Sodium 133, potassium 5.3, chloride 100, CO2 20, BUN 29 creatinine 2.44. Blood sugar running between 102 and 139. LDH 1026, C-reactive protein 19.7. 10/09: Patient is undergoing dialysis this morning. She continues to be intubated and on mechanical ventilation with tidal volume 350, 270 and PEEP of 14. Patient is also on propofol, Nimbex, norepinephrine and fentanyl drips. Repeat chest x-ray reveals persistent bilateral multifocal and confluent opacities consistent with Covid 19. She is afebrile, heart rate 116, respiratory rate 36, blood pressure 120/65, pulse ox 91%. Repeat blood work reveals WBC 5.4, hemoglobin 9.2, platelet count 216. D-dimer 2.67, ferritin 2568, LDH 794, C- reactive protein 13.9. Blood sugars have been running 90-104. Creatinine 1.64. She is on daily dialysis treatment. 10/10: She remains in the intensive care unit. She is now out of isolation as a repeat Covid test came back negative. She remains on mechanical ventilation with tidal volume 350, FiO2 70 and PEEP of 14. Patient is also on Nimbex, propofol, norepinephrine, fentanyl drips. She is on PEG tube feedings at goal and tolerating well. Repeat blood work reveals WBC 7.8, hemoglobin 7.5, platelet count 267. Sodium 139, potassium 3.9, chloride 109, CO2 20, BUN 20 creatinine 1.29. Blood sugars are running between 76 and 102. Scheduled Nov oLog decreased to 3 units. Repeat chest x-ray reveals moderate cardiomegaly and continued pulmonary edema. Slight interval improvement. Patient is continued on daily hemodialysis. 10/11: Patient remains in intensive care unit on mechanical ventilation with tidal volume 325, FiO2 70, PEEP 14. She is currently being prone. She underwent hemodialysis this morning with removal of 4 L of fluid with plan to continue daily treatment. She is currently on Nimbex, fentanyl and propofol. No vasopressor at this time. Fecal management system remains in place. She is on tube feedings currently at hold due to prone positioning. Patient has been afebrile, heart rate 116, respiratory rate 36, blood pressure 100/58, pulse ox 93-96%. Repeat blood work reveals WBC 9.3, hemoglobin 8.1, platelet count 276. Sodium 136, potassium 4.3, chloride 103, CO2 20, BUN 20 creatinine 1.14. Blood sugars running between 133 and 202. 10/12: Patient remains in the intensive care unit. She is undergoing hemodial ysis this morning. She's been afebrile, heart rate in the 120s, respiratory rate 32, blood pressure 102/65. She is not on vasopressors. She is continued on Nimbex, fentanyl and propofol. Vent settings are currently tidal volume 325, FiO2 70, PEEP 14. Total platelet count 273. Sodium 133, potassium 4.7, chloride 100, CO2 19, BUN 21 creatinine 0.91. Blood sugars running between 121 and 143. 10/13: Patient remain in the ICU she is on hemodialysis daily, she is still on the vent with a PEEP of 14 and FiO2 of 70. Her oxygenation is marginal pulse rate still high. Patient had scratched cornea was seen in ophthalmology decided to keep doing eyedrops along with eye patch at this point. Prognosis still very bad this point. 10/14: She remains on mechanical ventilation with tidal volume 325, FiO2 70% and PEEP of 14. She did require label fed last evening for about 6 hours. She did not tolerate pronating yesterday. She is undergoing dialysis this morning with plan for removal of 4 L. Blood sugars have been low and IV fluids changed to D10 until blood sugars have recovered. Levemir and scheduled NovoLog discontinued. Patient is on tube feedings at goal there's been no change in t his. 10/15 patient remains on mechanical ventilation in the intensive care unit. FiO2 still at 70%, PEEP of 18. Blood sugars have improved since medications were adjusted. White blood cells 33.9, hemoglobin 8.5, sodium 135, BUN 19, creatinine 0.96. Patient to receive dialysis again today. Patient did run a low-grade fever throughout the night and pro calcitonin level is ordered. Chest x-ray showed continued diffuse bilateral airspace disease. Patient remains on tube feedings at goal. 10/16: Patient remains on mechanical ventilation with tidal volume 300, FiO2 70, PEEP of 15. Fecal management system is out. She is currently on low dose of norepinephrine. She is also on fentanyl drip, propofol drip, rocuronium drip. Heart rate is running in the 130s, sinus rhythm, blood pressure 121/63, pulse ox 95%. Patient is been afebrile. Repeat blood work reveals WBC 18.9, hemoglobin 7.5, platelet count 291. Sodium 135, potassium 4.2, chloride 101, CO2 19, BUN 25 and creatinine 1.36. Blood sugars are running between 143 and 199. Patient is on scale insulin only. Repeat chest x-ray reveals persistent bilateral multifocal and completed opacities consistent with Covid 19. 10/17: Patient remains on mechanical ventilation with tidal volume 300, FiO2 50, PEEP of 14. She is currently receiving hemodialysis. The patient is having yellow-colored drainage from the trach site. This is going to be culture today. Repeat blood work reveals WBC of 24, hemoglobin 7.3 and platelet count 310. Sodium 136, potassium 4.1, chloride 101, CO2 19, BUN 24 creatinine 1.43. Blood sugar 139. Capillary blood glucose running 147 and 189. Repeat chest x-ray is unchanged. Patient had increased respiratory rate 40s and 50s with oxygen saturation of 87 and now was increased and Seroquel added this morning. Prognosis remains guarded. 10/18: Patient remains on mechanical ventilation with tidal volume 300, FiO2 60, PEEP has been decreased to 12. Patient will need a PEEP of 8 in order to tr ansfer to long-term care. She is currently on fentanyl drip and Precedex drip. Patient is tracking when her name is stated. She seems to be slightly improved today. Patient has been afebrile, heart rate 106, respiratory rate 32, blood pressure 110/61, pulse ox 98%. Repeat blood work reveals WBC 30.3, hemoglobin 7.2, platelet count 350. Sodium 139, potassium 4.2, chloride 103, CO2 20, BUN 23 creatinine 1.79. Blood sugars are increasing running up 299. Patient will be placed on Levemir. Secretions from tracheotomy sent for culture and in process. She is currently undergoing hemodialysis. 10/23: Patient remains in the intensive care unit on mechanical ventilation with tidal volume 300, FiO2 65 and PEEP of 10. school bus monitor has been in a sinus rhythm. Patient does open her eyes and appears to be tracking. Blood sugars have been elevated. Levemir will be increased to 40 units daily and scheduled NovoLog increased to 12 units and continue NovoLog every 6 hours per scale. Dariana woodward is receiving hemodialysis today. She is not currently on vasopressors. Patient is on Precedex drip only. Antibiotics in the form of cefepime were started on October 18. Patient has been afebrile, heart rate 126, respiratory rate 36, blood pressure 163/105. Pulse ox 91%. Repeat blood work reveals WBC 16.0, hemoglobin 7.2, platelet count 208. Electrolytes are within normal limits. BUN 62 and creatinine 2.43. Blood sugars running between 259-321. Most recent blood culture from [facility] 20 is no growth at 24 hours. Repeat chest x-ray reveals cardiomegaly and persistent bilateral pulmonary edema. 10/24: Patient is awake, eyes are open and tracking, she is able to follow simple commands. Severe generalized weakness noted. Precedex gtt has been discontinued. Patient is receiving hemodialysis. Her blood sugars have remained elevated for which Levemir increased to 25 units twice daily along with 15 units of NovoLog every 6 hours along with scale. Tidal volume 330, FiO2 60, PEEP of 8. assurance sourcing manager and director of social services following closely. Anticipate possible discharge by the end of next week to long-term care facility. 10/25: Patient remains in the intensive care unit on mechanical ventilation. Tidal volume 350, FiO2 60, PEEP 8. She is receiving hemodialysis this morning. Her heart rate remains elevated in the 130s. Pulmonary as started her on Cardizem at 60 mg 3 times daily which has not had any improved effect. We'll start the patient on Lopressor 25 mg twice daily. Patient has been afebrile, heart rate respiratory rate 32, blood pressure 151/91, pulse ox 98%. Patient is been transfuse 1 unit of packed RBCs today. Patient's mental status is improving and patient is able to follow simple commands. WBC 12.2, hemoglobin 6.3, platelet count 196. Sodium 135 otherwise looked lites are normal, BUN 48 creatinine 1.99. Blood sugars are running between 120 and 172. Levemir has been increased to 30 mg twice daily continue 15 units of NovoLog every 6 hours with scale. 10/26: Patient remains in intensive care unit, on mechanical ventilation with tidal volume 375, FiO2 50, PEEP of 8. Patient's heart rate remains elevated 120s and Lopressor increased to 50 mg twice daily. Patient seems to be quite anxious and depressed. We will decrease Seroquel to 50 mg twice daily and start patient on Lexapro. Patient received her first dose of Xanax this morning but this did not seem to help heart rate either. She has been afebrile, heart rate 128, blood pressure 149/79, pulse ox 93%. Repeat hemoglobin 7.3. Sodium 135, potassium 3.9, chloride 90, CO2 30, BUN 45 and creatinine 1.94. Blood sugar are improved running between 117-194. We will make further adjustments to insulin and to increase long-acting to 35 units twice daily and decrease NovoLog scheduled to 7 units and continue NovoLog scale. There are problems with patient's trach and consequently placed with [facility]. General surgery to reevaluate trach. 10/27: Patient is complaining of nausea today. Concerned that this is related to Lexapro. We will further decrease Seroquel to 50 mg at bedtime. Patient is being bladder scanned and last bladder scan wasn't 125 mL. She does not have Fo alexander catheter. No fecal management system. She is having a bowel movement about 3 per day. Plan is for CPAP trial today. She is currently on mechanical ventilation with tidal volume 375, FiO2 50 and PEEP of 8. She has been afebrile, heart rate 105 which is much improved from the last few days. Blood pressure 145/88, pulse ox 94%. There is a new consult in place for Dr. Clemente regarding exchanging the trach and possible debridement at site. WBC 11.4, hemoglobin 8.2, blood count 218. Sodium 136, potassium 4.1, chloride 97, CO2 31, BUN 47 creatinine 1.97. Blood sugars running between 129 and 204. We have changed long acting insulin to 35 units twice daily and continue NovoLog 7 units every 6 hours and scale every 6 hours. Nephrology may be decreasing frequency of dialysis treatments. Anticipate probable discharge to long-term care next week. 10/28: Patient was complaining of nausea today which has resolved. CPAP trial will continue today. She is currently on mechanical ventilation with a tidal volume 375, FiO2 of 50, PEEP of 8. She is afebrile, heart rate 108 which continues to show improvement. Blood pressure 133/87, pulse ox 99%. Patient is able to follow commands. And answers appropriately with nodding her head. WBC 10.5, hemoglobin 8.0, potassium 4.6, BUN 46, creatinine 1.96. Patient is currently receiving hemodialysis. 10/29: Patient was found sitting up in bed. Able to answer some questions appropriately. Utilizing kim. Able to follow commands. [place] over elevated blood sugars. Levemir 35 units twice a day will continue at this with a 7 unit coverage. Patient remains afebrile. Heart rate 102, respirations 29, blood pressure 124/74, pulse ox 97% on mechanical ventilation. Mechanical ventilation settings with a tidal volume 375, FiO2 of 50 and a PEEP of 8. Family has been into see patient. Hemodialysis will be held today. 10/30: Patient remains in the ICU on mechanical ventilation. She is not requiring pressure support. She is on CPAP support. She is receiving hemodialysis this morning with plan to start a Friday schedule this week. Blood sugars are stable and running between 140 and 184. She is on tube feedings at goal and having bowel movements every 12 hours. Repeat blood work reveals WBC 8.9, hemoglobin 10.2, platelet count 258. Sodium 133, potassium 5.0, chloride 97, CO2 23, BUN 69 creatinine 2.67. 10/31: Patient is seen today in intensive care unit. She remains on mechanical ventilation with tidal volume 375, FiO2 45 of PEEP of 5. Patient is found sitting in a chair working with physical therapy. Patient is noted to have left arm weakness without pain and good sensation. She is not receiving dialysis today and will be started on Friday regime. Patient's heart rate is better controlled in the 80s, blood pressure 113/65, pulse ox 99%. Patient is been afebrile. Patient has been on cefepime. Repeat blood work reveals WBC 9.3, hemoglobin 6.9 and patient is transfused 1 unit of packed RBCs today. Platelet count 248. Electrolytes are within normal range, BUN 38 and creatinine 2.04. Her blood glucose running between 130 and 193. AST 38. Social work is working with the daughter regarding discharge planning. 11/01: A she was undergoing dialysis with plan for 3 L removed today and dialysis is scheduled Friday. She is in bed and appears to be comfortable. She is able to talk and express herself and is cognitively intact. She remains on mechanical ventilation. She has been afebrile, heart rate 107, blood pressure 115/85, pulse ox 99%. Repeat blood work reveals WBC 8.5, hemoglobin 7.5, platelet count 278. Sodium 136, potassium 4.8, chloride 100, CO2 27, BUN 55 creatinine 2.81. Blood sugar running between 114 and 185. C alcium 10.3, total bilirubin 0.2, AST 34, ALT 34, alkaline phosphatase 144. Social work is working on discharge planning which will be to [facility], [facility] or [facility]. 11/02: Patient remains in the intensive care unit on mechanical ventilation with t idal volume 375, FiO2 40, PEEP of 5. Patient's mental status continues to be improved. She has been afebrile, heart rate 97, blood pressure 144/86, pulse ox 98%. Repeat blood work reveals WBC 8.3, hemoglobin 7.2, platelet count 255. Sodium 135, potassium 4.5, chloride 98, CO2 20, BUN 42 and creatinine 2.36. Blood sugars are running between 124 278. She is scheduled for hemodialysis tomorrow with plan for 4 L to be removed. Social work is working on discharge plan and once patient has been accepted and insurance authorization is obtained if needed, patient will be discharged. 11/03: Patient remains in intensive care unit on mechanical ventilation patient is currently on pressure support of 15, CPAP of 5 and FiO2 of 40%. A trach collar is to be attempted today in order to get the patient discharged to [facility] care facility. Land is for medical [place] on Friday if patient continues to improve. He has been afebrile, heart rate in the 80s, blood pressure 90/57, pulse ox 100%. Repeat blood work reveals WBC 7.5, hemoglobin 6.9, platelet count 255. Sodium 133, potassium 5.1, chloride 97, CO2 27, BUN 59 creatinine 3. Blood sugars up and running 117 164. 11/04 patient remains in ICU, this is day number 55, pulmonary is following closely, they have recommended fenestrated trach, for which Dr. warren is going to perform, patient is anticipated to be discharged to long-term care facility, most likely early next week. She is stable, with no new fevers, antibiotics has been completed, blood sugars are stable, hemoglobin 7.7, WBC 8.5, blood sugars running between 145-150, creatinine of 2.34 11/05: Patient remains in ICU, trach collar replaced by Dr. Zhang this a.m., patient's communicating with handwritten communication mentions that she has back pain, on IV Dilaudid still, we'll replace [place] 7.5, also cannot sleep, muscle relaxants started with cyclobenzaprine, where finalizing discharge planning, to subacute rehab long-term care no fever no chills, coughing a lot, with mucus production, suctioning on the trach when necessary by nursing staff, 11/06: Patient is still having refractory sleep, wakes up with chills and sweats, also. Alternating hot and cold, iron is suspected to be low, hemoglobin of 7.2, check for iron studies, on Ativan and aspirin, start melatonin 6 mg at bedtime, might need Zestril, however is on Seroquel. We'll going to increase Seroquel to 75 mg blood sugars are stable, no change in program today, pain control is better, using [place] 7.5 REVIEW OF SYSTEMS Constitutional: No fever, no chills, no night sweats. No weight change. Profound weakness, + significant fatigue no lethargy. Reported daytime sleepiness. EENT: No headache. No loss of vision. No loss of Hearing. No nasal drainage o r congestion. No epistaxis. No sore throat. Lungs: No shortness of breath, cough, no sputum production. No wheezing. Cardiovascular: No chest pain, no lower extremity edema. No palpitations. No p aroxysmal nocturnal dyspnea. No orthopnea. No lightheadedness or dizziness. No syncopal episodes. Abdominal: No abdominal pain. No nausea, vomiting. No diarrhea. No constipation. No bloody or tarry stools. loss of appetite- peg tube. Genitourinary: No dysuria, increased frequency, urgency. No urinary retention. Minimal urine production Musculoskeletal: No myalgias. Noted muscle weakness, noted gait dysfunction, no frequent falls. No back pain. No neck pain. Integumentary: Positive wound-decubitus ulcer, trach wound. No rash or pruritus. No unusual bruising. No change in hair or nails. Neurologic: No aphasia. No facial droop. Noted change in mentation-improved. No head injury. No headache. No paralysis. No paresthesia. Psychiatric: suspected depression. positive anxiety. Endocrine: Noted abnormal blood sugars-stable and monitored. Objective - Vital Signs Vital signs: Vital Signs Temp 98.2 F 11/06/20 13:15 Pulse 112 H 11/06/20 14:00 Resp 20 11/06/20 14:00 BP 136/68 11/06/20 14:00 Pulse Ox 89 L 11/06/20 14:00 Intake & Output 11/05/20 11/06/20 11/06/20 18:59 06:59 18:59 Intake Total 888 548 372 Output Total 0 0 1300 Balance 888 548 -928 Weight 87.6 kg 87.6 kg Intake: IV 250 50 Cefepime 1 gm In Sodium 250 50 Chloride 0.9% 50 ml @ 12. 5 mls/hr IVPB Q24H [facility] Rx #:[id number] Oral 100 Tube Feeding 408 408 272 Other 230 90 Output: Urine 0 0 0 Hemodialysis 1300 ABP, PAP, CO, CI - Last Documented Arterial Blood Pressure 136/76 - Constitutional General appearance: Present: cooperative, no acute distress - EENT Eyes: Present: EOMI, PERRLA, dentition normal ENT: Present: NA/AT - Neck Neck: Present: normal ROM - Respiratory Respiratory: bilateral: CTA, diminished, negative: dullness, rales, rhonchi - Cardiovascular Rhythm: regular Heart sounds: normal: S1, S2 Abnormal Heart Sounds: Absent: systolic murmur, diastolic murmur, rub, S3 Gallop, S4 Gallop, click, other - Gastrointestinal General gastrointestinal: Present: normal bowel sounds, soft - Integumentary Integumentary: Present: decreased turgor, normal - Neurologic Neurologic: Present: CNII-XII intact - Musculoskeletal Musculoskeletal: Present: generalized weakness, strength equal bilaterally - Psychiatric Psychiatric: Present: A&O x's 3, appropriate affect - Labs CBC & Chem 7: 11/04/20 04:37 11/04/20 04:37 Labs: Abnormal Lab Results - Last 24 Hours (Table) 11/05/20 11/05/20 11/06/20 Range/Units 17:51 23:46 06:09 POC Glucose (mg/dL) 130 H 132 H 137 H (75-99) mg/dL 11/06/20 Range/Units 11:16 POC Glucose (mg/dL) 103 H (75-99) mg/dL Assessment and Plan Plan: ASSESSMENT AND PLAN 1. Acute hypoxic respiratory failure secondary to Covid 19 pneumonia and possible bacterial pneumonia. Plan for fenestrated trach collar prior to transfer to subacute rehab long-term stay Patient was intubated on September 11. She is status post 1 dose of Remdesivir and 1 dose of Tocilizumab. Continue Ventolin inhaler 4 times daily, Lovenox 30 mg subcu daily, supplements. Status post PEG tube and trach. Completed cefepime for a Citrobacter pneumonia. 2. Acute diabetic ketoacidosis secondary to Covid 19 pneumonia, controlled with hyperglycemia. Levemir 35 units twice daily and scheduled NovoLog increased to 7 units every 6 hours and continue NovoLog scale every 6 hours. 3. Metabolic encephalopathy secondary to Covid 19 and DKA. 4. Sepsis and septic shock secondary to Covid 19 pneumonia with multiorgan failure. Continue as in #1. Trach drainage cultured. General surgery on consult. 5. Acute metabolic acidosis secondary to acute DKA, Covid 19 and acute kidney injury. Renvela 1600 mg q6h. 6. Diabetes mellitus type 2 uncontrolled with A1c 13.6. Continue as above. 7. Hypophosphatemia status post replacement. 8. Hyperkalemia secondary to DKA, resolved. 9. Sinus tachycardia secondary to sepsis, volume deficiency. Patient is on Cardizem 60 mg 3 times daily, and Lopressor 50 mg twice daily. 10. Acute kidney injury secondary to ATN secondary to Covid 19 and DKA. Continue hemodialysis on Friday. 11. Citrobacter gram-negative pneumonia versus MRSA pneumonia. Completed course of antibiotics. 12. Hypertension. 13. Morbid obesity with BMI of 53. 14. Situational depression and anxiety. Seroquel decreased to 50 mg at bedtime, continue Lexapro 10 mg daily and Xanax 0.25 mg twice daily as needed. 15. DVT prophylaxis. Lovenox. 16. GI prophylaxis. Protonix 40 mg IV push daily. 17. Stage IV pressure ulcer to trach site. Currently utilizing absorptive silver dressing. 18. Stage II decubitus ulcer to coccyx. 19. Critical illness polyneuropathy and myopathy. Continue physical therapy. 20. Anemia of chronic disease. Status post Transfusiob of packed RBCs, continue Aranesp 40 g every 7 days. CODE STATUS: Full code Prognosis guarded. DISCHARGE PLAN [facility] on Friday.
--- NOTE | 2020-11-06 16:49 | XR ---
EXAMINATION TYPE: XR chest 1V portable DATE OF EXAM: 11/06/2020 Comparison: 11/04/2020 Clinical History: 35-year-old female cough chills pneumonia Findings: Tracheostomy cannula. Right-sided double-lumen hemodialysis catheter with tips at the cavoatrial junc tion. Right PICC tip seen to the region of the brachiocephalic vein confluence. Patient is rotated to wards the right altering the normal cardiac mediastinal contours. Heart is mildly enlarged. Interstitial opacities persist with a some shifting opacities, slight impro vement right base and slight worsening at the left base. Impression: Continued interstitial infiltrates and patchy bibasilar opacities. Underlying pneumonia and/or inters titial pulmonary edema are considerations.
[2020-11-06 17:12] LABS: Glucose,Whole Blood 129 mg/dL (75-99)
[2020-11-06] MEDS: CYCLOBENZAPRINE 10 MG TAB PO SCH (20:46)
[2020-11-06] MEDS: QUEtiapine 25 MG TAB PO SCH (20:46)
[2020-11-07 00:01] LABS: Glucose,Whole Blood 117 mg/dL (75-99)
[2020-11-07] MEDS: INSULIN ASPART (NovoLOG) 100 UNIT/ML VIAL SQ SCH ×10 (00:01→23:56)
[2020-11-07] MEDS: NYSTATIN 100,000 UNIT/ML SUSP 500,000 UNIT/5 ML CUP PO SCH ×4 (00:03→18:16)
[2020-11-07] MEDS: SEVELAMER 800 MG TAB PO SCH ×4 (00:09→19:11)
[2020-11-07] MEDS: diphenhydrAMINE 50 MG/ML 1 ML VIAL IVP PRN ×3 (03:23→19:12)
[2020-11-07 03:28] LABS: Anisocytosis Slight; Basophils % (A) 0 %; Eosinophils # (A) 0.8 k/uL (0-0.7); Eosinophils % (A) 10 %; Hypochromasia Moderate; Lymphocytes # (A) 0.7 k/uL (1.0-4.8); Lymphocytes % (A) 9 %; MCH 27.7 pg (25.0-35.0); MCV 86.7 fL (80.0-100.0); Mean Platelet Volume 8.1; Monocytes # (A) 0.5 k/uL (0-1.0); Monocytes % (A) 6 %; Neutrophils # (A) 5.8 k/uL (1.3-7.7); Neutrophils % (A) 73 %; Platelet Count 238 k/uL (150-450); Poikilocytosis Slight; RBC 2.88 m/uL (3.80-5.40); RDW 16.9 % (11.5-15.5); WBC 7.9 k/uL (3.8-10.6)
[2020-11-07 03:42] LABS: Calcium 10.2 mg/dL (8.4-10.2); Potassium 3.9 mmol/L (3.5-5.1); Total Bilirubin 0.1 mg/dL (0.2-1.3); Total Protein 5.6 g/dL (6.3-8.2)
[2020-11-07] MEDS: HYDROcodone/APAP 7.5-325MG 1 EACH TAB PO PRN ×3 (03:56→21:02)
[2020-11-07 06:10] LABS: Glucose,Whole Blood 101 mg/dL (75-99)
[2020-11-07] MEDS: INSULIN DETEMIR (LEVEMIR) 100 UNIT/ML SYR SQ SCH ×2 (06:13→22:48)
[2020-11-07] MEDS: CHLORHEXIDINE GLUCONATE 15 ML CUP MUCOUS MEM SCH ×2 (08:01→22:07)
[2020-11-07] MEDS: CHOLECALCIFEROL 25 MCG (1000 IU) TABLET PO SCH (08:01)
[2020-11-07] MEDS: METOPROLOL TARTRATE 50 MG TAB PO SCH ×2 (08:01→22:07)
[2020-11-07] MEDS: ASCORBIC ACID 500 MG TAB PO SCH ×2 (08:01→22:07)
[2020-11-07] MEDS: ENOXAPARIN 30 MG/0.3 ML SYRINGE SQ SCH (08:02)
[2020-11-07] MEDS: ESCITALOPRAM 10 MG TAB PO SCH (08:02)
[2020-11-07] MEDS: PANTOPRAZOLE 40 MG/10 ML VIAL IVP SCH ×2 (08:02→22:06)
[2020-11-07] MEDS: NYSTATIN 100,000 UNIT/GM POWD 15 GM TOPICAL SCH ×3 (08:02→22:06)
[2020-11-07] MEDS: HYDROPHILIC CREAM 180 GM TUBE TOPICAL SCH (08:02)
[2020-11-07] MEDS: DILTIAZEM ORAL 60 MG TAB PO SCH ×3 (08:02→22:07)
[2020-11-07] MEDS: ALBUTEROL HFA INHALER INHALATION SCH ×4 (08:08→20:55)
--- NOTE | 2020-11-07 09:26 | P.PN ---
Subjective Patient is seen in follow-up for acute kidney injury. Oliguric. Status post tracheostomy and PEG tube placement this admission. Receiving tube feeding. Off vent. No changes overnight. Vital signs: Stable. General: The patient appeared well nourished and normally developed. HEENT: Tracheostomy noted. LUNGS: Breath sounds decreased. HEART: Regular rate and rhythm. Abdomen: Soft, no distention. EXTREMITITES: Trace edema. Objective - Vital Signs Vital signs: Vital Signs Temp 98.7 F 11/07/20 04:00 Pulse 110 H 11/07/20 07:00 Resp 19 11/07/20 07:00 BP 115/71 11/07/20 07:00 Pulse Ox 95 11/07/20 07:00 Intake & Output 11/06/20 11/07/20 11/07/20 18:59 06:59 18:59 Intake Total 638 498 34 Output Total 1300 0 0 Balance -662 498 34 Weight 87.6 kg 95.3 kg Intake: Oral 200 Tube Feeding 408 408 34 Other 30 90 Output: Urine 0 0 0 Hemodialysis 1300 Other: Voiding Method External Catheter # Voids 1 ABP, PAP, CO, CI - Last Documented Arterial Blood Pressure 136/76 - Labs CBC & Chem 7: 11/07/20 03:12 11/07/20 03:12 Labs: Abnormal Lab Results - Last 24 Hours (Table) 11/06/20 11/06/20 11/07/20 Range/Units 11:16 17:10 00:00 RBC (3.80-5.40) m/uL Hgb (11.4-16.0) gm/dL Hct (34.0-46.0) % RDW (11.5-15.5) % Lymphocytes # (1.0-4.8) k/uL Eosinophils # (0-0.7) k/uL Sodium (137-145) mmol/L Chloride (98-107) mmol/L BUN (7-17) mg/dL Creatinine (0.52-1.04) mg/dL POC Glucose (mg/dL) 103 H 129 H 117 H (75-99) mg/dL Total Bilirubin (0.2-1.3) mg/dL Total Protein (6.3-8.2) g/dL Albumin (3.5-5.0) g/dL 11/07/20 11/07/20 11/07/20 Range/Units 03:12 03:12 06:09 RBC 2.88 L (3.80-5.40) m/uL Hgb 8.0 L (11.4-16.0) gm/dL Hct 25.0 L (34.0-46.0) % RDW 16.9 H (11.5-15.5) % Lymphocytes # 0.7 L (1.0-4.8) k/uL Eosinophils # 0.8 H (0-0.7) k/uL Sodium 130 L (137-145) mmol/L Chloride 93 L (98-107) mmol/L BUN 48 H (7-17) mg/dL Creatinine 2.84 H (0.52-1.04) mg/dL POC Glucose (mg/dL) 101 H (75-99) mg/dL Total Bilirubin 0.1 L (0.2-1.3) mg/dL Total Protein 5.6 L (6.3-8.2) g/dL Albumin 3.0 L (3.5-5.0) g/dL Assessment and Plan Plan: Assessment: 1. Acute kidney injury secondary to ATN secondary to COVID-19 and DKA. Baseline creatinine is near 1. Started on hemodialysis on September 14. Has p-cath. Oliguric. No hydronephrosis noted on kidney ultrasound. 2. DKA s/p insulin drip and IV fluids. 3. Acute hypoxic respiratory failure secondary to COVID-19 pneumonia. Status post tracheostomy this admission. 4. Metabolic acidosis secondary to acute kidney injury and DKA s/p bicarb drip. Improved postdialysis. 5. Hyponatremia, hypervolemic. Stable. 6. Hyperphosphatemia secondary to acute kidney injury. Maintained on Renvela. 7. Anemia of chronic illness and kidney disease. Maintained on Aranesp. Iron deficiency noted - s/p iv iron. Status post blood transfusion this admission. 8. Fluid overload. Improved with ultrafiltration. 9. Hypercalcemia. Patient is on daily vitamin D supplementation. Plan: Hemodialysis tomorrow. Maintain tube feeds. Avoid nephrotoxins. Continue to monitor renal function and urine output. Monitor for renal recovery. Possible discharge to ECF today. Outpatient dialysis has been set up. Stop vitamin D.
[2020-11-07 09:38] LABS: % Iron Saturation 9.02 (12.00-45.00)
--- NOTE | 2020-11-07 10:54 | P.DS ---
Providers Date of admission: 09/10/20 15:27 Expected date of discharge: 11/07/20 Attending physician: Alma Echevarria MD Consults: 09/10/20 15:38 Consult Physician Urgent Consulting Provider: Beatriz See Consult Reason/Comments: COVID pneumonia Do you want consulting provider notified?: Yes 09/12/20 16:30 Consult Physician Routine Consulting Provider: Franck Ortiz Consult Reason/Comments: decreased urine Do you want consulting provider notified?: Yes 09/18/20 08:58 Consult Physician Routine Consulting Provider: Collins Zhang Consult Reason/Comments: trach and peg Do you want consulting provider notified?: Yes 10/12/20 11:08 Consult Physician Routine Consulting Provider: Amanda Lowry Consult Reason/Comments: left eye Do you want consulting provider notified?: Yes 10/27/20 09:21 Consult Physician Urgent Consulting Provider: Jorge Clemente Consult Reason/Comments: trach site evaluation Do you want consulting provider notified?: Yes Primary care physician: [facility] Course: HISTORY OF PRESENT ILLNESS 35-year-old female patient of Dr. Arroyo with past medical history of type 2 diabetes comes in with acute shortness of breath associated with high light sugars. Patient on admission was found to have a fever of 101.5 pulse rate 125 respiratory rate 20. Blood pressure 132/106. On chest x-ray obtained in the ER suggestive of bilateral infiltrates concerning for call with pneumonia. COVID PCR was positive. On admissions patient had an ABG with a pH of 7.14 pCO2 of 20, pO2 of 59, bicarb of 7. Patient's blood sugar on admission was 424 on assessment today patient's blood work patient had a sodium 135 potassium 5.4 chloride 123 bicarb less than 5 and creatinine 0.73. D-dimer was elevated on admission patient 9 28 patient given 1 L of IV fluids followed by normal saline running at 200 mL/h. Patient was positive for acetone on admission. She will anion gap closed and was switched to D5NS. Insulin drip was continued during the night and was switched to patient's home medication this morning. One dose of remdesiver was ordered. Apparently around noon, A- team was called on the patient secondary to hypoxia patient's oxygen saturation dropped to the 70s and 80s on 100% nonrebreather. Patient was switched to BiPAP on 18/12 and is doing better o FiO2 of 80%. ABG was obtained and ph was 7. 14 pCO2 of 28 bicarb of 7 pO2 of 17. Patient noted to have uncompensated metabolic acidosis with compensated respiratory alkalosis. Stat dose of 1 amp bicarb was given and followed by sodium bicarbonate drip. Insulin drip restarted. Patient's initiated on dexamethasone 6 mg IV twice a day. Potassium phosphate ordered as phosphorus is low. Patient's repeat blood gases suggest a pH of 7.25, CO2 32 pO2 of 72 bicarb 14. I will not normal saline at 100 mL/h as patient's anion gap has increased. Patient given 1 dose of 2 mg of morphine with improvement in respiratory rate. One dose of Ativan 0.5 mg was given. Xanax 0.25 twice a day along with Ativan 0.5 IV every 6 hours ordered for the patient. Vitals were evaluated patient pulse 129 [id number]. She was moved to the ICU. Precedex drip was initiated. Lopressor was initiated at 25 twice a day. Metoprolol tartrate 5 mg IV every 6 hours. Systolic blood pressure more than 160. Started chest x-ray was obtained and suggest stable bilateral consolidation suggestive of COVID-19 pneumonia. 09/12 patient is seen in the ICU is currently mechanically ventilated and sedated on vent settings of respiratory rate 36, tidal volume 375 FiO2 80% PEEP of 18.. Vital signs reviewed patient had a temp of 100.4 pulse 150 respiratory rate 36 oxygen saturation 95% on 80% on fio2 .'s labs are reviewed which patient had a d-dimer 1.84 that is increased to 14.3. Arterial Blood gas suggest ph 7.35, CO2 40, po2 62, . Her BMP suggest a sodium 135 potassium 3.7 chloride 112 bicarb 21 creatinine 1.57 for calcitonin is 3.5 CRP is increased from 8.78.2 LDH is increased to 2614. Patient remains on Pneumovax, propofol drip. Lovenox increased to 50 subcu twice a day. Patient received 2 L of IV fluids. Continue IV fluids at 100 mL/h. Bicarb drip discontinued patient initiated on Zosyn 3.375 every 8 hours. Continue insulin drip at 4 units per hour. Patient is currently in prone positioning 09/13: Patient evaluated in the ICU remains on Ventilation continues to be sedated, in prone position. Vent settings are respiratory rate 36, tidal vital 375, FiO2 70% PEEP of 18. ABG shows pO2 of 82, PCO2 of 39, pH is 7.19. Latest labs show WBC 11.1, hemoglobin 13.2, d-dimer still pending, but yesterday was up to 14.3. Creatinine up to 3.4, BUN 24 sodium 137, potassium 4.0. Patient's urine output has been low, nephrology on consult. Bicarb drip increased to 100 miles an hour, receiving another liter of normal saline, she did have a ultrasound that showed unremarkable bilateral kidneys. Repeat chest x-ray showed bilateral lung infiltrates that are stable. Anion gap has closed, will start Lantus 10 units at at bedtime Novolog every 6 hours. 09/14: Patient is seen in the ICU, still currently mechanically ventilated and sedated. She continues in the prone position. Her oxygen quickly drops if she is not in prone. Patient's kidney function has worsened. Laboratory values show creatinine of 4.87, BUN 33, LDH 2191, C-reactive protein 2.7. ABG shows pH 7.32, pO2 of 60, pCO2 43. Patient is making almost no urine overnight. Nephrology is following patient continues on cefepime for urinary tract infection, culture is still pending. Vascular has been consulted for placement of temporary hemodialysis catheter for plans for dialysis. 09/15: Patient evaluated in the ICU, continues to be mechanically ventilated and sedated on assist control ventilation rate of 36, tidal volume 375, FiO2 100% and PEEP of 18. ABG today shows pO2 58, pCO2 of 45, and pH 7.35. She continues on tube feedings. Yesterday patient underwent ultrasound-guided right internal jugular non-tunneled hemodialysis catheter placement. Patient underwent hemodialysis treatment last night and plans have another hemodialysis treatment today. She continues to make almost no urine. She continues on cefepime for antibiotic coverage, and continues on Decadron and Lovenox. 09/16: Patient seen on follow-up remains in the ICU mechanically ventilated and sedated. She continues on assist control rate of 36, tidal volume 375, FiO2 100% and PEEP of 20. PEEP had to be increased due to patient had to be in supine position for dialysis, will go back to prone position once dialysis is complete. ABG shows pH 7.32, pCO2 49, PaO2 61. Laboratory values showed WBC 11.2, hemoglobin 11, sodium 134, creatinine 4.44, BUN 38. Urine culture shows no growth, blood cultures show no growth to date. Repeat chest x-ray shows bilateral pleural effusions, correlate for ARDS, pulmonary edema, diffuse pneumonia, findings are stable from last exam. Patient does not require any pressors, blood pressure 133/57, heart rate 78. 5/16: Patient was evaluated in the ICU today for follow-up. She continues to be intubated and on mechanical ventilation. Current vent settings are tidal volume 375, FiO2 100% and PEEP of 20. ABG shows pH 7.37, pCO2 40, pO2 102. She continues with intermittent prone positioning. Patient continues to have almost no urine output, maintained on dialysis. Patient received dialysis yesterday without complication. Laboratory values revealed WBC 10.3, hemoglobin 10.4, sodium 132, potassium 3.1, BUN 33, creatinine 4.29, LDH 1913, C-reactive protein 1.3. Urine and sputum cultures are negative, blood cultures show no growth to date. Consult placed to dietary to start TPN[ ] 09/18: She remains in the intensive care unit intubated and on mechanical ventilation with tidal volume 375, FiO2 60 and PEEP of 20. Patient is being prone to daily at approximately 16 hours per day. Pulmonary medicine has added in Dr. Zhang to do PEG tube and trach today. Patient is not on vasopressors. Repeat blood work reveals WBC 12.6, hemoglobin 9.8, platelet count 212. Sodium 133, potassium 3.2, chloride 102, CO2 21, BUN 35 and creatinine 4.12. Blood sugar 126. Patient underwent hemodialysis yesterday with removal of 2 L and is scheduled again today with goal of 2-3 L and is scheduled again tomorrow. 09/19: She is scheduled for hemodialysis today and is off fentanyl temporarily. Patient is status post trach and PEG tube yesterday. And she remains on mechanical ventilation. Pulse ox 93-95%. She has been afebrile, heart rate 64, respiratory rate 36, blood pressure 115/50. Fentanyl is off to improve blood pressure for hemodialysis which is scheduled for today. Contacted vascular surgery about permanent hemodialysis catheter. Repeat blood work reveals WBC 14.3, hemoglobin 9.6, platelet count 200. D-dimer 6.48. LDH 1686. C-reactive protein 1.1. BUN 34 creatinine 3.81. Sodium 130, potassium 3.5, chloride 101, CO2 18. Blood sugars running between 101 198. Plan is to wean off Pneumovax today. Patient remains on insulin drip. Repeat chest x-ray reveals bilateral multifocal confluent opacities consistent with COVID-19. Some improved aeration periphery of the left lung and worsening opacities throughout the right lung. 09/20: She remains in the intensive care unit on mechanical ventilation. She has been afebrile, heart rate 65, respiratory rate 37, blood pressure 121/70, pulse ox 91-99%. Repeat blood work reveals WBC 14.5, hemoglobin 9.1, platelet count 216. D-dimer 6.13. Sodium 133, potassium 3.1, chloride 102, CO2 18, BUN 35 and creatinine 4.27. Blood sugars running between 128 and 143. LDH 1717. C- reactive protein 1.7. Patient remains on insulin drip which will be transitioned to NovoLog scale every 6 hours. Patient is scheduled for permanent hemodialysis catheter placement today with vascular surgery. Repeat chest x-ray reveals stable diffuse bilateral interstitial and airspace disease. Possible small right effusion. His work is following for transfer to [facility] care facility. Do not anticipate discharge until next week. 09/21: Patient is undergoing hemodialysis. She remains on mechanical ventilation with tidal volume 375, FiO2 down to 45 and PEEP was decreased to 15. Patient is continued on propofol, fentanyl drips. She is on tube feedings at goal. Patient was taken off insulin drip yesterday and on scale only but blood sugars are running in the 200s, Levemir scheduled at bedtime will be added. Other blood work reveals WBC 13.3, hemoglobin 8.7, platelet count 192. Sodium 137, potassium 3.6, chloride 107, CO2 18, BUN 34 and creatinine 4.21. Repeat chest x-ray is stable. 09/22: She remains in the intensive care on mechanical ventilation with tidal volume 375, FiO2 of 50 and PEEP of 10. Pulse ox is running 96%. She is afebrile, heart rate in the 50s, respiratory rate 36, blood pressure 100/64. Repeat blood work reveals WBC 16.5, hemoglobin 8.9, platelet count 213. Sodium 134, potassium 3.7, chloride 103, CO2 21, BUN 34 and creatinine 3.89. Blood sugars running in the 200s to 324. Levemir increased to 16 units at bedtime and continue NovoLog scale every 6 hours. Patient is on tube feedings at goal. She has a Haley catheter in with a scant amount of dark/brown urine. Fecal management system is in place. Repeat chest x-ray reveals diffuse bilateral airspace infiltrates persist unchanged. Patient is scheduled for hemodialysis tomorrow morning on Friday. 09/23: Patient remains on mechanical ventilation with tidal volume 3.75, FiO2 50 and PEEP of 10. monitoring specialist sinus rhythm. She has no urine output. Fecal management system is in place. She is undergoing dialysis at this time with plan for removal of 2-1/2 L. She has been afebrile, heart rate in the 50s, respiratory rate 36, blood pressure 108/76 and pulse ox 89%. WBC 13.6, hemoglobin 9.1, platelet count 194. Sodium 136, potassium 3.0 and was replaced, chloride 106, CO2 21, BUN 49 creatinine 5.31. Blood sugars are running between 182 and this morning 194. Patient was still in the 200s and 300s. Levemir last evening was increased to 16 units. Patient remains on propofol and fentanyl drips. Lovenox was increased to 60 mg twice daily. 09/24: PEEP was increased today to 20, tidal volume is at 375 and FiO2 of 50%. Patient has been afebrile. She has been started on levo fed. Repeat chest x- ray reveals bilateral multifocal confluent opacities consistent with Covid 19 or ARDS redemonstrated. Nephrology will plan dialysis for tomorrow for 3 L. Patient remains on propofol fentanyl and Nimbex. WBC 12.5, hemoglobin 9.8, platelet count 161. D-dimer 13.3. Sodium 132, potassium 3.4, chloride 102, CO2 20, BUN 48 and creatinine 4.67. Blood sugars extremely elevated to 96-409. LDH 2217. 09/25: Patient remains in the intensive care unit on mechanical ventilation with tidal volume 375, FiO2 50 and PEEP of 20. Patient is afebrile, heart rate 61, respiratory rate 36, blood pressure 102/56, pulse ox 97%. Repeat blood work reveals WBC 9.3, hemoglobin 8.5 and platelet count 171. Sodium 130, potassium 3.7, chloride 100, CO2 20, BUN 61 creatinine 5.65. Blood sugars have been elevated up to 455. Levemir increased to 20 units twice daily, NovoLog 5 units every 6 hours and continue NovoLog scale. Patient is scheduled for hemodialysis today. Repeat chest x-ray reveals bilateral multifocal and confluent opacities. Decadron and Lovenox dosing change by pulmonary. Patient is off norepinephrine. 09/26: Patient remains in the intensive care unit on mechanical ventilation with tidal volume 375, FiO2 50 and PEEP of 15. She has been afebrile, heart rate 91, blood pressure 114/68, pulse ox 99%. monitoring specialist sinus rhythm. 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 Sodium 134, potassium 3.6, chloride 102, CO2 22, BUN 41 creatinine 4.21. Patient has improved blood sugars this morning running 150s and 160s. Diabetic medications were adjusted yesterday. Patient is awake and alert and interacting. Yesterday, patient had PICC line inserted by interventional radiology. Repeat chest x-ray reveals diffuse airspace infiltrates in both lung ann appear to progress slightly in the interval. 09/27: Patient remains in intensive care unit on mechanical ventilation with improvement of settings with tidal volume 375, FiO2 decreased to 40 and PEEP decreased to 10. Patient is on hemodialysis every other day and plan to remove 3 L today. Patient is more awake and alert. She is slow to respond but is able to follow simple commands. Blood sugars are running between 84 and 123. Repeat blood work reveals WBC 7.1, hemoglobin 8.1, platelets 152. Sodium 135, potassium 3.6, chloride 103, CO2 21, BUN 53 and creatinine 5.88. Repeat chest x-ray revealed cardiomegaly and pulmonary edema. Patient is on tube feedings:. Patient is not require vasopressors and is off sedation. Fecal management system remains in place for brown liquid stool. C. difficile was negative. 09/28: Patient remains on mechanical ventilation with tidal volume 375, FiO2 increased to 80 and PEEP increased to 18. Patient had a rough night was very anxious, no pain. Xanax 0.25 mg 3 times daily was added. There is concern for pulmonary embolism for which patient was started on heparin drip, she is unable to undergo CAT scan. Venous Doppler bilateral lower extremities was nondiagnostic due to extensive edema in obese patient but minimal imaging of the popliteal veins does show flow. Repeat echocardiogram has been ordered. Cefepime has also been ordered at 1 g IV piggyback every 24 hours as well as vancomycin, pharmacy dosing. Patient is back on fentanyl drip, propofol drip and norepinephrine. Blood sugars are elevated and insulin Levemir will be increased to 25 mg twice daily. Ferrlecit infusion has been ordered by nephrology for 4 days. Patient is undergoing hemodialysis today.temperature max 100.2, heart rate 134, respiratory rate 34, blood pressure 120/65, pulse ox 94%. monitoring specialist is sinus tachycardia. Repeat blood work reveals WBC 16.9, hemoglobin 9.7, platelet count 216. D-dimer 8.81. Sodium 134, potassium 3.8, chloride 99, CO2 25, BUN 43 and creatinine 5.36. Blood sugars in the 200s. AST 40. 09/29 Patient had declined more last 48 hours require more sedation, patient is doing hemodialysis, respiratory failure is quite bit worse this time. Patient was inquired the pain is well back on fentanyl drip. Her vent set up with PEEP is limited but higher. No new finding on culture and her chest x-ray continues shows diffuse infiltrate persistent although there is a moderate interval improvement. 09/30 patient's was seen and evaluated. PEEP was reduced to 11 as patient is maintaining good saturation at the current vent settings. 10/01 patient was seen at bedside. She is currently on assist control rate of 28 white tidal volume 350 FiO2 50% and PEEP of 10 which has been reduced by pulmonary as patient name cleaning her oxygen saturation. Arm blood gas was obtained with a pH of 7.35 pCO2 37 pO2 of 63. She remains hemodynamically stable with no need for pressors. Labs were reviewed patient's BUN is 29 creatinine 3.93 glucose 122 albumin 2.2 sodium 131 chloride 19 hemoglobin is downtrending with a Hb of 7.3 no leukocytosis 7.1. Patient's urine output is minimal at this time. Her rate has increased to 129 and is currently on positive fluid balance even with dialysis. Last dialysis was done yesterday. Continue enteral feeding currently at goal. Antibiotic has been discontinued and continues to remain on DEXA methicillin 4 mg IV daily. 10/02 patient continues to be on trach support with mechanical ventilation. Patient was evaluated by consultant dietitian and was switched to VC control as patient was noted to be double stacking on and off throughout the night. Respiratory rate continue to 28 tidal volume increased to 400 with a PEEP for Dr. Downey. Patient is maintaining oxygen saturation 91% on the current setting. According to the nurse bedside patient saturation drops significantly or she is moved or her sedation is dropped. Patient is currently on propofol drip, fentanyl drip. She did underwent dialysis today and was able to maintain her low pressure without the need of pressors. Labs reviewed today suggest a WBC of 6.7 hem oglobin of 7.0 and d-dimer 3.9 bicarb 17 BUN 38 creatinine 4.8. LDH is 964. Sodium 1:30 likely secondary to volume overload. Urine sodium and urine osmolality ordered. Patient's glucose this morning is 146. Continue to remain on enteral feeding. Urine output is reduced. Fall catheter will be placed today. Continue to remain on dialysis. 10/03: Patient remains on mechanical ventilation and is back on propofol and fentanyl drips. Patient is currently on VC control with tidal volume 400, FiO2 55 and PEEP of 12. Patient still is not making any urine and is dialysis dependent with next treatment planned for tomorrow with removal of 3-3-1/2 L. PEG tube feedings are at goal. Fecal management system remains in place. At the time of evaluation, patient is off levophed. Repeat chest x-ray reveals stable diffuse bilateral airspace disease correlate for ARDS, pulmonary edema or diffuse pneumonia. Temperature max last evening was 101. Temperature currently 99, heart rate 106, respiratory rate 32, blood pressure 101/50, pulse ox 86%. Repeat blood work reveals WBC 6, hemoglobin 7.4, platelet count 160. D-dimer 4.05. Sodium 133, potassium 3.5, chloride 100, CO2 23, BUN 31 creatinine 3.8. Blood sugars are running between 100 and 170. Ferritin 1514. Liver function test normal. LDH 1016, C-reactive protein 13.6. Prognosis remains guarded. 10/04: Patient remains intubated on mechanical ventilation with tidal volume 400, FiO2 65, PEEP of 14. Patient continues to run fevers and repeat blood culture and urine and urine culture ordered for today. Haley catheter has been removed this patient has no significant urine output at about 20 mL per shift. BladderScan is monitored for greater than 300 and the patient is straight cathed. Hemoglobin is 6.8 and she has been ordered 41 unit of packed RBCs today. She is currently on propofol and fentanyl drips. She is scheduled for hemodialysis today. WBC 4.5, hemoglobin 6.8, platelet count 151. D-dimer 3.28. Sodium 132, potassium 4.1, chloride 100, CO2 22, BUN 37 creatinine 4.74. Blood sugars running between 97 and 110. Ferritin 1801. LDH 859. C-reactive protein 14.4. Chest x-ray reveals correlate for pneumonia, edema, ARDS. Prognosis remains guarded. 10/05: Patient remains in intensive care unit currently on mechanical ventilation with tidal volume 400, FiO2 was increased to 100 and PEEP is at 14. She continues to run fevers which have worsened with temperature max 103.1. She has been tachycardic in the 130s, blood pressure is marginal but not on vasopr essors. Pulse ox currently 92%. Repeat blood work reveals WBC 5.5, hemoglobin 7.6, platelet count 190. D-dimer 2.7, ferritin 1770, LDH 932, C-reactive protein 21.4. Blood sugars are running between 100 1669. Electrolytes are normal. BUN 27 and creatinine 3.79. Pancultures were done yesterday including a straight cath for urine culture, sputum culture and blood culture. Arterial line was removed as well as midline. She is currently on propofol, fentanyl and started on Nimbex today. 10/06: Patient remains in the intensive care unit. Today patient in prone positi on and remains on mechanical ventilation with tidal volume 350, FiO2 65 and PEEP of 14. Her last documented fever was yesterday at 2 PM. Heart rate is in the 120s, respiratory rate 32, pulse ox 88-92%. CBC is unremarkable. Electrolytes are normal. BUN 30 creatinine 2.93. Blood sugars are running between 135 and 164. Cultures from October 04: Blood culture no growth, sputum culture finalized, urine culture finalized. Catheter tip culture is in process. Repeat chest x- ray shows bilateral interstitial infiltrates. Patient is on tube feedings of Nepro at goal of 30 ML's per hour. Patient underwent dialysis yesterday and is scheduled for repeat dialysis today. 10/07: Patient maintains in the intensive care unit intubated and on mechanical ventilation. She is receiving hemodialysis this morning has been every day. Plan is to remove 2-1/2 L today. Vent settings have changed today with tidal volume 350, FiO2 was increased to 100% and PEEP remains at 14. She has been continued on Nimbex, fentanyl, norepinephrine and propofol. Plan is to prone position patient following dialysis. Repeat chest x-ray reveals worsening interstitial infiltrates. BUN is 26 and creatinine 2.59. LDH 955, C-reactive protein 22.1. Prognosis remains poor. 10/08: Patient remains in intensive care unit intubated and on mechanical ventilation with tidal volume 350, FiO2 60, PEEP of 14. She is pronating today. She is scheduled for hemodialysis on a daily basis. She has been afebrile, heart rate 112, respiratory rate 36, blood pressure 161/88, pulse ox 93%. Repeat blood work reveals WBC 9.9, hemoglobin 9.1, platelet count 320. Sodium 133, potassium 5.3, chloride 100, CO2 20, BUN 29 creatinine 2.44. Blood sugar running between 102 and 139. LDH 1026, C-reactive protein 19.7. 10/09: Patient is undergoing dialysis this morning. She continues to be intubated and on mechanical ventilation with tidal volume 350, 270 and PEEP of 14. Patient is also on propofol, Nimbex, norepinephrine and fentanyl drips. Repeat chest x-ray reveals persistent bilateral multifocal and confluent opacities consistent with Covid 19. She is afebrile, heart rate 116, respiratory rate 36, blood pressure 120/65, pulse ox 91%. Repeat blood work reveals WBC 5.4, hemoglobin 9.2, platelet count 216. D-dimer 2.67, ferritin 2568, LDH 794, C- reactive protein 13.9. Blood sugars have been running 90-104. Creatinine 1.64. She is on daily dialysis treatment. 10/10: She remains in the intensive care unit. She is now out of isolation as a repeat Covid test came back negative. She remains on mechanical ventilation with tidal volume 350, FiO2 70 and PEEP of 14. Patient is also on Nimbex, propofol, norepinephrine, fentanyl drips. She is on PEG tube feedings at goal and tolerating well. Repeat blood work reveals WBC 7.8, hemoglobin 7.5, platelet count 267. Sodium 139, potassium 3.9, chloride 109, CO2 20, BUN 20 creatinine 1.29. Blood sugars are running between 76 and 102. Scheduled NovoLog decreased to 3 units. Repeat chest x-ray reveals moderate cardiomegaly and continued pulmonary edema. Slight interval improvement. Patient is continued on daily hemodialysis. 10/11: Patient remains in intensive care unit on mechanical ventilation with tidal volume 325, FiO2 70, PEEP 14. She is currently being prone. She underwent h emodialysis this morning with removal of 4 L of fluid with plan to continue daily treatment. She is currently on Nimbex, fentanyl and propofol. No vasopressor at this time. Fecal management system remains in place. She is on tube feedings currently at hold due to prone positioning. Patient has been afebrile, heart rate 116, respiratory rate 36, blood pressure 100/58, pulse ox 93-96%. Repeat blood work reveals WBC 9.3, hemoglobin 8.1, platelet count 276. Sodium 136, potassium 4.3, chloride 103, CO2 20, BUN 20 creatinine 1.14. Blood sugars running between 133 and 202. 10/12: Patient remains in the intensive care unit. She is undergoing hemodialysis this morning. She's been afebrile, heart rate in the 120s, respiratory rate 32, blood pressure 102/65. She is not on vasopressors. She is continued on Nimbex, fentanyl and propofol. Vent settings are currently tidal volume 325, FiO2 70, PEEP 14. Total platelet count 273. Sodium 133, potassium 4.7, chloride 100, CO2 19, BUN 21 creatinine 0.91. Blood sugars running between 121 and 143. 10/13: Patient remain in the ICU she is on hemodialysis daily, she is still on the vent with a PEEP of 14 and FiO2 of 70. Her oxygenation is marginal pulse rate still high. Patient had scratched cornea was seen in ophthalmology decided to keep doing eyedrops along with eye patch at this point. Prognosis still very bad this point. 10/14: She remains on mechanical ventilation with tidal volume 325, FiO2 70% and PEEP of 14. She did require label fed last evening for about 6 hours. She did not tolerate pronating yesterday. She is undergoing dialysis this morning with plan for removal of 4 L. Blood sugars have been low and IV fluids changed to D10 until blood sugars have recovered. Levemir and scheduled NovoLog discontinued. Patient is on tube feedings at goal there's been no change in this. 10/15 patient remains on mechanical ventilation in the intensive care unit. FiO2 still at 70%, PEEP of 18. Blood sugars have improved since medications were adjusted. White blood cells 33.9, hemoglobin 8.5, sodium 135, BUN 19, creatinine 0.96. Patient to receive dialysis again today. Patient did run a low-grade fever throughout the night and pro calcitonin level is ordered. Chest x-ray showed continued diffuse bilateral airspace disease. Patient remains on tube feedings at goal. 10/16: Patient remains on mechanical ventilation with tidal volume 300, FiO2 70, PEEP of 15. Fecal management system is out. She is currently on low dose of norepinephrine. She is also on fentanyl drip, propofol drip, rocuronium drip. Heart rate is running in the 130s, sinus rhythm, blood pressure 121/63, pulse ox 95%. Patient is been afebrile. Repeat blood work reveals WBC 18.9, hemoglobin 7.5, platelet count 291. Sodium 135, potassium 4.2, chloride 101, CO2 19, BUN 25 and creatinine 1.36. Blood sugars are running between 143 and 199. Patient is on scale insulin only. Repeat chest x-ray reveals persistent bilateral multifocal and completed opacities consistent with Covid 19. 10/17: Patient remains on mechanical ventilation with tidal volume 300, FiO2 50, PEEP of 14. She is currently receiving hemodialysis. The patient is having yellow-colored drainage from the trach site. This is going to be culture today. Repeat blood work reveals WBC of 24, hemoglobin 7.3 and platelet count 310. Sodium 136, potassium 4.1, chloride 101, CO2 19, BUN 24 creatinine 1.43. Blood sugar 139. Capillary blood glucose running 147 and 189. Repeat chest x-ray is unchanged. Patient had increased respiratory rate 40s and 50s with oxygen saturation of 87 and now was increased and Seroquel added this morning. Prognosis remains guarded. 10/18: Patient remains on mechanical ventilation with tidal volume 300, FiO2 60, PEEP has been decreased to 12. Patient will need a PEEP of 8 in order to transfer to long-term care. She is currently on fentanyl drip and Precedex drip. Patient is tracking when her name is stated. She seems to be slightly improved today. Patient has been afebrile, heart rate 106, respiratory rate 32, blood pressure 110/61, pulse ox 98%. Repeat blood work reveals WBC 30.3, hemoglobin 7.2, platelet count 350. Sodium 139, potassium 4.2, chloride 103, CO2 20, BUN 23 creatinine 1.79. Blood sugars are increasing running up 299. Patient will be placed on Levemir. Secretions from tracheotomy sent for culture and in process. She is currently undergoing hemodialysis. 10/23: Patient remains in the intensive care unit on mechanical ventilation with tidal volume 300, FiO2 65 and PEEP of 10. monitoring specialist has been in a sinus rhythm. Patient does open her eyes and appears to be tracking. Blood sugars have been elevated. Levemir will be increased to 40 units daily and scheduled NovoLog increased to 12 units and continue NovoLog every 6 hours per scale. Patient is receiving hemodialysis today. She is not currently on vasopressors. Patient is on Precedex drip only. Antibiotics in the form of cefepime were started on October 18. Patient has been afebrile, heart rate 126, respiratory rate 36, blood pressure 163/105. Pulse ox 91%. Repeat blood work reveals WBC 16.0, hemoglobin 7.2, platelet count 208. Electrolytes are within normal limits. BUN 62 and creatinine 2.43. Blood sugars running between 259-321. Most recent blood culture from October 22 is no growth at 24 hours. Repeat chest x-ray reveals cardiomegaly and persistent bilateral pulmonary edema. 10/24: Patient is awake, eyes are open and tracking, she is able to follow simple commands. Severe generalized weakness noted. Precedex gtt has been discontinued. Patient is receiving hemodialysis. Her blood sugars have remained elevated for which Levemir increased to 25 units twice daily along with 15 units of NovoLog every 6 hours along with scale. Tidal volume 330, FiO2 60, PEEP of 8. logistics program manager and dialysis social worker following closely. Anticipate possible discharge by the end of next week to long-term care facility. 10/25: Patient remains in the intensive care unit on mechanical ventilation. Tidal volume 350, FiO2 60, PEEP 8. She is receiving hemodialysis this morning. Her heart rate remains elevated in the 130s. Pulmonary as started her on Cardizem at 60 mg 3 times daily which has not had any improved effect. We'll start the patient on Lopressor 25 mg twice daily. Patient has been afebrile, heart rate respiratory rate 32, blood pressure 151/91, pulse ox 98%. Patient is been transfuse 1 unit of packed RBCs today. Patient's mental status is improving and patient is able to follow simple commands. WBC 12.2, hemoglobin 6.3, platelet count 196. Sodium 135 otherwise looked lites are normal, BUN 48 creatinine 1.99. Blood sugars are running between 120 and 172. Levemir has been increased to 30 mg twice daily continue 15 units of NovoLog every 6 hours with scale. 10/26: Patient remains in intensive care unit, on mechanical ventilation with tidal volume 375, FiO2 50, PEEP of 8. Patient's heart rate remains elevated 120s and Lopressor increased to 50 mg twice daily. Patient seems to be quite anxious and depressed. We will decrease Seroquel to 50 mg twice daily and start patient on Lexapro. Patient received her first dose of Xanax this morning but this did not seem to help heart rate either. She has been afebrile, heart rate 128, blood pressure 149/79, pulse ox 93%. Repeat hemoglobin 7.3. Sodium 135, potassium 3.9, chloride 90, CO2 30, BUN 45 and creatinine 1.94. Blood sugar are improved running between 117-194. We will make further adjustments to insulin and to increase long-acting to 35 units twice daily and decrease NovoLog scheduled to 7 units and continue NovoLog scale. There are problems with patient's trach and consequently placed with [facility]. General surgery to reevaluate trach. 10/27: Patient is complaining of nausea today. Concerned that this is related to Lexapro. We will further decrease Seroquel to 50 mg at bedtime. Patient is being bladder scanned and last bladder scan wasn't 125 mL. She does not have Haley catheter. No fecal management system. She is having a bowel movement about 3 per day. Plan is for CPAP trial today. She is currently on mechanical ventilation with tidal volume 375, FiO2 50 and PEEP of 8. She has been afebrile, heart rate 105 which is much improved from the last few days. Blood pressure 145/88, pulse ox 94%. There is a new consult in place for Dr. Clemente regarding exchanging the trach and possible debridement at site. WBC 11.4, hemoglobin 8.2, blood count 218. Sodium 136, potassium 4.1, chloride 97, CO2 31, BUN 47 creatinine 1.97. Blood sugars running between 129 and 204. We have changed long acting insulin to 35 units twice daily and continue NovoLog 7 units every 6 hours and scale every 6 hours. Nephrology may be decreasing frequency of dialysis treatments. Anticipate probable discharge to long-term care next week. 10/28: Patient was complaining of nausea today which has resolved. CPAP trial will continue today. She is currently on mechanical ventilation with a tidal volume 375, FiO2 of 50, PEEP of 8. She is afebrile, heart rate 108 which continues to show improvement. Blood pressure 133/87, pulse ox 99%. Patient is able to follow commands. And answers appropriately with nodding her head. WBC 10.5, hemoglobin 8.0, potassium 4.6, BUN 46, creatinine 1.96. Patient is cur rently receiving hemodialysis. 10/29: Patient was found sitting up in bed. Able to answer some questions appropriately. Utilizing kim. Able to follow commands. [place] over elevated blood sugars. Levemir 35 units twice a day will continue at this with a 7 unit coverage. Patient remains afebrile. Heart rate 102, respirations 29, blood pressure 124/74, pulse ox 97% on mechanical ventilation. Mechanical ventilation settings with a tidal volume 375, FiO2 of 50 and a PEEP of 8. Family has been into see patient. Hemodialysis will be held today. 10/30: Patient remains in the ICU on mechanical ventilation. She is not requiring pressure support. She is on CPAP support. She is receiving hemodialysis this morning with plan to start a Friday schedule this week. Blood sugars are stable and running between 140 and 184. She is on tube feedings at goal and having bowel movements every 12 hours. Repeat blood work reveals WBC 8.9, hemoglobin 10.2, platelet count 258. Sodium 133, potassium 5.0, chloride 97, CO2 23, BUN 69 creatinine 2.67. 10/31: Patient is seen today in intensive care unit. She remains on mechanical ventilation with tidal volume 375, FiO2 45 of PEEP of 5. Patient is found sitting in a chair working with physical therapy. Patient is noted to have left arm weakness without pain and good sensation. She is not receiving dialysis today and will be started on Friday regime. Patient's heart rate is better controlled in the 80s, blood pressure 113/65, pulse ox 99%. Patient is been afebrile. Patient has been on cefepime. Repeat blood work reveals WBC 9.3, hemoglobin 6.9 and patient is transfused 1 unit of packed RBCs today. Platelet count 248. Electrolytes are within normal range, BUN 38 and creatinine 2.04. Her blood glucose running between 130 and 193. AST 38. Social work is working with the daughter regarding discharge planning. 11/01: A she was undergoing dialysis with plan for 3 L removed today and dialysis is scheduled Friday. She is in bed and appears to be comfortable. She is able to talk and express herself and is cognitively intact. She remains on mechanical ventilation. She has been afebrile, heart rate 107, blood pressure 115/85, pulse ox 99%. Repeat blood work reveals WBC 8.5, hemoglobin 7.5, platelet count 278. Sodium 136, potassium 4.8, chloride 100, CO2 27, BUN 55 creatinine 2.81. Blood sugar running between 114 and 185. Calcium 10.3, total bilirubin 0.2, AST 34, ALT 34, alkaline phosphatase 144. Social work is working on discharge planning which will be to [facility], [facility] or [facility]. 11/02: Patient remains in the intensive care unit on mechanical ventilation with tidal volume 375, FiO2 40, PEEP of 5. Patient's mental status continues to be improved. She has been afebrile, heart rate 97, blood pressure 144/86, pulse ox 98%. Repeat blood work reveals WBC 8.3, hemoglobin 7.2, platelet count 255. Sodium 135, potassium 4.5, chloride 98, CO2 20, BUN 42 and creatinine 2.36. Blood sugars are running between 124 278. She is scheduled for hemodialysis tomorrow with plan for 4 L to be removed. Social work is working on discharge plan and once patient has been accepted and insurance authorization is obtained if needed, patient will be discharged. 11/03: Patient remains in intensive care unit on mechanical ventilation patient is currently on pressure support of 15, CPAP of 5 and FiO2 of 40%. A trach collar is to be attempted today in order to get the patient discharged to nursing home care facility. Land is for medical [facility] [place] on Friday if patient continues to improve. He has been afebrile, heart rate in the 80s, blood pressure 90/57, pulse ox 100%. Repeat blood work reveals WBC 7.5, hemoglobin 6.9, platelet count 255. Sodium 133, potassium 5.1, chloride 97, CO2 27, BUN 59 creatinine 3. Blood sugars up and running 117 164. 11/04 patient remains in ICU, this is day number 55, pulmonary is following closely, they have recommended fenestrated trach, for which Dr. warren is going to perform, patient is anticipated to be discharged to long-term care facility, most likely early next week. She is stable, with no new fevers, antibiotics has been completed, blood sugars are stable, hemoglobin 7.7, WBC 8.5, blood sugars running between 145-150, creatinine of 2.34 11/05: Patient remains in ICU, trach collar replaced by Dr. Zhang this a.m., patient's communicating with handwritten communication mentions that she has back pain, on IV Dilaudid still, we'll replace [place] 7.5, also cannot sleep, muscle relaxants started with cyclobenzaprine, where finalizing discharge planning, to subacute rehab long-term care no fever no chills, coughing a lot, with mucus production, suctioning on the trach when necessary by nursing staff, 11/06: Patient is still having refractory sleep, wakes up with chills and sweats, also. Alternating hot and cold, iron is suspected to be low, hemoglobin of 7.2, check for iron studies, on Ativan and aspirin, start melatonin 6 mg at bedtime, might need Zestril, however is on Seroquel. We'll going to increase Seroquel to 75 mg blood sugars are stable, no change in program today, pain control is better, using [place] 7.5 11/07: DISCHARGE DIAGNOSES 1. Acute hypoxic respiratory failure secondary to Covid 19 pneumonia and possible bacterial pneumonia. Plan for fenestrated trach collar prior to transfer to subacute rehab long-term stay Patient was intubated on September 11. She is status post 1 dose of Remdesivir and 1 dose of Tocilizumab. Continue Ventolin inhaler 4 times daily, Lovenox 30 mg subcu daily, supplements. Status post PEG tube and trach. Completed cefepime for a Citrobacter pneumonia. 2. Acute diabetic ketoacidosis secondary to Covid 19 pneumonia, controlled with hyperglycemia. Levemir 35 units twice daily and scheduled NovoLog increased to 7 units every 6 hours and continue NovoLog scale every 6 hours. 3. Metabolic encephalopathy secondary to Covid 19 and DKA. 4. Sepsis and septic shock secondary to Covid 19 pneumonia with multiorgan failure. Continue as in #1. Trach drainage cultured. General surgery on consult. 5. Acute metabolic acidosis secondary to acute DKA, Covid 19 and acute kidney injury. Renvela 1600 mg q6h. 6. Diabetes mellitus type 2 uncontrolled with A1c 13.6. Continue as above. 7. Hypophosphatemia status post replacement. 8. Hyperkalemia secondary to DKA, resolved. 9. Sinus tachycardia secondary to sepsis, volume deficiency. Patient is on Cardizem 60 mg 3 times daily, and Lopressor 50 mg twice daily. 10. Acute kidney injury secondary to ATN secondary to Covid 19 and DKA. Continue hemodialysis on Friday. 11. Citrobacter gram-negative pneumonia versus MRSA pneumonia. Completed course of antibiotics. 12. Hypertension. 13. Morbid obesity with BMI of 53. 14. Situational depression and anxiety. Seroquel decreased to 50 mg at bedtime , continue Lexapro 10 mg daily and Xanax 0.25 mg twice daily as needed. 15. DVT prophylaxis. Lovenox. 16. GI prophylaxis. Protonix 40 mg IV push daily. 17. Stage IV pressure ulcer to trach site. Currently utilizing absorptive silver dressing. 18. Stage II decubitus ulcer to coccyx. 19. Critical illness polyneuropathy and myopathy. Continue physical therapy. 20. Anemia of chronic disease. Status post Transfusiob of packed RBCs, continue Aranesp 40 g every 7 days. CODE STATUS: Full code Prognosis guarded. DISCHARGE PLAN [facility] on Friday. Impression and plan of care have been directed as dictated by the signing physician. Kimberly Boswell nurse practitioner acting as scribe for signing physician. Plan - Discharge Summary New Discharge Prescriptions: New Artificial Tears-Hypromellose [Artificial Tear Drops] 2 drops BOTH EYES QID PRN bottle PRN Reason: Dry Eye(S) Diltiazem Oral [Cardizem*] 60 mg PO TID tab Insulin Detemir (Levemir) [Levemir] 35 unit SQ BID@0700,2100 syr Escitalopram [Lexapro] 10 mg PO DAILY tab Enoxaparin [Lovenox] 30 mg SQ DAILY syringe HYDROcodone/APAP 7.5-325MG [[place] 7.5-325] 1 each PO Q6H PRN #18 tab PRN Reason: Pain INSULIN ASPART (NovoLOG) [NovoLOG (formulary)] 0 unit SQ Q6H vial Hydrophilic Cream [Triad Cream] 1 applic TOPICAL DAILY applic Acetaminophen Tab [Tylenol] 650 mg PO Q6HR PRN tab PRN Reason: Fever And/ Or Pain Albuterol Inhaler [Ventolin Hfa Inhaler] 2 puff INHALATION RT-QID puff Darbepoetin Emerson [Aranesp] 40 mcg SQ Q7D syringe Cyclobenzaprine [Flexeril] 10 mg PO HS tab Metoprolol Tartrate [Lopressor] 50 mg PO BID tab Nystatin 100,000 Unit/ml Susp [Mycostatin Oral Susp] 500,000 unit PO Q6HR ml Nystatin 100,000 Unit/gm Powd [Mycostatin Powder] 1 applic TOPICAL TID applic INSULIN ASPART (NovoLOG) [NovoLOG (formulary)] 7 unit SQ Q6HR vial Chlorhexidine Gluconate [Peridex] 15 ml MUCOUS MEM BID ml Sevelamer [Renvela] 1,600 mg PO Q6HR tab ALPRAZolam [Xanax] 0.25 mg PO BID PRN #6 tab PRN Reason: Anxiety Discontinued sitaGLIPtin PHOSPHATE [Januvia] 100 mg PO DAILY metFORMIN HCL 1,000 mg PO BID Discharge Medication List ALPRAZolam [Xanax] 0.25 mg PO BID PRN #6 tab 11/07/20 [Rx] Acetaminophen Tab [Tylenol] 650 mg PO Q6HR PRN tab 11/07/20 [Rx] Albuterol Inhaler [Ventolin Hfa Inhaler] 2 puff INHALATION RT-QID puff 11/07/20 [Rx] Artificial Tears-Hypromellose [Artificial Tear Drops] 2 drops BOTH EYES QID PRN bottle 11/07/20 [Rx] Chlorhexidine Gluconate [Peridex] 15 ml MUCOUS MEM BID ml 11/07/20 [Rx] Cyclobenzaprine [Flexeril] 10 mg PO HS tab 11/07/20 [Rx] Darbepoetin Emerson [Aranesp] 40 mcg SQ Q7D syringe 11/07/20 [Rx] Diltiazem Oral [Cardizem*] 60 mg PO TID tab 11/07/20 [Rx] Enoxaparin [Lovenox] 30 mg SQ DAILY syringe 11/07/20 [Rx] Escitalopram [Lexapro] 10 mg PO DAILY tab 11/07/20 [Rx] HYDROcodone/APAP 7.5-325MG [[place] 7.5-325] 1 each PO Q6H PRN #18 tab 11/07/20 [Rx] Hydrophilic Cream [Triad Cream] 1 applic TOPICAL DAILY applic 11/07/20 [Rx] INSULIN ASPART (NovoLOG) [NovoLOG (formulary)] 0 unit SQ Q6H vial 11/07/20 [Rx] INSULIN ASPART (NovoLOG) [NovoLOG (formulary)] 7 unit SQ Q6HR vial 11/07/20 [Rx] Insulin Detemir (Levemir) [Levemir] 35 unit SQ BID@0700,2100 syr 11/07/20 [Rx] Metoprolol Tartrate [Lopressor] 50 mg PO BID tab 11/07/20 [Rx] Nystatin 100,000 Unit/gm Powd [Mycostatin Powder] 1 applic TOPICAL TID applic 11/07/20 [Rx] Nystatin 100,000 Unit/ml Susp [Mycostatin Oral Susp] 500,000 unit PO Q6HR ml 11/07/20 [Rx] Sevelamer [Renvela] 1,600 mg PO Q6HR tab 11/07/20 [Rx] Follow up Appointment(s)/Referral(s): Dialysis,[facility] [NON-STAFF] - 11/08/20 1:30 pm (Regular scheduled time will be MWF at 1345. ) [facility], [NON-STAFF] - Rayo Arroyo MD [Primary Care Provider] - 1-2 days Discharge Disposition: TRANSFER TO SNF/ECF
--- NOTE | 2020-11-07 11:05 | P.PN ---
Subjective Progress Note Date: 11/07/20 Principal diagnosis: DKA, COVID-19 pneumonia This is a 55-year-old -[place] female with history of type 2 diabetes, admitted today through the emergency room with a few days' history of increased shortness of breath, cough, fever, chest x-ray in the ER showed bilateral i nfiltrates consistent with COVID-19 pneumonia in the patient had positive PCR for COVID-19 infection. Patient had significantly abnormal labs on admission, she had an extremely low bicarb, extremely low pH, and marginal oxygenation at best. Patient was admitted to the regular medical floor, and I happened to be rounding on that same floor were and I was notified about this patient having worsening respiratory distress. Evaluated the patient, clearly the patient has DKA and she clearly has acute hypoxic respiratory failure secondary to COVID-19 pneumonia. As soon as I laid eyes on the patient, recommended immediate transfer to the ICU. Patient was placed on BiPAP however she did not tolerate BiPAP well, and when I went back to evaluate the patient in the ICU, she was basically deteriorating, and she was using her accessory muscles, patient was in severe respiratory distress. Hence I recommended immediate intubation and placement on mechanical ventilation. Chest x-ray continued to show bilateral infiltrates consistent with worsening COVID-19 pneumonia ABG showed a pO2 of 59 pCO2 of 42 pH of 7.05 and this was on the 100% FiO2 20 of PEEP tidal volume of 375 rate of 36. Patient will be given more bicarb and she is already on a bicarb drip. She is receiving insulin and she is also receiving IV fluids in the form of 0.9 normal saline. Sugars were 384. Inflammatory markers were added to be extremely high, LDH 2048, and C-reactive protein of 8.7. D-dimer was borderline elevated at 1.84. On 09/12/2020 patient seen in follow-up in the intensive care unit, yesterday she was emergently transferred to the intensive care and intubated and placed on mechanical ventilator. She remains intubated, sedated on mechanical ventilator, currently on assist control mode of ventilation with a rate 36, tidal vital 375, FiO2 100% and PEEP of 20. This might blood gas reveals pO2 of 62, pCO2 40, pH of 7.35 this was done on FiO2 of 80%, her peak airway pressure is 35, in her plateau pressure is around 32. she is sedated on Diprivan and 60 mics per kilo per minute, 0.9 normal saline at 100 ML per hour, insulin drip is at 4 units per hour, and she has 5% dextrose with 3 units of bicarbonate at 100 ML per hour. Today's labs have been reviewed, showing white blood cell count 10.3, hemoglobin of 14.4, d-dimer has increased to 14.31, and her Lovenox was adjusted and increased to 50 mg twice daily, sodium is 137, potassium is 3.7, chloride is 112, CO2 is up to 21, BUN of 16 creatinine is 1.57, LDH is 2618, CRP is 18.2. Pro-Calcitonin level came back elevated at 3.53, suggesting possibility of bacterial infection She received a liter bolus yesterday after intubation. We w ill give the patient additional fluid boluses today. Sputum culture has been sent and is pending, blood cultures have been sent. Patient has been placed in prone position at 8:00 last night, and her oxygenation seems to be improved and she satting 97% on 100% FiO2 and subsequently FiO2 was dropped down to 80%, and PEEP is down to 18. She remains in prone positioning, tolerating it well, she is having low-grade fevers, she is in sinus mechanism with tachycardic on the monitor, not requiring any vasopressor support right now, will start tube feedings today when the patient is placed back over in the supine position On 09/13/2020 patient seen in follow-up in intensive care unit, she remains proned, and at the time of our evaluation patient has already been prone for close to 16 hours and is about to be turned back on her spine. She tolerates prone position quite well, she remains intubated, paralyzed and sedated on mechanical ventilator, current vent settings are assist-control mode of ventilation with a rate of 36, tidal volume 375, FiO2 of 70% and PEEP of 18, this point his blood gases show pO2 of 82, pCO2 of 39, and pH of 7.19. She's currently on D5 W with 3 A of bicarbonate at 75 per hour, Diprivan is a 60 mics per kilo per minute, index is at 2 mics per kilo per minute, and insulin drip is at 6 units per hour, patient has not started tube feedings yet. She is in sinus mechanism, hemodynamically stable, not requiring any vasopressor support. Today's chest x-ray has been reviewed showing bilateral lung infiltrates that appear to be stable. Today's labs have been reviewed showing white blood cell count of 11.1, hemoglobin 13.2, d-dimer is pending, yesterday his d-dimer was 14.3, patient's Lovenox dose was increased to 50 mg every 24 hours. Her renal function continued to worsen, and her creatinine is up to 3.4 on today's labs, BUN is 24, were bicarb concentration is only 13 on today's labs, sodium is 137, potassium is 4.0. AST is up to 77, ALT and alk phos are within normal limits, yesterday set him inflammatory markers with showing up trending LDH at 2618, and CRP of 18.2. Her pro-calcitonin level was increased yesterday at 3.53 and we added empiric antibiotics in the form of Zosyn. Sputum culture has been sent and has shown no growth. Overnight patient remained oliguric, yesterday we gave her additional fluids, however did not improve her renal function and her kidney function continued to get worse. Nephrology consultation has been requested, she has only been producing urine in the order of 5-10 ML per hour, renal ultrasound has been obtained showing no evidence of hydronephrosis bilaterally. On 09/14/2020 patient seen in follow-up in intensive care unit, she remains intubated, sedated and paralyzed, currently on assist control mode of ventilation with a rate of 36, tidal vital 375, FiO2 of 60% and PEEP of 18. This morning's blood gas was reviewed showing pO2 of 60, pCO2 of 43, and pH of 7.32. This was done on FiO2 of 70%, her peak airway pressure is 40, plateau pressures 26. She is currently on D5 with 3 A of bicarbonate at 100 ML per hour, insulin drip is at 7 units per hour, fentanyl drip is a 0.5 mics per kilo per hour, Diprivan and is at 50 mics per kilo per minute, and index is at 2 mics per kilo per minute. She is tolerating tube feedings of vital high-protein at 27 with a goal 27 standard water flushes. Today's chest x-ray has not been completed yet, because the patient has been in prone position for last 16 hours. Patient tolerates prone in quite well, and her oxygenation improves when she is in prone position. However when she is turned over in the supine position to complete chest x-rays and ADL's, patient's O2 sat drops down to low 80s and her FiO2 requirement increases at that time. Today's labs have been reviewed, and there has been further worsening of her renal function, and patient has made almost no urine overnight. Her BUN is 33, and creatinine is 4.87, nephrology is following, her renal ultrasound showed no evidence of hydronephrosis. Her urinalysis showed possibility of urinary tract infection, and patient has been started on cefepime. Urine culture is pending at this time, blood and sputum cultures have been negative. No fevers overnight, she's not requiring any vasopressor support. On 09/15/2020 patient seen in follow-up in intensive care unit, she remains intubated, sedated and paralyzed on assist-control mode of ventilation with a rate of 36, tidal vital 375, FiO2 100% and PEEP of 18, this morning's blood gas reviewed showing pO2 of 58, pCO2 of 45, and pH is 7.35, this was done on FiO2 of 100%. Her peak airway pressures 44, plateau pressures 38, she is on 0.9 normal saline at 50 ML per hour, Diprivan is a 40 mics per kilo per minute, Nimbex drip is a 2 mics per kilo per minute, and fentanyl drip at 0.5 mics per kilo per hour, she is tolerating tube feedings with vital high-protein is 27 with a goal of 27 standard water flushes. She is in sinus mechanism with a rate of 73, she is hemodynamically stable and not requiring any vasopressors. Today's chest x- ray shows ARDS, bilateral airspace opacities, no significant pleural effusion and no pneumothorax. Today's labs have been reviewed, white blood cell count is 9.9, hemoglobin is 11.3, sodium is 134, respiratory electrolytes were within normal limits, and there has been further worsening of her renal function with BUN of 34, creatinine is 4.78, her urine output has remained very poor. Last night she had her first hemodialysis session and no fluid was removed, this morning she is having another hemodialysis treatments and the goal is to remove half a liter of fluid. Her sputum, blood and urine cultures remained negative thus far, patient's pro-calcitonin level came back significantly elevated at 23.5 suggesting evidence of bacterial infection. Patient remains on cefepime for antibiotic coverage, she also remains on Decadron milligrams twice daily, and Lovenox is 50 mg every 24 hours. On 09/18/2020 patient seen in follow-up in the intensive care unit. She remains intubated, sedated and paralyzed on mechanical ventilator on assist control mode with a rate of 36, tidal volume 375, FiO2 of 60% and PEEP of 20, this might blood gas shows pO2 of 72, pCO2 38, and pH is 7.35, today's chest x-ray still showing bilateral airspace disease possibly slightly improved compared yester day's chest x-ray. Patient is currently on multiple drips including 0.9 normal saline at 20 no per hour, Nimbex is at 3 mics per kilo per minute, Diprivan is at 50 mics per kilo per minute, fentanyl drip is at 1 phil per kilo per hour, insulin drip is at 4 units per hour, she is on tube feedings with vital high- protein at a rate of 10 with a goal of 36 and standard water flushes. Patient has been getting hemodialysis treatments, her last treatment was on 09/16/2020 with removal of 1.2 L of fluid. Today's labs have been reviewed, showing white blood cell count of 12.6, hemoglobin of 9.8, last d-dimer from yesterday was 6.83, and patient remains on Lovenox and 50 mg daily, sodium was 133, potassium is 3.2, chloride is 102, CO2 is 21, BUN of 35, creatinine is 4.12. Her last set of inflammatory markers was from yesterday showing improvement although LDH was still elevated at 1913, and CRP was 1.3. She remains on IV Decadron 6 mg twice daily, she is also on cefepime for empiric antibiotic coverage, and so far all her cultures including sputum blood and urine are negative. Patient has been tolerating prone positioning well, and she has been prone up to 16-20 hours on a daily basis. On 09/19/2020 patient seen in follow-up in intensive care unit, she remains sedated, paralyzed and trached to the ventilator currently on assist control mode of ventilation with a rate of 36, tidal volume is 375, FiO2 of 60% and PEEP of 20. This morning's blood gases show pO2 of 85, pCO2 37, and pH of 7.33, and this was done and FiO2 of 60%. She is status post tracheostomy and PEG tube placement yesterday on 09/18/2020, she is currently in supine position, and that she is having hemodialysis treatment. Yesterday 2-1/2 L of fluid was removed with hemodialysis, the goal to remove another 2 L of fluid with today's hemodialysis treatments, today's chest x-ray shows bilateral multifocal and c onfluent opacities consistent with COVID-19 infection, and some improved aeration at the periphery of the left lung but worsening opacities throughout the right lung compared to one day earlier. Patient is currently on 0.9 normal seen at 20 ML per hour, Nimbex is at 1.5 mics per kilo per minute, Diprivan is a 50 mics per kilo per minute, we will send is currently off, fentanyl drip is at 1 phil per kilo per hour, and insulin is at 5 units per hour, tube feedings are on hold and are expected to be restarted later on today. His labs have been reviewed showing white blood cell count of 14.3, hemoglobin of 9.6, d-dimer is relatively stable at 6.48, sodium is 130, potassium is 3.5, CO2 of 18, and renal profile shows some improvement with BUN of 34, and creatinine is 3.81. Her inflammatory markers are improving, LDH today is 1686, and CRP is 1.1. Her blood sputum and urine cultures have shown no growth to date. Patient continues on cefepime, current dose Lovenox is 15 mg once daily adjusted for her renal function, and she continues on Decadron 6 mg twice daily. 10/18/2020 patient is being seen for a follow-up. Remains in intensive care unit on a mechanical ventilator post COVID-19 related ARDS and respiratory failure. For now, we'll managed to get the patient off paralytics. We managed also to switch her to a combination of Precedex and fentanyl. Propofol was discontinued as the patient has developed very high levels of triglycerides. Currently, Precedex is running at 0.6 mics of respiratory event per minute and fentanyl is running at 2 mcg/kg/h. She opens up her eyes. She follows some verbal cues. Nevertheless, she does not follow any commands. She is not moving her arms to demand. She is quite successful mechanical ventilator. This morning, she is on a VAC plus mode with a rate of 32 and tidal volume of 300 and FiO2 of 70% with a PEEP of 14. The peak pressure was around 30 she'll. Blood gases from today showed a pH of 7.5 with a pCO2 of 50 and pO2 of 94. Chest x- ray was still showing diffuse bilateral pulmonary infiltrates consistent with post COVID-19 related ARDS. She is having some respiratory secretions around the tracheostomy tube. There is a concern for infection. Her white cell count is up to 30. Based on that, cultures will be sent and the patient will be started on empiric antibiotic coverage with IV cefepime. She is currently u ndergoing hemodialysis. The plan is to do daily hemodialysis. Last session was done yesterday and the patient ultrafiltration of around 4 L. The same will be done today. She continues to be edematous in all 4 extremities pH is tolerating her enteral feeding for nutritional support. She remains on Decadron at a dose of 4 mg on a daily basis patient is on Lovenox 30 mg subcu for DVT prophylaxis. She is receiving enteral feeding for nutritional support in the form of vital high protein at the rate of 10 mL an hour and this is to be modified nontender the patient is currently off propofol. This will be discussed further with dietary. Otherwise, she is doing better. I am excited to see her opening up her eyes and looking around. Her mental status is not completely recovered yet. Note that the patient was following commands approximately 3 weeks ago prior to her full-blown decompensation. 10/19/2020, I'm seeing the patient for a follow-up. He remains ventilator dependent with ARDS post COVID-19 infection. This morning, we have managed to keep the patient on a combination of Precedex at 0.7 mcg/kg/h and fentanyl at micrograms per kilogram per hour. The patient seems to be quite interested a mechanical ventilator. She is on a VAC plus mode. Her current rate is a 32 with a total volume of 300-60% with a PEEP of 12. Blood gases showing a pH of 7.32 with a pCO2 of 45 and pO2 of 82. Her current respiratory rate is around 36. Her peak airway pressure is 32. She was having some secretions around the tracheostomy tube stoma and based on some fever and purulent mucus and leukocytosis, with a subsequent to this patient IV cefepime. She is currently receiving IV cefepime 12 hours and the cultures positive for gram-negative bacillus. She is still having a low-grade fever. The white cell count is up to 19.9. Chest x-ray remains unchanged with diffuse bilateral pulmonary infiltrates consistent with COVID-19 related pneumonia/ARDS. Note that the patient is currently off propofol. Adjustments were made on enteral feeding and currently she is on vital high AF running at 50 mL an hour which is goal and the patient is able to tolerate that without any major difficulties. The patient is undergoing daily dialysis and despite that she continues to have significant amount of third spacing. For instance, the dialysis was done yesterday with a total of 4 L fluids being ultrafiltrate. Neurologically, she opens her eyes, looks around, does not follow any commands, not sure if she is sleeping. She grimaces to painful stimulation. At times she gets quite restless and agitated. In terms of her COVID-19 and steroid treatment, I been gradually weaning off th e steroids and the patient's will be dropped down to 2 mg patient remains on anticoagulation with Lovenox 30 mg subcu every 24 hours. On 10/20/2020 patient seen in follow-up in the intensive care unit, she is awake, withdraws from pain, purposeful, however not following commands right now, she is still on sedation in the form of Precedex 0.7 mics per kilo per hour, and fentanyl infusion is at 1 phil per kilo per hour, 0.9 normal saline is at 10 ML per hour, and she is requiring small amount of vasopressor support in the form of norepinephrine at 2.2 mics per minute. Patient's trached to the ventilator, currently on VC plus mode of ventilation with a rate of 32, tidal volume was 300, FiO2 of 60% and PEEP of 12. Blood gas shows pO2 of 92, pCO2 49, and pH is 7.32 and this was done on the above mentioned vent settings. His chest x-ray shows evidence of pulmonary vasculature, and findings are compatible with fluid volume overload and congestive heart failure, patient is having a hemodialysis treatment today with a goal of removing 4 L of fluid. Patient has been dialyzed on a daily basis with removal of an average of 4 L of fluid on a daily basis. Does not produce any urine. Haley catheter had been removed several days ago, today's labs have been reviewed, white blood cell count has trended up slightly, and is currently at 22.2, hemoglobin is 6.3 and patient received 1 unit of packed red blood cells, no evidence of any bleeding, platelet count is 275, lites are within normal limits, BUN is 37, and creatinine is 1.8. Her pro-calcitonin level from a couple days ago was elevated at 3.3. Had a recent cultures done including blood and sputum and urine left radial arterial line tip culture and drainage from around the tracheostomy insertion site. Tracheostomy insertion site drainage was positive for Acinetobacter baumanni, patient's currently on cefepime which the organism is sensitive to. She did have fevers last night, afebrile this morning, T-max in the last 24 hours was 102.8F. And is tolerating tube feedings, she is receiving viral a half at 56 ML per hour which is goal, with standard water flushes of 30 mL every 4 hours. Weak, she is looking around the room, but not following any commands, severe generalized weakness, she has mild edema involving her upper and lower arms. On 11/07/2020 patient seen in follow-up in the intensive care unit, she is awake and alert, oriented 3, she is communicating by mouthing words, she is answering questions appropriately. She appears to be in no acute distress, she has been on 35% trach collar since last 11/03/2020. She is tolerating it well. She is satting 92-98 percent. Breathing comfortably. Yesterday's chest x-ray was reviewed showing continue interstitial infiltrates and patchy bibasilar opacities. Patient had her hemodialysis yesterday with removal of 1.3 L of fluid. She has been on Friday hemodialysis schedule. Her tracheostomy was exchanged, and she currently has a #6 coughed [address] tracheostomy tube in place. Patient has a PEG tube in place and she is jose ating tube feedings she has Nepro infusing at a rate of 34 ML per hour. Today's labs have been reviewed, her white blood cell, 7.9, hemoglobin is 8.0, sodium 1:30, potassium is 3.9, chloride is 93, CO2 is 28, BUN is 48, creatinine is 2.8. Patient has completed course of cefepime for evidence of Acinetobacter in her sputum. She had no fever or chills. Vital signs have been stable, no nausea or vomiting, abdomen is soft. Patient is in with physical therapy, she is able to lift her arms off the pillow, make a fist, she is moving her lower extremities as well. Social work is following, and currently discharge planning is in progress for discharge to the [facility] today. No other acute events overnight. Objective - Vital Signs Vital signs: Vital Signs Temp 98.7 F 11/07/20 04:00 Pulse 110 H 11/07/20 07:00 Resp 19 11/07/20 07:00 BP 115/71 11/07/20 07:00 Pulse Ox 95 11/07/20 07:00 Intake & Output 11/06/20 11/07/20 11/07/20 18:59 06:59 18:59 Intake Total 638 498 34 Output Total 1300 0 0 Balance -662 498 34 Weight 87.6 kg 95.3 kg Intake: Oral 200 Tube Feeding 408 408 34 Other 30 90 Output: Urine 0 0 0 Hemodialysis 1300 Other: Voiding Method External Catheter # Voids 1 ABP, PAP, CO, CI - Last Documented Arterial Blood Pressure 136/76 - Exam GENERAL EXAM: Awake, looking around the room, responding and communicating by mouthing words 35-year-old -[place] female, currently on 35% trach collar HEAD: Normocephalic/atraumatic. EYES: Normal reaction of pupils, equal size. Conjunctiva pink, sclera white. NOSE: Clear with pink turbinates. THROAT: No erythema or exudates. NECK: No masses, no JVD, no thyroid enlargement, no adenopathy. Midline tracheostomy in place, patient currently has #6 Shiley cuffed tracheostomy tube in place CHEST: No chest wall deformity. Symmetrical expansion. Patient has right upper chest permacath hemodialysis catheter in place LUNGS: Equal air entry with bilateral crackles CVS: Regular rate and rhythm, normal S1 and S2, no gallops, no murmurs, no rubs ABDOMEN: Soft, nontender. No hepatosplenomegaly, normal bowel sounds, no guarding or rigidity. Peg tube in place, and is receiving tube feedings in the form of Nepro at 34 ML per hour EXTREMITIES: No clubbing, no edema edema involving upper and lower extremities noted no cyanosis, 2+ pulses and upper and lower extremities. MUSCULOSKELETAL: Muscle strength and tone normal. SPINE: No scoliosis or deformity SKIN: No rashes CENTRAL NERVOUS SYSTEM: awake and alert, oriented 3, communicates by pounding words, responding appropriately moving all 4 extremities - Labs CBC & Chem 7: 11/07/20 03:12 11/07/20 03:12 Labs: Abnormal Lab Results - Last 24 Hours (Table) 11/06/20 11/06/20 11/07/20 Range/Units 11:16 17:10 00:00 RBC (3.80-5.40) m/uL Hgb (11.4-16.0) gm/dL Hct (34.0-46.0) % RDW (11.5-15.5) % Lymphocytes # (1.0-4.8) k/uL Eosinophils # (0-0.7) k/uL Sodium (137-145) mmol/L Chloride (98-107) mmol/L BUN (7-17) mg/dL Creatinine (0.52-1.04) mg/dL POC Glucose (mg/dL) 103 H 129 H 117 H (75-99) mg/dL Iron (50-170) ug/dL % Saturation (12.00-45.00) Total Bilirubin (0.2-1.3) mg/dL Total Protein (6.3-8.2) g/dL Albumin (3.5-5.0) g/dL 11/07/20 11/07/20 11/07/20 Range/Units 03:12 03:12 06:09 RBC 2.88 L (3.80-5.40) m/uL Hgb 8.0 L (11.4-16.0) gm/dL Hct 25.0 L (34.0-46.0) % RDW 16.9 H (11.5-15.5) % Lymphocytes # 0.7 L (1.0-4.8) k/uL Eosinophils # 0.8 H (0-0.7) k/uL Sodium 130 L (137-145) mmol/L Chloride 93 L (98-107) mmol/L BUN 48 H (7-17) mg/dL Creatinine 2.84 H (0.52-1.04) mg/dL POC Glucose (mg/dL) 101 H (75-99) mg/dL Iron 22 L (50-170) ug/dL % Saturation 9.02 L (12.00-45.00) Total Bilirubin 0.1 L (0.2-1.3) mg/dL Total Protein 5.6 L (6.3-8.2) g/dL Albumin 3.0 L (3.5-5.0) g/dL Assessment and Plan Plan: Assessment: #1. Acute hypoxic respiratory failure secondary to COVID-19 pneumonia/ARDS, transferred to the intensive care unit on 09/11/2020 and intubated and placed on mechanical ventilator on 09/11/2020. Patient received 1 dose of Remdesivir on 09/11/2020, however based on her quick progression of her hypoxic respiratory failure she received Tocilizumab 800 mg on 09/11/2020. Tracheostomy and PEG tube placed on 09/18/2020. Patient was successfully weaned from the ventilator support, she status post tracheostomy and PEG tube insertion, currently on 11/07/2020 patient is to 35% trach collar #2. Acinetobacter baumannii infection of the trach site. Completed a course of cefepime #3. Acute kidney injury related to ATN, nephrology has been consulted, ultrasound of the kidneys showed no evidence of hydronephrosis. Patient was initiated on hemodialysis on 09/14/2020. Permacath placed 09/20/2020. Patient is undergoing daily dialysis. #4. diabetes mellitus, insulin-dependent and the patient is currently on insulin sliding scale coverage with NovoLog #5. obesity with a BMI is down to 50 #6. hypotension, recovered and the patient is currently on no pressors #7. Corneal injury, punctate keratitis, left eye, improved #8. Anemia of chronic disease, requiring transfusions of packed red blood cells, today's hemoglobin is 8.0 #9. Generalized anxiety disorder. #10. hypertriglyceridemia, currently off propofol and will utilizing a combination of Precedex and fentanyl. #11. leukocytosis, resolved #13. encephalopathy/delirium , improved and resolved #14. History of hypertension Plan: Patient has remained stable on 35% trach collar Yesterday's chest x-ray has been reviewed Patient was dialyzed yesterday Breathing comfortably She has completed a course of cefepime No fever or chills, vitals signs are stable She is working with physical therapy Tolerating tube feedings Today's labs have been reviewed Discharge planning is in progress for discharge to [facility] today I performed a history & physical examination of the patient and discussed their management with my nurse practitioner, Renetta Moreira. I reviewed the nurse practitioner's note and agree with the documented findings and plan of care. Lung sounds are positive for diminished breath sounds. The findings and the impression was discussed with the patient. I attest to the documentation by the nurse practitioner. Time with Patient: Greater than 30
[2020-11-07 12:01] LABS: Glucose,Whole Blood 75 mg/dL (75-99)
--- NOTE | 2020-11-07 12:39 | P.PN ---
Subjective Progress Note Date: 11/07/20 CHIEF COMPLAINT: COVID-19 pneumonia HISTORY OF PRESENT ILLNESS: Patient is in the ICU for COVID-19 pneumonia and respiratory failure. She is status post tracheostomy and PEG tube placement with Dr. Zhang. Patient is tolerating tube feedings. She denies abdominal pain. She is having bowel movements. She is on 35% trach collar. She is able to communicate. She is scheduled for discharge to [facility] today. Afebrile. WBC 7.9. PHYSICAL EXAM: VITAL SIGNS: Reviewed. GENERAL: Well-developed in no acute distress. HEENT: No sclera icterus. Extraocular movements grossly intact. Moist buccal mucosa. Head is atraumatic, normocephalic. Patient has wound located and skin breakdown at tracheostomy site. ABDOMEN: Soft. Nondistended. Nontender. PEG tube site clean dry and intact NEUROLOGIC: Awake and opens eyes ASSESSMENT: 1. Acute hypoxic respiratory failure with prolonged mechanical ventilation due to COVID-19 pneumonia status post tracheostomy placement 2. Severe protein calorie malnutrition status post PEG tube placement 3. Pressure wound at tracheostomy site PLAN: -Continue tube feedings -Continue supportive care -Continue ICU management -Continue wound care at tracheostomy site -Patient is stable for discharge from surgical standpoint Physician Rn Appeals note has been reviewed by physician. Signing provider agrees with the documented findings, assessment, and plan of care. Objective - Vital Signs Vital signs: Vital Signs Temp 99.2 F 11/07/20 08:00 Pulse 101 H 11/07/20 11:00 Resp 16 11/07/20 10:00 BP 139/83 11/07/20 11:00 Pulse Ox 96 11/07/20 11:00 Intake & Output 11/06/20 11/07/20 11/07/20 18:59 06:59 18:59 Intake Total 638 498 280 Output Total 1300 0 0 Balance -662 498 280 Weight 87.6 kg 95.3 kg Intake: Oral 200 100 Tube Feeding 408 408 170 Blood Product 10 Other 30 90 Output: Urine 0 0 0 Hemodialysis 1300 Other: Voiding Method External Catheter # Voids 1 ABP, PAP, CO, CI - Last Documented Arterial Blood Pressure 136/76 - Labs CBC & Chem 7: 11/07/20 03:12 11/07/20 03:12 Labs: Abnormal Lab Results - Last 24 Hours (Table) 11/06/20 11/07/20 11/07/20 Range/Units 17:10 00:00 03:12 RBC 2.88 L (3.80-5.40) m/uL Hgb 8.0 L (11.4-16.0) gm/dL Hct 25.0 L (34.0-46.0) % RDW 16.9 H (11.5-15.5) % Lymphocytes # 0.7 L (1.0-4.8) k/uL Eosinophils # 0.8 H (0-0.7) k/uL Sodium (137-145) mmol/L Chloride (98-107) mmol/L BUN (7-17) mg/dL Creatinine (0.52-1.04) mg/dL POC Glucose (mg/dL) 129 H 117 H (75-99) mg/dL Iron (50-170) ug/dL % Saturation (12.00-45.00) Total Bilirubin (0.2-1.3) mg/dL Total Protein (6.3-8.2) g/dL Albumin (3.5-5.0) g/dL 11/07/20 11/07/20 Range/Units 03:12 06:09 RBC (3.80-5.40) m/uL Hgb (11.4-16.0) gm/dL Hct (34.0-46.0) % RDW (11.5-15.5) % Lymphocytes # (1.0-4.8) k/uL Eosinophils # (0-0.7) k/uL Sodium 130 L (137-145) mmol/L Chloride 93 L (98-107) mmol/L BUN 48 H (7-17) mg/dL Creatinine 2.84 H (0.52-1.04) mg/dL POC Glucose (mg/dL) 101 H (75-99) mg/dL Iron 22 L (50-170) ug/dL % Saturation 9.02 L (12.00-45.00) Total Bilirubin 0.1 L (0.2-1.3) mg/dL Total Protein 5.6 L (6.3-8.2) g/dL Albumin 3.0 L (3.5-5.0) g/dL
[2020-11-07] MEDS: ALPRAZolam 0.25 MG TAB PO PRN (14:08)
--- NOTE | 2020-11-07 14:08 | P.PN ---
Subjective Progress Note Date: 11/07/20 HISTORY OF PRESENT ILLNESS 35-year-old female patient of Dr. Arroyo with past medical history of type 2 diabetes comes in with acute shortness of breath associated with high light s ugars. Patient on admission was found to have a fever of 101.5 pulse rate 125 respiratory rate 20. Blood pressure 132/106. On chest x-ray obtained in the ER suggestive of bilateral infiltrates concerning for call with pneumonia. COVID PCR was positive. On admissions patient had an ABG with a pH of 7.14 pCO2 of 20, pO2 of 59, bicarb of 7. Patient's blood sugar on admission was 424 on assessment today patient's blood work patient had a sodium 135 potassium 5.4 chloride 123 bicarb less than 5 and creatinine 0.73. D-dimer was elevated on admission patient 9 28 patient given 1 L of IV fluids followed by normal saline running at 200 mL/h. Patient was positive for acetone on admission. She will anion gap closed and was switched to D5NS. Insulin drip was continued during the night and was switched to patient's home medication this morning. One dose of remdesiver was ordered. Apparently around noon, A- team was called on the patient secondary to hypoxia patient's oxygen saturation dropped to the 70s and 80s on 100% nonrebreather. Patient was switched to BiPAP on 18/12 and is doing better o FiO2 of 80%. ABG was obtained and ph was 7. 14 pCO2 of 28 bicarb of 7 pO2 of 17. Patient noted to have uncompensated metabolic acidosis with compensated respiratory alkalosis. Stat dose of 1 amp bicarb was given and followed by sodium bicarbonate drip. Insulin drip restarted. Patient's initiated on dexamethasone 6 mg IV twice a day. Potassium phosphate ordered as phosphorus is low. Patient's repeat blood gases suggest a pH of 7.25, CO2 32 pO2 of 72 bicarb 14. I will not normal saline at 100 mL/h as patient's anion gap has increased. Patient given 1 dose of 2 mg of morphine with improvement in respiratory rate. One dose of Ativan 0.5 mg was given. Xanax 0.25 twice a day along with Ativan 0.5 IV every 6 hours ordered for the patient. Vitals were evaluated patient pulse 129 [id number]. She was moved to the ICU. Precedex drip was initiated. Lopressor was initiated at 25 twice a day. Metoprolol tartrate 5 mg IV every 6 hours. Systolic blood pressure more than 160. Started chest x-ray was obtained and suggest stable bilateral consolidation suggestive of COVID-19 pneumonia. 09/12 patient is seen in the ICU is currently mechanically ventilated and sedated on vent settings of respiratory rate 36, tidal volume 375 FiO2 80% PEEP of 18.. Vital signs reviewed patient had a temp of 100.4 pulse 150 respiratory rate 36 oxygen saturation 95% on 80% on fio2 .'s labs are reviewed which patient had a d-dimer 1.84 that is increased to 14.3. Arterial Blood gas suggest ph 7.35, CO2 40, po2 62, . Her BMP suggest a sodium 135 potassium 3.7 chloride 112 bicarb 21 creatinine 1.57 for calcitonin is 3.5 CRP is increased from 8.78.2 LDH is increased to 2614. Patient remains on Pneumovax, propofol drip. Lovenox increased to 50 subcu twice a day. Patient received 2 L of IV fluids. Continue IV fluids at 100 mL/h. Bicarb drip discontinued patient initiated on Zosyn 3.375 every 8 hours. Continue insulin drip at 4 units per hour. Patient is currently in prone positioning 09/13: Patient evaluated in the ICU remains on Ventilation continues to be sedated, in prone position. Vent settings are respiratory rate 36, tidal vital 375, FiO2 70% PEEP of 18. ABG shows pO2 of 82, PCO2 of 39, pH is 7.19. Latest labs show WBC 11.1, hemoglobin 13.2, d-dimer still pending, but yesterday was up to 14.3. Creatinine up to 3.4, BUN 24 sodium 137, potassium 4.0. Patient's urine output has been low, nephrology on consult. Bicarb drip increased to 100 miles an hour, receiving another liter of normal saline, she did have a ultrasound that showed unremarkable bilateral kidneys. Repeat chest x-ray showed bilateral lung infiltrates that are stable. Anion gap has closed, will start Lantus 10 units at at bedtime Novolog every 6 hours. 09/14: Patient is seen in the ICU, still currently mechanically ventilated and sedated. She continues in the prone position. Her oxygen quickly drops if she is not in prone. Patient's kidney function has worsened. Laboratory values show creatinine of 4.87, BUN 33, LDH 2191, C-reactive protein 2.7. ABG shows pH 7.32, pO2 of 60, pCO2 43. Patient is making almost no urine overnight. Nephrology is following patient continues on cefepime for urinary tract infection, culture is still pending. Vascular has been consulted for placement of temporary hemodialysis catheter for plans for dialysis. 09/15: Patient evaluated in the ICU, continues to be mechanically ventilated and sedated on assist control ventilation rate of 36, tidal volume 375, FiO2 100% and PEEP of 18. ABG today shows pO2 58, pCO2 of 45, and pH 7.35. She continues on tube feedings. Yesterday patient underwent ultrasound-guided right internal jugular non-tunneled hemodialysis catheter placement. Patient underwent hemodialysis treatment last night and plans have another hemodialysis treatment today. She continues to make almost no urine. She continues on cefepime for antibiotic coverage, and continues on Decadron and Lovenox. 09/16: Patient seen on follow-up remains in the ICU mechanically ventilated and sedated. She continues on assist control rate of 36, tidal volume 375, FiO2 100% and PEEP of 20. PEEP had to be increased due to patient had to be in supine position for dialysis, will go back to prone position once dialysis is complete. ABG shows pH 7.32, pCO2 49, PaO2 61. Laboratory values showed WBC 11.2, hemoglobin 11, sodium 134, creatinine 4.44, BUN 38. Urine culture shows no growth, blood cultures show no growth to date. Repeat chest x-ray shows bilateral pleural effusions, correlate for ARDS, pulmonary edema, diffuse pneumonia, findings are stable from last exam. Patient does not require any pressors, blood pressure 133/57, heart rate 78. 5/16: Patient was evaluated in the ICU today for follow-up. She continues to be intubated and on mechanical ventilation. Current vent settings are tidal volume 375, FiO2 100% and PEEP of 20. ABG shows pH 7.37, pCO2 40, pO2 102. She continues with intermittent prone positioning. Patient continues to have almost no urine output, maintained on dialysis. Patient received dialysis yesterday without complication. Laboratory values revealed WBC 10.3, hemoglobin 10.4, sodium 132, potassium 3.1, BUN 33, creatinine 4.29, LDH 1913, C-reactive protein 1.3. Urine and sputum cultures are negative, blood cultures show no growth to date. Consult placed to dietary to start TPN[ ] 09/18: She remains in the intensive care unit intubated and on mechanical ventilation with tidal volume 375, FiO2 60 and PEEP of 20. Patient is being prone to daily at approximately 16 hours per day. Pulmonary medicine has added in Dr. Zhang to do PEG tube and trach today. Patient is not on vasopressors. Repeat blood work reveals WBC 12.6, hemoglobin 9.8, platelet count 212. Sodium 133, potassium 3.2, chloride 102, CO2 21, BUN 35 and creatinine 4.12. Blood sugar 126. Patient underwent hemodialysis yesterday with removal of 2 L and is scheduled again today with goal of 2-3 L and is scheduled again tomorrow. 09/19: She is scheduled for hemodialysis today and is off fentanyl temporarily. Patient is status post trach and PEG tube yesterday. And she remains on mechanical ventilation. Pulse ox 93-95%. She has been afebrile, heart rate 64, respiratory rate 36, blood pressure 115/50. Fentanyl is off to improve blood pressure for hemodialysis which is scheduled for today. Contacted vascular surgery about permanent hemodialysis catheter. Repeat blood work reveals WBC 14.3, hemoglobin 9.6, platelet count 200. D-dimer 6.48. LDH 1686. C-reactive protein 1.1. BUN 34 creatinine 3.81. Sodium 130, potassium 3.5, chloride 101, CO2 18. Blood sugars running between 101 198. Plan is to wean off Pneumovax today. Patient remains on insulin drip. Repeat chest x-ray reveals bilateral multifocal confluent opacities consistent with COVID-19. Some improved aeratio n periphery of the left lung and worsening opacities throughout the right lung. 09/20: She remains in the intensive care unit on mechanical ventilation. She has been afebrile, heart rate 65, respiratory rate 37, blood pressure 121/70, pulse ox 91-99%. Repeat blood work reveals WBC 14.5, hemoglobin 9.1, platelet count 216. D-dimer 6.13. Sodium 133, potassium 3.1, chloride 102, CO2 18, BUN 35 and creatinine 4.27. Blood sugars running between 128 and 143. LDH 1717. C- reactive protein 1.7. Patient remains on insulin drip which will be transitioned to NovoLog scale every 6 hours. Patient is scheduled for permanent hemodialysis catheter placement today with vascular surgery. Repeat chest x-ray reveals stable diffuse bilateral interstitial and airspace disease. Possible small right effusion. His work is following for transfer to group home care facility. Do not anticipate discharge until next week. 09/21: Patient is undergoing hemodialysis. She remains on mechanical ventilation with tidal volume 375, FiO2 down to 45 and PEEP was decreased to 15. Patient is continued on propofol, fentanyl drips. She is on tube feedings at goal. Patient was taken off insulin drip yesterday and on scale only but blood sugars are running in the 200s, Levemir scheduled at bedtime will be added. Other blood work reveals WBC 13.3, hemoglobin 8.7, platelet count 192. Sodium 137, potassium 3.6, chloride 107, CO2 18, BUN 34 and creatinine 4.21. Repeat chest x-ray is stable. 09/22: She remains in the intensive care on mechanical ventilation with tidal volume 375, FiO2 of 50 and PEEP of 10. Pulse ox is running 96%. She is afebrile, heart rate in the 50s, respiratory rate 36, blood pressure 100/64. Repeat blood work reveals WBC 16.5, hemoglobin 8.9, platelet count 213. Sodium 134, potassium 3.7, chloride 103, CO2 21, BUN 34 and creatinine 3.89. Blood sugars running in the 200s to 324. Levemir increased to 16 units at bedtime and continue NovoLog scale every 6 hours. Patient is on tube feedings at goal. She has a Haley catheter in with a scant amount of dark/brown urine. Fecal management system is in place. Repeat chest x-ray reveals diffuse bilateral airspace infiltrates persist unchanged. Patient is scheduled for hemodialysis tomorrow morning on Friday. 09/23: Patient remains on mechanical ventilation with tidal volume 3.75, FiO2 50 and PEEP of 10. groundwater monitoring technician sinus rhythm. She has no urine output. Fecal management system is in place. She is undergoing dialysis at this time with plan for removal of 2-1/2 L. She has been afebrile, heart rate in the 50s, respiratory rate 36, blood pressure 108/76 and pulse ox 89%. WBC 13.6, hemoglobin 9.1, platelet count 194. Sodium 136, potassium 3.0 and was replaced, chloride 106, CO2 21, BUN 49 creatinine 5.31. Blood sugars are running between 182 and this morning 194. Patient was still in the 200s and 300s. Levemir last evening was increased to 16 units. Patient remains on propofol and fentanyl drips. Lovenox was increased to 60 mg twice daily. 09/24: PEEP was increased today to 20, tidal volume is at 375 and FiO2 of 50%. Patient has been afebrile. She has been started on levo fed. Repeat chest x- ray reveals bilateral multifocal confluent opacities consistent with Covid 19 or ARDS redemonstrated. Nephrology will plan dialysis for tomorrow for 3 L. Patient remains on propofol fentanyl and Nimbex. WBC 12.5, hemoglobin 9.8, platelet count 161. D-dimer 13.3. Sodium 132, potassium 3.4, chloride 102, CO2 20, BUN 48 and creatinine 4.67. Blood sugars extremely elevated to 96-409. LDH 2217. 09/25: Patient remains in the intensive care unit on mechanical ventilation with tidal volume 375, FiO2 50 and PEEP of 20. Patient is afebrile, heart rate 61, respiratory rate 36, blood pressure 102/56, pulse ox 97%. Repeat blood work reveals WBC 9.3, hemoglobin 8.5 and platelet count 171. Sodium 130, potassium 3.7, chloride 100, CO2 20, BUN 61 creatinine 5.65. Blood sugars have been elev ated up to 455. Levemir increased to 20 units twice daily, NovoLog 5 units every 6 hours and continue NovoLog scale. Patient is scheduled for hemodialysis today. Repeat chest x-ray reveals bilateral multifocal and confluent opacities. Decadron and Lovenox dosing change by pulmonary. Patient is off norepinephrine. 09/26: Patient remains in the intensive care unit on mechanical ventilation with tidal volume 375, FiO2 50 and PEEP of 15. She has been afebrile, heart rate 91, blood pressure 114/68, pulse ox 99%. groundwater monitoring technician sinus rhythm. 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 Sodium 134, potassium 3.6, chloride 102, CO2 22, BUN 41 creatinine 4.21. Patient has improved blood sugars this morning running 150s and 160s. Diabetic medications were adjusted yesterday. Patient is awake and alert and interacting. Yesterday, patient had PICC line inserted by interventional radiology. Repeat chest x-ray reveals diffuse airspace infiltrates in both lung ann appear to progress slightly in the interval. 09/27: Patient remains in intensive care unit on mechanical ventilation with improvement of settings with tidal volume 375, FiO2 decreased to 40 and PEEP decreased to 10. Patient is on hemodialysis every other day and plan to remove 3 L today. Patient is more awake and alert. She is slow to respond but is able to follow simple commands. Blood sugars are running between 84 and 123. Repeat blood work reveals WBC 7.1, hemoglobin 8.1, platelets 152. Sodium 135, potassium 3.6, chloride 103, CO2 21, BUN 53 and creatinine 5.88. Repeat chest x-ray revealed cardiomegaly and pulmonary edema. Patient is on tube feedings:. Patient is not require vasopressors and is off sedation. Fecal management system remains in place for brown liquid stool. C. difficile was negative. 09/28: Patient remains on mechanical ventilation with tidal volume 375, FiO2 increased to 80 and PEEP increased to 18. Patient had a rough night was very anxious, no pain. Xanax 0.25 mg 3 times daily was added. There is concern for pulmonary embolism for which patient was started on heparin drip, she is unable to undergo CAT scan. Venous Doppler bilateral lower extremities was nondiagnostic due to extensive edema in obese patient but minimal imaging of the popliteal veins does show flow. Repeat echocardiogram has been ordered. Cefepime has also been ordered at 1 g IV piggyback every 24 hours as well as vancomycin, pharmacy dosing. Patient is back on fentanyl drip, propofol drip and norepinephrine. Blood sugars are elevated and insulin Levemir will be i ncreased to 25 mg twice daily. Ferrlecit infusion has been ordered by nephrology for 4 days. Patient is undergoing hemodialysis today.temperature max 100.2, heart rate 134, respiratory rate 34, blood pressure 120/65, pulse ox 94%. groundwater monitoring technician is sinus tachycardia. Repeat blood work reveals WBC 16.9, hemoglobin 9.7, platelet count 216. D-dimer 8.81. Sodium 134, potassium 3.8, chloride 99, CO2 25, BUN 43 and creatinine 5.36. Blood sugars in the 200s. AST 40. 09/29 Patient had declined more last 48 hours require more sedation, patient is doing hemodialysis, respiratory failure is quite bit worse this time. Patient was inquired the pain is well back on fentanyl drip. Her vent set up with PEEP is limited but higher. No new finding on culture and her chest x-ray continues shows diffuse infiltrate persistent although there is a moderate interval improvement. 09/30 patient's was seen and evaluated. PEEP was reduced to 11 as patient is maintaining good saturation at the current vent settings. 10/01 patient was seen at bedside. She is currently on assist control rate of 28 white tidal volume 350 FiO2 50% and PEEP of 10 which has been reduced by pulmonary as patient name cleaning her oxygen saturation. Arm blood gas was obtained with a pH of 7.35 pCO2 37 pO2 of 63. She remains hemodynamically stable with no need for pressors. Labs were reviewed patient's BUN is 29 crea tinine 3.93 glucose 122 albumin 2.2 sodium 131 chloride 19 hemoglobin is downtrending with a Hb of 7.3 no leukocytosis 7.1. Patient's urine output is minimal at this time. Her rate has increased to 129 and is currently on positive fluid balance even with dialysis. Last dialysis was done yesterday. Continue enteral feeding currently at goal. Antibiotic has been discontinued and continues to remain on DEXA methicillin 4 mg IV daily. 10/02 patient continues to be on trach support with mechanical ventilation. Patient was evaluated by international operations manager and was switched to VC control as patient was noted to be double stacking on and off throughout the night. Respiratory rate continue to 28 tidal volume increased to 400 with a PEEP for Dr. Downey. Patient is maintaining oxygen saturation 91% on the current setting. According to the nurse bedside patient saturation drops significantly or she is moved or her sedation is dropped. Patient is currently on propofol drip, fentanyl drip. She did underwent dialysis today and was able to maintain her low pressure without the need of pressors. Labs reviewed today suggest a WBC of 6.7 hemoglobin of 7.0 and d-dimer 3.9 bicarb 17 BUN 38 creatinine 4.8. LDH is 964. Sodium 1:30 likely secondary to volume overload. Urine sodium and urine osmolality ordered. Patient's glucose this morning is 146. Continue to remain on enteral feeding. Urine output is reduced. Fall catheter will be placed today. Continue to remain on dialysis. 10/03: Patient remains on mechanical ventilation and is back on propofol and fentanyl drips. Patient is currently on VC control with tidal volume 400, FiO2 55 and PEEP of 12. Patient still is not making any urine and is dialysis dependent with next treatment planned for tomorrow with removal of 3-3-1/2 L. PEG tube feedings are at goal. Fecal management system remains in place. At the time of evaluation, patient is off levophed. Repeat chest x-ray reveals stable diffuse bilateral airspace disease correlate for ARDS, pulmonary edema or diffuse pneumonia. Temperature max last evening was 101. Temperature currently 99, heart rate 106, respiratory rate 32, blood pressure 101/50, pulse ox 86%. Repeat blood work reveals WBC 6, hemoglobin 7.4, platelet count 160. D-dimer 4.05. Sodium 133, potassium 3.5, chloride 100, CO2 23, BUN 31 creatinine 3.8. Blood sugars are running between 100 and 170. Ferritin 1514. Liver function test normal. LDH 1016, C-reactive protein 13.6. Prognosis remains guarded. 10/04: Patient remains intubated on mechanical ventilation with tidal volume 400, FiO2 65, PEEP of 14. Patient continues to run fevers and repeat blood culture and urine and urine culture ordered for today. Haley catheter has been removed this patient has no significant urine output at about 20 mL per shift. BladderScan is monitored for greater than 300 and the patient is straight cathed. Hemoglobin is 6.8 and she has been ordered 41 unit of packed RBCs today. She is currently on propofol and fentanyl drips. She is scheduled for hemodialysis today. WBC 4.5, hemoglobin 6.8, platelet count 151. D-dimer 3.28. Sodium 132, potassium 4.1, chloride 100, CO2 22, BUN 37 creatinine 4.74. Blood sugars running between 97 and 110. Ferritin 1801. LDH 859. C-reactive protein 14.4. Chest x-ray reveals correlate for pneumonia, edema, ARDS. Prognosis remains guarded. 10/05: Patient remains in intensive care unit currently on mechanical ventilation with tidal volume 400, FiO2 was increased to 100 and PEEP is at 14. She continues to run fevers which have worsened with temperature max 103.1. She has been tachycardic in the 130s, blood pressure is marginal but not on vasopressors. Pulse ox currently 92%. Repeat blood work reveals WBC 5.5, hemoglobin 7.6, platelet count 190. D-dimer 2.7, ferritin 1770, LDH 932, C- reactive protein 21.4. Blood sugars are running between 100 1669. Electrolytes are normal. BUN 27 and creatinine 3.79. Pancultures were done yesterday including a straight cath for urine culture, sputum culture and blood culture. Arterial line was removed as well as midline. She is currently on propofol, fen tanyl and started on Nimbex today. 10/06: Patient remains in the intensive care unit. Today patient in prone position and remains on mechanical ventilation with tidal volume 350, FiO2 65 and PEEP of 14. Her last documented fever was yesterday at 2 PM. Heart rate is in the 120s, respiratory rate 32, pulse ox 88-92%. CBC is unremarkable. Electrolytes are normal. BUN 30 creatinine 2.93. Blood sugars are running between 135 and 164. Cultures from October 04: Blood culture no growth, sputum culture finalized, urine culture finalized. Catheter tip culture is in process. Repeat chest x-ray shows bilateral interstitial infiltrates. Patient is on tube feedings of Nepro at goal of 30 ML's per hour. Patient underwent dialysis yesterday and is scheduled for repeat dialysis today. 10/07: Patient maintains in the intensive care unit intubated and on mechanical ventilation. She is receiving hemodialysis this morning has been every day. Plan is to remove 2-1/2 L today. Vent settings have changed today with tidal volume 350, FiO2 was increased to 100% and PEEP remains at 14. She has been continued on Nimbex, fentanyl, norepinephrine and propofol. Plan is to prone position patient following dialysis. Repeat chest x-ray reveals worsening interstitial infiltrates. BUN is 26 and creatinine 2.59. LDH 955, C-reactive protein 22.1. Prognosis remains poor. 10/08: Patient remains in intensive care unit intubated and on mechanical ventilation with tidal volume 350, FiO2 60, PEEP of 14. She is pronating today. She is scheduled for hemodialysis on a daily basis. She has been afebrile, heart rate 112, respiratory rate 36, blood pressure 161/88, pulse ox 93%. Repeat blood work reveals WBC 9.9, hemoglobin 9.1, platelet count 320. Sodium 133, potassium 5.3, chloride 100, CO2 20, BUN 29 creatinine 2.44. Blood sugar running between 102 and 139. LDH 1026, C-reactive protein 19.7. 10/09: Patient is undergoing dialysis this morning. She continues to be intubated and on mechanical ventilation with tidal volume 350, 270 and PEEP of 14. Patient is also on propofol, Nimbex, norepinephrine and fentanyl drips. Repeat chest x-ray reveals persistent bilateral multifocal and confluent opacities consistent with Covid 19. She is afebrile, heart rate 116, respiratory rate 36, blood pressure 120/65, pulse ox 91%. Repeat blood work reveals WBC 5.4, hemoglobin 9.2, platelet count 216. D-dimer 2.67, ferritin 2568, LDH 794, C- reactive protein 13.9. Blood sugars have been running 90-104. Creatinine 1.64. She is on daily dialysis treatment. 10/10: She remains in the intensive care unit. She is now out of isolation as a repeat Covid test came back negative. She remains on mechanical ventilation with tidal volume 350, FiO2 70 and PEEP of 14. Patient is also on Nimbex, propofol, norepinephrine, fentanyl drips. She is on PEG tube feedings at goal and tolerating well. Repeat blood work reveals WBC 7.8, hemoglobin 7.5, platelet count 267. Sodium 139, potassium 3.9, chloride 109, CO2 20, BUN 20 creatinine 1.29. Blood sugars are running between 76 and 102. Scheduled Aiyana Log decreased to 3 units. Repeat chest x-ray reveals moderate cardiomegaly and continued pulmonary edema. Slight interval improvement. Patient is continued on daily hemodialysis. 10/11: Patient remains in intensive care unit on mechanical ventilation with tidal volume 325, FiO2 70, PEEP 14. She is currently being prone. She underwent hemodialysis this morning with removal of 4 L of fluid with plan to continue daily treatment. She is currently on Nimbex, fentanyl and propofol. No vasopressor at this time. Fecal management system remains in place. She is on tube feedings currently at hold due to prone positioning. Patient has been afebrile, heart rate 116, respiratory rate 36, blood pressure 100/58, pulse ox 93-96%. Repeat blood work reveals WBC 9.3, hemoglobin 8.1, platelet count 276. Sodium 136, potassium 4.3, chloride 103, CO2 20, BUN 20 creatinine 1.14. Blood sugars running between 133 and 202. 10/12: Patient remains in the intensive care unit. She is undergoing hemodialy sis this morning. She's been afebrile, heart rate in the 120s, respiratory rate 32, blood pressure 102/65. She is not on vasopressors. She is continued on Nimbex, fentanyl and propofol. Vent settings are currently tidal volume 325, FiO2 70, PEEP 14. Total platelet count 273. Sodium 133, potassium 4.7, chloride 100, CO2 19, BUN 21 creatinine 0.91. Blood sugars running between 121 and 143. 10/13: Patient remain in the ICU she is on hemodialysis daily, she is still on the vent with a PEEP of 14 and FiO2 of 70. Her oxygenation is marginal pulse rate still high. Patient had scratched cornea was seen in ophthalmology decided to keep doing eyedrops along with eye patch at this point. Prognosis still very bad this point. 10/14: She remains on mechanical ventilation with tidal volume 325, FiO2 70% and PEEP of 14. She did require label fed last evening for about 6 hours. She did not tolerate pronating yesterday. She is undergoing dialysis this morning with plan for removal of 4 L. Blood sugars have been low and IV fluids changed to D10 until blood sugars have recovered. Levemir and scheduled NovoLog discontinued. Patient is on tube feedings at goal there's been no change in th is. 10/15 patient remains on mechanical ventilation in the intensive care unit. FiO2 still at 70%, PEEP of 18. Blood sugars have improved since medications were adjusted. White blood cells 33.9, hemoglobin 8.5, sodium 135, BUN 19, creatinine 0.96. Patient to receive dialysis again today. Patient did run a low-grade fever throughout the night and pro calcitonin level is ordered. Chest x-ray showed continued diffuse bilateral airspace disease. Patient remains on tube feedings at goal. 10/16: Patient remains on mechanical ventilation with tidal volume 300, FiO2 70, PEEP of 15. Fecal management system is out. She is currently on low dose of norepinephrine. She is also on fentanyl drip, propofol drip, rocuronium drip. Heart rate is running in the 130s, sinus rhythm, blood pressure 121/63, pulse ox 95%. Patient is been afebrile. Repeat blood work reveals WBC 18.9, hemoglobin 7.5, platelet count 291. Sodium 135, potassium 4.2, chloride 101, CO2 19, BUN 25 and creatinine 1.36. Blood sugars are running between 143 and 199. Patient is on scale insulin only. Repeat chest x-ray reveals persistent bilateral multifocal and completed opacities consistent with Covid 19. 10/17: Patient remains on mechanical ventilation with tidal volume 300, FiO2 50, PEEP of 14. She is currently receiving hemodialysis. The patient is having yellow-colored drainage from the trach site. This is going to be culture today. Repeat blood work reveals WBC of 24, hemoglobin 7.3 and platelet count 310. Sodium 136, potassium 4.1, chloride 101, CO2 19, BUN 24 creatinine 1.43. Blood sugar 139. Capillary blood glucose running 147 and 189. Repeat chest x-ray is unchanged. Patient had increased respiratory rate 40s and 50s with oxygen saturation of 87 and now was increased and Seroquel added this morning. Prognosis remains guarded. 10/18: Patient remains on mechanical ventilation with tidal volume 300, FiO2 60, PEEP has been decreased to 12. Patient will need a PEEP of 8 in order to tra nsfer to long-term care. She is currently on fentanyl drip and Precedex drip. Patient is tracking when her name is stated. She seems to be slightly improved today. Patient has been afebrile, heart rate 106, respiratory rate 32, blood pressure 110/61, pulse ox 98%. Repeat blood work reveals WBC 30.3, hemoglobin 7.2, platelet count 350. Sodium 139, potassium 4.2, chloride 103, CO2 20, BUN 23 creatinine 1.79. Blood sugars are increasing running up 299. Patient will be placed on Levemir. Secretions from tracheotomy sent for culture and in process. She is currently undergoing hemodialysis. 10/23: Patient remains in the intensive care unit on mechanical ventilation with tidal volume 300, FiO2 65 and PEEP of 10. groundwater monitoring technician has been in a sinus rhythm. Patient does open her eyes and appears to be tracking. Blood sugars have been elevated. Levemir will be increased to 40 units daily and scheduled NovoLog increased to 12 units and continue NovoLog every 6 hours per scale. Patient is receiving hemodialysis today. She is not currently on vasopressors. Patient is on Precedex drip only. Antibiotics in the form of cefepime were started on October 18. Patient has been afebrile, heart rate 126, respiratory rate 36, blood pressure 163/105. Pulse ox 91%. Repeat blood work reveals WBC 16.0, hemoglobin 7.2, platelet count 208. Electrolytes are within normal limits. BUN 62 and creatinine 2.43. Blood sugars running between 259-321. Most recent blood culture from [facility] 20 is no growth at 24 hours. Repeat chest x-ray reveals cardiomegaly and persistent bilateral pulmonary edema. 10/24: Patient is awake, eyes are open and tracking, she is able to follow simple commands. Severe generalized weakness noted. Precedex gtt has been discontinued. Patient is receiving hemodialysis. Her blood sugars have remained elevated for which Levemir increased to 25 units twice daily along with 15 units of NovoLog every 6 hours along with scale. Tidal volume 330, FiO2 60, PEEP of 8. district manager primary care sales and medical social worker following closely. Anticipate possible discharge by the end of next week to long-term care facility. 10/25: Patient remains in the intensive care unit on mechanical ventilation. Tidal volume 350, FiO2 60, PEEP 8. She is receiving hemodialysis this morning. Her heart rate remains elevated in the 130s. Pulmonary as started her on Cardizem at 60 mg 3 times daily which has not had any improved effect. We'll start the patient on Lopressor 25 mg twice daily. Patient has been afebrile, heart rate respiratory rate 32, blood pressure 151/91, pulse ox 98%. Patient is been transfuse 1 unit of packed RBCs today. Patient's mental status is improving and patient is able to follow simple commands. WBC 12.2, hemoglobin 6.3, platelet count 196. Sodium 135 otherwise looked lites are normal, BUN 48 creatinine 1.99. Blood sugars are running between 120 and 172. Levemir has been increased to 30 mg twice daily continue 15 units of NovoLog every 6 hours with scale. 10/26: Patient remains in intensive care unit, on mechanical ventilation with tidal volume 375, FiO2 50, PEEP of 8. Patient's heart rate remains elevated 120s and Lopressor increased to 50 mg twice daily. Patient seems to be quite anxious and depressed. We will decrease Seroquel to 50 mg twice daily and start patient on Lexapro. Patient received her first dose of Xanax this morning but this did not seem to help heart rate either. She has been afebrile, heart rate 128, blood pressure 149/79, pulse ox 93%. Repeat hemoglobin 7.3. Sodium 135, potassium 3.9, chloride 90, CO2 30, BUN 45 and creatinine 1.94. Blood sugar are improved running between 117-194. We will make further adjustments to insulin and to increase long-acting to 35 units twice daily and decrease NovoLog scheduled to 7 units and continue NovoLog scale. There are problems with patient's trach and consequently placed with [facility]. General surgery to reevaluate trach. 10/27: Patient is complaining of nausea today. Concerned that this is related to Lexapro. We will further decrease Seroquel to 50 mg at bedtime. Patient is being bladder scanned and last bladder scan wasn't 125 mL. She does not have Haley catheter. No fecal management system. She is having a bowel movement about 3 per day. Plan is for CPAP trial today. She is currently on mechanical ventilation with tidal volume 375, FiO2 50 and PEEP of 8. She has been afebrile, heart rate 105 which is much improved from the last few days. Blood pressure 145/88, pulse ox 94%. There is a new consult in place for Dr. Clemente regarding exchanging the trach and possible debridement at site. WBC 11.4, hemoglobin 8.2, blood count 218. Sodium 136, potassium 4.1, chloride 97, CO2 31, BUN 47 creatinine 1.97. Blood sugars running between 129 and 204. We have changed long acting insulin to 35 units twice daily and continue NovoLog 7 units every 6 hours and scale every 6 hours. Nephrology may be decreasing frequency of dialysis treatments. Anticipate probable discharge to long-term care next week. 10/28: Patient was complaining of nausea today which has resolved. CPAP trial will continue today. She is currently on mechanical ventilation with a tidal volume 375, FiO2 of 50, PEEP of 8. She is afebrile, heart rate 108 which continues to show improvement. Blood pressure 133/87, pulse ox 99%. Patient is able to follow commands. And answers appropriately with nodding her head. WBC 10.5, hemoglobin 8.0, potassium 4.6, BUN 46, creatinine 1.96. Patient is currently receiving hemodialysis. 10/29: Patient was found sitting up in bed. Able to answer some questions appropriately. Utilizing kim. Able to follow commands. Ann over elevated blood sugars. Levemir 35 units twice a day will continue at this with a 7 unit coverage. Patient remains afebrile. Heart rate 102, respirations 29, blood pressure 124/74, pulse ox 97% on mechanical ventilation. Mechanical ventilation settings with a tidal volume 375, FiO2 of 50 and a PEEP of 8. Family has been into see patient. Hemodialysis will be held today. 10/30: Patient remains in the ICU on mechanical ventilation. She is not requiring pressure support. She is on CPAP support. She is receiving hemodialysis this morning with plan to start a Friday schedule this week. Blood sugars are stable and running between 140 and 184. She is on tube feedings at goal and having bowel movements every 12 hours. Repeat blood work reveals WBC 8.9, hemoglobin 10.2, platelet count 258. Sodium 133, potassium 5.0, chloride 97, CO2 23, BUN 69 creatinine 2.67. 10/31: Patient is seen today in intensive care unit. She remains on mechanical ventilation with tidal volume 375, FiO2 45 of PEEP of 5. Patient is found sitting in a chair working with physical therapy. Patient is noted to have left arm weakness without pain and good sensation. She is not receiving dialysis today and will be started on Friday regime. Patient's heart rate is better controlled in the 80s, blood pressure 113/65, pulse ox 99%. Patient is been afebrile. Patient has been on cefepime. Repeat blood work reveals WBC 9.3, hemoglobin 6.9 and patient is transfused 1 unit of packed RBCs today. Platelet count 248. Electrolytes are within normal range, BUN 38 and creatinine 2.04. Her blood glucose running between 130 and 193. AST 38. Social work is working with the daughter regarding discharge planning. 11/01: A she was undergoing dialysis with plan for 3 L removed today and dialysis is scheduled Friday. She is in bed and appears to be comfortable. She is able to talk and express herself and is cognitively intact. She remains on mechanical ventilation. She has been afebrile, heart rate 107, blood pressure 115/85, pulse ox 99%. Repeat blood work reveals WBC 8.5, hemoglobin 7.5, platelet count 278. Sodium 136, potassium 4.8, chloride 100, CO2 27, BUN 55 creatinine 2.81. Blood sugar running between 114 and 185. Ca lcium 10.3, total bilirubin 0.2, AST 34, ALT 34, alkaline phosphatase 144. Social work is working on discharge planning which will be to [facility], [facility] or [facility]. 11/02: Patient remains in the intensive care unit on mechanical ventilation with tidal volume 375, FiO2 40, PEEP of 5. Patient's mental status continues to be improved. She has been afebrile, heart rate 97, blood pressure 144/86, pulse ox 98%. Repeat blood work reveals WBC 8.3, hemoglobin 7.2, platelet count 255. Sodium 135, potassium 4.5, chloride 98, CO2 20, BUN 42 and creatinine 2.36. Blood sugars are running between 124 278. She is scheduled for hemodialysis tomorrow with plan for 4 L to be removed. Social work is working on discharge plan and once patient has been accepted and insurance authorization is obtained if needed, patient will be discharged. 11/03: Patient remains in intensive care unit on mechanical ventilation patient is currently on pressure support of 15, CPAP of 5 and FiO2 of 40%. A trach collar is to be attempted today in order to get the patient discharged to group home care facility. Land is for medical [place] on Friday if patient continues to improve. He has been afebrile, heart rate in the 80s, blood pressure 90/57, pulse ox 100%. Repeat blood work reveals WBC 7.5, hemoglobin 6.9, platelet count 255. Sodium 133, potassium 5.1, chloride 97, CO2 27, BUN 59 creatinine 3. Blood sugars up and running 117 164. 11/04 patient remains in ICU, this is day number 55, pulmonary is following closely, they have recommended fenestrated trach, for which Dr. warren is going to perform, patient is anticipated to be discharged to long-term care facility, most likely early next week. She is stable, with no new fevers, antibiotics has been completed, blood sugars are stable, hemoglobin 7.7, WBC 8.5, blood sugars running between 145-150, creatinine of 2.34 11/05: Patient remains in ICU, trach collar replaced by Dr. Zhang this a.m., patient's communicating with handwritten communication mentions that she has back pain, on IV Dilaudid still, we'll replace Gould 7.5, also cannot sleep, muscle relaxants started with cyclobenzaprine, where finalizing discharge planning, to subacute rehab long-term care no fever no chills, coughing a lot, with mucus production, suctioning on the trach when necessary by nursing staff, 11/06: Patient is still having refractory sleep, wakes up with chills and sweats, also. Alternating hot and cold, iron is suspected to be low, hemoglobin of 7.2, check for iron studies, on Ativan and aspirin, start melatonin 6 mg at bedtime, might need Zestril, however is on Seroquel. We'll going to increase Seroquel to 75 mg blood sugars are stable, no change in program today, pain control is better, using Gould 7.5. 11/07: Patient remains in the intensive care unit on trach collar at FiO2 of 35%, flow rate of 8. Patient states that she slept better last evening. We will add in consult for speech therapy to evaluate if patient can start on oral food. She is currently on tube feedings at goal. Repeat blood work reveals WBC 7.9, hemoglobin 8.0, platelet count 238. Sodium 130, potassium 3.9, chloride 93, CO2 28, BUN 48 creatinine 2.84. Capillary blood glucose running between 75 and 129. Iron 22, TIBC 244, iron saturation 9.0 to. Total bilirubin 0.1, AST is 26, ALT 27, alkaline phosphatase 115. TSH 1.7. REVIEW OF SYSTEMS Constitutional: No fever, no chills, no night sweats. No weight change. Profound weakness, + significant fatigue no lethargy. Reported daytime sleepiness. EENT: No headache. No loss of vision. No loss of Hearing. No nasal drainage or congestion. No epistaxis. No sore throat. Lungs: No shortness of breath, cough, no sputum production. No wheezing. Cardiovascular: No chest pain, no lower extremity edema. No palpitations. No paroxysmal nocturnal dyspnea. No orthopnea. No lightheadedness or dizziness. No syncopal episodes. Abdominal: No abdominal pain. No nausea, vomiting. No diarrhea. No constipation. No bloody or tarry stools. No loss of appetite- peg tube. Genitourinary: No dysuria, increased frequency, urgency. No urinary retention. Minimal urine production Musculoskeletal: No myalgias. Noted muscle weakness, noted gait dysfunction, no frequent falls. No back pain. No neck pain. Integumentary: Positive wound-decubitus ulcer, trach wound. No rash or pruritus. No unusual bruising. No change in hair or nails. Neurologic: No aphasia. No facial droop. Noted change in mentation-back to baseline. No head injury. No headache. No paralysis. No paresthesia. Psychiatric: suspected depression. positive anxiety. Endocrine: Noted abnormal blood sugars-stable and monitored. PHYSICAL EXAMINATION Gen: This is is a 35-year-old black female, patient is on mechanical ventilat ion, and sitting in ICU bed undergoing HD. HEENT: Head is atraumatic, normocephalic. Pupils equal, round. Sclerae is anicteric. Eyes are open and tracking. Tracheostomy midline. NECK: Supple. No JVD. No lymphadenopathy. No thyromegaly. LUNGS: Lung sounds are clear to auscultation. No intercostal retractions. HEART: Regular rate and rhythm. No murmur. groundwater monitoring technician sinus tachycardia. ABDOMEN: Soft. Bowel sounds are present. No masses. No tenderness. EXTREMITIES: Trace bilateral pedal edema. No calf tenderness. NEUROLOGICAL: Patient is awake, alert, oriented x3 and able to follow commands, significant weakness. ASSESSMENT AND PLAN 1. Acute hypoxic respiratory failure secondary to Covid 19 pneumonia and possible bacterial pneumonia. Patient was intubated on September 11. She is status post 1 dose of Remdesivir and 1 dose of Tocilizumab. Continue Ventolin inhaler 4 times daily, Lovenox 30 mg subcu daily, supplements. Status post PEG tube and trach. Completed antibiotics. 2. Acute diabetic ketoacidosis secondary to Covid 19 pneumonia, uncontrolled with hyperglycemia. Levemir 35 units twice daily and scheduled NovoLog increased to 7 units every 6 hours and continue NovoLog scale every 6 hours. 3. Metabolic encephalopathy secondary to Covid 19 and DKA. 4. Sepsis and septic shock secondary to Covid 19 pneumonia with multiorgan failure. Continue as in #1. 5. Acute metabolic acidosis secondary to acute DKA, Covid 19 and acute kidney injury. Renvela 1600 mg q6h. 6. Diabetes mellitus type 2 uncontrolled with A1c 13.6. Continue as above. 7. Hypophosphatemia status post replacement. 8. Hyperkalemia secondary to DKA, resolved. 9. Sinus tachycardia secondary to sepsis, volume deficiency. Patient is on Cardizem 60 mg 3 times daily, and Lopressor 50 mg twice daily. 10. Acute kidney injury secondary to ATN secondary to Covid 19 and DKA. Continue hemodialysis on Friday. 11. Citrobacter pneumonia versus MRSA pneumonia. Completed course of antibiotics. 12. Hypertension. 13. Morbid obesity with BMI of 53. 14. Situational depression and anxiety. Seroquel 75 mg at bedtime, continue Le xapro 10 mg daily and Xanax 0.25 mg twice daily as needed. 15. DVT prophylaxis. Lovenox. 16. GI prophylaxis. Protonix 40 mg IV push daily. 17. Stage IV pressure ulcer to trach site. Currently utilizing absorptive silver dressing. 18. Stage II decubitus ulcer to coccyx. 19. Critical illness polyneuropathy and myopathy. Continue physical therapy. 20. Anemia of chronic disease. Transfuse total of 3 units of packed RBCs, continue Aranesp 40 g every 7 days. CODE STATUS: Full code Prognosis guarded. DISCHARGE PLAN To be determined Impression and plan of care have been directed as dictated by the signing physician. Kimberly Boswell nurse practitioner acting as scribe for signing physician. Objective - Vital Signs Vital signs: Vital Signs Temp 98.7 F 11/07/20 04:00 Pulse 110 H 11/07/20 07:00 Resp 19 11/07/20 07:00 BP 115/71 11/07/20 07:00 Pulse Ox 95 11/07/20 07:00 Intake & Output 11/06/20 11/07/20 11/07/20 18:59 06:59 18:59 Intake Total 638 498 34 Output Total 1300 0 0 Balance -662 498 34 Weight 87.6 kg 95.3 kg Intake: Oral 200 Tube Feeding 408 408 34 Other 30 90 Output: Urine 0 0 0 Hemodialysis 1300 Other: Voiding Method External Catheter # Voids 1 ABP, PAP, CO, CI - Last Documented Arterial Blood Pressure 136/76 - Labs CBC & Chem 7: 11/07/20 03:12 11/07/20 03:12 Labs: Abnormal Lab Results - Last 24 Hours (Table) 11/06/20 11/06/20 11/07/20 Range/Units 11:16 17:10 00:00 RBC (3.80-5.40) m/uL Hgb (11.4-16.0) gm/dL Hct (34.0-46.0) % RDW (11.5-15.5) % Lymphocytes # (1.0-4.8) k/uL Eosinophils # (0-0.7) k/uL Sodium (137-145) mmol/L Chloride (98-107) mmol/L BUN (7-17) mg/dL Creatinine (0.52-1.04) mg/dL POC Glucose (mg/dL) 103 H 129 H 117 H (75-99) mg/dL Iron (50-170) ug/dL % Saturation (12.00-45.00) Total Bilirubin (0.2-1.3) mg/dL Total Protein (6.3-8.2) g/dL Albumin (3.5-5.0) g/dL 11/07/20 11/07/20 11/07/20 Range/Units 03:12 03:12 06:09 RBC 2.88 L (3.80-5.40) m/uL Hgb 8.0 L (11.4-16.0) gm/dL Hct 25.0 L (34.0-46.0) % RDW 16.9 H (11.5-15.5) % Lymphocytes # 0.7 L (1.0-4.8) k/uL Eosinophils # 0.8 H (0-0.7) k/uL Sodium 130 L (137-145) mmol/L Chloride 93 L (98-107) mmol/L BUN 48 H (7-17) mg/dL Creatinine 2.84 H (0.52-1.04) mg/dL POC Glucose (mg/dL) 101 H (75-99) mg/dL Iron 22 L (50-170) ug/dL % Saturation 9.02 L (12.00-45.00) Total Bilirubin 0.1 L (0.2-1.3) mg/dL Total Protein 5.6 L (6.3-8.2) g/dL Albumin 3.0 L (3.5-5.0) g/dL
--- NOTE | 2020-11-07 16:32 | FL ---
EXAMINATION TYPE: FL barium swallow w video DATE OF EXAM: 11/07/2020 MODIFIED SWALLOW / DEGLUTITION STUDY CLINICAL HISTORY: Dysphagia. TECHNIQUE: Deglutition study is performed utilizing thin liquid barium, honey and nectar thick liqui d barium, and barium coated cracker. COMPARISON: None. FINDINGS: The oral and pharyngeal phases show satisfactory initiation and propagation with all modali ties tested. Normal mastication is seen with solid modalities tested. There is no evidence of penet ration or aspiration with any modality tested. No significant pharyngeal residue was appreciated. IMPRESSION: Normal deglutition study. Please refer to speech therapist notes for further details if necessary.
[2020-11-07 16:53] LABS: Glucose,Whole Blood 67 mg/dL (75-99)
[2020-11-07 17:16] LABS: Glucose,Whole Blood 81 mg/dL (75-99)
[2020-11-07] MEDS: CYCLOBENZAPRINE 10 MG TAB PO SCH (22:07)
[2020-11-07 22:23] LABS: Glucose,Whole Blood 75 mg/dL (75-99)
[2020-11-07] MEDS: QUEtiapine 25 MG TAB PO SCH (22:48)
[2020-11-08] MEDS: NYSTATIN 100,000 UNIT/ML SUSP 500,000 UNIT/5 ML CUP PO SCH ×5 (00:01→23:59)
[2020-11-08] MEDS: SEVELAMER 800 MG TAB PO SCH ×5 (00:01→23:59)
[2020-11-08] MEDS: diphenhydrAMINE 50 MG/ML 1 ML VIAL IVP PRN ×3 (03:20→17:40)
[2020-11-08] MEDS: ALPRAZolam 0.25 MG TAB PO PRN (06:08)
[2020-11-08] MEDS: HYDROcodone/APAP 7.5-325MG 1 EACH TAB PO PRN ×4 (06:08→23:58)
[2020-11-08 06:20] LABS: Glucose,Whole Blood 76 mg/dL (75-99)
[2020-11-08] MEDS: INSULIN ASPART (NovoLOG) 100 UNIT/ML VIAL SQ SCH ×6 (06:23→17:52)
[2020-11-08] MEDS: ALBUTEROL HFA INHALER INHALATION SCH ×4 (08:07→21:37)
[2020-11-08] MEDS: INSULIN DETEMIR (LEVEMIR) 100 UNIT/ML SYR SQ SCH ×2 (08:28→21:01)
[2020-11-08] MEDS: CHLORHEXIDINE GLUCONATE 15 ML CUP MUCOUS MEM SCH ×2 (08:53→21:01)
[2020-11-08] MEDS: DILTIAZEM ORAL 60 MG TAB PO SCH ×3 (08:53→21:00)
[2020-11-08] MEDS: ENOXAPARIN 30 MG/0.3 ML SYRINGE SQ SCH (08:53)
[2020-11-08] MEDS: METOPROLOL TARTRATE 50 MG TAB PO SCH ×2 (08:53→21:00)
[2020-11-08] MEDS: PANTOPRAZOLE 40 MG/10 ML VIAL IVP SCH ×2 (08:53→21:01)
[2020-11-08] MEDS: ESCITALOPRAM 10 MG TAB PO SCH (08:54)
[2020-11-08] MEDS: HYDROPHILIC CREAM 180 GM TUBE TOPICAL SCH (08:55)
[2020-11-08] MEDS: NYSTATIN 100,000 UNIT/GM POWD 15 GM TOPICAL SCH ×3 (08:55→21:02)
[2020-11-08] MEDS: ASCORBIC ACID 500 MG TAB PO SCH ×2 (08:55→21:00)
--- NOTE | 2020-11-08 09:15 | P.PN ---
Subjective Patient is seen in follow-up for acute kidney injury. Oliguric. Status post tracheostomy and PEG tube placement this admission. Receiving tube feeding. Off vent. No changes overnight. Awake and alert. No active complaints. Vital signs: Stable. General: The patient appeared well nourished and normally developed. HEENT: Tracheostomy noted. LUNGS: Breath sounds decreased. HEART: Regular rate and rhythm. Abdomen: Soft, no distention. EXTREMITITES: Trace edema. Objective - Vital Signs Vital signs: Vital Signs Temp 97.8 F 11/08/20 04:00 Pulse 100 11/08/20 07:00 Resp 17 11/08/20 07:00 BP 91/73 11/08/20 07:00 Pulse Ox 93 L 11/08/20 08:00 Intake & Output 11/07/20 11/08/20 11/08/20 18:59 06:59 18:59 Intake Total 976 140 Output Total 0 0 Balance 976 140 Weight 97.4 kg Intake: Oral 660 100 Tube Feeding 306 0 Blood Product 10 Other 40 Output: Urine 0 0 Other: Voiding Method External Catheter External Catheter # Voids 1 ABP, PAP, CO, CI - Last Documented Arterial Blood Pressure 136/76 - Labs CBC & Chem 7: 11/07/20 03:12 11/07/20 03:12 Labs: Abnormal Lab Results - Last 24 Hours (Table) 11/07/20 11/07/20 11/07/20 Range/Units 03:12 03:12 16:51 POC Glucose (mg/dL) 67 L (75-99) mg/dL Iron 22 L (50-170) ug/dL % Saturation 9.02 L (12.00-45.00) Procalcitonin 3.92 H (0.02-0.09) ng/mL Assessment and Plan Plan: Assessment: 1. Acute kidney injury secondary to ATN secondary to COVID-19 and DKA. Baseline creatinine is near 1. Started on hemodialysis on September 14. Has p-cath. Oliguric. No hydronephrosis noted on kidney ultrasound. 2. DKA s/p insulin drip and IV fluids. 3. Acute hypoxic respiratory failure secondary to COVID-19 pneumonia. Status post tracheostomy this admission. 4. Metabolic acidosis secondary to acute kidney injury and DKA s/p bicarb drip. Improved postdialysis. 5. Hyponatremia, hypervolemic. Stable. 6. Hyperphosphatemia secondary to acute kidney injury. Maintained on Renvela. 7. Anemia of chronic illness and kidney disease. Maintained on Aranesp. Iron deficiency noted - s/p iv iron. Status post blood transfusion this admission. 8. Fluid overload. Improved with ultrafiltration. 9. Hypercalcemia. Patient is on daily vitamin D supplementation. Plan: Hemodialysis today. Maintain tube feeds. Avoid nephrotoxins. Continue to monitor renal function and urine output. Monitor for renal recovery. Possible discharge to ECF today. Outpatient dialysis has been set up. Stopped vitamin D.
[2020-11-08] MEDS ORDERED: SODIUM FERRIC GLUCONAT-SUCROSE 125 MG in SODIUM CHLORIDE 0.9% 100 ML IVPB ONE (09:30)
[2020-11-08 11:26] LABS: Glucose,Whole Blood 73 mg/dL (75-99)
[2020-11-08] MEDS: DARBEPOETIN ALFA 40 MCG/0.4 ML SYRINGE SQ SCH (11:56)
--- NOTE | 2020-11-08 12:00 | P.PN ---
Subjective Progress Note Date: 11/08/20 Principal diagnosis: DKA, COVID-19 pneumonia This is a 55-year-old -La[place] female with history of type 2 diabetes, admitted today through the emergency room with a few days' history of increased shortness of breath, cough, fever, chest x-ray in the ER showed bilateral i nfiltrates consistent with COVID-19 pneumonia in the patient had positive PCR for COVID-19 infection. Patient had significantly abnormal labs on admission, she had an extremely low bicarb, extremely low pH, and marginal oxygenation at best. Patient was admitted to the regular medical floor, and I happened to be rounding on that same floor were and I was notified about this patient having worsening respiratory distress. Evaluated the patient, clearly the patient has DKA and she clearly has acute hypoxic respiratory failure secondary to COVID-19 pneumonia. As soon as I laid eyes on the patient, recommended immediate transfer to the ICU. Patient was placed on BiPAP however she did not tolerate BiPAP well, and when I went back to evaluate the patient in the ICU, she was basically deteriorating, and she was using her accessory muscles, patient was in severe respiratory distress. Hence I recommended immediate intubation and placement on mechanical ventilation. Chest x-ray continued to show bilateral infiltrates consistent with worsening COVID-19 pneumonia ABG showed a pO2 of 59 pCO2 of 42 pH of 7.05 and this was on the 100% FiO2 20 of PEEP tidal volume of 375 rate of 36. Patient will be given more bicarb and she is already on a bicarb drip. She is receiving insulin and she is also receiving IV fluids in the form of 0.9 normal saline. Sugars were 384. Inflammatory markers were added to be extremely high, LDH 2048, and C-reactive protein of 8.7. D-dimer was borderline elevated at 1.84. On 09/12/2020 patient seen in follow-up in the intensive care unit, yesterday she was emergently transferred to the intensive care and intubated and placed on mechanical ventilator. She remains intubated, sedated on mechanical ventilator, currently on assist control mode of ventilation with a rate 36, tidal vital 375, FiO2 100% and PEEP of 20. This might blood gas reveals pO2 of 62, pCO2 40, pH of 7.35 this was done on FiO2 of 80%, her peak airway pressure is 35, in her plateau pressure is around 32. she is sedated on Diprivan and 60 mics per kilo per minute, 0.9 normal saline at 100 ML per hour, insulin drip is at 4 units per hour, and she has 5% dextrose with 3 units of bicarbonate at 100 ML per hour. Today's labs have been reviewed, showing white blood cell count 10.3, hemoglobin of 14.4, d-dimer has increased to 14.31, and her Lovenox was adjusted and increased to 50 mg twice daily, sodium is 137, potassium is 3.7, chloride is 112, CO2 is up to 21, BUN of 16 creatinine is 1.57, LDH is 2618, CRP is 18.2. Pro-Calcitonin level came back elevated at 3.53, suggesting possibility of bacterial infection She received a liter bolus yesterday after intubation. We w ill give the patient additional fluid boluses today. Sputum culture has been sent and is pending, blood cultures have been sent. Patient has been placed in prone position at 8:00 last night, and her oxygenation seems to be improved and she satting 97% on 100% FiO2 and subsequently FiO2 was dropped down to 80%, and PEEP is down to 18. She remains in prone positioning, tolerating it well, she is having low-grade fevers, she is in sinus mechanism with tachycardic on the monitor, not requiring any vasopressor support right now, will start tube feedings today when the patient is placed back over in the supine position On 09/13/2020 patient seen in follow-up in intensive care unit, she remains proned, and at the time of our evaluation patient has already been prone for close to 16 hours and is about to be turned back on her spine. She tolerates prone position quite well, she remains intubated, paralyzed and sedated on mechanical ventilator, current vent settings are assist-control mode of ventilation with a rate of 36, tidal volume 375, FiO2 of 70% and PEEP of 18, this point his blood gases show pO2 of 82, pCO2 of 39, and pH of 7.19. She's currently on D5 W with 3 A of bicarbonate at 75 per hour, Diprivan is a 60 mics per kilo per minute, index is at 2 mics per kilo per minute, and insulin drip is at 6 units per hour, patient has not started tube feedings yet. She is in sinus mechanism, hemodynamically stable, not requiring any vasopressor support. Today's chest x-ray has been reviewed showing bilateral lung infiltrates that appear to be stable. Today's labs have been reviewed showing white blood cell count of 11.1, hemoglobin 13.2, d-dimer is pending, yesterday his d-dimer was 14.3, patient's Lovenox dose was increased to 50 mg every 24 hours. Her renal function continued to worsen, and her creatinine is up to 3.4 on today's labs, BUN is 24, were bicarb concentration is only 13 on today's labs, sodium is 137, potassium is 4.0. AST is up to 77, ALT and alk phos are within normal limits, yesterday set him inflammatory markers with showing up trending LDH at 2618, and CRP of 18.2. Her pro-calcitonin level was increased yesterday at 3.53 and we added empiric antibiotics in the form of Zosyn. Sputum culture has been sent and has shown no growth. Overnight patient remained oliguric, yesterday we gave her additional fluids, however did not improve her renal function and her kidney function continued to get worse. Nephrology consultation has been requested, she has only been producing urine in the order of 5-10 ML per hour, renal ultrasound has been obtained showing no evidence of hydronephrosis bilaterally. On 09/14/2020 patient seen in follow-up in intensive care unit, she remains intubated, sedated and paralyzed, currently on assist control mode of ventilation with a rate of 36, tidal vital 375, FiO2 of 60% and PEEP of 18. This morning's blood gas was reviewed showing pO2 of 60, pCO2 of 43, and pH of 7.32. This was done on FiO2 of 70%, her peak airway pressure is 40, plateau pressures 26. She is currently on D5 with 3 A of bicarbonate at 100 ML per hour, insulin drip is at 7 units per hour, fentanyl drip is a 0.5 mics per kilo per hour, Diprivan and is at 50 mics per kilo per minute, and index is at 2 mics per kilo per minute. She is tolerating tube feedings of vital high-protein at 27 with a goal 27 standard water flushes. Today's chest x-ray has not been completed yet, because the patient has been in prone position for last 16 hours. Patient tolerates prone in quite well, and her oxygenation improves when she is in prone position. However when she is turned over in the supine position to complete chest x-rays and ADL's, patient's O2 sat drops down to low 80s and her FiO2 requirement increases at that time. Today's labs have been reviewed, and there has been further worsening of her renal function, and patient has made almost no urine overnight. Her BUN is 33, and creatinine is 4.87, nephrology is following, her renal ultrasound showed no evidence of hydronephrosis. Her urinalysis showed possibility of urinary tract infection, and patient has been started on cefepime. Urine culture is pending at this time, blood and sputum cultures have been negative. No fevers overnight, she's not requiring any vasopressor support. On 09/15/2020 patient seen in follow-up in intensive care unit, she remains intubated, sedated and paralyzed on assist-control mode of ventilation with a rate of 36, tidal vital 375, FiO2 100% and PEEP of 18, this morning's blood gas reviewed showing pO2 of 58, pCO2 of 45, and pH is 7.35, this was done on FiO2 of 100%. Her peak airway pressures 44, plateau pressures 38, she is on 0.9 normal saline at 50 ML per hour, Diprivan is a 40 mics per kilo per minute, Nimbex drip is a 2 mics per kilo per minute, and fentanyl drip at 0.5 mics per kilo per hour, she is tolerating tube feedings with vital high-protein is 27 with a goal of 27 standard water flushes. She is in sinus mechanism with a rate of 73, she is hemodynamically stable and not requiring any vasopressors. Today's chest x- ray shows ARDS, bilateral airspace opacities, no significant pleural effusion and no pneumothorax. Today's labs have been reviewed, white blood cell count is 9.9, hemoglobin is 11.3, sodium is 134, respiratory electrolytes were within normal limits, and there has been further worsening of her renal function with BUN of 34, creatinine is 4.78, her urine output has remained very poor. Last night she had her first hemodialysis session and no fluid was removed, this morning she is having another hemodialysis treatments and the goal is to remove half a liter of fluid. Her sputum, blood and urine cultures remained negative thus far, patient's pro-calcitonin level came back significantly elevated at 23.5 suggesting evidence of bacterial infection. Patient remains on cefepime for antibiotic coverage, she also remains on Decadron milligrams twice daily, and Lovenox is 50 mg every 24 hours. On 09/18/2020 patient seen in follow-up in the intensive care unit. She remains intubated, sedated and paralyzed on mechanical ventilator on assist control mode with a rate of 36, tidal volume 375, FiO2 of 60% and PEEP of 20, this might blood gas shows pO2 of 72, pCO2 38, and pH is 7.35, today's chest x-ray still showing bilateral airspace disease possibly slightly improved compared yester day's chest x-ray. Patient is currently on multiple drips including 0.9 normal saline at 20 no per hour, Nimbex is at 3 mics per kilo per minute, Diprivan is at 50 mics per kilo per minute, fentanyl drip is at 1 phil per kilo per hour, insulin drip is at 4 units per hour, she is on tube feedings with vital high- protein at a rate of 10 with a goal of 36 and standard water flushes. Patient has been getting hemodialysis treatments, her last treatment was on 09/16/2020 with removal of 1.2 L of fluid. Today's labs have been reviewed, showing white blood cell count of 12.6, hemoglobin of 9.8, last d-dimer from yesterday was 6.83, and patient remains on Lovenox and 50 mg daily, sodium was 133, potassium is 3.2, chloride is 102, CO2 is 21, BUN of 35, creatinine is 4.12. Her last set of inflammatory markers was from yesterday showing improvement although LDH was still elevated at 1913, and CRP was 1.3. She remains on IV Decadron 6 mg twice daily, she is also on cefepime for empiric antibiotic coverage, and so far all her cultures including sputum blood and urine are negative. Patient has been tolerating prone positioning well, and she has been prone up to 16-20 hours on a daily basis. On 09/19/2020 patient seen in follow-up in intensive care unit, she remains sedated, paralyzed and trached to the ventilator currently on assist control mode of ventilation with a rate of 36, tidal volume is 375, FiO2 of 60% and PEEP of 20. This morning's blood gases show pO2 of 85, pCO2 37, and pH of 7.33, and this was done and FiO2 of 60%. She is status post tracheostomy and PEG tube placement yesterday on 09/18/2020, she is currently in supine position, and that she is having hemodialysis treatment. Yesterday 2-1/2 L of fluid was removed with hemodialysis, the goal to remove another 2 L of fluid with today's hemodialysis treatments, today's chest x-ray shows bilateral multifocal and c onfluent opacities consistent with COVID-19 infection, and some improved aeration at the periphery of the left lung but worsening opacities throughout the right lung compared to one day earlier. Patient is currently on 0.9 normal seen at 20 ML per hour, Nimbex is at 1.5 mics per kilo per minute, Diprivan is a 50 mics per kilo per minute, we will send is currently off, fentanyl drip is at 1 phil per kilo per hour, and insulin is at 5 units per hour, tube feedings are on hold and are expected to be restarted later on today. His labs have been reviewed showing white blood cell count of 14.3, hemoglobin of 9.6, d-dimer is relatively stable at 6.48, sodium is 130, potassium is 3.5, CO2 of 18, and renal profile shows some improvement with BUN of 34, and creatinine is 3.81. Her inflammatory markers are improving, LDH today is 1686, and CRP is 1.1. Her blood sputum and urine cultures have shown no growth to date. Patient continues on cefepime, current dose Lovenox is 15 mg once daily adjusted for her renal function, and she continues on Decadron 6 mg twice daily. 10/18/2020 patient is being seen for a follow-up. Remains in intensive care unit on a mechanical ventilator post COVID-19 related ARDS and respiratory failure. For now, we'll managed to get the patient off paralytics. We managed also to switch her to a combination of Precedex and fentanyl. Propofol was discontinued as the patient has developed very high levels of triglycerides. Currently, Precedex is running at 0.6 mics of respiratory event per minute and fentanyl is running at 2 mcg/kg/h. She opens up her eyes. She follows some verbal cues. Nevertheless, she does not follow any commands. She is not moving her arms to demand. She is quite successful mechanical ventilator. This morning, she is on a VAC plus mode with a rate of 32 and tidal volume of 300 and FiO2 of 70% with a PEEP of 14. The peak pressure was around 30 she'll. Blood gases from today showed a pH of 7.5 with a pCO2 of 50 and pO2 of 94. Chest x- ray was still showing diffuse bilateral pulmonary infiltrates consistent with post COVID-19 related ARDS. She is having some respiratory secretions around the tracheostomy tube. There is a concern for infection. Her white cell count is up to 30. Based on that, cultures will be sent and the patient will be started on empiric antibiotic coverage with IV cefepime. She is currently u ndergoing hemodialysis. The plan is to do daily hemodialysis. Last session was done yesterday and the patient ultrafiltration of around 4 L. The same will be done today. She continues to be edematous in all 4 extremities pH is tolerating her enteral feeding for nutritional support. She remains on Decadron at a dose of 4 mg on a daily basis patient is on Lovenox 30 mg subcu for DVT prophylaxis. She is receiving enteral feeding for nutritional support in the form of vital high protein at the rate of 10 mL an hour and this is to be modified nontender the patient is currently off propofol. This will be discussed further with dietary. Otherwise, she is doing better. I am excited to see her opening up her eyes and looking around. Her mental status is not completely recovered yet. Note that the patient was following commands approximately 3 weeks ago prior to her full-blown decompensation. 10/19/2020, I'm seeing the patient for a follow-up. He remains ventilator dependent with ARDS post COVID-19 infection. This morning, we have managed to keep the patient on a combination of Precedex at 0.7 mcg/kg/h and fentanyl at micrograms per kilogram per hour. The patient seems to be quite interested a mechanical ventilator. She is on a VAC plus mode. Her current rate is a 32 with a total volume of 300-60% with a PEEP of 12. Blood gases showing a pH of 7.32 with a pCO2 of 45 and pO2 of 82. Her current respiratory rate is around 36. Her peak airway pressure is 32. She was having some secretions around the tracheostomy tube stoma and based on some fever and purulent mucus and leukocytosis, with a subsequent to this patient IV cefepime. She is currently receiving IV cefepime 12 hours and the cultures positive for gram-negative bacillus. She is still having a low-grade fever. The white cell count is up to 19.9. Chest x-ray remains unchanged with diffuse bilateral pulmonary infiltrates consistent with COVID-19 related pneumonia/ARDS. Note that the patient is currently off propofol. Adjustments were made on enteral feeding and currently she is on vital high AF running at 50 mL an hour which is goal and the patient is able to tolerate that without any major difficulties. The patient is undergoing daily dialysis and despite that she continues to have significant amount of third spacing. For instance, the dialysis was done yesterday with a total of 4 L fluids being ultrafiltrate. Neurologically, she opens her eyes, looks around, does not follow any commands, not sure if she is sleeping. She grimaces to painful stimulation. At times she gets quite restless and agitated. In terms of her COVID-19 and steroid treatment, I been gradually weaning off th e steroids and the patient's will be dropped down to 2 mg patient remains on anticoagulation with Lovenox 30 mg subcu every 24 hours. On 10/20/2020 patient seen in follow-up in the intensive care unit, she is awake, withdraws from pain, purposeful, however not following commands right now, she is still on sedation in the form of Precedex 0.7 mics per kilo per hour, and fentanyl infusion is at 1 phil per kilo per hour, 0.9 normal saline is at 10 ML per hour, and she is requiring small amount of vasopressor support in the form of norepinephrine at 2.2 mics per minute. Patient's trached to the ventilator, currently on VC plus mode of ventilation with a rate of 32, tidal volume was 300, FiO2 of 60% and PEEP of 12. Blood gas shows pO2 of 92, pCO2 49, and pH is 7.32 and this was done on the above mentioned vent settings. His chest x-ray shows evidence of pulmonary vasculature, and findings are compatible with fluid volume overload and congestive heart failure, patient is having a hemodialysis treatment today with a goal of removing 4 L of fluid. Patient has been dialyzed on a daily basis with removal of an average of 4 L of fluid on a daily basis. Does not produce any urine. Haley catheter had been removed several days ago, today's labs have been reviewed, white blood cell count has trended up slightly, and is currently at 22.2, hemoglobin is 6.3 and patient received 1 unit of packed red blood cells, no evidence of any bleeding, platelet count is 275, lites are within normal limits, BUN is 37, and creatinine is 1.8. Her pro-calcitonin level from a couple days ago was elevated at 3.3. Had a recent cultures done including blood and sputum and urine left radial arterial line tip culture and drainage from around the tracheostomy insertion site. Tracheostomy insertion site drainage was positive for Acinetobacter baumanni, patient's currently on cefepime which the organism is sensitive to. She did have fevers last night, afebrile this morning, T-max in the last 24 hours was 102.8F. And is tolerating tube feedings, she is receiving viral a half at 56 ML per hour which is goal, with standard water flushes of 30 mL every 4 hours. Weak, she is looking around the room, but not following any commands, severe generalized weakness, she has mild edema involving her upper and lower arms. On 11/07/2020 patient seen in follow-up in the intensive care unit, she is awake and alert, oriented 3, she is communicating by mouthing words, she is answering questions appropriately. She appears to be in no acute distress, she has been on 35% trach collar since last 11/03/2020. She is tolerating it well. She is satting 92-98 percent. Breathing comfortably. Yesterday's chest x-ray was reviewed showing continue interstitial infiltrates and patchy bibasilar opacities. Patient had her hemodialysis yesterday with removal of 1.3 L of fluid. She has been on Friday hemodialysis schedule. Her tracheostomy was exchanged, and she currently has a #6 coughed Shiley tracheostomy tube in place. Patient has a PEG tube in place and she is jose ating tube feedings she has Nepro infusing at a rate of 34 ML per hour. Today's labs have been reviewed, her white blood cell, 7.9, hemoglobin is 8.0, sodium 1:30, potassium is 3.9, chloride is 93, CO2 is 28, BUN is 48, creatinine is 2.8. Patient has completed course of cefepime for evidence of Acinetobacter in her sputum. She had no fever or chills. Vital signs have been stable, no nausea or vomiting, abdomen is soft. Patient is in with physical therapy, she is able to lift her arms off the pillow, make a fist, she is moving her lower extremities as well. Social work is following, and currently discharge planning is in progress for discharge to the [facility] possibly today. No other acute events overnight. On 11/08/2020 patient in follow-up in the intensive care unit, she is awake and alert, oriented 3, she is mouthing words, she is communicating with staff, an swers questions appropriately. Patient is breathing comfortably, she has been on 35% trach collar since last Friday, she is satting 93% on 35% trach collar. She's been afebrile, hemodynamically she is stable. Chest x-ray today. Yesterday patient passed a modified barium swallow yesterday, and she has been started on clear liquid diet which she is tolerating quite well. Her tube feedings have been placed on hold, and registered dietitian is following and making recommendations in terms of feedings. No nausea or vomiting, no diarrhea. No new chest x-ray today. No new labs today. Patient had dialysis on 11/07/1999 921 would removal of 1.3 L in fluid, and she is having intermittent hemodialysis treatment today. She has been participating with physical therapy and she is able to lift arms off the pillow, she is moving her legs, she has not been up out of bed yet. Discharge planning is in progress for possible discharge to an inpatient rehab versus ECF possibly today Objective - Vital Signs Vital signs: Vital Signs Temp 98.6 F 11/08/20 08:00 Pulse 97 11/08/20 11:00 Resp 23 11/08/20 11:00 BP 141/87 11/08/20 11:00 Pulse Ox 93 L 11/08/20 11:00 Intake & Output 11/07/20 11/08/20 11/08/20 18:59 06:59 18:59 Intake Total 976 140 500 Output Total 0 0 0 Balance 976 140 500 Weight 97.4 kg Intake: Intake, IV Titration 100 Amount Sodium Ferric Gluconat- 100 Sucrose 125 mg In Sodium Chloride 0.9% 100 ml @ 100 mls/hr IVPB ONCE ONE Rx#:[id number] Oral 660 100 300 Tube Feeding 306 0 Blood Product 10 Other 40 100 Output: Urine 0 0 0 Other: Voiding Method External Catheter External Catheter # Voids 1 ABP, PAP, CO, CI - Last Documented Arterial Blood Pressure 136/76 - Exam GENERAL EXAM: Awake, looking around the room, responding and communicating by mouthing words 35-year-old -[place] female, currently on 35% trach collar HEAD: Normocephalic/atraumatic. EYES: Normal reaction of pupils, equal size. Conjunctiva pink, sclera white. NOSE: Clear with pink turbinates. THROAT: No erythema or exudates. NECK: No masses, no JVD, no thyroid enlargement, no adenopathy. Midline tracheostomy in place, patient currently has #6 Shiley cuffed tracheostomy tube in place CHEST: No chest wall deformity. Symmetrical expansion. Patient has right upper chest permacath hemodialysis catheter in place LUNGS: Equal air entry with bilateral crackles CVS: Regular rate and rhythm, normal S1 and S2, no gallops, no murmurs, no rubs ABDOMEN: Soft, nontender. No hepatosplenomegaly, normal bowel sounds, no guarding or rigidity. Peg tube in place, and is receiving tube feedings in the form of Nepro at 34 ML per hour EXTREMITIES: No clubbing, no edema edema involving upper and lower extremities noted no cyanosis, 2+ pulses and upper and lower extremities. MUSCULOSKELETAL: Muscle strength and tone normal. SPINE: No scoliosis or deformity SKIN: No rashes CENTRAL NERVOUS SYSTEM: awake and alert, oriented 3, communicates by pounding words, responding appropriately moving all 4 extremities - Labs CBC & Chem 7: 11/07/20 03:12 11/07/20 03:12 Labs: Abnormal Lab Results - Last 24 Hours (Table) 11/07/20 11/07/20 11/08/20 Range/Units 03:12 16:51 11:23 POC Glucose (mg/dL) 67 L 73 L (75-99) mg/dL Procalcitonin 3.92 H (0.02-0.09) ng/mL Assessment and Plan Plan: Assessment: #1. Acute hypoxic respiratory failure secondary to COVID-19 pneumonia/ARDS, transferred to the intensive care unit on 09/11/2020 and intubated and placed on mechanical ventilator on 09/11/2020. Patient received 1 dose of Remdesivir on 09/11/2020, however based on her quick progression of her hypoxic respiratory failure she received Tocilizumab 800 mg on 09/11/2020. Tracheostomy and PEG tube placed on 09/18/2020. Patient was successfully weaned from the ventilator support, she status post tracheostomy and PEG tube insertion, currently on 11/07/2020 patient is to 35% trach collar #2. Acinetobacter baumannii infection of the trach site. Completed a course of cefepime #3. Acute kidney injury related to ATN, nephrology has been consulted, ultrasound of the kidneys showed no evidence of hydronephrosis. Patient was initiated on hemodialysis on 09/14/2020. Permacath placed 09/20/2020. Patient is undergoing daily dialysis. #4. diabetes mellitus, insulin-dependent and the patient is currently on insulin sliding scale coverage with NovoLog #5. obesity with a BMI is down to 50 #6. hypotension, recovered and the patient is currently on no pressors #7. Corneal injury, punctate keratitis, left eye, improved #8. Anemia of chronic disease, requiring transfusions of packed red blood cells, today's hemoglobin is 8.0 #9. Generalized anxiety disorder. #10. hypertriglyceridemia, currently off propofol and will utilizing a combination of Precedex and fentanyl. #11. leukocytosis, resolved #13. encephalopathy/delirium , improved and resolved #14. History of hypertension Plan: Patient has been remained stable in the last 24 hours Continue weaning FiO2 as tolerated, patient is currently maintaining stable saturations on 35% trach collar Breathing comfortably Vital signs have been stable, no fever or chills She has completed a course of cefepime She is working with physical therapy Patient has passed the swallow evaluation and modified barium swallow, she is tolerating oral diet May need supplemental PEG tube feedings, will consult with the registered dietitian No acute events overnight Discontinue Seroquel Discharge planning is in progress for discharge to [facility] or inpatient rehab I performed a history & physical examination of the patient and discussed their management with my nurse practitioner, Renetta Moreira. I reviewed the nurse practitioner's note and agree with the documented findings and plan of care. Lung sounds are positive for diminished breath sounds. The findings and the impression was discussed with the patient. I attest to the documentation by the nurse practitioner. Time with Patient: Greater than 30
--- NOTE | 2020-11-08 13:03 | P.PN ---
Subjective Progress Note Date: 11/08/20 CHIEF COMPLAINT: COVID-19 pneumonia HISTORY OF PRESENT ILLNESS: Patient is in the ICU for COVID-19 pneumonia and respiratory failure. She is status post tracheostomy and PEG tube placement with Dr. Zhang. Patient passed her swallowing eval yesterday and is currently on a full liquid diet. She is tolerating diet. Tube feeds have been stopped. They're working on discharge planning. Afebrile. Patient is receiving a dose of IV iron. WBC 7.9 hemoglobin 8.0 PHYSICAL EXAM: VITAL SIGNS: Reviewed. GENERAL: Well-developed in no acute distress. HEENT: No sclera icterus. Extraocular movements grossly intact. Moist buccal mucosa. Head is atraumatic, normocephalic. Patient has wound located and skin breakdown at tracheostomy site. ABDOMEN: Soft. Nondistended. Nontender. PEG tube site clean dry and intact NEUROLOGIC: Awake and opens eyes ASSESSMENT: 1. Acute hypoxic respiratory failure with prolonged mechanical ventilation due to COVID-19 pneumonia status post tracheostomy placement 2. Severe protein calorie malnutrition status post PEG tube placement 3. Pressure wound at tracheostomy site PLAN: -Continue supportive care -Continue ICU management -Continue wound care at tracheostomy site -Patient is stable for discharge from surgical standpoint Physician Sander Operator note has been reviewed by physician. Signing provider agrees with the documented findings, assessment, and plan of care. Objective - Vital Signs Vital signs: Vital Signs Temp 98.6 F 11/08/20 08:00 Pulse 97 11/08/20 11:00 Resp 23 11/08/20 11:00 BP 141/87 11/08/20 11:00 Pulse Ox 93 L 11/08/20 11:00 Intake & Output 11/07/20 11/08/20 11/08/20 18:59 06:59 18:59 Intake Total 976 140 500 Output Total 0 0 0 Balance 976 140 500 Weight 97.4 kg Intake: Intake, IV Titration 100 Amount Sodium Ferric Gluconat- 100 Sucrose 125 mg In Sodium Chloride 0.9% 100 ml @ 100 mls/hr IVPB ONCE ONE Rx#:[id number] Oral 660 100 300 Tube Feeding 306 0 Blood Product 10 Other 40 100 Output: Urine 0 0 0 Other: Voiding Method External Catheter External Catheter # Voids 1 ABP, PAP, CO, CI - Last Documented Arterial Blood Pressure 136/76 - Labs CBC & Chem 7: 11/07/20 03:12 11/07/20 03:12 Labs: Abnormal Lab Results - Last 24 Hours (Table) 11/07/20 11/07/20 11/08/20 Range/Units 03:12 16:51 11:23 POC Glucose (mg/dL) 67 L 73 L (75-99) mg/dL Procalcitonin 3.92 H (0.02-0.09) ng/mL
[2020-11-08 13:08] LABS: Glucose,Whole Blood 86 mg/dL (75-99)
--- NOTE | 2020-11-08 15:50 | P.PN ---
Subjective Progress Note Date: 11/08/20 HISTORY OF PRESENT ILLNESS 35-year-old female patient of Dr. Arroyo with past medical history of type 2 diabetes comes in with acute shortness of breath associated with high light s ugars. Patient on admission was found to have a fever of 101.5 pulse rate 125 respiratory rate 20. Blood pressure 132/106. On chest x-ray obtained in the ER suggestive of bilateral infiltrates concerning for call with pneumonia. COVID PCR was positive. On admissions patient had an ABG with a pH of 7.14 pCO2 of 20, pO2 of 59, bicarb of 7. Patient's blood sugar on admission was 424 on assessment today patient's blood work patient had a sodium 135 potassium 5.4 chloride 123 bicarb less than 5 and creatinine 0.73. D-dimer was elevated on admission patient 9 28 patient given 1 L of IV fluids followed by normal saline running at 200 mL/h. Patient was positive for acetone on admission. She will anion gap closed and was switched to D5NS. Insulin drip was continued during the night and was switched to patient's home medication this morning. One dose of remdesiver was ordered. Apparently around noon, A- team was called on the patient secondary to hypoxia patient's oxygen saturation dropped to the 70s and 80s on 100% nonrebreather. Patient was switched to BiPAP on 18/12 and is doing better o FiO2 of 80%. ABG was obtained and ph was 7. 14 pCO2 of 28 bicarb of 7 pO2 of 17. Patient noted to have uncompensated metabolic acidosis with compensated respiratory alkalosis. Stat dose of 1 amp bicarb was given and followed by sodium bicarbonate drip. Insulin drip restarted. Patient's initiated on dexamethasone 6 mg IV twice a day. Potassium phosphate ordered as phosphorus is low. Patient's repeat blood gases suggest a pH of 7.25, CO2 32 pO2 of 72 bicarb 14. I will not normal saline at 100 mL/h as patient's anion gap has increased. Patient given 1 dose of 2 mg of morphine with improvement in respiratory rate. One dose of Ativan 0.5 mg was given. Xanax 0.25 twice a day along with Ativan 0.5 IV every 6 hours ordered for the patient. Vitals were evaluated patient pulse 129 [id number]. She was moved to the ICU. Precedex drip was initiated. Lopressor was initiated at 25 twice a day. Metoprolol tartrate 5 mg IV every 6 hours. Systolic blood pressure more than 160. Started chest x-ray was obtained and suggest stable bilateral consolidation suggestive of COVID-19 pneumonia. 09/12 patient is seen in the ICU is currently mechanically ventilated and sedated on vent settings of respiratory rate 36, tidal volume 375 FiO2 80% PEEP of 18.. Vital signs reviewed patient had a temp of 100.4 pulse 150 respiratory rate 36 oxygen saturation 95% on 80% on fio2 .'s labs are reviewed which patient had a d-dimer 1.84 that is increased to 14.3. Arterial Blood gas suggest ph 7.35, CO2 40, po2 62, . Her BMP suggest a sodium 135 potassium 3.7 chloride 112 bicarb 21 creatinine 1.57 for calcitonin is 3.5 CRP is increased from 8.78.2 LDH is increased to 2614. Patient remains on Pneumovax, propofol drip. Lovenox increased to 50 subcu twice a day. Patient received 2 L of IV fluids. Continue IV fluids at 100 mL/h. Bicarb drip discontinued patient initiated on Zosyn 3.375 every 8 hours. Continue insulin drip at 4 units per hour. Patient is currently in prone positioning 09/13: Patient evaluated in the ICU remains on Ventilation continues to be sedated, in prone position. Vent settings are respiratory rate 36, tidal vital 375, FiO2 70% PEEP of 18. ABG shows pO2 of 82, PCO2 of 39, pH is 7.19. Latest labs show WBC 11.1, hemoglobin 13.2, d-dimer still pending, but yesterday was up to 14.3. Creatinine up to 3.4, BUN 24 sodium 137, potassium 4.0. Patient's urine output has been low, nephrology on consult. Bicarb drip increased to 100 miles an hour, receiving another liter of normal saline, she did have a ultrasound that showed unremarkable bilateral kidneys. Repeat chest x-ray showed bilateral lung infiltrates that are stable. Anion gap has closed, will start Lantus 10 units at at bedtime Novolog every 6 hours. 09/14: Patient is seen in the ICU, still currently mechanically ventilated and sedated. She continues in the prone position. Her oxygen quickly drops if she is not in prone. Patient's kidney function has worsened. Laboratory values show creatinine of 4.87, BUN 33, LDH 2191, C-reactive protein 2.7. ABG shows pH 7.32, pO2 of 60, pCO2 43. Patient is making almost no urine overnight. Nephrology is following patient continues on cefepime for urinary tract infection, culture is still pending. Vascular has been consulted for placement of temporary hemodialysis catheter for plans for dialysis. 09/15: Patient evaluated in the ICU, continues to be mechanically ventilated and sedated on assist control ventilation rate of 36, tidal volume 375, FiO2 100% and PEEP of 18. ABG today shows pO2 58, pCO2 of 45, and pH 7.35. She continues on tube feedings. Yesterday patient underwent ultrasound-guided right internal jugular non-tunneled hemodialysis catheter placement. Patient underwent hemodialysis treatment last night and plans have another hemodialysis treatment today. She continues to make almost no urine. She continues on cefepime for antibiotic coverage, and continues on Decadron and Lovenox. 09/16: Patient seen on follow-up remains in the ICU mechanically ventilated and sedated. She continues on assist control rate of 36, tidal volume 375, FiO2 100% and PEEP of 20. PEEP had to be increased due to patient had to be in supine position for dialysis, will go back to prone position once dialysis is complete. ABG shows pH 7.32, pCO2 49, PaO2 61. Laboratory values showed WBC 11.2, hemoglobin 11, sodium 134, creatinine 4.44, BUN 38. Urine culture shows no growth, blood cultures show no growth to date. Repeat chest x-ray shows bilateral pleural effusions, correlate for ARDS, pulmonary edema, diffuse pneumonia, findings are stable from last exam. Patient does not require any pressors, blood pressure 133/57, heart rate 78. 5/16: Patient was evaluated in the ICU today for follow-up. She continues to be intubated and on mechanical ventilation. Current vent settings are tidal volume 375, FiO2 100% and PEEP of 20. ABG shows pH 7.37, pCO2 40, pO2 102. She continues with intermittent prone positioning. Patient continues to have almost no urine output, maintained on dialysis. Patient received dialysis yesterday without complication. Laboratory values revealed WBC 10.3, hemoglobin 10.4, sodium 132, potassium 3.1, BUN 33, creatinine 4.29, LDH 1913, C-reactive protein 1.3. Urine and sputum cultures are negative, blood cultures show no growth to date. Consult placed to dietary to start TPN[ ] 09/18: She remains in the intensive care unit intubated and on mechanical ventilation with tidal volume 375, FiO2 60 and PEEP of 20. Patient is being prone to daily at approximately 16 hours per day. Pulmonary medicine has added in Dr. Zhang to do PEG tube and trach today. Patient is not on vasopressors. Repeat blood work reveals WBC 12.6, hemoglobin 9.8, platelet count 212. Sodium 133, potassium 3.2, chloride 102, CO2 21, BUN 35 and creatinine 4.12. Blood sugar 126. Patient underwent hemodialysis yesterday with removal of 2 L and is scheduled again today with goal of 2-3 L and is scheduled again tomorrow. 09/19: She is scheduled for hemodialysis today and is off fentanyl temporarily. Patient is status post trach and PEG tube yesterday. And she remains on mechanical ventilation. Pulse ox 93-95%. She has been afebrile, heart rate 64, respiratory rate 36, blood pressure 115/50. Fentanyl is off to improve blood pressure for hemodialysis which is scheduled for today. Contacted vascular surgery about permanent hemodialysis catheter. Repeat blood work reveals WBC 14.3, hemoglobin 9.6, platelet count 200. D-dimer 6.48. LDH 1686. C-reactive protein 1.1. BUN 34 creatinine 3.81. Sodium 130, potassium 3.5, chloride 101, CO2 18. Blood sugars running between 101 198. Plan is to wean off Pneumovax today. Patient remains on insulin drip. Repeat chest x-ray reveals bilateral multifocal confluent opacities consistent with COVID-19. Some improved aeratio n periphery of the left lung and worsening opacities throughout the right lung. 09/20: She remains in the intensive care unit on mechanical ventilation. She has been afebrile, heart rate 65, respiratory rate 37, blood pressure 121/70, pulse ox 91-99%. Repeat blood work reveals WBC 14.5, hemoglobin 9.1, platelet count 216. D-dimer 6.13. Sodium 133, potassium 3.1, chloride 102, CO2 18, BUN 35 and creatinine 4.27. Blood sugars running between 128 and 143. LDH 1717. C- reactive protein 1.7. Patient remains on insulin drip which will be transitioned to NovoLog scale every 6 hours. Patient is scheduled for permanent hemodialysis catheter placement today with vascular surgery. Repeat chest x-ray reveals stable diffuse bilateral interstitial and airspace disease. Possible small right effusion. His work is following [facility] Do not anticipate discharge until next week. 09/21: Patient is undergoing hemodialysis. She remains on mechanical ventilation with tidal volume 375, FiO2 down to 45 and PEEP was decreased to 15. Patient is continued on propofol, fentanyl drips. She is on tube feedings at goal. Patient was taken off insulin drip yesterday and on scale only but blood sugars are running in the 200s, Levemir scheduled at bedtime will be added. Other blood work reveals WBC 13.3, hemoglobin 8.7, platelet count 192. Sodium 137, potassium 3.6, chloride 107, CO2 18, BUN 34 and creatinine 4.21. Repeat chest x-ray is stable. 09/22: She remains in the intensive care on mechanical ventilation with tidal volume 375, FiO2 of 50 and PEEP of 10. Pulse ox is running 96%. She is afebrile, heart rate in the 50s, respiratory rate 36, blood pressure 100/64. Repeat blood work reveals WBC 16.5, hemoglobin 8.9, platelet count 213. Sodium 134, potassium 3.7, chloride 103, CO2 21, BUN 34 and creatinine 3.89. Blood sugars running in the 200s to 324. Levemir increased to 16 units at bedtime and continue NovoLog scale every 6 hours. Patient is on tube feedings at goal. She has a Haley catheter in with a scant amount of dark/brown urine. Fecal management system is in place. Repeat chest x-ray reveals diffuse bilateral airspace infiltrates persist unchanged. Patient is scheduled for hemodialysis tomorrow morning on Friday. 09/23: Patient remains on mechanical ventilation with tidal volume 3.75, FiO2 50 and PEEP of 10. pvc monitor sinus rhythm. She has no urine output. Fecal management system is in place. She is undergoing dialysis at this time with plan for removal of 2-1/2 L. She has been afebrile, heart rate in the 50s, respiratory rate 36, blood pressure 108/76 and pulse ox 89%. WBC 13.6, hemoglobin 9.1, platelet count 194. Sodium 136, potassium 3.0 and was replaced, chloride 106, CO2 21, BUN 49 creatinine 5.31. Blood sugars are running between 182 and this morning 194. Patient was still in the 200s and 300s. Levemir last evening was increased to 16 units. Patient remains on propofol and fentanyl drips. Lovenox was increased to 60 mg twice daily. 09/24: PEEP was increased today to 20, tidal volume is at 375 and FiO2 of 50%. Patient has been afebrile. She has been started on levo fed. Repeat chest x- ray reveals bilateral multifocal confluent opacities consistent with Covid 19 or ARDS redemonstrated. Nephrology will plan dialysis for tomorrow for 3 L. Patient remains on propofol fentanyl and Nimbex. WBC 12.5, hemoglobin 9.8, platelet count 161. D-dimer 13.3. Sodium 132, potassium 3.4, chloride 102, CO2 20, BUN 48 and creatinine 4.67. Blood sugars extremely elevated to 96-409. LDH 2217. 09/25: Patient remains in the intensive care unit on mechanical ventilation with tidal volume 375, FiO2 50 and PEEP of 20. Patient is afebrile, heart rate 61, respiratory rate 36, blood pressure 102/56, pulse ox 97%. Repeat blood work reveals WBC 9.3, hemoglobin 8.5 and platelet count 171. Sodium 130, potassium 3.7, chloride 100, CO2 20, BUN 61 creatinine 5.65. Blood sugars have been elev ated up to 455. Levemir increased to 20 units twice daily, NovoLog 5 units every 6 hours and continue NovoLog scale. Patient is scheduled for hemodialysis today. Repeat chest x-ray reveals bilateral multifocal and confluent opacities. Decadron and Lovenox dosing change by pulmonary. Patient is off norepinephrine. 09/26: Patient remains in the intensive care unit on mechanical ventilation with tidal volume 375, FiO2 50 and PEEP of 15. She has been afebrile, heart rate 91, blood pressure 114/68, pulse ox 99%. pvc monitor sinus rhythm. 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 Sodium 134, potassium 3.6, chloride 102, CO2 22, BUN 41 creatinine 4.21. Patient has improved blood sugars this morning running 150s and 160s. Diabetic medications were adjusted yesterday. Patient is awake and alert and interacting. Yesterday, patient had PICC line inserted by interventional radiology. Repeat chest x-ray reveals diffuse airspace infiltrates in both lung ann appear to progress slightly in the interval. 09/27: Patient remains in intensive care unit on mechanical ventilation with improvement of settings with tidal volume 375, FiO2 decreased to 40 and PEEP decreased to 10. Patient is on hemodialysis every other day and plan to remove 3 L today. Patient is more awake and alert. She is slow to respond but is able to follow simple commands. Blood sugars are running between 84 and 123. Repeat blood work reveals WBC 7.1, hemoglobin 8.1, platelets 152. Sodium 135, potassium 3.6, chloride 103, CO2 21, BUN 53 and creatinine 5.88. Repeat chest x-ray revealed cardiomegaly and pulmonary edema. Patient is on tube feedings:. Patient is not require vasopressors and is off sedation. Fecal management system remains in place for brown liquid stool. C. difficile was negative. 09/28: Patient remains on mechanical ventilation with tidal volume 375, FiO2 increased to 80 and PEEP increased to 18. Patient had a rough night was very anxious, no pain. Xanax 0.25 mg 3 times daily was added. There is concern for pulmonary embolism for which patient was started on heparin drip, she is unable to undergo CAT scan. Venous Doppler bilateral lower extremities was nondiagnostic due to extensive edema in obese patient but minimal imaging of the popliteal veins does show flow. Repeat echocardiogram has been ordered. Cefepime has also been ordered at 1 g IV piggyback every 24 hours as well as vancomycin, pharmacy dosing. Patient is back on fentanyl drip, propofol drip and norepinephrine. Blood sugars are elevated and insulin Levemir will be i ncreased to 25 mg twice daily. Ferrlecit infusion has been ordered by nephrology for 4 days. Patient is undergoing hemodialysis today.temperature max 100.2, heart rate 134, respiratory rate 34, blood pressure 120/65, pulse ox 94%. pvc monitor is sinus tachycardia. Repeat blood work reveals WBC 16.9, hemoglobin 9.7, platelet count 216. D-dimer 8.81. Sodium 134, potassium 3.8, chloride 99, CO2 25, BUN 43 and creatinine 5.36. Blood sugars in the 200s. AST 40. 09/29 Patient had declined more last 48 hours require more sedation, patient is doing hemodialysis, respiratory failure is quite bit worse this time. Patient was inquired the pain is well back on fentanyl drip. Her vent set up with PEEP is limited but higher. No new finding on culture and her chest x-ray continues shows diffuse infiltrate persistent although there is a moderate interval improvement. 09/30 patient's was seen and evaluated. PEEP was reduced to 11 as patient is maintaining good saturation at the current vent settings. 10/01 patient was seen at bedside. She is currently on assist control rate of 28 white tidal volume 350 FiO2 50% and PEEP of 10 which has been reduced by pulmonary as patient name cleaning her oxygen saturation. Arm blood gas was obtained with a pH of 7.35 pCO2 37 pO2 of 63. She remains hemodynamically stable with no need for pressors. Labs were reviewed patient's BUN is 29 crea tinine 3.93 glucose 122 albumin 2.2 sodium 131 chloride 19 hemoglobin is downtrending with a Hb of 7.3 no leukocytosis 7.1. Patient's urine output is minimal at this time. Her rate has increased to 129 and is currently on positive fluid balance even with dialysis. Last dialysis was done yesterday. Continue enteral feeding currently at goal. Antibiotic has been discontinued and continues to remain on DEXA methicillin 4 mg IV daily. 10/02 patient continues to be on trach support with mechanical ventilation. Patient was evaluated by conche loader and unloader and was switched to VC control as patient was noted to be double stacking on and off throughout the night. Respiratory rate continue to 28 tidal volume increased to 400 with a PEEP for Dr. Downey. Patient is maintaining oxygen saturation 91% on the current setting. According to the nurse bedside patient saturation drops significantly or she is moved or her sedation is dropped. Patient is currently on propofol drip, fentanyl drip. She did underwent dialysis today and was able to maintain her low pressure without the need of pressors. Labs reviewed today suggest a WBC of 6.7 hemoglobin of 7.0 and d-dimer 3.9 bicarb 17 BUN 38 creatinine 4.8. LDH is 964. Sodium 1:30 likely secondary to volume overload. Urine sodium and urine osmolality ordered. Patient's glucose this morning is 146. Continue to remain on enteral feeding. Urine output is reduced. Fall catheter will be placed today. Continue to remain on dialysis. 10/03: Patient remains on mechanical ventilation and is back on propofol and fentanyl drips. Patient is currently on VC control with tidal volume 400, FiO2 55 and PEEP of 12. Patient still is not making any urine and is dialysis dependent with next treatment planned for tomorrow with removal of 3-3-1/2 L. PEG tube feedings are at goal. Fecal management system remains in place. At the time of evaluation, patient is off levophed. Repeat chest x-ray reveals stable diffuse bilateral airspace disease correlate for ARDS, pulmonary edema or diffuse pneumonia. Temperature max last evening was 101. Temperature currently 99, heart rate 106, respiratory rate 32, blood pressure 101/50, pulse ox 86%. Repeat blood work reveals WBC 6, hemoglobin 7.4, platelet count 160. D-dimer 4.05. Sodium 133, potassium 3.5, chloride 100, CO2 23, BUN 31 creatinine 3.8. Blood sugars are running between 100 and 170. Ferritin 1514. Liver function test normal. LDH 1016, C-reactive protein 13.6. Prognosis remains guarded. 10/04: Patient remains intubated on mechanical ventilation with tidal volume 400, FiO2 65, PEEP of 14. Patient continues to run fevers and repeat blood culture and urine and urine culture ordered for today. Haley catheter has been removed this patient has no significant urine output at about 20 mL per shift. BladderScan is monitored for greater than 300 and the patient is straight cathed. Hemoglobin is 6.8 and she has been ordered 41 unit of packed RBCs today. She is currently on propofol and fentanyl drips. She is scheduled for hemodialysis today. WBC 4.5, hemoglobin 6.8, platelet count 151. D-dimer 3.28. Sodium 132, potassium 4.1, chloride 100, CO2 22, BUN 37 creatinine 4.74. Blood sugars running between 97 and 110. Ferritin 1801. LDH 859. C-reactive protein 14.4. Chest x-ray reveals correlate for pneumonia, edema, ARDS. Prognosis remains guarded. 10/05: Patient remains in intensive care unit currently on mechanical ventilation with tidal volume 400, FiO2 was increased to 100 and PEEP is at 14. She continues to run fevers which have worsened with temperature max 103.1. She has been tachycardic in the 130s, blood pressure is marginal but not on vasopressors. Pulse ox currently 92%. Repeat blood work reveals WBC 5.5, hemoglobin 7.6, platelet count 190. D-dimer 2.7, ferritin 1770, LDH 932, C- reactive protein 21.4. Blood sugars are running between 100 1669. Electrolytes are normal. BUN 27 and creatinine 3.79. Pancultures were done yesterday including a straight cath for urine culture, sputum culture and blood culture. Arterial line was removed as well as midline. She is currently on propofol, fen tanyl and started on Nimbex today. 10/06: Patient remains in the intensive care unit. Today patient in prone position and remains on mechanical ventilation with tidal volume 350, FiO2 65 and PEEP of 14. Her last documented fever was yesterday at 2 PM. Heart rate is in the 120s, respiratory rate 32, pulse ox 88-92%. CBC is unremarkable. Electrolytes are normal. BUN 30 creatinine 2.93. Blood sugars are running between 135 and 164. Cultures from October 04: Blood culture no growth, sputum culture finalized, urine culture finalized. Catheter tip culture is in process. Repeat chest x-ray shows bilateral interstitial infiltrates. Patient is on tube feedings of Nepro at goal of 30 ML's per hour. Patient underwent dialysis yesterday and is scheduled for repeat dialysis today. 10/07: Patient maintains in the intensive care unit intubated and on mechanical ventilation. She is receiving hemodialysis this morning has been every day. Plan is to remove 2-1/2 L today. Vent settings have changed today with tidal volume 350, FiO2 was increased to 100% and PEEP remains at 14. She has been continued on Nimbex, fentanyl, norepinephrine and propofol. Plan is to prone position patient following dialysis. Repeat chest x-ray reveals worsening interstitial infiltrates. BUN is 26 and creatinine 2.59. LDH 955, C-reactive protein 22.1. Prognosis remains poor. 10/08: Patient remains in intensive care unit intubated and on mechanical ventilation with tidal volume 350, FiO2 60, PEEP of 14. She is pronating today. She is scheduled for hemodialysis on a daily basis. She has been afebrile, heart rate 112, respiratory rate 36, blood pressure 161/88, pulse ox 93%. Repeat blood work reveals WBC 9.9, hemoglobin 9.1, platelet count 320. Sodium 133, potassium 5.3, chloride 100, CO2 20, BUN 29 creatinine 2.44. Blood sugar running between 102 and 139. LDH 1026, C-reactive protein 19.7. 10/09: Patient is undergoing dialysis this morning. She continues to be intubated and on mechanical ventilation with tidal volume 350, 270 and PEEP of 14. Patient is also on propofol, Nimbex, norepinephrine and fentanyl drips. Repeat chest x-ray reveals persistent bilateral multifocal and confluent opacities consistent with Covid 19. She is afebrile, heart rate 116, respiratory rate 36, blood pressure 120/65, pulse ox 91%. Repeat blood work reveals WBC 5.4, hemoglobin 9.2, platelet count 216. D-dimer 2.67, ferritin 2568, LDH 794, C- reactive protein 13.9. Blood sugars have been running 90-104. Creatinine 1.64. She is on daily dialysis treatment. 10/10: She remains in the intensive care unit. She is now out of isolation as a repeat Covid test came back negative. She remains on mechanical ventilation with tidal volume 350, FiO2 70 and PEEP of 14. Patient is also on Nimbex, propofol, norepinephrine, fentanyl drips. She is on PEG tube feedings at goal and tolerating well. Repeat blood work reveals WBC 7.8, hemoglobin 7.5, platelet count 267. Sodium 139, potassium 3.9, chloride 109, CO2 20, BUN 20 creatinine 1.29. Blood sugars are running between 76 and 102. Scheduled Aiyana Log decreased to 3 units. Repeat chest x-ray reveals moderate cardiomegaly and continued pulmonary edema. Slight interval improvement. Patient is continued on daily hemodialysis. 10/11: Patient remains in intensive care unit on mechanical ventilation with tidal volume 325, FiO2 70, PEEP 14. She is currently being prone. She underwent hemodialysis this morning with removal of 4 L of fluid with plan to continue daily treatment. She is currently on Nimbex, fentanyl and propofol. No vasopressor at this time. Fecal management system remains in place. She is on tube feedings currently at hold due to prone positioning. Patient has been afebrile, heart rate 116, respiratory rate 36, blood pressure 100/58, pulse ox 93-96%. Repeat blood work reveals WBC 9.3, hemoglobin 8.1, platelet count 276. Sodium 136, potassium 4.3, chloride 103, CO2 20, BUN 20 creatinine 1.14. Blood sugars running between 133 and 202. 10/12: Patient remains in the intensive care unit. She is undergoing hemodialy sis this morning. She's been afebrile, heart rate in the 120s, respiratory rate 32, blood pressure 102/65. She is not on vasopressors. She is continued on Nimbex, fentanyl and propofol. Vent settings are currently tidal volume 325, FiO2 70, PEEP 14. Total platelet count 273. Sodium 133, potassium 4.7, chloride 100, CO2 19, BUN 21 creatinine 0.91. Blood sugars running between 121 and 143. 10/13: Patient remain in the ICU she is on hemodialysis daily, she is still on the vent with a PEEP of 14 and FiO2 of 70. Her oxygenation is marginal pulse rate still high. Patient had scratched cornea was seen in ophthalmology decided to keep doing eyedrops along with eye patch at this point. Prognosis still very bad this point. 10/14: She remains on mechanical ventilation with tidal volume 325, FiO2 70% and PEEP of 14. She did require label fed last evening for about 6 hours. She did not tolerate pronating yesterday. She is undergoing dialysis this morning with plan for removal of 4 L. Blood sugars have been low and IV fluids changed to D10 until blood sugars have recovered. Levemir and scheduled NovoLog discontinued. Patient is on tube feedings at goal there's been no change in th is. 10/15 patient remains on mechanical ventilation in the intensive care unit. FiO2 still at 70%, PEEP of 18. Blood sugars have improved since medications were adjusted. White blood cells 33.9, hemoglobin 8.5, sodium 135, BUN 19, creatinine 0.96. Patient to receive dialysis again today. Patient did run a low-grade fever throughout the night and pro calcitonin level is ordered. Chest x-ray showed continued diffuse bilateral airspace disease. Patient remains on tube feedings at goal. 10/16: Patient remains on mechanical ventilation with tidal volume 300, FiO2 70, PEEP of 15. Fecal management system is out. She is currently on low dose of norepinephrine. She is also on fentanyl drip, propofol drip, rocuronium drip. Heart rate is running in the 130s, sinus rhythm, blood pressure 121/63, pulse ox 95%. Patient is been afebrile. Repeat blood work reveals WBC 18.9, hemoglobin 7.5, platelet count 291. Sodium 135, potassium 4.2, chloride 101, CO2 19, BUN 25 and creatinine 1.36. Blood sugars are running between 143 and 199. Patient is on scale insulin only. Repeat chest x-ray reveals persistent bilateral multifocal and completed opacities consistent with Covid 19. 10/17: Patient remains on mechanical ventilation with tidal volume 300, FiO2 50, PEEP of 14. She is currently receiving hemodialysis. The patient is having yellow-colored drainage from the trach site. This is going to be culture today. Repeat blood work reveals WBC of 24, hemoglobin 7.3 and platelet count 310. Sodium 136, potassium 4.1, chloride 101, CO2 19, BUN 24 creatinine 1.43. Blood sugar 139. Capillary blood glucose running 147 and 189. Repeat chest x-ray is unchanged. Patient had increased respiratory rate 40s and 50s with oxygen saturation of 87 and now was increased and Seroquel added this morning. Prognosis remains guarded. 10/18: Patient remains on mechanical ventilation with tidal volume 300, FiO2 60, PEEP has been decreased to 12. Patient will need a PEEP of 8 in order to tra nsfer to long-term care. She is currently on fentanyl drip and Precedex drip. Patient is tracking when her name is stated. She seems to be slightly improved today. Patient has been afebrile, heart rate 106, respiratory rate 32, blood pressure 110/61, pulse ox 98%. Repeat blood work reveals WBC 30.3, hemoglobin 7.2, platelet count 350. Sodium 139, potassium 4.2, chloride 103, CO2 20, BUN 23 creatinine 1.79. Blood sugars are increasing running up 299. Patient will be placed on Levemir. Secretions from tracheotomy sent for culture and in process. She is currently undergoing hemodialysis. 10/23: Patient remains in the intensive care unit on mechanical ventilation with tidal volume 300, FiO2 65 and PEEP of 10. pvc monitor has been in a sinus rhythm. Patient does open her eyes and appears to be tracking. Blood sugars have been elevated. Levemir will be increased to 40 units daily and scheduled NovoLog increased to 12 units and continue NovoLog every 6 hours per scale. Patient is receiving hemodialysis today. She is not currently on vasopressors. Patient is on Precedex drip only. Antibiotics in the form of cefepime were started on October 18. Patient has been afebrile, heart rate 126, respiratory rate 36, blood pressure 163/105. Pulse ox 91%. Repeat blood work reveals WBC 16.0, hemoglobin 7.2, platelet count 208. Electrolytes are within normal limits. BUN 62 and creatinine 2.43. Blood sugars running between 259-321. Most recent blood culture from [facility] 20 is no growth at 24 hours. Repeat chest x-ray reveals cardiomegaly and persistent bilateral pulmonary edema. 10/24: Patient is awake, eyes are open and tracking, she is able to follow simple commands. Severe generalized weakness noted. Precedex gtt has been discontinued. Patient is receiving hemodialysis. Her blood sugars have remained elevated for which Levemir increased to 25 units twice daily along with 15 units of NovoLog every 6 hours along with scale. Tidal volume 330, FiO2 60, PEEP of 8. case manager and social insurance administrator following closely. Anticipate possible discharge by the end of next week to long-term care facility. 10/25: Patient remains in the intensive care unit on mechanical ventilation. Tidal volume 350, FiO2 60, PEEP 8. She is receiving hemodialysis this morning. Her heart rate remains elevated in the 130s. Pulmonary as started her on Cardizem at 60 mg 3 times daily which has not had any improved effect. We'll start the patient on Lopressor 25 mg twice daily. Patient has been afebrile, heart rate respiratory rate 32, blood pressure 151/91, pulse ox 98%. Patient is been transfuse 1 unit of packed RBCs today. Patient's mental status is improving and patient is able to follow simple commands. WBC 12.2, hemoglobin 6.3, platelet count 196. Sodium 135 otherwise looked lites are normal, BUN 48 creatinine 1.99. Blood sugars are running between 120 and 172. Levemir has been increased to 30 mg twice daily continue 15 units of NovoLog every 6 hours with scale. 10/26: Patient remains in intensive care unit, on mechanical ventilation with tidal volume 375, FiO2 50, PEEP of 8. Patient's heart rate remains elevated 120s and Lopressor increased to 50 mg twice daily. Patient seems to be quite anxious and depressed. We will decrease Seroquel to 50 mg twice daily and start patient on Lexapro. Patient received her first dose of Xanax this morning but this did not seem to help heart rate either. She has been afebrile, heart rate 128, blood pressure 149/79, pulse ox 93%. Repeat hemoglobin 7.3. Sodium 135, potassium 3.9, chloride 90, CO2 30, BUN 45 and creatinine 1.94. Blood sugar are improved running between 117-194. We will make further adjustments to insulin and to increase long-acting to 35 units twice daily and decrease NovoLog scheduled to 7 units and continue NovoLog scale. There are problems with patient's trach and consequently placed with [facility]. General surgery to reevaluate trach. 10/27: Patient is complaining of nausea today. Concerned that this is related to Lexapro. We will further decrease Seroquel to 50 mg at bedtime. Patient is being bladder scanned and last bladder scan wasn't 125 mL. She does not have Haley catheter. No fecal management system. She is having a bowel movement about 3 per day. Plan is for CPAP trial today. She is currently on mechanical ventilation with tidal volume 375, FiO2 50 and PEEP of 8. She has been afebrile, heart rate 105 which is much improved from the last few days. Blood pressure 145/88, pulse ox 94%. There is a new consult in place for Dr. Clemente regarding exchanging the trach and possible debridement at site. WBC 11.4, hemoglobin 8.2, blood count 218. Sodium 136, potassium 4.1, chloride 97, CO2 31, BUN 47 creatinine 1.97. Blood sugars running between 129 and 204. We have changed long acting insulin to 35 units twice daily and continue NovoLog 7 units every 6 hours and scale every 6 hours. Nephrology may be decreasing frequency of dialysis treatments. Anticipate probable discharge to long-term care next week. 10/28: Patient was complaining of nausea today which has resolved. CPAP trial will continue today. She is currently on mechanical ventilation with a tidal volume 375, FiO2 of 50, PEEP of 8. She is afebrile, heart rate 108 which continues to show improvement. Blood pressure 133/87, pulse ox 99%. Patient is able to follow commands. And answers appropriately with nodding her head. WBC 10.5, hemoglobin 8.0, potassium 4.6, BUN 46, creatinine 1.96. Patient is currently receiving hemodialysis. 10/29: Patient was found sitting up in bed. Able to answer some questions appropriately. Utilizing kim. Able to follow commands. Ann over elevated blood sugars. Levemir 35 units twice a day will continue at this with a 7 unit coverage. Patient remains afebrile. Heart rate 102, respirations 29, blood pressure 124/74, pulse ox 97% on mechanical ventilation. Mechanical ventilation settings with a tidal volume 375, FiO2 of 50 and a PEEP of 8. Family has been into see patient. Hemodialysis will be held today. 10/30: Patient remains in the ICU on mechanical ventilation. She is not requiring pressure support. She is on CPAP support. She is receiving hemodialysis this morning with plan to start a Friday schedule this week. Blood sugars are stable and running between 140 and 184. She is on tube feedings at goal and having bowel movements every 12 hours. Repeat blood work reveals WBC 8.9, hemoglobin 10.2, platelet count 258. Sodium 133, potassium 5.0, chloride 97, CO2 23, BUN 69 creatinine 2.67. 10/31: Patient is seen today in intensive care unit. She remains on mechanical ventilation with tidal volume 375, FiO2 45 of PEEP of 5. Patient is found sitting in a chair working with physical therapy. Patient is noted to have left arm weakness without pain and good sensation. She is not receiving dialysis today and will be started on Friday regime. Patient's heart rate is better controlled in the 80s, blood pressure 113/65, pulse ox 99%. Patient is been afebrile. Patient has been on cefepime. Repeat blood work reveals WBC 9.3, hemoglobin 6.9 and patient is transfused 1 unit of packed RBCs today. Platelet count 248. Electrolytes are within normal range, BUN 38 and creatinine 2.04. Her blood glucose running between 130 and 193. AST 38. Social work is working with the daughter regarding discharge planning. 11/01: A she was undergoing dialysis with plan for 3 L removed today and dialysis is scheduled Friday. She is in bed and appears to be comfortable. She is able to talk and express herself and is cognitively intact. She remains on mechanical ventilation. She has been afebrile, heart rate 107, blood pressure 115/85, pulse ox 99%. Repeat blood work reveals WBC 8.5, hemoglobin 7.5, platelet count 278. Sodium 136, potassium 4.8, chloride 100, CO2 27, BUN 55 creatinine 2.81. Blood sugar running between 114 and 185. Ca lcium 10.3, total bilirubin 0.2, AST 34, ALT 34, alkaline phosphatase 144. Social work is working on discharge planning which will be to [facility], [facility] or [facility]. 11/02: Patient remains in the intensive care unit on mechanical ventilation with tidal volume 375, FiO2 40, PEEP of 5. Patient's mental status continues to be improved. She has been afebrile, heart rate 97, blood pressure 144/86, pulse ox 98%. Repeat blood work reveals WBC 8.3, hemoglobin 7.2, platelet count 255. Sodium 135, potassium 4.5, chloride 98, CO2 20, BUN 42 and creatinine 2.36. Blood sugars are running between 124 278. She is scheduled for hemodialysis tomorrow with plan for 4 L to be removed. Social work is working on discharge plan and once patient has been accepted and insurance authorization is obtained if needed, patient will be discharged. 11/03: Patient remains in intensive care unit on mechanical ventilation patient is currently on pressure support of 15, CPAP of 5 and FiO2 of 40%. A trach collar is to be attempted today in order to get the patient discharged to [facility] facility. Land is for medical [place] on Friday if patient continues to improve. He has been afebrile, heart rate in the 80s, blood pressure 90/57, pulse ox 100%. Repeat blood work reveals WBC 7.5, hemoglobin 6.9, platelet count 255. Sodium 133, potassium 5.1, chloride 97, CO2 27, BUN 59 creatinine 3. Blood sugars up and running 117 164. 11/04 patient remains in ICU, this is day number 55, pulmonary is following closely, they have recommended fenestrated trach, for which Dr. warren is going to perform, patient is anticipated to be discharged to long-term care facility, most likely early next week. She is stable, with no new fevers, antibiotics has been completed, blood sugars are stable, hemoglobin 7.7, WBC 8.5, blood sugars running between 145-150, creatinine of 2.34 11/05: Patient remains in ICU, trach collar replaced by Dr. Zhang this a.m., patient's communicating with handwritten communication mentions that she has back pain, on IV Dilaudid still, we'll replace [place] 7.5, also cannot sleep, muscle relaxants started with cyclobenzaprine, where finalizing discharge planning, to subacute rehab long-term care no fever no chills, coughing a lot, with mucus production, suctioning on the trach when necessary by nursing staff, 11/06: Patient is still having refractory sleep, wakes up with chills and sweats, also. Alternating hot and cold, iron is suspected to be low, hemoglobin of 7.2, check for iron studies, on Ativan and aspirin, start melatonin 6 mg at bedtime, might need Zestril, however is on Seroquel. We'll going to increase Seroquel to 75 mg blood sugars are stable, no change in program today, pain control is better, using [place] 7.5. 11/07: Patient remains in the intensive care unit on trach collar at FiO2 of 35%, flow rate of 8. Patient states that she slept better last evening. We will add in consult for speech therapy to evaluate if patient can start on oral food. She is currently on tube feedings at goal. Repeat blood work reveals WBC 7.9, hemoglobin 8.0, platelet count 238. Sodium 130, potassium 3.9, chloride 93, CO2 28, BUN 48 creatinine 2.84. Capillary blood glucose running between 75 and 129. Iron 22, TIBC 244, iron saturation 9.0 to. Total bilirubin 0.1, AST is 26, ALT 27, alkaline phosphatase 115. TSH 1.7. 11/08: Social work is trying to determine discharge plan. Currently looking at in patient rehab facilities. Patient has been seen by speech therapy and approved for oral intake and she is having her first meal today. She is undergoing hemodialysis today. She's been afebrile, heart rate 88, blood pressure 155/96, pulse ox 94% on trach collar 35% FiO2. Blood sugars are running in the 70s and 80s. Patient is working with therapies. REVIEW OF SYSTEMS Constitutional: No fever, no chills, no night sweats. No weight change. Profound weakness, + significant fatigue no lethargy. Reported daytime sleepiness. EENT: No headache. No loss of vision. No loss of Hearing. No nasal drainage or congestion. No epistaxis. No sore throat. Lungs: No shortness of breath, cough, no sputum production. No wheezing. Cardiovascular: No chest pain, no lower extremity edema. No palpitations. No paroxysmal nocturnal dyspnea. No orthopnea. No lightheadedness or dizziness. No syncopal episodes. Abdominal: No abdominal pain. No nausea, vomiting. No diarrhea. No constipation. No bloody or tarry stools. No loss of appetite- peg tube. Genitourinary: No dysuria, increased frequency, urgency. No urinary retention. Minimal urine production Musculoskeletal: No myalgias. Noted muscle weakness, noted gait dysfunction, no frequent falls. No back pain. No neck pain. Integumentary: Positive wound-decubitus ulcer, trach wound. No rash or pruritus. No unusual bruising. No change in hair or nails. Neurologic: No aphasia. No facial droop. Noted change in mentation-back to baseline. No head injury. No headache. No paralysis. No paresthesia. Psychiatric: suspected depression. positive anxiety. Endocrine: Noted abnormal blood sugars-stable and monitored. PHYSICAL EXAMINATION Gen: This is is a 35-year-old black female, patient is on mechanical ventilation, and sitting in ICU bed undergoing HD. HEENT: Head is atraumatic, normocephalic. Pupils equal, round. Sclerae is anicteric. Eyes are open and tracking. Tracheostomy midline. NECK: Supple. No JVD. No lymphadenopathy. No thyromegaly. LUNGS: Lung sounds are clear to auscultation. No intercostal retractions. HEART: Regular rate and rhythm. No murmur. pvc monitor sinus tachycardia. ABDOMEN: Soft. Bowel sounds are present. No masses. No tenderness. EXTREMITIES: Trace bilateral pedal edema. No calf tenderness. NEUROLOGICAL: Patient is awake, alert, oriented x3 and able to follow commands, significant weakness. ASSESSMENT AND PLAN 1. Acute hypoxic respiratory failure secondary to Covid 19 pneumonia and possible bacterial pneumonia. Patient was intubated on September 11. She is status post 1 dose of Remdesivir and 1 dose of Tocilizumab. Continue Ventolin inhaler 4 times daily, Lovenox 30 mg subcu daily, supplements. Status post PEG tube and trach. Completed antibiotics. 2. Acute diabetic ketoacidosis secondary to Covid 19 pneumonia, uncontrolled with hyperglycemia. Levemir 35 units twice daily and scheduled NovoLog 7 units every 6 hours and continue NovoLog scale every 6 hours. 3. Metabolic encephalopathy secondary to Covid 19 and DKA. 4. Sepsis and septic shock secondary to Covid 19 pneumonia with multiorgan failure. Continue as in #1. 5. Acute metabolic acidosis secondary to acute DKA, Covid 19 and acute kidney injury. Renvela 1600 mg q6h. 6. Diabetes mellitus type 2 uncontrolled with A1c 13.6. Continue as above. 7. Hypophosphatemia status post replacement. 8. Hyperkalemia secondary to DKA, resolved. 9. Sinus tachycardia secondary to sepsis, volume deficiency. Patient is on Cardizem 60 mg 3 times daily, and Lopressor 50 mg twice daily. 10. Acute kidney injury secondary to ATN secondary to Covid 19 and DKA. Continue hemodialysis on Friday. 11. Citrobacter pneumonia versus MRSA pneumonia. Completed course of antibiotics. 12. Hypertension. 13. Morbid obesity with BMI of 53. 14. Situational depression and anxiety. Seroquel 75 mg at bedtime, continue Lexapro 10 mg daily and Xanax 0.25 mg twice daily as needed. 15. DVT prophylaxis. Lovenox. 16. GI prophylaxis. Protonix 40 mg IV push daily. 17. Stage IV pressure ulcer to trach site. Currently utilizing absorptive silver dressing. 18. Stage II decubitus ulcer to coccyx. 19. Critical illness polyneuropathy and myopathy. Continue physical therapy. 20. Anemia of chronic disease. Transfuse total of 3 units of packed RBCs, continue Aranesp 40 g every 7 days. CODE STATUS: Full code Prognosis guarded. DISCHARGE PLAN To be determined Impression and plan of care have been directed as dictated by the signing physician. Kimberly Boswell nurse practitioner acting as scribe for signing physician. Objective - Vital Signs Vital signs: Vital Signs Temp 98.6 F 11/08/20 08:00 Pulse 93 11/08/20 10:00 Resp 30 H 11/08/20 10:00 BP 146/80 11/08/20 10:00 Pulse Ox 87 L 11/08/20 10:00 Intake & Output 11/07/20 11/08/20 11/08/20 18:59 06:59 18:59 Intake Total 976 140 400 Output Total 0 0 0 Balance 976 140 400 Weight 97.4 kg Intake: Intake, IV Titration 100 Amount Sodium Ferric Gluconat- 100 Sucrose 125 mg In Sodium Chloride 0.9% 100 ml @ 100 mls/hr IVPB ONCE ONE Rx#:[id number] Oral 660 100 200 Tube Feeding 306 0 Blood Product 10 Other 40 100 Output: Urine 0 0 0 Other: Voiding Method External Catheter External Catheter # Voids 1 ABP, PAP, CO, CI - Last Documented Arterial Blood Pressure 136/76 - Labs CBC & Chem 7: 11/07/20 03:12 11/07/20 03:12 Labs: Abnormal Lab Results - Last 24 Hours (Table) 11/07/20 11/07/20 Range/Units 03:12 16:51 POC Glucose (mg/dL) 67 L (75-99) mg/dL Procalcitonin 3.92 H (0.02-0.09) ng/mL
[2020-11-08 17:34] LABS: Glucose,Whole Blood 79 mg/dL (75-99)
[2020-11-08] MEDS: ONDANSETRON 4 MG/2 ML VIAL IVP PRN (17:40)
[2020-11-08] MEDS: CYCLOBENZAPRINE 10 MG TAB PO SCH (21:00)
[2020-11-09 00:26] LABS: Glucose,Whole Blood 64 mg/dL (75-99)
[2020-11-09] MEDS: ALPRAZolam 0.25 MG TAB PO PRN (00:28)
[2020-11-09] MEDS: INSULIN ASPART (NovoLOG) 100 UNIT/ML VIAL SQ SCH ×8 (00:38→17:29)
[2020-11-09 00:49] LABS: Glucose,Whole Blood 68 mg/dL (75-99)
[2020-11-09 01:05] LABS: Glucose,Whole Blood 79 mg/dL (75-99)
[2020-11-09] MEDS ORDERED: DEXTROSE 50% SYRINGE 50 ML IVP ONE (05:03)
[2020-11-09 05:07] LABS: Glucose,Whole Blood 48 mg/dL (75-99)
[2020-11-09 05:27] LABS: Glucose,Whole Blood 125 mg/dL (75-99)
[2020-11-09] MEDS ORDERED: SODIUM BICARB 8.4% 50 ML SYR (1 MEQ/ML) IV STA (06:30)
[2020-11-09 06:36] LABS: Calcium 10.1 mg/dL (8.4-10.2); Potassium 3.8 mmol/L (3.5-5.1); Total Bilirubin 0.2 mg/dL (0.2-1.3); Total Protein 5.6 g/dL (6.3-8.2)
[2020-11-09] MEDS: HYDROcodone/APAP 7.5-325MG 1 EACH TAB PO PRN (06:55)
[2020-11-09] MEDS: NYSTATIN 100,000 UNIT/ML SUSP 500,000 UNIT/5 ML CUP PO SCH (06:55)
[2020-11-09] MEDS: diphenhydrAMINE 50 MG/ML 1 ML VIAL IVP PRN ×4 (06:56→21:14)
[2020-11-09] MEDS: SEVELAMER 800 MG TAB PO SCH ×3 (06:57→17:29)
[2020-11-09 07:09] LABS: Glucose,Whole Blood 74 mg/dL (75-99)
[2020-11-09] MEDS: INSULIN DETEMIR (LEVEMIR) 100 UNIT/ML SYR SQ SCH (07:20)
[2020-11-09] MEDS: ALBUTEROL HFA INHALER INHALATION SCH ×4 (07:50→20:30)
[2020-11-09] MEDS: METOPROLOL TARTRATE 50 MG TAB PO SCH ×2 (08:52→21:13)
[2020-11-09] MEDS: PANTOPRAZOLE 40 MG/10 ML VIAL IVP SCH ×2 (08:52→21:13)
[2020-11-09] MEDS: ASCORBIC ACID 500 MG TAB PO SCH ×2 (08:52→21:13)
[2020-11-09] MEDS: CHLORHEXIDINE GLUCONATE 15 ML CUP MUCOUS MEM SCH ×2 (08:53→21:15)
[2020-11-09] MEDS: ESCITALOPRAM 10 MG TAB PO SCH (08:54)
[2020-11-09] MEDS: DILTIAZEM ORAL 60 MG TAB PO SCH ×3 (08:54→21:26)
[2020-11-09] MEDS: ENOXAPARIN 30 MG/0.3 ML SYRINGE SQ SCH (08:54)
[2020-11-09] MEDS: NYSTATIN 100,000 UNIT/GM POWD 15 GM TOPICAL SCH ×2 (08:55→15:15)
[2020-11-09] MEDS: HYDROPHILIC CREAM 180 GM TUBE TOPICAL SCH (08:55)
--- NOTE | 2020-11-09 09:11 | P.PN ---
Subjective Patient is seen in follow-up for acute kidney injury. Oliguric. Status post tracheostomy and PEG tube placement this admission. Receiving tube feeding. Off vent. No changes overnight. Awaiting placement. Vital signs: Stable. General: The patient appeared well nourished and normally developed. HEENT: Tracheostomy noted. LUNGS: Breath sounds decreased. HEART: Regular rate and rhythm. Abdomen: Soft, no distention. EXTREMITITES: Trace edema. Objective - Vital Signs Vital signs: Vital Signs Temp 99.2 F 11/09/20 04:00 Pulse 110 H 11/09/20 08:00 Resp 16 11/09/20 08:00 BP 166/100 11/09/20 08:00 Pulse Ox 93 L 11/09/20 07:00 Intake & Output 11/08/20 11/09/20 11/09/20 18:59 06:59 18:59 Intake Total 3000 100 Output Total 0 300 0 Balance 3000 -200 0 Weight 97.4 kg Intake: Intake, IV Titration 100 Amount Sodium Ferric Gluconat- 100 Sucrose 125 mg In Sodium Chloride 0.9% 100 ml @ 100 mls/hr IVPB ONCE ONE Rx#:[id number] Oral 700 100 Hemodialysis 2000 Other 200 Output: Urine 0 300 0 Other: Voiding Method External Catheter # Voids 0 ABP, PAP, CO, CI - Last Documented Arterial Blood Pressure 136/76 - Labs CBC & Chem 7: 11/07/20 03:12 11/09/20 05:24 Labs: Abnormal Lab Results - Last 24 Hours (Table) 11/08/20 11/09/20 11/09/20 Range/Units 11:23 00:23 00:44 BUN (7-17) mg/dL Creatinine (0.52-1.04) mg/dL Glucose (74-99) mg/dL POC Glucose (mg/dL) 73 L 64 L 68 L (75-99) mg/dL Total Protein (6.3-8.2) g/dL Albumin (3.5-5.0) g/dL 11/09/20 11/09/20 11/09/20 Range/Units 05:02 05:24 05:25 BUN 25 H (7-17) mg/dL Creatinine 2.26 H (0.52-1.04) mg/dL Glucose 111 H (74-99) mg/dL POC Glucose (mg/dL) 48 L 125 H (75-99) mg/dL Total Protein 5.6 L (6.3-8.2) g/dL Albumin 3.0 L (3.5-5.0) g/dL 11/09/20 Range/Units 07:07 BUN (7-17) mg/dL Creatinine (0.52-1.04) mg/dL Glucose (74-99) mg/dL POC Glucose (mg/dL) 74 L (75-99) mg/dL Total Protein (6.3-8.2) g/dL Albumin (3.5-5.0) g/dL Assessment and Plan Plan: Assessment: 1. Acute kidney injury secondary to ATN secondary to COVID-19 and DKA. Baseline creatinine is near 1. Started on hemodialysis on September 14. Has p-cath. Oliguric. No hydronephrosis noted on kidney ultrasound. 2. DKA s/p insulin drip and IV fluids. 3. Acute hypoxic respiratory failure secondary to COVID-19 pneumonia. Status post tracheostomy this admission. 4. Metabolic acidosis secondary to acute kidney injury and DKA s/p bicarb drip. Improved postdialysis. 5. Hyponatremia, hypervolemic. Stable. 6. Hyperphosphatemia secondary to acute kidney injury. Maintained on Renvela. 7. Anemia of chronic illness and kidney disease. Maintained on Aranesp. Iron deficiency noted - s/p iv iron. Status post blood transfusion this admission. 8. Fluid overload. Improved with ultrafiltration. 9. Hypercalcemia. Patient is on daily vitamin D supplementation. Plan: Hemodialysis tomorrow. Maintain tube feeds. Avoid nephrotoxins. Continue to monitor renal function and urine output. Monitor for renal recovery. Await placement to ECF. Stopped vitamin D. Check further workup for hypercalcemia including PTH and vitamin D levels.
[2020-11-09 09:34] LABS: Glucose,Whole Blood 78 mg/dL (75-99)
--- NOTE | 2020-11-09 10:34 | P.PN ---
Subjective Progress Note Date: 11/09/20 Principal diagnosis: Acute hypoxemic respiratory failure secondary COVID-19 pneumonia, DKA The patient is seen today 11/09/2020 in follow-up in the intensive care unit. She has been here for 60 days. She is currently awake and alert in no acute distress. She is oriented 3. She is currently maintaining good O2 saturations in the 90s on 35% trach collar. She remains afebrile. Hemodynamically stable. Plan is for hemodialysis tomorrow. She is status post 3 units of packed red blood cells this admission. Her current hemoglobin is 8.0. Sodium 138. Potassium 3.8. Creatinine 2.26. Glucose 111. AST 28. ALT 26. Albumin 3.0. Yesterday the Castillo lift was utilized and she had sat up in a chair at the bedside for [address] See placed a fenestrated cannula within the tracheostomy to allow her to speak today. She remains on bronchodilators. Lovenox for DVT prophylaxis. Objective - Vital Signs Vital signs: Vital Signs Temp 99.2 F 11/09/20 04:00 Pulse 110 H 11/09/20 08:00 Resp 16 11/09/20 08:00 BP 166/100 11/09/20 08:00 Pulse Ox 93 L 11/09/20 07:00 Intake & Output 11/08/20 11/09/20 11/09/20 18:59 06:59 18:59 Intake Total 3000 100 Output Total 0 300 0 Balance 3000 -200 0 Weight 97.4 kg Intake: Intake, IV Titration 100 Amount Sodium Ferric Gluconat- 100 Sucrose 125 mg In Sodium Chloride 0.9% 100 ml @ 100 mls/hr IVPB ONCE ONE Rx#:[id number] Oral 700 100 Hemodialysis 2000 Other 200 Output: Urine 0 300 0 Other: Voiding Method External Catheter # Voids 0 ABP, PAP, CO, CI - Last Documented Arterial Blood Pressure 136/76 - Exam GENERAL EXAM: Awake, very pleasant 35-year-old female patient, looking around the room, responding and communicating by mouthing words oriented 3, currently on 35% trach collar HEAD: Normocephalic/atraumatic. EYES: Normal reaction of pupils, equal size. Conjunctiva pink, sclera white. NOSE: Clear with pink turbinates. THROAT: No erythema or exudates. NECK: No masses, no JVD, no thyroid enlargement, no adenopathy. Midline tracheostomy in place, patient currently has #6 Shiley cuffed tracheostomy tube in place CHEST: No chest wall deformity. Symmetrical expansion. Patient has right upper chest permacath hemodialysis catheter in place LUNGS: Equal air entry with bilateral crackles CVS: Regular rate and rhythm, normal S1 and S2, no gallops, no murmurs, no rubs ABDOMEN: Soft, nontender. No hepatosplenomegaly, normal bowel sounds, no guarding or rigidity. Peg tube in place, and is receiving tube feedings in the form of Nepro at 34 ML per hour EXTREMITIES: No clubbing, no edema edema involving upper and lower extremities noted no cyanosis, 2+ pulses and upper and lower extremities. MUSCULOSKELETAL: Muscle strength and tone normal. SPINE: No scoliosis or deformity SKIN: No rashes CENTRAL NERVOUS SYSTEM: awake and alert, oriented 3, communicates by pounding words, responding appropriately moving all 4 extremities - Labs CBC & Chem 7: 11/07/20 03:12 11/09/20 05:24 Labs: Abnormal Lab Results - Last 24 Hours (Table) 11/08/20 11/09/20 11/09/20 Range/Units 11:23 00:23 00:44 BUN (7-17) mg/dL Creatinine (0.52-1.04) mg/dL Glucose (74-99) mg/dL POC Glucose (mg/dL) 73 L 64 L 68 L (75-99) mg/dL Total Protein (6.3-8.2) g/dL Albumin (3.5-5.0) g/dL 11/09/20 11/09/20 11/09/20 Range/Units 05:02 05:24 05:25 BUN 25 H (7-17) mg/dL Creatinine 2.26 H (0.52-1.04) mg/dL Glucose 111 H (74-99) mg/dL POC Glucose (mg/dL) 48 L 125 H (75-99) mg/dL Total Protein 5.6 L (6.3-8.2) g/dL Albumin 3.0 L (3.5-5.0) g/dL 11/09/20 Range/Units 07:07 BUN (7-17) mg/dL Creatinine (0.52-1.04) mg/dL Glucose (74-99) mg/dL POC Glucose (mg/dL) 74 L (75-99) mg/dL Total Protein (6.3-8.2) g/dL Albumin (3.5-5.0) g/dL Assessment and Plan Assessment: 1 Acute hypoxic respiratory failure secondary to COVID-19 pneumonia/ARDS, transferred to the intensive care unit on 09/11/2020 and intubated and placed on mechanical ventilator on 09/11/2020. Patient received 1 dose of Remdesivir on 09/11/2020, however based on her quick progression of her hypoxic respiratory failure she received Tocilizumab 800 mg on 09/11/2020. Tracheostomy and PEG tube placed on 09/18/2020. Patient was successfully weaned from the ventilator support, she status post tracheostomy and PEG tube insertion, currently on 11/07/2020 patient is to 35% trach collar 2 Acinetobacter baumannii infection of the trach site. Completed a course of cefepime 3 Acute kidney injury related to ATN, nephrology has been consulted, ultrasound of the kidneys showed no evidence of hydronephrosis. Patient was initiated on hemodialysis on 09/14/2020. Permacath placed 09/20/2020. Patient is undergoing daily dialysis. 4 diabetes mellitus, insulin-dependent and the patient is currently on insulin sliding scale coverage with NovoLog 5 obesity with a BMI is down to 50 6 hypotension, recovered and the patient is currently on no pressors 7 Corneal injury, punctate keratitis, left eye, improved 8 Anemia of chronic disease, requiring transfusions of packed red blood cells, hemoglobin is 8.0 9 Generalized anxiety disorder. 10 hypertriglyceridemia, currently off propofol and will utilizing a combination of Precedex and fentanyl. 11 leukocytosis, resolved 13 encephalopathy/delirium , improved and resolved 14 History of hypertension Plan: The patient was seen and evaluated by Dr. See He did place a fenestrated cannula in the tracheostomy She is able to speak well holding her finger over it Maintaining good O2 saturations in the high 80s low 90s Continue 35% trach collar She is tolerating a soft diet Awaiting ECF placement with hemodialysis We'll continue to follow I, the cosigning physician, performed a history & physical examination of the patient. Lungs sounds are clear but diminished. Maintaining good O2 saturations in the 90s on 35% trach collar. I discussed the assessment and plan of care with my nurse practitioner, Kyara Concepcion. I attest to the above note as dictated by her.
[2020-11-09 11:49] LABS: Glucose,Whole Blood 102 mg/dL (75-99)
--- NOTE | 2020-11-09 14:02 | P.PN ---
Subjective Progress Note Date: 11/09/20 CHIEF COMPLAINT: COVID-19 pneumonia HISTORY OF PRESENT ILLNESS: Patient is in the ICU for COVID-19 pneumonia and respiratory failure. She is status post tracheostomy and PEG tube placement with Dr. Zhang. Patient is tolerating a full liquid diet. She remains off the tube feedings. Social work is working on discharge planning. Afebrile. PHYSICAL EXAM: VITAL SIGNS: Reviewed. GENERAL: Well-developed in no acute distress. HEENT: No sclera icterus. Extraocular movements grossly intact. Moist buccal mucosa. Head is atraumatic, normocephalic. Patient has wound located and skin breakdown at tracheostomy site. ABDOMEN: Soft. Nondistended. Nontender. PEG tube site clean dry and intact NEUROLOGIC: Awake and opens eyes ASSESSMENT: 1. Acute hypoxic respiratory failure with prolonged mechanical ventilation due to COVID-19 pneumonia status post tracheostomy placement 2. Severe protein calorie malnutrition status post PEG tube placement 3. Pressure wound at tracheostomy site PLAN: -Continue supportive care -Continue ICU management -Continue wound care at tracheostomy site -Patient is stable for discharge from surgical standpoint Physician Ambulatory Service Representative note has been reviewed by physician. Signing provider agrees with the documented findings, assessment, and plan of care. Objective - Vital Signs Vital signs: Vital Signs Temp 98.7 F 11/09/20 12:00 Pulse 101 H 11/09/20 13:00 Resp 19 11/09/20 13:00 BP 148/100 11/09/20 13:00 Pulse Ox 100 11/09/20 13:00 Intake & Output 11/08/20 11/09/20 11/09/20 18:59 06:59 18:59 Intake Total 3000 100 Output Total 0 300 0 Balance 3000 -200 0 Weight 97.4 kg Intake: Intake, IV Titration 100 Amount Sodium Ferric Gluconat- 100 Sucrose 125 mg In Sodium Chloride 0.9% 100 ml @ 100 mls/hr IVPB ONCE ONE Rx#:[id number] Oral 700 100 Hemodialysis 2000 Other 200 Output: Urine 0 300 0 Other: Voiding Method External Catheter # Voids 0 ABP, PAP, CO, CI - Last Documented Arterial Blood Pressure 136/76 - Labs CBC & Chem 7: 11/07/20 03:12 11/09/20 05:24 Labs: Abnormal Lab Results - Last 24 Hours (Table) 11/09/20 11/09/2011/09/21 Range/Units 00:23 00:44 05:02 BUN (7-17) mg/dL Creatinine (0.52-1.04) mg/dL Glucose (74-99) mg/dL POC Glucose (mg/dL) 64 L 68 L 48 L (75-99) mg/dL Total Protein (6.3-8.2) g/dL Albumin (3.5-5.0) g/dL 11/09/20 11/09/20 11/09/20 Range/Units 05:24 05:25 07:07 BUN 25 H (7-17) mg/dL Creatinine 2.26 H (0.52-1.04) mg/dL Glucose 111 H (74-99) mg/dL POC Glucose (mg/dL) 125 H 74 L (75-99) mg/dL Total Protein 5.6 L (6.3-8.2) g/dL Albumin 3.0 L (3.5-5.0) g/dL 11/09/20 Range/Units 11:47 BUN (7-17) mg/dL Creatinine (0.52-1.04) mg/dL Glucose (74-99) mg/dL POC Glucose (mg/dL) 102 H (75-99) mg/dL Total Protein (6.3-8.2) g/dL Albumin (3.5-5.0) g/dL
--- NOTE | 2020-11-09 14:41 | P.PN ---
Subjective Progress Note Date: 11/09/20 HISTORY OF PRESENT ILLNESS 35-year-old female patient of Dr. Arroyo with past medical history of type 2 diabetes comes in with acute shortness of breath associated with high light s ugars. Patient on admission was found to have a fever of 101.5 pulse rate 125 respiratory rate 20. Blood pressure 132/106. On chest x-ray obtained in the ER suggestive of bilateral infiltrates concerning for call with pneumonia. COVID PCR was positive. On admissions patient had an ABG with a pH of 7.14 pCO2 of 20, pO2 of 59, bicarb of 7. Patient's blood sugar on admission was 424 on assessment today patient's blood work patient had a sodium 135 potassium 5.4 chloride 123 bicarb less than 5 and creatinine 0.73. D-dimer was elevated on admission patient 9 28 patient given 1 L of IV fluids followed by normal saline running at 200 mL/h. Patient was positive for acetone on admission. She will anion gap closed and was switched to D5NS. Insulin drip was continued during the night and was switched to patient's home medication this morning. One dose of remdesiver was ordered. Apparently around noon, A- team was called on the patient secondary to hypoxia patient's oxygen saturation dropped to the 70s and 80s on 100% nonrebreather. Patient was switched to BiPAP on 18/12 and is doing better o FiO2 of 80%. ABG was obtained and ph was 7. 14 pCO2 of 28 bicarb of 7 pO2 of 17. Patient noted to have uncompensated metabolic acidosis with compensated respiratory alkalosis. Stat dose of 1 amp bicarb was given and followed by sodium bicarbonate drip. Insulin drip restarted. Patient's initiated on dexamethasone 6 mg IV twice a day. Potassium phosphate ordered as phosphorus is low. Patient's repeat blood gases suggest a pH of 7.25, CO2 32 pO2 of 72 bicarb 14. I will not normal saline at 100 mL/h as patient's anion gap has increased. Patient given 1 dose of 2 mg of morphine with improvement in respiratory rate. One dose of Ativan 0.5 mg was given. Xanax 0.25 twice a day along with Ativan 0.5 IV every 6 hours ordered for the patient. Vitals were evaluated patient pulse 129 [id number]. She was moved to the ICU. Precedex drip was initiated. Lopressor was initiated at 25 twice a day. Metoprolol tartrate 5 mg IV every 6 hours. Systolic blood pressure more than 160. Started chest x-ray was obtained and suggest stable bilateral consolidation suggestive of COVID-19 pneumonia. 09/12 patient is seen in the ICU is currently mechanically ventilated and sedated on vent settings of respiratory rate 36, tidal volume 375 FiO2 80% PEEP of 18.. Vital signs reviewed patient had a temp of 100.4 pulse 150 respiratory rate 36 oxygen saturation 95% on 80% on fio2 .'s labs are reviewed which patient had a d-dimer 1.84 that is increased to 14.3. Arterial Blood gas suggest ph 7.35, CO2 40, po2 62, . Her BMP suggest a sodium 135 potassium 3.7 chloride 112 bicarb 21 creatinine 1.57 for calcitonin is 3.5 CRP is increased from 8.78.2 LDH is increased to 2614. Patient remains on Pneumovax, propofol drip. Lovenox increased to 50 subcu twice a day. Patient received 2 L of IV fluids. Continue IV fluids at 100 mL/h. Bicarb drip discontinued patient initiated on Zosyn 3.375 every 8 hours. Continue insulin drip at 4 units per hour. Patient is currently in prone positioning 09/13: Patient evaluated in the ICU remains on Ventilation continues to be sedated, in prone position. Vent settings are respiratory rate 36, tidal vital 375, FiO2 70% PEEP of 18. ABG shows pO2 of 82, PCO2 of 39, pH is 7.19. Latest labs show WBC 11.1, hemoglobin 13.2, d-dimer still pending, but yesterday was up to 14.3. Creatinine up to 3.4, BUN 24 sodium 137, potassium 4.0. Patient's urine output has been low, nephrology on consult. Bicarb drip increased to 100 miles an hour, receiving another liter of normal saline, she did have a ultrasound that showed unremarkable bilateral kidneys. Repeat chest x-ray showed bilateral lung infiltrates that are stable. Anion gap has closed, will start Lantus 10 units at at bedtime Novolog every 6 hours. 09/14: Patient is seen in the ICU, still currently mechanically ventilated and sedated. She continues in the prone position. Her oxygen quickly drops if she is not in prone. Patient's kidney function has worsened. Laboratory values show creatinine of 4.87, BUN 33, LDH 2191, C-reactive protein 2.7. ABG shows pH 7.32, pO2 of 60, pCO2 43. Patient is making almost no urine overnight. Nephrology is following patient continues on cefepime for urinary tract infection, culture is still pending. Vascular has been consulted for placement of temporary hemodialysis catheter for plans for dialysis. 09/15: Patient evaluated in the ICU, continues to be mechanically ventilated and sedated on assist control ventilation rate of 36, tidal volume 375, FiO2 100% and PEEP of 18. ABG today shows pO2 58, pCO2 of 45, and pH 7.35. She continues on tube feedings. Yesterday patient underwent ultrasound-guided right internal jugular non-tunneled hemodialysis catheter placement. Patient underwent hemodialysis treatment last night and plans have another hemodialysis treatment today. She continues to make almost no urine. She continues on cefepime for antibiotic coverage, and continues on Decadron and Lovenox. 09/16: Patient seen on follow-up remains in the ICU mechanically ventilated and sedated. She continues on assist control rate of 36, tidal volume 375, FiO2 100% and PEEP of 20. PEEP had to be increased due to patient had to be in supine position for dialysis, will go back to prone position once dialysis is complete. ABG shows pH 7.32, pCO2 49, PaO2 61. Laboratory values showed WBC 11.2, hemoglobin 11, sodium 134, creatinine 4.44, BUN 38. Urine culture shows no growth, blood cultures show no growth to date. Repeat chest x-ray shows bilateral pleural effusions, correlate for ARDS, pulmonary edema, diffuse pneumonia, findings are stable from last exam. Patient does not require any pressors, blood pressure 133/57, heart rate 78. 5/16: Patient was evaluated in the ICU today for follow-up. She continues to be intubated and on mechanical ventilation. Current vent settings are tidal volume 375, FiO2 100% and PEEP of 20. ABG shows pH 7.37, pCO2 40, pO2 102. She continues with intermittent prone positioning. Patient continues to have almost no urine output, maintained on dialysis. Patient received dialysis yesterday without complication. Laboratory values revealed WBC 10.3, hemoglobin 10.4, sodium 132, potassium 3.1, BUN 33, creatinine 4.29, LDH 1913, C-reactive protein 1.3. Urine and sputum cultures are negative, blood cultures show no growth to date. Consult placed to dietary to start TPN[ ] 09/18: She remains in the intensive care unit intubated and on mechanical ventilation with tidal volume 375, FiO2 60 and PEEP of 20. Patient is being prone to daily at approximately 16 hours per day. Pulmonary medicine has added in Dr. Zhang to do PEG tube and trach today. Patient is not on vasopressors. Repeat blood work reveals WBC 12.6, hemoglobin 9.8, platelet count 212. Sodium 133, potassium 3.2, chloride 102, CO2 21, BUN 35 and creatinine 4.12. Blood sugar 126. Patient underwent hemodialysis yesterday with removal of 2 L and is scheduled again today with goal of 2-3 L and is scheduled again tomorrow. 09/19: She is scheduled for hemodialysis today and is off fentanyl temporarily. Patient is status post trach and PEG tube yesterday. And she remains on mechanical ventilation. Pulse ox 93-95%. She has been afebrile, heart rate 64, respiratory rate 36, blood pressure 115/50. Fentanyl is off to improve blood pressure for hemodialysis which is scheduled for today. Contacted vascular surgery about permanent hemodialysis catheter. Repeat blood work reveals WBC 14.3, hemoglobin 9.6, platelet count 200. D-dimer 6.48. LDH 1686. C-reactive protein 1.1. BUN 34 creatinine 3.81. Sodium 130, potassium 3.5, chloride 101, CO2 18. Blood sugars running between 101 198. Plan is to wean off Pneumovax today. Patient remains on insulin drip. Repeat chest x-ray reveals bilateral multifocal confluent opacities consistent with COVID-19. Some improved aeratio n periphery of the left lung and worsening opacities throughout the right lung. 09/20: She remains in the intensive care unit on mechanical ventilation. She has been afebrile, heart rate 65, respiratory rate 37, blood pressure 121/70, pulse ox 91-99%. Repeat blood work reveals WBC 14.5, hemoglobin 9.1, platelet count 216. D-dimer 6.13. Sodium 133, potassium 3.1, chloride 102, CO2 18, BUN 35 and creatinine 4.27. Blood sugars running between 128 and 143. LDH 1717. C- reactive protein 1.7. Patient remains on insulin drip which will be transitioned to NovoLog scale every 6 hours. Patient is scheduled for permanent hemodialysis catheter placement today with vascular surgery. Repeat chest x-ray reveals stable diffuse bilateral interstitial and airspace disease. Possible small right effusion. His work is following for transfer to [facility] facility. Do not anticipate discharge until next week. 09/21: Patient is undergoing hemodialysis. She remains on mechanical ventilation with tidal volume 375, FiO2 down to 45 and PEEP was decreased to 15. Patient is continued on propofol, fentanyl drips. She is on tube feedings at goal. Patient was taken off insulin drip yesterday and on scale only but blood sugars are running in the 200s, Levemir scheduled at bedtime will be added. Other blood work reveals WBC 13.3, hemoglobin 8.7, platelet count 192. Sodium 137, potassium 3.6, chloride 107, CO2 18, BUN 34 and creatinine 4.21. Repeat chest x-ray is stable. 09/22: She remains in the intensive care on mechanical ventilation with tidal volume 375, FiO2 of 50 and PEEP of 10. Pulse ox is running 96%. She is afebrile, heart rate in the 50s, respiratory rate 36, blood pressure 100/64. Repeat blood work reveals WBC 16.5, hemoglobin 8.9, platelet count 213. Sodium 134, potassium 3.7, chloride 103, CO2 21, BUN 34 and creatinine 3.89. Blood sugars running in the 200s to 324. Levemir increased to 16 units at bedtime and continue NovoLog scale every 6 hours. Patient is on tube feedings at goal. She has a Haley catheter in with a scant amount of dark/brown urine. Fecal management system is in place. Repeat chest x-ray reveals diffuse bilateral airspace infiltrates persist unchanged. Patient is scheduled for hemodialysis tomorrow morning on Friday. 09/23: Patient remains on mechanical ventilation with tidal volume 3.75, FiO2 50 and PEEP of 10. manager monitoring sinus rhythm. She has no urine output. Fecal management system is in place. She is undergoing dialysis at this time with plan for removal of 2-1/2 L. She has been afebrile, heart rate in the 50s, respiratory rate 36, blood pressure 108/76 and pulse ox 89%. WBC 13.6, hemoglobin 9.1, platelet count 194. Sodium 136, potassium 3.0 and was replaced, chloride 106, CO2 21, BUN 49 creatinine 5.31. Blood sugars are running between 182 and this morning 194. Patient was still in the 200s and 300s. Levemir last evening was increased to 16 units. Patient remains on propofol and fentanyl drips. Lovenox was increased to 60 mg twice daily. 09/24: PEEP was increased today to 20, tidal volume is at 375 and FiO2 of 50%. Patient has been afebrile. She has been started on levo fed. Repeat chest x- ray reveals bilateral multifocal confluent opacities consistent with Covid 19 or ARDS redemonstrated. Nephrology will plan dialysis for tomorrow for 3 L. Patient remains on propofol fentanyl and Nimbex. WBC 12.5, hemoglobin 9.8, platelet count 161. D-dimer 13.3. Sodium 132, potassium 3.4, chloride 102, CO2 20, BUN 48 and creatinine 4.67. Blood sugars extremely elevated to 96-409. LDH 2217. 09/25: Patient remains in the intensive care unit on mechanical ventilation with tidal volume 375, FiO2 50 and PEEP of 20. Patient is afebrile, heart rate 61, respiratory rate 36, blood pressure 102/56, pulse ox 97%. Repeat blood work reveals WBC 9.3, hemoglobin 8.5 and platelet count 171. Sodium 130, potassium 3.7, chloride 100, CO2 20, BUN 61 creatinine 5.65. Blood sugars have been elev ated up to 455. Levemir increased to 20 units twice daily, NovoLog 5 units every 6 hours and continue NovoLog scale. Patient is scheduled for hemodialysis today. Repeat chest x-ray reveals bilateral multifocal and confluent opacities. Decadron and Lovenox dosing change by pulmonary. Patient is off norepinephrine. 09/26: Patient remains in the intensive care unit on mechanical ventilation with tidal volume 375, FiO2 50 and PEEP of 15. She has been afebrile, heart rate 91, blood pressure 114/68, pulse ox 99%. manager monitoring sinus rhythm. 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 Sodium 134, potassium 3.6, chloride 102, CO2 22, BUN 41 creatinine 4.21. Patient has improved blood sugars this morning running 150s and 160s. Diabetic medications were adjusted yesterday. Patient is awake and alert and interacting. Yesterday, patient had PICC line inserted by interventional radiology. Repeat chest x-ray reveals diffuse airspace infiltrates in both lung ann appear to progress slightly in the interval. 09/27: Patient remains in intensive care unit on mechanical ventilation with improvement of settings with tidal volume 375, FiO2 decreased to 40 and PEEP decreased to 10. Patient is on hemodialysis every other day and plan to remove 3 L today. Patient is more awake and alert. She is slow to respond but is able to follow simple commands. Blood sugars are running between 84 and 123. Repeat blood work reveals WBC 7.1, hemoglobin 8.1, platelets 152. Sodium 135, potassium 3.6, chloride 103, CO2 21, BUN 53 and creatinine 5.88. Repeat chest x-ray revealed cardiomegaly and pulmonary edema. Patient is on tube feedings:. Patient is not require vasopressors and is off sedation. Fecal management system remains in place for brown liquid stool. C. difficile was negative. 09/28: Patient remains on mechanical ventilation with tidal volume 375, FiO2 increased to 80 and PEEP increased to 18. Patient had a rough night was very anxious, no pain. Xanax 0.25 mg 3 times daily was added. There is concern for pulmonary embolism for which patient was started on heparin drip, she is unable to undergo CAT scan. Venous Doppler bilateral lower extremities was nondiagnostic due to extensive edema in obese patient but minimal imaging of the popliteal veins does show flow. Repeat echocardiogram has been ordered. Cefepime has also been ordered at 1 g IV piggyback every 24 hours as well as vancomycin, pharmacy dosing. Patient is back on fentanyl drip, propofol drip and norepinephrine. Blood sugars are elevated and insulin Levemir will be i ncreased to 25 mg twice daily. Ferrlecit infusion has been ordered by nephrology for 4 days. Patient is undergoing hemodialysis today.temperature max 100.2, heart rate 134, respiratory rate 34, blood pressure 120/65, pulse ox 94%. manager monitoring is sinus tachycardia. Repeat blood work reveals WBC 16.9, hemoglobin 9.7, platelet count 216. D-dimer 8.81. Sodium 134, potassium 3.8, chloride 99, CO2 25, BUN 43 and creatinine 5.36. Blood sugars in the 200s. AST 40. 09/29 Patient had declined more last 48 hours require more sedation, patient is doing hemodialysis, respiratory failure is quite bit worse this time. Patient was inquired the pain is well back on fentanyl drip. Her vent set up with PEEP is limited but higher. No new finding on culture and her chest x-ray continues shows diffuse infiltrate persistent although there is a moderate interval improvement. 09/30 patient's was seen and evaluated. PEEP was reduced to 11 as patient is maintaining good saturation at the current vent settings. 10/01 patient was seen at bedside. She is currently on assist control rate of 28 white tidal volume 350 FiO2 50% and PEEP of 10 which has been reduced by pulmonary as patient name cleaning her oxygen saturation. Arm blood gas was obtained with a pH of 7.35 pCO2 37 pO2 of 63. She remains hemodynamically stable with no need for pressors. Labs were reviewed patient's BUN is 29 crea tinine 3.93 glucose 122 albumin 2.2 sodium 131 chloride 19 hemoglobin is downtrending with a Hb of 7.3 no leukocytosis 7.1. Patient's urine output is minimal at this time. Her rate has increased to 129 and is currently on positive fluid balance even with dialysis. Last dialysis was done yesterday. Continue enteral feeding currently at goal. Antibiotic has been discontinued and continues to remain on DEXA methicillin 4 mg IV daily. 10/02 patient continues to be on trach support with mechanical ventilation. Patient was evaluated by compliance consultant and was switched to VC control as patient was noted to be double stacking on and off throughout the night. Respiratory rate continue to 28 tidal volume increased to 400 with a PEEP for Dr. Downey. Patient is maintaining oxygen saturation 91% on the current setting. According to the nurse bedside patient saturation drops significantly or she is moved or her sedation is dropped. Patient is currently on propofol drip, fentanyl drip. She did underwent dialysis today and was able to maintain her low pressure without the need of pressors. Labs reviewed today suggest a WBC of 6.7 hemoglobin of 7.0 and d-dimer 3.9 bicarb 17 BUN 38 creatinine 4.8. LDH is 964. Sodium 1:30 likely secondary to volume overload. Urine sodium and urine osmolality ordered. Patient's glucose this morning is 146. Continue to remain on enteral feeding. Urine output is reduced. Fall catheter will be placed today. Continue to remain on dialysis. 10/03: Patient remains on mechanical ventilation and is back on propofol and fentanyl drips. Patient is currently on VC control with tidal volume 400, FiO2 55 and PEEP of 12. Patient still is not making any urine and is dialysis dependent with next treatment planned for tomorrow with removal of 3-3-1/2 L. PEG tube feedings are at goal. Fecal management system remains in place. At the time of evaluation, patient is off levophed. Repeat chest x-ray reveals stable diffuse bilateral airspace disease correlate for ARDS, pulmonary edema or diffuse pneumonia. Temperature max last evening was 101. Temperature currently 99, heart rate 106, respiratory rate 32, blood pressure 101/50, pulse ox 86%. Repeat blood work reveals WBC 6, hemoglobin 7.4, platelet count 160. D-dimer 4.05. Sodium 133, potassium 3.5, chloride 100, CO2 23, BUN 31 creatinine 3.8. Blood sugars are running between 100 and 170. Ferritin 1514. Liver function test normal. LDH 1016, C-reactive protein 13.6. Prognosis remains guarded. 10/04: Patient remains intubated on mechanical ventilation with tidal volume 400, FiO2 65, PEEP of 14. Patient continues to run fevers and repeat blood culture and urine and urine culture ordered for today. Haley catheter has been removed this patient has no significant urine output at about 20 mL per shift. BladderScan is monitored for greater than 300 and the patient is straight cathed. Hemoglobin is 6.8 and she has been ordered 41 unit of packed RBCs today. She is currently on propofol and fentanyl drips. She is scheduled for hemodialysis today. WBC 4.5, hemoglobin 6.8, platelet count 151. D-dimer 3.28. Sodium 132, potassium 4.1, chloride 100, CO2 22, BUN 37 creatinine 4.74. Blood sugars running between 97 and 110. Ferritin 1801. LDH 859. C-reactive protein 14.4. Chest x-ray reveals correlate for pneumonia, edema, ARDS. Prognosis remains guarded. 10/05: Patient remains in intensive care unit currently on mechanical ventilation with tidal volume 400, FiO2 was increased to 100 and PEEP is at 14. She continues to run fevers which have worsened with temperature max 103.1. She has been tachycardic in the 130s, blood pressure is marginal but not on vasopressors. Pulse ox currently 92%. Repeat blood work reveals WBC 5.5, hemoglobin 7.6, platelet count 190. D-dimer 2.7, ferritin 1770, LDH 932, C- reactive protein 21.4. Blood sugars are running between 100 1669. Electrolytes are normal. BUN 27 and creatinine 3.79. Pancultures were done yesterday including a straight cath for urine culture, sputum culture and blood culture. Arterial line was removed as well as midline. She is currently on propofol, fen tanyl and started on Nimbex today. 10/06: Patient remains in the intensive care unit. Today patient in prone position and remains on mechanical ventilation with tidal volume 350, FiO2 65 and PEEP of 14. Her last documented fever was yesterday at 2 PM. Heart rate is in the 120s, respiratory rate 32, pulse ox 88-92%. CBC is unremarkable. Electrolytes are normal. BUN 30 creatinine 2.93. Blood sugars are running between 135 and 164. Cultures from October 04: Blood culture no growth, sputum culture finalized, urine culture finalized. Catheter tip culture is in process. Repeat chest x-ray shows bilateral interstitial infiltrates. Patient is on tube feedings of Nepro at goal of 30 ML's per hour. Patient underwent dialysis yesterday and is scheduled for repeat dialysis today. 10/07: Patient maintains in the intensive care unit intubated and on mechanical ventilation. She is receiving hemodialysis this morning has been every day. Plan is to remove 2-1/2 L today. Vent settings have changed today with tidal volume 350, FiO2 was increased to 100% and PEEP remains at 14. She has been continued on Nimbex, fentanyl, norepinephrine and propofol. Plan is to prone position patient following dialysis. Repeat chest x-ray reveals worsening interstitial infiltrates. BUN is 26 and creatinine 2.59. LDH 955, C-reactive protein 22.1. Prognosis remains poor. 10/08: Patient remains in intensive care unit intubated and on mechanical ventilation with tidal volume 350, FiO2 60, PEEP of 14. She is pronating today. She is scheduled for hemodialysis on a daily basis. She has been afebrile, heart rate 112, respiratory rate 36, blood pressure 161/88, pulse ox 93%. Repeat blood work reveals WBC 9.9, hemoglobin 9.1, platelet count 320. Sodium 133, potassium 5.3, chloride 100, CO2 20, BUN 29 creatinine 2.44. Blood sugar running between 102 and 139. LDH 1026, C-reactive protein 19.7. 10/09: Patient is undergoing dialysis this morning. She continues to be intubated and on mechanical ventilation with tidal volume 350, 270 and PEEP of 14. Patient is also on propofol, Nimbex, norepinephrine and fentanyl drips. Repeat chest x-ray reveals persistent bilateral multifocal and confluent opacities consistent with Covid 19. She is afebrile, heart rate 116, respiratory rate 36, blood pressure 120/65, pulse ox 91%. Repeat blood work reveals WBC 5.4, hemoglobin 9.2, platelet count 216. D-dimer 2.67, ferritin 2568, LDH 794, C- reactive protein 13.9. Blood sugars have been running 90-104. Creatinine 1.64. She is on daily dialysis treatment. 10/10: She remains in the intensive care unit. She is now out of isolation as a repeat Covid test came back negative. She remains on mechanical ventilation with tidal volume 350, FiO2 70 and PEEP of 14. Patient is also on Nimbex, propofol, norepinephrine, fentanyl drips. She is on PEG tube feedings at goal and tolerating well. Repeat blood work reveals WBC 7.8, hemoglobin 7.5, platelet count 267. Sodium 139, potassium 3.9, chloride 109, CO2 20, BUN 20 creatinine 1.29. Blood sugars are running between 76 and 102. Scheduled Aiayna Log decreased to 3 units. Repeat chest x-ray reveals moderate cardiomegaly and continued pulmonary edema. Slight interval improvement. Patient is continued on daily hemodialysis. 10/11: Patient remains in intensive care unit on mechanical ventilation with tidal volume 325, FiO2 70, PEEP 14. She is currently being prone. She underwent hemodialysis this morning with removal of 4 L of fluid with plan to continue daily treatment. She is currently on Nimbex, fentanyl and propofol. No vasopressor at this time. Fecal management system remains in place. She is on tube feedings currently at hold due to prone positioning. Patient has been afebrile, heart rate 116, respiratory rate 36, blood pressure 100/58, pulse ox 93-96%. Repeat blood work reveals WBC 9.3, hemoglobin 8.1, platelet count 276. Sodium 136, potassium 4.3, chloride 103, CO2 20, BUN 20 creatinine 1.14. Blood sugars running between 133 and 202. 10/12: Patient remains in the intensive care unit. She is undergoing hemodialy sis this morning. She's been afebrile, heart rate in the 120s, respiratory rate 32, blood pressure 102/65. She is not on vasopressors. She is continued on Nimbex, fentanyl and propofol. Vent settings are currently tidal volume 325, FiO2 70, PEEP 14. Total platelet count 273. Sodium 133, potassium 4.7, chloride 100, CO2 19, BUN 21 creatinine 0.91. Blood sugars running between 121 and 143. 10/13: Patient remain in the ICU she is on hemodialysis daily, she is still on the vent with a PEEP of 14 and FiO2 of 70. Her oxygenation is marginal pulse rate still high. Patient had scratched cornea was seen in ophthalmology decided to keep doing eyedrops along with eye patch at this point. Prognosis still very bad this point. 10/14: She remains on mechanical ventilation with tidal volume 325, FiO2 70% and PEEP of 14. She did require label fed last evening for about 6 hours. She did not tolerate pronating yesterday. She is undergoing dialysis this morning with plan for removal of 4 L. Blood sugars have been low and IV fluids changed to D10 until blood sugars have recovered. Levemir and scheduled NovoLog discontinued. Patient is on tube feedings at goal there's been no change in th is. 10/15 patient remains on mechanical ventilation in the intensive care unit. FiO2 still at 70%, PEEP of 18. Blood sugars have improved since medications were adjusted. White blood cells 33.9, hemoglobin 8.5, sodium 135, BUN 19, creatinine 0.96. Patient to receive dialysis again today. Patient did run a low-grade fever throughout the night and pro calcitonin level is ordered. Chest x-ray showed continued diffuse bilateral airspace disease. Patient remains on tube feedings at goal. 10/16: Patient remains on mechanical ventilation with tidal volume 300, FiO2 70, PEEP of 15. Fecal management system is out. She is currently on low dose of norepinephrine. She is also on fentanyl drip, propofol drip, rocuronium drip. Heart rate is running in the 130s, sinus rhythm, blood pressure 121/63, pulse ox 95%. Patient is been afebrile. Repeat blood work reveals WBC 18.9, hemoglobin 7.5, platelet count 291. Sodium 135, potassium 4.2, chloride 101, CO2 19, BUN 25 and creatinine 1.36. Blood sugars are running between 143 and 199. Patient is on scale insulin only. Repeat chest x-ray reveals persistent bilateral multifocal and completed opacities consistent with Covid 19. 10/17: Patient remains on mechanical ventilation with tidal volume 300, FiO2 50, PEEP of 14. She is currently receiving hemodialysis. The patient is having yellow-colored drainage from the trach site. This is going to be culture today. Repeat blood work reveals WBC of 24, hemoglobin 7.3 and platelet count 310. Sodium 136, potassium 4.1, chloride 101, CO2 19, BUN 24 creatinine 1.43. Blood sugar 139. Capillary blood glucose running 147 and 189. Repeat chest x-ray is unchanged. Patient had increased respiratory rate 40s and 50s with oxygen saturation of 87 and now was increased and Seroquel added this morning. Prognosis remains guarded. 10/18: Patient remains on mechanical ventilation with tidal volume 300, FiO2 60, PEEP has been decreased to 12. Patient will need a PEEP of 8 in order to tra nsfer to long-term care. She is currently on fentanyl drip and Precedex drip. Patient is tracking when her name is stated. She seems to be slightly improved today. Patient has been afebrile, heart rate 106, respiratory rate 32, blood pressure 110/61, pulse ox 98%. Repeat blood work reveals WBC 30.3, hemoglobin 7.2, platelet count 350. Sodium 139, potassium 4.2, chloride 103, CO2 20, BUN 23 creatinine 1.79. Blood sugars are increasing running up 299. Patient will be placed on Levemir. Secretions from tracheotomy sent for culture and in process. She is currently undergoing hemodialysis. 10/23: Patient remains in the intensive care unit on mechanical ventilation with tidal volume 300, FiO2 65 and PEEP of 10. manager monitoring has been in a sinus rhythm. Patient does open her eyes and appears to be tracking. Blood sugars have been elevated. Levemir will be increased to 40 units daily and scheduled NovoLog increased to 12 units and continue NovoLog every 6 hours per scale. Patient is receiving hemodialysis today. She is not currently on vasopressors. Patient is on Precedex drip only. Antibiotics in the form of cefepime were started on October 18. Patient has been afebrile, heart rate 126, respiratory rate 36, blood pressure 163/105. Pulse ox 91%. Repeat blood work reveals WBC 16.0, hemoglobin 7.2, platelet count 208. Electrolytes are within normal limits. BUN 62 and creatinine 2.43. Blood sugars running between 259-321. Most recent blood culture from [facility] 20 is no growth at 24 hours. Repeat chest x-ray reveals cardiomegaly and persistent bilateral pulmonary edema. 10/24: Patient is awake, eyes are open and tracking, she is able to follow simple commands. Severe generalized weakness noted. Precedex gtt has been discontinued. Patient is receiving hemodialysis. Her blood sugars have remained elevated for which Levemir increased to 25 units twice daily along with 15 units of NovoLog every 6 hours along with scale. Tidal volume 330, FiO2 60, PEEP of 8. manager stars and long term care social worker following closely. Anticipate possible discharge by the end of next week to long-term care facility. 10/25: Patient remains in the intensive care unit on mechanical ventilation. Tidal volume 350, FiO2 60, PEEP 8. She is receiving hemodialysis this morning. Her heart rate remains elevated in the 130s. Pulmonary as started her on Cardizem at 60 mg 3 times daily which has not had any improved effect. We'll start the patient on Lopressor 25 mg twice daily. Patient has been afebrile, heart rate respiratory rate 32, blood pressure 151/91, pulse ox 98%. Patient is been transfuse 1 unit of packed RBCs today. Patient's mental status is improving and patient is able to follow simple commands. WBC 12.2, hemoglobin 6.3, platelet count 196. Sodium 135 otherwise looked lites are normal, BUN 48 creatinine 1.99. Blood sugars are running between 120 and 172. Levemir has been increased to 30 mg twice daily continue 15 units of NovoLog every 6 hours with scale. 10/26: Patient remains in intensive care unit, on mechanical ventilation with tidal volume 375, FiO2 50, PEEP of 8. Patient's heart rate remains elevated 120s and Lopressor increased to 50 mg twice daily. Patient seems to be quite anxious and depressed. We will decrease Seroquel to 50 mg twice daily and start patient on Lexapro. Patient received her first dose of Xanax this morning but this did not seem to help heart rate either. She has been afebrile, heart rate 128, blood pressure 149/79, pulse ox 93%. Repeat hemoglobin 7.3. Sodium 135, potassium 3.9, chloride 90, CO2 30, BUN 45 and creatinine 1.94. Blood sugar are improved running between 117-194. We will make further adjustments to insulin and to increase long-acting to 35 units twice daily and decrease NovoLog scheduled to 7 units and continue NovoLog scale. There are problems with patient's trach and consequently placed with [facility]. General surgery to reevaluate trach. 10/27: Patient is complaining of nausea today. Concerned that this is related to Lexapro. We will further decrease Seroquel to 50 mg at bedtime. Patient is being bladder scanned and last bladder scan wasn't 125 mL. She does not have Haley catheter. No fecal management system. She is having a bowel movement about 3 per day. Plan is for CPAP trial today. She is currently on mechanical ventilation with tidal volume 375, FiO2 50 and PEEP of 8. She has been afebrile, heart rate 105 which is much improved from the last few days. Blood pressure 145/88, pulse ox 94%. There is a new consult in place for Dr. Clemente regarding exchanging the trach and possible debridement at site. WBC 11.4, hemoglobin 8.2, blood count 218. Sodium 136, potassium 4.1, chloride 97, CO2 31, BUN 47 creatinine 1.97. Blood sugars running between 129 and 204. We have changed long acting insulin to 35 units twice daily and continue NovoLog 7 units every 6 hours and scale every 6 hours. Nephrology may be decreasing frequency of dialysis treatments. Anticipate probable discharge to long-term care next week. 10/28: Patient was complaining of nausea today which has resolved. CPAP trial will continue today. She is currently on mechanical ventilation with a tidal volume 375, FiO2 of 50, PEEP of 8. She is afebrile, heart rate 108 which continues to show improvement. Blood pressure 133/87, pulse ox 99%. Patient is able to follow commands. And answers appropriately with nodding her head. WBC 10.5, hemoglobin 8.0, potassium 4.6, BUN 46, creatinine 1.96. Patient is currently receiving hemodialysis. 10/29: Patient was found sitting up in bed. Able to answer some questions appropriately. Utilizing kim. Able to follow commands. Ann over elevated blood sugars. Levemir 35 units twice a day will continue at this with a 7 unit coverage. Patient remains afebrile. Heart rate 102, respirations 29, blood pressure 124/74, pulse ox 97% on mechanical ventilation. Mechanical ventilation settings with a tidal volume 375, FiO2 of 50 and a PEEP of 8. Family has been into see patient. Hemodialysis will be held today. 10/30: Patient remains in the ICU on mechanical ventilation. She is not requiring pressure support. She is on CPAP support. She is receiving hemodialysis this morning with plan to start a Friday schedule this week. Blood sugars are stable and running between 140 and 184. She is on tube feedings at goal and having bowel movements every 12 hours. Repeat blood work reveals WBC 8.9, hemoglobin 10.2, platelet count 258. Sodium 133, potassium 5.0, chloride 97, CO2 23, BUN 69 creatinine 2.67. 10/31: Patient is seen today in intensive care unit. She remains on mechanical ventilation with tidal volume 375, FiO2 45 of PEEP of 5. Patient is found sitting in a chair working with physical therapy. Patient is noted to have left arm weakness without pain and good sensation. She is not receiving dialysis today and will be started on Friday regime. Patient's heart rate is better controlled in the 80s, blood pressure 113/65, pulse ox 99%. Patient is been afebrile. Patient has been on cefepime. Repeat blood work reveals WBC 9.3, hemoglobin 6.9 and patient is transfused 1 unit of packed RBCs today. Platelet count 248. Electrolytes are within normal range, BUN 38 and creatinine 2.04. Her blood glucose running between 130 and 193. AST 38. Social work is working with the daughter regarding discharge planning. 11/01: A she was undergoing dialysis with plan for 3 L removed today and dialysis is scheduled Friday. She is in bed and appears to be comfortable. She is able to talk and express herself and is cognitively intact. She remains on mechanical ventilation. She has been afebrile, heart rate 107, blood pressure 115/85, pulse ox 99%. Repeat blood work reveals WBC 8.5, hemoglobin 7.5, platelet count 278. Sodium 136, potassium 4.8, chloride 100, CO2 27, BUN 55 creatinine 2.81. Blood sugar running between 114 and 185. Ca lcium 10.3, total bilirubin 0.2, AST 34, ALT 34, alkaline phosphatase 144. Social work is working on discharge planning which will be to [facility], [facility] or [facility]. 11/02: Patient remains in the intensive care unit on mechanical ventilation with tidal volume 375, FiO2 40, PEEP of 5. Patient's mental status continues to be improved. She has been afebrile, heart rate 97, blood pressure 144/86, pulse ox 98%. Repeat blood work reveals WBC 8.3, hemoglobin 7.2, platelet count 255. Sodium 135, potassium 4.5, chloride 98, CO2 20, BUN 42 and creatinine 2.36. Blood sugars are running between 124 278. She is scheduled for hemodialysis tomorrow with plan for 4 L to be removed. Social work is working on discharge plan and once patient has been accepted and insurance authorization is obtained if needed, patient will be discharged. 11/03: Patient remains in intensive care unit on mechanical ventilation patient is currently on pressure support of 15, CPAP of 5 and FiO2 of 40%. A trach collar is to be attempted today in order to get the patient discharged to [facility] care facility. Land is for medical [place] on Friday if patient continues to improve. He has been afebrile, heart rate in the 80s, blood pressure 90/57, pulse ox 100%. Repeat blood work reveals WBC 7.5, hemoglobin 6.9, platelet count 255. Sodium 133, potassium 5.1, chloride 97, CO2 27, BUN 59 creatinine 3. Blood sugars up and running 117 164. 11/04 patient remains in ICU, this is day number 55, pulmonary is following closely, they have recommended fenestrated trach, for which Dr. warren is going to perform, patient is anticipated to be discharged to long-term care facility, most likely early next week. She is stable, with no new fevers, antibiotics has been completed, blood sugars are stable, hemoglobin 7.7, WBC 8.5, blood sugars running between 145-150, creatinine of 2.34 11/05: Patient remains in ICU, trach collar replaced by Dr. Zhang this a.m., patient's communicating with handwritten communication mentions that she has back pain, on IV Dilaudid still, we'll replace Concord 7.5, also cannot sleep, muscle relaxants started with cyclobenzaprine, where finalizing discharge planning, to subacute rehab long-term care no fever no chills, coughing a lot, with mucus production, suctioning on the trach when necessary by nursing staff, 11/06: Patient is still having refractory sleep, wakes up with chills and sweats, also. Alternating hot and cold, iron is suspected to be low, hemoglobin of 7.2, check for iron studies, on Ativan and aspirin, start melatonin 6 mg at bedtime, might need Zestril, however is on Seroquel. We'll going to increase Seroquel to 75 mg blood sugars are stable, no change in program today, pain control is better, using Concord 7.5. 11/07: Patient remains in the intensive care unit on trach collar at FiO2 of 35%, flow rate of 8. Patient states that she slept better last evening. We will add in consult for speech therapy to evaluate if patient can start on oral food. She is currently on tube feedings at goal. Repeat blood work reveals WBC 7.9, hemoglobin 8.0, platelet count 238. Sodium 130, potassium 3.9, chloride 93, CO2 28, BUN 48 creatinine 2.84. Capillary blood glucose running between 75 and 129. Iron 22, TIBC 244, iron saturation 9.0 to. Total bilirubin 0.1, AST is 26, ALT 27, alkaline phosphatase 115. TSH 1.7. 11/08: Social work is trying to determine discharge plan. Currently looking at in patient rehab facilities. Patient has been seen by speech therapy and approved for oral intake and she is having her first meal today. She is undergoing hemodialysis today. She's been afebrile, heart rate 88, blood pressure 155/96, pulse ox 94% on trach collar 35% FiO2. Blood sugars are running in the 70s and 80s. Patient is working with therapies. 11/10: Patient is off tube feedings completely and taking all oral nutrition. Dr. See stopped the scheduled Levemir is now blood sugars are on the low side. Patient states she is sleeping well. Seroquel has been completely discontinued. She has been afebrile, heart rate 96, blood pressure 124/78, pulse ox 96% on trach earlier at 35 FiO2. Repeat blood work reveals sodium 138, potassium 3.8, chloride 106, CO2 26, BUN 25 and creatinine 2.26. Blood sugars running between 48 and 125. plier worker is trying to make placement for the patient for rehab. REVIEW OF SYSTEMS Constitutional: No fever, no chills, no night sweats. No weight change. Profound weakness, + significant fatigue no lethargy. Reported daytime sleepiness. EENT: No headache. No loss of vision. No loss of Hearing. No nasal drainage or congestion. No epistaxis. No sore throat. Lungs: No shortness of breath, cough, no sputum production. No wheezing. Cardiovascular: No chest pain, no lower extremity edema. No palpitations. No paroxysmal nocturnal dyspnea. No orthopnea. No lightheadedness or dizziness. No syncopal episodes. Abdominal: No abdominal pain. No nausea, vomiting. No diarrhea. No constipation. No bloody or tarry stools. No loss of appetite- peg tube. Genitourinary: No dysuria, increased frequency, urgency. No urinary retention. Minimal urine production Musculoskeletal: No myalgias. Noted muscle weakness, noted gait dysfunction, no frequent falls. No back pain. No neck pain. Integumentary: Positive wound-decubitus ulcer, trach wound. No rash or pruritus. No unusual bruising. No change in hair or nails. Neurologic: No aphasia. No facial droop. Noted change in mentation-back to baseline. No head injury. No headache. No paralysis. No paresthesia. Psychiatric: suspected depression. positive anxiety. Endocrine: Noted abnormal blood sugars-stable and monitored. PHYSICAL EXAMINATION Gen: This is is a 35-year-old black female, patient is on mechanical ventilat ion, and sitting in ICU bed. HEENT: Head is atraumatic, normocephalic. Pupils equal, round. Sclerae is anicteric. Eyes are open and tracking. Tracheostomy midline. NECK: Supple. No JVD. No lymphadenopathy. No thyromegaly. LUNGS: Lung sounds are clear to auscultation. No intercostal retractions. HEART: Regular rate and rhythm. No murmur. manager monitoring sinus tachycardia. ABDOMEN: Soft. Bowel sounds are present. No masses. No tenderness. EXTREMITIES: Trace bilateral pedal edema. No calf tenderness. NEUROLOGICAL: Patient is awake, alert, oriented x3 and able to follow commands, significant weakness. ASSESSMENT AND PLAN 1. Acute hypoxic respiratory failure secondary to Covid 19 pneumonia and possible bacterial pneumonia. Patient was intubated on September 11. She is status post 1 dose of Remdesivir and 1 dose of Tocilizumab. Continue Ventolin inhaler 4 times daily, Lovenox 30 mg subcu daily, supplements. Status post PEG tube and trach. Completed antibiotics. 2. Acute diabetic ketoacidosis secondary to Covid 19 pneumonia, uncontrolled with hyperglycemia. Levemir discontinued, continue scheduled NovoLog 7 units every 6 hours and continue NovoLog scale every 6 hours. 3. Metabolic encephalopathy secondary to Covid 19 and DKA. 4. Sepsis and septic shock secondary to Covid 19 pneumonia with multiorgan failure. Continue as in #1. 5. Acute metabolic acidosis secondary to acute DKA, Covid 19 and acute kidney injury. Renvela 1600 mg q6h. 6. Diabetes mellitus type 2 uncontrolled with A1c 13.6. Continue as above. 7. Hypophosphatemia status post replacement. 8. Hyperkalemia secondary to DKA, resolved. 9. Sinus tachycardia secondary to sepsis, volume deficiency. Patient is on Cardizem 60 mg 3 times daily, and Lopressor 50 mg twice daily. 10. Acute kidney injury secondary to ATN secondary to Covid 19 and DKA. Contin ue hemodialysis on Friday. 11. Citrobacter pneumonia versus MRSA pneumonia. Completed course of antibiotics. 12. Hypertension. 13. Morbid obesity with BMI of 53. 14. Situational depression and anxiety. Seroquel discontinued, continue Lexapro 10 mg daily and Xanax 0.25 mg twice daily as needed. 15. DVT prophylaxis. Lovenox. 16. GI prophylaxis. Protonix 40 mg IV push daily. 17. Stage IV pressure ulcer to trach site. Currently utilizing absorptive silver dressing. 18. Stage II decubitus ulcer to coccyx. 19. Critical illness polyneuropathy and myopathy. Continue physical therapy. 20. Anemia of chronic disease. Transfuse total of 3 units of packed RBCs, continue Aranesp 40 g every 7 days. CODE STATUS: Full code Prognosis guarded. DISCHARGE PLAN To be determined Impression and plan of care have been directed as dictated by the signing physician. Kimberly Boswell nurse practitioner acting as scribe for signing physician. Objective - Vital Signs Vital signs: Vital Signs Temp 99.0 F 11/09/20 09:00 Pulse 112 H 11/09/20 10:00 Resp 25 H 11/09/20 10:00 BP 146/94 11/09/20 10:00 Pulse Ox 89 L 11/09/20 10:00 Intake & Output 11/08/20 11/09/20 11/09/20 18:59 06:59 18:59 Intake Total 3000 100 Output Total 0 300 0 Balance 3000 -200 0 Weight 97.4 kg Intake: Intake, IV Titration 100 Amount Sodium Ferric Gluconat- 100 Sucrose 125 mg In Sodium Chloride 0.9% 100 ml @ 100 mls/hr IVPB ONCE ONE Rx#:[id number] Oral 700 100 Hemodialysis 2000 Other 200 Output: Urine 0 300 0 Other: Voiding Method External Catheter # Voids 0 ABP, PAP, CO, CI - Last Documented Arterial Blood Pressure 136/76 - Labs CBC & Chem 7: 11/07/20 03:12 11/09/20 05:24 Labs: Abnormal Lab Results - Last 24 Hours (Table) 11/08/20 11/09/20 11/09/20 Range/Units 11:23 00:23 00:44 BUN (7-17) mg/dL Creatinine (0.52-1.04) mg/dL Glucose (74-99) mg/dL POC Glucose (mg/dL) 73 L 64 L 68 L (75-99) mg/dL Total Protein (6.3-8.2) g/dL Albumin (3.5-5.0) g/dL 11/09/20 11/09/20 11/09/20 Range/Units 05:02 05:24 05:25 BUN 25 H (7-17) mg/dL Creatinine 2.26 H (0.52-1.04) mg/dL Glucose 111 H (74-99) mg/dL POC Glucose (mg/dL) 48 L 125 H (75-99) mg/dL Total Protein 5.6 L (6.3-8.2) g/dL Albumin 3.0 L (3.5-5.0) g/dL 11/09/20 Range/Units 07:07 BUN (7-17) mg/dL Creatinine (0.52-1.04) mg/dL Glucose (74-99) mg/dL POC Glucose (mg/dL) 74 L (75-99) mg/dL Total Protein (6.3-8.2) g/dL Albumin (3.5-5.0) g/dL
[2020-11-09 17:13] LABS: Protein, Total 5.6 g/dL (6.2-8.2)
[2020-11-09 17:14] LABS: Glucose,Whole Blood 100 mg/dL (75-99)
[2020-11-09] MEDS: ACETAMINOPHEN TAB 325 MG TAB PO PRN ×2 (17:20→22:20)
[2020-11-09] MEDS: CYCLOBENZAPRINE 10 MG TAB PO SCH (21:13)
[2020-11-10] MEDS: SEVELAMER 800 MG TAB PO SCH ×4 (00:14→17:26)
[2020-11-10] MEDS: ALPRAZolam 0.25 MG TAB PO PRN (00:14)
[2020-11-10] MEDS: NYSTATIN 100,000 UNIT/GM POWD 15 GM TOPICAL SCH ×4 (00:15→21:46)
[2020-11-10 00:26] LABS: Glucose,Whole Blood 125 mg/dL (75-99)
[2020-11-10] MEDS: INSULIN ASPART (NovoLOG) 100 UNIT/ML VIAL SQ SCH ×10 (01:13→21:45)
[2020-11-10 04:46] LABS: Calcium 10.3 mg/dL (8.4-10.2); Potassium 4.2 mmol/L (3.5-5.1)
[2020-11-10 06:40] LABS: Glucose,Whole Blood 105 mg/dL (75-99)
[2020-11-10] MEDS: ALBUTEROL HFA INHALER INHALATION SCH (07:28)
[2020-11-10] MEDS: PANTOPRAZOLE 40 MG/10 ML VIAL IVP SCH (08:28)
[2020-11-10] MEDS: ASCORBIC ACID 500 MG TAB PO SCH ×2 (08:28→21:43)
[2020-11-10] MEDS: HYDROcodone/APAP 7.5-325MG 1 EACH TAB PO PRN ×2 (08:29→22:07)
[2020-11-10] MEDS: METOPROLOL TARTRATE 50 MG TAB PO SCH ×2 (08:29→21:43)
[2020-11-10] MEDS: ESCITALOPRAM 10 MG TAB PO SCH (08:30)
[2020-11-10] MEDS: ENOXAPARIN 30 MG/0.3 ML SYRINGE SQ SCH (08:30)
[2020-11-10] MEDS: DILTIAZEM ORAL 60 MG TAB PO SCH ×3 (08:30→21:44)
[2020-11-10] MEDS: diphenhydrAMINE 50 MG/ML 1 ML VIAL IVP PRN ×2 (08:44→21:44)
[2020-11-10] MEDS: HYDROPHILIC CREAM 180 GM TUBE TOPICAL SCH (08:56)
[2020-11-10 10:46] VITALS: BMI 43.7
[2020-11-10 10:48] LABS: Angiotensin-1 Converting Enz. 65 U/L (8-52)
[2020-11-10 11:12] LABS: Glucose,Whole Blood 114 mg/dL (75-99)
--- NOTE | 2020-11-10 11:19 | P.PN ---
Subjective Patient is seen in follow-up for acute kidney injury. Oliguric. Status post tracheostomy and PEG tube placement this admission. Receiving tube feeding. Off vent. No changes overnight. Awaiting placement. Tolerating dialysis well. Vital signs: Stable. General: The patient appeared well nourished and normally developed. HEENT: Tracheostomy noted. LUNGS: Breath sounds decreased. HEART: Regular rate and rhythm. Abdomen: Soft, no distention. EXTREMITITES: Trace edema. Objective - Vital Signs Vital signs: Vital Signs Temp 97.6 F 11/10/20 08:00 Pulse 88 11/10/20 10:00 Resp 17 11/10/20 10:00 BP 164/112 11/10/20 10:00 Pulse Ox 93 L 11/10/20 10:00 Intake & Output 11/09/20 11/10/20 11/10/20 18:59 06:59 18:59 Intake Total 220 Output Total 2200 0 0 Balance -2200 220 0 Weight 98.3 kg 98.3 kg Intake: Oral 100 Other 120 Output: Urine 0 0 0 Stool 2200 Other: Voiding Method External Catheter Bedpan # Voids 0 ABP, PAP, CO, CI - Last Documented Arterial Blood Pressure 136/76 - Labs CBC & Chem 7: 11/07/20 03:12 11/10/20 03:55 Labs: Abnormal Lab Results - Last 24 Hours (Table) 11/09/20 11/09/20 11/09/20 Range/Units 05:24 05:24 05:24 Sodium (137-145) mmol/L BUN (7-17) mg/dL Creatinine (0.52-1.04) mg/dL Glucose (74-99) mg/dL POC Glucose (mg/dL) (75-99) mg/dL Calcium (8.4-10.2) mg/dL Total Protein (PEP) 5.6 L (6.2-8.2) g/dL Angiotensin Convert Enz 65 H (8-52) U/L Vitamin D 25-Hydroxy 27.1 L (30.0-100.0) ng/mL PTH Intact (14.0-72.0) pg/mL 11/09/20 11/09/20 11/09/20 Range/Units 11:07 11:47 17:12 Sodium (137-145) mmol/L BUN (7-17) mg/dL Creatinine (0.52-1.04) mg/dL Glucose (74-99) mg/dL POC Glucose (mg/dL) 102 H 100 H (75-99) mg/dL Calcium (8.4-10.2) mg/dL Total Protein (PEP) (6.2-8.2) g/dL Angiotensin Convert Enz (8-52) U/L Vitamin D 25-Hydroxy (30.0-100.0) ng/mL PTH Intact 7.5 L (14.0-72.0) pg/mL 11/10/20 11/10/20 11/10/20 Range/Units 00:25 03:55 06:38 Sodium 134 L (137-145) mmol/L BUN 30 H (7-17) mg/dL Creatinine 2.94 H (0.52-1.04) mg/dL Glucose 101 H (74-99) mg/dL POC Glucose (mg/dL) 125 H 105 H (75-99) mg/dL Calcium 10.3 H (8.4-10.2) mg/dL Total Protein (PEP) (6.2-8.2) g/dL Angiotensin Convert Enz (8-52) U/L Vitamin D 25-Hydroxy (30.0-100.0) ng/mL PTH Intact (14.0-72.0) pg/mL 11/10/20 Range/Units 11:10 Sodium (137-145) mmol/L BUN (7-17) mg/dL Creatinine (0.52-1.04) mg/dL Glucose (74-99) mg/dL POC Glucose (mg/dL) 114 H (75-99) mg/dL Calcium (8.4-10.2) mg/dL Total Protein (PEP) (6.2-8.2) g/dL Angiotensin Convert Enz (8-52) U/L Vitamin D 25-Hydroxy (30.0-100.0) ng/mL PTH Intact (14.0-72.0) pg/mL Assessment and Plan Plan: Assessment: 1. Acute kidney injury secondary to ATN secondary to COVID-19 and DKA. Baseline creatinine is near 1. Started on hemodialysis on September 14. Has p-cath. Oliguric. No hydronephrosis noted on kidney ultrasound. 2. DKA s/p insulin drip and IV fluids. 3. Acute hypoxic respiratory failure secondary to COVID-19 pneumonia. Status post tracheostomy this admission. 4. Metabolic acidosis secondary to acute kidney injury and DKA s/p bicarb drip. Improved postdialysis. 5. Hyponatremia, hypervolemic. Stable. 6. Hyperphosphatemia secondary to acute kidney injury. Maintained on Renvela. 7. Anemia of chronic illness and kidney disease. Maintained on Aranesp. Iron deficiency noted - s/p iv iron. Status post blood transfusion this admission. 8. Fluid overload. Improved with ultrafiltration. 9. Hypercalcemia. Patient was on daily vitamin D supplementation which has been discontinued. PTH is appropriately suppressed. Vitamin D level 27.1. RUY level elevated - pulm following. Plan: Hemodialysis tomorrow. Maintain tube feeds. Avoid nephrotoxins. Continue to monitor renal function and urine output. Monitor for renal recovery. Await placement to ECF. Follow-up pending workup for hypercalcemia.
[2020-11-10] MEDS: ONDANSETRON 4 MG/2 ML VIAL IVP PRN (11:34)
[2020-11-10 11:49] LABS: Albumin 2.78 g/dL (3.80-4.90); Gamma Globulin 0.55 g/dL (0.70-1.50)
--- NOTE | 2020-11-10 12:11 | P.PN ---
Subjective Progress Note Date: 11/10/20 Principal diagnosis: Acute hypoxemic respiratory failure secondary COVID-19 pneumonia, DKA The patient is seen today 11/09/2020 in follow-up in the intensive care unit. She has been here for 60 days. She is currently awake and alert in no acute distress. She is oriented 3. She is currently maintaining good O2 saturations in the 90s on 35% trach collar. She remains afebrile. Hemodynamically stable. Plan is for hemodialysis tomorrow. She is status post 3 units of packed red blood cells this admission. Her current hemoglobin is 8.0. Sodium 138. Potassium 3.8. Creatinine 2.26. Glucose 111. AST 28. ALT 26. Albumin 3.0. Yesterday the Castillo lift was utilized and she had sat up in a chair at the bedside for [address] See placed a fenestrated cannula within the tracheostomy to allow her to speak today. She remains on bronchodilators. Lovenox for DVT prophylaxis. The patient is seen today 11/10/2020 in follow-up in the intensive care unit. She is currently sitting up in bed. Awake and alert in no acute distress. She is she is communicating by putting her finger over tracheostomy. She is doing well. No worsening shortness of breath, cough or congestion. She is maintained on trach collar 60% FiO2 currently. She is afebrile. Hemodynamically stable. Currently receiving hemodialysis. Sodium 134. Potassium 4.2. Creatinine 2.94. Currently waiting for subacute rehabilitation placement. She is tolerating a full liquid diet but only taken approximately 25%. Nutrition and is evaluating for possible PEG tube feeding supplements. Objective - Vital Signs Vital signs: Vital Signs Temp 97.6 F 11/10/20 08:00 Pulse 88 11/10/20 10:00 Resp 17 11/10/20 10:00 BP 164/112 11/10/20 10:00 Pulse Ox 93 L 11/10/20 10:00 Intake & Output 11/09/20 11/10/20 11/10/20 18:59 06:59 18:59 Intake Total 220 Output Total 2200 0 0 Balance -2200 220 0 Weight 98.3 kg 98.3 kg Intake: Oral 100 Other 120 Output: Urine 0 0 0 Stool 2200 Other: Voiding Method External Catheter Bedpan # Voids 0 ABP, PAP, CO, CI - Last Documented Arterial Blood Pressure 136/76 - Exam GENERAL EXAM: Awake, very pleasant 35-year-old female patient, looking around the room, responding and communicating by mouthing words oriented 3, currently on 60% trach collar HEAD: Normocephalic/atraumatic. EYES: Normal reaction of pupils, equal size. Conjunctiva pink, sclera white. NOSE: Clear with pink turbinates. THROAT: No erythema or exudates. NECK: No masses, no JVD, no thyroid enlargement, no adenopathy. Midline tracheostomy in place, patient currently has #6 Shiley uncuffed fenestrated inner cannula tracheostomy tube in place CHEST: No chest wall deformity. Symmetrical expansion. Patient has right upper chest permacath hemodialysis catheter in place LUNGS: Equal air entry with bilateral crackles CVS: Regular rate and rhythm, normal S1 and S2, no gallops, no murmurs, no rubs ABDOMEN: Soft, nontender. No hepatosplenomegaly, normal bowel sounds, no guarding or rigidity. Peg tube in place, and is receiving tube feedings in the form of Nepro at 34 ML per hour EXTREMITIES: No clubbing, no edema edema involving upper and lower extremities noted no cyanosis, 2+ pulses and upper and lower extremities. MUSCULOSKELETAL: Muscle strength and tone normal. SPINE: No scoliosis or deformity SKIN: No rashes CENTRAL NERVOUS SYSTEM: awake and alert, oriented 3, communicates by pounding words, responding appropriately moving all 4 extremities - Labs CBC & Chem 7: 11/07/20 03:12 11/10/20 03:55 Labs: Abnormal Lab Results - Last 24 Hours (Table) 11/09/20 11/09/20 11/09/20 Range/Units 05:24 05:24 05:24 Sodium (137-145) mmol/L BUN (7-17) mg/dL Creatinine (0.52-1.04) mg/dL Glucose (74-99) mg/dL POC Glucose (mg/dL) (75-99) mg/dL Calcium (8.4-10.2) mg/dL Total Protein (PEP) 5.6 L (6.2-8.2) g/dL Angiotensin Convert Enz 65 H (8-52) U/L Vitamin D 25-Hydroxy 27.1 L (30.0-100.0) ng/mL PTH Intact (14.0-72.0) pg/mL 11/09/20 11/09/20 11/09/20 Range/Units 11:07 11:47 17:12 Sodium (137-145) mmol/L BUN (7-17) mg/dL Creatinine (0.52-1.04) mg/dL Glucose (74-99) mg/dL POC Glucose (mg/dL) 102 H 100 H (75-99) mg/dL Calcium (8.4-10.2) mg/dL Total Protein (PEP) (6.2-8.2) g/dL Angiotensin Convert Enz (8-52) U/L Vitamin D 25-Hydroxy (30.0-100.0) ng/mL PTH Intact 7.5 L (14.0-72.0) pg/mL 11/10/20 11/10/20 11/10/20 Range/Units 00:25 03:55 06:38 Sodium 134 L (137-145) mmol/L BUN 30 H (7-17) mg/dL Creatinine 2.94 H (0.52-1.04) mg/dL Glucose 101 H (74-99) mg/dL POC Glucose (mg/dL) 125 H 105 H (75-99) mg/dL Calcium 10.3 H (8.4-10.2) mg/dL Total Protein (PEP) (6.2-8.2) g/dL Angiotensin Convert Enz (8-52) U/L Vitamin D 25-Hydroxy (30.0-100.0) ng/mL PTH Intact (14.0-72.0) pg/mL 11/10/20 Range/Units 11:10 Sodium (137-145) mmol/L BUN (7-17) mg/dL Creatinine (0.52-1.04) mg/dL Glucose (74-99) mg/dL POC Glucose (mg/dL) 114 H (75-99) mg/dL Calcium (8.4-10.2) mg/dL Total Protein (PEP) (6.2-8.2) g/dL Angiotensin Convert Enz (8-52) U/L Vitamin D 25-Hydroxy (30.0-100.0) ng/mL PTH Intact (14.0-72.0) pg/mL Assessment and Plan Assessment: 1 Acute hypoxic respiratory failure secondary to COVID-19 pneumonia/ARDS, transferred to the intensive care unit on 09/11/2020 and intubated and placed on mechanical ventilator on 09/11/2020. Patient received 1 dose of Remdesivir on 09/11/2020, however based on her quick progression of her hypoxic respiratory failure she received Tocilizumab 800 mg on 09/11/2020. Tracheostomy and PEG tube placed on 09/18/2020. Patient was successfully weaned from the ventilator support, she status post tracheostomy and PEG tube insertion, currently on 11/10/2020 patient is to 60% trach collar 2 Acinetobacter baumannii infection of the trach site. Completed a course of cefepime 3 Acute kidney injury related to ATN, nephrology has been consulted, ultrasound of the kidneys showed no evidence of hydronephrosis. Patient was initiated on hemodialysis on 09/14/2020. Permacath placed 09/20/2020. Patient is undergoing daily dialysis. 4 diabetes mellitus, insulin-dependent and the patient is currently on insulin sliding scale coverage with NovoLog 5 obesity with a BMI is down to 50 6 hypotension, recovered and the patient is currently on no pressors 7 Corneal injury, punctate keratitis, left eye, improved 8 Anemia of chronic disease, requiring transfusions of packed red blood cells, hemoglobin is 8.0 9 Generalized anxiety disorder. 10 hypertriglyceridemia, currently off propofol and will utilizing a combination of Precedex and fentanyl. 11 leukocytosis, resolved 13 encephalopathy/delirium , improved and resolved 14 History of hypertension Plan: The patient was seen and evaluated by Dr. See Maintaining good O2 saturations in the high 80s low 90s Continue 60% trach collar She is tolerating a soft diet Awaiting ECF placement with hemodialysis We'll continue to follow I, the cosigning physician, performed a history & physical examination of the patient. Lungs sounds are clear but diminished. Maintaining good O2 saturations in the 90s on 60% trach collar. I discussed the assessment and plan of care with my nurse practitioner, Kyara Concepcion. I attest to the above note as dictated by her.
--- NOTE | 2020-11-10 13:31 | P.PN ---
Subjective Progress Note Date: 11/10/20 CHIEF COMPLAINT: COVID-19 pneumonia HISTORY OF PRESENT ILLNESS: Patient is in the ICU for COVID-19 pneumonia and respiratory failure. She is status post tracheostomy and PEG tube placement with Dr. Zhang. Patient is tolerating a full liquid diet. Her diet has been advanced to regular. She remains off the tube feedings. Social work is working on discharge planning. Afebrile. PHYSICAL EXAM: VITAL SIGNS: Reviewed. GENERAL: Well-developed in no acute distress. HEENT: No sclera icterus. Extraocular movements grossly intact. Moist buccal mucosa. Head is atraumatic, normocephalic. Patient has wound located and skin breakdown at tracheostomy site. ABDOMEN: Soft. Nondistended. Nontender. PEG tube site clean dry and intact NEUROLOGIC: Awake and opens eyes ASSESSMENT: 1. Acute hypoxic respiratory failure with prolonged mechanical ventilation due to COVID-19 pneumonia status post tracheostomy placement 2. Severe protein calorie malnutrition status post PEG tube placement 3. Pressure wound at tracheostomy site PLAN: -Continue supportive care -Continue ICU management -Continue wound care at tracheostomy site -Patient is stable for discharge from surgical standpoint Physician [employer] note has been reviewed by physician. Signing provider agrees with the documented findings, assessment, and plan of care. Objective - Vital Signs Vital signs: Vital Signs Temp 98.6 F 11/10/20 12:38 Pulse 111 H 11/10/20 13:00 Resp 20 11/10/20 13:00 BP 135/78 11/10/20 13:00 Pulse Ox 88 L 11/10/20 13:00 Intake & Output 11/09/20 11/10/20 11/10/20 18:59 06:59 18:59 Intake Total 220 300 Output Total 2200 0 2300 Balance -2200 220 -2000 Weight 98.3 kg 98.3 kg Intake: Oral 100 Hemodialysis 300 Other 120 Output: Urine 0 0 0 Stool 2200 Hemodialysis 2300 Other: Voiding Method External Catheter Bedpan # Voids 0 ABP, PAP, CO, CI - Last Documented Arterial Blood Pressure 136/76 - Labs CBC & Chem 7: 11/07/20 03:12 11/10/20 03:55 Labs: Abnormal Lab Results - Last 24 Hours (Table) 11/09/20 11/09/20 11/09/20 Range/Units 05:24 05:24 05:24 Sodium (137-145) mmol/L BUN (7-17) mg/dL Creatinine (0.52-1.04) mg/dL Glucose (74-99) mg/dL POC Glucose (mg/dL) (75-99) mg/dL Calcium (8.4-10.2) mg/dL Total Protein (PEP) 5.6 L (6.2-8.2) g/dL Albumin (PEP) 2.78 L (3.80-4.90) g/dL Pvhyw-2-Aqlwrotrf 0.57 H (0.10-0.40) g/dL Mhhcb-9-Fbnewambm 1.01 H (0.60-1.00) g/dL Gamma Globulins 0.55 L (0.70-1.50) g/dL Angiotensin Convert Enz 65 H (8-52) U/L Vitamin D 25-Hydroxy 27.1 L (30.0-100.0) ng/mL PTH Intact (14.0-72.0) pg/mL 11/09/20 11/09/20 11/10/20 Range/Units 11:07 17:12 00:25 Sodium (137-145) mmol/L BUN (7-17) mg/dL Creatinine (0.52-1.04) mg/dL Glucose (74-99) mg/dL POC Glucose (mg/dL) 100 H 125 H (75-99) mg/dL Calcium (8.4-10.2) mg/dL Total Protein (PEP) (6.2-8.2) g/dL Albumin (PEP) (3.80-4.90) g/dL Crgcm-1-Srgofhotz (0.10-0.40) g/dL Urcnh-1-Jdfaqyyzz (0.60-1.00) g/dL Gamma Globulins (0.70-1.50) g/dL Angiotensin Convert Enz (8-52) U/L Vitamin D 25-Hydroxy (30.0-100.0) ng/mL PTH Intact 7.5 L (14.0-72.0) pg/mL 11/10/20 11/10/20 11/10/20 Range/Units 03:55 06:38 11:10 Sodium 134 L (137-145) mmol/L BUN 30 H (7-17) mg/dL Creatinine 2.94 H (0.52-1.04) mg/dL Glucose 101 H (74-99) mg/dL POC Glucose (mg/dL) 105 H 114 H (75-99) mg/dL Calcium 10.3 H (8.4-10.2) mg/dL Total Protein (PEP) (6.2-8.2) g/dL Albumin (PEP) (3.80-4.90) g/dL Qbmvm-3-Wjebwuslr (0.10-0.40) g/dL Udxyz-9-Lyteeecun (0.60-1.00) g/dL Gamma Globulins (0.70-1.50) g/dL Angiotensin Convert Enz (8-52) U/L Vitamin D 25-Hydroxy (30.0-100.0) ng/mL PTH Intact (14.0-72.0) pg/mL
--- NOTE | 2020-11-10 13:57 | P.CONS ---
History of Present Illness - Chief Complaint Medical debility - History of Present Illness I had the opportunity to see patient for inpatient rehab consultation with regard to medical debility. She was admitted to [facility] September 10 with fever 101.5, hypoxia and chest x-rays bilateral infiltrates and Covid positive. Seen by Dr. Mcfarland for pulmonary management. Also seen by Dr. Zhang for trach tube and PEG tube. Seen by Dr. Ortiz for acute kidney injury now requiring dialysis. Patient also has complication of decubitus on coccyx as well as DKA. Chest x-rays followed for bilateral infiltrates which are improving. His started therapy. PT reports two-person maximal assistance for bed mobility, standing and transfers and for gait 2 feet. OT reports maximal assistance for upper dressing and two-person maximal assistance for bathing and functional mobility/transfers and two-person total assistance for toileting. Previous functional history as elicited from patient: 35-year-old right-handed female who is single lives in first-floor apartment with daughter. Patient works part-time in a [employer]. Otherwise describes independent with cooking, laundry, driving, standing shower and gait without device. PCP Dr. Arroyo. Denies tobacco or alcohol. Review of Systems Review of systems: Skin: Coccyx decubitus. ENT: Denies sneezes or discharge. Eyes: Denies discharge or photophobia. Cardiac: Denies chest pain or palpitation. Pulmonary: shortness of breath. Breast: Denies discharge or lumps. Gastrointestinal: Denies nausea, emesis, constipation, diarrhea. Genitourinary: Denies discharge or frequency. Musculoskeletal: Denies muscle or bone aches. Neurologic: Generalized weakness. Endocrine: Denies shakes or sweats. Oncology: Denies cancers. Dermatologic: Denies rash, itching, pruritus. ALLERGY/immunology: Denies sneezes, rashes. Past Medical History Past Medical History: Diabetes Mellitus History of Any Multi-Drug Resistant Organisms: None Reported Past Surgical History: Section, Tubal Ligation Past Psychological History: No Psychological Hx Reported Smoking Status: Never smoker Past Alcohol Use History: Occasional Past Drug Use History: None Reported Medications and Allergies Home Medications Medication Instructions Recorded Confirmed Type ALPRAZolam [Xanax] 0.25 mg PO BID PRN #6 tab 11/07/20 Rx Acetaminophen Tab [Tylenol] 650 mg PO Q6HR PRN tab 11/07/20 Rx Albuterol Inhaler [Ventolin Hfa 2 puff INHALATION RT-QID puff 11/07/20 Rx Inhaler] Artificial Tears-Hypromellose 2 drops BOTH EYES QID PRN bottle 11/07/20 Rx [Artificial Tear Drops] Chlorhexidine Gluconate [Peridex] 15 ml MUCOUS MEM BID ml 11/07/20 Rx Cyclobenzaprine [Flexeril] 10 mg PO HS tab 11/07/20 Rx Darbepoetin Emerson [Aranesp] 40 mcg SQ Q7D syringe 11/07/20 Rx Diltiazem Oral [Cardizem*] 60 mg PO TID tab 11/07/20 Rx Enoxaparin [Lovenox] 30 mg SQ DAILY syringe 11/07/20 Rx Escitalopram [Lexapro] 10 mg PO DAILY tab 11/07/20 Rx HYDROcodone/APAP 7.5-325MG [[place] 1 each PO Q6H PRN #18 tab 11/07/20 Rx 7.5-325] Hydrophilic Cream [Triad Cream] 1 applic TOPICAL DAILY applic 11/07/20 Rx INSULIN ASPART (NovoLOG) [NovoLOG 0 unit SQ Q6H vial 11/07/20 Rx (formulary)] INSULIN ASPART (NovoLOG) [NovoLOG 7 unit SQ Q6HR vial 11/07/20 Rx (formulary)] Insulin Detemir (Levemir) [Levemir] 35 unit SQ BID@0700,2100 syr 11/07/20 Rx Metoprolol Tartrate [Lopressor] 50 mg PO BID tab 11/07/20 Rx Nystatin 100,000 Unit/gm Powd 1 applic TOPICAL TID applic 11/07/20 Rx [Mycostatin Powder] Nystatin 100,000 Unit/ml Susp 500,000 unit PO Q6HR ml 11/07/20 Rx [Mycostatin Oral Susp] Sevelamer [Renvela] 1,600 mg PO Q6HR tab 11/07/20 Rx Allergies Allergy/AdvReac Type Severity Reaction Status Date / Time No Known Allergies Allergy Verified 09/10/20 15:23 Physical Exam Vitals: Vital Signs Temp Pulse Pulse Resp BP BP Pulse Ox 11/10/20 13:00 111 H 20 135/78 88 L 11/10/20 12:38 98.6 F 95 154/82 11/10/20 12:00 98 17 154/82 89 L 11/10/20 11:00 92 15 165/112 97 11/10/20 10:00 88 17 164/112 93 L 11/10/20 09:00 98 29 H 153/106 98 11/10/20 08:00 97.6 F 108 H 22 174/109 96 11/10/20 07:00 99 F 110 H 18 165/107 97 11/10/20 06:00 99.2 F 110 H 19 152/97 100 11/10/20 05:00 108 H 17 151/97 92 L 11/10/20 04:00 98.9 F 107 H 22 145/90 97 11/10/20 03:00 105 H 17 97 11/10/20 02:00 101 H 17 93 L 11/10/20 01:00 97 17 143/105 95 11/10/20 00:00 98.2 F 98 23 97 11/09/20 23:00 100 26 H 89 L 11/09/20 22:11 93 24 97 11/09/20 22:00 96 21 167/123 94 L 11/09/20 21:00 126 H 23 163/108 85 L 11/09/20 20:00 98.7 F 120 H 18 149/90 87 L 11/09/20 19:00 112 H 20 148/103 90 L 11/09/20 18:00 112 H 24 164/98 93 L 11/09/20 17:00 110 H 20 142/88 92 L 11/09/20 16:00 98.0 F 98 17 155/102 91 L 11/09/20 15:51 20 11/09/20 15:00 105 H 20 169/109 96 11/09/20 14:00 102 H 21 150/108 98 Intake and Output 11/09/20 11/10/20 11/10/20 22:59 06:59 14:59 Intake Total 130 90 300 Output Total 1100 0 2300 Balance -970 90 -2000 Intake: Oral 50 50 Hemodialysis 300 Other 80 40 Output: Urine 0 0 0 Stool 1100 Hemodialysis 2300 Other: Voiding Method Bedpan Bedpan # Voids 0 Weight 98.3 kg 98.3 kg Skin: Good color, texture, turgor. General: Obese build and comfortable appearance. Head: Normocephalic, atraumatic. Eyes: Symmetric. Pupils equal round. Ears: Symmetric. Hearing within normal limits. Mouth: Clear. Neck: Supple. Trach. Cardiac: Regular rate and rhythm. Lungs: Clear anteriorly and posteriorly. Abdomen: Soft active nontender. Overweight. Extremities: Normal tone. Neurological: Mental status: Alert, cooperative, pleasant. Cranial nerves: Symmetric facial tone and trapezius. Motor: Active movement all 4 limbs but arms are at best antigravity in legs are definitely less than antigravity. Sensation: Intact throughout. DTRs: Symmetric and equal throughout. Mobility: Requires maximal physical assist for any bed mobility. Results CBC & Chem 7: 11/07/20 03:12 11/10/20 03:55 Labs: Abnormal Lab Results - Last 24 Hours (Table) 11/09/20 11/09/20 11/09/20 Range/Units 05:24 05:24 05:24 Sodium (137-145) mmol/L BUN (7-17) mg/dL Creatinine (0.52-1.04) mg/dL Glucose (74-99) mg/dL POC Glucose (mg/dL) (75-99) mg/dL Calcium (8.4-10.2) mg/dL Total Protein (PEP) 5.6 L (6.2-8.2) g/dL Albumin (PEP) 2.78 L (3.80-4.90) g/dL Hqwem-4-Wcbemjbuj 0.57 H (0.10-0.40) g/dL Wbnee-3-Yxmqtddhw 1.01 H (0.60-1.00) g/dL Gamma Globulins 0.55 L (0.70-1.50) g/dL Angiotensin Convert Enz 65 H (8-52) U/L Vitamin D 25-Hydroxy 27.1 L (30.0-100.0) ng/mL PTH Intact (14.0-72.0) pg/mL 11/09/20 11/09/20 11/10/20 Range/Units 11:07 17:12 00:25 Sodium (137-145) mmol/L BUN (7-17) mg/dL Creatinine (0.52-1.04) mg/dL Glucose (74-99) mg/dL POC Glucose (mg/dL) 100 H 125 H (75-99) mg/dL Calcium (8.4-10.2) mg/dL Total Protein (PEP) (6.2-8.2) g/dL Albumin (PEP) (3.80-4.90) g/dL Ldbfr-4-Mtabmgaof (0.10-0.40) g/dL Oicbm-7-Jkzffofay (0.60-1.00) g/dL Gamma Globulins (0.70-1.50) g/dL Angiotensin Convert Enz (8-52) U/L Vitamin D 25-Hydroxy (30.0-100.0) ng/mL PTH Intact 7.5 L (14.0-72.0) pg/mL 11/10/20 11/10/20 11/10/20 Range/Units 03:55 06:38 11:10 Sodium 134 L (137-145) mmol/L BUN 30 H (7-17) mg/dL Creatinine 2.94 H (0.52-1.04) mg/dL Glucose 101 H (74-99) mg/dL POC Glucose (mg/dL) 105 H 114 H (75-99) mg/dL Calcium 10.3 H (8.4-10.2) mg/dL Total Protein (PEP) (6.2-8.2) g/dL Albumin (PEP) (3.80-4.90) g/dL Kdizs-9-Yagekuvib (0.10-0.40) g/dL Qiuyy-9-Zadooqchc (0.60-1.00) g/dL Gamma Globulins (0.70-1.50) g/dL Angiotensin Convert Enz (8-52) U/L Vitamin D 25-Hydroxy (30.0-100.0) ng/mL PTH Intact (14.0-72.0) pg/mL Assessment and Plan (1) Acute renal failure Current Visit: Yes Status: Acute Code(s): N17.9 - ACUTE KIDNEY FAILURE, UNSPECIFIED SNOMED Code(s): 03929877 (2) Anemia Current Visit: Yes Status: Acute Code(s): D64.9 - ANEMIA, UNSPECIFIED SNOMED Code(s): 346597299 (3) BMI 45.0-49.9, adult Current Visit: Yes Status: Acute Code(s): Z68.42 - BODY MASS INDEX [BMI] 45.0-49.9, ADULT SNOMED Code(s): 261611838 (4) DKA (diabetic ketoacidoses) Current Visit: Yes Status: Acute Code(s): E11.10 - TYPE 2 DIABETES MELLITUS WITH KETOACIDOSIS WITHOUT COMA SNOMED Code(s): 797994100 (5) Diabetes with skin ulcer Current Visit: Yes Status: Acute Code(s): E11.622 - TYPE 2 DIABETES MELLITUS WITH OTHER SKIN ULCER; L98.499 - NON-PRESSURE CHRONIC ULCER OF SKIN OF SITES W UNSP SEVERITY SNOMED Code(s): 75184572 Plan: Comments and plan: At this time therapies are ongoing. Patient is participating but still with limited endurance. Currently could not participated in full inpatient rehab program, 3 hours per day. We'll continue to follow with yourself though.
[2020-11-10 14:20] LABS: Vitamin D, 1, 25-Dihydroxy 12 pg/mL (20 - 79)
--- NOTE | 2020-11-10 15:41 | P.PN ---
Subjective Progress Note Date: 11/10/20 HISTORY OF PRESENT ILLNESS 35-year-old female patient of Dr. Arroyo with past medical history of type 2 diabetes comes in with acute shortness of breath associated with high light s ugars. Patient on admission was found to have a fever of 101.5 pulse rate 125 respiratory rate 20. Blood pressure 132/106. On chest x-ray obtained in the ER suggestive of bilateral infiltrates concerning for call with pneumonia. COVID PCR was positive. On admissions patient had an ABG with a pH of 7.14 pCO2 of 20, pO2 of 59, bicarb of 7. Patient's blood sugar on admission was 424 on assessment today patient's blood work patient had a sodium 135 potassium 5.4 chloride 123 bicarb less than 5 and creatinine 0.73. D-dimer was elevated on admission patient 9 28 patient given 1 L of IV fluids followed by normal saline running at 200 mL/h. Patient was positive for acetone on admission. She will anion gap closed and was switched to D5NS. Insulin drip was continued during the night and was switched to patient's home medication this morning. One dose of remdesiver was ordered. Apparently around noon, A- team was called on the patient secondary to hypoxia patient's oxygen saturation dropped to the 70s and 80s on 100% nonrebreather. Patient was switched to BiPAP on 18/12 and is doing better o FiO2 of 80%. ABG was obtained and ph was 7. 14 pCO2 of 28 bicarb of 7 pO2 of 17. Patient noted to have uncompensated metabolic acidosis with compensated respiratory alkalosis. Stat dose of 1 amp bicarb was given and followed by sodium bicarbonate drip. Insulin drip restarted. Patient's initiated on dexamethasone 6 mg IV twice a day. Potassium phosphate ordered as phosphorus is low. Patient's repeat blood gases suggest a pH of 7.25, CO2 32 pO2 of 72 bicarb 14. I will not normal saline at 100 mL/h as patient's anion gap has increased. Patient given 1 dose of 2 mg of morphine with improvement in respiratory rate. One dose of Ativan 0.5 mg was given. Xanax 0.25 twice a day along with Ativan 0.5 IV every 6 hours ordered for the patient. Vitals were evaluated patient pulse 129 [id number]. She was moved to the ICU. Precedex drip was initiated. Lopressor was initiated at 25 twice a day. Metoprolol tartrate 5 mg IV every 6 hours. Systolic blood pressure more than 160. Started chest x-ray was obtained and suggest stable bilateral consolidation suggestive of COVID-19 pneumonia. 09/12 patient is seen in the ICU is currently mechanically ventilated and sedated on vent settings of respiratory rate 36, tidal volume 375 FiO2 80% PEEP of 18.. Vital signs reviewed patient had a temp of 100.4 pulse 150 respiratory rate 36 oxygen saturation 95% on 80% on fio2 .'s labs are reviewed which patient had a d-dimer 1.84 that is increased to 14.3. Arterial Blood gas suggest ph 7.35, CO2 40, po2 62, . Her BMP suggest a sodium 135 potassium 3.7 chloride 112 bicarb 21 creatinine 1.57 for calcitonin is 3.5 CRP is increased from 8.78.2 LDH is increased to 2614. Patient remains on Pneumovax, propofol drip. Lovenox increased to 50 subcu twice a day. Patient received 2 L of IV fluids. Continue IV fluids at 100 mL/h. Bicarb drip discontinued patient initiated on Zosyn 3.375 every 8 hours. Continue insulin drip at 4 units per hour. Patient is currently in prone positioning 09/13: Patient evaluated in the ICU remains on Ventilation continues to be sedated, in prone position. Vent settings are respiratory rate 36, tidal vital 375, FiO2 70% PEEP of 18. ABG shows pO2 of 82, PCO2 of 39, pH is 7.19. Latest labs show WBC 11.1, hemoglobin 13.2, d-dimer still pending, but yesterday was up to 14.3. Creatinine up to 3.4, BUN 24 sodium 137, potassium 4.0. Patient's urine output has been low, nephrology on consult. Bicarb drip increased to 100 miles an hour, receiving another liter of normal saline, she did have a ultrasound that showed unremarkable bilateral kidneys. Repeat chest x-ray showed bilateral lung infiltrates that are stable. Anion gap has closed, will start Lantus 10 units at at bedtime Novolog every 6 hours. 09/14: Patient is seen in the ICU, still currently mechanically ventilated and sedated. She continues in the prone position. Her oxygen quickly drops if she is not in prone. Patient's kidney function has worsened. Laboratory values show creatinine of 4.87, BUN 33, LDH 2191, C-reactive protein 2.7. ABG shows pH 7.32, pO2 of 60, pCO2 43. Patient is making almost no urine overnight. Nephrology is following patient continues on cefepime for urinary tract infection, culture is still pending. Vascular has been consulted for placement of temporary hemodialysis catheter for plans for dialysis. 09/15: Patient evaluated in the ICU, continues to be mechanically ventilated and sedated on assist control ventilation rate of 36, tidal volume 375, FiO2 100% and PEEP of 18. ABG today shows pO2 58, pCO2 of 45, and pH 7.35. She continues on tube feedings. Yesterday patient underwent ultrasound-guided right internal jugular non-tunneled hemodialysis catheter placement. Patient underwent hemodialysis treatment last night and plans have another hemodialysis treatment today. She continues to make almost no urine. She continues on cefepime for antibiotic coverage, and continues on Decadron and Lovenox. 09/16: Patient seen on follow-up remains in the ICU mechanically ventilated and sedated. She continues on assist control rate of 36, tidal volume 375, FiO2 100% and PEEP of 20. PEEP had to be increased due to patient had to be in supine position for dialysis, will go back to prone position once dialysis is complete. ABG shows pH 7.32, pCO2 49, PaO2 61. Laboratory values showed WBC 11.2, hemoglobin 11, sodium 134, creatinine 4.44, BUN 38. Urine culture shows no growth, blood cultures show no growth to date. Repeat chest x-ray shows bilateral pleural effusions, correlate for ARDS, pulmonary edema, diffuse pneumonia, findings are stable from last exam. Patient does not require any pressors, blood pressure 133/57, heart rate 78. 5/16: Patient was evaluated in the ICU today for follow-up. She continues to be intubated and on mechanical ventilation. Current vent settings are tidal volume 375, FiO2 100% and PEEP of 20. ABG shows pH 7.37, pCO2 40, pO2 102. She continues with intermittent prone positioning. Patient continues to have almost no urine output, maintained on dialysis. Patient received dialysis yesterday without complication. Laboratory values revealed WBC 10.3, hemoglobin 10.4, sodium 132, potassium 3.1, BUN 33, creatinine 4.29, LDH 1913, C-reactive protein 1.3. Urine and sputum cultures are negative, blood cultures show no growth to date. Consult placed to dietary to start TPN[ ] 09/18: She remains in the intensive care unit intubated and on mechanical ventilation with tidal volume 375, FiO2 60 and PEEP of 20. Patient is being prone to daily at approximately 16 hours per day. Pulmonary medicine has added in Dr. Zhang to do PEG tube and trach today. Patient is not on vasopressors. Repeat blood work reveals WBC 12.6, hemoglobin 9.8, platelet count 212. Sodium 133, potassium 3.2, chloride 102, CO2 21, BUN 35 and creatinine 4.12. Blood sugar 126. Patient underwent hemodialysis yesterday with removal of 2 L and is scheduled again today with goal of 2-3 L and is scheduled again tomorrow. 09/19: She is scheduled for hemodialysis today and is off fentanyl temporarily. Patient is status post trach and PEG tube yesterday. And she remains on mechanical ventilation. Pulse ox 93-95%. She has been afebrile, heart rate 64, respiratory rate 36, blood pressure 115/50. Fentanyl is off to improve blood pressure for hemodialysis which is scheduled for today. Contacted vascular surgery about permanent hemodialysis catheter. Repeat blood work reveals WBC 14.3, hemoglobin 9.6, platelet count 200. D-dimer 6.48. LDH 1686. C-reactive protein 1.1. BUN 34 creatinine 3.81. Sodium 130, potassium 3.5, chloride 101, CO2 18. Blood sugars running between 101 198. Plan is to wean off Pneumovax today. Patient remains on insulin drip. Repeat chest x-ray reveals bilateral multifocal confluent opacities consistent with COVID-19. Some improved aeratio n periphery of the left lung and worsening opacities throughout the right lung. 09/20: She remains in the intensive care unit on mechanical ventilation. She has been afebrile, heart rate 65, respiratory rate 37, blood pressure 121/70, pulse ox 91-99%. Repeat blood work reveals WBC 14.5, hemoglobin 9.1, platelet count 216. D-dimer 6.13. Sodium 133, potassium 3.1, chloride 102, CO2 18, BUN 35 and creatinine 4.27. Blood sugars running between 128 and 143. LDH 1717. C- reactive protein 1.7. Patient remains on insulin drip which will be transitioned to NovoLog scale every 6 hours. Patient is scheduled for permanent hemodialysis catheter placement today with vascular surgery. Repeat chest x-ray reveals stable diffuse bilateral interstitial and airspace disease. Possible small right effusion. His work is following [facility] Do not anticipate discharge until next week. 09/21: Patient is undergoing hemodialysis. She remains on mechanical ventilation with tidal volume 375, FiO2 down to 45 and PEEP was decreased to 15. Patient is continued on propofol, fentanyl drips. She is on tube feedings at goal. Patient was taken off insulin drip yesterday and on scale only but blood sugars are running in the 200s, Levemir scheduled at bedtime will be added. Other blood work reveals WBC 13.3, hemoglobin 8.7, platelet count 192. Sodium 137, potassium 3.6, chloride 107, CO2 18, BUN 34 and creatinine 4.21. Repeat chest x-ray is stable. 09/22: She remains in the intensive care on mechanical ventilation with tidal volume 375, FiO2 of 50 and PEEP of 10. Pulse ox is running 96%. She is afebrile, heart rate in the 50s, respiratory rate 36, blood pressure 100/64. Repeat blood work reveals WBC 16.5, hemoglobin 8.9, platelet count 213. Sodium 134, potassium 3.7, chloride 103, CO2 21, BUN 34 and creatinine 3.89. Blood sugars running in the 200s to 324. Levemir increased to 16 units at bedtime and continue NovoLog scale every 6 hours. Patient is on tube feedings at goal. She has a Haley catheter in with a scant amount of dark/brown urine. Fecal management system is in place. Repeat chest x-ray reveals diffuse bilateral airspace infiltrates persist unchanged. Patient is scheduled for hemodialysis tomorrow morning on Friday. 09/23: Patient remains on mechanical ventilation with tidal volume 3.75, FiO2 50 and PEEP of 10. tool keeper sinus rhythm. She has no urine output. Fecal management system is in place. She is undergoing dialysis at this time with plan for removal of 2-1/2 L. She has been afebrile, heart rate in the 50s, respiratory rate 36, blood pressure 108/76 and pulse ox 89%. WBC 13.6, hemoglobin 9.1, platelet count 194. Sodium 136, potassium 3.0 and was replaced, chloride 106, CO2 21, BUN 49 creatinine 5.31. Blood sugars are running between 182 and this morning 194. Patient was still in the 200s and 300s. Levemir last evening was increased to 16 units. Patient remains on propofol and fentanyl drips. Lovenox was increased to 60 mg twice daily. 09/24: PEEP was increased today to 20, tidal volume is at 375 and FiO2 of 50%. Patient has been afebrile. She has been started on levo fed. Repeat chest x- ray reveals bilateral multifocal confluent opacities consistent with Covid 19 or ARDS redemonstrated. Nephrology will plan dialysis for tomorrow for 3 L. Patient remains on propofol fentanyl and Nimbex. WBC 12.5, hemoglobin 9.8, platelet count 161. D-dimer 13.3. Sodium 132, potassium 3.4, chloride 102, CO2 20, BUN 48 and creatinine 4.67. Blood sugars extremely elevated to 96-409. LDH 2217. 09/25: Patient remains in the intensive care unit on mechanical ventilation with tidal volume 375, FiO2 50 and PEEP of 20. Patient is afebrile, heart rate 61, respiratory rate 36, blood pressure 102/56, pulse ox 97%. Repeat blood work reveals WBC 9.3, hemoglobin 8.5 and platelet count 171. Sodium 130, potassium 3.7, chloride 100, CO2 20, BUN 61 creatinine 5.65. Blood sugars have been elev ated up to 455. Levemir increased to 20 units twice daily, NovoLog 5 units every 6 hours and continue NovoLog scale. Patient is scheduled for hemodialysis today. Repeat chest x-ray reveals bilateral multifocal and confluent opacities. Decadron and Lovenox dosing change by pulmonary. Patient is off norepinephrine. 09/26: Patient remains in the intensive care unit on mechanical ventilation with tidal volume 375, FiO2 50 and PEEP of 15. She has been afebrile, heart rate 91, blood pressure 114/68, pulse ox 99%. tool keeper sinus rhythm. 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 Sodium 134, potassium 3.6, chloride 102, CO2 22, BUN 41 creatinine 4.21. Patient has improved blood sugars this morning running 150s and 160s. Diabetic medications were adjusted yesterday. Patient is awake and alert and interacting. Yesterday, patient had PICC line inserted by interventional radiology. Repeat chest x-ray reveals diffuse airspace infiltrates in both lung ann appear to progress slightly in the interval. 09/27: Patient remains in intensive care unit on mechanical ventilation with improvement of settings with tidal volume 375, FiO2 decreased to 40 and PEEP decreased to 10. Patient is on hemodialysis every other day and plan to remove 3 L today. Patient is more awake and alert. She is slow to respond but is able to follow simple commands. Blood sugars are running between 84 and 123. Repeat blood work reveals WBC 7.1, hemoglobin 8.1, platelets 152. Sodium 135, potassium 3.6, chloride 103, CO2 21, BUN 53 and creatinine 5.88. Repeat chest x-ray revealed cardiomegaly and pulmonary edema. Patient is on tube feedings:. Patient is not require vasopressors and is off sedation. Fecal management system remains in place for brown liquid stool. C. difficile was negative. 09/28: Patient remains on mechanical ventilation with tidal volume 375, FiO2 increased to 80 and PEEP increased to 18. Patient had a rough night was very anxious, no pain. Xanax 0.25 mg 3 times daily was added. There is concern for pulmonary embolism for which patient was started on heparin drip, she is unable to undergo CAT scan. Venous Doppler bilateral lower extremities was nondiagnostic due to extensive edema in obese patient but minimal imaging of the popliteal veins does show flow. Repeat echocardiogram has been ordered. Cefepime has also been ordered at 1 g IV piggyback every 24 hours as well as vancomycin, pharmacy dosing. Patient is back on fentanyl drip, propofol drip and norepinephrine. Blood sugars are elevated and insulin Levemir will be i ncreased to 25 mg twice daily. Ferrlecit infusion has been ordered by nephrology for 4 days. Patient is undergoing hemodialysis today.temperature max 100.2, heart rate 134, respiratory rate 34, blood pressure 120/65, pulse ox 94%. tool keeper is sinus tachycardia. Repeat blood work reveals WBC 16.9, hemoglobin 9.7, platelet count 216. D-dimer 8.81. Sodium 134, potassium 3.8, chloride 99, CO2 25, BUN 43 and creatinine 5.36. Blood sugars in the 200s. AST 40. 09/29 Patient had declined more last 48 hours require more sedation, patient is doing hemodialysis, respiratory failure is quite bit worse this time. Patient was inquired the pain is well back on fentanyl drip. Her vent set up with PEEP is limited but higher. No new finding on culture and her chest x-ray continues shows diffuse infiltrate persistent although there is a moderate interval improvement. 09/30 patient's was seen and evaluated. PEEP was reduced to 11 as patient is maintaining good saturation at the current vent settings. 10/01 patient was seen at bedside. She is currently on assist control rate of 28 white tidal volume 350 FiO2 50% and PEEP of 10 which has been reduced by pulmonary as patient name cleaning her oxygen saturation. Arm blood gas was obtained with a pH of 7.35 pCO2 37 pO2 of 63. She remains hemodynamically stable with no need for pressors. Labs were reviewed patient's BUN is 29 crea tinine 3.93 glucose 122 albumin 2.2 sodium 131 chloride 19 hemoglobin is downtrending with a Hb of 7.3 no leukocytosis 7.1. Patient's urine output is minimal at this time. Her rate has increased to 129 and is currently on positive fluid balance even with dialysis. Last dialysis was done yesterday. Continue enteral feeding currently at goal. Antibiotic has been discontinued and continues to remain on DEXA methicillin 4 mg IV daily. 10/02 patient continues to be on trach support with mechanical ventilation. Patient was evaluated by screener operator and was switched to VC control as patient was noted to be double stacking on and off throughout the night. Respiratory rate continue to 28 tidal volume increased to 400 with a PEEP for Dr. Downey. Patient is maintaining oxygen saturation 91% on the current setting. According to the nurse bedside patient saturation drops significantly or she is moved or her sedation is dropped. Patient is currently on propofol drip, fentanyl drip. She did underwent dialysis today and was able to maintain her low pressure without the need of pressors. Labs reviewed today suggest a WBC of 6.7 hemoglobin of 7.0 and d-dimer 3.9 bicarb 17 BUN 38 creatinine 4.8. LDH is 964. Sodium 1:30 likely secondary to volume overload. Urine sodium and urine osmolality ordered. Patient's glucose this morning is 146. Continue to remain on enteral feeding. Urine output is reduced. Fall catheter will be placed today. Continue to remain on dialysis. 10/03: Patient remains on mechanical ventilation and is back on propofol and fentanyl drips. Patient is currently on VC control with tidal volume 400, FiO2 55 and PEEP of 12. Patient still is not making any urine and is dialysis dependent with next treatment planned for tomorrow with removal of 3-3-1/2 L. PEG tube feedings are at goal. Fecal management system remains in place. At the time of evaluation, patient is off levophed. Repeat chest x-ray reveals stable diffuse bilateral airspace disease correlate for ARDS, pulmonary edema or diffuse pneumonia. Temperature max last evening was 101. Temperature currently 99, heart rate 106, respiratory rate 32, blood pressure 101/50, pulse ox 86%. Repeat blood work reveals WBC 6, hemoglobin 7.4, platelet count 160. D-dimer 4.05. Sodium 133, potassium 3.5, chloride 100, CO2 23, BUN 31 creatinine 3.8. Blood sugars are running between 100 and 170. Ferritin 1514. Liver function test normal. LDH 1016, C-reactive protein 13.6. Prognosis remains guarded. 10/04: Patient remains intubated on mechanical ventilation with tidal volume 400, FiO2 65, PEEP of 14. Patient continues to run fevers and repeat blood culture and urine and urine culture ordered for today. Haley catheter has been removed this patient has no significant urine output at about 20 mL per shift. BladderScan is monitored for greater than 300 and the patient is straight cathed. Hemoglobin is 6.8 and she has been ordered 41 unit of packed RBCs today. She is currently on propofol and fentanyl drips. She is scheduled for hemodialysis today. WBC 4.5, hemoglobin 6.8, platelet count 151. D-dimer 3.28. Sodium 132, potassium 4.1, chloride 100, CO2 22, BUN 37 creatinine 4.74. Blood sugars running between 97 and 110. Ferritin 1801. LDH 859. C-reactive protein 14.4. Chest x-ray reveals correlate for pneumonia, edema, ARDS. Prognosis remains guarded. 10/05: Patient remains in intensive care unit currently on mechanical ventilation with tidal volume 400, FiO2 was increased to 100 and PEEP is at 14. She continues to run fevers which have worsened with temperature max 103.1. She has been tachycardic in the 130s, blood pressure is marginal but not on vasopressors. Pulse ox currently 92%. Repeat blood work reveals WBC 5.5, hemoglobin 7.6, platelet count 190. D-dimer 2.7, ferritin 1770, LDH 932, C- reactive protein 21.4. Blood sugars are running between 100 1669. Electrolytes are normal. BUN 27 and creatinine 3.79. Pancultures were done yesterday including a straight cath for urine culture, sputum culture and blood culture. Arterial line was removed as well as midline. She is currently on propofol, fen tanyl and started on Nimbex today. 10/06: Patient remains in the intensive care unit. Today patient in prone position and remains on mechanical ventilation with tidal volume 350, FiO2 65 and PEEP of 14. Her last documented fever was yesterday at 2 PM. Heart rate is in the 120s, respiratory rate 32, pulse ox 88-92%. CBC is unremarkable. Electrolytes are normal. BUN 30 creatinine 2.93. Blood sugars are running between 135 and 164. Cultures from October 04: Blood culture no growth, sputum culture finalized, urine culture finalized. Catheter tip culture is in process. Repeat chest x-ray shows bilateral interstitial infiltrates. Patient is on tube feedings of Nepro at goal of 30 ML's per hour. Patient underwent dialysis yesterday and is scheduled for repeat dialysis today. 10/07: Patient maintains in the intensive care unit intubated and on mechanical ventilation. She is receiving hemodialysis this morning has been every day. Plan is to remove 2-1/2 L today. Vent settings have changed today with tidal volume 350, FiO2 was increased to 100% and PEEP remains at 14. She has been continued on Nimbex, fentanyl, norepinephrine and propofol. Plan is to prone position patient following dialysis. Repeat chest x-ray reveals worsening interstitial infiltrates. BUN is 26 and creatinine 2.59. LDH 955, C-reactive protein 22.1. Prognosis remains poor. 10/08: Patient remains in intensive care unit intubated and on mechanical ventilation with tidal volume 350, FiO2 60, PEEP of 14. She is pronating today. She is scheduled for hemodialysis on a daily basis. She has been afebrile, heart rate 112, respiratory rate 36, blood pressure 161/88, pulse ox 93%. Repeat blood work reveals WBC 9.9, hemoglobin 9.1, platelet count 320. Sodium 133, potassium 5.3, chloride 100, CO2 20, BUN 29 creatinine 2.44. Blood sugar running between 102 and 139. LDH 1026, C-reactive protein 19.7. 10/09: Patient is undergoing dialysis this morning. She continues to be intubated and on mechanical ventilation with tidal volume 350, 270 and PEEP of 14. Patient is also on propofol, Nimbex, norepinephrine and fentanyl drips. Repeat chest x-ray reveals persistent bilateral multifocal and confluent opacities consistent with Covid 19. She is afebrile, heart rate 116, respiratory rate 36, blood pressure 120/65, pulse ox 91%. Repeat blood work reveals WBC 5.4, hemoglobin 9.2, platelet count 216. D-dimer 2.67, ferritin 2568, LDH 794, C- reactive protein 13.9. Blood sugars have been running 90-104. Creatinine 1.64. She is on daily dialysis treatment. 10/10: She remains in the intensive care unit. She is now out of isolation as a repeat Covid test came back negative. She remains on mechanical ventilation with tidal volume 350, FiO2 70 and PEEP of 14. Patient is also on Nimbex, propofol, norepinephrine, fentanyl drips. She is on PEG tube feedings at goal and tolerating well. Repeat blood work reveals WBC 7.8, hemoglobin 7.5, platelet count 267. Sodium 139, potassium 3.9, chloride 109, CO2 20, BUN 20 creatinine 1.29. Blood sugars are running between 76 and 102. Scheduled Aiyana Log decreased to 3 units. Repeat chest x-ray reveals moderate cardiomegaly and continued pulmonary edema. Slight interval improvement. Patient is continued on daily hemodialysis. 10/11: Patient remains in intensive care unit on mechanical ventilation with tidal volume 325, FiO2 70, PEEP 14. She is currently being prone. She underwent hemodialysis this morning with removal of 4 L of fluid with plan to continue daily treatment. She is currently on Nimbex, fentanyl and propofol. No vasopressor at this time. Fecal management system remains in place. She is on tube feedings currently at hold due to prone positioning. Patient has been afebrile, heart rate 116, respiratory rate 36, blood pressure 100/58, pulse ox 93-96%. Repeat blood work reveals WBC 9.3, hemoglobin 8.1, platelet count 276. Sodium 136, potassium 4.3, chloride 103, CO2 20, BUN 20 creatinine 1.14. Blood sugars running between 133 and 202. 10/12: Patient remains in the intensive care unit. She is undergoing hemodialy sis this morning. She's been afebrile, heart rate in the 120s, respiratory rate 32, blood pressure 102/65. She is not on vasopressors. She is continued on Nimbex, fentanyl and propofol. Vent settings are currently tidal volume 325, FiO2 70, PEEP 14. Total platelet count 273. Sodium 133, potassium 4.7, chloride 100, CO2 19, BUN 21 creatinine 0.91. Blood sugars running between 121 and 143. 10/13: Patient remain in the ICU she is on hemodialysis daily, she is still on the vent with a PEEP of 14 and FiO2 of 70. Her oxygenation is marginal pulse rate still high. Patient had scratched cornea was seen in ophthalmology decided to keep doing eyedrops along with eye patch at this point. Prognosis still very bad this point. 10/14: She remains on mechanical ventilation with tidal volume 325, FiO2 70% and PEEP of 14. She did require label fed last evening for about 6 hours. She did not tolerate pronating yesterday. She is undergoing dialysis this morning with plan for removal of 4 L. Blood sugars have been low and IV fluids changed to D10 until blood sugars have recovered. Levemir and scheduled NovoLog discontinued. Patient is on tube feedings at goal there's been no change in th is. 10/15 patient remains on mechanical ventilation in the intensive care unit. FiO2 still at 70%, PEEP of 18. Blood sugars have improved since medications were adjusted. White blood cells 33.9, hemoglobin 8.5, sodium 135, BUN 19, creatinine 0.96. Patient to receive dialysis again today. Patient did run a low-grade fever throughout the night and pro calcitonin level is ordered. Chest x-ray showed continued diffuse bilateral airspace disease. Patient remains on tube feedings at goal. 10/16: Patient remains on mechanical ventilation with tidal volume 300, FiO2 70, PEEP of 15. Fecal management system is out. She is currently on low dose of norepinephrine. She is also on fentanyl drip, propofol drip, rocuronium drip. Heart rate is running in the 130s, sinus rhythm, blood pressure 121/63, pulse ox 95%. Patient is been afebrile. Repeat blood work reveals WBC 18.9, hemoglobin 7.5, platelet count 291. Sodium 135, potassium 4.2, chloride 101, CO2 19, BUN 25 and creatinine 1.36. Blood sugars are running between 143 and 199. Patient is on scale insulin only. Repeat chest x-ray reveals persistent bilateral multifocal and completed opacities consistent with Covid 19. 10/17: Patient remains on mechanical ventilation with tidal volume 300, FiO2 50, PEEP of 14. She is currently receiving hemodialysis. The patient is having yellow-colored drainage from the trach site. This is going to be culture today. Repeat blood work reveals WBC of 24, hemoglobin 7.3 and platelet count 310. Sodium 136, potassium 4.1, chloride 101, CO2 19, BUN 24 creatinine 1.43. Blood sugar 139. Capillary blood glucose running 147 and 189. Repeat chest x-ray is unchanged. Patient had increased respiratory rate 40s and 50s with oxygen saturation of 87 and now was increased and Seroquel added this morning. Prognosis remains guarded. 10/18: Patient remains on mechanical ventilation with tidal volume 300, FiO2 60, PEEP has been decreased to 12. Patient will need a PEEP of 8 in order to tra nsfer to long-term care. She is currently on fentanyl drip and Precedex drip. Patient is tracking when her name is stated. She seems to be slightly improved today. Patient has been afebrile, heart rate 106, respiratory rate 32, blood pressure 110/61, pulse ox 98%. Repeat blood work reveals WBC 30.3, hemoglobin 7.2, platelet count 350. Sodium 139, potassium 4.2, chloride 103, CO2 20, BUN 23 creatinine 1.79. Blood sugars are increasing running up 299. Patient will be placed on Levemir. Secretions from tracheotomy sent for culture and in process. She is currently undergoing hemodialysis. 10/23: Patient remains in the intensive care unit on mechanical ventilation with tidal volume 300, FiO2 65 and PEEP of 10. tool keeper has been in a sinus rhythm. Patient does open her eyes and appears to be tracking. Blood sugars have been elevated. Levemir will be increased to 40 units daily and scheduled NovoLog increased to 12 units and continue NovoLog every 6 hours per scale. Patient is receiving hemodialysis today. She is not currently on vasopressors. Patient is on Precedex drip only. Antibiotics in the form of cefepime were started on October 18. Patient has been afebrile, heart rate 126, respiratory rate 36, blood pressure 163/105. Pulse ox 91%. Repeat blood work reveals WBC 16.0, hemoglobin 7.2, platelet count 208. Electrolytes are within normal limits. BUN 62 and creatinine 2.43. Blood sugars running between 259-321. Most recent blood culture from [facility] 20 is no growth at 24 hours. Repeat chest x-ray reveals cardiomegaly and persistent bilateral pulmonary edema. 10/24: Patient is awake, eyes are open and tracking, she is able to follow simple commands. Severe generalized weakness noted. Precedex gtt has been discontinued. Patient is receiving hemodialysis. Her blood sugars have remained elevated for which Levemir increased to 25 units twice daily along with 15 units of NovoLog every 6 hours along with scale. Tidal volume 330, FiO2 60, PEEP of 8. general manager land department and social insurance analyst following closely. Anticipate possible discharge by the end of next week to long-term care facility. 10/25: Patient remains in the intensive care unit on mechanical ventilation. Tidal volume 350, FiO2 60, PEEP 8. She is receiving hemodialysis this morning. Her heart rate remains elevated in the 130s. Pulmonary as started her on Cardizem at 60 mg 3 times daily which has not had any improved effect. We'll start the patient on Lopressor 25 mg twice daily. Patient has been afebrile, heart rate respiratory rate 32, blood pressure 151/91, pulse ox 98%. Patient is been transfuse 1 unit of packed RBCs today. Patient's mental status is improving and patient is able to follow simple commands. WBC 12.2, hemoglobin 6.3, platelet count 196. Sodium 135 otherwise looked lites are normal, BUN 48 creatinine 1.99. Blood sugars are running between 120 and 172. Levemir has been increased to 30 mg twice daily continue 15 units of NovoLog every 6 hours with scale. 10/26: Patient remains in intensive care unit, on mechanical ventilation with tidal volume 375, FiO2 50, PEEP of 8. Patient's heart rate remains elevated 120s and Lopressor increased to 50 mg twice daily. Patient seems to be quite anxious and depressed. We will decrease Seroquel to 50 mg twice daily and start patient on Lexapro. Patient received her first dose of Xanax this morning but this did not seem to help heart rate either. She has been afebrile, heart rate 128, blood pressure 149/79, pulse ox 93%. Repeat hemoglobin 7.3. Sodium 135, potassium 3.9, chloride 90, CO2 30, BUN 45 and creatinine 1.94. Blood sugar are improved running between 117-194. We will make further adjustments to insulin and to increase long-acting to 35 units twice daily and decrease NovoLog scheduled to 7 units and continue NovoLog scale. There are problems with patient's trach and consequently placed with [facility]. General surgery to reevaluate trach. 10/27: Patient is complaining of nausea today. Concerned that this is related to Lexapro. We will further decrease Seroquel to 50 mg at bedtime. Patient is being bladder scanned and last bladder scan wasn't 125 mL. She does not have Haley catheter. No fecal management system. She is having a bowel movement about 3 per day. Plan is for CPAP trial today. She is currently on mechanical ventilation with tidal volume 375, FiO2 50 and PEEP of 8. She has been afebrile, heart rate 105 which is much improved from the last few days. Blood pressure 145/88, pulse ox 94%. There is a new consult in place for Dr. Clemente regarding exchanging the trach and possible debridement at site. WBC 11.4, hemoglobin 8.2, blood count 218. Sodium 136, potassium 4.1, chloride 97, CO2 31, BUN 47 creatinine 1.97. Blood sugars running between 129 and 204. We have changed long acting insulin to 35 units twice daily and continue NovoLog 7 units every 6 hours and scale every 6 hours. Nephrology may be decreasing frequency of dialysis treatments. Anticipate probable discharge to long-term care next week. 10/28: Patient was complaining of nausea today which has resolved. CPAP trial will continue today. She is currently on mechanical ventilation with a tidal volume 375, FiO2 of 50, PEEP of 8. She is afebrile, heart rate 108 which continues to show improvement. Blood pressure 133/87, pulse ox 99%. Patient is able to follow commands. And answers appropriately with nodding her head. WBC 10.5, hemoglobin 8.0, potassium 4.6, BUN 46, creatinine 1.96. Patient is currently receiving hemodialysis. 10/29: Patient was found sitting up in bed. Able to answer some questions appropriately. Utilizing kim. Able to follow commands. Ann over elevated blood sugars. Levemir 35 units twice a day will continue at this with a 7 unit coverage. Patient remains afebrile. Heart rate 102, respirations 29, blood pressure 124/74, pulse ox 97% on mechanical ventilation. Mechanical ventilation settings with a tidal volume 375, FiO2 of 50 and a PEEP of 8. Family has been into see patient. Hemodialysis will be held today. 10/30: Patient remains in the ICU on mechanical ventilation. She is not requiring pressure support. She is on CPAP support. She is receiving hemodialysis this morning with plan to start a Friday schedule this week. Blood sugars are stable and running between 140 and 184. She is on tube feedings at goal and having bowel movements every 12 hours. Repeat blood work reveals WBC 8.9, hemoglobin 10.2, platelet count 258. Sodium 133, potassium 5.0, chloride 97, CO2 23, BUN 69 creatinine 2.67. 10/31: Patient is seen today in intensive care unit. She remains on mechanical ventilation with tidal volume 375, FiO2 45 of PEEP of 5. Patient is found sitting in a chair working with physical therapy. Patient is noted to have left arm weakness without pain and good sensation. She is not receiving dialysis today and will be started on Friday regime. Patient's heart rate is better controlled in the 80s, blood pressure 113/65, pulse ox 99%. Patient is been afebrile. Patient has been on cefepime. Repeat blood work reveals WBC 9.3, hemoglobin 6.9 and patient is transfused 1 unit of packed RBCs today. Platelet count 248. Electrolytes are within normal range, BUN 38 and creatinine 2.04. Her blood glucose running between 130 and 193. AST 38. Social work is working with the daughter regarding discharge planning. 11/01: A she was undergoing dialysis with plan for 3 L removed today and dialysis is scheduled Friday. She is in bed and appears to be comfortable. She is able to talk and express herself and is cognitively intact. She remains on mechanical ventilation. She has been afebrile, heart rate 107, blood pressure 115/85, pulse ox 99%. Repeat blood work reveals WBC 8.5, hemoglobin 7.5, platelet count 278. Sodium 136, potassium 4.8, chloride 100, CO2 27, BUN 55 creatinine 2.81. Blood sugar running between 114 and 185. Ca lcium 10.3, total bilirubin 0.2, AST 34, ALT 34, alkaline phosphatase 144. Social work is working on discharge planning which will be to [facility], [facility] or [facility]. 11/02: Patient remains in the intensive care unit on mechanical ventilation with tidal volume 375, FiO2 40, PEEP of 5. Patient's mental status continues to be improved. She has been afebrile, heart rate 97, blood pressure 144/86, pulse ox 98%. Repeat blood work reveals WBC 8.3, hemoglobin 7.2, platelet count 255. Sodium 135, potassium 4.5, chloride 98, CO2 20, BUN 42 and creatinine 2.36. Blood sugars are running between 124 278. She is scheduled for hemodialysis tomorrow with plan for 4 L to be removed. Social work is working on discharge plan and once patient has been accepted and insurance authorization is obtained if needed, patient will be discharged. 11/03: Patient remains in intensive care unit on mechanical ventilation patient is currently on pressure support of 15, CPAP of 5 and FiO2 of 40%. A trach collar is to be attempted today in order to get the patient discharged [facility]. Land is for medical [place] on Friday if patient continues to improve. He has been afebrile, heart rate in the 80s, blood pressure 90/57, pulse ox 100%. Repeat blood work reveals WBC 7.5, hemoglobin 6.9, platelet count 255. Sodium 133, potassium 5.1, chloride 97, CO2 27, BUN 59 creatinine 3. Blood sugars up and running 117 164. 11/04 patient remains in ICU, this is day number 55, pulmonary is following closely, they have recommended fenestrated trach, for which Dr. warren is going to perform, patient is anticipated to be discharged to long-term care facility, most likely early next week. She is stable, with no new fevers, antibiotics has been completed, blood sugars are stable, hemoglobin 7.7, WBC 8.5, blood sugars running between 145-150, creatinine of 2.34 11/05: Patient remains in ICU, trach collar replaced by Dr. Zhang this a.m., patient's communicating with handwritten communication mentions that she has back pain, on IV Dilaudid still, we'll replace [place] 7.5, also cannot sleep, muscle relaxants started with cyclobenzaprine, where finalizing discharge planning, to subacute rehab long-term care no fever no chills, coughing a lot, with mucus production, suctioning on the trach when necessary by nursing staff, 11/06: Patient is still having refractory sleep, wakes up with chills and sweats, also. Alternating hot and cold, iron is suspected to be low, hemoglobin of 7.2, check for iron studies, on Ativan and aspirin, start melatonin 6 mg at bedtime, might need Zestril, however is on Seroquel. We'll going to increase Seroquel to 75 mg blood sugars are stable, no change in program today, pain control is better, using [place] 7.5. 11/07: Patient remains in the intensive care unit on trach collar at FiO2 of 35%, flow rate of 8. Patient states that she slept better last evening. We will add in consult for speech therapy to evaluate if patient can start on oral food. She is currently on tube feedings at goal. Repeat blood work reveals WBC 7.9, hemoglobin 8.0, platelet count 238. Sodium 130, potassium 3.9, chloride 93, CO2 28, BUN 48 creatinine 2.84. Capillary blood glucose running between 75 and 129. Iron 22, TIBC 244, iron saturation 9.0 to. Total bilirubin 0.1, AST is 26, ALT 27, alkaline phosphatase 115. TSH 1.7. 11/08: Social work is trying to determine discharge plan. Currently looking at in patient rehab facilities. Patient has been seen by speech therapy and approved for oral intake and she is having her first meal today. She is undergoing hemodialysis today. She's been afebrile, heart rate 88, blood pressure 155/96, pulse ox 94% on trach collar 35% FiO2. Blood sugars are running in the 70s and 80s. Patient is working with therapies. 11/09: Patient is off tube feedings completely and taking all oral nutrition. Dr. See stopped the scheduled Levemir is now blood sugars are on the low side. Patient states she is sleeping well. Seroquel has been completely discontinued. She has been afebrile, heart rate 96, blood pressure 124/78, pulse ox 96% on trach earlier at 35 FiO2. Repeat blood work reveals sodium 138, potassium 3.8, chloride 106, CO2 26, BUN 25 and creatinine 2.26. Blood sugars running between 48 and 125. [employer] worker is trying to make placement for the patient for rehab. 11/10: Patient has been resumed on tube feedings due to low oral intake. She is receiving dialysis this morning and is nauseated and does not feel well. [facility] Midline has been ordered and PICC line discontinued. A consult has been placed with Dr. Walker for evaluation of inpatient rehab. Noted he has documented limited endurance and would not be able to participate in the full inpatient rehab program. Patient has been afebrile, heart rate 95, blood pressure 154/82. Pulse ox 88% on trach collar. Repeat blood work reveals sodium 134, potassium 4.2, chloride 103, CO2 22, BUN 13 creatinine 2.94. Blood sugars are running between 101 125. REVIEW OF SYSTEMS Constitutional: No fever, no chills, no night sweats. No weight change. Profound weakness, + significant fatigue no lethargy. Reported daytime sleepiness. EENT: No headache. No loss of vision. No loss of Hearing. No nasal drainage or congestion. No epistaxis. No sore throat. Lungs: No shortness of breath, cough, no sputum production. No wheezing. Cardiovascular: No chest pain, no lower extremity edema. No palpitations. No paroxysmal nocturnal dyspnea. No orthopnea. No lightheadedness or dizziness. No syncopal episodes. Abdominal: No abdominal pain. Reports nausea, vomiting. No diarrhea. No constipation. No bloody or tarry stools. No loss of appetite. Genitourinary: No dysuria, increased frequency, urgency. No urinary retention. Minimal urine production Musculoskeletal: No myalgias. Noted muscle weakness, noted gait dysfunction, no frequent falls. No back pain. No neck pain. Integumentary: Positive wound-decubitus ulcer, trach wound. No rash or pruritus. No unusual bruising. No change in hair or nails. Neurologic: No aphasia. No facial droop. Noted change in mentation-back to baseline. No head injury. No headache. No paralysis. No paresthesia. Psychiatric: suspected depression. positive anxiety. Endocrine: Noted abnormal blood sugars-stable and monitored. PHYSICAL EXAMINATION Gen: This is is a 35-year-old black female, sitting in ICU bed. Patient is receiving hemodialysis. HEENT: Head is atraumatic, normocephalic. Pupils equal, round. Sclerae is anicteric. Tracheostomy midline. NECK: Supple. No JVD. No lymphadenopathy. No thyromegaly. LUNGS: Lung sounds are clear to auscultation. No intercostal retractions. HEART: Regular rate and rhythm. No murmur. tool keeper sinus tachycardia. ABDOMEN: Soft. Bowel sounds are present. No masses. No tenderness. EXTREMITIES: Trace bilateral pedal edema. No calf tenderness. NEUROLOGICAL: Patient is awake, alert, oriented x3 and able to follow commands, significant weakness. ASSESSMENT AND PLAN 1. Acute hypoxic respiratory failure secondary to Covid 19 pneumonia and possible bacterial pneumonia. Patient was intubated on September 11. She is status post 1 dose of Remdesivir and 1 dose of Tocilizumab. Continue Ventolin inhaler 4 times daily, Lovenox 30 mg subcu daily, supplements. Status post PEG tube and trach. Completed antibiotics. 2. Acute diabetic ketoacidosis secondary to Covid 19 pneumonia, uncontrolled with hyperglycemia. Levemir discontinued, continue scheduled NovoLog 7 units every 6 hours and continue NovoLog scale every 6 hours. 3. Metabolic encephalopathy secondary to Covid 19 and DKA. 4. Sepsis and septic shock secondary to Covid 19 pneumonia with multiorgan failure. Continue as in #1. 5. Acute metabolic acidosis secondary to acute DKA, Covid 19 and acute kidney injury. Renvela 1600 mg q6h. 6. Diabetes mellitus type 2 uncontrolled with A1c 13.6. Continue as above. 7. Hypophosphatemia status post replacement. 8. Hyperkalemia secondary to DKA, resolved. 9. Sinus tachycardia secondary to sepsis, volume deficiency. Patient is on Cardizem 60 mg 3 times daily, and Lopressor 50 mg twice daily. 10. Acute kidney injury secondary to ATN secondary to Covid 19 and DKA. Continue hemodialysis on Friday. 11. Citrobacter pneumonia versus MRSA pneumonia. Completed course of antibiotics. 12. Hypertension. 13. Morbid obesity with BMI of 53. 14. Situational depression and anxiety. Seroquel discontinued, continue Lexapro 10 mg daily and Xanax 0.25 mg twice daily as needed. 15. DVT prophylaxis. Lovenox. 16. GI prophylaxis. Protonix 40 mg IV push daily. 17. Stage IV pressure ulcer to trach site. Currently utilizing absorptive silver dressing. 18. Stage II decubitus ulcer to coccyx. 19. Critical illness polyneuropathy and myopathy. Continue physical therapy. 20. Anemia of chronic disease. Transfuse total of 3 units of packed RBCs, continue Aranesp 40 g every 7 days. CODE STATUS: Full code Prognosis guarded. DISCHARGE PLAN To be determined Impression and plan of care have been directed as dictated by the signing physician. Kimberly Boswell nurse practitioner acting as scribe for signing physician. Objective - Vital Signs Vital signs: Vital Signs Temp 97.6 F 11/10/20 08:00 Pulse 88 11/10/20 10:00 Resp 17 11/10/20 10:00 BP 164/112 11/10/20 10:00 Pulse Ox 93 L 11/10/20 10:00 Intake & Output 11/09/20 11/10/20 11/10/20 18:59 06:59 18:59 Intake Total 220 Output Total 2200 0 0 Balance -2200 220 0 Weight 98.3 kg 98.3 kg Intake: Oral 100 Other 120 Output: Urine 0 0 0 Stool 2200 Other: Voiding Method External Catheter Bedpan # Voids 0 ABP, PAP, CO, CI - Last Documented Arterial Blood Pressure 136/76 - Labs CBC & Chem 7: 11/07/20 03:12 11/10/20 03:55 Labs: Abnormal Lab Results - Last 24 Hours (Table) 11/09/20 11/09/20 11/09/20 Range/Units 05:24 05:24 05:24 Sodium (137-145) mmol/L BUN (7-17) mg/dL Creatinine (0.52-1.04) mg/dL Glucose (74-99) mg/dL POC Glucose (mg/dL) (75-99) mg/dL Calcium (8.4-10.2) mg/dL Total Protein (PEP) 5.6 L (6.2-8.2) g/dL Angiotensin Convert Enz 65 H (8-52) U/L Vitamin D 25-Hydroxy 27.1 L (30.0-100.0) ng/mL PTH Intact (14.0-72.0) pg/mL 11/09/20 11/09/20 11/09/20 Range/Units 11:07 11:47 17:12 Sodium (137-145) mmol/L BUN (7-17) mg/dL Creatinine (0.52-1.04) mg/dL Glucose (74-99) mg/dL POC Glucose (mg/dL) 102 H 100 H (75-99) mg/dL Calcium (8.4-10.2) mg/dL Total Protein (PEP) (6.2-8.2) g/dL Angiotensin Convert Enz (8-52) U/L Vitamin D 25-Hydroxy (30.0-100.0) ng/mL PTH Intact 7.5 L (14.0-72.0) pg/mL 11/10/20 11/10/20 11/10/20 Range/Units 00:25 03:55 06:38 Sodium 134 L (137-145) mmol/L BUN 30 H (7-17) mg/dL Creatinine 2.94 H (0.52-1.04) mg/dL Glucose 101 H (74-99) mg/dL POC Glucose (mg/dL) 125 H 105 H (75-99) mg/dL Calcium 10.3 H (8.4-10.2) mg/dL Total Protein (PEP) (6.2-8.2) g/dL Angiotensin Convert Enz (8-52) U/L Vitamin D 25-Hydroxy (30.0-100.0) ng/mL PTH Intact (14.0-72.0) pg/mL 11/10/20 Range/Units 11:10 Sodium (137-145) mmol/L BUN (7-17) mg/dL Creatinine (0.52-1.04) mg/dL Glucose (74-99) mg/dL POC Glucose (mg/dL) 114 H (75-99) mg/dL Calcium (8.4-10.2) mg/dL Total Protein (PEP) (6.2-8.2) g/dL Angiotensin Convert Enz (8-52) U/L Vitamin D 25-Hydroxy (30.0-100.0) ng/mL PTH Intact (14.0-72.0) pg/mL
[2020-11-10] MEDS: ACETAMINOPHEN TAB 325 MG TAB PO PRN (16:50)
[2020-11-10 17:03] LABS: Glucose,Whole Blood 162 mg/dL (75-99)
[2020-11-10 21:24] LABS: Glucose,Whole Blood 127 mg/dL (75-99)
[2020-11-10] MEDS: ZOLPIDEM 5 MG TAB PO PRN (21:44)
[2020-11-10] MEDS: CYCLOBENZAPRINE 10 MG TAB PO SCH (21:44)
[2020-11-11] MEDS: SEVELAMER 800 MG TAB PO SCH ×4 (00:58→16:40)
[2020-11-11] MEDS: HYDROcodone/APAP 7.5-325MG 1 EACH TAB PO PRN ×2 (03:59→20:00)
[2020-11-11 04:37] LABS: Anisocytosis Slight; Basophils % (A) 0 %; Eosinophils # (A) 1.1 k/uL (0-0.7); Eosinophils % (A) 11 %; HCT 24.4 % (34.0-46.0); HGB 7.7 gm/dL (11.4-16.0); Hypochromasia Marked; Lymphocytes % (A) 10 %; MCH 27.8 pg (25.0-35.0); MCHC 31.5 g/dL (31.0-37.0); MCV 88.2 fL (80.0-100.0); Mean Platelet Volume 7.7; Monocytes # (A) 0.6 k/uL (0-1.0); Monocytes % (A) 6 %; Neutrophils # (A) 6.8 k/uL (1.3-7.7); Neutrophils % (A) 69 %; Platelet Count 211 k/uL (150-450); Poikilocytosis Moderate; RBC 2.76 m/uL (3.80-5.40); WBC 9.9 k/uL (3.8-10.6)
[2020-11-11 04:50] LABS: Calcium 9.3 mg/dL (8.4-10.2); Potassium 3.6 mmol/L (3.5-5.1)
[2020-11-11 06:39] LABS: Glucose,Whole Blood 192 mg/dL (75-99)
--- NOTE | 2020-11-11 08:57 | P.PN ---
Subjective Progress Note Date: 11/11/20 11/11/2020, I'm seeing the patient for a follow-up. She is awake and alert and she is sitting up in her bed. She is becoming stronger every day. She has adequate motor function in the upper and the lower extremity. She is not ready to walk.. We are still thinking rehabilitation for her. She has a tracheostomy tube number x-ray demonstrated Shiley and FiO2 currently is at 80%. Her pulse ox fluctuates well. He and currently is around 88% pulse ox. No significant secretions through her tracheostomy. She is able to talk around she will by plugging his tracheostomy stoma. At the same time the patient is able to swallow. We are still supplementing her with some enteral feeding and she is currently on Nepro at the rate of 34 mL an hour. At the same time, she is taken oral intake mainly in the form of soft diet. She is stooling. No nausea. No vomiting. No diarrhea. No fever. She was sent by rehabilitation services. Her last dialysis was yesterday. She is not going to get dialyzed over the weekend. Creatinine is at 2.2 and the rest of the electrolytes are normal. Her white cell count is at 9.9 with a hemoglobin of 7.7. Objective - Vital Signs Vital signs: Vital Signs Temp 98.6 F 11/11/20 08:00 Pulse 116 H 11/11/20 08:00 Resp 22 11/11/20 08:00 BP 160/109 11/11/20 08:00 Pulse Ox 89 L 11/11/20 08:00 Intake & Output 11/10/20 11/11/20 11/11/20 18:59 06:59 18:59 Intake Total 402 166 Output Total 2600 Balance -2198 166 Weight 98.3 kg Intake: Tube Feeding 102 136 Hemodialysis 300 Other 30 Output: Urine 300 Hemodialysis 2300 Other: Voiding Method Bedpan Bedpan ABP, PAP, CO, CI - Last Documented Arterial Blood Pressure 136/76 - Exam GENERAL EXAM: Sedated, 35-year-old female patient, is awake and alert and oriented currently on a 80% trach collar, sitting up in her bed and she is quite comfortable not having any respiratory distress. HEAD: Normocephalic/atraumatic. EYES: Normal reaction of pupils, equal size. Conjunctiva pink, sclera white. NOSE: Clear with pink turbinates. THROAT: No erythema or exudates. NECK: Right SC hemodialysis catheter placed. Tracheostomy tube secured in plac e. The patient has shiley #6 . No masses, no JVD, no thyroid enlargement, no adenopathy. CHEST: No chest wall deformity. Symmetrical expansion. LUNGS: Equal air entry with bilateral crackles CVS: Regular rate and rhythm, normal S1 and S2, no gallops, no murmurs, no rubs ABDOMEN: PEG tube exit site clean and dry. No hepatosplenomegaly, normal bowel sounds, no guarding or rigidity. EXTREMITIES: No clubbing, no edema, no cyanosis, 2+ pulses and upper and lower extremities. MUSCULOSKELETAL: Muscle strength and tone normal. SPINE: No scoliosis or deformity SKIN: No rashes CENTRAL NERVOUS SYSTEM:Global motor weakness in all 4 extremities, otherwise there is no focal neurological deficit. - Labs CBC & Chem 7: 11/11/20 04:06 11/11/20 04:06 Labs: Abnormal Lab Results - Last 24 Hours (Table) 11/09/20 11/09/20 11/10/20 Range/Units 05:24 05:24 11:10 RBC (3.80-5.40) m/uL Hgb (11.4-16.0) gm/dL Hct (34.0-46.0) % RDW (11.5-15.5) % Eosinophils # (0-0.7) k/uL Sodium (137-145) mmol/L Chloride (98-107) mmol/L BUN (7-17) mg/dL Creatinine (0.52-1.04) mg/dL Glucose (74-99) mg/dL POC Glucose (mg/dL) 114 H (75-99) mg/dL Albumin (PEP) 2.78 L (3.80-4.90) g/dL Eofnx-8-Dysrdadoz 0.57 H (0.10-0.40) g/dL Uypcp-9-Laldykfce 1.01 H (0.60-1.00) g/dL Gamma Globulins 0.55 L (0.70-1.50) g/dL Angiotensin Convert Enz 65 H (8-52) U/L Vit D 1,25-Dihydroxy 12 L (20 - 79) pg/mL 11/10/20 11/10/20 11/11/20 Range/Units 16:59 21:19 04:06 RBC 2.76 L (3.80-5.40) m/uL Hgb 7.7 L (11.4-16.0) gm/dL Hct 24.4 L (34.0-46.0) % RDW 17.0 H (11.5-15.5) % Eosinophils # 1.1 H (0-0.7) k/uL Sodium (137-145) mmol/L Chloride (98-107) mmol/L BUN (7-17) mg/dL Creatinine (0.52-1.04) mg/dL Glucose (74-99) mg/dL POC Glucose (mg/dL) 162 H 127 H (75-99) mg/dL Albumin (PEP) (3.80-4.90) g/dL Ivija-6-Ffvumpgmi (0.10-0.40) g/dL Wvael-7-Jlpwzdarz (0.60-1.00) g/dL Gamma Globulins (0.70-1.50) g/dL Angiotensin Convert Enz (8-52) U/L Vit D 1,25-Dihydroxy (20 - 79) pg/mL 11/11/20 11/11/20 Range/Units 04:06 06:38 RBC (3.80-5.40) m/uL Hgb (11.4-16.0) gm/dL Hct (34.0-46.0) % RDW (11.5-15.5) % Eosinophils # (0-0.7) k/uL Sodium 132 L (137-145) mmol/L Chloride 96 L (98-107) mmol/L BUN 21 H (7-17) mg/dL Creatinine 2.28 H (0.52-1.04) mg/dL Glucose 187 H (74-99) mg/dL POC Glucose (mg/dL) 192 H (75-99) mg/dL Albumin (PEP) (3.80-4.90) g/dL Rmxcf-7-Jpiwcgmqc (0.10-0.40) g/dL Alkri-1-Ljqzccbjo (0.60-1.00) g/dL Gamma Globulins (0.70-1.50) g/dL Angiotensin Convert Enz (8-52) U/L Vit D 1,25-Dihydroxy (20 - 79) pg/mL Assessment and Plan Plan: 1 Acute hypoxic respiratory failure secondary to COVID-19 pneumonia/ARDS, transferred to the intensive care unit on 09/11/2020 and intubated and placed on mechanical ventilator on 09/11/2020. Patient received 1 dose of Remdesivir on 09/11/2020, however based on her quick progression of her hypoxic respiratory failure she received Tocilizumab 800 mg on 09/11/2020. Tracheostomy and PEG tube placed on 09/18/2020. Patient was successfully weaned from the ventilator support, she status post tracheostomy and PEG tube insertion, currently on 11/11/2020 patient is to 80% trach collar no significant respiratory secretions. The patient is currently on no antibiotics. No signs of respiratory distress. 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 Completed a course of cefepime, Currently off antibiotics 3 Acute kidney injury related to ATN, patient currently is dialysis dependent. Her last dialysis session was yesterday with a total of 2 L of ultrafiltration was performed 4 diabetes mellitus, insulin-dependent and the patient is currently on insulin sliding scale coverage with NovoLog, and the patient is currently receiving NovoLog every before meals and at bedtime in addition to 7U every QAC and at bedtime 5 obesity with a BMI is down to 43 6 hypotension, recovered and the patient is currently on no pressors 7 Corneal injury, punctate keratitis, left eye, improved 8 Anemia of chronic disease, requiring transfusions of packed red blood cells, hemoglobin is 7.8 9 Generalized anxiety disorder. 10 hypertriglyceridemia, due to propofol 11 leukocytosis, resolved 13 encephalopathy/delirium , improved and resolved 14 History of hypertension Plan We'll start the patient on hydralazine 50 mg 3 times a day for tighter blood sugar and sugar control. Continue metoprolol and Cardizem for now. Continue the rest of the supportive care. Continue the NovoLog insulin Aggressive physical therapy Dialysis per nephrology Monitor the oxygenation and wean down FiO2 to maintain a saturation above 90% We are looking for [employer] this patient to inpatient rehabilitation. Advance oral diet and should be able to get this patient off the enteral nutr ition once she meets her caloric requirements.
--- NOTE | 2020-11-11 09:09 | P.PN ---
Subjective Patient is seen in follow-up for acute kidney injury. Oliguric. Status post tracheostomy and PEG tube placement this admission. Receiving tube feeding. Off vent. No changes overnight. Awaiting placement. No problems with dialysis yesterday. Vital signs: Stable. General: The patient appeared well nourished and normally developed. HEENT: Tracheostomy noted. LUNGS: Breath sounds decreased. HEART: Regular rate and rhythm. Abdomen: Soft, no distention. EXTREMITITES: Trace edema. Objective - Vital Signs Vital signs: Vital Signs Temp 98.6 F 11/11/20 08:00 Pulse 116 H 11/11/20 08:00 Resp 22 11/11/20 08:00 BP 160/109 11/11/20 08:00 Pulse Ox 89 L 11/11/20 08:00 Intake & Output 11/10/20 11/11/20 11/11/20 18:59 06:59 18:59 Intake Total 402 166 Output Total 2600 Balance -2198 166 Weight 98.3 kg Intake: Tube Feeding 102 136 Hemodialysis 300 Other 30 Output: Urine 300 Hemodialysis 2300 Other: Voiding Method Bedpan Bedpan ABP, PAP, CO, CI - Last Documented Arterial Blood Pressure 136/76 - Labs CBC & Chem 7: 11/11/20 04:06 11/11/20 04:06 Labs: Abnormal Lab Results - Last 24 Hours (Table) 11/09/20 11/09/20 11/10/20 Range/Units 05:24 05:24 11:10 RBC (3.80-5.40) m/uL Hgb (11.4-16.0) gm/dL Hct (34.0-46.0) % RDW (11.5-15.5) % Eosinophils # (0-0.7) k/uL Sodium (137-145) mmol/L Chloride (98-107) mmol/L BUN (7-17) mg/dL Creatinine (0.52-1.04) mg/dL Glucose (74-99) mg/dL POC Glucose (mg/dL) 114 H (75-99) mg/dL Albumin (PEP) 2.78 L (3.80-4.90) g/dL Yyghj-0-Gmwibgvgd 0.57 H (0.10-0.40) g/dL Wkdzx-1-Wsuktxozz 1.01 H (0.60-1.00) g/dL Gamma Globulins 0.55 L (0.70-1.50) g/dL Angiotensin Convert Enz 65 H (8-52) U/L Vit D 1,25-Dihydroxy 12 L (20 - 79) pg/mL 11/10/20 11/10/20 11/11/20 Range/Units 16:59 21:19 04:06 RBC 2.76 L (3.80-5.40) m/uL Hgb 7.7 L (11.4-16.0) gm/dL Hct 24.4 L (34.0-46.0) % RDW 17.0 H (11.5-15.5) % Eosinophils # 1.1 H (0-0.7) k/uL Sodium (137-145) mmol/L Chloride (98-107) mmol/L BUN (7-17) mg/dL Creatinine (0.52-1.04) mg/dL Glucose (74-99) mg/dL POC Glucose (mg/dL) 162 H 127 H (75-99) mg/dL Albumin (PEP) (3.80-4.90) g/dL Jhxqz-0-Chvhsyfem (0.10-0.40) g/dL Dlhud-6-Vbugubtck (0.60-1.00) g/dL Gamma Globulins (0.70-1.50) g/dL Angiotensin Convert Enz (8-52) U/L Vit D 1,25-Dihydroxy (20 - 79) pg/mL 11/11/20 11/11/20 Range/Units 04:06 06:38 RBC (3.80-5.40) m/uL Hgb (11.4-16.0) gm/dL Hct (34.0-46.0) % RDW (11.5-15.5) % Eosinophils # (0-0.7) k/uL Sodium 132 L (137-145) mmol/L Chloride 96 L (98-107) mmol/L BUN 21 H (7-17) mg/dL Creatinine 2.28 H (0.52-1.04) mg/dL Glucose 187 H (74-99) mg/dL POC Glucose (mg/dL) 192 H (75-99) mg/dL Albumin (PEP) (3.80-4.90) g/dL Mcwzi-7-Smwwvuqtb (0.10-0.40) g/dL Dsxuk-3-Sintskmjz (0.60-1.00) g/dL Gamma Globulins (0.70-1.50) g/dL Angiotensin Convert Enz (8-52) U/L Vit D 1,25-Dihydroxy (20 - 79) pg/mL Assessment and Plan Plan: Assessment: 1. Acute kidney injury secondary to ATN secondary to COVID-19 and DKA. Baseline creatinine is near 1. Started on hemodialysis on September 14. Has p-cath. Oliguric. No hydronephrosis noted on kidney ultrasound. 2. DKA s/p insulin drip and IV fluids. 3. Acute hypoxic respiratory failure secondary to COVID-19 pneumonia. Status post tracheostomy this admission. 4. Metabolic acidosis secondary to acute kidney injury and DKA s/p bicarb drip. Improved postdialysis. 5. Hyponatremia, hypervolemic. Stable. 6. Hyperphosphatemia secondary to acute kidney injury. Maintained on Renvela. 7. Anemia of chronic illness and kidney disease. Maintained on Aranesp. Iron deficiency noted - s/p iv iron. Status post blood transfusion this admission. 8. Fluid overload. Improved with ultrafiltration. 9. Hypercalcemia. Patient was on daily vitamin D supplementation which has been discontinued. PTH is appropriately suppressed. Vitamin D level 27.1. 1,25 D3 level 12. RUY level elevated - pulm following. 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 Calcium level better today. Plan: Hemodialysis Friday Maintain tube feeds. Avoid nephrotoxins. Continue to monitor renal function and urine output. Monitor for renal recovery. Awaits placement to ECF.
[2020-11-11] MEDS: ENOXAPARIN 30 MG/0.3 ML SYRINGE SQ SCH (09:37)
[2020-11-11] MEDS: METOPROLOL TARTRATE 50 MG TAB PO SCH ×2 (09:37→22:28)
[2020-11-11] MEDS: DILTIAZEM ORAL 60 MG TAB PO SCH ×3 (09:38→22:30)
[2020-11-11] MEDS: ASCORBIC ACID 500 MG TAB PO SCH ×2 (09:38→22:28)
[2020-11-11] MEDS: INSULIN ASPART (NovoLOG) 100 UNIT/ML VIAL SQ SCH ×8 (09:38→22:29)
[2020-11-11] MEDS: PANTOPRAZOLE 40 MG TABLET PO SCH (09:38)
[2020-11-11] MEDS: HYDROPHILIC CREAM 180 GM TUBE TOPICAL SCH (09:39)
[2020-11-11] MEDS: NYSTATIN 100,000 UNIT/GM POWD 15 GM TOPICAL SCH ×3 (09:40→22:32)
[2020-11-11] MEDS: ESCITALOPRAM 10 MG TAB PO SCH (09:49)
[2020-11-11] MEDS: diphenhydrAMINE 50 MG/ML 1 ML VIAL IVP PRN ×2 (09:49→22:28)
[2020-11-11 11:24] LABS: Glucose,Whole Blood 175 mg/dL (75-99)
--- NOTE | 2020-11-11 11:36 | P.PN ---
Subjective Progress Note Date: 11/11/20 35-year-old female patient of Dr. Arroyo with past medical history of type 2 diabetes comes in with acute shortness of breath associated with high light sugars. Patient on admission was found to have a fever of 101.5 pulse rate 125 respiratory rate 20. Blood pressure 132/106. On chest x-ray obtained in the ER suggestive of bilateral infiltrates concerning for call with pneumonia. COVID PCR was positive. On admissions patient had an ABG with a pH of 7.14 pCO2 of 20, pO2 of 59, bicarb of 7. Patient's blood sugar on admission was 424 on assessment today patient's blood work patient had a sodium 135 potassium 5.4 chloride 123 bicarb less than 5 and creatinine 0.73. D-dimer was elevated on admission patient 9 28 patient given 1 L of IV fluids followed by normal saline running at 200 mL/h. Patient was positive for acetone on admission. She will anion gap closed and was switched to D5NS. Insulin drip was continued during the night and was switched to patient's home medication this morning. One dose of remdesiver was ordered. Apparently around noon, A- team was called on the patient secondary to hypoxia patient's oxygen saturation dropped to the 70s and 80s on 100% nonrebreather. Patient was switched to BiPAP on 18/12 and is doing better o FiO2 of 80%. ABG was obtained and ph was 7. 14 pCO2 of 28 bicarb of 7 pO2 of 17. Patient noted to have uncompensated metabolic acidosis with compensated respiratory alkalosis. Stat dose of 1 amp bicarb was given and followed by sodium bicarbonate drip. Insulin drip restarted. Patient's initiated on dexamethasone 6 mg IV twice a da y. Potassium phosphate ordered as phosphorus is low. Patient's repeat blood gases suggest a pH of 7.25, CO2 32 pO2 of 72 bicarb 14. I will not normal saline at 100 mL/h as patient's anion gap has increased. Patient given 1 dose of 2 mg of morphine with improvement in respiratory rate. One dose of Ativan 0.5 mg was given. Xanax 0.25 twice a day along with Ativan 0.5 IV every 6 hours ordered for the patient. Vitals were evaluated patient pulse 129 [id number]. She was moved to the ICU. Precedex drip was initiated. Lopressor was initiated at 25 twice a day. Metoprolol tartrate 5 mg IV every 6 hours. Systolic blood pressure more than 160. Started chest x-ray was obtained and suggest stable bilateral consolidation suggestive of COVID-19 pneumonia. 09/12 patient is seen in the ICU is currently mechanically ventilated and sedated on vent settings of respiratory rate 36, tidal volume 375 FiO2 80% PEEP of 18.. Vital signs reviewed patient had a temp of 100.4 pulse 150 respiratory rate 36 oxygen saturation 95% on 80% on fio2 .'s labs are reviewed which patient had a d-dimer 1.84 that is increased to 14.3. Arterial Blood gas suggest ph 7.35, CO2 40, po2 62, . Her BMP suggest a sodium 135 potassium 3.7 chloride 112 bicarb 21 creatinine 1.57 for calcitonin is 3.5 CRP is increased from 8.78.2 LDH is increased to 2614. Patient remains on Pneumovax, propofol drip. Lovenox increased to 50 subcu twice a day. Patient received 2 L of IV fluids. Continue IV fluids at 100 mL/h. Bicarb drip discontinued patient initiated on Zosyn 3.375 every 8 hours. Continue insulin drip at 4 units per hour. Patient is currently in prone positioning 09/13: Patient evaluated in the ICU remains on Ventilation continues to be sedated, in prone position. Vent settings are respiratory rate 36, tidal vital 375, FiO2 70% PEEP of 18. ABG shows pO2 of 82, PCO2 of 39, pH is 7.19. Latest labs show WBC 11.1, hemoglobin 13.2, d-dimer still pending, but yesterday was up to 14.3. Creatinine up to 3.4, BUN 24 sodium 137, potassium 4.0. Patient's urine output has been low, nephrology on consult. Bicarb drip increased to 100 miles an hour, receiving another liter of normal saline, she did have a ultrasound that showed unremarkable bilateral kidneys. Repeat chest x-ray showed bilateral lung infiltrates that are stable. Anion gap has closed, will start Lantus 10 units at at bedtime Novolog every 6 hours. 09/14: Patient is seen in the ICU, still currently mechanically ventilated and sedated. She continues in the prone position. Her oxygen quickly drops if she is not in prone. Patient's kidney function has worsened. Laboratory values show creatinine of 4.87, BUN 33, LDH 2191, C-reactive protein 2.7. ABG shows pH 7.32, pO2 of 60, pCO2 43. Patient is making almost no urine overnight. Nephrology is following patient continues on cefepime for urinary tract infection, culture is still pending. Vascular has been consulted for placement of temporary hemodialysis catheter for plans for dialysis. 09/15: Patient evaluated in the ICU, continues to be mechanically ventilated and sedated on assist control ventilation rate of 36, tidal volume 375, FiO2 100% and PEEP of 18. ABG today shows pO2 58, pCO2 of 45, and pH 7.35. She continues on tube feedings. Yesterday patient underwent ultrasound-guided right internal jugular non-tunneled hemodialysis catheter placement. Patient underwent hemodialysis treatment last night and plans have another hemodialysis treatment today. She continues to make almost no urine. She continues on cefepime for antibiotic coverage, and continues on Decadron and Lovenox. 09/16: Patient seen on follow-up remains in the ICU mechanically ventilated and sedated. She continues on assist control rate of 36, tidal volume 375, FiO2 100 % and PEEP of 20. PEEP had to be increased due to patient had to be in supine position for dialysis, will go back to prone position once dialysis is complete. ABG shows pH 7.32, pCO2 49, PaO2 61. Laboratory values showed WBC 11.2, hemoglobin 11, sodium 134, creatinine 4.44, BUN 38. Urine culture shows no growth, blood cultures show no growth to date. Repeat chest x-ray shows bilateral pleural effusions, correlate for ARDS, pulmonary edema, diffuse pneumonia, findings are stable from last exam. Patient does not require any pressors, blood pressure 133/57, heart rate 78. 5/16: Patient was evaluated in the ICU today for follow-up. She continues to be intubated and on mechanical ventilation. Current vent settings are tidal volume 375, FiO2 100% and PEEP of 20. ABG shows pH 7.37, pCO2 40, pO2 102. She continues with intermittent prone positioning. Patient continues to have almost no urine output, maintained on dialysis. Patient received dialysis yesterday without complication. Laboratory values revealed WBC 10.3, hemoglobin 10.4, sodium 132, potassium 3.1, BUN 33, creatinine 4.29, LDH 1913, C-reactive protein 1.3. Urine and sputum cultures are negative, blood cultures show no growth to date. Consult placed to dietary to start TPN[ ] 09/18: She remains in the intensive care unit intubated and on mechanical ventilation with tidal volume 375, FiO2 60 and PEEP of 20. Patient is being prone to daily at approximately 16 hours per day. Pulmonary medicine has added in Dr. Zhang to do PEG tube and trach today. Patient is not on vasopressors. Repeat blood work reveals WBC 12.6, hemoglobin 9.8, platelet count 212. Sodium 133, potassium 3.2, chloride 102, CO2 21, BUN 35 and creatinine 4.12. Blood sugar 126. Patient underwent hemodialysis yesterday with removal of 2 L and is scheduled again today with goal of 2-3 L and is scheduled again tomorrow. 09/19: She is scheduled for hemodialysis today and is off fentanyl temporarily. Patient is status post trach and PEG tube yesterday. And she remains on mechanical ventilation. Pulse ox 93-95%. She has been afebrile, heart rate 64, respiratory rate 36, blood pressure 115/50. Fentanyl is off to improve blood pressure for hemodialysis which is scheduled for today. Contacted vascular surgery about permanent hemodialysis catheter. Repeat blood work reveals WBC 14.3, hemoglobin 9.6, platelet count 200. D-dimer 6.48. LDH 1686. C-reactive protein 1.1. BUN 34 creatinine 3.81. Sodium 130, potassium 3.5, chloride 101, CO2 18. Blood sugars running between 101 198. Plan is to wean off Pneumovax today. Patient remains on insulin drip. Repeat chest x-ray reveals bilateral multifocal confluent opacities consistent with COVID-19. Some improved aeration periphery of the left lung and worsening opacities throughout the right lung. 09/20: She remains in the intensive care unit on mechanical ventilation. She has been afebrile, heart rate 65, respiratory rate 37, blood pressure 121/70, pulse ox 91-99%. Repeat blood work reveals WBC 14.5, hemoglobin 9.1, platelet count 216. D-dimer 6.13. Sodium 133, potassium 3.1, chloride 102, CO2 18, BUN 35 and creatinine 4.27. Blood sugars running between 128 and 143. LDH 1717. C- reactive protein 1.7. Patient remains on insulin drip which will be transiti oned to NovoLog scale every 6 hours. Patient is scheduled for permanent hemodialysis catheter placement today with vascular surgery. Repeat chest x-ray reveals stable diffuse bilateral interstitial and airspace disease. Possible small right effusion. His work is following for transfer to remote computer terminal operator care facility. Do not anticipate discharge until next week. 09/21: Patient is undergoing hemodialysis. She remains on mechanical ventilation with tidal volume 375, FiO2 down to 45 and PEEP was decreased to 15. Patient is continued on propofol, fentanyl drips. She is on tube feedings at goal. Patient was taken off insulin drip yesterday and on scale only but blood sugars are running in the 200s, Levemir scheduled at bedtime will be added. Other blood work reveals WBC 13.3, hemoglobin 8.7, platelet count 192. Sodium 137, potassium 3.6, chloride 107, CO2 18, BUN 34 and creatinine 4.21. Repeat chest x-ray is stable. 09/22: She remains in the intensive care on mechanical ventilation with tidal volume 375, FiO2 of 50 and PEEP of 10. Pulse ox is running 96%. She is afebrile, heart rate in the 50s, respiratory rate 36, blood pressure 100/64. Repeat blood work reveals WBC 16.5, hemoglobin 8.9, platelet count 213. Sodium 134, potassium 3.7, chloride 103, CO2 21, BUN 34 and creatinine 3.89. Blood sugars running in the 200s to 324. Levemir increased to 16 units at bedtime and continue NovoLog scale every 6 hours. Patient is on tube feedings at goal. She has a Haley catheter in with a scant amount of dark/brown urine. Fecal management system is in place. Repeat chest x-ray reveals diffuse bilateral airspace infiltrates persist unchanged. Patient is scheduled for hemodialysis tomorrow morning on Friday. 09/23: Patient remains on mechanical ventilation with tidal volume 3.75, FiO2 50 and PEEP of 10. potline monitor sinus rhythm. She has no urine output. Fecal management system is in place. She is undergoing dialysis at this time with plan for removal of 2-1/2 L. She has been afebrile, heart rate in the 50s, respiratory rate 36, blood pressure 108/76 and pulse ox 89%. WBC 13.6, hemoglobin 9.1, platelet count 194. Sodium 136, potassium 3.0 and was replaced, chloride 106, CO2 21, BUN 49 creatinine 5.31. Blood sugars are running between 182 and this morning 194. Patient was still in the 200s and 300s. Levemir last evening was increased to 16 units. Patient remains on propofol and fentanyl drips. Lovenox was increased to 60 mg twice daily. 09/24: PEEP was increased today to 20, tidal volume is at 375 and FiO2 of 50%. Patient has been afebrile. She has been started on levo fed. Repeat chest x- ray reveals bilateral multifocal confluent opacities consistent with Covid 19 or ARDS redemonstrated. Nephrology will plan dialysis for tomorrow for 3 L. Patient remains on propofol fentanyl and Nimbex. WBC 12.5, hemoglobin 9.8, platelet count 161. D-dimer 13.3. Sodium 132, potassium 3.4, chloride 102, CO2 20, BUN 48 and creatinine 4.67. Blood sugars extremely elevated to 96-409. LDH 2217. 09/25: Patient remains in the intensive care unit on mechanical ventilation with tidal volume 375, FiO2 50 and PEEP of 20. Patient is afebrile, heart rate 61, respiratory rate 36, blood pressure 102/56, pulse ox 97%. Repeat blood work reveals WBC 9.3, hemoglobin 8.5 and platelet count 171. Sodium 130, potassium 3.7, chloride 100, CO2 20, BUN 61 creatinine 5.65. Blood sugars have been elevated up to 455. Levemir increased to 20 units twice daily, NovoLog 5 units every 6 hours and continue NovoLog scale. Patient is scheduled for hemodialysis today. Repeat chest x-ray reveals bilateral multifocal and confluent opacities. Decadron and Lovenox dosing change by pulmonary. Patient is off norepinephrine. 09/26: Patient remains in the intensive care unit on mechanical ventilation with tidal volume 375, FiO2 50 and PEEP of 15. She has been afebrile, heart rate 91, blood pressure 114/68, pulse ox 99%. potline monitor sinus rhythm. 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 Sodium 134, potassium 3.6, chloride 102, CO2 22, BUN 41 creatinine 4.21. Patient has improved blood sugars this morning running 150s and 160s. Diabetic medications were adjusted yesterday. Patient is awake and alert and interacting. Yesterday, patient had PICC line inserted by interventional radiology. Repeat chest x-ray reveals diffuse airspace infiltrates in both lung ann appear to progress slightly in the interval. 09/27: Patient remains in intensive care unit on mechanical ventilation with improvement of settings with tidal volume 375, FiO2 decreased to 40 and PEEP decreased to 10. Patient is on hemodialysis every other day and plan to remove 3 L today. Patient is more awake and alert. She is slow to respond but is able to follow simple commands. Blood sugars are running between 84 and 123. Repeat blood work reveals WBC 7.1, hemoglobin 8.1, platelets 152. Sodium 135, potassium 3.6, chloride 103, CO2 21, BUN 53 and creatinine 5.88. Repeat chest x-ray revealed cardiomegaly and pulmonary edema. Patient is on tube feedings:. Patient is not require vasopressors and is off sedation. Fecal management system remains in place for brown liquid stool. C. difficile was negative. 09/28: Patient remains on mechanical ventilation with tidal volume 375, FiO2 increased to 80 and PEEP increased to 18. Patient had a rough night was very anxious, no pain. Xanax 0.25 mg 3 times daily was added. There is concern for pulmonary embolism for which patient was started on heparin drip, she is unable to undergo CAT scan. Venous Doppler bilateral lower extremities was nondiagnostic due to extensive edema in obese patient but minimal imaging of the popliteal veins does show flow. Repeat echocardiogram has been ordered. Cefepime has also been ordered at 1 g IV piggyback every 24 hours as well as vancomycin, pharmacy dosing. Patient is back on fentanyl drip, propofol drip and norepinephrine. Blood sugars are elevated and insulin Levemir will be increased to 25 mg twice daily. Ferrlecit infusion has been ordered by nephrology for 4 days. Patient is undergoing hemodialysis today.temperature max 100.2, heart rate 134, respiratory rate 34, blood pressure 120/65, pulse ox 94%. potline monitor is sinus tachycardia. Repeat blood work reveals WBC 16.9, hemoglobin 9.7, platelet count 216. D-dimer 8.81. Sodium 134, potassium 3.8, chloride 99, CO2 25, BUN 43 and creatinine 5.36. Blood sugars in the 200s. AST 40. 09/29 Patient had declined more last 48 hours require more sedation, patient is doing hemodialysis, respiratory failure is quite bit worse this time. Patient was inquired the pain is well back on fentanyl drip. Her vent set up with PEEP is limited but higher. No new finding on culture and her chest x-ray continues shows diffuse infiltrate persistent although there is a moderate interval improvement. 09/30 patient's was seen and evaluated. PEEP was reduced to 11 as patient is maintaining good saturation at the current vent settings. 10/01 patient was seen at bedside. She is currently on assist control rate of 28 white tidal volume 350 FiO2 50% and PEEP of 10 which has been reduced by pulmonary as patient name cleaning her oxygen saturation. Arm blood gas was obtained with a pH of 7.35 pCO2 37 pO2 of 63. She remains hemodynamically stable with no need for pressors. Labs were reviewed patient's BUN is 29 creatinine 3.93 glucose 122 albumin 2.2 sodium 131 chloride 19 hemoglobin is downtrending with a Hb of 7.3 no leukocytosis 7.1. Patient's urine output is mi nimal at this time. Her rate has increased to 129 and is currently on positive fluid balance even with dialysis. Last dialysis was done yesterday. Continue enteral feeding currently at goal. Antibiotic has been discontinued and continues to remain on DEXA methicillin 4 mg IV daily. 10/02 patient continues to be on trach support with mechanical ventilation. Patient was evaluated by strap machine operator automatic and was switched to VC control as patient was noted to be double stacking on and off throughout the night. Respiratory rate continue to 28 tidal volume increased to 400 with a PEEP for Dr. Downey. Dariana woodward is maintaining oxygen saturation 91% on the current setting. According to the nurse bedside patient saturation drops significantly or she is moved or her sedation is dropped. Patient is currently on propofol drip, fentanyl drip. She did underwent dialysis today and was able to maintain her low pressure without the need of pressors. Labs reviewed today suggest a WBC of 6.7 hemoglobin of 7. 0 and d-dimer 3.9 bicarb 17 BUN 38 creatinine 4.8. LDH is 964. Sodium 1:30 likely secondary to volume overload. Urine sodium and urine osmolality ordered. Patient's glucose this morning is 146. Continue to remain on enteral feeding. Urine output is reduced. Fall catheter will be placed today. Continue to remain on dialysis. 10/03: Patient remains on mechanical ventilation and is back on propofol and fentanyl drips. Patient is currently on VC control with tidal volume 400, FiO2 55 and PEEP of 12. Patient still is not making any urine and is dialysis dependent with next treatment planned for tomorrow with removal of 3-3-1/2 L. PEG tube feedings are at goal. Fecal management system remains in place. At the time of evaluation, patient is off levophed. Repeat chest x-ray reveals st able diffuse bilateral airspace disease correlate for ARDS, pulmonary edema or diffuse pneumonia. Temperature max last evening was 101. Temperature currently 99, heart rate 106, respiratory rate 32, blood pressure 101/50, pulse ox 86%. Repeat blood work reveals WBC 6, hemoglobin 7.4, platelet count 160. D-dimer 4.05. Sodium 133, potassium 3.5, chloride 100, CO2 23, BUN 31 creatinine 3.8. Blood sugars are running between 100 and 170. Ferritin 1514. Liver function test normal. LDH 1016, C-reactive protein 13.6. Prognosis remains guarded. 10/04: Patient remains intubated on mechanical ventilation with tidal volume 400, FiO2 65, PEEP of 14. Patient continues to run fevers and repeat blood culture and urine and urine culture ordered for today. Haley catheter has been removed this patient has no significant urine output at about 20 mL per shift. BladderScan is monitored for greater than 300 and the patient is straight cathed. Hemoglobin is 6.8 and she has been ordered 41 unit of packed RBCs today. She is currently on propofol and fentanyl drips. She is scheduled for hemodialysis today. WBC 4.5, hemoglobin 6.8, platelet count 151. D-dimer 3.28. Sodium 132, potassium 4.1, chloride 100, CO2 22, BUN 37 creatinine 4.74. Blood sugars running between 97 and 110. Ferritin 1801. LDH 859. C-reactive protein 14.4. Chest x-ray reveals correlate for pneumonia, edema, ARDS. Prognosis remains guarded. 10/05: Patient remains in intensive care unit currently on mechanical ventilation with tidal volume 400, FiO2 was increased to 100 and PEEP is at 14. She continues to run fevers which have worsened with temperature max 103.1. She has been tachycardic in the 130s, blood pressure is marginal but not on vasopressors. Pulse ox currently 92%. Repeat blood work reveals WBC 5.5, hemoglobin 7.6, platelet count 190. D-dimer 2.7, ferritin 1770, LDH 932, C- reactive protein 21.4. Blood sugars are running between 100 1669. Electrolytes are normal. BUN 27 and creatinine 3.79. Pancultures were done yesterday including a straight cath for urine culture, sputum culture and blood culture. Arterial line was removed as well as midline. She is currently on propofol, fentanyl and started on Nimbex today. 10/06: Patient remains in the intensive care unit. Today patient in prone position and remains on mechanical ventilation with tidal volume 350, FiO2 65 and PEEP of 14. Her last documented fever was yesterday at 2 PM. Heart rate is in the 120s, respiratory rate 32, pulse ox 88-92%. CBC is unremarkable. Electrolytes are normal. BUN 30 creatinine 2.93. Blood sugars are running between 135 and 164. Cultures from October 04: Blood culture no growth, sputum culture finalized, urine culture finalized. Catheter tip culture is in process. Repeat chest x-ray shows bilateral interstitial infiltrates. Patient is on tube feedings of Nepro at goal of 30 ML's per hour. Patient underwent dialysis yesterday and is scheduled for repeat dialysis today. 10/07: Patient maintains in the intensive care unit intubated and on mechanical ventilation. She is receiving hemodialysis this morning has been every day. Plan is to remove 2-1/2 L today. Vent settings have changed today with tidal volume 350, FiO2 was increased to 100% and PEEP remains at 14. She has been continued on Nimbex, fentanyl, norepinephrine and propofol. Plan is to prone position patient following dialysis. Repeat chest x-ray reveals worsening interstitial infiltrates. BUN is 26 and creatinine 2.59. LDH 955, C-reactive protein 22.1. Prognosis remains poor. 10/08: Patient remains in intensive care unit intubated and on mechanical ventilation with tidal volume 350, FiO2 60, PEEP of 14. She is pronating today. She is scheduled for hemodialysis on a daily basis. She has been afebrile, heart rate 112, respiratory rate 36, blood pressure 161/88, pulse ox 93%. Rep eat blood work reveals WBC 9.9, hemoglobin 9.1, platelet count 320. Sodium 133, potassium 5.3, chloride 100, CO2 20, BUN 29 creatinine 2.44. Blood sugar running between 102 and 139. LDH 1026, C-reactive protein 19.7. 10/09: Patient is undergoing dialysis this morning. She continues to be intubated and on mechanical ventilation with tidal volume 350, 270 and PEEP of 14. Patient is also on propofol, Nimbex, norepinephrine and fentanyl drips. Repeat chest x-ray reveals persistent bilateral multifocal and confluent opacities consistent with Covid 19. She is afebrile, heart rate 116, respiratory rate 36, blood pressure 120/65, pulse ox 91%. Repeat blood work reveals WBC 5.4, hemoglobin 9.2, platelet count 216. D-dimer 2.67, ferritin 2568, LDH 794, C- reactive protein 13.9. Blood sugars have been running 90-104. Creatinine 1.64. She is on daily dialysis treatment. 10/10: She remains in the intensive care unit. She is now out of isolation as a repeat Covid test came back negative. She remains on mechanical ventilation with tidal volume 350, FiO2 70 and PEEP of 14. Patient is also on Nimbex, propofol, norepinephrine, fentanyl drips. She is on PEG tube feedings at goal and tolerating well. Repeat blood work reveals WBC 7.8, hemoglobin 7.5, platelet count 267. Sodium 139, potassium 3.9, chloride 109, CO2 20, BUN 20 creatinine 1.29. Blood sugars are running between 76 and 102. Scheduled NovoLog decreased to 3 units. Repeat chest x-ray reveals moderate cardiomegaly and continued pulmonary edema. Slight interval improvement. Patient is jing nued on daily hemodialysis. 10/11: Patient remains in intensive care unit on mechanical ventilation with tidal volume 325, FiO2 70, PEEP 14. She is currently being prone. She underwent hemodialysis this morning with removal of 4 L of fluid with plan to continue daily treatment. She is currently on Nimbex, fentanyl and propofol. No vasopressor at this time. Fecal management system remains in place. She is on tube feedings currently at hold due to prone positioning. Patient has been afebrile, heart rate 116, respiratory rate 36, blood pressure 100/58, pulse ox 93-96%. Repeat blood work reveals WBC 9.3, hemoglobin 8.1, platelet count 276. Sodium 136, potassium 4.3, chloride 103, CO2 20, BUN 20 creatinine 1.14. Blood sugars running between 133 and 202. 10/12: Patient remains in the intensive care unit. She is undergoing hemodialysis this morning. She's been afebrile, heart rate in the 120s, respiratory rate 32, blood pressure 102/65. She is not on vasopressors. She is continued on Nimbex, fentanyl and propofol. Vent settings are currently tidal volume 325, FiO2 70, PEEP 14. Total platelet count 273. Sodium 133, potassium 4.7, chloride 100, CO2 19, BUN 21 creatinine 0.91. Blood sugars running between 121 and 143. 10/13: Patient remain in the ICU she is on hemodialysis daily, she is still on the vent with a PEEP of 14 and FiO2 of 70. Her oxygenation is marginal pulse rate still high. Patient had scratched cornea was seen in ophthalmology decided to keep doing eyedrops along with eye patch at this point. Prognosis still very bad this point. 10/14: She remains on mechanical ventilation with tidal volume 325, FiO2 70% and PEEP of 14. She did require label fed last evening for about 6 hours. She did not tolerate pronating yesterday. She is undergoing dialysis this morning with plan for removal of 4 L. Blood sugars have been low and IV fluids changed to D1 0 until blood sugars have recovered. Levemir and scheduled NovoLog discontinued. Patient is on tube feedings at goal there's been no change in this. 10/15 patient remains on mechanical ventilation in the intensive care unit. FiO2 still at 70%, PEEP of 18. Blood sugars have improved since medications were adjusted. White blood cells 33.9, hemoglobin 8.5, sodium 135, BUN 19, creatinine 0.96. Patient to receive dialysis again today. Patient did run a low-grade fever throughout the night and pro calcitonin level is ordered. Chest x-ray showed continued diffuse bilateral airspace disease. Patient remains on tube feedings at goal. 10/16: Patient remains on mechanical ventilation with tidal volume 300, FiO2 70, PEEP of 15. Fecal management system is out. She is currently on low dose of norepinephrine. She is also on fentanyl drip, propofol drip, rocuronium drip. Heart rate is running in the 130s, sinus rhythm, blood pressure 121/63, pulse ox 95%. Patient is been afebrile. Repeat blood work reveals WBC 18.9, hemoglobin 7.5, platelet count 291. Sodium 135, potassium 4.2, chloride 101, CO2 19, BUN 25 and creatinine 1.36. Blood sugars are running between 143 and 199. Patient is on scale insulin only. Repeat chest x-ray reveals persistent bilateral multifocal and completed opacities consistent with Covid 19. 10/17: Patient remains on mechanical ventilation with tidal volume 300, FiO2 50, PEEP of 14. She is currently receiving hemodialysis. The patient is having yellow-colored drainage from the trach site. This is going to be culture today. Repeat blood work reveals WBC of 24, hemoglobin 7.3 and platelet count 310. Sodium 136, potassium 4.1, chloride 101, CO2 19, BUN 24 creatinine 1.43. Blood sugar 139. Capillary blood glucose running 147 and 189. Repeat chest x-ray is unchanged. Patient had increased respiratory rate 40s and 50s with oxygen saturation of 87 and now was increased and Seroquel added this morning. Prognosis remains guarded. 10/18: Patient remains on mechanical ventilation with tidal volume 300, FiO2 60, PEEP has been decreased to 12. Patient will need a PEEP of 8 in order to transfer to long-term care. She is currently on fentanyl drip and Precedex drip. Patient is tracking when her name is stated. She seems to be slightly im proved today. Patient has been afebrile, heart rate 106, respiratory rate 32, blood pressure 110/61, pulse ox 98%. Repeat blood work reveals WBC 30.3, hemoglobin 7.2, platelet count 350. Sodium 139, potassium 4.2, chloride 103, CO2 20, BUN 23 creatinine 1.79. Blood sugars are increasing running up 299. Patient will be placed on Levemir. Secretions from tracheotomy sent for culture and in process. She is currently undergoing hemodialysis. 10/23: Patient remains in the intensive care unit on mechanical ventilation with tidal volume 300, FiO2 65 and PEEP of 10. potline monitor has been in a sinus rhythm. Patient does open her eyes and appears to be tracking. Blood sugars have been elevated. Levemir will be increased to 40 units daily and scheduled NovoLog increased to 12 units and continue NovoLog every 6 hours per scale. Patient is receiving hemodialysis today. She is not currently on vasopressors. Patient is on Precedex drip only. Antibiotics in the form of cefepime were started on October 18. Patient has been afebrile, heart rate 126, respiratory rate 36, blood pressure 163/105. Pulse ox 91%. Repeat blood work reveals WBC 16.0, hemoglobin 7.2, platelet count 208. Electrolytes are within normal limits. BUN 62 and creatinine 2.43. Blood sugars running between 259-321. Most recent blood culture from October 22 is no growth at 24 hours. Repeat chest x-ray reveals cardiomegaly and persistent bilateral pulmonary edema. 10/24: Patient is awake, eyes are open and tracking, she is able to follow simple commands. Severe generalized weakness noted. Precedex gtt has been discontinued. Patient is receiving hemodialysis. Her blood sugars have remained elevated for which Levemir increased to 25 units twice daily along with 15 units of NovoLog every 6 hours along with scale. Tidal volume 330, FiO2 60, PEEP of 8. manager operations and procurement and social welfare administrator following closely. Anticipate possible discharge by the end of next week to long-term care facility. 10/25: Patient remains in the intensive care unit on mechanical ventilation. Tidal volume 350, FiO2 60, PEEP 8. She is receiving hemodialysis this morning. Her heart rate remains elevated in the 130s. Pulmonary as started her on Cardizem at 60 mg 3 times daily which has not had any improved effect. We'll start the patient on Lopressor 25 mg twice daily. Patient has been afebrile, heart rate respiratory rate 32, blood pressure 151/91, pulse ox 98%. Patient is been transfuse 1 unit of packed RBCs today. Patient's mental status is improving and patient is able to follow simple commands. WBC 12.2, hemoglobin 6.3, platelet count 196. Sodium 135 otherwise looked lites are normal, BUN 48 creatinine 1.99. Blood sugars are running between 120 and 172. Levemir has been increased to 30 mg twice daily continue 15 units of NovoLog every 6 hours with scale. 10/26: Patient remains in intensive care unit, on mechanical ventilation with tidal volume 375, FiO2 50, PEEP of 8. Patient's heart rate remains elevated 120s and Lopressor increased to 50 mg twice daily. Patient seems to be quite anxious and depressed. We will decrease Seroquel to 50 mg twice daily and start patient on Lexapro. Patient received her first dose of Xanax this morning but this did not seem to help heart rate either. She has been afebrile, heart rate 128, blood pressure 149/79, pulse ox 93%. Repeat hemoglobin 7.3. Sodium 135, potassium 3.9, chloride 90, CO2 30, BUN 45 and creatinine 1.94. Blood sugar are improved running between 117-194. We will make further adjustments to insulin and to increase long-acting to 35 units twice daily and decrease NovoLog scheduled to 7 units and continue NovoLog scale. There are problems with patient's trach and consequently placed with [facility]. General surgery to reevaluate trach. 10/27: Patient is complaining of nausea today. Concerned that this is related to Lexapro. We will further decrease Seroquel to 50 mg at bedtime. Patient is being bladder scanned and last bladder scan wasn't 125 mL. She does not have Haley catheter. No fecal management system. She is having a bowel movement about 3 per day. Plan is for CPAP trial today. She is currently on mechanical ventilation with tidal volume 375, FiO2 50 and PEEP of 8. She has been afebrile, heart rate 105 which is much improved from the last few days. Blood pressure 145/88, pulse ox 94%. There is a new consult in place for Dr. Clemente regarding exchanging the trach and possible debridement at site. WBC 11.4, hemoglobin 8.2, blood count 218. Sodium 136, potassium 4.1, chloride 97, CO2 31, BUN 47 creatinine 1.97. Blood sugars running between 129 and 204. We have changed long acting insulin to 35 units twice daily and continue NovoLog 7 units every 6 hours and scale every 6 hours. Nephrology may be decreasing frequency of dialysis treatments. Anticipate probable discharge to long-term care next week. 10/28: Patient was complaining of nausea today which has resolved. CPAP trial will continue today. She is currently on mechanical ventilation with a tidal volume 375, FiO2 of 50, PEEP of 8. She is afebrile, heart rate 108 which continues to show improvement. Blood pressure 133/87, pulse ox 99%. Patient is able to follow commands. And answers appropriately with nodding her head. WBC 10.5, hemoglobin 8.0, potassium 4.6, BUN 46, creatinine 1.96. Patient is currently receiving hemodialysis. 10/29: Patient was found sitting up in bed. Able to answer some questions appropriately. Utilizing kim. Able to follow commands. [place] over elevated blood sugars. Levemir 35 units twice a day will continue at this with a 7 unit coverage. Patient remains afebrile. Heart rate 102, respirations 29, blood pressure 124/74, pulse ox 97% on mechanical ventilation. Mechanical ventilation settings with a tidal volume 375, FiO2 of 50 and a PEEP of 8. Family has been into see patient. Hemodialysis will be held today. 10/30: Patient remains in the ICU on mechanical ventilation. She is not requiring pressure support. She is on CPAP support. She is receiving hemodialysis this morning with plan to start a Friday schedule this week. Blood sugars are stable and running between 140 and 184. She is on tube feedings at goal and having bowel movements every 12 hours. Repeat blood work reveals WBC 8.9, hemoglobin 10.2, platelet count 258. Sodium 133, p otassium 5.0, chloride 97, CO2 23, BUN 69 creatinine 2.67. 10/31: Patient is seen today in intensive care unit. She remains on mechanical ventilation with tidal volume 375, FiO2 45 of PEEP of 5. Patient is found sitting in a chair working with physical therapy. Patient is noted to have left arm weakness without pain and good sensation. She is not receiving dialysis today and will be started on Friday regime. Patient's heart rate is better controlled in the 80s, blood pressure 113/65, pulse ox 99%. Patient is been afebrile. Patient has been on cefepime. Repeat blood work reveals WBC 9.3, hemoglobin 6.9 and patient is transfused 1 unit of packed RBCs today. Platelet count 248. Electrolytes are within normal range, BUN 38 and creatinine 2.04. Her blood glucose running between 130 and 193. AST 38. Social work is working with the daughter regarding discharge planning. 11/01: A she was undergoing dialysis with plan for 3 L removed today and dialysis is scheduled Friday. She is in bed and appears to be comfortable. She is able to talk and express herself and is cognitively intact. She remains on mechanical ventilation. She has been afebrile, heart rate 107, blood pressure 115/85, pulse ox 99%. Repeat blood work reveals WBC 8.5, hemoglobin 7.5, platelet count 278. Sodium 136, potassium 4.8, chloride 100, CO2 27, BUN 55 creatinine 2.81. Blood sugar running between 114 and 185. Calcium 10.3, total bilirubin 0.2, AST 34, ALT 34, alkaline phosphatase 144. Social work is working on [facility] or [facility]. 11/02: Patient remains in the intensive care unit on mechanical ventilation with tidal volume 375, FiO2 40, PEEP of 5. Patient's mental status continues to be improved. She has been afebrile, heart rate 97, blood pressure 144/86, pulse ox 98%. Repeat blood work reveals WBC 8.3, hemoglobin 7.2, platelet count 255. Sodium 135, potassium 4.5, chloride 98, CO2 20, BUN 42 and creatinine 2.36. Blood sugars are running between 124 278. She is scheduled for hemodialysis tomorrow with plan for 4 L to be removed. Social work is working on discharge plan and once patient has been accepted and insurance authorization is obtained if needed, patient will be discharged. 11/03: Patient remains in intensive care unit on mechanical ventilation patient is currently on pressure support of 15, CPAP of 5 and FiO2 of 40%. A trach collar is to be attempted today in order to get the patient discharged to remote computer terminal operator care facility. Land is for medical [facility] on Friday if patient continues to improve. He has been afebrile, heart rate in the 80s, blood pressure 90/57, pulse ox 100%. Repeat blood work reveals WBC 7.5, hemoglobin 6.9, platelet count 255. Sodium 133, potassium 5.1, chloride 97, CO2 27, BUN 59 creatinine 3. Blood sugars up and running 117 164. 11/04 patient remains in ICU, this is day number 55, pulmonary is following closely, they have recommended fenestrated trach, for which Dr. warren is going to perform, patient is anticipated to be discharged to long-term care facility, most likely early next week. She is stable, with no new fevers, antibiotics has been completed, blood sugars are stable, hemoglobin 7.7, WBC 8.5, blood sugars running between 145-150, creatinine of 2.34 11/05: Patient remains in ICU, trach collar replaced by Dr. Zhang this a.m., patient's communicating with handwritten communication mentions that she has back pain, on IV Dilaudid still, we'll replace Burns 7.5, also cannot sleep, muscle relaxants started with cyclobenzaprine, where finalizing discharge planning, to subacute rehab long-term care no fever no chills, coughing a lot, with mucus production, suctioning on the trach when necessary by nursing staff, 11/06: Patient is still having refractory sleep, wakes up with chills and sweats, also. Alternating hot and cold, iron is suspected to be low, hemoglobin of 7.2, check for iron studies, on Ativan and aspirin, start melatonin 6 mg at bedtime, might need Zestril, however is on Seroquel. We'll going to increase Seroquel to 75 mg blood sugars are stable, no change in program today, pain control is better, using Burns 7.5. 11/07: Patient remains in the intensive care unit on trach collar at FiO2 of 35%, flow rate of 8. Patient states that she slept better last evening. We will add in consult for speech therapy to evaluate if patient can start on oral food. She is currently on tube feedings at goal. Repeat blood work reveals WBC 7.9, hemoglobin 8.0, platelet count 238. Sodium 130, potassium 3.9, chloride 93, CO2 28, BUN 48 creatinine 2.84. Capillary blood glucose running between 75 and 129. Iron 22, TIBC 244, iron saturation 9.0 to. Total bilirubin 0.1, AST is 26, ALT 27, alkaline phosphatase 115. TSH 1.7. 11/08: Social work is trying to determine discharge plan. Currently looking at inpatient rehab facilities. Patient has been seen by speech therapy and approved for oral intake and she is having her first meal today. She is undergoing hemodialysis today. She's been afebrile, heart rate 88, blood pressure 155/96, pulse ox 94% on trach collar 35% FiO2. Blood sugars are running in the 70s and 80s. Patient is working with therapies. 11/09: Patient is off tube feedings completely and taking all oral nutrition. Dr. See stopped the scheduled Levemir is now blood sugars are on the low side. Patient states she is sleeping well. Seroquel has been completely discontinued. She has been afebrile, heart rate 96, blood pressure 124/78, pulse ox 96% on trach earlier at 35 FiO2. Repeat blood work reveals sodium 138, potassium 3.8, chloride 106, CO2 26, BUN 25 and creatinine 2.26. Blood sugars running between 48 and 125. weld lay out worker is trying to make placement for the patient for rehab. 11/10: Patient has been resumed on tube feedings due to low oral intake. She is receiving dialysis this morning and is nauseated and does not feel well. She has been downgraded to move to the [facility] floor. Midline has been ordered and PICC line discontinued. A consult has been placed with Dr. Walker for evaluation of inpatient rehab. Noted he has documented limited endurance and would not be able to participate in the full inpatient rehab program. Patient has been afebrile, heart rate 95, blood pressure 154/82. Pulse ox 88% on trach collar. Repeat blood work reveals sodium 134, potassium 4.2, chloride 103, CO2 22, BUN 13 creatinine 2.94. Blood sugars are running between 101 125. 11/11: Patient is sitting up in bed in no acute distress. Exercise has been given for patient to be transition to full inpatient rehab program. Patient remains afebrile, heart rate 116, blood pressure 160/109, respirations 22, pulse ox is 90% with movement on a trach collar. FiO2 60. Patient able to answer questions appropriately. Tolerating diet. Hydralazine ordered for elevated blood pressure. REVIEW OF SYSTEMS Constitutional: No fever, no chills, no night sweats. No weight change. Profound weakness, + significant fatigue no lethargy. Reported daytime sleepiness. EENT: No headache. No loss of vision. No loss of Hearing. No nasal drainage or congestion. No epistaxis. No sore throat. Lungs: No shortness of breath, cough, no sputum production. No wheezing. Cardiovascular: No chest pain, no lower extremity edema. No palpitations. No paroxysmal nocturnal dyspnea. No orthopnea. No lightheadedness or dizziness. No syncopal episodes. Abdominal: No abdominal pain. Reports nausea, vomiting. No diarrhea. No constipation. No bloody or tarry stools. No loss of appetite. Genitourinary: No dysuria, increased frequency, urgency. No urinary retention. Minimal urine production Musculoskeletal: No myalgias. Noted muscle weakness, noted gait dysfunction, no frequent falls. No back pain. No neck pain. Integumentary: Positive wound-decubitus ulcer, trach wound. No rash or prurit us. No unusual bruising. No change in hair or nails. Neurologic: No aphasia. No facial droop. Noted change in mentation-back to baseline. No head injury. No headache. No paralysis. No paresthesia. Psychiatric: suspected depression. positive anxiety. Endocrine: Noted abnormal blood sugars-stable and monitored. PHYSICAL EXAMINATION Gen: This is is a 35-year-old black female, sitting in ICU bed. Patient is receiving hemodialysis. HEENT: Head is atraumatic, normocephalic. Pupils equal, round. Sclerae is anicteric. Tracheostomy midline. NECK: Supple. No JVD. No lymphadenopathy. No thyromegaly. LUNGS: Lung sounds are clear to auscultation. No intercostal retractions. HEART: Regular rate and rhythm. No murmur. potline monitor sinus tachycardia. ABDOMEN: Soft. Bowel sounds are present. No masses. No tenderness. EXTREMITIES: Trace bilateral pedal edema. No calf tenderness. NEUROLOGICAL: Patient is awake, alert, oriented x3 and able to follow commands, significant weakness. ASSESSMENT AND PLAN 1. Acute hypoxic respiratory failure secondary to Covid 19 pneumonia and possible bacterial pneumonia. Patient was intubated on September 11. She is status post 1 dose of Remdesivir and 1 dose of Tocilizumab. Continue Ventolin inhaler 4 times daily, Lovenox 30 mg subcu daily, supplements. Status post PEG tube and trach. Completed antibiotics. 2. Acute diabetic ketoacidosis secondary to Covid 19 pneumonia, uncontrolled with hyperglycemia. Levemir discontinued, continue scheduled NovoLog 7 units every 6 hours and continue NovoLog scale every 6 hours. 3. Metabolic encephalopathy secondary to Covid 19 and DKA. 4. Sepsis and septic shock secondary to Covid 19 pneumonia with multiorgan failure. Continue as in #1. 5. Acute metabolic acidosis secondary to acute DKA, Covid 19 and acute kidney injury. Renvela 1600 mg q6h. 6. Diabetes mellitus type 2 uncontrolled with A1c 13.6. Continue as above. 7. Hypophosphatemia status post replacement. 8. Hyperkalemia secondary to DKA, resolved. 9. Sinus tachycardia secondary to sepsis, volume deficiency. Patient is on Cardizem 60 mg 3 times daily, and Lopressor 50 mg twice daily. 10. Acute kidney injury secondary to ATN secondary to Covid 19 and DKA. Continue hemodialysis on Friday. 11. Citrobacter pneumonia versus MRSA pneumonia. Completed course of antibiotics. 12. Hypertension. 13. Morbid obesity with BMI of 53. 14. Situational depression and anxiety. Seroquel discontinued, continue Lexapro 10 mg daily and Xanax 0.25 mg twice daily as needed. 15. DVT prophylaxis. Lovenox. 16. GI prophylaxis. Protonix 40 mg IV push daily. 17. Stage IV pressure ulcer to trach site. Currently utilizing absorptive silver dressing. 18. Stage II decubitus ulcer to coccyx. 19. Critical illness polyneuropathy and myopathy. Continue physical therapy. 20. Anemia of chronic disease. Transfuse total of 3 units of packed RBCs, continue Aranesp 40 g every 7 days. CODE STATUS: Full code Prognosis guarded. DISCHARGE PLAN [facility] next week Impression and plan of care have been directed as dictated by the signing physician. Rika Edouard nurse practitioner acting as scribe for signing physician. Objective - Vital Signs Vital signs: Vital Signs Temp 98.6 F 11/11/20 08:00 Pulse 116 H 11/11/20 08:00 Resp 22 11/11/20 08:00 BP 160/109 11/11/20 08:00 Pulse Ox 89 L 11/11/20 08:00 Intake & Output 11/10/20 11/11/20 11/11/20 18:59 06:59 18:59 Intake Total 402 166 Output Total 2600 Balance -2198 166 Weight 98.3 kg Intake: Tube Feeding 102 136 Hemodialysis 300 Other 30 Output: Urine 300 Hemodialysis 2300 Other: Voiding Method Bedpan Bedpan ABP, PAP, CO, CI - Last Documented Arterial Blood Pressure 136/76 - Labs CBC & Chem 7: 11/11/20 04:06 11/11/20 04:06 Labs: Abnormal Lab Results - Last 24 Hours (Table) 11/09/20 11/09/20 11/10/20 Range/Units 05:24 05:24 16:59 RBC (3.80-5.40) m/uL Hgb (11.4-16.0) gm/dL Hct (34.0-46.0) % RDW (11.5-15.5) % Eosinophils # (0-0.7) k/uL Sodium (137-145) mmol/L Chloride (98-107) mmol/L BUN (7-17) mg/dL Creatinine (0.52-1.04) mg/dL Glucose (74-99) mg/dL POC Glucose (mg/dL) 162 H (75-99) mg/dL Albumin (PEP) 2.78 L (3.80-4.90) g/dL Ldarr-4-Qnnrdypxo 0.57 H (0.10-0.40) g/dL Ieift-8-Qbbbnntjw 1.01 H (0.60-1.00) g/dL Gamma Globulins 0.55 L (0.70-1.50) g/dL Vit D 1,25-Dihydroxy 12 L (20 - 79) pg/mL 11/10/20 11/11/20 11/11/20 Range/Units 21:19 04:06 04:06 RBC 2.76 L (3.80-5.40) m/uL Hgb 7.7 L (11.4-16.0) gm/dL Hct 24.4 L (34.0-46.0) % RDW 17.0 H (11.5-15.5) % Eosinophils # 1.1 H (0-0.7) k/uL Sodium 132 L (137-145) mmol/L Chloride 96 L (98-107) mmol/L BUN 21 H (7-17) mg/dL Creatinine 2.28 H (0.52-1.04) mg/dL Glucose 187 H (74-99) mg/dL POC Glucose (mg/dL) 127 H (75-99) mg/dL Albumin (PEP) (3.80-4.90) g/dL Yefvp-2-Oqaqzucmr (0.10-0.40) g/dL Kdjtd-2-Frmclztep (0.60-1.00) g/dL Gamma Globulins (0.70-1.50) g/dL Vit D 1,25-Dihydroxy (20 - 79) pg/mL 11/11/20 11/11/20 Range/Units 06:38 11:23 RBC (3.80-5.40) m/uL Hgb (11.4-16.0) gm/dL Hct (34.0-46.0) % RDW (11.5-15.5) % Eosinophils # (0-0.7) k/uL Sodium (137-145) mmol/L Chloride (98-107) mmol/L BUN (7-17) mg/dL Creatinine (0.52-1.04) mg/dL Glucose (74-99) mg/dL POC Glucose (mg/dL) 192 H 175 H (75-99) mg/dL Albumin (PEP) (3.80-4.90) g/dL Ytkkh-3-Mzfjkjucj (0.10-0.40) g/dL Fjkug-3-Otigeovyo (0.60-1.00) g/dL Gamma Globulins (0.70-1.50) g/dL Vit D 1,25-Dihydroxy (20 - 79) pg/mL Assessment and Plan (1) Non-pressure chronic ulcer of skin of other sites with fat layer exposed Current Visit: Yes Status: Acute Code(s): L98.492 - NON-PRS CHRONIC ULCER OF SKIN OF SITES W FAT LAYER EXPOSED SNOMED Code(s): 72687857 (2) Diabetes with skin ulcer Current Visit: Yes Status: Acute Code(s): E11.622 - TYPE 2 DIABETES MELLITUS WITH OTHER SKIN ULCER; L98.499 - NON-PRESSURE CHRONIC ULCER OF SKIN OF SITES W UNSP SEVERITY SNOMED Code(s): 96093643
--- NOTE | 2020-11-11 11:57 | XR ---
EXAMINATION TYPE: XR chest 1V portable DATE OF EXAM: 11/11/2020 COMPARISON: Chest x-ray 11/06/2020 HISTORY: Hypoxemia TECHNIQUE: Single frontal view of the chest is obtained. FINDINGS: Interstitium is increased. Patchy airspace disease present bilaterally. Tracheostomy tube and central venous catheter are stable. Heart remains enlarged. No evident pneumothorax or pleural ef fusion. IMPRESSION: Correlate for congestive heart failure, volume overload, pulmonary edema, pneumonia not excluded
[2020-11-11] MEDS: hydrALAZINE HCL 25 MG TAB PO SCH ×3 (11:58→22:30)
[2020-11-11 16:38] LABS: Glucose,Whole Blood 167 mg/dL (75-99)
[2020-11-11 22:27] LABS: Glucose,Whole Blood 173 mg/dL (75-99)
[2020-11-11] MEDS: CYCLOBENZAPRINE 10 MG TAB PO SCH (22:28)
[2020-11-12] MEDS: SEVELAMER 800 MG TAB PO SCH ×5 (00:35→23:13)
[2020-11-12] MEDS: PANTOPRAZOLE 40 MG TABLET PO SCH (06:35)
[2020-11-12] MEDS: INSULIN ASPART (NovoLOG) 100 UNIT/ML VIAL SQ SCH ×8 (07:10→21:14)
[2020-11-12 07:20] LABS: Glucose,Whole Blood 168 mg/dL (75-99)
[2020-11-12] MEDS: METOPROLOL TARTRATE 50 MG TAB PO SCH ×2 (08:20→21:09)
[2020-11-12] MEDS: hydrALAZINE HCL 25 MG TAB PO SCH ×3 (08:20→21:09)
[2020-11-12] MEDS: DILTIAZEM ORAL 60 MG TAB PO SCH ×3 (08:20→21:09)
[2020-11-12] MEDS: ENOXAPARIN 30 MG/0.3 ML SYRINGE SQ SCH (08:20)
[2020-11-12] MEDS: SENNOSIDES 8.6 MG TAB PO SCH ×2 (08:20→21:09)
[2020-11-12] MEDS: ASCORBIC ACID 500 MG TAB PO SCH ×2 (08:20→21:09)
[2020-11-12] MEDS: ESCITALOPRAM 10 MG TAB PO SCH (08:21)
[2020-11-12] MEDS: HYDROPHILIC CREAM 180 GM TUBE TOPICAL SCH (08:21)
[2020-11-12] MEDS: NYSTATIN 100,000 UNIT/GM POWD 15 GM TOPICAL SCH ×3 (08:21→21:09)
[2020-11-12] MEDS ORDERED: LACTULOSE 20 GM/30 ML CUP PO PRN (08:46)
[2020-11-12] MEDS: ALPRAZolam 0.25 MG TAB PO PRN (08:58)
--- NOTE | 2020-11-12 09:12 | P.PN ---
Subjective Progress Note Date: 11/12/20 03/15/2021 the patient is an 80% trach collar. Chest x-ray from yesterday showed forced COVID-19 ARDS related to chronic scarring and fibrosis. The patient's pulse ox is 99% and FiO2 can be gradually weaned off. Noted the patient was given a trach button yesterday and she was able to tolerate 40s ab out 2 by nasal cannula. She is having issues with constipation. She was given Senokot and lactulose yesterday. She did have some limited bowel movement activity. Otherwise, she is taking oral intake. Enterofeeding is also running at 34 mL an hour. The plan was to gradually advance her oral intake and taken off the enteral nutrition. In terms of hemodialysis, she did not receive any treatment yesterday and we are holding off dialysis for today. Her urine output is once today and she just voided this morning. Her creatinine today is at 2.2. Her white cell count 5.9 with a hemoglobin of 7.7. Her sodium level is at 132. Her having issues with her blood pressure. She is on a combination of metoprolol and Cardizem. She was also started on hydralazine yesterday. Objective - Vital Signs Vital signs: Vital Signs Temp 98.6 F 11/11/20 20:00 Pulse 112 H 11/12/20 02:00 Resp 13 11/12/20 02:00 BP 151/91 11/12/20 02:00 Pulse Ox 92 L 11/12/20 02:00 Intake & Output 11/11/20 11/12/20 11/12/20 18:59 06:59 18:59 Intake Total 736 408 Balance 736 408 Intake: Oral 340 Tube Feeding 306 408 Other 90 Other: Voiding Method Bedpan ABP, PAP, CO, CI - Last Documented Arterial Blood Pressure 136/76 - Exam GENERAL EXAM: Sedated, 35-year-old female patient, is awake and alert and oriented currently on a 80% trach collar, sitting up in her bed and she is quite comfortable not having any respiratory distress. HEAD: Normocephalic/atraumatic. EYES: Normal reaction of pupils, equal size. Conjunctiva pink, sclera white. NOSE: Clear with pink turbinates. THROAT: No erythema or exudates. NECK: Right SC hemodialysis catheter placed. Tracheostomy tube secured in place. The patient has shiley #6 . No masses, no JVD, no thyroid enlargement, no adenopathy. CHEST: No chest wall deformity. Symmetrical expansion. LUNGS: Equal air entry with bilateral crackles CVS: Regular rate and rhythm, normal S1 and S2, no gallops, no murmurs, no rubs ABDOMEN: PEG tube exit site clean and dry. No hepatosplenomegaly, normal bowel sounds, no guarding or rigidity. EXTREMITIES: No clubbing, no edema, no cyanosis, 2+ pulses and upper and lower extremities. MUSCULOSKELETAL: Muscle strength and tone normal. SPINE: No scoliosis or deformity SKIN: No rashes CENTRAL NERVOUS SYSTEM:Global motor weakness in all 4 extremities, otherwise there is no focal neurological deficit. - Labs CBC & Chem 7: 11/11/20 04:06 11/11/20 04:06 Labs: Abnormal Lab Results - Last 24 Hours (Table) 11/11/20 11/11/20 11/11/20 Range/Units 11:23 16:36 22:25 POC Glucose (mg/dL) 175 H 167 H 173 H (75-99) mg/dL 11/12/20 Range/Units 07:07 POC Glucose (mg/dL) 168 H (75-99) mg/dL Assessment and Plan Plan: 1 Acute hypoxic respiratory failure secondary to COVID-19 pneumonia/ARDS, transferred to the intensive care unit on 09/11/2020 and intubated and placed on mechanical ventilator on 09/11/2020. Patient received 1 dose of Remdesivir on 09/11/2020, however based on her quick progression of her hypoxic respiratory failure she received Tocilizumab 800 mg on 09/11/2020. Tracheostomy and PEG tube placed on 09/18/2020. Patient was successfully weaned from the ventilator support, she status post tracheostomy and PEG tube insertion, currently on 11/11/2020 patient is to 80% trach collar no significant respiratory secretions. The patient to yesterday that showed no major progression. 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 The patient was able to tolerate capping the tracheostomy stoma along with 4 L of oxygen by nasal cannula. 2 Acinetobacter baumannii infection of the trach site. Completed a course of cefepime, Currently off antibiotics 3 Acute kidney injury related to ATN, patient currently is dialysis dependent. Her last dialysis session was 48hr ago with a total of 2 L of ultrafiltration was performed, and the patient is having possible urine output. 4 diabetes mellitus, insulin-dependent and the patient is currently on insulin sliding scale coverage with NovoLog, and the patient is currently receiving NovoLog every before meals and at bedtime in addition to 7U every QAC and at bedtime 5 obesity with a BMI is down to 43 6 Hypertension 7 Corneal injury, punctate keratitis, left eye, improved 8 Anemia of chronic disease, requiring transfusions of packed red blood cells, hemoglobin is 7.8 9 Generalized anxiety disorder. 10 hypertriglyceridemia, due to propofol 11 leukocytosis, resolved 13 encephalopathy/delirium , improved and resolved 14 History of hypertension Plan We'll start the patient on hydralazine 75 mg 3 times a day for tighter blood control. Continue metoprolol and Cardizem for now. Continue the rest of the supportive care. Continue the NovoLog insulin Aggressive physical therapy Dialysis per nephrology, on hold for today Continue laxatives May The tracheostomy stoma utilize nasal cannula We are looking for inpatient rehabilitation. Advance oral diet and should be able to get this patient off the enteral nutrition once she meets her caloric requirements.
--- NOTE | 2020-11-12 09:21 | P.PN ---
Subjective Patient is seen in follow-up for acute kidney injury. Oliguric. Status post tracheostomy and PEG tube placement this admission. Receiving tube feeding. Off vent. No changes overnight. Awaiting placement. No problems with dialysis. Complains of constipation today. Vital signs: Stable. General: The patient appeared well nourished and normally developed. HEENT: Tracheostomy noted. LUNGS: Breath sounds decreased. HEART: Regular rate and rhythm. Abdomen: Soft, no distention. EXTREMITITES: Trace edema. Objective - Vital Signs Vital signs: Vital Signs Temp 98.6 F 11/11/20 20:00 Pulse 112 H 11/12/20 02:00 Resp 13 11/12/20 02:00 BP 151/91 11/12/20 02:00 Pulse Ox 92 L 11/12/20 02:00 Intake & Output 11/11/20 11/12/20 11/12/20 18:59 06:59 18:59 Intake Total 736 408 Balance 736 408 Intake: Oral 340 Tube Feeding 306 408 Other 90 Other: Voiding Method Bedpan ABP, PAP, CO, CI - Last Documented Arterial Blood Pressure 136/76 - Labs CBC & Chem 7: 11/11/20 04:06 11/11/20 04:06 Labs: Abnormal Lab Results - Last 24 Hours (Table) 11/11/20 11/11/20 11/11/20 Range/Units 11:23 16:36 22:25 POC Glucose (mg/dL) 175 H 167 H 173 H (75-99) mg/dL 11/12/20 Range/Units 07:07 POC Glucose (mg/dL) 168 H (75-99) mg/dL Assessment and Plan Plan: Assessment: 1. Acute kidney injury secondary to ATN secondary to COVID-19 and DKA. Baseline creatinine is near 1. Started on hemodialysis on September 14. Has p-cath. Oliguric. No hydronephrosis noted on kidney ultrasound. 2. DKA s/p insulin drip and IV fluids. 3. Acute hypoxic respiratory failure secondary to COVID-[address] tracheostomy this admission. 4. Metabolic acidosis secondary to acute kidney injury and DKA s/p bicarb drip. Improved postdialysis. 5. Hyponatremia secondary to acute kidney injury. Stable. 6. Hyperphosphatemia secondary to acute kidney injury. Maintained on Renvela. 7. Anemia of chronic illness and kidney disease. Maintained on Aranesp. Iron deficiency noted - s/p iv iron. Status post blood transfusion this admission. 8. Fluid overload. Improved with ultrafiltration. 9. Hypercalcemia. Patient was on daily vitamin D supplementation which has been discontinued. PTH is appropriately suppressed. Vitamin D level 27.1. 1,25 D3 level 12. RUY level elevated - pulm following. Serum immunofixation revealed kappa paraprotein in the early gamma region - consider heme/onc eval. Calcium level normal as of yesterday. Plan: Hemodialysis Friday Maintain tube feeds. Avoid nephrotoxins. Continue to monitor renal function and urine output. Monitor for renal recovery. Awaits placement to ECF.
--- NOTE | 2020-11-12 11:01 | P.PN ---
Subjective Progress Note Date: 11/12/20 35-year-old female patient of Dr. Arroyo with past medical history of type 2 diabetes comes in with acute shortness of breath associated with high light sugars. Patient on admission was found to have a fever of 101.5 pulse rate 125 respiratory rate 20. Blood pressure 132/106. On chest x-ray obtained in the ER suggestive of bilateral infiltrates concerning for call with pneumonia. COVID PCR was positive. On admissions patient had an ABG with a pH of 7.14 pCO2 of 20, pO2 of 59, bicarb of 7. Patient's blood sugar on admission was 424 on assessment today patient's blood work patient had a sodium 135 potassium 5.4 chloride 123 bicarb less than 5 and creatinine 0.73. D-dimer was elevated on admission patient 9 28 patient given 1 L of IV fluids followed by normal saline running at 200 mL/h. Patient was positive for acetone on admission. She will anion gap closed and was switched to D5NS. Insulin drip was continued during the night and was switched to patient's home medication this morning. One dose of remdesiver was ordered. Apparently around noon, A- team was called on the patient secondary to hypoxia patient's oxygen saturation dropped to the 70s and 80s on 100% nonrebreather. Patient was switched to BiPAP on 18/12 and is doing better o FiO2 of 80%. ABG was obtained and ph was 7. 14 pCO2 of 28 bicarb of 7 pO2 of 17. Patient noted to have uncompensated metabolic acidosis with compensated respiratory alkalosis. Stat dose of 1 amp bicarb was given and followed by sodium bicarbonate drip. Insulin drip restarted. Patient's initiated on dexamethasone 6 mg IV twice a da y. Potassium phosphate ordered as phosphorus is low. Patient's repeat blood gases suggest a pH of 7.25, CO2 32 pO2 of 72 bicarb 14. I will not normal saline at 100 mL/h as patient's anion gap has increased. Patient given 1 dose of 2 mg of morphine with improvement in respiratory rate. One dose of Ativan 0.5 mg was given. Xanax 0.25 twice a day along with Ativan 0.5 IV every 6 hours ordered for the patient. Vitals were evaluated patient pulse 129 [id number]. She was moved to the ICU. Precedex drip was initiated. Lopressor was initiated at 25 twice a day. Metoprolol tartrate 5 mg IV every 6 hours. Systolic blood pressure more than 160. Started chest x-ray was obtained and suggest stable bilateral consolidation suggestive of COVID-19 pneumonia. 09/12 patient is seen in the ICU is currently mechanically ventilated and sedated on vent settings of respiratory rate 36, tidal volume 375 FiO2 80% PEEP of 18.. Vital signs reviewed patient had a temp of 100.4 pulse 150 respiratory rate 36 oxygen saturation 95% on 80% on fio2 .'s labs are reviewed which patient had a d-dimer 1.84 that is increased to 14.3. Arterial Blood gas suggest ph 7.35, CO2 40, po2 62, . Her BMP suggest a sodium 135 potassium 3.7 chloride 112 bicarb 21 creatinine 1.57 for calcitonin is 3.5 CRP is increased from 8.78.2 LDH is increased to 2614. Patient remains on Pneumovax, propofol drip. Lovenox increased to 50 subcu twice a day. Patient received 2 L of IV fluids. Continue IV fluids at 100 mL/h. Bicarb drip discontinued patient initiated on Zosyn 3.375 every 8 hours. Continue insulin drip at 4 units per hour. Patient is currently in prone positioning 09/13: Patient evaluated in the ICU remains on Ventilation continues to be sedated, in prone position. Vent settings are respiratory rate 36, tidal vital 375, FiO2 70% PEEP of 18. ABG shows pO2 of 82, PCO2 of 39, pH is 7.19. Latest labs show WBC 11.1, hemoglobin 13.2, d-dimer still pending, but yesterday was up to 14.3. Creatinine up to 3.4, BUN 24 sodium 137, potassium 4.0. Patient's urine output has been low, nephrology on consult. Bicarb drip increased to 100 miles an hour, receiving another liter of normal saline, she did have a ultrasound that showed unremarkable bilateral kidneys. Repeat chest x-ray showed bilateral lung infiltrates that are stable. Anion gap has closed, will start Lantus 10 units at at bedtime Novolog every 6 hours. 09/14: Patient is seen in the ICU, still currently mechanically ventilated and sedated. She continues in the prone position. Her oxygen quickly drops if she is not in prone. Patient's kidney function has worsened. Laboratory values show creatinine of 4.87, BUN 33, LDH 2191, C-reactive protein 2.7. ABG shows pH 7.32, pO2 of 60, pCO2 43. Patient is making almost no urine overnight. Nephrology is following patient continues on cefepime for urinary tract infection, culture is still pending. Vascular has been consulted for placement of temporary hemodialysis catheter for plans for dialysis. 09/15: Patient evaluated in the ICU, continues to be mechanically ventilated and sedated on assist control ventilation rate of 36, tidal volume 375, FiO2 100% and PEEP of 18. ABG today shows pO2 58, pCO2 of 45, and pH 7.35. She continues on tube feedings. Yesterday patient underwent ultrasound-guided right internal jugular non-tunneled hemodialysis catheter placement. Patient underwent hemodialysis treatment last night and plans have another hemodialysis treatment today. She continues to make almost no urine. She continues on cefepime for antibiotic coverage, and continues on Decadron and Lovenox. 09/16: Patient seen on follow-up remains in the ICU mechanically ventilated and sedated. She continues on assist control rate of 36, tidal volume 375, FiO2 100 % and PEEP of 20. PEEP had to be increased due to patient had to be in supine position for dialysis, will go back to prone position once dialysis is complete. ABG shows pH 7.32, pCO2 49, PaO2 61. Laboratory values showed WBC 11.2, hemoglobin 11, sodium 134, creatinine 4.44, BUN 38. Urine culture shows no growth, blood cultures show no growth to date. Repeat chest x-ray shows bilateral pleural effusions, correlate for ARDS, pulmonary edema, diffuse pneumonia, findings are stable from last exam. Patient does not require any pressors, blood pressure 133/57, heart rate 78. 5/16: Patient was evaluated in the ICU today for follow-up. She continues to be intubated and on mechanical ventilation. Current vent settings are tidal volume 375, FiO2 100% and PEEP of 20. ABG shows pH 7.37, pCO2 40, pO2 102. She continues with intermittent prone positioning. Patient continues to have almost no urine output, maintained on dialysis. Patient received dialysis yesterday without complication. Laboratory values revealed WBC 10.3, hemoglobin 10.4, sodium 132, potassium 3.1, BUN 33, creatinine 4.29, LDH 1913, C-reactive protein 1.3. Urine and sputum cultures are negative, blood cultures show no growth to date. Consult placed to dietary to start TPN[ ] 09/18: She remains in the intensive care unit intubated and on mechanical ventilation with tidal volume 375, FiO2 60 and PEEP of 20. Patient is being prone to daily at approximately 16 hours per day. Pulmonary medicine has added in Dr. Zhang to do PEG tube and trach today. Patient is not on vasopressors. Repeat blood work reveals WBC 12.6, hemoglobin 9.8, platelet count 212. Sodium 133, potassium 3.2, chloride 102, CO2 21, BUN 35 and creatinine 4.12. Blood sugar 126. Patient underwent hemodialysis yesterday with removal of 2 L and is scheduled again today with goal of 2-3 L and is scheduled again tomorrow. 09/19: She is scheduled for hemodialysis today and is off fentanyl temporarily. Patient is status post trach and PEG tube yesterday. And she remains on mechanical ventilation. Pulse ox 93-95%. She has been afebrile, heart rate 64, respiratory rate 36, blood pressure 115/50. Fentanyl is off to improve blood pressure for hemodialysis which is scheduled for today. Contacted vascular surgery about permanent hemodialysis catheter. Repeat blood work reveals WBC 14.3, hemoglobin 9.6, platelet count 200. D-dimer 6.48. LDH 1686. C-reactive protein 1.1. BUN 34 creatinine 3.81. Sodium 130, potassium 3.5, chloride 101, CO2 18. Blood sugars running between 101 198. Plan is to wean off Pneumovax today. Patient remains on insulin drip. Repeat chest x-ray reveals bilateral multifocal confluent opacities consistent with COVID-19. Some improved aeration periphery of the left lung and worsening opacities throughout the right lung. 09/20: She remains in the intensive care unit on mechanical ventilation. She has been afebrile, heart rate 65, respiratory rate 37, blood pressure 121/70, pulse ox 91-99%. Repeat blood work reveals WBC 14.5, hemoglobin 9.1, platelet count 216. D-dimer 6.13. Sodium 133, potassium 3.1, chloride 102, CO2 18, BUN 35 and creatinine 4.27. Blood sugars running between 128 and 143. LDH 1717. C- reactive protein 1.7. Patient remains on insulin drip which will be transiti oned to NovoLog scale every 6 hours. Patient is scheduled for permanent hemodialysis catheter placement today with vascular surgery. Repeat chest x-ray reveals stable diffuse bilateral interstitial and airspace disease. Possible small right effusion. His work is following for transfer to ground operations supervisor care facility. Do not anticipate discharge until next week. 09/21: Patient is undergoing hemodialysis. She remains on mechanical ventilation with tidal volume 375, FiO2 down to 45 and PEEP was decreased to 15. Patient is continued on propofol, fentanyl drips. She is on tube feedings at goal. Patient was taken off insulin drip yesterday and on scale only but blood sugars are running in the 200s, Levemir scheduled at bedtime will be added. Other blood work reveals WBC 13.3, hemoglobin 8.7, platelet count 192. Sodium 137, potassium 3.6, chloride 107, CO2 18, BUN 34 and creatinine 4.21. Repeat chest x-ray is stable. 09/22: She remains in the intensive care on mechanical ventilation with tidal volume 375, FiO2 of 50 and PEEP of 10. Pulse ox is running 96%. She is afebrile, heart rate in the 50s, respiratory rate 36, blood pressure 100/64. Repeat blood work reveals WBC 16.5, hemoglobin 8.9, platelet count 213. Sodium 134, potassium 3.7, chloride 103, CO2 21, BUN 34 and creatinine 3.89. Blood sugars running in the 200s to 324. Levemir increased to 16 units at bedtime and continue NovoLog scale every 6 hours. Patient is on tube feedings at goal. She has a Haley catheter in with a scant amount of dark/brown urine. Fecal management system is in place. Repeat chest x-ray reveals diffuse bilateral airspace infiltrates persist unchanged. Patient is scheduled for hemodialysis tomorrow morning on Friday. 09/23: Patient remains on mechanical ventilation with tidal volume 3.75, FiO2 50 and PEEP of 10. monitor technician sinus rhythm. She has no urine output. Fecal management system is in place. She is undergoing dialysis at this time with plan for removal of 2-1/2 L. She has been afebrile, heart rate in the 50s, respiratory rate 36, blood pressure 108/76 and pulse ox 89%. WBC 13.6, hemoglobin 9.1, platelet count 194. Sodium 136, potassium 3.0 and was replaced, chloride 106, CO2 21, BUN 49 creatinine 5.31. Blood sugars are running between 182 and this morning 194. Patient was still in the 200s and 300s. Levemir last evening was increased to 16 units. Patient remains on propofol and fentanyl drips. Lovenox was increased to 60 mg twice daily. 09/24: PEEP was increased today to 20, tidal volume is at 375 and FiO2 of 50%. Patient has been afebrile. She has been started on levo fed. Repeat chest x- ray reveals bilateral multifocal confluent opacities consistent with Covid 19 or ARDS redemonstrated. Nephrology will plan dialysis for tomorrow for 3 L. Patient remains on propofol fentanyl and Nimbex. WBC 12.5, hemoglobin 9.8, platelet count 161. D-dimer 13.3. Sodium 132, potassium 3.4, chloride 102, CO2 20, BUN 48 and creatinine 4.67. Blood sugars extremely elevated to 96-409. LDH 2217. 09/25: Patient remains in the intensive care unit on mechanical ventilation with tidal volume 375, FiO2 50 and PEEP of 20. Patient is afebrile, heart rate 61, respiratory rate 36, blood pressure 102/56, pulse ox 97%. Repeat blood work reveals WBC 9.3, hemoglobin 8.5 and platelet count 171. Sodium 130, potassium 3.7, chloride 100, CO2 20, BUN 61 creatinine 5.65. Blood sugars have been elevated up to 455. Levemir increased to 20 units twice daily, NovoLog 5 units every 6 hours and continue NovoLog scale. Patient is scheduled for hemodialysis today. Repeat chest x-ray reveals bilateral multifocal and confluent opacities. Decadron and Lovenox dosing change by pulmonary. Patient is off norepinephrine. 09/26: Patient remains in the intensive care unit on mechanical ventilation with tidal volume 375, FiO2 50 and PEEP of 15. She has been afebrile, heart rate 91, blood pressure 114/68, pulse ox 99%. monitor technician sinus rhythm. 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 Sodium 134, potassium 3.6, chloride 102, CO2 22, BUN 41 creatinine 4.21. Patient has improved blood sugars this morning running 150s and 160s. Diabetic medications were adjusted yesterday. Patient is awake and alert and interacting. Yesterday, patient had PICC line inserted by interventional radiology. Repeat chest x-ray reveals diffuse airspace infiltrates in both lung ann appear to progress slightly in the interval. 09/27: Patient remains in intensive care unit on mechanical ventilation with improvement of settings with tidal volume 375, FiO2 decreased to 40 and PEEP decreased to 10. Patient is on hemodialysis every other day and plan to remove 3 L today. Patient is more awake and alert. She is slow to respond but is able to follow simple commands. Blood sugars are running between 84 and 123. Repeat blood work reveals WBC 7.1, hemoglobin 8.1, platelets 152. Sodium 135, potassium 3.6, chloride 103, CO2 21, BUN 53 and creatinine 5.88. Repeat chest x-ray revealed cardiomegaly and pulmonary edema. Patient is on tube feedings:. Patient is not require vasopressors and is off sedation. Fecal management system remains in place for brown liquid stool. C. difficile was negative. 09/28: Patient remains on mechanical ventilation with tidal volume 375, FiO2 increased to 80 and PEEP increased to 18. Patient had a rough night was very anxious, no pain. Xanax 0.25 mg 3 times daily was added. There is concern for pulmonary embolism for which patient was started on heparin drip, she is unable to undergo CAT scan. Venous Doppler bilateral lower extremities was nondiagnostic due to extensive edema in obese patient but minimal imaging of the popliteal veins does show flow. Repeat echocardiogram has been ordered. Cefepime has also been ordered at 1 g IV piggyback every 24 hours as well as vancomycin, pharmacy dosing. Patient is back on fentanyl drip, propofol drip and norepinephrine. Blood sugars are elevated and insulin Levemir will be increased to 25 mg twice daily. Ferrlecit infusion has been ordered by nephrology for 4 days. Patient is undergoing hemodialysis today.temperature max 100.2, heart rate 134, respiratory rate 34, blood pressure 120/65, pulse ox 94%. monitor technician is sinus tachycardia. Repeat blood work reveals WBC 16.9, hemoglobin 9.7, platelet count 216. D-dimer 8.81. Sodium 134, potassium 3.8, chloride 99, CO2 25, BUN 43 and creatinine 5.36. Blood sugars in the 200s. AST 40. 09/29 Patient had declined more last 48 hours require more sedation, patient is doing hemodialysis, respiratory failure is quite bit worse this time. Patient was inquired the pain is well back on fentanyl drip. Her vent set up with PEEP is limited but higher. No new finding on culture and her chest x-ray continues shows diffuse infiltrate persistent although there is a moderate interval improvement. 09/30 patient's was seen and evaluated. PEEP was reduced to 11 as patient is maintaining good saturation at the current vent settings. 10/01 patient was seen at bedside. She is currently on assist control rate of 28 white tidal volume 350 FiO2 50% and PEEP of 10 which has been reduced by pulmonary as patient name cleaning her oxygen saturation. Arm blood gas was obtained with a pH of 7.35 pCO2 37 pO2 of 63. She remains hemodynamically stable with no need for pressors. Labs were reviewed patient's BUN is 29 creatinine 3.93 glucose 122 albumin 2.2 sodium 131 chloride 19 hemoglobin is downtrending with a Hb of 7.3 no leukocytosis 7.1. Patient's urine output is mi nimal at this time. Her rate has increased to 129 and is currently on positive fluid balance even with dialysis. Last dialysis was done yesterday. Continue enteral feeding currently at goal. Antibiotic has been discontinued and continues to remain on DEXA methicillin 4 mg IV daily. 10/02 patient continues to be on trach support with mechanical ventilation. Patient was evaluated by filler blender and was switched to VC control as patient was noted to be double stacking on and off throughout the night. Respiratory rate continue to 28 tidal volume increased to 400 with a PEEP for Dr. Downey. Dariana woodward is maintaining oxygen saturation 91% on the current setting. According to the nurse bedside patient saturation drops significantly or she is moved or her sedation is dropped. Patient is currently on propofol drip, fentanyl drip. She did underwent dialysis today and was able to maintain her low pressure without the need of pressors. Labs reviewed today suggest a WBC of 6.7 hemoglobin of 7. 0 and d-dimer 3.9 bicarb 17 BUN 38 creatinine 4.8. LDH is 964. Sodium 1:30 likely secondary to volume overload. Urine sodium and urine osmolality ordered. Patient's glucose this morning is 146. Continue to remain on enteral feeding. Urine output is reduced. Fall catheter will be placed today. Continue to remain on dialysis. 10/03: Patient remains on mechanical ventilation and is back on propofol and fentanyl drips. Patient is currently on VC control with tidal volume 400, FiO2 55 and PEEP of 12. Patient still is not making any urine and is dialysis dependent with next treatment planned for tomorrow with removal of 3-3-1/2 L. PEG tube feedings are at goal. Fecal management system remains in place. At the time of evaluation, patient is off levophed. Repeat chest x-ray reveals st able diffuse bilateral airspace disease correlate for ARDS, pulmonary edema or diffuse pneumonia. Temperature max last evening was 101. Temperature currently 99, heart rate 106, respiratory rate 32, blood pressure 101/50, pulse ox 86%. Repeat blood work reveals WBC 6, hemoglobin 7.4, platelet count 160. D-dimer 4.05. Sodium 133, potassium 3.5, chloride 100, CO2 23, BUN 31 creatinine 3.8. Blood sugars are running between 100 and 170. Ferritin 1514. Liver function test normal. LDH 1016, C-reactive protein 13.6. Prognosis remains guarded. 10/04: Patient remains intubated on mechanical ventilation with tidal volume 400, FiO2 65, PEEP of 14. Patient continues to run fevers and repeat blood culture and urine and urine culture ordered for today. Haley catheter has been removed this patient has no significant urine output at about 20 mL per shift. BladderScan is monitored for greater than 300 and the patient is straight cathed. Hemoglobin is 6.8 and she has been ordered 41 unit of packed RBCs today. She is currently on propofol and fentanyl drips. She is scheduled for hemodialysis today. WBC 4.5, hemoglobin 6.8, platelet count 151. D-dimer 3.28. Sodium 132, potassium 4.1, chloride 100, CO2 22, BUN 37 creatinine 4.74. Blood sugars running between 97 and 110. Ferritin 1801. LDH 859. C-reactive protein 14.4. Chest x-ray reveals correlate for pneumonia, edema, ARDS. Prognosis remains guarded. 10/05: Patient remains in intensive care unit currently on mechanical ventilation with tidal volume 400, FiO2 was increased to 100 and PEEP is at 14. She continues to run fevers which have worsened with temperature max 103.1. She has been tachycardic in the 130s, blood pressure is marginal but not on vasopressors. Pulse ox currently 92%. Repeat blood work reveals WBC 5.5, hemoglobin 7.6, platelet count 190. D-dimer 2.7, ferritin 1770, LDH 932, C- reactive protein 21.4. Blood sugars are running between 100 1669. Electrolytes are normal. BUN 27 and creatinine 3.79. Pancultures were done yesterday including a straight cath for urine culture, sputum culture and blood culture. Arterial line was removed as well as midline. She is currently on propofol, fentanyl and started on Nimbex today. 10/06: Patient remains in the intensive care unit. Today patient in prone position and remains on mechanical ventilation with tidal volume 350, FiO2 65 and PEEP of 14. Her last documented fever was yesterday at 2 PM. Heart rate is in the 120s, respiratory rate 32, pulse ox 88-92%. CBC is unremarkable. Electrolytes are normal. BUN 30 creatinine 2.93. Blood sugars are running between 135 and 164. Cultures from October 04: Blood culture no growth, sputum culture finalized, urine culture finalized. Catheter tip culture is in process. Repeat chest x-ray shows bilateral interstitial infiltrates. Patient is on tube feedings of Nepro at goal of 30 ML's per hour. Patient underwent dialysis yesterday and is scheduled for repeat dialysis today. 10/07: Patient maintains in the intensive care unit intubated and on mechanical ventilation. She is receiving hemodialysis this morning has been every day. Plan is to remove 2-1/2 L today. Vent settings have changed today with tidal volume 350, FiO2 was increased to 100% and PEEP remains at 14. She has been continued on Nimbex, fentanyl, norepinephrine and propofol. Plan is to prone position patient following dialysis. Repeat chest x-ray reveals worsening interstitial infiltrates. BUN is 26 and creatinine 2.59. LDH 955, C-reactive protein 22.1. Prognosis remains poor. 10/08: Patient remains in intensive care unit intubated and on mechanical ventilation with tidal volume 350, FiO2 60, PEEP of 14. She is pronating today. She is scheduled for hemodialysis on a daily basis. She has been afebrile, heart rate 112, respiratory rate 36, blood pressure 161/88, pulse ox 93%. Rep eat blood work reveals WBC 9.9, hemoglobin 9.1, platelet count 320. Sodium 133, potassium 5.3, chloride 100, CO2 20, BUN 29 creatinine 2.44. Blood sugar running between 102 and 139. LDH 1026, C-reactive protein 19.7. 10/09: Patient is undergoing dialysis this morning. She continues to be intubated and on mechanical ventilation with tidal volume 350, 270 and PEEP of 14. Patient is also on propofol, Nimbex, norepinephrine and fentanyl drips. Repeat chest x-ray reveals persistent bilateral multifocal and confluent opacities consistent with Covid 19. She is afebrile, heart rate 116, respiratory rate 36, blood pressure 120/65, pulse ox 91%. Repeat blood work reveals WBC 5.4, hemoglobin 9.2, platelet count 216. D-dimer 2.67, ferritin 2568, LDH 794, C- reactive protein 13.9. Blood sugars have been running 90-104. Creatinine 1.64. She is on daily dialysis treatment. 10/10: She remains in the intensive care unit. She is now out of isolation as a repeat Covid test came back negative. She remains on mechanical ventilation with tidal volume 350, FiO2 70 and PEEP of 14. Patient is also on Nimbex, propofol, norepinephrine, fentanyl drips. She is on PEG tube feedings at goal and tolerating well. Repeat blood work reveals WBC 7.8, hemoglobin 7.5, platelet count 267. Sodium 139, potassium 3.9, chloride 109, CO2 20, BUN 20 creatinine 1.29. Blood sugars are running between 76 and 102. Scheduled NovoLog decreased to 3 units. Repeat chest x-ray reveals moderate cardiomegaly and continued pulmonary edema. Slight interval improvement. Patient is jing nued on daily hemodialysis. 10/11: Patient remains in intensive care unit on mechanical ventilation with tidal volume 325, FiO2 70, PEEP 14. She is currently being prone. She underwent hemodialysis this morning with removal of 4 L of fluid with plan to continue daily treatment. She is currently on Nimbex, fentanyl and propofol. No vasopressor at this time. Fecal management system remains in place. She is on tube feedings currently at hold due to prone positioning. Patient has been afebrile, heart rate 116, respiratory rate 36, blood pressure 100/58, pulse ox 93-96%. Repeat blood work reveals WBC 9.3, hemoglobin 8.1, platelet count 276. Sodium 136, potassium 4.3, chloride 103, CO2 20, BUN 20 creatinine 1.14. Blood sugars running between 133 and 202. 10/12: Patient remains in the intensive care unit. She is undergoing hemodialysis this morning. She's been afebrile, heart rate in the 120s, respiratory rate 32, blood pressure 102/65. She is not on vasopressors. She is continued on Nimbex, fentanyl and propofol. Vent settings are currently tidal volume 325, FiO2 70, PEEP 14. Total platelet count 273. Sodium 133, potassium 4.7, chloride 100, CO2 19, BUN 21 creatinine 0.91. Blood sugars running between 121 and 143. 10/13: Patient remain in the ICU she is on hemodialysis daily, she is still on the vent with a PEEP of 14 and FiO2 of 70. Her oxygenation is marginal pulse rate still high. Patient had scratched cornea was seen in ophthalmology decided to keep doing eyedrops along with eye patch at this point. Prognosis still very bad this point. 10/14: She remains on mechanical ventilation with tidal volume 325, FiO2 70% and PEEP of 14. She did require label fed last evening for about 6 hours. She did not tolerate pronating yesterday. She is undergoing dialysis this morning with plan for removal of 4 L. Blood sugars have been low and IV fluids changed to D1 0 until blood sugars have recovered. Levemir and scheduled NovoLog discontinued. Patient is on tube feedings at goal there's been no change in this. 10/15 patient remains on mechanical ventilation in the intensive care unit. FiO2 still at 70%, PEEP of 18. Blood sugars have improved since medications were adjusted. White blood cells 33.9, hemoglobin 8.5, sodium 135, BUN 19, creatinine 0.96. Patient to receive dialysis again today. Patient did run a low-grade fever throughout the night and pro calcitonin level is ordered. Chest x-ray showed continued diffuse bilateral airspace disease. Patient remains on tube feedings at goal. 10/16: Patient remains on mechanical ventilation with tidal volume 300, FiO2 70, PEEP of 15. Fecal management system is out. She is currently on low dose of norepinephrine. She is also on fentanyl drip, propofol drip, rocuronium drip. Heart rate is running in the 130s, sinus rhythm, blood pressure 121/63, pulse ox 95%. Patient is been afebrile. Repeat blood work reveals WBC 18.9, hemoglobin 7.5, platelet count 291. Sodium 135, potassium 4.2, chloride 101, CO2 19, BUN 25 and creatinine 1.36. Blood sugars are running between 143 and 199. Patient is on scale insulin only. Repeat chest x-ray reveals persistent bilateral multifocal and completed opacities consistent with Covid 19. 10/17: Patient remains on mechanical ventilation with tidal volume 300, FiO2 50, PEEP of 14. She is currently receiving hemodialysis. The patient is having yellow-colored drainage from the trach site. This is going to be culture today. Repeat blood work reveals WBC of 24, hemoglobin 7.3 and platelet count 310. Sodium 136, potassium 4.1, chloride 101, CO2 19, BUN 24 creatinine 1.43. Blood sugar 139. Capillary blood glucose running 147 and 189. Repeat chest x-ray is unchanged. Patient had increased respiratory rate 40s and 50s with oxygen saturation of 87 and now was increased and Seroquel added this morning. Prognosis remains guarded. 10/18: Patient remains on mechanical ventilation with tidal volume 300, FiO2 60, PEEP has been decreased to 12. Patient will need a PEEP of 8 in order to transfer to long-term care. She is currently on fentanyl drip and Precedex drip. Patient is tracking when her name is stated. She seems to be slightly im proved today. Patient has been afebrile, heart rate 106, respiratory rate 32, blood pressure 110/61, pulse ox 98%. Repeat blood work reveals WBC 30.3, hemoglobin 7.2, platelet count 350. Sodium 139, potassium 4.2, chloride 103, CO2 20, BUN 23 creatinine 1.79. Blood sugars are increasing running up 299. Patient will be placed on Levemir. Secretions from tracheotomy sent for culture and in process. She is currently undergoing hemodialysis. 10/23: Patient remains in the intensive care unit on mechanical ventilation with tidal volume 300, FiO2 65 and PEEP of 10. monitor technician has been in a sinus rhythm. Patient does open her eyes and appears to be tracking. Blood sugars have been elevated. Levemir will be increased to 40 units daily and scheduled NovoLog increased to 12 units and continue NovoLog every 6 hours per scale. Patient is receiving hemodialysis today. She is not currently on vasopressors. Patient is on Precedex drip only. Antibiotics in the form of cefepime were started on October 18. Patient has been afebrile, heart rate 126, respiratory rate 36, blood pressure 163/105. Pulse ox 91%. Repeat blood work reveals WBC 16.0, hemoglobin 7.2, platelet count 208. Electrolytes are within normal limits. BUN 62 and creatinine 2.43. Blood sugars running between 259-321. Most recent blood culture from October 22 is no growth at 24 hours. Repeat chest x-ray reveals cardiomegaly and persistent bilateral pulmonary edema. 10/24: Patient is awake, eyes are open and tracking, she is able to follow simple commands. Severe generalized weakness noted. Precedex gtt has been discontinued. Patient is receiving hemodialysis. Her blood sugars have remained elevated for which Levemir increased to 25 units twice daily along with 15 units of NovoLog every 6 hours along with scale. Tidal volume 330, FiO2 60, PEEP of 8. vaccine manager and certified social workers in health care following closely. Anticipate possible discharge by the end of next week to long-term care facility. 10/25: Patient remains in the intensive care unit on mechanical ventilation. Tidal volume 350, FiO2 60, PEEP 8. She is receiving hemodialysis this morning. Her heart rate remains elevated in the 130s. Pulmonary as started her on Cardizem at 60 mg 3 times daily which has not had any improved effect. We'll start the patient on Lopressor 25 mg twice daily. Patient has been afebrile, heart rate respiratory rate 32, blood pressure 151/91, pulse ox 98%. Patient is been transfuse 1 unit of packed RBCs today. Patient's mental status is improving and patient is able to follow simple commands. WBC 12.2, hemoglobin 6.3, platelet count 196. Sodium 135 otherwise looked lites are normal, BUN 48 creatinine 1.99. Blood sugars are running between 120 and 172. Levemir has been increased to 30 mg twice daily continue 15 units of NovoLog every 6 hours with scale. 10/26: Patient remains in intensive care unit, on mechanical ventilation with tidal volume 375, FiO2 50, PEEP of 8. Patient's heart rate remains elevated 120s and Lopressor increased to 50 mg twice daily. Patient seems to be quite anxious and depressed. We will decrease Seroquel to 50 mg twice daily and start patient on Lexapro. Patient received her first dose of Xanax this morning but this did not seem to help heart rate either. She has been afebrile, heart rate 128, blood pressure 149/79, pulse ox 93%. Repeat hemoglobin 7.3. Sodium 135, potassium 3.9, chloride 90, CO2 30, BUN 45 and creatinine 1.94. Blood sugar are improved running between 117-194. We will make further adjustments to insulin and to increase long-acting to 35 units twice daily and decrease NovoLog scheduled to 7 units and continue NovoLog scale. There are problems with patient's trach and consequently placed with [facility]. General surgery to reevaluate trach. 10/27: Patient is complaining of nausea today. Concerned that this is related to Lexapro. We will further decrease Seroquel to 50 mg at bedtime. Patient is being bladder scanned and last bladder scan wasn't 125 mL. She does not have Haley catheter. No fecal management system. She is having a bowel movement about 3 per day. Plan is for CPAP trial today. She is currently on mechanical ventilation with tidal volume 375, FiO2 50 and PEEP of 8. She has been afebrile, heart rate 105 which is much improved from the last few days. Blood pressure 145/88, pulse ox 94%. There is a new consult in place for Dr. Clemente regarding exchanging the trach and possible debridement at site. WBC 11.4, hemoglobin 8.2, blood count 218. Sodium 136, potassium 4.1, chloride 97, CO2 31, BUN 47 creatinine 1.97. Blood sugars running between 129 and 204. We have changed long acting insulin to 35 units twice daily and continue NovoLog 7 units every 6 hours and scale every 6 hours. Nephrology may be decreasing frequency of dialysis treatments. Anticipate probable discharge to long-term care next week. 10/28: Patient was complaining of nausea today which has resolved. CPAP trial will continue today. She is currently on mechanical ventilation with a tidal volume 375, FiO2 of 50, PEEP of 8. She is afebrile, heart rate 108 which continues to show improvement. Blood pressure 133/87, pulse ox 99%. Patient is able to follow commands. And answers appropriately with nodding her head. WBC 10.5, hemoglobin 8.0, potassium 4.6, BUN 46, creatinine 1.96. Patient is currently receiving hemodialysis. 10/29: Patient was found sitting up in bed. Able to answer some questions appropriately. Utilizing kim. Able to follow commands. Warren over elevated blood sugars. Levemir 35 units twice a day will continue at this with a 7 unit coverage. Patient remains afebrile. Heart rate 102, respirations 29, blood pressure 124/74, pulse ox 97% on mechanical ventilation. Mechanical ventilation settings with a tidal volume 375, FiO2 of 50 and a PEEP of 8. Family has been into see patient. Hemodialysis will be held today. 10/30: Patient remains in the ICU on mechanical ventilation. She is not requiring pressure support. She is on CPAP support. She is receiving hemodialysis this morning with plan to start a Friday schedule this week. Blood sugars are stable and running between 140 and 184. She is on tube feedings at goal and having bowel movements every 12 hours. Repeat blood work reveals WBC 8.9, hemoglobin 10.2, platelet count 258. Sodium 133, p otassium 5.0, chloride 97, CO2 23, BUN 69 creatinine 2.67. 10/31: Patient is seen today in intensive care unit. She remains on mechanical ventilation with tidal volume 375, FiO2 45 of PEEP of 5. Patient is found sitting in a chair working with physical therapy. Patient is noted to have left arm weakness without pain and good sensation. She is not receiving dialysis today and will be started on Friday regime. Patient's heart rate is better controlled in the 80s, blood pressure 113/65, pulse ox 99%. Patient is been afebrile. Patient has been on cefepime. Repeat blood work reveals WBC 9.3, hemoglobin 6.9 and patient is transfused 1 unit of packed RBCs today. Platelet count 248. Electrolytes are within normal range, BUN 38 and creatinine 2.04. Her blood glucose running between 130 and 193. AST 38. Social work is working with the daughter regarding discharge planning. 11/01: A she was undergoing dialysis with plan for 3 L removed today and dialysis is scheduled Friday. She is in bed and appears to be comfortable. She is able to talk and express herself and is cognitively intact. She remains on mechanical ventilation. She has been afebrile, heart rate 107, blood pressure 115/85, pulse ox 99%. Repeat blood work reveals WBC 8.5, hemoglobin 7.5, platelet count 278. Sodium 136, potassium 4.8, chloride 100, CO2 27, BUN 55 creatinine 2.81. Blood sugar running between 114 and 185. Calcium 10.3, total bilirubin 0.2, AST 34, ALT 34, alkaline phosphatase 144. Social work is working on [facility]. 11/02: Patient remains in the intensive care unit on mechanical ventilation with tidal volume 375, FiO2 40, PEEP of 5. Patient's mental status continues to be improved. She has been afebrile, heart rate 97, blood pressure 144/86, pulse ox 98%. Repeat blood work reveals WBC 8.3, hemoglobin 7.2, platelet count 255. Sodium 135, potassium 4.5, chloride 98, CO2 20, BUN 42 and creatinine 2.36. Blood sugars are running between 124 278. She is scheduled for hemodialysis tomorrow with plan for 4 L to be removed. Social work is working on discharge plan and once patient has been accepted and insurance authorization is obtained if needed, patient will be discharged. 11/03: Patient remains in intensive care unit on mechanical ventilation patient is currently on pressure support of 15, CPAP of 5 and FiO2 of 40%. A trach collar is to be attempted today in order to get the patient discharged to ground operations supervisor care facility. Land is for medical [place] on Friday if patient continues to improve. He has been afebrile, heart rate in the 80s, blood pressure 90/57, pulse ox 100%. Repeat blood work reveals WBC 7.5, hemoglobin 6.9, platelet count 255. Sodium 133, potassium 5.1, chloride 97, CO2 27, BUN 59 creatinine 3. Blood sugars up and running 117 164. 11/04 patient remains in ICU, this is day number 55, pulmonary is following closely, they have recommended fenestrated trach, for which Dr. warren is going to perform, patient is anticipated to be discharged to long-term care facility, most likely early next week. She is stable, with no new fevers, antibiotics has been completed, blood sugars are stable, hemoglobin 7.7, WBC 8.5, blood sugars running between 145-150, creatinine of 2.34 11/05: Patient remains in ICU, trach collar replaced by Dr. Zhang this a.m., patient's communicating with handwritten communication mentions that she has back pain, on IV Dilaudid still, we'll replace Marienthal 7.5, also cannot sleep, muscle relaxants started with cyclobenzaprine, where finalizing discharge planning, to subacute rehab long-term care no fever no chills, coughing a lot, with mucus production, suctioning on the trach when necessary by nursing staff, 11/06: Patient is still having refractory sleep, wakes up with chills and sweats, also. Alternating hot and cold, iron is suspected to be low, hemoglobin of 7.2, check for iron studies, on Ativan and aspirin, start melatonin 6 mg at bedtime, might need Zestril, however is on Seroquel. We'll going to increase Seroquel to 75 mg blood sugars are stable, no change in program today, pain control is better, using Marienthal 7.5. 11/07: Patient remains in the intensive care unit on trach collar at FiO2 of 35%, flow rate of 8. Patient states that she slept better last evening. We will add in consult for speech therapy to evaluate if patient can start on oral food. She is currently on tube feedings at goal. Repeat blood work reveals WBC 7.9, hemoglobin 8.0, platelet count 238. Sodium 130, potassium 3.9, chloride 93, CO2 28, BUN 48 creatinine 2.84. Capillary blood glucose running between 75 and 129. Iron 22, TIBC 244, iron saturation 9.0 to. Total bilirubin 0.1, AST is 26, ALT 27, alkaline phosphatase 115. TSH 1.7. 11/08: Social work is trying to determine discharge plan. Currently looking at inpatient rehab facilities. Patient has been seen by speech therapy and approved for oral intake and she is having her first meal today. She is undergoing hemodialysis today. She's been afebrile, heart rate 88, blood pressure 155/96, pulse ox 94% on trach collar 35% FiO2. Blood sugars are running in the 70s and 80s. Patient is working with therapies. 11/09: Patient is off tube feedings completely and taking all oral nutrition. Dr. See stopped the scheduled Levemir is now blood sugars are on the low side. Patient states she is sleeping well. Seroquel has been completely discontinued. She has been afebrile, heart rate 96, blood pressure 124/78, pulse ox 96% on trach earlier at 35 FiO2. Repeat blood work reveals sodium 138, potassium 3.8, chloride 106, CO2 26, BUN 25 and creatinine 2.26. Blood sugars running between 48 and 125. ecclesiastical worker is trying to make placement for the patient for rehab. 11/10: Patient has been resumed on tube feedings due to low oral intake. She is receiving dialysis this morning and is nauseated and does not feel well. She has been downgraded to move to the [facility] floor. Midline has been ordered and PICC line discontinued. A consult has been placed with Dr. Walker for evaluation of inpatient rehab. Noted he has documented limited endurance and would not be able to participate in the full inpatient rehab program. Patient has been afebrile, heart rate 95, blood pressure 154/82. Pulse ox 88% on trach collar. Repeat blood work reveals sodium 134, potassium 4.2, chloride 103, CO2 22, BUN 13 creatinine 2.94. Blood sugars are running between 101 125. 11/11: Patient is sitting up in bed in no acute distress. Exercise has been given for patient to be transition to full inpatient rehab program. Patient remains afebrile, heart rate 116, blood pressure 160/109, respirations 22, pulse ox is 90% with movement on a trach collar. FiO2 60. Patient able to answer questions appropriately. Tolerating diet. Hydralazine ordered for elevated blood pressure. 11/12: Sitting in bed in no acute distress. She is experiencing some episodes of constipation. And difficulty sleeping at night. He remained afebrile, blood pressure 151/91 heart rate 112, pulse oximetry 92% on trach collar. Patient continues with a exercise program to support transition to a full inpatient rehab program. REVIEW OF SYSTEMS Constitutional: No fever, no chills, no night sweats. No weight change. Profound weakness, + significant fatigue no lethargy. Reported daytime sleepiness. EENT: No headache. No loss of vision. No loss of Hearing. No nasal drainage or congestion. No epistaxis. No sore throat. Lungs: No shortness of breath, cough, no sputum production. No wheezing. Cardiovascular: No chest pain, no lower extremity edema. No palpitations. No paroxysmal nocturnal dyspnea. No orthopnea. No lightheadedness or dizziness. No syncopal episodes. Abdominal: No abdominal pain. Reports nausea, vomiting. No diarrhea. No constipation. No bloody or tarry stools. No loss of appetite. Genitourinary: No dysuria, increased frequency, urgency. No urinary retention. Minimal urine production Musculoskeletal: No myalgias. Noted muscle weakness, noted gait dysfunction, no frequent falls. No back pain. No neck pain. Integumentary: Positive wound-decubitus ulcer, trach wound. No rash or pruritus. No unusual bruising. No change in hair or nails. Neurologic: No aphasia. No facial droop. Noted change in mentation-back to baseline. No head injury. No headache. No paralysis. No paresthesia. Psychiatric: suspected depression. positive anxiety. Endocrine: Noted abnormal blood sugars-stable and monitored. PHYSICAL EXAMINATION Gen: This is is a 35-year-old black female, sitting in ICU bed. Patient is receiving hemodialysis. HEENT: Head is atraumatic, normocephalic. Pupils equal, round. Sclerae is anicteric. Tracheostomy midline. NECK: Supple. No JVD. No lymphadenopathy. No thyromegaly. LUNGS: Lung sounds are clear to auscultation. No intercostal retractions. HEART: Regular rate and rhythm. No murmur. monitor technician sinus tachycardia. ABDOMEN: Soft. Bowel sounds are present. No masses. No tenderness. EXTREMITIES: Trace bilateral pedal edema. No calf tenderness. NEUROLOGICAL: Patient is awake, alert, oriented x3 and able to follow commands, significant weakness. ASSESSMENT AND PLAN 1. Acute hypoxic respiratory failure secondary to Covid 19 pneumonia and possible bacterial pneumonia. Patient was intubated on September 11. She is status post 1 dose of Remdesivir and 1 dose of Tocilizumab. Continue Ventolin inhaler 4 times daily, Lovenox 30 mg subcu daily, supplements. Status post PEG tube and trach. Completed antibiotics. 2. Acute diabetic ketoacidosis secondary to Covid 19 pneumonia, uncontrolled with hyperglycemia. Levemir discontinued, continue scheduled NovoLog 7 units every 6 hours and continue NovoLog scale every 6 hours. 3. Metabolic encephalopathy secondary to Covid 19 and DKA. 4. Sepsis and septic shock secondary to Covid 19 pneumonia with multiorgan failure. Continue as in #1. 5. Acute metabolic acidosis secondary to acute DKA, Covid 19 and acute kidney injury. Renvela 1600 mg q6h. 6. Diabetes mellitus type 2 uncontrolled with A1c 13.6. Continue as above. 7. Hypophosphatemia status post replacement. 8. Hyperkalemia secondary to DKA, resolved. 9. Sinus tachycardia secondary to sepsis, volume deficiency. Patient is on Cardizem 60 mg 3 times daily, and Lopressor 50 mg twice daily. 10. Acute kidney injury secondary to ATN secondary to Covid 19 and DKA. Continue hemodialysis on Friday. 11. Citrobacter pneumonia versus MRSA pneumonia. Completed course of antibiotics. 12. Hypertension. 13. Morbid obesity with BMI of 53. 14. Situational depression and anxiety. Seroquel discontinued, continue L exapro 10 mg daily and Xanax 0.25 mg twice daily as needed. 15. DVT prophylaxis. Lovenox. 16. GI prophylaxis. Protonix 40 mg IV push daily. 17. Stage IV pressure ulcer to trach site. Currently utilizing absorptive silver dressing. 18. Stage II decubitus ulcer to coccyx. 19. Critical illness polyneuropathy and myopathy. Continue physical therapy. 20. Anemia of chronic disease. Transfuse total of 3 units of packed RBCs, continue Aranesp 40 g every 7 days. CODE STATUS: Full code Prognosis guarded. DISCHARGE PLAN [facility] next week Impression and plan of care have been directed as dictated by the signing physician. Rika Edouard nurse practitioner acting as scribe for signing physician. Objective - Vital Signs Vital signs: Vital Signs Temp 98.6 F 11/11/20 20:00 Pulse 112 H 11/12/20 02:00 Resp 13 11/12/20 02:00 BP 151/91 11/12/20 02:00 Pulse Ox 92 L 11/12/20 02:00 Intake & Output 11/11/20 11/12/20 11/12/20 18:59 06:59 18:59 Intake Total 736 408 Balance 736 408 Intake: Oral 340 Tube Feeding 306 408 Other 90 Other: Voiding Method Bedpan ABP, PAP, CO, CI - Last Documented Arterial Blood Pressure 136/76 - Labs CBC & Chem 7: 11/11/20 04:06 11/11/20 04:06 Labs: Abnormal Lab Results - Last 24 Hours (Table) 11/11/20 11/11/20 11/11/20 Range/Units 11:23 16:36 22:25 POC Glucose (mg/dL) 175 H 167 H 173 H (75-99) mg/dL 11/12/20 Range/Units 07:07 POC Glucose (mg/dL) 168 H (75-99) mg/dL Assessment and Plan (1) Non-pressure chronic ulcer of skin of other sites with fat layer exposed Current Visit: Yes Status: Acute Code(s): L98.492 - NON-PRS CHRONIC ULCER OF SKIN OF SITES W FAT LAYER EXPOSED SNOMED Code(s): 85771856 (2) Diabetes with skin ulcer Current Visit: Yes Status: Acute Code(s): E11.622 - TYPE 2 DIABETES MELLITUS WITH OTHER SKIN ULCER; L98.499 - NON-PRESSURE CHRONIC ULCER OF SKIN OF SITES W UNSP SEVERITY SNOMED Code(s): 57339691
[2020-11-12 11:23] LABS: Glucose,Whole Blood 176 mg/dL (75-99)
[2020-11-12 16:35] LABS: Glucose,Whole Blood 146 mg/dL (75-99)
[2020-11-12] MEDS ORDERED: GLYCERIN ADULT SUPPOSITORY 1 EACH RECTAL STA (20:58)
[2020-11-12] MEDS: CYCLOBENZAPRINE 10 MG TAB PO SCH (21:09)
[2020-11-12 21:12] LABS: Glucose,Whole Blood 113 mg/dL (75-99)
[2020-11-13] MEDS: ZOLPIDEM 5 MG TAB PO PRN (00:15)
[2020-11-13] MEDS: ONDANSETRON 4 MG/2 ML VIAL IVP PRN (03:10)
[2020-11-13] MEDS: HYDROcodone/APAP 7.5-325MG 1 EACH TAB PO PRN ×3 (03:15→22:53)
[2020-11-13] MEDS: diphenhydrAMINE 50 MG/ML 1 ML VIAL IVP PRN (03:15)
[2020-11-13 03:42] LABS: Anisocytosis Slight; Basophils % (A) 0 %; Eosinophils # (A) 1.4 k/uL (0-0.7); Eosinophils % (A) 12 %; HCT 27.4 % (34.0-46.0); HGB 8.6 gm/dL (11.4-16.0); Hypochromasia Marked; Lymphocytes # (A) 1.2 k/uL (1.0-4.8); Lymphocytes % (A) 10 %; MCH 27.5 pg (25.0-35.0); MCHC 31.3 g/dL (31.0-37.0); MCV 87.7 fL (80.0-100.0); Mean Platelet Volume 7.9; Monocytes # (A) 0.6 k/uL (0-1.0); Monocytes % (A) 5 %; Neutrophils # (A) 7.9 k/uL (1.3-7.7); Neutrophils % (A) 70 %; Platelet Count 246 k/uL (150-450); Poikilocytosis Slight; RBC 3.12 m/uL (3.80-5.40); RDW 17.1 % (11.5-15.5); WBC 11.4 k/uL (3.8-10.6)
[2020-11-13 04:16] LABS: Calcium 10.3 mg/dL (8.4-10.2); Potassium 3.5 mmol/L (3.5-5.1)
[2020-11-13 06:57] LABS: Glucose,Whole Blood 160 mg/dL (75-99)
[2020-11-13] MEDS: SEVELAMER 800 MG TAB PO SCH ×4 (06:58→22:52)
[2020-11-13] MEDS: INSULIN ASPART (NovoLOG) 100 UNIT/ML VIAL SQ SCH ×8 (06:58→22:53)
[2020-11-13] MEDS: PANTOPRAZOLE 40 MG TABLET PO SCH (06:59)
[2020-11-13] MEDS: ENOXAPARIN 30 MG/0.3 ML SYRINGE SQ SCH (10:39)
[2020-11-13] MEDS: DILTIAZEM ORAL 60 MG TAB PO SCH ×3 (10:39→22:52)
[2020-11-13] MEDS: ESCITALOPRAM 10 MG TAB PO SCH (10:40)
[2020-11-13] MEDS: ASCORBIC ACID 500 MG TAB PO SCH ×2 (10:40→22:00)
[2020-11-13] MEDS: SENNOSIDES 8.6 MG TAB PO SCH ×2 (10:40→22:00)
[2020-11-13] MEDS: hydrALAZINE HCL 25 MG TAB PO SCH (10:40)
[2020-11-13] MEDS: METOPROLOL TARTRATE 50 MG TAB PO SCH ×2 (10:40→22:00)
[2020-11-13] MEDS: HYDROPHILIC CREAM 180 GM TUBE TOPICAL SCH (10:41)
[2020-11-13] MEDS: NYSTATIN 100,000 UNIT/GM POWD 15 GM TOPICAL SCH ×3 (10:41→22:54)
[2020-11-13 11:54] LABS: Glucose,Whole Blood 162 mg/dL (75-99)
--- NOTE | 2020-11-13 13:43 | P.PN ---
Subjective Progress Note Date: 11/13/20 Principal diagnosis: Acute hypoxic respiratory failure secondary to COVID-19 pneumonia and ARDS secondary to COVID-19 pneumonia 03/15/2021 the patient is an 80% trach collar. Chest x-ray from yesterday showed forced COVID-19 ARDS related to chronic scarring and fibrosis. The p atient's pulse ox is 99% and FiO2 can be gradually weaned off. Noted the patient was given a trach button yesterday and she was able to tolerate 40s about 2 by nasal cannula. She is having issues with constipation. She was given Senokot and lactulose yesterday. She did have some limited bowel movement activity. Otherwise, she is taking oral intake. Enterofeeding is also running at 34 mL an hour. The plan was to gradually advance her oral intake and taken off the enteral nutrition. In terms of hemodialysis, she did not receive any treatment yesterday and we are holding off dialysis for today. Her urine output is once today and she just voided this morning. Her creatinine today is at 2.2. Her white cell count 5.9 with a hemoglobin of 7.7. Her sodium level is at 132. Her having issues with her blood pressure. She is on a combination of metoprolol and Cardizem. She was also started on hydralazine yesterday. Patient was reevaluated today on 11/13/2020, patient remains in the ICU, she is on 40% trach collar, patient is not receiving any IV fluids. Intermittent capping of the trach has been done. Patient is still undergoing physical therapy. Continues to have poor appetite and she is being fed via PEG tube. She is on Nepro 34/54 mL per hour. Overall the patient is doing well, but she remained generally weak, it is improving steadily. Remains on hemodialysis 3 ti mes per week. Her CBC is relatively normal hemoglobin is 8.6 electrolytes are normal BUN is 36 creatinine 3.17. Chest x-ray continues to show bilateral interstitial changes related to her COVID-19 pneumonia and ARDS, also some component of fluid overload is noted Objective - Vital Signs Vital signs: Vital Signs Temp 97.6 F 11/13/20 08:00 Pulse 108 H 11/13/20 11:00 Resp 16 11/13/20 11:00 BP 167/106 11/13/20 11:00 Pulse Ox 91 L 11/13/20 11:00 Intake & Output 11/12/20 11/13/20 11/13/20 18:59 06:59 18:59 Intake Total 498 64 Balance 498 64 Weight 98.3 kg Intake: Oral 90 Tube Feeding 408 34 Other 30 Other: Voiding Method Bedpan # Voids 1 # Bowel Movements 1 ABP, PAP, CO, CI - Last Documented Arterial Blood Pressure 136/76 - Exam GENERAL EXAM: Revealed a 35-year-old female, on 40% trach collar. HEAD: Normocephalic/atraumatic. Tracheostomy is intact. EENT: PERRLA, EOMI, nonicteric, no neck masses, no JVD, CHEST: No chest wall deformity. Symmetrical expansion. LUNGS: Diminished breath sounds at the bases no rhonchi or wheezes CVS: normal S1 and S2, no S3 gallop, no murmur. ABDOMEN: Obese soft nontender no megaly no rebound no guarding. PEG tube is intact. EXTREMITIES: no clubbing edema or cyanosis. Good pulses bilaterally Psychiatric: Normal mood, affect, normal mental status examination SKIN: No rashes, CENTRAL NERVOUS SYSTEM: Generally weak otherwise unremarkable. - Labs CBC & Chem 7: 11/13/20 03:17 11/13/20 03:17 Labs: Abnormal Lab Results - Last 24 Hours (Table) 11/12/20 11/12/20 11/13/20 Range/Units 16:34 21:00 03:17 WBC 11.4 H (3.8-10.6) k/uL RBC 3.12 L (3.80-5.40) m/uL Hgb 8.6 L (11.4-16.0) gm/dL Hct 27.4 L (34.0-46.0) % RDW 17.1 H (11.5-15.5) % Neutrophils # 7.9 H (1.3-7.7) k/uL Eosinophils # 1.4 H (0-0.7) k/uL Sodium (137-145) mmol/L Chloride (98-107) mmol/L BUN (7-17) mg/dL Creatinine (0.52-1.04) mg/dL Glucose (74-99) mg/dL POC Glucose (mg/dL) 146 H 113 H (75-99) mg/dL Calcium (8.4-10.2) mg/dL 11/13/20 11/13/20 11/13/20 Range/Units 03:17 06:55 11:52 WBC (3.8-10.6) k/uL RBC (3.80-5.40) m/uL Hgb (11.4-16.0) gm/dL Hct (34.0-46.0) % RDW (11.5-15.5) % Neutrophils # (1.3-7.7) k/uL Eosinophils # (0-0.7) k/uL Sodium 133 L (137-145) mmol/L Chloride 96 L (98-107) mmol/L BUN 36 H (7-17) mg/dL Creatinine 3.17 H (0.52-1.04) mg/dL Glucose 134 H (74-99) mg/dL POC Glucose (mg/dL) 160 H 162 H (75-99) mg/dL Calcium 10.3 H (8.4-10.2) mg/dL Assessment and Plan Assessment: Impression: Acute hypoxic respiratory failure secondary to COVID-19 pneumonia and ARDS s econdary to COVID-19 pneumonia, patient was transferred to the ICU on 09/11, intubated on 09/11, received REM on 09/11, received T OCI on 09/11, tracheostomy and PEG tube placement on 09/18 , patient is on trach collar. Weaned successfully from mechanical ventilation and liberated from mechanical ventil ation. Acute kidney injury with complete shutdown of urine output/anuria, requiring hemodialysis. Remains on hemodialysis Acute diabetic ketoacidosis and COVID-19 pneumonia on her initial presentation. Sepsis secondary to COVID-19 pneumonia Type 2 diabetes poorly controlled. History of hypertension. Generalized anxiety disorder. Morbid obesity BMI of 54.2. Status post tracheostomy and PEG tube placement on 09/18. Critical illness polyneuropathy and myopathy, remains on physical therapy. Non sustained ventricular tachycardia. Recommendation: Continue trach collar, and intermittent capping of tracheostomy. Continue physical therapy. Continue metoprolol and Cardizem. Continue hydralazine. Continue hemodialysis. May eventually decannulate her tracheostomy and place on nasal cannula. Still awaiting for placement in a halfway or rehabilitation facility. Continue nutritional support. We will continue to follow. Time with Patient: Less than 30
--- NOTE | 2020-11-13 14:01 | P.PN ---
Subjective Progress Note Date: 11/13/20 CHIEF COMPLAINT: COVID-19 pneumonia HISTORY OF PRESENT ILLNESS: Patient is in the ICU for COVID-19 pneumonia and respiratory failure. She is status post tracheostomy and PEG tube placement with Dr. Zhang. Patient has had poor oral intake but had been tolerating regular diet. She's been started back on tube feeds at 34 mL per hour. I she was having some constipation was given an enema and was able to have a bowel movement. Afebrile. They're still working on discharge planning PHYSICAL EXAM: VITAL SIGNS: Reviewed. GENERAL: Well-developed in no acute distress. HEENT: No sclera icterus. Extraocular movements grossly intact. Moist buccal mucosa. Head is atraumatic, normocephalic. Patient has wound located and skin breakdown at tracheostomy site. ABDOMEN: Soft. Nondistended. Nontender. PEG tube site clean dry and intact NEUROLOGIC: Awake and opens eyes ASSESSMENT: 1. Acute hypoxic respiratory failure with prolonged mechanical ventilation due to COVID-19 pneumonia status post tracheostomy placement 2. Severe protein calorie malnutrition status post PEG tube placement 3. Pressure wound at tracheostomy site PLAN: -Continue supportive care -Continue wound care at tracheostomy site -Patient is stable for discharge from surgical standpoint Physician Personnel Training Officer note has been reviewed by physician. Signing provider agrees with the documented findings, assessment, and plan of care. Objective - Vital Signs Vital signs: Vital Signs Temp 97.6 F 11/13/20 08:00 Pulse 108 H 11/13/20 11:00 Resp 16 11/13/20 11:00 BP 167/106 11/13/20 11:00 Pulse Ox 91 L 11/13/20 11:00 Intake & Output 11/12/20 11/13/20 11/13/20 18:59 06:59 18:59 Intake Total 498 64 Balance 498 64 Weight 98.3 kg Intake: Oral 90 Tube Feeding 408 34 Other 30 Other: Voiding Method Bedpan # Voids 1 # Bowel Movements 1 ABP, PAP, CO, CI - Last Documented Arterial Blood Pressure 136/76 - Labs CBC & Chem 7: 11/13/20 03:17 11/13/20 03:17 Labs: Abnormal Lab Results - Last 24 Hours (Table) 11/12/20 11/12/20 11/13/20 Range/Units 16:34 21:00 03:17 WBC 11.4 H (3.8-10.6) k/uL RBC 3.12 L (3.80-5.40) m/uL Hgb 8.6 L (11.4-16.0) gm/dL Hct 27.4 L (34.0-46.0) % RDW 17.1 H (11.5-15.5) % Neutrophils # 7.9 H (1.3-7.7) k/uL Eosinophils # 1.4 H (0-0.7) k/uL Sodium (137-145) mmol/L Chloride (98-107) mmol/L BUN (7-17) mg/dL Creatinine (0.52-1.04) mg/dL Glucose (74-99) mg/dL POC Glucose (mg/dL) 146 H 113 H (75-99) mg/dL Calcium (8.4-10.2) mg/dL 11/13/20 11/13/20 11/13/20 Range/Units 03:17 06:55 11:52 WBC (3.8-10.6) k/uL RBC (3.80-5.40) m/uL Hgb (11.4-16.0) gm/dL Hct (34.0-46.0) % RDW (11.5-15.5) % Neutrophils # (1.3-7.7) k/uL Eosinophils # (0-0.7) k/uL Sodium 133 L (137-145) mmol/L Chloride 96 L (98-107) mmol/L BUN 36 H (7-17) mg/dL Creatinine 3.17 H (0.52-1.04) mg/dL Glucose 134 H (74-99) mg/dL POC Glucose (mg/dL) 160 H 162 H (75-99) mg/dL Calcium 10.3 H (8.4-10.2) mg/dL
--- NOTE | 2020-11-13 15:33 | P.PN ---
Subjective Progress Note Date: 11/13/20 35-year-old female patient of Dr. Arroyo with past medical history of type 2 diabetes comes in with acute shortness of breath associated with high light sugars. Patient on admission was found to have a fever of 101.5 pulse rate 125 respiratory rate 20. Blood pressure 132/106. On chest x-ray obtained in the ER suggestive of bilateral infiltrates concerning for call with pneumonia. COVID PCR was positive. On admissions patient had an ABG with a pH of 7.14 pCO2 of 20, pO2 of 59, bicarb of 7. Patient's blood sugar on admission was 424 on assessment today patient's blood work patient had a sodium 135 potassium 5.4 chloride 123 bicarb less than 5 and creatinine 0.73. D-dimer was elevated on admission patient 9 28 patient given 1 L of IV fluids followed by normal saline running at 200 mL/h. Patient was positive for acetone on admission. She will anion gap closed and was switched to D5NS. Insulin drip was continued during the night and was switched to patient's home medication this morning. One dose of remdesiver was ordered. Apparently around noon, A- team was called on the patient secondary to hypoxia patient's oxygen saturation dropped to the 70s and 80s on 100% nonrebreather. Patient was switched to BiPAP on 18/12 and is doing better o FiO2 of 80%. ABG was obtained and ph was 7. 14 pCO2 of 28 bicarb of 7 pO2 of 17. Patient noted to have uncompensated metabolic acidosis with compensated respiratory alkalosis. Stat dose of 1 amp bicarb was given and followed by sodium bicarbonate drip. Insulin drip restarted. Patient's initiated on dexamethasone 6 mg IV twice a d ay. Potassium phosphate ordered as phosphorus is low. Patient's repeat blood gases suggest a pH of 7.25, CO2 32 pO2 of 72 bicarb 14. I will not normal saline at 100 mL/h as patient's anion gap has increased. Patient given 1 dose of 2 mg of morphine with improvement in respiratory rate. One dose of Ativan 0.5 mg was given. Xanax 0.25 twice a day along with Ativan 0.5 IV every 6 hours ordered for the patient. Vitals were evaluated patient pulse 129 [id number]. She was moved to the ICU. Precedex drip was initiated. Lopressor was initiated at 25 twice a day. Metoprolol tartrate 5 mg IV every 6 hours. Systolic blood pressure more than 160. Started chest x-ray was obtained and suggest stable bilateral consolidation suggestive of COVID-19 pneumonia. 09/12 patient is seen in the ICU is currently mechanically ventilated and sedated on vent settings of respiratory rate 36, tidal volume 375 FiO2 80% PEEP of 18.. Vital signs reviewed patient had a temp of 100.4 pulse 150 respiratory rate 36 oxygen saturation 95% on 80% on fio2 .'s labs are reviewed which patient had a d-dimer 1.84 that is increased to 14.3. Arterial Blood gas suggest ph 7.35, CO2 40, po2 62, . Her BMP suggest a sodium 135 potassium 3.7 chloride 112 bicarb 21 creatinine 1.57 for calcitonin is 3.5 CRP is increased from 8.78.2 LDH is increased to 2614. Patient remains on Pneumovax, propofol drip. Lovenox increased to 50 subcu twice a day. Patient received 2 L of IV fluids. Continue IV fluids at 100 mL/h. Bicarb drip discontinued patient initiated on Zosyn 3.375 every 8 hours. Continue insulin drip at 4 units per hour. Patient is currently in prone positioning 09/13: Patient evaluated in the ICU remains on Ventilation continues to be sedated, in prone position. Vent settings are respiratory rate 36, tidal vital 375, FiO2 70% PEEP of 18. ABG shows pO2 of 82, PCO2 of 39, pH is 7.19. Latest labs show WBC 11.1, hemoglobin 13.2, d-dimer still pending, but yesterday was up to 14.3. Creatinine up to 3.4, BUN 24 sodium 137, potassium 4.0. Patient's urine output has been low, nephrology on consult. Bicarb drip increased to 100 miles an hour, receiving another liter of normal saline, she did have a ultrasound that showed unremarkable bilateral kidneys. Repeat chest x-ray showed bilateral lung infiltrates that are stable. Anion gap has closed, will start Lantus 10 units at at bedtime Novolog every 6 hours. 09/14: Patient is seen in the ICU, still currently mechanically ventilated and sedated. She continues in the prone position. Her oxygen quickly drops if she is not in prone. Patient's kidney function has worsened. Laboratory values show creatinine of 4.87, BUN 33, LDH 2191, C-reactive protein 2.7. ABG shows pH 7.32, pO2 of 60, pCO2 43. Patient is making almost no urine overnight. Nephrology is following patient continues on cefepime for urinary tract infectio n, culture is still pending. Vascular has been consulted for placement of temporary hemodialysis catheter for plans for dialysis. 09/15: Patient evaluated in the ICU, continues to be mechanically ventilated and sedated on assist control ventilation rate of 36, tidal volume 375, FiO2 100% and PEEP of 18. ABG today shows pO2 58, pCO2 of 45, and pH 7.35. She continues on tube feedings. Yesterday patient underwent ultrasound-guided right internal jugular non-tunneled hemodialysis catheter placement. Patient underwent hemodialysis treatment last night and plans have another hemodialysis treatment today. She continues to make almost no urine. She continues on cefepime for antibiotic coverage, and continues on Decadron and Lovenox. 09/16: Patient seen on follow-up remains in the ICU mechanically ventilated and sedated. She continues on assist control rate of 36, tidal volume 375, FiO2 10 0% and PEEP of 20. PEEP had to be increased due to patient had to be in supine position for dialysis, will go back to prone position once dialysis is complete. ABG shows pH 7.32, pCO2 49, PaO2 61. Laboratory values showed WBC 11.2, hemoglobin 11, sodium 134, creatinine 4.44, BUN 38. Urine culture shows no growth, blood cultures show no growth to date. Repeat chest x-ray shows bilateral pleural effusions, correlate for ARDS, pulmonary edema, diffuse pneumonia, findings are stable from last exam. Patient does not require any pressors, blood pressure 133/57, heart rate 78. 5/16: Patient was evaluated in the ICU today for follow-up. She continues to be intubated and on mechanical ventilation. Current vent settings are tidal volume 375, FiO2 100% and PEEP of 20. ABG shows pH 7.37, pCO2 40, pO2 102. She continues with intermittent prone positioning. Patient continues to have almost no urine output, maintained on dialysis. Patient received dialysis yesterday without complication. Laboratory values revealed WBC 10.3, hemoglobin 10.4, sodium 132, potassium 3.1, BUN 33, creatinine 4.29, LDH 1913, C-reactive protein 1.3. Urine and sputum cultures are negative, blood cultures show no growth to date. Consult placed to dietary to start TPN[ ] 09/18: She remains in the intensive care unit intubated and on mechanical ventilation with tidal volume 375, FiO2 60 and PEEP of 20. Patient is being prone to daily at approximately 16 hours per day. Pulmonary medicine has added in Dr. Zhang to do PEG tube and trach today. Patient is not on vasopressors. Repeat blood work reveals WBC 12.6, hemoglobin 9.8, platelet count 212. Sodium 133, potassium 3.2, chloride 102, CO2 21, BUN 35 and creatinine 4.12. Blood sugar 126. Patient underwent hemodialysis yesterday with removal of 2 L and is scheduled again today with goal of 2-3 L and is scheduled again tomorrow. 09/19: She is scheduled for hemodialysis today and is off fentanyl temporarily. Patient is status post trach and PEG tube yesterday. And she remains on mechanical ventilation. Pulse ox 93-95%. She has been afebrile, heart rate 64, respiratory rate 36, blood pressure 115/50. Fentanyl is off to improve blood pressure for hemodialysis which is scheduled for today. Contacted vascular surgery about permanent hemodialysis catheter. Repeat blood work reveals WBC 14.3, hemoglobin 9.6, platelet count 200. D-dimer 6.48. LDH 1686. C-reactive protein 1.1. BUN 34 creatinine 3.81. Sodium 130, potassium 3.5, chloride 101, CO2 18. Blood sugars running between 101 198. Plan is to wean off Pneumovax today. Patient remains on insulin drip. Repeat chest x-ray reveals bilateral multifocal confluent opacities consistent with COVID-19. Some improved aeration periphery of the left lung and worsening opacities throughout the right lung. 09/20: She remains in the intensive care unit on mechanical ventilation. She has been afebrile, heart rate 65, respiratory rate 37, blood pressure 121/70, pulse ox 91-99%. Repeat blood work reveals WBC 14.5, hemoglobin 9.1, platelet count 216. D-dimer 6.13. Sodium 133, potassium 3.1, chloride 102, CO2 18, BUN 35 and creatinine 4.27. Blood sugars running between 128 and 143. LDH 1717. C- reactive protein 1.7. Patient remains on insulin drip which will be transit ioned to NovoLog scale every 6 hours. Patient is scheduled for permanent hemodialysis catheter placement today with vascular surgery. Repeat chest x-ray reveals stable diffuse bilateral interstitial and airspace disease. Possible small right effusion. His work is following for transfer to [facility] facility. Do not anticipate discharge until next week. 09/21: Patient is undergoing hemodialysis. She remains on mechanical ventilation with tidal volume 375, FiO2 down to 45 and PEEP was decreased to 15. Patient is continued on propofol, fentanyl drips. She is on tube feedings at goal. Patient was taken off insulin drip yesterday and on scale only but blood sugars are running in the 200s, Levemir scheduled at bedtime will be added. Other blood work reveals WBC 13.3, hemoglobin 8.7, platelet count 192. Sodium 137, potassium 3.6, chloride 107, CO2 18, BUN 34 and creatinine 4.21. Repeat chest x-ray is stable. 09/22: She remains in the intensive care on mechanical ventilation with tidal volume 375, FiO2 of 50 and PEEP of 10. Pulse ox is running 96%. She is afebrile, heart rate in the 50s, respiratory rate 36, blood pressure 100/64. Repeat blood work reveals WBC 16.5, hemoglobin 8.9, platelet count 213. Sodium 134, potassium 3.7, chloride 103, CO2 21, BUN 34 and creatinine 3.89. Blood sugars running in the 200s to 324. Levemir increased to 16 units at bedtime and continue NovoLog scale every 6 hours. Patient is on tube feedings at goal. She has a Haley catheter in with a scant amount of dark/brown urine. Fecal management system is in place. Repeat chest x-ray reveals diffuse bilateral airspace infiltrates persist unchanged. Patient is scheduled for hemodialysis tomorrow morning on Friday. 09/23: Patient remains on mechanical ventilation with tidal volume 3.75, FiO2 50 and PEEP of 10. 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 She has no urine output. Fecal management system is in place. She is undergoing dialysis at this time with plan for removal of 2-1/2 L. She has been afebrile, heart rate in the 50s, respiratory rate 36, blood pressure 108/76 and pulse ox 89%. WBC 13.6, hemoglobin 9.1, platelet count 194. Sodium 136, potassium 3.0 and was replaced, chloride 106, CO2 21, BUN 49 creatinine 5.31. Blood sugars are running between 182 and this morning 194. Patient was still in the 200s and 300s. Levemir last evening was increased to 16 units. Patient remains on propofol and fentanyl drips. Lovenox was increased to 60 mg twice daily. 09/24: PEEP was increased today to 20, tidal volume is at 375 and FiO2 of 50%. Patient has been afebrile. She has been started on levo fed. Repeat chest x- ray reveals bilateral multifocal confluent opacities consistent with Covid 19 or ARDS redemonstrated. Nephrology will plan dialysis for tomorrow for 3 L. Patient remains on propofol fentanyl and Nimbex. WBC 12.5, hemoglobin 9.8, platelet count 161. D-dimer 13.3. Sodium 132, potassium 3.4, chloride 102, CO2 20, BUN 48 and creatinine 4.67. Blood sugars extremely elevated to 96-409. LDH 2217. 09/25: Patient remains in the intensive care unit on mechanical ventilation with tidal volume 375, FiO2 50 and PEEP of 20. Patient is afebrile, heart rate 61, respiratory rate 36, blood pressure 102/56, pulse ox 97%. Repeat blood work reveals WBC 9.3, hemoglobin 8.5 and platelet count 171. Sodium 130, potassium 3.7, chloride 100, CO2 20, BUN 61 creatinine 5.65. Blood sugars have been elevated up to 455. Levemir increased to 20 units twice daily, NovoLog 5 units every 6 hours and continue NovoLog scale. Patient is scheduled for hemodialysis today. Repeat chest x-ray reveals bilateral multifocal and confluent opacities. Decadron and Lovenox dosing change by pulmonary. Patient is off norepinephrine. 09/26: Patient remains in the intensive care unit on mechanical ventilation with tidal volume 375, FiO2 50 and PEEP of 15. She has been afebrile, heart rate 91, blood pressure 114/68, pulse ox 99%. 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 Sodium 134, potassium 3.6, chloride 102, CO2 22, BUN 41 creatinine 4.21. Patient has improved blood sugars this morning running 150s and 160s. Diabetic medications were adjusted yesterday. Patient is awake and alert and interacting. Yesterday, patient had PICC line inserted by interventional radiology. Repeat chest x-ray reveals diffuse airspace infiltrates in both lung ann appear to progress slightly in the interval. 09/27: Patient remains in intensive care unit on mechanical ventilation with improvement of settings with tidal volume 375, FiO2 decreased to 40 and PEEP decreased to 10. Patient is on hemodialysis every other day and plan to remove 3 L today. Patient is more awake and alert. She is slow to respond but is able to follow simple commands. Blood sugars are running between 84 and 123. Repeat blood work reveals WBC 7.1, hemoglobin 8.1, platelets 152. Sodium 135, potassium 3.6, chloride 103, CO2 21, BUN 53 and creatinine 5.88. Repeat chest x-ray revealed cardiomegaly and pulmonary edema. Patient is on tube feedings:. Patient is not require vasopressors and is off sedation. Fecal management system remains in place for brown liquid stool. C. difficile was negative. 09/28: Patient remains on mechanical ventilation with tidal volume 375, FiO2 increased to 80 and PEEP increased to 18. Patient had a rough night was very anxious, no pain. Xanax 0.25 mg 3 times daily was added. There is concern for pulmonary embolism for which patient was started on heparin drip, she is unable to undergo CAT scan. Venous Doppler bilateral lower extremities was nondiagnostic due to extensive edema in obese patient but minimal imaging of the popliteal veins does show flow. Repeat echocardiogram has been ordered. Cefepime has also been ordered at 1 g IV piggyback every 24 hours as well as vancomycin, pharmacy dosing. Patient is back on fentanyl drip, propofol drip and norepinephrine. Blood sugars are elevated and insulin Levemir will be increased to 25 mg twice daily. Ferrlecit infusion has been ordered by nephrology for 4 days. Patient is undergoing hemodialysis today.temperature max 100.2, heart rate 134, respiratory rate 34, blood pressure 120/65, pulse ox 94%. geographic information systems director is sinus tachycardia. Repeat blood work reveals WBC 16.9, hemoglobin 9.7, platelet count 216. D-dimer 8.81. Sodium 134, potassium 3.8, chloride 99, CO2 25, BUN 43 and creatinine 5.36. Blood sugars in the 200s. AST 40. 09/29 Patient had declined more last 48 hours require more sedation, patient is doing hemodialysis, respiratory failure is quite bit worse this time. Patient was inquired the pain is well back on fentanyl drip. Her vent set up with PEEP is limited but higher. No new finding on culture and her chest x-ray continues shows diffuse infiltrate persistent although there is a moderate interval improvement. 09/30 patient's was seen and evaluated. PEEP was reduced to 11 as patient is maintaining good saturation at the current vent settings. 10/01 patient was seen at bedside. She is currently on assist control rate of 28 white tidal volume 350 FiO2 50% and PEEP of 10 which has been reduced by pulmonary as patient name cleaning her oxygen saturation. Arm blood gas was obtained with a pH of 7.35 pCO2 37 pO2 of 63. She remains hemodynamically stable with no need for pressors. Labs were reviewed patient's BUN is 29 creatinine 3.93 glucose 122 albumin 2.2 sodium 131 chloride 19 hemoglobin is downtrending with a Hb of 7.3 no leukocytosis 7.1. Patient's urine output is m inimal at this time. Her rate has increased to 129 and is currently on positive fluid balance even with dialysis. Last dialysis was done yesterday. Continue enteral feeding currently at goal. Antibiotic has been discontinued and continues to remain on DEXA methicillin 4 mg IV daily. 10/02 patient continues to be on trach support with mechanical ventilation. Patient was evaluated by vice investigator and was switched to VC control as patient was noted to be double stacking on and off throughout the night. Respiratory rate continue to 28 tidal volume increased to 400 with a PEEP for Dr. Downey. Venkatesh gregorio is maintaining oxygen saturation 91% on the current setting. According to the nurse bedside patient saturation drops significantly or she is moved or her sedation is dropped. Patient is currently on propofol drip, fentanyl drip. She did underwent dialysis today and was able to maintain her low pressure without the need of pressors. Labs reviewed today suggest a WBC of 6.7 hemoglobin of 7 .0 and d-dimer 3.9 bicarb 17 BUN 38 creatinine 4.8. LDH is 964. Sodium 1:30 likely secondary to volume overload. Urine sodium and urine osmolality ordered. Patient's glucose this morning is 146. Continue to remain on enteral feeding. Urine output is reduced. Fall catheter will be placed today. Continue to remain on dialysis. 10/03: Patient remains on mechanical ventilation and is back on propofol and fentanyl drips. Patient is currently on VC control with tidal volume 400, FiO2 55 and PEEP of 12. Patient still is not making any urine and is dialysis dependent with next treatment planned for tomorrow with removal of 3-3-1/2 L. PEG tube feedings are at goal. Fecal management system remains in place. At the time of evaluation, patient is off levophed. Repeat chest x-ray reveals s table diffuse bilateral airspace disease correlate for ARDS, pulmonary edema or diffuse pneumonia. Temperature max last evening was 101. Temperature currently 99, heart rate 106, respiratory rate 32, blood pressure 101/50, pulse ox 86%. Repeat blood work reveals WBC 6, hemoglobin 7.4, platelet count 160. D-dimer 4.05. Sodium 133, potassium 3.5, chloride 100, CO2 23, BUN 31 creatinine 3.8. Blood sugars are running between 100 and 170. Ferritin 1514. Liver function test normal. LDH 1016, C-reactive protein 13.6. Prognosis remains guarded. 10/04: Patient remains intubated on mechanical ventilation with tidal volume 400, FiO2 65, PEEP of 14. Patient continues to run fevers and repeat blood culture and urine and urine culture ordered for today. Haley catheter has been removed this patient has no significant urine output at about 20 mL per shift. BladderScan is monitored for greater than 300 and the patient is straight cathed. Hemoglobin is 6.8 and she has been ordered 41 unit of packed RBCs today. She is currently on propofol and fentanyl drips. She is scheduled for hemodialysis today. WBC 4.5, hemoglobin 6.8, platelet count 151. D-dimer 3.28. Sodium 132, potassium 4.1, chloride 100, CO2 22, BUN 37 creatinine 4.74. Blood sugars running between 97 and 110. Ferritin 1801. LDH 859. C-reactive protein 14.4. Chest x-ray reveals correlate for pneumonia, edema, ARDS. Prognosis remains guarded. 3: Patient remains in intensive care unit currently on mechanical ventilation with tidal volume 400, FiO2 was increased to 100 and PEEP is at 14. She continues to run fevers which have worsened with temperature max 103.1. She has been tachycardic in the 130s, blood pressure is marginal but not on vasopressors. Pulse ox currently 92%. Repeat blood work reveals WBC 5.5, hemoglobin 7.6, platelet count 190. D-dimer 2.7, ferritin 1770, LDH 932, C- reactive protein 21.4. Blood sugars are running between 100 1669. Electrolytes are normal. BUN 27 and creatinine 3.79. Pancultures were done yesterday including a straight cath for urine culture, sputum culture and blood culture. Arterial line was removed as well as midline. She is currently on propofol, fentanyl and started on Nimbex today. 10/06: Patient remains in the intensive care unit. Today patient in prone position and remains on mechanical ventilation with tidal volume 350, FiO2 65 and PEEP of 14. Her last documented fever was yesterday at 2 PM. Heart rate is in the 120s, respiratory rate 32, pulse ox 88-92%. CBC is unremarkable. Electrolytes are normal. BUN 30 creatinine 2.93. Blood sugars are running between 135 and 164. Cultures from October 04: Blood culture no growth, sputum culture finalized, urine culture finalized. Catheter tip culture is in process. Repeat chest x-ray shows bilateral interstitial infiltrates. Patient is on tube feedings of Nepro at goal of 30 ML's per hour. Patient underwent dialysis yesterday and is scheduled for repeat dialysis today. 10/07: Patient maintains in the intensive care unit intubated and on mechanical ventilation. She is receiving hemodialysis this morning has been every day. Plan is to remove 2-1/2 L today. Vent settings have changed today with tidal volume 350, FiO2 was increased to 100% and PEEP remains at 14. She has been continued on Nimbex, fentanyl, norepinephrine and propofol. Plan is to prone position patient following dialysis. Repeat chest x-ray reveals worsening interstitial infiltrates. BUN is 26 and creatinine 2.59. LDH 955, C-reactive protein 22.1. Prognosis remains poor. 10/08: Patient remains in intensive care unit intubated and on mechanical ventilation with tidal volume 350, FiO2 60, PEEP of 14. She is pronating today. She is scheduled for hemodialysis on a daily basis. She has been afebrile, heart rate 112, respiratory rate 36, blood pressure 161/88, pulse ox 93%. Re peat blood work reveals WBC 9.9, hemoglobin 9.1, platelet count 320. Sodium 133, potassium 5.3, chloride 100, CO2 20, BUN 29 creatinine 2.44. Blood sugar running between 102 and 139. LDH 1026, C-reactive protein 19.7. 10/09: Patient is undergoing dialysis this morning. She continues to be intubated and on mechanical ventilation with tidal volume 350, 270 and PEEP of 14. Patient is also on propofol, Nimbex, norepinephrine and fentanyl drips. Repeat chest x-ray reveals persistent bilateral multifocal and confluent opacities consistent with Covid 19. She is afebrile, heart rate 116, respiratory rate 36, blood pressure 120/65, pulse ox 91%. Repeat blood work reveals WBC 5.4, hemoglobin 9.2, platelet count 216. D-dimer 2.67, ferritin 2568, LDH 794, C- reactive protein 13.9. Blood sugars have been running 90-104. Creatinine 1.64. She is on daily dialysis treatment. 10/10: She remains in the intensive care unit. She is now out of isolation as a repeat Covid test came back negative. She remains on mechanical ventilation with tidal volume 350, FiO2 70 and PEEP of 14. Patient is also on Nimbex, propofol, norepinephrine, fentanyl drips. She is on PEG tube feedings at goal and tolerating well. Repeat blood work reveals WBC 7.8, hemoglobin 7.5, platele t count 267. Sodium 139, potassium 3.9, chloride 109, CO2 20, BUN 20 creatinine 1.29. Blood sugars are running between 76 and 102. Scheduled NovoLog decreased to 3 units. Repeat chest x-ray reveals moderate cardiomegaly and continued pulmonary edema. Slight interval improvement. Patient is continued on daily hemodialysis. 10/11: Patient remains in intensive care unit on mechanical ventilation with tidal volume 325, FiO2 70, PEEP 14. She is currently being prone. She underwent hemodialysis this morning with removal of 4 L of fluid with plan to continue daily treatment. She is currently on Nimbex, fentanyl and propofol. No vasopressor at this time. Fecal management system remains in place. She is on tube feedings currently at hold due to prone positioning. Patient has been afebrile, heart rate 116, respiratory rate 36, blood pressure 100/58, pulse ox 93-96%. Repeat blood work reveals WBC 9.3, hemoglobin 8.1, platelet count 276. Sodium 136, potassium 4.3, chloride 103, CO2 20, BUN 20 creatinine 1.14. Blood sugars running between 133 and 202. 10/12: Patient remains in the intensive care unit. She is undergoing hemodialysis this morning. She's been afebrile, heart rate in the 120s, respiratory rate 32, blood pressure 102/65. She is not on vasopressors. She is continued on Nimbex, fentanyl and propofol. Vent settings are currently tidal volume 325, FiO2 70, PEEP 14. Total platelet count 273. Sodium 133, potassium 4.7, chloride 100, CO2 19, BUN 21 creatinine 0.91. Blood sugars running between 121 and 143. 10/13: Patient remain in the ICU she is on hemodialysis daily, she is still on the vent with a PEEP of 14 and FiO2 of 70. Her oxygenation is marginal pulse rate still high. Patient had scratched cornea was seen in ophthalmology decided to keep doing eyedrops along with eye patch at this point. Prognosis still very bad this point. 10/14: She remains on mechanical ventilation with tidal volume 325, FiO2 70% and PEEP of 14. She did require label fed last evening for about 6 hours. She did not tolerate pronating yesterday. She is undergoing dialysis this morning with plan for removal of 4 L. Blood sugars have been low and IV fluids changed to D 10 until blood sugars have recovered. Levemir and scheduled NovoLog discontinued. Patient is on tube feedings at goal there's been no change in this. 10/15 patient remains on mechanical ventilation in the intensive care unit. FiO2 still at 70%, PEEP of 18. Blood sugars have improved since medications were adjusted. White blood cells 33.9, hemoglobin 8.5, sodium 135, BUN 19, creatinine 0.96. Patient to receive dialysis again today. Patient did run a low-grade fever throughout the night and pro calcitonin level is ordered. Chest x-ray showed continued diffuse bilateral airspace disease. Patient remains on tube feedings at goal. 10/16: Patient remains on mechanical ventilation with tidal volume 300, FiO2 70, PEEP of 15. Fecal management system is out. She is currently on low dose of norepinephrine. She is also on fentanyl drip, propofol drip, rocuronium drip. Heart rate is running in the 130s, sinus rhythm, blood pressure 121/63, pulse ox 95%. Patient is been afebrile. Repeat blood work reveals WBC 18.9, hemoglobin 7.5, platelet count 291. Sodium 135, potassium 4.2, chloride 101, CO2 19, BUN 25 and creatinine 1.36. Blood sugars are running between 143 and 199. Patient is on scale insulin only. Repeat chest x-ray reveals persistent bilateral multifocal and completed opacities consistent with Covid 19. 10/17: Patient remains on mechanical ventilation with tidal volume 300, FiO2 50, PEEP of 14. She is currently receiving hemodialysis. The patient is having yellow-colored drainage from the trach site. This is going to be culture today. Repeat blood work reveals WBC of 24, hemoglobin 7.3 and platelet count 310. Sodium 136, potassium 4.1, chloride 101, CO2 19, BUN 24 creatinine 1.43. Blood sugar 139. Capillary blood glucose running 147 and 189. Repeat chest x-ray is unchanged. Patient had increased respiratory rate 40s and 50s with oxygen saturation of 87 and now was increased and Seroquel added this morning. Prognosis remains guarded. 10/18: Patient remains on mechanical ventilation with tidal volume 300, FiO2 60, PEEP has been decreased to 12. Patient will need a PEEP of 8 in order to transfer to long-term care. She is currently on fentanyl drip and Precedex drip. Patient is tracking when her name is stated. She seems to be slightly i mproved today. Patient has been afebrile, heart rate 106, respiratory rate 32, blood pressure 110/61, pulse ox 98%. Repeat blood work reveals WBC 30.3, hemoglobin 7.2, platelet count 350. Sodium 139, potassium 4.2, chloride 103, CO2 20, BUN 23 creatinine 1.79. Blood sugars are increasing running up 299. Patient will be placed on Levemir. Secretions from tracheotomy sent for culture and in process. She is currently undergoing hemodialysis. 10/23: Patient remains in the intensive care unit on mechanical ventilation with tidal volume 300, FiO2 65 and PEEP of 10. geographic information systems director has been in a sinus rhythm. Patient does open her eyes and appears to be tracking. Blood sugars have been elevated. Levemir will be increased to 40 units daily and scheduled NovoLog increased to 12 units and continue NovoLog every 6 hours per scale. Patient is receiving hemodialysis today. She is not currently on vasopressors. Patient is on Precedex drip only. Antibiotics in the form of cefepime were started on October 18. Patient has been afebrile, heart rate 126, respiratory rate 36, blood pressure 163/105. Pulse ox 91%. Repeat blood work reveals WBC 16.0, hemoglobin 7.2, platelet count 208. Electrolytes are within normal limits. BUN 62 and creatinine 2.43. Blood sugars running between 259-321. Most recent blood culture from October 22 is no growth at 24 hours. Repeat chest x-ray reveals cardiomegaly and persistent bilateral pulmonary edema. 10/24: Patient is awake, eyes are open and tracking, she is able to follow simple commands. Severe generalized weakness noted. Precedex gtt has been discontinued. Patient is receiving hemodialysis. Her blood sugars have remained elevated for which Levemir increased to 25 units twice daily along with 15 units of NovoLog every 6 hours along with scale. Tidal volume 330, FiO2 60, PEEP of 8. digital sales manager and executive secretary social welfare following closely. Anticipate possible discharge by the end of next week to long-term care facility. 10/25: Patient remains in the intensive care unit on mechanical ventilation. Tidal volume 350, FiO2 60, PEEP 8. She is receiving hemodialysis this morning. Her heart rate remains elevated in the 130s. Pulmonary as started her on Cardizem at 60 mg 3 times daily which has not had any improved effect. We'll start the patient on Lopressor 25 mg twice daily. Patient has been afebrile, heart rate respiratory rate 32, blood pressure 151/91, pulse ox 98%. Patient is been transfuse 1 unit of packed RBCs today. Patient's mental status is improving and patient is able to follow simple commands. WBC 12.2, hemoglobin 6.3, platelet count 196. Sodium 135 otherwise looked lites are normal, BUN 48 creatinine 1.99. Blood sugars are running between 120 and 172. Levemir has been increased to 30 mg twice daily continue 15 units of NovoLog every 6 hours with scale. 10/26: Patient remains in intensive care unit, on mechanical ventilation with tidal volume 375, FiO2 50, PEEP of 8. Patient's heart rate remains elevated 120s and Lopressor increased to 50 mg twice daily. Patient seems to be quite anxious and depressed. We will decrease Seroquel to 50 mg twice daily and start patient on Lexapro. Patient received her first dose of Xanax this morning but this did not seem to help heart rate either. She has been afebrile, heart rate 128, blood pressure 149/79, pulse ox 93%. Repeat hemoglobin 7.3. Sodium 135, potassium 3.9, chloride 90, CO2 30, BUN 45 and creatinine 1.94. Blood sugar are improved running between 117-194. We will make further adjustments to insulin and to increase long-acting to 35 units twice daily and decrease NovoLog scheduled to 7 units and continue NovoLog scale. There are problems with patient's trach and consequently placed with [facility]. General surgery to reevaluate trach. 10/27: Patient is complaining of nausea today. Concerned that this is related to Lexapro. We will further decrease Seroquel to 50 mg at bedtime. Patient is being bladder scanned and last bladder scan wasn't 125 mL. She does not have Haley catheter. No fecal management system. She is having a bowel movement about 3 per day. Plan is for CPAP trial today. She is currently on mechanical ventilation with tidal volume 375, FiO2 50 and PEEP of 8. She has been afebrile, heart rate 105 which is much improved from the last few days. Blood pressure 145/88, pulse ox 94%. There is a new consult in place for Dr. Clemente regarding exchanging the trach and possible debridement at site. WBC 11.4, hemoglobin 8.2, blood count 218. Sodium 136, potassium 4.1, chloride 97, CO2 31, BUN 47 creatinine 1.97. Blood sugars running between 129 and 204. We have changed long acting insulin to 35 units twice daily and continue NovoLog 7 units every 6 hours and scale every 6 hours. Nephrology may be decreasing frequency of dialysis treatments. Anticipate probable discharge to long-term care next week. 10/28: Patient was complaining of nausea today which has resolved. CPAP trial wi ll continue today. She is currently on mechanical ventilation with a tidal volume 375, FiO2 of 50, PEEP of 8. She is afebrile, heart rate 108 which continues to show improvement. Blood pressure 133/87, pulse ox 99%. Patient is able to follow commands. And answers appropriately with nodding her head. WBC 10.5, hemoglobin 8.0, potassium 4.6, BUN 46, creatinine 1.96. Patient is currently receiving hemodialysis. 10/29: Patient was found sitting up in bed. Able to answer some questions approp riately. Utilizing kim. Able to follow commands. Ann over elevated blood sugars. Levemir 35 units twice a day will continue at this with a 7 unit coverage. Patient remains afebrile. Heart rate 102, respirations 29, blood pressure 124/74, pulse ox 97% on mechanical ventilation. Mechanical ventilation settings with a tidal volume 375, FiO2 of 50 and a PEEP of 8. Family has been into see patient. Hemodialysis will be held today. 10/30: Patient remains in the ICU on mechanical ventilation. She is not requiring pressure support. She is on CPAP support. She is receiving hemodialysis this morning with plan to start a Friday schedule this week. Blood sugars are stable and running between 140 and 184. She is on tube feedings at goal and having bowel movements every 12 hours. Repeat blood work reveals WBC 8.9, hemoglobin 10.2, platelet count 258. Sodium 133, potassium 5.0, chloride 97, CO2 23, BUN 69 creatinine 2.67. 10/31: Patient is seen today in intensive care unit. She remains on mechanical ventilation with tidal volume 375, FiO2 45 of PEEP of 5. Patient is found sitting in a chair working with physical therapy. Patient is noted to have left arm weakness without pain and good sensation. She is not receiving dialysis today and will be started on Friday regime. Patient's heart rate is better controlled in the 80s, blood pressure 113/65, pulse ox 99%. Patient is been afebrile. Patient has been on cefepime. Repeat blood work reveals WBC 9.3, hemoglobin 6.9 and patient is transfused 1 unit of packed RBCs today. Platelet count 248. Electrolytes are within normal range, BUN 38 and creatinine 2.04. Her blood glucose running between 130 and 193. AST 38. Social work is working with the daughter regarding discharge planning. 11/01: A she was undergoing dialysis with plan for 3 L removed today and dialysis is scheduled Friday. She is in bed and appears to be comfortable. She is able to talk and express herself and is cognitively intact. She remains on mechanical ventilation. She has been afebrile, heart rate 107, blood pressure 115/85, pulse ox 99%. Repeat blood work reveals WBC 8.5, hemoglo bin 7.5, platelet count 278. Sodium 136, potassium 4.8, chloride 100, CO2 27, BUN 55 creatinine 2.81. Blood sugar running between 114 and 185. Calcium 10.3, total bilirubin 0.2, AST 34, ALT 34, alkaline phosphatase 144. Social work is working on discharge planning which will be to [facility], [facility] or [facility]. 11/02: Patient remains in the intensive care unit on mechanical ventilation with tidal volume 375, FiO2 40, PEEP of 5. Patient's mental status continues to be improved. She has been afebrile, heart rate 97, blood pressure 144/86, pulse ox 98%. Repeat blood work reveals WBC 8.3, hemoglobin 7.2, platelet count 255. Sodium 135, potassium 4.5, chloride 98, CO2 20, BUN 42 and creatinine 2.36. Blood sugars are running between 124 278. She is scheduled for hemodialysis tomorrow with plan for 4 L to be removed. Social work is working on discharge plan and once patient has been accepted and insurance authorization is obtained if needed, patient will be discharged. 11/03: Patient remains in intensive care unit on mechanical ventilation patient is currently on pressure support of 15, CPAP of 5 and FiO2 of 40%. A trach collar is to be attempted today in order to get the patient discharged to superintendent terminal care facility. Land is for medical [place] on Friday if patient continues to improve. He has been afebrile, heart rate in the 80s, blood pressure 90/57, pulse ox 100%. Repeat blood work reveals WBC 7.5, hemoglobin 6.9, platelet count 255. Sodium 133, potassium 5.1, chloride 97, CO2 27, BUN 59 creatinine 3. Blood sugars up and running 117 164. 11/04 patient remains in ICU, this is day number 55, pulmonary is following closely, they have recommended fenestrated trach, for which Dr. warren is going to perform, patient is anticipated to be discharged to long-term care facility, most likely early next week. She is stable, with no new fevers, antibiotics has been completed, blood sugars are stable, hemoglobin 7.7, WBC 8.5, blood sugars running between 145-150, creatinine of 2.34 11/05: Patient remains in ICU, trach collar replaced by Dr. Zhang this a.m., patient's communicating with handwritten communication mentions that she has back pain, on IV Dilaudid still, we'll replace Sebec 7.5, also cannot sleep, muscle relaxants started with cyclobenzaprine, where finalizing discharge planning, to subacute rehab long-term care no fever no chills, coughing a lot, with mucus production, suctioning on the trach when necessary by nursing staff, 11/06: Patient is still having refractory sleep, wakes up with chills and sweats, also. Alternating hot and cold, iron is suspected to be low, hemoglobin of 7.2, check for iron studies, on Ativan and aspirin, start melatonin 6 mg at bedtime, might need Zestril, however is on Seroquel. We'll going to increase Seroquel to 75 mg blood sugars are stable, no change in program today, pain control is better, using Sebec 7.5. 11/07: Patient remains in the intensive care unit on trach collar at FiO2 of 35%, flow rate of 8. Patient states that she slept better last evening. We will add in consult for speech therapy to evaluate if patient can start on oral food. She is currently on tube feedings at goal. Repeat blood work reveals WBC 7.9, hemoglobin 8.0, platelet count 238. Sodium 130, potassium 3.9, chloride 93, CO2 28, BUN 48 creatinine 2.84. Capillary blood glucose running between 75 and 129. Iron 22, TIBC 244, iron saturation 9.0 to. Total bilirubin 0.1, AST is 26, ALT 27, alkaline phosphatase 115. TSH 1.7. 11/08: Social work is trying to determine discharge plan. Currently looking at inpatient rehab facilities. Patient has been seen by speech therapy and approved for oral intake and she is having her first meal today. She is undergoing hemodialysis today. She's been afebrile, heart rate 88, blood pressure 155/96, pulse ox 94% on trach collar 35% FiO2. Blood sugars are running in the 70s and 80s. Patient is working with therapies. 11/09: Patient is off tube feedings completely and taking all oral nutrition. Dr. See stopped the scheduled Levemir is now blood sugars are on the low side. Patient states she is sleeping well. Seroquel has been completely discontinued. She has been afebrile, heart rate 96, blood pressure 124/78, pulse ox 96% on trach earlier at 35 FiO2. Repeat blood work reveals sodium 138, potassium 3.8, chloride 106, CO2 26, BUN 25 and creatinine 2.26. Blood sugars running between 48 and 125. composition siding worker is trying to make placement for the patient for rehab. 11/10: Patient has been resumed on tube feedings due to low oral intake. She is receiving dialysis this morning and is nauseated and does not feel well. [facility] Mid[facility] has been ordered and PICC line discontinued. A consult has been placed with Dr. Walker for evaluation of inpatient rehab. Noted he has documented limited endurance and would not be able to participate in the full inpatient rehab program. Patient has been afebrile, heart rate 95, blood pressure 154/82. Pulse ox 88% on trach collar. Repeat blood work reveals sodium 134, potassium 4.2, chloride 103, CO2 22, BUN 13 creatinine 2.94. Blood sugars are running between 101 125. 11/11: Patient is sitting up in bed in no acute distress. Exercise has been given for patient to be transition to full inpatient rehab program. Patient remains afebrile, heart rate 116, blood pressure 160/109, respirations 22, pulse ox is 90% with movement on a trach collar. FiO2 60. Patient able to answer questions appropriately. Tolerating diet. Hydralazine ordered for elevated blood pressure. 11/12: Sitting in bed in no acute distress. She is experiencing some episodes of constipation. And difficulty sleeping at night. He remained afebrile, blood pressure 151/91 heart rate 112, pulse oximetry 92% on trach collar. Patient continues with a exercise program to support transition to a full inpatient rehab program. 11/13: Patient remains in intensive care unit. She appears to be comfortable and in no acute distress. Patient has a trach collar in place at 40% FiO2. There has been intermittent The trach done. Patient is taking oral diet as well as feedings per PEG tube is her oral diet is not enough to sustain her. She continues to have significant weakness and requires rehab. Social work is following closely and trying to find inpatient rehab facility for her. Patient's been afebrile, heart rate 98, blood pressure 166/108, pulse ox 99%. Hydralazine will be increased to 100 mg 3 times daily. Repeat blood work reveals WBC 11.4, hemoglobin 8.6, platelet count 246. Sodium 133, potassium 3.5, chloride 96, CO2 26, BUN 36 creatinine 3.17. Blood sugars running 113 260. REVIEW OF SYSTEMS Constitutional: No fever, no chills, no night sweats. No weight change. Profound weakness, + significant fatigue no lethargy. Reported daytime sleepiness. EENT: No headache. No loss of vision. No loss of Hearing. No nasal drainage or congestion. No epistaxis. No sore throat. Lungs: No shortness of breath, cough, no sputum production. No wheezing. Cardiovascular: No chest pain, no lower extremity edema. No palpitations. No paroxysmal nocturnal dyspnea. No orthopnea. No lightheadedness or dizziness. No syncopal episodes. Abdominal: No abdominal pain. Reports nausea, vomiting. No diarrhea. No constipation. No bloody or tarry stools. No loss of appetite. Genitourinary: No dysuria, increased frequency, urgency. No urinary retention. Minimal urine production Musculoskeletal: No myalgias. Noted significant muscle weakness, noted gait dysfunction, no frequent falls. No back pain. No neck pain. Integumentary: Positive wound-decubitus ulcer, trach wound. No rash or pruritus. No unusual bruising. No change in hair or nails. Neurologic: No aphasia. No facial droop. Noted change in mentation-back to baseline. No head injury. No headache. No paralysis. No paresthesia. Psychiatric: suspected depression. positive anxiety. Endocrine: Noted abnormal blood sugars-stable and monitored. PHYSICAL EXAMINATION Gen: This is is a 35-year-old black female, sitting in ICU bed. Patient appears to be in no acute distress HEENT: Head is atraumatic, normocephalic. Pupils equal, round. Sclerae is anicteric. Tracheostomy midline, trach collar. NECK: Supple. No JVD. No lymphadenopathy. No thyromegaly. LUNGS: Lung sounds are clear to auscultation. No intercostal retractions. HEART: Regular rate and rhythm. No murmur. geographic information systems director sinus tachycardia. ABDOMEN: Soft. Bowel sounds are present. No masses. No tenderness. EXTREMITIES: Trace bilateral pedal edema. No calf tenderness. NEUROLOGICAL: Patient is awake, alert, oriented x3 and able to follow commands, significant weakness. ASSESSMENT AND PLAN 1. Acute hypoxic respiratory failure secondary to Covid 19 pneumonia and possible bacterial pneumonia. Patient was intubated on September 11. She is status post 1 dose of Remdesivir and 1 dose of Tocilizumab. Continue Ventolin inhaler 4 times daily, Lovenox 30 mg subcu daily, supplements. Status post PEG tube and trach. Completed antibiotics. 2. Acute diabetic ketoacidosis secondary to Covid 19 pneumonia, uncontrolled with hyperglycemia. Levemir discontinued, continue scheduled NovoLog 7 units every 6 hours and continue NovoLog scale every 6 hours. 3. Metabolic encephalopathy secondary to Covid 19 and DKA. 4. Sepsis and septic shock secondary to Covid 19 pneumonia with multiorgan failure. Continue as in #1. 5. Acute metabolic acidosis secondary to acute DKA, Covid 19 and acute kidney injury. Renvela 1600 mg q6h. 6. Diabetes mellitus type 2 uncontrolled with A1c 13.6. Continue as above. 7. Hypophosphatemia status post replacement. 8. Hyperkalemia secondary to DKA, resolved. 9. Sinus tachycardia secondary to sepsis, volume deficiency. Patient is on Car dizem 60 mg 3 times daily, and Lopressor 50 mg twice daily. 10. Acute kidney injury secondary to ATN secondary to Covid 19 and DKA. Continue hemodialysis on Friday. 11. Citrobacter pneumonia versus MRSA pneumonia. Completed course of antibiotics. 12. Hypertension. 13. Morbid obesity with BMI of 53. 14. Situational depression and anxiety. Seroquel discontinued, continue Lexapro 10 mg daily and Xanax 0.25 mg twice daily as needed. 15. DVT prophylaxis. Lovenox. 16. GI prophylaxis. Protonix 40 mg IV push daily. 17. Stage IV pressure ulcer to trach site. Currently utilizing absorptive silver dressing. 18. Stage II decubitus ulcer to coccyx. 19. Critical illness polyneuropathy and myopathy. Continue physical therapy. 20. Anemia of chronic disease. Transfuse total of 3 units of packed RBCs, continue Aranesp 40 g every 7 days. CODE STATUS: Full code Prognosis guarded. DISCHARGE PLAN Inpatient Rehab facility once arrangements are completed Impression and plan of care have been directed as dictated by the signing ph ysician. Kimberly Boswell nurse practitioner acting as scribe for signing physician. Objective - Vital Signs Vital signs: Vital Signs Temp 97.6 F 11/13/20 08:00 Pulse 108 H 11/13/20 11:00 Resp 16 11/13/20 11:00 BP 167/106 11/13/20 11:00 Pulse Ox 91 L 11/13/20 11:00 Intake & Output 11/12/20 11/13/20 11/13/20 18:59 06:59 18:59 Intake Total 498 64 Balance 498 64 Weight 98.3 kg Intake: Oral 90 Tube Feeding 408 34 Other 30 Other: Voiding Method Bedpan # Voids 1 # Bowel Movements 1 ABP, PAP, CO, CI - Last Documented Arterial Blood Pressure 136/76 - Labs CBC & Chem 7: 11/13/20 03:17 11/13/20 03:17 Labs: Abnormal Lab Results - Last 24 Hours (Table) 11/12/20 11/12/20 11/12/20 Range/Units 11:21 16:34 21:00 WBC (3.8-10.6) k/uL RBC (3.80-5.40) m/uL Hgb (11.4-16.0) gm/dL Hct (34.0-46.0) % RDW (11.5-15.5) % Neutrophils # (1.3-7.7) k/uL Eosinophils # (0-0.7) k/uL Sodium (137-145) mmol/L Chloride (98-107) mmol/L BUN (7-17) mg/dL Creatinine (0.52-1.04) mg/dL Glucose (74-99) mg/dL POC Glucose (mg/dL) 176 H 146 H 113 H (75-99) mg/dL Calcium (8.4-10.2) mg/dL 11/13/20 11/13/20 11/13/20 Range/Units 03:17 03:17 06:55 WBC 11.4 H (3.8-10.6) k/uL RBC 3.12 L (3.80-5.40) m/uL Hgb 8.6 L (11.4-16.0) gm/dL Hct 27.4 L (34.0-46.0) % RDW 17.1 H (11.5-15.5) % Neutrophils # 7.9 H (1.3-7.7) k/uL Eosinophils # 1.4 H (0-0.7) k/uL Sodium 133 L (137-145) mmol/L Chloride 96 L (98-107) mmol/L BUN 36 H (7-17) mg/dL Creatinine 3.17 H (0.52-1.04) mg/dL Glucose 134 H (74-99) mg/dL POC Glucose (mg/dL) 160 H (75-99) mg/dL Calcium 10.3 H (8.4-10.2) mg/dL
[2020-11-13] MEDS: ACETAMINOPHEN TAB 325 MG TAB PO PRN (15:38)
[2020-11-13] MEDS: hydrALAZINE HCL 50 MG TAB PO SCH ×2 (16:41→22:52)
[2020-11-13 17:06] LABS: Glucose,Whole Blood 178 mg/dL (75-99)
--- NOTE | 2020-11-13 17:08 | PN ---
PROGRESS NOTE Patient is seen for followup for acute kidney injury. Patient remains hemodialysis dependent. She is being dialyzed on a Friday, Friday, Friday schedule. This morning patient reports she had some urine output. She states that she has passed urine about 3 times. PHYSICAL EXAMINATION: On examination today, blood pressure is 166/108, heart rate of 100 per minute, she is afebrile. Examination of the heart S1, S2. Examination of the lungs, decreased breath sounds at bases. Abdomen is soft, nontender. Examination lower extremity shows no significant edema. REGISTERED OCCUPATIONAL THERAPIST exam shows patient is awake, alert, oriented x3, following commands. LAB: Show hemoglobin 8.6, sodium 133, potassium 3.5, chloride 96, BUN 36, serum creatinine 3.17. ASSESSMENT: 1. Acute kidney injury oliguric, acute tubular necrosis, currently dialysis dependent. We will continue on a Friday, Friday, Friday schedule for hemodialysis. Continue to monitor for recovery of renal function although urine output is still quite low. 2. Anemia, multifactorial, no active bleeding noted maintained on Aranesp, status post multiple packed RBCs transfusion. 3. Status post COVID pneumonia and pneumonia with secondary bacterial infection. 4. Acute hypoxic respiratory failure status post trach and PEG. 5. Volume overload, currently significantly improved. PLAN: Next hemodialysis on Friday and 11/15/2020. MMODL / IJN: [id number] /
[2020-11-13 22:37] LABS: Glucose,Whole Blood 172 mg/dL (75-99)
[2020-11-14 06:51] LABS: Glucose,Whole Blood 192 mg/dL (75-99)
[2020-11-14] MEDS: SEVELAMER 800 MG TAB PO SCH ×4 (07:00→22:39)
[2020-11-14] MEDS: INSULIN ASPART (NovoLOG) 100 UNIT/ML VIAL SQ SCH ×8 (07:06→22:07)
[2020-11-14] MEDS: PANTOPRAZOLE 40 MG TABLET PO SCH (07:06)
[2020-11-14] MEDS: HYDROcodone/APAP 7.5-325MG 1 EACH TAB PO PRN ×2 (07:54→19:55)
[2020-11-14 11:49] LABS: Glucose,Whole Blood 159 mg/dL (75-99)
--- NOTE | 2020-11-14 12:19 | P.PN ---
Subjective Progress Note Date: 11/14/20 Principal diagnosis: Acute hypoxic respiratory failure secondary to COVID-19 pneumonia and ARDS secondary to COVID-19 pneumonia 03/15/2021 the patient is an 80% trach collar. Chest x-ray from yesterday showed forced COVID-19 ARDS related to chronic scarring and fibrosis. The p atient's pulse ox is 99% and FiO2 can be gradually weaned off. Noted the patient was given a trach button yesterday and she was able to tolerate 40s about 2 by nasal cannula. She is having issues with constipation. She was given Senokot and lactulose yesterday. She did have some limited bowel movement activity. Otherwise, she is taking oral intake. Enterofeeding is also running at 34 mL an hour. The plan was to gradually advance her oral intake and taken off the enteral nutrition. In terms of hemodialysis, she did not receive any treatment yesterday and we are holding off dialysis for today. Her urine output is once today and she just voided this morning. Her creatinine today is at 2.2. Her white cell count 5.9 with a hemoglobin of 7.7. Her sodium level is at 132. Her having issues with her blood pressure. She is on a combination of metoprolol and Cardizem. She was also started on hydralazine yesterday. Patient was reevaluated today on 11/13/2020, patient remains in the ICU, she is on 40% trach collar, patient is not receiving any IV fluids. Intermittent capping of the trach has been done. Patient is still undergoing physical therapy. Continues to have poor appetite and she is being fed via PEG tube. She is on Nepro 34/54 mL per hour. Overall the patient is doing well, but she remained generally weak, it is improving steadily. Remains on hemodialysis 3 ti mes per week. Her CBC is relatively normal hemoglobin is 8.6 electrolytes are normal BUN is 36 creatinine 3.17. Chest x-ray continues to show bilateral interstitial changes related to her COVID-19 pneumonia and ARDS, also some component of fluid overload is noted Patient was reevaluated today on 11/14/2020, patient is doing well, sitting at a bedside chair, tracheostomy has been Over 24 hours, patient is resting, she is on 3 L nasal cannula, and does not seem to be in any distress. O2 saturations 96%, no plans for hemodialysis today. However considering the patient is tolerating prolonged periods of time of capping the tracheostomy, I recommended decannulation today, and this was done at bedside uneventfully. Patient is still undergoing physical therapy, and we hope that by deconditioning the patient, that will probably speed up to transfer to a rehab facility. Patient remains on hemodialysis remains on Nepro via PEG tube, and overall the patient is doing much better. Breathing easier. CBC is relatively normal hemoglobin is 8.6 electrodes are normal BUN is 36 creatinine 3.17 Objective - Vital Signs Vital signs: Vital Signs Temp 99 F 11/14/20 08:00 Pulse 122 H 11/14/20 08:00 Resp 14 11/14/20 08:00 BP 136/79 11/14/20 08:00 Pulse Ox 95 11/14/20 08:00 Intake & Output 11/13/20 11/14/20 11/14/20 18:59 06:59 18:59 Intake Total 562 64 Output Total 2 1100 600 Balance 560 -1036 -600 Weight 98.3 kg Intake: Tube Feeding 442 34 Other 120 30 Output: Urine 600 Stool 1100 Hemodialysis 2 Other: Voiding Method Bedpan # Voids 1 # Bowel Movements 1 ABP, PAP, CO, CI - Last Documented Arterial Blood Pressure 136/76 - Exam GENERAL EXAM: Revealed a 35-year-old female, 3 L nasal cannula, and have t racheostomy has been capped Since yesterday. HEAD: Normocephalic/atraumatic. Tracheostomy is intact. EENT: PERRLA, EOMI, nonicteric, no neck masses, no JVD, tracheostomy is intact/capped CHEST: No chest wall deformity. Symmetrical expansion. LUNGS: Diminished breath sounds at the bases no rhonchi or wheezes CVS: normal S1 and S2, no S3 gallop, no murmur. ABDOMEN: Obese soft nontender no megaly no rebound no guarding. PEG tube is intact. EXTREMITIES: no clubbing edema or cyanosis. Good pulses bilaterally Psychiatric: Normal mood, affect, normal mental status examination SKIN: No rashes, CENTRAL NERVOUS SYSTEM: Generally weak otherwise unremarkable. - Labs CBC & Chem 7: 11/13/20 03:17 11/13/20 03:17 Labs: Abnormal Lab Results - Last 24 Hours (Table) 11/13/20 11/13/20 11/14/20 Range/Units 17:03 22:35 06:49 POC Glucose (mg/dL) 178 H 172 H 192 H (75-99) mg/dL 11/14/20 Range/Units 11:46 POC Glucose (mg/dL) 159 H (75-99) mg/dL Assessment and Plan Assessment: Impression: Acute hypoxic respiratory failure secondary to COVID-19 pneumonia and ARDS secondary to COVID-19 pneumonia, patient was transferred to the ICU on 09/11, intubated on 09/11, received REM on 09/11, received T OCI on 09/11, tracheostomy and PEG tube placement on 09/18 , patient is on trach collar. Weaned successfully from mechanical ventilation and liberated from mechanical ventilation. Acute kidney injury with complete shutdown of urine output/anuria, requiring hem odialysis. Remains on hemodialysis Acute diabetic ketoacidosis and COVID-19 pneumonia on her initial presentation. Sepsis secondary to COVID-19 pneumonia Type 2 diabetes poorly controlled. History of hypertension. Generalized anxiety disorder. Morbid obesity BMI of 54.2. Status post tracheostomy and PEG tube placement on 09/18. Critical illness polyneuropathy and myopathy, remains on physical therapy. Non sustained ventricular tachycardia. Tracheostomy decannulation on 11/14/2020. Recommendation: Discontinue/decannulate tracheostomy and this was done at bedside. Continue oxygen and titrate accordingly. Continue physical therapy. Continue metoprolol and Cardizem. Continue hydralazine. Continue hemodialysis. Still awaiting for placement in a residential or rehabilitation facility. Continue nutritional support. We will continue to follow. Time with Patient: Less than 30
[2020-11-14] MEDS ORDERED: bisacodyL 10 MG SUPP RECTAL STA (12:20)
[2020-11-14] MEDS: ASCORBIC ACID 500 MG TAB PO SCH ×2 (12:54→19:54)
[2020-11-14] MEDS: ESCITALOPRAM 10 MG TAB PO SCH (12:55)
[2020-11-14] MEDS: DILTIAZEM ORAL 60 MG TAB PO SCH ×3 (12:55→22:19)
[2020-11-14] MEDS: ENOXAPARIN 30 MG/0.3 ML SYRINGE SQ SCH (12:55)
[2020-11-14] MEDS: hydrALAZINE HCL 50 MG TAB PO SCH ×3 (12:55→19:54)
[2020-11-14] MEDS: METOPROLOL TARTRATE 50 MG TAB PO SCH ×2 (12:56→19:54)
[2020-11-14] MEDS: SENNOSIDES 8.6 MG TAB PO SCH ×2 (12:56→19:54)
[2020-11-14] MEDS: HYDROPHILIC CREAM 180 GM TUBE TOPICAL SCH (12:56)
[2020-11-14] MEDS: NYSTATIN 100,000 UNIT/GM POWD 15 GM TOPICAL SCH ×3 (12:56→22:22)
[2020-11-14] MEDS: LACTULOSE 20 GM/30 ML CUP PO SCH ×2 (12:57→19:54)
--- NOTE | 2020-11-14 13:01 | PN ---
PROGRESS NOTE Patient is seen for followup for acute kidney injury, currently hemodialysis dependent. However, urine output seems to be improving. Patient had about 600 mL of urine output. She is scheduled for hemodialysis tomorrow. We will continue to monitor for recovery of renal function. On examination today, patient is awake. Her trach has come out and she is able to talk. She has been eating as well. PHYSICAL EXAMINATION: Blood pressure this morning 136/79, heart rate 120 per minute she is afebrile. Examination of the heart S1, S2. Examination of the lungs, bilateral breath sounds are heard. Abdomen is soft, nontender. Examination lower extremities shows trace edema bilaterally. EXTRACORPOREAL CIRCULATION SPECIALIST exam grossly intact. LAB: Show sodium 133, potassium 3.5, BUN 36, creatinine 3.17, hemoglobin 8.6 g/dL. ASSESSMENT: 1. Acute kidney injury, initially oliguric, severe oliguric renal failure currently with improving urine output. The patient remains dialysis dependent. I will arrange for hemodialysis in a.m. However, she had about 600 mL of urine output. Therefore, we will continue to monitor for recovery of renal function. Serum creatinine had increased about 3.1 from 2 the day before, therefore, we will plan on dialysis tomorrow. 2. Status post COVID pneumonia and acute hypoxic respiratory failure. 3. Volume overload, currently improved. 4. Anemia multifactorial with no active bleeding noted, maintained on Aranesp and status post multiple packed RBCs transfusion. 5. Secondary bacterial pneumonia status post antibiotics. PLAN: Hemodialysis in a.m. Continue to monitor for recovery of renal function. MMODL / IJN: [id number] /
--- NOTE | 2020-11-14 13:30 | P.PN ---
Subjective Progress Note Date: 11/14/20 CHIEF COMPLAINT: COVID-19 pneumonia HISTORY OF PRESENT ILLNESS: Patient is in the ICU for COVID-19 pneumonia and respiratory failure. She is status post tracheostomy and PEG tube placement with Dr. Zhang. Patient is status post decannulation today by Dr. Mcfarland. She sitting up at bedside chair. She denies any abdominal pain. She is on tube feeds and tolerating them. She is tolerating a small amount of regular food. She is having small bowel movements. Denies any nausea or vomiting. Afebrile. Patient is currently a MedSurg overflow PHYSICAL EXAM: VITAL SIGNS: Reviewed. GENERAL: Well-developed in no acute distress. HEENT: No sclera icterus. Extraocular movements grossly intact. Moist buccal mucosa. Head is atraumatic, normocephalic. ABDOMEN: Soft. Nondistended. Nontender. PEG tube site clean dry and intact NEUROLOGIC: Awake and opens eyes ASSESSMENT: 1. Acute hypoxic respiratory failure with prolonged mechanical ventilation due to COVID-19 pneumonia status post tracheostomy placement. Now status post decannulation 2. Severe protein calorie malnutrition status post PEG tube placement 3. Pressure wound at tracheostomy site PLAN: -Continue supportive care -Continue wound care at tracheostomy site -Patient is stable for discharge from surgical standpoint -Continue to work with physical therapy -Encouraged oral intake -Social work continuing to work on discharge planning Physician Animal Humane Agent Supervisor note has been reviewed by physician. Signing provider agrees with the documented findings, assessment, and plan of care. Objective - Vital Signs Vital signs: Vital Signs Temp 99 F 11/14/20 08:00 Pulse 122 H 11/14/20 08:00 Resp 14 11/14/20 08:00 BP 136/79 11/14/20 08:00 Pulse Ox 95 11/14/20 08:00 Intake & Output 11/13/20 11/14/20 11/14/20 18:59 06:59 18:59 Intake Total 562 64 Output Total 2 1100 600 Balance 560 -1036 -600 Weight 98.3 kg Intake: Tube Feeding 442 34 Other 120 30 Output: Urine 600 Stool 1100 Hemodialysis 2 Other: Voiding Method Bedpan # Voids 1 # Bowel Movements 1 ABP, PAP, CO, CI - Last Documented Arterial Blood Pressure 136/76 - Labs CBC & Chem 7: 11/13/20 03:17 11/13/20 03:17 Labs: Abnormal Lab Results - Last 24 Hours (Table) 11/13/20 11/13/20 11/14/20 Range/Units 17:03 22:35 06:49 POC Glucose (mg/dL) 178 H 172 H 192 H (75-99) mg/dL 11/14/20 Range/Units 11:46 POC Glucose (mg/dL) 159 H (75-99) mg/dL
[2020-11-14 16:50] LABS: Glucose,Whole Blood 191 mg/dL (75-99)
[2020-11-14 20:32] LABS: Glucose,Whole Blood 105 mg/dL (75-99)
[2020-11-14] MEDS: diphenhydrAMINE 25 MG CAP PO PRN (22:39)
[2020-11-14] MEDS: ALPRAZolam 0.25 MG TAB PO PRN (22:40)
[2020-11-15 03:49] LABS: Anisocytosis Slight; Basophils % (A) 0 %; Eosinophils # (A) 0.9 k/uL (0-0.7); Eosinophils % (A) 8 %; HCT 24.9 % (34.0-46.0); HGB 7.7 gm/dL (11.4-16.0); Hypochromasia Marked; Lymphocytes # (A) 1.2 k/uL (1.0-4.8); Lymphocytes % (A) 11 %; MCH 27.4 pg (25.0-35.0); MCV 88.4 fL (80.0-100.0); Monocytes # (A) 0.7 k/uL (0-1.0); Monocytes % (A) 6 %; Neutrophils # (A) 7.8 k/uL (1.3-7.7); Neutrophils % (A) 71 %; Platelet Count 237 k/uL (150-450); Poikilocytosis Slight; RBC 2.81 m/uL (3.80-5.40); RDW 17.5 % (11.5-15.5)
[2020-11-15 04:08] LABS: Calcium 9.6 mg/dL (8.4-10.2); Potassium 3.6 mmol/L (3.5-5.1)
[2020-11-15 07:15] LABS: Glucose,Whole Blood 195 mg/dL (75-99)
[2020-11-15] MEDS: CHLORHEXIDINE GLUCONATE 15 ML CUP MUCOUS MEM SCH (07:17)
[2020-11-15] MEDS: hydrALAZINE HCL 50 MG TAB PO SCH ×3 (08:41→21:12)
[2020-11-15] MEDS: LACTULOSE 20 GM/30 ML CUP PO SCH ×2 (08:41→21:13)
[2020-11-15] MEDS: SENNOSIDES 8.6 MG TAB PO SCH ×2 (08:41→21:12)
[2020-11-15] MEDS: ENOXAPARIN 30 MG/0.3 ML SYRINGE SQ SCH (08:41)
[2020-11-15] MEDS: PANTOPRAZOLE 40 MG TABLET PO SCH (08:42)
[2020-11-15] MEDS: INSULIN ASPART (NovoLOG) 100 UNIT/ML VIAL SQ SCH ×8 (08:42→21:13)
[2020-11-15] MEDS: METOPROLOL TARTRATE 50 MG TAB PO SCH ×2 (08:42→21:12)
[2020-11-15] MEDS: ASCORBIC ACID 500 MG TAB PO SCH ×2 (08:42→21:12)
[2020-11-15] MEDS: SEVELAMER 800 MG TAB PO SCH ×4 (08:43→23:49)
[2020-11-15] MEDS: ESCITALOPRAM 10 MG TAB PO SCH (09:20)
[2020-11-15] MEDS: DILTIAZEM ORAL 60 MG TAB PO SCH ×3 (09:20→21:12)
[2020-11-15] MEDS: ONDANSETRON 4 MG/2 ML VIAL IVP PRN (10:17)
[2020-11-15] MEDS: HYDROPHILIC CREAM 180 GM TUBE TOPICAL SCH (10:25)
[2020-11-15] MEDS: NYSTATIN 100,000 UNIT/GM POWD 15 GM TOPICAL SCH ×3 (10:26→21:13)
[2020-11-15 11:32] LABS: Glucose,Whole Blood 136 mg/dL (75-99)
--- NOTE | 2020-11-15 11:40 | P.PN ---
Subjective Progress Note Date: 11/14/20 35-year-old female patient of Dr. Arroyo with past medical history of type 2 diabetes comes in with acute shortness of breath associated with high light sugars. Patient on admission was found to have a fever of 101.5 pulse rate 125 respiratory rate 20. Blood pressure 132/106. On chest x-ray obtained in the ER suggestive of bilateral infiltrates concerning for call with pneumonia. COVID PCR was positive. On admissions patient had an ABG with a pH of 7.14 pCO2 of 20, pO2 of 59, bicarb of 7. Patient's blood sugar on admission was 424 on assessment today patient's blood work patient had a sodium 135 potassium 5.4 chloride 123 bicarb less than 5 and creatinine 0.73. D-dimer was elevated on admission patient 9 28 patient given 1 L of IV fluids followed by normal saline running at 200 mL/h. Patient was positive for acetone on admission. She will anion gap closed and was switched to D5NS. Insulin drip was continued during the night and was switched to patient's home medication this morning. One dose of remdesiver was ordered. Apparently around noon, A- team was called on the patient secondary to hypoxia patient's oxygen saturation dropped to the 70s and 80s on 100% nonrebreather. Patient was switched to BiPAP on 18/12 and is doing better o FiO2 of 80%. ABG was obtained and ph was 7. 14 pCO2 of 28 bicarb of 7 pO2 of 17. Patient noted to have uncompensated metabolic acidosis with compensated respiratory alkalosis. Stat dose of 1 amp bicarb was given and followed by sodium bicarbonate drip. Insulin drip restarted. Patient's initiated on dexamethasone 6 mg IV twice a d ay. Potassium phosphate ordered as phosphorus is low. Patient's repeat blood gases suggest a pH of 7.25, CO2 32 pO2 of 72 bicarb 14. I will not normal saline at 100 mL/h as patient's anion gap has increased. Patient given 1 dose of 2 mg of morphine with improvement in respiratory rate. One dose of Ativan 0.5 mg was given. Xanax 0.25 twice a day along with Ativan 0.5 IV every 6 hours ordered for the patient. Vitals were evaluated patient pulse 129 [id number]. She was moved to the ICU. Precedex drip was initiated. Lopressor was initiated at 25 twice a day. Metoprolol tartrate 5 mg IV every 6 hours. Systolic blood pressure more than 160. Started chest x-ray was obtained and suggest stable bilateral consolidation suggestive of COVID-19 pneumonia. 09/12 patient is seen in the ICU is currently mechanically ventilated and sedated on vent settings of respiratory rate 36, tidal volume 375 FiO2 80% PEEP of 18.. Vital signs reviewed patient had a temp of 100.4 pulse 150 respiratory rate 36 oxygen saturation 95% on 80% on fio2 .'s labs are reviewed which patient had a d-dimer 1.84 that is increased to 14.3. Arterial Blood gas suggest ph 7.35, CO2 40, po2 62, . Her BMP suggest a sodium 135 potassium 3.7 chloride 112 bicarb 21 creatinine 1.57 for calcitonin is 3.5 CRP is increased from 8.78.2 LDH is increased to 2614. Patient remains on Pneumovax, propofol drip. Lovenox increased to 50 subcu twice a day. Patient received 2 L of IV fluids. Continue IV fluids at 100 mL/h. Bicarb drip discontinued patient initiated on Zosyn 3.375 every 8 hours. Continue insulin drip at 4 units per hour. Patient is currently in prone positioning 09/13: Patient evaluated in the ICU remains on Ventilation continues to be sedated, in prone position. Vent settings are respiratory rate 36, tidal vital 375, FiO2 70% PEEP of 18. ABG shows pO2 of 82, PCO2 of 39, pH is 7.19. Latest labs show WBC 11.1, hemoglobin 13.2, d-dimer still pending, but yesterday was up to 14.3. Creatinine up to 3.4, BUN 24 sodium 137, potassium 4.0. Patient's urine output has been low, nephrology on consult. Bicarb drip increased to 100 miles an hour, receiving another liter of normal saline, she did have a ultrasound that showed unremarkable bilateral kidneys. Repeat chest x-ray showed bilateral lung infiltrates that are stable. Anion gap has closed, will start Lantus 10 units at at bedtime Novolog every 6 hours. 09/14: Patient is seen in the ICU, still currently mechanically ventilated and sedated. She continues in the prone position. Her oxygen quickly drops if she is not in prone. Patient's kidney function has worsened. Laboratory values show creatinine of 4.87, BUN 33, LDH 2191, C-reactive protein 2.7. ABG shows pH 7.32, pO2 of 60, pCO2 43. Patient is making almost no urine overnight. Nephrology is following patient continues on cefepime for urinary tract infectio n, culture is still pending. Vascular has been consulted for placement of temporary hemodialysis catheter for plans for dialysis. 09/15: Patient evaluated in the ICU, continues to be mechanically ventilated and sedated on assist control ventilation rate of 36, tidal volume 375, FiO2 100% and PEEP of 18. ABG today shows pO2 58, pCO2 of 45, and pH 7.35. She continues on tube feedings. Yesterday patient underwent ultrasound-guided right internal jugular non-tunneled hemodialysis catheter placement. Patient underwent hemodialysis treatment last night and plans have another hemodialysis treatment today. She continues to make almost no urine. She continues on cefepime for antibiotic coverage, and continues on Decadron and Lovenox. 09/16: Patient seen on follow-up remains in the ICU mechanically ventilated and sedated. She continues on assist control rate of 36, tidal volume 375, FiO2 10 0% and PEEP of 20. PEEP had to be increased due to patient had to be in supine position for dialysis, will go back to prone position once dialysis is complete. ABG shows pH 7.32, pCO2 49, PaO2 61. Laboratory values showed WBC 11.2, hemoglobin 11, sodium 134, creatinine 4.44, BUN 38. Urine culture shows no growth, blood cultures show no growth to date. Repeat chest x-ray shows bilateral pleural effusions, correlate for ARDS, pulmonary edema, diffuse pneumonia, findings are stable from last exam. Patient does not require any pressors, blood pressure 133/57, heart rate 78. 5/16: Patient was evaluated in the ICU today for follow-up. She continues to be intubated and on mechanical ventilation. Current vent settings are tidal volume 375, FiO2 100% and PEEP of 20. ABG shows pH 7.37, pCO2 40, pO2 102. She continues with intermittent prone positioning. Patient continues to have almost no urine output, maintained on dialysis. Patient received dialysis yesterday without complication. Laboratory values revealed WBC 10.3, hemoglobin 10.4, sodium 132, potassium 3.1, BUN 33, creatinine 4.29, LDH 1913, C-reactive protein 1.3. Urine and sputum cultures are negative, blood cultures show no growth to date. Consult placed to dietary to start TPN[ ] 09/18: She remains in the intensive care unit intubated and on mechanical ventilation with tidal volume 375, FiO2 60 and PEEP of 20. Patient is being prone to daily at approximately 16 hours per day. Pulmonary medicine has added in Dr. Zhang to do PEG tube and trach today. Patient is not on vasopressors. Repeat blood work reveals WBC 12.6, hemoglobin 9.8, platelet count 212. Sodium 133, potassium 3.2, chloride 102, CO2 21, BUN 35 and creatinine 4.12. Blood sugar 126. Patient underwent hemodialysis yesterday with removal of 2 L and is scheduled again today with goal of 2-3 L and is scheduled again tomorrow. 09/19: She is scheduled for hemodialysis today and is off fentanyl temporarily. Patient is status post trach and PEG tube yesterday. And she remains on mechanical ventilation. Pulse ox 93-95%. She has been afebrile, heart rate 64, respiratory rate 36, blood pressure 115/50. Fentanyl is off to improve blood pressure for hemodialysis which is scheduled for today. Contacted vascular surgery about permanent hemodialysis catheter. Repeat blood work reveals WBC 14.3, hemoglobin 9.6, platelet count 200. D-dimer 6.48. LDH 1686. C-reactive protein 1.1. BUN 34 creatinine 3.81. Sodium 130, potassium 3.5, chloride 101, CO2 18. Blood sugars running between 101 198. Plan is to wean off Pneumovax today. Patient remains on insulin drip. Repeat chest x-ray reveals bilateral multifocal confluent opacities consistent with COVID-19. Some improved aeration periphery of the left lung and worsening opacities throughout the right lung. 09/20: She remains in the intensive care unit on mechanical ventilation. She has been afebrile, heart rate 65, respiratory rate 37, blood pressure 121/70, pulse ox 91-99%. Repeat blood work reveals WBC 14.5, hemoglobin 9.1, platelet count 216. D-dimer 6.13. Sodium 133, potassium 3.1, chloride 102, CO2 18, BUN 35 and creatinine 4.27. Blood sugars running between 128 and 143. LDH 1717. C- reactive protein 1.7. Patient remains on insulin drip which will be transit ioned to NovoLog scale every 6 hours. Patient is scheduled for permanent hemodialysis catheter placement today with vascular surgery. Repeat chest x-ray reveals stable diffuse bilateral interstitial and airspace disease. Possible small right effusion. His work is following for transfer [facility]. Do not anticipate discharge until next week. 09/21: Patient is undergoing hemodialysis. She remains on mechanical ventilation with tidal volume 375, FiO2 down to 45 and PEEP was decreased to 15. Patient is continued on propofol, fentanyl drips. She is on tube feedings at goal. Patient was taken off insulin drip yesterday and on scale only but blood sugars are running in the 200s, Levemir scheduled at bedtime will be added. Other blood work reveals WBC 13.3, hemoglobin 8.7, platelet count 192. Sodium 137, potassium 3.6, chloride 107, CO2 18, BUN 34 and creatinine 4.21. Repeat chest x-ray is stable. 09/22: She remains in the intensive care on mechanical ventilation with tidal volume 375, FiO2 of 50 and PEEP of 10. Pulse ox is running 96%. She is afebrile, heart rate in the 50s, respiratory rate 36, blood pressure 100/64. Repeat blood work reveals WBC 16.5, hemoglobin 8.9, platelet count 213. Sodium 134, potassium 3.7, chloride 103, CO2 21, BUN 34 and creatinine 3.89. Blood sugars running in the 200s to 324. Levemir increased to 16 units at bedtime and continue NovoLog scale every 6 hours. Patient is on tube feedings at goal. She has a Haley catheter in with a scant amount of dark/brown urine. Fecal management system is in place. Repeat chest x-ray reveals diffuse bilateral airspace infiltrates persist unchanged. Patient is scheduled for hemodialysis tomorrow morning on Friday. 09/23: Patient remains on mechanical ventilation with tidal volume 3.75, FiO2 50 and PEEP of 10. monitor technician sinus rhythm. She has no urine output. Fecal management system is in place. She is undergoing dialysis at this time with plan for removal of 2-1/2 L. She has been afebrile, heart rate in the 50s, respiratory rate 36, blood pressure 108/76 and pulse ox 89%. WBC 13.6, hemoglobin 9.1, platelet count 194. Sodium 136, potassium 3.0 and was replaced, chloride 106, CO2 21, BUN 49 creatinine 5.31. Blood sugars are running between 182 and this morning 194. Patient was still in the 200s and 300s. Levemir last evening was increased to 16 units. Patient remains on propofol and fentanyl drips. Lovenox was increased to 60 mg twice daily. 09/24: PEEP was increased today to 20, tidal volume is at 375 and FiO2 of 50%. Patient has been afebrile. She has been started on levo fed. Repeat chest x- ray reveals bilateral multifocal confluent opacities consistent with Covid 19 or ARDS redemonstrated. Nephrology will plan dialysis for tomorrow for 3 L. Patient remains on propofol fentanyl and Nimbex. WBC 12.5, hemoglobin 9.8, platelet count 161. D-dimer 13.3. Sodium 132, potassium 3.4, chloride 102, CO2 20, BUN 48 and creatinine 4.67. Blood sugars extremely elevated to 96-409. LDH 2217. 09/25: Patient remains in the intensive care unit on mechanical ventilation with tidal volume 375, FiO2 50 and PEEP of 20. Patient is afebrile, heart rate 61, respiratory rate 36, blood pressure 102/56, pulse ox 97%. Repeat blood work reveals WBC 9.3, hemoglobin 8.5 and platelet count 171. Sodium 130, potassium 3.7, chloride 100, CO2 20, BUN 61 creatinine 5.65. Blood sugars have been elevated up to 455. Levemir increased to 20 units twice daily, NovoLog 5 units every 6 hours and continue NovoLog scale. Patient is scheduled for hemodialysis today. Repeat chest x-ray reveals bilateral multifocal and confluent opacities. Decadron and Lovenox dosing change by pulmonary. Patient is off norepinephrine. 09/26: Patient remains in the intensive care unit on mechanical ventilation with tidal volume 375, FiO2 50 and PEEP of 15. She has been afebrile, heart rate 91, blood pressure 114/68, pulse ox 99%. monitor technician sinus rhythm. 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 Sodium 134, potassium 3.6, chloride 102, CO2 22, BUN 41 creatinine 4.21. Patient has improved blood sugars this morning running 150s and 160s. Diabetic medications were adjusted yesterday. Patient is awake and alert and interacting. Yesterday, patient had PICC line inserted by interventional radiology. Repeat chest x-ray reveals diffuse airspace infiltrates in both lung ann appear to progress slightly in the interval. 09/27: Patient remains in intensive care unit on mechanical ventilation with improvement of settings with tidal volume 375, FiO2 decreased to 40 and PEEP decreased to 10. Patient is on hemodialysis every other day and plan to remove 3 L today. Patient is more awake and alert. She is slow to respond but is able to follow simple commands. Blood sugars are running between 84 and 123. Repeat blood work reveals WBC 7.1, hemoglobin 8.1, platelets 152. Sodium 135, potassium 3.6, chloride 103, CO2 21, BUN 53 and creatinine 5.88. Repeat chest x-ray revealed cardiomegaly and pulmonary edema. Patient is on tube feedings:. Patient is not require vasopressors and is off sedation. Fecal management system remains in place for brown liquid stool. C. difficile was negative. 09/28: Patient remains on mechanical ventilation with tidal volume 375, FiO2 increased to 80 and PEEP increased to 18. Patient had a rough night was very anxious, no pain. Xanax 0.25 mg 3 times daily was added. There is concern for pulmonary embolism for which patient was started on heparin drip, she is unable to undergo CAT scan. Venous Doppler bilateral lower extremities was nondiagnostic due to extensive edema in obese patient but minimal imaging of the popliteal veins does show flow. Repeat echocardiogram has been ordered. Cefepime has also been ordered at 1 g IV piggyback every 24 hours as well as vancomycin, pharmacy dosing. Patient is back on fentanyl drip, propofol drip and norepinephrine. Blood sugars are elevated and insulin Levemir will be increased to 25 mg twice daily. Ferrlecit infusion has been ordered by nephrology for 4 days. Patient is undergoing hemodialysis today.temperature max 100.2, heart rate 134, respiratory rate 34, blood pressure 120/65, pulse ox 94%. monitor technician is sinus tachycardia. Repeat blood work reveals WBC 16.9, hemoglobin 9.7, platelet count 216. D-dimer 8.81. Sodium 134, potassium 3.8, chloride 99, CO2 25, BUN 43 and creatinine 5.36. Blood sugars in the 200s. AST 40. 09/29 Patient had declined more last 48 hours require more sedation, patient is doing hemodialysis, respiratory failure is quite bit worse this time. Patient was inquired the pain is well back on fentanyl drip. Her vent set up with PEEP is limited but higher. No new finding on culture and her chest x-ray continues shows diffuse infiltrate persistent although there is a moderate interval improvement. 09/30 patient's was seen and evaluated. PEEP was reduced to 11 as patient is maintaining good saturation at the current vent settings. 10/01 patient was seen at bedside. She is currently on assist control rate of 28 white tidal volume 350 FiO2 50% and PEEP of 10 which has been reduced by pulmonary as patient name cleaning her oxygen saturation. Arm blood gas was obtained with a pH of 7.35 pCO2 37 pO2 of 63. She remains hemodynamically stable with no need for pressors. Labs were reviewed patient's BUN is 29 creatinine 3.93 glucose 122 albumin 2.2 sodium 131 chloride 19 hemoglobin is downtrending with a Hb of 7.3 no leukocytosis 7.1. Patient's urine output is m inimal at this time. Her rate has increased to 129 and is currently on positive fluid balance even with dialysis. Last dialysis was done yesterday. Continue enteral feeding currently at goal. Antibiotic has been discontinued and continues to remain on DEXA methicillin 4 mg IV daily. 10/02 patient continues to be on trach support with mechanical ventilation. Patient was evaluated by design sales consultant and was switched to VC control as patient was noted to be double stacking on and off throughout the night. Respiratory rate continue to 28 tidal volume increased to 400 with a PEEP for Dr. Downey. Venkatesh gregorio is maintaining oxygen saturation 91% on the current setting. According to the nurse bedside patient saturation drops significantly or she is moved or her sedation is dropped. Patient is currently on propofol drip, fentanyl drip. She did underwent dialysis today and was able to maintain her low pressure without the need of pressors. Labs reviewed today suggest a WBC of 6.7 hemoglobin of 7 .0 and d-dimer 3.9 bicarb 17 BUN 38 creatinine 4.8. LDH is 964. Sodium 1:30 likely secondary to volume overload. Urine sodium and urine osmolality ordered. Patient's glucose this morning is 146. Continue to remain on enteral feeding. Urine output is reduced. Fall catheter will be placed today. Continue to remain on dialysis. 10/03: Patient remains on mechanical ventilation and is back on propofol and fentanyl drips. Patient is currently on VC control with tidal volume 400, FiO2 55 and PEEP of 12. Patient still is not making any urine and is dialysis dependent with next treatment planned for tomorrow with removal of 3-3-1/2 L. PEG tube feedings are at goal. Fecal management system remains in place. At the time of evaluation, patient is off levophed. Repeat chest x-ray reveals s table diffuse bilateral airspace disease correlate for ARDS, pulmonary edema or diffuse pneumonia. Temperature max last evening was 101. Temperature currently 99, heart rate 106, respiratory rate 32, blood pressure 101/50, pulse ox 86%. Repeat blood work reveals WBC 6, hemoglobin 7.4, platelet count 160. D-dimer 4.05. Sodium 133, potassium 3.5, chloride 100, CO2 23, BUN 31 creatinine 3.8. Blood sugars are running between 100 and 170. Ferritin 1514. Liver function test normal. LDH 1016, C-reactive protein 13.6. Prognosis remains guarded. 10/04: Patient remains intubated on mechanical ventilation with tidal volume 400, FiO2 65, PEEP of 14. Patient continues to run fevers and repeat blood culture and urine and urine culture ordered for today. Haley catheter has been removed this patient has no significant urine output at about 20 mL per shift. BladderScan is monitored for greater than 300 and the patient is straight cathed. Hemoglobin is 6.8 and she has been ordered 41 unit of packed RBCs today. She is currently on propofol and fentanyl drips. She is scheduled for hemodialysis today. WBC 4.5, hemoglobin 6.8, platelet count 151. D-dimer 3.28. Sodium 132, potassium 4.1, chloride 100, CO2 22, BUN 37 creatinine 4.74. Blood sugars running between 97 and 110. Ferritin 1801. LDH 859. C-reactive protein 14.4. Chest x-ray reveals correlate for pneumonia, edema, ARDS. Prognosis remains guarded. 3: Patient remains in intensive care unit currently on mechanical ventilation with tidal volume 400, FiO2 was increased to 100 and PEEP is at 14. She continues to run fevers which have worsened with temperature max 103.1. She has been tachycardic in the 130s, blood pressure is marginal but not on vasopressors. Pulse ox currently 92%. Repeat blood work reveals WBC 5.5, hemoglobin 7.6, platelet count 190. D-dimer 2.7, ferritin 1770, LDH 932, C- reactive protein 21.4. Blood sugars are running between 100 1669. Electrolytes are normal. BUN 27 and creatinine 3.79. Pancultures were done yesterday including a straight cath for urine culture, sputum culture and blood culture. Arterial line was removed as well as midline. She is currently on propofol, fentanyl and started on Nimbex today. 10/06: Patient remains in the intensive care unit. Today patient in prone position and remains on mechanical ventilation with tidal volume 350, FiO2 65 and PEEP of 14. Her last documented fever was yesterday at 2 PM. Heart rate is in the 120s, respiratory rate 32, pulse ox 88-92%. CBC is unremarkable. Electrolytes are normal. BUN 30 creatinine 2.93. Blood sugars are running between 135 and 164. Cultures from October 04: Blood culture no growth, sputum culture finalized, urine culture finalized. Catheter tip culture is in process. Repeat chest x-ray shows bilateral interstitial infiltrates. Patient is on tube feedings of Nepro at goal of 30 ML's per hour. Patient underwent dialysis yesterday and is scheduled for repeat dialysis today. 10/07: Patient maintains in the intensive care unit intubated and on mechanical ventilation. She is receiving hemodialysis this morning has been every day. Plan is to remove 2-1/2 L today. Vent settings have changed today with tidal volume 350, FiO2 was increased to 100% and PEEP remains at 14. She has been continued on Nimbex, fentanyl, norepinephrine and propofol. Plan is to prone position patient following dialysis. Repeat chest x-ray reveals worsening interstitial infiltrates. BUN is 26 and creatinine 2.59. LDH 955, C-reactive protein 22.1. Prognosis remains poor. 10/08: Patient remains in intensive care unit intubated and on mechanical ventilation with tidal volume 350, FiO2 60, PEEP of 14. She is pronating today. She is scheduled for hemodialysis on a daily basis. She has been afebrile, heart rate 112, respiratory rate 36, blood pressure 161/88, pulse ox 93%. Re peat blood work reveals WBC 9.9, hemoglobin 9.1, platelet count 320. Sodium 133, potassium 5.3, chloride 100, CO2 20, BUN 29 creatinine 2.44. Blood sugar running between 102 and 139. LDH 1026, C-reactive protein 19.7. 10/09: Patient is undergoing dialysis this morning. She continues to be intubated and on mechanical ventilation with tidal volume 350, 270 and PEEP of 14. Patient is also on propofol, Nimbex, norepinephrine and fentanyl drips. Repeat chest x-ray reveals persistent bilateral multifocal and confluent opacities consistent with Covid 19. She is afebrile, heart rate 116, respiratory rate 36, blood pressure 120/65, pulse ox 91%. Repeat blood work reveals WBC 5.4, hemoglobin 9.2, platelet count 216. D-dimer 2.67, ferritin 2568, LDH 794, C- reactive protein 13.9. Blood sugars have been running 90-104. Creatinine 1.64. She is on daily dialysis treatment. 10/10: She remains in the intensive care unit. She is now out of isolation as a repeat Covid test came back negative. She remains on mechanical ventilation with tidal volume 350, FiO2 70 and PEEP of 14. Patient is also on Nimbex, propofol, norepinephrine, fentanyl drips. She is on PEG tube feedings at goal and tolerating well. Repeat blood work reveals WBC 7.8, hemoglobin 7.5, platele t count 267. Sodium 139, potassium 3.9, chloride 109, CO2 20, BUN 20 creatinine 1.29. Blood sugars are running between 76 and 102. Scheduled NovoLog decreased to 3 units. Repeat chest x-ray reveals moderate cardiomegaly and continued pulmonary edema. Slight interval improvement. Patient is continued on daily hemodialysis. 10/11: Patient remains in intensive care unit on mechanical ventilation with tidal volume 325, FiO2 70, PEEP 14. She is currently being prone. She underwent hemodialysis this morning with removal of 4 L of fluid with plan to continue daily treatment. She is currently on Nimbex, fentanyl and propofol. No vasopressor at this time. Fecal management system remains in place. She is on tube feedings currently at hold due to prone positioning. Patient has been afebrile, heart rate 116, respiratory rate 36, blood pressure 100/58, pulse ox 93-96%. Repeat blood work reveals WBC 9.3, hemoglobin 8.1, platelet count 276. Sodium 136, potassium 4.3, chloride 103, CO2 20, BUN 20 creatinine 1.14. Blood sugars running between 133 and 202. 10/12: Patient remains in the intensive care unit. She is undergoing hemodialysis this morning. She's been afebrile, heart rate in the 120s, respiratory rate 32, blood pressure 102/65. She is not on vasopressors. She is continued on Nimbex, fentanyl and propofol. Vent settings are currently tidal volume 325, FiO2 70, PEEP 14. Total platelet count 273. Sodium 133, potassium 4.7, chloride 100, CO2 19, BUN 21 creatinine 0.91. Blood sugars running between 121 and 143. 10/13: Patient remain in the ICU she is on hemodialysis daily, she is still on the vent with a PEEP of 14 and FiO2 of 70. Her oxygenation is marginal pulse rate still high. Patient had scratched cornea was seen in ophthalmology decided to keep doing eyedrops along with eye patch at this point. Prognosis still very bad this point. 10/14: She remains on mechanical ventilation with tidal volume 325, FiO2 70% and PEEP of 14. She did require label fed last evening for about 6 hours. She did not tolerate pronating yesterday. She is undergoing dialysis this morning with plan for removal of 4 L. Blood sugars have been low and IV fluids changed to D 10 until blood sugars have recovered. Levemir and scheduled NovoLog discontinued. Patient is on tube feedings at goal there's been no change in this. 10/15 patient remains on mechanical ventilation in the intensive care unit. FiO2 still at 70%, PEEP of 18. Blood sugars have improved since medications were adjusted. White blood cells 33.9, hemoglobin 8.5, sodium 135, BUN 19, creatinine 0.96. Patient to receive dialysis again today. Patient did run a low-grade fever throughout the night and pro calcitonin level is ordered. Chest x-ray showed continued diffuse bilateral airspace disease. Patient remains on tube feedings at goal. 10/16: Patient remains on mechanical ventilation with tidal volume 300, FiO2 70, PEEP of 15. Fecal management system is out. She is currently on low dose of norepinephrine. She is also on fentanyl drip, propofol drip, rocuronium drip. Heart rate is running in the 130s, sinus rhythm, blood pressure 121/63, pulse ox 95%. Patient is been afebrile. Repeat blood work reveals WBC 18.9, hemoglobin 7.5, platelet count 291. Sodium 135, potassium 4.2, chloride 101, CO2 19, BUN 25 and creatinine 1.36. Blood sugars are running between 143 and 199. Patient is on scale insulin only. Repeat chest x-ray reveals persistent bilateral multifocal and completed opacities consistent with Covid 19. 10/17: Patient remains on mechanical ventilation with tidal volume 300, FiO2 50, PEEP of 14. She is currently receiving hemodialysis. The patient is having yellow-colored drainage from the trach site. This is going to be culture today. Repeat blood work reveals WBC of 24, hemoglobin 7.3 and platelet count 310. Sodium 136, potassium 4.1, chloride 101, CO2 19, BUN 24 creatinine 1.43. Blood sugar 139. Capillary blood glucose running 147 and 189. Repeat chest x-ray is unchanged. Patient had increased respiratory rate 40s and 50s with oxygen saturation of 87 and now was increased and Seroquel added this morning. Prognosis remains guarded. 10/18: Patient remains on mechanical ventilation with tidal volume 300, FiO2 60, PEEP has been decreased to 12. Patient will need a PEEP of 8 in order to transfer to long-term care. She is currently on fentanyl drip and Precedex drip. Patient is tracking when her name is stated. She seems to be slightly i mproved today. Patient has been afebrile, heart rate 106, respiratory rate 32, blood pressure 110/61, pulse ox 98%. Repeat blood work reveals WBC 30.3, hemoglobin 7.2, platelet count 350. Sodium 139, potassium 4.2, chloride 103, CO2 20, BUN 23 creatinine 1.79. Blood sugars are increasing running up 299. Patient will be placed on Levemir. Secretions from tracheotomy sent for culture and in process. She is currently undergoing hemodialysis. 10/23: Patient remains in the intensive care unit on mechanical ventilation with tidal volume 300, FiO2 65 and PEEP of 10. monitor technician has been in a sinus rhythm. Patient does open her eyes and appears to be tracking. Blood sugars have been elevated. Levemir will be increased to 40 units daily and scheduled NovoLog increased to 12 units and continue NovoLog every 6 hours per scale. Patient is receiving hemodialysis today. She is not currently on vasopressors. Patient is on Precedex drip only. Antibiotics in the form of cefepime were started on October 18. Patient has been afebrile, heart rate 126, respiratory rate 36, blood pressure 163/105. Pulse ox 91%. Repeat blood work reveals WBC 16.0, hemoglobin 7.2, platelet count 208. Electrolytes are within normal limits. BUN 62 and creatinine 2.43. Blood sugars running between 259-321. Most recent blood culture from October 22 is no growth at 24 hours. Repeat chest x-ray reveals cardiomegaly and persistent bilateral pulmonary edema. 10/24: Patient is awake, eyes are open and tracking, she is able to follow simple commands. Severe generalized weakness noted. Precedex gtt has been discontinued. Patient is receiving hemodialysis. Her blood sugars have remained elevated for which Levemir increased to 25 units twice daily along with 15 units of NovoLog every 6 hours along with scale. Tidal volume 330, FiO2 60, PEEP of 8. factory manager and social services director following closely. Anticipate possible discharge by the end of next week to long-term care facility. 10/25: Patient remains in the intensive care unit on mechanical ventilation. Tidal volume 350, FiO2 60, PEEP 8. She is receiving hemodialysis this morning. Her heart rate remains elevated in the 130s. Pulmonary as started her on Cardizem at 60 mg 3 times daily which has not had any improved effect. We'll start the patient on Lopressor 25 mg twice daily. Patient has been afebrile, heart rate respiratory rate 32, blood pressure 151/91, pulse ox 98%. Patient is been transfuse 1 unit of packed RBCs today. Patient's mental status is improving and patient is able to follow simple commands. WBC 12.2, hemoglobin 6.3, platelet count 196. Sodium 135 otherwise looked lites are normal, BUN 48 creatinine 1.99. Blood sugars are running between 120 and 172. Levemir has been increased to 30 mg twice daily continue 15 units of NovoLog every 6 hours with scale. 10/26: Patient remains in intensive care unit, on mechanical ventilation with tidal volume 375, FiO2 50, PEEP of 8. Patient's heart rate remains elevated 120s and Lopressor increased to 50 mg twice daily. Patient seems to be quite anxious and depressed. We will decrease Seroquel to 50 mg twice daily and start patient on Lexapro. Patient received her first dose of Xanax this morning but this did not seem to help heart rate either. She has been afebrile, heart rate 128, blood pressure 149/79, pulse ox 93%. Repeat hemoglobin 7.3. Sodium 135, potassium 3.9, chloride 90, CO2 30, BUN 45 and creatinine 1.94. Blood sugar are improved running between 117-194. We will make further adjustments to insulin and to increase long-acting to 35 units twice daily and decrease NovoLog scheduled to 7 units and continue NovoLog scale. There are problems with patient's trach and consequently placed with [facility]. General surgery to reevaluate trach. 10/27: Patient is complaining of nausea today. Concerned that this is related to Lexapro. We will further decrease Seroquel to 50 mg at bedtime. Patient is being bladder scanned and last bladder scan wasn't 125 mL. She does not have Haley catheter. No fecal management system. She is having a bowel movement about 3 per day. Plan is for CPAP trial today. She is currently on mechanical ventilation with tidal volume 375, FiO2 50 and PEEP of 8. She has been afebrile, heart rate 105 which is much improved from the last few days. Blood pressure 145/88, pulse ox 94%. There is a new consult in place for Dr. Clemente regarding exchanging the trach and possible debridement at site. WBC 11.4, hemoglobin 8.2, blood count 218. Sodium 136, potassium 4.1, chloride 97, CO2 31, BUN 47 creatinine 1.97. Blood sugars running between 129 and 204. We have changed long acting insulin to 35 units twice daily and continue NovoLog 7 units every 6 hours and scale every 6 hours. Nephrology may be decreasing frequency of dialysis treatments. Anticipate probable discharge to long-term care next week. 10/28: Patient was complaining of nausea today which has resolved. CPAP trial wi ll continue today. She is currently on mechanical ventilation with a tidal volume 375, FiO2 of 50, PEEP of 8. She is afebrile, heart rate 108 which continues to show improvement. Blood pressure 133/87, pulse ox 99%. Patient is able to follow commands. And answers appropriately with nodding her head. WBC 10.5, hemoglobin 8.0, potassium 4.6, BUN 46, creatinine 1.96. Patient is currently receiving hemodialysis. 10/29: Patient was found sitting up in bed. Able to answer some questions approp riately. Utilizing kim. Able to follow commands. Ann over elevated blood sugars. Levemir 35 units twice a day will continue at this with a 7 unit coverage. Patient remains afebrile. Heart rate 102, respirations 29, blood pressure 124/74, pulse ox 97% on mechanical ventilation. Mechanical ventilation settings with a tidal volume 375, FiO2 of 50 and a PEEP of 8. Family has been into see patient. Hemodialysis will be held today. 10/30: Patient remains in the ICU on mechanical ventilation. She is not requiring pressure support. She is on CPAP support. She is receiving hemodialysis this morning with plan to start a Friday schedule this week. Blood sugars are stable and running between 140 and 184. She is on tube feedings at goal and having bowel movements every 12 hours. Repeat blood work reveals WBC 8.9, hemoglobin 10.2, platelet count 258. Sodium 133, potassium 5.0, chloride 97, CO2 23, BUN 69 creatinine 2.67. 10/31: Patient is seen today in intensive care unit. She remains on mechanical ventilation with tidal volume 375, FiO2 45 of PEEP of 5. Patient is found sitting in a chair working with physical therapy. Patient is noted to have left arm weakness without pain and good sensation. She is not receiving dialysis today and will be started on Friday regime. Patient's heart rate is better controlled in the 80s, blood pressure 113/65, pulse ox 99%. Patient is been afebrile. Patient has been on cefepime. Repeat blood work reveals WBC 9.3, hemoglobin 6.9 and patient is transfused 1 unit of packed RBCs today. Platelet count 248. Electrolytes are within normal range, BUN 38 and creatinine 2.04. Her blood glucose running between 130 and 193. AST 38. Social work is working with the daughter regarding discharge planning. 11/01: A she was undergoing dialysis with plan for 3 L removed today and dialysis is scheduled Friday. She is in bed and appears to be comfortable. She is able to talk and express herself and is cognitively intact. She remains on mechanical ventilation. She has been afebrile, heart rate 107, blood pressure 115/85, pulse ox 99%. Repeat blood work reveals WBC 8.5, hemoglo bin 7.5, platelet count 278. Sodium 136, potassium 4.8, chloride 100, CO2 27, BUN 55 creatinine 2.81. Blood sugar running between 114 and 185. Calcium 10.3, total bilirubin 0.2, AST 34, ALT 34, alkaline phosphatase 144. Social work is working on discharge planning which will be to [facility], [facility] or [facility]. 11/02: Patient remains in the intensive care unit on mechanical ventilation with tidal volume 375, FiO2 40, PEEP of 5. Patient's mental status continues to be improved. She has been afebrile, heart rate 97, blood pressure 144/86, pulse ox 98%. Repeat blood work reveals WBC 8.3, hemoglobin 7.2, platelet count 255. Sodium 135, potassium 4.5, chloride 98, CO2 20, BUN 42 and creatinine 2.36. Blood sugars are running between 124 278. She is scheduled for hemodialysis tomorrow with plan for 4 L to be removed. Social work is working on discharge plan and once patient has been accepted and insurance authorization is obtained if needed, patient will be discharged. 11/03: Patient remains in intensive care unit on mechanical ventilation patient is currently on pressure support of 15, CPAP of 5 and FiO2 of 40%. A trach collar is to be attempted today in order to get the patient discharged to [facility]. Land is for medical [facility] on Friday if patient continues to improve. He has been afebrile, heart rate in the 80s, blood pressure 90/57, pulse ox 100%. Repeat blood work reveals WBC 7.5, hemoglobin 6.9, platelet count 255. Sodium 133, potassium 5.1, chloride 97, CO2 27, BUN 59 creatinine 3. Blood sugars up and running 117 164. 11/04 patient remains in ICU, this is day number 55, pulmonary is following closely, they have recommended fenestrated trach, for which Dr. warren is going to perform, patient is anticipated to be discharged to long-term care facility, most likely early next week. She is stable, with no new fevers, antibiotics has been completed, blood sugars are stable, hemoglobin 7.7, WBC 8.5, blood sugars running between 145-150, creatinine of 2.34 11/05: Patient remains in ICU, trach collar replaced by Dr. Zhang this a.m., patient's communicating with handwritten communication mentions that she has back pain, on IV Dilaudid still, we'll replace [place]lston 7.5, also cannot sleep, muscle relaxants started with cyclobenzaprine, where finalizing discharge planning, to subacute rehab long-term care no fever no chills, coughing a lot, with mucus production, suctioning on the trach when necessary by nursing staff, 11/06: Patient is still having refractory sleep, wakes up with chills and sweats, also. Alternating hot and cold, iron is suspected to be low, hemoglobin of 7.2, check for iron studies, on Ativan and aspirin, start melatonin 6 mg at bedtime, might need Zestril, however is on Seroquel. We'll going to increase Seroquel to 75 mg blood sugars are stable, no change in program today, pain control is better, using [place]lston 7.5. 11/07: Patient remains in the intensive care unit on trach collar at FiO2 of 35%, flow rate of 8. Patient states that she slept better last evening. We will add in consult for speech therapy to evaluate if patient can start on oral food. She is currently on tube feedings at goal. Repeat blood work reveals WBC 7.9, hemoglobin 8.0, platelet count 238. Sodium 130, potassium 3.9, chloride 93, CO2 28, BUN 48 creatinine 2.84. Capillary blood glucose running between 75 and 129. Iron 22, TIBC 244, iron saturation 9.0 to. Total bilirubin 0.1, AST is 26, ALT 27, alkaline phosphatase 115. TSH 1.7. 11/08: Social work is trying to determine discharge plan. Currently looking at inpatient rehab facilities. Patient has been seen by speech therapy and approved for oral intake and she is having her first meal today. She is undergoing hemodialysis today. She's been afebrile, heart rate 88, blood pressure 155/96, pulse ox 94% on trach collar 35% FiO2. Blood sugars are running in the 70s and 80s. Patient is working with therapies. 11/09: Patient is off tube feedings completely and taking all oral nutrition. Dr. See stopped the scheduled Levemir is now blood sugars are on the low side. Patient states she is sleeping well. Seroquel has been completely discontinued. She has been afebrile, heart rate 96, blood pressure 124/78, pulse ox 96% on trach earlier at 35 FiO2. Repeat blood work reveals sodium 138, potassium 3.8, chloride 106, CO2 26, BUN 25 and creatinine 2.26. Blood sugars running between 48 and 125. smooth and burr worker composites is trying to make placement for the patient for rehab. 11/10: Patient has been resumed on tube feedings due to low oral intake. She is receiving dialysis this morning and is nauseated and does not feel well. She has been [facility]. Midline has been ordered and PICC line discontinued. A consult has been placed with Dr. Walker for evaluation of inpatient rehab. Noted he has documented limited endurance and would not be able to participate in the full inpatient rehab program. Patient has been afebrile, heart rate 95, blood pressure 154/82. Pulse ox 88% on trach collar. Repeat blood work reveals sodium 134, potassium 4.2, chloride 103, CO2 22, BUN 13 creatinine 2.94. Blood sugars are running between 101 125. 11/11: Patient is sitting up in bed in no acute distress. Exercise has been given for patient to be transition to full inpatient rehab program. Patient remains afebrile, heart rate 116, blood pressure 160/109, respirations 22, pulse ox is 90% with movement on a trach collar. FiO2 60. Patient able to answer questions appropriately. Tolerating diet. Hydralazine ordered for elevated blood pressure. 11/12: Sitting in bed in no acute distress. She is experiencing some episodes of constipation. And difficulty sleeping at night. He remained afebrile, blood pressure 151/91 heart rate 112, pulse oximetry 92% on trach collar. Patient continues with a exercise program to support transition to a full inpatient rehab program. 11/13: Patient remains in intensive care unit. She appears to be comfortable and in no acute distress. Patient has a trach collar in place at 40% FiO2. There has been intermittent The trach done. Patient is taking oral diet as well as feedings per PEG tube is her oral diet is not enough to sustain her. She continues to have significant weakness and requires rehab. Social work is following closely and trying to find inpatient rehab facility for her. Patient's been afebrile, heart rate 98, blood pressure 166/108, pulse ox 99%. Hydralazine will be increased to 100 mg 3 times daily. Repeat blood work reveals WBC 11.4, hemoglobin 8.6, platelet count 246. Sodium 133, potassium 3.5, chloride 96, CO2 26, BUN 36 creatinine 3.17. Blood sugars running 113 260. 11/14: Patient remains in the intensive care unit. Fortunately, this morning Dr. Dykes has to cannulated today and patient is now on O2 at 3 L nasal cannula. She has a gauze dressing over the tracheostomy site. Patient is seen today sitting up in a chair in intensive care unit. Hemoglobin is 8.6, electrolytes are normal, BUN 36 and creatinine 3.17. Patient is continued on hemodialysis Friday. Patient continues to work with physical therapy and occupational therapy. Social work is working on discharge planning to subacute or long-term care facility for rehab. REVIEW OF SYSTEMS Constitutional: No fever, no chills, no night sweats. No weight change. Profound weakness, + significant fatigue no lethargy. Reported daytime sleepiness. EENT: No headache. No loss of vision. No loss of Hearing. No nasal drainage or congestion. No epistaxis. No sore throat. Lungs: No shortness of breath, cough, no sputum production. No wheezing. Cardiovascular: No chest pain, no lower extremity edema. No palpitations. No paroxysmal nocturnal dyspnea. No orthopnea. No lightheadedness or dizziness. No syncopal episodes. Abdominal: No abdominal pain. Denies nausea, vomiting. No diarrhea. No constipation. No bloody or tarry stools. No loss of appetite. Genitourinary: No dysuria, increased frequency, urgency. No urinary retention. Minimal urine production Musculoskeletal: No myalgias. Noted significant muscle weakness, noted gait dysfunction, no frequent falls. No back pain. No neck pain. Integumentary: Positive wound-decubitus ulcer, trach wound. No rash or pruri tus. No unusual bruising. No change in hair or nails. Neurologic: No aphasia. No facial droop. Noted change in mentation-back to baseline. No head injury. No headache. No paralysis. No paresthesia. Psychiatric: suspected depression. positive anxiety. Endocrine: Noted abnormal blood sugars-stable and monitored. PHYSICAL EXAMINATION Gen: This is is a 35-year-old black female, sitting in a recliner in her ICU room. Patient appears to be in no acute distress HEENT: Head is atraumatic, normocephalic. Pupils equal, round. Sclerae is anicteric. Patient is on nasal cannula oxygen, small dressing over tracheostomy site. NECK: Supple. No JVD. No lymphadenopathy. No thyromegaly. LUNGS: Lung sounds are clear to auscultation. No intercostal retractions. HEART: Regular rate and rhythm. No murmur. monitor technician sinus tachycardia. ABDOMEN: Soft. Bowel sounds are present. No masses. No tenderness. EXTREMITIES: Trace bilateral pedal edema. No calf tenderness. NEUROLOGICAL: Patient is awake, alert, oriented x3 and able to follow commands, significant weakness. ASSESSMENT AND PLAN 1. Acute hypoxic respiratory failure secondary to Covid 19 pneumonia and possible bacterial pneumonia. Patient was intubated on September 11. She is status post 1 dose of Remdesivir and 1 dose of Tocilizumab. Continue Ventolin inhaler 4 times daily, Lovenox 30 mg subcu daily, supplements. Status post PEG tube and trach. Completed antibiotics. 2. Acute diabetic ketoacidosis secondary to Covid 19 pneumonia, uncontrolled with hyperglycemia. Levemir discontinued, continue scheduled NovoLog 7 units every 6 hours and continue NovoLog scale every 6 hours. 3. Metabolic encephalopathy secondary to Covid 19 and DKA. 4. Sepsis and septic shock secondary to Covid 19 pneumonia with multiorgan failure. Continue as in #1. 5. Acute metabolic acidosis secondary to acute DKA, Covid 19 and acute kidney injury. Renvela 1600 mg q6h. 6. Diabetes mellitus type 2 uncontrolled with A1c 13.6. Continue as above. 7. Hypophosphatemia status post replacement. 8. Hyperkalemia secondary to DKA, resolved. 9. Sinus tachycardia secondary to sepsis, volume deficiency. Patient is on Cardizem 60 mg 3 times daily, and Lopressor 50 mg twice daily. 10. Acute kidney injury secondary to ATN secondary to Covid 19 and DKA. Continue hemodialysis on Friday. 11. Citrobacter pneumonia versus MRSA pneumonia. Completed course of antibiotics. 12. Hypertension. 13. Morbid obesity with BMI of 53. 14. Situational depression and anxiety. Seroquel discontinued, continue Lexapro 10 mg daily and Xanax 0.25 mg twice daily as needed. 15. DVT prophylaxis. Lovenox. 16. GI prophylaxis. Protonix 40 mg IV push daily. 17. Stage IV pressure ulcer to trach site. Currently utilizing absorptive silver dressing. 18. Stage II decubitus ulcer to coccyx. 19. Critical illness polyneuropathy and myopathy. Continue physical therapy. 20. Anemia of chronic disease. Transfuse total of 3 units of packed RBCs, continue Aranesp 40 g every 7 days. CODE STATUS: Full code Prognosis guarded. DISCHARGE PLAN Inpatient Rehab facility once arrangements are completed Impression and plan of care have been directed as dictated by the signing physician. Kimberly Boswell nurse practitioner acting as scribe for signing physician. Objective - Vital Signs Vital signs: Vital Signs Temp 98.3 F 11/14/20 12:00 Pulse 122 H 11/14/20 12:00 Resp 24 11/14/20 12:00 BP 140/80 11/14/20 12:00 Pulse Ox 100 11/14/20 14:00 Intake & Output 11/13/20 11/14/20 11/14/20 18:59 06:59 18:59 Intake Total 562 64 Output Total 2 1100 750 Balance 560 -1036 -750 Weight 98.3 kg Intake: Tube Feeding 442 34 Other 120 30 Output: Urine 750 Stool 1100 Hemodialysis 2 Other: Voiding Method Bedpan Bedside Commode Bedpan # Voids 1 1 # Bowel Movements 1 ABP, PAP, CO, CI - Last Documented Arterial Blood Pressure 136/76 - Labs CBC & Chem 7: 11/15/20 03:07 11/15/20 03:07 Labs: Abnormal Lab Results - Last 24 Hours (Table) 11/13/20 11/13/20 11/14/20 Range/Units 17:03 22:35 06:49 POC Glucose (mg/dL) 178 H 172 H 192 H (75-99) mg/dL 11/14/20 Range/Units 11:46 POC Glucose (mg/dL) 159 H (75-99) mg/dL
--- NOTE | 2020-11-15 11:48 | P.PN ---
Subjective Progress Note Date: 11/15/20 35-year-old female patient of Dr. Arroyo with past medical history of type 2 diabetes comes in with acute shortness of breath associated with high light sugars. Patient on admission was found to have a fever of 101.5 pulse rate 125 respiratory rate 20. Blood pressure 132/106. On chest x-ray obtained in the ER suggestive of bilateral infiltrates concerning for call with pneumonia. COVID PCR was positive. On admissions patient had an ABG with a pH of 7.14 pCO2 of 20, pO2 of 59, bicarb of 7. Patient's blood sugar on admission was 424 on assessment today patient's blood work patient had a sodium 135 potassium 5.4 chloride 123 bicarb less than 5 and creatinine 0.73. D-dimer was elevated on admission patient 9 28 patient given 1 L of IV fluids followed by normal saline running at 200 mL/h. Patient was positive for acetone on admission. She will anion gap closed and was switched to D5NS. Insulin drip was continued during the night and was switched to patient's home medication this morning. One dose of remdesiver was ordered. Apparently around noon, A- team was called on the patient secondary to hypoxia patient's oxygen saturation dropped to the 70s and 80s on 100% nonrebreather. Patient was switched to BiPAP on 18/12 and is doing better o FiO2 of 80%. ABG was obtained and ph was 7. 14 pCO2 of 28 bicarb of 7 pO2 of 17. Patient noted to have uncompensated metabolic acidosis with compensated respiratory alkalosis. Stat dose of 1 amp bicarb was given and followed by sodium bicarbonate drip. Insulin drip restarted. Patient's initiated on dexamethasone 6 mg IV twice a d ay. Potassium phosphate ordered as phosphorus is low. Patient's repeat blood gases suggest a pH of 7.25, CO2 32 pO2 of 72 bicarb 14. I will not normal saline at 100 mL/h as patient's anion gap has increased. Patient given 1 dose of 2 mg of morphine with improvement in respiratory rate. One dose of Ativan 0.5 mg was given. Xanax 0.25 twice a day along with Ativan 0.5 IV every 6 hours ordered for the patient. Vitals were evaluated patient pulse 129 [id number]. She was moved to the ICU. Precedex drip was initiated. Lopressor was initiated at 25 twice a day. Metoprolol tartrate 5 mg IV every 6 hours. Systolic blood pressure more than 160. Started chest x-ray was obtained and suggest stable bilateral consolidation suggestive of COVID-19 pneumonia. 09/12 patient is seen in the ICU is currently mechanically ventilated and sedated on vent settings of respiratory rate 36, tidal volume 375 FiO2 80% PEEP of 18.. Vital signs reviewed patient had a temp of 100.4 pulse 150 respiratory rate 36 oxygen saturation 95% on 80% on fio2 .'s labs are reviewed which patient had a d-dimer 1.84 that is increased to 14.3. Arterial Blood gas suggest ph 7.35, CO2 40, po2 62, . Her BMP suggest a sodium 135 potassium 3.7 chloride 112 bicarb 21 creatinine 1.57 for calcitonin is 3.5 CRP is increased from 8.78.2 LDH is increased to 2614. Patient remains on Pneumovax, propofol drip. Lovenox increased to 50 subcu twice a day. Patient received 2 L of IV fluids. Continue IV fluids at 100 mL/h. Bicarb drip discontinued patient initiated on Zosyn 3.375 every 8 hours. Continue insulin drip at 4 units per hour. Patient is currently in prone positioning 09/13: Patient evaluated in the ICU remains on Ventilation continues to be sedated, in prone position. Vent settings are respiratory rate 36, tidal vital 375, FiO2 70% PEEP of 18. ABG shows pO2 of 82, PCO2 of 39, pH is 7.19. Latest labs show WBC 11.1, hemoglobin 13.2, d-dimer still pending, but yesterday was up to 14.3. Creatinine up to 3.4, BUN 24 sodium 137, potassium 4.0. Patient's urine output has been low, nephrology on consult. Bicarb drip increased to 100 miles an hour, receiving another liter of normal saline, she did have a ultrasound that showed unremarkable bilateral kidneys. Repeat chest x-ray showed bilateral lung infiltrates that are stable. Anion gap has closed, will start Lantus 10 units at at bedtime Novolog every 6 hours. 09/14: Patient is seen in the ICU, still currently mechanically ventilated and sedated. She continues in the prone position. Her oxygen quickly drops if she is not in prone. Patient's kidney function has worsened. Laboratory values show creatinine of 4.87, BUN 33, LDH 2191, C-reactive protein 2.7. ABG shows pH 7.32, pO2 of 60, pCO2 43. Patient is making almost no urine overnight. Nephrology is following patient continues on cefepime for urinary tract infectio n, culture is still pending. Vascular has been consulted for placement of temporary hemodialysis catheter for plans for dialysis. 09/15: Patient evaluated in the ICU, continues to be mechanically ventilated and sedated on assist control ventilation rate of 36, tidal volume 375, FiO2 100% and PEEP of 18. ABG today shows pO2 58, pCO2 of 45, and pH 7.35. She continues on tube feedings. Yesterday patient underwent ultrasound-guided right internal jugular non-tunneled hemodialysis catheter placement. Patient underwent hemodialysis treatment last night and plans have another hemodialysis treatment today. She continues to make almost no urine. She continues on cefepime for antibiotic coverage, and continues on Decadron and Lovenox. 09/16: Patient seen on follow-up remains in the ICU mechanically ventilated and sedated. She continues on assist control rate of 36, tidal volume 375, FiO2 10 0% and PEEP of 20. PEEP had to be increased due to patient had to be in supine position for dialysis, will go back to prone position once dialysis is complete. ABG shows pH 7.32, pCO2 49, PaO2 61. Laboratory values showed WBC 11.2, hemoglobin 11, sodium 134, creatinine 4.44, BUN 38. Urine culture shows no growth, blood cultures show no growth to date. Repeat chest x-ray shows bilateral pleural effusions, correlate for ARDS, pulmonary edema, diffuse pneumonia, findings are stable from last exam. Patient does not require any pressors, blood pressure 133/57, heart rate 78. 5/16: Patient was evaluated in the ICU today for follow-up. She continues to be intubated and on mechanical ventilation. Current vent settings are tidal volume 375, FiO2 100% and PEEP of 20. ABG shows pH 7.37, pCO2 40, pO2 102. She continues with intermittent prone positioning. Patient continues to have almost no urine output, maintained on dialysis. Patient received dialysis yesterday without complication. Laboratory values revealed WBC 10.3, hemoglobin 10.4, sodium 132, potassium 3.1, BUN 33, creatinine 4.29, LDH 1913, C-reactive protein 1.3. Urine and sputum cultures are negative, blood cultures show no growth to date. Consult placed to dietary to start TPN[ ] 09/18: She remains in the intensive care unit intubated and on mechanical ventilation with tidal volume 375, FiO2 60 and PEEP of 20. Patient is being prone to daily at approximately 16 hours per day. Pulmonary medicine has added in Dr. Zhang to do PEG tube and trach today. Patient is not on vasopressors. Repeat blood work reveals WBC 12.6, hemoglobin 9.8, platelet count 212. Sodium 133, potassium 3.2, chloride 102, CO2 21, BUN 35 and creatinine 4.12. Blood sugar 126. Patient underwent hemodialysis yesterday with removal of 2 L and is scheduled again today with goal of 2-3 L and is scheduled again tomorrow. 09/19: She is scheduled for hemodialysis today and is off fentanyl temporarily. Patient is status post trach and PEG tube yesterday. And she remains on mechanical ventilation. Pulse ox 93-95%. She has been afebrile, heart rate 64, respiratory rate 36, blood pressure 115/50. Fentanyl is off to improve blood pressure for hemodialysis which is scheduled for today. Contacted vascular surgery about permanent hemodialysis catheter. Repeat blood work reveals WBC 14.3, hemoglobin 9.6, platelet count 200. D-dimer 6.48. LDH 1686. C-reactive protein 1.1. BUN 34 creatinine 3.81. Sodium 130, potassium 3.5, chloride 101, CO2 18. Blood sugars running between 101 198. Plan is to wean off Pneumovax today. Patient remains on insulin drip. Repeat chest x-ray reveals bilateral multifocal confluent opacities consistent with COVID-19. Some improved aeration periphery of the left lung and worsening opacities throughout the right lung. 09/20: She remains in the intensive care unit on mechanical ventilation. She has been afebrile, heart rate 65, respiratory rate 37, blood pressure 121/70, pulse ox 91-99%. Repeat blood work reveals WBC 14.5, hemoglobin 9.1, platelet count 216. D-dimer 6.13. Sodium 133, potassium 3.1, chloride 102, CO2 18, BUN 35 and creatinine 4.27. Blood sugars running between 128 and 143. LDH 1717. C- reactive protein 1.7. Patient remains on insulin drip which will be transit ioned to NovoLog scale every 6 hours. Patient is scheduled for permanent hemodialysis catheter placement today with vascular surgery. Repeat chest x-ray reveals stable diffuse bilateral interstitial and airspace disease. Possible small right effusion. His work is following for transfer [facility]. Do not anticipate discharge until next week. 09/21: Patient is undergoing hemodialysis. She remains on mechanical ventilation with tidal volume 375, FiO2 down to 45 and PEEP was decreased to 15. Patient is continued on propofol, fentanyl drips. She is on tube feedings at goal. Patient was taken off insulin drip yesterday and on scale only but blood sugars are running in the 200s, Levemir scheduled at bedtime will be added. Other blood work reveals WBC 13.3, hemoglobin 8.7, platelet count 192. Sodium 137, potassium 3.6, chloride 107, CO2 18, BUN 34 and creatinine 4.21. Repeat chest x-ray is stable. 09/22: She remains in the intensive care on mechanical ventilation with tidal volume 375, FiO2 of 50 and PEEP of 10. Pulse ox is running 96%. She is afebrile, heart rate in the 50s, respiratory rate 36, blood pressure 100/64. Repeat blood work reveals WBC 16.5, hemoglobin 8.9, platelet count 213. Sodium 134, potassium 3.7, chloride 103, CO2 21, BUN 34 and creatinine 3.89. Blood sugars running in the 200s to 324. Levemir increased to 16 units at bedtime and continue NovoLog scale every 6 hours. Patient is on tube feedings at goal. She has a Haley catheter in with a scant amount of dark/brown urine. Fecal management system is in place. Repeat chest x-ray reveals diffuse bilateral airspace infiltrates persist unchanged. Patient is scheduled for hemodialysis tomorrow morning on Friday. 09/23: Patient remains on mechanical ventilation with tidal volume 3.75, FiO2 50 and PEEP of 10. monitor worker sinus rhythm. She has no urine output. Fecal management system is in place. She is undergoing dialysis at this time with plan for removal of 2-1/2 L. She has been afebrile, heart rate in the 50s, respiratory rate 36, blood pressure 108/76 and pulse ox 89%. WBC 13.6, hemoglobin 9.1, platelet count 194. Sodium 136, potassium 3.0 and was replaced, chloride 106, CO2 21, BUN 49 creatinine 5.31. Blood sugars are running between 182 and this morning 194. Patient was still in the 200s and 300s. Levemir last evening was increased to 16 units. Patient remains on propofol and fentanyl drips. Lovenox was increased to 60 mg twice daily. 09/24: PEEP was increased today to 20, tidal volume is at 375 and FiO2 of 50%. Patient has been afebrile. She has been started on levo fed. Repeat chest x- ray reveals bilateral multifocal confluent opacities consistent with Covid 19 or ARDS redemonstrated. Nephrology will plan dialysis for tomorrow for 3 L. Patient remains on propofol fentanyl and Nimbex. WBC 12.5, hemoglobin 9.8, platelet count 161. D-dimer 13.3. Sodium 132, potassium 3.4, chloride 102, CO2 20, BUN 48 and creatinine 4.67. Blood sugars extremely elevated to 96-409. LDH 2217. 09/25: Patient remains in the intensive care unit on mechanical ventilation with tidal volume 375, FiO2 50 and PEEP of 20. Patient is afebrile, heart rate 61, respiratory rate 36, blood pressure 102/56, pulse ox 97%. Repeat blood work reveals WBC 9.3, hemoglobin 8.5 and platelet count 171. Sodium 130, potassium 3.7, chloride 100, CO2 20, BUN 61 creatinine 5.65. Blood sugars have been elevated up to 455. Levemir increased to 20 units twice daily, NovoLog 5 units every 6 hours and continue NovoLog scale. Patient is scheduled for hemodialysis today. Repeat chest x-ray reveals bilateral multifocal and confluent opacities. Decadron and Lovenox dosing change by pulmonary. Patient is off norepinephrine. 09/26: Patient remains in the intensive care unit on mechanical ventilation with tidal volume 375, FiO2 50 and PEEP of 15. She has been afebrile, heart rate 91, blood pressure 114/68, pulse ox 99%. monitor worker sinus rhythm. 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 Sodium 134, potassium 3.6, chloride 102, CO2 22, BUN 41 creatinine 4.21. Patient has improved blood sugars this morning running 150s and 160s. Diabetic medications were adjusted yesterday. Patient is awake and alert and interacting. Yesterday, patient had PICC line inserted by interventional radiology. Repeat chest x-ray reveals diffuse airspace infiltrates in both lung ann appear to progress slightly in the interval. 09/27: Patient remains in intensive care unit on mechanical ventilation with improvement of settings with tidal volume 375, FiO2 decreased to 40 and PEEP decreased to 10. Patient is on hemodialysis every other day and plan to remove 3 L today. Patient is more awake and alert. She is slow to respond but is able to follow simple commands. Blood sugars are running between 84 and 123. Repeat blood work reveals WBC 7.1, hemoglobin 8.1, platelets 152. Sodium 135, potassium 3.6, chloride 103, CO2 21, BUN 53 and creatinine 5.88. Repeat chest x-ray revealed cardiomegaly and pulmonary edema. Patient is on tube feedings:. Patient is not require vasopressors and is off sedation. Fecal management system remains in place for brown liquid stool. C. difficile was negative. 09/28: Patient remains on mechanical ventilation with tidal volume 375, FiO2 increased to 80 and PEEP increased to 18. Patient had a rough night was very anxious, no pain. Xanax 0.25 mg 3 times daily was added. There is concern for pulmonary embolism for which patient was started on heparin drip, she is unable to undergo CAT scan. Venous Doppler bilateral lower extremities was nondiagnostic due to extensive edema in obese patient but minimal imaging of the popliteal veins does show flow. Repeat echocardiogram has been ordered. Cefepime has also been ordered at 1 g IV piggyback every 24 hours as well as vancomycin, pharmacy dosing. Patient is back on fentanyl drip, propofol drip and norepinephrine. Blood sugars are elevated and insulin Levemir will be increased to 25 mg twice daily. Ferrlecit infusion has been ordered by nephrology for 4 days. Patient is undergoing hemodialysis today.temperature max 100.2, heart rate 134, respiratory rate 34, blood pressure 120/65, pulse ox 94%. monitor worker is sinus tachycardia. Repeat blood work reveals WBC 16.9, hemoglobin 9.7, platelet count 216. D-dimer 8.81. Sodium 134, potassium 3.8, chloride 99, CO2 25, BUN 43 and creatinine 5.36. Blood sugars in the 200s. AST 40. 09/29 Patient had declined more last 48 hours require more sedation, patient is doing hemodialysis, respiratory failure is quite bit worse this time. Patient was inquired the pain is well back on fentanyl drip. Her vent set up with PEEP is limited but higher. No new finding on culture and her chest x-ray continues shows diffuse infiltrate persistent although there is a moderate interval improvement. 09/30 patient's was seen and evaluated. PEEP was reduced to 11 as patient is maintaining good saturation at the current vent settings. 10/01 patient was seen at bedside. She is currently on assist control rate of 28 white tidal volume 350 FiO2 50% and PEEP of 10 which has been reduced by pulmonary as patient name cleaning her oxygen saturation. Arm blood gas was obtained with a pH of 7.35 pCO2 37 pO2 of 63. She remains hemodynamically stable with no need for pressors. Labs were reviewed patient's BUN is 29 creatinine 3.93 glucose 122 albumin 2.2 sodium 131 chloride 19 hemoglobin is downtrending with a Hb of 7.3 no leukocytosis 7.1. Patient's urine output is m inimal at this time. Her rate has increased to 129 and is currently on positive fluid balance even with dialysis. Last dialysis was done yesterday. Continue enteral feeding currently at goal. Antibiotic has been discontinued and continues to remain on DEXA methicillin 4 mg IV daily. 10/02 patient continues to be on trach support with mechanical ventilation. Patient was evaluated by cable splicing technician and was switched to VC control as patient was noted to be double stacking on and off throughout the night. Respiratory rate continue to 28 tidal volume increased to 400 with a PEEP for Dr. Downey. Venkatesh gregorio is maintaining oxygen saturation 91% on the current setting. According to the nurse bedside patient saturation drops significantly or she is moved or her sedation is dropped. Patient is currently on propofol drip, fentanyl drip. She did underwent dialysis today and was able to maintain her low pressure without the need of pressors. Labs reviewed today suggest a WBC of 6.7 hemoglobin of 7 .0 and d-dimer 3.9 bicarb 17 BUN 38 creatinine 4.8. LDH is 964. Sodium 1:30 likely secondary to volume overload. Urine sodium and urine osmolality ordered. Patient's glucose this morning is 146. Continue to remain on enteral feeding. Urine output is reduced. Fall catheter will be placed today. Continue to remain on dialysis. 10/03: Patient remains on mechanical ventilation and is back on propofol and fentanyl drips. Patient is currently on VC control with tidal volume 400, FiO2 55 and PEEP of 12. Patient still is not making any urine and is dialysis dependent with next treatment planned for tomorrow with removal of 3-3-1/2 L. PEG tube feedings are at goal. Fecal management system remains in place. At the time of evaluation, patient is off levophed. Repeat chest x-ray reveals s table diffuse bilateral airspace disease correlate for ARDS, pulmonary edema or diffuse pneumonia. Temperature max last evening was 101. Temperature currently 99, heart rate 106, respiratory rate 32, blood pressure 101/50, pulse ox 86%. Repeat blood work reveals WBC 6, hemoglobin 7.4, platelet count 160. D-dimer 4.05. Sodium 133, potassium 3.5, chloride 100, CO2 23, BUN 31 creatinine 3.8. Blood sugars are running between 100 and 170. Ferritin 1514. Liver function test normal. LDH 1016, C-reactive protein 13.6. Prognosis remains guarded. 10/04: Patient remains intubated on mechanical ventilation with tidal volume 400, FiO2 65, PEEP of 14. Patient continues to run fevers and repeat blood culture and urine and urine culture ordered for today. Haley catheter has been removed this patient has no significant urine output at about 20 mL per shift. BladderScan is monitored for greater than 300 and the patient is straight cathed. Hemoglobin is 6.8 and she has been ordered 41 unit of packed RBCs today. She is currently on propofol and fentanyl drips. She is scheduled for hemodialysis today. WBC 4.5, hemoglobin 6.8, platelet count 151. D-dimer 3.28. Sodium 132, potassium 4.1, chloride 100, CO2 22, BUN 37 creatinine 4.74. Blood sugars running between 97 and 110. Ferritin 1801. LDH 859. C-reactive protein 14.4. Chest x-ray reveals correlate for pneumonia, edema, ARDS. Prognosis remains guarded. 3: Patient remains in intensive care unit currently on mechanical ventilation with tidal volume 400, FiO2 was increased to 100 and PEEP is at 14. She continues to run fevers which have worsened with temperature max 103.1. She has been tachycardic in the 130s, blood pressure is marginal but not on vasopressors. Pulse ox currently 92%. Repeat blood work reveals WBC 5.5, hemoglobin 7.6, platelet count 190. D-dimer 2.7, ferritin 1770, LDH 932, C- reactive protein 21.4. Blood sugars are running between 100 1669. Electrolytes are normal. BUN 27 and creatinine 3.79. Pancultures were done yesterday including a straight cath for urine culture, sputum culture and blood culture. Arterial line was removed as well as midline. She is currently on propofol, fentanyl and started on Nimbex today. 10/06: Patient remains in the intensive care unit. Today patient in prone position and remains on mechanical ventilation with tidal volume 350, FiO2 65 and PEEP of 14. Her last documented fever was yesterday at 2 PM. Heart rate is in the 120s, respiratory rate 32, pulse ox 88-92%. CBC is unremarkable. Electrolytes are normal. BUN 30 creatinine 2.93. Blood sugars are running between 135 and 164. Cultures from October 04: Blood culture no growth, sputum culture finalized, urine culture finalized. Catheter tip culture is in process. Repeat chest x-ray shows bilateral interstitial infiltrates. Patient is on tube feedings of Nepro at goal of 30 ML's per hour. Patient underwent dialysis yesterday and is scheduled for repeat dialysis today. 10/07: Patient maintains in the intensive care unit intubated and on mechanical ventilation. She is receiving hemodialysis this morning has been every day. Plan is to remove 2-1/2 L today. Vent settings have changed today with tidal volume 350, FiO2 was increased to 100% and PEEP remains at 14. She has been continued on Nimbex, fentanyl, norepinephrine and propofol. Plan is to prone position patient following dialysis. Repeat chest x-ray reveals worsening interstitial infiltrates. BUN is 26 and creatinine 2.59. LDH 955, C-reactive protein 22.1. Prognosis remains poor. 10/08: Patient remains in intensive care unit intubated and on mechanical ventilation with tidal volume 350, FiO2 60, PEEP of 14. She is pronating today. She is scheduled for hemodialysis on a daily basis. She has been afebrile, heart rate 112, respiratory rate 36, blood pressure 161/88, pulse ox 93%. Re peat blood work reveals WBC 9.9, hemoglobin 9.1, platelet count 320. Sodium 133, potassium 5.3, chloride 100, CO2 20, BUN 29 creatinine 2.44. Blood sugar running between 102 and 139. LDH 1026, C-reactive protein 19.7. 10/09: Patient is undergoing dialysis this morning. She continues to be intubated and on mechanical ventilation with tidal volume 350, 270 and PEEP of 14. Patient is also on propofol, Nimbex, norepinephrine and fentanyl drips. Repeat chest x-ray reveals persistent bilateral multifocal and confluent opacities consistent with Covid 19. She is afebrile, heart rate 116, respiratory rate 36, blood pressure 120/65, pulse ox 91%. Repeat blood work reveals WBC 5.4, hemoglobin 9.2, platelet count 216. D-dimer 2.67, ferritin 2568, LDH 794, C- reactive protein 13.9. Blood sugars have been running 90-104. Creatinine 1.64. She is on daily dialysis treatment. 10/10: She remains in the intensive care unit. She is now out of isolation as a repeat Covid test came back negative. She remains on mechanical ventilation with tidal volume 350, FiO2 70 and PEEP of 14. Patient is also on Nimbex, propofol, norepinephrine, fentanyl drips. She is on PEG tube feedings at goal and tolerating well. Repeat blood work reveals WBC 7.8, hemoglobin 7.5, platele t count 267. Sodium 139, potassium 3.9, chloride 109, CO2 20, BUN 20 creatinine 1.29. Blood sugars are running between 76 and 102. Scheduled NovoLog decreased to 3 units. Repeat chest x-ray reveals moderate cardiomegaly and continued pulmonary edema. Slight interval improvement. Patient is continued on daily hemodialysis. 10/11: Patient remains in intensive care unit on mechanical ventilation with tidal volume 325, FiO2 70, PEEP 14. She is currently being prone. She underwent hemodialysis this morning with removal of 4 L of fluid with plan to continue daily treatment. She is currently on Nimbex, fentanyl and propofol. No vasopressor at this time. Fecal management system remains in place. She is on tube feedings currently at hold due to prone positioning. Patient has been afebrile, heart rate 116, respiratory rate 36, blood pressure 100/58, pulse ox 93-96%. Repeat blood work reveals WBC 9.3, hemoglobin 8.1, platelet count 276. Sodium 136, potassium 4.3, chloride 103, CO2 20, BUN 20 creatinine 1.14. Blood sugars running between 133 and 202. 10/12: Patient remains in the intensive care unit. She is undergoing hemodialysis this morning. She's been afebrile, heart rate in the 120s, respiratory rate 32, blood pressure 102/65. She is not on vasopressors. She is continued on Nimbex, fentanyl and propofol. Vent settings are currently tidal volume 325, FiO2 70, PEEP 14. Total platelet count 273. Sodium 133, potassium 4.7, chloride 100, CO2 19, BUN 21 creatinine 0.91. Blood sugars running between 121 and 143. 10/13: Patient remain in the ICU she is on hemodialysis daily, she is still on the vent with a PEEP of 14 and FiO2 of 70. Her oxygenation is marginal pulse rate still high. Patient had scratched cornea was seen in ophthalmology decided to keep doing eyedrops along with eye patch at this point. Prognosis still very bad this point. 10/14: She remains on mechanical ventilation with tidal volume 325, FiO2 70% and PEEP of 14. She did require label fed last evening for about 6 hours. She did not tolerate pronating yesterday. She is undergoing dialysis this morning with plan for removal of 4 L. Blood sugars have been low and IV fluids changed to D 10 until blood sugars have recovered. Levemir and scheduled NovoLog discontinued. Patient is on tube feedings at goal there's been no change in this. 10/15 patient remains on mechanical ventilation in the intensive care unit. FiO2 still at 70%, PEEP of 18. Blood sugars have improved since medications were adjusted. White blood cells 33.9, hemoglobin 8.5, sodium 135, BUN 19, creatinine 0.96. Patient to receive dialysis again today. Patient did run a low-grade fever throughout the night and pro calcitonin level is ordered. Chest x-ray showed continued diffuse bilateral airspace disease. Patient remains on tube feedings at goal. 10/16: Patient remains on mechanical ventilation with tidal volume 300, FiO2 70, PEEP of 15. Fecal management system is out. She is currently on low dose of norepinephrine. She is also on fentanyl drip, propofol drip, rocuronium drip. Heart rate is running in the 130s, sinus rhythm, blood pressure 121/63, pulse ox 95%. Patient is been afebrile. Repeat blood work reveals WBC 18.9, hemoglobin 7.5, platelet count 291. Sodium 135, potassium 4.2, chloride 101, CO2 19, BUN 25 and creatinine 1.36. Blood sugars are running between 143 and 199. Patient is on scale insulin only. Repeat chest x-ray reveals persistent bilateral multifocal and completed opacities consistent with Covid 19. 10/17: Patient remains on mechanical ventilation with tidal volume 300, FiO2 50, PEEP of 14. She is currently receiving hemodialysis. The patient is having yellow-colored drainage from the trach site. This is going to be culture today. Repeat blood work reveals WBC of 24, hemoglobin 7.3 and platelet count 310. Sodium 136, potassium 4.1, chloride 101, CO2 19, BUN 24 creatinine 1.43. Blood sugar 139. Capillary blood glucose running 147 and 189. Repeat chest x-ray is unchanged. Patient had increased respiratory rate 40s and 50s with oxygen saturation of 87 and now was increased and Seroquel added this morning. Prognosis remains guarded. 10/18: Patient remains on mechanical ventilation with tidal volume 300, FiO2 60, PEEP has been decreased to 12. Patient will need a PEEP of 8 in order to transfer to long-term care. She is currently on fentanyl drip and Precedex drip. Patient is tracking when her name is stated. She seems to be slightly i mproved today. Patient has been afebrile, heart rate 106, respiratory rate 32, blood pressure 110/61, pulse ox 98%. Repeat blood work reveals WBC 30.3, hemoglobin 7.2, platelet count 350. Sodium 139, potassium 4.2, chloride 103, CO2 20, BUN 23 creatinine 1.79. Blood sugars are increasing running up 299. Patient will be placed on Levemir. Secretions from tracheotomy sent for culture and in process. She is currently undergoing hemodialysis. 10/23: Patient remains in the intensive care unit on mechanical ventilation with tidal volume 300, FiO2 65 and PEEP of 10. monitor worker has been in a sinus rhythm. Patient does open her eyes and appears to be tracking. Blood sugars have been elevated. Levemir will be increased to 40 units daily and scheduled NovoLog increased to 12 units and continue NovoLog every 6 hours per scale. Patient is receiving hemodialysis today. She is not currently on vasopressors. Patient is on Precedex drip only. Antibiotics in the form of cefepime were started on October 18. Patient has been afebrile, heart rate 126, respiratory rate 36, blood pressure 163/105. Pulse ox 91%. Repeat blood work reveals WBC 16.0, hemoglobin 7.2, platelet count 208. Electrolytes are within normal limits. BUN 62 and creatinine 2.43. Blood sugars running between 259-321. Most recent blood culture from October 22 is no growth at 24 hours. Repeat chest x-ray reveals cardiomegaly and persistent bilateral pulmonary edema. 10/24: Patient is awake, eyes are open and tracking, she is able to follow simple commands. Severe generalized weakness noted. Precedex gtt has been discontinued. Patient is receiving hemodialysis. Her blood sugars have remained elevated for which Levemir increased to 25 units twice daily along with 15 units of NovoLog every 6 hours along with scale. Tidal volume 330, FiO2 60, PEEP of 8. front end manager and family welfare social work professor following closely. Anticipate possible discharge by the end of next week to long-term care facility. 10/25: Patient remains in the intensive care unit on mechanical ventilation. Tidal volume 350, FiO2 60, PEEP 8. She is receiving hemodialysis this morning. Her heart rate remains elevated in the 130s. Pulmonary as started her on Cardizem at 60 mg 3 times daily which has not had any improved effect. We'll start the patient on Lopressor 25 mg twice daily. Patient has been afebrile, heart rate respiratory rate 32, blood pressure 151/91, pulse ox 98%. Patient is been transfuse 1 unit of packed RBCs today. Patient's mental status is improving and patient is able to follow simple commands. WBC 12.2, hemoglobin 6.3, platelet count 196. Sodium 135 otherwise looked lites are normal, BUN 48 creatinine 1.99. Blood sugars are running between 120 and 172. Levemir has been increased to 30 mg twice daily continue 15 units of NovoLog every 6 hours with scale. 10/26: Patient remains in intensive care unit, on mechanical ventilation with tidal volume 375, FiO2 50, PEEP of 8. Patient's heart rate remains elevated 120s and Lopressor increased to 50 mg twice daily. Patient seems to be quite anxious and depressed. We will decrease Seroquel to 50 mg twice daily and start patient on Lexapro. Patient received her first dose of Xanax this morning but this did not seem to help heart rate either. She has been afebrile, heart rate 128, blood pressure 149/79, pulse ox 93%. Repeat hemoglobin 7.3. Sodium 135, potassium 3.9, chloride 90, CO2 30, BUN 45 and creatinine 1.94. Blood sugar are improved running between 117-194. We will make further adjustments to insulin and to increase long-acting to 35 units twice daily and decrease NovoLog scheduled to 7 units and continue NovoLog scale. There are problems with patient's trach and consequently placed with [facility]. General surgery to reevaluate trach. 10/27: Patient is complaining of nausea today. Concerned that this is related to Lexapro. We will further decrease Seroquel to 50 mg at bedtime. Patient is being bladder scanned and last bladder scan wasn't 125 mL. She does not have Haley catheter. No fecal management system. She is having a bowel movement about 3 per day. Plan is for CPAP trial today. She is currently on mechanical ventilation with tidal volume 375, FiO2 50 and PEEP of 8. She has been afebrile, heart rate 105 which is much improved from the last few days. Blood pressure 145/88, pulse ox 94%. There is a new consult in place for Dr. Clemente regarding exchanging the trach and possible debridement at site. WBC 11.4, hemoglobin 8.2, blood count 218. Sodium 136, potassium 4.1, chloride 97, CO2 31, BUN 47 creatinine 1.97. Blood sugars running between 129 and 204. We have changed long acting insulin to 35 units twice daily and continue NovoLog 7 units every 6 hours and scale every 6 hours. Nephrology may be decreasing frequency of dialysis treatments. Anticipate probable discharge to long-term care next week. 10/28: Patient was complaining of nausea today which has resolved. CPAP trial wi ll continue today. She is currently on mechanical ventilation with a tidal volume 375, FiO2 of 50, PEEP of 8. She is afebrile, heart rate 108 which continues to show improvement. Blood pressure 133/87, pulse ox 99%. Patient is able to follow commands. And answers appropriately with nodding her head. WBC 10.5, hemoglobin 8.0, potassium 4.6, BUN 46, creatinine 1.96. Patient is currently receiving hemodialysis. 10/29: Patient was found sitting up in bed. Able to answer some questions approp riately. Utilizing kim. Able to follow commands. Ann over elevated blood sugars. Levemir 35 units twice a day will continue at this with a 7 unit coverage. Patient remains afebrile. Heart rate 102, respirations 29, blood pressure 124/74, pulse ox 97% on mechanical ventilation. Mechanical ventilation settings with a tidal volume 375, FiO2 of 50 and a PEEP of 8. Family has been into see patient. Hemodialysis will be held today. 10/30: Patient remains in the ICU on mechanical ventilation. She is not requiring pressure support. She is on CPAP support. She is receiving hemodialysis this morning with plan to start a Friday schedule this week. Blood sugars are stable and running between 140 and 184. She is on tube feedings at goal and having bowel movements every 12 hours. Repeat blood work reveals WBC 8.9, hemoglobin 10.2, platelet count 258. Sodium 133, potassium 5.0, chloride 97, CO2 23, BUN 69 creatinine 2.67. 10/31: Patient is seen today in intensive care unit. She remains on mechanical ventilation with tidal volume 375, FiO2 45 of PEEP of 5. Patient is found sitting in a chair working with physical therapy. Patient is noted to have left arm weakness without pain and good sensation. She is not receiving dialysis today and will be started on Friday regime. Patient's heart rate is better controlled in the 80s, blood pressure 113/65, pulse ox 99%. Patient is been afebrile. Patient has been on cefepime. Repeat blood work reveals WBC 9.3, hemoglobin 6.9 and patient is transfused 1 unit of packed RBCs today. Platelet count 248. Electrolytes are within normal range, BUN 38 and creatinine 2.04. Her blood glucose running between 130 and 193. AST 38. Social work is working with the daughter regarding discharge planning. 11/01: A she was undergoing dialysis with plan for 3 L removed today and dialysis is scheduled Friday. She is in bed and appears to be comfortable. She is able to talk and express herself and is cognitively intact. She remains on mechanical ventilation. She has been afebrile, heart rate 107, blood pressure 115/85, pulse ox 99%. Repeat blood work reveals WBC 8.5, hemoglo bin 7.5, platelet count 278. Sodium 136, potassium 4.8, chloride 100, CO2 27, BUN 55 creatinine 2.81. Blood sugar running between 114 and 185. Calcium 10.3, total bilirubin 0.2, AST 34, ALT 34, alkaline phosphatase 144. Social work is working on discharge planning which will be to [facility], [facility] or [facility]. 11/02: Patient remains in the intensive care unit on mechanical ventilation with tidal volume 375, FiO2 40, PEEP of 5. Patient's mental status continues to be improved. She has been afebrile, heart rate 97, blood pressure 144/86, pulse ox 98%. Repeat blood work reveals WBC 8.3, hemoglobin 7.2, platelet count 255. Sodium 135, potassium 4.5, chloride 98, CO2 20, BUN 42 and creatinine 2.36. Blood sugars are running between 124 278. She is scheduled for hemodialysis tomorrow with plan for 4 L to be removed. Social work is working on discharge plan and once patient has been accepted and insurance authorization is obtained if needed, patient will be discharged. 11/03: Patient remains in intensive care unit on mechanical ventilation patient is currently on pressure support of 15, CPAP of 5 and FiO2 of 40%. A trach collar is to be attempted today in order to get the patient discharged to intermediate designer care facility. Land is for medical [facility] [place] on Friday if patient continues to improve. He has been afebrile, heart rate in the 80s, blood pressure 90/57, pulse ox 100%. Repeat blood work reveals WBC 7.5, hemoglobin 6.9, platelet count 255. Sodium 133, potassium 5.1, chloride 97, CO2 27, BUN 59 creatinine 3. Blood sugars up and running 117 164. 11/04 patient remains in ICU, this is day number 55, pulmonary is following closely, they have recommended fenestrated trach, for which Dr. warren is going to perform, patient is anticipated to be discharged to long-term care facility, most likely early next week. She is stable, with no new fevers, antibiotics has been completed, blood sugars are stable, hemoglobin 7.7, WBC 8.5, blood sugars running between 145-150, creatinine of 2.34 11/05: Patient remains in ICU, trach collar replaced by Dr. Zhang this a.m., patient's communicating with handwritten communication mentions that she has back pain, on IV Dilaudid still, we'll replace Edon 7.5, also cannot sleep, muscle relaxants started with cyclobenzaprine, where finalizing discharge planning, to subacute rehab long-term care no fever no chills, coughing a lot, with mucus production, suctioning on the trach when necessary by nursing staff, 11/06: Patient is still having refractory sleep, wakes up with chills and sweats, also. Alternating hot and cold, iron is suspected to be low, hemoglobin of 7.2, check for iron studies, on Ativan and aspirin, start melatonin 6 mg at bedtime, might need Zestril, however is on Seroquel. We'll going to increase Seroquel to 75 mg blood sugars are stable, no change in program today, pain control is better, using Edon 7.5. 11/07: Patient remains in the intensive care unit on trach collar at FiO2 of 35%, flow rate of 8. Patient states that she slept better last evening. We will add in consult for speech therapy to evaluate if patient can start on oral food. She is currently on tube feedings at goal. Repeat blood work reveals WBC 7.9, hemoglobin 8.0, platelet count 238. Sodium 130, potassium 3.9, chloride 93, CO2 28, BUN 48 creatinine 2.84. Capillary blood glucose running between 75 and 129. Iron 22, TIBC 244, iron saturation 9.0 to. Total bilirubin 0.1, AST is 26, ALT 27, alkaline phosphatase 115. TSH 1.7. 11/08: Social work is trying to determine discharge plan. Currently looking at inpatient rehab facilities. Patient has been seen by speech therapy and approved for oral intake and she is having her first meal today. She is undergoing hemodialysis today. She's been afebrile, heart rate 88, blood pressure 155/96, pulse ox 94% on trach collar 35% FiO2. Blood sugars are running in the 70s and 80s. Patient is working with therapies. 11/09: Patient is off tube feedings completely and taking all oral nutrition. Dr. See stopped the scheduled Levemir is now blood sugars are on the low side. Patient states she is sleeping well. Seroquel has been completely discontinued. She has been afebrile, heart rate 96, blood pressure 124/78, pulse ox 96% on trach earlier at 35 FiO2. Repeat blood work reveals sodium 138, potassium 3.8, chloride 106, CO2 26, BUN 25 and creatinine 2.26. Blood sugars running between 48 and 125. pan tank worker is trying to make placement for the patient for rehab. 11/10: Patient has been resumed on tube feedings due to low oral intake. She is receiving dialysis this morning and is nauseated and does not feel well. [facility] Midline has been ordered and PICC line discontinued. A consult has been placed with Dr. Walker for evaluation of inpatient rehab. Noted he has documented limited endurance and would not be able to participate in the full inpatient rehab program. Patient has been afebrile, heart rate 95, blood pressure 154/82. Pulse ox 88% on trach collar. Repeat blood work reveals sodium 134, potassium 4.2, chloride 103, CO2 22, BUN 13 creatinine 2.94. Blood sugars are running between 101 125. 11/11: Patient is sitting up in bed in no acute distress. Exercise has been given for patient to be transition to full inpatient rehab program. Patient remains afebrile, heart rate 116, blood pressure 160/109, respirations 22, pulse ox is 90% with movement on a trach collar. FiO2 60. Patient able to answer questions appropriately. Tolerating diet. Hydralazine ordered for elevated blood pressure. 11/12: Sitting in bed in no acute distress. She is experiencing some episodes of constipation. And difficulty sleeping at night. He remained afebrile, blood pressure 151/91 heart rate 112, pulse oximetry 92% on trach collar. Patient continues with a exercise program to support transition to a full inpatient rehab program. 11/13: Patient remains in intensive care unit. She appears to be comfortable and in no acute distress. Patient has a trach collar in place at 40% FiO2. There has been intermittent The trach done. Patient is taking oral diet as well as feedings per PEG tube is her oral diet is not enough to sustain her. She continues to have significant weakness and requires rehab. Social work is following closely and trying to find inpatient rehab facility for her. Patient's been afebrile, heart rate 98, blood pressure 166/108, pulse ox 99%. Hydralazine will be increased to 100 mg 3 times daily. Repeat blood work reveals WBC 11.4, hemoglobin 8.6, platelet count 246. Sodium 133, potassium 3.5, chloride 96, CO2 26, BUN 36 creatinine 3.17. Blood sugars running 113 260. 11/14: Patient remains in the intensive care unit. Fortunately, this morning Dr. Dykes has to cannulated today and patient is now on O2 at 3 L nasal cannula. She has a gauze dressing over the tracheostomy site. Patient is seen today sitting up in a chair in intensive care unit. Hemoglobin is 8.6, electrolytes are normal, BUN 36 and creatinine 3.17. Patient is continued on hemodialysis Friday. Patient continues to work with physical therapy and occupational therapy. Social work is working on discharge planning to subacute or long-term care facility for rehab. 11/15: [facility] She is found sitting in a chair at the bedside and appears to be comfortable. She apparently had concerns for rash on the back and back of her thighs last evening and Benadryl was ordered. I was evaluating appears to be dry skin and Lac-Hydrin will be added instead. Patient has been afebrile, heart rate 111, blood pressure 150/62, pulse ox 97% on 4 L nasal cannula. Social work is working on subacute rehab at [facility] P blood work reveals WBC 11.0, hemoglobin 7.7, platelet count 237. Sodium 129, potassium 3.6, chloride 92, CO2 31, BUN 33 creatinine 2.74. Blood sugars running between 105 195. Discussed this with patient and she does not want to go there but her discharge options are very limited. pan tank worker is also looking at acute/subacute rehab at [facility]. Patient does require insurance authorization prior to discharge. Anticipate everything will be in order for discharge by Friday. REVIEW OF SYSTEMS Constitutional: No fever, no chills, no night sweats. No weight change. Profound weakness, + significant fatigue no lethargy. Reported daytime sleepiness. EENT: No headache. No loss of vision. No loss of Hearing. No nasal drainage or congestion. No epistaxis. No sore throat. Lungs: No shortness of breath, cough, no sputum production. No wheezing. Cardiovascular: No chest pain, no lower extremity edema. No palpitations. No paroxysmal nocturnal dyspnea. No orthopnea. No lightheadedness or dizziness. No syncopal episodes. Abdominal: No abdominal pain. Denies nausea, vomiting. No diarrhea. No constipation. No bloody or tarry stools. No loss of appetite. Genitourinary: No dysuria, increased frequency, urgency. No urinary retention. Minimal urine production Musculoskeletal: No myalgias. Noted significant muscle weakness, noted gait dysfunction, no frequent falls. No back pain. No neck pain. Integumentary: Positive wound-decubitus ulcer, trach wound. No rash or pruritus. No unusual bruising. No change in hair or nails. Neurologic: No aphasia. No facial droop. Noted change in mentation-back to baseline. No head injury. No headache. No paralysis. No paresthesia. Psychiatric: suspected depression. positive anxiety. Endocrine: Noted abnormal blood sugars-stable and monitored. PHYSICAL EXAMINATION Gen: This is is a 35-year-old black female, sitting in a recliner in her ICU room. Patient appears to be in no acute distress HEENT: Head is atraumatic, normocephalic. Pupils equal, round. Sclerae is anicteric. Patient is on nasal cannula oxygen, small dressing over tracheostomy site. NECK: Supple. No JVD. No lymphadenopathy. No thyromegaly. LUNGS: Lung sounds are clear to auscultation. No intercostal retractions. HEART: Regular rate and rhythm. No murmur. monitor worker sinus tachycardia. ABDOMEN: Soft. Bowel sounds are present. No masses. No tenderness. EXTREMITIES: Trace bilateral pedal edema. No calf tenderness. NEUROLOGICAL: Patient is awake, alert, oriented x3 and able to follow commands, significant weakness. ASSESSMENT AND PLAN 1. Acute hypoxic respiratory failure secondary to Covid 19 pneumonia and possible bacterial pneumonia. Patient was intubated on September 11. She is status post 1 dose of Remdesivir and 1 dose of Tocilizumab. Continue Ventolin inhaler 4 times daily, Lovenox 30 mg subcu daily, supplements. Status post PEG tube and trach. Completed antibiotics. 2. Acute diabetic ketoacidosis secondary to Covid 19 pneumonia, uncontrolled with hyperglycemia. Levemir discontinued, continue scheduled NovoLog 7 units every 6 hours and continue NovoLog scale every 6 hours. 3. Metabolic encephalopathy secondary to Covid 19 and DKA. 4. Sepsis and septic shock secondary to Covid 19 pneumonia with multiorgan failure. Continue as in #1. 5. Acute metabolic acidosis secondary to acute DKA, Covid 19 and acute kidney injury. Renvela 1600 mg q6h. 6. Diabetes mellitus type 2 uncontrolled with A1c 13.6. Continue as above. 7. Hypophosphatemia status post replacement. 8. Hyperkalemia secondary to DKA, resolved. 9. Sinus tachycardia secondary to sepsis, volume deficiency. Patient is on Cardizem 60 mg 3 times daily, and Lopressor 50 mg twice daily. 10. Acute kidney injury secondary to ATN secondary to Covid 19 and DKA. Continue hemodialysis on Friday. 11. Citrobacter pneumonia versus MRSA pneumonia. Completed course of antibiotics. 12. Hypertension. 13. Morbid obesity with BMI of 53. 14. Situational depression and anxiety. Seroquel discontinued, continue Lexapro 10 mg daily and Xanax 0.25 mg twice daily as needed. 15. DVT prophylaxis. Lovenox. 16. GI prophylaxis. Protonix 40 mg IV push daily. 17. Stage IV pressure ulcer to trach site. Currently utilizing absorptive silver dressing. 18. Stage II decubitus ulcer to coccyx. 19. Critical illness polyneuropathy and myopathy. Continue physical therapy. 20. Anemia of chronic disease. Transfuse total of 3 units of packed RBCs, continue Aranesp 40 g every 7 days. CODE STATUS: Full code Prognosis guarded. DISCHARGE PLAN Acute or subacute rehab, anticipate discharge by Friday Impression and plan of care have been directed as dictated by the signing physician. Kimberly Boswell nurse practitioner acting as scribe for signing physic mariely. Objective - Vital Signs Vital signs: Vital Signs Temp 98.2 F 11/15/20 07:00 Pulse 111 H 11/15/20 07:00 Resp 18 11/15/20 07:00 BP 150/62 11/15/20 07:00 Pulse Ox 97 11/15/20 07:00 Intake & Output 11/14/20 11/15/20 11/15/20 18:59 06:59 18:59 Intake Total 360 Output Total 900 Balance -540 Weight 99.9 kg Intake: Oral 360 Output: Urine 900 Other: Voiding Method Bedside Commode Bedside Commode Bedpan Bedpan # Voids 1 1 # Bowel Movements 2 1 ABP, PAP, CO, CI - Last Documented Arterial Blood Pressure 136/76 - Labs CBC & Chem 7: 11/15/20 03:07 11/15/20 03:07 Labs: Abnormal Lab Results - Last 24 Hours (Table) 11/14/20 11/14/20 11/14/20 Range/Units 11:46 16:48 20:30 WBC (3.8-10.6) k/uL RBC (3.80-5.40) m/uL Hgb (11.4-16.0) gm/dL Hct (34.0-46.0) % RDW (11.5-15.5) % Neutrophils # (1.3-7.7) k/uL Eosinophils # (0-0.7) k/uL Sodium (137-145) mmol/L Chloride (98-107) mmol/L Carbon Dioxide (22-30) mmol/L BUN (7-17) mg/dL Creatinine (0.52-1.04) mg/dL Glucose (74-99) mg/dL POC Glucose (mg/dL) 159 H 191 H 105 H (75-99) mg/dL 11/15/20 11/15/20 11/15/20 Range/Units 03:07 03:07 07:08 WBC 11.0 H (3.8-10.6) k/uL RBC 2.81 L (3.80-5.40) m/uL Hgb 7.7 L (11.4-16.0) gm/dL Hct 24.9 L (34.0-46.0) % RDW 17.5 H (11.5-15.5) % Neutrophils # 7.8 H (1.3-7.7) k/uL Eosinophils # 0.9 H (0-0.7) k/uL Sodium 129 L (137-145) mmol/L Chloride 92 L (98-107) mmol/L Carbon Dioxide 31 H (22-30) mmol/L BUN 33 H (7-17) mg/dL Creatinine 2.74 H (0.52-1.04) mg/dL Glucose 168 H (74-99) mg/dL POC Glucose (mg/dL) 195 H (75-99) mg/dL
--- NOTE | 2020-11-15 11:54 | PN ---
PROGRESS NOTE HISTORY: Patient is seen for followup for acute kidney injury. Patient is maintained on dialysis on a Friday, Friday, Friday schedule. There has been some recovery of renal function. Patient had significant amount of urine documented yesterday at about 900 mL in the ICU. I do not see any further documentation today. She is scheduled for hemodialysis today. PHYSICAL EXAMINATION: Blood pressure is 150/62, heart rate 111 per minute. She is afebrile. Examination of the heart S1, S2. Examination of the lungs, bilateral breath sounds are heard. Abdomen is soft, nontender. Examination lower extremities shows trace edema bilaterally. DATABASE SOFTWARE TECHNICIAN exam grossly intact. LABS: Sodium 129, potassium 3.6, chloride 92, CO2 is 31, BUN 33, creatinine 2.74, hemoglobin 7.7 g/dL. ASSESSMENT: 1. Acute kidney injury ATN currently nonoliguric and possibly improving as creatinine is down today to 0.7 from 3.1 on November 13. The patient was not dialyzed in between. Her urine output has improved, however, I will arrange for dialysis today but we may need to hold off on Friday depending on the urine output and repeat labs. 2. Volume overload currently significantly improved. 3. Covid pneumonia, now improved. 4. Acute hypoxic respiratory failure status post trach and PEG. Etiology core with pneumonia, ARDS, secondary bacterial pneumonia, currently off the tracheostomy and tolerating oral intake. 5. Hyponatremia, mostly hypervolemic. Continue with oral Lasix. 6. Anemia with frequent packed RBCs transfusion. No active bleeding noted. Maintained on Aranesp. PLAN: Hemodialysis today, but we may hold off on dialysis on Friday and check accurate I and Os and monitor for recovery of renal function. MMODL / IJN: [id number] /
--- NOTE | 2020-11-15 11:58 | P.PN ---
Subjective Progress Note Date: 11/15/20 CHIEF COMPLAINT: COVID-19 pneumonia HISTORY OF PRESENT ILLNESS: Patient has been transferred to regular medical floor. She is status post tracheostomy and PEG tube placement with Dr. Zhang. Patient is status post decannulation yesterday by Dr. Mcfarland. Patient is tolerating her tube feeds. She is eating a small amount of food. She is currently having hemodialysis. She sitting up in bed. She reports having small bowel movements. Afebrile. WBC is 11 PHYSICAL EXAM: VITAL SIGNS: Reviewed. GENERAL: Well-developed in no acute distress. HEENT: No sclera icterus. Extraocular movements grossly intact. Moist buccal mucosa. Head is atraumatic, normocephalic. ABDOMEN: Soft. Nondistended. Nontender. PEG tube site clean dry and intact NEUROLOGIC: Awake and opens eyes ASSESSMENT: 1. Acute hypoxic respiratory failure with prolonged mechanical ventilation due to COVID-19 pneumonia status post tracheostomy placement. Now status post decannulation 2. Severe protein calorie malnutrition status post PEG tube placement 3. Pressure wound at tracheostomy site PLAN: -Continue supportive care -Continue wound care at tracheostomy site -Patient is stable for discharge from surgical standpoint -Continue to work with physical therapy -Encouraged oral intake -Social work continuing to work on discharge planning Physician Senior Ui Developer note has been reviewed by physician. Signing provider agrees with the documented findings, assessment, and plan of care. Objective - Vital Signs Vital signs: Vital Signs Temp 98.2 F 11/15/20 07:00 Pulse 111 H 11/15/20 07:00 Resp 18 11/15/20 07:00 BP 150/62 11/15/20 07:00 Pulse Ox 97 11/15/20 07:00 Intake & Output 11/14/20 11/15/20 11/15/20 18:59 06:59 18:59 Intake Total 360 Output Total 900 Balance -540 Weight 99.9 kg Intake: Oral 360 Output: Urine 900 Other: Voiding Method Bedside Commode Bedside Commode Bedpan Bedpan # Voids 1 1 # Bowel Movements 2 1 ABP, PAP, CO, CI - Last Documented Arterial Blood Pressure 136/76 - Labs CBC & Chem 7: 11/15/20 03:07 11/15/20 03:07 Labs: Abnormal Lab Results - Last 24 Hours (Table) 11/14/20 11/14/20 11/15/20 Range/Units 16:48 20:30 03:07 WBC 11.0 H (3.8-10.6) k/uL RBC 2.81 L (3.80-5.40) m/uL Hgb 7.7 L (11.4-16.0) gm/dL Hct 24.9 L (34.0-46.0) % RDW 17.5 H (11.5-15.5) % Neutrophils # 7.8 H (1.3-7.7) k/uL Eosinophils # 0.9 H (0-0.7) k/uL Sodium (137-145) mmol/L Chloride (98-107) mmol/L Carbon Dioxide (22-30) mmol/L BUN (7-17) mg/dL Creatinine (0.52-1.04) mg/dL Glucose (74-99) mg/dL POC Glucose (mg/dL) 191 H 105 H (75-99) mg/dL 11/15/20 11/15/20 11/15/20 Range/Units 03:07 07:08 11:28 WBC (3.8-10.6) k/uL RBC (3.80-5.40) m/uL Hgb (11.4-16.0) gm/dL Hct (34.0-46.0) % RDW (11.5-15.5) % Neutrophils # (1.3-7.7) k/uL Eosinophils # (0-0.7) k/uL Sodium 129 L (137-145) mmol/L Chloride 92 L (98-107) mmol/L Carbon Dioxide 31 H (22-30) mmol/L BUN 33 H (7-17) mg/dL Creatinine 2.74 H (0.52-1.04) mg/dL Glucose 168 H (74-99) mg/dL POC Glucose (mg/dL) 195 H 136 H (75-99) mg/dL
[2020-11-15] MEDS: DARBEPOETIN ALFA 40 MCG/0.4 ML SYRINGE SQ SCH (12:48)
--- NOTE | 2020-11-15 13:20 | P.PN ---
Subjective Progress Note Date: 11/15/20 Principal diagnosis: Acute hypoxemic respiratory failure secondary COVID-19 pneumonia, DKA The patient is seen today 11/15/2020 in follow-up on the regular medical floor. She is currently sitting up in bed. Awake and alert in no acute distress. She has been de cannulated on 11/14/2020. Dressing over the tracheostomy site dry and intact. She is maintaining good O2 saturations in the upper 90s on 3 L/m per nasal cannula. Speaking well. Swallowing well. Appetite remains poor. Continued on PEG tube feedings. She's afebrile. Hemodynamically stable. White count 11.0. Hemoglobin 7.7. Platelets 237. Sodium 129. Potassium 3.6. Creatinine 2.74. Glucose 168. She remains on Lovenox for DVT prophylaxis. Objective - Vital Signs Vital signs: Vital Signs Temp 98.2 F 11/15/20 07:00 Pulse 111 H 11/15/20 07:00 Resp 18 11/15/20 07:00 BP 150/62 11/15/20 07:00 Pulse Ox 97 11/15/20 07:00 Intake & Output 11/14/20 11/15/20 11/15/20 18:59 06:59 18:59 Intake Total 360 Output Total 900 Balance -540 Weight 99.9 kg Intake: Oral 360 Output: Urine 900 Other: Voiding Method Bedside Commode Bedside Commode Bedpan Bedpan # Voids 1 1 # Bowel Movements 2 1 ABP, PAP, CO, CI - Last Documented Arterial Blood Pressure 136/76 - Exam GENERAL EXAM: Awake, very pleasant 35-year-old female patient, de-cannulated, speaking well. On 3 L nasal cannula. HEAD: Normocephalic/atraumatic. EYES: Normal reaction of pupils, equal size. Conjunctiva pink, sclera white. NOSE: Clear with pink turbinates. THROAT: No erythema or exudates. NECK: No masses, no JVD, no thyroid enlargement, no adenopathy. Dressing over p revious tracheostomy site dry and intact. CHEST: No chest wall deformity. Symmetrical expansion. Patient has right upper chest permacath hemodialysis catheter in place LUNGS: Equal air entry with bilateral crackles CVS: Regular rate and rhythm, normal S1 and S2, no gallops, no murmurs, no rubs ABDOMEN: Soft, nontender. No hepatosplenomegaly, normal bowel sounds, no guarding or rigidity. Peg tube in place, and is receiving tube feedings in the form of Nepro at 34 ML per hour EXTREMITIES: No clubbing, no edema edema involving upper and lower extremities noted no cyanosis, 2+ pulses and upper and lower extremities. MUSCULOSKELETAL: Muscle strength and tone normal. SPINE: No scoliosis or deformity SKIN: No rashes CENTRAL NERVOUS SYSTEM: awake and alert, oriented 3, communicates by pounding words, responding appropriately moving all 4 extremities - Labs CBC & Chem 7: 11/15/20 03:07 11/15/20 03:07 Labs: Abnormal Lab Results - Last 24 Hours (Table) 11/14/20 11/14/20 11/15/20 Range/Units 16:48 20:30 03:07 WBC 11.0 H (3.8-10.6) k/uL RBC 2.81 L (3.80-5.40) m/uL Hgb 7.7 L (11.4-16.0) gm/dL Hct 24.9 L (34.0-46.0) % RDW 17.5 H (11.5-15.5) % Neutrophils # 7.8 H (1.3-7.7) k/uL Eosinophils # 0.9 H (0-0.7) k/uL Sodium (137-145) mmol/L Chloride (98-107) mmol/L Carbon Dioxide (22-30) mmol/L BUN (7-17) mg/dL Creatinine (0.52-1.04) mg/dL Glucose (74-99) mg/dL POC Glucose (mg/dL) 191 H 105 H (75-99) mg/dL 11/15/20 11/15/20 11/15/20 Range/Units 03:07 07:08 11:28 WBC (3.8-10.6) k/uL RBC (3.80-5.40) m/uL Hgb (11.4-16.0) gm/dL Hct (34.0-46.0) % RDW (11.5-15.5) % Neutrophils # (1.3-7.7) k/uL Eosinophils # (0-0.7) k/uL Sodium 129 L (137-145) mmol/L Chloride 92 L (98-107) mmol/L Carbon Dioxide 31 H (22-30) mmol/L BUN 33 H (7-17) mg/dL Creatinine 2.74 H (0.52-1.04) mg/dL Glucose 168 H (74-99) mg/dL POC Glucose (mg/dL) 195 H 136 H (75-99) mg/dL Assessment and Plan Assessment: 1 Acute hypoxic respiratory failure secondary to COVID-19 pneumonia/ARDS, transferred to the intensive care unit on 09/11/2020 and intubated and placed on mechanical ventilator on 09/11/2020. Patient received 1 dose of Remdesivir on 09/11/2020, however based on her quick progression of her hypoxic respiratory failure she received Tocilizumab 800 mg on 09/11/2020. Tracheostomy and PEG tube placed on 09/18/2020. Patient was successfully weaned from the ventilator support, she status post tracheostomy and PEG tube insertion, subsequent decannulation on 11/14/2020. Speaking well. PEG tube remains in place. 2 Acinetobacter baumannii infection of the trach site. Completed a course of cefepime 3 Acute kidney injury related to ATN, nephrology has been consulted, ultrasound of the kidneys showed no evidence of hydronephrosis. Patient was initiated on hemodialysis on 09/14/2020. Permacath placed 09/20/2020. Patient is undergoing daily dialysis. 4 Diabetes mellitus, insulin-dependent and the patient is currently on insulin sliding scale coverage with NovoLog 5 Obesity with a BMI is down to 50 6 Hypotension, recovered and the patient is currently on no pressors 7 Corneal injury, punctate keratitis, left eye, improved 8 Anemia of chronic disease, requiring transfusions of packed red blood cells, hemoglobin is 7.7 9 Generalized anxiety disorder. 10 Hyponatremia, current sodium 129 11 Leukocytosis, resolved 13 Encephalopathy/delirium , improved and resolved 14 History of hypertension Plan: The patient was seen and evaluated by Dr. Donis Leon from the pulmonary standpoint, on 3 L Needs increased encouragement to eat She is tolerating a soft diet with PEG tube feedings continue Awaiting ECF placement with hemodialysis We'll continue to follow I, the cosigning physician, performed a history & physical examination of the patient. Lungs sounds are clear but diminished. Maintaining good O2 saturations in the 90s on 3 L/m per nasal cannula. I discussed the assessment and plan of care with my nurse practitioner, Kyara Concepcion. I attest to the above note as dictated by her.
[2020-11-15] MEDS: HYDROcodone/APAP 7.5-325MG 1 EACH TAB PO PRN ×2 (14:25→21:28)
[2020-11-15] MEDS: AMMONIUM LACTATE 12% LOTION 225 GM BTL TOPICAL SCH ×2 (14:25→21:13)
[2020-11-15 16:40] LABS: Glucose,Whole Blood 158 mg/dL (75-99)
[2020-11-15 20:57] LABS: Glucose,Whole Blood 151 mg/dL (75-99)
[2020-11-16] MEDS: SEVELAMER 800 MG TAB PO SCH ×3 (05:32→17:01)
[2020-11-16] MEDS: HYDROcodone/APAP 7.5-325MG 1 EACH TAB PO PRN ×2 (05:32→21:13)
[2020-11-16 07:15] LABS: Glucose,Whole Blood 197 mg/dL (75-99)
[2020-11-16] MEDS: PANTOPRAZOLE 40 MG TABLET PO SCH (07:34)
[2020-11-16] MEDS: INSULIN ASPART (NovoLOG) 100 UNIT/ML VIAL SQ SCH ×8 (07:35→21:13)
[2020-11-16] MEDS: hydrALAZINE HCL 50 MG TAB PO SCH ×3 (10:01→20:21)
[2020-11-16] MEDS: DILTIAZEM ORAL 60 MG TAB PO SCH ×3 (10:01→20:18)
[2020-11-16] MEDS: AMMONIUM LACTATE 12% LOTION 225 GM BTL TOPICAL SCH ×2 (10:01→20:19)
[2020-11-16] MEDS: NYSTATIN 100,000 UNIT/GM POWD 15 GM TOPICAL SCH ×3 (10:01→20:19)
[2020-11-16] MEDS: ESCITALOPRAM 10 MG TAB PO SCH (10:01)
[2020-11-16] MEDS: METOPROLOL TARTRATE 50 MG TAB PO SCH ×2 (10:01→20:18)
[2020-11-16] MEDS: HYDROPHILIC CREAM 180 GM TUBE TOPICAL SCH (10:01)
[2020-11-16] MEDS: LACTULOSE 20 GM/30 ML CUP PO SCH ×2 (10:01→20:17)
[2020-11-16] MEDS: SENNOSIDES 8.6 MG TAB PO SCH ×2 (10:01→20:18)
[2020-11-16] MEDS: ACETAMINOPHEN TAB 325 MG TAB PO PRN (10:01)
[2020-11-16] MEDS: ENOXAPARIN 30 MG/0.3 ML SYRINGE SQ SCH (10:01)
[2020-11-16] MEDS: ASCORBIC ACID 500 MG TAB PO SCH ×2 (10:01→20:18)
[2020-11-16] MEDS: guaiFENesin 600 MG TABLET.ER PO SCH ×2 (10:01→20:18)
[2020-11-16 11:24] LABS: Glucose,Whole Blood 148 mg/dL (75-99)
--- NOTE | 2020-11-16 11:38 | P.PN ---
Subjective Progress Note Date: 11/16/20 Principal diagnosis: Acute hypoxemic respiratory failure secondary COVID-19 pneumonia, DKA The patient is seen today 11/15/2020 in follow-up on the regular medical floor. She is currently sitting up in bed. Awake and alert in no acute distress. She has been de cannulated on 11/14/2020. Dressing over the tracheostomy site dry and intact. She is maintaining good O2 saturations in the upper 90s on 3 L/m per nasal cannula. Speaking well. Swallowing well. Appetite remains poor. Continued on PEG tube feedings. She's afebrile. Hemodynamically stable. White count 11.0. Hemoglobin 7.7. Platelets 237. Sodium 129. Potassium 3.6. Creatinine 2.74. Glucose 168. She remains on Lovenox for DVT prophylaxis. The patient is seen today 11/16/2020 in follow-up on the regular medical floor. She is sitting up at the bedside. Awake and alert in no acute distress. She is doing very well. She is getting stronger every day. She is maintaining O2 saturations in the low 90s on 5 L high flow nasal cannula. Dressing over tracheostomy site is clean and dry. Blood glucose 148. She remains on Lovenox for DVT prophylaxis. The patient's urine output is improving. Creatinine improving. Nephrology to decide if hemodialysis is needed tomorrow. Her insurance authorization is currently pending for the [facility] rehabilitation versus [facility] with HD planned for Friday if to be continued. Encouraged to increase oral intake. Objective - Vital Signs Vital signs: Vital Signs Temp 98.7 F 11/16/20 08:26 Pulse 113 H 11/16/20 08:26 Resp 17 11/16/20 08:26 BP 125/79 11/16/20 08:26 Pulse Ox 90 L 11/16/20 08:26 Intake & Output 11/15/20 11/16/20 11/16/20 18:59 06:59 18:59 Intake Total 300 740 Output Total 2800 1100 Balance -2500 -360 Intake: Oral 740 Hemodialysis 300 Output: Stool 1100 Hemodialysis 2800 Other: Voiding Method Bedside Commode Bedside Commode Bedside Commode Bedpan Bedpan Bedpan # Voids 1 # Bowel Movements 1 ABP, PAP, CO, CI - Last Documented Arterial Blood Pressure 136/76 - Exam GENERAL EXAM: Awake, very pleasant 35-year-old female patient, de-cannulated, speaking well. On 5 L nasal cannula. HEAD: Normocephalic/atraumatic. EYES: Normal reaction of pupils, equal size. Conjunctiva pink, sclera white. NOSE: Clear with pink turbinates. THROAT: No erythema or exudates. NECK: No masses, no JVD, no thyroid enlargement, no adenopathy. Dressing over previous tracheostomy site dry and intact. CHEST: No chest wall deformity. Symmetrical expansion. Patient has right upper chest permacath hemodialysis catheter in place LUNGS: Equal air entry with bilateral crackles CVS: Regular rate and rhythm, normal S1 and S2, no gallops, no murmurs, no rubs ABDOMEN: Soft, nontender. No hepatosplenomegaly, normal bowel sounds, no guardi ng or rigidity. Peg tube in place, and is receiving tube feedings supplementation EXTREMITIES: No clubbing, no edema edema involving upper and lower extremities noted no cyanosis, 2+ pulses and upper and lower extremities. MUSCULOSKELETAL: Muscle strength and tone normal. SPINE: No scoliosis or deformity SKIN: No rashes CENTRAL NERVOUS SYSTEM: Awake and alert, oriented 3, responding appropriately, moving all 4 extremities - Labs CBC & Chem 7: 11/15/20 03:07 11/15/20 03:07 Labs: Abnormal Lab Results - Last 24 Hours (Table) 11/15/20 11/15/20 11/15/20 Range/Units 11:28 16:19 20:55 POC Glucose (mg/dL) 136 H 158 H 151 H (75-99) mg/dL 11/16/20 11/16/20 Range/Units 06:56 11:18 POC Glucose (mg/dL) 197 H 148 H (75-99) mg/dL Assessment and Plan Assessment: 1 Acute hypoxic respiratory failure secondary to COVID-19 pneumonia/ARDS, transferred to the intensive care unit on 09/11/2020 and intubated and placed on mechanical ventilator on 09/11/2020. Patient received 1 dose of Remdesivir on 09/11/2020, however based on her quick progression of her hypoxic respiratory failure she received Tocilizumab 800 mg on 09/11/2020. Tracheostomy and PEG tube placed on 09/18/2020. Patient was successfully weaned from the ventilator support, she status post tracheostomy and PEG tube insertion, subsequent decannulation on 11/14/2020. Speaking well. PEG tube remains in place. 2 Acinetobacter baumannii infection of the trach site. Completed a course of cefepime 3 Acute kidney injury related to ATN, nephrology has been consulted, ultrasound of the kidneys showed no evidence of hydronephrosis. Patient was initiated on hemodialysis on 09/14/2020. Permacath placed 09/20/2020. Patient is undergoing daily dialysis. 4 Diabetes mellitus, insulin-dependent and the patient is currently on insulin sliding scale coverage with NovoLog 5 Obesity with a BMI is down to 50 6 Hypotension, recovered and the patient is currently on no pressors 7 Corneal injury, punctate keratitis, left eye, improved 8 Anemia of chronic disease, requiring transfusions of packed red blood cells, hemoglobin is 7.7 9 Generalized anxiety disorder. 10 Hyponatremia, current sodium 129 11 Leukocytosis, resolved 13 Encephalopathy/delirium , improved and resolved 14 History of hypertension Plan: The patient was seen and evaluated by Dr. Donis Leon from the pulmonary standpoint, on 5 L She is tolerating a soft diet with PEG tube feedings Awaiting inpatient rehabilitation versus ECF placement with her perhaps without hemodialysis We'll continue to follow I, the cosigning physician, performed a history & physical examination of the patient. Lungs sounds with bilateral crackles, diminished. Maintaining good O2 saturations in the 90s on 5 L/m per nasal cannula. I discussed the assessment and plan of care with my nurse practitioner, Kyara Concepcion. I attest to the above note as dictated by her.
--- NOTE | 2020-11-16 12:21 | PN ---
PROGRESS NOTE Patient is seen for followup for acute kidney injury. She has been hemodialysis dependent with oliguric ATN. However, she has had increase in urine output over the last few days. Again, the urine output was not accurately charted, however, patient states she has been voiding, but she did not void yesterday after dialysis. We had about 2.8 L of fluid removed and patient stated that she did feel sick after dialysis yesterday. Her creatinine has been around 2-3 mg/dL now. Volume status has significantly improved as compared to 3-4 weeks ago. PHYSICAL EXAMINATION: On examination today, blood pressure is 125/79, heart rate 113 per minute. Patient is afebrile. Examination of the heart S1, S2. Examination of lungs, decreased breath sounds at the bases. Abdomen is soft, nontender. Examination of lower extremities shows no evidence of edema. DIRECTOR GLOBAL STRATEGIC PUBLISHER SALES exam grossly intact. LAB: From yesterday on November 15 show sodium 129, potassium 3.6, BUN 33, creatinine 2.7, hemoglobin 7.7 g/dL. ASSESSMENT: 1. Acute kidney injury, ATN, currently nonoliguric with possible recovery of kidney function. I will continue with oral Lasix but hold off on dialysis tomorrow and nursing staff is again advised to monitor urine output accurately. Continue to avoid any nephrotoxic agents. 2. Status post vent dependent respiratory failure secondary to COVID pneumonia, ARDS and secondary bacterial pneumonia as well. The patient is off the vent, her trach has been removed and she has been doing quite well. 3. Anemia with no active bleeding noted, multifactorial, maintained on Aranesp. 4. Severe volume overload now significantly improved. 5. Type 2 diabetes. PLAN: Hold dialysis tomorrow. Maintain oral Lasix. Check accurate I's and O's and repeat labs in a.m. MMODL / IJN: [id number] /
--- NOTE | 2020-11-16 12:26 | XR ---
EXAMINATION TYPE: XR chest 2V DATE OF EXAM: 11/16/2020 COMPARISON: 11/11/2020 INDICATION: Pneumonia, cough TECHNIQUE: Frontal and lateral views of the chest are obtained. FINDINGS: The heart size is enlarged. The pulmonary vasculature is prominent. Diffuse increased lung markings are present.. Double-lumen catheter is present with the tip in the s uperior vena cava region. IMPRESSION: 1. Findings can be compatible with congestive heart failure in the appropriate clinical setting.
--- NOTE | 2020-11-16 12:37 | P.PN ---
Subjective Progress Note Date: 11/16/20 35-year-old female patient of Dr. Arroyo with past medical history of type 2 diabetes comes in with acute shortness of breath associated with high light sugars. Patient on admission was found to have a fever of 101.5 pulse rate 125 respiratory rate 20. Blood pressure 132/106. On chest x-ray obtained in the ER suggestive of bilateral infiltrates concerning for call with pneumonia. COVID PCR was positive. On admissions patient had an ABG with a pH of 7.14 pCO2 of 20, pO2 of 59, bicarb of 7. Patient's blood sugar on admission was 424 on assessment today patient's blood work patient had a sodium 135 potassium 5.4 chloride 123 bicarb less than 5 and creatinine 0.73. D-dimer was elevated on admission patient 9 28 patient given 1 L of IV fluids followed by normal saline running at 200 mL/h. Patient was positive for acetone on admission. She will anion gap closed and was switched to D5NS. Insulin drip was continued during the night and was switched to patient's home medication this morning. One dose of remdesiver was ordered. Apparently around noon, A- team was called on the patient secondary to hypoxia patient's oxygen saturation dropped to the 70s and 80s on 100% nonrebreather. Patient was switched to BiPAP on 18/12 and is doing better o FiO2 of 80%. ABG was obtained and ph was 7. 14 pCO2 of 28 bicarb of 7 pO2 of 17. Patient noted to have uncompensated metabolic acidosis with compensated respiratory alkalosis. Stat dose of 1 amp bicarb was given and followed by sodium bicarbonate drip. Insulin drip restarted. Patient's initiated on dexamethasone 6 mg IV twice a d ay. Potassium phosphate ordered as phosphorus is low. Patient's repeat blood gases suggest a pH of 7.25, CO2 32 pO2 of 72 bicarb 14. I will not normal saline at 100 mL/h as patient's anion gap has increased. Patient given 1 dose of 2 mg of morphine with improvement in respiratory rate. One dose of Ativan 0.5 mg was given. Xanax 0.25 twice a day along with Ativan 0.5 IV every 6 hours ordered for the patient. Vitals were evaluated patient pulse 129 [id number]. She was moved to the ICU. Precedex drip was initiated. Lopressor was initiated at 25 twice a day. Metoprolol tartrate 5 mg IV every 6 hours. Systolic blood pressure more than 160. Started chest x-ray was obtained and suggest stable bilateral consolidation suggestive of COVID-19 pneumonia. 09/12 patient is seen in the ICU is currently mechanically ventilated and sedated on vent settings of respiratory rate 36, tidal volume 375 FiO2 80% PEEP of 18.. Vital signs reviewed patient had a temp of 100.4 pulse 150 respiratory rate 36 oxygen saturation 95% on 80% on fio2 .'s labs are reviewed which patient had a d-dimer 1.84 that is increased to 14.3. Arterial Blood gas suggest ph 7.35, CO2 40, po2 62, . Her BMP suggest a sodium 135 potassium 3.7 chloride 112 bicarb 21 creatinine 1.57 for calcitonin is 3.5 CRP is increased from 8.78.2 LDH is increased to 2614. Patient remains on Pneumovax, propofol drip. Lovenox increased to 50 subcu twice a day. Patient received 2 L of IV fluids. Continue IV fluids at 100 mL/h. Bicarb drip discontinued patient initiated on Zosyn 3.375 every 8 hours. Continue insulin drip at 4 units per hour. Patient is currently in prone positioning 09/13: Patient evaluated in the ICU remains on Ventilation continues to be sedated, in prone position. Vent settings are respiratory rate 36, tidal vital 375, FiO2 70% PEEP of 18. ABG shows pO2 of 82, PCO2 of 39, pH is 7.19. Latest labs show WBC 11.1, hemoglobin 13.2, d-dimer still pending, but yesterday was up to 14.3. Creatinine up to 3.4, BUN 24 sodium 137, potassium 4.0. Patient's urine output has been low, nephrology on consult. Bicarb drip increased to 100 miles an hour, receiving another liter of normal saline, she did have a ultrasound that showed unremarkable bilateral kidneys. Repeat chest x-ray showed bilateral lung infiltrates that are stable. Anion gap has closed, will start Lantus 10 units at at bedtime Novolog every 6 hours. 09/14: Patient is seen in the ICU, still currently mechanically ventilated and sedated. She continues in the prone position. Her oxygen quickly drops if she is not in prone. Patient's kidney function has worsened. Laboratory values show creatinine of 4.87, BUN 33, LDH 2191, C-reactive protein 2.7. ABG shows pH 7.32, pO2 of 60, pCO2 43. Patient is making almost no urine overnight. Nephrology is following patient continues on cefepime for urinary tract infectio n, culture is still pending. Vascular has been consulted for placement of temporary hemodialysis catheter for plans for dialysis. 09/15: Patient evaluated in the ICU, continues to be mechanically ventilated and sedated on assist control ventilation rate of 36, tidal volume 375, FiO2 100% and PEEP of 18. ABG today shows pO2 58, pCO2 of 45, and pH 7.35. She continues on tube feedings. Yesterday patient underwent ultrasound-guided right internal jugular non-tunneled hemodialysis catheter placement. Patient underwent hemodialysis treatment last night and plans have another hemodialysis treatment today. She continues to make almost no urine. She continues on cefepime for antibiotic coverage, and continues on Decadron and Lovenox. 09/16: Patient seen on follow-up remains in the ICU mechanically ventilated and sedated. She continues on assist control rate of 36, tidal volume 375, FiO2 10 0% and PEEP of 20. PEEP had to be increased due to patient had to be in supine position for dialysis, will go back to prone position once dialysis is complete. ABG shows pH 7.32, pCO2 49, PaO2 61. Laboratory values showed WBC 11.2, hemoglobin 11, sodium 134, creatinine 4.44, BUN 38. Urine culture shows no growth, blood cultures show no growth to date. Repeat chest x-ray shows bilateral pleural effusions, correlate for ARDS, pulmonary edema, diffuse pneumonia, findings are stable from last exam. Patient does not require any pressors, blood pressure 133/57, heart rate 78. 5/16: Patient was evaluated in the ICU today for follow-up. She continues to be intubated and on mechanical ventilation. Current vent settings are tidal volume 375, FiO2 100% and PEEP of 20. ABG shows pH 7.37, pCO2 40, pO2 102. She continues with intermittent prone positioning. Patient continues to have almost no urine output, maintained on dialysis. Patient received dialysis yesterday without complication. Laboratory values revealed WBC 10.3, hemoglobin 10.4, sodium 132, potassium 3.1, BUN 33, creatinine 4.29, LDH 1913, C-reactive protein 1.3. Urine and sputum cultures are negative, blood cultures show no growth to date. Consult placed to dietary to start TPN[ ] 09/18: She remains in the intensive care unit intubated and on mechanical ventilation with tidal volume 375, FiO2 60 and PEEP of 20. Patient is being prone to daily at approximately 16 hours per day. Pulmonary medicine has added in Dr. Zhang to do PEG tube and trach today. Patient is not on vasopressors. Repeat blood work reveals WBC 12.6, hemoglobin 9.8, platelet count 212. Sodium 133, potassium 3.2, chloride 102, CO2 21, BUN 35 and creatinine 4.12. Blood sugar 126. Patient underwent hemodialysis yesterday with removal of 2 L and is scheduled again today with goal of 2-3 L and is scheduled again tomorrow. 09/19: She is scheduled for hemodialysis today and is off fentanyl temporarily. Patient is status post trach and PEG tube yesterday. And she remains on mechanical ventilation. Pulse ox 93-95%. She has been afebrile, heart rate 64, respiratory rate 36, blood pressure 115/50. Fentanyl is off to improve blood pressure for hemodialysis which is scheduled for today. Contacted vascular surgery about permanent hemodialysis catheter. Repeat blood work reveals WBC 14.3, hemoglobin 9.6, platelet count 200. D-dimer 6.48. LDH 1686. C-reactive protein 1.1. BUN 34 creatinine 3.81. Sodium 130, potassium 3.5, chloride 101, CO2 18. Blood sugars running between 101 198. Plan is to wean off Pneumovax today. Patient remains on insulin drip. Repeat chest x-ray reveals bilateral multifocal confluent opacities consistent with COVID-19. Some improved aeration periphery of the left lung and worsening opacities throughout the right lung. 09/20: She remains in the intensive care unit on mechanical ventilation. She has been afebrile, heart rate 65, respiratory rate 37, blood pressure 121/70, pulse ox 91-99%. Repeat blood work reveals WBC 14.5, hemoglobin 9.1, platelet count 216. D-dimer 6.13. Sodium 133, potassium 3.1, chloride 102, CO2 18, BUN 35 and creatinine 4.27. Blood sugars running between 128 and 143. LDH 1717. C- reactive protein 1.7. Patient remains on insulin drip which will be transit ioned to NovoLog scale every 6 hours. Patient is scheduled for permanent hemodialysis catheter placement today with vascular surgery. Repeat chest x-ray reveals stable diffuse bilateral interstitial and airspace disease. Possible small right effusion. His work is following for transfer to drug safety data management specialist care facility. Do not anticipate discharge until next week. 09/21: Patient is undergoing hemodialysis. She remains on mechanical ventilation with tidal volume 375, FiO2 down to 45 and PEEP was decreased to 15. Patient is continued on propofol, fentanyl drips. She is on tube feedings at goal. Patient was taken off insulin drip yesterday and on scale only but blood sugars are running in the 200s, Levemir scheduled at bedtime will be added. Other blood work reveals WBC 13.3, hemoglobin 8.7, platelet count 192. Sodium 137, potassium 3.6, chloride 107, CO2 18, BUN 34 and creatinine 4.21. Repeat chest x-ray is stable. 09/22: She remains in the intensive care on mechanical ventilation with tidal volume 375, FiO2 of 50 and PEEP of 10. Pulse ox is running 96%. She is afebrile, heart rate in the 50s, respiratory rate 36, blood pressure 100/64. Repeat blood work reveals WBC 16.5, hemoglobin 8.9, platelet count 213. Sodium 134, potassium 3.7, chloride 103, CO2 21, BUN 34 and creatinine 3.89. Blood sugars running in the 200s to 324. Levemir increased to 16 units at bedtime and continue NovoLog scale every 6 hours. Patient is on tube feedings at goal. She has a Haley catheter in with a scant amount of dark/brown urine. Fecal management system is in place. Repeat chest x-ray reveals diffuse bilateral airspace infiltrates persist unchanged. Patient is scheduled for hemodialysis tomorrow morning on Friday. 09/23: Patient remains on mechanical ventilation with tidal volume 3.75, FiO2 50 and PEEP of 10. cardiac monitor sinus rhythm. She has no urine output. Fecal management system is in place. She is undergoing dialysis at this time with plan for removal of 2-1/2 L. She has been afebrile, heart rate in the 50s, respiratory rate 36, blood pressure 108/76 and pulse ox 89%. WBC 13.6, hemoglobin 9.1, platelet count 194. Sodium 136, potassium 3.0 and was replaced, chloride 106, CO2 21, BUN 49 creatinine 5.31. Blood sugars are running between 182 and this morning 194. Patient was still in the 200s and 300s. Levemir last evening was increased to 16 units. Patient remains on propofol and fentanyl drips. Lovenox was increased to 60 mg twice daily. 09/24: PEEP was increased today to 20, tidal volume is at 375 and FiO2 of 50%. Patient has been afebrile. She has been started on levo fed. Repeat chest x- ray reveals bilateral multifocal confluent opacities consistent with Covid 19 or ARDS redemonstrated. Nephrology will plan dialysis for tomorrow for 3 L. Patient remains on propofol fentanyl and Nimbex. WBC 12.5, hemoglobin 9.8, platelet count 161. D-dimer 13.3. Sodium 132, potassium 3.4, chloride 102, CO2 20, BUN 48 and creatinine 4.67. Blood sugars extremely elevated to 96-409. LDH 2217. 09/25: Patient remains in the intensive care unit on mechanical ventilation with tidal volume 375, FiO2 50 and PEEP of 20. Patient is afebrile, heart rate 61, respiratory rate 36, blood pressure 102/56, pulse ox 97%. Repeat blood work reveals WBC 9.3, hemoglobin 8.5 and platelet count 171. Sodium 130, potassium 3.7, chloride 100, CO2 20, BUN 61 creatinine 5.65. Blood sugars have been elevated up to 455. Levemir increased to 20 units twice daily, NovoLog 5 units every 6 hours and continue NovoLog scale. Patient is scheduled for hemodialysis today. Repeat chest x-ray reveals bilateral multifocal and confluent opacities. Decadron and Lovenox dosing change by pulmonary. Patient is off norepinephrine. 09/26: Patient remains in the intensive care unit on mechanical ventilation with tidal volume 375, FiO2 50 and PEEP of 15. She has been afebrile, heart rate 91, blood pressure 114/68, pulse ox 99%. cardiac monitor sinus rhythm. 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 Sodium 134, potassium 3.6, chloride 102, CO2 22, BUN 41 creatinine 4.21. Patient has improved blood sugars this morning running 150s and 160s. Diabetic medications were adjusted yesterday. Patient is awake and alert and interacting. Yesterday, patient had PICC line inserted by interventional radiology. Repeat chest x-ray reveals diffuse airspace infiltrates in both lung ann appear to progress slightly in the interval. 09/27: Patient remains in intensive care unit on mechanical ventilation with improvement of settings with tidal volume 375, FiO2 decreased to 40 and PEEP decreased to 10. Patient is on hemodialysis every other day and plan to remove 3 L today. Patient is more awake and alert. She is slow to respond but is able to follow simple commands. Blood sugars are running between 84 and 123. Repeat blood work reveals WBC 7.1, hemoglobin 8.1, platelets 152. Sodium 135, potassium 3.6, chloride 103, CO2 21, BUN 53 and creatinine 5.88. Repeat chest x-ray revealed cardiomegaly and pulmonary edema. Patient is on tube feedings:. Patient is not require vasopressors and is off sedation. Fecal management system remains in place for brown liquid stool. C. difficile was negative. 09/28: Patient remains on mechanical ventilation with tidal volume 375, FiO2 increased to 80 and PEEP increased to 18. Patient had a rough night was very anxious, no pain. Xanax 0.25 mg 3 times daily was added. There is concern for pulmonary embolism for which patient was started on heparin drip, she is unable to undergo CAT scan. Venous Doppler bilateral lower extremities was nondiagnostic due to extensive edema in obese patient but minimal imaging of the popliteal veins does show flow. Repeat echocardiogram has been ordered. Cefepime has also been ordered at 1 g IV piggyback every 24 hours as well as vancomycin, pharmacy dosing. Patient is back on fentanyl drip, propofol drip and norepinephrine. Blood sugars are elevated and insulin Levemir will be increased to 25 mg twice daily. Ferrlecit infusion has been ordered by nephrology for 4 days. Patient is undergoing hemodialysis today.temperature max 100.2, heart rate 134, respiratory rate 34, blood pressure 120/65, pulse ox 94%. cardiac monitor is sinus tachycardia. Repeat blood work reveals WBC 16.9, hemoglobin 9.7, platelet count 216. D-dimer 8.81. Sodium 134, potassium 3.8, chloride 99, CO2 25, BUN 43 and creatinine 5.36. Blood sugars in the 200s. AST 40. 09/29 Patient had declined more last 48 hours require more sedation, patient is doing hemodialysis, respiratory failure is quite bit worse this time. Patient was inquired the pain is well back on fentanyl drip. Her vent set up with PEEP is limited but higher. No new finding on culture and her chest x-ray continues shows diffuse infiltrate persistent although there is a moderate interval improvement. 09/30 patient's was seen and evaluated. PEEP was reduced to 11 as patient is maintaining good saturation at the current vent settings. 10/01 patient was seen at bedside. She is currently on assist control rate of 28 white tidal volume 350 FiO2 50% and PEEP of 10 which has been reduced by pulmonary as patient name cleaning her oxygen saturation. Arm blood gas was obtained with a pH of 7.35 pCO2 37 pO2 of 63. She remains hemodynamically stable with no need for pressors. Labs were reviewed patient's BUN is 29 creatinine 3.93 glucose 122 albumin 2.2 sodium 131 chloride 19 hemoglobin is downtrending with a Hb of 7.3 no leukocytosis 7.1. Patient's urine output is m inimal at this time. Her rate has increased to 129 and is currently on positive fluid balance even with dialysis. Last dialysis was done yesterday. Continue enteral feeding currently at goal. Antibiotic has been discontinued and continues to remain on DEXA methicillin 4 mg IV daily. 10/02 patient continues to be on trach support with mechanical ventilation. Patient was evaluated by cupola patcher and was switched to VC control as patient was noted to be double stacking on and off throughout the night. Respiratory rate continue to 28 tidal volume increased to 400 with a PEEP for Dr. Downey. Venkatesh gregorio is maintaining oxygen saturation 91% on the current setting. According to the nurse bedside patient saturation drops significantly or she is moved or her sedation is dropped. Patient is currently on propofol drip, fentanyl drip. She did underwent dialysis today and was able to maintain her low pressure without the need of pressors. Labs reviewed today suggest a WBC of 6.7 hemoglobin of 7 .0 and d-dimer 3.9 bicarb 17 BUN 38 creatinine 4.8. LDH is 964. Sodium 1:30 likely secondary to volume overload. Urine sodium and urine osmolality ordered. Patient's glucose this morning is 146. Continue to remain on enteral feeding. Urine output is reduced. Fall catheter will be placed today. Continue to remain on dialysis. 10/03: Patient remains on mechanical ventilation and is back on propofol and fentanyl drips. Patient is currently on VC control with tidal volume 400, FiO2 55 and PEEP of 12. Patient still is not making any urine and is dialysis dependent with next treatment planned for tomorrow with removal of 3-3-1/2 L. PEG tube feedings are at goal. Fecal management system remains in place. At the time of evaluation, patient is off levophed. Repeat chest x-ray reveals s table diffuse bilateral airspace disease correlate for ARDS, pulmonary edema or diffuse pneumonia. Temperature max last evening was 101. Temperature currently 99, heart rate 106, respiratory rate 32, blood pressure 101/50, pulse ox 86%. Repeat blood work reveals WBC 6, hemoglobin 7.4, platelet count 160. D-dimer 4.05. Sodium 133, potassium 3.5, chloride 100, CO2 23, BUN 31 creatinine 3.8. Blood sugars are running between 100 and 170. Ferritin 1514. Liver function test normal. LDH 1016, C-reactive protein 13.6. Prognosis remains guarded. 10/04: Patient remains intubated on mechanical ventilation with tidal volume 400, FiO2 65, PEEP of 14. Patient continues to run fevers and repeat blood culture and urine and urine culture ordered for today. Haley catheter has been removed this patient has no significant urine output at about 20 mL per shift. BladderScan is monitored for greater than 300 and the patient is straight cathed. Hemoglobin is 6.8 and she has been ordered 41 unit of packed RBCs today. She is currently on propofol and fentanyl drips. She is scheduled for hemodialysis today. WBC 4.5, hemoglobin 6.8, platelet count 151. D-dimer 3.28. Sodium 132, potassium 4.1, chloride 100, CO2 22, BUN 37 creatinine 4.74. Blood sugars running between 97 and 110. Ferritin 1801. LDH 859. C-reactive protein 14.4. Chest x-ray reveals correlate for pneumonia, edema, ARDS. Prognosis remains guarded. 3: Patient remains in intensive care unit currently on mechanical ventilation with tidal volume 400, FiO2 was increased to 100 and PEEP is at 14. She continues to run fevers which have worsened with temperature max 103.1. She has been tachycardic in the 130s, blood pressure is marginal but not on vasopressors. Pulse ox currently 92%. Repeat blood work reveals WBC 5.5, hemoglobin 7.6, platelet count 190. D-dimer 2.7, ferritin 1770, LDH 932, C- reactive protein 21.4. Blood sugars are running between 100 1669. Electrolytes are normal. BUN 27 and creatinine 3.79. Pancultures were done yesterday including a straight cath for urine culture, sputum culture and blood culture. Arterial line was removed as well as midline. She is currently on propofol, fentanyl and started on Nimbex today. 10/06: Patient remains in the intensive care unit. Today patient in prone position and remains on mechanical ventilation with tidal volume 350, FiO2 65 and PEEP of 14. Her last documented fever was yesterday at 2 PM. Heart rate is in the 120s, respiratory rate 32, pulse ox 88-92%. CBC is unremarkable. Electrolytes are normal. BUN 30 creatinine 2.93. Blood sugars are running between 135 and 164. Cultures from October 04: Blood culture no growth, sputum culture finalized, urine culture finalized. Catheter tip culture is in process. Repeat chest x-ray shows bilateral interstitial infiltrates. Patient is on tube feedings of Nepro at goal of 30 ML's per hour. Patient underwent dialysis yesterday and is scheduled for repeat dialysis today. 10/07: Patient maintains in the intensive care unit intubated and on mechanical ventilation. She is receiving hemodialysis this morning has been every day. Plan is to remove 2-1/2 L today. Vent settings have changed today with tidal volume 350, FiO2 was increased to 100% and PEEP remains at 14. She has been continued on Nimbex, fentanyl, norepinephrine and propofol. Plan is to prone position patient following dialysis. Repeat chest x-ray reveals worsening interstitial infiltrates. BUN is 26 and creatinine 2.59. LDH 955, C-reactive protein 22.1. Prognosis remains poor. 10/08: Patient remains in intensive care unit intubated and on mechanical ventilation with tidal volume 350, FiO2 60, PEEP of 14. She is pronating today. She is scheduled for hemodialysis on a daily basis. She has been afebrile, heart rate 112, respiratory rate 36, blood pressure 161/88, pulse ox 93%. Re peat blood work reveals WBC 9.9, hemoglobin 9.1, platelet count 320. Sodium 133, potassium 5.3, chloride 100, CO2 20, BUN 29 creatinine 2.44. Blood sugar running between 102 and 139. LDH 1026, C-reactive protein 19.7. 10/09: Patient is undergoing dialysis this morning. She continues to be intubated and on mechanical ventilation with tidal volume 350, 270 and PEEP of 14. Patient is also on propofol, Nimbex, norepinephrine and fentanyl drips. Repeat chest x-ray reveals persistent bilateral multifocal and confluent opacities consistent with Covid 19. She is afebrile, heart rate 116, respiratory rate 36, blood pressure 120/65, pulse ox 91%. Repeat blood work reveals WBC 5.4, hemoglobin 9.2, platelet count 216. D-dimer 2.67, ferritin 2568, LDH 794, C- reactive protein 13.9. Blood sugars have been running 90-104. Creatinine 1.64. She is on daily dialysis treatment. 10/10: She remains in the intensive care unit. She is now out of isolation as a repeat Covid test came back negative. She remains on mechanical ventilation with tidal volume 350, FiO2 70 and PEEP of 14. Patient is also on Nimbex, propofol, norepinephrine, fentanyl drips. She is on PEG tube feedings at goal and tolerating well. Repeat blood work reveals WBC 7.8, hemoglobin 7.5, platele t count 267. Sodium 139, potassium 3.9, chloride 109, CO2 20, BUN 20 creatinine 1.29. Blood sugars are running between 76 and 102. Scheduled NovoLog decreased to 3 units. Repeat chest x-ray reveals moderate cardiomegaly and continued pulmonary edema. Slight interval improvement. Patient is continued on daily hemodialysis. 10/11: Patient remains in intensive care unit on mechanical ventilation with tidal volume 325, FiO2 70, PEEP 14. She is currently being prone. She underwent hemodialysis this morning with removal of 4 L of fluid with plan to continue daily treatment. She is currently on Nimbex, fentanyl and propofol. No vasopressor at this time. Fecal management system remains in place. She is on tube feedings currently at hold due to prone positioning. Patient has been afebrile, heart rate 116, respiratory rate 36, blood pressure 100/58, pulse ox 93-96%. Repeat blood work reveals WBC 9.3, hemoglobin 8.1, platelet count 276. Sodium 136, potassium 4.3, chloride 103, CO2 20, BUN 20 creatinine 1.14. Blood sugars running between 133 and 202. 10/12: Patient remains in the intensive care unit. She is undergoing hemodialysis this morning. She's been afebrile, heart rate in the 120s, respiratory rate 32, blood pressure 102/65. She is not on vasopressors. She is continued on Nimbex, fentanyl and propofol. Vent settings are currently tidal volume 325, FiO2 70, PEEP 14. Total platelet count 273. Sodium 133, potassium 4.7, chloride 100, CO2 19, BUN 21 creatinine 0.91. Blood sugars running between 121 and 143. 10/13: Patient remain in the ICU she is on hemodialysis daily, she is still on the vent with a PEEP of 14 and FiO2 of 70. Her oxygenation is marginal pulse rate still high. Patient had scratched cornea was seen in ophthalmology decided to keep doing eyedrops along with eye patch at this point. Prognosis still very bad this point. 10/14: She remains on mechanical ventilation with tidal volume 325, FiO2 70% and PEEP of 14. She did require label fed last evening for about 6 hours. She did not tolerate pronating yesterday. She is undergoing dialysis this morning with plan for removal of 4 L. Blood sugars have been low and IV fluids changed to D 10 until blood sugars have recovered. Levemir and scheduled NovoLog discontinued. Patient is on tube feedings at goal there's been no change in this. 10/15 patient remains on mechanical ventilation in the intensive care unit. FiO2 still at 70%, PEEP of 18. Blood sugars have improved since medications were adjusted. White blood cells 33.9, hemoglobin 8.5, sodium 135, BUN 19, creatinine 0.96. Patient to receive dialysis again today. Patient did run a low-grade fever throughout the night and pro calcitonin level is ordered. Chest x-ray showed continued diffuse bilateral airspace disease. Patient remains on tube feedings at goal. 10/16: Patient remains on mechanical ventilation with tidal volume 300, FiO2 70, PEEP of 15. Fecal management system is out. She is currently on low dose of norepinephrine. She is also on fentanyl drip, propofol drip, rocuronium drip. Heart rate is running in the 130s, sinus rhythm, blood pressure 121/63, pulse ox 95%. Patient is been afebrile. Repeat blood work reveals WBC 18.9, hemoglobin 7.5, platelet count 291. Sodium 135, potassium 4.2, chloride 101, CO2 19, BUN 25 and creatinine 1.36. Blood sugars are running between 143 and 199. Patient is on scale insulin only. Repeat chest x-ray reveals persistent bilateral multifocal and completed opacities consistent with Covid 19. 10/17: Patient remains on mechanical ventilation with tidal volume 300, FiO2 50, PEEP of 14. She is currently receiving hemodialysis. The patient is having yellow-colored drainage from the trach site. This is going to be culture today. Repeat blood work reveals WBC of 24, hemoglobin 7.3 and platelet count 310. Sodium 136, potassium 4.1, chloride 101, CO2 19, BUN 24 creatinine 1.43. Blood sugar 139. Capillary blood glucose running 147 and 189. Repeat chest x-ray is unchanged. Patient had increased respiratory rate 40s and 50s with oxygen saturation of 87 and now was increased and Seroquel added this morning. Prognosis remains guarded. 10/18: Patient remains on mechanical ventilation with tidal volume 300, FiO2 60, PEEP has been decreased to 12. Patient will need a PEEP of 8 in order to transfer to long-term care. She is currently on fentanyl drip and Precedex drip. Patient is tracking when her name is stated. She seems to be slightly i mproved today. Patient has been afebrile, heart rate 106, respiratory rate 32, blood pressure 110/61, pulse ox 98%. Repeat blood work reveals WBC 30.3, hemoglobin 7.2, platelet count 350. Sodium 139, potassium 4.2, chloride 103, CO2 20, BUN 23 creatinine 1.79. Blood sugars are increasing running up 299. Patient will be placed on Levemir. Secretions from tracheotomy sent for culture and in process. She is currently undergoing hemodialysis. 10/23: Patient remains in the intensive care unit on mechanical ventilation with tidal volume 300, FiO2 65 and PEEP of 10. cardiac monitor has been in a sinus rhythm. Patient does open her eyes and appears to be tracking. Blood sugars have been elevated. Levemir will be increased to 40 units daily and scheduled NovoLog increased to 12 units and continue NovoLog every 6 hours per scale. Patient is receiving hemodialysis today. She is not currently on vasopressors. Patient is on Precedex drip only. Antibiotics in the form of cefepime were started on October 18. Patient has been afebrile, heart rate 126, respiratory rate 36, blood pressure 163/105. Pulse ox 91%. Repeat blood work reveals WBC 16.0, hemoglobin 7.2, platelet count 208. Electrolytes are within normal limits. BUN 62 and creatinine 2.43. Blood sugars running between 259-321. Most recent blood culture from October 22 is no growth at 24 hours. Repeat chest x-ray reveals cardiomegaly and persistent bilateral pulmonary edema. 10/24: Patient is awake, eyes are open and tracking, she is able to follow simple commands. Severe generalized weakness noted. Precedex gtt has been discontinued. Patient is receiving hemodialysis. Her blood sugars have remained elevated for which Levemir increased to 25 units twice daily along with 15 units of NovoLog every 6 hours along with scale. Tidal volume 330, FiO2 60, PEEP of 8. video arcade manager and social service assistant following closely. Anticipate possible discharge by the end of next week to long-term care facility. 10/25: Patient remains in the intensive care unit on mechanical ventilation. Tidal volume 350, FiO2 60, PEEP 8. She is receiving hemodialysis this morning. Her heart rate remains elevated in the 130s. Pulmonary as started her on Cardizem at 60 mg 3 times daily which has not had any improved effect. We'll start the patient on Lopressor 25 mg twice daily. Patient has been afebrile, heart rate respiratory rate 32, blood pressure 151/91, pulse ox 98%. Patient is been transfuse 1 unit of packed RBCs today. Patient's mental status is improving and patient is able to follow simple commands. WBC 12.2, hemoglobin 6.3, platelet count 196. Sodium 135 otherwise looked lites are normal, BUN 48 creatinine 1.99. Blood sugars are running between 120 and 172. Levemir has been increased to 30 mg twice daily continue 15 units of NovoLog every 6 hours with scale. 10/26: Patient remains in intensive care unit, on mechanical ventilation with tidal volume 375, FiO2 50, PEEP of 8. Patient's heart rate remains elevated 120s and Lopressor increased to 50 mg twice daily. Patient seems to be quite anxious and depressed. We will decrease Seroquel to 50 mg twice daily and start patient on Lexapro. Patient received her first dose of Xanax this morning but this did not seem to help heart rate either. She has been afebrile, heart rate 128, blood pressure 149/79, pulse ox 93%. Repeat hemoglobin 7.3. Sodium 135, potassium 3.9, chloride 90, CO2 30, BUN 45 and creatinine 1.94. Blood sugar are improved running between 117-194. We will make further adjustments to insulin and to increase long-acting to 35 units twice daily and decrease NovoLog scheduled to 7 units and continue NovoLog scale. There are problems with patient's trach and consequently placed with [facility]. General surgery to reevaluate trach. 10/27: Patient is complaining of nausea today. Concerned that this is related to Lexapro. We will further decrease Seroquel to 50 mg at bedtime. Patient is being bladder scanned and last bladder scan wasn't 125 mL. She does not have Haley catheter. No fecal management system. She is having a bowel movement about 3 per day. Plan is for CPAP trial today. She is currently on mechanical ventilation with tidal volume 375, FiO2 50 and PEEP of 8. She has been afebrile, heart rate 105 which is much improved from the last few days. Blood pressure 145/88, pulse ox 94%. There is a new consult in place for Dr. Clemente regarding exchanging the trach and possible debridement at site. WBC 11.4, hemoglobin 8.2, blood count 218. Sodium 136, potassium 4.1, chloride 97, CO2 31, BUN 47 creatinine 1.97. Blood sugars running between 129 and 204. We have changed long acting insulin to 35 units twice daily and continue NovoLog 7 units every 6 hours and scale every 6 hours. Nephrology may be decreasing frequency of dialysis treatments. Anticipate probable discharge to long-term care next week. 10/28: Patient was complaining of nausea today which has resolved. CPAP trial wi ll continue today. She is currently on mechanical ventilation with a tidal volume 375, FiO2 of 50, PEEP of 8. She is afebrile, heart rate 108 which continues to show improvement. Blood pressure 133/87, pulse ox 99%. Patient is able to follow commands. And answers appropriately with nodding her head. WBC 10.5, hemoglobin 8.0, potassium 4.6, BUN 46, creatinine 1.96. Patient is currently receiving hemodialysis. 10/29: Patient was found sitting up in bed. Able to answer some questions approp riately. Utilizing kim. Able to follow commands. Ann over elevated blood sugars. Levemir 35 units twice a day will continue at this with a 7 unit coverage. Patient remains afebrile. Heart rate 102, respirations 29, blood pressure 124/74, pulse ox 97% on mechanical ventilation. Mechanical ventilation settings with a tidal volume 375, FiO2 of 50 and a PEEP of 8. Family has been into see patient. Hemodialysis will be held today. 10/30: Patient remains in the ICU on mechanical ventilation. She is not requiring pressure support. She is on CPAP support. She is receiving hemodialysis this morning with plan to start a Friday schedule this week. Blood sugars are stable and running between 140 and 184. She is on tube feedings at goal and having bowel movements every 12 hours. Repeat blood work reveals WBC 8.9, hemoglobin 10.2, platelet count 258. Sodium 133, potassium 5.0, chloride 97, CO2 23, BUN 69 creatinine 2.67. 10/31: Patient is seen today in intensive care unit. She remains on mechanical ventilation with tidal volume 375, FiO2 45 of PEEP of 5. Patient is found sitting in a chair working with physical therapy. Patient is noted to have left arm weakness without pain and good sensation. She is not receiving dialysis today and will be started on Friday regime. Patient's heart rate is better controlled in the 80s, blood pressure 113/65, pulse ox 99%. Patient is been afebrile. Patient has been on cefepime. Repeat blood work reveals WBC 9.3, hemoglobin 6.9 and patient is transfused 1 unit of packed RBCs today. Platelet count 248. Electrolytes are within normal range, BUN 38 and creatinine 2.04. Her blood glucose running between 130 and 193. AST 38. Social work is working with the daughter regarding discharge planning. 11/01: A she was undergoing dialysis with plan for 3 L removed today and dialysis is scheduled Friday. She is in bed and appears to be comfortable. She is able to talk and express herself and is cognitively intact. She remains on mechanical ventilation. She has been afebrile, heart rate 107, blood pressure 115/85, pulse ox 99%. Repeat blood work reveals WBC 8.5, hemoglo bin 7.5, platelet count 278. Sodium 136, potassium 4.8, chloride 100, CO2 27, BUN 55 creatinine 2.81. Blood sugar running between 114 and 185. Calcium 10.3, total bilirubin 0.2, AST 34, ALT 34, alkaline phosphatase 144. Social work is working on discharge planning which will be to [facility], [facility] or [facility]. 11/02: Patient remains in the intensive care unit on mechanical ventilation with tidal volume 375, FiO2 40, PEEP of 5. Patient's mental status continues to be improved. She has been afebrile, heart rate 97, blood pressure 144/86, pulse ox 98%. Repeat blood work reveals WBC 8.3, hemoglobin 7.2, platelet count 255. Sodium 135, potassium 4.5, chloride 98, CO2 20, BUN 42 and creatinine 2.36. Blood sugars are running between 124 278. She is scheduled for hemodialysis tomorrow with plan for 4 L to be removed. Social work is working on discharge plan and once patient has been accepted and insurance authorization is obtained if needed, patient will be discharged. 11/03: Patient remains in intensive care unit on mechanical ventilation patient is currently on pressure support of 15, CPAP of 5 and FiO2 of 40%. A trach collar is to be attempted today in order to get the patient discharged to drug safety data management specialist care facility. Land is for medical [facility] [place] [facility] on Friday if patient continues to improve. He has been afebrile, heart rate in the 80s, blood pressure 90/57, pulse ox 100%. Repeat blood work reveals WBC 7.5, hemoglobin 6.9, platelet count 255. Sodium 133, potassium 5.1, chloride 97, CO2 27, BUN 59 creatinine 3. Blood sugars up and running 117 164. 11/04 patient remains in ICU, this is day number 55, pulmonary is following closely, they have recommended fenestrated trach, for which Dr. warren is going to perform, patient is anticipated to be discharged to long-term care facility, most likely early next week. She is stable, with no new fevers, antibiotics has been completed, blood sugars are stable, hemoglobin 7.7, WBC 8.5, blood sugars running between 145-150, creatinine of 2.34 11/05: Patient remains in ICU, trach collar replaced by Dr. Zhang this a.m., patient's communicating with handwritten communication mentions that she has back pain, on IV Dilaudid still, we'll replace [place] 7.5, also cannot sleep, muscle relaxants started with cyclobenzaprine, where finalizing discharge planning, to subacute rehab long-term care no fever no chills, coughing a lot, with mucus production, suctioning on the trach when necessary by nursing staff, 11/06: Patient is still having refractory sleep, wakes up with chills and sweats, also. Alternating hot and cold, iron is suspected to be low, hemoglobin of 7.2, check for iron studies, on Ativan and aspirin, start melatonin 6 mg at bedtime, might need Zestril, however is on Seroquel. We'll going to increase Seroquel to 75 mg blood sugars are stable, no change in program today, pain control is better, using [place] 7.5. 11/07: Patient remains in the intensive care unit on trach collar at FiO2 of 35%, flow rate of 8. Patient states that she slept better last evening. We will add in consult for speech therapy to evaluate if patient can start on oral food. She is currently on tube feedings at goal. Repeat blood work reveals WBC 7.9, hemoglobin 8.0, platelet count 238. Sodium 130, potassium 3.9, chloride 93, CO2 28, BUN 48 creatinine 2.84. Capillary blood glucose running between 75 and 129. Iron 22, TIBC 244, iron saturation 9.0 to. Total bilirubin 0.1, AST is 26, ALT 27, alkaline phosphatase 115. TSH 1.7. 11/08: Social work is trying to determine discharge plan. Currently looking at inpatient rehab facilities. Patient has been seen by speech therapy and approved for oral intake and she is having her first meal today. She is undergoing hemodialysis today. She's been afebrile, heart rate 88, blood pressure 155/96, pulse ox 94% on trach collar 35% FiO2. Blood sugars are running in the 70s and 80s. Patient is working with therapies. 11/09: Patient is off tube feedings completely and taking all oral nutrition. Dr. See stopped the scheduled Levemir is now blood sugars are on the low side. Patient states she is sleeping well. Seroquel has been completely discontinued. She has been afebrile, heart rate 96, blood pressure 124/78, pulse ox 96% on trach earlier at 35 FiO2. Repeat blood work reveals sodium 138, potassium 3.8, chloride 106, CO2 26, BUN 25 and creatinine 2.26. Blood sugars running between 48 and 125. cold storage worker is trying to make placement for the patient for rehab. 11/10: Patient has been resumed on tube feedings due to low oral intake. She is receiving dialysis this morning and is nauseated and does not feel well. [facility] Midline has been ordered and PICC line discontinued. A consult has been placed with Dr. Walker for evaluation of inpatient rehab. Noted he has documented limited endurance and would not be able to participate in the full inpatient rehab program. Patient has been afebrile, heart rate 95, blood pressure 154/82. Pulse ox 88% on trach collar. Repeat blood work reveals sodium 134, potassium 4.2, chloride 103, CO2 22, BUN 13 creatinine 2.94. Blood sugars are running between 101 125. 11/11: Patient is sitting up in bed in no acute distress. Exercise has been given for patient to be transition to full inpatient rehab program. Patient remains afebrile, heart rate 116, blood pressure 160/109, respirations 22, pulse ox is 90% with movement on a trach collar. FiO2 60. Patient able to answer questions appropriately. Tolerating diet. Hydralazine ordered for elevated blood pressure. 11/12: Sitting in bed in no acute distress. She is experiencing some episodes of constipation. And difficulty sleeping at night. He remained afebrile, blood pressure 151/91 heart rate 112, pulse oximetry 92% on trach collar. Patient continues with a exercise program to support transition to a full inpatient rehab program. 11/13: Patient remains in intensive care unit. She appears to be comfortable and in no acute distress. Patient has a trach collar in place at 40% FiO2. There has been intermittent The trach done. Patient is taking oral diet as well as feedings per PEG tube is her oral diet is not enough to sustain her. She continues to have significant weakness and requires rehab. Social work is following closely and trying to find inpatient rehab facility for her. Patient's been afebrile, heart rate 98, blood pressure 166/108, pulse ox 99%. Hydralazine will be increased to 100 mg 3 times daily. Repeat blood work reveals WBC 11.4, hemoglobin 8.6, platelet count 246. Sodium 133, potassium 3.5, chloride 96, CO2 26, BUN 36 creatinine 3.17. Blood sugars running 113 260. 11/14: Patient remains in the intensive care unit. Fortunately, this morning Dr. Dykes has to cannulated today and patient is now on O2 at 3 L nasal cannula. She has a gauze dressing over the tracheostomy site. Patient is seen today sitting up in a chair in intensive care unit. Hemoglobin is 8.6, electrolytes are normal, BUN 36 and creatinine 3.17. Patient is continued on hemodialysis Friday. Patient continues to work with physical therapy and occupational therapy. Social work is working on discharge planning to subacute or long-term care facility for rehab. 11/15: Patient is seen today on the [facility] floor. She is found sitting in a chair at the bedside and appears to be comfortable. She apparently had concerns for rash on the back and back of her thighs last evening and Benadryl was ordered. I was evaluating appears to be dry skin and Lac-Hydrin will be added instead. Patient has been afebrile, heart rate 111, blood pressure 150/62, pulse ox 97% on 4 L nasal cannula. Social work is working on subacute rehab at [facility] P blood work reveals WBC 11.0, hemoglobin 7.7, platelet count 237. Sodium 129, potassium 3.6, chloride 92, CO2 31, BUN 33 creatinine 2.74. Blood sugars running between 105 195. Discussed this with patient and she does not want to go there but her discharge options are very limited. cold storage worker is also looking at acute/subacute rehab at [facility]. Patient does require insurance authorization prior to discharge. Anticipate everything will be in order for discharge by Friday. 11/16: Pulse ox is morning running between 85 and 87% and oxygen was increased to 5 L with pulse ox in the low 90s. Patient is having a cough for which chest x- ray will be ordered as well as Mucinex added. Patient has been afebrile, heart rate 113, blood pressure 125/79, pulse ox 90% on 5 L nasal cannula. Blood sugars are running between 148 and 197. Social work is now looking at discharge planning to [facility] which patient has been accepted and we're waiting for insurance authorization. REVIEW OF SYSTEMS Constitutional: No fever, no chills, no night sweats. No weight change. Profound weakness, + significant fatigue no lethargy. Reported daytime sleepiness. EENT: No headache. No loss of vision. No loss of Hearing. No nasal drainage or congestion. No epistaxis. No sore throat. Lungs: No shortness of breath, cough, no sputum production. No wheezing. Cardiovascular: No chest pain, no lower extremity edema. No palpitations. No paroxysmal nocturnal dyspnea. No orthopnea. No lightheadedness or dizziness. No syncopal episodes. Abdominal: No abdominal pain. Denies nausea, vomiting. No diarrhea. No constipation. No bloody or tarry stools. No loss of appetite. Genitourinary: No dysuria, increased frequency, urgency. No urinary retention. Minimal urine production Musculoskeletal: No myalgias. Noted significant muscle weakness, noted gait dysfunction, no frequent falls. No back pain. No neck pain. Integumentary: Positive wound-decubitus ulcer, trach wound. No rash or pruritus. No unusual bruising. No change in hair or nails. Neurologic: No aphasia. No facial droop. Noted change in mentation-back to baseline. No head injury. No headache. No paralysis. No paresthesia. Psychiatric: suspected depression. positive anxiety. Endocrine: Noted abnormal blood sugars-stable and monitored. PHYSICAL EXAMINATION Gen: This is is a 35-year-old black female, sitting in a recliner in her room. Patient appears to be in no acute distress HEENT: Head is atraumatic, normocephalic. Pupils equal, round. Sclerae is anicteric. Patient is on nasal cannula oxygen, small dressing over tracheostomy site. NECK: Supple. No JVD. No lymphadenopathy. No thyromegaly. LUNGS: Lung sounds are clear to auscultation. No intercostal retractions. HEART: Regular rate and rhythm. No murmur. cardiac monitor sinus tachycardia. ABDOMEN: Soft. Bowel sounds are present. No masses. No tenderness. EXTREMITIES: Trace bilateral pedal edema. No calf tenderness. NEUROLOGICAL: Patient is awake, alert, oriented x3 and able to follow commands, significant weakness. ASSESSMENT AND PLAN 1. Acute hypoxic respiratory failure secondary to Covid 19 pneumonia and possible bacterial pneumonia. Patient was intubated on September 11. She is status post 1 dose of Remdesivir and 1 dose of Tocilizumab. Continue Ventolin inhaler 4 times daily, Lovenox 30 mg subcu daily, supplements. Status post PEG tube and trach. Completed antibiotics. 2. Acute diabetic ketoacidosis secondary to Covid 19 pneumonia, uncontrolled with hyperglycemia. Levemir discontinued, continue scheduled NovoLog 7 units every 6 hours and continue NovoLog scale every 6 hours. 3. Metabolic encephalopathy secondary to Covid 19 and DKA. 4. Sepsis and septic shock secondary to Covid 19 pneumonia with multiorgan failure. Continue as in #1. 5. Acute metabolic acidosis secondary to acute DKA, Covid 19 and acute kidney injury. Renvela 1600 mg q6h. 6. Diabetes mellitus type 2 uncontrolled with A1c 13.6. Continue as above. 7. Hypophosphatemia status post replacement. 8. Hyperkalemia secondary to DKA, resolved. 9. Sinus tachycardia secondary to sepsis, volume deficiency. Patient is on Cardizem 60 mg 3 times daily, and Lopressor 50 mg twice daily. 10. Acute kidney injury secondary to ATN secondary to Covid 19 and DKA. Continue hemodialysis on Friday. 11. Citrobacter pneumonia versus MRSA pneumonia. Completed course of antibio tics. 12. Hypertension. 13. Morbid obesity with BMI of 53. 14. Situational depression and anxiety. Seroquel discontinued, continue Lexapro 10 mg daily and Xanax 0.25 mg twice daily as needed. 15. DVT prophylaxis. Lovenox. 16. GI prophylaxis. Protonix 40 mg IV push daily. 17. Stage IV pressure ulcer to trach site. Currently utilizing absorptive silver dressing. 18. Stage II decubitus ulcer to coccyx. 19. Critical illness polyneuropathy and myopathy. Continue physical therapy. 20. Anemia of chronic disease. Transfuse total of 3 units of packed RBCs, continue Aranesp 40 g every 7 days. CODE STATUS: Full code DISCHARGE PLAN [facility] on Friday once insurance authorization has been obtained Impression and plan of care have been directed as dictated by the signing physician. Kimberly Boswell nurse practitioner acting as scribe for signing physician. Objective - Vital Signs Vital signs: Vital Signs Temp 98.7 F 11/16/20 08:26 Pulse 113 H 11/16/20 08:26 Resp 17 11/16/20 08:26 BP 125/79 11/16/20 08:26 Pulse Ox 90 L 11/16/20 08:26 Intake & Output 11/15/20 11/16/20 11/16/20 18:59 06:59 18:59 Intake Total 300 740 Output Total 2800 Balance -2500 740 Intake: Oral 740 Hemodialysis 300 Output: Hemodialysis 2800 Other: Voiding Method Bedside Commode Bedside Commode Bedpan Bedpan # Voids 1 # Bowel Movements 1 ABP, PAP, CO, CI - Last Documented Arterial Blood Pressure 136/76 - Labs CBC & Chem 7: 11/15/20 03:07 11/15/20 03:07 Labs: Abnormal Lab Results - Last 24 Hours (Table) 11/15/20 11/15/20 11/15/20 Range/Units 11:28 16:19 20:55 POC Glucose (mg/dL) 136 H 158 H 151 H (75-99) mg/dL 11/16/20 Range/Units 06:56 POC Glucose (mg/dL) 197 H (75-99) mg/dL
[2020-11-16] MEDS: ONDANSETRON 4 MG/2 ML VIAL IVP PRN (12:45)
--- NOTE | 2020-11-16 14:50 | P.PN ---
Subjective Progress Note Date: 11/16/20 CHIEF COMPLAINT: COVID-19 pneumonia HISTORY OF PRESENT ILLNESS: Patient has been transferred to regular medical floor. She is status post tracheostomy and PEG tube placement with Dr. Zhang. Patient is status post decannulation by Dr. Mcfarland. Patient is tolerating her tube feeds. She is eating a small amount of food. She is currently having hemodialysis. She has been making small amount of urine. She sitting up in bed. She reports having small bowel movements. Afebrile. PHYSICAL EXAM: VITAL SIGNS: Reviewed. GENERAL: Well-developed in no acute distress. HEENT: No sclera icterus. Extraocular movements grossly intact. Moist buccal mucosa. Head is atraumatic, normocephalic. ABDOMEN: Soft. Nondistended. Nontender. PEG tube site clean dry and intact NEUROLOGIC: Awake and opens eyes ASSESSMENT: 1. Acute hypoxic respiratory failure with prolonged mechanical ventilation due to COVID-19 pneumonia status post tracheostomy placement. Now status post decannulation 2. Severe protein calorie malnutrition status post PEG tube placement 3. Pressure wound at tracheostomy site PLAN: -We'll have nursing staff remove sutures from tracheostomy site -Continue supportive care -Patient is stable for discharge from surgical standpoint -Continue to work with physical therapy -Encouraged oral intake -Social work continuing to work on discharge planning Physician Resident Services Director note has been reviewed by physician. Signing provider agrees with the documented findings, assessment, and plan of care. Objective - Vital Signs Vital signs: Vital Signs Temp 98.2 F 11/16/20 13:02 Pulse 90 11/16/20 13:02 Resp 18 11/16/20 13:02 BP 116/70 11/16/20 13:02 Pulse Ox 96 11/16/20 13:02 Intake & Output 11/15/20 11/16/20 11/16/20 18:59 06:59 18:59 Intake Total 300 740 Output Total 2800 1100 Balance -2500 -360 Intake: Oral 740 Hemodialysis 300 Output: Stool 1100 Hemodialysis 2800 Other: Voiding Method Bedside Commode Bedside Commode Bedside Commode Bedpan Bedpan Bedpan # Voids 1 # Bowel Movements 1 ABP, PAP, CO, CI - Last Documented Arterial Blood Pressure 136/76 - Labs CBC & Chem 7: 11/15/20 03:07 11/15/20 03:07 Labs: Abnormal Lab Results - Last 24 Hours (Table) 11/15/20 11/15/20 11/16/20 Range/Units 16:19 20:55 06:56 POC Glucose (mg/dL) 158 H 151 H 197 H (75-99) mg/dL 11/16/20 Range/Units 11:18 POC Glucose (mg/dL) 148 H (75-99) mg/dL
[2020-11-16 16:35] LABS: Glucose,Whole Blood 133 mg/dL (75-99)
[2020-11-16] MEDS: diphenhydrAMINE 25 MG CAP PO PRN (17:59)
[2020-11-16] MEDS: ALPRAZolam 0.25 MG TAB PO PRN (20:18)
[2020-11-16 20:21] LABS: Glucose,Whole Blood 189 mg/dL (75-99)
[2020-11-17] MEDS: SEVELAMER 800 MG TAB PO SCH ×2 (02:23→05:48)
[2020-11-17 02:33] VITALS: BP 137/85; PULSE 105; RESP 20; TEMP 97.6
[2020-11-17 06:53] LABS: Glucose,Whole Blood 214 mg/dL (75-99)
[2020-11-17] MEDS: INSULIN ASPART (NovoLOG) 100 UNIT/ML VIAL SQ SCH ×2 (07:24)
[2020-11-17] MEDS: HYDROcodone/APAP 7.5-325MG 1 EACH TAB PO PRN (07:25)
[2020-11-17] MEDS: PANTOPRAZOLE 40 MG TABLET PO SCH (07:25)
[2020-11-17] MEDS: LACTULOSE 20 GM/30 ML CUP PO SCH (08:12)
[2020-11-17] MEDS: guaiFENesin 600 MG TABLET.ER PO SCH (08:12)
[2020-11-17] MEDS: SENNOSIDES 8.6 MG TAB PO SCH (08:12)
[2020-11-17] MEDS: hydrALAZINE HCL 50 MG TAB PO SCH (08:12)
[2020-11-17] MEDS: ENOXAPARIN 30 MG/0.3 ML SYRINGE SQ SCH (08:13)
[2020-11-17] MEDS: ASCORBIC ACID 500 MG TAB PO SCH (08:13)
[2020-11-17] MEDS: METOPROLOL TARTRATE 50 MG TAB PO SCH (08:13)
[2020-11-17] MEDS: AMMONIUM LACTATE 12% LOTION 225 GM BTL TOPICAL SCH (08:14)
[2020-11-17] MEDS: HYDROPHILIC CREAM 180 GM TUBE TOPICAL SCH (08:15)
[2020-11-17] MEDS: DILTIAZEM ORAL 60 MG TAB PO SCH (08:15)
[2020-11-17] MEDS: NYSTATIN 100,000 UNIT/GM POWD 15 GM TOPICAL SCH (08:15)
[2020-11-17 09:28] LABS: HCT 25.8 % (37.2-46.3); HGB 7.5 g/dL (12.0-15.0); MCH 26.8 pg (27.0-32.0); MCHC 29.1 g/dL (32.0-37.0); MCV 92.1 fL (80.0-97.0); Mean Platelet Volume 10.8 fL (9.5-12.2); Platelet Count 243 X 10*3/uL (140-440); RDW 16.7 % (11.5-14.5); WBC 14.81 X 10*3/uL (4.50-10.00)
[2020-11-17 10:02] LABS: African American GFR (CKD) 29.1 (60.0-200.0); Albumin 3.1 g/dL (3.80-4.90); Albumin/Globulin Ratio 1.29 (1.60-3.17); Anion Gap 11.5 mmol/L (4.00-12.00); BUN/Creat Ratio 12.08 Ratio (12.00-20.00); Carbon Dioxide 30.5 mmol/L (21.6-31.8); Globulin 2.4 g/dL (1.6-3.3); Non-African American GFR(CKD) 25.1 (60.0-200.0); Potassium 3.4 mmol/L (3.5-5.5); Total Bilirubin 0.1 mg/dL (0.2-1.2); Total Protein 5.5 g/dL (6.2-8.2)
--- NOTE | 2020-11-17 10:06 | P.DS ---
Providers Date of admission: 09/10/20 15:27 Expected date of discharge: 11/17/20 Attending physician: Alma Echevarria MD Consults: 09/10/20 15:38 Consult Physician Urgent Consulting Provider: Beatriz See Consult Reason/Comments: COVID pneumonia Do you want consulting provider notified?: Yes 09/12/20 16:30 Consult Physician Routine Consulting Provider: Franck Ortiz Consult Reason/Comments: decreased urine Do you want consulting provider notified?: Yes 09/18/20 08:58 Consult Physician Routine Consulting Provider: Collins Zhang Consult Reason/Comments: trach and peg Do you want consulting provider notified?: Yes 10/12/20 11:08 Consult Physician Routine Consulting Provider: Amanda Lowry Consult Reason/Comments: left eye Do you want consulting provider notified?: Yes 10/27/20 09:21 Consult Physician Urgent Consulting Provider: Jorge Clemente Consult Reason/Comments: trach site evaluation Do you want consulting provider notified?: Yes 11/10/20 12:53 Consult Physician Routine Consulting Provider: Tyree Walker Consult Reason/Comments: possible IPR Do you want consulting provider notified?: Yes Primary care physician: Rayo Arroyo [facility] Course: 35-year-old female patient of Dr. Arroyo with past medical history of type 2 diabetes comes in with acute shortness of breath associated with high light sugars. Patient on admission was found to have a fever of 101.5 pulse rate 125 respiratory rate 20. Blood pressure 132/106. On chest x-ray obtained in the ER suggestive of bilateral infiltrates concerning for call with pneumonia. COVID PCR was positive. On admissions patient had an ABG with a pH of 7.14 pCO2 of 20, pO2 of 59, bicarb of 7. Patient's blood sugar on admission was 424 on assessment today patient's blood work patient had a sodium 135 potassium 5.4 chloride 123 bicarb less than 5 and creatinine 0.73. D-dimer was elevated on admission patient 9 28 patient given 1 L of IV fluids followed by normal saline running at 200 mL/h. Patient was positive for acetone on admission. She will anion gap closed and was switched to D5NS. Insulin drip was continued during the night and was switched to patient's home medication this morning. One dose of remdesiver was ordered. Apparently around noon, A- team was called on the patient secondary to hypoxia patient's oxygen saturation dropped to the 70s and 80s on 100% nonrebreather. Patient was switched to BiPAP on 18/12 and is doing better o FiO2 of 80%. ABG was obtained and ph was 7. 14 pCO2 of 28 bicarb of 7 pO2 of 17. Patient noted to have uncompensated metabolic acidosis with compensated respiratory alkalosis. Stat dose of 1 amp bicarb was given and followed by sodium bicarbonate drip. Insulin drip restarted. Patient's initiated on dexamethasone 6 mg IV twice a day. Potassium phosphate ordered as phosphorus is low. Patient's repeat blood gases suggest a pH of 7.25, CO2 32 pO2 of 72 bicarb 14. I will not normal saline at 100 mL/h as patient's anion gap has increased. Patient given 1 dose of 2 mg of morphine with improvement in respiratory rate. One dose of Ativan 0.5 mg was given. Xanax 0.25 twice a day along with Ativan 0.5 IV every 6 hours ordered for the patient. Vitals were evaluated patient pulse 129 [id number]. She was moved to the ICU. Precedex drip was initiated. Lopressor was initiated at 25 twice a day. Metoprolol tartrate 5 mg IV every 6 hours. Systolic blood pressure more than 160. Started chest x-ray was obtained and suggest stable bilateral consolidation suggestive of COVID-19 pneumonia. 09/12 patient is seen in the ICU is currently mechanically ventilated and sedated on vent settings of respiratory rate 36, tidal volume 375 FiO2 80% PEEP of 18.. Vital signs reviewed patient had a temp of 100.4 pulse 150 respiratory rate 36 oxygen saturation 95% on 80% on fio2 .'s labs are reviewed which patient had a d-dimer 1.84 that is increased to 14.3. Arterial Blood gas suggest ph 7.35, CO2 40, po2 62, . Her BMP suggest a sodium 135 potassium 3.7 chloride 112 bicarb 21 creatinine 1.57 for calcitonin is 3.5 CRP is increased from 8.78.2 LDH is increased to 2614. Patient remains on Pneumovax, propofol drip. Lovenox increased to 50 subcu twice a day. Patient received 2 L of IV fluids. Continue IV fluids at 100 mL/h. Bicarb drip discontinued patient initiated on Zosyn 3.375 every 8 hours. Continue insulin drip at 4 units per hour. Patient is currently in prone positioning 09/13: Patient evaluated in the ICU remains on Ventilation continues to be sedated, in prone position. Vent settings are respiratory rate 36, tidal vital 375, FiO2 70% PEEP of 18. ABG shows pO2 of 82, PCO2 of 39, pH is 7.19. Latest labs show WBC 11.1, hemoglobin 13.2, d-dimer still pending, but yesterday was up to 14.3. Creatinine up to 3.4, BUN 24 sodium 137, potassium 4.0. Patient's urine output has been low, nephrology on consult. Bicarb drip increased to 100 miles an hour, receiving another liter of normal saline, she did have a ultrasound that showed unremarkable bilateral kidneys. Repeat chest x-ray showed bilateral lung infiltrates that are stable. Anion gap has closed, will start Lantus 10 units at at bedtime Novolog every 6 hours. 09/14: Patient is seen in the ICU, still currently mechanically ventilated and sedated. She continues in the prone position. Her oxygen quickly drops if she is not in prone. Patient's kidney function has worsened. Laboratory values show creatinine of 4.87, BUN 33, LDH 2191, C-reactive protein 2.7. ABG shows pH 7.32, pO2 of 60, pCO2 43. Patient is making almost no urine overnight. Nephrology is following patient continues on cefepime for urinary tract infection, culture is still pending. Vascular has been consulted for placement of temporary hemodialysis catheter for plans for dialysis. 09/15: Patient evaluated in the ICU, continues to be mechanically ventilated and sedated on assist control ventilation rate of 36, tidal volume 375, FiO2 100% and PEEP of 18. ABG today shows pO2 58, pCO2 of 45, and pH 7.35. She continues on tube feedings. Yesterday patient underwent ultrasound-guided right internal jugular non-tunneled hemodialysis catheter placement. Patient underwent hemodialysis treatment last night and plans have another hemodialysis treatment today. She continues to make almost no urine. She continues on cefepime for antibiotic coverage, and continues on Decadron and Lovenox. 09/16: Patient seen on follow-up remains in the ICU mechanically ventilated and sedated. She continues on assist control rate of 36, tidal volume 375, FiO2 100% and PEEP of 20. PEEP had to be increased due to patient had to be in supine position for dialysis, will go back to prone position once dialysis is complete. ABG shows pH 7.32, pCO2 49, PaO2 61. Laboratory values showed WBC 11.2, hemoglobin 11, sodium 134, creatinine 4.44, BUN 38. Urine culture shows no growth, blood cultures show no growth to date. Repeat chest x-ray shows bilateral pleural effusions, correlate for ARDS, pulmonary edema, diffuse pneumonia, findings are stable from last exam. Patient does not require any pressors, blood pressure 133/57, heart rate 78. 09/17: Patient was evaluated in the ICU today for follow-up. She continues to be intubated and on mechanical ventilation. Current vent settings are tidal volume 375, FiO2 100% and PEEP of 20. ABG shows pH 7.37, pCO2 40, pO2 102. She continues with intermittent prone positioning. Patient continues to have almost no urine output, maintained on dialysis. Patient received dialysis yesterday without complication. Laboratory values revealed WBC 10.3, hemoglobin 10.4, sodium 132, potassium 3.1, BUN 33, creatinine 4.29, LDH 1913, C-reactive protein 1.3. Urine and sputum cultures are negative, blood cultures show no growth to date. Consult placed to dietary to start TPN[ ] 09/18: She remains in the intensive care unit intubated and on mechanical ventilation with tidal volume 375, FiO2 60 and PEEP of 20. Patient is being prone to daily at approximately 16 hours per day. Pulmonary medicine has added in Dr. Zhang to do PEG tube and trach today. Patient is not on vasopressors. Repeat blood work reveals WBC 12.6, hemoglobin 9.8, platelet count 212. Sodium 133, potassium 3.2, chloride 102, CO2 21, BUN 35 and creatinine 4.12. Blood sugar 126. Patient underwent hemodialysis yesterday with removal of 2 L and is scheduled again today with goal of 2-3 L and is scheduled again tomorrow. 09/19: She is scheduled for hemodialysis today and is off fentanyl temporarily. Patient is status post trach and PEG tube yesterday. And she remains on mechanical ventilation. Pulse ox 93-95%. She has been afebrile, heart rate 64, respiratory rate 36, blood pressure 115/50. Fentanyl is off to improve blood pressure for hemodialysis which is scheduled for today. Contacted vascular surgery about permanent hemodialysis catheter. Repeat blood work reveals WBC 14.3, hemoglobin 9.6, platelet count 200. D-dimer 6.48. LDH 1686. C-reactive protein 1.1. BUN 34 creatinine 3.81. Sodium 130, potassium 3.5, chloride 101, CO2 18. Blood sugars running between 101 198. Plan is to wean off Pneumovax today. Patient remains on insulin drip. Repeat chest x-ray reveals bilateral multifocal confluent opacities consistent with COVID-19. Some improved aeration periphery of the left lung and worsening opacities throughout the right lung. 09/20: She remains in the intensive care unit on mechanical ventilation. She has been afebrile, heart rate 65, respiratory rate 37, blood pressure 121/70, pulse ox 91-99%. Repeat blood work reveals WBC 14.5, hemoglobin 9.1, platelet count 216. D-dimer 6.13. Sodium 133, potassium 3.1, chloride 102, CO2 18, BUN 35 and creatinine 4.27. Blood sugars running between 128 and 143. LDH 1717. C- reactive protein 1.7. Patient remains on insulin drip which will be transitioned to NovoLog scale every 6 hours. Patient is scheduled for permanent hemodialysis catheter placement today with vascular surgery. Repeat chest x-ray reveals stable diffuse bilateral interstitial and airspace disease. Possible small right effusion. His work is following for transfer to terminal superintendent care facility. Do not anticipate discharge until next week. 09/21: Patient is undergoing hemodialysis. She remains on mechanical ventilation with tidal volume 375, FiO2 down to 45 and PEEP was decreased to 15. Patient is continued on propofol, fentanyl drips. She is on tube feedings at goal. Patient was taken off insulin drip yesterday and on scale only but blood sugars are running in the 200s, Levemir scheduled at bedtime will be added. Other blood work reveals WBC 13.3, hemoglobin 8.7, platelet count 192. Sodium 137, potassium 3.6, chloride 107, CO2 18, BUN 34 and creatinine 4.21. Repeat chest x-ray is stable. 09/22: She remains in the intensive care on mechanical ventilation with tidal volume 375, FiO2 of 50 and PEEP of 10. Pulse ox is running 96%. She is afebrile, heart rate in the 50s, respiratory rate 36, blood pressure 100/64. Repeat blood work reveals WBC 16.5, hemoglobin 8.9, platelet count 213. Sodium 134, potassium 3.7, chloride 103, CO2 21, BUN 34 and creatinine 3.89. Blood sugars running in the 200s to 324. Levemir increased to 16 units at bedtime and continue NovoLog scale every 6 hours. Patient is on tube feedings at goal. She has a Haley catheter in with a scant amount of dark/brown urine. Fecal management system is in place. Repeat chest x-ray reveals diffuse bilateral airspace infiltrates persist unchanged. Patient is scheduled for hemodialysis tomorrow morning on Friday. 09/23: Patient remains on mechanical ventilation with tidal volume 3.75, FiO2 50 and PEEP of 10. emergency service restorer sinus rhythm. She has no urine output. Fecal management system is in place. She is undergoing dialysis at this time with plan for removal of 2-1/2 L. She has been afebrile, heart rate in the 50s, respiratory rate 36, blood pressure 108/76 and pulse ox 89%. WBC 13.6, hemoglobin 9.1, platelet count 194. Sodium 136, potassium 3.0 and was replaced, chloride 106, CO2 21, BUN 49 creatinine 5.31. Blood sugars are running between 182 and this morning 194. Patient was still in the 200s and 300s. Levemir last evening was increased to 16 units. Patient remains on propofol and fentanyl drips. Lovenox was increased to 60 mg twice daily. 09/24: PEEP was increased today to 20, tidal volume is at 375 and FiO2 of 50%. Patient has been afebrile. She has been started on levo fed. Repeat chest x- ray reveals bilateral multifocal confluent opacities consistent with Covid 19 or ARDS redemonstrated. Nephrology will plan dialysis for tomorrow for 3 L. Patient remains on propofol fentanyl and Nimbex. WBC 12.5, hemoglobin 9.8, platelet count 161. D-dimer 13.3. Sodium 132, potassium 3.4, chloride 102, CO2 20, BUN 48 and creatinine 4.67. Blood sugars extremely elevated to 96-409. LDH 2217. 09/25: Patient remains in the intensive care unit on mechanical ventilation with tidal volume 375, FiO2 50 and PEEP of 20. Patient is afebrile, heart rate 61, respiratory rate 36, blood pressure 102/56, pulse ox 97%. Repeat blood work reveals WBC 9.3, hemoglobin 8.5 and platelet count 171. Sodium 130, potassium 3.7, chloride 100, CO2 20, BUN 61 creatinine 5.65. Blood sugars have been elevated up to 455. Levemir increased to 20 units twice daily, NovoLog 5 units every 6 hours and continue NovoLog scale. Patient is scheduled for hemodialysis today. Repeat chest x-ray reveals bilateral multifocal and confluent opacities. Decadron and Lovenox dosing change by pulmonary. Patient is off norepinephrine. 09/26: Patient remains in the intensive care unit on mechanical ventilation with tidal volume 375, FiO2 50 and PEEP of 15. She has been afebrile, heart rate 91, blood pressure 114/68, pulse ox 99%. emergency service restorer sinus rhythm. 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 Sodium 134, potassium 3.6, chloride 102, CO2 22, BUN 41 creatinine 4.21. Patient has improved blood sugars this morning running 150s and 160s. Diabetic medications were adjusted yesterday. Patient is awake and alert and interacting. Yesterday, patient had PICC line inserted by interventional radiology. Repeat chest x-ray reveals diffuse airspace infiltrates in both lung ann appear to progress slightly in the interval. 09/27: Patient remains in intensive care unit on mechanical ventilation with improvement of settings with tidal volume 375, FiO2 decreased to 40 and PEEP decreased to 10. Patient is on hemodialysis every other day and plan to remove 3 L today. Patient is more awake and alert. She is slow to respond but is able to follow simple commands. Blood sugars are running between 84 and 123. Repeat blood work reveals WBC 7.1, hemoglobin 8.1, platelets 152. Sodium 135, potassium 3.6, chloride 103, CO2 21, BUN 53 and creatinine 5.88. Repeat chest x-ray revealed cardiomegaly and pulmonary edema. Patient is on tube feedings:. Patient is not require vasopressors and is off sedation. Fecal management system remains in place for brown liquid stool. C. difficile was negative. 09/28: Patient remains on mechanical ventilation with tidal volume 375, FiO2 increased to 80 and PEEP increased to 18. Patient had a rough night was very anxious, no pain. Xanax 0.25 mg 3 times daily was added. There is concern for pulmonary embolism for which patient was started on heparin drip, she is unable to undergo CAT scan. Venous Doppler bilateral lower extremities was nondiagnostic due to extensive edema in obese patient but minimal imaging of the popliteal veins does show flow. Repeat echocardiogram has been ordered. Cefepime has also been ordered at 1 g IV piggyback every 24 hours as well as vancomycin, pharmacy dosing. Patient is back on fentanyl drip, propofol drip and norepinephrine. Blood sugars are elevated and insulin Levemir will be increased to 25 mg twice daily. Ferrlecit infusion has been ordered by nephrology for 4 days. Patient is undergoing hemodialysis today.temperature max 100.2, heart rate 134, respiratory rate 34, blood pressure 120/65, pulse ox 94%. emergency service restorer is sinus tachycardia. Repeat blood work reveals WBC 16.9, hemoglobin 9.7, platelet count 216. D-dimer 8.81. Sodium 134, potassium 3.8, chloride 99, CO2 25, BUN 43 and creatinine 5.36. Blood sugars in the 200s. AST 40. 09/29 Patient had declined more last 48 hours require more sedation, patient is doing hemodialysis, respiratory failure is quite bit worse this time. Patient was inquired the pain is well back on fentanyl drip. Her vent set up with PEEP is limited but higher. No new finding on culture and her chest x-ray continues shows diffuse infiltrate persistent although there is a moderate interval improvement. 09/30 patient's was seen and evaluated. PEEP was reduced to 11 as patient is maintaining good saturation at the current vent settings. 10/01 patient was seen at bedside. She is currently on assist control rate of 28 white tidal volume 350 FiO2 50% and PEEP of 10 which has been reduced by pulmonary as patient name cleaning her oxygen saturation. Arm blood gas was obtained with a pH of 7.35 pCO2 37 pO2 of 63. She remains hemodynamically stable with no need for pressors. Labs were reviewed patient's BUN is 29 creatinine 3.93 glucose 122 albumin 2.2 sodium 131 chloride 19 hemoglobin is downtrending with a Hb of 7.3 no leukocytosis 7.1. Patient's urine output is minimal at this time. Her rate has increased to 129 and is currently on pos itive fluid balance even with dialysis. Last dialysis was done yesterday. Continue enteral feeding currently at goal. Antibiotic has been discontinued and continues to remain on DEXA methicillin 4 mg IV daily. 10/02 patient continues to be on trach support with mechanical ventilation. Patient was evaluated by bindery chief and was switched to VC control as patient was noted to be double stacking on and off throughout the night. Respiratory rate continue to 28 tidal volume increased to 400 with a PEEP for Dr. Downey. Patient is maintaining oxygen saturation 91% on the current setting. According to the nurse bedside patient saturation drops significantly or she is moved or her sedation is dropped. Patient is currently on propofol drip, fentanyl drip. She did underwent dialysis today and was able to maintain her low pressure without the need of pressors. Labs reviewed today suggest a WBC of 6.7 hemoglobin of 7.0 and d-dimer 3.9 bicarb 17 BUN 38 creatinine 4.8. LDH is 964. Sodium 1:30 likely secondary to volume overload. Urine sodium and urine osmolality ordered. Patient's glucose this morning is 146. Continue to remain on enteral feeding. Urine output is reduced. Fall catheter will be placed today. Continue to remain on dialysis. 10/03: Patient remains on mechanical ventilation and is back on propofol and fentanyl drips. Patient is currently on VC control with tidal volume 400, FiO2 55 and PEEP of 12. Patient still is not making any urine and is dialysis dependent with next treatment planned for tomorrow with removal of 3-3-1/2 L. PEG tube feedings are at goal. Fecal management system remains in place. At the time of evaluation, patient is off levophed. Repeat chest x-ray reveals stable diffuse bilateral airspace disease correlate for ARDS, pulmonary edema or diffuse pneumonia. Temperature max last evening was 101. Temperature currently 99, heart rate 106, respiratory rate 32, blood pressure 101/50, pulse ox 86%. Repeat blood work reveals WBC 6, hemoglobin 7.4, platelet count 160. D-dimer 4.05. Sodium 133, potassium 3.5, chloride 100, CO2 23, BUN 31 creatinine 3.8. Blood sugars are running between 100 and 170. Ferritin 1514. Liver function test normal. LDH 1016, C-reactive protein 13.6. Prognosis remains guarded. 10/04: Patient remains intubated on mechanical ventilation with tidal volume 400, FiO2 65, PEEP of 14. Patient continues to run fevers and repeat blood culture and urine and urine culture ordered for today. Haley catheter has been removed this patient has no significant urine output at about 20 mL per shift. BladderScan is monitored for greater than 300 and the patient is straight cathed. Hemoglobin is 6.8 and she has been ordered 41 unit of packed RBCs today. She is currently on propofol and fentanyl drips. She is scheduled for hemodialysis today. WBC 4.5, hemoglobin 6.8, platelet count 151. D-dimer 3.28. Sodium 132, potassium 4.1, chloride 100, CO2 22, BUN 37 creatinine 4.74. Blood sugars running between 97 and 110. Ferritin 1801. LDH 859. C-reactive protein 14.4. Chest x-ray reveals correlate for pneumonia, edema, ARDS. Prognosis remains guarded. 10/05: Patient remains in intensive care unit currently on mechanical ventilation with tidal volume 400, FiO2 was increased to 100 and PEEP is at 14. She continues to run fevers which have worsened with temperature max 103.1. She has been tachycardic in the 130s, blood pressure is marginal but not on vasopressors. Pulse ox currently 92%. Repeat blood work reveals WBC 5.5, hemoglobin 7.6, platelet count 190. D-dimer 2.7, ferritin 1770, LDH 932, C- reactive protein 21.4. Blood sugars are running between 100 1669. Electrolytes are normal. BUN 27 and creatinine 3.79. Pancultures were done yesterday including a straight cath for urine culture, sputum culture and blood culture. Arterial line was removed as well as midline. She is currently on propofol, fentanyl and started on Nimbex today. 10/06: Patient remains in the intensive care unit. Today patient in prone position and remains on mechanical ventilation with tidal volume 350, FiO2 65 and PEEP of 14. Her last documented fever was yesterday at 2 PM. Heart rate is in the 120s, respiratory rate 32, pulse ox 88-92%. CBC is unremarkable. Electrolytes are normal. BUN 30 creatinine 2.93. Blood sugars are running between 135 and 164. Cultures from October 04: Blood culture no growth, sputum culture finalized, urine culture finalized. Catheter tip culture is in process. Repeat chest x-ray shows bilateral interstitial infiltrates. Patient is on tube feedings of Nepro at goal of 30 ML's per hour. Patient underwent dialysis yesterday and is scheduled for repeat dialysis today. 10/07: Patient maintains in the intensive care unit intubated and on mechanical ventilation. She is receiving hemodialysis this morning has been every day. Plan is to remove 2-1/2 L today. Vent settings have changed today with tidal volume 350, FiO2 was increased to 100% and PEEP remains at 14. She has been continued on Nimbex, fentanyl, norepinephrine and propofol. Plan is to prone p osition patient following dialysis. Repeat chest x-ray reveals worsening interstitial infiltrates. BUN is 26 and creatinine 2.59. LDH 955, C-reactive protein 22.1. Prognosis remains poor. 10/08: Patient remains in intensive care unit intubated and on mechanical ventilation with tidal volume 350, FiO2 60, PEEP of 14. She is pronating today. She is scheduled for hemodialysis on a daily basis. She has been afebrile, heart rate 112, respiratory rate 36, blood pressure 161/88, pulse ox 93%. Repeat blood work reveals WBC 9.9, hemoglobin 9.1, platelet count 320. Sodium 133, potassium 5.3, chloride 100, CO2 20, BUN 29 creatinine 2.44. Blood sugar running between 102 and 139. LDH 1026, C-reactive protein 19.7. 10/09: Patient is undergoing dialysis this morning. She continues to be intubated and on mechanical ventilation with tidal volume 350, 270 and PEEP of 14. Patient is also on propofol, Nimbex, norepinephrine and fentanyl drips. Repeat chest x-ray reveals persistent bilateral multifocal and confluent opacities consistent with Covid 19. She is afebrile, heart rate 116, respiratory rate 36, blood pressure 120/65, pulse ox 91%. Repeat blood work reveals WBC 5.4, hemoglobin 9.2, platelet count 216. D-dimer 2.67, ferritin 2568, LDH 794, C- reactive protein 13.9. Blood sugars have been running 90-104. Creatinine 1.64. She is on daily dialysis treatment. 10/10: She remains in the intensive care unit. She is now out of isolation as a repeat Covid test came back negative. She remains on mechanical ventilation with tidal volume 350, FiO2 70 and PEEP of 14. Patient is also on Nimbex, propofol, norepinephrine, fentanyl drips. She is on PEG tube feedings at goal and tolerating well. Repeat blood work reveals WBC 7.8, hemoglobin 7.5, platelet count 267. Sodium 139, potassium 3.9, chloride 109, CO2 20, BUN 20 creatinine 1.29. Blood sugars are running between 76 and 102. Scheduled NovoLog decreased to 3 units. Repeat chest x-ray reveals moderate cardiomegaly and continued pulmonary edema. Slight interval improvement. Patient is continued on daily hemodialysis. 10/11: Patient remains in intensive care unit on mechanical ventilation with tidal volume 325, FiO2 70, PEEP 14. She is currently being prone. She underwent hemodialysis this morning with removal of 4 L of fluid with plan to continue daily treatment. She is currently on Nimbex, fentanyl and propofol. No vasopressor at this time. Fecal management system remains in place. She is on tube feedings currently at hold due to prone positioning. Patient has been afebrile, heart rate 116, respiratory rate 36, blood pressure 100/58, pulse ox 93-96%. Repeat blood work reveals WBC 9.3, hemoglobin 8.1, platelet count 276. Sodium 136, potassium 4.3, chloride 103, CO2 20, BUN 20 creatinine 1.14. Blood sugars running between 133 and 202. 10/12: Patient remains in the intensive care unit. She is undergoing hemodialysis this morning. She's been afebrile, heart rate in the 120s, respiratory rate 32, blood pressure 102/65. She is not on vasopressors. She is continued on Nimbex, fentanyl and propofol. Vent settings are currently tidal volume 325, FiO2 70, PEEP 14. Total platelet count 273. Sodium 133, potassium 4.7, chloride 100, CO2 19, BUN 21 creatinine 0.91. Blood sugars running between 121 and 143. 10/13: Patient remain in the ICU she is on hemodialysis daily, she is still on the vent with a PEEP of 14 and FiO2 of 70. Her oxygenation is marginal pulse rate still high. Patient had scratched cornea was seen in ophthalmology decided to keep doing eyedrops along with eye patch at this point. Prognosis still very bad this point. 10/14: She remains on mechanical ventilation with tidal volume 325, FiO2 70% and PEEP of 14. She did require label fed last evening for about 6 hours. She did not tolerate pronating yesterday. She is undergoing dialysis this morning with plan for removal of 4 L. Blood sugars have been low and IV fluids changed to D10 until blood sugars have recovered. Levemir and scheduled NovoLog discontinued. Patient is on tube feedings at goal there's been no change in this. 10/15 patient remains on mechanical ventilation in the intensive care unit. FiO2 still at 70%, PEEP of 18. Blood sugars have improved since medications were adjusted. White blood cells 33.9, hemoglobin 8.5, sodium 135, BUN 19, creatinine 0.96. Patient to receive dialysis again today. Patient did run a low-grade fever throughout the night and pro calcitonin level is ordered. Chest x-ray showed continued diffuse bilateral airspace disease. Patient remains on tube feedings at goal. 10/16: Patient remains on mechanical ventilation with tidal volume 300, FiO2 70, PEEP of 15. Fecal management system is out. She is currently on low dose of norepinephrine. She is also on fentanyl drip, propofol drip, rocuronium drip. Heart rate is running in the 130s, sinus rhythm, blood pressure 121/63, pulse ox 95%. Patient is been afebrile. Repeat blood work reveals WBC 18.9, hemoglobin 7.5, platelet count 291. Sodium 135, potassium 4.2, chloride 101, CO2 19, BUN 25 and creatinine 1.36. Blood sugars are running between 143 and 199. Patient is on scale insulin only. Repeat chest x-ray reveals persistent bilateral multifocal and completed opacities consistent with Covid 19. 10/17: Patient remains on mechanical ventilation with tidal volume 300, FiO2 50, PEEP of 14. She is currently receiving hemodialysis. The patient is having yellow-colored drainage from the trach site. This is going to be culture today. Repeat blood work reveals WBC of 24, hemoglobin 7.3 and platelet count 310. Sodium 136, potassium 4.1, chloride 101, CO2 19, BUN 24 creatinine 1.43. Blood sugar 139. Capillary blood glucose running 147 and 189. Repeat chest x-ray is unchanged. Patient had increased respiratory rate 40s and 50s with oxygen saturation of 87 and now was increased and Seroquel added this morning. Prognosis remains guarded. 10/18: Patient remains on mechanical ventilation with tidal volume 300, FiO2 60, PEEP has been decreased to 12. Patient will need a PEEP of 8 in order to transfer to long-term care. She is currently on fentanyl drip and Precedex drip. Patient is tracking when her name is stated. She seems to be slightly improved today. Patient has been afebrile, heart rate 106, respiratory rate 32, blood pressure 110/61, pulse ox 98%. Repeat blood work reveals WBC 30.3, hemoglobin 7.2, platelet count 350. Sodium 139, potassium 4.2, chloride 103, CO2 20, BUN 23 creatinine 1.79. Blood sugars are increasing running up 299. Patient will be placed on Levemir. Secretions from tracheotomy sent for culture and in process. She is currently undergoing hemodialysis. 10/23: Patient remains in the intensive care unit on mechanical ventilation with tidal volume 300, FiO2 65 and PEEP of 10. emergency service restorer has been in a sinus rhythm. Patient does open her eyes and appears to be tracking. Blood sugars have been elevated. Levemir will be increased to 40 units daily and scheduled NovoLog increased to 12 units and continue NovoLog every 6 hours per scale. Patient is receiving hemodialysis today. She is not currently on vasopressors. Patient is on Precedex drip only. Antibiotics in the form of cefepime were started on October 18. Patient has been afebrile, heart rate 126, respiratory rate 36, blood pressure 163/105. Pulse ox 91%. Repeat blood work reveals WBC 16.0, hemoglobin 7.2, platelet count 208. Electrolytes are within normal limits. BUN 62 and creatinine 2.43. Blood sugars running between 259-321. Most recent blood culture from October 22 is no growth at 24 hours. Repeat chest x-ray reveals cardiomegaly and persistent bilateral pulmonary edema. 10/24: Patient is awake, eyes are open and tracking, she is able to follow simple commands. Severe generalized weakness noted. Precedex gtt has been discontinued. Patient is receiving hemodialysis. Her blood sugars have remained elevated for which Levemir increased to 25 units twice daily along with 15 units of NovoLog every 6 hours along with scale. Tidal volume 330, FiO2 60, PEEP of 8. table games shift manager and social work therapist following closely. Anticipate possible discharge by the end of next week to long-term care facility. 10/25: Patient remains in the intensive care unit on mechanical ventilation. Tidal volume 350, FiO2 60, PEEP 8. She is receiving hemodialysis this morning. Her heart rate remains elevated in the 130s. Pulmonary as started her on Cardizem at 60 mg 3 times daily which has not had any improved effect. We'll start the patient on Lopressor 25 mg twice daily. Patient has been afebrile, heart rate respiratory rate 32, blood pressure 151/91, pulse ox 98%. Patient is been transfuse 1 unit of packed RBCs today. Patient's mental status is improving and patient is able to follow simple commands. WBC 12.2, hemoglobin 6.3, platelet count 196. Sodium 135 otherwise looked lites are normal, BUN 48 creatinine 1.99. Blood sugars are running between 120 and 172. Levemir has been increased to 30 mg twice daily continue 15 units of NovoLog every 6 hours with scale. 10/26: Patient remains in intensive care unit, on mechanical ventilation with tidal volume 375, FiO2 50, PEEP of 8. Patient's heart rate remains elevated 120s and Lopressor increased to 50 mg twice daily. Patient seems to be quite anxious and depressed. We will decrease Seroquel to 50 mg twice daily and start patient on Lexapro. Patient received her first dose of Xanax this morning but this did not seem to help heart rate either. She has been afebrile, heart rate 128, blood pressure 149/79, pulse ox 93%. Repeat hemoglobin 7.3. Sodium 135, potassium 3.9, chloride 90, CO2 30, BUN 45 and creatinine 1.94. Blood sugar are improved running between 117-194. We will make further adjustments to insulin and to increase long-acting to 35 units twice daily and decrease NovoLog scheduled to 7 units and continue NovoLog scale. There are problems with patient's trach and consequently placed with [facility]. General surgery to reevaluate trach. 10/27: Patient is complaining of nausea today. Concerned that this is related to Lexapro. We will further decrease Seroquel to 50 mg at bedtime. Patient is being bladder scanned and last bladder scan wasn't 125 mL. She does not have Haley catheter. No fecal management system. She is having a bowel movement about 3 per day. Plan is for CPAP trial today. She is currently on mechanical ventilation with tidal volume 375, FiO2 50 and PEEP of 8. She has been a febrile, heart rate 105 which is much improved from the last few days. Blood pressure 145/88, pulse ox 94%. There is a new consult in place for Dr. Clemente regarding exchanging the trach and possible debridement at site. WBC 11.4, hemoglobin 8.2, blood count 218. Sodium 136, potassium 4.1, chloride 97, CO2 31, BUN 47 creatinine 1.97. Blood sugars running between 129 and 204. We have changed long acting insulin to 35 units twice daily and continue NovoLog 7 units every 6 hours and scale every 6 hours. Nephrology may be decreasing frequency of dialysis treatments. Anticipate probable discharge to long-term care next week. 10/28: Patient was complaining of nausea today which has resolved. CPAP trial will continue today. She is currently on mechanical ventilation with a tidal volume 375, FiO2 of 50, PEEP of 8. She is afebrile, heart rate 108 which continues to show improvement. Blood pressure 133/87, pulse ox 99%. Patient is able to follow commands. And answers appropriately with nodding her head. WBC 10.5, hemoglobin 8.0, potassium 4.6, BUN 46, creatinine 1.96. Patient is currently receiving hemodialysis. 10/29: Patient was found sitting up in bed. Able to answer some questions appropriately. Utilizing kim. Able to follow commands. [place] over elevated blood sugars. Levemir 35 units twice a day will continue at this with a 7 unit coverage. Patient remains afebrile. Heart rate 102, respirations 29, blood pressure 124/74, pulse ox 97% on mechanical ventilation. Mechanical ventilation settings with a tidal volume 375, FiO2 of 50 and a PEEP of 8. Family has been into see patient. Hemodialysis will be held today. 10/30: Patient remains in the ICU on mechanical ventilation. She is not requiring pressure support. She is on CPAP support. She is receiving hemodialysis this morning with plan to start a Friday schedule this week. Blood sugars are stable and running between 140 and 184. She is on tube feedings at goal and having bowel movements every 12 hours. Repeat blood work reveals WBC 8.9, hemoglobin 10.2, platelet count 258. Sodium 133, potassium 5.0, chloride 97, CO2 23, BUN 69 creatinine 2.67. 10/31: Patient is seen today in intensive care unit. She remains on mechanical ventilation with tidal volume 375, FiO2 45 of PEEP of 5. Patient is found sitting in a chair working with physical therapy. Patient is noted to have left arm weakness without pain and good sensation. She is not receiving dialysis today and will be started on Friday regime. Patient's heart rate is better controlled in the 80s, blood pressure 113/65, pulse ox 99%. Patient is been afebrile. Patient has been on cefepime. Repeat blood work reveals WBC 9.3, hemoglobin 6.9 and patient is transfused 1 unit of packed RBCs today. Platelet count 248. Electrolytes are within normal range, BUN 38 and creatinine 2.04. Her blood glucose running between 130 and 193. AST 38. Social work is working with the daughter regarding discharge planning. 11/01: A she was undergoing dialysis with plan for 3 L removed today and dialysis is scheduled Friday. She is in bed and appears to be comfortable. She is able to talk and express herself and is cognitively intact. She remains on mechanical ventilation. She has been afebrile, heart rate 107, blood pressure 115/85, pulse ox 99%. Repeat blood work reveals WBC 8.5, hemoglobin 7.5, platelet count 278. Sodium 136, potassium 4.8, chloride 100, CO2 27, BUN 55 creatinine 2.81. Blood sugar running between 114 and 185. Calcium 10.3, total bilirubin 0.2, AST 34, ALT 34, alkaline phosphatase 144. Social work is working on discharge planning which will be to [facility], [facility] or [facility]. 11/02: Patient remains in the intensive care unit on mechanical ventilation with tidal volume 375, FiO2 40, PEEP of 5. Patient's mental status continues to be improved. She has been afebrile, heart rate 97, blood pressure 144/86, pulse ox 98%. Repeat blood work reveals WBC 8.3, hemoglobin 7.2, platelet count 255. Sodium 135, potassium 4.5, chloride 98, CO2 20, BUN 42 and creatinine 2.36. Blood sugars are running between 124 278. She is scheduled for hemodialysis tomorrow with plan for 4 L to be removed. Social work is working on discharge plan and once patient has been accepted and insurance authorization is obtained if needed, patient will be discharged. 11/03: Patient remains in intensive care unit on mechanical ventilation patient is currently on pressure support of 15, CPAP of 5 and FiO2 of 40%. A trach collar is to be attempted today in order to get the patient discharged [facility] care facility. Land is for medical [place] [facility] on Friday if patient continues to improve. He has been afebrile, heart rate in the 80s, blood pressure 90/57, pulse ox 100%. Repeat blood work reveals WBC 7.5, hemoglobin 6.9, platelet count 255. Sodium 133, potassium 5.1, chloride 97, CO2 27, BUN 59 creatinine 3. Blood sugars up and running 117 164. 11/04 patient remains in ICU, this is day number 55, pulmonary is following closely, they have recommended fenestrated trach, for which Dr. warren is going to perform, patient is anticipated to be discharged to long-term care facility, most likely early next week. She is stable, with no new fevers, antibiotics has been completed, blood sugars are stable, hemoglobin 7.7, WBC 8.5, blood sugars running between 145-150, creatinine of 2.34 11/05: Patient remains in ICU, trach collar replaced by Dr. Zhang this a.m., patient's communicating with handwritten communication mentions that she has back pain, on IV Dilaudid still, we'll replace Oberlin 7.5, also cannot sleep, muscle relaxants started with cyclobenzaprine, where finalizing discharge planning, to subacute rehab long-term care no fever no chills, coughing a lot, with mucus production, suctioning on the trach when necessary by nursing staff, 11/06: Patient is still having refractory sleep, wakes up with chills and sweats, also. Alternating hot and cold, iron is suspected to be low, hemoglobin of 7.2, check for iron studies, on Ativan and aspirin, start melatonin 6 mg at bedtime, might need Zestril, however is on Seroquel. We'll going to increase Seroquel to 75 mg blood sugars are stable, no change in program today, pain control is better, using Ober[place] 7.5. 11/07: Patient remains in the intensive care unit on trach collar at FiO2 of 35%, flow rate of 8. Patient states that she slept better last evening. We will add in consult for speech therapy to evaluate if patient can start on oral food. She is currently on tube feedings at goal. Repeat blood work reveals WBC 7.9, hemoglobin 8.0, platelet count 238. Sodium 130, potassium 3.9, chloride 93, CO2 28, BUN 48 creatinine 2.84. Capillary blood glucose running between 75 and 129. Iron 22, TIBC 244, iron saturation 9.0 to. Total bilirubin 0.1, AST is 26, ALT 27, alkaline phosphatase 115. TSH 1.7. 11/08: Social work is trying to determine discharge plan. Currently looking at inpatient rehab facilities. Patient has been seen by speech therapy and approved for oral intake and she is having her first meal today. She is undergoing hemodialysis today. She's been afebrile, heart rate 88, blood pressure 155/96, pulse ox 94% on trach collar 35% FiO2. Blood sugars are running in the 70s and 80s. Patient is working with therapies. 11/09: Patient is off tube feedings completely and taking all oral nutrition. Dr. See stopped the scheduled Levemir is now blood sugars are on the low side. Patient states she is sleeping well. Seroquel has been completely discontinued. She has been afebrile, heart rate 96, blood pressure 124/78, pulse ox 96% on trach earlier at 35 FiO2. Repeat blood work reveals sodium 138, potassium 3.8, chloride 106, CO2 26, BUN 25 and creatinine 2.26. Blood sugars running between 48 and 125. forestry worker is trying to make placement for the patient for rehab. 11/10: Patient has been resumed on tube feedings due to low oral intake. She is receiving dialysis this morning and is nauseated and does not feel well. She has been downgraded to move to the MedSur floor. Midline has been ordered and PICC line discontinued. A consult has been placed with Dr. Walker for evaluation of inpatient rehab. Noted he has documented limited endurance and would not be able to participate in the full inpatient rehab program. Patient has been afebrile, heart rate 95, blood pressure 154/82. Pulse ox 88% on trach collar. Repeat blood work reveals sodium 134, potassium 4.2, chloride 103, CO2 22, BUN 13 creatinine 2.94. Blood sugars are running between 101 125. 11/11: Patient is sitting up in bed in no acute distress. Exercise has been given for patient to be transition to full inpatient rehab program. Patient remains afebrile, heart rate 116, blood pressure 160/109, respirations 22, pulse ox is 90% with movement on a trach collar. FiO2 60. Patient able to answer questions appropriately. Tolerating diet. Hydralazine ordered for elevated blood pressure. 11/12: Sitting in bed in no acute distress. She is experiencing some episodes of constipation. And difficulty sleeping at night. He remained afebrile, blood pressure 151/91 heart rate 112, pulse oximetry 92% on trach collar. Patient continues with a exercise program to support transition to a full inpatient rehab program. 11/13: Patient remains in intensive care unit. She appears to be comfortable and in no acute distress. Patient has a trach collar in place at 40% FiO2. There has been intermittent The trach done. Patient is taking oral diet as well as feedings per PEG tube is her oral diet is not enough to sustain her. She continues to have significant weakness and requires rehab. Social work is following closely and trying to find inpatient rehab facility for her. Patient's been afebrile, heart rate 98, blood pressure 166/108, pulse ox 99%. Hydralazine will be increased to 100 mg 3 times daily. Repeat blood work reveals WBC 11.4, hemoglobin 8.6, platelet count 246. Sodium 133, potassium 3.5, chloride 96, CO2 26, BUN 36 creatinine 3.17. Blood sugars running 113 260. 11/14: Patient remains in the intensive care unit. Fortunately, this morning Dr. Dykes has to cannulated today and patient is now on O2 at 3 L nasal cannula. She has a gauze dressing over the tracheostomy site. Patient is seen today sitting up in a chair in intensive care unit. Hemoglobin is 8.6, electrolytes are normal, BUN 36 and creatinine 3.17. Patient is continued on hemodialysis Friday. Patient continues to work with physical therapy and occupational therapy. Social work is working on discharge planning to subacute or long-term care facility for rehab. 11/15: Patient is seen today on the Med[facility] floor. She is found sitting in a chair at the bedside and appears to be comfortable. She apparently had concerns for rash on the back and back of her thighs last evening and Benadryl was ordered. I was evaluating appears to be dry skin and Lac-Hydrin will be added instead. Patient has been afebrile, heart rate 111, blood pressure 150/62, pulse ox 97% on 4 L nasal cannula. Social work is working on subacute rehab at [facility] P blood work reveals WBC 11.0, hemoglobin 7.7, platelet count 237. Sodium 129, potassium 3.6, chloride 92, CO2 31, BUN 33 creatinine 2.74. Blood sugars running between 105 195. Discussed this with patient and she does not want to go there but her discharge options are very limited. forestry worker is also looking at acute/subacute rehab at [facility]. Patient does require insurance authorization prior to discharge. Anticipate everything will be in order for discharge by Friday. 11/16: Pulse ox is morning running between 85 and 87% and oxygen was increased to 5 L with pulse ox in the low 90s. Patient is having a cough for which chest x- ray will be ordered as well as Mucinex added. Patient has been afebrile, heart rate 113, blood pressure 125/79, pulse ox 90% on 5 L nasal cannula. Blood sugars are running between 148 and 197. Social work is now looking at discharge planning to [facility] which patient has been accepted and we're waiting for insurance authorization. 11/17: Family brought to the nurse's attention yesterday that patient was having some minor hallucinations and they thought it was related to Lexapro which we discontinued. Most likely any symptoms would be related to the Benadryl which will be discontinued today. Patient complains of cough and sputum production. She was started on Mucinex yesterday. Pro-calcitonin has been ordered. Patient remains on 5 L nasal cannula with pulse ox of 92%. She has been afebrile, heart rate 105, blood pressure 137/85. Repeat blood work reveals WBC 14.8, hemoglobin 7.5, platelet count 243. Sodium 131, potassium 3.4, chloride 89, CO2 30.5. BUN 29 creatinine 2.4. Blood sugars are running between 133 and 214. Inappropriate setting. The patient will be discharged to [facility] in stable condition. ASSESSMENT AND PLAN 1. Acute hypoxic respiratory failure secondary to Covid 19 pneumonia and possible bacterial pneumonia. Status post PEG tube and trach with subsequent removal of trach. Completed antibiotics. 2. Acute diabetic ketoacidosis secondary to Covid 19 pneumonia, uncontrolled with hyperglycemia. 3. Metabolic encephalopathy secondary to Covid 19 and DKA. 4. Sepsis and septic shock secondary to Covid 19 pneumonia with multiorgan failure. 5. Acute metabolic acidosis secondary to acute DKA, Covid 19 and acute kidney injury. 6. Diabetes mellitus type 2 uncontrolled with A1c 13.6. 7. Hypophosphatemia status post replacement. 8. Hyperkalemia secondary to DKA, resolved. 9. Sinus tachycardia secondary to sepsis, volume deficiency. 10. Acute kidney injury secondary to ATN secondary to Covid 19 and DKA. 11. Citrobacter pneumonia versus MRSA pneumonia. Completed course of antibiotics. 12. Hypertension. 13. Morbid obesity with BMI of 53. 14. Situational depression and anxiety. 15. DVT prophylaxis. Lovenox. 16. GI prophylaxis. 17. Stage IV pressure ulcer to trach site. 18. Stage II decubitus ulcer to coccyx. 19. Critical illness polyneuropathy and myopathy. 20. Anemia of chronic disease. Transfused total of 3 units of packed RBCs CODE STATUS: Full code DISCHARGE PLAN [facility] on Friday Impression and plan of care have been directed as dictated by the signing physician. Kimberly Boswell nurse practitioner acting as scribe for signing physician. Patient Condition at Discharge: Stable Plan - Discharge Summary New Discharge Prescriptions: New Artificial Tears-Hypromellose [Artificial Tear Drops] 2 drops BOTH EYES QID PRN bottle PRN Reason: Dry Eye(S) Diltiazem Oral [Cardizem*] 60 mg PO TID tab Enoxaparin [Lovenox] 30 mg SQ DAILY syringe HYDROcodone/APAP 7.5-325MG [[place]lin 7.5-325] 1 each PO Q6H PRN #18 tab PRN Reason: Pain Hydrophilic Cream [Triad Cream] 1 applic TOPICAL DAILY applic Acetaminophen Tab [Tylenol] 650 mg PO Q6HR PRN tab PRN Reason: Fever And/ Or Pain Albuterol Inhaler [Ventolin Hfa Inhaler] 2 puff INHALATION RT-QID puff Lactulose [Cephulac] 20 gm PO BID ml Ammonium Lactate Lotion [Lac-Hydrin 12% Lotion] 1 applic TOPICAL BID applic guaiFENesin [Mucinex] 1,200 mg PO Q12HR tablet.er INSULIN ASPART (NovoLOG) [NovoLOG (formulary)] 0 unit SQ ACHS vial Sennosides [Senokot] 8.6 mg PO BID tab Darbepoetin Emerson [Aranesp] 40 mcg SQ Q7D syringe Metoprolol Tartrate [Lopressor] 50 mg PO BID tab Nystatin 100,000 Unit/gm Powd [Mycostatin Powder] 1 applic TOPICAL TID applic Chlorhexidine Gluconate [Peridex] 15 ml MUCOUS MEM BID ml Sevelamer [Renvela] 1,600 mg PO Q6HR tab ALPRAZolam [Xanax] 0.25 mg PO BID PRN #6 tab PRN Reason: Anxiety Zolpidem [Ambien] 5 mg PO HS PRN tab PRN Reason: Insomnia hydrALAZINE HCL [Apresoline] 100 mg PO TID tab INSULIN ASPART (NovoLOG) [NovoLOG (formulary)] 7 unit SQ ACHS vial Pantoprazole [Protonix] 40 mg PO AC-BRKFST tablet. Ascorbic Acid [Vitamin C] 500 mg PO BID tab Discontinued sitaGLIPtin PHOSPHATE [Januvia] 100 mg PO DAILY metFORMIN HCL 1,000 mg PO BID Discharge Medication List ALPRAZolam [Xanax] 0.25 mg PO BID PRN #6 tab 11/07/20 [Rx] Acetaminophen Tab [Tylenol] 650 mg PO Q6HR PRN tab 11/07/20 [Rx] Albuterol Inhaler [Ventolin Hfa Inhaler] 2 puff INHALATION RT-QID puff 11/07/20 [Rx] Artificial Tears-Hypromellose [Artificial Tear Drops] 2 drops BOTH EYES QID PRN bottle 11/07/20 [Rx] Chlorhexidine Gluconate [Peridex] 15 ml MUCOUS MEM BID ml 11/07/20 [Rx] Darbepoetin Emerson [Aranesp] 40 mcg SQ Q7D syringe 11/07/20 [Rx] Diltiazem Oral [Cardizem*] 60 mg PO TID tab 11/07/20 [Rx] Enoxaparin [Lovenox] 30 mg SQ DAILY syringe 11/07/20 [Rx] HYDROcodone/APAP 7.5-325MG [Oberlin 7.5-325] 1 each PO Q6H PRN #18 tab 11/07/20 [Rx] Hydrophilic Cream [Triad Cream] 1 applic TOPICAL DAILY applic 11/07/20 [Rx] Metoprolol Tartrate [Lopressor] 50 mg PO BID tab 11/07/20 [Rx] Nystatin 100,000 Unit/gm Powd [Mycostatin Powder] 1 applic TOPICAL TID applic 11/07/20 [Rx] Sevelamer [Renvela] 1,600 mg PO Q6HR tab 11/07/20 [Rx] Ammonium Lactate Lotion [Lac-Hydrin 12% Lotion] 1 applic TOPICAL BID applic 11/17/20 [Rx] Ascorbic Acid [Vitamin C] 500 mg PO BID tab 11/17/20 [Rx] INSULIN ASPART (NovoLOG) [NovoLOG (formulary)] 0 unit SQ ACHS vial 11/17/20 [Rx] INSULIN ASPART (NovoLOG) [NovoLOG (formulary)] 7 unit SQ ACHS vial 11/17/20 [Rx] Lactulose [Cephulac] 20 gm PO BID ml 11/17/20 [Rx] Pantoprazole [Protonix] 40 mg PO AC-BRKFST tablet. 11/17/20 [Rx] Sennosides [Senokot] 8.6 mg PO BID tab 11/17/20 [Rx] Zolpidem [Ambien] 5 mg PO HS PRN tab 11/17/20 [Rx] guaiFENesin [Mucinex] 1,200 mg PO Q12HR tablet.er 11/17/20 [Rx] hydrALAZINE HCL [Apresoline] 100 mg PO TID tab 11/17/20 [Rx] Follow up Appointment(s)/Referral(s): Rayo Arroyo MD [Primary Care Provider] - 1 Week Discharge Disposition: OTHER INSTITUTION NOT DEFINED
--- NOTE | 2020-11-17 11:51 | P.PN ---
Subjective Progress Note Date: 11/17/20 Principal diagnosis: Acute hypoxemic respiratory failure secondary COVID-19 pneumonia, DKA The patient is seen today 11/15/2020 in follow-up on the regular medical floor. She is currently sitting up in bed. Awake and alert in no acute distress. She has been de cannulated on 11/14/2020. Dressing over the tracheostomy site dry and intact. She is maintaining good O2 saturations in the upper 90s on 3 L/m per nasal cannula. Speaking well. Swallowing well. Appetite remains poor. Continued on PEG tube feedings. She's afebrile. Hemodynamically stable. White count 11.0. Hemoglobin 7.7. Platelets 237. Sodium 129. Potassium 3.6. Creatinine 2.74. Glucose 168. She remains on Lovenox for DVT prophylaxis. The patient is seen today 11/16/2020 in follow-up on the regular medical floor. She is sitting up at the bedside. Awake and alert in no acute distress. She is doing very well. She is getting stronger every day. She is maintaining O2 saturations in the low 90s on 5 L high flow nasal cannula. Dressing over tracheostomy site is clean and dry. Blood glucose 148. She remains on Lovenox for DVT prophylaxis. The patient's urine output is improving. Creatinine improving. Nephrology to decide if hemodialysis is needed tomorrow. Her insurance authorization is currently pending for the [facility] versus [facility] with HD planned for Friday if to be continued. Encouraged to increase oral intake. The patient is seen today 11/17/2020 in follow-up on the regular medical floor. She is awake and alert in no acute distress. Resting quite comfortably in bed. Denies any worsening shortness of breath, cough or congestion. No fever or chills. Maintain O2 saturations in the 90s on 4 L/m per nasal cannula. White count 14.8. Hemoglobin 7.5. Sodium 131. Potassium 3.4. Creatinine 2.4. She continues to make urine. Plan is for transfer to [facility] today. Objective - Vital Signs Vital signs: Vital Signs Temp 97.6 F 11/17/20 02:00 Pulse 105 H 11/17/20 02:00 Resp 20 11/17/20 08:40 BP 137/85 11/17/20 02:00 Pulse Ox 92 L 11/17/20 08:18 Intake & Output 11/16/20 11/17/20 11/17/20 18:59 06:59 18:59 Intake Total 740 8 Output Total 1100 1250 Balance -360 778 Intake: Oral 740 1960 Tube Feeding 68 Output: Urine 150 Stool 1100 1100 Other: Voiding Method Bedside Commode Bedside Commode Bedside Commode Bedpan Bedpan Bedpan # Voids 1 1 # Bowel Movements 1 ABP, PAP, CO, CI - Last Documented Arterial Blood Pressure 136/76 - Exam GENERAL EXAM: Awake, very pleasant 35-year-old female patient, de-cannulated, speaking well. On 4 L nasal cannula. HEAD: Normocephalic/atraumatic. EYES: Normal reaction of pupils, equal size. Conjunctiva pink, sclera white. NOSE: Clear with pink turbinates. THROAT: No erythema or exudates. NECK: No masses, no JVD, no thyroid enlargement, no adenopathy. Dressing over previous tracheostomy site dry and intact. CHEST: No chest wall deformity. Symmetrical expansion. Patient has right upper chest permacath hemodialysis catheter in place LUNGS: Equal air entry with bilateral crackles CVS: Regular rate and rhythm, normal S1 and S2, no gallops, no murmurs, no rubs ABDOMEN: Soft, nontender. No hepatosplenomegaly, normal bowel sounds, no guarding or rigidity. Peg tube in place, and is receiving tube feedings supplementation EXTREMITIES: No clubbing, no edema edema involving upper and lower extremities noted no cyanosis, 2+ pulses and upper and lower extremities. MUSCULOSKELETAL: Muscle strength and tone normal. SPINE: No scoliosis or deformity SKIN: No rashes CENTRAL NERVOUS SYSTEM: Awake and alert, oriented 3, responding appropriately, moving all 4 extremities - Labs CBC & Chem 7: 11/17/20 05:35 11/17/20 05:35 Labs: Abnormal Lab Results - Last 24 Hours (Table) 11/16/20 11/16/20 11/17/20 Range/Units 16:25 20:18 05:35 WBC 14.81 H (4.50-10.00) X 10*3/uL RBC 2.80 L (4.10-5.20) X 10*6/uL Hgb 7.5 L (12.0-15.0) g/dL Hct 25.8 L (37.2-46.3) % MCH 26.8 L (27.0-32.0) pg MCHC 29.1 L (32.0-37.0) g/dL RDW 16.7 H (11.5-14.5) % Sodium (135-145) mmol/L Potassium (3.5-5.5) mmol/L Chloride (96-109) mmol/L BUN (9.0-27.0) mg/dL Creatinine (0.6-1.5) mg/dL Est GFR (CKD-EPI)AfAm (60.0-200.0) Est GFR (CKD-EPI)NonAf (60.0-200.0) Glucose (70-110) mg/dL POC Glucose (mg/dL) 133 H 189 H (75-99) mg/dL Total Bilirubin (0.2-1.2) mg/dL Total Protein (6.2-8.2) g/dL Albumin (3.80-4.90) g/dL Albumin/Globulin Ratio (1.60-3.17) g/dL 11/17/20 11/17/20 Range/Units 05:35 06:52 WBC (4.50-10.00) X 10*3/uL RBC (4.10-5.20) X 10*6/uL Hgb (12.0-15.0) g/dL Hct (37.2-46.3) % MCH (27.0-32.0) pg MCHC (32.0-37.0) g/dL RDW (11.5-14.5) % Sodium 131 L (135-145) mmol/L Potassium 3.4 L (3.5-5.5) mmol/L Chloride 89 L (96-109) mmol/L BUN 29.0 H (9.0-27.0) mg/dL Creatinine 2.4 H (0.6-1.5) mg/dL Est GFR (CKD-EPI)AfAm 29.1 L (60.0-200.0) Est GFR (CKD-EPI)NonAf 25.1 L (60.0-200.0) Glucose 193 H (70-110) mg/dL POC Glucose (mg/dL) 214 H (75-99) mg/dL Total Bilirubin 0.1 L (0.2-1.2) mg/dL Total Protein 5.5 L (6.2-8.2) g/dL Albumin 3.10 L (3.80-4.90) g/dL Albumin/Globulin Ratio 1.29 L (1.60-3.17) g/dL Assessment and Plan Assessment: 1 Acute hypoxic respiratory failure secondary to COVID-19 pneumonia/ARDS, transferred to the intensive care unit on 09/11/2020 and intubated and placed on mechanical ventilator on 09/11/2020. Patient received 1 dose of Remdesivir on 09/11/2020, however based on her quick progression of her hypoxic respiratory failure she received Tocilizumab 800 mg on 09/11/2020. Tracheostomy and PEG tube placed on 09/18/2020. Patient was successfully weaned from the ventilator support, she status post tracheostomy and PEG tube insertion, subsequent deca nnulation on 11/14/2020. Speaking well. PEG tube remains in place. 2 Acinetobacter baumannii infection of the trach site. Completed a course of cefepime 3 Acute kidney injury related to ATN, nephrology has been consulted, ultrasound of the kidneys showed no evidence of hydronephrosis. Patient was initiated on hemodialysis on 09/14/2020. Permacath placed 09/20/2020. Patient is undergoing daily dialysis. 4 Diabetes mellitus, insulin-dependent and the patient is currently on insulin sliding scale coverage with NovoLog 5 Obesity with a BMI is down to 50 6 Hypotension, recovered and the patient is currently on no pressors 7 Corneal injury, punctate keratitis, left eye, improved 8 Anemia of chronic disease, requiring transfusions of packed red blood cells, hemoglobin is 7.7 9 Generalized anxiety disorder. 10 Hyponatremia, current sodium 129 11 Leukocytosis, resolved 13 Encephalopathy/delirium , improved and resolved 14 History of hypertension Plan: The patient was seen and evaluated by Dr. Donis Leon from the pulmonary standpoint, on 4 L She is tolerating a soft diet with PEG tube feedings Awaiting inpatient rehabilitation transfer to [facility] today I, the cosigning physician, performed a history & physical examination of the patient. Lungs sounds with bilateral crackles, diminished. Maintaining good O2 saturations in the 90s on 4 L/m per nasal cannula. I discussed the assessment and plan of care with my nurse practitioner, Kyara Concepcion. I attest to the above note as dictated by her.
--- NOTE | 2021-01-26 14:33 | CDI ---
There is documentation of a trach ulcer. Additional clarification is requested. History/Risk Factors: Pt has a h/o DM type 2. Pt presented with Covid, developed respiratory failure and had a trach inserted. Pt also had severe protein-calorie malnutrition. Per the record the pt developed an Acinetobacter baumannii infection at the trach site. Clinical Indicators: stem shaper noted on 10/26 - "nonhealing ulcerations to the trach site, multiple open ulcerations to the trach site including one that is communicating to the track, granulation throughout the wound bed w/ min slough, periwound shows excoriation and maceration" Wound care also noted DM with a skin ulcer. IM PN on 10/28 noted a stage II pressure ulcer at the trach site and IM PN on 10/31 noted a stage IV pressure ulcer at the trach site. Can you please clarify the trach site ulcer? [ ] Non-pressure ulcer secondary to DM [ ] Non-pressure ulcer secondary to other etiology (please clarify) [ ] Stage IV pressure ulcer [ ] Other, please specify [ ] Unable to determine (Template Last Revised: July 2020) Stage 4 pressure ulcer at trach site and stage 2 pressure ulcer at coccyx which are already mentioned in all the progress note and d/c summary MTDD
== END 2020-11-17 11:32 | DRG 4 ==
LOC: EC 12:41 → 3SCARD 15:27 → 2SICU 09-11 13:31 → 4SSUR 11-15 05:59
PROVIDERS: ADMIT Internal Medicine; ATTEND Internal Medicine
PROC: 5A1D70Z Performance of Urinary Filtration, Intermittent, Less than 6 Hours Per Day (ICD-10-PCS; 2020-09-10)
PROC: 8E0ZXY6 Isolation (ICD-10-PCS; 2020-09-10)
PROC: 5A1955Z Respiratory Ventilation, Greater than 96 Consecutive Hours (ICD-10-PCS; 2020-09-11)
PROC: 06HM33Z Insertion of Infusion Device into Right Femoral Vein, Percutaneous Approach (ICD-10-PCS; 2020-09-11)
PROC: 03HY32Z Insertion of Monitoring Device into Upper Artery, Percutaneous Approach (ICD-10-PCS; 2020-09-11)
PROC: 4A133B1 Monitoring of Arterial Pressure, Peripheral, Percutaneous Approach (ICD-10-PCS; 2020-09-11)
PROC: 4A133J1 Monitoring of Arterial Pulse, Peripheral, Percutaneous Approach (ICD-10-PCS; 2020-09-11)
PROC: 5A09357 Assistance with Respiratory Ventilation, Less than 24 Consecutive Hours, Continuous Positive Airway Pressure (ICD-10-PCS; 2020-09-11)
PROC: 0BH17EZ Insertion of Endotracheal Airway into Trachea, Via Natural or Artificial Opening (ICD-10-PCS; 2020-09-11)
PROC: 05HM33Z Insertion of Infusion Device into Right Internal Jugular Vein, Percutaneous Approach (ICD-10-PCS; 2020-09-14)
PROC: B543ZZA Ultrasonography of Right Jugular Veins, Guidance (ICD-10-PCS; 2020-09-14)
PROC: 0DH63UZ Insertion of Feeding Device into Stomach, Percutaneous Approach (ICD-10-PCS; 2020-09-18)
PROC: 3E0G76Z Introduction of Nutritional Substance into Upper GI, Via Natural or Artificial Opening (ICD-10-PCS; 2020-09-18)
PROC: 0B110F4 Bypass Trachea to Cutaneous with Tracheostomy Device, Open Approach (ICD-10-PCS; principal; 2020-09-18 12:00)
PROC: 05PYX3Z Removal of Infusion Device from Upper Vein, External Approach (ICD-10-PCS; 2020-09-20)
PROC: 05HM33Z Insertion of Infusion Device into Right Internal Jugular Vein, Percutaneous Approach (ICD-10-PCS; 2020-09-20)
PROC: 05HB33Z Insertion of Infusion Device into Right Basilic Vein, Percutaneous Approach (ICD-10-PCS; 2020-09-25)
PROC: 3E0333Z Introduction of Anti-inflammatory into Peripheral Vein, Percutaneous Approach (ICD-10-PCS; 2020-09-26)
PROC: 3E033XZ Introduction of Vasopressor into Peripheral Vein, Percutaneous Approach (ICD-10-PCS; 2020-09-28)
PROC: 30233N1 Transfusion of Nonautologous Red Blood Cells into Peripheral Vein, Percutaneous Approach (ICD-10-PCS; 2020-10-04)
PROC: 03HY32Z Insertion of Monitoring Device into Upper Artery, Percutaneous Approach (ICD-10-PCS; 2020-10-05)
PROC: 4A133B1 Monitoring of Arterial Pressure, Peripheral, Percutaneous Approach (ICD-10-PCS; 2020-10-05)
PROC: 4A133J1 Monitoring of Arterial Pulse, Peripheral, Percutaneous Approach (ICD-10-PCS; 2020-10-05)
DX: A41.89 Other specified sepsis (principal); L89.894 Pressure ulcer of other site, stage 4; E11.10 Type 2 diabetes mellitus with ketoacidosis without coma; U07.1 COVID-19; J12.82 Pneumonia due to coronavirus disease 2019; N17.0 Acute kidney failure with tubular necrosis; J80 Acute respiratory distress syndrome; R65.21 Severe sepsis with septic shock; G93.41 Metabolic encephalopathy; E43 Unspecified severe protein-calorie malnutrition; J15.8 Pneumonia due to other specified bacteria; N18.6 End stage renal disease; E87.4 Mixed disorder of acid-base balance; Z68.42 Body mass index [BMI] 45.0-49.9, adult; I47.2 Ventricular tachycardia; E87.1 Hypo-osmolality and hyponatremia; G62.81 Critical illness polyneuropathy; J95.02 Infection of tracheostomy stoma; G72.81 Critical illness myopathy; I13.2 Hypertensive heart and chronic kidney disease with heart failure and with stage 5 chronic kidney disease, or end stage renal disease; Z99.11 Dependence on respirator [ventilator] status; Z20.822 Contact with and (suspected) exposure to COVID-19; Z79.84 Long term (current) use of oral hypoglycemic drugs; F41.1 Generalized anxiety disorder; E83.39 Other disorders of phosphorus metabolism; E87.5 Hyperkalemia; E66.01 Morbid (severe) obesity due to excess calories; E83.51 Hypocalcemia; E86.1 Hypovolemia; E87.6 Hypokalemia; I95.3 Hypotension of hemodialysis; D63.1 Anemia in chronic kidney disease; E78.1 Pure hyperglyceridemia; E83.52 Hypercalcemia; L89.152 Pressure ulcer of sacral region, stage 2; F43.21 Adjustment disorder with depressed mood; K59.00 Constipation, unspecified; H16.142 Punctate keratitis, left eye; E11.622 Type 2 diabetes mellitus with other skin ulcer; E11.22 Type 2 diabetes mellitus with diabetic chronic kidney disease; D50.9 Iron deficiency anemia, unspecified; I50.9 Heart failure, unspecified; I27.20 Pulmonary hypertension, unspecified; Z78.1 Physical restraint status; Z78.9 Other specified health status; Z79.52 Long term (current) use of systemic steroids; Z79.01 Long term (current) use of anticoagulants; Z79.51 Long term (current) use of inhaled steroids; Z99.2 Dependence on renal dialysis; Z79.899 Other long term (current) drug therapy; J40 Bronchitis, not specified as acute or chronic
CPT/HCPCS: 36410; 36415; 36558; 36573; 36600; 43246; 71045; 71046; 74230; 76770; 76937; 77001; 80048; 80051; 80053; 80202; 81001; 82009; 82164; 82306; 82330; 82550; 82553; 82565; 82652; 82728; 82805; 82947; 83036; 83540; 83550; 83605; 83615; 83721; 83735; 83880; 83970; 84100; 84132; 84145; 84165; 84443; 84478; 84484; 84520; 85025; 85027; 85379; 85610; 85730; 86140; 86334; 86704; 86706; 86707; 86850; 86900; 86901; 86920; 87040; 87070; 87075; 87077; 87086; 87186; 87205; 87324; 87340; 87635; 90935; 93005; 93306; 93970; 94002; 94003; 94640; 94660; 94667; 94760; 96360; 99291

== ENCOUNTER → 2021-05-02 | Outpatient (CLI) | payer OTHER ==
--- NOTE | 2021-05-03 03:03 | MR ---
EXAMINATION TYPE: MR ankle LT wo con DATE OF EXAM: 05/02/2021 COMPARISON: None HISTORY: Lt foot and ankle pain x2 months Multiplanar multiecho imaging of the left ankle without contrast. Ankle mortise is anatomic. The collateral ligaments are intact. Talus is intact. The Achilles tendon is intact. Plantar fascia appears normal. The medial and lateral flexor tendons appear intact. The whitehead btalar joint is intact There is a large mixed signal lesion involving the distal tibial metaphysis that measures 5.5 x 2.3 c m. This appears to have some sclerotic margins laterally. This could be the sequela of an old healed fracture. Correlation with a plain x-ray is recommended. There is no evidence of any significant ankle joint effusion. IMPRESSION: No evidence of ligament or tendon tear. Deformity of the distal tibia could relate to an old fracture . Recommend comparison with the plain x-ray. No acute fracture seen.
== END | disposition home or self-care (01) ==
LOC: RADMRIMAIN 14:56
PROVIDERS: ATTEND Student in an Organized Health Care Education/Training Program
DX: M25.572 Pain in left ankle and joints of left foot (principal); M79.672 Pain in left foot

== ENCOUNTER 2022-02-06 08:49 | Emergency (ER) | payer OTHER ==
[2022-02-06 09:36] VITALS: RESP 16; TEMP 98
[2022-02-06 09:37] LABS: Glucose,Whole Blood 516 mg/dL (70-110)
[2022-02-06] MEDS ORDERED: SODIUM CHLORIDE 0.9% 2,000 ML IV ONE (10:37)
[2022-02-06] MEDS ORDERED: INSULIN REGULAR 100 UNIT/ML VIAL (IV) IV ONE ×2 (10:37→12:44)
[2022-02-06 11:07] LABS: Glucose,Whole Blood 494 mg/dL (70-110)
[2022-02-06 11:19] LABS: Basophils % (A) 0 %; Eosinophils # (A) 0.1 k/uL (0-0.7); Eosinophils % (A) 1 %; HCT 39.6 % (34.0-46.0); HGB 12.6 gm/dL (11.4-16.0); Hypochromasia Moderate; Lymphocytes # (A) 2.1 k/uL (1.0-4.8); Lymphocytes % (A) 22 %; MCH 28.6 pg (25.0-35.0); MCHC 31.8 g/dL (31.0-37.0); MCV 89.9 fL (80.0-100.0); Mean Platelet Volume 10.1; Monocytes # (A) 0.3 k/uL (0-1.0); Monocytes % (A) 4 %; Neutrophils # (A) 6.7 k/uL (1.3-7.7); Neutrophils % (A) 71 %; Platelet Count 237 k/uL (150-450); RDW 13.7 % (11.5-15.5); WBC 9.5 k/uL (3.8-10.6)
[2022-02-06 11:26] LABS: Appearance,Urine Cloudy (Clear); Bacteria,Urine Occasional /hpf; Bilirubin,Urine Negative (Negative); Blood,Urine Trace (Negative); Color,Urine Colorless; Glucose,Urine (UA) 4+ (Negative); Ketones,Urine Negative (Negative); Leukocyte Esterase,Urine Large (Negative); Nitrite,Urine Negative (Negative); Protein,Urine 1+ (Negative); RBC,Urine 5 /hpf (0-5); Specific Gravity,Urine 1.021 (1.001-1.035); Squamous Epithelial Cell,Urine 2 /hpf (0-4); Urobilinogen,Urine <2.0 mg/dL (<2.0); WBC,Urine >182 /hpf (0-5)
[2022-02-06 11:30] LABS: ALT 20 U/L (4-34); AST 27 U/L (14-36); African American GFR (CKD) 55 (>60 ml/min/1.73 sqM); Albumin 4.4 g/dL (3.5-5.0); Alkaline Phosphatase 102 U/L (38-126); Anion Gap 15 mmol/L; Blood Urea Nitrogen 22 mg/dL (7-17); Calcium 9.9 mg/dL (8.4-10.2); Carbon Dioxide 22 mmol/L (22-30); Chloride 96 mmol/L (98-107); Magnesium 1.6 mg/dL (1.6-2.3); Non-African American GFR(CKD) 48 (>60 ml/min/1.73 sqM); Potassium 4.8 mmol/L (3.5-5.1); Sodium 133 mmol/L (137-145); Total Bilirubin 0.4 mg/dL (0.2-1.3); Total Protein 7.6 g/dL (6.3-8.2)
[2022-02-06 11:44] LABS: Glucose 535 mg/dL (74-99)
[2022-02-06 12:35] LABS: Glucose,Whole Blood 361 mg/dL (70-110)
--- NOTE | 2022-02-06 12:50 | ED ---
General Adult HPI - General Chief complaint: Recheck/Abnormal Lab/Rx Stated complaint: High BP Time Seen by Provider: 02/06/22 09:51 Source: patient, RN notes reviewed Mode of arrival: ambulatory Limitations: no limitations - History of Present Illness Initial comments: 36-year-old female presents emergency Department chief complaint of hyperglycemia. Patient states she is up from it for a while but recently started with a limp 500 mg once daily. Patient states that she has nausea but sugar has been increasing last several days. Patiently states she went to urgent care and was told her blood sugar was very high. Patient denies any chest pain she states is very thirsty, increased urination along with some dysuria. Patient denies any chest pain shortness breath no headache no dizziness. - Related Data Home Medications Medication Instructions Recorded Confirmed Losartan Potassium [Cozaar] 12.5 mg PO HS 02/06/22 02/06/22 metFORMIN HCL 500 mg PO HS 02/06/22 02/06/22 Previous Rx's Medication Instructions Recorded Metoprolol Tartrate [Lopressor] 50 mg PO BID tab 11/07/20 Cephalexin [Keflex] 500 mg PO Q8HR #21 cap 02/06/22 Fluconazole [Diflucan] 150 mg PO ONCE #2 tab 02/06/22 glipiZIDE 5 mg PO BID #30 tab 02/06/22 Allergies Allergy/AdvReac Type Severity Reaction Status Date / Time No Known Allergies Allergy Verified 02/06/22 11:12 Review of Systems ROS Statement: Those systems with pertinent positive or pertinent negative responses have been documented in the HPI. ROS Other: All systems not noted in ROS Statement are negative. Past Medical History Past Medical History: Diabetes Mellitus History of Any Multi-Drug Resistant Organisms: None Reported Past Surgical History: Section, Tubal Ligation Past Psychological History: No Psychological Hx Reported Smoking Status: Never smoker Past Alcohol Use History: Occasional Past Drug Use History: None Reported General Exam Limitations: no limitations General appearance: alert, in no apparent distress Head exam: Present: atraumatic, normocephalic, normal inspection Eye exam: Present: normal appearance, PERRL, EOMI. Absent: scleral icterus, conjunctival injection, periorbital swelling ENT exam: Present: normal exam, normal oropharynx, mucous membranes moist Neck exam: Present: normal inspection, full ROM. Absent: tenderness, me ningismus, lymphadenopathy Respiratory exam: Present: normal lung sounds bilaterally. Absent: respiratory distress, wheezes, rales, rhonchi, stridor Cardiovascular Exam: Present: regular rate, normal rhythm, normal heart sounds. Absent: systolic murmur, diastolic murmur, rubs, gallop, clicks GI/Abdominal exam: Present: soft, normal bowel sounds. Absent: distended, tenderness, guarding, rebound, rigid Course Vital Signs 02/06/22 09:33 Temperature 98 F Pulse Rate 83 Respiratory 16 Rate Blood Pressure 125/84 O2 Sat by Pulse 98 Oximetry Medical Decision Making - Medical Decision Making 36-year-old presented for hyperglycemia patient was given fluid bolus, patient has evidence urinary tract infection was given dose IV antibiotics. Patient discharged and oral antibiotics, glipizide patient has some chronic kidney disease and is concerning with increasing metformin. - Lab Data Result diagrams: 02/06/22 11:00 02/06/22 11:00 Lab Results 02/06/22 02/06/22 02/06/22 Range/Units 09:36 10:59 11:00 WBC 9.5 (3.8-10.6) k/uL RBC 4.40 (3.80-5.40) m/uL Hgb 12.6 (11.4-16.0) gm/dL Hct 39.6 (34.0-46.0) % MCV 89.9 (80.0-100.0) fL MCH 28.6 (25.0-35.0) pg MCHC 31.8 (31.0-37.0) g/dL RDW 13.7 (11.5-15.5) % Plt Count 237 (150-450) k/uL MPV 10.1 Neutrophils % 71 % Lymphocytes % 22 % Monocytes % 4 % Eosinophils % 1 % Basophils % 0 % Neutrophils # 6.7 (1.3-7.7) k/uL Lymphocytes # 2.1 (1.0-4.8) k/uL Monocytes # 0.3 (0-1.0) k/uL Eosinophils # 0.1 (0-0.7) k/uL Basophils # 0.0 (0-0.2) k/uL Hypochromasia Moderate Sodium (137-145) mmol/L Potassium (3.5-5.1) mmol/L Chloride (98-107) mmol/L Carbon Dioxide (22-30) mmol/L Anion Gap mmol/L BUN (7-17) mg/dL Creatinine (0.52-1.04) mg/dL Est GFR (CKD-EPI)AfAm (>60 ml/min/1.73 sqM) Est GFR (CKD-EPI)NonAf (>60 ml/min/1.73 sqM) Glucose (74-99) mg/dL POC Glucose (mg/dL) 516 H 494 H (70-110) mg/dL POC Glu Biological Science Aide Serafin Girard Cady Plasma Lactic Acid Shawn (0.7-2.0) mmol/L Calcium (8.4-10.2) mg/dL Magnesium (1.6-2.3) mg/dL Total Bilirubin (0.2-1.3) mg/dL AST (14-36) U/L ALT (4-34) U/L Alkaline Phosphatase (38-126) U/L Total Protein (6.3-8.2) g/dL Albumin (3.5-5.0) g/dL Urine Color Urine Appearance (Clear) Urine pH (5.0-8.0) Ur Specific Rincon (1.001-1.035) Urine Protein (Negative) Urine Glucose (UA) (Negative) Urine Ketones (Negative) Urine Blood (Negative) Urine Nitrite (Negative) Urine Bilirubin (Negative) Urine Urobilinogen (<2.0) mg/dL Ur Leukocyte Esterase (Negative) Urine RBC (0-5) /hpf Urine WBC (0-5) /hpf Urine WBC Clumps (None) /hpf Ur Squamous Epith Cells (0-4) /hpf Urine Bacteria (None) /hpf Acetone, Qual (Negative) 02/06/22 02/06/22 02/06/22 Range/Units 11:00 11:00 11:00 WBC (3.8-10.6) k/uL RBC (3.80-5.40) m/uL Hgb (11.4-16.0) gm/dL Hct (34.0-46.0) % MCV (80.0-100.0) fL MCH (25.0-35.0) pg MCHC (31.0-37.0) g/dL RDW (11.5-15.5) % Plt Count (150-450) k/uL MPV Neutrophils % % Lymphocytes % % Monocytes % % Eosinophils % % Basophils % % Neutrophils # (1.3-7.7) k/uL Lymphocytes # (1.0-4.8) k/uL Monocytes # (0-1.0) k/uL Eosinophils # (0-0.7) k/uL Basophils # (0-0.2) k/uL Hypochromasia Sodium 133 L (137-145) mmol/L Potassium 4.8 (3.5-5.1) mmol/L Chloride 96 L (98-107) mmol/L Carbon Dioxide 22 (22-30) mmol/L Anion Gap 15 mmol/L BUN 22 H (7-17) mg/dL Creatinine 1.40 H (0.52-1.04) mg/dL Est GFR (CKD-EPI)AfAm 55 (>60 ml/min/1.73 sqM) Est GFR (CKD-EPI)NonAf 48 (>60 ml/min/1.73 sqM) Glucose 535 H* (74-99) mg/dL POC Glucose (mg/dL) (70-110) mg/dL POC Glu Biological Science Aide ID Plasma Lactic Acid Shawn 1.8 (0.7-2.0) mmol/L Calcium 9.9 (8.4-10.2) mg/dL Magnesium 1.6 (1.6-2.3) mg/dL Total Bilirubin 0.4 (0.2-1.3) mg/dL AST 27 (14-36) U/L ALT 20 (4-34) U/L Alkaline Phosphatase 102 (38-126) U/L Total Protein 7.6 (6.3-8.2) g/dL Albumin 4.4 (3.5-5.0) g/dL Urine Color Colorless Urine Appearance Cloudy H (Clear) Urine pH 6.0 (5.0-8.0) Ur Specific Rincon 1.021 (1.001-1.035) Urine Protein 1+ H (Negative) Urine Glucose (UA) 4+ H (Negative) Urine Ketones Negative (Negative) Urine Blood Trace H (Negative) Urine Nitrite Negative (Negative) Urine Bilirubin Negative (Negative) Urine Urobilinogen <2.0 (<2.0) mg/dL Ur Leukocyte Esterase Large H (Negative) Urine RBC 5 (0-5) /hpf Urine WBC >182 H (0-5) /hpf Urine WBC Clumps Few H (None) /hpf Ur Squamous Epith Cells 2 (0-4) /hpf Urine Bacteria Occasional H (None) /hpf Acetone, Qual Negative (Negative) 02/06/22 Range/Units 12:32 WBC (3.8-10.6) k/uL RBC (3.80-5.40) m/uL Hgb (11.4-16.0) gm/dL Hct (34.0-46.0) % MCV (80.0-100.0) fL MCH (25.0-35.0) pg MCHC (31.0-37.0) g/dL RDW (11.5-15.5) % Plt Count (150-450) k/uL MPV Neutrophils % % Lymphocytes % % Monocytes % % Eosinophils % % Basophils % % Neutrophils # (1.3-7.7) k/uL Lymphocytes # (1.0-4.8) k/uL Monocytes # (0-1.0) k/uL Eosinophils # (0-0.7) k/uL Basophils # (0-0.2) k/uL Hypochromasia Sodium (137-145) mmol/L Potassium (3.5-5.1) mmol/L Chloride (98-107) mmol/L Carbon Dioxide (22-30) mmol/L Anion Gap mmol/L BUN (7-17) mg/dL Creatinine (0.52-1.04) mg/dL Est GFR (CKD-EPI)AfAm (>60 ml/min/1.73 sqM) Est GFR (CKD-EPI)NonAf (>60 ml/min/1.73 sqM) Glucose (74-99) mg/dL POC Glucose (mg/dL) 361 H (70-110) mg/dL POC Glu Biological Science Aide ID Jorgito, Shanon Plasma Lactic Acid Shawn (0.7-2.0) mmol/L Calcium (8.4-10.2) mg/dL Magnesium (1.6-2.3) mg/dL Total Bilirubin (0.2-1.3) mg/dL AST (14-36) U/L ALT (4-34) U/L Alkaline Phosphatase (38-126) U/L Total Protein (6.3-8.2) g/dL Albumin (3.5-5.0) g/dL Urine Color Urine Appearance (Clear) Urine pH (5.0-8.0) Ur Specific Rincon (1.001-1.035) Urine Protein (Negative) Urine Glucose (UA) (Negative) Urine Ketones (Negative) Urine Blood (Negative) Urine Nitrite (Negative) Urine Bilirubin (Negative) Urine Urobilinogen (<2.0) mg/dL Ur Leukocyte Esterase (Negative) Urine RBC (0-5) /hpf Urine WBC (0-5) /hpf Urine WBC Clumps (None) /hpf Ur Squamous Epith Cells (0-4) /hpf Urine Bacteria (None) /hpf Acetone, Qual (Negative) Disposition Clinical Impression: Hyperglycemia due to type 2 diabetes mellitus, UTI (urinary tract infection) Disposition: HOME SELF-CARE Condition: Stable Instructions (If sedation given, give patient instructions): Urinary Tract Infection in Women (ED) Additional Instructions: Please return to the Emergency Department if symptoms worsen or any other concerns. Prescriptions: Fluconazole [Diflucan] 150 mg PO ONCE #2 tab glipiZIDE 5 mg PO BID #30 tab Cephalexin [Keflex] 500 mg PO Q8HR #21 cap Is patient prescribed a controlled substance at d/c from ED?: No Referrals: Daylin Mackay [Primary Care Provider] - 1-2 days Time of Disposition: 12:50
[2022-02-06 14:01] VITALS: BP 130/80; PULSE 66
== END 2022-02-06 14:02 | disposition home or self-care (01) ==
LOC: EC 08:49
DX: E11.65 Type 2 diabetes mellitus with hyperglycemia (principal); N39.0 Urinary tract infection, site not specified; E11.22 Type 2 diabetes mellitus with diabetic chronic kidney disease; N18.9 Chronic kidney disease, unspecified; Z79.84 Long term (current) use of oral hypoglycemic drugs
CPT/HCPCS: 36415; 80053; 82009; 83605; 83735; 85025; 81001; 87086; 99284; 96365; 96366; 96375; 96376; 96361; J0696

== ENCOUNTER 2022-02-26 22:07 | Emergency (ER) | payer OTHER ==
[2022-02-26 22:58] VITALS: TEMP 98.3
[2022-02-26 22:59] LABS: Glucose,Whole Blood 245 mg/dL (70-110)
[2022-02-27 01:10] LABS: Glucose,Whole Blood 182 mg/dL (70-110)
[2022-02-27] MEDS ORDERED: SODIUM CHLORIDE 0.9% 1,000 ML IV ONE (01:17)
[2022-02-27 01:50] LABS: Basophils # (A) 0.1 k/uL (0-0.2); Basophils % (A) 1 %; Eosinophils # (A) 0.3 k/uL (0-0.7); Eosinophils % (A) 2 %; HCT 37.3 % (34.0-46.0); HGB 12.3 gm/dL (11.4-16.0); Hypochromasia Slight; Lymphocytes # (A) 3.2 k/uL (1.0-4.8); Lymphocytes % (A) 28 %; MCH 29.2 pg (25.0-35.0); MCHC 33.1 g/dL (31.0-37.0); MCV 88.3 fL (80.0-100.0); Mean Platelet Volume 9.7; Monocytes # (A) 0.5 k/uL (0-1.0); Monocytes % (A) 4 %; Neutrophils # (A) 7.4 k/uL (1.3-7.7); Neutrophils % (A) 64 %; Platelet Count 218 k/uL (150-450); RBC 4.23 m/uL (3.80-5.40); RDW 13.9 % (11.5-15.5); WBC 11.5 k/uL (3.8-10.6)
[2022-02-27 02:01] LABS: ALT 23 U/L (4-34); AST 29 U/L (14-36); African American GFR (CKD) 62 (>60 ml/min/1.73 sqM); Alkaline Phosphatase 82 U/L (38-126); Anion Gap 12 mmol/L; Blood Urea Nitrogen 18 mg/dL (7-17); Calcium 9.9 mg/dL (8.4-10.2); Carbon Dioxide 23 mmol/L (22-30); Chloride 101 mmol/L (98-107); Glucose 189 mg/dL (74-99); Magnesium 1.7 mg/dL (1.6-2.3); Non-African American GFR(CKD) 54 (>60 ml/min/1.73 sqM); Potassium 4.7 mmol/L (3.5-5.1); Sodium 136 mmol/L (137-145); Total Bilirubin 0.2 mg/dL (0.2-1.3); Total Protein 6.9 g/dL (6.3-8.2)
[2022-02-27 02:30] LABS: Amorphous Sediment,Urine Rare /hpf; Appearance,Urine Cloudy (Clear); Bacteria,Urine Rare /hpf; Bilirubin,Urine Negative (Negative); Blood,Urine Negative (Negative); Budding Yeast,Urine Rare /hpf; Color,Urine Light Yellow; Glucose,Urine (UA) Negative (Negative); Ketones,Urine Negative (Negative); Leukocyte Esterase,Urine Large (Negative); Mucus,Urine Rare /hpf; Nitrite,Urine Negative (Negative); Protein,Urine 2+ (Negative); RBC,Urine 1 /hpf (0-5); Specific Gravity,Urine 1.017 (1.001-1.035); Squamous Epithelial Cell,Urine 5 /hpf (0-4); Urobilinogen,Urine <2.0 mg/dL (<2.0); WBC,Urine 11 /hpf (0-5)
[2022-02-27] MEDS ORDERED: FLUCONAZOLE 150 MG TAB PO STA (03:08)
[2022-02-27 03:18] LABS: Glucose,Whole Blood 148 mg/dL (70-110)
--- NOTE | 2022-02-27 03:37 | ED ---
General Adult HPI - General Chief complaint: Recheck/Abnormal Lab/Rx Stated complaint: Hyperglycemia Time Seen by Provider: 02/27/22 01:15 Source: patient Mode of arrival: ambulatory Limitations: no limitations - History of Present Illness Initial comments: 36 year old female with past medical history of diabetes presents emergency department with elevated blood sugars. States that she takes glipizide and metformin daily. Patient was also recently placed on Trulicity he however has not started the medications as she did not receive any education in performing injections. She does have an appointment on Friday for this training. She is concerned as her sugars have still remained high. Also reports that she was treated for urinary tract infection and continues to have some vaginal discomfort. No discharge. No vaginal bleeding. No concern for . No other alleviating, precipitating or offering factors - Related Data Home Medications Medication Instructions Recorded Confirmed Losartan Potassium [Cozaar] 12.5 mg PO HS 02/06/22 02/06/22 metFORMIN HCL 500 mg PO HS 02/06/22 02/06/22 Previous Rx's Medication Instructions Recorded Metoprolol Tartrate [Lopressor] 50 mg PO BID tab 11/07/20 Cephalexin [Keflex] 500 mg PO Q8HR #21 cap 02/06/22 Fluconazole [Diflucan] 150 mg PO ONCE #2 tab 02/06/22 glipiZIDE 5 mg PO BID #30 tab 02/06/22 Fluconazole [Diflucan] 150 mg PO ONCE #1 tab 02/27/22 Allergies Allergy/AdvReac Type Severity Reaction Status Date / Time No Known Allergies Allergy Verified 02/26/22 22:54 Review of Systems ROS Statement: Those systems with pertinent positive or pertinent negative responses have been documented in the HPI. ROS Other: All systems not noted in ROS Statement are negative. Past Medical History Past Medical History: Diabetes Mellitus History of Any Multi-Drug Resistant Organisms: None Reported Past Surgical History: Section, Tubal Ligation Past Psychological History: No Psychological Hx Reported Smoking Status: Never smoker Past Alcohol Use History: Occasional Past Drug Use History: None Reported General Exam Limitations: no limitations General appearance: alert, in no apparent distress Head exam: Present: atraumatic, normocephalic, normal inspection Eye exam: Present: normal appearance, PERRL, EOMI. Absent: scleral icterus, conjunctival injection, periorbital swelling ENT exam: Present: normal exam, mucous membranes moist Neck exam: Present: normal inspection. Absent: tenderness, meningismus, lymphadenopathy Respiratory exam: Present: normal lung sounds bilaterally. Absent: respiratory distress, wheezes, rales, rhonchi, stridor Cardiovascular Exam: Present: regular rate, normal rhythm, normal heart sounds. Absent: systolic murmur, diastolic murmur, rubs, gallop, clicks GI/Abdominal exam: Present: soft, normal bowel sounds. Absent: distended, te nderness, guarding, rebound, rigid External exam: Present: other (dry, white discharge) Extremities exam: Present: normal inspection, full ROM, normal capillary refill. Absent: tenderness, pedal edema, joint swelling, calf tenderness Back exam: Present: normal inspection Neurological exam: Present: alert, oriented X3, CN II-XII intact Psychiatric exam: Present: normal affect, normal mood Skin exam: Present: warm, dry, intact, normal color. Absent: rash Course Vital Signs 02/26/22 02/27/22 22:54 03:47 Temperature 98.3 F Pulse Rate 70 63 Respiratory 16 18 Rate Blood Pressure 150/93 157/104 O2 Sat by Pulse 98 98 Oximetry Medical Decision Making - Medical Decision Making Upon arrival patient was placed in room 13. Thorough history and physical exam is performed. IV access is established and laboratory studies are conducted. Patient was given a liter bolus of normal saline. Glucose is 148. Kidney function 1.2. Urinalysis demonstrates budding yeast. Patient is given a dose of Diflucan. Discharged home and instructed to follow-up with her primary care doctor in 2-4 days. Did offer training in regards to medication injections however states that she will just follow up on Friday for this training. She is to check her glucose daily. Return for any new or worsening symptoms. Patient discharged home in stable condition - Lab Data Result diagrams: 02/27/22 01:42 02/27/22 01:42 Lab Results 02/26/22 02/27/22 02/27/22 Range/Units 22:57 01:03 01:42 WBC 11.5 H (3.8-10.6) k/uL RBC 4.23 (3.80-5.40) m/uL Hgb 12.3 (11.4-16.0) gm/dL Hct 37.3 (34.0-46.0) % MCV 88.3 (80.0-100.0) fL MCH 29.2 (25.0-35.0) pg MCHC 33.1 (31.0-37.0) g/dL RDW 13.9 (11.5-15.5) % Plt Count 218 (150-450) k/uL MPV 9.7 Neutrophils % 64 % Lymphocytes % 28 % Monocytes % 4 % Eosinophils % 2 % Basophils % 1 % Neutrophils # 7.4 (1.3-7.7) k/uL Lymphocytes # 3.2 (1.0-4.8) k/uL Monocytes # 0.5 (0-1.0) k/uL Eosinophils # 0.3 (0-0.7) k/uL Basophils # 0.1 (0-0.2) k/uL Hypochromasia Slight Sodium (137-145) mmol/L Potassium (3.5-5.1) mmol/L Chloride (98-107) mmol/L Carbon Dioxide (22-30) mmol/L Anion Gap mmol/L BUN (7-17) mg/dL Creatinine (0.52-1.04) mg/dL Est GFR (CKD-EPI)AfAm (>60 ml/min/1.73 sqM) Est GFR (CKD-EPI)NonAf (>60 ml/min/1.73 sqM) Glucose (74-99) mg/dL POC Glucose (mg/dL) 245 H 182 H (70-110) mg/dL POC Glu [employer] ID [place], [facility] [place] Calcium (8.4-10.2) mg/dL Magnesium (1.6-2.3) mg/dL Total Bilirubin (0.2-1.3) mg/dL AST (14-36) U/L ALT (4-34) U/L Alkaline Phosphatase (38-126) U/L Total Protein (6.3-8.2) g/dL Albumin (3.5-5.0) g/dL Urine Color Urine Appearance (Clear) Urine pH (5.0-8.0) Ur Specific [place] (1.001-1.035) Urine Protein (Negative) Urine Glucose (UA) (Negative) Urine Ketones (Negative) Urine Blood (Negative) Urine Nitrite (Negative) Urine Bilirubin (Negative) Urine Urobilinogen (<2.0) mg/dL Ur Leukocyte Esterase (Negative) Urine RBC (0-5) /hpf Urine WBC (0-5) /hpf Ur Squamous Epith Cells (0-4) /hpf Amorphous Sediment (None) /hpf Urine Bacteria (None) /hpf Urine Mucus (None) /hpf Urine Yeast (Budding) (None) /hpf Urine HCG, Qual (Not Detectd) Acetone, Qual (Negative) 02/27/22 02/27/22 02/27/22 Range/Units 01:42 01:42 01:42 WBC (3.8-10.6) k/uL RBC (3.80-5.40) m/uL Hgb (11.4-16.0) gm/dL Hct (34.0-46.0) % MCV (80.0-100.0) fL MCH (25.0-35.0) pg MCHC (31.0-37.0) g/dL RDW (11.5-15.5) % Plt Count (150-450) k/uL MPV Neutrophils % % Lymphocytes % % Monocytes % % Eosinophils % % Basophils % % Neutrophils # (1.3-7.7) k/uL Lymphocytes # (1.0-4.8) k/uL Monocytes # (0-1.0) k/uL Eosinophils # (0-0.7) k/uL Basophils # (0-0.2) k/uL Hypochromasia Sodium 136 L (137-145) mmol/L Potassium 4.7 (3.5-5.1) mmol/L Chloride 101 (98-107) mmol/L Carbon Dioxide 23 (22-30) mmol/L Anion Gap 12 mmol/L BUN 18 H (7-17) mg/dL Creatinine 1.28 H (0.52-1.04) mg/dL Est GFR (CKD-EPI)AfAm 62 (>60 ml/min/1.73 sqM) Est GFR (CKD-EPI)NonAf 54 (>60 ml/min/1.73 sqM) Glucose 189 H (74-99) mg/dL POC Glucose (mg/dL) (70-110) mg/dL POC Glu [employer] ID Calcium 9.9 (8.4-10.2) mg/dL Magnesium 1.7 (1.6-2.3) mg/dL Total Bilirubin 0.2 (0.2-1.3) mg/dL AST 29 (14-36) U/L ALT 23 (4-34) U/L Alkaline Phosphatase 82 (38-126) U/L Total Protein 6.9 (6.3-8.2) g/dL Albumin 4.0 (3.5-5.0) g/dL Urine Color Light Yellow Urine Appearance Cloudy H (Clear) Urine pH 6.0 (5.0-8.0) Ur Specific [place] 1.017 (1.001-1.035) Urine Protein 2+ H (Negative) Urine Glucose (UA) Negative (Negative) Urine Ketones Negative (Negative) Urine Blood Negative (Negative) Urine Nitrite Negative (Negative) Urine Bilirubin Negative (Negative) Urine Urobilinogen <2.0 (<2.0) mg/dL Ur Leukocyte Esterase Large H (Negative) Urine RBC 1 (0-5) /hpf Urine WBC 11 H (0-5) /hpf Ur Squamous Epith Cells 5 H (0-4) /hpf Amorphous Sediment Rare H (None) /hpf Urine Bacteria Rare H (None) /hpf Urine Mucus Rare H (None) /hpf Urine Yeast (Budding) Rare H (None) /hpf Urine HCG, Qual Not Detected (Not Detectd) Acetone, Qual Negative (Negative) 02/27/22 Range/Units 03:14 WBC (3.8-10.6) k/uL RBC (3.80-5.40) m/uL Hgb (11.4-16.0) gm/dL Hct (34.0-46.0) % MCV (80.0-100.0) fL MCH (25.0-35.0) pg MCHC (31.0-37.0) g/dL RDW (11.5-15.5) % Plt Count (150-450) k/uL MPV Neutrophils % % Lymphocytes % % Monocytes % % Eosinophils % % Basophils % % Neutrophils # (1.3-7.7) k/uL Lymphocytes # (1.0-4.8) k/uL Monocytes # (0-1.0) k/uL Eosinophils # (0-0.7) k/uL Basophils # (0-0.2) k/uL Hypochromasia Sodium (137-145) mmol/L Potassium (3.5-5.1) mmol/L Chloride (98-107) mmol/L Carbon Dioxide (22-30) mmol/L Anion Gap mmol/L BUN (7-17) mg/dL Creatinine (0.52-1.04) mg/dL Est GFR (CKD-EPI)AfAm (>60 ml/min/1.73 sqM) Est GFR (CKD-EPI)NonAf (>60 ml/min/1.73 sqM) Glucose (74-99) mg/dL POC Glucose (mg/dL) 148 H (70-110) mg/dL POC Glu [employer] Fighter ID [facility]ac[facility] Mireles Calcium (8.4-10.2) mg/dL Magnesium (1.6-2.3) mg/dL Total Bilirubin (0.2-1.3) mg/dL AST (14-36) U/L ALT (4-34) U/L Alkaline Phosphatase (38-126) U/L Total Protein (6.3-8.2) g/dL Albumin (3.5-5.0) g/dL Urine Color Urine Appearance (Clear) Urine pH (5.0-8.0) Ur Specific [place] (1.001-1.035) Urine Protein (Negative) Urine Glucose (UA) (Negative) Urine Ketones (Negative) Urine Blood (Negative) Urine Nitrite (Negative) Urine Bilirubin (Negative) Urine Urobilinogen (<2.0) mg/dL Ur Leukocyte Esterase (Negative) Urine RBC (0-5) /hpf Urine WBC (0-5) /hpf Ur Squamous Epith Cells (0-4) /hpf Amorphous Sediment (None) /hpf Urine Bacteria (None) /hpf Urine Mucus (None) /hpf Urine Yeast (Budding) (None) /hpf Urine HCG, Qual (Not Detectd) Acetone, Qual (Negative) Disposition Clinical Impression: Hyperglycemia, Yeast infection Disposition: HOME SELF-CARE Condition: Stable Instructions (If sedation given, give patient instructions): Diabetic Hyperglycemia (ED) Additional Instructions: Please continue taking your diabetic medications as directed. Follow-up with your doctor on Friday for your education regarding your new medication. Take the Diflucan in 72 hours if you continue to have itching. Return for any new or worsening symptoms Prescriptions: Fluconazole [Diflucan] 150 mg PO ONCE #1 tab Is patient prescribed a controlled substance at d/c from ED?: No Referrals: Daylin Mackay [Primary Care Provider] - 1-2 days Time of Disposition: 03:37
[2022-02-27 03:50] VITALS: BP 157/104; PULSE 63; RESP 18
== END 2022-02-27 03:50 | disposition home or self-care (01) ==
LOC: EC 22:07
DX: E11.65 Type 2 diabetes mellitus with hyperglycemia (principal); B37.9 Candidiasis, unspecified; Z79.84 Long term (current) use of oral hypoglycemic drugs
CPT/HCPCS: 36415; 80053; 81001; 81025; 82009; 83735; 85025; 87086; 96360; 96361; 99283

== ENCOUNTER → 2022-04-23 | Outpatient (CLI) | payer OTHER ==
[2022-04-23 13:23] LABS: INR 0.9 (<1.2)
[2022-04-23 18:07] LABS: Basophils # (A) 0.03 X 10*3/uL (0.00-0.10); Basophils % (A) 0.4 %; Eosinophils # (A) 0.14 X 10*3/uL (0.04-0.35); Eosinophils % (A) 1.7 %; HCT 36.2 % (37.2-46.3); HGB 11.7 g/dL (12.0-15.0); Immature Grans, Automated 0.2 %; Lymphocytes # (A) 2.25 X 10*3/uL (0.90-5.00); Lymphocytes % (A) 27.5 %; MCH 28.7 pg (27.0-32.0); MCHC 32.3 g/dL (32.0-37.0); MCV 88.7 fL (80.0-97.0); Mean Platelet Volume 11.5 fL (9.5-12.2); Monocytes # (A) 0.48 X 10*3/uL (0.20-1.00); Monocytes % (A) 5.9 %; NRBC Per 100 WBC 0 /100 WBCS (0.0-0.0); Neutrophils # (A) 5.25 X 10*3/uL (1.80-7.70); Neutrophils % (A) 64.3 %; Platelet Count 219 X 10*3/uL (140-440); RBC 4.08 X 10*6/uL (4.10-5.20); RDW 13.7 % (11.5-14.5); WBC 8.17 X 10*3/uL (4.50-10.00)
[2022-04-23 18:51] LABS: African American GFR (CKD) 55.5 (60.0-200.0); Anion Gap 10.4 mmol/L (10.00-18.00); Blood Urea Nitrogen 10.5 mg/dL (9.0-27.0); Carbon Dioxide 23.6 mmol/L (20.0-27.5); Non-African American GFR(CKD) 47.9 (60.0-200.0); Potassium 4.6 mmol/L (3.5-5.5)
== END | disposition home or self-care (01) ==
LOC: LABWHC1 11:41
PROVIDERS: ATTEND Surgery Vascular Surgery
DX: N17.0 Acute kidney failure with tubular necrosis (principal)
CPT/HCPCS: 36415; 80051; 82565; 84520; 85025; 85610; 85730

== ENCOUNTER 2022-04-24 07:54 | Day surgery (SDC) | payer OTHER ==
[2022-04-24] MEDS ORDERED: DESMOPRESSIN ACETATE 30 MCG in SODIUM CHLORIDE 0.9% 50 ML IV ONE (08:34)
[2022-04-24] MEDS ORDERED: HYDROmorphone 0.5 MG/0.5 ML SYRINGE IVP PRN (08:35)
[2022-04-24] MEDS ORDERED: ALPRAZolam 0.5 MG TAB PO PRN (08:35)
[2022-04-24 08:38] VITALS: TEMP 97.9
[2022-04-24 08:46] LABS: Glucose,Whole Blood 202 mg/dL (70-110)
[2022-04-24 11:24] VITALS: RESP 16
--- NOTE | 2022-04-24 11:30 | CT ---
EXAMINATION TYPE: CT biopsy renal LT DATE OF EXAM: 04/24/2022 COMPARISON: NONE HISTORY: Renal failure CT DLP: [id number] mGycm The procedure was explained to the patient. The risks, complications, benefits, and alternatives wer e discussed and any questions were answered. Informed consent was obtained. Patient was placed pron e on the CT table and prepped and draped in the usual sterile fashion. Utilizing CT guidance, an 18 gauge core biopsy needle access into the left renal cortex was achieved and three 18 gauge core samples were obtained. The patient was stable throughout the procedure and r emained stable upon discharge. IMPRESSION: Successful 18 gauge core biopsy of the kidney function.
[2022-04-24 14:20] VITALS: BP 124/71; PULSE 84
== END 2022-04-24 14:14 | disposition home or self-care (01) ==
LOC: RADPROMAIN 07:54
PROVIDERS: ATTEND Internal Medicine Nephrology
DX: I12.9 Hypertensive chronic kidney disease with stage 1 through stage 4 chronic kidney disease, or unspecified chronic kidney disease (principal); N18.9 Chronic kidney disease, unspecified; N17.0 Acute kidney failure with tubular necrosis; E66.9 Obesity, unspecified; E55.9 Vitamin D deficiency, unspecified; Z68.41 Body mass index [BMI] 40.0-44.9, adult
CPT/HCPCS: 86900; 86901; 86850; 36415; 50200; 77012; J2597; J1170